=== PATIENT | male | born 1960 | race Caucasian/White ===

== ENCOUNTER 2017-12-14 15:00 | Outpatient (RCR) | payer MEDICAID, SELFPAY ==
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
--- NOTE | 2017-12-14 15:30 | HP.PTDCSUM ---
HP - PT D/C Summary It has been my pleasure to treat RICK GEORGE under orders from AMEENA [email or web address] for the diagnosis of non displaced fx of medial condyle L femur, chodromalacia patella for a total of 12 visit(s). Discharge Date: 12/14/17 Please see the following information for a summary of their discharge status. - Subjective Subjective: No pain. Pt reports that he is able to do all that he needs to do. Pt does not have a follow up with his surgeon. - Pain L knee pain Pain Intensity (Out of 10): 0 - Overall Improvement % Improvement: 50 - Objective Objective/Function: Gait: Walks with WBOS and some increase weakness in L knee. LE MMT: L hip abd 4+/5, knee ext and knee flex 4+/5 B, L hip flex 4+/5. L knee AROM: 0-130 degrees L knee flex. Stairs: up and down stairs recip with 1 rail. - Goals Goal 1:: I HEP Goal Progress: Goal Met Goal 2:: Increase L knee flexion to 130 degrees knee flexion to equal that of the R Goal Progress: Goal Met Goal 3:: Increase L knee and hip strength to 4+/5 all planes Goal Progress: Goal Met Goal 4:: Be able to walk with normal gait pattern with no antalgic gait Goal Progress: Progressing - Plan Plan: DC PT to HEP - D/C Information Discharge Comments: DC PT to HEP If there are questions or concerns regarding this patient's physical therapy, please feel free to call me at [phone]. Thank you for the referral of this patient. Sincerely, Martha Flores
== END 2017-12-14 19:00 | disposition home or self-care (01) ==
LOC: PT 15:00
PROVIDERS: Family Provider Student in an Organized Health Care Education/Training Program; PCP Student in an Organized Health Care Education/Training Program; Visit Provider Physician Assistant
DX: S72.435D Nondisplaced fracture of medial condyle of left femur, subsequent encounter for closed fracture with routine healing (principal); M22.42 Chondromalacia patellae, left knee
CPT/HCPCS: 97110; 97161; 97530

== ENCOUNTER 2018-01-11 10:45 | Outpatient (RCR) | payer MEDICAID, SELFPAY ==
[2017-12-28 13:13] VITALS: BP 141/90; PULSE 99; RESP 16; TEMP 37.4; BMI 60.0
--- NOTE | 2017-12-28 17:13 | PCM.WC.HP ---
(1) Other specified peripheral vascular diseases Status: Chronic Current Visit: Yes Code(s): I73.89 - Other specified peripheral vascular diseases (2) Ulcer of right foot with fat layer exposed Status: Chronic Current Visit: Yes Code(s): L97.512 - Non-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ulcer of other part of right foot with fat layer exposed (3) Chronic ulcer of left foot with fat layer exposed Status: Chronic Current Visit: Yes Code(s): L97.522 - Non-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ulcer of other part of left foot with fat layer exposed (4) Xerosis of skin Status: Chronic Current Visit: Yes Code(s): L85.3 - Xerosis cutis (5) Non-compliance Status: Chronic Current Visit: Yes Code(s): Z91.19 - Patient's noncompliance with other medical treatment and regimen History of Present Illness Date of Service: 12/30/17 Chief Complaint: foot ulcers History of Wound: This 57-year-old male with multiple comorbidities was seen for ulcers of both feet with an onset of nearly 2 months ago. The ulcer started as cracks in the skin. He has been applying hydrogel. He admits he is not able to follow offloading instructions because he is a [place]. Recently he has been out in the [place] with surgical shoes and [employer] bands over the feet. He denies fever, chill, nausea, vomiting, foot pain today. His skin is dry skin symptoms. He does have rest paresthesias and continued lack of sensation due to his neuropathy. He has multiple wounds to his right hand fingers and asked for evaluation today. These have worsened over the past couple weeks and he denies odor. He applied Neosporin and this is not helping Past Medical History Past Medical History: Chronic Problems (Last Reviewed 11/01/17 @ 16:03 by Wilmer Cartwright) Other specified peripheral vascular diseases (Chronic) Ulcer of right foot with fat layer exposed (Chronic) Chronic ulcer of left foot with fat layer exposed (Chronic) Xerosis of skin (Chronic) Non-compliance (Chronic) Diabetes mellitus type 2 with complications (Chronic) Hypertension (Chronic) Neuropathy (Chronic) Most likely severe diabetic neuropathy Workup [facility] Cerebrovascular disease (Chronic) Right thalamic stroke Surgical History: - - Toe amputations RLE Allergies/Adverse Reactions: Allergies atorvastatin Adverse Reaction (Verified 12/28/17 13:47) Unknown metformin Adverse Reaction (Verified 12/28/17 13:47) Diarrhea Home Medications: Ambulatory Orders Medication Instructions Recorded Lisinopril [Zestril] 5 mg PO DAILY #30 tablet 10/08/13 Gabapentin [Neurontin] 600 mg PO TIDCM 11/07/14 Tizanidine HCl [Zanaflex] 4 mg PO DAILY 11/07/14 Cetirizine HCl [Zyrtec] 10 mg PO DAILY #1 tablet 11/09/14 Ammonium Lactate [Amlactin] 57 gm TP PRN PRN 10/04/17 Baclofen 60 mg PO DAILY 10/04/17 Celecoxib [Celebrex] 200 mg PO DAILY 10/04/17 Cholecalciferol (Vitamin D3) 5,000 unit PO DAILY 10/04/17 [Vitamin D3] Cyanocobalamin [Vitamin B12] 1,000 mcg IM Q30D 10/04/17 Insulin Glargine [Lantus SoloStar 15 units SC QHS 10/04/17 Pen] Insulin Lispro [Humalog] 12 - 20 unit SC ACHS 10/04/17 Levomefolate/B6/B12/Algal Oil 1 each PO DAILY 10/04/17 [Metanx Capsule] Nortriptyline HCl 50 mg PO QHS 10/04/17 TraMADol [Ultram] 50 mg PO Q4H PRN PRN 10/04/17 Aspirin 325 mg PO DAILY@0800 10/21/17 - Family History Maternal Family History: Family History (Last Reviewed 11/01/17 @ 16:03 by Wilmer Cartwright) Other Arthritis Hypertension Diabetes Paternal Family History: Family History (Last Reviewed 11/01/17 @ 16:03 by Wilmer Cartwright) Other Arthritis Hypertension Diabetes Smoking Status: Never smoker Review of Systems Constitutional: Denies: Chills, Fever, Weakness, Fatigue Cardiovascular: Denies: Claudication Respiratory: Denies: Shortness of Breath Gastrointestinal: Denies: Nausea, Vomiting Skin: Reports: Skin Changes, Wounds Neurological: Denies: Numbness - Physical Exam Vital Signs Temp Pulse Resp BP 99.3 F H 99 16 141/90 H 12/28/17 13:13 12/28/17 13:13 12/28/17 13:13 12/28/17 13:13 General: Alert, Oriented x3, Cooperative HEENT: Atraumatic Extremities: No cyanosis, Capillary Refill Less than 3 Seconds, No Calf Tenderness - negative kandace and nieves signs bilateral, Diminished Peripheral Pulses Skin: Ulcer/ Wound - No purulence, no erythema, streaking, no exposed capsular bone bilateral his skin is very xerotic with multiple cracks and fissures. Wound beds are pale and granular without any new undermining or tunneling. There is lack of hair bilateral Wound Measurements and Assessment WC - Nurse 1 - General Ulcer Measurement Start: 12/28/17 13:13 Freq: Status: Active Protocol: Activity Type Activity Date Activity User E-Sign Co-Sign Detail Recorded Client Recorded Date Recorded By Document 12/28/17 13:13 [id number] 12/28/17 13:36 12/28/17 13:13 Wound Center Nurse 1 [Ulcer Assessment] #4 R HEEL -Current Size (cm) - Length 0.5 -Current Size (cm) - Width 0.1 -Current Size (cm) - Depth 0.1 -Total Square Cm 0.05 -Photo Taken Yes -Classification - Rousseau Grading ( Grade 1 Diabetic Ulcer) -Exudate Amt None Present (0 %) -Wound Margin Thickened -Granulation Amt None Present (0 %) -Necrosis Amt Small (1-33%) -Necrotic Tissue Type Adherent Slough -Structure Exposed N/A -Texture (Mechelle-wound Skin Appearance) Callus -Moisture (Mechelle-wound Skin Appearance Dry/Scaly ) -Color (Mechelle-wound Skin Appearance) No Abnormality -Temperature (Mechelle-wound Skin No Abnormality Appearance) (Pt Warm) -Ulcer Cleansing Wound Cleanser -Foul Odor after Cleansing No -Anesthetic Used 4% Lidocaine Solution #3 R 4TH MED -Current Size (cm) - Length 0.4 -Current Size (cm) - Width 0.1 -Current Size (cm) - Depth 0.1 -Total Square Cm 0.04 -Photo Taken No -Classification - Rousseau Grading ( Grade 1 Diabetic Ulcer) -Exudate Amt None Present (0 %) -Wound Margin Thickened -Granulation Amt Small (1-33%) -Granulation Quality Pale -Necrosis Amt None Present (0 %) -Structure Exposed N/A -Texture (Mechelle-wound Skin Appearance) Callus -Moisture (Mechelle-wound Skin Appearance Dry/Scaly ) -Color (Mechelle-wound Skin Appearance) No Abnormality -Temperature (Mechelle-wound Skin No Abnormality Appearance) (Pt Warm) -Ulcer Cleansing Rinsed/ Irrigated with Saline -Foul Odor after Cleansing No -Anesthetic Used 4% Lidocaine Solution #2 L HEEL -Current Size (cm) - Length 1 -Current Size (cm) - Width 0.1 -Current Size (cm) - Depth 0.2 -Total Square Cm 0.1 -Photo Taken Yes -Classification - Rousseau Grading ( Grade 1 Diabetic Ulcer) -Exudate Amt None Present (0 %) -Wound Margin Thickened -Granulation Amt Small (1-33%) -Granulation Quality [place] -Necrosis Amt Small (1-33%) -Necrotic Tissue Type Adherent Slough -Structure Exposed N/A -Texture (Mechelle-wound Skin Appearance) Callus -Moisture (Mechelle-wound Skin Appearance Dry/Scaly ) -Color (Mechelle-wound Skin Appearance) No Abnormality -Temperature (Mechelle-wound Skin No Abnormality Appearance) (Pt Warm) -Ulcer Cleansing Wound Cleanser -Foul Odor after Cleansing No -Anesthetic Used 4% Lidocaine Solution #1 L LAT FOOT -Current Size (cm) - Length 0.2 -Current Size (cm) - Width 1.2 -Current Size (cm) - Depth 0.2 -Total Square Cm 0.24 -Photo Taken Yes -Epithelialization Small 1-33% -Classification - Rousseau Grading ( Grade 1 Diabetic Ulcer) -Exudate Amt None Present (0 %) -Wound Margin Thickened -Granulation Amt Small (1-33%) -Granulation Quality [place] -Necrosis Amt None Present (0 %) -Structure Exposed N/A -Texture (Mechelle-wound Skin Appearance) Callus -Moisture (Mechelle-wound Skin Appearance No Abnormality ) -Color (Mechelle-wound Skin Appearance) No Abnormality -Temperature (Mechelle-wound Skin No Abnormality Appearance) (Pt Warm) -Tenderness on Palpation (Mechelle-wound No Skin Appearance) -Ulcer Cleansing Rinsed/ Irrigated with Saline -Foul Odor after Cleansing No -Anesthetic Used 4% Lidocaine Solution [Edema Assessment] -Right Calf (cm) 35.8 -Right Ankle (cm) 21.5 -Left Calf (cm) 35.2 -Left Ankle (cm) 21.5 WC - Nurse 2 - General Ulcer CM Notes Start: 12/28/17 13:13 Freq: Status: Active Protocol: Activity Type Activity Date Activity User E-Sign Co-Sign Detail Recorded Client Recorded Date Recorded By Document 12/28/17 14:03 [id number] 12/28/17 14:22 12/28/17 14:03 Wound Center Nurse 2 [Procedure/Treatment] #4 R HEEL -Time 14:09 -Correct Patient Yes -Correct Side, Site, Position Yes -Correct Procedure Yes -Procedure Performed Yes -Type of Procedure Debridement -Clinical Debridement Subcutaneous -Post Debridement Size (cm) - Length 0.6 -Post Debridement Size (cm) - Width 0.2 -Post Debridement Size (cm) - Depth 0.1 -Total Square Cm 0.12 -Wound/Ulcer Outcome Not Healed -Ulcer Cleansing Rinsed/ Irrigated with Saline -Foul Odor after Cleansing No -Bioengineered Tissue No -Topical Lidocaine (%) 4 -Bleeding Controlled with Pressure -Treatment Response Procedure Tolerated Well #3 R 4TH MED -Time 14:09 -Correct Patient Yes -Correct Side, Site, Position Yes -Correct Procedure Yes -Procedure Performed Yes -Type of Procedure Debridement -Clinical Debridement Subcutaneous -Post Debridement Size (cm) - Length 0.5 -Post Debridement Size (cm) - Width 0.2 -Post Debridement Size (cm) - Depth 0.1 -Total Square Cm 0.10 -Wound/Ulcer Outcome Not Healed -Ulcer Cleansing Rinsed/ Irrigated with Saline -Foul Odor after Cleansing No -Bioengineered Tissue No -Topical Lidocaine (%) 4 -Bleeding Controlled with Pressure -Treatment Response Procedure Tolerated Well #2 L HEEL -Time 14:09 -Correct Patient Yes -Correct Side, Site, Position Yes -Correct Procedure Yes -Procedure Performed Yes -Type of Procedure Debridement -Clinical Debridement Subcutaneous -Post Debridement Size (cm) - Length 1.1 -Post Debridement Size (cm) - Width 0.2 -Post Debridement Size (cm) - Depth 0.2 -Total Square Cm 0.22 -Wound/Ulcer Outcome Not Healed -Ulcer Cleansing Rinsed/ Irrigated with Saline -Foul Odor after Cleansing No -Bioengineered Tissue No -Topical Lidocaine (%) 4 -Bleeding Controlled with Pressure -Treatment Response Procedure Tolerated Well #1 L LAT FOOT -Time 14:10 -Correct Patient Yes -Correct Side, Site, Position Yes -Correct Procedure Yes -Procedure Performed Yes -Type of Procedure Debridement -Clinical Debridement Subcutaneous -Post Debridement Size (cm) - Length 0.3 -Post Debridement Size (cm) - Width 1.3 -Post Debridement Size (cm) - Depth 0.2 -Total Square Cm 0.39 -Wound/Ulcer Outcome Not Healed -Ulcer Cleansing Rinsed/ Irrigated with Saline -Foul Odor after Cleansing No -Bioengineered Tissue No -Topical Lidocaine (%) 4 -Bleeding Controlled with Pressure -Treatment Response Procedure Tolerated Well [See Physician Procedure note for Specifics] Pain Scale: 0-10 Numeric [Pain] -Is Patient Pain Free? Yes Musculoskeletal: No Tenderness to Palpation of Joints or Extremities, Muscle Wasting, - - Dorsal contraction of lesser toes of prominent metatarsal heads. right 1 and 2 toe amputation Neurological: - - Lack of epicritic sensation light touch bilateral Psych/Mental Status: Normal Affect, Appropriate Debridement Note Post-Debridement Measurements/Treatment WC - Nurse 2 - General Ulcer CM Notes Start: 12/28/17 13:13 Freq: Status: Active Protocol: Activity Type Activity Date Activity User E-Sign Co-Sign Detail Recorded Client Recorded Date Recorded By Document 12/28/17 14:03 [id number] 12/28/17 14:22 12/28/17 14:03 Wound Center Nurse 2 #4 R HEEL -Time 14:09 -Correct Patient Yes -Correct Side, Site, Position Yes -Correct Procedure Yes -Procedure Performed Yes -Type of Procedure Debridement -Clinical Debridement Subcutaneous -Post Debridement Size (cm) - Length 0.6 -Post Debridement Size (cm) - Width 0.2 -Post Debridement Size (cm) - Depth 0.1 -Total Square Cm 0.12 -Wound/Ulcer Outcome Not Healed -Ulcer Cleansing Rinsed/ Irrigated with Saline -Foul Odor after Cleansing No -Bioengineered Tissue No -Topical Lidocaine (%) 4 -Bleeding Controlled with Pressure -Treatment Response Procedure Tolerated Well #3 R 4TH MED -Time 14:09 -Correct Patient Yes -Correct Side, Site, Position Yes -Correct Procedure Yes -Procedure Performed Yes -Type of Procedure Debridement -Clinical Debridement Subcutaneous -Post Debridement Size (cm) - Length 0.5 -Post Debridement Size (cm) - Width 0.2 -Post Debridement Size (cm) - Depth 0.1 -Total Square Cm 0.10 -Wound/Ulcer Outcome Not Healed -Ulcer Cleansing Rinsed/ Irrigated with Saline -Foul Odor after Cleansing No -Bioengineered Tissue No -Topical Lidocaine (%) 4 -Bleeding Controlled with Pressure -Treatment Response Procedure Tolerated Well #2 L HEEL -Time 14:09 -Correct Patient Yes -Correct Side, Site, Position Yes -Correct Procedure Yes -Procedure Performed Yes -Type of Procedure Debridement -Clinical Debridement Subcutaneous -Post Debridement Size (cm) - Length 1.1 -Post Debridement Size (cm) - Width 0.2 -Post Debridement Size (cm) - Depth 0.2 -Total Square Cm 0.22 -Wound/Ulcer Outcome Not Healed -Ulcer Cleansing Rinsed/ Irrigated with Saline -Foul Odor after Cleansing No -Bioengineered Tissue No -Topical Lidocaine (%) 4 -Bleeding Controlled with Pressure -Treatment Response Procedure Tolerated Well #1 L LAT FOOT -Time 14:10 -Correct Patient Yes -Correct Side, Site, Position Yes -Correct Procedure Yes -Procedure Performed Yes -Type of Procedure Debridement -Clinical Debridement Subcutaneous -Post Debridement Size (cm) - Length 0.3 -Post Debridement Size (cm) - Width 1.3 -Post Debridement Size (cm) - Depth 0.2 -Total Square Cm 0.39 -Wound/Ulcer Outcome Not Healed -Ulcer Cleansing Rinsed/ Irrigated with Saline -Foul Odor after Cleansing No -Bioengineered Tissue No -Topical Lidocaine (%) 4 -Bleeding Controlled with Pressure -Treatment Response Procedure Tolerated Well Pain Scale: 0-10 Numeric Is Patient Pain Free? Yes Wound debrided: lateral plantar foot Laterality: Left Wound Grade/Stage: grade 1 Type of Debridement: Excisional debridement Anesthesia Used: 4% Lidocaine Solution Depth: in the subcutaneous layer Percentage of wound debrided: 100 Instrument Used: #15 blade Tissue Removed: fibrous, devitalized subcutaneous, biofilm, slough Severity: Fat Layer Exposed Amount of bleeding with debridement: Mild Bleeding Controlled with: Pressure Patient tolerated procedure well - Additional Wound Wound debrided: heel Laterality: Left Wound Grade/Stage: grade 1 Type of Debridement: Excisional debridement Anesthesia Used: 4% Lidocaine Solution Depth: in the subcutaneous layer Percentage of wound debrided: 100 Instrument Used: #15 blade Tissue Removed: fibrous, devitalized subcutaneous, biofilm, slough Severity: Fat Layer Exposed Amount of bleeding with debridement: Mild Bleeding Controlled with: Pressure Patient tolerated procedure: Patient tolerated procedure well - Additional Wound Wound debrided: heel Laterality: Right Wound Grade/Stage: grade 1 Type of Debridement: Excisional debridement Anesthesia Used: 4% Lidocaine Solution Depth: in the subcutaneous layer Percentage of wound debrided: 100 Instrument Used: #15 blade Tissue Removed: fibrous, devitalized subcutaneous, biofilm, slough Severity: Fat Layer Exposed Amount of bleeding with debridement: Mild Bleeding Controlled with: Pressure Patient tolerated procedure: Patient tolerated procedure well - Additional Wound Wound debrided: sub 4th metatarsal head Laterality: Right Wound Grade/Stage: grade 1 Type of Debridement: Excisional debridement Anesthesia Used: 4% Lidocaine Solution Depth: in the subcutaneous layer Percentage of wound debrided: 100 Instrument Used: #15 blade Tissue Removed: fibrous, devitalized subcutaneous, biofilm, slough Severity: Fat Layer Exposed Amount of bleeding with debridement: Mild Bleeding Controlled with: Pressure Patient tolerated procedure: Patient tolerated procedure well Assessment/Plan Active Problems (Last Reviewed 11/01/17 @ 16:03 by Wilmer Cartwright) Other specified peripheral vascular diseases (Chronic) Ulcer of right foot with fat layer exposed (Chronic) Chronic ulcer of left foot with fat layer exposed (Chronic) Xerosis of skin (Chronic) Non-compliance (Chronic) Assessment: Bilateral heel ulcers with fat exposed. Right sub-fourth metatarsal head ulcer with fat exposed. Left sub-fifth metatarsal head ulcer with fat exposed. Diabetes with neuropathy. Xerosis. Hammertoes bilateral. Noncompliance. Finger ulcers right hand 1,2,3 Plan: I reviewed and discussed his care plan today. Also debridement was performed as noted in the clinical panel. He was reassured there are no signs of infection. Tegan dry dressings were applied. He is advised to change every day. To continue with strict offloading with surgical shoes. He already has these devices and compliance was discussed. I do not recommend he continues to walk around in this cold weather due to frostbite concern and his neuropathy. To moisturize the adjacent skin to improve skin integrity to his hands and feet. Updated labs and x-rays were ordered and these are pending. He understands he is at risk for continued infection development, delayed healing. He has nonhealing wounds to his hands and would like to seek intervention. I recommend he follow-up with a physician that can also treat him for the hand at the wound center here to follow-up with me on an intermittent basis if needed. Will communicate his care plan. To maintain and improve diabetic control and nutritional supplementation to optimize healing. A prescription for Gregg was provided.To return to clinic in one week or call sooner if problems or concerns.
[2018-01-04 10:51] VITALS: BP 153/83; PULSE 98; RESP 16; TEMP 36.9; BMI 60.0
--- NOTE | 2018-01-04 12:48 | PCM.WC.PN ---
(1) Ulcer of right foot with fat layer exposed Status: Chronic Current Visit: Yes Code(s): L97.512 - Non-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ulcer of other part of right foot with fat layer exposed (2) Chronic ulcer of left foot with fat layer exposed Status: Chronic Current Visit: Yes Code(s): L97.522 - Non-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ulcer of other part of left foot with fat layer exposed (3) Other specified peripheral vascular diseases Status: Chronic Current Visit: Yes Code(s): I73.89 - Other specified peripheral vascular diseases (4) Xerosis of skin Status: Chronic Current Visit: Yes Code(s): L85.3 - Xerosis cutis (5) Non-compliance Status: Chronic Current Visit: Yes Code(s): Z91.19 - Patient's noncompliance with other medical treatment and regimen Type of Wound Date of Service: 01/04/18 Chief Complaint: foot ulcers History of Wound: This 57-year-old male with multiple comorbidities was seen for ulcers of both feet with an onset of nearly 2 months ago. The ulcer started as cracks in the skin. He has been applying hydrogel. He has tried his best to decrease his activity and wear his offloading surgical shoes this past week. He thinks his right heel wound has healed and there is no drainage. He denies fever, chill, nausea, vomiting, foot pain today. His skin is dry skin symptoms. He does have rest paresthesias and continued lack of sensation due to his neuropathy. He has multiple wounds to his right hand fingers and he was seen today by Dr. Vance. Progress of Wound: improving - Physical Exam Vital Signs Temp Pulse Resp BP 98.4 F 98 16 153/83 H 01/04/18 10:51 01/04/18 10:51 01/04/18 10:51 01/04/18 10:51 General: Alert, Oriented x3, Cooperative Extremities: No cyanosis, Capillary Refill Less than 3 Seconds, No Calf Tenderness - Negative Ashanti and Palma bilateral, Diminished Peripheral Pulses, Edema, Tenderness - No pain with wound manipulation bilateral Skin: Ulcer/ Wound - No purulence, no erythema, streaking, no infection bilateral. Full epithelialization is noted to the right heel ulcer. The peripheral skin is atrophic and without hair bilateral Wound Measurements and Assessment WC - Nurse 1 - General Ulcer Measurement Start: 12/28/17 13:13 Freq: Status: Active Protocol: Activity Type Activity Date Activity User E-Sign Co-Sign Detail Recorded Client Recorded Date Recorded By Document 01/04/18 10:51 MARJORIE [id number] 01/04/18 11:07 MARJORIE 01/04/18 10:51 Wound Center Nurse 1 [Ulcer Assessment] 7-RIGHT RING FINGER -Combined with other wound No -Current Size (cm) - Length 0.2 -Current Size (cm) - Width 1.4 -Current Size (cm) - Depth 0.2 -Total Square Cm 0.28 -Photo Taken Yes -Epithelialization None Present -Tunneling No -Undermining/Tunneling No -Circular Undermining No -Classification - Thickness Full Thickness without Exposed Support Structure -Exudate Amt None Present (0 %) -Wound Margin Flat & Intact -Granulation Amt Large (67-100%) -Granulation Quality Red -Slough/Fibrin Yes -Necrosis Amt Small (1-33%) -Necrotic Tissue Type Adherent Slough -Structure Exposed N/A -Texture (Mechelle-wound Skin Appearance) Assessed Callus Localized Edema -Moisture (Mechelle-wound Skin Appearance Assessed ) Dry/Scaly -Color (Mechelle-wound Skin Appearance) Assessed -Temperature (Mechelle-wound Skin No Abnormality Appearance) (Pt Warm) -Tenderness on Palpation (Mechelle-wound No Skin Appearance) -Ulcer Cleansing Rinsed/ Irrigated with Saline -Foul Odor after Cleansing No -Anesthetic Used 4% Lidocaine Solution 6-RIGHT MIDDLE FINGER -Combined with other wound No -Current Size (cm) - Length 0.1 -Current Size (cm) - Width 0.8 -Current Size (cm) - Depth 0.2 -Total Square Cm 0.08 -Photo Taken Yes -Epithelialization Medium 34-66% -Tunneling No -Undermining/Tunneling No -Circular Undermining No -Classification - Thickness Full Thickness without Exposed Support Structure -Exudate Amt None Present (0 %) -Wound Margin Flat & Intact -Granulation Amt Medium (34-66%) -Granulation Quality Red -Slough/Fibrin Yes -Necrosis Amt Small (1-33%) -Necrotic Tissue Type Adherent Slough -Structure Exposed N/A -Texture (Mechelle-wound Skin Appearance) Assessed Callus -Moisture (Mechelle-wound Skin Appearance Assessed ) Dry/Scaly -Color (Mechelle-wound Skin Appearance) Assessed -Temperature (Mechelle-wound Skin No Abnormality Appearance) (Pt Warm) -Tenderness on Palpation (Mechelle-wound No Skin Appearance) -Ulcer Cleansing Rinsed/ Irrigated with Saline -Foul Odor after Cleansing No -Anesthetic Used 4% Lidocaine Solution 5-RIGHT INDEX FINGER -Combined with other wound No -Current Size (cm) - Length 0.5 -Current Size (cm) - Width 0.6 -Current Size (cm) - Depth 0.1 -Total Square Cm 0.30 -Photo Taken Yes -Epithelialization None Present -Tunneling No -Undermining/Tunneling No -Circular Undermining No -Classification - Thickness Unclassifiable (Eschar Covered ) -Exudate Amt None Present (0 %) -Wound Margin Flat & Intact -Granulation Amt None Present (0 %) -Slough/Fibrin Yes -Necrosis Amt Large (67-100%) -Necrotic Tissue Type Adherent Slough -Structure Exposed N/A -Texture (Mechelle-wound Skin Appearance) Assessed Localized Edema -Moisture (Mechelle-wound Skin Appearance Assessed ) Dry/Scaly -Color (Mechelle-wound Skin Appearance) Assessed -Temperature (Mechelle-wound Skin No Abnormality Appearance) (Pt Warm) -Tenderness on Palpation (Mechelle-wound No Skin Appearance) -Ulcer Cleansing Rinsed/ Irrigated with Saline -Foul Odor after Cleansing No -Anesthetic Used 4% Lidocaine Solution #4 R HEEL -Combined with other wound No -Current Size (cm) - Length 0.1 -Current Size (cm) - Width 0.1 -Current Size (cm) - Depth 0.1 -Total Square Cm 0.01 -Photo Taken No -Epithelialization Small 1-33% -Tunneling No -Undermining/Tunneling No -Circular Undermining No -Exudate Amt None Present (0 %) -Wound Margin Flat & Intact -Granulation Amt None Present (0 %) -Granulation Quality Pale -Necrosis Amt Large (67-100%) -Structure Exposed N/A -Texture (Mechelle-wound Skin Appearance) Assessed Callus -Moisture (Mechelle-wound Skin Appearance Assessed ) Dry/Scaly -Color (Mechelle-wound Skin Appearance) Assessed -Temperature (Mechelle-wound Skin No Abnormality Appearance) (Pt Warm) -Tenderness on Palpation (Mechelle-wound No Skin Appearance) -Ulcer Cleansing Rinsed/ Irrigated with Saline -Foul Odor after Cleansing No -Anesthetic Used 4% Lidocaine Solution #3 R 4TH METATARSAL -Combined with other wound No -Current Size (cm) - Length 0.2 -Current Size (cm) - Width 0.1 -Current Size (cm) - Depth 0.1 -Total Square Cm 0.02 -Photo Taken No -Epithelialization Small 1-33% -Tunneling No -Undermining/Tunneling No -Circular Undermining No -Exudate Amt Small (1-33%) -Exudate Type Serosanguineous -Wound Margin Flat & Intact -Granulation Amt Large (67-100%) -Granulation Quality Pale -Slough/Fibrin Yes -Necrosis Amt Small (1-33%) -Necrotic Tissue Type Adherent Slough -Structure Exposed N/A -Texture (Mechelle-wound Skin Appearance) Assessed Callus -Moisture (Mechelle-wound Skin Appearance Assessed ) Dry/Scaly -Color (Mechelle-wound Skin Appearance) Assessed -Temperature (Mechelle-wound Skin No Abnormality Appearance) (Pt Warm) -Tenderness on Palpation (Mechelle-wound No Skin Appearance) -Ulcer Cleansing Rinsed/ Irrigated with Saline -Foul Odor after Cleansing No -Anesthetic Used 4% Lidocaine Solution #2 L HEEL -Combined with other wound No -Current Size (cm) - Length 0.1 -Current Size (cm) - Width 1.8 -Current Size (cm) - Depth 0.1 -Total Square Cm 0.18 -Photo Taken No -Epithelialization Medium 34-66% -Tunneling No -Undermining/Tunneling No -Circular Undermining No -Exudate Amt Small (1-33%) -Exudate Type Serosanguineous -Wound Margin Flat & Intact -Granulation Amt Large (67-100%) -Granulation Quality Pale -Slough/Fibrin Yes -Necrosis Amt Small (1-33%) -Necrotic Tissue Type Adherent Slough -Structure Exposed N/A -Texture (Mechelle-wound Skin Appearance) Assessed Callus -Moisture (Mechelle-wound Skin Appearance Assessed ) Dry/Scaly -Color (Mechelle-wound Skin Appearance) Assessed -Temperature (Mechelle-wound Skin No Abnormality Appearance) (Pt Warm) -Tenderness on Palpation (Mechelle-wound No Skin Appearance) -Ulcer Cleansing Rinsed/ Irrigated with Saline -Foul Odor after Cleansing No -Anesthetic Used 4% Lidocaine Solution #1 L LAT FOOT -Combined with other wound No -Current Size (cm) - Length 0.2 -Current Size (cm) - Width 0.9 -Current Size (cm) - Depth 0.1 -Total Square Cm 0.18 -Photo Taken No -Epithelialization Small 1-33% -Tunneling No -Undermining/Tunneling No -Circular Undermining No -Exudate Amt Small (1-33%) -Exudate Type Serosanguineous -Wound Margin Flat & Intact -Granulation Amt Medium (34-66%) -Granulation Quality Pale Ester -Slough/Fibrin Yes -Necrosis Amt Small (1-33%) -Necrotic Tissue Type Adherent Slough -Structure Exposed N/A -Texture (Mechelle-wound Skin Appearance) Assessed Callus -Moisture (Mechelle-wound Skin Appearance Assessed ) Dry/Scaly -Color (Mechelle-wound Skin Appearance) Assessed -Temperature (Mechelle-wound Skin No Abnormality Appearance) (Pt Warm) -Tenderness on Palpation (Mechelle-wound No Skin Appearance) -Ulcer Cleansing Rinsed/ Irrigated with Saline -Foul Odor after Cleansing No -Anesthetic Used 4% Lidocaine Solution [Edema Assessment] -Lower Limb Edema Present NA WC - Nurse 2 - General Ulcer CM Notes Start: 12/28/17 13:13 Freq: Status: Active Protocol: Activity Type Activity Date Activity User E-Sign Co-Sign Detail Recorded Client Recorded Date Recorded By Document 01/04/18 11:32 TM [id number] 01/04/18 11:37 TM Document 01/04/18 12:33 DV [id number] 01/04/18 12:42 DV 01/04/18 01/04/18 11:32 12:33 Wound Center Nurse 2 [Procedure/Treatment] 7-RIGHT RING FINGER -Time 12:33 -Correct Patient Yes -Correct Side, Site, Position Yes -Correct Procedure Yes -Procedure Performed Yes -Type of Procedure Debridement -Clinical Debridement Subcutaneous -Post Debridement Size (cm) - Length 0.4 -Post Debridement Size (cm) - Width 1.5 -Post Debridement Size (cm) - Depth 0.2 -Total Square Cm 0.60 -Wound/Ulcer Outcome Not Healed -Ulcer Cleansing Rinsed/ Irrigated with Saline -Foul Odor after Cleansing No -Bioengineered Tissue No -Bleeding Controlled with Pressure -Treatment Response Procedure Tolerated Well 6-RIGHT MIDDLE FINGER -Time 12:34 -Correct Patient Yes -Correct Side, Site, Position Yes -Correct Procedure Yes -Procedure Performed Yes -Type of Procedure Debridement -Clinical Debridement Subcutaneous -Post Debridement Size (cm) - Length 0.3 -Post Debridement Size (cm) - Width 0.9 -Post Debridement Size (cm) - Depth 0.2 -Total Square Cm 0.27 -Wound/Ulcer Outcome Not Healed -Ulcer Cleansing Rinsed/ Irrigated with Saline -Foul Odor after Cleansing No -Bioengineered Tissue No -Bleeding Controlled with Pressure -Treatment Response Procedure Tolerated Well 5-RIGHT INDEX FINGER -Time 12:34 -Correct Patient Yes -Correct Side, Site, Position Yes -Correct Procedure Yes -Procedure Performed Yes -Type of Procedure Debridement -Clinical Debridement Subcutaneous -Post Debridement Size (cm) - Length 0.8 -Post Debridement Size (cm) - Width 0.7 -Post Debridement Size (cm) - Depth 0.1 -Total Square Cm 0.56 -Wound/Ulcer Outcome Not Healed -Ulcer Cleansing Rinsed/ Irrigated with Saline -Foul Odor after Cleansing No -Bioengineered Tissue No -Bleeding Controlled with Pressure -Treatment Response Procedure Tolerated Well #4 R HEEL -Time 11:32 -Correct Patient Yes -Correct Side, Site, Position Yes -Correct Procedure Yes -Procedure Performed Yes -Post Debridement Size (cm) - Length 0 -Post Debridement Size (cm) - Width 0 -Post Debridement Size (cm) - Depth 0 -Total Square Cm 0 -Wound/Ulcer Outcome Healed- Epithelialized -Ulcer Cleansing Rinsed/ Irrigated with Saline -Foul Odor after Cleansing No -Bioengineered Tissue No -Topical Lidocaine (%) 4 -Bleeding Controlled with NA -Treatment Response Procedure Tolerated Well #3 R 4TH METATARSAL -Time 11:33 -Correct Patient Yes -Correct Side, Site, Position Yes -Correct Procedure Yes -Procedure Performed Yes -Type of Procedure Debridement -Clinical Debridement Subcutaneous -Post Debridement Size (cm) - Length 0.3 -Post Debridement Size (cm) - Width 0.2 -Post Debridement Size (cm) - Depth 0.1 -Total Square Cm 0.06 -Wound/Ulcer Outcome Not Healed -Ulcer Cleansing Rinsed/ Irrigated with Saline -Foul Odor after Cleansing No -Bioengineered Tissue Yes -Type of bioengineered Tissue EPIFIX -Expiration Date 10/17/22 -Product Lot Number [id number] -Percent Used 33 -Topical Lidocaine (%) 4 -Bleeding Controlled with Pressure -Treatment Response Procedure Tolerated Well #2 L HEEL -Time 11:34 -Correct Patient Yes -Correct Side, Site, Position Yes -Correct Procedure Yes -Procedure Performed Yes -Type of Procedure Debridement -Clinical Debridement Subcutaneous -Post Debridement Size (cm) - Length 0.2 -Post Debridement Size (cm) - Width 1.9 -Post Debridement Size (cm) - Depth 0.1 -Total Square Cm 0.38 -Wound/Ulcer Outcome Not Healed -Ulcer Cleansing Rinsed/ Irrigated with Saline -Foul Odor after Cleansing No -Bioengineered Tissue Yes -Type of bioengineered Tissue EPIFIX -Expiration Date 10/17/22 -Product Lot Number [id number] -Percent Used 33 -Topical Lidocaine (%) 4 -Bleeding Controlled with Pressure -Treatment Response Procedure Tolerated Well #1 L LAT FOOT -Time 11:35 -Correct Patient Yes -Correct Side, Site, Position Yes -Correct Procedure Yes -Procedure Performed Yes -Type of Procedure Debridement -Clinical Debridement Subcutaneous -Post Debridement Size (cm) - Length 0.3 -Post Debridement Size (cm) - Width 1.0 -Post Debridement Size (cm) - Depth 0.1 -Total Square Cm 0.30 -Wound/Ulcer Outcome Not Healed -Ulcer Cleansing Rinsed/ Irrigated with Saline -Foul Odor after Cleansing No -Bioengineered Tissue Yes -Type of bioengineered Tissue EPIFIX -Expiration Date 10/17/22 -Product Lot Number [id number] -Percent Used 33 -Topical Lidocaine (%) 4 -Bleeding Controlled with Pressure -Treatment Response Procedure Tolerated Well [See Physician Procedure note for Specifics] Pain Scale: 0-10 Numeric [Pain] -Is Patient Pain Free? Yes Musculoskeletal: No Tenderness to Palpation of Joints or Extremities, Muscle Wasting, Tenderness - dorsal contraction of lesser digits and prominent metatarsal heads bilateral, - - Amputation status noted Neurological: - - lack of epicritic sensation light touch bilateral consistent with neuropathy Psych/Mental Status: Normal Affect, Appropriate Debridement Note Post-Debridement Measurements/Treatment WC - Nurse 2 - General Ulcer CM Notes Start: 12/28/17 13:13 Freq: Status: Active Protocol: Activity Type Activity Date Activity User E-Sign Co-Sign Detail Recorded Client Recorded Date Recorded By Document 12/28/17 14:03 [id number] 12/28/17 14:22 TM Document 01/04/18 11:32 TM [id number] 01/04/18 11:37 TM Document 01/04/18 12:33 [id number] 01/04/18 12:42 12/28/17 01/04/18 01/04/18 14:03 11:32 12:33 Wound Center Nurse 2 7-RIGHT RING FINGER -Time 12:33 -Correct Patient Yes -Correct Side, Site, Position Yes -Correct Procedure Yes -Procedure Performed Yes -Type of Procedure Debridement -Clinical Debridement Subcutaneous -Post Debridement Size (cm) - Length 0.4 -Post Debridement Size (cm) - Width 1.5 -Post Debridement Size (cm) - Depth 0.2 -Total Square Cm 0.60 -Wound/Ulcer Outcome Not Healed -Ulcer Cleansing Rinsed/ Irrigated with Saline -Foul Odor after Cleansing No -Bioengineered Tissue No -Bleeding Controlled with Pressure -Treatment Response Procedure Tolerated Well 6-RIGHT MIDDLE FINGER -Time 12:34 -Correct Patient Yes -Correct Side, Site, Position Yes -Correct Procedure Yes -Procedure Performed Yes -Type of Procedure Debridement -Clinical Debridement Subcutaneous -Post Debridement Size (cm) - Length 0.3 -Post Debridement Size (cm) - Width 0.9 -Post Debridement Size (cm) - Depth 0.2 -Total Square Cm 0.27 -Wound/Ulcer Outcome Not Healed -Ulcer Cleansing Rinsed/ Irrigated with Saline -Foul Odor after Cleansing No -Bioengineered Tissue No -Bleeding Controlled with Pressure -Treatment Response Procedure Tolerated Well 5-RIGHT INDEX FINGER -Time 12:34 -Correct Patient Yes -Correct Side, Site, Position Yes -Correct Procedure Yes -Procedure Performed Yes -Type of Procedure Debridement -Clinical Debridement Subcutaneous -Post Debridement Size (cm) - Length 0.8 -Post Debridement Size (cm) - Width 0.7 -Post Debridement Size (cm) - Depth 0.1 -Total Square Cm 0.56 -Wound/Ulcer Outcome Not Healed -Ulcer Cleansing Rinsed/ Irrigated with Saline -Foul Odor after Cleansing No -Bioengineered Tissue No -Bleeding Controlled with Pressure -Treatment Response Procedure Tolerated Well #4 R HEEL -Time 14:09 11:32 -Correct Patient Yes Yes -Correct Side, Site, Position Yes Yes -Correct Procedure Yes Yes -Procedure Performed Yes Yes -Type of Procedure Debridement -Clinical Debridement Subcutaneous -Post Debridement Size (cm) - Length 0.6 0 -Post Debridement Size (cm) - Width 0.2 0 -Post Debridement Size (cm) - Depth 0.1 0 -Total Square Cm 0.12 0 -Wound/Ulcer Outcome Not Healed Healed- Epithelialized -Ulcer Cleansing Rinsed/ Rinsed/ Irrigated with Irrigated with Saline Saline -Foul Odor after Cleansing No No -Bioengineered Tissue No No -Topical Lidocaine (%) 4 4 -Bleeding Controlled with Pressure NA -Treatment Response Procedure Procedure Tolerated Well Tolerated Well #3 R 4TH METATARSAL -Time 14:09 11:33 -Correct Patient Yes Yes -Correct Side, Site, Position Yes Yes -Correct Procedure Yes Yes -Procedure Performed Yes Yes -Type of Procedure Debridement Debridement -Clinical Debridement Subcutaneous Subcutaneous -Post Debridement Size (cm) - Length 0.5 0.3 -Post Debridement Size (cm) - Width 0.2 0.2 -Post Debridement Size (cm) - Depth 0.1 0.1 -Total Square Cm 0.10 0.06 -Wound/Ulcer Outcome Not Healed Not Healed -Ulcer Cleansing Rinsed/ Rinsed/ Irrigated with Irrigated with Saline Saline -Foul Odor after Cleansing No No -Bioengineered Tissue No Yes -Type of bioengineered Tissue EPIFIX -Expiration Date 10/17/22 -Product Lot Number [id number] -Percent Used 33 -Topical Lidocaine (%) 4 4 -Bleeding Controlled with Pressure Pressure -Treatment Response Procedure Procedure Tolerated Well Tolerated Well #2 L HEEL -Time 14:09 11:34 -Correct Patient Yes Yes -Correct Side, Site, Position Yes Yes -Correct Procedure Yes Yes -Procedure Performed Yes Yes -Type of Procedure Debridement Debridement -Clinical Debridement Subcutaneous Subcutaneous -Post Debridement Size (cm) - Length 1.1 0.2 -Post Debridement Size (cm) - Width 0.2 1.9 -Post Debridement Size (cm) - Depth 0.2 0.1 -Total Square Cm 0.22 0.38 -Wound/Ulcer Outcome Not Healed Not Healed -Ulcer Cleansing Rinsed/ Rinsed/ Irrigated with Irrigated with Saline Saline -Foul Odor after Cleansing No No -Bioengineered Tissue No Yes -Type of bioengineered Tissue EPIFIX -Expiration Date 10/17/22 -Product Lot Number [id number] -Percent Used 33 -Topical Lidocaine (%) 4 4 -Bleeding Controlled with Pressure Pressure -Treatment Response Procedure Procedure Tolerated Well Tolerated Well #1 L LAT FOOT -Time 14:10 11:35 -Correct Patient Yes Yes -Correct Side, Site, Position Yes Yes -Correct Procedure Yes Yes -Procedure Performed Yes Yes -Type of Procedure Debridement Debridement -Clinical Debridement Subcutaneous Subcutaneous -Post Debridement Size (cm) - Length 0.3 0.3 -Post Debridement Size (cm) - Width 1.3 1.0 -Post Debridement Size (cm) - Depth 0.2 0.1 -Total Square Cm 0.39 0.30 -Wound/Ulcer Outcome Not Healed Not Healed -Ulcer Cleansing Rinsed/ Rinsed/ Irrigated with Irrigated with Saline Saline -Foul Odor after Cleansing No No -Bioengineered Tissue No Yes -Type of bioengineered Tissue EPIFIX -Expiration Date 10/17/22 -Product Lot Number [id number] -Percent Used 33 -Topical Lidocaine (%) 4 4 -Bleeding Controlled with Pressure Pressure -Treatment Response Procedure Procedure Tolerated Well Tolerated Well Pain Scale: 0-10 Numeric Is Patient Pain Free? Yes Yes Wound debrided: sub 4 metatarsal head sulcus Laterality: Right Wound Grade/Stage: grade 1 Type of Debridement: Excisional debridement Anesthesia Used: 4% Lidocaine Solution Depth: in the subcutaneous layer Percentage of wound debrided: 100 Instrument Used: #15 blade Tissue Removed: fibrous, devitalized subcutaneous, biofilm, slough Severity: Fat Layer Exposed Amount of bleeding with debridement: Mild Bleeding Controlled with: Pressure Patient tolerated procedure well - Additional Wound Wound debrided: plantar lateral forefoot Laterality: Left Wound Grade/Stage: grade 1 Type of Debridement: Excisional debridement Anesthesia Used: 4% Lidocaine Solution Depth: in the subcutaneous layer Percentage of wound debrided: 100 Instrument Used: #15 blade Tissue Removed: fibrous, devitalized subcutaneous, biofilm, slough Severity: Fat Layer Exposed Amount of bleeding with debridement: Mild Bleeding Controlled with: Pressure Patient tolerated procedure: Patient tolerated procedure well Assessment/Plan Active Problems (Last Reviewed 11/01/17 @ 16:03 by Wilmer Cartwright) Other specified peripheral vascular diseases (Chronic) Ulcer of right foot with fat layer exposed (Chronic) Chronic ulcer of left foot with fat layer exposed (Chronic) Xerosis of skin (Chronic) Non-compliance (Chronic) Assessment: Right heel ulcer healed. left heel ulcers with fat exposed. Right sub-fourth metatarsal head ulcer with fat exposed. Left sub-fifth metatarsal head ulcer with fat exposed. Diabetes with neuropathy. Xerosis. Hammertoes bilateral. Noncompliance. Finger ulcers right hand 1,2,3 (sees Dr. Vance) Plan: I reviewed and discussed his care plan today. Subcutaneous ulceration debridement was performed as noted in the clinical panel. He was reassured there are no signs of infection. He is approved for application of advanced wound care product, epi fix. Verbal consent was obtained and he understands the indications, application process, and anticipated healing time and management. The product was applied to the 3 wound sites according to standard protocol and he tolerated as well. This was secured in place with a wound veil and Steri-Strips. He was advised to keep this clean, dry, and intact until follow-up next week. I provided him with a prescription for bilateral shower bags. To continue with strict offloading with surgical shoes. He already has these devices and compliance was discussed. To moisturize the adjacent skin to improve skin integrity to his hands and feet. Updated labs and x-rays were ordered. The following diagnostic data was reviewed: (labs 11/02/2017) Hemoglobin A1c 6.3%, total protein 7.2, albumin 3.7, creatinine 0.97, white blood cell count 10.25, platelet 345. His last progress note from Dr. Avery Escalante was also reviewed from November 01, 2017 in which it was noted he does also have a diagnosis of raynauds disease noted to the fingers and rest less leg syndrome amongst treatment of his other aformentioned chronic comorbidities. He understands he is at risk for continued infection development, delayed healing. He has nonhealing wounds to his hands and would like to seek intervention. Dr. Vance will see him today for this condition and intervention is greatly appreciated. To maintain and improve diabetic control and nutritional supplementation to optimize healing. A prescription for Gregg was provided. To return to clinic in one week or call sooner if problems or concerns. Answered all his questions.
--- NOTE | 2018-01-04 12:55 | PN.PCM_ITS ---
(1) Ulcer of right foot with fat layer exposed Status: Chronic Current Visit: Yes Code(s): L97.512 - Non-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ulcer of other part of right foot with fat layer exposed (2) Chronic ulcer of left foot with fat layer exposed Status: Chronic Current Visit: Yes Code(s): L97.522 - Non-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ulcer of other part of left foot with fat layer exposed (3) Other specified peripheral vascular diseases Status: Chronic Current Visit: Yes Code(s): I73.89 - Other specified peripheral vascular diseases (4) Xerosis of skin Status: Chronic Current Visit: Yes Code(s): L85.3 - Xerosis cutis (5) Non-compliance Status: Chronic Current Visit: Yes Code(s): Z91.19 - Patient's noncompliance with other medical treatment and regimen Type of Wound Date of Service: 01/04/18 Chief Complaint: foot ulcers History of Wound: This 57-year-old male with multiple comorbidities was seen for ulcers of both feet with an onset of nearly 2 months ago. The ulcer started as cracks in the skin. He has been applying hydrogel. He has tried his best to decrease his activity and wear his offloading surgical shoes this past week. He thinks his right heel wound has healed and there is no drainage. He denies fever, chill, nausea, vomiting, foot pain today. His skin is dry skin symptoms. He does have rest paresthesias and continued lack of sensation due to his neuropathy. He has multiple wounds to his right hand fingers and he was seen today by Dr. Vacne. Progress of Wound: improving - Physical Exam Vital Signs Temp Pulse Resp BP 98.4 F 98 16 153/83 H 01/04/18 10:51 01/04/18 10:51 01/04/18 10:51 01/04/18 10:51 General: Alert, Oriented x3, Cooperative Extremities: No cyanosis, Capillary Refill Less than 3 Seconds, No Calf Tenderness - Negative Ashanti and Palma bilateral, Diminished Peripheral Pulses, Edema, Tenderness - No pain with wound manipulation bilateral Skin: Ulcer/ Wound - No purulence, no erythema, streaking, no infection bilateral. Full epithelialization is noted to the right heel ulcer. The peripheral skin is atrophic and without hair bilateral Wound Measurements and Assessment WC - Nurse 1 - General Ulcer Measurement Start: 12/28/17 13:13 Freq: Status: Active Protocol: Activity Type Activity Date Activity User E-Sign Co-Sign Detail Recorded Client Recorded Date Recorded By Document 01/04/18 10:51 MARJORIE [id number] 01/04/18 11:07 MARJORIE 01/04/18 10:51 Wound Center Nurse 1 [Ulcer Assessment] 7-RIGHT RING FINGER -Combined with other wound No -Current Size (cm) - Length 0.2 -Current Size (cm) - Width 1.4 -Current Size (cm) - Depth 0.2 -Total Square Cm 0.28 -Photo Taken Yes -Epithelialization None Present -Tunneling No -Undermining/Tunneling No -Circular Undermining No -Classification - Thickness Full Thickness without Exposed Support Structure -Exudate Amt None Present (0 %) -Wound Margin Flat & Intact -Granulation Amt Large (67-100%) -Granulation Quality Red -Slough/Fibrin Yes -Necrosis Amt Small (1-33%) -Necrotic Tissue Type Adherent Slough -Structure Exposed N/A -Texture (Mechelle-wound Skin Appearance) Assessed Callus Localized Edema -Moisture (Mechelle-wound Skin Appearance Assessed ) Dry/Scaly -Color (Mechelle-wound Skin Appearance) Assessed -Temperature (Mechelle-wound Skin No Abnormality Appearance) (Pt Warm) -Tenderness on Palpation (Mechelle-wound No Skin Appearance) -Ulcer Cleansing Rinsed/ Irrigated with Saline -Foul Odor after Cleansing No -Anesthetic Used 4% Lidocaine Solution 6-RIGHT MIDDLE FINGER -Combined with other wound No -Current Size (cm) - Length 0.1 -Current Size (cm) - Width 0.8 -Current Size (cm) - Depth 0.2 -Total Square Cm 0.08 -Photo Taken Yes -Epithelialization Medium 34-66% -Tunneling No -Undermining/Tunneling No -Circular Undermining No -Classification - Thickness Full Thickness without Exposed Support Structure -Exudate Amt None Present (0 %) -Wound Margin Flat & Intact -Granulation Amt Medium (34-66%) -Granulation Quality Red -Slough/Fibrin Yes -Necrosis Amt Small (1-33%) -Necrotic Tissue Type Adherent Slough -Structure Exposed N/A -Texture (Mechelle-wound Skin Appearance) Assessed Callus -Moisture (Mechelle-wound Skin Appearance Assessed ) Dry/Scaly -Color (Mechelle-wound Skin Appearance) Assessed -Temperature (Mechelle-wound Skin No Abnormality Appearance) (Pt Warm) -Tenderness on Palpation (Mechelle-wound No Skin Appearance) -Ulcer Cleansing Rinsed/ Irrigated with Saline -Foul Odor after Cleansing No -Anesthetic Used 4% Lidocaine Solution 5-RIGHT INDEX FINGER -Combined with other wound No -Current Size (cm) - Length 0.5 -Current Size (cm) - Width 0.6 -Current Size (cm) - Depth 0.1 -Total Square Cm 0.30 -Photo Taken Yes -Epithelialization None Present -Tunneling No -Undermining/Tunneling No -Circular Undermining No -Classification - Thickness Unclassifiable (Eschar Covered ) -Exudate Amt None Present (0 %) -Wound Margin Flat & Intact -Granulation Amt None Present (0 %) -Slough/Fibrin Yes -Necrosis Amt Large (67-100%) -Necrotic Tissue Type Adherent Slough -Structure Exposed N/A -Texture (Mechelle-wound Skin Appearance) Assessed Localized Edema -Moisture (Mechelle-wound Skin Appearance Assessed ) Dry/Scaly -Color (Mechelle-wound Skin Appearance) Assessed -Temperature (Mechelle-wound Skin No Abnormality Appearance) (Pt Warm) -Tenderness on Palpation (Mechelle-wound No Skin Appearance) -Ulcer Cleansing Rinsed/ Irrigated with Saline -Foul Odor after Cleansing No -Anesthetic Used 4% Lidocaine Solution #4 R HEEL -Combined with other wound No -Current Size (cm) - Length 0.1 -Current Size (cm) - Width 0.1 -Current Size (cm) - Depth 0.1 -Total Square Cm 0.01 -Photo Taken No -Epithelialization Small 1-33% -Tunneling No -Undermining/Tunneling No -Circular Undermining No -Exudate Amt None Present (0 %) -Wound Margin Flat & Intact -Granulation Amt None Present (0 %) -Granulation Quality Pale -Necrosis Amt Large (67-100%) -Structure Exposed N/A -Texture (Mechelle-wound Skin Appearance) Assessed Callus -Moisture (Mechelle-wound Skin Appearance Assessed ) Dry/Scaly -Color (Mechelle-wound Skin Appearance) Assessed -Temperature (Mechelle-wound Skin No Abnormality Appearance) (Pt Warm) -Tenderness on Palpation (Mechelle-wound No Skin Appearance) -Ulcer Cleansing Rinsed/ Irrigated with Saline -Foul Odor after Cleansing No -Anesthetic Used 4% Lidocaine Solution #3 R 4TH METATARSAL -Combined with other wound No -Current Size (cm) - Length 0.2 -Current Size (cm) - Width 0.1 -Current Size (cm) - Depth 0.1 -Total Square Cm 0.02 -Photo Taken No -Epithelialization Small 1-33% -Tunneling No -Undermining/Tunneling No -Circular Undermining No -Exudate Amt Small (1-33%) -Exudate Type Serosanguineous -Wound Margin Flat & Intact -Granulation Amt Large (67-100%) -Granulation Quality Pale -Slough/Fibrin Yes -Necrosis Amt Small (1-33%) -Necrotic Tissue Type Adherent Slough -Structure Exposed N/A -Texture (Mechelle-wound Skin Appearance) Assessed Callus -Moisture (Mechelle-wound Skin Appearance Assessed ) Dry/Scaly -Color (Mechelle-wound Skin Appearance) Assessed -Temperature (Mechelle-wound Skin No Abnormality Appearance) (Pt Warm) -Tenderness on Palpation (Mechelle-wound No Skin Appearance) -Ulcer Cleansing Rinsed/ Irrigated with Saline -Foul Odor after Cleansing No -Anesthetic Used 4% Lidocaine Solution #2 L HEEL -Combined with other wound No -Current Size (cm) - Length 0.1 -Current Size (cm) - Width 1.8 -Current Size (cm) - Depth 0.1 -Total Square Cm 0.18 -Photo Taken No -Epithelialization Medium 34-66% -Tunneling No -Undermining/Tunneling No -Circular Undermining No -Exudate Amt Small (1-33%) -Exudate Type Serosanguineous -Wound Margin Flat & Intact -Granulation Amt Large (67-100%) -Granulation Quality Pale -Slough/Fibrin Yes -Necrosis Amt Small (1-33%) -Necrotic Tissue Type Adherent Slough -Structure Exposed N/A -Texture (Mechelle-wound Skin Appearance) Assessed Callus -Moisture (Mechelle-wound Skin Appearance Assessed ) Dry/Scaly -Color (Mechelle-wound Skin Appearance) Assessed -Temperature (Mechelle-wound Skin No Abnormality Appearance) (Pt Warm) -Tenderness on Palpation (Mechelle-wound No Skin Appearance) -Ulcer Cleansing Rinsed/ Irrigated with Saline -Foul Odor after Cleansing No -Anesthetic Used 4% Lidocaine Solution #1 L LAT FOOT -Combined with other wound No -Current Size (cm) - Length 0.2 -Current Size (cm) - Width 0.9 -Current Size (cm) - Depth 0.1 -Total Square Cm 0.18 -Photo Taken No -Epithelialization Small 1-33% -Tunneling No -Undermining/Tunneling No -Circular Undermining No -Exudate Amt Small (1-33%) -Exudate Type Serosanguineous -Wound Margin Flat & Intact -Granulation Amt Medium (34-66%) -Granulation Quality Pale [place] -Slough/Fibrin Yes -Necrosis Amt Small (1-33%) -Necrotic Tissue Type Adherent Slough -Structure Exposed N/A -Texture (Mechelle-wound Skin Appearance) Assessed Callus -Moisture (Mechelle-wound Skin Appearance Assessed ) Dry/Scaly -Color (Mechelle-wound Skin Appearance) Assessed -Temperature (Mechelle-wound Skin No Abnormality Appearance) (Pt Warm) -Tenderness on Palpation (Mechelle-wound No Skin Appearance) -Ulcer Cleansing Rinsed/ Irrigated with Saline -Foul Odor after Cleansing No -Anesthetic Used 4% Lidocaine Solution [Edema Assessment] -Lower Limb Edema Present NA WC - Nurse 2 - General Ulcer CM Notes Start: 12/28/17 13:13 Freq: Status: Active Protocol: Activity Type Activity Date Activity User E-Sign Co-Sign Detail Recorded Client Recorded Date Recorded By Document 01/04/18 11:32 TM [id number] 01/04/18 11:37 TM Document 01/04/18 12:33 DV [id number] 01/04/18 12:42 DV 01/04/18 01/04/18 11:32 12:33 Wound Center Nurse 2 [Procedure/Treatment] 7-RIGHT RING FINGER -Time 12:33 -Correct Patient Yes -Correct Side, Site, Position Yes -Correct Procedure Yes -Procedure Performed Yes -Type of Procedure Debridement -Clinical Debridement Subcutaneous -Post Debridement Size (cm) - Length 0.4 -Post Debridement Size (cm) - Width 1.5 -Post Debridement Size (cm) - Depth 0.2 -Total Square Cm 0.60 -Wound/Ulcer Outcome Not Healed -Ulcer Cleansing Rinsed/ Irrigated with Saline -Foul Odor after Cleansing No -Bioengineered Tissue No -Bleeding Controlled with Pressure -Treatment Response Procedure Tolerated Well 6-RIGHT MIDDLE FINGER -Time 12:34 -Correct Patient Yes -Correct Side, Site, Position Yes -Correct Procedure Yes -Procedure Performed Yes -Type of Procedure Debridement -Clinical Debridement Subcutaneous -Post Debridement Size (cm) - Length 0.3 -Post Debridement Size (cm) - Width 0.9 -Post Debridement Size (cm) - Depth 0.2 -Total Square Cm 0.27 -Wound/Ulcer Outcome Not Healed -Ulcer Cleansing Rinsed/ Irrigated with Saline -Foul Odor after Cleansing No -Bioengineered Tissue No -Bleeding Controlled with Pressure -Treatment Response Procedure Tolerated Well 5-RIGHT INDEX FINGER -Time 12:34 -Correct Patient Yes -Correct Side, Site, Position Yes -Correct Procedure Yes -Procedure Performed Yes -Type of Procedure Debridement -Clinical Debridement Subcutaneous -Post Debridement Size (cm) - Length 0.8 -Post Debridement Size (cm) - Width 0.7 -Post Debridement Size (cm) - Depth 0.1 -Total Square Cm 0.56 -Wound/Ulcer Outcome Not Healed -Ulcer Cleansing Rinsed/ Irrigated with Saline -Foul Odor after Cleansing No -Bioengineered Tissue No -Bleeding Controlled with Pressure -Treatment Response Procedure Tolerated Well #4 R HEEL -Time 11:32 -Correct Patient Yes -Correct Side, Site, Position Yes -Correct Procedure Yes -Procedure Performed Yes -Post Debridement Size (cm) - Length 0 -Post Debridement Size (cm) - Width 0 -Post Debridement Size (cm) - Depth 0 -Total Square Cm 0 -Wound/Ulcer Outcome Healed- Epithelialized -Ulcer Cleansing Rinsed/ Irrigated with Saline -Foul Odor after Cleansing No -Bioengineered Tissue No -Topical Lidocaine (%) 4 -Bleeding Controlled with NA -Treatment Response Procedure Tolerated Well #3 R 4TH METATARSAL -Time 11:33 -Correct Patient Yes -Correct Side, Site, Position Yes -Correct Procedure Yes -Procedure Performed Yes -Type of Procedure Debridement -Clinical Debridement Subcutaneous -Post Debridement Size (cm) - Length 0.3 -Post Debridement Size (cm) - Width 0.2 -Post Debridement Size (cm) - Depth 0.1 -Total Square Cm 0.06 -Wound/Ulcer Outcome Not Healed -Ulcer Cleansing Rinsed/ Irrigated with Saline -Foul Odor after Cleansing No -Bioengineered Tissue Yes -Type of bioengineered Tissue EPIFIX -Expiration Date 10/17/22 -Product Lot Number [id number] -Percent Used 33 -Topical Lidocaine (%) 4 -Bleeding Controlled with Pressure -Treatment Response Procedure Tolerated Well #2 L HEEL -Time 11:34 -Correct Patient Yes -Correct Side, Site, Position Yes -Correct Procedure Yes -Procedure Performed Yes -Type of Procedure Debridement -Clinical Debridement Subcutaneous -Post Debridement Size (cm) - Length 0.2 -Post Debridement Size (cm) - Width 1.9 -Post Debridement Size (cm) - Depth 0.1 -Total Square Cm 0.38 -Wound/Ulcer Outcome Not Healed -Ulcer Cleansing Rinsed/ Irrigated with Saline -Foul Odor after Cleansing No -Bioengineered Tissue Yes -Type of bioengineered Tissue EPIFIX -Expiration Date 10/17/22 -Product Lot Number [id number] -Percent Used 33 -Topical Lidocaine (%) 4 -Bleeding Controlled with Pressure -Treatment Response Procedure Tolerated Well #1 L LAT FOOT -Time 11:35 -Correct Patient Yes -Correct Side, Site, Position Yes -Correct Procedure Yes -Procedure Performed Yes -Type of Procedure Debridement -Clinical Debridement Subcutaneous -Post Debridement Size (cm) - Length 0.3 -Post Debridement Size (cm) - Width 1.0 -Post Debridement Size (cm) - Depth 0.1 -Total Square Cm 0.30 -Wound/Ulcer Outcome Not Healed -Ulcer Cleansing Rinsed/ Irrigated with Saline -Foul Odor after Cleansing No -Bioengineered Tissue Yes -Type of bioengineered Tissue EPIFIX -Expiration Date 10/17/22 -Product Lot Number [id number] -Percent Used 33 -Topical Lidocaine (%) 4 -Bleeding Controlled with Pressure -Treatment Response Procedure Tolerated Well [See Physician Procedure note for Specifics] Pain Scale: 0-10 Numeric [Pain] -Is Patient Pain Free? Yes Musculoskeletal: No Tenderness to Palpation of Joints or Extremities, Muscle Wasting, Tenderness - dorsal contraction of lesser digits and prominent metatarsal heads bilateral, - - Amputation status noted Neurological: - - lack of epicritic sensation light touch bilateral consistent with neuropathy Psych/Mental Status: Normal Affect, Appropriate Debridement Note Post-Debridement Measurements/Treatment WC - Nurse 2 - General Ulcer CM Notes Start: 12/28/17 13:13 Freq: Status: Active Protocol: Activity Type Activity Date Activity User E-Sign Co-Sign Detail Recorded Client Recorded Date Recorded By Document 12/28/17 14:03 [id number] 12/28/17 14:22 TM Document 01/04/18 11:32 TM [id number] 01/04/18 11:37 TM Document 01/04/18 12:33 [id number] 01/04/18 12:42 12/28/17 01/04/18 01/04/18 14:03 11:32 12:33 Wound Center Nurse 2 7-RIGHT RING FINGER -Time 12:33 -Correct Patient Yes -Correct Side, Site, Position Yes -Correct Procedure Yes -Procedure Performed Yes -Type of Procedure Debridement -Clinical Debridement Subcutaneous -Post Debridement Size (cm) - Length 0.4 -Post Debridement Size (cm) - Width 1.5 -Post Debridement Size (cm) - Depth 0.2 -Total Square Cm 0.60 -Wound/Ulcer Outcome Not Healed -Ulcer Cleansing Rinsed/ Irrigated with Saline -Foul Odor after Cleansing No -Bioengineered Tissue No -Bleeding Controlled with Pressure -Treatment Response Procedure Tolerated Well 6-RIGHT MIDDLE FINGER -Time 12:34 -Correct Patient Yes -Correct Side, Site, Position Yes -Correct Procedure Yes -Procedure Performed Yes -Type of Procedure Debridement -Clinical Debridement Subcutaneous -Post Debridement Size (cm) - Length 0.3 -Post Debridement Size (cm) - Width 0.9 -Post Debridement Size (cm) - Depth 0.2 -Total Square Cm 0.27 -Wound/Ulcer Outcome Not Healed -Ulcer Cleansing Rinsed/ Irrigated with Saline -Foul Odor after Cleansing No -Bioengineered Tissue No -Bleeding Controlled with Pressure -Treatment Response Procedure Tolerated Well 5-RIGHT INDEX FINGER -Time 12:34 -Correct Patient Yes -Correct Side, Site, Position Yes -Correct Procedure Yes -Procedure Performed Yes -Type of Procedure Debridement -Clinical Debridement Subcutaneous -Post Debridement Size (cm) - Length 0.8 -Post Debridement Size (cm) - Width 0.7 -Post Debridement Size (cm) - Depth 0.1 -Total Square Cm 0.56 -Wound/Ulcer Outcome Not Healed -Ulcer Cleansing Rinsed/ Irrigated with Saline -Foul Odor after Cleansing No -Bioengineered Tissue No -Bleeding Controlled with Pressure -Treatment Response Procedure Tolerated Well #4 R HEEL -Time 14:09 11:32 -Correct Patient Yes Yes -Correct Side, Site, Position Yes Yes -Correct Procedure Yes Yes -Procedure Performed Yes Yes -Type of Procedure Debridement -Clinical Debridement Subcutaneous -Post Debridement Size (cm) - Length 0.6 0 -Post Debridement Size (cm) - Width 0.2 0 -Post Debridement Size (cm) - Depth 0.1 0 -Total Square Cm 0.12 0 -Wound/Ulcer Outcome Not Healed Healed- Epithelialized -Ulcer Cleansing Rinsed/ Rinsed/ Irrigated with Irrigated with Saline Saline -Foul Odor after Cleansing No No -Bioengineered Tissue No No -Topical Lidocaine (%) 4 4 -Bleeding Controlled with Pressure NA -Treatment Response Procedure Procedure Tolerated Well Tolerated Well #3 R 4TH METATARSAL -Time 14:09 11:33 -Correct Patient Yes Yes -Correct Side, Site, Position Yes Yes -Correct Procedure Yes Yes -Procedure Performed Yes Yes -Type of Procedure Debridement Debridement -Clinical Debridement Subcutaneous Subcutaneous -Post Debridement Size (cm) - Length 0.5 0.3 -Post Debridement Size (cm) - Width 0.2 0.2 -Post Debridement Size (cm) - Depth 0.1 0.1 -Total Square Cm 0.10 0.06 -Wound/Ulcer Outcome Not Healed Not Healed -Ulcer Cleansing Rinsed/ Rinsed/ Irrigated with Irrigated with Saline Saline -Foul Odor after Cleansing No No -Bioengineered Tissue No Yes -Type of bioengineered Tissue EPIFIX -Expiration Date 10/17/22 -Product Lot Number [id number] -Percent Used 33 -Topical Lidocaine (%) 4 4 -Bleeding Controlled with Pressure Pressure -Treatment Response Procedure Procedure Tolerated Well Tolerated Well #2 L HEEL -Time 14:09 11:34 -Correct Patient Yes Yes -Correct Side, Site, Position Yes Yes -Correct Procedure Yes Yes -Procedure Performed Yes Yes -Type of Procedure Debridement Debridement -Clinical Debridement Subcutaneous Subcutaneous -Post Debridement Size (cm) - Length 1.1 0.2 -Post Debridement Size (cm) - Width 0.2 1.9 -Post Debridement Size (cm) - Depth 0.2 0.1 -Total Square Cm 0.22 0.38 -Wound/Ulcer Outcome Not Healed Not Healed -Ulcer Cleansing Rinsed/ Rinsed/ Irrigated with Irrigated with Saline Saline -Foul Odor after Cleansing No No -Bioengineered Tissue No Yes -Type of bioengineered Tissue EPIFIX -Expiration Date 10/17/22 -Product Lot Number [id number] -Percent Used 33 -Topical Lidocaine (%) 4 4 -Bleeding Controlled with Pressure Pressure -Treatment Response Procedure Procedure Tolerated Well Tolerated Well #1 L LAT FOOT -Time 14:10 11:35 -Correct Patient Yes Yes -Correct Side, Site, Position Yes Yes -Correct Procedure Yes Yes -Procedure Performed Yes Yes -Type of Procedure Debridement Debridement -Clinical Debridement Subcutaneous Subcutaneous -Post Debridement Size (cm) - Length 0.3 0.3 -Post Debridement Size (cm) - Width 1.3 1.0 -Post Debridement Size (cm) - Depth 0.2 0.1 -Total Square Cm 0.39 0.30 -Wound/Ulcer Outcome Not Healed Not Healed -Ulcer Cleansing Rinsed/ Rinsed/ Irrigated with Irrigated with Saline Saline -Foul Odor after Cleansing No No -Bioengineered Tissue No Yes -Type of bioengineered Tissue EPIFIX -Expiration Date 10/17/22 -Product Lot Number [id number] -Percent Used 33 -Topical Lidocaine (%) 4 4 -Bleeding Controlled with Pressure Pressure -Treatment Response Procedure Procedure Tolerated Well Tolerated Well Pain Scale: 0-10 Numeric Is Patient Pain Free? Yes Yes Wound debrided: sub 4 metatarsal head sulcus Laterality: Right Wound Grade/Stage: grade 1 Type of Debridement: Excisional debridement Anesthesia Used: 4% Lidocaine Solution Depth: in the subcutaneous layer Percentage of wound debrided: 100 Instrument Used: #15 blade Tissue Removed: fibrous, devitalized subcutaneous, biofilm, slough Severity: Fat Layer Exposed Amount of bleeding with debridement: Mild Bleeding Controlled with: Pressure Patient tolerated procedure well - Additional Wound Wound debrided: plantar lateral forefoot Laterality: Left Wound Grade/Stage: grade 1 Type of Debridement: Excisional debridement Anesthesia Used: 4% Lidocaine Solution Depth: in the subcutaneous layer Percentage of wound debrided: 100 Instrument Used: #15 blade Tissue Removed: fibrous, devitalized subcutaneous, biofilm, slough Severity: Fat Layer Exposed Amount of bleeding with debridement: Mild Bleeding Controlled with: Pressure Patient tolerated procedure: Patient tolerated procedure well Assessment/Plan Active Problems (Last Reviewed 11/01/17 @ 16:03 by Wilmer Cartwright) Other specified peripheral vascular diseases (Chronic) Ulcer of right foot with fat layer exposed (Chronic) Chronic ulcer of left foot with fat layer exposed (Chronic) Xerosis of skin (Chronic) Non-compliance (Chronic) Assessment: Right heel ulcer healed. left heel ulcers with fat exposed. Right sub-fourth metatarsal head ulcer with fat exposed. Left sub-fifth metatarsal head ulcer with fat exposed. Diabetes with neuropathy. Xerosis. Hammertoes bilateral. Noncompliance. Finger ulcers right hand 1,2,3 (sees Dr. Vance) Plan: I reviewed and discussed his care plan today. Subcutaneous ulceration debridement was performed as noted in the clinical panel. He was reassured there are no signs of infection. He is approved for application of advanced wound care product, epi fix. Verbal consent was obtained and he understands the indications, application process, and anticipated healing time and management. The product was applied to the 3 wound sites according to standard protocol and he tolerated as well. This was secured in place with a wound veil and Steri-Strips. He was advised to keep this clean, dry, and intact until follow-up next week. I provided him with a prescription for bilateral shower bags. To continue with strict offloading with surgical shoes. He already has these devices and compliance was discussed. To moisturize the adjacent skin to improve skin integrity to his hands and feet. Updated labs and x-rays were ordered. The following diagnostic data was reviewed: (labs 11/02/2017) Hemoglobin A1c 6.3%, total protein 7.2, albumin 3.7, creatinine 0.97, white blood cell count 10.25, platelet 345. His last progress note from Dr. Avery Escalante was also reviewed from November 01, 2017 in which it was noted he does also have a diagnosis of raynauds disease noted to the fingers and rest less leg syndrome amongst treatment of his other aformentioned chronic comorbidities. He understands he is at risk for continued infection development , delayed healing. He has nonhealing wounds to his hands and would like to seek intervention. Dr. Vance will see him today for this condition and intervention is greatly appreciated. To maintain and improve diabetic control and nutritional supplementation to optimize healing. A prescription for Gregg was provided. To return to clinic in one week or call sooner if problems or concerns. Answered all his questions.
--- NOTE | 2018-01-04 19:00 | PCM.WC.HP ---
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 (3) Diabetes mellitus type 2 with complications Status: Chronic Current Visit: No Code(s): E11.8 - Type 2 diabetes mellitus with unspecified complications History of Present Illness Date of Service: 01/04/18 Chief Complaint: Ulcers of right index, middle and ring finger. History of Wound: Mr. Espinoza is a 57yo with PMH of Diabetes currently seeing Dr Aparicio for lower extremity ulcers. I was asked to see him for chronic ulcers of his right index, middle and ring fingers. He is a [place] and has chronic upper extremity callus and has had ulcers which have typically healed well however, current episodes of his right middle and ring fingers have persisted despite management with neosporin application. There is no significant callous of his right index finger however, he noted the ulcer sometime in September after he had been in 0 degree weather with exposed hands for a long time. He reports pain in that digit but denies any discharge from the site. He has also been applying Neosporin without any significant improvement. 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 Diabetes mellitus type 2 with complications (Chronic) Hypertension (Chronic) Neuropathy (Chronic) Most likely severe diabetic neuropathy [facility]up [facility] Cerebrovascular disease (Chronic) Right thalamic stroke Surgical History: - - Toe amputations RLE Allergies/Adverse Reactions: Allergies atorvastatin Adverse Reaction (Verified 12/28/17 13:47) Unknown metformin Adverse Reaction (Verified 12/28/17 13:47) Diarrhea Home Medications: Ambulatory Orders Medication Instructions Recorded Lisinopril [Zestril] 5 mg PO DAILY #30 tablet 10/08/13 Gabapentin [Neurontin] 600 mg PO TIDCM 11/07/14 Tizanidine HCl [Zanaflex] 4 mg PO DAILY 11/07/14 Cetirizine HCl [Zyrtec] 10 mg PO DAILY #1 tablet 11/09/14 Ammonium Lactate [Amlactin] 57 gm TP PRN PRN 10/04/17 Baclofen 60 mg PO DAILY 10/04/17 Celecoxib [Celebrex] 200 mg PO DAILY 10/04/17 Cholecalciferol (Vitamin D3) 5,000 unit PO DAILY 10/04/17 [Vitamin D3] Cyanocobalamin [Vitamin B12] 1,000 mcg IM Q30D 10/04/17 Insulin Glargine [Lantus SoloStar 15 units SC QHS 10/04/17 Pen] Insulin Lispro [Humalog] 12 - 20 unit SC ACHS 10/04/17 Levomefolate/B6/B12/Algal Oil 1 each PO DAILY 10/04/17 [Metanx Capsule] Nortriptyline HCl 50 mg PO QHS 10/04/17 TraMADol [Ultram] 50 mg PO Q4H PRN PRN 10/04/17 Aspirin 325 mg PO DAILY@0800 10/21/17 - Family History Maternal Family History: Family History (Last Reviewed 11/01/17 @ 16:03 by Wilmer Cartwright) Other Arthritis Hypertension Diabetes Paternal Family History: Family History (Last Reviewed 11/01/17 @ 16:03 by Wilmer Cartwright) Other Arthritis Hypertension Diabetes Smoking Status: Never smoker Review of Systems Constitutional: Denies: Anorexia, Chills, Fever Eyes: Denies: Pain, Redness HEENT: Denies: Difficulty Hearing, Difficulty Swallowing Cardiovascular: Denies: Chest Pain, Heaviness Respiratory: Denies: Cough, Hemoptysis Gastrointestinal: Denies: Abdominal Pain, Hematemesis, Vomiting Skin: Denies: Dryness, Jaundice - Physical Exam Vital Signs Temp Pulse Resp BP 98.4 F 98 16 153/83 H 01/04/18 10:51 01/04/18 10:51 01/04/18 10:51 01/04/18 10:51 General: Alert, Oriented x3, Cooperative, No apparent distress HEENT: Atraumatic, Normocephalic Oral: Moist Mucosa Neck: Supple, No Nuchal Rigidity Lungs: Normal air movement Cardiovascular: Regular rate Abdomen: Soft, Non Tender Extremities: No cyanosis Wound Measurements and Assessment WC - Nurse 1 - General Ulcer Measurement Start: 12/28/17 13:13 Freq: Status: Active Protocol: Activity Type Activity Date Activity User E-Sign Co-Sign Detail Recorded Client Recorded Date Recorded By Document 01/04/18 10:51 [id number] 01/04/18 11:07 MARJORIE 01/04/18 10:51 Wound Center Nurse 1 [Ulcer Assessment] 7-RIGHT RING FINGER -Combined with other wound No -Current Size (cm) - Length 0.2 -Current Size (cm) - Width 1.4 -Current Size (cm) - Depth 0.2 -Total Square Cm 0.28 -Photo Taken Yes -Epithelialization None Present -Tunneling No -Undermining/Tunneling No -Circular Undermining No -Classification - Thickness Full Thickness without Exposed Support Structure -Exudate Amt None Present (0 %) -Wound Margin Flat & Intact -Granulation Amt Large (67-100%) -Granulation Quality Red -Slough/Fibrin Yes -Necrosis Amt Small (1-33%) -Necrotic Tissue Type Adherent Slough -Structure Exposed N/A -Texture (Mechelle-wound Skin Appearance) Assessed Callus Localized Edema -Moisture (Mechelle-wound Skin Appearance Assessed ) Dry/Scaly -Color (Mechelle-wound Skin Appearance) Assessed -Temperature (Mechelle-wound Skin No Abnormality Appearance) (Pt Warm) -Tenderness on Palpation (Mechelle-wound No Skin Appearance) -Ulcer Cleansing Rinsed/ Irrigated with Saline -Foul Odor after Cleansing No -Anesthetic Used 4% Lidocaine Solution 6-RIGHT MIDDLE FINGER -Combined with other wound No -Current Size (cm) - Length 0.1 -Current Size (cm) - Width 0.8 -Current Size (cm) - Depth 0.2 -Total Square Cm 0.08 -Photo Taken Yes -Epithelialization Medium 34-66% -Tunneling No -Undermining/Tunneling No -Circular Undermining No -Classification - Thickness Full Thickness without Exposed Support Structure -Exudate Amt None Present (0 %) -Wound Margin Flat & Intact -Granulation Amt Medium (34-66%) -Granulation Quality Red -Slough/Fibrin Yes -Necrosis Amt Small (1-33%) -Necrotic Tissue Type Adherent Slough -Structure Exposed N/A -Texture (Mechelle-wound Skin Appearance) Assessed Callus -Moisture (Mechelle-wound Skin Appearance Assessed ) Dry/Scaly -Color (Mechelle-wound Skin Appearance) Assessed -Temperature (Mechelle-wound Skin No Abnormality Appearance) (Pt Warm) -Tenderness on Palpation (Mechelle-wound No Skin Appearance) -Ulcer Cleansing Rinsed/ Irrigated with Saline -Foul Odor after Cleansing No -Anesthetic Used 4% Lidocaine Solution 5-RIGHT INDEX FINGER -Combined with other wound No -Current Size (cm) - Length 0.5 -Current Size (cm) - Width 0.6 -Current Size (cm) - Depth 0.1 -Total Square Cm 0.30 -Photo Taken Yes -Epithelialization None Present -Tunneling No -Undermining/Tunneling No -Circular Undermining No -Classification - Thickness Unclassifiable (Eschar Covered ) -Exudate Amt None Present (0 %) -Wound Margin Flat & Intact -Granulation Amt None Present (0 %) -Slough/Fibrin Yes -Necrosis Amt Large (67-100%) -Necrotic Tissue Type Adherent Slough -Structure Exposed N/A -Texture (Mechelle-wound Skin Appearance) Assessed Localized Edema -Moisture (Mechelle-wound Skin Appearance Assessed ) Dry/Scaly -Color (Mechelle-wound Skin Appearance) Assessed -Temperature (Mechelle-wound Skin No Abnormality Appearance) (Pt Warm) -Tenderness on Palpation (Mechelle-wound No Skin Appearance) -Ulcer Cleansing Rinsed/ Irrigated with Saline -Foul Odor after Cleansing No -Anesthetic Used 4% Lidocaine Solution #4 R HEEL -Combined with other wound No -Current Size (cm) - Length 0.1 -Current Size (cm) - Width 0.1 -Current Size (cm) - Depth 0.1 -Total Square Cm 0.01 -Photo Taken No -Epithelialization Small 1-33% -Tunneling No -Undermining/Tunneling No -Circular Undermining No -Exudate Amt None Present (0 %) -Wound Margin Flat & Intact -Granulation Amt None Present (0 %) -Granulation Quality Pale -Necrosis Amt Large (67-100%) -Structure Exposed N/A -Texture (Mechelle-wound Skin Appearance) Assessed Callus -Moisture (Mechelle-wound Skin Appearance Assessed ) Dry/Scaly -Color (Mechelle-wound Skin Appearance) Assessed -Temperature (Mechelle-wound Skin No Abnormality Appearance) (Pt Warm) -Tenderness on Palpation (Mechelle-wound No Skin Appearance) -Ulcer Cleansing Rinsed/ Irrigated with Saline -Foul Odor after Cleansing No -Anesthetic Used 4% Lidocaine Solution #3 R 4TH METATARSAL -Combined with other wound No -Current Size (cm) - Length 0.2 -Current Size (cm) - Width 0.1 -Current Size (cm) - Depth 0.1 -Total Square Cm 0.02 -Photo Taken No -Epithelialization Small 1-33% -Tunneling No -Undermining/Tunneling No -Circular Undermining No -Exudate Amt Small (1-33%) -Exudate Type Serosanguineous -Wound Margin Flat & Intact -Granulation Amt Large (67-100%) -Granulation Quality Pale -Slough/Fibrin Yes -Necrosis Amt Small (1-33%) -Necrotic Tissue Type Adherent Slough -Structure Exposed N/A -Texture (Mechelle-wound Skin Appearance) Assessed Callus -Moisture (Mechelle-wound Skin Appearance Assessed ) Dry/Scaly -Color (Mechelle-wound Skin Appearance) Assessed -Temperature (Mechelle-wound Skin No Abnormality Appearance) (Pt Warm) -Tenderness on Palpation (Mechelle-wound No Skin Appearance) -Ulcer Cleansing Rinsed/ Irrigated with Saline -Foul Odor after Cleansing No -Anesthetic Used 4% Lidocaine Solution #2 L HEEL -Combined with other wound No -Current Size (cm) - Length 0.1 -Current Size (cm) - Width 1.8 -Current Size (cm) - Depth 0.1 -Total Square Cm 0.18 -Photo Taken No -Epithelialization Medium 34-66% -Tunneling No -Undermining/Tunneling No -Circular Undermining No -Exudate Amt Small (1-33%) -Exudate Type Serosanguineous -Wound Margin Flat & Intact -Granulation Amt Large (67-100%) -Granulation Quality Pale -Slough/Fibrin Yes -Necrosis Amt Small (1-33%) -Necrotic Tissue Type Adherent Slough -Structure Exposed N/A -Texture (Mechelle-wound Skin Appearance) Assessed Callus -Moisture (Mechelle-wound Skin Appearance Assessed ) Dry/Scaly -Color (Mechelle-wound Skin Appearance) Assessed -Temperature (Mechelle-wound Skin No Abnormality Appearance) (Pt Warm) -Tenderness on Palpation (Mechelle-wound No Skin Appearance) -Ulcer Cleansing Rinsed/ Irrigated with Saline -Foul Odor after Cleansing No -Anesthetic Used 4% Lidocaine Solution #1 L LAT FOOT -Combined with other wound No -Current Size (cm) - Length 0.2 -Current Size (cm) - Width 0.9 -Current Size (cm) - Depth 0.1 -Total Square Cm 0.18 -Photo Taken No -Epithelialization Small 1-33% -Tunneling No -Undermining/Tunneling No -Circular Undermining No -Exudate Amt Small (1-33%) -Exudate Type Serosanguineous -Wound Margin Flat & Intact -Granulation Amt Medium (34-66%) -Granulation Quality Pale [place] -Slough/Fibrin Yes -Necrosis Amt Small (1-33%) -Necrotic Tissue Type Adherent Slough -Structure Exposed N/A -Texture (Mechelle-wound Skin Appearance) Assessed Callus -Moisture (Mechelle-wound Skin Appearance Assessed ) Dry/Scaly -Color (Mechelle-wound Skin Appearance) Assessed -Temperature (Mechelle-wound Skin No Abnormality Appearance) (Pt Warm) -Tenderness on Palpation (Mechelle-wound No Skin Appearance) -Ulcer Cleansing Rinsed/ Irrigated with Saline -Foul Odor after Cleansing No -Anesthetic Used 4% Lidocaine Solution [Edema Assessment] -Lower Limb Edema Present NA WC - Nurse 2 - General Ulcer CM Notes Start: 12/28/17 13:13 Freq: Status: Active Protocol: Activity Type Activity Date Activity User E-Sign Co-Sign Detail Recorded Client Recorded Date Recorded By Document 01/04/18 11:32 TM [id number] 01/04/18 11:37 TM Document 01/04/18 12:33 DV [id number] 01/04/18 12:42 DV 01/04/18 01/04/18 11:32 12:33 Wound Center Nurse 2 [Procedure/Treatment] 7-RIGHT RING FINGER -Time 12:33 -Correct Patient Yes -Correct Side, Site, Position Yes -Correct Procedure Yes -Procedure Performed Yes -Type of Procedure Debridement -Clinical Debridement Subcutaneous -Post Debridement Size (cm) - Length 0.4 -Post Debridement Size (cm) - Width 1.5 -Post Debridement Size (cm) - Depth 0.2 -Total Square Cm 0.60 -Wound/Ulcer Outcome Not Healed -Ulcer Cleansing Rinsed/ Irrigated with Saline -Foul Odor after Cleansing No -Bioengineered Tissue No -Bleeding Controlled with Pressure -Treatment Response Procedure Tolerated Well 6-RIGHT MIDDLE FINGER -Time 12:34 -Correct Patient Yes -Correct Side, Site, Position Yes -Correct Procedure Yes -Procedure Performed Yes -Type of Procedure Debridement -Clinical Debridement Subcutaneous -Post Debridement Size (cm) - Length 0.3 -Post Debridement Size (cm) - Width 0.9 -Post Debridement Size (cm) - Depth 0.2 -Total Square Cm 0.27 -Wound/Ulcer Outcome Not Healed -Ulcer Cleansing Rinsed/ Irrigated with Saline -Foul Odor after Cleansing No -Bioengineered Tissue No -Bleeding Controlled with Pressure -Treatment Response Procedure Tolerated Well 5-RIGHT INDEX FINGER -Time 12:34 -Correct Patient Yes -Correct Side, Site, Position Yes -Correct Procedure Yes -Procedure Performed Yes -Type of Procedure Debridement -Clinical Debridement Subcutaneous -Post Debridement Size (cm) - Length 0.8 -Post Debridement Size (cm) - Width 0.7 -Post Debridement Size (cm) - Depth 0.1 -Total Square Cm 0.56 -Wound/Ulcer Outcome Not Healed -Ulcer Cleansing Rinsed/ Irrigated with Saline -Foul Odor after Cleansing No -Bioengineered Tissue No -Bleeding Controlled with Pressure -Treatment Response Procedure Tolerated Well #4 R HEEL -Time 11:32 -Correct Patient Yes -Correct Side, Site, Position Yes -Correct Procedure Yes -Procedure Performed Yes -Post Debridement Size (cm) - Length 0 -Post Debridement Size (cm) - Width 0 -Post Debridement Size (cm) - Depth 0 -Total Square Cm 0 -Wound/Ulcer Outcome Healed- Epithelialized -Ulcer Cleansing Rinsed/ Irrigated with Saline -Foul Odor after Cleansing No -Bioengineered Tissue No -Topical Lidocaine (%) 4 -Bleeding Controlled with NA -Treatment Response Procedure Tolerated Well #3 R 4TH METATARSAL -Time 11:33 -Correct Patient Yes -Correct Side, Site, Position Yes -Correct Procedure Yes -Procedure Performed Yes -Type of Procedure Debridement -Clinical Debridement Subcutaneous -Post Debridement Size (cm) - Length 0.3 -Post Debridement Size (cm) - Width 0.2 -Post Debridement Size (cm) - Depth 0.1 -Total Square Cm 0.06 -Wound/Ulcer Outcome Not Healed -Ulcer Cleansing Rinsed/ Irrigated with Saline -Foul Odor after Cleansing No -Bioengineered Tissue Yes -Type of bioengineered Tissue EPIFIX -Expiration Date 10/17/22 -Product Lot Number [id number] -Percent Used 33 -Topical Lidocaine (%) 4 -Bleeding Controlled with Pressure -Treatment Response Procedure Tolerated Well #2 L HEEL -Time 11:34 -Correct Patient Yes -Correct Side, Site, Position Yes -Correct Procedure Yes -Procedure Performed Yes -Type of Procedure Debridement -Clinical Debridement Subcutaneous -Post Debridement Size (cm) - Length 0.2 -Post Debridement Size (cm) - Width 1.9 -Post Debridement Size (cm) - Depth 0.1 -Total Square Cm 0.38 -Wound/Ulcer Outcome Not Healed -Ulcer Cleansing Rinsed/ Irrigated with Saline -Foul Odor after Cleansing No -Bioengineered Tissue Yes -Type of bioengineered Tissue EPIFIX -Expiration Date 10/17/22 -Product Lot Number [id number] -Percent Used 33 -Topical Lidocaine (%) 4 -Bleeding Controlled with Pressure -Treatment Response Procedure Tolerated Well #1 L LAT FOOT -Time 11:35 -Correct Patient Yes -Correct Side, Site, Position Yes -Correct Procedure Yes -Procedure Performed Yes -Type of Procedure Debridement -Clinical Debridement Subcutaneous -Post Debridement Size (cm) - Length 0.3 -Post Debridement Size (cm) - Width 1.0 -Post Debridement Size (cm) - Depth 0.1 -Total Square Cm 0.30 -Wound/Ulcer Outcome Not Healed -Ulcer Cleansing Rinsed/ Irrigated with Saline -Foul Odor after Cleansing No -Bioengineered Tissue Yes -Type of bioengineered Tissue EPIFIX -Expiration Date 10/17/22 -Product Lot Number [id number] -Percent Used 33 -Topical Lidocaine (%) 4 -Bleeding Controlled with Pressure -Treatment Response Procedure Tolerated Well [See Physician Procedure note for Specifics] Pain Scale: 0-10 Numeric [Pain] -Is Patient Pain Free? Yes Musculoskeletal: No Muscle Wasting Neurological: Cranial nerves II-XII grossly intact Psych/Mental Status: Normal Affect Debridement Note Post-Debridement Measurements/Treatment WC - Nurse 2 - General Ulcer CM Notes Start: 12/28/17 13:13 Freq: Status: Active Protocol: Activity Type Activity Date Activity User E-Sign Co-Sign Detail Recorded Client Recorded Date Recorded By Document 12/28/17 14:03 [id number] 12/28/17 14:22 TM Document 01/04/18 11:32 TM [id number] 01/04/18 11:37 TM Document 01/04/18 12:33 DV [id number] 01/04/18 12:42 DV 12/28/17 01/04/18 01/04/18 14:03 11:32 12:33 Wound Center Nurse 2 7-RIGHT RING FINGER -Time 12:33 -Correct Patient Yes -Correct Side, Site, Position Yes -Correct Procedure Yes -Procedure Performed Yes -Type of Procedure Debridement -Clinical Debridement Subcutaneous -Post Debridement Size (cm) - Length 0.4 -Post Debridement Size (cm) - Width 1.5 -Post Debridement Size (cm) - Depth 0.2 -Total Square Cm 0.60 -Wound/Ulcer Outcome Not Healed -Ulcer Cleansing Rinsed/ Irrigated with Saline -Foul Odor after Cleansing No -Bioengineered Tissue No -Bleeding Controlled with Pressure -Treatment Response Procedure Tolerated Well 6-RIGHT MIDDLE FINGER -Time 12:34 -Correct Patient Yes -Correct Side, Site, Position Yes -Correct Procedure Yes -Procedure Performed Yes -Type of Procedure Debridement -Clinical Debridement Subcutaneous -Post Debridement Size (cm) - Length 0.3 -Post Debridement Size (cm) - Width 0.9 -Post Debridement Size (cm) - Depth 0.2 -Total Square Cm 0.27 -Wound/Ulcer Outcome Not Healed -Ulcer Cleansing Rinsed/ Irrigated with Saline -Foul Odor after Cleansing No -Bioengineered Tissue No -Bleeding Controlled with Pressure -Treatment Response Procedure Tolerated Well 5-RIGHT INDEX FINGER -Time 12:34 -Correct Patient Yes -Correct Side, Site, Position Yes -Correct Procedure Yes -Procedure Performed Yes -Type of Procedure Debridement -Clinical Debridement Subcutaneous -Post Debridement Size (cm) - Length 0.8 -Post Debridement Size (cm) - Width 0.7 -Post Debridement Size (cm) - Depth 0.1 -Total Square Cm 0.56 -Wound/Ulcer Outcome Not Healed -Ulcer Cleansing Rinsed/ Irrigated with Saline -Foul Odor after Cleansing No -Bioengineered Tissue No -Bleeding Controlled with Pressure -Treatment Response Procedure Tolerated Well #4 R HEEL -Time 14:09 11:32 -Correct Patient Yes Yes -Correct Side, Site, Position Yes Yes -Correct Procedure Yes Yes -Procedure Performed Yes Yes -Type of Procedure Debridement -Clinical Debridement Subcutaneous -Post Debridement Size (cm) - Length 0.6 0 -Post Debridement Size (cm) - Width 0.2 0 -Post Debridement Size (cm) - Depth 0.1 0 -Total Square Cm 0.12 0 -Wound/Ulcer Outcome Not Healed Healed- Epithelialized -Ulcer Cleansing Rinsed/ Rinsed/ Irrigated with Irrigated with Saline Saline -Foul Odor after Cleansing No No -Bioengineered Tissue No No -Topical Lidocaine (%) 4 4 -Bleeding Controlled with Pressure NA -Treatment Response Procedure Procedure Tolerated Well Tolerated Well #3 R 4TH METATARSAL -Time 14:09 11:33 -Correct Patient Yes Yes -Correct Side, Site, Position Yes Yes -Correct Procedure Yes Yes -Procedure Performed Yes Yes -Type of Procedure Debridement Debridement -Clinical Debridement Subcutaneous Subcutaneous -Post Debridement Size (cm) - Length 0.5 0.3 -Post Debridement Size (cm) - Width 0.2 0.2 -Post Debridement Size (cm) - Depth 0.1 0.1 -Total Square Cm 0.10 0.06 -Wound/Ulcer Outcome Not Healed Not Healed -Ulcer Cleansing Rinsed/ Rinsed/ Irrigated with Irrigated with Saline Saline -Foul Odor after Cleansing No No -Bioengineered Tissue No Yes -Type of bioengineered Tissue EPIFIX -Expiration Date 10/17/22 -Product Lot Number [id number] -Percent Used 33 -Topical Lidocaine (%) 4 4 -Bleeding Controlled with Pressure Pressure -Treatment Response Procedure Procedure Tolerated Well Tolerated Well #2 L HEEL -Time 14:09 11:34 -Correct Patient Yes Yes -Correct Side, Site, Position Yes Yes -Correct Procedure Yes Yes -Procedure Performed Yes Yes -Type of Procedure Debridement Debridement -Clinical Debridement Subcutaneous Subcutaneous -Post Debridement Size (cm) - Length 1.1 0.2 -Post Debridement Size (cm) - Width 0.2 1.9 -Post Debridement Size (cm) - Depth 0.2 0.1 -Total Square Cm 0.22 0.38 -Wound/Ulcer Outcome Not Healed Not Healed -Ulcer Cleansing Rinsed/ Rinsed/ Irrigated with Irrigated with Saline Saline -Foul Odor after Cleansing No No -Bioengineered Tissue No Yes -Type of bioengineered Tissue EPIFIX -Expiration Date 10/17/22 -Product Lot Number [id number] -Percent Used 33 -Topical Lidocaine (%) 4 4 -Bleeding Controlled with Pressure Pressure -Treatment Response Procedure Procedure Tolerated Well Tolerated Well #1 L LAT FOOT -Time 14:10 11:35 -Correct Patient Yes Yes -Correct Side, Site, Position Yes Yes -Correct Procedure Yes Yes -Procedure Performed Yes Yes -Type of Procedure Debridement Debridement -Clinical Debridement Subcutaneous Subcutaneous -Post Debridement Size (cm) - Length 0.3 0.3 -Post Debridement Size (cm) - Width 1.3 1.0 -Post Debridement Size (cm) - Depth 0.2 0.1 -Total Square Cm 0.39 0.30 -Wound/Ulcer Outcome Not Healed Not Healed -Ulcer Cleansing Rinsed/ Rinsed/ Irrigated with Irrigated with Saline Saline -Foul Odor after Cleansing No No -Bioengineered Tissue No Yes -Type of bioengineered Tissue EPIFIX -Expiration Date 10/17/22 -Product Lot Number [id number] -Percent Used 33 -Topical Lidocaine (%) 4 4 -Bleeding Controlled with Pressure Pressure -Treatment Response Procedure Procedure Tolerated Well Tolerated Well Pain Scale: 0-10 Numeric Is Patient Pain Free? Yes Yes Wound debrided: Right Index Finger Wound Grade/Stage: Stage II Type of Debridement: Excisional debridement Anesthesia Used: 4% Lidocaine Solution Depth: in the subcutaneous layer Percentage of wound debrided: 100 Instrument Used: #15 blade, Forceps Tissue Removed: Eschar, Slough and devitalized tissue Severity: Fat Layer Exposed Amount of bleeding with debridement: Mild Bleeding Controlled with: Pressure Patient tolerated procedure well - Additional Wound Wound debrided: Right middle finger Wound Grade/Stage: Stage II Type of Debridement: Excisional debridement Anesthesia Used: 4% Lidocaine Solution Depth: in the subcutaneous layer Percentage of wound debrided: 100 Instrument Used: 3mm curette Tissue Removed: Slough and devitalized tissue Severity: Fat Layer Exposed Amount of bleeding with debridement: Mild Bleeding Controlled with: Pressure Patient tolerated procedure: Patient tolerated procedure well - Additional Wound Wound debrided: Right ring finger Wound Grade/Stage: Stage II Type of Debridement: Excisional debridement Anesthesia Used: 4% Lidocaine Solution Depth: in the subcutaneous layer Percentage of wound debrided: 100 Instrument Used: 3mm curette Tissue Removed: Slough and devitalized tissue Severity: Fat Layer Exposed Amount of bleeding with debridement: Mild Bleeding Controlled with: Pressure Patient tolerated procedure: Patient tolerated procedure well Assessment/Plan Active Problems (Last Reviewed 11/01/17 @ 16:03 by Wilmer Cartwright) Other specified peripheral vascular diseases (Chronic) Ulcer of right foot with fat layer exposed (Chronic) 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 Assessment: Right heel ulcer healed. left heel ulcers with fat exposed. Right sub-fourth metatarsal head ulcer with fat exposed. Left sub-fifth metatarsal head ulcer with fat exposed. Diabetes with neuropathy. Xerosis. Hammertoes bilateral. Noncompliance. Right Index , Middle and Ring finger ulcers with Fat layer exposed.(sees Dr. Vance) Plan: Mr. Espinoza presents with a 3 month history of digit ulcers as described above. Right middle and ring fingers as a result of significant callus. Right index finger possibly due to vasoconstriction from his history of Raynaud's. Debridement of all three ulcers was done. Procedure was well tolerated. Mild tenderness of the right index finger noted during debridement. Apply beau with adaptic covering to all three ulcers with advice also given about moisturizing skin adequately. Desuaded from using Latex gloves at night. 100% cotton gloves preferred. Patient will benefit from a CCB to increase vasodilation and blood flow to his digits due to his history of raynaud's. Other chronic wound care instructions/plan as addressed with Dr. Aparicio. Follow up in 1 week.
--- NOTE | 2018-01-04 19:05 | HP.PCM_ITS ---
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 (3) Diabetes mellitus type 2 with complications Status: Chronic Current Visit: No Code(s): E11.8 - Type 2 diabetes mellitus with unspecified complications History of Present Illness Date of Service: 01/04/18 Chief Complaint: Ulcers of right index, middle and ring finger. History of Wound: Mr. Espinoza is a 57yo with PMH of Diabetes currently seeing Dr Aparicio for lower extremity ulcers. I was asked to see him for chronic ulcers of his right index, middle and ring fingers. He is a [place] and has chronic upper extremity callus and has had ulcers which have typically healed well however, current episodes of his right middle and ring fingers have persisted despite management with neosporin application. There is no significant callous of his right index finger however, he noted the ulcer sometime in September after he had been in 0 degree weather with exposed hands for a long time. He reports pain in that digit but denies any discharge from the site. He has also been applying Neosporin without any significant improvement. 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 Diabetes mellitus type 2 with complications (Chronic) Hypertension (Chronic) Neuropathy (Chronic) Most likely severe diabetic neuropathy Workup [facility] Cerebrovascular disease (Chronic) Right thalamic stroke Surgical History: - - Toe amputations RLE Allergies/Adverse Reactions: Allergies atorvastatin Adverse Reaction (Verified 12/28/17 13:47) Unknown metformin Adverse Reaction (Verified 12/28/17 13:47) Diarrhea Home Medications: Ambulatory Orders Medication Instructions Recorded Lisinopril [Zestril] 5 mg PO DAILY #30 tablet 10/08/13 Gabapentin [Neurontin] 600 mg PO TIDCM 11/07/14 Tizanidine HCl [Zanaflex] 4 mg PO DAILY 11/07/14 Cetirizine HCl [Zyrtec] 10 mg PO DAILY #1 tablet 11/09/14 Ammonium Lactate [Amlactin] 57 gm TP PRN PRN 10/04/17 Baclofen 60 mg PO DAILY 10/04/17 Celecoxib [Celebrex] 200 mg PO DAILY 10/04/17 Cholecalciferol (Vitamin D3) 5,000 unit PO DAILY 10/04/17 [Vitamin D3] Cyanocobalamin [Vitamin B12] 1,000 mcg IM Q30D 10/04/17 Insulin Glargine [Lantus SoloStar 15 units SC QHS 10/04/17 Pen] Insulin Lispro [Humalog] 12 - 20 unit SC ACHS 10/04/17 Levomefolate/B6/B12/Algal Oil 1 each PO DAILY 10/04/17 [Metanx Capsule] Nortriptyline HCl 50 mg PO QHS 10/04/17 TraMADol [Ultram] 50 mg PO Q4H PRN PRN 10/04/17 Aspirin 325 mg PO DAILY@0800 10/21/17 - Family History Maternal Family History: Family History (Last Reviewed 11/01/17 @ 16:03 by Wilmer Cartwright) Other Arthritis Hypertension Diabetes Paternal Family History: Family History (Last Reviewed 11/01/17 @ 16:03 by Wilmer Cartwright) Other Arthritis Hypertension Diabetes Smoking Status: Never smoker Review of Systems Constitutional: Denies: Anorexia, Chills, Fever Eyes: Denies: Pain, Redness HEENT: Denies: Difficulty Hearing, Difficulty Swallowing Cardiovascular: Denies: Chest Pain, Heaviness Respiratory: Denies: Cough, Hemoptysis Gastrointestinal: Denies: Abdominal Pain, Hematemesis, Vomiting Skin: Denies: Dryness, Jaundice - Physical Exam Vital Signs Temp Pulse Resp BP 98.4 F 98 16 153/83 H 01/04/18 10:51 01/04/18 10:51 01/04/18 10:51 01/04/18 10:51 General: Alert, Oriented x3, Cooperative, No apparent distress HEENT: Atraumatic, Normocephalic Oral: Moist Mucosa Neck: Supple, No Nuchal Rigidity Lungs: Normal air movement Cardiovascular: Regular rate Abdomen: Soft, Non Tender Extremities: No cyanosis Wound Measurements and Assessment WC - Nurse 1 - General Ulcer Measurement Start: 12/28/17 13:13 Freq: Status: Active Protocol: Activity Type Activity Date Activity User E-Sign Co-Sign Detail Recorded Client Recorded Date Recorded By Document 01/04/18 10:51 [id number] 01/04/18 11:07 MARJORIE 01/04/18 10:51 Wound Center Nurse 1 [Ulcer Assessment] 7-RIGHT RING FINGER -Combined with other wound No -Current Size (cm) - Length 0.2 -Current Size (cm) - Width 1.4 -Current Size (cm) - Depth 0.2 -Total Square Cm 0.28 -Photo Taken Yes -Epithelialization None Present -Tunneling No -Undermining/Tunneling No -Circular Undermining No -Classification - Thickness Full Thickness without Exposed Support Structure -Exudate Amt None Present (0 %) -Wound Margin Flat & Intact -Granulation Amt Large (67-100%) -Granulation Quality Red -Slough/Fibrin Yes -Necrosis Amt Small (1-33%) -Necrotic Tissue Type Adherent Slough -Structure Exposed N/A -Texture (Mechelle-wound Skin Appearance) Assessed Callus Localized Edema -Moisture (Mechelle-wound Skin Appearance Assessed ) Dry/Scaly -Color (Mechelle-wound Skin Appearance) Assessed -Temperature (Mechelle-wound Skin No Abnormality Appearance) (Pt Warm) -Tenderness on Palpation (Mechelle-wound No Skin Appearance) -Ulcer Cleansing Rinsed/ Irrigated with Saline -Foul Odor after Cleansing No -Anesthetic Used 4% Lidocaine Solution 6-RIGHT MIDDLE FINGER -Combined with other wound No -Current Size (cm) - Length 0.1 -Current Size (cm) - Width 0.8 -Current Size (cm) - Depth 0.2 -Total Square Cm 0.08 -Photo Taken Yes -Epithelialization Medium 34-66% -Tunneling No -Undermining/Tunneling No -Circular Undermining No -Classification - Thickness Full Thickness without Exposed Support Structure -Exudate Amt None Present (0 %) -Wound Margin Flat & Intact -Granulation Amt Medium (34-66%) -Granulation Quality Red -Slough/Fibrin Yes -Necrosis Amt Small (1-33%) -Necrotic Tissue Type Adherent Slough -Structure Exposed N/A -Texture (M[place]helle-wound Skin Appearance) Assessed Callus -Moisture (Mechelle-wound Skin Appearance Assessed ) Dry/Scaly -Color (Mechelle-wound Skin Appearance) Assessed -Temperature ([place]helle-wound Skin No Abnormality Appearance) (Pt Warm) -Tenderness on Palpation ([place]-wound No Skin Appearance) -Ulcer Cleansing Rinsed/ Irrigated with Saline -Foul Odor after Cleansing No -Anesthetic Used 4% Lidocaine Solution 5-RIGHT INDEX FINGER -Combined with other wound No -Current Size (cm) - Length 0.5 -Current Size (cm) - Width 0.6 -Current Size (cm) - Depth 0.1 -Total Square Cm 0.30 -Photo Taken Yes -Epithelialization None Present -Tunneling No -Undermining/Tunneling No -Circular Undermining No -Classification - Thickness Unclassifiable (Eschar Covered ) -Exudate Amt None Present (0 %) -Wound Margin Flat & Intact -Granulation Amt None Present (0 %) -Slough/Fibrin Yes -Necrosis Amt Large (67-100%) -Necrotic Tissue Type Adherent Slough -Structure Exposed N/A -Texture (Mechelle-wound Skin Appearance) Assessed Localized Edema -Moisture (Mechelle-wound Skin Appearance Assessed ) Dry/Scaly -Color (Mechelle-wound Skin Appearance) Assessed -Temperature ([place]helle-wound Skin No Abnormality Appearance) (Pt Warm) -Tenderness on Palpation (Mechelle-wound No Skin Appearance) -Ulcer Cleansing Rinsed/ Irrigated with Saline -Foul Odor after Cleansing No -Anesthetic Used 4% Lidocaine Solution #4 R HEEL -Combined with other wound No -Current Size (cm) - Length 0.1 -Current Size (cm) - Width 0.1 -Current Size (cm) - Depth 0.1 -Total Square Cm 0.01 -Photo Taken No -Epithelialization Small 1-33% -Tunneling No -Undermining/Tunneling No -Circular Undermining No -Exudate Amt None Present (0 %) -Wound Margin Flat & Intact -Granulation Amt None Present (0 %) -Granulation Quality Pale -Necrosis Amt Large (67-100%) -Structure Exposed N/A -Texture (Mechelle-wound Skin Appearance) Assessed Callus -Moisture (Mechelle-wound Skin Appearance Assessed ) Dry/Scaly -Color (Mechelle-wound Skin Appearance) Assessed -Temperature ([place]helle-wound Skin No Abnormality Appearance) (Pt Warm) -Tenderness on Palpation (Mechelle-wound No Skin Appearance) -Ulcer Cleansing Rinsed/ Irrigated with Saline -Foul Odor after Cleansing No -Anesthetic Used 4% Lidocaine Solution #3 R 4TH METATARSAL -Combined with other wound No -Current Size (cm) - Length 0.2 -Current Size (cm) - Width 0.1 -Current Size (cm) - Depth 0.1 -Total Square Cm 0.02 -Photo Taken No -Epithelialization Small 1-33% -Tunneling No -Undermining/Tunneling No -Circular Undermining No -Exudate Amt Small (1-33%) -Exudate Type Serosanguineous -Wound Margin Flat & Intact -Granulation Amt Large (67-100%) -Granulation Quality Pale -Slough/Fibrin Yes -Necrosis Amt Small (1-33%) -Necrotic Tissue Type Adherent Slough -Structure Exposed N/A -Texture (Mechelle-wound Skin Appearance) Assessed Callus -Moisture (Mechelle-wound Skin Appearance Assessed ) Dry/Scaly -Color (Mechelle-wound Skin Appearance) Assessed -Temperature ([place]helle-wound Skin No Abnormality Appearance) (Pt Warm) -Tenderness on Palpation (Mechelle-wound No Skin Appearance) -Ulcer Cleansing Rinsed/ Irrigated with Saline -Foul Odor after Cleansing No -Anesthetic Used 4% Lidocaine Solution #2 L HEEL -Combined with other wound No -Current Size (cm) - Length 0.1 -Current Size (cm) - Width 1.8 -Current Size (cm) - Depth 0.1 -Total Square Cm 0.18 -Photo Taken No -Epithelialization Medium 34-66% -Tunneling No -Undermining/Tunneling No -Circular Undermining No -Exudate Amt Small (1-33%) -Exudate Type Serosanguineous -Wound Margin Flat & Intact -Granulation Amt Large (67-100%) -Granulation Quality Pale -Slough/Fibrin Yes -Necrosis Amt Small (1-33%) -Necrotic Tissue Type Adherent Slough -Structure Exposed N/A -Texture (Mechelle-wound Skin Appearance) Assessed Callus -Moisture (Mechelle-wound Skin Appearance Assessed ) Dry/Scaly -Color (Mechelle-wound Skin Appearance) Assessed -Temperature ([place]helle-wound Skin No Abnormality Appearance) (Pt Warm) -Tenderness on Palpation (Mechelle-wound No Skin Appearance) -Ulcer Cleansing Rinsed/ Irrigated with Saline -Foul Odor after Cleansing No -Anesthetic Used 4% Lidocaine Solution #1 L LAT FOOT -Combined with other wound No -Current Size (cm) - Length 0.2 -Current Size (cm) - Width 0.9 -Current Size (cm) - Depth 0.1 -Total Square Cm 0.18 -Photo Taken No -Epithelialization Small 1-33% -Tunneling No -Undermining/Tunneling No -Circular Undermining No -Exudate Amt Small (1-33%) -Exudate Type Serosanguineous -Wound Margin Flat & Intact -Granulation Amt Medium (34-66%) -Granulation Quality Pale [place] -Slough/Fibrin Yes -Necrosis Amt Small (1-33%) -Necrotic Tissue Type Adherent Slough -Structure Exposed N/A -Texture (Mechelle-wound Skin Appearance) Assessed Callus -Moisture (Mechelle-wound Skin Appearance Assessed ) Dry/Scaly -Color (Mechelle-wound Skin Appearance) Assessed -Temperature (Mechelle-wound Skin No Abnormality Appearance) (Pt Warm) -Tenderness on Palpation (Mechelle-wound No Skin Appearance) -Ulcer Cleansing Rinsed/ Irrigated with Saline -Foul Odor after Cleansing No -Anesthetic Used 4% Lidocaine Solution [Edema Assessment] -Lower Limb Edema Present NA WC - Nurse 2 - General Ulcer CM Notes Start: 12/28/17 13:13 Freq: Status: Active Protocol: Activity Type Activity Date Activity User E-Sign Co-Sign Detail Recorded Client Recorded Date Recorded By Document 01/04/18 11:32 TM [id number] 01/04/18 11:37 TM Document 01/04/18 12:33 DV [id number] 01/04/18 12:42 DV 01/04/18 01/04/18 11:32 12:33 Wound Center Nurse 2 [Procedure/Treatment] 7-RIGHT RING FINGER -Time 12:33 -Correct Patient Yes -Correct Side, Site, Position Yes -Correct Procedure Yes -Procedure Performed Yes -Type of Procedure Debridement -Clinical Debridement Subcutaneous -Post Debridement Size (cm) - Length 0.4 -Post Debridement Size (cm) - Width 1.5 -Post Debridement Size (cm) - Depth 0.2 -Total Square Cm 0.60 -Wound/Ulcer Outcome Not Healed -Ulcer Cleansing Rinsed/ Irrigated with Saline -Foul Odor after Cleansing No -Bioengineered Tissue No -Bleeding Controlled with Pressure -Treatment Response Procedure Tolerated Well 6-RIGHT MIDDLE FINGER -Time 12:34 -Correct Patient Yes -Correct Side, Site, Position Yes -Correct Procedure Yes -Procedure Performed Yes -Type of Procedure Debridement -Clinical Debridement Subcutaneous -Post Debridement Size (cm) - Length 0.3 -Post Debridement Size (cm) - Width 0.9 -Post Debridement Size (cm) - Depth 0.2 -Total Square Cm 0.27 -Wound/Ulcer Outcome Not Healed -Ulcer Cleansing Rinsed/ Irrigated with Saline -Foul Odor after Cleansing No -Bioengineered Tissue No -Bleeding Controlled with Pressure -Treatment Response Procedure Tolerated Well 5-RIGHT INDEX FINGER -Time 12:34 -Correct Patient Yes -Correct Side, Site, Position Yes -Correct Procedure Yes -Procedure Performed Yes -Type of Procedure Debridement -Clinical Debridement Subcutaneous -Post Debridement Size (cm) - Length 0.8 -Post Debridement Size (cm) - Width 0.7 -Post Debridement Size (cm) - Depth 0.1 -Total Square Cm 0.56 -Wound/Ulcer Outcome Not Healed -Ulcer Cleansing Rinsed/ Irrigated with Saline -Foul Odor after Cleansing No -Bioengineered Tissue No -Bleeding Controlled with Pressure -Treatment Response Procedure Tolerated Well #4 R HEEL -Time 11:32 -Correct Patient Yes -Correct Side, Site, Position Yes -Correct Procedure Yes -Procedure Performed Yes -Post Debridement Size (cm) - Length 0 -Post Debridement Size (cm) - Width 0 -Post Debridement Size (cm) - Depth 0 -Total Square Cm 0 -Wound/Ulcer Outcome Healed- Epithelialized -Ulcer Cleansing Rinsed/ Irrigated with Saline -Foul Odor after Cleansing No -Bioengineered Tissue No -Topical Lidocaine (%) 4 -Bleeding Controlled with NA -Treatment Response Procedure Tolerated Well #3 R 4TH METATARSAL -Time 11:33 -Correct Patient Yes -Correct Side, Site, Position Yes -Correct Procedure Yes -Procedure Performed Yes -Type of Procedure Debridement -Clinical Debridement Subcutaneous -Post Debridement Size (cm) - Length 0.3 -Post Debridement Size (cm) - Width 0.2 -Post Debridement Size (cm) - Depth 0.1 -Total Square Cm 0.06 -Wound/Ulcer Outcome Not Healed -Ulcer Cleansing Rinsed/ Irrigated with Saline -Foul Odor after Cleansing No -Bioengineered Tissue Yes -Type of bioengineered Tissue EPIFIX -Expiration Date 10/17/22 -Product Lot Number [id number] -Percent Used 33 -Topical Lidocaine (%) 4 -Bleeding Controlled with Pressure -Treatment Response Procedure Tolerated Well #2 L HEEL -Time 11:34 -Correct Patient Yes -Correct Side, Site, Position Yes -Correct Procedure Yes -Procedure Performed Yes -Type of Procedure Debridement -Clinical Debridement Subcutaneous -Post Debridement Size (cm) - Length 0.2 -Post Debridement Size (cm) - Width 1.9 -Post Debridement Size (cm) - Depth 0.1 -Total Square Cm 0.38 -Wound/Ulcer Outcome Not Healed -Ulcer Cleansing Rinsed/ Irrigated with Saline -Foul Odor after Cleansing No -Bioengineered Tissue Yes -Type of bioengineered Tissue EPIFIX -Expiration Date 10/17/22 -Product Lot Number [id number] -Percent Used 33 -Topical Lidocaine (%) 4 -Bleeding Controlled with Pressure -Treatment Response Procedure Tolerated Well #1 L LAT FOOT -Time 11:35 -Correct Patient Yes -Correct Side, Site, Position Yes -Correct Procedure Yes -Procedure Performed Yes -Type of Procedure Debridement -Clinical Debridement Subcutaneous -Post Debridement Size (cm) - Length 0.3 -Post Debridement Size (cm) - Width 1.0 -Post Debridement Size (cm) - Depth 0.1 -Total Square Cm 0.30 -Wound/Ulcer Outcome Not Healed -Ulcer Cleansing Rinsed/ Irrigated with Saline -Foul Odor after Cleansing No -Bioengineered Tissue Yes -Type of bioengineered Tissue EPIFIX -Expiration Date 10/17/22 -Product Lot Number [id number] -Percent Used 33 -Topical Lidocaine (%) 4 -Bleeding Controlled with Pressure -Treatment Response Procedure Tolerated Well [See Physician Procedure note for Specifics] Pain Scale: 0-10 Numeric [Pain] -Is Patient Pain Free? Yes Musculoskeletal: No Muscle Wasting Neurological: Cranial nerves II-XII grossly intact Psych/Mental Status: Normal Affect Debridement Note Post-Debridement Measurements/Treatment WC - Nurse 2 - General Ulcer CM Notes Start: 12/28/17 13:13 Freq: Status: Active Protocol: Activity Type Activity Date Activity User E-Sign Co-Sign Detail Recorded Client Recorded Date Recorded By Document 12/28/17 14:03 [id number] 12/28/17 14:22 TM Document 01/04/18 11:32 TM [id number] 01/04/18 11:37 TM Document 01/04/18 12:33 DV [id number] 01/04/18 12:42 DV 12/28/17 01/04/18 01/04/18 14:03 11:32 12:33 Wound Center Nurse 2 7-RIGHT RING FINGER -Time 12:33 -Correct Patient Yes -Correct Side, Site, Position Yes -Correct Procedure Yes -Procedure Performed Yes -Type of Procedure Debridement -Clinical Debridement Subcutaneous -Post Debridement Size (cm) - Length 0.4 -Post Debridement Size (cm) - Width 1.5 -Post Debridement Size (cm) - Depth 0.2 -Total Square Cm 0.60 -Wound/Ulcer Outcome Not Healed -Ulcer Cleansing Rinsed/ Irrigated with Saline -Foul Odor after Cleansing No -Bioengineered Tissue No -Bleeding Controlled with Pressure -Treatment Response Procedure Tolerated Well 6-RIGHT MIDDLE FINGER -Time 12:34 -Correct Patient Yes -Correct Side, Site, Position Yes -Correct Procedure Yes -Procedure Performed Yes -Type of Procedure Debridement -Clinical Debridement Subcutaneous -Post Debridement Size (cm) - Length 0.3 -Post Debridement Size (cm) - Width 0.9 -Post Debridement Size (cm) - Depth 0.2 -Total Square Cm 0.27 -Wound/Ulcer Outcome Not Healed -Ulcer Cleansing Rinsed/ Irrigated with Saline -Foul Odor after Cleansing No -Bioengineered Tissue No -Bleeding Controlled with Pressure -Treatment Response Procedure Tolerated Well 5-RIGHT INDEX FINGER -Time 12:34 -Correct Patient Yes -Correct Side, Site, Position Yes -Correct Procedure Yes -Procedure Performed Yes -Type of Procedure Debridement -Clinical Debridement Subcutaneous -Post Debridement Size (cm) - Length 0.8 -Post Debridement Size (cm) - Width 0.7 -Post Debridement Size (cm) - Depth 0.1 -Total Square Cm 0.56 -Wound/Ulcer Outcome Not Healed -Ulcer Cleansing Rinsed/ Irrigated with Saline -Foul Odor after Cleansing No -Bioengineered Tissue No -Bleeding Controlled with Pressure -Treatment Response Procedure Tolerated Well #4 R HEEL -Time 14:09 11:32 -Correct Patient Yes Yes -Correct Side, Site, Position Yes Yes -Correct Procedure Yes Yes -Procedure Performed Yes Yes -Type of Procedure Debridement -Clinical Debridement Subcutaneous -Post Debridement Size (cm) - Length 0.6 0 -Post Debridement Size (cm) - Width 0.2 0 -Post Debridement Size (cm) - Depth 0.1 0 -Total Square Cm 0.12 0 -Wound/Ulcer Outcome Not Healed Healed- Epithelialized -Ulcer Cleansing Rinsed/ Rinsed/ Irrigated with Irrigated with Saline Saline -Foul Odor after Cleansing No No -Bioengineered Tissue No No -Topical Lidocaine (%) 4 4 -Bleeding Controlled with Pressure NA -Treatment Response Procedure Procedure Tolerated Well Tolerated Well #3 R 4TH METATARSAL -Time 14:09 11:33 -Correct Patient Yes Yes -Correct Side, Site, Position Yes Yes -Correct Procedure Yes Yes -Procedure Performed Yes Yes -Type of Procedure Debridement Debridement -Clinical Debridement Subcutaneous Subcutaneous -Post Debridement Size (cm) - Length 0.5 0.3 -Post Debridement Size (cm) - Width 0.2 0.2 -Post Debridement Size (cm) - Depth 0.1 0.1 -Total Square Cm 0.10 0.06 -Wound/Ulcer Outcome Not Healed Not Healed -Ulcer Cleansing Rinsed/ Rinsed/ Irrigated with Irrigated with Saline Saline -Foul Odor after Cleansing No No -Bioengineered Tissue No Yes -Type of bioengineered Tissue EPIFIX -Expiration Date 10/17/22 -Product Lot Number [id number] -Percent Used 33 -Topical Lidocaine (%) 4 4 -Bleeding Controlled with Pressure Pressure -Treatment Response Procedure Procedure Tolerated Well Tolerated Well #2 L HEEL -Time 14:09 11:34 -Correct Patient Yes Yes -Correct Side, Site, Position Yes Yes -Correct Procedure Yes Yes -Procedure Performed Yes Yes -Type of Procedure Debridement Debridement -Clinical Debridement Subcutaneous Subcutaneous -Post Debridement Size (cm) - Length 1.1 0.2 -Post Debridement Size (cm) - Width 0.2 1.9 -Post Debridement Size (cm) - Depth 0.2 0.1 -Total Square Cm 0.22 0.38 -Wound/Ulcer Outcome Not Healed Not Healed -Ulcer Cleansing Rinsed/ Rinsed/ Irrigated with Irrigated with Saline Saline -Foul Odor after Cleansing No No -Bioengineered Tissue No Yes -Type of bioengineered Tissue EPIFIX -Expiration Date 10/17/22 -Product Lot Number [id number] -Percent Used 33 -Topical Lidocaine (%) 4 4 -Bleeding Controlled with Pressure Pressure -Treatment Response Procedure Procedure Tolerated Well Tolerated Well #1 L LAT FOOT -Time 14:10 11:35 -Correct Patient Yes Yes -Correct Side, Site, Position Yes Yes -Correct Procedure Yes Yes -Procedure Performed Yes Yes -Type of Procedure Debridement Debridement -Clinical Debridement Subcutaneous Subcutaneous -Post Debridement Size (cm) - Length 0.3 0.3 -Post Debridement Size (cm) - Width 1.3 1.0 -Post Debridement Size (cm) - Depth 0.2 0.1 -Total Square Cm 0.39 0.30 -Wound/Ulcer Outcome Not Healed Not Healed -Ulcer Cleansing Rinsed/ Rinsed/ Irrigated with Irrigated with Saline Saline -Foul Odor after Cleansing No No -Bioengineered Tissue No Yes -Type of bioengineered Tissue EPIFIX -Expiration Date 10/17/22 -Product Lot Number [id number] -Percent Used 33 -Topical Lidocaine (%) 4 4 -Bleeding Controlled with Pressure Pressure -Treatment Response Procedure Procedure Tolerated Well Tolerated Well Pain Scale: 0-10 Numeric Is Patient Pain Free? Yes Yes Wound debrided: Right Index Finger Wound Grade/Stage: Stage II Type of Debridement: Excisional debridement Anesthesia Used: 4% Lidocaine Solution Depth: in the subcutaneous layer Percentage of wound debrided: 100 Instrument Used: #15 blade, Forceps Tissue Removed: Eschar, Slough and devitalized tissue Severity: Fat Layer Exposed Amount of bleeding with debridement: Mild Bleeding Controlled with: Pressure Patient tolerated procedure well - Additional Wound Wound debrided: Right middle finger Wound Grade/Stage: Stage II Type of Debridement: Excisional debridement Anesthesia Used: 4% Lidocaine Solution Depth: in the subcutaneous layer Percentage of wound debrided: 100 Instrument Used: 3mm curette Tissue Removed: Slough and devitalized tissue Severity: Fat Layer Exposed Amount of bleeding with debridement: Mild Bleeding Controlled with: Pressure Patient tolerated procedure: Patient tolerated procedure well - Additional Wound Wound debrided: Right ring finger Wound Grade/Stage: Stage II Type of Debridement: Excisional debridement Anesthesia Used: 4% Lidocaine Solution Depth: in the subcutaneous layer Percentage of wound debrided: 100 Instrument Used: 3mm curette Tissue Removed: Slough and devitalized tissue Severity: Fat Layer Exposed Amount of bleeding with debridement: Mild Bleeding Controlled with: Pressure Patient tolerated procedure: Patient tolerated procedure well Assessment/Plan Active Problems (Last Reviewed 11/01/17 @ 16:03 by Wilmer Cartwright) Other specified peripheral vascular diseases (Chronic) Ulcer of right foot with fat layer exposed (Chronic) 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 Assessment: Right heel ulcer healed. left heel ulcers with fat exposed. Right sub-fourth metatarsal head ulcer with fat exposed. Left sub-fifth metatarsal head ulcer with fat exposed. Diabetes with neuropathy. Xerosis. Hammertoes bilateral. Noncompliance. Right Index , Middle and Ring finger ulcers with Fat layer exposed.(sees Dr. Vance) Plan: Mr. Espinoza presents with a 3 month history of digit ulcers as described above. Right middle and ring fingers as a result of significant callus. Right index finger possibly due to vasoconstriction from his history of Raynaud's. Debridement of all three ulcers was done. Procedure was well tolerated. Mild tenderness of the right index finger noted during debridement. Apply beau with adaptic covering to all three ulcers with advice also given about moisturizing skin adequately. Desuaded from using Latex gloves at night. 100% cotton gloves preferred. Patient will benefit from a CCB to increase vasodilation and blood flow to his digits due to his history of raynaud's. Other chronic wound care instructions/plan as addressed with Dr. Aparicio. Follow up in 1 week.
[2018-01-11 11:05] VITALS: BP 102/59; PULSE 97; RESP 18; TEMP 37.3; BMI 60.0
--- NOTE | 2018-01-11 12:10 | PN.PCM_ITS ---
(1) Ulcer of right foot with fat layer exposed Status: Chronic Current Visit: Yes Code(s): L97.512 - Non-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ulcer of other part of right foot with fat layer exposed (2) Chronic ulcer of left foot with fat layer exposed Status: Chronic Current Visit: Yes Code(s): L97.522 - Non-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ulcer of other part of left foot with fat layer exposed (3) Other specified peripheral vascular diseases Status: Chronic Current Visit: Yes Code(s): I73.89 - Other specified peripheral vascular diseases (4) Xerosis of skin Status: Chronic Current Visit: Yes Code(s): L85.3 - Xerosis cutis (5) Non-compliance Status: Chronic Current Visit: Yes Code(s): Z91.19 - Patient's noncompliance with other medical treatment and regimen Type of Wound Date of Service: 01/11/18 Chief Complaint: ulcers to heels healed. foot ulcers History of Wound: This 57-year-old male with multiple comorbidities was seen for ulcers of both feet with an onset of nearly 2 months ago. The ulcer started as cracks in the skin. He denies heel drainage to both feet at this time. Kept his epi fix and dressings clean and intact since last week as advised. He has tried his best to decrease his activity and wear his offloading surgical shoes this past week. He denies fever, chill, nausea, vomiting, foot pain today. His skin is dry skin symptoms. He does have rest paresthesias and continued lack of sensation due to his neuropathy. He has multiple wounds to his right hand fingers and he was seen today by Dr. Vance. Progress of Wound: healed heel bilateral. forefoot ulcer bilateral improving - Physical Exam Vital Signs Temp Pulse Resp BP 99.1 F 97 18 102/59 L 01/11/18 11:05 01/11/18 11:05 01/11/18 11:05 01/11/18 11:05 General: Alert, Oriented x3, Cooperative Extremities: No cyanosis, No edema, Capillary Refill Less than 3 Seconds, No Calf Tenderness - Negative Ashanti and Palma bilateral, Diminished Peripheral Pulses, - - Dorsal digital contraction consistent hammertoe deformity bilateral with prominent metatarsal heads Skin: Ulcer/ Wound - No purulence, no erythema, streaking, no infection, no deep tissue exposure. There is full epithelialization to the previous ulcer and fissure sites to the heels. decreased ulcer size forefoot bilateral. atrophic skin Wound Measurements and Assessment WC - Nurse 1 - General Ulcer Measurement Start: 12/28/17 13:13 Freq: Status: Active Protocol: Activity Type Activity Date Activity User E-Sign Co-Sign Detail Recorded Client Recorded Date Recorded By Document 01/11/18 11:05 RB [id number] 01/11/18 11:32 RB 01/11/18 11:05 Wound Center Nurse 1 [Ulcer Assessment] 7-RIGHT RING FINGER -Combined with other wound No -Current Size (cm) - Length 0.1 -Current Size (cm) - Width 1 -Current Size (cm) - Depth 0.1 -Total Square Cm 0.1 -Photo Taken No -Tunneling No -Undermining/Tunneling No -Circular Undermining No -Classification - Thickness Full Thickness without Exposed Support Structure -Change in Wound Grade/Stage No Query Text:If change please identify the Stage/Grade in the comment (ie. S2 G3) -Exudate Amt None Present (0 %) -Wound Margin Distinct, Outline Attached -Granulation Amt Small (1-33%) -Granulation Quality [employer] -Slough/Fibrin Yes -Necrosis Amt Medium (34-66%) -Necrotic Tissue Type Adherent Slough -Structure Exposed N/A -Texture (Mechelle-wound Skin Appearance) Assessed -Moisture (Mechelle-wound Skin Appearance Assessed ) -Color (Mechelle-wound Skin Appearance) Assessed -Temperature (Mechelle-wound Skin No Abnormality Appearance) (Pt Warm) -Tenderness on Palpation (Mechelle-wound No Skin Appearance) -Ulcer Cleansing Rinsed/ Irrigated with Saline -Foul Odor after Cleansing No -Anesthetic Used 5% Lidocaine Gel 6-RIGHT MIDDLE FINGER -Combined with other wound No -Current Size (cm) - Length 0.1 -Current Size (cm) - Width 1.2 -Current Size (cm) - Depth 0.1 -Total Square Cm 0.12 -Photo Taken No -Tunneling No -Undermining/Tunneling No -Circular Undermining No -Classification - Thickness Full Thickness without Exposed Support Structure -Exudate Amt None Present (0 %) -Wound Margin Distinct, Outline Attached -Granulation Amt Small (1-33%) -Granulation Quality [employer] -Slough/Fibrin Yes -Necrosis Amt Medium (34-66%) -Necrotic Tissue Type Adherent Slough -Structure Exposed N/A -Texture (Mechelle-wound Skin Appearance) Assessed -Moisture (Mechelle-wound Skin Appearance Assessed ) -Color (Mechelle-wound Skin Appearance) Assessed -Temperature (Mechelle-wound Skin No Abnormality Appearance) (Pt Warm) -Tenderness on Palpation (Mechelle-wound No Skin Appearance) -Ulcer Cleansing Rinsed/ Irrigated with Saline -Foul Odor after Cleansing No -Anesthetic Used 5% Lidocaine Gel 5-RIGHT INDEX FINGER -Combined with other wound No -Current Size (cm) - Length 0.8 -Current Size (cm) - Width 0.7 -Current Size (cm) - Depth 0.1 -Total Square Cm 0.56 -Photo Taken No -Epithelialization None Present -Tunneling No -Undermining/Tunneling No -Circular Undermining No -Classification - Thickness Unclassifiable (Eschar Covered ) -Exudate Amt Small (1-33%) -Exudate Type Serosanguineous -Wound Margin Distinct, Outline Attached -Granulation Amt Medium (34-66%) -Granulation Quality [employer] -Slough/Fibrin Yes -Necrosis Amt Small (1-33%) -Necrotic Tissue Type Adherent Slough -Structure Exposed N/A -Texture (Mechelle-wound Skin Appearance) Assessed -Moisture (Mechelle-wound Skin Appearance Assessed ) -Color (Mechelle-wound Skin Appearance) Assessed -Temperature (Mechelle-wound Skin No Abnormality Appearance) (Pt Warm) -Tenderness on Palpation (Mechelle-wound No Skin Appearance) -Ulcer Cleansing Rinsed/ Irrigated with Saline -Foul Odor after Cleansing No -Anesthetic Used 5% Lidocaine Gel #3 R 4TH METATARSAL -Combined with other wound No -Current Size (cm) - Length 0.6 -Current Size (cm) - Width 0.3 -Current Size (cm) - Depth 0.2 -Total Square Cm 0.18 -Photo Taken No -Epithelialization None Present -Tunneling No -Undermining/Tunneling No -Circular Undermining No -Classification - Thickness Full Thickness without Exposed Support Structure -Exudate Amt None Present (0 %) -Wound Margin Distinct, Outline Attached -Granulation Amt Medium (34-66%) -Granulation Quality [employer] -Slough/Fibrin Yes -Necrosis Amt Medium (34-66%) -Necrotic Tissue Type Adherent Slough -Structure Exposed N/A -Texture (Mechelle-wound Skin Appearance) Assessed Callus -Moisture (Mechelle-wound Skin Appearance Assessed ) -Color (Mechelle-wound Skin Appearance) Assessed -Temperature (Mechelle-wound Skin No Abnormality Appearance) (Pt Warm) -Tenderness on Palpation (Mechelle-wound No Skin Appearance) -Ulcer Cleansing Rinsed/ Irrigated with Saline -Foul Odor after Cleansing No -Anesthetic Used 5% Lidocaine Gel #2 L HEEL -Combined with other wound No -Current Size (cm) - Length 0.5 -Current Size (cm) - Width 0.1 -Current Size (cm) - Depth 0.1 -Total Square Cm 0.05 -Photo Taken No -Tunneling No -Undermining/Tunneling No -Circular Undermining No -Classification - Thickness Full Thickness without Exposed Support Structure -Exudate Amt None Present (0 %) -Wound Margin Distinct, Outline Attached -Granulation Amt Medium (34-66%) -Granulation Quality [employer] -Slough/Fibrin Yes -Necrosis Amt Small (1-33%) -Necrotic Tissue Type Adherent Slough -Structure Exposed N/A -Texture (Mechelle-wound Skin Appearance) Assessed Callus -Moisture (Mechelle-wound Skin Appearance Assessed ) -Color (Mechelle-wound Skin Appearance) Assessed -Temperature (Mechelle-wound Skin No Abnormality Appearance) (Pt Warm) -Tenderness on Palpation (Mechelle-wound No Skin Appearance) -Ulcer Cleansing Rinsed/ Irrigated with Saline -Foul Odor after Cleansing No -Anesthetic Used 5% Lidocaine Gel #1 L LAT FOOT -Combined with other wound No -Current Size (cm) - Length 0.5 -Current Size (cm) - Width 0.1 -Current Size (cm) - Depth 0.2 -Total Square Cm 0.05 -Photo Taken No -Tunneling No -Undermining/Tunneling No -Circular Undermining No -Classification - Thickness Full Thickness without Exposed Support Structure -Exudate Amt None Present (0 %) -Wound Margin Distinct, Outline Attached -Granulation Amt Medium (34-66%) -Granulation Quality [employer] -Slough/Fibrin Yes -Necrosis Amt Medium (34-66%) -Necrotic Tissue Type Adherent Slough -Structure Exposed N/A -Texture (Mechelle-wound Skin Appearance) Assessed -Moisture (Mechelle-wound Skin Appearance Assessed ) Dry/Scaly -Color (Mechelle-wound Skin Appearance) Assessed -Temperature (Mechelle-wound Skin No Abnormality Appearance) (Pt Warm) -Tenderness on Palpation (Mechelle-wound No Skin Appearance) -Ulcer Cleansing Rinsed/ Irrigated with Saline -Foul Odor after Cleansing No -Anesthetic Used 5% Lidocaine Gel Musculoskeletal: No Tenderness to Palpation of Joints or Extremities, Muscle Wasting Neurological: - - lack of epicritic sensation via light touch bilateral Psych/Mental Status: Normal Affect, Appropriate Debridement Note Post-Debridement Measurements/Treatment WC - Nurse 2 - General Ulcer CM Notes Start: 12/28/17 13:13 Freq: Status: Active Protocol: Activity Type Activity Date Activity User E-Sign Co-Sign Detail Recorded Client Recorded Date Recorded By Document 12/28/17 14:03 TM [id number] 12/28/17 14:22 TM Document 01/04/18 11:32 TM [id number] 01/04/18 11:37 TM Document 01/04/18 12:33 DV [id number] 01/04/18 12:42 DV 12/28/17 01/04/18 01/04/18 14:03 11:32 12:33 Wound Center Nurse 2 7-RIGHT RING FINGER -Time 12:33 -Correct Patient Yes -Correct Side, Site, Position Yes -Correct Procedure Yes -Procedure Performed Yes -Type of Procedure Debridement -Clinical Debridement Subcutaneous -Post Debridement Size (cm) - Length 0.4 -Post Debridement Size (cm) - Width 1.5 -Post Debridement Size (cm) - Depth 0.2 -Total Square Cm 0.60 -Wound/Ulcer Outcome Not Healed -Ulcer Cleansing Rinsed/ Irrigated with Saline -Foul Odor after Cleansing No -Bioengineered Tissue No -Bleeding Controlled with Pressure -Treatment Response Procedure Tolerated Well 6-RIGHT MIDDLE FINGER -Time 12:34 -Correct Patient Yes -Correct Side, Site, Position Yes -Correct Procedure Yes -Procedure Performed Yes -Type of Procedure Debridement -Clinical Debridement Subcutaneous -Post Debridement Size (cm) - Length 0.3 -Post Debridement Size (cm) - Width 0.9 -Post Debridement Size (cm) - Depth 0.2 -Total Square Cm 0.27 -Wound/Ulcer Outcome Not Healed -Ulcer Cleansing Rinsed/ Irrigated with Saline -Foul Odor after Cleansing No -Bioengineered Tissue No -Bleeding Controlled with Pressure -Treatment Response Procedure Tolerated Well 5-RIGHT INDEX FINGER -Time 12:34 -Correct Patient Yes -Correct Side, Site, Position Yes -Correct Procedure Yes -Procedure Performed Yes -Type of Procedure Debridement -Clinical Debridement Subcutaneous -Post Debridement Size (cm) - Length 0.8 -Post Debridement Size (cm) - Width 0.7 -Post Debridement Size (cm) - Depth 0.1 -Total Square Cm 0.56 -Wound/Ulcer Outcome Not Healed -Ulcer Cleansing Rinsed/ Irrigated with Saline -Foul Odor after Cleansing No -Bioengineered Tissue No -Bleeding Controlled with Pressure -Treatment Response Procedure Tolerated Well #4 R HEEL -Time 14:09 11:32 -Correct Patient Yes Yes -Correct Side, Site, Position Yes Yes -Correct Procedure Yes Yes -Procedure Performed Yes Yes -Type of Procedure Debridement -Clinical Debridement Subcutaneous -Post Debridement Size (cm) - Length 0.6 0 -Post Debridement Size (cm) - Width 0.2 0 -Post Debridement Size (cm) - Depth 0.1 0 -Total Square Cm 0.12 0 -Wound/Ulcer Outcome Not Healed Healed- Epithelialized -Ulcer Cleansing Rinsed/ Rinsed/ Irrigated with Irrigated with Saline Saline -Foul Odor after Cleansing No No -Bioengineered Tissue No No -Topical Lidocaine (%) 4 4 -Bleeding Controlled with Pressure NA -Treatment Response Procedure Procedure Tolerated Well Tolerated Well #3 R 4TH METATARSAL -Time 14:09 11:33 -Correct Patient Yes Yes -Correct Side, Site, Position Yes Yes -Correct Procedure Yes Yes -Procedure Performed Yes Yes -Type of Procedure Debridement Debridement -Clinical Debridement Subcutaneous Subcutaneous -Post Debridement Size (cm) - Length 0.5 0.3 -Post Debridement Size (cm) - Width 0.2 0.2 -Post Debridement Size (cm) - Depth 0.1 0.1 -Total Square Cm 0.10 0.06 -Wound/Ulcer Outcome Not Healed Not Healed -Ulcer Cleansing Rinsed/ Rinsed/ Irrigated with Irrigated with Saline Saline -Foul Odor after Cleansing No No -Bioengineered Tissue No Yes -Type of bioengineered Tissue EPIFIX -Expiration Date 10/17/22 -Product Lot Number [id number] -Percent Used 33 -Topical Lidocaine (%) 4 4 -Bleeding Controlled with Pressure Pressure -Treatment Response Procedure Procedure Tolerated Well Tolerated Well #2 L HEEL -Time 14:09 11:34 -Correct Patient Yes Yes -Correct Side, Site, Position Yes Yes -Correct Procedure Yes Yes -Procedure Performed Yes Yes -Type of Procedure Debridement Debridement -Clinical Debridement Subcutaneous Subcutaneous -Post Debridement Size (cm) - Length 1.1 0.2 -Post Debridement Size (cm) - Width 0.2 1.9 -Post Debridement Size (cm) - Depth 0.2 0.1 -Total Square Cm 0.22 0.38 -Wound/Ulcer Outcome Not Healed Not Healed -Ulcer Cleansing Rinsed/ Rinsed/ Irrigated with Irrigated with Saline Saline -Foul Odor after Cleansing No No -Bioengineered Tissue No Yes -Type of bioengineered Tissue EPIFIX -Expiration Date 10/17/22 -Product Lot Number [id number] -Percent Used 33 -Topical Lidocaine (%) 4 4 -Bleeding Controlled with Pressure Pressure -Treatment Response Procedure Procedure Tolerated Well Tolerated Well #1 L LAT FOOT -Time 14:10 11:35 -Correct Patient Yes Yes -Correct Side, Site, Position Yes Yes -Correct Procedure Yes Yes -Procedure Performed Yes Yes -Type of Procedure Debridement Debridement -Clinical Debridement Subcutaneous Subcutaneous -Post Debridement Size (cm) - Length 0.3 0.3 -Post Debridement Size (cm) - Width 1.3 1.0 -Post Debridement Size (cm) - Depth 0.2 0.1 -Total Square Cm 0.39 0.30 -Wound/Ulcer Outcome Not Healed Not Healed -Ulcer Cleansing Rinsed/ Rinsed/ Irrigated with Irrigated with Saline Saline -Foul Odor after Cleansing No No -Bioengineered Tissue No Yes -Type of bioengineered Tissue EPIFIX -Expiration Date 10/17/22 -Product Lot Number [id number] -Percent Used 33 -Topical Lidocaine (%) 4 4 -Bleeding Controlled with Pressure Pressure -Treatment Response Procedure Procedure Tolerated Well Tolerated Well Pain Scale: 0-10 Numeric Is Patient Pain Free? Yes Yes Wound debrided: sub metatarsal head Laterality: Right Wound Grade/Stage: grade 1 Type of Debridement: Excisional debridement Anesthesia Used: 4% Lidocaine Solution Depth: in the subcutaneous layer Percentage of wound debrided: 100 Instrument Used: #15 blade Tissue Removed: fibrous, devitalized subcutaneous, biofilm, slough Severity: Fat Layer Exposed Amount of bleeding with debridement: Mild Bleeding Controlled with: Pressure Patient tolerated procedure well - Additional Wound Wound debrided: sub metatarsal head (lateral) Laterality: Left Wound Grade/Stage: grade 1 Type of Debridement: Excisional debridement Anesthesia Used: 4% Lidocaine Solution Depth: in the subcutaneous layer Percentage of wound debrided: 100 Instrument Used: #15 blade Tissue Removed: fibrous, devitalized subcutaneous, biofilm, slough Severity: Fat Layer Exposed Amount of bleeding with debridement: Mild Bleeding Controlled with: Pressure Patient tolerated procedure: Patient tolerated procedure well Assessment/Plan Active Problems (Last Reviewed 11/01/17 @ 16:03 by Wilmer Cartwright) Other specified peripheral vascular diseases (Chronic) Ulcer of right foot with fat layer exposed (Chronic) 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 Assessment: Right heel ulcer healed. left heel ulcer healed. Right sub-fourth metatarsal head ulcer with fat exposed - improving. Left sub-fifth metatarsal head ulcer with fat exposed - improving. Diabetes with neuropathy. Xerosis. Hammertoes bilateral. Noncompliance. Right Index , Middle and Ring finger ulcers with Fat layer exposed.(sees Dr. Vance) Plan: I reviewed and discussed his care plan today. Subcutaneous ulceration debridement was performed as noted in the clinical panel. He was reassured there are no signs of infection. He is approved for application of advanced wound care product, epi fix. Verbal consent was obtained and he understands the indications, application process, and anticipated healing time and management. The product was applied to the 2 wound sites according to standard protocol and he tolerated as well. This was secured in place with a wound veil and Steri-Strips. He was advised to keep this clean, dry, and intact until follow-up next week. To continue with strict offloading with surgical shoes. He already has these devices and compliance was discussed. To moisturize the adjacent skin to improve skin integrity to his hands and feet. Updated labs and x-rays were ordered. The following diagnostic data was reviewed: (labs 11/02) Hemoglobin A1c 6.3%, total protein 7.2, albumin 3.7, creatinine 0.97, white blood cell count 10.25, platelet 345. His last progress note from Dr. Avery Escalante was also reviewed from November 01, 2017 in which it was noted he does also have a diagnosis of raynauds disease noted to the fingers and rest less leg syndrome amongst treatment of his other aformentioned chronic comorbidities. He understands he is at risk for continued infection development , delayed healing. He has nonhealing wounds to his hands and would like to seek intervention. Dr. Vance will see him again today for this condition and intervention is greatly appreciated. To maintain and improve diabetic control and nutritional supplementation to optimize healing. To take nutritional supplements as advised to optimize healing; a andrzej prescription was previously provided. To return to clinic in one week or call sooner if problems or concerns. Answered all his questions.
--- NOTE | 2018-01-11 17:57 | PCM.WC.PN ---
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 (3) Diabetes mellitus type 2 with complications Status: Chronic Current Visit: No Code(s): E11.8 - Type 2 diabetes mellitus with unspecified complications Type of Wound Date of Service: 01/11/18 Chief Complaint: Ulcers of his right index, middle and ring fingers. History of Wound: Mr. Espinoza is a 57yo with PMH of Diabetes currently seeing Dr Aparicio for lower extremity ulcers. I was asked to see him for chronic ulcers of his right index, middle and ring fingers. He is a [place] and has chronic upper extremity callus and has had ulcers which have typically healed well however, current episodes of his right middle and ring fingers have persisted despite management with neosporin application. There is no significant callous of his right index finger however, he noted the ulcer sometime in September after he had been in 0 degree weather with exposed hands for a long time. He reports pain in that digit but denies any discharge from the site. He has also been applying Neosporin without any significant improvement. Progress of Wound: Improving finger ulcers. - Physical Exam Vital Signs Temp Pulse Resp BP 99.1 F 97 18 102/59 L 01/11/18 11:05 01/11/18 11:05 01/11/18 11:05 01/11/18 11:05 General: Alert, Oriented x3, Cooperative, No apparent distress HEENT: Atraumatic, Normocephalic Oral: Moist Mucosa Neck: Supple Lungs: Normal air movement Cardiovascular: Regular rate Skin: Ulcer/ Wound Wound Measurements and Assessment WC - Nurse 1 - General Ulcer Measurement Start: 12/28/17 13:13 Freq: Status: Active Protocol: Activity Type Activity Date Activity User E-Sign Co-Sign Detail Recorded Client Recorded Date Recorded By Document 01/11/18 11:05 RB [id number] 01/11/18 11:32 RB 01/11/18 11:05 Wound Center Nurse 1 [Ulcer Assessment] 7-RIGHT RING FINGER -Combined with other wound No -Current Size (cm) - Length 0.1 -Current Size (cm) - Width 1 -Current Size (cm) - Depth 0.1 -Total Square Cm 0.1 -Photo Taken No -Tunneling No -Undermining/Tunneling No -Circular Undermining No -Classification - Thickness Full Thickness without Exposed Support Structure -Change in Wound Grade/Stage No Query Text:If change please identify the Stage/Grade in the comment (ie. S2 G3) -Exudate Amt None Present (0 %) -Wound Margin Distinct, Outline Attached -Granulation Amt Small (1-33%) -Granulation Quality Crosswicks -Slough/Fibrin Yes -Necrosis Amt Medium (34-66%) -Necrotic Tissue Type Adherent Slough -Structure Exposed N/A -Texture (Mechelle-wound Skin Appearance) Assessed -Moisture (Mechelle-wound Skin Appearance Assessed ) -Color (Mechelle-wound Skin Appearance) Assessed -Temperature (Mechelle-wound Skin No Abnormality Appearance) (Pt Warm) -Tenderness on Palpation (Mechelle-wound No Skin Appearance) -Ulcer Cleansing Rinsed/ Irrigated with Saline -Foul Odor after Cleansing No -Anesthetic Used 5% Lidocaine Gel 6-RIGHT MIDDLE FINGER -Combined with other wound No -Current Size (cm) - Length 0.1 -Current Size (cm) - Width 1.2 -Current Size (cm) - Depth 0.1 -Total Square Cm 0.12 -Photo Taken No -Tunneling No -Undermining/Tunneling No -Circular Undermining No -Classification - Thickness Full Thickness without Exposed Support Structure -Exudate Amt None Present (0 %) -Wound Margin Distinct, Outline Attached -Granulation Amt Small (1-33%) -Granulation Quality Crosswicks -Slough/Fibrin Yes -Necrosis Amt Medium (34-66%) -Necrotic Tissue Type Adherent Slough -Structure Exposed N/A -Texture (Mechelle-wound Skin Appearance) Assessed -Moisture (Mechelle-wound Skin Appearance Assessed ) -Color (Mechelle-wound Skin Appearance) Assessed -Temperature (Mechelle-wound Skin No Abnormality Appearance) (Pt Warm) -Tenderness on Palpation (Mechelle-wound No Skin Appearance) -Ulcer Cleansing Rinsed/ Irrigated with Saline -Foul Odor after Cleansing No -Anesthetic Used 5% Lidocaine Gel 5-RIGHT INDEX FINGER -Combined with other wound No -Current Size (cm) - Length 0.8 -Current Size (cm) - Width 0.7 -Current Size (cm) - Depth 0.1 -Total Square Cm 0.56 -Photo Taken No -Epithelialization None Present -Tunneling No -Undermining/Tunneling No -Circular Undermining No -Classification - Thickness Unclassifiable (Eschar Covered ) -Exudate Amt Small (1-33%) -Exudate Type Serosanguineous -Wound Margin Distinct, Outline Attached -Granulation Amt Medium (34-66%) -Granulation Quality Crosswicks -Slough/Fibrin Yes -Necrosis Amt Small (1-33%) -Necrotic Tissue Type Adherent Slough -Structure Exposed N/A -Texture (Mechelle-wound Skin Appearance) Assessed -Moisture (Mechelle-wound Skin Appearance Assessed ) -Color (Mechelle-wound Skin Appearance) Assessed -Temperature (Mechelle-wound Skin No Abnormality Appearance) (Pt Warm) -Tenderness on Palpation (Mechelle-wound No Skin Appearance) -Ulcer Cleansing Rinsed/ Irrigated with Saline -Foul Odor after Cleansing No -Anesthetic Used 5% Lidocaine Gel #3 R 4TH METATARSAL -Combined with other wound No -Current Size (cm) - Length 0.6 -Current Size (cm) - Width 0.3 -Current Size (cm) - Depth 0.2 -Total Square Cm 0.18 -Photo Taken No -Epithelialization None Present -Tunneling No -Undermining/Tunneling No -Circular Undermining No -Classification - Thickness Full Thickness without Exposed Support Structure -Exudate Amt None Present (0 %) -Wound Margin Distinct, Outline Attached -Granulation Amt Medium (34-66%) -Granulation Quality Crosswicks -Slough/Fibrin Yes -Necrosis Amt Medium (34-66%) -Necrotic Tissue Type Adherent Slough -Structure Exposed N/A -Texture (Mechelle-wound Skin Appearance) Assessed Callus -Moisture (Mechelle-wound Skin Appearance Assessed ) -Color (Mechelle-wound Skin Appearance) Assessed -Temperature (Mechelle-wound Skin No Abnormality Appearance) (Pt Warm) -Tenderness on Palpation (Mechelle-wound No Skin Appearance) -Ulcer Cleansing Rinsed/ Irrigated with Saline -Foul Odor after Cleansing No -Anesthetic Used 5% Lidocaine Gel #2 L HEEL -Combined with other wound No -Current Size (cm) - Length 0.5 -Current Size (cm) - Width 0.1 -Current Size (cm) - Depth 0.1 -Total Square Cm 0.05 -Photo Taken No -Tunneling No -Undermining/Tunneling No -Circular Undermining No -Classification - Thickness Full Thickness without Exposed Support Structure -Exudate Amt None Present (0 %) -Wound Margin Distinct, Outline Attached -Granulation Amt Medium (34-66%) -Granulation Quality Crosswicks -Slough/Fibrin Yes -Necrosis Amt Small (1-33%) -Necrotic Tissue Type Adherent Slough -Structure Exposed N/A -Texture (Mechelle-wound Skin Appearance) Assessed Callus -Moisture (Mechelle-wound Skin Appearance Assessed ) -Color (Mechelle-wound Skin Appearance) Assessed -Temperature (Mechelle-wound Skin No Abnormality Appearance) (Pt Warm) -Tenderness on Palpation (Mechelle-wound No Skin Appearance) -Ulcer Cleansing Rinsed/ Irrigated with Saline -Foul Odor after Cleansing No -Anesthetic Used 5% Lidocaine Gel #1 L LAT FOOT -Combined with other wound No -Current Size (cm) - Length 0.5 -Current Size (cm) - Width 0.1 -Current Size (cm) - Depth 0.2 -Total Square Cm 0.05 -Photo Taken No -Tunneling No -Undermining/Tunneling No -Circular Undermining No -Classification - Thickness Full Thickness without Exposed Support Structure -Exudate Amt None Present (0 %) -Wound Margin Distinct, Outline Attached -Granulation Amt Medium (34-66%) -Granulation Quality Crosswicks -Slough/Fibrin Yes -Necrosis Amt Medium (34-66%) -Necrotic Tissue Type Adherent Slough -Structure Exposed N/A -Texture (Mechelle-wound Skin Appearance) Assessed -Moisture (Mechelel-wound Skin Appearance Assessed ) Dry/Scaly -Color (Mechelle-wound Skin Appearance) Assessed -Temperature (Mechelle-wound Skin No Abnormality Appearance) (Pt Warm) -Tenderness on Palpation (Mechelle-wound No Skin Appearance) -Ulcer Cleansing Rinsed/ Irrigated with Saline -Foul Odor after Cleansing No -Anesthetic Used 5% Lidocaine Gel WC - Nurse 2 - General Ulcer CM Notes Start: 12/28/17 13:13 Freq: Status: Active Protocol: Activity Type Activity Date Activity User E-Sign Co-Sign Detail Recorded Client Recorded Date Recorded By Document 01/11/18 12:08 TM [id number] 01/11/18 12:12 TM Document 01/11/18 12:25 DV [id number] 01/11/18 12:40 DV 01/11/18 01/11/18 12:08 12:25 Wound Center Nurse 2 [Procedure/Treatment] 7-RIGHT RING FINGER -Time 12:25 -Correct Patient Yes -Correct Side, Site, Position Yes -Correct Procedure Yes -Procedure Performed Yes -Type of Procedure Debridement -Clinical Debridement Subcutaneous -Post Debridement Size (cm) - Length 0.2 -Post Debridement Size (cm) - Width 1.3 -Post Debridement Size (cm) - Depth 0.1 -Total Square Cm 0.26 -Wound/Ulcer Outcome Not Healed -Ulcer Cleansing Rinsed/ Irrigated with Saline -Foul Odor after Cleansing No -Bioengineered Tissue No -Bleeding Controlled with NA 6-RIGHT MIDDLE FINGER -Time 12:26 -Correct Patient Yes -Correct Side, Site, Position Yes -Correct Procedure Yes -Procedure Performed Yes -Type of Procedure Debridement -Clinical Debridement Subcutaneous -Post Debridement Size (cm) - Length 0.3 -Post Debridement Size (cm) - Width 0.9 -Post Debridement Size (cm) - Depth 0.1 -Total Square Cm 0.27 -Wound/Ulcer Outcome Not Healed -Ulcer Cleansing Rinsed/ Irrigated with Saline -Foul Odor after Cleansing No -Bioengineered Tissue No -Bleeding Controlled with Pressure -Treatment Response Procedure Tolerated Well 5-RIGHT INDEX FINGER -Time 12:26 -Correct Patient Yes -Correct Side, Site, Position Yes -Correct Procedure Yes -Procedure Performed Yes -Type of Procedure Debridement -Clinical Debridement Subcutaneous -Post Debridement Size (cm) - Length 0.6 -Post Debridement Size (cm) - Width 0.9 -Post Debridement Size (cm) - Depth 0.1 -Total Square Cm 0.54 -Wound/Ulcer Outcome Not Healed -Ulcer Cleansing Rinsed/ Irrigated with Saline -Foul Odor after Cleansing No -Bioengineered Tissue No -Bleeding Controlled with Pressure -Treatment Response Procedure Tolerated Well #3 R 4TH METATARSAL -Time 12:08 -Correct Patient Yes -Correct Side, Site, Position Yes -Correct Procedure Yes -Procedure Performed Yes -Type of Procedure Debridement -Clinical Debridement Subcutaneous -Post Debridement Size (cm) - Length 0.7 -Post Debridement Size (cm) - Width 0.4 -Post Debridement Size (cm) - Depth 0.2 -Total Square Cm 0.28 -Wound/Ulcer Outcome Not Healed -Ulcer Cleansing Rinsed/ Irrigated with Saline -Foul Odor after Cleansing No -Bioengineered Tissue Yes -Type of bioengineered Tissue EPIFIX -Expiration Date 10/17/22 -Product Lot Number [id number] -Percent Used 50 -Saline Lot Number [id number] -Topical Lidocaine (%) 5 -Bleeding Controlled with Pressure -Treatment Response Procedure Tolerated Well #2 L HEEL -Time 12:10 -Correct Patient Yes -Correct Side, Site, Position Yes -Correct Procedure Yes -Procedure Performed Yes -Post Debridement Size (cm) - Length 0 -Post Debridement Size (cm) - Width 0 -Post Debridement Size (cm) - Depth 0 -Total Square Cm 0 -Wound/Ulcer Outcome Healed- Epithelialized -Ulcer Cleansing Rinsed/ Irrigated with Saline -Foul Odor after Cleansing No -Bioengineered Tissue No -Bleeding Controlled with NA -Treatment Response Procedure Tolerated Well #1 L LAT FOOT -Time 12:11 -Correct Patient Yes -Correct Side, Site, Position Yes -Correct Procedure Yes -Procedure Performed Yes -Type of Procedure Debridement -Clinical Debridement Subcutaneous -Post Debridement Size (cm) - Length 0.6 -Post Debridement Size (cm) - Width 0.2 -Post Debridement Size (cm) - Depth 0.2 -Total Square Cm 0.12 -Wound/Ulcer Outcome Not Healed -Ulcer Cleansing Rinsed/ Irrigated with Saline -Foul Odor after Cleansing No -Bioengineered Tissue Yes -Type of bioengineered Tissue EPIFIX -Expiration Date 10/17/22 -Product Lot Number [id number] -Percent Used 50 -Saline Lot Number [id number] -Topical Lidocaine (%) 5 -Bleeding Controlled with Pressure -Treatment Response Procedure Tolerated Well [See Physician Procedure note for Specifics] Pain Scale: 0-10 Numeric [Pain] -Is Patient Pain Free? Yes Yes Neurological: Cranial nerves II-XII grossly intact Psych/Mental Status: Normal Affect Debridement Note Post-Debridement Measurements/Treatment WC - Nurse 2 - General Ulcer CM Notes Start: 12/28/17 13:13 Freq: Status: Active Protocol: Activity Type Activity Date Activity User E-Sign Co-Sign Detail Recorded Client Recorded Date Recorded By Document 12/28/17 14:03 TM [id number] 12/28/17 14:22 TM Document 01/04/18 11:32 TM [id number] 01/04/18 11:37 Document 01/04/18 12:33 DV [id number] 01/04/18 12:42 DV Document 01/11/18 12:08 TM [id number] 01/11/18 12:12 Document 01/11/18 12:25 DV [id number] 01/11/18 12:40 DV 12/28/17 01/04/18 01/04/18 14:03 11:32 12:33 Wound Center Nurse 2 7-RIGHT RING FINGER -Time 12:33 -Correct Patient Yes -Correct Side, Site, Position Yes -Correct Procedure Yes -Procedure Performed Yes -Type of Procedure Debridement -Clinical Debridement Subcutaneous -Post Debridement Size (cm) - Length 0.4 -Post Debridement Size (cm) - Width 1.5 -Post Debridement Size (cm) - Depth 0.2 -Total Square Cm 0.60 -Wound/Ulcer Outcome Not Healed -Ulcer Cleansing Rinsed/ Irrigated with Saline -Foul Odor after Cleansing No -Bioengineered Tissue No -Bleeding Controlled with Pressure -Treatment Response Procedure Tolerated Well 6-RIGHT MIDDLE FINGER -Time 12:34 -Correct Patient Yes -Correct Side, Site, Position Yes -Correct Procedure Yes -Procedure Performed Yes -Type of Procedure Debridement -Clinical Debridement Subcutaneous -Post Debridement Size (cm) - Length 0.3 -Post Debridement Size (cm) - Width 0.9 -Post Debridement Size (cm) - Depth 0.2 -Total Square Cm 0.27 -Wound/Ulcer Outcome Not Healed -Ulcer Cleansing Rinsed/ Irrigated with Saline -Foul Odor after Cleansing No -Bioengineered Tissue No -Bleeding Controlled with Pressure -Treatment Response Procedure Tolerated Well 5-RIGHT INDEX FINGER -Time 12:34 -Correct Patient Yes -Correct Side, Site, Position Yes -Correct Procedure Yes -Procedure Performed Yes -Type of Procedure Debridement -Clinical Debridement Subcutaneous -Post Debridement Size (cm) - Length 0.8 -Post Debridement Size (cm) - Width 0.7 -Post Debridement Size (cm) - Depth 0.1 -Total Square Cm 0.56 -Wound/Ulcer Outcome Not Healed -Ulcer Cleansing Rinsed/ Irrigated with Saline -Foul Odor after Cleansing No -Bioengineered Tissue No -Bleeding Controlled with Pressure -Treatment Response Procedure Tolerated Well #4 R HEEL -Time 14:09 11:32 -Correct Patient Yes Yes -Correct Side, Site, Position Yes Yes -Correct Procedure Yes Yes -Procedure Performed Yes Yes -Type of Procedure Debridement -Clinical Debridement Subcutaneous -Post Debridement Size (cm) - Length 0.6 0 -Post Debridement Size (cm) - Width 0.2 0 -Post Debridement Size (cm) - Depth 0.1 0 -Total Square Cm 0.12 0 -Wound/Ulcer Outcome Not Healed Healed- Epithelialized -Ulcer Cleansing Rinsed/ Rinsed/ Irrigated with Irrigated with Saline Saline -Foul Odor after Cleansing No No -Bioengineered Tissue No No -Topical Lidocaine (%) 4 4 -Bleeding Controlled with Pressure NA -Treatment Response Procedure Procedure Tolerated Well Tolerated Well #3 R 4TH METATARSAL -Time 14: 11:33 -Correct Patient Yes Yes -Correct Side, Site, Position Yes Yes -Correct Procedure Yes Yes -Procedure Performed Yes Yes -Type of Procedure Debridement Debridement -Clinical Debridement Subcutaneous Subcutaneous -Post Debridement Size (cm) - Length 0.5 0.3 -Post Debridement Size (cm) - Width 0.2 0.2 -Post Debridement Size (cm) - Depth 0.1 0.1 -Total Square Cm 0.10 0.06 -Wound/Ulcer Outcome Not Healed Not Healed -Ulcer Cleansing Rinsed/ Rinsed/ Irrigated with Irrigated with Saline Saline -Foul Odor after Cleansing No No -Bioengineered Tissue No Yes -Type of bioengineered Tissue EPIFIX -Expiration Date 10/17/22 -Product Lot Number [id number] -Percent Used 33 -Saline Lot Number -Topical Lidocaine (%) 4 4 -Bleeding Controlled with Pressure Pressure -Treatment Response Procedure Procedure Tolerated Well Tolerated Well #2 L HEEL -Time 14: 11:34 -Correct Patient Yes Yes -Correct Side, Site, Position Yes Yes -Correct Procedure Yes Yes -Procedure Performed Yes Yes -Type of Procedure Debridement Debridement -Clinical Debridement Subcutaneous Subcutaneous -Post Debridement Size (cm) - Length 1.1 0.2 -Post Debridement Size (cm) - Width 0.2 1.9 -Post Debridement Size (cm) - Depth 0.2 0.1 -Total Square Cm 0.22 0.38 -Wound/Ulcer Outcome Not Healed Not Healed -Ulcer Cleansing Rinsed/ Rinsed/ Irrigated with Irrigated with Saline Saline -Foul Odor after Cleansing No No -Bioengineered Tissue No Yes -Type of bioengineered Tissue EPIFIX -Expiration Date 10/17/22 -Product Lot Number [id number] -Percent Used 33 -Topical Lidocaine (%) 4 4 -Bleeding Controlled with Pressure Pressure -Treatment Response Procedure Procedure Tolerated Well Tolerated Well #1 L LAT FOOT -Time 14:10 11:35 -Correct Patient Yes Yes -Correct Side, Site, Position Yes Yes -Correct Procedure Yes Yes -Procedure Performed Yes Yes -Type of Procedure Debridement Debridement -Clinical Debridement Subcutaneous Subcutaneous -Post Debridement Size (cm) - Length 0.3 0.3 -Post Debridement Size (cm) - Width 1.3 1.0 -Post Debridement Size (cm) - Depth 0.2 0.1 -Total Square Cm 0.39 0.30 -Wound/Ulcer Outcome Not Healed Not Healed -Ulcer Cleansing Rinsed/ Rinsed/ Irrigated with Irrigated with Saline Saline -Foul Odor after Cleansing No No -Bioengineered Tissue No Yes -Type of bioengineered Tissue EPIFIX -Expiration Date 10/17/22 -Product Lot Number [id number] -Percent Used 33 -Saline Lot Number -Topical Lidocaine (%) 4 4 -Bleeding Controlled with Pressure Pressure -Treatment Response Procedure Procedure Tolerated Well Tolerated Well Pain Scale: 0-10 Numeric Is Patient Pain Free? Yes Yes 01/11/18 01/11/18 12:08 12:25 Wound Center Nurse 2 7-RIGHT RING FINGER -Time 12:25 -Correct Patient Yes -Correct Side, Site, Position Yes -Correct Procedure Yes -Procedure Performed Yes -Type of Procedure Debridement -Clinical Debridement Subcutaneous -Post Debridement Size (cm) - Length 0.2 -Post Debridement Size (cm) - Width 1.3 -Post Debridement Size (cm) - Depth 0.1 -Total Square Cm 0.26 -Wound/Ulcer Outcome Not Healed -Ulcer Cleansing Rinsed/ Irrigated with Saline -Foul Odor after Cleansing No -Bioengineered Tissue No -Bleeding Controlled with NA -Treatment Response 6-RIGHT MIDDLE FINGER -Time 12:26 -Correct Patient Yes -Correct Side, Site, Position Yes -Correct Procedure Yes -Procedure Performed Yes -Type of Procedure Debridement -Clinical Debridement Subcutaneous -Post Debridement Size (cm) - Length 0.3 -Post Debridement Size (cm) - Width 0.9 -Post Debridement Size (cm) - Depth 0.1 -Total Square Cm 0.27 -Wound/Ulcer Outcome Not Healed -Ulcer Cleansing Rinsed/ Irrigated with Saline -Foul Odor after Cleansing No -Bioengineered Tissue No -Bleeding Controlled with Pressure -Treatment Response Procedure Tolerated Well 5-RIGHT INDEX FINGER -Time 12:26 -Correct Patient Yes -Correct Side, Site, Position Yes -Correct Procedure Yes -Procedure Performed Yes -Type of Procedure Debridement -Clinical Debridement Subcutaneous -Post Debridement Size (cm) - Length 0.6 -Post Debridement Size (cm) - Width 0.9 -Post Debridement Size (cm) - Depth 0.1 -Total Square Cm 0.54 -Wound/Ulcer Outcome Not Healed -Ulcer Cleansing Rinsed/ Irrigated with Saline -Foul Odor after Cleansing No -Bioengineered Tissue No -Bleeding Controlled with Pressure -Treatment Response Procedure Tolerated Well #4 R HEEL -Time -Correct Patient -Correct Side, Site, Position -Correct Procedure -Procedure Performed -Type of Procedure -Clinical Debridement -Post Debridement Size (cm) - Length -Post Debridement Size (cm) - Width -Post Debridement Size (cm) - Depth -Total Square Cm -Wound/Ulcer Outcome -Ulcer Cleansing -Foul Odor after Cleansing -Bioengineered Tissue -Topical Lidocaine (%) -Bleeding Controlled with -Treatment Response #3 R 4TH METATARSAL -Time 12:08 -Correct Patient Yes -Correct Side, Site, Position Yes -Correct Procedure Yes -Procedure Performed Yes -Type of Procedure Debridement -Clinical Debridement Subcutaneous -Post Debridement Size (cm) - Length 0.7 -Post Debridement Size (cm) - Width 0.4 -Post Debridement Size (cm) - Depth 0.2 -Total Square Cm 0.28 -Wound/Ulcer Outcome Not Healed -Ulcer Cleansing Rinsed/ Irrigated with Saline -Foul Odor after Cleansing No -Bioengineered Tissue Yes -Type of bioengineered Tissue EPIFIX -Expiration Date 10/17/22 -Product Lot Number [id number] -Percent Used 50 -Saline Lot Number [id number] -Topical Lidocaine (%) 5 -Bleeding Controlled with Pressure -Treatment Response Procedure Tolerated Well #2 L HEEL -Time 12:10 -Correct Patient Yes -Correct Side, Site, Position Yes -Correct Procedure Yes -Procedure Performed Yes -Type of Procedure -Clinical Debridement -Post Debridement Size (cm) - Length 0 -Post Debridement Size (cm) - Width 0 -Post Debridement Size (cm) - Depth 0 -Total Square Cm 0 -Wound/Ulcer Outcome Healed- Epithelialized -Ulcer Cleansing Rinsed/ Irrigated with Saline -Foul Odor after Cleansing No -Bioengineered Tissue No -Type of bioengineered Tissue -Expiration Date -Product Lot Number -Percent Used -Topical Lidocaine (%) -Bleeding Controlled with NA -Treatment Response Procedure Tolerated Well #1 L LAT FOOT -Time 12:11 -Correct Patient Yes -Correct Side, Site, Position Yes -Correct Procedure Yes -Procedure Performed Yes -Type of Procedure Debridement -Clinical Debridement Subcutaneous -Post Debridement Size (cm) - Length 0.6 -Post Debridement Size (cm) - Width 0.2 -Post Debridement Size (cm) - Depth 0.2 -Total Square Cm 0.12 -Wound/Ulcer Outcome Not Healed -Ulcer Cleansing Rinsed/ Irrigated with Saline -Foul Odor after Cleansing No -Bioengineered Tissue Yes -Type of bioengineered Tissue EPIFIX -Expiration Date 10/17/22 -Product Lot Number [id number] -Percent Used 50 -Saline Lot Number [id number] -Topical Lidocaine (%) 5 -Bleeding Controlled with Pressure -Treatment Response Procedure Tolerated Well Pain Scale: 0-10 Numeric Is Patient Pain Free? Yes Yes Wound debrided: right Index Finger Wound Grade/Stage: Stage II Type of Debridement: Excisional debridement Anesthesia Used: 4% Lidocaine Solution Depth: Down to and including healthy tissue, in the subcutaneous layer Percentage of wound debrided: 100 Instrument Used: 5mm curette, #15 blade Tissue Removed: Slough and devitalized tissue Severity: Fat Layer Exposed Amount of bleeding with debridement: Mild Bleeding Controlled with: Pressure Patient tolerated procedure well - Additional Wound Wound debrided: Right middle finger Wound Grade/Stage: Stage II Type of Debridement: Excisional debridement Anesthesia Used: 4% Lidocaine Solution Depth: Down to and including healthy tissue, in the subcutaneous layer Percentage of wound debrided: 100 Instrument Used: 5mm curette Tissue Removed: Slough, callus and devitalized tissue Severity: Fat Layer Exposed Amount of bleeding with debridement: Mild Bleeding Controlled with: Pressure Patient tolerated procedure: Patient tolerated procedure well - Additional Wound Wound debrided: Right ring finger Wound Grade/Stage: Stage II Type of Debridement: Excisional debridement Anesthesia Used: 4% Lidocaine Solution Depth: Down to and including healthy tissue, in the subcutaneous layer Percentage of wound debrided: 100 Instrument Used: 5mm curette Tissue Removed: Slough, callus and devitalized tissue Severity: Fat Layer Exposed Amount of bleeding with debridement: Mild Bleeding Controlled with: Pressure Patient tolerated procedure: Patient tolerated procedure well Assessment/Plan Active Problems (Last Reviewed 11/01/17 @ 16:03 by Wilmer Cartwright) Other specified peripheral vascular diseases (Chronic) Ulcer of right foot with fat layer exposed (Chronic) 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 Assessment: Right heel ulcer healed. left heel ulcer healed. Right sub-fourth metatarsal head ulcer with fat exposed - improving. Left sub-fifth metatarsal head ulcer with fat exposed - improving. Diabetes with neuropathy. Xerosis. Hammertoes bilateral. Noncompliance. Right Index , Middle and Ring finger ulcers with Fat layer exposed.(sees Dr. Vance) Plan: Right finger also appear to be improving/stable. He did receive a prescription for nifedipine standard release for right index finger ulcer which is possibly due to vasoconstriction as a result of his Raynaud's. Debridement done of all 3 ulcers as documented above. Procedure was well-tolerated. Continue Tegan daily to all ulcers. Advised to limit tightness of dressing over the right index finger. Continue nifedipine extended release 30 mg daily. Continue increased protein in diet/protein supplements. All other wound care measures as discussed earlier with Dr. Aparicio. 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 This note was generated with [employer] software. It may contain incorrect words, spelling, and punctuation that were not noted in checking the note before signing.
--- NOTE | 2018-01-11 18:06 | PN.PCM_ITS ---
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 (3) Diabetes mellitus type 2 with complications Status: Chronic Current Visit: No Code(s): E11.8 - Type 2 diabetes mellitus with unspecified complications Type of Wound Date of Service: 01/11/18 Chief Complaint: Ulcers of his right index, middle and ring fingers. History of Wound: Mr. Espinoza is a 57yo with PMH of Diabetes currently seeing Dr Aparicio for lower extremity ulcers. I was asked to see him for chronic ulcers of his right index, middle and ring fingers. He is a [place] and has chronic upper extremity callus and has had ulcers which have typically healed well however, current episodes of his right middle and ring fingers have persisted despite management with neosporin application. There is no significant callous of his right index finger however, he noted the ulcer sometime in September after he had been in 0 degree weather with exposed hands for a long time. He reports pain in that digit but denies any discharge from the site. He has also been applying Neosporin without any significant improvement. Progress of Wound: Improving finger ulcers. - Physical Exam Vital Signs Temp Pulse Resp BP 99.1 F 97 18 102/59 L 01/11/18 11:05 01/11/18 11:05 01/11/18 11:05 01/11/18 11:05 General: Alert, Oriented x3, Cooperative, No apparent distress HEENT: Atraumatic, Normocephalic Oral: Moist Mucosa Neck: Supple Lungs: Normal air movement Cardiovascular: Regular rate Skin: Ulcer/ Wound Wound Measurements and Assessment WC - Nurse 1 - General Ulcer Measurement Start: 12/28/17 13:13 Freq: Status: Active Protocol: Activity Type Activity Date Activity User E-Sign Co-Sign Detail Recorded Client Recorded Date Recorded By Document 01/11/18 11:05 RB [id number] 01/11/18 11:32 RB 01/11/18 11:05 Wound Center Nurse 1 [Ulcer Assessment] 7-RIGHT RING FINGER -Combined with other wound No -Current Size (cm) - Length 0.1 -Current Size (cm) - Width 1 -Current Size (cm) - Depth 0.1 -Total Square Cm 0.1 -Photo Taken No -Tunneling No -Undermining/Tunneling No -Circular Undermining No -Classification - Thickness Full Thickness without Exposed Support Structure -Change in Wound Grade/Stage No Query Text:If change please identify the Stage/Grade in the comment (ie. S2 G3) -Exudate Amt None Present (0 %) -Wound Margin Distinct, Outline Attached -Granulation Amt Small (1-33%) -Granulation Quality [place] -Slough/Fibrin Yes -Necrosis Amt Medium (34-66%) -Necrotic Tissue Type Adherent Slough -Structure Exposed N/A -Texture (Mechelle-wound Skin Appearance) Assessed -Moisture (Mechelle-wound Skin Appearance Assessed ) -Color (Mechelle-wound Skin Appearance) Assessed -Temperature (Mechelle-wound Skin No Abnormality Appearance) (Pt Warm) -Tenderness on Palpation (Mechelle-wound No Skin Appearance) -Ulcer Cleansing Rinsed/ Irrigated with Saline -Foul Odor after Cleansing No -Anesthetic Used 5% Lidocaine Gel 6-RIGHT MIDDLE FINGER -Combined with other wound No -Current Size (cm) - Length 0.1 -Current Size (cm) - Width 1.2 -Current Size (cm) - Depth 0.1 -Total Square Cm 0.12 -Photo Taken No -Tunneling No -Undermining/Tunneling No -Circular Undermining No -Classification - Thickness Full Thickness without Exposed Support Structure -Exudate Amt None Present (0 %) -Wound Margin Distinct, Outline Attached -Granulation Amt Small (1-33%) -Granulation Quality [place] -Slough/Fibrin Yes -Necrosis Amt Medium (34-66%) -Necrotic Tissue Type Adherent Slough -Structure Exposed N/A -Texture (Mechelle-wound Skin Appearance) Assessed -Moisture (Mechelle-wound Skin Appearance Assessed ) -Color (Mechelle-wound Skin Appearance) Assessed -Temperature ([place]helle-wound Skin No Abnormality Appearance) (Pt Warm) -Tenderness on Palpation (Mechelle-wound No Skin Appearance) -Ulcer Cleansing Rinsed/ Irrigated with Saline -Foul Odor after Cleansing No -Anesthetic Used 5% Lidocaine Gel 5-RIGHT INDEX FINGER -Combined with other wound No -Current Size (cm) - Length 0.8 -Current Size (cm) - Width 0.7 -Current Size (cm) - Depth 0.1 -Total Square Cm 0.56 -Photo Taken No -Epithelialization None Present -Tunneling No -Undermining/Tunneling No -Circular Undermining No -Classification - Thickness Unclassifiable (Eschar Covered ) -Exudate Amt Small (1-33%) -Exudate Type Serosanguineous -Wound Margin Distinct, Outline Attached -Granulation Amt Medium (34-66%) -Granulation Quality [place] -Slough/Fibrin Yes -Necrosis Amt Small (1-33%) -Necrotic Tissue Type Adherent Slough -Structure Exposed N/A -Texture (Mechelle-wound Skin Appearance) Assessed -Moisture (Mechelle-wound Skin Appearance Assessed ) -Color (Mechelle-wound Skin Appearance) Assessed -Temperature (Mechelle-wound Skin No Abnormality Appearance) (Pt Warm) -Tenderness on Palpation (Mechelle-wound No Skin Appearance) -Ulcer Cleansing Rinsed/ Irrigated with Saline -Foul Odor after Cleansing No -Anesthetic Used 5% Lidocaine Gel #3 R 4TH METATARSAL -Combined with other wound No -Current Size (cm) - Length 0.6 -Current Size (cm) - Width 0.3 -Current Size (cm) - Depth 0.2 -Total Square Cm 0.18 -Photo Taken No -Epithelialization None Present -Tunneling No -Undermining/Tunneling No -Circular Undermining No -Classification - Thickness Full Thickness without Exposed Support Structure -Exudate Amt None Present (0 %) -Wound Margin Distinct, Outline Attached -Granulation Amt Medium (34-66%) -Granulation Quality [place] -Slough/Fibrin Yes -Necrosis Amt Medium (34-66%) -Necrotic Tissue Type Adherent Slough -Structure Exposed N/A -Texture (Mechelle-wound Skin Appearance) Assessed Callus -Moisture (Mechelle-wound Skin Appearance Assessed ) -Color (M[place]helle-wound Skin Appearance) Assessed -Temperature ([place]helle-wound Skin No Abnormality Appearance) (Pt Warm) -Tenderness on Palpation (Mechelle-wound No Skin Appearance) -Ulcer Cleansing Rinsed/ Irrigated with Saline -Foul Odor after Cleansing No -Anesthetic Used 5% Lidocaine Gel #2 L HEEL -Combined with other wound No -Current Size (cm) - Length 0.5 -Current Size (cm) - Width 0.1 -Current Size (cm) - Depth 0.1 -Total Square Cm 0.05 -Photo Taken No -Tunneling No -Undermining/Tunneling No -Circular Undermining No -Classification - Thickness Full Thickness without Exposed Support Structure -Exudate Amt None Present (0 %) -Wound Margin Distinct, Outline Attached -Granulation Amt Medium (34-66%) -Granulation Quality [place] -Slough/Fibrin Yes -Necrosis Amt Small (1-33%) -Necrotic Tissue Type Adherent Slough -Structure Exposed N/A -Texture (Mechelle-wound Skin Appearance) Assessed Callus -Moisture (M[place]helle-wound Skin Appearance Assessed ) -Color (M[place]helle-wound Skin Appearance) Assessed -Temperature ([place]helle-wound Skin No Abnormality Appearance) (Pt Warm) -Tenderness on Palpation (Mechelle-wound No Skin Appearance) -Ulcer Cleansing Rinsed/ Irrigated with Saline -Foul Odor after Cleansing No -Anesthetic Used 5% Lidocaine Gel #1 L LAT FOOT -Combined with other wound No -Current Size (cm) - Length 0.5 -Current Size (cm) - Width 0.1 -Current Size (cm) - Depth 0.2 -Total Square Cm 0.05 -Photo Taken No -Tunneling No -Undermining/Tunneling No -Circular Undermining No -Classification - Thickness Full Thickness without Exposed Support Structure -Exudate Amt None Present (0 %) -Wound Margin Distinct, Outline Attached -Granulation Amt Medium (34-66%) -Granulation Quality [place] -Slough/Fibrin Yes -Necrosis Amt Medium (34-66%) -Necrotic Tissue Type Adherent Slough -Structure Exposed N/A -Texture (Mechelle-wound Skin Appearance) Assessed -Moisture (Mechelle-wound Skin Appearance Assessed ) Dry/Scaly -Color (Mechelle-wound Skin Appearance) Assessed -Temperature ([place]helle-wound Skin No Abnormality Appearance) (Pt Warm) -Tenderness on Palpation (Mechelle-wound No Skin Appearance) -Ulcer Cleansing Rinsed/ Irrigated with Saline -Foul Odor after Cleansing No -Anesthetic Used 5% Lidocaine Gel WC - Nurse 2 - General Ulcer CM Notes Start: 12/28/17 13:13 Freq: Status: Active Protocol: Activity Type Activity Date Activity User E-Sign Co-Sign Detail Recorded Client Recorded Date Recorded By Document 01/11/18 12:08 TM [id number] 01/11/18 12:12 TM Document 01/11/18 12:25 DV [id number] 01/11/18 12:40 DV 01/11/18 01/11/18 12:08 12:25 Wound Center Nurse 2 [Procedure/Treatment] 7-RIGHT RING FINGER -Time 12:25 -Correct Patient Yes -Correct Side, Site, Position Yes -Correct Procedure Yes -Procedure Performed Yes -Type of Procedure Debridement -Clinical Debridement Subcutaneous -Post Debridement Size (cm) - Length 0.2 -Post Debridement Size (cm) - Width 1.3 -Post Debridement Size (cm) - Depth 0.1 -Total Square Cm 0.26 -Wound/Ulcer Outcome Not Healed -Ulcer Cleansing Rinsed/ Irrigated with Saline -Foul Odor after Cleansing No -Bioengineered Tissue No -Bleeding Controlled with NA 6-RIGHT MIDDLE FINGER -Time 12:26 -Correct Patient Yes -Correct Side, Site, Position Yes -Correct Procedure Yes -Procedure Performed Yes -Type of Procedure Debridement -Clinical Debridement Subcutaneous -Post Debridement Size (cm) - Length 0.3 -Post Debridement Size (cm) - Width 0.9 -Post Debridement Size (cm) - Depth 0.1 -Total Square Cm 0.27 -Wound/Ulcer Outcome Not Healed -Ulcer Cleansing Rinsed/ Irrigated with Saline -Foul Odor after Cleansing No -Bioengineered Tissue No -Bleeding Controlled with Pressure -Treatment Response Procedure Tolerated Well 5-RIGHT INDEX FINGER -Time 12:26 -Correct Patient Yes -Correct Side, Site, Position Yes -Correct Procedure Yes -Procedure Performed Yes -Type of Procedure Debridement -Clinical Debridement Subcutaneous -Post Debridement Size (cm) - Length 0.6 -Post Debridement Size (cm) - Width 0.9 -Post Debridement Size (cm) - Depth 0.1 -Total Square Cm 0.54 -Wound/Ulcer Outcome Not Healed -Ulcer Cleansing Rinsed/ Irrigated with Saline -Foul Odor after Cleansing No -Bioengineered Tissue No -Bleeding Controlled with Pressure -Treatment Response Procedure Tolerated Well #3 R 4TH METATARSAL -Time 12:08 -Correct Patient Yes -Correct Side, Site, Position Yes -Correct Procedure Yes -Procedure Performed Yes -Type of Procedure Debridement -Clinical Debridement Subcutaneous -Post Debridement Size (cm) - Length 0.7 -Post Debridement Size (cm) - Width 0.4 -Post Debridement Size (cm) - Depth 0.2 -Total Square Cm 0.28 -Wound/Ulcer Outcome Not Healed -Ulcer Cleansing Rinsed/ Irrigated with Saline -Foul Odor after Cleansing No -Bioengineered Tissue Yes -Type of bioengineered Tissue EPIFIX -Expiration Date 10/17/22 -Product Lot Number [id number] -Percent Used 50 -Saline Lot Number [id number] -Topical Lidocaine (%) 5 -Bleeding Controlled with Pressure -Treatment Response Procedure Tolerated Well #2 L HEEL -Time 12:10 -Correct Patient Yes -Correct Side, Site, Position Yes -Correct Procedure Yes -Procedure Performed Yes -Post Debridement Size (cm) - Length 0 -Post Debridement Size (cm) - Width 0 -Post Debridement Size (cm) - Depth 0 -Total Square Cm 0 -Wound/Ulcer Outcome Healed- Epithelialized -Ulcer Cleansing Rinsed/ Irrigated with Saline -Foul Odor after Cleansing No -Bioengineered Tissue No -Bleeding Controlled with NA -Treatment Response Procedure Tolerated Well #1 L LAT FOOT -Time 12:11 -Correct Patient Yes -Correct Side, Site, Position Yes -Correct Procedure Yes -Procedure Performed Yes -Type of Procedure Debridement -Clinical Debridement Subcutaneous -Post Debridement Size (cm) - Length 0.6 -Post Debridement Size (cm) - Width 0.2 -Post Debridement Size (cm) - Depth 0.2 -Total Square Cm 0.12 -Wound/Ulcer Outcome Not Healed -Ulcer Cleansing Rinsed/ Irrigated with Saline -Foul Odor after Cleansing No -Bioengineered Tissue Yes -Type of bioengineered Tissue EPIFIX -Expiration Date 10/17/22 -Product Lot Number [id number] -Percent Used 50 -Saline Lot Number [id number] -Topical Lidocaine (%) 5 -Bleeding Controlled with Pressure -Treatment Response Procedure Tolerated Well [See Physician Procedure note for Specifics] Pain Scale: 0-10 Numeric [Pain] -Is Patient Pain Free? Yes Yes Neurological: Cranial nerves II-XII grossly intact Psych/Mental Status: Normal Affect Debridement Note Post-Debridement Measurements/Treatment WC - Nurse 2 - General Ulcer CM Notes Start: 12/28/17 13:13 Freq: Status: Active Protocol: Activity Type Activity Date Activity User E-Sign Co-Sign Detail Recorded Client Recorded Date Recorded By Document 12/28/17 14:03 TM [id number] 12/28/17 14:22 TM Document 01/04/18 11:32 TM [id number] 01/04/18 11:37 Document 01/04/18 12:33 DV [id number] 01/04/18 12:42 DV Document 01/11/18 12:08 TM [id number] 01/11/18 12:12 Document 01/11/18 12:25 DV [id number] 01/11/18 12:40 DV 12/28/17 01/04/18 01/04/18 14:03 11:32 12:33 Wound Center Nurse 2 7-RIGHT RING FINGER -Time 12:33 -Correct Patient Yes -Correct Side, Site, Position Yes -Correct Procedure Yes -Procedure Performed Yes -Type of Procedure Debridement -Clinical Debridement Subcutaneous -Post Debridement Size (cm) - Length 0.4 -Post Debridement Size (cm) - Width 1.5 -Post Debridement Size (cm) - Depth 0.2 -Total Square Cm 0.60 -Wound/Ulcer Outcome Not Healed -Ulcer Cleansing Rinsed/ Irrigated with Saline -Foul Odor after Cleansing No -Bioengineered Tissue No -Bleeding Controlled with Pressure -Treatment Response Procedure Tolerated Well 6-RIGHT MIDDLE FINGER -Time 12:34 -Correct Patient Yes -Correct Side, Site, Position Yes -Correct Procedure Yes -Procedure Performed Yes -Type of Procedure Debridement -Clinical Debridement Subcutaneous -Post Debridement Size (cm) - Length 0.3 -Post Debridement Size (cm) - Width 0.9 -Post Debridement Size (cm) - Depth 0.2 -Total Square Cm 0.27 -Wound/Ulcer Outcome Not Healed -Ulcer Cleansing Rinsed/ Irrigated with Saline -Foul Odor after Cleansing No -Bioengineered Tissue No -Bleeding Controlled with Pressure -Treatment Response Procedure Tolerated Well 5-RIGHT INDEX FINGER -Time 12:34 -Correct Patient Yes -Correct Side, Site, Position Yes -Correct Procedure Yes -Procedure Performed Yes -Type of Procedure Debridement -Clinical Debridement Subcutaneous -Post Debridement Size (cm) - Length 0.8 -Post Debridement Size (cm) - Width 0.7 -Post Debridement Size (cm) - Depth 0.1 -Total Square Cm 0.56 -Wound/Ulcer Outcome Not Healed -Ulcer Cleansing Rinsed/ Irrigated with Saline -Foul Odor after Cleansing No -Bioengineered Tissue No -Bleeding Controlled with Pressure -Treatment Response Procedure Tolerated Well #4 R HEEL -Time 14:09 11:32 -Correct Patient Yes Yes -Correct Side, Site, Position Yes Yes -Correct Procedure Yes Yes -Procedure Performed Yes Yes -Type of Procedure Debridement -Clinical Debridement Subcutaneous -Post Debridement Size (cm) - Length 0.6 0 -Post Debridement Size (cm) - Width 0.2 0 -Post Debridement Size (cm) - Depth 0.1 0 -Total Square Cm 0.12 0 -Wound/Ulcer Outcome Not Healed Healed- Epithelialized -Ulcer Cleansing Rinsed/ Rinsed/ Irrigated with Irrigated with Saline Saline -Foul Odor after Cleansing No No -Bioengineered Tissue No No -Topical Lidocaine (%) 4 4 -Bleeding Controlled with Pressure NA -Treatment Response Procedure Procedure Tolerated Well Tolerated Well #3 R 4TH METATARSAL -Time 14: 11:33 -Correct Patient Yes Yes -Correct Side, Site, Position Yes Yes -Correct Procedure Yes Yes -Procedure Performed Yes Yes -Type of Procedure Debridement Debridement -Clinical Debridement Subcutaneous Subcutaneous -Post Debridement Size (cm) - Length 0.5 0.3 -Post Debridement Size (cm) - Width 0.2 0.2 -Post Debridement Size (cm) - Depth 0.1 0.1 -Total Square Cm 0.10 0.06 -Wound/Ulcer Outcome Not Healed Not Healed -Ulcer Cleansing Rinsed/ Rinsed/ Irrigated with Irrigated with Saline Saline -Foul Odor after Cleansing No No -Bioengineered Tissue No Yes -Type of bioengineered Tissue EPIFIX -Expiration Date 10/17/22 -Product Lot Number [id number] -Percent Used 33 -Saline Lot Number -Topical Lidocaine (%) 4 4 -Bleeding Controlled with Pressure Pressure -Treatment Response Procedure Procedure Tolerated Well Tolerated Well #2 L HEEL -Time 14: 11:34 -Correct Patient Yes Yes -Correct Side, Site, Position Yes Yes -Correct Procedure Yes Yes -Procedure Performed Yes Yes -Type of Procedure Debridement Debridement -Clinical Debridement Subcutaneous Subcutaneous -Post Debridement Size (cm) - Length 1.1 0.2 -Post Debridement Size (cm) - Width 0.2 1.9 -Post Debridement Size (cm) - Depth 0.2 0.1 -Total Square Cm 0.22 0.38 -Wound/Ulcer Outcome Not Healed Not Healed -Ulcer Cleansing Rinsed/ Rinsed/ Irrigated with Irrigated with Saline Saline -Foul Odor after Cleansing No No -Bioengineered Tissue No Yes -Type of bioengineered Tissue EPIFIX -Expiration Date 10/17/22 -Product Lot Number [id number] -Percent Used 33 -Topical Lidocaine (%) 4 4 -Bleeding Controlled with Pressure Pressure -Treatment Response Procedure Procedure Tolerated Well Tolerated Well #1 L LAT FOOT -Time 14:10 11:35 -Correct Patient Yes Yes -Correct Side, Site, Position Yes Yes -Correct Procedure Yes Yes -Procedure Performed Yes Yes -Type of Procedure Debridement Debridement -Clinical Debridement Subcutaneous Subcutaneous -Post Debridement Size (cm) - Length 0.3 0.3 -Post Debridement Size (cm) - Width 1.3 1.0 -Post Debridement Size (cm) - Depth 0.2 0.1 -Total Square Cm 0.39 0.30 -Wound/Ulcer Outcome Not Healed Not Healed -Ulcer Cleansing Rinsed/ Rinsed/ Irrigated with Irrigated with Saline Saline -Foul Odor after Cleansing No No -Bioengineered Tissue No Yes -Type of bioengineered Tissue EPIFIX -Expiration Date 10/17/22 -Product Lot Number [id number] -Percent Used 33 -Saline Lot Number -Topical Lidocaine (%) 4 4 -Bleeding Controlled with Pressure Pressure -Treatment Response Procedure Procedure Tolerated Well Tolerated Well Pain Scale: 0-10 Numeric Is Patient Pain Free? Yes Yes 01/11/18 01/11/18 12:08 12:25 Wound Center Nurse 2 7-RIGHT RING FINGER -Time 12:25 -Correct Patient Yes -Correct Side, Site, Position Yes -Correct Procedure Yes -Procedure Performed Yes -Type of Procedure Debridement -Clinical Debridement Subcutaneous -Post Debridement Size (cm) - Length 0.2 -Post Debridement Size (cm) - Width 1.3 -Post Debridement Size (cm) - Depth 0.1 -Total Square Cm 0.26 -Wound/Ulcer Outcome Not Healed -Ulcer Cleansing Rinsed/ Irrigated with Saline -Foul Odor after Cleansing No -Bioengineered Tissue No -Bleeding Controlled with NA -Treatment Response 6-RIGHT MIDDLE FINGER -Time 12:26 -Correct Patient Yes -Correct Side, Site, Position Yes -Correct Procedure Yes -Procedure Performed Yes -Type of Procedure Debridement -Clinical Debridement Subcutaneous -Post Debridement Size (cm) - Length 0.3 -Post Debridement Size (cm) - Width 0.9 -Post Debridement Size (cm) - Depth 0.1 -Total Square Cm 0.27 -Wound/Ulcer Outcome Not Healed -Ulcer Cleansing Rinsed/ Irrigated with Saline -Foul Odor after Cleansing No -Bioengineered Tissue No -Bleeding Controlled with Pressure -Treatment Response Procedure Tolerated Well 5-RIGHT INDEX FINGER -Time 12:26 -Correct Patient Yes -Correct Side, Site, Position Yes -Correct Procedure Yes -Procedure Performed Yes -Type of Procedure Debridement -Clinical Debridement Subcutaneous -Post Debridement Size (cm) - Length 0.6 -Post Debridement Size (cm) - Width 0.9 -Post Debridement Size (cm) - Depth 0.1 -Total Square Cm 0.54 -Wound/Ulcer Outcome Not Healed -Ulcer Cleansing Rinsed/ Irrigated with Saline -Foul Odor after Cleansing No -Bioengineered Tissue No -Bleeding Controlled with Pressure -Treatment Response Procedure Tolerated Well #4 R HEEL -Time -Correct Patient -Correct Side, Site, Position -Correct Procedure -Procedure Performed -Type of Procedure -Clinical Debridement -Post Debridement Size (cm) - Length -Post Debridement Size (cm) - Width -Post Debridement Size (cm) - Depth -Total Square Cm -Wound/Ulcer Outcome -Ulcer Cleansing -Foul Odor after Cleansing -Bioengineered Tissue -Topical Lidocaine (%) -Bleeding Controlled with -Treatment Response #3 R 4TH METATARSAL -Time 12:08 -Correct Patient Yes -Correct Side, Site, Position Yes -Correct Procedure Yes -Procedure Performed Yes -Type of Procedure Debridement -Clinical Debridement Subcutaneous -Post Debridement Size (cm) - Length 0.7 -Post Debridement Size (cm) - Width 0.4 -Post Debridement Size (cm) - Depth 0.2 -Total Square Cm 0.28 -Wound/Ulcer Outcome Not Healed -Ulcer Cleansing Rinsed/ Irrigated with Saline -Foul Odor after Cleansing No -Bioengineered Tissue Yes -Type of bioengineered Tissue EPIFIX -Expiration Date 10/17/22 -Product Lot Number [id number] -Percent Used 50 -Saline Lot Number [id number] -Topical Lidocaine (%) 5 -Bleeding Controlled with Pressure -Treatment Response Procedure Tolerated Well #2 L HEEL -Time 12:10 -Correct Patient Yes -Correct Side, Site, Position Yes -Correct Procedure Yes -Procedure Performed Yes -Type of Procedure -Clinical Debridement -Post Debridement Size (cm) - Length 0 -Post Debridement Size (cm) - Width 0 -Post Debridement Size (cm) - Depth 0 -Total Square Cm 0 -Wound/Ulcer Outcome Healed- Epithelialized -Ulcer Cleansing Rinsed/ Irrigated with Saline -Foul Odor after Cleansing No -Bioengineered Tissue No -Type of bioengineered Tissue -Expiration Date -Product Lot Number -Percent Used -Topical Lidocaine (%) -Bleeding Controlled with NA -Treatment Response Procedure Tolerated Well #1 L LAT FOOT -Time 12:11 -Correct Patient Yes -Correct Side, Site, Position Yes -Correct Procedure Yes -Procedure Performed Yes -Type of Procedure Debridement -Clinical Debridement Subcutaneous -Post Debridement Size (cm) - Length 0.6 -Post Debridement Size (cm) - Width 0.2 -Post Debridement Size (cm) - Depth 0.2 -Total Square Cm 0.12 -Wound/Ulcer Outcome Not Healed -Ulcer Cleansing Rinsed/ Irrigated with Saline -Foul Odor after Cleansing No -Bioengineered Tissue Yes -Type of bioengineered Tissue EPIFIX -Expiration Date 10/17/22 -Product Lot Number [id number] -Percent Used 50 -Saline Lot Number [id number] -Topical Lidocaine (%) 5 -Bleeding Controlled with Pressure -Treatment Response Procedure Tolerated Well Pain Scale: 0-10 Numeric Is Patient Pain Free? Yes Yes Wound debrided: right Index Finger Wound Grade/Stage: Stage II Type of Debridement: Excisional debridement Anesthesia Used: 4% Lidocaine Solution Depth: Down to and including healthy tissue, in the subcutaneous layer Percentage of wound debrided: 100 Instrument Used: 5mm curette, #15 blade Tissue Removed: Slough and devitalized tissue Severity: Fat Layer Exposed Amount of bleeding with debridement: Mild Bleeding Controlled with: Pressure Patient tolerated procedure well - Additional Wound Wound debrided: Right middle finger Wound Grade/Stage: Stage II Type of Debridement: Excisional debridement Anesthesia Used: 4% Lidocaine Solution Depth: Down to and including healthy tissue, in the subcutaneous layer Percentage of wound debrided: 100 Instrument Used: 5mm curette Tissue Removed: Slough, callus and devitalized tissue Severity: Fat Layer Exposed Amount of bleeding with debridement: Mild Bleeding Controlled with: Pressure Patient tolerated procedure: Patient tolerated procedure well - Additional Wound Wound debrided: Right ring finger Wound Grade/Stage: Stage II Type of Debridement: Excisional debridement Anesthesia Used: 4% Lidocaine Solution Depth: Down to and including healthy tissue, in the subcutaneous layer Percentage of wound debrided: 100 Instrument Used: 5mm curette Tissue Removed: Slough, callus and devitalized tissue Severity: Fat Layer Exposed Amount of bleeding with debridement: Mild Bleeding Controlled with: Pressure Patient tolerated procedure: Patient tolerated procedure well Assessment/Plan Active Problems (Last Reviewed 11/01/17 @ 16:03 by Wilmer Cartwright) Other specified peripheral vascular diseases (Chronic) Ulcer of right foot with fat layer exposed (Chronic) 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 Assessment: Right heel ulcer healed. left heel ulcer healed. Right sub-fourth metatarsal head ulcer with fat exposed - improving. Left sub-fifth metatarsal head ulcer with fat exposed - improving. Diabetes with neuropathy. Xerosis. Hammertoes bilateral. Noncompliance. Right Index , Middle and Ring finger ulcers with Fat layer exposed.(sees Dr. Vance) Plan: Right finger also appear to be improving/stable. He did receive a prescription for nifedipine standard release for right index finger ulcer which is possibly due to vasoconstriction as a result of his Raynaud's. Debridement done of all 3 ulcers as documented above. Procedure was well-tolerated. Continue Tegan daily to all ulcers. Advised to limit tightness of dressing over the right index finger. Continue nifedipine extended release 30 mg daily. Continue increased protein in diet/protein supplements. All other wound care measures as discussed earlier with Dr. Aparicio. 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 This note was generated with [employer] software. It may contain incorrect words, spelling, and punctuation that were not noted in checking the note before signing.
== END 2018-01-14 23:59 ==
LOC: WC 10:45
PROVIDERS: Family Provider Student in an Organized Health Care Education/Training Program; PCP Student in an Organized Health Care Education/Training Program; Visit Provider Podiatrist
DX: E11.621 Type 2 diabetes mellitus with foot ulcer (principal); L97.522 Non-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ulcer of other part of left foot with fat layer exposed; L97.512 Non-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ulcer of other part of right foot with fat layer exposed; Z91.19 Patient's noncompliance with other medical treatment and regimen; L85.3 Xerosis cutis; E11.40 Type 2 diabetes mellitus with diabetic neuropathy, unspecified; E11.51 Type 2 diabetes mellitus with diabetic peripheral angiopathy without gangrene; M20.42 Other hammer toe(s) (acquired), left foot; M20.41 Other hammer toe(s) (acquired), right foot; L98.492 Non-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ulcer of skin of other sites with fat layer exposed; E11.622 Type 2 diabetes mellitus with other skin ulcer
CPT/HCPCS: 11042; 15275; 99203; Q4131; G0463

== ENCOUNTER 2018-02-09 11:00 | Outpatient (RCR) | payer MEDICAID, SELFPAY ==
[2018-01-15 01:16] VITALS: PULSE 97; RESP 18; TEMP 37.3
[2018-01-18 11:39] VITALS: BP 112/72; PULSE 97; RESP 18; TEMP 37.2
--- NOTE | 2018-01-18 13:05 | PCM.WC.PN ---
(1) Ulcer of right foot with fat layer exposed Status: Chronic Current Visit: Yes Code(s): L97.512 - Non-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ulcer of other part of right foot with fat layer exposed (2) Chronic ulcer of left foot with fat layer exposed Status: Chronic Current Visit: Yes Code(s): L97.522 - Non-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ulcer of other part of left foot with fat layer exposed (3) Type 2 diabetes mellitus with diabetic polyneuropathy Status: Chronic Current Visit: Yes Code(s): E11.42 - Type 2 diabetes mellitus with diabetic polyneuropathy (4) Hammertoe of right foot Status: Chronic Current Visit: Yes Code(s): M20.41 - Other hammer toe(s) (acquired), right foot (5) Hammertoe of left foot Status: Chronic Current Visit: Yes Code(s): M20.42 - Other hammer toe(s) (acquired), left foot Type of Wound Date of Service: 01/19/18 Chief Complaint: Wounds to both feet History of Wound: Mr. Espinoza is a 57 yo with PMH of Diabetes currently returns to clinic for follow-up of ulcers on both feet. He had epi fix applied last week and is kept his dressing is intact. 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 He denies fever, chill, nausea, vomiting. He presents wearing surgical shoes today. Progress of Wound: Improving - Physical Exam Vital Signs Temp Pulse Resp BP 98.9 F 97 18 112/72 01/18/18 11:39 01/18/18 11:39 01/18/18 11:39 01/18/18 11:39 General: Alert, Oriented x3, Cooperative Extremities: No edema, Capillary Refill Less than 3 Seconds, No Calf Tenderness, Diminished Peripheral Pulses Skin: Ulcer/ Wound - No purulence, no erythema, streaking, no infection bilateral the skin is atrophic. There are no new fissures noted. Wound Measurements and Assessment WC - Nurse 1 - General Ulcer Measurement Start: 01/18/18 11:34 Freq: Status: Active Protocol: Activity Type Activity Date Activity User E-Sign Co-Sign Detail Recorded Client Recorded Date Recorded By Document 01/18/18 11:39 RB [id number] 01/18/18 11:52 RB 01/18/18 11:39 Wound Center Nurse 1 [Ulcer Assessment] 7-RIGHT RING FINGER -Combined with other wound No -Current Size (cm) - Length 0.2 -Current Size (cm) - Width 1 -Current Size (cm) - Depth 0.1 -Total Square Cm 0.2 -Tunneling No -Undermining/Tunneling No -Circular Undermining No -Classification - Thickness Full Thickness without Exposed Support Structure -Exudate Amt Small (1-33%) -Exudate Type Serosanguineous -Wound Margin Distinct, Outline Attached -Granulation Amt Small (1-33%) -Granulation Quality [place] -Slough/Fibrin Yes -Necrosis Amt Large (67-100%) -Necrotic Tissue Type Adherent Slough -Structure Exposed N/A -Texture (Mechelle-wound Skin Appearance) Assessed -Moisture ([place]le-wound Skin Appearance Assessed ) -Color ([place]-wound Skin Appearance) Assessed -Temperature ([place]-wound Skin No Abnormality Appearance) (Pt Warm) -Tenderness on Palpation ([place]le-wound No Skin Appearance) -Ulcer Cleansing Wound Cleanser -Foul Odor after Cleansing No -Anesthetic Used 4% Lidocaine Solution 6-RIGHT MIDDLE FINGER -Combined with other wound No -Current Size (cm) - Length 0.2 -Current Size (cm) - Width 1 -Current Size (cm) - Depth 0.1 -Total Square Cm 0.2 -Tunneling No -Undermining/Tunneling No -Circular Undermining No -Classification - Thickness Full Thickness without Exposed Support Structure -Exudate Amt Small (1-33%) -Exudate Type Serosanguineous -Wound Margin Distinct, Outline Attached -Granulation Amt Small (1-33%) -Granulation Quality [place] -Slough/Fibrin Yes -Necrosis Amt Large (67-100%) -Necrotic Tissue Type Adherent Slough -Structure Exposed N/A -Texture ([place]-wound Skin Appearance) Assessed -Moisture ([place]-wound Skin Appearance Assessed ) -Color ([place]-wound Skin Appearance) Assessed -Temperature ([place]-wound Skin No Abnormality Appearance) (Pt Warm) -Tenderness on Palpation ([place]-wound No Skin Appearance) -Ulcer Cleansing Wound Cleanser -Foul Odor after Cleansing No -Anesthetic Used 4% Lidocaine Solution 5-RIGHT INDEX FINGER -Combined with other wound No -Current Size (cm) - Length 0.6 -Current Size (cm) - Width 0.7 -Current Size (cm) - Depth 0.1 -Total Square Cm 0.42 -Tunneling No -Undermining/Tunneling No -Circular Undermining No -Classification - Thickness Full Thickness without Exposed Support Structure -Exudate Amt Small (1-33%) -Exudate Type Serosanguineous -Wound Margin Distinct, Outline Attached -Granulation Amt Small (1-33%) -Granulation Quality [place] -Slough/Fibrin Yes -Necrosis Amt Large (67-100%) -Necrotic Tissue Type Adherent Slough -Structure Exposed N/A -Texture ([place]-wound Skin Appearance) Assessed -Moisture ([place]le-wound Skin Appearance Assessed ) -Color ([place]-wound Skin Appearance) Assessed -Temperature ([place]-wound Skin No Abnormality Appearance) (Pt Warm) -Tenderness on Palpation ([place]le-wound No Skin Appearance) -Ulcer Cleansing Rinsed/ Irrigated with Saline -Foul Odor after Cleansing No -Anesthetic Used 4% Lidocaine Solution #3 R 4TH METATARSAL -Combined with other wound No -Current Size (cm) - Length 0.1 -Current Size (cm) - Width 0.1 -Current Size (cm) - Depth 0.1 -Total Square Cm 0.01 -Photo Taken No -Epithelialization Large 67-100% -Tunneling No -Undermining/Tunneling No -Circular Undermining No -Classification - Thickness Full Thickness without Exposed Support Structure -Exudate Amt None Present (0 %) -Wound Margin Distinct, Outline Attached -Granulation Amt Large (67-100%) -Granulation Quality [place] -Slough/Fibrin No -Necrosis Amt None Present (0 %) -Structure Exposed N/A -Texture ([place]le-wound Skin Appearance) Assessed -Moisture ([place]le-wound Skin Appearance Assessed ) -Color ([place]le-wound Skin Appearance) Assessed -Temperature ([place]-wound Skin No Abnormality Appearance) (Pt Warm) -Tenderness on Palpation ([place]le-wound No Skin Appearance) -Ulcer Cleansing Rinsed/ Irrigated with Saline -Foul Odor after Cleansing No -Anesthetic Used 4% Lidocaine Solution #1 L LAT FOOT -Combined with other wound No -Current Size (cm) - Length 0.1 -Current Size (cm) - Width 0.1 -Current Size (cm) - Depth 0.1 -Total Square Cm 0.01 -Photo Taken No -Tunneling No -Undermining/Tunneling No -Circular Undermining No -Classification - Thickness Full Thickness without Exposed Support Structure -Exudate Amt None Present (0 %) -Wound Margin Distinct, Outline Attached -Granulation Amt Large (67-100%) -Granulation Quality [place] -Slough/Fibrin No -Structure Exposed N/A -Texture ([place]le-wound Skin Appearance) Assessed Callus -Moisture ([place]-wound Skin Appearance Assessed ) -Color ([place]-wound Skin Appearance) Assessed -Temperature ([place]-wound Skin No Abnormality Appearance) (Pt Warm) -Tenderness on Palpation ([place]helle-wound No Skin Appearance) -Ulcer Cleansing Rinsed/ Irrigated with Saline -Foul Odor after Cleansing No -Anesthetic Used 4% Lidocaine Solution WC - Nurse 2 - General Ulcer CM Notes Start: 01/18/18 11:34 Freq: Status: Active Protocol: Activity Type Activity Date Activity User E-Sign Co-Sign Detail Recorded Client Recorded Date Recorded By Document 01/18/18 11:58 MARJORIE [id number] 01/18/18 12:01 JF Document 01/18/18 12:12 DV [id number] 01/18/18 12:17 DV 01/18/18 01/18/18 11:58 12:12 Wound Center Nurse 2 [Procedure/Treatment] 7-RIGHT RING FINGER -Time 12:12 -Correct Patient Yes -Correct Side, Site, Position Yes -Procedure Performed No -Post Debridement Size (cm) - Length 0.1 -Post Debridement Size (cm) - Width 0.1 -Post Debridement Size (cm) - Depth 0.1 -Total Square Cm 0.01 -Wound/Ulcer Outcome Healed- Epithelialized 6-RIGHT MIDDLE FINGER -Time 12:13 -Correct Patient Yes -Correct Side, Site, Position Yes -Procedure Performed No -Post Debridement Size (cm) - Length 0.1 -Post Debridement Size (cm) - Width 0.1 -Post Debridement Size (cm) - Depth 0.1 -Total Square Cm 0.01 -Wound/Ulcer Outcome Healed- Epithelialized 5-RIGHT INDEX FINGER -Time 12:13 -Correct Patient Yes -Correct Side, Site, Position Yes -Correct Procedure Yes -Procedure Performed Yes -Type of Procedure Debridement -Clinical Debridement Subcutaneous -Post Debridement Size (cm) - Length 0.6 -Post Debridement Size (cm) - Width 0.8 -Post Debridement Size (cm) - Depth 0.1 -Total Square Cm 0.48 -Wound/Ulcer Outcome Not Healed -Ulcer Cleansing Rinsed/ Irrigated with Saline -Foul Odor after Cleansing No -Bioengineered Tissue No -Bleeding Controlled with Pressure -Treatment Response Procedure Tolerated Well #3 R 4TH METATARSAL -Time 11:59 -Correct Patient Yes -Correct Side, Site, Position Yes -Correct Procedure Yes -Procedure Performed Yes -Type of Procedure Debridement -Clinical Debridement Subcutaneous -Post Debridement Size (cm) - Length 0.2 -Post Debridement Size (cm) - Width 0.3 -Post Debridement Size (cm) - Depth 0.1 -Total Square Cm 0.06 -Wound/Ulcer Outcome Not Healed -Ulcer Cleansing Rinsed/ Irrigated with Saline -Foul Odor after Cleansing No -Bioengineered Tissue No -Bleeding Controlled with Pressure -Treatment Response Procedure Tolerated Well #1 L LAT FOOT -Time 11:59 -Correct Patient Yes -Correct Side, Site, Position Yes -Correct Procedure Yes -Procedure Performed Yes -Type of Procedure Debridement -Clinical Debridement Subcutaneous -Post Debridement Size (cm) - Length 0.3 -Post Debridement Size (cm) - Width 0.5 -Post Debridement Size (cm) - Depth 0.1 -Total Square Cm 0.15 -Wound/Ulcer Outcome Not Healed -Ulcer Cleansing Rinsed/ Irrigated with Saline -Foul Odor after Cleansing No -Bioengineered Tissue No -Bleeding Controlled with Pressure -Treatment Response Procedure Tolerated Well [See Physician Procedure note for Specifics] Pain Scale: 0-10 Numeric [Pain] -Is Patient Pain Free? Yes Musculoskeletal: No Tenderness to Palpation of Joints or Extremities, Muscle Wasting, - - Bilateral prominent metatarsal head with dorsal contraction of the lesser digits bilateral. Compartments of lower extremities remain soft bilateral Neurological: - - Lack of epicritic sensation light touch bilateral lower extremity Psych/Mental Status: Normal Affect, Appropriate Debridement Note Post-Debridement Measurements/Treatment WC - Nurse 2 - General Ulcer CM Notes Start: 01/18/18 11:34 Freq: Status: Active Protocol: Activity Type Activity Date Activity User E-Sign Co-Sign Detail Recorded Client Recorded Date Recorded By Document 01/18/18 11:58 MARJORIE [id number] 01/18/18 12:01 JF Document 01/18/18 12:12 DV [id number] 01/18/18 12:17 DV 01/18/18 01/18/18 11:58 12:12 Wound Center Nurse 2 7-RIGHT RING FINGER -Time 12:12 -Correct Patient Yes -Correct Side, Site, Position Yes -Procedure Performed No -Post Debridement Size (cm) - Length 0.1 -Post Debridement Size (cm) - Width 0.1 -Post Debridement Size (cm) - Depth 0.1 -Total Square Cm 0.01 -Wound/Ulcer Outcome Healed- Epithelialized 6-RIGHT MIDDLE FINGER -Time 12:13 -Correct Patient Yes -Correct Side, Site, Position Yes -Procedure Performed No -Post Debridement Size (cm) - Length 0.1 -Post Debridement Size (cm) - Width 0.1 -Post Debridement Size (cm) - Depth 0.1 -Total Square Cm 0.01 -Wound/Ulcer Outcome Healed- Epithelialized 5-RIGHT INDEX FINGER -Time 12:13 -Correct Patient Yes -Correct Side, Site, Position Yes -Correct Procedure Yes -Procedure Performed Yes -Type of Procedure Debridement -Clinical Debridement Subcutaneous -Post Debridement Size (cm) - Length 0.6 -Post Debridement Size (cm) - Width 0.8 -Post Debridement Size (cm) - Depth 0.1 -Total Square Cm 0.48 -Wound/Ulcer Outcome Not Healed -Ulcer Cleansing Rinsed/ Irrigated with Saline -Foul Odor after Cleansing No -Bioengineered Tissue No -Bleeding Controlled with Pressure -Treatment Response Procedure Tolerated Well #3 R 4TH METATARSAL -Time 11:59 -Correct Patient Yes -Correct Side, Site, Position Yes -Correct Procedure Yes -Procedure Performed Yes -Type of Procedure Debridement -Clinical Debridement Subcutaneous -Post Debridement Size (cm) - Length 0.2 -Post Debridement Size (cm) - Width 0.3 -Post Debridement Size (cm) - Depth 0.1 -Total Square Cm 0.06 -Wound/Ulcer Outcome Not Healed -Ulcer Cleansing Rinsed/ Irrigated with Saline -Foul Odor after Cleansing No -Bioengineered Tissue No -Bleeding Controlled with Pressure -Treatment Response Procedure Tolerated Well #1 L LAT FOOT -Time 11:59 -Correct Patient Yes -Correct Side, Site, Position Yes -Correct Procedure Yes -Procedure Performed Yes -Type of Procedure Debridement -Clinical Debridement Subcutaneous -Post Debridement Size (cm) - Length 0.3 -Post Debridement Size (cm) - Width 0.5 -Post Debridement Size (cm) - Depth 0.1 -Total Square Cm 0.15 -Wound/Ulcer Outcome Not Healed -Ulcer Cleansing Rinsed/ Irrigated with Saline -Foul Odor after Cleansing No -Bioengineered Tissue No -Bleeding Controlled with Pressure -Treatment Response Procedure Tolerated Well Pain Scale: 0-10 Numeric Is Patient Pain Free? Yes Wound debrided: sub metatarsal head Laterality: Right Wound Grade/Stage: grade 1 Type of Debridement: Excisional debridement Anesthesia Used: 4% Lidocaine Solution Depth: in the subcutaneous layer Percentage of wound debrided: 100 Instrument Used: #15 blade Tissue Removed: Devitalized subcutaneous, biofilm, slough, fibrous tissue Severity: Fat Layer Exposed Amount of bleeding with debridement: Mild Bleeding Controlled with: Pressure Patient tolerated procedure well - Additional Wound Wound debrided: sub metatarsal head Laterality: Left Wound Grade/Stage: grade 1 Type of Debridement: Excisional debridement Anesthesia Used: 4% Lidocaine Solution Depth: in the subcutaneous layer Percentage of wound debrided: 100 Instrument Used: #15 blade Tissue Removed: Devitalized subcutaneous, biofilm, slough, fibrous tissue Severity: Fat Layer Exposed Amount of bleeding with debridement: Mild Bleeding Controlled with: Pressure Patient tolerated procedure: Patient tolerated procedure well Assessment/Plan Active Problems (Last Reviewed 11/01/17 @ 16:03 by Wilmer Cartwright) Ulcer of right foot with fat layer exposed (Chronic) Chronic ulcer of left foot with fat layer exposed (Chronic) Skin ulcer of finger with fat layer exposed (Chronic) Right Index Finger Type 2 diabetes mellitus with diabetic polyneuropathy (Chronic) Hammertoe of right foot (Chronic) Hammertoe of left foot (Chronic) Assessment: Right sub-fourth metatarsal head ulcer with fat exposed - improving. Left sub-fifth metatarsal head ulcer with fat exposed - improving. Diabetes with neuropathy. Xerosis. Hammertoes bilateral. Noncompliance. Right Index , Middle and Ring finger ulcers with Fat layer exposed.(sees Dr. Vance) Plan: I reviewed and discussed his care plan today. Subcutaneous ulceration debridement was performed as noted in the clinical panel. He was reassured there are no signs of infection. He is approved for application of advanced wound care product, epi fix. Verbal consent was obtained and he understands the indications, application process, and anticipated healing time and management. The product was applied to the 2 wound sites according to standard protocol and he tolerated as well. This was secured in place with a wound veil and Steri-Strips. He was advised to keep this clean, dry, and intact until follow-up next week. To continue with strict offloading with surgical shoes. He already has these devices and compliance was discussed. To moisturize the adjacent skin to improve skin integrity to his hands and feet. Updated labs and x-rays were ordered. The following diagnostic data was reviewed: (labs 11/02/2017) Hemoglobin A1c 6.3%, total protein 7.2, albumin 3.7, creatinine 0.97, white blood cell count 10.25, platelet 345. His last progress note from Dr. Avery Escalante was also reviewed from November 01, 2017 in which it was noted he does also have a diagnosis of raynauds disease noted to the fingers and rest less leg syndrome amongst treatment of his other aformentioned chronic comorbidities. He understands he is at risk for continued infection development, delayed healing. He has nonhealing wounds to his hands and would like to seek intervention. Dr. Vance will see him again today for this condition and intervention is greatly appreciated. It is noted he was started on oral nifedipine to help with the suspected raynauds. To maintain and improve diabetic control and nutritional supplementation to optimize healing. To take nutritional supplements as advised to optimize healing; a andrzej prescription was previously provided. To return to clinic in one week or call sooner if problems or concerns. Answered all his questions.
--- NOTE | 2018-01-18 19:26 | PCM.WC.PN ---
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 Type of Wound Date of Service: 01/18/18 Chief Complaint: Ulcers of his right index, middle and ring fingers. History of Wound: Mr. Espinoza is a 57yo with PMH of Diabetes currently seeing Dr Aparicio for lower extremity ulcers. I was asked to see him for chronic ulcers of his right index, middle and ring fingers. He is a [place] and has chronic upper extremity callus and has had ulcers which have typically healed well however, current episodes of his right middle and ring fingers have persisted despite management with neosporin application. There is no significant callous of his right index finger however, he noted the ulcer sometime in September after he had been in 0 degree weather with exposed hands for a long time. He reports pain in that digit but denies any discharge from the site. He has also been applying Neosporin without any significant improvement. Progress of Wound: Improving finger ulcers. - Physical Exam Vital Signs Temp Pulse Resp BP 98.9 F 97 18 112/72 01/18/18 11:39 01/18/18 11:39 01/18/18 11:39 01/18/18 11:39 General: Alert, Oriented x3, Cooperative, No apparent distress HEENT: Atraumatic, Normocephalic Oral: Moist Mucosa Neck: Supple Lungs: Normal air movement Cardiovascular: Regular rate Skin: Ulcer/ Wound Wound Measurements and Assessment WC - Nurse 1 - General Ulcer Measurement Start: 01/18/18 11:34 Freq: Status: Active Protocol: Activity Type Activity Date Activity User E-Sign Co-Sign Detail Recorded Client Recorded Date Recorded By Document 01/18/18 11:39 RB [id number] 01/18/18 11:52 RB 01/18/18 11:39 Wound Center Nurse 1 [Ulcer Assessment] 7-RIGHT RING FINGER -Combined with other wound No -Current Size (cm) - Length 0.2 -Current Size (cm) - Width 1 -Current Size (cm) - Depth 0.1 -Total Square Cm 0.2 -Tunneling No -Undermining/Tunneling No -Circular Undermining No -Classification - Thickness Full Thickness without Exposed Support Structure -Exudate Amt Small (1-33%) -Exudate Type Serosanguineous -Wound Margin Distinct, Outline Attached -Granulation Amt Small (1-33%) -Granulation Quality [place] -Slough/Fibrin Yes -Necrosis Amt Large (67-100%) -Necrotic Tissue Type Adherent Slough -Structure Exposed N/A -Texture (Mechelle-wound Skin Appearance) Assessed -Moisture (Mechelle-wound Skin Appearance Assessed ) -Color (Mechelle-wound Skin Appearance) Assessed -Temperature (Mechelle-wound Skin No Abnormality Appearance) (Pt Warm) -Tenderness on Palpation (Mechelle-wound No Skin Appearance) -Ulcer Cleansing Wound Cleanser -Foul Odor after Cleansing No -Anesthetic Used 4% Lidocaine Solution 6-RIGHT MIDDLE FINGER -Combined with other wound No -Current Size (cm) - Length 0.2 -Current Size (cm) - Width 1 -Current Size (cm) - Depth 0.1 -Total Square Cm 0.2 -Tunneling No -Undermining/Tunneling No -Circular Undermining No -Classification - Thickness Full Thickness without Exposed Support Structure -Exudate Amt Small (1-33%) -Exudate Type Serosanguineous -Wound Margin Distinct, Outline Attached -Granulation Amt Small (1-33%) -Granulation Quality [place] -Slough/Fibrin Yes -Necrosis Amt Large (67-100%) -Necrotic Tissue Type Adherent Slough -Structure Exposed N/A -Texture (Mechelle-wound Skin Appearance) Assessed -Moisture (Mechelle-wound Skin Appearance Assessed ) -Color (Mechelle-wound Skin Appearance) Assessed -Temperature (Mechelle-wound Skin No Abnormality Appearance) (Pt Warm) -Tenderness on Palpation (Mechelle-wound No Skin Appearance) -Ulcer Cleansing Wound Cleanser -Foul Odor after Cleansing No -Anesthetic Used 4% Lidocaine Solution 5-RIGHT INDEX FINGER -Combined with other wound No -Current Size (cm) - Length 0.6 -Current Size (cm) - Width 0.7 -Current Size (cm) - Depth 0.1 -Total Square Cm 0.42 -Tunneling No -Undermining/Tunneling No -Circular Undermining No -Classification - Thickness Full Thickness without Exposed Support Structure -Exudate Amt Small (1-33%) -Exudate Type Serosanguineous -Wound Margin Distinct, Outline Attached -Granulation Amt Small (1-33%) -Granulation Quality [place] -Slough/Fibrin Yes -Necrosis Amt Large (67-100%) -Necrotic Tissue Type Adherent Slough -Structure Exposed N/A -Texture (Mechelle-wound Skin Appearance) Assessed -Moisture (Mechelle-wound Skin Appearance Assessed ) -Color (Mechelle-wound Skin Appearance) Assessed -Temperature (Mechelle-wound Skin No Abnormality Appearance) (Pt Warm) -Tenderness on Palpation (Mechelle-wound No Skin Appearance) -Ulcer Cleansing Rinsed/ Irrigated with Saline -Foul Odor after Cleansing No -Anesthetic Used 4% Lidocaine Solution #3 R 4TH METATARSAL -Combined with other wound No -Current Size (cm) - Length 0.1 -Current Size (cm) - Width 0.1 -Current Size (cm) - Depth 0.1 -Total Square Cm 0.01 -Photo Taken No -Epithelialization Large 67-100% -Tunneling No -Undermining/Tunneling No -Circular Undermining No -Classification - Thickness Full Thickness without Exposed Support Structure -Exudate Amt None Present (0 %) -Wound Margin Distinct, Outline Attached -Granulation Amt Large (67-100%) -Granulation Quality [place] -Slough/Fibrin No -Necrosis Amt None Present (0 %) -Structure Exposed N/A -Texture (Mechelle-wound Skin Appearance) Assessed -Moisture (Mechelle-wound Skin Appearance Assessed ) -Color (Mechelle-wound Skin Appearance) Assessed -Temperature (Mechelle-wound Skin No Abnormality Appearance) (Pt Warm) -Tenderness on Palpation (Mechelle-wound No Skin Appearance) -Ulcer Cleansing Rinsed/ Irrigated with Saline -Foul Odor after Cleansing No -Anesthetic Used 4% Lidocaine Solution #1 L LAT FOOT -Combined with other wound No -Current Size (cm) - Length 0.1 -Current Size (cm) - Width 0.1 -Current Size (cm) - Depth 0.1 -Total Square Cm 0.01 -Photo Taken No -Tunneling No -Undermining/Tunneling No -Circular Undermining No -Classification - Thickness Full Thickness without Exposed Support Structure -Exudate Amt None Present (0 %) -Wound Margin Distinct, Outline Attached -Granulation Amt Large (67-100%) -Granulation Quality [place] -Slough/Fibrin No -Structure Exposed N/A -Texture (Mechelle-wound Skin Appearance) Assessed Callus -Moisture (Mechelle-wound Skin Appearance Assessed ) -Color (Mechelle-wound Skin Appearance) Assessed -Temperature (Mechelle-wound Skin No Abnormality Appearance) (Pt Warm) -Tenderness on Palpation (Mechelle-wound No Skin Appearance) -Ulcer Cleansing Rinsed/ Irrigated with Saline -Foul Odor after Cleansing No -Anesthetic Used 4% Lidocaine Solution WC - Nurse 2 - General Ulcer CM Notes Start: 01/18/18 11:34 Freq: Status: Active Protocol: Activity Type Activity Date Activity User E-Sign Co-Sign Detail Recorded Client Recorded Date Recorded By Document 01/18/18 11:58 MARJORIE [id number] 01/18/18 12:01 JF Document 01/18/18 12:12 DV [id number] 01/18/18 12:17 DV 01/18/18 01/18/18 11:58 12:12 Wound Center Nurse 2 [Procedure/Treatment] 7-RIGHT RING FINGER -Time 12:12 -Correct Patient Yes -Correct Side, Site, Position Yes -Procedure Performed No -Post Debridement Size (cm) - Length 0.1 -Post Debridement Size (cm) - Width 0.1 -Post Debridement Size (cm) - Depth 0.1 -Total Square Cm 0.01 -Wound/Ulcer Outcome Healed- Epithelialized 6-RIGHT MIDDLE FINGER -Time 12:13 -Correct Patient Yes -Correct Side, Site, Position Yes -Procedure Performed No -Post Debridement Size (cm) - Length 0.1 -Post Debridement Size (cm) - Width 0.1 -Post Debridement Size (cm) - Depth 0.1 -Total Square Cm 0.01 -Wound/Ulcer Outcome Healed- Epithelialized 5-RIGHT INDEX FINGER -Time 12:13 -Correct Patient Yes -Correct Side, Site, Position Yes -Correct Procedure Yes -Procedure Performed Yes -Type of Procedure Debridement -Clinical Debridement Subcutaneous -Post Debridement Size (cm) - Length 0.6 -Post Debridement Size (cm) - Width 0.8 -Post Debridement Size (cm) - Depth 0.1 -Total Square Cm 0.48 -Wound/Ulcer Outcome Not Healed -Ulcer Cleansing Rinsed/ Irrigated with Saline -Foul Odor after Cleansing No -Bioengineered Tissue No -Bleeding Controlled with Pressure -Treatment Response Procedure Tolerated Well #3 R 4TH METATARSAL -Time 11:59 -Correct Patient Yes -Correct Side, Site, Position Yes -Correct Procedure Yes -Procedure Performed Yes -Type of Procedure Debridement -Clinical Debridement Subcutaneous -Post Debridement Size (cm) - Length 0.2 -Post Debridement Size (cm) - Width 0.3 -Post Debridement Size (cm) - Depth 0.1 -Total Square Cm 0.06 -Wound/Ulcer Outcome Not Healed -Ulcer Cleansing Rinsed/ Irrigated with Saline -Foul Odor after Cleansing No -Bioengineered Tissue No -Bleeding Controlled with Pressure -Treatment Response Procedure Tolerated Well #1 L LAT FOOT -Time 11:59 -Correct Patient Yes -Correct Side, Site, Position Yes -Correct Procedure Yes -Procedure Performed Yes -Type of Procedure Debridement -Clinical Debridement Subcutaneous -Post Debridement Size (cm) - Length 0.3 -Post Debridement Size (cm) - Width 0.5 -Post Debridement Size (cm) - Depth 0.1 -Total Square Cm 0.15 -Wound/Ulcer Outcome Not Healed -Ulcer Cleansing Rinsed/ Irrigated with Saline -Foul Odor after Cleansing No -Bioengineered Tissue No -Bleeding Controlled with Pressure -Treatment Response Procedure Tolerated Well [See Physician Procedure note for Specifics] Pain Scale: 0-10 Numeric [Pain] -Is Patient Pain Free? Yes Musculoskeletal: No Muscle Wasting Neurological: Cranial nerves II-XII grossly intact Psych/Mental Status: Normal Affect Debridement Note Post-Debridement Measurements/Treatment WC - Nurse 2 - General Ulcer CM Notes Start: 01/18/18 11:34 Freq: Status: Active Protocol: Activity Type Activity Date Activity User E-Sign Co-Sign Detail Recorded Client Recorded Date Recorded By Document 01/18/18 11:58 JF [id number] 01/18/18 12:01 JF Document 01/18/18 12:12 DV [id number] 01/18/18 12:17 DV 01/18/18 01/18/18 11:58 12:12 Wound Center Nurse 2 7-RIGHT RING FINGER -Time 12:12 -Correct Patient Yes -Correct Side, Site, Position Yes -Procedure Performed No -Post Debridement Size (cm) - Length 0.1 -Post Debridement Size (cm) - Width 0.1 -Post Debridement Size (cm) - Depth 0.1 -Total Square Cm 0.01 -Wound/Ulcer Outcome Healed- Epithelialized 6-RIGHT MIDDLE FINGER -Time 12:13 -Correct Patient Yes -Correct Side, Site, Position Yes -Procedure Performed No -Post Debridement Size (cm) - Length 0.1 -Post Debridement Size (cm) - Width 0.1 -Post Debridement Size (cm) - Depth 0.1 -Total Square Cm 0.01 -Wound/Ulcer Outcome Healed- Epithelialized 5-RIGHT INDEX FINGER -Time 12:13 -Correct Patient Yes -Correct Side, Site, Position Yes -Correct Procedure Yes -Procedure Performed Yes -Type of Procedure Debridement -Clinical Debridement Subcutaneous -Post Debridement Size (cm) - Length 0.6 -Post Debridement Size (cm) - Width 0.8 -Post Debridement Size (cm) - Depth 0.1 -Total Square Cm 0.48 -Wound/Ulcer Outcome Not Healed -Ulcer Cleansing Rinsed/ Irrigated with Saline -Foul Odor after Cleansing No -Bioengineered Tissue No -Bleeding Controlled with Pressure -Treatment Response Procedure Tolerated Well #3 R 4TH METATARSAL -Time 11:59 -Correct Patient Yes -Correct Side, Site, Position Yes -Correct Procedure Yes -Procedure Performed Yes -Type of Procedure Debridement -Clinical Debridement Subcutaneous -Post Debridement Size (cm) - Length 0.2 -Post Debridement Size (cm) - Width 0.3 -Post Debridement Size (cm) - Depth 0.1 -Total Square Cm 0.06 -Wound/Ulcer Outcome Not Healed -Ulcer Cleansing Rinsed/ Irrigated with Saline -Foul Odor after Cleansing No -Bioengineered Tissue No -Bleeding Controlled with Pressure -Treatment Response Procedure Tolerated Well #1 L LAT FOOT -Time 11:59 -Correct Patient Yes -Correct Side, Site, Position Yes -Correct Procedure Yes -Procedure Performed Yes -Type of Procedure Debridement -Clinical Debridement Subcutaneous -Post Debridement Size (cm) - Length 0.3 -Post Debridement Size (cm) - Width 0.5 -Post Debridement Size (cm) - Depth 0.1 -Total Square Cm 0.15 -Wound/Ulcer Outcome Not Healed -Ulcer Cleansing Rinsed/ Irrigated with Saline -Foul Odor after Cleansing No -Bioengineered Tissue No -Bleeding Controlled with Pressure -Treatment Response Procedure Tolerated Well Pain Scale: 0-10 Numeric Is Patient Pain Free? Yes Wound debrided: Right Index Finger Wound Grade/Stage: Stage II Type of Debridement: Excisional debridement Anesthesia Used: 4% Lidocaine Solution Depth: Down to and including healthy tissue, in the subcutaneous layer Percentage of wound debrided: 100 Instrument Used: 5mm curette Tissue Removed: Slough and Devitalized tissue Severity: Fat Layer Exposed Amount of bleeding with debridement: Mild Bleeding Controlled with: Pressure Patient tolerated procedure well Assessment/Plan Active Problems (Last Reviewed 11/01/17 @ 16:03 by Wilmer Cartwright) Ulcer of right foot with fat layer exposed (Chronic) 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 left heel ulcer healed. Right sub-fourth metatarsal head ulcer with fat exposed - improving. Left sub-fifth metatarsal head ulcer with fat exposed - improving. Diabetes with neuropathy. Xerosis. Hammertoes bilateral. Noncompliance. Right Index ( Improving ) , Middle and Ring finger ulcers with Fat layer exposed- Healed -.(sees Dr. Vance) Plan: Right middle and ring finger ulcers have healed. Right index finger ulcer is stable. Minimal improvement in the past week. Debridement done as documented above. Procedure was well-tolerated. Continue Tegan daily to right index finger with Adaptic. Advised to limit tightness of dressing over the right index finger. Continue nifedipine extended release 30 mg daily. Advised to adequately moisturize hands especially at night and to use 100% cotton gloves to help retain moisture. Continue increased protein in diet/protein supplements. Follow-up in 2 weeks. This note was generated with [employer] software. It may contain incorrect words, spelling, and punctuation that were not noted in checking the note before signing.
--- NOTE | 2018-01-18 19:31 | PN.PCM_ITS ---
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 Type of Wound Date of Service: 01/18/18 Chief Complaint: Ulcers of his right index, middle and ring fingers. History of Wound: Mr. Espinoza is a 57yo with PMH of Diabetes currently seeing Dr Aparicio for lower extremity ulcers. I was asked to see him for chronic ulcers of his right index, middle and ring fingers. He is a [place] and has chronic upper extremity callus and has had ulcers which have typically healed well however, current episodes of his right middle and ring fingers have persisted despite management with neosporin application. There is no significant callous of his right index finger however, he noted the ulcer sometime in September after he had been in 0 degree weather with exposed hands for a long time. He reports pain in that digit but denies any discharge from the site. He has also been applying Neosporin without any significant improvement. Progress of Wound: Improving finger ulcers. - Physical Exam Vital Signs Temp Pulse Resp BP 98.9 F 97 18 112/72 01/18/18 11:39 01/18/18 11:39 01/18/18 11:39 01/18/18 11:39 General: Alert, Oriented x3, Cooperative, No apparent distress HEENT: Atraumatic, Normocephalic Oral: Moist Mucosa Neck: Supple Lungs: Normal air movement Cardiovascular: Regular rate Skin: Ulcer/ Wound Wound Measurements and Assessment WC - Nurse 1 - General Ulcer Measurement Start: 01/18/18 11:34 Freq: Status: Active Protocol: Activity Type Activity Date Activity User E-Sign Co-Sign Detail Recorded Client Recorded Date Recorded By Document 01/18/18 11:39 RB [id number] 01/18/18 11:52 RB 01/18/18 11:39 Wound Center Nurse 1 [Ulcer Assessment] 7-RIGHT RING FINGER -Combined with other wound No -Current Size (cm) - Length 0.2 -Current Size (cm) - Width 1 -Current Size (cm) - Depth 0.1 -Total Square Cm 0.2 -Tunneling No -Undermining/Tunneling No -Circular Undermining No -Classification - Thickness Full Thickness without Exposed Support Structure -Exudate Amt Small (1-33%) -Exudate Type Serosanguineous -Wound Margin Distinct, Outline Attached -Granulation Amt Small (1-33%) -Granulation Quality [place] -Slough/Fibrin Yes -Necrosis Amt Large (67-100%) -Necrotic Tissue Type Adherent Slough -Structure Exposed N/A -Texture (Mechelle-wound Skin Appearance) Assessed -Moisture (Mechelle-wound Skin Appearance Assessed ) -Color (Mechelle-wound Skin Appearance) Assessed -Temperature (Mechelle-wound Skin No Abnormality Appearance) (Pt Warm) -Tenderness on Palpation (Mechelle-wound No Skin Appearance) -Ulcer Cleansing Wound Cleanser -Foul Odor after Cleansing No -Anesthetic Used 4% Lidocaine Solution 6-RIGHT MIDDLE FINGER -Combined with other wound No -Current Size (cm) - Length 0.2 -Current Size (cm) - Width 1 -Current Size (cm) - Depth 0.1 -Total Square Cm 0.2 -Tunneling No -Undermining/Tunneling No -Circular Undermining No -Classification - Thickness Full Thickness without Exposed Support Structure -Exudate Amt Small (1-33%) -Exudate Type Serosanguineous -Wound Margin Distinct, Outline Attached -Granulation Amt Small (1-33%) -Granulation Quality [place] -Slough/Fibrin Yes -Necrosis Amt Large (67-100%) -Necrotic Tissue Type Adherent Slough -Structure Exposed N/A -Texture (Mechelle-wound Skin Appearance) Assessed -Moisture (Mechelle-wound Skin Appearance Assessed ) -Color (Mechelle-wound Skin Appearance) Assessed -Temperature ([place]helle-wound Skin No Abnormality Appearance) (Pt Warm) -Tenderness on Palpation (Mechelle-wound No Skin Appearance) -Ulcer Cleansing Wound Cleanser -Foul Odor after Cleansing No -Anesthetic Used 4% Lidocaine Solution 5-RIGHT INDEX FINGER -Combined with other wound No -Current Size (cm) - Length 0.6 -Current Size (cm) - Width 0.7 -Current Size (cm) - Depth 0.1 -Total Square Cm 0.42 -Tunneling No -Undermining/Tunneling No -Circular Undermining No -Classification - Thickness Full Thickness without Exposed Support Structure -Exudate Amt Small (1-33%) -Exudate Type Serosanguineous -Wound Margin Distinct, Outline Attached -Granulation Amt Small (1-33%) -Granulation Quality [place] -Slough/Fibrin Yes -Necrosis Amt Large (67-100%) -Necrotic Tissue Type Adherent Slough -Structure Exposed N/A -Texture (Mechelle-wound Skin Appearance) Assessed -Moisture (Mechelle-wound Skin Appearance Assessed ) -Color (Mechelle-wound Skin Appearance) Assessed -Temperature ([place]helle-wound Skin No Abnormality Appearance) (Pt Warm) -Tenderness on Palpation (Mechelle-wound No Skin Appearance) -Ulcer Cleansing Rinsed/ Irrigated with Saline -Foul Odor after Cleansing No -Anesthetic Used 4% Lidocaine Solution #3 R 4TH METATARSAL -Combined with other wound No -Current Size (cm) - Length 0.1 -Current Size (cm) - Width 0.1 -Current Size (cm) - Depth 0.1 -Total Square Cm 0.01 -Photo Taken No -Epithelialization Large 67-100% -Tunneling No -Undermining/Tunneling No -Circular Undermining No -Classification - Thickness Full Thickness without Exposed Support Structure -Exudate Amt None Present (0 %) -Wound Margin Distinct, Outline Attached -Granulation Amt Large (67-100%) -Granulation Quality [place] -Slough/Fibrin No -Necrosis Amt None Present (0 %) -Structure Exposed N/A -Texture (Mechelle-wound Skin Appearance) Assessed -Moisture (Mechelle-wound Skin Appearance Assessed ) -Color (Mechelle-wound Skin Appearance) Assessed -Temperature ([place]helle-wound Skin No Abnormality Appearance) (Pt Warm) -Tenderness on Palpation (Mechelle-wound No Skin Appearance) -Ulcer Cleansing Rinsed/ Irrigated with Saline -Foul Odor after Cleansing No -Anesthetic Used 4% Lidocaine Solution #1 L LAT FOOT -Combined with other wound No -Current Size (cm) - Length 0.1 -Current Size (cm) - Width 0.1 -Current Size (cm) - Depth 0.1 -Total Square Cm 0.01 -Photo Taken No -Tunneling No -Undermining/Tunneling No -Circular Undermining No -Classification - Thickness Full Thickness without Exposed Support Structure -Exudate Amt None Present (0 %) -Wound Margin Distinct, Outline Attached -Granulation Amt Large (67-100%) -Granulation Quality [place] -Slough/Fibrin No -Structure Exposed N/A -Texture (Mechelle-wound Skin Appearance) Assessed Callus -Moisture (Mechelle-wound Skin Appearance Assessed ) -Color (M[place]helle-wound Skin Appearance) Assessed -Temperature ([place]helle-wound Skin No Abnormality Appearance) (Pt Warm) -Tenderness on Palpation (Mechelle-wound No Skin Appearance) -Ulcer Cleansing Rinsed/ Irrigated with Saline -Foul Odor after Cleansing No -Anesthetic Used 4% Lidocaine Solution WC - Nurse 2 - General Ulcer CM Notes Start: 01/18/18 11:34 Freq: Status: Active Protocol: Activity Type Activity Date Activity User E-Sign Co-Sign Detail Recorded Client Recorded Date Recorded By Document 01/18/18 11:58 MARJORIE [id number] 01/18/18 12:01 JF Document 01/18/18 12:12 DV [id number] 01/18/18 12:17 DV 01/18/18 01/18/18 11:58 12:12 Wound Center Nurse 2 [Procedure/Treatment] 7-RIGHT RING FINGER -Time 12:12 -Correct Patient Yes -Correct Side, Site, Position Yes -Procedure Performed No -Post Debridement Size (cm) - Length 0.1 -Post Debridement Size (cm) - Width 0.1 -Post Debridement Size (cm) - Depth 0.1 -Total Square Cm 0.01 -Wound/Ulcer Outcome Healed- Epithelialized 6-RIGHT MIDDLE FINGER -Time 12:13 -Correct Patient Yes -Correct Side, Site, Position Yes -Procedure Performed No -Post Debridement Size (cm) - Length 0.1 -Post Debridement Size (cm) - Width 0.1 -Post Debridement Size (cm) - Depth 0.1 -Total Square Cm 0.01 -Wound/Ulcer Outcome Healed- Epithelialized 5-RIGHT INDEX FINGER -Time 12:13 -Correct Patient Yes -Correct Side, Site, Position Yes -Correct Procedure Yes -Procedure Performed Yes -Type of Procedure Debridement -Clinical Debridement Subcutaneous -Post Debridement Size (cm) - Length 0.6 -Post Debridement Size (cm) - Width 0.8 -Post Debridement Size (cm) - Depth 0.1 -Total Square Cm 0.48 -Wound/Ulcer Outcome Not Healed -Ulcer Cleansing Rinsed/ Irrigated with Saline -Foul Odor after Cleansing No -Bioengineered Tissue No -Bleeding Controlled with Pressure -Treatment Response Procedure Tolerated Well #3 R 4TH METATARSAL -Time 11:59 -Correct Patient Yes -Correct Side, Site, Position Yes -Correct Procedure Yes -Procedure Performed Yes -Type of Procedure Debridement -Clinical Debridement Subcutaneous -Post Debridement Size (cm) - Length 0.2 -Post Debridement Size (cm) - Width 0.3 -Post Debridement Size (cm) - Depth 0.1 -Total Square Cm 0.06 -Wound/Ulcer Outcome Not Healed -Ulcer Cleansing Rinsed/ Irrigated with Saline -Foul Odor after Cleansing No -Bioengineered Tissue No -Bleeding Controlled with Pressure -Treatment Response Procedure Tolerated Well #1 L LAT FOOT -Time 11:59 -Correct Patient Yes -Correct Side, Site, Position Yes -Correct Procedure Yes -Procedure Performed Yes -Type of Procedure Debridement -Clinical Debridement Subcutaneous -Post Debridement Size (cm) - Length 0.3 -Post Debridement Size (cm) - Width 0.5 -Post Debridement Size (cm) - Depth 0.1 -Total Square Cm 0.15 -Wound/Ulcer Outcome Not Healed -Ulcer Cleansing Rinsed/ Irrigated with Saline -Foul Odor after Cleansing No -Bioengineered Tissue No -Bleeding Controlled with Pressure -Treatment Response Procedure Tolerated Well [See Physician Procedure note for Specifics] Pain Scale: 0-10 Numeric [Pain] -Is Patient Pain Free? Yes Musculoskeletal: No Muscle Wasting Neurological: Cranial nerves II-XII grossly intact Psych/Mental Status: Normal Affect Debridement Note Post-Debridement Measurements/Treatment WC - Nurse 2 - General Ulcer CM Notes Start: 01/18/18 11:34 Freq: Status: Active Protocol: Activity Type Activity Date Activity User E-Sign Co-Sign Detail Recorded Client Recorded Date Recorded By Document 01/18/18 11:58 JF [id number] 01/18/18 12:01 JF Document 01/18/18 12:12 DV [id number] 01/18/18 12:17 DV 01/18/18 01/18/18 11:58 12:12 Wound Center Nurse 2 7-RIGHT RING FINGER -Time 12:12 -Correct Patient Yes -Correct Side, Site, Position Yes -Procedure Performed No -Post Debridement Size (cm) - Length 0.1 -Post Debridement Size (cm) - Width 0.1 -Post Debridement Size (cm) - Depth 0.1 -Total Square Cm 0.01 -Wound/Ulcer Outcome Healed- Epithelialized 6-RIGHT MIDDLE FINGER -Time 12:13 -Correct Patient Yes -Correct Side, Site, Position Yes -Procedure Performed No -Post Debridement Size (cm) - Length 0.1 -Post Debridement Size (cm) - Width 0.1 -Post Debridement Size (cm) - Depth 0.1 -Total Square Cm 0.01 -Wound/Ulcer Outcome Healed- Epithelialized 5-RIGHT INDEX FINGER -Time 12:13 -Correct Patient Yes -Correct Side, Site, Position Yes -Correct Procedure Yes -Procedure Performed Yes -Type of Procedure Debridement -Clinical Debridement Subcutaneous -Post Debridement Size (cm) - Length 0.6 -Post Debridement Size (cm) - Width 0.8 -Post Debridement Size (cm) - Depth 0.1 -Total Square Cm 0.48 -Wound/Ulcer Outcome Not Healed -Ulcer Cleansing Rinsed/ Irrigated with Saline -Foul Odor after Cleansing No -Bioengineered Tissue No -Bleeding Controlled with Pressure -Treatment Response Procedure Tolerated Well #3 R 4TH METATARSAL -Time 11:59 -Correct Patient Yes -Correct Side, Site, Position Yes -Correct Procedure Yes -Procedure Performed Yes -Type of Procedure Debridement -Clinical Debridement Subcutaneous -Post Debridement Size (cm) - Length 0.2 -Post Debridement Size (cm) - Width 0.3 -Post Debridement Size (cm) - Depth 0.1 -Total Square Cm 0.06 -Wound/Ulcer Outcome Not Healed -Ulcer Cleansing Rinsed/ Irrigated with Saline -Foul Odor after Cleansing No -Bioengineered Tissue No -Bleeding Controlled with Pressure -Treatment Response Procedure Tolerated Well #1 L LAT FOOT -Time 11:59 -Correct Patient Yes -Correct Side, Site, Position Yes -Correct Procedure Yes -Procedure Performed Yes -Type of Procedure Debridement -Clinical Debridement Subcutaneous -Post Debridement Size (cm) - Length 0.3 -Post Debridement Size (cm) - Width 0.5 -Post Debridement Size (cm) - Depth 0.1 -Total Square Cm 0.15 -Wound/Ulcer Outcome Not Healed -Ulcer Cleansing Rinsed/ Irrigated with Saline -Foul Odor after Cleansing No -Bioengineered Tissue No -Bleeding Controlled with Pressure -Treatment Response Procedure Tolerated Well Pain Scale: 0-10 Numeric Is Patient Pain Free? Yes Wound debrided: Right Index Finger Wound Grade/Stage: Stage II Type of Debridement: Excisional debridement Anesthesia Used: 4% Lidocaine Solution Depth: Down to and including healthy tissue, in the subcutaneous layer Percentage of wound debrided: 100 Instrument Used: 5mm curette Tissue Removed: Slough and Devitalized tissue Severity: Fat Layer Exposed Amount of bleeding with debridement: Mild Bleeding Controlled with: Pressure Patient tolerated procedure well Assessment/Plan Active Problems (Last Reviewed 11/01/17 @ 16:03 by Wilmer Cartwright) Ulcer of right foot with fat layer exposed (Chronic) 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 left heel ulcer healed. Right sub-fourth metatarsal head ulcer with fat exposed - improving. Left sub-fifth metatarsal head ulcer with fat exposed - improving. Diabetes with neuropathy. Xerosis. Hammertoes bilateral. Noncompliance. Right Index ( Improving ) , Middle and Ring finger ulcers with Fat layer exposed- Healed -.(sees Dr. Vance) Plan: Right middle and ring finger ulcers have healed. Right index finger ulcer is stable. Minimal improvement in the past week. Debridement done as documented above. Procedure was well-tolerated. Continue Tegan daily to right index finger with Adaptic. Advised to limit tightness of dressing over the right index finger. Continue nifedipine extended release 30 mg daily. Advised to adequately moisturize hands especially at night and to use 100% cotton gloves to help retain moisture. Continue increased protein in diet/ protein supplements. Follow-up in 2 weeks. This note was generated with [email or web address] software. It may contain incorrect words, spelling, and punctuation that were not noted in checking the note before signing.
[2018-01-25 11:26] VITALS: BP 139/80; PULSE 103; RESP 18; TEMP 35.5
--- NOTE | 2018-01-25 12:51 | PCM.WC.PN ---
(1) Ulcer of right foot with fat layer exposed Status: Resolved Current Visit: Yes Code(s): L97.512 - Non-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ulcer of other part of right foot with fat layer exposed (2) Chronic ulcer of left foot with fat layer exposed Status: Resolved Current Visit: Yes Code(s): L97.522 - Non-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ulcer of other part of left foot with fat layer exposed (3) Type 2 diabetes mellitus with diabetic polyneuropathy Status: Chronic Current Visit: Yes Code(s): E11.42 - Type 2 diabetes mellitus with diabetic polyneuropathy (4) Hammertoe of right foot Status: Chronic Current Visit: Yes Code(s): M20.41 - Other hammer toe(s) (acquired), right foot (5) Hammertoe of left foot Status: Chronic Current Visit: Yes Code(s): M20.42 - Other hammer toe(s) (acquired), left foot (6) Xerosis cutis Status: Chronic Current Visit: Yes Code(s): L85.3 - Xerosis cutis Type of Wound Date of Service: 01/25/18 Chief Complaint: Wounds to both feet History of Wound: Mr. Espinoza is a 57 yo with PMH of Diabetes currently returns to clinic for follow-up of ulcers on both feet. He had epi fix applied last week and is kept his dressing is intact. He denies fever, chill, nausea, vomiting. He presents wearing surgical shoes today. He denies known drainage. Progress of Wound: Healed - Physical Exam Vital Signs Temp Pulse Resp BP 95.9 F L 103 H 18 139/80 H 01/25/18 11:26 01/25/18 11:26 01/25/18 11:26 01/25/18 11:26 General: Alert, Oriented x3, Cooperative Extremities: No cyanosis, Capillary Refill Less than 3 Seconds, No Calf Tenderness, Diminished Peripheral Pulses Skin: Ulcer/ Wound - No purulence, no erythema, streaking, no odor, no infection. There is full epithelialization noted at the previous ulcer sites and all wounds are healed today. His dry peeling skin has also improved with application of Lac-Hydrin this past week. His fissures are resolved. Wound Measurements and Assessment WC - Nurse 1 - General Ulcer Measurement Start: 01/18/18 11:34 Freq: Status: Active Protocol: Activity Type Activity Date Activity User E-Sign Co-Sign Detail Recorded Client Recorded Date Recorded By Document 01/25/18 11:26 [id number] 01/25/18 11:31 01/25/18 11:26 Wound Center Nurse 1 [Ulcer Assessment] #1 L LAT FOOT -Combined with other wound No -Current Size (cm) - Length 0.2 -Current Size (cm) - Width 0.6 -Current Size (cm) - Depth 0.1 -Total Square Cm 0.12 -Photo Taken No -Epithelialization Large 67-100% -Tunneling No -Undermining/Tunneling No -Circular Undermining No -Exudate Amt None Present (0 %) -Wound Margin Indistinct, Non -Visible -Granulation Amt Small (1-33%) -Granulation Quality Pale -Slough/Fibrin Yes -Necrosis Amt Large (67-100%) -Necrotic Tissue Type Adherent Slough -Structure Exposed N/A -Texture (Mechelle-wound Skin Appearance) Assessed Callus -Moisture (Mechelle-wound Skin Appearance Assessed ) Dry/Scaly -Color (Mechelle-wound Skin Appearance) Assessed -Temperature (Mechelle-wound Skin No Abnormality Appearance) (Pt Warm) -Tenderness on Palpation (Mechelle-wound No Skin Appearance) -Ulcer Cleansing Wound Cleanser -Foul Odor after Cleansing No -Anesthetic Used 4% Lidocaine Solution [Edema Assessment] -Lower Limb Edema Present No WC - Nurse 2 - General Ulcer CM Notes Start: 01/18/18 11:34 Freq: Status: Active Protocol: Activity Type Activity Date Activity User E-Sign Co-Sign Detail Recorded Client Recorded Date Recorded By Document 01/25/18 11:51 [id number] 01/25/18 11:52 01/25/18 11:51 Pain Scale: 0-10 Numeric [Pain] -Is Patient Pain Free? Yes Musculoskeletal: No Tenderness to Palpation of Joints or Extremities, Muscle Wasting, - - Dorsal lesser toe contraction of prominent metatarsal heads bilateral. Previous amputation noted Neurological: - - Lack of epicritic sensation noted bilateral light touch Psych/Mental Status: Normal Affect, Appropriate Debridement Note Post-Debridement Measurements/Treatment WC - Nurse 2 - General Ulcer CM Notes Start: 01/18/18 11:34 Freq: Status: Active Protocol: Activity Type Activity Date Activity User E-Sign Co-Sign Detail Recorded Client Recorded Date Recorded By Document 01/18/18 11:58 JF [id number] 01/18/18 12:01 JF Document 01/18/18 12:12 DV [id number] 01/18/18 12:17 DV Document 01/25/18 11:51 [email or web address] [id number] 01/25/18 11:52 JF 01/18/18 01/18/18 01/25/18 11:58 12:12 11:51 Wound Center Nurse 2 7-RIGHT RING FINGER -Time 12:12 -Correct Patient Yes -Correct Side, Site, Position Yes -Procedure Performed No -Post Debridement Size (cm) - Length 0.1 -Post Debridement Size (cm) - Width 0.1 -Post Debridement Size (cm) - Depth 0.1 -Total Square Cm 0.01 -Wound/Ulcer Outcome Healed- Epithelialized 6-RIGHT MIDDLE FINGER -Time 12:13 -Correct Patient Yes -Correct Side, Site, Position Yes -Procedure Performed No -Post Debridement Size (cm) - Length 0.1 -Post Debridement Size (cm) - Width 0.1 -Post Debridement Size (cm) - Depth 0.1 -Total Square Cm 0.01 -Wound/Ulcer Outcome Healed- Epithelialized 5-RIGHT INDEX FINGER -Time 12:13 -Correct Patient Yes -Correct Side, Site, Position Yes -Correct Procedure Yes -Procedure Performed Yes -Type of Procedure Debridement -Clinical Debridement Subcutaneous -Post Debridement Size (cm) - Length 0.6 -Post Debridement Size (cm) - Width 0.8 -Post Debridement Size (cm) - Depth 0.1 -Total Square Cm 0.48 -Wound/Ulcer Outcome Not Healed -Ulcer Cleansing Rinsed/ Irrigated with Saline -Foul Odor after Cleansing No -Bioengineered Tissue No -Bleeding Controlled with Pressure -Treatment Response Procedure Tolerated Well #3 R 4TH METATARSAL -Time 11:59 -Correct Patient Yes -Correct Side, Site, Position Yes -Correct Procedure Yes -Procedure Performed Yes -Type of Procedure Debridement -Clinical Debridement Subcutaneous -Post Debridement Size (cm) - Length 0.2 -Post Debridement Size (cm) - Width 0.3 -Post Debridement Size (cm) - Depth 0.1 -Total Square Cm 0.06 -Wound/Ulcer Outcome Not Healed -Ulcer Cleansing Rinsed/ Irrigated with Saline -Foul Odor after Cleansing No -Bioengineered Tissue No -Bleeding Controlled with Pressure -Treatment Response Procedure Tolerated Well #1 L LAT FOOT -Time 11:59 -Correct Patient Yes -Correct Side, Site, Position Yes -Correct Procedure Yes -Procedure Performed Yes -Type of Procedure Debridement -Clinical Debridement Subcutaneous -Post Debridement Size (cm) - Length 0.3 -Post Debridement Size (cm) - Width 0.5 -Post Debridement Size (cm) - Depth 0.1 -Total Square Cm 0.15 -Wound/Ulcer Outcome Not Healed -Ulcer Cleansing Rinsed/ Irrigated with Saline -Foul Odor after Cleansing No -Bioengineered Tissue No -Bleeding Controlled with Pressure -Treatment Response Procedure Tolerated Well Pain Scale: 0-10 Numeric Is Patient Pain Free? Yes Yes No debridement was completed today - Both wound sites are healed Assessment/Plan Active Problems (Last Reviewed 11/01/17 @ 16:03 by Wilmer Cartwright) Skin ulcer of finger with fat layer exposed (Chronic) Right Index Finger Type 2 diabetes mellitus with diabetic polyneuropathy (Chronic) Hammertoe of right foot (Chronic) Hammertoe of left foot (Chronic) Xerosis cutis (Chronic) Assessment: Right sub-fourth metatarsal head ulcer with fat exposed -healed. Left sub-fifth metatarsal head ulcer with fat exposed -healed. Diabetes with neuropathy. Xerosis. Hammertoes bilateral. Noncompliance. Right Index , Middle and Ring finger ulcers with Fat layer exposed.(sees Dr. Vance) Plan: I reviewed and discussed his care plan today. He was reassured both wound sites have healed today and he can discontinue dressing care. To transition back to her right foot extra-depth diabetic shoe. I recommend he wears his surgical shoe on his left foot for an additional 1-2 weeks to continue the skin to remodel. He was reassured there are no signs of infection. To moisturize the adjacent skin to improve skin integrity to his hands and feet with Lac-Hydrin in which a prescription was provided last week. Updated labs and x-rays were ordered and previously reviewed: (labs 11/02/2017) Hemoglobin A1c 6.3%, total protein 7.2, albumin 3.7, creatinine 0.97, white blood cell count 10.25, platelet 345. His last progress note from Dr. Avery Escalante was also reviewed from November 01, 2017 in which it was noted he does also have a diagnosis of raynauds disease noted to the fingers and rest less leg syndrome amongst treatment of his other aformentioned chronic comorbidities. He understands he is at risk for continued infection development, delayed healing. He has nonhealing wounds to his hands and would like to seek intervention. Dr. Vance will see him again next week for this condition and intervention is greatly appreciated. It is noted he was started on oral nifedipine to help with the suspected raynauds. To maintain and improve diabetic control and nutritional supplementation to optimize healing. To take nutritional supplements as advised to optimize healing; a andrzej prescription was previously provided. He will be discharged from the wound center from a foot standpoint and will continue to follow-up for his hands. He is advised to follow-up with at the foot and ankle center the next 1-2 months for palliative care and diabetic foot exam. He is advised to call sooner if he has any questions or concerns.
--- NOTE | 2018-01-25 12:56 | PN.PCM_ITS ---
(1) Ulcer of right foot with fat layer exposed Status: Resolved Current Visit: Yes Code(s): L97.512 - Non-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ulcer of other part of right foot with fat layer exposed (2) Chronic ulcer of left foot with fat layer exposed Status: Resolved Current Visit: Yes Code(s): L97.522 - Non-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ulcer of other part of left foot with fat layer exposed (3) Type 2 diabetes mellitus with diabetic polyneuropathy Status: Chronic Current Visit: Yes Code(s): E11.42 - Type 2 diabetes mellitus with diabetic polyneuropathy (4) Hammertoe of right foot Status: Chronic Current Visit: Yes Code(s): M20.41 - Other hammer toe(s) ( acquired), right foot (5) Hammertoe of left foot Status: Chronic Current Visit: Yes Code(s): M20.42 - Other hammer toe(s) ( acquired), left foot (6) Xerosis cutis Status: Chronic Current Visit: Yes Code(s): L85.3 - Xerosis cutis Type of Wound Date of Service: 01/25/18 Chief Complaint: Wounds to both feet History of Wound: Mr. Espinoza is a 57 yo with PMH of Diabetes currently returns to clinic for follow-up of ulcers on both feet. He had epi fix applied last week and is kept his dressing is intact. He denies fever, chill, nausea, vomiting. He presents wearing surgical shoes today. He denies known drainage. Progress of Wound: Healed - Physical Exam Vital Signs Temp Pulse Resp BP 95.9 F L 103 H 18 139/80 H 01/25/18 11:26 01/25/18 11:26 01/25/18 11:26 01/25/18 11:26 General: Alert, Oriented x3, Cooperative Extremities: No cyanosis, Capillary Refill Less than 3 Seconds, No Calf Tenderness, Diminished Peripheral Pulses Skin: Ulcer/ Wound - No purulence, no erythema, streaking, no odor, no infection. There is full epithelialization noted at the previous ulcer sites and all wounds are healed today. His dry peeling skin has also improved with application of Lac-Hydrin this past week. His fissures are resolved. Wound Measurements and Assessment WC - Nurse 1 - General Ulcer Measurement Start: 01/18/18 11:34 Freq: Status: Active Protocol: Activity Type Activity Date Activity User E-Sign Co-Sign Detail Recorded Client Recorded Date Recorded By Document 01/25/18 11:26 [id number] 01/25/18 11:31 01/25/18 11:26 Wound Center Nurse 1 [Ulcer Assessment] #1 L LAT FOOT -Combined with other wound No -Current Size (cm) - Length 0.2 -Current Size (cm) - Width 0.6 -Current Size (cm) - Depth 0.1 -Total Square Cm 0.12 -Photo Taken No -Epithelialization Large 67-100% -Tunneling No -Undermining/Tunneling No -Circular Undermining No -Exudate Amt None Present (0 %) -Wound Margin Indistinct, Non -Visible -Granulation Amt Small (1-33%) -Granulation Quality Pale -Slough/Fibrin Yes -Necrosis Amt Large (67-100%) -Necrotic Tissue Type Adherent Slough -Structure Exposed N/A -Texture (Mechelle-wound Skin Appearance) Assessed Callus -Moisture (Mechelle-wound Skin Appearance Assessed ) Dry/Scaly -Color (Mechelle-wound Skin Appearance) Assessed -Temperature (Mechelle-wound Skin No Abnormality Appearance) (Pt Warm) -Tenderness on Palpation (Mechelle-wound No Skin Appearance) -Ulcer Cleansing Wound Cleanser -Foul Odor after Cleansing No -Anesthetic Used 4% Lidocaine Solution [Edema Assessment] -Lower Limb Edema Present No WC - Nurse 2 - General Ulcer CM Notes Start: 01/18/18 11:34 Freq: Status: Active Protocol: Activity Type Activity Date Activity User E-Sign Co-Sign Detail Recorded Client Recorded Date Recorded By Document 01/25/18 11:51 [id number] 01/25/18 11:52 01/25/18 11:51 Pain Scale: 0-10 Numeric [Pain] -Is Patient Pain Free? Yes Musculoskeletal: No Tenderness to Palpation of Joints or Extremities, Muscle Wasting, - - Dorsal lesser toe contraction of prominent metatarsal heads bilateral. Previous amputation noted Neurological: - - Lack of epicritic sensation noted bilateral light touch Psych/Mental Status: Normal Affect, Appropriate Debridement Note Post-Debridement Measurements/Treatment WC - Nurse 2 - General Ulcer CM Notes Start: 01/18/18 11:34 Freq: Status: Active Protocol: Activity Type Activity Date Activity User E-Sign Co-Sign Detail Recorded Client Recorded Date Recorded By Document 01/18/18 11:58 JF [id number] 01/18/18 12:01 JF Document 01/18/18 12:12 DV [id number] 01/18/18 12:17 DV Document 01/25/18 11:51 MARJORIE [id number] 01/25/18 11:52 JF 01/18/18 01/18/18 01/25/18 11:58 12:12 11:51 Wound Center Nurse 2 7-RIGHT RING FINGER -Time 12:12 -Correct Patient Yes -Correct Side, Site, Position Yes -Procedure Performed No -Post Debridement Size (cm) - Length 0.1 -Post Debridement Size (cm) - Width 0.1 -Post Debridement Size (cm) - Depth 0.1 -Total Square Cm 0.01 -Wound/Ulcer Outcome Healed- Epithelialized 6-RIGHT MIDDLE FINGER -Time 12:13 -Correct Patient Yes -Correct Side, Site, Position Yes -Procedure Performed No -Post Debridement Size (cm) - Length 0.1 -Post Debridement Size (cm) - Width 0.1 -Post Debridement Size (cm) - Depth 0.1 -Total Square Cm 0.01 -Wound/Ulcer Outcome Healed- Epithelialized 5-RIGHT INDEX FINGER -Time 12:13 -Correct Patient Yes -Correct Side, Site, Position Yes -Correct Procedure Yes -Procedure Performed Yes -Type of Procedure Debridement -Clinical Debridement Subcutaneous -Post Debridement Size (cm) - Length 0.6 -Post Debridement Size (cm) - Width 0.8 -Post Debridement Size (cm) - Depth 0.1 -Total Square Cm 0.48 -Wound/Ulcer Outcome Not Healed -Ulcer Cleansing Rinsed/ Irrigated with Saline -Foul Odor after Cleansing No -Bioengineered Tissue No -Bleeding Controlled with Pressure -Treatment Response Procedure Tolerated Well #3 R 4TH METATARSAL -Time 11:59 -Correct Patient Yes -Correct Side, Site, Position Yes -Correct Procedure Yes -Procedure Performed Yes -Type of Procedure Debridement -Clinical Debridement Subcutaneous -Post Debridement Size (cm) - Length 0.2 -Post Debridement Size (cm) - Width 0.3 -Post Debridement Size (cm) - Depth 0.1 -Total Square Cm 0.06 -Wound/Ulcer Outcome Not Healed -Ulcer Cleansing Rinsed/ Irrigated with Saline -Foul Odor after Cleansing No -Bioengineered Tissue No -Bleeding Controlled with Pressure -Treatment Response Procedure Tolerated Well #1 L LAT FOOT -Time 11:59 -Correct Patient Yes -Correct Side, Site, Position Yes -Correct Procedure Yes -Procedure Performed Yes -Type of Procedure Debridement -Clinical Debridement Subcutaneous -Post Debridement Size (cm) - Length 0.3 -Post Debridement Size (cm) - Width 0.5 -Post Debridement Size (cm) - Depth 0.1 -Total Square Cm 0.15 -Wound/Ulcer Outcome Not Healed -Ulcer Cleansing Rinsed/ Irrigated with Saline -Foul Odor after Cleansing No -Bioengineered Tissue No -Bleeding Controlled with Pressure -Treatment Response Procedure Tolerated Well Pain Scale: 0-10 Numeric Is Patient Pain Free? Yes Yes No debridement was completed today - Both wound sites are healed Assessment/Plan Active Problems (Last Reviewed 11/01/17 @ 16:03 by Wilmer Cartwright) Skin ulcer of finger with fat layer exposed (Chronic) Right Index Finger Type 2 diabetes mellitus with diabetic polyneuropathy (Chronic) Hammertoe of right foot (Chronic) Hammertoe of left foot (Chronic) Xerosis cutis (Chronic) Assessment: Right sub-fourth metatarsal head ulcer with fat exposed -healed. Left sub-fifth metatarsal head ulcer with fat exposed -healed. Diabetes with neuropathy. Xerosis. Hammertoes bilateral. Noncompliance. Right Index , Middle and Ring finger ulcers with Fat layer exposed.(sees Dr. Vance) Plan: I reviewed and discussed his care plan today. He was reassured both wound sites have healed today and he can discontinue dressing care. To transition back to her right foot extra-depth diabetic shoe. I recommend he wears his surgical shoe on his left foot for an additional 1-2 weeks to continue the skin to remodel. He was reassured there are no signs of infection. To moisturize the adjacent skin to improve skin integrity to his hands and feet with Lac-Hydrin in which a prescription was provided last week. Updated labs and x-rays were ordered and previously reviewed: (labs 11/02/2017) Hemoglobin A1c 6.3%, total protein 7.2, albumin 3.7, creatinine 0.97, white blood cell count 10.25, platelet 345. His last progress note from Dr. Avery Escalante was also reviewed from November 01, 2017 in which it was noted he does also have a diagnosis of raynauds disease noted to the fingers and rest less leg syndrome amongst treatment of his other aformentioned chronic comorbidities. He understands he is at risk for continued infection development , delayed healing. He has nonhealing wounds to his hands and would like to seek intervention. Dr. Vance will see him again next week for this condition and intervention is greatly appreciated. It is noted he was started on oral nifedipine to help with the suspected raynauds. To maintain and improve diabetic control and nutritional supplementation to optimize healing. To take nutritional supplements as advised to optimize healing; a andrzej prescription was previously provided. He will be discharged from the wound center from a foot standpoint and will continue to follow-up for his hands. He is advised to follow-up with at the foot and ankle center the next 1-2 months for palliative care and diabetic foot exam. He is advised to call sooner if he has any questions or concerns.
[2018-02-09 11:52] VITALS: BP 148/80; PULSE 87; RESP 20; TEMP 36.7
--- NOTE | 2018-02-09 17:10 | PCM.WC.PN ---
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 Type of Wound Date of Service: 02/09/18 Chief Complaint: Wounds to both feet History of Wound: Mr. Espinoza is a 57yo with PMH of Diabetes currently seeing Dr Aparicio for lower extremity ulcers. I was asked to see him for chronic ulcers of his right index, middle and ring fingers. He is a [place] and has chronic upper extremity callus and has had ulcers which have typically healed well however, current episodes of his right middle and ring fingers have persisted despite management with neosporin application. There is no significant callous of his right index finger however, he noted the ulcer sometime in September after he had been in 0 degree weather with exposed hands for a long time. He reports pain in that digit but denies any discharge from the site. He has also been applying Neosporin without any significant improvement. Progress of Wound: Improving. Other digital ulcers stay healed. - Physical Exam Vital Signs Temp Pulse Resp BP 98.1 F 87 20 H 148/80 H 02/09/18 11:52 02/09/18 11:52 02/09/18 11:52 02/09/18 11:52 General: Alert, Oriented x3, Cooperative, No apparent distress HEENT: Atraumatic, Normocephalic Oral: Moist Mucosa Neck: Supple Lungs: Normal air movement Cardiovascular: Regular rate Skin: Ulcer/ Wound Wound Measurements and Assessment WC - Nurse 1 - General Ulcer Measurement Start: 01/18/18 11:34 Freq: Status: Active Protocol: Activity Type Activity Date Activity User E-Sign Co-Sign Detail Recorded Client Recorded Date Recorded By Document 02/09/18 11:52 YOVANY [id number] 02/09/18 12:01 YOVANY 02/09/18 11:52 Wound Center Nurse 1 [Ulcer Assessment] 5-RIGHT INDEX FINGER -Combined with other wound No -Current Size (cm) - Length 0.5 -Current Size (cm) - Width 0.7 -Current Size (cm) - Depth 0.2 -Total Square Cm 0.35 -Date of Last Picture (Recall this 02/09/18 field) -Photo Taken Yes -Epithelialization None Present -Tunneling No -Undermining/Tunneling No -Circular Undermining No -Classification - Thickness Full Thickness without Exposed Support Structure -Exudate Amt Small (1-33%) -Exudate Type Serous -Wound Margin Distinct, Outline Attached -Granulation Amt None Present (0 %) -Granulation Quality N/A -Slough/Fibrin Yes -Necrosis Amt None Present (0 %) -Necrotic Tissue Type Adherent Slough -Structure Exposed N/A -Texture (Mechelle-wound Skin Appearance) No Abnormality -Moisture (Mechelle-wound Skin Appearance No Abnormality ) -Color (Mechelle-wound Skin Appearance) No Abnormality -Temperature (Mechelle-wound Skin No Abnormality Appearance) (Pt Warm) -Tenderness on Palpation (Mechelle-wound Yes Skin Appearance) -Ulcer Cleansing Rinsed/ Irrigated with Saline -Foul Odor after Cleansing No -Anesthetic Used 5% Lidocaine Gel WC - Nurse 2 - General Ulcer CM Notes Start: 01/18/18 11:34 Freq: Status: Active Protocol: Activity Type Activity Date Activity User E-Sign Co-Sign Detail Recorded Client Recorded Date Recorded By Document 02/09/18 12:42 DV [id number] 02/09/18 12:44 DV 02/09/18 12:42 Wound Center Nurse 2 [Procedure/Treatment] -Time 12:43 -Correct Patient Yes -Correct Side, Site, Position Yes -Correct Procedure Yes -Procedure Performed Yes -Type of Procedure Debridement -Clinical Debridement Subcutaneous -Post Debridement Size (cm) - Length 0.4 -Post Debridement Size (cm) - Width 0.5 -Post Debridement Size (cm) - Depth 0.1 -Total Square Cm 0.20 -Wound/Ulcer Outcome Not Healed -Ulcer Cleansing Rinsed/ Irrigated with Saline -Foul Odor after Cleansing No -Bioengineered Tissue No -Bleeding Controlled with Pressure -Treatment Response Procedure Tolerated Well [See Physician Procedure note for Specifics] Musculoskeletal: No Muscle Wasting Neurological: Cranial nerves II-XII grossly intact Psych/Mental Status: Normal Affect Debridement Note Post-Debridement Measurements/Treatment WC - Nurse 2 - General Ulcer CM Notes Start: 01/18/18 11:34 Freq: Status: Active Protocol: Activity Type Activity Date Activity User E-Sign Co-Sign Detail Recorded Client Recorded Date Recorded By Document 01/18/18 11:58 [id number] 01/18/18 12:01 Document 01/18/18 12:12 DV [id number] 01/18/18 12:17 DV Document 01/25/18 11:51 [id number] 01/25/18 11:52 Document 02/09/18 12:42 DV [id number] 02/09/18 12:44 DV 01/18/18 01/18/18 01/25/18 11:58 12:12 11:51 Wound Center Nurse 2 7-RIGHT RING FINGER -Time 12:12 -Correct Patient Yes -Correct Side, Site, Position Yes -Procedure Performed No -Post Debridement Size (cm) - Length 0.1 -Post Debridement Size (cm) - Width 0.1 -Post Debridement Size (cm) - Depth 0.1 -Total Square Cm 0.01 -Wound/Ulcer Outcome Healed- Epithelialized 6-RIGHT MIDDLE FINGER -Time 12:13 -Correct Patient Yes -Correct Side, Site, Position Yes -Procedure Performed No -Post Debridement Size (cm) - Length 0.1 -Post Debridement Size (cm) - Width 0.1 -Post Debridement Size (cm) - Depth 0.1 -Total Square Cm 0.01 -Wound/Ulcer Outcome Healed- Epithelialized 5-RIGHT INDEX FINGER -Time 12:13 -Correct Patient Yes -Correct Side, Site, Position Yes -Correct Procedure Yes -Procedure Performed Yes -Type of Procedure Debridement -Clinical Debridement Subcutaneous -Post Debridement Size (cm) - Length 0.6 -Post Debridement Size (cm) - Width 0.8 -Post Debridement Size (cm) - Depth 0.1 -Total Square Cm 0.48 -Wound/Ulcer Outcome Not Healed -Ulcer Cleansing Rinsed/ Irrigated with Saline -Foul Odor after Cleansing No -Bioengineered Tissue No -Bleeding Controlled with Pressure -Treatment Response Procedure Tolerated Well #3 R 4TH METATARSAL -Time 11:59 -Correct Patient Yes -Correct Side, Site, Position Yes -Correct Procedure Yes -Procedure Performed Yes -Type of Procedure Debridement -Clinical Debridement Subcutaneous -Post Debridement Size (cm) - Length 0.2 -Post Debridement Size (cm) - Width 0.3 -Post Debridement Size (cm) - Depth 0.1 -Total Square Cm 0.06 -Wound/Ulcer Outcome Not Healed -Ulcer Cleansing Rinsed/ Irrigated with Saline -Foul Odor after Cleansing No -Bioengineered Tissue No -Bleeding Controlled with Pressure -Treatment Response Procedure Tolerated Well #1 L LAT FOOT -Time 11:59 -Correct Patient Yes -Correct Side, Site, Position Yes -Correct Procedure Yes -Procedure Performed Yes -Type of Procedure Debridement -Clinical Debridement Subcutaneous -Post Debridement Size (cm) - Length 0.3 -Post Debridement Size (cm) - Width 0.5 -Post Debridement Size (cm) - Depth 0.1 -Total Square Cm 0.15 -Wound/Ulcer Outcome Not Healed -Ulcer Cleansing Rinsed/ Irrigated with Saline -Foul Odor after Cleansing No -Bioengineered Tissue No -Bleeding Controlled with Pressure -Treatment Response Procedure Tolerated Well Pain Scale: 0-10 Numeric Is Patient Pain Free? Yes Yes 02/09/18 12:42 Wound Center Nurse 2 7-RIGHT RING FINGER -Time -Correct Patient -Correct Side, Site, Position -Procedure Performed -Post Debridement Size (cm) - Length -Post Debridement Size (cm) - Width -Post Debridement Size (cm) - Depth -Total Square Cm -Wound/Ulcer Outcome 6-RIGHT MIDDLE FINGER -Time -Correct Patient -Correct Side, Site, Position -Procedure Performed -Post Debridement Size (cm) - Length -Post Debridement Size (cm) - Width -Post Debridement Size (cm) - Depth -Total Square Cm -Wound/Ulcer Outcome 5-RIGHT INDEX FINGER -Time 12:43 -Correct Patient Yes -Correct Side, Site, Position Yes -Correct Procedure Yes -Procedure Performed Yes -Type of Procedure Debridement -Clinical Debridement Subcutaneous -Post Debridement Size (cm) - Length 0.4 -Post Debridement Size (cm) - Width 0.5 -Post Debridement Size (cm) - Depth 0.1 -Total Square Cm 0.20 -Wound/Ulcer Outcome Not Healed -Ulcer Cleansing Rinsed/ Irrigated with Saline -Foul Odor after Cleansing No -Bioengineered Tissue No -Bleeding Controlled with Pressure -Treatment Response Procedure Tolerated Well #3 R 4TH METATARSAL -Time -Correct Patient -Correct Side, Site, Position -Correct Procedure -Procedure Performed -Type of Procedure -Clinical Debridement -Post Debridement Size (cm) - Length -Post Debridement Size (cm) - Width -Post Debridement Size (cm) - Depth -Total Square Cm -Wound/Ulcer Outcome -Ulcer Cleansing -Foul Odor after Cleansing -Bioengineered Tissue -Bleeding Controlled with -Treatment Response #1 L LAT FOOT -Time -Correct Patient -Correct Side, Site, Position -Correct Procedure -Procedure Performed -Type of Procedure -Clinical Debridement -Post Debridement Size (cm) - Length -Post Debridement Size (cm) - Width -Post Debridement Size (cm) - Depth -Total Square Cm -Wound/Ulcer Outcome -Ulcer Cleansing -Foul Odor after Cleansing -Bioengineered Tissue -Bleeding Controlled with -Treatment Response Pain Scale: 0-10 Numeric Is Patient Pain Free? Wound debrided: Right Index finger Wound Grade/Stage: Stage II Type of Debridement: Excisional debridement Anesthesia Used: 4% Lidocaine Solution Depth: Down to and including healthy tissue, in the subcutaneous layer Percentage of wound debrided: 100 Instrument Used: 5mm curette Tissue Removed: Slough and devitalized tissue Severity: Fat Layer Exposed Amount of bleeding with debridement: Mild Bleeding Controlled with: Pressure Patient tolerated procedure well Assessment/Plan Active Problems (Last Reviewed 11/01/17 @ 16:03 by Wilmer Cartwright) Skin ulcer of finger with fat layer exposed (Chronic) Right Index Finger Type 2 diabetes mellitus with diabetic polyneuropathy (Chronic) Hammertoe of right foot (Chronic) Hammertoe of left foot (Chronic) Xerosis cutis (Chronic) Assessment: Right Middle and Ring finger ulcers with Fat layer exposed - Healed. Right Index finger ulcer possible due to vasoconstriction/raynaud's Plan: Right middle and ring fingers stay healed. He continues to moisturize as instructed. Right index finger ulcer improving. He is currently on nifedipine for vasodilatation. Debridement done as documented above. Procedure was well-tolerated. Continue Tegan with Adaptic over top and loose gauze dressing. Change daily. Increase protein intake encouraged. 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 This note was generated with [employer] software. It may contain incorrect words, spelling, and punctuation that were not noted in checking the note before signing.
--- NOTE | 2018-02-09 17:17 | PN.PCM_ITS ---
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 Type of Wound Date of Service: 02/09/18 Chief Complaint: Wounds to both feet History of Wound: Mr. Espinoza is a 57yo with PMH of Diabetes currently seeing Dr Aparicio for lower extremity ulcers. I was asked to see him for chronic ulcers of his right index, middle and ring fingers. He is a [place] and has chronic upper extremity callus and has had ulcers which have typically healed well however, current episodes of his right middle and ring fingers have persisted despite management with neosporin application. There is no significant callous of his right index finger however, he noted the ulcer sometime in September after he had been in 0 degree weather with exposed hands for a long time. He reports pain in that digit but denies any discharge from the site. He has also been applying Neosporin without any significant improvement. Progress of Wound: Improving. Other digital ulcers stay healed. - Physical Exam Vital Signs Temp Pulse Resp BP 98.1 F 87 20 H 148/80 H 02/09/18 11:52 02/09/18 11:52 02/09/18 11:52 02/09/18 11:52 General: Alert, Oriented x3, Cooperative, No apparent distress HEENT: Atraumatic, Normocephalic Oral: Moist Mucosa Neck: Supple Lungs: Normal air movement Cardiovascular: Regular rate Skin: Ulcer/ Wound Wound Measurements and Assessment WC - Nurse 1 - General Ulcer Measurement Start: 01/18/18 11:34 Freq: Status: Active Protocol: Activity Type Activity Date Activity User E-Sign Co-Sign Detail Recorded Client Recorded Date Recorded By Document 02/09/18 11:52 YOVANY [id number] 02/09/18 12:01 YOVANY 02/09/18 11:52 Wound Center Nurse 1 [Ulcer Assessment] 5-RIGHT INDEX FINGER -Combined with other wound No -Current Size (cm) - Length 0.5 -Current Size (cm) - Width 0.7 -Current Size (cm) - Depth 0.2 -Total Square Cm 0.35 -Date of Last Picture (Recall this 02/09/18 field) -Photo Taken Yes -Epithelialization None Present -Tunneling No -Undermining/Tunneling No -Circular Undermining No -Classification - Thickness Full Thickness without Exposed Support Structure -Exudate Amt Small (1-33%) -Exudate Type Serous -Wound Margin Distinct, Outline Attached -Granulation Amt None Present (0 %) -Granulation Quality N/A -Slough/Fibrin Yes -Necrosis Amt None Present (0 %) -Necrotic Tissue Type Adherent Slough -Structure Exposed N/A -Texture (Mechelle-wound Skin Appearance) No Abnormality -Moisture (Mechelle-wound Skin Appearance No Abnormality ) -Color (Mechelle-wound Skin Appearance) No Abnormality -Temperature (Mechelle-wound Skin No Abnormality Appearance) (Pt Warm) -Tenderness on Palpation (Mechelle-wound Yes Skin Appearance) -Ulcer Cleansing Rinsed/ Irrigated with Saline -Foul Odor after Cleansing No -Anesthetic Used 5% Lidocaine Gel WC - Nurse 2 - General Ulcer CM Notes Start: 01/18/18 11:34 Freq: Status: Active Protocol: Activity Type Activity Date Activity User E-Sign Co-Sign Detail Recorded Client Recorded Date Recorded By Document 02/09/18 12:42 DV [id number] 02/09/18 12:44 DV 02/09/18 12:42 Wound Center Nurse 2 [Procedure/Treatment] -Time 12:43 -Correct Patient Yes -Correct Side, Site, Position Yes -Correct Procedure Yes -Procedure Performed Yes -Type of Procedure Debridement -Clinical Debridement Subcutaneous -Post Debridement Size (cm) - Length 0.4 -Post Debridement Size (cm) - Width 0.5 -Post Debridement Size (cm) - Depth 0.1 -Total Square Cm 0.20 -Wound/Ulcer Outcome Not Healed -Ulcer Cleansing Rinsed/ Irrigated with Saline -Foul Odor after Cleansing No -Bioengineered Tissue No -Bleeding Controlled with Pressure -Treatment Response Procedure Tolerated Well [See Physician Procedure note for Specifics] Musculoskeletal: No Muscle Wasting Neurological: Cranial nerves II-XII grossly intact Psych/Mental Status: Normal Affect Debridement Note Post-Debridement Measurements/Treatment WC - Nurse 2 - General Ulcer CM Notes Start: 01/18/18 11:34 Freq: Status: Active Protocol: Activity Type Activity Date Activity User E-Sign Co-Sign Detail Recorded Client Recorded Date Recorded By Document 01/18/18 11:58 [id number] 01/18/18 12:01 Document 01/18/18 12:12 DV [id number] 01/18/18 12:17 DV Document 01/25/18 11:51 [id number] 01/25/18 11:52 Document 02/09/18 12:42 DV [id number] 02/09/18 12:44 DV 01/18/18 01/18/18 01/25/18 11:58 12:12 11:51 Wound Center Nurse 2 7-RIGHT RING FINGER -Time 12:12 -Correct Patient Yes -Correct Side, Site, Position Yes -Procedure Performed No -Post Debridement Size (cm) - Length 0.1 -Post Debridement Size (cm) - Width 0.1 -Post Debridement Size (cm) - Depth 0.1 -Total Square Cm 0.01 -Wound/Ulcer Outcome Healed- Epithelialized 6-RIGHT MIDDLE FINGER -Time 12:13 -Correct Patient Yes -Correct Side, Site, Position Yes -Procedure Performed No -Post Debridement Size (cm) - Length 0.1 -Post Debridement Size (cm) - Width 0.1 -Post Debridement Size (cm) - Depth 0.1 -Total Square Cm 0.01 -Wound/Ulcer Outcome Healed- Epithelialized 5-RIGHT INDEX FINGER -Time 12:13 -Correct Patient Yes -Correct Side, Site, Position Yes -Correct Procedure Yes -Procedure Performed Yes -Type of Procedure Debridement -Clinical Debridement Subcutaneous -Post Debridement Size (cm) - Length 0.6 -Post Debridement Size (cm) - Width 0.8 -Post Debridement Size (cm) - Depth 0.1 -Total Square Cm 0.48 -Wound/Ulcer Outcome Not Healed -Ulcer Cleansing Rinsed/ Irrigated with Saline -Foul Odor after Cleansing No -Bioengineered Tissue No -Bleeding Controlled with Pressure -Treatment Response Procedure Tolerated Well #3 R 4TH METATARSAL -Time 11:59 -Correct Patient Yes -Correct Side, Site, Position Yes -Correct Procedure Yes -Procedure Performed Yes -Type of Procedure Debridement -Clinical Debridement Subcutaneous -Post Debridement Size (cm) - Length 0.2 -Post Debridement Size (cm) - Width 0.3 -Post Debridement Size (cm) - Depth 0.1 -Total Square Cm 0.06 -Wound/Ulcer Outcome Not Healed -Ulcer Cleansing Rinsed/ Irrigated with Saline -Foul Odor after Cleansing No -Bioengineered Tissue No -Bleeding Controlled with Pressure -Treatment Response Procedure Tolerated Well #1 L LAT FOOT -Time 11:59 -Correct Patient Yes -Correct Side, Site, Position Yes -Correct Procedure Yes -Procedure Performed Yes -Type of Procedure Debridement -Clinical Debridement Subcutaneous -Post Debridement Size (cm) - Length 0.3 -Post Debridement Size (cm) - Width 0.5 -Post Debridement Size (cm) - Depth 0.1 -Total Square Cm 0.15 -Wound/Ulcer Outcome Not Healed -Ulcer Cleansing Rinsed/ Irrigated with Saline -Foul Odor after Cleansing No -Bioengineered Tissue No -Bleeding Controlled with Pressure -Treatment Response Procedure Tolerated Well Pain Scale: 0-10 Numeric Is Patient Pain Free? Yes Yes 02/09/18 12:42 Wound Center Nurse 2 7-RIGHT RING FINGER -Time -Correct Patient -Correct Side, Site, Position -Procedure Performed -Post Debridement Size (cm) - Length -Post Debridement Size (cm) - Width -Post Debridement Size (cm) - Depth -Total Square Cm -Wound/Ulcer Outcome 6-RIGHT MIDDLE FINGER -Time -Correct Patient -Correct Side, Site, Position -Procedure Performed -Post Debridement Size (cm) - Length -Post Debridement Size (cm) - Width -Post Debridement Size (cm) - Depth -Total Square Cm -Wound/Ulcer Outcome 5-RIGHT INDEX FINGER -Time 12:43 -Correct Patient Yes -Correct Side, Site, Position Yes -Correct Procedure Yes -Procedure Performed Yes -Type of Procedure Debridement -Clinical Debridement Subcutaneous -Post Debridement Size (cm) - Length 0.4 -Post Debridement Size (cm) - Width 0.5 -Post Debridement Size (cm) - Depth 0.1 -Total Square Cm 0.20 -Wound/Ulcer Outcome Not Healed -Ulcer Cleansing Rinsed/ Irrigated with Saline -Foul Odor after Cleansing No -Bioengineered Tissue No -Bleeding Controlled with Pressure -Treatment Response Procedure Tolerated Well #3 R 4TH METATARSAL -Time -Correct Patient -Correct Side, Site, Position -Correct Procedure -Procedure Performed -Type of Procedure -Clinical Debridement -Post Debridement Size (cm) - Length -Post Debridement Size (cm) - Width -Post Debridement Size (cm) - Depth -Total Square Cm -Wound/Ulcer Outcome -Ulcer Cleansing -Foul Odor after Cleansing -Bioengineered Tissue -Bleeding Controlled with -Treatment Response #1 L LAT FOOT -Time -Correct Patient -Correct Side, Site, Position -Correct Procedure -Procedure Performed -Type of Procedure -Clinical Debridement -Post Debridement Size (cm) - Length -Post Debridement Size (cm) - Width -Post Debridement Size (cm) - Depth -Total Square Cm -Wound/Ulcer Outcome -Ulcer Cleansing -Foul Odor after Cleansing -Bioengineered Tissue -Bleeding Controlled with -Treatment Response Pain Scale: 0-10 Numeric Is Patient Pain Free? Wound debrided: Right Index finger Wound Grade/Stage: Stage II Type of Debridement: Excisional debridement Anesthesia Used: 4% Lidocaine Solution Depth: Down to and including healthy tissue, in the subcutaneous layer Percentage of wound debrided: 100 Instrument Used: 5mm curette Tissue Removed: Slough and devitalized tissue Severity: Fat Layer Exposed Amount of bleeding with debridement: Mild Bleeding Controlled with: Pressure Patient tolerated procedure well Assessment/Plan Active Problems (Last Reviewed 11/01/17 @ 16:03 by Wilmer Cartwright) Skin ulcer of finger with fat layer exposed (Chronic) Right Index Finger Type 2 diabetes mellitus with diabetic polyneuropathy (Chronic) Hammertoe of right foot (Chronic) Hammertoe of left foot (Chronic) Xerosis cutis (Chronic) Assessment: Right Middle and Ring finger ulcers with Fat layer exposed - Healed. Right Index finger ulcer possible due to vasoconstriction/raynaud's Plan: Right middle and ring fingers stay healed. He continues to moisturize as instructed. Right index finger ulcer improving. He is currently on nifedipine for vasodilatation. Debridement done as documented above. Procedure was well- tolerated. Continue Tegan with Adaptic over top and loose gauze dressing. Change daily. Increase protein intake encouraged. 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 This note was generated with [employer] software. It may contain incorrect words, spelling, and punctuation that were not noted in checking the note before signing.
== END 2018-02-13 23:59 ==
LOC: WC 11:00
PROVIDERS: Family Provider Student in an Organized Health Care Education/Training Program; PCP Student in an Organized Health Care Education/Training Program; Visit Provider Podiatrist
DX: E11.621 Type 2 diabetes mellitus with foot ulcer (principal); E11.42 Type 2 diabetes mellitus with diabetic polyneuropathy; L97.522 Non-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ulcer of other part of left foot with fat layer exposed; L97.512 Non-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ulcer of other part of right foot with fat layer exposed; M20.41 Other hammer toe(s) (acquired), right foot; M20.42 Other hammer toe(s) (acquired), left foot; Z91.19 Patient's noncompliance with other medical treatment and regimen; L98.492 Non-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ulcer of skin of other sites with fat layer exposed; L85.3 Xerosis cutis
CPT/HCPCS: 11042; 99212; G0463

== ENCOUNTER 2018-03-16 10:30 | Outpatient (RCR) | payer MEDICAID, SELFPAY ==
[2018-02-14 00:56] VITALS: PULSE 87; RESP 20; TEMP 36.7
[2018-02-16 13:28] VITALS: BP 127/74; PULSE 86; RESP 16; TEMP 36.9
--- NOTE | 2018-02-16 14:55 | RAD_ITS ---
STUDY: X-RAY - RIGHT FOOT CLINICAL: Male, 57 years old. Foot ulcer TECHNIQUE: 3 view(s) of the foot. COMPARISON: None. 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 There is no evidence of fracture or dislocation. There are no definite radiographic findings of osteomyelitis. There are moderate degenerative changes in the midfoot. There are no radiodense foreign bodies. RAD/Foot min 3 Views IMPRESSION: Amputation of the first and second digit at the level of the distal metatarsal. No fracture or dislocation. No radiodense foreign body. No definite radiographic findings of osteomyelitis. Electronically Signed: Mazin Torres, at 16:37 EDT Tel , Service support ,
--- NOTE | 2018-02-16 14:55 | RAD_ITS ---
STUDY: X-RAY - RIGHT ANKLE REASON FOR EXAM: Male, 57 years old. Pain. Ulcer. TECHNIQUE: 3 view(s) of the ankle. COMPARISON: None. FINDINGS: There is no evidence of fracture or dislocation. There are no definite radiographic findings of osteomyelitis. There are no significant degenerative changes. There are no radiodense foreign bodies. There are vascular calcifications noted. RAD/Ankle min 3 Views IMPRESSION: No fracture or dislocation. No definite radiographic findings of osteomyelitis. Electronically Signed: Mazin Torres, at 16:27 EDT Tel , Service support ,
--- NOTE | 2018-02-16 15:00 | RAD_ITS ---
STUDY: X-RAY - RIGHT CALCANEUS REASON FOR EXAM: Male, 57 years old. Also TECHNIQUE: 2 view(s) of the calcaneus were obtained. COMPARISON: None. FINDINGS: There is no evidence of fracture or dislocation. There are no definite radiographic findings of osteomyelitis. There are no radiodense foreign bodies. There are vascular calcifications noted. RAD/Calcaneus min 2 Views IMPRESSION: No fracture or dislocation. No definite radiographic findings of osteomyelitis. Electronically Signed: Mazin Torres, at 16:24 EDT Tel , Service support ,
--- NOTE | 2018-02-16 16:58 | PCM.WC.PN ---
(1) Ulcer of right foot with fat layer exposed Status: Resolved Current Visit: Yes Code(s): L97.512 - Non-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ulcer of other part of right foot with fat layer exposed (2) Skin ulcer of finger with fat layer exposed Status: Chronic Current Visit: Yes Code(s): L98.492 - Non-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ulcer of skin of other sites with fat layer exposed Comment: Right Index Finger (3) Diabetes mellitus type 2 with complications Status: Chronic Current Visit: No Code(s): E11.8 - Type 2 diabetes mellitus with unspecified complications (4) Neuropathy Status: Chronic Current Visit: No Code(s): G62.9 - Polyneuropathy, unspecified Comment: Most likely severe diabetic neuropathy [facility] (5) Type 2 diabetes mellitus with diabetic polyneuropathy Status: Chronic Current Visit: No Code(s): E11.42 - Type 2 diabetes mellitus with diabetic polyneuropathy Type of Wound Date of Service: 02/16/18 Chief Complaint: Right index finger ulcer and Right Foot Ulcer History of Wound: Mr. Espinoza is a 57yo with PMH of Diabetes currently seeing Dr Aparicio for lower extremity ulcers. I was asked to see him for chronic ulcers of his right index, middle and ring fingers. He is a [place] and has chronic upper extremity callus and has had ulcers which have typically healed well however, current episodes of his right middle and ring fingers have persisted despite management with neosporin application. There is no significant callous of his right index finger however, he noted the ulcer sometime in September after he had been in 0 degree weather with exposed hands for a long time. He reports pain in that digit but denies any discharge from the site. He has also been applying Neosporin without any significant improvement. Progress of Wound: Right index finger without any acute complaints or changes however, he presents with a new right foot/heel ulcer/wound. Said to have started after he stepped on a nail ( [place] He pulled the nail off with a pair of pliers. He has subsequently noted swelling of that extremity but denies any discharge from the wound site. He also denies chills, fever or otherwise feeling of unwell. - Physical Exam Vital Signs Temp Pulse Resp BP 98.4 F 86 16 127/74 H 02/16/18 13:28 02/16/18 13:28 02/16/18 13:28 02/16/18 13:28 General: Alert, Oriented x3, Cooperative, No apparent distress HEENT: Atraumatic, Normocephalic Oral: Moist Mucosa Neck: Supple Lungs: Normal air movement Cardiovascular: Regular rate Abdomen: Non Tender Extremities: No cyanosis, Edema Skin: Ulcer/ Wound Wound Measurements and Assessment WC - Nurse 1 - General Ulcer Measurement Start: 02/16/18 13:28 Freq: Status: Active Protocol: Activity Type Activity Date Activity User E-Sign Co-Sign Detail Recorded Client Recorded Date Recorded By Document 02/16/18 13:28 [facility] [id number] 02/16/18 13:43 [facility] 02/16/18 13:28 Wound Center Nurse 1 [Ulcer Assessment] #8- RT HEEL PLANTAR ASPECT -Combined with other wound No -Current Size (cm) - Length 0.6 -Current Size (cm) - Width 0.5 -Current Size (cm) - Depth 0.3 -Total Square Cm 0.30 -Date of Last Picture (Recall this 02/16/18 field) -Photo Taken Yes -Epithelialization None Present -Tunneling No -Undermining/Tunneling No -Circular Undermining No -Exudate Amt Small (1-33%) -Exudate Type Serosanguineous -Wound Margin Distinct, Outline Attached -Granulation Amt Large (67-100%) -Granulation Quality [place] -Slough/Fibrin No -Necrosis Amt None Present (0 %) -Texture (Mechelle-wound Skin Appearance) Scarring -Moisture (Mechelle-wound Skin Appearance Maceration ) -Color (Mechelle-wound Skin Appearance) Palor -Temperature (Mechelle-wound Skin No Abnormality Appearance) (Pt Warm) -Tenderness on Palpation (Mechelle-wound No Skin Appearance) -Ulcer Cleansing Rinsed/ Irrigated with Saline -Foul Odor after Cleansing No -Anesthetic Used 5% Lidocaine Gel 5-RIGHT INDEX FINGER -Combined with other wound No -Current Size (cm) - Length 0.3 -Current Size (cm) - Width 0.6 -Current Size (cm) - Depth 0.1 -Total Square Cm 0.18 -Photo Taken No -Epithelialization None Present -Tunneling No -Undermining/Tunneling No -Circular Undermining No -Exudate Amt Small (1-33%) -Exudate Type Serosanguineous -Wound Margin Distinct, Outline Attached -Granulation Amt None Present (0 %) -Slough/Fibrin Yes -Necrosis Amt Large (67-100%) -Necrotic Tissue Type Adherent Slough -Structure Exposed N/A -Texture (Mechelle-wound Skin Appearance) Callus Scarring -Moisture (Mechelle-wound Skin Appearance Maceration ) Dry/Scaly -Color (Mechelle-wound Skin Appearance) Assessed -Temperature (Mechelle-wound Skin No Abnormality Appearance) (Pt Warm) -Tenderness on Palpation (Mechelle-wound Yes Skin Appearance) -Ulcer Cleansing Rinsed/ Irrigated with Saline -Foul Odor after Cleansing No -Anesthetic Used 5% Lidocaine Gel [Edema Assessment] -Lower Limb Edema Present Yes -Right Calf (cm) 37.5 -Right Ankle (cm) 22.8 WC - Nurse 2 - General Ulcer CM Notes Start: 02/16/18 13:28 Freq: Status: Active Protocol: Activity Type Activity Date Activity User E-Sign Co-Sign Detail Recorded Client Recorded Date Recorded By Document 02/16/18 14:02 MW [id number] 02/16/18 14:17 MW 02/16/18 14:02 Wound Center Nurse 2 [Procedure/Treatment] #8- RT HEEL PLANTAR ASPECT -Time 14:03 -Correct Patient Yes -Correct Side, Site, Position Yes -Correct Procedure Yes -Procedure Performed Yes -Type of Procedure Debridement -Clinical Debridement Subcutaneous -Post Debridement Size (cm) - Length 0.8 -Post Debridement Size (cm) - Width 0.7 -Post Debridement Size (cm) - Depth 0.4 -Total Square Cm 0.56 -Wound/Ulcer Outcome Not Healed -Ulcer Cleansing Rinsed/ Irrigated with Saline -Foul Odor after Cleansing No -Bioengineered Tissue No -Bleeding Controlled with Pressure -Treatment Response Procedure Tolerated Well 5-RIGHT INDEX FINGER -Time 14:03 -Correct Patient Yes -Correct Side, Site, Position Yes -Correct Procedure Yes -Procedure Performed Yes -Type of Procedure Debridement -Clinical Debridement Subcutaneous -Post Debridement Size (cm) - Length 0.3 -Post Debridement Size (cm) - Width 0.6 -Post Debridement Size (cm) - Depth 0.1 -Total Square Cm 0.18 -Wound/Ulcer Outcome Not Healed -Ulcer Cleansing Rinsed/ Irrigated with Saline -Foul Odor after Cleansing No -Bioengineered Tissue No -Bleeding Controlled with Pressure -Treatment Response Procedure Tolerated Well [See Physician Procedure note for Specifics] Pain Scale: 0-10 Numeric [Pain] -Is Patient Pain Free? Yes Musculoskeletal: No Muscle Wasting Neurological: Cranial nerves II-XII grossly intact Psych/Mental Status: Normal Affect Debridement Note Post-Debridement Measurements/Treatment WC - Nurse 2 - General Ulcer CM Notes Start: 02/16/18 13:28 Freq: Status: Active Protocol: Activity Type Activity Date Activity User E-Sign Co-Sign Detail Recorded Client Recorded Date Recorded By Document 02/16/18 14:02 MW [id number] 02/16/18 14:17 MW 02/16/18 14:02 Wound Center Nurse 2 #8- RT HEEL PLANTAR ASPECT -Time 14:03 -Correct Patient Yes -Correct Side, Site, Position Yes -Correct Procedure Yes -Procedure Performed Yes -Type of Procedure Debridement -Clinical Debridement Subcutaneous -Post Debridement Size (cm) - Length 0.8 -Post Debridement Size (cm) - Width 0.7 -Post Debridement Size (cm) - Depth 0.4 -Total Square Cm 0.56 -Wound/Ulcer Outcome Not Healed -Ulcer Cleansing Rinsed/ Irrigated with Saline -Foul Odor after Cleansing No -Bioengineered Tissue No -Bleeding Controlled with Pressure -Treatment Response Procedure Tolerated Well 5-RIGHT INDEX FINGER -Time 14:03 -Correct Patient Yes -Correct Side, Site, Position Yes -Correct Procedure Yes -Procedure Performed Yes -Type of Procedure Debridement -Clinical Debridement Subcutaneous -Post Debridement Size (cm) - Length 0.3 -Post Debridement Size (cm) - Width 0.6 -Post Debridement Size (cm) - Depth 0.1 -Total Square Cm 0.18 -Wound/Ulcer Outcome Not Healed -Ulcer Cleansing Rinsed/ Irrigated with Saline -Foul Odor after Cleansing No -Bioengineered Tissue No -Bleeding Controlled with Pressure -Treatment Response Procedure Tolerated Well Pain Scale: 0-10 Numeric Is Patient Pain Free? Yes Wound debrided: Right Index finger Wound Grade/Stage: Stage II Type of Debridement: Excisional debridement Anesthesia Used: 4% Lidocaine Solution Depth: Down to and including healthy tissue, in the subcutaneous layer Percentage of wound debrided: 100 Instrument Used: 3mm curette Tissue Removed: Slough and devitalized tissue Severity: Fat Layer Exposed Amount of bleeding with debridement: Mild Bleeding Controlled with: Pressure Patient tolerated procedure well - Additional Wound Wound debrided: Right Foot ( Heel pad ) Wound Grade/Stage: Stage III Type of Debridement: Excisional debridement Anesthesia Used: 4% Lidocaine Solution Depth: Down to and including healthy tissue, in the subcutaneous layer Percentage of wound debrided: 100 Instrument Used: 5mm curette Tissue Removed: Slough and devitalized tissue Severity: Fat Layer Exposed Amount of bleeding with debridement: Mild Bleeding Controlled with: Pressure Patient tolerated procedure: Patient tolerated procedure well Assessment/Plan Clinical Impression(s) from Imaging Studies Ankle X-Ray 02/16/18 14:55 IMPRESSION: No fracture or dislocation. No definite radiographic findings of osteomyelitis. 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 No fracture or dislocation. No radiodense foreign body. No definite radiographic findings of osteomyelitis. Electronically Signed: Mazin Torres, at 16:37 EDT Tel , Service support , [facility] [place] X-ray 02/16/18 15:00 IMPRESSION: No fracture or dislocation. No definite radiographic findings of osteomyelitis. Electronically Signed: Mazin Torres, at 16:24 EDT Tel , Service support , Active Problems (Last Reviewed 11/01/17 @ 16:03 by Wilmer Cartwright) Skin ulcer of finger with fat layer exposed (Chronic) Right Index Finger Assessment: Right Middle and Ring finger ulcers with Fat layer exposed - Healed. Right Index finger ulcer possible due to vasoconstriction/raynaud's. Right Foot traumatic wound/ulcer with fat layer exposed Plan: Mr Espinoza presents with a new right foot ulcer after a penetrating nail injury. He has applied hydrogel to the wound since episode. Last Tetanus shot was several years ago '. Right middle and ring fingers stay healed. He continues to moisturize as instructed. Right index finger ulcer improving. He is currently on nifedipine for vasodilatation. Debridement of both ulcers done as documented above. Procedure was well-tolerated. Continue Tegan with Adaptic over top and loose gauze dressing to right index finger. Tegan with adpatic over top to right foot ulcer. Change daily. Xray and cultures ordered. Advised to get a Tetanus shot. Increase protein intake encouraged. 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 This note was generated with [employer] dictation software. It may contain incorrect words, spelling, and punctuation that were not noted in checking the note before signing.
--- NOTE | 2018-02-16 17:09 | PN.PCM_ITS ---
(1) Ulcer of right foot with fat layer exposed Status: Resolved Current Visit: Yes Code(s): L97.512 - Non-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ulcer of other part of right foot with fat layer exposed (2) Skin ulcer of finger with fat layer exposed Status: Chronic Current Visit: Yes Code(s): L98.492 - Non-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ulcer of skin of other sites with fat layer exposed Comment: Right Index Finger (3) Diabetes mellitus type 2 with complications Status: Chronic Current Visit: No Code(s): E11.8 - Type 2 diabetes mellitus with unspecified complications (4) Neuropathy Status: Chronic Current Visit: No Code(s): G62.9 - Polyneuropathy, unspecified Comment: Most likely severe diabetic neuropathy [facility] (5) Type 2 diabetes mellitus with diabetic polyneuropathy Status: Chronic Current Visit: No Code(s): E11.42 - Type 2 diabetes mellitus with diabetic polyneuropathy Type of Wound Date of Service: 02/16/18 Chief Complaint: Right index finger ulcer and Right Foot Ulcer History of Wound: Mr. Espinoza is a 57yo with PMH of Diabetes currently seeing Dr Aparicio for lower extremity ulcers. I was asked to see him for chronic ulcers of his right index, middle and ring fingers. He is a [place] and has chronic upper extremity callus and has had ulcers which have typically healed well however, current episodes of his right middle and ring fingers have persisted despite management with neosporin application. There is no significant callous of his right index finger however, he noted the ulcer sometime in September after he had been in 0 degree weather with exposed hands for a long time. He reports pain in that digit but denies any discharge from the site. He has also been applying Neosporin without any significant improvement. Progress of Wound: Right index finger without any acute complaints or changes however, he presents with a new right foot/heel ulcer/wound. Said to have started after he stepped on a nail ( through his boot ) [place]. He pulled the nail off with a pair of pliers. He has subsequently noted swelling of that extremity but denies any discharge from the wound site. He also denies chills, fever or otherwise feeling of unwell. - Physical Exam Vital Signs Temp Pulse Resp BP 98.4 F 86 16 127/74 H 02/16/18 13:28 02/16/18 13:28 02/16/18 13:28 02/16/18 13:28 General: Alert, Oriented x3, Cooperative, No apparent distress HEENT: Atraumatic, Normocephalic Oral: Moist Mucosa Neck: Supple Lungs: Normal air movement Cardiovascular: Regular rate Abdomen: Non Tender Extremities: No cyanosis, Edema Skin: Ulcer/ Wound Wound Measurements and Assessment WC - Nurse 1 - General Ulcer Measurement Start: 02/16/18 13:28 Freq: Status: Active Protocol: Activity Type Activity Date Activity User E-Sign Co-Sign Detail Recorded Client Recorded Date Recorded By Document 02/16/18 13:28 [facility] [id number] 02/16/18 13:43 [facility] 02/16/18 13:28 Wound Center Nurse 1 [Ulcer Assessment] #8- RT HEEL PLANTAR ASPECT -Combined with other wound No -Current Size (cm) - Length 0.6 -Current Size (cm) - Width 0.5 -Current Size (cm) - Depth 0.3 -Total Square Cm 0.30 -Date of Last Picture (Recall this 02/16/18 field) -Photo Taken Yes -Epithelialization None Present -Tunneling No -Undermining/Tunneling No -Circular Undermining No -Exudate Amt Small (1-33%) -Exudate Type Serosanguineous -Wound Margin Distinct, Outline Attached -Granulation Amt Large (67-100%) -Granulation Quality [place] -Slough/Fibrin No -Necrosis Amt None Present (0 %) -Texture (Mechelle-wound Skin Appearance) Scarring -Moisture (Mechelle-wound Skin Appearance Maceration ) -Color (Mechelle-wound Skin Appearance) Palor -Temperature (Mechelle-wound Skin No Abnormality Appearance) (Pt Warm) -Tenderness on Palpation (Mechelle-wound No Skin Appearance) -Ulcer Cleansing Rinsed/ Irrigated with Saline -Foul Odor after Cleansing No -Anesthetic Used 5% Lidocaine Gel 5-RIGHT INDEX FINGER -Combined with other wound No -Current Size (cm) - Length 0.3 -Current Size (cm) - Width 0.6 -Current Size (cm) - Depth 0.1 -Total Square Cm 0.18 -Photo Taken No -Epithelialization None Present -Tunneling No -Undermining/Tunneling No -Circular Undermining No -Exudate Amt Small (1-33%) -Exudate Type Serosanguineous -Wound Margin Distinct, Outline Attached -Granulation Amt None Present (0 %) -Slough/Fibrin Yes -Necrosis Amt Large (67-100%) -Necrotic Tissue Type Adherent Slough -Structure Exposed N/A -Texture (Mechelle-wound Skin Appearance) Callus Scarring -Moisture (Mechelle-wound Skin Appearance Maceration ) Dry/Scaly -Color (Mechelle-wound Skin Appearance) Assessed -Temperature (Mechelle-wound Skin No Abnormality Appearance) (Pt Warm) -Tenderness on Palpation (Mechelle-wound Yes Skin Appearance) -Ulcer Cleansing Rinsed/ Irrigated with Saline -Foul Odor after Cleansing No -Anesthetic Used 5% Lidocaine Gel [Edema Assessment] -Lower Limb Edema Present Yes -Right Calf (cm) 37.5 -Right Ankle (cm) 22.8 WC - Nurse 2 - General Ulcer CM Notes Start: 02/16/18 13:28 Freq: Status: Active Protocol: Activity Type Activity Date Activity User E-Sign Co-Sign Detail Recorded Client Recorded Date Recorded By Document 02/16/18 14:02 MW [id number] 02/16/18 14:17 MW 02/16/18 14:02 Wound Center Nurse 2 [Procedure/Treatment] #8- RT HEEL PLANTAR ASPECT -Time 14:03 -Correct Patient Yes -Correct Side, Site, Position Yes -Correct Procedure Yes -Procedure Performed Yes -Type of Procedure Debridement -Clinical Debridement Subcutaneous -Post Debridement Size (cm) - Length 0.8 -Post Debridement Size (cm) - Width 0.7 -Post Debridement Size (cm) - Depth 0.4 -Total Square Cm 0.56 -Wound/Ulcer Outcome Not Healed -Ulcer Cleansing Rinsed/ Irrigated with Saline -Foul Odor after Cleansing No -Bioengineered Tissue No -Bleeding Controlled with Pressure -Treatment Response Procedure Tolerated Well 5-RIGHT INDEX FINGER -Time 14:03 -Correct Patient Yes -Correct Side, Site, Position Yes -Correct Procedure Yes -Procedure Performed Yes -Type of Procedure Debridement -Clinical Debridement Subcutaneous -Post Debridement Size (cm) - Length 0.3 -Post Debridement Size (cm) - Width 0.6 -Post Debridement Size (cm) - Depth 0.1 -Total Square Cm 0.18 -Wound/Ulcer Outcome Not Healed -Ulcer Cleansing Rinsed/ Irrigated with Saline -Foul Odor after Cleansing No -Bioengineered Tissue No -Bleeding Controlled with Pressure -Treatment Response Procedure Tolerated Well [See Physician Procedure note for Specifics] Pain Scale: 0-10 Numeric [Pain] -Is Patient Pain Free? Yes Musculoskeletal: No Muscle Wasting Neurological: Cranial nerves II-XII grossly intact Psych/Mental Status: Normal Affect Debridement Note Post-Debridement Measurements/Treatment WC - Nurse 2 - General Ulcer CM Notes Start: 02/16/18 13:28 Freq: Status: Active Protocol: Activity Type Activity Date Activity User E-Sign Co-Sign Detail Recorded Client Recorded Date Recorded By Document 02/16/18 14:02 MW [id number] 02/16/18 14:17 MW 02/16/18 14:02 Wound Center Nurse 2 #8- RT HEEL PLANTAR ASPECT -Time 14:03 -Correct Patient Yes -Correct Side, Site, Position Yes -Correct Procedure Yes -Procedure Performed Yes -Type of Procedure Debridement -Clinical Debridement Subcutaneous -Post Debridement Size (cm) - Length 0.8 -Post Debridement Size (cm) - Width 0.7 -Post Debridement Size (cm) - Depth 0.4 -Total Square Cm 0.56 -Wound/Ulcer Outcome Not Healed -Ulcer Cleansing Rinsed/ Irrigated with Saline -Foul Odor after Cleansing No -Bioengineered Tissue No -Bleeding Controlled with Pressure -Treatment Response Procedure Tolerated Well 5-RIGHT INDEX FINGER -Time 14:03 -Correct Patient Yes -Correct Side, Site, Position Yes -Correct Procedure Yes -Procedure Performed Yes -Type of Procedure Debridement -Clinical Debridement Subcutaneous -Post Debridement Size (cm) - Length 0.3 -Post Debridement Size (cm) - Width 0.6 -Post Debridement Size (cm) - Depth 0.1 -Total Square Cm 0.18 -Wound/Ulcer Outcome Not Healed -Ulcer Cleansing Rinsed/ Irrigated with Saline -Foul Odor after Cleansing No -Bioengineered Tissue No -Bleeding Controlled with Pressure -Treatment Response Procedure Tolerated Well Pain Scale: 0-10 Numeric Is Patient Pain Free? Yes Wound debrided: Right Index finger Wound Grade/Stage: Stage II Type of Debridement: Excisional debridement Anesthesia Used: 4% Lidocaine Solution Depth: Down to and including healthy tissue, in the subcutaneous layer Percentage of wound debrided: 100 Instrument Used: 3mm curette Tissue Removed: Slough and devitalized tissue Severity: Fat Layer Exposed Amount of bleeding with debridement: Mild Bleeding Controlled with: Pressure Patient tolerated procedure well - Additional Wound Wound debrided: Right Foot ( Heel pad ) Wound Grade/Stage: Stage III Type of Debridement: Excisional debridement Anesthesia Used: 4% Lidocaine Solution Depth: Down to and including healthy tissue, in the subcutaneous layer Percentage of wound debrided: 100 Instrument Used: 5mm curette Tissue Removed: Slough and devitalized tissue Severity: Fat Layer Exposed Amount of bleeding with debridement: Mild Bleeding Controlled with: Pressure Patient tolerated procedure: Patient tolerated procedure well Assessment/Plan Clinical Impression(s) from Imaging Studies Ankle X-Ray 02/16/18 14:55 IMPRESSION: No fracture or dislocation. No definite radiographic findings of osteomyelitis. 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 No fracture or dislocation. No radiodense foreign body. No definite radiographic findings of osteomyelitis. Electronically Signed: Mazin Torres, at 16:37 EDT Tel , Service support , [facility] X-ray 02/16/18 15:00 IMPRESSION: No fracture or dislocation. No definite radiographic findings of osteomyelitis. Electronically Signed: Mazin Torres, at 16:24 EDT Tel , Service support , Active Problems (Last Reviewed 11/01/17 @ 16:03 by Wilmer Cartwright) Skin ulcer of finger with fat layer exposed (Chronic) Right Index Finger Assessment: Right Middle and Ring finger ulcers with Fat layer exposed - Healed. Right Index finger ulcer possible due to vasoconstriction/raynaud's. Right Foot traumatic wound/ulcer with fat layer exposed Plan: Mr Espinoza presents with a new right foot ulcer after a penetrating nail injury. He has applied hydrogel to the wound since episode. Last Tetanus shot was several years ago '. Right middle and ring fingers stay healed. He continues to moisturize as instructed. Right index finger ulcer improving. He is currently on nifedipine for vasodilatation. Debridement of both ulcers done as documented above. Procedure was well-tolerated. Continue Tegan with Adaptic over top and loose gauze dressing to right index finger. Tegan with adpatic over top to right foot ulcer. Change daily. Xray and cultures ordered. Advised to get a Tetanus shot. Increase protein intake encouraged. 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 This note was generated with [employer] dictation software. It may contain incorrect words, spelling, and punctuation that were not noted in checking the note before signing.
[2018-02-23 09:05] VITALS: BP 113/62; PULSE 95; RESP 16; TEMP 37
--- NOTE | 2018-02-23 10:16 | PCM.WC.PN ---
(1) Ulcer of right foot with fat layer exposed Status: Resolved Current Visit: Yes Code(s): L97.512 - Non-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ulcer of other part of right foot with fat layer exposed (2) Skin ulcer of finger with fat layer exposed Status: Chronic Current Visit: Yes Code(s): L98.492 - Non-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ulcer of skin of other sites with fat layer exposed Comment: Right Index Finger (3) Diabetes mellitus type 2 with complications Status: Chronic Current Visit: No Code(s): E11.8 - Type 2 diabetes mellitus with unspecified complications (4) Neuropathy Status: Chronic Current Visit: No Code(s): G62.9 - Polyneuropathy, unspecified Comment: Most likely severe diabetic neuropathy [facility] (5) Type 2 diabetes mellitus with diabetic polyneuropathy Status: Chronic Current Visit: No Code(s): E11.42 - Type 2 diabetes mellitus with diabetic polyneuropathy Type of Wound Date of Service: 02/23/18 Chief Complaint: Right index finger ulcer and Right Foot Ulcer History of Wound: Mr. Espinoza is a 57yo with PMH of Diabetes currently seeing Dr Aparicio for lower extremity ulcers. I was asked to see him for chronic ulcers of his right index, middle and ring fingers. He is a [place] and has chronic upper extremity callus and has had ulcers which have typically healed well however, current episodes of his right middle and ring fingers have persisted despite management with neosporin application. There is no significant callous of his right index finger however, he noted the ulcer sometime in September after he had been in 0 degree weather with exposed hands for a long time. He reports pain in that digit but denies any discharge from the site. He has also been applying Neosporin without any significant improvement. Progress of Wound: Stable. No new complainst at this time. Currently on clindamycin per sensitivity. - Physical Exam Vital Signs Temp Pulse Resp BP 98.6 F 95 16 113/62 02/23/18 09:05 02/23/18 09:05 02/23/18 09:05 02/23/18 09:05 General: Alert, Oriented x3, Cooperative, No apparent distress HEENT: Atraumatic, Normocephalic Oral: Moist Mucosa Neck: Supple Lungs: Normal air movement Cardiovascular: Regular rate Extremities: No cyanosis, Edema Skin: Ulcer/ Wound Wound Measurements and Assessment WC - Nurse 1 - General Ulcer Measurement Start: 02/16/18 13:28 Freq: Status: Active Protocol: Activity Type Activity Date Activity User E-Sign Co-Sign Detail Recorded Client Recorded Date Recorded By Document 02/23/18 09:05 [facility] [id number] 02/23/18 09:08 [facility] 02/23/18 09:05 Wound Center Nurse 1 [Ulcer Assessment] #8- RT HEEL PLANTAR ASPECT -Combined with other wound No -Current Size (cm) - Length 0.6 -Current Size (cm) - Width 0.4 -Current Size (cm) - Depth 0.3 -Total Square Cm 0.24 -Photo Taken No -Epithelialization None Present -Tunneling No -Undermining/Tunneling No -Circular Undermining No -Exudate Amt Small (1-33%) -Exudate Type Serous -Wound Margin Distinct, Outline Attached -Granulation Amt Small (1-33%) -Granulation Quality [place] -Slough/Fibrin Yes -Necrosis Amt Large (67-100%) -Necrotic Tissue Type Adherent Slough -Texture (Mechelle-wound Skin Appearance) Callus Scarring -Moisture (Mechelle-wound Skin Appearance Maceration ) -Color (Mechelle-wound Skin Appearance) Assessed Palor -Temperature (Mechelle-wound Skin No Abnormality Appearance) (Pt Warm) -Tenderness on Palpation (Mechelle-wound No Skin Appearance) -Ulcer Cleansing Rinsed/ Irrigated with Saline -Foul Odor after Cleansing No -Anesthetic Used 5% Lidocaine Gel 5-RIGHT INDEX FINGER -Combined with other wound No -Current Size (cm) - Length 0.3 -Current Size (cm) - Width 0.6 -Current Size (cm) - Depth 0.2 -Total Square Cm 0.18 -Photo Taken No -Epithelialization None Present -Tunneling No -Undermining/Tunneling No -Circular Undermining No -Exudate Amt Small (1-33%) -Exudate Type Serous -Wound Margin Distinct, Outline Attached -Granulation Amt None Present (0 %) -Slough/Fibrin Yes -Necrosis Amt Large (67-100%) -Necrotic Tissue Type Adherent Slough -Structure Exposed N/A -Texture (Mechelle-wound Skin Appearance) Scarring -Moisture (Mechelle-wound Skin Appearance Maceration ) Dry/Scaly -Color (Mechelle-wound Skin Appearance) Palor -Temperature (Mechelle-wound Skin No Abnormality Appearance) (Pt Warm) -Tenderness on Palpation (Mechelle-wound Yes Skin Appearance) -Ulcer Cleansing Rinsed/ Irrigated with Saline -Foul Odor after Cleansing No -Anesthetic Used 5% Lidocaine Gel WC - Nurse 2 - General Ulcer CM Notes Start: 02/16/18 13:28 Freq: Status: Active Protocol: Activity Type Activity Date Activity User E-Sign Co-Sign Detail Recorded Client Recorded Date Recorded By Document 02/23/18 10:02 DV [id number] 02/23/18 10:09 DV 02/23/18 10:02 Wound Center Nurse 2 [Procedure/Treatment] #8- RT HEEL PLANTAR ASPECT -Time 10:04 -Correct Patient Yes -Correct Side, Site, Position Yes -Correct Procedure Yes -Procedure Performed Yes -Type of Procedure Debridement -Clinical Debridement Subcutaneous -Post Debridement Size (cm) - Length 0.7 -Post Debridement Size (cm) - Width 0.5 -Post Debridement Size (cm) - Depth 0.3 -Total Square Cm 0.35 -Wound/Ulcer Outcome Not Healed -Ulcer Cleansing Rinsed/ Irrigated with Saline -Foul Odor after Cleansing No -Bioengineered Tissue No -Bleeding Controlled with Pressure -Treatment Response Procedure Tolerated Well 5-RIGHT INDEX FINGER -Time 10:07 -Correct Patient Yes -Correct Side, Site, Position Yes -Correct Procedure Yes -Procedure Performed Yes -Type of Procedure Debridement -Clinical Debridement Subcutaneous -Post Debridement Size (cm) - Length 0.4 -Post Debridement Size (cm) - Width 0.5 -Post Debridement Size (cm) - Depth 0.1 -Total Square Cm 0.20 -Wound/Ulcer Outcome Not Healed -Ulcer Cleansing Rinsed/ Irrigated with Saline -Foul Odor after Cleansing No -Bioengineered Tissue No -Bleeding Controlled with Pressure -Treatment Response Procedure Tolerated Well [See Physician Procedure note for Specifics] Pain Scale: 0-10 Numeric [Pain] -Is Patient Pain Free? Yes Musculoskeletal: No Muscle Wasting Neurological: Cranial nerves II-XII grossly intact Psych/Mental Status: Normal Affect Debridement Note Post-Debridement Measurements/Treatment FLORIN - Nurse 2 - General Ulcer CM Notes Start: 02/16/18 13:28 Freq: Status: Active Protocol: Activity Type Activity Date Activity User E-Sign Co-Sign Detail Recorded Client Recorded Date Recorded By Document 02/16/18 14:02 MW [id number] 02/16/18 14:17 MW Document 02/23/18 10:02 DV [id number] 02/23/18 10:09 DV 02/16/18 02/23/18 14:02 10:02 Wound Center Nurse 2 #8- RT HEEL PLANTAR ASPECT -Time 14:03 10:04 -Correct Patient Yes Yes -Correct Side, Site, Position Yes Yes -Correct Procedure Yes Yes -Procedure Performed Yes Yes -Type of Procedure Debridement Debridement -Clinical Debridement Subcutaneous Subcutaneous -Post Debridement Size (cm) - Length 0.8 0.7 -Post Debridement Size (cm) - Width 0.7 0.5 -Post Debridement Size (cm) - Depth 0.4 0.3 -Total Square Cm 0.56 0.35 -Wound/Ulcer Outcome Not Healed Not Healed -Ulcer Cleansing Rinsed/ Rinsed/ Irrigated with Irrigated with Saline Saline -Foul Odor after Cleansing No No -Bioengineered Tissue No No -Bleeding Controlled with Pressure Pressure -Treatment Response Procedure Procedure Tolerated Well Tolerated Well 5-RIGHT INDEX FINGER -Time 14:03 10:07 -Correct Patient Yes Yes -Correct Side, Site, Position Yes Yes -Correct Procedure Yes Yes -Procedure Performed Yes Yes -Type of Procedure Debridement Debridement -Clinical Debridement Subcutaneous Subcutaneous -Post Debridement Size (cm) - Length 0.3 0.4 -Post Debridement Size (cm) - Width 0.6 0.5 -Post Debridement Size (cm) - Depth 0.1 0.1 -Total Square Cm 0.18 0.20 -Wound/Ulcer Outcome Not Healed Not Healed -Ulcer Cleansing Rinsed/ Rinsed/ Irrigated with Irrigated with Saline Saline -Foul Odor after Cleansing No No -Bioengineered Tissue No No -Bleeding Controlled with Pressure Pressure -Treatment Response Procedure Procedure Tolerated Well Tolerated Well Pain Scale: 0-10 Numeric Is Patient Pain Free? Yes Yes Wound debrided: Right index finger Wound Grade/Stage: Stage II Type of Debridement: Excisional debridement Anesthesia Used: 4% Lidocaine Solution Depth: Down to and including healthy tissue, in the subcutaneous layer Percentage of wound debrided: 100 Instrument Used: 3mm curette Tissue Removed: Slough and devitalized tissue Severity: Fat Layer Exposed Amount of bleeding with debridement: Mild Bleeding Controlled with: Pressure Patient tolerated procedure well - Additional Wound Wound debrided: Right heel Wound Grade/Stage: Stage II Type of Debridement: Excisional debridement Anesthesia Used: 4% Lidocaine Solution Depth: Down to and including healthy tissue, in the subcutaneous layer Percentage of wound debrided: 100 Instrument Used: 5mm curette Tissue Removed: Slough and devitalized tissue Severity: Fat Layer Exposed Amount of bleeding with debridement: Mild Bleeding Controlled with: Pressure Patient tolerated procedure: Patient tolerated procedure well Assessment/Plan Clinical Impression(s) from Imaging Studies Ankle X-Ray 02/16/18 14:55 IMPRESSION: No fracture or dislocation. No definite radiographic findings of osteomyelitis. 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 No fracture or dislocation. No radiodense foreign body. No definite radiographic findings of osteomyelitis. Electronically Signed: Mazin Torres, at 16:37 EDT Tel , Service support , [facility] X-ray 02/16/18 15:00 IMPRESSION: No fracture or dislocation. No definite radiographic findings of osteomyelitis. Electronically Signed: Mazin Torres, at 16:24 EDT Tel , Service support , Active Problems (Last Reviewed 11/01/17 @ 16:03 by Wilmer Cartwright) Skin ulcer of finger with fat layer exposed (Chronic) Right Index Finger Assessment: Right Middle and Ring finger ulcers with Fat layer exposed - Healed. Right Index finger ulcer possible due to vasoconstriction/raynaud's. Right Foot traumatic wound/ulcer with fat layer exposed Plan: Right index finger has stayed stable. 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 No obvious signs of infection at this time. Right heel ulcer also imoroving. Xrays with no signs of infection. Debridement of both ulcers done as documented above. Procedure was well-tolerated. Continue Tegan with Adaptic over top and loose gauze dressing to both ulcers. Continue Clindamycin. Tetanus shot gotten as recommended. Increase protein intake encouraged. 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 This note was generated with [employer] dictation software. It may contain incorrect words, spelling, and punctuation that were not noted in checking the note before signing.
--- NOTE | 2018-02-23 10:22 | PN.PCM_ITS ---
(1) Ulcer of right foot with fat layer exposed Status: Resolved Current Visit: Yes Code(s): L97.512 - Non-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ulcer of other part of right foot with fat layer exposed (2) Skin ulcer of finger with fat layer exposed Status: Chronic Current Visit: Yes Code(s): L98.492 - Non-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ulcer of skin of other sites with fat layer exposed Comment: Right Index Finger (3) Diabetes mellitus type 2 with complications Status: Chronic Current Visit: No Code(s): E11.8 - Type 2 diabetes mellitus with unspecified complications (4) Neuropathy Status: Chronic Current Visit: No Code(s): G62.9 - Polyneuropathy, unspecified Comment: Most likely severe diabetic neuropathy [facility] (5) Type 2 diabetes mellitus with diabetic polyneuropathy Status: Chronic Current Visit: No Code(s): E11.42 - Type 2 diabetes mellitus with diabetic polyneuropathy Type of Wound Date of Service: 02/23/18 Chief Complaint: Right index finger ulcer and Right Foot Ulcer History of Wound: Mr. Espinoza is a 57yo with PMH of Diabetes currently seeing Dr Aparicio for lower extremity ulcers. I was asked to see him for chronic ulcers of his right index, middle and ring fingers. He is a [place] and has chronic upper extremity callus and has had ulcers which have typically healed well however, current episodes of his right middle and ring fingers have persisted despite management with neosporin application. There is no significant callous of his right index finger however, he noted the ulcer sometime in September after he had been in 0 degree weather with exposed hands for a long time. He reports pain in that digit but denies any discharge from the site. He has also been applying Neosporin without any significant improvement. Progress of Wound: Stable. No new complainst at this time. Currently on clindamycin per sensitivity. - Physical Exam Vital Signs Temp Pulse Resp BP 98.6 F 95 16 113/62 02/23/18 09:05 02/23/18 09:05 02/23/18 09:05 02/23/18 09:05 General: Alert, Oriented x3, Cooperative, No apparent distress HEENT: Atraumatic, Normocephalic Oral: Moist Mucosa Neck: Supple Lungs: Normal air movement Cardiovascular: Regular rate Extremities: No cyanosis, Edema Skin: Ulcer/ Wound Wound Measurements and Assessment WC - Nurse 1 - General Ulcer Measurement Start: 02/16/18 13:28 Freq: Status: Active Protocol: Activity Type Activity Date Activity User E-Sign Co-Sign Detail Recorded Client Recorded Date Recorded By Document 02/23/18 09:05 [facility] [id number] 02/23/18 09:08 [facility] 02/23/18 09:05 Wound Center Nurse 1 [Ulcer Assessment] #8- RT HEEL PLANTAR ASPECT -Combined with other wound No -Current Size (cm) - Length 0.6 -Current Size (cm) - Width 0.4 -Current Size (cm) - Depth 0.3 -Total Square Cm 0.24 -Photo Taken No -Epithelialization None Present -Tunneling No -Undermining/Tunneling No -Circular Undermining No -Exudate Amt Small (1-33%) -Exudate Type Serous -Wound Margin Distinct, Outline Attached -Granulation Amt Small (1-33%) -Granulation Quality [place] -Slough/Fibrin Yes -Necrosis Amt Large (67-100%) -Necrotic Tissue Type Adherent Slough -Texture (Mechelle-wound Skin Appearance) Callus Scarring -Moisture (Mechelle-wound Skin Appearance Maceration ) -Color (Mechelle-wound Skin Appearance) Assessed [place] -Temperature (Mechelle-wound Skin No Abnormality Appearance) (Pt Warm) -Tenderness on Palpation (Mechelle-wound No Skin Appearance) -Ulcer Cleansing Rinsed/ Irrigated with Saline -Foul Odor after Cleansing No -Anesthetic Used 5% Lidocaine Gel 5-RIGHT INDEX FINGER -Combined with other wound No -Current Size (cm) - Length 0.3 -Current Size (cm) - Width 0.6 -Current Size (cm) - Depth 0.2 -Total Square Cm 0.18 -Photo Taken No -Epithelialization None Present -Tunneling No -Undermining/Tunneling No -Circular Undermining No -Exudate Amt Small (1-33%) -Exudate Type Serous -Wound Margin Distinct, Outline Attached -Granulation Amt None Present (0 %) -Slough/Fibrin Yes -Necrosis Amt Large (67-100%) -Necrotic Tissue Type Adherent Slough -Structure Exposed N/A -Texture (Mechelle-wound Skin Appearance) Scarring -Moisture (Mechelle-wound Skin Appearance Maceration ) Dry/Scaly -Color (Mechelle-wound Skin Appearance) Palor -Temperature (Mechelle-wound Skin No Abnormality Appearance) (Pt Warm) -Tenderness on Palpation (Mechelle-wound Yes Skin Appearance) -Ulcer Cleansing Rinsed/ Irrigated with Saline -Foul Odor after Cleansing No -Anesthetic Used 5% Lidocaine Gel WC - Nurse 2 - General Ulcer CM Notes Start: 02/16/18 13:28 Freq: Status: Active Protocol: Activity Type Activity Date Activity User E-Sign Co-Sign Detail Recorded Client Recorded Date Recorded By Document 02/23/18 10:02 DV [id number] 02/23/18 10:09 DV 02/23/18 10:02 Wound Center Nurse 2 [Procedure/Treatment] #8- RT HEEL PLANTAR ASPECT -Time 10:04 -Correct Patient Yes -Correct Side, Site, Position Yes -Correct Procedure Yes -Procedure Performed Yes -Type of Procedure Debridement -Clinical Debridement Subcutaneous -Post Debridement Size (cm) - Length 0.7 -Post Debridement Size (cm) - Width 0.5 -Post Debridement Size (cm) - Depth 0.3 -Total Square Cm 0.35 -Wound/Ulcer Outcome Not Healed -Ulcer Cleansing Rinsed/ Irrigated with Saline -Foul Odor after Cleansing No -Bioengineered Tissue No -Bleeding Controlled with Pressure -Treatment Response Procedure Tolerated Well 5-RIGHT INDEX FINGER -Time 10:07 -Correct Patient Yes -Correct Side, Site, Position Yes -Correct Procedure Yes -Procedure Performed Yes -Type of Procedure Debridement -Clinical Debridement Subcutaneous -Post Debridement Size (cm) - Length 0.4 -Post Debridement Size (cm) - Width 0.5 -Post Debridement Size (cm) - Depth 0.1 -Total Square Cm 0.20 -Wound/Ulcer Outcome Not Healed -Ulcer Cleansing Rinsed/ Irrigated with Saline -Foul Odor after Cleansing No -Bioengineered Tissue No -Bleeding Controlled with Pressure -Treatment Response Procedure Tolerated Well [See Physician Procedure note for Specifics] Pain Scale: 0-10 Numeric [Pain] -Is Patient Pain Free? Yes Musculoskeletal: No Muscle Wasting Neurological: Cranial nerves II-XII grossly intact Psych/Mental Status: Normal Affect Debridement Note Post-Debridement Measurements/Treatment FLORIN - Nurse 2 - General Ulcer CM Notes Start: 02/16/18 13:28 Freq: Status: Active Protocol: Activity Type Activity Date Activity User E-Sign Co-Sign Detail Recorded Client Recorded Date Recorded By Document 02/16/18 14:02 MW [id number] 02/16/18 14:17 MW Document 02/23/18 10:02 DV [id number] 02/23/18 10:09 DV 02/16/18 02/23/18 14:02 10:02 Wound Center Nurse 2 #8- RT HEEL PLANTAR ASPECT -Time 14:03 10:04 -Correct Patient Yes Yes -Correct Side, Site, Position Yes Yes -Correct Procedure Yes Yes -Procedure Performed Yes Yes -Type of Procedure Debridement Debridement -Clinical Debridement Subcutaneous Subcutaneous -Post Debridement Size (cm) - Length 0.8 0.7 -Post Debridement Size (cm) - Width 0.7 0.5 -Post Debridement Size (cm) - Depth 0.4 0.3 -Total Square Cm 0.56 0.35 -Wound/Ulcer Outcome Not Healed Not Healed -Ulcer Cleansing Rinsed/ Rinsed/ Irrigated with Irrigated with Saline Saline -Foul Odor after Cleansing No No -Bioengineered Tissue No No -Bleeding Controlled with Pressure Pressure -Treatment Response Procedure Procedure Tolerated Well Tolerated Well 5-RIGHT INDEX FINGER -Time 14:03 10:07 -Correct Patient Yes Yes -Correct Side, Site, Position Yes Yes -Correct Procedure Yes Yes -Procedure Performed Yes Yes -Type of Procedure Debridement Debridement -Clinical Debridement Subcutaneous Subcutaneous -Post Debridement Size (cm) - Length 0.3 0.4 -Post Debridement Size (cm) - Width 0.6 0.5 -Post Debridement Size (cm) - Depth 0.1 0.1 -Total Square Cm 0.18 0.20 -Wound/Ulcer Outcome Not Healed Not Healed -Ulcer Cleansing Rinsed/ Rinsed/ Irrigated with Irrigated with Saline Saline -Foul Odor after Cleansing No No -Bioengineered Tissue No No -Bleeding Controlled with Pressure Pressure -Treatment Response Procedure Procedure Tolerated Well Tolerated Well Pain Scale: 0-10 Numeric Is Patient Pain Free? Yes Yes Wound debrided: Right index finger Wound Grade/Stage: Stage II Type of Debridement: Excisional debridement Anesthesia Used: 4% Lidocaine Solution Depth: Down to and including healthy tissue, in the subcutaneous layer Percentage of wound debrided: 100 Instrument Used: 3mm curette Tissue Removed: Slough and devitalized tissue Severity: Fat Layer Exposed Amount of bleeding with debridement: Mild Bleeding Controlled with: Pressure Patient tolerated procedure well - Additional Wound Wound debrided: Right heel Wound Grade/Stage: Stage II Type of Debridement: Excisional debridement Anesthesia Used: 4% Lidocaine Solution Depth: Down to and including healthy tissue, in the subcutaneous layer Percentage of wound debrided: 100 Instrument Used: 5mm curette Tissue Removed: Slough and devitalized tissue Severity: Fat Layer Exposed Amount of bleeding with debridement: Mild Bleeding Controlled with: Pressure Patient tolerated procedure: Patient tolerated procedure well Assessment/Plan Clinical Impression(s) from Imaging Studies Ankle X-Ray 02/16/18 14:55 IMPRESSION: No fracture or dislocation. No definite radiographic findings of osteomyelitis. 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 No fracture or dislocation. No radiodense foreign body. No definite radiographic findings of osteomyelitis. Electronically Signed: Mazin Torres, at 16:37 EDT Tel , Service support , [facility] [place] X-ray 02/16/18 15:00 IMPRESSION: No fracture or dislocation. No definite radiographic findings of osteomyelitis. Electronically Signed: Mazin Torres, at 16:24 EDT Tel , Service support , Active Problems (Last Reviewed 11/01/17 @ 16:03 by Wilmer Cartwright) Skin ulcer of finger with fat layer exposed (Chronic) Right Index Finger Assessment: Right Middle and Ring finger ulcers with Fat layer exposed - Healed. Right Index finger ulcer possible due to vasoconstriction/raynaud's. Right Foot traumatic wound/ulcer with fat layer exposed Plan: Right index finger has stayed stable. 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 No obvious signs of infection at this time. Right heel ulcer also imoroving. Xrays with no signs of infection. Debridement of both ulcers done as documented above. Procedure was well-tolerated. Continue Tegan with Adaptic over top and loose gauze dressing to both ulcers. Continue Clindamycin. Tetanus shot gotten as recommended. Increase protein intake encouraged. 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 This note was generated with [employer] dictation software. It may contain incorrect words, spelling, and punctuation that were not noted in checking the note before signing.
[2018-03-02 10:03] VITALS: BP 129/65; PULSE 90; RESP 18; TEMP 36.8
--- NOTE | 2018-03-02 11:00 | PCM.WC.PN ---
(1) Ulcer of right foot with fat layer exposed Status: Resolved Current Visit: Yes Code(s): L97.512 - Non-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ulcer of other part of right foot with fat layer exposed (2) Skin ulcer of finger with fat layer exposed Status: Chronic Current Visit: Yes Code(s): L98.492 - Non-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ulcer of skin of other sites with fat layer exposed Comment: Right Index Finger (3) Diabetes mellitus type 2 with complications Status: Chronic Current Visit: No Code(s): E11.8 - Type 2 diabetes mellitus with unspecified complications (4) Neuropathy Status: Chronic Current Visit: No Code(s): G62.9 - Polyneuropathy, unspecified Comment: Most likely severe diabetic neuropathy [facility] (5) Type 2 diabetes mellitus with diabetic polyneuropathy Status: Chronic Current Visit: No Code(s): E11.42 - Type 2 diabetes mellitus with diabetic polyneuropathy Type of Wound Date of Service: 03/02/18 Chief Complaint: Right index finger ulcer and Right Foot Ulcer History of Wound: Mr. Espinoza is a 57yo with PMH of Diabetes currently seeing Dr Aparicio for lower extremity ulcers. I was asked to see him for chronic ulcers of his right index, middle and ring fingers. He is a [place] and has chronic upper extremity callus and has had ulcers which have typically healed well however, current episodes of his right middle and ring fingers have persisted despite management with neosporin application. There is no significant callous of his right index finger however, he noted the ulcer sometime in September after he had been in 0 degree weather with exposed hands for a long time. He reports pain in that digit but denies any discharge from the site. He has also been applying Neosporin without any significant improvement. Progress of Wound: Improving. - Physical Exam Vital Signs Temp Pulse Resp BP 98.2 F 90 18 129/65 H 03/02/18 10:03 03/02/18 10:03 03/02/18 10:03 03/02/18 10:03 General: Alert, Oriented x3, Cooperative, No apparent distress HEENT: Atraumatic, Normocephalic Oral: Moist Mucosa Neck: Supple Lungs: Normal air movement Cardiovascular: Regular rate Abdomen: Non Tender Extremities: No cyanosis, Edema Wound Measurements and Assessment WC - Nurse 1 - General Ulcer Measurement Start: 02/16/18 13:28 Freq: Status: Active Protocol: Activity Type Activity Date Activity User E-Sign Co-Sign Detail Recorded Client Recorded Date Recorded By Document 03/02/18 10:03 RB [id number] 03/02/18 10:14 AMINTA 03/02/18 10:03 Wound Center Nurse 1 [Ulcer Assessment] #8- RT HEEL PLANTAR ASPECT -Combined with other wound No -Current Size (cm) - Length 1.2 -Current Size (cm) - Width 1.1 -Current Size (cm) - Depth 0.2 -Total Square Cm 1.32 -Epithelialization Small 1-33% -Tunneling No -Undermining/Tunneling No -Circular Undermining No -Classification - Thickness Full Thickness without Exposed Support Structure -Exudate Amt Small (1-33%) -Exudate Type Serosanguineous -Wound Margin Thickened -Granulation Amt Medium (34-66%) -Granulation Quality [place] -Slough/Fibrin Yes -Necrosis Amt Medium (34-66%) -Necrotic Tissue Type Adherent Slough -Structure Exposed N/A -Texture (Mechelle-wound Skin Appearance) Assessed Callus -Moisture (Mechelle-wound Skin Appearance Assessed ) -Color (Mechelle-wound Skin Appearance) Assessed -Temperature (Mechelle-wound Skin No Abnormality Appearance) (Pt Warm) -Tenderness on Palpation (Mechelle-wound No Skin Appearance) -Ulcer Cleansing Rinsed/ Irrigated with Saline -Foul Odor after Cleansing No -Anesthetic Used 5% Lidocaine Gel 5-RIGHT INDEX FINGER -Combined with other wound No -Current Size (cm) - Length 0.4 -Current Size (cm) - Width 0.6 -Current Size (cm) - Depth 0.1 -Total Square Cm 0.24 -Photo Taken No -Epithelialization Small 1-33% -Tunneling No -Undermining/Tunneling No -Circular Undermining No -Classification - Thickness Full Thickness without Exposed Support Structure -Exudate Amt Small (1-33%) -Exudate Type Serosanguineous -Wound Margin Distinct, Outline Attached -Granulation Amt Small (1-33%) -Granulation Quality [place] -Slough/Fibrin Yes -Necrosis Amt Large (67-100%) -Necrotic Tissue Type Adherent Slough -Structure Exposed N/A -Texture (Mechelle-wound Skin Appearance) Callus -Moisture (Mechelle-wound Skin Appearance Maceration ) -Color (Mechelle-wound Skin Appearance) Assessed -Temperature (Mechelle-wound Skin No Abnormality Appearance) (Pt Warm) -Tenderness on Palpation (Mechelle-wound No Skin Appearance) -Ulcer Cleansing Rinsed/ Irrigated with Saline -Foul Odor after Cleansing No -Anesthetic Used 5% Lidocaine Gel [Edema Assessment] -Lower Limb Edema Present Yes -Right Calf (cm) 37.5 -Right Ankle (cm) 23.5 WC - Nurse 2 - General Ulcer CM Notes Start: 02/16/18 13:28 Freq: Status: Active Protocol: Activity Type Activity Date Activity User E-Sign Co-Sign Detail Recorded Client Recorded Date Recorded By Document 03/02/18 10:48 DV [id number] 03/02/18 10:53 DV 03/02/18 10:48 Wound Center Nurse 2 [Procedure/Treatment] #8- RT HEEL PLANTAR ASPECT -Time 10:49 -Correct Patient Yes -Correct Side, Site, Position Yes -Correct Procedure Yes -Procedure Performed Yes -Type of Procedure Debridement -Clinical Debridement Subcutaneous -Post Debridement Size (cm) - Length 0.5 -Post Debridement Size (cm) - Width 0.4 -Post Debridement Size (cm) - Depth 0.2 -Total Square Cm 0.20 -Wound/Ulcer Outcome Not Healed -Ulcer Cleansing Rinsed/ Irrigated with Saline -Foul Odor after Cleansing No -Bioengineered Tissue No -Bleeding Controlled with Pressure Silver Nitrate -Treatment Response Procedure Tolerated Well 5-RIGHT INDEX FINGER -Time 10:49 -Correct Patient Yes -Correct Side, Site, Position Yes -Correct Procedure Yes -Procedure Performed Yes -Type of Procedure Debridement -Clinical Debridement Subcutaneous -Post Debridement Size (cm) - Length 0.3 -Post Debridement Size (cm) - Width 0.6 -Post Debridement Size (cm) - Depth 0.1 -Total Square Cm 0.18 -Wound/Ulcer Outcome Not Healed -Ulcer Cleansing Rinsed/ Irrigated with Saline -Foul Odor after Cleansing No -Bioengineered Tissue No -Bleeding Controlled with Pressure -Treatment Response Procedure Tolerated Well [See Physician Procedure note for Specifics] Pain Scale: 0-10 Numeric [Pain] -Is Patient Pain Free? Yes Musculoskeletal: No Muscle Wasting Neurological: Cranial nerves II-XII grossly intact Psych/Mental Status: Normal Affect Debridement Note Post-Debridement Measurements/Treatment WC - Nurse 2 - General Ulcer CM Notes Start: 02/16/18 13:28 Freq: Status: Active Protocol: Activity Type Activity Date Activity User E-Sign Co-Sign Detail Recorded Client Recorded Date Recorded By Document 02/16/18 14:02 MW [id number] 02/16/18 14:17 MW Document 02/23/18 10:02 DV [id number] 02/23/18 10:09 DV Document 03/02/18 10:48 DV [id number] 03/02/18 10:53 DV 02/16/18 02/23/18 03/02/18 14:02 10:02 10:48 Wound Center Nurse 2 #8- RT HEEL PLANTAR ASPECT -Time 14:03 10:04 10:49 -Correct Patient Yes Yes Yes -Correct Side, Site, Position Yes Yes Yes -Correct Procedure Yes Yes Yes -Procedure Performed Yes Yes Yes -Type of Procedure Debridement Debridement Debridement -Clinical Debridement Subcutaneous Subcutaneous Subcutaneous -Post Debridement Size (cm) - Length 0.8 0.7 0.5 -Post Debridement Size (cm) - Width 0.7 0.5 0.4 -Post Debridement Size (cm) - Depth 0.4 0.3 0.2 -Total Square Cm 0.56 0.35 0.20 -Wound/Ulcer Outcome Not Healed Not Healed Not Healed -Ulcer Cleansing Rinsed/ Rinsed/ Rinsed/ Irrigated with Irrigated with Irrigated with Saline Saline Saline -Foul Odor after Cleansing No No No -Bioengineered Tissue No No No -Bleeding Controlled with Pressure Pressure Pressure Silver Nitrate -Treatment Response Procedure Procedure Procedure Tolerated Well Tolerated Well Tolerated Well 5-RIGHT INDEX FINGER -Time 14:03 10:07 10:49 -Correct Patient Yes Yes Yes -Correct Side, Site, Position Yes Yes Yes -Correct Procedure Yes Yes Yes -Procedure Performed Yes Yes Yes -Type of Procedure Debridement Debridement Debridement -Clinical Debridement Subcutaneous Subcutaneous Subcutaneous -Post Debridement Size (cm) - Length 0.3 0.4 0.3 -Post Debridement Size (cm) - Width 0.6 0.5 0.6 -Post Debridement Size (cm) - Depth 0.1 0.1 0.1 -Total Square Cm 0.18 0.20 0.18 -Wound/Ulcer Outcome Not Healed Not Healed Not Healed -Ulcer Cleansing Rinsed/ Rinsed/ Rinsed/ Irrigated with Irrigated with Irrigated with Saline Saline Saline -Foul Odor after Cleansing No No No -Bioengineered Tissue No No No -Bleeding Controlled with Pressure Pressure Pressure -Treatment Response Procedure Procedure Procedure Tolerated Well Tolerated Well Tolerated Well Pain Scale: 0-10 Numeric Is Patient Pain Free? Yes Yes Yes Wound debrided: Right index finger Wound Grade/Stage: Stage II Type of Debridement: Excisional debridement Anesthesia Used: 4% Lidocaine Solution Depth: Down to and including healthy tissue, in the subcutaneous layer Percentage of wound debrided: 100 Instrument Used: 3mm curette Tissue Removed: Slough and devitalized tissue Severity: Fat Layer Exposed Amount of bleeding with debridement: Mild Bleeding Controlled with: Pressure Patient tolerated procedure well - Additional Wound Wound debrided: Right heel Wound Grade/Stage: Stage II Type of Debridement: Excisional debridement Anesthesia Used: 4% Lidocaine Solution Depth: Down to and including healthy tissue, in the subcutaneous layer Percentage of wound debrided: 100 Instrument Used: 5mm curette, #15 blade Tissue Removed: Callus, slough and devitalized tissue Severity: Fat Layer Exposed Amount of bleeding with debridement: Mild Bleeding Controlled with: Pressure Patient tolerated procedure: Patient tolerated procedure well Assessment/Plan Clinical Impression(s) from Imaging Studies Ankle X-Ray 02/16/18 14:55 IMPRESSION: No fracture or dislocation. No definite radiographic findings of osteomyelitis. 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 No fracture or dislocation. No radiodense foreign body. No definite radiographic findings of osteomyelitis. Electronically Signed: Mazin Torres, at 16:37 EDT Tel , Service support , [facility] X-ray 02/16/18 15:00 IMPRESSION: No fracture or dislocation. No definite radiographic findings of osteomyelitis. Electronically Signed: Mazin Torres, at 16:24 EDT Tel , Service support , Active Problems (Last Reviewed 11/01/17 @ 16:03 by Wilmer Cartwright) Skin ulcer of finger with fat layer exposed (Chronic) Right Index Finger Assessment: Right Middle and Ring finger ulcers with Fat layer exposed - Healed. Right Index finger ulcer possible due to vasoconstriction/raynaud's. Right Foot traumatic wound/ulcer with fat layer exposed Plan: Right heel and index finger with some progress however, more from the right heel. Debridement of both ulcers done as documented above. Procedure was well-tolerated. Continue Tegan with Adaptic over top and loose gauze dressing to both ulcers. Continue Clindamycin. Tetanus shot gotten as recommended. Increase protein intake encouraged. 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 This note was generated with [employer] dictation software. It may contain incorrect words, spelling, and punctuation that were not noted in checking the note before signing.
--- NOTE | 2018-03-02 11:03 | PN.PCM_ITS ---
(1) Ulcer of right foot with fat layer exposed Status: Resolved Current Visit: Yes Code(s): L97.512 - Non-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ulcer of other part of right foot with fat layer exposed (2) Skin ulcer of finger with fat layer exposed Status: Chronic Current Visit: Yes Code(s): L98.492 - Non-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ulcer of skin of other sites with fat layer exposed Comment: Right Index Finger (3) Diabetes mellitus type 2 with complications Status: Chronic Current Visit: No Code(s): E11.8 - Type 2 diabetes mellitus with unspecified complications (4) Neuropathy Status: Chronic Current Visit: No Code(s): G62.9 - Polyneuropathy, unspecified Comment: Most likely severe diabetic neuropathy [facility] (5) Type 2 diabetes mellitus with diabetic polyneuropathy Status: Chronic Current Visit: No Code(s): E11.42 - Type 2 diabetes mellitus with diabetic polyneuropathy Type of Wound Date of Service: 03/02/18 Chief Complaint: Right index finger ulcer and Right Foot Ulcer History of Wound: Mr. Espinoza is a 57yo with PMH of Diabetes currently seeing Dr Aparicio for lower extremity ulcers. I was asked to see him for chronic ulcers of his right index, middle and ring fingers. He is a [place] and has chronic upper extremity callus and has had ulcers which have typically healed well however, current episodes of his right middle and ring fingers have persisted despite management with neosporin application. There is no significant callous of his right index finger however, he noted the ulcer sometime in September after he had been in 0 degree weather with exposed hands for a long time. He reports pain in that digit but denies any discharge from the site. He has also been applying Neosporin without any significant improvement. Progress of Wound: Improving. - Physical Exam Vital Signs Temp Pulse Resp BP 98.2 F 90 18 129/65 H 03/02/18 10:03 03/02/18 10:03 03/02/18 10:03 03/02/18 10:03 General: Alert, Oriented x3, Cooperative, No apparent distress HEENT: Atraumatic, Normocephalic Oral: Moist Mucosa Neck: Supple Lungs: Normal air movement Cardiovascular: Regular rate Abdomen: Non Tender Extremities: No cyanosis, Edema Wound Measurements and Assessment WC - Nurse 1 - General Ulcer Measurement Start: 02/16/18 13:28 Freq: Status: Active Protocol: Activity Type Activity Date Activity User E-Sign Co-Sign Detail Recorded Client Recorded Date Recorded By Document 03/02/18 10:03 RB [id number] 03/02/18 10:14 AMINTA 03/02/18 10:03 Wound Center Nurse 1 [Ulcer Assessment] #8- RT HEEL PLANTAR ASPECT -Combined with other wound No -Current Size (cm) - Length 1.2 -Current Size (cm) - Width 1.1 -Current Size (cm) - Depth 0.2 -Total Square Cm 1.32 -Epithelialization Small 1-33% -Tunneling No -Undermining/Tunneling No -Circular Undermining No -Classification - Thickness Full Thickness without Exposed Support Structure -Exudate Amt Small (1-33%) -Exudate Type Serosanguineous -Wound Margin Thickened -Granulation Amt Medium (34-66%) -Granulation Quality [place] -Slough/Fibrin Yes -Necrosis Amt Medium (34-66%) -Necrotic Tissue Type Adherent Slough -Structure Exposed N/A -Texture (Mechelle-wound Skin Appearance) Assessed Callus -Moisture (Mechelle-wound Skin Appearance Assessed ) -Color (Mechelle-wound Skin Appearance) Assessed -Temperature (Mechelle-wound Skin No Abnormality Appearance) (Pt Warm) -Tenderness on Palpation (Mechelle-wound No Skin Appearance) -Ulcer Cleansing Rinsed/ Irrigated with Saline -Foul Odor after Cleansing No -Anesthetic Used 5% Lidocaine Gel 5-RIGHT INDEX FINGER -Combined with other wound No -Current Size (cm) - Length 0.4 -Current Size (cm) - Width 0.6 -Current Size (cm) - Depth 0.1 -Total Square Cm 0.24 -Photo Taken No -Epithelialization Small 1-33% -Tunneling No -Undermining/Tunneling No -Circular Undermining No -Classification - Thickness Full Thickness without Exposed Support Structure -Exudate Amt Small (1-33%) -Exudate Type Serosanguineous -Wound Margin Distinct, Outline Attached -Granulation Amt Small (1-33%) -Granulation Quality [place] -Slough/Fibrin Yes -Necrosis Amt Large (67-100%) -Necrotic Tissue Type Adherent Slough -Structure Exposed N/A -Texture (Mechelle-wound Skin Appearance) Callus -Moisture (Mechelle-wound Skin Appearance Maceration ) -Color (Mechelle-wound Skin Appearance) Assessed -Temperature (Mechelle-wound Skin No Abnormality Appearance) (Pt Warm) -Tenderness on Palpation (Mechelle-wound No Skin Appearance) -Ulcer Cleansing Rinsed/ Irrigated with Saline -Foul Odor after Cleansing No -Anesthetic Used 5% Lidocaine Gel [Edema Assessment] -Lower Limb Edema Present Yes -Right Calf (cm) 37.5 -Right Ankle (cm) 23.5 WC - Nurse 2 - General Ulcer CM Notes Start: 02/16/18 13:28 Freq: Status: Active Protocol: Activity Type Activity Date Activity User E-Sign Co-Sign Detail Recorded Client Recorded Date Recorded By Document 03/02/18 10:48 DV [id number] 03/02/18 10:53 DV 03/02/18 10:48 Wound Center Nurse 2 [Procedure/Treatment] #8- RT HEEL PLANTAR ASPECT -Time 10:49 -Correct Patient Yes -Correct Side, Site, Position Yes -Correct Procedure Yes -Procedure Performed Yes -Type of Procedure Debridement -Clinical Debridement Subcutaneous -Post Debridement Size (cm) - Length 0.5 -Post Debridement Size (cm) - Width 0.4 -Post Debridement Size (cm) - Depth 0.2 -Total Square Cm 0.20 -Wound/Ulcer Outcome Not Healed -Ulcer Cleansing Rinsed/ Irrigated with Saline -Foul Odor after Cleansing No -Bioengineered Tissue No -Bleeding Controlled with Pressure Silver Nitrate -Treatment Response Procedure Tolerated Well 5-RIGHT INDEX FINGER -Time 10:49 -Correct Patient Yes -Correct Side, Site, Position Yes -Correct Procedure Yes -Procedure Performed Yes -Type of Procedure Debridement -Clinical Debridement Subcutaneous -Post Debridement Size (cm) - Length 0.3 -Post Debridement Size (cm) - Width 0.6 -Post Debridement Size (cm) - Depth 0.1 -Total Square Cm 0.18 -Wound/Ulcer Outcome Not Healed -Ulcer Cleansing Rinsed/ Irrigated with Saline -Foul Odor after Cleansing No -Bioengineered Tissue No -Bleeding Controlled with Pressure -Treatment Response Procedure Tolerated Well [See Physician Procedure note for Specifics] Pain Scale: 0-10 Numeric [Pain] -Is Patient Pain Free? Yes Musculoskeletal: No Muscle Wasting Neurological: Cranial nerves II-XII grossly intact Psych/Mental Status: Normal Affect Debridement Note Post-Debridement Measurements/Treatment WC - Nurse 2 - General Ulcer CM Notes Start: 02/16/18 13:28 Freq: Status: Active Protocol: Activity Type Activity Date Activity User E-Sign Co-Sign Detail Recorded Client Recorded Date Recorded By Document 02/16/18 14:02 MW [id number] 02/16/18 14:17 MW Document 02/23/18 10:02 DV [id number] 02/23/18 10:09 DV Document 03/02/18 10:48 DV [id number] 03/02/18 10:53 DV 02/16/18 02/23/18 03/02/18 14:02 10:02 10:48 Wound Center Nurse 2 #8- RT HEEL PLANTAR ASPECT -Time 14:03 10:04 10:49 -Correct Patient Yes Yes Yes -Correct Side, Site, Position Yes Yes Yes -Correct Procedure Yes Yes Yes -Procedure Performed Yes Yes Yes -Type of Procedure Debridement Debridement Debridement -Clinical Debridement Subcutaneous Subcutaneous Subcutaneous -Post Debridement Size (cm) - Length 0.8 0.7 0.5 -Post Debridement Size (cm) - Width 0.7 0.5 0.4 -Post Debridement Size (cm) - Depth 0.4 0.3 0.2 -Total Square Cm 0.56 0.35 0.20 -Wound/Ulcer Outcome Not Healed Not Healed Not Healed -Ulcer Cleansing Rinsed/ Rinsed/ Rinsed/ Irrigated with Irrigated with Irrigated with Saline Saline Saline -Foul Odor after Cleansing No No No -Bioengineered Tissue No No No -Bleeding Controlled with Pressure Pressure Pressure Silver Nitrate -Treatment Response Procedure Procedure Procedure Tolerated Well Tolerated Well Tolerated Well 5-RIGHT INDEX FINGER -Time 14:03 10:07 10:49 -Correct Patient Yes Yes Yes -Correct Side, Site, Position Yes Yes Yes -Correct Procedure Yes Yes Yes -Procedure Performed Yes Yes Yes -Type of Procedure Debridement Debridement Debridement -Clinical Debridement Subcutaneous Subcutaneous Subcutaneous -Post Debridement Size (cm) - Length 0.3 0.4 0.3 -Post Debridement Size (cm) - Width 0.6 0.5 0.6 -Post Debridement Size (cm) - Depth 0.1 0.1 0.1 -Total Square Cm 0.18 0.20 0.18 -Wound/Ulcer Outcome Not Healed Not Healed Not Healed -Ulcer Cleansing Rinsed/ Rinsed/ Rinsed/ Irrigated with Irrigated with Irrigated with Saline Saline Saline -Foul Odor after Cleansing No No No -Bioengineered Tissue No No No -Bleeding Controlled with Pressure Pressure Pressure -Treatment Response Procedure Procedure Procedure Tolerated Well Tolerated Well Tolerated Well Pain Scale: 0-10 Numeric Is Patient Pain Free? Yes Yes Yes Wound debrided: Right index finger Wound Grade/Stage: Stage II Type of Debridement: Excisional debridement Anesthesia Used: 4% Lidocaine Solution Depth: Down to and including healthy tissue, in the subcutaneous layer Percentage of wound debrided: 100 Instrument Used: 3mm curette Tissue Removed: Slough and devitalized tissue Severity: Fat Layer Exposed Amount of bleeding with debridement: Mild Bleeding Controlled with: Pressure Patient tolerated procedure well - Additional Wound Wound debrided: Right heel Wound Grade/Stage: Stage II Type of Debridement: Excisional debridement Anesthesia Used: 4% Lidocaine Solution Depth: Down to and including healthy tissue, in the subcutaneous layer Percentage of wound debrided: 100 Instrument Used: 5mm curette, #15 blade Tissue Removed: Callus, slough and devitalized tissue Severity: Fat Layer Exposed Amount of bleeding with debridement: Mild Bleeding Controlled with: Pressure Patient tolerated procedure: Patient tolerated procedure well Assessment/Plan Clinical Impression(s) from Imaging Studies Ankle X-Ray 02/16/18 14:55 IMPRESSION: No fracture or dislocation. No definite radiographic findings of osteomyelitis. 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 No fracture or dislocation. No radiodense foreign body. No definite radiographic findings of osteomyelitis. Electronically Signed: Mazin Torres, at 16:37 EDT Tel , Service support , [facility] X-ray 02/16/18 15:00 IMPRESSION: No fracture or dislocation. No definite radiographic findings of osteomyelitis. Electronically Signed: Mazin Torres, at 16:24 EDT Tel , Service support , Active Problems (Last Reviewed 11/01/17 @ 16:03 by Wilmer Cartwright) Skin ulcer of finger with fat layer exposed (Chronic) Right Index Finger Assessment: Right Middle and Ring finger ulcers with Fat layer exposed - Healed. Right Index finger ulcer possible due to vasoconstriction/raynaud's. Right Foot traumatic wound/ulcer with fat layer exposed Plan: Right heel and index finger with some progress however, more from the right heel. Debridement of both ulcers done as documented above. Procedure was well-tolerated. Continue Tegan with Adaptic over top and loose gauze dressing to both ulcers. Continue Clindamycin. Tetanus shot gotten as recommended. Increase protein intake encouraged. 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 This note was generated with [employer] dictation software. It may contain incorrect words, spelling, and punctuation that were not noted in checking the note before signing.
[2018-03-09 09:46] VITALS: BP 132/76; PULSE 97; RESP 16; TEMP 37.3
--- NOTE | 2018-03-09 10:35 | PCM.WC.PN ---
(1) Ulcer of right foot with fat layer exposed Status: Resolved Current Visit: Yes Code(s): L97.512 - Non-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ulcer of other part of right foot with fat layer exposed (2) Skin ulcer of finger with fat layer exposed Status: Chronic Current Visit: Yes Code(s): L98.492 - Non-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ulcer of skin of other sites with fat layer exposed Comment: Right Index Finger (3) Diabetes mellitus type 2 with complications Status: Chronic Current Visit: No Code(s): E11.8 - Type 2 diabetes mellitus with unspecified complications (4) Neuropathy Status: Chronic Current Visit: No Code(s): G62.9 - Polyneuropathy, unspecified Comment: Most likely severe diabetic neuropathy [facility] (5) Type 2 diabetes mellitus with diabetic polyneuropathy Status: Chronic Current Visit: No Code(s): E11.42 - Type 2 diabetes mellitus with diabetic polyneuropathy Type of Wound Date of Service: 03/09/18 Chief Complaint: Right index finger ulcer and Right Foot Ulcer History of Wound: Mr. Espinoza is a 57yo with PMH of Diabetes currently seeing Dr Aparicio for lower extremity ulcers. I was asked to see him for chronic ulcers of his right index, middle and ring fingers. He is a [place] and has chronic upper extremity callus and has had ulcers which have typically healed well however, current episodes of his right middle and ring fingers have persisted despite management with neosporin application. There is no significant callous of his right index finger however, he noted the ulcer sometime in September after he had been in 0 degree weather with exposed hands for a long time. He reports pain in that digit but denies any discharge from the site. He has also been applying Neosporin without any significant improvement. Progress of Wound: Stable. - Physical Exam Vital Signs Temp Pulse Resp BP 99.1 F 97 16 132/76 H 03/09/18 09:46 03/09/18 09:46 03/09/18 09:46 03/09/18 09:46 General: Alert, Oriented x3, Cooperative, No apparent distress HEENT: Atraumatic, Normocephalic Oral: Moist Mucosa Neck: Supple Lungs: Normal air movement Cardiovascular: Regular rate Abdomen: Non Tender Extremities: No cyanosis, Edema Skin: Ulcer/ Wound Wound Measurements and Assessment WC - Nurse 1 - General Ulcer Measurement Start: 02/16/18 13:28 Freq: Status: Active Protocol: Activity Type Activity Date Activity User E-Sign Co-Sign Detail Recorded Client Recorded Date Recorded By Document 03/09/18 09:46 [facility] [id number] 03/09/18 09:55 [facility] 03/09/18 09:46 Wound Center Nurse 1 [Ulcer Assessment] #8- RT HEEL PLANTAR ASPECT -Combined with other wound No -Current Size (cm) - Length 0.3 -Current Size (cm) - Width 0.4 -Current Size (cm) - Depth 0.3 -Total Square Cm 0.12 -Photo Taken No -Epithelialization None Present -Tunneling No -Undermining/Tunneling Yes -Undermining/Tunneling Starts (O' 12 clock) -Undermining/Tunneling Ends (O'clock) 12 -Maximum Distance (cm) 0.2 -Circular Undermining Yes -Exudate Amt Small (1-33%) -Exudate Type Serous -Wound Margin Distinct, Outline Attached -Granulation Amt Large (67-100%) -Granulation Quality [place] -Slough/Fibrin No -Necrosis Amt None Present (0 %) -Texture (Mechelle-wound Skin Appearance) Callus -Moisture (Mechelle-wound Skin Appearance Dry/Scaly ) -Color (Mechelle-wound Skin Appearance) Assessed -Temperature (Mechelle-wound Skin No Abnormality Appearance) (Pt Warm) -Tenderness on Palpation (Mechelle-wound No Skin Appearance) -Ulcer Cleansing Rinsed/ Irrigated with Saline -Foul Odor after Cleansing No -Anesthetic Used 5% Lidocaine Gel 5-RIGHT INDEX FINGER -Combined with other wound No -Current Size (cm) - Length 0.6 -Current Size (cm) - Width 0.6 -Current Size (cm) - Depth 0.1 -Total Square Cm 0.36 -Photo Taken No -Epithelialization Small 1-33% -Tunneling No -Undermining/Tunneling No -Circular Undermining No -Exudate Amt Small (1-33%) -Exudate Type Serous -Wound Margin Distinct, Outline Attached -Granulation Amt Large (67-100%) -Granulation Quality [place] -Slough/Fibrin Yes -Necrosis Amt Small (1-33%) -Necrotic Tissue Type Adherent Slough -Structure Exposed None/Limited to Skin Breakdown -Texture (Mechelle-wound Skin Appearance) Scarring -Moisture (Mechelle-wound Skin Appearance Maceration ) Dry/Scaly -Color (Mechelle-wound Skin Appearance) Palor -Temperature (Mechelle-wound Skin No Abnormality Appearance) (Pt Warm) -Tenderness on Palpation (Mechelle-wound No Skin Appearance) -Ulcer Cleansing Rinsed/ Irrigated with Saline -Foul Odor after Cleansing No -Anesthetic Used 5% Lidocaine Gel WC - Nurse 2 - General Ulcer CM Notes Start: 02/16/18 13:28 Freq: Status: Active Protocol: Activity Type Activity Date Activity User E-Sign Co-Sign Detail Recorded Client Recorded Date Recorded By Document 03/09/18 10:23 DV [id number] 03/09/18 10:29 DV 03/09/18 10:23 Wound Center Nurse 2 [Procedure/Treatment] #8- RT HEEL PLANTAR ASPECT -Time 10:24 -Correct Patient Yes -Correct Side, Site, Position Yes -Correct Procedure Yes -Procedure Performed Yes -Type of Procedure Debridement -Clinical Debridement Subcutaneous -Post Debridement Size (cm) - Length 0.4 -Post Debridement Size (cm) - Width 0.3 -Post Debridement Size (cm) - Depth 0.2 -Total Square Cm 0.12 -Wound/Ulcer Outcome Not Healed -Ulcer Cleansing Rinsed/ Irrigated with Saline -Foul Odor after Cleansing No -Bioengineered Tissue No -Bleeding Controlled with Pressure -Treatment Response Procedure Tolerated Well 5-RIGHT INDEX FINGER -Time 10:24 -Correct Patient Yes -Correct Side, Site, Position Yes -Correct Procedure Yes -Procedure Performed Yes -Type of Procedure Debridement -Clinical Debridement Subcutaneous -Post Debridement Size (cm) - Length 0.4 -Post Debridement Size (cm) - Width 0.6 -Post Debridement Size (cm) - Depth 0.1 -Total Square Cm 0.24 -Wound/Ulcer Outcome Not Healed -Foul Odor after Cleansing No -Bioengineered Tissue No -Bleeding Controlled with Pressure -Treatment Response Procedure Tolerated Well [See Physician Procedure note for Specifics] Pain Scale: 0-10 Numeric [Pain] -Is Patient Pain Free? Yes Musculoskeletal: No Muscle Wasting Neurological: Cranial nerves II-XII grossly intact Psych/Mental Status: Normal Affect Debridement Note Post-Debridement Measurements/Treatment WC - Nurse 2 - General Ulcer CM Notes Start: 02/16/18 13:28 Freq: Status: Active Protocol: Activity Type Activity Date Activity User E-Sign Co-Sign Detail Recorded Client Recorded Date Recorded By Document 02/16/18 14:02 MW [id number] 02/16/18 14:17 MW Document 02/23/18 10:02 DV [id number] 02/23/18 10:09 DV Document 03/02/18 10:48 DV [id number] 03/02/18 10:53 DV Document 03/09/18 10:23 DV [id number] 03/09/18 10:29 DV 02/16/18 02/23/18 03/02/18 14:02 10:02 10:48 Wound Center Nurse 2 #8- RT HEEL PLANTAR ASPECT -Time 14:03 10:04 10:49 -Correct Patient Yes Yes Yes -Correct Side, Site, Position Yes Yes Yes -Correct Procedure Yes Yes Yes -Procedure Performed Yes Yes Yes -Type of Procedure Debridement Debridement Debridement -Clinical Debridement Subcutaneous Subcutaneous Subcutaneous -Post Debridement Size (cm) - Length 0.8 0.7 0.5 -Post Debridement Size (cm) - Width 0.7 0.5 0.4 -Post Debridement Size (cm) - Depth 0.4 0.3 0.2 -Total Square Cm 0.56 0.35 0.20 -Wound/Ulcer Outcome Not Healed Not Healed Not Healed -Ulcer Cleansing Rinsed/ Rinsed/ Rinsed/ Irrigated with Irrigated with Irrigated with Saline Saline Saline -Foul Odor after Cleansing No No No -Bioengineered Tissue No No No -Bleeding Controlled with Pressure Pressure Pressure Silver Nitrate -Treatment Response Procedure Procedure Procedure Tolerated Well Tolerated Well Tolerated Well 5-RIGHT INDEX FINGER -Time 14:03 10:07 10:49 -Correct Patient Yes Yes Yes -Correct Side, Site, Position Yes Yes Yes -Correct Procedure Yes Yes Yes -Procedure Performed Yes Yes Yes -Type of Procedure Debridement Debridement Debridement -Clinical Debridement Subcutaneous Subcutaneous Subcutaneous -Post Debridement Size (cm) - Length 0.3 0.4 0.3 -Post Debridement Size (cm) - Width 0.6 0.5 0.6 -Post Debridement Size (cm) - Depth 0.1 0.1 0.1 -Total Square Cm 0.18 0.20 0.18 -Wound/Ulcer Outcome Not Healed Not Healed Not Healed -Ulcer Cleansing Rinsed/ Rinsed/ Rinsed/ Irrigated with Irrigated with Irrigated with Saline Saline Saline -Foul Odor after Cleansing No No No -Bioengineered Tissue No No No -Bleeding Controlled with Pressure Pressure Pressure -Treatment Response Procedure Procedure Procedure Tolerated Well Tolerated Well Tolerated Well Pain Scale: 0-10 Numeric Is Patient Pain Free? Yes Yes Yes 03/09/18 10:23 Wound Center Nurse 2 #8- RT HEEL PLANTAR ASPECT -Time 10:24 -Correct Patient Yes -Correct Side, Site, Position Yes -Correct Procedure Yes -Procedure Performed Yes -Type of Procedure Debridement -Clinical Debridement Subcutaneous -Post Debridement Size (cm) - Length 0.4 -Post Debridement Size (cm) - Width 0.3 -Post Debridement Size (cm) - Depth 0.2 -Total Square Cm 0.12 -Wound/Ulcer Outcome Not Healed -Ulcer Cleansing Rinsed/ Irrigated with Saline -Foul Odor after Cleansing No -Bioengineered Tissue No -Bleeding Controlled with Pressure -Treatment Response Procedure Tolerated Well 5-RIGHT INDEX FINGER -Time 10:24 -Correct Patient Yes -Correct Side, Site, Position Yes -Correct Procedure Yes -Procedure Performed Yes -Type of Procedure Debridement -Clinical Debridement Subcutaneous -Post Debridement Size (cm) - Length 0.4 -Post Debridement Size (cm) - Width 0.6 -Post Debridement Size (cm) - Depth 0.1 -Total Square Cm 0.24 -Wound/Ulcer Outcome Not Healed -Ulcer Cleansing -Foul Odor after Cleansing No -Bioengineered Tissue No -Bleeding Controlled with Pressure -Treatment Response Procedure Tolerated Well Pain Scale: 0-10 Numeric Is Patient Pain Free? Yes Wound debrided: Right heel Wound Grade/Stage: Stage II Type of Debridement: Excisional debridement Anesthesia Used: 5% Lidocaine Gel Depth: Down to and including healthy tissue, in the subcutaneous layer Percentage of wound debrided: 100 Instrument Used: 3mm curette, 5mm curette Tissue Removed: Slough and devitalized tissue Severity: Fat Layer Exposed Amount of bleeding with debridement: Mild Bleeding Controlled with: Pressure Patient tolerated procedure well - Additional Wound Wound debrided: Right index finger Wound Grade/Stage: Stage II Type of Debridement: Excisional debridement Anesthesia Used: 5% Lidocaine Gel Depth: Down to and including healthy tissue, in the subcutaneous layer Percentage of wound debrided: 100 Instrument Used: 3mm curette Tissue Removed: Slough and devitalized tissue Severity: Fat Layer Exposed Amount of bleeding with debridement: Mild Bleeding Controlled with: Pressure Patient tolerated procedure: Patient tolerated procedure well Assessment/Plan Clinical Impression(s) from Imaging Studies Ankle X-Ray 02/16/18 14:55 IMPRESSION: No fracture or dislocation. No definite radiographic findings of osteomyelitis. 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 No fracture or dislocation. No radiodense foreign body. No definite radiographic findings of osteomyelitis. Electronically Signed: Mazin De Leonfred, at 16:37 EDT Tel , Service support , [facility] X-ray 02/16/18 15:00 IMPRESSION: No fracture or dislocation. No definite radiographic findings of osteomyelitis. Electronically Signed: Mazin De Leonfred, at 16:24 EDT Tel , Service support , Active Problems (Last Reviewed 11/01/17 @ 16:03 by Wilmer Cartwright) Skin ulcer of finger with fat layer exposed (Chronic) Right Index Finger Assessment: Right Middle and Ring finger ulcers with Fat layer exposed - Healed. Right Index finger ulcer possible due to vasoconstriction/raynaud's. Right Foot traumatic wound/ulcer with fat layer exposed Plan: No significant changes in the past week. Debridement of both ulcers done as documented above. Procedure was well-tolerated. Continue Tegan with Adaptic over top and loose gauze dressing to both ulcers. Double layer tubi manager office for lower extremity edema management. Offloading of both heel and index finger recommended. Increase protein intake encouraged. 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 This note was generated with [employer] software. It may contain incorrect words, spelling, and punctuation that were not noted in checking the note before signing.
--- NOTE | 2018-03-09 10:39 | PN.PCM_ITS ---
(1) Ulcer of right foot with fat layer exposed Status: Resolved Current Visit: Yes Code(s): L97.512 - Non-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ulcer of other part of right foot with fat layer exposed (2) Skin ulcer of finger with fat layer exposed Status: Chronic Current Visit: Yes Code(s): L98.492 - Non-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ulcer of skin of other sites with fat layer exposed Comment: Right Index Finger (3) Diabetes mellitus type 2 with complications Status: Chronic Current Visit: No Code(s): E11.8 - Type 2 diabetes mellitus with unspecified complications (4) Neuropathy Status: Chronic Current Visit: No Code(s): G62.9 - Polyneuropathy, unspecified Comment: Most likely severe diabetic neuropathy [facility] (5) Type 2 diabetes mellitus with diabetic polyneuropathy Status: Chronic Current Visit: No Code(s): E11.42 - Type 2 diabetes mellitus with diabetic polyneuropathy Type of Wound Date of Service: 03/09/18 Chief Complaint: Right index finger ulcer and Right Foot Ulcer History of Wound: Mr. Espinoza is a 57yo with PMH of Diabetes currently seeing Dr Aparicio for lower extremity ulcers. I was asked to see him for chronic ulcers of his right index, middle and ring fingers. He is a [place] and has chronic upper extremity callus and has had ulcers which have typically healed well however, current episodes of his right middle and ring fingers have persisted despite management with neosporin application. There is no significant callous of his right index finger however, he noted the ulcer sometime in September after he had been in 0 degree weather with exposed hands for a long time. He reports pain in that digit but denies any discharge from the site. He has also been applying Neosporin without any significant improvement. Progress of Wound: Stable. - Physical Exam Vital Signs Temp Pulse Resp BP 99.1 F 97 16 132/76 H 03/09/18 09:46 03/09/18 09:46 03/09/18 09:46 03/09/18 09:46 General: Alert, Oriented x3, Cooperative, No apparent distress HEENT: Atraumatic, Normocephalic Oral: Moist Mucosa Neck: Supple Lungs: Normal air movement Cardiovascular: Regular rate Abdomen: Non Tender Extremities: No cyanosis, Edema Skin: Ulcer/ Wound Wound Measurements and Assessment WC - Nurse 1 - General Ulcer Measurement Start: 02/16/18 13:28 Freq: Status: Active Protocol: Activity Type Activity Date Activity User E-Sign Co-Sign Detail Recorded Client Recorded Date Recorded By Document 03/09/18 09:46 [facility] [id number] 03/09/18 09:55 [facility] 03/09/18 09:46 Wound Center Nurse 1 [Ulcer Assessment] #8- RT HEEL PLANTAR ASPECT -Combined with other wound No -Current Size (cm) - Length 0.3 -Current Size (cm) - Width 0.4 -Current Size (cm) - Depth 0.3 -Total Square Cm 0.12 -Photo Taken No -Epithelialization None Present -Tunneling No -Undermining/Tunneling Yes -Undermining/Tunneling Starts (O' 12 clock) -Undermining/Tunneling Ends (O'clock) 12 -Maximum Distance (cm) 0.2 -Circular Undermining Yes -Exudate Amt Small (1-33%) -Exudate Type Serous -Wound Margin Distinct, Outline Attached -Granulation Amt Large (67-100%) -Granulation Quality [facility] -Slough/Fibrin No -Necrosis Amt None Present (0 %) -Texture (Mechelle-wound Skin Appearance) Callus -Moisture ([place]helle-wound Skin Appearance Dry/Scaly ) -Color ([place]helle-wound Skin Appearance) Assessed -Temperature ([place]le-wound Skin No Abnormality Appearance) (Pt Warm) -Tenderness on Palpation ([place]helle-wound No Skin Appearance) -Ulcer Cleansing Rinsed/ Irrigated with Saline -Foul Odor after Cleansing No -Anesthetic Used 5% Lidocaine Gel 5-RIGHT INDEX FINGER -Combined with other wound No -Current Size (cm) - Length 0.6 -Current Size (cm) - Width 0.6 -Current Size (cm) - Depth 0.1 -Total Square Cm 0.36 -Photo Taken No -Epithelialization Small 1-33% -Tunneling No -Undermining/Tunneling No -Circular Undermining No -Exudate Amt Small (1-33%) -Exudate Type Serous -Wound Margin Distinct, Outline Attached -Granulation Amt Large (67-100%) -Granulation Quality [facility] -Slough/Fibrin Yes -Necrosis Amt Small (1-33%) -Necrotic Tissue Type Adherent Slough -Structure Exposed None/Limited to Skin Breakdown -Texture (M[place]helle-wound Skin Appearance) Scarring -Moisture ([place]helle-wound Skin Appearance Maceration ) Dry/Scaly -Color ([place]helle-wound Skin Appearance) Palor -Temperature ([place]helle-wound Skin No Abnormality Appearance) (Pt Warm) -Tenderness on Palpation ([place]helle-wound No Skin Appearance) -Ulcer Cleansing Rinsed/ Irrigated with Saline -Foul Odor after Cleansing No -Anesthetic Used 5% Lidocaine Gel WC - Nurse 2 - General Ulcer CM Notes Start: 02/16/18 13:28 Freq: Status: Active Protocol: Activity Type Activity Date Activity User E-Sign Co-Sign Detail Recorded Client Recorded Date Recorded By Document 03/09/18 10:23 DV [id number] 03/09/18 10:29 DV 03/09/18 10:23 Wound Center Nurse 2 [Procedure/Treatment] #8- RT HEEL PLANTAR ASPECT -Time 10:24 -Correct Patient Yes -Correct Side, Site, Position Yes -Correct Procedure Yes -Procedure Performed Yes -Type of Procedure Debridement -Clinical Debridement Subcutaneous -Post Debridement Size (cm) - Length 0.4 -Post Debridement Size (cm) - Width 0.3 -Post Debridement Size (cm) - Depth 0.2 -Total Square Cm 0.12 -Wound/Ulcer Outcome Not Healed -Ulcer Cleansing Rinsed/ Irrigated with Saline -Foul Odor after Cleansing No -Bioengineered Tissue No -Bleeding Controlled with Pressure -Treatment Response Procedure Tolerated Well 5-RIGHT INDEX FINGER -Time 10:24 -Correct Patient Yes -Correct Side, Site, Position Yes -Correct Procedure Yes -Procedure Performed Yes -Type of Procedure Debridement -Clinical Debridement Subcutaneous -Post Debridement Size (cm) - Length 0.4 -Post Debridement Size (cm) - Width 0.6 -Post Debridement Size (cm) - Depth 0.1 -Total Square Cm 0.24 -Wound/Ulcer Outcome Not Healed -Foul Odor after Cleansing No -Bioengineered Tissue No -Bleeding Controlled with Pressure -Treatment Response Procedure Tolerated Well [See Physician Procedure note for Specifics] Pain Scale: 0-10 Numeric [Pain] -Is Patient Pain Free? Yes Musculoskeletal: No Muscle Wasting Neurological: Cranial nerves II-XII grossly intact Psych/Mental Status: Normal Affect Debridement Note Post-Debridement Measurements/Treatment WC - Nurse 2 - General Ulcer CM Notes Start: 02/16/18 13:28 Freq: Status: Active Protocol: Activity Type Activity Date Activity User E-Sign Co-Sign Detail Recorded Client Recorded Date Recorded By Document 02/16/18 14:02 MW [id number] 02/16/18 14:17 MW Document 02/23/18 10:02 DV [id number] 02/23/18 10:09 DV Document 03/02/18 10:48 DV [id number] 03/02/18 10:53 DV Document 03/09/18 10:23 DV [id number] 03/09/18 10:29 DV 02/16/18 02/23/18 03/02/18 14:02 10:02 10:48 Wound Center Nurse 2 #8- RT HEEL PLANTAR ASPECT -Time 14:03 10:04 10:49 -Correct Patient Yes Yes Yes -Correct Side, Site, Position Yes Yes Yes -Correct Procedure Yes Yes Yes -Procedure Performed Yes Yes Yes -Type of Procedure Debridement Debridement Debridement -Clinical Debridement Subcutaneous Subcutaneous Subcutaneous -Post Debridement Size (cm) - Length 0.8 0.7 0.5 -Post Debridement Size (cm) - Width 0.7 0.5 0.4 -Post Debridement Size (cm) - Depth 0.4 0.3 0.2 -Total Square Cm 0.56 0.35 0.20 -Wound/Ulcer Outcome Not Healed Not Healed Not Healed -Ulcer Cleansing Rinsed/ Rinsed/ Rinsed/ Irrigated with Irrigated with Irrigated with Saline Saline Saline -Foul Odor after Cleansing No No No -Bioengineered Tissue No No No -Bleeding Controlled with Pressure Pressure Pressure Silver Nitrate -Treatment Response Procedure Procedure Procedure Tolerated Well Tolerated Well Tolerated Well 5-RIGHT INDEX FINGER -Time 14:03 10:07 10:49 -Correct Patient Yes Yes Yes -Correct Side, Site, Position Yes Yes Yes -Correct Procedure Yes Yes Yes -Procedure Performed Yes Yes Yes -Type of Procedure Debridement Debridement Debridement -Clinical Debridement Subcutaneous Subcutaneous Subcutaneous -Post Debridement Size (cm) - Length 0.3 0.4 0.3 -Post Debridement Size (cm) - Width 0.6 0.5 0.6 -Post Debridement Size (cm) - Depth 0.1 0.1 0.1 -Total Square Cm 0.18 0.20 0.18 -Wound/Ulcer Outcome Not Healed Not Healed Not Healed -Ulcer Cleansing Rinsed/ Rinsed/ Rinsed/ Irrigated with Irrigated with Irrigated with Saline Saline Saline -Foul Odor after Cleansing No No No -Bioengineered Tissue No No No -Bleeding Controlled with Pressure Pressure Pressure -Treatment Response Procedure Procedure Procedure Tolerated Well Tolerated Well Tolerated Well Pain Scale: 0-10 Numeric Is Patient Pain Free? Yes Yes Yes 03/09/18 10:23 Wound Center Nurse 2 #8- RT HEEL PLANTAR ASPECT -Time 10:24 -Correct Patient Yes -Correct Side, Site, Position Yes -Correct Procedure Yes -Procedure Performed Yes -Type of Procedure Debridement -Clinical Debridement Subcutaneous -Post Debridement Size (cm) - Length 0.4 -Post Debridement Size (cm) - Width 0.3 -Post Debridement Size (cm) - Depth 0.2 -Total Square Cm 0.12 -Wound/Ulcer Outcome Not Healed -Ulcer Cleansing Rinsed/ Irrigated with Saline -Foul Odor after Cleansing No -Bioengineered Tissue No -Bleeding Controlled with Pressure -Treatment Response Procedure Tolerated Well 5-RIGHT INDEX FINGER -Time 10:24 -Correct Patient Yes -Correct Side, Site, Position Yes -Correct Procedure Yes -Procedure Performed Yes -Type of Procedure Debridement -Clinical Debridement Subcutaneous -Post Debridement Size (cm) - Length 0.4 -Post Debridement Size (cm) - Width 0.6 -Post Debridement Size (cm) - Depth 0.1 -Total Square Cm 0.24 -Wound/Ulcer Outcome Not Healed -Ulcer Cleansing -Foul Odor after Cleansing No -Bioengineered Tissue No -Bleeding Controlled with Pressure -Treatment Response Procedure Tolerated Well Pain Scale: 0-10 Numeric Is Patient Pain Free? Yes Wound debrided: Right heel Wound Grade/Stage: Stage II Type of Debridement: Excisional debridement Anesthesia Used: 5% Lidocaine Gel Depth: Down to and including healthy tissue, in the subcutaneous layer Percentage of wound debrided: 100 Instrument Used: 3mm curette, 5mm curette Tissue Removed: Slough and devitalized tissue Severity: Fat Layer Exposed Amount of bleeding with debridement: Mild Bleeding Controlled with: Pressure Patient tolerated procedure well - Additional Wound Wound debrided: Right index finger Wound Grade/Stage: Stage II Type of Debridement: Excisional debridement Anesthesia Used: 5% Lidocaine Gel Depth: Down to and including healthy tissue, in the subcutaneous layer Percentage of wound debrided: 100 Instrument Used: 3mm curette Tissue Removed: Slough and devitalized tissue Severity: Fat Layer Exposed Amount of bleeding with debridement: Mild Bleeding Controlled with: Pressure Patient tolerated procedure: Patient tolerated procedure well Assessment/Plan Clinical Impression(s) from Imaging Studies Ankle X-Ray 02/16/18 14:55 IMPRESSION: No fracture or dislocation. No definite radiographic findings of osteomyelitis. 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 No fracture or dislocation. No radiodense foreign body. No definite radiographic findings of osteomyelitis. Electronically Signed: Mazin De Leonfred, at 16:37 EDT Tel , Service support , Os [place] X-ray 02/16/18 15:00 IMPRESSION: No fracture or dislocation. No definite radiographic findings of osteomyelitis. Electronically Signed: Mazin De Leonfred, at 16:24 EDT Tel , Service support , Active Problems (Last Reviewed 11/01/17 @ 16:03 by Wilmer Cartwright) Skin ulcer of finger with fat layer exposed (Chronic) Right Index Finger Assessment: Right Middle and Ring finger ulcers with Fat layer exposed - Healed. Right Index finger ulcer possible due to vasoconstriction/raynaud's. Right Foot traumatic wound/ulcer with fat layer exposed Plan: No significant changes in the past week. Debridement of both ulcers done as documented above. Procedure was well-tolerated. Continue Tegan with Adaptic over top and loose gauze dressing to both ulcers. 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 Offloading of both heel and index finger recommended. Increase protein intake encouraged. 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 This note was generated with [employer] software. It may contain incorrect words, spelling, and punctuation that were not noted in checking the note before signing.
[2018-03-16 11:02] VITALS: BP 132/78; PULSE 93; RESP 18; TEMP 36.4
--- NOTE | 2018-03-16 13:42 | PCM.WC.PN ---
(1) Ulcer of right foot with fat layer exposed Status: Resolved Current Visit: Yes Code(s): L97.512 - Non-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ulcer of other part of right foot with fat layer exposed (2) Skin ulcer of finger with fat layer exposed Status: Chronic Current Visit: Yes Code(s): L98.492 - Non-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ulcer of skin of other sites with fat layer exposed Comment: Right Index Finger (3) Diabetes mellitus type 2 with complications Status: Chronic Current Visit: No Code(s): E11.8 - Type 2 diabetes mellitus with unspecified complications (4) Neuropathy Status: Chronic Current Visit: No Code(s): G62.9 - Polyneuropathy, unspecified Comment: Most likely severe diabetic neuropathy [facility] (5) Type 2 diabetes mellitus with diabetic polyneuropathy Status: Chronic Current Visit: No Code(s): E11.42 - Type 2 diabetes mellitus with diabetic polyneuropathy Type of Wound Date of Service: 03/16/18 Chief Complaint: Right index finger ulcer and Right Foot Ulcer History of Wound: Mr. Espinoza is a 57yo with PMH of Diabetes currently seeing Dr Aparicio for lower extremity ulcers. I was asked to see him for chronic ulcers of his right index, middle and ring fingers. He is a [place] and has chronic upper extremity callus and has had ulcers which have typically healed well however, current episodes of his right middle and ring fingers have persisted despite management with neosporin application. There is no significant callous of his right index finger however, he noted the ulcer sometime in September after he had been in 0 degree weather with exposed hands for a long time. He reports pain in that digit but denies any discharge from the site. He has also been applying Neosporin without any significant improvement. Progress of Wound: Improving. - Physical Exam Vital Signs Temp Pulse Resp BP 97.5 F L 93 18 132/78 H 03/16/18 11:02 03/16/18 11:02 03/16/18 11:02 03/16/18 11:02 General: Alert, Oriented x3, Cooperative, No apparent distress HEENT: Atraumatic, Normocephalic Oral: Moist Mucosa Neck: Supple Lungs: Normal air movement Cardiovascular: Regular rate Abdomen: Non Tender Extremities: No cyanosis, Edema Skin: Ulcer/ Wound Wound Measurements and Assessment WC - Nurse 1 - General Ulcer Measurement Start: 02/16/18 13:28 Freq: Status: Active Protocol: Activity Type Activity Date Activity User E-Sign Co-Sign Detail Recorded Client Recorded Date Recorded By Document 03/16/18 11:02 RB [id number] 03/16/18 11:13 AMINTA 03/16/18 11:02 Wound Center Nurse 1 [Ulcer Assessment] #8- RT HEEL PLANTAR ASPECT -Combined with other wound No -Current Size (cm) - Length 1.5 -Current Size (cm) - Width 1.6 -Current Size (cm) - Depth 0.3 -Total Square Cm 2.40 -Photo Taken No -Tunneling No -Undermining/Tunneling No -Circular Undermining No -Classification - Thickness Full Thickness without Exposed Support Structure -Exudate Amt Small (1-33%) -Exudate Type Serosanguineous -Wound Margin Distinct, Outline Attached -Granulation Amt Large (67-100%) -Granulation Quality [place] -Slough/Fibrin Yes -Necrosis Amt Small (1-33%) -Necrotic Tissue Type Adherent Slough -Structure Exposed N/A -Texture (Mechelle-wound Skin Appearance) Callus -Moisture ([place]helle-wound Skin Appearance Assessed ) -Color ([place]helle-wound Skin Appearance) Assessed -Temperature ([place]le-wound Skin No Abnormality Appearance) (Pt Warm) -Tenderness on Palpation ([place]helle-wound No Skin Appearance) -Ulcer Cleansing Rinsed/ Irrigated with Saline -Foul Odor after Cleansing No -Anesthetic Used 5% Lidocaine Gel 5-RIGHT INDEX FINGER -Combined with other wound No -Current Size (cm) - Length 0.1 -Current Size (cm) - Width 0.1 -Current Size (cm) - Depth 0.1 -Total Square Cm 0.01 -Photo Taken No -Epithelialization Small 1-33% -Tunneling No -Undermining/Tunneling No -Circular Undermining No -Classification - Thickness Full Thickness without Exposed Support Structure -Exudate Amt Small (1-33%) -Exudate Type Serosanguineous -Wound Margin Distinct, Outline Attached -Granulation Amt Large (67-100%) -Granulation Quality [place] -Slough/Fibrin Yes -Necrosis Amt Small (1-33%) -Necrotic Tissue Type Adherent Slough -Structure Exposed N/A -Texture (Mechelle-wound Skin Appearance) Assessed Callus -Moisture ([place]helle-wound Skin Appearance Assessed ) -Color ([place]helle-wound Skin Appearance) Assessed -Temperature ([place]le-wound Skin No Abnormality Appearance) (Pt Warm) -Tenderness on Palpation ([place]echelle-wound No Skin Appearance) -Ulcer Cleansing Rinsed/ Irrigated with Saline -Foul Odor after Cleansing No -Anesthetic Used 5% Lidocaine Gel [Edema Assessment] -Lower Limb Edema Present Yes -Right Calf (cm) 38 -Right Ankle (cm) 23.5 WC - Nurse 2 - General Ulcer CM Notes Start: 02/16/18 13:28 Freq: Status: Active Protocol: Activity Type Activity Date Activity User E-Sign Co-Sign Detail Recorded Client Recorded Date Recorded By Document 03/16/18 12:02 DV [id number] 03/16/18 12:05 DV 03/16/18 12:02 Wound Center Nurse 2 [Procedure/Treatment] #8- RT HEEL PLANTAR ASPECT -Time 12:03 -Correct Patient Yes -Correct Side, Site, Position Yes -Correct Procedure Yes -Procedure Performed Yes -Type of Procedure Debridement -Clinical Debridement Subcutaneous -Post Debridement Size (cm) - Length 0.3 -Post Debridement Size (cm) - Width 0.3 -Post Debridement Size (cm) - Depth 0.2 -Total Square Cm 0.09 -Wound/Ulcer Outcome Not Healed -Ulcer Cleansing Rinsed/ Irrigated with Saline -Foul Odor after Cleansing No -Bioengineered Tissue No -Bleeding Controlled with Pressure -Treatment Response Procedure Tolerated Well 5-RIGHT INDEX FINGER -Time 12:04 -Correct Patient Yes -Correct Side, Site, Position Yes -Correct Procedure Yes -Procedure Performed No -Post Debridement Size (cm) - Length 0.1 -Post Debridement Size (cm) - Width 0.1 -Post Debridement Size (cm) - Depth 0.1 -Total Square Cm 0.01 -Wound/Ulcer Outcome Not Healed -Ulcer Cleansing Rinsed/ Irrigated with Saline -Foul Odor after Cleansing No -Bioengineered Tissue No -Bleeding Controlled with NA [See Physician Procedure note for Specifics] Pain Scale: 0-10 Numeric [Pain] -Is Patient Pain Free? Yes Neurological: Cranial nerves II-XII grossly intact Psych/Mental Status: Normal Affect Debridement Note Post-Debridement Measurements/Treatment WC - Nurse 2 - General Ulcer CM Notes Start: 02/16/18 13:28 Freq: Status: Active Protocol: Activity Type Activity Date Activity User E-Sign Co-Sign Detail Recorded Client Recorded Date Recorded By Document 02/16/18 14:02 MW [id number] 02/16/18 14:17 MW Document 02/23/18 10:02 DV [id number] 02/23/18 10:09 DV Document 03/02/18 10:48 DV [id number] 03/02/18 10:53 DV Document 03/09/18 10:23 DV [id number] 03/09/18 10:29 DV Document 03/16/18 12:02 DV [id number] 03/16/18 12:05 DV 02/16/18 02/23/18 03/02/18 14:02 10:02 10:48 Wound Center Nurse 2 #8- RT HEEL PLANTAR ASPECT -Time 14:03 10:04 10:49 -Correct Patient Yes Yes Yes -Correct Side, Site, Position Yes Yes Yes -Correct Procedure Yes Yes Yes -Procedure Performed Yes Yes Yes -Type of Procedure Debridement Debridement Debridement -Clinical Debridement Subcutaneous Subcutaneous Subcutaneous -Post Debridement Size (cm) - Length 0.8 0.7 0.5 -Post Debridement Size (cm) - Width 0.7 0.5 0.4 -Post Debridement Size (cm) - Depth 0.4 0.3 0.2 -Total Square Cm 0.56 0.35 0.20 -Wound/Ulcer Outcome Not Healed Not Healed Not Healed -Ulcer Cleansing Rinsed/ Rinsed/ Rinsed/ Irrigated with Irrigated with Irrigated with Saline Saline Saline -Foul Odor after Cleansing No No No -Bioengineered Tissue No No No -Bleeding Controlled with Pressure Pressure Pressure Silver Nitrate -Treatment Response Procedure Procedure Procedure Tolerated Well Tolerated Well Tolerated Well 5-RIGHT INDEX FINGER -Time 14:03 10:07 10:49 -Correct Patient Yes Yes Yes -Correct Side, Site, Position Yes Yes Yes -Correct Procedure Yes Yes Yes -Procedure Performed Yes Yes Yes -Type of Procedure Debridement Debridement Debridement -Clinical Debridement Subcutaneous Subcutaneous Subcutaneous -Post Debridement Size (cm) - Length 0.3 0.4 0.3 -Post Debridement Size (cm) - Width 0.6 0.5 0.6 -Post Debridement Size (cm) - Depth 0.1 0.1 0.1 -Total Square Cm 0.18 0.20 0.18 -Wound/Ulcer Outcome Not Healed Not Healed Not Healed -Ulcer Cleansing Rinsed/ Rinsed/ Rinsed/ Irrigated with Irrigated with Irrigated with Saline Saline Saline -Foul Odor after Cleansing No No No -Bioengineered Tissue No No No -Bleeding Controlled with Pressure Pressure Pressure -Treatment Response Procedure Procedure Procedure Tolerated Well Tolerated Well Tolerated Well Pain Scale: 0-10 Numeric Is Patient Pain Free? Yes Yes Yes 03/09/18 03/16/18 10:23 12:02 Wound Center Nurse 2 #8- RT HEEL PLANTAR ASPECT -Time 10:24 12:03 -Correct Patient Yes Yes -Correct Side, Site, Position Yes Yes -Correct Procedure Yes Yes -Procedure Performed Yes Yes -Type of Procedure Debridement Debridement -Clinical Debridement Subcutaneous Subcutaneous -Post Debridement Size (cm) - Length 0.4 0.3 -Post Debridement Size (cm) - Width 0.3 0.3 -Post Debridement Size (cm) - Depth 0.2 0.2 -Total Square Cm 0.12 0.09 -Wound/Ulcer Outcome Not Healed Not Healed -Ulcer Cleansing Rinsed/ Rinsed/ Irrigated with Irrigated with Saline Saline -Foul Odor after Cleansing No No -Bioengineered Tissue No No -Bleeding Controlled with Pressure Pressure -Treatment Response Procedure Procedure Tolerated Well Tolerated Well 5-RIGHT INDEX FINGER -Time 10:24 12:04 -Correct Patient Yes Yes -Correct Side, Site, Position Yes Yes -Correct Procedure Yes Yes -Procedure Performed Yes No -Type of Procedure Debridement -Clinical Debridement Subcutaneous -Post Debridement Size (cm) - Length 0.4 0.1 -Post Debridement Size (cm) - Width 0.6 0.1 -Post Debridement Size (cm) - Depth 0.1 0.1 -Total Square Cm 0.24 0.01 -Wound/Ulcer Outcome Not Healed Not Healed -Ulcer Cleansing Rinsed/ Irrigated with Saline -Foul Odor after Cleansing No No -Bioengineered Tissue No No -Bleeding Controlled with Pressure NA -Treatment Response Procedure Tolerated Well Pain Scale: 0-10 Numeric Is Patient Pain Free? Yes Yes Wound debrided: Right heel Wound Grade/Stage: Stage II Type of Debridement: Excisional debridement Anesthesia Used: 4% Lidocaine Solution Depth: Down to and including healthy tissue, in the subcutaneous layer Percentage of wound debrided: 100 Instrument Used: 3mm curette Tissue Removed: Slough and devitalized tissue Severity: Fat Layer Exposed Amount of bleeding with debridement: Mild Bleeding Controlled with: Pressure Patient tolerated procedure well Assessment/Plan Clinical Impression(s) from Imaging Studies Ankle X-Ray 02/16/18 14:55 IMPRESSION: No fracture or dislocation. No definite radiographic findings of osteomyelitis. 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 No fracture or dislocation. No radiodense foreign body. No definite radiographic findings of osteomyelitis. Electronically Signed: Mazin De Leonfred, at 16:37 EDT Tel , Service support , [facility] [place] X-ray 02/16/18 15:00 IMPRESSION: No fracture or dislocation. No definite radiographic findings of osteomyelitis. Electronically Signed: Mazin De Leonfred, at 16:24 EDT Tel , Service support , Active Problems (Last Reviewed 11/01/17 @ 16:03 by Wilmer Cartwright) Skin ulcer of finger with fat layer exposed (Chronic) Right Index Finger Assessment: Right Middle and Ring finger ulcers with Fat layer exposed - Healed. Right Index finger ulcer possible due to vasoconstriction/raynaud's. Right Foot traumatic wound/ulcer with fat layer exposed Plan: Right index finger ulcer has improved significantly with off loading/splinting. Debridement of right heel ulcer done as documented above, Procedure was well-tolerated. Continue Tegan with Adaptic over top and loose gauze dressing to both ulcers. 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 Continued offloading of both heel and index finger recommended. Increase protein intake encouraged. 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 This note was generated with [employer] software. It may contain incorrect words, spelling, and punctuation that were not noted in checking the note before signing.
--- NOTE | 2018-03-16 13:46 | PN.PCM_ITS ---
(1) Ulcer of right foot with fat layer exposed Status: Resolved Current Visit: Yes Code(s): L97.512 - Non-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ulcer of other part of right foot with fat layer exposed (2) Skin ulcer of finger with fat layer exposed Status: Chronic Current Visit: Yes Code(s): L98.492 - Non-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ulcer of skin of other sites with fat layer exposed Comment: Right Index Finger (3) Diabetes mellitus type 2 with complications Status: Chronic Current Visit: No Code(s): E11.8 - Type 2 diabetes mellitus with unspecified complications (4) Neuropathy Status: Chronic Current Visit: No Code(s): G62.9 - Polyneuropathy, unspecified Comment: Most likely severe diabetic neuropathy [facility] (5) Type 2 diabetes mellitus with diabetic polyneuropathy Status: Chronic Current Visit: No Code(s): E11.42 - Type 2 diabetes mellitus with diabetic polyneuropathy Type of Wound Date of Service: 03/16/18 Chief Complaint: Right index finger ulcer and Right Foot Ulcer History of Wound: Mr. Espinoza is a 57yo with PMH of Diabetes currently seeing Dr Aparicio for lower extremity ulcers. I was asked to see him for chronic ulcers of his right index, middle and ring fingers. He is a [place] and has chronic upper extremity callus and has had ulcers which have typically healed well however, current episodes of his right middle and ring fingers have persisted despite management with neosporin application. There is no significant callous of his right index finger however, he noted the ulcer sometime in September after he had been in 0 degree weather with exposed hands for a long time. He reports pain in that digit but denies any discharge from the site. He has also been applying Neosporin without any significant improvement. Progress of Wound: Improving. - Physical Exam Vital Signs Temp Pulse Resp BP 97.5 F L 93 18 132/78 H 03/16/18 11:02 03/16/18 11:02 03/16/18 11:02 03/16/18 11:02 General: Alert, Oriented x3, Cooperative, No apparent distress HEENT: Atraumatic, Normocephalic Oral: Moist Mucosa Neck: Supple Lungs: Normal air movement Cardiovascular: Regular rate Abdomen: Non Tender Extremities: No cyanosis, Edema Skin: Ulcer/ Wound Wound Measurements and Assessment WC - Nurse 1 - General Ulcer Measurement Start: 02/16/18 13:28 Freq: Status: Active Protocol: Activity Type Activity Date Activity User E-Sign Co-Sign Detail Recorded Client Recorded Date Recorded By Document 03/16/18 11:02 RB [id number] 03/16/18 11:13 AMINTA 03/16/18 11:02 Wound Center Nurse 1 [Ulcer Assessment] #8- RT HEEL PLANTAR ASPECT -Combined with other wound No -Current Size (cm) - Length 1.5 -Current Size (cm) - Width 1.6 -Current Size (cm) - Depth 0.3 -Total Square Cm 2.40 -Photo Taken No -Tunneling No -Undermining/Tunneling No -Circular Undermining No -Classification - Thickness Full Thickness without Exposed Support Structure -Exudate Amt Small (1-33%) -Exudate Type Serosanguineous -Wound Margin Distinct, Outline Attached -Granulation Amt Large (67-100%) -Granulation Quality [place] -Slough/Fibrin Yes -Necrosis Amt Small (1-33%) -Necrotic Tissue Type Adherent Slough -Structure Exposed N/A -Texture (Mechelle-wound Skin Appearance) Callus -Moisture (Mechelle-wound Skin Appearance Assessed ) -Color (Mechelle-wound Skin Appearance) Assessed -Temperature (Mechelle-wound Skin No Abnormality Appearance) (Pt Warm) -Tenderness on Palpation (Mechelle-wound No Skin Appearance) -Ulcer Cleansing Rinsed/ Irrigated with Saline -Foul Odor after Cleansing No -Anesthetic Used 5% Lidocaine Gel 5-RIGHT INDEX FINGER -Combined with other wound No -Current Size (cm) - Length 0.1 -Current Size (cm) - Width 0.1 -Current Size (cm) - Depth 0.1 -Total Square Cm 0.01 -Photo Taken No -Epithelialization Small 1-33% -Tunneling No -Undermining/Tunneling No -Circular Undermining No -Classification - Thickness Full Thickness without Exposed Support Structure -Exudate Amt Small (1-33%) -Exudate Type Serosanguineous -Wound Margin Distinct, Outline Attached -Granulation Amt Large (67-100%) -Granulation Quality [place] -Slough/Fibrin Yes -Necrosis Amt Small (1-33%) -Necrotic Tissue Type Adherent Slough -Structure Exposed N/A -Texture (Mechelle-wound Skin Appearance) Assessed Callus -Moisture (Mechelle-wound Skin Appearance Assessed ) -Color (Mechelle-wound Skin Appearance) Assessed -Temperature ([place]helle-wound Skin No Abnormality Appearance) (Pt Warm) -Tenderness on Palpation (Mechelle-wound No Skin Appearance) -Ulcer Cleansing Rinsed/ Irrigated with Saline -Foul Odor after Cleansing No -Anesthetic Used 5% Lidocaine Gel [Edema Assessment] -Lower Limb Edema Present Yes -Right Calf (cm) 38 -Right Ankle (cm) 23.5 WC - Nurse 2 - General Ulcer CM Notes Start: 02/16/18 13:28 Freq: Status: Active Protocol: Activity Type Activity Date Activity User E-Sign Co-Sign Detail Recorded Client Recorded Date Recorded By Document 03/16/18 12:02 DV [id number] 03/16/18 12:05 DV 03/16/18 12:02 Wound Center Nurse 2 [Procedure/Treatment] #8- RT HEEL PLANTAR ASPECT -Time 12:03 -Correct Patient Yes -Correct Side, Site, Position Yes -Correct Procedure Yes -Procedure Performed Yes -Type of Procedure Debridement -Clinical Debridement Subcutaneous -Post Debridement Size (cm) - Length 0.3 -Post Debridement Size (cm) - Width 0.3 -Post Debridement Size (cm) - Depth 0.2 -Total Square Cm 0.09 -Wound/Ulcer Outcome Not Healed -Ulcer Cleansing Rinsed/ Irrigated with Saline -Foul Odor after Cleansing No -Bioengineered Tissue No -Bleeding Controlled with Pressure -Treatment Response Procedure Tolerated Well 5-RIGHT INDEX FINGER -Time 12:04 -Correct Patient Yes -Correct Side, Site, Position Yes -Correct Procedure Yes -Procedure Performed No -Post Debridement Size (cm) - Length 0.1 -Post Debridement Size (cm) - Width 0.1 -Post Debridement Size (cm) - Depth 0.1 -Total Square Cm 0.01 -Wound/Ulcer Outcome Not Healed -Ulcer Cleansing Rinsed/ Irrigated with Saline -Foul Odor after Cleansing No -Bioengineered Tissue No -Bleeding Controlled with NA [See Physician Procedure note for Specifics] Pain Scale: 0-10 Numeric [Pain] -Is Patient Pain Free? Yes Neurological: Cranial nerves II-XII grossly intact Psych/Mental Status: Normal Affect Debridement Note Post-Debridement Measurements/Treatment WC - Nurse 2 - General Ulcer CM Notes Start: 02/16/18 13:28 Freq: Status: Active Protocol: Activity Type Activity Date Activity User E-Sign Co-Sign Detail Recorded Client Recorded Date Recorded By Document 02/16/18 14:02 MW [id number] 02/16/18 14:17 MW Document 02/23/18 10:02 DV [id number] 02/23/18 10:09 DV Document 03/02/18 10:48 DV [id number] 03/02/18 10:53 DV Document 03/09/18 10:23 DV [id number] 03/09/18 10:29 DV Document 03/16/18 12:02 DV [id number] 03/16/18 12:05 DV 02/16/18 02/23/18 03/02/18 14:02 10:02 10:48 Wound Center Nurse 2 #8- RT HEEL PLANTAR ASPECT -Time 14:03 10:04 10:49 -Correct Patient Yes Yes Yes -Correct Side, Site, Position Yes Yes Yes -Correct Procedure Yes Yes Yes -Procedure Performed Yes Yes Yes -Type of Procedure Debridement Debridement Debridement -Clinical Debridement Subcutaneous Subcutaneous Subcutaneous -Post Debridement Size (cm) - Length 0.8 0.7 0.5 -Post Debridement Size (cm) - Width 0.7 0.5 0.4 -Post Debridement Size (cm) - Depth 0.4 0.3 0.2 -Total Square Cm 0.56 0.35 0.20 -Wound/Ulcer Outcome Not Healed Not Healed Not Healed -Ulcer Cleansing Rinsed/ Rinsed/ Rinsed/ Irrigated with Irrigated with Irrigated with Saline Saline Saline -Foul Odor after Cleansing No No No -Bioengineered Tissue No No No -Bleeding Controlled with Pressure Pressure Pressure Silver Nitrate -Treatment Response Procedure Procedure Procedure Tolerated Well Tolerated Well Tolerated Well 5-RIGHT INDEX FINGER -Time 14:03 10:07 10:49 -Correct Patient Yes Yes Yes -Correct Side, Site, Position Yes Yes Yes -Correct Procedure Yes Yes Yes -Procedure Performed Yes Yes Yes -Type of Procedure Debridement Debridement Debridement -Clinical Debridement Subcutaneous Subcutaneous Subcutaneous -Post Debridement Size (cm) - Length 0.3 0.4 0.3 -Post Debridement Size (cm) - Width 0.6 0.5 0.6 -Post Debridement Size (cm) - Depth 0.1 0.1 0.1 -Total Square Cm 0.18 0.20 0.18 -Wound/Ulcer Outcome Not Healed Not Healed Not Healed -Ulcer Cleansing Rinsed/ Rinsed/ Rinsed/ Irrigated with Irrigated with Irrigated with Saline Saline Saline -Foul Odor after Cleansing No No No -Bioengineered Tissue No No No -Bleeding Controlled with Pressure Pressure Pressure -Treatment Response Procedure Procedure Procedure Tolerated Well Tolerated Well Tolerated Well Pain Scale: 0-10 Numeric Is Patient Pain Free? Yes Yes Yes 03/09/18 03/16/18 10:23 12:02 Wound Center Nurse 2 #8- RT HEEL PLANTAR ASPECT -Time 10:24 12:03 -Correct Patient Yes Yes -Correct Side, Site, Position Yes Yes -Correct Procedure Yes Yes -Procedure Performed Yes Yes -Type of Procedure Debridement Debridement -Clinical Debridement Subcutaneous Subcutaneous -Post Debridement Size (cm) - Length 0.4 0.3 -Post Debridement Size (cm) - Width 0.3 0.3 -Post Debridement Size (cm) - Depth 0.2 0.2 -Total Square Cm 0.12 0.09 -Wound/Ulcer Outcome Not Healed Not Healed -Ulcer Cleansing Rinsed/ Rinsed/ Irrigated with Irrigated with Saline Saline -Foul Odor after Cleansing No No -Bioengineered Tissue No No -Bleeding Controlled with Pressure Pressure -Treatment Response Procedure Procedure Tolerated Well Tolerated Well 5-RIGHT INDEX FINGER -Time 10:24 12:04 -Correct Patient Yes Yes -Correct Side, Site, Position Yes Yes -Correct Procedure Yes Yes -Procedure Performed Yes No -Type of Procedure Debridement -Clinical Debridement Subcutaneous -Post Debridement Size (cm) - Length 0.4 0.1 -Post Debridement Size (cm) - Width 0.6 0.1 -Post Debridement Size (cm) - Depth 0.1 0.1 -Total Square Cm 0.24 0.01 -Wound/Ulcer Outcome Not Healed Not Healed -Ulcer Cleansing Rinsed/ Irrigated with Saline -Foul Odor after Cleansing No No -Bioengineered Tissue No No -Bleeding Controlled with Pressure NA -Treatment Response Procedure Tolerated Well Pain Scale: 0-10 Numeric Is Patient Pain Free? Yes Yes Wound debrided: Right heel Wound Grade/Stage: Stage II Type of Debridement: Excisional debridement Anesthesia Used: 4% Lidocaine Solution Depth: Down to and including healthy tissue, in the subcutaneous layer Percentage of wound debrided: 100 Instrument Used: 3mm curette Tissue Removed: Slough and devitalized tissue Severity: Fat Layer Exposed Amount of bleeding with debridement: Mild Bleeding Controlled with: Pressure Patient tolerated procedure well Assessment/Plan Clinical Impression(s) from Imaging Studies Ankle X-Ray 02/16/18 14:55 IMPRESSION: No fracture or dislocation. No definite radiographic findings of osteomyelitis. 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 No fracture or dislocation. No radiodense foreign body. No definite radiographic findings of osteomyelitis. Electronically Signed: Mazin De Leonfred, at 16:37 EDT Tel , Service support , [facility] [place] X-ray 02/16/18 15:00 IMPRESSION: No fracture or dislocation. No definite radiographic findings of osteomyelitis. Electronically Signed: Mazin De Leonfred, at 16:24 EDT Tel , Service support , Active Problems (Last Reviewed 11/01/17 @ 16:03 by Wilmer Cartwright) Skin ulcer of finger with fat layer exposed (Chronic) Right Index Finger Assessment: Right Middle and Ring finger ulcers with Fat layer exposed - Healed. Right Index finger ulcer possible due to vasoconstriction/raynaud's. Right Foot traumatic wound/ulcer with fat layer exposed Plan: Right index finger ulcer has improved significantly with off loading/ splinting. Debridement of right heel ulcer done as documented above, Procedure was well-tolerated. Continue Tegan with Adaptic over top and loose gauze dressing to both ulcers. 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 Continued offloading of both heel and index finger recommended. Increase protein intake encouraged. 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 This note was generated with [employer] software. It may contain incorrect words, spelling, and punctuation that were not noted in checking the note before signing.
== END 2018-03-16 23:59 ==
LOC: WC 10:30
PROVIDERS: Family Provider Student in an Organized Health Care Education/Training Program; PCP Student in an Organized Health Care Education/Training Program; Visit Provider Internal Medicine
DX: L97.512 Non-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ulcer of other part of right foot with fat layer exposed (principal); L98.492 Non-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ulcer of skin of other sites with fat layer exposed; G62.9 Polyneuropathy, unspecified; E11.42 Type 2 diabetes mellitus with diabetic polyneuropathy; Z79.4 Long term (current) use of insulin
CPT/HCPCS: 11042; 17250; 73610; 73630; 73650; 87070; 87075; 87077; 87186; 87205

== ENCOUNTER 2018-03-30 09:12 | Outpatient (RCR) | payer MEDICAID, SELFPAY ==
[2018-03-17 00:48] VITALS: BP 132/78; PULSE 93; RESP 18; TEMP 36.4
[2018-03-30 12:10] VITALS: BP 128/64; PULSE 101; RESP 18; TEMP 37
--- NOTE | 2018-03-30 12:54 | PCM.WC.PN ---
(1) Ulcer of right foot with fat layer exposed Status: Resolved Current Visit: Yes Code(s): L97.512 - Non-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ulcer of other part of right foot with fat layer exposed (2) Diabetic foot ulcer associated with type 2 diabetes mellitus Status: Acute Current Visit: Yes Code(s): E11.621 - Type 2 diabetes mellitus with foot ulcer; L97.509 - Non-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ulcer of other part of unspecified foot with unspecified severity (3) Skin ulcer of finger with fat layer exposed Status: Chronic Current Visit: Yes Code(s): L98.492 - Non-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ulcer of skin of other sites with fat layer exposed Comment: Right Index Finger (4) Type 2 diabetes mellitus with diabetic polyneuropathy Status: Chronic Current Visit: Yes Code(s): E11.42 - Type 2 diabetes mellitus with diabetic polyneuropathy Type of Wound Date of Service: 03/30/18 Chief Complaint: Right index finger ulcer and Right Foot Ulcer History of Wound: Mr. Espinoza is a 57yo with PMH of Diabetes currently seeing Dr Aparicio for lower extremity ulcers. I was asked to see him for chronic ulcers of his right index, middle and ring fingers. He is a [place] and has chronic upper extremity callus and has had ulcers which have typically healed well however, current episodes of his right middle and ring fingers have persisted despite management with neosporin application. There is no significant callous of his right index finger however, he noted the ulcer sometime in September after he had been in 0 degree weather with exposed hands for a long time. He reports pain in that digit but denies any discharge from the site. He has also been applying Neosporin without any significant improvement. Progress of Wound: Stable. - Physical Exam Vital Signs Temp Pulse Resp BP 98.6 F 101 H 18 128/64 H 03/30/18 12:10 03/30/18 12:10 03/30/18 12:10 03/30/18 12:10 General: Alert, Oriented x3, Cooperative, No apparent distress HEENT: Atraumatic Oral: Moist Mucosa Neck: Supple Lungs: Normal air movement Cardiovascular: Regular rate Abdomen: Non Tender Skin: Ulcer/ Wound Wound Measurements and Assessment WC - Nurse 1 - General Ulcer Measurement Start: 03/30/18 12:10 Freq: Status: Active Protocol: Activity Type Activity Date Activity User E-Sign Co-Sign Detail Recorded Client Recorded Date Recorded By Document 03/30/18 12:10 RB [id number] 03/30/18 12:15 RB 03/30/18 12:10 Wound Center Nurse 1 [Ulcer Assessment] #8- RT HEEL PLANTAR ASPECT -Combined with other wound No -Current Size (cm) - Length 0.5 -Current Size (cm) - Width 0.4 -Current Size (cm) - Depth 0.3 -Total Square Cm 0.20 -Photo Taken No -Tunneling No -Undermining/Tunneling No -Circular Undermining No -Classification - Thickness Full Thickness without Exposed Support Structure -Change in Wound Grade/Stage No Query Text:If change please identify the Stage/Grade in the comment (ie. S2 G3) -Exudate Amt Small (1-33%) -Exudate Type Serosanguineous -Wound Margin Distinct, Outline Attached -Granulation Amt Large (67-100%) -Granulation Quality [place] -Slough/Fibrin Yes -Necrosis Amt Small (1-33%) -Necrotic Tissue Type Adherent Slough -Structure Exposed N/A -Texture (Mechelle-wound Skin Appearance) Assessed Callus -Moisture (Mechelle-wound Skin Appearance Assessed ) -Color (M[place]helle-wound Skin Appearance) Assessed -Temperature ([place]helle-wound Skin No Abnormality Appearance) (Pt Warm) -Tenderness on Palpation (Mechelle-wound No Skin Appearance) -Ulcer Cleansing Rinsed/ Irrigated with Saline -Foul Odor after Cleansing No -Anesthetic Used 4% Lidocaine Solution 5-RIGHT INDEX FINGER -Combined with other wound No -Current Size (cm) - Length 0.1 -Current Size (cm) - Width 0.1 -Current Size (cm) - Depth 0.1 -Total Square Cm 0.01 -Photo Taken No -Tunneling No -Undermining/Tunneling No -Circular Undermining No -Classification - Thickness Full Thickness without Exposed Support Structure -Exudate Amt Small (1-33%) -Exudate Type Serosanguineous -Wound Margin Distinct, Outline Attached -Granulation Amt Large (67-100%) -Granulation Quality [place] -Slough/Fibrin Yes -Necrosis Amt Small (1-33%) -Necrotic Tissue Type Adherent Slough -Structure Exposed N/A -Texture (M[place]helle-wound Skin Appearance) Assessed -Moisture (M[place]helle-wound Skin Appearance Assessed ) -Color (Mechelle-wound Skin Appearance) Assessed -Temperature ([place]helle-wound Skin No Abnormality Appearance) (Pt Warm) -Tenderness on Palpation (Mechelle-wound No Skin Appearance) -Ulcer Cleansing Rinsed/ Irrigated with Saline -Foul Odor after Cleansing No -Anesthetic Used 4% Lidocaine Solution [Edema Assessment] -Lower Limb Edema Present Yes -Right Calf (cm) 38.1 -Right Ankle (cm) 24 WC - Nurse 2 - General Ulcer CM Notes Start: 03/30/18 12:10 Freq: Status: Active Protocol: Activity Type Activity Date Activity User E-Sign Co-Sign Detail Recorded Client Recorded Date Recorded By Document 03/30/18 12:45 DV [id number] 03/30/18 12:48 DV 03/30/18 12:45 Wound Center Nurse 2 [Procedure/Treatment] #8- RT HEEL PLANTAR ASPECT -Time 12:45 -Correct Patient Yes -Correct Side, Site, Position Yes -Correct Procedure Yes -Procedure Performed Yes -Type of Procedure Debridement -Clinical Debridement Subcutaneous -Post Debridement Size (cm) - Length 0.4 -Post Debridement Size (cm) - Width 0.3 -Post Debridement Size (cm) - Depth 0.2 -Total Square Cm 0.12 -Wound/Ulcer Outcome Not Healed -Ulcer Cleansing Rinsed/ Irrigated with Saline -Foul Odor after Cleansing No -Bioengineered Tissue No -Bleeding Controlled with Pressure -Treatment Response Procedure Tolerated Well 5-RIGHT INDEX FINGER -Time 12:45 -Correct Patient Yes -Procedure Performed No -Wound/Ulcer Outcome Not Healed -Ulcer Cleansing Rinsed/ Irrigated with Saline -Foul Odor after Cleansing No -Bioengineered Tissue No [See Physician Procedure note for Specifics] Pain Scale: 0-10 Numeric [Pain] -Is Patient Pain Free? Yes Neurological: Cranial nerves II-XII grossly intact Psych/Mental Status: Normal Affect Debridement Note Post-Debridement Measurements/Treatment WC - Nurse 2 - General Ulcer CM Notes Start: 03/30/18 12:10 Freq: Status: Active Protocol: Activity Type Activity Date Activity User E-Sign Co-Sign Detail Recorded Client Recorded Date Recorded By Document 03/30/18 12:45 DV [id number] 03/30/18 12:48 DV 03/30/18 12:45 Wound Center Nurse 2 #8- RT HEEL PLANTAR ASPECT -Time 12:45 -Correct Patient Yes -Correct Side, Site, Position Yes -Correct Procedure Yes -Procedure Performed Yes -Type of Procedure Debridement -Clinical Debridement Subcutaneous -Post Debridement Size (cm) - Length 0.4 -Post Debridement Size (cm) - Width 0.3 -Post Debridement Size (cm) - Depth 0.2 -Total Square Cm 0.12 -Wound/Ulcer Outcome Not Healed -Ulcer Cleansing Rinsed/ Irrigated with Saline -Foul Odor after Cleansing No -Bioengineered Tissue No -Bleeding Controlled with Pressure -Treatment Response Procedure Tolerated Well 5-RIGHT INDEX FINGER -Time 12:45 -Correct Patient Yes -Procedure Performed No -Wound/Ulcer Outcome Not Healed -Ulcer Cleansing Rinsed/ Irrigated with Saline -Foul Odor after Cleansing No -Bioengineered Tissue No Pain Scale: 0-10 Numeric Is Patient Pain Free? Yes Wound debrided: Right heel Wound Grade/Stage: Stage II Type of Debridement: Excisional debridement Anesthesia Used: 4% Lidocaine Solution Depth: Down to and including healthy tissue, in the subcutaneous layer Percentage of wound debrided: 100 Instrument Used: 7mm curette Tissue Removed: Callus and devitalized tissue Severity: Fat Layer Exposed Amount of bleeding with debridement: Mild Bleeding Controlled with: Pressure Patient tolerated procedure well Assessment/Plan Active Problems (Last Reviewed 11/01/17 @ 16:03 by Wilmer Cartwright) Skin ulcer of finger with fat layer exposed (Chronic) Right Index Finger Type 2 diabetes mellitus with diabetic polyneuropathy (Chronic) Diabetic foot ulcer associated with type 2 diabetes mellitus (Acute) Assessment: Right Middle and Ring finger ulcers with Fat layer exposed - Healed. Right Index finger ulcer possible due to vasoconstriction/raynaud's. Right Foot traumatic wound/ulcer with fat layer exposed Plan: Right index finger ulcer has improved significantly with off loading/splinting. Debridement of right heel ulcer done as documented above, Procedure was well-tolerated. Continue Tegan to right index finger. Tegan to right heel. Covered with guaze adn optifoam overtop. Wrap with 3M and leave in place for 1 week. Patient strongly encouraged to consistently off load. Continued offloading of both heel and index finger recommended. Increase protein intake encouraged. 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 This note was generated with [employer] software. It may contain incorrect words, spelling, and punctuation that were not noted in checking the note before signing.
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
== END 2018-04-15 23:59 ==
LOC: WC 09:12
PROVIDERS: Family Provider Student in an Organized Health Care Education/Training Program; PCP Student in an Organized Health Care Education/Training Program; Visit Provider Internal Medicine
DX: E11.621 Type 2 diabetes mellitus with foot ulcer (principal); L97.512 Non-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ulcer of other part of right foot with fat layer exposed; E11.42 Type 2 diabetes mellitus with diabetic polyneuropathy
CPT/HCPCS: 11042

== ENCOUNTER 2018-04-01 12:13 | Inpatient (IN) | payer MEDICAID, SELFPAY ==
[2018-04-01] VITALS (17 sets, daily range): BP systolic 98–137; BP diastolic 64–81; PULSE 97–120; RESP 18–26; TEMP 37–37.8; O2SAT 87–98; BMI 28.3; BMI 29.0; BMI 29.1
--- NOTE | 2018-04-01 12:37 | RAD_ITS ---
STUDY: X-RAY - UNILATERAL RIBS ( LEFT ) WITH CHEST REASON FOR EXAM: Male, 57 years old. Left-sided rib and chest pain. Patient has been coughing for a week. TECHNIQUE - RIBS: 4 view(s) of the ribs. TECHNIQUE - CHEST: Single PA view of the chest. COMPARISON: January 13, 2017. FINDINGS - RIBS: There is a mild deformity of the anterior left 11th and 10th ribs, possibly related to old fracture. Superimposed acute fracture cannot be excluded. FINDINGS - CHEST: Cardiac monitoring leads are present. The lungs are underexpanded. There is patchy bilateral basilar airspace consolidation and/or atelectasis. There is no demonstrated pleural abnormality. There is borderline cardiomegaly. Normal mediastinum and kaci. There is prominence of the pulmonary hilar arteries with peripheral pulmonary vascular congestion. Normal visualized aortic arch and descending thoracic aorta. Normal visualized thoracic spine. Normal visualized ribs, clavicles, and shoulders. There is no demonstrated abnormality of the visualized soft tissue structures of the upper abdomen. RAD/Ribs Uni Min 3V w/PA Chest IMPRESSION: RIBS: Possible sequela of old anterior left-sided rib fractures. Acute fracture in these areas cannot be excluded. CHEST: Patchy bilateral basilar airspace disease and/or atelectasis. Electronically Signed: Aubrie Chatman MD at 13:47 EDT , Service support ,
--- NOTE | 2018-04-01 12:37 | RAD_ITS ---
STUDY: X-RAY - THORACIC SPINE REASON FOR EXAM: Male, 57 years old. Left-sided back pain. TECHNIQUE: 3 view(s) of the thoracic spine were obtained. There is limited due to a combination of these radiographs. COMPARISON: None. FINDINGS: There is an increase in the normal thoracic kyphosis. There is no substantial scoliosis. There is multilevel endplate spondylosis of the thoracic vertebrae. Normal disc space heights. The soft tissue structures are unremarkable. RAD/Thoracic Spine 3 Views IMPRESSION: Multilevel thoracic spondylosis. Electronically Signed: Aubrie Chatman MD at 13:42 EDT , Service support ,
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
[2018-04-01] MEDS: Ketorolac 30 MG/ML Syringe IV (13:20)
[2018-04-01] MEDS: Orphenadrine 60 MG/2 ML Ampul IM (13:20)
--- NOTE | 2018-04-01 14:02 | ED.DEP ---
ED Disposition - Plan for ED Patient: Chief Complaint: Back Instructions: Self-Care for Strains and Sprains Referrals: Avery Escalante DO [Primary Care Provider] -
--- NOTE | 2018-04-01 14:14 | EKG12_ITS ---
Test Reason : BACK PAIN Blood Pressure : / mmHG Vent. Rate : 099 BPM Atrial Rate : 099 BPM P-R Int : 166 ms QRS Dur : 088 ms QT Int : 334 ms P-R-T Axes : 053 -08 -12 degrees QTc Int : 428 ms Normal sinus rhythm Septal infarct , age undetermined ST & T wave abnormality, consider lateral ischemia Abnormal ECG Confirmed by RAINER BASHIR, ANGEL ([id number]), writer editor TIERA NEWELL ([id number]) on 04/05/2018 3:41:30 PM Referred By: Agustín Emanuel Confirmed By:ANGEL SPEAR MD
[2018-04-01] MEDS: Ipratropium/Albuterol Sulfate 3 ML AMPUL.NEB INHALATION (14:30)
[2018-04-01 14:45] LABS: Absolute Neutrophil Count 15.3 X10^3/uL (2.0-7.7); Basophil# 0.05 X10^3/uL; Basophil% 0.3 % (0-1); Differential Indicated SCAN CRITERIA MET; Eosinophil# 0.03 X10^3/uL; Eosinophils% 0.2 % (0-5); Hematocrit 36.4 % (40-54); Hemoglobin 11.8 g/dl (13.0-16.5); Lymphocyte % 4.8 % (19-41); Mean Corp Hgb Conc 32.4 g/gl (32-36); Mean Corpuscular Hgb 32.4 pg (27.0-32.0); Mean Platelet Vol. 10.9 fl (6.2-12.0); Monocyte% 13.2 % (0-10); Neutrophil # 15.28 X10^3/uL (2.7-7.7); Neutrophil % 80.7 % (47-70); POSITIVE COUNT NO; POSITIVE DIFFERENTIAL YES; POSITIVE MORPHOLOGY NO; Platelet Count 250 K/mm3 (150-450); RBC Distribution Width CV 13.3 % (11.6-14.6); RBC Distribution Width SD 47.7 fl (35.1-43.9); Red Blood Count 3.64 M/mm3 (4.6-6.2); White Blood Count 18.9 K/mm3 (4.4-11.0)
[2018-04-01 15:33] LABS: Anion Gap 8 (5-15); BUN 25 mg/dL (7-18); BUN/Creat Ratio 22.9 RATIO (10-20); Calcium,Total 8.8 mg/dL (8.5-10.1); Chloride 105 mmol/L (98-107); Creatinine, Serum 1.09 mg/dL (0.70-1.30); EST Glomerular Filtration Rate 74 mL/min (>60); Est Glom Filt Rate - Afr Amer 90 mL/min (>60); Estimated Creatinine Clearance 78.13 ml/min; Glucose 193 mg/dL (74-106); Potassium 4.4 mmol/L (3.5-5.1); Sodium Level 137 mmol/L (136-145)
--- NOTE | 2018-04-01 15:49 | CT_ITS ---
STUDY: CTA CHEST REASON FOR EXAM: Male, 57 years old. Internus of breath. RADIATION DOSAGE (If Supplied By Facility): CTDIvol = ( 13.23 ) mGy, DLP = ( 724.80 ) mGycm TECHNIQUE: The examination was performed with the intravenous administration of 100 ml of Isovue 370 contrast material. Post-processing of the angiographic images was performed, with multiplanar reformation and 3D reconstruction. Individualized dose optimization techniques were used for this CT. COMPARISON: Chest radiograph dated March 31, 2018. FINDINGS: Cardiac monitoring leads are present. Normal enhancement of the main pulmonary artery and right and left pulmonary arteries. There is limited enhancement of the bilateral peripheral pulmonary arteries. There is no demonstrated pulmonary embolism. There is prominence of the main pulmonary arteries and peripheral pulmonary arteries. Normal thoracic aorta and visualized great vessels. There is no demonstrated aortic dissection. There is borderline cardiac cardiomegaly. There are prominent right paratracheal lymph nodes suggesting lymphadenopathy. There is subcarinal lymphadenopathy with a андрей mass measuring 7.9 x 3.3 x 1.8 cm. There are prominent bilateral hilar lymph nodes. Normal visualized trachea and bronchi. The lungs are under expanded. There are prominent bronchovascular markings of both lungs. There is heterogeneous groundglass attenuation suggesting pulmonary congestion. There is interstitial thickening in both lungs. There is bilateral basilar airspace disease and atelectasis. There are bilateral pleural effusions. Normal chest wall structures. Normal osseous structures. There is a small hiatal hernia CT/CTA Chest W/WO Contrast IMPRESSION: 1. No CTA demonstrated pulmonary embolism or arterial dissection. 2. Pulmonary edema with pleural effusions. 3. Nonspecific mediastinal lymphadenopathy. Electronically Signed: Aubrie Chatman MD at 16:54 EDT , Service support ,
[2018-04-01 16:06] LABS: BNP,B-Type NATRIURETIC PEPTIDE 564.5 pg/mL (0-100)
[2018-04-01] MEDS: Aspirin 81 MG TAB.CHEW 324 MG PO (16:16)
[2018-04-01 16:24] LABS: International Normalized Ratio 1.2; Prothrombin Time (Protime)PT. 14.9 SECONDS (11.7-14.9)
[2018-04-01 16:25] LABS: Partial Thromboplast Time 31.7 Seconds (24.1-36.2)
--- NOTE | 2018-04-01 16:30 | PCM.HP.STD ---
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 (3) Hypertension Status: Chronic Qualifiers: Hypertension type: essential hypertension Qualified Code(s): I10 - Essential (primary) hypertension (4) CHF (congestive heart failure) Status: Acute Qualifiers: Heart failure type: unspecified Heart failure chronicity: acute Qualified Code(s): I50.9 - Heart failure, unspecified History of Present Illness Date of Admission: 04/01/18 Chief Complaint: SOB, chest pain The patient is a 57 year old M past medical history of Raynaoud disease, PAD, PVD, status post amputation of the right toe, recent history of frostbite, history of chronic wound follows up in the wound center, comes in with complaints of shortness of breath ongoing for the past 2 days. Patient denied any dizziness or palpitation but admits to some chest discomfort and feels like he has broken a rib. Denies any palpitations. Complains of some chills but no fever. He also complains of diarrhea that is actually like every 30 minutes to 1 hour every day. Denied any history of cardiac conditions or stents Vitals in the ED with a significant for heart rate of 109, temperature 98.6, respiratory rate of 20, blood pressure 117, saturating 98% on room air. As patient was ambulating, he dropped his pulse oximetry to 87% on room air. Workup including CTA for PE was negative for acute PE but showed pulmonary congestion and pleural effusions. Admitting blood work is significant for normal BMP, but admitting troponins is elevated at 6.020, no EKG changes. BNPep is 564 Past Medical History Past Medical History (Chronic Problems): Chronic Problems (Last Reviewed 11/01/17 @ 16:03 by Wilmer Cartwright) Other specified peripheral vascular diseases (Chronic) Xerosis of skin (Chronic) Non-compliance (Chronic) Skin ulcer of finger with fat layer exposed (Chronic) Right Index Finger 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) Hypertension (Chronic) Neuropathy (Chronic) Most likely severe diabetic neuropathy Workup [facility] Cerebrovascular disease (Chronic) Right thalamic stroke Medical History: Medical History (Last Reviewed 11/01/17 @ 16:03 by Wilmer Cartwright) Diabetes E11.9 Environmental allergies Z91.09 H/O stroke associated with blood clotting tendency Z86.73 Allergies atorvastatin Adverse Reaction (Verified 04/01/18 12:16) Unknown metformin Adverse Reaction (Verified 04/01/18 12:16) Diarrhea Home Medications: Ambulatory Orders Medication Instructions Recorded Tizanidine HCl [Zanaflex] 4 mg PO 4X/DAY PRN PRN 11/07/14 Ammonium Lactate [Amlactin] 57 gm TP PRN PRN 10/04/17 Baclofen 60 mg PO DAILY 10/04/17 Celecoxib [Celebrex] 200 mg PO DAILY 10/04/17 Cholecalciferol (Vitamin D3) 5,000 unit PO DAILY 10/04/17 [Vitamin D3] Levomefolate/B6/B12/Algal Oil 1 each PO DAILY 10/04/17 [Metanx Capsule] Nortriptyline HCl 50 mg PO QHS 10/04/17 Aspirin 325 mg PO DAILY@0800 10/21/17 Amlodipine [Norvasc] 5 mg PO DAILY 04/01/18 Biotin 1 mg PO DAILY 04/01/18 Cyanocobalamin (Vitamin B-12) 1,000 mcg PO 04/01/18 [Vitamin B-12] Desonide 0.05% [Desowen 0.05% 1 applic TOPICAL BID 04/01/18 Cream] Diflorasone Diacetate [Psorcon] 1 applicatio TP BID PRN 04/01/18 Gabapentin [Neurontin] 800 mg PO TIDCM 04/01/18 Insulin Glargine,Hum.rec.anlog 20 unit SQ QHS 04/01/18 [Basaglar Kwikpen U-100] Insulin Lispro [Humalog KwikPen] See Protocol SQ TIDCM 04/01/18 Ketoconazole [Nizoral] 1 applic TOPICAL DAILY 04/01/18 Lisinopril [Zestril] 30 mg PO DAILY 04/01/18 Magnesium 250 mg PO DAILY 04/01/18 Methocarbamol [Robaxin] 500 mg PO TID PRN 04/01/18 Urea 226.8 gm TP TID 04/01/18 Surgical History: - - Toe amputations RLE Psychiatric History: No pertinent psych hx Lives: Alone Smoking Status: Never smoker - *Family History Maternal Family History: Family History (Last Reviewed 11/01/17 @ 16:03 by Wilmer Cartwright) Other Arthritis Hypertension History Items: Diabetes Paternal Family History: Family History (Last Reviewed 11/01/17 @ 16:03 by Wilmer Cartwright) Other Arthritis Hypertension History Items: Diabetes Review of Systems Constitutional: Reports: Anorexia, Weakness. Denies: Chills, Fever, Weight Change Eyes: Denies: Blurred vision, Cataracts, Conjunctivae Inflammation, Double vision HEENT: Denies: Difficulty Hearing, Difficulty Swallowing, Head Aches, Sinus Congestion, Sinus Drainage Cardiovascular: Reports: Chest Pain, Chest Pressure, Edema, Orthopnea. Denies: Chest Tightness, Palpitations, Paroxysmal Noc. Dyspnea Respiratory: Reports: Shortness of Breath, Shortness of breath at rest, Shortness of breath upon exertion. Denies: Cough, Hemoptysis, Pleuritic Pain, Sputum production Gastrointestinal: Denies: Abdominal Pain, Constipation, Hematemesis, Nausea, Vomiting Genitourinary: Denies: Dysuria, Frequency, Incontinence Musculoskeletal: Denies: Arm Pain, Back Pain, Joint Pain, Joint stiffness, Joint swelling, Joint Tenderness Skin: Denies: Rash, Wounds Neurological: Denies: Numbness, Tingling, Focal weakness Psychiatric: Denies: Anxiety, Depression, Homicidal Ideations, Suicidal Ideations Hematologic/ Lymphatic: Denies: Easy Bruising, Easy Bleeding VTE Information - Inpt Only VTE Present on Admission: No VTE Pharm Prophylaxis ordered?: Yes Patient Problems: Active and Suspected Problems (Last Reviewed 11/01/17 @ 16:03 by Wilmer Cartwright) NSTEMI (non-ST elevated myocardial infarction) (Acute) NSTEMI (non-ST elevated myocardial infarction) (Acute) CHF (congestive heart failure) (Acute) Diabetic foot ulcer associated with type 2 diabetes mellitus (Acute) - Physical Exam General: Alert, Oriented x3, Cooperative, No apparent distress HEENT: Atraumatic, PERRLA, EOMI, Normocephalic Oral: Moist Mucosa - He is comfortable, slightly slow in responding to answers Neck: Supple Lungs: Normal air movement, Diminished Cardiovascular: Regular rate, Regular Rhythm - Managed at the lower lung zones, Normal S1, Normal S2, No murmurs, Tachycardic Abdomen: Bowel Sounds Present, Soft, Non Tender, Non-Distended, No Hepato-splenomegaly Extremities: Edema - Right first digit amputation, lower extremities wrapped in tight 3M wraps Skin: No rashes, No breakdown Musculoskeletal: No Tenderness to Palpation of Joints or Extremities Lymphatic: No Cervical, Supraclavicular, or Inguinal Adenopathy Neurological: Cranial nerves II-XII grossly intact Psych/Mental Status: Normal Affect, Appropriate Vital Signs Temp Pulse Resp BP Pulse Ox 98.6 F 103 H 23 H 120/75 94 04/01/18 16:19 04/01/18 16:19 04/01/18 16:19 04/01/18 16:19 04/01/18 16:19 Assessment/Plan All Active Problems (Last Reviewed 11/01/17 @ 16:03 by Wilmer Cartwright) Ulcer of right foot with fat layer exposed (Resolved) Chronic ulcer of left foot with fat layer exposed (Resolved) NSTEMI (non-ST elevated myocardial infarction) (Acute) NSTEMI (non-ST elevated myocardial infarction) (Acute) CHF (congestive heart failure) (Acute) Thoracic neuritis (Acute) Segmental and somatic dysfunction of lumbar region (Acute) Segmental and somatic dysfunction of cervical region (Acute) Segmental and somatic dysfunction of thoracic region (Acute) Cellulitis lft foot failed outpatient tx (Acute) Diabetic foot ulcer associated with type 2 diabetes mellitus (Acute) Acute left-sided weakness (Resolved) Left sided numbness (Resolved) Muscle wasting disorder (Resolved) 57 year old M past medical history of Raynaoud disease, PAD, PVD, status post amputation of the right toe, recent history of frostbite, history of chronic wound follows up in the wound center, comes in with complaints of shortness of breath ongoing for the past 2 days. 1. Acute NSTEMI likely secondary to acute CHF, admitting troponin is 6.020, ST segment depression in the lateral leads, he received aspirin and Brilinta in the ED Plan: Admit to PCU, monitor on telemetry, therapeutic Lovenox, beta-kurt, continue on aspirin, Brilinta, patient will get a cardiac cath either tomorrow or Tuesday, continue to monitor. 2. Acute respiratory insufficiency secondary to acute CHF, continue on oxygen, continue treatment for CHF, renal for SPO2 more than 94% 3. Acute CHF, questionable EF, new onset, last 2D echo was 2013, that was normal, will start on Lasix, beta-kurt, cardiology consulted, 2D echo, check I's and O's, fluid restriction, daily weights 4. History of PAD/PVD status post right acute amputation, continue on antiplatelet therapy 5. Type II DM, on insulin, continue home medications 6. Panic pain syndrome, continue on home regimen 7. Leukocytosis, likely reactive, will continue to monitor 8. Right lower extremity wound, per wound notes in the outpatient, patient is to have dressing on for about a week, will get wound nurse consulted 9. DT prophylaxis- patient is on Lovenox subcu therapeutic dosing Code Visit Inpatient E&M: 06590 Init Hosp L3
--- NOTE | 2018-04-01 16:39 | HP.PCM_ITS ---
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 (3) Hypertension Status: Chronic Qualifiers: Hypertension type: essential hypertension Qualified Code(s): I10 - Essential (primary) hypertension (4) CHF (congestive heart failure) Status: Acute Qualifiers: Heart failure type: unspecified Heart failure chronicity: acute Qualified Code(s): I50.9 - Heart failure, unspecified History of Present Illness Date of Admission: 04/01/18 Chief Complaint: SOB, chest pain The patient is a 57 year old M past medical history of Raynaoud disease, PAD, PVD, status post amputation of the right toe, recent history of frostbite, history of chronic wound follows up in the wound center, comes in with complaints of shortness of breath ongoing for the past 2 days. Patient denied any dizziness or palpitation but admits to some chest discomfort and feels like he has broken a rib. Denies any palpitations. Complains of some chills but no fever. He also complains of diarrhea that is actually like every 30 minutes to 1 hour every day. Denied any history of cardiac conditions or stents Vitals in the ED with a significant for heart rate of 109, temperature 98.6, respiratory rate of 20, blood pressure 117, saturating 98% on room air. As patient was ambulating, he dropped his pulse oximetry to 87% on room air. Workup including CTA for PE was negative for acute PE but showed pulmonary congestion and pleural effusions. Admitting blood work is significant for normal BMP, but admitting troponins is elevated at 6.020, no EKG changes. BNPep is 564 Past Medical History Past Medical History (Chronic Problems): Chronic Problems (Last Reviewed 11/01/17 @ 16:03 by Wilmer Cartwright) Other specified peripheral vascular diseases (Chronic) Xerosis of skin (Chronic) Non-compliance (Chronic) Skin ulcer of finger with fat layer exposed (Chronic) Right Index Finger 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) Hypertension (Chronic) Neuropathy (Chronic) Most likely severe diabetic neuropathy Workup [facility] Cerebrovascular disease (Chronic) Right thalamic stroke Medical History: Medical History (Last Reviewed 11/01/17 @ 16:03 by Wilmer Cartwright) Diabetes E11.9 Environmental allergies Z91.09 H/O stroke associated with blood clotting tendency Z86.73 Allergies atorvastatin Adverse Reaction (Verified 04/01/18 12:16) Unknown metformin Adverse Reaction (Verified 04/01/18 12:16) Diarrhea Home Medications: Ambulatory Orders Medication Instructions Recorded Tizanidine HCl [Zanaflex] 4 mg PO 4X/DAY PRN PRN 11/07/14 Ammonium Lactate [Amlactin] 57 gm TP PRN PRN 10/04/17 Baclofen 60 mg PO DAILY 10/04/17 Celecoxib [Celebrex] 200 mg PO DAILY 10/04/17 Cholecalciferol (Vitamin D3) 5,000 unit PO DAILY 10/04/17 [Vitamin D3] Levomefolate/B6/B12/Algal Oil 1 each PO DAILY 10/04/17 [Metanx Capsule] Nortriptyline HCl 50 mg PO QHS 10/04/17 Aspirin 325 mg PO DAILY@0800 10/21/17 Amlodipine [Norvasc] 5 mg PO DAILY 04/01/18 Biotin 1 mg PO DAILY 04/01/18 Cyanocobalamin (Vitamin B-12) 1,000 mcg PO 04/01/18 [Vitamin B-12] Desonide 0.05% [Desowen 0.05% 1 applic TOPICAL BID 04/01/18 Cream] Diflorasone Diacetate [Psorcon] 1 applicatio TP BID PRN 04/01/18 Gabapentin [Neurontin] 800 mg PO TIDCM 04/01/18 Insulin Glargine,Hum.rec.anlog 20 unit SQ QHS 04/01/18 [Basaglar Kwikpen U-100] Insulin Lispro [Humalog KwikPen] See Protocol SQ TIDCM 04/01/18 Ketoconazole [Nizoral] 1 applic TOPICAL DAILY 04/01/18 Lisinopril [Zestril] 30 mg PO DAILY 04/01/18 Magnesium 250 mg PO DAILY 04/01/18 Methocarbamol [Robaxin] 500 mg PO TID PRN 04/01/18 Urea 226.8 gm TP TID 04/01/18 Surgical History: - - Toe amputations RLE Psychiatric History: No pertinent psych hx Lives: Alone Smoking Status: Never smoker - *Family History Maternal Family History: Family History (Last Reviewed 11/01/17 @ 16:03 by Wilmer Cartwright) Other Arthritis Hypertension History Items: Diabetes Paternal Family History: Family History (Last Reviewed 11/01/17 @ 16:03 by Wilmer Cartwright) Other Arthritis Hypertension History Items: Diabetes Review of Systems Constitutional: Reports: Anorexia, Weakness. Denies: Chills, Fever, Weight Change Eyes: Denies: Blurred vision, Cataracts, Conjunctivae Inflammation, Double vision HEENT: Denies: Difficulty Hearing, Difficulty Swallowing, Head Aches, Sinus Congestion, Sinus Drainage Cardiovascular: Reports: Chest Pain, Chest Pressure, Edema, Orthopnea. Denies: Chest Tightness, Palpitations, Paroxysmal Noc. Dyspnea Respiratory: Reports: Shortness of Breath, Shortness of breath at rest, Shortness of breath upon exertion. Denies: Cough, Hemoptysis, Pleuritic Pain, Sputum production Gastrointestinal: Denies: Abdominal Pain, Constipation, Hematemesis, Nausea, Vomiting Genitourinary: Denies: Dysuria, Frequency, Incontinence Musculoskeletal: Denies: Arm Pain, Back Pain, Joint Pain, Joint stiffness, Joint swelling, Joint Tenderness Skin: Denies: Rash, Wounds Neurological: Denies: Numbness, Tingling, Focal weakness Psychiatric: Denies: Anxiety, Depression, Homicidal Ideations, Suicidal Ideations Hematologic/ Lymphatic: Denies: Easy Bruising, Easy Bleeding VTE Information - Inpt Only VTE Present on Admission: No VTE Pharm Prophylaxis ordered?: Yes Patient Problems: Active and Suspected Problems (Last Reviewed 11/01/17 @ 16:03 by Wilmer Cartwright) NSTEMI (non-ST elevated myocardial infarction) (Acute) NSTEMI (non-ST elevated myocardial infarction) (Acute) CHF (congestive heart failure) (Acute) Diabetic foot ulcer associated with type 2 diabetes mellitus (Acute) - Physical Exam General: Alert, Oriented x3, Cooperative, No apparent distress HEENT: Atraumatic, PERRLA, EOMI, Normocephalic Oral: Moist Mucosa - He is comfortable, slightly slow in responding to answers Neck: Supple Lungs: Normal air movement, Diminished Cardiovascular: Regular rate, Regular Rhythm - Managed at the lower lung zones, Normal S1, Normal S2, No murmurs, Tachycardic Abdomen: Bowel Sounds Present, Soft, Non Tender, Non-Distended, No Hepato- splenomegaly Extremities: Edema - Right first digit amputation, lower extremities wrapped in tight 3M wraps Skin: No rashes, No breakdown Musculoskeletal: No Tenderness to Palpation of Joints or Extremities Lymphatic: No Cervical, Supraclavicular, or Inguinal Adenopathy Neurological: Cranial nerves II-XII grossly intact Psych/Mental Status: Normal Affect, Appropriate Vital Signs Temp Pulse Resp BP Pulse Ox 98.6 F 103 H 23 H 120/75 94 04/01/18 16:19 04/01/18 16:19 04/01/18 16:19 04/01/18 16:19 04/01/18 16:19 Assessment/Plan All Active Problems (Last Reviewed 11/01/17 @ 16:03 by Wilmer Cartwright) Ulcer of right foot with fat layer exposed (Resolved) Chronic ulcer of left foot with fat layer exposed (Resolved) NSTEMI (non-ST elevated myocardial infarction) (Acute) NSTEMI (non-ST elevated myocardial infarction) (Acute) CHF (congestive heart failure) (Acute) Thoracic neuritis (Acute) Segmental and somatic dysfunction of lumbar region (Acute) Segmental and somatic dysfunction of cervical region (Acute) Segmental and somatic dysfunction of thoracic region (Acute) Cellulitis lft foot failed outpatient tx (Acute) Diabetic foot ulcer associated with type 2 diabetes mellitus (Acute) Acute left-sided weakness (Resolved) Left sided numbness (Resolved) Muscle wasting disorder (Resolved) 57 year old M past medical history of Raynaoud disease, PAD, PVD, status post amputation of the right toe, recent history of frostbite, history of chronic wound follows up in the wound center, comes in with complaints of shortness of breath ongoing for the past 2 days. 1. Acute NSTEMI likely secondary to acute CHF, admitting troponin is 6.020, ST segment depression in the lateral leads, he received aspirin and Brilinta in the ED Plan: Admit to PCU, monitor on telemetry, therapeutic Lovenox, beta- kurt, continue on aspirin, Brilinta, patient will get a cardiac cath either tomorrow or Tuesday, continue to monitor. 2. Acute respiratory insufficiency secondary to acute CHF, continue on oxygen, continue treatment for CHF, renal for SPO2 more than 94% 3. Acute CHF, questionable EF, new onset, last 2D echo was 2013, that was normal, will start on Lasix, beta-kurt, cardiology consulted, 2D echo, check I's and O's, fluid restriction, daily weights 4. History of PAD/PVD status post right acute amputation, continue on antiplatelet therapy 5. Type II DM, on insulin, continue home medications 6. Panic pain syndrome, continue on home regimen 7. Leukocytosis, likely reactive, will continue to monitor 8. Right lower extremity wound, per wound notes in the outpatient, patient is to have dressing on for about a week, will get wound nurse consulted 9. DT prophylaxis- patient is on Lovenox subcu therapeutic dosing Code Visit Inpatient E&M: 42647 Init Hosp L3
--- NOTE | 2018-04-01 16:51 | PCM.CONS.C ---
Problem List (1) NSTEMI (non-ST elevated myocardial infarction) Status: Acute (2) Hypertension Status: Chronic Qualifiers: Hypertension type: essential hypertension Qualified Code(s): I10 - Essential (primary) hypertension (3) Diabetes mellitus type 2 with complications Status: Chronic Reason for Consult Date of Consultation: 04/01/18 History of Present Illness: The patient is a 57 year old white male with a past medical history which is included hypertension and diabetes mellitus with associated complications who is referred for evaluation of chest discomfort, back discomfort, shortness of breath/dyspnea, and subsequent findings of an abnormal troponin I level compatible with an acute non-ST segment elevation [place]. The patient stated that recently he has felt more short of breath and dyspneic, has been coughing, felt he may have dislocated a rib leading to chest and back discomfort, and presented to the [facility] emergency department for concerns of possible pneumonia. During his evaluation he was found to have an abnormal troponin I level. His ECG demonstrated sinus rhythm with the appearance of a septal [place] of indeterminate age and nonspecific ST segment changes potentially compatible with myocardial ischemia in the lateral distribution. A chest x-ray was performed which suggested potential atelectasis versus patchy airspace disease in the basilar areas. A chest CTA scan has been performed which based upon preliminary evaluation by the [facility] emergency department staff was considered to be negative for thromboembolic disease/PE. The patient denies any previous documented cardiovascular history. He has denied any orthopnea or PND. He has had right lower extremity injury recently which is being cared for by the [facility] wound center. He denies any near-syncope or syncope although he states he does get lightheaded and dizzy at times. He does claim to have recent diarrhea. He states he has been without any antibiotics for approximately 1 month. [] Past Medical History Allergies/Adverse Reactions: Allergies atorvastatin Adverse Reaction (Verified 04/01/18 12:16) Unknown metformin Adverse Reaction (Verified 04/01/18 12:16) Diarrhea Home Medications: Ambulatory Orders Medication Instructions Recorded Tizanidine HCl [Zanaflex] 4 mg PO 4X/DAY PRN PRN 11/07/14 Ammonium Lactate [Amlactin] 57 gm TP PRN PRN 10/04/17 Baclofen 60 mg PO DAILY 10/04/17 Celecoxib [Celebrex] 200 mg PO DAILY 10/04/17 Cholecalciferol (Vitamin D3) 5,000 unit PO DAILY 10/04/17 [Vitamin D3] Levomefolate/B6/B12/Algal Oil 1 each PO DAILY 10/04/17 [Metanx Capsule] Nortriptyline HCl 50 mg PO QHS 10/04/17 Aspirin 325 mg PO DAILY@0800 10/21/17 Amlodipine [Norvasc] 5 mg PO DAILY 04/01/18 Biotin 1 mg PO DAILY 04/01/18 Cyanocobalamin (Vitamin B-12) 1,000 mcg PO 04/01/18 [Vitamin B-12] Desonide 0.05% [Desowen 0.05% 1 applic TOPICAL BID 04/01/18 Cream] Diflorasone Diacetate [Psorcon] 1 applicatio TP BID PRN 04/01/18 Gabapentin [Neurontin] 800 mg PO TIDCM 04/01/18 Insulin Glargine,Hum.rec.anlog 20 unit SQ QHS 04/01/18 [Basaglar Kwikpen U-100] Insulin Lispro [Humalog KwikPen] See Protocol SQ TIDCM 04/01/18 Ketoconazole [Nizoral] 1 applic TOPICAL DAILY 04/01/18 Lisinopril [Zestril] 30 mg PO DAILY 04/01/18 Magnesium 250 mg PO DAILY 04/01/18 Methocarbamol [Robaxin] 500 mg PO TID PRN 04/01/18 Urea 226.8 gm TP TID 04/01/18 Past Medical History (Chronic Problems): Chronic Problems (Last Reviewed 11/01/17 @ 16:03 by Wilmer Cartwright) Other specified peripheral vascular diseases (Chronic) Xerosis of skin (Chronic) Non-compliance (Chronic) Skin ulcer of finger with fat layer exposed (Chronic) Right Index Finger 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) Hypertension (Chronic) Neuropathy (Chronic) Most likely severe diabetic neuropathy [facility] Cerebrovascular disease (Chronic) Right thalamic stroke Surgical History: - - Toe amputations RLE - *Family History Maternal Family History: Family History (Last Reviewed 11/01/17 @ 16:03 by Wilmer Cartwright) Other Arthritis Hypertension History Items: Diabetes Paternal Family History: Family History (Last Reviewed 11/01/17 @ 16:03 by Wilmer Cartwright) Other Arthritis Hypertension History Items: Diabetes Smoking Status: Never smoker Alcohol: None Drugs: None Review of Systems - Review of Systems General: Reports: Weakness. Denies: Fever, Fatigue, Night Sweats Cardiovascular: Reports: Chest Discomfort, Shortness of Breath, Dizziness. Denies: Orthopnea, PND, Peripheral Edema, Palpitations, Lightheadedness, Near Syncope, Syncope Respiratory: Reports: Shortness of Breath. Denies: Sputum Production, Hemoptysis Gastrointestinal: Reports: Diarrhea. Denies: Hematemesis, Hematochezia, Melena Genitourinary: Denies: Dysuria, Hematuria Subjectve: This is a 57-year-old white male who appears to be resting comfortably at the moment in no acute distress. Objective: Vital Signs Temp Pulse Resp BP Pulse Ox 98.6 F 102 H 18 120/75 93 04/01/18 16:19 04/01/18 16:37 04/01/18 16:37 04/01/18 16:37 04/01/18 16:37 Oxygen Flow Rate (L/min) 2 Oxygen Delivery Method Nasal Cannula General: Awake, Alert, Oriented x 3, Cooperative, No Acute Distress HEENT: Atraumatic, Normocephalic, PERRL, EOMI, Sclera Non Icteric Oral: Moist Mucosa Neck: Supple, Good ROM, No JVD Lungs: Diminished Jovany Bases Cardiovascular: Regular Rhythm, Normal S1, Normal S2 Vascular: No Carotid Bruits Abdomen: Bowel Sounds Present, Soft, Non Tender Extremities: - - Right lower extremity/right leg/right foot: NA Suman-type wrap Rhythm: Sinus rhythm EKG: As noted above CXR: As noted above: Please see official report Chest CT Scan: Please see official report Assessment/Plan 1. Acute non-ST segment elevation [place] The patient presents with a variety of symptoms. He has been found to have an abnormal troponin I level suggestive of an acute non-ST segment elevation [place]. There would be concerns based upon his multiple cardiovascular risk that this could be related to underlying CAD and a type I event versus being related to a non-CAD process and a type II supply demand mismatch event. However, he is undergoing noncardiovascular evaluation as well with a chest CT scan to evaluate for thromboembolic disease. The preliminary report is negative, however, the official report is pending. At the present time the patient is being brought into the hospital. He will be monitored. His cardiac enzymes will be followed as well as his ECG. He may need an echocardiogram to assess his left ventricular wall motion and systolic function. However, barring another explanation, he will need to be considered for upcoming diagnostic cardiac catheterization to further assess his coronary anatomy, etc. for the need for revascularization therapy. In the interim he can continue medical management. This would include aspirin therapy. He can be placed on antiplatelet therapy. He is being placed on anticoagulant therapy. Nitrates can be used as needed. He is on a beta-kurt. He states he is intolerant to statins in the past causing extreme muscle weakness. Thus consideration to alternative lipid-lowering agents if need be may need to be considered. 2. Hypertension The patient has a history of underlying hypertension. He will continue medical management as needed. 3. Diabetes mellitus with complications The patient does have diabetes mellitus. He has had multiple complications attributed to his diabetes mellitus. He will continue evaluation care per internal medicine. Comment: The above was discussed and reviewed with the patient and the [facility] emergency department staff. This note was generated with [employer] dictation software. It may contain incorrect words, spelling, and punctuation that were not noted in checking the note before signing.
--- NOTE | 2018-04-01 17:01 | CON.PCM_ITS ---
Problem List (1) NSTEMI (non-ST elevated myocardial infarction) Status: Acute (2) Hypertension Status: Chronic Qualifiers: Hypertension type: essential hypertension Qualified Code(s): I10 - Essential (primary) hypertension (3) Diabetes mellitus type 2 with complications Status: Chronic Reason for Consult Date of Consultation: 04/01/18 History of Present Illness: The patient is a 57 year old white male with a past medical history which is included hypertension and diabetes mellitus with associated complications who is referred for evaluation of chest discomfort, back discomfort, shortness of breath/dyspnea, and subsequent findings of an abnormal troponin I level compatible with an acute non-ST segment elevation [place]. The patient stated that recently he has felt more short of breath and dyspneic, has been coughing, felt he may have dislocated a rib leading to chest and back discomfort, and presented to the [facility] emergency department for concerns of possible pneumonia. During his evaluation he was found to have an abnormal troponin I level. His ECG demonstrated sinus rhythm with the appearance of a septal [place] of indeterminate age and nonspecific ST segment changes potentially compatible with myocardial ischemia in the lateral distribution. A chest x-ray was performed which suggested potential atelectasis versus patchy airspace disease in the basilar areas. A chest CTA scan has been performed which based upon preliminary evaluation by the [facility] emergency department staff was considered to be negative for thromboembolic disease/PE. The patient denies any previous documented cardiovascular history. He has denied any orthopnea or PND. He has had right lower extremity injury recently which is being cared for by the [facility] wound center. He denies any near-syncope or syncope although he states he does get lightheaded and dizzy at times. He does claim to have recent diarrhea. He states he has been without any antibiotics for approximately 1 month. [] Past Medical History Allergies/Adverse Reactions: Allergies atorvastatin Adverse Reaction (Verified 04/01/18 12:16) Unknown metformin Adverse Reaction (Verified 04/01/18 12:16) Diarrhea Home Medications: Ambulatory Orders Medication Instructions Recorded Tizanidine HCl [Zanaflex] 4 mg PO 4X/DAY PRN PRN 11/07/14 Ammonium Lactate [Amlactin] 57 gm TP PRN PRN 10/04/17 Baclofen 60 mg PO DAILY 10/04/17 Celecoxib [Celebrex] 200 mg PO DAILY 10/04/17 Cholecalciferol (Vitamin D3) 5,000 unit PO DAILY 10/04/17 [Vitamin D3] Levomefolate/B6/B12/Algal Oil 1 each PO DAILY 10/04/17 [Metanx Capsule] Nortriptyline HCl 50 mg PO QHS 10/04/17 Aspirin 325 mg PO DAILY@0800 10/21/17 Amlodipine [Norvasc] 5 mg PO DAILY 04/01/18 Biotin 1 mg PO DAILY 04/01/18 Cyanocobalamin (Vitamin B-12) 1,000 mcg PO 04/01/18 [Vitamin B-12] Desonide 0.05% [Desowen 0.05% 1 applic TOPICAL BID 04/01/18 Cream] Diflorasone Diacetate [Psorcon] 1 applicatio TP BID PRN 04/01/18 Gabapentin [Neurontin] 800 mg PO TIDCM 04/01/18 Insulin Glargine,Hum.rec.anlog 20 unit SQ QHS 04/01/18 [Basaglar Kwikpen U-100] Insulin Lispro [Humalog KwikPen] See Protocol SQ TIDCM 04/01/18 Ketoconazole [Nizoral] 1 applic TOPICAL DAILY 04/01/18 Lisinopril [Zestril] 30 mg PO DAILY 04/01/18 Magnesium 250 mg PO DAILY 04/01/18 Methocarbamol [Robaxin] 500 mg PO TID PRN 04/01/18 Urea 226.8 gm TP TID 04/01/18 Past Medical History (Chronic Problems): Chronic Problems (Last Reviewed 11/01/17 @ 16:03 by Wilmer Cartwright) Other specified peripheral vascular diseases (Chronic) Xerosis of skin (Chronic) Non-compliance (Chronic) Skin ulcer of finger with fat layer exposed (Chronic) Right Index Finger 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) Hypertension (Chronic) Neuropathy (Chronic) Most likely severe diabetic neuropathy [facility] Cerebrovascular disease (Chronic) Right thalamic stroke Surgical History: - - Toe amputations RLE - *Family History Maternal Family History: Family History (Last Reviewed 11/01/17 @ 16:03 by Wilmer Cartwright) Other Arthritis Hypertension History Items: Diabetes Paternal Family History: Family History (Last Reviewed 11/01/17 @ 16:03 by Wilmer Cartwright) Other Arthritis Hypertension History Items: Diabetes Smoking Status: Never smoker Alcohol: None Drugs: None Review of Systems - Review of Systems General: Reports: Weakness. Denies: Fever, Fatigue, Night Sweats Cardiovascular: Reports: Chest Discomfort, Shortness of Breath, Dizziness. Denies: Orthopnea, PND, Peripheral Edema, Palpitations, Lightheadedness, Near Syncope, Syncope Respiratory: Reports: Shortness of Breath. Denies: Sputum Production, Hemoptysis Gastrointestinal: Reports: Diarrhea. Denies: Hematemesis, Hematochezia, Melena Genitourinary: Denies: Dysuria, Hematuria Subjectve: This is a 57-year-old white male who appears to be resting comfortably at the moment in no acute distress. Objective: Vital Signs Temp Pulse Resp BP Pulse Ox 98.6 F 102 H 18 120/75 93 04/01/18 16:19 04/01/18 16:37 04/01/18 16:37 04/01/18 16:37 04/01/18 16:37 Oxygen Flow Rate (L/min) 2 Oxygen Delivery Method Nasal Cannula General: Awake, Alert, Oriented x 3, Cooperative, No Acute Distress HEENT: Atraumatic, Normocephalic, PERRL, EOMI, Sclera Non Icteric Oral: Moist Mucosa Neck: Supple, Good ROM, No JVD Lungs: Diminished Jovany Bases Cardiovascular: Regular Rhythm, Normal S1, Normal S2 Vascular: No Carotid Bruits Abdomen: Bowel Sounds Present, Soft, Non Tender Extremities: - - Right lower extremity/right leg/right foot: NA Suman-type wrap Rhythm: Sinus rhythm EKG: As noted above CXR: As noted above: Please see official report Chest CT Scan: Please see official report Assessment/Plan 1. Acute non-ST segment elevation [place] The patient presents with a variety of symptoms. He has been found to have an abnormal troponin I level suggestive of an acute non-ST segment elevation [place]. There would be concerns based upon his multiple cardiovascular risk that this could be related to underlying CAD and a type I event versus being related to a non-CAD process and a type II supply demand mismatch event. However, he is undergoing noncardiovascular evaluation as well with a chest CT scan to evaluate for thromboembolic disease. The preliminary report is negative, however, the official report is pending. At the present time the patient is being brought into the hospital. He will be monitored. His cardiac enzymes will be followed as well as his ECG. He may need an echocardiogram to assess his left ventricular wall motion and systolic function. However, barring another explanation, he will need to be considered for upcoming diagnostic cardiac catheterization to further assess his coronary anatomy, etc. for the need for revascularization therapy. In the interim he can continue medical management. This would include aspirin therapy. He can be placed on antiplatelet therapy. He is being placed on anticoagulant therapy. Nitrates can be used as needed. He is on a beta- kurt. He states he is intolerant to statins in the past causing extreme muscle weakness. Thus consideration to alternative lipid-lowering agents if need be may need to be considered. 2. Hypertension The patient has a history of underlying hypertension. He will continue medical management as needed. 3. Diabetes mellitus with complications The patient does have diabetes mellitus. He has had multiple complications attributed to his diabetes mellitus. He will continue evaluation care per internal medicine. Comment: The above was discussed and reviewed with the patient and the [facility] emergency department staff. This note was generated with [employer] dictation software. It may contain incorrect words, spelling, and punctuation that were not noted in checking the note before signing.
[2018-04-01 18:15] LABS: Bedside Glucose 166 mg/dL (70-110)
--- NOTE | 2018-04-01 18:15 | EKG12_ITS ---
Test Reason : ADMIT EKG Blood Pressure : / mmHG Vent. Rate : 102 BPM Atrial Rate : 102 BPM P-R Int : 160 ms QRS Dur : 092 ms QT Int : 344 ms P-R-T Axes : 043 -06 120 degrees QTc Int : 448 ms Sinus tachycardia Septal infarct , age undetermined Abnormal ECG When compared with ECG of 04-OCT-2017 15:57, Septal infarct is now Present ST now depressed in Anterolateral leads Nonspecific T wave abnormality, worse in Lateral leads Confirmed by RAINER BASHIR, ANGEL ([id number]), tape editor TIERA NEWELL ([id number]) on 04/06/2018 10:33:00 AM Referred By: Agustín Emanuel Confirmed By:ANGEL SPEAR MD
[2018-04-01] MEDS: Furosemide 20 MG/2 ML VIAL IV (18:35)
[2018-04-01] MEDS: TICAGRELOR 90 MG TABLET 180 MG PO (19:26)
[2018-04-01] MEDS: Aspirin 81 MG TAB.CHEW PO (19:26)
[2018-04-01] MEDS: Gabapentin 800 MG Tablet PO (19:26)
[2018-04-01] MEDS: Carvedilol 3.125 MG TABLET PO (22:50)
[2018-04-01] MEDS: Glucerna Shake 120 ML LIQUID PO (22:50)
[2018-04-01] MEDS: Insulin Lispro 100 UNIT/ML INSULN.PEN SQ (22:50)
[2018-04-01] MEDS: Enoxaparin 100 MG/ML Syringe 90 MG SC (22:51)
[2018-04-01] MEDS: Nortriptyline 25 MG Capsule 50 MG PO (22:51)
[2018-04-02] VITALS (14 sets, daily range): BP systolic 98–110; BP diastolic 62–71; PULSE 86–102; RESP 17–27; TEMP 36.8–37.4; O2SAT 95–98
[2018-04-02 00:51] LABS: Bedside Glucose 230 mg/dL (70-110)
[2018-04-02] MEDS: Acetaminophen 325 MG Tablet 650 MG PO ×2 (02:41→08:57)
[2018-04-02] MEDS: BENZOCAINE/MENTHOL 1 LOZENGE MUCOUS MEM (02:41)
[2018-04-02] MEDS: metroNIDAZOLE 500 MG Tablet PO ×3 (05:53→22:50)
--- NOTE | 2018-04-02 05:55 | EKG12_ITS ---
Test Reason : AM EKG Blood Pressure : / mmHG Vent. Rate : 097 BPM Atrial Rate : 097 BPM P-R Int : 162 ms QRS Dur : 092 ms QT Int : 348 ms P-R-T Axes : 041 -10 121 degrees QTc Int : 441 ms Normal sinus rhythm Septal infarct , age undetermined Abnormal ECG When compared with ECG of 01-APR-2018 18:26, MANUAL COMPARISON REQUIRED, DATA IS UNCONFIRMED Confirmed by RAINER BASHIR, ANGEL ([id number]), editor newspaper TIERA NEWELL ([id number]) on 04/06/2018 10:19:15 AM Referred By: Agustín Emanuel Confirmed By:ANGEL SPEAR MD
[2018-04-02 06:50] LABS: Hematocrit 36.7 % (40-54); Hemoglobin 11.5 g/dl (13.0-16.5); Mean Corp Hgb Conc 31.3 g/gl (32-36); Mean Corpuscular Hgb 31.2 pg (27.0-32.0); Mean Corpuscular Volume 99.5 fL (80-94); Mean Platelet Vol. 10.3 fl (6.2-12.0); Platelet Count 241 K/mm3 (150-450); RBC Distribution Width CV 13.6 % (11.6-14.6); RBC Distribution Width SD 49.4 fl (35.1-43.9); Red Blood Count 3.69 M/mm3 (4.6-6.2); White Blood Count 15.6 K/mm3 (4.4-11.0)
[2018-04-02 07:03] LABS: Scan Indicated on CBC? Y/N NO
[2018-04-02 07:16] LABS: Anion Gap 7 (5-15); BUN 30 mg/dL (7-18); BUN/Creat Ratio 23.3 RATIO (10-20); Calcium,Total 8.4 mg/dL (8.5-10.1); Chloride 105 mmol/L (98-107); Cholesterol 94 mg/dL (200); Creatinine, Serum 1.29 mg/dL (0.70-1.30); EST Glomerular Filtration Rate 61 mL/min (>60); Est Glom Filt Rate - Afr Amer 74 mL/min (>60); Estimated Creatinine Clearance 66.02 ml/min; Glucose 133 mg/dL (74-106); High Density Lipoprotein 35 mg/dL; Sodium Level 138 mmol/L (136-145); Triglycerides 66 mg/dL; Very Low Density Lipoprotein 13 mg/dL (5-40)
[2018-04-02] MEDS: Insulin Lispro 100 UNIT/ML INSULN.PEN SQ ×2 (08:43→12:57)
[2018-04-02] MEDS: Gabapentin 800 MG Tablet PO ×3 (08:44→18:28)
[2018-04-02] MEDS: Aspirin 81 MG TAB.CHEW PO (08:44)
[2018-04-02] MEDS: Glucerna Shake 120 ML LIQUID PO ×4 (08:45→22:50)
[2018-04-02] MEDS: Carvedilol 3.125 MG TABLET PO (08:45)
[2018-04-02] MEDS: TICAGRELOR 90 MG TABLET PO ×2 (08:45→22:50)
[2018-04-02] MEDS: Enoxaparin 100 MG/ML Syringe 90 MG SC ×2 (08:46→22:51)
[2018-04-02] MEDS: Magnesium Oxide 400 MG Tablet PO (08:46)
[2018-04-02] MEDS: Furosemide 20 MG/2 ML VIAL IV (08:46)
[2018-04-02] MEDS: Cyanocobalamin 500 MCG Tablet 1000 MCG PO (08:47)
--- NOTE | 2018-04-02 10:29 | PCM.PN.CARD ---
Subjectve: The patient states his chest, back, and breathing are better. However when he coughs he still has residual rib pain . He also notes he continues with intermittent episodes of loose bowel movements/diarrhea. Objective: Vital Signs Temp Pulse Resp BP Pulse Ox 98.8 F 95 17 98/65 95 04/02/18 07:52 04/02/18 07:52 04/02/18 07:52 04/02/18 07:52 04/02/18 08:17 Oxygen Flow Rate (L/min) 2 Oxygen Delivery Method Room Air Weight: 202 lb 13.204 oz Body Mass Index (BMI) 29.0 Intake and Output for Last 24 Hours 03/31/18 04/01/18 04/02/18 23:59 23:59 23:59 Intake Total 470 / 470 610 / 610 Balance 470 / 470 610 / 610 General: Awake, Alert, Oriented x 3, Cooperative, No Acute Distress HEENT: Atraumatic, Normocephalic, PERRL, EOMI Oral: Moist Mucosa Neck: Supple, Good ROM, No JVD Lungs: Rhonchi - Scattered: Improved compared to previous evaluation Cardiovascular: Regular Rhythm, Normal S1, Normal S2 Abdomen: Bowel Sounds Present, Soft, Non Tender Extremities: - - Right lower extremity: Suman-type wrap bandage 04/01/18 16:35: Troponin I 6.000 H* 04/01/18 17:00: Troponin I 6.240 H* 04/02/18 05:58: Sodium 138, Potassium 4.0, Chloride 105, Carbon Dioxide 26.0, Anion Gap 7, BUN 30 H, Creatinine 1.29, Est GFR (MDRD) Af Amer 74, Est GFR (MDRD) Non-Af 61, BUN/Creatinine Ratio 23.3 H, Glucose 133 H, Calcium 8.4 L, Triglycerides 66, Cholesterol 94, LDL Cholesterol 46, VLDL Cholesterol 13, HDL Cholesterol 35 L 04/02/18 05:58: WBC 15.6 H, RBC 3.69 L, Hgb 11.5 L, Hct 36.7 L, MCV 99.5 H, MCH 31.2, MCHC 31.3 L, RDW 13.6, RDW Differential 49.4 H, Plt Count 241, MPV 10.3 Rhythm: Sinus rhythm EKG: Sinus rhythm; septal CT of indeterminate age cannot be excluded; ST segment abnormality potentially compatible with myocardial ischemia-lateral; overall compared to the previous ECG-no acute changes Chest CT scan: Reported as no great vessel disease/thromboembolic disease; bilateral pleural effusions; please see official report Medical Necessity - Tobacco Use Smoking Status: Never smoker Tobacco Use: Non-smoker Assessment/Plan 1. Acute non-ST segment elevation CT The patient presents with a variety of symptoms. He has been found to have an abnormal troponin I level suggestive of an acute non-ST segment elevation CT. There would be concerns based upon his multiple cardiovascular risk that this could be related to underlying CAD and a type I event versus being related to a non-CAD process and a type II supply demand mismatch event. His chest CT scan was reported as negative for great vessel disease or thromboembolic disease. At the present time the patient is being brought into the hospital. He will be monitored. His cardiac enzymes have remained elevated without significant change. He may need an echocardiogram to assess his left ventricular wall motion and systolic function. However, barring another explanation, he will need to be considered for upcoming diagnostic cardiac catheterization to further assess his coronary anatomy, etc. for the need for revascularization therapy. This procedure, with respect to the risks and benefits, was discussed with the patient. He was agreeable to this approach. In the interim he can continue medical management. This would include aspirin therapy. He can be placed on antiplatelet therapy. He is being placed on anticoagulant therapy. Nitrates can be used as needed. He is on a beta-kurt. He states he is intolerant to statins in the past causing extreme muscle weakness. Thus consideration to alternative lipid-lowering agents if need be may need to be considered. 2. Hypertension The patient has a history of underlying hypertension. He will continue medical management as needed. 3. Diabetes mellitus with complications The patient does have diabetes mellitus. He has had multiple complications attributed to his diabetes mellitus. He will continue evaluation care per internal medicine. Comment: The above was discussed and reviewed with the patient and the [facility] emergency department staff. This note was generated with [employer] software. It may contain incorrect words, spelling, and punctuation that were not noted in checking the note before signing.
--- NOTE | 2018-04-02 10:33 | PN.CARD_ITS ---
Subjectve: The patient states his chest, back, and breathing are better. However when he coughs he still has residual rib pain . He also notes he continues with intermittent episodes of loose bowel movements/diarrhea. Objective: Vital Signs Temp Pulse Resp BP Pulse Ox 98.8 F 95 17 98/65 95 04/02/18 07:52 04/02/18 07:52 04/02/18 07:52 04/02/18 07:52 04/02/18 08:17 Oxygen Flow Rate (L/min) 2 Oxygen Delivery Method Room Air Weight: 202 lb 13.204 oz Body Mass Index (BMI) 29.0 Intake and Output for Last 24 Hours 03/31/18 04/01/18 04/02/18 23:59 23:59 23:59 Intake Total 470 / 470 610 / 610 Balance 470 / 470 610 / 610 General: Awake, Alert, Oriented x 3, Cooperative, No Acute Distress HEENT: Atraumatic, Normocephalic, PERRL, EOMI Oral: Moist Mucosa Neck: Supple, Good ROM, No JVD Lungs: Rhonchi - Scattered: Improved compared to previous evaluation Cardiovascular: Regular Rhythm, Normal S1, Normal S2 Abdomen: Bowel Sounds Present, Soft, Non Tender Extremities: - - Right lower extremity: Suman-type wrap bandage 04/01/18 16:35: Troponin I 6.000 H* 04/01/18 17:00: Troponin I 6.240 H* 04/02/18 05:58: Sodium 138, Potassium 4.0, Chloride 105, Carbon Dioxide 26.0, Anion Gap 7, BUN 30 H, Creatinine 1.29, Est GFR (MDRD) Af Amer 74, Est GFR (MDRD ) Non-Af 61, BUN/Creatinine Ratio 23.3 H, Glucose 133 H, Calcium 8.4 L, Triglycerides 66, Cholesterol 94, LDL Cholesterol 46, VLDL Cholesterol 13, HDL Cholesterol 35 L 04/02/18 05:58: WBC 15.6 H, RBC 3.69 L, Hgb 11.5 L, Hct 36.7 L, MCV 99.5 H, MCH 31.2, MCHC 31.3 L, RDW 13.6, RDW Differential 49.4 H, Plt Count 241, MPV 10.3 Rhythm: Sinus rhythm EKG: Sinus rhythm; septal OH of indeterminate age cannot be excluded; ST segment abnormality potentially compatible with myocardial ischemia-lateral; overall compared to the previous ECG-no acute changes Chest CT scan: Reported as no great vessel disease/thromboembolic disease; bilateral pleural effusions; please see official report Medical Necessity - Tobacco Use Smoking Status: Never smoker Tobacco Use: Non-smoker Assessment/Plan 1. Acute non-ST segment elevation [place] The patient presents with a variety of symptoms. He has been found to have an abnormal troponin I level suggestive of an acute non-ST segment elevation OH. There would be concerns based upon his multiple cardiovascular risk that this could be related to underlying CAD and a type I event versus being related to a non-CAD process and a type II supply demand mismatch event. His chest CT scan was reported as negative for great vessel disease or thromboembolic disease. At the present time the patient is being brought into the hospital. He will be monitored. His cardiac enzymes have remained elevated without significant change. He may need an echocardiogram to assess his left ventricular wall motion and systolic function. However, barring another explanation, he will need to be considered for upcoming diagnostic cardiac catheterization to further assess his coronary anatomy, etc. for the need for revascularization therapy. This procedure, with respect to the risks and benefits, was discussed with the patient. He was agreeable to this approach. In the interim he can continue medical management. This would include aspirin therapy. He can be placed on antiplatelet therapy. He is being placed on anticoagulant therapy. Nitrates can be used as needed. He is on a beta- kurt. He states he is intolerant to statins in the past causing extreme muscle weakness. Thus consideration to alternative lipid-lowering agents if need be may need to be considered. 2. Hypertension The patient has a history of underlying hypertension. He will continue medical management as needed. 3. Diabetes mellitus with complications The patient does have diabetes mellitus. He has had multiple complications attributed to his diabetes mellitus. He will continue evaluation care per internal medicine. Comment: The above was discussed and reviewed with the patient and the [facility] emergency department staff. This note was generated with [employer] software. It may contain incorrect words, spelling, and punctuation that were not noted in checking the note before signing.
[2018-04-02] MEDS: Baclofen 10 MG Tablet 20 MG PO ×2 (12:57→18:26)
[2018-04-02 13:05] LABS: Bedside Glucose 158 mg/dL (70-110)
--- NOTE | 2018-04-02 16:23 | PCM.PN.HOSP ---
Patient Problems: Active and Suspected Problems (Last Reviewed 11/01/17 @ 16:03 by Wilmer Cartwright) NSTEMI (non-ST elevated myocardial infarction) (Acute) NSTEMI (non-ST elevated myocardial infarction) (Acute) CHF (congestive heart failure) (Acute) Subjective: Patient was seen and examined. He states he feels much better than he did in the last couple of days. Denied any chest pain no dizziness or fever or chills. He will be going for cardiac cath tomorrow morning. Objective: Physical Exam General: Alert, Cooperative, No apparent distress, off oxygen HEENT: Atraumatic, PERRLA, EOMI, Normocephalic Oral: Moist Mucosa Neck: Supple, JVD, Right Lungs: Diminished, Rales - All over the middle and lower lung zones Cardiovascular: Normal S1, Normal S2, Irregular Rate, Murmur - 3/4 systolic murmur Abdomen: Bowel Sounds Present, Soft, Non Tender, Non-Distended, No Hepato-splenomegaly Extremities: Edema - Trace bilateral edema Skin: No rashes, No breakdown Musculoskeletal: No Tenderness to Palpation of Joints or Extremities Lymphatic: No Cervical, Supraclavicular, or Inguinal Adenopathy Neurological: Cranial nerves II-XII grossly intact Psych/Mental Status: Normal Affect, Appropriate Vitals/I&O's: Vital Signs Temp Pulse Resp BP Pulse Ox 98.8 F 86 17 98/65 95 04/02/18 07:52 04/02/18 11:37 04/02/18 07:52 04/02/18 07:52 04/02/18 08:17 Oxygen Flow Rate (L/min) 2 Oxygen Delivery Method Room Air Weight: 92 kg Body Mass Index (BMI) 29.0 Intake and Output for Last 24 Hours 03/31/18 04/01/18 04/02/18 23:59 23:59 23:59 Intake Total 470 / 470 1270 / 1270 Balance 470 / 470 1270 / 1270 Microbiology Past 72 Hours 04/02/18 Unknown Stool Enteric Bacteriology - Final 04/02/18 01:36 Stool C. difficile DNA Amplification - Final Toxigenic C. difficile DNA Laboratory Results 04/01/18 16:35: Troponin I 6.000 H* 04/01/18 17:00: Troponin I 6.240 H* 04/01/18 17:35: POC Glucose 166 H 04/01/18 22:39: POC Glucose 230 H 04/02/18 05:58: Sodium 138, Potassium 4.0, Chloride 105, Carbon Dioxide 26.0, Anion Gap 7, BUN 30 H, Creatinine 1.29, Estim Creat Clear Calc 66.02, Est GFR (MDRD) Af Amer 74, Est GFR (MDRD) Non-Af 61, BUN/Creatinine Ratio 23.3 H, Glucose 133 H, Calcium 8.4 L, Triglycerides 66, Cholesterol 94, LDL Cholesterol 46, VLDL Cholesterol 13, HDL Cholesterol 35 L 04/02/18 05:58: WBC 15.6 H, RBC 3.69 L, Hgb 11.5 L, Hct 36.7 L, MCV 99.5 H, MCH 31.2, MCHC 31.3 L, RDW 13.6, RDW Differential 49.4 H, Plt Count 241, MPV 10.3 04/02/18 05:58: B-Natriuretic Peptide 385.0 H 04/02/18 06:54: POC Glucose 158 H Current Medications Acetaminophen (Tylenol) 650 mg PO Q6H PRN PRN PRN Reason: Mild Pain (1-3)/Temp > 100.7 F Last Admin: 04/02/18 08:57 Dose: 650 mg Aspirin (Aspirin, Baby) 81 mg PO DAILY@0800 [facility] Last Admin: 04/02/18 08:44 Dose: 81 mg Baclofen (Lioresal) 20 mg PO TIDCM [facility] Last Admin: 04/02/18 12:57 Dose: 20 mg Carvedilol (Coreg) 3.125 mg PO BID [facility] Last Admin: 04/02/18 08:45 Dose: 3.125 mg Cyanocobalamin (Vitamin B12) 1,000 mcg PO DAILY [facility] Last Admin: 04/02/18 08:47 Dose: 1,000 mcg Dextrose (D50w Syringe) 0 gm IV X1 PRN; Protocol PRN Reason: Hypoglycemia Enoxaparin Sodium (Lovenox) 90 mg 1 mg/kg (90 mg) SC Q12 [facility] Last Admin: 04/02/18 08:46 Dose: 90 mg Furosemide (Lasix) 20 mg IV DAILY [facility] Gabapentin (Neurontin) 800 mg PO TIDCM [facility] Last Admin: 04/02/18 12:57 Dose: 800 mg Glucagon () 1 mg IM .X1 PRN PRN Reason: Hypoglycemia Sodium Chloride () 1,000 mls @ 15 mls/hr IV .Q48H JO ANN PRN Reason: KVO Insulin Detemir (Levemir (Bk)) 20 units SC QHS [facility] Last Admin: 04/01/18 22:51 Dose: 20 u Insulin Human Lispro (Humalog Kwikpen ([facility])) 0 unit SQ ACHS JO ANN PRN Reason: Protocol Last Admin: 04/02/18 12:57 Dose: 2 u Magnesium Hydroxide (Milk Of Magnesia) 30 ml PO DAILY PRN PRN Reason: Constipation Magnesium Oxide (Mag-Ox 400) 400 mg PO DAILY [facility] Last Admin: 04/02/18 08:46 Dose: 400 mg Metronidazole (Flagyl) 500 mg PO Q8 [facility] Last Admin: 04/02/18 05:53 Dose: 500 mg Morphine Sulfate () 1 mg IV Q4H PRN PRN PRN Reason: SEVERE PAIN (6-10/10) Nortriptyline HCl (Pamelor) 50 mg PO QHS [facility] Last Admin: 04/01/18 22:51 Dose: 50 mg Nutritional Formula (Lactose Free) (Glucerna Shake) 120 ml PO 4X/DAY [facility] Last Admin: 04/02/18 08:45 Dose: 120 ml Ondansetron HCl (Zofran) 4 mg IV Q8H PRN PRN PRN Reason: NAUSEA Throat Lozenges (Cepacol Sore Throat Lozenge) 1 lozenge MUCOUS MEM Q4H PRN PRN PRN Reason: COUGH Last Admin: 04/02/18 02:41 Dose: 1 lozenge Ticagrelor (Brilinta) 90 mg PO BID [facility] Last Admin: 04/02/18 08:45 Dose: 90 mg Medical Necessity - Tobacco Use Smoking Status: Never smoker Tobacco Use: Non-smoker Assessment/Plan All Active Problems (Last Reviewed 11/01/17 @ 16:03 by Wilmer Cartwright) Ulcer of right foot with fat layer exposed (Resolved) Chronic ulcer of left foot with fat layer exposed (Resolved) NSTEMI (non-ST elevated myocardial infarction) (Acute) NSTEMI (non-ST elevated myocardial infarction) (Acute) CHF (congestive heart failure) (Acute) Thoracic neuritis (Acute) Segmental and somatic dysfunction of lumbar region (Acute) Segmental and somatic dysfunction of cervical region (Acute) Segmental and somatic dysfunction of thoracic region (Acute) Cellulitis lft foot failed outpatient tx (Acute) Diabetic foot ulcer associated with type 2 diabetes mellitus (Acute) Acute left-sided weakness (Resolved) Left sided numbness (Resolved) Muscle wasting disorder (Resolved) 57 year old M past medical history of Raynaoud disease, PAD, PVD, status post amputation of the right toe, recent history of frostbite, history of chronic wound follows up in the wound center, comes in with complaints of shortness of breath ongoing for the past 2 days as well as diarrhea. 1. Acute NSTEMI likely secondary to acute CHF, admitting troponin was 6.020, ST segment depression in the lateral leads, on therapeutic Lovenox, beta-kurt, aspirin, Brilinta, patient will get a cardiac cath either tomorrow or Tuesday, continue to monitor. 2. Acute respiratory insufficiency secondary to acute CHF, resolved, off oxygen 3. Acute CHF, questionable EF, new onset, last 2D echo was 2013, that was normal, improving, decrease Lasix to 20 mg IV daily, continue with beta-kurt, cardiology consulted, 2D echo, check I's and O's, fluid restriction, daily weights 4. Acute C. difficile, started on metronidazole, will continue to monitor 5. History of PAD/PVD status post right acute amputation, continue on antiplatelet therapy 6. Type II DM, on insulin, blood sugars are fairly uncontrolled, with home insulin as well as Accu-Cheks with insulin sliding scale. 7. Chronic pain syndrome, continue on home regimen 8. Leukocytosis, likely reactive, improving, will continue to trend 9. Right lower extremity wound, per wound notes in the outpatient, patient is to have dressing on for about a week, will get wound nurse consulted 10. DVT prophylaxis- patient is on Lovenox subcu therapeutic dosing Code Visit Inpatient E&M: 29646 Subs Hosp L3
--- NOTE | 2018-04-02 16:30 | PN_ITS ---
Patient Problems: Active and Suspected Problems (Last Reviewed 11/01/17 @ 16:03 by Wilmer Cartwright) NSTEMI (non-ST elevated myocardial infarction) (Acute) NSTEMI (non-ST elevated myocardial infarction) (Acute) CHF (congestive heart failure) (Acute) Subjective: Patient was seen and examined. He states he feels much better than he did in the last couple of days. Denied any chest pain no dizziness or fever or chills. He will be going for cardiac cath tomorrow morning. Objective: Physical Exam General: Alert, Cooperative, No apparent distress, off oxygen HEENT: Atraumatic, PERRLA, EOMI, Normocephalic Oral: Moist Mucosa Neck: Supple, JVD, Right Lungs: Diminished, Rales - All over the middle and lower lung zones Cardiovascular: Normal S1, Normal S2, Irregular Rate, Murmur - 3/4 systolic murmur Abdomen: Bowel Sounds Present, Soft, Non Tender, Non-Distended, No Hepato- splenomegaly Extremities: Edema - Trace bilateral edema Skin: No rashes, No breakdown Musculoskeletal: No Tenderness to Palpation of Joints or Extremities Lymphatic: No Cervical, Supraclavicular, or Inguinal Adenopathy Neurological: Cranial nerves II-XII grossly intact Psych/Mental Status: Normal Affect, Appropriate Vitals/I&O's: Vital Signs Temp Pulse Resp BP Pulse Ox 98.8 F 86 17 98/65 95 04/02/18 07:52 04/02/18 11:37 04/02/18 07:52 04/02/18 07:52 04/02/18 08:17 Oxygen Flow Rate (L/min) 2 Oxygen Delivery Method Room Air Weight: 92 kg Body Mass Index (BMI) 29.0 Intake and Output for Last 24 Hours 03/31/18 04/01/18 04/02/18 23:59 23:59 23:59 Intake Total 470 / 470 1270 / 1270 Balance 470 / 470 1270 / 1270 Microbiology Past 72 Hours 04/02/18 Unknown Stool Enteric Bacteriology - Final 04/02/18 01:36 Stool C. difficile DNA Amplification - Final Toxigenic C. difficile DNA Laboratory Results 04/01/18 16:35: Troponin I 6.000 H* 04/01/18 17:00: Troponin I 6.240 H* 04/01/18 17:35: POC Glucose 166 H 04/01/18 22:39: POC Glucose 230 H 04/02/18 05:58: Sodium 138, Potassium 4.0, Chloride 105, Carbon Dioxide 26.0, Anion Gap 7, BUN 30 H, Creatinine 1.29, Estim Creat Clear Calc 66.02, Est GFR ( MDRD) Af Amer 74, Est GFR (MDRD) Non-Af 61, BUN/Creatinine Ratio 23.3 H, Glucose 133 H, Calcium 8.4 L, Triglycerides 66, Cholesterol 94, LDL Cholesterol 46, VLDL Cholesterol 13, HDL Cholesterol 35 L 04/02/18 05:58: WBC 15.6 H, RBC 3.69 L, Hgb 11.5 L, Hct 36.7 L, MCV 99.5 H, MCH 31.2, MCHC 31.3 L, RDW 13.6, RDW Differential 49.4 H, Plt Count 241, MPV 10.3 04/02/18 05:58: B-Natriuretic Peptide 385.0 H 04/02/18 06:54: POC Glucose 158 H Current Medications Acetaminophen (Tylenol) 650 mg PO Q6H PRN PRN PRN Reason: Mild Pain (1-3)/Temp > 100.7 F Last Admin: 04/02/18 08:57 Dose: 650 mg Aspirin (Aspirin, Baby) 81 mg PO DAILY@0800 [facility] Last Admin: 04/02/18 08:44 Dose: 81 mg Baclofen (Lioresal) 20 mg PO TIDCM [facility] Last Admin: 04/02/18 12:57 Dose: 20 mg Carvedilol (Coreg) 3.125 mg PO BID [facility] Last Admin: 04/02/18 08:45 Dose: 3.125 mg Cyanocobalamin (Vitamin B12) 1,000 mcg PO DAILY [facility] Last Admin: 04/02/18 08:47 Dose: 1,000 mcg Dextrose (D50w Syringe) 0 gm IV X1 PRN; Protocol PRN Reason: Hypoglycemia Enoxaparin Sodium (Lovenox) 90 mg 1 mg/kg (90 mg) SC Q12 [facility] Last Admin: 04/02/18 08:46 Dose: 90 mg Furosemide (Lasix) 20 mg IV DAILY [facility] Gabapentin (Neurontin) 800 mg PO TIDCM [facility] Last Admin: 04/02/18 12:57 Dose: 800 mg Glucagon () 1 mg IM .X1 PRN PRN Reason: Hypoglycemia Sodium Chloride () 1,000 mls @ 15 mls/hr IV .Q48H JO ANN PRN Reason: KVO Insulin Detemir (Levemir (Bk)) 20 units SC QHS [facility] Last Admin: 04/01/18 22:51 Dose: 20 u Insulin Human Lispro (Humalog Kwikpen ([facility])) 0 unit SQ ACHS JO ANN PRN Reason: Protocol Last Admin: 04/02/18 12:57 Dose: 2 u Magnesium Hydroxide (Milk Of Magnesia) 30 ml PO DAILY PRN PRN Reason: Constipation Magnesium Oxide (Mag-Ox 400) 400 mg PO DAILY [facility] Last Admin: 04/02/18 08:46 Dose: 400 mg Metronidazole (Flagyl) 500 mg PO Q8 [facility] Last Admin: 04/02/18 05:53 Dose: 500 mg Morphine Sulfate () 1 mg IV Q4H PRN PRN PRN Reason: SEVERE PAIN (6-10/10) Nortriptyline HCl (Pamelor) 50 mg PO QHS [facility] Last Admin: 04/01/18 22:51 Dose: 50 mg Nutritional Formula (Lactose Free) (Glucerna Shake) 120 ml PO 4X/DAY [facility] Last Admin: 04/02/18 08:45 Dose: 120 ml Ondansetron HCl (Zofran) 4 mg IV Q8H PRN PRN PRN Reason: NAUSEA Throat Lozenges (Cepacol Sore Throat Lozenge) 1 lozenge MUCOUS MEM Q4H PRN PRN PRN Reason: COUGH Last Admin: 04/02/18 02:41 Dose: 1 lozenge Ticagrelor (Brilinta) 90 mg PO BID [facility] Last Admin: 04/02/18 08:45 Dose: 90 mg Medical Necessity - Tobacco Use Smoking Status: Never smoker Tobacco Use: Non-smoker Assessment/Plan All Active Problems (Last Reviewed 11/01/17 @ 16:03 by Wilmer Cartwright) Ulcer of right foot with fat layer exposed (Resolved) Chronic ulcer of left foot with fat layer exposed (Resolved) NSTEMI (non-ST elevated myocardial infarction) (Acute) NSTEMI (non-ST elevated myocardial infarction) (Acute) CHF (congestive heart failure) (Acute) Thoracic neuritis (Acute) Segmental and somatic dysfunction of lumbar region (Acute) Segmental and somatic dysfunction of cervical region (Acute) Segmental and somatic dysfunction of thoracic region (Acute) Cellulitis lft foot failed outpatient tx (Acute) Diabetic foot ulcer associated with type 2 diabetes mellitus (Acute) Acute left-sided weakness (Resolved) Left sided numbness (Resolved) Muscle wasting disorder (Resolved) 57 year old M past medical history of Raynaoud disease, PAD, PVD, status post amputation of the right toe, recent history of frostbite, history of chronic wound follows up in the wound center, comes in with complaints of shortness of breath ongoing for the past 2 days as well as diarrhea. 1. Acute NSTEMI likely secondary to acute CHF, admitting troponin was 6.020, ST segment depression in the lateral leads, on therapeutic Lovenox, beta-kurt, aspirin, Brilinta, patient will get a cardiac cath either tomorrow or Tuesday, continue to monitor. 2. Acute respiratory insufficiency secondary to acute CHF, resolved, off oxygen 3. Acute CHF, questionable EF, new onset, last 2D echo was 2013, that was normal , improving, decrease Lasix to 20 mg IV daily, continue with beta-kurt, cardiology consulted, 2D echo, check I's and O's, fluid restriction, daily weights 4. Acute C. difficile, started on metronidazole, will continue to monitor 5. History of PAD/PVD status post right acute amputation, continue on antiplatelet therapy 6. Type II DM, on insulin, blood sugars are fairly uncontrolled, with home insulin as well as Accu-Cheks with insulin sliding scale. 7. Chronic pain syndrome, continue on home regimen 8. Leukocytosis, likely reactive, improving, will continue to trend 9. Right lower extremity wound, per wound notes in the outpatient, patient is to have dressing on for about a week, will get wound nurse consulted 10. DVT prophylaxis- patient is on Lovenox subcu therapeutic dosing Code Visit Inpatient E&M: 63389 Subs Hosp L3
[2018-04-02 16:56] LABS: Bedside Glucose 139 mg/dL (70-110)
[2018-04-02 16:56] LABS: Bedside Glucose 245 mg/dL (70-110)
[2018-04-02] MEDS: Nortriptyline 25 MG Capsule 50 MG PO (22:51)
[2018-04-03] VITALS (19 sets, daily range): BP systolic 107–127; BP diastolic 67–81; PULSE 78–100; RESP 16–24; TEMP 36.6–37.9; O2SAT 94–99
[2018-04-03 01:41] LABS: Bedside Glucose 124 mg/dL (70-110)
[2018-04-03 04:23] LABS: Color, Urine Yellow (Yellow); Glucose, Dipstick Normal (Normal); Ketone-Dipstick 5 mg/dl (Negative); Leukocyte Esterase-Dipstick 25 /ul (Negative); Nitrite-Dipstick Negative (Negative); Occult Blood-Urine Negative /ul (Negative); Protein-Dipstick 15 mg/dl (Negative); Specific Gravity, Urine 1.015 (1.002-1.030); Urine Bilirubin Dipstick Negative (Negative); Urine Clarity Clear (Clear); Urine Urobilinogen Normal (Normal)
--- NOTE | 2018-04-03 05:55 | EKG12_ITS ---
Test Reason : AM EKG Blood Pressure : / mmHG Vent. Rate : 097 BPM Atrial Rate : 097 BPM P-R Int : 166 ms QRS Dur : 094 ms QT Int : 356 ms P-R-T Axes : 051 -07 099 degrees QTc Int : 452 ms Normal sinus rhythm Septal infarct , age undetermined Abnormal ECG When compared with ECG of 02-APR-2018 05:39, MANUAL COMPARISON REQUIRED, DATA IS UNCONFIRMED Confirmed by RAINER BASHIR, ANGEL ([id number]), marketing editor TIERA NEWELL ([id number]) on 04/06/2018 10:15:35 AM Referred By: Agustín Emanuel Confirmed By:ANGEL SPERA MD
[2018-04-03] MEDS: Aspirin 81 MG TAB.CHEW PO (06:03)
[2018-04-03] MEDS: metroNIDAZOLE 500 MG Tablet PO ×3 (06:04→21:12)
[2018-04-03] MEDS: TICAGRELOR 90 MG TABLET PO ×2 (06:04→21:12)
[2018-04-03] MEDS: 0.9% Normal Saline 1,000 ML 15 ML IV (06:05)
[2018-04-03 06:20] LABS: International Normalized Ratio 1.2; Prothrombin Time (Protime)PT. 15.3 SECONDS (11.7-14.9)
[2018-04-03 06:21] LABS: Partial Thromboplast Time 34.7 Seconds (24.1-36.2)
[2018-04-03 06:42] LABS: Anion Gap 9 (5-15); BUN 30 mg/dL (7-18); BUN/Creat Ratio 33.4 RATIO (10-20); Calcium,Total 8.2 mg/dL (8.5-10.1); Chloride 107 mmol/L (98-107); EST Glomerular Filtration Rate 93 mL/min (>60); Est Glom Filt Rate - Afr Amer 112 mL/min (>60); Estimated Creatinine Clearance 94.63 ml/min; Glucose 99 mg/dL (74-106); Potassium 3.7 mmol/L (3.5-5.1); Sodium Level 141 mmol/L (136-145)
[2018-04-03 07:01] LABS: Absolute Lymphocyte Count 1.29 X10^3/ul (0.83-4.51); Absolute Neutrophil Count 10.7 X10^3/uL (2.0-7.7); Basophil# 0.03 X10^3/uL; Basophil% 0.2 % (0-1); Eosinophil# 0.37 X10^3/uL; Eosinophils% 2.6 % (0-5); Hematocrit 35.9 % (40-54); Hemoglobin 11.5 g/dl (13.0-16.5); Lymphocyte # 1.29 X10^3/ul (4.0); Lymphocyte % 9.1 % (19-41); Mean Corpuscular Hgb 31.4 pg (27.0-32.0); Mean Corpuscular Volume 98.1 fL (80-94); Mean Platelet Vol. 9.9 fl (6.2-12.0); Monocyte# 1.59 X10^3/uL; Monocyte% 11.3 % (0-10); Neutrophil # 10.74 X10^3/uL (2.7-7.7); Neutrophil % 76.1 % (47-70); Platelet Count 254 K/mm3 (150-450); RBC Distribution Width CV 13.7 % (11.6-14.6); RBC Distribution Width SD 48.7 fl (35.1-43.9); Red Blood Count 3.66 M/mm3 (4.6-6.2); White Blood Count 14.1 K/mm3 (4.4-11.0)
[2018-04-03 07:05] LABS: Differential Indicated SCAN CRITERIA MET; POSITIVE COUNT NO; POSITIVE DIFFERENTIAL YES; POSITIVE MORPHOLOGY NO
--- NOTE | 2018-04-03 07:05 | NURSING ---
Report called to cleaner laboratory equipment. MOVING WORKER notified that pt can be taken down at this time.
[2018-04-03 07:30] LABS: Differential Comment SCANNED
--- NOTE | 2018-04-03 08:06 | PCM.PN.CARD ---
Subjectve: The patient denies ongoing chest pain / back pain. He states his breathing has improved. He is now s/p diagnostic cardiac catheterization. 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 Objective: Vital Signs Temp Pulse Resp BP Pulse Ox 98.9 F 95 23 H 107/67 97 04/03/18 05:56 04/03/18 05:56 04/03/18 05:56 04/03/18 05:56 04/03/18 05:56 Oxygen Flow Rate (L/min) 2 Oxygen Delivery Method Room Air Weight: 202 lb 13.204 oz Body Mass Index (BMI) 29.0 Intake and Output for Last 24 Hours 04/01/18 04/02/18 04/03/18 23:59 23:59 23:59 Intake Total 470 / 470 2710 / 2710 0 / 0 Output Total 150 / 150 Balance 470 / 470 2710 / 2710 -150 / -150 General: Awake, Alert, Oriented x 3, Cooperative, No Acute Distress Neck: No JVD Lungs: Clear to auscultation Cardiovascular: Regular Rhythm, Normal S1, Normal S2 Abdomen: Bowel Sounds Present, Soft, Non Tender Extremities: No Cyanosis, No Clubbing, No edema 04/02/18 05:58: B-Natriuretic Peptide 385.0 H 04/03/18 02:25: Urine Color Yellow, Urine Clarity Clear, Urine pH 6.0, Ur Specific [place] 1.015, Urine Protein 15 H, Urine Glucose (UA) Normal, Urine Ketones 5 H, Urine Occult Blood Negative, Urine Nitrite Negative, Urine Bilirubin Negative, Urine Urobilinogen Normal, Ur Leukocyte Esterase 25 H 04/03/18 05:45: WBC 14.1 H, RBC 3.66 L, Hgb 11.5 L, Hct 35.9 L, MCV 98.1 H, MCH 31.4, MCHC 32.0, RDW 13.7, RDW Differential 48.7 H, Plt Count 254, MPV 9.9, Immature Gran % (Auto) 0.700, Neut % (Auto) 76.1 H, Lymph % (Auto) 9.1 L, [place] % (Auto) 11.3 H, Eos % (Auto) 2.6, Baso % (Auto) 0.2, Absolute Neuts (auto) 10.7 H, Total Counted Not Reportable 04/03/18 05:45: Sodium 141, Potassium 3.7, Chloride 107, Carbon Dioxide 25.0, Anion Gap 9, BUN 30 H, Creatinine 0.90, Est GFR (MDRD) Af Amer 112, Est GFR (MDRD) Non-Af 93, BUN/Creatinine Ratio 33.4 H, Glucose 99, Calcium 8.2 L 04/03/18 05:45: PT 15.3 H, INR 1.2, APTT 34.7 Rhythm: sinus rhythm EKG: sinus rhythm; septal HI, age undetermined, cannot be excluded; c/w the previous ECG the previous ST segment changes appear less prominent Cardiac Cath: please see official report Medical Necessity - Tobacco Use Smoking Status: Never smoker Tobacco Use: Non-smoker Assessment/Plan 1. Acute non-ST segment elevation [place] The patient is now s/p diagnostic cardiac catheterization. He was found to have significantly calcified coronary arteries with multivessel angiographically significant appearing CAD. He will need to continue medical therapy. He will need to be transferred to a tertiary care center for evaluation for percutaneous rotoblater therapy / PCI vs. CABG. This was discussed with the patient. He requested transferred to [facility], where his father was cared for, for further evaluation / care. 2. Hypertension The patient has a history of underlying hypertension. He will continue medical management as needed. 3. Diabetes mellitus with complications The patient does have diabetes mellitus. He has had multiple complications attributed to his diabetes mellitus. He will continue evaluation care per internal medicine. Comment: The above was discussed and reviewed with the patient. This note was generated with [employer] dictation software. It may contain incorrect words, spelling, and punctuation that were not noted in checking the note before signing.
--- NOTE | 2018-04-03 08:14 | PN.CARD_ITS ---
Subjectve: The patient denies ongoing chest pain / back pain. He states his breathing has improved. He is now s/p diagnostic cardiac catheterization. 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 Objective: Vital Signs Temp Pulse Resp BP Pulse Ox 98.9 F 95 23 H 107/67 97 04/03/18 05:56 04/03/18 05:56 04/03/18 05:56 04/03/18 05:56 04/03/18 05:56 Oxygen Flow Rate (L/min) 2 Oxygen Delivery Method Room Air Weight: 202 lb 13.204 oz Body Mass Index (BMI) 29.0 Intake and Output for Last 24 Hours 04/01/18 04/02/18 04/03/18 23:59 23:59 23:59 Intake Total 470 / 470 2710 / 2710 0 / 0 Output Total 150 / 150 Balance 470 / 470 2710 / 2710 -150 / -150 General: Awake, Alert, Oriented x 3, Cooperative, No Acute Distress Neck: No JVD Lungs: Clear to auscultation Cardiovascular: Regular Rhythm, Normal S1, Normal S2 Abdomen: Bowel Sounds Present, Soft, Non Tender Extremities: No Cyanosis, No Clubbing, No edema 04/02/18 05:58: B-Natriuretic Peptide 385.0 H 04/03/18 02:25: Urine Color Yellow, Urine Clarity Clear, Urine pH 6.0, Ur Specific [place] 1.015, Urine Protein 15 H, Urine Glucose (UA) Normal, Urine Ketones 5 H, Urine Occult Blood Negative, Urine Nitrite Negative, Urine Bilirubin Negative, Urine Urobilinogen Normal, Ur Leukocyte Esterase 25 H 04/03/18 05:45: WBC 14.1 H, RBC 3.66 L, Hgb 11.5 L, Hct 35.9 L, MCV 98.1 H, MCH 31.4, MCHC 32.0, RDW 13.7, RDW Differential 48.7 H, Plt Count 254, MPV 9.9, Immature Gran % (Auto) 0.700, Neut % (Auto) 76.1 H, Lymph % (Auto) 9.1 L, [place] % (Auto) 11.3 H, Eos % (Auto) 2.6, Baso % (Auto) 0.2, Absolute Neuts (auto) 10.7 H, Total Counted Not Reportable 04/03/18 05:45: Sodium 141, Potassium 3.7, Chloride 107, Carbon Dioxide 25.0, Anion Gap 9, BUN 30 H, Creatinine 0.90, Est GFR (MDRD) Af Amer 112, Est GFR ( MDRD) Non-Af 93, BUN/Creatinine Ratio 33.4 H, Glucose 99, Calcium 8.2 L 04/03/18 05:45: PT 15.3 H, INR 1.2, APTT 34.7 Rhythm: sinus rhythm EKG: sinus rhythm; septal LA, age undetermined, cannot be excluded; c/w the previous ECG the previous ST segment changes appear less prominent Cardiac Cath: please see official report Medical Necessity - Tobacco Use Smoking Status: Never smoker Tobacco Use: Non-smoker Assessment/Plan 1. Acute non-ST segment elevation LA The patient is now s/p diagnostic cardiac catheterization. He was found to have significantly calcified coronary arteries with multivessel angiographically significant appearing CAD. He will need to continue medical therapy. He will need to be transferred to a tertiary care center for evaluation for percutaneous rotoblater therapy / PCI vs. CABG. This was discussed with the patient. He requested transferred to [facility], where his father was cared for, for further evaluation / care. 2. Hypertension The patient has a history of underlying hypertension. He will continue medical management as needed. 3. Diabetes mellitus with complications The patient does have diabetes mellitus. He has had multiple complications attributed to his diabetes mellitus. He will continue evaluation care per internal medicine. Comment: The above was discussed and reviewed with the patient. This note was generated with [employer] dictation software. It may contain incorrect words, spelling, and punctuation that were not noted in checking the note before signing.
--- NOTE | 2018-04-03 08:27 | CL.D_ITS ---
Patient Name: RICK GEORGE Study Date: 04/03/2018 Performing: Mat Ring MD Ht: 70 inches 178 cm : 1960 Wt: 203.1 lbs 92 kg Age: 57 Gender: male BSA: 2.1 PROCEDURE(S) PERFORMED MO58-DEL/COR/LV CLINICAL PROFILE AND INDICATIONS Indications: Other: NSTEMI Heart Failure: None Stress/Imaging Stress/Image Study Performed: No Angina Classification Anginal Classification w/in 2 Weeks: CCS III CAD Presentations: Non-STEMI. CONCLUSIONS Elevated Left Ventricular End Diastolic Pressure Segmented LV systolic dysfunction- Mild LVEF: by LV gram 50 % [place] Multivessel CAD RECOMMENDATIONS Risk factor modification Medical therapy Transfer to a tertiary care center for evaluation for multivessel rotoblater therapy / PCI vs. CABG DESCRIPTION OF PROCEDURE The patient arrived to the procedure lab. The risks and benefits of the procedure as well as a full d escription of our services here and current unavailability of surgical backup were fully explained to the patient and/or their significant other prior to the catheterization. The Timeout was completed, verifying the correct patient and procedure. The patient's procedural site was prepped and draped in the usual fashion. Local anesthetic was given subcutaneously to right groin region with Lidocaine 2%. Using a modified Seldinger technique, arterial access was obtained via the right femoral artery, a 4 Fr sheath was inserted Left Coronary Artery selective angiography was performed in multiple views us ing a 4 Fr. JL5 catheter. Right Coronary Artery selective angiography was then performed in multiple views using a 4 Fr. 3DRC catheter. Left Ventriculography was performed in LYON projection using a 4 Fr . Pigtail catheter. LV to AO pullback pressures were then recorded.The arterial sheath was pulled and manual compression applied until hemostasis is achieved. CORONARY ANGIOGRAPHY DOMINANCE: Left Dominant LEFT HEART ASSESSMENT Left Ventricular Ejection Fraction: by LV Gram 50 % Anterior Hypokinesis. Apical Hypokinesis Elevated Left Ventricular End Diastolic Pressure LVEDP: 35 mmHg LEFT MAIN: Proximal: 25 % Stenosis LEFT ANTERIOR DECENDING ARTERY: Severe calcification PROX LAD: 85 % Stenosis MID LAD: Lon-75 % Stenosis CIRCUMFLEX ARTERY: Severe calcification PROX CIRC: 75 % Stenosis MID CIRC: 85 % Stenosis RAMUS: Small: Diffusely Disease Vessel RIGHT CORONARY ARTERY: MID RCA: 95 % Stenosis VALVE FINDINGS: Normal Aortic Valve function Normal Mitral Valve function AORTIC ROOT: Angiographically normal COMPLICATIONS No Complications PROCEDURE MEDICATIONS Versed 1 mg IV Oxygen: 2 L/min via nasal cannula SUMMARY OF HEMODYNAMIC DATA Time AIR REST ECG 07:23:21 AO 107/70 (88) SA 07:36:20 LV 100/12, 35 07:46:24 LV 101/12, 35 07:46:31 LV 98/25, 42 07:47:25 LV 98/19, 36 07:47:32 LVp 98/19, 36 07:47:37 AOp 94/56 (74) 07:47:42 Signed By Mat Ring MD On 04/03/2018 08:26:30 Mat Ring MD
[2018-04-03 08:35] LABS: Bedside Glucose 96 mg/dL (70-110)
[2018-04-03] MEDS: Baclofen 10 MG Tablet 20 MG PO ×3 (09:27→16:18)
[2018-04-03] MEDS: Gabapentin 800 MG Tablet PO ×3 (09:27→16:18)
[2018-04-03] MEDS: 0.9% Normal Saline 1,000 ML 75 ML IV (09:28)
--- NOTE | 2018-04-03 10:56 | PCM.DC.SUM ---
Discharge Date and Diagnosis - Problem List Patient Problems: Active and Suspected Problems (Last Reviewed 11/01/17 @ 16:03 by Wilmer Cartwright) NSTEMI (non-ST elevated myocardial infarction) (Acute) NSTEMI (non-ST elevated myocardial infarction) (Acute) CHF (congestive heart failure) (Acute) Date of Admission: 04/01/18 Date of Discharge: 04/03/18 - Primary Discharge Diagnosis Active and Suspected Problems (Last Reviewed 11/01/17 @ 16:03 by Wilmer Cartwright) NSTEMI w/ CAD w/ Underlying Diffuse Severe Appearing Multivessel Disease Acute Hypoxic Respiratory Failure (Hypoxia, increased RR, increased work of breathing) secondary to CHF exacerbation CHF, Acute Exacerbation, Diastolic Acute Clostridium Difficile Infection Chronic RLE Wound, present on admission, [facility] - Secondary Discharge Diagnosis Chronic Problems (Last Reviewed 11/01/17 @ 16:03 by Wilmer Cartwright) Other specified peripheral vascular diseases (Chronic) Xerosis of skin (Chronic) Non-compliance (Chronic) Skin ulcer of finger with fat layer exposed (Chronic) Right Index Finger 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) Hypertension (Chronic) Neuropathy (Chronic) Most likely severe diabetic neuropathy Workup [facility] Cerebrovascular disease (Chronic) Right thalamic stroke Hospital Course and Treatment Consultations 04/01/18 16:32 Consult: Onc/Wound/spout positioner Routine Comment: Cardiology Dr. Ring Operations: None Procedures: 2-D Echocardiogram, Cardiac catheterization, EKG Summary of Care Provided: The patient is a 57 y/o M w/ PMH: Diabetes mellitus type II w/ Neuropathy, Hx CVA (R Thalamic CVA), HTN, HLD, Obesity, Chronic Pain Syndrome, PAD/PVD s/p prior amputation R toe compounded by hx frostbite more recently [facility] who presents to the [facility] ED on 04/01/18 with history of ongoing dyspnea, worsening progressively over the last 48 hours with additionally chest discomfort, substernal without any radiation with additionally noted ongoing diarrhea. In the emergency room CTPA was performed with no evidence of acute PE but notable congestion and pleural effusions, EKG with no acute evidence of ischemia but noted initial troponin 0.020, BNP 564.5. Patient was admitted to the PCU, maintained on telemetry monitoring and initiated on treatment for CHF exacerbation and an STEMI with cardiology consultation and evaluation, obtained cardiac enzyme series, obtained serial EKGs, continued gentle IV lasix diuresis, monitored I/Os, maintained on intake restriction, continue medical therapy w/ asa, brillinta, noted statin allergy, BB, ACEI deferred given low BP and directed per Cardiology. 04/03/18 Cardiac catheterization performed per Dr. Ring with noted elevated LV end-diastolic pressure, mild segmented LV systolic dysfunction, LVEF 50%, [place] multivessel coronary disease with recommendations including risk factor modification, medical therapy and transfer to tertiary care center for evaluation for possible CABG. Additionally, patient upon admission did have continued diarrhea which she had noted had been ongoing for several days with C. difficile assay obtained and notable for Clostridium difficile patient initiation on oral Flagyl regimen. [facility] contacted for transfer and accepted by cardiology service for continued evaluation for coronary disease with an STEMI with underlying diffuse severe appearing multivessel disease, acute hypoxic respiratory failure secondary to acute CHF exacerbation presumed diastolic as well as acute Clostridium difficile infection. DAY OF DISCHARGE PROGRESS NOTE: Subjective: Patient without acute event overnight per self and nursing report. Patient denies fever, chills, nausea, emesis, abdominal pain, chest pain or dyspnea. He notes feeling improved since initial presentation with resolution of prior dyspnea. Reviewed findings of recent cardiac catheterization and patient states he is not surprised as he is a remarkable family history of coronary disease including both his father and his grandfather both of which received bypass surgeries. Patient agreeable to discharge to [facility], pending bed, accepted per Cardiology service. Objective: T 98.7, heart rate 84, BP 113/76, respiratory rate 16, 94% room air. Physical Examination: General: awake, alert, oriented x 3 and cooperative, seated upright in the bed, NAD. Skin: normal color, turgor, no icterus, cyanosis. HEENT: AT/NC, EOMI, PERRLA, MMM. Lungs: Improved BS, improved effort, improved rales BL bases, no ronchi or wheezing. Heart: Regular rate and rhythm; no gallop, rub audible. Abdomen: soft, NTTP, ND, normal BS. Extremities: no cyanosis, clubbing, trace BL LE edema. Neurological: patient awake, alert, oriented x 3; cognitive function appears intact upon questioning,; pupils equally reactive to light and accomodation; cranial nerves II-XII grossly normal, moving all 4 extremities, strength moderately globally decreased. Psychiatric: affect appears normal, no acute evidence of depressive or anxiety feelings. Assessment and Plan: Please see hospital summary above. Home Medications: Medications to take at Discharge Tizanidine HCl [Zanaflex] 4 mg PO 4X/DAY PRN PRN 11/07/14 Ammonium Lactate [Amlactin] 57 gm TP PRN PRN 10/04/17 Baclofen 20 mg PO TID 10/04/17 Celecoxib [Celebrex] 200 mg PO DAILY 10/04/17 Cholecalciferol (Vitamin D3) [Vitamin D3] 5,000 unit PO DAILY 10/04/17 Levomefolate/B6/B12/Algal Oil [Metanx Capsule] 1 each PO DAILY 10/04/17 Nortriptyline HCl 50 mg PO QHS 10/04/17 Aspirin 325 mg PO DAILY@0800 10/21/17 Amlodipine [Norvasc] 5 mg PO DAILY 04/01/18 Biotin 1 mg PO DAILY 04/01/18 Cyanocobalamin (Vitamin B-12) [Vitamin B-12] 1,000 mcg PO 04/01/18 Desonide 0.05% [Desowen 0.05% Cream] 1 applic TOPICAL BID 04/01/18 Diflorasone Diacetate [Psorcon] 1 applicatio TP BID PRN 04/01/18 Gabapentin [Neurontin] 900 mg PO TIDCM 04/01/18 Insulin Glargine,Hum.rec.anlog [Basaglar Kwikpen U-100] 20 unit SQ QHS 04/01/18 Insulin Lispro [Humalog KwikPen] See Protocol SQ TIDCM 04/01/18 Ketoconazole [Nizoral] 1 applic TOPICAL DAILY 04/01/18 Lisinopril [Zestril] 30 mg PO DAILY 04/01/18 Magnesium 250 mg PO DAILY 04/01/18 Primary Care Physician: Avery Escalante DO [Primary Care Provider] - Patient Instructions: Self-Care for Strains and Sprains Disposition: Acute care Hospital Minutes spent on discharge:: 35 Patient Condition:: Stable Medical Necessity - Tobacco Use Smoking Status: Never smoker Tobacco Use: Non-smoker Meaningful Use Info Meaningful Use Diagnoses (Choose all that apply): AMI, CHF - AMI Aspirin given w/in 24hrs of arrival?: Yes ASA at discharge?: Yes Statins at discharge?: No Reason statins not ordered:: Allergy Suman/ARB at discharge?: No Reason Suman/ARB not ordered:: Hypotension Beta Carter at discharge?: Yes Done w/ Acute ND measure.: Yes - CHF SUMAN/ARB ordered at discharge?: No Reason SUMAN/ARB not ordered?: Hypotension Documented LVEF (%): 50 Code Visit Inpatient E&M: 04506 Disch Hosp
--- NOTE | 2018-04-03 11:26 | DS.PCM_ITS ---
Discharge Date and Diagnosis - Problem List Patient Problems: Active and Suspected Problems (Last Reviewed 11/01/17 @ 16:03 by Wilmer Cartwright) NSTEMI (non-ST elevated myocardial infarction) (Acute) NSTEMI (non-ST elevated myocardial infarction) (Acute) CHF (congestive heart failure) (Acute) Date of Admission: 04/01/18 Date of Discharge: 04/03/18 - Primary Discharge Diagnosis Active and Suspected Problems (Last Reviewed 11/01/17 @ 16:03 by Wilmer Cartwright) NSTEMI w/ CAD w/ Underlying Diffuse Severe Appearing Multivessel Disease Acute Hypoxic Respiratory Failure (Hypoxia, increased RR, increased work of breathing) secondary to CHF exacerbation CHF, Acute Exacerbation, Diastolic Acute Clostridium Difficile Infection Chronic RLE Wound, present on admission, [facility] - Secondary Discharge Diagnosis Chronic Problems (Last Reviewed 11/01/17 @ 16:03 by Wilmer Cartwright) Other specified peripheral vascular diseases (Chronic) Xerosis of skin (Chronic) Non-compliance (Chronic) Skin ulcer of finger with fat layer exposed (Chronic) Right Index Finger 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) Hypertension (Chronic) Neuropathy (Chronic) Most likely severe diabetic neuropathy Workup [facility] Cerebrovascular disease (Chronic) Right thalamic stroke Hospital Course and Treatment Consultations 04/01/18 16:32 Consult: Onc/Wound/mine patrol Routine Comment: Cardiology Dr. Ring Operations: None Procedures: 2-D Echocardiogram, Cardiac catheterization, EKG Summary of Care Provided: The patient is a 57 y/o M w/ PMH: Diabetes mellitus type II w/ Neuropathy, Hx CVA (R Thalamic CVA), HTN, HLD, Obesity, Chronic Pain Syndrome, PAD/PVD s/p prior amputation R toe compounded by hx frostbite more recently [facility] who presents [facility] ED on with history of ongoing dyspnea, worsening progressively over the last 48 hours with additionally chest discomfort, substernal without any radiation with additionally noted ongoing diarrhea. In the emergency room CTPA was performed with no evidence of acute PE but notable congestion and pleural effusions, EKG with no acute evidence of ischemia but noted initial troponin 0.020, BNP 564.5. Patient was admitted to the PCU, maintained on telemetry monitoring and initiated on treatment for CHF exacerbation and an STEMI with cardiology consultation and evaluation, obtained cardiac enzyme series, obtained serial EKGs, continued gentle IV lasix diuresis, monitored I/Os, maintained on intake restriction, continue medical therapy w/ asa, brillinta, noted statin allergy, BB, ACEI deferred given low BP and directed per Cardiology. 04/03/18 Cardiac catheterization performed per Dr. Ring with noted elevated LV end- diastolic pressure, mild segmented LV systolic dysfunction, LVEF 50%, [place] multivessel coronary disease with recommendations including risk factor modification, medical therapy and transfer to tertiary care center for evaluation for possible CABG. Additionally, patient upon admission did have continued diarrhea which she had noted had been ongoing for several days with C. difficile assay obtained and notable for Clostridium difficile patient initiation on oral Flagyl regimen. [facility] contacted for transfer and accepted by cardiology service for continued evaluation for coronary disease with an STEMI with underlying diffuse severe appearing multivessel disease, acute hypoxic respiratory failure secondary to acute CHF exacerbation presumed diastolic as well as acute Clostridium difficile infection. DAY OF DISCHARGE PROGRESS NOTE: Subjective: Patient without acute event overnight per self and nursing report. Patient denies fever, chills, nausea, emesis, abdominal pain, chest pain or dyspnea. He notes feeling improved since initial presentation with resolution of prior dyspnea. Reviewed findings of recent cardiac catheterization and patient states he is not surprised as he is a remarkable family history of coronary disease including both his father and his grandfather both of which received bypass surgeries. Patient agreeable to discharge to [facility], pending bed, accepted per Cardiology service. Objective: T 98.7, heart rate 84, BP 113/76, respiratory rate 16, 94% room air. Physical Examination: General: awake, alert, oriented x 3 and cooperative, seated upright in the bed, NAD. Skin: normal color, turgor, no icterus, cyanosis. HEENT: AT/NC, EOMI, PERRLA, MMM. Lungs: Improved BS, improved effort, improved rales BL bases, no ronchi or wheezing. Heart: Regular rate and rhythm; no gallop, rub audible. Abdomen: soft, NTTP, ND, normal BS. Extremities: no cyanosis, clubbing, trace BL LE edema. Neurological: patient awake, alert, oriented x 3; cognitive function appears intact upon questioning,; pupils equally reactive to light and accomodation; cranial nerves II-XII grossly normal, moving all 4 extremities, strength moderately globally decreased. Psychiatric: affect appears normal, no acute evidence of depressive or anxiety feelings. Assessment and Plan: Please see hospital summary above. Home Medications: Medications to take at Discharge Tizanidine HCl [Zanaflex] 4 mg PO 4X/DAY PRN PRN 11/07/14 Ammonium Lactate [Amlactin] 57 gm TP PRN PRN 10/04/17 Baclofen 20 mg PO TID 10/04/17 Celecoxib [Celebrex] 200 mg PO DAILY 10/04/17 Cholecalciferol (Vitamin D3) [Vitamin D3] 5,000 unit PO DAILY 10/04/17 Levomefolate/B6/B12/Algal Oil [Metanx Capsule] 1 each PO DAILY 10/04/17 Nortriptyline HCl 50 mg PO QHS 10/04/17 Aspirin 325 mg PO DAILY@0800 10/21/17 Amlodipine [Norvasc] 5 mg PO DAILY 04/01/18 Biotin 1 mg PO DAILY 04/01/18 Cyanocobalamin (Vitamin B-12) [Vitamin B-12] 1,000 mcg PO 04/01/18 Desonide 0.05% [Desowen 0.05% Cream] 1 applic TOPICAL BID 04/01/18 Diflorasone Diacetate [Psorcon] 1 applicatio TP BID PRN 04/01/18 Gabapentin [Neurontin] 900 mg PO TIDCM 04/01/18 Insulin Glargine,Hum.rec.anlog [Basaglar Kwikpen U-100] 20 unit SQ QHS 04/01/18 Insulin Lispro [Humalog KwikPen] See Protocol SQ TIDCM 04/01/18 Ketoconazole [Nizoral] 1 applic TOPICAL DAILY 04/01/18 Lisinopril [Zestril] 30 mg PO DAILY 04/01/18 Magnesium 250 mg PO DAILY 04/01/18 Primary Care Physician: Avery Escalante DO [Primary Care Provider] - Patient Instructions: Self-Care for Strains and Sprains Disposition: Acute care Hospital Minutes spent on discharge:: 35 Patient Condition:: Stable Medical Necessity - Tobacco Use Smoking Status: Never smoker Tobacco Use: Non-smoker Meaningful Use Info Meaningful Use Diagnoses (Choose all that apply): AMI, CHF - AMI Aspirin given w/in 24hrs of arrival?: Yes ASA at discharge?: Yes Statins at discharge?: No Reason statins not ordered:: Allergy Suman/ARB at discharge?: No Reason Suman/ARB not ordered:: Hypotension Beta Carter at discharge?: Yes Done w/ Acute [place] measure.: Yes - CHF SUMAN/ARB ordered at discharge?: No Reason SUMAN/ARB not ordered?: Hypotension Documented LVEF (%): 50 Code Visit Inpatient E&M: 27767 Disch Hosp
[2018-04-03] MEDS: Magnesium Oxide 400 MG Tablet PO (11:29)
[2018-04-03] MEDS: Furosemide 20 MG/2 ML VIAL IV (11:29)
[2018-04-03] MEDS: Carvedilol 3.125 MG TABLET PO ×2 (11:29→21:12)
[2018-04-03] MEDS: Cyanocobalamin 500 MCG Tablet 1000 MCG PO (11:29)
[2018-04-03] MEDS: Glucerna Shake 120 ML LIQUID PO (11:29)
[2018-04-03 11:30] LABS: Bedside Glucose 105 mg/dL (70-110)
--- NOTE | 2018-04-03 11:43 | CASEMGMT ---
According to [facility] website, the following are in-network tertiary facilities: [facility], [place], [facility], [facility], [facility], [place], [facility], and . Boubacar ALCARAZ CM
[2018-04-03 13:01] LABS: Pathologist Review Reviewed
[2018-04-03 13:03] LABS: Pathologist Review Reviewed
--- NOTE | 2018-04-03 14:21 | PN_ITS ---
Progress Note Subjective: Patient without acute event overnight per self and nursing report. Patient denies fever, chills, nausea, emesis, abdominal pain, chest pain or dyspnea. He notes feeling improved since initial presentation with resolution of prior dyspnea. Reviewed findings of recent cardiac catheterization and patient states he is not surprised as he is a remarkable family history of coronary disease including both his father and his grandfather both of which received bypass surgeries. Patient agreeable to discharge to [facility], pending bed, accepted per Cardiology service. Objective: T 98.7, heart rate 84, BP 113/76, respiratory rate 16, 94% room air. Physical Examination: General: awake, alert, oriented x 3 and cooperative, seated upright in the bed, NAD. Skin: normal color, turgor, no icterus, cyanosis. HEENT: AT/NC, EOMI, PERRLA, MMM. Lungs: Improved BS, improved effort, improved rales BL bases, no ronchi or wheezing. Heart: Regular rate and rhythm; no gallop, rub audible. Abdomen: soft, NTTP, ND, normal BS. Extremities: no cyanosis, clubbing, trace BL LE edema. Neurological: patient awake, alert, oriented x 3; cognitive function appears intact upon questioning,; pupils equally reactive to light and accomodation; cranial nerves II-XII grossly normal, moving all 4 extremities, strength moderately globally decreased. Psychiatric: affect appears normal, no acute evidence of depressive or anxiety feelings. Assessment and Plan: The patient is a 57 y/o M w/ PMH: Diabetes mellitus type II w/ Neuropathy, Hx CVA (R Thalamic CVA), HTN, HLD, Obesity, Chronic Pain Syndrome, PAD/PVD s/p prior amputation R toe compounded by hx frostbite more recently [facility] who presents to the [facility] ED on with history of ongoing dyspnea, worsening progressively over the last 48 hours with additionally chest discomfort, substernal without any radiation with additionally noted ongoing diarrhea. In the emergency room CTPA was performed with no evidence of acute PE but notable congestion and pleural effusions, EKG with no acute evidence of ischemia but noted initial troponin 0.020, BNP 564.5. Patient was admitted to the PCU, maintained on telemetry monitoring and initiated on treatment for CHF exacerbation and an STEMI with cardiology consultation and evaluation, obtained cardiac enzyme series, obtained serial EKGs, continued gentle IV lasix diuresis, monitored I/Os, maintained on intake restriction, continue medical therapy w/ asa, brillinta, noted statin allergy, BB, ACEI deferred given low BP and directed per Cardiology. 04/03/18 Cardiac catheterization performed per Dr. Ring with noted elevated LV end- diastolic pressure, mild segmented LV systolic dysfunction, LVEF 50%, hoopa multivessel coronary disease with recommendations including risk factor modification, medical therapy and transfer to tertiary care center for evaluation for possible CABG. Additionally, patient upon admission did have continued diarrhea which she had noted had been ongoing for several days with C. difficile assay obtained and notable for Clostridium difficile patient initiation on oral Flagyl regimen. [facility] contacted for transfer and accepted by cardiology service for continued evaluation for coronary disease with an STEMI with underlying diffuse severe appearing multivessel disease, acute hypoxic respiratory failure secondary to acute CHF exacerbation presumed diastolic as well as acute Clostridium difficile infection.
[2018-04-03] MEDS: Insulin Lispro 100 UNIT/ML INSULN.PEN SQ ×2 (16:19→21:12)
[2018-04-03 16:21] LABS: Bedside Glucose 170 mg/dL (70-110)
[2018-04-03] MEDS: Acetaminophen 325 MG Tablet 650 MG PO (19:39)
--- NOTE | 2018-04-03 20:00 | NURSING ---
Report called to LISSA Santiago at [facility].
[2018-04-03] MEDS: Nortriptyline 25 MG Capsule 50 MG PO (21:12)
--- NOTE | 2018-04-03 21:18 | NURSING ---
BP 121/77 and HR 91
--- NOTE | 2018-04-03 21:23 | NURSING ---
Blood sugar was 196; Medicated per MAR
[2018-04-03 21:25] LABS: Bedside Glucose 196 mg/dL (70-110)
== END 2018-04-03 21:37 | disposition short-term general hospital (02) | DRG 120 ==
LOC: ED 12:33 → PCU 16:13
PROVIDERS: Internal Medicine Cardiovascular Disease; Admitting Provider Internal Medicine; Emergency Provider Emergency Medicine; Family Provider Student in an Organized Health Care Education/Training Program; PCP Student in an Organized Health Care Education/Training Program; Visit Provider Family Medicine
DX: I21.4 Non-ST elevation (NSTEMI) myocardial infarction (principal); J96.01 Acute respiratory failure with hypoxia; A04.72 Enterocolitis due to Clostridium difficile, not specified as recurrent; I11.0 Hypertensive heart disease with heart failure; I50.33 Acute on chronic diastolic (congestive) heart failure; L97.512 Non-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ulcer of other part of right foot with fat layer exposed; E11.42 Type 2 diabetes mellitus with diabetic polyneuropathy; I25.10 Atherosclerotic heart disease of native coronary artery without angina pectoris; Z79.4 Long term (current) use of insulin; Z86.73 Personal history of transient ischemic attack (TIA), and cerebral infarction without residual deficits; Z89.429 Acquired absence of other toe(s), unspecified side; Z82.49 Family history of ischemic heart disease and other diseases of the circulatory system; E11.621 Type 2 diabetes mellitus with foot ulcer
CPT/HCPCS: 11042; 36415; 71101; 71275; 72072; 72100; 73502; 80048; 80061; 81002; 82962; 83880; 84484; 85025; 85027; 85610; 85730; 87493; 87506; 93005; 93458; 94640; 99152; 99153; 99251; 99285; J7030; Q9967; A4216; C1769; C1894; G0463; J1940

== ENCOUNTER 2018-06-14 11:45 | Outpatient (RCR) | payer MEDICAID, SELFPAY ==
[2018-05-24 11:44] VITALS: BP 105/61; PULSE 79; RESP 14; TEMP 36.6; BMI 27.2
--- NOTE | 2018-05-24 13:31 | HP.PCM_ITS ---
(1) Nonhealing nonsurgical wound with fat layer exposed Status: Acute Current Visit: Yes Code(s): T14.8XXA - Other injury of unspecified body region, initial encounter (2) Diabetes mellitus type 2 with complications Status: Chronic Current Visit: Yes Code(s): E11.8 - Type 2 diabetes mellitus with unspecified complications (3) Ulcer of right foot with fat layer exposed Status: Resolved Current Visit: No Code(s): L97.512 - Non-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ulcer of other part of right foot with fat layer exposed History of Present Illness Date of Service: 05/24/18 Chief Complaint: Nonhealing postsurgical chest wound. History of Wound: Mr. Espinoza is a 58-year-old with past medical history as stated above who is well-known to the wound center. He was last seen here about 6 weeks ago when he was being managed for his right foot wound and hand ulcers. He however had CABG done due to an NSTEMI about 5 weeks ago. He now presents with nonhealing of the tube site and postsurgical incision site. He has applied ? Ointment given by his physician however, he has not noted any significant improvement in the wounds and so he presented here. He also attests to purulent discharge from his lateral chest wound. He has been on antibiotics with his last dose on Tuesday prior to presentation. He otherwise denies chills, fever or feeling of unwell. He is scheduled to follow-up with his cardiothoracic surgeon at the [facility] tomorrow. Past Medical History Past Medical History: Chronic Problems (Last Reviewed 11/01/17 @ 16:03 by Wilmer Cartwright) Other specified peripheral vascular diseases (Chronic) Xerosis of skin (Chronic) Non-compliance (Chronic) Skin ulcer of finger with fat layer exposed (Chronic) Right Index Finger 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) Hypertension (Chronic) Neuropathy (Chronic) Most likely severe diabetic neuropathy Workup [facility] Cerebrovascular disease (Chronic) Right thalamic stroke Surgical History: - - Toe amputations RLE Allergies/Adverse Reactions: Allergies atorvastatin Adverse Reaction (Verified 06/16/18 12:16) Unknown metformin Adverse Reaction (Verified 04/01/18 12:16) Diarrhea Home Medications: Ambulatory Orders Medication Instructions Recorded Tizanidine HCl [Zanaflex] 4 mg PO 4X/DAY PRN PRN 11/07/14 Ammonium Lactate [Amlactin] 57 gm TP PRN PRN 10/04/17 Baclofen 20 mg PO TID 10/04/17 Celecoxib [Celebrex] 200 mg PO DAILY 10/04/17 Cholecalciferol (Vitamin D3) 5,000 unit PO DAILY 10/04/17 [Vitamin D3] Levomefolate/B6/B12/Algal Oil 1 each PO DAILY 10/04/17 [Metanx Capsule] Nortriptyline HCl 50 mg PO QHS 10/04/17 Aspirin 325 mg PO DAILY@0800 10/21/17 Amlodipine [Norvasc] 5 mg PO DAILY 04/01/18 Biotin 1 mg PO DAILY 04/01/18 Cyanocobalamin (Vitamin B-12) 1,000 mcg PO 04/01/18 [Vitamin B-12] Desonide 0.05% [Desowen 0.05% 1 applic TOPICAL BID 04/01/18 Cream] Diflorasone Diacetate [Psorcon] 1 applicatio TP BID PRN 04/01/18 Gabapentin [Neurontin] 900 mg PO TIDCM 04/01/18 Insulin Glargine,Hum.rec.anlog 20 unit SQ QHS 04/01/18 [Basaglar Kwikpen U-100] Insulin Lispro [Humalog KwikPen] See Protocol SQ TIDCM 04/01/18 Ketoconazole [Nizoral] 1 applic TOPICAL DAILY 04/01/18 Lisinopril [Zestril] 30 mg PO DAILY 04/01/18 Magnesium 250 mg PO DAILY 04/01/18 Aspirin [Aspir-Low] 81 mg PO DAILY MDD 2 tabs 05/24/18 Furosemide [Lasix] 20 mg PO DAILY 05/24/18 Metoprolol Tartrate 25 mg PO Q12H PRN MDD 1.5 tabs 05/24/18 Rosuvastatin Calcium 10 mg PO CONT 05/24/18 - Family History Maternal Family History: Family History (Last Reviewed 11/01/17 @ 16:03 by Wilmer Cartwright) Other Arthritis Hypertension Diabetes Paternal Family History: Family History (Last Reviewed 11/01/17 @ 16:03 by Wilmer Cartwright) Other Arthritis Hypertension Diabetes Smoking Status: Never smoker Review of Systems Constitutional: Denies: Anorexia, Chills, Fever Eyes: Denies: Blurred vision, Pain, Redness HEENT: Denies: Difficulty Hearing, Difficulty Swallowing Cardiovascular: Denies: Chest Pain, Palpitations Respiratory: Denies: Hemoptysis Gastrointestinal: Denies: Abdominal Pain, Hematemesis, Vomiting Genitourinary: Denies: Hematuria Skin: Denies: Jaundice - Physical Exam Vital Signs Temp Pulse Resp BP 97.8 F 79 14 105/61 05/24/18 11:44 05/24/18 11:44 05/24/18 11:44 05/24/18 11:44 General: Alert, Oriented x3, Cooperative, No apparent distress HEENT: Atraumatic Oral: Moist Mucosa Neck: Supple Lungs: Normal air movement Cardiovascular: Regular rate Abdomen: Non Tender Extremities: No cyanosis Skin: Ulcer/ Wound Wound Measurements and Assessment WC - Nurse 1 - General Ulcer Measurement Start: 05/24/18 11:44 Freq: Status: Active Protocol: Activity Type Activity Date Activity User E-Sign Co-Sign Detail Recorded Client Recorded Date Recorded By Document 05/24/18 11:44 [id number] 05/24/18 11:59 05/24/18 11:44 Wound Center Nurse 1 [Ulcer Assessment] #10 LEFT LOWER MIDCLAVICULAR POST OP -Combined with other wound No -Current Size (cm) - Length 0.1 -Current Size (cm) - Width 1.3 -Current Size (cm) - Depth 0.1 -Total Square Cm 0.13 -Date of Last Picture (Recall this 05/24/18 field) -Photo Taken Yes -Epithelialization Medium 34-66% -Tunneling No -Undermining/Tunneling No -Circular Undermining No -Exudate Amt Small (1-33%) -Exudate Type Yellow/Green -Wound Margin Thickened -Granulation Amt None Present (0 %) -Granulation Quality N/A -Slough/Fibrin Yes -Necrosis Amt None Present (0 %) -Necrotic Tissue Type Adherent Slough -Structure Exposed None/Limited to Skin Breakdown -Texture (Mechelle-wound Skin Appearance) No Abnormality Assessed -Moisture (Mechelle-wound Skin Appearance No Abnormality ) Assessed -Color (Mechelle-wound Skin Appearance) No Abnormality Assessed -Temperature (Mechelle-wound Skin No Abnormality Appearance) (Pt Warm) -Tenderness on Palpation (Mechelle-wound Yes Skin Appearance) -Ulcer Cleansing Rinsed/ Irrigated with Saline -Foul Odor after Cleansing No -Anesthetic Used 4% Lidocaine Solution #9 mid-sternal, post op incision -Combined with other wound No -Current Size (cm) - Length 0.3 -Current Size (cm) - Width 0.1 -Current Size (cm) - Depth 0.1 -Total Square Cm 0.03 -Date of Last Picture (Recall this 05/24/18 field) -Photo Taken Yes -Epithelialization Small 1-33% -Tunneling No -Undermining/Tunneling No -Circular Undermining No -Exudate Amt None Present (0 %) -Wound Margin Thickened -Granulation Amt None Present (0 %) -Granulation Quality N/A -Slough/Fibrin Yes -Necrosis Amt None Present (0 %) -Necrotic Tissue Type Adherent Slough -Structure Exposed None/Limited to Skin Breakdown -Texture (Mechelle-wound Skin Appearance) No Abnormality Assessed -Moisture (Mechelle-wound Skin Appearance No Abnormality ) Assessed -Color (Mechelle-wound Skin Appearance) No Abnormality -Temperature (Mechelle-wound Skin No Abnormality Appearance) (Pt Warm) -Tenderness on Palpation (Mechelle-wound No Skin Appearance) -Ulcer Cleansing Rinsed/ Irrigated with Saline -Foul Odor after Cleansing No -Anesthetic Used 4% Lidocaine Solution #8- RT HEEL PLANTAR ASPECT -Current Size (cm) - Length 0.1 -Current Size (cm) - Width 0.1 -Current Size (cm) - Depth 0.1 -Total Square Cm 0.01 -Date of Last Picture (Recall this 05/24/18 field) -Photo Taken Yes -Epithelialization Large 67-100% [Edema Assessment] -Lower Limb Edema Present NA WC - Nurse 2 - General Ulcer CM Notes Start: 05/24/18 11:44 Freq: Status: Active Protocol: Activity Type Activity Date Activity User E-Sign Co-Sign Detail Recorded Client Recorded Date Recorded By Document 05/24/18 12:17 MW [id number] 05/24/18 12:31 MW 05/24/18 12:17 Wound Center Nurse 2 [Procedure/Treatment] #10 LEFT LOWER MIDCLAVICULAR POST OP -Time 12:27 -Correct Patient Yes -Correct Side, Site, Position Yes -Correct Procedure Yes -Procedure Performed Yes -Type of Procedure Debridement -Clinical Debridement Subcutaneous -Post Debridement Size (cm) - Length 1.0 -Post Debridement Size (cm) - Width 1.2 -Post Debridement Size (cm) - Depth 0.2 -Total Square Cm 1.20 -Wound/Ulcer Outcome Not Healed -Ulcer Cleansing Rinsed/ Irrigated with Saline -Foul Odor after Cleansing No -Bioengineered Tissue No -Bleeding Controlled with Pressure -Treatment Response Procedure Tolerated Well #9 mid-sternal, post op incision -Time 12:28 -Correct Patient Yes -Correct Side, Site, Position Yes -Correct Procedure Yes -Procedure Performed Yes -Type of Procedure Debridement -Clinical Debridement Subcutaneous -Post Debridement Size (cm) - Length 1.0 -Post Debridement Size (cm) - Width 0.7 -Post Debridement Size (cm) - Depth 0.2 -Total Square Cm 0.70 -Wound/Ulcer Outcome Not Healed -Ulcer Cleansing Rinsed/ Irrigated with Saline -Foul Odor after Cleansing No -Bioengineered Tissue No -Bleeding Controlled with Pressure -Treatment Response Procedure Tolerated Well #8- RT HEEL PLANTAR ASPECT -Time 12:17 -Correct Patient Yes -Correct Side, Site, Position Yes -Correct Procedure Yes -Procedure Performed No -Post Debridement Size (cm) - Length 0 -Post Debridement Size (cm) - Width 0 -Post Debridement Size (cm) - Depth 0 -Total Square Cm 0 -Wound/Ulcer Outcome Healed- Epithelialized [See Physician Procedure note for Specifics] Pain Scale: 0-10 Numeric [Pain] -Is Patient Pain Free? Yes Musculoskeletal: No Muscle Wasting Neurological: Cranial nerves II-XII grossly intact Psych/Mental Status: Normal Affect Debridement Note Post-Debridement Measurements/Treatment WC - Nurse 2 - General Ulcer CM Notes Start: 05/24/18 11:44 Freq: Status: Active Protocol: Activity Type Activity Date Activity User E-Sign Co-Sign Detail Recorded Client Recorded Date Recorded By Document 05/24/18 12:17 MW [id number] 05/24/18 12:31 MW 05/24/18 12:17 Wound Center Nurse 2 #10 LEFT LOWER MIDCLAVICULAR POST OP -Time 12:27 -Correct Patient Yes -Correct Side, Site, Position Yes -Correct Procedure Yes -Procedure Performed Yes -Type of Procedure Debridement -Clinical Debridement Subcutaneous -Post Debridement Size (cm) - Length 1.0 -Post Debridement Size (cm) - Width 1.2 -Post Debridement Size (cm) - Depth 0.2 -Total Square Cm 1.20 -Wound/Ulcer Outcome Not Healed -Ulcer Cleansing Rinsed/ Irrigated with Saline -Foul Odor after Cleansing No -Bioengineered Tissue No -Bleeding Controlled with Pressure -Treatment Response Procedure Tolerated Well #9 mid-sternal, post op incision -Time 12:28 -Correct Patient Yes -Correct Side, Site, Position Yes -Correct Procedure Yes -Procedure Performed Yes -Type of Procedure Debridement -Clinical Debridement Subcutaneous -Post Debridement Size (cm) - Length 1.0 -Post Debridement Size (cm) - Width 0.7 -Post Debridement Size (cm) - Depth 0.2 -Total Square Cm 0.70 -Wound/Ulcer Outcome Not Healed -Ulcer Cleansing Rinsed/ Irrigated with Saline -Foul Odor after Cleansing No -Bioengineered Tissue No -Bleeding Controlled with Pressure -Treatment Response Procedure Tolerated Well #8- RT HEEL PLANTAR ASPECT -Time 12:17 -Correct Patient Yes -Correct Side, Site, Position Yes -Correct Procedure Yes -Procedure Performed No -Post Debridement Size (cm) - Length 0 -Post Debridement Size (cm) - Width 0 -Post Debridement Size (cm) - Depth 0 -Total Square Cm 0 -Wound/Ulcer Outcome Healed- Epithelialized Pain Scale: 0-10 Numeric Is Patient Pain Free? Yes Wound debrided: Mid sternal Wound Grade/Stage: Grade II Type of Debridement: Excisional debridement Anesthesia Used: 4% Lidocaine Solution Depth: Down to and including healthy tissue, in the subcutaneous layer Percentage of wound debrided: 100 Instrument Used: 5mm curette Tissue Removed: Slough and devitalized tissue Severity: Fat Layer Exposed Amount of bleeding with debridement: Mild Bleeding Controlled with: Pressure Patient tolerated procedure well - Additional Wound Wound debrided: Midclavicular (inferior) Wound Grade/Stage: Stage II Type of Debridement: Excisional debridement Anesthesia Used: 4% Lidocaine Solution Depth: Down to and including healthy tissue, in the subcutaneous layer Percentage of wound debrided: 100 Instrument Used: 5mm curette Tissue Removed: Slough and devitalized tissue Severity: Fat Layer Exposed Amount of bleeding with debridement: Mild Bleeding Controlled with: Pressure Patient tolerated procedure: Patient tolerated procedure well Assessment/Plan Active Problems (Last Reviewed 11/01/17 @ 16:03 by Wilmer Cartwright) Nonhealing nonsurgical wound with fat layer exposed (Acute) Diabetes mellitus type 2 with complications (Chronic) Assessment: Nonhealing post surgical chest wounds. Right Middle and Ring finger ulcers with Fat layer exposed - Healed. Right Index finger ulcer possible due to vasoconstriction/raynaud's - Healed. Right Foot traumatic wound /ulcer with fat layer exposed -Healed. Plan: He presents with new nonhealing postsurgical wounds as detailed above. His right foot and hand ulcers have now healed. ? Suture material removed from midsternal wound. Left midclavicular wound concerning for infection due to purulent drainage noted. Culture taken. Debridement done as documented above, procedure was well-tolerated. Due to still significant slough, will start with Santyl. Apply nickel thick amount daily cover with gauze. Scheduled to follow-up with his cardiothoracic surgeon tomorrow. Increased protein intake/supplements also recommended. Optimal blood sugar control recommended. Advised to follow-up with PCP. 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 He was advised to call with any questions or concerns. This note was generated with leemailation software. It may contain incorrect words, spelling, and punctuation that were not noted in checking the note before signing.
[2018-05-31 09:55] VITALS: BP 104/72; PULSE 91; RESP 16; TEMP 36.6; BMI 27.2
--- NOTE | 2018-05-31 10:34 | PCM.WC.PN ---
(1) Nonhealing nonsurgical wound with fat layer exposed Status: Acute Current Visit: Yes Code(s): T14.8XXA - Other injury of unspecified body region, initial encounter (2) Diabetes mellitus type 2 with complications Status: Chronic Current Visit: Yes Code(s): E11.8 - Type 2 diabetes mellitus with unspecified complications Type of Wound Date of Service: 05/31/18 Chief Complaint: Nonhealing postsurgical chest wound. History of Wound: Mr. Espinoza is a 58-year-old with past medical history as stated above who is well-known to the wound center. He was last seen here about 6 weeks ago when he was being managed for his right foot wound and hand ulcers. He however had CABG done due to an NSTEMI about 5 weeks ago. He now presents with nonhealing of the tube site and postsurgical incision site. He has applied ? Ointment given by his physician however, he has not noted any significant improvement in the wounds and so he presented here. He also attests to purulent discharge from his lateral chest wound. He has been on antibiotics with his last dose on Tuesday prior to presentation. He otherwise denies chills, fever or feeling of unwell. He is scheduled to follow-up with his cardiothoracic surgeon at the [facility] tomorrow. Progress of Wound: Stable. No new complaints at this time. - Physical Exam Vital Signs Temp Pulse Resp BP 98 F 91 16 104/72 05/31/18 09:55 05/31/18 09:55 05/31/18 09:55 05/31/18 09:55 General: Alert, Oriented x3, Cooperative, No apparent distress HEENT: Atraumatic Oral: Moist Mucosa Neck: Supple Lungs: Normal air movement Abdomen: Non Tender Extremities: No cyanosis Wound Measurements and Assessment WC - Nurse 1 - General Ulcer Measurement Start: 05/24/18 11:44 Freq: Status: Active Protocol: Activity Type Activity Date Activity User E-Sign Co-Sign Detail Recorded Client Recorded Date Recorded By Document 05/31/18 09:55 [facility] [id number] 05/31/18 10:02 [facility] 05/31/18 09:55 Wound Center Nurse 1 [Ulcer Assessment] #10 LEFT LOWER MIDCLAVICULAR POST OP -Combined with other wound No -Current Size (cm) - Length 1 -Current Size (cm) - Width 1.9 -Current Size (cm) - Depth 0.1 -Total Square Cm 1.9 -Photo Taken No -Epithelialization None Present -Tunneling No -Undermining/Tunneling No -Circular Undermining No -Exudate Amt Small (1-33%) -Exudate Type Serosanguineous -Wound Margin Distinct, Outline Attached -Granulation Amt None Present (0 %) -Slough/Fibrin Yes -Necrosis Amt Large (67-100%) -Necrotic Tissue Type Adherent Slough -Structure Exposed N/A -Texture (Mechelle-wound Skin Appearance) Scarring -Moisture (Mechelle-wound Skin Appearance Assessed ) -Color (Mechelle-wound Skin Appearance) Assessed -Temperature (Mechelle-wound Skin No Abnormality Appearance) (Pt Warm) -Tenderness on Palpation (Mechelle-wound Yes Skin Appearance) -Ulcer Cleansing Rinsed/ Irrigated with Saline -Foul Odor after Cleansing No -Anesthetic Used 5% Lidocaine Gel #9 mid-sternal, post op incision -Combined with other wound No -Current Size (cm) - Length 0.6 -Current Size (cm) - Width 0.3 -Current Size (cm) - Depth 0.1 -Total Square Cm 0.18 -Photo Taken No -Epithelialization None Present -Tunneling No -Undermining/Tunneling No -Circular Undermining No -Exudate Amt None Present (0 %) -Wound Margin Distinct, Outline Attached -Granulation Amt None Present (0 %) -Slough/Fibrin Yes -Necrosis Amt Large (67-100%) -Necrotic Tissue Type Adherent Slough -Structure Exposed N/A -Texture (Mechelle-wound Skin Appearance) Scarring -Moisture (Mechelle-wound Skin Appearance Assessed ) -Color (Mechelle-wound Skin Appearance) Assessed -Temperature (Mechelle-wound Skin No Abnormality Appearance) (Pt Warm) -Tenderness on Palpation (Mechelle-wound No Skin Appearance) -Ulcer Cleansing Rinsed/ Irrigated with Saline -Foul Odor after Cleansing No -Anesthetic Used 5% Lidocaine Gel WC - Nurse 2 - General Ulcer CM Notes Start: 05/24/18 11:44 Freq: Status: Active Protocol: Activity Type Activity Date Activity User E-Sign Co-Sign Detail Recorded Client Recorded Date Recorded By Document 05/31/18 10:18 [id number] 05/31/18 10:24 05/31/18 10:18 Wound Center Nurse 2 [Procedure/Treatment] #10 LEFT LOWER MIDCLAVICULAR POST OP -Time 10:18 -Correct Patient Yes -Correct Side, Site, Position Yes -Correct Procedure Yes -Procedure Performed Yes -Type of Procedure Debridement -Clinical Debridement Subcutaneous -Post Debridement Size (cm) - Length 0.9 -Post Debridement Size (cm) - Width 2.0 -Post Debridement Size (cm) - Depth 0.3 -Total Square Cm 1.80 -Wound/Ulcer Outcome Not Healed -Ulcer Cleansing Rinsed/ Irrigated with Saline -Foul Odor after Cleansing No -Bioengineered Tissue No -Bleeding Controlled with Pressure -Treatment Response Procedure Tolerated Well #9 mid-sternal, post op incision -Time 10:19 -Correct Patient Yes -Correct Side, Site, Position Yes -Correct Procedure Yes -Procedure Performed Yes -Type of Procedure Debridement -Clinical Debridement Subcutaneous -Post Debridement Size (cm) - Length 0.2 -Post Debridement Size (cm) - Width 0.2 -Post Debridement Size (cm) - Depth 0.1 -Total Square Cm 0.04 -Wound/Ulcer Outcome Not Healed -Ulcer Cleansing Rinsed/ Irrigated with Saline -Foul Odor after Cleansing No -Bioengineered Tissue No -Bleeding Controlled with Pressure -Treatment Response Procedure Tolerated Well [See Physician Procedure note for Specifics] Pain Scale: 0-10 Numeric [Pain] -Is Patient Pain Free? Yes Musculoskeletal: No Muscle Wasting Neurological: Cranial nerves II-XII grossly intact Psych/Mental Status: Normal Affect Debridement Note Post-Debridement Measurements/Treatment WC - Nurse 2 - General Ulcer CM Notes Start: 05/24/18 11:44 Freq: Status: Active Protocol: Activity Type Activity Date Activity User E-Sign Co-Sign Detail Recorded Client Recorded Date Recorded By Document 05/24/18 12:17 MW [id number] 05/24/18 12:31 MW Document 05/31/18 10:18 CS [id number] 05/31/18 10:24 CS 05/24/18 05/31/18 12:17 10:18 Wound Center Nurse 2 #10 LEFT LOWER MIDCLAVICULAR POST OP -Time 12:27 10:18 -Correct Patient Yes Yes -Correct Side, Site, Position Yes Yes -Correct Procedure Yes Yes -Procedure Performed Yes Yes -Type of Procedure Debridement Debridement -Clinical Debridement Subcutaneous Subcutaneous -Post Debridement Size (cm) - Length 1.0 0.9 -Post Debridement Size (cm) - Width 1.2 2.0 -Post Debridement Size (cm) - Depth 0.2 0.3 -Total Square Cm 1.20 1.80 -Wound/Ulcer Outcome Not Healed Not Healed -Ulcer Cleansing Rinsed/ Rinsed/ Irrigated with Irrigated with Saline Saline -Foul Odor after Cleansing No No -Bioengineered Tissue No No -Bleeding Controlled with Pressure Pressure -Treatment Response Procedure Procedure Tolerated Well Tolerated Well #9 mid-sternal, post op incision -Time 12:28 10:19 -Correct Patient Yes Yes -Correct Side, Site, Position Yes Yes -Correct Procedure Yes Yes -Procedure Performed Yes Yes -Type of Procedure Debridement Debridement -Clinical Debridement Subcutaneous Subcutaneous -Post Debridement Size (cm) - Length 1.0 0.2 -Post Debridement Size (cm) - Width 0.7 0.2 -Post Debridement Size (cm) - Depth 0.2 0.1 -Total Square Cm 0.70 0.04 -Wound/Ulcer Outcome Not Healed Not Healed -Ulcer Cleansing Rinsed/ Rinsed/ Irrigated with Irrigated with Saline Saline -Foul Odor after Cleansing No No -Bioengineered Tissue No No -Bleeding Controlled with Pressure Pressure -Treatment Response Procedure Procedure Tolerated Well Tolerated Well #8- RT HEEL PLANTAR ASPECT -Time 12:17 -Correct Patient Yes -Correct Side, Site, Position Yes -Correct Procedure Yes -Procedure Performed No -Post Debridement Size (cm) - Length 0 -Post Debridement Size (cm) - Width 0 -Post Debridement Size (cm) - Depth 0 -Total Square Cm 0 -Wound/Ulcer Outcome Healed- Epithelialized Pain Scale: 0-10 Numeric Is Patient Pain Free? Yes Yes Wound debrided: Left midclavicular Wound Grade/Stage: Stage II Type of Debridement: Excisional debridement Anesthesia Used: 5% Lidocaine Gel Depth: Down to and including healthy tissue, in the subcutaneous layer Percentage of wound debrided: 100 Instrument Used: 3mm curette, #15 blade, Forceps Tissue Removed: Slough and devitalized tissue Severity: Fat Layer Exposed Amount of bleeding with debridement: Mild Bleeding Controlled with: Pressure Patient tolerated procedure well - Additional Wound Wound debrided: Sternal ( Inferior ) Wound Grade/Stage: Stage II Type of Debridement: Excisional debridement Anesthesia Used: 5% Lidocaine Gel Depth: Down to and including healthy tissue, in the subcutaneous layer Percentage of wound debrided: 100 Instrument Used: 3mm curette Tissue Removed: Slough and deitalized tissue Severity: Fat Layer Exposed Amount of bleeding with debridement: Mild Bleeding Controlled with: Pressure Patient tolerated procedure: Patient tolerated procedure well Assessment/Plan Active Problems (Last Reviewed 11/01/17 @ 16:03 by Wilmer Cartwright) Nonhealing nonsurgical wound with fat layer exposed (Acute) Diabetes mellitus type 2 with complications (Chronic) Assessment: Nonhealing post surgical chest wounds. Right Middle and Ring finger ulcers with Fat layer exposed - Healed. Right Index finger ulcer possible due to vasoconstriction/raynaud's - Healed. Right Foot traumatic wound/ulcer with fat layer exposed -Healed. Plan: No new concerns at this time. Sternal wound wih great improvement however midclavicular wound still with significant slough. Debridement done as documented above, procedure was well-tolerated. Continue santyl to mid clavicular wound. Apply nickel thick amount daily cover with gauze. Pomogran to sternal wound. Will start on levofloxacin per culture and sensitivity. Increased protein intake/supplements also recommended. Optimal blood sugar control recommended. Advised to follow-up with PCP. 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 He was advised to call with any questions or concerns. This note was generated with [employer] software. It may contain incorrect words, spelling, and punctuation that were not noted in checking the note before signing.
--- NOTE | 2018-05-31 10:39 | PN.PCM_ITS ---
(1) Nonhealing nonsurgical wound with fat layer exposed Status: Acute Current Visit: Yes Code(s): T14.8XXA - Other injury of unspecified body region, initial encounter (2) Diabetes mellitus type 2 with complications Status: Chronic Current Visit: Yes Code(s): E11.8 - Type 2 diabetes mellitus with unspecified complications Type of Wound Date of Service: 05/31/18 Chief Complaint: Nonhealing postsurgical chest wound. History of Wound: Mr. Espinoza is a 58-year-old with past medical history as stated above who is well-known to the wound center. He was last seen here about 6 weeks ago when he was being managed for his right foot wound and hand ulcers. He however had CABG done due to an NSTEMI about 5 weeks ago. He now presents with nonhealing of the tube site and postsurgical incision site. He has applied ? Ointment given by his physician however, he has not noted any significant improvement in the wounds and so he presented here. He also attests to purulent discharge from his lateral chest wound. He has been on antibiotics with his last dose on Tuesday prior to presentation. He otherwise denies chills, fever or feeling of unwell. He is scheduled to follow-up with his cardiothoracic surgeon at the [facility] tomorrow. Progress of Wound: Stable. No new complaints at this time. - Physical Exam Vital Signs Temp Pulse Resp BP 98 F 91 16 104/72 05/31/18 09:55 05/31/18 09:55 05/31/18 09:55 05/31/18 09:55 General: Alert, Oriented x3, Cooperative, No apparent distress HEENT: Atraumatic Oral: Moist Mucosa Neck: Supple Lungs: Normal air movement Abdomen: Non Tender Extremities: No cyanosis Wound Measurements and Assessment WC - Nurse 1 - General Ulcer Measurement Start: 05/24/18 11:44 Freq: Status: Active Protocol: Activity Type Activity Date Activity User E-Sign Co-Sign Detail Recorded Client Recorded Date Recorded By Document 05/31/18 09:55 [facility] [id number] 05/31/18 10:02 [facility] 05/31/18 09:55 Wound Center Nurse 1 [Ulcer Assessment] #10 LEFT LOWER MIDCLAVICULAR POST OP -Combined with other wound No -Current Size (cm) - Length 1 -Current Size (cm) - Width 1.9 -Current Size (cm) - Depth 0.1 -Total Square Cm 1.9 -Photo Taken No -Epithelialization None Present -Tunneling No -Undermining/Tunneling No -Circular Undermining No -Exudate Amt Small (1-33%) -Exudate Type Serosanguineous -Wound Margin Distinct, Outline Attached -Granulation Amt None Present (0 %) -Slough/Fibrin Yes -Necrosis Amt Large (67-100%) -Necrotic Tissue Type Adherent Slough -Structure Exposed N/A -Texture (Mechelle-wound Skin Appearance) Scarring -Moisture (Mechelle-wound Skin Appearance Assessed ) -Color (Mechelle-wound Skin Appearance) Assessed -Temperature (Mechelle-wound Skin No Abnormality Appearance) (Pt Warm) -Tenderness on Palpation (Mechelle-wound Yes Skin Appearance) -Ulcer Cleansing Rinsed/ Irrigated with Saline -Foul Odor after Cleansing No -Anesthetic Used 5% Lidocaine Gel #9 mid-sternal, post op incision -Combined with other wound No -Current Size (cm) - Length 0.6 -Current Size (cm) - Width 0.3 -Current Size (cm) - Depth 0.1 -Total Square Cm 0.18 -Photo Taken No -Epithelialization None Present -Tunneling No -Undermining/Tunneling No -Circular Undermining No -Exudate Amt None Present (0 %) -Wound Margin Distinct, Outline Attached -Granulation Amt None Present (0 %) -Slough/Fibrin Yes -Necrosis Amt Large (67-100%) -Necrotic Tissue Type Adherent Slough -Structure Exposed N/A -Texture (Mechelle-wound Skin Appearance) Scarring -Moisture (Mechelle-wound Skin Appearance Assessed ) -Color (Mechelle-wound Skin Appearance) Assessed -Temperature (Mechelle-wound Skin No Abnormality Appearance) (Pt Warm) -Tenderness on Palpation (Mechelle-wound No Skin Appearance) -Ulcer Cleansing Rinsed/ Irrigated with Saline -Foul Odor after Cleansing No -Anesthetic Used 5% Lidocaine Gel WC - Nurse 2 - General Ulcer CM Notes Start: 05/24/18 11:44 Freq: Status: Active Protocol: Activity Type Activity Date Activity User E-Sign Co-Sign Detail Recorded Client Recorded Date Recorded By Document 05/31/18 10:18 [id number] 05/31/18 10:24 05/31/18 10:18 Wound Center Nurse 2 [Procedure/Treatment] #10 LEFT LOWER MIDCLAVICULAR POST OP -Time 10:18 -Correct Patient Yes -Correct Side, Site, Position Yes -Correct Procedure Yes -Procedure Performed Yes -Type of Procedure Debridement -Clinical Debridement Subcutaneous -Post Debridement Size (cm) - Length 0.9 -Post Debridement Size (cm) - Width 2.0 -Post Debridement Size (cm) - Depth 0.3 -Total Square Cm 1.80 -Wound/Ulcer Outcome Not Healed -Ulcer Cleansing Rinsed/ Irrigated with Saline -Foul Odor after Cleansing No -Bioengineered Tissue No -Bleeding Controlled with Pressure -Treatment Response Procedure Tolerated Well #9 mid-sternal, post op incision -Time 10:19 -Correct Patient Yes -Correct Side, Site, Position Yes -Correct Procedure Yes -Procedure Performed Yes -Type of Procedure Debridement -Clinical Debridement Subcutaneous -Post Debridement Size (cm) - Length 0.2 -Post Debridement Size (cm) - Width 0.2 -Post Debridement Size (cm) - Depth 0.1 -Total Square Cm 0.04 -Wound/Ulcer Outcome Not Healed -Ulcer Cleansing Rinsed/ Irrigated with Saline -Foul Odor after Cleansing No -Bioengineered Tissue No -Bleeding Controlled with Pressure -Treatment Response Procedure Tolerated Well [See Physician Procedure note for Specifics] Pain Scale: 0-10 Numeric [Pain] -Is Patient Pain Free? Yes Musculoskeletal: No Muscle Wasting Neurological: Cranial nerves II-XII grossly intact Psych/Mental Status: Normal Affect Debridement Note Post-Debridement Measurements/Treatment WC - Nurse 2 - General Ulcer CM Notes Start: 05/24/18 11:44 Freq: Status: Active Protocol: Activity Type Activity Date Activity User E-Sign Co-Sign Detail Recorded Client Recorded Date Recorded By Document 05/24/18 12:17 MW [id number] 05/24/18 12:31 MW Document 05/31/18 10:18 CS [id number] 05/31/18 10:24 CS 05/24/18 05/31/18 12:17 10:18 Wound Center Nurse 2 #10 LEFT LOWER MIDCLAVICULAR POST OP -Time 12:27 10:18 -Correct Patient Yes Yes -Correct Side, Site, Position Yes Yes -Correct Procedure Yes Yes -Procedure Performed Yes Yes -Type of Procedure Debridement Debridement -Clinical Debridement Subcutaneous Subcutaneous -Post Debridement Size (cm) - Length 1.0 0.9 -Post Debridement Size (cm) - Width 1.2 2.0 -Post Debridement Size (cm) - Depth 0.2 0.3 -Total Square Cm 1.20 1.80 -Wound/Ulcer Outcome Not Healed Not Healed -Ulcer Cleansing Rinsed/ Rinsed/ Irrigated with Irrigated with Saline Saline -Foul Odor after Cleansing No No -Bioengineered Tissue No No -Bleeding Controlled with Pressure Pressure -Treatment Response Procedure Procedure Tolerated Well Tolerated Well #9 mid-sternal, post op incision -Time 12:28 10:19 -Correct Patient Yes Yes -Correct Side, Site, Position Yes Yes -Correct Procedure Yes Yes -Procedure Performed Yes Yes -Type of Procedure Debridement Debridement -Clinical Debridement Subcutaneous Subcutaneous -Post Debridement Size (cm) - Length 1.0 0.2 -Post Debridement Size (cm) - Width 0.7 0.2 -Post Debridement Size (cm) - Depth 0.2 0.1 -Total Square Cm 0.70 0.04 -Wound/Ulcer Outcome Not Healed Not Healed -Ulcer Cleansing Rinsed/ Rinsed/ Irrigated with Irrigated with Saline Saline -Foul Odor after Cleansing No No -Bioengineered Tissue No No -Bleeding Controlled with Pressure Pressure -Treatment Response Procedure Procedure Tolerated Well Tolerated Well #8- RT HEEL PLANTAR ASPECT -Time 12:17 -Correct Patient Yes -Correct Side, Site, Position Yes -Correct Procedure Yes -Procedure Performed No -Post Debridement Size (cm) - Length 0 -Post Debridement Size (cm) - Width 0 -Post Debridement Size (cm) - Depth 0 -Total Square Cm 0 -Wound/Ulcer Outcome Healed- Epithelialized Pain Scale: 0-10 Numeric Is Patient Pain Free? Yes Yes Wound debrided: Left midclavicular Wound Grade/Stage: Stage II Type of Debridement: Excisional debridement Anesthesia Used: 5% Lidocaine Gel Depth: Down to and including healthy tissue, in the subcutaneous layer Percentage of wound debrided: 100 Instrument Used: 3mm curette, #15 blade, Forceps Tissue Removed: Slough and devitalized tissue Severity: Fat Layer Exposed Amount of bleeding with debridement: Mild Bleeding Controlled with: Pressure Patient tolerated procedure well - Additional Wound Wound debrided: Sternal ( Inferior ) Wound Grade/Stage: Stage II Type of Debridement: Excisional debridement Anesthesia Used: 5% Lidocaine Gel Depth: Down to and including healthy tissue, in the subcutaneous layer Percentage of wound debrided: 100 Instrument Used: 3mm curette Tissue Removed: Slough and deitalized tissue Severity: Fat Layer Exposed Amount of bleeding with debridement: Mild Bleeding Controlled with: Pressure Patient tolerated procedure: Patient tolerated procedure well Assessment/Plan Active Problems (Last Reviewed 11/01/17 @ 16:03 by Wilmer Cartwright) Nonhealing nonsurgical wound with fat layer exposed (Acute) Diabetes mellitus type 2 with complications (Chronic) Assessment: Nonhealing post surgical chest wounds. Right Middle and Ring finger ulcers with Fat layer exposed - Healed. Right Index finger ulcer possible due to vasoconstriction/raynaud's - Healed. Right Foot traumatic wound /ulcer with fat layer exposed -Healed. Plan: No new concerns at this time. Sternal wound wih great improvement however midclavicular wound still with significant slough. Debridement done as documented above, procedure was well-tolerated. Continue santyl to mid clavicular wound. Apply nickel thick amount daily cover with gauze. Pomogran to sternal wound. Will start on levofloxacin per culture and sensitivity. Increased protein intake/supplements also recommended. Optimal blood sugar control recommended. Advised to follow-up with PCP. 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 He was advised to call with any questions or concerns. This note was generated with [employer] software. It may contain incorrect words, spelling, and punctuation that were not noted in checking the note before signing.
[2018-06-07 12:19] VITALS: BP 100/63; PULSE 90; RESP 16; TEMP 37; BMI 27.2
--- NOTE | 2018-06-07 13:10 | PCM.WC.PN ---
(1) Nonhealing nonsurgical wound with fat layer exposed Status: Acute Current Visit: Yes Code(s): T14.8XXA - Other injury of unspecified body region, initial encounter (2) Diabetes mellitus type 2 with complications Status: Chronic Current Visit: Yes Code(s): E11.8 - Type 2 diabetes mellitus with unspecified complications Type of Wound Date of Service: 06/07/18 Chief Complaint: Nonhealing postsurgical chest wound. History of Wound: Mr. Espinoza is a 58-year-old with past medical history as stated above who is well-known to the wound center. He was last seen here about 6 weeks ago when he was being managed for his right foot wound and hand ulcers. He however had CABG done due to an NSTEMI about 5 weeks ago. He now presents with nonhealing of the tube site and postsurgical incision site. He has applied ? Ointment given by his physician however, he has not noted any significant improvement in the wounds and so he presented here. He also attests to purulent discharge from his lateral chest wound. He has been on antibiotics with his last dose on Tuesday prior to presentation. He otherwise denies chills, fever or feeling of unwell. He is scheduled to follow-up with his cardiothoracic surgeon at the [facility] tomorrow. Progress of Wound: Improving. - Physical Exam Vital Signs Temp Pulse Resp BP 98.6 F 90 16 100/63 06/07/18 12:19 06/07/18 12:19 06/07/18 12:19 06/07/18 12:19 General: Alert, Oriented x3, Cooperative, No apparent distress HEENT: Atraumatic Oral: Moist Mucosa Neck: Supple Lungs: Normal air movement Abdomen: Non Tender Extremities: No cyanosis Skin: Ulcer/ Wound Wound Measurements and Assessment WC - Nurse 1 - General Ulcer Measurement Start: 05/24/18 11:44 Freq: Status: Active Protocol: Activity Type Activity Date Activity User E-Sign Co-Sign Detail Recorded Client Recorded Date Recorded By Document 06/07/18 12:19 [facility] [id number] 06/07/18 12:28 [facility] 06/07/18 12:19 Wound Center Nurse 1 [Ulcer Assessment] #10 LEFT LOWER MIDCLAVICULAR POST OP -Combined with other wound No -Current Size (cm) - Length 0.7 -Current Size (cm) - Width 1.2 -Current Size (cm) - Depth 0.1 -Total Square Cm 0.84 -Photo Taken No -Epithelialization None Present -Tunneling No -Undermining/Tunneling No -Circular Undermining No -Exudate Amt Small (1-33%) -Exudate Type Serous -Wound Margin Distinct, Outline Attached -Granulation Amt Small (1-33%) -Granulation Quality Red -Slough/Fibrin Yes -Necrosis Amt Large (67-100%) -Necrotic Tissue Type Adherent Slough -Texture (Mechelle-wound Skin Appearance) Scarring -Moisture (Mechelle-wound Skin Appearance Assessed ) -Color (Mechelle-wound Skin Appearance) Erythema -Temperature (Mechelle-wound Skin No Abnormality Appearance) (Pt Warm) -Tenderness on Palpation (Mechelle-wound Yes Skin Appearance) -Ulcer Cleansing Rinsed/ Irrigated with Saline -Foul Odor after Cleansing No -Anesthetic Used 4% Lidocaine Solution 5% Lidocaine Gel #9 mid-sternal, post op incision -Combined with other wound No -Current Size (cm) - Length 1.2 -Current Size (cm) - Width 0.2 -Current Size (cm) - Depth 0.1 -Total Square Cm 0.24 -Photo Taken No -Epithelialization None Present -Tunneling No -Undermining/Tunneling No -Circular Undermining No -Exudate Amt None Present (0 %) -Wound Margin Distinct, Outline Attached -Granulation Amt None Present (0 %) -Slough/Fibrin Yes -Necrosis Amt Large (67-100%) -Necrotic Tissue Type Eschar -Structure Exposed N/A -Texture (Mechelle-wound Skin Appearance) Scarring -Moisture (Mechelle-wound Skin Appearance Dry/Scaly ) -Color (Mechelle-wound Skin Appearance) Assessed -Temperature (Mechelle-wound Skin No Abnormality Appearance) (Pt Warm) -Tenderness on Palpation (Mechelle-wound No Skin Appearance) -Ulcer Cleansing Rinsed/ Irrigated with Saline -Foul Odor after Cleansing No -Anesthetic Used 4% Lidocaine Solution 5% Lidocaine Gel WC - Nurse 2 - General Ulcer CM Notes Start: 05/24/18 11:44 Freq: Status: Active Protocol: Activity Type Activity Date Activity User E-Sign Co-Sign Detail Recorded Client Recorded Date Recorded By Document 06/07/18 12:38 MW [id number] 06/07/18 12:41 MW 06/07/18 12:38 Wound Center Nurse 2 [Procedure/Treatment] #10 LEFT LOWER MIDCLAVICULAR POST OP -Time 12:38 -Correct Patient Yes -Correct Side, Site, Position Yes -Correct Procedure Yes -Procedure Performed Yes -Type of Procedure Debridement -Clinical Debridement Subcutaneous -Post Debridement Size (cm) - Length 0.8 -Post Debridement Size (cm) - Width 1.0 -Post Debridement Size (cm) - Depth 0.2 -Total Square Cm 0.80 -Wound/Ulcer Outcome Not Healed -Ulcer Cleansing Rinsed/ Irrigated with Saline -Foul Odor after Cleansing No -Bioengineered Tissue No -Bleeding Controlled with Pressure -Treatment Response Procedure Tolerated Well #9 mid-sternal, post op incision -Time 12:38 -Correct Patient Yes -Correct Side, Site, Position Yes -Correct Procedure Yes -Procedure Performed Yes -Type of Procedure Debridement -Clinical Debridement Subcutaneous -Post Debridement Size (cm) - Length 0.1 -Post Debridement Size (cm) - Width 0.1 -Post Debridement Size (cm) - Depth 0.1 -Total Square Cm 0.01 -Wound/Ulcer Outcome Not Healed -Ulcer Cleansing Rinsed/ Irrigated with Saline -Foul Odor after Cleansing No -Bioengineered Tissue No -Bleeding Controlled with Pressure -Treatment Response Procedure Tolerated Well [See Physician Procedure note for Specifics] Pain Scale: 0-10 Numeric [Pain] -Is Patient Pain Free? Yes Musculoskeletal: No Muscle Wasting Neurological: Cranial nerves II-XII grossly intact Psych/Mental Status: Normal Affect Debridement Note Post-Debridement Measurements/Treatment WC - Nurse 2 - General Ulcer CM Notes Start: 05/24/18 11:44 Freq: Status: Active Protocol: Activity Type Activity Date Activity User E-Sign Co-Sign Detail Recorded Client Recorded Date Recorded By Document 05/24/18 12:17 MW [id number] 05/24/18 12:31 MW Document 05/31/18 10:18 CS [id number] 05/31/18 10:24 CS Document 06/07/18 12:38 MW [id number] 06/07/18 12:41 MW 05/24/18 05/31/18 06/07/18 12:17 10:18 12:38 Wound Center Nurse 2 #10 LEFT LOWER MIDCLAVICULAR POST OP -Time 12:27 10:18 12:38 -Correct Patient Yes Yes Yes -Correct Side, Site, Position Yes Yes Yes -Correct Procedure Yes Yes Yes -Procedure Performed Yes Yes Yes -Type of Procedure Debridement Debridement Debridement -Clinical Debridement Subcutaneous Subcutaneous Subcutaneous -Post Debridement Size (cm) - Length 1.0 0.9 0.8 -Post Debridement Size (cm) - Width 1.2 2.0 1.0 -Post Debridement Size (cm) - Depth 0.2 0.3 0.2 -Total Square Cm 1.20 1.80 0.80 -Wound/Ulcer Outcome Not Healed Not Healed Not Healed -Ulcer Cleansing Rinsed/ Rinsed/ Rinsed/ Irrigated with Irrigated with Irrigated with Saline Saline Saline -Foul Odor after Cleansing No No No -Bioengineered Tissue No No No -Bleeding Controlled with Pressure Pressure Pressure -Treatment Response Procedure Procedure Procedure Tolerated Well Tolerated Well Tolerated Well #9 mid-sternal, post op incision -Time 12:28 10:19 12:38 -Correct Patient Yes Yes Yes -Correct Side, Site, Position Yes Yes Yes -Correct Procedure Yes Yes Yes -Procedure Performed Yes Yes Yes -Type of Procedure Debridement Debridement Debridement -Clinical Debridement Subcutaneous Subcutaneous Subcutaneous -Post Debridement Size (cm) - Length 1.0 0.2 0.1 -Post Debridement Size (cm) - Width 0.7 0.2 0.1 -Post Debridement Size (cm) - Depth 0.2 0.1 0.1 -Total Square Cm 0.70 0.04 0.01 -Wound/Ulcer Outcome Not Healed Not Healed Not Healed -Ulcer Cleansing Rinsed/ Rinsed/ Rinsed/ Irrigated with Irrigated with Irrigated with Saline Saline Saline -Foul Odor after Cleansing No No No -Bioengineered Tissue No No No -Bleeding Controlled with Pressure Pressure Pressure -Treatment Response Procedure Procedure Procedure Tolerated Well Tolerated Well Tolerated Well #8- RT HEEL PLANTAR ASPECT -Time 12:17 -Correct Patient Yes -Correct Side, Site, Position Yes -Correct Procedure Yes -Procedure Performed No -Post Debridement Size (cm) - Length 0 -Post Debridement Size (cm) - Width 0 -Post Debridement Size (cm) - Depth 0 -Total Square Cm 0 -Wound/Ulcer Outcome Healed- Epithelialized Pain Scale: 0-10 Numeric Is Patient Pain Free? Yes Yes Yes Wound debrided: Left Mid clavicular Wound Grade/Stage: Stage II Type of Debridement: Excisional debridement Anesthesia Used: 4% Lidocaine Solution, 5% Lidocaine Gel Depth: Down to and including healthy tissue, in the subcutaneous layer Percentage of wound debrided: 100 Instrument Used: 5mm curette Tissue Removed: Slough and devitalized tisue Severity: Fat Layer Exposed Amount of bleeding with debridement: Mild Bleeding Controlled with: Pressure Patient tolerated procedure well - Additional Wound Wound debrided: Mid sternal Wound Grade/Stage: Stage II Type of Debridement: Excisional debridement Anesthesia Used: 4% Lidocaine Solution Depth: Down to and including healthy tissue, in the subcutaneous layer Percentage of wound debrided: 100 Instrument Used: 3mm curette Tissue Removed: Slouh and devitalized tissue Severity: Limited To Skin Breakdown Amount of bleeding with debridement: None Patient tolerated procedure: Patient tolerated procedure well Assessment/Plan Active Problems (Last Reviewed 11/01/17 @ 16:03 by Wilmer Cartwright) Nonhealing nonsurgical wound with fat layer exposed (Acute) Diabetes mellitus type 2 with complications (Chronic) Assessment: Nonhealing post surgical chest wounds. Right Middle and Ring finger ulcers with Fat layer exposed - Healed. Right Index finger ulcer possible due to vasoconstriction/raynaud's - Healed. Right Foot traumatic wound/ulcer with fat layer exposed -Healed. Plan: No new concerns at this time. Wound with good improvement in the past week. Debridement done as documented above, procedure was well-tolerated. Tegan with adaptic over top to both wounds. Change daily. Increased protein intake/supplements also recommended. Optimal blood sugar control recommended. Advised to follow-up with PCP. 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 He was advised to call with any questions or concerns. This note was generated with [employer] software. It may contain incorrect words, spelling, and punctuation that were not noted in checking the note before signing.
--- NOTE | 2018-06-07 13:13 | PN.PCM_ITS ---
(1) Nonhealing nonsurgical wound with fat layer exposed Status: Acute Current Visit: Yes Code(s): T14.8XXA - Other injury of unspecified body region, initial encounter (2) Diabetes mellitus type 2 with complications Status: Chronic Current Visit: Yes Code(s): E11.8 - Type 2 diabetes mellitus with unspecified complications Type of Wound Date of Service: 06/07/18 Chief Complaint: Nonhealing postsurgical chest wound. History of Wound: Mr. Espinoza is a 58-year-old with past medical history as stated above who is well-known to the wound center. He was last seen here about 6 weeks ago when he was being managed for his right foot wound and hand ulcers. He however had CABG done due to an NSTEMI about 5 weeks ago. He now presents with nonhealing of the tube site and postsurgical incision site. He has applied ? Ointment given by his physician however, he has not noted any significant improvement in the wounds and so he presented here. He also attests to purulent discharge from his lateral chest wound. He has been on antibiotics with his last dose on Tuesday prior to presentation. He otherwise denies chills, fever or feeling of unwell. He is scheduled to follow-up with his cardiothoracic surgeon at the [facility] tomorrow. Progress of Wound: Improving. - Physical Exam Vital Signs Temp Pulse Resp BP 98.6 F 90 16 100/63 06/07/18 12:19 06/07/18 12:19 06/07/18 12:19 06/07/18 12:19 General: Alert, Oriented x3, Cooperative, No apparent distress HEENT: Atraumatic Oral: Moist Mucosa Neck: Supple Lungs: Normal air movement Abdomen: Non Tender Extremities: No cyanosis Skin: Ulcer/ Wound Wound Measurements and Assessment WC - Nurse 1 - General Ulcer Measurement Start: 05/24/18 11:44 Freq: Status: Active Protocol: Activity Type Activity Date Activity User E-Sign Co-Sign Detail Recorded Client Recorded Date Recorded By Document 06/07/18 12:19 [facility] [id number] 06/07/18 12:28 [facility] 06/07/18 12:19 Wound Center Nurse 1 [Ulcer Assessment] #10 LEFT LOWER MIDCLAVICULAR POST OP -Combined with other wound No -Current Size (cm) - Length 0.7 -Current Size (cm) - Width 1.2 -Current Size (cm) - Depth 0.1 -Total Square Cm 0.84 -Photo Taken No -Epithelialization None Present -Tunneling No -Undermining/Tunneling No -Circular Undermining No -Exudate Amt Small (1-33%) -Exudate Type Serous -Wound Margin Distinct, Outline Attached -Granulation Amt Small (1-33%) -Granulation Quality Red -Slough/Fibrin Yes -Necrosis Amt Large (67-100%) -Necrotic Tissue Type Adherent Slough -Texture (Mechelle-wound Skin Appearance) Scarring -Moisture (Mechelle-wound Skin Appearance Assessed ) -Color (Mechelle-wound Skin Appearance) Erythema -Temperature (Mechelle-wound Skin No Abnormality Appearance) (Pt Warm) -Tenderness on Palpation (Mechelle-wound Yes Skin Appearance) -Ulcer Cleansing Rinsed/ Irrigated with Saline -Foul Odor after Cleansing No -Anesthetic Used 4% Lidocaine Solution 5% Lidocaine Gel #9 mid-sternal, post op incision -Combined with other wound No -Current Size (cm) - Length 1.2 -Current Size (cm) - Width 0.2 -Current Size (cm) - Depth 0.1 -Total Square Cm 0.24 -Photo Taken No -Epithelialization None Present -Tunneling No -Undermining/Tunneling No -Circular Undermining No -Exudate Amt None Present (0 %) -Wound Margin Distinct, Outline Attached -Granulation Amt None Present (0 %) -Slough/Fibrin Yes -Necrosis Amt Large (67-100%) -Necrotic Tissue Type Eschar -Structure Exposed N/A -Texture (Mechelle-wound Skin Appearance) Scarring -Moisture (Mechelle-wound Skin Appearance Dry/Scaly ) -Color (Mechelle-wound Skin Appearance) Assessed -Temperature (Mechelle-wound Skin No Abnormality Appearance) (Pt Warm) -Tenderness on Palpation (Mechelle-wound No Skin Appearance) -Ulcer Cleansing Rinsed/ Irrigated with Saline -Foul Odor after Cleansing No -Anesthetic Used 4% Lidocaine Solution 5% Lidocaine Gel WC - Nurse 2 - General Ulcer CM Notes Start: 05/24/18 11:44 Freq: Status: Active Protocol: Activity Type Activity Date Activity User E-Sign Co-Sign Detail Recorded Client Recorded Date Recorded By Document 06/07/18 12:38 MW [id number] 06/07/18 12:41 MW 06/07/18 12:38 Wound Center Nurse 2 [Procedure/Treatment] #10 LEFT LOWER MIDCLAVICULAR POST OP -Time 12:38 -Correct Patient Yes -Correct Side, Site, Position Yes -Correct Procedure Yes -Procedure Performed Yes -Type of Procedure Debridement -Clinical Debridement Subcutaneous -Post Debridement Size (cm) - Length 0.8 -Post Debridement Size (cm) - Width 1.0 -Post Debridement Size (cm) - Depth 0.2 -Total Square Cm 0.80 -Wound/Ulcer Outcome Not Healed -Ulcer Cleansing Rinsed/ Irrigated with Saline -Foul Odor after Cleansing No -Bioengineered Tissue No -Bleeding Controlled with Pressure -Treatment Response Procedure Tolerated Well #9 mid-sternal, post op incision -Time 12:38 -Correct Patient Yes -Correct Side, Site, Position Yes -Correct Procedure Yes -Procedure Performed Yes -Type of Procedure Debridement -Clinical Debridement Subcutaneous -Post Debridement Size (cm) - Length 0.1 -Post Debridement Size (cm) - Width 0.1 -Post Debridement Size (cm) - Depth 0.1 -Total Square Cm 0.01 -Wound/Ulcer Outcome Not Healed -Ulcer Cleansing Rinsed/ Irrigated with Saline -Foul Odor after Cleansing No -Bioengineered Tissue No -Bleeding Controlled with Pressure -Treatment Response Procedure Tolerated Well [See Physician Procedure note for Specifics] Pain Scale: 0-10 Numeric [Pain] -Is Patient Pain Free? Yes Musculoskeletal: No Muscle Wasting Neurological: Cranial nerves II-XII grossly intact Psych/Mental Status: Normal Affect Debridement Note Post-Debridement Measurements/Treatment WC - Nurse 2 - General Ulcer CM Notes Start: 05/24/18 11:44 Freq: Status: Active Protocol: Activity Type Activity Date Activity User E-Sign Co-Sign Detail Recorded Client Recorded Date Recorded By Document 05/24/18 12:17 MW [id number] 05/24/18 12:31 MW Document 05/31/18 10:18 CS [id number] 05/31/18 10:24 CS Document 06/07/18 12:38 MW [id number] 06/07/18 12:41 MW 05/24/18 05/31/18 06/07/18 12:17 10:18 12:38 Wound Center Nurse 2 #10 LEFT LOWER MIDCLAVICULAR POST OP -Time 12:27 10:18 12:38 -Correct Patient Yes Yes Yes -Correct Side, Site, Position Yes Yes Yes -Correct Procedure Yes Yes Yes -Procedure Performed Yes Yes Yes -Type of Procedure Debridement Debridement Debridement -Clinical Debridement Subcutaneous Subcutaneous Subcutaneous -Post Debridement Size (cm) - Length 1.0 0.9 0.8 -Post Debridement Size (cm) - Width 1.2 2.0 1.0 -Post Debridement Size (cm) - Depth 0.2 0.3 0.2 -Total Square Cm 1.20 1.80 0.80 -Wound/Ulcer Outcome Not Healed Not Healed Not Healed -Ulcer Cleansing Rinsed/ Rinsed/ Rinsed/ Irrigated with Irrigated with Irrigated with Saline Saline Saline -Foul Odor after Cleansing No No No -Bioengineered Tissue No No No -Bleeding Controlled with Pressure Pressure Pressure -Treatment Response Procedure Procedure Procedure Tolerated Well Tolerated Well Tolerated Well #9 mid-sternal, post op incision -Time 12:28 10:19 12:38 -Correct Patient Yes Yes Yes -Correct Side, Site, Position Yes Yes Yes -Correct Procedure Yes Yes Yes -Procedure Performed Yes Yes Yes -Type of Procedure Debridement Debridement Debridement -Clinical Debridement Subcutaneous Subcutaneous Subcutaneous -Post Debridement Size (cm) - Length 1.0 0.2 0.1 -Post Debridement Size (cm) - Width 0.7 0.2 0.1 -Post Debridement Size (cm) - Depth 0.2 0.1 0.1 -Total Square Cm 0.70 0.04 0.01 -Wound/Ulcer Outcome Not Healed Not Healed Not Healed -Ulcer Cleansing Rinsed/ Rinsed/ Rinsed/ Irrigated with Irrigated with Irrigated with Saline Saline Saline -Foul Odor after Cleansing No No No -Bioengineered Tissue No No No -Bleeding Controlled with Pressure Pressure Pressure -Treatment Response Procedure Procedure Procedure Tolerated Well Tolerated Well Tolerated Well #8- RT HEEL PLANTAR ASPECT -Time 12:17 -Correct Patient Yes -Correct Side, Site, Position Yes -Correct Procedure Yes -Procedure Performed No -Post Debridement Size (cm) - Length 0 -Post Debridement Size (cm) - Width 0 -Post Debridement Size (cm) - Depth 0 -Total Square Cm 0 -Wound/Ulcer Outcome Healed- Epithelialized Pain Scale: 0-10 Numeric Is Patient Pain Free? Yes Yes Yes Wound debrided: Left Mid clavicular Wound Grade/Stage: Stage II Type of Debridement: Excisional debridement Anesthesia Used: 4% Lidocaine Solution, 5% Lidocaine Gel Depth: Down to and including healthy tissue, in the subcutaneous layer Percentage of wound debrided: 100 Instrument Used: 5mm curette Tissue Removed: Slough and devitalized tisue Severity: Fat Layer Exposed Amount of bleeding with debridement: Mild Bleeding Controlled with: Pressure Patient tolerated procedure well - Additional Wound Wound debrided: Mid sternal Wound Grade/Stage: Stage II Type of Debridement: Excisional debridement Anesthesia Used: 4% Lidocaine Solution Depth: Down to and including healthy tissue, in the subcutaneous layer Percentage of wound debrided: 100 Instrument Used: 3mm curette Tissue Removed: Slouh and devitalized tissue Severity: Limited To Skin Breakdown Amount of bleeding with debridement: None Patient tolerated procedure: Patient tolerated procedure well Assessment/Plan Active Problems (Last Reviewed 11/01/17 @ 16:03 by Wilmer Cartwright) Nonhealing nonsurgical wound with fat layer exposed (Acute) Diabetes mellitus type 2 with complications (Chronic) Assessment: Nonhealing post surgical chest wounds. Right Middle and Ring finger ulcers with Fat layer exposed - Healed. Right Index finger ulcer possible due to vasoconstriction/raynaud's - Healed. Right Foot traumatic wound /ulcer with fat layer exposed -Healed. Plan: No new concerns at this time. Wound with good improvement in the past week. Debridement done as documented above, procedure was well-tolerated. Tegan with adaptic over top to both wounds. Change daily. Increased protein intake/supplements also recommended. Optimal blood sugar control recommended. Advised to follow-up with PCP. 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 He was advised to call with any questions or concerns. This note was generated with [employer] software. It may contain incorrect words, spelling, and punctuation that were not noted in checking the note before signing.
[2018-06-14 12:27] VITALS: BP 125/75; PULSE 91; RESP 16; TEMP 37.2; BMI 27.2
--- NOTE | 2018-06-14 13:14 | PCM.WC.PN ---
(1) Nonhealing nonsurgical wound with fat layer exposed Status: Acute Current Visit: Yes Code(s): T14.8XXA - Other injury of unspecified body region, initial encounter (2) Diabetes mellitus type 2 with complications Status: Chronic Current Visit: Yes Code(s): E11.8 - Type 2 diabetes mellitus with unspecified complications Type of Wound Date of Service: 06/14/18 Chief Complaint: Nonhealing postsurgical chest wound. History of Wound: Mr. Espinoza is a 58-year-old with past medical history as stated above who is well-known to the wound center. He was last seen here about 6 weeks ago when he was being managed for his right foot wound and hand ulcers. He however had CABG done due to an NSTEMI about 5 weeks ago. He now presents with nonhealing of the tube site and postsurgical incision site. He has applied ? Ointment given by his physician however, he has not noted any significant improvement in the wounds and so he presented here. He also attests to purulent discharge from his lateral chest wound. He has been on antibiotics with his last dose on Tuesday prior to presentation. He otherwise denies chills, fever or feeling of unwell. He is scheduled to follow-up with his cardiothoracic surgeon at the [facility] tomorrow. Progress of Wound: Improving. Mid sternal wound has healed. - Physical Exam Vital Signs Temp Pulse Resp BP 98.9 F 91 16 125/75 H 06/14/18 12:27 06/14/18 12:27 06/14/18 12:27 06/14/18 12:27 General: Alert, Oriented x3, Cooperative, No apparent distress HEENT: Atraumatic Oral: Moist Mucosa Neck: Supple Lungs: Normal air movement Cardiovascular: Regular rate Abdomen: Soft, Non Tender Extremities: No cyanosis Skin: Ulcer/ Wound Wound Measurements and Assessment WC - Nurse 1 - General Ulcer Measurement Start: 05/24/18 11:44 Freq: Status: Active Protocol: Activity Type Activity Date Activity User E-Sign Co-Sign Detail Recorded Client Recorded Date Recorded By Document 06/14/18 12:27 [id number] 06/14/18 12:31 06/14/18 12:27 Wound Center Nurse 1 [Ulcer Assessment] #10 LEFT LOWER MIDCLAVICULAR POST OP -Combined with other wound No -Current Size (cm) - Length 0.6 -Current Size (cm) - Width 1.3 -Current Size (cm) - Depth 0.1 -Total Square Cm 0.78 -Photo Taken No -Epithelialization None Present -Tunneling No -Undermining/Tunneling No -Circular Undermining No -Granulation Amt Medium (34-66%) -Granulation Quality [place] Red -Slough/Fibrin Yes -Necrosis Amt Medium (34-66%) -Necrotic Tissue Type Adherent Slough -Structure Exposed None/Limited to Skin Breakdown -Texture (Mechelle-wound Skin Appearance) No Abnormality Assessed -Moisture (Mechelle-wound Skin Appearance No Abnormality ) Assessed -Color (Mechelle-wound Skin Appearance) No Abnormality Assessed -Temperature (Mechelle-wound Skin No Abnormality Appearance) (Pt Warm) -Tenderness on Palpation (Mechelle-wound No Skin Appearance) -Ulcer Cleansing Rinsed/ Irrigated with Saline -Foul Odor after Cleansing No -Anesthetic Used 4% Lidocaine Solution #9 mid-sternal, post op incision -Combined with other wound No -Current Size (cm) - Length 0.1 -Current Size (cm) - Width 0.1 -Current Size (cm) - Depth 0.1 -Total Square Cm 0.01 -Date of Last Picture (Recall this 06/14/18 field) -Photo Taken Yes -Epithelialization Large 67-100% [Edema Assessment] -Lower Limb Edema Present NA WC - Nurse 2 - General Ulcer CM Notes Start: 05/24/18 11:44 Freq: Status: Active Protocol: Activity Type Activity Date Activity User E-Sign Co-Sign Detail Recorded Client Recorded Date Recorded By Document 06/14/18 12:53 MW [id number] 06/14/18 12:56 MW 06/14/18 12:53 Wound Center Nurse 2 [Procedure/Treatment] #10 LEFT LOWER MIDCLAVICULAR POST OP -Time 12:53 -Correct Patient Yes -Correct Side, Site, Position Yes -Correct Procedure Yes -Procedure Performed Yes -Type of Procedure Debridement -Clinical Debridement Subcutaneous -Post Debridement Size (cm) - Length 0.5 -Post Debridement Size (cm) - Width 0.8 -Post Debridement Size (cm) - Depth 0.2 -Total Square Cm 0.40 -Wound/Ulcer Outcome Not Healed -Ulcer Cleansing Rinsed/ Irrigated with Saline -Foul Odor after Cleansing No -Bioengineered Tissue No -Bleeding Controlled with Pressure -Treatment Response Procedure Tolerated Well #9 mid-sternal, post op incision -Time 12:53 -Correct Patient Yes -Correct Side, Site, Position Yes -Correct Procedure No -Procedure Performed No -Post Debridement Size (cm) - Length 0 -Post Debridement Size (cm) - Width 0 -Post Debridement Size (cm) - Depth 0 -Total Square Cm 0 -Wound/Ulcer Outcome Healed- Epithelialized [See Physician Procedure note for Specifics] Pain Scale: 0-10 Numeric [Pain] -Is Patient Pain Free? Yes Musculoskeletal: No Muscle Wasting Neurological: Cranial nerves II-XII grossly intact Psych/Mental Status: Normal Affect Debridement Note Post-Debridement Measurements/Treatment WC - Nurse 2 - General Ulcer CM Notes Start: 05/24/18 11:44 Freq: Status: Active Protocol: Activity Type Activity Date Activity User E-Sign Co-Sign Detail Recorded Client Recorded Date Recorded By Document 05/24/18 12:17 MW [id number] 05/24/18 12:31 MW Document 05/31/18 10:18 CS [id number] 05/31/18 10:24 CS Document 06/07/18 12:38 MW [id number] 06/07/18 12:41 MW Document 06/14/18 12:53 MW [id number] 06/14/18 12:56 MW 05/24/18 05/31/18 06/07/18 12:17 10:18 12:38 Wound Center Nurse 2 #10 LEFT LOWER MIDCLAVICULAR POST OP -Time 12:27 10:18 12:38 -Correct Patient Yes Yes Yes -Correct Side, Site, Position Yes Yes Yes -Correct Procedure Yes Yes Yes -Procedure Performed Yes Yes Yes -Type of Procedure Debridement Debridement Debridement -Clinical Debridement Subcutaneous Subcutaneous Subcutaneous -Post Debridement Size (cm) - Length 1.0 0.9 0.8 -Post Debridement Size (cm) - Width 1.2 2.0 1.0 -Post Debridement Size (cm) - Depth 0.2 0.3 0.2 -Total Square Cm 1.20 1.80 0.80 -Wound/Ulcer Outcome Not Healed Not Healed Not Healed -Ulcer Cleansing Rinsed/ Rinsed/ Rinsed/ Irrigated with Irrigated with Irrigated with Saline Saline Saline -Foul Odor after Cleansing No No No -Bioengineered Tissue No No No -Bleeding Controlled with Pressure Pressure Pressure -Treatment Response Procedure Procedure Procedure Tolerated Well Tolerated Well Tolerated Well #9 mid-sternal, post op incision -Time 12:28 10:19 12:38 -Correct Patient Yes Yes Yes -Correct Side, Site, Position Yes Yes Yes -Correct Procedure Yes Yes Yes -Procedure Performed Yes Yes Yes -Type of Procedure Debridement Debridement Debridement -Clinical Debridement Subcutaneous Subcutaneous Subcutaneous -Post Debridement Size (cm) - Length 1.0 0.2 0.1 -Post Debridement Size (cm) - Width 0.7 0.2 0.1 -Post Debridement Size (cm) - Depth 0.2 0.1 0.1 -Total Square Cm 0.70 0.04 0.01 -Wound/Ulcer Outcome Not Healed Not Healed Not Healed -Ulcer Cleansing Rinsed/ Rinsed/ Rinsed/ Irrigated with Irrigated with Irrigated with Saline Saline Saline -Foul Odor after Cleansing No No No -Bioengineered Tissue No No No -Bleeding Controlled with Pressure Pressure Pressure -Treatment Response Procedure Procedure Procedure Tolerated Well Tolerated Well Tolerated Well #8- RT HEEL PLANTAR ASPECT -Time 12:17 -Correct Patient Yes -Correct Side, Site, Position Yes -Correct Procedure Yes -Procedure Performed No -Post Debridement Size (cm) - Length 0 -Post Debridement Size (cm) - Width 0 -Post Debridement Size (cm) - Depth 0 -Total Square Cm 0 -Wound/Ulcer Outcome Healed- Epithelialized Pain Scale: 0-10 Numeric Is Patient Pain Free? Yes Yes Yes 06/14/18 12:53 Wound Center Nurse 2 #10 LEFT LOWER MIDCLAVICULAR POST OP -Time 12:53 -Correct Patient Yes -Correct Side, Site, Position Yes -Correct Procedure Yes -Procedure Performed Yes -Type of Procedure Debridement -Clinical Debridement Subcutaneous -Post Debridement Size (cm) - Length 0.5 -Post Debridement Size (cm) - Width 0.8 -Post Debridement Size (cm) - Depth 0.2 -Total Square Cm 0.40 -Wound/Ulcer Outcome Not Healed -Ulcer Cleansing Rinsed/ Irrigated with Saline -Foul Odor after Cleansing No -Bioengineered Tissue No -Bleeding Controlled with Pressure -Treatment Response Procedure Tolerated Well #9 mid-sternal, post op incision -Time 12:53 -Correct Patient Yes -Correct Side, Site, Position Yes -Correct Procedure No -Procedure Performed No -Type of Procedure -Clinical Debridement -Post Debridement Size (cm) - Length 0 -Post Debridement Size (cm) - Width 0 -Post Debridement Size (cm) - Depth 0 -Total Square Cm 0 -Wound/Ulcer Outcome Healed- Epithelialized -Ulcer Cleansing -Foul Odor after Cleansing -Bioengineered Tissue -Bleeding Controlled with -Treatment Response #8- RT HEEL PLANTAR ASPECT -Time -Correct Patient -Correct Side, Site, Position -Correct Procedure -Procedure Performed -Post Debridement Size (cm) - Length -Post Debridement Size (cm) - Width -Post Debridement Size (cm) - Depth -Total Square Cm -Wound/Ulcer Outcome Pain Scale: 0-10 Numeric Is Patient Pain Free? Yes Wound debrided: Left Midclavicular Wound Grade/Stage: Stage II Type of Debridement: Excisional debridement Anesthesia Used: 4% Lidocaine Solution Depth: Down to and including healthy tissue, in the subcutaneous layer Percentage of wound debrided: 100 Instrument Used: 3mm curette Tissue Removed: SLough and devitalized tissue Severity: Fat Layer Exposed Amount of bleeding with debridement: Mild Bleeding Controlled with: Pressure Patient tolerated procedure well Assessment/Plan Active Problems (Last Reviewed 11/01/17 @ 16:03 by Wilmer Cartwright) Nonhealing nonsurgical wound with fat layer exposed (Acute) Diabetes mellitus type 2 with complications (Chronic) Assessment: Nonhealing post surgical chest wounds. Right Middle and Ring finger ulcers with Fat layer exposed - Healed. Right Index finger ulcer possible due to vasoconstriction/raynaud's - Healed. Right Foot traumatic wound/ulcer with fat layer exposed -Healed. Plan: No new concerns at this time. Wound with good improvement in the past week. Debridement done as documented above, procedure was well-tolerated. Continue beau with adaptic over to midclavicular wound. Change daily. Increased protein intake/supplements also recommended. Optimal blood sugar control recommended. Advised to follow-up with PCP. 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 He was advised to call with any questions or concerns. This note was generated with [employer] software. It may contain incorrect words, spelling, and punctuation that were not noted in checking the note before signing.
== END 2018-06-16 23:59 ==
LOC: WC 11:45
PROVIDERS: Family Provider Student in an Organized Health Care Education/Training Program; PCP Student in an Organized Health Care Education/Training Program; Visit Provider Internal Medicine
DX: T81.4XXA Infection following a procedure, initial encounter (principal); E11.42 Type 2 diabetes mellitus with diabetic polyneuropathy; I25.2 Old myocardial infarction; Z79.899 Other long term (current) drug therapy
CPT/HCPCS: 11042; 87070; 87075; 87077; 87186; 87205; 99213; G0463

== ENCOUNTER 2018-06-28 09:15 | Outpatient (RCR) | payer MEDICAID, SELFPAY ==
[2018-06-17 01:41] VITALS: BP 125/75; PULSE 91; RESP 16; TEMP 37.2
[2018-06-21 12:30] VITALS: BP 110/70; PULSE 81; RESP 16; TEMP 36.8
--- NOTE | 2018-06-21 13:15 | PCM.WC.PN ---
(1) Non-healing surgical wound Status: Acute Current Visit: Yes Code(s): T81.89XA - Other complications of procedures, not elsewhere classified, initial encounter (2) Diabetes mellitus type 2 with complications Status: Chronic Current Visit: No Code(s): E11.8 - Type 2 diabetes mellitus with unspecified complications Type of Wound Date of Service: 06/21/18 Chief Complaint: Nonhealing postsurgical chest wound. History of Wound: Mr. Espinoza is a 58-year-old with past medical history as stated above who is well-known to the wound center. He was last seen here about 6 weeks ago when he was being managed for his right foot wound and hand ulcers. He however had CABG done due to an NSTEMI about 5 weeks ago. He now presents with nonhealing of the tube site and postsurgical incision site. He has applied ? Ointment given by his physician however, he has not noted any significant improvement in the wounds and so he presented here. He also attests to purulent discharge from his lateral chest wound. He has been on antibiotics with his last dose on Tuesday prior to presentation. He otherwise denies chills, fever or feeling of unwell. He is scheduled to follow-up with his cardiothoracic surgeon at the [facility] tomorrow. Progress of Wound: Improving. Mid sternal wound stays healed. - Physical Exam Vital Signs Temp Pulse Resp BP 98.2 F 81 16 110/70 06/21/18 12:30 06/21/18 12:30 06/21/18 12:30 06/21/18 12:30 General: Alert, Oriented x3, Cooperative, No apparent distress HEENT: Atraumatic Oral: Moist Mucosa Neck: Supple Lungs: Normal air movement Cardiovascular: Regular rate Abdomen: Non Tender Extremities: No cyanosis Skin: Ulcer/ Wound Wound Measurements and Assessment WC - Nurse 1 - General Ulcer Measurement Start: 06/21/18 12:30 Freq: Status: Active Protocol: Activity Type Activity Date Activity User E-Sign Co-Sign Detail Recorded Client Recorded Date Recorded By Document 06/21/18 12:30 [id number] 06/21/18 12:35 06/21/18 12:30 Wound Center Nurse 1 [Ulcer Assessment] #10 LEFT LOWER MIDCLAVICULAR POST OP -Combined with other wound No -Current Size (cm) - Length 0.1 -Current Size (cm) - Width 0.1 -Current Size (cm) - Depth 0.1 -Total Square Cm 0.01 -Photo Taken No -Epithelialization Large 67-100% -Tunneling No -Undermining/Tunneling No -Circular Undermining No -Exudate Amt None Present (0 %) -Wound Margin Fibrotic Scar, Thickened Scar -Granulation Amt Medium (34-66%) -Granulation Quality Red -Necrosis Amt Medium (34-66%) -Necrotic Tissue Type Adherent Slough -Structure Exposed None/Limited to Skin Breakdown -Texture (Mechelle-wound Skin Appearance) Assessed Scarring -Moisture (Mechelle-wound Skin Appearance No Abnormality ) Assessed -Color (Mechelle-wound Skin Appearance) No Abnormality Assessed -Temperature (Mechelle-wound Skin No Abnormality Appearance) (Pt Warm) -Tenderness on Palpation (Mechelle-wound Yes Skin Appearance) -Ulcer Cleansing Rinsed/ Irrigated with Saline -Foul Odor after Cleansing No -Anesthetic Used 5% Lidocaine Gel [Edema Assessment] -Lower Limb Edema Present NA WC - Nurse 2 - General Ulcer CM Notes Start: 06/21/18 12:30 Freq: Status: Active Protocol: Activity Type Activity Date Activity User E-Sign Co-Sign Detail Recorded Client Recorded Date Recorded By Document 06/21/18 12:48 MW [id number] 06/21/18 12:49 MW 06/21/18 12:48 Wound Center Nurse 2 [Procedure/Treatment] #10 LEFT LOWER MIDCLAVICULAR POST OP -Time 12:48 -Correct Patient Yes -Correct Side, Site, Position Yes -Correct Procedure Yes -Procedure Performed Yes -Type of Procedure Debridement -Clinical Debridement Subcutaneous -Post Debridement Size (cm) - Length 0.2 -Post Debridement Size (cm) - Width 0.3 -Post Debridement Size (cm) - Depth 0.1 -Total Square Cm 0.06 -Wound/Ulcer Outcome Not Healed -Ulcer Cleansing Rinsed/ Irrigated with Saline -Foul Odor after Cleansing No -Bioengineered Tissue No -Bleeding Controlled with Pressure -Treatment Response Procedure Tolerated Well [See Physician Procedure note for Specifics] Pain Scale: 0-10 Numeric [Pain] -Is Patient Pain Free? Yes Musculoskeletal: No Muscle Wasting Neurological: Cranial nerves II-XII grossly intact Psych/Mental Status: Normal Affect Debridement Note Post-Debridement Measurements/Treatment WC - Nurse 2 - General Ulcer CM Notes Start: 06/21/18 12:30 Freq: Status: Active Protocol: Activity Type Activity Date Activity User E-Sign Co-Sign Detail Recorded Client Recorded Date Recorded By Document 06/21/18 12:48 MW [id number] 06/21/18 12:49 MW 06/21/18 12:48 Wound Center Nurse 2 #10 LEFT LOWER MIDCLAVICULAR POST OP -Time 12:48 -Correct Patient Yes -Correct Side, Site, Position Yes -Correct Procedure Yes -Procedure Performed Yes -Type of Procedure Debridement -Clinical Debridement Subcutaneous -Post Debridement Size (cm) - Length 0.2 -Post Debridement Size (cm) - Width 0.3 -Post Debridement Size (cm) - Depth 0.1 -Total Square Cm 0.06 -Wound/Ulcer Outcome Not Healed -Ulcer Cleansing Rinsed/ Irrigated with Saline -Foul Odor after Cleansing No -Bioengineered Tissue No -Bleeding Controlled with Pressure -Treatment Response Procedure Tolerated Well Pain Scale: 0-10 Numeric Is Patient Pain Free? Yes Wound debrided: Left mid clavicular Wound Grade/Stage: Stage II Type of Debridement: Excisional debridement Anesthesia Used: 4% Lidocaine Solution Depth: Down to and including healthy tissue, in the subcutaneous layer Percentage of wound debrided: 100 Instrument Used: 3mm curette Tissue Removed: Slough and devitalized tissue Severity: Fat Layer Exposed Amount of bleeding with debridement: Mild Bleeding Controlled with: Pressure Patient tolerated procedure well Assessment/Plan Active Problems (Last Reviewed 11/01/17 @ 16:03 by Wilmer Cartwright) Non-healing surgical wound (Acute) Assessment: Nonhealing post surgical chest wounds. Right Middle and Ring finger ulcers with Fat layer exposed - Healed. Right Index finger ulcer possible due to vasoconstriction/raynaud's - Healed. Right Foot traumatic wound/ulcer with fat layer exposed -Healed. Plan: No new concerns at this time. Wound with continued good improvement in the past week. Debridement done as documented above, procedure was well-tolerated. Continue beau with adaptic over to midclavicular wound. Change daily. Increased protein intake/supplements also recommended. Optimal blood sugar control recommended. Advised to follow-up with PCP. 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 He was advised to call with any questions or concerns. This note was generated with [employer] software. It may contain incorrect words, spelling, and punctuation that were not noted in checking the note before signing.
--- NOTE | 2018-06-21 13:18 | PN.PCM_ITS ---
(1) Non-healing surgical wound Status: Acute Current Visit: Yes Code(s): T81.89XA - Other complications of procedures, not elsewhere classified, initial encounter (2) Diabetes mellitus type 2 with complications Status: Chronic Current Visit: No Code(s): E11.8 - Type 2 diabetes mellitus with unspecified complications Type of Wound Date of Service: 06/21/18 Chief Complaint: Nonhealing postsurgical chest wound. History of Wound: Mr. Espinoza is a 58-year-old with past medical history as stated above who is well-known to the wound center. He was last seen here about 6 weeks ago when he was being managed for his right foot wound and hand ulcers. He however had CABG done due to an NSTEMI about 5 weeks ago. He now presents with nonhealing of the tube site and postsurgical incision site. He has applied ? Ointment given by his physician however, he has not noted any significant improvement in the wounds and so he presented here. He also attests to purulent discharge from his lateral chest wound. He has been on antibiotics with his last dose on Tuesday prior to presentation. He otherwise denies chills, fever or feeling of unwell. He is scheduled to follow-up with his cardiothoracic surgeon at the [facility] tomorrow. Progress of Wound: Improving. Mid sternal wound stays healed. - Physical Exam Vital Signs Temp Pulse Resp BP 98.2 F 81 16 110/70 06/21/18 12:30 06/21/18 12:30 06/21/18 12:30 06/21/18 12:30 General: Alert, Oriented x3, Cooperative, No apparent distress HEENT: Atraumatic Oral: Moist Mucosa Neck: Supple Lungs: Normal air movement Cardiovascular: Regular rate Abdomen: Non Tender Extremities: No cyanosis Skin: Ulcer/ Wound Wound Measurements and Assessment WC - Nurse 1 - General Ulcer Measurement Start: 06/21/18 12:30 Freq: Status: Active Protocol: Activity Type Activity Date Activity User E-Sign Co-Sign Detail Recorded Client Recorded Date Recorded By Document 06/21/18 12:30 [id number] 06/21/18 12:35 06/21/18 12:30 Wound Center Nurse 1 [Ulcer Assessment] #10 LEFT LOWER MIDCLAVICULAR POST OP -Combined with other wound No -Current Size (cm) - Length 0.1 -Current Size (cm) - Width 0.1 -Current Size (cm) - Depth 0.1 -Total Square Cm 0.01 -Photo Taken No -Epithelialization Large 67-100% -Tunneling No -Undermining/Tunneling No -Circular Undermining No -Exudate Amt None Present (0 %) -Wound Margin Fibrotic Scar, Thickened Scar -Granulation Amt Medium (34-66%) -Granulation Quality Red -Necrosis Amt Medium (34-66%) -Necrotic Tissue Type Adherent Slough -Structure Exposed None/Limited to Skin Breakdown -Texture (Mechelle-wound Skin Appearance) Assessed Scarring -Moisture (Mechelle-wound Skin Appearance No Abnormality ) Assessed -Color (Mechelle-wound Skin Appearance) No Abnormality Assessed -Temperature (Mechelle-wound Skin No Abnormality Appearance) (Pt Warm) -Tenderness on Palpation (Mechelle-wound Yes Skin Appearance) -Ulcer Cleansing Rinsed/ Irrigated with Saline -Foul Odor after Cleansing No -Anesthetic Used 5% Lidocaine Gel [Edema Assessment] -Lower Limb Edema Present NA WC - Nurse 2 - General Ulcer CM Notes Start: 06/21/18 12:30 Freq: Status: Active Protocol: Activity Type Activity Date Activity User E-Sign Co-Sign Detail Recorded Client Recorded Date Recorded By Document 06/21/18 12:48 MW [id number] 06/21/18 12:49 MW 06/21/18 12:48 Wound Center Nurse 2 [Procedure/Treatment] #10 LEFT LOWER MIDCLAVICULAR POST OP -Time 12:48 -Correct Patient Yes -Correct Side, Site, Position Yes -Correct Procedure Yes -Procedure Performed Yes -Type of Procedure Debridement -Clinical Debridement Subcutaneous -Post Debridement Size (cm) - Length 0.2 -Post Debridement Size (cm) - Width 0.3 -Post Debridement Size (cm) - Depth 0.1 -Total Square Cm 0.06 -Wound/Ulcer Outcome Not Healed -Ulcer Cleansing Rinsed/ Irrigated with Saline -Foul Odor after Cleansing No -Bioengineered Tissue No -Bleeding Controlled with Pressure -Treatment Response Procedure Tolerated Well [See Physician Procedure note for Specifics] Pain Scale: 0-10 Numeric [Pain] -Is Patient Pain Free? Yes Musculoskeletal: No Muscle Wasting Neurological: Cranial nerves II-XII grossly intact Psych/Mental Status: Normal Affect Debridement Note Post-Debridement Measurements/Treatment WC - Nurse 2 - General Ulcer CM Notes Start: 06/21/18 12:30 Freq: Status: Active Protocol: Activity Type Activity Date Activity User E-Sign Co-Sign Detail Recorded Client Recorded Date Recorded By Document 06/21/18 12:48 MW [id number] 06/21/18 12:49 MW 06/21/18 12:48 Wound Center Nurse 2 #10 LEFT LOWER MIDCLAVICULAR POST OP -Time 12:48 -Correct Patient Yes -Correct Side, Site, Position Yes -Correct Procedure Yes -Procedure Performed Yes -Type of Procedure Debridement -Clinical Debridement Subcutaneous -Post Debridement Size (cm) - Length 0.2 -Post Debridement Size (cm) - Width 0.3 -Post Debridement Size (cm) - Depth 0.1 -Total Square Cm 0.06 -Wound/Ulcer Outcome Not Healed -Ulcer Cleansing Rinsed/ Irrigated with Saline -Foul Odor after Cleansing No -Bioengineered Tissue No -Bleeding Controlled with Pressure -Treatment Response Procedure Tolerated Well Pain Scale: 0-10 Numeric Is Patient Pain Free? Yes Wound debrided: Left mid clavicular Wound Grade/Stage: Stage II Type of Debridement: Excisional debridement Anesthesia Used: 4% Lidocaine Solution Depth: Down to and including healthy tissue, in the subcutaneous layer Percentage of wound debrided: 100 Instrument Used: 3mm curette Tissue Removed: Slough and devitalized tissue Severity: Fat Layer Exposed Amount of bleeding with debridement: Mild Bleeding Controlled with: Pressure Patient tolerated procedure well Assessment/Plan Active Problems (Last Reviewed 11/01/17 @ 16:03 by Wilmer Cartwright) Non-healing surgical wound (Acute) Assessment: Nonhealing post surgical chest wounds. Right Middle and Ring finger ulcers with Fat layer exposed - Healed. Right Index finger ulcer possible due to vasoconstriction/raynaud's - Healed. Right Foot traumatic wound /ulcer with fat layer exposed -Healed. Plan: No new concerns at this time. Wound with continued good improvement in the past week. Debridement done as documented above, procedure was well- tolerated. Continue beau with adaptic over to midclavicular wound. Change daily. Increased protein intake/supplements also recommended. Optimal blood sugar control recommended. Advised to follow-up with PCP. 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 He was advised to call with any questions or concerns. This note was generated with [employer] software. It may contain incorrect words, spelling, and punctuation that were not noted in checking the note before signing.
[2018-06-28 09:22] VITALS: BP 117/70; PULSE 84; RESP 18; TEMP 36.5
--- NOTE | 2018-06-28 09:36 | PCM.WC.PN ---
(1) Non-healing surgical wound Status: Acute Current Visit: Yes Code(s): T81.89XA - Other complications of procedures, not elsewhere classified, initial encounter (2) Diabetes mellitus type 2 with complications Status: Chronic Current Visit: No Code(s): E11.8 - Type 2 diabetes mellitus with unspecified complications Type of Wound Date of Service: 06/28/18 Chief Complaint: Nonhealing postsurgical chest wound. History of Wound: Mr. Espinoza is a 58-year-old with past medical history as stated above who is well-known to the wound center. He was last seen here about 6 weeks ago when he was being managed for his right foot wound and hand ulcers. He however had CABG done due to an NSTEMI about 5 weeks ago. He now presents with nonhealing of the tube site and postsurgical incision site. He has applied ? Ointment given by his physician however, he has not noted any significant improvement in the wounds and so he presented here. He also attests to purulent discharge from his lateral chest wound. He has been on antibiotics with his last dose on Tuesday prior to presentation. He otherwise denies chills, fever or feeling of unwell. He is scheduled to follow-up with his cardiothoracic surgeon at the [facility] tomorrow. Progress of Wound: Healed. - Physical Exam Vital Signs Temp Pulse Resp BP 97.7 F L 84 18 117/70 06/28/18 09:22 06/28/18 09:22 06/28/18 09:22 06/28/18 09:22 General: Alert, Oriented x3, Cooperative, No apparent distress HEENT: Atraumatic Oral: Moist Mucosa Neck: Supple Lungs: Normal air movement Abdomen: Soft, Non Tender Extremities: No cyanosis Wound Measurements and Assessment WC - Nurse 1 - General Ulcer Measurement Start: 06/21/18 12:30 Freq: Status: Active Protocol: Activity Type Activity Date Activity User E-Sign Co-Sign Detail Recorded Client Recorded Date Recorded By Document 06/28/18 09:22 DELL [id number] 06/28/18 09:27 DL 06/28/18 09:22 Wound Center Nurse 1 [Ulcer Assessment] #10 LEFT LOWER MIDCLAVICULAR POST OP -Current Size (cm) - Length 0 -Current Size (cm) - Width 0 -Current Size (cm) - Depth 0 -Total Square Cm 0 -Photo Taken Yes -Exudate Amt None Present (0 %) -Wound Margin Flat & Intact -Granulation Amt Large (67-100%) -Granulation Quality Percival -Necrosis Amt None Present (0 %) -Structure Exposed N/A -Texture (Mechelle-wound Skin Appearance) Scarring -Moisture (Mechelle-wound Skin Appearance No Abnormality ) -Color (Mechelle-wound Skin Appearance) No Abnormality -Temperature (Mechelle-wound Skin No Abnormality Appearance) (Pt Warm) -Ulcer Cleansing Rinsed/ Irrigated with Saline -Foul Odor after Cleansing No WC - Nurse 2 - General Ulcer CM Notes Start: 06/21/18 12:30 Freq: Status: Active Protocol: Activity Type Activity Date Activity User E-Sign Co-Sign Detail Recorded Client Recorded Date Recorded By Document 06/28/18 09:33 MW [id number] 06/28/18 09:34 MW 06/28/18 09:33 Wound Center Nurse 2 [Procedure/Treatment] -Time 09:33 -Correct Patient Yes -Correct Side, Site, Position Yes -Correct Procedure No -Procedure Performed No -Post Debridement Size (cm) - Length 0 -Post Debridement Size (cm) - Width 0 -Post Debridement Size (cm) - Depth 0 -Total Square Cm 0 -Wound/Ulcer Outcome Healed- Epithelialized -Ulcer Cleansing Rinsed/ Irrigated with Saline -Foul Odor after Cleansing No -Bleeding Controlled with NA -Treatment Response Procedure Tolerated Well [See Physician Procedure note for Specifics] Pain Scale: 0-10 Numeric [Pain] -Is Patient Pain Free? Yes Musculoskeletal: No Muscle Wasting Neurological: Cranial nerves II-XII grossly intact Psych/Mental Status: Normal Affect Debridement Note Post-Debridement Measurements/Treatment WC - Nurse 2 - General Ulcer CM Notes Start: 06/21/18 12:30 Freq: Status: Active Protocol: Activity Type Activity Date Activity User E-Sign Co-Sign Detail Recorded Client Recorded Date Recorded By Document 06/21/18 12:48 MW [id number] 06/21/18 12:49 MW Document 06/28/18 09:33 MW [id number] 06/28/18 09:34 MW 06/21/18 06/28/18 12:48 09:33 Wound Center Nurse 2 #10 LEFT LOWER MIDCLAVICULAR POST OP -Time 12:48 09:33 -Correct Patient Yes Yes -Correct Side, Site, Position Yes Yes -Correct Procedure Yes No -Procedure Performed Yes No -Type of Procedure Debridement -Clinical Debridement Subcutaneous -Post Debridement Size (cm) - Length 0.2 0 -Post Debridement Size (cm) - Width 0.3 0 -Post Debridement Size (cm) - Depth 0.1 0 -Total Square Cm 0.06 0 -Wound/Ulcer Outcome Not Healed Healed- Epithelialized -Ulcer Cleansing Rinsed/ Rinsed/ Irrigated with Irrigated with Saline Saline -Foul Odor after Cleansing No No -Bioengineered Tissue No -Bleeding Controlled with Pressure NA -Treatment Response Procedure Procedure Tolerated Well Tolerated Well Pain Scale: 0-10 Numeric Is Patient Pain Free? Yes Yes No debridement was completed today Assessment/Plan Active Problems (Last Reviewed 11/01/17 @ 16:03 by Wilmer Cartwright) Non-healing surgical wound (Acute) Assessment: Post surgical chest wounds. - Healed. Right Middle and Ring finger ulcers with Fat layer exposed - Healed. Right Index finger ulcer possible due to vasoconstriction/raynaud's - Healed. Right Foot traumatic wound/ulcer with fat layer exposed -Healed. Plan: Post surgical wounds have healed. Continue adaptic over top x 2 weeks. Increased protein intake/supplements also recommended. Optimal blood sugar control recommended. Advised to follow-up with PCP. Discharged from the wound clinic. He was advised to call with any questions or concerns. This note was generated with [employer] software. It may contain incorrect words, spelling, and punctuation that were not noted in checking the note before signing.
--- NOTE | 2018-06-28 09:39 | PN.PCM_ITS ---
(1) Non-healing surgical wound Status: Acute Current Visit: Yes Code(s): T81.89XA - Other complications of procedures, not elsewhere classified, initial encounter (2) Diabetes mellitus type 2 with complications Status: Chronic Current Visit: No Code(s): E11.8 - Type 2 diabetes mellitus with unspecified complications Type of Wound Date of Service: 06/28/18 Chief Complaint: Nonhealing postsurgical chest wound. History of Wound: Mr. Espinoza is a 58-year-old with past medical history as stated above who is well-known to the wound center. He was last seen here about 6 weeks ago when he was being managed for his right foot wound and hand ulcers. He however had CABG done due to an NSTEMI about 5 weeks ago. He now presents with nonhealing of the tube site and postsurgical incision site. He has applied ? Ointment given by his physician however, he has not noted any significant improvement in the wounds and so he presented here. He also attests to purulent discharge from his lateral chest wound. He has been on antibiotics with his last dose on Tuesday prior to presentation. He otherwise denies chills, fever or feeling of unwell. He is scheduled to follow-up with his cardiothoracic surgeon at the [facility] tomorrow. Progress of Wound: Healed. - Physical Exam Vital Signs Temp Pulse Resp BP 97.7 F L 84 18 117/70 06/28/18 09:22 06/28/18 09:22 06/28/18 09:22 06/28/18 09:22 General: Alert, Oriented x3, Cooperative, No apparent distress HEENT: Atraumatic Oral: Moist Mucosa Neck: Supple Lungs: Normal air movement Abdomen: Soft, Non Tender Extremities: No cyanosis Wound Measurements and Assessment WC - Nurse 1 - General Ulcer Measurement Start: 06/21/18 12:30 Freq: Status: Active Protocol: Activity Type Activity Date Activity User E-Sign Co-Sign Detail Recorded Client Recorded Date Recorded By Document 06/28/18 09:22 DELL [id number] 06/28/18 09:27 DL 06/28/18 09:22 Wound Center Nurse 1 [Ulcer Assessment] #10 LEFT LOWER MIDCLAVICULAR POST OP -Current Size (cm) - Length 0 -Current Size (cm) - Width 0 -Current Size (cm) - Depth 0 -Total Square Cm 0 -Photo Taken Yes -Exudate Amt None Present (0 %) -Wound Margin Flat & Intact -Granulation Amt Large (67-100%) -Granulation Quality Ellis -Necrosis Amt None Present (0 %) -Structure Exposed N/A -Texture (Mechelle-wound Skin Appearance) Scarring -Moisture (Mechelle-wound Skin Appearance No Abnormality ) -Color (Mechelle-wound Skin Appearance) No Abnormality -Temperature (Mechelle-wound Skin No Abnormality Appearance) (Pt Warm) -Ulcer Cleansing Rinsed/ Irrigated with Saline -Foul Odor after Cleansing No WC - Nurse 2 - General Ulcer CM Notes Start: 06/21/18 12:30 Freq: Status: Active Protocol: Activity Type Activity Date Activity User E-Sign Co-Sign Detail Recorded Client Recorded Date Recorded By Document 06/28/18 09:33 MW [id number] 06/28/18 09:34 MW 06/28/18 09:33 Wound Center Nurse 2 [Procedure/Treatment] -Time 09:33 -Correct Patient Yes -Correct Side, Site, Position Yes -Correct Procedure No -Procedure Performed No -Post Debridement Size (cm) - Length 0 -Post Debridement Size (cm) - Width 0 -Post Debridement Size (cm) - Depth 0 -Total Square Cm 0 -Wound/Ulcer Outcome Healed- Epithelialized -Ulcer Cleansing Rinsed/ Irrigated with Saline -Foul Odor after Cleansing No -Bleeding Controlled with NA -Treatment Response Procedure Tolerated Well [See Physician Procedure note for Specifics] Pain Scale: 0-10 Numeric [Pain] -Is Patient Pain Free? Yes Musculoskeletal: No Muscle Wasting Neurological: Cranial nerves II-XII grossly intact Psych/Mental Status: Normal Affect Debridement Note Post-Debridement Measurements/Treatment WC - Nurse 2 - General Ulcer CM Notes Start: 06/21/18 12:30 Freq: Status: Active Protocol: Activity Type Activity Date Activity User E-Sign Co-Sign Detail Recorded Client Recorded Date Recorded By Document 06/21/18 12:48 MW [id number] 06/21/18 12:49 MW Document 06/28/18 09:33 MW [id number] 06/28/18 09:34 MW 06/21/18 06/28/18 12:48 09:33 Wound Center Nurse 2 #10 LEFT LOWER MIDCLAVICULAR POST OP -Time 12:48 09:33 -Correct Patient Yes Yes -Correct Side, Site, Position Yes Yes -Correct Procedure Yes No -Procedure Performed Yes No -Type of Procedure Debridement -Clinical Debridement Subcutaneous -Post Debridement Size (cm) - Length 0.2 0 -Post Debridement Size (cm) - Width 0.3 0 -Post Debridement Size (cm) - Depth 0.1 0 -Total Square Cm 0.06 0 -Wound/Ulcer Outcome Not Healed Healed- Epithelialized -Ulcer Cleansing Rinsed/ Rinsed/ Irrigated with Irrigated with Saline Saline -Foul Odor after Cleansing No No -Bioengineered Tissue No -Bleeding Controlled with Pressure NA -Treatment Response Procedure Procedure Tolerated Well Tolerated Well Pain Scale: 0-10 Numeric Is Patient Pain Free? Yes Yes No debridement was completed today Assessment/Plan Active Problems (Last Reviewed 11/01/17 @ 16:03 by Wilmer Cartwright) Non-healing surgical wound (Acute) Assessment: Post surgical chest wounds. - Healed. Right Middle and Ring finger ulcers with Fat layer exposed - Healed. Right Index finger ulcer possible due to vasoconstriction/raynaud's - Healed. Right Foot traumatic wound/ulcer with fat layer exposed -Healed. Plan: Post surgical wounds have healed. Continue adaptic over top x 2 weeks. Increased protein intake/supplements also recommended. Optimal blood sugar control recommended. Advised to follow-up with PCP. Discharged from the wound clinic. He was advised to call with any questions or concerns. This note was generated with [employer] software. It may contain incorrect words, spelling, and punctuation that were not noted in checking the note before signing.
== END 2018-07-16 23:59 ==
LOC: WC 09:15
PROVIDERS: Family Provider Student in an Organized Health Care Education/Training Program; PCP Student in an Organized Health Care Education/Training Program; Visit Provider Internal Medicine
DX: T81.89XA Other complications of procedures, not elsewhere classified, initial encounter (principal); E11.9 Type 2 diabetes mellitus without complications; I25.2 Old myocardial infarction; Z95.1 Presence of aortocoronary bypass graft
CPT/HCPCS: 11042; 99212; G0463

== ENCOUNTER → 2018-07-06 10:20 | Outpatient (CLI) | payer MEDICAID, SELFPAY ==
--- NOTE | 2018-07-06 10:32 | PCM.CR.ITP ---
General Information - General Information Admitting Diagnosis: NSTEMI, CABG @ [facility] - Education/Goals Barriers to Learning: Vision Impairment Individual Counseling: Initial Assessment: Nicotine/Smoking - chew, High Blood Pressure, Overweight/Obesity - BMI 28-29%, Diabetes Cardiac Rehabilitation Goals: 1. Maintain the individual as the primary focus of care. 2. To improve the patient's quality of life. 3. Identification of cardiac risk factors and provide cardiac risk factor management. 4. Enhance the psychosocial status of the patient. 5. Reconditioning enough to allow the patient to resume customary activities. 6. Control symptoms of cardiac disease Scale for measuring improvement of personal goals: Enter appropriate number in Comments. 2 = Unchanged. 3 = Slightly Better. 4 = Moderate Improvement. 5 = Met my Goal Personal Goals: Initial Assessment: Improve energy level, Participate in home exercise program, Get back to work, or to resume activities faster, Improve muscle strength and endurance, Improve diet and eating habits (eat healthier), Control risk factors (learn risk factor modification), Other goal: - Lose 25-30 pounds Exercise - Initial Assessment - Visit Date of Eval: 07/06/18 Session #:: 0 - initial evaluation - Stages of Change Stages of Change:: Action - Exercise Prescription Mode:: Treadmill, Airdyne, NuStep Target Heart Rate:: 114-122 - Hypertension Do any of the following apply?: Yes, Medication Resting Blood Pressure:: 118/64 - Intervention Home Exercise/Activity Goal:: Moderate Exercise 30 min/day x 5 days/wk - Education Goals:: Warm-up, RPE TIFFANI Scale, S/S, Safe Exercise, Self-Monitoring - Exercise Program Goals Exercise Program Goals: Aerobic Activity >30 min Nutrition - Initial Assessment - Program Goals Nutrition Program Goals: LDL <70. Total Cholesterol <200. HDL >45. Triglycerides <150. HgbA1C <7%. BMI <25 - Diabetes Diabetes:: Yes Insulin: Yes Non-Insulin Dependent?: No Do you monitor your blood sugar at home?: Yes - Weight Management Height: 5 ft 10 in Weight:: 197 lb Body Fat %:: 28.1 - Intervention Referral to dietitian:: Yes - Patient would like to see Nutritional Services Referral to Diabetic Clinic:: Yes Will attend diet classes:: Yes - Education Gave educational materials for:: Signs & symptoms of hypoglycemia, Signs & symptoms of hyperglycemia, Relate diabetes to coronary artery disease, Healthy eating Tobacco - Initial Assessment - Program Goals Tobacco Program Goals: Complete smoking cessation. Attend education classes. Improve Knowledge Test score - Stage of Change Stages of Change:: Action - Learning Barriers Learning Barriers: Vision, Ready to Learn - Family Support Do you have family support?: Yes - Tobacco Use Tobacco Use: Chew How many cigarettes do you smoke per day?: 0.5 - 1/2 can chew daily Years Smokin Do you use smokeless tobacco?: Yes - Intervention Smoking Cessation Referral:: Yes Education Schedule Given:: Yes - Education Gave educational material for:: Tobacco triggers, Coronary artery disease, Risk factors, Sexuality, Medical compliance, Cardiac A&P, Angina signs & symptoms Psychosocial - Initial Assess - Target Goals Target Goals: Assess presence or absence of depression. Using a valid screening tool, maximizes coping skills. Positive support system - Stages of Change Stages of Change:: Action - Psychosocial Test Tool Used:: HANDS Depression Questionnaire Self-reported stress:: not stress but frustration and dealing with CC - Intervention PS - Interventions: Yes Attend Stress Management Classes, No Referral to Mental Health, No Referral to [facility] Case Management, No Referral to Physician, No Uses Stress Management Skills - Education Gave educational materials for:: Coping techniques, Signs & symptoms of depression, Stress management, Relaxation techniques - Patient/Program Goal Preventative Medication(s):: Aspirin, Clopidogrel, Beta kurt - Assistive Devices Assistive Devices:: None Fall Risk Assessed:: Yes Patient Health Questionnaire Initial Assessment 1. Little interest or pleasure in doing things: Not at all 2. Feeling down, depressed, or hopeless: Not at all 3. Trouble falling or staying asleep, or sleeping too much: Nearly every day 4. Feeling tired or having little energy: Not at all 5. Poor appetite or overeating: Several days 6. Feeling bad about yourself -- or that you are a failure or have let yourself or your family down: Not at all 7. Trouble concentrating on things, such as reading the newspaper or watching television: Not at all 8. Moving or speaking so slowly that other people could have noticed. Or the opposite - being so fidgety or restless that you have been moving around a lot more than usual: Nearly every day 9. Thoughts that you would be better off , or of hurting yourself in some way: Not at all How difficult have these problems made it for you to do your work, take care of things at home, or get along with other people?: Not difficult at all Total Score: 7 FATMATA-Q SV Test - Statements CAD is a disease of the arteries in the heart: False Examples of risk factors for heart disease: True Angina is chest pain or discomfort: True The benefits of resistance training include: True Eating more meat and dairy products: False Anti-platelet medications such as aspirin are important: True The only effective way to manage stress: False An exercise warm-up slowly increases heart rate: True Prepared, processed foods usually have high sodium: True Depression is common after a heart attack: True The statin medications lower cholesterol: True To control blood pressure, lower the amount of sodium: True If someone gets chest discomfort during walking: False Transfats are partially hydrogenated vegetable oils: True Sleep apnea that is not treated increases the risk: True To control cholesterol, one should become a vegetarian: False Someone knows if he/she is exercising at the right level: True Diabetes cannot be prevented with exercise & health eating: False Stress is a large risk for heart attack: True A diet that can help lower blood pressure is rich in: True - Total Score Total Correct Responses: 19 Self-Efficacy Initial Assessment We would like to know how confident you are in doing certain activities. Please select your confidence level for:: Select your confidence level for the following using the scale 1-10 where 1 is not at all confident and 10 is totally confident. Your score is the average of all 6 responses. Fatigue: How confident are you that you can keep the fatigue caused by your disease from interfering with the things you want to do? Select Number: 10 Physical Discomfort or Pain: How confident are you that you can keep the physical discomfort or pain of your disease from interfering with the things you want to do? Select Number: 6 Emotional Distress: How confident are you that you can keep the emotional distress caused by your disease from interfering with the things you want to do? Select Number: 10 Other Symptoms or Health Problems: How confident are you that you can keep other symptoms or health problems from interfering with the things you want to do? Select Number: 6 Different Tasks and Activities: How confident are you that you can do the different tasks and activities needed to manage your health condition so as to reduce your need to see a doctor? Select Number: 10 Medication: How confident are you that you can do things other than just taking medication to reduce how much your illness affects your everyday life? Select Number: 4 Total Score:: 7 Nutrition Survey - Nutrition Survey Instructions Scoring Instructions: Scoring is as follows: Yes = 1 points. No = 0 point. Patient score that is >/=12 is considered to be at potential nutritional risk and could benefit from a referral to a registered dietitian. - Nutrition Survey Initial Have you lost >10 lbs over the past 2 months without trying?: No Are you following a special diet at home for diabetes, low fat, or low salt?: No Are you interested in meeting with a dietitian for help understanding your diet?: Yes Do you eat less than 3 meals a day?: Yes Do you eat fatty meats (abad, sausage, ribs, etc), fried foods, desserts, large amounts of salad dressings, margarine, butter, or cheese most days?: Yes Do you have food allergies? [Enter types in comment field]: No Do you eat in restaurants more than 3 times a week?: No Do you season food with salt, seasoning salt, or garlic salt?: Yes Do you used canned, boxed, frozen meals, or soups, seasoning packets?: Yes Total Score:: 5
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
[2018-07-06 10:59] VITALS: BP 118/64; PULSE 71; RESP 16; TEMP 37.1; O2SAT 97; BMI 28.3
[2018-07-06 11:39] VITALS: BP 118/64
[2018-07-24 11:41] LABS: Bedside Glucose 76 mg/dL (70-110)
== END ==
PROVIDERS: Family Provider Student in an Organized Health Care Education/Training Program; PCP Student in an Organized Health Care Education/Training Program
DX: I25.10 Atherosclerotic heart disease of native coronary artery without angina pectoris (principal); I25.2 Old myocardial infarction; Z95.1 Presence of aortocoronary bypass graft
CPT/HCPCS: 82962

== ENCOUNTER 2018-07-14 10:15 | Outpatient (RCR) | payer MEDICAID, SELFPAY | END 2018-07-16 23:59 | LOC: CR 10:15 | PROVIDERS: Family Provider Student in an Organized Health Care Education/Training Program; PCP Student in an Organized Health Care Education/Training Program; Visit Provider Internal Medicine Cardiovascular Disease | DX: I25.10 Atherosclerotic heart disease of native coronary artery without angina pectoris (principal); I21.4 Non-ST elevation (NSTEMI) myocardial infarction; Z95.1 Presence of aortocoronary bypass graft | CPT/HCPCS: 93798 ==

== ENCOUNTER 2018-08-16 10:15 | Outpatient (RCR) | payer MEDICAID, SELFPAY ==
--- NOTE | 2018-08-04 09:24 | CR.ITP_ITS ---
General Information - General Information Admitting Diagnosis: NSTEMI, CABG - Education/Goals Cardiac Rehabilitation Goals: 1. Maintain the individual as the primary focus of care. 2. To improve the patient's quality of life. 3. Identification of cardiac risk factors and provide cardiac risk factor management. 4. Enhance the psychosocial status of the patient. 5. Reconditioning enough to allow the patient to resume customary activities. 6. Control symptoms of cardiac disease Scale for measuring improvement of personal goals: Enter appropriate number in Comments. 2 = Unchanged. 3 = Slightly Better. 4 = Moderate Improvement. 5 = Met my Goal Exercise - 30-day Assessment - Visit Date of Eval: 08/04/18 Session #:: 11 - Stages of Change Stages of Change:: Action - Exercise Prescription Mode:: Treadmill, Rower, NuStep Frequency (x/week): 3 Duration:: 30 METs - Progression: 0.5-1 MET as tolerated: 3.5 Target Heart Rate:: 114-122 - Hypertension Resting Blood Pressure:: 118/72 Peak Exercise Blood Pressure:: 140/90 - Intervention Home Exercise/Activity Goal:: Sitting Time <3 hrs/day - Education Goals:: Warm-up, RPE TIFFANI Scale, S/S, Safe Exercise, Self-Monitoring - Exercise Program Goals Exercise Program Goals: Aerobic Activity >30 min, B/P <130/80 Nutrition - Initial Assessment - Program Goals Nutrition Program Goals: LDL <70. Total Cholesterol <200. HDL >45. Triglycerides <150. HgbA1C <7%. BMI <25 - Diabetes Do you monitor your blood sugar at home?: Yes Nutrition - 30-Day Assessment - Program Goals Nutrition Program Goals: LDL <70. Total Cholesterol <200. HDL >45. Triglycerides <150. HgbA1C <7%. BMI <25 - Visit Date of Eval: 08/04/18 - Stages of Change Stages of Change:: Action - Diabetes Diabetes:: Yes - Weight Management Weight:: 89.358 kg - Intervention Referral to dietitian:: Yes Referral to Diabetic Clinic:: Yes Will attend diet classes:: Yes - Education Attended class for:: Signs & symptoms of hypoglycemia, Signs & symptoms of hyperglycemia, Relate diabetes to coronary artery disease, Healthy eating Tobacco - Initial Assessment - Program Goals Tobacco Program Goals: Complete smoking cessation. Attend education classes. Improve Knowledge Test score - Learning Barriers Learning Barriers: Vision, Ready to Learn Tobacco - 30-Day Assessment - Program Goals Tobacco Program Goals: Complete smoking cessation. Attend education classes. Improve Knowledge Test score - Stage of Change Stages of Change:: Action - Learning Barriers Learning Barriers: Participates in education - Family Support Do you have family support?: Yes - Tobacco Use Tobacco Use: Chew - Intervention Smoking Cessation Referral:: Yes Education Schedule Given:: Yes - Education Attended class for:: Tobacco triggers, Coronary artery disease, Risk factors, Sexuality, Medical compliance, Cardiac A&P, Angina signs & symptoms Psychosocial - Initial Assess - Target Goals Target Goals: Assess presence or absence of depression. Using a valid screening tool, maximizes coping skills. Positive support system - Psychosocial Test Tool Used:: HANDS Depression Questionnaire - Assistive Devices Fall Risk Assessed:: Yes Psychosocial - 30-Day Assess - Target Goals Target Goals: Assess presence or absence of depression. Using a valid screening tool, maximizes coping skills. Positive support system - Stages of Change Stages of Change:: Action - Psychosocial Test Tool Used:: HANDS Depression Questionnaire - Intervention PS - Interventions: Yes Attend Stress Management Classes, Yes Uses Stress Management Skills, No Referral to Mental Health, No Referral to [facility] Case Management, No Referral to Physician - Education Attended classes for:: Coping techniques, Signs & symptoms of depression, Stress management, Relaxation techniques - Assistive Devices Assistive Devices:: None Fall Risk Assessed:: Yes Patient Health Questionnaire 30-Day Re-eval Assessment 1. Little interest or pleasure in doing things: Not at all 2. Feeling down, depressed, or hopeless: Not at all 3. Trouble falling or staying asleep, or sleeping too much: Nearly every day 4. Feeling tired or having little energy: Not at all 5. Poor appetite or overeating: Several days 6. Feeling bad about yourself -- or that you are a failure or have let yourself or your family down: Not at all 7. Trouble concentrating on things, such as reading the newspaper or watching television: Not at all 8. Moving or speaking so slowly that other people could have noticed. Or the opposite - being so fidgety or restless that you have been moving around a lot more than usual: Nearly every day 9. Thoughts that you would be better off , or of hurting yourself in some way: Not at all How difficult have these problems made it for you to do your work, take care of things at home, or get along with other people?: Not difficult at all Total Score: 7 Self-Efficacy 30-Day Re-eval Assessment We would like to know how confident you are in doing certain activities. Please select your confidence level for:: Select your confidence level for the following using the scale 1-10 where 1 is not at all confident and 10 is totally confident. Your score is the average of all 6 responses. Fatigue: How confident are you that you can keep the fatigue caused by your disease from interfering with the things you want to do? Select Number: 10 Physical Discomfort or Pain: How confident are you that you can keep the physical discomfort or pain of your disease from interfering with the things you want to do? Select Number: 7 Emotional Distress: How confident are you that you can keep the emotional distress caused by your disease from interfering with the things you want to do? Select Number: 10 Other Symptoms or Health Problems: How confident are you that you can keep other symptoms or health problems from interfering with the things you want to do? Select Number: 6 Different Tasks and Activities: How confident are you that you can do the different tasks and activities needed to manage your health condition so as to reduce your need to see a doctor? Select Number: 10 Medication: How confident are you that you can do things other than just taking medication to reduce how much your illness affects your everyday life? Select Number: 5 Total Score:: 8
[2018-08-04 09:27] VITALS: BP 118/72; BP 140/90
== END 2018-08-16 23:59 ==
LOC: CR 10:15
PROVIDERS: Family Provider Student in an Organized Health Care Education/Training Program; PCP Student in an Organized Health Care Education/Training Program; Visit Provider Internal Medicine Cardiovascular Disease
DX: I25.10 Atherosclerotic heart disease of native coronary artery without angina pectoris (principal); I21.4 Non-ST elevation (NSTEMI) myocardial infarction; Z95.1 Presence of aortocoronary bypass graft; E11.8 Type 2 diabetes mellitus with unspecified complications; I73.89 Other specified peripheral vascular diseases; I11.0 Hypertensive heart disease with heart failure; I50.9 Heart failure, unspecified; Z71.3 Dietary counseling and surveillance
CPT/HCPCS: 93798; G0108

== ENCOUNTER 2018-08-16 11:30 | Outpatient (RCR) | payer MEDICAID, SELFPAY | END 2018-08-16 23:59 | LOC: DC 11:30 | PROVIDERS: Family Provider Student in an Organized Health Care Education/Training Program; PCP Student in an Organized Health Care Education/Training Program; Referring Provider Student in an Organized Health Care Education/Training Program; Visit Provider Student in an Organized Health Care Education/Training Program | DX: E11.8 Type 2 diabetes mellitus with unspecified complications (principal); I73.89 Other specified peripheral vascular diseases; I11.0 Hypertensive heart disease with heart failure; I50.9 Heart failure, unspecified; Z71.3 Dietary counseling and surveillance | CPT/HCPCS: 97802; G0108 ==

== ENCOUNTER 2018-08-23 09:01 | Outpatient (RCR) | payer MEDICAID, SELFPAY | END 2018-08-23 23:59 | LOC: DC 09:01 | PROVIDERS: Family Provider Student in an Organized Health Care Education/Training Program; PCP Student in an Organized Health Care Education/Training Program; Referring Provider Student in an Organized Health Care Education/Training Program; Visit Provider Student in an Organized Health Care Education/Training Program | DX: E11.8 Type 2 diabetes mellitus with unspecified complications (principal); I73.89 Other specified peripheral vascular diseases; I11.0 Hypertensive heart disease with heart failure; I50.9 Heart failure, unspecified; Z71.3 Dietary counseling and surveillance | CPT/HCPCS: G0108 ==

== ENCOUNTER 2018-09-15 10:15 | Outpatient (RCR) | payer MEDICAID, SELFPAY ==
[2018-08-17 01:45] VITALS: BP 118/72; BP 140/90
--- NOTE | 2018-09-04 08:07 | PCM.CR.ITP ---
Exercise - 60-Day Assessment - Visit Date of Eval: 09/04/18 Session #:: 24 - Stages of Change Stages of Change:: Action - Exercise Prescription Mode:: Treadmill, Rower, Airdyne, NuStep Frequency (x/week): 3 Duration:: 35 METs: 6 Target Heart Rate:: 114-122 with max HR 103 - Hypertension Resting Blood Pressure:: 122/68 Peak Exercise Blood Pressure:: 122/68 Medication Changes:: No - Intervention Home Exercise/Activity Goal:: Moderate Exercise 30 min/day x 5 days/wk - Education Goals:: Warm-up, RPE TIFFANI Scale, S/S, Safe Exercise, Self-Monitoring - Exercise Program Goals Exercise Program Goals: Aerobic Activity >30 min Nutrition - Initial Assessment - Program Goals Nutrition Program Goals: LDL <70. Total Cholesterol <200. HDL >45. Triglycerides <150. HgbA1C <7%. BMI <25 - Diabetes Do you monitor your blood sugar at home?: Yes Nutrition - 60-Day Assessment - Program Goals Nutrition Program Goals: LDL <70. Total Cholesterol <200. HDL >45. Triglycerides <150. HgbA1C <7%. BMI <25 - Visit Date of Eval: 09/04/18 - Stages of Change Stages of Change:: Action - Lipids Has the patient seen the dietitian?: Yes - Diabetes Diabetes:: Yes Insulin: Yes Non-Insulin Dependent?: Yes - metformin Random Blood Glucose:: 184 - 92-184 - Weight Management Weight:: 210 lb 8 oz - up 2.5 pounds this 30 day - Intervention Referral to dietitian:: No Referral to Diabetic Clinic:: No Will attend diet classes:: Yes - Education Attended class for:: Signs & symptoms of hypoglycemia, Signs & symptoms of hyperglycemia, Relate diabetes to coronary artery disease, Healthy eating Tobacco - Initial Assessment - Program Goals Tobacco Program Goals: Complete smoking cessation. Attend education classes. Improve Knowledge Test score - Learning Barriers Learning Barriers: Vision, Ready to Learn Tobacco - 60-Day Assessment - Program Goals Tobacco Program Goals: Complete smoking cessation. Attend education classes. Improve Knowledge Test score - Stage of Change Stages of Change:: Action - Learning Barriers Learning Barriers: Participates in education - Family Support Do you have family support?: Yes - Tobacco Use Tobacco Use: Non-smoker Do you use smokeless tobacco?: No - Intervention Smoking Cessation Referral:: No Individual Education/Counseling:: No Education Schedule Given:: Yes - Education Attended class for:: Coronary artery disease, Risk factors, Sexuality, Medical compliance, Cardiac A&P, Angina signs & symptoms Psychosocial - Initial Assess - Target Goals Target Goals: Assess presence or absence of depression. Using a valid screening tool, maximizes coping skills. Positive support system - Psychosocial Test Tool Used:: HANDS Depression Questionnaire - Assistive Devices Fall Risk Assessed:: Yes Psychosocial - 60-Day Assess - Target Goals Target Goals: Assess presence or absence of depression. Using a valid screening tool, maximizes coping skills. Positive support system - Stages of Change Stages of Change:: Action - Psychosocial Test Tool Used:: HANDS Depression Questionnaire - Intervention PS - Interventions: Yes Attend Stress Management Classes, Yes Uses Stress Management Skills, No Referral to Mental Health, No Referral to [facility] Case Management, No Referral to Physician - Education Attended classes for:: Coping techniques, Signs & symptoms of depression, Stress management, Relaxation techniques - Patient/Program Goal Preventative Medication(s):: Aspirin, Clopidogrel, Beta kurt, Statin/lipid - Assistive Devices Assistive Devices:: None Fall Risk Assessed:: Yes Patient Health Questionnaire 60-Day Re-eval Assessment 1. Little interest or pleasure in doing things: Not at all 2. Feeling down, depressed, or hopeless: Not at all 3. Trouble falling or staying asleep, or sleeping too much: Not at all 4. Feeling tired or having little energy: Not at all 5. Poor appetite or overeating: Not at all 6. Feeling bad about yourself -- or that you are a failure or have let yourself or your family down: Not at all 7. Trouble concentrating on things, such as reading the newspaper or watching television: Not at all 8. Moving or speaking so slowly that other people could have noticed. Or the opposite - being so fidgety or restless that you have been moving around a lot more than usual: Not at all 9. Thoughts that you would be better off , or of hurting yourself in some way: Not at all Total Score: 0 Self-Efficacy 60-Day Re-eval Assessment We would like to know how confident you are in doing certain activities. Please select your confidence level for:: Select your confidence level for the following using the scale 1-10 where 1 is not at all confident and 10 is totally confident. Your score is the average of all 6 responses. Fatigue: How confident are you that you can keep the fatigue caused by your disease from interfering with the things you want to do? Select Number: 10 Physical Discomfort or Pain: How confident are you that you can keep the physical discomfort or pain of your disease from interfering with the things you want to do? Select Number: 10 Emotional Distress: How confident are you that you can keep the emotional distress caused by your disease from interfering with the things you want to do? Select Number: 10 Other Symptoms or Health Problems: How confident are you that you can keep other symptoms or health problems from interfering with the things you want to do? Select Number: 10 Different Tasks and Activities: How confident are you that you can do the different tasks and activities needed to manage your health condition so as to reduce your need to see a doctor? Select Number: 10 Medication: How confident are you that you can do things other than just taking medication to reduce how much your illness affects your everyday life? Select Number: 10 Total Score:: 10
[2018-09-04 08:26] VITALS: BP 122/68
== END 2018-09-15 23:59 ==
LOC: CR 10:15
PROVIDERS: Family Provider Student in an Organized Health Care Education/Training Program; PCP Student in an Organized Health Care Education/Training Program; Visit Provider Internal Medicine Cardiovascular Disease
DX: I25.10 Atherosclerotic heart disease of native coronary artery without angina pectoris (principal); I21.4 Non-ST elevation (NSTEMI) myocardial infarction; Z95.1 Presence of aortocoronary bypass graft; E11.8 Type 2 diabetes mellitus with unspecified complications; I73.89 Other specified peripheral vascular diseases; I11.0 Hypertensive heart disease with heart failure; I50.9 Heart failure, unspecified; Z71.3 Dietary counseling and surveillance
CPT/HCPCS: 93798; G0108

== ENCOUNTER → 2018-09-18 11:23 | Outpatient (CLI) | payer MEDICAID, SELFPAY ==
[2018-07-19 12:53] VITALS: BMI 30.7
[2018-09-18 12:33] LABS: Absolute Lymphocyte Count 1.53 X10^3/ul (0.83-4.51); Absolute Neutrophil Count 3.3 X10^3/uL (2.0-7.7); Basophil# 0.05 X10^3/uL; Basophil% 0.9 % (0-1); Eosinophil# 0.17 X10^3/uL; Hemoglobin 13.5 g/dl (13.0-16.5); Lymphocyte # 1.53 X10^3/ul (4.0); Lymphocyte % 26.7 % (19-41); Mean Corp Hgb Conc 31.4 g/gl (32-36); Mean Corpuscular Hgb 30.3 pg (27.0-32.0); Mean Corpuscular Volume 96.4 fL (80-94); Mean Platelet Vol. 10.8 fl (6.2-12.0); Monocyte# 0.67 X10^3/uL; Monocyte% 11.7 % (0-10); Neutrophil # 3.29 X10^3/uL (2.7-7.7); Neutrophil % 57.4 % (47-70); Platelet Count 238 K/mm3 (150-450); RBC Distribution Width SD 52.2 fl (35.1-43.9); Red Blood Count 4.46 M/mm3 (4.6-6.2); White Blood Count 5.7 K/mm3 (4.4-11.0)
[2018-09-18 12:37] LABS: POSITIVE COUNT NO; POSITIVE DIFFERENTIAL NO; POSITIVE MORPHOLOGY NO
[2018-09-18 12:54] LABS: Anion Gap 9 (5-15); BUN 16 mg/dL (7-18); BUN/Creat Ratio 15.5 RATIO (10-20); Calcium,Total 9.2 mg/dL (8.5-10.1); Chloride 104 mmol/L (98-107); Creatinine, Serum 1.03 mg/dL (0.70-1.30); EST Glomerular Filtration Rate 79 mL/min (>60); Est Glom Filt Rate - Afr Amer 96 mL/min (>60); Glucose 134 mg/dL (74-106); Potassium 4.5 mmol/L (3.5-5.1); Sodium Level 142 mmol/L (136-145)
--- OUTSIDE RECORDS SUMMARY | 2018-11-11 17:30 | XMS RPT_ITS ---
:1960 Author Organization OHIP Support Name Relationship Address Phone RADHA GEORGE Unavailable [address] + [place] [address] SELF Unavailable Unavailable Unavailable GEORGE, RADHA Unavailable [address] + [place] [address] SELF Unavailable Unavailable Unavailable GEORGE, RADHA Unavailable [address] + [place] [address] SELF Unavailable Unavailable Unavailable GEORGE, RADHA Unavailable [address] + [place] [address] SELF Unavailable Unavailable Unavailable GEORGE, RADHA Unavailable [address] + [place] [address] SELF Unavailable Unavailable Unavailable GEORGE, RADHA Unavailable [address] + [place] [address] SELF Unavailable Unavailable Unavailable GEORGE, RADHA Unavailable [address] + [place] [address] SELF Unavailable Unavailable Unavailable GEORGE, RADHA Unavailable [address] + [place] [address] SELF Unavailable Unavailable Unavailable GEORGE, RADHA Unavailable [address] + [place] [address] SELF Unavailable Unavailable Unavailable GEORGE, RADHA Unavailable [address] + [place] [address] SELF Unavailable Unavailable Unavailable GEORGE, RADHA Unavailable [address] + [place] [address] SELF Unavailable Unavailable Unavailable GEORGE, RADHA Unavailable [address] + [place] [address] SELF Unavailable Unavailable Unavailable GEORGE, RADHA Unavailable [address] + [place] [address] SELF Unavailable Unavailable Unavailable GEORGE, RADHA Unavailable [address] + [place] [address] SELF Unavailable Unavailable Unavailable SELF Unavailable Unavailable Unavailable EMERY, RADHA Unavailable [address] + [place] [address] SELF Unavailable Unavailable Unavailable EMERY, RADHA Unavailable [address] + [place] [address] SELF Unavailable Unavailable Unavailable EMERY, RADHA Unavailable [address] + [place] [address] SELF Unavailable Unavailable Unavailable EMERY, RADHA Unavailable [address] + [place] [address] SELF Unavailable Unavailable Unavailable EMERY, RADHA Unavailable [address] + [place] [address] SELF Unavailable Unavailable Unavailable EMERY, RADHA Unavailable [address] + [place] [address] SELF Unavailable Unavailable Unavailable EMERY, RADHA Unavailable [address] + [place] [address] SELF Unavailable Unavailable Unavailable EMERY, RADHA Unavailable [address] + [place] [address] SELF Unavailable Unavailable Unavailable EMERY, RADHA Unavailable [address] + [place] [address] SELF Unavailable Unavailable Unavailable EMERY, RADHA Unavailable [address] + [place] [address] SELF Unavailable Unavailable Unavailable EMERY, RADHA Unavailable [address] + [place] [address] SELF Unavailable Unavailable Unavailable EMERY, RADHA Unavailable [address] + [place] [address] SELF Unavailable Unavailable Unavailable EMERY, RADHA Unavailable [address] + [place] [address] SELF Unavailable Unavailable Unavailable EMERY, RADHA Unavailable [address] + [place] [address] SELF Unavailable Unavailable Unavailable EMERY, RADHA Unavailable [address] + [place] [address] SELF Unavailable Unavailable Unavailable EMERY, RADHA Unavailable [address] + [place] [address] SELF Unavailable Unavailable Unavailable EMERY, RADHA Unavailable [address] + [place] [address] SELF Unavailable Unavailable Unavailable EMERY, RADHA Unavailable [address] + [place] [address] SELF Unavailable Unavailable Unavailable EMERY, RADHA Unavailable [address] + [place] [address] SELF Unavailable Unavailable Unavailable EMERY, RADHA Unavailable [address] + [place] [address] SELF Unavailable Unavailable Unavailable EMERY, RADHA Unavailable [address] + [place] [address] SELF Unavailable Unavailable Unavailable EMERY, RADHA Unavailable [address] + [place] [address] SELF Unavailable Unavailable Unavailable EMERY, RADHA Unavailable [address] + [place] [address] SELF Unavailable Unavailable Unavailable EMERY, RADHA Unavailable [address] + [place] [address] SELF Unavailable Unavailable Unavailable EMERY, RADHA Unavailable [address] + [place] [address] SELF Unavailable Unavailable Unavailable EMERY, RADHA Unavailable [address] + [place] [address] SELF Unavailable Unavailable Unavailable EMERY, RADHA Unavailable [address] + [place] [address] SELF Unavailable Unavailable Unavailable EMERY, RADHA Unavailable [address] + [place] [address] SELF Unavailable Unavailable Unavailable EMERY, RADHA Unavailable [address] + [place] [address] SELF Unavailable Unavailable Unavailable EMERY, RADHA Unavailable [address] + [place] [address] SELF Unavailable Unavailable Unavailable EMERY, RADHA Unavailable [address] + [place] [address] SELF Unavailable Unavailable Unavailable EMERY, RADHA Unavailable [address] + [place] [address] SELF Unavailable Unavailable Unavailable EMERY, RADHA Unavailable [address] + [place] [address] SELF Unavailable Unavailable Unavailable EMERY, RADHA Unavailable [address] + [place] [address] SELF Unavailable Unavailable Unavailable EMERY, RADHA Unavailable [address] + [place] [address] SELF Unavailable Unavailable Unavailable EMERY, RADHA Unavailable [address] + [place] [address] SELF Unavailable Unavailable Unavailable RADHA LAND Unavailable [address] + [place] [address] SELF Unavailable Unavailable Unavailable RADHA LAND Unavailable [address] + [place] [address] Care Team Providers Name Role Phone Tommie Jean Attending Unavailable Surjit Edmonds Attending Unavailable Escalante, Avery Primary Care Unavailable Surjit Edmonds Referring Unavailable Escalante, Avery Primary Care Unavailable Jose Alberto Gaspar Attending Unavailable Jose Alberto Gaspar Referring Unavailable Dossie, Elizabeth Beaver Attending Unavailable Escalante, Avery Referring Unavailable Escalante, Avery Primary Care Unavailable Tommie Jean Attending Unavailable Tommie Jean H Referring Unavailable Escalante, Avery Primary Care Unavailable Dossie, Elizabeth Beaver Attending Unavailable Escalante, Avery Referring Unavailable Escalante, Avery Primary Care Unavailable DosElizabeth wallace D.C. Attending Unavailable Escalante, Avery Referring Unavailable Dossie, Elizabeth Beaver Attending Unavailable Escalante, Avery Referring Unavailable DossiElizabeth leyva D.C. Attending Unavailable Escalante, Avery Referring Unavailable Fascione, Abigail Attending Unavailable Escalante, Avery Primary Care Unavailable Oleghe, Efewongbe Attending Unavailable Fascione, Abigail Referring Unavailable Fascione, Abigail Attending Unavailable Escalante, Avery Primary Care Unavailable Oleghe, Efewongbe Attending Unavailable Oleghe, Efewongbe Referring Unavailable Oleghe, Efewongbe Attending Unavailable Oleghe, Efewongbe Referring Unavailable Escalante, Avery Primary Care Unavailable Oleghe, Efewongbe Attending Unavailable Oleghe, Efewongbe Attending Unavailable Oleghe, Efewongbe Referring Unavailable Oleghe, Efewongbe Attending Unavailable Oleghe, Efewongbe Referring Unavailable Oleghe, Efewongbe Attending Unavailable Oleghe, Efewongbe Referring Unavailable Oleghe, Efewongbe Attending Unavailable Oleghe, Efewongbe Referring Unavailable Oleghe, Efewongbe Attending Unavailable Escalante, Avery Primary Care Unavailable Escalante, Avery Primary Care Unavailable Shiv Emanuel Referring Unavailable [place], [place] Admitting Unavailable Mood[place], Reid Consulting Unavailable White, Shania Attending Unavailable [place], [place] Admitting Unavailable [place], [place] Attending Unavailable [facility] Primary Care Unavailable Mood[place], Reid Consulting Unavailable [place], [place] Consulting Unavailable [place], [place] Admitting Unavailable [place], Reid Attending Unavailable [facility] Primary Care Unavailable [place], Reid Consulting Unavailable [place], [place] Consulting Unavailable [place], [place] Admitting Unavailable [place], Reid [facility]ending Un[facility] [place], Reid Consulting Unavailable [place], [place] Consulting Unavailable [place], [place] Admitting Unavailable [place], [place] Attending Unavailable [facility] Primary Care Unavailable [place], Reid Consulting Unavailable [place], [place] Consulting Unavailable [place], [place] Admitting Unavailable [place], Reid Attending Unavailable [facility] Primary Care Unavailable [place], Reid Consulting Unavailable White, Shania Consulting Unavailable [place], [place] Admitting Unavailable White, Shania Attending Unavailable [facility] Primary Care Unavailable Mood[place], Reid Consulting Unavailable White, Shania Consulting Unavailable Oleghe, Efewongbe Attending Unavailable [facility] Primary Care Unavailable Oleghe, Efewongbe Attending Unavailable Oleghe, Efewongbe Referring Unavailable Oleghe, Efewongbe Attending Unavailable Oleghe, Efewongbe Referring Unavailable Oleghe, Efewongbe Attending Unavailable Oleghe, Efewongbe Referring Unavailable Moodispaw, Reid Attending Unavailable Oleghe, Efewongbe Attending Unavailable [facility] Primary Care Unavailable Oleghe, Efewongbe Attending Unavailable Oleghe, Efewongbe Attending Unavailable Oleghe, Efewongbe Attending Unavailable [facility] Primary Care Unavailable Oleghe, Efewongbe Attending Unavailable Oleghe, Efewongbe Attending Unavailable Oleghe, Efewongbe Attending Unavailable Oleghe, Efewongbe Attending Unavailable [facility] Primary Care Unavailable STEFANIE HERRERA Attending Unavailable STEFANIE HERRERA Referring Unavailable Jhonathan, Reid Attending Unavailable STEFANIE HERRERA Referring Unavailable [facility] Avery Primary Care Unavailable DOCTOR, OUT OF TOWN Consulting Unavailable Oleghe, Efewongbe Attending Unavailable Escalante, Avery Primary Care Unavailable Jhonathan, Reid Attending Unavailable STEFANIE HERRERA Referring Unavailable Escalante, Avery Primary Care Unavailable DOCTOR, OUT OF TOWN Consulting Unavailable Tommie Jean H Attending Unavailable Escalante, Avery Attending Unavailable Escalante, Avery Referring Unavailable Escalante, Avery Primary Care Unavailable [place], Reid Attending Unavailable STEFANIE HERRERA Referring Unavailable Escalante, Avery Primary Care Unavailable DOCTOR, OUT OF TOWN Consulting Unavailable Escalante, Avery Attending Unavailable Escalante, Avery Referring Unavailable Escalante, Avery Primary Care Unavailable [place], Reid Attending Unavailable STEFANIE HERRERA Referring Unavailable Escalante, Avery Primary Care Unavailable DOCTOR, OUT OF TOWN Consulting Unavailable Escalante, Avery Attending Unavailable Escalante, Avery Referring Unavailable Escalante, Avery Primary Care Unavailable José Miguel Singleton Attending Unavailable José Miguel Singleton Referring Unavailable Escalante, Avery Primary Care Unavailable Yamilka Davis Attending Unavailable Yamilka Davis Referring Unavailable Escalante, Avery Primary Care Unavailable ESCALANTE, AVERY L Attending Unavailable ESCALANTE, AVERY L Referring Unavailable REAGAN, JERRY D Referring Unavailable REAGAN, JERRY D Referring Unavailable ESCALANTE, AVERY L Attending Unavailable ESCALANTE, AVERY L Referring Unavailable ESCALANTE, AVERY L Referring Unavailable CORNIELLO, JOSE JUAN [place] ([facility]) Attending Unavailable ESCALANTE, AVERY L Referring Unavailable REAGAN, JERRY D Attending Unavailable ESCALANTE, AVERY L Referring Unavailable REAGAN, JERRY D Referring Unavailable CORNIELLO, JOSE JUAN L ([facility]) Referring Unavailable ESCALANTE, AVERY L Attending Unavailable ESCALANTE, AVERY L Referring Unavailable UNAI, SHINYA Referring Unavailable CORNIELLO, JOSE JUAN L ([facility]) Attending Unavailable CORNIELLO, JOSE JUAN L ([facility]) Referring Unavailable ESCALANTE, AVERY L Referring Unavailable ESCALANTE, AVERY L Referring Unavailable ESCALANTE, AVERY L Referring Unavailable ESCALANTE, AVERY L Referring Unavailable ESCALANTE, AVERY L Attending Unavailable ESCALANTE, AVERY L Referring Unavailable ESCALANTE, AVERY L Referring Unavailable JOSÉ MIGUEL SINGLETON Referring Unavailable ESCALANTE, AVERY L Referring Unavailable ARMANDO, MAGDALENO Referring Unavailable ARMANDO, MAGDALENO Referring Unavailable CORNIELLO, JOSE JUAN [place] ([facility]) Attending Unavailable ESCALANTE, AVERY L Referring Unavailable CORNIELLO, JOSE JUAN L ([facility]) Referring Unavailable ESCALANTE, AVERY L Attending Unavailable ESCALANTE, AVERY L Referring Unavailable JERRY REAGAN Attending Unavailable ESCALANTE, AVERY L Referring Unavailable CORNIELLO, JOSE JUAN L ([facility]) Referring Unavailable [facility] ([facility]) Attending Unavailable UNAI, SHINYA Referring Unavailable UNAI, SHINYA Referring Unavailable UNAI, SHINYA Referring Unavailable CORNIELLO, JOSE JUAN L (TRACK LABORER) Attending Unavailable MERCEDES MONTALVO (COMPUTER FORENSICS EXAMINER) Referring Unavailable AHMED, HAITHAM Referring Unavailable AHMED, HAITHAM Referring Unavailable AHMED, HAITHAM Referring Unavailable MONTALVOALEEVA (COMPUTER FORENSICS EXAMINER) Referring Unavailable JABER, WAEL A Admitting Unavailable UNAI, SHINYA Attending Unavailable ESCALANTE, AVERY L Referring Unavailable ESCALANTE, AVERY L Referring Unavailable CORNIELLO, JOSE JUAN L ([facility]) Referring Unavailable MAGDALENO ESCAMILLA Attending Unavailable Sharon ESCAMILLA Attending Unavailable IMCA Referring Unavailable ESCALANTE, AVERY L Primary Care Unavailable PROBLEMS PROBLEMS DATE TYPE CONDITION / CODE ATTENDING STATUS SOURCE 10/04/2018 Unknown I25.10 - [place], Active [place] Atherosclerotic [facility] heart disease of Hospital [place] coronary Repository artery without angina pectoris / I25.10(ICD-10) 09/29/2018 Unknown R06.09 - Other forms Tommie Jean Active [facility] of dyspnea / Community R06.09(ICD-10) Hospital Repository 09/29/2018 Unknown Z95.1 - Presence of Tommie Jean Active [facility] aortocoronary bypass [facility] graft / Hospital Z95.1(ICD-10) Repository 09/29/2018 Unknown I10 - Essential Tommie Jean Active [facility] (primary) Community hypertension / Hospital I10(ICD-10) Repository 09/28/2018 Unknown E11.8 - Type 2 Escalante, Active [place] diabetes mellitus [facility] with unspecified Hospital complications / Repository E11.8(ICD-10) 04/19/2018 Active Type 2 diabetes NA Active [place] mellitus with other Clinic Main diabetic [place] neurological Repository complication / E11.49(ICD-10) 07/17/2018 Unknown I21.4 - Non-ST [place], Active [place] elevation (NSTEMI) [facility] myocardial Hospital infarction / Repository I21.4(ICD-10) 07/17/2018 Unknown E78.5 - [place], Active [place] Hyperlipidemia, [facility] unspecified / Hospital E78.5(ICD-10) Repository 05/25/2018 Active Atherosclerotic NA Active [facility] heart disease of Clinic Main [place] coronary [place] artery without Repository angina pectoris / I25.10(ICD-10) 05/12/2018 Active Presence of NA Active [place] aortocoronary bypass [facility] Main graft / [place] Z95.1(ICD-10) Repository 04/15/2018 Active Non-ST elevation [facility] (NSTEMI) myocardial [facility] Main infarction / [place] I21.4(ICD-10) Repository 06/07/2018 Active Anemia, unspecified NA Active [facility] / D64.9(ICD-10) Clinic Main [place] Repository 06/05/2018 Unknown L97.512 - Oleghe, Active [place] Non-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[facility] ulcer of other [facility] Hospital of right foot with Repository fat layer exposed / L97.512(ICD-10) 06/05/2018 Unknown T14.8XXA - Other Oleghe, Active [facility] injury of [facility] unspecified body Hospital region, initial Repository encounter / T14.8XXA(ICD-10) 04/15/2018 Active Mixed hyperlipidemia [facility] Critical access hospital / E78.2(ICD-10) Clinic Other [place] Repository 05/15/2014 Active Unspecified disorder ARMANDO, MAGDALENO Active [facility] of circulatory [facility] Other system / [place] I99.9(ICD-10) Repository 05/25/2018 Admitting Unknown / Sharon ESCAMILLA Active [place] [facility] diagnosis UNK(Unknown) [facility] Repository 04/19/2018 Active Atherosclerotic NA Active [facility] heart disease of [facility] Main [place] coronary [place] artery with unstable Repository angina pectoris / I25.110(ICD-10) 04/28/2018 Active Encounter for NA Active [facility] follow-up Clinic Main examination after [place] completed treatment Repository for conditions other than malignant neoplasm / Z09(ICD-10) 04/15/2018 Active Other acute UNAI SHINYA [facility] postprocedural pain Clinic Main / G89.18(ICD-10) [place] Repository 08/25/2015 Active Deficiency of other UNAI, SHINYA [facility] specified B group Clinic Main vitamins / [place] E53.8(ICD-10) Repository 04/16/2018 Unknown E11.621 - Type 2 Oleghe, Active [place] diabetes mellitus [facility] Community with foot ulcer / Hospital E11.621(ICD-10) Repository 04/25/2018 Unknown L98.492 - Oleghe, Active [place] Non-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[facility] ulcer of skin of Hospital other sites with fat Repository layer exposed / L98.492(ICD-10) 04/25/2018 Unknown E11.42 - Type 2 Oleghe, Active [place] diabetes mellitus [facility] with diabetic Hospital polyneuropathy / Repository E11.42(ICD-10) 02/09/2018 Active Hyperkalemia / NA Active [facility] E87.5(ICD-10) Clinic Main [place] Repository 01/25/2018 Active Diabetes mellitus NA Active [facility] due to underlying Clinic Main condition with [place] diabetic neuropathy, Repository unspecified / E08.40(ICD-10) 02/03/2018 Unknown S72.435D - Kendal Surjit Active [place] Nondisplaced Community fracture of [facility] condyle of left Repository femur, subsequent encounter for closed fracture with routine healing / S72.435D(ICD-10) 11/14/2017 Active Hypomagnesemia / NA Active [facility] E83.42(ICD-10) Clinic Main [place] Repository 11/07/2017 Active Other specified soft NA Active [facility] tissue disorders / Clinic Main M79.89(ICD-10) [place] Repository 11/07/2017 Unknown M99.02 - Segmental Dossie, Elizabeth Active [facility] and somatic [facility] Community dysfunction of Hospital thoracic region / Repository M99.02(ICD-10) 11/07/2017 Unknown M99.03 - Segmental Dossie, Elizabeth Active [facility] and somatic [facility] Community dysfunction of Hospital lumbar region / Repository M99.03(ICD-10) 11/07/2017 Unknown M99.01 - Segmental Dossie, Elizabeth Active [facility] and somatic [facility] Community dysfunction of Hospital cervical region / Repository M99.01(ICD-10) 11/07/2017 Unknown M54.14 - Dossie, Elizabeth Active [facility] Radiculopathy, [facility]. 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 / Clinic Main R61(ICD-10) [place] Repository 11/01/2017 Active Type 2 diabetes NA Active [facility] mellitus with [facility] Main diabetic [place] polyneuropathy / Repository E11.42(ICD-10) 11/01/2017 Active FPC (current) NA Active [facility] use of insulin / Clinic Main Z79.4(ICD-10) [place] Repository 11/01/2017 Active Restless legs NA Active [facility] syndrome / Clinic Main G25.81(ICD-10) [place] Repository 11/01/2017 Active Unknown / ESCALANTE, Active [facility] UNK(Unknown) AVERY L [facility] [place] Repository 10/25/2017 Unknown M25.562 - Pain in Jose Alberto Gaspar Active [facility] left knee / [facility] M25.562(ICD-10) Hospital Repository 05/15/2014 Active Peripheral vascular NA Active [facility] disease, unspecified Clinic Main / I73.9(ICD-10) [place] Repository PROCEDURES PROCEDURES No Procedure Records FoundRESULTS RESULTS BASIC METABOLIC Collected: 09/29/2018 Status: F Source: [place] PROFILE (BMP) 1:18 PM [facility] REPOSITORY TYPE CODE TESTS RESULT OUT OF RANGE REFERENCE UNITS LAB L501.0100 74-106 mg/dL High GLU 148 Result Comment: Fasting Glucose result greater than or equal to 126 mg/dL suggests DIABETES MELLITUS per A.D.A. criteria. Please note revised GLUCOSE reference range effective 2017. LAB L501.1000 7-18 mg/dL Normal BUN 16 LAB L501.1100 0.70-1.30 mg/dL Normal CREAT,SERUM 1.04 Result Comment: The validity of the calculated GFR AND GFRAA in patients over 70 years has not been determined. Clinical correlation is essential. LAB L501.1110 >60 mL/min Normal EST GFR 78 Result Comment: Non- GFR Calc LAB L501.1115 >60 mL/min Normal EST GFR - AA 95 Result Comment: GFR Calc LAB L501.1300 10-20 RATIO Normal BUN/CRE 15.4 LAB L501.2200 8.5-10.1 mg/dL CA Normal 8.7 LAB L501.5300 136-145 mmol/L Low NA 135 LAB L501.5600 3.5-5.1 mmol/L K Normal 4.2 LAB L501.5900 98-107 mmol/L CL Normal 101 LAB L501.6100 21.0-32.0 mmol/L Normal CO2 29.0 LAB L501.6200 5-15 Normal GAP 5 Performed By: #### L500.2500 #### [facility] [address] [place], [address] BNP,B-TYPE NATRIURETIC Collected: 09/29/2018 Status: F Source: [place] PEPTIDE 1:18 PM [facility] REPOSITORY TYPE CODE TESTS RESULT OUT OF RANGE REFERENCE UNITS LAB L503.6620 0-100 pg/mL Normal B-TYPE 71.2 LESLI PEP Performed By: #### L503.6620 #### [facility] [address] [place], [address] CARDIOLOGY VISIT Observed: 09/29/2018 Status: F Source: [place] REPORT 12:40 PM [facility] REPOSITORY [facility] [address] [place] [address] OFFICE VISIT Date of Service: 09/29/18 MR#: [id number] Acct: [id number] Name: RICK GEORGE Rep #: [id number] : 1960 Provider: EDUARDO Jean Age/Sex: 58/M Location: [facility] [place] Status: Signed HPI HPI Details: RICK GEORGE, is a 58 M who presents to the office today for a cardiovascular outpatient follow-up. He has history of coronary artery disease status post non-ST elevated myocardial infarction and CABG with MACK to LAD, SVG to OM, and SVG to PDA of LCx in March 2018 at [facility], hypertension, and diabetes mellitus. After last office visit his Lasix was resumed. His shortness of breath, lower extremity edema, and weight improved. His Lasix was thus decreased. After it was decreased, he continued to have shortness of breath and weight gain and his Lasix was returned to 40 mg p.o. daily. Pt. denies chest, arm, jaw, or neck discomfort. His exercise tolerance is stable via cardiac rehab. Pt. denies symptoms of lightheadedness, dizziness, near syncope, or syncopal episodes. Pt. denies claudication issues. Pt. denies orthopnea, PND, fever, chills, blood in urine, blood in stool, myalgia, or unexplainable fatigue. He states bilateral lower extremity. He does acknowledge shortness of breath on exertion with certain activities. He denies any shortness of breath during cardiac rehab. Intake Vital Signs09/29/18 Height 5 ft 10 in 09/29/18 Weight: 211 lb 09/29/18 Body Mass Index (BMI) 30.2 09/29/18 Blood Pressure 110/69 09/29/18 Blood Pressure Location Lt brachial Intake Visit Reasons: 3 M FUP Allergies atorvastatin Adverse Reaction (Verified 09/29/18 09:19) Unknown metformin Adverse Reaction (Verified 09/29/18 09:19) Diarrhea Medications Tizanidine HCl [Zanaflex] 4 mg PO 4X/DAY PRN PRN 11/07/14 [History Confirmed 12/28/17] Ammonium Lactate [Amlactin] 57 gm TP PRN PRN 10/04/17 [History Confirmed 04/01/18] Baclofen 20 mg PO TID 10/04/17 [History Confirmed 04/02/18] Celecoxib [Celebrex] 200 mg PO DAILY 10/04/17 [History Confirmed 04/01/18] Cholecalciferol (Vitamin D3) [Vitamin D3] 5,000 unit PO DAILY 10/04/17 [History Confirmed 04/01/18] Levomefolate/B6/B12/Algal Oil [Metanx Capsule] 1 ea PO DAILY 10/04/17 [History Confirmed 12/28/17] Nortriptyline HCl 50 mg PO QHS 10/04/17 [History Confirmed 04/01/18] Biotin 1 mg PO DAILY 04/01/18 [History Confirmed 04/01/18] Cyanocobalamin (Vitamin B-12) [Vitamin B-12] 1,000 mcg PO 04/01/18 [History] Desonide 0.05% [Desowen 0.05% Cream] 1 applic TOPICAL BID 04/01/18 [History Confirmed 04/01/18] Diflorasone Diacetate [Psorcon] 1 applicatio TP BID PRN 04/01/18 [History Confirmed 04/01/18] Gabapentin [Neurontin] 900 mg PO TIDCM 04/01/18 [History Confirmed 04/01/18] Insulin Glargine,Hum.rec.anlog [Basaglar Kwikpen U-100] 20 unit SQ QHS 04/01/18 [History Confirmed 04/01/18] Insulin Lispro [Humalog KwikPen] See Protocol SQ TIDCM 04/01/18 [History Confirmed 04/01/18] Ketoconazole [Nizoral] 1 applic TOPICAL DAILY 04/01/18 [History Confirmed 04/01/18] Magnesium 250 mg PO DAILY 04/01/18 [History Confirmed 04/01/18] Aspirin [Aspir-Low] 81 mg PO DAILY MDD 2 tabs 05/24/18 [History Confirmed 05/24/18] metoprolol tartrate 25 mg tablet 12.5 mg PO BID tab MDD 1.5 tabs 07/19/18 [History Confirmed 07/19/18] furosemide 20 mg tablet 40 mg PO DAILY tab 09/27/18 [History] amlodipine 5 mg tablet 5 mg PO BID tab 09/29/18 [History Confirmed 09/29/18] rosuvastatin 10 mg tablet 10 mg PO .COMPLEX tab 09/29/18 [History Confirmed 09/29/18] PFSH Medical History Environmental allergies (Acute) Diabetes (Acute) H/O stroke associated with blood clotting tendency (Acute) Essential (primary) hypertension (Chronic) Other specified peripheral vascular diseases (Chronic) Ulcer of right foot with fat layer exposed (Resolved) Chronic ulcer of left foot with fat layer exposed (Resolved) Xerosis of skin (Chronic) Non-compliance (Chronic) Skin ulcer of finger with fat layer exposed (Chronic) Callous ulcer with fat layer exposed (Chronic) Type 2 diabetes mellitus with diabetic polyneuropathy (Chronic) Hammertoe of right foot (Chronic) Hammertoe of left foot (Chronic) Xerosis cutis (Chronic) NSTEMI (non-ST elevated myocardial infarction) (Acute 03/2018) CHF (congestive heart failure) (Acute) Nonhealing nonsurgical wound with fat layer exposed (Acute) Non-healing surgical wound (Acute) Thoracic neuritis (Acute) Segmental and somatic dysfunction of lumbar region (Acute) Segmental and somatic dysfunction of cervical region (Acute) Segmental and somatic dysfunction of thoracic region (Acute) Diabetes mellitus type 2 with complications (Chronic) Neuropathy (Chronic) Cerebrovascular disease (Chronic) Cellulitis lft foot failed outpatient tx (Acute) Diabetic foot ulcer associated with type 2 diabetes mellitus (Acute) Surgical History 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) Family History Other Arthritis Hypertension Social History Smoking Status: Never smoker ROS Const Const: Negative for fatigue, weakness, body ache, fever(s) or chills ENT ENT: Negative for dizziness Cardio Chest Pain: No Palpitations: No Edema: Bilateral Muscle aches with walking: None Resp Respiratory: Positive for SOB with activity; negative for SOB at rest, SOB orthopnea\SOB lying down or paroxysmal nocturnal dyspnea GI GI: Negative nausea, black,tarry stools, bright, red blood in stools or vomiting blood/hematemesis : Negative for hematuria or frequent nighttime urination/ nocturia Musc Musc: Negative for muscle aches/ myalgia Skin Skin: Negative non-healing lesions or rash Neuro Neuro: Negative for weakness, dizziness, lightheadedness, near syncope, syncope or orthostatic symptoms Endo Endo: Negative for fatigue Allergy Allergy/Immunology: Negative for rash Cardiology Exam Const Appearance: cooperative, healthy appearing, comfortable and no acute distress Nutritional Appearance: average body habitus and well nourished Orientation: alert, awake and oriented x3 Head Head: normal to inspection Ears: hearing grossly normal bilaterally Nose: external nose normal Face and Sinus: face symmetric Mouth: oral mucosae normal Eyes General: appearance normal, both eyes and all related structures Eyelids: eyelids normal EOM: EOM intact bilaterally Neck Neck: no JVD and normal visual inspection Carotids: normal carotid upstroke Chest Chest inspection: normal inspection of the chest and normal respiratory effort; negative cough Auscultation: Right: Crackles, Bilateral: Clear to Auscultation Cardio Rate: regular rate Rhythm: regular rhythm Heart sounds: S1 normal and S2 normal; negative rub, gallop or murmur GI GI: normal to inspection Neuro General: alert, awake, oriented x3 and CN's II-XI intact bilaterally Skin Skin: no rashes or lesions noted Extremities Pulses: Normal: Right Posterior Tibial Pulse, Left Posterior Tibial Pulse, Right Radial Pulse, Left Radial Pulse Lower Extremity Edema: +2: Bilateral (R>L) Psych Psychological: normal affect Assessment AND Plan 1. Dyspnea on exertion R06.09 Plan He does acknowledge shortness of breath on exertion, but this is not constant. His lung exam revealed clear lung field. He will undergo laboratory evaluation to assess for fluid volume overload. At this time, he will continue with current diuretic. Further recommendation will be made based on results of his laboratory test Orders Orders: 2. H/O three vessel coronary artery bypass Z95.1 MACK-LAD, SVG-OM, SVG to left PDA by Dr. Zhu of [facility] Plan Patient denies any chest pain, arm pain, jaw pain, neck pain, shortness of breath, or fatigue suggestive of angina at this time. We will continue to monitor this. We will not make any medication regimen changes and will continue risk factor modification. Orders Orders: 3. Essential (primary) hypertension I10 Plan Patient's blood pressure is well-controlled today in the office. We will continue to monitor this. We will not make any medication regimen changes. He states that his primary care provider has discontinued his lisinopril. Orders Orders: 4. Edema R60.9 Plan He does exhibit lower extremity bilateral pedal edema with right leg greater than left. His BTNP will help discern if this is fluid versus medication. His amlodipine was increased to 5 mg twice daily by PCP to help with raynauds phenomenon in his feet and hands. He states this is very bothersome, especially in the winter. If his BTNP is not elevated, then his lower extremity edema may be due to his medication. At this time, he desires the improvement of his raynauds phenomenon versus improvement of his edema. Plan Detail Additional Comments Thank you for allowing us to participate in the patients plan of care, if you have any questions please do not hesitate to call. This note was generated using a voice recognition system and there may be incorrect words, spelling or punctuation that were not noted when reviewing the office note prior to saving. Goals Decrease pain and spasm Increase ROM Barriers Work requirements. Coding Level of Care Code Off vis,est,level 3 Diagnoses Dyspnea on exertion R06.09 H/O three vessel coronary artery bypass Z95.1 Essential (primary) hypertension I10 Edema R60.9 Coding Level of Care Code Off vis,est,level 3 Diagnoses Dyspnea on exertion R06.09 H/O three vessel coronary artery bypass Z95.1 Essential (primary) hypertension I10 Edema R60.9 09/29/18 1240 <Electronically signed by Tommie CASTELLONC> Date Tommie Red Ted RUSSELL-C Marilee Signature: Date (if applicable) CC: INITAL EVALUATION (1) Observed: 09/22/2018 Status: F Source: [place] - PT 2:02 PM [facility] REPOSITORY [facility] [address] [place] [address] Fax REHABILITATION SERVICES INITIAL EVALUATION MR#: [id number] Acct: [id number] Name: RICK GEORGE Rep #: [id number] : 1960 58 From: Martha Flores MPT Referring Dr.: José Miguel Singleton MD Status: REG RCR Insurance: [facility] SELF PAY INSURANCE Patient's Visit Information RICK GEORGE is a 58 year old M referred to Physical Therapy by José Miguel Singleton MD with a diagnosis of imbalance from neuropathy. Date of Evaluation: 09/20/18 Physical Therapist: Martha Flores - Visit Plan Frequency: 2x /Week Duration: 6 Weeks Plan: 2X/ week for 6 weeks for balance activities, LE strength, gait training, L gastroc and HS stretching with HEP - Subjective Findings: Pt had open heart surgery ( triple by pass... had the marker)...cardiac rehab until Oct 04. He went back to see Neurologist and they told him that he had another white spot in his brain ( another small stroke) but he doesnt remember having it. He reports that his balance is worse than what it used to be. He has not fallen in 2 weeks but he did fall 3 times in a wekk. Pt reports that he got down to get something off the ground and he felt that something ripped in his L leg and by the end of the night he cant bend it and it feels like it is on fire. He has an appointment on Tuesday with Danie Edmonds. Pt reports that his biggest complaint at this point is balance and ankle strength. Pt reports some dizziness. He gets it when he bends over and tries to get back up. He did blood work on Tuesday cause he gets some SOB especially with bending over and standing up. Pt only sleeps 3-4 hours a night. Pt goes up the stairs with a hand rail with alternating and then goes down the stairs backwards - Pain L leg Pain Intensity (Out of 10): 6 Ribs Pain Intensity (Out of 10): 6 L hand Pain Intensity (Out of 10): 4 - Objective Gait: walks with decrease stance time on the L (decrease calf girth on the L), WBOS and L forefoot abduction. LE MMT: hip flex L 4-/5 and R 4/5, knee flex, R 4-/5 and L 3+/5, R knee ext 4/5 and L 4-/5, R hip abd 4/5 and L 4-/5, B hip ext R 4/5 and L 3+/5, R knee flex 4/5 and L 3+/5. Pt is not able to walk on heels and toes fully, especially on the L due to weakness. FGA: 06/15. CATSIB 33. Pt is unable to walk with head turns without having to stop and regain balance each direction before able to take a step. Tight L sided gastroc and hamstring - Balance Scores Functional Gait Assessment Score: 8 % Disability: 73.3400 CATSIB Score (Max score 120 seconds): 33 - Goals Goal 1:: I HEP Goal Time Frame: 4-6 Weeks Goal 2:: Increase FGA by 5 points to 13 to decrease fall risk. Goal Time Frame: 4-6 Weeks Goal 3:: Increase LE strength by 1/2 muscle grade to decrease fall risk ( hip flex L 4-/5 and R 4/5, knee flex, R 4-/5 and L 3+/5, R knee ext 4/5 and L 4-/5, R hip abd 4/5 and L 4-/5, B hip ext R 4/5 and L 3+/5, R knee flex 4/5 and L 3+/5. Pt is not able to walk on heels and toes fully, especially on the L due to weakness) Goal Time Frame: 4-6 Weeks Goal 4:: Be able to walk with more of an equal WB gait pattern Goal Time Frame: 4-6 Weeks - Rehabilitation Potential Rehabilitation Potential: Good - Anticipated Interventions Patient/Client Instruction: Educate patient on: Plan of Care For the Purpose of:: To decrease pain, To improve nutrient delivery to tissue, To improve muscle performance and motor function, To improve ability to perform ADL's, To increase tolerance to activity/condition/position, To improve performance and independence with ADL's, To decrease level of supervision to perform tasks, To improve ability of physical actions for home/community/work/leisure, To improve gait and locomotor functions, To improve health of tissue, To decrease soft tissue restriction, To increase flexibility/ROM, To improve balance, To improve safety with gait Therapeutic Exercise to Include: Strength training, Body mechanics, Flexibilty training, Gait and locomotor training, Neuromotor development, Active ROM, Dynamic Lumbar Stabilization For the Purpose of:: To decrease pain, To improve nutrient delivery to tissue, To improve muscle performance and motor function, To improve ability to perform ADL's, To increase tolerance to activity/condition/position, To improve performance and independence with ADL's, To decrease level of supervision to perform tasks, To improve ability of physical actions for home/community/work/leisure, To improve gait and locomotor functions, To improve health of tissue, To decrease soft tissue restriction, To increase flexibility/ROM, To improve balance, To improve safety with gait, To improve health and function Manual Therapy Techniques to Include: Soft tissue mobilization For the Purpose of:: To increase ROM, To improve nutrient delivery to tissue, To decrease soft tissue restriction, To increase flexibility/ROM Thank you for the opportunity to evaluate your patient. For Medicare and Medicare HMO plans, please review the plan of care and approve it. It will need to be FAXED BACK to us at [phone] for Medicare purposes. For Medicare only, by signing this I certify the plan of care. Please let me know if there are questions or concerns regarding this plan of care. Physician Signature: Date: <Electronically signed by Martha BACH> 09/22/18 1402 CC: José Miguel Singleton MD; Avery Fischer DO Signed OT GENERAL EVALUATION Observed: 09/21/2018 Status: F Source: [place] 5:51 PM [facility] REPOSITORY [facility] [address] [place], [place] [address] Fax REHABILITATION SERVICES INITIAL EVALUATION MR#: [id number] Acct: [id number] Name: RICK GEORGE Rep #: [id number] : 1960 58 From: Marita Jacob Referring Dr.: José Miguel Singleton MD Status: REG R Insurance: [facility] Date: SELF PAY INSURANCE Patient's Visit Information RICK GEORGE is a 58 year old M, referred to Occupational Therapy by José Miguel Singleton MD, with a diagnosis of Weakness of B ahnd; Neuropathy. Date of Evaluation: 09/20/18 Occupational Therapist: Marita Jacob - Subjective Subjective: Arrived and noted that he has been referred to OT due to wrist and hand pain. He is familiar to OT as previous seen. Rick further explained that he had CABG in March 2018. He noted he has been completing cardiac rehab at [facility] and is still completing at this time. PMHx significant of DMII, CABG, and explained second CVA/TIA was found with most recent MRI in past year. 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 Decreased ability to complete full extension of R RF and PF due to claw hand deformity. Sensation severely decreased. - ROM Wrist: WFL MP: R 2-5th 0-89, 12-89, -7-0-90, -10-0-94; L 2-5th 0-76, 0-74, -30-86, -14-84 PIP: R 2-5th 36-104, 12-102, 52- 107, 54-92; L 2-5th 10-103, 25-105, 29-102, 35- DIP: R 2-5th 0-48, 5-63, 18-57, 30-53; L 2-5th 0-45, 0-57, 0-55, -8-51 ROM Comments: Completed active flexion only for PIP and DIP as he is unable to complete extension to neutral with PIP. Passively he able to get neutral with L hand on all PIP but R is more limited. - Strength Manager Equity: R 67, L 52 Lateral Pinch: R 14, L 10 Tripod Pinch: R 8, L 8 Tip-to-Tip Pinch: R 10, L 6 Strength Comments: Fingers easily slip off pincer meter. No pain. Pt. reports increased difficulty completing FMC pinch testing on L hand due to sensory impairments. - Sensation Thumb: R 4.56 , L 4.56 Index: R 4.56 , L 4.56 Middle: R 4.56 , L 5.07 Ring: R 4.56 , L 6.10 Little: R 4.56 , L 6.65+ Sensation Comments: Red lined on all touch sensation on B hands. He exhibits significant touch sensory impairments. Due to partial claw hand like deformity it is believe there is to be ulnar nerve impairements somewhere along B UE. He noted no EKG/nerve conduction for a few years and nothing pertinent from past MRI besides additional CVA. - Attention Attention: Normal - In-Hand Manipulation Finger to Palm Translation: Moderate - Right, Severe - Left Palm to Finger Translation: Moderate - Right, Moderate - Left Comments: significant sensory impairments on B hands. 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 Goal:: Rick to complete B pain management techniques to B hand to promote management of neuropathy symptoms with good safety awareness to decrease risk of injury by d/c. Goal:: Rick to be mod I to complete ability to complete 9 hole pegboard test to promote increased finger dexterity and increased sensory awareness by d/c. Goal:: Rick to complete sensory compensations with B hands to promote increased participation with tasks and decrease risk of further injury 100% of the time by d/c. Goal:: Rick to be mod I to don gloves with B hands with sensory based compensations 4/5 tirals 80% of the time by end of 2 weeks. Goal:: Rick to complete work related tasks with necessary compensations and a/e to promote increased ability to complete task and promote safety by d/c. Goal:: Alina to be mod I to complete button up shirt with use of button hook to promote increased ability to complete tasks 2/3 trials 75% of the time by d/c. - Rehabilitation General Assessment: Rick arrived for OT evaluation on this date of 09/20/18. He is familiar with OT as previous seen by OT post elbow surgery. At that time OT had fabricated protective splint due to increased partial claw hand deformity on B hands. Further management of splints to be completed. Additionally, OT to address strengthening, compensations for severe sensation deficits, as well as management techniques of pain. OT to also complete education on a/e and compensations to manage FMC and pinch deficits for ADL/IADLs. 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 Rehabilitation Potential: Fair - Anticipated Interventions Anticipated Interventions: A/AAROM/PROM, Strengthening, Modalities, Orthoses, Joint Protection/Energy Conservation, Ergonomic Education, Fine Motor Coord/Ernesto, Neuro Reeducation, Visual/Perceptual Skills, Cognitive Skills, ADL Training, Education re assistive Equipment, Caregiver Training, Home Program - Visit Plan Frequency: 2x /Week Duration: 6 Weeks General Plan: OT to work on completing sensory training to promote compensations with neuropathy, FMC, increased maintenance service supervisor strengthening, compensations and adaptions to promote completing self-care/IADLs and increase ability to return to PLOF. OT will adjust and completed management of hands with use of protective splint to decrease risk of further deformity. TEXT: Thank you for the opportunity to evaluate your patient. For Medicare and Medicare HMO plans, please review the plan of care and approve it. It will need to be FAXED BACK to us at [phone] for Medicare purposes. Please let me know if there are questions or concerns regarding this plan of care. Physician Signature: Date: <Electronically signed by Marita Jacob > 09/21/18 1759 CC: José Miguel Singleton MD; Avery Fischer DO KMB Signed For Medicare only, by signing this I certify the plan of care. Physicians Signature Date CBC W/DIFF, AUTOMATED Collected: 09/18/2018 Status: F Source: [place] 11:27 AM [facility] REPOSITORY TYPE CODE TESTS RESULT OUT OF RANGE REFERENCE UNITS LAB L100.1000 4.4-11.0 K/mm3 Normal WBC 5.7 LAB L100.1200 4.6-6.2 M/mm3 Low RBC 4.46 LAB L100.1300 13.0-16.5 g/dl Normal HGB 13.5 LAB L100.1400 40-54 % Normal HCT 43.0 LAB L100.1500 80-94 fL High MCV 96.4 LAB L100.1600 27.0-32.0 pg Normal MCH 30.3 LAB L100.1700 32-36 g/gl Low MCHC 31.4 LAB L100.1810 11.6-14.6 % High RDW CV 15.0 LAB L100.1820 35.1-43.9 fl High RDW SD 52.2 LAB L100.1900 150-450 K/mm3 Normal PLT 238 LAB L100.2000 6.2-12.0 fl Normal MPV 10.8 LAB L100.2100 47-70 % Normal NEUT% 57.4 LAB L100.2200 19-41 % Normal LY% 26.7 LAB L100.2300 0-10 % High MONO% 11.7 LAB L100.2400 0-5 % Normal EO% 3.0 LAB L100.2500 0-1 % Normal BASO% 0.9 LAB L100.2550 0.0-0.9 % Normal IM GRAN % 0.300 Result Comment: IG% - Immature Granulocytes (promyelocytes, myelocytes and metamyelocytes) > 1% indicates that a LEFT SHIFT is Present. LAB L100.2620 2.0-7.7 X10 3/uL Normal Absolute Neut 3.3 LAB L100.2720 0.83-4.51 X10 3/ul Normal Absolute Lymph 1.53 Performed By: #### L100.0100 #### [facility] [address] [place], [address] BASIC METABOLIC Collected: 09/18/2018 Status: F Source: [place] PROFILE (BMP) 11:27 AM [facility] REPOSITORY TYPE CODE TESTS RESULT OUT OF RANGE REFERENCE UNITS LAB L501.0100 74-106 mg/dL High GLU 134 Result Comment: Fasting Glucose result greater than or equal to 126 mg/dL suggests DIABETES MELLITUS per A.D.A. criteria. Please note revised GLUCOSE reference range effective 2017. LAB L501.1000 7-18 mg/dL Normal BUN 16 LAB L501.1100 0.70-1.30 mg/dL Normal CREAT,SERUM 1.03 Result Comment: The validity of the calculated GFR AND GFRAA in patients over 70 years has not been determined. Clinical correlation is essential. LAB L501.1110 >60 mL/min Normal EST GFR 79 Result Comment: Non- GFR Calc LAB L501.1115 >60 mL/min Normal EST GFR - AA 96 Result Comment: GFR Calc LAB L501.1300 10-20 RATIO Normal BUN/CRE 15.5 LAB L501.2200 8.5-10.1 mg/dL CA Normal 9.2 LAB L501.5300 136-145 mmol/L NA Normal 142 LAB L501.5600 3.5-5.1 mmol/L K Normal 4.5 LAB L501.5900 98-107 mmol/L CL Normal 104 LAB L501.6100 21.0-32.0 mmol/L Normal CO2 29.0 LAB L501.6200 5-15 Normal GAP 9 Performed By: #### L500.2500 #### [facility] [address] [place], [address] PROGRESS Observed: 09/12/2018 Status: COMPLETED Source: [place] 9:14 AM [facility] REPOSITORY HNO ID: [id number] Author: Radha Gannon Pineapple Plantation Manager Service: (none) Author Type: (none) Type: Progress Notes Filed: 09/12/2018 9:14 AM Note Text: HM letter mailed to patient. PROGRESS Observed: 09/11/2018 Status: COMPLETED Source: [place] 9:40 AM [facility] REPOSITORY HNO ID: [id number] Author: Catracho Mc (Rn) Service: (none) Author Type: Registered Nurse Type: Progress Notes Filed: 09/11/2018 11:39 AM Note Text: PRIMARY CARE COORDINATION FOLLOW-UP NOTE Provider Action/FYI 1. Spk with Pt who denies CP, Sob, denies edema, has chronic left arm pain from remote history of stroke. 2. Pt started Cardiac Rehab about one month ago, is doing well without needs or concerns. Patient identified by name and date of . YES Spoke to patient [employer] Agent plan for next outreach: DM Self Care-Hlth Maintenance: VM for Radha Gannon [facility] to please send Health Maintenance reminder letter Signature Jesusita Hayden RN September 11, 2018 PROGRESS Observed: 09/11/2018 Status: COMPLETED Source: [place] 9:32 AM [facility] HNO ID: [id number] Author: Ernestina Shahid LPN Service: (none) Author Type: (none) Type: Progress Notes Filed: 09/11/2018 9:38 AM Note Text: Patient presents for B-12 injection. Denies any problems at this time. Patient instructed on any SE of medication, verbalized understanding and agreed to proceed with treatment. Tolerated injection well. Ernestina Shahid LPN CNNURSE Observed: 09/11/2018 Status: COMPLETED Source: [place] 9:30 AM [facility] REPOSITORY Nurse Visit (FAMPWS) RICK GEORGE JR. ([id number]) 1960 M Date Time Provider Department 09/11/18 9:30 AM PA NURSE FAMPWS During your visit today, we recorded the following information about you: Ernestina Shahid LPN 09/11/2018 9:38 AM Signed Patient presents for B-12 injection. Denies any problems at this time. Patient instructed on any SE of medication, verbalized understanding and agreed to proceed with treatment. Tolerated injection well. Ernestina Shahid LPN Referring Provider: AVERY ESCALANTE [[id number]] Allergies As of Date: 09/11/2018 Noted Allergy Reaction LIPITOR (ATORVASTATIN CALCIUM) 01/07/2015 15 - Contraindication- Medical Olsen* Comments: Elevated LFTs and elevated CK level METFORMIN 03/01/2013 6 - Diarrhea Date Reviewed: 08/11/2018 Reviewed by: Lindsey Cochran LPN - Fully Assessed Reason for Visit: B-12 Injection [247] Primary Visit Diagnosis:Vitamin B12 deficiency [E53.8] Prescriptions as of 09/11/2018 Sig: ASPIRIN 81 MG CHEWABLE TABLET 2 tablets by ORAL/FEEDING TUB* GABAPENTIN 300 MG CAPSULE Take 3 capsules by mouth ever* ROSUVASTATIN 10 MG TABLET Take 1 tablet by mouth every * ASPIRIN 81 MG CHEWABLE TABLET TAKE 2 TABLETS BY MOUTH OR FE* METOPROLOL TARTRATE 25 MG TAB* Take 0.5 tablets by mouth abdiaziz* DIFLORASONE 0.05 % TOPICAL CR* APPLY CREAM TO AFFECTED AREA* KETOCONAZOLE 2 % TOPICAL CREAM APPLY TO AFFECTED AREA ON FA* MAGNESIUM 250 MG TABLET Take 250 mg by mouth. BIOTIN 1 MG CAPSULE Take by mouth. NIFEDIPINE ER 30 MG TABLET,EX* Take 30 mg by mouth once mele* CELECOXIB 200 MG CAPSULE Take 200 mg by mouth twice da* METANX ORAL Take by mouth. AMLODIPINE 5 MG TABLET Take 1 tablet by mouth twice * PEN NEEDLE, DIABETIC 31 GAUGE* USE TO GIVE INSULIN INJECTION* FUROSEMIDE 20 MG TABLET Take 1 tablet by mouth once d* ACETAMINOPHEN 325 MG TABLET Take 2 tablets by mouth every* SANTYL 250 UNIT/GRAM TOPICAL * Apply once daily LISINOPRIL 2.5 MG TABLET Take 1 tablet by mouth once d* INSULIN LISPRO (U-100) 100 UN* INJECT 12 TO 20 UNITS SUBCUTA* INSULIN GLARGINE (U-100) 100 * INJECT 20 UNITS SUBCUTANEOUSL* PEN NEEDLE, DIABETIC 31 GAUGE* USE TO GIVE INSULIN INJECTION* BASAGLAR KWIKPEN U-100 INSULI* INJECT 20 UNITS SUBCUTANEOUSL* HUMALOG KWIKPEN (U-100) INSUL* INJECT 12 TO 20 UNITS SUBCUTA* COMPOUNDED PRESCRIPTION Referral: wound clinic, [place]* SILVER SULFADIAZINE 1 % TOPIC* Apply 1 application to affect* NORTRIPTYLINE 50 MG CAPSULE TAKE ONE CAPSULE BY MOUTH ONC* CHOLECALCIFEROL (VITAMIN D3) * Take 1 capsule by mouth once * CETIRIZINE 10 MG TABLET TAKE ONE TABLET BY MOUTH ONCE* TADALAFIL 20 MG TABLET Take 1 tablet by mouth once d* BLOOD SUGAR DIAGNOSTIC STRIPS Check blood glucose three georgie* FREESTYLE LANCETS 28 GAUGE USE DIRECTED 3 TO 4 TIMES * BLOOD-GLUCOSE METER KIT Freestyle LITE Meter Kit - Dx* Problem List As Of Date 09/11/2018 Noted Resolved Diabetes 1.5, 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 Hyperlipidemia [E78.5] INVALID FOR* Priority: E More... Diabetes type 2, controlled [E11.9] INVALID FOR* Lower back pain [M54.5] INVALID FOR* Priority: D More... Hearing loss [H91.90] INVALID FOR* Dizziness [R42] INVALID FOR* Other musculoskeletal symptoms referable to mixon*INVALID FOR* Hereditary and idiopathic peripheral neuropathy*INVALID FOR* Vitamin B12 deficiency [E53.8] INVALID FOR* PAD (peripheral artery disease) ([facility]) [I73.9] INVALID FOR* Priority: C Small vessel disease ([facility]) [I99.9] INVALID FOR* DM (diabetes mellitus), type 2 with neurologica*INVALID FOR* Priority: E More... Diabetes mellitus with background retinopathy (*INVALID FOR*07/13/2016 Type 1 diabetes mellitus with mild nonprolifera*INVALID FOR*06/08/2016 Other vitreous opacities - Both Eyes [H43.399] INVALID FOR* Lens replaced by other means - Both Eyes [Z96.1]INVALID FOR*07/13/2016 CVA (cerebral vascular accident) ([facility]) [I63.9] INVALID FOR* Type 2 diabetes, controlled, with neuropathy (H*INVALID FOR* Type 2 diabetes mellitus with diabetic neuropat*INVALID FOR*01/29/2016 Type 2 diabetes mellitus with diabetic polyneur*INVALID FOR* After-cataract obscuring vision [H26.499] INVALID FOR* Pseudophakia of both eyes [Z96.1] INVALID FOR* Hyperopia [H52.00] INVALID FOR* Astigmatism, regular [H52.229] INVALID FOR* Vitreous floaters of both eyes [H43.393] INVALID FOR* Meibomian gland dysfunction (MGD) of upper and *INVALID FOR* NSTEMI (non-ST elevated myocardial infarction) *INVALID FOR* Priority: C More... Coronary artery disease involving [place] ricardo*INVALID FOR* Priority: A More... C. difficile colitis [A04.72] INVALID FOR* Priority: I More... More... Nicotine use disorder, F17.2 [F17.200] INVALID FOR* Priority: B More... Hypotension [I95.9] INVALID FOR*04/14/2018 Priority: C More... Cardiac insufficiency (HCC) [I50.9] INVALID FOR*04/14/2018 Priority: C More... Atelectasis [J98.11] INVALID FOR* Priority: B More... Post-operative pain [G89.18] INVALID FOR* Priority: D More... Depression [F32.9] INVALID FOR* Priority: D More... Transition of care performed with sharing of cl*INVALID FOR* Priority: Moderate More... Bilateral pneumothoraces [J93.9] INVALID FOR* Priority: B More... Discharge planning issues [Z02.9] INVALID FOR* More... Weight gain [R63.5] INVALID FOR* Decubitus ulcer of right heel [L89.619] INVALID FOR* History of sternectomy [Z98.890] INVALID FOR* Hx of CABG [Z95.1] INVALID FOR* Skin wound from surgical incision [T14.8XXA] INVALID FOR* Localized bacterial infection of skin [L08.9, B*INVALID FOR* Essential hypertension [I10] INVALID FOR* Other hyperlipidemia [E78.49] INVALID FOR* Coronary artery disease involving [place] ricardo*INVALID FOR* Raynaud's phenomenon without gangrene [I73.00] INVALID FOR* Encounter Status:Closed by ERNESTINA SHAHID LPN on 09/11/18 ADOLYA Observed: 09/11/2018 Status: COMPLETED Source: [place] 12:00 AM [facility] REPOSITORY Patient Outreach (FAMPWS) RICK GEORGE JR. ([id number]) 1960 M Date Time Provider Department 09/11/18 [facility] (RN) FAMPWS During your visit today, we recorded the following information about you: Jesusita Hayden RN 09/11/2018 11:39 AM Signed PRIMARY CARE COORDINATION FOLLOW-UP NOTE Provider Action/FYI 1. Spk with Pt who denies CP, Sob, denies edema, has chronic left arm pain from remote history of stroke. 2. Pt started Cardiac Rehab about one month ago, is doing well without needs or concerns. Patient identified by name and date of . YES Spoke to patient [employer] Agent plan for next outreach: DM Self Care-Hlth Maintenance: VM for Radha Gannon [facility] to please send Health Maintenance reminder letter Signature Jesusita Hayden RN September 11, 2018 Radha Gannon [facility] 09/12/2018 9:14 AM Signed HM letter mailed to patient. 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 BIOTIN 1 MG CAPSULE Take by mouth. NIFEDIPINE ER 30 MG TABLET,EX* Take 30 mg by mouth once meel* CELECOXIB 200 MG CAPSULE Take 200 mg by mouth twice da* METANX ORAL Take by mouth. AMLODIPINE 5 MG TABLET Take 1 tablet by mouth twice * PEN NEEDLE, DIABETIC 31 GAUGE* USE TO GIVE INSULIN INJECTION* FUROSEMIDE 20 MG TABLET Take 1 tablet by mouth once d* ACETAMINOPHEN 325 MG TABLET Take 2 tablets by mouth every* SANTYL 250 UNIT/GRAM TOPICAL * Apply once daily LISINOPRIL 2.5 MG TABLET Take 1 tablet by mouth once d* INSULIN LISPRO (U-100) 100 UN* INJECT 12 TO 20 UNITS SUBCUTA* INSULIN GLARGINE (U-100) 100 * INJECT 20 UNITS SUBCUTANEOUSL* PEN NEEDLE, DIABETIC 31 GAUGE* USE TO GIVE INSULIN INJECTION* BASAGLAR KWIKPEN U-100 INSULI* INJECT 20 UNITS SUBCUTANEOUSL* HUMALOG KWIKPEN (U-100) INSUL* INJECT 12 TO 20 UNITS SUBCUTA* COMPOUNDED PRESCRIPTION Referral: wound clinic, [place]* SILVER SULFADIAZINE 1 % TOPIC* Apply 1 application to affect* NORTRIPTYLINE 50 MG CAPSULE TAKE ONE CAPSULE BY MOUTH ONC* CHOLECALCIFEROL (VITAMIN D3) * Take 1 capsule by mouth once * CETIRIZINE 10 MG TABLET TAKE ONE TABLET BY MOUTH ONCE* TADALAFIL 20 MG TABLET Take 1 tablet by mouth once d* BLOOD SUGAR DIAGNOSTIC STRIPS Check blood glucose three georgie* FREESTYLE LANCETS 28 GAUGE USE DIRECTED 3 TO 4 TIMES * BLOOD-GLUCOSE METER KIT Freestyle LITE Meter Kit - Dx* Problem List As Of Date 09/11/2018 Noted Resolved Diabetes 1.5, 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 Hyperlipidemia [E78.5] INVALID FOR* Priority: E More... Diabetes type 2, controlled [E11.9] INVALID FOR* Lower back pain [M54.5] INVALID FOR* Priority: D More... Hearing loss [H91.90] INVALID FOR* Dizziness [R42] INVALID FOR* Other musculoskeletal symptoms referable to mixon*INVALID FOR* Hereditary and idiopathic peripheral neuropathy*INVALID FOR* Vitamin B12 deficiency [E53.8] INVALID FOR* PAD (peripheral artery disease) ([facility]) [I73.9] INVALID FOR* Priority: C Small vessel disease ([facility]) [I99.9] INVALID FOR* DM (diabetes mellitus), type 2 with neurologica*INVALID FOR* Priority: E More... Diabetes mellitus with background retinopathy (*INVALID FOR*07/13/2016 Type 1 diabetes mellitus with mild nonprolifera*INVALID FOR*06/08/2016 Other vitreous opacities - Both Eyes [H43.399] INVALID FOR* Lens replaced by other means - Both Eyes [Z96.1]INVALID FOR*07/13/2016 CVA (cerebral vascular accident) ([facility]) [I63.9] INVALID FOR* Type 2 diabetes, controlled, with neuropathy (H*INVALID FOR* Type 2 diabetes mellitus with diabetic neuropat*INVALID FOR*01/29/2016 Type 2 diabetes mellitus with diabetic polyneur*INVALID FOR* After-cataract obscuring vision [H26.499] INVALID FOR* Pseudophakia of both eyes [Z96.1] INVALID FOR* Hyperopia [H52.00] INVALID FOR* Astigmatism, regular [H52.229] INVALID FOR* Vitreous floaters of both eyes [H43.393] INVALID FOR* Meibomian gland dysfunction (MGD) of upper and *INVALID FOR* NSTEMI (non-ST elevated myocardial infarction) *INVALID FOR* Priority: C More... Coronary artery disease involving [place] ricardo*INVALID FOR* Priority: A More... C. difficile colitis [A04.72] INVALID FOR* Priority: I More... More... Nicotine use disorder, F17.2 [F17.200] INVALID FOR* Priority: B More... Hypotension [I95.9] INVALID FOR*04/14/2018 Priority: C More... Cardiac insufficiency (HCC) [I50.9] INVALID FOR*04/14/2018 Priority: C More... Atelectasis [J98.11] INVALID FOR* Priority: B More... Post-operative pain [G89.18] INVALID FOR* Priority: D More... Depression [F32.9] INVALID FOR* Priority: D More... Transition of care performed with sharing of cl*INVALID FOR* Priority: Moderate More... Bilateral pneumothoraces [J93.9] INVALID FOR* Priority: B More... Discharge planning issues [Z02.9] INVALID FOR* More... Weight gain [R63.5] INVALID FOR* Decubitus ulcer of right heel [L89.619] INVALID FOR* History of sternectomy [Z98.890] INVALID FOR* Hx of CABG [Z95.1] INVALID FOR* Skin wound from surgical incision [T14.8XXA] INVALID FOR* Localized bacterial infection of skin [L08.9, B*INVALID FOR* Essential hypertension [I10] INVALID FOR* Other hyperlipidemia [E78.49] INVALID FOR* Coronary artery disease involving [place] ricardo*INVALID FOR* Raynaud's phenomenon without gangrene [I73.00] INVALID FOR* Letter Text [facility] [place] [address] [facility] [address] Dept: [phone] Formerly [facility].A. September 12, 2018 Rick George Jr. [address] [place] [id number] Dear Josh Doris In an effort to serve your healthcare needs, it has come to the attention of Avery Escalante DO, your Primary Care Provider, that you are overdue for routine health maintenance. You are due for the following health maintenance(s) Health Maintenance Due: DILATED RETINAL EXAM due on 02/03/2018 FECAL OCCULT BLOOD due on 07/27/2018 If any of these routine health care items were completed by an outside facility, please have that office fax the results to [phone] Attn: Avery Escalante DO or bring the records with you to your appointment. We will gladly update your record. If you have any questions, please feel free to call the office at [phone] or message us via [employer]. Thank you for choosing the [facility]. Sincerely, Radha Gannon [facility] [place] M.AJosh (electronically signed to expedite mailing) Encounter Status:Closed by JESUSITA HAYDEN on 09/11/18 PROGRESS Observed: 08/11/2018 Status: COMPLETED Source: [place] 9:58 AM [facility] REPOSITORY HNO ID: [id number] Author: Avery Escalante Service: (none) Author Type: Physician Type: Progress Notes Filed: 08/14/2018 7:42 AM Note Text: Patient presents with: Follow Up: 3 months Imm/Inj: Flu Vaccine HPI: Rick George Jr. is a 58 year old male who presents to the office today for review of health conditions. Concerns today: Seen in office 05/10, at that time- About 4 weeks out from multivessel CABG surgery after presenting to [facility] for fatigue and left rib pain after baling hay, was found to have critical stenosis of LAD and several other arteries, was transported up to [facility] and had bypass surgery performed. He is overall doing well after surgery. Diagnosed with C difficile colitis and is starting on Flagyl, had been treated with oral vancomycin the 1st time but was 3-4 tablets short of full course of treatment due to insurance coverage issues. 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 Has had some poor healing of inferior sternal incision and chest tube area on left. ? He had follow up with cardiothoracic surgery on 05/25, he is healing well. He is getting back to activities, has been mostly limiting his lifting but does admit to lifting 50 lb feed bags x 30-40 bags this last week, No chest pain with this. Mr. George has past history of diabetes. Since our last visit he denies excessive thirst or increased frequency of urination, chest pain or dyspnea , new or unusual visual symptoms and low sugar/hypoglycemic reactions. Follows a diabetic diet some of the time. He is compliant with medication(s) and is tolerating med(s) without any side effects. He reports checking his glucose on a twice a day schedule with sugars in the fasting 100-150 range. Patient's last HgA1C was Hemoglobin A1C (%) Date Value 07/26/2018 6.2 04/04/2018 5.7 ) Last Ophthalmology exam was within the past 12 months Mr. George reports history of hyperlipidemia. Current therapy includes rosuvastatin (Crestor) 10 mg. Denies side effects of muscle weakness or achiness. His most recent lipid panels are reviewed. Cholesterol, Total (mg/dL) Date Value 04/04/2018 92 HDL Cholesterol (mg/dL) Date Value 04/04/2018 24 LDL Cholesterol (mg/dL) Date Value 04/04/2018 56 Triglyceride (mg/dL) Date Value 04/04/2018 58 Mr. George indicates a history of hypertension and states that he is feeling well and denies any symptoms referable to elevated blood pressure. Specifically denies headache, chest pain, palpitations, dyspnea and peripheral edema. Patient denies any side effects of his medication(s) and is compliant with their regimen. Last 3 Encounter BP Readings: Date: BP: 08/11/2018 116/60 06/15/2018 110/64 05/25/2018 122/84 He watches his diet for sodium, low fat and low cholesterol some of the time. He does not check BP's generally. Rick gets sporadic irregular exercise. PAST MEDICAL HISTORY Diagnosis Date - Cataract b/l, eye exam 05/29/13 - CTS (carpal tunnel syndrome) 10/2013 b/l, chronic, Dr. 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 Mazin Hinojosa Neuro, likely from DM and Vitamin B12 defic - Stroke ([facility]) 10/01/13 - Ulnar neuropathy 10/2013 b/l, chronic, Dr. Mazin Hinojosa EMG - Vitamin D deficiency 11/2013 PAST SURGICAL HISTORY Procedure Laterality Date - DISCISSION,2ND CATARACT,LASER 06/07/2013 Yag Capsulotomy-Right eye - LASER, SECONDARY CATARACT 2006 OU - PAST SURGICAL HISTORY OF 02/2013 Amputation Right Gt toe Social History Marital status: Domestic Partner Spouse name: Years of education: Number of children: 3 Occupational History Occupation Employer Comment [employer] Social History Main Topics Smoking status: Never Smoker Smokeless tobacco: Former User Types: Chew Alcohol use: No Drug use: No Sexual activity: Yes Partners with: Female Other Topics Concern Caffeine Concern Yes Special Diet Yes Comment:watch carbs Exercise Yes FAMILY HISTORY Problem Relation Age of Onset - Diabetes Mother - Heart Father - Heart Paternal Grandmother - Heart Paternal Grandfather Allergies: ALLERGIES Allergen Reactions - Lipitor [Atorvastat* Contraindication-Medical Surgical Elevated LFTs and elevated CK level - Metformin Diarrhea Current Meds: Magnesium 250 mg tab Take 250 mg by mouth. biotin 1 mg cap Take by mouth. NIFEdipine ER (PROCARDIA XL) 30 mg 24 hr tablet Take 30 mg by mouth once daily. celecoxib (CELEBREX) 200 mg capsule Take 200 mg by mouth twice daily. mecobalamin/L-mefolate/B6 phos (METANX ORAL) Take by mouth. amLODIPine (NORVASC) 5 mg tablet Take 1 tablet by mouth twice daily. insulin needles, DISPOSABLE, 31 gauge x 5/16 ndle USE TO GIVE INSULIN INJECTIONS 4 TIMES DAILY furosemide (LASIX) 20 mg tablet Take 1 tablet by mouth once daily. acetaminophen (TYLENOL) 325 mg tablet Take 2 tablets by mouth every 6 hours as needed for Pain. SANTYL ointment Apply once daily insulin lispro (HUMALOG KWIKPEN INSULIN) 100 unit/mL inpn INJECT 12 TO 20 UNITS SUBCUTANEOUSLY WITH MEALS DIRECTED insulin glargine (BASAGLAR KWIKPEN U-100 INSULIN) 100 unit/mL (3 mL) inpn INJECT 20 UNITS SUBCUTANEOUSLY ONCE DAILY AT BEDTIME insulin needles, DISPOSABLE, (BD INSULIN PEN NEEDLE UF) 31 gauge x 5/16 ndle USE TO GIVE INSULIN INJECTIONS 4 TIMES DAILY BASAGLAR KWIKPEN U-100 INSULIN 100 unit/mL (3 mL) inpn INJECT 20 UNITS SUBCUTANEOUSLY AT BEDTIME HUMALOG KWIKPEN INSULIN 100 unit/mL inpn INJECT 12 TO 20 UNITS SUBCUTANEOUSLY WITH MEALS DIRECTED rosuvastatin (CRESTOR) 10 mg tablet Take 1 tablet by mouth every 48 hours. metoprolol tartrate, short acting, (LOPRESSOR) 25 mg tablet Take 0.5 tablets by mouth every 12 hours. aspirin 81 mg chewable tablet 2 tablets by ORAL/FEEDING TUBE route once daily. gabapentin (NEURONTIN) 300 mg capsule Take 3 capsules by mouth every 8 hours for 30 days. silver sulfADIAZINE (SSD) 1 % cream Apply 1 application to affected area once daily. nortriptyline (PAMELOR) 50 mg capsule TAKE ONE CAPSULE BY MOUTH ONCE DAILY AT BEDTIME Cholecalciferol, Vitamin D3, 5,000 unit cap Take 1 capsule by mouth once daily. cetirizine (ZYRTEC) 10 mg tablet TAKE ONE TABLET BY MOUTH ONCE DAILY Tadalafil (CIALIS) 20 mg tab(s) Take 1 tablet by mouth once daily. blood sugar diagnostic (FREESTYLE LITE STRIPS) test strip Check blood glucose three times daily. Dx: E11.42, Insulin dependent FREESTYLE LANCETS 28 gauge misc USE DIRECTED 3 TO 4 TIMES DAILY TO TEST BLOOD GLUCOSE Blood-Glucose Meter (FREESTYLE LITE METER) monitoring kit Freestyle LITE Meter Kit - Dx: Type 2 DM - Controlled E11.9 lisinopril 2.5 mg tablet Take 1 tablet by mouth once daily. COMPOUNDED PRESCRIPTION Referral: wound clinic, [facility] Review of Systems: The remainder of the review of systems is negative. PE: 08/11/18 0933 BP: 116/60 Pulse: 76 Resp: 16 Temp: 36.3 ?C (97.3 ?F) TempSrc: Left Tympanic Weight: 94.3 kg (208 lb) Gen: AANDO, NAD, non-toxic appearing, Pleasant, cooperative HEENT: NT/AC, PERRLA, EOMs intact b/l, nares clear and patent b/l, pharynx without erythema, exudate or lesions. Uvula midline. MMM Neck: supple, No cervical LAD, no thyromegaly, no carotid bruits CV: RRR, normal S1 and S2, 2/6 HSM RUSB murmurs, no gallops, no rubs, Pulses 2+ and symmetric in UE and LE b/l Lungs: normal respiratory effort, CTA b/l, no wheezing or rhonchi or rales Healed sternal incision Abd: soft, NT, ND, +BS, no hepatosplenomegaly MS: peripheral atrophy hands and less active ROM and use of hands and arms Legs also with atrophy changes Mild trace right lower leg >left lower leg edema Neuro: CN II-XII intact b/l, strength 5/5 b/l UE and LE, DTRs 2/4 UE and LE, sensation intact. Skin: warm, dry, intact, see above ASSESSMENT/PLAN: 1. DM (diabetes mellitus), type 2 with neurological complications (HCC) - ICD9: 250.60, ICD10: E11.49 (primary diagnosis) Controlled. - Continue current medications - Blood glucose monitoring on a twice a day schedule - BP goal of <130/80 - LDL goal of <100 2. Need for vaccination - ICD9: V05.9, ICD10: Z23 - INFLUENZA VACCINE QUADRIVALENT AGE 3 YRS PLUS + IM 3. Screening for colon cancer - ICD9: V76.51, ICD10: Z12.11 - FECAL OCCULT BLOOD TEST 4. Vitamin B12 deficiency - ICD9: 266.2, ICD10: E53.8 - stable, continue vitamin B12 5. Hx of CABG - ICD9: V45.81, ICD10: Z95.1 - f/u with surgeon, continue same medications 6. Raynaud's phenomenon without gangrene - ICD9: 443.0, ICD10: I73.00 - consider increased dose of amlodipine as d/w him today 7. Coronary artery disease involving [place] coronary artery of [place] heart with unstable angina pectoris (HCC) - ICD9: 414.01, 411.1, ICD10: I25.110 - see above, s/p CABG in the last 3-4 months 8. Other hyperlipidemia - ICD9: 272.4, ICD10: E78.49 - good control - Continue current medication. - Encouraged following a low fat, low cholesterol diet. - Discussed the benefits of regular aerobic exercise and weight loss. 9. Essential hypertension - ICD9: 401.9, ICD10: I10 - Stable/good control - Continue current medication(s) - Encouraged dietary sodium restriction/DASH diet - Recommended regular aerobic exercise. - Recommend home blood pressure monitoring, to bring results in on next visit - Goal of BP <130/80 10. Hereditary and idiopathic peripheral neuropathy - ICD9: 356.9, ICD10: G60.9 - see above, stable Avery Escalante, DO To ER if develops chest pain, shortness of breath, or severe worsening of symptoms. Discussed risks, benefits, alternatives, and potential side effects of medications. Patient expressed understanding and agreed with the plan. Avery Escalante, DO [address] [place] [address] PROGRESS Observed: 08/11/2018 Status: COMPLETED Source: [place] 9:41 AM [facility] [place] REPOSITORY HNO ID: [id number] Author: Lindsey Cochran LPN Service: (none) Author Type: (none) Type: Progress Notes Filed: 08/14/2018 7:42 AM Note Text: 58 year old male here for INACTIVATED INFLUENZA VACCINE. [id number] Season Patient is identified by name and date of : Yes [] CONTRAINDICATIONS color enhanced section Age less than 6 months? No Allergy to eggs, chicken, chicken feathers, or chicken dander? No Allergy to thimerosal (a preservative) or formaldehyde, gelatin? No History of severe reaction to any vaccine component or a previous dose of influenza vaccination? No History of Guillain-Motley Syndrome within 6 weeks after a previous influenza vaccine? No Patient is not moderately or severely ill? No Current temperature greater or equal to 100.4F? No History of Bone Marrow Transplant prior 6 months or solid organ transplant in the past 3 months ? No History of fainting after a prior injection or medical procedure? No- ? If patient has fainted in the past, the CDC recommends sitting or lying down for 15 minutes after the vaccination. [] VERIFICATION color enhanced section Was the answer Yes for any of the above contraindications? No contraindications present. Acceptable to proceed with vaccine. Patient/guardian agrees the above answers are true to the best of their knowledge? Yes Flu vaccine information sheet given? Yes See immunization activity in [facility]ofl [facility]izations adminst[facility]. Patient age: [age] year old For The 4697-8996 Flu Season 6-35 months old: Fluzone 0.25 ml - IM (Preservative Free) 3 years of age: Fluzone 0.5 ml - IM (Preservative Free) 3 years and older: Fluzone 0.5 ml- IM-(with Preservatives) 65+ years old: 2-49 years old Fluzone High-Dose 0.5 ml - IM (Preservative Free) FLUMIST- intranasal REMEMBER: If patient is less than 9 years of age and this is the first vaccine of Influenza to be received in any flu season, they should receive a second dose in one months time. CNOV Observed: 08/11/2018 Status: COMPLETED Source: [place] 9:20 AM [facility] REPOSITORY [facility] RICK GEORGE JR. ([id number]) 1960 M Date Time Provider Department 08/11/18 9:20 AM AVERY ESCALANTE [facility] During your visit today, we recorded the following information about you: Temperature Pulse Respiration Blood pressure 97.3 degrees 76/minute 16/minute 116/60 Weight 94.3 kg Lindsey Cochran LPN 08/14/2018 7:42 AM Signed 58 year old male here for INACTIVATED INFLUENZA VACCINE. Season Patient is identified by name and date of : Yes [] CONTRAINDICATIONS color enhanced section Age less than 6 months? No Allergy to eggs, chicken, chicken feathers, or chicken dander? No Allergy to thimerosal (a preservative) or formaldehyde, gelatin? No History of severe reaction to any vaccine component or a previous dose of influenza vaccination? No History of Guillain-Motley Syndrome within 6 weeks after a previous influenza vaccine? No Patient is not moderately or severely ill? No Current temperature greater or equal to 100.4F? No History of Bone Marrow Transplant prior 6 months or solid organ transplant in the past 3 months ? No History of fainting after a prior injection or medical procedure? No- ? If patient has fainted in the past, the CDC recommends sitting or lying down for 15 minutes after the vaccination. [] VERIFICATION color enhanced section Was the answer Yes for any of the above contraindications? No contraindications present. Acceptable to proceed with vaccine. Patient/guardian agrees the above answers are true to the best of their knowledge? Yes Flu vaccine information sheet given? Yes See immunization activity in [facility] for details of immunizations adminstered today. Patient age: [age] year old For The 0726-2041 Flu Season 6-35 months old: Fluzone 0.25 ml - IM (Preservative Free) 3 years of age: Fluzone 0.5 ml - IM (Preservative Free) 3 years and older: Fluzone 0.5 ml- IM-(with Preservatives) 65+ years old: 2-49 years old Fluzone High-Dose 0.5 ml - IM (Preservative Free) FLUMIST- intranasal REMEMBER: If patient is less than 9 years of age and this is the first vaccine of Influenza to be received in any flu season, they should receive a second dose in one months time. Avery Escalante DO 08/14/2018 7:42 AM Signed Patient presents with: Follow Up: 3 months Imm/Inj: Flu Vaccine HPI: Rick Jayy George Jr. is a 58 year old male who presents to the office today for review of health conditions. Concerns today: Seen in office 05/10, at that time- About 4 weeks out from multivessel CABG surgery after presenting to [facility] for fatigue and left rib pain after baling hay, was found to have critical stenosis of LAD and several other arteries, was transported up to [facility] and had bypass surgery performed. He is overall doing well after surgery. Diagnosed with C difficile colitis and is starting on Flagyl, had been treated with oral vancomycin the 1st time but was 3-4 tablets short of full course of treatment due to insurance coverage issues. 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 Has had some poor healing of inferior sternal incision and chest tube area on left. ? He had follow up with cardiothoracic surgery on 05/25, he is healing well. He is getting back to activities, has been mostly limiting his lifting but does admit to lifting 50 lb feed bags x 30-40 bags this last week, No chest pain with this. Mr. George has past history of diabetes. Since our last visit he denies excessive thirst or increased frequency of urination, chest pain or dyspnea , new or unusual visual symptoms and low sugar/hypoglycemic reactions. Follows a diabetic diet some of the time. He is compliant with medication(s) and is tolerating med(s) without any side effects. He reports checking his glucose on a twice a day schedule with sugars in the fasting 100-150 range. Patient's last HgA1C was Hemoglobin A1C (%) Date Value 07/26/2018 6.2 04/04/2018 5.7 ) Last Ophthalmology exam was within the past 12 months Mr. George reports history of hyperlipidemia. Current therapy includes rosuvastatin (Crestor) 10 mg. Denies side effects of muscle weakness or achiness. His most recent lipid panels are reviewed. Cholesterol, Total (mg/dL) Date Value 04/04/2018 92 HDL Cholesterol (mg/dL) Date Value 04/04/2018 24 LDL Cholesterol (mg/dL) Date Value 04/04/2018 56 Triglyceride (mg/dL) Date Value 04/04/2018 58 Mr. George indicates a history of hypertension and states that he is feeling well and denies any symptoms referable to elevated blood pressure. Specifically denies headache, chest pain, palpitations, dyspnea and peripheral edema. Patient denies any side effects of his medication(s) and is compliant with their regimen. Last 3 Encounter BP Readings: Date: BP: 08/11/2018 116/60 06/15/2018 110/64 05/25/2018 122/84 He watches his diet for sodium, low fat and low cholesterol some of the time. He does not check BP's generally. Rick gets sporadic irregular exercise. PAST MEDICAL HISTORY Diagnosis Date - Cataract b/l, eye exam 05/29/13 - CTS (carpal tunnel syndrome) 10/2013 b/l, chronic, Dr. 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 Mazin Hinojosa Neuro, likely from DM and Vitamin B12 defic - Stroke ([facility]) 10/01/13 - Ulnar neuropathy 10/2013 b/l, chronic, Dr. Mazin Hinojosa EMG - Vitamin D deficiency 11/2013 PAST SURGICAL HISTORY Procedure Laterality Date - DISCISSION,2ND CATARACT,LASER 06/07/2013 Yag Capsulotomy-Right eye - LASER, SECONDARY CATARACT 2006 OU - PAST SURGICAL HISTORY OF 02/2013 Amputation Right Gt toe Social History Marital status: Domestic Partner Spouse name: Years of education: Number of children: 3 Occupational History Occupation Employer Comment [employer] Social History Main Topics Smoking status: Never Smoker Smokeless tobacco: Former User Types: Chew Alcohol use: No Drug use: No Sexual activity: Yes Partners with: Female Other Topics Concern Caffeine Concern Yes Special Diet Yes Comment:watch carbs Exercise Yes FAMILY HISTORY Problem Relation Age of Onset - Diabetes Mother - Heart Father - Heart Paternal Grandmother - Heart Paternal Grandfather Allergies: ALLERGIES Allergen Reactions - Lipitor [Atorvastat* Contraindication-Medical Surgical Elevated LFTs and elevated CK level - Metformin Diarrhea Current Meds: Magnesium 250 mg tab Take 250 mg by mouth. biotin 1 mg cap Take by mouth. NIFEdipine ER (PROCARDIA XL) 30 mg 24 hr tablet Take 30 mg by mouth once daily. celecoxib (CELEBREX) 200 mg capsule Take 200 mg by mouth twice daily. mecobalamin/L-mefolate/B6 phos (METANX ORAL) Take by mouth. amLODIPine (NORVASC) 5 mg tablet Take 1 tablet by mouth twice daily. insulin needles, DISPOSABLE, 31 gauge x 03/01 ndle USE TO GIVE INSULIN INJECTIONS 4 TIMES DAILY furosemide (LASIX) 20 mg tablet Take 1 tablet by mouth once daily. acetaminophen (TYLENOL) 325 mg tablet Take 2 tablets by mouth every 6 hours as needed for Pain. SANTYL ointment Apply once daily insulin lispro (HUMALOG KWIKPEN INSULIN) 100 unit/mL inpn INJECT 12 TO 20 UNITS SUBCUTANEOUSLY WITH MEALS DIRECTED insulin glargine (BASAGLAR KWIKPEN U-100 INSULIN) 100 unit/mL (3 mL) inpn INJECT 20 UNITS SUBCUTANEOUSLY ONCE DAILY AT BEDTIME insulin needles, DISPOSABLE, (BD INSULIN PEN NEEDLE UF) 31 gauge x 5/16 ndle USE TO GIVE INSULIN INJECTIONS 4 TIMES DAILY BASAGLAR KWIKPEN U-100 INSULIN 100 unit/mL (3 mL) inpn INJECT 20 UNITS SUBCUTANEOUSLY AT BEDTIME HUMALOG KWIKPEN INSULIN 100 unit/mL inpn INJECT 12 TO 20 UNITS SUBCUTANEOUSLY WITH MEALS DIRECTED rosuvastatin (CRESTOR) 10 mg tablet Take 1 tablet by mouth every 48 hours. metoprolol tartrate, short acting, (LOPRESSOR) 25 mg tablet Take 0.5 tablets by mouth every 12 hours. aspirin 81 mg chewable tablet 2 tablets by ORAL/FEEDING TUBE route once daily. gabapentin (NEURONTIN) 300 mg capsule Take 3 capsules by mouth every 8 hours for 30 days. silver sulfADIAZINE (SSD) 1 % cream Apply 1 application to affected area once daily. nortriptyline (PAMELOR) 50 mg capsule TAKE ONE CAPSULE BY MOUTH ONCE DAILY AT BEDTIME Cholecalciferol, Vitamin D3, 5,000 unit cap Take 1 capsule by mouth once daily. cetirizine (ZYRTEC) 10 mg tablet TAKE ONE TABLET BY MOUTH ONCE DAILY Tadalafil (CIALIS) 20 mg tab(s) Take 1 tablet by mouth once daily. blood sugar diagnostic (FREESTYLE LITE STRIPS) test strip Check blood glucose three times daily. Dx: E11.42, Insulin dependent FREESTYLE LANCETS 28 gauge [facility] [place] DIRECTED 3 TO 4 TIMES DAILY TO TEST BLOOD GLUCOSE Blood-Glucose Meter (FREESTYLE LITE METER) monitoring kit Freestyle LITE Meter Kit - Dx: Type 2 DM - Controlled E11.9 lisinopril 2.5 mg tablet Take 1 tablet by mouth once daily. COMPOUNDED PRESCRIPTION Referral: wound clinic, [facility] Review of Systems: The remainder of the review of systems is negative. PE: 08/11/18 0933 BP: 116/60 Pulse: 76 Resp: 16 Temp: 36.3 ?C (97.3 ?F) TempSrc: Left Tympanic Weight: 94.3 kg (208 lb) Gen: AANDO, NAD, non-toxic appearing, Pleasant, cooperative HEENT: NT/AC, PERRLA, EOMs intact b/l, nares clear and patent b/l, pharynx without erythema, exudate or lesions. Uvula midline. MMM Neck: supple, No cervical LAD, no thyromegaly, no carotid bruits CV: RRR, normal S1 and S2, 2/6 HSM RUSB murmurs, no gallops, no rubs, Pulses 2+ and symmetric in UE and LE b/l Lungs: normal respiratory effort, CTA b/l, no wheezing or rhonchi or rales Healed sternal incision Abd: soft, NT, ND, +BS, no hepatosplenomegaly MS: peripheral atrophy hands and less active ROM and use of hands and arms Legs also with atrophy changes Mild trace right lower leg >left lower leg edema Neuro: CN II-XII intact b/l, strength 5/5 b/l UE and LE, DTRs 2/4 UE and LE, sensation intact. Skin: warm, dry, intact, see above ASSESSMENT/PLAN: 1. DM (diabetes mellitus), type 2 with neurological complications (HCC) - ICD9: 250.60, ICD10: E11.49 (primary diagnosis) Controlled. - Continue current medications - Blood glucose monitoring on a twice a day schedule - BP goal of <130/80 - LDL goal of <100 2. Need for vaccination - ICD9: V05.9, ICD10: Z23 - INFLUENZA VACCINE QUADRIVALENT AGE 3 YRS PLUS + IM 3. Screening for colon cancer - ICD9: V76.51, ICD10: Z12.11 - FECAL OCCULT BLOOD TEST 4. Vitamin B12 deficiency - ICD9: 266.2, ICD10: E53.8 - stable, continue vitamin B12 5. Hx of CABG - ICD9: V45.81, ICD10: Z95.1 - f/u with surgeon, continue same medications 6. Raynaud's phenomenon without gangrene - ICD9: 443.0, ICD10: I73.00 - consider increased dose of amlodipine as d/w him today 7. Coronary artery disease involving [place] coronary artery of [place] heart with unstable angina pectoris (HCC) - ICD9: 414.01, 411.1, ICD10: I25.110 - see above, s/p CABG in the last 3-4 months 8. Other hyperlipidemia - ICD9: 272.4, ICD10: E78.49 - good control - Continue current medication. - Encouraged following a low fat, low cholesterol diet. - Discussed the benefits of regular aerobic exercise and weight loss. 9. Essential hypertension - ICD9: 401.9, ICD10: I10 - Stable/good control - Continue current medication(s) - Encouraged dietary sodium restriction/DASH diet - Recommended regular aerobic exercise. - Recommend home blood pressure monitoring, to bring results in on next visit - Goal of BP <130/80 10. Hereditary and idiopathic peripheral neuropathy - ICD9: 356.9, ICD10: G60.9 - see above, stable Avery Escalante DO To ER if develops chest pain, shortness of breath, or severe worsening of symptoms. Discussed risks, benefits, alternatives, and potential side effects of medications. Patient expressed understanding and agreed with the plan. Avery Escalante DO [address] [place] [address] Referring Provider: AVERY ESCALANTE [[id number]] Allergies As of Date: 08/11/2018 Noted Allergy Reaction LIPITOR (ATORVASTATIN CALCIUM) 01/07/2015 15 - Contraindication- Medical Olsen* Comments: Elevated LFTs and elevated CK level METFORMIN 03/01/2013 6 - Diarrhea Date Reviewed: 08/11/2018 Reviewed by: Lindsey Cochran LPN - Fully Assessed Reason for Visit: Follow Up [171] Cmt: 3 months Imm/Inj [58] Cmt: Flu Vaccine Reason For Visit History Recorded Primary Visit Diagnosis:DM (diabetes mellitus), type 2 with neurological complications (HCC) [E11.49] Other Visit Diagnoses:Need for vaccination [Z23] Screening for colon cancer [Z12.11] Vitamin B12 deficiency [E53.8] Hx of CABG [Z95.1] Raynaud's phenomenon without gangrene [I73.00] Coronary artery disease involving [place] coronary artery of [place] heart with unstable angina pectoris (HCC) [I25.110] Other hyperlipidemia [E78.49] Essential hypertension [I10] Hereditary and idiopathic peripheral neuropathy [G60.9] Order(s):INFLUENZA VACCINE QUADRIVALENT AGE 3 YRS PLUS + IM [10465DMS] Order #: [id number] FECAL OCCULT BLOOD TEST [SQIFOBT] Order #: [id number] FUTURE amLODIPine (NORVASC) 5 mg tabletTake 1 tablet by mouth twice daily.Disp: 60 tabletRfl: 3 Prescriptions as of 08/11/2018 Sig: MAGNESIUM 250 MG TABLET Take 250 mg by mouth. BIOTIN 1 MG CAPSULE Take by mouth. NIFEDIPINE ER 30 MG TABLET,EX* Take 30 mg by mouth once mele* CELECOXIB 200 MG CAPSULE Take 200 mg by mouth twice da* METANX ORAL Take by mouth. AMLODIPINE 5 MG TABLET Take 1 tablet by mouth twice * PEN NEEDLE, DIABETIC 31 GAUGE* USE TO GIVE INSULIN INJECTION* FUROSEMIDE 20 MG TABLET Take 1 tablet by mouth once d* ACETAMINOPHEN 325 MG TABLET Take 2 tablets by mouth every* SANTYL 250 UNIT/GRAM TOPICAL * Apply once daily INSULIN LISPRO (U-100) 100 UN* INJECT 12 TO 20 UNITS SUBCUTA* INSULIN GLARGINE (U-100) 100 * INJECT 20 UNITS SUBCUTANEOUSL* PEN NEEDLE, DIABETIC 31 GAUGE* USE TO GIVE INSULIN INJECTION* BASAGLAR KWIKPEN U-100 INSULI* INJECT 20 UNITS SUBCUTANEOUSL* HUMALOG KWIKPEN (U-100) INSUL* INJECT 12 TO 20 UNITS SUBCUTA* ROSUVASTATIN 10 MG TABLET Take 1 tablet by mouth every * METOPROLOL TARTRATE 25 MG TAB* Take 0.5 tablets by mouth abdiaziz* ASPIRIN 81 MG CHEWABLE TABLET 2 tablets by ORAL/FEEDING TUB* GABAPENTIN 300 MG CAPSULE Take 3 capsules by mouth ever* SILVER SULFADIAZINE 1 % TOPIC* Apply 1 application to affect* NORTRIPTYLINE 50 MG CAPSULE TAKE ONE CAPSULE BY MOUTH ONC* CHOLECALCIFEROL (VITAMIN D3) * Take 1 capsule by mouth once * CETIRIZINE 10 MG TABLET TAKE ONE TABLET BY MOUTH ONCE* TADALAFIL 20 MG TABLET Take 1 tablet by mouth once d* BLOOD SUGAR DIAGNOSTIC STRIPS Check blood glucose three georgie* FREESTYLE LANCETS 28 GAUGE USE DIRECTED 3 TO 4 TIMES * BLOOD-GLUCOSE METER KIT Freestyle LITE Meter Kit - Dx* LISINOPRIL 2.5 MG TABLET Take 1 tablet by mouth once d* COMPOUNDED PRESCRIPTION Referral: wound clinic, [place]* Medication notes this encounter LISINOPRIL 2.5 MG TABLET >> Lindsey Cochran LPN 08/11/2018 9:36 AM >> LINDSEY COCHRAN LPN TueAug 11, 2018 9:36 AM Finished Problem List As Of Date 08/11/2018 Noted Resolved Diabetes 1.5, 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 Hyperlipidemia [E78.5] INVALID FOR* Priority: E More... Diabetes type 2, controlled [E11.9] INVALID FOR* Lower back pain [M54.5] INVALID FOR* Priority: D More... Hearing loss [H91.90] INVALID FOR* Dizziness [R42] INVALID FOR* Other musculoskeletal symptoms referable to mixon*INVALID FOR* Hereditary and idiopathic peripheral neuropathy*INVALID FOR* Vitamin B12 deficiency [E53.8] INVALID FOR* PAD (peripheral artery disease) ([facility]) [I73.9] INVALID FOR* Priority: C Small vessel disease ([facility]) [I99.9] INVALID FOR* DM (diabetes mellitus), type 2 with neurologica*INVALID FOR* Priority: E More... Diabetes mellitus with background retinopathy (*INVALID FOR*07/13/2016 Type 1 diabetes mellitus with mild nonprolifera*INVALID FOR*06/08/2016 Other vitreous opacities - Both Eyes [H43.399] INVALID FOR* Lens replaced by other means - Both Eyes [Z96.1]INVALID FOR*07/13/2016 CVA (cerebral vascular accident) ([facility]) [I63.9] INVALID FOR* Type 2 diabetes, controlled, with neuropathy (H*INVALID FOR* Type 2 diabetes mellitus with diabetic neuropat*INVALID FOR*01/29/2016 Type 2 diabetes mellitus with diabetic polyneur*INVALID FOR* After-cataract obscuring vision [H26.499] INVALID FOR* Pseudophakia of both eyes [Z96.1] INVALID FOR* Hyperopia [H52.00] INVALID FOR* Astigmatism, regular [H52.229] INVALID FOR* Vitreous floaters of both eyes [H43.393] INVALID FOR* Meibomian gland dysfunction (MGD) of upper and *INVALID FOR* NSTEMI (non-ST elevated myocardial infarction) *INVALID FOR* Priority: C More... Coronary artery disease involving [place] ricardo*INVALID FOR* Priority: A More... C. difficile colitis [A04.72] INVALID FOR* Priority: I More... More... Nicotine use disorder, F17.2 [F17.200] INVALID FOR* Priority: B More... Hypotension [I95.9] INVALID FOR*04/14/2018 Priority: C More... Cardiac insufficiency (HCC) [I50.9] INVALID FOR*04/14/2018 Priority: C More... Atelectasis [J98.11] INVALID FOR* Priority: B More... Post-operative pain [G89.18] INVALID FOR* Priority: D More... Depression [F32.9] INVALID FOR* Priority: D More... Transition of care performed with sharing of cl*INVALID FOR* Priority: Moderate More... Bilateral pneumothoraces [J93.9] INVALID FOR* Priority: B More... Discharge planning issues [Z02.9] INVALID FOR* More... Weight gain [R63.5] INVALID FOR* Decubitus ulcer of right heel [L89.619] INVALID FOR* History of sternectomy [Z98.890] INVALID FOR* Hx of CABG [Z95.1] INVALID FOR* Skin wound from surgical incision [T14.8XXA] INVALID FOR* Localized bacterial infection of skin [L08.9, B*INVALID FOR* Prescriptions ordered this encounter Disp Refills Start End AMLODIPINE 5 MG TABLET 60 t* 3 08/11/2018 Route: ORAL Sig: Take 1 tablet by mouth twice daily. Medications Discontinued During This Encounter amLODIPine (NORVASC) 5 mg tablet 90 t* 3 05/25/2018 08/11/2018 Route: ORAL Sig: Take 1 tablet by mouth once daily. Disc: Reason for discontinue is not on file. Encounter Status:Closed by AVERY ESCALANTE DO on 08/14/18 COMP METABOLIC PANEL Collected: 07/26/2018 Status: F Source: GER[place]INE 9:59 AM [facility] REPOSITORY TYPE CODE TESTS RESULT OUT OF REFERENCE UNITS RANGE LAB TP 6.3-8.0 g/dL Protein, Total 7.5 LAB ALB 3.9-4.9 g/dL Albumin 4.4 LAB CA 8.5-10.2 mg/dL Calcium, Total 9.6 LAB TBIL 0.2-1.3 mg/dL Bilirubin, Total 0.6 LAB ALKP 38-113 U/L Alkaline Phosphatase 93 LAB AST 14-40 U/L AST 31 LAB GLU 74-99 mg/dL Glucose 78 Result Comment: The [place] Diabetes Association (ADA) provides guidance for cutoff values for fasting glucose and random glucose. The ADA defines fasting as no caloric intake for at least 8 hours. Fas ting plasma glucose results between 100 to 125 mg/dL indicate increased risk for diabetes (prediabetes). Fasting plasma glucose results greater than or equal to 126 mg/dL meet the criteria for diagnosis of diabetes. In the absence of unequivocal hyperglycemia, results should be confirmed by repeat testing. In a patient with classic symptoms of hyperglycemia or hyperglycemic crisis, random plasma glucose results greater than or equal to 200 mg/dL meet the criteria for diagnosis of diabetes. Reference: Standards of Medical Care in Diabetes 2016, [place] [employer] Association. Diabetes Care. 2016.39(Suppl 1). LAB BUN 9-24 mg/dL BUN 13 LAB CRET 0.73-1.22 mg/dL Creatinine 0.90 LAB NA 136-144 mmol/L Sodium 140 LAB K 3.7-5.1 mmol/L Potassium 4.8 LAB CL 97-105 mmol/L Chloride 98 LAB CO2 22-30 mmol/L CO2 26 LAB AGAP 9-18 mmol/L Anion Gap 16 LAB ALT 10-54 U/L ALT 23 LAB GFRAA eGFR- Amer. >60 LAB GFRNAA . eGFR-All Other Races >60 Result Comment: eGFR (Estimated GFR) Units of measure: mL/min/1.73 meters squared eGFR is derived from the reexpressed MDRD Study equation using the following parameters: serum creatinine, age, gender and race. The creatinine assay has been calibrated to be traceable to IDMS. An eGFR <60 mL/min/1.73m2 for >3 months is consistent with chronic kidney disease. Refer to KDOQI guidelines for clinical interpretation. In patients with unstable renal function, e.g. those with acute kidney injury, the eGFR may not accurately reflect actual GFR. Performed By: #### CMP, HBA1C #### [facility] [address] [place], [place] [address] HEMOGLOBIN A1C Collected: 07/26/2018 Status: F Source: GERALDINE 9:59 AM [facility] REPOSITORY TYPE CODE TESTS RESULT OUT OF REFERENCE UNITS RANGE LAB HGBA1C 4.3-5.6 % High Hemoglobin A1c 6.2 LAB HBA0 mg/dL Est. Average Glucose 131 Result Comment: eAG: (Estimated average glucose) is a calculated value from HgbA1c and is billing customer service representative of the average blood glucose level in the last 2-3 month period. Performed By: #### CMP, HBA1C #### [facility] [employer] [address] [place], [place] [address] PROGRESS Observed: 07/21/2018 Status: COMPLETED Source: GERALDINE 3:11 PM [facility] HNO ID: [id number] Author: Savannah (Suzette Lira Service: (none) Author Type: [employer] Type: Progress Notes Filed: 07/21/2018 3:11 PM Note Text: Radiology Service Progress Note PATIENT NAME: Rick George Jr. DATE OF SERVICE: July 21, 2018 TIME: 3:11 PM PATIENT IDENTITY VERIFICATION COMPLETED USING TWO (2) METHODS: Patient confirmed name verbally and Date of . PATIENT GENDER DATA: Male PATIENT RELEVANT IMPLANT DATA REVIEWED: Yes RADIOLOGY DEPARTMENT: MR; Exam(s) Completed: Head: Routine Brain PERIPHERAL IV DATA: Not applicable SIGNED BY: RT Carlos A July 21, 2018 3:11 PM MRI BRAIN WO IVCON Observed: 07/21/2018 Status: F Source: GER[place]INE 3:10 PM [facility] REPOSITORY * * *Final Report* * * DATE OF EXAM: Jul 21 2018 3:10PM WR [id number] - MRI BRAIN WO IVCON / PROCEDURE REASON: MRI BRAIN * * * * Physician Interpretation * * * * EXAMINATION: MRI BRAIN WO IVCON CLINICAL HISTORY: History of CVA with residual left-sided weakness and frequent falls TECHNIQUE: Routine noncontrast MRI protocol including diffusion images. MQ: [id number] COMPARISON: MRI brain 11/30/2016 RESULT: Acute Change: There is no evidence of an acute intracranial process. Hemorrhage: No evidence of prior parenchymal hemorrhage within constraints of this exam. Mass Lesion/ Mass Effect: No evidence of an intracranial mass or extra-axial fluid collection. No significant mass effect. Chronic Change: Scattered patchy areas of increased T2 and FLAIR signal are present in the kierra and supratentorial white matter which is a nonspecific finding but likely represents mild chronic microvascular ischemia. Remote lacunar infarcts in the left lentiform nucleus and right thalamus, unchanged from prior exam. Parenchyma: No significant volume loss for age. The brain parenchyma is otherwise within normal limits of signal intensity and morphology. Ventricles: Normal caliber and morphology. Skull Base: Hypothalamic and pituitary region are grossly normal. Craniocervical junction is normal. No significant marrow replacement process. Vasculature: Major intracranial arterial structures, and dural venous sinuses show typical flow void, suggesting patency by spin echo criteria. Other: Postsurgical findings of bilateral lens replacement in the orbits. The visualized paranasal sinuses and mastoid air cells are clear. The orbits and extracranial soft tissues are unremarkable. IMPRESSION: No evidence of an acute intracranial process. Remote lacunar infarcts and mild nonspecific white matter changes likely representing chronic microvascular ischemia, similar to prior MRI 11/30/2016. Animal Technician: PSCB Transcribe Date/Time: Jul 21 2018 4:01P Dictated by : BOBBY MENDOZA MD This examination was interpreted and the report reviewed and electronically signed by: BOBBY MENDOZA MD on Jul 21 2018 4:11PM EST [id number] BEDSIDE GLUCOSE Collected: 07/21/2018 Status: F Source: DAVIE 10:20 AM [facility] REPOSITORY Order Comment: ENTERED AND RESULTED MANUALLY DUE TO INVALID PROVIDER MNEMONIC TYPE CODE TESTS RESULT OUT OF RANGE REFERENCE UNITS LAB L501.080 70-110 mg/dL Normal BEDSIDE GLU 76 Result Comment: MANAGEMENT OF PATIENT CARE PER NURSING PROTOCOL Performed By: #### L501.080 #### [facility] [place] [address] CNPN Observed: 07/21/2018 Status: COMPLETED Source: BERNAL 12:00 AM [facility] REPOSITORY Telephone (MIQ) DORISRICK Jayy GILLIS ([id number]) 1960 M Date Time Provider Department 07/21/18 AVERY ESCALANTE MIQ During your visit today, we recorded the following information about you: Lasha Patience PSR 07/21/2018 12:13 PM Addendum Patient is to see Dr Escalante on 08/11. Patient is wondering if he will need additional lab work done before his appointment on the . Patient would like a referral to Endocrinology. Patient would like to see HAKAN Hinojosa at [facility], but was not sure if he should wait until after his appointment or if it could be placed before? Please advise Avery Escalante DO 07/25/2018 4:21 PM Signed Referral placed, labs for diabetes are ordered DO Avery Joshi DO 07/25/2018 4:21 PM Signed Addended by: AVERY ESCALANTE DO on: 07/25/2018 04:21 PM Modules accepted: Orders Allergies As of Date: 07/21/2018 Noted Allergy Reaction LIPITOR (ATORVASTATIN CALCIUM) 01/07/2015 15 - Contraindication- Medical Olsen* Comments: Elevated LFTs and elevated CK level METFORMIN 03/01/2013 6 - Diarrhea Date Reviewed: 06/15/2018 Reviewed by: Lee Sethi LPN - Fully Assessed Reason for Visit: Question [1327] Primary Visit Diagnosis:DM (diabetes mellitus), type 2 with neurological complications (HCC) [E11.49] Order(s):HGB A1C [MJWPT1E] Order #: [id number] FUTURE COMP METABOLIC PANEL [SQCMP] Order #: [id number] FUTURE CONSULT TO ENDOCRINOLOGY [9007] Order #: [id number]: 1 Prescriptions as of 07/21/2018 Sig: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 Denies: Shortness of Breath at Rest, Shortness of Breath with Exertion, Dizziness/Lightheadedness, Fatigue, Heart Arrhythmia/Irregularities, Appetite - Special Diet - recommended 1800 calorie low fat, no sodium, diabetic diet; doctor at told him no diet restrictions. - Pain Is Patient Pain Free?: No Pain Location: chest Pain Level: 4/10 Risk Factor Assessment - Chief Complaint Chief Complaint: Patient is a 58 yr old male patient who was originally seen by Dr. Reid Ring here at [facility] for NSTEMI and subsequently was transfered to [facility] for CABG. Patient is not pleased with provider/[facility] and would like to resume his care with Dr. Ring as following statement processor. - Vital Signs Temperature: 98.7 F Respiratory Rate: 16 Pulse Ox: 97 Blood Pressure: 118/64 Nailbeds:: pink - Pulse Pulse Rate: 71 Pulse Rhythm: Regular - Hypertension How long have you been treated?: 6 On medication(s)?: yes Blood Pressure Sitting - Left Arm: 118/64 - started on BP meds w/DM Type II to help w/kidney function. 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 - Risk Stratification Risk Guidelines: Lowest Risk: Risk Factor for Dyslipidemia, Risk Factor for Diabetes, Risk Factor for Hypertension, Risk Factor for Sedentary Lifestyle, Risk Factor for Depression, Moderate Risk: Risk Factor for Smoking, Risk Factor for Obesity - For Smoking Smoking Risk Guidelines: Smoking Low Risk: None or quit greater than 6 months ago. Smoking Moderate Risk: Smoker or quit 6 months or less ago. Smoking High Risk: Smoker - For Dyslipidemia Dyslipidemia Risk Guidelines: Low Risk: Moderate Risk: High Risk: 15-25% fat 25.1-29% fat >/= 30% fat. <7% sat fat 7-9% sat fat >9% sat fat. <150 mg chol 150-299 mg chol >/= 300 mg chol. LDL <100 LDL 100-129 LDL >/= 130. Chol/HDL ratio <5.0 Chol/HDL ratio 5.0-6.0 Chol/HDL ratio >6.0. Triglycerides <100 Triglycerides 100-149 Triglycerides >/= 150 - For Diabetes Mellitus Diabetes Risk Guidelines: Diabetes Low Risk: HgA1c <6.5% and/or FBG <120. Diabetes Moderate Risk: HgA1c 6.6-7.9% and/or FBG 120- 180. Diabetes High Risk: HgA1c >/= 8% and/or FBG >180 - For Obesity/Overweight Obesity/Overweight Risk Guidelines: Obesity Low Risk: BMI <25.0. Obesity Moderate Risk: BMI 25-29.9. Obesity High Risk: BMI >/= 30.0 - For Hypertension Hypertension Risk Guidelines: Hypertension Low Risk: Systolic <120 and Diastolic <80. Hypertension Moderate Risk: Systolic 120-139 and Diastolic 80-89. Hypertension High Risk: Systolic >/= 140 and Diastolic >/= 90 - For Sedentary Lifestyle Sedentary Lifestyle Risk Guidelines: Sedentary Lifestyle Low Risk: >/= 1,500 kcal/week. Sedentary Lifestyle Moderate Risk: 700-1,499 kcal/week. Sedentary Lifestyle High Risk: < 700 kcal/week - For Depression Depression Risk Guidelines: Depression Low Risk: Not clinically depressed. Depression Moderate Risk: Mildly depressed. 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 Exercise plan approved as documented. Treatment plan and goals support patient needs/abilities. Continue with current plan. I certify the patient demonstrates improvement and remains willing and capable of participation. the patient continues to benefit from cardiac rehab services/training. The patient may continue at current intensity, endurance and modality and progress per protocol. 07/06/182020 <Electronically signed by Reid Ring MD> Cosigner Signature: Date Reid Ring MD CC: Signed BASIC METABOLIC PANL Collected: 06/28/2018 Status: F Source: [facility] 10:34 AM [facility] REPOSITORY TYPE CODE TESTS RESULT OUT OF REFERENCE UNITS RANGE LAB GLU 74-99 mg/dL High Glucose 101 Result Comment: The [place] [employer] (ADA) provides guidance for cutoff values for fasting glucose and random glucose. The ADA defines fasting as no caloric intake for at least 8 hours. Fas ting plasma glucose results between 100 to 125 mg/dL indicate increased risk for diabetes (prediabetes). Fasting plasma glucose results greater than or equal to 126 mg/dL meet the criteria for diagnosis of diabetes. In the absence of unequivocal hyperglycemia, results should be confirmed by repeat testing. In a patient with classic symptoms of hyperglycemia or hyperglycemic crisis, random plasma glucose results greater than or equal to 200 mg/dL meet the criteria for diagnosis of diabetes. Reference: Standards of Medical Care in Diabetes 2016, [place] [employer] Association. Diabetes Care. 2016.39(Suppl 1). LAB BUN 9-24 mg/dL BUN 11 LAB CRET 0.73-1.22 mg/dL Creatinine 0.95 LAB NA 136-144 mmol/L Sodium 139 LAB K 3.7-5.1 mmol/L Potassium High 5.2 LAB CL 97-105 mmol/L Chloride 100 LAB CO2 22-30 mmol/L CO2 25 LAB AGAP 9-18 mmol/L Anion Gap 14 LAB CA 8.5-10.2 mg/dL Calcium, Total 9.3 LAB GFRAA eGFR- Amer. >60 LAB GFRNAA . eGFR-All Other Races >60 Result Comment: eGFR (Estimated GFR) Units of measure: mL/min/1.73 meters squared eGFR is derived from the reexpressed MDRD Study equation using the following parameters: serum creatinine, age, gender and race. The creatinine assay has been calibrated to be traceable to IDMS. An eGFR <60 mL/min/1.73m2 for >3 months is consistent with chronic kidney disease. Refer to KDOQI guidelines for clinical interpretation. In patients with unstable renal function, e.g. those with acute kidney injury, the eGFR may not accurately reflect actual GFR. Performed By: #### BMP #### [facility] [address], [place] [address] PROGRESS Observed: 06/23/2018 Status: COMPLETED Source: [place] 10:50 AM [facility] [place] REPOSITORY HNO ID: [id number] Author: Catracho Mc (Lin) Service: (none) Author Type: Registered Nurse Type: Progress Notes Filed: 06/23/2018 10:55 AM Note Text: PRIMARY CARE COORDINATION FOLLOW-UP NOTE Provider Action/FYI Spk to Pt notified prescription for Lasix sent to [facility] in [place] as requested. Patient identified by name and date of . YES Spoke to patient Signature Jesusita Hayden RN June 23, 2018 PROGRESS Observed: 06/23/2018 Status: COMPLETED Source: [place] 10:03 AM [facility] REPOSITORY HNO ID: [id number] Author: Avery Escalante Service: (none) Author Type: Physician Type: Progress Notes Filed: 06/23/2018 10:55 AM Note Text: The following approved medication requests have been transmitted electronically. Signed Prescriptions Disp Refills furosemide (LASIX) 20 mg tablet 30 tablet 3 Sig: Take 1 tablet by mouth once daily. LESLIE: No Avery Escalante DO PROGRESS Observed: 06/23/2018 Status: COMPLETED Source: [place] 9:43 AM [facility] REPOSITORY HNO ID: [id number] Author: Catracho LernerRn) Service: (none) Author Type: Registered Nurse Type: Progress Notes Filed: 06/23/2018 10:55 AM Note Text: PRIMARY CARE COORDINATION FOLLOW-UP NOTE Provider Action/FYI Spk with Pt notified per Dr. Escalante to please take 2nd dose of 20 mg of Lasix for 3 days (take by 2 pm). Let Key Holder know if any further weight or edema concerns. Pt verbalized understanding. 2. Pt noted he is out of Lasix, requested for refill Please be sent to [facility] in [place]. Patient identified by name and date of . YES Spoke to patient Signature Jesusita Hayden RN June 23, 2018 PROGRESS Observed: 06/23/2018 Status: COMPLETED Source: [place] 6:44 AM [facility] REPOSITORY HNO ID: [id number] Author: Avery Escalante Service: (none) Author Type: Physician Type: Progress Notes Filed: 06/23/2018 10:55 AM Note Text: Please have him take 2nd dose of 20 mg of Lasix for 3 days (take by 2 pm). Let Key Holder know if any further weight or edema concerns /Avery Escalante DO PROGRESS Observed: 06/22/2018 Status: COMPLETED Source: [place] 5:13 PM [facility] REPOSITORY HNO ID: [id number] Author: Catracho Mc (Rn) Service: (none) Author Type: Registered Nurse Type: Progress Notes Filed: 06/23/2018 10:55 AM Note Text: PRIMARY CARE COORDINATION INTAKE Provider Action/FYI: 1. Call from Pt who reports wt gain of 6 lbs, denies CP or Sob, or cough, has bilateral leg and ankle swelling. Pt is taking Lasix 20 mg po daily 2. BP 117/62 , Fbs 132, PP BS 175, (329 Labor day only) 3. Pt reports Lisinopril was held by Dr. Escamilla 06/08/18 due to elevated K level 4. Order for Cardiac rehab printed and left for Pt to orange picker at [facility], Pt noted plans to have Cardiac rehab at [facility] Patient identified for Primary Care Coordination from: PCP Referral Active Goals - Current status as of 06/22/2018 at 5:14 PM Most Recent - Address all appropriate HM and disease care gaps - Annual BMP - Annual foot exam - Annual microalbumin - Annual retina exam - Blood Pressure < 130/80 110/64 (06/15/2018) - Confirm medication adherence of all prescribed medications and uses them correctly - HBA1C drawn quarterly - Hemoglobin A1C < 7 5.7 (04/04/2018) - LDL at or below 100 mg/dL or on a high statin - Tobacco cessation - Understands and follows DASH diet Improving (06/22/2018) - Weight mgmt/activity Health Maintenance Topics with due status: Overdue Topic Date Due DILATED RETINAL EXAM 02/03/2018 Health Maintenance Topics with due status: Due On Topic Date Due INFLUENZA 06/17/2018 Care Coordination: General Care Coordination (since 03/24/2018) None Social Determinants: Education (since 03/24/2018) None Health Literacy (since 03/24/2018) None Resource Strain (since 03/24/2018) None Depression (since 03/24/2018) None Diet (since 03/24/2018) None Physical Activity (since 03/24/2018) None Tobacco Use (since 03/24/2018) None Alcohol Use (since 03/24/2018) None Social Connection and Isolation (since 03/24/2018) None Intimate Partner Violence (since 03/24/2018) None Stress (since 03/24/2018) None Food Insecurity (since 03/24/2018) None Transportation Needs (since 03/24/2018) None Activities of Daily Living: Patients can perform the following activities without help: (since 03/24/2018) None Instrumental activities of daily living (since 03/24/2018) None Fall Risk: Fall Risk (since 03/24/2018) None Jesusita Hayden RN CNPTOUTREA Observed: 06/22/2018 Status: COMPLETED Source: [place] 12:00 AM [facility] REPOSITORY Patient Outreach (FAMPWS) RICK GEORGE JR. ([id number]) 1960 M Date Time Provider Department 06/22/18 [facility] (RN) [facility] During your visit today, we recorded the following information about you: Jesusita Hayden RN 06/23/2018 10:55 AM Signed PRIMARY CARE COORDINATION INTAKE Provider Action/FYI: 1. Call from Pt who reports wt gain of 6 lbs, denies CP or Sob, or cough, has bilateral leg and ankle swelling. Pt is taking Lasix 20 mg po daily 2. BP 117/62 , Fbs 132, PP BS 175, (329 Labor day only) 3. Pt reports Lisinopril was held by Dr. Escamilla 06/08/18 due to elevated K level 4. Order for Cardiac rehab printed and left for Pt to orange picker at [facility], Pt noted plans to have Cardiac rehab at [facility] Patient identified for Primary Care Coordination from: PCP Referral Active Goals - Current status as of 06/22/2018 at 5:14 PM Most Recent - Address all appropriate HM and disease care gaps - Annual BMP - Annual foot exam - Annual microalbumin - Annual retina exam - Blood Pressure < 130/80 110/64 (06/15/2018) - Confirm medication adherence of all prescribed medications and uses them correctly - HBA1C drawn quarterly - Hemoglobin A1C < 7 5.7 (04/04/2018) - LDL at or below 100 mg/dL or on a high statin - Tobacco cessation - Understands and follows DASH diet Improving (06/22/2018) - Weight mgmt/activity Health Maintenance Topics with due status: Overdue Topic Date Due DILATED RETINAL EXAM 02/03/2018 Health Maintenance Topics with due status: Due On Topic Date Due INFLUENZA 06/17/2018 Care Coordination: General Care Coordination (since 03/24/2018) None Social Determinants: Education (since 03/24/2018) None Health Literacy (since 03/24/2018) None Resource Strain (since 03/24/2018) None Depression (since 03/24/2018) None Diet (since 03/24/2018) None Physical Activity (since 03/24/2018) None Tobacco Use (since 03/24/2018) None Alcohol Use (since 03/24/2018) None Social Connection and Isolation (since 03/24/2018) None Intimate Partner Violence (since 03/24/2018) None Stress (since 03/24/2018) None Food Insecurity (since 03/24/2018) None Transportation Needs (since 03/24/2018) None Activities of Daily Living: Patients can perform the following activities without help: (since 03/24/2018) None Instrumental activities of daily living (since 03/24/2018) None Fall Risk: Fall Risk (since 03/24/2018) None LIN Roche DO 06/23/2018 10:55 AM Signed Please have him take 2nd dose of 20 mg of Lasix for 3 days (take by 2 pm). Let Key Holder know if any further weight or edema concerns /DO Jesusita Joshi RN 06/23/2018 10:55 AM Signed PRIMARY CARE COORDINATION FOLLOW-UP NOTE Provider Action/FYI Spk with Pt notified per Dr. Escalante to please take 2nd dose of 20 mg of Lasix for 3 days (take by 2 pm). Let Key Holder know if any further weight or edema concerns. Pt verbalized understanding. 2. Pt noted he is out of Lasix, requested for refill Please be sent to [facility] in [place]. Patient identified by name and date of . YES Spoke to patient Signature Jesusita Hayden RN June 23, 2018 Avery Escalante DO 06/23/2018 10:55 AM Signed The following approved medication requests have been transmitted electronically. Signed Prescriptions Disp Refills furosemide (LASIX) 20 mg tablet 30 tablet 3 Sig: Take 1 tablet by mouth once daily. LESLIE: No DO Jesusita Joshi RN 06/23/2018 10:55 AM Signed PRIMARY CARE COORDINATION FOLLOW-UP NOTE Provider Action/FYI Spk to Pt notified prescription for Lasix sent to [facility] in [place] as requested. Patient identified by name and date of . 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] Cmt: Symptom Update Reason For Visit History Recorded Visit Diagnosis:Weight gain [R63.5] Order(s):furosemide (LASIX) 20 mg tabletTake 1 tablet by mouth once daily.Disp: 30 tabletRfl: 3 Prescriptions as of 06/22/2018 Sig: FUROSEMIDE 20 MG TABLET Take 1 tablet by mouth once d* ACETAMINOPHEN 325 MG TABLET Take 2 tablets by mouth every* SANTYL 250 UNIT/GRAM TOPICAL * Apply once daily AMLODIPINE 5 MG TABLET Take 1 tablet by mouth once d* LISINOPRIL 2.5 MG TABLET Take 1 tablet by mouth once d* INSULIN LISPRO (U-100) 100 UN* INJECT 12 TO 20 UNITS SUBCUTA* INSULIN GLARGINE (U-100) 100 * INJECT 20 UNITS SUBCUTANEOUSL* PEN NEEDLE, DIABETIC 31 GAUGE* USE TO GIVE INSULIN INJECTION* BASAGLAR KWIKPEN U-100 INSULI* INJECT 20 UNITS SUBCUTANEOUSL* HUMALOG KWIKPEN (U-100) INSUL* INJECT 12 TO 20 UNITS SUBCUTA* COMPOUNDED PRESCRIPTION Referral: wound clinic, [place]* ROSUVASTATIN 10 MG TABLET Take 1 tablet by mouth every * METOPROLOL TARTRATE 25 MG TAB* Take 0.5 tablets by mouth abdiaziz* ASPIRIN 81 MG CHEWABLE TABLET 2 tablets by ORAL/FEEDING TUB* GABAPENTIN 300 MG CAPSULE Take 3 capsules by mouth ever* SILVER SULFADIAZINE 1 % TOPIC* Apply 1 application to affect* NORTRIPTYLINE 50 MG CAPSULE TAKE ONE CAPSULE BY MOUTH ONC* CHOLECALCIFEROL (VITAMIN D3) * Take 1 capsule by mouth once * CETIRIZINE 10 MG TABLET TAKE ONE TABLET BY MOUTH ONCE* TADALAFIL 20 MG TABLET Take 1 tablet by mouth once d* BLOOD SUGAR DIAGNOSTIC STRIPS Check blood glucose three georgie* FREESTYLE LANCETS 28 GAUGE USE DIRECTED 3 TO 4 TIMES * BLOOD-GLUCOSE METER KIT Freestyle LITE Meter Kit - Dx* Problem List As Of Date 06/22/2018 Noted Resolved Diabetes 1.5, 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 Hyperlipidemia [E78.5] INVALID FOR* Priority: E More... Diabetes type 2, controlled [E11.9] INVALID FOR* Lower back pain [M54.5] INVALID FOR* Priority: D More... Hearing loss [H91.90] INVALID FOR* Dizziness [R42] INVALID FOR* Other musculoskeletal symptoms referable to mixon*INVALID FOR* Hereditary and idiopathic peripheral neuropathy*INVALID FOR* Vitamin B12 deficiency [E53.8] INVALID FOR* PAD (peripheral artery disease) ([facility]) [I73.9] INVALID FOR* Priority: C Small vessel disease ([facility]) [I99.9] INVALID FOR* DM (diabetes mellitus), type 2 with neurologica*INVALID FOR* Priority: E More... Diabetes mellitus with background retinopathy (*INVALID FOR*07/13/2016 Type 1 diabetes mellitus with mild nonprolifera*INVALID FOR*06/08/2016 Other vitreous opacities - Both Eyes [H43.399] INVALID FOR* Lens replaced by other means - Both Eyes [Z96.1]INVALID FOR*07/13/2016 CVA (cerebral vascular accident) ([facility]) [I63.9] INVALID FOR* Type 2 diabetes, controlled, with neuropathy (H*INVALID FOR* Type 2 diabetes mellitus with diabetic neuropat*INVALID FOR*01/29/2016 Type 2 diabetes mellitus with diabetic polyneur*INVALID FOR* After-cataract obscuring vision [H26.499] INVALID FOR* Pseudophakia of both eyes [Z96.1] INVALID FOR* Hyperopia [H52.00] INVALID FOR* Astigmatism, regular [H52.229] INVALID FOR* Vitreous floaters of both eyes [H43.393] INVALID FOR* Meibomian gland dysfunction (MGD) of upper and *INVALID FOR* NSTEMI (non-ST elevated myocardial infarction) *INVALID FOR* Priority: C More... Coronary artery disease involving [place] ricardo*INVALID FOR* Priority: A More... C. difficile colitis [A04.72] INVALID FOR* Priority: I More... More... Nicotine use disorder, F17.2 [F17.200] INVALID FOR* Priority: B More... Hypotension [I95.9] INVALID FOR*04/14/2018 Priority: C More... Cardiac insufficiency (HCC) [I50.9] INVALID FOR*04/14/2018 Priority: C More... Atelectasis [J98.11] INVALID FOR* Priority: B More... Post-operative pain [G89.18] INVALID FOR* Priority: D More... Depression [F32.9] INVALID FOR* Priority: D More... Transition of care performed with sharing of cl*INVALID FOR* Priority: Moderate More... Bilateral pneumothoraces [J93.9] INVALID FOR* Priority: B More... Discharge planning issues [Z02.9] INVALID FOR* More... Weight gain [R63.5] INVALID FOR* Decubitus ulcer of right heel [L89.619] INVALID FOR* History of sternectomy [Z98.890] INVALID FOR* Hx of CABG [Z95.1] INVALID FOR* Skin wound from surgical incision [T14.8XXA] INVALID FOR* Localized bacterial infection of skin [L08.9, B*INVALID FOR* Prescriptions ordered this encounter Disp Refills Start End FUROSEMIDE 20 MG TABLET 30 t* 3 06/23/2018 Route: ORAL Sig: Take 1 tablet by mouth once daily. Medications Discontinued During This Encounter furosemide (LASIX) 20 mg tablet 7 ta* 0 05/15/2018 06/23/2018 Cmt: Please consider 90 day supplies to promote better adherence Route: ORAL Sig: TAKE 1 TABLET BY MOUTH ONCE DAILY Disc: Reason for discontinue is not on file. Encounter Status:Closed by JESUSITA HAYDEN on 06/23/18 PROGRESS Observed: 06/16/2018 Status: COMPLETED Source: [place] 9:52 AM [facility] REPOSITORY HNO ID: [id number] Author: Catracho Mc (Rn) Service: (none) Author Type: Registered Nurse Type: Progress Notes Filed: 06/16/2018 1:09 PM Note Text: PRIMARY CARE COORDINATION FOLLOW-UP NOTE Provider Action/FYI Call to Pt left a vm to notify the order for Cardiac rehab order was placed by Dr. Escamilla on 05/25/18, provided phone number for scheduling if he chooses [facility]. Patient identified by name and date of . YES Signature Jesusita Hayden RN June 16, 2018 PROGRESS Observed: 06/15/2018 Status: COMPLETED Source: [place] 2:21 PM [facility] REPOSITORY HNO ID: [id number] Author: Catracho LernerRn) Service: (none) Author Type: Registered Nurse Type: Progress Notes Filed: 06/16/2018 1:09 PM Note Text: PRIMARY CARE COORDINATION FOLLOW-UP NOTE The Pt would like to verify if he can be released to start Cardiac Rehab, if so would you please place an order. Patient identified by name and date of . YES Thank You, Signature Jesusita Hayden RN June 15, 2018 PROGRESS Observed: 06/15/2018 Status: COMPLETED Source: [place] 1:34 PM [facility] REPOSITORY HNO ID: [id number] Author: Jos eJuan Stanton Service: (none) Author Type: Nurse Practitioner Type: Progress Notes Filed: 06/15/2018 3:38 PM Note Text: This note was created using thereNowriter. Subjective Rick George Jr. is a 58 year old male who presents with complaints of right lower leg wound check and back pain. Patient reports moving large heavy bags, since that time he has experienced back pain L>R. Pt is currently taking Acetaminophen at home for pain control. Pt is 9 weeks s/p CABG, has not been released to cardiac rehab. Reports right LE SVG site with drainage on manipulation- this has resolved. Pt denies SOB, CP, urinary changes, and dizziness, N/V, diarrhea. Review of Systems Constitutional: Negative for activity change, appetite change, chills, diaphoresis, fatigue, fever and unexpected weight change. Respiratory: Negative for apnea, cough, choking, chest tightness, shortness of breath, wheezing and stridor. Cardiovascular: Negative for chest pain and palpitations. Gastrointestinal: Negative for abdominal distention, abdominal pain, anal bleeding, blood in stool, constipation, diarrhea, nausea, rectal pain and vomiting. Musculoskeletal: Positive for back pain and myalgias. Negative for arthralgias, gait problem, joint swelling, neck pain and neck stiffness. Skin: Positive for wound. Negative for color change, pallor and rash. Neurological: Negative for dizziness, tremors, seizures, syncope, facial asymmetry, speech difficulty, weakness, light-headedness, numbness and headaches. Objective BP 110/64 Pulse 88 Resp 16 Wt 91.6 kg (202 lb) BMI 28.98 kg/m? Physical Exam Constitutional: He appears well-nourished. HENT: Head: Normocephalic and atraumatic. Eyes: Pupils are equal, round, and reactive to light. Conjunctivae, EOM and lids are normal. Neck: Trachea normal, normal range of motion and full passive range of motion without pain. Cardiovascular: Regular rhythm and normal heart sounds. Exam reveals no gallop and no distant heart sounds. No murmur heard. Pulses: Carotid pulses are 2+ on the right side, and 2+ on the left side. Radial pulses are 2+ on the right side, and 2+ on the left side. Popliteal pulses are 2+ on the right side. Dorsalis pedis pulses are 2+ on the right side, and 2+ on the left side. Posterior tibial pulses are 2+ on the right side, and 2+ on the left side. Pulmonary/Chest: Effort normal and breath sounds normal. Musculoskeletal: Arms: Right lower leg +1 pitting edema with tenderness on palpation. No redness noted on examination. Neurological: He is alert. Skin: Skin is warm and dry. No rash noted. ASSESSMENT/PLAN: 1. Acute left-sided thoracic back pain - ICD9: 724.1, ICD10: M54.6 (primary diagnosis) Lumbosacral sprain - NSAIDS- see orders - avoid lifting anything >10lbs until cleared by sx 2. Diarrhea, unspecified type - ICD9: 787.91, ICD10: R19.7 - resolved 3. Hx of CABG - ICD9: V45.81, ICD10: Z95.1 - avoid lifting, pushing or pulling anything >10 lbs - continue wound care - do not manipulate SVG sites - f/u with cards and CTS 4. Delayed surgical wound healing, sequela - ICD9: 909.3, ICD10: T81.89XS As above Jose Juan Stanton APRN.CNP CNOV Observed: 06/15/2018 Status: COMPLETED Source: [place] 1:20 PM [facility] REPOSITORY Office Visit (FAMPWS) RICK GEORGE JR. ([id number]) 1960 M Date Time Provider Department 06/15/18 1:20 PM JOSE JUAN STANTON) [facility] During your visit today, we recorded the following information about you: Pulse Respiration Blood pressure Weight 88/minute 16/minute 110/64 91.6 kg Jose Juan Stanton APRN.CNP 06/15/2018 3:38 PM Signed This note was created using thereNowriter. Subjective Rick George Jr. is a 58 year old male who presents with complaints of right lower leg wound check and back pain. Patient reports moving large heavy bags, since that time he has experienced back pain L>R. Pt is currently taking Acetaminophen at home for pain control. Pt is 9 weeks s/p CABG, has not been released to cardiac rehab. Reports right LE SVG site with drainage on manipulation- this has resolved. Pt denies SOB, CP, urinary changes, and dizziness, N/V, diarrhea. Review of Systems Constitutional: Negative for activity change, appetite change, chills, diaphoresis, fatigue, fever and unexpected weight change. Respiratory: Negative for apnea, cough, choking, chest tightness, shortness of breath, wheezing and stridor. Cardiovascular: Negative for chest pain and palpitations. Gastrointestinal: Negative for abdominal distention, abdominal pain, anal bleeding, blood in stool, constipation, diarrhea, nausea, rectal pain and vomiting. Musculoskeletal: Positive for back pain and myalgias. Negative for arthralgias, gait problem, joint swelling, neck pain and neck stiffness. Skin: Positive for wound. Negative for color change, pallor and rash. Neurological: Negative for dizziness, tremors, seizures, syncope, facial asymmetry, speech difficulty, weakness, light-headedness, numbness and headaches. Objective BP 110/64 Pulse 88 Resp 16 Wt 91.6 kg (202 lb) BMI 28.98 kg/m? Physical Exam Constitutional: He appears well-nourished. HENT: Head: Normocephalic and atraumatic. Eyes: Pupils are equal, round, and reactive to light. Conjunctivae, EOM and lids are normal. Neck: Trachea normal, normal range of motion and full passive range of motion without pain. Cardiovascular: Regular rhythm and normal heart sounds. Exam reveals no gallop and no distant heart sounds. No murmur heard. Pulses: Carotid pulses are 2+ on the right side, and 2+ on the left side. Radial pulses are 2+ on the right side, and 2+ on the left side. Popliteal pulses are 2+ on the right side. Dorsalis pedis pulses are 2+ on the right side, and 2+ on the left side. Posterior tibial pulses are 2+ on the right side, and 2+ on the left side. Pulmonary/Chest: Effort normal and breath sounds normal. Musculoskeletal: Arms: Right lower leg +1 pitting edema with tenderness on palpation. No redness noted on examination. Neurological: He is alert. Skin: Skin is warm and dry. No rash noted. ASSESSMENT/PLAN: 1. Acute left-sided thoracic back pain - ICD9: 724.1, ICD10: M54.6 (primary diagnosis) Lumbosacral sprain - NSAIDS- see orders - avoid lifting anything >10lbs until cleared by sx 2. Diarrhea, unspecified type - ICD9: 787.91, ICD10: R19.7 - resolved 3. Hx of CABG - ICD9: V45.81, ICD10: Z95.1 - avoid lifting, pushing or pulling anything >10 lbs - continue wound care - do not manipulate SVG sites - f/u with cards and CTS 4. Delayed surgical wound healing, sequela - ICD9: 909.3, ICD10: T81.89XS As above Jose Juan Stanton APRN.TRACK LABORER Referring Provider: SELF [[id number]] Allergies As of Date: 06/15/2018 Noted Allergy Reaction LIPITOR (ATORVASTATIN CALCIUM) 01/07/2015 15 - Contraindication- Medical Olsen* Comments: Elevated LFTs and elevated CK level METFORMIN 03/01/2013 6 - Diarrhea Date Reviewed: 06/15/2018 Reviewed by: Lee Sethi LPN - Fully Assessed Reason for Visit: Back Pain [12] Cmt: resolved per pt after lifting 50lb bag Diarrhea [35] Cmt: resolved, was recently on antibiotic from [facility] Reason For Visit History Recorded Primary Visit Diagnosis:Acute left-sided thoracic back pain [M54.6] Other Visit Diagnoses:Diarrhea, unspecified type [R19.7] Hx of CABG [Z95.1] Delayed surgical wound healing, sequela [T81.89XS] Order(s):acetaminophen (TYLENOL) 325 mg tabletTake 2 tablets by mouth every 6 hours as needed for Pain.Disp: 90 tabletRfl: 0 Prescriptions as of 06/15/2018 Sig: ACETAMINOPHEN 325 MG TABLET Take 2 tablets by mouth every* SANTYL 250 UNIT/GRAM TOPICAL * Apply once daily AMLODIPINE 5 MG TABLET Take 1 tablet by mouth once d* LISINOPRIL 2.5 MG TABLET Take 1 tablet by mouth once d* INSULIN LISPRO (U-100) 100 UN* INJECT 12 TO 20 UNITS SUBCUTA* INSULIN GLARGINE (U-100) 100 * INJECT 20 UNITS SUBCUTANEOUSL* PEN NEEDLE, DIABETIC 31 GAUGE* USE TO GIVE INSULIN INJECTION* BASAGLAR KWIKPEN U-100 INSULI* INJECT 20 UNITS SUBCUTANEOUSL* HUMALOG KWIKPEN (U-100) INSUL* INJECT 12 TO 20 UNITS SUBCUTA* FUROSEMIDE 20 MG TABLET TAKE 1 TABLET BY MOUTH ONCE D* COMPOUNDED PRESCRIPTION Referral: wound clinic, [place]* ROSUVASTATIN 10 MG TABLET Take 1 tablet by mouth every * METOPROLOL TARTRATE 25 MG TAB* Take 0.5 tablets by mouth abdiaziz* ASPIRIN 81 MG CHEWABLE TABLET 2 tablets by ORAL/FEEDING TUB* GABAPENTIN 300 MG CAPSULE Take 3 capsules by mouth ever* SILVER SULFADIAZINE 1 % TOPIC* Apply 1 application to affect* NORTRIPTYLINE 50 MG CAPSULE TAKE ONE CAPSULE BY MOUTH ONC* CHOLECALCIFEROL (VITAMIN D3) * Take 1 capsule by mouth once * CETIRIZINE 10 MG TABLET TAKE ONE TABLET BY MOUTH ONCE* TADALAFIL 20 MG TABLET Take 1 tablet by mouth once d* BLOOD SUGAR DIAGNOSTIC STRIPS Check blood glucose three georgie* FREESTYLE LANCETS 28 GAUGE USE DIRECTED 3 TO 4 TIMES * BLOOD-GLUCOSE METER KIT Freestyle LITE Meter Kit - Dx* Problem List As Of Date 06/15/2018 Noted Resolved Diabetes 1.5, 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 Hyperlipidemia [E78.5] INVALID FOR* Priority: E More... Diabetes type 2, controlled [E11.9] INVALID FOR* Lower back pain [M54.5] INVALID FOR* Priority: D More... Hearing loss [H91.90] INVALID FOR* Dizziness [R42] INVALID FOR* Other musculoskeletal symptoms referable to mixon*INVALID FOR* Hereditary and idiopathic peripheral neuropathy*INVALID FOR* Vitamin B12 deficiency [E53.8] INVALID FOR* PAD (peripheral artery disease) ([facility]) [I73.9] INVALID FOR* Priority: C Small vessel disease ([facility]) [I99.9] INVALID FOR* DM (diabetes mellitus), type 2 with neurologica*INVALID FOR* Priority: E More... Diabetes mellitus with background retinopathy (*INVALID FOR*07/13/2016 Type 1 diabetes mellitus with mild nonprolifera*INVALID FOR*06/08/2016 Other vitreous opacities - Both Eyes [H43.399] INVALID FOR* Lens replaced by other means - Both Eyes [Z96.1]INVALID FOR*07/13/2016 CVA (cerebral vascular accident) ([facility]) [I63.9] INVALID FOR* Type 2 diabetes, controlled, with neuropathy (H*INVALID FOR* Type 2 diabetes mellitus with diabetic neuropat*INVALID FOR*01/29/2016 Type 2 diabetes mellitus with diabetic polyneur*INVALID FOR* After-cataract obscuring vision [H26.499] INVALID FOR* Pseudophakia of both eyes [Z96.1] INVALID FOR* Hyperopia [H52.00] INVALID FOR* Astigmatism, regular [H52.229] INVALID FOR* Vitreous floaters of both eyes [H43.393] INVALID FOR* Meibomian gland dysfunction (MGD) of upper and *INVALID FOR* NSTEMI (non-ST elevated myocardial infarction) *INVALID FOR* Priority: C More... Coronary artery disease involving [place]*INVALID FOR* Priority: A More... C. difficile colitis [A04.72] INVALID FOR* Priority: I More... More... Nicotine use disorder, F17.2 [F17.200] INVALID FOR* Priority: B More... Hypotension [I95.9] INVALID FOR*04/14/2018 Priority: C More... Cardiac insufficiency (HCC) [I50.9] INVALID FOR*04/14/2018 Priority: C More... Atelectasis [J98.11] INVALID FOR* Priority: B More... Post-operative pain [G89.18] INVALID FOR* Priority: D More... Depression [F32.9] INVALID FOR* Priority: D More... Transition of care performed with sharing of cl*INVALID FOR* Priority: Moderate More... Bilateral pneumothoraces [J93.9] INVALID FOR* Priority: B More... Discharge planning issues [Z02.9] INVALID FOR* More... Weight gain [R63.5] INVALID FOR* Decubitus ulcer of right heel [L89.619] INVALID FOR* History of sternectomy [Z98.890] INVALID FOR* Hx of CABG [Z95.1] INVALID FOR* Skin wound from surgical incision [T14.8XXA] INVALID FOR* Localized bacterial infection of skin [L08.9, B*INVALID FOR* Prescriptions ordered this encounter Disp Refills Start End ACETAMINOPHEN 325 MG TABLET 90 t* 0 06/15/2018 Route: ORAL Sig: Take 2 tablets by mouth every 6 hours as needed for Pain. Medications Discontinued During This Encounter baclofen (LIORESAL) 20 mg tablet 07/06/2016 06/15/2018 Class: Historical Med Route: ORAL Sig: Take 20 mg by mouth three times daily. Disc: Reason for discontinue is not on file. Encounter Status:Closed by JOSE JUAN STANTON CNP on 06/15/18 JAZLYN Observed: 06/15/2018 Status: COMPLETED Source: [place] 12:00 AM [facility] REPOSITORY Patient Outreach (FAMPWS) RICK GEORGE JR. ([id number]) 1960 M Date Time Provider Department 06/15/18 CATRACHO MACKENZIE) FAMPWS During your visit today, we recorded the following information about you: Jesusita Hayden RN 06/16/2018 1:09 PM Signed PRIMARY CARE COORDINATION FOLLOW-UP NOTE The Pt would like to verify if he can be released to start Cardiac Rehab, if so would you please place an order. Patient identified by name and date of . YES Thank You, Signature Jesusita Hayden RN June 15, 2018 Jesusita Hayden RN 06/16/2018 1:09 PM Signed PRIMARY CARE COORDINATION FOLLOW-UP NOTE Provider Action/FYI Call to Pt left a vm to notify the order for Cardiac rehab order was placed by Dr. Escamilla on 05/25/18, provided phone number for scheduling if he chooses [facility]. Patient identified by name and date of . 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] Cmt: Cardiac Rehab Reason For Visit History Recorded Prescriptions as of 06/15/2018 Sig: ACETAMINOPHEN 325 MG TABLET Take 2 tablets by mouth every* SANTYL 250 UNIT/GRAM TOPICAL * Apply once daily AMLODIPINE 5 MG TABLET Take 1 tablet by mouth once d* LISINOPRIL 2.5 MG TABLET Take 1 tablet by mouth once d* INSULIN LISPRO (U-100) 100 UN* INJECT 12 TO 20 UNITS SUBCUTA* INSULIN GLARGINE (U-100) 100 * INJECT 20 UNITS SUBCUTANEOUSL* PEN NEEDLE, DIABETIC 31 GAUGE* USE TO GIVE INSULIN INJECTION* BASAGLAR KWIKPEN U-100 INSULI* INJECT 20 UNITS SUBCUTANEOUSL* HUMALOG KWIKPEN (U-100) INSUL* INJECT 12 TO 20 UNITS SUBCUTA* FUROSEMIDE 20 MG TABLET TAKE 1 TABLET BY MOUTH ONCE D* COMPOUNDED PRESCRIPTION Referral: wound clinic, [place]* ROSUVASTATIN 10 MG TABLET Take 1 tablet by mouth every * METOPROLOL TARTRATE 25 MG TAB* Take 0.5 tablets by mouth abdiaziz* ASPIRIN 81 MG CHEWABLE TABLET 2 tablets by ORAL/FEEDING TUB* GABAPENTIN 300 MG CAPSULE Take 3 capsules by mouth ever* SILVER SULFADIAZINE 1 % TOPIC* Apply 1 application to affect* NORTRIPTYLINE 50 MG CAPSULE TAKE ONE CAPSULE BY MOUTH ONC* CHOLECALCIFEROL (VITAMIN D3) * Take 1 capsule by mouth once * CETIRIZINE 10 MG TABLET TAKE ONE TABLET BY MOUTH ONCE* TADALAFIL 20 MG TABLET Take 1 tablet by mouth once d* BLOOD SUGAR DIAGNOSTIC STRIPS Check blood glucose three georgie* FREESTYLE LANCETS 28 GAUGE USE DIRECTED 3 TO 4 TIMES * BLOOD-GLUCOSE METER KIT Freestyle LITE Meter Kit - Dx* Problem List As Of Date 06/15/2018 Noted Resolved Diabetes 1.5, 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 Hyperlipidemia [E78.5] INVALID FOR* Priority: E More... Diabetes type 2, controlled [E11.9] INVALID FOR* Lower back pain [M54.5] INVALID FOR* Priority: D More... Hearing loss [H91.90] INVALID FOR* Dizziness [R42] INVALID FOR* Other musculoskeletal symptoms referable to mixon*INVALID FOR* Hereditary and idiopathic peripheral neuropathy*INVALID FOR* Vitamin B12 deficiency [E53.8] INVALID FOR* PAD (peripheral artery disease) ([facility]) [I73.9] INVALID FOR* Priority: C Small vessel disease ([facility]) [I99.9] INVALID FOR* DM (diabetes mellitus), type 2 with neurologica*INVALID FOR* Priority: E More... Diabetes mellitus with background retinopathy (*INVALID FOR*07/13/2016 Type 1 diabetes mellitus with mild nonprolifera*INVALID FOR*06/08/2016 Other vitreous opacities - Both Eyes [H43.399] INVALID FOR* Lens replaced by other means - Both Eyes [Z96.1]INVALID FOR*07/13/2016 CVA (cerebral vascular accident) ([facility]) [I63.9] INVALID FOR* Type 2 diabetes, controlled, with neuropathy (H*INVALID FOR* Type 2 diabetes mellitus with diabetic neuropat*INVALID FOR*01/29/2016 Type 2 diabetes mellitus with diabetic polyneur*INVALID FOR* After-cataract obscuring vision [H26.499] INVALID FOR* Pseudophakia of both eyes [Z96.1] INVALID FOR* Hyperopia [H52.00] INVALID FOR* Astigmatism, regular [H52.229] INVALID FOR* Vitreous floaters of both eyes [H43.393] INVALID FOR* Meibomian gland dysfunction (MGD) of upper and *INVALID FOR* NSTEMI (non-ST elevated myocardial infarction) *INVALID FOR* Priority: C More... Coronary artery disease involving [place]ardo*INVALID FOR* Priority: A More... C. difficile colitis [A04.72] INVALID FOR* Priority: I More... More... Nicotine use disorder, F17.2 [F17.200] INVALID FOR* Priority: B More... Hypotension [I95.9] INVALID FOR*04/14/2018 Priority: C More... Cardiac insufficiency (HCC) [I50.9] INVALID FOR*04/14/2018 Priority: C More... Atelectasis [J98.11] INVALID FOR* Priority: B More... Post-operative pain [G89.18] INVALID FOR* Priority: D More... Depression [F32.9] INVALID FOR* Priority: D More... Transition of care performed with sharing of cl*INVALID FOR* Priority: Moderate More... Bilateral pneumothoraces [J93.9] INVALID FOR* Priority: B More... Discharge planning issues [Z02.9] INVALID FOR* More... Weight gain [R63.5] INVALID FOR* Decubitus ulcer of right heel [L89.619] INVALID FOR* History of sternectomy [Z98.890] INVALID FOR* Hx of CABG [Z95.1] INVALID FOR* Skin wound from surgical incision [T14.8XXA] INVALID FOR* Localized bacterial infection of skin [L08.9, B*INVALID FOR* Encounter Status:Closed by JESUSITA HAYDEN on 06/16/18 CNNURSE Observed: 06/14/2018 Status: COMPLETED Source: [place] 1:30 PM [facility] REPOSITORY Nurse Visit (FAMPWS) RICK GEORGE JR. ([id number]) 1960 M Date Time Provider Department 06/14/18 1:30 PM [facility] During your visit today, we recorded the following information about you: Ernestina Shahid LPN 06/14/2018 1:31 PM Signed Patient presents for B-12 injection. Denies any problems at this time. Patient instructed on any SE of medication, verbalized understanding and agreed to proceed with treatment. Tolerated injection well. Ernestina Shahid LPN Referring Provider: AVERY ESCALANTE [[id number]] Allergies As of Date: 06/14/2018 Noted Allergy Reaction LIPITOR (ATORVASTATIN CALCIUM) 01/07/2015 15 - Contraindication- Medical Olsen* Comments: Elevated LFTs and elevated CK level METFORMIN 03/01/2013 6 - Diarrhea Date Reviewed: 05/25/2018 Reviewed by: Magdaleno Escamilla - Fully Assessed Reason for Visit: B-12 Injection [247] Primary Visit Diagnosis:Vitamin B12 deficiency [E53.8] Prescriptions as of 06/14/2018 Sig: SANTYL 250 UNIT/GRAM TOPICAL * Apply once daily AMLODIPINE 5 MG TABLET Take 1 tablet by mouth once d* LISINOPRIL 2.5 MG TABLET Take 1 tablet by mouth once d* INSULIN LISPRO (U-100) 100 UN* INJECT 12 TO 20 UNITS SUBCUTA* INSULIN GLARGINE (U-100) 100 * INJECT 20 UNITS SUBCUTANEOUSL* PEN NEEDLE, DIABETIC 31 GAUGE* USE TO GIVE INSULIN INJECTION* BASAGLAR KWIKPEN U-100 INSULI* INJECT 20 UNITS SUBCUTANEOUSL* HUMALOG KWIKPEN (U-100) INSUL* INJECT 12 TO 20 UNITS SUBCUTA* FUROSEMIDE 20 MG TABLET TAKE 1 TABLET BY MOUTH ONCE D* COMPOUNDED PRESCRIPTION Referral: wound clinic, [place]* ROSUVASTATIN 10 MG TABLET Take 1 tablet by mouth every * METOPROLOL TARTRATE 25 MG TAB* Take 0.5 tablets by mouth abdiaziz* ASPIRIN 81 MG CHEWABLE TABLET 2 tablets by ORAL/FEEDING TUB* GABAPENTIN 300 MG CAPSULE Take 3 capsules by mouth ever* SILVER SULFADIAZINE 1 % TOPIC* Apply 1 application to affect* NORTRIPTYLINE 50 MG CAPSULE TAKE ONE CAPSULE BY MOUTH ONC* CHOLECALCIFEROL (VITAMIN D3) * Take 1 capsule by mouth once * CETIRIZINE 10 MG TABLET TAKE ONE TABLET BY MOUTH ONCE* TADALAFIL 20 MG TABLET Take 1 tablet by mouth once d* BLOOD SUGAR DIAGNOSTIC STRIPS Check blood glucose three georgie* FREESTYLE LANCETS 28 GAUGE USE DIRECTED 3 TO 4 TIMES * BACLOFEN 20 MG TABLET Take 20 mg by mouth three georgie* BLOOD-GLUCOSE METER KIT Freestyle LITE Meter Kit - Dx* Problem List As Of Date 06/14/2018 Noted Resolved Diabetes 1.5, 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 Hyperlipidemia [E78.5] INVALID FOR* Priority: E More... Diabetes type 2, controlled [E11.9] INVALID FOR* Lower back pain [M54.5] INVALID FOR* Priority: D More... Hearing loss [H91.90] INVALID FOR* Dizziness [R42] INVALID FOR* Other musculoskeletal symptoms referable to mixon*INVALID FOR* Hereditary and idiopathic peripheral neuropathy*INVALID FOR* Vitamin B12 deficiency [E53.8] INVALID FOR* PAD (peripheral artery disease) (HCC) [I73.9] INVALID FOR* Priority: C Small vessel disease (HCC) [I99.9] INVALID FOR* DM (diabetes mellitus), type 2 with neurologica*INVALID FOR* Priority: E More... Diabetes mellitus with background retinopathy (*INVALID FOR*07/13/2016 Type 1 diabetes mellitus with mild nonprolifera*INVALID FOR*06/08/2016 Other vitreous opacities - Both Eyes [H43.399] INVALID FOR* Lens replaced by other means - Both Eyes [Z96.1]INVALID FOR*07/13/2016 CVA (cerebral vascular accident) ([facility]) [I63.9] INVALID FOR* Type 2 diabetes, controlled, with neuropathy (H*INVALID FOR* Type 2 diabetes mellitus with diabetic neuropat*INVALID FOR*01/29/2016 Type 2 diabetes mellitus with diabetic polyneur*INVALID FOR* After-cataract obscuring vision [H26.499] INVALID FOR* Pseudophakia of both eyes [Z96.1] INVALID FOR* Hyperopia [H52.00] INVALID FOR* Astigmatism, regular [H52.229] INVALID FOR* Vitreous floaters of both eyes [H43.393] INVALID FOR* Meibomian gland dysfunction (MGD) of upper and *INVALID FOR* NSTEMI (non-ST elevated myocardial infarction) *INVALID FOR* Priority: C More... Coronary artery disease involving [place]ardo*INVALID FOR* Priority: A More... C. difficile colitis [A04.72] INVALID FOR* Priority: I More... More... Nicotine use disorder, F17.2 [F17.200] INVALID FOR* Priority: B More... Hypotension [I95.9] INVALID FOR*04/14/2018 Priority: C More... Cardiac insufficiency (HCC) [I50.9] INVALID FOR*04/14/2018 Priority: C More... Atelectasis [J98.11] INVALID FOR* Priority: B More... Post-operative pain [G89.18] INVALID FOR* Priority: D More... Depression [F32.9] INVALID FOR* Priority: D More... Transition of care performed with sharing of cl*INVALID FOR* Priority: Moderate More... Bilateral pneumothoraces [J93.9] INVALID FOR* Priority: B More... Discharge planning issues [Z02.9] INVALID FOR* More... Weight gain [R63.5] INVALID FOR* Decubitus ulcer of right heel [L89.619] INVALID FOR* History of sternectomy [Z98.890] INVALID FOR* Hx of CABG [Z95.1] INVALID FOR* Skin wound from surgical incision [T14.8XXA] INVALID FOR* Localized bacterial infection of skin [L08.9, B*INVALID FOR* Encounter Status:Closed by ERNESTINA SHAHID LPN on 06/14/18 PROGRESS Observed: 06/14/2018 Status: COMPLETED Source: [place] 1:27 PM [facility] REPOSITORY HNO ID: [id number] Author: Ernestina Shahid LPN Service: (none) Author Type: (none) Type: Progress Notes Filed: 06/14/2018 1:31 PM Note Text: Patient presents for B-12 injection. Denies any problems at this time. Patient instructed on any SE of medication, verbalized understanding and agreed to proceed with treatment. Tolerated injection well. Ernestina Shahid LPN PROGRESS Observed: 06/13/2018 Status: COMPLETED Source: [place] 4:59 PM [facility] REPOSITORY HNO ID: [id number] Author: Catracho Mc (Rn) Service: (none) Author Type: Registered Nurse Type: Progress Notes Filed: 06/15/2018 2:33 PM Note Text: PRIMARY CARE COORDINATION FOLLOW-UP NOTE Provider Action/FYI 1. Spk with Pt who reports BS a little higher after eating waffles, took Humalog 15 units BS dropped his BS to 37, treated, BS returned to 238, then 145. Reviewed [facility] Hypoglycemia protocol. Instructed to carry juice, hard candies for treatment of Hypoglycemia if needed, and to eat protein at each meal to keep BS stable. Pt verbalized understanding. 2. Pt reports finishing last dose of ATB prescribed by wound care center for his CT site infection, is having diarrhea 5-6 x daily today. 3. Pt reports his right leg is swollen and has back pain after lifting 50 lb bags, instructed to hold on lifting and call [facility] for release to Cardiac Rehab. Pt verbalized understanding. 4. Appt scheduled with José Miguel Stanton 06/15/18, Echo previously scheduled for 06/15/18 Patient identified by name and date of . YES Spoke to patient Signature Jesusita Hayden RN June 13, 2018 JAZLYN Observed: 06/13/2018 Status: COMPLETED Source: [place] 12:00 AM [facility] REPOSITORY Patient Outreach (FAMPWS) RICK GEORGE JR. ([id number]) 1960 M Date Time Provider Department 06/13/18 [facility] ([facility]) FAMPWS During your visit today, we recorded the following information about you: Jesusita Hayden RN 06/15/2018 2:33 PM Signed PRIMARY CARE COORDINATION FOLLOW-UP NOTE Provider Action/FYI 1. Spk with Pt who reports BS a little higher after eating waffles, took Humalog 15 units BS dropped his BS to 37, treated, BS returned to 238, then 145. Reviewed [facility] Hypoglycemia protocol. Instructed to carry juice, hard candies for treatment of Hypoglycemia if needed, and to eat protein at each meal to keep BS stable. Pt verbalized understanding. 2. Pt reports finishing last dose of ATB prescribed by [facility] for his CT site infection, is having diarrhea 5-6 x daily today. 3. Pt reports his right leg is swollen and has back pain after lifting 50 lb bags, instructed to hold on lifting and call [facility] for release to Cardiac Rehab. Pt verbalized understanding. 4. Appt scheduled with José Miguel Stanton 06/15/18, Echo previously scheduled for 06/15/18 Patient identified by name and date of . 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 [[id number]] Cmt: Update, Appt Reason For Visit History Recorded Prescriptions as of 06/13/2018 Sig: SANTYL 250 UNIT/GRAM TOPICAL * Apply once daily AMLODIPINE 5 MG TABLET Take 1 tablet by mouth once d* LISINOPRIL 2.5 MG TABLET Take 1 tablet by mouth once d* INSULIN LISPRO (U-100) 100 UN* INJECT 12 TO 20 UNITS SUBCUTA* INSULIN GLARGINE (U-100) 100 * INJECT 20 UNITS SUBCUTANEOUSL* PEN NEEDLE, DIABETIC 31 GAUGE* USE TO GIVE INSULIN INJECTION* BASAGLAR KWIKPEN U-100 INSULI* INJECT 20 UNITS SUBCUTANEOUSL* HUMALOG KWIKPEN (U-100) INSUL* INJECT 12 TO 20 UNITS SUBCUTA* FUROSEMIDE 20 MG TABLET TAKE 1 TABLET BY MOUTH ONCE D* COMPOUNDED PRESCRIPTION Referral: wound clinic, [place]* ROSUVASTATIN 10 MG TABLET Take 1 tablet by mouth every * METOPROLOL TARTRATE 25 MG TAB* Take 0.5 tablets by mouth abdiaziz* ASPIRIN 81 MG CHEWABLE TABLET 2 tablets by ORAL/FEEDING TUB* GABAPENTIN 300 MG CAPSULE Take 3 capsules by mouth ever* SILVER SULFADIAZINE 1 % TOPIC* Apply 1 application to affect* NORTRIPTYLINE 50 MG CAPSULE TAKE ONE CAPSULE BY MOUTH ONC* CHOLECALCIFEROL (VITAMIN D3) * Take 1 capsule by mouth once * CETIRIZINE 10 MG TABLET TAKE ONE TABLET BY MOUTH ONCE* TADALAFIL 20 MG TABLET Take 1 tablet by mouth once d* BLOOD SUGAR DIAGNOSTIC STRIPS Check blood glucose three georgie* FREESTYLE LANCETS 28 GAUGE USE DIRECTED 3 TO 4 TIMES * X BACLOFEN 20 MG TABLET Take 20 mg by mouth three georgie* BLOOD-GLUCOSE METER KIT Freestyle LITE Meter Kit - Dx* Problem List As Of Date 06/13/2018 Noted Resolved Diabetes 1.5, 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 Hyperlipidemia [E78.5] INVALID FOR* Priority: E More... Diabetes type 2, controlled [E11.9] INVALID FOR* Lower back pain [M54.5] INVALID FOR* Priority: D More... Hearing loss [H91.90] INVALID FOR* Dizziness [R42] INVALID FOR* Other musculoskeletal symptoms referable to mixon*INVALID FOR* Hereditary and idiopathic peripheral neuropathy*INVALID FOR* Vitamin B12 deficiency [E53.8] INVALID FOR* PAD (peripheral artery disease) ([facility]) [I73.9] INVALID FOR* Priority: C Small vessel disease ([facility]) [I99.9] INVALID FOR* DM (diabetes mellitus), type 2 with neurologica*INVALID FOR* Priority: E More... Diabetes mellitus with background retinopathy (*INVALID FOR*07/13/2016 Type 1 diabetes mellitus with mild nonprolifera*INVALID FOR*06/08/2016 Other vitreous opacities - Both Eyes [H43.399] INVALID FOR* Lens replaced by other means - Both Eyes [Z96.1]INVALID FOR*07/13/2016 CVA (cerebral vascular accident) ([facility]) [I63.9] INVALID FOR* Type 2 diabetes, controlled, with neuropathy (H*INVALID FOR* Type 2 diabetes mellitus with diabetic neuropat*INVALID FOR*01/29/2016 Type 2 diabetes mellitus with diabetic polyneur*INVALID FOR* After-cataract obscuring vision [H26.499] INVALID FOR* Pseudophakia of both eyes [Z96.1] INVALID FOR* Hyperopia [H52.00] INVALID FOR* Astigmatism, regular [H52.229] INVALID FOR* Vitreous floaters of both eyes [H43.393] INVALID FOR* Meibomian gland dysfunction (MGD) of upper and *INVALID FOR* NSTEMI (non-ST elevated myocardial infarction) *INVALID FOR* Priority: C More... Coronary artery disease involving [place] ricardo*INVALID FOR* Priority: A More... C. difficile colitis [A04.72] INVALID FOR* Priority: I More... More... Nicotine use disorder, F17.2 [F17.200] INVALID FOR* Priority: B More... Hypotension [I95.9] INVALID FOR*04/14/2018 Priority: C More... Cardiac insufficiency ([facility]) [I50.9] INVALID FOR*04/14/2018 Priority: C More... Atelectasis [J98.11] INVALID FOR* Priority: B More... Post-operative pain [G89.18] INVALID FOR* Priority: D More... Depression [F32.9] INVALID FOR* Priority: D More... Transition of care performed with sharing of cl*INVALID FOR* Priority: Moderate More... Bilateral pneumothoraces [J93.9] INVALID FOR* Priority: B More... Discharge planning issues [Z02.9] INVALID FOR* More... Weight gain [R63.5] INVALID FOR* Decubitus ulcer of right heel [L89.619] INVALID FOR* History of sternectomy [Z98.890] INVALID FOR* Hx of CABG [Z95.1] INVALID FOR* Skin wound from surgical incision [T14.8XXA] INVALID FOR* Localized bacterial infection of skin [L08.9, B*INVALID FOR* Encounter Status:Closed by JESUSITA HAYDEN on 06/15/18 CBC AND DIFFERENTIAL Collected: 06/07/2018 Status: F Source: [place] 10:42 AM [facility] [place] REPOSITORY TYPE CODE TESTS RESULT OUT OF REFERENCE UNITS RANGE LAB WBC 3.70-11.00 k/uL WBC 8.12 LAB RBC 4.20-6.00 m/uL Low RBC 4.17 LAB HGB 13.0-17.0 g/dL Low Hemoglobin 11.8 LAB HCT 39.0-51.0 % Hematocrit 39.2 LAB MCV 80.0-100.0 fL MCV 94.0 LAB MCH 26.0-34.0 pG MCH 28.3 LAB MCHC 30.5-36.0 g/dL Low MCHC 30.1 LAB RDWCV 11.5-15.0 % RDW-CV High 15.4 LAB PLTCT 150-400 k/uL Platelet Count 301 LAB MPV 9.0-12.7 fL MPV 10.5 LAB ANEUT % Neut% 72.9 LAB AANEUT 1.45-7.50 k/uL Abs Neut 5.92 LAB ALYMP % Lymph% 13.2 LAB AALYMP 1.00-4.00 k/uL Abs Lymph 1.07 LAB AMONO % Leslie% 12.2 LAB AAMONO <0.87 k/uL Abs Leslie High 0.99 LAB AEOS % Eosin% 1.2 LAB AAEOS <0.46 k/uL Abs Eosin 0.10 LAB ABASO % Baso% 0.5 LAB AABASO <0.11 k/uL Abs Baso 0.04 LAB AUNRBC 0 /100 WBC NRBCs 0.0 LAB ABNRBC <0.01 k/uL Absolute nRBC <0.01 LAB DTYP DTYPE Auto Diff Performed By: #### CBCDIF #### [facility] [address] [place], [place] [address] BASIC METABOLIC PANL Collected: 06/07/2018 Status: F Source: [place] 10:42 AM [facility] REPOSITORY TYPE CODE TESTS RESULT OUT OF REFERENCE UNITS RANGE LAB GLU 74-99 mg/dL High Glucose 126 Result Comment: The [place] [employer] (ADA) provides guidance for cutoff values for fasting glucose and random glucose. The ADA defines fasting as no caloric intake for at least 8 hours. Fas ting plasma glucose results between 100 to 125 mg/dL indicate increased risk for diabetes (prediabetes). Fasting plasma glucose results greater than or equal to 126 mg/dL meet the criteria for diagnosis of diabetes. In the absence of unequivocal hyperglycemia, results should be confirmed by repeat testing. In a patient with classic symptoms of hyperglycemia or hyperglycemic crisis, random plasma glucose results greater than or equal to 200 mg/dL meet the criteria for diagnosis of diabetes. Reference: Standards of Medical Care in Diabetes 2016, [place] [employer]. Diabetes Care. 2016.39(Suppl 1). LAB BUN 9-24 mg/dL BUN High 26 LAB CRET 0.73-1.22 mg/dL Creatinine 0.94 LAB NA 136-144 mmol/L Sodium 136 LAB K 3.7-5.1 mmol/L Potassium High 5.3 LAB CL 97-105 mmol/L Chloride 97 LAB CO2 22-30 mmol/L CO2 25 LAB AGAP 9-18 mmol/L Anion Gap 14 LAB CA 8.5-10.2 mg/dL Calcium, Total 9.5 LAB GFRAA eGFR- Amer. >60 LAB GFRNAA . eGFR-All Other Races >60 Result Comment: eGFR (Estimated GFR) Units of measure: mL/min/1.73 meters squared eGFR is derived from the reexpressed MDRD Study equation using the following parameters: serum creatinine, age, gender and race. The creatinine assay has been calibrated to be traceable to IDMS. An eGFR <60 mL/min/1.73m2 for >3 months is consistent with chronic kidney disease. Refer to KDOQI guidelines for clinical interpretation. In patients with unstable renal function, e.g. those with acute kidney injury, the eGFR may not accurately reflect actual GFR. Performed By: #### BMP #### [facility] [address] [place], [place] [address] PROGRESS Observed: 06/01/2018 Status: COMPLETED Source: [place] 2:33 PM [facility] REPOSITORY HNO ID: [id number] Author: Catracho Mc (Rn) Service: (none) Author Type: Registered Nurse Type: Progress Notes Filed: 06/06/2018 11:29 AM Note Text: PRIMARY CARE COORDINATION FOLLOW-UP NOTE Provider Action/FYI Call to Pt left a vm for a status update. Patient identified by name and date of . YES Signature Jesusita Hayden RN June 01, 2018 CNPTOUTREACH Observed: 06/01/2018 Status: COMPLETED Source: [place] 12:00 AM [facility] REPOSITORY Patient Outreach (FAMPWS) RICK GEORGE JR. ([id number]) 1960 M Date Time Provider Department 06/01/18 CATRACHO [facility]ACKENZIE) FAMPWS During your visit today, we recorded the following information about you: Jesusita Hayden RN 06/06/2018 11:29 AM Signed PRIMARY CARE COORDINATION FOLLOW-UP NOTE Provider Action/FYI Call to Pt left a vm for a status update. Patient identified by name and date of . 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 [[id number]] Prescriptions as of 06/01/2018 Sig: SANTYL 250 UNIT/GRAM TOPICAL * Apply once daily AMLODIPINE 5 MG TABLET Take 1 tablet by mouth once d* LISINOPRIL 2.5 MG TABLET Take 1 tablet by mouth once d* INSULIN LISPRO (U-100) 100 UN* INJECT 12 TO 20 UNITS SUBCUTA* INSULIN GLARGINE (U-100) 100 * INJECT 20 UNITS SUBCUTANEOUSL* PEN NEEDLE, DIABETIC 31 GAUGE* USE TO GIVE INSULIN INJECTION* BASAGLAR KWIKPEN U-100 INSULI* INJECT 20 UNITS SUBCUTANEOUSL* HUMALOG KWIKPEN (U-100) INSUL* INJECT 12 TO 20 UNITS SUBCUTA* FUROSEMIDE 20 MG TABLET TAKE 1 TABLET BY MOUTH ONCE D* COMPOUNDED PRESCRIPTION Referral: wound clinic, [place]* ROSUVASTATIN 10 MG TABLET Take 1 tablet by mouth every * METOPROLOL TARTRATE 25 MG TAB* Take 0.5 tablets by mouth abdiaziz* ASPIRIN 81 MG CHEWABLE TABLET 2 tablets by ORAL/FEEDING TUB* GABAPENTIN 300 MG CAPSULE Take 3 capsules by mouth ever* SILVER SULFADIAZINE 1 % TOPIC* Apply 1 application to affect* NORTRIPTYLINE 50 MG CAPSULE TAKE ONE CAPSULE BY MOUTH ONC* CHOLECALCIFEROL (VITAMIN D3) * Take 1 capsule by mouth once * CETIRIZINE 10 MG TABLET TAKE ONE TABLET BY MOUTH ONCE* TADALAFIL 20 MG TABLET Take 1 tablet by mouth once d* BLOOD SUGAR DIAGNOSTIC STRIPS Check blood glucose three georgie* FREESTYLE LANCETS 28 GAUGE USE DIRECTED 3 TO 4 TIMES * BACLOFEN 20 MG TABLET Take 20 mg by mouth three georgie* BLOOD-GLUCOSE METER KIT Freestyle LITE Meter Kit - Dx* Problem List As Of Date 06/01/2018 Noted Resolved Diabetes 1.5, 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 Hyperlipidemia [E78.5] INVALID FOR* Priority: E More... Diabetes type 2, controlled [E11.9] INVALID FOR* Lower back pain [M54.5] INVALID FOR* Priority: D More... Hearing loss [H91.90] INVALID FOR* Dizziness [R42] INVALID FOR* Other musculoskeletal symptoms referable to mixon*INVALID FOR* Hereditary and idiopathic peripheral neuropathy*INVALID FOR* Vitamin B12 deficiency [E53.8] INVALID FOR* PAD (peripheral artery disease) ([facility]) [I73.9] INVALID FOR* Priority: C Small vessel disease ([facility]) [I99.9] INVALID FOR* DM (diabetes mellitus), type 2 with neurologica*INVALID FOR* Priority: E More... Diabetes mellitus with background retinopathy (*INVALID FOR*07/13/2016 Type 1 diabetes mellitus with mild nonprolifera*INVALID FOR*06/08/2016 Other vitreous opacities - Both Eyes [H43.399] INVALID FOR* Lens replaced by other means - Both Eyes [Z96.1]INVALID FOR*07/13/2016 CVA (cerebral vascular accident) ([facility]) [I63.9] INVALID FOR* Type 2 diabetes, controlled, with neuropathy (H*INVALID FOR* Type 2 diabetes mellitus with diabetic neuropat*INVALID FOR*01/29/2016 Type 2 diabetes mellitus with diabetic polyneur*INVALID FOR* After-cataract obscuring vision [H26.499] INVALID FOR* Pseudophakia of both eyes [Z96.1] INVALID FOR* Hyperopia [H52.00] INVALID FOR* Astigmatism, regular [H52.229] INVALID FOR* Vitreous floaters of both eyes [H43.393] INVALID FOR* Meibomian gland dysfunction (MGD) of upper and *INVALID FOR* NSTEMI (non-ST elevated myocardial infarction) *INVALID FOR* Priority: C More... Coronary artery disease involving [place] ricardo*INVALID FOR* Priority: A More... C. difficile colitis [A04.72] INVALID FOR* Priority: I More... More... Nicotine use disorder, F17.2 [F17.200] INVALID FOR* Priority: B More... Hypotension [I95.9] INVALID FOR*04/14/2018 Priority: C More... Cardiac insufficiency (HCC) [I50.9] INVALID FOR*04/14/2018 Priority: C More... Atelectasis [J98.11] INVALID FOR* Priority: B More... Post-operative pain [G89.18] INVALID FOR* Priority: D More... Depression [F32.9] INVALID FOR* Priority: D More... Transition of care performed with sharing of cl*INVALID FOR* Priority: Moderate More... Bilateral pneumothoraces [J93.9] INVALID FOR* Priority: B More... Discharge planning issues [Z02.9] INVALID FOR* More... Weight gain [R63.5] INVALID FOR* Decubitus ulcer of right heel [L89.619] INVALID FOR* History of sternectomy [Z98.890] INVALID FOR* Hx of CABG [Z95.1] INVALID FOR* Skin wound from surgical incision [T14.8XXA] INVALID FOR* Localized bacterial infection of skin [L08.9, B*INVALID FOR* Encounter Status:Closed by JESUSITA HAYDEN on 06/06/18 CNCO Observed: 05/30/2018 Status: COMPLETED Source: [place] 12:00 AM [facility] OTHER CAMPUS REPOSITORY Letter Text [facility] Gabriele Loya. [facility] [id number] Dept: [phone] Dept Magdaleno Escamilla MD May 30, 2018 Rick George Jr. [address] [place] [id number] 1960 Dear , Our office has tried to contact you but have been unsuccessful. Please contact our office regarding scheduling an Echocardiogram. Please notify us of any change of your phone number or address. Sincerely, Magdaleno Escamilla M.D. (Signed electronically to expedite mailing) PROGRESS Observed: 05/25/2018 Status: COMPLETED Source: [place] 1:51 PM [facility] OTHER CAMPUS REPOSITORY HNO ID: [id number] Author: Magdaleno Escamilla Service: (none) Author Type: Physician Type: Progress Notes Filed: 05/25/2018 2:04 PM Note Text: PRIMARY CARE PHYSICIAN: Avery Escalante, [address] [place] [address] REFERRING PHYSICIAN: SELF CHIEF COMPLAINT: CAD s/p CABG HISTORY OF PRESENT ILLNESS: Mr. George is a 58 year old male with a history of hypertension, hyperlipidemia, diabetes, prior CVA, peripheral arterial disease who presents to cardiology clinic to establish care after recent hospitalization for non-ST elevation PA status post 3 vessel bypass surgery in March 2018. Patient presented to [facility] in March 2016 with complaints of exertional dyspnea, fatigue, diarrhea and mild chest pain. He was found to have elevated troponins consistent with a non-ST elevation PA. In addition, he was found be C. difficile positive. He was started on optimal medical therapy for his non-ST elevation PA and was diuresed adequately. He subsequently underwent cardiac catheterization revealing three-vessel coronary disease. He was transferred to [facility] and underwent three-vessel bypass surgery in April 12, 2018. His postoperative course was largely uncomplicated. He presents to cardiology clinic today to establish care. In discussion with the patient in clinic today, he denies any significant cardiac complaints. He specifically denies any symptoms of chest pain, dyspnea on exertion, orthopnea, paroxysmal nocturnal dyspnea, lower extremity edema, claudication, presyncope, syncope, or palpitations. 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 He otherwise has been compliant with his medications. Although he eats plenty of fruits and vegetables off his farm, he does report eating mostly red meat and does not eat any fish or poultry. Of note, he had noticed some mild drainage at the inferior portion of his substernal incision and along one of his chest tube incisions. He has followed up with his PCP and is being managed by the wound care center in [place]. PAST MEDICAL HISTORY Diagnosis Date - Cataract b/l, eye exam 05/29/13 - CTS (carpal tunnel syndrome) 10/2013 b/l, chronic, Dr. 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 Mazin Hinojosa Neuro, likely from DM and Vitamin B12 defic - Stroke (HCC) 10/01/13 - Ulnar neuropathy 10/2013 b/l, chronic, Dr. Mazin Hinojosa EMG - Vitamin D deficiency 11/2013 PAST SURGICAL HISTORY Procedure Laterality Date - DISCISSION,2ND CATARACT,LASER 06/07/2013 Yag Capsulotomy-Right eye - LASER, SECONDARY CATARACT 2006 OU - PAST SURGICAL HISTORY OF 02/2013 Amputation Right Gt toe MEDICATIONS: SANTYL ointment Apply once daily insulin lispro (HUMALOG KWIKPEN INSULIN) 100 unit/mL inpn INJECT 12 TO 20 UNITS SUBCUTANEOUSLY WITH MEALS DIRECTED insulin glargine (BASAGLAR KWIKPEN U-100 INSULIN) 100 unit/mL (3 mL) inpn INJECT 20 UNITS SUBCUTANEOUSLY ONCE DAILY AT BEDTIME insulin needles, DISPOSABLE, (BD INSULIN PEN NEEDLE UF) 31 gauge x 03/01 ndle USE TO GIVE INSULIN INJECTIONS 4 TIMES DAILY BASAGLAR KWIKPEN U-100 INSULIN 100 unit/mL (3 mL) inpn INJECT 20 UNITS SUBCUTANEOUSLY AT BEDTIME HUMALOG KWIKPEN INSULIN 100 unit/mL inpn INJECT 12 TO 20 UNITS SUBCUTANEOUSLY WITH MEALS DIRECTED furosemide (LASIX) 20 mg tablet TAKE 1 TABLET BY MOUTH ONCE DAILY COMPOUNDED PRESCRIPTION Referral: wound clinic, [facility] rosuvastatin (CRESTOR) 10 mg tablet Take 1 tablet by mouth every 48 hours. metoprolol tartrate, short acting, (LOPRESSOR) 25 mg tablet Take 0.5 tablets by mouth every 12 hours. aspirin 81 mg chewable tablet 2 tablets by ORAL/FEEDING TUBE route once daily. gabapentin (NEURONTIN) 300 mg capsule Take 3 capsules by mouth every 8 hours for 30 days. silver sulfADIAZINE (SSD) 1 % cream Apply 1 application to affected area once daily. nortriptyline (PAMELOR) 50 mg capsule TAKE ONE CAPSULE BY MOUTH ONCE DAILY AT BEDTIME Cholecalciferol, Vitamin D3, 5,000 unit cap Take 1 capsule by mouth once daily. cetirizine (ZYRTEC) 10 mg tablet TAKE ONE TABLET BY MOUTH ONCE DAILY Tadalafil (CIALIS) 20 mg tab(s) Take 1 tablet by mouth once daily. blood sugar diagnostic (FREESTYLE LITE STRIPS) test strip Check blood glucose three times daily. Dx: E11.42, Insulin dependent FREESTYLE LANCETS 28 gauge misc USE DIRECTED 3 TO 4 TIMES DAILY TO TEST BLOOD GLUCOSE baclofen (LIORESAL) 20 mg tablet Take 20 mg by mouth three times daily. Blood-Glucose Meter (FREESTYLE LITE METER) monitoring kit Freestyle LITE Meter Kit - Dx: Type 2 DM - Controlled E11.9 amLODIPine (NORVASC) 5 mg tablet Take 1 tablet by mouth once daily. lisinopril 2.5 mg tablet Take 1 tablet by mouth once daily. ALLERGIES Allergen Reactions - Lipitor [Atorvastat* Contraindication-Medical Surgical Elevated LFTs and elevated CK level - Metformin Diarrhea SOCIAL HISTORY: Social History Substance Use Topics - Smoking status: Never Smoker - Smokeless tobacco: Former User Types: Chew - Alcohol use No FAMILY HISTORY Problem Relation Age of Onset - Diabetes Mother - Heart Father - Heart Paternal Grandmother - Heart Paternal Grandfather REVIEW OF SYSTEMS: GENERAL: Negative for: Fever, Chills, or Night sweats HEENT: Negative for: Headache, Nosebleeds, Bleeding Gums NECK: Negative for: Pain, Stiffness RESPIRATORY: Negative for: Cough, Blood in Sputum, Shortness of breath, Wheezing CARDIAC: Negative history of chest pain on exertion, dyspnea on exertion, orthopnea, paroxysmal nocturnal dyspnea, lower extremity edema, presyncope, syncope, or palpitations GASTROINTESTINAL: Negative for: Abdominal pain, Nausea, Vomiting, Constipation, Diarrhea, Melena, Hematochezia MUSCULOSKELETAL: Positive for: Muscle or joint pain NEUROLOGIC/PSYCHIATRIC: Negative for: Weakness, Numbness, Tingling, Vertigo SKIN: Negative for: Rashes HEMATOLOGICAL/LYMPHATIC: Negative for: Easy bruising , Easy bleeding ENDOCRINE: Negative for: Heat or cold intolerance, Excessive sweating, Frequent urination, Frequent thirst. OTHER: The rest of the review of systems is unremarkable and negative or non-contributory PHYSICAL EXAMINATION: BP 122/84 Pulse 104 Resp 18 Ht 5' 10 (1.78m) Wt 203 lb (92.1kg) SpO2 97% BMI 29.13 kg/(m2). GENERAL: Well appearing, in no acute distress. SKIN: No clubbing, no cyanosis. HEENT: Extraocular movements intact; Mucous membranes moist; no JVD; no carotid bruits LUNGS: Clear to auscultation bilaterally, no rales, wheezing, or rhonchi. HEART: Regular rate and rhythm; normal S1/S2; no murmurs, gallops, or rubs; mild drainage noted from inferior portion of mid line incision ABDOMEN: Soft, nondistended, nontender, NABS EXTREMETIES: Trace R lower extremity edema; Grade 2/4 distal pulses bilaterally. Contracted fingers NEURO: Oriented to person, place and time. Alert, cooperative. MUSCULOSKELETAL: Normal gait. PSYCH: Normal mood/affect CARDIAC TESTING: EKG: EKG, 04/28/18: Normal sinus rhythm. Nonspecific T-wave abnormality. Echocardiogram: TTE, 04/04/18: Normal LV systolic function with EF 57% with hypokinesis of the basal inferior wall. Mild to moderate mitral regurgitation. Coronary angiography: Left Heart Catheterization, 04/03/18: 25% stenosis in the left main coronary artery, 85% stenosis in the proximal LAD, 50-75% stenosis in the mid LAD, 75% stenosis in the proximal left circumflex artery, 85% stenosis in the mid left circumflex artery, diffuse disease in a small caliber ramus intermedius, 95% stenosis in the RCA Cardiac Surgery: 3V CABG, 04/12/18: MACK to the LAD, saphenous vein graft to the OM, saphenous vein graft to the PDA I have personally reviewed the Electrocardiogram and reports of prior cardiac studies as detailed above. ASSESSMENT: Mr. George is a 58 year old male with a history of hypertension, hyperlipidemia, diabetes, prior CVA, peripheral arterial disease who presents to cardiology clinic to establish care after recent hospitalization for non-ST elevation PA status post 3 vessel bypass surgery in March 2018. PLAN AND RECOMMENDATIONS: 1. Coronary artery disease s/p 3V CABG: Patient reports doing well since his bypass surgery and denies any cardiac complaints. 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 He does eat plenty of fruits and vegetables but reports primarily eating red meat. I did recommend he try to cut back and his red meat intake and eat more fish and poultry instead. Otherwise, I recommended he continue on optimal medical therapy with aspirin, Crestor, and metoprolol. In addition, given his history of coronary disease and diabetes, I recommended starting low- dose lisinopril 2.5 mg daily. I will plan on checking a repeat basic metabolic panel in approximately 10 days' time to ensure his electrolytes and kidney function remain stable with this change. Finally, I will obtain a routine postoperative echocardiogram. In addition I've given him a referral to cardiac rehabilitation which he would like to pursue closer to his home in [place]. 2. Hypertension: Patient's blood pressure is well controlled on his current antihypertensive regimen. Given patient's reported history of Raynaud's syndrome, I recommended he could restart therapy with norvasc 5 mg daily. In addition, given his history of diabetes and coronary disease, I recommended he start low-dose REINIER inhibitor with lisinopril 2.5 mg daily. I will plan on checking a repeat basic metabolic panel in approximately 10 days' time to ensure his electrolytes and kidney function remain stable with this change. 3. Hyperlipidemia: Continue low dose crestor every other day as he previously did not tolerate lipitor well. Patient's LDL otherwise well controlled with LDL 56 in 04/03. 4. Prior CVA: Continue therapy with ASA and crestor. 5. Peripheral vascular occlusive disease: Continue therapy with ASA and crestor. Magdaleno Escamilla MD CNOV Observed: 05/25/2018 Status: COMPLETED Source: [facility] 1:00 PM CLINIC OTHER [facility] REPOSIT[facility] Office Visit (AG[facility]ARD[facility]) RICK GEORGE JR. ([id number]) 1960 M Date Time Provider Department 05/25/18 1:00 PM MAGDALENO ESCAMILLA AGCARDHWW During your visit today, we recorded the following information about you: Pulse Respiration Blood pressure Weight 104/minute 18/minute 122/84 92.1 kg Height 1.778 m Rachelle Eddy CMA 05/25/2018 1:08 PM Signed Patient referred by surgeon Dr Zhu s/p CABG. Patient has no cardiac complaints today. Rachelle Escamilla MD 05/25/2018 1:29 PM Signed Coronary Artery Disease View image View image What is coronary artery disease? Coronary artery disease (CAD) is a type of heart disease caused by a problem with the blood vessels that bring blood and oxygen to the heart muscle. These arteries are called the coronary arteries. This disease increases your risk for heart attack and sudden . What is the cause? Fatty deposits called plaque may build up in blood vessels and make them narrower. The narrowing decreases the amount of blood flow to the heart. Plaque also increases the chance that blood clots may form and block a blood vessel, which can cause a heart attack or stroke. Your risk for CAD may be higher if you: ? Have a family history of coronary artery disease at an early age ? Smoke ? Have high blood pressure ? Have diabetes ? Are very overweight ? Don?t get enough exercise ? Have high levels of blood fat--for example, high cholesterol What are the symptoms? Coronary artery disease may not cause any symptoms. When there are symptoms, the most common one is chest pain, called angina. You may feel: ? A feeling of tightness or heaviness in the chest ? Squeezing, pressure, or burning in the chest Angina symptoms usually: ? Last for 5 minutes or less and go away with rest or medicine such as nitroglycerin. ? Happen when the heart has to work harder, such as after a heavy meal or during physical activity or emotional stress. Angina may also happen when you are resting. Call 911 for emergency help right away if you have symptoms of a heart attack. The most common symptoms include: ? Chest pain or pressure, squeezing, or fullness in the center of your chest that lasts more than a few minutes, or goes away and comes back (may feel like indigestion or heartburn) ? Pain or discomfort in one or both arms or shoulders, or in your back, neck, jaw, or stomach ? Trouble breathing ? Breaking out in a cold sweat for no known reason ? If your provider has prescribed nitroglycerin for angina, pain that does not go away after taking your nitroglycerin as directed Along with these symptoms, you may also feel very tired, faint, or be sick to your stomach. How is it diagnosed? Your healthcare provider will ask about your symptoms and medical history and examine you. Tests may include: ? Blood tests ? An ECG (also called an EKG or electrocardiogram), which measures and records your heartbeat. ? An exercise treadmill test to see how your heart works when you exercise ? An echocardiogram, which uses sound waves (ultrasound) to see how well your heart is pumping ? Angiogram, which is a series of X-rays taken after your healthcare provider injects a special dye into your blood vessels to show the fernandez of the arteries and any blockage ? CT scan, which uses X-rays and a computer to show detailed pictures of the arteries How is it treated? Your treatment depends on many factors, such as your age, heart muscle function, and other health problems. At first, treatment may include diet changes and an exercise program. Your healthcare provider may prescribe medicine. ? Many people need to take 2 or more medicines to help prevent a heart attack or stroke. It may take several weeks or months to find the best treatment for you. ? Your provider may also prescribe other types of medicine to lower blood pressure, help stop chest pain, control an irregular heartbeat, help prevent blood clots, or lower blood fat (cholesterol). Your provider may recommend a daily low dose of aspirin. Taking an aspirin every day may lower your risk for a heart attack or stroke. Not everyone should take aspirin. Daily use of aspirin can cause problems, such as stomach irritation, bleeding, and hearing loss. Ask your healthcare provider if you should take aspirin and if so, how much to take. If your coronary arteries are badly blocked, you may need balloon angioplasty or bypass surgery. ? A balloon angioplasty opens blocked blood vessels and improves blood flow. A metal mesh device called a stent is usually left in the blood vessels to help keep them open. ? Bypass surgery uses blood vessels from other parts of the body, or manmade material, to make a new path around a blocked area. How can I take care of myself? If you have coronary artery disease, there are things you can do to take care of yourself now and prevent problems in the future. ? Follow your provider's advice about activity, exercise, medicine, and follow-up visits. ? Lower the amount of salt, saturated and trans fats, and cholesterol in your diet. ? Work with your healthcare provider to control diabetes, blood pressure, or other health problems you may have. ? Try to keep a healthy weight. If you are overweight, talk to your provider about ways to lose weight. ? If you smoke, try to quit. Talk to your healthcare provider about ways to quit smoking. ? Ask your healthcare provider: o How and when you will hear your test results o How long it will take to recover o What activities you should avoid and when you can return to your normal activities o How to take care of yourself at home o What symptoms or problems you should watch for and what to do if you have them ? Make sure you know when you should come back for a checkup. How can I help prevent coronary artery disease? You can prevent this disease with a heart-healthy lifestyle: ? Eat a healthy diet and keep a healthy weight. ? Stay fit with the right kind of exercise for you. ? Find ways to manage stress. ? Don?t smoke. ? Limit your use of alcohol. Talk to your healthcare provider about your personal and family medical history and your lifestyle habits. This will help you know what you can do to lower your risk for coronary artery disease. If you have a strong family history of CAD, a healthy lifestyle may slow the start of the disease and maybe even keep you from getting it. However, you must have regular checkups to keep a close watch on the health of your heart. Developed by [employer]. Published by [employer]. Copyright ?2014 [employer] and/or one of its subsidiaries. All rights reserved. Magdaleno Escamilla MD 05/25/2018 2:04 PM Signed PRIMARY CARE PHYSICIAN: Avery Escalante DO [address] [place] [address] REFERRING PHYSICIAN: SELF CHIEF COMPLAINT: CAD s/p CABG HISTORY OF PRESENT ILLNESS: Mr. George is a 58 year old male with a history of hypertension, hyperlipidemia, diabetes, prior CVA, peripheral arterial disease who presents to cardiology clinic to establish care after recent hospitalization for non-ST elevation PA status post 3 vessel bypass surgery in March 2018. Patient presented to [facility] in March 2016 with complaints of exertional dyspnea, fatigue, diarrhea and mild chest pain. He was found to have elevated troponins consistent with a non-ST elevation PA. In addition, he was found be C. difficile positive. He was started on optimal medical therapy for his non-ST elevation PA and was diuresed adequately. He subsequently underwent cardiac catheterization revealing three-vessel coronary disease. He was transferred to [facility] and underwent three-vessel bypass surgery in April 12, 2018. His postoperative course was largely uncomplicated. He presents to cardiology clinic today to establish care. In discussion with the patient in clinic today, he denies any significant cardiac complaints. He specifically denies any symptoms of chest pain, dyspnea on exertion, orthopnea, paroxysmal nocturnal dyspnea, lower extremity edema, claudication, presyncope, syncope, or palpitations. 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 He otherwise has been compliant with his medications. Although he eats plenty of fruits and vegetables off his farm, he does report eating mostly red meat and does not eat any fish or poultry. Of note, he had noticed some mild drainage at the inferior portion of his substernal incision and along one of his chest tube incisions. He has followed up with his PCP and is being managed by the wound care center in [place]. PAST MEDICAL HISTORY Diagnosis Date - Cataract b/l, eye exam 05/29/13 - CTS (carpal tunnel syndrome) 10/2013 b/l, chronic, Dr. 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 Mazin Hinojosa Neuro, likely from DM and Vitamin B12 defic - Stroke ([facility]) 10/01/13 - Ulnar neuropathy 10/2013 b/l, chronic, Dr. Mazin Hinojosa EMG - Vitamin D deficiency 11/2013 PAST SURGICAL HISTORY Procedure Laterality Date - DISCISSION,2ND CATARACT,LASER 06/07/2013 Yag Capsulotomy-Right eye - LASER, SECONDARY CATARACT 2006 OU - PAST SURGICAL HISTORY OF 02/2013 Amputation Right Gt toe MEDICATIONS: SANTYL ointment Apply once daily insulin lispro (HUMALOG KWIKPEN INSULIN) 100 unit/mL inpn INJECT 12 TO 20 UNITS SUBCUTANEOUSLY WITH MEALS DIRECTED insulin glargine (BASAGLAR KWIKPEN U-100 INSULIN) 100 unit/mL (3 mL) inpn INJECT 20 UNITS SUBCUTANEOUSLY ONCE DAILY AT BEDTIME insulin needles, DISPOSABLE, (BD INSULIN PEN NEEDLE UF) 31 gauge x 03/01 ndle USE TO GIVE INSULIN INJECTIONS 4 TIMES DAILY BASAGLAR KWIKPEN U-100 INSULIN 100 unit/mL (3 mL) inpn INJECT 20 UNITS SUBCUTANEOUSLY AT BEDTIME HUMALOG KWIKPEN INSULIN 100 unit/mL inpn INJECT 12 TO 20 UNITS SUBCUTANEOUSLY WITH MEALS DIRECTED furosemide (LASIX) 20 mg tablet TAKE 1 TABLET BY MOUTH ONCE DAILY COMPOUNDED PRESCRIPTION Referral: wound clinic, [facility] rosuvastatin (CRESTOR) 10 mg tablet Take 1 tablet by mouth every 48 hours. metoprolol tartrate, short acting, (LOPRESSOR) 25 mg tablet Take 0.5 tablets by mouth every 12 hours. aspirin 81 mg chewable tablet 2 tablets by ORAL/FEEDING TUBE route once daily. gabapentin (NEURONTIN) 300 mg capsule Take 3 capsules by mouth every 8 hours for 30 days. silver sulfADIAZINE (SSD) 1 % cream Apply 1 application to affected area once daily. nortriptyline (PAMELOR) 50 mg capsule TAKE ONE CAPSULE BY MOUTH ONCE DAILY AT BEDTIME Cholecalciferol, Vitamin D3, 5,000 unit cap Take 1 capsule by mouth once daily. cetirizine (ZYRTEC) 10 mg tablet TAKE ONE TABLET BY MOUTH ONCE DAILY Tadalafil (CIALIS) 20 mg tab(s) Take 1 tablet by mouth once daily. blood sugar diagnostic (FREESTYLE LITE STRIPS) test strip Check blood glucose three times daily. Dx: E11.42, Insulin dependent FREESTYLE LANCETS 28 gauge misc USE DIRECTED 3 TO 4 TIMES DAILY TO TEST BLOOD GLUCOSE baclofen (LIORESAL) 20 mg tablet Take 20 mg by mouth three times daily. Blood-Glucose Meter (FREESTYLE LITE METER) monitoring kit Freestyle LITE Meter Kit - Dx: Type 2 DM - Controlled E11.9 amLODIPine (NORVASC) 5 mg tablet Take 1 tablet by mouth once daily. lisinopril 2.5 mg tablet Take 1 tablet by mouth once daily. ALLERGIES Allergen Reactions - Lipitor [Atorvastat* Contraindication-Medical Surgical Elevated LFTs and elevated CK level - Metformin Diarrhea SOCIAL HISTORY: Social History Substance Use Topics - Smoking status: Never Smoker - Smokeless tobacco: Former User Types: Chew - Alcohol use No FAMILY HISTORY Problem Relation Age of Onset - Diabetes Mother - Heart Father - Heart Paternal Grandmother - Heart Paternal Grandfather REVIEW OF SYSTEMS: GENERAL: Negative for: Fever, Chills, or Night sweats HEENT: Negative for: Headache, Nosebleeds, Bleeding Gums NECK: Negative for: Pain, Stiffness RESPIRATORY: Negative for: Cough, Blood in Sputum, Shortness of breath, Wheezing CARDIAC: Negative history of chest pain on exertion, dyspnea on exertion, orthopnea, paroxysmal nocturnal dyspnea, lower extremity edema, presyncope, syncope, or palpitations GASTROINTESTINAL: Negative for: Abdominal pain, Nausea, Vomiting, Constipation, Diarrhea, Melena, Hematochezia MUSCULOSKELETAL: Positive for: Muscle or joint pain NEUROLOGIC/PSYCHIATRIC: Negative for: Weakness, Numbness, Tingling, Vertigo SKIN: Negative for: Rashes HEMATOLOGICAL/LYMPHATIC: Negative for: Easy bruising , Easy bleeding ENDOCRINE: Negative for: Heat or cold intolerance, Excessive sweating, Frequent urination, Frequent thirst. OTHER: The rest of the review of systems is unremarkable and negative or non-contributory PHYSICAL EXAMINATION: BP 122/84 Pulse 104 Resp 18 Ht 5' 10 (1.78m) Wt 203 lb (92.1kg) SpO2 97% BMI 29.13 kg/(m2). GENERAL: Well appearing, in no acute distress. SKIN: No clubbing, no cyanosis. HEENT: Extraocular movements intact; Mucous membranes moist; no JVD; no carotid bruits LUNGS: Clear to auscultation bilaterally, no rales, wheezing, or rhonchi. HEART: Regular rate and rhythm; normal S1/S2; no murmurs, gallops, or rubs; mild drainage noted from inferior portion of mid line incision ABDOMEN: Soft, nondistended, nontender, NABS EXTREMETIES: Trace R lower extremity edema; Grade 2/4 distal pulses bilaterally. Contracted fingers NEURO: Oriented to person, place and time. Alert, cooperative. MUSCULOSKELETAL: Normal gait. PSYCH: Normal mood/affect CARDIAC TESTING: EKG: EKG, 04/28/18: Normal sinus rhythm. Nonspecific T-wave abnormality. Echocardiogram: TTE, 04/04/18: Normal LV systolic function with EF 57% with hypokinesis of the basal inferior wall. Mild to moderate mitral regurgitation. Coronary angiography: Left Heart Catheterization, 04/03/18: 25% stenosis in the left main coronary artery, 85% stenosis in the proximal LAD, 50-75% stenosis in the mid LAD, 75% stenosis in the proximal left circumflex artery, 85% stenosis in the mid left circumflex artery, diffuse disease in a small caliber ramus intermedius, 95% stenosis in the RCA Cardiac Surgery: 3V CABG, 04/12/18: MACK to the LAD, saphenous vein graft to the OM, saphenous vein graft to the PDA I have personally reviewed the Electrocardiogram and reports of prior cardiac studies as detailed above. ASSESSMENT: Mr. George is a 58 year old male with a history of hypertension, hyperlipidemia, diabetes, prior CVA, peripheral arterial disease who presents to cardiology clinic to establish care after recent hospitalization for non-ST elevation PA status post 3 vessel bypass surgery in March 2018. PLAN AND RECOMMENDATIONS: 1. Coronary artery disease s/p 3V CABG: Patient reports doing well since his bypass surgery and denies any cardiac complaints. 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 He does eat plenty of fruits and vegetables but reports primarily eating red meat. I did recommend he try to cut back and his red meat intake and eat more fish and poultry instead. Otherwise, I recommended he continue on optimal medical therapy with aspirin, Crestor, and metoprolol. In addition, given his history of coronary disease and diabetes, I recommended starting low-dose lisinopril 2.5 mg daily. I will plan on checking a repeat basic metabolic panel in approximately 10 days' time to ensure his electrolytes and kidney function remain stable with this change. Finally, I will obtain a routine postoperative echocardiogram. In addition I've given him a referral to cardiac rehabilitation which he would like to pursue closer to his home in [place]. 2. Hypertension: Patient's blood pressure is well controlled on his current antihypertensive regimen. Given patient's reported history of Raynaud's syndrome, I recommended he could restart therapy with norvasc 5 mg daily. In addition, given his history of diabetes and coronary disease, I recommended he start low-dose REINIER inhibitor with lisinopril 2.5 mg daily. I will plan on checking a repeat basic metabolic panel in approximately 10 days' time to ensure his electrolytes and kidney function remain stable with this change. 3. Hyperlipidemia: Continue low dose crestor every other day as he previously did not tolerate lipitor well. Patient's LDL otherwise well controlled with LDL 56 in 04/03. 4. Prior CVA: Continue therapy with ASA and crestor. 5. Peripheral vascular occlusive disease: Continue therapy with ASA and crestor. Magdaleno Escamilla MD Referring Provider: SELF [[id number]] Allergies As of Date: 05/25/2018 Noted Allergy Reaction LIPITOR (ATORVASTATIN CALCIUM) 01/07/2015 15 - Contraindication- Medical Olsen* Comments: Elevated LFTs and elevated CK level METFORMIN 03/01/2013 6 - Diarrhea Date Reviewed: 05/25/2018 Reviewed by: Magdaleno Escamilla - Fully Assessed Reason for Visit: New Patient Evaluation [[id number]] Cmt: referred by Dr Zhu s/p CABG Reason For Visit History Recorded Primary Visit Diagnosis:Hx of CABG [Z95.1] Other Visit Diagnoses:Small vessel disease [I99.9] Mixed hyperlipidemia [E78.2] Coronary artery disease involving [place] coronary artery of [place] heart without angina pectoris [I25.10] NSTEMI (non-ST elevated myocardial infarction) (HCC) [I21.4] Order(s):amLODIPine (NORVASC) 5 mg tabletTake 1 tablet by mouth once daily.Disp: 90 tabletRfl: 3 lisinopril 2.5 mg tabletTake 1 tablet by mouth once daily.Disp: 90 tabletRfl: 3 BASIC METABOLIC PNL [SQBMP] Order #: [id number] FUTURE ECHO [[id number]] Order #: [id number]: 1 FUTURE CONSULT TO CARD REHAB PHASE II [] Order #: [id number]: 1 Prescriptions as of 05/25/2018 Sig: SANTYL 250 UNIT/GRAM TOPICAL * Apply once daily INSULIN LISPRO (U-100) 100 UN* INJECT 12 TO 20 UNITS SUBCUTA* INSULIN GLARGINE (U-100) 100 * INJECT 20 UNITS SUBCUTANEOUSL* PEN NEEDLE, DIABETIC 31 GAUGE* USE TO GIVE INSULIN INJECTION* BASAGLAR KWIKPEN U-100 INSULI* INJECT 20 UNITS SUBCUTANEOUSL* HUMALOG KWIKPEN (U-100) INSUL* INJECT 12 TO 20 UNITS SUBCUTA* FUROSEMIDE 20 MG TABLET TAKE 1 TABLET BY MOUTH ONCE D* COMPOUNDED PRESCRIPTION Referral: wound clinic, [place]* ROSUVASTATIN 10 MG TABLET Take 1 tablet by mouth every * METOPROLOL TARTRATE 25 MG TAB* Take 0.5 tablets by mouth abdiaziz* ASPIRIN 81 MG CHEWABLE TABLET 2 tablets by ORAL/FEEDING TUB* GABAPENTIN 300 MG CAPSULE Take 3 capsules by mouth ever* SILVER SULFADIAZINE 1 % TOPIC* Apply 1 application to affect* NORTRIPTYLINE 50 MG CAPSULE TAKE ONE CAPSULE BY MOUTH ONC* CHOLECALCIFEROL (VITAMIN D3) * Take 1 capsule by mouth once * CETIRIZINE 10 MG TABLET TAKE ONE TABLET BY MOUTH ONCE* TADALAFIL 20 MG TABLET Take 1 tablet by mouth once d* BLOOD SUGAR DIAGNOSTIC STRIPS Check blood glucose three georgie* FREESTYLE LANCETS 28 GAUGE USE DIRECTED 3 TO 4 TIMES * BACLOFEN 20 MG TABLET Take 20 mg by mouth three georgie* BLOOD-GLUCOSE METER KIT Freestyle LITE Meter Kit - Dx* AMLODIPINE 5 MG TABLET Take 1 tablet by mouth once d* LISINOPRIL 2.5 MG TABLET Take 1 tablet by mouth once d* Problem List As Of Date 05/25/2018 Noted Resolved Diabetes 1.5, 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 Hyperlipidemia [E78.5] INVALID FOR* Priority: E More... Diabetes type 2, controlled [E11.9] INVALID FOR* Lower back pain [M54.5] INVALID FOR* Priority: D More... Hearing loss [H91.90] INVALID FOR* Dizziness [R42] INVALID FOR* Other musculoskeletal symptoms referable to mixon*INVALID FOR* Hereditary and idiopathic peripheral neuropathy*INVALID FOR* Vitamin B12 deficiency [E53.8] INVALID FOR* PAD (peripheral artery disease) ([facility]) [I73.9] INVALID FOR* Priority: C Small vessel disease ([facility]) [I99.9] INVALID FOR* DM (diabetes mellitus), type 2 with neurologica*INVALID FOR* Priority: E More... Diabetes mellitus with background retinopathy (*INVALID FOR*07/13/2016 Type 1 diabetes mellitus with mild nonprolifera*INVALID FOR*06/08/2016 Other vitreous opacities - Both Eyes [H43.399] INVALID FOR* Lens replaced by other means - Both Eyes [Z96.1]INVALID FOR*07/13/2016 CVA (cerebral vascular accident) ([facility]) [I63.9] INVALID FOR* Type 2 diabetes, controlled, with neuropathy (H*INVALID FOR* Type 2 diabetes mellitus with diabetic neuropat*INVALID FOR*01/29/2016 Type 2 diabetes mellitus with diabetic polyneur*INVALID FOR* After-cataract obscuring vision [H26.499] INVALID FOR* Pseudophakia of both eyes [Z96.1] INVALID FOR* Hyperopia [H52.00] INVALID FOR* Astigmatism, regular [H52.229] INVALID FOR* Vitreous floaters of both eyes [H43.393] INVALID FOR* Meibomian gland dysfunction (MGD) of upper and *INVALID FOR* NSTEMI (non-ST elevated myocardial infarction) *INVALID FOR* Priority: C More... Coronary artery disease involving [place] ricardo*INVALID FOR* Priority: A More... C. difficile colitis [A04.72] INVALID FOR* Priority: I More... More... Nicotine use disorder, F17.2 [F17.200] INVALID FOR* Priority: B More... Hypotension [I95.9] INVALID FOR*04/14/2018 Priority: C More... Cardiac insufficiency (HCC) [I50.9] INVALID FOR*04/14/2018 Priority: C More... Atelectasis [J98.11] INVALID FOR* Priority: B More... Post-operative pain [G89.18] INVALID FOR* Priority: D More... Depression [F32.9] INVALID FOR* Priority: D More... Transition of care performed with sharing of cl*INVALID FOR* Priority: Moderate More... Bilateral pneumothoraces [J93.9] INVALID FOR* Priority: B More... Discharge planning issues [Z02.9] INVALID FOR* More... Weight gain [R63.5] INVALID FOR* Decubitus ulcer of right heel [L89.619] INVALID FOR* History of sternectomy [Z98.890] INVALID FOR* Hx of CABG [Z95.1] INVALID FOR* Skin wound from surgical incision [T14.8XXA] INVALID FOR* Localized bacterial infection of skin [L08.9, B*INVALID FOR* Other instructions from your clinician: Coronary Artery Disease View image View image What is coronary artery disease? Coronary artery disease (CAD) is a type of heart disease caused by a problem with the blood vessels that bring blood and oxygen to the heart muscle. These arteries are called the coronary arteries. This disease increases your risk for heart attack and sudden . What is the cause? Fatty deposits called plaque may build up in blood vessels and make them narrower. The narrowing decreases the amount of blood flow to the heart. Plaque also increases the chance that blood clots may form and block a blood vessel, which can cause a heart attack or stroke. Your risk for CAD may be higher if you: ? Have a family history of coronary artery disease at an early age ? Smoke ? Have high blood pressure ? Have diabetes ? Are very overweight ? Don?t get enough exercise ? Have high levels of blood fat--for example, high cholesterol What are the symptoms? Coronary artery disease may not cause any symptoms. When there are symptoms, the most common one is chest pain, called angina. You may feel: ? A feeling of tightness or heaviness in the chest ? Squeezing, pressure, or burning in the chest Angina symptoms usually: ? Last for 5 minutes or less and go away with rest or medicine such as nitroglycerin. ? Happen when the heart has to work harder, such as after a heavy meal or during physical activity or emotional stress. Angina may also happen when you are resting. Call 911 for emergency help right away if you have symptoms of a heart attack. The most common symptoms include: ? Chest pain or pressure, squeezing, or fullness in the center of your chest that lasts more than a few minutes, or goes away and comes back (may feel like indigestion or heartburn) ? Pain or discomfort in one or both arms or shoulders, or in your back, neck, jaw, or stomach ? Trouble breathing ? Breaking out in a cold sweat for no known reason ? If your provider has prescribed nitroglycerin for angina, pain that does not go away after taking your nitroglycerin as directed Along with these symptoms, you may also feel very tired, faint, or be sick to your stomach. How is it diagnosed? Your healthcare provider will ask about your symptoms and medical history and examine you. Tests may include: ? Blood tests ? An ECG (also called an EKG or electrocardiogram), which measures and records your heartbeat. ? An exercise treadmill test to see how your heart works when you exercise ? An echocardiogram, which uses sound waves (ultrasound) to see how well your heart is pumping ? Angiogram, which is a series of X-rays taken after your healthcare provider injects a special dye into your blood vessels to show the fernandez of the arteries and any blockage ? CT scan, which uses X-rays and a computer to show detailed pictures of the arteries How is it treated? Your treatment depends on many factors, such as your age, heart muscle function, and other health problems. At first, treatment may include diet changes and an exercise program. Your healthcare provider may prescribe medicine. ? Many people need to take 2 or more medicines to help prevent a heart attack or stroke. It may take several weeks or months to find the best treatment for you. ? Your provider may also prescribe other types of medicine to lower blood pressure, help stop chest pain, control an irregular heartbeat, help prevent blood clots, or lower blood fat (cholesterol). Your provider may recommend a daily low dose of aspirin. Taking an aspirin every day may lower your risk for a heart attack or stroke. Not everyone should take aspirin. Daily use of aspirin can cause problems, such as stomach irritation, bleeding, and hearing loss. Ask your healthcare provider if you should take aspirin and if so, how much to take. If your coronary arteries are badly blocked, you may need balloon angioplasty or bypass surgery. ? A balloon angioplasty opens blocked blood vessels and improves blood flow. A metal mesh device called a stent is usually left in the blood vessels to help keep them open. ? Bypass surgery uses blood vessels from other parts of the body, or manmade material, to make a new path around a blocked area. How can I take care of myself? If you have coronary artery disease, there are things you can do to take care of yourself now and prevent problems in the future. ? Follow your provider's advice about activity, exercise, medicine, and follow-up visits. ? Lower the amount of salt, saturated and trans fats, and cholesterol in your diet. ? Work with your healthcare provider to control diabetes, blood pressure, or other health problems you may have. ? Try to keep a healthy weight. If you are overweight, talk to your provider about ways to lose weight. ? If you smoke, try to quit. Talk to your healthcare provider about ways to quit smoking. ? Ask your healthcare provider: o How and when you will hear your test results o How long it will take to recover o What activities you should avoid and when you can return to your normal activities o How to take care of yourself at home o What symptoms or problems you should watch for and what to do if you have them ? Make sure you know when you should come back for a checkup. How can I help prevent coronary artery disease? You can prevent this disease with a heart-healthy lifestyle: ? Eat a healthy diet and keep a healthy weight. ? Stay fit with the right kind of exercise for you. ? Find ways to manage stress. ? Don?t smoke. ? Limit your use of alcohol. Talk to your healthcare provider about your personal and family medical history and your lifestyle habits. This will help you know what you can do to lower your risk for coronary artery disease. If you have a strong family history of CAD, a healthy lifestyle may slow the start of the disease and maybe even keep you from getting it. However, you must have regular checkups to keep a close watch on the health of your heart. Developed by [employer]. Published by [employer]. Copyright ?2014 [employer] and/or one of its subsidiaries. All rights reserved. Visit Notes: >> Rachelle (Juana) Surjit Anuradha May 25, 2018 1:08 PM Status: Signed Patient referred by surgeon Dr Zhu s/p CABG. Patient has no cardiac complaints today. Rachelle Eddy [facility] Prescriptions ordered this encounter Disp Refills Start End AMLODIPINE 5 MG TABLET 90 t* 3 05/25/2018 Route: ORAL Sig: Take 1 tablet by mouth once daily. LISINOPRIL 2.5 MG TABLET 90 t* 3 05/25/2018 Route: ORAL Sig: Take 1 tablet by mouth once daily. Medications Discontinued During This Encounter therapeutic multivitamin (THERA RACHEL* 04/20/2018 05/25/2018 Class: OTC Route: ORAL Sig: Take 1 tablet by mouth daily with breakfast. Patient not taking: Reported on 05/25/2018 Disc: Course of therapy completed senna-docusate (SENNA-S) 8.6-50 mg p* 30 t* 0 04/19/2018 05/25/2018 Route: ORAL Sig: Take 1 tablet by mouth twice daily. Patient not taking: Reported on 05/25/2018 Disc: Course of therapy completed acetaminophen (TYLENOL) 325 mg tablet 100 * 0 04/19/2018 05/25/2018 Route: ORAL/FEEDING TUBE Si tablets by ORAL/FEEDING TUBE route every 4 hours as needed. Patient not taking: Reported on 05/25/2018 Disc: Course of therapy completed diflorasone 0.05 % cream 60 g 1 05/15/2018 05/25/2018 Cmt: Please consider 90 day supplies to promote better adherence Sig: APPLY CREAM TO AFFECTED AREA TWICE DAILY NEEDED FOR RASH Patient not taking: Reported on 05/25/2018 Disc: Course of therapy completed ydundberr-B2-ltN16-algal oil (METANX* 90 c* 3 05/19/2018 05/25/2018 Route: ORAL Sig: Take 1 capsule by mouth once daily. Patient not taking: Reported on 05/25/2018 Disc: Course of therapy completed amLODIPine (NORVASC) 5 mg tablet 30 t* 5 05/19/2018 05/25/2018 Route: ORAL Sig: Take 1 tablet by mouth once daily. Patient not taking: Reported on 05/25/2018 Disc: Course of therapy completed Disposition: Return in about 6 months (around 11/25/2018). Follow-up and Disposition History Recorded Encounter Status:Closed by MAGDALENO ESCAMILLA on 05/25/18 WOUND CTR HISTORY Observed: 05/24/2018 Status: F Source: DAVIE AND PHYSICAL 7:04 PM [facility] REPOSITORY [facility] [address] [place] [address] Wound Ctr History AND Physical 05/24/18 1325 MR#: [id number] Acct: [id number] Name: RICK GEORGE Rep #: [id number] : 1960 58 From: Mary Kay Vance MD PCP: Avery Fischer DO Status: REG RCR Y Location: WC (1) Nonhealing nonsurgical wound with fat layer exposed Status: Acute Current Visit: Yes Code(s): T14.8XXA - Other injury of unspecified body region, initial encounter (2) Diabetes mellitus type 2 with complications Status: Chronic Current Visit: Yes Code(s): E11.8 - Type 2 diabetes mellitus with unspecified complications (3) Ulcer of right foot with fat layer exposed Status: Resolved Current Visit: No Code(s): L97.512 - Non-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ulcer of other part of right foot with fat layer exposed History of Present Illness Date of Service: 05/24/18 Chief Complaint: Nonhealing postsurgical chest wound. History of Wound: Mr. George is a 58-year-old with past medical history as stated above who is well-known to the wound center. He was last seen here about 6 weeks ago when he was being managed for his right foot wound and hand ulcers. He however had CABG done due to an NSTEMI about 5 weeks ago. He now presents with nonhealing of the tube site and postsurgical incision site. He has applied ? Ointment given by his physician however, he has not noted any significant improvement in the wounds and so he presented here. He also attests to purulent discharge from his lateral chest wound. He has been on antibiotics with his last dose on Tuesday prior to presentation. He otherwise denies chills, fever or feeling of unwell. He is scheduled to follow-up with his cardiothoracic surgeon at the [facility] tomorrow. Past Medical History Past Medical History: Chronic Problems (Last Reviewed 11/01/17 @ 16:03 by Wilmer Cartwright) Other specified peripheral vascular diseases (Chronic) Xerosis of skin (Chronic) Non-compliance (Chronic) Skin ulcer of finger with fat layer exposed (Chronic) Right Index Finger 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) Hypertension (Chronic) Neuropathy (Chronic) Most likely severe diabetic neuropathy Workup f [facility] Cerebrovascular disease (Chronic) Right thalamic stroke Surgical History: - - Toe amputations RLE Allergies/Adverse Reactions: Allergies atorvastatin Adverse Reaction (Verified 04/01/18 12:16) Unknown metformin Adverse Reaction (Verified 04/01/18 12:16) Diarrhea Home Medications: Ambulatory Orders Medication Instructions Recorded Tizanidine HCl [Zanaflex] 4 mg PO 4X/DAY PRN PRN 11/07/14 Ammonium Lactate [Amlactin] 57 gm TP PRN PRN 10/04/17 - Family History Maternal Family History: Family History (Last Reviewed 11/01/17 @ 16:03 by Wilmer Cartwright) Other Arthritis Hypertension Diabetes Paternal Family History: Family History (Last Reviewed 11/01/17 @ 16:03 by Wilmer Cartwright) Other Arthritis Hypertension Diabetes Smoking Status: Never smoker Review of Systems Constitutional: Denies: Anorexia, Chills, Fever Eyes: Denies: Blurred vision, Pain, Redness HEENT: Denies: Difficulty Hearing, Difficulty Swallowing Cardiovascular: Denies: Chest Pain, Palpitations Respiratory: Denies: Hemoptysis Gastrointestinal: Denies: Abdominal Pain, Hematemesis, Vomiting Genitourinary: Denies: Hematuria Skin: Denies: Jaundice - Physical Exam Vital Signs Temp Pulse Resp BP 97.8 F 79 14 105/61 05/24/18 11:44 05/24/18 11:44 05/24/18 11:44 05/24/18 11:44 General: Alert, Oriented x3, Cooperative, No apparent distress HEENT: Atraumatic Oral: Moist Mucosa Neck: Supple Lungs: Normal air movement Cardiovascular: Regular rate Abdomen: Non Tender Extremities: No cyanosis Skin: Ulcer/ Wound Wound Measurements and Assessment WC - Nurse 1 - General Ulcer Measurement Start: 05/24/18 11:44 Freq: Status: Active Protocol: Activity Type Activity Date Activity User E-Sign Co-Sign Detail Recorded Client Recorded Date Recorded By Document 05/24/18 11:44 CS [id number] 05/24/18 11:59 CS Wound Center Nurse 1 [Ulcer Assessment] #10 LEFT LOWER MIDCLAVICULAR POST OP -Combined with other wound No -Current Size (cm) - Length 0.1 WC - Nurse 2 - General Ulcer CM Notes Start: 05/24/18 11:44 Freq: Status: Active Protocol: Activity Type Activity Date Activity User E-Sign Co-Sign Detail Recorded Client Recorded Date Recorded By Document 05/24/18 12:17 MW [id number] 05/24/18 12:31 MW Wound Center Nurse 2 [Procedure/Treatment] Musculoskeletal: No Muscle Wasting Neurological: Cranial nerves II-XII grossly intact Psych/Mental Status: Normal Affect Debridement Note Post-Debridement Measurements/Treatment WC - Nurse 2 - General Ulcer CM Notes Start: 05/24/18 11:44 Freq: Status: Active Protocol: Activity Type Activity Date Activity User E-Sign Co-Sign Detail Recorded Client Recorded Date Recorded By Document 05/24/18 12:17 MW [id number] 05/24/18 12:31 MW Wound Center Nurse 2 #10 LEFT LOWER MIDCLAVICULAR POST OP -Time 12:27 -Correct Patient Yes Wound debrided: Mid sternal Wound Grade/Stage: Grade II Type of Debridement: Excisional debridement Anesthesia Used: 4% Lidocaine Solution Depth: Down to and including healthy tissue, in the subcutaneous layer Percentage of wound debrided: 100 Instrument Used: 5mm curette Tissue Removed: Slough and devitalized tissue Severity: Fat Layer Exposed Amount of bleeding with debridement: Mild Bleeding Controlled with: Pressure Patient tolerated procedure well - Additional Wound Wound debrided: Midclavicular (inferior) Wound Grade/Stage: Stage II Type of Debridement: Excisional debridement Anesthesia Used: 4% Lidocaine Solution Depth: Down to and including healthy tissue, in the subcutaneous layer Percentage of wound debrided: 100 Instrument Used: 5mm curette Tissue Removed: Slough and devitalized tissue Severity: Fat Layer Exposed Amount of bleeding with debridement: Mild Bleeding Controlled with: Pressure Patient tolerated procedure: Patient tolerated procedure well Assessment/Plan Active Problems (Last Reviewed 11/01/17 @ 16:03 by Wilmer Cartwright) Nonhealing nonsurgical wound with fat layer exposed (Acute) Diabetes mellitus type 2 with complications (Chronic) Assessment: Nonhealing post surgical chest wounds. Right Middle and Ring finger ulcers with Fat layer exposed - Healed. Right Index finger ulcer possible due to vasoconstriction/raynaud's - Healed. Right Foot traumatic wound/ulcer with fat layer exposed -Healed. Plan: He presents with new nonhealing postsurgical wounds as detailed above. His right foot and hand ulcers have now healed. ? Suture material removed from midsternal wound. Left midclavicular wound concerning for infection due to purulent drainage noted. Culture taken. Debridement done as documented above, procedure was well-tolerated. Due to still significant slough, will start with Santyl. Apply nickel thick amount daily cover with gauze. Scheduled to follow-up with his cardiothoracic surgeon tomorrow. Increased protein intake/supplements also recommended. Optimal blood sugar control recommended. Advised to follow-up with PCP. 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 He was advised to call with any questions or concerns. This note was generated with [employer]ation software. It may contain incorrect words, spelling, and punctuation that were not noted in checking the note before signing. 05/24/18 1904 <Electronically signed by Mary Kay Vance MD> Date Mary Kay Vance MD CC: Signed Observed: 05/24/2018 Status: F Source: DAVIE CULTURE, DEEP WOUND 12:25 PM [facility] REPOSITORY Comments: L LOWER MIDCLAVICULAR ULCER. Gram Stain Gram Stain Rare White Blood Cells Rare Gram positive cocci Wound Culture ORGANISM 1: Staphylococcus aureus Amount Growth Rare ORGANISM 2: Staphylococcus epidermidis Amount Growth 3+ Staphylococcus aureus: REACTION Benzylpenicillin NF 0.06 R Cefoxitin *NF - Clindamycin $$ <=0.25 S Inducable Clindamycin Resistan - Erythromycin $ <=0.25 S Gentamicin $ <=0.5 S Levofloxacin $ 0.25 S Linezolid $$$$ 2 S Moxifloxicin *NF <=0.25 S Oxacillin NF 0.5 S Tigecycline $$$$ <=0.12 S Rifampin $$ <=0.5 S Tetracycline NF <=1 S Trimethoprim/Sulfametho $ <=10 S Vancomycin $ 1 S (NF) indicates non-formulary drug at [facility]. Approval by Infectious Disease Specialist required before non-formulary drugs may be ordered and/or dispensed. * CLSI guidelines does not recommend testing of cephalosporins. This interpretation is deduced from Beta-lactam/penicillin results. Staphylococcus epidermidis: REACTION Benzylpenicillin NF 0.12 R Cefoxitin *NF + Clindamycin $$ >=8 R Inducable Clindamycin Resistan - Erythromycin $ <=0.25 S Gentamicin $ <=0.5 S Levofloxacin $ <=0.12 S Linezolid $$$$ 1 S Oxacillin NF >=4 R Tigecycline $$$$ <=0.12 S Rifampin $$ <=0.5 S Tetracycline NF <=1 S Vancomycin $ 2 S (NF) indicates non-formulary drug at [facility]. Approval by Infectious Disease Specialist required before non-formulary drugs may be ordered and/or dispensed. * CLSI guidelines does not recommend testing of cephalosporins. This interpretation is deduced from Beta-lactam/penicillin results. Cult, Anaerobic No anaerobic bacteria isolated. Performed By: #### [id number] #### [facility] [address] [place], [address] PROGRESS Observed: 05/12/2018 Status: COMPLETED Source: GERALDINE 7:01 AM [facility] REPOSITORY HNO ID: [id number] Author: Avery Escalante Service: (none) Author Type: Physician Type: Progress Notes Filed: 05/12/2018 7:11 AM Note Text: Patient presents with: Follow Up: 3 months HPI: Rick George Jr. is a 58 year old male who presents to the office today for review of health conditions. Concerns today: About 4 weeks out from multivessel CABG surgery after presenting to [facility] for fatigue and left rib pain after baling hay, was found to have critical stenosis of LAD and several other arteries, was transported up to [facility] and had bypass surgery performed. He is overall doing well after surgery. Diagnosed with C difficile colitis and is starting on Flagyl, had been treated with oral vancomycin the 1st time but was 3-4 tablets short of full course of treatment due to insurance coverage issues. 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 Has had some poor healing of inferior sternal incision and chest tube area on left. Also continues to have right heel scab and concerned for continued ulceration. Hasn't seen [facility] wound care recently. Asking for referral at this time Will have follow up with cardiothoracic surgeon in 1-2 weeks. Denies any CP or dyspnea, is trying to walk a [place] No fevers or chills. Denies depressed mood. Mr. George has past history of diabetes. Since our last visit he denies excessive thirst or increased frequency of urination, chest pain or dyspnea , new or unusual visual symptoms and low sugar/hypoglycemic reactions. Follows a diabetic diet most of the time. He is compliant with medication(s) and is tolerating med(s) without any side effects. He reports checking his glucose on a once a day schedule with sugars in the <150 range. Patient's last HgA1C was Hemoglobin A1C (%) Date Value 04/04/2018 5.7 01/25/2018 6.1 ) Last Ophthalmology exam was within the past 12 months Mr. George reports history of hyperlipidemia. Current therapy includes rosuvastatin (Crestor) 10 mg. Denies side effects of muscle weakness or achiness. His most recent lipid panels are reviewed. Cholesterol, Total (mg/dL) Date Value 04/04/2018 92 HDL Cholesterol (mg/dL) Date Value 04/04/2018 24 LDL Cholesterol (mg/dL) Date Value 04/04/2018 56 Triglyceride (mg/dL) Date Value 04/04/2018 58 Mr. George indicates a history of hypertension and states that he is feeling well and denies any symptoms referable to elevated blood pressure. Specifically denies headache, chest pain, palpitations, dyspnea and peripheral edema. Patient denies any side effects of his medication(s) and is compliant with their regimen. Last 3 Encounter BP Readings: Date: BP: 05/10/2018 110/70 05/08/2018 120/80 05/03/2018 120/90 He watches his diet for sodium, low fat and low cholesterol some of the time. He does not check BP's generally. Rick likes to exercise by walking. PAST MEDICAL HISTORY Diagnosis Date - Cataract b/l, eye exam 05/29/13 - CTS (carpal tunnel syndrome) 10/2013 b/l, chronic, Dr. 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 Mazin Hinojosa Neuro, likely from DM and Vitamin B12 defic - Stroke ([facility]) 10/01/13 - Ulnar neuropathy 10/2013 b/l, chronic, Dr. Mazin Hinojosa EMG - Vitamin D deficiency 11/2013 PAST SURGICAL HISTORY Procedure Laterality Date - DISCISSION,2ND CATARACT,LASER 06/07/2013 Yag Capsulotomy-Right eye - LASER, SECONDARY CATARACT 2006 OU - PAST SURGICAL HISTORY OF 02/2013 Amputation Right Gt toe Social History Marital status: Domestic Partner Spouse name: Years of education: Number of children: 3 Occupational History Occupation Employer Comment [employer] Social History Main Topics Smoking status: Never Smoker Smokeless tobacco: Former User Types: Chew Alcohol use: Yes 12.0 oz/week Cans of Beer (12oz): 8 per week Comment: 1-2 per day Drug use: No Sexual activity: Yes Partners with: Female FAMILY HISTORY Problem Relation Age of Onset - Diabetes Mother - Heart Father Allergies: ALLERGIES Allergen Reactions - Lipitor [Atorvastat* Contraindication-Medical Surgical Elevated LFTs and elevated CK level - Metformin Diarrhea Current Meds: rosuvastatin (CRESTOR) 10 mg tablet Take 1 tablet by mouth every 48 hours. metoprolol tartrate, short acting, (LOPRESSOR) 25 mg tablet Take 0.5 tablets by mouth every 12 hours. aspirin 81 mg chewable tablet 2 tablets by ORAL/FEEDING TUBE route once daily. gabapentin (NEURONTIN) 300 mg capsule Take 3 capsules by mouth every 8 hours for 30 days. metroNIDAZOLE (FLAGYL) 500 mg tablet Take 1 tablet by mouth three times daily for 10 days. silver sulfADIAZINE (SSD) 1 % cream Apply 1 application to affected area once daily. nortriptyline (PAMELOR) 50 mg capsule TAKE ONE CAPSULE BY MOUTH ONCE DAILY AT BEDTIME Cholecalciferol, Vitamin D3, 5,000 unit cap Take 1 capsule by mouth once daily. cetirizine (ZYRTEC) 10 mg tablet TAKE ONE TABLET BY MOUTH ONCE DAILY acetaminophen (TYLENOL) 325 mg tablet 2 tablets by ORAL/FEEDING TUBE route every 4 hours as needed. therapeutic multivitamin (THERA VITAMIN) tablet Take 1 tablet by mouth daily with breakfast. Tadalafil (CIALIS) 20 mg tab(s) Take 1 tablet by mouth once daily. blood sugar diagnostic (FREESTYLE LITE STRIPS) test strip Check blood glucose three times daily. Dx: E11.42, Insulin dependent BASAGLAR KWIKPEN U-100 INSULIN 100 unit/mL (3 mL) inpn INJECT 20 UNITS SUBCUTANEOUSLY ONCE DAILY AT BEDTIME HUMALOG KWIKPEN 100 unit/mL inpn INJECT 12 TO 20 UNITS SUBCUTANEOUSLY WITH MEALS DIRECTED insulin needles, DISPOSABLE, (BD INSULIN PEN NEEDLE UF) 31 gauge x 5/16 ndle USE TO GIVE INSULIN INJECTIONS 4 TIMES DAILY FREESTYLE LANCETS 28 gauge misc USE DIRECTED 3 TO 4 TIMES DAILY TO TEST BLOOD GLUCOSE baclofen (LIORESAL) 20 mg tablet Take 20 mg by mouth three times daily. Blood-Glucose Meter (FREESTYLE LITE METER) monitoring kit Freestyle LITE Meter Kit - Dx: Type 2 DM - Controlled E11.9 cephALEXin (KEFLEX) 500 mg capsule Take 1 capsule by mouth four times daily for 10 days. COMPOUNDED PRESCRIPTION Referral: wound clinic, [facility] furosemide (LASIX) 20 mg tablet Take 1 tablet by mouth once daily. oxyCODONE IR (ROXICODONE) 5 mg immediate release tablet 1 tablet by ORAL/FEEDING TUBE route every 6 hours as needed for up to 7 days. senna-docusate (SENNA-S) 8.6-50 mg per tablet Take 1 tablet by mouth twice daily. Review of Systems: The remainder of the review of systems is negative. PE: 05/10/18 1231 BP: 110/70 Pulse: 80 Resp: 16 Temp: 36.2 ?C (97.2 ?F) TempSrc: Left Tympanic Weight: 90.7 kg (200 lb) Gen: AANDO, NAD, non-toxic appearing, Pleasant, cooperative HEENT: NT/AC, PERRLA, EOMs intact b/l, nares clear and patent b/l, pharynx without erythema, exudate or lesions. Uvula midline. MMM Neck: supple, No cervical LAD, no thyromegaly, no carotid bruits CV: RRR, normal S1 and S2, 2/6 HSM RUSB murmurs, no gallops, no rubs, Pulses 2+ and symmetric in UE and LE b/l Lungs: normal respiratory effort, CTA b/l, no wheezing or rhonchi or rales Poor healing inferior area of sternal incision with yellow fibrinous material present as well as poor healing of left chest wall tube with surrounding erythema that extends 5-6 mm from area of chest tube and inferior sternal incision Abd: soft, NT, ND, +BS, no hepatosplenomegaly MS: peripheral atrophy hands and less active ROM and use of hands and arms Legs also with atrophy changes Mild trace right lower leg >left lower leg edema Neuro: CN II-XII intact b/l, strength 5/5 b/l UE and LE, DTRs 2/4 UE and LE, sensation intact. Skin: warm, dry, intact, see above Foot exam: right heel scab/ulceration without signs of infection ASSESSMENT/PLAN: 1. Localized bacterial infection of skin - ICD9: 686.9, 041.9, ICD10: L08.9, B96.89 (primary diagnosis) - Begin treatment with Cephalaxin (Keflex) - CEPHALEXIN 500 MG CAPSULE 2. C. difficile colitis - ICD9: 008.45, ICD10: A04.72 - f/u with treatment with Flagyl, will need repeat testing after completed course, secondary to recent surgery and abx 3. Skin wound from surgical incision - ICD9: 879.8, ICD10: T14.8XXA - see above, will need to f/u with CTS and wound care as d/w him today - COMPOUNDED PRESCRIPTION 4. Hx of CABG - ICD9: V45.81, ICD10: Z95.1 - see above - COMPOUNDED PRESCRIPTION 5. History of sternectomy - ICD9: V15.29, ICD10: Z98.890 - see above - COMPOUNDED PRESCRIPTION 6. Decubitus ulcer of right heel, unspecified ulcer stage - ICD9: 707.07, 707.20, ICD10: L89.619 - see above, needs to follow up with wound care. - COMPOUNDED PRESCRIPTION 7. Weight gain - ICD9: 783.1, ICD10: R63.5 - 10 lbs of weight gain since surgery, trace leg edema, 5- 7 days of lasix until sees CTS as d/w him today - FUROSEMIDE 20 MG TABLET 8. Post-operative pain - ICD9: 338.18, ICD10: G89.18 - see above, secondary to sternotomy incision and recent CABG - OXYCODONE 5 MG TABLET 9. Coronary artery disease involving [place] coronary artery of [place] heart with unstable angina pectoris (HCC) - ICD9: 414.01, 411.1, ICD10: I25.110 - see above, f/u with CTS and statement processor - ROSUVASTATIN 10 MG TABLET - METOPROLOL TARTRATE 25 MG TABLET 10. NSTEMI (non-ST elevated myocardial infarction) (HCC) - ICD9: 410.70, ICD10: I21.4 - see above 11. DM (diabetes mellitus), type 2 with neurological complications (HCC) - ICD9: 250.60, ICD10: E11.49 Controlled. - Continue current medications Avery Escalante DO To ER if develops chest pain, shortness of breath, or severe worsening of symptoms. Discussed risks, benefits, alternatives, and potential side effects of medications. Patient expressed understanding and agreed with the plan. Avery Escalante DO [address] [place] [address] CNOV Observed: 05/10/2018 Status: COMPLETED Source: [facility] 12:20 PM [facility] REPOSITORY Office Visit (FAMPWS) RICK GEORGE JR. ([id number]) 1960 M Date Time Provider Department 05/10/18 12:20 PM AVERY ESCALANTE FAMPWS During your visit today, we recorded the following information about you: Temperature Pulse Respiration Blood pressure 97.2 degrees 80/minute 16/minute 110/70 Weight 90.7 kg Avery Escalante, 05/10/2018 1:14 PM Signed Limit 68 oz of water a day Avery Escalante DO 05/12/2018 7:11 AM Signed Patient presents with: Follow Up: 3 months HPI: Rick George Jr. is a 58 year old male who presents to the office today for review of health conditions. Concerns today: About 4 weeks out from multivessel CABG surgery after presenting to [facility] for fatigue and left rib pain after baling hay, was found to have critical stenosis of LAD and several other arteries, was transported up to [facility] and had bypass surgery performed. He is overall doing well after surgery. Diagnosed with C difficile colitis and is starting on Flagyl, had been treated with oral vancomycin the 1st time but was 3-4 tablets short of full course of treatment due to insurance coverage issues. 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 Has had some poor healing of inferior sternal incision and chest tube area on left. Also continues to have right heel scab and concerned for continued ulceration. Hasn't seen [facility] wound care recently. Asking for referral at this time Will have follow up with cardiothoracic surgeon in 1-2 weeks. Denies any CP or dyspnea, is trying to walk a [place] No fevers or chills. Denies depressed mood. Mr. George has past history of diabetes. Since our last visit he denies excessive thirst or increased frequency of urination, chest pain or dyspnea , new or unusual visual symptoms and low sugar/hypoglycemic reactions. Follows a diabetic diet most of the time. He is compliant with medication(s) and is tolerating med(s) without any side effects. He reports checking his glucose on a once a day schedule with sugars in the <150 range. Patient's last HgA1C was Hemoglobin A1C (%) Date Value 04/04/2018 5.7 01/25/2018 6.1 ) Last Ophthalmology exam was within the past 12 months Mr. George reports history of hyperlipidemia. Current therapy includes rosuvastatin (Crestor) 10 mg. Denies side effects of muscle weakness or achiness. His most recent lipid panels are reviewed. Cholesterol, Total (mg/dL) Date Value 04/04/2018 92 HDL Cholesterol (mg/dL) Date Value 04/04/2018 24 LDL Cholesterol (mg/dL) Date Value 04/04/2018 56 Triglyceride (mg/dL) Date Value 04/04/2018 58 Mr. George indicates a history of hypertension and states that he is feeling well and denies any symptoms referable to elevated blood pressure. Specifically denies headache, chest pain, palpitations, dyspnea and peripheral edema. Patient denies any side effects of his medication(s) and is compliant with their regimen. Last 3 Encounter BP Readings: Date: BP: 05/10/2018 110/70 05/08/2018 120/80 05/03/2018 120/90 He watches his diet for sodium, low fat and low cholesterol some of the time. He does not check BP's generally. Rick likes to exercise by walking. PAST MEDICAL HISTORY Diagnosis Date - Cataract b/l, eye exam 05/29/13 - CTS (carpal tunnel syndrome) 10/2013 b/l, chronic, Dr. 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 Mazin Hinojosa Neuro, likely from DM and Vitamin B12 defic - Stroke ([facility]) 10/01/13 - Ulnar neuropathy 10/2013 b/l, chronic, Dr. Mazin Hinojosa EMG - Vitamin D deficiency 11/2013 PAST SURGICAL HISTORY Procedure Laterality Date - DISCISSION,2ND CATARACT,LASER 06/07/2013 Yag Capsulotomy-Right eye - LASER, SECONDARY CATARACT 2006 OU - PAST SURGICAL HISTORY OF 02/2013 Amputation Right Gt toe Social History Marital status: Domestic Partner Spouse name: Years of education: Number of children: 3 Occupational History Occupation Employer Comment [employer] Social History Main Topics Smoking status: Never Smoker Smokeless tobacco: Former User Types: Chew Alcohol use: Yes 12.0 oz/week Cans of Beer (12oz): 8 per week Comment: 1-2 per day Drug use: No Sexual activity: Yes Partners with: Female FAMILY HISTORY Problem Relation Age of Onset - Diabetes Mother - Heart Father Allergies: ALLERGIES Allergen Reactions - Lipitor [Atorvastat* Contraindication-Medical Surgical Elevated LFTs and elevated CK level - Metformin Diarrhea Current Meds: rosuvastatin (CRESTOR) 10 mg tablet Take 1 tablet by mouth every 48 hours. metoprolol tartrate, short acting, (LOPRESSOR) 25 mg tablet Take 0.5 tablets by mouth every 12 hours. aspirin 81 mg chewable tablet 2 tablets by ORAL/FEEDING TUBE route once daily. gabapentin (NEURONTIN) 300 mg capsule Take 3 capsules by mouth every 8 hours for 30 days. metroNIDAZOLE (FLAGYL) 500 mg tablet Take 1 tablet by mouth three times daily for 10 days. silver sulfADIAZINE (SSD) 1 % cream Apply 1 application to affected area once daily. nortriptyline (PAMELOR) 50 mg capsule TAKE ONE CAPSULE BY MOUTH ONCE DAILY AT BEDTIME Cholecalciferol, Vitamin D3, 5,000 unit cap Take 1 capsule by mouth once daily. cetirizine (ZYRTEC) 10 mg tablet TAKE ONE TABLET BY MOUTH ONCE DAILY acetaminophen (TYLENOL) 325 mg tablet 2 tablets by ORAL/FEEDING TUBE route every 4 hours as needed. therapeutic multivitamin (THERA VITAMIN) tablet Take 1 tablet by mouth daily with breakfast. Tadalafil (CIALIS) 20 mg tab(s) Take 1 tablet by mouth once daily. blood sugar diagnostic (FREESTYLE LITE STRIPS) test strip Check blood glucose three times daily. Dx: E11.42, Insulin dependent ADILENEAR EDIN U-100 INSULIN 100 unit/mL (3 mL) inpn INJECT 20 UNITS SUBCUTANEOUSLY ONCE DAILY AT BEDTIME HUMALOG KWIKPEN 100 unit/mL inpn INJECT 12 TO 20 UNITS SUBCUTANEOUSLY WITH MEALS DIRECTED insulin needles, DISPOSABLE, (BD INSULIN PEN NEEDLE UF) 31 gauge x 5/16 ndle USE TO GIVE INSULIN INJECTIONS 4 TIMES DAILY FREESTYLE LANCETS 28 gauge misc USE DIRECTED 3 TO 4 TIMES DAILY TO TEST BLOOD GLUCOSE baclofen (LIORESAL) 20 mg tablet Take 20 mg by mouth three times daily. Blood-Glucose Meter (FREESTYLE LITE METER) monitoring kit Freestyle LITE Meter Kit - Dx: Type 2 DM - Controlled E11.9 cephALEXin (KEFLEX) 500 mg capsule Take 1 capsule by mouth four times daily for 10 days. COMPOUNDED PRESCRIPTION Referral: wound clinic, [facility] furosemide (LASIX) 20 mg tablet Take 1 tablet by mouth once daily. oxyCODONE IR (ROXICODONE) 5 mg immediate release tablet 1 tablet by ORAL/FEEDING TUBE route every 6 hours as needed for up to 7 days. senna-docusate (SENNA-S) 8.6-50 mg per tablet Take 1 tablet by mouth twice daily. Review of Systems: The remainder of the review of systems is negative. PE: 05/10/18 1231 BP: 110/70 Pulse: 80 Resp: 16 Temp: 36.2 ?C (97.2 ?F) TempSrc: Left Tympanic Weight: 90.7 kg (200 lb) Gen: AANDO, NAD, non-toxic appearing, Pleasant, cooperative HEENT: NT/AC, PERRLA, EOMs intact b/l, nares clear and patent b/l, pharynx without erythema, exudate or lesions. Uvula midline. MMM Neck: supple, No cervical LAD, no thyromegaly, no carotid bruits CV: RRR, normal S1 and S2, 2/6 HSM RUSB murmurs, no gallops, no rubs, Pulses 2+ and symmetric in UE and LE b/l Lungs: normal respiratory effort, CTA b/l, no wheezing or rhonchi or rales Poor healing inferior area of sternal incision with yellow fibrinous material present as well as poor healing of left chest wall tube with surrounding erythema that extends 5-6 mm from area of chest tube and inferior sternal incision Abd: soft, NT, ND, +BS, no hepatosplenomegaly MS: peripheral atrophy hands and less active ROM and use of hands and arms Legs also with atrophy changes Mild trace right lower leg >left lower leg edema Neuro: CN II-XII intact b/l, strength 5/5 b/l UE and LE, DTRs 2/4 UE and LE, sensation intact. Skin: warm, dry, intact, see above Foot exam: right heel scab/ulceration without signs of infection ASSESSMENT/PLAN: 1. Localized bacterial infection of skin - ICD9: 686.9, 041.9, ICD10: L08.9, B96.89 (primary diagnosis) - Begin treatment with Cephalaxin (Keflex) - CEPHALEXIN 500 MG CAPSULE 2. C. difficile colitis - ICD9: 008.45, ICD10: A04.72 - f/u with treatment with Flagyl, will need repeat testing after completed course, secondary to recent surgery and abx 3. Skin wound from surgical incision - ICD9: 879.8, ICD10: T14.8XXA - see above, will need to f/u with CTS and wound care as d/w him today - COMPOUNDED PRESCRIPTION 4. Hx of CABG - ICD9: V45.81, ICD10: Z95.1 - see above - COMPOUNDED PRESCRIPTION 5. History of sternectomy - ICD9: V15.29, ICD10: Z98.890 - see above - COMPOUNDED PRESCRIPTION 6. Decubitus ulcer of right heel, unspecified ulcer stage - ICD9: 707.07, 707.20, ICD10: L89.619 - see above, needs to follow up with wound care. - COMPOUNDED PRESCRIPTION 7. Weight gain - ICD9: 783.1, ICD10: R63.5 - 10 lbs of weight gain since surgery, trace leg edema, 5- 7 days of lasix until sees CTS as d/w him today - FUROSEMIDE 20 MG TABLET 8. Post-operative pain - ICD9: 338.18, ICD10: G89.18 - see above, secondary to sternotomy incision and recent CABG - OXYCODONE 5 MG TABLET 9. Coronary artery disease involving [place] coronary artery of [place] heart with unstable angina pectoris (HCC) - ICD9: 414.01, 411.1, ICD10: I25.110 - see above, f/u with CTS and statement processor - ROSUVASTATIN 10 MG TABLET - METOPROLOL TARTRATE 25 MG TABLET 10. NSTEMI (non-ST elevated myocardial infarction) (HCC) - ICD9: 410.70, ICD10: I21.4 - see above 11. DM (diabetes mellitus), type 2 with neurological complications (HCC) - ICD9: 250.60, ICD10: E11.49 Controlled. - Continue current medications Avery Escalante DO To ER if develops chest pain, shortness of breath, or severe worsening of symptoms. Discussed risks, benefits, alternatives, and potential side effects of medications. Patient expressed understanding and agreed with the plan. Avery Escalante DO [address] [place] [address] Referring Provider: AVERY ESCALANTE [[id number]] Allergies As of Date: 05/10/2018 Noted Allergy Reaction LIPITOR (ATORVASTATIN CALCIUM) 01/07/2015 15 - Contraindication- Medical [facility]* Comments: Elevated LFTs and elevated CK level METFORMIN 03/01/2013 6 - Diarrhea Date Reviewed: 05/10/2018 Reviewed by: Lindsey Cochran LPN - Fully Assessed Reason for Visit: Follow Up [171] Cmt: 3 months Primary Visit Diagnosis:Localized bacterial infection of skin [L08.9, B96.89] Other Visit Diagnoses:C. difficile colitis [A04.72] Skin wound from surgical incision [T14.8XXA] Hx of CABG [Z95.1] History of sternectomy [Z98.890] Decubitus ulcer of right heel, unspecified ulcer stage [L89.619] Weight gain [R63.5] Post-operative pain [G89.18] Coronary artery disease involving [place] coronary artery of [place] heart with unstable angina pectoris (HCC) [I25.110] NSTEMI (non-ST elevated myocardial infarction) (HCC) [I21.4] DM (diabetes mellitus), type 2 with neurological complications (HCC) [E11.49] Order(s):cephALEXin (KEFLEX) 500 mg capsuleTake 1 capsule by mouth four times daily for 10 days.Disp: 40 capsuleRfl: 0 COMPOUNDED PRESCRIPTIONReferral: [facility] EachRfl: 0 furosemide (LASIX) 20 mg tabletTake 1 tablet by mouth once daily.Disp: 7 tabletRfl: 0 oxyCODONE IR (ROXICODONE) 5 mg immediate release tablet1 tablet by ORAL/FEEDING TUBE route every 6 hours as needed for up to 7 days.Disp: 28 tabletRfl: 0 rosuvastatin (CRESTOR) 10 mg tabletTake 1 tablet by mouth every 48 hours.Disp: 15 tabletRfl: 3 metoprolol tartrate, short acting, (LOPRESSOR) 25 mg tabletTake 0.5 tablets by mouth every 12 hours.Disp: 30 tabletRfl: 3 aspirin 81 mg chewable tablet2 tablets by ORAL/FEEDING TUBE route once daily.Disp: 60 tabletRfl: 3 gabapentin (NEURONTIN) 300 mg capsuleTake 3 capsules by mouth every 8 hours for 30 days.Disp: 270 capsuleRfl: 3 Prescriptions as of 05/10/2018 Sig: ROSUVASTATIN 10 MG TABLET Take 1 tablet by mouth every * METOPROLOL TARTRATE 25 MG TAB* Take 0.5 tablets by mouth abdiaziz* ASPIRIN 81 MG CHEWABLE TABLET 2 tablets by ORAL/FEEDING TUB* GABAPENTIN 300 MG CAPSULE Take 3 capsules by mouth ever* METRONIDAZOLE 500 MG TABLET Take 1 tablet by mouth three * SILVER SULFADIAZINE 1 % TOPIC* Apply 1 application to affect* NORTRIPTYLINE 50 MG CAPSULE TAKE ONE CAPSULE BY MOUTH ONC* CHOLECALCIFEROL (VITAMIN D3) * Take 1 capsule by mouth once * CETIRIZINE 10 MG TABLET TAKE ONE TABLET BY MOUTH ONCE* ACETAMINOPHEN 325 MG TABLET 2 tablets by ORAL/FEEDING TUB* THERAPEUTIC MULTIVITAMIN TABL* Take 1 tablet by mouth daily * TADALAFIL 20 MG TABLET Take 1 tablet by mouth once d* BLOOD SUGAR DIAGNOSTIC STRIPS Check blood glucose three georgie* BASAGLAR KWIKPEN U-100 INSULI* INJECT 20 UNITS SUBCUTANEOUSL* HUMALOG KWIKPEN (U-100) INSUL* INJECT 12 TO 20 UNITS SUBCUTA* PEN NEEDLE, DIABETIC 31 GAUGE* USE TO GIVE INSULIN INJECTION* FREESTYLE LANCETS 28 GAUGE USE DIRECTED 3 TO 4 TIMES * BACLOFEN 20 MG TABLET Take 20 mg by mouth three gerogie* BLOOD-GLUCOSE METER KIT Freestyle LITE Meter Kit - Dx* CEPHALEXIN 500 MG CAPSULE Take 1 capsule by mouth four * COMPOUNDED PRESCRIPTION Referral: wound clinic, [place]* FUROSEMIDE 20 MG TABLET Take 1 tablet by mouth once d* OXYCODONE 5 MG TABLET 1 tablet by ORAL/FEEDING TUBE* SENNOSIDES 8.6 MG-DOCUSATE SO* Take 1 tablet by mouth twice * Medication notes this encounter SENNOSIDES 8.6 MG-DOCUSATE SODIUM 50 MG TABLET >> Lindsey Cochran LPN 05/10/2018 12:34 PM >> LINDSEY COCHRAN LPN TueMay 10, 2018 12:34 PM finished Problem List As Of Date 05/10/2018 Noted Resolved Diabetes 1.5, 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 Hyperlipidemia [E78.5] INVALID FOR* Priority: E More... Diabetes type 2, controlled [E11.9] INVALID FOR* Lower back pain [M54.5] INVALID FOR* Priority: D More... Hearing loss [H91.90] INVALID FOR* Dizziness [R42] INVALID FOR* Other musculoskeletal symptoms referable to mixon*INVALID FOR* Hereditary and idiopathic peripheral neuropathy*INVALID FOR* Vitamin B12 deficiency [E53.8] INVALID FOR* PAD (peripheral artery disease) ([facility]) [I73.9] INVALID FOR* Priority: C Small vessel disease ([facility]) [I99.9] INVALID FOR* DM (diabetes mellitus), type 2 with neurologica*INVALID FOR* Priority: E More... Diabetes mellitus with background retinopathy (*INVALID FOR*07/13/2016 Type 1 diabetes mellitus with mild nonprolifera*INVALID FOR*06/08/2016 Other vitreous opacities - Both Eyes [H43.399] INVALID FOR* Lens replaced by other means - Both Eyes [Z96.1]INVALID FOR*07/13/2016 CVA (cerebral vascular accident) ([facility]) [I63.9] INVALID FOR* Type 2 diabetes, controlled, with neuropathy (H*INVALID FOR* Type 2 diabetes mellitus with diabetic neuropat*INVALID FOR*01/29/2016 Type 2 diabetes mellitus with diabetic polyneur*INVALID FOR* After-cataract obscuring vision [H26.499] INVALID FOR* Pseudophakia of both eyes [Z96.1] INVALID FOR* Hyperopia [H52.00] INVALID FOR* Astigmatism, regular [H52.229] INVALID FOR* Vitreous floaters of both eyes [H43.393] INVALID FOR* Meibomian gland dysfunction (MGD) of upper and *INVALID FOR* NSTEMI (non-ST elevated myocardial infarction) *INVALID FOR* Priority: C More... Coronary artery disease involving [place]ardo*INVALID FOR* Priority: A More... C. difficile colitis [A04.72] INVALID FOR* Priority: I More... More... Nicotine use disorder, F17.2 [F17.200] INVALID FOR* Priority: B More... Hypotension [I95.9] INVALID FOR*04/14/2018 Priority: C More... Cardiac insufficiency (HCC) [I50.9] INVALID FOR*04/14/2018 Priority: C More... Atelectasis [J98.11] INVALID FOR* Priority: B More... Post-operative pain [G89.18] INVALID FOR* Priority: D More... Depression [F32.9] INVALID FOR* Priority: D More... Transition of care performed with sharing of cl*INVALID FOR* Priority: Moderate More... Bilateral pneumothoraces [J93.9] INVALID FOR* Priority: B More... Discharge planning issues [Z02.9] INVALID FOR* More... Other instructions from your clinician: Limit 68 oz of water a day Prescriptions ordered this encounter Disp Refills Start End CEPHALEXIN 500 MG CAPSULE 40 c* 0 05/10/2018 05/20/2018 Route: ORAL Sig: Take 1 capsule by mouth four times daily for 10 days. COMPOUNDED PRESCRIPTION 1 Ea* 0 05/10/2018 Class: Print RX Sig: Referral: wound clinic, [facility] FUROSEMIDE 20 MG TABLET 7 ta* 0 05/10/2018 Route: ORAL Sig: Take 1 tablet by mouth once daily. OXYCODONE 5 MG TABLET 28 t* 0 05/10/2018 05/17/2018 Class: Print RX Route: PO/FT Si tablet by ORAL/FEEDING TUBE route every 6 hours as needed for up to 7 days. ROSUVASTATIN 10 MG TABLET 15 t* 3 05/10/2018 06/09/2018 Route: ORAL Sig: Take 1 tablet by mouth every 48 hours. METOPROLOL TARTRATE 25 MG TABLET 30 t* 3 05/10/2018 06/09/2018 Route: ORAL Sig: Take 0.5 tablets by mouth every 12 hours. ASPIRIN 81 MG CHEWABLE TABLET 60 t* 3 05/10/2018 06/09/2018 Route: PO/FT Si tablets by ORAL/FEEDING TUBE route once daily. GABAPENTIN 300 MG CAPSULE 270 * 3 05/10/2018 06/09/2018 Route: ORAL Sig: Take 3 capsules by mouth every 8 hours for 30 days. Medications Discontinued During This Encounter oxyCODONE IR (ROXICODONE) 5 mg immed* 28 t* 0 04/19/2018 05/10/2018 Class: Print RX Route: ORAL/FEEDING TUBE Si tablet by ORAL/FEEDING TUBE route every 6 hours as needed for up to 7 days. Disc: Reason for discontinue is not on file. rosuvastatin (CRESTOR) 10 mg tablet 15 t* 0 04/28/2018 05/10/2018 Route: ORAL Sig: Take 1 tablet by mouth every 48 hours. Disc: Reason for discontinue is not on file. metoprolol tartrate, short acting, (* 30 t* 0 04/28/2018 05/10/2018 Route: ORAL Sig: Take 0.5 tablets by mouth every 12 hours. Disc: Reason for discontinue is not on file. aspirin 81 mg chewable tablet 60 t* 0 04/20/2018 05/10/2018 Route: ORAL/FEEDING TUBE Si tablets by ORAL/FEEDING TUBE route once daily. Disc: Reason for discontinue is not on file. gabapentin (NEURONTIN) 300 mg capsule 270 * 0 04/19/2018 05/10/2018 Route: ORAL Sig: Take 3 capsules by mouth every 8 hours for 30 days. Disc: Reason for discontinue is not on file. Encounter Status:Closed by AVERY ESCALANTE DO on 05/12/18 CNOV Observed: 05/08/2018 Status: COMPLETED Source: [place] 9:15 AM [facility] REPOSITORY Office Visit (VASSWS) DORISRICK JRJosh ([id number]) 1960 M Date Time Provider Department 05/08/18 9:15 AM JERRY REAGAN During your visit today, we recorded the following information about you: Pulse Blood pressure 85/minute 120/80 Jerry Reagan DO 05/15/2018 8:10 AM Signed VASCULAR SURGERY ESTABLISHED PATIENT SERVICE DATE: 05/08/2018 SERVICE TIME: 8:25 AM PRIMARY CARE PHYSICIAN: Avery Escalante DO SUBJECTIVE HISTORY OF PRESENT ILLNESS: Patient returns for a follow up after vascular lab testing. He is approximately 4 weeks out from CABG. 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 Denies lifestyle limiting claudication or ulceration. PAST MEDICAL/SURGICAL/FAMILY/SOCIAL HISTORY PAST MEDICAL HISTORY Diagnosis Date - Cataract b/l, eye exam 05/29/13 - CTS (carpal tunnel syndrome) 10/2013 b/l, chronic, Dr. 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 Mazin Hinojosa Neuro, likely from DM and Vitamin B12 defic - Stroke ([facility]) 10/01/13 - Ulnar neuropathy 10/2013 b/l, chronic, Dr. Mazin Hinojosa EMG - Vitamin D deficiency 11/2013 PAST SURGICAL HISTORY Procedure Laterality Date - DISCISSION,2ND CATARACT,LASER 06/07/2013 Yag Capsulotomy-Right eye - LASER, SECONDARY CATARACT 2006 OU - PAST SURGICAL HISTORY OF 02/2013 Amputation Right Gt toe FAMILY HISTORY Problem Relation Age of Onset - Diabetes Mother - Heart Father SOCIAL HISTORYSocial History Marital status: Domestic Partner Spouse name: Years of education: Number of children: 3 Occupational History Occupation Employer Comment [employer] Social History Main Topics Smoking status: Never Smoker Smokeless tobacco: Former User Types: Chew Alcohol use: Yes 12.0 oz/week Cans of Beer (12oz): 8 per week Comment: 1-2 per day Drug use: No Sexual activity: Yes Partners with: Female MEDICATIONS/ALLERGIES Current Outpatient Prescriptions: silver sulfADIAZINE (SSD) 1 % cream Apply 1 application to affected area once daily. Disp: 50 g Rfl: 0 rosuvastatin (CRESTOR) 10 mg tablet Take 1 tablet by mouth every 48 hours. Disp: 15 tablet Rfl: 0 metoprolol tartrate, short acting, (LOPRESSOR) 25 mg tablet Take 0.5 tablets by mouth every 12 hours. Disp: 30 tablet Rfl: 0 oxyCODONE-acetaminophen (PERCOCET) 5-325 mg tablet Take 1 tablet by mouth every 4 hours as needed for Pain for up to 10 days. Disp: 10 tablet Rfl: 0 nortriptyline (PAMELOR) 50 mg capsule TAKE ONE CAPSULE BY MOUTH ONCE DAILY AT BEDTIME Disp: 30 capsule Rfl: 11 Cholecalciferol, Vitamin D3, 5,000 unit cap Take 1 capsule by mouth once daily. Disp: 30 capsule Rfl: 5 cetirizine (ZYRTEC) 10 mg tablet TAKE ONE TABLET BY MOUTH ONCE DAILY Disp: 30 tablet Rfl: 12 aspirin 81 mg chewable tablet 2 tablets by ORAL/FEEDING TUBE route once daily. Disp: 60 tablet Rfl: 0 acetaminophen (TYLENOL) 325 mg tablet 2 tablets by ORAL/FEEDING TUBE route every 4 hours as needed. Disp: 100 tablet Rfl: 0 gabapentin (NEURONTIN) 300 mg capsule Take 3 capsules by mouth every 8 hours for 30 days. Disp: 270 capsule Rfl: 0 senna-docusate (SENNA-S) 8.6-50 mg per tablet Take 1 tablet by mouth twice daily. Disp: 30 tablet Rfl: 0 therapeutic multivitamin (THERA VITAMIN) tablet Take 1 tablet by mouth daily with breakfast. Disp: Rfl: Tadalafil (CIALIS) 20 mg tab(s) Take 1 tablet by mouth once daily. Disp: 36 tablet Rfl: 11 blood sugar diagnostic (FREESTYLE LITE STRIPS) test strip Check blood glucose three times daily. Dx: E11.42, Insulin dependent Disp: 300 Strip Rfl: 3 BASAGLAR KWIKPEN U-100 INSULIN 100 unit/mL (3 mL) inpn INJECT 20 UNITS SUBCUTANEOUSLY ONCE DAILY AT BEDTIME Disp: 15 Pen Rfl: 3 HUMALOG KWIKPEN 100 unit/mL inpn INJECT 12 TO 20 UNITS SUBCUTANEOUSLY WITH MEALS DIRECTED Disp: 3 Pen Rfl: 5 insulin needles, DISPOSABLE, (BD INSULIN PEN NEEDLE UF) 31 gauge x 5/16 ndle USE TO GIVE INSULIN INJECTIONS 4 TIMES DAILY Disp: 400 Each Rfl: 3 FREESTYLE LANCETS 28 gauge misc USE DIRECTED 3 TO 4 TIMES DAILY TO TEST BLOOD GLUCOSE Disp: 400 Each Rfl: 3 baclofen (LIORESAL) 20 mg tablet Take 20 mg by mouth three times daily. Disp: Rfl: Blood-Glucose Meter (FREESTYLE LITE METER) monitoring kit Freestyle LITE Meter Kit - Dx: Type 2 DM - Controlled E11.9 Disp: 1 Each Rfl: 0 Current Facility-Administered Medications: cyanocobalamin 1,000 mcg injection 1,000 mcg INTRAMUSCULAR q 4 WEEKS Avery Graysonrison 1,000 mcg at 03/20/18 1034 ALLERGIES Allergen Reactions - Lipitor [Atorvastat* Contraindication-Medical Surgical Elevated LFTs and elevated CK level - Metformin Diarrhea OBJECTIVE There were no vitals taken for this visit. Gen- no distress Ext- non palpable distal pulses, healed vein harvest site. No significant edema Vascular Lab testing Compared to prior study of 10/20/2017, no significant change. Waveforms appear normal/borderline at the ankles. RIGHT SIDE Resting right ankle brachial index: 1.14 Normal ankle brachial index at rest in the right leg. Right ankle: Normal at rest. LEFT SIDE Resting left ankle brachial index: greater than 2.20 Non-compressible arteries, HAYLEE not accurate. Left toe brachial index: 0.53 Non-compressible vessels, results called by PVR tracings. Abnormal toe brachial index at rest is evidence of peripheral artery disease. Left ankle: Normal at rest. Left small vessel disease. ASSESSMENT Peripheral arterial disease PLAN/RECOMMENDATIONS Reviewed findings with Mr. George Recommend continue medical management, blood pressure, cholesterol control Continue statin and antiplatelet therapy Will follow up in 6 months or sooner with concerns SIGNATURE: Jerry Reagan DO PATIENT NAME: Rick George Jr. DATE: May 08, 2018 TIME: 8:25 AM Referring Provider: AVERY ESCALANTE [[id number]] Allergies As of Date: 05/08/2018 Noted Allergy Reaction LIPITOR (ATORVASTATIN CALCIUM) 01/07/2015 15 - Contraindication- Medical Olsen* Comments: Elevated LFTs and elevated CK level METFORMIN 03/01/2013 6 - Diarrhea Date Reviewed: 05/08/2018 Reviewed by: Terrence Kendrick RN - Fully Assessed Reason for Visit: Established Patient [175] Primary Visit Diagnosis:PAD (peripheral artery disease) (HCC) [I73.9] Order(s):[facility] [[id number]] Order #: [id number] FUTURE Prescriptions as of 05/08/2018 Sig: SILVER SULFADIAZINE 1 % TOPIC* Apply 1 application to affect* OXYCODONE-ACETAMINOPHEN 5 MG-* Take 1 tablet by mouth every * X ROSUVASTATIN 10 MG TABLET Take 1 tablet by mouth every * X METOPROLOL TARTRATE 25 MG TAB* Take 0.5 tablets by mouth abdiaziz* NORTRIPTYLINE 50 MG CAPSULE TAKE ONE CAPSULE BY MOUTH ONC* CHOLECALCIFEROL (VITAMIN D3) * Take 1 capsule by mouth once * CETIRIZINE 10 MG TABLET TAKE ONE TABLET BY MOUTH ONCE* ACETAMINOPHEN 325 MG TABLET 2 tablets by ORAL/FEEDING TUB* SENNOSIDES 8.6 MG-DOCUSATE SO* Take 1 tablet by mouth twice * THERAPEUTIC MULTIVITAMIN TABL* Take 1 tablet by mouth daily * X ASPIRIN 81 MG CHEWABLE TABLET 2 tablets by ORAL/FEEDING TUB* X GABAPENTIN 300 MG CAPSULE Take 3 capsules by mouth ever* TADALAFIL 20 MG TABLET Take 1 tablet by mouth once d* BLOOD SUGAR DIAGNOSTIC STRIPS Check blood glucose three georgie* BASAGLAR KWIKPEN U-100 INSULI* INJECT 20 UNITS SUBCUTANEOUSL* HUMALOG KWIKPEN (U-100) INSUL* INJECT 12 TO 20 UNITS SUBCUTA* PEN NEEDLE, DIABETIC 31 GAUGE* USE TO GIVE INSULIN INJECTION* FREESTYLE LANCETS 28 GAUGE USE DIRECTED 3 TO 4 TIMES * BACLOFEN 20 MG TABLET Take 20 mg by mouth three georgie* BLOOD-GLUCOSE METER KIT Freestyle LITE Meter Kit - Dx* Problem List As Of Date 05/08/2018 Noted Resolved Diabetes 1.5, 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 Hyperlipidemia [E78.5] INVALID FOR* Priority: E More... Diabetes type 2, controlled [E11.9] INVALID FOR* Lower back pain [M54.5] INVALID FOR* Priority: D More... Hearing loss [H91.90] INVALID FOR* Dizziness [R42] INVALID FOR* Other musculoskeletal symptoms referable to mixon*INVALID FOR* Hereditary and idiopathic peripheral neuropathy*INVALID FOR* Vitamin B12 deficiency [E53.8] INVALID FOR* PAD (peripheral artery disease) ([facility]) [I73.9] INVALID FOR* Priority: C Small vessel disease ([facility]) [I99.9] INVALID FOR* DM (diabetes mellitus), type 2 with neurologica*INVALID FOR* Priority: E More... Diabetes mellitus with background retinopathy (*INVALID FOR*07/13/2016 Type 1 diabetes mellitus with mild nonprolifera*INVALID FOR*06/08/2016 Other vitreous opacities - Both Eyes [H43.399] INVALID FOR* Lens replaced by other means - Both Eyes [Z96.1]INVALID FOR*07/13/2016 CVA (cerebral vascular accident) ([facility]) [I63.9] INVALID FOR* Type 2 diabetes, controlled, with neuropathy (H*INVALID FOR* Type 2 diabetes mellitus with diabetic neuropat*INVALID FOR*01/29/2016 Type 2 diabetes mellitus with diabetic polyneur*INVALID FOR* After-cataract obscuring vision [H26.499] INVALID FOR* Pseudophakia of both eyes [Z96.1] INVALID FOR* Hyperopia [H52.00] INVALID FOR* Astigmatism, regular [H52.229] INVALID FOR* Vitreous floaters of both eyes [H43.393] INVALID FOR* Meibomian gland dysfunction (MGD) of upper and *INVALID FOR* NSTEMI (non-ST elevated myocardial infarction) *INVALID FOR* Priority: C More... Coronary artery disease involving [place] ricardo*INVALID FOR* Priority: A More... C. difficile colitis [A04.72] INVALID FOR* Priority: I More... More... Nicotine use disorder, F17.2 [F17.200] INVALID FOR* Priority: B More... Hypotension [I95.9] INVALID FOR*04/14/2018 Priority: C More... Cardiac insufficiency (HCC) [I50.9] INVALID FOR*04/14/2018 Priority: C More... Atelectasis [J98.11] INVALID FOR* Priority: B More... Post-operative pain [G89.18] INVALID FOR* Priority: D More... Depression [F32.9] INVALID FOR* Priority: D More... Transition of care performed with sharing of cl*INVALID FOR* Priority: Moderate More... Bilateral pneumothoraces [J93.9] INVALID FOR* Priority: B More... Discharge planning issues [Z02.9] INVALID FOR* More... Encounter Status:Closed by JERRY REAGAN DO on 05/15/18 PROGRESS Observed: 05/08/2018 Status: COMPLETED Source: [place] 8:25 AM [facility] REPOSITORY HNO ID: [id number] Author: Jerry Reagan Service: (none) Author Type: Physician Type: Progress Notes Filed: 05/15/2018 8:10 AM Note Text: VASCULAR SURGERY ESTABLISHED PATIENT SERVICE DATE: 05/08/2018 SERVICE TIME: 8:25 AM PRIMARY CARE PHYSICIAN: Avery Escalante DO SUBJECTIVE HISTORY OF PRESENT ILLNESS: Patient returns for a follow up after vascular lab testing. He is approximately 4 weeks out from CABG. 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 Denies lifestyle limiting claudication or ulceration. PAST MEDICAL/SURGICAL/FAMILY/SOCIAL HISTORY PAST MEDICAL HISTORY Diagnosis Date - Cataract b/l, eye exam 05/29/13 - CTS (carpal tunnel syndrome) 10/2013 b/l, chronic, Dr. 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 Mazin Hinojosa Neuro, likely from DM and Vitamin B12 defic - Stroke ([facility]) 10/01/13 - Ulnar neuropathy 10/2013 b/l, chronic, Dr. Mazin Hinojosa EMG - Vitamin D deficiency 11/2013 PAST SURGICAL HISTORY Procedure Laterality Date - DISCISSION,2ND CATARACT,LASER 06/07/2013 Yag Capsulotomy-Right eye - LASER, SECONDARY CATARACT 2006 OU - PAST SURGICAL HISTORY OF 02/2013 Amputation Right Gt toe FAMILY HISTORY Problem Relation Age of Onset - Diabetes Mother - Heart Father SOCIAL HISTORYSocial History Marital status: Domestic Partner Spouse name: Years of education: Number of children: 3 Occupational History Occupation Employer Comment [employer] Social History Main Topics Smoking status: Never Smoker Smokeless tobacco: Former User Types: Chew Alcohol use: Yes 12.0 oz/week Cans of Beer (12oz): 8 per week Comment: 1-2 per day Drug use: No Sexual activity: Yes Partners with: Female MEDICATIONS/ALLERGIES Current Outpatient Prescriptions: silver sulfADIAZINE (SSD) 1 % cream Apply 1 application to affected area once daily. Disp: 50 g Rfl: 0 rosuvastatin (CRESTOR) 10 mg tablet Take 1 tablet by mouth every 48 hours. Disp: 15 tablet Rfl: 0 metoprolol tartrate, short acting, (LOPRESSOR) 25 mg tablet Take 0.5 tablets by mouth every 12 hours. Disp: 30 tablet Rfl: 0 oxyCODONE-acetaminophen (PERCOCET) 5-325 mg tablet Take 1 tablet by mouth every 4 hours as needed for Pain for up to 10 days. Disp: 10 tablet Rfl: 0 nortriptyline (PAMELOR) 50 mg capsule TAKE ONE CAPSULE BY MOUTH ONCE DAILY AT BEDTIME Disp: 30 capsule Rfl: 11 Cholecalciferol, Vitamin D3, 5,000 unit cap Take 1 capsule by mouth once daily. Disp: 30 capsule Rfl: 5 cetirizine (ZYRTEC) 10 mg tablet TAKE ONE TABLET BY MOUTH ONCE DAILY Disp: 30 tablet Rfl: 12 aspirin 81 mg chewable tablet 2 tablets by ORAL/FEEDING TUBE route once daily. Disp: 60 tablet Rfl: 0 acetaminophen (TYLENOL) 325 mg tablet 2 tablets by ORAL/FEEDING TUBE route every 4 hours as needed. Disp: 100 tablet Rfl: 0 gabapentin (NEURONTIN) 300 mg capsule Take 3 capsules by mouth every 8 hours for 30 days. Disp: 270 capsule Rfl: 0 senna-docusate (SENNA-S) 8.6-50 mg per tablet Take 1 tablet by mouth twice daily. Disp: 30 tablet Rfl: 0 therapeutic multivitamin (THERA VITAMIN) tablet Take 1 tablet by mouth daily with breakfast. Disp: Rfl: Tadalafil (CIALIS) 20 mg tab(s) Take 1 tablet by mouth once daily. Disp: 36 tablet Rfl: 11 blood sugar diagnostic (FREESTYLE LITE STRIPS) test strip Check blood glucose three times daily. Dx: E11.42, Insulin dependent Disp: 300 Strip Rfl: 3 BASAGLAR KWIKPEN U-100 INSULIN 100 unit/mL (3 mL) inpn INJECT 20 UNITS SUBCUTANEOUSLY ONCE DAILY AT BEDTIME Disp: 15 Pen Rfl: 3 HUMALOG KWIKPEN 100 unit/mL inpn INJECT 12 TO 20 UNITS SUBCUTANEOUSLY WITH MEALS DIRECTED Disp: 3 Pen Rfl: 5 insulin needles, DISPOSABLE, (BD INSULIN PEN NEEDLE UF) 31 gauge x 5/16 ndle USE TO GIVE INSULIN INJECTIONS 4 TIMES DAILY Disp: 400 Each Rfl: 3 FREESTYLE LANCETS 28 gauge misc USE DIRECTED 3 TO 4 TIMES DAILY TO TEST BLOOD GLUCOSE Disp: 400 Each Rfl: 3 baclofen (LIORESAL) 20 mg tablet Take 20 mg by mouth three times daily. Disp: Rfl: Blood-Glucose Meter (FREESTYLE LITE METER) monitoring kit Freestyle LITE Meter Kit - Dx: Type 2 DM - Controlled E11.9 Disp: 1 Each Rfl: 0 Current Facility-Administered Medications: cyanocobalamin 1,000 mcg injection 1,000 mcg INTRAMUSCULAR q 4 WEEKS Avery Alonzo Escalante 1,000 mcg at 03/20/18 1034 ALLERGIES Allergen Reactions - Lipitor [Atorvastat* Contraindication-Medical Surgical Elevated LFTs and elevated CK level - Metformin Diarrhea OBJECTIVE There were no vitals taken for this visit. Gen- no distress Ext- non palpable distal pulses, healed vein harvest site. No significant edema Vascular Lab testing Compared to prior study of 10/20/2017, no significant change. Waveforms appear normal/borderline at the ankles. RIGHT SIDE Resting right ankle brachial index: 1.14 Normal ankle brachial index at rest in the right leg. Right ankle: Normal at rest. LEFT SIDE Resting left ankle brachial index: greater than 2.20 Non-compressible arteries, HAYLEE not accurate. Left toe brachial index: 0.53 Non-compressible vessels, results called by PVR tracings. Abnormal toe brachial index at rest is evidence of peripheral artery disease. Left ankle: Normal at rest. Left small vessel disease. ASSESSMENT Peripheral arterial disease PLAN/RECOMMENDATIONS Reviewed findings with Mr. George Recommend continue medical management, blood pressure, cholesterol control Continue statin and antiplatelet therapy Will follow up in 6 months or sooner with concerns SIGNATURE: Jerry Reagan DO PATIENT NAME: Rick George Jr. DATE: May 08, 2018 TIME: 8:25 AM C DIFFICILE PCR Collected: 05/08/2018 Status: F Source: [place] 7:05 AM [facility] REPOSITORY TYPE CODE TESTS RESULT OUT OF RANGE REFERENCE UNITS LAB CDFRES C Abnormal difficile PCR Positive for Alert C. difficile toxin by PCR Result Comment: . A positive PCR result may indicate C. difficile infection or colonization. The positive predictive value of this test for C. difficile infection is highest for patients with clinically significant diarrhea (>=3 unformed stools in 24 h) who do not have an alternative explanation (e.g., recent receipt of laxatives). Toxin EIA testing will also be performed as recommended by IDSA clinical practice guidelines for institutions without preagreed criteria for specimen submission. Performed By: #### CDPCR #### [address] [address] C. DIFF TOXIN BY Collected: 05/08/2018 Status: F Source: [place] EIA LAB 7:05 AM [facility] ORDER ONLY REPOSITORY TYPE CODE TESTS RESULT OUT OF REFERENCE UNITS RANGE LAB CDEIAT C. difficile toxin not detected C.diff by EIA. Toxin EIA Toxin EIA is less sensitive than cell cytotoxin and PCR assays. Clinical correlation of PCR positive/toxin EIA negative results is required to distinguish C. difficile colonization from disease. Performed By: #### CDEIA #### [id number] [place], [place] [address] PROGRESS Observed: 05/05/2018 Status: COMPLETED Source: [place] 2:55 PM [facility] REPOSITORY HNO ID: [id number] Author: Jose Juan Stanotn Service: (none) Author Type: Nurse Practitioner Type: Progress Notes Filed: 05/08/2018 12:09 PM Note Text: Noted Jose Juan Stanton APRN.CNP PROGRESS Observed: 05/05/2018 Status: COMPLETED Source: [place] 11:06 AM [facility] REPOSITORY HNO ID: [id number] Author: Catracho LernerRn) Service: (none) Author Type: Registered Nurse Type: Progress Notes Filed: 05/08/2018 12:09 PM Note Text: TRANSITION CARE MANAGEMENT (TCM) FOLLOW-UP NOTE Provider Action/FYI 1. Call to Pt he noted is following activity restriction 2. Pt c/o Left side shoulder blade pain through back to breast bone, feels more muscular, rates pain at 6/10, took 1 Percocet last night, slept well, had pain relief, denies CP, shoulder pain started when he started coughing 04/23/18, restarted dry coughing last night and today after going outside, cough comes and goes, denies fever, is not using anything OTC. Discussed taking 1 percocet if pain is high, Instructed to be seen in ER if Pt has increased Pain, CP, Sob or unusual symptoms. Pt verbalized understanding. 3. Pt denies Sob, right leg small amount of edema unchanged. 4. Pt filled prescription for ointment applying to left incision site as ordered, 5. Consult dietitian- Discussed sooner appt in [place] with Nieves Salter, provided phone number for scheduling [phone], Pt noted would depend on family's schedule, noted he will call for an earlier appt based on and daughter's schedule (Radha is going to back to work, and daughter is going to [place]) 6. Pt is taking stool sample for c-diff today prior to Vascular testing for Dr. Reagan 05/05/18 7. PCP Appt 05/10/18, Cardiology Appt 05/25/18 8. Mailed [facility] Educational info related to Heart Healthy eating, ways to reduce sodium /foods recommended, monitoring your wt and fluid intake guidelines sent as Pt requested. No additional needs or concerns noted. Patient identified by name and date of : YES Spoke to patient Signature Jesusita Hayden RN May 05, 2018 May 05, 2018 1:01 PM JAZLYN Observed: 05/05/2018 Status: COMPLETED Source: [place] 12:00 AM [facility] REPOSITORY Patient Outreach (FAMPWS) RICK GEORGE JR. ([id number]) 1960 M Date Time Provider Department 05/05/18 [facility] (RN) NICANORPWS During your visit today, we recorded the following information about you: Jesusita Hayden RN 05/08/2018 12:09 PM Signed TRANSITION CARE MANAGEMENT (TCM) FOLLOW-UP NOTE Provider Action/FYI 1. Call to Pt he noted is following activity restriction 2. Pt c/o Left side shoulder blade pain through back to breast bone, feels more muscular, rates pain at 6/10, took 1 Percocet last night, slept well, had pain relief, denies CP, shoulder pain started when he started coughing 04/23/18, restarted dry coughing last night and today after going outside, cough comes and goes, denies fever, is not using anything OTC. Discussed taking 1 percocet if pain is high, Instructed to be seen in ER if Pt has increased Pain, CP, Sob or unusual symptoms. Pt verbalized understanding. 3. Pt denies Sob, right leg small amount of edema unchanged. 4. Pt filled prescription for ointment applying to left incision site as ordered, 5. Consult dietitian- Discussed sooner appt in [place] with Nieves Salter, provided phone number for scheduling [phone], Pt noted would depend on family's schedule, noted he will call for an earlier appt based on and daughter's schedule (Radha is going to back to work, and daughter is going to [place]) 6. Pt is taking stool sample for c-diff today prior to Vascular testing for Dr. Reagan 05/05/18 7. PCP Appt 05/10/18, Cardiology Appt 05/25/18 8. Mailed [facility] Educational info related to Heart Healthy eating, ways to reduce sodium /foods recommended, monitoring your wt and fluid intake guidelines sent as Pt requested. No additional needs or concerns noted. Patient identified by name and date of : YES Spoke to patient Signature Jesusita Hayden RN May 05, 2018 May 05, 2018 1:01 PM Jose Juan Stanton APRN.CNP 05/08/2018 12:09 PM Signed Noted Jose Juan Stanton APRN.TRACK LABORER Allergies As of Date: 05/05/2018 Noted Allergy Reaction LIPITOR (ATORVASTATIN CALCIUM) 01/07/2015 15 - Contraindication- Medical Olsen* Comments: Elevated LFTs and elevated CK level METFORMIN 03/01/2013 6 - Diarrhea Date Reviewed: 05/03/2018 Reviewed by: Tatiana Steven [employer] Manager - Fully Assessed Reason for Visit: Liquid F[facility]ilizer [facility] Follow Up [6185] Cmt: Status update Reason For Visit History Recorded Prescriptions as of 05/05/2018 Sig: SILVER SULFADIAZINE 1 % TOPIC* Apply 1 application to affect* ROSUVASTATIN 10 MG TABLET Take 1 tablet by mouth every * METOPROLOL TARTRATE 25 MG TAB* Take 0.5 tablets by mouth abdiaziz* OXYCODONE-ACETAMINOPHEN 5 MG-* Take 1 tablet by mouth every * NORTRIPTYLINE 50 MG CAPSULE TAKE ONE CAPSULE BY MOUTH ONC* CHOLECALCIFEROL (VITAMIN D3) * Take 1 capsule by mouth once * CETIRIZINE 10 MG TABLET TAKE ONE TABLET BY MOUTH ONCE* ASPIRIN 81 MG CHEWABLE TABLET 2 tablets by ORAL/FEEDING TUB* ACETAMINOPHEN 325 MG TABLET 2 tablets by ORAL/FEEDING TUB* GABAPENTIN 300 MG CAPSULE Take 3 capsules by mouth ever* SENNOSIDES 8.6 MG-DOCUSATE SO* Take 1 tablet by mouth twice * THERAPEUTIC MULTIVITAMIN TABL* Take 1 tablet by mouth daily * TADALAFIL 20 MG TABLET Take 1 tablet by mouth once d* BLOOD SUGAR DIAGNOSTIC STRIPS Check blood glucose three georgie* BASAGLAR KWIKPEN U-100 INSULI* INJECT 20 UNITS SUBCUTANEOUSL* HUMALOG KWIKPEN (U-100) INSUL* INJECT 12 TO 20 UNITS SUBCUTA* PEN NEEDLE, DIABETIC 31 GAUGE* USE TO GIVE INSULIN INJECTION* FREESTYLE LANCETS 28 GAUGE USE DIRECTED 3 TO 4 TIMES * BACLOFEN 20 MG TABLET Take 20 mg by mouth three georgie* BLOOD-GLUCOSE METER KIT Freestyle LITE Meter Kit - Dx* Problem List As Of Date 05/05/2018 Noted Resolved Diabetes 1.5, 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 Hyperlipidemia [E78.5] INVALID FOR* Priority: E More... Diabetes type 2, controlled [E11.9] INVALID FOR* Lower back pain [M54.5] INVALID FOR* Priority: D More... Hearing loss [H91.90] INVALID FOR* Dizziness [R42] INVALID FOR* Other musculoskeletal symptoms referable to mixon*INVALID FOR* Hereditary and idiopathic peripheral neuropathy*INVALID FOR* Vitamin B12 deficiency [E53.8] INVALID FOR* PAD (peripheral artery disease) ([facility]) [I73.9] INVALID FOR* Priority: C Small vessel disease ([facility]) [I99.9] INVALID FOR* DM (diabetes mellitus), type 2 with neurologica*INVALID FOR* Priority: E More... Diabetes mellitus with background retinopathy (*INVALID FOR*07/13/2016 Type 1 diabetes mellitus with mild nonprolifera*INVALID FOR*06/08/2016 Other vitreous opacities - Both Eyes [H43.399] INVALID FOR* Lens replaced by other means - Both Eyes [Z96.1]INVALID FOR*07/13/2016 CVA (cerebral vascular accident) ([facility]) [I63.9] INVALID FOR* Type 2 diabetes, controlled, with neuropathy (H*INVALID FOR* Type 2 diabetes mellitus with diabetic neuropat*INVALID FOR*01/29/2016 Type 2 diabetes mellitus with diabetic polyneur*INVALID FOR* After-cataract obscuring vision [H26.499] INVALID FOR* Pseudophakia of both eyes [Z96.1] INVALID FOR* Hyperopia [H52.00] INVALID FOR* Astigmatism, regular [H52.229] INVALID FOR* Vitreous floaters of both eyes [H43.393] INVALID FOR* Meibomian gland dysfunction (MGD) of upper and *INVALID FOR* NSTEMI (non-ST elevated myocardial infarction) *INVALID FOR* Priority: C More... Coronary artery disease involving [place] ricardo*INVALID FOR* Priority: A More... C. difficile colitis [A04.72] INVALID FOR* Priority: I More... More... Nicotine use disorder, F17.2 [F17.200] INVALID FOR* Priority: B More... Hypotension [I95.9] INVALID FOR*04/14/2018 Priority: C More... Cardiac insufficiency (HCC) [I50.9] INVALID FOR*04/14/2018 Priority: C More... Atelectasis [J98.11] INVALID FOR* Priority: B More... Post-operative pain [G89.18] INVALID FOR* Priority: D More... Depression [F32.9] INVALID FOR* Priority: D More... Transition of care performed with sharing of cl*INVALID FOR* Priority: Moderate More... Bilateral pneumothoraces [J93.9] INVALID FOR* Priority: B More... Discharge planning issues [Z02.9] INVALID FOR* More... Encounter Status:Closed by JESUSITA HAYDEN on 05/08/18 PROGRESS Observed: 05/03/2018 Status: COMPLETED Source: [place] 11:44 AM [facility] REPOSITORY O ID: [id number] Author: Catracho Mc (Rn) Service: (none) Author Type: Registered Nurse Type: Progress Notes Filed: 05/03/2018 5:51 PM Note Text: PRIMARY CARE COORDINATION IN OFFICE VISIT WITH PCP Patient has been identified by name and date of . PCP Assessment/Plan: Reviewed PCP plan with patient using Teach Back ASSESSMENT/PLAN: 1. Coronary artery disease involving [place] coronary artery of [place] heart with unstable angina pectoris (HCC) - ICD9: 414.01, 411.1, ICD10: I25.110 (primary diagnosis) - PVR ANK PRESS [facility]- per vascular request in [facility] - CONSULT TO NUTRITION THERAPY- per patient request - continue current medications ? 2. NSTEMI (non-ST elevated myocardial infarction) ([facility]) - ICD9: 410.70, ICD10: I21.4 - as above - continue current medications ? 3. Anemia, unspecified type - ICD9: 285.9, ICD10: D64.9 - CBC + DIFF ? 4. Problem involving surgical incision - ICD9: 998.83, ICD10: T81.89XA - SILVER SULFADIAZINE 1 % TOPICAL CREAM ? - Continue activity restriction - Apply ointment to left incision site as ordered - Recommend frequent rest periods - Consult dietitian - Schedule PVRs for Dr. Reagan - Complete stool sample for c-diff - Follow up with PCP and cardiothoracic surgery as scheduled - Call office on Tuesday with update on symptoms ? Next Office Visit: 05/10/[address] Escalante Plan For Next Call: F/u Stool Specimen for C-Diff Expedite sooner appt. with Dietitian, current appt 07/10/18- 05/03/18 Message sent to Nieves Gaetano to verify if an earlier appt is available Mail information related to foods high in Sodium and provide Dietary Instruction prior to Dietitian Appt CBC in 3 weeks Health Education and promotion of wellness Early symptom awareness, prevent complications and hospitalization Jesusita Hayden RN May 03, 2018 PROGRESS Observed: 05/03/2018 Status: COMPLETED Source: [place] 11:42 AM [facility] REPOSITORY HNO ID: [id number] Author: Jose Juan Alonzo (Insurance Agent) Shannon Service: (none) Author Type: Nurse Practitioner Type: Progress Notes Filed: 05/04/2018 7:57 AM Note Text: HPI/CC: Rick George Jr. is a 58 year old male who presents for dry cough, +PND, chills and subjective fever started Tuesday after moving tarps and being outside. Taking OTC antihistamine and cough syrup. XRAY 04/28 was normal. Rested most of the day yesterday. Today feeling well- feels like he could run a marathon. Continues to have loose stools. Did not complete repeat stool testing. Reports limiting activity as discussed during last visit. Continues pain medication PRN Jesusita ALCARAZ healthcare interpreter and patient SO in room during encounter. ROS as above, otherwise non-contributory. Reviewed PMHx, PSHx, social Hx, medications and allergies. PHYSICAL EXAMINATION: BP 120/90 (BP Site: Left Arm, BP Position: Sitting, BP Cuff Size: Regular Adult) Pulse 94 Temp 36.7 ?C (98.1 ?F) (Temporal Artery) Resp 16 Wt 87.1 kg (192 lb) SpO2 100% BMI 27.55 kg/m? General appearance: Well appearing, alert, in no acute distress, well-hydrated, well nourished. and Obese Skin: Skin color, texture, turgor normal, no suspicious rashes or lesions- midsternal, right sided, and right LE incisions healing well. Left surgical incision not healing well, surrounding skin with erythema, no drainage. Dark tissue wound bed and scabbing Lungs: Lungs clear to auscultation. No wheezing, rhonchi, rales Heart: RRR without murmur, gallop, or rubs. No ectopy ASSESSMENT/PLAN: 1. Coronary artery disease involving [place] coronary artery of [place] heart with unstable angina pectoris (HCC) - ICD9: 414.01, 411.1, ICD10: I25.110 (primary diagnosis) - PVR ANK PRESS [facility]- per vascular request in [facility] - CONSULT TO NUTRITION THERAPY- per patient request - continue current medications 2. NSTEMI (non-ST elevated myocardial infarction) ([facility]) - ICD9: 410.70, ICD10: I21.4 - as above - continue current medications 3. Anemia, unspecified type - ICD9: 285.9, ICD10: D64.9 - CBC + DIFF 4. Problem involving surgical incision - ICD9: 998.83, ICD10: T81.89XA - SILVER SULFADIAZINE 1 % TOPICAL CREAM - Continue activity restriction - Apply ointment to left incision site as ordered - Recommend frequent rest periods - Consult dietitian - Schedule PVRs for Dr. Reagan - Complete stool sample for c-diff - Follow up with PCP and cardiothoracic surgery as scheduled - Call office on Tuesday with update on symptoms Jose Juan Stanton APRN.CNP CNOV Observed: 05/03/2018 Status: COMPLETED Source: [place] 10:40 AM [facility] REPOSITORY Office Visit (FAMPWS) RICK GEORGE JR. ([id number]) 1960 M Date Time Provider Department 05/03/18 10:40 AM JOSE JUAN STANTON) FAMHinaWS During your visit today, we recorded the following information about you: Temperature Pulse Respiration Blood pressure 98.1 degrees 94/minute 16/minute 120/90 Weight 87.1 kg Jose Juan Stanton APRN.CNP 05/03/2018 11:37 AM Signed Continue activity restriction Apply ointment to left incision site as ordered Recommend frequent rest periods Consult dietitian Schedule PVRs for Dr. Reagan Complete stool sample for c-diff Follow up with PCP and cardiothoracic surgery as scheduled Call office on Tuesday with update on symptoms Jose Juan Stanton APRN.AD 05/04/2018 7:57 AM Signed HPI/CC: Rick George Jr. is a 58 year old male who presents for dry cough, +PND, chills and subjective fever started Tuesday after moving tarps and being outside. Taking OTC antihistamine and cough syrup. XRAY 04/28 was normal. Rested most of the day yesterday. Today feeling well- feels like he could run a marathon. Continues to have loose stools. Did not complete repeat stool testing. Reports limiting activity as discussed during last visit. Continues pain medication MARLENN Jesusita ALCARAZ healthcare interpreter and patient SO in room during encounter. ROS as above, otherwise non-contributory. Reviewed PMHx, PSHx, social Hx, medications and allergies. PHYSICAL EXAMINATION: BP 120/90 (BP Site: Left Arm, BP Position: Sitting, BP Cuff Size: Regular Adult) Pulse 94 Temp 36.7 ?C (98.1 ?F) (Temporal Artery) Resp 16 Wt 87.1 kg (192 lb) SpO2 100% BMI 27.55 kg/m? General appearance: Well appearing, alert, in no acute distress, well-hydrated, well nourished. and Obese Skin: Skin color, texture, turgor normal, no suspicious rashes or lesions- midsternal, right sided, and right LE incisions healing well. Left surgical incision not healing well, surrounding skin with erythema, no drainage. Dark tissue wound bed and scabbing Lungs: Lungs clear to auscultation. No wheezing, rhonchi, rales Heart: RRR without murmur, gallop, or rubs. No ectopy ASSESSMENT/PLAN: 1. Coronary artery disease involving [place] coronary artery of [place] heart with unstable angina pectoris (HCC) - ICD9: 414.01, 411.1, ICD10: I25.110 (primary diagnosis) - PVR ANK PRESS [facility]- per vascular request in [facility] - CONSULT TO NUTRITION THERAPY- per patient request - continue current medications 2. NSTEMI (non-ST elevated myocardial infarction) (HCC) - ICD9: 410.70, ICD10: I21.4 - as above - continue current medications 3. Anemia, unspecified type - ICD9: 285.9, ICD10: D64.9 - CBC + DIFF 4. Problem involving surgical incision - ICD9: 998.83, ICD10: T81.89XA - SILVER SULFADIAZINE 1 % TOPICAL CREAM - Continue activity restriction - Apply ointment to left incision site as ordered - Recommend frequent rest periods - Consult dietitian - Schedule PVRs for Dr. Reagan - Complete stool sample for c-diff - Follow up with PCP and cardiothoracic surgery as scheduled - Call office on Tuesday with update on symptoms Jose Juan Stanton APRN.TRACK LABORER Referring Provider: SELF [[id number]] Allergies As of Date: 05/03/2018 Noted Allergy Reaction LIPITOR (ATORVASTATIN CALCIUM) 01/07/2015 15 - Contraindication- Medical Olsen* Comments: Elevated LFTs and elevated CK level METFORMIN 03/01/2013 6 - Diarrhea Date Reviewed: 05/03/2018 Reviewed by: Tatiana Steven [employer] Manager - Fully Assessed Reason for Visit: Dry cough [Other] Cmt: Productive today-took cough syrup and takes OTC cetrizine post nasal drainage Primary Visit Diagnosis:Coronary artery disease involving [place] coronary artery of [place] heart with unstable angina pectoris (HCC) [I25.110] Other Visit Diagnoses:NSTEMI (non-ST elevated myocardial infarction) ([facility]) [I21.4] Anemia, unspecified type [D64.9] Problem involving surgical incision [T81.89XA] Order(s):silver sulfADIAZINE (SSD) 1 % creamApply 1 application to affected area once daily.Disp: 50 gRfl: 0 PVR ANK PRESS [facility] [[id number]] Order #: [id number] FUTURE CONSULT TO NUTRITION THERAPY [9025] Order #: [id number]: 1 CBC + DIFF [SQCBCDIF] Order #: [id number] FUTURE Prescriptions as of 05/03/2018 Sig: ROSUVASTATIN 10 MG TABLET Take 1 tablet by mouth every * METOPROLOL TARTRATE 25 MG TAB* Take 0.5 tablets by mouth abdiaziz* OXYCODONE-ACETAMINOPHEN 5 MG-* Take 1 tablet by mouth every * NORTRIPTYLINE 50 MG CAPSULE TAKE ONE CAPSULE BY MOUTH ONC* CHOLECALCIFEROL (VITAMIN D3) * Take 1 capsule by mouth once * CETIRIZINE 10 MG TABLET TAKE ONE TABLET BY MOUTH ONCE* ASPIRIN 81 MG CHEWABLE TABLET 2 tablets by ORAL/FEEDING TUB* ACETAMINOPHEN 325 MG TABLET 2 tablets by ORAL/FEEDING TUB* GABAPENTIN 300 MG CAPSULE Take 3 capsules by mouth ever* SENNOSIDES 8.6 MG-DOCUSATE SO* Take 1 tablet by mouth twice * THERAPEUTIC MULTIVITAMIN TABL* Take 1 tablet by mouth daily * TADALAFIL 20 MG TABLET Take 1 tablet by mouth once d* BLOOD SUGAR DIAGNOSTIC STRIPS Check blood glucose three georgie* BASAGLAR KWIKPEN U-100 INSULI* INJECT 20 UNITS SUBCUTANEOUSL* HUMALOG KWIKPEN (U-100) INSUL* INJECT 12 TO 20 UNITS SUBCUTA* PEN NEEDLE, DIABETIC 31 GAUGE* USE TO GIVE INSULIN INJECTION* FREESTYLE LANCETS 28 GAUGE USE DIRECTED 3 TO 4 TIMES * BACLOFEN 20 MG TABLET Take 20 mg by mouth three georgie* BLOOD-GLUCOSE METER KIT Freestyle LITE Meter Kit - Dx* SILVER SULFADIAZINE 1 % TOPIC* Apply 1 application to affect* Problem List As Of Date 05/03/2018 Noted Resolved Diabetes 1.5, 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 Hyperlipidemia [E78.5] INVALID FOR* Priority: E More... Diabetes type 2, controlled [E11.9] INVALID FOR* Lower back pain [M54.5] INVALID FOR* Priority: D More... Hearing loss [H91.90] INVALID FOR* Dizziness [R42] INVALID FOR* Other musculoskeletal symptoms referable to mixon*INVALID FOR* Hereditary and idiopathic peripheral neuropathy*INVALID FOR* Vitamin B12 deficiency [E53.8] INVALID FOR* PAD (peripheral artery disease) ([facility]) [I73.9] INVALID FOR* Priority: C Small vessel disease ([facility]) [I99.9] INVALID FOR* DM (diabetes mellitus), type 2 with neurologica*INVALID FOR* Priority: E More... Diabetes mellitus with background retinopathy (*INVALID FOR*07/13/2016 Type 1 diabetes mellitus with mild nonprolifera*INVALID FOR*06/08/2016 Other vitreous opacities - Both Eyes [H43.399] INVALID FOR* Lens replaced by other means - Both Eyes [Z96.1]INVALID FOR*07/13/2016 CVA (cerebral vascular accident) (HCC) [I63.9] INVALID FOR* Type 2 diabetes, controlled, with neuropathy (H*INVALID FOR* Type 2 diabetes mellitus with diabetic neuropat*INVALID FOR*01/29/2016 Type 2 diabetes mellitus with diabetic polyneur*INVALID FOR* After-cataract obscuring vision [H26.499] INVALID FOR* Pseudophakia of both eyes [Z96.1] INVALID FOR* Hyperopia [H52.00] INVALID FOR* Astigmatism, regular [H52.229] INVALID FOR* Vitreous floaters of both eyes [H43.393] INVALID FOR* Meibomian gland dysfunction (MGD) of upper and *INVALID FOR* NSTEMI (non-ST elevated myocardial infarction) *INVALID FOR* Priority: C More... Coronary artery disease involving [place] ricardo*INVALID FOR* Priority: A More... C. difficile colitis [A04.72] INVALID FOR* Priority: I More... More... Nicotine use disorder, F17.2 [F17.200] INVALID FOR* Priority: B More... Hypotension [I95.9] INVALID FOR*04/14/2018 Priority: C More... Cardiac insufficiency (HCC) [I50.9] INVALID FOR*04/14/2018 Priority: C More... Atelectasis [J98.11] INVALID FOR* Priority: B More... Post-operative pain [G89.18] INVALID FOR* Priority: D More... Depression [F32.9] INVALID FOR* Priority: D More... Transition of care performed with sharing of cl*INVALID FOR* Priority: Moderate More... Bilateral pneumothoraces [J93.9] INVALID FOR* Priority: B More... Discharge planning issues [Z02.9] INVALID FOR* More... Other instructions from your clinician: Continue activity restriction Apply ointment to left incision site as ordered Recommend frequent rest periods Consult dietitian Schedule PVRs for Dr. Reagan Complete stool sample for c-diff Follow up with PCP and cardiothoracic surgery as scheduled Call office on Tuesday with update on symptoms Prescriptions ordered this encounter Disp Refills Start End SILVER SULFADIAZINE 1 % TOPICAL CREAM 50 g 0 05/03/2018 Route: TOPICAL Sig: Apply 1 application to affected area once daily. Medications Discontinued During This Encounter Cetirizine 10 mg cap 90 c* 3 04/24/2018 05/03/2018 Route: ORAL Sig: Take 1 capsule by mouth once daily. Disc: Reason for discontinue is not on file. vancomycin (VANCOCIN) 25 mg/mL liqd 50 mL 0 04/19/2018 05/03/2018 Route: ORAL Sig: Take 5 mL by mouth four times daily. Disc: Reason for discontinue is not on file. Encounter Status:Closed by JOSE JUAN STANTON CNP on 05/04/18 PROGRESS Observed: 05/03/2018 Status: COMPLETED Source: [place] 10:23 AM [facility] REPOSITORY HNO ID: [id number] Author: Jose Juan Garcia) Shannon Service: (none) Author Type: Nurse Practitioner Type: Progress Notes Filed: 05/03/2018 11:12 AM Note Text: Noted Jose Juan Stanton APRN.CNP PROGRESS Observed: 05/03/2018 Status: COMPLETED Source: [place] 9:27 AM [facility] REPOSITORY HNO ID: [id number] Author: Catracho Mc (Rn) Service: (none) Author Type: Registered Nurse Type: Progress Notes Filed: 05/03/2018 11:12 AM Note Text: PRIMARY CARE COORDINATION FOLLOW-UP NOTE Provider Action/FYI 1. Call to Pt, Spk with Radha who noted she spk with Nurse from [facility] Cardiovascular Nurse 05/02/18 and Pt declined need for ER visit, states after Pt rested he felt better and had decreased coughing, denies current CP or Sob, has right ankle swelling denies swelling on left foot / leg. Denies other unusual symptoms 2. Pt is keeping Appt 05/03/18 with José Miguel Stanton CNP [facility]. 3. Pt would like an order consult to [facility] Dietitian Patient identified by name and date of . YES Spoke to spouse Signature Jesusita Hayden RN May 03, 2018 CNPTOUTREACH Observed: 05/03/2018 Status: COMPLETED Source: [place] 12:00 AM [facility] REPOSITORY Patient Outreach (FAMPWS) RICK GEORGE JR. ([id number]) 1960 M Date Time Provider Department 05/03/18 [facility] (RN) FAMPWS During your visit today, we recorded the following information about you: Jesusita Hayden RN 05/03/2018 11:12 AM Signed PRIMARY CARE COORDINATION FOLLOW-UP NOTE Provider Action/FYI 1. Call to Pt, Spk with Radha who noted she spk with Nurse from [facility] Cardiovascular Nurse 05/02/18 and Pt declined need for ER visit, states after Pt rested he felt better and had decreased coughing, denies current CP or Sob, has right ankle swelling denies swelling on left foot / leg. Denies other unusual symptoms 2. Pt is keeping Appt 05/03/18 with José Miguel Stanton CNP [facility]. 3. Pt would like an order consult to [facility] Dietitian Patient identified by name and date of . YES Spoke to spouse Signature Jesusita Hayden RN May 03, 2018 Jose Juan Stanton APRN.CNP 05/03/2018 11:12 AM Signed Noted Jose Juan Stanton APRN.CNP Allergies As of Date: 05/03/2018 Noted Allergy Reaction LIPITOR (ATORVASTATIN CALCIUM) 01/07/2015 15 - Contraindication- Medical Olsen* Comments: Elevated LFTs and elevated CK level METFORMIN 03/01/2013 6 - Diarrhea Date Reviewed: 05/03/2018 Reviewed by: Tatiana Steven [employer] Manager - Fully Assessed Reason for Visit: [facility] Follow Up [8611] Prescriptions as of 05/03/2018 Sig: ROSUVASTATIN 10 MG TABLET Take 1 tablet by mouth every * METOPROLOL TARTRATE 25 MG TAB* Take 0.5 tablets by mouth abdiaziz* OXYCODONE-ACETAMINOPHEN 5 MG-* Take 1 tablet by mouth every * NORTRIPTYLINE 50 MG CAPSULE TAKE ONE CAPSULE BY MOUTH ONC* CHOLECALCIFEROL (VITAMIN D3) * Take 1 capsule by mouth once * CETIRIZINE 10 MG TABLET TAKE ONE TABLET BY MOUTH ONCE* X CETIRIZINE 10 MG CAPSULE Take 1 capsule by mouth once * ASPIRIN 81 MG CHEWABLE TABLET 2 tablets by ORAL/FEEDING TUB* ACETAMINOPHEN 325 MG TABLET 2 tablets by ORAL/FEEDING TUB* GABAPENTIN 300 MG CAPSULE Take 3 capsules by mouth ever* SENNOSIDES 8.6 MG-DOCUSATE SO* Take 1 tablet by mouth twice * THERAPEUTIC MULTIVITAMIN TABL* Take 1 tablet by mouth daily * X VANCOMYCIN 25 MG/ML ORAL LIQU* Take 5 mL by mouth four times* TADALAFIL 20 MG TABLET Take 1 tablet by mouth once d* BLOOD SUGAR DIAGNOSTIC STRIPS Check blood glucose three georgie* BASAGLAR KWIKPEN U-100 INSULI* INJECT 20 UNITS SUBCUTANEOUSL* HUMALOG KWIKPEN (U-100) INSUL* INJECT 12 TO 20 UNITS SUBCUTA* PEN NEEDLE, DIABETIC 31 GAUGE* USE TO GIVE INSULIN INJECTION* FREESTYLE LANCETS 28 GAUGE USE DIRECTED 3 TO 4 TIMES * BACLOFEN 20 MG TABLET Take 20 mg by mouth three georgie* BLOOD-GLUCOSE METER KIT Freestyle LITE Meter Kit - Dx* Problem List As Of Date 05/03/2018 Noted Resolved Diabetes 1.5, 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 Hyperlipidemia [E78.5] INVALID FOR* Priority: E More... Diabetes type 2, controlled [E11.9] INVALID FOR* Lower back pain [M54.5] INVALID FOR* Priority: D More... Hearing loss [H91.90] INVALID FOR* Dizziness [R42] INVALID FOR* Other musculoskeletal symptoms referable to mixon*INVALID FOR* Hereditary and idiopathic peripheral neuropathy*INVALID FOR* Vitamin B12 deficiency [E53.8] INVALID FOR* PAD (peripheral artery disease) ([facility]) [I73.9] INVALID FOR* Priority: C Small vessel disease (HCC) [I99.9] INVALID FOR* DM (diabetes mellitus), type 2 with neurologica*INVALID FOR* Priority: E More... Diabetes mellitus with background retinopathy (*INVALID FOR*07/13/2016 Type 1 diabetes mellitus with mild nonprolifera*INVALID FOR*06/08/2016 Other vitreous opacities - Both Eyes [H43.399] INVALID FOR* Lens replaced by other means - Both Eyes [Z96.1]INVALID FOR*07/13/2016 CVA (cerebral vascular accident) (HCC) [I63.9] INVALID FOR* Type 2 diabetes, controlled, with neuropathy (H*INVALID FOR* Type 2 diabetes mellitus with diabetic neuropat*INVALID FOR*01/29/2016 Type 2 diabetes mellitus with diabetic polyneur*INVALID FOR* After-cataract obscuring vision [H26.499] INVALID FOR* Pseudophakia of both eyes [Z96.1] INVALID FOR* Hyperopia [H52.00] INVALID FOR* Astigmatism, regular [H52.229] INVALID FOR* Vitreous floaters of both eyes [H43.393] INVALID FOR* Meibomian gland dysfunction (MGD) of upper and *INVALID FOR* NSTEMI (non-ST elevated myocardial infarction) *INVALID FOR* Priority: C More... Coronary artery disease involving [place] ricardo*INVALID FOR* Priority: A More... C. difficile colitis [A04.72] INVALID FOR* Priority: I More... More... Nicotine use disorder, F17.2 [F17.200] INVALID FOR* Priority: B More... Hypotension [I95.9] INVALID FOR*04/14/2018 Priority: C More... Cardiac insufficiency (HCC) [I50.9] INVALID FOR*04/14/2018 Priority: C More... Atelectasis [J98.11] INVALID FOR* Priority: B More... Post-operative pain [G89.18] INVALID FOR* Priority: D More... Depression [F32.9] INVALID FOR* Priority: D More... Transition of care performed with sharing of cl*INVALID FOR* Priority: Moderate More... Bilateral pneumothoraces [J93.9] INVALID FOR* Priority: B More... Discharge planning issues [Z02.9] INVALID FOR* More... Encounter Status:Closed by TATIANA STEVEN CMA on 05/03/18 JAZLYN Observed: 05/03/2018 Status: COMPLETED Source: [place] 12:00 AM [facility] REPOSITORY Patient Outreach (FAMPWS) RICK GEORGE JR. ([id number]) 1960 M Date Time Provider Department 05/03/18 [facility] (RN) FAMPWS During your visit today, we recorded the following information about you: Jesusita Hayden RN 05/03/2018 5:51 PM Signed PRIMARY CARE COORDINATION IN OFFICE VISIT WITH PCP Patient has been identified by name and date of . PCP Assessment/Plan: Reviewed PCP plan with patient using Teach Back ASSESSMENT/PLAN: 1. Coronary artery disease involving [place] coronary artery of [place] heart with unstable angina pectoris (HCC) - ICD9: 414.01, 411.1, ICD10: I25.110 (primary diagnosis) - PVR ANK PRESS [facility]- per vascular request in [facility] - CONSULT TO NUTRITION THERAPY- per patient request - continue current medications ? 2. NSTEMI (non-ST elevated myocardial infarction) ([facility]) - ICD9: 410.70, ICD10: I21.4 - as above - continue current medications ? 3. Anemia, unspecified type - ICD9: 285.9, ICD10: D64.9 - CBC + DIFF ? 4. Problem involving surgical incision - ICD9: 998.83, ICD10: T81.89XA - SILVER SULFADIAZINE 1 % TOPICAL CREAM ? - Continue activity restriction - Apply ointment to left incision site as ordered - Recommend frequent rest periods - Consult dietitian - Schedule PVRs for Dr. Reagan - Complete stool sample for c-diff - Follow up with PCP and cardiothoracic surgery as scheduled - Call office on Tuesday with update on symptoms ? Next Office Visit: 05/10/[address] Escalante Plan For Next Call: F/u Stool Specimen for C-Diff Expedite sooner appt. with Dietitian, current appt 07/10/18- 05/03/18 Message sent to Nieves Salter to verify if an earlier appt is available Mail information related to foods high in Sodium and provide Dietary Instruction prior to Dietitian Appt CBC in 3 weeks Health Education and promotion of wellness Early symptom awareness, prevent complications and hospitalization Jesusita Hayden RN May 03, 2018 Allergies As of Date: 05/03/2018 Noted Allergy Reaction LIPITOR (ATORVASTATIN CALCIUM) 01/07/2015 15 - Contraindication- Medical Olsen* Comments: Elevated LFTs and elevated CK level METFORMIN 03/01/2013 6 - Diarrhea Date Reviewed: 05/03/2018 Reviewed by: Tatiana Steven [employer] Manager - Fully Assessed 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 [9764] Cmt: Cough Reason For Visit History Recorded Prescriptions as of 05/03/2018 Sig: SILVER SULFADIAZINE 1 % TOPIC* Apply 1 application to affect* ROSUVASTATIN 10 MG TABLET Take 1 tablet by mouth every * METOPROLOL TARTRATE 25 MG TAB* Take 0.5 tablets by mouth abdiaziz* OXYCODONE-ACETAMINOPHEN 5 MG-* Take 1 tablet by mouth every * NORTRIPTYLINE 50 MG CAPSULE TAKE ONE CAPSULE BY MOUTH ONC* CHOLECALCIFEROL (VITAMIN D3) * Take 1 capsule by mouth once * CETIRIZINE 10 MG TABLET TAKE ONE TABLET BY MOUTH ONCE* ASPIRIN 81 MG CHEWABLE TABLET 2 tablets by ORAL/FEEDING TUB* ACETAMINOPHEN 325 MG TABLET 2 tablets by ORAL/FEEDING TUB* GABAPENTIN 300 MG CAPSULE Take 3 capsules by mouth ever* SENNOSIDES 8.6 MG-DOCUSATE SO* Take 1 tablet by mouth twice * THERAPEUTIC MULTIVITAMIN TABL* Take 1 tablet by mouth daily * TADALAFIL 20 MG TABLET Take 1 tablet by mouth once d* BLOOD SUGAR DIAGNOSTIC STRIPS Check blood glucose three georgie* BASAGLAR KWIKPEN U-100 INSULI* INJECT 20 UNITS SUBCUTANEOUSL* HUMALOG KWIKPEN (U-100) INSUL* INJECT 12 TO 20 UNITS SUBCUTA* PEN NEEDLE, DIABETIC 31 GAUGE* USE TO GIVE INSULIN INJECTION* FREESTYLE LANCETS 28 GAUGE USE DIRECTED 3 TO 4 TIMES * BACLOFEN 20 MG TABLET Take 20 mg by mouth three georgie* BLOOD-GLUCOSE METER KIT Freestyle LITE Meter Kit - Dx* Problem List As Of Date 05/03/2018 Noted Resolved Diabetes 1.5, 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 Hyperlipidemia [E78.5] INVALID FOR* Priority: E More... Diabetes type 2, controlled [E11.9] INVALID FOR* Lower back pain [M54.5] INVALID FOR* Priority: D More... Hearing loss [H91.90] INVALID FOR* Dizziness [R42] INVALID FOR* Other musculoskeletal symptoms referable to mixon*INVALID FOR* Hereditary and idiopathic peripheral neuropathy*INVALID FOR* Vitamin B12 deficiency [E53.8] INVALID FOR* PAD (peripheral artery disease) ([facility]) [I73.9] INVALID FOR* Priority: C Small vessel disease ([facility]) [I99.9] INVALID FOR* DM (diabetes mellitus), type 2 with neurologica*INVALID FOR* Priority: E More... Diabetes mellitus with background retinopathy (*INVALID FOR*07/13/2016 Type 1 diabetes mellitus with mild nonprolifera*INVALID FOR*06/08/2016 Other vitreous opacities - Both Eyes [H43.399] INVALID FOR* Lens replaced by other means - Both Eyes [Z96.1]INVALID FOR*07/13/2016 CVA (cerebral vascular accident) ([facility]) [I63.9] INVALID FOR* Type 2 diabetes, controlled, with neuropathy (H*INVALID FOR* Type 2 diabetes mellitus with diabetic neuropat*INVALID FOR*01/29/2016 Type 2 diabetes mellitus with diabetic polyneur*INVALID FOR* After-cataract obscuring vision [H26.499] INVALID FOR* Pseudophakia of both eyes [Z96.1] INVALID FOR* Hyperopia [H52.00] INVALID FOR* Astigmatism, regular [H52.229] INVALID FOR* Vitreous floaters of both eyes [H43.393] INVALID FOR* Meibomian gland dysfunction (MGD) of upper and *INVALID FOR* NSTEMI (non-ST elevated myocardial infarction) *INVALID FOR* Priority: C More... Coronary artery disease involving [place] ricardo*INVALID FOR* Priority: A More... C. difficile colitis [A04.72] INVALID FOR* Priority: I More... More... Nicotine use disorder, F17.2 [F17.200] INVALID FOR* Priority: B More... Hypotension [I95.9] INVALID FOR*04/14/2018 Priority: C More... Cardiac insufficiency (HCC) [I50.9] INVALID FOR*04/14/2018 Priority: C More... Atelectasis [J98.11] INVALID FOR* Priority: B More... Post-operative pain [G89.18] INVALID FOR* Priority: D More... Depression [F32.9] INVALID FOR* Priority: D More... Transition of care performed with sharing of cl*INVALID FOR* Priority: Moderate More... Bilateral pneumothoraces [J93.9] INVALID FOR* Priority: B More... Discharge planning issues [Z02.9] INVALID FOR* More... Encounter Status:Closed by JESUSITA HAYDEN on 05/03/18 PROGRESS Observed: 05/02/2018 Status: COMPLETED Source: [place] 3:41 PM [facility] HNO ID: [id number] Author: Catracho Mc (Rn) Service: (none) Author Type: Registered Nurse Type: Progress Notes Filed: 05/08/2018 11:30 AM Note Text: PRIMARY CARE COORDINATION QUICK NOTE Provider Action/FYI Please advise. Patient identified by name and date . Jesusita Hayden RN May 02, 2018 3:42 PM PROGRESS Observed: 05/02/2018 Status: COMPLETED Source: [place] 2:33 PM [facility] HNO ID: [id number] Author: Jose Juan Stanton Service: (none) Author Type: Nurse Practitioner Type: Progress Notes Filed: 05/08/2018 11:30 AM Note Text: Noted. Please have patient inform CTS of symptoms as well. Jose Juan Stanton APRN.CNP PROGRESS Observed: 05/02/2018 Status: COMPLETED Source: [place] 10:49 AM [facility] HNO ID: [id number] Author: Catracho Mc (Rn) Service: (none) Author Type: Registered Nurse Type: Progress Notes Filed: 05/08/2018 11:30 AM Note Text: PRIMARY CARE COORDINATION FOLLOW-UP NOTE Provider Action/FYI 1. Returned call x2 to Pt and Radha, left message noting Pt is having a dry hacking cough, chills started Tuesday 2. Spk with Pt who reports Pt is taking Robitussin DM noting for continuous dry coughing, denies CP, or Sob, denies edema. Pt is having chills, used a full bottle of cough syrup used since 04/30/18 wants to verify what he can take to help with the dry cough. reports his CXR and EKG completed 04/28/18 were good and his stiches were removed. Radha is unsure if he has a fever their thermometer is not working. 3. Pt denies Pain but is taking 2 Tylenol 325 mg po as needed, is unsure how often , but states he is stressed and more wray. Pt is maintaining restrictions by Cardiothoracic surgeon. is driving and lifting as needed) 4. Appt scheduled for 05/03/18 with José Miguel Stanton CNP for 40 minutes( Approved by José Miguel Stanton CNP) Patient identified by name and date of . YES Spoke to spouse [employer] Agent plan for next outreach: Monitor for new or unusual Symptoms Signature Jesusita Hayden RN May 02, 2018 CNPTOUTREACH Observed: 05/02/2018 Status: COMPLETED Source: [place] 12:00 AM [facility] REPOSITORY Patient Outreach (FAMPWS) RICK GEORGE JR. ([id number]) 1960 M Date Time Provider Department 05/02/18 [facility] (RN) [facility] During your visit today, we recorded the following information about you: Jesusita Hayden RN 05/08/2018 11:30 AM Signed PRIMARY CARE COORDINATION FOLLOW-UP NOTE Provider Action/FYI 1. Returned call x2 to Pt and Radha, left message noting Pt is having a dry hacking cough, chills started Tuesday 2. Spk with Pt who reports Pt is taking Robitussin DM noting for continuous dry coughing, denies CP, or Sob, denies edema. Pt is having chills, used a full bottle of cough syrup used since 04/30/18 wants to verify what he can take to help with the dry cough. reports his CXR and EKG completed 04/28/18 were good and his stiches were removed. Radha is unsure if he has a fever their thermometer is not working. 3. Pt denies Pain but is taking 2 Tylenol 325 mg po as needed, is unsure how often , but states he is stressed and more wray. Pt is maintaining restrictions by Cardiothoracic surgeon. is driving and lifting as needed) 4. Appt scheduled for 05/03/18 with José Miguel Stanton CNP for 40 minutes( Approved by José Miguel Stanton CNP) Patient identified by name and date of . YES Spoke to spouse [employer] Agent plan for next outreach: Monitor for new or unusual Symptoms Signature Jesusita Hayden RN May 02, 2018 Jose Juan Stanton APRN.AD 05/08/2018 11:30 AM Signed Noted. Please have patient inform CTS of symptoms as well. PABLITO Morel RN 05/08/2018 11:30 AM Signed PRIMARY CARE COORDINATION QUICK NOTE Provider Action/FYI Please advise. Patient identified by name and date . Jesusita Hayden RN May 02, 2018 3:42 PM Allergies As of Date: 05/02/2018 Noted Allergy Reaction LIPITOR (ATORVASTATIN CALCIUM) 01/07/2015 15 - Contraindication- Medical Olsen* Comments: Elevated LFTs and elevated CK level METFORMIN 03/01/2013 6 - Diarrhea Date Reviewed: 04/28/2018 Reviewed by: Pam Ty Ma - Fully Assessed Reason for Visit: Liquid Fertilizer Servicer Hospital Follow Up [3610] Cmt: Dry cough Reason For Visit History Recorded Prescriptions as of 05/02/2018 Sig: ROSUVASTATIN 10 MG TABLET Take 1 tablet by mouth every * METOPROLOL TARTRATE 25 MG TAB* Take 0.5 tablets by mouth abdiaziz* OXYCODONE-ACETAMINOPHEN 5 MG-* Take 1 tablet by mouth every * NORTRIPTYLINE 50 MG CAPSULE TAKE ONE CAPSULE BY MOUTH ONC* CHOLECALCIFEROL (VITAMIN D3) * Take 1 capsule by mouth once * CETIRIZINE 10 MG TABLET TAKE ONE TABLET BY MOUTH ONCE* X CETIRIZINE 10 MG CAPSULE Take 1 capsule by mouth once * ASPIRIN 81 MG CHEWABLE TABLET 2 tablets by ORAL/FEEDING TUB* ACETAMINOPHEN 325 MG TABLET 2 tablets by ORAL/FEEDING TUB* GABAPENTIN 300 MG CAPSULE Take 3 capsules by mouth ever* SENNOSIDES 8.6 MG-DOCUSATE SO* Take 1 tablet by mouth twice * THERAPEUTIC MULTIVITAMIN TABL* Take 1 tablet by mouth daily * X VANCOMYCIN 25 MG/ML ORAL LIQU* Take 5 mL by mouth four times* TADALAFIL 20 MG TABLET Take 1 tablet by mouth once d* BLOOD SUGAR DIAGNOSTIC STRIPS Check blood glucose three georgie* BASAGLAR KWIKPEN U-100 INSULI* INJECT 20 UNITS SUBCUTANEOUSL* HUMALOG KWIKPEN (U-100) INSUL* INJECT 12 TO 20 UNITS SUBCUTA* PEN NEEDLE, DIABETIC 31 GAUGE* USE TO GIVE INSULIN INJECTION* FREESTYLE LANCETS 28 GAUGE USE DIRECTED 3 TO 4 TIMES * BACLOFEN 20 MG TABLET Take 20 mg by mouth three georgie* BLOOD-GLUCOSE METER KIT Freestyle LITE Meter Kit - Dx* Problem List As Of Date 05/02/2018 Noted Resolved Diabetes 1.5, 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 Hyperlipidemia [E78.5] INVALID FOR* Priority: E More... Diabetes type 2, controlled [E11.9] INVALID FOR* Lower back pain [M54.5] INVALID FOR* Priority: D More... Hearing loss [H91.90] INVALID FOR* Dizziness [R42] INVALID FOR* Other musculoskeletal symptoms referable to mixon*INVALID FOR* Hereditary and idiopathic peripheral neuropathy*INVALID FOR* Vitamin B12 deficiency [E53.8] INVALID FOR* PAD (peripheral artery disease) (HCC) [I73.9] INVALID FOR* Priority: C Small vessel disease (HCC) [I99.9] INVALID FOR* DM (diabetes mellitus), type 2 with neurologica*INVALID FOR* Priority: E More... Diabetes mellitus with background retinopathy (*INVALID FOR*07/13/2016 Type 1 diabetes mellitus with mild nonprolifera*INVALID FOR*06/08/2016 Other vitreous opacities - Both Eyes [H43.399] INVALID FOR* Lens replaced by other means - Both Eyes [Z96.1]INVALID FOR*07/13/2016 CVA (cerebral vascular accident) ([facility]) [I63.9] INVALID FOR* Type 2 diabetes, controlled, with neuropathy (H*INVALID FOR* Type 2 diabetes mellitus with diabetic neuropat*INVALID FOR*01/29/2016 Type 2 diabetes mellitus with diabetic polyneur*INVALID FOR* After-cataract obscuring vision [H26.499] INVALID FOR* Pseudophakia of both eyes [Z96.1] INVALID FOR* Hyperopia [H52.00] INVALID FOR* Astigmatism, regular [H52.229] INVALID FOR* Vitreous floaters of both eyes [H43.393] INVALID FOR* Meibomian gland dysfunction (MGD) of upper and *INVALID FOR* NSTEMI (non-ST elevated myocardial infarction) *INVALID FOR* Priority: C More... Coronary artery disease involving [place] ricardo*INVALID FOR* Priority: A More... C. difficile colitis [A04.72] INVALID FOR* Priority: I More... More... Nicotine use disorder, F17.2 [F17.200] INVALID FOR* Priority: B More... Hypotension [I95.9] INVALID FOR*04/14/2018 Priority: C More... Cardiac insufficiency (HCC) [I50.9] INVALID FOR*04/14/2018 Priority: C More... Atelectasis [J98.11] INVALID FOR* Priority: B More... Post-operative pain [G89.18] INVALID FOR* Priority: D More... Depression [F32.9] INVALID FOR* Priority: D More... Transition of care performed with sharing of cl*INVALID FOR* Priority: Moderate More... Bilateral pneumothoraces [J93.9] INVALID FOR* Priority: B More... Discharge planning issues [Z02.9] INVALID FOR* More... Encounter Status:Closed by JESUSITA HAYDEN on 05/08/18 PROGRESS Observed: 04/28/2018 Status: COMPLETED Source: [place] 1:58 PM [facility] [place] REPOSITORY HNO ID: [id number] Author: Chadwick (Ad) Summer Service: (none) Author Type: Nurse Practitioner Type: Progress Notes Filed: 04/28/2018 2:51 PM Note Text: [facility] [place] CTS Post op Follow up Rick George Jr. is a 58 year old male who presents who is here for post operative follow up HPI: S/P on 04/12/2018 AGE: 58 ? ?SURGEON 1: Sammy Zhu M.D. OPERATION: CABG x3 MACK-LAD, SVG-OM, SVG-left PDA, Endoscopic vein harvest. ? Discharged on 04/19/2018 PAST MEDICAL HISTORY Diagnosis Date - Cataract b/l, eye exam 05/29/13 - CTS (carpal tunnel syndrome) 10/2013 b/l, chronic, Dr. 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 Mazin Hinojosa Neuro, likely from DM and Vitamin B12 defic - Stroke ([facility]) 10/01/13 - Ulnar neuropathy 10/2013 b/l, chronic, Dr. Mazin Hinojosa EMG - Vitamin D deficiency 11/2013 PAST SURGICAL HISTORY Procedure Laterality Date - DISCISSION,2ND CATARACT,LASER 06/07/2013 Yag Capsulotomy-Right eye - LASER, SECONDARY CATARACT 2006 OU - PAST SURGICAL HISTORY OF 02/2013 Amputation Right Gt toe ALLERGIES Allergen Reactions - Lipitor [Atorvastat* Contraindication-Medical Surgical Elevated LFTs and elevated CK level - Metformin Diarrhea Current Outpatient Prescriptions: nortriptyline (PAMELOR) 50 mg capsule TAKE ONE CAPSULE BY MOUTH ONCE DAILY AT BEDTIME Cetirizine 10 mg cap Take 1 capsule by mouth once daily. Cholecalciferol, Vitamin D3, 5,000 unit cap Take 1 capsule by mouth once daily. cetirizine (ZYRTEC) 10 mg tablet TAKE ONE TABLET BY MOUTH ONCE DAILY aspirin 81 mg chewable tablet 2 tablets by ORAL/FEEDING TUBE route once daily. acetaminophen (TYLENOL) 325 mg tablet 2 tablets by ORAL/FEEDING TUBE route every 4 hours as needed. gabapentin (NEURONTIN) 300 mg capsule Take 3 capsules by mouth every 8 hours for 30 days. rosuvastatin (CRESTOR) 10 mg tablet Take 1 tablet by mouth every 48 hours. metoprolol tartrate, short acting, (LOPRESSOR) 25 mg tablet Take 0.5 tablets by mouth every 12 hours. therapeutic multivitamin (THERA VITAMIN) tablet Take 1 tablet by mouth daily with breakfast. blood sugar diagnostic (FREESTYLE LITE STRIPS) test strip Check blood glucose three times daily. Dx: E11.42, Insulin dependent BASAGLAR KWIKPEN U-100 INSULIN 100 unit/mL (3 mL) inpn INJECT 20 UNITS SUBCUTANEOUSLY ONCE DAILY AT BEDTIME HUMALOG KWIKPEN 100 unit/mL inpn INJECT 12 TO 20 UNITS SUBCUTANEOUSLY WITH MEALS DIRECTED insulin needles, DISPOSABLE, (BD INSULIN PEN NEEDLE UF) 31 gauge x 5/16 ndle USE TO GIVE INSULIN INJECTIONS 4 TIMES DAILY FREESTYLE LANCETS 28 gauge misc USE DIRECTED 3 TO 4 TIMES DAILY TO TEST BLOOD GLUCOSE baclofen (LIORESAL) 20 mg tablet Take 20 mg by mouth three times daily. Blood-Glucose Meter (FREESTYLE LITE METER) monitoring kit Freestyle LITE Meter Kit - Dx: Type 2 DM - Controlled E11.9 senna-docusate (SENNA-S) 8.6-50 mg per tablet Take 1 tablet by mouth twice daily. (Patient not taking: Reported on 04/28/2018 ) vancomycin (VANCOCIN) 25 mg/mL liqd Take 5 mL by mouth four times daily. (Patient not taking: Reported on 04/28/2018 ) Tadalafil (CIALIS) 20 mg tab(s) Take 1 tablet by mouth once daily. Current Facility-Administered Medications: cyanocobalamin 1,000 mcg injection 1,000 mcg INTRAMUSCULAR q 4 WEEKS Chief Complaints: Discharge Post Operative Course: Pain scale :No: 0 on a scale of 0 to 10 Appetite: appetite good Activity: Walking ad jame around the house Elimination: normal, no constipation Sleep: no problems with sleep Mood: normal Incisions/Wounds: Not applicable Review of Systems: HEENT: No complaints offered and Negative for fevers since discharge Cardiac: Denies significant problems Respiratory: denies patient denies a history of any respiratory problems Musculoskeletal: No history of joint swelling, joint pain, or loss of range of motion. Neuro: Denies neurological complaints Physical Exam: BP 118/74 (BP Site: Left Arm, BP Position: Sitting, BP Cuff Size: Regular Adult) Pulse 95 Temp 36.8 ?C (98.2 ?F) (Oral) Wt 87.1 kg (192 lb) SpO2 99% BMI 27.55 kg/m? Appearance: well developed, well nourished Neck: No neck vein distention Cardiac: regular S1, S2 Lungs: Clear breath sounds bilaterally without wheeze or dullness Abdomen: soft, non tender Extremities: No edema Sternum: stable Sternotomy site: healing Wound: NA SV Melba sites: healing Procedures: Sutures removed from chest tube sites without difficulty. IMPRESSION AND PLAN: S/P on 04/12/2018 AGE: 58 ? ?SURGEON 1: Sammy Zhu M.D. OPERATION: CABG x3 MACK-LAD, SVG-OM, SVG-left PDA, Endoscopic vein harvest. ? Discharged on 04/19/2018 1. Coronary artery disease involving [place] coronary artery of [place] heart with unstable angina pectoris (HCC) (primary encounter diagnosis); on ASA statin and BB ECG 04/28/2018 NORMAL SINUS RHYTHM NONSPECIFIC T WAVE ABNORMALITY PROLONGED QT INTERVAL OR TU FUSION, CONSIDER HYPOKALEMIA ABNORMAL ECG 2. PAD (peripheral artery disease) ([facility]): on ASA and statin 3. Atelectasis: Chest XR 04/28/2018- in process 4. Post-operative pain: have some right sided flank pain; give 10 pills of perocet to help with pain at night 5. DM (diabetes mellitus), type 2 with neurological complications (HCC): on SSI insulin and lantus 6. C. difficile colitis: C. Diff positive at OSH. afebrile, no diarrhea ID following, continue PO vancomycin. last dose on 04/20 ? Summary: Post op care and discharge orders reviewed with the patient- all questions were answered. Surgical sites healing without complication Discussed new medications, dosage, route of administration and side effects Reviewed walking program at home Reviewed diet guidelines for recovery from surgery Return to the clinic prn with signs or symptoms of infection, fevers, SOB, or pleural effusion SBE prophylaxis reviewed Chadwick Wheeler APRN.TRACK LABORER CBC Collected: 04/28/2018 Status: F Source: [place] 1:47 PM [facility] REPOSITORY TYPE CODE TESTS RESULT OUT OF REFERENCE UNITS RANGE LAB WBC 3.70-11.00 k/uL WBC High 11.20 LAB RBC 4.20-6.00 m/uL Low RBC 3.40 LAB HGB 13.0-17.0 g/dL Low Hemoglobin 10.2 LAB HCT 39.0-51.0 % Low Hematocrit 34.4 LAB MCV 80.0-100.0 fL MCV High 101.2 LAB MCH 26.0-34.0 pG MCH 30.0 LAB MCHC 30.5-36.0 g/dL Low MCHC 29.7 LAB RDWCV 11.5-15.0 % RDW-CV High 15.4 LAB PLTCT 150-400 k/uL Platelet High Count 477 LAB MPV 9.0-12.7 fL MPV 9.4 LAB ABSNUC <0.01 k/uL Absolute nRBC <0.01 Performed By: #### CBC, CMP #### [facility] [address] [id number] COMP METABOLIC PANEL Collected: 04/28/2018 Status: F Source: [place] 1:47 PM [facility] REPOSITORY TYPE CODE TESTS RESULT OUT OF REFERENCE UNITS RANGE LAB TP 6.3-8.0 g/dL Protein, Total 7.6 LAB ALB 3.9-4.9 g/dL Albumin 4.2 LAB CA 8.5-10.2 mg/dL Calcium, Total 9.6 LAB TBIL 0.2-1.3 mg/dL Bilirubin, Total 0.4 LAB ALKP 36-108 U/L Alkaline Phosphatase 90 LAB AST 14-40 U/L AST 15 LAB GLU 74-99 mg/dL Glucose High 141 Result Comment: The [place] [employer] (ADA) provides guidance for cutoff values for fasting glucose and random glucose. The ADA defines fasting as no caloric intake for at least 8 hours. Fas ting plasma glucose results between 100 to 125 mg/dL indicate increased risk for diabetes (prediabetes). Fasting plasma glucose results greater than or equal to 126 mg/dL meet the criteria for diagnosis of diabetes. In the absence of unequivocal hyperglycemia, results should be confirmed by repeat testing. In a patient with classic symptoms of hyperglycemia or hyperglycemic crisis, random plasma glucose results greater than or equal to 200 mg/dL meet the criteria for diagnosis of diabetes. Reference: Standards of Medical Care in Diabetes 2016, [place] [employer]. Diabetes Care. 2016.39(Suppl 1). LAB BUN 9-24 mg/dL BUN 16 LAB CRET 0.73-1.22 mg/dL Creatinine 0.89 LAB NA 136-144 mmol/L Sodium High 146 LAB K 3.7-5.1 mmol/L Potassium 4.9 LAB CL 97-105 mmol/L Chloride 105 LAB CO2 22-30 mmol/L CO2 30 LAB AGAP 9-18 mmol/L Anion Gap 11 LAB ALT 10-54 U/L ALT 26 LAB GFRAA eGFR- Amer. >60 LAB GFRNAA . eGFR-All Other Races >60 Result Comment: eGFR (Estimated GFR) Units of measure: mL/min/1.73 meters squared eGFR is derived from the reexpressed MDRD Study equation using the following parameters: serum creatinine, age, gender and race. The creatinine assay has been calibrated to be traceable to IDMS. An eGFR <60 mL/min/1.73m2 for >3 months is consistent with chronic kidney disease. Refer to KDOQI guidelines for clinical interpretation. In patients with unstable renal function, e.g. those with acute kidney injury, the eGFR may not accurately reflect actual GFR. Performed By: #### CBC, CMP #### [facility] [address] [id number] PROGRESS Observed: 04/28/2018 Status: COMPLETED Source: [place] 1:34 PM [facility] REPOSITORY HNO ID: [id number] Author: Chitra Norwood Rt Service: (none) Author Type: (none) Type: Progress Notes Filed: 04/28/2018 1:34 PM Note Text: Radiology Service Progress Note PATIENT NAME: Rick George Jr. DATE OF SERVICE: April 28, 2018 TIME: 1:34 PM PATIENT IDENTITY VERIFICATION COMPLETED USING TWO (2) METHODS: Patient confirmed name verbally and Date of . PATIENT GENDER DATA: Male PATIENT RELEVANT IMPLANT DATA REVIEWED: Not Applicable RADIOLOGY DEPARTMENT: General X-ray: Exam(s) Completed: Chest X-Ray PERIPHERAL IV DATA: Not applicable SIGNED BY: Chitra Norwood Rt April 28, 2018 1:34 PM XR CHEST 2V FRONTAL/LAT Observed: 04/28/2018 Status: F Source: [place] 1:33 PM [facility] REPOSITORY * * *Final Report* * * DATE OF EXAM: Apr 28 2018 1:33PM [id number] - XR CHEST 2V FRONTAL/LAT / PROCEDURE REASON: Encounter for follow-up examination after completed treatment for conditions oth * * * * Physician Interpretation * * * * EXAMINATION: CHEST RADIOGRAPH (2 VIEW FRONTAL and LATERAL) Clinical History: Encounter for follow-up examination after completed treatment for conditions other than malignant neoplasm M: [id number]_4 Comparison: prior chest radiograph dated 04/19/2018 RESULT: Lines, tubes, and devices: N/A Lungs and pleura: No consolidation. No lung mass. No pleural effusion. No pneumothorax. Mild basilar atelectasis. Cardiomediastinal silhouette: Cardiac silhouette within normal limits. Other: Mild degenerative changes of the thoracic spine. Upper abdominal air-filled loops of bowel. IMPRESSION: See Result. Animal Technician: PSCB Transcribe Date/Time: Apr 28 2018 2:46P Dictated by : BLANCO HOLLY MD This examination was interpreted and the report reviewed and electronically signed by: BLANCO HOLLY MD on Apr 28 2018 2:47PM EST [id number] CNOV Observed: 04/28/2018 Status: COMPLETED Source: [place] 1:30 PM [facility] REPOSITORY Office Visit (THOSMN) RICK GEORGE JR. ([id number]) 1960 M Date Time Provider Department 04/28/18 1:30 PM CHADWICK WHEELER (AD) THOSMDimitry During your visit today, we recorded the following information about you: Temperature Pulse Blood pressure Weight 98.2 degrees 95/minute 118/74 87.1 kg Chadwick Wheeler, LANDSCAPE CONTRACTOR.TRACK LABORER 04/28/2018 2:51 PM Signed [facility] Post op Follow up Rick George Jr. is a 58 year old male who presents who is here for post operative follow up HPI: S/P on 04/12/2018 AGE: 58 ? ?SURGEON 1: Sammy Zhu M.D. OPERATION: CABG x3 MACK-LAD, SVG-OM, SVG-left PDA, Endoscopic vein harvest. ? Discharged on 04/19/2018 PAST MEDICAL HISTORY Diagnosis Date - Cataract b/l, eye exam 05/29/13 - CTS (carpal tunnel syndrome) 10/2013 b/l, chronic, Dr. 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 Mazin Hinojosa Neuro, likely from DM and Vitamin B12 defic - Stroke ([facility]) 10/01/13 - Ulnar neuropathy 10/2013 b/l, chronic, Dr. Mazin Hinojosa EMG - Vitamin D deficiency 11/2013 PAST SURGICAL HISTORY Procedure Laterality Date - DISCISSION,2ND CATARACT,LASER 06/07/2013 Yag Capsulotomy-Right eye - LASER, SECONDARY CATARACT 2006 OU - PAST SURGICAL HISTORY OF 02/2013 Amputation Right Gt toe ALLERGIES Allergen Reactions - Lipitor [Atorvastat* Contraindication-Medical Surgical Elevated LFTs and elevated CK level - Metformin Diarrhea Current Outpatient Prescriptions: nortriptyline (PAMELOR) 50 mg capsule TAKE ONE CAPSULE BY MOUTH ONCE DAILY AT BEDTIME Cetirizine 10 mg cap Take 1 capsule by mouth once daily. Cholecalciferol, Vitamin D3, 5,000 unit cap Take 1 capsule by mouth once daily. cetirizine (ZYRTEC) 10 mg tablet TAKE ONE TABLET BY MOUTH ONCE DAILY aspirin 81 mg chewable tablet 2 tablets by ORAL/FEEDING TUBE route once daily. acetaminophen (TYLENOL) 325 mg tablet 2 tablets by ORAL/FEEDING TUBE route every 4 hours as needed. gabapentin (NEURONTIN) 300 mg capsule Take 3 capsules by mouth every 8 hours for 30 days. rosuvastatin (CRESTOR) 10 mg tablet Take 1 tablet by mouth every 48 hours. metoprolol tartrate, short acting, (LOPRESSOR) 25 mg tablet Take 0.5 tablets by mouth every 12 hours. therapeutic multivitamin (THERA VITAMIN) tablet Take 1 tablet by mouth daily with breakfast. blood sugar diagnostic (FREESTYLE LITE STRIPS) test strip Check blood glucose three times daily. Dx: E11.42, Insulin dependent BASAGLAR KWIKPEN U-100 INSULIN 100 unit/mL (3 mL) inpn INJECT 20 UNITS SUBCUTANEOUSLY ONCE DAILY AT BEDTIME HUMALOG KWIKPEN 100 unit/mL inpn INJECT 12 TO 20 UNITS SUBCUTANEOUSLY WITH MEALS DIRECTED insulin needles, DISPOSABLE, (BD INSULIN PEN NEEDLE UF) 31 gauge x 5/16 ndle USE TO GIVE INSULIN INJECTIONS 4 TIMES DAILY FREESTYLE LANCETS 28 gauge misc USE DIRECTED 3 TO 4 TIMES DAILY TO TEST BLOOD GLUCOSE baclofen (LIORESAL) 20 mg tablet Take 20 mg by mouth three times daily. Blood-Glucose Meter (FREESTYLE LITE METER) monitoring kit Freestyle LITE Meter Kit - Dx: Type 2 DM - Controlled E11.9 senna-docusate (SENNA-S) 8.6-50 mg per tablet Take 1 tablet by mouth twice daily. (Patient not taking: Reported on 04/28/2018 ) vancomycin (VANCOCIN) 25 mg/mL liqd Take 5 mL by mouth four times daily. (Patient not taking: Reported on 04/28/2018 ) Tadalafil (CIALIS) 20 mg tab(s) Take 1 tablet by mouth once daily. Current Facility-Administered Medications: cyanocobalamin 1,000 mcg injection 1,000 mcg INTRAMUSCULAR q 4 WEEKS Chief Complaints: Discharge Post Operative Course: Pain scale :No: 0 on a scale of 0 to 10 Appetite: appetite good Activity: Walking ad jame around the house Elimination: normal, no constipation Sleep: no problems with sleep Mood: normal Incisions/Wounds: Not applicable Review of Systems: HEENT: No complaints offered and Negative for fevers since discharge Cardiac: Denies significant problems Respiratory: denies patient denies a history of any respiratory problems Musculoskeletal: No history of joint swelling, joint pain, or loss of range of motion. Neuro: Denies neurological complaints Physical Exam: BP 118/74 (BP Site: Left Arm, BP Position: Sitting, BP Cuff Size: Regular Adult) Pulse 95 Temp 36.8 ?C (98.2 ?F) (Oral) Wt 87.1 kg (192 lb) SpO2 99% BMI 27.55 kg/m? Appearance: well developed, well nourished Neck: No neck vein distention Cardiac: regular S1, S2 Lungs: Clear breath sounds bilaterally without wheeze or dullness Abdomen: soft, non tender Extremities: No edema Sternum: stable Sternotomy site: healing Wound: NA SV Melba sites: healing Procedures: Sutures removed from chest tube sites without difficulty. IMPRESSION AND PLAN: S/P on 04/12/2018 AGE: 58 ? ?SURGEON 1: Sammy Zhu M.D. OPERATION: CABG x3 MACK-LAD, SVG-OM, SVG-left PDA, Endoscopic vein harvest. ? Discharged on 04/19/2018 1. Coronary artery disease involving [place] coronary artery of [place] heart with unstable angina pectoris (HCC) (primary encounter diagnosis); on ASA statin and BB ECG 04/28/2018 NORMAL SINUS RHYTHM NONSPECIFIC T WAVE ABNORMALITY PROLONGED QT INTERVAL OR TU FUSION, CONSIDER HYPOKALEMIA ABNORMAL ECG 2. PAD (peripheral artery disease) (HCC): on ASA and statin 3. Atelectasis: Chest XR 04/28/2018- in process 4. Post-operative pain: have some right sided flank pain; give 10 pills of perocet to help with pain at night 5. DM (diabetes mellitus), type 2 with neurological complications ([facility]): on SSI insulin and lantus 6. C. difficile colitis: C. Diff positive at OSH. afebrile, no diarrhea ID following, continue PO vancomycin. last dose on 04/20 ? Summary: Post op care and discharge orders reviewed with the patient- all questions were answered. Surgical sites healing without complication Discussed new medications, dosage, route of administration and side effects Reviewed walking program at home Reviewed diet guidelines for recovery from surgery Return to the clinic prn with signs or symptoms of infection, fevers, SOB, or pleural effusion SBE prophylaxis reviewed Chadwick Wheeler APRN.TRACK LABORER Referring Provider: SAMMY ZHU [[id number]] Allergies As of Date: 04/28/2018 Noted Allergy Reaction LIPITOR (ATORVASTATIN CALCIUM) 01/07/2015 15 - Contraindication- Medical Olsen* Comments: Elevated LFTs and elevated CK level METFORMIN 03/01/2013 6 - Diarrhea Date Reviewed: 04/28/2018 Reviewed by: Pam Ty Ma - Fully Assessed Reason for Visit: Follow Up [171] Primary Visit Diagnosis:Coronary artery disease involving [place] coronary artery of [place] heart with unstable angina pectoris ([facility]) [I25.110] Other Visit Diagnoses:PAD (peripheral artery disease) ([facility]) [I73.9] Atelectasis [J98.11] Post-operative pain [G89.18] DM (diabetes mellitus), type 2 with neurological complications ([facility]) [E11.49] C. difficile colitis [A04.72] Order(s):CONSULT TO NUTRITION THERAPY [9008] Order #: [id number]: 1 rosuvastatin (CRESTOR) 10 mg tabletTake 1 tablet by mouth every 48 hours.Disp: 15 tabletRfl: 0 metoprolol tartrate, short acting, (LOPRESSOR) 25 mg tabletTake 0.5 tablets by mouth every 12 hours.Disp: 30 tabletRfl: 0 oxyCODONE-acetaminophen (PERCOCET) 5-325 mg tabletTake 1 tablet by mouth every 4 hours as needed for Pain for up to 10 days.Disp: 10 tabletRfl: 0 Prescriptions as of 04/28/2018 Sig: ROSUVASTATIN 10 MG TABLET Take 1 tablet by mouth every * METOPROLOL TARTRATE 25 MG TAB* Take 0.5 tablets by mouth abdiaziz* NORTRIPTYLINE 50 MG CAPSULE TAKE ONE CAPSULE BY MOUTH ONC* CETIRIZINE 10 MG CAPSULE Take 1 capsule by mouth once * CHOLECALCIFEROL (VITAMIN D3) * Take 1 capsule by mouth once * CETIRIZINE 10 MG TABLET TAKE ONE TABLET BY MOUTH ONCE* ASPIRIN 81 MG CHEWABLE TABLET 2 tablets by ORAL/FEEDING TUB* ACETAMINOPHEN 325 MG TABLET 2 tablets by ORAL/FEEDING TUB* GABAPENTIN 300 MG CAPSULE Take 3 capsules by mouth ever* THERAPEUTIC MULTIVITAMIN TABL* Take 1 tablet by mouth daily * BLOOD SUGAR DIAGNOSTIC STRIPS Check blood glucose three georgie* BASAGLAR KWIKPEN U-100 INSULI* INJECT 20 UNITS SUBCUTANEOUSL* HUMALOG KWIKPEN (U-100) INSUL* INJECT 12 TO 20 UNITS SUBCUTA* PEN NEEDLE, DIABETIC 31 GAUGE* USE TO GIVE INSULIN INJECTION* FREESTYLE LANCETS 28 GAUGE USE DIRECTED 3 TO 4 TIMES * BACLOFEN 20 MG TABLET Take 20 mg by mouth three georgie* BLOOD-GLUCOSE METER KIT Freestyle LITE Meter Kit - Dx* OXYCODONE-ACETAMINOPHEN 5 MG-* Take 1 tablet by mouth every * SENNOSIDES 8.6 MG-DOCUSATE SO* Take 1 tablet by mouth twice * Patient not taking: Reported on 04/28/2018 VANCOMYCIN 25 MG/ML ORAL LIQU* Take 5 mL by mouth four times* Patient not taking: Reported on 04/28/2018 TADALAFIL 20 MG TABLET Take 1 tablet by mouth once d* Problem List As Of Date 04/28/2018 Noted Resolved Diabetes 1.5, 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 Hyperlipidemia [E78.5] INVALID FOR* Priority: E More... Diabetes type 2, controlled [E11.9] INVALID FOR* Lower back pain [M54.5] INVALID FOR* Priority: D More... Hearing loss [H91.90] INVALID FOR* Dizziness [R42] INVALID FOR* Other musculoskeletal symptoms referable to mixon*INVALID FOR* Hereditary and idiopathic peripheral neuropathy*INVALID FOR* Vitamin B12 deficiency [E53.8] INVALID FOR* PAD (peripheral artery disease) ([facility]) [I73.9] INVALID FOR* Priority: C Small vessel disease ([facility]) [I99.9] INVALID FOR* DM (diabetes mellitus), type 2 with neurologica*INVALID FOR* Priority: E More... Diabetes mellitus with background retinopathy (*INVALID FOR*07/13/2016 Type 1 diabetes mellitus with mild nonprolifera*INVALID FOR*06/08/2016 Other vitreous opacities - Both Eyes [H43.399] INVALID FOR* Lens replaced by other means - Both Eyes [Z96.1]INVALID FOR*07/13/2016 CVA (cerebral vascular accident) ([facility]) [I63.9] INVALID FOR* Type 2 diabetes, controlled, with neuropathy (H*INVALID FOR* Type 2 diabetes mellitus with diabetic neuropat*INVALID FOR*01/29/2016 Type 2 diabetes mellitus with diabetic polyneur*INVALID FOR* After-cataract obscuring vision [H26.499] INVALID FOR* Pseudophakia of both eyes [Z96.1] INVALID FOR* Hyperopia [H52.00] INVALID FOR* Astigmatism, regular [H52.229] INVALID FOR* Vitreous floaters of both eyes [H43.393] INVALID FOR* Meibomian gland dysfunction (MGD) of upper and *INVALID FOR* NSTEMI (non-ST elevated myocardial infarction) *INVALID FOR* Priority: C More... Coronary artery disease involving [place] ricardo*INVALID FOR* Priority: A More... C. difficile colitis [A04.72] INVALID FOR* Priority: I More... More... Nicotine use disorder, F17.2 [F17.200] INVALID FOR* Priority: B More... Hypotension [I95.9] INVALID FOR*04/14/2018 Priority: C More... Cardiac insufficiency (HCC) [I50.9] INVALID FOR*04/14/2018 Priority: C More... Atelectasis [J98.11] INVALID FOR* Priority: B More... Post-operative pain [G89.18] INVALID FOR* Priority: D More... Depression [F32.9] INVALID FOR* Priority: D More... Transition of care performed with sharing of cl*INVALID FOR* Priority: Moderate More... Bilateral pneumothoraces [J93.9] INVALID FOR* Priority: B More... Discharge planning issues [Z02.9] INVALID FOR* More... Prescriptions ordered this encounter Disp Refills Start End ROSUVASTATIN 10 MG TABLET 15 t* 0 04/28/2018 05/28/2018 Route: ORAL Sig: Take 1 tablet by mouth every 48 hours. METOPROLOL TARTRATE 25 MG TABLET 30 t* 0 04/28/2018 05/28/2018 Route: ORAL Sig: Take 0.5 tablets by mouth every 12 hours. OXYCODONE-ACETAMINOPHEN 5 MG-325 MG * 10 t* 0 04/28/2018 05/08/2018 Class: Print RX Route: ORAL Sig: Take 1 tablet by mouth every 4 hours as needed for Pain for up to 10 days. Medications Discontinued During This Encounter pantoprazole DR (PROTONIX) 20 mg tab* 30 t* 0 04/20/2018 04/28/2018 Route: ORAL Sig: Take 1 tablet by mouth DAILY (6 AM). Disc: Reason for discontinue is not on file. rosuvastatin (CRESTOR) 10 mg tablet 15 t* 0 04/19/2018 04/28/2018 Route: ORAL Sig: Take 1 tablet by mouth every 48 hours. Disc: Reason for discontinue is not on file. metoprolol tartrate, short acting, (* 30 t* 0 04/19/2018 04/28/2018 Route: ORAL Sig: Take 0.5 tablets by mouth every 12 hours. Disc: Reason for discontinue is not on file. Encounter Status:Closed by CHADWICK WHEELER CNP on 04/28/18 ECG COMPLETE W Observed: 04/28/2018 Status: F Source: [place] INTERPRETATION 1:30 PM [facility] [place] REPOSITORY NAME : RICK GEORGE PID : [id number] : 1960 Gender : Male Race : ORD : [id number] Procedure Date : Apr 28 2018 13:30:26 Edit Date : May 02 2018 16:47:42 Diagnosis:NORMAL SINUS RHYTHM NONSPECIFIC T WAVE ABNORMALITY PROLONGED QT INTERVAL OR TU FUSION, CONSIDER HYPOKALEMIA ABNORMAL ECG Confirmed by KETTY EUGENE M.D. ([id number]) on 05/02/2018 4:39:24 PM Ventricular Rate : 93 BPM Atrial Rate : 93 BPM P-R Interval : 174 ms QRS Duration : 82 ms Q-T Interval : 370 ms QTC Calculation(Bezet) : 460 ms P [place] : 52 degrees R [place] : -6 degrees T [place] : 106 degrees Test Reason : Location : 314 : [facility] Overread By : KETTY EUGENE M.D. Edited By : KETTY EUGENE M.D. Referred By : SAMMY ZUH Acquired by : ROHAN ONEAL PROGRESS Observed: 04/28/2018 Status: COMPLETED Source: [place] 8:00 AM [facility] [place] REPOSITORY HNO ID: [id number] Author: Jose Juan Stanton Service: (none) Author Type: Nurse Practitioner Type: Progress Notes Filed: 05/02/2018 8:22 AM Note Text: Noted Jose Juan Stanton APRN.CNP PROGRESS Observed: 04/27/2018 Status: COMPLETED Source: [place] 10:14 AM [facility] REPOSITORY HNO ID: [id number] Author: Catracho Mc (Rn) Service: (none) Author Type: Registered Nurse Type: Progress Notes Filed: 05/02/2018 8:22 AM Note Text: PRIMARY CARE COORDINATION FOLLOW-UP NOTE Provider Action/FYI 1. Call to Pt left a vm to confirm his appt 04/28/18 with Chadwick Wheeler CNP Post-op visit with EKG, Labs, CXR, Pt called spk with [employer] Agent he is going to have his drive him to [facility] Appt 04/28/18 2. 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 Pt is now maintaining activity / lifting restrictions post CABG. 3. FBS range 88-129, PP BS range 159-187, 04/27/18 3 AM BS 26, he woke up and ate 3 snack bars. Instructed Pt on [facility] Hypoglycemia Protocol, instructed to drink 4 oz glass juice or regular pop, glucose tabs, avoid if possible treatment with chocolate noting the fat decreases absorption of glucose. Instructed to eat a healthy protein prior to going to bed. Pt notes he had only taken Basaglar 15 units instead of 20 units ordered on 04/26/18 at HS. Pt notes he has never had BS drop that low. 4. Pt denies CP/Sob, edema, or fever, or unusual symptoms 5. Instructed to carry Surgeon's name, phone number and treatment for Hypoglycemia with him. Pt verbalized understanding. 6. Pt will verify at 04/28 Appt with Chadwick Wheeler CNP if he will maintain NA/ fluid restrictriction, and if so ask for a Dietitian Consult for [facility], and will have his sutures evaluated. 9. Pt denies needs or concerns Patient identified by name and date of . YES Spoke to patient [employer] Agent plan for next outreach: F/u on 04/28/18 Appt recommendations Signature Jesusita Hayden RN April 27, 2018 ADTOALEXANDER Observed: 04/27/2018 Status: COMPLETED Source: [place] 12:00 AM [facility] REPOSITORY [facility] RICK GEORGE JR. ([id number]) 1960 M Date Time Provider Department 04/27/18 [facility] (RN) [facility] During your visit today, we recorded the following information about you: Jesusita Hayden RN 05/02/2018 8:22 AM Signed PRIMARY CARE COORDINATION FOLLOW-UP NOTE Provider Action/FYI 1. Call to Pt left a to confirm his appt 04/28/18 with Chadwick Wheeler CNP Post-op visit with EKG, Labs, CXR, Pt called spk with [employer] Agent he is going to have his drive him to [facility] Appt 04/28/18 2. 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 Pt is now maintaining activity / lifting restrictions post CABG. 3. FBS range 88-129, PP BS range 159-187, 04/27/18 3 AM BS 26, he woke up and ate 3 snack bars. Instructed Pt on [facility] Hypoglycemia Protocol, instructed to drink 4 oz glass juice or regular pop, glucose tabs, avoid if possible treatment with chocolate noting the fat decreases absorption of glucose. Instructed to eat a healthy protein prior to going to bed. Pt notes he had only taken Basaglar 15 units instead of 20 units ordered on 04/26/18 at HS. Pt notes he has never had BS drop that low. 4. Pt denies CP/Sob, edema, or fever, or unusual symptoms 5. Instructed to carry Surgeon's name, phone number and treatment for Hypoglycemia with him. Pt verbalized understanding. 6. Pt will verify at 04/28 Appt with Chadwick Wheeler CNP if he will maintain NA/ fluid restrictriction, and if so ask for a Dietitian Consult for [facility], and will have his sutures evaluated. 9. Pt denies needs or concerns Patient identified by name and date of . 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 [facility] [[id number]] Cmt: Update Reason For Visit History Recorded Prescriptions as of 04/27/2018 Sig: NORTRIPTYLINE 50 MG CAPSULE TAKE ONE CAPSULE BY MOUTH ONC* CETIRIZINE 10 MG CAPSULE Take 1 capsule by mouth once * CHOLECALCIFEROL (VITAMIN D3) * Take 1 capsule by mouth once * CETIRIZINE 10 MG TABLET TAKE ONE TABLET BY MOUTH ONCE* ASPIRIN 81 MG CHEWABLE TABLET 2 tablets by ORAL/FEEDING TUB* ACETAMINOPHEN 325 MG TABLET 2 tablets by ORAL/FEEDING TUB* GABAPENTIN 300 MG CAPSULE Take 3 capsules by mouth ever* SENNOSIDES 8.6 MG-DOCUSATE SO* Take 1 tablet by mouth twice * Patient not taking: Reported on 04/28/2018 THERAPEUTIC MULTIVITAMIN TABL* Take 1 tablet by mouth daily * VANCOMYCIN 25 MG/ML ORAL LIQU* Take 5 mL by mouth four times* Patient not taking: Reported on 04/28/2018 X ROSUVASTATIN 10 MG TABLET Take 1 tablet by mouth every * X METOPROLOL TARTRATE 25 MG TAB* Take 0.5 tablets by mouth abdiaziz* X PANTOPRAZOLE 20 MG TABLET,DEL* Take 1 tablet by mouth DAILY * TADALAFIL 20 MG TABLET Take 1 tablet by mouth once d* BLOOD SUGAR DIAGNOSTIC STRIPS Check blood glucose three georgie* BASAGLAR KWIKPEN U-100 INSULI* INJECT 20 UNITS SUBCUTANEOUSL* HUMALOG KWIKPEN (U-100) INSUL* INJECT 12 TO 20 UNITS SUBCUTA* PEN NEEDLE, DIABETIC 31 GAUGE* USE TO GIVE INSULIN INJECTION* FREESTYLE LANCETS 28 GAUGE USE DIRECTED 3 TO 4 TIMES * BACLOFEN 20 MG TABLET Take 20 mg by mouth three georgie* BLOOD-GLUCOSE METER KIT Freestyle LITE Meter Kit - Dx* Problem List As Of Date 04/27/2018 Noted Resolved Diabetes 1.5, 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 Hyperlipidemia [E78.5] INVALID FOR* Priority: E More... Diabetes type 2, controlled [E11.9] INVALID FOR* Lower back pain [M54.5] INVALID FOR* Priority: D More... Hearing loss [H91.90] INVALID FOR* Dizziness [R42] INVALID FOR* Other musculoskeletal symptoms referable to mixon*INVALID FOR* Hereditary and idiopathic peripheral neuropathy*INVALID FOR* Vitamin B12 deficiency [E53.8] INVALID FOR* PAD (peripheral artery disease) ([facility]) [I73.9] INVALID FOR* Priority: C Small vessel disease ([facility]) [I99.9] INVALID FOR* DM (diabetes mellitus), type 2 with neurologica*INVALID FOR* Priority: E More... Diabetes mellitus with background retinopathy (*INVALID FOR*07/13/2016 Type 1 diabetes mellitus with mild nonprolifera*INVALID FOR*06/08/2016 Other vitreous opacities - Both Eyes [H43.399] INVALID FOR* Lens replaced by other means - Both Eyes [Z96.1]INVALID FOR*07/13/2016 CVA (cerebral vascular accident) ([facility]) [I63.9] INVALID FOR* Type 2 diabetes, controlled, with neuropathy (H*INVALID FOR* Type 2 diabetes mellitus with diabetic neuropat*INVALID FOR*01/29/2016 Type 2 diabetes mellitus with diabetic polyneur*INVALID FOR* After-cataract obscuring vision [H26.499] INVALID FOR* Pseudophakia of both eyes [Z96.1] INVALID FOR* Hyperopia [H52.00] INVALID FOR* Astigmatism, regular [H52.229] INVALID FOR* Vitreous floaters of both eyes [H43.393] INVALID FOR* Meibomian gland dysfunction (MGD) of upper and *INVALID FOR* NSTEMI (non-ST elevated myocardial infarction) *INVALID FOR* Priority: C More... Coronary artery disease involving [place] ricardo*INVALID FOR* Priority: A More... C. difficile colitis [A04.72] INVALID FOR* Priority: I More... More... Nicotine use disorder, F17.2 [F17.200] INVALID FOR* Priority: B More... Hypotension [I95.9] INVALID FOR*04/14/2018 Priority: C More... Cardiac insufficiency (HCC) [I50.9] INVALID FOR*04/14/2018 Priority: C More... Atelectasis [J98.11] INVALID FOR* Priority: B More... Post-operative pain [G89.18] INVALID FOR* Priority: D More... Depression [F32.9] INVALID FOR* Priority: D More... Transition of care performed with sharing of cl*INVALID FOR* Priority: Moderate More... Bilateral pneumothoraces [J93.9] INVALID FOR* Priority: B More... Discharge planning issues [Z02.9] INVALID FOR* More... Encounter Status:Closed by CRISTAL DIANE LPN on 05/02/18 PROGRESS Observed: 04/25/2018 Status: COMPLETED Source: [place] 2:07 PM [facility] REPOSITORY HNO ID: [id number] Author: Jose Juan Stanton Service: (none) Author Type: Nurse Practitioner Type: Progress Notes Filed: 04/26/2018 2:34 PM Note Text: Noted Jose Juan Stanton APRN.CNP PROGRESS Observed: 04/25/2018 Status: COMPLETED Source: [place] 8:55 AM [facility] REPOSITORY HNO ID: [id number] Author: Catracho Mc (Rn) Service: (none) Author Type: Registered Nurse Type: Progress Notes Filed: 04/26/2018 2:34 PM Note Text: PRIMARY CARE COORDINATION FOLLOW-UP NOTE Provider Action/FYI 1. Tct [facility] to expedite an Appt this week for Chest tube suture site eval, removal, wound eval post-op 2. Spk with Saida Pryor Patternmaker Helper who only see's general cardiology issues, noting post-op care or vascular Cardiothoracic issues can not be seen at the office. 3. Message to Jerry javier to verify if office can accommodate Pt's needs, spk with scheduling, call back from Dr. Blair office spk with Andres Kendrick RN who spk with Dr. Reagan noting he would have to return to Cardiology/ Cardiovascular for evaluation 4. Call to Dr. Zhu office spk with Aubrie to schedule appt this week for wound care CT suture removal and wound evaluation, post-op Pneumothorax. Pt is scheduled 04/28/[address] Zhu/Isaak Wheeler COMPUTER FORENSICS EXAMINER at 12:45 [address] [address] [address] floor desk [address]14 for X-rays, EKG, labs then Appt on 4th floor with Chadwick Wheeler COMPUTER FORENSICS EXAMINER ( Aubrie noted Pt was offered appt with Surgeon at D/C, declined wanted a local appt ) [employer] Agent noted multiple calls to local providers who recommended f/u with Surgeon only) 5. Call to Pt left a vm notified of Appt 04/28/18 with Chadwick Wheeler NP ( [facility]) instructions given. Patient identified by name and date of . YES Spoke to Eulalia He at Dr. Escamilla office [phone], Dr. Jean Licea, Dr. Zhu [phone] Signature Jesusita Hayden RN April 25, 2018 PROGRESS Observed: 04/25/2018 Status: COMPLETED Source: [place] 7:55 AM [facility] REPOSITORY HNO ID: [id number] Author: Jose Juan Alonzo (Insurance Agent) Shannon Service: (none) Author Type: Nurse Practitioner Type: Progress Notes Filed: 04/25/2018 8:23 AM Note Text: HPI/CC: Rick George Jr. is a 58 year old male who presents for Hospital F/U. Admission date 04/01/2018-04/19/2018. Presented to [facility] for fatigue and diarrhea, CP, developed difficulty breathing, pulse ox at 88%, ECG showed no ischemia but troponin's were elevated. Cardiac cath on 04/03/2018 showed multi vessel disease. Patient was transferred to to [facility] Main s/p NSTEMI for evaluation for CABG. CABG X 3 MACK-LAD, SVG-OM, SVG- left PDA completed on 04/12/2018. During his hospitalization he was also found to have C-diff and Post op pneumothorax - resolving. He was treated with Vanco but unable to finish course d/t insurance coverage. Continues to have loose stools. 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 Reports pain and taking percocet every 4 hours, chills. Continues to experience SOB at times with non-productive cough. Experiencing UE muscle twitching. Denies fevers, chills, drainage at insicion sites, change in appetite, dizziness, lightheadedness, weakness, palpitations, edema Not using IS or support stockings. Does have support pillow. Trying to decrease salt intake. Tolerating PO. Blood glucose levels normal. Jesusita ALCARAZ healthcare interpreter participated in encounter. ROS as above, otherwise non-contributory. Reviewed PMHx, PSHx, social Hx, medications and allergies. PHYSICAL EXAMINATION: BP 112/66 Pulse 88 Resp 16 Wt 88.5 kg (195 lb) BMI 27.98 kg/m? General appearance: Well appearing, alert, in no acute distress, well-hydrated, well nourished., Obese Skin: Skin color, texture, turgor normal, no suspicious rashes or lesions, mid sternal incision well approximated, no drainage, surrounding skin intact, no erythema. 2 epigastric/mid sternal sites sutures intact, appear to be healing well, No s/s of infection. Left incision site with sutures present, scabbed, erythema surrounding, no drainage, non-tender. Right LE harvest incisions well approximated, no drainage, surrounding skin intact, no s/s of infection. Lungs: Lungs clear but diminished to auscultation. No wheezing, rhonchi, rales Heart: RRR without murmur, gallop, or rubs. No ectopy Abdomen: Normal abdominal exam, Abdomen soft, non-tender. Bowel sounds normal. No masses, organomegaly Extremities: No deformities, skin discoloration, clubbing or cyanosis. Bilateral LE edema R>L. ASSESSMENT/PLAN: 1. 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 - continue current medicaitons 2. C. difficile diarrhea - ICD9: 008.45, ICD10: A04.72 - C. DIFFICILE PCR- continues to have loose stools - f/u as scheduled with PCP. Jose Juan Stanton APRN.TRACK LABORER PROGRESS Observed: 04/24/2018 Status: COMPLETED Source: [place] 4:09 PM [facility] REPOSITORY HNO ID: [id number] Author: Catracho Mc (Rn) Service: (none) Author Type: Registered Nurse Type: Progress Notes Filed: 04/26/2018 2:34 PM Note Text: PRIMARY CARE COORDINATION IN OFFICE VISIT WITH PCP Patient has been identified by name and date of . 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 - continue current medicaitons ? 2. C. difficile diarrhea - ICD9: 008.45, ICD10: A04.72 - C. DIFFICILE PCR- continues to have loose stools ? - f/u as scheduled with PCP. PCC Plan of Care: 04/24/[address] Escamilla [facility] Cardiology, Vascular, Surgeon's office for Appt this week, CT site suture evaluation/ removal Next Office Visit: 05/10/2018 Plan For Next Call: CHF /PA Education, Monitor wt, Sob, unusual symptoms BS Testing Wound eval/ suture removal appt scheduled 04/28/18 with Chadwick Wheeler NP [facility] Sodium [facility], 2 liter fluid restriction C-Diff results Jesusita Hayden RN April 24, 2018 CNOV Observed: 04/24/2018 Status: COMPLETED Source: [place] 2:40 PM [facility] REPOSITORY Office Visit (FAMPWS) RICK GEORGE JR. ([id number]) 1960 M Date Time Provider Department 04/24/18 2:40 PM JOSE JUAN STANTON (AD) ROJAS During your visit today, we recorded the following information about you: Pulse Respiration Blood pressure Weight 88/minute 16/minute 112/66 88.5 kg Jose Juan Stanton APRN.CNP 04/25/2018 8:23 AM Signed HPI/CC: Rick George Jr. is a 58 year old male who presents for Hospital F/U. Admission date 04/01/2018-04/19/2018. Presented to [facility] for fatigue and diarrhea, CP, developed difficulty breathing, pulse ox at 88%, ECG showed no ischemia but troponin's were elevated. Cardiac cath on 04/03/2018 showed multi vessel disease. Patient was transferred to to [facility] Main s/p NSTEMI for evaluation for CABG. CABG X 3 MACK-LAD, SVG-OM, SVG- left PDA completed on 04/12/2018. During his hospitalization he was also found to have C-diff and Post op pneumothorax - resolving. He was treated with Vanco but unable to finish course d/t insurance coverage. Continues to have loose stools. 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 Reports pain and taking percocet every 4 hours, chills. Continues to experience SOB at times with non-productive cough. Experiencing UE muscle twitching. Denies fevers, chills, drainage at insicion sites, change in appetite, dizziness, lightheadedness, weakness, palpitations, edema Not using IS or support stockings. Does have support pillow. Trying to decrease salt intake. Tolerating PO. Blood glucose levels normal. Jesusita ALCARAZ healthcare interpreter participated in encounter. ROS as above, otherwise non-contributory. Reviewed PMHx, PSHx, social Hx, medications and allergies. PHYSICAL EXAMINATION: BP 112/66 Pulse 88 Resp 16 Wt 88.5 kg (195 lb) BMI 27.98 kg/m? General appearance: Well appearing, alert, in no acute distress, well-hydrated, well nourished., Obese Skin: Skin color, texture, turgor normal, no suspicious rashes or lesions, mid sternal incision well approximated, no drainage, surrounding skin intact, no erythema. 2 epigastric/mid sternal sites sutures intact, appear to be healing well, No s/s of infection. Left incision site with sutures present, scabbed, erythema surrounding, no drainage, non-tender. Right LE harvest incisions well approximated, no drainage, surrounding skin intact, no s/s of infection. Lungs: Lungs clear but diminished to auscultation. No wheezing, rhonchi, rales Heart: RRR without murmur, gallop, or rubs. No ectopy Abdomen: Normal abdominal exam, Abdomen soft, non-tender. Bowel sounds normal. No masses, organomegaly Extremities: No deformities, skin discoloration, clubbing or cyanosis. Bilateral LE edema R>L. ASSESSMENT/PLAN: 1. 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 - continue current medicaitons 2. C. difficile diarrhea - ICD9: 008.45, ICD10: A04.72 - C. DIFFICILE PCR- continues to have loose stools - f/u as scheduled with PCP. Jose Juan Stanton APRN.TRACK LABORER Referring Provider: SELF [[id number]] Allergies As of Date: 04/24/2018 Noted Allergy Reaction LIPITOR (ATORVASTATIN CALCIUM) 01/07/2015 15 - Contraindication- Medical Olsen* Comments: Elevated LFTs and elevated CK level METFORMIN 03/01/2013 6 - Diarrhea Date Reviewed: 04/24/2018 Reviewed by: Lee Sethi LPN - Fully Assessed Reason for Visit: Hospital F/U [57] Cmt: [facility] transferred to [facility] Main; triple bypass Primary Visit Diagnosis:Status post three vessel coronary artery bypass [Z95.1] Other Visit Diagnosis:C. difficile diarrhea [A04.72] Order(s):C. DIFFICILE PCR [SQCDPCR] Order #: [id number] Prescriptions as of 04/24/2018 Sig: CETIRIZINE 10 MG TABLET TAKE ONE TABLET BY MOUTH ONCE* ASPIRIN 81 MG CHEWABLE TABLET 2 tablets by ORAL/FEEDING TUB* ACETAMINOPHEN 325 MG TABLET 2 tablets by ORAL/FEEDING TUB* OXYCODONE 5 MG TABLET 1 tablet by ORAL/FEEDING TUBE* GABAPENTIN 300 MG CAPSULE Take 3 capsules by mouth ever* ROSUVASTATIN 10 MG TABLET Take 1 tablet by mouth every * METOPROLOL TARTRATE 25 MG TAB* Take 0.5 tablets by mouth abdiaziz* THERAPEUTIC MULTIVITAMIN TABL* Take 1 tablet by mouth daily * PANTOPRAZOLE 20 MG TABLET,DEL* Take 1 tablet by mouth DAILY * VANCOMYCIN 25 MG/ML ORAL LIQU* Take 5 mL by mouth four times* TADALAFIL 20 MG TABLET Take 1 tablet by mouth once d* BLOOD SUGAR DIAGNOSTIC STRIPS Check blood glucose three georgie* BASAGLAR KWIKPEN U-100 INSULI* INJECT 20 UNITS SUBCUTANEOUSL* X CHOLECALCIFEROL (VITAMIN D3) * TAKE ONE CAPSULE BY MOUTH ONC* HUMALOG KWIKPEN (U-100) INSUL* INJECT 12 TO 20 UNITS SUBCUTA* PEN NEEDLE, DIABETIC 31 GAUGE* USE TO GIVE INSULIN INJECTION* FREESTYLE LANCETS 28 GAUGE USE DIRECTED 3 TO 4 TIMES * NORTRIPTYLINE 50 MG CAPSULE TAKE ONE CAPSULE BY MOUTH ONC* BACLOFEN 20 MG TABLET Take 20 mg by mouth three georgie* BLOOD-GLUCOSE METER KIT Freestyle LITE Meter Kit - Dx* SENNOSIDES 8.6 MG-DOCUSATE SO* Take 1 tablet by mouth twice * Problem List As Of Date 04/24/2018 Noted Resolved Diabetes 1.5, 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 Hyperlipidemia [E78.5] INVALID FOR* Priority: E More... Diabetes type 2, controlled [E11.9] INVALID FOR* Lower back pain [M54.5] INVALID FOR* Priority: D More... Hearing loss [H91.90] INVALID FOR* Dizziness [R42] INVALID FOR* Other musculoskeletal symptoms referable to mixon*INVALID FOR* Hereditary and idiopathic peripheral neuropathy*INVALID FOR* Vitamin B12 deficiency [E53.8] INVALID FOR* PAD (peripheral artery disease) ([facility]) [I73.9] INVALID FOR* Priority: C Small vessel disease ([facility]) [I99.9] INVALID FOR* DM (diabetes mellitus), type 2 with neurologica*INVALID FOR* Priority: E More... Diabetes mellitus with background retinopathy (*INVALID FOR*07/13/2016 Type 1 diabetes mellitus with mild nonprolifera*INVALID FOR*06/08/2016 Other vitreous opacities - Both Eyes [H43.399] INVALID FOR* Lens replaced by other means - Both Eyes [Z96.1]INVALID FOR*07/13/2016 CVA (cerebral vascular accident) ([facility]) [I63.9] INVALID FOR* Type 2 diabetes, controlled, with neuropathy (H*INVALID FOR* Type 2 diabetes mellitus with diabetic neuropat*INVALID FOR*01/29/2016 Type 2 diabetes mellitus with diabetic polyneur*INVALID FOR* After-cataract obscuring vision [H26.499] INVALID FOR* Pseudophakia of both eyes [Z96.1] INVALID FOR* Hyperopia [H52.00] INVALID FOR* Astigmatism, regular [H52.229] INVALID FOR* Vitreous floaters of both eyes [H43.393] INVALID FOR* Meibomian gland dysfunction (MGD) of upper and *INVALID FOR* NSTEMI (non-ST elevated myocardial infarction) *INVALID FOR* Priority: C More... Coronary artery disease involving [place] ricardo*INVALID FOR* Priority: A More... C. difficile colitis [A04.72] INVALID FOR* Priority: I More... More... Nicotine use disorder, F17.2 [F17.200] INVALID FOR* Priority: B More... Hypotension [I95.9] INVALID FOR*04/14/2018 Priority: C More... Cardiac insufficiency (HCC) [I50.9] INVALID FOR*04/14/2018 Priority: C More... Atelectasis [J98.11] INVALID FOR* Priority: B More... Post-operative pain [G89.18] INVALID FOR* Priority: D More... Depression [F32.9] INVALID FOR* Priority: D More... Transition of care performed with sharing of cl*INVALID FOR* Priority: Moderate More... Bilateral pneumothoraces [J93.9] INVALID FOR* Priority: B More... Discharge planning issues [Z02.9] INVALID FOR* More... Encounter Status:Closed by JOSE JUAN STANTON CNP on 04/25/18 CNCO Observed: 04/24/2018 Status: COMPLETED Source: [place] 12:00 AM [facility] REPOSITORY Letter Text Sammy Zhu MD Thoracic and Cardiovascular Surgery [address] [place] [address] Toll Free: [phone] ext. [phone] Email: April 24, 2018 Avery Escalante DO [facility] [address] Fax No. [phone] RE: Rick George Jr. Dear Dr. Escalante, I am pleased to provide this preliminary report on your patient, Mr. Rick George Jr., who recently underwent surgery with me at the [facility] [place]. I am attaching an draft copy of my operative report for your immediate review. I would anticipate an uneventful post-operative course. I certainly appreciate the opportunity to participate in the care of your patient. I will keep you informed of his progress and will be sending you copies of his finalized operative report and discharge summary when they become available. I do believe we can anticipate an excellent penitentiary benefit for Mr. George. Thank you again for sending Mr. George to me. Please do not hesitate to contact me at my office or on my personal cell phone [phone] if I may be of any further assistance with his or any patient's care. Warmest Regards, Sammy Zuh MD CNPTOUTREA Observed: 04/24/2018 Status: COMPLETED Source: [place] 12:00 [facility] REPOSITORY Patient Outreach (FAMPWS) RICK GEORGE JR. ([id number]) 1960 M Date Time Provider Department 04/24/18 [facility] ([facility]) FAMPWS During your visit today, we recorded the following information about you: Jesusita Hayden RN 04/26/2018 2:34 PM Signed PRIMARY CARE COORDINATION IN OFFICE VISIT WITH PCP Patient has been identified by name and date of . 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 - continue current medicaitons ? 2. C. difficile diarrhea - ICD9: 008.45, ICD10: A04.72 - C. DIFFICILE PCR- continues to have loose stools ? - f/u as scheduled with PCP. PCC Plan of Care: 04/24/[address] Escamilla [facility] Cardiology, Vascular, Surgeon's office for Appt this week, CT site suture evaluation/ removal Next Office Visit: 05/10/2018 Plan For Next Call: CHF /PA Education, Monitor wt, Sob, unusual symptoms BS Testing Wound eval/ suture removal appt scheduled 04/28/18 with Chadwick Wheeler NP [facility] Sodium Education, 2 liter fluid restriction C-Diff results Jesusita Hayden RN April 24, 2018 Jesusita Hayden RN 04/26/2018 2:34 PM Signed PRIMARY CARE COORDINATION FOLLOW-UP NOTE Provider Action/FYI 1. Tct Dr. Escamilla Cardiology [facility] to expedite an Appt this week for Chest tube suture site eval, removal, wound eval post-op 2. Spk with Saida Pryor Patternmaker Helper who only see's general cardiology issues, noting post-op care or vascular Cardiothoracic issues can not be seen at the office. 3. Message to Jerry Fuentes vascular to verify if office can accommodate Pt's needs, spk with scheduling, call back from Dr. Blair office spk with Andres Kendrick RN who spk with Dr. Reagan noting he would have to return to Cardiology/ Cardiovascular for evaluation 4. Call to Dr. Zhu office spk with Aubrie to schedule appt this week for wound care CT suture removal and wound evaluation, post-op Pneumothorax. Pt is scheduled 04/28/[address] Zhu/Isaak Wheeler COMPUTER FORENSICS EXAMINER at 12:45 [address] [facility] [address] [address] floor desk J14 for X-rays, EKG, labs then Appt on 4th floor with Chadwick Wheeler COMPUTER FORENSICS EXAMINER ( Aubrie noted Pt was offered appt with Surgeon at D/C, declined wanted a local appt ) [employer] Agent noted multiple calls to local providers who recommended f/u with Surgeon only) 5. Call to Pt left a notified of Appt 04/28/18 with Chadwick Weheler NP ( [facility]) instructions given. Patient identified by name and date of . YES Spoke to Eulalia He at Dr. Escamilla office [phone], Dr. Jean Licea, Dr. 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 [7284] Cmt: [facility] D/C 04/19/18, Dx: NSTEMI, CABG x3 Reason For Visit History Recorded Prescriptions as of 04/24/2018 Sig: CETIRIZINE 10 MG CAPSULE Take 1 capsule by mouth once * CHOLECALCIFEROL (VITAMIN D3) * Take 1 capsule by mouth once * CETIRIZINE 10 MG TABLET TAKE ONE TABLET BY MOUTH ONCE* ASPIRIN 81 MG CHEWABLE TABLET 2 tablets by ORAL/FEEDING TUB* ACETAMINOPHEN 325 MG TABLET 2 tablets by ORAL/FEEDING TUB* OXYCODONE 5 MG TABLET 1 tablet by ORAL/FEEDING TUBE* GABAPENTIN 300 MG CAPSULE Take 3 capsules by mouth ever* ROSUVASTATIN 10 MG TABLET Take 1 tablet by mouth every * METOPROLOL TARTRATE 25 MG TAB* Take 0.5 tablets by mouth abdiaziz* SENNOSIDES 8.6 MG-DOCUSATE SO* Take 1 tablet by mouth twice * THERAPEUTIC MULTIVITAMIN TABL* Take 1 tablet by mouth daily * PANTOPRAZOLE 20 MG TABLET,DEL* Take 1 tablet by mouth DAILY * VANCOMYCIN 25 MG/ML ORAL LIQU* Take 5 mL by mouth four times* TADALAFIL 20 MG TABLET Take 1 tablet by mouth once d* BLOOD SUGAR DIAGNOSTIC STRIPS Check blood glucose three georgie* BASAGLAR KWIKPEN U-100 INSULI* INJECT 20 UNITS SUBCUTANEOUSL* HUMALOG KWIKPEN (U-100) INSUL* INJECT 12 TO 20 UNITS SUBCUTA* PEN NEEDLE, DIABETIC 31 GAUGE* USE TO GIVE INSULIN INJECTION* FREESTYLE LANCETS 28 GAUGE USE DIRECTED 3 TO 4 TIMES * NORTRIPTYLINE 50 MG CAPSULE TAKE ONE CAPSULE BY MOUTH ONC* BACLOFEN 20 MG TABLET Take 20 mg by mouth three georgie* BLOOD-GLUCOSE METER KIT Freestyle LITE Meter Kit - Dx* Problem List As Of Date 04/24/2018 Noted Resolved Diabetes 1.5, 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 Hyperlipidemia [E78.5] INVALID FOR* Priority: E More... Diabetes type 2, controlled [E11.9] INVALID FOR* Lower back pain [M54.5] INVALID FOR* Priority: D More... Hearing loss [H91.90] INVALID FOR* Dizziness [R42] INVALID FOR* Other musculoskeletal symptoms referable to mixon*INVALID FOR* Hereditary and idiopathic peripheral neuropathy*INVALID FOR* Vitamin B12 deficiency [E53.8] INVALID FOR* PAD (peripheral artery disease) ([facility]) [I73.9] INVALID FOR* Priority: C Small vessel disease ([facility]) [I99.9] INVALID FOR* DM (diabetes mellitus), type 2 with neurologica*INVALID FOR* Priority: E More... Diabetes mellitus with background retinopathy (*INVALID FOR*07/13/2016 Type 1 diabetes mellitus with mild nonprolifera*INVALID FOR*06/08/2016 Other vitreous opacities - Both Eyes [H43.399] INVALID FOR* Lens replaced by other means - Both Eyes [Z96.1]INVALID FOR*07/13/2016 CVA (cerebral vascular accident) ([facility]) [I63.9] INVALID FOR* Type 2 diabetes, controlled, with neuropathy (H*INVALID FOR* Type 2 diabetes mellitus with diabetic neuropat*INVALID FOR*01/29/2016 Type 2 diabetes mellitus with diabetic polyneur*INVALID FOR* After-cataract obscuring vision [H26.499] INVALID FOR* Pseudophakia of both eyes [Z96.1] INVALID FOR* Hyperopia [H52.00] INVALID FOR* Astigmatism, regular [H52.229] INVALID FOR* Vitreous floaters of both eyes [H43.393] INVALID FOR* Meibomian gland dysfunction (MGD) of upper and *INVALID FOR* NSTEMI (non-ST elevated myocardial infarction) *INVALID FOR* Priority: C More... Coronary artery disease involving [place] ricardo*INVALID FOR* Priority: A More... C. difficile colitis [A04.72] INVALID FOR* Priority: I More... More... Nicotine use disorder, F17.2 [F17.200] INVALID FOR* Priority: B More... Hypotension [I95.9] INVALID FOR*04/14/2018 Priority: C More... Cardiac insufficiency (HCC) [I50.9] INVALID FOR*04/14/2018 Priority: C More... Atelectasis [J98.11] INVALID FOR* Priority: B More... Post-operative pain [G89.18] INVALID FOR* Priority: D More... Depression [F32.9] INVALID FOR* Priority: D More... Transition of care performed with sharing of cl*INVALID FOR* Priority: Moderate More... Bilateral pneumothoraces [J93.9] INVALID FOR* Priority: B More... Discharge planning issues [Z02.9] INVALID FOR* More... Encounter Status:Closed by JESUSITA HAYDEN on 04/26/18 PROGRESS Observed: 04/21/2018 Status: COMPLETED Source: [place] 4:40 PM [facility] REPOSITORY HNO ID: [id number] Author: Avery Escalante Service: (none) Author Type: Physician Type: Progress Notes Filed: 04/26/2018 11:06 AM Note Text: Noted, to Jose Juan as FYI Avery Escalante DO PROGRESS Observed: 04/20/2018 Status: COMPLETED Source: [place] 12:17 PM [facility] REPOSITORY HNO ID: [id number] Author: Ada Ramirez Pharmd Service: (none) Author Type: Pharmacist Type: Progress Notes Filed: 04/26/2018 11:06 AM Note Text: TRANSITION CARE MANAGEMENT (TCM) INITIAL CONTACT Provider Action/FYI: ? The patient was not able to get the Vancomycin oral solution after discharge because the pharmacy did not carry it and because his insurance did not cover it. He received 16 days of therapy as inpatient from 04/04 until 04/19/18, he was supposed continue for 2 more days as outpatient but was not able to. Patient has soft stools, but no blood or mucous. Initial contact with patient post discharge, spoke to patient. Patient identified by name and . Summary: -Pt discharged from [facility] on 04/19/18. -Follow up appointment on 04/24/18 with TRACK LABORER. -Medication review done Yes. -Admitted for CABG Patient was contacted by telephone, identified for pharmacist care from discharge call list, and gave consent to manage medications related to transitional care management pursuant to the consult agreement with the [facility]. Patient Concerns: Patient still has some pain, taking pain medications around the clock. The main concern was the Vancomycin oral solution : The patient was not able to get it at the pharmacy because they do not carry it and because his insurance did not cover it. Patient has soft stools, but no blood or mucous. History of Present Illness: The following content has been copied and pasted from patient's discharge summary. Reason for Hospitalization: 58-year-old gentleman, who presented with ?chest pain, NSTEMI. ?Cardiac catheterization showed severe coronary artery disease. Operations during Hospitalization: CABG x3 MACK-lad, SVG-OM, SVG-left PDA Hospital Course Complicated by: - Post op pneumothorax - resolving - C. diff colitis PAST MEDICAL HISTORY Diagnosis Date - Cataract b/l, eye exam 05/29/13 - CTS (carpal tunnel syndrome) 10/2013 b/l, chronic, Dr. 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 Mazin Hinojosa Neuro, likely from DM and Vitamin B12 defic - Stroke ([facility]) 10/01/13 - Ulnar neuropathy 10/2013 b/l, chronic, Dr. Mazin Hinojosa EMG - Vitamin D deficiency 11/2013 Social History Substance Use Topics - Smoking status: Never Smoker - Smokeless tobacco: Former User Types: Chew - Alcohol use 12.0 oz/week 8 Cans of Beer (12oz) per week Comment: 1-2 per day Immunization History Administered Date(s) Administered Influenza Seasonal Inj Quadrivalent Age 3+ 09/01/2016 07/27/2017 Pneumovax 07/27/2017 Tdap (Age 7+) 04/30/2013 Tetanus Diphtheria Booster (Age >7) Pres Free 02/17/2018 Last 3 Encounter BP Readings: Date: BP: 04/03/2018 111/68 01/30/2018 120/80 11/07/2017 107/72 eGFR, (no units) Date Value 02/20/2013 >60 eGFR-All Other Races (.) Date Value 04/19/2018 >60 eGFR- (no units) Date Value 04/19/2018 >60 Estimated Creatinine Clearance: 99.1 mL/min (based on SCr of 0.92 mg/dL). ALLERGIES Allergen Reactions - Lipitor [Atorvastat* Contraindication-Medical Surgical Elevated LFTs and elevated CK level - Metformin Diarrhea Preferred pharmacy: e- [facility] [address] [place] [id number] - [facility] - [phone] [place] [id number] Medication Reconciliation: Legend: Stopped, New, Changed, Added to list All new meds were e-scripted and filled at [facility] Medication List Medication Directions Comments Action/Plan acetaminophen (TYLENOL) 325 mg tablet 2 tablets by ORAL/FEEDING TUBE route every 4 hours as needed. Discontinued: 04/19/2018 12:32 PM aspirin 81 mg chewable tablet 2 tablets by ORAL/FEEDING TUBE route once daily. Dose decrease from 325 baclofen (LIORESAL) 20 mg tablet None Entered Taking 1 tab tid Updated directions BASAGLAR KWIKPEN U-100 INSULIN 100 unit/mL (3 mL) inpn INJECT 20 UNITS SUBCUTANEOUSLY ONCE DAILY AT BEDTIME 20 units qhs blood sugar diagnostic (FREESTYLE LITE STRIPS) test strip Check blood glucose three times daily. Dx: E11.42, Insulin dependent Checking BS as directed Blood-Glucose Meter (FREESTYLE LITE METER) monitoring kit Freestyle LITE Meter Kit - Dx: Type 2 DM - Controlled E11.9 Discontinued: 04/19/2018 12:32 PM Cetirizine 10 mg cap Take 1 capsule by mouth once daily. qd Cholecalciferol, Vitamin D3, 5,000 unit cap TAKE ONE CAPSULE BY MOUTH ONCE DAILY qd Discontinued: 04/19/2018 12:32 PM Still getting every month? FREESTYLE LANCETS 28 gauge misc USE DIRECTED 3 TO 4 TIMES DAILY TO TEST BLOOD GLUCOSE gabapentin (NEURONTIN) 300 mg capsule Take 3 capsules by mouth every 8 hours for 30 days. Dose increase from 800mg tid HUMALOG KWIKPEN 100 unit/mL inpn INJECT 12 TO 20 UNITS SUBCUTANEOUSLY WITH MEALS DIRECTED insulin needles, DISPOSABLE, (BD INSULIN PEN NEEDLE UF) 31 gauge x 5/16 ndle USE TO GIVE INSULIN INJECTIONS 4 TIMES DAILY Discontinued: 04/19/2018 12:32 PM Discontinued: 04/19/2018 12:32 PM metoprolol tartrate, short acting, (LOPRESSOR) 25 mg tablet Take 0.5 tablets by mouth every 12 hours. Taking as prescribed without any issues nortriptyline (PAMELOR) 50 mg capsule TAKE ONE CAPSULE BY MOUTH ONCE DAILY AT BEDTIME Taking as prescribed without any issues oxyCODONE IR (ROXICODONE) 5 mg immediate release tablet 1 tablet by ORAL/FEEDING TUBE route every 6 hours as needed for up to 7 days. (28 tab) Taking around the clock as directed pantoprazole DR (PROTONIX) 20 mg tablet Take 1 tablet by mouth DAILY (6 AM). Taking as prescribed without any issues rosuvastatin (CRESTOR) 10 mg tablet Take 1 tablet by mouth every 48 hours. Taking as prescribed without any issues senna-docusate (SENNA-S) 8.6-50 mg per tablet Take 1 tablet by mouth twice daily. Not taking because of loose stool Tadalafil (CIALIS) 20 mg tab(s) Take 1 tablet by mouth once daily. therapeutic multivitamin (THERA VITAMIN) tablet Take 1 tablet by mouth daily with breakfast. Not taking because was not sent as prescription to the pharmacy Informed him that he can buy OTC Discontinued: 04/19/2018 12:32 PM vancomycin (VANCOCIN) 25 mg/mL liqd Take 5 mL by mouth four times daily. (50ml) The patient was not able to get it at the pharmacy because they do not carry it and because his insurance did not cover it. He received 16 days of therapy as inpatient from 04/04 until 04/19/18, he was supposed continue for 2 more days as outpatient but was not able to. Patient has soft stools, but no blood or mucous. Informed patient to call [facility] main line for triage nurse if he experiences severe diarrhea, or blood or mucous in stool. Routed to [facility] as FYI before next office visit on 04/24 Assessment: ? Source of medication information: Medication list ? Were adherence barriers identified? Yes, Cost, RX for OTC med not sent to pharmacy ? Every medication has an indication: Yes ? Medical problems with no assigned therapy: No ? Drug therapy problems identified: None Care Gaps: CABG related care gap(s) identified: None Vaccinations: Current season Influenza: Yes Appointments for Next 60 Days Date Time Provider Location Dept Phone 04/20/2018 9:00 AM [facility] [phone] 05/08/2018 9:00 AM JERRY RE[facility]AN [facility] [phone] 05/10/2018 12:20 PM AVERY ESCALANTE [facility] [phone] Interventions Made: Medication counseling Time spent on patient: 45-60 minutes Ada Ramirez PharmD April 20, 2018 12:47 PM JAZLYN Observed: 04/20/2018 Status: COMPLETED Source: [place] 12:00 AM [facility] REPOSITORY Patient Outreach (TRUDIPHAVERONICA) RICK GEORGE JR. ([id number]) 1960 M Date Time Provider Department 04/20/18 SHANIKA NATH, ADA CHOUDHURY During your visit today, we recorded the following information about you: Ada Ramirez PharmD 04/26/2018 11:06 AM Signed TRANSITION CARE MANAGEMENT (TCM) INITIAL CONTACT Provider Action/FYI: ? The patient was not able to get the Vancomycin oral solution after discharge because the pharmacy did not carry it and because his insurance did not cover it. He received 16 days of therapy as inpatient from 04/04 until 04/19/18, he was supposed continue for 2 more days as outpatient but was not able to. Patient has soft stools, but no blood or mucous. Initial contact with patient post discharge, spoke to patient. Patient identified by name and . Summary: -Pt discharged from [facility] on 04/19/18. -Follow up appointment on 04/24/18 with AD. -Medication review done Yes. -Admitted for CABG Patient was contacted by telephone, identified for pharmacist care from discharge call list, and gave consent to manage medications related to transitional care management pursuant to the consult agreement with the [facility]. Patient Concerns: Patient still has some pain, taking pain medications around the clock. The main concern was the Vancomycin oral solution : The patient was not able to get it at the pharmacy because they do not carry it and because his insurance did not cover it. Patient has soft stools, but no blood or mucous. History of Present Illness: The following content has been copied and pasted from patient's discharge summary. Reason for Hospitalization: 58-year-old gentleman, who presented with ?chest pain, NSTEMI. ?Cardiac catheterization showed severe coronary artery disease. Operations during Hospitalization: CABG x3 MACK-lad, SVG-OM, SVG-left PDA Hospital Course Complicated by: - Post op pneumothorax - resolving - C. diff colitis PAST MEDICAL HISTORY Diagnosis Date - Cataract b/l, eye exam 05/29/13 - CTS (carpal tunnel syndrome) 10/2013 b/l, chronic, Dr. 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 Mazin Hinojosa Neuro, likely from DM and Vitamin B12 defic - Stroke ([facility]) 10/01/13 - Ulnar neuropathy 10/2013 b/l, chronic, Dr. Mazin Hinojosa EMG - Vitamin D deficiency 11/2013 Social History Substance Use Topics - Smoking status: Never Smoker - Smokeless tobacco: Former User Types: Chew - Alcohol use 12.0 oz/week 8 Cans of Beer (12oz) per week Comment: 1-2 per day Immunization History Administered Date(s) Administered Influenza Seasonal Inj Quadrivalent Age 3+ 09/01/2016 07/27/2017 Pneumovax 07/27/2017 Tdap (Age 7+) 04/30/2013 Tetanus Diphtheria Booster (Age >7) Pres Free 02/17/2018 Last 3 Encounter BP Readings: Date: BP: 04/03/2018 111/68 01/30/2018 120/80 11/07/2017 107/72 eGFR, (no units) Date Value 02/20/2013 >60 eGFR-All Other Races (.) Date Value 04/19/2018 >60 eGFR- (no units) Date Value 04/19/2018 >60 Estimated Creatinine Clearance: 99.1 mL/min (based on SCr of 0.92 mg/dL). ALLERGIES Allergen Reactions - Lipitor [Atorvastat* Contraindication-Medical Surgical Elevated LFTs and elevated CK level - Metformin Diarrhea Preferred pharmacy: [facility] [address] [place] [address] [address] [facility] [phone] [address] [facility] [address] Medication Reconciliation: Legend: Stopped, New, Changed, Added to list All new meds were e-scripted and filled at [facility] [place] Medication List Medication Directions Comments Action/Plan acetaminophen (TYLENOL) 325 mg tablet 2 tablets by ORAL/FEEDING TUBE route every 4 hours as needed. Discontinued: 04/19/2018 12:32 PM aspirin 81 mg chewable tablet 2 tablets by ORAL/FEEDING TUBE route once daily. Dose decrease from 325 baclofen (LIORESAL) 20 mg tablet None Entered Taking 1 tab tid Updated directions BASAGLAR KWIKPEN U-100 INSULIN 100 unit/mL (3 mL) inpn INJECT 20 UNITS SUBCUTANEOUSLY ONCE DAILY AT BEDTIME 20 units qhs blood sugar diagnostic (FREESTYLE LITE STRIPS) test strip Check blood glucose three times daily. Dx: E11.42, Insulin dependent Checking BS as directed Blood-Glucose Meter (FREESTYLE LITE METER) monitoring kit Freestyle LITE Meter Kit - Dx: Type 2 DM - Controlled E11.9 Discontinued: 04/19/2018 12:32 PM Cetirizine 10 mg cap Take 1 capsule by mouth once daily. qd Cholecalciferol, Vitamin D3, 5,000 unit cap TAKE ONE CAPSULE BY MOUTH ONCE DAILY qd Discontinued: 04/19/2018 12:32 PM Still getting every month? FREESTYLE LANCETS 28 gauge misc USE DIRECTED 3 TO 4 TIMES DAILY TO TEST BLOOD GLUCOSE gabapentin (NEURONTIN) 300 mg capsule Take 3 capsules by mouth every 8 hours for 30 days. Dose increase from 800mg tid HUMALOG KWIKPEN 100 unit/mL inpn INJECT 12 TO 20 UNITS SUBCUTANEOUSLY WITH MEALS DIRECTED insulin needles, DISPOSABLE, (BD INSULIN PEN NEEDLE UF) 31 gauge x 5/16 ndle USE TO GIVE INSULIN INJECTIONS 4 TIMES DAILY Discontinued: 04/19/2018 12:32 PM Discontinued: 04/19/2018 12:32 PM metoprolol tartrate, short acting, (LOPRESSOR) 25 mg tablet Take 0.5 tablets by mouth every 12 hours. Taking as prescribed without any issues nortriptyline (PAMELOR) 50 mg capsule TAKE ONE CAPSULE BY MOUTH ONCE DAILY AT BEDTIME Taking as prescribed without any issues oxyCODONE IR (ROXICODONE) 5 mg immediate release tablet 1 tablet by ORAL/FEEDING TUBE route every 6 hours as needed for up to 7 days. (28 tab) Taking around the clock as directed pantoprazole DR (PROTONIX) 20 mg tablet Take 1 tablet by mouth DAILY (6 AM). Taking as prescribed without any issues rosuvastatin (CRESTOR) 10 mg tablet Take 1 tablet by mouth every 48 hours. Taking as prescribed without any issues senna-docusate (SENNA-S) 8.6-50 mg per tablet Take 1 tablet by mouth twice daily. Not taking because of loose stool Tadalafil (CIALIS) 20 mg tab(s) Take 1 tablet by mouth once daily. therapeutic multivitamin (THERA VITAMIN) tablet Take 1 tablet by mouth daily with breakfast. Not taking because was not sent as prescription to the pharmacy Informed him that he can buy OTC Discontinued: 04/19/2018 12:32 PM vancomycin (VANCOCIN) 25 mg/mL liqd Take 5 mL by mouth four times daily. (50ml) The patient was not able to get it at the pharmacy because they do not carry it and because his insurance did not cover it. He received 16 days of therapy as inpatient from 04/04 until 04/19/18, he was supposed continue for 2 more days as outpatient but was not able to. Patient has soft stools, but no blood or mucous. Informed patient to call [facility] main line for triage nurse if he experiences severe diarrhea, or blood or mucous in stool. Routed to [facility] as FYI before next office visit on 04/24 Assessment: ? Source of medication information: Medication list ? Were adherence barriers identified? Yes, Cost, RX for OTC med not sent to pharmacy ? Every medication has an indication: Yes ? Medical problems with no assigned therapy: No ? Drug therapy problems identified: None Care Gaps: CABG related care gap(s) identified: None Vaccinations: Current season Influenza: Yes Appointments for Next 60 Days Date Time Provider Location Dept Phone 04/20/2018 9:[address] [facility] [phone] 05/08/2018 9:[address] [facility] [phone] 05/10/2018 12:[address] [facility] [phone] Interventions Made: Medication counseling Time spent on patient: 45-60 minutes Ada Ramirez, AmandaD April 20, 2018 12:47 PM Avery Escalante DO 04/26/2018 11:06 AM Signed Noted, to Jose Juan as VIRY Escalante DO Allergies As of Date: 04/20/2018 Noted Allergy Reaction LIPITOR (ATORVASTATIN CALCIUM) 01/07/2015 15 - Contraindication- Medical Olsen* Comments: Elevated LFTs and elevated CK level METFORMIN 03/01/2013 6 - Diarrhea Date Reviewed: 04/18/2018 Reviewed by: Huyen (Rn) LIN Sandra - Fully Assessed Reason for Visit: Transition Of Care [4074] Cmt: Hospital discharge 04/19/18 Reason For Visit History Recorded Prescriptions as of 04/20/2018 Sig: ASPIRIN 81 MG CHEWABLE TABLET 2 tablets by ORAL/FEEDING TUB* ACETAMINOPHEN 325 MG TABLET 2 tablets by ORAL/FEEDING TUB* OXYCODONE 5 MG TABLET 1 tablet by ORAL/FEEDING TUBE* GABAPENTIN 300 MG CAPSULE Take 3 capsules by mouth ever* ROSUVASTATIN 10 MG TABLET Take 1 tablet by mouth every * METOPROLOL TARTRATE 25 MG TAB* Take 0.5 tablets by mouth abdiaziz* PANTOPRAZOLE 20 MG TABLET,DEL* Take 1 tablet by mouth DAILY * BLOOD SUGAR DIAGNOSTIC STRIPS Check blood glucose three georgie* BASAGLAR KWIKPEN U-100 INSULI* INJECT 20 UNITS SUBCUTANEOUSL* X CHOLECALCIFEROL (VITAMIN D3) * TAKE ONE CAPSULE BY MOUTH ONC* X CETIRIZINE 10 MG CAPSULE Take 1 capsule by mouth once * NORTRIPTYLINE 50 MG CAPSULE TAKE ONE CAPSULE BY MOUTH ONC* BACLOFEN 20 MG TABLET Take 20 mg by mouth three georgie* SENNOSIDES 8.6 MG-DOCUSATE SO* Take 1 tablet by mouth twice * THERAPEUTIC MULTIVITAMIN TABL* Take 1 tablet by mouth daily * VANCOMYCIN 25 MG/ML ORAL LIQU* Take 5 mL by mouth four times* TADALAFIL 20 MG TABLET Take 1 tablet by mouth once d* HUMALOG KWIKPEN (U-100) INSUL* INJECT 12 TO 20 UNITS SUBCUTA* PEN NEEDLE, DIABETIC 31 GAUGE* USE TO GIVE INSULIN INJECTION* FREESTYLE LANCETS 28 GAUGE USE DIRECTED 3 TO 4 TIMES * BLOOD-GLUCOSE METER KIT Freestyle LITE Meter Kit - Dx* Problem List As Of Date 04/20/2018 Noted Resolved Diabetes 1.5, 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 Hyperlipidemia [E78.5] INVALID FOR* Priority: E More... Diabetes type 2, controlled [E11.9] INVALID FOR* Lower back pain [M54.5] INVALID FOR* Priority: D More... Hearing loss [H91.90] INVALID FOR* Dizziness [R42] INVALID FOR* Other musculoskeletal symptoms referable to mixon*INVALID FOR* Hereditary and idiopathic peripheral neuropathy*INVALID FOR* Vitamin B12 deficiency [E53.8] INVALID FOR* PAD (peripheral artery disease) ([facility]) [I73.9] INVALID FOR* Priority: C Small vessel disease ([facility]) [I99.9] INVALID FOR* DM (diabetes mellitus), type 2 with neurologica*INVALID FOR* Priority: E More... Diabetes mellitus with background retinopathy (*INVALID FOR*07/13/2016 Type 1 diabetes mellitus with mild nonprolifera*INVALID FOR*06/08/2016 Other vitreous opacities - Both Eyes [H43.399] INVALID FOR* Lens replaced by other means - Both Eyes [Z96.1]INVALID FOR*07/13/2016 CVA (cerebral vascular accident) ([facility]) [I63.9] INVALID FOR* Type 2 diabetes, controlled, with neuropathy (H*INVALID FOR* Type 2 diabetes mellitus with diabetic neuropat*INVALID FOR*01/29/2016 Type 2 diabetes mellitus with diabetic polyneur*INVALID FOR* After-cataract obscuring vision [H26.499] INVALID FOR* Pseudophakia of both eyes [Z96.1] INVALID FOR* Hyperopia [H52.00] INVALID FOR* Astigmatism, regular [H52.229] INVALID FOR* Vitreous floaters of both eyes [H43.393] INVALID FOR* Meibomian gland dysfunction (MGD) of upper and *INVALID FOR* NSTEMI (non-ST elevated myocardial infarction) *INVALID FOR* Priority: C More... Coronary artery disease involving [place] ricardo*INVALID FOR* Priority: A More... C. difficile colitis [A04.72] INVALID FOR* Priority: I More... More... Nicotine use disorder, F17.2 [F17.200] INVALID FOR* Priority: B More... Hypotension [I95.9] INVALID FOR*04/14/2018 Priority: C More... Cardiac insufficiency (HCC) [I50.9] INVALID FOR*04/14/2018 Priority: C More... Atelectasis [J98.11] INVALID FOR* Priority: B More... Post-operative pain [G89.18] INVALID FOR* Priority: D More... Depression [F32.9] INVALID FOR* Priority: D More... Transition of care performed with sharing of cl*INVALID FOR* Priority: Moderate More... Bilateral pneumothoraces [J93.9] INVALID FOR* Priority: B More... Discharge planning issues [Z02.9] INVALID FOR* More... Encounter Status:Closed by SHANIKA (PHARMACIST)ADA on 04/26/18 PLAN OF CARE Observed: 04/19/2018 Status: COMPLETED Source: [place] 1:56 PM [facility] REPOSITORY HNO ID: [id number] Author: Kari Palm ([employer]) Service: (none) Author Type: Precision Dyer Type: Plan of Care Filed: 04/19/2018 1:56 PM Note Text: Pharmacy Discharge Medication Service: This patient has elected to receive their discharge prescriptions through the [facility] Bedside Prescription Delivery program. The prescriptions are currently being processed. A follow-up note will be entered once the prescriptions have been filled and delivered to the patient. Please contact me with any questions or updates to the patient's discharge medications. 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 Patient to use [facility] Bedside Delivery - YES 2. If fax, patient would like us to fax prescriptions to Pharmacy of choice a. Pharmacy: b. Location: c. Phone: 3. Insurance card on file - YES 4. Credit card for payment - NO CNDS Observed: 04/19/2018 Status: COMPLETED Source: [place] 12:39 PM [facility] REPOSITORY HNO ID: [id number] Author: Enrike Boudreaux) MD Damien Service: Cardiac Surgery Author Type: Physician Type: Discharge Summaries Filed: 04/19/2018 12:51 PM Note Text: Department of Cardiothoracic Surgery Discharge Summary (Template ID [id number]) Patient Name: Rick George Jr. Patient Admission Date: 04/03/2018 Discharge Date: April 19, 2018 Attending Physician: Sammy Zhu M.D. Primary Service: [facility] Cts Team A Admission Diagnosis: Coronary artery disease, NSTEMI Discharge Diagnosis: Coronary artery disease, NSTEMI [facility] Surgeon: Sammy Zhu M.D. [facility] Cardiothoracic Surgery Hospitalist. Enrike Quezada MD PhD Reason for Hospitalization: 58-year-old gentleman, who presented with chest pain, NSTEMI. Cardiac catheterization showed severe coronary artery disease. Operations during Hospitalization: CABG x3 MACK-lad, SVG-OM, SVG-left PDA. Hospital Course: How was the Reason for Hospitalization Addressed: Yes What were the Active Issues: CAD s/p CABG Surgical Pathology/Microbiology: N/A Hospital Course Complicated by: - Post op pneumothorax - resolving - C. diff colitis Extended Hospital Stay Due to: - Post op pneumothorax - resolving - C. diff colitis Specific Medication Changes: No Pain: Adequate management. Surgical Incisions/Wounds: Wash the incision sites daily with regular soap (not perfumed soap or shower gels) and water. Keep the area clean and dry when you are not showering. Do not use creams, lotions or ointment on the incision sites. Do not soak in a tub, pool or hot tub until your incisions are completely healed. Patient Condition at Discharge: Improved Disposition: Home/Self Care Problem List: Patient Active Hospital Problem List: Coronary artery disease involving [place] coronary artery of [place] heart with unstable angina pectoris ([facility]) (04/04/2018) Transition of care performed with sharing of clinical summary (04/15/2018) Nicotine use disorder, F17.2 (04/12/2018) Atelectasis (04/12/2018) Bilateral pneumothoraces (04/15/2018) PAD (peripheral artery disease) ([facility]) (05/15/2014) NSTEMI (non-ST elevated myocardial infarction) ([facility]) (04/04/2018) Lower back pain (07/18/2013) Post-operative pain (04/12/2018) Hyperlipidemia (04/30/2013) DM (diabetes mellitus), type 2 with neurological complications ([facility]) (10/15/2014) C. difficile colitis (04/06/2018) Discharge planning issues (04/15/2018) Consults: Infectious Disease Procedures Performed and Major Radiology: No Information Provided to the Patient: Patient given copy of After Visit Summary which included activity instructions, diet instructions, wound care instructions, medication instructions and follow up appointment Discharge Medications: Current Discharge Medication List START taking these medications aspirin 162 mg 162 mg by ORAL/FEEDING TUBE route once daily. Qty: 60 tablet Refills: 0 acetaminophen (TYLENOL) 650 mg 650 mg by ORAL/FEEDING TUBE route every 4 hours as needed. Qty: 100 tablet Refills: 0 oxyCODONE IR (ROXICODONE) 5 mg 5 mg by ORAL/FEEDING TUBE route every 6 hours as needed. Earliest Fill Date: 04/19/18 Qty: 28 tablet Refills: 0 Associated Diagnoses:Post-operative pain gabapentin (NEURONTIN) 900 mg Take 900 mg by mouth every 8 hours. Qty: 270 capsule Refills: 0 rosuvastatin (CRESTOR) 10 mg Take 10 mg by mouth every 48 hours. Qty: 15 tablet Refills: 0 metoprolol tartrate (short acting) (LOPRESSOR) 12.5 mg Take 12.5 mg by mouth every 12 hours. Qty: 30 tablet Refills: 0 senna-docusate (SENNA-S) 1 tablet Take 1 tablet by mouth twice daily. Qty: 30 tablet Refills: 0 therapeutic multivitamin (THERA VITAMIN) 1 tablet Take 1 tablet by mouth daily with breakfast. pantoprazole DR (PROTONIX) 20 mg Take 20 mg by mouth DAILY (6 AM). Qty: 30 tablet Refills: 0 vancomycin (VANCOCIN) 125 mg Take 125 mg by mouth four times daily. Qty: 50 mL Refills: 0 CONTINUE these medications which have NOT CHANGED Tadalafil (CIALIS) 20 mg Take 20 mg by mouth once daily. Qty: 36 tablet Refills: 11 Associated Diagnoses:Combined arterial insufficiency and corporo-venous occlusive erectile dysfunction blood sugar diagnostic (FREESTYLE LITE STRIPS) test strip Check blood glucose three times daily. Dx: E11.42, Insulin dependent Qty: 300 Strip Refills: 3 Associated Diagnoses:DM (diabetes mellitus), type 2 with neurological complications (HCC) BASAGLAR KWIKPEN U-100 INSULIN 100 unit/mL (3 mL) inpn INJECT 20 UNITS SUBCUTANEOUSLY ONCE DAILY AT BEDTIME Qty: 15 Pen Refills: 3 Comments: Please consider 90 day supplies to promote better adherence Cholecalciferol, Vitamin D3, 5,000 unit cap TAKE ONE CAPSULE BY MOUTH ONCE DAILY Qty: 30 capsule Refills: 5 Comments: Please consider 90 day supplies to promote better adherence HUMALOG KWIKPEN 100 unit/mL inpn INJECT 12 TO 20 UNITS SUBCUTANEOUSLY WITH MEALS DIRECTED Qty: 3 Pen Refills: 5 Comments: Please consider 90 day supplies to promote better adherence Cetirizine 1 capsule Take 1 capsule by mouth once daily. Qty: 90 capsule Refills: 3 insulin needles, DISPOSABLE, (BD INSULIN PEN NEEDLE UF) 31 gauge x 5/16 ndle USE TO GIVE INSULIN INJECTIONS 4 TIMES DAILY Qty: 400 Each Refills: 3 FREESTYLE LANCETS 28 gauge misc USE DIRECTED 3 TO 4 TIMES DAILY TO TEST BLOOD GLUCOSE Qty: 400 Each Refills: 3 nortriptyline (PAMELOR) 50 mg capsule TAKE ONE CAPSULE BY MOUTH ONCE DAILY AT BEDTIME Qty: 90 capsule Refills: 3 baclofen (LIORESAL) 20 mg tablet Blood-Glucose Meter (FREESTYLE LITE METER) monitoring kit Freestyle LITE Meter Kit - Dx: Type 2 DM - Controlled E11.9 Qty: 1 Each Refills: 0 Associated Diagnoses:DM (diabetes mellitus), type 2 with neurological complications (HCC) STOP taking these medications ammonium lactate (LAC-HYDRIN) 12 % cream Comments: Reason for Stopping: gabapentin (NEURONTIN) 800 mg Comments: Reason for Stopping: Magnesium 250 mg Comments: Reason for Stopping: celecoxib (CeleBREX) 200 mg Comments: Reason for Stopping: ketoconazole (NIZORAL) 2 % cream Comments: Reason for Stopping: lisinopril (ZESTRIL,PRINIVIL) 30 mg Comments: Reason for Stopping: amLODIPine (NORVASC) 5 mg Comments: Reason for Stopping: Urea 1 application Comments: Reason for Stopping: cyanocobalamin 1,000 mcg Comments: Reason for Stopping: Biotin 1 mg Comments: Reason for Stopping: aspirin 325 mg Comments: Reason for Stopping: diflorasone 0.05 % cream Comments: Reason for Stopping: desonide (TRIDESILON) 0.05 % cream Comments: Reason for Stopping: mjqymxsas-[id number]-algal oil 1 capsule Comments: Reason for Stopping: tiZANidine (ZANAFLEX) 4 mg Comments: Reason for Stopping: Blood Pressure Cuff - Home Use Comments: Reason for Stopping: ketoconazole (NIZORAL) 1 application Comments: Reason for Stopping: Ammonium,Pot.and Sodium Lactates 1 Tube Comments: Reason for Stopping: alcohol swabs 1 application Comments: Reason for Stopping: Outpatient Management: * Are there important medication changes and/or outstanding issues that need to be addressed: None * What is the plan for follow up: - Follow up with PCP in 1 week and statement processor in 4 weeks. - Mr. George was offered an appointment to return to [facility] Outpatient department for a post operative visit with the Nurse Practitioner. He declined and prefers to follow up with PCP. Future Appointments: Future Appointments Date Time Provider Department Center 04/20/2018 9:00 AM [id number] NURSE [facility] 05/08/2018 9:00 AM [id number] [place] [facility] 05/10/2018 12:20 PM [id number] [facility] Electronically SIGNED by Licensed Independent Practitioner: Enrike Quezada MD PhD PROGRESS Observed: 04/19/2018 Status: COMPLETED Source: [place] 12:18 PM [facility] REPOSITORY HNO ID: [id number] Author: Enrike Boudreaux) MD Damien Service: Cardiac Surgery Author Type: Physician Type: Progress Notes Filed: 04/19/2018 12:20 PM Note Text: [facility] POSTOP PROGRESS NOTE Day of Surgery:04/12/2018 S/P SURGERY: CABGx3, MACK to LAD , SVG to PD pf CX , SVG to OM INTERVAL EVENTS / PERTINENT ROS: No acute events Rhythm: Sinus Intake/Output Summary (Last 24 hours) at 04/19/18 1219 Last data filed at 04/19/18 1200 Gross per 24 hour Intake 600 ml Output 3000 ml Net -2400 ml EKG: most recent image reviewed TELE: most recent recordings reviewed CXR: most recent image reviewed Echocardiogram: most recent image reviewed PHYSICAL EXAM: BP 113/69 Pulse 88 Temp 36.6 ?C (97.8 ?F) (Oral) Resp 18 Ht 177.8 cm (5' 10) Wt 88.3 kg (194 lb 9.6 oz) SpO2 98% BMI 27.92 kg/m? Neuro: ?AANDO x 3?moves all extremities with no apparent weakness CV: no jugular venous distention Heart Exam: RRR without murmur, gallop, or rubs. ?No ectopy. Resp: diminished breath sounds Abd: soft, nontender, nondistended; BS normal; no masses or organomegaly noted. Skin: Skin color, texture, turgor normal, no suspicious rashes or lesions Ext: Trace?edema Surgical incisions: clean, dry and intact Chest tube: No Pacer wires: No HISTORY, ASSESSMENT AND PLAN: Problem Transition of Care Performed With Sharing of Clinical Summary Indication for Surgery: Coronary Artery Disease LVEF: 57% RVF: Normal CARDS: Li Mcguire EKG: Sinus rhythm Important/Relevant PMH/PSH: CAD, NSTEMI, HTN, HLD, PAD/PVD, CVA (unknown residual) DM2. Preoperative Hospital Course (narrative):Pt presented to [facility] on 04/01/18 w a 7d hx of increasing cough and SOB, CP wo radiation, and diarrhea. Transferred from OSH w/ NSTEMI. C. Diff positive at OSH, continue PO vanco. Procedure/Surgeries: 04/12/2018 CABGx3, MACK to LAD , SVG to PD pf CX , SVG to OM Airway Difficulty: Grade I - No special instrumentation OR Course: Uncomplicated Pacing wires: No,pulled on 04/18 Postoperative Course/General Impression: (narrative or log of major events with date of onset): Arrived to unit intubated and sedated. Cardiac insufficiency coming off CPB requiring epinephrine infusion, now off. Hypertensive on arrival to unit, NTG infusion started to maintain MAPs 65-75. Currently on levophed, wean as able. IVF resuscitation as needed. Pain AND glucose control. Extubated dos. Weaned from pressors pod#1. Issues to communicate at signout: -CABG x3: Continue ASA, Statin and BB. - DM: endocrine following. - C-diff: ID following, continue oral vanco. - Small biapical pneumothoraces : left greater than right. No change after clamping study - Lives in [place], [place] with spouse. No anticipated discharge date. Discharge Planning: Anticipated Discharge Date: Unknown Unknown- Still with Left PL. Care Management Discharge Needs: Needs Prior to Discharge: To Be Determined Coronary Artery Disease Involving [place] Coronary Artery of [place] Heart With Unstable Angina Pectoris (Hcc) History: Recent NSTEMI Assessment: 04/12/2018 s/p CABGx3, MACK to LAD , SVG to PD pf CX , SVG to OM Plan: CAD Core Measures: Aspirin: Yes Beta blockers: Yes Statins: Yes Atelectasis History: Post op atelectasis Assessment: Repeated CXR shows decreased pneumothorax. On RA Plan: Encourage pep use, OOB to chair, ambulation, encourage cough AND deep breathing. Optimize pain control. DM (Diabetes Mellitus), Type 2 With Neurological Complications (Hcc) History: HgA1C 5.7. Home regimen: humalog insulin Assessment: Current BG range 94-134 Plan: Endo following. RECOMMENDATIONS: ? ?Basal Insulin: Lantus 30?units q pm ? ?Prandial Insulin: Humalog 5?units AC TID ? ?Supplemental Sliding Scale: Humalog Program #2 AC AND HS ? ?Accuchecks: AC/HS ? ?Recommend Heart Healthy Diet and CHO Controlled Diet ? ?Consult CDE regarding: DM Education including none COMPUTER FORENSICS EXAMINER to review MDI C. Difficile Colitis History: C. Diff positive at OSH. Assessment: afebrile, no diarrhea Plan: ID following, continue PO vancomycin. last dose on 04/20 DAILY STEP DOWN CHECKLIST FOR CATHETER RELATED INFECTION PREVENTION CVC, PICC, Josh and/or Permacath present? No Does the patient have a urinary catheter beyond POD 2? No VTE Risk Assessment: High risk VTE Mechanical and/or Pharmacologic Prophylaxis: IPC Device and Subcutaneous Heparin Labs and medications reviewed in [facility] SIGNATURE: Enrike Quezada MD PhD PATIENT NAME: Rick George Jr. DATE: April 19, 2018 TIME: 12:19 PM PAGER/CONTACT #: [phone] XR CHEST 2V FRONTAL/LAT Observed: 04/19/2018 Status: F Source: [place] 10:35 AM [facility] REPOSITORY * * *Final Report* * * DATE OF EXAM: Apr 19 2018 10:35AM JIX [id number] - XR CHEST 2V FRONTAL/LAT / PROCEDURE REASON: Pneumothorax * * * * Physician Interpretation * * * * EXAMINATION: CHEST RADIOGRAPH (2 VIEW FRONTAL and LATERAL) Clinical History: Pneumothorax MQ: XC2_5 Comparison: 04/18/2018 RESULT: Lines, tubes, and devices: Patient is status post median sternotomy. Interval follow-up left-sided chest tube. Lungs and pleura: A minute left apical pneumothorax is present. There are trace bilateral pleural effusions with patchy opacities in the lower lung zones, likely atelectasis. There is mild pulmonary venous congestion. Cardiomediastinal silhouette: Probable prior CABG. The cardiomediastinal silhouette remains enlarged, unchanged. There are atherosclerotic calcifications in the aortic arch. Other: Endplate degenerative changes are present in the thoracic spine. IMPRESSION: Please see body of the report. Animal Technician: KAYE Transcribe Date/Time: Apr 19 2018 12:06P Dictated by : SUNITA SOLORZANO MD This examination was interpreted and the report reviewed and electronically signed by: SUNITA SOLORZANO MD on Apr 19 2018 12:07PM EST [id number] PROGRESS Observed: 04/19/2018 Status: COMPLETED Source: [place] 10:33 AM [facility] REPOSITORY HNO ID: [id number] Author: Deedee Cee Service: (none) Author Type: (none) Type: Progress Notes Filed: 04/19/2018 10:33 AM Note Text: Radiology Service Progress Note PATIENT NAME: Rick George Jr. DATE OF SERVICE: April 19, 2018 TIME: 10:33 AM PATIENT IDENTITY VERIFICATION COMPLETED USING TWO (2) METHODS: Patient confirmed name verbally and ID band matches.. PATIENT GENDER DATA: Male PATIENT RELEVANT IMPLANT DATA REVIEWED: Not Applicable RADIOLOGY DEPARTMENT: General X-ray: Exam(s) Completed: Chest X-Ray PERIPHERAL IV DATA: Not applicable SIGNED BY: Deedee Cee April 19, 2018 10:33 AM THERAPY NT Observed: 04/19/2018 Status: COMPLETED Source: [place] 9:13 AM [facility] REPOSITORY HNO ID: [id number] Author: Fabiola (Pt) MAURICE Walden Service: Physical Therapy Author Type: Physical Therapist Type: Therapy (PT/OT/Speech/Resp) Filed: 04/19/2018 9:54 AM Note Text: Physical Therapy Re-Evaluation SERVICE DATE: 04/19/2018 SERVICE TIME: 912 to 939 ROOM: [place] [id number] Recommended Discharge Disposition: Outpatient Physical Therapy Recommended Discharge Disposition Comments: for left hip pain, referral for cardiac rehab when appropriate Anticipated Discharge Needs: Supervision at Home;Physical Assist at Home Physical Assist at Home for: Transportation;Shopping;Laundry Supervision at Home due to: (recent cardiac surgery) Recommended Discharge Equipment: No equipment needs anticipated PT Recommendations to Nursing: Ambulate without device;In halls Device: (none) PT 6 Clicks Score: 24 ASSESSMENT : Pt is now s/p CABGx3, MACK to LAD , SVG to PD pf CX , SVG to OM performed 04/12 prompting re-evaluation. Pt present near baseline function, demonstrating safety and independence with bed mobility and transfers and requiring supervision for ambulation with no assistive device d/t decreased activity tolerance. Pt with continued c/o left hip pain contributing to antalgic gait pattern on LLE, however, no LOB or instability noted. Requires skilled PT for strengthening, balance and education interventions to augment interventions to improve overall safety, efficiency and independence in performing functional mobility. Recommending d/c home with referral for outpatient physical therapy for left hip and referral for cardiac rehab when appropriate. Patient Disposition at Start of Session: Supine in Bed Patient Disposition at End of Session: Supine in Bed;Call [place] in Reach Tolerated Full Session Physical Therapy Problem List: Pain Patient /Caregiver Goals: Walk;Go Home Goals for Plan of Care: Able to perform HEP with: Independent Transfer supine to/from sit with: Independent Transfer sit to/from stand with: Independent Ambulate with: Independent Distance: >300 feet Ambulate up and down steps with: Independent Number of steps: 12 Progress Toward Goals: Progressing as expected Rehab Potential: Excellent PLAN: Treatment Frequency (times per week): 1 (+1 prn) Current admission Treatment Interventions: Education;Energy Conservation Training;Strengthening;Functional Mobility Training;Balance Training;Pain Management Modalities: Ice Plan of Care developed with: Patient TREATMENT INTERVENTIONS: Therapy Diagnosis: Abnormalities of gait and mobility-other Interventions Provided: Re-evaluation;Therapeutic Activity (14585) $ Reevaluation (72077) Billed Units: 1 unit Therapeutic Activity (31522) Treatment Minutes: 17 1 unit Skilled Intervention(s): Instructed patient in log roll technique. Verbal cues for sequencing to maintain sternal precautions Instructed patient in performing supine<>sit with technique to perform while maintaining sternal precautions Patient educated regarding: -sternal precautions as they pertain functional mobility -safety in performing bed mobility, transfers and ambulation -pursed lip breathing with mobility -s/s of fatigue/decreasing activity tolerance and appropriate response -use of RPE scale activity intensity/tolerance and appropriate scale (2-4/10) for phase I of cardiac rehab -phase I vs. Phase II of cardiac rehab and goals of each. -discharge planning-outpatient PT for hip, cardiac rehab at ~6 wk sergio -importance of regular mobility (EOB/OOB/while in bed); ambulation 4-6x/day; educated on performing shorter walks more frequently vs. Fewer long walks to build endurance Total Timed Code Treatment Minutes: 17 Total Treatment Time (minutes): 27 FUNCTIONAL G CODE: PT 6 Clicks Score: 24 (04/19/18 0913) Mobility: Walking and Moving Around Current Status (G8978): (04/07/18 0810) Mobility: Walking and Moving Around Goal Status (G8979): (04/07/18 0810) Based on clinical assessment and the score on the 6 Clicks Functional Assessment Tool, the G code and corresponding severity modifiers are documented above. 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 Pt was engaged and agreeable to participate in physical therapy. Patient was left in bed with Call light in reach, Bed in low/ locked position, 2 bedrails elevated and Patient appropriate for OOB activity/up in chair. . Please see discipline specific clinical documentation flowsheet for complete details for this therapy evaluation/treatment. SIGNATURE: Fabiola Walden PT PATIENT NAME: Rick George Jr. DATE: April 19, 2018 TIME: 9:46 AM PAGER/CONTACT #: [phone] CONSULT PROG Observed: 04/19/2018 Status: COMPLETED Source: [place] 8:32 AM [facility] REPOSITORY HNO ID: [id number] Author: Radha Singh Service: Endocrinology Author Type: Nurse Practitioner Type: Consult Progress Note Filed: 04/19/2018 6:13 PM Note Text: DIABETES CARE TEAM NOTE SERVICE DATE: 04/19/2018 SERVICE TIME: 8:33 AM Subjective Summary of History from Prior Record: Consult Date: 04/13/18 ? Subjective ? ? HPI: Mr. Rick George Jr. is a 58 year old male with a 213?year history of Diabetes Mellitus Type 2 hyperglycemia?(diagnosed 2004)who was admitted on 04/03/2018 transferred from [facility] w/ NSTEMI. C diff positive at OSH. Now s/p CABG x 3 on 04/12/2018 Past medical history significant for HTN, CAD, CVA, PAD, PVD, and NSTEMI. Patient ?does ?Exercise. 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 Last HbA1c was 5.7%on 04/04/2018. ?He has a family history of diabetes in his mother, father, grandparents from both sides. He is followed by PCP?for his diabetes at [facility]. ? ? DIABETIC COMPLICATIONS: Retinopathy: Unspecified Neuropathy but relate that ?to stroke not DM/CVA in 2013 Cataracts ? Pre-Admission DM Regimen: Preadmission oral agents: None Preadmission insulin regimen: Lantus 20?units ?Q HS Humalog 12-20?units ?AC and Sliding scale ( I check my BG 2 hours after meal intake and use scale if gluocse ?is high). ? Self Monitoring Blood Glucose: Type of Monitor: Freestyle? Frequency of Monitoring: Three times a Day BG Values: 150-160 post meals at times in 200mg/dL Hypoglycemia: No but per primary note at times low 60 mg/dL INTERVAL HPI: Uneventful reading news paper and stated I am going home today. PERTINENT ROS: Constitutional:no c/o Appetite:Intact GI:No nausea, no vomitting, no diarrhea, no constipation Objective PHYSICAL EXAM: BP 132/75 Pulse 96 Temp 36.9 ?C (98.4 ?F) (Oral) Resp 18 Ht 177.8 cm (5' 10) Wt 88.3 kg (194 lb 9.6 oz) SpO2 96% BMI 27.92 kg/m? General Appearance:A+O x 3 and In no apparent distress Affect:Pleasant and cooperative Eyes:Sclerae non-icteric Abdomen:Soft, non-tender Skin/Lipohypertrophy:no cyanosis Edema:none noted Laboratory Results: Glucose (mg/dL) Date Value 04/19/2018 123 Potassium (mmol/L) Date Value 04/19/2018 5.3 Sodium (mmol/L) Date Value 04/19/2018 141 Chloride (mmol/L) Date Value 04/19/2018 100 CO2 (mmol/L) Date Value 04/19/2018 29 Creatinine (mg/dL) Date Value 04/19/2018 0.92 BUN (mg/dL) Date Value 04/19/2018 11 Anion Gap (mmol/L) Date Value 04/19/2018 12 Calcium (mg/dL) Date Value 04/19/2018 9.4 ALT Date Value Ref Range Status 04/19/2018 27 10 - 54 U/L Final AST Date Value Ref Range Status 04/19/2018 26 14 - 40 U/L Final Hemoglobin (g/dL) Date Value 04/19/2018 8.6 Hematocrit (%) Date Value 04/19/2018 27.7 WBC (k/uL) Date Value 04/19/2018 8.78 Platelet Count (k/uL) Date Value 04/19/2018 355 Hemoglobin A1C (%) Date Value 04/04/2018 5.7 LV Ejection Fraction (%) Date Value 04/04/2018 57 Diet: ?Heart Healthy: Cardiac 2 GM SODIUM (<200 MG CHOL / LOW SAT FAT), Carb Control: 3--5 CARBS/MEAL (<200 MG CHOL / LOW SAT FAT) and Fluid Restriction : 1500ml daily? Supplements: Boost ? Other Pertinent Medications: Steroids no ? Diabetes Management in Hospital Hospital ?BG values or ranges: ? Date AM LUNCH DINNER HS 3AM 04/12/2018 141 Lantus 5u 120 214-227 191 222-191 04/13/2018 149-186 RHI gtt 5.4-2.2 163-130 Lantus 30 u ? 136-147 120? ? 04/14/18? ?148(h5) 144?(h5) 125 (h5)Lantus 30u 113? ? ?04/15 94 (h5)? ?130(h5) 202(h9)? Lantus 30 u 205(h4)? ? 04/16 156(h7) 221(h11) 151(h9) Lantus 30 u ?183(H2) 105? 7/? ?101(H7) 174(H7+2)? 122(H7) Lantus 30 u? ?159(H2) ? 04/18 185(H7+2) 168(H7+2) 99(H7) Lantus 30 u 168(H2)? 123? 7/4 151(H7+2) 155(H7+2) 155(H7+2) Lantus 30u ? ? ? Impression/Recommendations:? Patient with uncontrolled Diabetes Mellitus Type 2 hyperglycemia?s/p CABG x 3 on 04/12/2018 whom we have been consulted for glycemic control. BG stable on current MDI insulin regimen no changes at this time. Will follow. Weight 90.7?kg ? RECOMMENDATIONS: if discharge home today ? ??Basal Insulin: Lantus 30?units q pm ? ?Prandial Insulin: Humalog ?units AC TID ? ??Supplemental Sliding Scale: Humalog Program #2 AC AND?HS ? ?Accuchecks: AC/HS ? ?Recommend Heart Healthy Diet and CHO Controlled Diet ? ?Consult CDE regarding: DM Education including none COMPUTER FORENSICS EXAMINER to review MDI ? DM DISCHARGE PLAN: ? ?MDI insulin of Lantus and Humalog. ? Basal Insulin: Lantus 30?units q pm ? ?Prandial Insulin: Humalog ?units AC TID ? ??Supplemental Sliding Scale: Humalog Program #2 AC If Blood Glucose (mg/dL) is <110 Give 0 units 111-150 Give 0 units 151-200 Give 2 unit 201-250 Give 4 units 251-300 Give 6 units 301-350 Give 8 units 351-400 Give 10 units >400 Call physician. ? ?Check blood sugars Three times a Day? ? ?Diet: Heart Healthy Diet and CHO Controlled Diet ? ?Exercise as prescribed by cardiology ? ?Follow up with housekeeping/laundry and supervisor fiber locking as recommended. ? ?Patient will need follow-up ?with his home PCP in 1-2 weeks after discharge. ? ?Diabetes Care Team Hospital Discharge Help Line: [phone] ? SIGNATURE: Radha Singh APRN.TRACK LABORER PATIENT NAME: Rick George Jr. DATE: April 19, 2018 TIME: 8:33 AM PAGER/CONTACT #: [phone] CBC Collected: 04/19/2018 Status: F Source: [place] 4:35 AM [facility] REPOSITORY TYPE CODE TESTS RESULT OUT OF REFERENCE UNITS RANGE LAB WBC 3.70-11.00 k/uL WBC 8.78 LAB RBC 4.20-6.00 m/uL Low RBC 2.82 LAB HGB 13.0-17.0 g/dL Low Hemoglobin 8.6 LAB HCT 39.0-51.0 % Low Hematocrit 27.7 LAB MCV 80.0-100.0 fL MCV 98.2 LAB MCH 26.0-34.0 pG MCH 30.5 LAB MCHC 30.5-36.0 g/dL MCHC 31.0 LAB RDWCV 11.5-15.0 % RDW-CV 13.8 LAB PLTCT 150-400 k/uL Platelet Count 355 LAB MPV 9.0-12.7 fL MPV 9.8 LAB ABSNUC <0.01 k/uL Absolute nRBC <0.01 Performed By: #### CBC, CMP #### [facility] [address] [place], [place] [address] COMP METABOLIC PANEL Collected: 04/19/2018 Status: F Source: [place] 4:35 AM [facility] REPOSITORY TYPE CODE TESTS RESULT OUT OF REFERENCE UNITS RANGE LAB TP 6.3-8.0 g/dL Low Protein, Total 6.2 LAB ALB 3.9-4.9 g/dL Low Albumin 3.0 LAB CA 8.5-10.2 mg/dL Calcium, Total 9.4 LAB TBIL 0.2-1.3 mg/dL Bilirubin, Total 0.5 LAB ALKP 36-108 U/L Alkaline Phosphatase 47 LAB AST 14-40 U/L AST 26 LAB GLU 74-99 mg/dL Glucose High 123 Result Comment: The [place] Diabetes [employer] (ADA) provides guidance for cutoff values for fasting glucose and random glucose. The ADA defines fasting as no caloric intake for at least 8 hours. Fas ting plasma glucose results between 100 to 125 mg/dL indicate increased risk for diabetes (prediabetes). Fasting plasma glucose results greater than or equal to 126 mg/dL meet the criteria for diagnosis of diabetes. In the absence of unequivocal hyperglycemia, results should be confirmed by repeat testing. In a patient with classic symptoms of hyperglycemia or hyperglycemic crisis, random plasma glucose results greater than or equal to 200 mg/dL meet the criteria for diagnosis of diabetes. Reference: Standards of Medical Care in Diabetes 2016, [place] [employer]. Diabetes Care. 2016.39(Suppl 1). LAB BUN 9-24 mg/dL BUN 11 LAB CRET 0.73-1.22 mg/dL Creatinine 0.92 LAB NA 136-144 mmol/L Sodium 141 LAB K 3.7-5.1 mmol/L Potassium High 5.3 LAB CL 97-105 mmol/L Chloride 100 LAB CO2 22-30 mmol/L CO2 29 LAB AGAP 9-18 mmol/L Anion Gap 12 LAB ALT 10-54 U/L ALT 27 LAB GFRAA eGFR- Amer. >60 LAB GFRNAA . eGFR-All Other Races >60 Result Comment: eGFR (Estimated GFR) Units of measure: mL/min/1.73 meters squared eGFR is derived from the reexpressed MDRD Study equation using the following parameters: serum creatinine, age, gender and race. The creatinine assay has been calibrated to be traceable to IDMS. An eGFR <60 mL/min/1.73m2 for >3 months is consistent with chronic kidney disease. Refer to KDOQI guidelines for clinical interpretation. In patients with unstable renal function, e.g. those with acute kidney injury, the eGFR may not accurately reflect actual GFR. Performed By: #### CBC, CMP #### [facility] [address] [place], [place] [address] PROGRESS Observed: 04/18/2018 Status: COMPLETED Source: [place] 3:51 PM [facility] REPOSITORY O ID: [id number] Author: Enrike Boudreaux) MD Damien Service: Cardiac Surgery Author Type: Physician Type: Progress Notes Filed: 04/18/2018 3:53 PM Note Text: [facility] C[facility] POSTOP PROGRESS NOTE Day of Surgery:04/12/2018 S/P SURGERY: CABGx3, MACK to LAD , SVG to PD pf CX , SVG to OM INTERVAL EVENTS / PERTINENT ROS: No acute events, afebrile, no diarrhea Rhythm: Sinus Intake/Output Summary (Last 24 hours) at 04/18/18 1551 Last data filed at 04/18/18 1500 Gross per 24 hour Intake 720 ml Output 1590 ml Net -870 ml EKG: most recent image reviewed TELE: most recent recordings reviewed CXR: most recent image reviewed Echocardiogram: most recent image reviewed PHYSICAL EXAM: BP 133/69 Pulse 109 Temp 36.7 ?C (98.1 ?F) (Oral) Resp 18 Ht 177.8 cm (5' 10) Wt 89.9 kg (198 lb 4.8 oz) SpO2 95% BMI 28.45 kg/m? Neuro: AANDO x 3 moves all extremities with no apparent weakness CV: no jugular venous distention Heart Exam: RRR without murmur, gallop, or rubs. No ectopy. Resp: diminished breath sounds Abd: soft, nontender, nondistended; BS normal; no masses or organomegaly noted. Skin: Skin color, texture, turgor normal, no suspicious rashes or lesions Ext: Trace edema Surgical incisions: clean, dry and intact Chest tube: No Pacer wires: No HISTORY, ASSESSMENT AND PLAN: Problem Transition of Care Performed With Sharing of Clinical Summary Indication for Surgery: Coronary Artery Disease LVEF: 57% RVF: Normal CARDS: Li Mcguire EKG: Sinus rhythm Important/Relevant PMH/PSH: CAD, NSTEMI, HTN, HLD, PAD/PVD, CVA (unknown residual) DM2. Preoperative Hospital Course (narrative):Pt presented to [facility] on 04/01/18 w a 7d hx of increasing cough and SOB, CP wo radiation, and diarrhea. Transferred from OSH w/ NSTEMI. C. Diff positive at OSH, continue PO vanco. Procedure/Surgeries: 04/12/2018 CABGx3, MACK to LAD , SVG to PD pf CX , SVG to OM Airway Difficulty: Grade I - No special instrumentation OR Course: Uncomplicated Pacing wires: No,pulled on 04/18 Postoperative Course/General Impression: (narrative or log of major events with date of onset): Arrived to unit intubated and sedated. Cardiac insufficiency coming off CPB requiring epinephrine infusion, now off. Hypertensive on arrival to unit, NTG infusion started to maintain MAPs 65-75. Currently on levophed, wean as able. IVF resuscitation as needed. Pain AND glucose control. Extubated dos. Weaned from pressors pod#1. Issues to communicate at signout: -CABG x3: Continue ASA, Statin and BB. - DM: endocrine following. - C-diff: ID following, continue oral vanco. - Small biapical pneumothoraces : left greater than right. No change after clamping study - Lives in [place], [place] with spouse. Consult to PT for anticipated needs. No anticipated discharge date. Discharge Planning: Anticipated Discharge Date: Unknown Unknown- Still with Left PL. Care Management Discharge Needs: Needs Prior to Discharge: To Be Determined Coronary Artery Disease Involving [place] Coronary Artery of [place] Heart With Unstable Angina Pectoris (Hcc) History: Recent NSTEMI Assessment: 04/12/2018 s/p CABGx3, MACK to LAD , SVG to PD pf CX , SVG to OM Plan: CAD Core Measures: Aspirin: Yes Beta blockers: Yes Statins: Yes Bilateral Pneumothoraces History: Developed post-op Assessment: repated CXR shows decreased biapical pneumothoraces, no change after clamping study this AM Plan: Discontinue left PL. CT Post-Operative Pain History: Developed postoperatively Assessment: well managed with current pain medication regimen. Plan: Continue scheduled daily Lidoderm patches and PRN Tylenol and Oxycodone. Pain goal < 4 DM (Diabetes Mellitus), Type 2 With Neurological Complications (Hcc) History: HgA1C 5.7. Home regimen: humalog insulin Assessment: Current BG range 94-134 Plan: Endo following. RECOMMENDATIONS: ? ?Basal Insulin: Lantus 30?units q pm ? ?Prandial Insulin: Humalog 5?units AC TID ? ??Supplemental Sliding Scale: Humalog Program #2 AC AND HS ? ?Accuchecks: AC/HS ? ?Recommend Heart Healthy Diet and CHO Controlled Diet ? ?Consult CDE regarding: DM Education including none COMPUTER FORENSICS EXAMINER to review PARUL C. Difficile Colitis History: C. Diff positive at OSH. Assessment: Stable, no diarrhea Plan: ID following, continue PO vancomycin. last dose on 04/20 DAILY STEP DOWN CHECKLIST FOR CATHETER RELATED INFECTION PREVENTION CVC, PICC, Josh and/or Permacath present? No Does the patient have a urinary catheter beyond POD 2? No VTE Risk Assessment: High risk VTE Mechanical and/or Pharmacologic Prophylaxis: IPC Device and Subcutaneous Heparin Labs and medications reviewed in [facility] SIGNATURE: Enrike Quezada MD PhD PATIENT NAME: Rick George Jr. DATE: April 18, 2018 TIME: 3:51 PM PAGER/CONTACT #: [phone] PROCEDURE Observed: 04/18/2018 Status: COMPLETED Source: [place] 3:46 PM [facility] REPOSITORY HNO ID: [id number] Author: Enrike Quezada MD Service: Cardiac Surgery Author Type: Physician Type: Procedures Filed: 04/18/2018 3:47 PM Note Text: Remaining left pleural CT - < 200 cc serosanguinous drainage out over past 24 hrs. No air leak or SQ emphysema. CXR on waterseal reviewed AND does not demonstrate significant pneumothorax. CT removed - site closed with purse string sutures AND dressed with vasoline gauze. Patient tolerated procedure well. Repeat CXR and review with CTS if needed Enrike Quezada MD PhD April 18, 2018 3:46 PM PROCEDURE Observed: 04/18/2018 Status: COMPLETED Source: [place] 3:46 PM [facility] REPOSITORY HNO ID: [id number] Author: Enrike () MD Damien Service: Cardiac Surgery Author Type: Physician Type: Procedures Filed: 04/18/2018 3:46 PM Note Text: Platelet Count 327 04/18/2018 Platelet Count 295 04/17/2018 Platelet Count 288 04/16/2018 Platelet Count 220 04/15/2018 PT INR 1.2 04/12/2018 PT INR 1.0 04/12/2018 PT INR 1.0 04/11/2018 PT INR 1.0 04/09/2018 rhythm normal sinus rhythm 2 ventricular wires were discontinued without difficulty Mr. Rick George Jr. and bedside RN aware of 30 min bedrest restriction Enrike Quezada MD PhD XR CHEST 2V FRONTAL/LAT Observed: 04/18/2018 Status: F Source: [place] 1:36 PM [facility] REPOSITORY * * *Final Report* * * DATE OF EXAM: Apr 18 2018 1:36PM [id number] - XR CHEST 2V FRONTAL/LAT / PROCEDURE REASON: Pneumothorax * * * * Physician Interpretation * * * * EXAMINATION: CHEST RADIOGRAPH (2 VIEW FRONTAL and LATERAL) Clinical History: Pneumothorax MQ: XC2_5 Comparison: 04/18/2018 at 0821 hours RESULT: Lines, tubes, and devices: Left-sided chest tube stable in position. Temporary epicardial pacing leads/wires are noted. Lungs and pleura: There is a trace left apical pneumothorax, unchanged and question tiny right apical pneumothorax. Lung volumes are low and there is bibasilar subsegmental atelectasis. There are trace bilateral pleural effusions. Prominence of the interstitial markings, which may be reflective of trace interstitial edema versus crowding of vasculature secondary to hypoinflated lungs. Cardiomediastinal silhouette: Status post median sternotomy and CABG. Cardiomediastinal silhouette is stable in size. Other: Vertebral body heights are maintained. Minimal endplate degenerative changes present within the thoracic spine. Sternotomy wires unchanged in alignment. IMPRESSION: See results. Animal Technician: PSCB Transcribe Date/Time: Apr 18 2018 2:39P Dictated by : LINDSEY AGUILAR MD This examination was interpreted and the report reviewed and electronically signed by: LINDSEY AGUILAR MD on Apr 18 2018 2:49PM EST [id number] PROGRESS Observed: 04/18/2018 Status: COMPLETED Source: [place] 1:34 PM [facility] REPOSITORY HNO ID: [id number] Author: Raciel Wilson Service: (none) Author Type: (none) Type: Progress Notes Filed: 04/18/2018 1:35 PM Note Text: Radiology Service Progress Note PATIENT NAME: Rick George Jr. DATE OF SERVICE: April 18, 2018 TIME: 1:34 PM PATIENT IDENTITY VERIFICATION COMPLETED USING TWO (2) METHODS: Patient confirmed name verbally and ID band matches.. PATIENT GENDER DATA: Male PATIENT RELEVANT IMPLANT DATA REVIEWED: Yes RADIOLOGY DEPARTMENT: General X-ray: Exam(s) Completed: Chest X-Ray PERIPHERAL IV DATA: Not applicable SIGNED BY: Rt Collin April 18, 2018 1:34 PM CONSULT PROG Observed: 04/18/2018 Status: COMPLETED Source: [place] 10:10 AM [facility] REPOSITORY HNO ID: [id number] Author: Radha Singh Service: Endocrinology Author Type: Nurse Practitioner Type: Consult Progress Note Filed: 04/18/2018 5:49 PM Note Text: DIABETES CARE TEAM NOTE SERVICE DATE: 04/18/2018 SERVICE TIME: 10:10 AM Subjective Summary of History from Prior Record: Consult Date: 04/13/18 ? Subjective ? ? HPI: Mr. Rick George Jr. is a 58 year old male with a 213?year history of Diabetes Mellitus Type 2 hyperglycemia?(diagnosed 2004)who was admitted on 04/03/2018 transferred from OSH w/ NSTEMI. C diff positive at OSH. Now s/p CABG x 3 on 04/12/2018 Past medical history significant for HTN, CAD, CVA, PAD, PVD, and NSTEMI. Patient ?does ?Exercise. 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 Last HbA1c was 5.7%on 04/04/2018. ?He has a family history of diabetes in his mother, father, grandparents from both sides. He is followed by PCP?for his diabetes at [place] [facility] [place]. ? ? DIABETIC COMPLICATIONS: Retinopathy: Unspecified Neuropathy but relate that ?to stroke not DM/CVA in 2012 Cataracts ? Pre-Admission DM Regimen: Preadmission oral agents: None Preadmission insulin regimen: Lantus 20?units ?Q HS Humalog 12-20?units ?AC and Sliding scale ( I check my BG 2 hours after meal intake and use scale if gluocse ?is high). ? Self Monitoring Blood Glucose: Type of Monitor: Freestyle? 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 PERTINENT ROS: Constitutional:Feels well, no complaints Appetite:Intact GI:No nausea, no vomitting, + loose stool Objective PHYSICAL EXAM: BP 129/72 Pulse 103 Temp 37.2 ?C (98.9 ?F) (Oral) Resp 18 Ht 177.8 cm (5' 10) Wt 89.9 kg (198 lb 4.8 oz) SpO2 97% BMI 28.45 kg/m? General Appearance:A+O x 3 and In no apparent distress Affect:Pleasant and cooperative Eyes:Sclerae non-icteric Abdomen:Soft, non-tender Skin/Lipohypertrophy:no cyanosis Edema:no + Chest tube x1 HR on tele 94 Laboratory Results: Glucose (mg/dL) Date Value 04/18/2018 178 Potassium (mmol/L) Date Value 04/18/2018 4.6 Sodium (mmol/L) Date Value 04/18/2018 135 Chloride (mmol/L) Date Value 04/18/2018 95 CO2 (mmol/L) Date Value 04/18/2018 29 Creatinine (mg/dL) Date Value 04/18/2018 0.95 BUN (mg/dL) Date Value 04/18/2018 13 Anion Gap (mmol/L) Date Value 04/18/2018 11 Calcium (mg/dL) Date Value 04/18/2018 8.9 ALT Date Value Ref Range Status 04/18/2018 23 10 - 54 U/L Final AST Date Value Ref Range Status 04/18/2018 22 14 - 40 U/L Final Hemoglobin (g/dL) Date Value 04/18/2018 8.4 Hematocrit (%) Date Value 04/18/2018 26.6 WBC (k/uL) Date Value 04/18/2018 8.57 Platelet Count (k/uL) Date Value 04/18/2018 327 Hemoglobin A1C (%) Date Value 04/04/2018 5.7 LV Ejection Fraction (%) Date Value 04/04/2018 57 Diet: Heart Healthy: Cardiac 2 GM SODIUM (<200 MG CHOL / LOW SAT FAT), Carb Control: 3--5 CARBS/MEAL (<200 MG CHOL / LOW SAT FAT) and Fluid Restriction : 1500ml daily Supplements: Boost ? Other Pertinent Medications: Steroids no ? Diabetes Management in Hospital Hospital ?BG values or ranges: ? Date AM LUNCH DINNER HS 3AM 04/12/2018 141 Lantus 5u 120 214-227 191 222-191 04/13/2018 149-186 RHI gtt 5.4-2.2 163-130 Lantus 30 u ? 136-147 120? ? 04/14/18? ?148(h5) 144?(h5) 125 (h5)Lantus 30u 113? ? ?04/15 94 (h5)? ?130(h5) 202(h9)? Lantus 30 u 205(h4)? ? 04/16 156(h7) 221(h11) 151(h9) Lantus 30 u ?183(H2) 105? 7/? ?101(H7) 174(H7+2)? 122(H7) Lantus 30 u? ?159(H2) ? 04/18 185(H7+2) 168(H7+2) 99(H7) Lantus 30 u ? ? ? Impression/Recommendations:? Patient with uncontrolled Diabetes Mellitus Type 2 hyperglycemia?s/p CABG x 3 on 04/12/2018 whom we have been consulted for glycemic control. FBG higher today for now no changes will monitor for pattren. Will follow. ? Weight 90.7 kg ? RECOMMENDATIONS: ? ??Basal Insulin: Lantus 30?units q pm ? ?Prandial Insulin: Humalog ?units AC TID ? ??Supplemental Sliding Scale: Humalog Program #2 AC AND HS ? ?Accuchecks: AC/HS ? ?Recommend Heart Healthy Diet and CHO Controlled Diet ? ?Consult CDE regarding: DM Education including none COMPUTER FORENSICS EXAMINER to review MDI ? DM DISCHARGE PLAN: ? ?MDI insulin of Lantus and Humalog. ? ?Check blood sugars Three times a Day? ? ?Diet: Heart Healthy Diet and CHO Controlled Diet ? ?Exercise as prescribed by cardiology ? ?Follow up with housekeeping/laundry and supervisor fiber locking as recommended. ? ?Patient will need follow-up ?with his home hay baler/PCP in 1-2 weeks after discharge. ? ?Diabetes Care Team Hospital Discharge Help Line: [phone] ? SIGNATURE: Radha Singh APRN.CNP PATIENT NAME: Rick George Jr. DATE: April 18, 2018 TIME: 10:10 AM PAGER/CONTACT #: [phone] PROGRESS Observed: 04/18/2018 Status: COMPLETED Source: [place] 8:31 AM [facility] REPOSITORY O ID: [id number] Author: Tommie Gandhi Rt Service: (none) Author Type: (none) Type: Progress Notes Filed: 04/18/2018 8:32 AM Note Text: Radiology Service Progress Note PATIENT NAME: Rick George Jr. DATE OF SERVICE: April 18, 2018 TIME: 8:31 AM PATIENT IDENTITY VERIFICATION COMPLETED USING TWO (2) METHODS: Patient confirmed name verbally and ID band matches.. PATIENT GENDER DATA: Male PATIENT RELEVANT IMPLANT DATA REVIEWED: Not Applicable RADIOLOGY DEPARTMENT: General X-ray: Exam(s) Completed: Chest X-Ray PERIPHERAL IV DATA: Not applicable SIGNED BY: Tommie Wilson April 18, 2018 8:31 AM XR CHEST 2V FRONTAL/LAT Observed: 04/18/2018 Status: F Source: [place] 8:30 AM [facility] REPOSITORY * * *Final Report* * * DATE OF EXAM: Apr 18 2018 8:30AM JIX [id number] - XR CHEST 2V FRONTAL/LAT / PROCEDURE REASON: Pneumothorax * * * * Physician Interpretation * * * * EXAMINATION: CHEST RADIOGRAPH (2 VIEW FRONTAL and LATERAL) Clinical History: Pneumothorax MQ: XC2_5 Comparison: 04/16/2018 RESULT: Lines, tubes, and devices: Patient is status post median sternotomy. A left-sided chest tube remains in place. Interval removal of mediastinal drain. Few retained epicardial pacer leads are present. Lungs and pleura: Small biapical pneumothoraces are redemonstrated. There is mild elevation of the right hemidiaphragm. There are trace bilateral pleural effusions. There are heterogeneous opacities in the right perihilar region, likely secondary to atelectasis. Mild left basilar atelectasis present.. Cardiomediastinal silhouette: The cardiomediastinal silhouette is mildly enlarged. Minimal postoperative retrosternal gas is noted There are atherosclerotic calcifications in the aortic arch. Other: Endplate degenerative changes are present in the thoracic spine. IMPRESSION: Please see body of the report. Animal Technician: PSCB Transcribe Date/Time: Apr 18 2018 9:08A Dictated by : SUNITA SOLORZANO MD This examination was interpreted and the report reviewed and electronically signed by: SUNITA SOLORZANO MD on Apr 18 2018 9:10AM EST [id number] ALLIED HEALTH Observed: 04/18/2018 Status: COMPLETED Source: [place] 8:30 AM [facility] REPOSITORY HNO ID: [id number] Author: Rick (Ex Phys) Rosa Service: Cardiovascular Medicine Author Type: Fruit Pitter Type: Allied Health Filed: 04/18/2018 10:12 AM Note Text: CARDIAC REHABILITATION PHASE I FOLLOW-UP PATIENT NAME: Rick George Jr. SERVICE DATE: April 18, 2018 SESSION TIME: 0830 Comments: Patient amb. 400 ft. indep. in hallways yesterday without specific complaints. Progress as tolerated and outlined in provided activity guidelines. Questions regarding activity and phase 2 cardiac rehab answered to patient's satisfaction. Copy of order for outpatient cardiac rehab provided. Tolerating exercise well, continue with exercise 4 - 6 x/day. Recommend enrollment in Phase 2, Outpatient Cardiac Rehab in 4-6 weeks at local hospital program. Home Program: Reviewed Home Activity Guidelines as outlined in Your Guide to Cardiac Surgery binder. Frequency: 4 - 6 days/week Intensity: 3 - 4/10 RPE Type: walking - start at 3 - 5 minutes/4 - 6 x day Duration: 20 - 30 minutes -----> 45 + minutes MARTINEZ Sen Pager: [phone] April 18, 2018 CBC Collected: 04/18/2018 Status: F Source: [place] 7:19 AM [facility] REPOSITORY TYPE CODE TESTS RESULT OUT OF REFERENCE UNITS RANGE LAB WBC 3.70-11.00 k/uL WBC 8.57 LAB RBC 4.20-6.00 m/uL Low RBC 2.71 LAB HGB 13.0-17.0 g/dL Low Hemoglobin 8.4 LAB HCT 39.0-51.0 % Low Hematocrit 26.6 LAB MCV 80.0-100.0 fL MCV 98.2 LAB MCH 26.0-34.0 pG MCH 31.0 LAB MCHC 30.5-36.0 g/dL MCHC 31.6 LAB RDWCV 11.5-15.0 % RDW-CV 13.7 LAB PLTCT 150-400 k/uL Platelet Count 327 LAB MPV 9.0-12.7 fL MPV 10.1 LAB ABSNUC <0.01 k/uL Absolute nRBC <0.01 Performed By: #### CBC, CMP #### [facility] [address] [place], [place] [address] COMP METABOLIC PANEL Collected: 04/18/2018 Status: F Source: [place] 7:19 AM [facility] REPOSITORY TYPE CODE TESTS RESULT OUT OF REFERENCE UNITS RANGE LAB TP 6.3-8.0 g/dL Low Protein, Total 6.2 LAB ALB 3.9-4.9 g/dL Low Albumin 3.2 LAB CA 8.5-10.2 mg/dL Calcium, Total 8.9 LAB TBIL 0.2-1.3 mg/dL Bilirubin, Total 0.4 LAB ALKP 36-108 U/L Alkaline Phosphatase 50 LAB AST 14-40 U/L AST 22 LAB GLU 74-99 mg/dL Glucose High 178 Result Comment: The [place] [employer] (ADA) provides guidance for cutoff values for fasting glucose and random glucose. The ADA defines fasting as no caloric intake for at least 8 hours. Fas ting plasma glucose results between 100 to 125 mg/dL indicate increased risk for diabetes (prediabetes). Fasting plasma glucose results greater than or equal to 126 mg/dL meet the criteria for diagnosis of diabetes. In the absence of unequivocal hyperglycemia, results should be confirmed by repeat testing. In a patient with classic symptoms of hyperglycemia or hyperglycemic crisis, random plasma glucose results greater than or equal to 200 mg/dL meet the criteria for diagnosis of diabetes. Reference: Standards of Medical Care in Diabetes 2016, [place] [employer]. Diabetes Care. 2016.39(Suppl 1). LAB BUN 9-24 mg/dL BUN 13 LAB CRET 0.73-1.22 mg/dL Creatinine 0.95 LAB NA 136-144 mmol/L Sodium Low 135 LAB K 3.7-5.1 mmol/L Potassium 4.6 LAB CL 97-105 mmol/L Chloride Low 95 LAB CO2 22-30 mmol/L CO2 29 LAB AGAP 9-18 mmol/L Anion Gap 11 LAB ALT 10-54 U/L ALT 23 LAB GFRAA eGFR- Amer. >60 LAB GFRNAA . eGFR-All Other Races >60 Result Comment: eGFR (Estimated GFR) Units of measure: mL/min/1.73 meters squared eGFR is derived from the reexpressed MDRD Study equation using the following parameters: serum creatinine, age, gender and race. The creatinine assay has been calibrated to be traceable to [facility]. An eGFR <60 mL/min/1.73m2 for >3 months is consistent with chronic kidney disease. Refer to KDOQI guidelines for clinical interpretation. In patients with unstable renal function, e.g. those with acute kidney injury, the eGFR may not accurately reflect actual GFR. Performed By: #### CBC, CMP #### [facility] [address] [place], [place] [address] PROGRESS Observed: 04/17/2018 Status: COMPLETED Source: [place] 2:44 PM [facility] REPOSITORY HNO ID: [id number] Author: Enrike Boudreaux) MD Damien Service: Cardiac Surgery Author Type: Physician Type: Progress Notes Filed: 04/17/2018 2:46 PM Note Text: [facility] CTS POSTOP PROGRESS NOTE Day of Surgery:04/12/2018 S/P SURGERY: CABGx3, MACK to LAD , SVG to PD pf CX , SVG to OM INTERVAL EVENTS / PERTINENT ROS: No acute events,pain controlled,ambulation No diarrhea Rhythm: Sinus Intake/Output Summary (Last 24 hours) at 04/17/18 1444 Last data filed at 04/17/18 1300 Gross per 24 hour Intake 920 ml Output 2300 ml Net -1380 ml EKG: most recent image reviewed TELE: most recent recordings reviewed CXR: most recent image reviewed Echocardiogram: most recent image reviewed PHYSICAL EXAM: BP 98/57 Pulse 90 Temp 36.7 ?C (98.1 ?F) (Oral) Resp 18 Ht 177.8 cm (5' 10) Wt 90.7 kg (200 lb) SpO2 95% BMI 28.70 kg/m? Neuro: AANDO x 3 moves all extremities with no apparent weakness CV: no jugular venous distention Heart Exam: RRR without murmur, gallop, or rubs. No ectopy. Resp: diminished breath sounds Abd: soft, nontender, nondistended; BS normal; no masses or organomegaly noted. Skin: Skin color, texture, turgor normal, no suspicious rashes or lesions Ext: Trace edema Surgical incisions: clean, dry and intact Chest tube: Yes: Pacer wires: Yes, grounded HISTORY, ASSESSMENT AND PLAN: Problem Transition of Care Performed With Sharing of Clinical Summary Indication for Surgery: Coronary Artery Disease LVEF: 57% RVF: Normal CARDS: Li Mcguire EKG: Sinus rhythm Important/Relevant PMH/PSH: CAD, NSTEMI, HTN, HLD, PAD/PVD, CVA (unknown residual) DM2. Preoperative Hospital Course (narrative):Pt presented to [facility] on 04/01/18 w a 7d hx of increasing cough and SOB, CP wo radiation, and diarrhea. Transferred from OSH w/ NSTEMI. C. Diff positive at OSH, continue PO vanco. Procedure/Surgeries: 04/12/2018 CABGx3, MACK to LAD , SVG to PD pf CX , SVG to OM Airway Difficulty: Grade I - No special instrumentation OR Course: Uncomplicated Pacing wires: Yes: Ventricular: When discontinuing pacing wires: Pull all pacing wires Postoperative Course/General Impression: (narrative or log of major events with date of onset): Arrived to unit intubated and sedated. Cardiac insufficiency coming off CPB requiring epinephrine infusion, now off. Hypertensive on arrival to unit, NTG infusion started to maintain MAPs 65-75. Currently on levophed, wean as able. IVF resuscitation as needed. Pain AND glucose control. Extubated dos. Weaned from pressors pod#1. Issues to communicate at signout: -CABG x3: Continue ASA, Statin and BB. - DM: endocrine following. - C-diff: ID following, continue oral vanco. - Small biapical pneumothoraces : left greater than right. Will d/c mediastinal sonido and keep Left PL. Repeat CXR in AM. - Lives in [place], [place] with spouse. Consult to PT for anticipated needs. No anticipated discharge date. Discharge Planning: Anticipated Discharge Date: Unknown Unknown- Still with Left PL. Care Management Discharge Needs: Needs Prior to Discharge: To Be Determined Coronary Artery Disease Involving [place] Coronary Artery of [place] Heart With Unstable Angina Pectoris (Hcc) History: Recent NSTEMI Assessment: 04/12/2018 s/p CABGx3, MACK to LAD , SVG to PD pf CX , SVG to OM Plan: CAD Core Measures: Aspirin: Yes Beta blockers: Yes Statins: Yes Bilateral Pneumothoraces History: Developed post-op Assessment: repated CXR shows decreased biapical pneumothoraces Plan: Discontinue the mediastinal sonido and continue with the left PL. Repeat CXR in AM Atelectasis History: Post op atelectasis Assessment: Repeated CXR shows decreased pneumothorax. On RA Plan: encourage pep use, OOB to chair, ambulation, encourage cough AND deep breathing. Optimize pain control. Post-Operative Pain History: Developed postoperatively Assessment: Pain well managed with current pain medication regimen. Plan: Continue scheduled daily Lidoderm patches and PRN Tylenol and Oxycodone. Pain goal < 4 DM (Diabetes Mellitus), Type 2 With Neurological Complications (Hcc) History: HgA1C 5.7. Home regimen: humalog insulin Assessment: Current BG range 94-134 Plan: Endo following. RECOMMENDATIONS: ? ??Basal Insulin: Lantus 30?units q pm ? ?Prandial Insulin: Humalog 5?units AC TID ? ??Supplemental Sliding Scale: Humalog Program #2 AC AND HS ? ?Accuchecks: AC/HS ? ?Recommend Heart Healthy Diet and CHO Controlled Diet ? ?Consult CDE regarding: DM Education including none COMPUTER FORENSICS EXAMINER to review MDI C. Difficile Colitis History: C. Diff positive at OSH. Assessment: Stable, no diarrhea Plan: ID following, continue PO vancomycin. Discharge Planning Issues -Lives in [place], [place] with spouse. No anticipated discharge needs DAILY STEP DOWN CHECKLIST FOR CATHETER RELATED INFECTION PREVENTION CVC, PICC, Josh and/or Permacath present? No Does the patient have a urinary catheter beyond POD 2? No VTE Risk Assessment: High risk VTE Mechanical and/or Pharmacologic Prophylaxis: IPC Device and Subcutaneous Heparin Labs and medications reviewed in [facility] SIGNATURE: Enrike Quezada MD PhD PATIENT NAME: Rick George Jr. DATE: April 17, 2018 TIME: 2:44 PM PAGER/CONTACT #: [phone] PROCEDURE Observed: 04/17/2018 Status: COMPLETED Source: [place] 2:28 PM [facility] REPOSITORY HNO ID: [id number] Author: Enrike Boudreaux) MD Damien Service: Cardiac Surgery Author Type: Physician Type: Procedures Filed: 04/17/2018 2:28 PM Note Text: Remaining MS Mallory - < 50 cc serosanguinous drainage out over past 24 hrs. No air leak or SQ emphysema. CXR on waterseal reviewed AND does not demonstrate significant pneumothorax. CT removed - site closed with purse string sutures AND dressed with vasoline gauze. Patient tolerated procedure well. Repeat CXR and review with CTS if needed Enrike Quezada MD PhD April 17, 2018 2:28 PM CASE MANAGEM Observed: 04/17/2018 Status: COMPLETED Source: [place] 2:18 PM [facility] REPOSITORY HNO ID: [id number] Author: Estephania LernerRn) LIN Gunn Service: Case Management Author Type: Registered Nurse Type: Care Mgt Progress Note Filed: 04/17/2018 2:22 PM Note Text: CARE MANAGEMENT PROGRESS NOTE SERVICE DATE: 04/17/2018 SERVICE TIME: 2:18 pm LOS: 13 days Needs Prior to Discharge: None CHANGE IN CONDITION NOTE: [facility]. S/P CABG X 3 on 04/12/18. Spoke with patient and his daughter at bedside. Introduced self and explained role of CM for discharge planning and transitioning of care. Patient awaiting to have his chest tube removed. States he is planning on being discharged home tomorrow. Daughter states family will provide transportation home. Patient states he wad independent prior to admission. Patient has no DMEs, and no home oxygen. Anticipate patient will be discharged with basic needs when medically ready. CM will continue to follow medical course and re-assess discharge needs if indicated. SIGNATURE: Estephania Gunn RN PATIENT NAME: Rick George Jr. DATE: April 17, 2018 TIME: 2:18 PM PAGER/CONTACT #: [phone] CONSULT PROG Observed: 04/17/2018 Status: COMPLETED Source: [place] 1:37 PM [facility] REPOSITORY O ID: [id number] Author: Marita Baptiste Service: Infectious Disease Author Type: Physician Type: Consult Progress Note Filed: 04/17/2018 1:39 PM Note Text: INFECTIOUS DISEASE CONSULT SERVICE PROGRESS NOTE Date: April 17, 2018 Patient Name: Rick George Jr. Interval Events: Underwent CABG on 04/12/18 Transferred to [facility] Having 1 BM daily--more solid. Denies new complaints Off systemic antibiotics MEDICATIONS Medications reviewed. Current hospital medications: insulin lispro 7 Units injection (rapid acting) (HumaLOG) 7 Units SUBCUTANEOUS DAILY wLUNCH insulin lispro 7 Units injection (rapid acting) (HumaLOG) 7 Units SUBCUTANEOUS DAILY wDINNER insulin lispro 7 Units injection (rapid acting) (HumaLOG) 7 Units SUBCUTANEOUS DAILY WITH BREAKFAST furosemide 20 mg tab(s) (LASIX) 20 mg ORAL DAILY potassium chloride ER 20 mEq tab(s) (K-DUR, KLOR-CON) 20 mEq ORAL DAILY rosuvastatin 10 mg tab(s) (CRESTOR) 10 mg ORAL q 48 HR gabapentin 900 mg cap(s) (NEURONTIN) 900 mg ORAL q 8 H cetirizine 10 mg tab(s) (ZyrTEC) 10 mg ORAL DAILY oxyCODONE IR 5-10 mg tab(s) (ROXICODONE) 5-10 mg ORAL/FEEDING TUBE q 4 H PRN lidocaine 5 % 1 Patch (LIDODERM) 1 Patch TRANSDERMAL DAILY lidocaine patch - REMOVE OTHER AT BEDTIME lidocaine - VERIFY PATCH OTHER q 8 H 0.9% NaCl 3-5 mL 3-5 mL INTRAVENOUS q 12 H 0.9% NaCl 10 mL 10 mL INTRAVENOUS q 12 H therapeutic multivitamin 1 tablet tab(s) (THERA VITAMIN) 1 tablet ORAL DAILY WITH BREAKFAST pantoprazole DR 20 mg tab(s) (PROTONIX) 20 mg ORAL DAILY (6 AM) bisacodyl 10 mg suppository (DULCOLAX) 10 mg RECTAL DAILY PRN sodium phosphate-sodium bisphosphate 133 mL enema (FLEET) 133 mL RECTAL PRN magnesium hydroxide 400 mg/5 mL 30 mL (MOM) 30 mL ORAL q 6 H PRN nortriptyline 50 mg cap(s) (PAMELOR) 50 mg ORAL AT BEDTIME dextrose 40 % 15 g 15 g ORAL PRN glucagon 1 mg injection (GLUCAGEN) 1 mg INTRAMUSCULAR PRN dextrose 50% in water 25 mL syringe 12.5 g INTRAVENOUS PRN insulin lispro injection (rapid acting) (HumaLOG) SUBCUTANEOUS w MEALS AND HS insulin glargine 30 Units pen (long acting) (LANTUS SOLOSTAR, BASAGLAR KWIKPEN) 30 Units SUBCUTANEOUS DAILY (5 PM) metoprolol tartrate (short acting) 12.5 mg tab(s) (LOPRESSOR) 12.5 mg ORAL q 12 H senna-docusate 8.6-50 mg 1 tablet (SENNA-S) 1 tablet ORAL BID ondansetron (PF) 4 mg injection (ZOFRAN) 4 mg INTRAVENOUS q 6 H PRN 0.9% NaCl 3-5 mL 3-5 mL INTRAVENOUS q 12 H 0.9% NaCl 10 mL 10 mL INTRAVENOUS q 12 H lidocaine 5 % 1 Patch (LIDODERM) 1 Patch TRANSDERMAL DAILY lidocaine patch - REMOVE OTHER AT BEDTIME lidocaine - VERIFY PATCH OTHER q 8 H acetaminophen 650 mg tab(s) (TYLENOL) 650 mg ORAL/FEEDING TUBE q 4 H PRN aspirin 162 mg chewable tab(s) 162 mg ORAL/FEEDING TUBE DAILY heparin 5,000 Units injection 5,000 Units SUBCUTANEOUS q 12 H vancomycin 125 mg oral liquid (VANCOCIN) 125 mg ORAL QID EXAMINATION: Vital signs: BP 98/57 Pulse 90 Temp 36.7 ?C (98.1 ?F) (Oral) Resp 18 Ht 177.8 cm (5' 10) Wt 90.7 kg (200 lb) SpO2 95% BMI 28.70 kg/m? Temp (24hrs), Av.7 ?C (98.1 ?F), Min:36.5 ?C (97.7 ?F), Max:36.9 ?C (98.5 ?F) GENERAL APPEARANCE:alert, in no acute distress SKIN: negative HEAD/SINUSES: No significant findings. EYES: PERRLA, conjunctiva clear LUNGS: Clear to auscultation, No crackles. HEART: Regular rate and rhythm. Median sternotomy well approximated, no erythema CT site bandage in place ABDOMEN: Soft, Non-tender,non distended EXTREMITIES: negative edema NEURO: Awake, alert , no involuntary motions. Exam unchanged from note dated 04/14/18 except where updated. LABORATORY DATA: WBC (k/uL) Date Value 04/17/2018 8.99 04/16/2018 12.36 04/15/2018 14.61 Hemoglobin (g/dL) Date Value 04/17/2018 7.9 04/16/2018 8.0 04/15/2018 8.4 Platelet Count (k/uL) Date Value 04/17/2018 295 04/16/2018 288 04/15/2018 220 Creatinine (mg/dL) Date Value 04/17/2018 0.94 04/16/2018 0.96 04/15/2018 1.02 MICROBIOLOGY DATA: reviewed IMAGING DATA: Films personally reviewed. ASSESSMENT/RECOMMENDATIONS: Recent treatment for staph abscess after stepping on nail. Treated with antibiotics and improved about 3 weeks ago no further symptoms Had recent episode of severe coughing after exposure to possibly moldy hay--now resolved ?hypersensitivity c diff--per patient had about 20 bms/day prior to calling PCP and treated with flagyl--stool became more solidified, decreased frequency on Tues Now having more solid stools ~ 1 daily ? Main concern in setting of c diff--frequent BMs in setting of surgery--this has improved. Small risk of worsening with perioperative antibiotcs, maintain oral vanco Foot infection--resolved ? Doing well post op, no diarrhea Continue PO vancomycin--complete 3 additional days. (will be 17 days total treatment) Will sign off. Please reconsult with further questions Marita Baptiste MD Staff physician Infectious Diseases Pager: [phone] Date and Time of Service: April 17, 2018 CONSULT PROG Observed: 04/17/2018 Status: COMPLETED Source: [place] 7:56 AM [facility] [place] REPOSITORY HNO ID: [id number] Author: Radha (Ad) Francisco Service: Endocrinology Author Type: Nurse Practitioner Type: Consult Progress Note Filed: 04/17/2018 6:44 PM Note Text: DIABETES CARE TEAM NOTE SERVICE DATE: 04/17/2018 SERVICE TIME: 7:56 AM Subjective Summary of History from Prior Record: Consult Date: 04/13/18 ? Subjective ? ? HPI: Mr. Rick George Jr. is a 58 year old male with a 213?year history of Diabetes Mellitus Type 2 hyperglycemia?(diagnosed 2004)who was admitted on 04/03/2018 transferred from OSH w/ NSTEMI. C diff positive at OSH. Now s/p CABG x 3 on 04/12/2018 Past medical history significant for HTN, CAD, CVA, PAD, PVD, and NSTEMI. Patient ?does ?Exercise. 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 Last HbA1c was 5.7%on 04/04/2018. ?He has a family history of diabetes in his mother, father, grandparents from both sides. He is followed by PCP?for his diabetes at [place] Dr. Escalante. ? ? DIABETIC COMPLICATIONS: Retinopathy: Unspecified Neuropathy but relate that ?to stroke not DM/CVA in 2012 Cataracts ? Pre-Admission DM Regimen: Preadmission oral agents: None Preadmission insulin regimen: Lantus 20?units ?Q HS Humalog 12-20?units ?AC and Sliding scale ( I check my BG 2 hours after meal intake and use scale if gluocse is high). ? Self Monitoring Blood Glucose: Type of Monitor: Freestyle? Frequency of Monitoring: Three times a Day BG Values: 150-160 post meals at times in 200mg/dL Hypoglycemia: No but per primary note at times low 60 mg/dL INTERVAL HPI: uneventful PERTINENT ROS: Constitutional:sleeping Appetite:Intact GI:No nausea, no vomitting, no diarrhea, no constipation Objective PHYSICAL EXAM: BP 106/96 Pulse 91 Temp 36.8 ?C (98.3 ?F) (Oral) Resp 20 Ht 177.8 cm (5' 10) Wt 90.7 kg (200 lb) SpO2 92% BMI 28.70 kg/m? General Appearance:In no apparent distress and Sleeping soundly Affect:calm Eyes:closed HR on tele 84 Laboratory Results: Glucose (mg/dL) Date Value 04/17/2018 105 Potassium (mmol/L) Date Value 04/17/2018 4.8 Sodium (mmol/L) Date Value 04/17/2018 137 Chloride (mmol/L) Date Value 04/17/2018 98 CO2 (mmol/L) Date Value 04/17/2018 29 Creatinine (mg/dL) Date Value 04/17/2018 0.94 BUN (mg/dL) Date Value 04/17/2018 15 Anion Gap (mmol/L) Date Value 04/17/2018 10 Calcium (mg/dL) Date Value 04/17/2018 8.8 ALT Date Value Ref Range Status 04/17/2018 23 10 - 54 U/L Final AST Date Value Ref Range Status 04/17/2018 17 14 - 40 U/L Final Hemoglobin (g/dL) Date Value 04/17/2018 7.9 Hematocrit (%) Date Value 04/17/2018 25.1 WBC (k/uL) Date Value 04/17/2018 8.99 Platelet Count (k/uL) Date Value 04/17/2018 295 Hemoglobin A1C (%) Date Value 04/04/2018 5.7 LV Ejection Fraction (%) Date Value 04/04/2018 57 Diet: Heart Healthy: Cardiac 2 GM SODIUM (<200 MG CHOL / LOW SAT FAT), Carb Control: 3--5 CARBS/MEAL (<200 MG CHOL / LOW SAT FAT) and Fluid Restriction : 1500ml daily Supplements: Boost Other Pertinent Medications: Steroids no Diabetes Management in Hospital Hospital ?BG values or ranges: ? Date AM LUNCH DINNER HS 3AM 04/12/2018 141 Lantus 5u 120 214-227 191 222-191 04/13/2018 149-186 RHI gtt 5.4-2.2 163-130 Lantus 30 u ? 136-147 120? ? 04/14/18? ?148(h5) 144?(h5) 125 (h5)Lantus 30u 113? ? ?04/15 94 (h5)? ?130(h5) 202(h9)? Lantus 30 u 205(h4)? ? 04/16 156(h7) 221(h11) 151(h9) Lantus 30 u ?183(H2) 105? 7/2? ?101(H7) 174(H7+2)? 122(H7) Lantus 30 u? Impression/Recommendations:? Patient with uncontrolled Diabetes Mellitus Type 2 hyperglycemia?s/p CABG x 3 on 04/12/2018 whom we have been consulted for glycemic control. BG above normal but overal stable, higher H bolus with BRK today. Will follow. Weight 90.7 kg RECOMMENDATIONS: ? ??Basal Insulin: Lantus 30?units q pm ? ?Prandial Insulin: Humalog ?units AC TID ? ??Supplemental Sliding Scale: Humalog Program #2 AC AND HS ? ?Accuchecks: AC/HS ? ?Recommend Heart Healthy Diet and CHO Controlled Diet ? ?Consult CDE regarding: DM Education including none COMPUTER FORENSICS EXAMINER to review MDI ? DM DISCHARGE PLAN: ? ?MDI insulin of Lantus and Humalog. ? ?Check blood sugars Three times a Day? ? ?Diet: Heart Healthy Diet and CHO Controlled Diet ? ?Exercise as prescribed by cardiology ? ?Follow up with housekeeping/laundry and supervisor fiber locking as recommended. ? ?Patient will need follow-up ?with his home hay baler/PCP in 1-2 weeks after discharge. ? ?Diabetes Care Team Hospital Discharge Help Line: [phone] ? SIGNATURE: Radha Singh APRN.CNP PATIENT NAME: Rick George Jr. DATE: April 17, 2018 TIME: 7:56 AM PAGER/CONTACT #: [phone] CBC Collected: 04/17/2018 Status: F Source: [place] 5:50 AM [facility] REPOSITORY TYPE CODE TESTS RESULT OUT OF REFERENCE UNITS RANGE LAB WBC 3.70-11.00 k/uL WBC 8.99 LAB RBC 4.20-6.00 m/uL Low RBC 2.58 LAB HGB 13.0-17.0 g/dL Low Hemoglobin 7.9 LAB HCT 39.0-51.0 % Low Hematocrit 25.1 LAB MCV 80.0-100.0 fL MCV 97.3 LAB MCH 26.0-34.0 pG MCH 30.6 LAB MCHC 30.5-36.0 g/dL MCHC 31.5 LAB RDWCV 11.5-15.0 % RDW-CV 13.8 LAB PLTCT 150-400 k/uL Platelet Count 295 LAB MPV 9.0-12.7 fL MPV 10.2 LAB ABSNUC <0.01 k/uL Absolute nRBC <0.01 Performed By: #### CBC, CMP #### [facility] [address] [place], [place] [address] COMP METABOLIC PANEL Collected: 04/17/2018 Status: F Source: [place] 5:50 AM [facility] REPOSITORY TYPE CODE TESTS RESULT OUT OF REFERENCE UNITS RANGE LAB TP 6.3-8.0 g/dL Protein, Total 6.5 LAB ALB 3.9-4.9 g/dL Low Albumin 3.2 LAB CA 8.5-10.2 mg/dL Calcium, Total 8.8 LAB TBIL 0.2-1.3 mg/dL Bilirubin, Total 0.4 LAB ALKP 36-108 U/L Alkaline Phosphatase 47 LAB AST 14-40 U/L AST 17 LAB GLU 74-99 mg/dL Glucose High 105 Result Comment: The [place] [employer] Association (ADA) provides guidance for cutoff values for fasting glucose and random glucose. The ADA defines fasting as no caloric intake for at least 8 hours. Fas ting plasma glucose results between 100 to 125 mg/dL indicate increased risk for diabetes (prediabetes). Fasting plasma glucose results greater than or equal to 126 mg/dL meet the criteria for diagnosis of diabetes. In the absence of unequivocal hyperglycemia, results should be confirmed by repeat testing. In a patient with classic symptoms of hyperglycemia or hyperglycemic crisis, random plasma glucose results greater than or equal to 200 mg/dL meet the criteria for diagnosis of diabetes. Reference: Standards of Medical Care in Diabetes 2016, [place] [employer] Association. Diabetes Care. 2016.39(Suppl 1). LAB BUN 9-24 mg/dL BUN 15 LAB CRET 0.73-1.22 mg/dL Creatinine 0.94 LAB NA 136-144 mmol/L Sodium 137 LAB K 3.7-5.1 mmol/L Potassium 4.8 LAB CL 97-105 mmol/L Chloride 98 LAB CO2 22-30 mmol/L CO2 29 LAB AGAP 9-18 mmol/L Anion Gap 10 LAB ALT 10-54 U/L ALT 23 LAB GFRAA eGFR- Amer. >60 LAB GFRNAA . eGFR-All Other Races >60 Result Comment: eGFR (Estimated GFR) Units of measure: mL/min/1.73 meters squared eGFR is derived from the reexpressed MDRD Study equation using the following parameters: serum creatinine, age, gender and race. The creatinine assay has been calibrated to be traceable to IDMS. An eGFR <60 mL/min/1.73m2 for >3 months is consistent with chronic kidney disease. Refer to KDOQI guidelines for clinical interpretation. In patients with unstable renal function, e.g. those with acute kidney injury, the eGFR may not accurately reflect actual GFR. Performed By: #### CBC, CMP #### [facility] [address] [place] [address] XR ABDOMEN 1V SUPINE Observed: 04/16/2018 Status: F Source: [place] 12:41 PM [facility] REPOSITORY * * *Final Report* * * DATE OF EXAM: Apr 16 2018 12:41PM REJI [id number] - XR ABDOMEN 1V SUPINE / PROCEDURE REASON: Abd swelling, ascites suspected * * * * Physician Interpretation * * * * PORTABLE SUPINE ABDOMINAL FILM: 04/16/2018 12:41 PM CLINICAL HISTORY: Abd swelling, ascites suspected COMPARISON: 04/15/2018 TECHNIQUE: Supine abdomen, (1 view), 1 image RESULT: See impression. IMPRESSION: PARTS OF BOTH FLANKS AND THE EXTREME UPPER ABDOMEN ARE EXCLUDED. AIR CONTAINING LOOPS OF NORMAL CALIBER LARGE AND SMALL BOWEL ARE SEEN. NO AIR-FILLED DILATED LOOPS OF BOWEL. LEFT CHEST TUBE AND MEDIASTINAL DRAIN OVERLIE THE ABDOMEN. Animal Technician: [email or web address] Transcribe Date/Time: Apr 16 2018 9:12P Dictated by : FROYLAN ABREU MD This examination was interpreted and the report reviewed and electronically signed by: FROYLAN ABREU MD on Apr 16 2018 9:13PM EST [id number] PROGRESS Observed: 04/16/2018 Status: COMPLETED Source: [place] 12:02 PM [facility] REPOSITORY HNO ID: [id number] Author: Ana Pedroza (Fel) Service: Cardiac Surgery Author Type: Fellow Type: Progress Notes Filed: 04/16/2018 12:28 PM Note Text: George D 58M, 04/12 CABG X3 Passed stool yesterday ? had a large bowel movement and is comfortable today HR 80-90sinus, BP 110-130s/80-90s, on RA, Afebrile, +0.5kg Gen - NAD CV - RRR Pulm - No resp distress Ex - edema ++ Urine output 1100ml, Net balance -715ml Drains - Left Pleural 330 ml , Sonido 80ml 04/15 WC 14.6 (from 15.5), HH 8.404/16 Na 138 K 4.2 Creat 0.96 CXR ? reviewed Fresh Abd XR sought Meds ? Lasix 20mg OD, Metop 12.5mg BID, Vancomycin 125mg oral 6-hrly Plan: - Diuresis - Ambulation Ana Pedroza Clinical Fellow CONSULT PROG Observed: 04/16/2018 Status: COMPLETED Source: [place] 11:34 AM [facility] REPOSITORY HNO ID: [id number] Author: Marcin (Living Coach) Altheimer Service: Endocrinology Author Type: Nurse Practitioner Type: Consult Progress Note Filed: 04/16/2018 7:40 PM Note Text: DIABETES CARE TEAM NOTE SERVICE DATE: 04/16/2018 SERVICE TIME: 8:51 AM Subjective Summary of History from Prior Record: Consult Date: 04/13/18 ? Subjective ? HPI: Mr. Rick George Jr. is a 58 year old male with a 213 year history of Diabetes Mellitus Type 2 hyperglycemia (diagnosed 2004)who was admitted on 04/03/2018 transferred from OSH w/ NSTEMI. C diff positive at OSH. Now s/p CABG x 3 on 04/12/2018 Past medical history significant for HTN, CAD, CVA, PAD, PVD, and NSTEMI. Patient does Exercise. 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 Last HbA1c was 5.7%on 04/04/2018. He has a family history of diabetes in his mother, father, grandparents from both sides. He is followed by PCP for his diabetes at [place] Dr. Escalante. ? DIABETIC COMPLICATIONS: Retinopathy: Unspecified Neuropathy but relate that to stroke not DM/CVA in 2012 Cataracts ? Pre-Admission DM Regimen: Preadmission oral agents: None Preadmission insulin regimen: Lantus 20 units Q HS Humalog 12-20 units AC and Sliding scale ( I check my BG 2 hours after meal intake and use scale if gluocse is high). ? Self Monitoring Blood Glucose: Type of Monitor: Freestyle Frequency of Monitoring: Three times a Day BG Values: 150-160 post meals at times in 200mg/dL Hypoglycemia: No but per primary note at times low 60 mg/dL INTERVAL HPI: No acute events PERTINENT ROS:per staff as p[t sleeping Constitutional:Feels well, no complaints Appetite:Fair GI:No nausea, no vomitting, no diarrhea, no constipation Objective PHYSICAL EXAM: BP 113/67 Pulse 89 Temp 37.1 ?C (98.8 ?F) (Oral) Resp 18 Ht 177.8 cm (5' 10) Wt 90.9 kg (200 lb 4.8 oz) SpO2 96% BMI 28.74 kg/m? General Appearance: Appears In no apparent distress Affect:Sleeping soundly Eyes: closed Respirations: RRR Laboratory Results: Glucose (mg/dL) Date Value 04/16/2018 88 Potassium (mmol/L) Date Value 04/16/2018 4.2 Sodium (mmol/L) Date Value 04/16/2018 138 Chloride (mmol/L) Date Value 04/16/2018 98 CO2 (mmol/L) Date Value 04/16/2018 28 Creatinine (mg/dL) Date Value 04/16/2018 0.96 BUN (mg/dL) Date Value 04/16/2018 17 Anion Gap (mmol/L) Date Value 04/16/2018 12 Calcium (mg/dL) Date Value 04/16/2018 8.9 ALT Date Value Ref Range Status 04/16/2018 22 10 - 54 U/L Final AST Date Value Ref Range Status 04/16/2018 21 14 - 40 U/L Final Hemoglobin (g/dL) Date Value 04/16/2018 8.0 Hematocrit (%) Date Value 04/16/2018 25.1 WBC (k/uL) Date Value 04/16/2018 12.36 Platelet Count (k/uL) Date Value 04/16/2018 288 Hemoglobin A1C (%) Date Value 04/04/2018 5.7 LV Ejection Fraction (%) Date Value 04/04/2018 57 ?Diet: Heart healthy Diabetes Management in [facility] BG values or ranges: ? Date AM LUNCH DINNER HS 3AM 04/12/2018 141 Lantus 5u 120 214-227 191 222-191 04/13/2018 149-186 RHI gtt 5.4-2.2 163-130 Lantus 30 u ? 136-147 120? ? 04/14/18? ?148(h5) 144?(h5) 125 (h5)Lantus 30u 113? ? ?04/15 94 (h5)? ?130(h5) 202(h9)? 205(h4)? ? 04/16 156(h7) 221(h11) 151(h9) ? ? ? Impression/Recommendations Patient with uncontrolled Diabetes Mellitus Type 2 hyperglycemia s/p CABG x 3 on 04/12/2018 whom we have been consulted for glycemic control. BG trending up as appetite improves -New MDI as noted below Weight 88.5 kg ? ? 11:37 AM new B prandials in place for tomorrow RECOMMENDATIONS: ? Basal Insulin: Lantus 30 units q pm ? Increase Prandial Insulin: Humalog units AC TID ? Supplemental Sliding Scale: Humalog Program #2 AC AND HS ? Accuchecks: AC/HS ? Recommend Heart Healthy Diet and CHO Controlled Diet ? Consult CDE regarding: DM Education including none COMPUTER FORENSICS EXAMINER to review MDI ? DM DISCHARGE PLAN: ? MDI insulin of Lantus and Humalog. ? Check blood sugars Three times a Day ? Diet: Heart Healthy Diet and CHO Controlled Diet ? Exercise as prescribed by cardiology ? Follow up with housekeeping/laundry and supervisor fiber locking as recommended. ? Patient will need follow-up with his home hay baler/PCP in 1-2 weeks after discharge. ? Diabetes Care Team Hospital Discharge Help Line: [phone] ? ? Marcin Wilder [facility] Endocrine and Metabolism [place] Pager [phone] ; Covering DCT/Endo service today until 6 PM Please see On-Call Directory on Home Page for coverage after 6 PM PROGRESS Observed: 04/16/2018 Status: COMPLETED Source: [place] 8:45 AM [facility] REPOSITORY O ID: [id number] Author: Lizandro Li Rt Service: (none) Author Type: (none) Type: Progress Notes Filed: 04/16/2018 8:45 AM Note Text: Radiology Service Progress Note PATIENT NAME: Rick George Jr. DATE OF SERVICE: April 16, 2018 TIME: 8:45 AM PATIENT IDENTITY VERIFICATION COMPLETED USING TWO (2) METHODS: Patient confirmed name verbally and ID band matches.. PATIENT GENDER DATA: Male PATIENT RELEVANT IMPLANT DATA REVIEWED: Yes RADIOLOGY DEPARTMENT: General X-ray: Exam(s) Completed: Chest X-Ray PERIPHERAL IV DATA: Not applicable SIGNED BY: Lizandro Li Rt April 16, 2018 8:45 AM XR CHEST 2V FRONTAL/LAT Observed: 04/16/2018 Status: F Source: [place] 8:43 AM [facility] REPOSITORY * * *Final Report* * * DATE OF EXAM: Apr 16 2018 8:43AM [id number] - XR CHEST 2V FRONTAL/LAT / PROCEDURE REASON: Pneumothorax * * * * Physician Interpretation * * * * EXAMINATION: CHEST RADIOGRAPH (2 VIEW FRONTAL and LATERAL) Clinical History: Pneumothorax MQ: XC2_5 Comparison: 04/15/2018 RESULT: Lines, tubes, and devices: Patient is status post median sternotomy. A left-sided chest tube and mediastinal drain remains in place. Few retained epicardial pacer leads are present. Lungs and pleura: Interval decrease in size of a small left apical pneumothorax, minute on the current exam. A minute right apical pneumothorax is present. There are heterogeneous opacities in the lower lung zones, right worse than left. Findings may be secondary to atelectasis or aspiration. Cardiomediastinal silhouette: The cardiomediastinal silhouette is mildly enlarged. Minimal postoperative retrosternal gas is noted There are atherosclerotic calcifications in the aortic arch. Other: Endplate degenerative changes are present in the thoracic spine. IMPRESSION: Please see body of the report. Animal Technician: KAYE Transcribe Date/Time: Apr 16 2018 9:20A Dictated by : SUNITA SOLORZANO MD This examination was interpreted and the report reviewed and electronically signed by: SUNITA SOOLRZANO MD on Apr 16 2018 9:22AM EST [id number] COMP METABOLIC PANEL Collected: 04/16/2018 Status: F Source: [place] 6:15 AM [facility] REPOSITORY TYPE CODE TESTS RESULT OUT OF REFERENCE UNITS RANGE LAB TP 6.3-8.0 g/dL Low Protein, Total 6.2 LAB ALB 3.9-4.9 g/dL Low Albumin 3.0 LAB CA 8.5-10.2 mg/dL Calcium, Total 8.9 LAB TBIL 0.2-1.3 mg/dL Bilirubin, Total 0.4 LAB ALKP 36-108 U/L Alkaline Phosphatase 47 LAB AST 14-40 U/L AST 21 LAB GLU 74-99 mg/dL Glucose 88 Result Comment: The [place] [employer] (ADA) provides guidance for cutoff values for fasting glucose and random glucose. The ADA defines fasting as no caloric intake for at least 8 hours. Fas ting plasma glucose results between 100 to 125 mg/dL indicate increased risk for diabetes (prediabetes). Fasting plasma glucose results greater than or equal to 126 mg/dL meet the criteria for diagnosis of diabetes. In the absence of unequivocal hyperglycemia, results should be confirmed by repeat testing. In a patient with classic symptoms of hyperglycemia or hyperglycemic crisis, random plasma glucose results greater than or equal to 200 mg/dL meet the criteria for diagnosis of diabetes. Reference: Standards of Medical Care in Diabetes 2016, [place] [employer]. Diabetes Care. 2016.39(Suppl 1). LAB BUN 9-24 mg/dL BUN 17 LAB CRET 0.73-1.22 mg/dL Creatinine 0.96 LAB NA 136-144 mmol/L Sodium 138 LAB K 3.7-5.1 mmol/L Potassium 4.2 LAB CL 97-105 mmol/L Chloride 98 LAB CO2 22-30 mmol/L CO2 28 LAB AGAP 9-18 mmol/L Anion Gap 12 LAB ALT 10-54 U/L ALT 22 LAB GFRAA eGFR- Amer. >60 LAB GFRNAA . eGFR-All Other Races >60 Result Comment: eGFR (Estimated GFR) Units of measure: mL/min/1.73 meters squared eGFR is derived from the reexpressed MDRD Study equation using the following parameters: serum creatinine, age, gender and race. The creatinine assay has been calibrated to be traceable to IDMS. An eGFR <60 mL/min/1.73m2 for >3 months is consistent with chronic kidney disease. Refer to KDOQI guidelines for clinical interpretation. In patients with unstable renal function, e.g. those with acute kidney injury, the eGFR may not accurately reflect actual GFR. Performed By: #### CMP, CBC #### [facility] [address] [place], [place] [address] CBC Collected: 04/16/2018 Status: F Source: [place] 6:15 AM [facility] REPOSITORY TYPE CODE TESTS RESULT OUT OF REFERENCE UNITS RANGE LAB WBC 3.70-11.00 k/uL WBC High 12.36 LAB RBC 4.20-6.00 m/uL Low RBC 2.54 LAB HGB 13.0-17.0 g/dL Low Hemoglobin 8.0 LAB HCT 39.0-51.0 % Low Hematocrit 25.1 LAB MCV 80.0-100.0 fL MCV 98.8 LAB MCH 26.0-34.0 pG MCH 31.5 LAB MCHC 30.5-36.0 g/dL MCHC 31.9 LAB RDWCV 11.5-15.0 % RDW-CV 13.9 LAB PLTCT 150-400 k/uL Platelet Count 288 LAB MPV 9.0-12.7 fL MPV 11.1 LAB ABSNUC <0.01 k/uL Absolute nRBC <0.01 Performed By: #### CMP, CBC #### [facility] [address] [place], [place] [address] NURSING PROG Observed: 04/15/2018 Status: COMPLETED Source: [place] 6:40 PM [facility] REPOSITORY HNO ID: [id number] Author: Terri (Rn) LIN Polanco Service: Nursing Author Type: Registered Nurse Type: Nursing Progress Note Filed: 04/15/2018 7:18 PM Note Text: Nursing Progress Note Patient Name: Rick George Jr. Patient Location: [id number] Pt voided once since bonner removal today (unsaved) with bowel movement around 1500. Notified distribution tech Dee Duke MD with bladder scan results of >380 ml. No orders for bonner placement at this time. This note was completed by: Terri Polanco RN XR ABDOMEN 1V SUPINE Observed: 04/15/2018 Status: F Source: [place] 2:55 PM [facility] REPOSITORY * * *Final Report* * * DATE OF EXAM: Apr 15 2018 2:55PM [id number] [id number] - XR ABDOMEN 1V SUPINE / PROCEDURE REASON: Nausea, vomiting * * * * Physician Interpretation * * * * ABDOMINAL X-RAY, 1 VIEW. CLINICAL INFORMATION: Nausea, vomiting. CURRENT STUDY: 04/15/2018 2:55 PM COMPARISON: Plain films 04/04/2018. TECHNIQUE: Supine abdomen, 2 image(s) RESULT: See impression. IMPRESSION: Mediastinal and thoracostomy tubes partially seen. Gas within nondilated large and small bowel. Minimal gaseous distention of the stomach. Mild, multilevel thoracolumbar spine degenerative arthropathy. Animal Technician: PSCB Transcribe Date/Time: Apr 15 2018 6:24P Dictated by : SHIV PETERSON DO This examination was interpreted and the report reviewed and electronically signed by: SHIV PETERSON DO on Apr 15 2018 6:25PM EST [id number] PROGRESS Observed: 04/15/2018 Status: COMPLETED Source: [place] 12:48 PM [facility] REPOSITORY HNO ID: [id number] Author: Jessica Garcia) JUDE Nogueira.AD Service: Cardiac Surgery Author Type: Nurse Practitioner Type: Progress Notes Filed: 04/15/2018 12:58 PM Note Text: [facility] POSTOP PROGRESS NOTE Day of Surgery:04/12/2018 S/P SURGERY: CABGx3 MACK to LAD, SVG to PD of CX, SVG to OM INTERVAL EVENTS / PERTINENT ROS: POD #3 -Doing well but is feeling a little tried and had some nausea. -Nausea: Continue BM regimen. -CABG: Continue ASA and BB. Starting Crestor 10 mg QOD (History of elevated LFTs with Lipitor) -Small bilateral pneumothoraces: Left greater than right. Continue with Left PL and discontinue Medistinal. Repeat CXR in AM. Rhythm: Sinus rhythm Intake/Output Summary (Last 24 hours) at 04/15/18 1249 Last data filed at 04/15/18 0900 Gross per 24 hour Intake 180 ml Output 1860 ml Net -1680 ml EKG: most recent image reviewed, most recent report reviewed TELE: most recent recordings reviewed CXR: most recent image reviewed, most recent report reviewed Echocardiogram: most recent report reviewed PHYSICAL EXAM: BP 89/57 Pulse 86 Temp 37.2 ?C (98.9 ?F) (Oral) Resp 18 Ht 177.8 cm (5' 10) Wt 90.2 kg (198 lb 14.4 oz) SpO2 93% BMI 28.54 kg/m? Neuro: AANDO x 3 moves all extremities with no apparent weakness CV: no jugular venous distention Heart Exam: RRR without murmur, gallop, or rubs. No ectopy., temporary pacer wires intact Resp: diminished breath sounds Abd: The abdomen is soft, nontender, nondistended; BS normal; no masses or organomegaly noted. Skin: Skin color, texture, turgor normal, no suspicious rashes or lesions Ext: Trace edema Surgical incisions: clean, dry and intact Chest tube: Yes: left Pleural (130cc with small apical pneumo) Pacer wires: Yes, Ventricular (intact and grounded) HISTORY, ASSESSMENT AND PLAN: Problem Transition of Care Performed With Sharing of Clinical Summary Indication for Surgery: Coronary Artery Disease LVEF: 57% RVF: Normal CARDS: Li Mcguire EKG: Sinus rhythm Important/Relevant PMH/PSH: CAD, NSTEMI, HTN, HLD, PAD/PVD, CVA (unknown residual) DM2. Preoperative Hospital Course (narrative):Pt presented to [facility] on 04/01/18 w a 7d hx of increasing cough and SOB, CP wo radiation, and diarrhea. Transferred from OSH w/ NSTEMI. C. Diff positive at OSH, continue PO vanco. Procedure/Surgeries: 04/12/2018 CABGx3, MACK to LAD , SVG to PD pf CX , SVG to OM Airway Difficulty: Grade I - No special instrumentation OR Course: Uncomplicated Pacing wires: Yes: Ventricular: When discontinuing pacing wires: Pull all pacing wires Postoperative Course/General Impression: (narrative or log of major events with date of onset): Arrived to unit intubated and sedated. Cardiac insufficiency coming off CPB requiring epinephrine infusion, now off. Hypertensive on arrival to unit, NTG infusion started to maintain MAPs 65-75. Currently on levophed, wean as able. IVF resuscitation as needed. Pain AND glucose control. Extubated dos. Weaned from pressors pod#1. Issues to communicate at signout: -rhythm: Sinus, POD # 3 -CABG x3: Continue ASA and BB. Will start Crestor 10mg PO QOD and monitor LFTs. Patient stated he has only tired Lipitor which caused increased LFTs. -DM: endocrine following. -C-diff: ID following, continue oral vanco. -Nausea: Continue BM regimen. -Small biapical pneumothoraces : left greater than right. Will d/c mediastinal sonido and keep Left PL. Repeat CXR in AM. -Lives in [place], [place] with spouse. Consult to PT for anticipated needs. No anticipated discharge date. Discharge Planning: Anticipated Discharge Date: Unknown Unknown- Still with Left PL. Care Management Discharge Needs: Needs Prior to Discharge: To Be Determined Coronary Artery Disease Involving [place] Coronary Artery of [place] Heart With Unstable Angina Pectoris (Hcc) History: Recent NSTEMI Assessment: 04/12/2018 s/p CABGx3, MACK to LAD , SVG to PD pf CX , SVG to OM Plan: CAD Core Measures: Aspirin: Yes Beta blockers: Yes Statins: will start Crestor 10 mg QOD, due to history of elevated LFT's Bilateral Pneumothoraces History: Developed post-op Assessment: recent CXR shows, Small biapical pneumothoraces are present, left greater than right. Plan: will discontinue the mediastinal sonido and continue with the left PL. Repeat CXR in AM Atelectasis History: Post op atelectasis Assessment: Recent CXR shows, A trace left pleural effusion is present. There are heterogeneous opacities in the lung bases, likely atelectasis with pulmonary venous congestion. On RA Plan: encourage pep use, OOB to chair, ambulation, encourage cough AND deep breathing. Optimize pain control. Nstemi (Non-St Elevated Myocardial Infarction) ([facility]) 04/12/2018 s/p CABGx3, MACK to LAD , SVG to PD pf CX , SVG to OM Depression Home regimen Nortriptyline A/P: Resumed home dose pod#1 Post-Operative Pain History: Developed postoperatively Assessment: Pain well managed with current pain medication regimen. Plan: Discontinue IV ASPHALT ENGINEER, Continue scheduled daily Lidoderm patches and PRN Tylenol and Oxycodone. Pain goal < 4 Lower Back Pain History: Home regimen: Neurontin and zanaflex preoperatively. Assessment: adequate pain mangement Plan: Cotninue Lidoderm patches, Neurotin, HS Pamelor, and Nanette. DM (Diabetes Mellitus), Type 2 With Neurological Complications ([facility]) History: HgA1C 5.7. Home regimen: humalog insulin Assessment: Current BG range 94-134 Plan: Endo following. RECOMMENDATIONS: ? ??Basal Insulin: Lantus 30?units q pm ? ?Prandial Insulin: Humalog 5?units AC TID ? ??Supplemental Sliding Scale: Humalog Program #2 AC AND HS ? ?Accuchecks: AC/HS ? ?Recommend Heart Healthy Diet and CHO Controlled Diet ? ?Consult CDE regarding: DM Education including none COMPUTER FORENSICS EXAMINER to review MDI Hyperlipidemia History: Recent Lipid panel : TChol 92, HDL 24, LDL 56 Assessment: LFTs - WNL Plan: Goal LDL < 70. Will start Crestor 10 mg QOD. Monitor LFTs. Follow up for FLP and LFTs in 6-8 weeks with PCP/Cards C. Difficile Colitis History: C. Diff positive at OSH. Assessment: Stable Plan: ID following, continue PO vancomycin. Discharge Planning Issues -Lives in [place], [place] with spouse. Consult to PT for anticipated needs. No anticipated discharge date. DAILY STEP DOWN CHECKLIST FOR CATHETER RELATED INFECTION PREVENTION CVC, PICC, Josh and/or Permacath present? No Does the patient have a urinary catheter beyond POD 2? No VTE Risk Assessment: High risk VTE Mechanical and/or Pharmacologic Prophylaxis: GCS, Subcutaneous Heparin and SCD Labs and medications reviewed in Epic Case discussed in depth with: Dr. Pedroza SIGNATURE: Jessica Nogueira CNP PATIENT NAME: Rick George Jr. DATE: April 15, 2018 TIME: 12:49 PM PAGER/CONTACT #: [phone] ETX#[id number] PROGRESS Observed: 04/15/2018 Status: COMPLETED Source: [place] 9:32 AM [facility] REPOSITORY [facility] ID: [id number] Author: Suzette Orozco (Rt) Service: Radiology Author Type: Precision Dyer Type: Progress Notes Filed: 04/15/2018 9:32 AM Note Text: Radiology Service Progress Note PATIENT NAME: Rick George Jr. DATE OF SERVICE: April 15, 2018 TIME: 9:32 AM PATIENT IDENTITY VERIFICATION COMPLETED USING TWO (2) METHODS: Patient confirmed name verbally and ID band matches.. PATIENT GENDER DATA: Male PATIENT RELEVANT IMPLANT DATA REVIEWED: Yes RADIOLOGY DEPARTMENT: General X-ray: Exam(s) Completed: Chest X-Ray PERIPHERAL IV DATA: Not applicable SIGNED BY: Estefany Medina RT April 15, 2018 9:32 AM XR CHEST 2V FRONTAL/LAT Observed: 04/15/2018 Status: F Source: [place] 9:18 AM [facility] REPOSITORY * * *Final Report* * * DATE OF EXAM: Apr 15 2018 9:18AM REJI [id number] - XR CHEST 2V FRONTAL/LAT / PROCEDURE REASON: Atelectasis * * * * Physician Interpretation * * * * EXAMINATION: CHEST RADIOGRAPH (2 VIEW FRONTAL and LATERAL) Clinical History: Atelectasis MQ: XC2_5 Comparison: 04/14/2018 RESULT: Lines, tubes, and devices: Patient is status post median sternotomy. Interval removal of right IJ central venous catheter. A left- sided chest tube and mediastinal drain remains in place. Few retained epicardial pacer leads are present. Lungs and pleura: Small biapical pneumothoraces are present, left greater than right. A trace left pleural effusion is present. There are heterogeneous opacities in the lung bases, likely atelectasis with pulmonary venous congestion. Cardiomediastinal silhouette: The cardiomediastinal silhouette is mildly enlarged. Minimal postoperative retrosternal gas is noted Other: Endplate degenerative changes are present in the thoracic spine. IMPRESSION: Please see body of the report. Animal Technician: PSCB Transcribe Date/Time: Apr 15 2018 10:22A Dictated by : SUNITA SOLORZANO MD This examination was interpreted and the report reviewed and electronically signed by: SUNITA SOLORZANO MD on Apr 15 2018 10:23AM EST [id number] CONSULT PROG Observed: 04/15/2018 Status: COMPLETED Source: [place] 6:11 AM [facility] REPOSITORY HNO ID: [id number] Author: Marcin Wilder Service: Endocrinology Author Type: Nurse Practitioner Type: Consult Progress Note Filed: 04/15/2018 12:05 PM Note Text: DIABETES CARE TEAM NOTE SERVICE DATE: 04/15/2018 SERVICE TIME: 8:51 AM Subjective Summary of History from Prior Record: Consult Date: 04/13/18 ? Subjective ? HPI: Mr. Rick George Jr. is a 58 year old male with a 213 year history of Diabetes Mellitus Type 2 hyperglycemia (diagnosed 2004)who was admitted on 04/03/2018 transferred from OSH w/ NSTEMI. C diff positive at OSH. Now s/p CABG x 3 on 04/12/2018 Past medical history significant for HTN, CAD, CVA, PAD, PVD, and NSTEMI. Patient does Exercise. 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 Last HbA1c was 5.7%on 04/04/2018. He has a family history of diabetes in his mother, father, grandparents from both sides. He is followed by PCP for his diabetes at [place] Dr. [place]. ? DIABETIC COMPLICATIONS: Retinopathy: Unspecified Neuropathy but relate that to stroke not DM/CVA in 2012 Cataracts ? Pre-Admission DM Regimen: Preadmission oral agents: None Preadmission insulin regimen: Lantus 20 units Q HS Humalog 12-20 units AC and Sliding scale ( I check my BG 2 hours after meal intake and use scale if gluocse is high). ? Self Monitoring Blood Glucose: Type of Monitor: TM3 Softwarestyle Frequency of Monitoring: Three times a Day BG Values: 150-160 post meals at times in 200mg/dL Hypoglycemia: No but per primary note at times low 60 mg/dL INTERVAL HPI: No acute events - PERTINENT ROS: Constitutional:Feels well, no complaints Appetite:Fair GI:No nausea, no vomitting, no diarrhea, no constipation Objective PHYSICAL EXAM: BP 107/63 Pulse 96 Temp 36.8 ?C (98.3 ?F) (Oral) Resp 18 Ht 177.8 cm (5' 10) Wt 90.9 kg (200 lb 8 oz) SpO2 95% BMI 28.77 kg/m? General Appearance: Appears In no apparent distress Affect:Pleasant /cooperative Eyes: Sclerae non-icteric Respirations: RRR Abdomen: soft NT Laboratory Results: Glucose (mg/dL) Date Value 04/15/2018 92 Potassium (mmol/L) Date Value 04/15/2018 4.2 Sodium (mmol/L) Date Value 04/15/2018 138 Chloride (mmol/L) Date Value 04/15/2018 99 CO2 (mmol/L) Date Value 04/15/2018 25 Creatinine (mg/dL) Date Value 04/15/2018 1.02 BUN (mg/dL) Date Value 04/15/2018 15 Anion Gap (mmol/L) Date Value 04/15/2018 14 Calcium (mg/dL) Date Value 04/15/2018 8.9 ALT Date Value Ref Range Status 04/15/2018 26 10 - 54 U/L Final AST Date Value Ref Range Status 04/15/2018 20 14 - 40 U/L Final Hemoglobin (g/dL) Date Value 04/15/2018 8.4 Hematocrit (%) Date Value 04/15/2018 26.8 WBC (k/uL) Date Value 04/15/2018 14.61 Platelet Count (k/uL) Date Value 04/15/2018 220 Hemoglobin A1C (%) Date Value 04/04/2018 5.7 LV Ejection Fraction (%) Date Value 04/04/2018 57 ?Diet: Heart healthy Diabetes Management in Hospital Hospital BG values or ranges: ? Date AM LUNCH DINNER HS 3AM 04/12/2018 141 Lantus 5u 120 214-227 191 222-191 04/13/2018 149-186 RHI gtt 5.4-2.2 163-130 Lantus 30 u ? 136-147 120? ? 04/14/18? ?148(h5) 144?(h5) 125 (h5)Lantus 30u 113? ? ?04/15 94 (h5)? ?130(h5) ? Impression/Recommendations Patient with uncontrolled Diabetes Mellitus Type 2 hyperglycemia s/p CABG x 3 on 04/12/2018 whom we have been consulted for glycemic control. BG stable on below MDI- no changes for now Weight 88.5 kg ? ? RECOMMENDATIONS: ? Basal Insulin: Lantus 30 units q pm ? Prandial Insulin: Humalog 5 units AC TID ? Supplemental Sliding Scale: Humalog Program #2 AC AND HS ? Accuchecks: AC/HS ? Recommend Heart Healthy Diet and CHO Controlled Diet ? Consult CDE regarding: DM Education including none COMPUTER FORENSICS EXAMINER to review MDI ? DM DISCHARGE PLAN: ? MDI insulin of Lantus and Humalog. ? Check blood sugars Three times a Day ? Diet: Heart Healthy Diet and CHO Controlled Diet ? Exercise as prescribed by cardiology ? Follow up with housekeeping/laundry and supervisor fiber locking as recommended. ? Patient will need follow-up with his home hay baler/PCP in 1-2 weeks after discharge. ? Diabetes Care Team Hospital Discharge Help Line: [phone] ? ? Marcin Wilder [facility] Endocrine [facility] Met[facility] [place] Pager [phone] ; Covering DCT/Endo service today until 6 PM Please see On-Call Directory on Home Page for coverage after 6 PM CBC Collected: 04/15/2018 Status: F Source: GER[place] 4:19 AM [facility] REPOSITORY TYPE CODE TESTS RESULT OUT OF REFERENCE UNITS RANGE LAB WBC 3.70-11.00 k/uL WBC High 14.61 LAB RBC 4.20-6.00 m/uL Low RBC 2.67 LAB HGB 13.0-17.0 g/dL Low Hemoglobin 8.4 LAB HCT 39.0-51.0 % Low Hematocrit 26.8 LAB MCV 80.0-100.0 fL MCV High 100.4 LAB MCH 26.0-34.0 pG MCH 31.5 LAB MCHC 30.5-36.0 g/dL MCHC 31.3 LAB RDWCV 11.5-15.0 % RDW-CV 14.2 LAB PLTCT 150-400 k/uL Platelet Count 220 LAB MPV 9.0-12.7 fL MPV 10.7 LAB ABSNUC <0.01 k/uL Absolute nRBC <0.01 Performed By: #### CBC, CMP #### [facility] [address] [place], [place] [address] COMP METABOLIC PANEL Collected: 04/15/2018 Status: F Source: GER[place] 4:19 AM [facility] REPOSITORY TYPE CODE TESTS RESULT OUT OF REFERENCE UNITS RANGE LAB TP 6.3-8.0 g/dL Low Protein, Total 6.2 LAB ALB 3.9-4.9 g/dL Low Albumin 3.3 LAB CA 8.5-10.2 mg/dL Calcium, Total 8.9 LAB TBIL 0.2-1.3 mg/dL Bilirubin, Total 0.6 LAB ALKP 36-108 U/L Alkaline Phosphatase 45 LAB AST 14-40 U/L AST 20 LAB GLU 74-99 mg/dL Glucose 92 Result Comment: The [place] [employer] (ADA) provides guidance for cutoff values for fasting glucose and random glucose. The ADA defines fasting as no caloric intake for at least 8 hours. Fas ting plasma glucose results between 100 to 125 mg/dL indicate increased risk for diabetes (prediabetes). Fasting plasma glucose results greater than or equal to 126 mg/dL meet the criteria for diagnosis of diabetes. In the absence of unequivocal hyperglycemia, results should be confirmed by repeat testing. In a patient with classic symptoms of hyperglycemia or hyperglycemic crisis, random plasma glucose results greater than or equal to 200 mg/dL meet the criteria for diagnosis of diabetes. Reference: Standards of Medical Care in Diabetes 2016, [place] [employer]. Diabetes Care. 2016.39(Suppl 1). LAB BUN 9-24 mg/dL BUN 15 LAB CRET 0.73-1.22 mg/dL Creatinine 1.02 LAB NA 136-144 mmol/L Sodium 138 LAB K 3.7-5.1 mmol/L Potassium 4.2 LAB CL 97-105 mmol/L Chloride 99 LAB CO2 22-30 mmol/L CO2 25 LAB AGAP 9-18 mmol/L Anion Gap 14 LAB ALT 10-54 U/L ALT 26 LAB GFRAA eGFR- Amer. >60 LAB GFRNAA . eGFR-All Other Races >60 Result Comment: eGFR (Estimated GFR) Units of measure: mL/min/1.73 meters squared eGFR is derived from the reexpressed MDRD Study equation using the following parameters: serum creatinine, age, gender and race. The creatinine assay has been calibrated to be traceable to IDMS. An eGFR <60 mL/min/1.73m2 for >3 months is consistent with chronic kidney disease. Refer to KDOQI guidelines for clinical interpretation. In patients with unstable renal function, e.g. those with acute kidney injury, the eGFR may not accurately reflect actual GFR. Performed By: #### CBC, CMP #### [facility] [address] [place] [id number] NURSING PROG Observed: 04/14/2018 Status: COMPLETED Source: GERALDINE 7:36 PM [facility] REPOSITORY HNO ID: [id number] Author: Hyun Montes De Oca RN Service: Nursing Author Type: Registered Nurse Type: Nursing Progress Note Filed: 04/14/2018 8:24 PM Note Text: Nursing Progress Note Patient Name: Rick George Jr. Patient Location: [address]03-18-02 Transfer Note: Patient transferred into room/unit J62-2 in stable condition. Actions taken: Pt oriented to the room, call light and J's policies and procedures. Pt informed that he is a falls risk post 24 hours admission from the ICU. Yellow socks, falls wristband on, and bed alarm applied.Call light within reach. Skin assessed with Georgina Jauregui RN. No skin breakdown noted aside from surgical incisions. See LDA flowsheet for further details. No futher actions taken at this time. Will continue to monitor and check with patient. This note was completed by: Hyun Montes De Oca RN NUTRITION Observed: 04/14/2018 Status: COMPLETED Source: GERALDINE 2:41 PM [facility] REPOSITORY HNO ID: [id number] Author: Jen Peterson (Diet-T) Rich Service: Nutrition Therapy Author Type: Block Making Machine Operator Type: Nutrition Filed: 04/14/2018 2:53 PM Note Text: NUTRITION THERAPY FOLLOW-UP NOTE SERVICE DATE: 04/14/2018 SERVICE TIME: 10:12am Anthropometrics: Height: 177.8 cm (5' 10) Current Weight: Weight: 92.4 kg (203 lb 11.3 oz) Body mass index is 29.23 kg/m?. Loss of lean body mass/visual muscle wasting: unable to assess Admitting Diagnosis: CAD (coronary artery disease) [I25.10] Present Diet Order: Heart Healthy 4 gm Na Is the patient having any pain that is interfering with oral/enteral intake? Yes LOCATION: Chest Allergies: ALLERGIES Allergen Reactions - Lipitor [Atorvastat* Contraindication-Medical Surgical Elevated LFTs and elevated CK level - Metformin Diarrhea Reason for Visit: Nutrient intake assessment: Current intake of meals: 0 - 100% Follow-up: Intervention from 04/07/2018 was not met Calorie Count of Meals from [facility]: 04/13/18 Nothing noted 04/12/18 NPO 04/11/18 Kcal~1232 Protein~40.12gm 04/10/18 Kcal~321 Protein~10.78gm 04/09/18 Kcal~543 Protein~16.40gm Patient concerns/Issues: Per patient he is not eating well due to pain and nausea. Denies any problems chewing or swallowing. Weight gain of 1# since admission. No significant change. Supplement of Boost VHC ordered three times a day due to patient not eating well and nutritional needs not met. Spoke with KATHRYN Holloway DTR to follow up in three days and if meal and supplement intake do not meet nutritional needs or improve refer patient to RD. Nursing Admission Assessment Malnutrition Score Tool: 0 Plan of Care: Recommendation Will screen again within 3-7 days Provide supplement of Boost VHC at lunch, dinner and bedtime snack daily Discharge Plan: Home on Diet per MD Order MNT Billing Type: Routine Care/15 min 2 units SIGNATURE: FANTA Knight-T PATIENT NAME: Rick George Jr. DATE: April 14, 2018 TIME: 2:41 PM PAGER: [phone] GASA + ALL Collected: 04/14/2018 Status: F Source: [place] FOR 11:39 AM [facility] USE ONLY REPOSITORY TYPE CODE TESTS RESULT OUT OF REFERENCE UNITS RANGE LAB PH 7.35-7.45 pH 7.44 LAB PCO2 34-46 mm Hg pCO2 40 LAB PO2 85-95 mm Hg pO2 117 High LAB BE mmol/L Base Excess 3 LAB HCO3 22-26 mmol/L Bicarbonate 27 High LAB CO2CT 22.0-28.0 mmol/L CO2 Content 28 LAB O2HB 95-98 % 96 Oxyhemoglobin, Art. LAB COHB 0-5.0 % 2.1 Carboxyhemoglobin ,Art LAB MHGB 0.4-1.5 % 1.1 Methemoglobin LAB TEMP C 37.0 Temperature, Body LAB PHTC 7.35-7.45 pH, Temp 7.44 Corrected LAB PCO2T 34-46 mm Hg pCO2, Temp 40 Correct LAB PO2T mm Hg pO2, Temp 117 Corrected LAB NAB 135-146 mmol/L 133 Low Sodium,Whole Bld LAB KWB 3.5-5.0 mmol/L Potassium, 4.2 Whole Bld LAB HGBB 13.0-17.0 g/dL 8.7 Low Hemoglobin,Total, ACL LAB HCTB 39.0-51.0 % Hematocrit, 27 Low ACL LAB IC 1.08-1.30 mmol/L Calcium, 1.20 Ion, WB LAB GLB 60-105 mg/dL 144 High Glucose,Whole Bld LAB LACT 0.5-2.2 mmol/L Lactate 0.8 LAB ABGCOM Blood Gas O2 Comm, Art Administration Result Comment: 1LNC LAB ACBDTE [id number] Notify Date, Art LAB ACBTME [id number] Notify Time, Art Performed By: #### ALLBG #### [facility] [address] [place], [place] [address] CONSULT PROG Observed: 04/14/2018 Status: COMPLETED Source: [place] 10:26 AM [facility] REPOSITORY HNO ID: [id number] Author: Marita Baptiste Service: Infectious Disease Author Type: Physician Type: Consult Progress Note Filed: 04/14/2018 5:45 PM Note Text: INFECTIOUS DISEASE CONSULT SERVICE PROGRESS NOTE Date: April 14, 2018 Patient Name: Rick Georeg Jr. Interval Events: Underwent CABG on 04/12/18 Awake sitting in chair Not having BM yet per patient Denies complaints MEDICATIONS Medications reviewed. Current hospital medications: haloperidol lactate 5 mg injection (HALDOL) 5 mg INTRAVENOUS ONCE gabapentin 900 mg cap(s) (NEURONTIN) 900 mg ORAL q 8 H cetirizine 10 mg tab(s) (ZyrTEC) 10 mg ORAL DAILY oxyCODONE IR 5-10 mg tab(s) (ROXICODONE) 5-10 mg ORAL/FEEDING TUBE q 4 H PRN furosemide 20 mg injection (LASIX) 20 mg INTRAVENOUS q 8 H lidocaine 5 % 1 Patch (LIDODERM) 1 Patch TRANSDERMAL DAILY lidocaine patch - REMOVE OTHER AT BEDTIME lidocaine - VERIFY PATCH OTHER q 8 H mupirocin 2% 0.5 g nasal ointment (BACTROBAN) 0.5 g NASAL BID nortriptyline 50 mg cap(s) (PAMELOR) 50 mg ORAL AT BEDTIME dextrose 40 % 15 g 15 g ORAL PRN glucagon 1 mg injection (GLUCAGEN) 1 mg INTRAMUSCULAR PRN dextrose 50% in water 25 mL syringe 12.5 g INTRAVENOUS PRN insulin lispro injection (rapid acting) (HumaLOG) SUBCUTANEOUS w MEALS AND HS insulin lispro 5 Units injection (rapid acting) (HumaLOG) 5 Units SUBCUTANEOUS DAILY WITH BREAKFAST insulin lispro 5 Units injection (rapid acting) (HumaLOG) 5 Units SUBCUTANEOUS DAILY wLUNCH insulin lispro 5 Units injection (rapid acting) (HumaLOG) 5 Units SUBCUTANEOUS DAILY wDINNER insulin glargine 30 Units pen (long acting) (LANTUS SOLOSTAR, BASAGLAR KWIKPEN) 30 Units SUBCUTANEOUS DAILY (5 PM) metoprolol tartrate (short acting) 12.5 mg tab(s) (LOPRESSOR) 12.5 mg ORAL q 12 H Chlorhexidine Gluconate 0.12 % 15 mL (PERIDEX) 15 mL ORAL q [address] 20 mg tab(s) (PROTONIX) 20 mg ORAL DAILY (6 AM) pantoprazole 20 mg CUP (PROTONIX) 20 mg ORAL/FEEDING TUBE DAILY (6 AM) senna-docusate 8.6-50 mg 1 tablet (SENNA-S) 1 tablet ORAL BID bisacodyl 10 mg suppository (DULCOLAX) 10 mg RECTAL DAILY PRN ondansetron (PF) 4 mg injection (ZOFRAN) 4 mg INTRAVENOUS q 6 H PRN potassium chloride iv piggyback 10 mEq/100mL 10 mEq INTRAVENOUS PRN potassium chloride iv piggyback 20 mEq/50 mL 20 mEq INTRAVENOUS PRN potassium chloride 40-120 mEq oral powder (KLOR-CON) 40-120 mEq ORAL/FEEDING TUBE PRN 0.9% NaCl 3-5 mL 3-5 mL INTRAVENOUS q 12 H 0.9% NaCl 10 mL 10 mL INTRAVENOUS q 12 H insulin regular human iv bolus 2-10 Units 2-10 Units INTRAVENOUS PRN dextrose 50% in water 25 mL syringe 12.5 g INTRAVENOUS PRN dextrose 5% in NaCl 0.2% iv infusion 5 mL/hr INTRAVENOUS CONTINUOUS nitroglycerin injection 100 mcg injection syringe 100 mcg INTRAVENOUS PRN PHENYLephrine 0.1 mg injection 100 mcg INTRAVENOUS PRN fentaNYL ASPHALT ENGINEER 20 mcg/mL in NaCl 0.9% 100 mL INTRAVENOUS CONTINUOUS naloxone 0.04 mg injection (NARCAN) 0.04 mg INTRAVENOUS PRN lidocaine 5 % 1 Patch (LIDODERM) 1 Patch TRANSDERMAL DAILY lidocaine patch - REMOVE OTHER AT BEDTIME lidocaine - VERIFY PATCH OTHER q 8 H fentaNYL 50 mcg/mL 25-75 mcg injection (SUBLIMAZE) 25-75 mcg INTRAVENOUS q 1 H PRN acetaminophen 1,000 mg tab(s) (TYLENOL) 1,000 mg ORAL q 6 H acetaminophen 1,000 mg CUP (TYLENOL) 1,000 mg NASOGASTRIC q 6 H [START ON 04/16/2018] acetaminophen 650 mg tab(s) (TYLENOL) 650 mg ORAL/FEEDING TUBE q 4 H PRN aspirin 162 mg chewable tab(s) 162 mg ORAL/FEEDING TUBE DAILY heparin 5,000 Units injection 5,000 Units SUBCUTANEOUS q 12 H vancomycin 125 mg oral liquid (VANCOCIN) 125 mg ORAL QID EXAMINATION: Vital signs: BP 98/60 Pulse 89 Temp 36.1 ?C (97 ?F) (Temporal Artery) Resp 21 Ht 177.8 cm (5' 10) Wt 92.4 kg (203 lb 11.3 oz) SpO2 98% BMI 29.23 kg/m? Temp (24hrs), Av.7 ?C (98.1 ?F), Min:36.5 ?C (97.7 ?F), Max:36.9 ?C (98.5 ?F) GENERAL APPEARANCE:alert, in no acute distress SKIN: negative HEAD/SINUSES: No significant findings. EYES: PERRLA, conjunctiva clear LUNGS: Clear to auscultation, No crackles. HEART: Regular rate and rhythm. Median sternotomy well approximated ABDOMEN: Soft, Non-tender, +distended, quiet bx EXTREMITIES: negative edema NEURO: Awake, alert , no involuntary motions. Exam unchanged from note dated 04/13/18 except where updated. LABORATORY DATA: WBC (k/uL) Date Value 04/14/2018 15.15 04/13/2018 15.13 04/12/2018 22.21 Hemoglobin (g/dL) Date Value 04/14/2018 8.4 04/13/2018 7.5 04/12/2018 8.5 Platelet Count (k/uL) Date Value 04/14/2018 207 04/13/2018 276 04/12/2018 335 Creatinine (mg/dL) Date Value 04/14/2018 0.95 04/13/2018 0.95 04/12/2018 1.03 MICROBIOLOGY DATA: reviewed IMAGING DATA: Films personally reviewed. ASSESSMENT/RECOMMENDATIONS: Recent treatment for staph abscess after stepping on nail. Treated with antibiotics and improved about 3 weeks ago no further symptoms Had recent episode of severe coughing after exposure to possibly moldy hay--now resolved ?hypersensitivity c diff--per patient had about 20 bms/day prior to calling PCP and treated with flagyl--stool became more solidified, decreased frequency on Tues Now having more solid stools ~ 1 daily ? Main concern in setting of c diff--frequent BMs in setting of surgery--this has improved. Small risk of worsening with perioperative antibiotcs, maintain oral vanco Foot infection--resolved ? Doing well post op, no diarrhea Continue PO vancomycin--will monitor determine final course once off systemic antibiotics and through immediate periop period Dr. Cadena will be available this weekend. Please call with questions. I will resume service on Tuesday. Marita Baptiste MD Staff physician Infectious Diseases Pager: [phone] Date and Time of Service: April 14, 2018 / PROGRESS Observed: 04/14/2018 Status: COMPLETED Source: [place] 9:22 AM [facility] REPOSITORY O ID: [id number] Author: Magaly Talbot (Eduardo) [facility] Service: Critical Care Author Type: Nurse Practitioner Type: Progress Notes Filed: 04/14/2018 9:37 AM Note Text: [facility] CV[facility] Note Name: Rick George Jr. Coordination of Care Note: Indication for Surgery: Coronary Artery Disease LVEF: 57% RVF: Normal Important/Relevant PMH/PSH: CAD, NSTEMI, HTN, HLD, PAD/PVD, CVA (unknown residual) DM2. Preoperative Hospital Course (narrative): Transferred from [facility] w/ NSTEMI. C. Diff positive at OSH, continue PO vanco. Procedure/Surgeries: 04/12/2018 CABGx3, MACK to LAD , SVG to PD pf CX , SVG to OM Airway Difficulty: Grade I - No special instrumentation OR Course: Uncomplicated Pacing wires: Yes: Ventricular: When discontinuing pacing wires: Pull all pacing wires Postoperative Course/General Impression: (narrative or log of major events with date of onset): Arrived to unit intubated and sedated. Cardiac insufficiency coming off CPB requiring epinephrine infusion, now off. Hypertensive on arrival to unit, NTG infusion started to maintain MAPs 65-75. Currently on levophed, wean as able. IVF resuscitation as needed. Pain AND glucose control. Extubated dos. Weaned from pressors pod#1. Issues to communicate at signout: - chronic pain: resume home med neurontin 900mg tid per patient, 2nd lidoderm patch to ribs (pain was present preop), increase frequency of oxycodone dosing and test dose of dilaudid given - C-Diff Discharge Planning: Anticipated Discharge Date: Unknown Unknown Care Management Discharge Needs: Needs Prior to Discharge: To Be Determined Other Problems I Reviewed and/or Managed During This Encounter: Problem Coronary Artery Disease Involving [place] Coronary Artery of [place] Heart With Unstable Angina Pectoris ([facility]) 04/12/2018 s/p CABGx3, MACK to LAD , SVG to PD pf CX , SVG to OM CAD Core Measures: Aspirin: Yes Beta blockers: Yes Statins: Reassess for Best Practices prior to hospital discharge Nicotine use disorder, F17.2 Encourage cessation Atelectasis A/P: Encourage OOB, PEP use and optimize pain control. Wean O2 as tolerated. Increase diuretics Nstemi (Non-St Elevated Myocardial Infarction) ([facility]) 04/12/2018 s/p CABGx3, MACK to LAD , SVG to PD pf CX , SVG to OM Pad (Peripheral Artery Disease) ([facility]) Depression Home regimen Nortriptyline A/P: Resumed home dose pod#1 Post-Operative Pain A/P On fentanyl ASPHALT ENGINEER, scheduled lidoderm patches and tylenol, prn oxycodone. with c/o continued pain. increase frequency of oxycodone dosing, test dose of dilaudid Lower Back Pain Home regimen: Neurontin and zanaflex preoperatively. A/P: C/o severe rib pain today, add a lidoderm patch to the area, resume home dose of neurontin (patient says it is 900mg tid), hs pamelor 50mg, increase frequency of oxycodone dosing, test dose of dilaudid DM (Diabetes Mellitus), Type 2 With Neurological Complications (Hcc) HgA1C 5.7. Home regimen: humalog insulin A/P: Insulin per endo reccs Hyperlipidemia A/P: Will start statin once extubated and taking PO. Stress Hyperglycemia HgA1C 5.7. Home regimen: humalog insulin A/P: Perioperative insulin resistance, SSI as needed per CVICU protocol for goal glycemic control <180. Endocrinology consulted PHYSICAL EXAM: Neuro: Follows commands, Alert and oriented x 3, GIBSON but seems a little off - unable to pin point the location of his chronic pain Cardiovascular: Rhythm: regular rate and rhythm Pulmonary: Clear to auscultation and Breath sounds equal Ventilator: N/A, patient is extubated CXR Findings: Atelectasis Bilateral, Increased Vascular Markings Bilateral and CXR personally viewed and interpreted by ICU staff Nurse Practitioner Gastrointestinal: Abdominal: Soft, Non-tender and Bowel sounds yes DAILY CVICU CHECKLIST VTE Prophylaxis: Pharmacologic Yes VTE Prophylaxis: Mechanical: Yes Line infection prevention: Can CVC, PAC or arterial line be removed: Yes - Remove arterial line and Remove Central venous catheter Continued need for urinary catheter: No - Remove urinary catheter Restraints needed: No SIGNATURE: Magaly Nowak APRN.CNP DATE of SERVICE: 04/14/2018 TIME of SERVICE: 9:23 AM GASA + ALL Collected: 04/14/2018 Status: F Source: [place] FOR 7:41 AM [facility] USE ONLY REPOSITORY TYPE CODE TESTS RESULT OUT OF REFERENCE UNITS RANGE LAB PH 7.35-7.45 pH 7.41 LAB PCO2 34-46 mm Hg pCO2 46 LAB PO2 85-95 mm Hg pO2 High 107 LAB BE mmol/L Base Excess 3 LAB HCO3 22-26 mmol/L Bicarbonate High 28 LAB CO2CT 22.0-28.0 mmol/L CO2 Content High 29 LAB O2HB 95-98 % Oxyhemoglobin, Art. 96 LAB COHB 0-5.0 % Carboxyhemoglobin,A 2.0 rt LAB MHGB 0.4-1.5 % Methemoglobin 0.7 LAB TEMP C Temperature, Body 37.0 LAB PHTC 7.35-7.45 pH, Temp Corrected 7.41 LAB PCO2T 34-46 mm Hg pCO2, Temp Correct 46 LAB PO2T mm Hg pO2, Temp Corrected 107 LAB NAB 135-146 mmol/L Sodium,Whole Bld Low 134 LAB KWB 3.5-5.0 mmol/L Potassium, Whole Bld 4.3 LAB HGBB 13.0-17.0 g/dL Low Hemoglobin,Total,AC 8.9 L LAB HCTB 39.0-51.0 % Hematocrit, ACL Low 28 LAB IC 1.08-1.30 mmol/L Calcium, Ion, WB 1.22 LAB GLB 60-105 mg/dL Glucose,Whole Bld High 148 LAB LACT 0.5-2.2 mmol/L Lactate 0.7 Performed By: #### ALLBG #### [facility] [address] [place], [place] [address] CONSULT PROG Observed: 04/14/2018 Status: COMPLETED Source: [place] 5:50 AM [facility] REPOSITORY HNO ID: [id number] Author: Marcin (Mira Wilder Service: Endocrinology Author Type: Nurse Practitioner Type: Consult Progress Note Filed: 04/14/2018 7:32 PM Note Text: DIABETES CARE TEAM NOTE SERVICE DATE: 04/14/2018 SERVICE TIME: 5:51 AM Subjective Summary of History from Prior Record: Consult Date: 04/13/18 ? Subjective ? HPI: Mr. Rick George Jr. is a 58 year old male with a 213 year history of Diabetes Mellitus Type 2 hyperglycemia (diagnosed 2004)who was admitted on 04/03/2018 transferred from OSH w/ NSTEMI. C diff positive at OSH. Now s/p CABG x 3 on 04/12/2018 Past medical history significant for HTN, CAD, CVA, PAD, PVD, and NSTEMI. Patient does Exercise. 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 Last HbA1c was 5.7%on 04/04/2018. He has a family history of diabetes in his mother, father, grandparents from both sides. He is followed by PCP for his diabetes at [facility]. ? DIABETIC COMPLICATIONS: Retinopathy: Unspecified Neuropathy but relate that to stroke not DM/CVA in 2012 Cataracts ? Pre-Admission DM Regimen: Preadmission oral agents: None Preadmission insulin regimen: Lantus 20 units Q HS Humalog 12-20 units AC and Sliding scale ( I check my BG 2 hours after meal intake and use scale if gluocse is high). ? Self Monitoring Blood Glucose: Type of Monitor: Freestyle Frequency of Monitoring: Three times a Day BG Values: 150-160 post meals at times in 200mg/dL Hypoglycemia: No but per primary note at times low 60 mg/dL INTERVAL HPI: No acute events -remains in ICU PERTINENT ROS: Constitutional:Feels well, no complaints Appetite:Fair GI:No nausea, no vomitting, no diarrhea, no constipation Objective PHYSICAL EXAM: BP 98/60 Pulse 86 Temp (!) 35.4 ?C (95.7 ?F) (Oral) Resp 17 Ht 177.8 cm (5' 10) Wt 92.4 kg (203 lb 11.3 oz) SpO2 97% BMI 29.23 kg/m? General Appearance:Sleeping soundly Eyes:closed Abdomen:Soft, non-tender Laboratory Results: Glucose (mg/dL) Date Value 04/14/2018 128 Potassium (mmol/L) Date Value 04/14/2018 4.4 Sodium (mmol/L) Date Value 04/14/2018 137 Chloride (mmol/L) Date Value 04/14/2018 100 CO2 (mmol/L) Date Value 04/14/2018 28 Creatinine (mg/dL) Date Value 04/14/2018 0.95 BUN (mg/dL) Date Value 04/14/2018 11 Anion Gap (mmol/L) Date Value 04/14/2018 9 Calcium (mg/dL) Date Value 04/14/2018 8.5 ALT Date Value Ref Range Status 04/14/2018 33 10 - 54 U/L Final AST Date Value Ref Range Status 04/14/2018 28 14 - 40 U/L Final Hemoglobin (g/dL) Date Value 04/14/2018 8.4 Hematocrit (%) Date Value 04/14/2018 25.6 WBC (k/uL) Date Value 04/14/2018 15.15 Platelet Count (k/uL) Date Value 04/14/2018 207 Hemoglobin A1C (%) Date Value 04/04/2018 5.7 LV Ejection Fraction (%) Date Value 04/04/2018 57 ?Diet: Heart healthy Diabetes Management in Hospital Hospital BG values or ranges: ? Date AM LUNCH DINNER HS 3AM 04/12/2018 141 Lantus 5u 120 214-227 191 222-191 04/13/2018 149-186 RHI gtt 5.4-2.2 163-130 Lantus 30 u ? 136-147 120? ? 04/14/18? ?148(h5) 144?(h5) 125 Lantus 30u ? Impression/Recommendations Patient with uncontrolled Diabetes Mellitus Type 2 hyperglycemia s/p CABG x 3 on 04/12/2018 whom we have been consulted for glycemic control. BG stable on below MDI- no changes for now Weight 88.5 kg ? ? RECOMMENDATIONS: ? Basal Insulin: Lantus 30 units q pm ? Prandial Insulin: Humalog 5 units AC TID ? Supplemental Sliding Scale: Humalog Program #2 AC AND HS ? Accuchecks: AC/HS ? Recommend Heart Healthy Diet and CHO Controlled Diet ? Consult CDE regarding: DM Education including none COMPUTER FORENSICS EXAMINER to review MDI ? DM DISCHARGE PLAN: ? MDI insulin of Lantus and Humalog. ? Check blood sugars Three times a Day ? Diet: Heart Healthy Diet and CHO Controlled Diet ? Exercise as prescribed by cardiology ? Follow up with housekeeping/laundry and supervisor fiber locking as recommended. ? Patient will need follow-up with his home hay baler/PCP in 1-2 weeks after discharge. ? Diabetes Care Team Hospital Discharge Help Line: [phone] ? ? Marcin Altheimer [facility] Endocrine and Metabolism [place] Pager [phone] ; Covering DCT/Endo service today until 6 PM Please see On-Call Directory on Home Page for coverage after 6 PM GASA + ALL Collected: 04/14/2018 Status: F Source: [facility] 5:46 AM [facility] RADIANCE USE ONLY REPOSITORY TYPE CODE TESTS RESULT OUT OF REFERENCE UNITS RANGE LAB PH 7.35-7.45 pH 7.39 LAB PCO2 34-46 mm Hg pCO2 High 47 LAB PO2 85-95 mm Hg pO2 Low 74 LAB BE mmol/L Base Excess 3 LAB HCO3 22-26 mmol/L Bicarbonate High 27 LAB CO2CT 22.0-28.0 mmol/L CO2 Content High 29 LAB O2HB 95-98 % Oxyhemoglobin, Low Art. 93 LAB COHB 0-5.0 % Carboxyhemoglobin,A 2.1 rt LAB MHGB 0.4-1.5 % Methemoglobin 0.9 LAB TEMP C Temperature, Body 37.0 LAB PHTC 7.35-7.45 pH, Temp Corrected 7.39 LAB PCO2T 34-46 mm Hg pCO2, Temp High Correct 47 LAB PO2T mm Hg pO2, Temp Corrected 74 LAB NAB 135-146 mmol/L Sodium,Whole Bld Low 133 LAB KWB 3.5-5.0 mmol/L Potassium, Whole Bld 4.1 LAB HGBB 13.0-17.0 g/dL Low Hemoglobin,Total,AC 8.7 L LAB HCTB 39.0-51.0 % Hematocrit, ACL Low 27 LAB IC 1.08-1.30 mmol/L Calcium, Ion, WB 1.22 LAB GLB 60-105 mg/dL Glucose,Whole Bld High 143 LAB LACT 0.5-2.2 mmol/L Lactate 1.1 Performed By: #### ALLBG #### [facility] [address] [place], [place] [address] XR CHEST 1V FRONTAL Observed: 04/14/2018 Status: F Source: [facility] 1:48 AM [facility] REPOSITORY * * *Final Report* * * DATE OF EXAM: Apr 14 2018 1:48AM JIX [id number] - XR CHEST 1V FRONTAL PORT / PROCEDURE REASON: Atelectasis * * * * Physician Interpretation * * * * CHEST RADIOGRAPH (PORTABLE SINGLE VIEW AP) Exam Date/Time: 04/14/2018 1:48 AM Indications: Atelectasis MQ: [id number] Comparison: 1 day earlier RESULTS: See Impression. IMPRESSION: Lines, Tubes, and Devices: Stable support lines and tubes. Lungs and Pleura: Interstitial lung opacities are not significantly changed. No pneumothorax. Cardiomediastinal silhouette: Stable cardiac silhouette. Animal Technician: PSCElizabeth Transcribe Date/Time: Apr 14 2018 7:55A Dictated by : BLANCO HOLLY MD This examination was interpreted and the report reviewed and electronically signed by: BLANCO HOLLY MD on Apr 14 2018 7:56AM EST [id number] GASA + ALL Collected: 04/14/2018 Status: F Source: [place] FOR 1:37 AM [facility] USE ONLY REPOSITORY TYPE CODE TESTS RESULT OUT OF REFERENCE UNITS RANGE LAB PH 7.35-7.45 pH 7.40 LAB PCO2 34-46 mm Hg pCO2 High 47 LAB PO2 85-95 mm Hg pO2 High 103 LAB BE mmol/L Base Excess 3 LAB HCO3 22-26 mmol/L Bicarbonate High 28 LAB CO2CT 22.0-28.0 mmol/L CO2 Content High 29 LAB O2HB 95-98 % Oxyhemoglobin, Art. 96 LAB COHB 0-5.0 % Carboxyhemoglobin, 2.5 Art LAB MHGB 0.4-1.5 % Methemoglobin 0.4 LAB TEMP C Temperature, Body 37.0 LAB PHTC 7.35-7.45 pH, Temp Corrected 7.40 LAB PCO2T 34-46 mm Hg pCO2, Temp High Correct 47 LAB PO2T mm Hg pO2, Temp Corrected 103 LAB NAB 135-146 mmol/L Sodium,Whole Bld 136 LAB KWB 3.5-5.0 mmol/L Potassium, Whole Bld 4.3 LAB HGBB 13.0-17.0 g/dL Low Hemoglobin,Total,A 8.3 CL LAB HCTB 39.0-51.0 % Hematocrit, Low ACL 26 LAB IC 1.08-1.30 mmol/L Calcium, Ion, WB 1.25 LAB GLB 60-105 mg/dL Glucose,Whole High Bld 132 LAB LACT 0.5-2.2 mmol/L Lactate 0.7 LAB ACBDTE Notify Date, Art [id number] LAB ACBTME Notify Time, Art Performed By: #### ALLBG #### [facility] [address] [place], [place] [address] CBC Collected: 04/14/2018 Status: F Source: [place] 1:36 AM [facility] REPOSITORY TYPE CODE TESTS RESULT OUT OF REFERENCE UNITS RANGE LAB WBC 3.70-11.00 k/uL WBC High 15.15 LAB RBC 4.20-6.00 m/uL Low RBC 2.63 LAB HGB 13.0-17.0 g/dL Low Hemoglobin 8.4 LAB HCT 39.0-51.0 % Low Hematocrit 25.6 LAB MCV 80.0-100.0 fL MCV 97.3 LAB MCH 26.0-34.0 pG MCH 31.9 LAB MCHC 30.5-36.0 g/dL MCHC 32.8 LAB RDWCV 11.5-15.0 % RDW-CV 14.8 LAB PLTCT 150-400 k/uL Platelet Count 207 LAB MPV 9.0-12.7 fL MPV 10.7 LAB ABSNUC <0.01 k/uL Absolute nRBC <0.01 Performed By: #### CBC, CMP #### [facility] [address] [place], [place] [address] COMP METABOLIC PANEL Collected: 04/14/2018 Status: F Source: [place] 1:36 AM [facility] REPOSITORY TYPE CODE TESTS RESULT OUT OF REFERENCE UNITS RANGE LAB TP 6.3-8.0 g/dL Low Protein, Total 5.5 LAB ALB 3.9-4.9 g/dL Low Albumin 3.4 LAB CA 8.5-10.2 mg/dL Calcium, Total 8.5 LAB TBIL 0.2-1.3 mg/dL Bilirubin, Total 0.7 LAB ALKP 36-108 U/L Alkaline Phosphatase 38 LAB AST 14-40 U/L AST 28 LAB GLU 74-99 mg/dL Glucose High 128 Result Comment: The [place] [employer] (ADA) provides guidance for cutoff values for fasting glucose and random glucose. The ADA defines fasting as no caloric intake for at least 8 hours. Fas ting plasma glucose results between 100 to 125 mg/dL indicate increased risk for diabetes (prediabetes). Fasting plasma glucose results greater than or equal to 126 mg/dL meet the criteria for diagnosis of diabetes. In the absence of unequivocal hyperglycemia, results should be confirmed by repeat testing. In a patient with classic symptoms of hyperglycemia or hyperglycemic crisis, random plasma glucose results greater than or equal to 200 mg/dL meet the criteria for diagnosis of diabetes. Reference: Standards of Medical Care in Diabetes 2016, [place] [employer]. Diabetes Care. 2016.39(Suppl 1). LAB BUN 9-24 mg/dL BUN 11 LAB CRET 0.73-1.22 mg/dL Creatinine 0.95 LAB NA 136-144 mmol/L Sodium 137 LAB K 3.7-5.1 mmol/L Potassium 4.4 LAB CL 97-105 mmol/L Chloride 100 LAB CO2 22-30 mmol/L CO2 28 LAB AGAP 9-18 mmol/L Anion Gap 9 LAB ALT 10-54 U/L ALT 33 LAB GFRAA eGFR- Amer. >60 LAB GFRNAA . eGFR-All Other Races >60 Result Comment: eGFR (Estimated GFR) Units of measure: mL/min/1.73 meters squared eGFR is derived from the reexpressed MDRD Study equation using the following parameters: serum creatinine, age, gender and race. The creatinine assay has been calibrated to be traceable to IDMS. An eGFR <60 mL/min/1.73m2 for >3 months is consistent with chronic kidney disease. Refer to KDOQI guidelines for clinical interpretation. In patients with unstable renal function, e.g. those with acute kidney injury, the eGFR may not accurately reflect actual GFR. Performed By: #### CBC, CMP #### [facility] [address] [place], [place] [address] GASA + ALL Collected: 04/13/2018 Status: F Source: [place] FOR 11:27 PM [facility] USE ONLY REPOSITORY TYPE CODE TESTS RESULT OUT OF REFERENCE UNITS RANGE LAB PH 7.35-7.45 pH 7.42 LAB PCO2 34-46 mm Hg pCO2 43 LAB PO2 85-95 mm Hg pO2 High 106 LAB BE mmol/L Base Excess 3 LAB HCO3 22-26 mmol/L Bicarbonate High 27 LAB CO2CT 22.0-28.0 mmol/L CO2 Content High 29 LAB O2HB 95-98 % Oxyhemoglobin, Art. 97 LAB COHB 0-5.0 % Carboxyhemoglobin,A 2.3 rt LAB MHGB 0.4-1.5 % Methemoglobin Low 0.0 LAB TEMP C Temperature, Body 37.0 LAB PHTC 7.35-7.45 pH, Temp Corrected 7.42 LAB PCO2T 34-46 mm Hg pCO2, Temp Correct 43 LAB PO2T mm Hg pO2, Temp Corrected 106 LAB NAB 135-146 mmol/L Sodium,Whole Bld 135 LAB KWB 3.5-5.0 mmol/L Potassium, Whole Bld 4.4 LAB HGBB 13.0-17.0 g/dL Low Hemoglobin,Total,AC 8.3 L LAB HCTB 39.0-51.0 % Hematocrit, ACL Low 26 LAB IC 1.08-1.30 mmol/L Calcium, Ion, WB 1.22 LAB GLB 60-105 mg/dL Glucose,Whole Bld High 127 LAB LACT 0.5-2.2 mmol/L Lactate 0.6 Performed By: #### ALLBG #### [facility] [address] [place], [place] [address] GASA + ALL Collected: 04/13/2018 Status: F Source: GERALDINE FOR 8:18 PM [facility] USE ONLY REPOSITORY TYPE CODE TESTS RESULT OUT OF REFERENCE UNITS RANGE LAB PH 7.35-7.45 pH 7.39 LAB PCO2 34-46 mm Hg pCO2 High 47 LAB PO2 85-95 mm Hg pO2 High 116 LAB BE mmol/L Base Excess 3 LAB HCO3 22-26 mmol/L Bicarbonate High 28 LAB CO2CT 22.0-28.0 mmol/L CO2 Content High 30 LAB O2HB 95-98 % Oxyhemoglobin, Art. 97 LAB COHB 0-5.0 % Carboxyhemoglobin,A 2.0 rt LAB MHGB 0.4-1.5 % Methemoglobin 0.4 LAB TEMP C Temperature, Body 37.0 LAB PHTC 7.35-7.45 pH, Temp Corrected 7.39 LAB PCO2T 34-46 mm Hg pCO2, Temp High Correct 47 LAB PO2T mm Hg pO2, Temp Corrected 116 LAB NAB 135-146 mmol/L Sodium,Whole Bld Low 134 LAB KWB 3.5-5.0 mmol/L Potassium, Whole Bld 4.3 LAB HGBB 13.0-17.0 g/dL Low Hemoglobin,Total,AC 8.5 L LAB HCTB 39.0-51.0 % Hematocrit, ACL Low 26 LAB IC 1.08-1.30 mmol/L Calcium, Ion, WB 1.22 LAB GLB 60-105 mg/dL Glucose,Whole Bld High 136 LAB LACT 0.5-2.2 mmol/L Lactate 0.6 Performed By: #### ALLBG #### [facility] [address] [place], [place] [address] CONSULT PROG Observed: 04/13/2018 Status: COMPLETED Source: GERALDINE 5:45 PM [facility] REPOSITORY HNO ID: [id number] Author: Marita Boudreaux) Emile Service: Infectious Disease Author Type: Physician Type: Consult Progress Note Filed: 04/13/2018 5:48 PM Note Text: INFECTIOUS DISEASE CONSULT SERVICE PROGRESS NOTE Date: April 13, 2018 Patient Name: Rick George Jr. Interval Events: Underwent CABG on 04/12/18 Extubated on OR Sleepy but arousable, answers questions Denies complaints MEDICATIONS Medications reviewed. Current hospital medications: NORepinephrine 4 mg in D5W 250 mL (LEVOPHED) 0.6-30 mcg/min INTRAVENOUS CONTINUOUS mupirocin 2% 0.5 g nasal ointment (BACTROBAN) 0.5 g NASAL BID nortriptyline 50 mg cap(s) (PAMELOR) 50 mg ORAL AT BEDTIME dextrose 40 % 15 g 15 g ORAL PRN glucagon 1 mg injection (GLUCAGEN) 1 mg INTRAMUSCULAR PRN dextrose 50% in water 25 mL syringe 12.5 g INTRAVENOUS PRN insulin lispro injection (rapid acting) (HumaLOG) SUBCUTANEOUS w MEALS AND HS furosemide 20 mg injection (LASIX) 20 mg INTRAVENOUS q 12 H 6a/6p [START ON 04/14/2018] insulin lispro 5 Units injection (rapid acting) (HumaLOG) 5 Units SUBCUTANEOUS DAILY WITH BREAKFAST [START ON 04/14/2018] insulin lispro 5 Units injection (rapid acting) (HumaLOG) 5 Units SUBCUTANEOUS DAILY wLUNCH insulin lispro 5 Units injection (rapid acting) (HumaLOG) 5 Units SUBCUTANEOUS DAILY wDINNER [START ON 04/14/2018] insulin glargine 30 Units pen (long acting) (LANTUS SOLOSTAR, BASAGLAR KWIKPEN) 30 Units SUBCUTANEOUS DAILY (5 PM) metoprolol tartrate (short acting) 12.5 mg tab(s) (LOPRESSOR) 12.5 mg ORAL q 12 H Chlorhexidine Gluconate 0.12 % 15 mL (PERIDEX) 15 mL ORAL q [address] 20 mg tab(s) (PROTONIX) 20 mg ORAL DAILY (6 AM) pantoprazole 20 mg CUP (PROTONIX) 20 mg ORAL/FEEDING TUBE DAILY (6 AM) senna-docusate 8.6-50 mg 1 tablet (SENNA-S) 1 tablet ORAL BID bisacodyl 10 mg suppository (DULCOLAX) 10 mg RECTAL DAILY PRN ondansetron (PF) 4 mg injection (ZOFRAN) 4 mg INTRAVENOUS q 6 H PRN potassium chloride iv piggyback 10 mEq/100mL 10 mEq INTRAVENOUS PRN potassium chloride iv piggyback 20 mEq/50 mL 20 mEq INTRAVENOUS PRN potassium chloride 40-120 mEq oral powder (KLOR-CON) 40-120 mEq ORAL/FEEDING TUBE PRN 0.9% NaCl 3-5 mL 3-5 mL INTRAVENOUS q 12 H 0.9% NaCl 10 mL 10 mL INTRAVENOUS q 12 H insulin regular human iv bolus 2-10 Units 2-10 Units INTRAVENOUS PRN dextrose 50% in water 25 mL syringe 12.5 g INTRAVENOUS PRN dextrose 5% in NaCl 0.2% iv infusion 5 mL/hr INTRAVENOUS CONTINUOUS nitroglycerin 50 mg in D5W 250 mL 5-200 mcg/min INTRAVENOUS CONTINUOUS nitroglycerin injection 100 mcg injection syringe 100 mcg INTRAVENOUS PRN PHENYLephrine 0.1 mg injection 100 mcg INTRAVENOUS PRN fentaNYL ASPHALT ENGINEER 20 mcg/mL in NaCl 0.9% 100 mL INTRAVENOUS CONTINUOUS naloxone 0.04 mg injection (NARCAN) 0.04 mg INTRAVENOUS PRN lidocaine 5 % 1 Patch (LIDODERM) 1 Patch TRANSDERMAL DAILY lidocaine patch - REMOVE OTHER AT BEDTIME lidocaine - VERIFY PATCH OTHER q 8 H fentaNYL 50 mcg/mL 25-75 mcg injection (SUBLIMAZE) 25-75 mcg INTRAVENOUS q 1 H PRN acetaminophen 1,000 mg tab(s) (TYLENOL) 1,000 mg ORAL q 6 H acetaminophen 1,000 mg CUP (TYLENOL) 1,000 mg NASOGASTRIC q 6 H [START ON 04/16/2018] acetaminophen 650 mg tab(s) (TYLENOL) 650 mg ORAL/FEEDING TUBE q 4 H PRN oxyCODONE IR 5-10 mg tab(s) (ROXICODONE) 5-10 mg ORAL/FEEDING TUBE q 6 H PRN ciprofloxacin 400 mg in D5W 200 mL (CIPRO) 400 mg INTRAVENOUS q 12 HR vancomycin iv piggyback 1 g in D5W 200 mL (VANCOCIN) 1 g INTRAVENOUS q 12 HR aspirin 162 mg chewable tab(s) 162 mg ORAL/FEEDING TUBE DAILY propofol infusion (DIPRIVAN) 5-60 mcg/kg/min INTRAVENOUS CONTINUOUS propofol iv bolus 10-50 mg (DIPRIVAN) 10-50 mg INTRAVENOUS q 1 H PRN heparin 5,000 Units injection 5,000 Units SUBCUTANEOUS q 12 H vancomycin 125 mg oral liquid (VANCOCIN) 125 mg ORAL QID EXAMINATION: Vital signs: BP 98/60 Pulse 83 Temp 36.3 ?C (97.3 ?F) (Temporal Artery) Resp 21 Ht 177.8 cm (5' 10) Wt 88.5 kg (195 lb 1.6 oz) SpO2 92% BMI 27.99 kg/m? Temp (24hrs), Av.7 ?C (98.1 ?F), Min:36.5 ?C (97.7 ?F), Max:36.9 ?C (98.5 ?F) GENERAL APPEARANCE:alert, in no acute distress SKIN: negative HEAD/SINUSES: No significant findings. EYES: PERRLA, conjunctiva clear LUNGS: Clear to auscultation, No crackles. HEART: Regular rate and rhythm. Median sternotomy bandaged ABDOMEN: Soft, Non-tender, +distended, quiet bx EXTREMITIES: negative edema NEURO: Awake, alert , no involuntary motions. Exam unchanged from note dated 04/08/18 except where updated. LABORATORY DATA: WBC (k/uL) Date Value 04/13/2018 15.13 04/12/2018 22.21 04/12/2018 9.08 Hemoglobin (g/dL) Date Value 04/13/2018 7.5 04/12/2018 8.5 04/12/2018 11.7 Platelet Count (k/uL) Date Value 04/13/2018 276 04/12/2018 335 04/12/2018 397 Creatinine (mg/dL) Date Value 04/13/2018 0.95 04/12/2018 1.03 04/11/2018 0.96 MICROBIOLOGY DATA: reviewed IMAGING DATA: Films personally reviewed. ASSESSMENT/RECOMMENDATIONS: Recent treatment for staph abscess after stepping on nail. Treated with antibiotics and improved about 3 weeks ago no further symptoms Had recent episode of severe coughing after exposure to possibly moldy hay--now resolved ?hypersensitivity c diff--per patient had about 20 bms/day prior to calling PCP and treated with flagyl--stool became more solidified, decreased frequency on Tues Now having more solid stools ~ 1 daily ? Main concern in setting of c diff--frequent BMs in setting of surgery--this has improved. Small risk of worsening with perioperative antibiotcs, maintain oral vanco Foot infection--resolved ? Continue PO vancomycin--will monitor determine final course once off systemic antibiotics and through immediate periop period Discussed with Jazmin Lemus this afternoon Marita Baptiste MD Staff physician Infectious Diseases Pager: [phone] Date and Time of Service: April 13, 2018 / GASA + ALL Collected: 04/13/2018 Status: F Source: GERALDINE FOR 5:19 PM [facility] USE ONLY REPOSITORY TYPE CODE TESTS RESULT OUT OF REFERENCE UNITS RANGE LAB PH 7.35-7.45 pH 7.40 LAB PCO2 34-46 mm Hg pCO2 46 LAB PO2 85-95 mm Hg pO2 Low 78 LAB BE mmol/L Base Excess 3 LAB HCO3 22-26 mmol/L Bicarbonate High 28 LAB CO2CT 22.0-28.0 mmol/L CO2 Content High 29 LAB O2HB 95-98 % Oxyhemoglobin, Art. 95 LAB COHB 0-5.0 % Carboxyhemoglobin,A 2.2 rt LAB MHGB 0.4-1.5 % Methemoglobin 0.9 LAB TEMP C Temperature, Body 37.0 LAB PHTC 7.35-7.45 pH, Temp Corrected 7.40 LAB PCO2T 34-46 mm Hg pCO2, Temp Correct 46 LAB PO2T mm Hg pO2, Temp Corrected 78 LAB NAB 135-146 mmol/L Sodium,Whole Bld 135 LAB KWB 3.5-5.0 mmol/L Potassium, Whole Bld 4.2 LAB HGBB 13.0-17.0 g/dL Low Hemoglobin,Total,AC 8.1 L LAB HCTB 39.0-51.0 % Hematocrit, ACL Low 25 LAB IC 1.08-1.30 mmol/L Calcium, Ion, WB 1.28 LAB GLB 60-105 mg/dL Glucose,Whole Bld High 147 LAB LACT 0.5-2.2 mmol/L Lactate 0.7 Performed By: #### ALLBG #### [facility] [address], [place] [address] GASV + ALL Collected: 04/13/2018 Status: F Source: GERALDINE 2:41 PM [facility] REPOSITORY TYPE CODE TESTS RESULT OUT OF REFERENCE UNITS RANGE LAB VPH 7.32-7.42 pH 7.34 LAB VPC2 42-55 mm Hg pCO2 53 LAB VPO2 35-45 mm Hg pO2 44 LAB VBE mmol/L Base Excess 2 LAB VHC3 24-28 mmol/L Bicarbonate 27 LAB VC2C 25-29 mmol/L CO2 Content 29 LAB O2HBCX 60-85 % Oxyhemoglobin, Javon. 77 LAB CO <2.0 % High Carboxyhemoglobin, 2.0 Javon LAB METHB 0.4-1.5 % Methemoglobin 0.9 LAB VTMP C Temperature, Body 37.0 LAB VPHTC 7.32-7.42 pH, Temp Corrected 7.34 LAB VPC2T mm Hg pCO2, Temp Correct 53 LAB VPO2T mm Hg pO2, Temp Corrected 44 LAB NAB 135-146 mmol/L Sodium,Whole Bld 137 LAB KWB 3.5-5.0 mmol/L Potassium, Whole Bld 4.1 LAB HGBB 13.0-17.0 g/dL Low Hemoglobin,Total,A 7.6 CL LAB HCTB 39.0-51.0 % Hematocrit, Low ACL 24 LAB IC 1.08-1.30 mmol/L Calcium, Ion, WB 1.16 LAB GLB 60-105 mg/dL Glucose,Whole High Bld 136 LAB LACT 0.5-2.2 mmol/L Lactate 0.9 LAB VCBDTE Notify Date, Javon [id number] LAB VCBTME Notify Time, Javon [id number] Performed By: #### VALLBG #### [facility] [address] [place], [place] [address] CONSULT Observed: 04/13/2018 Status: COMPLETED Source: GERALDINE 2:17 PM [facility] REPOSITORY HNO ID: [id number] Author: Radha Singh Service: Endocrinology Author Type: Nurse Practitioner Type: Consults Filed: 04/13/2018 6:32 PM Note Text: INITIAL CONSULT ENDOCRINOLOGY SERVICE DATE: 04/13/2018 SERVICE TIME: 2:17 PM Requesting Provider: Sammy Zhu Opinion/Advice Regarding: Management of Diabetes Mellitus Type 2 hyperglycemia insulin dependent Service: DCT (Diabetes Care Team) Subjective HPI: Mr. Rick George Jr. is a 58 year old male with a 213 year history of Diabetes Mellitus Type 2 hyperglycemia (diagnosed 2004)who was admitted on 04/03/2018 transferred from OSH w/ NSTEMI. C diff positive at OSH. Now s/p CABG x 3 on 04/12/2018 Past medical history significant for HTN, CAD, CVA, PAD, PVD, and NSTEMI. Patient does Exercise. 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 Last HbA1c was 5.7%on 04/04/2018. He has a family history of diabetes in his mother, father, grandparents from both sides. He is followed by PCP for his diabetes at [place] Dr. Escalante. DIABETIC COMPLICATIONS: Retinopathy: Unspecified Neuropathy but relate that to stroke not DM/CVA in 2012 Cataracts Pre-Admission DM Regimen: Preadmission oral agents: None Preadmission insulin regimen: Lantus 20 units Q HS Humalog 12-20 units AC and Sliding scale ( I check my BG 2 hours after meal intake and use scale if ir is high). Self Monitoring Blood Glucose: Type of Monitor: Freestyle Frequency of Monitoring: Three times a Day BG Values: 150-160 post meals at times in 200mg/dL Hypoglycemia: No but per primary note at times low 60 mg/dL PAST MEDICAL HISTORY Diagnosis Date - Cataract b/l, eye exam 05/29/13 - CTS (carpal tunnel syndrome) 10/2013 b/l, chronic, Dr. 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 Mazin Hinojosa Neuro, likely from DM and Vitamin B12 defic - Stroke ([facility]) 10/01/13 - Ulnar neuropathy 10/2013 b/l, chronic, Dr. Mazin Hinojosa EMG - Vitamin D deficiency 11/2013 PAST SURGICAL HISTORY Procedure Laterality Date - DISCISSION,2ND CATARACT,LASER 06/07/2013 Yag Capsulotomy-Right eye - LASER, SECONDARY CATARACT 2006 OU - PAST SURGICAL HISTORY OF 02/2013 Amputation Right Gt toe FAMILY HISTORY Problem Relation Age of Onset - Diabetes Mother - Heart Father Social History Substance Use Topics - Smoking status: Never Smoker - Smokeless tobacco: Former User Types: Chew - Alcohol use 12.0 oz/week 8 Cans of Beer (12oz) per week Comment: 1-2 per day MEDICATIONS: Facility-Administered Medications Prior to Admission: cyanocobalamin 1,000 mcg injection 1,000 mcg INTRAMUSCULAR q 4 WEEKS Avery L Escalante 1,000 mcg at 03/20/18 1034 Prescriptions Prior to Admission: ammonium lactate (LAC-HYDRIN) 12 % cream APPLY CREAM TOPICALLY TO AFFECTED AREA ONCE DAILY Disp: 140 g Rfl: 11 Unknown at Unknown time gabapentin (NEURONTIN) 800 mg tablet Take 800 mg by mouth three times daily. Disp: Rfl: Past Week at Unknown time Magnesium 250 mg tab Take 1 tablet by mouth once daily. Disp: 90 tablet Rfl: 3 Past Week at Unknown time celecoxib (CELEBREX) 200 mg capsule Take 1 capsule by mouth once daily. Disp: 30 capsule Rfl: 5 Past Week at Unknown time Tadalafil (CIALIS) 20 mg tab(s) Take 1 tablet by mouth once daily. Disp: 36 tablet Rfl: 11 Past Week at Unknown time blood sugar diagnostic (FREESTYLE LITE STRIPS) test strip Check blood glucose three times daily. Dx: E11.42, Insulin dependent Disp: 300 Strip Rfl: 3 Past Week at Unknown time LUIS JESUS U-100 INSULIN 100 unit/mL (3 mL) inpn INJECT 20 UNITS SUBCUTANEOUSLY ONCE DAILY AT BEDTIME Disp: 15 Pen Rfl: 3 Past Week at Unknown time ketoconazole (NIZORAL) 2 % cream APPLY TO AFFECTED AREA ON FACE ONCE DAILY Disp: 60 g Rfl: 2 Past Week at Unknown time Cholecalciferol, Vitamin D3, 5,000 unit cap TAKE ONE CAPSULE BY MOUTH ONCE DAILY Disp: 30 capsule Rfl: 5 Past Week at Unknown time lisinopril (ZESTRIL,PRINIVIL) 30 mg tablet Take 1 tablet by mouth once daily. Disp: 30 tablet Rfl: 5 Past Week at Unknown time amLODIPine (NORVASC) 5 mg tablet Take 1 tablet by mouth once daily. Disp: 30 tablet Rfl: 5 Past Week at Unknown time cyanocobalamin 1,000 mcg/mL soln Inject 1 mL intramuscularly once every month. Disp: 1 mL Rfl: 12 Past Week at Unknown time Biotin 1 mg tab Take 1 tablet by mouth once daily. Disp: 30 tablet Rfl: 11 Past Week at Unknown time aspirin 325 mg tablet Take 1 tablet by mouth once daily. Disp: 90 tablet Rfl: 3 Past Week at Unknown time diflorasone 0.05 % cream APPLY CREAM TO AFFECTED AREA TWICE DAILY NEEDED FOR RASH Disp: 60 g Rfl: 1 Past Week at Unknown time HUMALOG KWIKPEN 100 unit/mL inpn INJECT 12 TO 20 UNITS SUBCUTANEOUSLY WITH MEALS DIRECTED Disp: 3 Pen Rfl: 5 Past Week at Unknown time desonide (TRIDESILON) 0.05 % cream APPLY TO AFFECTED AREA ONCE DAILY NEEDED FOR FACE RASH Disp: 60 g Rfl: 2 Past Week at Unknown time [id number]-algal oil (METANX, ALGAL OIL,) 3 mg-35 mg-2 mg -90.314 mg cap Take 1 capsule by mouth once daily. Disp: 90 capsule Rfl: 3 Past Week at Unknown time Cetirizine 10 mg cap Take 1 capsule by mouth once daily. Disp: 90 capsule Rfl: 3 Past Week at Unknown time insulin needles, DISPOSABLE, (BD INSULIN PEN NEEDLE UF) 31 gauge x 5/16 ndle USE TO GIVE INSULIN INJECTIONS 4 TIMES DAILY Disp: 400 Each Rfl: 3 Past Week at Unknown time HUMALOG KWIKPEN 100 unit/mL inpn INJECT 12 TO 20 UNITS SUBCUTANEOUSLY WITH MEALS DIRECTED Disp: 18 Pen Rfl: 1 Past Week at Unknown time FREESTYLE LANCETS 28 gauge misc USE DIRECTED 3 TO 4 TIMES DAILY TO TEST BLOOD GLUCOSE Disp: 400 Each Rfl: 3 Past Week at Unknown time nortriptyline (PAMELOR) 50 mg capsule TAKE ONE CAPSULE BY MOUTH ONCE DAILY AT BEDTIME Disp: 90 capsule Rfl: 3 Past Week at Unknown time tiZANidine (ZANAFLEX) 4 mg tablet Take 1 tablet by mouth every 6 hours as needed. Disp: 90 tablet Rfl: 5 Past Week at Unknown time Blood Pressure Cuff - Home Use BLOOD PRESSURE CUFF FOR HOME USE. DX: LABILE BLOOD PRESSURE Disp: 1 Device Rfl: 0 Past Week at Unknown time ketoconazole (NIZORAL) 2 % shampoo Apply 1 application to affected area once daily as needed (scalp). Disp: 120 mL Rfl: 11 Past Week at Unknown time Ammonium,Pot.and Sodium Lactates (AMLACTIN) crea Apply 1 Tube to affected area once daily. Disp: 1 Tube Rfl: 6 Past Week at Unknown time baclofen (LIORESAL) 20 mg tablet Disp: Rfl: Past Week at Unknown time Alcohol Swabs (ALCOHOL PREP PADS) padm Apply 1 application to affected area four times daily. Disp: 120 Each Rfl: 11 Past Week at Unknown time Blood-Glucose Meter (FREESTYLE LITE METER) monitoring kit Freestyle LITE Meter Kit - Dx: Type 2 DM - Controlled E11.9 Disp: 1 Each Rfl: 0 Past Week at Unknown time Urea 10 % lotion Apply 1 application to affected area three times daily. For feet Disp: 227 mL Rfl: 3 Current hospital medications: NORepinephrine 4 mg in D5W 250 mL (LEVOPHED) 0.6-30 mcg/min INTRAVENOUS CONTINUOUS mupirocin 2% 0.5 g nasal ointment (BACTROBAN) 0.5 g NASAL BID nortriptyline 50 mg cap(s) (PAMELOR) 50 mg ORAL AT BEDTIME insulin glargine 30 Units pen (long acting) (LANTUS SOLOSTAR, BASAGLAR KWIKPEN) 30 Units SUBCUTANEOUS ONCE dextrose 40 % 15 g 15 g ORAL PRN glucagon 1 mg injection (GLUCAGEN) 1 mg INTRAMUSCULAR PRN dextrose 50% in water 25 mL syringe 12.5 g INTRAVENOUS PRN insulin lispro injection (rapid acting) (HumaLOG) SUBCUTANEOUS w MEALS AND HS Chlorhexidine Gluconate 0.12 % 15 mL (PERIDEX) 15 mL ORAL q [address] 20 mg tab(s) (PROTONIX) 20 mg ORAL DAILY (6 AM) pantoprazole 20 mg CUP (PROTONIX) 20 mg ORAL/FEEDING TUBE DAILY (6 AM) senna-docusate 8.6-50 mg 1 tablet (SENNA-S) 1 tablet ORAL BID bisacodyl 10 mg suppository (DULCOLAX) 10 mg RECTAL DAILY PRN ondansetron (PF) 4 mg injection (ZOFRAN) 4 mg INTRAVENOUS q 6 H PRN potassium chloride iv piggyback 10 mEq/100mL 10 mEq INTRAVENOUS PRN potassium chloride iv piggyback 20 mEq/50 mL 20 mEq INTRAVENOUS PRN potassium chloride 40-120 mEq oral powder (KLOR-CON) 40-120 mEq ORAL/FEEDING TUBE PRN 0.9% NaCl 3-5 mL 3-5 mL INTRAVENOUS q 12 H 0.9% NaCl 10 mL 10 mL INTRAVENOUS q 12 H insulin regular human iv bolus 2-10 Units 2-10 Units INTRAVENOUS PRN insulin regular 250 units in NaCl 0.9% 250 mL iv infusion - HVI CVICU NOMOGRAM 0.5-40 Units/hr INTRAVENOUS CONTINUOUS dextrose 50% in water 25 mL syringe 12.5 g INTRAVENOUS PRN dextrose 5% in NaCl 0.2% iv infusion 5 mL/hr INTRAVENOUS CONTINUOUS nitroglycerin 50 mg in D5W 250 mL 5-200 mcg/min INTRAVENOUS CONTINUOUS nitroglycerin injection 100 mcg injection syringe 100 mcg INTRAVENOUS PRN PHENYLephrine 0.1 mg injection 100 mcg INTRAVENOUS PRN fentaNYL ASPHALT ENGINEER 20 mcg/mL in NaCl 0.9% 100 mL INTRAVENOUS CONTINUOUS naloxone 0.04 mg injection (NARCAN) 0.04 mg INTRAVENOUS PRN lidocaine 5 % 1 Patch (LIDODERM) 1 Patch TRANSDERMAL DAILY lidocaine patch - REMOVE OTHER AT BEDTIME lidocaine - VERIFY PATCH OTHER q 8 H fentaNYL 50 mcg/mL 25-75 mcg injection (SUBLIMAZE) 25-75 mcg INTRAVENOUS q 1 H PRN acetaminophen 1,000 mg tab(s) (TYLENOL) 1,000 mg ORAL q 6 H acetaminophen 1,000 mg CUP (TYLENOL) 1,000 mg NASOGASTRIC q 6 H [START ON 04/16/2018] acetaminophen 650 mg tab(s) (TYLENOL) 650 mg ORAL/FEEDING TUBE q 4 H PRN oxyCODONE IR 5-10 mg tab(s) (ROXICODONE) 5-10 mg ORAL/FEEDING TUBE q 6 H PRN ciprofloxacin 400 mg in D5W 200 mL (CIPRO) 400 mg INTRAVENOUS q 12 HR vancomycin iv piggyback 1 g in D5W 200 mL (VANCOCIN) 1 g INTRAVENOUS q 12 HR aspirin 162 mg chewable tab(s) 162 mg ORAL/FEEDING TUBE DAILY EPINEPHrine iv infusion 4 mg in D5W 250 mL 0.5-30 mcg/min INTRAVENOUS CONTINUOUS propofol infusion (DIPRIVAN) 5-60 mcg/kg/min INTRAVENOUS CONTINUOUS propofol iv bolus 10-50 mg (DIPRIVAN) 10-50 mg INTRAVENOUS q 1 H PRN heparin 5,000 Units injection 5,000 Units SUBCUTANEOUS q 12 H vancomycin 125 mg oral liquid (VANCOCIN) 125 mg ORAL QID ALLERGIES Allergen Reactions - Lipitor [Atorvastat* Contraindication-Medical Surgical Elevated LFTs and elevated CK level - Metformin Diarrhea COMPLETE REVIEW OF SYSTEMS: WEIGHT: Stable EYES: Cataracts and Proliferative retinopathy HYDRATION: No polydypsia or thirst CARDIAC: NSTEMI /CAD RESPIRATORY: Negative for cough, wheezing or shortness of breath GI: + C diff positive at OSH on ATB/ no nausea, fullness, vomiting, : no dysuria, frequency, hesitancy, hematuria, polyuria or nocturia SKIN: Rash on medication see med list MUSCULOSKELETAL: No joint pain, stiffness, swelling, cramping or weakness NERVOUS SYSTEM: + nerve [ain left side ALL OTHER SYSTEMS: normal Last Eye Exam: one and half year ago Last Podiatry Exam: every 90 days. Objective PHYSICAL EXAM: BP 98/60 Pulse 80 Temp 36.3 ?C (97.3 ?F) (Temporal Artery) Resp 19 Ht 177.8 cm (5' 10) Wt 88.5 kg (195 lb 1.6 oz) SpO2 100% BMI 27.99 kg/m? Body mass index is 27.99 kg/m?. Appearance: Well appearing, alert, in no acute distress, well-hydrated, well nourished. Eyes: conjunctiva and sclera normal Neck: Supple Heart: RRR without murmur, Lungs clear to auscultation. Abdomen bowel sounds / + chest tube Extremities: No deformities, edema, skin discoloration, clubbing or cyanosis. Good capillary refill. Neuro: Awake, alert and oriented x 3, No involuntary motions. Feet: Shoes and socks removed, amputated right great toe and second toe per patient due to ecoli infection healed well, no ulcers, calluses, normal distal pulses Skin: Color, texture, turgor normal Laboratory Results: Hemoglobin (g/dL) Date Value 04/13/2018 7.5 Hematocrit (%) Date Value 04/13/2018 23.6 WBC (k/uL) Date Value 04/13/2018 15.13 Platelet Count (k/uL) Date Value 04/13/2018 276 Potassium (mmol/L) Date Value 04/13/2018 4.5 Sodium (mmol/L) Date Value 04/13/2018 140 Magnesium (mg/dL) Date Value 04/04/2018 1.9 Creatinine (mg/dL) Date Value 04/13/2018 0.95 BUN (mg/dL) Date Value 04/13/2018 10 Glucose (mg/dL) Date Value 04/13/2018 113 PT INR (no units) Date Value 04/12/2018 1.2 TSH (uU/mL) Date Value 04/04/2018 2.410 Lipids: Cholesterol, Total (mg/dL) Date Value 04/04/2018 92 HDL Cholesterol (mg/dL) Date Value 04/04/2018 24 LDL Cholesterol (mg/dL) Date Value 04/04/2018 56 Triglyceride (mg/dL) Date Value 04/04/2018 58 Albumin (g/dL) Date Value 04/13/2018 3.8 (L) Bilirubin, Total (mg/dL) Date Value 04/13/2018 0.6 Bilirubin, Conjug (mg/dL) Date Value 03/21/2015 <0.2 Alkaline Phosphatase (U/L) Date Value 04/13/2018 35 (L) AST (U/L) Date Value 04/13/2018 39 ALT (U/L) Date Value 04/13/2018 38 Protein, Total (g/dL) Date Value 04/13/2018 5.5 (L) LV Ejection Fraction (%) Date Value 04/04/2018 57 Hemoglobin A1C (%) Date Value 04/04/2018 5.7 01/25/2018 6.1 11/01/2017 6.3 07/07/2017 5.8 04/01/2017 5.5 Diabetes Management in Hospital Hospital BG values or ranges: Date AM LUNCH DINNER HS 3AM 04/12/2018 141 Lantus 5u 120 214-227 191 222-191 04/13/2018 149-186 RHI gtt 5.4-2.2 163-130 Lantus 30 u 136-147 Diabetes Management Prior to the Consultation/HPI: Lantus 30 units once SSC Humalog #2 AC and HS Other Pertinent Medications: Continuous Infusion: see e MARS + Levo drip Steroids: no Diet: NPO Tube Feeding: No Supplements: no Impression/Recommendations Patient with uncontrolled Diabetes Mellitus Type 2 hyperglycemia s/p CABG x 3 on 04/12/2018 whom we have been consulted for glycemic control. BG above normal just received Lantus and nursing stopped insulin drip right after basal given' Patient levo and will remains in ICU until over night. Currently NPO, will adjust plan as follow. Weight 88.5 kg RECOMMENDATIONS: ? Continue Basal Insulin: Lantus 30 units q pm ? Start Prandial Insulin: Humalog 5 units AC TID ? Continue Supplemental Sliding Scale: Humalog Program #2 AC AND HS ? Accuchecks: AC/HS ? Recommend Heart Healthy Diet and CHO Controlled Diet ? Consult CDE regarding: DM Education including none COMPUTER FORENSICS EXAMINER to review MDI DM DISCHARGE PLAN: ? MDI insulin of Lantus and Humalog. ? Check blood sugars Three times a Day ? Diet: Heart Healthy Diet and CHO Controlled Diet ? Exercise as prescribed by cardiology ? Follow up with housekeeping/laundry and supervisor fiber locking as recommended. ? Patient will need follow-up with his home hay baler/PCP in 1-2 weeks after discharge. ? Diabetes Care Team Hospital Discharge Help Line: [phone] SIGNATURE: Radha Singh APRN.CNP PATIENT NAME: Rick George Jr. DATE: April 13, 2018 TIME: 2:17 PM PAGER/CONTACT #: [phone] PROGRESS Observed: 04/13/2018 Status: COMPLETED Source: [place] 1:27 PM [facility] REPOSITORY O ID: [id number] Author: Jazmin Lemus Service: Critical Care Author Type: Nurse Practitioner Type: Progress Notes Filed: 04/13/2018 1:29 PM Note Text: [facility] Note Name: Rick George Jr. Coordination of Care Note: Indication for Surgery: Coronary Artery Disease LVEF: 57% RVF: Normal Important/Relevant PMH/PSH: CAD, NSTEMI, HTN, HLD, PAD/PVD, CVA (unknown residual) DM2. Preoperative Hospital Course (narrative): Transferred from OSH w/ NSTEMI. C. Diff positive at OSH, continue PO vanco. Procedure/Surgeries: 04/12/2018 CABGx3, MACK to LAD , SVG to PD pf CX , SVG to OM Airway Difficulty: Grade I - No special instrumentation OR Course: Uncomplicated Pacing wires: Yes: Ventricular: When discontinuing pacing wires: Pull all pacing wires Postoperative Course/General Impression: (narrative or log of major events with date of onset): Arrived to unit intubated and sedated. Cardiac insufficiency coming off CPB requiring epinephrine infusion, now off. Hypertensive on arrival to unit, NTG infusion started to maintain MAPs 65-75. Currently on levophed, wean as able. IVF resuscitation as needed. Pain AND glucose control. Issues to communicate at signout: 04/12/2018 -WTE -C-Diff Discharge Planning: Anticipated Discharge Date: Unknown Unknown Care Management Discharge Needs: Needs Prior to Discharge: To Be Determined Other Problems I Reviewed and/or Managed During This Encounter: Problem Nstemi (Non-St Elevated Myocardial Infarction) (Hcc) 04/12/2018 s/p CABGx3, MACK to LAD , SVG to PD pf CX , SVG to OM Coronary Artery Disease Involving [place] Coronary Artery of [place] Heart With Unstable Angina Pectoris (Hcc) 04/12/2018 s/p CABGx3, MACK to LAD , SVG to PD pf CX , SVG to OM CAD Core Measures: Aspirin: Yes Beta blockers: No - hypotension Statins: Reassess for Best Practices prior to hospital discharge Atelectasis A/P: Post-operative atelectasis. OOB, PEP and optimize pain control. Wean O2 as tolerated Hypotension A/P: Levophed infusion for MAPs 65-75. Wean as able. Cardiac Insufficiency (Hcc) A/P: Cardiac insufficiency coming off CPB requiring epinephrine infusion. Off this am, HD stable Post-Operative Pain A/P Pain well-controlled. Continue fentanyl ASPHALT ENGINEER, scheduled lidoderm patches and tylenol, prn oxycodone Lower Back Pain Home regimen: Neurontin and zanaflex preoperatively. A/P: Denies pain at this time. Continue to assess and resume medication when appropriate Stress Hyperglycemia HgA1C 5.7. Home regimen: humalog insulin A/P: Perioperative insulin resistance, SSI as needed per CVICU protocol for goal glycemic control <180. Endocrinology consulted C. Difficile Colitis A/P: C. Diff positive at OSH. Per ID recs, continue PO vancomycin. Depression Home regimen Nortriptyline A/P: Resume home dose today PHYSICAL EXAM: Neuro: Awake, Follows commands and Alert and oriented x 3 Cardiovascular: Rhythm: regular rate and rhythm Pulmonary: Clear to auscultation and Breath sounds equal Ventilator: N/A, patient is extubated CXR Findings: Atelectasis Bilateral and CXR personally viewed and interpreted by ICU staff Nurse Practitioner Gastrointestinal: Abdominal: Soft and Non-tender DAILY CVICU CHECKLIST VTE Prophylaxis: Pharmacologic Yes VTE Prophylaxis: Mechanical: Yes Line infection prevention: Can CVC, PAC or arterial line be removed: Not indicated Continued need for urinary catheter: Yes - clinical indication: Patient post major surgery requiring fluid balance and input and output measurement. Restraints needed: No SIGNATURE: Jazmin Lemus CNP pager [phone] DATE of SERVICE: 04/13/2018 TIME of SERVICE: 1:28 PM GASA + ALL Collected: 04/13/2018 Status: F Source: [place] FOR 12:08 PM [facility] USE ONLY REPOSITORY TYPE CODE TESTS RESULT OUT OF REFERENCE UNITS RANGE LAB PH 7.35-7.45 pH 7.41 LAB PCO2 34-46 mm Hg pCO2 43 LAB PO2 85-95 mm Hg pO2 90 LAB BE mmol/L Base Excess 2 LAB HCO3 22-26 mmol/L Bicarbonate High 27 LAB CO2CT 22.0-28.0 mmol/L CO2 Content 28 LAB O2HB 95-98 % Oxyhemoglobin, Art. 96 LAB COHB 0-5.0 % Carboxyhemoglobin, 1.8 Art LAB MHGB 0.4-1.5 % Methemoglobin Low 0.3 LAB TEMP C Temperature, Body 37.0 LAB PHTC 7.35-7.45 pH, Temp Corrected 7.41 LAB PCO2T 34-46 mm Hg pCO2, Temp Correct 43 LAB PO2T mm Hg pO2, Temp Corrected 90 LAB NAB 135-146 mmol/L Sodium,Whole Bld 136 LAB KWB 3.5-5.0 mmol/L Potassium, Whole Bld 4.5 LAB HGBB 13.0-17.0 g/dL Low Hemoglobin,Total,A 8.9 CL LAB HCTB 39.0-51.0 % Hematocrit, Low ACL 28 LAB IC 1.08-1.30 mmol/L Calcium, Ion, WB 1.17 LAB GLB 60-105 mg/dL Glucose,Whole High Bld 130 LAB LACT 0.5-2.2 mmol/L Lactate 0.9 LAB ACBDTE Notify Date, Art [id number] LAB ACBTME Notify Time, Art Performed By: #### ALLBG #### [facility] [address] [place], [place] [address] GASV + ALL Collected: 04/13/2018 Status: F Source: [place] 10:14 AM [facility] [place] REPOSITORY TYPE CODE TESTS RESULT OUT OF REFERENCE UNITS RANGE LAB VPH 7.32-7.42 pH 7.34 LAB VPC2 42-55 mm Hg pCO2 54 LAB VPO2 35-45 mm Hg pO2 36 LAB VBE mmol/L Base Excess 3 LAB VHC3 24-28 mmol/L Bicarbonate High 29 LAB VC2C 25-29 mmol/L CO2 Content High 30 LAB O2HBCX 60-85 % Oxyhemoglobin, Javon. 64 LAB CO <2.0 % Carboxyhemoglobin,V 1.4 en LAB METHB 0.4-1.5 % Methemoglobin 1.3 LAB VTMP C Temperature, Body 37.0 LAB VPHTC 7.32-7.42 pH, Temp Corrected 7.34 LAB VPC2T mm Hg pCO2, Temp Correct 54 LAB VPO2T mm Hg pO2, Temp Corrected 36 LAB NAB 135-146 mmol/L Sodium,Whole Bld 136 LAB KWB 3.5-5.0 mmol/L Potassium, Whole Bld 4.5 LAB HGBB 13.0-17.0 g/dL Low Hemoglobin,Total,AC 9.1 L LAB HCTB 39.0-51.0 % Hematocrit, ACL Low 28 LAB IC 1.08-1.30 mmol/L Calcium, Ion, WB 1.20 LAB GLB 60-105 mg/dL Glucose,Whole Bld High 163 LAB LACT 0.5-2.2 mmol/L Lactate 1.4 Performed By: #### VALLBG #### [facility] [address] [id number] GASA + ALL Collected: 04/13/2018 Status: F Source: [place] FOR 8:49 AM [facility] USE ONLY REPOSITORY TYPE CODE TESTS RESULT OUT OF REFERENCE UNITS RANGE LAB PH 7.35-7.45 pH 7.39 LAB PCO2 34-46 mm Hg pCO2 43 LAB PO2 85-95 mm Hg pO2 High 147 LAB BE mmol/L Base Excess 1 LAB HCO3 22-26 mmol/L Bicarbonate 26 LAB CO2CT 22.0-28.0 mmol/L CO2 Content 27 LAB O2HB 95-98 % Oxyhemoglobin, Art. 98 LAB COHB 0-5.0 % Carboxyhemoglobin,A 1.6 rt LAB MHGB 0.4-1.5 % Methemoglobin Low 0.2 LAB TEMP C Temperature, Body 37.0 LAB PHTC 7.35-7.45 pH, Temp Corrected 7.39 LAB PCO2T 34-46 mm Hg pCO2, Temp Correct 43 LAB PO2T mm Hg pO2, Temp Corrected 147 LAB NAB 135-146 mmol/L Sodium,Whole Bld 135 LAB KWB 3.5-5.0 mmol/L Potassium, Whole Bld 4.5 LAB HGBB 13.0-17.0 g/dL Low Hemoglobin,Total,AC 8.3 L LAB HCTB 39.0-51.0 % Hematocrit, ACL Low 26 LAB IC 1.08-1.30 mmol/L Calcium, Ion, WB 1.17 LAB GLB 60-105 mg/dL Glucose,Whole Bld High 186 LAB LACT 0.5-2.2 mmol/L Lactate 1.0 Performed By: #### ALLBG #### [facility] [address] [place], [place] [address] CASE MANAGEM Observed: 04/13/2018 Status: COMPLETED Source: [place] 7:59 AM [facility] REPOSITORY HNO ID: [id number] Author: Stephen (Rn) LIN Kelley Service: Case Management Author Type: Registered Nurse Type: Care Mgt Progress Note Filed: 04/13/2018 8:01 AM Note Text: CARE MANAGEMENT PROGRESS NOTE SERVICE DATE: 04/13/2018 SERVICE TIME: 7:59 AM LOS: 9 days Needs Prior to Discharge: To Be Determined;OT/PT Evaluation Procedure/Surgeries: 04/12/2018 CABGx3, MACK to LAD , SVG to PD pf CX , SVG to OM 2L NC, CTx3, Epi and Levo gtts. Pt will need PT/OT eval. DC needs TBD. Case Management will continue to follow medical course and plan discharge accordingly. SIGNATURE: Stephen Kelley RN PATIENT NAME: Rick George Jr. DATE: April 13, 2018 TIME: 7:59 AM PAGER/CONTACT #: [phone] GASV + ALL Collected: 04/13/2018 Status: F Source: [place] 5:06 AM [facility] REPOSITORY TYPE CODE TESTS RESULT OUT OF REFERENCE UNITS RANGE LAB VPH 7.32-7.42 pH 7.37 LAB VPC2 42-55 mm Hg pCO2 50 LAB VPO2 35-45 mm Hg pO2 41 LAB VBE mmol/L Base Excess 3 LAB VHC3 24-28 mmol/L Bicarbonate 28 LAB VC2C 25-29 mmol/L CO2 Content High 30 LAB O2HBCX 60-85 % Oxyhemoglobin, Javon. 74 LAB CO <2.0 % Carboxyhemoglobin,V 1.3 en LAB METHB 0.4-1.5 % Methemoglobin 0.7 LAB VTMP C Temperature, Body 37.0 LAB VPHTC 7.32-7.42 pH, Temp Corrected 7.37 LAB VPC2T mm Hg pCO2, Temp Correct 50 LAB VPO2T mm Hg pO2, Temp Corrected 41 LAB NAB 135-146 mmol/L Sodium,Whole Bld 136 LAB KWB 3.5-5.0 mmol/L Potassium, Whole Bld 4.6 LAB HGBB 13.0-17.0 g/dL Low Hemoglobin,Total,AC 8.6 L LAB HCTB 39.0-51.0 % Hematocrit, ACL Low 27 LAB IC 1.08-1.30 mmol/L Calcium, Ion, WB 1.18 LAB GLB 60-105 mg/dL Glucose,Whole Bld High 149 LAB LACT 0.5-2.2 mmol/L Lactate 1.0 Performed By: #### VALLBG #### [facility] [address] [place], [place] [address] GASA + ALL Collected: 04/13/2018 Status: F Source: [facility] 5:03 AM [facility] USE ONLY REPOSITORY TYPE CODE TESTS RESULT OUT OF REFERENCE UNITS RANGE LAB PH 7.35-7.45 pH 7.41 LAB PCO2 34-46 mm Hg pCO2 43 LAB PO2 85-95 mm Hg pO2 High 136 LAB BE mmol/L Base Excess 2 LAB HCO3 22-26 mmol/L Bicarbonate High 27 LAB CO2CT 22.0-28.0 mmol/L CO2 Content 28 LAB O2HB 95-98 % Oxyhemoglobin, Art. 97 LAB COHB 0-5.0 % Carboxyhemoglobin,A 1.3 rt LAB MHGB 0.4-1.5 % Methemoglobin 0.8 LAB TEMP C Temperature, Body 37.0 LAB PHTC 7.35-7.45 pH, Temp Corrected 7.41 LAB PCO2T 34-46 mm Hg pCO2, Temp Correct 43 LAB PO2T mm Hg pO2, Temp Corrected 136 LAB NAB 135-146 mmol/L Sodium,Whole Bld 137 LAB KWB 3.5-5.0 mmol/L Potassium, Whole Bld 4.7 LAB HGBB 13.0-17.0 g/dL Low Hemoglobin,Total,AC 8.7 L LAB HCTB 39.0-51.0 % Hematocrit, ACL Low 27 LAB IC 1.08-1.30 mmol/L Calcium, Ion, WB 1.17 LAB GLB 60-105 mg/dL Glucose,Whole Bld High 154 LAB LACT 0.5-2.2 mmol/L Lactate 0.9 Performed By: #### ALLBG #### [facility] [address] [place], [place] [address] GASV + ALL Collected: 04/13/2018 Status: F Source: [place] 3:00 AM [facility] REPOSITORY TYPE CODE TESTS RESULT OUT OF REFERENCE UNITS RANGE LAB VPH 7.32-7.42 pH 7.36 LAB VPC2 42-55 mm Hg pCO2 55 LAB VPO2 35-45 mm Hg pO2 39 LAB VBE mmol/L Base Excess 4 LAB VHC3 24-28 mmol/L Bicarbonate High 30 LAB VC2C 25-29 mmol/L CO2 Content High 31 LAB O2HBCX 60-85 % Oxyhemoglobin, Javon. 68 LAB CO <2.0 % Carboxyhemoglobin,V 1.3 en LAB METHB 0.4-1.5 % Methemoglobin 1.1 LAB VTMP C Temperature, Body 37.0 LAB VPHTC 7.32-7.42 pH, Temp Corrected 7.36 LAB VPC2T mm Hg pCO2, Temp Correct 55 LAB VPO2T mm Hg pO2, Temp Corrected 39 LAB NAB 135-146 mmol/L Sodium,Whole Bld 138 LAB KWB 3.5-5.0 mmol/L Potassium, Whole Bld 4.3 LAB HGBB 13.0-17.0 g/dL Low Hemoglobin,Total,AC 7.5 L LAB HCTB 39.0-51.0 % Hematocrit, ACL Low 24 LAB IC 1.08-1.30 mmol/L Calcium, Ion, WB 1.20 LAB GLB 60-105 mg/dL Glucose,Whole Bld High 113 LAB LACT 0.5-2.2 mmol/L Lactate 0.9 Performed By: #### VALLBG #### [facility] [address] [place], [place] [address] GASA + ALL Collected: 04/13/2018 Status: F Source: [place] FOR 2:58 AM [facility] USE ONLY REPOSITORY TYPE CODE TESTS RESULT OUT OF REFERENCE UNITS RANGE LAB PH 7.35-7.45 pH 7.42 LAB PCO2 34-46 mm Hg pCO2 46 LAB PO2 85-95 mm Hg pO2 High 145 LAB BE mmol/L Base Excess 5 LAB HCO3 22-26 mmol/L Bicarbonate High 29 LAB CO2CT 22.0-28.0 mmol/L CO2 Content High 31 LAB O2HB 95-98 % Oxyhemoglobin, Art. 97 LAB COHB 0-5.0 % Carboxyhemoglobin,A 1.6 rt LAB MHGB 0.4-1.5 % Methemoglobin 1.0 LAB TEMP C Temperature, Body 37.0 LAB PHTC 7.35-7.45 pH, Temp Corrected 7.42 LAB PCO2T 34-46 mm Hg pCO2, Temp Correct 46 LAB PO2T mm Hg pO2, Temp Corrected 145 LAB NAB 135-146 mmol/L Sodium,Whole Bld 137 LAB KWB 3.5-5.0 mmol/L Potassium, Whole Bld 4.3 LAB HGBB 13.0-17.0 g/dL Low Hemoglobin,Total,AC 7.6 L LAB HCTB 39.0-51.0 % Hematocrit, ACL Low 24 LAB IC 1.08-1.30 mmol/L Calcium, Ion, WB 1.17 LAB GLB 60-105 mg/dL Glucose,Whole Bld High 112 LAB LACT 0.5-2.2 mmol/L Lactate 0.8 Performed By: #### ALLBG #### [facility] [address] [place], [place] [address] CBC Collected: 04/13/2018 Status: F Source: [place] 2:55 AM [facility] REPOSITORY TYPE CODE TESTS RESULT OUT OF REFERENCE UNITS RANGE LAB WBC 3.70-11.00 k/uL WBC High 15.13 LAB RBC 4.20-6.00 m/uL Low RBC 2.38 LAB HGB 13.0-17.0 g/dL Low Hemoglobin 7.5 LAB HCT 39.0-51.0 % Low Hematocrit 23.6 LAB MCV 80.0-100.0 fL MCV 99.2 LAB MCH 26.0-34.0 pG MCH 31.5 LAB MCHC 30.5-36.0 g/dL MCHC 31.8 LAB RDWCV 11.5-15.0 % RDW-CV 13.4 LAB PLTCT 150-400 k/uL Platelet Count 276 LAB MPV 9.0-12.7 fL MPV 10.4 LAB ABSNUC <0.01 k/uL Absolute nRBC <0.01 Performed By: #### CBC, CMP, COLTON #### [facility] [address] [place], [place] [address] COMP METABOLIC PANEL Collected: 04/13/2018 Status: F Source: [place] 2:55 AM [facility] REPOSITORY TYPE CODE TESTS RESULT OUT OF REFERENCE UNITS RANGE LAB TP 6.3-8.0 g/dL Low Protein, Total 5.5 LAB ALB 3.9-4.9 g/dL Low Albumin 3.8 LAB CA 8.5-10.2 mg/dL Calcium, Total 8.5 LAB TBIL 0.2-1.3 mg/dL Bilirubin, Total 0.6 LAB ALKP 36-108 U/L Low Alkaline Phosphatase 35 LAB AST 14-40 U/L AST 39 LAB GLU 74-99 mg/dL Glucose High 113 Result Comment: The [place] [employer] (ADA) provides guidance for cutoff values for fasting glucose and random glucose. The ADA defines fasting as no caloric intake for at least 8 hours. Fas ting plasma glucose results between 100 to 125 mg/dL indicate increased risk for diabetes (prediabetes). Fasting plasma glucose results greater than or equal to 126 mg/dL meet the criteria for diagnosis of diabetes. In the absence of unequivocal hyperglycemia, results should be confirmed by repeat testing. In a patient with classic symptoms of hyperglycemia or hyperglycemic crisis, random plasma glucose results greater than or equal to 200 mg/dL meet the criteria for diagnosis of diabetes. Reference: Standards of Medical Care in Diabetes 2016, [place] [employer]. Diabetes Care. 2016.39(Suppl 1). LAB BUN 9-24 mg/dL BUN 10 LAB CRET 0.73-1.22 mg/dL Creatinine 0.95 LAB NA 136-144 mmol/L Sodium 140 LAB K 3.7-5.1 mmol/L Potassium 4.5 LAB CL 97-105 mmol/L Chloride 101 LAB CO2 22-30 mmol/L CO2 26 LAB AGAP 9-18 mmol/L Anion Gap 13 LAB ALT 10-54 U/L ALT 38 LAB GFRAA eGFR- Amer. >60 LAB GFRNAA . eGFR-All Other Races >60 Result Comment: eGFR (Estimated GFR) Units of measure: mL/min/1.73 meters squared eGFR is derived from the reexpressed MDRD Study equation using the following parameters: serum creatinine, age, gender and race. The creatinine assay has been calibrated to be traceable to IDMS. An eGFR <60 mL/min/1.73m2 for >3 months is consistent with chronic kidney disease. Refer to KDOQI guidelines for clinical interpretation. In patients with unstable renal function, e.g. those with acute kidney injury, the eGFR may not accurately reflect actual GFR. Performed By: #### CBC, CMP, COLTON #### [facility] [address], [place] [address] TROPONIN T Collected: 04/13/2018 Status: F Source: [place]ER[place] 2:55 AM [facility] REPOSITORY TYPE CODE TESTS RESULT OUT OF REFERENCE UNITS RANGE LAB TROPT 0.000-0.029 ng/mL High Troponin T 0.274 Result Comment: Called to and read back by: Dorene Irwin 04/13/18 0523 Kamari Performed By: #### CBC, CMP, COLTON #### [facility] [address] [place], [place] [address] XR CHEST 1V FRONTAL Observed: 04/13/2018 Status: F Source: [place]ER[place] PORT 1:52 AM [facility] REPOSITORY * * *Final Report* * * DATE OF EXAM: Apr 13 2018 1:52AM JIX [id number] - XR CHEST 1V FRONTAL PORT / PROCEDURE REASON: Post-operative assessment * * * * Physician Interpretation * * * * EXAMINATION: CHEST RADIOGRAPH (PORTABLE SINGLE VIEW AP) Exam Date/Time: 04/13/2018 1:52 AM Clinical History: Post-operative assessment MQ: [id number] Comparison: 1 day prior RESULT: See impression. IMPRESSION: Lines, tubes, and devices: Endotracheal tube and NG/OG tube have been removed in the interval. Right IJ catheter, mediastinal drains, and a left thoracostomy tube are present. Patient is status post median sternotomy. Lungs and pleura: Shallow inspiration. Bibasilar opacities have increased and are likely due to a combination of small pleural effusions and atelectasis. There is vascular crowding without overt pulmonary edema. No substantial pneumothorax. Cardiomediastinal silhouette: Stable cardiomediastinal silhouette. Other: Gaseous distention of the stomach is noted. Animal Technician: PSCB Transcribe Date/Time: Apr 13 2018 7:05A Dictated by : FROYLAN FREEMAN MD This examination was interpreted and the report reviewed and electronically signed by: FROYLAN FREEMAN MD on Apr 13 2018 7:06AM EST [id number] GASV + ALL Collected: 04/13/2018 Status: F Source: [place] 12:50 AM [facility] REPOSITORY TYPE CODE TESTS RESULT OUT OF REFERENCE UNITS RANGE LAB VPH 7.32-7.42 pH 7.32 LAB VPC2 42-55 mm Hg pCO2 High 58 LAB VPO2 35-45 mm Hg pO2 42 LAB VBE mmol/L Base Excess 2 LAB VHC3 24-28 mmol/L Bicarbonate High 29 LAB VC2C 25-29 mmol/L CO2 Content High 30 LAB O2HBCX 60-85 % Oxyhemoglobin, Javon. 68 LAB CO <2.0 % Carboxyhemoglobin,V 1.2 en LAB METHB 0.4-1.5 % Methemoglobin 0.6 LAB VTMP C Temperature, Body 37.0 LAB VPHTC 7.32-7.42 pH, Temp Corrected 7.32 LAB VPC2T mm Hg pCO2, Temp Correct 58 LAB VPO2T mm Hg pO2, Temp Corrected 42 LAB NAB 135-146 mmol/L Sodium,Whole Bld 137 LAB KWB 3.5-5.0 mmol/L Potassium, Whole Bld 4.2 LAB HGBB 13.0-17.0 g/dL Low Hemoglobin,Total,AC 8.7 L LAB HCTB 39.0-51.0 % Hematocrit, ACL Low 27 LAB IC 1.08-1.30 mmol/L Calcium, Ion, WB 1.21 LAB GLB 60-105 mg/dL Glucose,Whole Bld High 144 LAB LACT 0.5-2.2 mmol/L Lactate 1.4 Performed By: #### VALLBG #### [facility] [address] [place], [place] [address] GASA + ALL Collected: 04/13/2018 Status: F Source: [place]ER[place] FOR 12:47 AM [facility] USE ONLY REPOSITORY TYPE CODE TESTS RESULT OUT OF REFERENCE UNITS RANGE LAB PH 7.35-7.45 pH 7.36 LAB PCO2 34-46 mm Hg pCO2 High 50 LAB PO2 85-95 mm Hg pO2 High 131 LAB BE mmol/L Base Excess 2 LAB HCO3 22-26 mmol/L Bicarbonate High 27 LAB CO2CT 22.0-28.0 mmol/L CO2 Content High 29 LAB O2HB 95-98 % Oxyhemoglobin, Art. 97 LAB COHB 0-5.0 % Carboxyhemoglobin,A 1.2 rt LAB MHGB 0.4-1.5 % Methemoglobin 0.6 LAB TEMP C Temperature, Body 37.0 LAB PHTC 7.35-7.45 pH, Temp Corrected 7.36 LAB PCO2T 34-46 mm Hg pCO2, Temp High Correct 50 LAB PO2T mm Hg pO2, Temp Corrected 131 LAB NAB 135-146 mmol/L Sodium,Whole Bld 137 LAB KWB 3.5-5.0 mmol/L Potassium, Whole Bld 4.3 LAB HGBB 13.0-17.0 g/dL Low Hemoglobin,Total,AC 8.9 L LAB HCTB 39.0-51.0 % Hematocrit, ACL Low 28 LAB IC 1.08-1.30 mmol/L Calcium, Ion, WB 1.22 LAB GLB 60-105 mg/dL Glucose,Whole Bld High 145 LAB LACT 0.5-2.2 mmol/L Lactate 1.2 Performed By: #### ALLBG #### [facility] [address] [place], [place] [address] PROGRESS Observed: 04/12/2018 Status: COMPLETED Source: [place]ER[place] 11:10 PM [facility] REPOSITORY HNO ID: [id number] Author: Roger Moura (Gantry Rigger) JAYE Theodore Service: (none) Author Type: Respiratory Therapist Type: Progress Notes Filed: 04/12/2018 11:10 PM Note Text: COMPUTER FORENSICS EXAMINER ware at bedside . Ok to extubate. GASA + ALL Collected: 04/12/2018 Status: F Source: [place]ER[place] FOR 11:02 PM [facility] USE ONLY REPOSITORY TYPE CODE TESTS RESULT OUT OF REFERENCE UNITS RANGE LAB PH 7.35-7.45 pH 7.36 LAB PCO2 34-46 mm Hg pCO2 High 48 LAB PO2 85-95 mm Hg pO2 High 173 LAB BE mmol/L Base Excess 1 LAB HCO3 22-26 mmol/L Bicarbonate High 27 LAB CO2CT 22.0-28.0 mmol/L CO2 Content 28 LAB O2HB 95-98 % Oxyhemoglobin, Art. 97 LAB COHB 0-5.0 % Carboxyhemoglobin,A 1.4 rt LAB MHGB 0.4-1.5 % Methemoglobin 1.2 LAB TEMP C Temperature, Body 37.0 LAB PHTC 7.35-7.45 pH, Temp Corrected 7.36 LAB PCO2T 34-46 mm Hg pCO2, Temp High Correct 48 LAB PO2T mm Hg pO2, Temp Corrected 173 LAB NAB 135-146 mmol/L Sodium,Whole Bld 136 LAB KWB 3.5-5.0 mmol/L Potassium, Whole Bld 4.1 LAB HGBB 13.0-17.0 g/dL Low Hemoglobin,Total,AC 8.5 L LAB HCTB 39.0-51.0 % Hematocrit, ACL Low 26 LAB IC 1.08-1.30 mmol/L Calcium, Ion, WB 1.21 LAB GLB 60-105 mg/dL Glucose,Whole Bld High 191 LAB LACT 0.5-2.2 mmol/L Lactate 1.9 Performed By: #### ALLBG #### [facility] [address] [place], [place] [address] GASA + ALL Collected: 04/12/2018 Status: F Source: [place] FOR 10:17 PM [facility] USE ONLY REPOSITORY TYPE CODE TESTS RESULT OUT OF REFERENCE UNITS RANGE LAB PH 7.35-7.45 pH 7.41 LAB PCO2 34-46 mm Hg pCO2 41 LAB PO2 85-95 mm Hg pO2 High 158 LAB BE mmol/L Base Excess 1 LAB HCO3 22-26 mmol/L Bicarbonate 26 LAB CO2CT 22.0-28.0 mmol/L CO2 Content 27 LAB O2HB 95-98 % Oxyhemoglobin, Art. 97 LAB COHB 0-5.0 % Carboxyhemoglobin,A 1.2 rt LAB MHGB 0.4-1.5 % Methemoglobin 1.0 LAB TEMP C Temperature, Body 37.0 LAB PHTC 7.35-7.45 pH, Temp Corrected 7.41 LAB PCO2T 34-46 mm Hg pCO2, Temp Correct 41 LAB PO2T mm Hg pO2, Temp Corrected 158 LAB NAB 135-146 mmol/L Sodium,Whole Bld 136 LAB KWB 3.5-5.0 mmol/L Potassium, Whole Bld 4.1 LAB HGBB 13.0-17.0 g/dL Low Hemoglobin,Total,AC 8.7 L LAB HCTB 39.0-51.0 % Hematocrit, ACL Low 27 LAB IC 1.08-1.30 mmol/L Calcium, Ion, WB 1.17 LAB GLB 60-105 mg/dL Glucose,Whole Bld High 222 LAB LACT 0.5-2.2 mmol/L Lactate 1.7 Performed By: #### ALLBG #### [facility] [address] [place], [place] [address] GASV + ALL Collected: 04/12/2018 Status: F Source: [place] 10:14 PM [facility] REPOSITORY TYPE CODE TESTS RESULT OUT OF REFERENCE UNITS RANGE LAB VPH 7.32-7.42 pH 7.35 LAB VPC2 42-55 mm Hg pCO2 51 LAB VPO2 35-45 mm Hg pO2 36 LAB VBE mmol/L Base Excess 2 LAB VHC3 24-28 mmol/L Bicarbonate 27 LAB VC2C 25-29 mmol/L CO2 Content 29 LAB O2HBCX 60-85 % Oxyhemoglobin, Javon. 61 LAB CO <2.0 % Carboxyhemoglobin,V 1.3 en LAB METHB 0.4-1.5 % Methemoglobin 1.3 LAB VTMP C Temperature, Body 37.0 LAB VPHTC 7.32-7.42 pH, Temp Corrected 7.35 LAB VPC2T mm Hg pCO2, Temp Correct 51 LAB VPO2T mm Hg pO2, Temp Corrected 36 LAB NAB 135-146 mmol/L Sodium,Whole Bld 135 LAB KWB 3.5-5.0 mmol/L Potassium, Whole Bld 4.1 LAB HGBB 13.0-17.0 g/dL Low Hemoglobin,Total,AC 8.4 L LAB HCTB 39.0-51.0 % Hematocrit, ACL Low 26 LAB IC 1.08-1.30 mmol/L Calcium, Ion, WB 1.16 LAB GLB 60-105 mg/dL Glucose,Whole Bld High 201 LAB LACT 0.5-2.2 mmol/L Lactate High 2.5 Performed By: #### VALLBG #### [facility] [address] [place], [place] [address] PROGRESS Observed: 04/12/2018 Status: COMPLETED Source: [place] 9:03 PM [facility] REPOSITORY HNO ID: [id number] Author: Pascual Ware Service: Critical Care Author Type: Nurse Practitioner Type: Progress Notes Filed: 04/12/2018 9:04 PM Note Text: [facility] Admission Note Name: Rick George JrJosh Principal Diagnosis: Coronary artery disease involving [place] coronary artery of [place] heart with unstable angina pectoris ([facility]) Indication for Surgery: Coronary Artery Disease LVEF: 57% RVF: Normal Important/Relevant PMH/PSH: CAD, NSTEMI, HTN, HLD, PAD/PVD, CVA (unknown residual) DM2. Preoperative Hospital Course (narrative): Transferred from OSH w/ NSTEMI. C. Diff positive at OSH, continue PO vanco. Procedure/Surgeries: 04/12/2018 CABGx3, MACK to LAD , SVG to PD pf CX , SVG to OM Airway Difficulty: Grade I - No special instrumentation OR Course: Uncomplicated Pacing wires: Yes: Ventricular: When discontinuing pacing wires: Pull all pacing wires Postoperative Course/General Impression: (narrative or log of major events with date of onset): Arrived to unit intubated and sedated. Cardiac insufficiency coming off CPB requiring epinephrine infusion, wean as able. Hypertensive on arrival to unit, NTG infusion started to maintain MAPs 65-75. IVF resuscitation as needed. Pain AND glucose control. Issues to communicate at signout: 04/12/2018 -WTE -C-Diff Discharge Planning: Anticipated Discharge Date: Unknown Unknown Care Management Discharge Needs: Needs Prior to Discharge: To Be Determined Additional Hospital Problems Problem Nstemi (Non-St Elevated Myocardial Infarction) ([facility]) 04/12/2018 s/p CABGx3, MACK to LAD , SVG to PD pf CX , SVG to OM Coronary Artery Disease Involving [place] Coronary Artery of [place] Heart With Unstable Angina Pectoris ([facility]) 04/12/2018 s/p CABGx3, MACK to LAD , SVG to PD pf CX , SVG to OM CAD Core Measures: Aspirin: Yes Beta blockers: No - due to not indicated at this time Statins: Reassess for Best Practices prior to hospital discharge On Mechanically Assisted Ventilation (Hcc) A/P: Grade I airway. WTE. Postoperative Hypertension A/P: Hypertensive postoperatively, NTG infusion started. Wean for MAPs 65-75. Cardiac Insufficiency (Hcc) A/P: Cardiac insufficiency coming off CPB requiring epinephrine infusion. Wean as able. Lower Back Pain A/P: on Neurontin and zanaflex preoperatively. Will restart once extubated and taking PO. C. Difficile Colitis A/P: C. Diff positive at OSH. Per ID recs, continue PO vancomycin. Post-Operative Pain A/P: Optimize pain control with IVP fentanyl AND lidocaine patches. Fentanyl ASPHALT ENGINEER AND PRN oxycodone once extubated. Hyperlipidemia A/P: Will start statin once extubated and taking PO. Stress Hyperglycemia A/P: Perioperative insulin resistance and exacerbation of hyperglycemia. Hx of DM 2 with neuropathy. RHI drip per CVICU nomogram. Infusions: Epinephrine, Nitroglycerin, Propofol CVICU Admission ECG: Reviewed CVICU Admission CXR: Reviewed Neuro: Sedated . Cardiovascular: Rhythm: regular rate and rhythm and Rate:normal sinus rhythm MAP: 70 mmHg Cardiac Index: 3.2 L/min/m2 Pacemaker : Temporary Epicardial - Pacing Mode: OFF ICD: No Peripheral pulses present: All present Pulmonary: Clear to auscultation and Breath sounds equal Ventilator: Intubated Potential prolonged intubation : No Abdominal: Soft, Non-tender and Bowel sounds no Continued need for urinary catheter: Yes - clinical indication: Patient post major surgery requiring fluid balance and input and output measurement. DAY OF SURGERY PLAN: Standard Protocol, intubated patient: Cardiovascular monitoring, stabilization of blood pressure and cardiac function, wean to extubate when ready per protocol. Pain control, glycemic control, DVT prophylaxis, antibiotic prophylaxis. SIGNATURE: Pascual Ware CNP DATE of SERVICE: 04/12/2018 TIME of SERVICE: 9:03 PM [facility] PCR Collected: 04/12/2018 Status: F Source: [place] 9:00 PM [facility] REPOSITORY TYPE CODE TESTS RESULT OUT OF RANGE REFERENCE UNITS LAB SASRC Nasal S aureus Spec Source LAB MRSRES Negative for MRSA MRSA by PCR. PCR LAB SARES Positive for Abnormal Staph Staphylococcus Alert aureus PCR aureus by PCR. Performed By: #### SAPCR #### [facility] [address] [place], [place] [address] GASV + ALL Collected: 04/12/2018 Status: F Source: [place] 8:51 PM [facility] REPOSITORY TYPE CODE TESTS RESULT OUT OF REFERENCE UNITS RANGE LAB VPH 7.32-7.42 pH 7.38 LAB VPC2 42-55 mm Hg pCO2 48 LAB VPO2 35-45 mm Hg pO2 40 LAB VBE mmol/L Base Excess 3 LAB VHC3 24-28 mmol/L Bicarbonate 28 LAB VC2C 25-29 mmol/L CO2 Content 29 LAB O2HBCX 60-85 % Oxyhemoglobin, Javon. 70 LAB CO <2.0 % Carboxyhemoglobin,V 0.9 en LAB METHB 0.4-1.5 % Methemoglobin 0.9 LAB VTMP C Temperature, Body 35.9 LAB VPHTC 7.32-7.42 pH, Temp Corrected 7.40 LAB VPC2T mm Hg pCO2, Temp Correct 45 LAB VPO2T mm Hg pO2, Temp Corrected 37 LAB NAB 135-146 mmol/L Sodium,Whole Bld 136 LAB KWB 3.5-5.0 mmol/L Potassium, Whole Bld 4.0 LAB HGBB 13.0-17.0 g/dL Low Hemoglobin,Total,AC 8.6 L LAB HCTB 39.0-51.0 % Hematocrit, ACL Low 27 LAB IC 1.08-1.30 mmol/L Calcium, Ion, WB 1.19 LAB GLB 60-105 mg/dL Glucose,Whole Bld High 191 LAB LACT 0.5-2.2 mmol/L Lactate High 2.6 Performed By: #### VALLBG #### [facility] [address] [place], [place] [address] XR CHEST 1V FRONTAL Observed: 04/12/2018 Status: F Source: [facility] 8:33 PM [facility] REPOSITORY * * *Final Report* * * DATE OF EXAM: Apr 12 2018 8:33PM JIX [id number] - XR CHEST 1V FRONTAL PORT / PROCEDURE REASON: Post-operative assessment * * * * Physician Interpretation * * * * EXAMINATION: CHEST RADIOGRAPH (PORTABLE SINGLE VIEW AP) Exam Date/Time: 04/12/2018 8:33 PM Clinical History: Post-operative assessment MQ: [id number] Comparison: 04/04/2018 RESULT: See impression. IMPRESSION: Lines, tubes, and devices: The patient has had median sternotomy in the interim between the 2 exams. Support devices are unremarkable. Lungs and pleura: Mild increase of perihilar and basilar atelectasis. Slight improvement of perihilar interstitial edema. Right hemidiaphragm remains elevated. No pleural effusion. Cardiomediastinal silhouette: Stable cardiomediastinal silhouette. Other: . Animal Technician: KAYE Transcribe Date/Time: Apr 12 2018 8:48P Dictated by : JODY HDZ MD This examination was interpreted and the report reviewed and electronically signed by: JODY HDZ MD on Apr 12 2018 8:49PM EST [id number] CBC Collected: 04/12/2018 Status: F Source: [place] 8:30 PM [facility] REPOSITORY TYPE CODE TESTS RESULT OUT OF REFERENCE UNITS RANGE LAB WBC 3.70-11.00 k/uL WBC High 22.21 LAB RBC 4.20-6.00 m/uL Low RBC 2.68 LAB HGB 13.0-17.0 g/dL Low Hemoglobin 8.5 LAB HCT 39.0-51.0 % Low Hematocrit 26.0 LAB MCV 80.0-100.0 fL MCV 97.0 LAB MCH 26.0-34.0 pG MCH 31.7 LAB MCHC 30.5-36.0 g/dL MCHC 32.7 LAB RDWCV 11.5-15.0 % RDW-CV 13.3 LAB PLTCT 150-400 k/uL Platelet Count 335 LAB MPV 9.0-12.7 fL MPV 10.0 LAB ABSNUC <0.01 k/uL Absolute nRBC <0.01 Performed By: #### CBC, FIBCT, PT, PTT #### [facility] [address] [address] FIBRINOGEN Collected: 04/12/2018 Status: F Source: [place] 8:30 PM [facility] REPOSITORY TYPE CODE TESTS RESULT OUT OF REFERENCE UNITS RANGE LAB FIBCT 200-400 mg/dL Fibrinogen 208 Performed By: #### CBC, FIBCT, PT, PTT #### [facility] [address] [address] PROTIME Collected: 04/12/2018 Status: F Source: [place] 8:30 PM [facility] REPOSITORY TYPE CODE TESTS RESULT OUT OF RANGE REFERENCE UNITS LAB PSEC 9.7-13.0 sec PT Sec 12.4 LAB INR 0.9-1.3 PT INR 1.2 Result Comment: Vitamin K Antagonist (VKA) Therapeutic Range: INR 2 to 3 (Target INR of 2.5) Note: For patients treated with VKA drugs, such as warfarin, the [employer] 2012 Guideline recommends a therapeutic INR range of 2 to 3 (target INR of 2.5). This recommendation includes high-risk patients with antiphospholipid syndrome with previous arterial or venous thromboembolism, current-generation mechanical or bioprosthetic aortic heart valve replacement. Note: Patients with mechanical aortic valve replacement and additional risk factors for thromboembolic events (atrial fibrillation, previous thromboembolism, LV dysfunction, hypercoagulable conditions) or an older generation mechanical AVR (i.e., ball in-Cage) or any mechanical MVR should have a INR therapeutic range of 2.5 to 3.5 (target INR of 3). Michael GH, et al. Chest 2012, 141:7S-47S David RA, et al. [facility] 2017, 70: 252-289 Performed By: #### CBC, FIBCT, PT, PTT #### [facility] [address] [place], [place] [address] APTT Collected: 04/12/2018 Status: F Source: [place] 8:30 PM [facility] REPOSITORY TYPE CODE TESTS RESULT OUT OF RANGE REFERENCE UNITS LAB APTT 23.0-32.4 sec APTT 26.0 Result Comment: Unfractionated Heparin Therapeutic Ranges: Standard Heparin Nomogram: 53 to 78 seconds (anti-Xa level of 0.3 to 0.7 U/ml) Low Dose/ACS Nomogram: 49 to 67 seconds (anti-Xa level of 0.2 to 0.5 U/ml) Stroke Treatment Nomogram: 49 to 67 seconds (anti-Xa level of 0.2 to 0.5 U/ml) Note: The APTT therapeutic range has been determined for the current lot of laboratory APTT reagent in use throughout the [facility]. Performed By: #### CBC, FIBCT, PT, PTT #### [facility] [address] [place], [place] [address] ANES POST Observed: 04/12/2018 Status: COMPLETED Source: [place] 8:24 PM [facility] REPOSITORY HNO ID: [id number] Author: Sergio De MD Service: Anesthesiology Author Type: Anesthesiologist Type: Anesthesia PostOp Filed: 04/12/2018 8:25 PM Note Text: POST ANESTHESIA EVALUATION NOTE SERVICE DATE: 04/12/2018 SERVICE TIME: 8:25 PM : 1960 Vitals: 04/11/18 2258 04/12/18 0359 04/12/18 0700 04/12/18 1100 Temp: 36.8 ?C (98.2 ?F) 36.5 ?C (97.7 ?F) 36.6 ?C (97.9 ?F) 36.6 ?C (97.9 ?F) 04/12/18 0359 04/12/18 0704/12/18109904/12/182011 Arterial BP 1: 102/54 BP: 113/62 108/69 98/60 04/12/18 0700 04/12/18 1100 04/12/18201104/12/182014 Pulse: 75 67 84 85 04/12/1835804/12/1869904/12/18109904/12/182014 Resp: 14 17 18 18 04/12/1869904/12/18109904/12/18201104/12/182014 SpO2: 94% 96% 100% 100% Validated Vital Signs: HR: 77; BP: 100/55; RR: 16; SpO2%: 100%; Temperature: 36.7 POST ANES STATUS: PACU/ICU Patient Condition: Stable Neurological Status: On intravenous sedation. Pulmonary Status: On invasive mechanical ventilation. Airway Control: Intubated on mechanical ventilation. Cardiovascular Status: Stable Pain: Adequately controlled Postoperative Nausea/Vomiting: No significant post operative nausea or vomiting Postoperative Hydration Status: Adequate. Anesthetic Complications: None Recommendation: Continue current plan of care and Further care per PACU/ICU/Floor team Other Remarks: SIGNATURE: Sergio De MD PATIENT NAME: Rick George Jr. DATE: April 12, 2018 TIME: 8:24 PM PAGER/CONTACT #: [id number] GASA + ALL Collected: 04/12/2018 Status: F Source: [place] FOR 8:22 PM [facility] USE ONLY REPOSITORY TYPE CODE TESTS RESULT OUT OF REFERENCE UNITS RANGE LAB PH 7.35-7.45 pH High 7.48 LAB PCO2 34-46 mm Hg pCO2 35 LAB PO2 85-95 mm Hg pO2 High 168 LAB BE mmol/L Base Excess 2 LAB HCO3 22-26 mmol/L Bicarbonate 26 LAB CO2CT 22.0-28.0 mmol/L CO2 Content 27 LAB O2HB 95-98 % Oxyhemoglobin, Art. 98 LAB COHB 0-5.0 % Carboxyhemoglobin,A 1.7 rt LAB MHGB 0.4-1.5 % Methemoglobin Low 0.2 LAB TEMP C Temperature, Body 37.0 LAB PHTC 7.35-7.45 pH, Temp High Corrected 7.48 LAB PCO2T 34-46 mm Hg pCO2, Temp Correct 35 LAB PO2T mm Hg pO2, Temp Corrected 168 LAB NAB 135-146 mmol/L Sodium,Whole Bld 136 LAB KWB 3.5-5.0 mmol/L Potassium, Whole Bld 3.8 LAB HGBB 13.0-17.0 g/dL Low Hemoglobin,Total,AC 8.6 L LAB HCTB 39.0-51.0 % Hematocrit, ACL Low 27 LAB IC 1.08-1.30 mmol/L Calcium, Ion, WB 1.18 LAB GLB 60-105 mg/dL Glucose,Whole Bld High 178 LAB LACT 0.5-2.2 mmol/L Lactate 1.8 Performed By: #### ALLBG #### [facility] [address] [place] [address] ECG COMPLETE W Observed: 04/12/2018 Status: F Source: [place] INTERPRETATION 8:15 PM [facility] REPOSITORY NAME : RICK GEORGE PID : [id number] : 1960 Gender : Male Race : ORD : [id number] Procedure Date : Apr 12 2018 20:15:55 Edit Date : Apr 16 2018 15:00:22 Diagnosis:NORMAL SINUS RHYTHM LOW VOLTAGE QRS, CONSIDER PULMONARY DISEASE, PERICARDIAL EFFUSION, OR NORMAL VARIANT NONSPECIFIC T WAVE ABNORMALITY ABNORMAL ECG Confirmed by Carlos Powers ([id number]) on 04/16/2018 3:00:15 PM Ventricular Rate : 86 BPM Atrial Rate : 86 BPM P-R Interval : 176 ms QRS Duration : 78 ms Q-T Interval : 380 ms QTC Calculation(Bezet) : 454 ms P [place] : 53 degrees R [place] : 8 degrees T [place] : -11 degrees Test Reason : CAD Location : 367 : [id number] Overread By : Carlos Powers Edited By : Carlos Powers Referred By : , Acquired by : [id number], BRIEF OP NOT Observed: 04/12/2018 Status: COMPLETED Source: [place] 7:53 PM [facility] REPOSITORY HNO ID: [id number] Author: Dee Duke (Fel) Service: Cardiac Surgery Author Type: Fellow Type: Brief Op Note Filed: 04/12/2018 7:54 PM Note Text: CARDIOTHORACIC BRIEF OP NOTE LOG ID: [id number] SURGERY/PROCEDURE DATE: 04/12/2018 INCISION/PROCEDURE START TIME: 3:02 PM INCISION CLOSE/PROCEDURE END TIME: SURGEON(S) AND KNOCKOUT MACHINE OPERATOR(S): Surgeon(s) and Role: * Sammy Zhu - Primary * Dee Kenyon) Srikanth - Fellow Registered Nurse Box Puller: Andres (Rn) Franchesca RN; Ralph (Alarm Installer) AARON Vargas; Roberta (Rn) LIN Cain PROCEDURES AND ANESTHESIA: Procedure(s) and Anesthesia Type: * BYPASS GRAFT ARTERY CORONARY ON-PUMP USING VENOUS GRAFT(S) AND ARTERIAL GRAFT(S) SINGLE VEIN GRAFT - General MACK to LAD , SVG to PD pf CX , SVG to OM , V wires to be pulled . 2 mediastinal drains ANESTHESIA: General BRIEF FINDINGS: CAD PREOPERATIVE DIAGNOSIS: coronary artery disease POSTOPERATIVE DIAGNOSIS: coronary artery disease ESTIMATED BLOOD LOSS: 250 ml SPECIMENS: None COMPLICATIONS: None SIGNATURE: Dee Duke MD PATIENT NAME: Rick George Jr. DATE: April 12, 2018 TIME: 7:53 PM PAGER/CONTACT #: [email or web address] + ALL Collected: 04/12/2018 Status: F Source: [place] FOR 7:44 PM [facility] RADIANCE USE ONLY REPOSITORY TYPE CODE TESTS RESULT OUT OF REFERENCE UNITS RANGE LAB PH 7.35-7.45 pH High 7.47 LAB PCO2 34-46 mm Hg pCO2 38 LAB PO2 85-95 mm Hg pO2 High 300 LAB BE mmol/L Base Excess 4 LAB HCO3 22-26 mmol/L Bicarbonate High 27 LAB CO2CT 22.0-28.0 mmol/L CO2 Content 28 LAB O2HB 95-98 % Oxyhemoglobin, Art. 97 LAB COHB 0-5.0 % Carboxyhemoglobin,A 1.8 rt LAB MHGB 0.4-1.5 % Methemoglobin 1.2 LAB TEMP C Temperature, Body 37.0 LAB PHTC 7.35-7.45 pH, Temp High Corrected 7.47 LAB PCO2T 34-46 mm Hg pCO2, Temp Correct 38 LAB PO2T mm Hg pO2, Temp Corrected 300 LAB NAB 135-146 mmol/L Sodium,Whole Bld Low 133 LAB KWB 3.5-5.0 mmol/L Potassium, Whole Bld 3.6 LAB HGBB 13.0-17.0 g/dL Low Hemoglobin,Total,AC 8.8 L LAB HCTB 39.0-51.0 % Hematocrit, ACL Low 27 LAB IC 1.08-1.30 mmol/L Calcium, Ion, WB 1.13 LAB GLB 60-105 mg/dL Glucose,Whole Bld High 183 LAB LACT 0.5-2.2 mmol/L Lactate High 2.3 Performed By: #### ALLBG #### [facility] [address] [place], [place] [address] GASA + ALL Collected: 04/12/2018 Status: F Source: [place] FOR 7:07 PM [facility] USE ONLY REPOSITORY TYPE CODE TESTS RESULT OUT OF REFERENCE UNITS RANGE LAB PH 7.35-7.45 pH 7.45 LAB PCO2 34-46 mm Hg pCO2 38 LAB PO2 85-95 mm Hg pO2 High 328 LAB BE mmol/L Base Excess 2 LAB HCO3 22-26 mmol/L Bicarbonate 26 LAB CO2CT 22.0-28.0 mmol/L CO2 Content 27 LAB O2HB 95-98 % Oxyhemoglobin, Art. 98 LAB COHB 0-5.0 % Carboxyhemoglobin,A 0.9 rt LAB MHGB 0.4-1.5 % Methemoglobin 0.7 LAB TEMP C Temperature, Body 37.0 LAB PHTC 7.35-7.45 pH, Temp Corrected 7.45 LAB PCO2T 34-46 mm Hg pCO2, Temp Correct 38 LAB PO2T mm Hg pO2, Temp Corrected 328 LAB NAB 135-146 mmol/L Sodium,Whole Bld 136 LAB KWB 3.5-5.0 mmol/L Potassium, Whole Bld 3.6 LAB HGBB 13.0-17.0 g/dL Low Hemoglobin,Total,AC 9.3 L LAB HCTB 39.0-51.0 % Hematocrit, ACL Low 29 LAB IC 1.08-1.30 mmol/L Calcium, Ion, WB 1.18 LAB GLB 60-105 mg/dL Glucose,Whole Bld High 215 LAB LACT 0.5-2.2 mmol/L Lactate High 2.6 Performed By: #### ALLBG #### [facility] [address] [place], [place] [address] GASA + ALL Collected: 04/12/2018 Status: F Source: [place] FOR 6:45 PM [facility] USE ONLY REPOSITORY TYPE CODE TESTS RESULT OUT OF REFERENCE UNITS RANGE LAB PH 7.35-7.45 pH High 7.46 LAB PCO2 34-46 mm Hg pCO2 38 LAB PO2 85-95 mm Hg pO2 High 332 LAB BE mmol/L Base Excess 3 LAB HCO3 22-26 mmol/L Bicarbonate 26 LAB CO2CT 22.0-28.0 mmol/L CO2 Content 28 LAB O2HB 95-98 % Oxyhemoglobin, Art. 97 LAB COHB 0-5.0 % Carboxyhemoglobin,A 1.5 rt LAB MHGB 0.4-1.5 % Methemoglobin 1.2 LAB TEMP C Temperature, Body 37.0 LAB PHTC 7.35-7.45 pH, Temp High Corrected 7.46 LAB PCO2T 34-46 mm Hg pCO2, Temp Correct 38 LAB PO2T mm Hg pO2, Temp Corrected 332 LAB NAB 135-146 mmol/L Sodium,Whole Bld Low 134 LAB KWB 3.5-5.0 mmol/L Potassium, Whole Bld 3.8 LAB HGBB 13.0-17.0 g/dL Low Hemoglobin,Total,AC 8.6 L LAB HCTB 39.0-51.0 % Hematocrit, ACL Low 27 LAB IC 1.08-1.30 mmol/L Calcium, Ion, WB 1.20 LAB GLB 60-105 mg/dL Glucose,Whole Bld High 227 LAB LACT 0.5-2.2 mmol/L Lactate High 2.7 Performed By: #### ALLBG #### [facility] [address] [place], [place] [address] GASA + ALL Collected: 04/12/2018 Status: F Source: [place] FOR 6:17 PM [facility] USE ONLY REPOSITORY TYPE CODE TESTS RESULT OUT OF REFERENCE UNITS RANGE LAB PH 7.35-7.45 pH 7.39 LAB PCO2 34-46 mm Hg pCO2 High 48 LAB PO2 85-95 mm Hg pO2 High 277 LAB BE mmol/L Base Excess 4 LAB HCO3 22-26 mmol/L Bicarbonate High 28 LAB CO2CT 22.0-28.0 mmol/L CO2 Content High 30 LAB O2HB 95-98 % Oxyhemoglobin, Art. 97 LAB COHB 0-5.0 % Carboxyhemoglobin,A 1.4 rt LAB MHGB 0.4-1.5 % Methemoglobin 1.2 LAB TEMP C Temperature, Body 37.0 LAB PHTC 7.35-7.45 pH, Temp Corrected 7.39 LAB PCO2T 34-46 mm Hg pCO2, Temp High Correct 48 LAB PO2T mm Hg pO2, Temp Corrected 277 LAB NAB 135-146 mmol/L Sodium,Whole Bld Low 131 LAB KWB 3.5-5.0 mmol/L Potassium, Whole Bld 5.0 LAB HGBB 13.0-17.0 g/dL Low Hemoglobin,Total,AC 8.6 L LAB HCTB 39.0-51.0 % Hematocrit, ACL Low 27 LAB IC 1.08-1.30 mmol/L Calcium, Ion, WB 1.10 LAB GLB 60-105 mg/dL Glucose,Whole Bld High 268 LAB LACT 0.5-2.2 mmol/L Lactate 1.3 Performed By: #### ALLBG #### [facility] [address] [place], [place] [address] GASA + ALL Collected: 04/12/2018 Status: F Source: [place] FOR 5:41 PM [facility] [place] [facility] USE ONLY REPOSITORY TYPE CODE TESTS RESULT OUT OF REFERENCE UNITS RANGE LAB PH 7.35-7.45 pH 7.44 LAB PCO2 34-46 mm Hg pCO2 42 LAB PO2 85-95 mm Hg pO2 High 275 LAB BE mmol/L Base Excess 4 LAB HCO3 22-26 mmol/L Bicarbonate High 28 LAB CO2CT 22.0-28.0 mmol/L CO2 Content High 29 LAB O2HB 95-98 % Oxyhemoglobin, Art. 98 LAB COHB 0-5.0 % Carboxyhemoglobin,A 1.6 rt LAB MHGB 0.4-1.5 % Methemoglobin 0.5 LAB TEMP C Temperature, Body 37.0 LAB PHTC 7.35-7.45 pH, Temp Corrected 7.44 LAB PCO2T 34-46 mm Hg pCO2, Temp Correct 42 LAB PO2T mm Hg pO2, Temp Corrected 275 LAB NAB 135-146 mmol/L Sodium,Whole Bld Low 132 LAB KWB 3.5-5.0 mmol/L Potassium, Whole High Bld 5.4 LAB HGBB 13.0-17.0 g/dL Low Hemoglobin,Total,AC 8.6 L LAB HCTB 39.0-51.0 % Hematocrit, ACL Low 27 LAB IC 1.08-1.30 mmol/L Calcium, Ion, WB 1.10 LAB GLB 60-105 mg/dL Glucose,Whole Bld High 214 LAB LACT 0.5-2.2 mmol/L Lactate 0.9 Performed By: #### ALLBG #### [facility] [address] [place] [address] GASV + ALL Collected: 04/12/2018 Status: F Source: [place] 5:10 PM [facility] REPOSITORY TYPE CODE TESTS RESULT OUT OF REFERENCE UNITS RANGE LAB VPH 7.32-7.42 pH High 7.46 LAB VPC2 42-55 mm Hg pCO2 43 LAB VPO2 35-45 mm Hg pO2 44 LAB VBE mmol/L Base Excess 6 LAB VHC3 24-28 mmol/L Bicarbonate High 30 LAB VC2C 25-29 mmol/L CO2 Content High 31 LAB O2HBCX 60-85 % Oxyhemoglobin, Javon. 79 LAB CO <2.0 % Carboxyhemoglobin,V 1.8 en LAB METHB 0.4-1.5 % Methemoglobin 1.1 LAB VTMP C Temperature, Body 37.0 LAB VPHTC 7.32-7.42 pH, Temp High Corrected 7.46 LAB VPC2T mm Hg pCO2, Temp Correct 43 LAB VPO2T mm Hg pO2, Temp Corrected 44 LAB NAB 135-146 mmol/L Sodium,Whole Bld Low 133 LAB KWB 3.5-5.0 mmol/L Potassium, Whole Bld 4.9 LAB HGBB 13.0-17.0 g/dL Low Hemoglobin,Total,AC 9.0 L LAB HCTB 39.0-51.0 % Hematocrit, ACL Low 28 LAB IC 1.08-1.30 mmol/L Calcium, Ion, WB 1.10 LAB GLB 60-105 mg/dL Glucose,Whole Bld High 175 LAB LACT 0.5-2.2 mmol/L Lactate 1.0 Performed By: #### VALLBG #### [facility] [employer] [address] [place], [place] [address] GASA + ALL Collected: 04/12/2018 Status: F Source: [place] FOR 5:07 PM [facility] RAD[facility] USE ONLY REPOSITORY TYPE CODE TESTS RESULT OUT OF REFERENCE UNITS RANGE LAB PH 7.35-7.45 pH High 7.51 LAB PCO2 34-46 mm Hg pCO2 35 LAB PO2 85-95 mm Hg pO2 High 278 LAB BE mmol/L Base Excess 5 LAB HCO3 22-26 mmol/L Bicarbonate High 28 LAB CO2CT 22.0-28.0 mmol/L CO2 Content High 29 LAB O2HB 95-98 % Oxyhemoglobin, High Art. 99 LAB COHB 0-5.0 % Carboxyhemoglobin,A 1.0 rt LAB MHGB 0.4-1.5 % Methemoglobin Low 0.2 LAB TEMP C Temperature, Body 37.0 LAB PHTC 7.35-7.45 pH, Temp High Corrected 7.51 LAB PCO2T 34-46 mm Hg pCO2, Temp Correct 35 LAB PO2T mm Hg pO2, Temp Corrected 278 LAB NAB 135-146 mmol/L Sodium,Whole Bld Low 134 LAB KWB 3.5-5.0 mmol/L Potassium, Whole Bld 4.9 LAB HGBB 13.0-17.0 g/dL Low Hemoglobin,Total,AC 8.8 L LAB HCTB 39.0-51.0 % Hematocrit, ACL Low 27 LAB IC 1.08-1.30 mmol/L Calcium, Ion, WB 1.12 LAB GLB 60-105 mg/dL Glucose,Whole Bld High 172 LAB LACT 0.5-2.2 mmol/L Lactate 0.9 Performed By: #### ALLBG #### [facility] [address] [place], [place] [address] GASA + ALL Collected: 04/12/2018 Status: F Source: [place] FOR 2:27 PM [facility] USE ONLY REPOSITORY TYPE CODE TESTS RESULT OUT OF REFERENCE UNITS RANGE LAB PH 7.35-7.45 pH 7.36 LAB PCO2 34-46 mm Hg pCO2 High 52 LAB PO2 85-95 mm Hg pO2 Low 73 LAB BE mmol/L Base Excess 3 LAB HCO3 22-26 mmol/L Bicarbonate High 29 LAB CO2CT 22.0-28.0 mmol/L CO2 Content High 31 LAB O2HB 95-98 % Oxyhemoglobin, Low Art. 92 LAB COHB 0-5.0 % Carboxyhemoglobin, 1.1 Art LAB MHGB 0.4-1.5 % Methemoglobin 0.8 LAB TEMP C Temperature, Body 37.0 LAB PHTC 7.35-7.45 pH, Temp Corrected 7.36 LAB PCO2T 34-46 mm Hg pCO2, Temp High Correct 52 LAB PO2T mm Hg pO2, Temp Corrected 73 LAB NAB 135-146 mmol/L Sodium,Whole Bld 139 LAB KWB 3.5-5.0 mmol/L Potassium, Whole Bld 4.5 LAB HGBB 13.0-17.0 g/dL Low Hemoglobin,Total,A 12.3 CL LAB HCTB 39.0-51.0 % Hematocrit, Low ACL 38 LAB IC 1.08-1.30 mmol/L Calcium, Ion, WB 1.26 LAB GLB 60-105 mg/dL Glucose,Whole High Bld 126 LAB LACT 0.5-2.2 mmol/L Lactate 0.6 LAB ACBDTE Notify Date, Art [id number] LAB ACBTME Notify Time, Art Performed By: #### ALLBG #### [facility] [address] [place], [place] [address] PROGRESS Observed: 04/12/2018 Status: COMPLETED Source: [place] 1:07 PM [facility] REPOSITORY HNO ID: [id number] Author: Zoe Rodriguez Service: Cardiovascular Medicine Author Type: Physician Type: Progress Notes Filed: 04/12/2018 1:41 PM Note Text: [facility] CARDI[facility]ULAR [facility]ICINE PROGRESS NOTE (Template ID [id number]) Rick George Jr. [id number] PRIMARY SERVICE: [facility] Clinical Cardiology A HOSPITAL DAY: # 8 INTERVAL HISTORY NAEO, no new complaints Ready for Surgery at Noon PHYSICAL EXAM BP 98/60 Pulse 67 Temp 36.6 ?C (97.9 ?F) (Oral) Resp 18 Ht 177.8 cm (5' 10) Wt 88.5 kg (195 lb 1.6 oz) SpO2 96% BMI 27.99 kg/m? Intake/Output Summary (Last 24 hours) at 04/12/18 1307 Last data filed at 04/11/18 2312 Gross per 24 hour Intake 590 ml Output 1590 ml Net -1000 ml General Appearance: Well developed, Well nourished , NAD HEENT: PERRLA, EOM's intact, Sclera anicteric, Fair dentition and JVD - no Lungs: CTAB no crackles today Heart: Regular rate AND rhythm, nml S1, S2, no m/r/g Abdomen: Soft, Non-tender and Bowel sounds present Skin: Warm and Dry Musculoskeletal: no LE edema Neurologic/Psychiatric: Oriented to time, place AND person MEDICATIONS Current hospital medications: insulin lispro injection (rapid acting) (HumaLOG) SUBCUTANEOUS w MEALS insulin lispro injection (rapid acting) (HumaLOG) SUBCUTANEOUS AT BEDTIME insulin glargine 5 Units pen (long acting) (LANTUS SOLOSTAR, BASAGLAR KWIKPEN) 5 Units SUBCUTANEOUS DAILY (8 AM) Chlorhexidine Gluconate 0.12 % 15 mL (PERIDEX) 15 mL ORAL q 12 H 0.9% NaCl 3-5 mL 3-5 mL INTRAVENOUS q 12 H benzonatate 100 mg cap(s) (TESSALON PERLE) 100 mg ORAL TID traMADol 50 mg tab(s) (ULTRAM) 50 mg ORAL q 6 H PRN gabapentin 800 mg tab(s) (NEURONTIN) 800 mg ORAL TID cetirizine 10 mg tab(s) (ZyrTEC) 10 mg ORAL DAILY vancomycin 125 mg oral liquid (VANCOCIN) 125 mg ORAL QID nortriptyline 50 mg cap(s) (PAMELOR) 50 mg ORAL AT BEDTIME tiZANidine 4 mg tab(s) (ZANAFLEX) 4 mg ORAL TID PRN dextrose 40 % 15 g 15 g ORAL PRN glucagon 1 mg injection (GLUCAGEN) 1 mg INTRAMUSCULAR PRN dextrose 50% in water 25 mL syringe 12.5 g INTRAVENOUS PRN carvedilol 6.25 mg tab(s) (COREG) 6.25 mg ORAL BID w MEALS aspirin 81 mg chewable tab(s) 81 mg ORAL DAILY rosuvastatin 20 mg tab(s) (CRESTOR) 20 mg ORAL AT BEDTIME DATA Recent Labs 04/05/18 0531 04/04/18 0158 04/04/18 0008 WBC 11.15* 14.34* 17.22* HB 11.3* 10.8* 6.0* HCT 34.5* 33.6* 19.1* PLT 267 257 350 Recent Labs 04/05/18 0531 04/04/18 0008 NA 138 139 K 3.9 3.7 CO2 23 23 BUN 15 25* CREAT 0.79 0.95 GLUC 107* 130* MG -- 1.9 IMAGING Reviewed ASSESSMENT AND PLAN Rick George Jr. is a 57 year old male w PMH of DM2 c/b neuropathy, HTN, HLD, PAD/PVD, and CVA who presented for evaluation for PCI vs CABG after an NSTEMI on 04/01/18. Pt has multivessel dz and DM2 so will likely go for CABG, however patient has at least one active infection, Cdiff and possible PNA. Will start CAD Rxs, prep for CABG, and treat/work up infections. PLAN FOR TODAY - CABG today - Pt will TF to CTS service Neuro #Peripheral Neuropathy 2/2 DM2 Mild numbness in feet b/l Plan Cont Gabapentin ? CV #NSTEMI in s/o 3VDz Tn peak 6, BNP ~600 Had J point elevations on ECG yesterday, stable today Plan CABG w/u complete, accepted by [facility] for surgery. Date depending on necessary treatement duraiton for c diff Colton given J point elevation ? #CAD LMT 25% LAD Prox 85%, Dist 75% LCX Prox 75%, Dist 85% RCA 95% Plan ASA Hold Brillinta for upcoming CABG No heparin gtt given last CP on Tuesday, no current CP Coreg lisinopril Rosuvastatin. No signs of myopathy ? #HTN Plan Coreg lisinopril ? Pulmonary #pulmonary edema - resolved ? GI #Cdiff Pos test at OSH, pt received Flagyl Some improvement in frequency of diarrhea on Flagyl Plan Vancomycin tx length 10 days ? Endocrine #DM2 A1c ~6, c/b neuropathy Plan SSI Insulin ? Renal #polyuria - over 3L UOP yesterday - glucose well controlled, no JUAN, no uremia, no mannitol. IVF have been held PLAN - urine osmoles Diet Hrt Healthy 2g Na - NPO at midnight DVT ppx - heparin sq GI ppx - not indicated Case to be discussed with staff [place] Paul MD PGY1 [place] [id number] [facility] STAFF PHYSICIAN NOTE OF PERSONAL INVOLVEMENT IN CARE Impression/Plan: Mr. George is a 57 yo with SNTEMI found to have severe multivessel CAD, being treated for CDiff (improved symptoms, cleared by ID for surgery), doing well. Scheduled for CABG later today. I have reviewed the documentation obtained and documented by the Fellow/Resident/COMPUTER FORENSICS EXAMINER/PA and have reviewed and updated the problem list as appropriate. I have personally performed a face to face assessment of the patient and have personally participated in the rubi components. I have discussed the case and management of the patient's care. STAFF PHYSICIAN: Zoe Rodriguez MD Date of Service: 04/12/18 URINALYSIS Collected: 04/12/2018 Status: F Source: GERALDINE 8:05 AM [facility] REPOSITORY TYPE CODE TESTS RESULT OUT OF REFERENCE UNITS RANGE LAB UCOL Yellow Color Yellow LAB [facility] Clear Clarity Clear LAB UGLUC Negative mg/dL Glucose, Urine Negative LAB UBIL Negative Bilirubin, Urine Negative LAB UKET Negative Ketones, Urine Negative LAB USPG 1.005-1.030 Specific [place], Ur 1.010 LAB UHGB Negative Hemoglobin/Blood, Negative Ur LAB UPH 4.5-8.0 pH 6.0 LAB UPROT Negative mg/dL Protein, Urine Negative LAB UUROB Normal Urobilinogen Normal LAB UNITR Negative Nitrites Negative LAB ULKEST Negative Leukest Negative LAB UCOM Comments SEE COMMENT Result Comment: Microscopic not warranted LAB UMCOM Urine SEE Ap Comment COMMENT Result Comment: N/A Performed By: #### UA #### [facility] [address], [place] [address] PROTIME Collected: 04/12/2018 Status: F Source: GERALDINE 3:48 AM [facility] REPOSITORY TYPE CODE TESTS RESULT OUT OF RANGE REFERENCE UNITS LAB PSEC 9.7-13.0 sec PT Sec 10.8 LAB INR 0.9-1.3 PT INR 1.0 Result Comment: Vitamin K Antagonist (VKA) Therapeutic Range: INR 2 to 3 (Target INR of 2.5) Note: For patients treated with VKA drugs, such as warfarin, the [place] [employer] 2012 Guideline recommends a therapeutic INR range of 2 to 3 (target INR of 2.5). This recommendation includes high-risk patients with antiphospholipid syndrome with previous arterial or venous thromboembolism, current-generation mechanical or bioprosthetic aortic heart valve replacement. Note: Patients with mechanical aortic valve replacement and additional risk factors for thromboembolic events (atrial fibrillation, previous thromboembolism, LV dysfunction, hypercoagulable conditions) or an older generation mechanical AVR (i.e., ball in-Cage) or any mechanical MVR should have a INR therapeutic range of 2.5 to 3.5 (target INR of 3). Michael GH, et al. Chest 2012, 141:7S-47S David RA, et al. [facility] 2017, 70: 252-289 Performed By: #### PT, CBC, BMP #### [facility] [employer] [address], [place] [address] CBC Collected: 04/12/2018 Status: F Source: GERALDINE 3:48 AM [facility] REPOSITORY TYPE CODE TESTS RESULT OUT OF REFERENCE UNITS RANGE LAB WBC 3.70-11.00 k/uL WBC 9.08 LAB RBC 4.20-6.00 m/uL Low RBC 3.68 LAB HGB 13.0-17.0 g/dL Low Hemoglobin 11.7 LAB HCT 39.0-51.0 % Low Hematocrit 36.8 LAB MCV 80.0-100.0 fL MCV 100.0 LAB MCH 26.0-34.0 pG MCH 31.8 LAB MCHC 30.5-36.0 g/dL MCHC 31.8 LAB RDWCV 11.5-15.0 % RDW-CV 13.2 LAB PLTCT 150-400 k/uL Platelet Count 397 LAB MPV 9.0-12.7 fL MPV 10.2 LAB ABSNUC <0.01 k/uL Absolute nRBC <0.01 Performed By: #### PT, CBC, BMP #### [facility] [employer] [address] [place], [place] [address] BASIC METABOLIC PANL Collected: 04/12/2018 Status: F Source: GERALDINE 3:48 AM [facility] REPOSITORY TYPE CODE TESTS RESULT OUT OF REFERENCE UNITS RANGE LAB GLU 74-99 mg/dL High Glucose 195 Result Comment: The [place] [employer] (ADA) provides guidance for cutoff values for fasting glucose and random glucose. The ADA defines fasting as no caloric intake for at least 8 hours. Fas ting plasma glucose results between 100 to 125 mg/dL indicate increased risk for diabetes (prediabetes). Fasting plasma glucose results greater than or equal to 126 mg/dL meet the criteria for diagnosis of diabetes. In the absence of unequivocal hyperglycemia, results should be confirmed by repeat testing. In a patient with classic symptoms of hyperglycemia or hyperglycemic crisis, random plasma glucose results greater than or equal to 200 mg/dL meet the criteria for diagnosis of diabetes. Reference: Standards of Medical Care in Diabetes 2016, [place] [employer]. Diabetes Care. 2016.39(Suppl 1). LAB BUN 9-24 mg/dL BUN 15 LAB CRET 0.73-1.22 mg/dL Creatinine 1.03 LAB NA 136-144 mmol/L Sodium 138 LAB K 3.7-5.1 mmol/L Potassium 5.0 LAB CL 97-105 mmol/L Chloride 98 LAB CO2 22-30 mmol/L CO2 30 LAB AGAP 9-18 mmol/L Anion Gap 10 LAB CA 8.5-10.2 mg/dL Calcium, Total 9.6 LAB GFRAA eGFR- Amer. >60 LAB GFRNAA . eGFR-All Other Races >60 Result Comment: eGFR (Estimated GFR) Units of measure: mL/min/1.73 meters squared eGFR is derived from the reexpressed MDRD Study equation using the following parameters: serum creatinine, age, gender and race. The creatinine assay has been calibrated to be traceable to IDMS. An eGFR <60 mL/min/1.73m2 for >3 months is consistent with chronic kidney disease. Refer to KDOQI guidelines for clinical interpretation. In patients with unstable renal function, e.g. those with acute kidney injury, the eGFR may not accurately reflect actual GFR. Performed By: #### PT, CBC, BMP #### [facility] [employer] [address] [place] [address] OPERATIVE NO Observed: 04/12/2018 Status: COMPLETED Source: GERALDINE 12:00 AM [facility] REPOSITORY HNO ID: [id number] Author: Sammy Zhu Service: Cardiac Surgery Author Type: Physician Type: Operative Report Filed: 04/19/2018 3:33 PM Note Text: [address] [address] [place] OPERATIVE REPORT NAME: RICK GEORGE [facility] #: [id number] DATE: 04/12/2018 AGE: 57 SURGEON 1: Sammy Zhu M.D. SURGEON 2: KNOCKOUT MACHINE OPERATOR 1: Dr. Dee Duke KNOCKOUT MACHINE OPERATOR 2: AARON Murillo No qualified residents available. PREOPERATIVE DIAGNOSIS: Coronary artery disease, NSTEMI, peripheral vascular disease. POSTOPERATIVE DIAGNOSIS: Coronary artery disease, NSTEMI, peripheral vascular disease. OPERATION: CABG x3 MACK-lad, SVG-OM, SVG-left PDA. ANESTHESIA: General. COMPLICATIONS: None. ESTIMATED BLOOD LOSS: 250 mL. OPERATIVE PROCEDURE: Endoscopic vein harvest. OPERATIVE INDICATIONS: The patient is a 58-year-old gentleman, who presented with chest pain, NSTEMI. Cardiac catheterization showed severe coronary artery disease. He was referred for surgery; however, he had C diff, thus this was treated prior to surgery. The findings were explained to the patient and family, they understood the risks, benefits, and the alternatives of surgery and they wished to proceed. SURGICAL PROCEDURE: The patient was prepped and draped in the usual fashion. A median sternotomy was performed and the left internal mammary artery was harvested in a pedicled fashion. Simultaneously, the right GSV was harvested in an endoscopic fashion. Systemic heparin was given and ascending aorta and right atrium were cannulated. After adequate ACT was achieved, we went on cardiopulmonary bypass. The aorta was cross-clamped antegrade followed by retrograde, cardioplegia was given to achieve cardiac arrest after a retrograde cardioplegia was given every 15 minutes to maintain cardiac arrest. First, the left-sided PDA was exposed. This was heavily diseased vessel, however, we were able to find a spot to perform a bypass and arteriotomy was made. This was a 1.5 mm vessel and an SVG was placed with 7-0 Prolene. Proximal anastomosis was done with a 6-0 Prolene. Then, the OM was exposed. This was again very heavily diseased vessel and this was a 1.5 mm vessel and SVG was placed with 7-0 Prolene. The proximal anastomosis was done with 6-0 Prolene. The LAD was exposed, this was a 1.5 mm vessel and the MACK was placed with 7-0 Prolene. The heart was de-aired and the cross-clamp was removed. We had no difficulty coming off cardiopulmonary bypass. The transesophageal echocardiogram showed good LV and RV function and no significant valve issues. The flow meter showed good flow in all the grafts. All the cannulas were removed and protamine was given. After adequate hemostasis was achieved, chest tubes were placed. The chest was closed with wires in the usual fashion. The patient tolerated the procedure well and was transported to the Cardiothoracic Intensive Care Unit in stable condition. Sponge counts, instrument counts, needle counts reported correct by the circulating nurse. PRACTITIONER TASK: Dr. Dee Duke opened, harvested the internal mammary artery and closed the chest. I or one of my colleagues were immediately available at this time. The rest of the procedure was done by the primary surgeon. DRAINS: Mediastinal, left pleural. Sammy Zhu M.D. OLSEN:[id number] /[id number] cc: OPERATIVE NO Observed: 04/12/2018 Status: COMPLETED Source: GERALDINE 12:00 AM [facility] REPOSITORY O ID: [id number] Author: Sammy Zhu Service: Cardiac Surgery Author Type: Physician Type: Operative Report Filed: 04/22/2018 6:06 PM Note Text: [place] [address] [place] OPERATIVE REPORT NAME: RICK GEORGE [facility] #: [id number] DATE: 04/12/2018 AGE: 58 [address]203SURGEON 1: Sammy Zhu M.D. SURGEON 2: KNOCKOUT MACHINE OPERATOR 1: Dee Duke M.D. KNOCKOUT MACHINE OPERATOR 2: Andres Sorensen R.N. No qualified residents available. PREOPERATIVE DIAGNOSIS: Coronary artery disease, NSTEMI, peripheral vascular disease. POSTOPERATIVE DIAGNOSIS: Coronary artery disease, NSTEMI, peripheral vascular disease. OPERATION: CABG x3 MACK-LAD, SVG-OM, SVG-left PDA, Endoscopic vein harvest. ANESTHESIA: General. COMPLICATIONS: None. ESTIMATED BLOOD LOSS: 250 mL. OPERATIVE INDICATIONS: The patient is a 58-year-old gentleman, who presented with chest pain, NSTEMI. Cardiac catheterization showed severe coronary artery disease. He was referred for surgery; however, he had C diff, thus this was treated prior to surgery. The findings were explained to the patient and family, they understood the risks, benefits, and the alternatives of surgery and they wished to proceed. SURGICAL PROCEDURE: The patient was prepped and draped in the usual fashion. A median sternotomy was performed and the left internal mammary artery was harvested in a pedicled fashion. Simultaneously, the right GSV was harvested in an endoscopic fashion. Systemic heparin was given and ascending aorta and right atrium were cannulated. After adequate ACT was achieved, we went on cardiopulmonary bypass. The aorta was cross-clamped antegrade followed by retrograde, cardioplegia was given to achieve cardiac arrest. Afterwards retrograde cardioplegia was given every 15 minutes to maintain cardiac arrest. First, the left PDA was exposed. This was heavily diseased vessel, however, we were able to find a spot to perform a bypass and arteriotomy was made. This was a 1.5 mm vessel and an SVG was placed with 7-0 Prolene. Proximal anastomosis was done with a 6-0 Prolene. Then, the OM was exposed. This was again very heavily diseased vessel and this was a 1.5 mm vessel and SVG was placed with 7-0 Prolene. The proximal anastomosis was done with 6-0 Prolene. The LAD was exposed, this was a 1.5 mm vessel and the MACK was placed with 7-0 Prolene. The heart was de-aired and the cross-clamp was removed. We had no difficulty coming off cardiopulmonary bypass. The transesophageal echocardiogram showed good LV and RV function and no significant valve issues. The flow meter showed good flow in all the grafts. All the cannulas were removed and protamine was given. After adequate hemostasis was achieved, chest tubes were placed. The chest was closed with wires in the usual fashion. The patient tolerated the procedure well and was transported to the Cardiothoracic Intensive Care Unit in stable condition. Sponge counts, instrument counts, needle counts reported correct by the circulating nurse. PRACTITIONER TASK: Dr. Dee Duke opened, harvested the internal mammary artery and closed the chest. I or one of my colleagues were immediately available at this time. The rest of the procedure was done by the primary surgeon. DRAINS: Mediastinal, left pleural. Incision/Procedure Start Time: 15:02. Incision Close/Procedure End Time: 20:00. Sammy Zhu M.D. OLSEN:[id number]/20/2018j /[id number] cc: PTT,ANTICOAG THERAPY Collected: 04/11/2018 Status: F Source: GERALDINE 10:40 PM [facility] REPOSITORY TYPE CODE TESTS RESULT OUT OF RANGE REFERENCE UNITS LAB APTT 23.0-32.4 sec High APTT 34.9 Result Comment: Unfractionated Heparin Therapeutic Ranges: Standard Heparin Nomogram: 53 to 78 seconds (anti-Xa level of 0.3 to 0.7 U/ml) Low Dose/ACS Nomogram: 49 to 67 seconds (anti-Xa level of 0.2 to 0.5 U/ml) Stroke Treatment Nomogram: 49 to 67 seconds (anti-Xa level of 0.2 to 0.5 U/ml) Note: The APTT therapeutic range has been determined for the current lot of laboratory APTT reagent in use throughout the [facility]. Performed By: #### PTTAC #### [facility] [address] [place] [id number] TROPONIN T Collected: 04/11/2018 Status: F Source: GERALDINE 5:14 PM [facility] REPOSITORY TYPE CODE TESTS RESULT OUT OF REFERENCE UNITS RANGE LAB TROPT 0.000-0.029 ng/mL High Troponin T 0.041 Result Comment: Urgent value previously called 04/11/17 1414 Performed By: #### COLTON #### [facility] [employer] [address] [place] [address] ANES PREOP Observed: 04/11/2018 Status: COMPLETED Source: GERALDINE 4:00 PM [facility] REPOSITORY HNO ID: [id number] Author: Fernando Schneider Service: Anesthesiology Author Type: Resident Type: Anesthesia PreOp Filed: 04/11/2018 5:12 PM Note Text: [facility] PRE[facility] EVALUATION CARDIOTHORACIC ANESTHESIA CARDIAC SURGERY SERVICE DATE: 04/11/2018 SERVICE TIME: 4:00 PM Proposed Surgical Procedure: CABG Re-do: No ASA Class: 4 Surgeon: [facility] Surgery Date: 04/12/18 Last Wt 04/11/18 : 88.3 kg (194 lb 11.2 oz) Last Ht 04/03/18 : 177.8 cm (5' 10) Estimated body mass index is 27.94 kg/m? as calculated from the following: Height as of this encounter: 177.8 cm (5' 10). Weight as of this encounter: 88.3 kg (194 lb 11.2 oz). Estimated body surface area is 2.09 meters squared as calculated from the following: Height as of this encounter: 177.8 cm (5' 10). Weight as of this encounter: 88.3 kg (194 lb 11.2 oz). HPI: CAD, PAD/PVD, CVA. Diabetic retinopathy, DM, Polyneuropathy, ulnar neuropathy, Current C. Diff. He has been coughing for the past week. LHC on 04/03/18 w LMT 25%, Prox LAD 85%, Dist LAD 75%, Prox LCX 75%, Mid LCX 85%, Ramus diffuse dz, and RCA 95%. PAST MEDICAL HISTORY Diagnosis Date - Cataract b/l, eye exam 05/29/13 - CTS (carpal tunnel syndrome) 10/2013 b/l, chronic, Dr. 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 Mazin Hinojosa Neuro, likely from DM and Vitamin B12 defic - Stroke ([facility]) 10/01/13 - Ulnar neuropathy 10/2013 b/l, chronic, Dr. Mazin Hinojosa EMG - Vitamin D deficiency 11/2013 PAST SURGICAL HISTORY Procedure Laterality Date - DISCISSION,2ND CATARACT,LASER 06/07/2013 Yag Capsulotomy-Right eye - LASER, SECONDARY CATARACT 2006 OU - PAST SURGICAL HISTORY OF 02/2013 Amputation Right Gt toe FAMILY HISTORY Problem Relation Age of Onset - Diabetes Mother - Heart Father Social History Substance Use Topics - Smoking status: Never Smoker - Smokeless tobacco: Former User Types: Chew - Alcohol use 12.0 oz/week 8 Cans of Beer (12oz) per week Comment: 1-2 per day ALLERGIES Allergen Reactions - Lipitor [Atorvastat* Contraindication-Medical Surgical Elevated LFTs and elevated CK level - Metformin Diarrhea REVIEW OF SYSTEMS: Neuro: CVA with pain on his left side form his shoulder down to his feet. He still has strength in his left side. Respiratory: Cough, pulmonary edema per cxr. Cardiovascular: See HPI GI: See HPI Endocrine: No history of diabetes. Has not taken steroids within the past 30 days. No history of endocrinological symptoms or problems. Hematology: See HPI CKD AND ANEMIA ASSESSMENT: Patient has both eGFR < 60 mL/min and a Hemoglobin < 11 g/dl: No if the patient is going on CPB. ANESTHETIC HISTORY: History of general anesthesia without complications. AIRWAY ASSESSMENT: Airway History: No abnormal airway history Airway Exam: General: Normal appearance Mallampati Score: CLASS I Poor dentition, cracked wisdom teeth. Temporo-Mandibular Displacement Test: Position A (lower teeth can be advanced beyond upper teeth) Interincisor Distance: 6 cm Thyromental Distance: 8 cm Neck Circumference: 40 cm Overbite: No Cervical Mobility: Normal Facial Hair: Yes, Full Packer-No Head/Neck Pathology: Yes, Si ANTICIPATED DIFFICULT AIRWAY: POSSIBLY, Would take care in positioning his neck. Pre-Existing Diagnosis of Obstructive Sleep Apnea: No, STOP BANG SCORE: Criteria = VARSHA does not use CPAP/BiPAP, Score = 5 PHYSICAL EXAM: VITALS: BP 139/72 Pulse 88 Temp 36.7 ?C (98.1 ?F) (Oral) Resp 16 Ht 177.8 cm (5' 10) Wt 88.3 kg (194 lb 11.2 oz) SpO2 100% BMI 27.94 kg/m? CARDIAC: Regular rate and rhythm. LUNGS: Not assessed. Lines, Drains, Airway: Peripheral IV O2 Therapy: Room Air (04/11/18 1440) LABS: Lab Results Past 6 Months Component Value Date HB 11.8 (L) 04/11/2018 HCT 37.4 (L) 04/11/2018 PLT 382 04/11/2018 WBC 9.16 04/11/2018 NA 142 04/11/2018 K 4.1 04/11/2018 CREAT 0.96 04/11/2018 CA 9.4 04/11/2018 APTT 25.6 04/05/2018 INR 1.0 04/11/2018 HBA1C 5.7 (H) 04/04/2018 TSH 2.410 04/04/2018 Lab Results Past 6 Months Component Value Date GLUC 106 (H) 04/11/2018 K 4.1 04/11/2018 NA 142 04/11/2018 CHLOR 101 04/11/2018 CO2 31 (H) 04/11/2018 CREAT 0.96 04/11/2018 BUN 13 04/11/2018 ANION 10 04/11/2018 CA 9.4 04/11/2018 TPROT 6.6 04/09/2018 ALB 3.2 (L) 04/09/2018 TBILI 0.2 04/09/2018 ALKPHOS 62 04/09/2018 AST 39 04/09/2018 ALT 37 04/09/2018 ABO/RH(D) (no units) Date Value 04/04/2018 B POSITIVE Antibody Screen (no units) Date Value 04/04/2018 NEG Historical Ab Scr Status (no units) Date Value 04/11/2018 NEGATIVE Anticipated Blood Products Ordered: No blood product orders needed. Will the Patient Accept Blood: Yes IMAGING AND TESTS: MRI neck 2016 IMPRESSION: 1. ?C3 through C7 spondylosis as detailed. 2. ?Mild to moderate right neural foramina narrowing at C3-4. 3. ?No additional significant canal or foramen disease. ECG 04/11/2018: ? Diagnosis:NORMAL SINUS RHYTHM CANNOT EXCLUDE ANTERIOR MYOCARDIAL INFARCTION , AGE UNDETERMINED ABNORMAL ECG ? Carotid Dup 04/04 RIGHT SIDE ? Common carotid artery: Plaque visualized without evidence of hemodynamically significant stenosis. ? Internal carotid artery: 20-39% stenosis. ? Vertebral artery: Patent and antegrade flow noted. ? LEFT SIDE ? Common carotid artery: Plaque visualized without evidence of hemodynamically significant stenosis. ? Internal carotid artery: 20-39% stenosis. ? Vertebral artery: Patent and antegrade flow noted. 04/04: Echo ? CONCLUSIONS: - Exam indication: CAD - The left ventricle is normal in size. Left ventricular systolic function is normal. EF = 57 ? 5% (2D biplane) Normal left ventricular diastolic function. GLS= ?-16.9%. - The right ventricle is normal in size. Right ventricular systolic function is normal. Cardiac CT: 04/04 RESULT: CHEST: Chest wall anatomy: unremarkable Lungs: breathing artifact - ?small bilateral pleural effusions with adjacent atelectasis, ?? ?Non-calcified 2 mm ? ? nodule right middle ?lung lobe (Image # [id number]) Incidental Finding: ?No follow-up imaging for this incidentally detected lung nodule is recommended. Mediastinum: mediastinal lymph nodes, which are not pathologic by size criteria Pericardium: unremarkable Central pulmonary artery: normal dimensions, assessment is limited due to lack of contrast enhancement CARDIAC CHAMBERS: assessment is limited in the non-contrast enhanced study Overall normal dimensions CENTRAL VENOUS and PULMONARY VENOUS RETURN: normal Coronary Sinus: normal dimensions MITRAL VALVE: Mild inferior mitral annular calcification and subvalvular calcification CORONARY ANATOMY: Normal origin of the coronary arteries Diffuse, calcified atherosclerotic changes of the coronary arteries, precluding precise assessment with CT. - [place] AMOS and ARAVIND are normal size vessels ?without evidence of calcified atherosclerotic changes. AORTA AORTIC VALVE: Assessment is limited in the current study; minimal leaflet calcification AORTIC ROOT: upper normal size; Diameter: 3.7 cm Sinotubular Junction: maintained; mild calcification ASCENDING THORACIC AORTA: normal size; Diameter: 3.4 cm ?; no calcification Aortic Arch: normal size; Maximum Diameter: 2.9 cm ?; mild distal calcification ?? ?Arch Branch Vessels: normal size; assessment for patency is not possible in the non-contrast enhanced study; mild proximal calcification; Descending Thoracic Aorta: normal size; ?mild calcification; Relationship OF CARDIOVASCULAR STRUCTURES TO STERNUM: The left brachio-cephalic vein lies ? ? immediately behind the manubrium sternum. AORTIC CALCIFICATION: see above. mild posterior calcification of the ascending thoracic aorta AORTIC ARCH BRANCH VESSELS: see above. ?Mid and distal subclavian arteries: normal size vessels without evidence of calcification Assessment of patency is not possible in a non-contrast study PFT 04/05 IMPRESSION: Spirometry shows no obstruction. The reduced FVC suggests restriction. ?Recommend lung volumes if clinically indicated. CXR 04/04 RESULT: Lines, tubes, and devices: ?None. Lungs and pleura: ?Lung volumes are low. ?There are bilateral thickened interstitial opacities with blurring of the vascular margins and peribronchial cuffing, most consistent with pulmonary edema. ?Atypical infection can have a similar appearance in the appropriate clinical setting. ?There are small bilateral pleural effusions. ?No pneumothorax. Cardiomediastinal silhouette: ?Cardiomediastinal silhouette is stable in size. Atherosclerotic calcification of the aortic arch is noted. Other: ?Mild degenerative endplate changes present within the thoracic spine. DEVICES: None MEDICATIONS: Current Facility-Administered Medications: insulin lispro injection (rapid acting) (HumaLOG) SUBCUTANEOUS w MEALS insulin lispro injection (rapid acting) (HumaLOG) SUBCUTANEOUS AT BEDTIME [START ON 04/12/2018] insulin glargine 5 Units pen (long acting) (LANTUS SOLOSTAR, BASAGLAR KWIKPEN) 5 Units SUBCUTANEOUS DAILY (8 AM) Chlorhexidine Gluconate 0.12 % 15 mL (PERIDEX) 15 mL ORAL q 12 H heparin iv infusion (LOW DOSE ACS/NOMOGRAM) 25,000 units in NaCl 0.45% 250 mL PREMIX 0-3,000 Units/hr INTRAVENOUS CONTINUOUS And heparin RATE CHANGE bolus 1,000-4,000 Units for subtherapeutic aptt results 1,000-4,000 Units INTRAVENOUS PRN heparin nomogram - NO INITIAL BOLUS OTHER ONCE (heparin bolus) 0.9% NaCl 3-5 mL 3-5 mL INTRAVENOUS q 12 H benzonatate 100 mg cap(s) (TESSALON PERLE) 100 mg ORAL TID traMADol 50 mg tab(s) (ULTRAM) 50 mg ORAL q 6 H PRN gabapentin 800 mg tab(s) (NEURONTIN) 800 mg ORAL TID cetirizine 10 mg tab(s) (ZyrTEC) 10 mg ORAL DAILY vancomycin 125 mg oral liquid (VANCOCIN) 125 mg ORAL QID nortriptyline 50 mg cap(s) (PAMELOR) 50 mg ORAL AT BEDTIME tiZANidine 4 mg tab(s) (ZANAFLEX) 4 mg ORAL TID PRN dextrose 40 % 15 g 15 g ORAL PRN Or glucagon 1 mg injection (GLUCAGEN) 1 mg INTRAMUSCULAR PRN Or dextrose 50% in water 25 mL syringe 12.5 g INTRAVENOUS PRN carvedilol 6.25 mg tab(s) (COREG) 6.25 mg ORAL BID w MEALS aspirin 81 mg chewable tab(s) 81 mg ORAL DAILY rosuvastatin 20 mg tab(s) (CRESTOR) 20 mg ORAL AT BEDTIME Is the patient currently on any anticoagulant medications: Yes: Anticoagulant medications the patient is currently on: Heparin gtt This was adequately stopped before surgery: No, primary service aware. PAIN AND ANXIETY EDUCATION AND MANAGEMENT: Patient has no concerns to address at this time. Additional Comments: None I have reviewed the Cardiothoracic Surgical Assessment and agree with its findings. During the course of the encounter the patient was prepared for anesthetic care. This conversation included anesthetic options, possible use of invasive monitoring, the risks, benefits, alternatives, and personnel that will be present for the anesthetic encounter. The patient agreed to proceed with the planned anesthetic. Instructed to take His scheduled medication with a small sip of water on the morning of surgery. BETA KURT COMPLIANCE: Is the Patient Scheduled for a CABG: Yes. Patient currently takes a beta kurt, and was asked to take it as scheduled. SIGNATURE: Fernando Schneider DO PATIENT NAME: Rick George Jr. DATE: April 11, 2018 TIME: 4:00 PM PAGER/CONTACT #: TYPE AND SCREEN Collected: 04/11/2018 Status: F Source: GER[place] 1:20 PM [facility] REPOSITORY TYPE CODE TESTS RESULT OUT OF REFERENCE UNITS RANGE LAB %ABR B ABO/RH(D) POSITIVE LAB % Antibody NEG Screen Performed By: #### TSCR #### [facility] [employer] [address] [place], [place] [id number] OSMOLALITY, URINE Collected: 04/11/2018 Status: F Source: GER[place] 12:30 PM [facility] REPOSITORY TYPE CODE TESTS RESULT OUT OF RANGE REFERENCE UNITS LAB UOSM 50-1200 mOsm/kg 234 Osmolality, Urine Performed By: #### UOSM #### [facility] [employer] [address] [place], [place] [address] CONSULT PROG Observed: 04/11/2018 Status: COMPLETED Source: GER[place] 10:14 AM [facility] REPOSITORY HNO ID: [id number] Author: Mercedes Montalvo Service: Cardiac Surgery Author Type: Nurse Practitioner Type: Consult Progress Note Filed: 04/11/2018 10:16 AM Note Text: [facility] PROGRESS NOTE Rick George Jr. [id number] CTS staff Dr. Sims Intended surgery: CABG Date of surgerry: Tomorrow 2nd round. Patient is aware. Dr. Zhu to see patient prior to surgery. Update type and screen CT anesthesia to see patient ASSESSMENT AND PLAN: Problem Preop Testing [facility] PRE-OP CHECKLIST Surgeon: Sammy Zhu M.D. Informed Consent Completed: No STS Score: CABG 1.5% mortality risk CAD: Yes - CAD on Problem List: Yes Is intended procedure a CABG: Yes - is a beta kurt ordered? Yes H AND P completed: Yes PA/LAT: Completed CT: Completed MRI: Completed LE US: Completed Cath: Yes - reviewed: Yes Echo:Completed EKG: Completed EF %: 57 PI's: checked poor Carotid: Completed Mapping: Completed Dental: N/A PFT's: Completed CBC, Coags, BMP, Mg, Phos Recent Labs 04/11/18 0542 04/10/18 1924 04/10/18 0612 04/09/18 0345 WBC 9.16 -- 9.06 9.28 HB 11.8* -- 11.3* 10.8* HCT 37.4* -- 36.0* 34.6* PLT 382 -- 384 362 INR 1.0 -- -- 1.0 NA 142 139 142 138 K 4.1 5.7* 5.5* 5.1 CHLOR 101 100 100 99 CO2 31* 31* 32* 25 BUN 13 15 11 12 CREAT 0.96 1.09 0.99 0.90 GLUC 106* 252* 115* 155* CA 9.4 9.7 9.8 9.2 UA: Normal HCG:N/A ABO/ABO Confirmed: Yes Blood ordered: No SA Swab: Yes - results: Pending Last Dose of Anticoagulation: Aspirin and Heparin Op Note: No Pacemaker Check: No Implants: no Consults: ID DM: yes Cardiac Surgical prep: Yes SIGNATURE: Mercedes Montalvo RN LANDSCAPE CONTRACTOR.TRACK LABORER CHECKED BY: DATE of SERVICE: 2018 TIME of SERVICE: 11:17 AM I Informed patient what to expect pre/post operatively Stressed to patient the importance of pain control for successful recovery: INFORMED OF IMPORTANCE OF GOOD PAIN [id number] for pain medication early when pain level is 2/0-10Informed patient (and family) what to expect pre/post operatively IMPORTANCE OF PAIN [id number]-thp for pain medication early, take pain medication routinely to have adquate pain control to prevent postop complications ie Pneumonia, Deep Vein Thrombosis, Delayed Wound Healing, Longer Hospital Stay. Explained importance of Deep Breathing/Coughing before and after surgery pain scale, take pain medication routinely to have adquate pain control to prevent postop complications for example,? Pneumonia, Deep Vein Thrombosis, Delayed Wound Healing, Longer Hospital Stay. ? Explained the importance of Bowel Maintenance-taking stool softners (or laxatives if indicated) to maintain regular bowel movements while on pain medication. Informed of benefits of adequate pain control- taking pain medication when pain level is -ask for pain medication; Inform pt may want to ask for pain medication around the clock/routinely on first postop Day on Regular Nursing Floor- thereby promoting recovery;-able to breathe deeply and adequately thus decrease Oxygen requirements of body, Able to walk, get out of bed- thereby decrease recovery time and decreased risk for infection. Explained importance of Deep Breathing/Coughing before and after surgery Instructed in breathing exercises-deep breaths 10 times/hour while awake. Pt verbalized understanding and demostrated understanding via return demonstration. ? Discussed discharged plans-informed patient , a Cardiac Surgery Nurse Practitioner visit is recommended within 3-7 days after being discharged if lived in near [place], [place] area or within [address] of [place], [place]. Discussed with Patient (Family) will need to see their PCP and Key Holder? following discharged- specific time frames for postop visits for Cardiac Surgery Nurse Practitioner, PCP and Key Holder will be discussed at time of discharged. Patient (Family) Verbalized understanding. SIGNATURE: Mercedes Montalvo RN LANDSCAPE CONTRACTOR.TRACK LABORER PAGER: [phone] DATE of SERVICE: 04/11/2018 TIME of SERVICE:10:16 AM PROGRESS Observed: 04/11/2018 Status: COMPLETED Source: [place] 10:07 AM [facility] REPOSITORY [facility] ID: [id number] Author: Zoe Rodriguez Service: Cardiovascular Medicine Author Type: Physician Type: Progress Notes Filed: 04/11/2018 10:18 AM Note Text: [facility] CARDIOVASCULAR MEDICINE PROGRESS NOTE (Template ID [id number]) Rick George Jr. [id number] PRIMARY SERVICE: [facility] Clinical Cardiology A HOSPITAL DAY: # 7 INTERVAL HISTORY NAEO, no new complaints Still with some L rib pain Still with polyuria OR for CABG with Dr. Zhu tomorrow per cardiac surgery recs PHYSICAL EXAM BP 102/61 Pulse 76 Temp 36.5 ?C (97.7 ?F) (Oral) Resp 16 Ht 177.8 cm (5' 10) Wt 88.3 kg (194 lb 11.2 oz) SpO2 97% BMI 27.94 kg/m? Intake/Output Summary (Last 24 hours) at 04/11/18 1007 Last data filed at 04/10/18 2153 Gross per 24 hour Intake 240 ml Output 2350 ml Net -2110 ml General Appearance: Well developed, Well nourished , NAD HEENT: PERRLA, EOM's intact, Sclera anicteric, Fair dentition and JVD - no Lungs: CTAB no crackles today Heart: Regular rate AND rhythm, nml S1, S2, no m/r/g Abdomen: Soft, Non-tender and Bowel sounds present Skin: Warm and Dry Musculoskeletal: no LE edema Neurologic/Psychiatric: Oriented to time, place AND person MEDICATIONS Current hospital medications: insulin lispro injection (rapid acting) (HumaLOG) SUBCUTANEOUS w MEALS insulin lispro injection (rapid acting) (HumaLOG) SUBCUTANEOUS AT BEDTIME insulin glargine 10 Units pen (long acting) (LANTUS SOLOSTAR, BASAGLAR KWIKPEN) 10 Units SUBCUTANEOUS DAILY (8 AM) 0.9% NaCl 3-5 mL 3-5 mL INTRAVENOUS q 12 H benzonatate 100 mg cap(s) (TESSALON PERLE) 100 mg ORAL TID traMADol 50 mg tab(s) (ULTRAM) 50 mg ORAL q 6 H PRN gabapentin 800 mg tab(s) (NEURONTIN) 800 mg ORAL TID cetirizine 10 mg tab(s) (ZyrTEC) 10 mg ORAL DAILY vancomycin 125 mg oral liquid (VANCOCIN) 125 mg ORAL QID nortriptyline 50 mg cap(s) (PAMELOR) 50 mg ORAL AT BEDTIME tiZANidine 4 mg tab(s) (ZANAFLEX) 4 mg ORAL TID PRN dextrose 40 % 15 g 15 g ORAL PRN glucagon 1 mg injection (GLUCAGEN) 1 mg INTRAMUSCULAR PRN dextrose 50% in water 25 mL syringe 12.5 g INTRAVENOUS PRN carvedilol 6.25 mg tab(s) (COREG) 6.25 mg ORAL BID w MEALS aspirin 81 mg chewable tab(s) 81 mg ORAL DAILY rosuvastatin 20 mg tab(s) (CRESTOR) 20 mg ORAL AT BEDTIME heparin 5,000 Units injection 5,000 Units SUBCUTANEOUS q 12 H DATA Recent Labs 04/05/18 0531 04/04/18 0158 04/04/18 0008 WBC 11.15* 14.34* 17.22* HB 11.3* 10.8* 6.0* HCT 34.5* 33.6* 19.1* PLT 267 257 350 Recent Labs 04/05/18 0531 04/04/18 0008 NA 138 139 K 3.9 3.7 CO2 23 23 BUN 15 25* CREAT 0.79 0.95 GLUC 107* 130* MG -- 1.9 IMAGING Reviewed ASSESSMENT AND PLAN Rick George Jr. is a 57 year old male w PMH of DM2 c/b neuropathy, HTN, HLD, PAD/PVD, and CVA who presented for evaluation for PCI vs CABG after an NSTEMI on 04/01/18. Pt has multivessel dz and DM2 so will likely go for CABG, however patient has at least one active infection, Cdiff and possible PNA. Will start CAD Rxs, prep for CABG, and treat/work up infections. PLAN FOR TODAY - CABG tomorrow - check urine osmoles for polyuria - Cont glargine at half home dose, follow BG - wound care on board for R heel ulcer from nail - Cont PT for L hip Neuro #Peripheral Neuropathy 2/2 DM2 Mild numbness in feet b/l Plan Cont Gabapentin ? CV #NSTEMI in s/o 3VDz Tn peak 6, BNP ~600 Had J point elevations on ECG yesterday, stable today Plan CABG w/u complete, accepted by [facility] for surgery. Date depending on necessary treatement duraiton for c diff Colton given J point elevation ? #CAD LMT 25% LAD Prox 85%, Dist 75% LCX Prox 75%, Dist 85% RCA 95% Plan ASA Hold Brillinta for upcoming CABG No heparin gtt given last CP on Tuesday, no current CP Coreg lisinopril Rosuvastatin. No signs of myopathy ? #HTN Plan Coreg lisinopril ? Pulmonary #pulmonary edema - resolved ? GI #Cdiff Pos test at OSH, pt received Flagyl Some improvement in frequency of diarrhea on Flagyl Plan Vancomycin tx length 10 days ? Endocrine #DM2 A1c ~6, c/b neuropathy Plan SSI Insulin ? Renal #polyuria - over 3L UOP yesterday - glucose well controlled, no JUAN, no uremia, no mannitol. IVF have been held PLAN - urine osmoles Diet Hrt Healthy 2g Na - NPO at midnight DVT ppx - heparin sq GI ppx - not indicated Case to be discussed with staff Arturo Mcmahan PGY-2, Internal Medicine [id number] [facility] STAFF PHYSICIAN NOTE OF PERSONAL INVOLVEMENT IN CARE Impression/Plan: Mr. 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 Zhu, possibly tomorrow. I have reviewed the documentation obtained and documented by the Fellow/Resident/COMPUTER FORENSICS EXAMINER/PA and have reviewed and updated the problem list as appropriate. I have personally performed a face to face assessment of the patient and have personally participated in the rubi components. I have discussed the case and management of the patient's care. STAFF PHYSICIAN: Zoe Rodriguez MD Date of Service: 04/11/18 ECG COMPLETE W Observed: 04/11/2018 Status: F Source: [place] INTERPRETATION 7:35 AM [facility] REPOSITORY NAME : RICK GEORGE PID : [id number] : 1960 Gender : Male Race : ORD : [id number] Procedure Date : Apr 11 2018 07:35:44 Edit Date : Apr 13 2018 15:44:56 Diagnosis:NORMAL SINUS RHYTHM NORMAL ECG Confirmed by Tomi STACK M.D. ([id number]) on 04/13/2018 3:36:44 PM Ventricular Rate : 74 BPM Atrial Rate : 74 BPM P-R Interval : 188 ms QRS Duration : 90 ms Q-T Interval : 406 ms QTC Calculation(Bezet) : 450 ms P [place] : 45 degrees R [place] : -7 degrees T [place] : 25 degrees Test Reason : CAD Location : 361 : J61 [id number] Overread By : Tomi STACK M.D. Edited By : Tomi STACK M.D. Referred By : , Acquired by : JANNETTE GONZALES Collected: 04/11/2018 Status: F Source: GERALD[place] 5:42 AM [facility] REPOSITORY TYPE CODE TESTS RESULT OUT OF RANGE REFERENCE UNITS LAB PSEC 9.7-13.0 sec PT Sec 10.6 LAB INR 0.9-1.3 PT INR 1.0 Result Comment: Vitamin K Antagonist (VKA) Therapeutic Range: INR 2 to 3 (Target INR of 2.5) Note: For patients treated with VKA drugs, such as warfarin, the [place] [employer] 2012 Guideline recommends a therapeutic INR range of 2 to 3 (target INR of 2.5). This recommendation includes high-risk patients with antiphospholipid syndrome with previous arterial or venous thromboembolism, current-generation mechanical or bioprosthetic aortic heart valve replacement. Note: Patients with mechanical aortic valve replacement and additional risk factors for thromboembolic events (atrial fibrillation, previous thromboembolism, LV dysfunction, hypercoagulable conditions) or an older generation mechanical AVR (i.e., ball in-Cage) or any mechanical MVR should have a INR therapeutic range of 2.5 to 3.5 (target INR of 3). Michael GH, et al. Chest 2012, 141:7S-47S David RA, et al. [facility] 2017, 70: 252-289 Performed By: #### PT, BMP, CBC #### [facility] [address] [place] [address] BASIC METABOLIC PANL Collected: 04/11/2018 Status: F Source: GERALDINE 5:42 AM [facility] REPOSITORY TYPE CODE TESTS RESULT OUT OF REFERENCE UNITS RANGE LAB GLU 74-99 mg/dL High Glucose 106 Result Comment: The [place] [employer] (ADA) provides guidance for cutoff values for fasting glucose and random glucose. The ADA defines fasting as no caloric intake for at least 8 hours. Fas ting plasma glucose results between 100 to 125 mg/dL indicate increased risk for diabetes (prediabetes). Fasting plasma glucose results greater than or equal to 126 mg/dL meet the criteria for diagnosis of diabetes. In the absence of unequivocal hyperglycemia, results should be confirmed by repeat testing. In a patient with classic symptoms of hyperglycemia or hyperglycemic crisis, random plasma glucose results greater than or equal to 200 mg/dL meet the criteria for diagnosis of diabetes. Reference: Standards of Medical Care in Diabetes 2016, [place] [employer]. Diabetes Care. 2016.39(Suppl 1). LAB BUN 9-24 mg/dL BUN 13 LAB CRET 0.73-1.22 mg/dL Creatinine 0.96 LAB NA 136-144 mmol/L Sodium 142 LAB K 3.7-5.1 mmol/L Potassium 4.1 LAB CL 97-105 mmol/L Chloride 101 LAB CO2 22-30 mmol/L CO2 High 31 LAB AGAP 9-18 mmol/L Anion Gap 10 LAB CA 8.5-10.2 mg/dL Calcium, Total 9.4 LAB GFRAA eGFR- Amer. >60 LAB GFRNAA . eGFR-All Other Races >60 Result Comment: eGFR (Estimated GFR) Units of measure: mL/min/1.73 meters squared eGFR is derived from the reexpressed MDRD Study equation using the following parameters: serum creatinine, age, gender and race. The creatinine assay has been calibrated to be traceable to IDCT. An eGFR <60 mL/min/1.73m2 for >3 months is consistent with chronic kidney disease. Refer to KDOQI guidelines for clinical interpretation. In patients with unstable renal function, e.g. those with acute kidney injury, the eGFR may not accurately reflect actual GFR. Performed By: #### PT, BMP, CBC #### [facility] [employer] [address] [place], [place] [address] CBC Collected: 04/11/2018 Status: F Source: GERALDINE 5:42 AM [facility] REPOSITORY TYPE CODE TESTS RESULT OUT OF REFERENCE UNITS RANGE LAB WBC 3.70-11.00 k/uL WBC 9.16 LAB RBC 4.20-6.00 m/uL Low RBC 3.76 LAB HGB 13.0-17.0 g/dL Low Hemoglobin 11.8 LAB HCT 39.0-51.0 % Low Hematocrit 37.4 LAB MCV 80.0-100.0 fL MCV 99.5 LAB MCH 26.0-34.0 pG MCH 31.4 LAB MCHC 30.5-36.0 g/dL MCHC 31.6 LAB RDWCV 11.5-15.0 % RDW-CV 13.2 LAB PLTCT 150-400 k/uL Platelet Count 382 LAB MPV 9.0-12.7 fL MPV 10.5 LAB ABSNUC <0.01 k/uL Absolute nRBC <0.01 Performed By: #### PT, BMP, CBC #### [facility] [employer] [address] [place], [place] [address] TROPONIN T Collected: 04/11/2018 Status: F Source: GERALDINE 5:42 AM [facility] REPOSITORY TYPE CODE TESTS RESULT OUT OF REFERENCE UNITS RANGE LAB TROPT 0.000-0.029 ng/mL High Troponin T 0.070 Result Comment: Called to and read back by: Padmini Stern 04/11/2018 Maricel Gandhi Performed By: #### COLTON #### [facility] [employer] [address] [place], [place] [address] BASIC METABOLIC PANL Collected: 2018 Status: F Source: GERALDINE 7:24 PM [facility] [place] REPOSITORY TYPE CODE TESTS RESULT OUT OF REFERENCE UNITS RANGE LAB GLU 74-99 mg/dL High Glucose 252 Result Comment: The [place] Diabetes [employer] (ADA) provides guidance for cutoff values for fasting glucose and random glucose. The ADA defines fasting as no caloric intake for at least 8 hours. Fas ting plasma glucose results between 100 to 125 mg/dL indicate increased risk for diabetes (prediabetes). Fasting plasma glucose results greater than or equal to 126 mg/dL meet the criteria for diagnosis of diabetes. In the absence of unequivocal hyperglycemia, results should be confirmed by repeat testing. In a patient with classic symptoms of hyperglycemia or hyperglycemic crisis, random plasma glucose results greater than or equal to 200 mg/dL meet the criteria for diagnosis of diabetes. Reference: Standards of Medical Care in Diabetes 2016, [place] [employer]. Diabetes Care. 2016.39(Suppl 1). LAB BUN 9-24 mg/dL BUN 15 LAB CRET 0.73-1.22 mg/dL Creatinine 1.09 LAB NA 136-144 mmol/L Sodium 139 LAB K 3.7-5.1 mmol/L Potassium High 5.7 LAB CL 97-105 mmol/L Chloride 100 LAB CO2 22-30 mmol/L CO2 High 31 LAB AGAP 9-18 mmol/L Low Anion Gap 8 LAB CA 8.5-10.2 mg/dL Calcium, Total 9.7 LAB GFRAA eGFR- Amer. >60 LAB GFRNAA . eGFR-All Other Races >60 Result Comment: eGFR (Estimated GFR) Units of measure: mL/min/1.73 meters squared eGFR is derived from the reexpressed MDRD Study equation using the following parameters: serum creatinine, age, gender and race. The creatinine assay has been calibrated to be traceable to IDMS. An eGFR <60 mL/min/1.73m2 for >3 months is consistent with chronic kidney disease. Refer to KDOQI guidelines for clinical interpretation. In patients with unstable renal function, e.g. those with acute kidney injury, the eGFR may not accurately reflect actual GFR. Performed By: #### BMP #### [facility] [employer] [address] [place], [place] [address] CONSULT PROG Observed: 2018 Status: COMPLETED Source: GERALDINE 12:43 PM [facility] [place] REPOSITORY HNO ID: [id number] Author: Mercedes Montalvo Service: Cardiac Surgery Author Type: Nurse Practitioner Type: Consult Progress Note Filed: 2018 5:44 PM Note Text: [facility] PROGRESS NOTE Rick Jayy George Jr. [id number] CTS staff Dr. Sammy Zhu Intended surgery: CABG PI: Conduit: Right HAND DOMINANT: poor PI 10%/poor waveform Left PI: unusable prior radial artery surgery. Per Dr. Zhu surgery: this Thursday 04/12 , confirmed with CT maintenance scheduler Preop testing is complete. Cleared by ID to proceed with surgery. Normal BM. I have updated Dr. Sims and CTS maintenance scheduler that patient is ready for surgery. ASSESSMENT AND PLAN: Problem Preop Testing [facility]ULAR [place] PRE-OP CHECKLIST Surgeon: Sammy Zhu M.D. Informed Consent Completed: No STS Score: CABG 1.5% mortality risk CAD: Yes - CAD on Problem List: Yes Is intended procedure a CABG: Yes - is a beta kurt ordered? Yes H AND P completed: Yes PA/LAT: Completed CT: Completed MRI: Completed LE US: Completed Cath: Yes - reviewed: Yes Echo:Completed EKG: Completed EF %: 57 PI's: N/A Carotid: Completed Mapping: Completed Dental: N/A PFT's: Completed CBC, Coags, BMP, Mg, Phos Recent Labs 04/10/18 0612 04/09/18 0345 04/08/18 0706 WBC 9.06 9.28 8.06 HB 11.3* 10.8* 11.2* HCT 36.0* 34.6* 35.5* PLT 384 362 356 INR -- 1.0 1.0 NA 142 138 141 K 5.5* 5.1 4.3 CHLOR 100 99 102 CO2 32* 25 29 BUN 11 12 10 CREAT 0.99 0.90 0.95 GLUC 115* 155* 106* CA 9.8 9.2 8.7 UA: Normal HCG:N/A ABO/ABO Confirmed: Yes Blood ordered: No SA Swab: Yes - results: Pending Last Dose of Anticoagulation: Aspirin and Heparin Op Note: No Pacemaker Check: No Implants: no Consults: ID DM: yes Cardiac Surgical prep: Yes SIGNATURE: Mercedes Montalvo RN APRN.CNP CHECKED BY: DATE of SERVICE: 2018 TIME of SERVICE: 11:17 AM SIGNATURE: Mercedes Montalvo RN APRN.CNP PAGER:[phone] DATE of SERVICE: 2018 TIME of SERVICE: 12:46 PM CASE MANAGEM Observed: 2018 Status: COMPLETED Source: [place]ER[place] 11:53 AM [facility] REPOSITORY HNO ID: [id number] Author: Fabiola LernerRn) LIN Anders Service: Care Management Author Type: Registered Nurse Type: Care Mgt Progress Note Filed: 2018 12:01 PM Note Text: CARE MANAGEMENT PROGRESS NOTE SERVICE DATE: 2018 SERVICE TIME: 11:53 AM LOS: 6 days Needs Prior to Discharge: To Be Determined PT evaluation indicates recommendation for OP PT. CTS evaluation for surgery - awaiting surgical plan/date. Will follow and plan for discharge accordingly. SIGNATURE: Fabiola Anders RN PATIENT NAME: Rick George Jr. DATE: 2018 TIME: 11:53 AM PAGER/CONTACT #: [phone] ECG COMPLETE W Observed: 2018 Status: F Source: GERALDINE INTERPRETATION 10:48 AM [facility] REPOSITORY NAME : RICK GEORGE PID : [id number] : 1960 Gender : Male Race : ORD : [id number] Procedure Date : 2018 10:48:32 Edit Date : Apr 17 2018 16:37:05 Diagnosis:NORMAL SINUS RHYTHM NONSPECIFIC T WAVE ABNORMALITY ABNORMAL ECG Confirmed by PRUDENCIO ADAMS M.D. ([id number]) on 04/17/2018 4:15:14 PM Ventricular Rate : 75 BPM Atrial Rate : 75 BPM P-R Interval : 190 ms QRS Duration : 98 ms Q-T Interval : 400 ms QTC Calculation(Bezet) : 446 ms P [place] : 35 degrees R [place] : -12 degrees T [place] : 266 degrees Test Reason : CAD Location : 361 : J61 13 Overread By : PRUDENCIO ADAMS M.D. Edited By : PRUDENCIO ADAMS M.D. Referred By : , Acquired by : CHANDRIKA MORIN PROGRESS Observed: 2018 Status: COMPLETED Source: [place]ER[place] 8:37 AM [facility] [place] REPOSITORY HNO ID: [id number] Author: Zoe Rodriguez Service: Cardiovascular Medicine Author Type: Physician Type: Progress Notes Filed: 2018 12:18 PM Note Text: [facility] PROGRESS NOTE (Template ID [id number]) Rick George JrJosh [id number] PRIMARY SERVICE: [facility] Clinical [facility]iology A HOSPITAL DAY: # 6 INTERVAL HISTORY NAEO Pt restless, wants to know when CABG Patient states BM normal, no cough, no CP -3L negative yesterday wo diuresis, likely I/O mistake Awaiting surgical plan PHYSICAL EXAM BP 111/67 Pulse 79 Temp 36.6 ?C (97.9 ?F) (Oral) Resp 18 Ht 177.8 cm (5' 10) Wt 88.4 kg (194 lb 12.8 oz) SpO2 98% BMI 27.95 kg/m? Intake/Output Summary (Last 24 hours) at 04/10/18 0841 Last data filed at 04/10/18 0736 Gross per 24 hour Intake 120 ml Output 3775 ml Net -3655 ml General Appearance: Well developed, Well nourished , NAD HEENT: PERRLA, EOM's intact, Sclera anicteric, Fair dentition and JVD - no Lungs: soft Crackles b/l bases Heart: Regular rate AND rhythm, nml S1, S2, no m/r/g Abdomen: Soft, Non-tender and Bowel sounds present Skin: Warm and Dry Musculoskeletal: No deformities and No joint deformities Neurologic/Psychiatric: Oriented to time, place AND person MEDICATIONS Current hospital medications: NaCl 0.9% 1,000 mL iv bolus 1,000 mL INTRAVENOUS ONCE insulin glargine 10 Units pen (long acting) (LANTUS SOLOSTAR, BASAGLAR KWIKPEN) 10 Units SUBCUTANEOUS DAILY (8 AM) 0.9% NaCl 3-5 mL 3-5 mL INTRAVENOUS q 12 H benzonatate 100 mg cap(s) (TESSALON PERLE) 100 mg ORAL TID traMADol 50 mg tab(s) (ULTRAM) 50 mg ORAL q 6 H PRN gabapentin 800 mg tab(s) (NEURONTIN) 800 mg ORAL TID cetirizine 10 mg tab(s) (ZyrTEC) 10 mg ORAL DAILY vancomycin 125 mg oral liquid (VANCOCIN) 125 mg ORAL QID nortriptyline 50 mg cap(s) (PAMELOR) 50 mg ORAL AT BEDTIME tiZANidine 4 mg tab(s) (ZANAFLEX) 4 mg ORAL TID PRN dextrose 40 % 15 g 15 g ORAL PRN glucagon 1 mg injection (GLUCAGEN) 1 mg INTRAMUSCULAR PRN dextrose 50% in water 25 mL syringe 12.5 g INTRAVENOUS PRN carvedilol 6.25 mg tab(s) (COREG) 6.25 mg ORAL BID w MEALS aspirin 81 mg chewable tab(s) 81 mg ORAL DAILY rosuvastatin 20 mg tab(s) (CRESTOR) 20 mg ORAL AT BEDTIME heparin 5,000 Units injection 5,000 Units SUBCUTANEOUS q 12 H insulin lispro injection (rapid acting) (HumaLOG) SUBCUTANEOUS w MEALS insulin lispro injection (rapid acting) (HumaLOG) SUBCUTANEOUS AT BEDTIME DATA Recent Labs 04/05/18 0531 04/04/18 0158 04/04/18 0008 WBC 11.15* 14.34* 17.22* HB 11.3* 10.8* 6.0* HCT 34.5* 33.6* 19.1* PLT 267 257 350 Recent Labs 04/05/18 0531 04/04/18 0008 NA 138 139 K 3.9 3.7 CO2 23 23 BUN 15 25* CREAT 0.79 0.95 GLUC 107* 130* MG -- 1.9 IMAGING Reviewed ASSESSMENT AND PLAN Rick George Jr. is a 57 year old male w PMH of DM2 c/b neuropathy, HTN, HLD, PAD/PVD, and CVA who presented for evaluation for PCI vs CABG after an NSTEMI on 04/01/18. Pt has multivessel dz and DM2 so will likely go for CABG, however patient has at least one active infection, Cdiff and possible PNA. Will start CAD Rxs, prep for CABG, and treat/work up infections. PLAN FOR TODAY - Follow up CTS plans for surgery - page EDUARDO Montalvo - Hold IVF today as I/Os are likely incorrect, will fup w RN - ID approves of CABG while on po vanc - Cont glargine at half home dose, follow BG - wound care on board for R heel ulcer from nail - Cont PT for L hip Neuro #Peripheral Neuropathy 2/2 DM2 Mild numbness in feet b/l Plan Cont Gabapentin ? CV #NSTEMI in s/o 3VDz Tn peak 6, BNP ~600 Plan CABG w/u complete, accepted by Marko for surgery. Date depending on necessary treatement duraiton for c diff ? #CAD LMT 25% LAD Prox 85%, Dist 75% LCX Prox 75%, Dist 85% RCA 95% Plan ASA Hold Brillinta for upcoming CABG No heparin gtt given last CP on Tuesday, no current CP Coreg lisinopril Rosuvastatin. No signs of myopathy ? #HTN Plan Coreg lisinopril if BP room ? Pulmonary #pulmonary edema - resolved ? GI #Cdiff Pos test at OSH, pt received Flagyl Some improvement in frequency of diarrhea on Flagyl Plan Vancomycin tx length 10 days ? Endocrine #DM2 A1c ~6, c/b neuropathy Plan SSI Insulin ? Diet Hrt Healthy 2gNa DVT ppx - heparin sq GI ppx - not indicated Case to be discussed with staff Blanco Paul MD IM PGY-1 pgr [phone] [facility] STAFF PHYSICIAN NOTE OF PERSONAL INVOLVEMENT IN CARE Impression/Plan: Mr. 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 Zhu, hopefully this week. I have reviewed the documentation obtained and documented by the Fellow/Resident/COMPUTER FORENSICS EXAMINER/PA and have reviewed and updated the problem list as appropriate. I have personally performed a face to face assessment of the patient and have personally participated in the rubi components. I have discussed the case and management of the patient's care. STAFF PHYSICIAN: Zoe Rodriguez MD Date of Service: 04/10/18 CBC Collected: 2018 Status: F Source: GERALDINE 6:12 AM [facility] REPOSITORY TYPE CODE TESTS RESULT OUT OF REFERENCE UNITS RANGE LAB WBC 3.70-11.00 k/uL WBC 9.06 LAB RBC 4.20-6.00 m/uL Low RBC 3.66 LAB HGB 13.0-17.0 g/dL Low Hemoglobin 11.3 LAB HCT 39.0-51.0 % Low Hematocrit 36.0 LAB MCV 80.0-100.0 fL MCV 98.4 LAB MCH 26.0-34.0 pG MCH 30.9 LAB MCHC 30.5-36.0 g/dL MCHC 31.4 LAB RDWCV 11.5-15.0 % RDW-CV 13.2 LAB PLTCT 150-400 k/uL Platelet Count 384 LAB MPV 9.0-12.7 fL MPV 10.1 LAB ABSNUC <0.01 k/uL Absolute nRBC <0.01 Performed By: #### CBC, BMP #### [facility] [address] [place], [place] [address] BASIC METABOLIC PANL Collected: 2018 Status: F Source: GERALDINE 6:12 AM [facility] REPOSITORY TYPE CODE TESTS RESULT OUT OF REFERENCE UNITS RANGE LAB GLU 74-99 mg/dL High Glucose 115 Result Comment: The [place] [employer] (ADA) provides guidance for cutoff values for fasting glucose and random glucose. The ADA defines fasting as no caloric intake for at least 8 hours. Fas ting plasma glucose results between 100 to 125 mg/dL indicate increased risk for diabetes (prediabetes). Fasting plasma glucose results greater than or equal to 126 mg/dL meet the criteria for diagnosis of diabetes. In the absence of unequivocal hyperglycemia, results should be confirmed by repeat testing. In a patient with classic symptoms of hyperglycemia or hyperglycemic crisis, random plasma glucose results greater than or equal to 200 mg/dL meet the criteria for diagnosis of diabetes. Reference: Standards of Medical Care in Diabetes 2016, [place] [employer]. Diabetes Care. 2016.39(Suppl 1). LAB BUN 9-24 mg/dL BUN 11 LAB CRET 0.73-1.22 mg/dL Creatinine 0.99 LAB NA 136-144 mmol/L Sodium 142 LAB K 3.7-5.1 mmol/L Potassium High 5.5 LAB CL 97-105 mmol/L Chloride 100 LAB CO2 22-30 mmol/L CO2 High 32 LAB AGAP 9-18 mmol/L Anion Gap 10 LAB CA 8.5-10.2 mg/dL Calcium, Total 9.8 LAB GFRAA eGFR- Amer. >60 LAB GFRNAA . eGFR-All Other Races >60 Result Comment: eGFR (Estimated GFR) Units of measure: mL/min/1.73 meters squared eGFR is derived from the reexpressed MDRD Study equation using the following parameters: serum creatinine, age, gender and race. The creatinine assay has been calibrated to be traceable to IDMS. An eGFR <60 mL/min/1.73m2 for >3 months is consistent with chronic kidney disease. Refer to KDOQI guidelines for clinical interpretation. In patients with unstable renal function, e.g. those with acute kidney injury, the eGFR may not accurately reflect actual GFR. Performed By: #### CBC, BMP #### [facility] [address] [place], [place] [address] PROGRESS Observed: 04/09/2018 Status: COMPLETED Source: GERALDINE 10:48 AM [facility] REPOSITORY HNO ID: [id number] Author: Van Mcguire Service: Cardiovascular Medicine Author Type: Physician Type: Progress Notes Filed: 04/09/2018 11:06 AM Note Text: [facility] PROGRESS NOTE (Template ID [id number]) Rick George Jr. [id number] PRIMARY SERVICE: [facility] Clinical Cardiology A HOSPITAL DAY: # 5 INTERVAL HISTORY NAEO Patient states BM normal -1.2L negative yesterday Awaiting surgical plan PHYSICAL EXAM BP 104/66 Pulse 65 Temp 36.7 ?C (98 ?F) (Oral) Resp 16 Ht 177.8 cm (5' 10) Wt 89.2 kg (196 lb 9.6 oz) SpO2 97% BMI 28.21 kg/m? Intake/Output Summary (Last 24 hours) at 04/09/18 1048 Last data filed at 04/09/18 0832 Gross per 24 hour Intake 240 ml Output 2200 ml Net -1960 ml General Appearance: Well developed, Well nourished , NAD HEENT: PERRLA, EOM's intact, Sclera anicteric, Fair dentition and JVD - no Lungs: soft Crackles b/l bases Heart: Regular rate AND rhythm, nml S1, S2, no m/r/g Abdomen: Soft, Non-tender and Bowel sounds present Skin: Warm and Dry Musculoskeletal: No deformities and No joint deformities Neurologic/Psychiatric: Oriented to time, place AND person MEDICATIONS Current hospital medications: insulin glargine 10 Units pen (long acting) (LANTUS SOLOSTAR, BASAGLAR KWIKPEN) 10 Units SUBCUTANEOUS DAILY (8 AM) 0.9% NaCl 3-5 mL 3-5 mL INTRAVENOUS q 12 H benzonatate 100 mg cap(s) (TESSALON PERLE) 100 mg ORAL TID traMADol 50 mg tab(s) (ULTRAM) 50 mg ORAL q 6 H PRN gabapentin 800 mg tab(s) (NEURONTIN) 800 mg ORAL TID cetirizine 10 mg tab(s) (ZyrTEC) 10 mg ORAL DAILY vancomycin 125 mg oral liquid (VANCOCIN) 125 mg ORAL QID nortriptyline 50 mg cap(s) (PAMELOR) 50 mg ORAL AT BEDTIME tiZANidine 4 mg tab(s) (ZANAFLEX) 4 mg ORAL TID PRN dextrose 40 % 15 g 15 g ORAL PRN glucagon 1 mg injection (GLUCAGEN) 1 mg INTRAMUSCULAR PRN dextrose 50% in water 25 mL syringe 12.5 g INTRAVENOUS PRN carvedilol 6.25 mg tab(s) (COREG) 6.25 mg ORAL BID w MEALS aspirin 81 mg chewable tab(s) 81 mg ORAL DAILY rosuvastatin 20 mg tab(s) (CRESTOR) 20 mg ORAL AT BEDTIME heparin 5,000 Units injection 5,000 Units SUBCUTANEOUS q 12 H insulin lispro injection (rapid acting) (HumaLOG) SUBCUTANEOUS w MEALS insulin lispro injection (rapid acting) (HumaLOG) SUBCUTANEOUS AT BEDTIME DATA Recent Labs 04/05/18 0531 04/04/18 0158 04/04/18 0008 WBC 11.15* 14.34* 17.22* HB 11.3* 10.8* 6.0* HCT 34.5* 33.6* 19.1* PLT 267 257 350 Recent Labs 04/05/18 0531 04/04/18 0008 NA 138 139 K 3.9 3.7 CO2 23 23 BUN 15 25* CREAT 0.79 0.95 GLUC 107* 130* MG -- 1.9 IMAGING Reviewed ASSESSMENT AND PLAN Rick George . is a 57 year old male w PMH of DM2 c/b neuropathy, HTN, HLD, PAD/PVD, and CVA who presented for evaluation for PCI vs CABG after an NSTEMI on 04/01/18. Pt has multivessel dz and DM2 so will likely go for CABG, however patient has at least one active infection, Cdiff and possible PNA. Will start CAD Rxs, prep for CABG, and treat/work up infections. PLAN FOR TODAY - Follow up CTS plans for surgery - ID approves of CABG while on po vanc - Cont glargine at half home dose, follow BG - wound care on board for R heel ulcer from nail - Cont PT for L hip - IV LR today to keep net even Neuro #Peripheral Neuropathy 2/2 DM2 Mild numbness in feet b/l Plan Cont Gabapentin ? CV #NSTEMI in s/o 3VDz Tn peak 6, BNP ~600 Plan CABG w/u complete, accepted by Marko for surgery. Date depending on necessary treatement duraiton for c diff ? #CAD LMT 25% LAD Prox 85%, Dist 75% LCX Prox 75%, Dist 85% RCA 95% Plan ASA Hold Brillinta for upcoming CABG No heparin gtt given last CP on Tuesday, no current CP Coreg lisinopril Rosuvastatin. No signs of myopathy ? #HTN Plan Coreg lisinopril if BP room ? Pulmonary #pulmonary edema - resolved ? GI #Cdiff Pos test at OSH, pt received Flagyl Some improvement in frequency of diarrhea on Flagyl Plan Vancomycin tx length 10 days ? Endocrine #DM2 A1c ~6, c/b neuropathy Plan SSI Insulin ? Diet Hrt Healthy 2gNa DVT ppx - heparin sq GI ppx - not indicated Case to be discussed with staff Froylan Watters MD IM PGY-2 04/09/2018 [facility] STAFF PHYSICIAN NOTE OF PERSONAL INVOLVEMENT IN CARE IMPRESSION: Patient is a 57 year old male with: #Coronary artery disease status post NSTEMI and found to have severe multivessel disease (I have reviewed his cardiac catheterization and have uploaded to [employer]) #PAD #Diabetes mellitus #Prior CVA #Mixed hyperlipidemia #Current clostridium difficile infection ? PLAN: We appreciate the input of the CTS and ID teams. The ID team feels there is no contraindication for surgery at the current time since his diarrhea is much improved. So we will update the CTS team. Plan for CABG with Dr. Zhu as he sees fit. Continue course of PO vancomycin in the meantime. I have reviewed the documentation obtained and documented by the Resident and have reviewed and updated the problem list as appropriate. I have personally performed a face to face assessment of the patient and have personally participated in the rubi components. I have discussed the case and management of the patient's care. STAFF PHYSICIAN: Van Mcguire MD DATE OF SERVICE: April 09, 2018 TIME OF SERVICE: 11:05 AM CBC Collected: 04/09/2018 Status: F Source: GERALDINE 3:45 AM [facility] REPOSITORY TYPE CODE TESTS RESULT OUT OF REFERENCE UNITS RANGE LAB WBC 3.70-11.00 k/uL WBC 9.28 LAB RBC 4.20-6.00 m/uL Low RBC 3.55 LAB HGB 13.0-17.0 g/dL Low Hemoglobin 10.8 LAB HCT 39.0-51.0 % Low Hematocrit 34.6 LAB MCV 80.0-100.0 fL MCV 97.5 LAB MCH 26.0-34.0 pG MCH 30.4 LAB MCHC 30.5-36.0 g/dL MCHC 31.2 LAB RDWCV 11.5-15.0 % RDW-CV 13.2 LAB PLTCT 150-400 k/uL Platelet Count 362 LAB MPV 9.0-12.7 fL MPV 10.0 LAB ABSNUC <0.01 k/uL Absolute nRBC <0.01 Performed By: #### CBC, PT, CMP #### [facility] [address] [place], [place] [address] PROTIME Collected: 04/09/2018 Status: F Source: GERALDINE 3:45 AM [facility] REPOSITORY TYPE CODE TESTS RESULT OUT OF RANGE REFERENCE UNITS LAB PSEC 9.7-13.0 sec PT Sec 10.7 LAB INR 0.9-1.3 PT INR 1.0 Result Comment: Vitamin K Antagonist (VKA) Therapeutic Range: INR 2 to 3 (Target INR of 2.5) Note: For patients treated with VKA drugs, such as warfarin, the [place] [employer] 2012 Guideline recommends a therapeutic INR range of 2 to 3 (target INR of 2.5). This recommendation includes high-risk patients with antiphospholipid syndrome with previous arterial or venous thromboembolism, current-generation mechanical or bioprosthetic aortic heart valve replacement. Note: Patients with mechanical aortic valve replacement and additional risk factors for thromboembolic events (atrial fibrillation, previous thromboembolism, LV dysfunction, hypercoagulable conditions) or an older generation mechanical AVR (i.e., ball in-Cage) or any mechanical MVR should have a INR therapeutic range of 2.5 to 3.5 (target INR of 3). Guyatt GH, et al. Chest 2012, 141:7S-47S David RA, et al. [facility] 2017, 70: 252-289 Performed By: #### CBC, PT, CMP #### [facility] [address] [place], [place] [address] COMP METABOLIC PANEL Collected: 04/09/2018 Status: F Source: GERALDINE 3:45 AM [facility] REPOSITORY TYPE CODE TESTS RESULT OUT OF REFERENCE UNITS RANGE LAB TP 6.3-8.0 g/dL Protein, Total 6.6 LAB ALB 3.9-4.9 g/dL Low Albumin 3.2 LAB CA 8.5-10.2 mg/dL Calcium, Total 9.2 LAB TBIL 0.2-1.3 mg/dL Bilirubin, Total 0.2 LAB ALKP 36-108 U/L Alkaline Phosphatase 62 LAB AST 14-40 U/L AST 39 Result Comment: Results may be falsely increased due to interference by hemolysis. Suggest reorder as clinically indicated. LAB GLU 74-99 mg/dL High Glucose 155 Result Comment: The [place] [employer] (ADA) provides guidance for cutoff values for fasting glucose and random glucose. The ADA defines fasting as no caloric intake for at least 8 hours. Fas ting plasma glucose results between 100 to 125 mg/dL indicate increased risk for diabetes (prediabetes). Fasting plasma glucose results greater than or equal to 126 mg/dL meet the criteria for diagnosis of diabetes. In the absence of unequivocal hyperglycemia, results should be confirmed by repeat testing. In a patient with classic symptoms of hyperglycemia or hyperglycemic crisis, random plasma glucose results greater than or equal to 200 mg/dL meet the criteria for diagnosis of diabetes. Reference: Standards of Medical Care in Diabetes 2016, [place] [employer]. Diabetes Care. 2016.39(Suppl 1). LAB BUN 9-24 mg/dL BUN 12 LAB CRET 0.73-1.22 mg/dL Creatinine 0.90 LAB NA 136-144 mmol/L Sodium 138 LAB K 3.7-5.1 mmol/L Potassium 5.1 Result Comment: Results may be falsely increased due to interference by hemolysis. Suggest reorder as clinically indicated. LAB CL 97-105 mmol/L Chloride 99 LAB CO2 22-30 mmol/L CO2 25 LAB AGAP 9-18 mmol/L Anion Gap 14 LAB ALT 10-54 U/L ALT 37 Result Comment: Results may be falsely increased due to interference by hemolysis. Suggest reorder as clinically indicated. LAB GFRAA eGFR- Amer. >60 LAB GFRNAA . eGFR-All Other Races >60 Result Comment: eGFR (Estimated GFR) Units of measure: mL/min/1.73 meters squared eGFR is derived from the reexpressed MDRD Study equation using the following parameters: serum creatinine, age, gender and race. The creatinine assay has been calibrated to be traceable to IDMS. An eGFR <60 mL/min/1.73m2 for >3 months is consistent with chronic kidney disease. Refer to KDOQI guidelines for clinical interpretation. In patients with unstable renal function, e.g. those with acute kidney injury, the eGFR may not accurately reflect actual GFR. Performed By: #### CBC, PT, CMP #### [facility] [address] [place], [place] [address] CONSULT PROG Observed: 04/08/2018 Status: COMPLETED Source: GERALDINE 10:58 AM [facility] REPOSITORY HNO ID: [id number] Author: Marita Baptiste Service: Infectious Disease Author Type: Physician Type: Consult Progress Note Filed: 04/08/2018 7:03 PM Note Text: INFECTIOUS DISEASE CONSULT SERVICE PROGRESS NOTE Date: April 08, 2018 Patient Name: Rick George Jr. Interval Events: Wbc normalized Afebrile 1 bm since I last saw hime Denies pain MEDICATIONS Medications reviewed. Current hospital medications: insulin glargine 10 Units pen (long acting) (LANTUS SOLOSTAR, BASAGLAR KWIKPEN) 10 Units SUBCUTANEOUS DAILY (8 AM) 0.9% NaCl 3-5 mL 3-5 mL INTRAVENOUS q 12 H benzonatate 100 mg cap(s) (TESSALON PERLE) 100 mg ORAL TID traMADol 50 mg tab(s) (ULTRAM) 50 mg ORAL q 6 H PRN gabapentin 800 mg tab(s) (NEURONTIN) 800 mg ORAL TID cetirizine 10 mg tab(s) (ZyrTEC) 10 mg ORAL DAILY vancomycin 125 mg oral liquid (VANCOCIN) 125 mg ORAL QID nortriptyline 50 mg cap(s) (PAMELOR) 50 mg ORAL AT BEDTIME tiZANidine 4 mg tab(s) (ZANAFLEX) 4 mg ORAL TID PRN dextrose 40 % 15 g 15 g ORAL PRN glucagon 1 mg injection (GLUCAGEN) 1 mg INTRAMUSCULAR PRN dextrose 50% in water 25 mL syringe 12.5 g INTRAVENOUS PRN carvedilol 6.25 mg tab(s) (COREG) 6.25 mg ORAL BID w MEALS aspirin 81 mg chewable tab(s) 81 mg ORAL DAILY rosuvastatin 20 mg tab(s) (CRESTOR) 20 mg ORAL AT BEDTIME heparin 5,000 Units injection 5,000 Units SUBCUTANEOUS q 12 H insulin lispro injection (rapid acting) (HumaLOG) SUBCUTANEOUS w MEALS insulin lispro injection (rapid acting) (HumaLOG) SUBCUTANEOUS AT BEDTIME EXAMINATION: Vital signs: BP 104/68 Pulse 77 Temp 36.7 ?C (98 ?F) (Oral) Resp 16 Ht 177.8 cm (5' 10) Wt 89.1 kg (196 lb 8 oz) SpO2 97% BMI 28.19 kg/m? Temp (24hrs), Av.7 ?C (98.1 ?F), Min:36.5 ?C (97.7 ?F), Max:36.9 ?C (98.5 ?F) GENERAL APPEARANCE:alert, in no acute distress SKIN: negative HEAD/SINUSES: No significant findings. EYES: PERRLA, conjunctiva clear LUNGS: Clear to auscultation, No crackles. HEART: Regular rate and rhythm ABDOMEN: Soft, Non-tender, Nondistended, Normal bowel sounds EXTREMITIES: negative edema NEURO: Awake, alert and oriented x 3, no involuntary motions. LABORATORY DATA: WBC (k/uL) Date Value 04/08/2018 8.06 04/07/2018 11.56 04/06/2018 11.83 Hemoglobin (g/dL) Date Value 04/08/2018 11.2 04/07/2018 11.0 04/06/2018 10.8 Platelet Count (k/uL) Date Value 04/08/2018 356 04/07/2018 327 04/06/2018 305 Creatinine (mg/dL) Date Value 04/08/2018 0.95 04/07/2018 0.89 04/06/2018 0.81 MICROBIOLOGY DATA: reviewed IMAGING DATA: Films personally reviewed. ASSESSMENT/RECOMMENDATIONS: Recent treatment for staph abscess after stepping on nail. Treated with antibiotics and improved about 3 weeks ago no further symptoms Had recent episode of severe coughing after exposure to possibly moldy hay--now resolved ?hypersensitivity c diff--per patient had about 20 bms/day prior to calling PCP and treated with flagyl--stool became more solidified, decreased frequency on Tues Now having more solid stools ~ 1 daily ? Main concern in setting of c diff--frequent BMs in setting of surgery--this has improved. Small risk of worsening with perioperative antibiotcs, maintain oral vanco Foot infection--resolved ? Continue PO vancomycin--standard treatment course is 10 days, however given patient will need perioperative antibiotics in setting of cardiac surgery will maintain oral vancomycin through planned surgery No ID contraindication to planned surgery at this time Marita Baptiste MD Staff physician Infectious Diseases Pager: [phone] Date and Time of Service: April 08, 2018 / PROGRESS Observed: 04/08/2018 Status: COMPLETED Source: GERALDINE 10:36 AM [facility] REPOSITORY HNO ID: [id number] Author: Van Mcguire Service: Cardiovascular Medicine Author Type: Physician Type: Progress Notes Filed: 04/08/2018 11:47 AM Note Text: [facility] PROGRESS NOTE (Template ID [id number]) Rick George Jr. [id number] PRIMARY SERVICE: [facility] Clinical Cardiology A HOSPITAL DAY: # 4 INTERVAL HISTORY NAEO Pt feels like cough and diarrhea have improved Stools are almost normal, only 1 BM yesterday Pt says hip is improved after PT PHYSICAL EXAM BP 104/68 Pulse 77 Temp 36.7 ?C (98 ?F) (Oral) Resp 16 Ht 177.8 cm (5' 10) Wt 89.1 kg (196 lb 8 oz) SpO2 97% BMI 28.19 kg/m? Intake/Output Summary (Last 24 hours) at 04/08/18 1037 Last data filed at 04/08/18 0300 Gross per 24 hour Intake 1605 ml Output 1725 ml Net -120 ml General Appearance: Well developed, Well nourished , Obese and No acute distress HEENT: PERRLA, EOM's intact, Sclera anicteric, Fair dentition and JVD - no Lungs: Crackles b/l bases Heart: Regular rate AND rhythm, nml S1, S2, no m/r/g Abdomen: Soft, Non-tender and Bowel sounds present Skin: Warm and Dry Musculoskeletal: No deformities and No joint deformities Neurologic/Psychiatric: Oriented to time, place AND person MEDICATIONS Current hospital medications: insulin glargine 10 Units pen (long acting) (LANTUS SOLOSTAR, BASAGLAR KWIKPEN) 10 Units SUBCUTANEOUS DAILY (8 AM) 0.9% NaCl 3-5 mL 3-5 mL INTRAVENOUS q 12 H benzonatate 100 mg cap(s) (TESSALON PERLE) 100 mg ORAL TID traMADol 50 mg tab(s) (ULTRAM) 50 mg ORAL q 6 H PRN gabapentin 800 mg tab(s) (NEURONTIN) 800 mg ORAL TID cetirizine 10 mg tab(s) (ZyrTEC) 10 mg ORAL DAILY vancomycin 125 mg oral liquid (VANCOCIN) 125 mg ORAL QID nortriptyline 50 mg cap(s) (PAMELOR) 50 mg ORAL AT BEDTIME tiZANidine 4 mg tab(s) (ZANAFLEX) 4 mg ORAL TID PRN dextrose 40 % 15 g 15 g ORAL PRN glucagon 1 mg injection (GLUCAGEN) 1 mg INTRAMUSCULAR PRN dextrose 50% in water 25 mL syringe 12.5 g INTRAVENOUS PRN carvedilol 6.25 mg tab(s) (COREG) 6.25 mg ORAL BID w MEALS aspirin 81 mg chewable tab(s) 81 mg ORAL DAILY rosuvastatin 20 mg tab(s) (CRESTOR) 20 mg ORAL AT BEDTIME heparin 5,000 Units injection 5,000 Units SUBCUTANEOUS q 12 H insulin lispro injection (rapid acting) (HumaLOG) SUBCUTANEOUS w MEALS insulin lispro injection (rapid acting) (HumaLOG) SUBCUTANEOUS AT BEDTIME DATA Recent Labs 04/05/18 0531 04/04/18 0158 04/04/18 0008 WBC 11.15* 14.34* 17.22* HB 11.3* 10.8* 6.0* HCT 34.5* 33.6* 19.1* PLT 267 257 350 Recent Labs 04/05/18 0531 04/04/18 0008 NA 138 139 K 3.9 3.7 CO2 23 23 BUN 15 25* CREAT 0.79 0.95 GLUC 107* 130* MG -- 1.9 IMAGING Reviewed ASSESSMENT AND PLAN Rick George Jr. is a 57 year old male w PMH of DM2 c/b neuropathy, HTN, HLD, PAD/PVD, and CVA who presented for evaluation for PCI vs CABG after an NSTEMI on 04/01/18. Pt has multivessel dz and DM2 so will likely go for CABG, however patient has at least one active infection, Cdiff and possible PNA. Will start CAD Rxs, prep for CABG, and treat/work up infections. PLAN FOR TODAY - TB with CTS re CABG plan next week - ID approves of CABG while on po vanc - Cont glargine at half home dose, follow BG - wound care on board for R heel ulcer from nail - Cont PT for L hip Neuro #Peripheral Neuropathy 2/2 DM2 Mild numbness in feet b/l Plan Cont Gabapentin ? CV #NSTEMI in s/o 3VDz Tn peak 6, BNP ~600 Plan CABG w/u complete, accepted by [facility] for surgery. Date depending on necessary treatement duraiton for c diff ? #CAD LMT 25% LAD Prox 85%, Dist 75% LCX Prox 75%, Dist 85% RCA 95% Plan ASA Hold Brillinta for upcoming CABG No heparin gtt given last CP on Tuesday, no current CP Coreg lisinopril Rosuvastatin. No signs of myopathy ? #HTN Plan Coreg lisinopril if BP room ? Pulmonary #pulmonary edema - resolved ? GI #Cdiff Pos test at OSH, pt received Flagyl Some improvement in frequency of diarrhea on Flagyl Plan Vancomycin tx length 10 days ? Endocrine #DM2 A1c ~6, c/b neuropathy Plan SSI Insulin ? Diet Hrt Healthy 2gNa DVT ppx - heparin sq GI ppx - not indicated Case to be discussed with staff Blanco Paul MD IM PGY1 [id number] [facility] STAFF PHYSICIAN NOTE OF PERSONAL INVOLVEMENT IN CARE IMPRESSION: Patient is a 57 year old male with: #Coronary artery disease status post NSTEMI and found to have severe multivessel disease (I have reviewed his cardiac catheterization and have uploaded to [employer]) #PAD #Diabetes mellitus #Prior CVA #Mixed hyperlipidemia #Current clostridium difficile infection ? PLAN: We appreciate the input of the CTS and ID teams. The ID team feels there is no contraindication for surgery at the current time since his diarrhea is much improved. So we will update the CTS team. Plan for CABG with Dr. Zhu as he sees fit. I have reviewed the documentation obtained and documented by the Resident and have reviewed and updated the problem list as appropriate. I have personally performed a face to face assessment of the patient and have personally participated in the rubi components. I have discussed the case and management of the patient's care. STAFF PHYSICIAN: Van Mcguire MD DATE OF SERVICE: April 08, 2018 TIME OF SERVICE: 11:46 AM CBC Collected: 04/08/2018 Status: F Source: [place] 7:06 AM [facility] REPOSITORY TYPE CODE TESTS RESULT OUT OF REFERENCE UNITS RANGE LAB WBC 3.70-11.00 k/uL WBC 8.06 LAB RBC 4.20-6.00 m/uL Low RBC 3.58 LAB HGB 13.0-17.0 g/dL Low Hemoglobin 11.2 LAB HCT 39.0-51.0 % Low Hematocrit 35.5 LAB MCV 80.0-100.0 fL MCV 99.2 LAB MCH 26.0-34.0 pG MCH 31.3 LAB MCHC 30.5-36.0 g/dL MCHC 31.5 LAB RDWCV 11.5-15.0 % RDW-CV 13.2 LAB PLTCT 150-400 k/uL Platelet Count 356 LAB MPV 9.0-12.7 fL MPV 9.9 LAB ABSNUC <0.01 k/uL Absolute nRBC <0.01 Performed By: #### CBC, PT, CMP #### [facility] [address] [place], [place] [address] PROTIME Collected: 04/08/2018 Status: F Source: [place] 7:06 AM [facility] REPOSITORY TYPE CODE TESTS RESULT OUT OF RANGE REFERENCE UNITS LAB PSEC 9.7-13.0 sec PT Sec 10.7 LAB INR 0.9-1.3 PT INR 1.0 Result Comment: Vitamin K Antagonist (VKA) Therapeutic Range: INR 2 to 3 (Target INR of 2.5) Note: For patients treated with VKA drugs, such as warfarin, the [place] [employer] 2012 Guideline recommends a therapeutic INR range of 2 to 3 (target INR of 2.5). This recommendation includes high-risk patients with antiphospholipid syndrome with previous arterial or venous thromboembolism, current-generation mechanical or bioprosthetic aortic heart valve replacement. Note: Patients with mechanical aortic valve replacement and additional risk factors for thromboembolic events (atrial fibrillation, previous thromboembolism, LV dysfunction, hypercoagulable conditions) or an older generation mechanical AVR (i.e., ball in-Cage) or any mechanical MVR should have a INR therapeutic range of 2.5 to 3.5 (target INR of 3). Michael GH, et al. Chest 2012, 141:7S-47S David RA et al. [facility] 2017, 70: 252-289 Performed By: #### CBC, PT, CMP #### [facility] [address] [place], [place] [address] COMP METABOLIC PANEL Collected: 04/08/2018 Status: F Source: [place] 7:06 AM [facility] REPOSITORY TYPE CODE TESTS RESULT OUT OF REFERENCE UNITS RANGE LAB TP 6.3-8.0 g/dL Protein, Total 6.4 LAB ALB 3.9-4.9 g/dL Low Albumin 3.3 LAB CA 8.5-10.2 mg/dL Calcium, Total 8.7 LAB TBIL 0.2-1.3 mg/dL Bilirubin, Total 0.3 LAB ALKP 36-108 U/L Alkaline Phosphatase 57 LAB AST 14-40 U/L AST 26 LAB GLU 74-99 mg/dL Glucose High 106 Result Comment: The [place] [employer] (ADA) provides guidance for cutoff values for fasting glucose and random glucose. The ADA defines fasting as no caloric intake for at least 8 hours. Fas ting plasma glucose results between 100 to 125 mg/dL indicate increased risk for diabetes (prediabetes). Fasting plasma glucose results greater than or equal to 126 mg/dL meet the criteria for diagnosis of diabetes. In the absence of unequivocal hyperglycemia, results should be confirmed by repeat testing. In a patient with classic symptoms of hyperglycemia or hyperglycemic crisis, random plasma glucose results greater than or equal to 200 mg/dL meet the criteria for diagnosis of diabetes. Reference: Standards of Medical Care in Diabetes 2016, [place] [employer]. Diabetes Care. 2016.39(Suppl 1). LAB BUN 9-24 mg/dL BUN 10 LAB CRET 0.73-1.22 mg/dL Creatinine 0.95 LAB NA 136-144 mmol/L Sodium 141 LAB K 3.7-5.1 mmol/L Potassium 4.3 LAB CL 97-105 mmol/L Chloride 102 LAB CO2 22-30 mmol/L CO2 29 LAB AGAP 9-18 mmol/L Anion Gap 10 LAB ALT 10-54 U/L ALT 31 LAB GFRAA eGFR- Amer. >60 LAB GFRNAA . eGFR-All Other Races >60 Result Comment: eGFR (Estimated GFR) Units of measure: mL/min/1.73 meters squared eGFR is derived from the reexpressed MDRD Study equation using the following parameters: serum creatinine, age, gender and race. The creatinine assay has been calibrated to be traceable to IDMS. An eGFR <60 mL/min/1.73m2 for >3 months is consistent with chronic kidney disease. Refer to KDOQI guidelines for clinical interpretation. In patients with unstable renal function, e.g. those with acute kidney injury, the eGFR may not accurately reflect actual GFR. Performed By: #### CBC, PT, CMP #### [facility] [address] [place], [place] [address] CONSULT Observed: 04/07/2018 Status: COMPLETED Source: [place] 12:48 PM [facility] REPOSITORY HNO ID: [id number] Author: Marita Baptiste Service: Infectious Disease Author Type: Physician Type: Consults Filed: 04/07/2018 9:29 PM Note Text: INITIAL CONSULT INFECTIOUS DISEASE GENERAL ID SERVICE SERVICE DATE: 04/07/2018 SERVICE TIME: 12:48 PM Patient: Rick George Age: [age] year old Sex: male Patient is seen at the text paged request of Dr. Araujo for my opinion regarding pt with 3 vessel CAD scheduled for CABG but has active c diff infection. My final recommendations will be communicated back to the requesting physician by way of copy of this note or shared electronic medical record. SUBJECTIVE: HISTORY HISTORY OF PRESENT ILLNESS: 57 year old male w PMH of DM2 c/b neuropathy, HTN, HLD, PAD/PVD, and CVA who presented for evaluation for PCI vs CABG after an NSTEMI on 04/01/18. His complaints started 2 week as cough - mainly dry, but some times violent to the point that he had chest pain that he thought was due to a rib fracture. He also had some chills, rigor but no definite fever. A week before admission, started to develop SOB along with diarrhea for which he was admitted locally. He was found to have NSTEMI and LHC showed triple vessel disease. C.diff test was positive and was started on flagyl. Antibiotics were changed to vancomycin on admission for C.diff. He is currently scheduled for CABG pending ID clearance. His diarrhea has resolved. Stool are ground beef consistency and denied any cough SOB or chest pain. He recently stepped on a nail and had secondary infection of R foot. As per patient, culture grew staph. He was treated with antibiotics with complete resolution. PAST MEDICAL HISTORY Diagnosis Date - Cataract b/l, eye exam 05/29/13 - CTS (carpal tunnel syndrome) 10/2013 b/l, chronic, Dr. 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 Mazin Hinojosa Neuro, likely from DM and Vitamin B12 defic - Stroke ([facility]) 10/01/13 - Ulnar neuropathy 10/2013 b/l, chronic, Dr. Mazin Hinojosa EMG - Vitamin D deficiency 11/2013 PAST SURGICAL HISTORY Procedure Laterality Date - DISCISSION,2ND CATARACT,LASER 06/07/2013 Yag Capsulotomy-Right eye - LASER, SECONDARY CATARACT 2006 OU - PAST SURGICAL HISTORY OF 02/2013 Amputation Right Gt toe Social History Marital status: Domestic Partner Spouse name: Years of education: Number of children: 3 Occupational History Occupation Employer Comment [employer] Social History Main Topics Smoking status: Never Smoker Smokeless tobacco: Former User Types: Chew Alcohol use: Yes 12.0 oz/week Cans of Beer (12oz): 8 per week Comment: 1-2 per day Drug use: No Sexual activity: Yes Partners with: Female FAMILY HISTORY Problem Relation Age of Onset - Diabetes Mother - Heart Father Immunization History Administered Date(s) Administered Influenza Seasonal Inj Quadrivalent Age 3+ 09/01/2016 07/27/2017 Pneumovax 07/27/2017 Tdap (Age 7+) 04/30/2013 Tetanus Diphtheria Booster (Age >7) Pres Free 02/17/2018 Current medications reviewed. reviewed ALLERGY HISTORY: ALLERGIES Allergen Reactions - Lipitor [Atorvastat* Contraindication-Medical Surgical Elevated LFTs and elevated CK level - Metformin Diarrhea REVIEW OF SYSTEMS: GENERAL: Denies fever, chills, night sweats HEENT: Negative for frequent or significant headaches. RESPIRATORY: Denies any cough, dyspnea, or wheezing. CARDIOVASCULAR: Denies any chest pain with exertion or at rest, palpitations, GASTROINTESTINAL: Denies any nausea, vomiting, abdominal pain, diarrhea. MUSCULOSKELETAL: Denies any joint swelling, joint pain, or loss of range of motion. NEURO: Denies any headaches, confusion. No weakness. HEMATOLOGY/LYMPHATIC/IMMUNOLOGIC: Denies anemia, bruising, bleeding abnormalities, HIV risk factors ENDOCRINE: Denies any heat or cold intolerance, polyuria or polydipsia. OBJECTIVE: PHYSICAL EXAM BP 106/61 Pulse 69 Temp 36.7 ?C (98 ?F) (Oral) Resp 18 Ht 177.8 cm (5' 10) Wt 90.7 kg (199 lb 14.4 oz) SpO2 96% BMI 28.68 kg/m? PHYSICAL EXAMINATION: GEN: alert and oriented HEENT: MMM. Anicteric. NECK: No thyromegaly or nodularity. No JVD. No carotid bruits. CARDIAC: RRR. S1/S2, NMRGC. PULM: CTAB, no crackles or wheezes. Normal work of breathing. ABD: S, NT, ND. Normoactive bowel sounds. No organomegaly. EXT: 2+ distal pulses bilaterally. No edema. SKIN: Warm, well-perfused. No rashes or skin breakdown. NEURO: Alert and oriented to person, place, time. Grossly non-focal motor and sensory exam. PSYCH: Appropriate mood and affect. . OBJECTIVE : LABS reviewed DATA: Imaging: No lung infiltrates on cardiac CT - lung window Microbiology: Urine strept test : pending Blood culture x 1 : negative HIV negative Hep C negative ASSESSMENT: 57 year old male w PMH of DM2 c/b neuropathy, HTN, HLD, PAD/PVD, and CVA who presented for evaluation for PCI vs CABG after an NSTEMI on 04/01/18. # Mild to moderate C.diff colitis - resolving (elevated WBC count but normal creatinine) PLAN( S): - continue PO Vancomycin 125 mg Q 6 H Through surgery - no contraindication for cardiac surgery - Plans are not final until staffed Thank you for involving us in the care of this patient. Dara Bush Fellow, Infectious Diseases Pager:[phone] April 07, 2018 ID STAFF I evaluated the patient and personally participated in the rubi components. I agree with the fellow's findings and plan as documented and have discussed the case and management of the patient's care with the fellow. I have reviewed and verified pertinent data. Recent treatment for staph abscess after stepping on nail. Treated with antibiotics and improved about 3 weeks ago no further symptoms Had recent episode of severe coughing after exposure to possibly moldy hay--now resolved ?hypersensitivity c diff--per patient had about 20 bms/day prior to calling PCP and treated with flagyl--stool became more solidified, decreased frequency on Tues Now having more solid stools ~ 2 daily Main concern in setting of c diff--frequent BMs in setting of surgery--this has improved. Small risk of worsening with perioperative antibiotcs, maintain oral vanco Foot infection--resolved Continue PO vancomycin No ID contraindication to planned surgery at this time Discussed with patient and his daughter Thank you very much for inviting us to participate in the care of this patient. Will continue to follow with you. Marita Baptiste MD Pager: [phone] April 07, 2018 PROGRESS Observed: 04/07/2018 Status: COMPLETED Source: [place] 12:30 PM [facility] REPOSITORY HNO ID: [id number] Author: Van Mcguire Service: Cardiovascular Medicine Author Type: Physician Type: Progress Notes Filed: 04/07/2018 2:21 PM Note Text: [facility] CARDI[facility]ULAR [facility]ICINE PROGRESS NOTE (Template ID [id number]) Rick George Jr. [id number] PRIMARY SERVICE: [facility] Clinical Cardiology A HOSPITAL DAY: # 3 INTERVAL HISTORY NAEO Pt feels like cough and diarrhea have improved Stools are almost normal, only 2 BM Pt states hip is still hurting. PT is consulted for evaluation and treatment PHYSICAL EXAM BP 106/61 Pulse 69 Temp 36.7 ?C (98 ?F) (Oral) Resp 18 Ht 177.8 cm (5' 10) Wt 90.7 kg (199 lb 14.4 oz) SpO2 96% BMI 28.68 kg/m? Intake/Output Summary (Last 24 hours) at 04/07/18 1230 Last data filed at 04/07/18 1000 Gross per 24 hour Intake 960 ml Output 2500 ml Net -1540 ml General Appearance: Well developed, Well nourished , Obese and No acute distress HEENT: PERRLA, EOM's intact, Sclera anicteric, Fair dentition and JVD - no Lungs: Crackles b/l bases Heart: Regular rate AND rhythm, nml S1, S2, no m/r/g Abdomen: Soft, Non-tender and Bowel sounds present Skin: Warm and Dry Musculoskeletal: No deformities and No joint deformities Neurologic/Psychiatric: Oriented to time, place AND person MEDICATIONS Current hospital medications: insulin glargine 10 Units pen (long acting) (LANTUS SOLOSTAR, BASAGLAR KWIKPEN) 10 Units SUBCUTANEOUS DAILY (8 AM) 0.9% NaCl 3-5 mL 3-5 mL INTRAVENOUS q 12 H benzonatate 100 mg cap(s) (TESSALON PERLE) 100 mg ORAL TID traMADol 50 mg tab(s) (ULTRAM) 50 mg ORAL q 6 H PRN gabapentin 800 mg tab(s) (NEURONTIN) 800 mg ORAL TID cetirizine 10 mg tab(s) (ZyrTEC) 10 mg ORAL DAILY vancomycin 125 mg oral liquid (VANCOCIN) 125 mg ORAL QID nortriptyline 50 mg cap(s) (PAMELOR) 50 mg ORAL AT BEDTIME tiZANidine 4 mg tab(s) (ZANAFLEX) 4 mg ORAL TID PRN dextrose 40 % 15 g 15 g ORAL PRN glucagon 1 mg injection (GLUCAGEN) 1 mg INTRAMUSCULAR PRN dextrose 50% in water 25 mL syringe 12.5 g INTRAVENOUS PRN carvedilol 6.25 mg tab(s) (COREG) 6.25 mg ORAL BID w MEALS aspirin 81 mg chewable tab(s) 81 mg ORAL DAILY rosuvastatin 20 mg tab(s) (CRESTOR) 20 mg ORAL AT BEDTIME heparin 5,000 Units injection 5,000 Units SUBCUTANEOUS q 12 H insulin lispro injection (rapid acting) (HumaLOG) SUBCUTANEOUS w MEALS insulin lispro injection (rapid acting) (HumaLOG) SUBCUTANEOUS AT BEDTIME DATA Recent Labs 04/05/18 0531 04/04/18 0158 04/04/18 0008 WBC 11.15* 14.34* 17.22* HB 11.3* 10.8* 6.0* HCT 34.5* 33.6* 19.1* PLT 267 257 350 Recent Labs 04/05/18 0531 04/04/18 0008 NA 138 139 K 3.9 3.7 CO2 23 23 BUN 15 25* CREAT 0.79 0.95 GLUC 107* 130* MG -- 1.9 IMAGING Reviewed ASSESSMENT AND PLAN Rick George Jr. is a 57 year old male w PMH of DM2 c/b neuropathy, HTN, HLD, PAD/PVD, and CVA who presented for evaluation for PCI vs CABG after an NSTEMI on 04/01/18. Pt has multivessel dz and DM2 so will likely go for CABG, however patient has at least one active infection, Cdiff and possible PNA. Will start CAD Rxs, prep for CABG, and treat/work up infections. PLAN FOR TODAY - IVF as needed - ID consult to see if he needs full 10 days of PO vanc or if he can proceed safely to surgery prior to that - Cont glargine at half home dose, follow BG - wound care on board for R heel ulcer from nail - PT for sore hips Neuro #Peripheral Neuropathy 2/2 DM2 Mild numbness in feet b/l Plan Cont Gabapentin ? CV #NSTEMI in s/o 3VDz Tn peak 6, BNP ~600 Plan CABG w/u complete, accepted by [facility] for surgery. Date depending on necessary treatement duraiton for c diff ? #CAD LMT 25% LAD Prox 85%, Dist 75% LCX Prox 75%, Dist 85% RCA 95% Plan ASA Hold Brillinta for upcoming CABG No heparin gtt given last CP on Tuesday, no current CP Coreg lisinopril Rosuvastatin. No signs of myopathy ? #HTN Plan Coreg lisinopril if BP room ? Pulmonary #pulmonary edema - resolved ? GI #Cdiff Pos test at OSH, pt received Flagyl Some improvement in frequency of diarrhea on Flagyl Plan Vancomycin tx length 10 days ? Endocrine #DM2 A1c ~6, c/b neuropathy Plan SSI Insulin ? Diet Hrt Healthy 2gNa DVT ppx - heparin sq GI ppx - not indicated Case to be discussed with staff Arturo Mcmahan PGY-2, Internal Medicine [id number] [facility] STAFF PHYSICIAN NOTE OF PERSONAL INVOLVEMENT IN CARE IMPRESSION: Patient is a 57 year old male with: #Coronary artery disease status post NSTEMI and found to have severe multivessel disease (I have reviewed his cardiac catheterization and have uploaded to [employer]) #PAD #Diabetes mellitus #Prior CVA #Mixed hyperlipidemia #Current clostridium difficile infection ? PLAN: We appreciate the input of the CTS team. Plan for CABG with Dr. Zhu when C.Diff treatment is completed. I have reviewed the documentation obtained and documented by the Resident and have reviewed and updated the problem list as appropriate. I have personally performed a face to face assessment of the patient and have personally participated in the rubi components. I have discussed the case and management of the patient's care. STAFF PHYSICIAN: Van Mcguire MD DATE OF SERVICE: April 07, 2018 TIME OF SERVICE: 2:21 PM NUTRITION Observed: 04/07/2018 Status: COMPLETED Source: [place] 12:21 PM [facility] REPOSITORY [facility] ID: [id number] Author: Zulema Del Toro-T) Aury Service: Nutrition Therapy Author Type: Block Making Machine Operator Type: Nutrition Filed: 04/07/2018 12:34 PM Note Text: NUTRITION THERAPY FOLLOW-UP NOTE SERVICE DATE: 04/07/2018 SERVICE TIME: 10:00am Anthropometrics: Height: 177.8 cm (5' 10) Current Weight: Weight: 90.7 kg (199 lb 14.4 oz) Body mass index is 28.68 kg/m?. Loss of lean body mass/visual muscle wasting: no Admitting Diagnosis: CAD (coronary artery disease) [I25.10] Present Diet Order: Carbohydrate Controlled and Heart Healthy 2 gm Na Is the patient having any pain that is interfering with oral/enteral intake? No Allergies: ALLERGIES Allergen Reactions - Lipitor [Atorvastat* Contraindication-Medical Surgical Elevated LFTs and elevated CK level - Metformin Diarrhea Reason for Visit: Nutrient intake assessment: Current intake of meals: 0 -100% Follow-up: Intervention from 04/04/18 was not met (Goal >75% of estimated needs - 1888-2265kcal, 83-98g protein) Intakes: 04/06/18 - 1108kcal, 30g protein 04/05/18 - 804kcal, 22g protein (dinner not recorded) 04/04/18 - 446kcal, 8g protein Patient concerns/Issues: Patient states his appetite is okay and intakes have been improving. Has some occasional nausea but no vomiting. Diarrhea has subsided and patient states he is feeling back to normal. Patient requests a supplement, pended Boost GC twice daily. No other requests at this time. Weights have been stable. Will continue to monitor weight and intakes. Nursing Admission Assessment Malnutrition Score Tool: 0 Plan of Care: Recommendation No problems noted at this time. Will screen again within 7 days Supplement Boost glucose control twice daily (provides 500kcal, 28g protein) Discharge Plan: Home on diet ordered. MNT Billing Type: Routine Care/15 min 2 units SIGNATURE: Kayce HernandezT PATIENT NAME: Rick George Jr. DATE: April 07, 2018 TIME: 12:21 PM PAGER: [phone] THERAPY NT Observed: 04/07/2018 Status: COMPLETED Source: [place] 9:09 AM [facility] REPOSITORY O ID: [id number] Author: Josie Alonzo (Pt) Asp Service: Physical Therapy Author Type: Physical Therapist Type: Therapy (PT/OT/Speech/Resp) Filed: 04/07/2018 9:25 AM Note Text: Physical Therapy Evaluation SERVICE DATE: 04/07/2018 SERVICE TIME: 0810 to 0858 ROOM: [place] [address] Recommended Discharge Disposition: Outpatient Physical Therapy PT Recommendations to Nursing: (up ad jame) PT 6 Clicks Score: 24 ASSESSMENT : Patient presents with pain of his L hip exacerbated during his hospital admission. Requires skilled PT for pain management. Patient Disposition at Start of Session: Supine in Bed Patient Disposition at End of Session: Supine in Bed Tolerated Full Session Physical Therapy Problem List: Pain Patient /Caregiver Goals: Walk;Go Home Goals for Plan of Care: Able to perform HEP with: Independent Transfer supine to/from sit with: Independent Transfer sit to/from stand with: Independent Ambulate with: Independent Distance: >300 feet Ambulate up and down steps with: Independent Number of steps: 12 Rehab Potential: Excellent PLAN: Treatment Frequency (times per week): 2 Current admission Treatment Interventions: Education;Joint Mobility;Strengthening;Functional Mobility Training;Modalities;Pain Management Modalities: Ice Plan of Care developed with: Patient TREATMENT INTERVENTIONS: Therapy Diagnosis: General symptoms and signs-other Interventions Provided: Evaluation;Therapeutic Exercise (87423) $ Evaluation-Low (92244) Billed Units: 1 unit Therapeutic Exercise (00727) Treatment Minutes: 25 2 units Skilled Intervention(s): Instruction in therapeutic exercise for stretching and strengthening of his L hip to reduce pain. Patient instructed in 4 way hip series. Instructed patient in hamstring, hip flexor, and piriformis stretch. Patient given written HEP including frequency, intensity, and duration of all exercises. Given heat pack for L hip pain, educated on safety while using hip modality. Patient educated on alternating hip/ice to comfort for hip pain. Patient was educated on the role of PT, POC, and DC Planning. Vital signs and symptoms monitored throughout the session. Total Timed Code Treatment Minutes: 25 Total Treatment Time (minutes): 48 FUNCTIONAL G CODE: PT 6 Clicks Score: 24 (04/07/18809) Mobility: Walking and Moving Around Current Status (G8978): CH (04/07/18809) Mobility: Walking and Moving Around Goal Status (G8979): CH (04/07/18809) Based on clinical assessment and the score on the 6 Clicks Functional Assessment Tool, the G code and corresponding severity modifiers are documented above. 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 SIGNATURE: Josie Alonzo Asp, PT PATIENT NAME: Rick George Jr. DATE: April 07, 2018 TIME: 9:09 AM PAGER/CONTACT #: [phone] CBC Collected: 04/07/2018 Status: F Source: [place] 5:37 AM [facility] REPOS[facility] TYPE CODE TESTS RESULT OUT OF REFERENCE UNITS RANGE LAB WBC 3.70-11.00 k/uL WBC High 11.56 LAB RBC 4.20-6.00 m/uL Low RBC 3.46 LAB HGB 13.0-17.0 g/dL Low Hemoglobin 11.0 LAB HCT 39.0-51.0 % Low Hematocrit 34.0 LAB MCV 80.0-100.0 fL MCV 98.3 LAB MCH 26.0-34.0 pG MCH 31.8 LAB MCHC 30.5-36.0 g/dL MCHC 32.4 LAB RDWCV 11.5-15.0 % RDW-CV 13.1 LAB PLTCT 150-400 k/uL Platelet Count 327 LAB MPV 9.0-12.7 fL MPV 10.1 LAB ABSNUC <0.01 k/uL Absolute nRBC <0.01 Performed By: #### CBC, CMP, PT #### [facility] [address] [place], [place] [address] COMP METABOLIC PANEL Collected: 04/07/2018 Status: F Source: GERALDINE 5:37 AM [facility] REPOSITORY TYPE CODE TESTS RESULT OUT OF REFERENCE UNITS RANGE LAB TP 6.3-8.0 g/dL Low Protein, Total 6.1 LAB ALB 3.9-4.9 g/dL Low Albumin 3.0 LAB CA 8.5-10.2 mg/dL Calcium, Total 8.8 LAB TBIL 0.2-1.3 mg/dL Bilirubin, Total 0.3 LAB ALKP 36-108 U/L Alkaline Phosphatase 53 LAB AST 14-40 U/L AST 24 LAB GLU 74-99 mg/dL Glucose High 111 Result Comment: The [place] Diabetes [employer] (ADA) provides guidance for cutoff values for fasting glucose and random glucose. The ADA defines fasting as no caloric intake for at least 8 hours. Fas ting plasma glucose results between 100 to 125 mg/dL indicate increased risk for diabetes (prediabetes). Fasting plasma glucose results greater than or equal to 126 mg/dL meet the criteria for diagnosis of diabetes. In the absence of unequivocal hyperglycemia, results should be confirmed by repeat testing. In a patient with classic symptoms of hyperglycemia or hyperglycemic crisis, random plasma glucose results greater than or equal to 200 mg/dL meet the criteria for diagnosis of diabetes. Reference: Standards of Medical Care in Diabetes 2016, [place] [employer]. Diabetes Care. 2016.39(Suppl 1). LAB BUN 9-24 mg/dL BUN 10 LAB CRET 0.73-1.22 mg/dL Creatinine 0.89 LAB NA 136-144 mmol/L Sodium 141 LAB K 3.7-5.1 mmol/L Potassium 4.4 LAB CL 97-105 mmol/L Chloride 103 LAB CO2 22-30 mmol/L CO2 29 LAB AGAP 9-18 mmol/L Anion Gap 9 LAB ALT 10-54 U/L ALT 28 LAB GFRAA eGFR- Amer. >60 LAB GFRNAA . eGFR-All Other Races >60 Result Comment: eGFR (Estimated GFR) Units of measure: mL/min/1.73 meters squared eGFR is derived from the reexpressed MDRD Study equation using the following parameters: serum creatinine, age, gender and race. The creatinine assay has been calibrated to be traceable to IDMS. An eGFR <60 mL/min/1.73m2 for >3 months is consistent with chronic kidney disease. Refer to KDOQI guidelines for clinical interpretation. In patients with unstable renal function, e.g. those with acute kidney injury, the eGFR may not accurately reflect actual GFR. Performed By: #### CBC, CMP, PT #### [facility] [address] [place], [place] [address] PROTIME Collected: 04/07/2018 Status: F Source: GERALDINE 5:37 AM [facility] [place] REPOSITORY TYPE CODE TESTS RESULT OUT OF RANGE REFERENCE UNITS LAB PSEC 9.7-13.0 sec PT Sec 10.8 LAB INR 0.9-1.3 PT INR 1.0 Result Comment: Vitamin K Antagonist (VKA) Therapeutic Range: INR 2 to 3 (Target INR of 2.5) Note: For patients treated with VKA drugs, such as warfarin, the [place] [employer] 2012 Guideline recommends a therapeutic INR range of 2 to 3 (target INR of 2.5). This recommendation includes high-risk patients with antiphospholipid syndrome with previous arterial or venous thromboembolism, current-generation mechanical or bioprosthetic aortic heart valve replacement. Note: Patients with mechanical aortic valve replacement and additional risk factors for thromboembolic events (atrial fibrillation, previous thromboembolism, LV dysfunction, hypercoagulable conditions) or an older generation mechanical AVR (i.e., ball in-Cage) or any mechanical MVR should have a INR therapeutic range of 2.5 to 3.5 (target INR of 3). Guyatt GH, et al. Chest 2012, 141:7S-47S David RA, et al. [facility] 2017, 70: 252-289 Performed By: #### CBC, CMP, PT #### [facility] [employer] [address] [place], [place] [address] TMAO Collected: 04/07/2018 Status: F Source: GERALDINE 5:37 AM [facility] REPOSITORY TYPE CODE TESTS RESULT OUT OF REFERENCE UNITS RANGE LAB TMAOXD <6.2 uM TMAO 1.3 Result Comment: (NOTE) Based on a population (H=[id number]) defined as ambulatory stable patients without acute coronary syndrome who underwent elective diagnostic coronary angiography (1) and a reference range study of apparently healthy donors (N=180), we've defined the following cut-offs for TMAO to assess relative risk of a cardiovascular event: A cut-off of <6.2 uM defines an apparently healthy population at lower risk for a cardiovascular event, 6.2-9.9 uM defines a population at intermediate risk for a cardiovascular event (2-fold increased risk of MACE at 3 years), and >=10.0 uM defines a population with an increased risk for a cardiovascular event. (Reference: 1-Fam et al. N Engl J Med. 2013; 368:3152-3224). This test is performed by a Liquid Chromatography-Tandem Mass Spectrometry (LC/MS/MS) method. This test was developed and its performance characteristics determined by the [employer] It has not been cleared or approved by the U.S. FDA. The [facility] is regulated under Clinical Laboratory Improvement Amendments (CLIA) as qualified to perform high-complexity testing. This test is used for clinical purposes. It should not be regarded as investigational or for research. Test performed at: [facility], [place] [address] [place] [id number] Antonia Talley, PH.D., DABCC, FACB Performed By: #### CBC, CMP, PT #### [facility] [address] [place], [place] [address] Observed: 04/07/2018 Status: F Source: [facility] PNEUMO AG DETECT 4:39 AM [facility] REPOSITORY Sp. Request/Comment: - Specimen received in sterile container. Test Result - Negative for S.pneumoniae antigen. Presumptive negative for pneumococcal pneumonia, suggesting no current or recent pneumococcal infection. Infection due to S.pneumoniae cannot be ruled out since the antigen present in the sample may be below the detection limit of the test. Performed By: #### SPNAG #### [facility] [address] [place] [id number] CONSULT PROG Observed: 04/06/2018 Status: COMPLETED Source: GERALD[place] 3:28 PM [facility] REPOSITORY HNO ID: [id number] Author: Mercedes Dougherty) Raffaele Service: Cardiac Surgery Author Type: Nurse Practitioner Type: Consult Progress Note Filed: 04/06/2018 3:30 PM Note Text: [facility] staff Dr. Zhu Intended surgery: CABG Date of surgery: 10 to 14 days after C-diff treatment begun and or cleared by ID. Vancocin started 04/04. Preop testing is complete. CBC, Coags, BMP, Mg, Phos Recent Labs 04/06/18 0350 04/05/18 1106 04/05/18 0531 04/04/18 0158 04/04/18 0008 WBC 11.83* -- 11.15* 14.34* 17.22* HB 10.8* -- 11.3* 10.8* 6.0* HCT 33.8* -- 34.5* 33.6* 19.1* PLT 305 -- 267 257 350 INR 1.1 -- 1.1 -- 1.0 APTT -- 25.6 -- -- -- NA 140 -- 138 -- 139 K 4.3 -- 3.9 -- 3.7 CHLOR 103 -- 104 -- 106* CO2 25 -- 23 -- 23 BUN 12 -- 15 -- 25* CREAT 0.81 -- 0.79 -- 0.95 GLUC 111* -- 107* -- 130* CA 8.5 -- 8.5 -- 8.0* MG -- -- -- -- 1.9 P -- -- -- -- 3.2 Mercedes Montalvo RN LANDSCAPE CONTRACTOR.TRACK LABORER PROGRESS Observed: 04/06/2018 Status: COMPLETED Source: GER[place] 1:14 PM [facility] REPOSITORY O ID: [id number] Author: Van Mcguire Service: Cardiovascular Medicine Author Type: Physician Type: Progress Notes Filed: 04/06/2018 1:32 PM Note Text: [facility] PROGRESS NOTE (Template ID [id number]) Rick George Jr. [id number] PRIMARY SERVICE: Hvi Clinical Cardiology A HOSPITAL DAY: # 2 INTERVAL HISTORY NAEO Pt feels like cough and diarrhea have improved Stools are almost normal, only 1 BM overnight PHYSICAL EXAM BP 103/63 Pulse 79 Temp 36.8 ?C (98.2 ?F) (Oral) Resp 18 Ht 177.8 cm (5' 10) Wt 89.8 kg (198 lb) SpO2 96% BMI 28.41 kg/m? Intake/Output Summary (Last 24 hours) at 04/06/18 1314 Last data filed at 04/06/18 0900 Gross per 24 hour Intake 360 ml Output 2600 ml Net -2240 ml General Appearance: Well developed, Well nourished , Obese and No acute distress HEENT: PERRLA, EOM's intact, Sclera anicteric, Fair dentition and JVD - no Lungs: Crackles b/l, cough present Heart: Regular rate AND rhythm, nml S1, S2, no m/r/g Abdomen: Soft, Non-tender and Bowel sounds present Skin: Warm and Dry Musculoskeletal: No deformities and No joint deformities Neurologic/Psychiatric: Oriented to time, place AND person , No gross focal neurologic deficits but some numbness in feet b/l MEDICATIONS Current hospital medications: lactated ringers 1,000 mL iv bolus 1,000 mL INTRAVENOUS ONCE insulin glargine 10 Units pen (long acting) (LANTUS SOLOSTAR, BASAGLAR KWIKPEN) 10 Units SUBCUTANEOUS DAILY (8 AM) 0.9% NaCl 3-5 mL 3-5 mL INTRAVENOUS q 12 H benzonatate 100 mg cap(s) (TESSALON PERLE) 100 mg ORAL TID traMADol 50 mg tab(s) (ULTRAM) 50 mg ORAL q 6 H PRN gabapentin 800 mg tab(s) (NEURONTIN) 800 mg ORAL TID cetirizine 10 mg tab(s) (ZyrTEC) 10 mg ORAL DAILY vancomycin 125 mg oral liquid (VANCOCIN) 125 mg ORAL QID nortriptyline 50 mg cap(s) (PAMELOR) 50 mg ORAL AT BEDTIME tiZANidine 4 mg tab(s) (ZANAFLEX) 4 mg ORAL TID PRN dextrose 40 % 15 g 15 g ORAL PRN glucagon 1 mg injection (GLUCAGEN) 1 mg INTRAMUSCULAR PRN dextrose 50% in water 25 mL syringe 12.5 g INTRAVENOUS PRN carvedilol 6.25 mg tab(s) (COREG) 6.25 mg ORAL BID w MEALS aspirin 81 mg chewable tab(s) 81 mg ORAL DAILY rosuvastatin 20 mg tab(s) (CRESTOR) 20 mg ORAL AT BEDTIME heparin 5,000 Units injection 5,000 Units SUBCUTANEOUS q 12 H insulin lispro injection (rapid acting) (HumaLOG) SUBCUTANEOUS w MEALS insulin lispro injection (rapid acting) (HumaLOG) SUBCUTANEOUS AT BEDTIME DATA Recent Labs 04/05/18 0531 04/04/18 0158 04/04/18 0008 WBC 11.15* 14.34* 17.22* HB 11.3* 10.8* 6.0* HCT 34.5* 33.6* 19.1* PLT 267 257 350 Recent Labs 04/05/18 0531 04/04/18 0008 NA 138 139 K 3.9 3.7 CO2 23 23 BUN 15 25* CREAT 0.79 0.95 GLUC 107* 130* MG -- 1.9 IMAGING Reviewed ASSESSMENT AND PLAN Rick Georeg . is a 57 year old male w PMH of DM2 c/b neuropathy, HTN, HLD, PAD/PVD, and CVA who presented for evaluation for PCI vs CABG after an NSTEMI on 04/01/18. Pt has multivessel dz and DM2 so will likely go for CABG, however patient has at least one active infection, Cdiff and possible PNA. Will start CAD Rxs, prep for CABG, and treat/work up infections. PLAN FOR TODAY -UOP -3L net yesterday, will give IVFs today to match I/Os -Fup with CTS re CABG, surgeon Dr Zhu - Cont glargine at half home dose, follow BG - wound care on board for R heel ulcer from nail - PT for sore hips - TMAO level for role of pt diet in his heart dz, given nml lipid profile Neuro #Peripheral Neuropathy 2/2 DM2 Mild numbness in feet b/l Plan Cont Gabapentin ? CV #NSTEMI in s/o 3VDz Tn peak 6, BNP ~600 Plan Plan for CABG, workup Review CD with Staff for possible repeat [facility] Echo Carotid US for CABG prep See plan for CAD ? #CAD LMT 25% LAD Prox 85%, Dist 75% LCX Prox 75%, Dist 85% RCA 95% Plan ASA Hold Brillinta for possible upcoming CABG No heparin gtt given last CP on Tuesday, no current CP Start Coreg If room on BP, add lisinopril tomorrow Check lipid panel, TSH, A1c Lipoprotein A given low total Chol and 3VDz Add low dose statin if possible given hx of CK elevation ? #HTN Plan Cont Coreg Add lisinopril if BP room ? Pulmonary #Pneumonia? DDx is PNA vs. Acute CHF 2/2 NSTEMI Plan CXR 2 view to look for consolidation, this does not r/o atypicals Blood cx Histo and Strep Ag Tessalon pearls Will avoid treatment for now given likelihood of CHF and lack of consolidation on CXR frontal Will reassess if no improvement with diuresis and/or continued/worsening s/s ? GI #Cdiff Pos test at OSH, pt received Flagyl Some improvement in frequency of diarrhea on Flagyl Now with LUQ pain/ttp Plan Vancomycin day #1 given, tx length 10 days KUB for LUQ quadrant pain in s/o Cdiff ? Endocrine #DM2 A1c ~6, c/b neuropathy Plan SSI Insulin ? Diet Hrt Healthy 2gNa DVT ppx - heparin sq GI ppx - not indicated Case to be discussed with staff Blanco Paul MD Pager [phone] (please see below for after hours communication) For communication after 5 pm on weekdays and after 12 pm on weekends, please page the following: - Clinical Cardiology patients on all floors: page [phone] - Other Cardiology patients on J5 and J6: page [phone] - Other Cardiology patients on J7 and J8: page [phone] [facility] STAFF PHYSICIAN NOTE OF PERSONAL INVOLVEMENT IN CARE IMPRESSION: Patient is a 57 year old male with: #Coronary artery disease status post NSTEMI and found to have severe multivessel disease (I have reviewed his cardiac catheterization and have uploaded to [employer]) #PAD #Diabetes mellitus #Prior CVA #Mixed hyperlipidemia #Current clostridium difficile infection ? PLAN: Consideration for CABG. We are awaiting CTS team input. I have reviewed the documentation obtained and documented by the Resident and have reviewed and updated the problem list as appropriate. I have personally performed a face to face assessment of the patient and have personally participated in the rubi components. I have discussed the case and management of the patient's care. STAFF PHYSICIAN: Van Mcguire MD DATE OF SERVICE: April 06, 2018 TIME OF SERVICE: 1:31 PM 12 LEAD ELECTROCARDIOGRAM Observed: 04/06/2018 Status: F Source: DAVIE 10:33 AM [facility] REPOSITORY [facility] Cardiovascular Services [address] [place] [address] 12 Lead EKG 04/01/18 1826 MR#: [id number] Acct: [id number] Name: RICK GEORGE Rep #: [id number] : 1960 57 From: Senthil Hoang MD Attending Dr: Shania Hernandez Status: DIS IN Ordering Dr: Mini Marcelino MD Date: 04/01/18 Location: [facility] Sex: M C Admitted: 04/01/18 Test Reason : ADMIT EKG Blood Pressure : / mmHG Vent. Rate : 102 BPM Atrial Rate : 102 BPM P-R Int : 160 ms QRS Dur : 092 ms QT Int : 344 ms P-R-T Axes : 043 -06 120 degrees QTc Int : 448 ms Sinus tachycardia Septal infarct , age undetermined Abnormal ECG When compared with ECG of 04-OCT-2017 15:57, Septal infarct is now Present ST now depressed in Anterolateral leads Nonspecific T wave abnormality, worse in Lateral leads Confirmed by SENTHIL HOANG MD ([id number]), supervising film or videotape editor TIERA CHATMAN ([id number]) on 04/06/2018 10:33:00 AM Referred By: Shiv Emanuel Confirmed By:SENTHIL HOANG MD 04/06/18 1033 Date Senthil Hoang MD CC: Mini Marcelino MD; Shania Fischer DO Signed 12 LEAD ELECTROCARDIOGRAM Observed: 04/06/2018 Status: F Source: DAVIE 10:19 AM [facility] REPOSITORY [facility] Cardiovascular [address] [address] 12 Lead EKG 04/02/18 0539 MR#: [id number] Acct: [id number] Name: RICK GEORGE Rep #: [id number] : 1960 57 From: Senthil Hoang MD Attending Dr: Shania Hernandez Status: DIS IN Ordering Dr: Reid Ring MD Date: 04/02/18 Location: [facility] Sex: M C Admitted: 04/01/18 Test Reason : AM EKG Blood Pressure : / mmHG Vent. Rate : 097 BPM Atrial Rate : 097 BPM P-R Int : 162 ms QRS Dur : 092 ms QT Int : 348 ms P-R-T Axes : 041 -10 121 degrees QTc Int : 441 ms Normal sinus rhythm Septal infarct , age undetermined Abnormal ECG When compared with ECG of 01-APR-2018 18:26, MANUAL COMPARISON REQUIRED, DATA IS UNCONFIRMED Confirmed by SENTHIL HOANG MD ([id number]), supervising film or videotape editor TIERA CHATMAN ([id number]) on 04/06/2018 10:19:15 AM Referred By: Shiv Emanuel Confirmed By:SENTHIL HAONG MD 04/06/18 1019 Date Senthil Hoang MD CC: Shania Hernandez; Avery Fischer DO; Reid Ring MD Signed CASE MANAGEM Observed: 04/06/2018 Status: COMPLETED Source: GERALDINE 10:17 AM [facility] REPOSITORY O ID: [id number] Author: Fabiola LernerRn) LIN Anders Service: Care Management Author Type: Registered Nurse Type: Care Mgt Progress Note Filed: 04/06/2018 10:20 AM Note Text: CARE MANAGEMENT PROGRESS NOTE SERVICE DATE: 04/06/2018 SERVICE TIME: 10:17 AM LOS: 2 days Needs Prior to Discharge: To Be Determined EMR reviewed. Patient remains on RA. Wound care following patient for R heel wound from nail. CTS evaluation in process, patient being considered for CABG. Will follow patients progress and plan for discharge accordingly. No discharge timeframe currently identified. SIGNATURE: Fabiola Anders RN PATIENT NAME: Rick George Jr. DATE: April 06, 2018 TIME: 10:17 AM PAGER/CONTACT #: [phone] WEEKEND PAGER: [phone] [id number] LEAD ELECTROCARDIOGRAM Observed: 04/06/2018 Status: F Source: DAVIE 10:15 AM [facility] REPOSITORY [facility] Cardiovascular Services [address] [place] [address] 12 Lead EKG 04/03/18 0540 MR#: [id number] Acct: [id number] Name: RICK GEORGE Rep #: [id number] : 1960 57 From: Senthil Hoang MD Attending Dr: Shania Hernandez Status: DIS IN Ordering Dr: Reid Ring MD Date: 04/03/18 Location: [facility] Sex: M C Admitted: 04/01/18 Test Reason : AM EKG Blood Pressure : / mmHG Vent. Rate : 097 BPM Atrial Rate : 097 BPM P-R Int : 166 ms QRS Dur : 094 ms QT Int : 356 ms P-R-T Axes : 051 -07 099 degrees QTc Int : 452 ms Normal sinus rhythm Septal infarct , age undetermined Abnormal ECG When compared with ECG of 02-APR-2018 05:39, MANUAL COMPARISON REQUIRED, DATA IS UNCONFIRMED Confirmed by SENTHIL HOANG MD ([id number]), supervising film or videotape editor TIERA CHATMAN ([id number]) on 04/06/2018 10:15:35 AM Referred By: Shiv Emanuel Confirmed By:SENTHIL HOANG MD 04/06/18 1015 Date Senthil Hoang MD CC: Shania Hernandez; Avery Fischer DO; Reid Ring MD Signed PROTIME Collected: 04/06/2018 Status: F Source: GERALDINE 3:50 AM [facility] REPOSITORY TYPE CODE TESTS RESULT OUT OF RANGE REFERENCE UNITS LAB PSEC 9.7-13.0 sec PT Sec 11.0 LAB INR 0.9-1.3 PT INR 1.1 Result Comment: Vitamin K Antagonist (VKA) Therapeutic Range: INR 2 to 3 (Target INR of 2.5) Note: For patients treated with VKA drugs, such as warfarin, the [place] [employer] 2012 Guideline recommends a therapeutic INR range of 2 to 3 (target INR of 2.5). This recommendation includes high-risk patients with antiphospholipid syndrome with previous arterial or venous thromboembolism, current-generation mechanical or bioprosthetic aortic heart valve replacement. Note: Patients with mechanical aortic valve replacement and additional risk factors for thromboembolic events (atrial fibrillation, previous thromboembolism, LV dysfunction, hypercoagulable conditions) or an older generation mechanical AVR (i.e., ball in-Cage) or any mechanical MVR should have a INR therapeutic range of 2.5 to 3.5 (target INR of 3). Michael GH, et al. Chest 2012, 141:7S-47S David RA, et al. [facility] 2017, 70: 252-289 Performed By: #### PT, CBC, CMP #### [facility] [employer] [address] [place], [place] [address] CBC Collected: 04/06/2018 Status: F Source: GERALDINE 3:50 AM [facility] REPOSITORY TYPE CODE TESTS RESULT OUT OF REFERENCE UNITS RANGE LAB WBC 3.70-11.00 k/uL WBC High 11.83 LAB RBC 4.20-6.00 m/uL Low RBC 3.41 LAB HGB 13.0-17.0 g/dL Low Hemoglobin 10.8 LAB HCT 39.0-51.0 % Low Hematocrit 33.8 LAB MCV 80.0-100.0 fL MCV 99.1 LAB MCH 26.0-34.0 pG MCH 31.7 LAB MCHC 30.5-36.0 g/dL MCHC 32.0 LAB RDWCV 11.5-15.0 % RDW-CV 13.2 LAB PLTCT 150-400 k/uL Platelet Count 305 LAB MPV 9.0-12.7 fL MPV 10.0 LAB ABSNUC <0.01 k/uL Absolute nRBC <0.01 Performed By: #### PT, CBC, CMP #### [facility] [employer] [address] [place], [place] [address] COMP METABOLIC PANEL Collected: 04/06/2018 Status: F Source: [place] 3:50 AM [facility] REPOSITORY TYPE CODE TESTS RESULT OUT OF REFERENCE UNITS RANGE LAB TP 6.3-8.0 g/dL Low Protein, Total 6.0 LAB ALB 3.9-4.9 g/dL Low Albumin 3.1 LAB CA 8.5-10.2 mg/dL Calcium, Total 8.5 LAB TBIL 0.2-1.3 mg/dL Bilirubin, Total 0.2 LAB ALKP 36-108 U/L Alkaline Phosphatase 53 LAB AST 14-40 U/L AST 26 LAB GLU 74-99 mg/dL Glucose High 111 Result Comment: The [place] [employer] (ADA) provides guidance for cutoff values for fasting glucose and random glucose. The ADA defines fasting as no caloric intake for at least 8 hours. Fas ting plasma glucose results between 100 to 125 mg/dL indicate increased risk for diabetes (prediabetes). Fasting plasma glucose results greater than or equal to 126 mg/dL meet the criteria for diagnosis of diabetes. In the absence of unequivocal hyperglycemia, results should be confirmed by repeat testing. In a patient with classic symptoms of hyperglycemia or hyperglycemic crisis, random plasma glucose results greater than or equal to 200 mg/dL meet the criteria for diagnosis of diabetes. Reference: Standards of Medical Care in Diabetes 2016, [place] [employer]. Diabetes Care. 2016.39(Suppl 1). LAB BUN 9-24 mg/dL BUN 12 LAB CRET 0.73-1.22 mg/dL Creatinine 0.81 LAB NA 136-144 mmol/L Sodium 140 LAB K 3.7-5.1 mmol/L Potassium 4.3 LAB CL 97-105 mmol/L Chloride 103 LAB CO2 22-30 mmol/L CO2 25 LAB AGAP 9-18 mmol/L Anion Gap 12 LAB ALT 10-54 U/L ALT 28 LAB GFRAA eGFR- Amer. >60 LAB GFRNAA . eGFR-All Other Races >60 Result Comment: eGFR (Estimated GFR) Units of measure: mL/min/1.73 meters squared eGFR is derived from the reexpressed MDRD Study equation using the following parameters: serum creatinine, age, gender and race. The creatinine assay has been calibrated to be traceable to IDMS. An eGFR <60 mL/min/1.73m2 for >3 months is consistent with chronic kidney disease. Refer to KDOQI guidelines for clinical interpretation. In patients with unstable renal function, e.g. those with acute kidney injury, the eGFR may not accurately reflect actual GFR. Performed By: #### PT, CBC, CMP #### [facility] [address] [place], [place] [address] 12 LEAD ELECTROCARDIOGRAM Observed: 04/05/2018 Status: F Source: [place] 3:41 PM [facility] REPOSITORY [facility] Cardiovascular Services [address] [place] [address] 12 Lead EKG 04/01/18 1430 MR#: [id number] Acct: [id number] Name: RICK GEORGE Rep #: [id number] : 1960 57 From: Senthil Hoang MD Attending Dr: Shania Hernandez Status: DIS IN Ordering Dr: Shiv Emanuel MD Date: 04/01/18 Location: [facility] Sex: M C Admitted: 04/01/18 Test Reason : BACK PAIN Blood Pressure : / mmHG Vent. Rate : 099 BPM Atrial Rate : 099 BPM P-R Int : 166 ms QRS Dur : 088 ms QT Int : 334 ms P-R-T Axes : 053 -08 -12 degrees QTc Int : 428 ms Normal sinus rhythm Septal infarct , age undetermined ST AND T wave abnormality, consider lateral ischemia Abnormal ECG Confirmed by SENTHIL HOANG MD ([id number]), supervising film or videotape editor TIERA CHATMAN ([id number]) on 04/05/2018 3:41:30 PM Referred By: Shiv Emanuel Confirmed By:SENTHIL HOANG MD 04/05/18 1541 Date Senthil Hoang MD CC: Shania Hernandez; Shiv Emanuel MD; Avery Fischer DO Signed PROGRESS Observed: 04/05/2018 Status: COMPLETED Source: GERALDINE 1:28 PM [facility] REPOSITORY HNO ID: [id number] Author: Van Mcguire Service: Cardiovascular Medicine Author Type: Physician Type: Progress Notes Filed: 04/05/2018 1:49 PM Note Text: [facility]ICINE PROGRESS NOTE (Template ID [id number]) Rick George Jr. [id number] PRIMARY SERVICE: Hvi Clinical Cardiology A HOSPITAL DAY: # 1 INTERVAL HISTORY NAEO Pt feels like cough and diarrhea have improved PHYSICAL EXAM BP 100/65 Pulse 80 Temp 36.8 ?C (98.2 ?F) (Oral) Resp 18 Ht 177.8 cm (5' 10) Wt 90.6 kg (199 lb 11.2 oz) SpO2 97% BMI 28.65 kg/m? Intake/Output Summary (Last 24 hours) at 04/05/18 1328 Last data filed at 04/05/18 1200 Gross per 24 hour Intake 1360 ml Output 2710 ml Net -1350 ml General Appearance: Well developed, Well nourished , Obese and No acute distress HEENT: PERRLA, EOM's intact, Sclera anicteric, Fair dentition and JVD - no Lungs: Crackles b/l, cough present Heart: Regular rate AND rhythm, nml S1, S2, no m/r/g Abdomen: Soft, Non-tender and Bowel sounds present Skin: Warm and Dry Musculoskeletal: No deformities and No joint deformities Neurologic/Psychiatric: Oriented to time, place AND person , No gross focal neurologic deficits but some numbness in feet b/l MEDICATIONS Current hospital medications: insulin glargine 10 Units pen (long acting) (LANTUS SOLOSTAR, BASAGLAR KWIKPEN) 10 Units SUBCUTANEOUS DAILY (8 AM) 0.9% NaCl 3-5 mL 3-5 mL INTRAVENOUS q 12 H benzonatate 100 mg cap(s) (TESSALON PERLE) 100 mg ORAL TID traMADol 50 mg tab(s) (ULTRAM) 50 mg ORAL q 6 H PRN gabapentin 800 mg tab(s) (NEURONTIN) 800 mg ORAL TID cetirizine 10 mg tab(s) (ZyrTEC) 10 mg ORAL DAILY vancomycin 125 mg oral liquid (VANCOCIN) 125 mg ORAL QID nortriptyline 50 mg cap(s) (PAMELOR) 50 mg ORAL AT BEDTIME tiZANidine 4 mg tab(s) (ZANAFLEX) 4 mg ORAL TID PRN dextrose 40 % 15 g 15 g ORAL PRN glucagon 1 mg injection (GLUCAGEN) 1 mg INTRAMUSCULAR PRN dextrose 50% in water 25 mL syringe 12.5 g INTRAVENOUS PRN carvedilol 6.25 mg tab(s) (COREG) 6.25 mg ORAL BID w MEALS aspirin 81 mg chewable tab(s) 81 mg ORAL DAILY rosuvastatin 20 mg tab(s) (CRESTOR) 20 mg ORAL AT BEDTIME heparin 5,000 Units injection 5,000 Units SUBCUTANEOUS q 12 H insulin lispro injection (rapid acting) (HumaLOG) SUBCUTANEOUS w MEALS insulin lispro injection (rapid acting) (HumaLOG) SUBCUTANEOUS AT BEDTIME DATA Recent Labs 04/05/18 0531 04/04/18 0158 04/04/18 0008 WBC 11.15* 14.34* 17.22* HB 11.3* 10.8* 6.0* HCT 34.5* 33.6* 19.1* PLT 267 257 350 Recent Labs 04/05/18 0531 04/04/18 0008 NA 138 139 K 3.9 3.7 CO2 23 23 BUN 15 25* CREAT 0.79 0.95 GLUC 107* 130* MG -- 1.9 IMAGING Reviewed ASSESSMENT AND PLAN Rick George Jr. is a 57 year old male w PMH of DM2 c/b neuropathy, HTN, HLD, PAD/PVD, and CVA who presented for evaluation for PCI vs CABG after an NSTEMI on 04/01/18. Pt has multivessel dz and DM2 so will likely go for CABG, however patient has at least one active infection, Cdiff and possible PNA. Will start CAD Rxs, prep for CABG, and treat/work up infections. PLAN FOR TODAY -No UOP overnight, will give 500cc NS bolus, bladder scan, follow I/Os closely -Fup with CTS re CABG, surgeon Dr Zhu - Cont CTS w/u with mammary artery US - Start glargine at half home dose - wound care on board for R heel ulcer from nail Neuro #Peripheral Neuropathy 2/2 DM2 Mild numbness in feet b/l Plan Cont Gabapentin ? CV #NSTEMI in s/o 3VDz Tn peak 6, BNP ~600 Plan Plan for CABG, workup Review CD with Staff for possible repeat [facility] Echo Carotid US for CABG prep See plan for CAD ? #CAD LMT 25% LAD Prox 85%, Dist 75% LCX Prox 75%, Dist 85% RCA 95% Plan ASA Hold Brillinta for possible upcoming CABG No heparin gtt given last CP on Tuesday, no current CP Start Coreg If room on BP, add lisinopril tomorrow Check lipid panel, TSH, A1c Lipoprotein A given low total Chol and 3VDz Add low dose statin if possible given hx of CK elevation ? #HTN Plan Cont Coreg Add lisinopril if BP room ? Pulmonary #Pneumonia? DDx is PNA vs. Acute CHF 2/2 NSTEMI Plan CXR 2 view to look for consolidation, this does not r/o atypicals Blood cx Histo and Strep Ag Tessalon pearls Will avoid treatment for now given likelihood of CHF and lack of consolidation on CXR frontal Will reassess if no improvement with diuresis and/or continued/worsening s/s ? GI #Cdiff Pos test at OSH, pt received Flagyl Some improvement in frequency of diarrhea on Flagyl Now with LUQ pain/ttp Plan Vancomycin day #1 given, tx length 10 days KUB for LUQ quadrant pain in s/o Cdiff ? Endocrine #DM2 A1c ~6, c/b neuropathy Plan SSI Insulin ? Diet Hrt Healthy 2gNa DVT ppx - heparin sq GI ppx - not indicated Case to be discussed with staff Blanco Paul MD Pager [phone] (please see below for after hours communication) 04/05/2018 1:28 PM For communication after 5 pm on weekdays and after 12 pm on weekends, please page the following: - Clinical Cardiology patients on all floors: page [phone] - Other Cardiology patients on J5 and J6: page [phone] - Other Cardiology patients on J7 and J8: page [phone] [facility] STAFF PHYSICIAN NOTE OF PERSONAL INVOLVEMENT IN CARE IMPRESSION: Patient is a 57 year old male with: #Coronary artery disease status post NSTEMI and found to have severe multivessel disease (I have reviewed his cardiac catheterization and have uploaded to [employer]) #PAD #Diabetes mellitus #Prior CVA #Mixed hyperlipidemia #Current clostridium difficile infection ? PLAN: Consideration for CABG. We are awaiting CTS team input. I have reviewed the documentation obtained and documented by the Resident and have reviewed and updated the problem list as appropriate. I have personally performed a face to face assessment of the patient and have personally participated in the rubi components. I have discussed the case and management of the patient's care. STAFF PHYSICIAN: Van Mcguire MD DATE OF SERVICE: April 05, 2018 TIME OF SERVICE: 1:48 PM APTT Collected: 04/05/2018 Status: F Source: [place] 11:06 AM [facility] REPOSITORY TYPE CODE TESTS RESULT OUT OF RANGE REFERENCE UNITS LAB APTT 23.0-32.4 sec APTT 25.6 Result Comment: Unfractionated Heparin Therapeutic Ranges: Standard Heparin Nomogram: 53 to 78 seconds (anti-Xa level of 0.3 to 0.7 U/ml) Low Dose/ACS Nomogram: 49 to 67 seconds (anti-Xa level of 0.2 to 0.5 U/ml) Stroke Treatment Nomogram: 49 to 67 seconds (anti-Xa level of 0.2 to 0.5 U/ml) Note: The APTT therapeutic range has been determined for the current lot of laboratory APTT reagent in use throughout the [facility]. Performed By: #### PTT #### [facility] [employer] [address], [place] [address] PROTIME Collected: 04/05/2018 Status: F Source: [place] 5:31 AM [facility] REPOSITORY TYPE CODE TESTS RESULT OUT OF RANGE REFERENCE UNITS LAB PSEC 9.7-13.0 sec PT Sec 11.1 LAB INR 0.9-1.3 PT INR 1.1 Result Comment: Vitamin K Antagonist (VKA) Therapeutic Range: INR 2 to 3 (Target INR of 2.5) Note: For patients treated with VKA drugs, such as warfarin, the [place] [employer] 2012 Guideline recommends a therapeutic INR range of 2 to 3 (target INR of 2.5). This recommendation includes high-risk patients with antiphospholipid syndrome with previous arterial or venous thromboembolism, current-generation mechanical or bioprosthetic aortic heart valve replacement. Note: Patients with mechanical aortic valve replacement and additional risk factors for thromboembolic events (atrial fibrillation, previous thromboembolism, LV dysfunction, hypercoagulable conditions) or an older generation mechanical AVR (i.e., ball in-Cage) or any mechanical MVR should have a INR therapeutic range of 2.5 to 3.5 (target INR of 3). Michael GH, et al. Chest 2012, 141:7S-47S David DAVEY et al. [facility] 2017, 70: 252-289 Performed By: #### PT, CBC, CMP #### [facility] [employer] [address] [place], [place] [address] CBC Collected: 04/05/2018 Status: F Source: [place] 5:31 AM [facility] REPOSITORY TYPE CODE TESTS RESULT OUT OF REFERENCE UNITS RANGE LAB WBC 3.70-11.00 k/uL WBC High 11.15 LAB RBC 4.20-6.00 m/uL Low RBC 3.57 LAB HGB 13.0-17.0 g/dL Low Hemoglobin 11.3 LAB HCT 39.0-51.0 % Low Hematocrit 34.5 LAB MCV 80.0-100.0 fL MCV 96.6 LAB MCH 26.0-34.0 pG MCH 31.7 LAB MCHC 30.5-36.0 g/dL MCHC 32.8 LAB RDWCV 11.5-15.0 % RDW-CV 13.0 LAB PLTCT 150-400 k/uL Platelet Count 267 LAB MPV 9.0-12.7 fL MPV 9.9 LAB ABSNUC <0.01 k/uL Absolute nRBC <0.01 Performed By: #### PT, CBC, CMP #### [facility] [address], [place] [address] COMP METABOLIC PANEL Collected: 04/05/2018 Status: F Source: [place] 5:31 AM [facility] REPOSITORY TYPE CODE TESTS RESULT OUT OF REFERENCE UNITS RANGE LAB TP 6.3-8.0 g/dL Low Protein, Total 6.0 LAB ALB 3.9-4.9 g/dL Low Albumin 2.6 LAB CA 8.5-10.2 mg/dL Calcium, Total 8.5 LAB TBIL 0.2-1.3 mg/dL Bilirubin, Total 0.2 LAB ALKP 36-108 U/L Alkaline Phosphatase 51 LAB AST 14-40 U/L AST 27 LAB GLU 74-99 mg/dL Glucose High 107 Result Comment: The [place] [employer] Association (ADA) provides guidance for cutoff values for fasting glucose and random glucose. The ADA defines fasting as no caloric intake for at least 8 hours. Fas ting plasma glucose results between 100 to 125 mg/dL indicate increased risk for diabetes (prediabetes). Fasting plasma glucose results greater than or equal to 126 mg/dL meet the criteria for diagnosis of diabetes. In the absence of unequivocal hyperglycemia, results should be confirmed by repeat testing. In a patient with classic symptoms of hyperglycemia or hyperglycemic crisis, random plasma glucose results greater than or equal to 200 mg/dL meet the criteria for diagnosis of diabetes. Reference: Standards of Medical Care in Diabetes 2016, [place] [employer] Association. Diabetes Care. 2016.39(Suppl 1). LAB BUN 9-24 mg/dL BUN 15 LAB CRET 0.73-1.22 mg/dL Creatinine 0.79 LAB NA 136-144 mmol/L Sodium 138 LAB K 3.7-5.1 mmol/L Potassium 3.9 LAB CL 97-105 mmol/L Chloride 104 LAB CO2 22-30 mmol/L CO2 23 LAB AGAP 9-18 mmol/L Anion Gap 11 LAB ALT 10-54 U/L ALT 25 LAB GFRAA eGFR- Amer. >60 LAB GFRNAA . eGFR-All Other Races >60 Result Comment: eGFR (Estimated GFR) Units of measure: mL/min/1.73 meters squared eGFR is derived from the reexpressed MDRD Study equation using the following parameters: serum creatinine, age, gender and race. The creatinine assay has been calibrated to be traceable to IDMS. An eGFR <60 mL/min/1.73m2 for >3 months is consistent with chronic kidney disease. Refer to KDOQI guidelines for clinical interpretation. In patients with unstable renal function, e.g. those with acute kidney injury, the eGFR may not accurately reflect actual GFR. Performed By: #### PT, CBC, CMP #### [facility] [address] [place], [place] [address] CT CHEST CARDIAC WO Observed: 04/04/2018 Status: F Source: [facility] 7:35 PM [facility] REPOSITORY * * *Final Report* * * DATE OF EXAM: Apr 04 2018 7:35PM [facility] 2056 - CT CHEST CARDIAC WO IVCON / PROCEDURE REASON: Prior revascularization (either PTCA or CABG) * * * * Physician Interpretation * * * * CT Aorta chest - images were acquired and reviewed earlier, and subsequently brought to my attention for final dictation Direct Image Comparison: No HISTORY: 57 years Male patient recently admitted s/p recent acute h/o NSTEMI; CAD The patient is evaluated for further treatment options, including cardiothoracic surgery. There is need to define thoracic and aortic anatomy. TECHNIQUE: In-patient scan SCANNER: Multi-detector CT technology (Soo Brilliance 64-slice scanner) PROTOCOL: Spiral imaging of the chest with retrospective gating with 1 and 3 mm slice reconstruction in diastolic phase without administration of contrast material. Scan Range: thoracic inlet to the diaphragm Tube Voltage: [address] Dose-Length Product (DLP): 657 mGy*cm CT Dose Reduction Employed: mAs-kVp adjusted based on patient size-age Radiation Shielding Employed: Yes CONTRAST: None Scan acquisition: uncomplicated For optimization of anatomic evaluation, off-line postprocessing was performed on a dedicated workstation by the interpreting physician. Additional lung CAD STUDY LIMITATIONS: None RESULT: CHEST: Chest wall anatomy: unremarkable Lungs: breathing artifact - small bilateral pleural effusions with adjacent atelectasis, Non-calcified 2 mm nodule right middle lung lobe (Image # [id number]) Incidental Finding: No follow-up imaging for this incidentally detected lung nodule is recommended. Mediastinum: mediastinal lymph nodes, which are not pathologic by size criteria Pericardium: unremarkable Central pulmonary artery: normal dimensions, assessment is limited due to lack of contrast enhancement CARDIAC CHAMBERS: assessment is limited in the non-contrast enhanced study Overall normal dimensions CENTRAL VENOUS and PULMONARY VENOUS RETURN: normal Coronary Sinus: normal dimensions MITRAL VALVE: Mild inferior mitral annular calcification and subvalvular calcification CORONARY ANATOMY: Normal origin of the coronary arteries Diffuse, calcified atherosclerotic changes of the coronary arteries, precluding precise assessment with CT. - [place] AMOS and ARAVIND are normal size vessels without evidence of calcified atherosclerotic changes. AORTA AORTIC VALVE: Assessment is limited in the current study; minimal leaflet calcification AORTIC ROOT: upper normal size; Diameter: 3.7 cm Sinotubular Junction: maintained; mild calcification ASCENDING THORACIC AORTA: normal size; Diameter: 3.4 cm ; no calcification Aortic Arch: normal size; Maximum Diameter: 2.9 cm ; mild distal calcification Arch Branch Vessels: normal size; assessment for patency is not possible in the non-contrast enhanced study; mild proximal calcification; Descending Thoracic Aorta: normal size; mild calcification; Relationship OF CARDIOVASCULAR STRUCTURES TO STERNUM: The left brachio-cephalic vein lies immediately behind the manubrium sternum. AORTIC CALCIFICATION: see above. mild posterior calcification of the ascending thoracic aorta AORTIC ARCH BRANCH VESSELS: see above. Mid and distal subclavian arteries: normal size vessels without evidence of calcification Assessment of patency is not possible in a non-contrast study IMPRESSION: AORTIC VALVE: minimal leaflet calcification AORTIC ROOT: UPPER NORMAL SIZE; Diameter: 3.7 cm ASCENDING THORACIC AORTA: normal size; Diameter: 3.4 cm ; no calcification Diffuse, calcified atherosclerotic changes of the CORONARY ARTERIES, precluding precise assessment with CT. Non-calcified 2 mm nodule right middle lung lobe (Image # [id number]) Incidental Finding: No follow-up imaging for this incidentally detected lung nodule is recommended Rubi Images reconstructed, saved, and available in [email or web address], '[facility] Images' Animal Technician: PSCB Transcribe Date/Time: Apr 04 2018 8:13P Dictated by : REID CROSS MD This examination was interpreted and the report reviewed and electronically signed by: REID CROSS MD on Apr 04 2018 8:29PM EST [id number] PROGRESS Observed: 04/04/2018 Status: COMPLETED Source: [place] 7:13 PM [facility] REPOSITORY HNO ID: [id number] Author: NINA Leyva (Ct) Service: Radiology Author Type: Clinical Precision Dyer Type: Progress Notes Filed: 04/04/2018 7:13 PM Note Text: Radiology Service Progress Note PATIENT NAME: Rick George Jr. DATE OF SERVICE: April 04, 2018 TIME: 7:13 PM PATIENT IDENTITY VERIFICATION COMPLETED USING TWO (2) METHODS: Patient confirmed name verbally and ID band matches.. PATIENT GENDER DATA: Male PATIENT RELEVANT IMPLANT DATA REVIEWED: Yes RADIOLOGY DEPARTMENT: CT; Exam(s) Completed: Brain and Cardiac PERIPHERAL IV DATA: Not applicable SIGNED BY: NINA Leyva April 04, 2018 7:[address] BRAIN WO IVCON Observed: 04/04/2018 Status: F Source: [place] 7:12 PM [facility] REPOSITORY * * *Final Report* * * DATE OF EXAM: Apr 04 2018 7:12PM [facility] 0504 - CT BRAIN WO IVCON / PROCEDURE REASON: Stroke, follow up * * * * Physician Interpretation * * * * EXAMINATION: CT BRAIN WO IVCON CLINICAL HISTORY: Stroke, follow up Preoperative examination for CABG TECHNIQUE: Serial axial images without IV contrast were obtained from the vertex to the foramen magnum. MQ: [id number] CT Dose-Length Product (DLP): 722 mGy*cm CT Dose Reduction Employed: No dose reduction techniques were required COMPARISON: None. RESULT: Post-operative change: None. Acute change: No evidence of an acute infarct or other acute parenchymal process. Hemorrhage: No evidence of acute intracranial hemorrhage. Mass Lesion / Mass Effect: There is no evidence of an intracranial mass or extraaxial fluid collection. No significant mass effect. Chronic change: None apparent. Parenchyma: There is no significant volume loss. The brain parenchyma is otherwise within normal limits for age. Ventricles: The ventricles are within normal limits of size and configuration for age. Paranasal sinuses and skull base: The visualized paranasal sinuses are grossly clear. The skull base and imaged soft tissues are unremarkable. IMPRESSION: Normal study Animal Technician: PSCB Transcribe Date/Time: Apr 04 2018 7:27P Dictated by : DOMINIQUE THEODORE MD This examination was interpreted and the report reviewed and electronically signed by: DOMINIQUE THEODORE MD on Apr 04 2018 7:27PM EST [id number] HISTOPLASMA AG,URINE Collected: 04/04/2018 Status: F Source: [place] 7:02 PM [facility] REPOSITORY TYPE CODE TESTS RESULT OUT OF REFERENCE UNITS RANGE LAB HISTAG None detected. ng/mL Histoplasma Ag Ur None detected. Result Comment: (NOTE) Reference interval: None Detected Results reported as ng/mL in 0.4 - 19.0 ng/mL range. Results above the limit of detection but below 0.4 ng/mL are reported as 'Positive, Below the Limit of Quantification'. Results above 19.0 ng/mL are reported as 'Positive, Above the Limit of Quantification'. This test was developed and its performance characteristics determined by [employer] It has not been cleared or approved by the FDA; however, FDA clearance or approval is not currently required for clinical use. The results are not intended to be used as the sole means for clinical diagnosis or patient management decisions. Test performed by [employer], [address] [place] [address], [place] [address] Performed By: #### UHISTO #### [facility] [address] [place], [place] [address] CONSULT Observed: 04/04/2018 Status: COMPLETED Source: [place] 12:57 PM [facility] REPOSITORY HNO ID: [id number] Author: Bernadine Mackenzie) LIN Pozo Service: Wound Care Team Author Type: Registered Nurse Type: Consults Filed: 04/04/2018 1:07 PM Note Text: Wound Care Consult Team Per HANDP: DM2 c/b neuropathy, HTN, HLD, PAD/PVD, and CVA who presented for evaluation for PCI vs CABG after an NSTEMI on 04/01/18. ? Pt presented to [facility] on 04/01/18 w a 7d hx of increasing cough and SOB, CP wo radiation and diarrhea. CT PE wo PE but b/l effusions and groundglass opacities. EKG showed NSR, age unclear septal infarct, and non -specific STANDT wave abnmlities. Tn 6, BNP 600. Serial EKGs and Kylah showed no STEMI. Cdiff was pos and pt started on Flagyl. PATIENT NAME: Rick George Jr. Reason for Assessment: For puncture wound to R plantar heel. 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 He was treated by a physician at a local wound center and received oral antibiotics for 1 week. He also reported he received a Tetanus vaccine recently. On the R plantar foot was a clean red shallow dry wound that was healing, small in size, approximately 0.3x0.3x0.3cm. The surrounding skin was dry and flaky. There was no drainage, no surrounding redness. Wound covered with dry clean dressing. Wound Evaluation: Healing puncture wound on the R plantar heel. Goals: Maintain skin prevention measures based on Akbar risk assessment scores. Recommendations: 1. R plantar heel: Cleanse with NS or wound cleanser. Pat dry. Apply 2x2 gauze and secure with paper tape or Bandaid. Change daily. 2. Pt should wear non-skid socks while up ambulating. 3. Pt to f/u at local wound center. Electronically Signed By: Bernadine Pozo RN WCCT PT ED Observed: 04/04/2018 Status: COMPLETED Source: [place] 12:22 PM [facility] REPOSITORY O ID: [id number] Author: Froylan Benjamin RD Service: Nutrition Therapy Author Type: Registered Dietitian Type: Patient Education Filed: 04/04/2018 12:23 PM Note Text: TSAILE FOR HUMAN NUTRITION HEART FAILURE PATIENT EDUCATION TOPIC: Survival Skills: Diet PATIENT NAME: Rick George Jr. SERVICE DATE: April 04, 2018 Diagnosis: ADULT: Heart Failure EXEMPTION FROM DIET EDUCATION Patient/family refusal of diet education due to receipt of previous instructions Referral (Recommendation): Primary Care Provider MNT Billing Type: Initial Assess/15 min [address], LD Pager: [phone] April 04, 2018 12:22 PM NUTRITION Observed: 04/04/2018 Status: COMPLETED Source: [place] 11:59 AM [facility] [place] REPOSITORY HNO ID: [id number] Author: Froylan Washington) KATHRYN Benjamin Service: Nutrition Therapy Author Type: Registered Dietitian Type: Nutrition Filed: 04/04/2018 12:21 PM Note Text: NUTRITION THERAPY INITIAL ASSESSMENT SERVICE DATE: 04/04/2018 SERVICE TIME: 0900 RECOMMENDED MALNUTRITION DIAGNOSIS: NO MALNUTRITION IDENTIFIED NUTRITION CARE PLAN: Problem, Etiology and Signs/Symptoms: Suboptimal oral intake related to decreased appetite and ongoing diarrhea associated with CDiff as evidenced by pt interview. Intervention: 1) Continue HH 2g Na+ restricted diet with CHO restrictions 2) Adding G2 Gatorade BID for hydration 3) Recommend daily MVI to meet RDIs 4) Please document accurate intakes of meals to further assess nutritional status. Thank you. Goal: pt to consume >/ 75% of est needs prior to d/c Monitor and Evaluation: 1) PO intake 2) Supplement tolerance 3) Wt status 4) Biochemical Markers 5) Skin integrity 6) Plan of care Discharge Nutrition Recommendations: Diet: as above, unless otherwise indicated Supplements: high kcal/high ptn commercial beverage if PO </ 75% of est needs _ _ _ _ _ _ _ _ _ _ _ _ _ _ _ _ _ _ _ _ _ _ _ _ _ _ _ _ _ _ _ _ _ _ _ _ _ _ _ _ _ _ _ _ _ _ _ Per HPI: Rick George Jr. is a 57 year old male w PMH of DM2 c/b neuropathy, HTN, HLD, PAD/PVD, and CVA who presented for evaluation for PCI vs CABG after an NSTEMI on 04/01/18. ? Pt presented to [facility] on 04/01/18 w a 7d hx of increasing cough and SOB, CP wo radiation and diarrhea. CT PE wo PE but b/l effusions and groundglass opacities. EKG showed NSR, age unclear septal infarct, and non -specific STANDT wave abnmlities. Tn 6, BNP 600. Serial EKGs and Kylah showed no STEMI. Cdiff was pos and pt started on Flagyl. Pt was treated as likely HFpEF given SOB and gently diuresed, loaded w ASA and Brillinta. BB and ACEI were held due to low BP. LHC on 04/03/18 w LMT 25%, Prox LAD 85%, Dist LAD 75%, Prox LCX 75%, Mid LCX 85%, Ramus diffuse dz, and RCA 95%. Pt was TFd to [facility] for PCI w rotor vs CABG. 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 Pt denies any chewing/swallowing difficulties, no current N/V, + diarrhea (CDiff +). Pt denies any food allergies at present. Pt is agreeable to supplementation while admitted. GI symptoms: diarrhea (+CDiff) Abdominal Exam: not assessed Is the patient having any pain that is interfering with oral/enteral intake? No ANTHROPOMETRICS Height: 177.8 cm (5' 10) Admission Weight: 92 kg (202 lb 12.8 oz) Current Weight: 91 kg (200 lb 11.2 oz) Body mass index is 28.8 kg/m?. overweight Wt loss [employer]: 4.6% x ~1 year Pt states wt fluctuates between 195-210# HT/WT/BMI HEIGHT WEIGHT 04/27/2017 95.255 kg 07/27/2017 93.895 kg 10/12/2017 5' 10 93.895 kg 11/01/2017 89.359 kg 01/30/2018 93.895 kg 04/03/2018 5' 10 04/04/2018 91.037 kg [place] Body Weight: 75.5kg Resting Metabolic Rate: 1750 Estimated kilocalorie needs: 0666-4254 kilocalories determined by 25-30 kcal/kg @ [facility] Estimated protein needs: 83-98 grams determined by 1.1-1.3g/kg @ [place] weight Estimated fluid needs: ~1288-4573 milliliters based on 1 mL per kcal (unless otherwise indicated) NUTRITION FOCUSED PHYSICAL EXAM: Subcutaneous Fat Loss Orbital No fat loss Triceps No fat loss Mid-axillary at the iliac crest Unable to determine at this time Muscle Loss Locations: Temporalis No muscle loss Pectoralis No muscle loss Deltoids No muscle loss Interosseous No muscle loss Latissimus dorsi, trapezius Unable to determine at this time Quadriceps No muscle loss Gastrocnemius Unable to determine at this time Potential micronutrient deficiency revealed in: No deficiency identified Edema: No Ascites: No Assessment of Functional Status: Functional capacity is unrelated to nutrition status Temperature Max:37 ?C (98.6 ?F) BP 111/64 Pulse 88 Resp 20 Recent Labs 04/04/18 0158 04/04/18 0008 GLUC -- 130* BUN -- 25* CREAT -- 0.95 NA -- 139 K -- 3.7 CHLOR -- 106* CO2 -- 23 ALB -- 2.9* HB 10.8* 6.0* HCT 33.6* 19.1* WBC 14.34* 17.22* P -- 3.2 MG -- 1.9 Potential Signs of Inflammation: leukocytosis and hyperglycemia Current Pertinent Medications: 0.9% NaCl 3-5 mL 3-5 mL INTRAVENOUS q 12 H benzonatate 100 mg cap(s) (TESSALON PERLE) 100 mg ORAL TID traMADol 50 mg tab(s) (ULTRAM) 50 mg ORAL q 6 H PRN gabapentin 800 mg tab(s) (NEURONTIN) 800 mg ORAL TID cetirizine 10 mg tab(s) (ZyrTEC) 10 mg ORAL DAILY vancomycin 125 mg oral liquid (VANCOCIN) 125 mg ORAL QID tiZANidine 4 mg tab(s) (ZANAFLEX) 4 mg ORAL TID PRN carvedilol 6.25 mg tab(s) (COREG) 6.25 mg ORAL BID w MEALS insulin lispro injection (rapid acting) (HumaLOG) SUBCUTANEOUS w MEALS MNT Billing Type: Initial Assess/15 min 4 units SIGNATURE: Froylan Benjamin RD, LD PATIENT NAME: Rick George Jr. DATE: April 04, 2018 TIME: 12:00 PM PAGER: [phone] PROGRESS Observed: 04/04/2018 Status: COMPLETED Source: [place] 11:51 AM [facility] REPOSITORY HNO ID: [id number] Author: Tommie Gandhi Rt Service: (none) Author Type: (none) Type: Progress Notes Filed: 04/04/2018 11:52 AM Note Text: Radiology Service Progress Note PATIENT NAME: Rick George Jr. DATE OF SERVICE: April 04, 2018 TIME: 11:52 AM PATIENT IDENTITY VERIFICATION COMPLETED USING TWO (2) METHODS: Patient confirmed name verbally and ID band matches.. PATIENT GENDER DATA: Male PATIENT RELEVANT IMPLANT DATA REVIEWED: Not Applicable RADIOLOGY DEPARTMENT: General X-ray: Exam(s) Completed: Chest X-Ray PERIPHERAL IV DATA: Not applicable SIGNED BY: Tommie Gandhi Rt April 04, 2018 11:52 AM XR CHEST 2V FRONTAL/LAT Observed: 04/04/2018 Status: F Source: [place] 11:51 AM [facility] REPOSITORY * * *Final Report* * * DATE OF EXAM: Apr 04 2018 11:51AM [id number] - XR CHEST 2V FRONTAL/LAT / PROCEDURE REASON: Acute respiratory illness * * * * Physician Interpretation * * * * EXAMINATION: CHEST RADIOGRAPH (2 VIEW FRONTAL and LATERAL) Clinical History: Acute respiratory illness MQ: [id number]_5 Comparison: 04/04/2018 at 0521 hours ; frontal chest radiograph 07/27/2017 RESULT: Lines, tubes, and devices: None. Lungs and pleura: Lung volumes are low. There are bilateral thickened interstitial opacities with blurring of the vascular margins and peribronchial cuffing, most consistent with pulmonary edema. Atypical infection can have a similar appearance in the appropriate clinical setting. There are small bilateral pleural effusions. No pneumothorax. Cardiomediastinal silhouette: Cardiomediastinal silhouette is stable in size. Atherosclerotic calcification of the aortic arch is noted. Other: Mild degenerative endplate changes present within the thoracic spine. IMPRESSION: See results. Animal Technician: KAYE Transcribe Date/Time: Apr 04 2018 5:13P Dictated by : LINDSEY AGUILAR MD This examination was interpreted and the report reviewed and electronically signed by: LINDSEY AGUILAR MD on Apr 04 2018 5:19PM EST [id number] CONSULT Observed: 04/04/2018 Status: COMPLETED Source: [place] 10:40 AM [facility] REPOSITORY HNO ID: [id number] Author: Mercedes Montalvo Service: Cardiac Surgery Author Type: Nurse Practitioner Type: Consults Filed: 04/04/2018 1:07 PM Note Text: CONSULT HISTORY and PHYSICAL CARDIOTHORACIC SURGERY Consulting Service: Cardiothoracic Surgery Requesting Provider: [facility] Key Holder, Van Mcguire MD. Opinion/advice regarding: Pre-Op Open Heart Surgery Cardiothoracic Physician: Sammy Zhu M.D. NAME: Rick George Jr. HEIGHT: 177.8 cm WEIGHT: 91 kg Intended Procedure: Isolated CABG REDO: No STS SCORE: Has this patient been previously evaluated for Open Heart Surgery for this condition? Yes, but refered to [facility] for surgical managment HPI: (4) This is a 57 year old male who presents in consultation for an opinion regarding treatment options for coronary artery disease. He is currently symptomatic presented to the local hospital on 04/01 with shortness of breath cough, back pain and diarrhea. Cardiac enzymes were elevated prompted further cardiac work-up. Per note loaded with ASA and Brilinta, subsequently had LHC on 04/03 showed LMT 25%, Prox LAD 85%, Dist LAD 75%, Prox LCX 75%, Mid LCX 85%, Ramus diffuse dz, and RCA 95%. ? Since transfer, patient reports he still has non productive cough, never had chest pain or pressure. He is diagnosed with C-diff in the stool today 04/04, started on antibiotics and is on isolation. . 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 He had prior left sided stroke with left arm weakness residual, HTN, DM complicated by neuropathy. 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 Mazin Hinojosa Neuro, likely from DM and Vitamin B12 defic - Stroke ([facility]) 10/01/13 - Ulnar neuropathy 10/2013 b/l, chronic, Dr. Mazin Hinojosa EMG - Vitamin D deficiency 11/2013 PAST SURGICAL HISTORY: PAST SURGICAL HISTORY Procedure Laterality Date - DISCISSION,2ND CATARACT,LASER 06/07/2013 Yag Capsulotomy-Right eye - LASER, SECONDARY CATARACT 2006 OU - PAST SURGICAL HISTORY OF 02/2013 Amputation Right Gt toe FAMILY HISTORY: FAMILY HISTORY Problem Relation Age of Onset - Diabetes Mother - Heart Father FAMILY HISTORY OF CAD: Yes SOCIAL HISTORY: Social History Substance Use Topics - Smoking status: Never Smoker - Smokeless tobacco: Former User Types: Chew - Alcohol use 12.0 oz/week 8 Cans of Beer (12oz) per week Comment: 1-2 per day SOCIAL HISTORY OF IVDU: No MEDICATIONS: Prior to Admission Medications: ammonium lactate (LAC-HYDRIN) 12 % cream APPLY CREAM TOPICALLY TO AFFECTED AREA ONCE DAILY gabapentin (NEURONTIN) 800 mg tablet Take 800 mg by mouth three times daily. Magnesium 250 mg tab Take 1 tablet by mouth once daily. celecoxib (CELEBREX) 200 mg capsule Take 1 capsule by mouth once daily. Tadalafil (CIALIS) 20 mg tab(s) Take 1 tablet by mouth once daily. blood sugar diagnostic (FREESTYLE LITE STRIPS) test strip Check blood glucose three times daily. Dx: E11.42, Insulin dependent BASAGLAR KWIKPEN U-100 INSULIN 100 unit/mL (3 mL) inpn INJECT 20 UNITS SUBCUTANEOUSLY ONCE DAILY AT BEDTIME ketoconazole (NIZORAL) 2 % cream APPLY TO AFFECTED AREA ON FACE ONCE DAILY Cholecalciferol, Vitamin D3, 5,000 unit cap TAKE ONE CAPSULE BY MOUTH ONCE DAILY lisinopril (ZESTRIL,PRINIVIL) 30 mg tablet Take 1 tablet by mouth once daily. amLODIPine (NORVASC) 5 mg tablet Take 1 tablet by mouth once daily. cyanocobalamin 1,000 mcg/mL soln Inject 1 mL intramuscularly once every month. Biotin 1 mg tab Take 1 tablet by mouth once daily. aspirin 325 mg tablet Take 1 tablet by mouth once daily. diflorasone 0.05 % cream APPLY CREAM TO AFFECTED AREA TWICE DAILY NEEDED FOR RASH HUMALOG KWIKPEN 100 unit/mL inpn INJECT 12 TO 20 UNITS SUBCUTANEOUSLY WITH MEALS DIRECTED desonide (TRIDESILON) 0.05 % cream APPLY TO AFFECTED AREA ONCE DAILY NEEDED FOR FACE RASH [id number]-algal oil (METANX, ALGAL OIL,) 3 mg-35 mg-2 mg -90.314 mg cap Take 1 capsule by mouth once daily. Cetirizine 10 mg cap Take 1 capsule by mouth once daily. insulin needles, DISPOSABLE, (BD INSULIN PEN NEEDLE UF) 31 gauge x 5/16 ndle USE TO GIVE INSULIN INJECTIONS 4 TIMES DAILY HUMALOG KWIKPEN 100 unit/mL inpn INJECT 12 TO 20 UNITS SUBCUTANEOUSLY WITH MEALS DIRECTED FREESTYLE LANCETS 28 gauge misc USE DIRECTED 3 TO 4 TIMES DAILY TO TEST BLOOD GLUCOSE nortriptyline (PAMELOR) 50 mg capsule TAKE ONE CAPSULE BY MOUTH ONCE DAILY AT BEDTIME tiZANidine (ZANAFLEX) 4 mg tablet Take 1 tablet by mouth every 6 hours as needed. Blood Pressure Cuff - Home Use BLOOD PRESSURE CUFF FOR HOME USE. DX: LABILE BLOOD PRESSURE ketoconazole (NIZORAL) 2 % shampoo Apply 1 application to affected area once daily as needed (scalp). Ammonium,Pot.and Sodium Lactates (AMLACTIN) crea Apply 1 Tube to affected area once daily. baclofen (LIORESAL) 20 mg tablet Alcohol Swabs (ALCOHOL PREP PADS) padm Apply 1 application to affected area four times daily. Blood-Glucose Meter (FREESTYLE LITE METER) monitoring kit Freestyle LITE Meter Kit - Dx: Type 2 DM - Controlled E11.9 Urea 10 % lotion Apply 1 application to affected area three times daily. For feet Current hospital medications: 0.9% NaCl 3-5 mL 3-5 mL INTRAVENOUS q 12 H benzonatate 100 mg cap(s) (TESSALON PERLE) 100 mg ORAL TID traMADol 50 mg tab(s) (ULTRAM) 50 mg ORAL q 6 H PRN gabapentin 800 mg tab(s) (NEURONTIN) 800 mg ORAL TID cetirizine 10 mg tab(s) (ZyrTEC) 10 mg ORAL DAILY vancomycin 125 mg oral liquid (VANCOCIN) 125 mg ORAL QID nortriptyline 50 mg cap(s) (PAMELOR) 50 mg ORAL AT BEDTIME tiZANidine 4 mg tab(s) (ZANAFLEX) 4 mg ORAL TID PRN dextrose 40 % 15 g 15 g ORAL PRN glucagon 1 mg injection (GLUCAGEN) 1 mg INTRAMUSCULAR PRN dextrose 50% in water 25 mL syringe 12.5 g INTRAVENOUS PRN carvedilol 6.25 mg tab(s) (COREG) 6.25 mg ORAL BID w MEALS aspirin 81 mg chewable tab(s) 81 mg ORAL DAILY rosuvastatin 20 mg tab(s) (CRESTOR) 20 mg ORAL AT BEDTIME insulin lispro injection (rapid acting) (HumaLOG) SUBCUTANEOUS q 6 H heparin 5,000 Units injection 5,000 Units SUBCUTANEOUS q 12 H ALLERGIES: ALLERGIES Allergen Reactions - Lipitor [Atorvastat* Contraindication-Medical Surgical Elevated LFTs and elevated CK level - Metformin Diarrhea COMPLETE REVIEW OF SYSTEMS: (10) Review Of Systems GENERAL:Negative for malaise, significant weight loss and fever HEENT:Negative for frequent or significant headaches, significant changes in vision or vision problems, significant ear problems or hearing loss NECK:Negative for lumps, goiter, pain and significant neck swelling RESPIRATORY: see HPI CARDIOVASCULAR: Negative for chest pain, leg swelling and palpitations GASTROINTESTINAL: Negative for abdominal discomfort GENITOURINARY: Negative for dysuria, frequency and incontinence MUSCULOSKELETAL: Negative for joint pain or swelling, back pain, and muscle pain. NEUROLOGIC:left sided weakness SKIN:Negative for lesions, rash, and itching. PSYCHIATRIC: Negative for sleep disturbance, mood disorder and recent psychosocial stressors. HEMATOLOGIC/LYMPHATIC/IMMUNOLOGIC:Negative for prolonged bleeding, bruising easily, and swollen nodes. Neuro: -numbness tinging focal deficits PHYSICAL EXAM: (8) BP 114/68 Pulse 91 Temp 36.8 ?C (98.3 ?F) (Oral) Resp 16 Ht 177.8 cm (5' 10) Wt 91 kg (200 lb 11.2 oz) SpO2 97% BMI 28.80 kg/m? Constitutional: Well developed and Well nourished HEENT: EOM's intact and Fair dentition Resp: Decreased breath sounds and Respiratory effort: normal Cardiovascular: Regular rate AND rhythm and S1, S2 normal GI: Soft and Bowel sounds present Integumentary: Warm and Dry Musculoskeletal: Deformities noted: arthritic joints, fingers, Neurological/Psychiatric: Oriented to time, place AND person , Alert, Oriented and No gross focal neurologic deficits Additional systems reviewed: No additional systems reviewed Labs: Invalid input(s): MBP Recent Labs 04/04/18 0158 04/04/187 WBC 14.34* 17.22* HB 10.8* 6.0* HCT 33.6* 19.1* PLT 257 350 Recent Labs 04/04/187 INR 1.0 Recent Labs 06/19/18 0008 NA 139 K 3.7 CHLOR 106* CO2 23 BUN 25* CREAT 0.95 GLUC 130* ALKPHOS 58 ALT 25 AST 19 ALB 2.9* Cholesterol, Total 92 04/04/2018 HDL Cholesterol 24 04/04/2018 LDL Cholesterol 56 04/04/2018 DATA: I have personally reviewed the following data: outside [facility] loaded to [facility]. [facility] echo: CONCLUSIONS: - Exam indication: CAD - The left ventricle is normal in size. Left ventricular systolic function is normal. EF = 57 ? 5% (2D biplane) Normal left ventricular diastolic function. GLS= ?-16.9%. - The right ventricle is normal in size. Right ventricular systolic function is normal. - The patient has not had a prior CC echocardiographic exam for comparison. Conduit: Right hand dominant. No left PI as pt had extensive left arm surgery and weakness from stroke. Impression: This is a 57 year old year-old male, who is being evaluated for surgical intervention of coronary artery disease. In consideration for surgery, the patient's acute and chronic medical issues have been evaluated as documented above and reviewed in the electronic medical record. Active Hospital Problems Diagnosis - NSTEMI (non-ST elevated myocardial infarction) (HCC) - Coronary artery disease involving [place] coronary artery of [place] heart with unstable angina pectoris (HCC) Plan: Patient will be seen by the surgeon, Dr. Sammy Zhu M.D.. Before surgery the patient will need the following: Baseline CT brain WO contrast PFT with DLCO Chest CT cardiac WO contrast Leg vein mapping mammary artery US Anticipated Discharge Needs: CM consult for placement and PT/OT/RT evalulation for anticipated Home Care needs These findings will be communicated back to the requesting provider electronically. SIGNATURE:Mercedes Montalvo RN LANDSCAPE CONTRACTOR.TRACK LABORER PAGER:[phone] Date of Service: April 04, 2018 Time of Service: 1:07 PM ALLIED HEALTH Observed: 04/04/2018 Status: COMPLETED Source: [place] 10:37 AM [facility] REPOSITORY [facility] ID: [id number] Author: Alexandra Jordan RN Service: Infection Prevention Author Type: Registered Nurse Type: Allied Health Filed: 04/04/2018 10:39 AM Note Text: ISOLATION NOTE Admission Date: 04/03/2018 Type of Isolation Recommended: Contact Precautions - Soap and Water (Brown Isolation Sign) Indication: Clostridium difficile Date Isolation Initiated: 04/04/2018 Anticipated Duration of Isolation: Until patient completes 10-14 days of antibiotic therapy for C. difficile and no longer symptomatic Type and Date of Positive Test(s): patient tested positive for C.diff at outside hospital. SIGNATURE: Alexandra Jordan RN PATIENT NAME: Rick George Jr. DATE: April 04, 2018 TIME: 10:37 AM PAGER/CONTACT #: [phone] Infection Prevention after hours/weekend pager: [phone] CASE MGT INIT Observed: 04/04/2018 Status: COMPLETED Source: [place] SH[place] 9:17 AM [facility] REPOSITORY HNO ID: [id number] Author: Fabiola (Rn) LIN Anders Service: Care Management Author Type: Registered Nurse Type: Care Mgt Initial Assessment Filed: 04/04/2018 10:39 AM Note Text: CARE MANAGEMENT: ASSESSMENT AND DISCHARGE PLAN SERVICE DATE: 04/04/2018 SERVICE TIME: 09:10 AM PRIMARY CARE PHYSICIAN: Avery Escalante DO *Verified this is PCP ADMISSION STATUS: Inpatient Needs Prior to Discharge: To Be Determined MEDICAL: Patient/Provider Relations Representative Stated Goals: To improve my functional status To return home to life as it was Health Insurance: [facility] MEDICAID Health Issues Impacting Discharge Plan: PMH per HANDP: DM2 c/b neuropathy, HTN, HLD, PAD/PVD, and CVA. Currently admitted for PCI vs. CABG after NSTEMI 04/01/18. Last Admission Date: Previous admit date: 02/16/2013 Is this Within the Past 30 days? No Advance Directive: Current Advance Directive: None Green Building Engineer Assisted with AD Completion: Yes Action: Education Provided;Other: See Comment (Education provided on [place] Hierarchy of Decision Making) Copy of AD left at bedside for patient, explained process for completing these if he chooses to complete. Health Literacy: 1. How often do you need to have someone help you when you read instructions, pamphlets, or other written material from your doctor or pharmacy? Never - 1 2. How confident are you filling out medical forms by yourself? Extremely - 1 If Patient scores > 3 on either question, the following interventions were put into place: Patient did not score > 3 FUNCTIONAL AND COGNITIVE/BEHAVIORAL PRIOR TO ADMISSION: Baseline Mental Status: Alert AND Oriented, Person, Place , Time and Situation Functional Status: Independent Does Patient Currently Receive Any Community Services or Home Care? None Equipment Prior to Admission: None Has the Patient Been in a Assisted Facility in the Past 30 days? 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 to be determined Patient's transition needs and plan for meeting these needs: Patient lives with his who he reports can assist as needed after discharge. CM department will follow for evolving discharge needs. Does the patient have an acute stroke diagnosis, or has the patient had a stroke during this admission? No Medication Adherence: I am convinced of the importance of my prescription medication: Agree completely - 0 I worry that my prescription medication will do more harm than good to me Disagree completely - 0 I feel financially burdened by my ele-qk-kozqox expenses for my prescription medication: Disagree completely - 0 Patient is categorized as low risk < 2 Are you interested in bedside delivery of your medications? Yes Food Concerns: In the Last Month, Have You had Trouble Getting Food? No trouble getting food During the Last Month, Have You Worried Whether Your Food Would Run Out Before You Had Enough Money to Buy More? No Is the Patient Psychosocially Complex? No ASSESSMENT AND PLAN: Medical Needs: 2 or more chronic diseases Psychosocial Needs: None FREEDOM OF CHOICE EXPLAINED: N/A - no post acute skilled needs currently identified to provide FOC regarding. POTENTIAL TRANSITION PLANS Home To Be Determined Patient is a 57 year old male who was transferred from [facility] to [facility] on 04/03/18. Originally admitted 04/01/18, transferred for evaluation for PCI vs. CABG after NSTEMI 04/01/18. He reports being independent and living with his and 27 y/o daughter in [place], [place]. 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 Currently on precautions for c diff. Patient is on RA. Will follow and plan for discharge accordingly. SIGNATURE: Fabiola Anders RN PATIENT NAME: Rick George Jr. DATE: April 04, 2018 TIME: 9:17 AM PAGER/CONTACT #: [phone] XR ABDOMEN 1V SUPINE Observed: 04/04/2018 Status: F Source: [place] 5:44 AM [facility] REPOSITORY * * *Final Report* * * DATE OF EXAM: Apr 04 2018 5:44AM JIX [id number] - XR ABDOMEN 1V SUPINE / PROCEDURE REASON: Abd pain, unspecified * * * * Physician Interpretation * * * * ABDOMEN, 1 VIEW labeled 04/04/2018 0524 hours CLINICAL INFORMATION: Abd pain, unspecified . TECHNIQUE: Supine frontal view, 2 image(s) COMPARISON: 05/27/2016 RESULT: See impression. IMPRESSION: No dilated bowel. Mild discogenic degenerative changes. No pathologic calcification. Visualized lung bases grossly clear. Animal Technician: PSCB Transcribe Date/Time: Apr 04 2018 8:38A Dictated by : JOANNA DUPREE MD This examination was interpreted and the report reviewed and electronically signed by: JOANNA DUPREE MD on Apr 04 2018 8:39AM EST [id number] XR CHEST 1V FRONTAL Observed: 04/04/2018 Status: F Source: [facility] 5:44 AM [facility] REPOSITORY * * *Final Report* * * DATE OF EXAM: Apr 04 2018 5:44AM JIX [id number] - XR CHEST 1V FRONTAL PORT / PROCEDURE REASON: Acute respiratory illness * * * * Physician Interpretation * * * * EXAMINATION: CHEST RADIOGRAPH (PORTABLE SINGLE VIEW AP) Exam Date/Time: 04/04/2018 5:44 AM Clinical History: Acute respiratory illness MQ: XCPMC_5 Comparison: No prior available RESULT: See impression. IMPRESSION: Lines, tubes, and devices: None. Lungs and pleura: Lung volumes are low with bibasilar atelectasis. There are diffuse hazy alveolar opacities within the lungs bilaterally, right side slightly greater than left, which may be secondary to pulmonary edema or infection in the appropriate clinical setting. No substantial pleural effusion. Patient's chin partially overlies the lung apices; no large pneumothorax. Cardiomediastinal silhouette: Cardiomediastinal silhouette is borderline enlarged, likely accentuated by hypoinflation. Animal Technician: KAYE Transcribe Date/Time: Apr 04 2018 12:00P Dictated by : LINDSEY AGUILAR MD This examination was interpreted and the report reviewed and electronically signed by: LINDSEY AGUILAR MD on Apr 04 2018 12:44PM EST [id number] LIPID PANEL, BASIC Collected: 04/04/2018 Status: F Source: [place] 5:02 AM [facility] REPOSITORY TYPE CODE TESTS RESULT OUT OF REFERENCE UNITS RANGE LAB CHOL <200 mg/dL Cholesterol 92 Result Comment: <200 mg/dL, Desirable 200-239 mg/dL, Borderline high >239 mg/dL, High LAB TRIGLY <150 mg/dL Triglyceride 58 Result Comment: <150 mg/dL, Normal 150-199 mg/dL, Borderline high 200-499 mg/dL, High >499 mg/dL, Very high LAB HDL >39 mg/dL HDL-Cholesterol Low 24 Result Comment: 40-59 mg/dL, Acceptable >59 mg/dL, High: Negative risk factor for coronary heart disease <40 mg/dL, Low: Positive risk factor for coronary heart disease LAB LDL <100 mg/dL LDL-Cholesterol 56 Result Comment: <100 mg/dL, Optimal 100-129 mg/dL, Near optimal/above optimal 130-159 mg/dL, Borderline high 160-189 mg/dL, High >189 mg/dL, Very high Secondary prevention optimal LDL Cholesterol levels are recommended to be < 70 mg/dL LAB NONHDL <130 mg/dL Non HDL Cholesterol 68 Result Comment: <130 mg/dL, Optimal 130-159 mg/dL, Near optimal/above optimal 160-189 mg/dL, Borderline high 190-219 mg/dL, High >219 mg/dL, Very high Secondary prevention optimal non HDL Cholesterol levels are recommended to be < 100 mg/dL LAB FT hrs Fasting Time Unknown LAB VLDL <30 mg/dL VLDL Cholesterol 12 LAB TCHDL <5.10 TC:HDL Ratio 3.83 LAB LDLHDL <2.54 LDL:HDL Ratio 2.33 Result Comment: Reference: 1. National Cholesterol Education Program ATP III Guideline At-A-Glance Quick Desk Reference: National Heart, Lung, and Blood [place]. National Institutes of Health. 2001: NIH Publication No. 01-3305. 2. An International Atherosclerosis Society position paper: global recommendations for the management of dyslipidemia: executive summary, Atherosclerosis. 2014: 232(2):410-413. Performed By: #### LIPB, TSH, LPA, HBA1C #### [facility] [address] [address] TSH Collected: 04/04/2018 Status: F Source: [place] 5:02 AM [facility] REPOSITORY TYPE CODE TESTS RESULT OUT OF RANGE REFERENCE UNITS LAB TSH 0.400-5.500 uU/mL TSH 2.410 Performed By: #### LIPB, TSH, LPA, HBA1C #### [place] [address] LIPOPROTEIN (A) Collected: 04/04/2018 Status: F Source: [place] 5:02 [facility] REPOSITORY TYPE CODE TESTS RESULT OUT OF REFERENCE UNITS RANGE LAB LPA 0-40 mg/dL Lipoprotein (a) 20 Performed By: #### LIPB, TSH, LPA, HBA1C #### [place] [address] HEMOGLOBIN A1C Collected: 04/04/2018 Status: F Source: [place] 5:02 AM [facility] REPOSITORY TYPE CODE TESTS RESULT OUT OF REFERENCE UNITS RANGE LAB HGBA1C 4.3-5.6 % High Hemoglobin A1c 5.7 LAB HBA0 mg/dL Est. Average Glucose 117 Result Comment: eAG: (Estimated average glucose) is a calculated value from HgbA1c and is billing customer service representative of the average blood glucose level in the last 2-3 month period. Performed By: #### LIPB, TSH, LPA, HBA1C #### [place] [address] CONFIRM BLOOD TYPE Collected: 04/04/2018 Status: F Source: [place] 5:02 [facility] REPOSITORY TYPE CODE TESTS RESULT OUT OF REFERENCE UNITS RANGE LAB %ABR B ABO/RH(D) POSITIVE Performed By: #### CONABO #### [place] [address] Observed: 04/04/2018 Status: F Source: [place] BLOOD CULTURE 5:01 AM [facility] REPOSITORY Sp. Request/Comment: - The blood culture bottles are underfilled. Adding volume lower or higher than the 8 to 10 mL per bottle, which is the manufacturers recommended volume, may adversely affect the re covery and/or detection of organisms. 10.6CC Culture Result - No growth 5 days Performed By: #### BLCUL #### [facility] [address], [place] [address] CBC Collected: 04/04/2018 Status: F Source: [place] 1:58 AM [facility] REPOSITORY TYPE CODE TESTS RESULT OUT OF REFERENCE UNITS RANGE LAB WBC 3.70-11.00 k/uL WBC High 14.34 LAB RBC 4.20-6.00 m/uL Low RBC 3.41 LAB HGB 13.0-17.0 g/dL Low Hemoglobin 10.8 LAB HCT 39.0-51.0 % Low Hematocrit 33.6 LAB MCV 80.0-100.0 fL MCV 98.5 LAB MCH 26.0-34.0 pG MCH 31.7 LAB MCHC 30.5-36.0 g/dL MCHC 32.1 LAB RDWCV 11.5-15.0 % RDW-CV 13.2 LAB PLTCT 150-400 k/uL Platelet Count 257 LAB MPV 9.0-12.7 fL MPV 10.1 LAB ABSNUC <0.01 k/uL Absolute nRBC <0.01 Performed By: #### CBC #### [facility] [address], [place] [id number] HISTORY PHYSICAL Observed: 04/04/2018 Status: COMPLETED Source: [place] 1:09 AM [facility] REPOSITORY HNO ID: [id number] Author: Van Mcguire Service: Cardiovascular Medicine Author Type: Physician Type: HANDP Filed: 04/04/2018 3:06 PM Note Text: [facility]ARDI[facility]IC[facility] HISTORY AND PHYSICAL (Template ID [id number]) Rick George Jr. [id number] PRIMARY SERVICE: Cardiovascular Medicine: Clinical Cardiology DATE OF ADMISSION: 04/03/2018 CHIEF COMPLAINT NSTEMI w MVDz here for PCI w rotoblater vs CABG HISTORY OF PRESENT ILLNESS Rick George Jr. is a 57 year old male w PMH of DM2 c/b neuropathy, HTN, HLD, PAD/PVD, and CVA who presented for evaluation for PCI vs CABG after an NSTEMI on 04/01/18. Pt presented to [facility] on 04/01/18 w a 7d hx of increasing cough and SOB, CP wo radiation and diarrhea. CT PE wo PE but b/l effusions and groundglass opacities. EKG showed NSR, age unclear septal infarct, and non -specific STANDT wave abnmlities. Tn 6, BNP 600. Serial EKGs and Kylah showed no STEMI. Cdiff was pos and pt started on Flagyl. Pt was treated as likely HFpEF given SOB and gently diuresed, loaded w ASA and Brillinta. BB and ACEI were held due to low BP. LHC on 04/03/18 w LMT 25%, Prox LAD 85%, Dist LAD 75%, Prox LCX 75%, Mid LCX 85%, Ramus diffuse dz, and RCA 95%. Pt was TFd to [facility] for PCI w rotor vs CABG. PAST MEDICAL HISTORY PAST MEDICAL HISTORY Diagnosis Date - Cataract b/l, eye exam 05/29/13 - CTS (carpal tunnel syndrome) 10/2013 b/l, chronic, Dr. 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 Mazin Hinojosa Neuro, likely from DM and Vitamin B12 defic - Stroke ([facility]) 10/01/13 - Ulnar neuropathy 10/2013 b/l, chronic, Dr. Mazin Hinojosa EMG - Vitamin D deficiency 11/2013 PAST SURGICAL HISTORY Procedure Laterality Date - DISCISSION,2ND CATARACT,LASER 06/07/2013 Yag Capsulotomy-Right eye - LASER, SECONDARY CATARACT 2006 OU - PAST SURGICAL HISTORY OF 02/2013 Amputation Right Gt toe FAMILY HISTORY FAMILY HISTORY Problem Relation Age of Onset - Diabetes Mother - Heart Father SOCIAL HISTORY Social History Substance Use Topics - Smoking status: Never Smoker - Smokeless tobacco: Former User Types: Chew - Alcohol use 12.0 oz/week 8 Cans of Beer (12oz) per week Comment: 1-2 per day HOME MEDICATIONS ammonium lactate (LAC-HYDRIN) 12 % cream APPLY CREAM TOPICALLY TO AFFECTED AREA ONCE DAILY gabapentin (NEURONTIN) 800 mg tablet Take 800 mg by mouth three times daily. Magnesium 250 mg tab Take 1 tablet by mouth once daily. celecoxib (CELEBREX) 200 mg capsule Take 1 capsule by mouth once daily. Tadalafil (CIALIS) 20 mg tab(s) Take 1 tablet by mouth once daily. blood sugar diagnostic (FREESTYLE LITE STRIPS) test strip Check blood glucose three times daily. Dx: E11.42, Insulin dependent BASAGLAR KWIKPEN U-100 INSULIN 100 unit/mL (3 mL) inpn INJECT 20 UNITS SUBCUTANEOUSLY ONCE DAILY AT BEDTIME ketoconazole (NIZORAL) 2 % cream APPLY TO AFFECTED AREA ON FACE ONCE DAILY Cholecalciferol, Vitamin D3, 5,000 unit cap TAKE ONE CAPSULE BY MOUTH ONCE DAILY lisinopril (ZESTRIL,PRINIVIL) 30 mg tablet Take 1 tablet by mouth once daily. amLODIPine (NORVASC) 5 mg tablet Take 1 tablet by mouth once daily. cyanocobalamin 1,000 mcg/mL soln Inject 1 mL intramuscularly once every month. Biotin 1 mg tab Take 1 tablet by mouth once daily. aspirin 325 mg tablet Take 1 tablet by mouth once daily. diflorasone 0.05 % cream APPLY CREAM TO AFFECTED AREA TWICE DAILY NEEDED FOR RASH HUMALOG KWIKPEN 100 unit/mL inpn INJECT 12 TO 20 UNITS SUBCUTANEOUSLY WITH MEALS DIRECTED desonide (TRIDESILON) 0.05 % cream APPLY TO AFFECTED AREA ONCE DAILY NEEDED FOR FACE RASH [id number] oil (METANX, ALGAL OIL,) 3 mg-35 mg-2 mg -90.314 mg cap Take 1 capsule by mouth once daily. Cetirizine 10 mg cap Take 1 capsule by mouth once daily. insulin needles, DISPOSABLE, (BD INSULIN PEN NEEDLE UF) 31 gauge x 5/16 ndle USE TO GIVE INSULIN INJECTIONS 4 TIMES DAILY HUMALOG KWIKPEN 100 unit/mL inpn INJECT 12 TO 20 UNITS SUBCUTANEOUSLY WITH MEALS DIRECTED FREESTYLE LANCETS 28 gauge misc USE DIRECTED 3 TO 4 TIMES DAILY TO TEST BLOOD GLUCOSE nortriptyline (PAMELOR) 50 mg capsule TAKE ONE CAPSULE BY MOUTH ONCE DAILY AT BEDTIME tiZANidine (ZANAFLEX) 4 mg tablet Take 1 tablet by mouth every 6 hours as needed. Blood Pressure Cuff - Home Use BLOOD PRESSURE CUFF FOR HOME USE. DX: LABILE BLOOD PRESSURE ketoconazole (NIZORAL) 2 % shampoo Apply 1 application to affected area once daily as needed (scalp). Ammonium,Pot.and Sodium Lactates (AMLACTIN) crea Apply 1 Tube to affected area once daily. baclofen (LIORESAL) 20 mg tablet Alcohol Swabs (ALCOHOL PREP PADS) padm Apply 1 application to affected area four times daily. Blood-Glucose Meter (FREESTYLE LITE METER) monitoring kit Freestyle LITE Meter Kit - Dx: Type 2 DM - Controlled E11.9 Urea 10 % lotion Apply 1 application to affected area three times daily. For feet INPATIENT MEDICATIONS Current hospital medications: 0.9% NaCl 3-5 mL 3-5 mL INTRAVENOUS q 12 H benzonatate 100 mg cap(s) (TESSALON PERLE) 100 mg ORAL TID traMADol 50 mg tab(s) (ULTRAM) 50 mg ORAL q 6 H PRN gabapentin 800 mg tab(s) (NEURONTIN) 800 mg ORAL TID Cetirizine cap 10 mg 1 capsule ORAL DAILY vancomycin 125 mg oral liquid (VANCOCIN) 125 mg ORAL QID nortriptyline 50 mg cap(s) (PAMELOR) 50 mg ORAL AT BEDTIME Biotin tab 1 mg 1 tablet ORAL DAILY tiZANidine 4 mg tab(s) (ZANAFLEX) 4 mg ORAL TID PRN dextrose 40 % 15 g 15 g ORAL PRN glucagon 1 mg injection (GLUCAGEN) 1 mg INTRAMUSCULAR PRN dextrose 50% in water 25 mL syringe 12.5 g INTRAVENOUS PRN insulin lispro injection (rapid acting) (HumaLOG) SUBCUTANEOUS AT BEDTIME insulin lispro injection (rapid acting) (HumaLOG) SUBCUTANEOUS w MEALS carvedilol 6.25 mg tab(s) (COREG) 6.25 mg ORAL BID w MEALS aspirin 81 mg chewable tab(s) 81 mg ORAL DAILY ALLERGIES ALLERGIES Allergen Reactions - Lipitor [Atorvastat* Contraindication-Medical Surgical Elevated LFTs and elevated CK level - Metformin Diarrhea REVIEW OF SYSTEMS Constitutional: No weight loss, malaise or fevers. HEENT: Negative for frequent or significant headaches, No changes in hearing or vision, no nose bleeds or other nasal problems Respiratory: Positive for productive cough Cardiovascular: Negative for leg swelling and palpitations and Positive for chest pain at rest and claudication Gastrointestinal: Negative for abdominal discomfort, blood in stools or black stools or change in bowel habits + diarrhea Genitourinary: No history of dysuria, frequency, or incontinence and No difficulty urination, nocturia >1 times per night or hematuria Endocrine: Negative for cold or heat intolerance, polyuria, polydipsia and goiter Hematologic: Negative for prolonged bleeding, bruising easily or swollen nodes Neurologic: No history or headaches, syncope, paralysis, seizures or tremors Integumentary: Negative for lesions, rash, and itching. PHYSICAL EXAM BP 132/65 Pulse 99 Temp 36.9 ?C (98.5 ?F) (Oral) Resp 16 Ht 177.8 cm (5' 10) Wt 92 kg (202 lb 12.8 oz) SpO2 96% BMI 29.10 kg/m? General Appearance: Well developed, Well nourished , Obese and No acute distress HEENT: PERRLA, EOM's intact, Sclera anicteric, Fair dentition and JVD - no Lungs: Crackles b/l, cough present Heart: Regular rate AND rhythm, nml S1, S2, no m/r/g Abdomen: Soft, Non-tender and Bowel sounds present Skin: Warm and Dry Musculoskeletal: No deformities and No joint deformities Neurologic/Psychiatric: Oriented to time, place AND person , No gross focal neurologic deficits but some numbness in feet b/l DATA Laboratory: Reviewed Recent Labs 04/04/18 0008 INR 1.0 Cholesterol, Total (mg/dL) Date Value 11/01/2017 154 HDL Cholesterol (mg/dL) Date Value 11/01/2017 23 LDL Cholesterol (mg/dL) Date Value 11/01/2017 107 Triglyceride (mg/dL) Date Value 11/01/2017 122 Hemoglobin A1C (%) Date Value 01/25/2018 6.1 EK04/03/2018 NSR Septal infarct, age undetermined Nonspec ST T wave abnml, consider lateral ischemia Chest Radiograph: Pending Echocardiogram: Pending Stress Testing: NA Cardiac Catheterization: 04/03/18 LHC done at [facility], uploaded into [facility] Epic LMT 25% LAD Prox 85%, Dist 75% LCX Prox 75%, Dist 85% RCA 95% Other Radiology: 04/01/18 done at [facility] CTA Chest - no PE, small b/l effusions, some pulm congestion w ground glass opacities ASSESSMENT AND PLAN Rick George Jr. is a 57 year old male w PMH of DM2 c/b neuropathy, HTN, HLD, PAD/PVD, and CVA who presented for evaluation for PCI vs CABG after an NSTEMI on 04/01/18. Pt has multivessel dz and DM2 so will likely go for CABG, however patient has at least one active infection, Cdiff and possible PNA. Will start CAD Rxs, prep for CABG, and treat/work up infections. Active Hospital Problems Diagnosis - NSTEMI (non-ST elevated myocardial infarction) (HCC) - Coronary artery disease involving [place] coronary artery of [place] heart with unstable angina pectoris (HCC) Neuro #Peripheral Neuropathy 2/2 DM2 Mild numbness in feet b/l Plan Cont Gabapentin CV #NSTEMI in s/o 3VDz Tn peak 6, BNP ~600 Plan Plan for CABG, workup Review CD with Staff for possible repeat [facility] Echo Carotid US for CABG prep See plan for CAD #CAD LMT 25% LAD Prox 85%, Dist 75% LCX Prox 75%, Dist 85% RCA 95% Plan ASA Hold Brillinta for possible upcoming CABG No heparin gtt given last CP on Tuesday, no current CP Start Coreg If room on BP, add lisinopril tomorrow Check lipid panel, TSH, A1c Lipoprotein A given low total Chol and 3VDz Add low dose statin if possible given hx of CK elevation #HTN Plan Cont Coreg Add lisinopril if BP room Pulmonary #Pneumonia? DDx is PNA vs. Acute CHF 2/2 NSTEMI Plan CXR 2 view to look for consolidation, this does not r/o atypicals Blood cx Histo and Strep Ag Tessalon pearls Will avoid treatment for now given likelihood of CHF and lack of consolidation on CXR frontal Will reassess if no improvement with diuresis and/or continued/worsening s/s GI #Cdiff Pos test at OSH, pt received Flagyl Some improvement in frequency of diarrhea on Flagyl Now with LUQ pain/ttp Plan Vancomycin day #1 given, tx length 10 days KUB for LUQ quadrant pain in s/o Cdiff Endocrine #DM2 A1c ~6, c/b neuropathy Plan SSI Insulin Diet Hrt Healthy 2gNa DVT ppx - heparin sq GI ppx - not indicated Case to be discussed with staff Blanco Paul MD Pager [phone] (please see below for after hours communication) 04/04/2018 1:09 AM For communication after 5 pm on weekdays and after 12 pm on weekends, please page the following: - Clinical Cardiology patients on all floors: page [phone] - Other Cardiology patients on J5 and J6: page [phone] - Other Cardiology patients on J7 and J8: page [phone] [facility] STAFF PHYSICIAN NOTE OF PERSONAL INVOLVEMENT IN CARE IMPRESSION: Patient is a 57 year old male with: #Coronary artery disease status post NSTEMI and found to have severe multivessel disease (I have reviewed his cardiac catheterization and have uploaded to [employer]) #PAD #Diabetes mellitus #Prior CVA #Mixed hyperlipidemia #Current clostridium difficile infection PLAN: I have reviewed his cardiac catheterization which is now uploaded on [employer]. Since he has severe multivessel disease including proximal LAD disease along with diabetes, I believe he would be better served with CABG. So we will continue treatment of his c.diff first and then discuss his candidacy for surgery with the CTS team. If surgery is not an option then we can consider multivessel PCI. I discussed with him both of these options and he is in agreement with that plan. I have reviewed the documentation obtained and documented by the Resident and have reviewed and updated the problem list as appropriate. I have personally performed a face to face assessment of the patient and have personally participated in the rubi components. I have discussed the case and management of the patient's care. STAFF PHYSICIAN: Van Mcguire MD DATE OF SERVICE: April 04, 2018 TIME OF SERVICE: 3:02 PM TX CONFIRM ABO/RH Collected: 04/04/2018 Status: F Source: [place] [facility] USE 1:00 AM [facility]IN [facility] ONLY REPOSITORY TYPE CODE TESTS RESULT OUT OF REFERENCE UNITS RANGE LAB %ABR B ABO/RH(D) POSITIVE Performed By: #### TRCABO #### [facility] [address] [place], [place] [address] NURSING PROG Observed: 04/04/2018 Status: COMPLETED Source: [place] 12:40 AM [facility] REPOSITORY HNO ID: [id number] Author: Pamela (Rn) LIN Douglas Service: (none) Author Type: Registered Nurse Type: Nursing Progress Note Filed: 04/04/2018 12:44 AM Note Text: Nursing Progress Note Patient Name: Rick George Jr. [id number] Transfer Note: Patient transferred into [facility] room 13, report taken from LIN Gonzalez @[facility], in stable condition. Actions taken: Pt oriented to room, call light function, my safety plan initiated. Unable to play falls video for pt, educated completed over risk for falls and the need to call before getting up. Skin check done with Esequiel ALCARAZ. Wound from stepping on nail noted on right heel. Will continue to monitor This note was completed by: Pamela Dumont RN PROTIME Collected: 04/04/2018 Status: F Source: [place] 12:08 AM [facility] REPOSITORY TYPE CODE TESTS RESULT OUT OF RANGE REFERENCE UNITS LAB PSEC 9.7-13.0 sec PT Sec 10.8 LAB INR 0.9-1.3 PT INR 1.0 Result Comment: Vitamin K Antagonist (VKA) Therapeutic Range: INR 2 to 3 (Target INR of 2.5) Note: For patients treated with VKA drugs, such as warfarin, the [place] [employer] 2012 Guideline recommends a therapeutic INR range of 2 to 3 (target INR of 2.5). This recommendation includes high-risk patients with antiphospholipid syndrome with previous arterial or venous thromboembolism, current-generation mechanical or bioprosthetic aortic heart valve replacement. Note: Patients with mechanical aortic valve replacement and additional risk factors for thromboembolic events (atrial fibrillation, previous thromboembolism, LV dysfunction, hypercoagulable conditions) or an older generation mechanical AVR (i.e., ball in-Cage) or any mechanical MVR should have a INR therapeutic range of 2.5 to 3.5 (target INR of 3). Michael GH, et al. Chest 2012, 141:7S-47S David DAVEY, et al. [facility] 2017, 70: 252-289 Performed By: #### PT, CMP, MG1, PHOS, CBCDIF #### [facility] [address] [place], [place] [address] COMP METABOLIC PANEL Collected: 04/04/2018 Status: F Source: [place] 12:08 AM [facility] REPOSITORY TYPE CODE TESTS RESULT OUT OF REFERENCE UNITS RANGE LAB TP 6.3-8.0 g/dL Low Protein, Total 5.8 LAB ALB 3.9-4.9 g/dL Low Albumin 2.9 LAB CA 8.5-10.2 mg/dL Low Calcium, Total 8.0 LAB TBIL 0.2-1.3 mg/dL Bilirubin, Total 0.2 LAB ALKP 36-108 U/L Alkaline Phosphatase 58 LAB AST 14-40 U/L AST 19 LAB GLU 74-99 mg/dL Glucose High 130 Result Comment: The [place] [employer] (ADA) provides guidance for cutoff values for fasting glucose and random glucose. The ADA defines fasting as no caloric intake for at least 8 hours. Fas ting plasma glucose results between 100 to 125 mg/dL indicate increased risk for diabetes (prediabetes). Fasting plasma glucose results greater than or equal to 126 mg/dL meet the criteria for diagnosis of diabetes. In the absence of unequivocal hyperglycemia, results should be confirmed by repeat testing. In a patient with classic symptoms of hyperglycemia or hyperglycemic crisis, random plasma glucose results greater than or equal to 200 mg/dL meet the criteria for diagnosis of diabetes. Reference: Standards of Medical Care in Diabetes 2016, [place] [employer] Association. Diabetes Care. 2016.39(Suppl 1). LAB BUN 9-24 mg/dL BUN High 25 LAB CRET 0.73-1.22 mg/dL Creatinine 0.95 LAB NA 136-144 mmol/L Sodium 139 LAB K 3.7-5.1 mmol/L Potassium 3.7 LAB CL 97-105 mmol/L Chloride High 106 LAB CO2 22-30 mmol/L CO2 23 LAB AGAP 9-18 mmol/L Anion Gap 10 LAB ALT 10-54 U/L ALT 25 LAB GFRAA eGFR- Amer. >60 LAB GFRNAA . eGFR-All Other Races >60 Result Comment: eGFR (Estimated GFR) Units of measure: mL/min/1.73 meters squared eGFR is derived from the reexpressed MDRD Study equation using the following parameters: serum creatinine, age, gender and race. The creatinine assay has been calibrated to be traceable to IDMS. An eGFR <60 mL/min/1.73m2 for >3 months is consistent with chronic kidney disease. Refer to KDOQI guidelines for clinical interpretation. In patients with unstable renal function, e.g. those with acute kidney injury, the eGFR may not accurately reflect actual GFR. Performed By: #### PT, CMP, MG1, PHOS, CBCDIF #### [facility] [address] [address] MAGNESIUM Collected: 04/04/2018 Status: F Source: [place] 12:08 AM [facility] REPOSITORY TYPE CODE TESTS RESULT OUT OF REFERENCE UNITS RANGE LAB MG 1.7-2.3 mg/dL Magnesium 1.9 Performed By: #### PT, CMP, MG1, PHOS, CBCDIF #### [facility] [address] [address] PHOSPHORUS Collected: 04/04/2018 Status: F Source: [place] 12:08 AM [facility] REPOSITORY TYPE CODE TESTS RESULT OUT OF REFERENCE UNITS RANGE LAB PHOS 2.7-4.8 mg/dL Phosphorus 3.2 Performed By: #### PT, CMP, MG1, PHOS, CBCDIF #### [place] [address] CBC AND DIFFERENTIAL Collected: 04/04/2018 Status: F Source: [place] 12:08 AM [facility] REPOSITORY TYPE CODE TESTS RESULT OUT OF RANGE REFERENCE UNITS LAB WBC 3.70-11.00 k/uL High WBC 17.22 Result Comment: Result checked and verified No clot detected. LAB RBC 4.20-6.00 m/uL RBC Low 1.90 LAB HGB 13.0-17.0 g/dL Hemoglobin Low 6.0 LAB HCT 39.0-51.0 % Hematocrit Low 19.1 LAB MCV 80.0-100.0 fL MCV High 100.5 LAB MCH 26.0-34.0 pG MCH 31.6 LAB MCHC 30.5-36.0 g/dL MCHC 31.4 LAB RDWCV 11.5-15.0 % RDW-CV 13.3 LAB PLTCT 150-400 k/uL Platelet Count 350 LAB MPV 9.0-12.7 fL MPV 10.3 LAB ANEUT % Neut% 80.9 LAB AANEUT 1.45-7.50 k/uL Abs Neut High 13.93 LAB ALYMP % Lymph% 7.8 LAB AALYMP 1.00-4.00 k/uL Abs Lymph 1.34 LAB AMONO % Leslie% 8.7 LAB AAMONO <0.87 k/uL Abs Leslie High 1.50 LAB AEOS % Eosin% 1.7 LAB AAEOS <0.46 k/uL Abs Eosin 0.29 LAB ABASO % Baso% 0.0 LAB AABASO <0.11 k/uL Abs Baso 0.00 LAB AMYELO % Myelo% 0.9 LAB ANIIMI Anisocytosis Present LAB LFTIMI Left Shift Present LAB POLIMI Polychromasia Slight LAB PLTEST Platelet Estimate Platelet estimate adequate LAB DTYP DTYPE Manual Diff Performed By: #### PT, CMP, MG1, PHOS, CBCDIF #### [facility] [address] [place] [id number] TYPE AND SCREEN Collected: 04/04/2018 Status: F Source: [place] 12:08 AM [facility] REPOSITORY TYPE CODE TESTS RESULT OUT OF REFERENCE UNITS RANGE LAB %ABR B ABO/RH(D) POSITIVE LAB % Antibody NEG Screen Performed By: #### TSCR #### [facility] [address], [place] [address] BEDSIDE GLUCOSE Collected: 04/03/2018 Status: F Source: [place] 9:10 PM [facility] REPOSITORY TYPE CODE TESTS RESULT OUT OF REFERENCE UNITS RANGE LAB L501.080 70-110 mg/dL High BEDSIDE GLU 196 Result Comment: MANAGEMENT OF PATIENT CARE PER NURSING PROTOCOL Performed By: #### L501.080 #### [facility] Point of Care [address] [place], [place] [id number] BEDSIDE GLUCOSE Collected: 04/03/2018 Status: F Source: [place] 4:14 PM [facility] REPOSITORY TYPE CODE TESTS RESULT OUT OF REFERENCE UNITS RANGE LAB L501.080 70-110 mg/dL High BEDSIDE GLU 170 Result Comment: MANAGEMENT OF PATIENT CARE PER NURSING PROTOCOL Performed By: #### L501.080 #### [facility] Point of Care [address] [place] [address] DISCHARGE SUMMARY Observed: 04/03/2018 Status: F Source: [place] 2:20 PM [facility] REPOSITORY [facility] Medical Records Department [address] [place] [address] Discharge Summary 04/03/18 1056 MR#: [id number] Acct: [id number] Name: RICK GEORGE Rep #: [id number] : 1960 57 From: Shania Hernandez PCP: Avery Fischer DO Status: ADM IN Y Location: [place] [address] Discharge Date and Diagnosis - Problem List Patient Problems: Active and Suspected Problems (Last Reviewed 11/01/17 @ 16:03 by Wilmer Cartwright) NSTEMI (non-ST elevated myocardial infarction) (Acute) NSTEMI (non-ST elevated myocardial infarction) (Acute) CHF (congestive heart failure) (Acute) Date of Admission: 04/01/18 Date of Discharge: 04/03/18 - Primary Discharge Diagnosis Active and Suspected Problems (Last Reviewed 11/01/17 @ 16:03 by Wilmer Cartwright) NSTEMI w/ CAD w/ Underlying Diffuse Severe Appearing Multivessel Disease Acute Hypoxic Respiratory Failure (Hypoxia, increased RR, increased work of breathing) secondary to CHF exacerbation CHF, Acute Exacerbation, Diastolic Acute Clostridium Difficile Infection Chronic RLE Wound, present on admission, [facility] - Secondary Discharge Diagnosis Chronic Problems (Last Reviewed 11/01/17 @ 16:03 by Wilmer Cartwright) Other specified peripheral vascular diseases (Chronic) Xerosis of skin (Chronic) Non-compliance (Chronic) Skin ulcer of finger with fat layer exposed (Chronic) Right Index Finger 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) Hypertension (Chronic) Neuropathy (Chronic) Most likely severe diabetic neuropathy Workup [facility] Cerebrovascular disease (Chronic) Right thalamic stroke Hospital Course and Treatment Consultations 04/01/18 16:32 Consult: Onc/Wound/enterprise application analyst Routine Comment: Cardiology Dr. Ring Operations: None Procedures: 2-D Echocardiogram, Cardiac catheterization, EKG Summary of Care Provided: The patient is a 57 y/o M w/ PMH: Diabetes mellitus type II w/ Neuropathy, Hx CVA (R Thalamic CVA), HTN, HLD, Obesity, Chronic Pain Syndrome, PAD/PVD s/p prior amputation R toe compounded by hx frostbite more recently [facility] for RLE Chronic wounds who presents to the [facility] ED on 04/01/18 with history of ongoing dyspnea, worsening progressively over the last 48 hours with additionally chest discomfort, substernal without any radiation with additionally noted ongoing diarrhea. In the emergency room CTPA was performed with no evidence of acute PE but notable congestion and pleural effusions, EKG with no acute evidence of ischemia but noted initial troponin 0.020, BNP 564.5. Patient was admitted to the PCU, maintained on telemetry monitoring and initiated on treatment for CHF exacerbation and an STEMI with cardiology consultation and evaluation, obtained cardiac enzyme series, obtained serial EKGs, continued gentle IV lasix diuresis, monitored I/Os, maintained on intake restriction, continue medical therapy w/ asa, brillinta, noted statin allergy, BB, ACEI deferred given low BP and directed per Cardiology. 04/03/18 Cardiac catheterization performed per Dr. Ring with noted elevated LV end-diastolic pressure, mild segmented LV systolic dysfunction, LVEF 50%, [place] multivessel coronary disease with recommendations including risk factor modification, medical therapy and transfer to tertiary care center for evaluation for possible CABG. Additionally, patient upon admission did have continued diarrhea which she had noted had been ongoing for several days with C. difficile assay obtained and notable for Clostridium difficile patient initiation on oral Flagyl regimen. [facility] contacted for transfer and accepted by cardiology service for continued evaluation for coronary disease with an STEMI with underlying diffuse severe appearing multivessel disease, acute hypoxic respiratory failure secondary to acute CHF exacerbation presumed diastolic as well as acute Clostridium difficile infection. DAY OF DISCHARGE PROGRESS NOTE: Subjective: Patient without acute event overnight per self and nursing report. Patient denies fever, chills, nausea, emesis, abdominal pain, chest pain or dyspnea. He notes feeling improved since initial presentation with resolution of prior dyspnea. Reviewed findings of recent cardiac catheterization and patient states he is not surprised as he is a remarkable family history of coronary disease including both his father and his grandfather both of which received bypass surgeries. Patient agreeable to discharge to [facility], pending bed, accepted per Cardiology service. Objective: T 98.7, heart rate 84, BP 113/76, respiratory rate 16, 94% room air. Physical Examination: General: awake, alert, oriented x 3 and cooperative, seated upright in the bed, NAD. Skin: normal color, turgor, no icterus, cyanosis. HEENT: AT/NC, EOMI, PERRLA, MMM. Lungs: Improved BS, improved effort, improved rales BL bases, no ronchi or wheezing. Heart: Regular rate and rhythm; no gallop, rub audible. Abdomen: soft, NTTP, ND, normal BS. Extremities: no cyanosis, clubbing, trace BL LE edema. Neurological: patient awake, alert, oriented x 3; cognitive function appears intact upon questioning,; pupils equally reactive to light and accomodation; cranial nerves II-XII grossly normal, moving all 4 extremities, strength moderately globally decreased. Psychiatric: affect appears normal, no acute evidence of depressive or anxiety feelings. Assessment and Plan: Please see hospital summary above. Home Medications: Medications to take at Discharge Tizanidine HCl [Zanaflex] 4 mg PO 4X/DAY PRN PRN 11/07/14 Ammonium Lactate [Amlactin] 57 gm TP PRN PRN 10/04/17 Baclofen 20 mg PO TID 10/04/17 Celecoxib [Celebrex] 200 mg PO DAILY 10/04/17 Cholecalciferol (Vitamin D3) [Vitamin D3] 5,000 unit PO DAILY 10/04/17 Levomefolate/B6/B12/Algal Oil [Metanx Capsule] 1 each PO DAILY 10/04/17 Nortriptyline HCl 50 mg PO QHS 10/04/17 Aspirin 325 mg PO DAILY@0800 10/21/17 Amlodipine [Norvasc] 5 mg PO DAILY 04/01/18 Biotin 1 mg PO DAILY 04/01/18 Cyanocobalamin (Vitamin B-12) [Vitamin B-12] 1,000 mcg PO 04/01/18 Desonide 0.05% [Desowen 0.05% Cream] 1 applic TOPICAL BID 04/01/18 Diflorasone Diacetate [Psorcon] 1 applicatio TP BID PRN 04/01/18 Gabapentin [Neurontin] 900 mg PO TIDCM 04/01/18 Insulin Glargine,Hum.rec.anlog [Basaglar Kwikpen U-100] 20 unit SQ QHS 04/01/18 Insulin Lispro [Humalog KwikPen] See Protocol SQ TIDCM 04/01/18 Ketoconazole [Nizoral] 1 applic TOPICAL DAILY 04/01/18 Lisinopril [Zestril] 30 mg PO DAILY 04/01/18 Magnesium 250 mg PO DAILY 04/01/18 Primary Care Physician: Avery Escalante DO [Primary Care Provider] - Patient Instructions: Self-Care for Strains and Sprains Disposition: [facility] Minutes spent on discharge:: 35 Patient Condition:: Stable Medical Necessity - Tobacco Use Smoking Status: Never smoker Tobacco Use: Non-smoker Meaningful Use Info Meaningful Use Diagnoses (Choose all that apply): AMI, CHF - AMI Aspirin given w/in 24hrs of arrival?: Yes ASA at discharge?: Yes Statins at discharge?: No Reason statins not ordered:: Allergy Reinier/ARB at discharge?: No Reason Reinier/ARB not ordered:: Hypotension Beta Kurt at discharge?: Yes Done w/ Acute PA measure.: Yes - CHF REINIER/ARB ordered at discharge?: No Reason REINIER/ARB not ordered?: Hypotension Documented LVEF (%): 50 Code Visit Inpatient E AND M: [id number] Disch Hosp 04/03/18 1420 <Electronically signed by Shania Hernandez > Date Shania Hernandez Cosigner Signature (if applicable): Date CC: Shania Hernandez; Avery Fischer DO Signed BEDSIDE GLUCOSE Collected: 04/03/2018 Status: F Source: [place] 11:24 AM [facility] REPOSITORY TYPE CODE TESTS RESULT OUT OF RANGE REFERENCE UNITS LAB L501.080 70-110 mg/dL Normal BEDSIDE GLU 105 Result Comment: MANAGEMENT OF PATIENT CARE PER NURSING PROTOCOL Performed By: #### L501.080 #### [facility] Point of Care [address] [place] [address] BEDSIDE GLUCOSE Collected: 04/03/2018 Status: F Source: [place] 6:54 AM [facility] REPOSITORY TYPE CODE TESTS RESULT OUT OF RANGE REFERENCE UNITS LAB L501.080 70-110 mg/dL Normal BEDSIDE GLU 96 Result Comment: Insulin Given Dextrose 50 Given MANAGEMENT OF PATIENT CARE PER NURSING PROTOCOL Performed By: #### L501.080 #### [facility] Point of Care [address] [place] [address] PROTHROMBIN TIME W/INR Collected: 04/03/2018 Status: F Source: [place] 5:45 AM [facility] REPOSITORY TYPE CODE TESTS RESULT OUT OF RANGE REFERENCE UNITS LAB L300.4150 11.7-14.9 SECONDS High PROTIME 15.3 LAB L300.4200 Normal INR 1.2 Performed By: #### L300.3900, L300.4310 #### [facility] [address] [facility] [address] PARTIAL THROMBOPLAST Collected: 04/03/2018 Status: F Source: DAVIE TIME 5:45 AM [facility] REPOSITORY TYPE CODE TESTS RESULT OUT OF RANGE REFERENCE UNITS LAB L300.4310 24.1-36.2 Seconds Normal PTT 34.7 Performed By: #### L300.3900, L300.4310 #### [facility] [address] [place], [address] BASIC METABOLIC Collected: 04/03/2018 Status: F Source: DAVIE PROFILE (BMP) 5:45 AM [facility] REPOSITORY TYPE CODE TESTS RESULT OUT OF RANGE REFERENCE UNITS LAB L501.0100 74-106 mg/dL Normal GLU 99 Result Comment: Please note revised GLUCOSE reference range effective 2017. LAB L501.1000 7-18 mg/dL High BUN 30 LAB L501.1100 0.70-1.30 mg/dL Normal CREAT,SERUM 0.90 Result Comment: The validity of the calculated GFR AND GFRAA in patients over 70 years has not been determined. Clinical correlation is essential. LAB L501.1110 >60 mL/min Normal EST GFR 93 Result Comment: Non- GFR Calc LAB L501.1115 >60 mL/min Normal EST GFR - AA 112 Result Comment: GFR Calc LAB L501.1255 ml/min Normal Estimated CRCL 94.63 LAB L501.1300 10-20 RATIO High BUN/CRE 33.4 LAB L501.2200 8.5-10 mg/dL Low .1 CA 8.2 LAB L501.5300 136-14 mmol/L Normal 5 NA 141 LAB L501.5600 3.5-5. mmol/L Normal 1 K 3.7 LAB L501.5900 98-107 mmol/L Normal CL 107 LAB L501.6100 21.0-3 mmol/L Normal 2.0 CO2 25.0 LAB L501.6200 5-15 Normal GAP 9 Performed By: #### L500.2500 #### [facility] [address] [facility] [place], [address] CBC W/DIFF, AUTOMATED Collected: 04/03/2018 Status: C Source: [place] 5:45 AM [facility] REPOSITORY TYPE CODE TESTS RESULT OUT OF RANGE REFERENCE UNITS LAB L100.1000 4.4-11.0 K/mm3 High WBC 14.1 LAB L100.1200 4.6-6.2 M/mm3 Low RBC 3.66 LAB L100.1300 13.0-16.5 g/dl Low HGB 11.5 LAB L100.1400 40-54 % Low HCT 35.9 LAB L100.1500 80-94 fL High MCV 98.1 LAB L100.1600 27.0-32.0 pg Normal MCH 31.4 LAB L100.1700 32-36 g/gl Normal MCHC 32.0 LAB L100.1810 11.6-14.6 % Normal RDW CV 13.7 LAB L100.1820 35.1-43.9 fl High RDW SD 48.7 LAB L100.1900 150-450 K/mm3 Normal PLT 254 LAB L100.2000 6.2-12.0 fl Normal MPV 9.9 LAB L100.2100 47-70 % High NEUT% 76.1 LAB L100.2200 19-41 % Low LY% 9.1 LAB L100.2300 0-10 % High MONO% 11.3 LAB L100.2400 0-5 % Normal EO% 2.6 LAB L100.2500 0-1 % Normal BASO% 0.2 LAB L100.2550 0.0-0.9 % Normal IM GRAN % 0.700 Result Comment: IG% - Immature Granulocytes (promyelocytes, myelocytes and metamyelocytes) > 1% indicates that a LEFT SHIFT is Present. LAB L100.2620 2.0-7.7 X10 3/uL High Absolute Neut 10.7 LAB L100.2720 0.83-4.51 X10 3/ul Normal Absolute Lymph 1.29 LAB L100.4500 Normal SMEAR COMMENT SCANNED Result Comment: SLIGHT MONOCYTOSIS NOTED LAB L100.9900 Normal Reviewed PATH REV Result Comment: Neutrophilic leukocytosis. Macrocytic anemia. Clinical correlation necessary. Greyson Nguyen M.D. 04/03/18 AMENDED REPORT 04/03/18 1303 PATH REV previously reported as: February alem Performed By: #### L100.0100 #### [facility] [address] [place], [place], [address] URINALYSIS, ROUTINE Collected: 04/03/2018 Status: F Source: [place] (DIPSTICK) 2:25 AM [facility] REPOSITORY Order Comment: How was Urine Obtained? MAMMOGRAPHY TECHNICIAN TO SPECIFY TYPE CODE TESTS RESULT OUT OF RANGE REFERENCE UNITS LAB L400.3000 Yellow COLOR Normal Yellow LAB L400.3050 Clear Normal CLARITY Clear LAB L400.3200 Normal mg/dl Normal GLUCOSE, UR Normal LAB L400.3300 Negative mg/dL Normal BILIRUBIN URINE Negative LAB L400.3400 Negative mg/dl High 5 KETONE UR LAB L400.3465 1.002-1.030 Normal SP.GR. DIPSTX 1.015 LAB L400.3550 5.0 - 8.0 pH UR Normal 6.0 LAB L400.3600 Negative mg/dl High PROT 15 DIPSTX LAB L400.3700 Normal mg/dl Normal UROBILI Normal LAB L400.3750 Negative Normal NITRITE UR Negative LAB L400.3780 Negative /ul Normal OCCULT BLOOD-UR Negative LAB L400.3800 Negative /ul High LEUK 25 ESTERASE Performed By: #### L400.2010 #### [facility] [address] [place], [address] XA-CARDIAC IMPORT Observed: 04/03/2018 Status: F Source: [place] 12:00 AM [facility] REPOSITORY Images were obtained outside of [facility] [id number] Observed: 04/03/2018 Status: COMPLETED Source: [place] 12:00 AM [facility] REPOSITORY Patient:Rick George Jr. MRN: <[id number]> Height:5' 10(1.778 m) Weight:195 lb 1.6 oz (88.497 kg) Outpatient Medications as of 04/12/18: ammonium lactate (LAC-HYDRIN) 12 % cream gabapentin (NEURONTIN) 800 mg tablet Magnesium 250 mg tab celecoxib (CELEBREX) 200 mg capsule Tadalafil (CIALIS) 20 mg tab(s) blood sugar diagnostic (FREESTYLE LITE STRIPS) test strip BASAGLAR KWIKPEN U-100 INSULIN 100 unit/mL (3 mL) inpn ketoconazole (NIZORAL) 2 % cream Cholecalciferol, Vitamin D3, 5,000 unit cap lisinopril (ZESTRIL,PRINIVIL) 30 mg tablet amLODIPine (NORVASC) 5 mg tablet Urea 10 % lotion cyanocobalamin 1,000 mcg/mL soln Biotin 1 mg tab aspirin 325 mg tablet diflorasone 0.05 % cream HUMALOG KWIKPEN 100 unit/mL inpn desonide (TRIDESILON) 0.05 % cream [id number]-algal oil (METANX, ALGAL OIL,) 3 mg-35 mg-2 mg -90.314 mg cap Cetirizine 10 mg cap insulin needles, DISPOSABLE, (BD INSULIN PEN NEEDLE UF) 31 gauge x 5/16 ndle HUMALOG KWIKPEN 100 unit/mL inpn FREESTYLE LANCETS 28 gauge misc nortriptyline (PAMELOR) 50 mg capsule tiZANidine (ZANAFLEX) 4 mg tablet Blood Pressure Cuff - Home Use ketoconazole (NIZORAL) 2 % shampoo Ammonium,Pot.and Sodium Lactates (AMLACTIN) crea baclofen (LIORESAL) 20 mg tablet Alcohol Swabs (ALCOHOL PREP PADS) padm Blood-Glucose Meter (FREESTYLE LITE METER) monitoring kit Admission/Clinic Administered Medications as of 04/12/18: insulin lispro injection (rapid acting) (HumaLOG) insulin lispro injection (rapid acting) (HumaLOG) insulin glargine 5 Units pen (long acting) (LANTUS SOLOSTAR, BASAGLAR KWIKPEN) Chlorhexidine Gluconate 0.12 % 15 mL (PERIDEX) 0.9% NaCl 3-5 mL benzonatate 100 mg cap(s) (TESSALON PERLE) traMADol 50 mg tab(s) (ULTRAM) gabapentin 800 mg tab(s) (NEURONTIN) cetirizine 10 mg tab(s) (ZyrTEC) vancomycin 125 mg oral liquid (VANCOCIN) nortriptyline 50 mg cap(s) (PAMELOR) tiZANidine 4 mg tab(s) (ZANAFLEX) dextrose 40 % 15 g glucagon 1 mg injection (GLUCAGEN) dextrose 50% in water 25 mL syringe carvedilol 6.25 mg tab(s) (COREG) aspirin 81 mg chewable tab(s) rosuvastatin 20 mg tab(s) (CRESTOR) Problem List: Seasonal allergies [J30.2] Diabetes mellitus (HCC) [E11.9] Diabetes with neurologic complications (HCC) [E11.49] Hyperlipidemia [E78.5] Diabetes type 2, controlled (HCC) [E11.9] Lower back pain [M54.5] Hearing loss [H91.90] Dizziness [R42] Other musculoskeletal symptoms referable to limbs(729.89) [R29.898] Hereditary and idiopathic peripheral neuropathy [G60.9] Vitamin B12 deficiency [E53.8] PAD (peripheral artery disease) ([facility]) [I73.9] Small vessel disease [I99.9] DM (diabetes mellitus), type 2 with neurological complications ([facility]) [E11.49] Other vitreous opacities - Both Eyes [H43.399] CVA (cerebral vascular accident) ([facility]) [I63.9] Type 2 diabetes, controlled, with neuropathy ([facility]) [E11.40] Type 2 diabetes mellitus with diabetic polyneuropathy (HCC) [E11.42] After-cataract obscuring vision [H26.499] Pseudophakia of both eyes [Z96.1] Hyperopia [H52.00] Astigmatism, regular [H52.229] Vitreous floaters of both eyes [H43.393] Meibomian gland dysfunction (MGD) of upper and lower lids of both eyes [H02.89] NSTEMI (non-ST elevated myocardial infarction) ([facility]) [I21.4] Coronary artery disease involving [place] coronary artery of [place] heart with unstable angina pectoris ([facility]) [I25.110] C. difficile colitis [A04.72] Preop testing [Z01.818] Nicotine use disorder, F17.2 [F17.200] Allergies: Lipitor [Atorvastatin Calcium] Metformin Date Verified: 04/12/18 Lab Values Lab Value Units Date High Low POTA* 5.0 mmol/L 04/12/2018 5.1 3.7 ESTHER* 36.8 % 04/12/2018 51.0 39.0 Progress Notes (): Pamela Dumont RN, RN 04/04/2018 12:44 AM Signed Nursing Progress Note Patient Name: Rick [facility] Jr[facility]: [facility] room [facility], report taken from LIN Gonzalez @[facility], in stable condition. Actions taken: Pt oriented to room, call light function, my safety plan initiated. Unable to play falls video for pt, educated completed over risk for falls and the need to call before getting up. Skin check done with Esequiel ALCARAZ. Wound from stepping on nail noted on right heel. Will continue to monitor This note was completed by: ILN Dumont MD 04/04/2018 3:06 PM Signed [facility] HISTORY AND PHYSICAL (Template ID [id number]) Rick George Jr. [id number] PRIMARY SERVICE: Cardiovascular Medicine: Clinical Cardiology DATE OF ADMISSION: 04/03/2018 CHIEF COMPLAINT NSTEMI w MVDz here for PCI w rotoblater vs CABG HISTORY OF PRESENT ILLNESS Rick George Jr. is a 57 year old male w PMH of DM2 c/b neuropathy, HTN, HLD, PAD/PVD, and CVA who presented for evaluation for PCI vs CABG after an NSTEMI on 04/01/18. Pt presented to [facility] on 04/01/18 w a 7d hx of increasing cough and SOB, CP wo radiation and diarrhea. CT PE wo PE but b/l effusions and groundglass opacities. EKG showed NSR, age unclear septal infarct, and non -specific STANDT wave abnmlities. Tn 6, BNP 600. Serial EKGs and Kylah showed no STEMI. Cdiff was pos and pt started on Flagyl. Pt was treated as likely HFpEF given SOB and gently diuresed, loaded w ASA and Brillinta. BB and ACEI were held due to low BP. LHC on 04/03/18 w LMT 25%, Prox LAD 85%, Dist LAD 75%, Prox LCX 75%, Mid LCX 85%, Ramus diffuse dz, and RCA 95%. Pt was TFd to [facility] for PCI w rotor vs CABG. PAST MEDICAL HISTORY PAST MEDICAL HISTORY Diagnosis Date - Cataract b/l, eye exam 05/29/13 - CTS (carpal tunnel syndrome) 10/2013 b/l, chronic, Dr. 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 Mazin Hinojosa Neuro, likely from DM and Vitamin B12 defic - Stroke ([facility]) 10/01/13 - Ulnar neuropathy 10/2013 b/l, chronic, Dr. Mazin Hinojosa EMG - Vitamin D deficiency 11/2013 PAST SURGICAL HISTORY Procedure Laterality Date - DISCISSION,2ND CATARACT,LASER 06/07/2013 Yag Capsulotomy-Right eye - LASER, SECONDARY CATARACT 2006 OU - PAST SURGICAL HISTORY OF 02/2013 Amputation Right Gt toe FAMILY HISTORY FAMILY HISTORY Problem Relation Age of Onset - Diabetes Mother - Heart Father SOCIAL HISTORY Social History Substance Use Topics - Smoking status: Never Smoker - Smokeless tobacco: Former User Types: Chew - Alcohol use 12.0 oz/week 8 Cans of Beer (12oz) per week Comment: 1-2 per day HOME MEDICATIONS ammonium lactate (LAC-HYDRIN) 12 % cream APPLY CREAM TOPICALLY TO AFFECTED AREA ONCE DAILY gabapentin (NEURONTIN) 800 mg tablet Take 800 mg by mouth three times daily. Magnesium 250 mg tab Take 1 tablet by mouth once daily. celecoxib (CELEBREX) 200 mg capsule Take 1 capsule by mouth once daily. Tadalafil (CIALIS) 20 mg tab(s) Take 1 tablet by mouth once daily. blood sugar diagnostic (FREESTYLE LITE STRIPS) test strip Check blood glucose three times daily. Dx: E11.42, Insulin dependent BASAGLAR KWIKPEN U-100 INSULIN 100 unit/mL (3 mL) inpn INJECT 20 UNITS SUBCUTANEOUSLY ONCE DAILY AT BEDTIME ketoconazole (NIZORAL) 2 % cream APPLY TO AFFECTED AREA ON FACE ONCE DAILY Cholecalciferol, Vitamin D3, 5,000 unit cap TAKE ONE CAPSULE BY MOUTH ONCE DAILY lisinopril (ZESTRIL,PRINIVIL) 30 mg tablet Take 1 tablet by mouth once daily. amLODIPine (NORVASC) 5 mg tablet Take 1 tablet by mouth once daily. cyanocobalamin 1,000 mcg/mL soln Inject 1 mL intramuscularly once every month. Biotin 1 mg tab Take 1 tablet by mouth once daily. aspirin 325 mg tablet Take 1 tablet by mouth once daily. diflorasone 0.05 % cream APPLY CREAM TO AFFECTED AREA TWICE DAILY NEEDED FOR RASH HUMALOG KWIKPEN 100 unit/mL inpn INJECT 12 TO 20 UNITS SUBCUTANEOUSLY WITH MEALS DIRECTED desonide (TRIDESILON) 0.05 % cream APPLY TO AFFECTED AREA ONCE DAILY NEEDED FOR FACE RASH [id number]-algal oil (METANX, ALGAL OIL,) 3 mg-35 mg-2 mg -90.314 mg cap Take 1 capsule by mouth once daily. Cetirizine 10 mg cap Take 1 capsule by mouth once daily. insulin needles, DISPOSABLE, (BD INSULIN PEN NEEDLE UF) 31 gauge x 5/16 ndle USE TO GIVE INSULIN INJECTIONS 4 TIMES DAILY HUMALOG KWIKPEN 100 unit/mL inpn INJECT 12 TO 20 UNITS SUBCUTANEOUSLY WITH MEALS DIRECTED FREESTYLE LANCETS 28 gauge misc USE DIRECTED 3 TO 4 TIMES DAILY TO TEST BLOOD GLUCOSE nortriptyline (PAMELOR) 50 mg capsule TAKE ONE CAPSULE BY MOUTH ONCE DAILY AT BEDTIME tiZANidine (ZANAFLEX) 4 mg tablet Take 1 tablet by mouth every 6 hours as needed. Blood Pressure Cuff - Home Use BLOOD PRESSURE CUFF FOR HOME USE. DX: LABILE BLOOD PRESSURE ketoconazole (NIZORAL) 2 % shampoo Apply 1 application to affected area once daily as needed (scalp). Ammonium,Pot.and Sodium Lactates (AMLACTIN) crea Apply 1 Tube to affected area once daily. baclofen (LIORESAL) 20 mg tablet Alcohol Swabs (ALCOHOL PREP PADS) padm Apply 1 application to affected area four times daily. Blood-Glucose Meter (FREESTYLE LITE METER) monitoring kit Freestyle LITE Meter Kit - Dx: Type 2 DM - Controlled E11.9 Urea 10 % lotion Apply 1 application to affected area three times daily. For feet INPATIENT MEDICATIONS Current hospital medications: 0.9% NaCl 3-5 mL 3-5 mL INTRAVENOUS q 12 H benzonatate 100 mg cap(s) (TESSALON PERLE) 100 mg ORAL TID traMADol 50 mg tab(s) (ULTRAM) 50 mg ORAL q 6 H PRN gabapentin 800 mg tab(s) (NEURONTIN) 800 mg ORAL TID Cetirizine cap 10 mg 1 capsule ORAL DAILY vancomycin 125 mg oral liquid (VANCOCIN) 125 mg ORAL QID nortriptyline 50 mg cap(s) (PAMELOR) 50 mg ORAL AT BEDTIME Biotin tab 1 mg 1 tablet ORAL DAILY tiZANidine 4 mg tab(s) (ZANAFLEX) 4 mg ORAL TID PRN dextrose 40 % 15 g 15 g ORAL PRN glucagon 1 mg injection (GLUCAGEN) 1 mg INTRAMUSCULAR PRN dextrose 50% in water 25 mL syringe 12.5 g INTRAVENOUS PRN insulin lispro injection (rapid acting) (HumaLOG) SUBCUTANEOUS AT BEDTIME insulin lispro injection (rapid acting) (HumaLOG) SUBCUTANEOUS w MEALS carvedilol 6.25 mg tab(s) (COREG) 6.25 mg ORAL BID w MEALS aspirin 81 mg chewable tab(s) 81 mg ORAL DAILY ALLERGIES ALLERGIES Allergen Reactions - Lipitor [Atorvastat* Contraindication-Medical Surgical Elevated LFTs and elevated CK level - Metformin Diarrhea REVIEW OF SYSTEMS Constitutional: No weight loss, malaise or fevers. HEENT: Negative for frequent or significant headaches, No changes in hearing or vision, no nose bleeds or other nasal problems Respiratory: Positive for productive cough Cardiovascular: Negative for leg swelling and palpitations and Positive for chest pain at rest and claudication Gastrointestinal: Negative for abdominal discomfort, blood in stools or black stools or change in bowel habits + diarrhea Genitourinary: No history of dysuria, frequency, or incontinence and No difficulty urination, nocturia >1 times per night or hematuria Endocrine: Negative for cold or heat intolerance, polyuria, polydipsia and goiter Hematologic: Negative for prolonged bleeding, bruising easily or swollen nodes Neurologic: No history or headaches, syncope, paralysis, seizures or tremors Integumentary: Negative for lesions, rash, and itching. PHYSICAL EXAM BP 132/65 Pulse 99 Temp 36.9 ?C (98.5 ?F) (Oral) Resp 16 Ht 177.8 cm (5' 10) Wt 92 kg (202 lb 12.8 oz) SpO2 96% BMI 29.10 kg/m? General Appearance: Well developed, Well nourished , Obese and No acute distress HEENT: PERRLA, EOM's intact, Sclera anicteric, Fair dentition and JVD - no Lungs: Crackles b/l, cough present Heart: Regular rate AND rhythm, nml S1, S2, no m/r/g Abdomen: Soft, Non-tender and Bowel sounds present Skin: Warm and Dry Musculoskeletal: No deformities and No joint deformities Neurologic/Psychiatric: Oriented to time, place AND person , No gross focal neurologic deficits but some numbness in feet b/l DATA Laboratory: Reviewed Recent Labs 04/04/18 0008 INR 1.0 Cholesterol, Total (mg/dL) Date Value 11/01/2017 154 HDL Cholesterol (mg/dL) Date Value 11/01/2017 23 LDL Cholesterol (mg/dL) Date Value 11/01/2017 107 Triglyceride (mg/dL) Date Value 11/01/2017 122 Hemoglobin A1C (%) Date Value 01/25/2018 6.1 EK04/03/2018 NSR Septal infarct, age undetermined Nonspec ST T wave abnml, consider lateral ischemia Chest Radiograph: Pending Echocardiogram: Pending Stress Testing: NA Cardiac Catheterization: 04/03/18 [facility] done at [facility], uploaded into [facility] Epic LMT 25% LAD Prox 85%, Dist 75% LCX Prox 75%, Dist 85% RCA 95% Other Radiology: 04/01/18 done at [facility] CTA Chest - no PE, small b/l effusions, some pulm congestion w ground glass opacities ASSESSMENT AND PLAN Rick George Jr. is a 57 year old male w PMH of DM2 c/b neuropathy, HTN, HLD, PAD/PVD, and CVA who presented for evaluation for PCI vs CABG after an NSTEMI on 04/01/18. Pt has multivessel dz and DM2 so will likely go for CABG, however patient has at least one active infection, Cdiff and possible PNA. Will start CAD Rxs, prep for CABG, and treat/work up infections. Active Hospital Problems Diagnosis - NSTEMI (non-ST elevated myocardial infarction) (HCC) - Coronary artery disease involving [place] coronary artery of [place] heart with unstable angina pectoris (HCC) Neuro #Peripheral Neuropathy 2/2 DM2 Mild numbness in feet b/l Plan Cont Gabapentin CV #NSTEMI in s/o 3VDz Tn peak 6, BNP ~600 Plan Plan for CABG, workup Review CD with Staff for possible repeat [facility] Echo Carotid US for CABG prep See plan for CAD #CAD LMT 25% LAD Prox 85%, Dist 75% LCX Prox 75%, Dist 85% RCA 95% Plan ASA Hold Brillinta for possible upcoming CABG No heparin gtt given last CP on Tuesday, no current CP Start Coreg If room on BP, add lisinopril tomorrow Check lipid panel, TSH, A1c Lipoprotein A given low total Chol and 3VDz Add low dose statin if possible given hx of CK elevation #HTN Plan Cont Coreg Add lisinopril if BP room Pulmonary #Pneumonia? DDx is PNA vs. Acute CHF 2/2 NSTEMI Plan CXR 2 view to look for consolidation, this does not r/o atypicals Blood cx Histo and Strep Ag Tessalon pearls Will avoid treatment for now given likelihood of CHF and lack of consolidation on CXR frontal Will reassess if no improvement with diuresis and/or continued/worsening s/s GI #Cdiff Pos test at OSH, pt received Flagyl Some improvement in frequency of diarrhea on Flagyl Now with LUQ pain/ttp Plan Vancomycin day #1 given, tx length 10 days KUB for LUQ quadrant pain in s/o Cdiff Endocrine #DM2 A1c ~6, c/b neuropathy Plan SSI Insulin Diet Hrt Healthy 2gNa DVT ppx - heparin sq GI ppx - not indicated Case to be discussed with staff Blanco Paul MD Pager [phone] (please see below for after hours communication) 04/04/2018 1:09 AM For communication after 5 pm on weekdays and after 12 pm on weekends, please page the following: - Clinical Cardiology patients on all floors: page [phone] - Other Cardiology patients on J5 and J6: page [phone] - Other Cardiology patients on J7 and J8: page [phone] [facility] STAFF PHYSICIAN NOTE OF PERSONAL INVOLVEMENT IN CARE IMPRESSION: Patient is a 57 year old male with: #Coronary artery disease status post NSTEMI and found to have severe multivessel disease (I have reviewed his cardiac catheterization and have uploaded to [employer]) #PAD #Diabetes mellitus #Prior CVA #Mixed hyperlipidemia #Current clostridium difficile infection PLAN: I have reviewed his cardiac catheterization which is now uploaded on [employer]. Since he has severe multivessel disease including proximal LAD disease along with diabetes, I believe he would be better served with CABG. So we will continue treatment of his c.diff first and then discuss his candidacy for surgery with the CTS team. If surgery is not an option then we can consider multivessel PCI. I discussed with him both of these options and he is in agreement with that plan. I have reviewed the documentation obtained and documented by the Resident and have reviewed and updated the problem list as appropriate. I have personally performed a face to face assessment of the patient and have personally participated in the rubi components. I have discussed the case and management of the patient's care. STAFF PHYSICIAN: Van Mcguire MD DATE OF SERVICE: April 04, 2018 TIME OF SERVICE: 3:02 PM Previous Version Fabiola Anders RN, RN 04/04/2018 10:39 AM Signed CARE MANAGEMENT: ASSESSMENT AND DISCHARGE PLAN SERVICE DATE: 04/04/2018 SERVICE TIME: 09:10 AM PRIMARY CARE PHYSICIAN: Avery Escalante DO *Verified this is PCP ADMISSION STATUS: Inpatient Needs Prior to Discharge: To Be Determined MEDICAL: Patient/Provider Relations Representative Stated Goals: To improve my functional status To return home to life as it was Health Insurance: [employer] Health Issues Impacting Discharge Plan: PMH per HANDP: DM2 c/b neuropathy, HTN, HLD, PAD/PVD, and CVA. Currently admitted for PCI vs. CABG after NSTEMI 04/01/18. Last Admission Date: Previous admit date: 02/16/2013 Is this Within the Past 30 days? No Advance Directive: Current Advance Directive: None Green Building Engineer Assisted with AD Completion: Yes Action: Education Provided;Other: See Comment (Education provided on [place] Hierarchy of Decision Making) Copy of AD left at bedside for patient, explained process for completing these if he chooses to complete. Health Literacy: 1. How often do you need to have someone help you when you read instructions, pamphlets, or other written material from your doctor or pharmacy? Never - 1 2. How confident are you filling out medical forms by yourself? Extremely - 1 If Patient scores > 3 on either question, the following interventions were put into place: Patient did not score > 3 FUNCTIONAL AND COGNITIVE/BEHAVIORAL PRIOR TO ADMISSION: Baseline Mental Status: Alert AND Oriented, Person, Place , Time and Situation Functional Status: Independent Does Patient Currently Receive Any Community Services or Home Care? None Equipment Prior to Admission: None Has the Patient Been in a Assisted Facility in the Past 30 days? No SOCIAL: Living Arrangement: Home Lives With: Spouse and Daughter (27 y/o) Financial Resources: Employed: [employer] with his father Primary Contact: Extended Emergency Contact Information Primary Emergency Contact: Radha Yañez Relation: Secondary Emergency Contact: DorisBrent Relation: Son Supportive: Yes Other Important Patient Contacts: None Caregiver Assessment: Caregiver is ready, willing and able to meet the patient's needs as recommended by the inter-professional team? to be determined Patient's transition needs and plan for meeting these needs: Patient lives with his who he reports can assist as needed after discharge. CM department will follow for evolving discharge needs. Does the patient have an acute stroke diagnosis, or has the patient had a stroke during this admission? No Medication Adherence: I am convinced of the importance of my prescription medication: Agree completely - 0 I worry that my prescription medication will do more harm than good to me Disagree completely - 0 I feel financially burdened by my [id number] expenses for my prescription medication: Disagree completely - 0 Patient is categorized as low risk < 2 Are you interested in bedside delivery of your medications? Yes Food Concerns: In the Last Month, Have You had Trouble Getting Food? No trouble getting food During the Last Month, Have You Worried Whether Your Food Would Run Out Before You Had Enough Money to Buy More? No Is the Patient Psychosocially Complex? No ASSESSMENT AND PLAN: Medical Needs: 2 or more chronic diseases Psychosocial Needs: None FREEDOM OF CHOICE EXPLAINED: N/A - no post acute skilled needs currently identified to provide FOC regarding. POTENTIAL TRANSITION PLANS Home To Be Determined Patient is a 57 year old male who was transferred from [facility] to [facility] on 04/03/18. Originally admitted 04/01/18, transferred for evaluation for PCI vs. CABG after NSTEMI 04/01/18. He reports being independent and living with his and 27 y/o daughter in [place], [place]. 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 Currently on precautions for c diff. Patient is on RA. Will follow and plan for discharge accordingly. SIGNATURE: Fabiola Anders RN PATIENT NAME: Rick George Jr. DATE: April 04, 2018 TIME: 9:17 AM PAGER/CONTACT #: [phone] Alexandra Jordan RN RN 04/04/2018 10:39 AM Signed ISOLATION NOTE Admission Date: 04/03/2018 Type of Isolation Recommended: Contact Precautions - Soap and Water (Brown Isolation Sign) Indication: Clostridium difficile Date Isolation Initiated: 04/04/2018 Anticipated Duration of Isolation: Until patient completes 10-14 days of antibiotic therapy for C. difficile and no longer symptomatic Type and Date of Positive Test(s): patient tested positive for C.diff at outside hospital. SIGNATURE: Alexandra Jordan RN PATIENT NAME: Rick George Jr. DATE: April 04, 2018 TIME: 10:37 AM PAGER/CONTACT #: [phone] Infection Prevention after hours/weekend pager: [phone] Mercedes Montalvo RN LANDSCAPE CONTRACTOR.TRACK LABORER 04/04/2018 1:07 PM Signed CONSULT HISTORY and PHYSICAL CARDIOTHORACIC SURGERY Consulting Service: Cardiothoracic Surgery Requesting Provider: [facility] Key Holder, Van Mcguire MD. Opinion/advice regarding: Pre-Op Open Heart Surgery Cardiothoracic Physician: Sammy Zhu M.D. NAME: Rick George Jr. HEIGHT: 177.8 cm WEIGHT: 91 kg Intended Procedure: Isolated CABG REDO: No STS SCORE: Has this patient been previously evaluated for Open Heart Surgery for this condition? Yes, but refered to [facility] for surgical managment HPI: (4) This is a 57 year old male who presents in consultation for an opinion regarding treatment options for coronary artery disease. He is currently symptomatic presented to the local hospital on 04/01 with shortness of breath cough, back pain and diarrhea. Cardiac enzymes were elevated prompted further cardiac work-up. Per note loaded with ASA and Brilinta, subsequently had LHC on 04/03 showed LMT 25%, Prox LAD 85%, Dist LAD 75%, Prox LCX 75%, Mid LCX 85%, Ramus diffuse dz, and RCA 95%. ? Since transfer, patient reports he still has non productive cough, never had chest pain or pressure. He is diagnosed with C-diff in the stool today 04/04, started on antibiotics and is on isolation. . 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 He had prior left sided stroke with left arm weakness residual, HTN, DM complicated by neuropathy. 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 Mazin Hinojosa Neuro, likely from DM and Vitamin B12 defic - Stroke (HCC) 10/01/13 - Ulnar neuropathy 10/2013 b/l, chronic, Dr. Mazin Hinojosa EMG - Vitamin D deficiency 11/2013 PAST SURGICAL HISTORY: PAST SURGICAL HISTORY Procedure Laterality Date - DISCISSION,2ND CATARACT,LASER 06/07/2013 Yag Capsulotomy-Right eye - LASER, SECONDARY CATARACT 2006 OU - PAST SURGICAL HISTORY OF 02/2013 Amputation Right Gt toe FAMILY HISTORY: FAMILY HISTORY Problem Relation Age of Onset - Diabetes Mother - Heart Father FAMILY HISTORY OF CAD: Yes SOCIAL HISTORY: Social History Substance Use Topics - Smoking status: Never Smoker - Smokeless tobacco: Former User Types: Chew - Alcohol use 12.0 oz/week 8 Cans of Beer (12oz) per week Comment: 1-2 per day SOCIAL HISTORY OF IVDU: No MEDICATIONS: Prior to Admission Medications: ammonium lactate (LAC-HYDRIN) 12 % cream APPLY CREAM TOPICALLY TO AFFECTED AREA ONCE DAILY gabapentin (NEURONTIN) 800 mg tablet Take 800 mg by mouth three times daily. Magnesium 250 mg tab Take 1 tablet by mouth once daily. celecoxib (CELEBREX) 200 mg capsule Take 1 capsule by mouth once daily. Tadalafil (CIALIS) 20 mg tab(s) Take 1 tablet by mouth once daily. blood sugar diagnostic (FREESTYLE LITE STRIPS) test strip Check blood glucose three times daily. Dx: E11.42, Insulin dependent BASAGLAR KWIKPEN U-100 INSULIN 100 unit/mL (3 mL) inpn INJECT 20 UNITS SUBCUTANEOUSLY ONCE DAILY AT BEDTIME ketoconazole (NIZORAL) 2 % cream APPLY TO AFFECTED AREA ON FACE ONCE DAILY Cholecalciferol, Vitamin D3, 5,000 unit cap TAKE ONE CAPSULE BY MOUTH ONCE DAILY lisinopril (ZESTRIL,PRINIVIL) 30 mg tablet Take 1 tablet by mouth once daily. amLODIPine (NORVASC) 5 mg tablet Take 1 tablet by mouth once daily. cyanocobalamin 1,000 mcg/mL soln Inject 1 mL intramuscularly once every month. Biotin 1 mg tab Take 1 tablet by mouth once daily. aspirin 325 mg tablet Take 1 tablet by mouth once daily. diflorasone 0.05 % cream APPLY CREAM TO AFFECTED AREA TWICE DAILY NEEDED FOR RASH HUMALOG KWIKPEN 100 unit/mL inpn INJECT 12 TO 20 UNITS SUBCUTANEOUSLY WITH MEALS DIRECTED desonide (TRIDESILON) 0.05 % cream APPLY TO AFFECTED AREA ONCE DAILY NEEDED FOR FACE RASH [id number]-algal oil (METANX, ALGAL OIL,) 3 mg-35 mg-2 mg -90.314 mg cap Take 1 capsule by mouth once daily. Cetirizine 10 mg cap Take 1 capsule by mouth once daily. insulin needles, DISPOSABLE, (BD INSULIN PEN NEEDLE UF) 31 gauge x 5/16 ndle USE TO GIVE INSULIN INJECTIONS 4 TIMES DAILY HUMALOG KWIKPEN 100 unit/mL inpn INJECT 12 TO 20 UNITS SUBCUTANEOUSLY WITH MEALS DIRECTED FREESTYLE LANCETS 28 gauge misc USE DIRECTED 3 TO 4 TIMES DAILY TO TEST BLOOD GLUCOSE nortriptyline (PAMELOR) 50 mg capsule TAKE ONE CAPSULE BY MOUTH ONCE DAILY AT BEDTIME tiZANidine (ZANAFLEX) 4 mg tablet Take 1 tablet by mouth every 6 hours as needed. Blood Pressure Cuff - Home Use BLOOD PRESSURE CUFF FOR HOME USE. DX: LABILE BLOOD PRESSURE ketoconazole (NIZORAL) 2 % shampoo Apply 1 application to affected area once daily as needed (scalp). Ammonium,Pot.and Sodium Lactates (AMLACTIN) crea Apply 1 Tube to affected area once daily. baclofen (LIORESAL) 20 mg tablet Alcohol Swabs (ALCOHOL PREP PADS) padm Apply 1 application to affected area four times daily. Blood-Glucose Meter (FREESTYLE LITE METER) monitoring kit Freestyle LITE Meter Kit - Dx: Type 2 DM - Controlled E11.9 Urea 10 % lotion Apply 1 application to affected area three times daily. For feet Current hospital medications: 0.9% NaCl 3-5 mL 3-5 mL INTRAVENOUS q 12 H benzonatate 100 mg cap(s) (TESSALON PERLE) 100 mg ORAL TID traMADol 50 mg tab(s) (ULTRAM) 50 mg ORAL q 6 H PRN gabapentin 800 mg tab(s) (NEURONTIN) 800 mg ORAL TID cetirizine 10 mg tab(s) (ZyrTEC) 10 mg ORAL DAILY vancomycin 125 mg oral liquid (VANCOCIN) 125 mg ORAL QID nortriptyline 50 mg cap(s) (PAMELOR) 50 mg ORAL AT BEDTIME tiZANidine 4 mg tab(s) (ZANAFLEX) 4 mg ORAL TID PRN dextrose 40 % 15 g 15 g ORAL PRN glucagon 1 mg injection (GLUCAGEN) 1 mg INTRAMUSCULAR PRN dextrose 50% in water 25 mL syringe 12.5 g INTRAVENOUS PRN carvedilol 6.25 mg tab(s) (COREG) 6.25 mg ORAL BID w MEALS aspirin 81 mg chewable tab(s) 81 mg ORAL DAILY rosuvastatin 20 mg tab(s) (CRESTOR) 20 mg ORAL AT BEDTIME insulin lispro injection (rapid acting) (HumaLOG) SUBCUTANEOUS q 6 H heparin 5,000 Units injection 5,000 Units SUBCUTANEOUS q 12 H ALLERGIES: ALLERGIES Allergen Reactions - Lipitor [Atorvastat* Contraindication-Medical Surgical Elevated LFTs and elevated CK level - Metformin Diarrhea COMPLETE REVIEW OF SYSTEMS: (10) Review Of Systems GENERAL:Negative for malaise, significant weight loss and fever HEENT:Negative for frequent or significant headaches, significant changes in vision or vision problems, significant ear problems or hearing loss NECK:Negative for lumps, goiter, pain and significant neck swelling RESPIRATORY: see HPI CARDIOVASCULAR: Negative for chest pain, leg swelling and palpitations GASTROINTESTINAL: Negative for abdominal discomfort GENITOURINARY: Negative for dysuria, frequency and incontinence MUSCULOSKELETAL: Negative for joint pain or swelling, back pain, and muscle pain. NEUROLOGIC:left sided weakness SKIN:Negative for lesions, rash, and itching. PSYCHIATRIC: Negative for sleep disturbance, mood disorder and recent psychosocial stressors. HEMATOLOGIC/LYMPHATIC/IMMUNOLOGIC:Negative for prolonged bleeding, bruising easily, and swollen nodes. Neuro: -numbness tinging focal deficits PHYSICAL EXAM: (8) BP 114/68 Pulse 91 Temp 36.8 ?C (98.3 ?F) (Oral) Resp 16 Ht 177.8 cm (5' 10) Wt 91 kg (200 lb 11.2 oz) SpO2 97% BMI 28.80 kg/m? Constitutional: Well developed and Well nourished HEENT: EOM's intact and Fair dentition Resp: Decreased breath sounds and Respiratory effort: normal Cardiovascular: Regular rate AND rhythm and S1, S2 normal GI: Soft and Bowel sounds present Integumentary: Warm and Dry Musculoskeletal: Deformities noted: arthritic joints, fingers, Neurological/Psychiatric: Oriented to time, place AND person , Alert, Oriented and No gross focal neurologic deficits Additional systems reviewed: No additional systems reviewed Labs: Invalid input(s): MBP Recent Labs 04/04/18 0158 04/04/18 0008 WBC 14.34* 17.22* HB 10.8* 6.0* HCT 33.6* 19.1* PLT 257 350 Recent Labs 04/04/18 0008 INR 1.0 Recent Labs 04/04/18 0008 NA 139 K 3.7 CHLOR 106* CO2 23 BUN 25* CREAT 0.95 GLUC 130* ALKPHOS 58 ALT 25 AST 19 ALB 2.9* Cholesterol, Total 92 04/04/2018 HDL Cholesterol 24 04/04/2018 LDL Cholesterol 56 04/04/2018 DATA: I have personally reviewed the following data: outside [facility] loaded to [facility]. [facility] echo: CONCLUSIONS: - Exam indication: CAD - The left ventricle is normal in size. Left ventricular systolic function is normal. EF = 57 ? 5% (2D biplane) Normal left ventricular diastolic function. GLS= ?-16.9%. - The right ventricle is normal in size. Right ventricular systolic function is normal. - The patient has not had a prior CC echocardiographic exam for comparison. Conduit: Right hand dominant. No left PI as pt had extensive left arm surgery and weakness from stroke. Impression: This is a 57 year old year-old male, who is being evaluated for surgical intervention of coronary artery disease. In consideration for surgery, the patient's acute and chronic medical issues have been evaluated as documented above and reviewed in the electronic medical record. Active Hospital Problems Diagnosis - NSTEMI (non-ST elevated myocardial infarction) (HCC) - Coronary artery disease involving [place] coronary artery of [place] heart with unstable angina pectoris (HCC) Plan: Patient will be seen by the surgeon, Dr. Sammy Zhu M.D.. Before surgery the patient will need the following: Baseline CT brain WO contrast PFT with DLCO Chest CT cardiac WO contrast Leg vein mapping mammary artery US Anticipated Discharge Needs: CM consult for placement and PT/OT/RT evalulation for anticipated Home Care needs These findings will be communicated back to the requesting provider electronically. SIGNATURE:Mercedes Montalvo RN LANDSCAPE CONTRACTOR.TRACK LABORER PAGER:[phone] Date of Service: April 04, 2018 Time of Service: 1:07 PM Tommie Gandhi Rt 04/04/2018 11:52 AM Signed Radiology Service Progress Note PATIENT NAME: Rick George Jr. DATE OF SERVICE: April 04, 2018 TIME: 11:52 AM PATIENT IDENTITY VERIFICATION COMPLETED USING TWO (2) METHODS: Patient confirmed name verbally and ID band matches.. PATIENT GENDER DATA: Male PATIENT RELEVANT IMPLANT DATA REVIEWED: Not Applicable RADIOLOGY DEPARTMENT: General X-ray: Exam(s) Completed: Chest X-Ray PERIPHERAL IV DATA: Not applicable SIGNED BY: Tommie Gandhi Rt April 04, 2018 11:[address], RD 04/04/2018 12:21 PM Signed NUTRITION THERAPY INITIAL ASSESSMENT SERVICE DATE: 04/04/2018 SERVICE TIME: 0900 RECOMMENDED MALNUTRITION DIAGNOSIS: NO MALNUTRITION IDENTIFIED NUTRITION CARE PLAN: Problem, Etiology and Signs/Symptoms: Suboptimal oral intake related to decreased appetite and ongoing diarrhea associated with CDiff as evidenced by pt interview. Intervention: 1) Continue HH 2g Na+ restricted diet with CHO restrictions 2) Adding G2 Gatorade BID for hydration 3) Recommend daily MVI to meet RDIs 4) Please document accurate intakes of meals to further assess nutritional status. Thank you. Goal: pt to consume >/ 75% of est needs prior to d/c Monitor and Evaluation: 1) PO intake 2) Supplement tolerance 3) Wt status 4) Biochemical Markers 5) Skin integrity 6) Plan of care Discharge Nutrition Recommendations: Diet: as above, unless otherwise indicated Supplements: high kcal/high ptn commercial beverage if PO </ 75% of est needs _ _ _ _ _ _ _ _ _ _ _ _ _ _ _ _ _ _ _ _ _ _ _ _ _ _ _ _ _ _ _ _ _ _ _ _ _ _ _ _ _ _ _ _ _ _ _ Per HPI: Rick George Jr. is a 57 year old male w PMH of DM2 c/b neuropathy, HTN, HLD, PAD/PVD, and CVA who presented for evaluation for PCI vs CABG after an NSTEMI on 04/01/18. ? Pt presented to [facility] on 04/01/18 w a 7d hx of increasing cough and SOB, CP wo radiation and diarrhea. CT PE wo PE but b/l effusions and groundglass opacities. EKG showed NSR, age unclear septal infarct, and non -specific STANDT wave abnmlities. Tn 6, BNP 600. Serial EKGs and Kylah showed no STEMI. Cdiff was pos and pt started on Flagyl. Pt was treated as likely HFpEF given SOB and gently diuresed, loaded w ASA and Brillinta. BB and ACEI were held due to low BP. LHC on 04/03/18 w LMT 25%, Prox LAD 85%, Dist LAD 75%, Prox LCX 75%, Mid LCX 85%, Ramus diffuse dz, and RCA 95%. Pt was TFd to [facility] for PCI w rotor vs CABG. 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 Pt denies any chewing/swallowing difficulties, no current N/V, + diarrhea (CDiff +). Pt denies any food allergies at present. Pt is agreeable to supplementation while admitted. GI symptoms: diarrhea (+CDiff) Abdominal Exam: not assessed Is the patient having any pain that is interfering with oral/enteral intake? No ANTHROPOMETRICS Height: 177.8 cm (5' 10) Admission Weight: 92 kg (202 lb 12.8 oz) Current Weight: 91 kg (200 lb 11.2 oz) Body mass index is 28.8 kg/m?. overweight Wt loss [employer]GER [employer]: 4.6% x ~1 year Pt states wt fluctuates between 195-210# HT/WT/BMI HEIGHT WEIGHT 04/27/2017 95.255 kg 07/27/2017 93.895 kg 10/12/2017 5' 10 93.895 kg 11/01/2017 89.359 kg 01/30/2018 93.895 kg 04/03/2018 5' 10 04/04/2018 91.037 kg [place] Body Weight: 75.5kg Resting Metabolic Rate: 1750 Estimated kilocalorie needs: 5234-5409 kilocalories determined by 25-30 kcal/kg @ [facility] Estimated protein needs: 83-98 grams determined by 1.1-1.3g/kg @ [place] weight Estimated fluid needs: ~0554-2235 milliliters based on 1 mL per kcal (unless otherwise indicated) NUTRITION FOCUSED PHYSICAL EXAM: Subcutaneous Fat Loss Orbital No fat loss Triceps No fat loss Mid-axillary at the iliac crest Unable to determine at this time Muscle Loss Locations: Temporalis No muscle loss Pectoralis No muscle loss Deltoids No muscle loss Interosseous No muscle loss Latissimus dorsi, trapezius Unable to determine at this time Quadriceps No muscle loss Gastrocnemius Unable to determine at this time Potential micronutrient deficiency revealed in: No deficiency identified Edema: No Ascites: No Assessment of Functional Status: Functional capacity is unrelated to nutrition status Temperature Max:37 ?C (98.6 ?F) BP 111/64 Pulse 88 Resp 20 Recent Labs 04/04/18 0158 04/04/18 0008 GLUC -- 130* BUN -- 25* CREAT -- 0.95 NA -- 139 K -- 3.7 CHLOR -- 106* CO2 -- 23 ALB -- 2.9* HB 10.8* 6.0* HCT 33.6* 19.1* WBC 14.34* 17.22* P -- 3.2 MG -- 1.9 Potential Signs of Inflammation: leukocytosis and hyperglycemia Current Pertinent Medications: 0.9% NaCl 3-5 mL 3-5 mL INTRAVENOUS q 12 H benzonatate 100 mg cap(s) (TESSALON PERLE) 100 mg ORAL TID traMADol 50 mg tab(s) (ULTRAM) 50 mg ORAL q 6 H PRN gabapentin 800 mg tab(s) (NEURONTIN) 800 mg ORAL TID cetirizine 10 mg tab(s) (ZyrTEC) 10 mg ORAL DAILY vancomycin 125 mg oral liquid (VANCOCIN) 125 mg ORAL QID tiZANidine 4 mg tab(s) (ZANAFLEX) 4 mg ORAL TID PRN carvedilol 6.25 mg tab(s) (COREG) 6.25 mg ORAL BID w MEALS insulin lispro injection (rapid acting) (HumaLOG) SUBCUTANEOUS w MEALS MNT Billing Type: Initial Assess/15 min 4 units SIGNATURE: Froylan Benjamin RD, LD PATIENT NAME: Rick George Jr. DATE: April 04, 2018 TIME: 12:00 PM PAGER: [phone], RD 04/04/2018 12:23 PM Signed [facility] NUTRITION HEART FAILURE PATIENT EDUCATION TOPIC: Survival Skills: Diet PATIENT NAME: Rick George Jr. SERVICE DATE: April 04, 2018 Diagnosis: ADULT: Heart Failure EXEMPTION FROM DIET EDUCATION Patient/family refusal of diet education due to receipt of previous instructions Referral (Recommendation): Primary Care Provider MNT Billing Type: Initial Assess/15 min [address], LD Pager: [phone] April 04, 2018 12:22 PM Bernadine Pozo RN, RN 04/04/2018 1:07 PM Signed Wound Care Consult Team Per HANDP: DM2 c/b neuropathy, HTN, HLD, PAD/PVD, and CVA who presented for evaluation for PCI vs CABG after an NSTEMI on 04/01/18. ? Pt presented to [facility] on 04/01/18 w a 7d hx of increasing cough and SOB, CP wo radiation and diarrhea. CT PE wo PE but b/l effusions and groundglass opacities. EKG showed NSR, age unclear septal infarct, and non -specific STANDT wave abnmlities. Tn 6, BNP 600. Serial EKGs and Kylah showed no STEMI. Cdiff was pos and pt started on Flagyl. PATIENT NAME: Rick George Jr. Reason for Assessment: For puncture wound to R plantar heel. 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 He was treated by a physician at a local wound center and received oral antibiotics for 1 week. He also reported he received a Tetanus vaccine recently. On the R plantar foot was a clean red shallow dry wound that was healing, small in size, approximately 0.3x0.3x0.3cm. The surrounding skin was dry and flaky. There was no drainage, no surrounding redness. Wound covered with dry clean dressing. Wound Evaluation: Healing puncture wound on the R plantar heel. Goals: Maintain skin prevention measures based on Akbar risk assessment scores. Recommendations: 1. R plantar heel: Cleanse with NS or wound cleanser. Pat dry. Apply 2x2 gauze and secure with paper tape or Bandaid. Change daily. 2. Pt should wear non-skid socks while up ambulating. 3. Pt to f/u at local wound center. Electronically Signed By: Bernadine Pozo RN [facility] [place], [place] 04/04/2018 7:13 PM Signed Radiology Service Progress Note PATIENT NAME: Rick George Jr. DATE OF SERVICE: April 04, 2018 TIME: 7:13 PM PATIENT IDENTITY VERIFICATION COMPLETED USING TWO (2) METHODS: Patient confirmed name verbally and ID band matches.. PATIENT GENDER DATA: Male PATIENT RELEVANT IMPLANT DATA REVIEWED: Yes RADIOLOGY DEPARTMENT: CT; Exam(s) Completed: Brain and Cardiac PERIPHERAL IV DATA: Not applicable SIGNED BY: INNA Leyva April 04, 2018 7:13 PM Van Mcguire MD 04/05/2018 1:49 PM Signed [facility] PROGRESS NOTE (Template ID [id number]) Rick George Jr. [id number] PRIMARY SERVICE: [facility] Clinical Cardiology A HOSPITAL DAY: # 1 INTERVAL HISTORY NAEO Pt feels like cough and diarrhea have improved PHYSICAL EXAM BP 100/65 Pulse 80 Temp 36.8 ?C (98.2 ?F) (Oral) Resp 18 Ht 177.8 cm (5' 10) Wt 90.6 kg (199 lb 11.2 oz) SpO2 97% BMI 28.65 kg/m? Intake/Output Summary (Last 24 hours) at 04/05/18 1328 Last data filed at 04/05/18 1200 Gross per 24 hour Intake 1360 ml Output 2710 ml Net -1350 ml General Appearance: Well developed, Well nourished , Obese and No acute distress HEENT: PERRLA, EOM's intact, Sclera anicteric, Fair dentition and JVD - no Lungs: Crackles b/l, cough present Heart: Regular rate AND rhythm, nml S1, S2, no m/r/g Abdomen: Soft, Non-tender and Bowel sounds present Skin: Warm and Dry Musculoskeletal: No deformities and No joint deformities Neurologic/Psychiatric: Oriented to time, place AND person , No gross focal neurologic deficits but some numbness in feet b/l MEDICATIONS Current hospital medications: insulin glargine 10 Units pen (long acting) (LANTUS SOLOSTAR, BASAGLAR KWIKPEN) 10 Units SUBCUTANEOUS DAILY (8 AM) 0.9% NaCl 3-5 mL 3-5 mL INTRAVENOUS q 12 H benzonatate 100 mg cap(s) (TESSALON PERLE) 100 mg ORAL TID traMADol 50 mg tab(s) (ULTRAM) 50 mg ORAL q 6 H PRN gabapentin 800 mg tab(s) (NEURONTIN) 800 mg ORAL TID cetirizine 10 mg tab(s) (ZyrTEC) 10 mg ORAL DAILY vancomycin 125 mg oral liquid (VANCOCIN) 125 mg ORAL QID nortriptyline 50 mg cap(s) (PAMELOR) 50 mg ORAL AT BEDTIME tiZANidine 4 mg tab(s) (ZANAFLEX) 4 mg ORAL TID PRN dextrose 40 % 15 g 15 g ORAL PRN glucagon 1 mg injection (GLUCAGEN) 1 mg INTRAMUSCULAR PRN dextrose 50% in water 25 mL syringe 12.5 g INTRAVENOUS PRN carvedilol 6.25 mg tab(s) (COREG) 6.25 mg ORAL BID w MEALS aspirin 81 mg chewable tab(s) 81 mg ORAL DAILY rosuvastatin 20 mg tab(s) (CRESTOR) 20 mg ORAL AT BEDTIME heparin 5,000 Units injection 5,000 Units SUBCUTANEOUS q 12 H insulin lispro injection (rapid acting) (HumaLOG) SUBCUTANEOUS w MEALS insulin lispro injection (rapid acting) (HumaLOG) SUBCUTANEOUS AT BEDTIME DATA Recent Labs 04/05/18 0531 04/04/18 0158 04/04/18 0008 WBC 11.15* 14.34* 17.22* HB 11.3* 10.8* 6.0* HCT 34.5* 33.6* 19.1* PLT 267 257 350 Recent Labs 04/05/18 0531 04/04/18 0008 NA 138 139 K 3.9 3.7 CO2 23 23 BUN 15 25* CREAT 0.79 0.95 GLUC 107* 130* MG -- 1.9 IMAGING Reviewed ASSESSMENT AND PLAN Rick George Jr. is a 57 year old male w PMH of DM2 c/b neuropathy, HTN, HLD, PAD/PVD, and CVA who presented for evaluation for PCI vs CABG after an NSTEMI on 04/01/18. Pt has multivessel dz and DM2 so will likely go for CABG, however patient has at least one active infection, Cdiff and possible PNA. Will start CAD Rxs, prep for CABG, and treat/work up infections. PLAN FOR TODAY -No UOP overnight, will give 500cc NS bolus, bladder scan, follow I/Os closely -Fup with CTS re CABG, surgeon Dr Zhu - Cont CTS w/u with mammary artery US - Start glargine at half home dose - wound care on board for R heel ulcer from nail Neuro #Peripheral Neuropathy 2/2 DM2 Mild numbness in feet b/l Plan Cont Gabapentin ? CV #NSTEMI in s/o 3VDz Tn peak 6, BNP ~600 Plan Plan for CABG, workup Review CD with Staff for possible repeat [facility] Echo Carotid US for CABG prep See plan for CAD ? #CAD LMT 25% LAD Prox 85%, Dist 75% LCX Prox 75%, Dist 85% RCA 95% Plan ASA Hold Brillinta for possible upcoming CABG No heparin gtt given last CP on Tuesday, no current CP Start Coreg If room on BP, add lisinopril tomorrow Check lipid panel, TSH, A1c Lipoprotein A given low total Chol and 3VDz Add low dose statin if possible given hx of CK elevation ? #HTN Plan Cont Coreg Add lisinopril if BP room ? Pulmonary #Pneumonia? DDx is PNA vs. Acute CHF 2/2 NSTEMI Plan CXR 2 view to look for consolidation, this does not r/o atypicals Blood cx Histo and Strep Ag Tessalon pearls Will avoid treatment for now given likelihood of CHF and lack of consolidation on CXR frontal Will reassess if no improvement with diuresis and/or continued/worsening s/s ? GI #Cdiff Pos test at OSH, pt received Flagyl Some improvement in frequency of diarrhea on Flagyl Now with LUQ pain/ttp Plan Vancomycin day #1 given, tx length 10 days KUB for LUQ quadrant pain in s/o Cdiff ? Endocrine #DM2 A1c ~6, c/b neuropathy Plan SSI Insulin ? Diet Hrt Healthy 2gNa DVT ppx - heparin sq GI ppx - not indicated Case to be discussed with staff Blanco Paul MD Pager [phone] (please see below for after hours communication) 04/05/2018 1:28 PM For communication after 5 pm on weekdays and after 12 pm on weekends, please page the following: - Clinical Cardiology patients on all floors: page [phone] - Other Cardiology patients on J5 and J6: page [phone] - Other Cardiology patients on J7 and J8: page [phone] [facility] STAFF PHYSICIAN NOTE OF PERSONAL INVOLVEMENT IN CARE IMPRESSION: Patient is a 57 year old male with: #Coronary artery disease status post NSTEMI and found to have severe multivessel disease (I have reviewed his cardiac catheterization and have uploaded to [employer]) #PAD #Diabetes mellitus #Prior CVA #Mixed hyperlipidemia #Current clostridium difficile infection ? PLAN: Consideration for CABG. We are awaiting CTS team input. I have reviewed the documentation obtained and documented by the Resident and have reviewed and updated the problem list as appropriate. I have personally performed a face to face assessment of the patient and have personally participated in the rubi components. I have discussed the case and management of the patient's care. STAFF PHYSICIAN: Van Mcguire MD DATE OF SERVICE: April 05, 2018 TIME OF SERVICE: 1:48 PM Previous Version Fabiola Anders RN, RN 04/06/2018 10:20 AM Signed CARE MANAGEMENT PROGRESS NOTE SERVICE DATE: 04/06/2018 SERVICE TIME: 10:17 AM LOS: 2 days Needs Prior to Discharge: To Be Determined EMR reviewed. Patient remains on RA. Wound care following patient for R heel wound from nail. CTS evaluation in process, patient being considered for CABG. Will follow patients progress and plan for discharge accordingly. No discharge timeframe currently identified. SIGNATURE: Fabiola Anders RN PATIENT NAME: Rick George Jr. DATE: April 06, 2018 TIME: 10:17 AM PAGER/CONTACT #: [phone] [facility] PAGER: [phone] Van Mcguire MD 04/06/2018 1:32 PM Signed [facility] PROGRESS NOTE (Template ID [id number]) Rick George Jr. [id number] PRIMARY SERVICE: [facility] Clinical Cardiology A HOSPITAL DAY: # 2 INTERVAL HISTORY NAEO Pt feels like cough and diarrhea have improved Stools are almost normal, only 1 BM overnight PHYSICAL EXAM BP 103/63 Pulse 79 Temp 36.8 ?C (98.2 ?F) (Oral) Resp 18 Ht 177.8 cm (5' 10) Wt 89.8 kg (198 lb) SpO2 96% BMI 28.41 kg/m? Intake/Output Summary (Last 24 hours) at 04/06/18 1314 Last data filed at 04/06/18 0900 Gross per 24 hour Intake 360 ml Output 2600 ml Net -2240 ml General Appearance: Well developed, Well nourished , Obese and No acute distress HEENT: PERRLA, EOM's intact, Sclera anicteric, Fair dentition and JVD - no Lungs: Crackles b/l, cough present Heart: Regular rate AND rhythm, nml S1, S2, no m/r/g Abdomen: Soft, Non-tender and Bowel sounds present Skin: Warm and Dry Musculoskeletal: No deformities and No joint deformities Neurologic/Psychiatric: Oriented to time, place AND person , No gross focal neurologic deficits but some numbness in feet b/l MEDICATIONS Current hospital medications: lactated ringers 1,000 mL iv bolus 1,000 mL INTRAVENOUS ONCE insulin glargine 10 Units pen (long acting) (LANTUS SOLOSTAR, BASAGLAR KWIKPEN) 10 Units SUBCUTANEOUS DAILY (8 AM) 0.9% NaCl 3-5 mL 3-5 mL INTRAVENOUS q 12 H benzonatate 100 mg cap(s) (TESSALON PERLE) 100 mg ORAL TID traMADol 50 mg tab(s) (ULTRAM) 50 mg ORAL q 6 H PRN gabapentin 800 mg tab(s) (NEURONTIN) 800 mg ORAL TID cetirizine 10 mg tab(s) (ZyrTEC) 10 mg ORAL DAILY vancomycin 125 mg oral liquid (VANCOCIN) 125 mg ORAL QID nortriptyline 50 mg cap(s) (PAMELOR) 50 mg ORAL AT BEDTIME tiZANidine 4 mg tab(s) (ZANAFLEX) 4 mg ORAL TID PRN dextrose 40 % 15 g 15 g ORAL PRN glucagon 1 mg injection (GLUCAGEN) 1 mg INTRAMUSCULAR PRN dextrose 50% in water 25 mL syringe 12.5 g INTRAVENOUS PRN carvedilol 6.25 mg tab(s) (COREG) 6.25 mg ORAL BID w MEALS aspirin 81 mg chewable tab(s) 81 mg ORAL DAILY rosuvastatin 20 mg tab(s) (CRESTOR) 20 mg ORAL AT BEDTIME heparin 5,000 Units injection 5,000 Units SUBCUTANEOUS q 12 H insulin lispro injection (rapid acting) (HumaLOG) SUBCUTANEOUS w MEALS insulin lispro injection (rapid acting) (HumaLOG) SUBCUTANEOUS AT BEDTIME DATA Recent Labs 04/05/18 0531 04/04/18 0158 04/04/18 0008 WBC 11.15* 14.34* 17.22* HB 11.3* 10.8* 6.0* HCT 34.5* 33.6* 19.1* PLT 267 257 350 Recent Labs 04/05/18 0531 04/04/18 0008 NA 138 139 K 3.9 3.7 CO2 23 23 BUN 15 25* CREAT 0.79 0.95 GLUC 107* 130* MG -- 1.9 IMAGING Reviewed ASSESSMENT AND PLAN Rick George is a 57 year old male w PMH of DM2 c/b neuropathy, HTN, HLD, PAD/PVD, and CVA who presented for evaluation for PCI vs CABG after an NSTEMI on 04/01/18. Pt has multivessel dz and DM2 so will likely go for CABG, however patient has at least one active infection, Cdiff and possible PNA. Will start CAD Rxs, prep for CABG, and treat/work up infections. PLAN FOR TODAY -UOP -3L net yesterday, will give IVFs today to match I/Os -Fup with CTS re CABG, surgeon Dr Zhu - Cont glargine at half home dose, follow BG - wound care on board for R heel ulcer from nail - PT for sore hips - TMAO level for role of pt diet in his heart dz, given nml lipid profile Neuro #Peripheral Neuropathy 2/2 DM2 Mild numbness in feet b/l Plan Cont Gabapentin ? CV #NSTEMI in s/o 3VDz Tn peak 6, BNP ~600 Plan Plan for CABG, workup Review CD with Staff for possible repeat [facility] Echo Carotid US for CABG prep See plan for CAD ? #CAD LMT 25% LAD Prox 85%, Dist 75% LCX Prox 75%, Dist 85% RCA 95% Plan ASA Hold Brillinta for possible upcoming CABG No heparin gtt given last CP on Tuesday, no current CP Start Coreg If room on BP, add lisinopril tomorrow Check lipid panel, TSH, A1c Lipoprotein A given low total Chol and 3VDz Add low dose statin if possible given hx of CK elevation ? #HTN Plan Cont Coreg Add lisinopril if BP room ? Pulmonary #Pneumonia? DDx is PNA vs. Acute CHF 2/2 NSTEMI Plan CXR 2 view to look for consolidation, this does not r/o atypicals Blood cx Histo and Strep Ag Tessalon pearls Will avoid treatment for now given likelihood of CHF and lack of consolidation on CXR frontal Will reassess if no improvement with diuresis and/or continued/worsening s/s ? GI #Cdiff Pos test at OSH, pt received Flagyl Some improvement in frequency of diarrhea on Flagyl Now with LUQ pain/ttp Plan Vancomycin day #1 given, tx length 10 days KUB for LUQ quadrant pain in s/o Cdiff ? Endocrine #DM2 A1c ~6, c/b neuropathy Plan SSI Insulin ? Diet Hrt Healthy 2gNa DVT ppx - heparin sq GI ppx - not indicated Case to be discussed with staff Blanco Paul MD Pager [phone] (please see below for after hours communication) For communication after 5 pm on weekdays and after 12 pm on weekends, please page the following: - Clinical Cardiology patients on all floors: page [phone] - Other Cardiology patients on J5 and J6: page [phone] - Other Cardiology patients on J7 and J8: page [phone] [facility] STAFF PHYSICIAN NOTE OF PERSONAL INVOLVEMENT IN CARE IMPRESSION: Patient is a 57 year old male with: #Coronary artery disease status post NSTEMI and found to have severe multivessel disease (I have reviewed his cardiac catheterization and have uploaded to [employer]) #PAD #Diabetes mellitus #Prior CVA #Mixed hyperlipidemia #Current clostridium difficile infection ? PLAN: Consideration for CABG. We are awaiting CTS team input. I have reviewed the documentation obtained and documented by the Resident and have reviewed and updated the problem list as appropriate. I have personally performed a face to face assessment of the patient and have personally participated in the rubi components. I have discussed the case and management of the patient's care. STAFF PHYSICIAN: Van Mcguire MD DATE OF SERVICE: April 06, 2018 TIME OF SERVICE: 1:31 PM Previous Version Mercedes Montalvo RN [employer] 04/06/2018 3:[address] PM [address] CTS staff Dr. Zhu Intended surgery: CABG Date of surgery: 10 to 14 days after C-diff treatment begun and or cleared by ID. Vancocin started 04/04. Preop testing is complete. CBC, Coags, BMP, Mg, Phos Recent Labs 04/06/18 0350 04/05/18 1106 04/05/18 0531 04/04/18 0158 04/04/18 0008 WBC 11.83* -- 11.15* 14.34* 17.22* HB 10.8* -- 11.3* 10.8* 6.0* HCT 33.8* -- 34.5* 33.6* 19.1* PLT 305 -- 267 257 350 INR 1.1 -- 1.1 -- 1.0 APTT -- 25.6 -- -- -- NA 140 -- 138 -- 139 K 4.3 -- 3.9 -- 3.7 CHLOR 103 -- 104 -- 106* CO2 25 -- 23 -- 23 BUN 12 -- 15 -- 25* CREAT 0.81 -- 0.79 -- 0.95 GLUC 111* -- 107* -- 130* CA 8.5 -- 8.5 -- 8.0* MG -- -- -- -- 1.9 P -- -- -- -- 3.2 Mercedes Montalvo RN [employer].AD Josie Alonzo Asp, PT 04/07/2018 9:25 AM Signed Physical Therapy Evaluation SERVICE DATE: 04/07/2018 SERVICE TIME: 809 ROOM: [place] [id number] Recommended Discharge Disposition: Outpatient Physical Therapy PT Recommendations to Nursing: (up ad jame) PT 6 Clicks Score: 24 ASSESSMENT : Patient presents with pain of his L hip exacerbated during his hospital admission. Requires skilled PT for pain management. Patient Disposition at Start of Session: Supine in Bed Patient Disposition at End of Session: Supine in Bed Tolerated Full Session Physical Therapy Problem List: Pain Patient /Caregiver Goals: Walk;Go Home Goals for Plan of Care: Able to perform HEP with: Independent Transfer supine to/from sit with: Independent Transfer sit to/from stand with: Independent Ambulate with: Independent Distance: >300 feet Ambulate up and down steps with: Independent Number of steps: 12 Rehab Potential: Excellent PLAN: Treatment Frequency (times per week): 2 Current admission Treatment Interventions: Education;Joint Mobility;Strengthening;Functional Mobility Training;Modalities;Pain Management Modalities: Ice Plan of Care developed with: Patient TREATMENT INTERVENTIONS: Therapy Diagnosis: General symptoms and signs-other Interventions Provided: Evaluation;Therapeutic Exercise (04778) $ Evaluation-Low (37693) Billed Units: 1 unit Therapeutic Exercise (28420) Treatment Minutes: 25 2 units Skilled Intervention(s): Instruction in therapeutic exercise for stretching and strengthening of his L hip to reduce pain. Patient instructed in 4 way hip series. Instructed patient in hamstring, hip flexor, and piriformis stretch. Patient given written HEP including frequency, intensity, and duration of all exercises. Given heat pack for L hip pain, educated on safety while using hip modality. Patient educated on alternating hip/ice to comfort for hip pain. Patient was educated on the role of PT, POC, and DC Planning. Vital signs and symptoms monitored throughout the session. Total Timed Code Treatment Minutes: 25 Total Treatment Time (minutes): 48 FUNCTIONAL G CODE: PT 6 Clicks Score: 24 (04/07/18 08) Mobility: Walking and Moving Around Current Status (G8978): CH (04/07/18 0810) Mobility: Walking and Moving Around Goal Status (G8979): CH (04/07/18809) Based on clinical assessment and the score on the 6 Clicks Functional Assessment Tool, the G code and corresponding severity modifiers are documented above. 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 SIGNATURE: Josie Alonzo Asp PT PATIENT NAME: Rick George Jr. DATE: April 07, 2018 TIME: 9:09 AM PAGER/CONTACT #: [phone] Fanta Hernandez-Viral 04/07/2018 12:34 PM Signed NUTRITION THERAPY FOLLOW-UP NOTE SERVICE DATE: 04/07/2018 SERVICE TIME: 10:00am Anthropometrics: Height: 177.8 cm (5' 10) Current Weight: Weight: 90.7 kg (199 lb 14.4 oz) Body mass index is 28.68 kg/m?. Loss of lean body mass/visual muscle wasting: no Admitting Diagnosis: CAD (coronary artery disease) [I25.10] Present Diet Order: Carbohydrate Controlled and Heart Healthy 2 gm Na Is the patient having any pain that is interfering with oral/enteral intake? No Allergies: ALLERGIES Allergen Reactions - Lipitor [Atorvastat* Contraindication-Medical Surgical Elevated LFTs and elevated CK level - Metformin Diarrhea Reason for Visit: Nutrient intake assessment: Current intake of meals: 0 -100% Follow-up: Intervention from 04/04/18 was not met (Goal >75% of estimated needs - 1888-2265kcal, 83-98g protein) Intakes: 04/06/18 - 1108kcal, 30g protein 04/05/18 - 804kcal, 22g protein (dinner not recorded) 04/04/18 - 446kcal, 8g protein Patient concerns/Issues: Patient states his appetite is okay and intakes have been improving. Has some occasional nausea but no vomiting. Diarrhea has subsided and patient states he is feeling back to normal. Patient requests a supplement, pended Boost GC twice daily. No other requests at this time. Weights have been stable. Will continue to monitor weight and intakes. Nursing Admission Assessment Malnutrition Score Tool: 0 Plan of Care: Recommendation No problems noted at this time. Will screen again within 7 days Supplement Boost glucose control twice daily (provides 500kcal, 28g protein) Discharge Plan: Home on diet ordered. MNT Billing Type: Routine Care/15 min 2 units SIGNATURE: Arpit Hernandez PATIENT NAME: Rick George Jr. DATE: April 07, 2018 TIME: 12:21 PM PAGER: [phone] Van Mcguire MD 04/07/2018 2:21 PM Signed [facility] PROGRESS NOTE (Template ID [id number]) Rick George Jr. [id number] PRIMARY SERVICE: [facility] Clinical Cardiology A HOSPITAL DAY: # 3 INTERVAL HISTORY NAEO Pt feels like cough and diarrhea have improved Stools are almost normal, only 2 BM Pt states hip is still hurting. PT is consulted for evaluation and treatment PHYSICAL EXAM BP 106/61 Pulse 69 Temp 36.7 ?C (98 ?F) (Oral) Resp 18 Ht 177.8 cm (5' 10) Wt 90.7 kg (199 lb 14.4 oz) SpO2 96% BMI 28.68 kg/m? Intake/Output Summary (Last 24 hours) at 04/07/18 1230 Last data filed at 04/07/18 1000 Gross per 24 hour Intake 960 ml Output 2500 ml Net -1540 ml General Appearance: Well developed, Well nourished , Obese and No acute distress HEENT: PERRLA, EOM's intact, Sclera anicteric, Fair dentition and JVD - no Lungs: Crackles b/l bases Heart: Regular rate AND rhythm, nml S1, S2, no m/r/g Abdomen: Soft, Non-tender and Bowel sounds present Skin: Warm and Dry Musculoskeletal: No deformities and No joint deformities Neurologic/Psychiatric: Oriented to time, place AND person MEDICATIONS Current hospital medications: insulin glargine 10 Units pen (long acting) (LANTUS SOLOSTAR, BASAGLAR KWIKPEN) 10 Units SUBCUTANEOUS DAILY (8 AM) 0.9% NaCl 3-5 mL 3-5 mL INTRAVENOUS q 12 H benzonatate 100 mg cap(s) (TESSALON PERLE) 100 mg ORAL TID traMADol 50 mg tab(s) (ULTRAM) 50 mg ORAL q 6 H PRN gabapentin 800 mg tab(s) (NEURONTIN) 800 mg ORAL TID cetirizine 10 mg tab(s) (ZyrTEC) 10 mg ORAL DAILY vancomycin 125 mg oral liquid (VANCOCIN) 125 mg ORAL QID nortriptyline 50 mg cap(s) (PAMELOR) 50 mg ORAL AT BEDTIME tiZANidine 4 mg tab(s) (ZANAFLEX) 4 mg ORAL TID PRN dextrose 40 % 15 g 15 g ORAL PRN glucagon 1 mg injection (GLUCAGEN) 1 mg INTRAMUSCULAR PRN dextrose 50% in water 25 mL syringe 12.5 g INTRAVENOUS PRN carvedilol 6.25 mg tab(s) (COREG) 6.25 mg ORAL BID w MEALS aspirin 81 mg chewable tab(s) 81 mg ORAL DAILY rosuvastatin 20 mg tab(s) (CRESTOR) 20 mg ORAL AT BEDTIME heparin 5,000 Units injection 5,000 Units SUBCUTANEOUS q 12 H insulin lispro injection (rapid acting) (HumaLOG) SUBCUTANEOUS w MEALS insulin lispro injection (rapid acting) (HumaLOG) SUBCUTANEOUS AT BEDTIME DATA Recent Labs 04/05/18 0531 04/04/18 0158 04/04/18 0008 WBC 11.15* 14.34* 17.22* HB 11.3* 10.8* 6.0* HCT 34.5* 33.6* 19.1* PLT 267 257 350 Recent Labs 04/05/18 0531 04/04/18 0008 NA 138 139 K 3.9 3.7 CO2 23 23 BUN 15 25* CREAT 0.79 0.95 GLUC 107* 130* MG -- 1.9 IMAGING Reviewed ASSESSMENT AND PLAN Rick George Jr. is a 57 year old male w PMH of DM2 c/b neuropathy, HTN, HLD, PAD/PVD, and CVA who presented for evaluation for PCI vs CABG after an NSTEMI on 04/01/18. Pt has multivessel dz and DM2 so will likely go for CABG, however patient has at least one active infection, Cdiff and possible PNA. Will start CAD Rxs, prep for CABG, and treat/work up infections. PLAN FOR TODAY - IVF as needed - ID consult to see if he needs full 10 days of PO vanc or if he can proceed safely to surgery prior to that - Cont glargine at half home dose, follow BG - wound care on board for R heel ulcer from nail - PT for sore hips Neuro #Peripheral Neuropathy 2/2 DM2 Mild numbness in feet b/l Plan Cont Gabapentin ? CV #NSTEMI in s/o 3VDz Tn peak 6, BNP ~600 Plan CABG w/u complete, accepted by [facility] for surgery. Date depending on necessary treatement duraiton for c diff ? #CAD LMT 25% LAD Prox 85%, Dist 75% LCX Prox 75%, Dist 85% RCA 95% Plan ASA Hold Brillinta for upcoming CABG No heparin gtt given last CP on Tuesday, no current CP Coreg lisinopril Rosuvastatin. No signs of myopathy ? #HTN Plan Coreg lisinopril if BP room ? Pulmonary #pulmonary edema - resolved ? GI #Cdiff Pos test at OSH, pt received Flagyl Some improvement in frequency of diarrhea on Flagyl Plan Vancomycin tx length 10 days ? Endocrine #DM2 A1c ~6, c/b neuropathy Plan SSI Insulin ? Diet Hrt Healthy 2gNa DVT ppx - heparin sq GI ppx - not indicated Case to be discussed with staff Arturo Mcmahan PGY-2, Internal Medicine [id number] [facility] STAFF PHYSICIAN NOTE OF PERSONAL INVOLVEMENT IN CARE IMPRESSION: Patient is a 57 year old male with: #Coronary artery disease status post NSTEMI and found to have severe multivessel disease (I have reviewed his cardiac catheterization and have uploaded to [employer]) #PAD #Diabetes mellitus #Prior CVA #Mixed hyperlipidemia #Current clostridium difficile infection ? PLAN: We appreciate the input of the CTS team. Plan for CABG with Dr. Zhu when C.Diff treatment is completed. I have reviewed the documentation obtained and documented by the Resident and have reviewed and updated the problem list as appropriate. I have personally performed a face to face assessment of the patient and have personally participated in the rubi components. I have discussed the case and management of the patient's care. STAFF PHYSICIAN: Van Mcguire MD DATE OF SERVICE: April 07, 2018 TIME OF SERVICE: 2:21 PM Previous Version Marita Baptiste MD 04/07/2018 9:29 PM Addendum INITIAL CONSULT INFECTIOUS DISEASE GENERAL ID SERVICE SERVICE DATE: 04/07/2018 SERVICE TIME: 12:48 PM Patient: Rick George Jr. Age: [id number] year old Sex: male Patient is seen at the text paged request of Dr. Araujo for my opinion regarding pt with 3 vessel CAD scheduled for CABG but has active c diff infection. My final recommendations will be communicated back to the requesting physician by way of copy of this note or shared electronic medical record. SUBJECTIVE: HISTORY HISTORY OF PRESENT ILLNESS: 57 year old male w PMH of DM2 c/b neuropathy, HTN, HLD, PAD/PVD, and CVA who presented for evaluation for PCI vs CABG after an NSTEMI on 04/01/18. His complaints started 2 week as cough - mainly dry, but some times violent to the point that he had chest pain that he thought was due to a rib fracture. He also had some chills, rigor but no definite fever. A week before admission, started to develop SOB along with diarrhea for which he was admitted locally. He was found to have NSTEMI and LHC showed triple vessel disease. C.diff test was positive and was started on flagyl. Antibiotics were changed to vancomycin on admission for C.diff. He is currently scheduled for CABG pending ID clearance. His diarrhea has resolved. Stool are ground beef consistency and denied any cough SOB or chest pain. He recently stepped on a nail and had secondary infection of R foot. As per patient, culture grew staph. He was treated with antibiotics with complete resolution. PAST MEDICAL HISTORY Diagnosis Date - Cataract b/l, eye exam 05/29/13 - CTS (carpal tunnel syndrome) 10/2013 b/l, chronic, Dr. 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 Mazin Hinojosa Neuro, likely from DM and Vitamin B12 defic - Stroke ([facility]) 10/01/13 - Ulnar neuropathy 10/2013 b/l, chronic, Dr. Mazin Hinojosa EMG - Vitamin D deficiency 11/2013 PAST SURGICAL HISTORY Procedure Laterality Date - DISCISSION,2ND CATARACT,LASER 06/07/2013 Yag Capsulotomy-Right eye - LASER, SECONDARY CATARACT 2006 OU - PAST SURGICAL HISTORY OF 02/2013 Amputation Right Gt toe Social History Marital status: Domestic Partner Spouse name: Years of education: Number of children: 3 Occupational History Occupation Employer Comment [employer] Social History Main Topics Smoking status: Never Smoker Smokeless tobacco: Former User Types: Chew Alcohol use: Yes 12.0 oz/week Cans of Beer (12oz): 8 per week Comment: 1-2 per day Drug use: No Sexual activity: Yes Partners with: Female FAMILY HISTORY Problem Relation Age of Onset - Diabetes Mother - Heart Father Immunization History Administered Date(s) Administered Influenza Seasonal Inj Quadrivalent Age 3+ 09/01/2016 07/27/2017 Pneumovax 07/27/2017 Tdap (Age 7+) 04/30/2013 Tetanus Diphtheria Booster (Age >7) Pres Free 02/17/2018 Current medications reviewed. reviewed ALLERGY HISTORY: ALLERGIES Allergen Reactions - Lipitor [Atorvastat* Contraindication-Medical Surgical Elevated LFTs and elevated CK level - Metformin Diarrhea REVIEW OF SYSTEMS: GENERAL: Denies fever, chills, night sweats HEENT: Negative for frequent or significant headaches. RESPIRATORY: Denies any cough, dyspnea, or wheezing. CARDIOVASCULAR: Denies any chest pain with exertion or at rest, palpitations, GASTROINTESTINAL: Denies any nausea, vomiting, abdominal pain, diarrhea. MUSCULOSKELETAL: Denies any joint swelling, joint pain, or loss of range of motion. NEURO: Denies any headaches, confusion. No weakness. HEMATOLOGY/LYMPHATIC/IMMUNOLOGIC: Denies anemia, bruising, bleeding abnormalities, HIV risk factors ENDOCRINE: Denies any heat or cold intolerance, polyuria or polydipsia. OBJECTIVE: PHYSICAL EXAM BP 106/61 Pulse 69 Temp 36.7 ?C (98 ?F) (Oral) Resp 18 Ht 177.8 cm (5' 10) Wt 90.7 kg (199 lb 14.4 oz) SpO2 96% BMI 28.68 kg/m? PHYSICAL EXAMINATION: GEN: alert and oriented HEENT: MMM. Anicteric. NECK: No thyromegaly or nodularity. No JVD. No carotid bruits. CARDIAC: RRR. S1/S2, NMRGC. PULM: CTAB, no crackles or wheezes. Normal work of breathing. ABD: S, NT, ND. Normoactive bowel sounds. No organomegaly. EXT: 2+ distal pulses bilaterally. No edema. SKIN: Warm, well-perfused. No rashes or skin breakdown. NEURO: Alert and oriented to person, place, time. Grossly non-focal motor and sensory exam. PSYCH: Appropriate mood and affect. . OBJECTIVE : LABS reviewed DATA: Imaging: No lung infiltrates on cardiac CT - lung window Microbiology: Urine strept test : pending Blood culture x 1 : negative HIV negative Hep C negative ASSESSMENT: 57 year old male w PMH of DM2 c/b neuropathy, HTN, HLD, PAD/PVD, and CVA who presented for evaluation for PCI vs CABG after an NSTEMI on 04/01/18. # Mild to moderate C.diff colitis - resolving (elevated WBC count but normal creatinine) PLAN( S): - continue PO Vancomycin 125 mg Q 6 H Through surgery - no contraindication for cardiac surgery - Plans are not final until staffed Thank you for involving us in the care of this patient. Dara Bush Fellow, Infectious Diseases Pager:[phone] April 07, 2018 ID STAFF I evaluated the patient and personally participated in the rubi components. I agree with the fellow's findings and plan as documented and have discussed the case and management of the patient's care with the fellow. I have reviewed and verified pertinent data. Recent treatment for staph abscess after stepping on nail. Treated with antibiotics and improved about 3 weeks ago no further symptoms Had recent episode of severe coughing after exposure to possibly moldy hay--now resolved ?hypersensitivity c diff--per patient had about 20 bms/day prior to calling PCP and treated with flagyl--stool became more solidified, decreased frequency on Tues Now having more solid stools ~ 2 daily Main concern in setting of c diff--frequent BMs in setting of surgery--this has improved. Small risk of worsening with perioperative antibiotcs, maintain oral vanco Foot infection--resolved Continue PO vancomycin No ID contraindication to planned surgery at this time Discussed with patient and his daughter Thank you very much for inviting us to participate in the care of this patient. Will continue to follow with you. Marita Baptiste MD Pager: [phone] April 07, 2018 Previous Version Van Mcguire MD 04/08/2018 11:47 AM Signed [facility] PROGRESS NOTE (Template ID [id number]) Rick George JrJosh [id number] PRIMARY SERVICE: [facility] A HOSPITAL DAY: # 4 INTERVAL HISTORY NAEO Pt feels like cough and diarrhea have improved Stools are almost normal, only 1 BM yesterday Pt says hip is improved after PT PHYSICAL EXAM BP 104/68 Pulse 77 Temp 36.7 ?C (98 ?F) (Oral) Resp 16 Ht 177.8 cm (5' 10) Wt 89.1 kg (196 lb 8 oz) SpO2 97% BMI 28.19 kg/m? Intake/Output Summary (Last 24 hours) at 04/08/18 1037 Last data filed at 04/08/18 0300 Gross per 24 hour Intake 1605 ml Output 1725 ml Net -120 ml General Appearance: Well developed, Well nourished , Obese and No acute distress HEENT: PERRLA, EOM's intact, Sclera anicteric, Fair dentition and JVD - no Lungs: Crackles b/l bases Heart: Regular rate AND rhythm, nml S1, S2, no m/r/g Abdomen: Soft, Non-tender and Bowel sounds present Skin: Warm and Dry Musculoskeletal: No deformities and No joint deformities Neurologic/Psychiatric: Oriented to time, place AND person MEDICATIONS Current hospital medications: insulin glargine 10 Units pen (long acting) (LANTUS SOLOSTAR, BASAGLAR KWIKPEN) 10 Units SUBCUTANEOUS DAILY (8 AM) 0.9% NaCl 3-5 mL 3-5 mL INTRAVENOUS q 12 H benzonatate 100 mg cap(s) (TESSALON PERLE) 100 mg ORAL TID traMADol 50 mg tab(s) (ULTRAM) 50 mg ORAL q 6 H PRN gabapentin 800 mg tab(s) (NEURONTIN) 800 mg ORAL TID cetirizine 10 mg tab(s) (ZyrTEC) 10 mg ORAL DAILY vancomycin 125 mg oral liquid (VANCOCIN) 125 mg ORAL QID nortriptyline 50 mg cap(s) (PAMELOR) 50 mg ORAL AT BEDTIME tiZANidine 4 mg tab(s) (ZANAFLEX) 4 mg ORAL TID PRN dextrose 40 % 15 g 15 g ORAL PRN glucagon 1 mg injection (GLUCAGEN) 1 mg INTRAMUSCULAR PRN dextrose 50% in water 25 mL syringe 12.5 g INTRAVENOUS PRN carvedilol 6.25 mg tab(s) (COREG) 6.25 mg ORAL BID w MEALS aspirin 81 mg chewable tab(s) 81 mg ORAL DAILY rosuvastatin 20 mg tab(s) (CRESTOR) 20 mg ORAL AT BEDTIME heparin 5,000 Units injection 5,000 Units SUBCUTANEOUS q 12 H insulin lispro injection (rapid acting) (HumaLOG) SUBCUTANEOUS w MEALS insulin lispro injection (rapid acting) (HumaLOG) SUBCUTANEOUS AT BEDTIME DATA Recent Labs 04/05/18 0531 04/04/18 0158 04/04/18 0008 WBC 11.15* 14.34* 17.22* HB 11.3* 10.8* 6.0* HCT 34.5* 33.6* 19.1* PLT 267 257 350 Recent Labs 04/05/18 0531 04/04/18 0008 NA 138 139 K 3.9 3.7 CO2 23 23 BUN 15 25* CREAT 0.79 0.95 GLUC 107* 130* MG -- 1.9 IMAGING Reviewed ASSESSMENT AND PLAN Rick George . is a 57 year old male w PMH of DM2 c/b neuropathy, HTN, HLD, PAD/PVD, and CVA who presented for evaluation for PCI vs CABG after an NSTEMI on 04/01/18. Pt has multivessel dz and DM2 so will likely go for CABG, however patient has at least one active infection, Cdiff and possible PNA. Will start CAD Rxs, prep for CABG, and treat/work up infections. PLAN FOR TODAY - TB with CTS re CABG plan next week - ID approves of CABG while on po vanc - Cont glargine at half home dose, follow BG - wound care on board for R heel ulcer from nail - Cont PT for L hip Neuro #Peripheral Neuropathy 2/2 DM2 Mild numbness in feet b/l Plan Cont Gabapentin ? CV #NSTEMI in s/o 3VDz Tn peak 6, BNP ~600 Plan CABG w/u complete, accepted by [facility] for surgery. Date depending on necessary treatement duraiton for c diff ? #CAD LMT 25% LAD Prox 85%, Dist 75% LCX Prox 75%, Dist 85% RCA 95% Plan ASA Hold Brillinta for upcoming CABG No heparin gtt given last CP on Tuesday, no current CP Coreg lisinopril Rosuvastatin. No signs of myopathy ? #HTN Plan Coreg lisinopril if BP room ? Pulmonary #pulmonary edema - resolved ? GI #Cdiff Pos test at OSH, pt received Flagyl Some improvement in frequency of diarrhea on Flagyl Plan Vancomycin tx length 10 days ? Endocrine #DM2 A1c ~6, c/b neuropathy Plan SSI Insulin ? Diet Hrt Healthy 2gNa DVT ppx - heparin sq GI ppx - not indicated Case to be discussed with staff Blanco Paul MD IM PGY1 [id number] [facility] STAFF PHYSICIAN NOTE OF PERSONAL INVOLVEMENT IN CARE IMPRESSION: Patient is a 57 year old male with: #Coronary artery disease status post NSTEMI and found to have severe multivessel disease (I have reviewed his cardiac catheterization and have uploaded to [employer]) #PAD #Diabetes mellitus #Prior CVA #Mixed hyperlipidemia #Current clostridium difficile infection ? PLAN: We appreciate the input of the CTS and ID teams. The ID team feels there is no contraindication for surgery at the current time since his diarrhea is much improved. So we will update the CTS team. Plan for CABG with Dr. Zhu as he sees fit. I have reviewed the documentation obtained and documented by the Resident and have reviewed and updated the problem list as appropriate. I have personally performed a face to face assessment of the patient and have personally participated in the rubi components. I have discussed the case and management of the patient's care. STAFF PHYSICIAN: Van Mcguire MD DATE OF SERVICE: April 08, 2018 TIME OF SERVICE: 11:46 AM Previous Version Marita Baptiste MD 04/08/2018 7:03 PM Signed INFECTIOUS DISEASE CONSULT SERVICE PROGRESS NOTE Date: April 08, 2018 Patient Name: Rick George Jr. Interval Events: Wbc normalized Afebrile 1 bm since I last saw hime Denies pain MEDICATIONS Medications reviewed. Current hospital medications: insulin glargine 10 Units pen (long acting) (LANTUS SOLOSTAR, BASAGLAR KWIKPEN) 10 Units SUBCUTANEOUS DAILY (8 AM) 0.9% NaCl 3-5 mL 3-5 mL INTRAVENOUS q 12 H benzonatate 100 mg cap(s) (TESSALON PERLE) 100 mg ORAL TID traMADol 50 mg tab(s) (ULTRAM) 50 mg ORAL q 6 H PRN gabapentin 800 mg tab(s) (NEURONTIN) 800 mg ORAL TID cetirizine 10 mg tab(s) (ZyrTEC) 10 mg ORAL DAILY vancomycin 125 mg oral liquid (VANCOCIN) 125 mg ORAL QID nortriptyline 50 mg cap(s) (PAMELOR) 50 mg ORAL AT BEDTIME tiZANidine 4 mg tab(s) (ZANAFLEX) 4 mg ORAL TID PRN dextrose 40 % 15 g 15 g ORAL PRN glucagon 1 mg injection (GLUCAGEN) 1 mg INTRAMUSCULAR PRN dextrose 50% in water 25 mL syringe 12.5 g INTRAVENOUS PRN carvedilol 6.25 mg tab(s) (COREG) 6.25 mg ORAL BID w MEALS aspirin 81 mg chewable tab(s) 81 mg ORAL DAILY rosuvastatin 20 mg tab(s) (CRESTOR) 20 mg ORAL AT BEDTIME heparin 5,000 Units injection 5,000 Units SUBCUTANEOUS q 12 H insulin lispro injection (rapid acting) (HumaLOG) SUBCUTANEOUS w MEALS insulin lispro injection (rapid acting) (HumaLOG) SUBCUTANEOUS AT BEDTIME EXAMINATION: Vital signs: BP 104/68 Pulse 77 Temp 36.7 ?C (98 ?F) (Oral) Resp 16 Ht 177.8 cm (5' 10) Wt 89.1 kg (196 lb 8 oz) SpO2 97% BMI 28.19 kg/m? Temp (24hrs), Av.7 ?C (98.1 ?F), Min:36.5 ?C (97.7 ?F), Max:36.9 ?C (98.5 ?F) GENERAL APPEARANCE:alert, in no acute distress SKIN: negative HEAD/SINUSES: No significant findings. EYES: PERRLA, conjunctiva clear LUNGS: Clear to auscultation, No crackles. HEART: Regular rate and rhythm ABDOMEN: Soft, Non-tender, Nondistended, Normal bowel sounds EXTREMITIES: negative edema NEURO: Awake, alert and oriented x 3, no involuntary motions. LABORATORY DATA: WBC (k/uL) Date Value 04/08/2018 8.06 04/07/2018 11.56 04/06/2018 11.83 Hemoglobin (g/dL) Date Value 04/08/2018 11.2 04/07/2018 11.0 04/06/2018 10.8 Platelet Count (k/uL) Date Value 04/08/2018 356 04/07/2018 327 04/06/2018 305 Creatinine (mg/dL) Date Value 04/08/2018 0.95 04/07/2018 0.89 04/06/2018 0.81 MICROBIOLOGY DATA: reviewed IMAGING DATA: Films personally reviewed. ASSESSMENT/RECOMMENDATIONS: Recent treatment for staph abscess after stepping on nail. Treated with antibiotics and improved about 3 weeks ago no further symptoms Had recent episode of severe coughing after exposure to possibly moldy hay--now resolved ?hypersensitivity c diff--per patient had about 20 bms/day prior to calling PCP and treated with flagyl--stool became more solidified, decreased frequency on Tues Now having more solid stools ~ 1 daily ? Main concern in setting of c diff--frequent BMs in setting of surgery--this has improved. Small risk of worsening with perioperative antibiotcs, maintain oral vanco Foot infection--resolved ? Continue PO vancomycin--standard treatment course is 10 days, however given patient will need perioperative antibiotics in setting of cardiac surgery will maintain oral vancomycin through planned surgery No ID contraindication to planned surgery at this time Marita Baptiste MD Staff physician Infectious Diseases Pager: [phone] Date and Time of Service: April 08, 2018 / Van Mcguire MD 04/09/2018 11:06 AM Addendum [facility] PROGRESS NOTE (Template ID [id number]) Rick George Jr. [id number] PRIMARY SERVICE: [facility] A HOSPITAL DAY: # 5 INTERVAL HISTORY NAEO Patient states BM normal -1.2L negative yesterday Awaiting surgical plan PHYSICAL EXAM BP 104/66 Pulse 65 Temp 36.7 ?C (98 ?F) (Oral) Resp 16 Ht 177.8 cm (5' 10) Wt 89.2 kg (196 lb 9.6 oz) SpO2 97% BMI 28.21 kg/m? Intake/Output Summary (Last 24 hours) at 04/09/18 1048 Last data filed at 04/09/18 0832 Gross per 24 hour Intake 240 ml Output 2200 ml Net -1960 ml General Appearance: Well developed, Well nourished , NAD HEENT: PERRLA, EOM's intact, Sclera anicteric, Fair dentition and JVD - no Lungs: soft Crackles b/l bases Heart: Regular rate AND rhythm, nml S1, S2, no m/r/g Abdomen: Soft, Non-tender and Bowel sounds present Skin: Warm and Dry Musculoskeletal: No deformities and No joint deformities Neurologic/Psychiatric: Oriented to time, place AND person MEDICATIONS Current hospital medications: insulin glargine 10 Units pen (long acting) (LANTUS SOLOSTAR, BASAGLAR KWIKPEN) 10 Units SUBCUTANEOUS DAILY (8 AM) 0.9% NaCl 3-5 mL 3-5 mL INTRAVENOUS q 12 H benzonatate 100 mg cap(s) (TESSALON PERLE) 100 mg ORAL TID traMADol 50 mg tab(s) (ULTRAM) 50 mg ORAL q 6 H PRN gabapentin 800 mg tab(s) (NEURONTIN) 800 mg ORAL TID cetirizine 10 mg tab(s) (ZyrTEC) 10 mg ORAL DAILY vancomycin 125 mg oral liquid (VANCOCIN) 125 mg ORAL QID nortriptyline 50 mg cap(s) (PAMELOR) 50 mg ORAL AT BEDTIME tiZANidine 4 mg tab(s) (ZANAFLEX) 4 mg ORAL TID PRN dextrose 40 % 15 g 15 g ORAL PRN glucagon 1 mg injection (GLUCAGEN) 1 mg INTRAMUSCULAR PRN dextrose 50% in water 25 mL syringe 12.5 g INTRAVENOUS PRN carvedilol 6.25 mg tab(s) (COREG) 6.25 mg ORAL BID w MEALS aspirin 81 mg chewable tab(s) 81 mg ORAL DAILY rosuvastatin 20 mg tab(s) (CRESTOR) 20 mg ORAL AT BEDTIME heparin 5,000 Units injection 5,000 Units SUBCUTANEOUS q 12 H insulin lispro injection (rapid acting) (HumaLOG) SUBCUTANEOUS w MEALS insulin lispro injection (rapid acting) (HumaLOG) SUBCUTANEOUS AT BEDTIME DATA Recent Labs 04/05/18 0531 04/04/18 0158 04/04/18 0008 WBC 11.15* 14.34* 17.22* HB 11.3* 10.8* 6.0* HCT 34.5* 33.6* 19.1* PLT 267 257 350 Recent Labs 04/05/18 0531 04/04/18 0008 NA 138 139 K 3.9 3.7 CO2 23 23 BUN 15 25* CREAT 0.79 0.95 GLUC 107* 130* MG -- 1.9 IMAGING Reviewed ASSESSMENT AND PLAN Rick George Jr. is a 57 year old male w PMH of DM2 c/b neuropathy, HTN, HLD, PAD/PVD, and CVA who presented for evaluation for PCI vs CABG after an NSTEMI on 04/01/18. Pt has multivessel dz and DM2 so will likely go for CABG, however patient has at least one active infection, Cdiff and possible PNA. Will start CAD Rxs, prep for CABG, and treat/work up infections. PLAN FOR TODAY - Follow up CTS plans for surgery - ID approves of CABG while on po vanc - Cont glargine at half home dose, follow BG - wound care on board for R heel ulcer from nail - Cont PT for L hip - IV LR today to keep net even Neuro #Peripheral Neuropathy 2/2 DM2 Mild numbness in feet b/l Plan Cont Gabapentin ? CV #NSTEMI in s/o 3VDz Tn peak 6, BNP ~600 Plan CABG w/u complete, accepted by [facility] for surgery. Date depending on necessary treatement duraiton for c diff ? #CAD LMT 25% LAD Prox 85%, Dist 75% LCX Prox 75%, Dist 85% RCA 95% Plan ASA Hold Brillinta for upcoming CABG No heparin gtt given last CP on Tuesday, no current CP Coreg lisinopril Rosuvastatin. No signs of myopathy ? #HTN Plan Coreg lisinopril if BP room ? Pulmonary #pulmonary edema - resolved ? GI #Cdiff Pos test at OSH, pt received Flagyl Some improvement in frequency of diarrhea on Flagyl Plan Vancomycin tx length 10 days ? Endocrine #DM2 A1c ~6, c/b neuropathy Plan SSI Insulin ? Diet Hrt Healthy 2gNa DVT ppx - heparin sq GI ppx - not indicated Case to be discussed with staff Froylan Watters MD IM PGY-2 04/09/2018 [facility] STAFF PHYSICIAN NOTE OF PERSONAL INVOLVEMENT IN CARE IMPRESSION: Patient is a 57 year old male with: #Coronary artery disease status post NSTEMI and found to have severe multivessel disease (I have reviewed his cardiac catheterization and have uploaded to [employer]) #PAD #Diabetes mellitus #Prior CVA #Mixed hyperlipidemia #Current clostridium difficile infection ? PLAN: We appreciate the input of the CTS and ID teams. The ID team feels there is no contraindication for surgery at the current time since his diarrhea is much improved. So we will update the CTS team. Plan for CABG with Dr. Zhu as he sees fit. Continue course of PO vancomycin in the meantime. I have reviewed the documentation obtained and documented by the Resident and have reviewed and updated the problem list as appropriate. I have personally performed a face to face assessment of the patient and have personally participated in the rubi components. I have discussed the case and management of the patient's care. STAFF PHYSICIAN: Van Mcguire MD DATE OF SERVICE: April 09, 2018 TIME OF SERVICE: 11:05 AM Previous Version Zoe Rodriguez MD 2018 12:18 PM Signed [facility] PROGRESS NOTE (Template ID [id number]) Rick George Jr. [id number] PRIMARY SERVICE: [facility] A HOSPITAL DAY: # 6 INTERVAL HISTORY NAEO Pt restless, wants to know when CABG Patient states BM normal, no cough, no CP -3L negative yesterday wo diuresis, likely I/O mistake Awaiting surgical plan PHYSICAL EXAM BP 111/67 Pulse 79 Temp 36.6 ?C (97.9 ?F) (Oral) Resp 18 Ht 177.8 cm (5' 10) Wt 88.4 kg (194 lb 12.8 oz) SpO2 98% BMI 27.95 kg/m? Intake/Output Summary (Last 24 hours) at 04/10/18 0841 Last data filed at 04/10/18 0736 Gross per 24 hour Intake 120 ml Output 3775 ml Net -3655 ml General Appearance: Well developed, Well nourished , NAD HEENT: PERRLA, EOM's intact, Sclera anicteric, Fair dentition and JVD - no Lungs: soft Crackles b/l bases Heart: Regular rate AND rhythm, nml S1, S2, no m/r/g Abdomen: Soft, Non-tender and Bowel sounds present Skin: Warm and Dry Musculoskeletal: No deformities and No joint deformities Neurologic/Psychiatric: Oriented to time, place AND person MEDICATIONS Current hospital medications: NaCl 0.9% 1,000 mL iv bolus 1,000 mL INTRAVENOUS ONCE insulin glargine 10 Units pen (long acting) (LANTUS SOLOSTAR, BASAGLAR KWIKPEN) 10 Units SUBCUTANEOUS DAILY (8 AM) 0.9% NaCl 3-5 mL 3-5 mL INTRAVENOUS q 12 H benzonatate 100 mg cap(s) (TESSALON PERLE) 100 mg ORAL TID traMADol 50 mg tab(s) (ULTRAM) 50 mg ORAL q 6 H PRN gabapentin 800 mg tab(s) (NEURONTIN) 800 mg ORAL TID cetirizine 10 mg tab(s) (ZyrTEC) 10 mg ORAL DAILY vancomycin 125 mg oral liquid (VANCOCIN) 125 mg ORAL QID nortriptyline 50 mg cap(s) (PAMELOR) 50 mg ORAL AT BEDTIME tiZANidine 4 mg tab(s) (ZANAFLEX) 4 mg ORAL TID PRN dextrose 40 % 15 g 15 g ORAL PRN glucagon 1 mg injection (GLUCAGEN) 1 mg INTRAMUSCULAR PRN dextrose 50% in water 25 mL syringe 12.5 g INTRAVENOUS PRN carvedilol 6.25 mg tab(s) (COREG) 6.25 mg ORAL BID w MEALS aspirin 81 mg chewable tab(s) 81 mg ORAL DAILY rosuvastatin 20 mg tab(s) (CRESTOR) 20 mg ORAL AT BEDTIME heparin 5,000 Units injection 5,000 Units SUBCUTANEOUS q 12 H insulin lispro injection (rapid acting) (HumaLOG) SUBCUTANEOUS w MEALS insulin lispro injection (rapid acting) (HumaLOG) SUBCUTANEOUS AT BEDTIME DATA Recent Labs 04/05/18 0531 04/04/18 0158 04/04/18 0008 WBC 11.15* 14.34* 17.22* HB 11.3* 10.8* 6.0* HCT 34.5* 33.6* 19.1* PLT 267 257 350 Recent Labs 04/05/18 0531 04/04/18 0008 NA 138 139 K 3.9 3.7 CO2 23 23 BUN 15 25* CREAT 0.79 0.95 GLUC 107* 130* MG -- 1.9 IMAGING Reviewed ASSESSMENT AND PLAN Rick George Jr. is a 57 year old male w PMH of DM2 c/b neuropathy, HTN, HLD, PAD/PVD, and CVA who presented for evaluation for PCI vs CABG after an NSTEMI on 04/01/18. Pt has multivessel dz and DM2 so will likely go for CABG, however patient has at least one active infection, Cdiff and possible PNA. Will start CAD Rxs, prep for CABG, and treat/work up infections. PLAN FOR TODAY - Follow up CTS plans for surgery - page EDUARDO [facility] - Hold IVF today as I/Os are likely incorrect, will fup w RN - ID approves of CABG while on po vanc - Cont glargine at half home dose, follow BG - wound care on board for R heel ulcer from nail - Cont PT for L hip Neuro #Peripheral Neuropathy 2/2 DM2 Mild numbness in feet b/l Plan Cont Gabapentin ? CV #NSTEMI in s/o 3VDz Tn peak 6, BNP ~600 Plan CABG w/u complete, accepted by [facility] for surgery. Date depending on necessary treatement duraiton for c diff ? #CAD LMT 25% LAD Prox 85%, Dist 75% LCX Prox 75%, Dist 85% RCA 95% Plan ASA Hold Brillinta for upcoming CABG No heparin gtt given last CP on Tuesday, no current CP Coreg lisinopril Rosuvastatin. No signs of myopathy ? #HTN Plan Coreg lisinopril if BP room ? Pulmonary #pulmonary edema - resolved ? GI #Cdiff Pos test at OSH, pt received Flagyl Some improvement in frequency of diarrhea on Flagyl Plan Vancomycin tx length 10 days ? Endocrine #DM2 A1c ~6, c/b neuropathy Plan SSI Insulin ? Diet Hrt Healthy 2gNa DVT ppx - heparin sq GI ppx - not indicated Case to be discussed with staff Blanco Paul MD IM PGY-1 pgr [id number] [facility] STAFF PHYSICIAN NOTE OF PERSONAL INVOLVEMENT IN CARE Impression/Plan: Mr. 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 Zhu, hopefully this week. I have reviewed the documentation obtained and documented by the Fellow/Resident/COMPUTER FORENSICS EXAMINER/PA and have reviewed and updated the problem list as appropriate. I have personally performed a face to face assessment of the patient and have personally participated in the rubi components. I have discussed the case and management of the patient's care. STAFF PHYSICIAN: Zoe Rodriguez MD Date of Service: 04/10/18 Previous Version Fabiola Anders RN, RN 2018 12:01 PM Signed CARE MANAGEMENT PROGRESS NOTE SERVICE DATE: 2018 SERVICE TIME: 11:53 AM LOS: 6 days Needs Prior to Discharge: To Be Determined PT evaluation indicates recommendation for OP PT. CTS evaluation for surgery - awaiting surgical plan/date. Will follow and plan for discharge accordingly. SIGNATURE: Fabiola Anders RN PATIENT NAME: Rick George Jr. DATE: 2018 TIME: 11:53 AM PAGER/CONTACT #: [phone] Mercedes Montalvo RN LANDSCAPE CONTRACTOR.TRACK LABORER 2018 5:44 PM Addendum [facility] PROGRESS NOTE Rick George Jr. [id number] CTS staff Dr. Sammy Zhu Intended surgery: CABG PI: Conduit: Right HAND DOMINANT: poor PI 10%/poor waveform Left PI: unusable prior radial artery surgery. Per Dr. Zhu surgery: this Thursday 04/12 , confirmed with CT maintenance scheduler Preop testing is complete. Cleared by ID to proceed with surgery. Normal BM. I have updated Dr. Sims and CTS maintenance scheduler that patient is ready for surgery. ASSESSMENT AND PLAN: Problem Preop Testing [facility] PRE-OP CHECKLIST Surgeon: Sammy Zhu M.D. Informed Consent Completed: No STS Score: CABG 1.5% mortality risk CAD: Yes - CAD on Problem List: Yes Is intended procedure a CABG: Yes - is a beta kurt ordered? Yes H AND P completed: Yes PA/LAT: Completed CT: Completed MRI: Completed LE US: Completed Cath: Yes - reviewed: Yes Echo:Completed EKG: Completed EF %: 57 PI's: N/A Carotid: Completed Mapping: Completed Dental: N/A PFT's: Completed CBC, Coags, BMP, Mg, Phos Recent Labs 04/10/18 0612 04/09/18 0345 04/08/18 0706 WBC 9.06 9.28 8.06 HB 11.3* 10.8* 11.2* HCT 36.0* 34.6* 35.5* PLT 384 362 356 INR -- 1.0 1.0 NA 142 138 141 K 5.5* 5.1 4.3 CHLOR 100 99 102 CO2 32* 25 29 BUN 11 12 10 CREAT 0.99 0.90 0.95 GLUC 115* 155* 106* CA 9.8 9.2 8.7 UA: Normal HCG:N/A ABO/ABO Confirmed: Yes Blood ordered: No SA Swab: Yes - results: Pending Last Dose of Anticoagulation: Aspirin and Heparin Op Note: No Pacemaker Check: No Implants: no Consults: ID DM: yes Cardiac Surgical prep: Yes SIGNATURE: Mercedes Montalvo RN LANDSCAPE CONTRACTOR.TRACK LABORER CHECKED BY: DATE of SERVICE: 2018 TIME of SERVICE: 11:17 AM SIGNATURE: Mercedes Montalvo RN APRN.TRACK LABORER PAGER:[phone] DATE of SERVICE: 2018 TIME of SERVICE: 12:46 PM Previous Version Zoe Rodriguez MD 04/11/2018 10:18 AM Signed [facility] CARDIOVASCULAR MEDICINE PROGRESS NOTE (Template ID [id number]) Rick George Jr. [id number] PRIMARY SERVICE: [facility] Clinical Cardiology A HOSPITAL DAY: # 7 INTERVAL HISTORY NAEO, no new complaints Still with some L rib pain Still with polyuria OR for CABG with Dr. Zhu tomorrow per cardiac surgery recs PHYSICAL EXAM BP 102/61 Pulse 76 Temp 36.5 ?C (97.7 ?F) (Oral) Resp 16 Ht 177.8 cm (5' 10) Wt 88.3 kg (194 lb 11.2 oz) SpO2 97% BMI 27.94 kg/m? Intake/Output Summary (Last 24 hours) at 04/11/18 1007 Last data filed at 04/10/18 2153 Gross per 24 hour Intake 240 ml Output 2350 ml Net -2110 ml General Appearance: Well developed, Well nourished , NAD HEENT: PERRLA, EOM's intact, Sclera anicteric, Fair dentition and JVD - no Lungs: CTAB no crackles today Heart: Regular rate AND rhythm, nml S1, S2, no m/r/g Abdomen: Soft, Non-tender and Bowel sounds present Skin: Warm and Dry Musculoskeletal: no LE edema Neurologic/Psychiatric: Oriented to time, place AND person MEDICATIONS Current hospital medications: insulin lispro injection (rapid acting) (HumaLOG) SUBCUTANEOUS w MEALS insulin lispro injection (rapid acting) (HumaLOG) SUBCUTANEOUS AT BEDTIME insulin glargine 10 Units pen (long acting) (LANTUS SOLOSTAR, BASAGLAR KWIKPEN) 10 Units SUBCUTANEOUS DAILY (8 AM) 0.9% NaCl 3-5 mL 3-5 mL INTRAVENOUS q 12 H benzonatate 100 mg cap(s) (TESSALON PERLE) 100 mg ORAL TID traMADol 50 mg tab(s) (ULTRAM) 50 mg ORAL q 6 H PRN gabapentin 800 mg tab(s) (NEURONTIN) 800 mg ORAL TID cetirizine 10 mg tab(s) (ZyrTEC) 10 mg ORAL DAILY vancomycin 125 mg oral liquid (VANCOCIN) 125 mg ORAL QID nortriptyline 50 mg cap(s) (PAMELOR) 50 mg ORAL AT BEDTIME tiZANidine 4 mg tab(s) (ZANAFLEX) 4 mg ORAL TID PRN dextrose 40 % 15 g 15 g ORAL PRN glucagon 1 mg injection (GLUCAGEN) 1 mg INTRAMUSCULAR PRN dextrose 50% in water 25 mL syringe 12.5 g INTRAVENOUS PRN carvedilol 6.25 mg tab(s) (COREG) 6.25 mg ORAL BID w MEALS aspirin 81 mg chewable tab(s) 81 mg ORAL DAILY rosuvastatin 20 mg tab(s) (CRESTOR) 20 mg ORAL AT BEDTIME heparin 5,000 Units injection 5,000 Units SUBCUTANEOUS q 12 H DATA Recent Labs 04/05/18 0531 04/04/18 0158 04/04/18 0008 WBC 11.15* 14.34* 17.22* HB 11.3* 10.8* 6.0* HCT 34.5* 33.6* 19.1* PLT 267 257 350 Recent Labs 04/05/18 0531 04/04/18 0008 NA 138 139 K 3.9 3.7 CO2 23 23 BUN 15 25* CREAT 0.79 0.95 GLUC 107* 130* MG -- 1.9 IMAGING Reviewed ASSESSMENT AND PLAN Rick George Jr. is a 57 year old male w PMH of DM2 c/b neuropathy, HTN, HLD, PAD/PVD, and CVA who presented for evaluation for PCI vs CABG after an NSTEMI on 04/01/18. Pt has multivessel dz and DM2 so will likely go for CABG, however patient has at least one active infection, Cdiff and possible PNA. Will start CAD Rxs, prep for CABG, and treat/work up infections. PLAN FOR TODAY - CABG tomorrow - check urine osmoles for polyuria - Cont glargine at half home dose, follow BG - wound care on board for R heel ulcer from nail - Cont PT for L hip Neuro #Peripheral Neuropathy 2/2 DM2 Mild numbness in feet b/l Plan Cont Gabapentin ? CV #NSTEMI in s/o 3VDz Tn peak 6, BNP ~600 Had J point elevations on ECG yesterday, stable today Plan CABG w/u complete, accepted by [facility] for surgery. Date depending on necessary treatement duraiton for c diff Colton given J point elevation ? #CAD LMT 25% LAD Prox 85%, Dist 75% LCX Prox 75%, Dist 85% RCA 95% Plan ASA Hold Brillinta for upcoming CABG No heparin gtt given last CP on Tuesday, no current CP Coreg lisinopril Rosuvastatin. No signs of myopathy ? #HTN Plan Coreg lisinopril ? Pulmonary #pulmonary edema - resolved ? GI #Cdiff Pos test at OSH, pt received Flagyl Some improvement in frequency of diarrhea on Flagyl Plan Vancomycin tx length 10 days ? Endocrine #DM2 A1c ~6, c/b neuropathy Plan SSI Insulin ? Renal #polyuria - over 3L UOP yesterday - glucose well controlled, no JUAN, no uremia, no mannitol. IVF have been held PLAN - urine osmoles Diet Hrt Healthy 2g Na - NPO at midnight DVT ppx - heparin sq GI ppx - not indicated Case to be discussed with staff Arturo Mcmahan PGY-2, Internal Medicine [id number] [facility] STAFF PHYSICIAN NOTE OF PERSONAL INVOLVEMENT IN CARE Impression/Plan: Mr. 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 Zhu, possibly tomorrow. I have reviewed the documentation obtained and documented by the Fellow/Resident/COMPUTER FORENSICS EXAMINER/PA and have reviewed and updated the problem list as appropriate. I have personally performed a face to face assessment of the patient and have personally participated in the rubi components. I have discussed the case and management of the patient's care. STAFF PHYSICIAN: Zoe Rodriguez MD Date of Service: 04/11/18 Previous Version Mercedes Montalvo RN LANDSCAPE CONTRACTOR.TRACK LABORER 04/11/2018 10:16 AM Signed [facility] VASCULAR [facility] PROGRESS NOTE Rick Hope Doris Gillis [id number] CTS staff Dr. Sims Intended surgery: CABG Date of surgerry: Tomorrow 2nd round. Patient is aware. Dr. Zhu to see patient prior to surgery. Update type and screen CT anesthesia to see patient ASSESSMENT AND PLAN: Problem Preop Testing [facility] PRE-OP CHECKLIST Surgeon: Sammy Zhu M.D. Informed Consent Completed: No STS Score: CABG 1.5% mortality risk CAD: Yes - CAD on Problem List: Yes Is intended procedure a CABG: Yes - is a beta kurt ordered? Yes H AND P completed: Yes PA/LAT: Completed CT: Completed MRI: Completed LE US: Completed Cath: Yes - reviewed: Yes Echo:Completed EKG: Completed EF %: 57 PI's: checked poor Carotid: Completed Mapping: Completed Dental: N/A PFT's: Completed CBC, Coags, BMP, Mg, Phos Recent Labs 04/11/18 0542 04/10/18 1924 04/10/18 0612 04/09/18 0345 WBC 9.16 -- 9.06 9.28 HB 11.8* -- 11.3* 10.8* HCT 37.4* -- 36.0* 34.6* PLT 382 -- 384 362 INR 1.0 -- -- 1.0 NA 142 139 142 138 K 4.1 5.7* 5.5* 5.1 CHLOR 101 100 100 99 CO2 31* 31* 32* 25 BUN 13 15 11 12 CREAT 0.96 1.09 0.99 0.90 GLUC 106* 252* 115* 155* CA 9.4 9.7 9.8 9.2 UA: Normal HCG:N/A ABO/ABO Confirmed: Yes Blood ordered: No SA Swab: Yes - results: Pending Last Dose of Anticoagulation: Aspirin and Heparin Op Note: No Pacemaker Check: No Implants: no Consults: ID DM: yes Cardiac Surgical prep: Yes SIGNATURE: Mercedes Montalvo RN LANDSCAPE CONTRACTOR.TRACK LABORER CHECKED BY: DATE of SERVICE: 2018 TIME of SERVICE: 11:17 AM I Informed patient what to expect pre/post operatively Stressed to patient the importance of pain control for successful recovery: INFORMED OF IMPORTANCE OF GOOD PAIN [id number] for pain medication early when pain level is 2/0-10Informed patient (and family) what to expect pre/post operatively IMPORTANCE OF PAIN [id number] for pain medication early, take pain medication routinely to have adquate pain control to prevent postop complications ie Pneumonia, Deep Vein Thrombosis, Delayed Wound Healing, Longer Hospital Stay. Explained importance of Deep Breathing/Coughing before and after surgery pain scale, take pain medication routinely to have adquate pain control to prevent postop complications for example,? Pneumonia, Deep Vein Thrombosis, Delayed Wound Healing, Longer Hospital Stay. ? Explained the importance of Bowel Maintenance-taking stool softners (or laxatives if indicated) to maintain regular bowel movements while on pain medication. Informed of benefits of adequate pain control- taking pain medication when pain level is -ask for pain medication; Inform pt may want to ask for pain medication around the clock/routinely on first postop Day on Regular Nursing Floor- thereby promoting recovery;-able to breathe deeply and adequately thus decrease Oxygen requirements of body, Able to walk, get out of bed- thereby decrease recovery time and decreased risk for infection. Explained importance of Deep Breathing/Coughing before and after surgery Instructed in breathing exercises-deep breaths 10 times/hour while awake. Pt verbalized understanding and demostrated understanding via return demonstration. Discussed discharged plans-informed patient , a Cardiac Surgery Nurse Practitioner visit is recommended within 3-7 days after being discharged if lived in near [place], [place] area or within [address] of [place], [place]. Discussed with Patient (Family) will need to see their PCP and Key Holder? following discharged- specific time frames for postop visits for Cardiac Surgery Nurse Practitioner, PCP and Key Holder will be discussed at time of discharged. Patient (Family) Verbalized understanding. SIGNATURE: Mercedes Montalvo RN LANDSCAPE CONTRACTOR.TRACK LABORER PAGER: [phone] DATE of SERVICE: 04/11/2018 TIME of SERVICE:10:16 AM Fernando Schneider DO 04/11/2018 5:12 PM Signed [facility] PREOP EVALUATION CARDIOTHORACIC ANESTHESIA CARDIAC SURGERY SERVICE DATE: 04/11/2018 SERVICE TIME: 4:00 PM Proposed Surgical Procedure: CABG Re-do: No ASA Class: 4 Surgeon: Marko Surgery Date: 04/12/18 Last Wt 04/11/18 : 88.3 kg (194 lb 11.2 oz) Last Ht 04/03/18 : 177.8 cm (5' 10) Estimated body mass index is 27.94 kg/m? as calculated from the following: Height as of this encounter: 177.8 cm (5' 10). Weight as of this encounter: 88.3 kg (194 lb 11.2 oz). Estimated body surface area is 2.09 meters squared as calculated from the following: Height as of this encounter: 177.8 cm (5' 10). Weight as of this encounter: 88.3 kg (194 lb 11.2 oz). HPI: CAD, PAD/PVD, CVA. Diabetic retinopathy, DM, Polyneuropathy, ulnar neuropathy, Current C. Diff. He has been coughing for the past week. LHC on 04/03/18 w LMT 25%, Prox LAD 85%, Dist LAD 75%, Prox LCX 75%, Mid LCX 85%, Ramus diffuse dz, and RCA 95%. PAST MEDICAL HISTORY Diagnosis Date - Cataract b/l, eye exam 05/29/13 - CTS (carpal tunnel syndrome) 10/2013 b/l, chronic, Dr. 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 Mazin Hinojosa Neuro, likely from DM and Vitamin B12 defic - Stroke ([facility]) 10/01/13 - Ulnar neuropathy 10/2013 b/l, chronic, Dr. Mazin Hinojosa EMG - Vitamin D deficiency 11/2013 PAST SURGICAL HISTORY Procedure Laterality Date - DISCISSION,2ND CATARACT,LASER 06/07/2013 Yag Capsulotomy-Right eye - LASER, SECONDARY CATARACT 2006 OU - PAST SURGICAL HISTORY OF 02/2013 Amputation Right Gt toe FAMILY HISTORY Problem Relation Age of Onset - Diabetes Mother - Heart Father Social History Substance Use Topics - Smoking status: Never Smoker - Smokeless tobacco: Former User Types: Chew - Alcohol use 12.0 oz/week 8 Cans of Beer (12oz) per week Comment: 1-2 per day ALLERGIES Allergen Reactions - Lipitor [Atorvastat* Contraindication-Medical Surgical Elevated LFTs and elevated CK level - Metformin Diarrhea REVIEW OF SYSTEMS: Neuro: CVA with pain on his left side form his shoulder down to his feet. He still has strength in his left side. Respiratory: Cough, pulmonary edema per cxr. Cardiovascular: See HPI GI: See HPI Endocrine: No history of diabetes. Has not taken steroids within the past 30 days. No history of endocrinological symptoms or problems. Hematology: See HPI CKD AND ANEMIA ASSESSMENT: Patient has both eGFR < 60 mL/min and a Hemoglobin < 11 g/dl: No if the patient is going on CPB. ANESTHETIC HISTORY: History of general anesthesia without complications. AIRWAY ASSESSMENT: Airway History: No abnormal airway history Airway Exam: General: Normal appearance Mallampati Score: CLASS I Poor dentition, cracked wisdom teeth. Temporo-Mandibular Displacement Test: Position A (lower teeth can be advanced beyond upper teeth) Interincisor Distance: 6 cm Thyromental Distance: 8 cm Neck Circumference: 40 cm Overbite: No Cervical Mobility: Normal Facial Hair: Yes, Full Packer-No Head/Neck Pathology: Yes, Si ANTICIPATED DIFFICULT AIRWAY: POSSIBLY, Would take care in positioning his neck. Pre-Existing Diagnosis of Obstructive Sleep Apnea: No, STOP BANG SCORE: Criteria = VARSHA does not use CPAP/BiPAP, Score = 5 PHYSICAL EXAM: VITALS: BP 139/72 Pulse 88 Temp 36.7 ?C (98.1 ?F) (Oral) Resp 16 Ht 177.8 cm (5' 10) Wt 88.3 kg (194 lb 11.2 oz) SpO2 100% BMI 27.94 kg/m? CARDIAC: Regular rate and rhythm. LUNGS: Not assessed. Lines, Drains, Airway: Peripheral IV O2 Therapy: Room Air (04/11/18 1440) LABS: Lab Results Past 6 Months Component Value Date HB 11.8 (L) 04/11/2018 HCT 37.4 (L) 04/11/2018 PLT 382 04/11/2018 WBC 9.16 04/11/2018 NA 142 04/11/2018 K 4.1 04/11/2018 CREAT 0.96 04/11/2018 CA 9.4 04/11/2018 APTT 25.6 04/05/2018 INR 1.0 04/11/2018 HBA1C 5.7 (H) 04/04/2018 TSH 2.410 04/04/2018 Lab Results Past 6 Months Component Value Date GLUC 106 (H) 04/11/2018 K 4.1 04/11/2018 NA 142 04/11/2018 CHLOR 101 04/11/2018 CO2 31 (H) 04/11/2018 CREAT 0.96 04/11/2018 BUN 13 04/11/2018 ANION 10 04/11/2018 CA 9.4 04/11/2018 TPROT 6.6 04/09/2018 ALB 3.2 (L) 04/09/2018 TBILI 0.2 04/09/2018 ALKPHOS 62 04/09/2018 AST 39 04/09/2018 ALT 37 04/09/2018 ABO/RH(D) (no units) Date Value 04/04/2018 B POSITIVE Antibody Screen (no units) Date Value 04/04/2018 NEG Historical Ab Scr Status (no units) Date Value 04/11/2018 NEGATIVE Anticipated Blood Products Ordered: No blood product orders needed. Will the Patient Accept Blood: Yes IMAGING AND TESTS: MRI neck 2016 IMPRESSION: 1. ?C3 through C7 spondylosis as detailed. 2. ?Mild to moderate right neural foramina narrowing at C3-4. 3. ?No additional significant canal or foramen disease. ECG 04/11/2018: ? Diagnosis:NORMAL SINUS RHYTHM CANNOT EXCLUDE ANTERIOR MYOCARDIAL INFARCTION , AGE UNDETERMINED ABNORMAL ECG ? Carotid Dup 04/04 RIGHT SIDE ? Common carotid artery: Plaque visualized without evidence of hemodynamically significant stenosis. ? Internal carotid artery: 20-39% stenosis. ? Vertebral artery: Patent and antegrade flow noted. ? LEFT SIDE ? Common carotid artery: Plaque visualized without evidence of hemodynamically significant stenosis. ? Internal carotid artery: 20-39% stenosis. ? Vertebral artery: Patent and antegrade flow noted. 04/04: Echo ? CONCLUSIONS: - Exam indication: CAD - The left ventricle is normal in size. Left ventricular systolic function is normal. EF = 57 ? 5% (2D biplane) Normal left ventricular diastolic function. GLS= ?-16.9%. - The right ventricle is normal in size. Right ventricular systolic function is normal. Cardiac CT: 04/04 RESULT: CHEST: Chest wall anatomy: unremarkable Lungs: breathing artifact - ?small bilateral pleural effusions with adjacent atelectasis, ?? ?Non-calcified 2 mm ? ? nodule right middle ?lung lobe (Image # [id number]) Incidental Finding: ?No follow-up imaging for this incidentally detected lung nodule is recommended. Mediastinum: mediastinal lymph nodes, which are not pathologic by size criteria Pericardium: unremarkable Central pulmonary artery: normal dimensions, assessment is limited due to lack of contrast enhancement CARDIAC CHAMBERS: assessment is limited in the non-contrast enhanced study Overall normal dimensions CENTRAL VENOUS and PULMONARY VENOUS RETURN: normal Coronary Sinus: normal dimensions MITRAL VALVE: Mild inferior mitral annular calcification and subvalvular calcification CORONARY ANATOMY: Normal origin of the coronary arteries Diffuse, calcified atherosclerotic changes of the coronary arteries, precluding precise assessment with CT. - [place] AMOS and ARAVIND are normal size vessels ?without evidence of calcified atherosclerotic changes. AORTA AORTIC VALVE: Assessment is limited in the current study; minimal leaflet calcification AORTIC ROOT: upper normal size; Diameter: 3.7 cm Sinotubular Junction: maintained; mild calcification ASCENDING THORACIC AORTA: normal size; Diameter: 3.4 cm ?; no calcification Aortic Arch: normal size; Maximum Diameter: 2.9 cm ?; mild distal calcification ?? ?Arch Branch Vessels: normal size; assessment for patency is not possible in the non-contrast enhanced study; mild proximal calcification; Descending Thoracic Aorta: normal size; ?mild calcification; Relationship OF CARDIOVASCULAR STRUCTURES TO STERNUM: The left brachio-cephalic vein lies ? ? immediately behind the manubrium sternum. AORTIC CALCIFICATION: see above. mild posterior calcification of the ascending thoracic aorta AORTIC ARCH BRANCH VESSELS: see above. ?Mid and distal subclavian arteries: normal size vessels without evidence of calcification Assessment of patency is not possible in a non-contrast study PFT 04/05 IMPRESSION: Spirometry shows no obstruction. The reduced FVC suggests restriction. Recommend lung volumes if clinically indicated. CXR 04/04 RESULT: Lines, tubes, and devices: ?None. Lungs and pleura: ?Lung volumes are low. ?There are bilateral thickened interstitial opacities with blurring of the vascular margins and peribronchial cuffing, most consistent with pulmonary edema. ?Atypical infection can have a similar appearance in the appropriate clinical setting. ?There are small bilateral pleural effusions. ?No pneumothorax. Cardiomediastinal silhouette: ?Cardiomediastinal silhouette is stable in size. Atherosclerotic calcification of the aortic arch is noted. Other: ?Mild degenerative endplate changes present within the thoracic spine. DEVICES: None MEDICATIONS: Current Facility-Administered Medications: insulin lispro injection (rapid acting) (HumaLOG) SUBCUTANEOUS w MEALS insulin lispro injection (rapid acting) (HumaLOG) SUBCUTANEOUS AT BEDTIME [START ON 04/12/2018] insulin glargine 5 Units pen (long acting) (LANTUS SOLOSTAR, BASAGLAR KWIKPEN) 5 Units SUBCUTANEOUS DAILY (8 AM) Chlorhexidine Gluconate 0.12 % 15 mL (PERIDEX) 15 mL ORAL q 12 H heparin iv infusion (LOW DOSE ACS/NOMOGRAM) 25,000 units in NaCl 0.45% 250 mL PREMIX 0-3,000 Units/hr INTRAVENOUS CONTINUOUS And heparin RATE CHANGE bolus 1,000-4,000 Units for subtherapeutic aptt results 1,000-4,000 Units INTRAVENOUS PRN heparin nomogram - NO INITIAL BOLUS OTHER ONCE (heparin bolus) 0.9% NaCl 3-5 mL 3-5 mL INTRAVENOUS q 12 H benzonatate 100 mg cap(s) (TESSALON PERLE) 100 mg ORAL TID traMADol 50 mg tab(s) (ULTRAM) 50 mg ORAL q 6 H PRN gabapentin 800 mg tab(s) (NEURONTIN) 800 mg ORAL TID cetirizine 10 mg tab(s) (ZyrTEC) 10 mg ORAL DAILY vancomycin 125 mg oral liquid (VANCOCIN) 125 mg ORAL QID nortriptyline 50 mg cap(s) (PAMELOR) 50 mg ORAL AT BEDTIME tiZANidine 4 mg tab(s) (ZANAFLEX) 4 mg ORAL TID PRN dextrose 40 % 15 g 15 g ORAL PRN Or glucagon 1 mg injection (GLUCAGEN) 1 mg INTRAMUSCULAR PRN Or dextrose 50% in water 25 mL syringe 12.5 g INTRAVENOUS PRN carvedilol 6.25 mg tab(s) (COREG) 6.25 mg ORAL BID w MEALS aspirin 81 mg chewable tab(s) 81 mg ORAL DAILY rosuvastatin 20 mg tab(s) (CRESTOR) 20 mg ORAL AT BEDTIME Is the patient currently on any anticoagulant medications: Yes: Anticoagulant medications the patient is currently on: Heparin gtt This was adequately stopped before surgery: No, primary service aware. PAIN AND ANXIETY EDUCATION AND MANAGEMENT: Patient has no concerns to address at this time. Additional Comments: None I have reviewed the Cardiothoracic Surgical Assessment and agree with its findings. During the course of the encounter the patient was prepared for anesthetic care. This conversation included anesthetic options, possible use of invasive monitoring, the risks, benefits, alternatives, and personnel that will be present for the anesthetic encounter. The patient agreed to proceed with the planned anesthetic. Instructed to take His scheduled medication with a small sip of water on the morning of surgery. BETA KURT COMPLIANCE: Is the Patient Scheduled for a CABG: Yes. Patient currently takes a beta kurt, and was asked to take it as scheduled. SIGNATURE: Fernando Schneider DO PATIENT NAME: Rick George Jr. DATE: April 11, 2018 TIME: 4:00 PM PAGER/CONTACT #: Previous Version Zoe Rodriguez MD 04/12/2018 1:41 PM Signed [facility] CARDIOVASCULAR MEDICINE PROGRESS NOTE (Template ID [id number]) Rick George Jr. [id number] PRIMARY SERVICE: i Clinical Cardiology A HOSPITAL DAY: # 8 INTERVAL HISTORY NAEO, no new complaints Ready for Surgery at Noon PHYSICAL EXAM BP 98/60 Pulse 67 Temp 36.6 ?C (97.9 ?F) (Oral) Resp 18 Ht 177.8 cm (5' 10) Wt 88.5 kg (195 lb 1.6 oz) SpO2 96% BMI 27.99 kg/m? Intake/Output Summary (Last 24 hours) at 04/12/18 1307 Last data filed at 04/11/18 2312 Gross per 24 hour Intake 590 ml Output 1590 ml Net -1000 ml General Appearance: Well developed, Well nourished , NAD HEENT: PERRLA, EOM's intact, Sclera anicteric, Fair dentition and JVD - no Lungs: CTAB no crackles today Heart: Regular rate AND rhythm, nml S1, S2, no m/r/g Abdomen: Soft, Non-tender and Bowel sounds present Skin: Warm and Dry Musculoskeletal: no LE edema Neurologic/Psychiatric: Oriented to time, place AND person MEDICATIONS Current hospital medications: insulin lispro injection (rapid acting) (HumaLOG) SUBCUTANEOUS w MEALS insulin lispro injection (rapid acting) (HumaLOG) SUBCUTANEOUS AT BEDTIME insulin glargine 5 Units pen (long acting) (LANTUS SOLOSTAR, BASAGLAR KWIKPEN) 5 Units SUBCUTANEOUS DAILY (8 AM) Chlorhexidine Gluconate 0.12 % 15 mL (PERIDEX) 15 mL ORAL q 12 H 0.9% NaCl 3-5 mL 3-5 mL INTRAVENOUS q 12 H benzonatate 100 mg cap(s) (TESSALON PERLE) 100 mg ORAL TID traMADol 50 mg tab(s) (ULTRAM) 50 mg ORAL q 6 H PRN gabapentin 800 mg tab(s) (NEURONTIN) 800 mg ORAL TID cetirizine 10 mg tab(s) (ZyrTEC) 10 mg ORAL DAILY vancomycin 125 mg oral liquid (VANCOCIN) 125 mg ORAL QID nortriptyline 50 mg cap(s) (PAMELOR) 50 mg ORAL AT BEDTIME tiZANidine 4 mg tab(s) (ZANAFLEX) 4 mg ORAL TID PRN dextrose 40 % 15 g 15 g ORAL PRN glucagon 1 mg injection (GLUCAGEN) 1 mg INTRAMUSCULAR PRN dextrose 50% in water 25 mL syringe 12.5 g INTRAVENOUS PRN carvedilol 6.25 mg tab(s) (COREG) 6.25 mg ORAL BID w MEALS aspirin 81 mg chewable tab(s) 81 mg ORAL DAILY rosuvastatin 20 mg tab(s) (CRESTOR) 20 mg ORAL AT BEDTIME DATA Recent Labs 04/05/18 0531 04/04/18 0158 04/04/18 0008 WBC 11.15* 14.34* 17.22* HB 11.3* 10.8* 6.0* HCT 34.5* 33.6* 19.1* PLT 267 257 350 Recent Labs 04/05/18 0531 04/04/18 0008 NA 138 139 K 3.9 3.7 CO2 23 23 BUN 15 25* CREAT 0.79 0.95 GLUC 107* 130* MG -- 1.9 IMAGING Reviewed ASSESSMENT AND PLAN Rick Hope Doris Gillis is a 57 year old male w PMH of DM2 c/b neuropathy, HTN, HLD, PAD/PVD, and CVA who presented for evaluation for PCI vs CABG after an NSTEMI on 04/01/18. Pt has multivessel dz and DM2 so will likely go for CABG, however patient has at least one active infection, Cdiff and possible PNA. Will start CAD Rxs, prep for CABG, and treat/work up infections. PLAN FOR TODAY - CABG today - Pt will TF to CTS service Neuro #Peripheral Neuropathy 2/2 DM2 Mild numbness in feet b/l Plan Cont Gabapentin ? CV #NSTEMI in s/o 3VDz Tn peak 6, BNP ~600 Had J point elevations on ECG yesterday, stable today Plan CABG w/u complete, accepted by [facility] for surgery. Date depending on necessary treatement duraiton for c diff Colton given J point elevation ? #CAD LMT 25% LAD Prox 85%, Dist 75% LCX Prox 75%, Dist 85% RCA 95% Plan ASA Hold Brillinta for upcoming CABG No heparin gtt given last CP on Tuesday, no current CP Coreg lisinopril Rosuvastatin. No signs of myopathy ? #HTN Plan Coreg lisinopril ? Pulmonary #pulmonary edema - resolved ? GI #Cdiff Pos test at OSH, pt received Flagyl Some improvement in frequency of diarrhea on Flagyl Plan Vancomycin tx length 10 days ? Endocrine #DM2 A1c ~6, c/b neuropathy Plan SSI Insulin ? Renal #polyuria - over 3L UOP yesterday - glucose well controlled, no JUAN, no uremia, no mannitol. IVF have been held PLAN - urine osmoles Diet Hrt Healthy 2g Na - NPO at midnight DVT ppx - heparin sq GI ppx - not indicated Case to be discussed with staff [place] Paul MD PGY1 [place] [id number] [facility] STAFF PHYSICIAN NOTE OF PERSONAL INVOLVEMENT IN CARE Impression/Plan: Mr. George is a 57 yo with SNTEMI found to have severe multivessel CAD, being treated for CDiff (improved symptoms, cleared by ID for surgery), doing well. Scheduled for CABG later today. I have reviewed the documentation obtained and documented by the Fellow/Resident/COMPUTER FORENSICS EXAMINER/PA and have reviewed and updated the problem list as appropriate. I have personally performed a face to face assessment of the patient and have personally participated in the rubi components. I have discussed the case and management of the patient's care. STAFF PHYSICIAN: Zoe Rodriguez MD Date of Service: 04/12/18 Previous Version Progress Notes ([facility]): Ernestina Shahid LPN 03/20/2018 10:35 AM Signed Patient presents for B-12 injection. Denies any problems at this time. Patient instructed on any SE of medication, verbalized understanding and agreed to proceed with treatment. Tolerated injection well. Ernestina Shahid COREY BEDSIDE GLUCOSE Collected: 04/02/2018 Status: F Source: [place] 10:48 PM [facility] REPOSITORY TYPE CODE TESTS RESULT OUT OF REFERENCE UNITS RANGE LAB L501.080 70-110 mg/dL High BEDSIDE GLU 124 Result Comment: MANAGEMENT OF PATIENT CARE PER NURSING PROTOCOL Performed By: #### L501.080 #### [facility] Point of Care [address] [place] [address] BEDSIDE GLUCOSE Collected: 04/02/2018 Status: F Source: [place] 4:34 PM [facility] REPOSITORY TYPE CODE TESTS RESULT OUT OF REFERENCE UNITS RANGE LAB L501.080 70-110 mg/dL High BEDSIDE GLU 139 Result Comment: MANAGEMENT OF PATIENT CARE PER NURSING PROTOCOL Performed By: #### L501.080 #### [facility] Point of Care [address] [place] [address] BEDSIDE GLUCOSE Collected: 04/02/2018 Status: F Source: [place] 12:50 PM [facility] REPOSITORY TYPE CODE TESTS RESULT OUT OF REFERENCE UNITS RANGE LAB L501.080 70-110 mg/dL High BEDSIDE GLU 245 Result Comment: MANAGEMENT OF PATIENT CARE PER NURSING PROTOCOL Performed By: #### L501.080 #### [facility] Point of Care [address] [place] [address] CONSULTATION Observed: 04/02/2018 Status: F Source: [place] 10:36 AM [facility] REPOSITORY [facility] Medical Records Department [address] [place] [address] Consultation 04/01/18 1651 MR#: [id number] Acct: [id number] Name: RICK GEORGE Rep #: [id number] : 1960 57 From: Reid Ring MD PCP: Avery Fischer DO Status: ADM IN Location: [place] [address] Problem List (1) NSTEMI (non-ST elevated myocardial infarction) Status: Acute (2) Hypertension Status: Chronic Qualifiers: Hypertension type: essential hypertension Qualified Code(s): I10 - Essential (primary) hypertension (3) Diabetes mellitus type 2 with complications Status: Chronic Reason for Consult Date of Consultation: 04/01/18 History of Present Illness: The patient is a 57 year old white male with a past medical history which is included hypertension and diabetes mellitus with associated complications who is referred for evaluation of chest discomfort, back discomfort, shortness of breath/dyspnea, and subsequent findings of an abnormal troponin I level compatible with an acute non- ST segment elevation PA. The patient stated that recently he has felt more short of breath and dyspneic, has been coughing, felt he may have dislocated a rib leading to chest and back discomfort, and presented to the [facility] emergency department for concerns of possible pneumonia. During his evaluation he was found to have an abnormal troponin I level. His ECG demonstrated sinus rhythm with the appearance of a septal PA of indeterminate age and nonspecific ST segment changes potentially compatible with myocardial ischemia in the lateral distribution. A chest x-ray was performed which suggested potential atelectasis versus patchy airspace disease in the basilar areas. A chest CTA scan has been performed which based upon preliminary evaluation by the [facility] emergency department staff was considered to be negative for thromboembolic disease/PE. The patient denies any previous documented cardiovascular history. He has denied any orthopnea or PND. He has had right lower extremity injury recently which is being cared for by the [facility] wound center. He denies any near- syncope or syncope although he states he does get lightheaded and dizzy at times. He does claim to have recent diarrhea. He states he has been without any antibiotics for approximately 1 month. [] Past Medical History Allergies/Adverse Reactions: Allergies atorvastatin Adverse Reaction (Verified 04/01/18 12:16) Unknown metformin Adverse Reaction (Verified 04/01/18 12:16) Diarrhea Home Medications: Ambulatory Orders Medication Instructions Recorded Tizanidine HCl [Zanaflex] 4 mg PO 4X/DAY PRN PRN 11/07/14 Ammonium Lactate [Amlactin] 57 gm TP PRN PRN 10/04/17 Baclofen 60 mg PO DAILY 10/04/17 Past Medical History (Chronic Problems): Chronic Problems (Last Reviewed 11/01/17 @ 16:03 by Wilmer Cartwright) Other specified peripheral vascular diseases (Chronic) Xerosis of skin (Chronic) Non-compliance (Chronic) Skin ulcer of finger with fat layer exposed (Chronic) Right Index Finger 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) Hypertension (Chronic) Neuropathy (Chronic) Most likely severe diabetic neuropathy Workup [facility] Cerebrovascular disease (Chronic) Right thalamic stroke Surgical History: - - Toe amputations RLE - *Family History Maternal Family History: Family History (Last Reviewed 11/01/17 @ 16:03 by Wilmer Cartwright) Other Arthritis Hypertension History Items: Diabetes Paternal Family History: Family History (Last Reviewed 11/01/17 @ 16:03 by Wilmer Cartwright) Other Arthritis Hypertension History Items: Diabetes Smoking Status: Never smoker Alcohol: None Drugs: None Review of Systems - Review of Systems General: Reports: Weakness. Denies: Fever, Fatigue, Night Sweats Cardiovascular: Reports: Chest Discomfort, Shortness of Breath, Dizziness. Denies: Orthopnea, PND, Peripheral Edema, Palpitations, Lightheadedness, Near Syncope, Syncope Respiratory: Reports: Shortness of Breath. Denies: Sputum Production, Hemoptysis Gastrointestinal: Reports: Diarrhea. Denies: Hematemesis, Hematochezia, Melena Genitourinary: Denies: Dysuria, Hematuria Subjectve: This is a 57-year-old white male who appears to be resting comfortably at the moment in no acute distress. Objective: Vital Signs Temp Pulse Resp BP Pulse Ox 98.6 F 102 H 18 120/75 93 04/01/18 16:19 04/01/18 16:37 04/01/18 16:37 04/01/18 16:37 04/01/18 16:37 Oxygen Flow Rate (L/min) 2 Oxygen Delivery Method Nasal Cannula General: Awake, Alert, Oriented x 3, Cooperative, No Acute Distress HEENT: Atraumatic, Normocephalic, PERRL, EOMI, Sclera Non Icteric Oral: Moist Mucosa Neck: Supple, Good ROM, No JVD Lungs: Diminished Jovany Bases Cardiovascular: Regular Rhythm, Normal S1, Normal S2 Vascular: No Carotid Bruits Abdomen: Bowel Sounds Present, Soft, Non Tender Extremities: - - Right lower extremity/right leg/right foot: NA Reinier-type wrap Rhythm: Sinus rhythm EKG: As noted above CXR: As noted above: Please see official report Chest CT Scan: Please see official report Assessment/Plan 1. Acute non-ST segment elevation PA The patient presents with a variety of symptoms. He has been found to have an abnormal troponin I level suggestive of an acute non-ST segment elevation PA. There would be concerns based upon his multiple cardiovascular risk that this could be related to underlying CAD and a type I event versus being related to a non-CAD process and a type II supply demand mismatch event. However, he is undergoing noncardiovascular evaluation as well with a chest CT scan to evaluate for thromboembolic disease. The preliminary report is negative, however, the official report is pending. At the present time the patient is being brought into the hospital. He will be monitored. His cardiac enzymes will be followed as well as his ECG. He may need an echocardiogram to assess his left ventricular wall motion and systolic function. However, barring another explanation, he will need to be considered for upcoming diagnostic cardiac catheterization to further assess his coronary anatomy, etc. for the need for revascularization therapy. In the interim he can continue medical management. This would include aspirin therapy. He can be placed on antiplatelet therapy. He is being placed on anticoagulant therapy. Nitrates can be used as needed. He is on a beta-kurt. He states he is intolerant to statins in the past causing extreme muscle weakness. Thus consideration to alternative lipid-lowering agents if need be may need to be considered. 2. Hypertension The patient has a history of underlying hypertension. He will continue medical management as needed. 3. Diabetes mellitus with complications The patient does have diabetes mellitus. He has had multiple complications attributed to his diabetes mellitus. He will continue evaluation care per internal medicine. Comment: The above was discussed and reviewed with the patient and the [facility] emergency department staff. This note was generated with [employer]ation software. It may contain incorrect words, spelling, and punctuation that were not noted in checking the note before signing. 04/02/18 1036 <Electronically signed by Reid Ring MD> Date Reid Ring MD Cosigner Signature (if applicable): Date CC: Avery Fischer, DO; Reid Ring MD Signed BEDSIDE GLUCOSE Collected: 04/02/2018 Status: F Source: DAVIE 6:54 AM [facility] REPOSITORY TYPE CODE TESTS RESULT OUT OF REFERENCE UNITS RANGE LAB L501.080 70-110 mg/dL High BEDSIDE GLU 158 Result Comment: MANAGEMENT OF PATIENT CARE PER NURSING PROTOCOL Performed By: #### L501.080 #### [facility] Point of Care [address] [place], [place] [id number] CBC-COMPLETE BLOOD CNT Collected: 04/02/2018 Status: F Source: [place] NO DIFF 5:58 AM [facility] REPOSITORY TYPE CODE TESTS RESULT OUT OF RANGE REFERENCE UNITS LAB L100.1000 4.4-11.0 K/mm3 High WBC 15.6 LAB L100.1200 4.6-6.2 M/mm3 Low RBC 3.69 LAB L100.1300 13.0-16.5 g/dl Low HGB 11.5 LAB L100.1400 40-54 % Low HCT 36.7 LAB L100.1500 80-94 fL High MCV 99.5 LAB L100.1600 27.0-32.0 pg Normal MCH 31.2 LAB L100.1700 32-36 g/gl Low MCHC 31.3 LAB L100.1810 11.6-14.6 % Normal RDW CV 13.6 LAB L100.1820 35.1-43.9 fl High RDW SD 49.4 LAB L100.1900 150-450 K/mm3 Normal PLT 241 LAB L100.2000 6.2-12.0 fl Normal MPV 10.3 Performed By: #### L100.0500 #### [facility] [address] [place], [place], [id number] BASIC METABOLIC Collected: 04/02/2018 Status: F Source: [place] PROFILE (BMP) 5:58 AM [facility] REPOSITORY TYPE CODE TESTS RESULT OUT OF RANGE REFERENCE UNITS LAB L501.0100 74-106 mg/dL High GLU 133 Result Comment: Fasting Glucose result greater than or equal to 126 mg/dL suggests DIABETES MELLITUS per A.D.A. criteria. Please note revised GLUCOSE reference range effective 2017. LAB L501.1000 7-18 mg/dL High BUN 30 LAB L501.1100 0.70-1.30 mg/dL Normal CREAT,SERUM 1.29 Result Comment: The validity of the calculated GFR AND GFRAA in patients over 70 years has not been determined. Clinical correlation is essential. LAB L501.1110 >60 mL/min Normal EST GFR 61 Result Comment: Non- GFR Calc LAB L501.1115 >60 mL/min Normal EST GFR - AA 74 Result Comment: GFR Calc LAB L501.1255 ml/min Normal Estimated CRCL 66.02 LAB L501.1300 10-20 RATIO High BUN/CRE 23.3 LAB L501.2200 8.5-10 mg/dL Low .1 CA 8.4 LAB L501.5300 136-14 mmol/L Normal 5 NA 138 LAB L501.5600 3.5-5. mmol/L Normal 1 K 4.0 LAB L501.5900 98-107 mmol/L Normal CL 105 LAB L501.6100 21.0-3 mmol/L Normal 2.0 CO2 26.0 LAB L501.6200 5-15 Normal GAP 7 Performed By: #### L500.2500, L500.4100 #### [facility] [address] [place], [place] [address] [place], [place], [address] LIPID PROFILE Collected: 04/02/2018 Status: F Source: DAVIE 5:58 AM [facility] REPOSITORY TYPE CODE TESTS RESULT OUT OF RANGE REFERENCE UNITS LAB L501.4900 200 mg/dL Normal CHOL 94 Result Comment: <200 mg/dL Desirable 200-240 mg/dL Borderline >240 mg/dL High Risk LAB L501.5000 mg/dL Normal TRIG 66 Result Comment: The drugs N-Acetylcysteine and Metamizole may falsely depress this assay. Serum Triglycerides Reference Interval Normal <150 mg/dL Borderline high 150 - 199 mg/dL High 200 - 499 mg/dL Very High > or = 500 mg/dL LAB L501.6400 mg/dL Low HDL 35 Result Comment: The drugs N-Acetylcysteine and Metamizole may falsely depress this assay. Reference Range HDL <40 mg/dL Low HDL Cholesterol HDL >or= 60 mg/dL High HDL Cholesterol LAB L501.6500 0-130 mg/dL Normal LDL 46 LAB L501.6600 5-40 mg/dL Normal VLDL 13 Performed By: #### L500.2500, L500.4100 #### [facility] [address] [place], [address] BNP,B-TYPE NATRIURETIC Collected: 04/02/2018 Status: F Source: [place] PEPTIDE 5:58 AM [facility] REPOSITORY Order Comment: Comments: as add on test TYPE CODE TESTS RESULT OUT OF RANGE REFERENCE UNITS LAB L503.6620 0-100 pg/mL High B-TYPE 385.0 LESLI PEP Performed By: #### L503.6620 #### [facility] [address] [place], [address] Observed: 04/02/2018 Status: F Source: [place] CDIFF (MOLECULAR) 1:36 AM [facility] REPOSITORY Cdiff-Molecular Normal Reference Range = Negative RESULTS CALLED TO [facility] 04/02/18 040Marcus Rogers. REPORT READ BACK BY SAME. RESULTS FAXED TO [facility] INFECTION CONTROL 04/02/18 Michel9 Vikas Rogers. C. Diff DNA Positive-Toxigenic C. Difficile DNA Detected NAAT METHOD Testing was performed using nucleic acid amplification ORGANISM 1: Toxigenic C. difficile DNA Performed By: #### M100.6796 #### [facility] [address] [place], [address] Observed: 04/02/2018 Status: F Source: [place] ENTERIC PATHOGEN 12:00 AM [facility] PANEL STOOL REPOSITORY EP PANEL STOOL Not detected for Campylobacter group, Salmonella species, Shigella species, Vibrio Group, Yersinia enterocolitica, EHEC (Shiga Toxin 1, Shiga Toxin 2), Norovirus Gl/Gll, and Rotavirus A. Other common stool pathogens are not detected on this panel include: Aeromonas/Plesiomonas or parasites. Order testing for these organisms separately if suspected. This is an amplified DNA test which makes it both specific and sensitive. Normal Reference Range = Not Detected CAMPYLOBACTER Not Detected Salmonella Not Detected Shigella sp. Not Detected Shiga Toxin Not Detected Yersinia Not Detected VIBRIO Not Detected Norovirus Not Detected Rotavirus Not Detected Performed By: #### M100.637 #### [facility] [address] [place], [address] BEDSIDE GLUCOSE Collected: 04/01/2018 Status: F Source: [place] 10:39 PM [facility] REPOSITORY TYPE CODE TESTS RESULT OUT OF REFERENCE UNITS RANGE LAB L501.080 70-110 mg/dL High BEDSIDE GLU 230 Result Comment: MANAGEMENT OF PATIENT CARE PER NURSING PROTOCOL Performed By: #### L501.080 #### [facility] Point of Care [address] [place] [address] HISTORY AND PHYSICAL Observed: 04/01/2018 Status: F Source: [place] EXAM 5:57 PM [facility] REPOSITORY [facility] Medical Records Department [address] [place] [address] History and Physical 04/01/18 1630 MR#: [id number] Acct: [id number] Name: RICK GEORGE Rep #: [id number] : 1960 57 From: Mini Marcelino MD PCP: Avery Fischer DO Status: ADM IN Location: [place] [address] Problem List (1) NSTEMI (non-ST elevated myocardial infarction) Status: Acute (2) Type 2 diabetes mellitus with diabetic polyneuropathy Status: Chronic Qualifiers: 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 insulin use: with mcc use Qualified Code(s): E11.42 - Type 2 diabetes mellitus with diabetic polyneuropathy; 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.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 (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) use of insulin (3) Hypertension Status: Chronic Qualifiers: Hypertension type: essential hypertension Qualified Code(s): I10 - Essential (primary) hypertension (4) CHF (congestive heart failure) Status: Acute Qualifiers: Heart failure type: unspecified Heart failure chronicity: acute Qualified Code(s): I50.9 - Heart failure, unspecified History of Present Illness Date of Admission: 04/01/18 Chief Complaint: SOB, chest pain The patient is a 57 year old M past medical history of Raynaoud disease, PAD, PVD, status post amputation of the right toe, recent history of frostbite, history of chronic wound follows up in the wound center, comes in with complaints of shortness of breath ongoing for the past 2 days. Patient denied any dizziness or palpitation but admits to some chest discomfort and feels like he has broken a rib. Denies any palpitations. Complains of some chills but no fever. He also complains of diarrhea that is actually like every 30 minutes to 1 hour every day. Denied any history of cardiac conditions or stents Vitals in the ED with a significant for heart rate of 109, temperature 98.6, respiratory rate of 20, blood pressure 117, saturating 98% on room air. As patient was ambulating, he dropped his pulse oximetry to 87% on room air. Workup including CTA for PE was negative for acute PE but showed pulmonary congestion and pleural effusions. Admitting blood work is significant for normal BMP, but admitting troponins is elevated at 6.020, no EKG changes. BNPep is 564 Past Medical History Past Medical History (Chronic Problems): Chronic Problems (Last Reviewed 11/01/17 @ 16:03 by Wilmer Cartwright) Other specified peripheral vascular diseases (Chronic) Xerosis of skin (Chronic) Non-compliance (Chronic) Skin ulcer of finger with fat layer exposed (Chronic) Right Index Finger 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) Hypertension (Chronic) Neuropathy (Chronic) Most likely severe diabetic neuropathy Workup [facility] Cerebrovascular disease (Chronic) Right thalamic stroke Medical History: Medical History (Last Reviewed 11/01/17 @ 16:03 by Wilmer Cartwright) Diabetes E11.9 Environmental allergies Z91.09 H/O stroke associated with blood clotting tendency Z86.73 Allergies atorvastatin Adverse Reaction (Verified 04/01/18 12:16) Unknown metformin Adverse Reaction (Verified 04/01/18 12:16) Diarrhea Home Medications: Ambulatory Orders Medication Instructions Recorded Tizanidine HCl [Zanaflex] 4 mg PO 4X/DAY PRN PRN 11/07/14 Ammonium Lactate [Amlactin] 57 gm TP PRN PRN 10/04/17 Baclofen 60 mg PO DAILY 10/04/17 Surgical History: - - Toe amputations RLE Psychiatric History: No pertinent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 [facility] [address] [facility] [place], [address] BNP,B-TYPE NATRIURETIC Collected: 04/01/2018 Status: F Source: [place] PEPTIDE 12:30 PM [facility] REPOSITORY TYPE CODE TESTS RESULT OUT OF RANGE REFERENCE UNITS LAB L503.6620 0-100 pg/mL High B-TYPE 564.5 LESLI PEP Performed By: #### L503.6620 #### [facility] [address] [place], [address] PROTHROMBIN TIME W/INR Collected: 04/01/2018 Status: F Source: [place] 12:30 PM [facility] REPOSITORY TYPE CODE TESTS RESULT OUT OF RANGE REFERENCE UNITS LAB L300.4150 11.7-14.9 SECONDS Normal PROTIME 14.9 LAB L300.4200 Normal INR 1.2 Performed By: #### L300.3900, L300.4310 #### [facility] [address] [place], [address] PARTIAL THROMBOPLAST Collected: 04/01/2018 Status: F Source: [place] TIME 12:30 PM [facility] REPOSITORY TYPE CODE TESTS RESULT OUT OF RANGE REFERENCE UNITS LAB L300.4310 24.1-36.2 Seconds Normal PTT 31.7 Performed By: #### L300.3900, L300.4310 #### [facility] [address] [place], [address] PROGRESS Observed: 03/20/2018 Status: COMPLETED Source: [place] 10:33 AM [facility] REPOSITORY HNO ID: [id number] Author: Ernestina Shahid LPN Service: (none) Author Type: (none) Type: Progress Notes Filed: 03/20/2018 10:35 AM Note Text: Patient presents for B-12 injection. Denies any problems at this time. Patient instructed on any SE of medication, verbalized understanding and agreed to proceed with treatment. Tolerated injection well. Ernestina Shahid LPN CNNURSE Observed: 03/20/2018 Status: COMPLETED Source: [place] 10:30 AM [facility] REPOSITORY Nurse Visit (FAMPWS) RICK GEORGE JR. ([id number]) 1960 M Date Time Provider Department 03/20/18 10:30 AM PA NURSE ROJAS During your visit today, we recorded the following information about you: Ernestina Shahid LPN 03/20/2018 10:35 AM Signed Patient presents for B-12 injection. Denies any problems at this time. Patient instructed on any SE of medication, verbalized understanding and agreed to proceed with treatment. Tolerated injection well. Ernestina Shahid LPN Referring Provider: AVERY ESCALANTE [[id number]] Allergies As of Date: 03/20/2018 Noted Allergy Reaction LIPITOR (ATORVASTATIN CALCIUM) 01/07/2015 15 - Contraindication- Medical Olsen* Comments: Elevated LFTs and elevated CK level METFORMIN 03/01/2013 6 - Diarrhea Date Reviewed: 01/30/2018 Reviewed by: Lindsey Cochran LPN - Fully Assessed Reason for Visit: B-12 Injection [247] Primary Visit Diagnosis:Vitamin B12 deficiency [E53.8] Prescriptions as of 03/20/2018 Sig: AMMONIUM LACTATE 12 % TOPICAL* APPLY CREAM TOPICALLY TO AFF* GABAPENTIN 800 MG TABLET Take 800 mg by mouth three ti* MAGNESIUM 250 MG TABLET Take 1 tablet by mouth once d* CELECOXIB 200 MG CAPSULE Take 1 capsule by mouth once * TADALAFIL 20 MG TABLET Take 1 tablet by mouth once d* BLOOD SUGAR DIAGNOSTIC STRIPS Check blood glucose three georgie* BASAGLAR KWIKPEN U-100 INSULI* INJECT 20 UNITS SUBCUTANEOUSL* KETOCONAZOLE 2 % TOPICAL CREAM APPLY TO AFFECTED AREA ON FA* CHOLECALCIFEROL (VITAMIN D3) * TAKE ONE CAPSULE BY MOUTH ONC* LISINOPRIL 30 MG TABLET Take 1 tablet by mouth once d* AMLODIPINE 5 MG TABLET Take 1 tablet by mouth once d* UREA 10 % LOTION Apply 1 application to affect* CYANOCOBALAMIN (VIT B-12) 1,0* Inject 1 mL intramuscularly o* BIOTIN 1 MG TABLET Take 1 tablet by mouth once d* ASPIRIN 325 MG TABLET Take 1 tablet by mouth once d* DIFLORASONE 0.05 % TOPICAL CR* APPLY CREAM TO AFFECTED AREA * HUMALOG KWIKPEN (U-100) INSUL* INJECT 12 TO 20 UNITS SUBCUTA* DIFLORASONE 0.05 % TOPICAL CR* APPLY CREAM TO AFFECTED AREA * DESONIDE 0.05 % TOPICAL CREAM APPLY TO AFFECTED AREA ONCE D* METHOCARBAMOL 500 MG TABLET Take 1 tablet by mouth three * LEVOMEFOLATE CA 3 MG-B6 35 MG* Take 1 capsule by mouth once * CETIRIZINE 10 MG CAPSULE Take 1 capsule by mouth once * PEN NEEDLE, DIABETIC 31 GAUGE* USE TO GIVE INSULIN INJECTION* HUMALOG KWIKPEN (U-100) INSUL* INJECT 12 TO 20 UNITS SUBCUTA* FREESTYLE LANCETS 28 GAUGE USE DIRECTED 3 TO 4 TIMES * NORTRIPTYLINE 50 MG CAPSULE TAKE ONE CAPSULE BY MOUTH ONC* TIZANIDINE 4 MG TABLET Take 1 tablet by mouth every * ASA 162 MG-ACETAMINOPHEN 110 * Take by mouth. 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] INVALID FOR*02/16/2013 Seasonal allergies [J30.2] INVALID FOR* Diabetes mellitus [E11.9] INVALID FOR* Diabetic ulcer of toe [E11.621, L97.509] INVALID FOR*01/03/2014 Osteomyelitis [M86.9] INVALID FOR*12/12/2013 Diabetes with neurologic complications [E11.49] INVALID FOR* Hyperlipidemia [E78.5] INVALID FOR* Diabetes type 2, controlled [E11.9] INVALID FOR* Lower back pain [M54.5] INVALID FOR* Hearing loss [H91.90] INVALID FOR* Dizziness [R42] INVALID FOR* Other musculoskeletal symptoms referable to mixon*INVALID FOR* Hereditary and idiopathic peripheral neuropathy*INVALID FOR* Vitamin B12 deficiency [E53.8] INVALID FOR* PAD (peripheral artery disease) ([facility]) [I73.9] INVALID FOR* Small vessel disease ([facility]) [I99.9] INVALID FOR* DM (diabetes mellitus), type 2 with neurologica*INVALID FOR* Diabetes mellitus with background retinopathy (*INVALID FOR*07/13/2016 Type 1 diabetes mellitus with mild nonprolifera*INVALID FOR*06/08/2016 Other vitreous opacities - Both Eyes [H43.399] INVALID FOR* Lens replaced by other means - Both Eyes [Z96.1]INVALID FOR*07/13/2016 CVA (cerebral vascular accident) ([facility]) [I63.9] INVALID FOR* Type 2 diabetes, controlled, with neuropathy (H*INVALID FOR* Type 2 diabetes mellitus with diabetic neuropat*INVALID FOR*01/29/2016 Type 2 diabetes mellitus with diabetic polyneur*INVALID FOR* After-cataract obscuring vision [H26.499] INVALID FOR* Pseudophakia of both eyes [Z96.1] INVALID FOR* Hyperopia [H52.00] INVALID FOR* Astigmatism, regular [H52.229] INVALID FOR* Vitreous floaters of both eyes [H43.393] INVALID FOR* Meibomian gland dysfunction (MGD) of upper and *INVALID FOR* Encounter Status:Closed by ERNESTINA SHAHID LPN on 03/20/18 PROGRESS Observed: 02/17/2018 Status: COMPLETED Source: [place] 10:44 AM [facility] REPOSITORY HNO ID: [id number] Author: Ernestina Shahid LPN Service: (none) Author Type: (none) Type: Progress Notes Filed: 02/17/2018 10:50 AM Note Text: Patient presents for B-12 and TD injection. Denies any problems at this time. Patient instructed on any SE of medication, verbalized understanding and agreed to proceed with treatment. Tolerated injection well. Ernestina Shahid LPN CNNURSE Observed: 02/17/2018 Status: COMPLETED Source: [place] 10:30 AM [facility] REPOSITORY [facility] RICK GEORGE JR. ([id number]) 1960 M Date Time Provider Department 02/17/18 10:30 AM PA NURSE ROJAS During your visit today, we recorded the following information about you: Ernestina Shahid LPN 02/17/2018 10:50 AM Signed Patient presents for B-12 and TD injection. Denies any problems at this time. Patient instructed on any SE of medication, verbalized understanding and agreed to proceed with treatment. Tolerated injection well. Ernestina Shahid LPN Referring Provider: AVERY ESCALANTE [[id number]] Allergies As of Date: 02/17/2018 Noted Allergy Reaction LIPITOR (ATORVASTATIN CALCIUM) 01/07/2015 15 - Contraindication- Medical Olsen* Comments: Elevated LFTs and elevated CK level METFORMIN 03/01/2013 6 - Diarrhea Date Reviewed: 01/30/2018 Reviewed by: Lindsey Cochran LPN - Fully Assessed Reason for Visit: B-12 Injection [247] Imm/Inj [58] Primary Visit Diagnosis:Vitamin B12 deficiency [E53.8] Other Visit Diagnosis:Need for vaccination [Z23] Prescriptions as of 02/17/2018 Sig: AMMONIUM LACTATE 12 % TOPICAL* APPLY CREAM TOPICALLY TO AFF* GABAPENTIN 800 MG TABLET Take 800 mg by mouth three ti* MAGNESIUM 250 MG TABLET Take 1 tablet by mouth once d* CELECOXIB 200 MG CAPSULE Take 1 capsule by mouth once * TADALAFIL 20 MG TABLET Take 1 tablet by mouth once d* BLOOD SUGAR DIAGNOSTIC STRIPS Check blood glucose three georgie* BASAGLAR KWIKPEN U-100 INSULI* INJECT 20 UNITS SUBCUTANEOUSL* KETOCONAZOLE 2 % TOPICAL CREAM APPLY TO AFFECTED AREA ON FA* CHOLECALCIFEROL (VITAMIN D3) * TAKE ONE CAPSULE BY MOUTH ONC* LISINOPRIL 30 MG TABLET Take 1 tablet by mouth once d* AMLODIPINE 5 MG TABLET Take 1 tablet by mouth once d* UREA 10 % LOTION Apply 1 application to affect* CYANOCOBALAMIN (VIT B-12) 1,0* Inject 1 mL intramuscularly o* BIOTIN 1 MG TABLET Take 1 tablet by mouth once d* ASPIRIN 325 MG TABLET Take 1 tablet by mouth once d* DIFLORASONE 0.05 % TOPICAL CR* APPLY CREAM TO AFFECTED AREA * HUMALOG KWIKPEN (U-100) INSUL* INJECT 12 TO 20 UNITS SUBCUTA* DIFLORASONE 0.05 % TOPICAL CR* APPLY CREAM TO AFFECTED AREA * DESONIDE 0.05 % TOPICAL CREAM APPLY TO AFFECTED AREA ONCE D* METHOCARBAMOL 500 MG TABLET Take 1 tablet by mouth three * LEVOMEFOLATE CA 3 MG-B6 35 MG* Take 1 capsule by mouth once * CETIRIZINE 10 MG CAPSULE Take 1 capsule by mouth once * PEN NEEDLE, DIABETIC 31 GAUGE* USE TO GIVE INSULIN INJECTION* HUMALOG KWIKPEN (U-100) INSUL* INJECT 12 TO 20 UNITS SUBCUTA* FREESTYLE LANCETS 28 GAUGE USE DIRECTED 3 TO 4 TIMES * NORTRIPTYLINE 50 MG CAPSULE TAKE ONE CAPSULE BY MOUTH ONC* TIZANIDINE 4 MG TABLET Take 1 tablet by mouth every * ASA 162 MG-ACETAMINOPHEN 110 * Take by mouth. 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] INVALID FOR*02/16/2013 Seasonal allergies [J30.2] INVALID FOR* Diabetes mellitus [E11.9] INVALID FOR* Diabetic ulcer of toe [E11.621, L97.509] INVALID FOR*01/03/2014 Osteomyelitis [M86.9] INVALID FOR*12/12/2013 Diabetes with neurologic complications [E11.49] INVALID FOR* Hyperlipidemia [E78.5] INVALID FOR* Diabetes type 2, controlled [E11.9] INVALID FOR* Lower back pain [M54.5] INVALID FOR* Hearing loss [H91.90] INVALID FOR* Dizziness [R42] INVALID FOR* Other musculoskeletal symptoms referable to mixon*INVALID FOR* Hereditary and idiopathic peripheral neuropathy*INVALID FOR* Vitamin B12 deficiency [E53.8] INVALID FOR* PAD (peripheral artery disease) ([facility]) [I73.9] INVALID FOR* Small vessel disease (HCC) [I99.9] INVALID FOR* DM (diabetes mellitus), type 2 with neurologica*INVALID FOR* Diabetes mellitus with background retinopathy (*INVALID FOR*07/13/2016 Type 1 diabetes mellitus with mild nonprolifera*INVALID FOR*06/08/2016 Other vitreous opacities - Both Eyes [H43.399] INVALID FOR* Lens replaced by other means - Both Eyes [Z96.1]INVALID FOR*07/13/2016 CVA (cerebral vascular accident) (HCC) [I63.9] INVALID FOR* Type 2 diabetes, controlled, with neuropathy (H*INVALID FOR* Type 2 diabetes mellitus with diabetic neuropat*INVALID FOR*01/29/2016 Type 2 diabetes mellitus with diabetic polyneur*INVALID FOR* After-cataract obscuring vision [H26.499] INVALID FOR* Pseudophakia of both eyes [Z96.1] INVALID FOR* Hyperopia [H52.00] INVALID FOR* Astigmatism, regular [H52.229] INVALID FOR* Vitreous floaters of both eyes [H43.393] INVALID FOR* Meibomian gland dysfunction (MGD) of upper and *INVALID FOR* Encounter Status:Closed by ERNESTINA SHAHID LPN on 02/17/18 CALCANEUS MIN 2 VIEWS Observed: 02/16/2018 Status: F Source: [place] 3:28 PM [facility] REPOSITORY [facility] Imaging Services [address] [place] [address] Calcaneus min 2 Views MR#: [id number] Acct: [id number] Name: RICK GEORGE Rep #: [id number] : 1960 M 57 From: Mazin Torres MD PCP: Avery Fischer DO Status: REG RCR Study: Calcaneus min 2 Views Date of Exam: 02/16/18 Exam# [id number] Ordering Dr: Mary Kay Vance MD STUDY: X-RAY - RIGHT CALCANEUS REASON FOR EXAM: Male, 57 years old. Also TECHNIQUE: 2 view(s) of the calcaneus were obtained. COMPARISON: None. FINDINGS: There is no evidence of fracture or dislocation. There are no definite radiographic findings of osteomyelitis. There are no radiodense foreign bodies. There are vascular calcifications noted. RAD/Calcaneus min 2 Views IMPRESSION: No fracture or dislocation. No definite radiographic findings of osteomyelitis. Electronically Signed: Mazin Torres, at 16:24 EDT Tel , Service support , CC: Mary Kay Vance MD; Avery Fischer DO Animal Technician: Signed ANKLE MIN 3 VIEWS Observed: 02/16/2018 Status: F Source: [place] 2:55 PM [facility] REPOSITORY [facility] Imaging Services [address] [place] [address] Ankle min 3 Views MR#: [id number] Acct: [id number] Name: RICK GEORGE Rep #: [id number] : 1960 M 57 From: Mazin Torres MD PCP: Avery Fischer DO Status: REG RCR Study: Ankle min 3 Views Date of Exam: 02/16/18 Exam# [id number] Ordering Dr: Mary Kay Vance MD STUDY: X-RAY - RIGHT ANKLE REASON FOR EXAM: Male, 57 years old. Pain. Ulcer. TECHNIQUE: 3 view(s) of the ankle. COMPARISON: None. FINDINGS: There is no evidence of fracture or dislocation. There are no definite radiographic findings of osteomyelitis. There are no significant degenerative changes. There are no radiodense foreign bodies. There are vascular calcifications noted. RAD/Ankle min 3 Views IMPRESSION: No fracture or dislocation. No definite radiographic findings of osteomyelitis. Electronically Signed: Mazin Torres, at 16:27 EDT Tel , Service support , CC: Mary Kay Vance MD; Avery Fischer DO Animal Technician: Signed FOOT MIN 3 VIEWS Observed: 02/16/2018 Status: F Source: [place] 2:55 PM [facility] REPOSITORY [facility] Imaging Services [address] [place] [address] Foot min 3 Views MR#: [id number] Acct: [id number] Name: RICK GEORGE Rep #: [id number] : 1960 M 57 From: Mazin Torres MD PCP: Avery Fischer DO Status: REG RCR Study: Foot min 3 Views Date of Exam: 02/16/18 Exam# [id number] Ordering Dr: Mary Kay Vance MD STUDY: X-RAY - RIGHT FOOT CLINICAL: Male, 57 years old. Foot ulcer TECHNIQUE: 3 view(s) of the foot. COMPARISON: None. 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 There is no evidence of fracture or dislocation. There are no definite radiographic findings of osteomyelitis. There are moderate degenerative changes in the midfoot. There are no radiodense foreign bodies. RAD/Foot min 3 Views IMPRESSION: Amputation of the first and second digit at the level of the distal metatarsal. No fracture or dislocation. No radiodense foreign body. No definite radiographic findings of osteomyelitis. Electronically Signed: Mazin Torres, at 16:37 EDT Tel , Service support , CC: Mary Kay Vance MD; Avery Fischer DO Animal Technician: Signed Observed: 02/16/2018 Status: F Source: [place] CULTURE, DEEP W[facility] Comments: RIGHT HEEL ULCER.. Gram Stain Gram Stain No White Blood Cells 2+ Gram positive cocci Wound Culture ORGANISM 1: Staphylococcus aureus Amount Growth 2+ ORGANISM 2: Streptococcus agalactiae (B) Amount Growth 2+ Staphylococcus aureus: REACTION Benzylpenicillin NF <=0.03 R Cefoxitin *NF - Clindamycin $$ <=0.25 S Inducable Clindamycin Resistan - Erythromycin $ <=0.25 S Gentamicin $ <=0.5 S Levofloxacin $ <=0.12 S Linezolid $$$$ 2 S Moxifloxicin *NF <=0.25 S Oxacillin NF <=0.25 S Tigecycline $$$$ <=0.12 S Rifampin $$ <=0.5 S Tetracycline NF <=1 S Trimethoprim/Sulfametho $ <=10 S Vancomycin $ 1 S (NF) indicates non-formulary drug at [facility]. Approval by Infectious Disease Specialist required before non-formulary drugs may be ordered and/or dispensed. * CLSI guidelines does not recommend testing of cephalosporins. This interpretation is deduced from Beta-lactam/penicillin results. Streptococcus agalactiae (B): REACTION Ampicillin $ <=0.25 S Benzylpenicillin NF <=0.06 S Ceftriaxone $ <=0.12 S Clindamycin $$ <=0.25 S Inducable Clindamycin Resistan - Linezolid $$$$ <=2 S Vancomycin $ 0.5 S (NF) indicates non-formulary drug at [facility]. Approval by Infectious Disease Specialist required before non-formulary drugs may be ordered and/or dispensed. * CLSI guidelines does not recommend testing of cephalosporins. This interpretation is deduced from Beta-lactam/penicillin results. Cult, Anaerobic No anaerobic bacteria isolated. Performed By: #### M100.1500 #### [facility] [address] [place], [place], [address] POTASSIUM Collected: 02/09/2018 Status: F Source: [place] 1:37 PM [facility] [place] REPOSITORY TYPE CODE TESTS RESULT OUT OF REFERENCE UNITS RANGE LAB K 3.7-5.1 mmol/L Potassium 4.7 Performed By: #### K1 #### [facility] [address] [place], [place] [address] PROGRESS Observed: 01/31/2018 Status: COMPLETED Source: [place] 7:30 AM [facility] [place] REPOSITORY HNO ID: [id number] Author: Avery Escalante Service: (none) Author Type: Physician Type: Progress Notes Filed: 01/31/2018 7:38 AM Note Text: Patient presents with: Follow Up: 3 months HPI: Rick George Jr. is a 57 year old male who presents to the office today for review of health conditions. Concerns today: Still having intermittent episodes of shaking, tremor, sweating. Sometimes when blood glucose in 60s and sometimes when normal range or in 200s. Seems to vary, not on a daily basis ? Still with Raynaud's like symptoms with color changes in hands, not typically in feet, associated with white to blue discoloration when cold, interested in trial of medication for this. Mr. George has past history of diabetes. Since our last visit he denies excessive thirst or increased frequency of urination, chest pain or dyspnea , new or unusual visual symptoms and low sugar/hypoglycemic reactions. Depression- no. Follows a diabetic diet most of the time. He is compliant with medication(s) and is tolerating med(s) without any side effects. He reports checking his glucose on a twice a day schedule with sugars in the <200 range. Patient's last HgA1C was Hemoglobin A1C (%) Date Value 01/25/2018 6.1 11/01/2017 6.3 ) Last Ophthalmology exam was within the past 12 months Mr. George reports history of hyperlipidemia. Current therapy includes diet and exercise. Denies side effects of muscle weakness or achiness. His most recent lipid panels are reviewed. Cholesterol, Total (mg/dL) Date Value 11/01/2017 154 HDL Cholesterol (mg/dL) Date Value 11/01/2017 23 LDL Cholesterol (mg/dL) Date Value 11/01/2017 107 Triglyceride (mg/dL) Date Value 11/01/2017 122 Mr. George indicates a history of hypertension and states that he is feeling well and denies any symptoms referable to elevated blood pressure. Specifically denies headache, chest pain, palpitations, dyspnea and peripheral edema. Patient denies any side effects of his medication(s) and is compliant with their regimen. Last 3 Encounter BP Readings: Date: BP: 01/30/2018 120/80 11/07/2017 107/72 11/04/2017 128/82 He watches his diet for sodium, low fat and low cholesterol some of the time. He does check BP's away from this office with average BP's in the 120-130/60-80 range. Rick likes to exercise by walking. PAST MEDICAL HISTORY Diagnosis Date - Cataract b/l, eye exam 05/29/13 - CTS (carpal tunnel syndrome) 10/2013 b/l, chronic, Dr. 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 Mazin Hinojosa Neuro, likely from DM and Vitamin B12 defic - Stroke ([facility]) 10/01/13 - Ulnar neuropathy 10/2013 b/l, chronic, Dr. Mazin Hinojosa EMG - Vitamin D deficiency 11/2013 PAST SURGICAL HISTORY Procedure Laterality Date - DISCISSION,2ND CATARACT,LASER 06/07/2013 Yag Capsulotomy-Right eye - LASER, SECONDARY CATARACT 2006 OU - PAST SURGICAL HISTORY OF 02/2013 Amputation Right Gt toe Social History Marital status: Single Spouse name: Years of education: Number of children: 3 Occupational History Occupation Employer Comment [employer] Social History Main Topics Smoking status: Never Smoker Smokeless status: Former User Types: Chew Alcohol use: Yes 12.0 oz/week 8 Cans of Beer (12oz) per week Drug use: No Sexual activity: Yes Partners with: Female FAMILY HISTORY Problem Relation Age of Onset - Diabetes Mother - Heart Father Allergies: ALLERGIES Allergen Reactions - Lipitor [Atorvastat* Contraindication-Medical Surgical Elevated LFTs and elevated CK level - Metformin Diarrhea Current Meds: ammonium lactate (LAC-HYDRIN) 12 % cream APPLY CREAM TOPICALLY TO AFFECTED AREA ONCE DAILY gabapentin (NEURONTIN) 800 mg tablet Take 800 mg by mouth three times daily. Magnesium 250 mg tab Take 1 tablet by mouth once daily. celecoxib (CELEBREX) 200 mg capsule Take 1 capsule by mouth once daily. blood sugar diagnostic (FREESTYLE LITE STRIPS) test strip Check blood glucose three times daily. Dx: E11.42, Insulin dependent BASAGLAR KWIKPEN U-100 INSULIN 100 unit/mL (3 mL) inpn INJECT 20 UNITS SUBCUTANEOUSLY ONCE DAILY AT BEDTIME ketoconazole (NIZORAL) 2 % cream APPLY TO AFFECTED AREA ON FACE ONCE DAILY Cholecalciferol, Vitamin D3, 5,000 unit cap TAKE ONE CAPSULE BY MOUTH ONCE DAILY lisinopril (ZESTRIL,PRINIVIL) 30 mg tablet Take 1 tablet by mouth once daily. amLODIPine (NORVASC) 5 mg tablet Take 1 tablet by mouth once daily. Urea 10 % lotion Apply 1 application to affected area three times daily. For feet Biotin 1 mg tab Take 1 tablet by mouth once daily. aspirin 325 mg tablet Take 1 tablet by mouth once daily. diflorasone 0.05 % cream APPLY CREAM TO AFFECTED AREA TWICE DAILY NEEDED FOR RASH HUMALOG KWIKPEN 100 unit/mL inpn INJECT 12 TO 20 UNITS SUBCUTANEOUSLY WITH MEALS DIRECTED diflorasone 0.05 % cream APPLY CREAM TO AFFECTED AREA TWICE DAILY NEEDED FOR RASH desonide (TRIDESILON) 0.05 % cream APPLY TO AFFECTED AREA ONCE DAILY NEEDED FOR FACE RASH methocarbamol (ROBAXIN) 500 mg tablet Take 1 tablet by mouth three times daily as needed (muscle spasm). [id number]-algal oil (METANX, ALGAL OIL,) 3 mg-35 mg-2 mg -90.314 mg cap Take 1 capsule by mouth once daily. HUMALOG KWIKPEN 100 unit/mL inpn INJECT 12 TO 20 UNITS SUBCUTANEOUSLY WITH MEALS DIRECTED FREESTYLE LANCETS 28 gauge misc USE DIRECTED 3 TO 4 TIMES DAILY TO TEST BLOOD GLUCOSE nortriptyline (PAMELOR) 50 mg capsule TAKE ONE CAPSULE BY MOUTH ONCE DAILY AT BEDTIME tiZANidine (ZANAFLEX) 4 mg tablet Take 1 tablet by mouth every 6 hours as needed. RSV-Shdnarblonkah-Wbeqjau-Caff 162 mg-110 mg -152 mg-32.4 mg tab Take by mouth. Blood Pressure Cuff - Home Use BLOOD PRESSURE CUFF FOR HOME USE. DX: LABILE BLOOD PRESSURE ketoconazole (NIZORAL) 2 % shampoo Apply 1 application to affected area once daily as needed (scalp). Ammonium,Pot.and Sodium Lactates (AMLACTIN) crea Apply 1 Tube to affected area once daily. baclofen (LIORESAL) 20 mg tablet Alcohol Swabs (ALCOHOL PREP PADS) padm Apply 1 application to affected area four times daily. Blood-Glucose Meter (FREESTYLE LITE METER) monitoring kit Freestyle LITE Meter Kit - Dx: Type 2 DM - Controlled E11.9 Tadalafil (CIALIS) 20 mg tab(s) Take 1 tablet by mouth once daily. cyanocobalamin 1,000 mcg/mL soln Inject 1 mL intramuscularly once every month. Cetirizine 10 mg cap Take 1 capsule by mouth once daily. insulin needles, DISPOSABLE, (BD INSULIN PEN NEEDLE UF) 31 gauge x 5/16 ndle USE TO GIVE INSULIN INJECTIONS 4 TIMES DAILY cyanocobalamin, Vitamin B12, (VITAMIN B-12) 1,000 mcg/mL soln Inject 1 mL intramuscularly one time only for 1 dose. Aspirin 81 mg tab Take 81 mg by mouth once daily. Review of Systems: The remainder of the review of systems is negative. PE: 01/30/18 1342 BP: 120/80 Pulse: 80 Resp: 16 Temp: 36.2 ?C (97.2 ?F) TempSrc: Right Tympanic Weight: 93.9 kg (207 lb) Gen: AANDO, NAD, non-toxic appearing, Pleasant, cooperative HEENT: NT/AC, PERRLA, EOMs intact b/l, nares clear and patent b/l, pharynx without erythema, exudate or lesions. MMM, Uvula midline. Neck: supple, No cervical LAD, no thyromegaly, no carotid bruits CV: RRR, normal S1S2, no murmurs, no gallops, no rubs, Pulses 2+ and symmetric in UE and LE b/l Lungs: normal respiratory effort, CTA b/l, no wheezing or rhonchi or rales Abd: soft, NT, ND, +BS, no hepatosplenomegaly MS: FROM all 4 extremities Neuro: CN II-XII intact b/l, muscle wasting hands and forearms and lower legs and feet, + neuropathy hands and feet with limited range of motion Skin: warm, dry, intact, No rashes or lesions on exposed skin. Foot exam: right great toe previous amputation, healed ulcerations b/l heels and forefoot plantar surfaces ASSESSMENT/PLAN: 1. DM (diabetes mellitus), type 2 with neurological complications (HCC) - ICD9: 250.60, ICD10: E11.49 (primary diagnosis) Controlled. - Continue current medications - Blood glucose monitoring on a once a day schedule - Encouraged regular aerobic exercise and weight loss - Daily Asprin therapy recommended - Follow up in 3 months, sooner should any other issues arise. - Discussed diabetic education issues of mcc diabetic complications, diet, medications- side effects and need for compliance and importance of exercise with patient. - BP goal of <130/80 - LDL goal of <100 2. Hypomagnesemia - ICD9: 275.2, ICD10: E83.42 - rx refilled. - MAGNESIUM 250 MG TABLET 3. Hereditary and idiopathic peripheral neuropathy - ICD9: 356.9, ICD10: G60.9 - rx refilled. Has many autonomic - CELECOXIB 200 MG CAPSULE 4. Combined arterial insufficiency and corporo-venous occlusive erectile dysfunction - ICD9: 607.84, ICD10: N52.03 - rx refilled, secondary to arterial disease and diabetes - TADALAFIL 20 MG TABLET 5. Vitamin B12 deficiency - ICD9: 266.2, ICD10: E53.8 - continue Vitamin B12 injections. 6. Raynaud's phenomenon without gangrene - ICD9: 443.0, ICD10: I73.00 - continue Amlodipine 7. Other hyperlipidemia - ICD9: 272.4, ICD10: E78.4 - suboptimal control - Encouraged following a low fat, low cholesterol diet. - Discussed the benefits of regular aerobic exercise and weight loss. - Check fasting lipid panel and ALT in 12 weeks. 8. Essential hypertension - ICD9: 401.9, ICD10: I10 - good control - Continue current medication(s) - Encouraged dietary sodium restriction/DASH diet - Recommended regular aerobic exercise. - Recommend home blood pressure monitoring, to bring results in on next visit - Goal of BP <130/80 Avery Escalante DO To ER if develops chest pain, shortness of breath, or severe worsening of symptoms. Discussed risks, benefits, alternatives, and potential side effects of medications. Patient expressed understanding and agreed with the plan. Avery Escalante DO [address] [place] [address] CNOV Observed: 01/30/2018 Status: COMPLETED Source: [place] 1:40 PM [facility] REPOSITORY Office Visit (FAMPWS) RICK GEORGE JR. ([id number]) 1960 M Date Time Provider Department 01/30/18 1:40 PM [facility] During your visit today, we recorded the following information about you: Temperature Pulse Respiration Blood pressure 97.2 degrees 80/minute 16/minute 120/80 Weight 93.9 kg Avery Escalante DO 01/30/2018 2:23 PM Signed Okay to use Desonide cream for feet as needed (dry skin) Avery Escalante DO 01/31/2018 7:38 AM Signed Patient presents with: Follow Up: 3 months HPI: Rick George Jr. is a 57 year old male who presents to the office today for review of health conditions. Concerns today: Still having intermittent episodes of shaking, tremor, sweating. Sometimes when blood glucose in 60s and sometimes when normal range or in 200s. Seems to vary, not on a daily basis ? Still with Raynaud's like symptoms with color changes in hands, not typically in feet, associated with white to blue discoloration when cold, interested in trial of medication for this. Mr. George has past history of diabetes. Since our last visit he denies excessive thirst or increased frequency of urination, chest pain or dyspnea , new or unusual visual symptoms and low sugar/hypoglycemic reactions. Depression- no. Follows a diabetic diet most of the time. He is compliant with medication(s) and is tolerating med(s) without any side effects. He reports checking his glucose on a twice a day schedule with sugars in the ANDlt;200 range. Patient's last HgA1C was Hemoglobin A1C (%) Date Value 01/25/2018 6.1 11/01/2017 6.3 ) Last Ophthalmology exam was within the past 12 months Mr. George reports history of hyperlipidemia. Current therapy includes diet and exercise. Denies side effects of muscle weakness or achiness. His most recent lipid panels are reviewed. Cholesterol, Total (mg/dL) Date Value 11/01/2017 154 HDL Cholesterol (mg/dL) Date Value 11/01/2017 23 LDL Cholesterol (mg/dL) Date Value 11/01/2017 107 Triglyceride (mg/dL) Date Value 11/01/2017 122 Mr. George indicates a history of hypertension and states that he is feeling well and denies any symptoms referable to elevated blood pressure. Specifically denies headache, chest pain, palpitations, dyspnea and peripheral edema. Patient denies any side effects of his medication(s) and is compliant with their regimen. Last 3 Encounter BP Readings: Date: BP: 01/30/2018 120/80 11/07/2017 107/72 11/04/2017 128/82 He watches his diet for sodium, low fat and low cholesterol some of the time. He does check BP's away from this office with average BP's in the 120-130/60-80 range. Rick likes to exercise by walking. PAST MEDICAL HISTORY Diagnosis Date - Cataract b/l, eye exam 05/29/13 - CTS (carpal tunnel syndrome) 10/2013 b/l, chronic, Dr. 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 Mazin Hinojosa Neuro, likely from DM and Vitamin B12 defic - Stroke ([facility]) 10/01/13 - Ulnar neuropathy 10/2013 b/l, chronic, Dr. Mazin Hinojosa EMG - Vitamin D deficiency 11/2013 PAST SURGICAL HISTORY Procedure Laterality Date - DISCISSION,2ND CATARACT,LASER 06/07/2013 Yag Capsulotomy-Right eye - LASER, SECONDARY CATARACT 2006 OU - PAST SURGICAL HISTORY OF 02/2013 Amputation Right Gt toe Social History Marital status: Single Spouse name: Years of education: Number of children: 3 Occupational History Occupation Employer Comment [employer] Social History Main Topics Smoking status: Never Smoker Smokeless status: Former User Types: Chew Alcohol use: Yes 12.0 oz/week 8 Cans of Beer (12oz) per week Drug use: No Sexual activity: Yes Partners with: Female FAMILY HISTORY Problem Relation Age of Onset - Diabetes Mother - Heart Father Allergies: ALLERGIES Allergen Reactions - Lipitor [Atorvastat* Contraindication-Medical Surgical Elevated LFTs and elevated CK level - Metformin Diarrhea Current Meds: ammonium lactate (LAC-HYDRIN) 12 % cream APPLY CREAM TOPICALLY TO AFFECTED AREA ONCE DAILY gabapentin (NEURONTIN) 800 mg tablet Take 800 mg by mouth three times daily. Magnesium 250 mg tab Take 1 tablet by mouth once daily. celecoxib (CELEBREX) 200 mg capsule Take 1 capsule by mouth once daily. blood sugar diagnostic (FREESTYLE LITE STRIPS) test strip Check blood glucose three times daily. Dx: E11.42, Insulin dependent BASAGLAR KWIKPEN U-100 INSULIN 100 unit/mL (3 mL) inpn INJECT 20 UNITS SUBCUTANEOUSLY ONCE DAILY AT BEDTIME ketoconazole (NIZORAL) 2 % cream APPLY TO AFFECTED AREA ON FACE ONCE DAILY Cholecalciferol, Vitamin D3, 5,000 unit cap TAKE ONE CAPSULE BY MOUTH ONCE DAILY lisinopril (ZESTRIL,PRINIVIL) 30 mg tablet Take 1 tablet by mouth once daily. amLODIPine (NORVASC) 5 mg tablet Take 1 tablet by mouth once daily. Urea 10 % lotion Apply 1 application to affected area three times daily. For feet Biotin 1 mg tab Take 1 tablet by mouth once daily. aspirin 325 mg tablet Take 1 tablet by mouth once daily. diflorasone 0.05 % cream APPLY CREAM TO AFFECTED AREA TWICE DAILY NEEDED FOR RASH HUMALOG KWIKPEN 100 unit/mL inpn INJECT 12 TO 20 UNITS SUBCUTANEOUSLY WITH MEALS DIRECTED diflorasone 0.05 % cream APPLY CREAM TO AFFECTED AREA TWICE DAILY NEEDED FOR RASH desonide (TRIDESILON) 0.05 % cream APPLY TO AFFECTED AREA ONCE DAILY NEEDED FOR FACE RASH methocarbamol (ROBAXIN) 500 mg tablet Take 1 tablet by mouth three times daily as needed (muscle spasm). imxcwkjex-[id number]-[id number]-algal oil (METANX, ALGAL OIL,) 3 mg-35 mg-2 mg -90.314 mg cap Take 1 capsule by mouth once daily. HUMALOG KWIKPEN 100 unit/mL inpn INJECT 12 TO 20 UNITS SUBCUTANEOUSLY WITH MEALS DIRECTED FREESTYLE LANCETS 28 gauge misc USE DIRECTED 3 TO 4 TIMES DAILY TO TEST BLOOD GLUCOSE nortriptyline (PAMELOR) 50 mg capsule TAKE ONE CAPSULE BY MOUTH ONCE DAILY AT BEDTIME tiZANidine (ZANAFLEX) 4 mg tablet Take 1 tablet by mouth every 6 hours as needed. DUV-Fkrgltscihmvn-Cyzyudv-Caff 162 mg-110 mg -152 mg-32.4 mg tab Take by mouth. Blood Pressure Cuff - Home Use BLOOD PRESSURE CUFF FOR HOME USE. DX: LABILE BLOOD PRESSURE ketoconazole (NIZORAL) 2 % shampoo Apply 1 application to affected area once daily as needed (scalp). Ammonium,Pot.and Sodium Lactates (AMLACTIN) crea Apply 1 Tube to affected area once daily. baclofen (LIORESAL) 20 mg tablet Alcohol Swabs (ALCOHOL PREP PADS) padm Apply 1 application to affected area four times daily. Blood-Glucose Meter (FREESTYLE LITE METER) monitoring kit Freestyle LITE Meter Kit - Dx: Type 2 DM - Controlled E11.9 Tadalafil (CIALIS) 20 mg tab(s) Take 1 tablet by mouth once daily. cyanocobalamin 1,000 mcg/mL soln Inject 1 mL intramuscularly once every month. Cetirizine 10 mg cap Take 1 capsule by mouth once daily. insulin needles, DISPOSABLE, (BD INSULIN PEN NEEDLE UF) 31 gauge x 5/16ANDquot; ndle USE TO GIVE INSULIN INJECTIONS 4 TIMES DAILY cyanocobalamin, Vitamin B12, (VITAMIN B-12) 1,000 mcg/mL soln Inject 1 mL intramuscularly one time only for 1 dose. Aspirin 81 mg tab Take 81 mg by mouth once daily. Review of Systems: The remainder of the review of systems is negative. PE: 01/30/18 1342 BP: 120/80 Pulse: 80 Resp: 16 Temp: 36.2 ?C (97.2 ?F) TempSrc: Right Tympanic Weight: 93.9 kg (207 lb) Gen: AANDamp;O, NAD, non-toxic appearing, Pleasant, cooperative HEENT: NT/AC, PERRLA, EOMs intact b/l, nares clear and patent b/l, pharynx without erythema, exudate or lesions. MMM, Uvula midline. Neck: supple, No cervical LAD, no thyromegaly, no carotid bruits CV: RRR, normal S1S2, no murmurs, no gallops, no rubs, Pulses 2+ and symmetric in UE and LE b/l Lungs: normal respiratory effort, CTA b/l, no wheezing or rhonchi or rales Abd: soft, NT, ND, +BS, no hepatosplenomegaly MS: FROM all 4 extremities Neuro: CN II-XII intact b/l, muscle wasting hands and forearms and lower legs and feet, + neuropathy hands and feet with limited range of motion Skin: warm, dry, intact, No rashes or lesions on exposed skin. Foot exam: right great toe previous amputation, healed ulcerations b/l heels and forefoot plantar surfaces ASSESSMENT/PLAN: 1. DM (diabetes mellitus), type 2 with neurological complications (HCC) - ICD9: 250.60, ICD10: E11.49 (primary diagnosis) Controlled. - Continue current medications - Blood glucose monitoring on a once a day schedule - Encouraged regular aerobic exercise and weight loss - Daily Asprin therapy recommended - Follow up in 3 months, sooner should any other issues arise. 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 - BP goal of ANDlt;130/80 - LDL goal of ANDlt;100 2. Hypomagnesemia - ICD9: 275.2, ICD10: E83.42 - rx refilled. - MAGNESIUM 250 MG TABLET 3. Hereditary and idiopathic peripheral neuropathy - ICD9: 356.9, ICD10: G60.9 - rx refilled. Has many autonomic - CELECOXIB 200 MG CAPSULE 4. Combined arterial insufficiency and corporo-venous occlusive erectile dysfunction - ICD9: 607.84, ICD10: N52.03 - rx refilled, secondary to arterial disease and diabetes - TADALAFIL 20 MG TABLET 5. Vitamin B12 deficiency - ICD9: 266.2, ICD10: E53.8 - continue Vitamin B12 injections. 6. Raynaud's phenomenon without gangrene - ICD9: 443.0, ICD10: I73.00 - continue Amlodipine 7. Other hyperlipidemia - ICD9: 272.4, ICD10: E78.4 - suboptimal control - Encouraged following a low fat, low cholesterol diet. - Discussed the benefits of regular aerobic exercise and weight loss. - Check fasting lipid panel and ALT in 12 weeks. 8. Essential hypertension - ICD9: 401.9, ICD10: I10 - good control - Continue current medication(s) - Encouraged dietary sodium restriction/DASH diet - Recommended regular aerobic exercise. - Recommend home blood pressure monitoring, to bring results in on next visit - Goal of BP ANDlt;130/80 Avery Escalante DO To ER if develops chest pain, shortness of breath, or severe worsening of symptoms. Discussed risks, benefits, alternatives, and potential side effects of medications. Patient expressed understanding and agreed with the plan. Avery Escalante DO [address] [place] [address] Referring Provider: AVERY ESCALANTE [[id number]] Allergies As of Date: 01/30/2018 Noted Allergy Reaction LIPITOR (ATORVASTATIN CALCIUM) 01/07/2015 15 - Contraindication- Medical Olsen* Comments: Elevated LFTs and elevated CK level METFORMIN 03/01/2013 6 - Diarrhea Date Reviewed: 01/30/2018 Reviewed by: Lindsey Cochran LPN - Fully Assessed Reason for Visit: Follow Up [171] Cmt: 3 months Primary Visit Diagnosis:DM (diabetes mellitus), type 2 with neurological complications (HCC) [E11.49] Other Visit Diagnoses:Hypomagnesemia [E83.42] Hereditary and idiopathic peripheral neuropathy [G60.9] Combined arterial insufficiency and corporo-venous occlusive erectile dysfunction [N52.03] Vitamin B12 deficiency [E53.8] Raynaud's phenomenon without gangrene [I73.00] Other hyperlipidemia [E78.4] Essential hypertension [I10] Order(s):Magnesium 250 mg tabTake 1 tablet by mouth once daily.Disp: 90 tabletRfl: 3 celecoxib (CELEBREX) 200 mg capsuleTake 1 capsule by mouth once daily.Disp: 30 capsuleRfl: 5 Tadalafil (CIALIS) 20 mg tab(s)Take 1 tablet by mouth once daily.Disp: 36 tabletRfl: 11 Prescriptions as of 01/30/2018 Sig: AMMONIUM LACTATE 12 % TOPICAL* APPLY CREAM TOPICALLY TO AFF* GABAPENTIN 800 MG TABLET Take 800 mg by mouth three ti* MAGNESIUM 250 MG TABLET Take 1 tablet by mouth once d* CELECOXIB 200 MG CAPSULE Take 1 capsule by mouth once * BLOOD SUGAR DIAGNOSTIC STRIPS Check blood glucose three georgie* BASAGLAR KWIKPEN U-100 INSULI* INJECT 20 UNITS SUBCUTANEOUSL* KETOCONAZOLE 2 % TOPICAL CREAM APPLY TO AFFECTED AREA ON FA* CHOLECALCIFEROL (VITAMIN D3) * TAKE ONE CAPSULE BY MOUTH ONC* LISINOPRIL 30 MG TABLET Take 1 tablet by mouth once d* AMLODIPINE 5 MG TABLET Take 1 tablet by mouth once d* UREA 10 % LOTION Apply 1 application to affect* BIOTIN 1 MG TABLET Take 1 tablet by mouth once d* ASPIRIN 325 MG TABLET Take 1 tablet by mouth once d* DIFLORASONE 0.05 % TOPICAL CR* APPLY CREAM TO AFFECTED AREA * HUMALOG KWIKPEN (U-100) INSUL* INJECT 12 TO 20 UNITS SUBCUTA* DIFLORASONE 0.05 % TOPICAL CR* APPLY CREAM TO AFFECTED AREA * DESONIDE 0.05 % TOPICAL CREAM APPLY TO AFFECTED AREA ONCE D* METHOCARBAMOL 500 MG TABLET Take 1 tablet by mouth three * LEVOMEFOLATE CA 3 MG-B6 35 MG* Take 1 capsule by mouth once * HUMALOG KWIKPEN (U-100) INSUL* INJECT 12 TO 20 UNITS SUBCUTA* FREESTYLE LANCETS 28 GAUGE USE DIRECTED 3 TO 4 TIMES * NORTRIPTYLINE 50 MG CAPSULE TAKE ONE CAPSULE BY MOUTH ONC* TIZANIDINE 4 MG TABLET Take 1 tablet by mouth every * ASA 162 MG-ACETAMINOPHEN 110 * Take by mouth. COMPOUNDED PRESCRIPTION BLOOD PRESSURE CUFF FOR HOME * KETOCONAZOLE 2 % SHAMPOO Apply 1 application to affect* AMMONIUM LACTATE-SODIUM LACTA* Apply 1 Tube to affected area* BACLOFEN 20 MG TABLET ALCOHOL SWABS Apply 1 application to affect* BLOOD-GLUCOSE METER KIT Freestyle LITE Meter Kit - Dx* TADALAFIL 20 MG TABLET Take 1 tablet by mouth once d* CYANOCOBALAMIN (VIT B-12) 1,0* Inject 1 mL intramuscularly o* CETIRIZINE 10 MG CAPSULE Take 1 capsule by mouth once * PEN NEEDLE, DIABETIC 31 GAUGE* USE TO GIVE INSULIN INJECTION* CYANOCOBALAMIN (VIT B-12) 1,0* Inject 1 mL intramuscularly o* ASPIRIN 81 MG TABLET Take 81 mg by mouth once mele* Medication notes this encounter GABAPENTIN 300 MG CAPSULE >> Lindsey Cochran LPN 01/30/2018 1:46 PM >> LINDSEY COCHRAN LPN Mon Jan 30, 2018 1:46 PM Changed dose Problem List As Of Date 01/30/2018 Noted Resolved Diabetes 1.5, 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] INVALID FOR*02/16/2013 Seasonal allergies [J30.2] INVALID FOR* Diabetes mellitus [E11.9] INVALID FOR* Diabetic ulcer of toe [E11.621, L97.509] INVALID FOR*01/03/2014 Osteomyelitis [M86.9] INVALID FOR*12/12/2013 Diabetes with neurologic complications [E11.49] INVALID FOR* Hyperlipidemia [E78.5] INVALID FOR* Diabetes type 2, controlled [E11.9] INVALID FOR* Lower back pain [M54.5] INVALID FOR* Hearing loss [H91.90] INVALID FOR* Dizziness [R42] INVALID FOR* Other musculoskeletal symptoms referable to mixon*INVALID FOR* Hereditary and idiopathic peripheral neuropathy*INVALID FOR* Vitamin B12 deficiency [E53.8] INVALID FOR* PAD (peripheral artery disease) ([facility]) [I73.9] INVALID FOR* Small vessel disease ([facility]) [I99.9] INVALID FOR* DM (diabetes mellitus), type 2 with neurologica*INVALID FOR* Diabetes mellitus with background retinopathy (*INVALID FOR*07/13/2016 Type 1 diabetes mellitus with mild nonprolifera*INVALID FOR*06/08/2016 Other vitreous opacities - Both Eyes [H43.399] INVALID FOR* Lens replaced by other means - Both Eyes [Z96.1]INVALID FOR*07/13/2016 CVA (cerebral vascular accident) ([facility]) [I63.9] INVALID FOR* Type 2 diabetes, controlled, with neuropathy (H*INVALID FOR* Type 2 diabetes mellitus with diabetic neuropat*INVALID FOR*01/29/2016 Type 2 diabetes mellitus with diabetic polyneur*INVALID FOR* After-cataract obscuring vision [H26.499] INVALID FOR* Pseudophakia of both eyes [Z96.1] INVALID FOR* Hyperopia [H52.00] INVALID FOR* Astigmatism, regular [H52.229] INVALID FOR* Vitreous floaters of both eyes [H43.393] INVALID FOR* Meibomian gland dysfunction (MGD) of upper and *INVALID FOR* Other instructions from your clinician: Okay to use Desonide cream for feet as needed (dry skin) Prescriptions ordered this encounter Disp Refills Start End MAGNESIUM 250 MG TABLET 90 t* 3 01/30/2018 Route: ORAL Sig: Take 1 tablet by mouth once daily. CELECOXIB 200 MG CAPSULE 30 c* 5 01/30/2018 Route: ORAL Sig: Take 1 capsule by mouth once daily. TADALAFIL 20 MG TABLET 36 t* 11 01/30/2018 Class: Print RX Route: ORAL Sig: Take 1 tablet by mouth once daily. Medications Discontinued During This Encounter ammonium lactate (LAC-HYDRIN) 12 % c* 140 g 5 01/25/2018 01/30/2018 Sig: APPLY CREAM TOPICALLY TO AFFECTED AREA ONCE DAILY Disc: Reason for discontinue is not on file. gabapentin (NEURONTIN) 300 mg capsule 180 * 3 01/25/2018 01/30/2018 Route: ORAL Sig: Take 2 capsules by mouth three times daily for 30 days. Disc: Reason for discontinue is not on file. Magnesium 250 mg tab 90 t* 0 11/04/2017 01/30/2018 Route: ORAL Sig: Take 1 tablet by mouth once daily. Disc: Reason for discontinue is not on file. celecoxib (CELEBREX) 200 mg capsule 30 c* 5 09/01/2016 01/30/2018 Route: ORAL Sig: Take 1 capsule by mouth once daily. Disc: Reason for discontinue is not on file. Encounter Status:Closed by AVERY ESCALANTE DO on 01/31/18 COMP METABOLIC PANEL Collected: 01/25/2018 Status: F Source: [place] 12:20 PM [facility] REPOS[facility]ORY TYPE CODE TESTS RESULT OUT OF REFERENCE UNITS RANGE LAB TP 6.3-8.0 g/dL Protein, Total 7.7 LAB ALB 3.9-4.9 g/dL Albumin 4.1 LAB CA 8.5-10.2 mg/dL Calcium, Total 9.8 LAB TBIL 0.2-1.3 mg/dL Bilirubin, Total 0.4 LAB ALKP 36-108 U/L Alkaline Phosphatase 76 LAB AST 14-40 U/L AST 32 LAB GLU 74-99 mg/dL Glucose High 103 Result Comment: The [place] [employer] (ADA) provides guidance for cutoff values for fasting glucose and random glucose. The ADA defines fasting as no caloric intake for at least 8 hours. Fas ting plasma glucose results between 100 to 125 mg/dL indicate increased risk for diabetes (prediabetes). Fasting plasma glucose results greater than or equal to 126 mg/dL meet the criteria for diagnosis of diabetes. In the absence of unequivocal hyperglycemia, results should be confirmed by repeat testing. In a patient with classic symptoms of hyperglycemia or hyperglycemic crisis, random plasma glucose results greater than or equal to 200 mg/dL meet the criteria for diagnosis of diabetes. Reference: Standards of Medical Care in Diabetes 2016, [place] [employer]. Diabetes Care. 2016.39(Suppl 1). LAB BUN 9-24 mg/dL BUN High 32 LAB CRET 0.73-1.22 mg/dL Creatinine 0.98 LAB NA 136-144 mmol/L Sodium 139 LAB K 3.7-5.1 mmol/L Potassium High 5.8 LAB CL 97-105 mmol/L Chloride 99 LAB CO2 22-30 mmol/L CO2 24 LAB AGAP 9-18 mmol/L Anion Gap 16 LAB ALT 10-54 U/L ALT 36 LAB GFRAA eGFR- Amer. >60 LAB GFRNAA . eGFR-All Other Races >60 Result Comment: eGFR (Estimated GFR) Units of measure: mL/min/1.73 meters squared eGFR is derived from the reexpressed MDRD Study equation using the following parameters: serum creatinine, age, gender and race. The creatinine assay has been calibrated to be traceable to IDMS. An eGFR <60 mL/min/1.73m2 for >3 months is consistent with chronic kidney disease. Refer to KDOQI guidelines for clinical interpretation. In patients with unstable renal function, e.g. those with acute kidney injury, the eGFR may not accurately reflect actual GFR. Performed By: #### CMP, HBA1C #### [facility] [address] [place], [place] [address] HEMOGLOBIN A1C Collected: 01/25/2018 Status: F Source: [place] 12:20 PM [facility] REPOSITORY TYPE CODE TESTS RESULT OUT OF REFERENCE UNITS RANGE LAB HGBA1C 4.3-5.6 % High Hemoglobin A1c 6.1 LAB HBA0 mg/dL Est. Average Glucose 128 Result Comment: eAG: (Estimated average glucose) is a calculated value from HgbA1c and is billing customer service representative of the average blood glucose level in the last 2-3 month period. Performed By: #### CMP, HBA1C #### [facility] [address] [place] [id number] PROGRESS Observed: 01/18/2018 Status: COMPLETED Source: [place] 10:58 AM [facility] REPOSITORY HNO ID: [id number] Author: Ernestina Shahid LPN Service: (none) Author Type: (none) Type: Progress Notes Filed: 01/18/2018 11:00 AM Note Text: Patient presents for B-12 injection. Denies any problems at this time. Patient instructed on any SE of medication, verbalized understanding and agreed to proceed with treatment. Tolerated injection well. Ernestina Shahid LPN CNNURSE Observed: 01/18/2018 Status: COMPLETED Source: [place] 10:30 AM [facility] REPOSITORY Nurse Visit (FAMPWS) RICK GEORGE JR. ([id number]) 1960 M Date Time Provider Department 01/18/18 10:30 AM PA NURSE FAMPWS During your visit today, we recorded the following information about you: Ernestina Shahid LPN 01/18/2018 11:00 AM Signed Patient presents for B-12 injection. Denies any problems at this time. Patient instructed on any SE of medication, verbalized understanding and agreed to proceed with treatment. Tolerated injection well. Ernestina Shahid LPN Referring Provider: AVERY ESCALANTE [[id number]] Allergies As of Date: 01/18/2018 Noted Allergy Reaction LIPITOR (ATORVASTATIN CALCIUM) 01/07/2015 15 - Contraindication- Medical Olsen* Comments: Elevated LFTs and elevated CK level METFORMIN 03/01/2013 6 - Diarrhea Date Reviewed: 11/07/2017 Reviewed by: Terrence Kendrick RN - Fully Assessed Reason for Visit: B-12 Injection [247] Primary Visit Diagnosis:Vitamin B12 deficiency [E53.8] Prescriptions as of 01/18/2018 Sig: LUIS JESUS U-100 INSULI* INJECT 20 UNITS SUBCUTANEOUSL* KETOCONAZOLE 2 % TOPICAL CREAM APPLY TO AFFECTED AREA ON FA* MAGNESIUM 250 MG TABLET Take 1 tablet by mouth once d* GABAPENTIN 300 MG CAPSULE TAKE TWO CAPSULES BY MOUTH TH* CHOLECALCIFEROL (VITAMIN D3) * TAKE ONE CAPSULE BY MOUTH ONC* LISINOPRIL 30 MG TABLET Take 1 tablet by mouth once d* AMLODIPINE 5 MG TABLET Take 1 tablet by mouth once d* UREA 10 % LOTION Apply 1 application to affect* CYANOCOBALAMIN (VIT B-12) 1,0* Inject 1 mL intramuscularly o* BIOTIN 1 MG TABLET Take 1 tablet by mouth once d* ASPIRIN 325 MG TABLET Take 1 tablet by mouth once d* AMMONIUM LACTATE 12 % TOPICAL* APPLY CREAM TOPICALLY TO AFF* DIFLORASONE 0.05 % TOPICAL CR* APPLY CREAM TO AFFECTED AREA * HUMALOG KWIKPEN (U-100) INSUL* INJECT 12 TO 20 UNITS SUBCUTA* DIFLORASONE 0.05 % TOPICAL CR* APPLY CREAM TO AFFECTED AREA * DESONIDE 0.05 % TOPICAL CREAM APPLY TO AFFECTED AREA ONCE D* METHOCARBAMOL 500 MG TABLET Take 1 tablet by mouth three * LEVOMEFOLATE CA 3 MG-B6 35 MG* Take 1 capsule by mouth once * CETIRIZINE 10 MG CAPSULE Take 1 capsule by mouth once * PEN NEEDLE, DIABETIC 31 GAUGE* USE TO GIVE INSULIN INJECTION* HUMALOG KWIKPEN (U-100) INSUL* INJECT 12 TO 20 UNITS SUBCUTA* FREESTYLE LANCETS 28 GAUGE USE DIRECTED 3 TO 4 TIMES * NORTRIPTYLINE 50 MG CAPSULE TAKE ONE CAPSULE BY MOUTH ONC* BLOOD SUGAR DIAGNOSTIC STRIPS Test blood sugar(s) 3 times d* TIZANIDINE 4 MG TABLET Take 1 tablet by mouth every * ASA 162 MG-ACETAMINOPHEN 110 * Take by mouth. COMPOUNDED PRESCRIPTION BLOOD PRESSURE CUFF FOR HOME * CELECOXIB 200 MG CAPSULE Take 1 capsule by mouth once * KETOCONAZOLE 2 % SHAMPOO Apply 1 application to affect* AMMONIUM LACTATE-SODIUM LACTA* Apply 1 Tube to affected area* BACLOFEN 20 MG TABLET ALCOHOL SWABS Apply 1 application to affect* BLOOD-GLUCOSE METER KIT Freestyle LITE Meter Kit - Dx* CYANOCOBALAMIN (VIT B-12) 1,0* Inject 1 mL intramuscularly o* ASPIRIN 81 MG TABLET Take 81 mg by mouth once mele* Medication notes this encounter CYANOCOBALAMIN (VIT B-12) 1,000 MCG/ML INJECTION SOLUTION >> Ernestina Shahid LPN 01/18/2018 10:59 AM >> ERNESTINA SHAHID LPN TueJan 18, 2018 10:59 AM The patient is here for an injection of Vitamin B12 (Cyanocobalamin). Dose: 1000mcg/1ml Amount wasted: none. 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] INVALID FOR*02/16/2013 Seasonal allergies [J30.2] INVALID FOR* Diabetes mellitus [E11.9] INVALID FOR* Diabetic ulcer of toe [E11.621, L97.509] INVALID FOR*01/03/2014 Osteomyelitis [M86.9] INVALID FOR*12/12/2013 Diabetes with neurologic complications [E11.49] INVALID FOR* Hyperlipidemia [E78.5] INVALID FOR* Diabetes type 2, controlled [E11.9] INVALID FOR* Lower back pain [M54.5] INVALID FOR* Hearing loss [H91.90] INVALID FOR* Dizziness [R42] INVALID FOR* Other musculoskeletal symptoms referable to mixon*INVALID FOR* Hereditary and idiopathic peripheral neuropathy*INVALID FOR* Vitamin B12 deficiency [E53.8] INVALID FOR* PAD (peripheral artery disease) ([facility]) [I73.9] INVALID FOR* Small vessel disease ([facility]) [I99.9] INVALID FOR* DM (diabetes mellitus), type 2 with neurologica*INVALID FOR* Diabetes mellitus with background retinopathy (*INVALID FOR*07/13/2016 Type 1 diabetes mellitus with mild nonprolifera*INVALID FOR*06/08/2016 Other vitreous opacities - Both Eyes [H43.399] INVALID FOR* Lens replaced by other means - Both Eyes [Z96.1]INVALID FOR*07/13/2016 CVA (cerebral vascular accident) ([facility]) [I63.9] INVALID FOR* Type 2 diabetes, controlled, with neuropathy (H*INVALID FOR* Type 2 diabetes mellitus with diabetic neuropat*INVALID FOR*01/29/2016 Type 2 diabetes mellitus with diabetic polyneur*INVALID FOR* After-cataract obscuring vision [H26.499] INVALID FOR* Pseudophakia of both eyes [Z96.1] INVALID FOR* Hyperopia [H52.00] INVALID FOR* Astigmatism, regular [H52.229] INVALID FOR* Vitreous floaters of both eyes [H43.393] INVALID FOR* Meibomian gland dysfunction (MGD) of upper and *INVALID FOR* Encounter Status:Closed by ERNESTINA SHAHID LPN on 01/18/18 WOUND CTR HISTORY Observed: 01/09/2018 Status: F Source: [facility] 2:23 PM [facility] REPOSITORY [facility] [address] [place] [address] Wound Ctr History AND Physical 01/04/18 1900 MR#: [id number] Acct: [id number] Name: RICK GEORGE Rep #: [id number] : 1960 57 From: Mary Kay Vance MD PCP: Avery Fischer DO Status: REG RCR Y Location: WC (1) Skin ulcer of finger with fat layer exposed Status: Chronic Current Visit: Yes Code(s): L98.492 - Non-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ulcer of skin of other sites with fat layer exposed Comment: Right Index Finger (2) Callous ulcer with fat layer exposed Status: Chronic Current Visit: Yes Code(s): L98.492 - Non-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ulcer of skin of other sites with fat layer exposed Comment: Right middle and ring fingers. (3) Diabetes mellitus type 2 with complications Status: Chronic Current Visit: No Code(s): E11.8 - Type 2 diabetes mellitus with unspecified complications History of Present Illness Date of Service: 01/04/18 Chief Complaint: Ulcers of right index, middle and ring finger. History of Wound: Mr. George is a 57yo with PMH of Diabetes currently seeing Dr Aparicio for lower extremity ulcers. I was asked to see him for chronic ulcers of his right index, middle and ring fingers. 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 There is no significant callous of his right index finger however, he noted the ulcer sometime in September after he had been in 0 degree weather with exposed hands for a long time. He reports pain in that digit but denies any discharge from the site. He has also been applying Neosporin without any significant improvement. 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 Diabetes mellitus type 2 with complications (Chronic) Hypertension (Chronic) Neuropathy (Chronic) Most likely severe diabetic neuropathy Workup [facility] Cerebrovascular disease (Chronic) Right thalamic stroke Surgical History: - - Toe amputations RLE Allergies/Adverse Reactions: Allergies atorvastatin Adverse Reaction (Verified 12/28/17 13:47) Unknown metformin Adverse Reaction (Verified 12/28/17 13:47) Diarrhea Home Medications: Ambulatory Orders Medication Instructions Recorded Lisinopril [Zestril] 5 mg PO DAILY #30 tablet 10/08/13 - Family History Maternal Family History: Family History (Last Reviewed 11/01/17 @ 16:03 by Wilmer Cartwright) Other Arthritis Hypertension Diabetes Paternal Family History: Family History (Last Reviewed 11/01/17 @ 16:03 by Wilmer Cartwright) Other Arthritis Hypertension Diabetes Smoking Status: Never smoker Review of Systems Constitutional: Denies: Anorexia, Chills, Fever Eyes: Denies: Pain, Redness HEENT: Denies: Difficulty Hearing, Difficulty Swallowing Cardiovascular: Denies: Chest Pain, Heaviness Respiratory: Denies: Cough, Hemoptysis Gastrointestinal: Denies: Abdominal Pain, Hematemesis, Vomiting Skin: Denies: Dryness, Jaundice - Physical Exam Vital Signs Temp Pulse Resp BP 98.4 F 98 16 153/83 H 01/04/18 10:51 01/04/18 10:51 01/04/18 10:51 01/04/18 10:51 General: Alert, Oriented x3, Cooperative, No apparent distress HEENT: Atraumatic, Normocephalic Oral: Moist Mucosa Neck: Supple, No Nuchal Rigidity Lungs: Normal air movement Cardiovascular: Regular rate Abdomen: Soft, Non Tender Extremities: No cyanosis Wound Measurements and Assessment WC - Nurse 1 - General Ulcer Measurement Start: 12/28/17 13:13 Freq: Status: Active Protocol: Activity Type Activity Date Activity User E-Sign Co-Sign Detail Recorded Client Recorded Date Recorded By Document 01/04/18 10:51 MARJORIE [id number] 01/04/18 11:07 MARJORIE Wound Center Nurse 1 [Ulcer Assessment] 7-RIGHT RING FINGER -Combined with other wound No -Current Size (cm) - Length 0.2 WC - Nurse 2 - General Ulcer CM Notes Start: 12/28/17 13:13 Freq: Status: Active Protocol: Activity Type Activity Date Activity User E-Sign Co-Sign Detail Wound Center Nurse 2 Musculoskeletal: No Muscle Wasting Neurological: Cranial nerves II-XII grossly intact Psych/Mental Status: Normal Affect Debridement Note Post-Debridement Measurements/Treatment WC - Nurse 2 - General Ulcer CM Notes Start: 12/28/17 13:13 Freq: Status: Active Protocol: Activity Type Activity Date Activity User E-Sign Co-Sign Detail Recorded Client Recorded Date Recorded By Wound Center Nurse 2 7-RIGHT RING FINGER -Time 12:33 -Correct Patient Yes -Correct Side, Site, Position Yes Wound debrided: Right Index Finger Wound Grade/Stage: Stage II Type of Debridement: Excisional debridement Anesthesia Used: 4% Lidocaine Solution Depth: in the subcutaneous layer Percentage of wound debrided: 100 Instrument Used: #15 blade, Forceps Tissue Removed: Eschar, Slough and devitalized tissue Severity: Fat Layer Exposed Amount of bleeding with debridement: Mild Bleeding Controlled with: Pressure Patient tolerated procedure well - Additional Wound Wound debrided: Right middle finger Wound Grade/Stage: Stage II Type of Debridement: Excisional debridement Anesthesia Used: 4% Lidocaine Solution Depth: in the subcutaneous layer Percentage of wound debrided: 100 Instrument Used: 3mm curette Tissue Removed: Slough and devitalized tissue Severity: Fat Layer Exposed Amount of bleeding with debridement: Mild Bleeding Controlled with: Pressure Patient tolerated procedure: Patient tolerated procedure well - Additional Wound Wound debrided: Right ring finger Wound Grade/Stage: Stage II Type of Debridement: Excisional debridement Anesthesia Used: 4% Lidocaine Solution Depth: in the subcutaneous layer Percentage of wound debrided: 100 Instrument Used: 3mm curette Tissue Removed: Slough and devitalized tissue Severity: Fat Layer Exposed Amount of bleeding with debridement: Mild Bleeding Controlled with: Pressure Patient tolerated procedure: Patient tolerated procedure well Assessment/Plan Active Problems (Last Reviewed 11/01/17 @ 16:03 by Wilmer Cartwright) Other specified peripheral vascular diseases (Chronic) Ulcer of right foot with fat layer exposed (Chronic) 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 Assessment: Right heel ulcer healed. left heel ulcers with fat exposed. Right sub-fourth metatarsal head ulcer with fat exposed. Left sub-fifth metatarsal head ulcer with fat exposed. Diabetes with neuropathy. Xerosis. Hammertoes bilateral. Noncompliance. Right Index , Middle and Ring finger ulcers with Fat layer exposed.(sees Dr. Vance) Plan: Mr. George presents with a 3 month history of digit ulcers as described above. Right middle and ring fingers as a result of significant callus. Right index finger possibly due to vasoconstriction from his history of Raynaud's. Debridement of all three ulcers was done. Procedure was well tolerated. Mild tenderness of the right index finger noted during debridement. Apply beau with adaptic covering to all three ulcers with advice also given about moisturizing skin adequately. Desuaded from using Latex gloves at night. 100% cotton gloves preferred. Patient will benefit from a CCB to increase vasodilation and blood flow to his digits due to his history of raynaud's. Other chronic wound care instructions/plan as addressed with Dr. Aparicio. Follow up in 1 week. 01/09/18 2318 <Electronically signed by Mary Kay Vance MD> Date Mary Kay Vance MD CC: Signed WOUND CTR HISTORY Observed: 12/31/2017 Status: F Source: [facility]ICAL 12:40 PM [facility] REPOSITORY [facility] [address] [place] [address] Wound Ctr History AND Physical 12/28/17 1713 MR#: [id number] Acct: [id number] Name: RICK GEORGE Rep #: [id number] : 1960 57 From: Abigail Aparicio DPM PCP: Avery Fischer, DO Status: REG RCR Y Location: ADDENDUM by Abigail Aparicio DPM on 12/31/17 at 1239 Code Visit His medical records were obtained from [facility]. He previously saw Dr. Reagan. On November 03, he had HAYLEE right 1.05 HAYLEE left 2.02. He did not have a deep venous thrombosis. He did have plaques and several of the arteries without occlusions and there was a left midcalf occlusion with an open distal posterior artery. I recommended advanced wound care product, epi fix. The product purpose indication and expected management were discussed. He is amenable. Preauthorization will be initiated. He was also advised to continue proper diabetic control. 12/31/17 1239 <Electronically signed by Abigail Aparicio DPM> Date Abigail Aparicio DPM CC: * Signed ADDENDUM by Abigail Aparicio DPM on 12/30/17 at 1307 Code Visit His ulcers have a diabetes etiology. Diabetes with neuropathy; E11.42 12/30/17 1307 <Electronically signed by Abigail Aparicio DPM> Date Abigail Aparicio DPM CC: * Signed (1) Other specified peripheral vascular diseases Status: Chronic Current Visit: Yes Code(s): I73.89 - Other specified peripheral vascular diseases (2) Ulcer of right foot with fat layer exposed Status: Chronic Current Visit: Yes Code(s): L97.512 - Non-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ulcer of other part of right foot with fat layer exposed (3) Chronic ulcer of left foot with fat layer exposed Status: Chronic Current Visit: Yes Code(s): L97.522 - Non-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ulcer of other part of left foot with fat layer exposed (4) Xerosis of skin Status: Chronic Current Visit: Yes Code(s): L85.3 - Xerosis cutis (5) Non-compliance Status: Chronic Current Visit: Yes Code(s): Z91.19 - Patient's noncompliance with other medical treatment and regimen History of Present Illness Date of Service: 12/30/17 Chief Complaint: foot ulcers History of Wound: This 57-year-old male with multiple comorbidities was seen for ulcers of both feet with an onset of nearly 2 months ago. The ulcer started as cracks in the skin. He has been applying hydrogel. 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 Recently he has been out in the [place] with surgical shoes and [employer] bands over the feet. He denies fever, chill, nausea, vomiting, foot pain today. His skin is dry skin symptoms. He does have rest paresthesias and continued lack of sensation due to his neuropathy. He has multiple wounds to his right hand fingers and asked for evaluation today. These have worsened over the past couple weeks and he denies odor. He applied Neosporin and this is not helping Past Medical History Past Medical History: Chronic Problems (Last Reviewed 11/01/17 @ 16:03 by Wilmer Cartwright) Other specified peripheral vascular diseases (Chronic) Ulcer of right foot with fat layer exposed (Chronic) Chronic ulcer of left foot with fat layer exposed (Chronic) Xerosis of skin (Chronic) Non-compliance (Chronic) Diabetes mellitus type 2 with complications (Chronic) Hypertension (Chronic) Neuropathy (Chronic) Most likely severe diabetic neuropathy Workup [facility] Cerebrovascular disease (Chronic) Right thalamic stroke Surgical History: - - Toe amputations RLE Allergies/Adverse Reactions: Allergies atorvastatin Adverse Reaction (Verified 12/28/17 13:47) Unknown metformin Adverse Reaction (Verified 12/28/17 13:47) Diarrhea Home Medications: Ambulatory Orders Medication Instructions Recorded Lisinopril [Zestril] 5 mg PO DAILY #30 tablet 10/08/13 - Family History Maternal Family History: Family History (Last Reviewed 11/01/17 @ 16:03 by Wilmer Cartwright) Other Arthritis Hypertension Diabetes Paternal Family History: Family History (Last Reviewed 11/01/17 @ 16:03 by Wilmer Cartwright) Other Arthritis Hypertension Diabetes Smoking Status: Never smoker Review of Systems Constitutional: Denies: Chills, Fever, Weakness, Fatigue Cardiovascular: Denies: Claudication Respiratory: Denies: Shortness of Breath Gastrointestinal: Denies: Nausea, Vomiting Skin: Reports: Skin Changes, Wounds Neurological: Denies: Numbness - Physical Exam Vital Signs Temp Pulse Resp BP 99.3 F H 99 16 141/90 H 12/28/17 13:13 12/28/17 13:13 12/28/17 13:13 12/28/17 13:13 General: Alert, Oriented x3, Cooperative HEENT: Atraumatic Extremities: No cyanosis, Capillary Refill Less than 3 Seconds, No Calf Tenderness - negative kandace and nieves signs bilateral, Diminished Peripheral Pulses Skin: Ulcer/ Wound - No purulence, no erythema, streaking, no exposed capsular bone bilateral his skin is very xerotic with multiple cracks and fissures. Wound beds are pale and granular without any new undermining or tunneling. There is lack of hair bilateral Wound Measurements and Assessment WC - Nurse 1 - General Ulcer Measurement Start: 12/28/17 13:13 Freq: Status: Active Protocol: Activity Type Activity Date Activity User E-Sign Co-Sign Detail Recorded Client Recorded Date Recorded By Document 12/28/17 13:13 [id number] 12/28/17 13:36 Wound Center Nurse 1 [Ulcer Assessment] #4 R HEEL -Current Size (cm) - Length 0.5 WC - Nurse 2 - General Ulcer CM Notes Start: 12/28/17 13:13 Freq: Status: Active Protocol: Activity Type Activity Date Activity User E-Sign Co-Sign Detail Recorded Client Recorded Date Recorded By Document 12/28/17 14:03 [id number] 12/28/17 14:22 TM Musculoskeletal: No Tenderness to Palpation of Joints or Extremities, Muscle Wasting, - - Dorsal contraction of lesser toes of prominent metatarsal heads. right 1 and 2 toe amputation Neurological: - - Lack of epicritic sensation light touch bilateral Psych/Mental Status: Normal Affect, Appropriate Debridement Note Post-Debridement Measurements/Treatment - Nurse 2 - General Ulcer CM Notes Start: 12/28/17 13:13 Freq: Status: Active Protocol: Activity Type Activity Date Activity User E-Sign Co-Sign Detail Recorded Client Recorded Date Recorded By Document 12/28/17 14:03 TM [id number] 12/28/17 14:22 Wound Center Nurse 2 #4 R HEEL Wound debrided: lateral plantar foot Laterality: Left Wound Grade/Stage: grade 1 Type of Debridement: Excisional debridement Anesthesia Used: 4% Lidocaine Solution Depth: in the subcutaneous layer Percentage of wound debrided: 100 Instrument Used: #15 blade Tissue Removed: fibrous, devitalized subcutaneous, biofilm, slough Severity: Fat Layer Exposed Amount of bleeding with debridement: Mild Bleeding Controlled with: Pressure Patient tolerated procedure well - Additional Wound Wound debrided: heel Laterality: Left Wound Grade/Stage: grade 1 Type of Debridement: Excisional debridement Anesthesia Used: 4% Lidocaine Solution Depth: in the subcutaneous layer Percentage of wound debrided: 100 Instrument Used: #15 blade Tissue Removed: fibrous, devitalized subcutaneous, biofilm, slough Severity: Fat Layer Exposed Amount of bleeding with debridement: Mild Bleeding Controlled with: Pressure Patient tolerated procedure: Patient tolerated procedure well - Additional Wound Wound debrided: heel Laterality: Right Wound Grade/Stage: grade 1 Type of Debridement: Excisional debridement Anesthesia Used: 4% Lidocaine Solution Depth: in the subcutaneous layer Percentage of wound debrided: 100 Instrument Used: #15 blade Tissue Removed: fibrous, devitalized subcutaneous, biofilm, slough Severity: Fat Layer Exposed Amount of bleeding with debridement: Mild Bleeding Controlled with: Pressure Patient tolerated procedure: Patient tolerated procedure well - Additional Wound Wound debrided: sub 4th metatarsal head Laterality: Right Wound Grade/Stage: grade 1 Type of Debridement: Excisional debridement Anesthesia Used: 4% Lidocaine Solution Depth: in the subcutaneous layer Percentage of wound debrided: 100 Instrument Used: #15 blade Tissue Removed: fibrous, devitalized subcutaneous, biofilm, slough Severity: Fat Layer Exposed Amount of bleeding with debridement: Mild Bleeding Controlled with: Pressure Patient tolerated procedure: Patient tolerated procedure well Assessment/Plan Active Problems (Last Reviewed 11/01/17 @ 16:03 by Wilmer Cartwright) Other specified peripheral vascular diseases (Chronic) Ulcer of right foot with fat layer exposed (Chronic) Chronic ulcer of left foot with fat layer exposed (Chronic) Xerosis of skin (Chronic) Non-compliance (Chronic) Assessment: Bilateral heel ulcers with fat exposed. Right sub-fourth metatarsal head ulcer with fat exposed. Left sub-fifth metatarsal head ulcer with fat exposed. Diabetes with neuropathy. Xerosis. Hammertoes bilateral. Noncompliance. Finger ulcers right hand 1,2,3 Plan: I reviewed and discussed his care plan today. Also debridement was performed as noted in the clinical panel. He was reassured there are no signs of infection. Beau dry dressings were applied. He is advised to change every day. To continue with strict offloading with surgical shoes. He already has these devices and compliance was discussed. I do not recommend he continues to walk around in this cold weather due to frostbite concern and his neuropathy. To moisturize the adjacent skin to improve skin integrity to his hands and feet. Updated labs and x-rays were ordered and these are pending. He understands he is at risk for continued infection development, delayed healing. He has nonhealing wounds to his hands and would like to seek intervention. I recommend he follow-up with a physician that can also treat him for the hand at the wound center here to follow-up with me on an intermittent basis if needed. Will communicate his care plan. To maintain and improve diabetic control and nutritional supplementation to optimize healing. A prescription for Gregg was provided.To return to clinic in one week or call sooner if problems or concerns. 12/30/17 1200 <Electronically signed by Abigail Aparicio DPM> Date Abigail Aparicio DPM CC: Signed PROGRESS Observed: 12/19/2017 Status: COMPLETED Source: [facility] 10:38 AM [facility] REPOSITORY HNO ID: [id number] Author: Ernestina Shahid LPN Service: (none) Author Type: (none) Type: Progress Notes Filed: 12/19/2017 10:41 AM Note Text: Patient presents for B-12 injection. Denies any problems at this time. Patient instructed on any SE of medication, verbalized understanding and agreed to proceed with treatment. Tolerated injection well. Ernestina Shahid LPN CNNURSE Observed: 12/19/2017 Status: COMPLETED Source: [place] 10:30 AM [facility] REPOSITORY Nurse Visit (NICANORPWS) RICK GEORGE JR. ([id number]) 1960 M Date Time Provider Department 12/19/17 10:30 AM PA NURSE ROJAS During your visit today, we recorded the following information about you: Ernestina Shahid LPN 12/19/2017 10:41 AM Signed Patient presents for B-12 injection. Denies any problems at this time. Patient instructed on any SE of medication, verbalized understanding and agreed to proceed with treatment. Tolerated injection well. Ernestina Shahid LPN Referring Provider: AVERY ESCALANTE [[id number]] Allergies As of Date: 12/19/2017 Noted Allergy Reaction LIPITOR (ATORVASTATIN CALCIUM) 01/07/2015 15 - Contraindication- Medical [facility]lsen* Comments: Elevated LFTs and elevated CK level METFORMIN 03/01/2013 6 - Diarrhea Date Reviewed: 11/07/2017 Reviewed by: Terrence Kendrick RN - Fully Assessed Reason for Visit: B-12 Injection [247] Primary Visit Diagnosis:Vitamin B12 deficiency [E53.8] Prescriptions as of 12/19/2017 Sig: MAGNESIUM 250 MG TABLET Take 1 tablet by mouth once d* GABAPENTIN 300 MG CAPSULE TAKE TWO CAPSULES BY MOUTH TH* CHOLECALCIFEROL (VITAMIN D3) * TAKE ONE CAPSULE BY MOUTH ONC* LISINOPRIL 30 MG TABLET Take 1 tablet by mouth once d* AMLODIPINE 5 MG TABLET Take 1 tablet by mouth once d* UREA 10 % LOTION Apply 1 application to affect* CYANOCOBALAMIN (VIT B-12) 1,0* Inject 1 mL intramuscularly o* BIOTIN 1 MG TABLET Take 1 tablet by mouth once d* ASPIRIN 325 MG TABLET Take 1 tablet by mouth once d* AMMONIUM LACTATE 12 % TOPICAL* APPLY CREAM TOPICALLY TO AFF* DIFLORASONE 0.05 % TOPICAL CR* APPLY CREAM TO AFFECTED AREA * HUMALOG KWIKPEN (U-100) INSUL* INJECT 12 TO 20 UNITS SUBCUTA* DIFLORASONE 0.05 % TOPICAL CR* APPLY CREAM TO AFFECTED AREA * DESONIDE 0.05 % TOPICAL CREAM APPLY TO AFFECTED AREA ONCE D* INSULIN GLARGINE (U-100) 100 * Inject 20 Units subcutaneousl* METHOCARBAMOL 500 MG TABLET Take 1 tablet by mouth three * LEVOMEFOLATE CA 3 MG-B6 35 MG* Take 1 capsule by mouth once * CETIRIZINE 10 MG CAPSULE Take 1 capsule by mouth once * PEN NEEDLE, DIABETIC 31 GAUGE* USE TO GIVE INSULIN INJECTION* HUMALOG KWIKPEN (U-100) INSUL*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 Cans of Beer (12oz) per week Drug use: No Sexual activity: Yes Partners with: Female FAMILY HISTORY Problem Relation Age of Onset - Diabetes Mother - Heart Father Allergies: ALLERGIES Allergen Reactions - Lipitor [Atorvastat* Contraindication-Medical Surgical Elevated LFTs and elevated CK level - Metformin Diarrhea Current Meds: gabapentin (NEURONTIN) 300 mg capsule TAKE TWO CAPSULES BY MOUTH THREE TIMES DAILY Cholecalciferol, Vitamin D3, 5,000 unit cap TAKE ONE CAPSULE BY MOUTH ONCE DAILY ketoconazole (NIZORAL) 2 % shampoo Apply 1 application to affected area once daily as needed. ammonium lactate (LAC-HYDRIN) 12 % cream APPLY CREAM TOPICALLY TO AFFECTED AREA ONCE DAILY ketoconazole (NIZORAL) 2 % cream APPLY CREAM TOPICALLY TO AFFECTED AREA ONCE DAILY ON FACE RASH diflorasone 0.05 % cream APPLY CREAM TO AFFECTED AREA TWICE DAILY NEEDED FOR RASH HUMALOG KWIKPEN 100 unit/mL inpn INJECT 12 TO 20 UNITS SUBCUTANEOUSLY WITH MEALS DIRECTED diflorasone 0.05 % cream APPLY CREAM TO AFFECTED AREA TWICE DAILY NEEDED FOR RASH ketoconazole (NIZORAL) 2 % cream APPLY CREAM TOPICALLY TO AFFECTED AREA ONCE DAILY ON FACE RASH desonide (TRIDESILON) 0.05 % cream APPLY TO AFFECTED AREA ONCE DAILY NEEDED FOR FACE RASH insulin glargine (BASAGLAR KWIKPEN) 100 unit/mL (3 mL) inpn Inject 20 Units subcutaneously daily at bedtime. Indications: Diabetes Mellitus methocarbamol (ROBAXIN) 500 mg tablet Take 1 tablet by mouth three times daily as needed (muscle spasm). ketoconazole (NIZORAL) 2 % cream APPLY TO FACE RASH ONCE DAILY anbewjnxl-K2-[id number]-algal oil (METANX, ALGAL OIL,) 3 mg-35 mg-2 mg -90.314 mg cap Take 1 capsule by mouth once daily. Cetirizine 10 mg cap Take 1 capsule by mouth once daily. insulin needles, DISPOSABLE, (BD INSULIN PEN NEEDLE UF) 31 gauge x 5/16 ndle USE TO GIVE INSULIN INJECTIONS 4 TIMES DAILY HUMALOG KWIKPEN 100 unit/mL inpn INJECT 12 TO 20 UNITS SUBCUTANEOUSLY WITH MEALS DIRECTED FREESTYLE LANCETS 28 gauge misc USE DIRECTED 3 TO 4 TIMES DAILY TO TEST BLOOD GLUCOSE nortriptyline (PAMELOR) 50 mg capsule TAKE ONE CAPSULE BY MOUTH ONCE DAILY AT BEDTIME blood sugar diagnostic (FREESTYLE LITE STRIPS) test strip Test blood sugar(s) 3 times daily. Dx: Type 2 DM - Uncontrolled E11.65 Insulin: Yes tiZANidine (ZANAFLEX) 4 mg tablet Take 1 tablet by mouth every 6 hours as needed. DIL-Mclgrcdzompwr-Llxsryn-Caff 162 mg-110 mg -152 mg-32.4 mg tab Take by mouth. aspirin 325 mg tablet Take 325 mg by mouth once daily. Blood Pressure Cuff - Home Use BLOOD PRESSURE CUFF FOR HOME USE. DX: LABILE BLOOD PRESSURE Biotin 1 mg tab Take 1 tablet by mouth once daily. celecoxib (CELEBREX) 200 mg capsule Take 1 capsule by mouth once daily. ketoconazole (NIZORAL) 2 % shampoo Apply 1 application to affected area once daily as needed (scalp). Ammonium,Pot.and Sodium Lactates (AMLACTIN) crea Apply 1 Tube to affected area once daily. baclofen (LIORESAL) 20 mg tablet Tadalafil (CIALIS) 20 mg tab(s) Take 1 tablet by mouth once daily. Alcohol Swabs (ALCOHOL PREP PADS) padm Apply 1 application to affected area four times daily. Blood-Glucose Meter (FREESTYLE LITE METER) monitoring kit Freestyle LITE Meter Kit - Dx: Type 2 DM - Controlled E11.9 Vardenafil HCl (LEVITRA) 20 mg tablet Take 20 mg by mouth as needed (daily as needed). lisinopril (ZESTRIL,PRINIVIL) 30 mg tablet Take 1 tablet by mouth once daily. amLODIPine (NORVASC) 5 mg tablet Take 1 tablet by mouth once daily. Urea 10 % lotion Apply 1 application to affected area three times daily. For feet cyanocobalamin 1,000 mcg/mL soln Inject 1 mL intramuscularly once every month. HYDROcodone-acetaminophen (NORCO) 5-325 mg per tablet Take 1 tablet by mouth every 8 hours as needed for Pain. cyanocobalamin, Vitamin B12, (VITAMIN B-12) 1,000 mcg/mL soln Inject 1 mL intramuscularly one time only for 1 dose. cyanocobalamin, Vitamin B12, (VITAMIN B-12) 1,000 mcg/mL soln Inject 1 mL intramuscularly once every month. 1 DOSE MONTHLY Aspirin 81 mg tab Take 81 mg by mouth once daily. Review of Systems: The remainder of the review of systems is negative. PE: 11/01/17 1226 BP: 138/82 Pulse: 92 Resp: 16 Temp: 36.3 ?C (97.3 ?F) TempSrc: Right Tympanic Weight: 89.4 kg (197 lb) Gen: AANDOX3, NAD, non-toxic appearing HEENT: PERRLA, EOMs intact b/l, nares without drainage, pharynx without erythema, exudate, lesions, or drainage. Uvula midline. EAC b/l with purulent drainage and discomfort, TM appear inflamed. Neck: No LAD, no thyromegaly, no meningismus. CV: RRR, no murmur Lungs: CTA b/l, no wheezing Thoracic spine TTP midline lower and upper lumbar ttp over spinous processes Left knee clicking/popping on flex / ext on passive ROM, left lateral knee profound joint swelling and instability. 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 Type 2 diabetes mellitus with diabetic polyneuropathy, with long-term current use of insulin ([facility]) - ICD9: 250.60, 357.2, V58.67, ICD10: E11.42, Z79.4 (primary diagnosis) Controlled. - Continue current medications - Check HgA1C and fasting lipid panel - HGB A1C 2. Sweating increase - ICD9: 780.8, ICD10: R61 - labs as ordered, likely related to MECH[employer]IC [employer] related changes - HGB A1C - COMP METABOLIC PANEL - TSH BLD - T4 FREE/FREE THYROX - T3 BLD - CORTISOL BLD 3. Vitamin B12 deficiency - ICD9: 266.2, ICD10: E53.8 - continue monthly vitamin B12 injections - CYANOCOBALAMIN (VIT B-12) 1,000 MCG/ML INJECTION SOLUTION 4. Raynaud's phenomenon without gangrene - ICD9: 443.0, ICD10: I73.00 - add on low dose CCB for symptoms, also will help his HTN - AMLODIPINE 5 MG TABLET 5. Hypertension, essential - ICD9: 401.9, ICD10: I10 - suboptimal control - Increase lisinopril (Zestril/Prinivil) - Encouraged dietary sodium restriction/DASH diet - Recommended regular aerobic exercise. - Recommend home blood pressure monitoring, to bring results in on next visit - Goal of BP <130/80 - LISINOPRIL 30 MG TABLET 6. Dry skin - ICD9: 701.1, ICD10: L85.3 - UREA 10 % LOTION 7. Restless leg - ICD9: 333.94, ICD10: G25.81 - labs as below, likely multifactorial - MAGNESIUM BLD - FERRITIN BLD Avery Escalante DO To ER if develops chest pain, shortness of breath, or severe worsening of symptoms. Discussed risks, benefits, alternatives, and potential side effects of medications. Patient expressed understanding and agreed with the plan. Avery Escalante DO [address] [place] [address] CNOV Observed: 11/01/2017 Status: COMPLETED Source: [place] 12:20 PM [facility] REPOSITORY [facility] RICK GEORGE JR. ([id number]) 1960 M Date Time Provider Department 11/01/17 12:20 PM AVERY ESCALANTE During your visit today, we recorded the following information about you: Temperature Pulse Respiration Blood pressure 97.3 degrees 92/minute 16/minute 138/82 Weight 89.4 kg Avery Escalante DO 11/01/2017 1:35 PM Signed Patient presents with: Follow Up: 3 months HPI: Rick George Jr. is a 57 year old male who presents to the office today for review of health conditions. Concerns today: Still having intermittent episodes of shaking, tremor, sweating. Sometimes when blood glucose in 60s and sometimes when normal range or in 200s. Seems to vary, not on a daily basis Still with Raynaud's like symptoms with color changes in hands, not typically in feet, associated with white to blue discoloration when cold, interested in trial of medication for this. Mr. George has past history of diabetes. Since our last visit he denies excessive thirst or increased frequency of urination, chest pain or dyspnea , new or unusual visual symptoms and low sugar/hypoglycemic reactions. Follows a diabetic diet most of the time. He is compliant with medication(s) and is tolerating med(s) without any side effects. He reports checking his glucose on a once a day schedule with sugars in the fasting 100-200s range. Patient's last HgA1C was Hemoglobin A1C (%) Date Value 07/07/2017 5.8 04/01/2017 5.5 ) Last Ophthalmology exam was within the past 12 months Mr. George reports history of hyperlipidemia. Current therapy includes diet and exercise. Denies side effects of muscle weakness or achiness. His most recent lipid panels are reviewed. Cholesterol, Total (mg/dL) Date Value 11/23/2016 193 HDL Cholesterol (mg/dL) Date Value 11/23/2016 59 LDL Cholesterol (mg/dL) Date Value 11/23/2016 117 Triglyceride (mg/dL) Date Value 11/23/2016 86 Mr. George indicates a history of hypertension and states that he is feeling well and denies any symptoms referable to elevated blood pressure. Specifically denies headache, chest pain, palpitations, dyspnea and peripheral edema. Patient denies any side effects of his medication(s) and is compliant with their regimen. Last 3 Encounter BP Readings: Date: BP: 11/01/2017 138/82 10/12/2017 138/86 07/27/2017 130/70 He watches his diet for sodium, low fat and low cholesterol some of the time. He does check BP's generally- see above. 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 PAST MEDICAL HISTORY Diagnosis Date - Cataract b/l, eye exam 05/29/13 - CTS (carpal tunnel syndrome) 10/2013 b/l, chronic, Dr. 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 Mazin Hinojosa Neuro, likely from DM and Vitamin B12 defic - Stroke ([facility]) 10/01/13 - Ulnar neuropathy 10/2013 b/l, chronic, Dr. Mazin Hinojosa EMG - Vitamin D deficiency 11/2013 PAST SURGICAL HISTORY Procedure Laterality Date - DISCISSION,2ND CATARACT,LASER 06/07/2013 Yag Capsulotomy-Right eye - LASER, SECONDARY CATARACT 2006 OU - PAST SURGICAL HISTORY OF 02/2013 Amputation Right Gt toe Social History Marital status: Single Spouse name: Years of education: Number of children: 3 Occupational History Occupation Employer Comment [employer] Social History Main Topics Smoking status: Never Smoker Smokeless status: Former User Types: Chew Alcohol use: Yes 12.0 oz/week 8 Cans of Beer (12oz) per week Drug use: No Sexual activity: Yes Partners with: Female FAMILY HISTORY Problem Relation Age of Onset - Diabetes Mother - Heart Father Allergies: ALLERGIES Allergen Reactions - Lipitor [Atorvastat* Contraindication-Medical Surgical Elevated LFTs and elevated CK level - Metformin Diarrhea Current Meds: gabapentin (NEURONTIN) 300 mg capsule TAKE TWO CAPSULES BY MOUTH THREE TIMES DAILY Cholecalciferol, Vitamin D3, 5,000 unit cap TAKE ONE CAPSULE BY MOUTH ONCE DAILY ketoconazole (NIZORAL) 2 % shampoo Apply 1 application to affected area once daily as needed. ammonium lactate (LAC-HYDRIN) 12 % cream APPLY CREAM TOPICALLY TO AFFECTED AREA ONCE DAILY ketoconazole (NIZORAL) 2 % cream APPLY CREAM TOPICALLY TO AFFECTED AREA ONCE DAILY ON FACE RASH diflorasone 0.05 % cream APPLY CREAM TO AFFECTED AREA TWICE DAILY NEEDED FOR RASH HUMALOG KWIKPEN 100 unit/mL inpn INJECT 12 TO 20 UNITS SUBCUTANEOUSLY WITH MEALS DIRECTED diflorasone 0.05 % cream APPLY CREAM TO AFFECTED AREA TWICE DAILY NEEDED FOR RASH ketoconazole (NIZORAL) 2 % cream APPLY CREAM TOPICALLY TO AFFECTED AREA ONCE DAILY ON FACE RASH desonide (TRIDESILON) 0.05 % cream APPLY TO AFFECTED AREA ONCE DAILY NEEDED FOR FACE RASH insulin glargine (BASAGLAR KWIKPEN) 100 unit/mL (3 mL) inpn Inject 20 Units subcutaneously daily at bedtime. Indications: Diabetes Mellitus methocarbamol (ROBAXIN) 500 mg tablet Take 1 tablet by mouth three times daily as needed (muscle spasm). ketoconazole (NIZORAL) 2 % cream APPLY TO FACE RASH ONCE DAILY zaapnaqft-V6-imA51-algal oil (METANX, ALGAL OIL,) 3 mg-35 mg-2 mg -90.314 mg cap Take 1 capsule by mouth once daily. Cetirizine 10 mg cap Take 1 capsule by mouth once daily. insulin needles, DISPOSABLE, (BD INSULIN PEN NEEDLE UF) 31 gauge x 5/16ANDquot; ndle USE TO GIVE INSULIN INJECTIONS 4 TIMES DAILY HUMALOG KWIKPEN 100 unit/mL inpn INJECT 12 TO 20 UNITS SUBCUTANEOUSLY WITH MEALS DIRECTED FREESTYLE LANCETS [facility] 3 TO 4 TIMES DAILY TO TEST BLOOD GLUCOSE nortriptyline (PAMELOR) 50 mg capsule TAKE ONE CAPSULE BY MOUTH ONCE DAILY AT BEDTIME blood sugar diagnostic (FREESTYLE LITE STRIPS) test strip Test blood sugar(s) 3 times daily. Dx: Type 2 DM - Uncontrolled E11.65 Insulin: Yes tiZANidine (ZANAFLEX) 4 mg tablet Take 1 tablet by mouth every 6 hours as needed. AVL-Aepxltkbjrvsx-Hhkmoqq-Caff 162 mg-110 mg -152 mg-32.4 mg tab Take by mouth. aspirin 325 mg tablet Take 325 mg by mouth once daily. Blood Pressure Cuff - Home Use BLOOD PRESSURE CUFF FOR HOME USE. DX: LABILE BLOOD PRESSURE Biotin 1 mg tab Take 1 tablet by mouth once daily. celecoxib (CELEBREX) 200 mg capsule Take 1 capsule by mouth once daily. ketoconazole (NIZORAL) 2 % shampoo Apply 1 application to affected area once daily as needed (scalp). Ammonium,Pot.and Sodium Lactates (AMLACTIN) crea Apply 1 Tube to affected area once daily. baclofen (LIORESAL) 20 mg tablet Tadalafil (CIALIS) 20 mg tab(s) Take 1 tablet by mouth once daily. Alcohol Swabs (ALCOHOL PREP PADS) padm Apply 1 application to affected area four times daily. Blood-Glucose Meter (FREESTYLE LITE METER) monitoring kit Freestyle LITE Meter Kit - Dx: Type 2 DM - Controlled E11.9 Vardenafil HCl (LEVITRA) 20 mg tablet Take 20 mg by mouth as needed (daily as needed). lisinopril (ZESTRIL,PRINIVIL) 30 mg tablet Take 1 tablet by mouth once daily. amLODIPine (NORVASC) 5 mg tablet Take 1 tablet by mouth once daily. Urea 10 % lotion Apply 1 application to affected area three times daily. For feet cyanocobalamin 1,000 mcg/mL soln Inject 1 mL intramuscularly once every month. HYDROcodone-acetaminophen (NORCO) 5-325 mg per tablet Take 1 tablet by mouth every 8 hours as needed for Pain. cyanocobalamin, Vitamin B12, (VITAMIN B-12) 1,000 mcg/mL soln Inject 1 mL intramuscularly one time only for 1 dose. cyanocobalamin, Vitamin B12, (VITAMIN B-12) 1,000 mcg/mL soln Inject 1 mL intramuscularly once every month. 1 DOSE MONTHLY Aspirin 81 mg tab Take 81 mg by mouth once daily. Review of Systems: The remainder of the review of systems is negative. PE: 11/01/17 1226 BP: 138/82 Pulse: 92 Resp: 16 Temp: 36.3 ?C (97.3 ?F) TempSrc: Right Tympanic Weight: 89.4 kg (197 lb) Gen: AANDamp;OX3, NAD, non-toxic appearing HEENT: PERRLA, EOMs intact b/l, nares without drainage, pharynx without erythema, exudate, lesions, or drainage. Uvula midline. EAC b/l with purulent drainage and discomfort, TM appear inflamed. Neck: No LAD, no thyromegaly, no meningismus. CV: RRR, no murmur Lungs: CTA b/l, no wheezing Thoracic spine TTP midline lower and upper lumbar ttp over spinous processes Left knee clicking/popping on flex / ext on passive ROM, left lateral knee profound joint swelling and instability. 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 Type 2 diabetes mellitus with diabetic polyneuropathy, with long-term current use of insulin (HCC) - ICD9: 250.60, 357.2, V58.67, ICD10: E11.42, Z79.4 (primary diagnosis) Controlled. - Continue current medications - Check HgA1C and fasting lipid panel - HGB A1C 2. Sweating increase - ICD9: 780.8, ICD10: R61 - labs as ordered, likely related to MECH[employer]IC [employer] related changes - HGB A1C - COMP METABOLIC PANEL - TSH BLD - T4 FREE/FREE THYROX - T3 BLD - CORTISOL BLD 3. Vitamin B12 deficiency - ICD9: 266.2, ICD10: E53.8 - continue monthly vitamin B12 injections - CYANOCOBALAMIN (VIT B-12) 1,000 MCG/ML INJECTION SOLUTION 4. Raynaud's phenomenon without gangrene - ICD9: 443.0, ICD10: I73.00 - add on low dose CCB for symptoms, also will help his HTN - AMLODIPINE 5 MG TABLET 5. Hypertension, essential - ICD9: 401.9, ICD10: I10 - suboptimal control - Increase lisinopril (Zestril/Prinivil) - Encouraged dietary sodium restriction/DASH diet - Recommended regular aerobic exercise. - Recommend home blood pressure monitoring, to bring results in on next visit - Goal of BP ANDlt;130/80 - LISINOPRIL 30 MG TABLET 6. Dry skin - ICD9: 701.1, ICD10: L85.3 - UREA 10 % LOTION 7. Restless leg - ICD9: 333.94, ICD10: G25.81 - labs as below, likely multifactorial - MAGNESIUM BLD - FERRITIN BLD Avery Escalante DO To ER if develops chest pain, shortness of breath, or severe worsening of symptoms. Discussed risks, benefits, alternatives, and potential side effects of medications. Patient expressed understanding and agreed with the plan. Avery Escalante DO [address] [place] [address] Referring Provider: AVERY ESCALANTE [[id number]] Allergies As of Date: 11/01/2017 Noted Allergy Reaction LIPITOR (ATORVASTATIN CALCIUM) 01/07/2015 15 - Contraindication- Medical [facility]lsen* Comments: Elevated LFTs and elevated CK level METFORMIN 03/01/2013 6 - Diarrhea Date Reviewed: 11/01/2017 Reviewed by: Lindsey Cochran LPN - Fully Assessed Reason for Visit: Follow Up [171] Cmt: 3 months Primary Visit Diagnosis:Type 2 diabetes mellitus with diabetic polyneuropathy, with long-term current use of insulin (HCC) [E11.42, Z79.4] Other Visit Diagnoses:Sweating increase [R61] Vitamin B12 deficiency [E53.8] Raynaud's phenomenon without gangrene [I73.00] Hypertension, essential [I10] Dry skin [L85.3] Restless leg [G25.81] Order(s):HGB A1C [VCASP4W] Order #: [id number] FUTURE COMP METABOLIC PANEL [SQCMP] Order #: [id number] FUTURE TSH BLD [SQTSH] Order #: [id number] FUTURE T4 FREE/FREE THYROX [SQFT4] Order #: [id number] FUTURE T3 BLD [SQT3] Order #: [id number] FUTURE CORTISOL BLD [SQCOR] Order #: [id number] FUTURE HGB A1C [FOXKL6L] Order #: [id number] FUTURE lisinopril (ZESTRIL,PRINIVIL) 30 mg tabletTake 1 tablet by mouth once daily.Disp: 30 tabletRfl: 5 amLODIPine (NORVASC) 5 mg tabletTake 1 tablet by mouth once daily.Disp: 30 tabletRfl: 5 Urea 10 % lotionApply 1 application to affected area three times daily. For feetDisp: 227 mLRfl: 3 MAGNESIUM BLD [SQMG1] Order #: [id number] FUTURE FERRITIN BLD [SQFERR] Order #: [id number] FUTURE cyanocobalamin 1,000 mcg/mL solnInject 1 mL intramuscularly once every month.Disp: 1 mLRfl: 12 Prescriptions as of 11/01/2017 Sig: GABAPENTIN 300 MG CAPSULE TAKE TWO CAPSULES BY MOUTH TH* CHOLECALCIFEROL (VITAMIN D3) * TAKE ONE CAPSULE BY MOUTH ONC* KETOCONAZOLE 2 % SHAMPOO Apply 1 application to affect* AMMONIUM LACTATE 12 % TOPICAL* APPLY CREAM TOPICALLY TO AFF* KETOCONAZOLE 2 % TOPICAL CREAM APPLY CREAM TOPICALLY TO AFF* DIFLORASONE 0.05 % TOPICAL CR* APPLY CREAM TO AFFECTED AREA * HUMALOG KWIKPEN 100 UNIT/ML S* INJECT 12 TO 20 UNITS SUBCUTA* DIFLORASONE 0.05 % TOPICAL CR* APPLY CREAM TO AFFECTED AREA * KETOCONAZOLE 2 % TOPICAL CREAM APPLY CREAM TOPICALLY TO AFF* DESONIDE 0.05 % TOPICAL CREAM APPLY TO AFFECTED AREA ONCE D* INSULIN GLARGINE 100 UNIT/ML * Inject 20 Units subcutaneousl* METHOCARBAMOL 500 MG TABLET Take 1 tablet by mouth three * KETOCONAZOLE 2 % TOPICAL CREAM APPLY TO FACE RASH ONCE DAILY LEVOMEFOLATE CA 3 MG-B6 35 MG* Take 1 capsule by mouth once * CETIRIZINE 10 MG CAPSULE Take 1 capsule by mouth once * PEN NEEDLE, DIABETIC 31 GAUGE* USE TO GIVE INSULIN INJECTION* HUMALOG KWIKPEN 100 UNIT/ML S* INJECT 12 TO 20 UNITS SUBCUTA* FREESTYLE LANCETS 28 GAUGE USE DIRECTED 3 TO 4 TIMES * NORTRIPTYLINE 50 MG CAPSULE TAKE ONE CAPSULE BY MOUTH ONC* BLOOD SUGAR DIAGNOSTIC STRIPS Test blood sugar(s) 3 times d* TIZANIDINE 4 MG TABLET Take 1 tablet by mouth every * ASA 162 MG-ACETAMINOPHEN 110 * Take by mouth. ASPIRIN 325 MG TABLET Take 325 mg by mouth once fabienne* COMPOUNDED PRESCRIPTION BLOOD PRESSURE CUFF FOR HOME * BIOTIN 1 MG TABLET Take 1 tablet by mouth once d* CELECOXIB 200 MG CAPSULE Take 1 capsule by mouth once * KETOCONAZOLE 2 % SHAMPOO Apply 1 application to affect* AMMONIUM LACTATE-SODIUM LACTA* Apply 1 Tube to affected area* BACLOFEN 20 MG TABLET TADALAFIL 20 MG TABLET Take 1 tablet by mouth once d* ALCOHOL SWABS Apply 1 application to affect* BLOOD-GLUCOSE METER KIT Freestyle LITE Meter Kit - Dx* VARDENAFIL 20 MG TABLET Take 20 mg by mouth as needed* LISINOPRIL 30 MG TABLET Take 1 tablet by mouth once d* AMLODIPINE 5 MG TABLET Take 1 tablet by mouth once d* UREA 10 % LOTION Apply 1 application to affect* CYANOCOBALAMIN (VIT B-12) 1,0* Inject 1 mL intramuscularly o* HYDROCODONE 5 MG-ACETAMINOPHE* Take 1 tablet by mouth every * ASPIRIN 81 MG TABLET Take 81 mg by mouth once mele* Medication notes this encounter CYANOCOBALAMIN (VIT B-12) 1,000 MCG/ML INJECTION SOLUTION >> Lindsey Cochran LPN 11/01/2017 1:32 PM >> LINDSEY COCHRAN LPN Nov 01, 2017 1:32 PM The patient is here for an injection of Vitamin B12 (Cyanocobalamin). Dose: 1000 mcg/ 1 ml Amount wasted: none. 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] INVALID FOR*02/16/2013 Seasonal allergies [J30.2] INVALID FOR* Diabetes mellitus [E11.9] INVALID FOR* Diabetic ulcer of toe [E11.621, L97.509] INVALID FOR*01/03/2014 Osteomyelitis [M86.9] INVALID FOR*12/12/2013 Diabetes with neurologic complications [E11.49] INVALID FOR* Hyperlipidemia [E78.5] INVALID FOR* Diabetes type 2, controlled [E11.9] INVALID FOR* Lower back pain [M54.5] INVALID FOR* Hearing loss [H91.90] INVALID FOR* Dizziness [R42] INVALID FOR* Other musculoskeletal symptoms referable to mixon*INVALID FOR* Hereditary and idiopathic peripheral neuropathy*INVALID FOR* Vitamin B12 deficiency [E53.8] INVALID FOR* PAD (peripheral artery disease) (HCC) [I73.9] INVALID FOR* Small vessel disease (HCC) [I99.9] INVALID FOR* DM (diabetes mellitus), type 2 with neurologica*INVALID FOR* Diabetes mellitus with background retinopathy (*INVALID FOR*07/13/2016 Type 1 diabetes mellitus with mild nonprolifera*INVALID FOR*06/08/2016 Other vitreous opacities - Both Eyes [H43.399] INVALID FOR* Lens replaced by other means - Both Eyes [Z96.1]INVALID FOR*07/13/2016 CVA (cerebral vascular accident) ([facility]) [I63.9] INVALID FOR* Type 2 diabetes, controlled, with neuropathy (H*INVALID FOR* Type 2 diabetes mellitus with diabetic neuropat*INVALID FOR*01/29/2016 Type 2 diabetes mellitus with diabetic polyneur*INVALID FOR* After-cataract obscuring vision [H26.499] INVALID FOR* Pseudophakia of both eyes [Z96.1] INVALID FOR* Hyperopia [H52.00] INVALID FOR* Astigmatism, regular [H52.229] INVALID FOR* Vitreous floaters of both eyes [H43.393] INVALID FOR* Meibomian gland dysfunction (MGD) of upper and *INVALID FOR* Prescriptions ordered this encounter Disp Refills Start End LISINOPRIL 30 MG TABLET 30 t* 5 11/01/2017 Route: ORAL Sig: Take 1 tablet by mouth once daily. AMLODIPINE 5 MG TABLET 30 t* 5 11/01/2017 Route: ORAL Sig: Take 1 tablet by mouth once daily. UREA 10 % LOTION 227 * 3 11/01/2017 12/01/2017 Route: TOPICAL Sig: Apply 1 application to affected area three times daily. For feet CYANOCOBALAMIN (VIT B-12) 1,000 MCG/* 1 mL 12 11/01/2017 Class: In Office Route: INTRAMUSCULA Sig: Inject 1 mL intramuscularly once every month. Medications Discontinued During This Encounter lisinopril (ZESTRIL, PRINIVIL) 5 mg * 04/27/2017 11/01/2017 Class: Med Update Route: ORAL Sig: Take 1 tablet by mouth once daily. Take with 10 mg tablet to total 15 mg a day Disc: Reason for discontinue is not on file. lisinopril (ZESTRIL, PRINIVIL) 5 mg * 30 t* 14 08/30/2017 11/01/2017 Cmt: Please consider 90 day supplies to promote better adherence Sig: TAKE ONE TABLET BY MOUTH ONCE DAILY Disc: Reason for discontinue is not on file. lisinopril (ZESTRIL, PRINIVIL) 20 mg* 30 t* 1 09/27/2017 11/01/2017 Cmt: Please consider 90 day supplies to promote better adherence Sig: TAKE ONE TABLET BY MOUTH ONCE DAILY Disc: Reason for discontinue is not on file. lisinopril (ZESTRIL, PRINIVIL) 10 mg* 30 t* 3 03/04/2017 11/01/2017 Route: ORAL Sig: Take 1 tablet by mouth once daily. Disc: Reason for discontinue is not on file. cyanocobalamin 1,000 mcg/mL soln 1 mL 12 10/05/2016 11/01/2017 Class: In Office Route: INTRAMUSCULAR Sig: Inject 1 mL intramuscularly once every month. Disc: Reason for discontinue is not on file. Encounter Status:Closed by AVERY ESCALANTE DO on 11/01/17 OBSOLETE Observed: 11/01/2017 Status: COMPLETED Source: [place] 12:00 AM [facility] REPOSITORY Refill (FAMPWS) RICK GEORGE JR. ([id number]) 1960 M Date Time Provider Department 11/01/17 [facility] During your visit today, we recorded the following information about you: Allergies As of Date: 11/01/2017 Noted Allergy Reaction LIPITOR (ATORVASTATIN CALCIUM) 01/07/2015 15 - Contraindication- Medical Olsen* Comments: Elevated LFTs and elevated CK level METFORMIN 03/01/2013 6 - Diarrhea Date Reviewed: 11/01/2017 Reviewed by: Lindsey Cochran LPN - Fully Assessed Reason for Visit: Refill Request [94] Visit Diagnosis:Brittle nails [L60.3] Order(s):Biotin 1 mg tabTake 1 tablet by mouth once daily.Disp: 30 tabletRfl: 11 aspirin 325 mg tabletTake 1 tablet by mouth once daily.Disp: 90 tabletRfl: 3 Prescriptions as of 11/01/2017 Sig: GABAPENTIN 300 MG CAPSULE TAKE TWO CAPSULES BY MOUTH TH* CHOLECALCIFEROL (VITAMIN D3) * TAKE ONE CAPSULE BY MOUTH ONC* LISINOPRIL 30 MG TABLET Take 1 tablet by mouth once d* AMLODIPINE 5 MG TABLET Take 1 tablet by mouth once d* UREA 10 % LOTION Apply 1 application to affect* CYANOCOBALAMIN (VIT B-12) 1,0* Inject 1 mL intramuscularly o* LISINOPRIL 10 MG TABLET LISINOPRIL 20 MG TABLET BIOTIN 1 MG TABLET Take 1 tablet by mouth once d* ASPIRIN 325 MG TABLET Take 1 tablet by mouth once d* KETOCONAZOLE 2 % SHAMPOO Apply 1 application to affect* AMMONIUM LACTATE 12 % TOPICAL* APPLY CREAM TOPICALLY TO AFF* KETOCONAZOLE 2 % TOPICAL CREAM APPLY CREAM TOPICALLY TO AFF* DIFLORASONE 0.05 % TOPICAL CR* APPLY CREAM TO AFFECTED AREA * HUMALOG KWIKPEN 100 UNIT/ML S* INJECT 12 TO 20 UNITS SUBCUTA* DIFLORASONE 0.05 % TOPICAL CR* APPLY CREAM TO AFFECTED AREA * KETOCONAZOLE 2 % TOPICAL CREAM APPLY CREAM TOPICALLY TO AFF* DESONIDE 0.05 % TOPICAL CREAM APPLY TO AFFECTED AREA ONCE D* INSULIN GLARGINE 100 UNIT/ML * Inject 20 Units subcutaneousl* METHOCARBAMOL 500 MG TABLET Take 1 tablet by mouth three * KETOCONAZOLE 2 % TOPICAL CREAM APPLY TO FACE RASH ONCE DAILY LEVOMEFOLATE CA 3 MG-B6 35 MG* Take 1 capsule by mouth once * CETIRIZINE 10 MG CAPSULE Take 1 capsule by mouth once * PEN NEEDLE, DIABETIC 31 GAUGE* USE TO GIVE INSULIN INJECTION* HUMALOG KWIKPEN 100 UNIT/ML S* INJECT 12 TO 20 UNITS SUBCUTA* FREESTYLE LANCETS 28 GAUGE USE DIRECTED 3 TO 4 TIMES * NORTRIPTYLINE 50 MG CAPSULE TAKE ONE CAPSULE BY MOUTH ONC* BLOOD SUGAR DIAGNOSTIC STRIPS Test blood sugar(s) 3 times d* TIZANIDINE 4 MG TABLET Take 1 tablet by mouth every * ASA 162 MG-ACETAMINOPHEN 110 * Take by mouth. COMPOUNDED PRESCRIPTION BLOOD PRESSURE CUFF FOR HOME * CELECOXIB 200 MG CAPSULE Take 1 capsule by mouth once * KETOCONAZOLE 2 % SHAMPOO Apply 1 application to affect* AMMONIUM LACTATE-SODIUM LACTA* Apply 1 Tube to affected area* BACLOFEN 20 MG TABLET TADALAFIL 20 MG TABLET Take 1 tablet by mouth once d* ALCOHOL SWABS Apply 1 application to affect* BLOOD-GLUCOSE METER KIT Freestyle LITE Meter Kit - Dx* HYDROCODONE 5 MG-ACETAMINOPHE* Take 1 tablet by mouth every * VARDENAFIL 20 MG TABLET Take 20 mg by mouth as needed* CYANOCOBALAMIN (VIT B-12) 1,0* Inject 1 mL intramuscularly o* CYANOCOBALAMIN (VIT B-12) 1,0* Inject 1 mL intramuscularly o* ASPIRIN 81 MG TABLET Take 81 mg by mouth once mele* Problem List As Of Date 11/01/2017 Noted Resolved Diabetes 1.5, 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] INVALID FOR*02/16/2013 Seasonal allergies [J30.2] INVALID FOR* Diabetes mellitus [E11.9] INVALID FOR* Diabetic ulcer of toe [E11.621, L97.509] INVALID FOR*01/03/2014 Osteomyelitis [M86.9] INVALID FOR*12/12/2013 Diabetes with neurologic complications [E11.49] INVALID FOR* Hyperlipidemia [E78.5] INVALID FOR* Diabetes type 2, controlled [E11.9] INVALID FOR* Lower back pain [M54.5] INVALID FOR* Hearing loss [H91.90] INVALID FOR* Dizziness [R42] INVALID FOR* Other musculoskeletal symptoms referable to mixon*INVALID FOR* Hereditary and idiopathic peripheral neuropathy*INVALID FOR* Vitamin B12 deficiency [E53.8] INVALID FOR* PAD (peripheral artery disease) ([facility]) [I73.9] INVALID FOR* Small vessel disease ([facility]) [I99.9] INVALID FOR* DM (diabetes mellitus), type 2 with neurologica*INVALID FOR* Diabetes mellitus with background retinopathy (*INVALID FOR*07/13/2016 Type 1 diabetes mellitus with mild nonprolifera*INVALID FOR*06/08/2016 Other vitreous opacities - Both Eyes [H43.399] INVALID FOR* Lens replaced by other means - Both Eyes [Z96.1]INVALID FOR*07/13/2016 CVA (cerebral vascular accident) ([facility]) [I63.9] INVALID FOR* Type 2 diabetes, controlled, with neuropathy (H*INVALID FOR* Type 2 diabetes mellitus with diabetic neuropat*INVALID FOR*01/29/2016 Type 2 diabetes mellitus with diabetic polyneur*INVALID FOR* After-cataract obscuring vision [H26.499] INVALID FOR* Pseudophakia of both eyes [Z96.1] INVALID FOR* Hyperopia [H52.00] INVALID FOR* Astigmatism, regular [H52.229] INVALID FOR* Vitreous floaters of both eyes [H43.393] INVALID FOR* Meibomian gland dysfunction (MGD) of upper and *INVALID FOR* Prescriptions ordered this encounter Disp Refills Start End BIOTIN 1 MG TABLET 30 t* 11 11/01/2017 Route: ORAL Sig: Take 1 tablet by mouth once daily. ASPIRIN 325 MG TABLET 90 t* 3 11/01/2017 Route: ORAL Sig: Take 1 tablet by mouth once daily. Medications Discontinued During This Encounter Biotin 1 mg tab 30 t* 11 12/07/2016 11/01/2017 Route: ORAL Sig: Take 1 tablet by mouth once daily. Disc: Reason for discontinue is not on file. aspirin 325 mg tablet 11/01/2017 Class: Historical Med Route: ORAL Sig: Take 325 mg by mouth once daily. Disc: Reason for discontinue is not on file. Encounter Status:Closed by AVERY ESCALANTE DO on 11/01/17 OBSOLETE Observed: 10/31/2017 Status: COMPLETED Source: [place] 12:00 AM [facility] REPOSITORY Refill (INTMWS) RICK GEORGE JR. ([id number]) 1960 M Date Time Provider Department 10/31/17 AVERY ESCALANTE INTMWS During your visit today, we recorded the following information about you: Lee Sethi LPN 10/31/2017 4:12 PM Signed Patient has been identified by name and date of : Yes Pending Prescriptions Disp Refills GABAPENTIN 300 MG CAPSULE 180 capsule 1 Sig: TAKE TWO CAPSULES BY MOUTH THREE TIMES DAILY LESLIE: Yes CHOLECALCIFEROL (VITAMIN D3) 5,000 UNIT CAPSULE 30 capsule 5 Sig: TAKE ONE CAPSULE BY MOUTH ONCE DAILY LESLIE: Yes RX INSTRUCTIONS: Pharmacy initiated this request. No need to notify patient. Lee Jossie NICOLE Allergies As of Date: 10/31/2017 Noted Allergy Reaction LIPITOR (ATORVASTATIN CALCIUM) 01/07/2015 15 - Contraindication- Medical Olsen* Comments: Elevated LFTs and elevated CK level METFORMIN 03/01/2013 6 - Diarrhea Date Reviewed: 10/12/2017 Reviewed by: Lindsey Cochran LPN - Fully Assessed Reason for Visit: Refill Request [94] Order(s):gabapentin (NEURONTIN) 300 mg capsuleTAKE TWO CAPSULES BY MOUTH THREE TIMES DAILYDisp: 180 capsuleRfl: 3 Cholecalciferol, Vitamin D3, 5,000 unit capTAKE ONE CAPSULE BY MOUTH ONCE DAILYDisp: 30 capsuleRfl: 5 Prescriptions as of 10/31/2017 Sig: GABAPENTIN 300 MG CAPSULE TAKE TWO CAPSULES BY MOUTH TH* CHOLECALCIFEROL (VITAMIN D3) * TAKE ONE CAPSULE BY MOUTH ONC* KETOCONAZOLE 2 % SHAMPOO Apply 1 application to affect* AMMONIUM LACTATE 12 % TOPICAL* APPLY CREAM TOPICALLY TO AFF* LISINOPRIL 20 MG TABLET TAKE ONE TABLET BY MOUTH ONCE* KETOCONAZOLE 2 % TOPICAL CREAM APPLY CREAM TOPICALLY TO AFF* DIFLORASONE 0.05 % TOPICAL CR* APPLY CREAM TO AFFECTED AREA * HUMALOG KWIKPEN 100 UNIT/ML S* INJECT 12 TO 20 UNITS SUBCUTA* DIFLORASONE 0.05 % TOPICAL CR* APPLY CREAM TO AFFECTED AREA * KETOCONAZOLE 2 % TOPICAL CREAM APPLY CREAM TOPICALLY TO AFF* DESONIDE 0.05 % TOPICAL CREAM APPLY TO AFFECTED AREA ONCE D* LISINOPRIL 5 MG TABLET TAKE ONE TABLET BY MOUTH ONCE* INSULIN GLARGINE 100 UNIT/ML * Inject 20 Units subcutaneousl* METHOCARBAMOL 500 MG TABLET Take 1 tablet by mouth three * KETOCONAZOLE 2 % TOPICAL CREAM APPLY TO FACE RASH ONCE DAILY LEVOMEFOLATE CA 3 MG-B6 35 MG* Take 1 capsule by mouth once * CETIRIZINE 10 MG CAPSULE Take 1 capsule by mouth once * LISINOPRIL 5 MG TABLET Take 1 tablet by mouth once d* PEN NEEDLE, DIABETIC 31 GAUGE* USE TO GIVE INSULIN INJECTION* HUMALOG KWIKPEN 100 UNIT/ML S* INJECT 12 TO 20 UNITS SUBCUTA* FREESTYLE LANCETS 28 GAUGE USE DIRECTED 3 TO 4 TIMES * NORTRIPTYLINE 50 MG CAPSULE TAKE ONE CAPSULE BY MOUTH ONC* LISINOPRIL 10 MG TABLET Take 1 tablet by mouth once d* BLOOD SUGAR DIAGNOSTIC STRIPS Test blood sugar(s) 3 times d* TIZANIDINE 4 MG TABLET Take 1 tablet by mouth every * ASA 162 MG-ACETAMINOPHEN 110 * Take by mouth. ASPIRIN 325 MG TABLET Take 325 mg by mouth once fabienne* COMPOUNDED PRESCRIPTION BLOOD PRESSURE CUFF FOR HOME * BIOTIN 1 MG TABLET Take 1 tablet by mouth once d* CYANOCOBALAMIN (VIT B-12) 1,0* Inject 1 mL intramuscularly o* CELECOXIB 200 MG CAPSULE Take 1 capsule by mouth once * KETOCONAZOLE 2 % SHAMPOO Apply 1 application to affect* AMMONIUM LACTATE-SODIUM LACTA* Apply 1 Tube to affected area* BACLOFEN 20 MG TABLET TADALAFIL 20 MG TABLET Take 1 tablet by mouth once d* ALCOHOL SWABS Apply 1 application to affect* BLOOD-GLUCOSE METER KIT Freestyle LITE Meter Kit - Dx* HYDROCODONE 5 MG-ACETAMINOPHE* Take 1 tablet by mouth every * VARDENAFIL 20 MG TABLET Take 20 mg by mouth as needed* ASPIRIN 81 MG TABLET Take 81 mg by mouth once mele* Problem List As Of Date 10/31/2017 Noted Resolved Diabetes 1.5, 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] INVALID FOR*02/16/2013 Seasonal allergies [J30.2] INVALID FOR* Diabetes mellitus [E11.9] INVALID FOR* Diabetic ulcer of toe [E11.621, L97.509] INVALID FOR*01/03/2014 Osteomyelitis [M86.9] INVALID FOR*12/12/2013 Diabetes with neurologic complications [E11.49] INVALID FOR* Hyperlipidemia [E78.5] INVALID FOR* Diabetes type 2, controlled [E11.9] INVALID FOR* Lower back pain [M54.5] INVALID FOR* Hearing loss [H91.90] INVALID FOR* Dizziness [R42] INVALID FOR* Other musculoskeletal symptoms referable to mixon*INVALID FOR* Hereditary and idiopathic peripheral neuropathy*INVALID FOR* Vitamin B12 deficiency [E53.8] INVALID FOR* PAD (peripheral artery disease) (HCC) [I73.9] INVALID FOR* Small vessel disease (HCC) [I99.9] INVALID FOR* DM (diabetes mellitus), type 2 with neurologica*INVALID FOR* Diabetes mellitus with background retinopathy (*INVALID FOR*07/13/2016 Type 1 diabetes mellitus with mild nonprolifera*INVALID FOR*06/08/2016 Other vitreous opacities - Both Eyes [H43.399] INVALID FOR* Lens replaced by other means - Both Eyes [Z96.1]INVALID FOR*07/13/2016 CVA (cerebral vascular accident) (HCC) [I63.9] INVALID FOR* Type 2 diabetes, controlled, with neuropathy (H*INVALID FOR* Type 2 diabetes mellitus with diabetic neuropat*INVALID FOR*01/29/2016 Type 2 diabetes mellitus with diabetic polyneur*INVALID FOR* After-cataract obscuring vision [H26.499] INVALID FOR* Pseudophakia of both eyes [Z96.1] INVALID FOR* Hyperopia [H52.00] INVALID FOR* Astigmatism, regular [H52.229] INVALID FOR* Vitreous floaters of both eyes [H43.393] INVALID FOR* Meibomian gland dysfunction (MGD) of upper and *INVALID FOR* Prescriptions ordered this encounter Disp Refills Start End GABAPENTIN 300 MG CAPSULE 180 * 3 11/01/2017 12/01/2017 Cmt: Please consider 90 day supplies to promote better adherence Sig: TAKE TWO CAPSULES BY MOUTH THREE TIMES DAILY CHOLECALCIFEROL (VITAMIN D3) 5,000 U* 30 c* 5 11/01/2017 Cmt: Please consider 90 day supplies to promote better adherence Sig: TAKE ONE CAPSULE BY MOUTH ONCE DAILY Medications Discontinued During This Encounter gabapentin (NEURONTIN) 300 mg capsule 180 * 1 08/16/2017 11/01/2017 Cmt: Please consider 90 day supplies to promote better adherence Sig: TAKE TWO CAPSULES BY MOUTH THREE TIMES DAILY Disc: Reason for discontinue is not on file. Cholecalciferol, Vitamin D3, 5,000 u* 30 c* 5 03/30/2017 11/01/2017 Route: ORAL Sig: Take 1 capsule by mouth once daily. Disc: Reason for discontinue is not on file. Encounter Status:Closed by AVERY ESCALANTE DO on 11/01/17 BEDSIDE GLUCOSE Collected: 10/24/2017 Status: F Source: [place] 12:31 PM [facility] REPOSITORY TYPE CODE TESTS RESULT OUT OF RANGE REFERENCE UNITS LAB L501.080 70-110 mg/dL Normal BEDSIDE GLU 107 Result Comment: MANAGEMENT OF PATIENT CARE PER NURSING PROTOCOL Performed By: #### L501.080 #### [place] [facility] Laboratory Point of Care [facility] [place] [address] BEDSIDE GLUCOSE Collected: 10/24/2017 Status: F Source: [place] 11:52 AM [facility] REPOSITORY TYPE CODE TESTS RESULT OUT OF RANGE REFERENCE UNITS LAB L501.080 70-110 mg/dL Normal BEDSIDE GLU 71 Result Comment: MANAGEMENT OF PATIENT CARE PER NURSING PROTOCOL Performed By: #### L501.080 #### [facility] Point of Care [address] [place] [address] DISCHARGE INSTRUCTION Observed: 10/24/2017 Status: F Source: [place] 11:35 AM [facility] REPOSITORY [facility] Medical Records Department [address] [place] [address] Instructions for Home/Discharge Instructions 10/24/17 1130 MR#: [id number] Acct: [id number] Name: RICK GEORGE Rep #: [id number] : 1960 57 From: Jose Alberto Gaspar DO PCP: Avery Escalante DO [place] [facility] [place] Diet: No Restrictions Discharge Activity: May Not Drive, May Shower - POD 3, Use Crutches - 50% weight bearing Weight Bearing Status: Partial weight bearing - 50% left Keep extremity elevated above heart level: Left Leg Call your doctor if your incision/area has: Continuous Slow Oozing, Sudden Increased Bleeding, Increased Pain/ Swelling, Increased Redness, Foul Smelling Discharge Call your doctor if you observe: Fever of 101 or Higher, Coldness, Increased Pain, Numbness or Tingling, Change in Color Change Dressing in (Days):: 3 Remove Dressing in (days):: 3 Cleanse incision/area with: Soap AND Water Allergies/Adverse Reactions: Allergies atorvastatin Adverse Reaction (Verified 01/13/17 15:59) Unknown metformin Adverse Reaction (Verified 01/13/17 14:01) Diarrhea Medications to take at Discharge Lisinopril [Zestril] 5 mg PO DAILY #30 tablet 10/08/13 Gabapentin [Neurontin] 600 mg PO TIDCM 11/07/14 Tizanidine HCl [Zanaflex] 4 mg PO DAILY 11/07/14 Cetirizine HCl [Zyrtec] 10 mg PO DAILY #1 tablet 01/24/15 Ammonium Lactate [Amlactin] 57 gm TP PRN PRN 10/04/17 Baclofen 60 mg PO DAILY 10/04/17 Celecoxib [Celebrex] 200 mg PO DAILY 10/04/17 Cholecalciferol (Vitamin D3) [Vitamin D3] 5,000 unit PO DAILY 10/04/17 Cyanocobalamin [Vitamin B12] 1,000 mcg IM Q30D 10/04/17 Insulin Glargine [Lantus SoloStar Pen] 15 units SC QHS 10/04/17 Insulin Lispro [Humalog] 12 - 20 unit SC ACHS 10/04/17 Levomefolate/B6/B12/Algal Oil [Metanx Capsule] 1 each PO DAILY 10/04/17 Nortriptyline HCl 50 mg PO QHS 10/04/17 TraMADol [Ultram] 50 mg PO Q4H PRN PRN 10/04/17 Aspirin 325 mg PO DAILY@0800 10/21/17 Hydrocodone Bitart/Apap 5-325 [Cuney 5/325] 1 - 2 tablet PO Q6H PRN PRN #40 tablet 10/24/17 The following prescriptions were given: Hydrocodone Bitart/Apap 5-325 [Cuney 5/325] 1 - 2 tablet PO Q6H PRN PRN #40 tablet PRN Reason: Mild-Moderate (pain scale 1-5) Please Follow Up With: Jose Alberto Gaspra DO 10/24/17 1135 <Electronically signed by Jose Alberto Gaspar DO> Date Jose Alberto Gaspar DO CC: Avery Escalante DO CHIROPRACTIC REPORT Observed: 10/24/2017 Status: F Source: [place] 10:42 AM [facility] [address] [place] [address] OFFICE VISIT Date of Service: 10/20/17 MR#: [id number] Acct: [id number] Name: RICK GEORGE Rep #: [id number] : 1960 Provider: Elizabeth Stevens D.C. Age/Sex: 57/M Location: [facility] Status: Signed Intake Vital Signs10/20/17 Height 6 ft 10/20/17 Weight: 198 lb 10/20/17 Body Mass Index (BMI) 26.8 Intake Visit Reasons: back pain Is patient in pain?: Yes Allergies atorvastatin Adverse Reaction (Verified 01/13/17 15:59) Unknown metformin Adverse Reaction (Verified 01/13/17 14:01) Diarrhea Medications Lisinopril [Zestril] 5 mg PO DAILY #30 tab 10/08/13 [Rx Confirmed 10/04/17] Gabapentin [Neurontin] 600 mg PO TIDCM 11/07/14 [History Confirmed 10/04/17] Tizanidine HCl [Zanaflex] 4 mg PO DAILY 11/07/14 [History Confirmed 10/04/17] Cetirizine HCl [Zyrtec] 10 mg PO DAILY #1 tab 11/09/14 [Rx Confirmed 10/04/17] Ammonium Lactate [Amlactin] 57 gm TP PRN PRN 10/04/17 [History Confirmed 10/04/17] Baclofen 60 mg PO DAILY 10/04/17 [History Confirmed 10/04/17] Celecoxib [Celebrex] 200 mg PO DAILY 10/04/17 [History Confirmed 10/04/17] Cholecalciferol (Vitamin D3) [Vitamin D3] 5,000 unit PO DAILY 10/04/17 [History Confirmed 10/04/17] Cyanocobalamin [Vitamin B12] 1,000 mcg IM Q30D 10/04/17 [History Confirmed 10/04/17] Hydrocodone/Acetaminophen [Cuney 5-325 Tablet] 1 ea PO PRN PRN 10/04/17 [History Confirmed 10/04/17] Insulin Glargine [Lantus (BKC)] 15 units SC QHS 10/04/17 [History Confirmed 10/04/17] Insulin Lispro [Humalog] 12 - 20 unit SC ACHS 10/04/17 [History Confirmed 10/04/17] Levomefolate/B6/B12/Algal Oil [Metanx Capsule] 1 ea PO DAILY 10/04/17 [History Confirmed 10/04/17] Nortriptyline HCl 50 mg PO QHS 10/04/17 [History Confirmed 10/04/17] TraMADol [Ultram (G)] 50 mg PO Q4H PRN PRN 10/04/17 [History Confirmed 10/04/17] Aspirin 325 mg PO DAILY@0800 10/21/17 [History Confirmed 10/21/17] PFSH Medical History Thoracic neuritis (Acute) Segmental and somatic dysfunction of lumbar region (Acute) Segmental and somatic dysfunction of cervical region (Acute) Segmental and somatic dysfunction of thoracic region (Acute) Diabetes mellitus type 2 with complications (Chronic) Hypertension (Chronic) Neuropathy (Chronic) Cerebrovascular disease (Chronic) Cellulitis lft foot failed outpatient tx (Acute) Diabetic foot ulcer associated with type 2 diabetes mellitus (Acute) Diabetes (Acute) Environmental allergies (Acute) H/O stroke associated with blood clotting tendency (Acute) Acute left-sided weakness (Resolved) Left sided numbness (Resolved) Muscle wasting disorder (Resolved) Family History Other Arthritis Hypertension Social History Smoking Status: Current every day smoker HPI back pain : Chief Complaint: back pain Visit Number: 1 Referral source: Add over in OT Details: RICK GEORGE is a 57 year old M who presents with back pain. Over the past three years the patients pain has increasingly become worse with pain radiating from his neck down to his low back. Rick states that his neck pain comes and goes and is described as a tight and deep ache, although his low back pain is constant. The low back pain is described as a tight and sharp ache that at times radiates into the hips and upper thighs. The patient denies any numbness or tingling. Recently Rick has been dealing with L sided rib pain, after seeing his primary care doctor she stated that he may have a rib out. The pain wraps around his entire L thoracic area causing increased pain when breathing couging and sneezing. Onset: 07/18/17 Location: back pain Aggravating or associated factors: bending, wallking, coughing, and sneezing. Pain Quality: aching, dull, sharp ROS Musc Reports system reviewed and no additional complaints, except as docu, Reports as per HPI Details: Patient is having knee surgery next week that is unrelated to condition I'm seeing him for today. Neuro Yes system reviewed and no additional complaints, except as docu Exam Musc General: Yes joint tenderness (C5, C6, T6, T7, T8, L4, L5); no normal posture (anterior head carriage) or normal gait (favoring left leg) Cervical Spine: loss of normal cervical lordosis, pain with cervical ROM with anterior flexion and with extension, cervical spasm, cervical ROM abnormal lateral flexion to the right decreased, extension decreased and anterior flexion decreased Thoracic/Lumbar Spine: thoracic and lumbar spine normal to inspection, pain with thoraco-lumbar ROM with forward flexion, with lateral flexion to the left and other (extension), paraspinal tenderness on the left in the mid thoracic and in the lower lumbar, thoraco-lumbar ROM limited with forward flexion, with lateral flexion to the left and with rotation to the left Ortho Test CERVICAL Compression pain: Negative Distraction pain: relief Hubert's pain: Negative Valsalvas: Negative Shoulder depression pain: Left THORACIC Kemps: Left Schepelmanns pain: Left Aponte: Negative LUMBAR Kemps: Left Valsalvas: Negative SLR: Negative (difficulty to perform due to unrelated injury) Iliac Compression: Negative Office Procedures Chiropractic Treatments Procedures Manipulation: 3-4 regions (C6, T2, T7, T10, L5) Electrical Stimulation: 15 mins Location: thoracic Traction, Mechanical: Yes Details: traction: 15min, thoraco/lumbar Assessment AND Plan Problems 1. Segmental and somatic dysfunction of cervical region M99.01 2. Segmental and somatic dysfunction of lumbar region M99.03 3. Thoracic neuritis M54.14 Plan Provide treatment today and follow up after knee surgery. Orders Orders: Plan Detail Goals Decrease pain and spasm Increase ROM Barriers Work requirements. Follow Up 1 Month 10/24/17 1042 <Electronically signed by Elizabeth Stevens D.C.> Date Elizabeth Stevens D.C. Cosigner Signature: Date (if applicable) CC: BEDSIDE GLUCOSE Collected: 10/24/2017 Status: F Source: [place] 9:13 AM [facility] REPOSITORY TYPE CODE TESTS RESULT OUT OF RANGE REFERENCE UNITS LAB L501.080 70-110 mg/dL Normal BEDSIDE GLU 87 Result Comment: MANAGEMENT OF PATIENT CARE PER NURSING PROTOCOL Performed By: #### L501.080 #### [facility] Point of Care [address] [place] [address] KNEE 1 OR 2 VIEWS Observed: 10/24/2017 Status: F Source: [place] 12:23 AM [facility] REPOSITORY [facility] Imaging Services [address] [place] [address] Knee 1 or 2 Views MR#: [id number] Acct: [id number] Name: RICK GEORGE Rep #: [id number] : 1960 M 57 From: Chapo Viramontes MD PCP: Avery Escalante DO [place] [facility] [place]: Knee 1 or 2 Views Date of Exam: 10/24/17 Exam# [id number] Ordering Dr: Jose Alberto Gaspar DO STUDY: X-RAY - LEFT KNEE REASON FOR EXAM: Male, 57 years old. Arthroscopy. Femoral condyle subchondral plasty. TECHNIQUE: Single coned-down view(s) of the knee. COMPARISON: None. FINDINGS: Intraoperative imaging provided for arthroscopy. RAD/Knee 1 or 2 Views IMPRESSION: Intraoperative imaging provided for arthroscopy. Electronically Signed: Chapo Viramontes MD at 15:33 EST Tel [phone], Service support , CC: Jose Alberto Gaspar DO; Avery Escalante DO Animal Technician: Signed PROGRESS Observed: 10/12/2017 Status: COMPLETED Source: [place] 4:38 PM [facility] [place] REPOSITORY O ID: [id number] Author: Avery Escalante Service: (none) Author Type: Physician Type: Progress Notes Filed: 10/12/2017 4:42 PM Note Text: CC: Rick George Jr. is a 57 year old male who presents to the office for preoperative clearance HPI Here in office today for pre operative clearance for left knee arthroscopy with medial condyle subcondroplasty for left knee pain and injury. Will have surgery on 10/24/17. 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 Diabetes has been well controlled, no CP or dyspnea or dizziness/LH or palpitations. Still with chronic neck pain and cervical radiculopathy, hasn't gotten a 2nd opinon by spine surgeon yet. PAST MEDICAL HISTORY Diagnosis Date - Cataract b/l, eye exam 05/29/13 - CTS (carpal tunnel syndrome) 10/2013 b/l, chronic, Dr. 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 Mazin Hinojosa Neuro, likely from DM and Vitamin B12 defic - Stroke ([facility]) 10/01/13 - Ulnar neuropathy 10/2013 b/l, chronic, Dr. Mazin Hinojosa EMG - Vitamin D deficiency 11/2013 PAST SURGICAL HISTORY Procedure Laterality Date - DISCISSION,2ND CATARACT,LASER 06/07/2013 Yag Capsulotomy-Right eye - LASER, SECONDARY CATARACT 2006 OU - PAST SURGICAL HISTORY OF 02/2013 Amputation Right Gt toe Social History: Social History Substance Use Topics - Smoking status: Never Smoker - Smokeless tobacco: Former User Types: Chew - Alcohol use 12.0 oz/week 8 Cans of Beer (12oz) per week FAMILY HISTORY Problem Relation Age of Onset - Diabetes Mother - Heart Father Current Outpatient prescriptions: ammonium lactate (LAC-HYDRIN) 12 % cream APPLY CREAM TOPICALLY TO AFFECTED AREA ONCE DAILY lisinopril (ZESTRIL, PRINIVIL) 20 mg tablet TAKE ONE TABLET BY MOUTH ONCE DAILY ketoconazole (NIZORAL) 2 % cream APPLY CREAM TOPICALLY TO AFFECTED AREA ONCE DAILY ON FACE RASH diflorasone 0.05 % cream APPLY CREAM TO AFFECTED AREA TWICE DAILY NEEDED FOR RASH HUMALOG KWIKPEN 100 unit/mL inpn INJECT 12 TO 20 UNITS SUBCUTANEOUSLY WITH MEALS DIRECTED diflorasone 0.05 % cream APPLY CREAM TO AFFECTED AREA TWICE DAILY NEEDED FOR RASH ketoconazole (NIZORAL) 2 % cream APPLY CREAM TOPICALLY TO AFFECTED AREA ONCE DAILY ON FACE RASH desonide (TRIDESILON) 0.05 % cream APPLY TO AFFECTED AREA ONCE DAILY NEEDED FOR FACE RASH lisinopril (ZESTRIL, PRINIVIL) 5 mg tablet TAKE ONE TABLET BY MOUTH ONCE DAILY gabapentin (NEURONTIN) 300 mg capsule TAKE TWO CAPSULES BY MOUTH THREE TIMES DAILY insulin glargine (BASAGLAR KWIKPEN) 100 unit/mL (3 mL) inpn Inject 20 Units subcutaneously daily at bedtime. Indications: Diabetes Mellitus methocarbamol (ROBAXIN) 500 mg tablet Take 1 tablet by mouth three times daily as needed (muscle spasm). ketoconazole (NIZORAL) 2 % cream APPLY TO FACE RASH ONCE DAILY [id number]-algal oil (METANX, ALGAL OIL,) 3 mg-35 mg-2 mg -90.314 mg cap Take 1 capsule by mouth once daily. Cetirizine 10 mg cap Take 1 capsule by mouth once daily. lisinopril (ZESTRIL, PRINIVIL) 5 mg tablet Take 1 tablet by mouth once daily. Take with 10 mg tablet to total 15 mg a day Cholecalciferol, Vitamin D3, 5,000 unit cap Take 1 capsule by mouth once daily. insulin needles, DISPOSABLE, (BD INSULIN PEN NEEDLE UF) 31 gauge x 5/16 ndle USE TO GIVE INSULIN INJECTIONS 4 TIMES DAILY HUMALOG KWIKPEN 100 unit/mL inpn INJECT 12 TO 20 UNITS SUBCUTANEOUSLY WITH MEALS DIRECTED FREESTYLE LANCETS 28 gauge misc USE DIRECTED 3 TO 4 TIMES DAILY TO TEST BLOOD GLUCOSE nortriptyline (PAMELOR) 50 mg capsule TAKE ONE CAPSULE BY MOUTH ONCE DAILY AT BEDTIME lisinopril (ZESTRIL, PRINIVIL) 10 mg tablet Take 1 tablet by mouth once daily. blood sugar diagnostic (FREESTYLE LITE STRIPS) test strip Test blood sugar(s) 3 times daily. Dx: Type 2 DM - Uncontrolled E11.65 Insulin: Yes tiZANidine (ZANAFLEX) 4 mg tablet Take 1 tablet by mouth every 6 hours as needed. AWX-Bbayvckpddxte-Kgjjuzq-Caff 162 mg-110 mg -152 mg-32.4 mg tab Take by mouth. aspirin 325 mg tablet Take 325 mg by mouth once daily. Blood Pressure Cuff - Home Use BLOOD PRESSURE CUFF FOR HOME USE. DX: LABILE BLOOD PRESSURE Biotin 1 mg tab Take 1 tablet by mouth once daily. cyanocobalamin 1,000 mcg/mL soln Inject 1 mL intramuscularly once every month. celecoxib (CELEBREX) 200 mg capsule Take 1 capsule by mouth once daily. ketoconazole (NIZORAL) 2 % shampoo Apply 1 application to affected area once daily as needed (scalp). Ammonium,Pot.and Sodium Lactates (AMLACTIN) crea Apply 1 Tube to affected area once daily. baclofen (LIORESAL) 20 mg tablet Tadalafil (CIALIS) 20 mg tab(s) Take 1 tablet by mouth once daily. Alcohol Swabs (ALCOHOL PREP PADS) padm Apply 1 application to affected area four times daily. Blood-Glucose Meter (FREESTYLE LITE METER) monitoring kit Freestyle LITE Meter Kit - Dx: Type 2 DM - Controlled E11.9 HYDROcodone-acetaminophen (NORCO) 5-325 mg per tablet Take 1 tablet by mouth every 8 hours as needed for Pain. Vardenafil HCl (LEVITRA) 20 mg tablet Take 20 mg by mouth as needed (daily as needed). Aspirin 81 mg tab Take 81 mg by mouth once daily. ketoconazole (NIZORAL) 2 % shampoo Apply 1 application to affected area once daily as needed. Allergies: ALLERGIES Allergen Reactions - Lipitor [Atorvastat* Contraindication-Medical Surgical Elevated LFTs and elevated CK level - Metformin Diarrhea ROS: See HPI PE: 10/12/17 1515 BP: 138/86 Pulse: 96 Resp: 20 Temp: 36.6 ?C (97.8 ?F) TempSrc: Left Tympanic Weight: 93.9 kg (207 lb) Height: 177.8 cm (5' 10) Gen: AANDOX3, NAD, non-toxic appearing HEENT: PERRLA, EOMs intact b/l, nares without drainage, pharynx without erythema, exudate, lesions, or drainage. Uvula midline. EAC b/l normal, TM normal Neck: No LAD, no thyromegaly, no meningismus. CV: RRR, no murmur Lungs: CTA b/l, no wheezing Thoracic spine TTP midline lower and upper lumbar ttp over spinous processes Left knee clicking/popping on flex / ext on passive ROM, left lateral knee profound joint swelling and instability. 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 Pre-operative clearance - ICD9: V72.84, ICD10: Z01.818 (primary diagnosis) - okay for surgical clearance, reviewed labs and EKG, fax sent to Orthopedic surgeon office after exam today 2. Seborrheic dermatitis of scalp - ICD9: 690.18, ICD10: L21.9 - KETOCONAZOLE 2 % SHAMPOO Avery Escalante DO To ER if develops chest pain, shortness of breath, or severe worsening of symptoms. Discussed risks, benefits, alternatives, and potential side effects of medications. Patient expressed understanding and agreed with the plan. Avery Escalante DO [address] [place] [address] CNOV Observed: 10/12/2017 Status: COMPLETED Source: [place] 3:00 PM [facility] REPOSITORY Office Visit (FAMPWS) RICK GEORGE JR. ([id number]) 1960 M Date Time Provider Department 10/12/17 3:00 PM AVERY ESCALANTE During your visit today, we recorded the following information about you: Temperature Pulse Respiration Blood pressure 97.8 degrees 96/minute 20/minute 138/86 Weight Height 93.9 kg 1.778 m Avery Escalante DO 10/12/2017 4:42 PM Signed CC: Rick George Jr. is a 57 year old male who presents to the office for preoperative clearance HPI Here in office today for pre operative clearance for left knee arthroscopy with medial condyle subcondroplasty for left knee pain and injury. Will have surgery on 10/24/17. 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 Diabetes has been well controlled, no CP or dyspnea or dizziness/LH or palpitations. Still with chronic neck pain and cervical radiculopathy, hasn't gotten a 2nd opinon by spine surgeon yet. PAST MEDICAL HISTORY Diagnosis Date - Cataract b/l, eye exam 05/29/13 - CTS (carpal tunnel syndrome) 10/2013 b/l, chronic, Dr. 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 Mazin Hinojosa Neuro, likely from DM and Vitamin B12 defic - Stroke ([facility]) 10/01/13 - Ulnar neuropathy 10/2013 b/l, chronic, Dr. Mazin Hinojosa EMG - Vitamin D deficiency 11/2013 PAST SURGICAL HISTORY Procedure Laterality Date - DISCISSION,2ND CATARACT,LASER 06/07/2013 Yag Capsulotomy-Right eye - LASER, SECONDARY CATARACT 2006 OU - PAST SURGICAL HISTORY OF 02/2013 Amputation Right Gt toe Social History: Social History Substance Use Topics - Smoking status: Never Smoker - Smokeless tobacco: Former User Types: Chew - Alcohol use 12.0 oz/week 8 Cans of Beer (12oz) per week FAMILY HISTORY Problem Relation Age of Onset - Diabetes Mother - Heart Father Current Outpatient prescriptions: ammonium lactate (LAC-HYDRIN) 12 % cream APPLY CREAM TOPICALLY TO AFFECTED AREA ONCE DAILY lisinopril (ZESTRIL, PRINIVIL) 20 mg tablet TAKE ONE TABLET BY MOUTH ONCE DAILY ketoconazole (NIZORAL) 2 % cream APPLY CREAM TOPICALLY TO AFFECTED AREA ONCE DAILY ON FACE RASH diflorasone 0.05 % cream APPLY CREAM TO AFFECTED AREA TWICE DAILY NEEDED FOR RASH HUMALOG KWIKPEN 100 unit/mL inpn INJECT 12 TO 20 UNITS SUBCUTANEOUSLY WITH MEALS DIRECTED diflorasone 0.05 % cream APPLY CREAM TO AFFECTED AREA TWICE DAILY NEEDED FOR RASH ketoconazole (NIZORAL) 2 % cream APPLY CREAM TOPICALLY TO AFFECTED AREA ONCE DAILY ON FACE RASH desonide (TRIDESILON) 0.05 % cream APPLY TO AFFECTED AREA ONCE DAILY NEEDED FOR FACE RASH lisinopril (ZESTRIL, PRINIVIL) 5 mg tablet TAKE ONE TABLET BY MOUTH ONCE DAILY gabapentin (NEURONTIN) 300 mg capsule TAKE TWO CAPSULES BY MOUTH THREE TIMES DAILY insulin glargine (BASAGLAR KWIKPEN) 100 unit/mL (3 mL) inpn Inject 20 Units subcutaneously daily at bedtime. Indications: Diabetes Mellitus methocarbamol (ROBAXIN) 500 mg tablet Take 1 tablet by mouth three times daily as needed (muscle spasm). ketoconazole (NIZORAL) 2 % cream APPLY TO FACE RASH ONCE DAILY [id number]-algal oil (METANX, ALGAL OIL,) 3 mg-35 mg-2 mg -90.314 mg cap Take 1 capsule by mouth once daily. Cetirizine 10 mg cap Take 1 capsule by mouth once daily. lisinopril (ZESTRIL, PRINIVIL) 5 mg tablet Take 1 tablet by mouth once daily. Take with 10 mg tablet to total 15 mg a day Cholecalciferol, Vitamin D3, 5,000 unit cap Take 1 capsule by mouth once daily. insulin needles, DISPOSABLE, (BD INSULIN PEN NEEDLE UF) 31 gauge x 5/16ANDquot; ndle USE TO GIVE INSULIN INJECTIONS 4 TIMES DAILY HUMALOG KWIKPEN 100 unit/mL inpn INJECT 12 TO 20 UNITS SUBCUTANEOUSLY WITH MEALS DIRECTED FREESTYLE LANCETS 28 gauge misc USE DIRECTED 3 TO 4 TIMES DAILY TO TEST BLOOD GLUCOSE nortriptyline (PAMELOR) 50 mg capsule TAKE ONE CAPSULE BY MOUTH ONCE DAILY AT BEDTIME lisinopril (ZESTRIL, PRINIVIL) 10 mg tablet Take 1 tablet by mouth once daily. blood sugar diagnostic (FREESTYLE LITE STRIPS) test strip Test blood sugar(s) 3 times daily. Dx: Type 2 DM - Uncontrolled E11.65 Insulin: Yes tiZANidine (ZANAFLEX) 4 mg tablet Take 1 tablet by mouth every 6 hours as needed. JAO-Esuqabckmebsw-Hsdfruz-Caff 162 mg-110 mg -152 mg-32.4 mg tab Take by mouth. aspirin 325 mg tablet Take 325 mg by mouth once daily. Blood Pressure Cuff - Home Use BLOOD PRESSURE CUFF FOR HOME USE. DX: LABILE BLOOD PRESSURE Biotin 1 mg tab Take 1 tablet by mouth once daily. cyanocobalamin 1,000 mcg/mL soln Inject 1 mL intramuscularly once every month. celecoxib (CELEBREX) 200 mg capsule Take 1 capsule by mouth once daily. ketoconazole (NIZORAL) 2 % shampoo Apply 1 application to affected area once daily as needed (scalp). Ammonium,Pot.and Sodium Lactates (AMLACTIN) crea Apply 1 Tube to affected area once daily. baclofen (LIORESAL) 20 mg tablet Tadalafil (CIALIS) 20 mg tab(s) Take 1 tablet by mouth once daily. Alcohol Swabs (ALCOHOL PREP PADS) padm Apply 1 application to affected area four times daily. Blood-Glucose Meter (FREESTYLE LITE METER) monitoring kit Freestyle LITE Meter Kit - Dx: Type 2 DM - Controlled E11.9 HYDROcodone-acetaminophen (NORCO) 5-325 mg per tablet Take 1 tablet by mouth every 8 hours as needed for Pain. Vardenafil HCl (LEVITRA) 20 mg tablet Take 20 mg by mouth as needed (daily as needed). Aspirin 81 mg tab Take 81 mg by mouth once daily. ketoconazole (NIZORAL) 2 % shampoo Apply 1 application to affected area once daily as needed. Allergies: ALLERGIES Allergen Reactions - Lipitor [Atorvastat* Contraindication-Medical Surgical Elevated LFTs and elevated CK level - Metformin Diarrhea ROS: See HPI PE: 10/12/17 1515 BP: 138/86 Pulse: 96 Resp: 20 Temp: 36.6 ?C (97.8 ?F) TempSrc: Left Tympanic Weight: 93.9 kg (207 lb) Height: 177.8 cm (5' 10ANDquot;) Gen: AANDamp;OX3, NAD, non-toxic appearing HEENT: PERRLA, EOMs intact b/l, nares without drainage, pharynx without erythema, exudate, lesions, or drainage. Uvula midline. EAC b/l normal, TM normal Neck: No LAD, no thyromegaly, no meningismus. CV: RRR, no murmur Lungs: CTA b/l, no wheezing Thoracic spine TTP midline lower and upper lumbar ttp over spinous processes Left knee clicking/popping on flex / ext on passive ROM, left lateral knee profound joint swelling and instability. 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 Pre-operative clearance - ICD9: V72.84, ICD10: Z01.818 (primary diagnosis) - okay for surgical clearance, reviewed labs and EKG, fax sent to Orthopedic surgeon office after exam today 2. Seborrheic dermatitis of scalp - ICD9: 690.18, ICD10: L21.9 - KETOCONAZOLE 2 % SHAMPOO Avery Escalante DO To ER if develops chest pain, shortness of breath, or severe worsening of symptoms. Discussed risks, benefits, alternatives, and potential side effects of medications. Patient expressed understanding and agreed with the plan. Avery Escalante DO [address] [place] [address] Referring Provider: AVERY ESCALANTE [[id number]] Allergies As of Date: 10/12/2017 Noted Allergy Reaction LIPITOR (ATORVASTATIN CALCIUM) 01/07/2015 15 - Contraindication- Medical Olsen* Comments: Elevated LFTs and elevated CK level METFORMIN 03/01/2013 6 - Diarrhea Date Reviewed: 10/12/2017 Reviewed by: Lindsey Cochran LPN - Fully Assessed Reason for Visit: Pre-Op Exam [87] Cmt: Left knee Surgery Primary Visit Diagnosis:Pre-operative clearance [Z01.818] Other Visit Diagnosis:Seborrheic dermatitis of scalp [L21.9] Order(s):ketoconazole (NIZORAL) 2 % shampooApply 1 application to affected area once daily as needed.Disp: 120 mLRfl: 5 Prescriptions as of 10/12/2017 Sig: AMMONIUM LACTATE 12 % TOPICAL* APPLY CREAM TOPICALLY TO AFF* LISINOPRIL 20 MG TABLET TAKE ONE TABLET BY MOUTH ONCE* KETOCONAZOLE 2 % TOPICAL CREAM APPLY CREAM TOPICALLY TO AFF* DIFLORASONE 0.05 % TOPICAL CR* APPLY CREAM TO AFFECTED AREA * HUMALOG KWIKPEN 100 UNIT/ML S* INJECT 12 TO 20 UNITS SUBCUTA* DIFLORASONE 0.05 % TOPICAL CR* APPLY CREAM TO AFFECTED AREA * KETOCONAZOLE 2 % TOPICAL CREAM APPLY CREAM TOPICALLY TO AFF* DESONIDE 0.05 % TOPICAL CREAM APPLY TO AFFECTED AREA ONCE D* LISINOPRIL 5 MG TABLET TAKE ONE TABLET BY MOUTH ONCE* GABAPENTIN 300 MG CAPSULE TAKE TWO CAPSULES BY MOUTH TH* INSULIN GLARGINE 100 UNIT/ML * Inject 20 Units subcutaneousl* METHOCARBAMOL 500 MG TABLET Take 1 tablet by mouth three * KETOCONAZOLE 2 % TOPICAL CREAM APPLY TO FACE RASH ONCE DAILY LEVOMEFOLATE CA 3 MG-B6 35 MG* Take 1 capsule by mouth once * CETIRIZINE 10 MG CAPSULE Take 1 capsule by mouth once * LISINOPRIL 5 MG TABLET Take 1 tablet by mouth once d* CHOLECALCIFEROL (VITAMIN D3) * Take 1 capsule by mouth once * PEN NEEDLE, DIABETIC 31 GAUGE* USE TO GIVE INSULIN INJECTION* HUMALOG KWIKPEN 100 UNIT/ML S* INJECT 12 TO 20 UNITS SUBCUTA* FREESTYLE LANCETS 28 GAUGE USE DIRECTED 3 TO 4 TIMES * NORTRIPTYLINE 50 MG CAPSULE TAKE ONE CAPSULE BY MOUTH ONC* LISINOPRIL 10 MG TABLET Take 1 tablet by mouth once d* BLOOD SUGAR DIAGNOSTIC STRIPS Test blood sugar(s) 3 times d* TIZANIDINE 4 MG TABLET Take 1 tablet by mouth every * ASA 162 MG-ACETAMINOPHEN 110 * Take by mouth. ASPIRIN 325 MG TABLET Take 325 mg by mouth once fabienne* COMPOUNDED PRESCRIPTION BLOOD PRESSURE CUFF FOR HOME * BIOTIN 1 MG TABLET Take 1 tablet by mouth once d* CYANOCOBALAMIN (VIT B-12) 1,0* Inject 1 mL intramuscularly o* CELECOXIB 200 MG CAPSULE Take 1 capsule by mouth once * KETOCONAZOLE 2 % SHAMPOO Apply 1 application to affect* AMMONIUM LACTATE-SODIUM LACTA* Apply 1 Tube to affected area* BACLOFEN 20 MG TABLET TADALAFIL 20 MG TABLET Take 1 tablet by mouth once d* ALCOHOL SWABS Apply 1 application to affect* BLOOD-GLUCOSE METER KIT Freestyle LITE Meter Kit - Dx* HYDROCODONE 5 MG-ACETAMINOPHE* Take 1 tablet by mouth every * VARDENAFIL 20 MG TABLET Take 20 mg by mouth as needed* ASPIRIN 81 MG TABLET Take 81 mg by mouth once mele* KETOCONAZOLE 2 % SHAMPOO Apply 1 application to affect* Problem List As Of Date 10/12/2017 Noted Resolved Diabetes 1.5, 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] INVALID FOR*02/16/2013 Seasonal allergies [J30.2] INVALID FOR* Diabetes mellitus [E11.9] INVALID FOR* Diabetic ulcer of toe [E11.621, L97.509] INVALID FOR*01/03/2014 Osteomyelitis [M86.9] INVALID FOR*12/12/2013 Diabetes with neurologic complications [E11.49] INVALID FOR* Hyperlipidemia [E78.5] INVALID FOR* Diabetes type 2, controlled [E11.9] INVALID FOR* Lower back pain [M54.5] INVALID FOR* Hearing loss [H91.90] INVALID FOR* Dizziness [R42] INVALID FOR* Other musculoskeletal symptoms referable to mixon*INVALID FOR* Hereditary and idiopathic peripheral neuropathy*INVALID FOR* Vitamin B12 deficiency [E53.8] INVALID FOR* PAD (peripheral artery disease) ([facility]) [I73.9] INVALID FOR* Small vessel disease ([facility]) [I99.9] INVALID FOR* DM (diabetes mellitus), type 2 with neurologica*INVALID FOR* Diabetes mellitus with background retinopathy (*INVALID FOR*07/13/2016 Type 1 diabetes mellitus with mild nonprolifera*INVALID FOR*06/08/2016 Other vitreous opacities - Both Eyes [H43.399] INVALID FOR* Lens replaced by other means - Both Eyes [Z96.1]INVALID FOR*07/13/2016 CVA (cerebral vascular accident) ([facility]) [I63.9] INVALID FOR* Type 2 diabetes, controlled, with neuropathy (H*INVALID FOR* Type 2 diabetes mellitus with diabetic neuropat*INVALID FOR*01/29/2016 Type 2 diabetes mellitus with diabetic polyneur*INVALID FOR* After-cataract obscuring vision [H26.499] INVALID FOR* Pseudophakia of both eyes [Z96.1] INVALID FOR* Hyperopia [H52.00] INVALID FOR* Astigmatism, regular [H52.229] INVALID FOR* Vitreous floaters of both eyes [H43.393] INVALID FOR* Meibomian gland dysfunction (MGD) of upper and *INVALID FOR* Prescriptions ordered this encounter Disp Refills Start End KETOCONAZOLE 2 % SHAMPOO 120 * 5 10/12/2017 11/11/2017 Route: TOPICAL Sig: Apply 1 application to affected area once daily as needed. Encounter Status:Closed by AVERY ESCALANTE DO on 10/12/17 12 LEAD ELECTROCARDIOGRAM Observed: 10/07/2017 Status: F Source: [place] 7:45 AM [facility] REPOSITORY [facility] Cardiovascular Services [address] [place] [address] 12 Lead EKG 10/04/17 1557 MR#: [id number] Acct: [id number] Name: RICK GEORGE Rep #: [id number] : 1960 57 From: Shiv Hansen MD Attending Dr: Surjit Alonzo Status: PRE SDC Ordering Dr: Surjit Edmonds PA-C Date: 10/04/17 [place] [facility] [place] M C Admitted: Test Reason : PRE-OP Blood Pressure : / mmHG Vent. Rate : 090 BPM Atrial Rate : 090 BPM P-R Int : 176 ms QRS Dur : 086 ms QT Int : 344 ms P-R-T Axes : 041 -14 054 degrees QTc Int : 420 ms Normal sinus rhythm Inferior infarct , age undetermined Abnormal ECG Confirmed by SHIV HANSEN ([id number]), supervising film or videotape editor TIERA CHATMAN ([id number]) on 10/07/2017 7:44:58 AM Referred By: KENDAL Confirmed By:SHIV HANSEN 10/07/17 0745 Date Shiv Hansen MD CC: Avery Escalante DO Signed ALLERGIES ALLERGIES DATE TYPE / NAME / CODE REACTION SEVERITY SOURCE CODE 09/29/2018 Drug metformin/[id number] Diarrhea Unknown [place] Allergy/41 34(RXNORM) Community [id number]([facility]) Repository 09/29/2018 Drug atorvastatin/F0060 Unknown Unknown [place] Allergy/41 86070(RXNORM) Community [id number]([facility]) Repository 11/01/2017 Drug LLHVIAD-BVK-ORP OTHER: SEE C [place] Class/4195 REDUCTASE Clinic Main [address](SNOM INHIBITORS [place] [facility]) Repository 01/07/2015 DRUG ATORVASTATIN CONTRAINDICA [place] INGREDI/41 CALCIUM Clinic Main [id number]([facility]) Repository 03/01/2013 DRUG METFORMIN DIARRHEA [facility] INGREDI/41 Clinic Main [id number]([facility]) Repository [id number] ATORVASTATIN [facility] 06(SNOMED CALCIUM [facility]) Repository NG/[id number] METFORMIN [facility](SNOMED [facility]) Repository NG/[id number] [facility] 06(SNOMED REDUCTASE [facility]) INHIBITORS Repository ENCOUNTERS ENCOUNTERS ADMIT/DISCHARGE ACCOUNT NUMBER ADMITTING ENCOUNTER LOCATION SOURCE CLASS 10/04/2018 [id number] Ambulatory [place] [facility] ding:OT Repository 10/04/2018/10/04/20 [id number] Ambulatory [place] 18 [facility] ding:CR Repository 09/29/2018 [id number] Ambulatory [place] [facility] ding:LAB Repository 09/29/2018 [id number] Ambulatory [place] [facility] ding:DC Repository 09/29/2018/09/29/20 [id number] Ambulatory BMSBuilding: [place] 18 [facility] Repository 09/18/2018 [id number] [facility] Repository 09/15/2018/09/15/20 [id number] Ambulatory [place] [facility] 18 [facility] ding:CR Repository 09/11/2018/09/11/20 [id number] Ambulatory [address] Repository 08/23/2018/09/15/20 [id number] Ambulatory [place] 18 [facility] ding:DC Repository 08/16/2018/08/16/20 [id number] Ambulatory [place] 18 [facility] ding:DC Repository 08/16/2018/08/16/20 [id number] Ambulatory [place] 18 [facility] ding:CR Repository 08/11/2018/08/14/20 [id number] Ambulatory [address] Repository 07/27/2018 [id number] Ambulatory [place] [facility] ding:WC Repository 07/26/2018/07/26/20 [id number] Ambulatory [address] [place] Repository 07/21/2018/07/21/20 [id number] Ambulatory [address] [place] Repository 07/19/2018/07/20/20 [id number] Ambulatory [address] Repository 07/19/2018/07/19/20 [id number] Ambulatory BMSBuilding: [place] 18 B[facility] Repository 07/14/2018/07/16/20 [id number] Ambulatory [place] 18 [facility] ding:CR Repository 07/06/2018 [id number] Ambulatory [facility] ding:CR Repository 06/28/2018/06/28/20 [id number] Ambulatory [address] Repository 06/28/2018/07/16/20 [id number] Ambulatory [address] ding: Repository 06/28/2018 [id number] Ambulatory BMSBuilding: [facility] Repository 06/21/2018 [id number] Ambulatory BMSBuilding: [facility] Repository 06/15/2018/06/15/20 [id number] Ambulatory [address] Main [place] Repository 06/15/2018/06/16/20 [id number] Ambulatory [address] Repository 06/14/2018/06/15/20 [id number] Ambulatory [address] Repository 06/14/2018/06/16/20 [id number] Ambulatory [address] ding: Repository 06/14/2018 [id number] Ambulatory BMSBuilding: [facility] Repository 06/07/2018/06/07/20 [id number] Ambulatory [address] Repository 06/07/2018 [id number] Ambulatory BMSBuilding: [facility] Repository 05/31/2018 [id number] Ambulatory BMSBuilding: [facility] Repository 05/25/2018/05/25/20 [id number] Ambulatory [address] Other [place] Repository 05/25/2018/05/25/20 [id number] Ambulatory [address] MEDICAL Repository CENTERBuildi ng:AGCARDHWW 05/24/2018 [id number] Ambulatory BMSBuilding: [facility] Repository 05/10/2018/05/12/20 [id number] Ambulatory [address] Repository 05/08/2018/05/15/20 [id number] Ambulatory [address] Repository 05/05/2018/05/05/20 [id number] Ambulatory [address] Repository 05/03/2018/05/05/20 [id number] Ambulatory [address] Repository 04/28/2018/04/28/20 [id number] Ambulatory [facility] [place] Repository 04/28/2018/04/28/20 [id number] Ambulatory [facility] [place] Repository 04/28/2018/04/28/20 [id number] Ambulatory [facility] [place] Repository 04/28/2018/04/28/20 [id number] Ambulatory [place] [facility] Main [place] Repository 04/26/2018 [id number] Ambulatory [facility] ding: Repository 04/24/2018/04/25/20 [id number] Ambulatory [facility] [place] Repository 04/05/2018/04/07/20 [id number] Ambulatory [facility] [place] Repository 04/05/2018/04/07/20 [id number] Ambulatory [facility] [place] Repository 04/04/2018/04/14/20 [id number] Ambulatory [address] [place] Repository 04/04/2018/04/06/20 [id number] Inpatient [place] [address] Encounter [facility] [place] Repository 04/04/2018/04/04/20 [id number] Ambulatory [address] [place] Repository 04/03/2018/04/19/20 [id number] MARISELA FRANCISCO Inpatient [place] [address] Encounter [facility] [place] Repository 04/01/2018/04/03/20 [id number] [place] Inpatient [address] ding:Marcela Repository : [id number]: 1 04/01/2018 [id number] [place] Ambulatory BMSBuilding: [place] [facility]MS.[facility] Repository 04/01/2018 [id number] [place] Ambulatory BMSBuilding: [place] [facility]MS.[facility] Repository 04/01/2018 [id number] [place] Ambulatory BMSBuilding: [place] [facility]MS.[facility] Repository 04/01/2018 [id number] [place] Ambulatory BMSBuilding: [place] [facility]MS.[facility] Repository 04/01/2018 [id number] [place] Ambulatory BMSBuilding: [place] [facility]MS.[facility] Repository 04/01/2018 [id number] [place] Ambulatory BMSBuilding: [place] [facility]MS.[facility] Repository 04/01/2018/04/03/20 [id number] Ambulatory BMSBuilding: [address] Repository 03/30/2018/04/15/20 [id number] Ambulatory [address] ding: Repository 03/30/2018 [id number] Ambulatory BMSBuilding: [facility] Repository 03/20/2018/03/21/20 [id number] Ambulatory [address] Repository 03/16/2018/03/16/20 [id number] Ambulatory [address] ding: Repository 03/16/2018 [id number] Ambulatory BMSBuilding: [facility] Repository 03/09/2018 [id number] Ambulatory BMSBuilding: [facility] Repository 03/02/2018 [id number] Ambulatory BMSBuilding: [facility] Repository 02/23/2018 [id number] Ambulatory BMSBuilding: [facility] Repository 02/17/2018/04/06/20 [id number] Ambulatory [address] Repository 02/16/2018 [id number] Ambulatory BMSBuilding: [facility] Repository 02/09/2018 [id number] Ambulatory [facility] Repository 02/09/2018/02/14/20 [id number] Ambulatory [address] ding: Repository 02/09/2018 [id number] Ambulatory BMSBuilding: [facility] Repository 01/30/2018/02/01/20 [id number] Ambulatory [address] Repository 01/25/2018 [id number] Ambulatory [facility] Repository 01/18/2018/01/20/20 [id number] Ambulatory [address] Repository 01/18/2018 [id number] Ambulatory BMSBuilding: [facility] Repository 01/11/2018/01/15/20 [id number] Ambulatory [address] ding: Repository 01/11/2018 [id number] Ambulatory BMSBuilding: [place] [facility] Repository 01/04/2018 [id number] Ambulatory BMSBuilding: [place] [facility] Repository 12/19/2017/12/21/19 [id number] Ambulatory [address] Repository 12/14/2017/12/14/19 [id number] Ambulatory [place] [address] [place] [address] ding:PT Repository 11/21/2017/11/23/19 [id number] Ambulatory [address] Repository 11/14/2017/11/14/19 [id number] Ambulatory [address] Repository 11/10/2017 [id number] Ambulatory BMSBuilding: [place] [facility]MS.[facility] Repository 11/07/2017/11/07/19 [id number] Ambulatory [address] Repository 11/07/2017 [id number] Ambulatory BMSBuilding: [place] BMS.[facility] Repository 11/07/2017/11/10/19 [id number] Ambulatory [address] Repository 11/04/2017/11/04/19 [id number] Ambulatory [address] Repository 11/03/2017 [id number] Ambulatory BMSBuilding: [place] [facility]MS.[facility] Repository 11/01/2017/11/01/19 [id number] Ambulatory BMSBuilding: [place] 18 BMS.[facility] Repository 11/01/2017/11/01/19 [id number] Ambulatory [address] Repository 11/01/2017/11/02/19 [id number] Ambulatory [address] Repository 10/24/2017/10/24/19 [id number] Ambulatory [place] [facility] ding:SDC Repository 10/20/2017/10/20/19 [id number] Ambulatory [address] Repository 10/20/2017/10/20/19 [id number] Ambulatory [address] Repository 10/20/2017/10/20/19 [id number] Ambulatory BMSBuilding: [place] 18 [facility]MS.[facility] Repository 10/12/2017/10/13/20 [id number] Ambulatory [address] Repository PAYERS PAYERS ENCOUNTER GUARANTOR PAYER SUBSCRIBER SOURCE 10/04/2018 RICK CABRERA D [place] [id number] SR Insurance:CARESOURCEP PORTERDOB: [address] Number: [id number] [facility] 00151Twp: 330 [id number] Repository [phone] () Date:2016-02-15[address]ATTN: [place] [address]KT: 10/04/2018 Secondary NOT GIVENUNK [place] Insurance:SELF PAY [facility] Number: Effective Repository Date:2018-09-18 10/04/2018 RICK D Primary RICK Jayy [place] [id number] SR Insurance:CARESOURCEP PORTERDOB: [address] Number: [id number] [facility] [address]756Tdu: (168) [id number] Repository [phone] () Date:2018-07-06[address]ATTN: [place] [address]BO: 10/04/2018 Secondary NOT GIVENUNK [place] Insurance:SELF PAY [facility] Number: Effective Repository Date:2018-09-16 09/29/2018 RICK D Primary RICK Jayy [place] [id number] SR Insurance:CARESOURCEP PORTERDOB: [address] Number: [id number] Hospital [address]Qdh: 330 [id number] Repository [phone] () Date:2018-09-29[address]ATTN: [place] [address]XH: 09/29/2018 Secondary NOT GIVENUNK [place] Insurance:SELF PAY [facility] Number: Effective Repository Date:2018-09-29 09/29/2018 RICK D Primary RICK Jayy Fuentes [id number] SR Insurance:CARESOURCEP PORTERDOB: [address] Number: [id number] Hospital 248[address]Fxc: (315) [id number] Repository [phone] () Date:2018-08-01[address]ATTN: [place] [address]BF: 09/29/2018 Secondary NOT GIVENUNK [place] Insurance:SELF PAY [facility] Number: Effective Repository Date:2018-09-16 09/29/2018 RICK D Primary RICK Jayy [place] [id number] SR Insurance:CARESOURCEP PORTERDOB: [address] Number: [id number] [facility] [address]Mmy: 330 [id number] Repository [phone] (HP) Date:2018-09-27 [address]N: [place] [address]SM: 09/29/2018 Secondary NOT GIVENUNK [place] Insurance:SELF PAY [facility] Number: Effective Repository Date:2018-09-29 09/18/2018 RICK D Primary RICK Jayy [place] [id number] SR Insurance:CARESOURCEP PORTERDOB: [address] Number: [id number] [facility] [address]Nyt: (399) [id number] Repository [phone] (HP) Date:2018-09-18[address]ATTN: [place] [address]TB: 09/18/2018 Secondary NOT GIVENUNK [place] Insurance:SELF PAY [facility] Number: Effective Repository Date:2018-09-18 09/15/2018 RICK D Primary RICK D [place] [id number] SR Insurance:CARESOURCEP PORTERDOB: [address] Number: [id number] Hospital [address]878Umm: (915) [id number] Repository [phone] () Date:2018-07-06[address]ATTN: [place] [address]BM: 09/15/2018 Secondary NOT GIVENUNK [place] Insurance:SELF PAY [facility] Number: Effective Repository Date:2018-08-17 08/23/2018 RICK D Primary RICK D [place] [id number] SR Insurance:CARESOURCEP PORTERDOB: [address] Number: [id number] Hospital [address]Ubn: 330 [id number] Repository [phone] () Date:2018-08-01[address]ATTN: [place] [address]FC: 08/23/2018 Secondary NOT GIVENUNK [place] Insurance:SELF PAY [facility] Number: Effective Repository Date:2018-08-17 08/16/2018 RICK D Primary RICK D [place] [id number] SR Insurance:CARESOURCEP PORTERDOB: [address] Number: [id number] Hospital 715[address]Mxn: (959) [id number] Repository [phone] () Date:2018-08-01[address]ATTN: [place] [address]UV: 08/16/2018 Secondary NOT GIVENUNK [place] Insurance:SELF PAY [facility] Number: Effective Repository Date:2018-08-01 08/16/2018 RICK D Primary RICK D [place] [id number] SR Insurance:CARESOURCEP PORTERDOB: [address] Number: [id number] [facility] [address]375Thi: 330 [id number] Repository [phone] () Date:2018-07-06[address]ATTN: [place] [address]JI: 08/16/2018 Secondary NOT GIVENUNK [place] Insurance:SELF PAY [facility] Number: Effective Repository Date:2018-07-17 07/27/2018 RICK D Primary RICK D [place] [id number] SR Insurance:CARESOURCEP PORTERDOB: [address] Number: [id number] [facility] 28661Yvm: ([phone]) [id number] Repository [phone] () Date:2018-05-22[address]ATTN: [place] [address]MI: 07/27/2018 Secondary NOT GIVENUNK [place] Insurance:SELF PAY [facility] Number: Effective Repository Date:2018-07-17 07/19/2018 RICK D Primary RICK Jayy [place] [id number] SR Insurance:CARESOURCEP PORTERDOB: [address] Number: [id number] Hospital [address]Efq: (677) [id number] Repository [phone] (HP) Date:2018-07-14[address]ATTN: [place] [address]OH: 07/19/2018 Secondary NOT GIVENUNK [place] Insurance:SELF PAY [facility] Number: Effective Repository Date:2018-07-19 07/14/2018 RICK D Primary RICK Hope [place] [id number] SR Insurance:CARESOURCEP PORTERDOB: [address] Number: [id number] [facility] [address]Bxq: 330 [id number] Repository [phone] () Date:2018-07-06 [address]ATTN: [place] [address]WG: 07/14/2018 Secondary NOT GIVENUNK [place] Insurance:SELF PAY [facility] Number: Effective Repository Date:2018-07-06 07/06/2018 RICK D Primary RICK Jayy [place] [id number] SR Insurance:CARESOURCEP PORTERDOB: [address] Number: [id number] Hospital [address]131Jnu: (365) [id number] Repository [phone] () Date:2018-06-28 [address]ATTN: [place] [address]RA: 07/06/2018 Secondary NOT GIVENUNK [place] Insurance:SELF PAY [facility] Number: Effective Repository Date:2018-06-28 06/28/2018 RICK Primary RICK [place] [id number] SR Insurance:CARESOURCEP PORTERDOB: [address] Number: [id number] [facility] 92015Kik: ([phone]) [id number] Repository [phone] (HP) Date:2018-05-22 [address]ATTN: [place] [address]SC: 06/28/2018 Secondary NOT GIVENUNK [place] Insurance:SELF PAY [facility] Number: Effective Repository Date:2018-06-17 06/28/2018 [facility] RICK Fuentes [id number] SR Insurance:CARESOURCEP PORTERDOB: [address] Number: [id number] Hospital 36060Veh: (051) [id number] Repository [phone] (HP) Date:2018-05-22 [address]ATTN: [place] [address]RD: 06/28/2018 Secondary NOT GIVENUNK [place] Insurance:SELF PAY [facility] Number: Effective Repository Date:2018-06-28 06/21/2018 [facility] RICK Fuentes [id number] SR Insurance:CARESOURCEP PORTERDOB: [address] Number: [id number] Hospital [address]68[address]Moo: 330 [id number] Repository [phone] (HP) Date:2018-05-22 [address]ATTN: [place] [address]TY: 06/21/2018 Secondary NOT GIVENUNK [place] Insurance:SELF PAY [facility] Number: Effective Repository Date:2018-06-21 06/14/2018 [facility] RICK Fuentes [id number] SR Insurance:CARESOURCEP PORTERDOB: [address] Number: [id number] Hospital [address]Nme: (181) [id number] Repository [phone] (HP) Date:2018-05-22 [address]ATTN: [place] [address]OK: 06/14/2018 Secondary NOT GIVENUNK [place] Insurance:SELF PAY [facility] Number: Effective Repository Date:2018-05-22 06/14/2018 RICK Fuentes [id number] SR Insurance:CARESOURCEP PORTERDOB: Community [address] [place] [address] Number: [id number] Hospital 88[address]Ofz: 330 [id number] Repository [phone] () Date:2018-05-22 [address]ATTN: [place] [address]DZ: 06/14/2018 Secondary NOT GIVENUNK [place] Insurance:SELF PAY [facility] Number: Effective Repository Date:2018-06-14 06/07/2018 RICK Fuentes [id number] SR Insurance:CARESOURCEP PORTERDOB: [address] Number: [id number] Hospital [address]Mll: 330 [id number] Repository [phone] () Date:2018-05-22 [address]ATTN: [place] [address]KO: 06/07/2018 Secondary NOT GIVENUNK [place] Insurance:SELF PAY [facility] Number: Effective Repository Date:2018-06-07 05/31/2018 RICK Fuentes [id number] SR Insurance:CARESOURCEP PORTERDOB: [address] Number: [id number] Hospital [address]698Jou: (061) [id number] Repository [phone] () Date:2018-05-22 [address]ATTN: [place] [address]FQ: 05/31/2018 Secondary NOT GIVENUNK [place] Insurance:SELF PAY [facility] Number: Effective Repository Date:2018-05-31 05/25/2018 RICK Hope [facility]ARTURNAZANIN GILLIS: [facility] [id number] MEDICAIDPolicy [id number] Repository [address] Number: [address] [place] [address] [id number] [address]Hgf: (330) Date: [phone] () 05/24/2018 RICK Primary RICK Fuentes [id number] SR Insurance:CARESOURCEP PORTERDOB: Community [address] [place] [address] Number: [id number] Hospital 14815Ayy: (330) [id number] Repository [phone] () Date:2018-05-22[address]ATTN: [place] [address]WI: 05/24/2018 Secondary NOT GIVENUNK [place] Insurance:SELF PAY [facility] Number: Effective Repository Date:2018-05-24 04/26/2018 RICK Primary RICK Fuentes [id number] SR Insurance:CARESOURCEP PORTERDOB: [address] Number: [id number] Hospital 00138Ykq: (330) [id number] Repository [phone] () Date:2017-12-28[address]ATTN: [place] [address]TN: 04/26/2018 Secondary NOT GIVENUNK [place] Insurance:SELF PAY [facility] Number: Effective Repository Date:2018-04-16 04/01/2018 RICK Primary RICK Fuentes [id number] SR Insurance:CARESOURCEP PORTERDOB: [address] Number: [id number] Hospital 10033Fee: [id number] Repository [phone] Date:2018-04-01P O -2 (HP) [address]ATTN: [place] [address]ER: 04/01/2018 Secondary NOT GIVENUNK [place] Insurance:SELF PAY [facility] Number: Effective Repository Date:2018-04-01 04/01/2018 RICK Primary RICK Fuentes [id number] SR Insurance:CARESOURCEP PORTERDOB: [facility] [place] Number: [id number] Hospital 56273Rfb: [id number] Repository [phone] Date:2018-04-01P O -2 (HP) [address]ATTN: [place] [address]SJ: 04/01/2018 Secondary NOT GIVENUNK [place] Insurance:SELF PAY [facility] Number: Effective Repository Date:2018-04-01 04/01/2018 RICK Primary RICK Fuentes [id number] SR Insurance:CARESOURCEP PORTERDOB: [address] Number: [id number] Hospital 28809Dcx: [id number] Repository [phone] Date:2018-04-01P O -2 (HP) [address]ATTN: [place] [address]QS: 04/01/2018 Secondary NOT GIVENUNK [place] Insurance:SELF PAY [facility] Number: Effective Repository Date:2018-04-01 04/01/2018 RICK Primary RICK Fuentes [id number] SR Insurance:CARESOURCEP PORTERDOB: [address] Number: [id number] Hospital 550[address]Mjc: [id number] Repository [phone] Date:2018-04-01 O -2 () [address]ATTN: [place] [address]CZ: 04/01/2018 Secondary NOT GIVENUNK [place] Insurance:SELF PAY [facility] Number: Effective Repository Date:2018-04-01 04/01/2018 RICK Primary RICK Fuentes [id number] SR Insurance:CARESOURCEP PORTERDOB: [address] Number: [id number] Hospital [address]Gue: [id number] Repository [phone] Date:2018-04-01P O -2 () [address]ATTN: [place] [address]LC: 04/01/2018 Secondary NOT GIVENUNK [place] Insurance:SELF PAY [facility] Number: Effective Repository Date:2018-04-01 04/01/2018 RICK Primary RICK Fuentes [id number] SR Insurance:CARESOURCEP PORTERDOB: [address] Number: [id number] Hospital 987[address]Pgx: [id number] Repository [phone] Date:2018-04-01P O -2 () [address]ATTN: [place] [address]VC: 04/01/2018 Secondary NOT GIVENUNK [place] Insurance:SELF PAY [facility] Number: Effective Repository Date:2018-04-01 04/01/2018 RICK Primary RICK Fuentes [id number] SR Insurance:CARESOURCEP PORTERDOB: [address] Number: [id number] [facility] [address]366Yma: [id number] Repository [phone] Date:2018-04-01P O -2 () [address]ATTN: [place] [address]QF: 04/01/2018 Secondary NOT GIVENUNK [place] Insurance:SELF PAY [facility] Number: Effective Repository Date:2018-04-01 04/01/2018 RICK Primary RICK Fuentes [id number] SR Insurance:CARESOURCEP PORTERDOB: [address] Number: [id number] Hospital 04657Rpr: 330 [id number] Repository [phone] (HP) Date:2018-04-01 [address]ATTN: [place] [address]SO: 04/01/2018 Secondary NOT GIVENUNK [place] Insurance:SELF PAY [facility] Number: Effective Repository Date:2018-04-01 03/30/2018 RICK Primary RICK Fuentes [id number] SR Insurance:CARESOURCEP PORTERDOB: [address] Number: [id number] Hospital [address]Gjb: 330 [id number] Repository [phone] (HP) Date:2017-12-28[address]ATTN: [place] [address]FN: 03/30/2018 Secondary NOT GIVENUNK [place] Insurance:SELF PAY [facility] Number: Effective Repository Date:2018-03-17 03/30/2018 RICK Primary RICK Fuentes [id number] SR Insurance:CARESOURCEP PORTERDOB: [address] Number: [id number] Hospital 27876Rnr: (330 [id number] Repository [phone] () Date:2017-12-28 [address]ATTN: [place] [address]BR: 03/30/2018 Secondary NOT GIVENUNK [place] Insurance:SELF PAY [facility] Number: Effective Repository Date:2018-03-30 03/16/2018 RICK Primary RICK Fuentes [id number] SR Insurance:CARESOURCEP PORTERDOB: [address] Number: [id number] Hospital 15521Cyn: [id number] Repository [phone] Date:2017-12-28 O -2 () [address]ATTN: [place] [address]FG: 03/16/2018 Secondary NOT GIVENUNK [place] Insurance:SELF PAY [facility] Number: Effective Repository Date:2018-02-14 03/16/2018 RICK Primary RICK Fuentes [id number] SR Insurance:CARESOURCEP PORTERDOB: [address] Number: [id number] Hospital [address]Uuj: (330 [id number] Repository [phone] (HP) Date:2017-12-28 [address]ATTN: [place] [address]RM: 03/16/2018 Secondary NOT GIVENUNK [place] Insurance:SELF PAY [facility] Number: Effective Repository Date:2018-03-16 03/09/2018 RICK Primary RICK Fuentes [id number] SR Insurance:CARESOURCEP PORTERDOB: [address] Number: [id number] Hospital [address]Gin: 330 [id number] Repository [phone] () Date:2017-12-28 [address]ATTN: [place] [address]RX: 03/09/2018 Secondary NOT GIVENUNK [place] Insurance:SELF PAY [facility] Number: Effective Repository Date:2018-03-09 03/02/2018 RICK Valeria Fuentes [id number] SR Insurance:CARESOURCEP PORTERDOB: [address] Number: [id number] Hospital 118[address]Sie: [id number] Repository [phone] Date:2017-12-28P O -2 () [address]ATTN: [place] [address]XJ: 03/02/2018 Secondary NOT GIVENUNK [place] Insurance:SELF PAY [facility] Number: Effective Repository Date:2018-03-02 02/23/2018 RICK Valeria Fuentes [id number] SR Insurance:CARESOURCEP PORTERDOB: [address] Number: [id number] [facility] [address]Nnk: [id number] Repository [phone] Date:2017-12-28P O -2 () [address]N: [place] [address]WL: 02/23/2018 Secondary NOT GIVENUNK [place] Insurance:SELF PAY [facility] Number: Effective Repository Date:2018-02-23 02/16/2018 RICK Fuentes [id number] SR Insurance:CARESOURCEP PORTERDOB: [address] Number: [id number] [facility] 615[address]Toz: [id number] Repository [phone] Date:2017-12-28P O -2 (HP) [address]ATTN: [place] [address]HR: 02/16/2018 Secondary NOT GIVENUNK [place] Insurance:SELF PAY [facility] Number: Effective Repository Date:2018-02-16 02/09/2018 RICK Primary RICK Fuentes [id number] SR Insurance:CARESOURCEP PORTERDOB: Community [address] [place] [address] Number: [id number] Hospital 507[address]Tff: [id number] Repository [phone] Date:2017-12-28P O -2 (HP) [address]ATTN: [place] [address]JD: 02/09/2018 Secondary NOT GIVENUNK [place] Insurance:SELF PAY [facility] Number: Effective Repository Date:2018-01-15 02/09/2018 RICK Primary RICK Fuentes [id number] SR Insurance:CARESOURCEP PORTERDOB: [address] Number: [id number] Hospital [address]1943Yrt: [id number] Repository [phone] Date:2017-12-28P O -2 (HP) [address]ATTN: [place] [address]GL: 02/09/2018 Secondary NOT GIVENUNK [place] Insurance:SELF PAY [facility] Number: Effective Repository Date:2018-02-09 01/18/2018 RICK Primary RICK Fuentes [id number] SR Insurance:CARESOURCEP PORTERDOB: [address] Number: [id number] Hospital [address]25[address]Vzp: [id number] Repository [phone] Date:2017-12-28P O -2 (HP) [address]ATTN: [place] [address]DO: 01/18/2018 Secondary NOT GIVENUNK [place] Insurance:SELF PAY [facility] Number: Effective Repository Date:2018-01-18 01/11/2018 RICK Primary RICK Fuentes [id number] SR Insurance:CARESOURCEP PORTERDOB: [address] Number: [id number] [address]Wrq: [id number] Repository [phone] Date:2017-12-28P O -2 () [address]ATTN: [place] [address]WG: 01/11/2018 Secondary NOT GIVENUNK [place] Insurance:SELF PAY [facility] Number: Effective Repository Date:2017-12-28 01/11/2018 RICK Primary RICK Fuentes [id number] SR Insurance:CARESOURCEP PORTERDOB: [address] Number: [id number] [address]Teb: [id number] Repository [phone] Date:2017-12-28P O -2 () [address]ATTN: [place] [id number]: 01/11/2018 Secondary NOT GIVENUNK [place] Insurance:SELF PAY [facility] Number: Effective Repository Date:2018-01-11 01/04/2018 RICK Primary RICK Fuentes [id number] SR Insurance:CARESOURCEP PORTERDOB: [address] Number: [id number] [address]Ojy: [id number] Repository [phone] Date:2017-12-28P O -2 () [address]ATTN: [place] [id number]: 01/04/2018 Secondary NOT GIVENUNK [place] Insurance:SELF PAY [facility] Number: Effective Repository Date:2018-01-04 12/14/2017 RICK Primary RICK Fuentes [id number] SR Insurance:CARESOURCEP PORTERDOB: [address] Number: [id number] [address]Hky: [id number] Repository [phone] Date:2016-02-15P O -2 () [address]ATTN: [place] [id number]: 12/14/2017 Secondary NOT GIVENUNK [place] Insurance:SELF PAY [facility] Number: Effective Repository Date:2017-10-04 11/10/2017 RICK Primary NOT GIVENUNK [place] [id number] SR Insurance:SELF PAY [address] [address]Drj: Number: Effective Repository [phone] Date:2017-11-01 () 11/07/2017 RICK Primary NOT GIVENUNK [place] [id number] SR Insurance:SELF PAY [address] [address]Ggp: Number: Effective Repository [phone] Date:2017-11-01 () 11/03/2017 RICK Primary NOT GIVENUNK [place] [id number] SR Insurance:SELF PAY [address] [address]Mux: Number: Effective Repository [phone] Date:2017-11-01 () 11/01/2017 RICK Primary RICK [place] [id number] SR Insurance:CAR[employer]OURCEP PORTERDOB: [address] Number: [id number] [address]Ipb: [id number] Repository [phone] Date:2017-10-31 O -2 () [address]ATTN: [place] [id number]: 11/01/2017 Secondary NOT GIVENUNK [place] Insurance:SELF PAY [facility] Number: Effective Repository Date:2017-11-01 10/24/2017 RICK Primary RICK [place] [id number] SR Insurance:[employer]OURCEP PORTERDOB: [address] Number: [id number] [address]Qqn: [id number] Repository [phone] Date:2017-09-22P O -2 () [address]ATTN: [place] [id number]: 10/24/2017 Secondary NOT GIVENUNK [place] Insurance:SELF PAY [facility] Number: Effective Repository Date:2017-09-22 10/20/2017 RICK Primary RICK [place] [id number] SR [facility]: [address] Number: [id number] [address]Udf: [phone]) [id number] Repository [phone] Date:2017-10-18[address]ATTN: [place] [id number]: 10/20/2017 Secondary NOT GIVENUNK [place] Insurance:SELF PAY [facility] Number: Effective Repository Date:2017-10-20
== END ==
PROVIDERS: Family Provider Student in an Organized Health Care Education/Training Program; PCP Student in an Organized Health Care Education/Training Program; Referring Provider Physician Assistant Medical; Visit Provider Physician Assistant Medical
DX: I10 Essential (primary) hypertension (principal); R06.09 Other forms of dyspnea
CPT/HCPCS: 36415; 80048; 85025

== ENCOUNTER → 2018-09-29 13:12 | Outpatient (CLI) | payer MEDICAID, SELFPAY ==
[2018-09-29 09:15] VITALS: BMI 30.2
[2018-09-29 14:17] LABS: BUN 16 mg/dL (7-18); Creatinine, Serum 1.04 mg/dL (0.70-1.30); Glucose 148 mg/dL (74-106)
[2018-09-29 14:18] LABS: Anion Gap 5 (5-15); BUN/Creat Ratio 15.4 RATIO (10-20); Calcium,Total 8.7 mg/dL (8.5-10.1); Chloride 101 mmol/L (98-107); EST Glomerular Filtration Rate 78 mL/min (>60); Est Glom Filt Rate - Afr Amer 95 mL/min (>60); Potassium 4.2 mmol/L (3.5-5.1); Sodium Level 135 mmol/L (136-145)
[2018-09-29 14:30] LABS: BNP,B-Type NATRIURETIC PEPTIDE 71.2 pg/mL (0-100)
--- OUTSIDE RECORDS SUMMARY | 2018-11-15 08:35 | XMS RPT_ITS ---
:1960 Author Organization OHIP Support Name Relationship Address Phone RADHA GEORGE Unavailable [id number] + [place] [address] SELF Unavailable Unavailable Unavailable GEORGE, RADHA Unavailable [address] + [place] [address] SELF Unavailable Unavailable Unavailable GEORGE, RADHA Unavailable [address] + [place] [address] SELF Unavailable Unavailable Unavailable GEORGE, RADHA Unavailable [address] + [place] [address] SELF Unavailable Unavailable Unavailable GEORGE, RADHA Unavailable [address] + [place] [address] SELF Unavailable Unavailable Unavailable GEORGE, RADHA Unavailable [address] + [place] [address] SELF Unavailable Unavailable Unavailable GEORGE, RADHA Unavailable [address] + [place] [address] SELF Unavailable Unavailable Unavailable GEORGE, RADHA Unavailable [address] + [place] [address] SELF Unavailable Unavailable Unavailable GEORGE, RADHA Unavailable [address] + [place] [address] SELF Unavailable Unavailable Unavailable GEORGE, RADHA Unavailable [address] + [place] [address] SELF Unavailable Unavailable Unavailable GEORGE, RADHA Unavailable [address] + [place] [address] SELF Unavailable Unavailable Unavailable GEORGE, RADHA Unavailable [address] + [place] [address] SELF Unavailable Unavailable Unavailable GEORGE, RADHA Unavailable [address] + [place] [address] SELF Unavailable Unavailable Unavailable GEORGE, RADHA Unavailable [address] + [place] [address] SELF Unavailable Unavailable Unavailable GEORGE, RADHA Unavailable [address] + [place] [address] SELF Unavailable Unavailable Unavailable DORIS RADHA Unavailable [address] + [place] [address] SELF Unavailable Unavailable Unavailable DORIS RADHA Unavailable [address] + [place] [address] SELF Unavailable Unavailable Unavailable SELF Unavailable Unavailable Unavailable EMERY RADHA Unavailable [address] + [place] [address] SELF Unavailable Unavailable Unavailable EMERY, RADHA Unavailable [address] + [place] [address] SELF Unavailable Unavailable Unavailable EMERY, RADHA Unavailable [address] + [place] [address] SELF Unavailable Unavailable Unavailable EMERY, RADHA Unavailable [address] + [place] [address] SELF Unavailable Unavailable Unavailable EMERY, RADHA Unavailable [address] + [place] [address] SELF Unavailable Unavailable Unavailable EMERY RADHA Unavailable [address] + [place] [address] SELF Unavailable Unavailable Unavailable EMERY, RADHA Unavailable [address] + [place] [address] SELF Unavailable Unavailable Unavailable EMERY, RADHA Unavailable [address] + [place] [address] SELF Unavailable Unavailable Unavailable EMERY, RADHA Unavailable [address] + [place] [address] SELF Unavailable Unavailable Unavailable EMERY, RADHA Unavailable [address] + [place] [address] SELF Unavailable Unavailable Unavailable EMERY, RADHA Unavailable [address] + [place] [address] SELF Unavailable Unavailable Unavailable EMERY, RADHA Unavailable [address] + [place] [address] SELF Unavailable Unavailable Unavailable EMERY, RADHA Unavailable [address] + [place] [address] SELF Unavailable Unavailable Unavailable EMERY, RADHA Unavailable [address] + [place] [address] SELF Unavailable Unavailable Unavailable EMERY, RADHA Unavailable [address] + [place] [address] SELF Unavailable Unavailable Unavailable EMERY RADHA Unavailable [address] + [place] [address] SELF Unavailable Unavailable Unavailable EMERY, RADHA Unavailable [address] + [place] [address] SELF Unavailable Unavailable Unavailable EMERY, RADHA Unavailable [address] + [place] [address] SELF Unavailable Unavailable Unavailable EMERY RADHA Unavailable [address] + [place] [address] SELF Unavailable Unavailable Unavailable EMERY, RADHA Unavailable [address] + [place] [address] SELF Unavailable Unavailable Unavailable EMERY, RADHA Unavailable [address] + [place] [address] SELF Unavailable Unavailable Unavailable EMERY, RADHA Unavailable [address] + [place] [address] SELF Unavailable Unavailable Unavailable EMERY RADHA Unavailable [address] + [place] [address] SELF Unavailable Unavailable Unavailable EMERY, RADHA Unavailable [address] + [place] [address] SELF Unavailable Unavailable Unavailable EMERY RADHA Unavailable [address] + [place] [address] SELF Unavailable Unavailable Unavailable EMERY RADHA Unavailable [address] + [place] [address] SELF Unavailable Unavailable Unavailable EMERY RADHA Unavailable [address] + [place] [address] SELF Unavailable Unavailable Unavailable EMERY RADHA Unavailable [address] + [place] [address] SELF Unavailable Unavailable Unavailable EMERY RADHA Unavailable [address] + [place] [address] SELF Unavailable Unavailable Unavailable EMERY RADHA Unavailable [address] + [place] [address] SELF Unavailable Unavailable Unavailable EMERY, RADHA Unavailable [address] + [place] [address] SELF Unavailable Unavailable Unavailable EMERY RADHA Unavailable [address] + [place] [address] SELF Unavailable Unavailable Unavailable RADHA LAND Unavailable [address] + [place] [address] Care Team Providers Name Role Phone Ted, Tommie Red Attending Unavailable Ted, Tommie Teofilo Attending Unavailable Ted, Tommie Red Referring Unavailable Escalante, Avery Primary Care Unavailable Surjit Edmonds Attending Unavailable Surjit Edmonds Referring Unavailable Escalante, Avery Primary Care Unavailable Surjit Edmonds Attending Unavailable Surjit Edmonds Referring Unavailable Escalante, Avery Primary Care Unavailable Yamilka Davis Attending Unavailable Escalante, Avery Referring Unavailable Surjit Edmonds Attending Unavailable Escalante, Avery Primary Care Unavailable Surjit Edmonds Referring Unavailable Elizabeth Simmons D.C. Attending Unavailable Escalante, Avery Referring Unavailable Tungone, Abigail Attending Unavailable Escalante, Avery Primary Care Unavailable Oleghe, Efewongbe Attending Unavailable Fascione Abigail Referring Unavailable Fascione, Abigail Attending Unavailable [...] Care Unavailable Escalante, Avery Primary Care Unavailable Agustín Emanuel Referring Unavailable [place], Center Admitting Unavailable Mood[place], Mat Consulting Unavailable Shania Hernandez Attending Unavailable [place], Center Admitting Unavailable [place], Center Attending Unavailable Escalante, Avery Primary Care Unavailable [place], Mat Consulting Unavailable [place], Center Consulting Unavailable [place], Center Admitting Unavailable [place], Mat Attending Unavailable Escalante, Avery Primary Care Unavailable [place], Mat Consulting Unavailable [place], Center Consulting Unavailable [place], Center Admitting Unavailable [place], Mat Attending Unavailable Escalante, Avery Primary Care Unavailable [place], Mat Consulting Unavailable [place], Center Consulting Unavailable [place], Center Admitting Unavailable [place], Center Attending Unavailable Escalante, Avery Primary Care Unavailable [place], Mat Consulting Unavailable [place], Center Consulting Unavailable [place], Center Admitting Unavailable [place], Mat Attending Unavailable Escalante, Avery Primary Care Unavailable [place], Mat Consulting Unavailable White, Shania Consulting Unavailable [place], Center Admitting Unavailable White, Shania Attending Unavailable Escalante, Avery Primary Care Unavailable [place], Mat Consulting Unavailable White, Shania Consulting Unavailable Oleghe, Efewongbe Attending Unavailable Escalante, Avery Primary Care Unavailable Oleghe, Efewongbe Attending Unavailable Oleghe, Efewongbe Referring Unavailable Oleghe, Efewongbe Attending Unavailable Oleghe, Efewongbe Referring Unavailable Oleghe, Efewongbe Attending Unavailable Oleghe, Efewongbe Referring Unavailable [facility] Mat Attending Unavailable Oleghe, Efewongbe Attending Un[facility]available Oleghe, Efewongbe Attending Unavailable Oleghe, Efewongbe Attending Unavailable Oleghe, Efewongbe Attending Unavailable [facility] Unavailable Oleghe, Efewongbe Attending Unavailable Oleghe, Efewongbe Attending Unavailable Oleghe, Efewongbe Attending Unavailable Oleghe, Efewongbe Attending Unavailable Escalante, Avery Primary Care Unavailable STEFANIE HERRERA Attending Unavailable STEFANIE HERRERA Referring Unavailable Mat Ring Attending Unavailable STEFANIE HERRERA Referring Unavailable Escalante, Avery Primary Care Unavailable DOCTOR, OUT OF TOWN Consulting Unavailable Oleghe, Efewongbe Attending Unavailable Escalante, Avery Primary Care Unavailable Mat Ring Attending Unavailable STEFANIE HERRERA Referring Unavailable Escalante, Avery Primary Care Unavailable DOCTOR, OUT OF TOWN Consulting Unavailable Tommie Jean H Attending Unavailable Escalante, Avery Attending Unavailable Escalante, Avery Referring Unavailable Escalante, Avery Primary Care Unavailable Mooddarwin Mat Attending Unavailable STEFANIE HERRERA Referring Unavailable Escalante, Avery Primary Care Unavailable DOCTOR, OUT OF TOWN Consulting Unavailable Escalante, Avery Attending Unavailable Escalante, Avery Referring Unavailable Escalante, Avery Primary Care Unavailable Mooddarwin, Mat Attending Unavailable STEFANIE HERRERA Referring Unavailable Escalante, Avery Primary Care Unavailable DOCTOR, OUT OF TOWN Consulting Unavailable Escalante, Avery Attending Unavailable Escalante, Avery Referring Unavailable Escalante, Avery Primary Care Unavailable José Miguel Singleton Attending Unavailable José Miguel Singleton Referring Unavailable Escalante, Avery Primary Care Unavailable Yamilka Davis Attending Unavailable Yamilka Davis Referring Unavailable Escalante, Avery Primary Care Unavailable CORNIELLO, ZOË L (BILINGUAL KINDERGARTEN TEACHER) Referring Unavailable ESCALANTE, AVERY L Referring Unavailable ESCALANTE, AVERY L Referring Unavailable ESCALANTE, AVERY L Referring Unavailable CORNIELLO, ZOË L (BILINGUAL KINDERGARTEN TEACHER) Referring Unavailable ESCALANTE, AVERY L Attending Unavailable ESCALANTE, AVERY L Referring Unavailable CORNIELLO, ZOË L (BILINGUAL KINDERGARTEN TEACHER) Referring Unavailable ESCALANTE, AVERY L Referring Unavailable ESCALANTE, AVERY L Referring Unavailable JABER, WAEL A Admitting Unavailable UNAI, SHINYA Attending Unavailable MONTALVO, MERCEDES (ENTERPRISE INTEGRATION DEVELOPER) Referring Unavailable AHMED, HAITHAM Referring Unavailable AHMED, HAITHAM Referring Unavailable AHMED, HAITHAM Referring Unavailable MONTALVOMERCEDES (ENTERPRISE INTEGRATION DEVELOPER) Referring Unavailable CORNIELLO, ZOË L ([facility]) Attending Unavailable UNAI, SHINYA Referring Unavailable UNAI, SHINYA Referring Unavailable UNAI, SHINYA Referring Unavailable ALLYSON WHEELER ([facility]) Attending Unavailable UNAI, SHINYA Referring Unavailable CORNIELLO, ZOË L ([facility]) Attending Unavailable CORNIELLO, ZOË L (BILINGUAL KINDERGARTEN TEACHER) Referring Unavailable REAGANLISA CASTILLO D Attending Unavailable ESCALANTE, AVERY L Referring Unavailable ESCALANTE, AVERY L Attending Unavailable ESCALANTE, AVERY L Referring Unavailable CORNIELLO, ZOË L (BILINGUAL KINDERGARTEN TEACHER) Referring Unavailable ESCALANTE, AVERY L Referring Unavailable CORNIELLO, ZOË L (BILINGUAL KINDERGARTEN TEACHER) Attending Unavailable ARMANDO, RHONDA Referring Unavailable ARMANDO, RHONDA Referring Unavailable ESCALANTE, AVERY L Referring Unavailable JOSÉ MIGUEL SINGLETON Referring Unavailable ESCALANTE, AVERY L Attending Unavailable ESCALANTE, AVERY L Referring Unavailable ESCALANTE, AVERY L Referring Unavailable ESCALANTE, AVERY L Referring Unavailable ESCALANTE, AVERY L Referring Unavailable REAGAN, LISA D Referring Unavailable ESCALANTE, AVERY L Referring Unavailable ESCALANTE, AVERY L Attending Unavailable ESCALANTE, AVERY L Referring Unavailable ARMANDO, RHONDA Attending Unavailable ARMANDO, M.D. RHONDA Attending Unavailable [facility] Referring Unavailable AVERY ESCALANTE Primary Care Unavailable PROBLEMS PROBLEMS DATE TYPE CONDITION / CODE ATTENDING STATUS SOURCE 11/08/2018 Unknown R53.1 - Weakness / José Miguel Singleton Active [employer] R53.1(ICD-10) [facility] Hospital Repository 11/08/2018 Unknown R26.81 - José Miguel Singleton Active [facility] Unsteadiness on feet Community / R26.81(ICD-10) Hospital Repository 10/31/2018 Unknown E11.8 - Type 2 Boris Active [employer] diabetes mellitus [facility] with unspecified Hospital complications / Repository E11.8(ICD-10) 10/30/2018 Active Hyperlipidemia, NA Active [facility] unspecified / Clinic Main E78.5(ICD-10) [place] Repository 10/30/2018 Active Type 2 diabetes NA Active [facility] mellitus with Clinic Main unspecified [place] complications / Repository E11.8(ICD-10) 04/14/2018 Active Peripheral vascular NA Active [facility] disease, unspecified Clinic Main / I73.9(ICD-10) [place] Repository 10/18/2018 Unknown M22.42 - KendalSurjit Active [facility] 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, left knee Hospital / M22.42(ICD-10) Repository 10/18/2018 Unknown M17.12 - Unilateral Surjit Edmonds Active [employer] primary Community osteoarthritis, left Hospital knee / Repository M17.12(ICD-10) 10/04/2018 Unknown I25.10 - [place], Active [employer] Atherosclerotic [facility] heart disease of Hospital [place] coronary Repository artery without angina pectoris / I25.10(ICD-10) 09/29/2018 Unknown R06.09 - Other forms Tommie Jean Active [facility] of dyspnea / Community R06.09(ICD-10) Hospital Repository 09/29/2018 Unknown Z95.1 - Presence of Tommie Jean Active [facility] aortocoronary bypass Community graft / Hospital Z95.1(ICD-10) Repository 09/29/2018 Unknown I10 - Essential Tommie Jean Active [employer] (primary) Community hypertension / Hospital I10(ICD-10) Repository 04/19/2018 Active Type 2 diabetes NA Active [facility] mellitus with other Clinic Main diabetic [place] neurological Repository complication / E11.49(ICD-10) 07/21/2018 Active Unknown / NA Active [facility] UNK(Unknown) Clinic Main [place] Repository 07/17/2018 Unknown I21.4 - Non-ST [place], Active [facility] elevation (NSTEMI) [facility] myocardial Hospital infarction / Repository I21.4(ICD-10) 07/17/2018 Unknown E78.5 - [place], Active [employer] Hyperlipidemia, [facility] unspecified / Hospital E78.5(ICD-10) Repository 05/12/2018 Active Presence of NA Active [facility] aortocoronary bypass [facility] Main graft / [place] Z95.1(ICD-10) Repository 05/25/2018 Active Atherosclerotic NA Active [facility] heart disease of [facility] [place] coronary [place] artery without Repository angina pectoris / I25.10(ICD-10) 06/07/2018 Active Anemia, unspecified NA Active [facility] / D64.9(ICD-10) Clinic Main [place] Repository 06/05/2018 Unknown L97.512 - Oleghe, Active [facility] Non-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[facility] ulcer of other [facility] Hospital of right foot with Repository fat layer exposed / L97.512(ICD-10) 06/05/2018 Unknown T14.8XXA - Other Oleghe, Active [employer] injury of [facility] unspecified body Hospital region, initial Repository encounter / T14.8XXA(ICD-10) 04/15/2018 Active Mixed hyperlipidemia RHONDA [facility] / E78.2(ICD-10) Clinic Other [place] Repository 05/15/2014 Active Unspecified disorder ARMANDO, RHONDA Active [facility] circulatory [facility] Other system / [place] I99.9(ICD-10) Repository 05/25/2018 Admitting Unknown / Sharon ESCAMILLA Active [facility] diagnosis UNK(Unknown) [facility] Repository 04/15/2018 Active Non-ST elevation NA Active [facility] (NSTEMI) myocardial Clinic Main infarction / [place] I21.4(ICD-10) Repository 04/28/2018 Active Encounter for NA Active [facility] follow-up Clinic Main examination after [place] completed treatment Repository for conditions other than malignant neoplasm / Z09(ICD-10) 04/19/2018 Active Atherosclerotic UNAI, SHINYA Active [facility] heart disease of [facility] [place] coronary [place] artery with unstable Repository angina pectoris / I25.110(ICD-10) 04/15/2018 Active Other acute UNAI, SHINYA Active [facility] postprocedural pain Clinic Main / G89.18(ICD-10) [place] Repository 08/25/2015 Active Deficiency of other UNAI, SHINYA Active [facility] specified B group Clinic Main vitamins / [place] E53.8(ICD-10) Repository 04/16/2018 Unknown E11.621 - Type 2 Oleghe, Active [employer] diabetes mellitus [facility] with foot ulcer / Hospital E11.621(ICD-10) Repository 04/25/2018 Unknown L98.492 - Oleghe, Active [facility] Non-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[facility] ulcer of skin of Hospital other sites with fat Repository layer exposed / L98.492(ICD-10) 04/25/2018 Unknown E11.42 - Type 2 Oleghe, Active [employer] diabetes mellitus [facility] with diabetic Hospital polyneuropathy / Repository E11.42(ICD-10) 01/25/2018 Active Diabetes mellitus NA [facility] due to underlying Clinic Main condition with [place] diabetic neuropathy, Repository unspecified / E08.40(ICD-10) 01/25/2018 Active [facility] (current) NA [facility] use of insulin / Clinic Main Z79.4(ICD-10) [place] Repository 02/03/2018 Unknown S72.435D - Surjit Edmonds Active [employer] Nondisplaced Community fracture of medial Hospital condyle of left Repository femur, subsequent encounter for closed fracture with routine healing / S72.435D(ICD-10) 11/14/2017 Active Hyperkalemia / NA Active [facility] E87.5(ICD-10) Clinic Main [place] Repository 11/14/2017 Active Hypomagnesemia / NA Active [facility] E83.42(ICD-10) [facility] [place] Repository PROCEDURES PROCEDURES No Procedure Records FoundRESULTS RESULTS PROGRESS Observed: 11/07/2018 Status: COMPLETED Source: [facility] 9:42 AM CLINIC MAIN [facility] REPOSITORY HNO ID: [id number] Author: Avery Escalante Service: (none) Author Type: Physician Type: Progress Notes Filed: 11/07/2018 12:10 PM Note Text: Patient presents with: Follow Up: 3 months HPI: Cesar George is a 58 year old male who presents to the office today for review of health conditions. Concerns today: Seen in office 05/10, at that time- About 4 weeks out from multivessel CABG surgery after presenting to [facility] for fatigue and left rib pain after baling hay, was found to have critical stenosis of LAD and several other arteries, was transported up to main [facility] and had bypass surgery performed. ?He is overall doing well after surgery. ?Diagnosed with C difficile colitis and is starting on Flagyl, had been treated with oral vancomycin the 1st time but was 3-4 tablets short of full course of treatment due to insurance coverage issues. ??Has been avoiding driving for the most part but was driving in a tractor, he is admitting today. ??Has had some poor healing of inferior sternal incision and chest tube area on left. ? ? He had follow up with cardiothoracic surgery on 05/25, was healing well. He is getting back to activities, has been mostly limiting his lifting but does admit to lifting 50 lb feed bags x 30-40 bags this last week, No chest pain with this. Now he is back to doing [place] activities [place] on [place] and in [place]. No recent falls Continues to notice his neuropathy and muscle wasting, trying to eat enough protein Blood glucose fasting in the 100-200 range, mostly well controlled. Some low blood glucose readings but mostly when doesn't eat breakfast. Mr. George has past history of diabetes. Since our last visit he denies excessive thirst or increased frequency of urination, chest pain or dyspnea and low sugar/hypoglycemic reactions. Follows a diabetic diet some of the time. He is compliant with medication(s) and is tolerating med(s) without any side effects. He reports checking his glucose on a three times a day schedule. Patient's last HgA1C was Hemoglobin A1C (%) Date Value 10/30/2018 6.2 07/26/2018 6.2 ) Last Ophthalmology exam was within the past 12 months Mr. George reports history of hyperlipidemia. Current therapy includes no current treatment. Denies side effects of muscle weakness or achiness. His most recent lipid panels are reviewed. Cholesterol, Total (mg/dL) Date Value 10/30/2018 182 HDL Cholesterol (mg/dL) Date Value 10/30/2018 51 LDL Cholesterol (mg/dL) Date Value 10/30/2018 110 Triglyceride (mg/dL) Date Value 10/30/2018 106 Mr. George indicates a history of hypertension and states that he is feeling well and denies any symptoms referable to elevated blood pressure. Specifically denies headache, chest pain, palpitations, dyspnea and peripheral edema. Patient denies any side effects of his medication(s) and is compliant with their regimen. Last 3 Encounter BP Readings: Date: BP: 11/07/2018 126/70 08/11/2018 116/60 06/15/2018 110/64 He watches his diet for sodium, low fat and low cholesterol some of the time. He does not check BP's generally. Cesar works out regularly 7 times per week with walking. PAST MEDICAL HISTORY Diagnosis Date - Cataract b/l, eye exam 05/29/13 - CTS (carpal tunnel syndrome) 10/2013 b/l, chronic, Dr. 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 Mazin Hinojosa Neuro, likely from DM and Vitamin B12 defic - Stroke ([facility]) 10/01/13 - Ulnar neuropathy 10/2013 b/l, chronic, [...] CK level - Metformin Diarrhea Current Meds: diflorasone 0.05 % cream APPLY CREAM TO AFFECTED AREA TWICE DAILY NEEDED FOR RASH ketoconazole (NIZORAL) 2 % cream APPLY TO AFFECTED AREA ON FACE ONCE DAILY celecoxib (CELEBREX) 200 mg capsule Take 1 capsule by mouth once daily. biotin 1 mg cap TAKE ONE TABLET BY MOUTH ONCE DAILY Cholecalciferol, Vitamin D3, 5,000 unit cap TAKE 1 CAPSULE BY MOUTH ONCE DAILY BASAGLAR KWIKPEN U-100 INSULIN 100 unit/mL (3 mL) inpn INJECT 20 UNITS SUBCUTANEOUSLY AT BEDTIME aspirin 81 mg chewable tablet 2 tablets by ORAL/FEEDING TUBE route once daily. gabapentin (NEURONTIN) 300 mg capsule Take 3 capsules by mouth every 8 hours for 30 days. rosuvastatin (CRESTOR) 10 mg tablet Take 1 tablet by mouth every 48 hours. aspirin 81 mg chewable tablet TAKE 2 TABLETS BY MOUTH OR FEEDING TUBE ONCE DAILY metoprolol tartrate, short acting, (LOPRESSOR) 25 mg tablet Take 0.5 tablets by mouth every 12 hours. Magnesium 250 mg tab Take 250 mg [...] every 6 hours as needed for Pain. lisinopril 2.5 mg tablet Take 1 tablet by mouth once daily. insulin lispro (HUMALOG KWIKPEN INSULIN) 100 unit/mL inpn INJECT 12 TO 20 UNITS SUBCUTANEOUSLY WITH MEALS DIRECTED insulin glargine (BASAGLAR KWIKPEN U-100 INSULIN) 100 unit/mL (3 mL) inpn INJECT 20 UNITS SUBCUTANEOUSLY ONCE DAILY AT BEDTIME HUMALOG KWIKPEN INSULIN 100 unit/mL inpn INJECT 12 TO 20 UNITS SUBCUTANEOUSLY WITH MEALS DIRECTED COMPOUNDED PRESCRIPTION Referral: wound clinic, [facility] silver sulfADIAZINE (SSD) 1 % cream Apply 1 application to affected area once daily. nortriptyline (PAMELOR) 50 mg capsule TAKE ONE CAPSULE BY MOUTH ONCE DAILY AT BEDTIME cetirizine (ZYRTEC) 10 mg tablet TAKE ONE TABLET BY MOUTH ONCE DAILY Tadalafil (CIALIS) 20 mg tab(s) Take 1 tablet by mouth once daily. blood sugar diagnostic (FREESTYLE LITE STRIPS) test strip Check blood glucose three times daily. Dx: E11.42, Insulin dependent Blood-Glucose Meter (FREESTYLE LITE METER) monitoring kit Freestyle LITE Meter Kit - Dx: Type 2 DM - Controlled E11.9 SANTYL ointment Apply once daily insulin needles, DISPOSABLE, (BD INSULIN PEN NEEDLE UF) 31 gauge x 5/16 ndle USE TO GIVE INSULIN INJECTIONS 4 TIMES DAILY FREESTYLE LANCETS 28 gauge misc USE DIRECTED 3 TO 4 TIMES DAILY TO TEST BLOOD GLUCOSE Review of Systems: The remainder of the review of systems is negative. PE: 11/07/18 0924 BP: 126/70 Pulse: 80 Resp: 20 Temp: 36.3 ?C (97.3 ?F) TempSrc: Left Tympanic Weight: 99.3 kg (219 lb) Gen: AANDO, NAD, non-toxic appearing, Pleasant, cooperative HEENT: NT/AC, PERRLA, EOMs intact b/l, nares clear and patent b/l, pharynx without erythema, exudate or lesions. Uvula midline. MMM Neck: supple, No cervical LAD, no thyromegaly, no carotid bruits CV: RRR, normal S1 and S2, 2/6 HSM RUSB?murmurs, no gallops, no rubs, Pulses 2+ and symmetric in UE and LE b/l Lungs: normal respiratory effort, bibasilar crackles. Healed sternal incision Abd: soft, NT, ND, +BS, no hepatosplenomegaly MS: peripheral atrophy hands and less active ROM and use of hands and arms Legs also with atrophy changes Mild trace right lower leg >left lower leg edema Neuro: CN II-XII intact b/l, strength 5/5 b/l UE and LE, DTRs 2/4 UE and LE, sensation intact. Skin: warm, dry, intact, see above? ? ASSESSMENT/PLAN: 1. Type 2 diabetes mellitus with complication, without long- term current use of insulin (HCC) - ICD9: 250.90, ICD10: E11.8 (primary diagnosis) Controlled. - Continue current medications - Blood glucose monitoring on a once a day schedule 2. Weight gain - ICD9: 783.1, ICD10: R63.5 - rx as below, fluid retention - FUROSEMIDE 20 MG TABLET 3. Bibasilar crackles - ICD9: 786.7, ICD10: R09.89 - CHF related likely, CXR if symptoms don't improve in 2-3 days - FUROSEMIDE 20 MG TABLET - XR CHEST 2V FRONTAL/LAT 4. ED (erectile dysfunction) of organic origin - ICD9: 607.84, ICD10: N52.9 - rx as below - VARDENAFIL 20 MG TABLET 5. 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 (HCC) - ICD9: 414.01, 411.1, ICD10: I25.110 - stable, has CHF, continue to monitor BLOOD PRESSURE and weights and limit salt intake 6. Vitamin B12 deficiency - ICD9: 266.2, ICD10: E53.8 - continue vitamin B12 7. Dyslipidemia - ICD9: 272.4, ICD10: E78.5 - to be determined upon return of lab results - Encouraged following a low fat, low cholesterol diet. - Discussed the benefits of regular aerobic exercise and weight loss. 8. Anemia, unspecified type - ICD9: 285.9, ICD10: D64.9 - improved Avery Escalante DO To ER if develops chest pain, shortness of breath, or severe worsening of symptoms. Discussed risks, benefits, alternatives, and potential side effects of medications. Patient expressed understanding and agreed with the plan. Avery Escalante DO [address] [place] [address] CNOV Observed: 11/07/2018 Status: COMPLETED Source: [place] 9:00 AM [facility] REPOSITORY [facility] CESAR GEORGE JR. ([id number]) 1960 M Date Time Provider Department 11/07/18 9:00 AM AVERY ESCALANTE During your visit today, we recorded the following information about you: Temperature Pulse Respiration Blood pressure 97.3 degrees 80/minute 20/minute 126/70 Weight 99.3 kg Avery Escalante DO 11/07/2018 12:10 PM Signed Patient presents with: Follow Up: 3 months HPI: Cesar George Jr. is a 58 year old male who presents to the office today for review of health conditions. Concerns today: Seen in office 05/10, at that time- About 4 weeks out from multivessel CABG surgery after presenting to [facility] for fatigue and left rib pain after baling hay, was found to have critical stenosis of LAD and several other arteries, was transported up to [facility] and had bypass surgery performed. ?He is overall doing well after surgery. ?Diagnosed with C difficile colitis and is starting on Flagyl, had been treated with oral vancomycin the 1st time but was 3-4 tablets short of full course of treatment due to insurance coverage issues. ??Has been avoiding driving for the most part but was driving in a tractor, he is admitting today. ??Has had some poor healing of inferior sternal incision and chest tube area on left. ? ? He had follow up with cardiothoracic surgery on 05/25, was healing well. He is getting back to activities, has been mostly limiting his lifting but does admit to lifting 50 lb feed bags x 30-40 bags this last week, No chest pain with this. Now he is back to doing some activities [place] on his [place] and in [place]. No recent falls Continues to notice his neuropathy and muscle wasting, trying to eat enough protein Blood glucose fasting in the 100-200 range, mostly well controlled. Some low blood glucose readings but mostly when doesn't eat breakfast. Mr. George has past history of diabetes. Since our last visit he denies excessive thirst or increased frequency of urination, chest pain or dyspnea and low sugar/hypoglycemic reactions. Follows a diabetic diet some of the time. He is compliant with medication(s) and is tolerating med(s) without any side effects. He reports checking his glucose on a three times a day schedule. Patient's last HgA1C was Hemoglobin A1C (%) Date Value 10/30/2018 6.2 07/26/2018 6.2 ) Last Ophthalmology exam was within the past 12 months Mr. George reports history of hyperlipidemia. Current therapy includes no current treatment. Denies side effects of muscle weakness or achiness. His most recent lipid panels are reviewed. Cholesterol, Total (mg/dL) Date Value 10/30/2018 182 HDL Cholesterol (mg/dL) Date Value 10/30/2018 51 LDL Cholesterol (mg/dL) Date Value 10/30/2018 110 Triglyceride (mg/dL) Date Value 10/30/2018 106 Mr. George indicates a history of hypertension and states that he is feeling well and denies any symptoms referable to elevated blood pressure. Specifically denies headache, chest pain, palpitations, dyspnea and peripheral edema. Patient denies any side effects of his medication(s) and is compliant with their regimen. Last 3 Encounter BP Readings: Date: BP: 11/07/2018 126/70 08/11/2018 116/60 06/15/2018 110/64 He watches his diet for sodium, low fat and low cholesterol some of the time. He does not check BP's generally. Cesar works out regularly 7 times per week with walking. PAST MEDICAL HISTORY Diagnosis Date - Cataract b/l, eye exam 05/29/13 - CTS (carpal tunnel syndrome) 10/2013 b/l, chronic, Dr. 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 Mazin Hinojosa Neuro, likely from DM and Vitamin B12 defic - Stroke ([facility]) 10/01/13 - Ulnar neuropathy 10/2013 b/l, chronic, [...] CK level - Metformin Diarrhea Current Meds: diflorasone 0.05 % cream APPLY CREAM TO AFFECTED AREA TWICE DAILY NEEDED FOR RASH ketoconazole (NIZORAL) 2 % cream APPLY TO AFFECTED AREA ON FACE ONCE DAILY celecoxib (CELEBREX) 200 mg capsule Take 1 capsule by mouth once daily. biotin 1 mg cap TAKE ONE TABLET BY MOUTH ONCE DAILY Cholecalciferol, Vitamin D3, 5,000 unit cap TAKE 1 CAPSULE BY MOUTH ONCE DAILY LUIS JESUS U-100 INSULIN 100 unit/mL (3 mL) inpn INJECT 20 UNITS SUBCUTANEOUSLY AT BEDTIME aspirin 81 mg chewable tablet 2 tablets by ORAL/FEEDING TUBE route once daily. gabapentin (NEURONTIN) 300 mg capsule Take 3 capsules by mouth every 8 hours for 30 days. rosuvastatin (CRESTOR) 10 mg tablet Take 1 tablet by mouth every 48 hours. aspirin 81 mg chewable tablet TAKE 2 TABLETS BY MOUTH OR FEEDING TUBE ONCE DAILY metoprolol tartrate, short acting, (LOPRESSOR) 25 mg tablet Take 0.5 tablets by mouth every 12 hours. Magnesium 250 mg tab Take 250 mg [...] every 6 hours as needed for Pain. lisinopril 2.5 mg tablet Take 1 tablet by mouth once daily. insulin lispro (HUMALOG KWIKPEN INSULIN) 100 unit/mL inpn INJECT 12 TO 20 UNITS SUBCUTANEOUSLY WITH MEALS DIRECTED insulin glargine (BASAGLAR KWIKPEN U-100 INSULIN) 100 unit/mL (3 mL) inpn INJECT 20 UNITS SUBCUTANEOUSLY ONCE DAILY AT BEDTIME HUMALOG KWIKPEN INSULIN 100 unit/mL inpn INJECT 12 TO 20 UNITS SUBCUTANEOUSLY WITH MEALS DIRECTED COMPOUNDED PRESCRIPTION Referral: wound clinic, [facility] silver sulfADIAZINE (SSD) 1 % cream Apply 1 application to affected area once daily. nortriptyline (PAMELOR) 50 mg capsule TAKE ONE CAPSULE BY MOUTH ONCE DAILY AT BEDTIME cetirizine (ZYRTEC) 10 mg tablet TAKE ONE TABLET BY MOUTH ONCE DAILY Tadalafil (CIALIS) 20 mg tab(s) Take 1 tablet by mouth once daily. blood sugar diagnostic (FREESTYLE LITE STRIPS) test strip Check blood glucose three times daily. Dx: E11.42, Insulin dependent Blood-Glucose Meter (FREESTYLE LITE METER) monitoring kit Freestyle LITE Meter Kit - Dx: Type 2 DM - Controlled E11.9 SANTYL ointment Apply once daily insulin needles, DISPOSABLE, (BD INSULIN PEN NEEDLE UF) 31 gauge x 5/16 ndle USE TO GIVE INSULIN INJECTIONS 4 TIMES DAILY FREESTYLE LANCETS 28 gauge misc USE DIRECTED 3 TO 4 TIMES DAILY TO TEST BLOOD GLUCOSE Review of Systems: The remainder of the review of systems is negative. PE: 11/07/18 0924 BP: 126/70 Pulse: 80 Resp: 20 Temp: 36.3 ?C (97.3 ?F) TempSrc: Left Tympanic Weight: 99.3 kg (219 lb) Gen: AANDO, NAD, non-toxic appearing, Pleasant, cooperative HEENT: NT/AC, PERRLA, EOMs intact b/l, nares clear and patent b/l, pharynx without erythema, exudate or lesions. Uvula midline. MMM Neck: supple, No cervical LAD, no thyromegaly, no carotid bruits CV: RRR, normal S1 and S2, 2/6 HSM RUSB?murmurs, no gallops, no rubs, Pulses 2+ and symmetric in UE and LE b/l Lungs: normal respiratory effort, bibasilar crackles. Healed sternal incision Abd: soft, NT, ND, +BS, no hepatosplenomegaly MS: peripheral atrophy hands and less active ROM and use of hands and arms Legs also with atrophy changes Mild trace right lower leg >left lower leg edema Neuro: CN II-XII intact b/l, strength 5/5 b/l UE and LE, DTRs 2/4 UE and LE, sensation intact. Skin: warm, dry, intact, see above? ? ASSESSMENT/PLAN: 1. Type 2 diabetes mellitus with complication, without long- term current use of insulin (HCC) - ICD9: 250.90, ICD10: E11.8 (primary diagnosis) Controlled. - Continue current medications - Blood glucose monitoring on a once a day schedule 2. Weight gain - ICD9: 783.1, ICD10: R63.5 - rx as below, fluid retention - FUROSEMIDE 20 MG TABLET 3. Bibasilar crackles - ICD9: 786.7, ICD10: R09.89 - CHF related likely, CXR if symptoms don't improve in 2-3 days - FUROSEMIDE 20 MG TABLET - XR CHEST 2V FRONTAL/LAT 4. ED (erectile dysfunction) of organic origin - ICD9: 607.84, ICD10: N52.9 - rx as below - VARDENAFIL 20 MG TABLET 5. 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 (HCC) - ICD9: 414.01, 411.1, ICD10: I25.110 - stable, has CHF, continue to monitor BLOOD PRESSURE and weights and limit salt intake 6. Vitamin B12 deficiency - ICD9: 266.2, ICD10: E53.8 - continue vitamin B12 7. Dyslipidemia - ICD9: 272.4, ICD10: E78.5 - to be determined upon return of lab results - Encouraged following a low fat, low cholesterol diet. - Discussed the benefits of regular aerobic exercise and weight loss. 8. Anemia, unspecified type - ICD9: 285.9, ICD10: D64.9 - improved Avery Escalante, DO To ER if develops chest pain, shortness of breath, or severe worsening of symptoms. Discussed risks, benefits, alternatives, and potential side effects of medications. Patient expressed understanding and agreed with the plan. Avery Escalante DO [address] [place] [address] Referring Provider: AVERY ESCALANTE [[id number]] Allergies As of Date: 11/07/2018 Noted Allergy Reaction LIPITOR (ATORVASTATIN CALCIUM) 01/07/2015 15 - Contraindication- Medical [facility]* Comments: Elevated LFTs and elevated CK level METFORMIN 03/01/2013 6 - Diarrhea Date Reviewed: 11/07/2018 Reviewed by: Teodora Cochran LPN - Fully Assessed Reason for Visit: Follow Up [171] Cmt: 3 months Primary Visit Diagnosis:Type 2 diabetes mellitus with complication, without long-term current use of insulin (HCC) [E11.8] Other Visit Diagnoses:Weight gain [R63.5] Bibasilar crackles [R09.89] ED (erectile dysfunction) of organic origin [N52.9] 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 (HCC) [I25.110] Vitamin B12 deficiency [E53.8] Dyslipidemia [E78.5] Anemia, unspecified type [D64.9] Order(s):furosemide (LASIX) 20 mg tabletTake 1 tablet by mouth twice daily. As needed for edemaDisp: 60 tabletRfl: 3 Vardenafil HCl (LEVITRA) 20 mg tabletTake 1 tablet by mouth as needed.Disp: 30 tabletRfl: 3 XR CHEST 2V FRONTAL/LAT [[id number]] Order #: [id number] FUTURE Prescriptions as of 11/07/2018 Sig: FUROSEMIDE 20 MG TABLET Take 1 tablet by mouth twice * DIFLORASONE 0.05 % TOPICAL CR* APPLY CREAM TO AFFECTED AREA* KETOCONAZOLE 2 % TOPICAL CREAM APPLY TO AFFECTED AREA ON FA* CELECOXIB 200 MG CAPSULE Take 1 capsule by mouth once * BIOTIN 1 MG CAPSULE TAKE ONE TABLET BY MOUTH ONCE* CHOLECALCIFEROL (VITAMIN D3) * TAKE 1 CAPSULE BY MOUTH ONCE * LUIS JESUS U-100 INSULI* INJECT 20 UNITS SUBCUTANEOUSL* ASPIRIN 81 MG CHEWABLE TABLET 2 tablets by ORAL/FEEDING TUB* GABAPENTIN 300 MG CAPSULE Take 3 capsules by mouth ever* ROSUVASTATIN 10 MG TABLET Take 1 tablet by mouth every * ASPIRIN 81 MG CHEWABLE TABLET TAKE 2 TABLETS BY MOUTH OR FE* METOPROLOL TARTRATE 25 MG TAB* Take 0.5 tablets by mouth abdiaziz* MAGNESIUM 250 MG TABLET Take 250 mg [...] 31 GAUGE* USE TO GIVE INSULIN INJECTION* ACETAMINOPHEN 325 MG TABLET Take 2 tablets by mouth every* INSULIN LISPRO (U-100) 100 UN* INJECT 12 TO 20 UNITS SUBCUTA* INSULIN GLARGINE (U-100) 100 * INJECT 20 UNITS SUBCUTANEOUSL* HUMALOG KWIKPEN (U-100) INSUL* INJECT 12 TO 20 UNITS SUBCUTA* COMPOUNDED PRESCRIPTION Referral: wound clinic, [place]* SILVER SULFADIAZINE 1 % TOPIC* Apply 1 application to affect* NORTRIPTYLINE 50 MG CAPSULE TAKE ONE CAPSULE BY MOUTH ONC* CETIRIZINE 10 MG TABLET TAKE ONE TABLET BY MOUTH ONCE* BLOOD SUGAR DIAGNOSTIC STRIPS Check blood glucose three georgie* BLOOD-GLUCOSE METER KIT Freestyle LITE Meter Kit - Dx* VARDENAFIL 20 MG TABLET Take 1 tablet by mouth as nee* SANTYL 250 UNIT/GRAM TOPICAL * Apply once daily PEN NEEDLE, DIABETIC 31 GAUGE* USE TO GIVE INSULIN INJECTION* FREESTYLE LANCETS 28 GAUGE USE DIRECTED 3 TO 4 TIMES * Problem List As Of Date 11/07/2018 Noted Resolved Diabetes 1.5, 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 Hyperlipidemia [E78.5] INVALID FOR* More... Diabetes type 2, controlled [E11.9] INVALID FOR* Lower back pain [M54.5] INVALID FOR* More... Hearing loss [H91.90] INVALID FOR* Dizziness [R42] INVALID FOR* Other musculoskeletal symptoms referable to mixon*INVALID FOR* Hereditary and idiopathic peripheral neuropathy*INVALID FOR* Vitamin B12 deficiency [E53.8] INVALID FOR* PAD (peripheral artery disease) (HCC) [I73.9] INVALID FOR* Small vessel disease (HCC) [I73.9] INVALID FOR* DM (diabetes mellitus), type 2 with neurologica*INVALID FOR* More... 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 Coronary artery disease involving [place] ricardo*INVALID FOR* More... C. difficile colitis [A04.72] INVALID FOR* More... More... Nicotine use disorder, F17.2 [F17.200] INVALID FOR* More... Hypotension [I95.9] INVALID FOR*04/14/2018 More... Cardiac insufficiency (HCC) [I50.9] INVALID FOR*04/14/2018 More... Atelectasis [J98.11] INVALID FOR* More... Post-operative pain [G89.18] INVALID FOR* More... Depression [F32.9] INVALID FOR* More... Transition of care performed with sharing of cl*INVALID FOR* More... Bilateral pneumothoraces [J93.9] INVALID FOR* More... Discharge planning issues [Z02.9] INVALID FOR* More... Weight gain [R63.5] INVALID FOR* Decubitus ulcer of right heel [L89.619] INVALID FOR* History of sternectomy [Z98.890] INVALID FOR* Hx of CABG [Z95.1] INVALID FOR* Skin wound from surgical incision [T14.8XXA] INVALID FOR* Localized bacterial infection of skin [L08.9, B*INVALID FOR* Essential hypertension [I10] INVALID FOR* Other hyperlipidemia [E78.49] INVALID FOR* Coronary artery disease involving [place] ricardo*INVALID FOR* Raynaud's phenomenon without gangrene [I73.00] INVALID FOR* Dyslipidemia [E78.5] INVALID FOR* Anemia [D64.9] INVALID FOR* ED (erectile dysfunction) of organic origin [N5*INVALID FOR* Bibasilar crackles [R09.89] INVALID FOR* Prescriptions ordered this encounter Disp Refills Start End FUROSEMIDE 20 MG TABLET 60 t* 3 11/07/2018 Route: ORAL Sig: Take 1 tablet by mouth twice daily. As needed for edema VARDENAFIL 20 MG TABLET 30 t* 3 11/07/2018 Class: Print RX Route: ORAL Sig: Take 1 tablet by mouth as needed. Medications Discontinued During This Encounter lisinopril 2.5 mg tablet 90 t* 3 05/25/2018 11/07/2018 Route: ORAL Sig: Take 1 tablet by mouth once daily. Disc: Reason for discontinue is not on file. Tadalafil (CIALIS) 20 mg tab(s) 36 t* 11 01/30/2018 11/07/2018 Class: Print RX Route: ORAL Sig: Take 1 tablet by mouth once daily. Disc: Reason for discontinue is not on file. furosemide (LASIX) 20 mg tablet 30 t* 3 06/23/2018 11/07/2018 Route: ORAL Sig: Take 1 tablet by mouth once daily. Disc: Reason for discontinue is not on file. Encounter Status:Closed by AVERY ESCALANTE DO on 11/07/18 OT D/C SUMMARY Observed: 11/01/2018 Status: F Source: [place] 3:28 PM [facility] REPOSITORY [facility] [address] [place] [address]. [address] [place] [address] / REHABILITATION SERVICES DISCHARGE SUMMARY MR#: [id number] Acct: [id number] Name: CESAR GEORGE Rep #: [id number] : 1960 58 From: Marita Jacob Referring Dr.: José Miguel Singleton MD Status: REG RCR Eval Date: Discharge Date: HP - OT D/C Summary It has been my pleasure to treat CESAR GEORGE under orders from José Miguel Singleton MD, for the diagnosis of Weakness of B hand; Neuropathy for a total of 9 visit(s). Please see the following information for a summary of their discharge status. - Overall Improvement % Improvement: 25 - hands have been ongoing for last 2-3 years - Objective Objective/Function: Reassessment completed on this date of 11/01/18. Results are as follows: ROM. Wrist. - Flexion: R 0-36, L 0-46. - Extension R 0- 30, L 0-32. Hand. MCP digits 2-5th. R 0-88, 12-96, 0-90, 16-92. L 10-83, 10-87, -14-0-85 , 0- 92. PIP 2nd - 5th. R 33-106, 26-104, 56-106, 68-17. L 20-90, 31-97, 23-103, 45-92. DIP 2nd - 5th. R 0-53, 5-63, 10-55, 29-51. L 9-23, 0-50, 0-40, 13-53. Strength: Conference Assistant in flexed position: R 66, L 61 lbs. Conference Assistant in extended position: R 70, L 61 lbs. Lateral: 15, L 11 lbs. Three Jaw ( increase slipping of MF): R 9, L 8 lbs. Tip Pinch: R 8, L 6 lbs. Sensory testing from previous testing still measured at sensory deficits with being red lined on certain fingers. - Goals Patient Goals: Regain Mobility, Regain Strength, Improve Fine Motor Skills, Sleep Better, Decrease Tingling/Numbness, Increase ROM, Be More Independent in ADLS, Resume Former Household Responsibilities (Cooking,Cleaning,Yard, etc.), Resume Hobbies Goal:: Cesar to increase B broker in charge strength by 10-15 lbs to promote increase broker in charge and pinch strength needed to complete ADL/IADls by d/c. Goal:: Cesar to complete B pain management techniques to B hand to promote management of neuropathy symptoms with good safety awareness to decrease risk of injury by d/c. Goal:: Cesar to be mod I to complete ability to complete 9 hole pegboard test to promote increased finger dexterity and increased sensory awareness by d/c. Goal:: Cesar to complete sensory compensations with B hands to promote increased participation with tasks and decrease risk of further injury 100% of the time by d/c. Goal:: Cesar to be mod I to don gloves with B hands with sensory based compensations 4/5 tirals 80% of the time by end of 2 weeks. Goal:: Cesar to complete work related tasks with necessary compensations and a/e to promote increased ability to complete task and promote safety by d/c. Goal:: Alina to be mod I to complete button up shirt with use of button hook to promote increased ability to complete tasks 2/3 trials 75% of the time by d/c. - Plan Plan: Cesar will be discharged at this time due to limited progress. Skilled occupational therapy completed to promote compensations due to sensory related deficits. Handouts of all topics discussed have been provided. Additionally, OT has made adaptive piece of equipment to help don gloves and he is able to complete donning gloves mod I at this time. He is now wearing ulna nerve related splints OT previously made to help decreased any further loss of ROM. He is to call with questions/concerns. - D/C Information If there are questions or concerns regarding this patient's occupational therapy, please fell free to call me at [phone]. Thank you for the referral of this patient. Sincerely, Marita Jacob <Electronically signed by Marita Jacob > 11/01/18 1528 CC: José Miguel Singleton MD; Avery Fischer DO GUSTAVO Signed CBC Collected: 10/30/2018 Status: F Source: [place] 4:30 PM [facility] [place] REPOSITORY TYPE CODE TESTS RESULT OUT OF REFERENCE UNITS RANGE LAB WBC 3.70-11.00 k/uL WBC 6.78 LAB RBC 4.20-6.00 m/uL RBC 4.72 LAB HGB 13.0-17.0 g/dL Hemoglobin 15.2 LAB HCT 39.0-51.0 % Hematocrit 46.7 LAB MCV 80.0-100.0 fL MCV 98.9 LAB MCH 26.0-34.0 pG MCH 32.2 LAB MCHC 30.5-36.0 g/dL MCHC 32.5 LAB RDWCV 11.5-15.0 % RDW-CV 13.2 LAB PLTCT 150-400 k/uL Platelet Count 252 LAB MPV 9.0-12.7 fL MPV 11.3 LAB ABSNUC <0.01 k/uL Absolute nRBC <0.01 Performed By: #### CBC, CMP, LIPB, HBA1C #### [facility] [address] [place], [place] [address] COMP METABOLIC PANEL Collected: 10/30/2018 Status: F Source: [place] 4:30 PM [facility] [place] REPOSITORY TYPE CODE TESTS RESULT OUT OF REFERENCE UNITS RANGE LAB TP 6.3-8.0 g/dL Protein, Total 7.5 LAB ALB 3.9-4.9 g/dL Albumin 4.3 LAB CA 8.5-10.2 mg/dL Calcium, Total 9.9 LAB TBIL 0.2-1.3 mg/dL Bilirubin, Total 0.6 LAB ALKP 38-113 U/L Alkaline Phosphatase 86 LAB AST 14-40 U/L AST 28 LAB GLU 74-99 mg/dL Glucose High 132 Result Comment: The [place] Diabetes Association (ADA) provides guidance for cutoff [...] Standards of Medical Care in Diabetes 2016, [place] [employer] Association. Diabetes Care. 2016.39(Suppl 1). LAB BUN 9-24 mg/dL BUN 18 LAB CRET 0.73-1.22 mg/dL Creatinine 1.09 LAB NA 136-144 mmol/L Sodium 141 LAB K 3.7-5.1 mmol/L Potassium 5.1 LAB CL 97-105 mmol/L Chloride 100 LAB CO2 22-30 mmol/L CO2 30 LAB [...] actual GFR. Performed By: #### CBC, CMP, LIPB, HBA1C #### [facility] [address] [place], [place] [address] LIPID PANEL, BASIC Collected: 10/30/2018 Status: F Source: [place] 4:30 PM [facility] REPOSITORY TYPE CODE TESTS RESULT OUT OF REFERENCE UNITS RANGE LAB CHOL <200 mg/dL Cholesterol 182 Result Comment: <200 mg/dL, Desirable 200-239 mg/dL, Borderline high >239 mg/dL, High LAB TRIGLY <150 mg/dL Triglyceride 106 Result Comment: <150 mg/dL, Normal 150-199 mg/dL, Borderline high 200-499 mg/dL, High >499 mg/dL, Very high LAB HDL >39 mg/dL HDL-Cholesterol 51 Result Comment: 40-59 mg/dL, Acceptable >59 mg/dL, High: Negative risk factor for coronary heart disease <40 mg/dL, Low: Positive risk factor for coronary heart disease LAB LDL <100 mg/dL LDL-Cholesterol High 110 Result Comment: <100 mg/dL, Optimal 100-129 mg/dL, [...] 100 mg/dL LAB FT hrs Fasting Time 18 LAB VLDL <30 mg/dL VLDL Cholesterol 21 LAB TCHDL <5.10 TC:HDL Ratio 3.57 LAB LDLHDL <2.54 LDL:HDL Ratio 2.16 Result Comment: Reference: 1. National Cholesterol Education Program ATP III Guideline At-A-Glance Quick Desk Reference: National Heart, Lung, and Blood [place]. National Institutes of Health. 2001: NIH Publication No. 01-3305. 2. An International Atherosclerosis Society position paper: global recommendations for the management of dyslipidemia: executive summary, Atherosclerosis. 2014: 232(2):410-413. Performed By: #### CBC, CMP, LIPB, HBA1C #### [facility] [address] [place] [id number] HEMOGLOBIN A1C Collected: 10/30/2018 Status: F Source: [place] 4:30 PM [facility] REPOSITORY TYPE CODE TESTS RESULT OUT OF REFERENCE UNITS RANGE LAB HGBA1C 4.3-5.6 % High Hemoglobin A1c 6.2 Result Comment: [place] Diabetes Association guidelines indicate that patients with HgbA1c in the range 5.7-6.4% are at increased risk for development of diabetes, and intervention by lifestyle modification may be beneficial. HgbA1c greater or equal to 6.5% is considered diagnostic of diabetes. LAB HBA0 mg/dL Est. Average Glucose 131 Result Comment: eAG: (Estimated average glucose) is a calculated value from HgbA1c and is brewery representative of the average blood glucose level in the last 2-3 month period. Performed By: #### CBC, CMP, LIPB, HBA1C #### [facility] [address] [place], [place] [address] ALBUMIN/CREAT RATIO Collected: 10/30/2018 Status: F Source: [place] 4:30 PM [facility] REPOSITORY TYPE CODE TESTS RESULT OUT OF REFERENCE UNITS RANGE LAB UCRR 20-300 mg/dL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 INVALID FOR* More... Hearing loss [H91.90] INVALID FOR* Dizziness [R42] INVALID FOR* Other musculoskeletal symptoms referable to mixon*INVALID FOR* Hereditary and idiopathic peripheral neuropathy*INVALID FOR* Vitamin B12 deficiency [E53.8] INVALID FOR* PAD (peripheral artery disease) ([facility]) [I73.9] INVALID FOR* Small vessel disease ([facility]) [I73.9] INVALID FOR* DM (diabetes mellitus), type 2 with neurologica*INVALID FOR* More... 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 Coronary artery disease involving nanwalek ricardo*INVALID FOR* More... C. difficile colitis [A04.72] INVALID FOR* More... More... Nicotine use disorder, F17.2 [F17.200] INVALID FOR* More... Hypotension [I95.9] INVALID FOR*04/14/2018 More... Cardiac insufficiency (HCC) [I50.9] INVALID FOR*04/14/2018 More... Atelectasis [J98.11] INVALID FOR* More... Post-operative pain [G89.18] INVALID FOR* More... Depression [F32.9] INVALID FOR* More... Transition of care performed with sharing of cl*INVALID FOR* More... Bilateral pneumothoraces [J93.9] INVALID FOR* More... Discharge planning issues [Z02.9] INVALID FOR* More... Weight gain [R63.5] INVALID FOR* Decubitus ulcer of right heel [L89.619] INVALID FOR* History of sternectomy [Z98.890] INVALID FOR* Hx of CABG [Z95.1] INVALID FOR* Skin wound from surgical incision [T14.8XXA] INVALID FOR* Localized bacterial infection of skin [L08.9, B*INVALID FOR* Essential hypertension [I10] INVALID FOR* Other hyperlipidemia [E78.49] INVALID FOR* Coronary artery disease involving nanwalek ricardo*INVALID FOR* Raynaud's phenomenon without gangrene [I73.00] INVALID FOR* Encounter Status:Closed by ERNESTINA SHAHID LPN on 10/12/18 PROGRESS Observed: 10/12/2018 Status: COMPLETED Source: [place] 11:22 AM [facility] [place] REPOSITORY O ID: [id number] Author: Ernestina Shahid LPN Service: (none) Author Type: (none) Type: Progress Notes Filed: 10/12/2018 11:23 AM Note Text: Patient presents for B-12 injection. Denies any problems at this time. Patient instructed on any SE of medication, verbalized understanding and agreed to proceed with treatment. Tolerated injection well. Ernestina Shahid LPN BASIC METABOLIC Collected: 09/29/2018 Status: F Source: [place] PROFILE (BMP) 1:18 PM [facility] REPOSITORY TYPE CODE TESTS RESULT [...] GAP 5 Performed By: #### L500.2500 #### [facility] [address] [place], [place], [address] BNP,B-TYPE NATRIURETIC Collected: 09/29/2018 Status: F Source: [place] PEPTIDE 1:18 PM [facility] REPOSITORY TYPE CODE TESTS RESULT OUT OF RANGE REFERENCE UNITS LAB L503.6620 0-100 pg/mL Normal B-TYPE 71.2 LESLI PEP Performed By: #### L503.6620 #### [facility] [address] [place], [place], [address] CARDIOLOGY VISIT Observed: 09/29/2018 Status: F Source: [place] REPORT 12:40 PM [facility] REPOSITORY [facility] [address] [place] [address] OFFICE VISIT Date of Service: 09/29/18 MR#: [id number] Acct: [id number] Name: CESAR GEORGE Rep #: [id number] : 1960 Provider: DREW Jean Age/Sex: 58/M Location[place] [facility] Status: Signed HPI HPI Details: CESAR GEORGE, is a 58 M who presents to the office today for a cardiovascular outpatient follow-up. He has history of coronary artery disease status post non-ST elevated myocardial infarction and CABG with MACK to LAD, SVG to OM, and SVG to PDA of LCx in March 2018 at [facility], hypertension, and diabetes mellitus. After last office [...] Lt brachial Intake Visit Reasons: 3 M FUPFM Allergies atorvastatin Adverse Reaction (Verified 09/29/18 09:19) [...] to left PDA by Dr. Zhu of [facility] Plan Patient denies any chest pain, arm [...] R60.9 09/29/18 1240 <Electronically signed by Tommie LOPEZ> Date Tommie LOPEZ Cosigner Signature: Date (if applicable) CC: INITAL EVALUATION (1) Observed: 09/22/2018 Status: F Source: [place] - PT 2:02 PM [facility] REPOSITORY [facility] [address] [place] [address] Fax REHABILITATION SERVICES INITIAL EVALUATION MR#: [id number] Acct: [id number] Name: CESAR GEORGE Rep #: [id number] : 1960 58 From: Martha Flores MPT Referring Dr.: José Miguel Singleton MD Status: REG RCR Insurance: [facility] SELF PAY INSURANCE Patient's Visit Information CESAR GEORGE is a 58 year old M [...] to be FAXED BACK to us at [phone] for Medicare purposes. For Medicare only, by signing this I certify the plan of care. Please let me know if there are questions or concerns regarding this plan of care. Physician Signature: Date: <Electronically signed by Martha Flores MPT> 09/22/18 1402 CC: José Miguel Singleton MD; Avery Fischer DO Signed OT GENERAL EVALUATION Observed: 09/21/2018 Status: F Source: [place] 5:51 PM [facility] REPOSITORY [facility] [address] [place], [place] [address] Fax REHABILITATION SERVICES INITIAL EVALUATION MR#: [id number] Acct: [id number] Name: CESAR GEORGE Rep #: [id number] : 1960 58 From: Marita Jacob Referring Dr.: José Miguel Singleton MD Status: REG R Insurance: [facility] Date: SELF PAY INSURANCE Patient's Visit Information CESAR GEORGE is a 58 year old M, referred to Occupational Therapy by José Miguel Singleton MD, with a diagnosis of Weakness of B ahnd; Neuropathy. Date of Evaluation: 09/20/18 Occupational Therapist: Marita Jacob - Subjective Subjective: Arrived and noted that he has been referred to OT due to wrist and hand pain. He is familiar to OT as previous seen. Cesar further explained that he had CABG in March 2018. He noted he has been completing cardiac rehab at [facility] and is still completing at this time. [...] but R is more limited. - Strength Conference Assistant: R 67, L 52 Lateral Pinch: R 14, L 10 Tripod Pinch: R 8, L 8 Tip-to-Tip Pinch: R 10, L 6 Strength Comments: Fingers easily slip off pincer meter. No pain. Pt. reports increased difficulty completing [facility] pinch testing on L hand due to [...] AND Functional Sections: 51 - Goals Goal:: Cesar to increase B broker in charge strength by 10-15 lbs to promote increase broker in charge and pinch strength needed to complete ADL/IADls by d/c. Goal:: Cesar to complete B pain management techniques to B hand to promote management of neuropathy symptoms with good safety awareness to decrease risk of injury by d/c. Goal:: Cesar to be mod I to complete ability to complete 9 hole pegboard test to promote increased finger dexterity and increased sensory awareness by d/c. Goal:: Cesar to complete sensory compensations with B hands to promote increased participation with tasks and decrease risk of further injury 100% of the time by d/c. Goal:: Cesar to be mod I to don gloves with B hands with sensory based compensations 4/5 tirals 80% of the time by end of 2 weeks. Goal:: Cesar to complete work related tasks with necessary compensations and a/e to promote increased ability to complete task and promote safety by d/c. Goal:: Alina to be mod I to complete button up shirt with use of button hook to promote increased ability to complete tasks 2/3 trials 75% of the time by d/c. - Rehabilitation General Assessment: Cesar arrived for OT evaluation on this date [...] to promote compensations with neuropathy, FMC, increased broker in charge strengthening, compensations and adaptions to promote completing self-care/IADLs and increase ability to return to OF. OT will adjust and completed management of hands with use of protective splint to decrease risk of further deformity. TEXT: Thank you for the opportunity to evaluate your patient. For Medicare and Medicare HMO plans, please review the plan of care and approve it. It will need to be FAXED BACK to us at [phone] for Medicare purposes. Please let me know if there are questions or concerns regarding this plan of care. Physician Signature: Date: <Electronically signed by Mairta Jacob > 09/21/18 1751 CC: José Miguel Singleton MD; Avery Fischer DO KMElizabeth Signed For Medicare only, by signing this I certify the plan of care. Physicians Signature Date CBC W/DIFF, AUTOMATED Collected: 09/18/2018 Status: F Source: [place] 11:27 AM [facility] REPOSITORY TYPE CODE TESTS RESULT [...] Lymph 1.53 Performed By: #### L100.0100 #### [facility] [address] [place] [address]. [place], [place], [address] BASIC METABOLIC Collected: 09/18/2018 Status: F Source: [place] PROFILE (BMP) 11:27 AM [facility] REPOSITORY TYPE CODE TESTS RESULT [...] GAP 9 Performed By: #### L500.2500 #### [facility] [address] [place], [address] PROGRESS Observed: 09/12/2018 Status: COMPLETED Source: [place] 9:14 AM [facility] REPOSITORY HNO ID: [id number] Author: Radha Gannon Cma Service: (none) Author Type: (none) Type: Progress Notes Filed: 09/12/2018 9:14 AM Note Text: HM letter mailed to patient. PROGRESS Observed: 09/11/2018 Status: COMPLETED Source: [place] 9:40 AM [facility] REPOSITORY HNO ID: [id number] Author: Catracho Mackenzie) Service: (none) Author Type: Registered Nurse Type: [...] date of . 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 Denies any problems at this time. Patient instructed on any SE of medication, verbalized understanding and agreed to proceed with treatment. Tolerated injection well. Ernestina Shahid LPN CNNURSE Observed: 09/11/2018 Status: COMPLETED Source: [place] 9:30 AM [facility] REPOSITORY Nurse Visit (FAMPWS) CESAR GEORGE JR. ([id number]) 1960 M Date Time Provider Department 09/11/18 9[facility] [facility] During your visit today, we recorded the following information about you: Ernestina Shahid LPN 09/11/2018 9:38 AM Signed Patient presents for B-12 injection. Denies any problems at this time. Patient instructed on any SE of medication, verbalized understanding and agreed to proceed with treatment. Tolerated injection well. Ernestina Shahid LPN Referring Provider: AVERY ESCALANTE [[id number]] Allergies As of Date: 09/11/2018 Noted Allergy Reaction LIPITOR (ATORVASTATIN CALCIUM) 01/07/2015 15 - Contraindication- Medical Olsen* Comments: Elevated LFTs and elevated CK level METFORMIN 03/01/2013 6 - Diarrhea Date Reviewed: 08/11/2018 Reviewed by: Teodora Cochran LPN - Fully Assessed Reason for [...] [E53.8] INVALID FOR* PAD (peripheral artery disease) ([facility]) [I73.9] INVALID FOR* Priority: C Small vessel disease ([facility]) [I99.9] INVALID FOR* DM (diabetes mellitus), type 2 with neurologica*INVALID FOR* Priority: E More... Diabetes mellitus with background retinopathy (*INVALID FOR*07/13/2016 Type 1 diabetes mellitus with mild nonprolifera*INVALID FOR*06/08/2016 Other vitreous opacities - Both Eyes [H43.399] INVALID FOR* Lens replaced by other means - Both Eyes [Z96.1]INVALID FOR*07/13/2016 CVA (cerebral vascular accident) ([facility]) [I63.9] INVALID FOR* Type 2 diabetes, controlled, [...] Priority: C More... Coronary artery disease involving nanwalek ricardo*INVALID FOR* Priority: A More... C. difficile [...] [E78.49] INVALID FOR* Coronary artery disease involving nanwalek ricardo*INVALID FOR* Raynaud's phenomenon without gangrene [I73.00] INVALID FOR* Encounter Status:Closed by ERNESTINA SHAHID LPN on 09/11/18 JAZLYN Observed: 09/11/2018 Status: COMPLETED Source: [place] 12:00 AM [facility] REPOSITORY Patient Outreach (FAMPWS) CESAR GEORGE JR. ([id number]) 1960 M Date Time Provider Department 09/11/18 CATRACHO MACKENZIE) FAMPWS During your visit today, [...] date of . 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 Coronary artery disease involving nanwalek ricardo*INVALID FOR* Priority: A More... C. difficile [...] [E78.49] INVALID FOR* Coronary artery disease involving nanwalek ricardo*INVALID FOR* Raynaud's phenomenon without gangrene [I73.00] INVALID FOR* Letter Text Family Medicine [place] [address] [facility] [address] [facility] [address] Dept: [phone] Rdaha Gannon Cma, [facility] M.A. September 12, 2018 Cesar George Jr. [address] [place] [id number] Dear Mr. George In an effort to serve your healthcare [...] have that office fax the results to [phone] Attn: Avery Escalante DO or bring the records with you to your appointment. We will gladly update your record. If you have any questions, please feel free to call the office at [phone] or message us via [employer]. Thank you for choosing the [facility]. Sincerely, Radha Gannon Cma, [facility] M.A. (electronically signed to expedite mailing) Encounter Status:Closed by JESUSITA HAYDEN on 09/11/18 PROGRESS Observed: 08/11/2018 Status: COMPLETED Source: [place] 9:58 AM [facility] REPOSITORY HNO ID: [id number] Author: vAery Escalante Service: (none) Author Type: Physician Type: Progress Notes Filed: 08/14/2018 7:42 AM Note Text: Patient presents with: Follow Up: 3 months Imm/Inj: Flu Vaccine HPI: Cesar George Jr. is a 58 year old male who presents to the office today for review of health conditions. Concerns today: Seen in office 05/10, at that time- About 4 weeks out from multivessel CABG surgery after presenting to [facility] for fatigue and left rib pain after baling hay, was found to have critical stenosis of LAD and several other arteries, was transported up to [facility] and had bypass surgery performed. He [...] time. He does not check BP's generally. Cesar gets sporadic irregular exercise. PAST MEDICAL HISTORY Diagnosis Date - Cataract b/l, eye exam 05/29/13 - CTS (carpal tunnel syndrome) 10/2013 b/l, chronic, Dr. 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 Mazin Hinojosa Neuro, likely from DM and Vitamin B12 defic - Stroke ([facility]) 10/01/13 - Ulnar neuropathy 10/2013 b/l, chronic, [...] E11.42, Insulin dependent FREESTYLE LANCETS 28 gauge [facility] USE DIRECTED 3 TO 4 TIMES DAILY TO TEST BLOOD GLUCOSE Blood-Glucose Meter (FREESTYLE LITE METER) monitoring kit Freestyle LITE Meter Kit - Dx: Type 2 DM - Controlled E11.9 lisinopril 2.5 mg tablet Take 1 tablet by mouth once daily. COMPOUNDED PRESCRIPTION Referral: wound clinic, [facility] Review of Systems: The remainder of the [...] him today 7. 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 (HCC) - [...] with the plan. Avery Escalante DO [address] [place] [address] PROGRESS Observed: 08/11/2018 Status: COMPLETED Source: [place] 9:41 AM [facility] REPOSITORY HNO ID: [id number] Author: Teodora Cochran LPN Service: (none) Author Type: (none) Type: Progress Notes Filed: 08/14/2018 7:42 AM Note Text: 58 year old male here for INACTIVATED INFLUENZA VACCINE. 6398-0787 Season Patient is identified by name and date of : Yes [] CONTRAINDICATIONS color enhanced section Age less than 6 months? No Allergy to eggs, chicken, chicken feathers, or chicken dander? No Allergy to thimerosal (a preservative) or formaldehyde, gelatin? No History of severe reaction to any vaccine component or a previous dose of influenza vaccination? 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 Yes See immunization activity in [facility] for details of immunizations adminstered today. Patient age: [age] year old For The 0784-7732 Flu Season 6-35 months old: Fluzone 0.25 [...] time. CNOV Observed: 08/11/2018 Status: COMPLETED Source: [place] 9:20 AM [facility] REPOSITORY [facility] CESAR GEORGE JR. ([id number]) 1960 M Date Time Provider Department 08/11/18 9:20 AM AVERY ESCALANTE During your visit today, we recorded the following information about you: Temperature Pulse Respiration Blood pressure 97.3 degrees 76/minute 16/minute 116/60 Weight 94.3 kg Teodora Cochran COREY 08/14/2018 7:42 AM Signed 58 year old [...] dose of influenza vaccination? 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 Yes See immunization activity in [facility] for details of immunizations adminstered today. Patient age: [age] year old For The Flu Season 6-35 months old: Fluzone 0.25 [...] second dose in one months time. Avery Escalante, 08/14/2018 7:42 AM Signed Patient presents with: Follow Up: 3 months Imm/Inj: Flu Vaccine HPI: Cesar George Jr. is a 58 year old male who presents to the office today for review of health conditions. Concerns today: Seen in office 05/10, at that time- About 4 weeks out from multivessel CABG surgery after presenting to [facility] for fatigue and left rib pain after baling hay, was found to have critical stenosis of LAD and several other arteries, was transported up to [facility] and had bypass surgery performed. He [...] time. He does not check BP's generally. Cesar gets sporadic irregular exercise. PAST MEDICAL HISTORY Diagnosis Date - Cataract b/l, eye exam 05/29/13 - CTS (carpal tunnel syndrome) 10/2013 b/l, chronic, Dr. 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 Mazin Hinojosa Neuro, likely from DM and Vitamin B12 defic - Stroke ([facility]) 10/01/13 - Ulnar neuropathy 10/2013 b/l, chronic, [...] 3 Occupational History Occupation Employer Comment [employer] Social History Main Topics Smoking status: Never [...] once daily. COMPOUNDED PRESCRIPTION Referral: wound clinic, [facility] Review of Systems: The remainder of the [...] him today 7. 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 (HCC) - [...] agreed with the plan. Avery Escalante DO [address] [place] [address] Referring Provider: AVERY ESCAALNTE [[id number]] Allergies As of Date: 08/11/2018 Noted Allergy Reaction LIPITOR (ATORVASTATIN CALCIUM) 01/07/2015 15 - Contraindication- Medical Olsen* Comments: Elevated LFTs and elevated CK level METFORMIN 03/01/2013 6 - Diarrhea Date Reviewed: 08/11/2018 Reviewed by: Teodora Cochran LPN - Fully Assessed Reason for [...] without gangrene [I73.00] 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 (HCC) [I25.110] Other hyperlipidemia [E78.49] Essential hypertension [I10] Hereditary and idiopathic peripheral neuropathy [G60.9] Order(s):INFLUENZA VACCINE QUADRIVALENT AGE 3 YRS PLUS + IM [[id number]] Order #: [id number] FECAL OCCULT BLOOD TEST [SQIFOBT] Order #: [id number] FUTURE amLODIPine (NORVASC) 5 mg tabletTake 1 [...] this encounter LISINOPRIL 2.5 MG TABLET >> Teodora Cochran LPN 08/11/2018 9:36 AM >> TEODORA COCHRAN LPN TueAug 11, 2018 9:36 AM [...] [E53.8] INVALID FOR* PAD (peripheral artery disease) ([facility] [facility]) [I73.9] INVALID FOR* Priority: C Small vessel disease ([facility]) [I99.9] INVALID FOR* DM (diabetes mellitus), type 2 with neurologica*INVALID FOR* Priority: E More... Diabetes mellitus with background retinopathy (*INVALID FOR*07/13/2016 Type 1 diabetes mellitus with mild nonprolifera*INVALID FOR*06/08/2016 Other vitreous opacities - Both Eyes [H43.399] INVALID FOR* Lens replaced by other means - Both Eyes [Z96.1]INVALID FOR*07/13/2016 CVA (cerebral vascular accident) ([facility]) [I63.9] INVALID FOR* Type 2 diabetes, controlled, [...] Priority: C More... Coronary artery disease involving nanwalek ricardo*INVALID FOR* Priority: A More... C. difficile colitis [A04.72] INVALID FOR* Priority: I More... More... Nicotine use disorder, F17.2 [F17.200] INVALID FOR* Priority: B More... Hypotension [I95.9] INVALID FOR*04/14/2018 Priority: C More... Cardiac insufficiency ([facility]) [I50.9] INVALID FOR*04/14/2018 Priority: C More... Atelectasis [...] METABOLIC PANEL Collected: 07/26/2018 Status: F Source: [place] 9:59 AM [facility] REPOSITORY TYPE CODE TESTS RESULT OUT OF REFERENCE UNITS RANGE LAB TP 6.3-8.0 g/dL Protein, Total 7.5 LAB ALB 3.9-4.9 g/dL Albumin 4.4 LAB CA 8.5-10.2 mg/dL Calcium, Total 9.6 LAB TBIL 0.2-1.3 mg/dL Bilirubin, Total 0.6 LAB ALKP 38-113 U/L Alkaline Phosphatase 93 LAB AST 14-40 U/L AST 31 LAB GLU 74-99 mg/dL Glucose 78 Result Comment: The [place] Diabetes Association (ADA) provides guidance for cutoff [...] Standards of Medical Care in Diabetes 2016, [place] Diabetes Association. Diabetes Care. 2016.39(Suppl 1). LAB [...] GFR. Performed By: #### CMP, HBA1C #### [facility] [address] [place], [place] [address] HEMOGLOBIN A1C Collected: 07/26/2018 Status: F Source: [place] 9:59 AM [facility] REPOSITORY TYPE CODE TESTS RESULT OUT OF REFERENCE UNITS RANGE LAB HGBA1C 4.3-5.6 % High Hemoglobin A1c 6.2 LAB HBA0 mg/dL Est. Average Glucose 131 Result Comment: eAG: (Estimated average glucose) is a calculated value from HgbA1c and is brewery representative of the average blood glucose level in the last 2-3 month period. Performed By: #### CMP, HBA1C #### [facility] [address] [place], [place] [address] PROGRESS Observed: 07/21/2018 Status: COMPLETED Source: [place] 3:11 PM [facility] REPOSITORY HNO ID: [id number] Author: Suzette Strauss (Rt) Service: (none) Author Type: Whiskey Filterer Type: Progress Notes Filed: 07/21/2018 3:11 PM Note Text: Radiology Service Progress Note PATIENT NAME: Cesar George Jr. DATE OF SERVICE: July 21, [...] WO IVCON Observed: 07/21/2018 Status: F Source: [place] 3:10 PM [facility] [place] REPOSITORY * * *Final Report* * * DATE OF EXAM: Jul 21 2018 3:10PM [facility] 0294 - MRI BRAIN WO IVCON / [...] microvascular ischemia, similar to prior MRI 11/30/2016. Turning And Beading Machine Operator: KAYE Transcribe Date/Time: Jul 21 2018 4:01P Dictated by : BOBBY MENDOZA MD This examination was interpreted and the report reviewed and electronically signed by: BOBBY MENDOZA MD on Jul 21 2018 4:11PM EST [id number] BEDSIDE GLUCOSE Collected: 07/21/2018 Status: F Source: [place] 10:20 AM [facility] REPOSITORY Order Comment: ENTERED AND RESULTED MANUALLY DUE TO INVALID PROVIDER MNEMONIC TYPE CODE TESTS RESULT OUT OF RANGE REFERENCE UNITS LAB L501.080 70-110 mg/dL Normal BEDSIDE GLU 76 Result Comment: MANAGEMENT OF PATIENT CARE PER NURSING PROTOCOL Performed By: #### L501.080 #### [facility] Point of Care [address] [place] [address] CNPN Observed: 07/21/2018 Status: COMPLETED Source: [place] 12:00 AM [facility] REPOSITORY Telephone (MIQ) CESAR GEORGE JR. ([id number]) 1960 M Date Time Provider Department 07/21/18 AVERY ESCALANTE MIQ During your visit today, we recorded the following information about you: Lasha Morin PSR 07/21/2018 12:13 PM Addendum Patient is to see Dr Escalante on 08/11. Patient is wondering if he will need additional lab work done before his appointment on the . Patient would like a referral to Endocrinology. Patient would like to see HAKAN Hinojosa at [facility], but was not sure if he should [...] with neurological complications (HCC) [E11.49] Order(s):HGB A1C [[id number]] Order #: [id number] FUTURE COMP METABOLIC PANEL [SQCMP] Order #: [id number] FUTURE CONSULT TO ENDOCRINOLOGY [9007] Order #: [id number]: 1 Prescriptions as of 07/21/2018 Sig: FUROSEMIDE [...] [E53.8] INVALID FOR* PAD (peripheral artery disease) ([facility]) [I73.9] INVALID FOR* Priority: C Small vessel disease ([facility]) [I99.9] INVALID FOR* DM (diabetes mellitus), type 2 with neurologica*INVALID FOR* Priority: E More... Diabetes mellitus with background retinopathy (*INVALID FOR*07/13/2016 Type 1 diabetes mellitus with mild nonprolifera*INVALID FOR*06/08/2016 Other vitreous opacities - Both Eyes [H43.399] INVALID FOR* Lens replaced by other means - Both Eyes [Z96.1]INVALID FOR*07/13/2016 CVA (cerebral vascular accident) ([facility]) [I63.9] INVALID FOR* Type 2 diabetes, controlled, [...] Priority: C More... Coronary artery disease involving nanwalek ricardo*INVALID FOR* Priority: A More... C. difficile [...] CARDIOLOGY VISIT Observed: 07/19/2018 Status: F Source: [place] REPORT 2:27 PM [facility] REPOSITORY [facility] [address] [place] [address]. [address] [place] [address] OFFICE VISIT Date of Service: 07/19/18 MR#: [id number] Acct: [id number] Name: CESAR GEORGE Rep #: [id number] : 1960 Provider: DREW Jean Age/Sex: 58/M Location: [facility] Status: Signed HPI HPI Details: CESAR GEORGE, is a 58 M who presents to the office today for a cardiovascular outpatient follow-up. He has history of coronary artery disease status post non-ST elevated myocardial infarction in March 2018 and CABG with MACK to LAD, SVG to OM, and SVG to PDA of LCx in March 2018 at [facility], hypertension, and diabetes mellitus. He was evaluated at [facility] in March 2018 for chest pain, back pain, shortness of breath, and abnormal troponin. He underwent a heart catheterization that showed multivessel coronary artery disease and he was transferred to [facility] he underwent bypass surgery. His postoperative care [...] Reasons: S/P NSTEMI / [facility] - CABG Income Tax Analyst Required: No Accompanied by: none Is patient in pain?: No Allergies atorvastatin Adverse Reaction (Verified 07/19/18 12:54) Unknown metformin Adverse Reaction (Verified 07/19/18 12:54) Diarrhea Medications Tizanidine HCl [Zanaflex] 4 mg PO 4X/DAY PRN PRN 11/07/14 [History Confirmed 12/28/17] Ammonium Lactate [Amlactin] 57 gm TP PRN PRN 10/04/17 [History Confirmed 04/01/18] Baclofen 20 mg PO TID 12/19/17 [History Confirmed 04/02/18] Celecoxib [Celebrex] 200 mg [...] Supplemental Info Echocardiogram from May 2018 at [facility] showed ejection fraction of 55%, normal left ventricular diastolic function, normal RV size, normal right ventricular systolic function, and when compared to previous echocardiogram no significant changes. Heart catheterization from March 2018 showed elevated LVEDP, ejection fraction 50%, and nanwalek multivessel coronary artery disease. His left main [...] to left PDA by Dr. Zhu of [facility] Plan Patient denies any chest pain, arm [...] Barriers Work requirements. 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 Denies any problems at this time. Patient instructed on any SE of medication, verbalized understanding and agreed to proceed with treatment. Tolerated injection well. Ernestina Shahid LPN CNNURSE Observed: 07/19/2018 Status: COMPLETED Source: [place] 2:00 PM [facility] REPOSITORY Nurse Visit ([facility]AMPWS) CESAR GEORGE JR. ([id number]) 1960 M Date Time Provider Department 07/19/18 2[facility] [facility] your visit today, we recorded the following information about you: Ernestina Shahid LPN 07/19/2018 2:13 PM Signed Patient presents for B-12 injection. Denies any problems at this time. Patient instructed on any SE of medication, verbalized understanding and agreed to proceed with treatment. Tolerated injection well. Ernestina Shahid LPN Referring Provider: AVERY ESCALANTE [[id number]] Allergies As of Date: 07/19/2018 Noted Allergy [...] [E53.8] INVALID FOR* PAD (peripheral artery disease) ([facility]) [I73.9] INVALID FOR* Priority: C Small vessel [...] Priority: C More... Coronary artery disease involving nanwalek ricardo*INVALID FOR* Priority: A More... C. difficile [...] HISTORY AND Observed: 07/06/2018 Status: F Source: [place] PHYSICAL 8:21 PM [facility] REPOSITORY [facility] Cardiac Rehab [address] [place] [address] CR - History AND Physical MR#: [id number] Acct: [id number] Name: CESAR GEORGE Rep #: [id number] : 1960 58 From: Kee Osborn EQUIPMENT OPERATOR, FREIGHT ELEVATOR ERECTOR, BS PCP: Avery Fischer DO DOS: 07/06/18 CR - History AND Physical - General Arrival date:: 07/06/18 Arrival time:: 10:34 Date of Referral:: 05/25/18 Date of CR Evaluation:: 07/06/18 Referring Physician: DR. RHONDA ESCAMILLA Primary Diagnosis: CABG, NSTEMI - History [...] Advanced Directives - Advanced Directives Power of Map Mounter: No Living Will: No Advance Directives Information [...] = Denies (Slash). 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 Mat Ring here at [facility] for NSTEMI and subsequently was transfered to [facility] for CABG. Patient is not pleased with provider/[facility] and would like to resume his care with Dr. Ring as following senior sales administrator. - Vital Signs Temperature: 98.7 F Respiratory [...] 07/06/18 1100 <Electronically signed by Kee Osborn EQUIPMENT OPERATOR, FREIGHT ELEVATOR ERECTOR, BS> Date Kee Osborn EQUIPMENT OPERATOR, FREIGHT ELEVATOR ERECTOR, BS Outcome assessment reviewed. Exercise plan approved as documented. Treatment plan and goals support patient needs/abilities. Continue with current plan. I certify the patient demonstrates improvement and remains willing and capable of participation. the patient continues to benefit from cardiac rehab services/training. The patient may continue at current intensity, endurance and modality and progress per protocol. 07/06/182020 <Electronically signed by Mat Ring MD> Cosigner Signature: Date Mat Ring MD CC: Signed BASIC METABOLIC PANL Collected: 06/28/2018 Status: F Source: [place] 10:34 AM [facility] REPOSITORY TYPE CODE TESTS RESULT OUT OF REFERENCE UNITS RANGE LAB GLU 74-99 mg/dL High Glucose 101 Result Comment: The [place] Diabetes Association (ADA) provides guidance for cutoff [...] Standards of Medical Care in Diabetes 2016, [place] Diabetes Association. Diabetes Care. 2016.39(Suppl 1). LAB [...] actual GFR. Performed By: #### BMP #### [facility] [address] [place] [address] PROGRESS Observed: 06/23/2018 Status: COMPLETED Source: [place] 10:50 AM [facility] REPOSITORY HNO ID: [id number] Author: Catracho LernerRn) Service: (none) Author Type: Registered Nurse Type: Progress Notes Filed: 06/23/2018 10:55 AM Note Text: PRIMARY CARE COORDINATION FOLLOW-UP NOTE Provider Action/FYI Spk to Pt notified prescription for Lasix sent to [facility] in [place] as requested. Patient identified by name and date of . YES Spoke to patient Signature Jesusita Hayden RN June 23, 2018 PROGRESS Observed: 06/23/2018 Status: COMPLETED Source: [place] 10:03 AM [facility] REPOSITORY HNO ID: [id number] Author: Avery Escalante Service: (none) Author Type: Physician Type: Progress Notes Filed: 06/23/2018 10:55 AM Note Text: The following approved medication requests have been transmitted electronically. Signed Prescriptions Disp Refills furosemide (LASIX) 20 mg tablet 30 tablet 3 Sig: Take 1 tablet by mouth once daily. LESLIE: No Avery Escalante DO PROGRESS Observed: 06/23/2018 Status: COMPLETED Source: [place] 9:43 AM [facility] REPOSITORY HNO ID: [id number] Author: Catracho LernerRn) Service: (none) Author Type: Registered Nurse Type: Progress Notes Filed: 06/23/2018 10:55 AM Note Text: PRIMARY CARE COORDINATION FOLLOW-UP NOTE Provider Action/FYI Spk with Pt notified per Dr. Escalante to please take 2nd dose of 20 mg of Lasix for 3 days (take by 2 pm). Let Musical String Maker know if any further weight or edema concerns. Pt verbalized understanding. 2. Pt noted he is out of Lasix, requested for refill Please be sent to [facility] in [place]. Patient identified by name and date of . YES Spoke to patient Signature Jesusita Hayden RN June 23, 2018 PROGRESS Observed: 06/23/2018 Status: COMPLETED Source: [place] 6:44 AM [facility] REPOSITORY HNO ID: [id number] Author: Avery Escalante Service: (none) Author Type: Physician Type: Progress Notes Filed: 06/23/2018 10:55 AM Note Text: Please have him take 2nd dose of 20 mg of Lasix for 3 days (take by 2 pm). Let Musical String Maker know if any further weight or edema concerns /Avery Escalante, DO PROGRESS Observed: 06/22/2018 Status: COMPLETED Source: [place] 5:13 PM [facility] REPOSITORY HNO ID: [id number] Author: Catracho Mc (Rn) Service: (none) Author [...] rehab printed and left for Pt to cigar packer and picker at front office java developer, Pt noted plans to have Cardiac rehab at [facility] Patient identified for Primary Care Coordination from: [...] Risk (since 03/24/2018) None Jesusita Hayden RN [facility] Observed: 06/22/2018 Status: COMPLETED Source: [place] 12:00 AM [facility] REPOSITORY Patient Outreach (FAMPWS) CESAR GEORGE JR. ([id number]) 1960 M Date Time Provider Department 06/22/18 [...] rehab printed and left for Pt to cigar packer and picker at front office java developer, Pt noted plans to have Cardiac rehab at [facility] Patient identified for Primary Care Coordination from: [...] 3 days (take by 2 pm). Let Musical String Maker know if any further weight or edema concerns /DO Jesusita Joshi RN 06/23/2018 10:55 AM Signed PRIMARY CARE COORDINATION FOLLOW-UP NOTE Provider Action/FYI Spk with Pt notified per Dr. Escalante to please take 2nd dose of 20 mg of Lasix for 3 days (take by 2 pm). Let Musical String Maker know if any further weight or edema concerns. Pt verbalized understanding. 2. Pt noted he is out of Lasix, requested for refill Please be sent to [facility] in [place]. Patient identified by name and date of [...] Pt notified prescription for Lasix sent to [facility] in [place] as requested. 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 Coronary artery disease involving nanwalek ricardo*INVALID FOR* Priority: A More... C. difficile [...] 06/23/18 PROGRESS Observed: 06/16/2018 Status: COMPLETED Source: [place] 9:52 AM [facility] REPOSITORY HNO ID: [id number] Author: Catracho Mc (Rn) Service: (none) Author [...] 2018 PROGRESS Observed: 06/15/2018 Status: COMPLETED Source: [place] 2:21 PM [facility] REPOSITORY HNO ID: [id number] Author: Catracho LernerRn) Service: (none) Author Type: [...] 2018 PROGRESS Observed: 06/15/2018 Status: COMPLETED Source: [place] 1:34 PM [facility] [place] REPOSITORY HNO ID: [id number] Author: Zoë Alonzo (Ad) Shannon Service: (none) Author Type: Nurse Practitioner Type: Progress Notes Filed: 06/15/2018 3:38 PM Note Text: This note was created using [employer]. Subjective Cesar George Jr. is a 58 year old [...] - ICD9: 909.3, ICD10: T81.89XS As above Zoë Stanton APRN.AD CNOV Observed: 06/15/2018 Status: COMPLETED Source: [place] 1:20 PM [facility] REPOSITORY Office Visit (FAMPWS) CESAR GEORGE JR. ([id number]) 1960 M Date Time Provider Department 06/15/18 1:20 PM ZOË STANTON (AD) FAMPWS During your visit today, we recorded the following information about you: Pulse Respiration Blood pressure Weight 88/minute 16/minute 110/64 91.6 kg Zoë Stanton APRN.CNP 06/15/2018 3:38 PM Signed This note was created using [employer]. Subjective Cesar George Jr. is a 58 year old [...] - ICD9: 909.3, ICD10: T81.89XS As above Zoë Stanton APRN.BILINGUAL KINDERGARTEN TEACHER Referring Provider: SELF [200] Allergies As of [...] [E53.8] INVALID FOR* PAD (peripheral artery disease) ([facility]) [I73.9] INVALID FOR* Priority: C Small vessel disease ([facility]) [I99.9] INVALID FOR* DM (diabetes mellitus), type 2 with neurologica*INVALID FOR* Priority: E More... Diabetes mellitus with background retinopathy (*INVALID FOR*07/13/2016 Type 1 diabetes mellitus with mild nonprolifera*INVALID FOR*06/08/2016 Other vitreous opacities - Both Eyes [H43.399] INVALID FOR* Lens replaced by other means - Both Eyes [Z96.1]INVALID FOR*07/13/2016 CVA (cerebral vascular accident) ([facility]) [I63.9] INVALID FOR* Type 2 diabetes, controlled, [...] Priority: C More... Coronary artery disease involving nanwalek ricardo*INVALID FOR* Priority: A More... C. difficile colitis [A04.72] INVALID FOR* Priority: I More... More... Nicotine use disorder, F17.2 [F17.200] INVALID FOR* Priority: B More... Hypotension [I95.9] INVALID FOR*04/14/2018 Priority: C More... Cardiac insufficiency ([facility]) [I50.9] INVALID FOR*04/14/2018 Priority: C More... Atelectasis [...] is not on file. Encounter Status:Closed by ZOË STANTON CNP on 06/15/18 ADTOALEXANDER Observed: 06/15/2018 Status: COMPLETED Source: [place] 12:00 AM [facility] REPOSITORY Patient Outreach (FAMPWS) CESAR GEORGE JR. 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 Diabetes mellitus with background retinopathy (*INVALID FOR*07/13/2016 Type 1 diabetes mellitus with mild nonprolifera*INVALID FOR*06/08/2016 Other vitreous opacities - Both Eyes [H43.399] INVALID FOR* Lens replaced by other means - Both Eyes [Z96.1]INVALID FOR*07/13/2016 CVA (cerebral vascular accident) ([facility]) [I63.9] INVALID FOR* Type 2 diabetes, controlled, [...] Priority: C More... Coronary artery disease involving nanwalek ricardo*INVALID FOR* Priority: A More... C. difficile [...] 06/16/18 CNNURSE Observed: 06/14/2018 Status: COMPLETED Source: [place] 1:30 PM [facility] REPOSITORY [facility] CESAR GEORGE JR. ([id number]) 1960 M Date Time Provider Department 06/14/18 1:[address] NURSE ROJAS During your visit today, we recorded the following information about you: Ernestina Shahid LPN 06/14/2018 1:31 PM Signed Patient presents for B-12 injection. Denies any problems at this time. Patient instructed on any SE of medication, verbalized understanding and agreed to proceed with treatment. Tolerated injection well. Ernestina Shahid LPN Referring Provider: AVERY ESCALANTE [[id number]] Allergies As of Date: 06/14/2018 Noted Allergy Reaction LIPITOR (ATORVASTATIN CALCIUM) 01/07/2015 15 - Contraindication- Medical Olsen* Comments: Elevated LFTs and elevated CK level METFORMIN 03/01/2013 6 - Diarrhea Date Reviewed: 05/25/2018 Reviewed by: Rhonda Escamilla - Fully Assessed Reason for Visit: [...] [E53.8] INVALID FOR* PAD (peripheral artery disease) ([facility]) [I73.9] INVALID FOR* Priority: C Small vessel disease ([facility]) [I99.9] INVALID FOR* DM (diabetes mellitus), type 2 with neurologica*INVALID FOR* Priority: E More... Diabetes mellitus with background retinopathy (*INVALID FOR*07/13/2016 Type 1 diabetes mellitus with mild nonprolifera*INVALID FOR*06/08/2016 Other vitreous opacities - Both Eyes [H43.399] INVALID FOR* Lens replaced by other means - Both Eyes [Z96.1]INVALID FOR*07/13/2016 CVA (cerebral vascular accident) ([facility]) [I63.9] INVALID FOR* Type 2 diabetes, controlled, [...] Priority: C More... Coronary artery disease involving nanwalek ricardo*INVALID FOR* Priority: A More... C. difficile [...] 06/14/18 PROGRESS Observed: 06/14/2018 Status: COMPLETED Source: [place] 1:27 PM [facility] REPOSITORY O ID: [id number] Author: Ernestina Shahid LPN Service: (none) Author Type: (none) Type: Progress Notes Filed: 06/14/2018 1:31 PM Note Text: Patient presents for B-12 injection. Denies any problems at this time. Patient instructed on any SE of medication, verbalized understanding and agreed to proceed with treatment. Tolerated injection well. Ernestina Shahid COREY PROGRESS Observed: 06/13/2018 Status: COMPLETED Source: [place] 4:59 PM [facility] REPOSITORY HNO ID: [id number] Author: Catracho Mc (Rn) Service: (none) Author [...] instructed to hold on lifting and call Musical String Maker for release to Cardiac Rehab. Pt verbalized understanding. 4. Appt scheduled with José Miguel Stanton 06/15/18, Echo previously scheduled for 06/15/18 Patient identified by name and date of . YES Spoke to patient Signature Jesusita Hayden RN June 13, 2018 CNPTOUTREACH Observed: 06/13/2018 Status: COMPLETED Source: [place] 12:00 AM [facility] REPOSITORY Patient Outreach (FAMPWS) CESAR GEORGE JR. ([id number]) 1960 M Date Time Provider Department 06/13/18 CATRACHO LernerRN) FAMPWS During your visit today, we recorded the following information about you: Jesusita Hayden RN 06/15/2018 2:33 PM Signed PRIMARY CARE COORDINATION FOLLOW-UP NOTE Provider Action/FYI 1. Spk with Pt who reports BS a little higher after eating waffles, took Humalog 15 units BS dropped his BS to 37, treated, BS returned to 238, then 145. Reviewed F Hypoglycemia protocol. Instructed to carry juice, hard [...] instructed to hold on lifting and call Musical String Maker for release to Cardiac Rehab. 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 Coronary artery disease involving nanwalek ricardo*INVALID FOR* Priority: A More... C. difficile [...] AND DIFFERENTIAL Collected: 06/07/2018 Status: F Source: [place] 10:42 AM [facility] REPOSITORY TYPE CODE TESTS RESULT [...] k/uL Abs Lymph 1.07 LAB AMONO % Mineral% 12.2 LAB AAMONO <0.87 k/uL Abs Mineral High 0.99 LAB AEOS % Eosin% 1.2 LAB AAEOS <0.46 k/uL Abs Eosin 0.10 LAB ABASO % Baso% 0.5 LAB AABASO <0.11 k/uL Abs Baso 0.04 LAB AUNRBC 0 /100 WBC NRBCs 0.0 LAB ABNRBC <0.01 k/uL Absolute nRBC <0.01 LAB DTYP DTYPE Auto Diff Performed By: #### CBCDIF #### [facility] [address] [place] [address] BASIC METABOLIC PANL Collected: 06/07/2018 Status: F Source: [place] 10:42 AM [facility] REPOSITORY TYPE CODE TESTS RESULT OUT OF REFERENCE UNITS RANGE LAB GLU 74-99 mg/dL High Glucose 126 Result Comment: The [place] Diabetes Association (ADA) provides guidance for cutoff [...] Standards of Medical Care in Diabetes 2016, [place] Diabetes Association. Diabetes Care. 2016.39(Suppl 1). LAB [...] actual GFR. Performed By: #### BMP #### [facility] [address] [place], [place] [address] PROGRESS Observed: 06/01/2018 Status: COMPLETED Source: [place] 2:33 PM [facility] REPOSITORY [facility] ID: [id number] Author: Catracho Mc (Rn) Service: (none) Author Type: Registered Nurse Type: Progress Notes Filed: 06/06/2018 11:29 AM Note Text: PRIMARY CARE COORDINATION FOLLOW-UP NOTE Provider Action/FYI Call to Pt left a for a status update. Patient identified by name and date of . YES Signature Jesusita Hayden RN June 01, 2018 CNPTOUTREACH Observed: 06/01/2018 Status: COMPLETED Source: [place] 12:00 AM [facility] REPOSITORY Patient Outreach (FAMPWS) CESAR GEORGE JR. ([id number]) 1960 M Date Time Provider Department 06/01/18 [facility] During your visit today, we recorded the following information about you: Jesusita Hayden RN 06/06/2018 11:29 AM Signed PRIMARY CARE COORDINATION FOLLOW-UP NOTE Provider Action/FYI Call to Pt left a for a status update. Patient identified by name and date of . YES Signature Jesusita Hayden RN June 01, 2018 Allergies As of Date: 06/01/2018 Noted Allergy Reaction LIPITOR (ATORVASTATIN CALCIUM) 01/07/2015 15 - Contraindication- Medical Olsen* Comments: Elevated LFTs and elevated CK level METFORMIN 03/01/2013 6 - Diarrhea Date Reviewed: 05/25/2018 Reviewed by: Rhonda Escamilla - Fully Assessed Reason for Visit: Telegraph Inspector Chronic Care [0178] Prescriptions as of 06/01/2018 Sig: SANTYL 250 [...] [E53.8] INVALID FOR* PAD (peripheral artery disease) ([facility]) [I73.9] INVALID FOR* Priority: C Small vessel [...] Priority: C More... Coronary artery disease involving nanwalek ricardo*INVALID FOR* Priority: A More... C. difficile [...] skin [L08.9, B*INVALID FOR* Encounter Status:Closed by CATRACHOJESUSITA Neri on 06/06/18 CNCO Observed: 05/30/2018 Status: COMPLETED Source: [place] 12:00 AM [facility] REPOSITORY Letter Text [facility] [place] [address] Dept: [phone] Dept Rhonda Escamilla MD May 30, 2018 Cesar George Jr. [address] [place] [id number] Dear , Our office has tried to contact you but have been unsuccessful. Please contact our office regarding scheduling an Echocardiogram. Please notify us of any change of your phone number or address. Sincerely, Rhonda Escamilla M.D. (Signed electronically to expedite mailing) PROGRESS Observed: 05/25/2018 Status: COMPLETED Source: [place] 1:51 PM [facility] REPOSITORY [facility] ID: [id number] Author: Rhonda Escamilla Service: (none) Author Type: Physician Type: Progress Notes Filed: 05/25/2018 2:04 PM Note Text: PRIMARY CARE PHYSICIAN: Avery Escalante DO [address] [place] [address] REFERRING PHYSICIAN: SELF CHIEF COMPLAINT: CAD s/p CABG HISTORY OF PRESENT ILLNESS: Mr. George is a 58 year old male with a history of hypertension, hyperlipidemia, diabetes, prior CVA, peripheral arterial disease who presents to cardiology clinic to establish care after recent hospitalization for non-ST elevation CT status post 3 vessel bypass surgery in March 2018. Patient presented to [facility] in March 2016 with complaints of exertional dyspnea, fatigue, diarrhea and mild chest pain. He was found to have elevated troponins consistent with a non-ST elevation CT. In addition, he was found be C. difficile positive. He was started on optimal medical therapy for his non-ST elevation CT and was diuresed adequately. He subsequently underwent cardiac catheterization revealing three-vessel coronary disease. He was transferred to [facility] and underwent three-vessel bypass surgery in April [...] managed by the wound care center in [place]. PAST MEDICAL HISTORY Diagnosis Date - Cataract b/l, eye exam 05/29/13 - CTS (carpal tunnel syndrome) 10/2013 b/l, chronic, Dr. 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 Mazin Hinojosa Neuro, likely from DM and Vitamin B12 defic - Stroke ([facility]) 10/01/13 - Ulnar neuropathy 10/2013 b/l, chronic, [...] ONCE DAILY COMPOUNDED PRESCRIPTION Referral: wound clinic, [facility] rosuvastatin (CRESTOR) 10 mg tablet Take 1 [...] care after recent hospitalization for non-ST elevation CT status post 3 vessel bypass surgery in [...] to pursue closer to his home in [place] 2. Hypertension: Patient's blood pressure is well [...] disease: Continue therapy with ASA and crestor. Rhonda Escamilla MD CNOV Observed: 05/25/2018 Status: COMPLETED Source: [place] 1:00 PM CLINIC OTHER CAMPUS REPOSITORY Office Visit (AGCARDHWW) CESAR GEORGE JR. ([id number]) 1960 M Date Time Provider Department 05/25/18 1:00 PM RHONDA ESCAMILLA AGCARDHWW During your visit today, we [...] the health of your heart. Developed by [employer]. Published by [employer]. Copyright ?2014 [employer] and/or one of its subsidiaries. All rights reserved. Rhonda Escamilla MD 05/25/2018 2:04 PM Signed PRIMARY CARE PHYSICIAN: Avery Escalante DO [address] [place] [address] REFERRING PHYSICIAN: SELF CHIEF COMPLAINT: CAD s/p CABG HISTORY OF PRESENT ILLNESS: Mr. George is a 58 year old male with a history of hypertension, hyperlipidemia, diabetes, prior CVA, peripheral arterial disease who presents to cardiology clinic to establish care after recent hospitalization for non-ST elevation CT status post 3 vessel bypass surgery in March 2018. Patient presented to [facility] in March 2016 with complaints of exertional dyspnea, fatigue, diarrhea and mild chest pain. He was found to have elevated troponins consistent with a non-ST elevation CT. In addition, he was found be C. difficile positive. He was started on optimal medical therapy for his non-ST elevation CT and was diuresed adequately. He subsequently underwent cardiac catheterization revealing three-vessel coronary disease. He was transferred to [facility] and underwent three-vessel bypass surgery in April [...] managed by the wound care center in [place]. PAST MEDICAL HISTORY Diagnosis Date - Cataract b/l, eye exam 05/29/13 - CTS (carpal tunnel syndrome) 10/2013 b/l, chronic, Dr. 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 Mazin Hinojosa Neuro, likely from DM and Vitamin B12 defic - Stroke ([facility]) 10/01/13 - Ulnar neuropathy 10/2013 b/l, chronic, [...] ONCE DAILY COMPOUNDED PRESCRIPTION Referral: wound clinic, [facility] rosuvastatin (CRESTOR) 10 mg tablet Take 1 [...] care after recent hospitalization for non-ST elevation CT status post 3 vessel bypass surgery in [...] to pursue closer to his home in [place]. 2. Hypertension: Patient's blood pressure is well [...] disease: Continue therapy with ASA and crestor. Rhonda Escamilla MD Referring Provider: SELF [200] Allergies As of Date: 05/25/2018 Noted Allergy Reaction LIPITOR (ATORVASTATIN CALCIUM) 01/07/2015 15 - Contraindication- Medical Olsen* Comments: Elevated LFTs and elevated CK level METFORMIN 03/01/2013 6 - Diarrhea Date Reviewed: 05/25/2018 Reviewed by: Rhonda Escamilla - Fully Assessed Reason for Visit: New Patient Evaluation [154] Cmt: referred by Dr Zhu s/p CABG Reason For Visit History Recorded Primary Visit Diagnosis:Hx of CABG [Z95.1] Other Visit Diagnoses:Small vessel disease [I99.9] Mixed hyperlipidemia [E78.2] Coronary artery disease involving nanwalek coronary artery of nanwalek heart without angina pectoris [I25.10] NSTEMI (non-ST elevated myocardial infarction) (HCC) [I21.4] Order(s):amLODIPine (NORVASC) 5 mg tabletTake 1 tablet by mouth once daily.Disp: 90 tabletRfl: 3 lisinopril 2.5 mg tabletTake 1 tablet by mouth once daily.Disp: 90 tabletRfl: 3 BASIC METABOLIC PNL [SQBMP] Order #: [id number] FUTURE ECHO [[id number]] Order #: [id number]: 1 FUTURE CONSULT TO CARD REHAB PHASE II [] Order #: [id number]: 1 Prescriptions as of 05/25/2018 Sig: SANTYL [...] [E53.8] INVALID FOR* PAD (peripheral artery disease) ([facility]) [I73.9] INVALID FOR* Priority: C Small vessel disease ([facility]) [I99.9] INVALID FOR* DM (diabetes mellitus), type 2 with neurologica*INVALID FOR* Priority: E More... Diabetes mellitus with background retinopathy (*INVALID FOR*07/13/2016 Type 1 diabetes mellitus with mild nonprolifera*INVALID FOR*06/08/2016 Other vitreous opacities - Both Eyes [H43.399] INVALID FOR* Lens replaced by other means - Both Eyes [Z96.1]INVALID FOR*07/13/2016 CVA (cerebral vascular accident) ([facility]) [I63.9] INVALID FOR* Type 2 diabetes, controlled, [...] Priority: C More... Coronary artery disease involving nanwalek ricardo*INVALID FOR* Priority: A More... C. difficile [...] the health of your heart. Developed by [employer]. Published by [employer]. Copyright ?2014 [employer] and/or one of its subsidiaries. All rights reserved. Visit Notes: >> Rachelle Eddy Anuradha May 25, 2018 1:08 PM Status: Signed Patient referred by surgeon Dr Zhu s/p CABG. Patient has no cardiac complaints today. Rachelle Eddy [facility] Prescriptions ordered this encounter Disp Refills Start [...] on 05/25/2018 Disc: Course of therapy completed [id number]-[id number] oil (METANX* 90 c* 3 05/19/2018 05/25/2018 [...] and Disposition History Recorded Encounter Status:Closed by RHONDA ESCAMILLA on 05/25/18 WOUND CTR HISTORY Observed: 05/24/2018 Status: F Source: [facility]YSICAL 7:04 PM [facility] REPOSITORY [facility] [address] [place] [address] Wound Ctr History AND Physical 05/24/18 1325 MR#: [id number] Acct: [id number] Name: CESAR GEORGE Rep #: [id number] : 1960 58 From: Mary Kay Vance MD PCP: Avery Fischer, DO Status: REG RCR Y Location: WC [...] follow-up with his cardiothoracic surgeon at the [facility] tomorrow. Past Medical History Past Medical History: [...] Most likely severe diabetic neuropathy Workup [facility] Cerebrovascular disease (Chronic) Right thalamic stroke Surgical [...] Skin: Ulcer/ Wound Wound Measurements and Assessment - Nurse 1 - General Ulcer Measurement Start: 05/24/18 11:44 Freq: Status: Active Protocol: Activity Type Activity Date Activity User E-Sign Co-Sign Detail Recorded Client Recorded Date Recorded By Document 05/24/18 11:44 [id number] 05/24/18 11:59 Wound Center Nurse 1 [Ulcer Assessment] #10 LEFT LOWER MIDCLAVICULAR POST OP -Combined with other wound No -Current Size (cm) - Length 0.1 WC - Nurse 2 - General Ulcer CM Notes Start: 05/24/18 11:44 Freq: Status: Active Protocol: Activity Type Activity Date Activity User E-Sign Co-Sign Detail Recorded Client Recorded Date Recorded By Document 05/24/18 12:17 MW [id number] 05/24/18 12:31 MW Wound Center Nurse 2 [Procedure/Treatment] Musculoskeletal: No Muscle Wasting Neurological: Cranial nerves II-XII grossly intact Psych/Mental Status: Normal Affect Debridement Note Post-Debridement Measurements/Treatment WC - Nurse 2 - General Ulcer CM Notes Start: 05/24/18 11:44 Freq: Status: Active Protocol: Activity Type Activity Date Activity User E-Sign Co-Sign Detail Recorded Client Recorded Date Recorded By Document 05/24/18 12:17 MW [id number] 05/24/18 12:31 MW Wound Center Nurse 2 [...] or concerns. This note was generated with Strat[employer] software. It may contain incorrect words, spelling, and punctuation that were not noted in checking the note before signing. 05/24/18 1904 <Electronically signed by Mary Kay Vance MD> Date Mary Kay Vance MD CC: Signed Observed: 05/24/2018 Status: F Source: [facility] 12:25 PM [facility] REPOSITORY Comments: L LOWER MIDCLAVICULAR [...] 1 S (NF) indicates non-formulary drug at [facility]. Approval by Infectious Disease Specialist [...] 2 S (NF) indicates non-formulary drug at [facility]. Approval by Infectious Disease Specialist required before non-formulary drugs may be ordered and/or dispensed. * CLSI guidelines does not recommend testing of cephalosporins. This interpretation is deduced from Beta-lactam/penicillin results. Cult, Anaerobic No anaerobic bacteria isolated. Performed By: #### M100.1500 #### [facility] [address] [place], [address] PROGRESS Observed: 05/12/2018 Status: COMPLETED Source: [place] 7:01 AM [facility] REPOSITORY O ID: [id number] Author: Avery Escalante Service: (none) Author Type: Physician Type: Progress Notes Filed: 05/12/2018 7:11 AM Note Text: Patient presents with: Follow Up: 3 months HPI: Cesar Jayy George Jr. is a 58 year old male who presents to the office today for review of health conditions. Concerns today: About 4 weeks out from multivessel CABG surgery after presenting to [facility] for fatigue and left rib pain after baling hay, was found to have critical stenosis of LAD and several other arteries, was transported up to [facility] and had bypass surgery performed. He [...] and concerned for continued ulceration. Hasn't seen [facility] wound care recently. Asking for referral at [...] time. He does not check BP's generally. Cesar likes to exercise by walking. PAST MEDICAL HISTORY Diagnosis Date - Cataract b/l, eye exam 05/29/13 - CTS (carpal tunnel syndrome) 10/2013 b/l, chronic, Dr. Mazin Hinojosa EMG - Diabetic retinopathy of both eyes (HCC) eye exam 05/29/13 - DM (diabetes mellitus) (HCC) Diagnosed in 2004 - Mild atherosclerosis of both carotid arteries 05/2016 ICA b/l 20-39% - Polyneuropathy ([facility]) 10/2013 axon loss, Dr. Mazin Hinojosa Neuro, likely from DM and Vitamin B12 defic - Stroke ([facility]) 10/01/13 - Ulnar neuropathy 10/2013 b/l, chronic, [...] 10 days. COMPOUNDED PRESCRIPTION Referral: wound clinic, [facility] furosemide (LASIX) 20 mg tablet Take 1 [...] MG TABLET 9. 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 (HCC) - ICD9: 414.01, 411.1, ICD10: I25.110 - see above, f/u with CTS and senior sales administrator - ROSUVASTATIN 10 MG TABLET - METOPROLOL [...] agreed with the plan. Avery Escalante DO [address] [place] [address] CNOV Observed: 05/10/2018 Status: COMPLETED Source: [place] 12:20 PM [facility] REPOSITORY Office Visit (FAMPWS) CESAR GEORGE JR. ([id number]) 1960 M Date Time Provider Department 05/10/18 12:20 PM AVERY ESCALANTE During your visit today, we recorded the following information about you: Temperature Pulse Respiration Blood pressure 97.2 degrees 80/minute 16/minute 110/70 Weight 90.7 kg Avery Escalante DO 05/10/2018 1:14 PM Signed Limit 68 oz of water a day Avery Escalante DO 05/12/2018 7:11 AM Signed Patient presents with: Follow Up: 3 months HPI: Cesar George Jr. is a 58 year old male who presents to the office today for review of health conditions. Concerns today: About 4 weeks out from multivessel CABG surgery after presenting to [facility] for fatigue and left rib pain after baling hay, was found to have critical stenosis of LAD and several other arteries, was transported up to main [facility] and had bypass surgery performed. He is [...] and concerned for continued ulceration. Hasn't seen [facility] wound care recently. Asking for referral at [...] time. He does not check BP's generally. Cesar likes to exercise by walking. PAST MEDICAL HISTORY Diagnosis Date - Cataract b/l, eye exam 05/29/13 - CTS (carpal tunnel syndrome) 10/2013 b/l, chronic, Dr. 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 Mazin Hinojosa Neuro, likely from DM and Vitamin B12 defic - Stroke ([facility]) 10/01/13 - Ulnar neuropathy 10/2013 b/l, chronic, [...] 10 days. COMPOUNDED PRESCRIPTION Referral: wound clinic, [facility] furosemide (LASIX) 20 mg tablet Take 1 [...] MG TABLET 9. 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 (HCC) - ICD9: 414.01, 411.1, ICD10: I25.110 - see above, f/u with CTS and senior sales administrator - ROSUVASTATIN 10 MG TABLET - METOPROLOL [...] agreed with the plan. Avery Escalante DO [address] [place] [address] Referring Provider: AVERY ESCALANTE [[id number]] Allergies As of Date: 05/10/2018 Noted Allergy Reaction LIPITOR (ATORVASTATIN CALCIUM) 01/07/2015 15 - Contraindication- Medical Olsen* Comments: Elevated LFTs and elevated CK level METFORMIN 03/01/2013 6 - Diarrhea Date Reviewed: 05/10/2018 Reviewed by: Teodora Cochran LPN - Fully Assessed Reason for Visit: Follow Up [171] Cmt: 3 months Primary Visit Diagnosis:Localized bacterial infection of skin [L08.9, B96.89] Other Visit Diagnoses:C. difficile colitis [A04.72] Skin wound from surgical incision [T14.8XXA] Hx of CABG [Z95.1] History of sternectomy [Z98.890] Decubitus ulcer of right heel, unspecified ulcer stage [L89.619] Weight gain [R63.5] Post-operative pain [G89.18] 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 (HCC) [I25.110] NSTEMI (non-ST elevated myocardial infarction) (HCC) [I21.4] DM (diabetes mellitus), type 2 with neurological complications (HCC) [E11.49] Order(s):cephALEXin (KEFLEX) 500 mg capsuleTake 1 capsule by mouth four times daily for 10 days.Disp: 40 capsuleRfl: 0 COMPOUNDED PRESCRIPTIONReferral: [facility] 1 EachRfl: 0 furosemide (LASIX) 20 mg [...] 8.6 MG-DOCUSATE SODIUM 50 MG TABLET >> Teodora Cochran LPN 05/10/2018 12:34 PM >> TEODORA COCHRAN LPN TueMay 10, 2018 12:34 PM [...] [E53.8] INVALID FOR* PAD (peripheral artery disease) ([facility]) [I73.9] INVALID FOR* Priority: C Small vessel disease ([facility]) [I99.9] INVALID FOR* DM (diabetes mellitus), type 2 with neurologica*INVALID FOR* Priority: E More... Diabetes mellitus with background retinopathy (*INVALID FOR*07/13/2016 Type 1 diabetes mellitus with mild nonprolifera*INVALID FOR*06/08/2016 Other vitreous opacities - Both Eyes [H43.399] INVALID FOR* Lens replaced by other means - Both Eyes [Z96.1]INVALID FOR*07/13/2016 CVA (cerebral vascular accident) ([facility]) [I63.9] INVALID FOR* Type 2 diabetes, controlled, [...] Priority: C More... Coronary artery disease involving nanwalek ricardo*INVALID FOR* Priority: A More... C. difficile [...] Class: Print RX Sig: Referral: wound clinic, [facility] FUROSEMIDE 20 MG TABLET 7 ta* 0 [...] 05/12/18 CNOV Observed: 05/08/2018 Status: COMPLETED Source: [place] 9:15 AM [facility] REPOSITORY Office Visit (VASSWS) CESAR GEORGE JR. ([id number]) 1960 M Date Time Provider Department 05/08/18 9:15 AM LISA REAGAN During your visit today, we recorded the following information about you: Pulse Blood pressure 85/minute 120/80 Lisa Reagan DO 05/15/2018 8:10 AM Signed VASCULAR [...] EMG - Diabetic retinopathy of both eyes ([facility]) eye exam 05/29/13 - DM (diabetes mellitus) ([facility]) Diagnosed in 2004 - Mild atherosclerosis of both carotid arteries 05/2016 ICA b/l 20-39% - Polyneuropathy ([facility]) 10/2013 axon loss, Dr. Mazin Hinojosa Neuro, likely from DM and Vitamin B12 defic - Stroke ([facility]) 10/01/13 - Ulnar neuropathy 10/2013 b/l, chronic, [...] 6 months or sooner with concerns SIGNATURE: Lisa Reagan DO PATIENT NAME: Cesar George Jr. DATE: May 08, 2018 TIME: 8:25 AM Referring Provider: AVERY ESCALANTE [[id number]] Allergies As of Date: 05/08/2018 Noted Allergy Reaction LIPITOR (ATORVASTATIN CALCIUM) 01/07/2015 15 - Contraindication- Medical Olsen* Comments: Elevated LFTs and elevated CK level METFORMIN 03/01/2013 6 - Diarrhea Date Reviewed: 05/08/2018 Reviewed by: Terrence Kendrick RN - Fully Assessed Reason for Visit: Established Patient [175] Primary Visit Diagnosis:PAD (peripheral artery disease) ([facility]) [I73.9] Order(s):PVR [facility]G [facility] [[id number]] Order #: [id number] FUTURE Prescriptions as of 05/08/2018 Sig: SILVER [...] [E53.8] INVALID FOR* PAD (peripheral artery disease) ([facility]) [I73.9] INVALID FOR* Priority: C Small vessel disease ([facility]) [I99.9] INVALID FOR* DM (diabetes mellitus), type 2 with neurologica*INVALID FOR* Priority: E More... Diabetes mellitus with background retinopathy (*INVALID FOR*07/13/2016 Type 1 diabetes mellitus with mild nonprolifera*INVALID FOR*06/08/2016 Other vitreous opacities - Both Eyes [H43.399] INVALID FOR* Lens replaced by other means - Both Eyes [Z96.1]INVALID FOR*07/13/2016 CVA (cerebral vascular accident) ([facility]) [I63.9] INVALID FOR* Type 2 diabetes, controlled, [...] Priority: C More... Coronary artery disease involving [place]k ricardo*INVALID FOR* Priority: A More... C. difficile [...] [Z02.9] INVALID FOR* More... Encounter Status:Closed by LISA REAGAN DO on 05/15/18 PROGRESS Observed: 05/08/2018 Status: COMPLETED Source: [place] 8:25 AM [facility] REPOSITORY O ID: [id number] Author: Lisa Reagan Service: (none) Author Type: Physician Type: [...] EMG - Diabetic retinopathy of both eyes ([facility]) eye exam 05/29/13 - DM (diabetes mellitus) ([facility]) Diagnosed in 2004 - Mild atherosclerosis of both carotid arteries 05/2016 ICA b/l 20-39% - Polyneuropathy ([facility]) 10/2013 axon loss, Dr. Mazin Hinojosa Neuro, likely from DM and Vitamin B12 defic - Stroke ([facility]) 10/01/13 - Ulnar neuropathy 10/2013 b/l, chronic, [...] L Escalante 1,000 mcg at 03/20/18 1034 ALLERGIES [...] 6 months or sooner with concerns SIGNATURE: Lisa Reagan DO PATIENT NAME: Cesar George Jr. DATE: May 08, 2018 TIME: 8:25 AM C DIFFICILE PCR Collected: 05/08/2018 Status: F Source: [place] 7:05 AM [facility] REPOSITORY TYPE CODE TESTS RESULT [...] specimen submission. Performed By: #### CDPCR #### [facility] [address] [place], [place] [address] C. DIFF TOXIN BY Collected: 05/08/2018 Status: F Source: [place] [facility] 7:05 AM [facility] ORDER ONLY REPOSITORY TYPE CODE TESTS RESULT OUT OF REFERENCE UNITS RANGE LAB CDEIAT C. difficile toxin not detected C.diff by EIA. Toxin EIA Toxin EIA is less sensitive than cell cytotoxin and PCR assays. Clinical correlation of PCR positive/toxin EIA negative results is required to distinguish C. difficile colonization from disease. Performed By: #### CDEIA #### [facility] [address] [place], [place] [address] PROGRESS Observed: 05/05/2018 Status: COMPLETED Source: [place] 2:55 PM [facility] [place] REPOSITORY HNO ID: [id number] Author: Zoë Alonzo (Kiln Hand) Shannon Service: (none) Author Type: Nurse Practitioner Type: Progress Notes Filed: 05/08/2018 12:09 PM Note Text: Noted Zoë Stanton APRN.CNP PROGRESS Observed: 05/05/2018 Status: COMPLETED Source: [place] 11:06 AM [facility] REPOSITORY HNO ID: [id number] Author: Catracho Mc (Rn) Service: (none) Author [...] 5. Consult dietitian- Discussed sooner appt in [place] with Nieves Salter, provided phone number for scheduling [phone], Pt noted would depend on family's schedule, noted he will call for an earlier appt based on and daughter's schedule (Radha is going to back to work, and daughter is going to [place]) 6. Pt is taking stool sample for [...] PM JAZLYN Observed: 05/05/2018 Status: COMPLETED Source: [place] 12:00 AM [facility] REPOSITORY Patient Outreach (FAMPWS) CESAR GEORGE JR. ([id number]) 1960 M Date Time Provider Department 05/05/18 [facility] (RN) FAMPWS During your visit [...] 5. Consult dietitian- Discussed sooner appt in [place] with Nievesmaria l Adameon, provided phone number for scheduling [phone], Pt noted would depend on family's schedule, noted he will call for an earlier appt based on and daughter's schedule (Radha is going to back to work, and daughter is going to [place]) 6. Pt is taking stool sample for c-diff today prior to Vascular testing for Dr. Reagna 05/05/18 7. PCP Appt 05/10/18, Cardiology Appt [...] 05, 2018 May 05, 2018 1:01 PM Zoë Stanton APRN.CNP 05/08/2018 12:09 PM Signed Noted Zoë Stanton APRN.CNP Allergies As of Date: 05/05/2018 Noted Allergy Reaction LIPITOR (ATORVASTATIN CALCIUM) 01/07/2015 15 - Contraindication- Medical Olsen* Comments: Elevated LFTs and elevated CK level METFORMIN 03/01/2013 6 - Diarrhea Date Reviewed: 05/03/2018 Reviewed by: Brenna Steven Blocking Machine Operator Second - Fully Assessed Reason for Visit: [facility] Follow Up [9626] Cmt: Status update Reason For Visit History [...] [E53.8] INVALID FOR* PAD (peripheral artery disease) ([facility]) [I73.9] INVALID FOR* Priority: C Small vessel disease ([facility]) [I99.9] INVALID FOR* DM (diabetes mellitus), type 2 with neurologica*INVALID FOR* Priority: E More... Diabetes mellitus with background retinopathy (*INVALID FOR*07/13/2016 Type 1 diabetes mellitus with mild nonprolifera*INVALID FOR*06/08/2016 Other vitreous opacities - Both Eyes [H43.399] INVALID FOR* Lens replaced by other means - Both Eyes [Z96.1]INVALID FOR*07/13/2016 CVA (cerebral vascular accident) ([facility]) [I63.9] INVALID FOR* Type 2 diabetes, controlled, [...] Priority: C More... Coronary artery disease involving nanwalek ricardo*INVALID FOR* Priority: A More... C. difficile [...] 05/08/18 PROGRESS Observed: 05/03/2018 Status: COMPLETED Source: [place] 11:44 AM [facility] [place] REPOSITORY [facility] ID: [id number] Author: Catracho Mc (Rn) Service: (none) Author Type: Registered Nurse Type: Progress Notes Filed: 05/03/2018 5:51 PM Note Text: PRIMARY CARE COORDINATION IN OFFICE VISIT WITH PCP Patient has been identified by name and date of . PCP Assessment/Plan: Reviewed PCP plan with patient using Teach Back ASSESSMENT/PLAN: 1. 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 2. NSTEMI (non-ST elevated myocardial infarction) (HCC) [...] 2018 PROGRESS Observed: 05/03/2018 Status: COMPLETED Source: [place] 11:42 AM [facility] [place] REPOSITORY HNO ID: [id number] Author: Zoë Alonzo (Ad) Shannon Service: (none) Author Type: Nurse Practitioner Type: Progress Notes Filed: 05/04/2018 7:57 AM Note Text: HPI/CC: Cesar George Jr. is a 58 year old [...] discussed during last visit. Continues pain medication AGUSTO Mc RN insurance healthcare representative and patient SO in room during encounter. [...] ectopy ASSESSMENT/PLAN: 1. 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 (HCC) - ICD9: 414.01, 411.1, ICD10: I25.110 (primary diagnosis) - PVR ANK PRESS [facility]- per vascular request in [facility] - CONSULT TO NUTRITION THERAPY- per patient [...] office on Tuesday with update on symptoms Zoë Stanton APRN.CNP CNOV Observed: 05/03/2018 Status: COMPLETED Source: [place] 10:40 AM [facility] REPOSITORY Office Visit (FAMPWS) CESAR GEORGE JR. ([id number]) 1960 M Date Time Provider Department 05/03/18 10:40 AM [facility] ST[facility] During your visit today, we recorded the following information about you: Temperature Pulse Respiration Blood pressure 98.1 degrees 94/minute 16/minute 120/90 Weight 87.1 kg Zoë Stanton APRN.CNP 05/03/2018 11:37 AM Signed Continue activity restriction Apply ointment to left incision site as ordered Recommend frequent rest periods Consult dietitian Schedule PVRs for Dr. Reagan Complete stool sample for c-diff Follow up with PCP and cardiothoracic surgery as scheduled Call office on Tuesday with update on symptoms Zoë Stanton APRN.CNP 05/04/2018 7:57 AM Signed HPI/CC: Cesar Warrener Josh is a 58 year old male who [...] visit. Continues pain medication PRN Jesusita ALCARAZ insurance healthcare representative and patient SO in room during encounter. [...] ectopy ASSESSMENT/PLAN: 1. 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 (HCC) - ICD9: 414.01, 411.1, ICD10: I25.110 (primary diagnosis) - PVR ANK PRESS [facility]- per vascular request in [facility] - CONSULT TO NUTRITION THERAPY- per patient request - continue current medications 2. NSTEMI (non-ST elevated myocardial infarction) ([facility]) - ICD9: 410.70, ICD10: I21.4 - as [...] office on Tuesday with update on symptoms Zoë Stanton APRN.BILINGUAL KINDERGARTEN TEACHER Referring Provider: SELF [[id number]] Allergies As of Date: 05/03/2018 Noted Allergy Reaction LIPITOR (ATORVASTATIN CALCIUM) 01/07/2015 15 - Contraindication- Medical Olsen* Comments: Elevated LFTs and elevated CK level METFORMIN 03/01/2013 6 - Diarrhea Date Reviewed: 05/03/2018 Reviewed by: Brenna Steven Blocking Machine Operator Second - Fully Assessed Reason for Visit: Dry cough [Other] Cmt: Productive today-took cough syrup and takes OTC cetrizine post nasal drainage Primary Visit Diagnosis: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 ([facility]) [I25.110] Other Visit Diagnoses:NSTEMI (non-ST elevated myocardial infarction) ([facility]) [I21.4] Anemia, unspecified type [D64.9] Problem involving surgical incision [T81.89XA] Order(s):silver sulfADIAZINE (SSD) 1 % creamApply 1 application to affected area once daily.Disp: 50 gRfl: 0 PVR ANK PRESS [facility] [[id number]] Order #: [id number] FUTURE CONSULT TO NUTRITION THERAPY [9020] Order #: [id number]: 1 CBC + DIFF [SQCBCDIF] Order #: [id number] FUTURE Prescriptions as of 05/03/2018 Sig: ROSUVASTATIN [...] [E53.8] INVALID FOR* PAD (peripheral artery disease) ([facility]) [I73.9] INVALID FOR* Priority: C Small vessel disease ([facility]) [I99.9] INVALID FOR* DM (diabetes mellitus), type 2 with neurologica*INVALID FOR* Priority: E More... Diabetes mellitus with background retinopathy (*INVALID FOR*07/13/2016 Type 1 diabetes mellitus with mild nonprolifera*INVALID FOR*06/08/2016 Other vitreous opacities - Both Eyes [H43.399] INVALID FOR* Lens replaced by other means - Both Eyes [Z96.1]INVALID FOR*07/13/2016 CVA (cerebral vascular accident) ([facility]) [I63.9] INVALID FOR* Type 2 diabetes, controlled, [...] Priority: C More... Coronary artery disease involving nanwalek ricardo*INVALID FOR* Priority: A More... C. difficile [...] is not on file. Encounter Status:Closed by ZOË STANTON CNP on 05/04/18 PROGRESS Observed: 05/03/2018 Status: COMPLETED Source: [place] 10:23 AM [facility] REPOSITORY HNO ID: [id number] Author: Zoë Alonzo (Ad) Shannon Service: (none) Author Type: Nurse Practitioner Type: Progress Notes Filed: 05/03/2018 11:12 AM Note Text: Noted Zoë Stanton APRN.BILINGUAL KINDERGARTEN TEACHER PROGRESS Observed: 05/03/2018 Status: COMPLETED Source: [place] 9:27 AM [facility] REPOSITORY HNO ID: [id number] Author: Catracho Mc (Rn) Service: (none) Author Type: Registered Nurse Type: Progress Notes Filed: 05/03/2018 11:12 AM Note Text: PRIMARY CARE COORDINATION FOLLOW-UP NOTE Provider Action/FYI 1. Call to Pt, Spk with Radha who noted she spk with Nurse from [facility] Cardiovascular Nurse 05/02/18 and Pt declined need for ER visit, states after Pt rested he felt better and had decreased coughing, denies current CP or Sob, has right ankle swelling denies swelling on left foot / leg. Denies other unusual symptoms 2. Pt is keeping Appt 05/03/18 with José Miguel Stanton [facility]. 3. Pt would like an order consult to [facility] Dietitian Patient identified by name and date of . YES Spoke to spouse Signature Jesusita Hayden RN May 03, 2018 [facility] Observed: 05/03/2018 Status: COMPLETED Source: [place] 12:00 AM [facility] REPOSITORY Patient Outreach (FAMPWS) CESAR GEORGE JR. ([id number]) 1960 Date Time Provider Department 05/03/18 [facility] (RN) FAMPWS During your visit today, we recorded the following information about you: Jesusita Hayden RN 05/03/2018 11:12 AM Signed PRIMARY CARE COORDINATION FOLLOW-UP NOTE Provider Action/FYI 1. Call to Pt, Spk with Radha who noted she spk with Nurse from [facility] Cardiovascular Nurse 05/02/18 and Pt declined need for ER visit, states after Pt rested he felt better and had decreased coughing, denies current CP or Sob, has right ankle swelling denies swelling on left foot / leg. Denies other unusual symptoms 2. Pt is keeping Appt 05/03/18 with José Miguel Stanton CNP [facility]. 3. Pt would like an order consult to [facility] Dietitian Patient identified by name and date of . YES Spoke to spouse Signature Jesusita Hayden RN May 03, 2018 Zoë Stanton APRN.CNP 05/03/2018 11:12 AM Signed Noted Zoë Stanton APRN.CNP Allergies As of Date: 05/03/2018 Noted Allergy Reaction LIPITOR (ATORVASTATIN CALCIUM) 01/07/2015 15 - Contraindication- Medical Olsen* Comments: Elevated LFTs and elevated CK level METFORMIN 03/01/2013 6 - Diarrhea Date Reviewed: 05/03/2018 Reviewed by: Brenna Steven Blocking Machine Operator Second - Fully Assessed Reason for Visit: [facility] Follow Up [3610] Prescriptions as of 05/03/2018 Sig: ROSUVASTATIN 10 [...] [E53.8] INVALID FOR* PAD (peripheral artery disease) ([facility]) [I73.9] INVALID FOR* Priority: C Small vessel disease ([facility]) [I99.9] INVALID FOR* DM (diabetes mellitus), type 2 with neurologica*INVALID FOR* Priority: E More... Diabetes mellitus with background retinopathy (*INVALID FOR*07/13/2016 Type 1 diabetes mellitus with mild nonprolifera*INVALID FOR*06/08/2016 Other vitreous opacities - Both Eyes [H43.399] INVALID FOR* Lens replaced by other means - Both Eyes [Z96.1]INVALID FOR*07/13/2016 CVA (cerebral vascular accident) ([facility]) [I63.9] INVALID FOR* Type 2 diabetes, controlled, [...] Priority: C More... Coronary artery disease involving nanwalek ricardo*INVALID FOR* Priority: A More... C. difficile [...] [Z02.9] INVALID FOR* More... Encounter Status:Closed by BRENNA STEVEN CMA on 05/03/18 JAZLYN Observed: 05/03/2018 Status: COMPLETED Source: [place] 12:00 AM [facility] REPOSITORY Patient Outreach (FAMPWS) CESAR GEORGE JR. ([id number]) 1960 M Date Time Provider Department 05/03/18 CATRACHO LernerRN) FAMPWS During your visit today, we recorded the following information about you: Jesusita Hayden RN 05/03/2018 5:51 PM Signed PRIMARY CARE COORDINATION IN OFFICE VISIT WITH PCP Patient has been identified by name and date of . PCP Assessment/Plan: Reviewed PCP plan with patient using Teach Back ASSESSMENT/PLAN: 1. 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 2. NSTEMI (non-ST elevated myocardial infarction) ([facility]) - ICD9: 410.70, ICD10: I21.4 - as [...] - Diarrhea Date Reviewed: 05/03/2018 Reviewed by: Brenna Steven Blocking Machine Operator Second - Fully Assessed Reason for Visit: Telegraph Inspector-In Office Visit [4194] Cmt: Cough Reason For Visit History Recorded [...] [E53.8] INVALID FOR* PAD (peripheral artery disease) ([facility]) [I73.9] INVALID FOR* Priority: C Small vessel disease (HCC) [I99.9] INVALID FOR* DM (diabetes mellitus), type 2 with neurologica*INVALID FOR* Priority: E More... Diabetes mellitus with background retinopathy (*INVALID FOR*07/13/2016 Type 1 diabetes mellitus with mild nonprolifera*INVALID FOR*06/08/2016 Other vitreous opacities - Both Eyes [H43.399] INVALID FOR* Lens replaced by other means - Both Eyes [Z96.1]INVALID FOR*07/13/2016 CVA (cerebral vascular accident) ([facility]) [I63.9] INVALID FOR* Type 2 diabetes, controlled, [...] Priority: C More... Coronary artery disease involving nanwalek ricardo*INVALID FOR* Priority: A More... C. difficile [...] 05/03/18 PROGRESS Observed: 05/02/2018 Status: COMPLETED Source: [place] 3:41 PM [facility] REPOSITORY HNO ID: [id number] Author: Catracho Mc (Rn) Service: (none) Author Type: Registered Nurse Type: Progress Notes Filed: 05/08/2018 11:30 AM Note Text: PRIMARY CARE COORDINATION QUICK NOTE Provider Action/FYI Please advise. Patient identified by name and date . Jesusita Hayden RN May 02, 2018 3:42 PM PROGRESS Observed: 05/02/2018 Status: COMPLETED Source: [place] 2:33 PM [facility] REPOSITORY HNO ID: [id number] Author: Zoë Garcia) Shannon Service: (none) Author Type: Nurse Practitioner Type: Progress Notes Filed: 05/08/2018 11:30 AM Note Text: Noted. Please have patient inform CTS of symptoms as well. Zoë Stanton APRN.CNP PROGRESS Observed: 05/02/2018 Status: COMPLETED Source: [place] 10:49 AM [facility] REPOSITORY HNO ID: [id number] Author: Catracho Mc (Rn) Service: (none) Author [...] date of . YES Spoke to spouse Rolled Oats Mill Operator plan for next outreach: Monitor for new or unusual Symptoms Signature Jesusita Hayden RN May 02, 2018 JAZLYN Observed: 05/02/2018 Status: COMPLETED Source: [place] 12:00 AM [facility] REPOSITORY Patient Outreach (FAMPWS) CESAR GEORGE JR. ([id number]) 1960 M Date Time Provider Department 05/02/18 [facility] (RN) [facility] During your visit today, we recorded [...] date of . YES Spoke to spouse Rolled Oats Mill Operator plan for next outreach: Monitor for new or unusual Symptoms Signature Jesusita Hayden RN May 02, 2018 Zoë Stanton APRN.AD 05/08/2018 11:30 AM Signed Noted. [...] Ma - Fully Assessed Reason for Visit: [facility] Follow Up [3610] Cmt: Dry cough [...] [E53.8] INVALID FOR* PAD (peripheral artery disease) ([facility]) [I73.9] INVALID FOR* Priority: C Small vessel disease ([facility]) [I99.9] INVALID FOR* DM (diabetes mellitus), type 2 with neurologica*INVALID FOR* Priority: E More... Diabetes mellitus with background retinopathy (*INVALID FOR*07/13/2016 Type 1 diabetes mellitus with mild nonprolifera*INVALID FOR*06/08/2016 Other vitreous opacities - Both Eyes [H43.399] INVALID FOR* Lens replaced by other means - Both Eyes [Z96.1]INVALID FOR*07/13/2016 CVA (cerebral vascular accident) ([facility]) [I63.9] INVALID FOR* Type 2 diabetes, controlled, [...] Priority: C More... Coronary artery disease involving nanwalek ricardo*INVALID FOR* Priority: A More... C. difficile [...] 05/08/18 PROGRESS Observed: 04/28/2018 Status: COMPLETED Source: [place] 1:58 PM [facility] [place] REPOSITORY [facility] ID: [id number] Author: Allyson Wheeler Service: (none) Author Type: Nurse Practitioner Type: Progress Notes Filed: 04/28/2018 2:51 PM Note Text: [facility] [place] CTS Post op Follow up Cesar George . is a 58 year old male who [...] EMG - Diabetic retinopathy of both eyes ([facility]) eye exam 05/29/13 - DM (diabetes mellitus) ([facility]) Diagnosed in 2004 - Mild atherosclerosis of both carotid arteries 05/2016 ICA b/l 20-39% - Polyneuropathy ([facility]) 10/2013 axon loss, Dr. Mazin Hinojosa Neuro, likely from DM and Vitamin B12 defic - Stroke ([facility]) 10/01/13 - Ulnar neuropathy 10/2013 b/l, chronic, [...] stable Sternotomy site: healing Wound: NA SV [place] sites: healing Procedures: Sutures removed from chest tube sites without difficulty. IMPRESSION AND PLAN: S/P on 04/12/2018 AGE: 58 ? ?SURGEON 1: Sammy Zhu M.D. OPERATION: CABG x3 MACK-LAD, SVG-OM, SVG-left PDA, Endoscopic vein harvest. ? Discharged on 04/19/2018 1. 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 (HCC) (primary [...] SOB, or pleural effusion SBE prophylaxis reviewed Allyson Wheeler APRN.BILINGUAL KINDERGARTEN TEACHER CBC Collected: 04/28/2018 Status: F Source: [place] 1:47 PM [facility] REPOSITORY TYPE CODE [...] <0.01 Performed By: #### CBC, CMP #### [facility] [address] [place], [place] [address] COMP METABOLIC PANEL Collected: 04/28/2018 Status: F Source: [place] 1:47 PM [facility] REPOSITORY TYPE CODE TESTS RESULT OUT OF REFERENCE UNITS RANGE LAB TP 6.3-8.0 g/dL Protein, Total 7.6 LAB ALB 3.9-4.9 g/dL Albumin 4.2 LAB CA 8.5-10.2 mg/dL Calcium, Total 9.6 LAB TBIL 0.2-1.3 mg/dL Bilirubin, Total 0.4 LAB ALKP 36-108 U/L Alkaline Phosphatase 90 LAB AST 14-40 U/L AST 15 LAB GLU 74-99 mg/dL Glucose High 141 Result Comment: The [place] Diabetes Association (ADA) provides guidance for cutoff [...] Standards of Medical Care in Diabetes 2016, [place] Diabetes Association. Diabetes Care. 2016.39(Suppl 1). LAB [...] GFR. Performed By: #### CBC, CMP #### [facility] [address] [place], [place] [address] PROGRESS Observed: 04/28/2018 Status: COMPLETED Source: [place] 1:34 PM [facility] REPOSITORY HNO ID: [id number] Author: Chitra Wilson Service: (none) Author Type: (none) Type: Progress Notes Filed: 04/28/2018 1:34 PM Note Text: Radiology Service Progress Note PATIENT NAME: Cesar George Jr. DATE OF SERVICE: April 28, 2018 TIME: 1:34 PM PATIENT IDENTITY VERIFICATION COMPLETED USING TWO (2) METHODS: Patient confirmed name verbally and Date of . PATIENT GENDER DATA: Male PATIENT RELEVANT IMPLANT DATA REVIEWED: Not Applicable RADIOLOGY DEPARTMENT: General X-ray: Exam(s) Completed: Chest X-Ray PERIPHERAL IV DATA: Not applicable SIGNED BY: Chitra Wilson April 28, 2018 1:34 PM XR CHEST 2V FRONTAL/LAT Observed: 04/28/2018 Status: F Source: [place] 1:33 PM [facility] REPOSITORY * * *Final Report* * * [...] air-filled loops of bowel. IMPRESSION: See Result. Turning And Beading Machine Operator: PSCB Transcribe Date/Time: Apr 28 2018 2:46P Dictated by : BLANCO HOLLY MD This examination was interpreted and the report reviewed and electronically signed by: BLANCO HOLLY MD on Apr 28 2018 2:47PM EST [id number] CNOV Observed: 04/28/2018 Status: COMPLETED Source: [place] 1:30 PM [facility] REPOSITORY Office Visit (THOSMN) CESAR GEORGE JR. ([id number]) 1960 M Date Time Provider Department 04/28/18 1:30 PM ALLYSON WHEELER (BILINGUAL KINDERGARTEN TEACHER) [facility] During your visit today, we recorded the following information about you: Temperature Pulse Blood pressure Weight 98.2 degrees 95/minute 118/74 87.1 kg Allyson Wheeler APRN.BILINGUAL KINDERGARTEN TEACHER 04/28/2018 2:51 PM Signed [facility] [place] CTS Post op Follow up Cesar George Jr. 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 Mazin Hinojosa Neuro, likely from DM and Vitamin B12 defic - Stroke ([facility]) 10/01/13 - Ulnar neuropathy 10/2013 b/l, chronic, [...] stable Sternotomy site: healing Wound: NA SV [place] sites: healing Procedures: Sutures removed from chest tube sites without difficulty. IMPRESSION AND PLAN: S/P on 04/12/2018 AGE: 58 ? ?SURGEON 1: Sammy Zhu M.D. OPERATION: CABG x3 MACK-LAD, SVG-OM, SVG-left PDA, Endoscopic vein harvest. ? Discharged on 04/19/2018 1. 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 (HCC) (primary [...] SOB, or pleural effusion SBE prophylaxis reviewed Allyson Wheeler APRN.BILINGUAL KINDERGARTEN TEACHER Referring Provider: SAMMY ZHU [[id number]] Allergies As of Date: 04/28/2018 Noted Allergy Reaction LIPITOR (ATORVASTATIN CALCIUM) 01/07/2015 15 - Contraindication- Medical Olsen* Comments: Elevated LFTs and elevated CK level METFORMIN 03/01/2013 6 - Diarrhea Date Reviewed: 04/28/2018 Reviewed by: Pam Ty Ma - Fully Assessed Reason for Visit: Follow Up [171] Primary Visit Diagnosis: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 ([facility]) [I25.110] Other Visit Diagnoses:PAD (peripheral artery disease) ([facility]) [I73.9] Atelectasis [J98.11] Post-operative pain [G89.18] DM (diabetes mellitus), type 2 with neurological complications (HCC) [E11.49] C. difficile colitis [A04.72] Order(s):CONSULT TO NUTRITION THERAPY [9038] Order #: [id number]: 1 rosuvastatin (CRESTOR) 10 mg tabletTake 1 [...] [E53.8] INVALID FOR* PAD (peripheral artery disease) ([facility]) [I73.9] INVALID FOR* Priority: C Small vessel disease ([facility]) [I99.9] INVALID FOR* DM (diabetes mellitus), type 2 with neurologica*INVALID FOR* Priority: E More... Diabetes mellitus with background retinopathy (*INVALID FOR*07/13/2016 Type 1 diabetes mellitus with mild nonprolifera*INVALID FOR*06/08/2016 Other vitreous opacities - Both Eyes [H43.399] INVALID FOR* Lens replaced by other means - Both Eyes [Z96.1]INVALID FOR*07/13/2016 CVA (cerebral vascular accident) ([facility]) [I63.9] INVALID FOR* Type 2 diabetes, controlled, [...] Priority: C More... Coronary artery disease involving nanwalek ricardo*INVALID FOR* Priority: A More... C. difficile [...] is not on file. Encounter Status:Closed by ALLYSON WHEELER CNP on 04/28/18 ECG COMPLETE W Observed: 04/28/2018 Status: F Source: [place] INTERPRETATION 1:30 PM [facility] REPOSITORY NAME : CESAR GEORGE PID : [id number] : 1960 Gender : Male Race : ORD : [id number] Procedure Date : Apr 28 2018 13:30:26 [...] ms QTC Calculation(Bezet) : 460 ms P [place] : 52 degrees R [place] : -6 degrees T [place] : 106 degrees Test Reason : Location : 314 : 14 Overread By : KETTY EUGENE M.D. Edited By : KETTY EUGENE M.D. Referred By : SAMMY ZHU Acquired by : ROHAN ONEAL PROGRESS Observed: 04/28/2018 Status: COMPLETED Source: [place] 8:00 AM [facility] REPOSITORY HNO ID: [id number] Author: Zoë Alonzo (Ad) Shannon Service: (none) Author Type: Nurse Practitioner Type: Progress Notes Filed: 05/02/2018 8:22 AM Note Text: Noted Zoë Stanton APRN.CNP PROGRESS Observed: 04/27/2018 Status: COMPLETED Source: [place] 10:14 AM [facility] REPOSITORY HNO ID: [id number] Author: Catracho Mc (Rn) Service: (none) Author Type: Registered Nurse Type: Progress Notes Filed: 05/02/2018 8:22 AM Note Text: PRIMARY CARE COORDINATION FOLLOW-UP NOTE Provider Action/FYI 1. Call to Pt left a to confirm his appt 04/28/18 with Allyson Wheeler CNP Post-op visit with EKG, Labs, CXR, Pt called spk with Rolled Oats Mill Operator he is going to have his drive [...] Pt will verify at 04/28 Appt with Allyson Wheeler CNP if he will maintain NA/ fluid restrictriction, and if so ask for a Dietitian Consult for [employer] [facility], and will have his sutures evaluated. 9. Pt denies needs or concerns Patient identified by name and date of . YES Spoke to patient Rolled Oats Mill Operator plan for next outreach: F/u on 04/28/18 Appt recommendations Signature Jesusita Hayden RN April 27, 2018 ADUTREA Observed: 04/27/2018 Status: COMPLETED Source: [place] 12:00 AM [facility] REPOSITORY Patient Outreach (FAMPWS) CESAR GEORGE JR. ([id number]) 1960 M Date Time Provider Department 04/27/18 CATRACHO [facility] (RN) FAMPWS During your visit today, we recorded the following information about you: Jesusita Hayden RN 05/02/2018 8:22 AM Signed PRIMARY CARE COORDINATION FOLLOW-UP NOTE Provider Action/FYI 1. Call to Pt left a to confirm his appt 04/28/18 with Allyson Wheeler CNP Post-op visit with EKG, Labs, CXR, Pt called spk with Rolled [employer] Operator he is going to have his drive [...] Pt will verify at 04/28 Appt with Allyson Wheeler CNP if he will maintain NA/ fluid restrictriction, and if so ask for a Dietitian Consult for [facility], and will have his sutures evaluated. 9. Pt denies needs or concerns Patient identified by name and date of . YES Spoke to patient Rol[employer] O[employer] Operator plan for next outreach: F/u on 04/28/18 Appt recommendations Signature Jesusita Hayden RN April 27, 2018 Zoë Stanton APRN.CNP 05/02/2018 8:22 AM Signed Noted Zoë Stanton APRN.CNP Allergies As of Date: 04/27/2018 Noted Allergy Reaction LIPITOR (ATORVASTATIN CALCIUM) 01/07/2015 15 - Contraindication- Medical Olsen* Comments: Elevated LFTs and elevated CK level METFORMIN 03/01/2013 6 - Diarrhea Date Reviewed: 04/24/2018 Reviewed by: Lee Sethi LPN - Fully Assessed Reason for Visit: Telegraph Inspector Chronic Care [4810] Cmt: Update Reason For Visit History Recorded [...] [E53.8] INVALID FOR* PAD (peripheral artery disease) ([facility]) [I73.9] INVALID FOR* Priority: C Small vessel [...] Priority: C More... Coronary artery disease involving nanwalek ricardo*INVALID FOR* Priority: A More... C. difficile [...] 05/02/18 PROGRESS Observed: 04/25/2018 Status: COMPLETED Source: [place] 2:07 PM [facility] [place] REPOSITORY HNO ID: [id number] Author: Zoë Stanton Service: (none) Author Type: Nurse Practitioner Type: Progress Notes Filed: 04/26/2018 2:34 PM Note Text: Noted Zoë Stanton APRN.CNP PROGRESS Observed: 04/25/2018 Status: COMPLETED Source: [place] 8:55 AM [facility] REPOSITORY HNO ID: [id number] Author: Catracho Mc (Rn) Service: (none) Author Type: Registered Nurse Type: Progress Notes Filed: 04/26/2018 2:34 PM Note Text: PRIMARY CARE COORDINATION FOLLOW-UP NOTE Provider Action/FYI 1. Tct Dr. Escamilla Cardiology [facility] to expedite an Appt this week for Chest tube suture site eval, removal, wound eval post-op 2. Spk with Saida Pryor Corrective And Manual Arts Therapist who only see's general cardiology issues, noting post-op care or vascular Cardiothoracic issues can not be seen at the office. 3. Message to Lisa Fuentes vascular to verify if office can [...] is scheduled 04/28/[address] Zhu/Isaak Wheeler ENTERPRISE INTEGRATION DEVELOPER [facility] 12[facility] [address] [facility] [address] [facility] [address] for X-rays, EKG, labs then Appt on 4th floor with Allyson Wheeler ENTERPRISE INTEGRATION DEVELOPER ( Aubrie noted Pt was offered appt with Surgeon at D/C, declined wanted a local appt ) Rolled Oats Mill Operator noted multiple calls to local providers who recommended f/u with Surgeon only) 5. Call to Pt left a notified of Appt 04/28/18 with Allyson Wheeler NP ( [facility]) instructions given. Patient identified by name and date of . YES Spoke to Eulalia He at Dr. Escamilla office [phone], Dr. Jean Licea, Dr. Zhu [phone] Signature Jesusita Hayden RN April 25, 2018 PROGRESS Observed: 04/25/2018 Status: COMPLETED Source: [place] 7:55 AM [facility] REPOSITORY HNO ID: [id number] Author: Zoë Alonzo (Ad) [facility] Service: (none) Author Type: Nurse Practitioner Type: Progress Notes Filed: 04/25/2018 8:23 AM Note Text: HPI/CC: Cesar George Jr. is a 58 year old male who presents for Hospital F/U. Admission date 04/01/2018-04/19/2018. Presented to [facility] for fatigue and diarrhea, CP, developed difficulty breathing, pulse ox at 88%, ECG showed no ischemia but troponin's were elevated. Cardiac cath on 04/03/2018 showed multi vessel disease. Patient was transferred to to [facility] s/p NSTEMI for evaluation for CABG. CABG [...] PO. Blood glucose levels normal. Jesusita ALCARAZ insurance healthcare representative participated in encounter. ROS as above, otherwise [...] until F/U with CTS - Jesusita ALCARAZ insurance healthcare representative to arrange earlier appt with CTS for suture removal and evalaution. - continue current medicaitons 2. C. difficile diarrhea - ICD9: 008.45, ICD10: A04.72 - C. DIFFICILE PCR- continues to have loose stools - f/u as scheduled with PCP. Zoë Stanton APRN.AD PROGRESS Observed: 04/24/2018 Status: COMPLETED Source: [place] 4:09 PM [facility] REPOSITORY [facility] ID: [id number] Author: Catracho Mc (Lin) Service: (none) Author [...] until F/U with CTS - Jesusita ALCARAZ insurance healthcare representative to arrange earlier appt with CTS for suture removal and evalaution. - continue current medicaitons ? 2. C. difficile diarrhea - ICD9: 008.45, ICD10: A04.72 - C. DIFFICILE PCR- continues to have loose stools ? - f/u as scheduled with PCP. PCC Plan of Care: 04/24/[address] Escamilla [facility] Cardiology, Vascular, Surgeon's office for Appt this week, CT site suture evaluation/ removal Next Office Visit: 05/10/2018 Plan For Next Call: CHF /CT Education, Monitor wt, Sob, unusual symptoms BS Testing Wound eval/ suture removal appt scheduled 04/28/18 with Allyson Wheeler NP [facility], 2 liter fluid restriction C-Diff results Jesusita Hayden RN April 24, 2018 CNOV Observed: 04/24/2018 Status: COMPLETED Source: [place] 2:40 PM [facility] REPOSITORY Office Visit (FAMPWS) CESAR GEORGE JR. ([id number]) 1960 M Date Time Provider Department 04/24/18 2:40 PM ZOË STANTON) FAMPWS During your visit today, we recorded the following information about you: Pulse Respiration Blood pressure Weight 88/minute 16/minute 112/66 88.5 kg Zoë Stanton APRN.CNP 04/25/2018 8:23 AM Signed HPI/CC: Cesar George Jr. is a 58 year old male who presents for Hospital F/U. Admission date 04/01/2018-04/19/2018. Presented to [facility] for fatigue and diarrhea, CP, developed difficulty breathing, pulse ox at 88%, ECG showed no ischemia but troponin's were elevated. Cardiac cath on 04/03/2018 showed multi vessel disease. Patient was transferred to to [facility] Main s/p NSTEMI for evaluation for [...] PO. Blood glucose levels normal. Jesusita ALCARAZ insurance healthcare representative participated in encounter. ROS as above, otherwise [...] until F/U with CTS - Jesusita RN insurance healthcare representative to arrange earlier appt with CTS for suture removal and evalaution. - continue current medicaitons 2. C. difficile diarrhea - ICD9: 008.45, ICD10: A04.72 - C. DIFFICILE PCR- continues to have loose stools - f/u as scheduled with PCP. Zoë Stanton APRN.BILINGUAL KINDERGARTEN TEACHER Referring Provider: SELF [200] Allergies As of Date: 04/24/2018 Noted Allergy Reaction LIPITOR (ATORVASTATIN CALCIUM) 01/07/2015 15 - Contraindication- Medical Olsen* Comments: Elevated LFTs and elevated CK level METFORMIN 03/01/2013 6 - Diarrhea Date Reviewed: 04/24/2018 Reviewed by: Lee Sethi LPN - Fully Assessed Reason for Visit: Hospital F/U [57] Cmt: [facility] transferred to [facility] Main; triple bypass Primary Visit Diagnosis:Status post three vessel coronary artery bypass [Z95.1] Other Visit Diagnosis:C. difficile diarrhea [A04.72] Order(s):C. DIFFICILE PCR [SQCDPCR] Order #: [id number] Prescriptions as of 04/24/2018 Sig: CETIRIZINE 10 [...] DIAGNOSTIC STRIPS Check blood glucose three georgie* LUIS JESUS U-100 INSULI* INJECT 20 UNITS SUBCUTANEOUSL* X [...] [E53.8] INVALID FOR* PAD (peripheral artery disease) ([facility]) [I73.9] INVALID FOR* Priority: C Small vessel disease ([facility]) [I99.9] INVALID FOR* DM (diabetes mellitus), type 2 with neurologica*INVALID FOR* Priority: E More... Diabetes mellitus with background retinopathy (*INVALID FOR*07/13/2016 Type 1 diabetes mellitus with mild nonprolifera*INVALID FOR*06/08/2016 Other vitreous opacities - Both Eyes [H43.399] INVALID FOR* Lens replaced by other means - Both Eyes [Z96.1]INVALID FOR*07/13/2016 CVA (cerebral vascular accident) ([facility]) [I63.9] INVALID FOR* Type 2 diabetes, controlled, [...] Priority: C More... Coronary artery disease involving nanwalek ricardo*INVALID FOR* Priority: A More... C. difficile [...] [Z02.9] INVALID FOR* More... Encounter Status:Closed by ZOË STANTON CNP on 04/25/18 CNCO Observed: 04/24/2018 Status: COMPLETED Source: [place] 12:00 AM [facility] REPOSITORY Letter Text Sammy Zhu MD Thoracic and Cardiovascular Surgery [address] [place] [address]/[address] [address] Toll Free: [phone] ext. [phone] Email: April 24, 2018 Avery Escalante DO [address] [place] [address] Fax No. [phone] RE: Cesar George Jr. Dear Dr. Escalante, I am pleased to provide this preliminary report on your patient, Mr. Cesar George Jr., who recently underwent surgery with me at the [facility] [place]. I am attaching an draft copy of [...] do believe we can anticipate an excellent detention benefit for Mr. George. Thank you again for sending Mr. George to me. Please do not hesitate to contact me at my office or on my personal cell phone [phone] if I may be of any further assistance with his or any patient's care. Warmest Regards, Sammy Zhu MD [facility] Observed: 04/24/2018 Status: COMPLETED Source: [place] 12:00 AM [facility] REPOSITORY Patient Outreach (FAMPWS) CESAR GEORGE JR. ([id number]) 1960 M Date Time Provider Department 04/24/18 CATRACHO LernerRN) FAMPWS During your visit today, we recorded [...] until F/U with CTS - Jesusita ALCARAZ insurance healthcare representative to arrange earlier appt with CTS for suture removal and evalaution. - continue current medicaitons ? 2. C. difficile diarrhea - ICD9: 008.45, ICD10: A04.72 - C. DIFFICILE PCR- continues to have loose stools ? - f/u as scheduled with PCP. PCC Plan of Care: 04/24/[address] Escamilla [facility] Cardiology, Vascular, Surgeon's office for Appt this week, CT site suture evaluation/ removal Next Office Visit: 05/10/2018 Plan For Next Call: CHF /CT Education, Monitor wt, Sob, unusual symptoms BS Testing Wound eval/ suture removal appt scheduled 04/28/18 with Allyson Wheeler NP [facility] [employer] [facility], 2 liter fluid restriction C-Diff results Jesusita Hayden RN April 24, 2018 Jesusita Hayden RN 04/26/2018 2:34 PM Signed PRIMARY CARE COORDINATION FOLLOW-UP NOTE Provider Action/FYI 1. Tct Dr. Escamilla Cardiology [facility] to expedite an Appt this week for Chest tube suture site eval, removal, wound eval post-op 2. Spk with Saida Pryor Corrective And Manual Arts Therapist who only see's general cardiology issues, noting post-op care or vascular Cardiothoracic issues can not be seen at the office. 3. Message to Lisa Fuentes vascular to verify if office can [...] is scheduled 04/28/[address] Zhu/Isaak Wheeler NP at 12:45 [address] [facility] [address] [address] floor desk J14 for X-rays, EKG, labs then Appt on 4th floor with Allyson Wheeler NP ( Aubrie noted Pt was offered appt with Surgeon at D/C, declined wanted a local appt ) Rolled Oats Mill Operator noted multiple calls to local providers who recommended f/u with Surgeon only) 5. Call to Pt left a vm notified of Appt 04/28/18 with Allyson Wheeler NP ( [facility]) instructions given. Patient identified by name and date of . YES Spoke to Eulalia He at Dr. Escamilla office [phone], Dr. Jean Licea, Dr. Zhu [phone] Signature Jesusita Hayden RN April 25, 2018 Zoë Stanton APRN.CNP 04/26/2018 2:34 PM Signed Noted Zoë Stanton APRN.CNP Allergies As of Date: 04/24/2018 Noted Allergy Reaction LIPITOR (ATORVASTATIN CALCIUM) 01/07/2015 15 - Contraindication- Medical Olsen* Comments: Elevated LFTs and elevated CK level METFORMIN 03/01/2013 6 - Diarrhea Date Reviewed: 04/24/2018 Reviewed by: Lee Sethi LPN - Fully Assessed Reason for Visit: Telegraph Inspector-In Office Visit [7764] Cmt: [facility] D/C 04/19/18, Dx: NSTEMI, CABG [...] DIAGNOSTIC STRIPS Check blood glucose three georgie* LUIS JESUS U-100 INSULI* INJECT 20 UNITS SUBCUTANEOUSL* HUMALOG [...] [E53.8] INVALID FOR* PAD (peripheral artery disease) ([facility]) [I73.9] INVALID FOR* Priority: C Small vessel disease ([facility]) [I99.9] INVALID FOR* DM (diabetes mellitus), type 2 with neurologica*INVALID FOR* Priority: E More... Diabetes mellitus with background retinopathy (*INVALID FOR*07/13/2016 Type 1 diabetes mellitus with mild nonprolifera*INVALID FOR*06/08/2016 Other vitreous opacities - Both Eyes [H43.399] INVALID FOR* Lens replaced by other means - Both Eyes [Z96.1]INVALID FOR*07/13/2016 CVA (cerebral vascular accident) ([facility]) [I63.9] INVALID FOR* Type 2 diabetes, controlled, [...] Priority: C More... Coronary artery disease involving nanwalek ricardo*INVALID FOR* Priority: A More... C. difficile [...] 04/26/18 PROGRESS Observed: 04/21/2018 Status: COMPLETED Source: [place] 4:40 PM [facility] REPOSITORY HNO ID: [id number] Author: Avery Escalante Service: (none) Author Type: Physician Type: Progress Notes Filed: 04/26/2018 11:06 AM Note Text: Noted, neel Escalante DO PROGRESS Observed: 04/20/2018 Status: COMPLETED Source: [place] 12:17 PM [facility] REPOSITORY HNO ID: [id number] Author: Ada Voss Pharmd Service: (none) Author Type: Pharmacist Type: [...] name and . Summary: -Pt discharged from [facility] on 04/19/18. -Follow up appointment on 04/24/18 with BILINGUAL KINDERGARTEN TEACHER. -Medication review done Yes. -Admitted for CABG Patient was contacted by telephone, identified for pharmacist care from discharge call list, and gave consent to manage medications related to transitional care management pursuant to the consult agreement with the [facility]. Patient Concerns: Patient still has some [...] EMG - Diabetic retinopathy of both eyes ([facility]) eye exam 05/29/13 - DM (diabetes mellitus) ([facility]) Diagnosed in 2004 - Mild atherosclerosis of both carotid arteries 05/2016 ICA b/l 20-39% - Polyneuropathy ([facility]) 10/2013 axon loss, Dr. Mazin Hinojosa Neuro, likely from DM and Vitamin B12 defic - Stroke ([facility]) 10/01/13 - Ulnar neuropathy 10/2013 b/l, chronic, [...] level - Metformin Diarrhea Preferred pharmacy: e- [facility] [address] [place], [place] [id number] [place] [address] - [phone] [place] [address] Medication Reconciliation: Legend: Stopped, New, Changed, Added to list All new meds were e-scripted and filled at [facility] Medication List Medication Directions Comments Action/Plan acetaminophen (TYLENOL) 325 mg tablet 2 tablets by ORAL/FEEDING TUBE route every 4 hours as needed. Discontinued: 04/19/2018 12:32 PM aspirin 81 mg chewable tablet 2 tablets by ORAL/FEEDING TUBE route once daily. Dose decrease from 325 baclofen (LIORESAL) 20 mg tablet None Entered Taking 1 tab tid Updated directions LUIS JESUS U-100 INSULIN 100 unit/mL (3 [...] blood or mucous in stool. Routed to [facility] as FYI before next office visit [...] Provider Location Dept Phone 04/20/2018 9:[address] [facility] [phone] 05/08/2018 9:00 AM LISA REAGAN [facility] [phone] 05/10/2018 12:20 PM AVERY ESCALANTE [facility] [phone] Interventions Made: Medication counseling Time spent on patient: 45-60 minutes Ada Voss PharmD April 20, 2018 12:47 PM JAZLYN Observed: 04/20/2018 Status: COMPLETED Source: [place] 12:00 AM [facility] REPOSITORY Patient Outreach (MACEY) CESAR GEORGE JR. ([id number]) 1960 M Date Time Provider Department 04/20/18 ADA VOSS PHARMD During your visit today, we recorded the following information about you: Ada Voss PharmD 04/26/2018 11:06 AM Signed TRANSITION CARE [...] name and . Summary: -Pt discharged from [facility] on 04/19/18. -Follow up appointment on 04/24/18 with BILINGUAL KINDERGARTEN TEACHER. -Medication review done Yes. -Admitted for CABG Patient was contacted by telephone, identified for pharmacist care from discharge call list, and gave consent to manage medications related to transitional care management pursuant to the consult agreement with the [facility]. Patient Concerns: Patient still has some [...] EMG - Diabetic retinopathy of both eyes ([facility]) eye exam 05/29/13 - DM (diabetes mellitus) ([facility]) Diagnosed in 2004 - Mild atherosclerosis of both carotid arteries 05/2016 ICA b/l 20-39% - Polyneuropathy ([facility]) 10/2013 axon loss, Dr. Mazin Hinojosa Neuro, likely from DM and Vitamin B12 defic - Stroke ([facility]) 10/01/13 - Ulnar neuropathy 10/2013 b/l, chronic, [...] level - Metformin Diarrhea Preferred pharmacy: e- [facility] [address] [place] [address] - [phone] [place] [address] Medication Reconciliation: Legend: Stopped, New, Changed, Added to list All new meds were e-scripted and filled at [facility] Medication List Medication Directions Comments Action/Plan acetaminophen (TYLENOL) 325 mg tablet 2 tablets by ORAL/FEEDING TUBE route every 4 hours as needed. Discontinued: 04/19/2018 12:32 PM aspirin 81 mg chewable tablet 2 tablets by ORAL/FEEDING TUBE route once daily. Dose decrease from 325 baclofen (LIORESAL) 20 mg tablet None Entered Taking 1 tab tid Updated directions LUIS JESUS U-100 INSULIN 100 unit/mL (3 [...] blood or mucous in stool. Routed to [facility] as CONNORI before next office visit on 04/24 Assessment: [...] Provider Location Dept Phone 04/20/2018 9:[address] NURSE [facility] [phone] 05/08/2018 9:00 AM LISA REAGAN [facility] [phone] 05/10/2018 12:20 PM AVERY ESCALANTE [facility] [phone] Interventions Made: Medication counseling Time spent on patient: 45-60 minutes Ada Voss, AmandaD April 20, 2018 12:47 PM Avery Escalante DO 04/26/2018 11:06 AM Signed Noted, to Zoë as VIRY Escalante DO Allergies As of [...] [E53.8] INVALID FOR* PAD (peripheral artery disease) ([facility]) [I73.9] INVALID FOR* Priority: C Small vessel disease ([facility]) [I99.9] INVALID FOR* DM (diabetes mellitus), type [...] Priority: C More... Coronary artery disease involving nanwalek ricardo*INVALID FOR* Priority: A More... C. difficile [...] OF CARE Observed: 04/19/2018 Status: COMPLETED Source: [place] 1:56 PM [facility] REPOSITORY HNO ID: [id number] Author: Karimar Palm (Procedures Tech) Service: (none) Author Type: Whiskey Filterer Type: Plan of Care Filed: 04/19/2018 1:56 PM Note Text: Pharmacy Discharge Medication Service: This patient has elected to receive their discharge prescriptions through the [facility] Bedside Prescription Delivery program. The prescriptions are currently being processed. A follow-up note will be entered once the prescriptions have been filled and delivered to the patient. Please contact me with any questions or updates to the patient's discharge medications. Kari Arpita (Procedures Tech) DCT Contact Info: [id number] PLAN OF CARE Observed: 04/19/2018 Status: COMPLETED Source: [place] 1:55 PM [facility] REPOSITORY HNO ID: [id number] Author: Kari Mendezmanny (Procedures Tech) Service: (none) Author Type: Whiskey Filterer Type: Plan of Care Filed: 04/19/2018 1:56 PM Note Text: HOUSE PIPING INSPECTOR BEDSIDE DELIVERY SURVEY 1. Patient to use [facility] Bedside Delivery - YES 2. If fax, patient would like us to fax prescriptions to Pharmacy of choice a. Pharmacy: b. Location: c. Phone: 3. Insurance card on file - YES 4. Credit card for payment - NO CNDS Observed: 04/19/2018 Status: COMPLETED Source: [place] 12:39 PM [facility] REPOSITORY HNO ID: [id number] Author: Enrike Quezada MD Service: Cardiac Surgery Author Type: Physician Type: Discharge Summaries Filed: 04/19/2018 12:51 PM Note Text: Department of Cardiothoracic Surgery Discharge Summary (Template ID [id number]) Patient Name: Cesar George Jr. Patient Admission Date: 04/03/2018 Discharge Date: April 19, 2018 Attending Physician: Sammy Zhu M.D. Primary Service: i Cts Team A Admission Diagnosis: Coronary artery [...] Hospital Problem List: 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 ([facility]) (04/04/2018) Transition of care performed with sharing of clinical summary (04/15/2018) Nicotine use disorder, F17.2 (04/12/2018) Atelectasis (04/12/2018) Bilateral pneumothoraces (04/15/2018) PAD (peripheral artery disease) ([facility]) (05/15/2014) NSTEMI (non-ST elevated myocardial infarction) ([facility]) (04/04/2018) Lower back pain (07/18/2013) Post-operative pain (04/12/2018) Hyperlipidemia (04/30/2013) DM (diabetes mellitus), type 2 with neurological complications ([facility]) (10/15/2014) C. difficile colitis (04/06/2018) Discharge planning [...] mellitus), type 2 with neurological complications ([facility]) LUIS JESUS U-100 INSULIN 100 unit/mL (3 [...] 0.05 % cream Comments: Reason for Stopping: [id number]-algal oil 1 capsule Comments: Reason for Stopping: [...] up with PCP in 1 week and senior sales administrator in 4 weeks. - Mr. George was offered an appointment to return to [facility] Outpatient department for a post operative visit with the Nurse Practitioner. He declined and prefers to follow up with PCP. Future Appointments: Future Appointments Date Time Provider Department Center 04/20/2018 9:00 AM [id number] NURSE [facility] 05/08/2018 9:00 AM [id number] REAGAN [facility] 05/10/2018 12:20 PM [id number]-THIRERYCAVERY ESCALANTE [facility] Electronically SIGNED by Licensed Independent Practitioner: Enrike Quezada MD PhD PROGRESS Observed: 04/19/2018 Status: COMPLETED Source: [place] 12:18 PM [facility] REPOSITORY HNO ID: [id number] Author: Enrike () MD Damien Service: Cardiac [...] DM2. Preoperative Hospital Course (narrative):Pt presented to [facility] on 04/01/18 w a 7d hx of [...] change after clamping study - Lives in [place], [place] with spouse. No anticipated discharge date. Discharge Planning: Anticipated Discharge Date: Unknown Unknown- Still with Left PL. Care Management Discharge Needs: Needs Prior to Discharge: To Be Determined Coronary Artery Disease Involving [place] Coronary Artery of [place] Heart With Unstable Angina Pectoris (Hcc) History: [...] ?Consult CDE regarding: DM Education including none ENTERPRISE INTEGRATION DEVELOPER to review MDI C. Difficile Colitis History: [...] Subcutaneous Heparin Labs and medications reviewed in [facility] SIGNATURE: Enrike Quezada MD PhD PATIENT NAME: Cesar George Jr. DATE: April 19, 2018 TIME: 12:19 PM PAGER/CONTACT #: [phone] XR CHEST 2V FRONTAL/LAT Observed: 04/19/2018 Status: F Source: [place] 10:35 AM [facility] [place] REPOSITORY * * *Final Report* * * [...] IMPRESSION: Please see body of the report. Turning And Beading Machine Operator: KAYE Transcribe Date/Time: Apr 19 2018 12:06P Dictated by : SUNITA SOLORZANO MD This examination was interpreted and the report reviewed and electronically signed by: SUNITA SOLORZANO MD on Apr 19 2018 12:07PM EST [id number] PROGRESS Observed: 04/19/2018 Status: COMPLETED Source: [place] 10:33 AM [facility] REPOSITORY HNO ID: [id number] Author: Deedee Cee Service: (none) Author Type: (none) Type: Progress Notes Filed: 04/19/2018 10:33 AM Note Text: Radiology Service Progress Note PATIENT NAME: Cesar George Jr. DATE OF SERVICE: April 19, [...] THERAPY NT Observed: 04/19/2018 Status: COMPLETED Source: [place] 9:13 AM [facility] REPOSITORY HNO ID: [id number] Author: Fabiola LernerPtSowmya Walden PT Service: Physical Therapy Author Type: Physical Therapist Type: Therapy (PT/OT/Speech/Resp) Filed: 04/19/2018 9:54 AM Note Text: Physical Therapy Re-Evaluation SERVICE DATE: 04/19/2018 SERVICE TIME: 912 to 40 ROOM: [place] [address] Recommended Discharge Disposition: Outpatient Physical Therapy Recommended [...] gait and mobility-other Interventions Provided: Re-evaluation;Therapeutic Activity (99528) $ Reevaluation (32590) Billed Units: 1 unit Therapeutic Activity (39103) Treatment Minutes: 17 1 unit Skilled Intervention(s): [...] evaluation/treatment. SIGNATURE: Fabiola Walden PT PATIENT NAME: Cesar George Jr. DATE: April 19, 2018 TIME: 9:46 AM PAGER/CONTACT #: [phone] CONSULT PROG Observed: 04/19/2018 Status: COMPLETED Source: [place] 8:32 AM [facility] REPOSIT[facility] HNO ID: [id number] Author: Radha Singh Service: Endocrinology Author Type: Nurse Practitioner Type: Consult Progress Note Filed: 04/19/2018 6:13 PM Note Text: DIABETES CARE TEAM NOTE SERVICE DATE: 04/19/2018 SERVICE TIME: 8:33 AM Subjective Summary of History from Prior Record: Consult Date: 04/13/18 ? Subjective ? ? HPI: Mr. Cesar George Jr. is a 58 year old male with a 213?year history of Diabetes Mellitus Type 2 hyperglycemia?(diagnosed 2004)who was admitted on 04/03/2018 transferred from [facility]SH w/ NSTEMI. C diff positive at OSH. Now s/p CABG x 3 on 04/12/2018 Past medical history significant for HTN, CAD, CVA, PAD, PVD, and NSTEMI. Patient ?does ?Exercise. 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 Last HbA1c was 5.7%on 04/04/2018. ?He has a family history of diabetes in his mother, father, grandparents from both sides. He is followed by PCP?for his diabetes at [place] Dr. Escalante. ? ? DIABETIC COMPLICATIONS: Retinopathy: [...] 221(h11) 151(h9) Lantus 30 u ?183(H2) 105? 04/17? ?101(H7) 174(H7+2)? 122(H7) Lantus 30 u? ?159(H2) ? 04/18 185(H7+2) 168(H7+2) 99(H7) Lantus 30 u 168(H2)? 123? 04/19 151(H7+2) 155(H7+2) 155(H7+2) Lantus 30u ? ? [...] ?Consult CDE regarding: DM Education including none ENTERPRISE INTEGRATION DEVELOPER to review MDI ? DM DISCHARGE PLAN: ? ?MDI insulin of Lantus and Humalog. ? Basal Insulin: Lantus 30?units q pm ? ?Prandial Insulin: Humalog 7/7/7?units AC TID ? ??Supplemental Sliding Scale: Humalog [...] prescribed by cardiology ? ?Follow up with technician support engineer and orthotic practitioner as recommended. ? ?Patient will need follow-up ?with his home PCP in 1-2 weeks after discharge. ? ?Diabetes Care Team Hospital Discharge Help Line: [phone] ? SIGNATURE: Radha Singh APRN.BILINGUAL KINDERGARTEN TEACHER PATIENT NAME: Cesar George Jr. DATE: April 19, 2018 TIME: 8:33 AM PAGER/CONTACT #: [phone] CBC Collected: 04/19/2018 Status: F Source: [place] 4:35 AM [facility] REPOSITORY TYPE CODE TESTS RESULT [...] <0.01 Performed By: #### CBC, CMP #### [facility] [address] [place], [place] [address] COMP METABOLIC PANEL Collected: 04/19/2018 Status: F Source: [place] 4:35 AM [facility] REPOSITORY TYPE CODE TESTS RESULT [...] mg/dL Glucose High 123 Result Comment: The [place] Diabetes Association (ADA) provides guidance for cutoff [...] Standards of Medical Care in Diabetes 2016, [place] Diabetes Association. Diabetes Care. 2016.39(Suppl 1). LAB [...] GFR. Performed By: #### CBC, CMP #### [facility] [address], [place] [address] PROGRESS Observed: 04/18/2018 Status: COMPLETED Source: [place] 3:51 PM [facility] [place] REPOSITORY HNO ID: [id number] Author: Enrike Boudreaux) MD Damien Service: Cardiac [...] DM2. Preoperative Hospital Course (narrative):Pt presented to [facility] on 04/01/18 w a 7d hx of [...] change after clamping study - Lives in [place], [place] with spouse. Consult to PT for anticipated needs. No anticipated discharge date. Discharge Planning: Anticipated Discharge Date: Unknown Unknown- Still with Left PL. Care Management Discharge Needs: Needs Prior to Discharge: To Be Determined Coronary Artery Disease Involving [place] Coronary Artery of [place] Heart With Unstable Angina Pectoris (Hcc) History: [...] ?Consult CDE regarding: DM Education including none ENTERPRISE INTEGRATION DEVELOPER to review PARUL C. Difficile Colitis History: [...] Subcutaneous Heparin Labs and medications reviewed in [facility] SIGNATURE: Enrike Quezada MD PhD PATIENT NAME: Cesar George Jr. DATE: April 18, 2018 TIME: 3:51 PM PAGER/CONTACT #: [phone] PROCEDURE Observed: 04/18/2018 Status: COMPLETED Source: [place] 3:46 PM [facility] REPOSITORY HNO ID: [id number] Author: Enrike Boudreaux) MD Damien Service: Cardiac [...] PM PROCEDURE Observed: 04/18/2018 Status: COMPLETED Source: [place] 3:46 PM [facility] REPOSITORY HNO ID: [id number] Author: Enrike Boudreaux) MD Damien Service: Cardiac Surgery Author Type: Physician Type: Procedures Filed: 04/18/2018 3:46 PM Note Text: Platelet Count 327 04/18/2018 Platelet Count 295 04/17/2018 Platelet Count 288 04/16/2018 Platelet Count 220 04/15/2018 PT INR 1.2 04/12/2018 PT INR 1.0 04/12/2018 PT INR 1.0 04/11/2018 PT INR 1.0 04/09/2018 rhythm normal sinus rhythm 2 ventricular wires were discontinued without difficulty Mr. Cesar George Jr. and bedside RN aware of 30 min bedrest restriction Enrike Quezada MD PhD XR CHEST 2V FRONTAL/LAT Observed: 04/18/2018 Status: F Source: [place] 1:36 PM [facility] REPOSITORY * * *Final Report* * * DATE OF EXAM: Apr 18 2018 1:36PM REJI [id number] - XR CHEST 2V FRONTAL/LAT [...] wires unchanged in alignment. IMPRESSION: See results. Turning And Beading Machine Operator: KAYE Transcribe Date/Time: Apr 18 2018 2:39P Dictated by : TEODORA AGUILAR MD This examination was interpreted and the report reviewed and electronically signed by: TEODORA AGUILAR MD on Apr 18 2018 2:49PM EST [id number] PROGRESS Observed: 04/18/2018 Status: COMPLETED Source: [place] 1:34 PM [facility] REPOSITORY HNO ID: [id number] Author: Raciel Solares Rt Service: (none) Author Type: (none) Type: Progress Notes Filed: 04/18/2018 1:35 PM Note Text: Radiology Service Progress Note PATIENT NAME: Cesar George Jr. DATE OF SERVICE: April 18, [...] CONSULT PROG Observed: 04/18/2018 Status: COMPLETED Source: [place] 10:10 AM [facility] REPOSITORY HNO ID: [id number] Author: Radha Singh Service: Endocrinology Author Type: Nurse Practitioner Type: Consult Progress Note Filed: 04/18/2018 5:49 PM Note Text: DIABETES CARE TEAM NOTE SERVICE DATE: 04/18/2018 SERVICE TIME: 10:10 AM Subjective Summary of History from Prior Record: Consult Date: 04/13/18 ? Subjective ? ? HPI: Mr. Cesar George Jr. is a 58 year old male with a 213?year history of Diabetes Mellitus Type 2 hyperglycemia?(diagnosed 2004)who was admitted on 04/03/2018 transferred from [facility] w/ NSTEMI. C diff positive at OSH. Now s/p CABG x 3 on 04/12/2018 Past medical history significant for HTN, CAD, CVA, PAD, PVD, and NSTEMI. Patient ?does ?Exercise. 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 Last HbA1c was 5.7%on 04/04/2018. ?He has a family history of diabetes in his mother, father, grandparents from both sides. He is followed by PCP?for his diabetes at [place] Dr. Escalante. ? ? DIABETIC COMPLICATIONS: Retinopathy: [...] 7/2? ?101(H7) 174(H7+2)? 122(H7) Lantus 30 u? ?159(H2) [...] ?Consult CDE regarding: DM Education including none ENTERPRISE INTEGRATION DEVELOPER to review MDI ? DM DISCHARGE PLAN: ? ?MDI insulin of Lantus and Humalog. ? ?Check blood sugars Three times a Day? ? ?Diet: Heart Healthy Diet and CHO Controlled Diet ? ?Exercise as prescribed by cardiology ? ?Follow up with technician support engineer and orthotic practitioner as recommended. ? ?Patient will need follow-up ?with his home economic developer/PCP in 1-2 weeks after discharge. ? ?Diabetes Care Team Hospital Discharge Help Line: [phone] ? SIGNATURE: Radha Singh APRN.CNP PATIENT NAME: Cesar George Jr. DATE: April 18, 2018 TIME: 10:10 AM PAGER/CONTACT #: [phone] PROGRESS Observed: 04/18/2018 Status: COMPLETED Source: [place] 8:31 AM [facility] REPOSITORY HNO ID: [id number] Author: Tommie Wilson Service: (none) Author Type: (none) Type: Progress Notes Filed: 04/18/2018 8:32 AM Note Text: Radiology Service Progress Note PATIENT NAME: Cesar George Jr. DATE OF SERVICE: April 18, [...] 2V FRONTAL/LAT Observed: 04/18/2018 Status: F Source: [place] 8:30 AM [facility] REPOSITORY * * *Final Report* * * [...] IMPRESSION: Please see body of the report. Turning And Beading Machine Operator: PSCB Transcribe Date/Time: Apr 18 2018 9:08A Dictated by : SUNITA SOLORZANO MD This examination was interpreted and the report reviewed and electronically signed by: SUNITA SOLORZANO MD on Apr 18 2018 9:10AM EST [id number] ALLIED HEALTH Observed: 04/18/2018 Status: COMPLETED Source: [place] 8:30 AM [facility] REPOSITORY HNO ID: [id number] Author: Cesar Lee (Ex Phys) Service: Cardiovascular Medicine Author Type: Card Dealer Type: Allied Health Filed: 04/18/2018 10:12 AM Note Text: CARDIAC REHABILITATION PHASE I FOLLOW-UP PATIENT NAME: Cesar George Jr. SERVICE DATE: April 18, 2018 SESSION TIME: 829 Comments: Patient amb. 400 ft. indep. in [...] -----> 45 + minutes MARTINEZ Sen Pager: [phone] April 18, 2018 CBC Collected: 04/18/2018 Status: F Source: [place] 7:19 AM [facility] REPOSITORY TYPE CODE TESTS RESULT [...] <0.01 Performed By: #### CBC, CMP #### [facility] [address] [place], [place] [address] COMP METABOLIC PANEL Collected: 04/18/2018 Status: F Source: [place] 7:19 AM [facility] REPOSITORY TYPE CODE TESTS RESULT [...] mg/dL Glucose High 178 Result Comment: The [place] Diabetes Association (ADA) provides guidance for cutoff [...] Standards of Medical Care in Diabetes 2016, [place] Diabetes Association. Diabetes Care. 2016.39(Suppl 1). LAB [...] GFR. Performed By: #### CBC, CMP #### [facility] [address] [place] [address] PROGRESS Observed: 04/17/2018 Status: COMPLETED Source: [place] 2:44 PM [facility] REPOSITORY O ID: [id number] Author: Enrike Boudreaux) MD Damien Service: Cardiac [...] DM2. Preoperative Hospital Course (narrative):Pt presented to [facility] on 04/01/18 w a 7d hx of [...] Repeat CXR in AM. - Lives in [place], [place] with spouse. Consult to PT for anticipated needs. No anticipated discharge date. Discharge Planning: Anticipated Discharge Date: Unknown Unknown- Still with Left PL. Care Management Discharge Needs: Needs Prior to Discharge: To Be Determined Coronary Artery Disease Involving [place] Coronary Artery of [place] Heart With Unstable Angina Pectoris (Hcc) History: [...] ?Consult CDE regarding: DM Education including none ENTERPRISE INTEGRATION DEVELOPER to review MDI C. Difficile Colitis History: C. Diff positive at OSH. Assessment: Stable, no diarrhea Plan: ID following, continue PO vancomycin. Discharge Planning Issues -Lives in [place], [place] with spouse. No anticipated discharge needs DAILY STEP DOWN CHECKLIST FOR CATHETER RELATED INFECTION PREVENTION CVC, PICC, Josh and/or Permacath present? No Does the patient have a urinary catheter beyond POD 2? No VTE Risk Assessment: High risk VTE Mechanical and/or Pharmacologic Prophylaxis: IPC Device and Subcutaneous Heparin Labs and medications reviewed in [facility] SIGNATURE: Enrike Quezada MD PhD PATIENT NAME: Cesar George Jr. DATE: April 17, 2018 TIME: 2:44 PM PAGER/CONTACT #: [phone] PROCEDURE Observed: 04/17/2018 Status: COMPLETED Source: [place] 2:28 PM [facility] REPOSITORY HNO ID: [id number] Author: Enrike Quezada MD Service: Cardiac Surgery Author Type: Physician Type: Procedures Filed: 04/17/2018 2:28 PM Note Text: Remaining MS Sonido - < 50 cc serosanguinous drainage out [...] CASE MANAGEM Observed: 04/17/2018 Status: COMPLETED Source: [place] 2:18 PM [facility] REPOSITORY HNO ID: [id number] Author: Estephania Mackenzie) LIN Gunn Service: Case Management Author Type: Registered Nurse Type: Care Mgt Progress Note Filed: 04/17/2018 2:22 PM Note Text: CARE MANAGEMENT PROGRESS NOTE SERVICE DATE: 04/17/2018 SERVICE TIME: 2:18 pm LOS: 13 days Needs Prior to Discharge: None CHANGE IN CONDITION NOTE: Patient transferred to [facility] from [facility] on 04/14/2018. S/P CABG X 3 on [...] indicated. SIGNATURE: Estephania Gunn RN PATIENT NAME: Cesar George Jr. DATE: April 17, 2018 TIME: 2:18 PM PAGER/CONTACT #: [phone] CONSULT PROG Observed: 04/17/2018 Status: COMPLETED Source: [place] 1:37 PM [facility] [place] REPOSITORY HNO ID: [id number] Author: Marita Boudreaux) Emile Service: Infectious Disease Author Type: Physician Type: Consult Progress Note Filed: 04/17/2018 1:39 PM Note Text: INFECTIOUS DISEASE CONSULT SERVICE PROGRESS NOTE Date: April 17, 2018 Patient Name: Cesar George Jr. Interval Events: Underwent CABG on 04/12/18 Transferred to [facility] Having 1 BM daily--more solid. Denies new [...] Baptiste MD Staff physician Infectious Diseases Pager: [phone] Date and Time of Service: April 17, 2018 CONSULT PROG Observed: 04/17/2018 Status: COMPLETED Source: [place] 7:56 AM [facility] [place] REPOSITORY HNO ID: [id number] Author: Radha Singh Service: Endocrinology Author Type: Nurse Practitioner Type: Consult Progress Note Filed: 04/17/2018 6:44 PM Note Text: DIABETES CARE TEAM NOTE SERVICE DATE: 04/17/2018 SERVICE TIME: 7:56 AM Subjective Summary of History from Prior Record: Consult Date: 04/13/18 ? Subjective ? ? HPI: Mr. Cesar George . is a 58 year old male with a 213?year history of Diabetes Mellitus Type 2 hyperglycemia?(diagnosed 2004)who was admitted on 04/03/2018 transferred from OSH w/ NSTEMI. C diff positive at OSH. Now s/p CABG x 3 on 04/12/2018 Past medical history significant for HTN, CAD, CVA, PAD, PVD, and NSTEMI. Patient ?does ?Exercise. 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 Last HbA1c was 5.7%on 04/04/2018. ?He has a family history of diabetes in his mother, father, grandparents from both sides. He is followed by PCP?for his diabetes at [place] Dr. Escalante. ? ? DIABETIC COMPLICATIONS: Retinopathy: [...] ?Consult CDE regarding: DM Education including none ENTERPRISE INTEGRATION DEVELOPER to review MDI ? DM DISCHARGE PLAN: ? ?MDI insulin of Lantus and Humalog. ? ?Check blood sugars Three times a Day? ? ?Diet: Heart Healthy Diet and CHO Controlled Diet ? ?Exercise as prescribed by cardiology ? ?Follow up with technician support engineer and orthotic practitioner as recommended. ? ?Patient will need follow-up ?with his home economic developer/PCP in 1-2 weeks after discharge. ? ?Diabetes Care Team Hospital Discharge Help Line: [phone] ? SIGNATURE: Radha Singh APRN.BILINGUAL KINDERGARTEN TEACHER PATIENT NAME: Cesar George JrJosh DATE: April 17, 2018 TIME: 7:56 AM PAGER/CONTACT #: [phone] CBC Collected: 04/17/2018 Status: F Source: [place] 5:50 AM [facility] REPOSITORY TYPE CODE [...] <0.01 Performed By: #### CBC, CMP #### [facility] [address] [place], [place] [address] COMP METABOLIC PANEL Collected: 04/17/2018 Status: F Source: [place] 5:50 AM [facility] REPOSITORY TYPE CODE TESTS RESULT OUT OF REFERENCE UNITS RANGE LAB TP 6.3-8.0 g/dL Protein, Total 6.5 LAB ALB 3.9-4.9 g/dL Low Albumin 3.2 LAB CA 8.5-10.2 mg/dL Calcium, Total 8.8 LAB TBIL 0.2-1.3 mg/dL Bilirubin, Total 0.4 LAB ALKP 36-108 U/L Alkaline Phosphatase 47 LAB AST 14-40 U/L AST 17 LAB GLU 74-99 mg/dL Glucose High 105 Result Comment: The [place] Diabetes Association (ADA) provides guidance for cutoff [...] Standards of Medical Care in Diabetes 2016, [place] Diabetes Association. Diabetes Care. 2016.39(Suppl 1). LAB [...] GFR. Performed By: #### CBC, CMP #### [facility] [address] [place], [place] [address] XR ABDOMEN 1V SUPINE Observed: 04/16/2018 Status: F Source: [place] 12:41 PM [facility] REPOSITORY * * *Final Report* * * DATE OF EXAM: Apr 16 2018 12:41PM JIX [id number] - XR ABDOMEN 1V SUPINE [...] TUBE AND MEDIASTINAL DRAIN OVERLIE THE ABDOMEN. Turning And Beading Machine Operator: PSCB Transcribe Date/Time: Apr 16 2018 9:12P Dictated by : FROYLAN ABREU MD This examination was interpreted and the report reviewed and electronically signed by: FROYLAN ABREU MD on Apr 16 2018 9:13PM EST [id number] PROGRESS Observed: 04/16/2018 Status: COMPLETED Source: [place] 12:02 PM [facility] REPOSITORY HNO ID: [id number] Author: Ana Pedroza (Fel) Service: Cardiac Surgery Author Type: Fellow Type: Progress Notes Filed: 04/16/2018 12:28 PM Note Text: Doris Hope 58M, 04/12 CABG X3 Passed stool yesterday [...] CONSULT PROG Observed: 04/16/2018 Status: COMPLETED Source: [place] 11:34 AM [facility] REPOSITORY HNO ID: [id number] Author: Marcin Wilder Service: Endocrinology Author Type: Nurse Practitioner Type: Consult Progress Note Filed: 04/16/2018 7:40 PM Note Text: DIABETES CARE TEAM NOTE SERVICE DATE: 04/16/2018 SERVICE TIME: 8:51 AM Subjective Summary of History from Prior Record: Consult Date: 04/13/18 ? Subjective ? HPI: Mr. Cesar George Jr. is a 58 year old male with a 213 year history of Diabetes Mellitus Type 2 hyperglycemia (diagnosed 2004)who was admitted on 04/03/2018 transferred from [facility]SH w/ NSTEMI. C diff positive at OSH. Now s/p CABG x 3 on 04/12/2018 Past medical history significant for HTN, CAD, CVA, PAD, PVD, and NSTEMI. Patient does Exercise. 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 Last HbA1c was 5.7%on 04/04/2018. He has a family history of diabetes in his mother, father, grandparents from both sides. He is followed by PCP for his diabetes at [place] Dr. Escalante. ? DIABETIC COMPLICATIONS: Retinopathy: Unspecified [...] Consult CDE regarding: DM Education including none ENTERPRISE INTEGRATION DEVELOPER to review MDI ? DM DISCHARGE PLAN: ? MDI insulin of Lantus and Humalog. ? Check blood sugars Three times a Day ? Diet: Heart Healthy Diet and CHO Controlled Diet ? Exercise as prescribed by cardiology ? Follow up with technician support engineer and orthotic practitioner as recommended. ? Patient will need follow-up with his home economic developer/PCP in 1-2 weeks after discharge. ? Diabetes Care Team Hospital Discharge Help Line: [phone] ? ? Marcin Wilder [facility] [place] Pager [phone] ; Covering DCT/Endo service today until 6 PM Please see On-Call Directory on Home Page for coverage after 6 PM PROGRESS Observed: 04/16/2018 Status: COMPLETED Source: [place] 8:45 AM [facility] REPOSITORY HNO ID: [id number] Author: Lizandro Wilson Service: (none) Author Type: (none) Type: Progress Notes Filed: 04/16/2018 8:45 AM Note Text: Radiology Service Progress Note PATIENT NAME: Cesar George Jr. DATE OF SERVICE: April 16, 2018 TIME: 8:45 AM PATIENT IDENTITY VERIFICATION COMPLETED USING TWO (2) METHODS: Patient confirmed name verbally and ID band matches.. PATIENT GENDER DATA: Male PATIENT RELEVANT IMPLANT DATA REVIEWED: Yes RADIOLOGY DEPARTMENT: General X-ray: Exam(s) Completed: Chest X-Ray PERIPHERAL IV DATA: Not applicable SIGNED BY: Lizandro Wilson April 16, 2018 8:45 AM XR CHEST 2V FRONTAL/LAT Observed: 04/16/2018 Status: F Source: [place] 8:43 AM [facility] REPOSITORY * * *Final Report* * * [...] IMPRESSION: Please see body of the report. Turning And Beading Machine Operator: KAYE Transcribe Date/Time: Apr 16 2018 9:20A Dictated by : SUNITA SOLORZANO MD This examination was interpreted and the report reviewed and electronically signed by: SUNITA SOLORZANO MD on Apr 16 2018 9:22AM EST [id number] COMP METABOLIC PANEL Collected: 04/16/2018 Status: F Source: [place] 6:15 AM [facility] [place] REPOSITORY TYPE CODE TESTS RESULT OUT OF REFERENCE UNITS RANGE LAB TP 6.3-8.0 g/dL Low Protein, Total 6.2 LAB ALB 3.9-4.9 g/dL Low Albumin 3.0 LAB CA 8.5-10.2 mg/dL Calcium, Total 8.9 LAB TBIL 0.2-1.3 mg/dL Bilirubin, Total 0.4 LAB ALKP 36-108 U/L Alkaline Phosphatase 47 LAB AST 14-40 U/L AST 21 LAB GLU 74-99 mg/dL Glucose 88 Result Comment: The [place] Diabetes Association (ADA) provides guidance for cutoff [...] Standards of Medical Care in Diabetes 2016, [place] Diabetes Association. Diabetes Care. 2016.39(Suppl 1). LAB [...] GFR. Performed By: #### CMP, CBC #### [facility] [address] [place], [place] [address] CBC Collected: 04/16/2018 Status: F Source: [place] 6:15 AM [facility] REPOSITORY TYPE CODE TESTS RESULT [...] <0.01 Performed By: #### CMP, CBC #### [facility] [address] [place], [place] [address] NURSING PROG Observed: 04/15/2018 Status: COMPLETED Source: [place] 6:40 PM [facility] REPOSITORY HNO ID: [id number] Author: Terri (Rn) LIN Polanco Service: Nursing Author Type: Registered Nurse Type: Nursing Progress Note Filed: 04/15/2018 7:18 PM Note Text: Nursing Progress Note Patient Name: Cesar George Jr. Patient Location: [id number] Pt voided once since bonner removal today (unsaved) with bowel movement around 1500. Notified reproduction artist Dee Duke MD with bladder scan results of >380 ml. No orders for bonner placement at this time. This note was completed by: Terri Polanco RN XR ABDOMEN 1V SUPINE Observed: 04/15/2018 Status: F Source: [place] 2:55 PM [facility] REPOSITORY * * *Final Report* * * [...] stomach. Mild, multilevel thoracolumbar spine degenerative arthropathy. Turning And Beading Machine Operator: KAYE Transcribe Date/Time: Apr 15 2018 6:24P Dictated by : AGUSTÍN PETERSON DO This examination was interpreted and the report reviewed and electronically signed by: AGUSTÍN PETERSON DO on Apr 15 2018 6:25PM EST [id number] PROGRESS Observed: 04/15/2018 Status: COMPLETED Source: [place] 12:48 PM [facility] REPOSITORY HNO ID: [id number] Author: Jessica Garcia) JUDE Nogueira.AD Service: Cardiac [...] DM2. Preoperative Hospital Course (narrative):Pt presented to [facility] on 04/01/18 w a 7d hx of [...] PL. Repeat CXR in AM. -Lives in [place], [place] with spouse. Consult to PT for anticipated needs. No anticipated discharge date. Discharge Planning: Anticipated Discharge Date: Unknown Unknown- Still with Left PL. Care Management Discharge Needs: Needs Prior to Discharge: To Be Determined Coronary Artery Disease Involving [place] Coronary Artery of [place] Heart With Unstable Angina Pectoris (Hcc) History: [...] pain control. Nstemi (Non-St Elevated Myocardial Infarction) ([facility]) 04/12/2018 s/p CABGx3, MACK to LAD , SVG to PD pf CX , SVG to OM Depression Home regimen Nortriptyline A/P: Resumed home dose pod#1 Post-Operative Pain History: Developed postoperatively Assessment: Pain well managed with current pain medication regimen. Plan: Discontinue IV ORNAMENT SETTER, Continue scheduled daily Lidoderm patches and PRN Tylenol and Oxycodone. Pain goal < 4 Lower Back Pain History: Home regimen: Neurontin and zanaflex preoperatively. Assessment: adequate pain mangement Plan: Cotninue Lidoderm patches, Neurotin, HS Pamelor, and Nanette. DM (Diabetes Mellitus), Type 2 With Neurological Complications ([facility]) History: HgA1C 5.7. Home regimen: humalog insulin Assessment: Current BG range 94-134 Plan: Endo following. RECOMMENDATIONS: ? ??Basal Insulin: Lantus 30?units q pm ? ?Prandial Insulin: Humalog 5?units AC TID ? ??Supplemental Sliding Scale: Humalog Program #2 AC AND HS ? ?Accuchecks: AC/HS ? ?Recommend Heart Healthy Diet and CHO Controlled Diet ? ?Consult CDE regarding: DM Education including none ENTERPRISE INTEGRATION DEVELOPER to review MDI Hyperlipidemia History: Recent Lipid [...] PO vancomycin. Discharge Planning Issues -Lives in [place], [place] with spouse. Consult to PT for [...] Pedroza SIGNATURE: Jessica Nogueira CNP PATIENT NAME: Cesar George Jr. DATE: April 15, 2018 TIME: 12:49 PM PAGER/CONTACT #: [phone] ETX#[id number] PROGRESS Observed: 04/15/2018 Status: COMPLETED Source: [place] 9:32 AM [facility] REPOSITORY HNO ID: [id number] Author: Estefany Peterson (RtSuzette Bolaños Service: Radiology Author Type: Whiskey Filterer Type: Progress Notes Filed: 04/15/2018 9:32 AM Note Text: Radiology Service Progress Note PATIENT NAME: Cesar George Jr. DATE OF SERVICE: April 15, 2018 TIME: 9:32 AM PATIENT IDENTITY VERIFICATION COMPLETED USING TWO (2) METHODS: Patient confirmed name verbally and ID band matches.. PATIENT GENDER DATA: Male PATIENT RELEVANT IMPLANT DATA REVIEWED: Yes RADIOLOGY DEPARTMENT: General X-ray: Exam(s) Completed: Chest X-Ray PERIPHERAL IV DATA: Not applicable SIGNED BY: RT Pam April 15, 2018 9:32 AM XR CHEST 2V FRONTAL/LAT Observed: 04/15/2018 Status: F Source: [place] 9:18 AM [facility] REPOSITORY * * *Final Report* * * DATE OF EXAM: Apr 15 2018 9:18AM JIX [id number] - XR CHEST 2V FRONTAL/LAT [...] IMPRESSION: Please see body of the report. Turning And Beading Machine Operator: PSCElizabeth Transcribe Date/Time: Apr 15 2018 10:22A Dictated by : SUNITA SOLORZANO MD This examination was interpreted and the report reviewed and electronically signed by: SUNITA SOLORZANO MD on Apr 15 2018 10:23AM EST [id number] CONSULT PROG Observed: 04/15/2018 Status: COMPLETED Source: [place] 6:11 AM [facility] REPOSITORY HNO ID: [id number] Author: Marcin (Drew) Meño Service: Endocrinology Author Type: Nurse Practitioner Type: Consult Progress Note Filed: 04/15/2018 12:05 PM Note Text: DIABETES CARE TEAM NOTE SERVICE DATE: 04/15/2018 SERVICE TIME: 8:51 AM Subjective Summary of History from Prior Record: Consult Date: 04/13/18 ? Subjective ? HPI: Mr. Cesar George Jr. is a 58 year old male with a 213 year history of Diabetes Mellitus Type 2 hyperglycemia (diagnosed 2004)who was admitted on 04/03/2018 transferred from OSH w/ NSTEMI. C diff positive at OSH. Now s/p CABG x 3 on 04/12/2018 Past medical history significant for HTN, CAD, CVA, PAD, PVD, and NSTEMI. Patient does Exercise. 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 Last HbA1c was 5.7%on 04/04/2018. He has a family history of diabetes in his mother, father, grandparents from both sides. He is followed by PCP for his diabetes at [place] Dr. Escalante. ? DIABETIC COMPLICATIONS: Retinopathy: Unspecified [...] Consult CDE regarding: DM Education including none ENTERPRISE INTEGRATION DEVELOPER to review MDI ? DM DISCHARGE PLAN: ? MDI insulin of Lantus and Humalog. ? Check blood sugars Three times a Day ? Diet: Heart Healthy Diet and CHO Controlled Diet ? Exercise as prescribed by cardiology ? Follow up with technician support engineer and orthotic practitioner as recommended. ? Patient will need follow-up with his home economic developer/PCP in 1-2 weeks after discharge. ? Diabetes Care Team Hospital Discharge Help Line: [phone] ? ? Marcin Wilder [facility] Endocrine [facility] Met[facility] [place] Pager [phone] ; Covering DCT/Endo service today until 6 PM Please see On-Call Directory on Home Page for coverage after 6 PM CBC Collected: 04/15/2018 Status: F Source: [place] 4:19 AM [facility] REPOSITORY TYPE CODE [...] <0.01 Performed By: #### CBC, CMP #### [facility] [address] [place], [place] [address] COMP METABOLIC PANEL Collected: 04/15/2018 Status: F Source: [place] 4:19 AM [facility] REPOSITORY TYPE CODE TESTS RESULT OUT OF REFERENCE UNITS RANGE LAB TP 6.3-8.0 g/dL Low Protein, Total 6.2 LAB ALB 3.9-4.9 g/dL Low Albumin 3.3 LAB CA 8.5-10.2 mg/dL Calcium, Total 8.9 LAB TBIL 0.2-1.3 mg/dL Bilirubin, Total 0.6 LAB ALKP 36-108 U/L Alkaline Phosphatase 45 LAB AST 14-40 U/L AST 20 LAB GLU 74-99 mg/dL Glucose 92 Result Comment: The [place] Diabetes Association (ADA) provides guidance for cutoff [...] Standards of Medical Care in Diabetes 2016, [place] Diabetes Association. Diabetes Care. 2016.39(Suppl 1). LAB [...] GFR. Performed By: #### CBC, CMP #### [facility] [address] [place] [address] NURSING PROG Observed: 04/14/2018 Status: COMPLETED Source: [place] 7:36 PM [facility] REPOSITORY HNO ID: [id number] Author: Hyun LernerRn) LIN Montes De Oca Service: Nursing Author Type: Registered Nurse Type: Nursing Progress Note Filed: 04/14/2018 8:24 PM Note Text: Nursing Progress Note Patient Name: Cesar George Jr. Patient Location: [place] [id number] Transfer Note: Patient transferred into room/unit J-2 in stable condition. Actions taken: Pt oriented to the room, call light and [facility]'s policies and procedures. Pt informed that he [...] RN NUTRITION Observed: 04/14/2018 Status: COMPLETED Source: [place] 2:41 PM [facility] REPOSITORY HNO ID: [id number] Author: Jen Peterson (Diet-T) Rich Service: Nutrition Therapy Author Type: Cook Pie Type: Nutrition Filed: 04/14/2018 2:53 PM Note [...] not met Calorie Count of Meals from [facility]: 04/13/18 Nothing noted 04/12/18 NPO 04/11/18 Kcal~1232 [...] Type: Routine Care/15 min 2 units SIGNATURE: Jen Villanueva, DIET-T PATIENT NAME: Cesar George Jr. DATE: April 14, 2018 TIME: 2:41 PM PAGER: [phone] GASA + ALL Collected: 04/14/2018 Status: F Source: [facility] 11:39 AM [facility] USE ONLY REPOSITORY TYPE CODE TESTS RESULT [...] Art Administration Result Comment: 1LNC LAB ACBDTE [id number] Notify Date, Art LAB ACBTME [id number] Notify Time, Art Performed By: #### ALLBG #### [facility] [address] [place], [place] [address] CONSULT PROG Observed: 04/14/2018 Status: COMPLETED Source: [place] 10:26 AM [facility] REPOSITORY HNO ID: [id number] Author: Marita Baptiste Service: Infectious Disease Author Type: Physician Type: Consult Progress Note Filed: 04/14/2018 5:45 PM Note Text: INFECTIOUS DISEASE CONSULT SERVICE PROGRESS NOTE Date: April 14, 2018 Patient Name: Cesar George Jr. Interval Events: Underwent CABG on [...] mg injection 100 mcg INTRAVENOUS PRN fentaNYL ORNAMENT SETTER 20 mcg/mL in NaCl 0.9% 100 mL [...] Baptiste MD Staff physician Infectious Diseases Pager: [phone] Date and Time of Service: April 14, 2018 / PROGRESS Observed: 04/14/2018 Status: COMPLETED Source: [place] 9:22 AM [facility] REPOSITORY HNO ID: [id number] Author: Magaly Talbot (Jerker) She Service: Critical Care Author Type: Nurse Practitioner Type: Progress Notes Filed: 04/14/2018 9:37 AM Note Text: [facility] CVICU Note Name: Cesar George Jr. Coordination of Care Note: Indication [...] This Encounter: Problem Coronary Artery Disease Involving [place] Coronary Artery of [place] Heart With Unstable Angina Pectoris ([facility]) 04/12/2018 s/p CABGx3, MACK to LAD , SVG to PD pf CX , SVG to OM CAD Core Measures: Aspirin: Yes Beta blockers: Yes Statins: Reassess for Best Practices prior to hospital discharge Nicotine use disorder, F17.2 Encourage cessation Atelectasis A/P: Encourage OOB, PEP use and optimize pain control. Wean O2 as tolerated. Increase diuretics Nstemi (Non-St Elevated Myocardial Infarction) ([facility]) 04/12/2018 s/p CABGx3, MACK to LAD , SVG to PD pf CX , SVG to OM Pad (Peripheral Artery Disease) ([facility]) Depression Home regimen Nortriptyline A/P: Resumed home dose pod#1 Post-Operative Pain A/P On fentanyl ORNAMENT SETTER, scheduled lidoderm patches and tylenol, prn oxycodone. [...] (Diabetes Mellitus), Type 2 With Neurological Complications ([facility]) HgA1C 5.7. Home regimen: humalog insulin A/P: [...] + ALL Collected: 04/14/2018 Status: F Source: [place] FOR 7:41 AM [facility] RADIANCE USE ONLY REPOSITORY TYPE CODE TESTS [...] Lactate 0.7 Performed By: #### ALLBG #### [facility] [address] [place], [place] [address] CONSULT PROG Observed: 04/14/2018 Status: COMPLETED Source: [place] 5:50 AM [facility] REPOSITORY HNO ID: [id number] Author: Marcin Aberuy Service: Endocrinology Author Type: Nurse Practitioner Type: Consult Progress Note Filed: 04/14/2018 7:32 PM Note Text: DIABETES CARE TEAM NOTE SERVICE DATE: 04/14/2018 SERVICE TIME: 5:51 AM Subjective Summary of History from Prior Record: Consult Date: 04/13/18 ? Subjective ? HPI: Mr. Cesar George Jr. is a 58 year old male with a 213 year history of Diabetes Mellitus Type 2 hyperglycemia (diagnosed 2004)who was admitted on 04/03/2018 transferred from OSH w/ NSTEMI. C diff positive at OSH. Now s/p CABG x 3 on 04/12/2018 Past medical history significant for HTN, CAD, CVA, PAD, PVD, and NSTEMI. Patient does Exercise. 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 Last HbA1c was 5.7%on 04/04/2018. He has a family history of diabetes in his mother, father, grandparents from both sides. He is followed by PCP for his diabetes at [place] Dr. Escalante. ? DIABETIC COMPLICATIONS: Retinopathy: Unspecified [...] Consult CDE regarding: DM Education including none ENTERPRISE INTEGRATION DEVELOPER to review MDI ? DM DISCHARGE PLAN: ? MDI insulin of Lantus and Humalog. ? Check blood sugars Three times a Day ? Diet: Heart Healthy Diet and CHO Controlled Diet ? Exercise as prescribed by cardiology ? Follow up with technician support engineer and orthotic practitioner as recommended. ? Patient will need follow-up with his home economic developer/PCP in 1-2 weeks after discharge. ? Diabetes Care Team Hospital Discharge Help Line: [phone] ? ? Marcin Wilder [facility] Endocrine and Metabolism [place] Pager [phone] ; Covering DCT/Endo service today until 6 PM Please see On-Call Directory on Home Page for coverage after 6 PM GASA + ALL Collected: 04/14/2018 Status: F Source: [place] FOR 5:46 AM [facility] USE ONLY REPOSITORY TYPE CODE [...] Lactate 1.1 Performed By: #### ALLBG #### [facility] [address] [place], [place] [address] XR CHEST 1V FRONTAL Observed: 04/14/2018 Status: F Source: [facility] 1:48 AM [facility] REPOSITORY * * *Final Report* * * [...] No pneumothorax. Cardiomediastinal silhouette: Stable cardiac silhouette. Turning And Beading Machine Operator: KAYE Transcribe Date/Time: Apr 14 2018 7:55A Dictated by : BLANCO HOLLY MD This examination was interpreted and the report reviewed and electronically signed by: BLANCO HOLLY MD on Apr 14 2018 7:56AM EST [id number] GASA + ALL Collected: 04/14/2018 Status: F Source: [facility] 1:37 AM [facility] RADIANCE USE ONLY REPOSITORY TYPE CODE TESTS [...] Art [id number] LAB ACBTME Notify Time, Art [id number] Performed By: #### ALLBG #### [facility] [address] [place], [place] [address] CBC Collected: 04/14/2018 Status: F Source: [place] 1:36 AM [facility] REPOSITORY TYPE CODE TESTS RESULT [...] <0.01 Performed By: #### CBC, CMP #### [facility] [address] [place], [place] [address] COMP METABOLIC PANEL Collected: 04/14/2018 Status: F Source: [place] 1:36 AM [facility] REPOSITORY TYPE CODE TESTS RESULT [...] mg/dL Glucose High 128 Result Comment: The [place] Diabetes Association (ADA) provides guidance for cutoff [...] Standards of Medical Care in Diabetes 2016, [place] Diabetes Association. Diabetes Care. 2016.39(Suppl 1). LAB [...] GFR. Performed By: #### CBC, CMP #### [facility] [address] [place], [place] [address] GASA + ALL Collected: 04/13/2018 Status: F Source: [place] FOR 11:27 PM [facility] RADIANCE USE ONLY REPOSITORY TYPE CODE TESTS [...] Lactate 0.6 Performed By: #### ALLBG #### [facility] [address] [place], [place] [address] GASA + ALL Collected: 04/13/2018 Status: F Source: [place] FOR 8:18 PM [facility] RADIANCE USE ONLY REPOSITORY TYPE CODE TESTS [...] Lactate 0.6 Performed By: #### ALLBG #### [facility] [address] [place], [place] [address] CONSULT PROG Observed: 04/13/2018 Status: COMPLETED Source: [place] 5:45 PM [facility] REPOSITORY HNO ID: [id number] Author: Marita Baptiste Service: Infectious Disease Author Type: Physician Type: Consult Progress Note Filed: 04/13/2018 5:48 PM Note Text: INFECTIOUS DISEASE CONSULT SERVICE PROGRESS NOTE Date: April 13, 2018 Patient Name: Cesar George Jr. Interval Events: Underwent CABG on 04/12/18 Extubated on NC Sleepy but arousable, answers questions Denies complaints [...] mg injection 100 mcg INTRAVENOUS PRN fentaNYL ORNAMENT SETTER 20 mcg/mL in NaCl 0.9% 100 mL [...] Baptiste MD Staff physician Infectious Diseases Pager: [phone] Date and Time of Service: April 13, 2018 / GASA + ALL Collected: 04/13/2018 Status: F Source: [place] FOR 5:19 PM [facility] RADIANCE USE ONLY REPOSITORY TYPE CODE TESTS [...] Lactate 0.7 Performed By: #### ALLBG #### [facility] [address] [place], [place] [address] GASV + ALL Collected: 04/13/2018 Status: F Source: [place] 2:41 PM [facility] REPOSITORY TYPE CODE TESTS RESULT [...] Javon [id number] LAB VCBTME Notify Time, Javon Performed By: #### VALLBG #### [facility] [address] [place] [address] CONSULT Observed: 04/13/2018 Status: COMPLETED Source: [place] 2:17 PM [facility] REPOSITORY HNO ID: [id number] Author: Radha Singh Service: Endocrinology Author Type: Nurse Practitioner Type: Consults Filed: 04/13/2018 6:32 PM Note Text: INITIAL CONSULT ENDOCRINOLOGY SERVICE DATE: 04/13/2018 SERVICE TIME: 2:17 PM Requesting Provider: Sammy Zhu Opinion/Advice Regarding: Management of Diabetes Mellitus Type 2 hyperglycemia insulin dependent Service: DCT (Diabetes Care Team) Subjective HPI: Mr. Cesar George Josh is a 58 year old male with a 213 year history of Diabetes Mellitus Type 2 hyperglycemia (diagnosed 2004)who was admitted on 04/03/2018 transferred from OSH w/ NSTEMI. C diff positive at OSH. Now s/p CABG x 3 on 04/12/2018 Past medical history significant for HTN, CAD, CVA, PAD, PVD, and NSTEMI. Patient does Exercise. 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 Last HbA1c was 5.7%on 04/04/2018. He has a family history of diabetes in his mother, father, grandparents from both sides. He is followed by PCP for his diabetes at [place] Dr. Escalante. DIABETIC COMPLICATIONS: Retinopathy: Unspecified Neuropathy but relate that to stroke not DM/CVA in 2012 Cataracts Pre-Admission DM Regimen: Preadmission oral agents: None Preadmission insulin regimen: Lantus 20 units Q HS Humalog 12-20 units AC and Sliding scale ( I check my BG 2 hours after meal intake and use scale if ir is high). Self Monitoring Blood Glucose: Type of Monitor: [employer] Frequency of Monitoring: Three times a Day BG Values: 150-160 post meals at times in 200mg/dL Hypoglycemia: No but per primary note at times low 60 mg/dL PAST MEDICAL HISTORY Diagnosis Date - Cataract b/l, eye exam 05/29/13 - CTS (carpal tunnel syndrome) 10/2013 b/l, chronic, Dr. 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 Mazin Hinojosa Neuro, likely from DM and Vitamin B12 defic - Stroke ([facility]) 10/01/13 - Ulnar neuropathy 10/2013 b/l, chronic, [...] Alonzo Escalante 1,000 mcg at 03/20/18 1034 Prescriptions [...] Rfl: 3 Past Week at Unknown time BASAGLAR KWIKPEN U-100 INSULIN 100 unit/mL (3 [...] Rfl: 2 Past Week at Unknown time irncpmtiq-E5-[id number]-algal oil (METANX, ALGAL OIL,) 3 mg-35 mg-2 [...] mg injection 100 mcg INTRAVENOUS PRN fentaNYL ORNAMENT SETTER 20 mcg/mL in NaCl 0.9% 100 mL [...] Consult CDE regarding: DM Education including none ENTERPRISE INTEGRATION DEVELOPER to review MDI DM DISCHARGE PLAN: ? MDI insulin of Lantus and Humalog. ? Check blood sugars Three times a Day ? Diet: Heart Healthy Diet and CHO Controlled Diet ? Exercise as prescribed by cardiology ? Follow up with technician support engineer and orthotic practitioner as recommended. ? Patient will need follow-up with his home economic developer/PCP in 1-2 weeks after discharge. ? Diabetes Care Team Hospital Discharge Help Line: [phone] SIGNATURE: Radha Singh APRN.CNP PATIENT NAME: Cesar George Jr. DATE: April 13, 2018 TIME: 2:17 PM PAGER/CONTACT #: [phone] PROGRESS Observed: 04/13/2018 Status: COMPLETED Source: [place] 1:27 PM [facility] REPOSITORY [facility] ID: [id number] Author: Jazmin Garcia) Allan Service: Critical Care Author Type: Nurse Practitioner Type: Progress Notes Filed: 04/13/2018 1:29 PM Note Text: [facility] CVICU Note Name: Cesar George Jr. Coordination of Care Note: Indication [...] Encounter: Problem Nstemi (Non-St Elevated Myocardial Infarction) ([facility]) 04/12/2018 s/p CABGx3, MACK to LAD , SVG to PD pf CX , SVG to OM Coronary Artery Disease Involving [place] Coronary Artery of [place] Heart With Unstable Angina Pectoris ([facility]) 04/12/2018 s/p CABGx3, MACK to LAD , SVG to PD pf CX , SVG to OM CAD Core Measures: Aspirin: Yes Beta blockers: No - hypotension Statins: Reassess for Best Practices prior to hospital discharge Atelectasis A/P: Post-operative atelectasis. OOB, PEP and optimize pain control. Wean O2 as tolerated Hypotension A/P: Levophed infusion for MAPs 65-75. Wean as able. Cardiac Insufficiency ([facility]) A/P: Cardiac insufficiency coming off CPB requiring epinephrine infusion. Off this am, HD stable Post-Operative Pain A/P Pain well-controlled. Continue fentanyl ORNAMENT SETTER, scheduled lidoderm patches and tylenol, prn oxycodone [...] needed: No SIGNATURE: Jazmin Lemus CNP pager [phone] DATE of SERVICE: 04/13/2018 TIME of SERVICE: 1:28 PM GASA + ALL Collected: 04/13/2018 Status: F Source: [place] FOR 12:08 PM [facility] USE ONLY REPOSITORY TYPE CODE TESTS RESULT [...] Art [id number] LAB ACBTME Notify Time, Art [id number] Performed By: #### ALLBG #### [facility] [address] [place], [place] [address] GASV + ALL Collected: 04/13/2018 Status: F Source: [place] 10:14 AM [facility] REPOSITORY TYPE CODE TESTS RESULT [...] Lactate 1.4 Performed By: #### VALLBG #### [facility] [address] [place] [address] GASA + ALL Collected: 04/13/2018 Status: F Source: [place] FOR 8:49 AM [facility] RADIANCE USE ONLY REPOSITORY TYPE CODE TESTS [...] Lactate 1.0 Performed By: #### ALLBG #### [facility] [address] [place] [address] CASE MANAGEM Observed: 04/13/2018 Status: COMPLETED Source: [place] 7:59 AM [facility] REPOSITORY HNO ID: [id number] Author: Stephen (Rn) LIN Kelley Service: Case [...] accordingly. SIGNATURE: Stephen Kelley RN PATIENT NAME: Cesar George Jr. DATE: April 13, 2018 TIME: 7:59 AM PAGER/CONTACT #: [phone] GASV + ALL Collected: 04/13/2018 Status: F Source: [place] 5:06 AM [facility] REPOSITORY TYPE CODE TESTS RESULT [...] Lactate 1.0 Performed By: #### VALLBG #### [facility] [address] [place], [place] [address] GASA + ALL Collected: 04/13/2018 Status: F Source: [place] FOR 5:03 AM [facility] RADIANCE USE ONLY REPOSITORY TYPE CODE TESTS [...] Lactate 0.9 Performed By: #### ALLBG #### [facility] [address] [place], [place] [address] GASV + ALL Collected: 04/13/2018 Status: F Source: [place] 3:00 AM [facility] REPOSITORY TYPE CODE TESTS RESULT [...] Lactate 0.9 Performed By: #### VALLBG #### [facility] [address] [place], [place] [address] GASA + ALL Collected: 04/13/2018 Status: F Source: [place] FOR 2:58 AM [facility] RADIANCE USE ONLY REPOSITORY TYPE CODE TESTS [...] Lactate 0.8 Performed By: #### ALLBG #### [facility] [address] [place], [place] [address] CBC Collected: 04/13/2018 Status: F Source: [place] 2:55 AM [facility] REPOSITORY TYPE CODE TESTS RESULT [...] Performed By: #### CBC, CMP, COLTON #### [facility] [address] [place], [place] [address] COMP METABOLIC PANEL Collected: 04/13/2018 Status: F Source: [place] 2:55 AM [facility] [place] REPOSITORY TYPE CODE TESTS RESULT OUT OF REFERENCE UNITS RANGE LAB TP 6.3-8.0 g/dL Low Protein, Total 5.5 LAB ALB 3.9-4.9 g/dL Low Albumin 3.8 LAB CA 8.5-10.2 mg/dL Calcium, Total 8.5 LAB TBIL 0.2-1.3 mg/dL Bilirubin, Total 0.6 LAB ALKP 36-108 U/L Low Alkaline Phosphatase 35 LAB AST 14-40 U/L AST 39 LAB GLU 74-99 mg/dL Glucose High 113 Result Comment: The [place] Diabetes Association (ADA) provides guidance for cutoff [...] Standards of Medical Care in Diabetes 2016, [place] Diabetes Association. Diabetes Care. 2016.39(Suppl 1). LAB [...] Performed By: #### CBC, CMP, COLTON #### [facility] [address] [place], [place] [address] TROPONIN T Collected: 04/13/2018 Status: F Source: [place] 2:55 AM [facility] REPOSITORY TYPE CODE TESTS RESULT OUT OF REFERENCE UNITS RANGE LAB TROPT 0.000-0.029 ng/mL High Troponin T 0.274 Result Comment: Called to and read back by: Dorene Irwin 04/13/18 Bertrand Benites Performed By: #### CBC, CMP, COLTON #### [facility] [address] [place], [place] [address] XR CHEST 1V FRONTAL Observed: 04/13/2018 Status: F Source: [facility] 1:52 AM [facility] REPOSITORY * * *Final Report* * * DATE OF EXAM: Apr 13 2018 1:52AM REJI [id number] - XR CHEST 1V FRONTAL PORT [...] Gaseous distention of the stomach is noted. Turning And Beading Machine Operator: PSCB Transcribe Date/Time: Apr 13 2018 7:05A Dictated by : FROYLAN FREEMAN MD This examination was interpreted and the report reviewed and electronically signed by: FROYLAN FREEMAN MD on Apr 13 2018 7:06AM EST [id number] GASV + ALL Collected: 04/13/2018 Status: F Source: [place] 12:50 AM [facility] REPOSITORY TYPE CODE TESTS RESULT [...] Lactate 1.4 Performed By: #### VALLBG #### [facility] [address] [place], [place] [address] GASA + ALL Collected: 04/13/2018 Status: F Source: [place] FOR 12:47 AM [facility] RADIANCE USE ONLY REPOSITORY TYPE CODE TESTS [...] Lactate 1.2 Performed By: #### ALLBG #### [facility] [address] [place], [place] [address] PROGRESS Observed: 04/12/2018 Status: COMPLETED Source: [place] 11:10 PM [facility] REPOSITORY HNO ID: [id number] Author: Roger Moura (Licensed Optical Dispenser) JAYE Theodore Service: (none) Author Type: Respiratory Therapist Type: Progress Notes Filed: 04/12/2018 11:10 PM Note Text: ENTERPRISE INTEGRATION DEVELOPER ware at bedside . Ok to extubate. GASA + ALL Collected: 04/12/2018 Status: F Source: [place] FOR 11:02 PM [facility] USE ONLY REPOSITORY TYPE CODE TESTS RESULT [...] Lactate 1.9 Performed By: #### ALLBG #### [facility] [address] [place], [place] [address] GASA + ALL Collected: 04/12/2018 Status: F Source: [place] FOR 10:17 PM [facility] USE ONLY REPOSITORY TYPE CODE TESTS RESULT [...] Lactate 1.7 Performed By: #### ALLBG #### [facility] [address] [place] [address] GASV + ALL Collected: 04/12/2018 Status: F Source: [place] 10:14 PM [facility] [place] REPOSITORY TYPE CODE TESTS RESULT OUT OF [...] High 2.5 Performed By: #### VALLBG #### [facility] [address] [place], [place] [address] PROGRESS Observed: 04/12/2018 Status: COMPLETED Source: [place] 9:03 PM [facility] REPOSITORY HNO ID: [id number] Author: Pascual Ware Service: Critical Care Author Type: Nurse Practitioner Type: Progress Notes Filed: 04/12/2018 9:04 PM Note Text: [facility] CVICU Admission Note Name: Cesar Jayy George Jr. Principal Diagnosis: 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 (HCC) Indication for Surgery: Coronary Artery Disease LVEF: [...] Problems Problem Nstemi (Non-St Elevated Myocardial Infarction) ([facility]) 04/12/2018 s/p CABGx3, MACK to LAD , SVG to PD pf CX , SVG to OM Coronary Artery Disease Involving [place] Coronary Artery of [place] Heart With Unstable Angina Pectoris ([facility]) 04/12/2018 s/p CABGx3, MACK to LAD , SVG to PD pf CX , SVG to OM CAD Core Measures: Aspirin: Yes Beta blockers: No - due to not indicated at this time Statins: Reassess for Best Practices prior to hospital discharge On Mechanically Assisted Ventilation ([facility]) A/P: Grade I airway. WTE. Postoperative Hypertension A/P: Hypertensive postoperatively, NTG infusion started. Wean for MAPs 65-75. Cardiac Insufficiency ([facility]) A/P: Cardiac insufficiency coming off CPB requiring epinephrine infusion. Wean as able. Lower Back Pain A/P: on Neurontin and zanaflex preoperatively. Will restart once extubated and taking PO. C. Difficile Colitis A/P: C. Diff positive at OSH. Per ID recs, continue PO vancomycin. Post-Operative Pain A/P: Optimize pain control with IVP fentanyl AND lidocaine patches. Fentanyl ORNAMENT SETTER AND PRN oxycodone once extubated. Hyperlipidemia A/P: [...] AUREUS PCR Collected: 04/12/2018 Status: F Source: [place] 9:00 PM [facility] REPOSITORY TYPE CODE TESTS RESULT OUT OF RANGE REFERENCE UNITS LAB SASRC Nasal S aureus Spec Source LAB MRSRES Negative for MRSA MRSA by PCR. PCR LAB SARES Positive for Abnormal Staph Staphylococcus Alert aureus PCR aureus by PCR. Performed By: #### SAPCR #### [facility] [address] [place], [place] [address] GASV + ALL Collected: 04/12/2018 Status: F Source: [place] 8:51 PM [facility] REPOSITORY TYPE CODE TESTS RESULT [...] High 2.6 Performed By: #### VALLBG #### [facility] [address] [place], [place] [address] XR CHEST 1V FRONTAL Observed: 04/12/2018 Status: F Source: [facility] 8:33 PM [facility] REPOSITORY * * *Final Report* * * DATE OF EXAM: Apr 12 2018 8:33PM REJI [id number] - XR CHEST 1V FRONTAL PORT [...] Cardiomediastinal silhouette: Stable cardiomediastinal silhouette. Other: . Turning And Beading Machine Operator: PSCB Transcribe Date/Time: Apr 12 2018 8:48P Dictated by : JODY HDZ MD This examination was interpreted and the report reviewed and electronically signed by: JODY HDZ MD on Apr 12 2018 8:49PM EST [id number] Collected: 04/12/2018 Status: F Source: [place] 8:30 PM [facility] REPOSITORY TYPE CODE TESTS RESULT [...] By: #### CBC, FIBCT, PT, PTT #### [facility] [address] [place], [place] [address] FIBRINOGEN Collected: 04/12/2018 Status: F Source: [place] 8:30 PM [facility] REPOSITORY TYPE CODE TESTS RESULT OUT OF REFERENCE UNITS RANGE LAB FIBCT 200-400 mg/dL Fibrinogen 208 Performed By: #### CBC, FIBCT, PT, PTT #### [facility] [address] [place], [place] [address] PROTIME Collected: 04/12/2018 Status: F Source: [place] 8:30 PM [facility] REPOSITORY TYPE CODE TESTS RESULT OUT OF RANGE REFERENCE UNITS LAB PSEC 9.7-13.0 sec PT Sec 12.4 LAB INR 0.9-1.3 PT INR 1.2 Result Comment: Vitamin K Antagonist (VKA) Therapeutic Range: INR 2 to 3 (Target INR of 2.5) Note: For patients treated with VKA drugs, such as warfarin, the [place] College of Chest Physicians 2012 Guideline recommends [...] to 3.5 (target INR of 3). Michael JASMINE, et al. Chest 2012, 141:7S-47S David RA, et al. [facility] 2017, 70: 252-289 Performed By: #### CBC, FIBCT, PT, PTT #### [facility] [address] [place], [place] [id number] APTT Collected: 04/12/2018 Status: F Source: [place] 8:30 PM [facility] REPOSITORY TYPE CODE TESTS RESULT [...] laboratory APTT reagent in use throughout the [facility]. Performed By: #### CBC, FIBCT, PT, PTT #### [facility] [address] [place] [id number] ANES POST Observed: 04/12/2018 Status: COMPLETED Source: [place] 8:24 PM [facility] REPOSITORY HNO ID: [id number] Author: Sergio De MD Service: Anesthesiology Author Type: Anesthesiologist Type: Anesthesia PostOp Filed: 04/12/2018 8:25 PM Note Text: POST ANESTHESIA EVALUATION NOTE SERVICE DATE: 04/12/2018 SERVICE TIME: 8:25 PM : 1960 Vitals: 04/11/188 04/12/1835804/12/18 0704/12/181099 Temp: 36.8 ?C (98.2 ?F) 36.5 ?C (97.7 ?F) 36.6 ?C (97.9 ?F) 36.6 ?C (97.9 ?F) 04/12/1835804/12/1869904/12/18109904/12/182011 Arterial BP 1: 102/54 BP: 113/62 108/69 98/60 04/12/18 0700 04/12/18 1100 04/12/18201104/12/182014 Pulse: 75 67 84 85 04/12/1835804/12/18 0704/12/18109904/12/182014 Resp: 14 17 18 18 04/12/18 0700 04/12/18 1100 04/12/18201104/12/182014 SpO2: 94% 96% 100% 100% Validated Vital [...] Remarks: SIGNATURE: Sergio De MD PATIENT NAME: Cesar George Jr. DATE: April 12, 2018 TIME: 8:24 PM PAGER/CONTACT #: [phone] GASA + ALL Collected: 04/12/2018 Status: F Source: [place] FOR 8:22 PM [facility] USE ONLY REPOSITORY TYPE CODE TESTS RESULT [...] Lactate 1.8 Performed By: #### ALLBG #### [facility] [address] [place], [place] [address] ECG COMPLETE W Observed: 04/12/2018 Status: F Source: [place] INTERPRETATION 8:15 PM [facility] REPOSITORY NAME : CESAR GEORGE PID : [id number] : 1960 Gender : Male Race : ORD : [id number] Procedure Date : Apr 12 2018 20:15:55 [...] ms QTC Calculation(Bezet) : 454 ms P [place] : 53 degrees R [place] : 8 degrees T [place] : -11 degrees Test Reason : CAD Location : 367 : [facility] By : Carlos Powers Edited By : Carlos Powers Referred By : , Acquired by : [id number], BRIEF OP NOT Observed: 04/12/2018 Status: COMPLETED Source: [place] 7:53 PM [facility] REPOSITORY HNO ID: [id number] Author: Dee Duke (Fel) Service: Cardiac Surgery Author Type: Fellow Type: Brief Op Note Filed: 04/12/2018 7:54 PM Note Text: CARDIOTHORACIC BRIEF OP NOTE LOG ID: [id number] SURGERY/PROCEDURE DATE: 04/12/2018 INCISION/PROCEDURE START TIME: 3:02 PM INCISION CLOSE/PROCEDURE END TIME: SURGEON(S) AND GRISTMILLER(S): Surgeon(s) and Role: * Sammy Zhu - Primary * Dee Duke (Fel) - Fellow Registered Nurse Personnel Counselor: Andres (Rn) Franchesca RN; Ralph (Human Resources Operations Specialist) AARON Vargas; Roberta (Rn) LIN Cain PROCEDURES [...] None SIGNATURE: Dee Duke MD PATIENT NAME: Cesar George Jr. DATE: April 12, 2018 TIME: 7:53 PM PAGER/CONTACT #: GASA + ALL Collected: 04/12/2018 Status: F Source: [place] FOR 7:44 PM [facility] RADIANCE USE ONLY REPOSITORY TYPE CODE TESTS [...] High 2.3 Performed By: #### ALLBG #### [facility] [address] [place], [place] [address] GASA + ALL Collected: 04/12/2018 Status: F Source: [place] FOR 7:07 PM [facility] RADIANCE USE ONLY REPOSITORY TYPE CODE TESTS [...] High 2.6 Performed By: #### ALLBG #### [facility] [address] [place], [place] [address] GASA + ALL Collected: 04/12/2018 Status: F Source: [place] FOR 6:45 PM [facility] RADIANCE USE ONLY REPOSITORY TYPE CODE TESTS [...] High 2.7 Performed By: #### ALLBG #### [facility] [address] [place], [place] [address] GASA + ALL Collected: 04/12/2018 Status: F Source: [place] FOR 6:17 PM [facility] RADIANCE USE ONLY REPOSITORY TYPE CODE TESTS [...] Lactate 1.3 Performed By: #### ALLBG #### [facility] [address] [place], [place] [address] GASA + ALL Collected: 04/12/2018 Status: F Source: [facility] 5:41 PM [facility] RADIANCE USE ONLY REPOSITORY TYPE [...] Lactate 0.9 Performed By: #### ALLBG #### [facility] [address] [place], [place] [address] GASV + ALL Collected: 04/12/2018 Status: F Source: [place] 5:10 PM [facility] REPOSITORY TYPE CODE TESTS RESULT [...] Lactate 1.0 Performed By: #### VALLBG #### [facility] [address] [place], [place] [address] GASA + ALL Collected: 04/12/2018 Status: F Source: [place] FOR 5:07 PM [facility] RADIANCE USE ONLY REPOSITORY TYPE CODE TESTS [...] Lactate 0.9 Performed By: #### ALLBG #### [facility] [address] [place], [place] [address] GASA + ALL Collected: 04/12/2018 Status: F Source: [place] FOR 2:27 PM [facility] RADIANCE USE ONLY REPOSITORY TYPE CODE TESTS [...] Time, Art Performed By: #### ALLBG #### [facility] [address] [place], [place] [address] PROGRESS Observed: 04/12/2018 Status: COMPLETED Source: [place] 1:07 PM [facility] REPOSITORY HNO ID: [id number] Author: Zoe Rodriguez Service: Cardiovascular Medicine Author Type: Physician Type: Progress Notes Filed: 04/12/2018 1:41 PM Note Text: [facility] CARDIOVASCULAR MEDICINE PROGRESS NOTE (Template ID [id number]) Cesar George Jr. [id number] PRIMARY SERVICE: Hvi Clinical Cardiology [facility] [...] -- 1.9 IMAGING Reviewed ASSESSMENT AND PLAN Cesar George Jr. is a 57 year old [...] with staff Bl[place] Paul MD PGY1 [place] [address] [facility] ST[facility]FF PHYSICIAN NOTE OF PERSONAL INVOLVEMENT IN CARE Impression/Plan: Mr. George is a 57 yo with SNTEMI found to have severe multivessel CAD, being treated for CDiff (improved symptoms, cleared by ID for surgery), doing well. Scheduled for CABG later today. I have reviewed the documentation obtained and documented by the Fellow/Resident/ENTERPRISE INTEGRATION DEVELOPER/PA and have reviewed and updated the problem list as appropriate. I have personally performed a face to face assessment of the patient and have personally participated in the rubi components. I have discussed the case and management of the patient's care. STAFF PHYSICIAN: Zoe Rodriguez MD Date of Service: 04/12/18 URINALYSIS Collected: 04/12/2018 Status: F Source: [place] 8:05 AM [facility] REPOSITORY TYPE CODE TESTS RESULT OUT OF REFERENCE UNITS RANGE LAB UCOL Yellow Color Yellow LAB [facility] Clear Clarity Clear LAB UGLUC Negative mg/dL Glucose, Urine Negative LAB UBIL Negative Bilirubin, Urine Negative LAB UKET Negative Ketones, Urine Negative LAB USPG 1.005-1.030 Specific [place], Ur 1.010 LAB UHGB Negative Hemoglobin/Blood, Negative Ur LAB UPH 4.5-8.0 pH 6.0 LAB UPROT Negative mg/dL Protein, Urine Negative LAB UUROB Normal Urobilinogen Normal LAB UNITR Negative Nitrites Negative LAB ULKEST Negative Leukest Negative LAB UCOM Comments SEE COMMENT Result Comment: Microscopic not warranted LAB UMCOM Urine SEE Ap Comment COMMENT Result Comment: N/A Performed By: #### UA #### [facility] [address], [place] [address] PROTIME Collected: 04/12/2018 Status: F Source: [place] 3:48 AM [facility] REPOSITORY TYPE CODE TESTS RESULT OUT OF RANGE REFERENCE UNITS LAB PSEC 9.7-13.0 sec PT Sec 10.8 LAB INR 0.9-1.3 PT INR 1.0 Result Comment: Vitamin K Antagonist (VKA) Therapeutic Range: INR 2 to 3 (Target INR of 2.5) Note: For patients treated with VKA drugs, such as warfarin, the [place] [employer]icians 2012 Guideline recommends [...] Chest 2012, 141:7S-47S David RA, et al. [facility] 2017, 70: 252-289 Performed By: #### PT, CBC, BMP #### [facility] [address] [place], [place] [address] CBC Collected: 04/12/2018 Status: F Source: [place] 3:48 AM [facility] REPOSITORY TYPE CODE TESTS RESULT [...] Performed By: #### PT, CBC, BMP #### [facility] [address] [place], [place] [address] BASIC METABOLIC PANL Collected: 04/12/2018 Status: F Source: [place] 3:48 AM [facility] REPOSITORY TYPE CODE TESTS RESULT OUT OF REFERENCE UNITS RANGE LAB GLU 74-99 mg/dL High Glucose 195 Result Comment: The [place] Diabetes Association (ADA) provides guidance for cutoff [...] Standards of Medical Care in Diabetes 2016, [place] [employer]. Diabetes Care. 2016.39(Suppl 1). LAB [...] Performed By: #### PT, CBC, BMP #### [place] [address] OPERATIVE NO Observed: 04/12/2018 Status: COMPLETED Source: [place] 12:[address] [facility] REPOSITORY HNO ID: [id number] Author: Sammy Zhu Service: Cardiac Surgery Author Type: Physician Type: Operative Report Filed: 04/19/2018 3:33 PM Note Text: [place] [address] [place] OPERATIVE REPORT NAME: CESAR GEORGE [facility] #: [id number] DATE: 04/12/2018 AGE: 57 SURGEON 1: Sammy Zhu M.D. SURGEON 2: GRISTMILLER 1: Dr. Dee Duke GRISTMILLER 2: AARON Murillo No qualified residents available. [...] DRAINS: Mediastinal, left pleural. Sammy Zhu M.D. OLSEN:[id number] /[id number] cc: OPERATIVE NO Observed: 04/12/2018 Status: COMPLETED Source: [place] 12:00 AM [facility] REPOSITORY [facility] ID: [id number] Author: Sammy Zhu Service: Cardiac Surgery Author Type: Physician Type: Operative Report Filed: 04/22/2018 6:06 PM Note Text: [place] [address] [place] OPERATIVE REPORT NAME: CESAR GEORGE [facility] #: [id number] DATE: 04/12/2018 AGE: 58 [address]SURGEON 1: Sammy Zhu M.D. SURGEON 2: GRISTMILLER 1: Dee Duke M.D. GRISTMILLER 2: Andres Sorensen R.N. No qualified residents [...] Close/Procedure End Time: 20:00. Sammy Zhu M.D. OLSEN:[id number]:04/20/2018 /[id number] cc: PTT,ANTICOAG THERAPY Collected: 04/11/2018 Status: F Source: [place] 10:40 PM [facility] [place] REPOSITORY TYPE CODE TESTS RESULT OUT OF [...] laboratory APTT reagent in use throughout the [facility]. Performed By: #### PTTAC #### [facility] [address] [place] [address] TROPONIN T Collected: 04/11/2018 Status: F Source: [place] 5:14 PM [facility] REPOSITORY TYPE CODE TESTS RESULT OUT OF REFERENCE UNITS RANGE LAB TROPT 0.000-0.029 ng/mL High Troponin T 0.041 Result Comment: Urgent value previously called 04/11/17 1414 Performed By: #### COLTON #### [facility] [address] [place], [place] [address] ANES PREOP Observed: 04/11/2018 Status: COMPLETED Source: [place] 4:00 PM [facility] REPOSITORY HNO ID: [id number] Author: Fernando Schneider Service: Anesthesiology Author Type: [...] eye exam 05/29/13 - DM (diabetes mellitus) ([facility]) Diagnosed in 2004 - Mild atherosclerosis of both carotid arteries 05/2016 ICA b/l 20-39% - Polyneuropathy ([facility]) 10/2013 axon loss, Dr. Mazin Hinojosa Neuro, likely from DM and Vitamin B12 defic - Stroke ([facility]) 10/01/13 - Ulnar neuropathy 10/2013 b/l, chronic, [...] arteries, precluding precise assessment with CT. - [place] AMOS and ARAIVND are normal size vessels ?without evidence of [...] scheduled. SIGNATURE: Fernando Schneider DO PATIENT NAME: Cesar George Jr. DATE: April 11, 2018 TIME: 4:00 PM PAGER/CONTACT #: TYPE AND SCREEN Collected: 04/11/2018 Status: F Source: [place] 1:20 PM [facility] REPOSITORY TYPE CODE TESTS RESULT OUT OF REFERENCE UNITS RANGE LAB %ABR B ABO/RH(D) POSITIVE LAB % Antibody NEG Screen Performed By: #### TSCR #### [facility] [address] [place], [place] [address] OSMOLALITY, URINE Collected: 04/11/2018 Status: F Source: [place] 12:30 PM [facility] REPOSITORY TYPE CODE TESTS RESULT OUT OF RANGE REFERENCE UNITS LAB UOSM 50-1200 mOsm/kg 234 Osmolality, Urine Performed By: #### UOSM #### [facility] [address] [place] [id number] CONSULT PROG Observed: 04/11/2018 Status: COMPLETED Source: [place] 10:14 AM [facility] REPOSITORY HNO ID: [id number] Author: Mercedes Dougherty) Raffaele Service: Cardiac Surgery Author Type: Nurse Practitioner Type: Consult Progress Note Filed: 04/11/2018 10:16 AM Note Text: [facility] PROGRESS NOTE Cesar George Jr. [id number] CTS staff Dr. Sims Intended surgery: CABG Date of surgerry: Tomorrow 2nd round. Patient is aware. Dr. Zhu to see patient prior to surgery. Update type and screen CT anesthesia to see patient ASSESSMENT AND PLAN: Problem Preop Testing [facility] VASCULAR CLARENCE PRE-OP CHECKLIST Surgeon: Sammy Zhu M.D. Informed [...] Surgical prep: Yes SIGNATURE: Mercedes Montalvo RN APRN.BILINGUAL KINDERGARTEN TEACHER CHECKED BY: DATE of SERVICE: 2018 TIME of SERVICE: 11:17 AM I Informed patient what to expect pre/post operatively Stressed to patient the importance of pain control for successful recovery: INFORMED OF IMPORTANCE OF GOOD PAIN LTAPOIU-[id number]-bdt for pain medication early when pain level is 2/0-10Informed patient (and family) what to expect pre/post operatively IMPORTANCE OF PAIN HHFEGEK-FVDAPRBPFL-xbt for pain medication early, take pain medication [...] after being discharged if lived in near [place], [place] area or within [address] of [place], [place]. Discussed with Patient (Family) will need to see their PCP and Musical String Maker? following discharged- specific time frames for postop visits for Cardiac Surgery Nurse Practitioner, PCP and Musical String Maker will be discussed at time of discharged. Patient (Family) Verbalized understanding. SIGNATURE: Mercedes Montalvo RN APRN.BILINGUAL KINDERGARTEN TEACHER PAGER: [phone] DATE of SERVICE: 04/11/2018 TIME of SERVICE:10:16 AM PROGRESS Observed: 04/11/2018 Status: COMPLETED Source: [place] 10:07 AM [facility] REPOSITORY O ID: [id number] Author: Zoe Rodriguez Service: Cardiovascular Medicine Author Type: Physician Type: Progress Notes Filed: 04/11/2018 10:18 AM Note Text: [facility] CARDIOVASCULAR MEDICINE PROGRESS NOTE (Template ID [id number]) Cesar George Jr. [id number] PRIMARY SERVICE: Hvi Clinical Cardiology [facility] [...] -- 1.9 IMAGING Reviewed ASSESSMENT AND PLAN Cesar George Jr. is a 57 year old [...] with staff Arturo Mcmahan PGY-2, Internal Medicine [id number] [facility]FF PHYSIC[facility] NOTE OF PERSONAL INVOLVEMENT IN CARE Impression/Plan: Mr. 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 Zhu, possibly tomorrow. I have reviewed the documentation obtained and documented by the Fellow/Resident/ENTERPRISE INTEGRATION DEVELOPER/PA and have reviewed and updated the problem list as appropriate. I have personally performed a face to face assessment of the patient and have personally participated in the rubi components. I have discussed the case and management of the patient's care. STAFF PHYSICIAN: Zoe Rodriguez MD Date of Service: 04/11/18 ECG COMPLETE W Observed: 04/11/2018 Status: F Source: [place] INTERPRETATION 7:35 AM [facility] REPOSITORY NAME : CESAR GEORGE PID : [id number] : 1960 Gender : Male Race : ORD : [id number] Procedure Date : Apr 11 2018 07:35:44 Edit Date : Apr 13 2018 15:44:56 Diagnosis:NORMAL SINUS RHYTHM NORMAL ECG Confirmed by Tomi STACK M.D. (22) on 04/13/2018 3:36:44 PM Ventricular Rate : 74 BPM Atrial Rate : 74 BPM P-R Interval : 188 ms QRS Duration : 90 ms Q-T Interval : 406 ms QTC Calculation(Bezet) : 450 ms P [place] : 45 degrees R [place] : -7 degrees T [place] : 25 degrees Test Reason : CAD Location : 361 : [id number] Overread By : Tomi STACK M.D. Edited By : Tomi STACK M.D. Referred By : , Acquired by : JAXON GONZALES Collected: 04/11/2018 Status: F Source: [place] 5:42 AM [facility] REPOSITORY TYPE CODE TESTS RESULT OUT OF RANGE REFERENCE UNITS LAB PSEC 9.7-13.0 sec PT Sec 10.6 LAB INR 0.9-1.3 PT INR 1.0 Result Comment: Vitamin K Antagonist (VKA) Therapeutic Range: INR 2 to 3 (Target INR of 2.5) Note: For patients treated with VKA drugs, such as warfarin, the [place] [employer] 2012 Guideline recommends [...] Chest 2012, 141:7S-47S David RA, et al. [facility] 2017, 70: 252-289 Performed By: #### PT, BMP, CBC #### [facility] [address] [address] BASIC METABOLIC PANL Collected: 04/11/2018 Status: F Source: [place] 5:42 AM [facility] REPOSITORY TYPE CODE TESTS RESULT OUT OF REFERENCE UNITS RANGE LAB GLU 74-99 mg/dL High Glucose 106 Result Comment: The [place] Diabetes Association (ADA) provides guidance for cutoff [...] Standards of Medical Care in Diabetes 2016, [place] [employer]. Diabetes Care. 2016.39(Suppl 1). LAB [...] Performed By: #### PT, BMP, CBC #### [facility] [address] [place], [place] [address] CBC Collected: 04/11/2018 Status: F Source: [place] 5:42 AM [facility] REPOSITORY TYPE CODE TESTS RESULT [...] Performed By: #### PT, BMP, CBC #### [facility] [address] [place], [place] [address] TROPONIN T Collected: 04/11/2018 Status: F Source: [place] 5:42 AM [facility] REPOSITORY TYPE CODE TESTS RESULT OUT OF REFERENCE UNITS RANGE LAB TROPT 0.000-0.029 ng/mL High Troponin T 0.070 Result Comment: Called to and read back by: Padmini Stern 04/11/2018 Maricel Gandhi Performed By: #### COLTON #### [facility] [address] [place], [place] [address] BASIC METABOLIC PANL Collected: 2018 Status: F Source: [place] 7:24 PM [facility] REPOSITORY TYPE CODE TESTS RESULT OUT OF REFERENCE UNITS RANGE LAB GLU 74-99 mg/dL High Glucose 252 Result Comment: The [place] Diabetes Association (ADA) provides guidance for cutoff [...] Standards of Medical Care in Diabetes 2016, [place] [employer]. Diabetes Care. 2016.39(Suppl 1). LAB [...] actual GFR. Performed By: #### BMP #### [facility] [address] [place], [place] [address] CONSULT PROG Observed: 2018 Status: COMPLETED Source: [place] 12:43 PM [facility] REPOSITORY O ID: [id number] Author: Mercedes Montalvo Service: Cardiac Surgery Author Type: Nurse Practitioner Type: Consult Progress Note Filed: 2018 5:44 PM Note Text: [facility] PROGRESS NOTE Cesar George Jr. [id number] CTS staff Dr. Sammy Zhu Intended surgery: CABG PI: Conduit: Right HAND DOMINANT: poor PI 10%/poor waveform Left PI: unusable prior radial artery surgery. Per Dr. Zhu surgery: this Thursday 04/12 , confirmed with CT campus recruiter Preop testing is complete. Cleared by ID to proceed with surgery. Normal BM. I have updated Dr. Sims and CTS campus recruiter that patient is ready for surgery. ASSESSMENT AND PLAN: Problem Preop Testing [facility] and [facility] PRE-OP CHECKLIST Surgeon: Sammy Zhu M.D. Informed [...] Surgical prep: Yes SIGNATURE: Mercedes Montalvo RN PATTERN MAKER.BILINGUAL KINDERGARTEN TEACHER CHECKED BY: DATE of SERVICE: 2018 TIME of SERVICE: 11:17 AM SIGNATURE: Mercedes Montalvo RN PATTERN MAKER.BILINGUAL KINDERGARTEN TEACHER PAGER:[phone] DATE of SERVICE: 2018 TIME of SERVICE: 12:46 PM CASE MANAGEM Observed: 2018 Status: COMPLETED Source: [place] 11:53 AM [facility] REPOSITORY HNO ID: [id number] Author: Fabiola (Rn) LIN Anders Service: Care [...] accordingly. SIGNATURE: Fabiola Anders RN PATIENT NAME: Cesar George Jr. DATE: 2018 TIME: 11:53 AM PAGER/CONTACT #: [phone] ECG COMPLETE W Observed: 2018 Status: F Source: [place] INTERPRETATION 10:48 AM [facility] REPOSITORY NAME : CESAR GEORGE PID : [id number] : 1960 Gender : Male Race : ORD : [id number] Procedure Date : 2018 10:48:32 Edit Date : Apr 17 2018 16:37:05 Diagnosis:NORMAL SINUS RHYTHM NONSPECIFIC T WAVE ABNORMALITY ABNORMAL ECG Confirmed by PRUDENCIO ADAMS M.D. ([id number]) on 04/17/2018 4:15:14 PM Ventricular Rate : 75 BPM Atrial Rate : 75 BPM P-R Interval : 190 ms QRS Duration : 98 ms Q-T Interval : 400 ms QTC Calculation(Bezet) : 446 ms P [place] : 35 degrees R [place] : -12 degrees T [place] : 266 degrees Test Reason : CAD Location : 361 : J61 13 Overread By : PRUDENCIO ADAMS M.D. Edited By : PRUDENCIO ADAMS M.D. Referred By : , Acquired by : CHANDRIKA MORIN PROGRESS Observed: 2018 Status: COMPLETED Source: [place] 8:37 AM [facility] REPOSITORY HNO ID: [id number] Author: Zoe Rodriguez Service: Cardiovascular Medicine Author Type: Physician Type: Progress Notes Filed: 2018 12:18 PM Note Text: [facility] CARDIOVASCULAR MEDICINE PROGRESS NOTE (Template ID [id number]) Cesar George JrJosh [id number] PRIMARY SERVICE: Hvi Clinical Cardiology A HOSPITAL [...] -- 1.9 IMAGING Reviewed ASSESSMENT AND PLAN Cesar George Jr. is a 57 year old [...] up CTS plans for surgery - page ENTERPRISE INTEGRATION DEVELOPER Mercedes Montalvo - Hold IVF today as I/Os [...] staff Blanco Paul MD IM PGY-1 pgr [phone] [facility] ST[facility] PHYSIC[facility] NOTE OF PERSONAL INVOLVEMENT IN CARE Impression/Plan: Mr. 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 Zhu, hopefully this week. I have reviewed the documentation obtained and documented by the Fellow/Resident/ENTERPRISE INTEGRATION DEVELOPER/PA and have reviewed and updated the problem list as appropriate. I have personally performed a face to face assessment of the patient and have personally participated in the rubi components. I have discussed the case and management of the patient's care. STAFF PHYSICIAN: Zoe Rodriguez MD Date of Service: 04/10/18 CBC Collected: 2018 Status: F Source: [place] 6:12 AM [facility] REPOSITORY TYPE CODE TESTS RESULT [...] <0.01 Performed By: #### CBC, BMP #### [facility] [address] [place], [place] [address] BASIC METABOLIC PANL Collected: 2018 Status: F Source: [place] 6:12 AM [facility] REPOSITORY TYPE CODE TESTS RESULT OUT OF REFERENCE UNITS RANGE LAB GLU 74-99 mg/dL High Glucose 115 Result Comment: The [place] Diabetes [employer] (ADA) provides guidance for cutoff [...] Standards of Medical Care in Diabetes 2016, [place] [employer]. Diabetes Care. 2016.39(Suppl 1). LAB [...] GFR. Performed By: #### CBC, BMP #### [facility] [address] [id number] PROGRESS Observed: 04/09/2018 Status: COMPLETED Source: [place] 10:48 AM [facility] REPOSITORY HNO ID: [id number] Author: Van Mcguire Service: Cardiovascular Medicine Author Type: Physician Type: Progress Notes Filed: 04/09/2018 11:06 AM Note Text: [facility] CARDIOVASCULAR MEDICINE PROGRESS NOTE (Template ID [id number]) Cesar George Jr. [id number] PRIMARY SERVICE: Hvi Clinical Cardiology A [facility]OSPITAL [...] -- 1.9 IMAGING Reviewed ASSESSMENT AND PLAN Cesar George Jr. is a 57 year old [...] staff Froylan Watters MD IM PGY-2 04/09/2018 [facility] ST[facility]FF PHYSIC[facility] NOTE OF PERSONAL INVOLVEMENT IN [...] AM CBC Collected: 04/09/2018 Status: F Source: [place] 3:45 AM [facility] REPOSITORY TYPE CODE TESTS RESULT [...] Performed By: #### CBC, PT, CMP #### [facility] [address] [place], [place] [address] PROTIME Collected: 04/09/2018 Status: F Source: [place] 3:45 AM [facility] REPOSITORY TYPE CODE TESTS RESULT OUT OF RANGE REFERENCE UNITS LAB PSEC 9.7-13.0 sec PT Sec 10.7 LAB INR 0.9-1.3 PT INR 1.0 Result Comment: Vitamin K Antagonist (VKA) Therapeutic Range: INR 2 to 3 (Target INR of 2.5) Note: For patients treated with VKA drugs, such as warfarin, the [place] [employer] 2012 Guideline recommends [...] Chest 2012, 141:7S-47S David RA, et al. JAC 2017, 70: 252-289 Performed By: #### CBC, PT, CMP #### [facility] [address] [place], [place] [address] COMP METABOLIC PANEL Collected: 04/09/2018 Status: F Source: [place] 3:45 AM [facility] REPOSITORY TYPE CODE TESTS RESULT [...] mg/dL High Glucose 155 Result Comment: The [place] Diabetes [employer] (ADA) provides guidance for cutoff [...] Standards of Medical Care in Diabetes 2016, [place] [employer]. Diabetes Care. 2016.39(Suppl 1). LAB [...] Performed By: #### CBC, PT, CMP #### [facility] [address] [place], [place] [address] CONSULT PROG Observed: 04/08/2018 Status: COMPLETED Source: [place] 10:58 AM [facility] REPOSITORY HNO ID: [id number] Author: Marita Baptiste Service: Infectious Disease Author Type: Physician Type: Consult Progress Note Filed: 04/08/2018 7:03 PM Note Text: INFECTIOUS DISEASE CONSULT SERVICE PROGRESS NOTE Date: April 08, 2018 Patient Name: Cesar George Jr. Interval Events: Wbc normalized Afebrile [...] Baptiste MD Staff physician Infectious Diseases Pager: [phone] Date and Time of Service: April 08, 2018 / PROGRESS Observed: 04/08/2018 Status: COMPLETED Source: [place] 10:36 AM [facility] REPOSITORY HNO ID: [id number] Author: Van Mcguire Service: Cardiovascular Medicine Author Type: Physician Type: Progress Notes Filed: 04/08/2018 11:47 AM Note Text: [facility] CARDIOVASCULAR MEDICINE PROGRESS NOTE (Template ID [id number]) Cesar George JrJosh [id number] PRIMARY SERVICE: Hvi Clinical Cardiology A [facility]OSPITAL [...] -- 1.9 IMAGING Reviewed ASSESSMENT AND PLAN Cesar George Jr. is a 57 year old [...] with staff Blanco Paul MD IM PGY1 [id number] [facility] PH[facility] NOTE OF PERSONAL INVOLVEMENT IN CARE IMPRESSION: Patient is a 57 year old male with: #Coronary artery disease status post NSTEMI and found to have severe multivessel disease (I have reviewed his cardiac catheterization and have uploaded to [employer]) #PAD #Diabetes mellitus #Prior CVA #Mixed hyperlipidemia [...] AM CBC Collected: 04/08/2018 Status: F Source: [place] 7:06 AM [facility] [place] REPOSITORY TYPE CODE TESTS RESULT OUT OF [...] Performed By: #### CBC, PT, CMP #### [facility] [address], [place] [address] PROTIME Collected: 04/08/2018 Status: F Source: [place] 7:06 AM [facility] REPOSITORY TYPE CODE TESTS RESULT OUT OF RANGE REFERENCE UNITS LAB PSEC 9.7-13.0 sec PT Sec 10.7 LAB INR 0.9-1.3 PT INR 1.0 Result Comment: Vitamin K Antagonist (VKA) Therapeutic Range: INR 2 to 3 (Target INR of 2.5) Note: For patients treated with VKA drugs, such as warfarin, the [place] [employer] 2012 Guideline recommends [...] to 3.5 (target INR of 3). Michael JASMINE, et al. Chest 2012, 141:7S-47S David RA, et al. [facility] 2017, 70: 252-289 Performed By: #### CBC, PT, CMP #### [facility] [address] [place], [place] [address] COMP METABOLIC PANEL Collected: 04/08/2018 Status: F Source: [place] 7:06 AM [facility] REPOSITORY TYPE CODE TESTS RESULT OUT OF REFERENCE UNITS RANGE LAB TP 6.3-8.0 g/dL Protein, Total 6.4 LAB ALB 3.9-4.9 g/dL Low Albumin 3.3 LAB CA 8.5-10.2 mg/dL Calcium, Total 8.7 LAB TBIL 0.2-1.3 mg/dL Bilirubin, Total 0.3 LAB ALKP 36-108 U/L Alkaline Phosphatase 57 LAB AST 14-40 U/L AST 26 LAB GLU 74-99 mg/dL Glucose High 106 Result Comment: The [place] [employer] (ADA) provides guidance for cutoff [...] Standards of Medical Care in Diabetes 2016, [place] [employer]. Diabetes Care. 2016.39(Suppl 1). LAB [...] Performed By: #### CBC, PT, CMP #### [facility] [address] [place], [place] [address] CONSULT Observed: 04/07/2018 Status: COMPLETED Source: [place] 12:48 PM [facility] REPOSITORY HNO ID: [id number] Author: Marita Boudreaux) Emile Service: Infectious Disease Author Type: Physician Type: Consults Filed: 04/07/2018 9:29 PM Note Text: INITIAL CONSULT INFECTIOUS DISEASE GENERAL ID SERVICE SERVICE DATE: 04/07/2018 SERVICE TIME: 12:48 PM Patient: Cesar George Jr. Age: [age] year old Sex: [...] EMG - Diabetic retinopathy of both eyes ([facility]) eye exam 05/29/13 - DM (diabetes mellitus) ([facility]) Diagnosed in 2004 - Mild atherosclerosis of both carotid arteries 05/2016 ICA b/l 20-39% - Polyneuropathy ([facility]) 10/2013 axon loss, Dr. Mazin Hinojosa Neuro, likely from DM and Vitamin B12 defic - Stroke ([facility]) 10/01/13 - Ulnar neuropathy 10/2013 b/l, chronic, [...] this patient. Dara Bush Fellow, Infectious Diseases Pager:[phone] April 07, 2018 ID STAFF I evaluated [...] follow with you. Marita Baptiste MD Pager: [phone] April 07, 2018 PROGRESS Observed: 04/07/2018 Status: COMPLETED Source: [place] 12:30 PM [facility] REPOSITORY HNO ID: [id number] Author: Van Mcguire Service: Cardiovascular Medicine Author Type: Physician Type: Progress Notes Filed: 04/07/2018 2:21 PM Note Text: [facility] CARDIOVASCULAR MEDICINE PROGRESS NOTE (Template ID [id number]) Cesar George Jr. [id number] PRIMARY SERVICE: Hvi Clinical Cardiology A HOSPITAL [...] -- 1.9 IMAGING Reviewed ASSESSMENT AND PLAN Cesar George Jr. is a 57 year old [...] with staff Arturo Mcmahan PGY-2, Internal Medicine [id number] [facility] NOTE OF PERSONAL INVOLVEMENT IN CARE IMPRESSION: Patient is a 57 year old male with: #Coronary artery disease status post NSTEMI and found to have severe multivessel disease (I have reviewed his cardiac catheterization and have uploaded to [employer]) #PAD #Diabetes mellitus #Prior CVA #Mixed hyperlipidemia [...] PM NUTRITION Observed: 04/07/2018 Status: COMPLETED Source: [place] 12:21 PM [facility] REPOSITORY HNO ID: [id number] Author: Zulema Del Toro-T) Aury Service: Nutrition Therapy Author Type: Cook Pie Type: Nutrition Filed: 04/07/2018 12:34 PM Note [...] 2 units SIGNATURE: Arpit Hernandez PATIENT NAME: Cesar George Jr. DATE: April 07, 2018 TIME: 12:21 PM PAGER: [phone] THERAPY NT Observed: 04/07/2018 Status: COMPLETED Source: [place] 9:09 AM [facility] REPOSITORY HNO ID: [id number] Author: Josie Alonzo (Pt) Asp Service: Physical Therapy Author Type: Physical Therapist Type: Therapy (PT/OT/Speech/Resp) Filed: 04/07/2018 9:25 AM Note Text: Physical Therapy Evaluation SERVICE DATE: 04/07/2018 SERVICE TIME: 0810 to 0858 ROOM: [place] [address] Recommended Discharge Disposition: Outpatient Physical Therapy PT [...] symptoms and signs-other Interventions Provided: Evaluation;Therapeutic Exercise (98698) $ Evaluation-Low (89414) Billed Units: 1 unit Therapeutic Exercise (43807) Treatment Minutes: 25 2 units Skilled Intervention(s): [...] SIGNATURE: Josie Alonzo Asp PT PATIENT NAME: Cesar George Jr. DATE: April 07, 2018 TIME: 9:09 AM PAGER/CONTACT #: [phone] CBC Collected: 04/07/2018 Status: F Source: [place] 5:37 AM [facility] REPOSITORY TYPE CODE TESTS RESULT [...] Performed By: #### CBC, CMP, PT #### [facility] [address] [place], [place] [address] COMP METABOLIC PANEL Collected: 04/07/2018 Status: F Source: [place] 5:37 AM [facility] REPOSITORY TYPE CODE TESTS RESULT [...] mg/dL Glucose High 111 Result Comment: The [place] Diabetes Association (ADA) provides guidance for cutoff [...] Standards of Medical Care in Diabetes 2016, [place] [employer]. Diabetes Care. 2016.39(Suppl 1). LAB [...] Performed By: #### CBC, CMP, PT #### [facility] [address] [place], [place] [address] PROTIME Collected: 04/07/2018 Status: F Source: [place] 5:37 AM [facility] REPOSITORY TYPE CODE TESTS RESULT OUT OF RANGE REFERENCE UNITS LAB PSEC 9.7-13.0 sec PT Sec 10.8 LAB INR 0.9-1.3 PT INR 1.0 Result Comment: Vitamin K Antagonist (VKA) Therapeutic Range: INR 2 to 3 (Target INR of 2.5) Note: For patients treated with VKA drugs, such as warfarin, the [place] [employer] 2012 Guideline recommends [...] Chest 2012, 141:7S-47S David RA, et al. JAC 2017, 70: 252-289 Performed By: #### CBC, CMP, PT #### [facility] [address] [place], [place] [address] TMAO Collected: 04/07/2018 Status: F Source: [place] 5:37 AM [facility] REPOSITORY TYPE CODE TESTS RESULT OUT OF REFERENCE UNITS RANGE LAB TMAOXD <6.2 uM TMAO 1.3 Result Comment: (NOTE) Based on a population (W=[id number]) defined as ambulatory stable patients without acute [...] et al. N Engl J Med. 2013; 368:3392-0718). This test is performed by a Liquid Chromatography-Tandem Mass Spectrometry (LC/MS/MS) method. This test was developed and its performance characteristics determined by the [facility], [facility]. It has not been cleared or approved by the U.S. FDA. The [facility] is regulated under Clinical Laboratory Improvement Amendments (CLIA) as qualified to perform high-complexity testing. This test is used for clinical purposes. It should not be regarded as investigational or for research. Test performed at: [facility], [facility]. [address], [place] [address] Antonia Talley, PH.D., DABCC, FACB Performed By: #### CBC, CMP, PT #### [place] [address] Observed: 04/07/2018 Status: F Source: [facility] PNEUMO AG DETECT 4:39 AM [facility] REPOSITORY Sp. Request/Comment: - Specimen received in sterile container. Test Result - Negative for S.pneumoniae antigen. Presumptive negative for pneumococcal pneumonia, suggesting no current or recent pneumococcal infection. Infection due to S.pneumoniae cannot be ruled out since the antigen present in the sample may be below the detection limit of the test. Performed By: #### SPNAG #### [place] [address] CONSULT PROG Observed: 04/06/2018 Status: COMPLETED Source: [place] 3:28 PM [facility] REPOSITORY HNO ID: [id number] Author: Mercedes Montalvo Service: Cardiac Surgery Author Type: Nurse Practitioner Type: Consult Progress Note Filed: 04/06/2018 3:30 PM Note Text: CTS staff Dr. Zhu Intended surgery: CABG [...] -- -- -- 3.2 Mercedes Montalvo RN PATTERN MAKER.BILINGUAL KINDERGARTEN TEACHER PROGRESS Observed: 04/06/2018 Status: COMPLETED Source: [place] 1:14 PM [facility] REPOSITORY HNO ID: [id number] Author: Van Mcguire Service: Cardiovascular Medicine Author Type: Physician Type: Progress Notes Filed: 04/06/2018 1:32 PM Note Text: [facility] CARDIOVASCULAR MEDICINE PROGRESS NOTE (Template ID [id number]) Cesar George Jr. [id number] PRIMARY SERVICE: Hvi Clinical Cardiology A HOSPITAL [...] -- 1.9 IMAGING Reviewed ASSESSMENT AND PLAN Cesar George Jr. is a 57 year old [...] Review CD with Staff for possible repeat [facility] Echo Carotid US for CABG prep See [...] discussed with staff Blanco Paul MD Pager [phone] (please see below for after hours communication) For communication after 5 pm on weekdays and after 12 pm on weekends, please page the following: - Clinical Cardiology patients on all floors: page [phone] - Other Cardiology patients on J5 and J6: page [phone] - Other Cardiology patients on J7 and J8: page [phone] [facility] NOTE OF PERSONAL INVOLVEMENT IN CARE IMPRESSION: Patient is a 57 year old male with: #Coronary artery disease status post NSTEMI and found to have severe multivessel disease (I have reviewed his cardiac catheterization and have uploaded to [email or web address]) #PAD #Diabetes mellitus #Prior CVA #Mixed hyperlipidemia [...] LEAD ELECTROCARDIOGRAM Observed: 04/06/2018 Status: F Source: [place] 10:33 AM [facility] REPOSITORY [facility] Cardiovascular Services [address] [place] [address] 12 Lead EKG 04/01/18 1826 MR#: [id number] Acct: [id number] Name: CESAR GEORGE Rep #: [id number] : 1960 57 From: Senthil Hoang MD Attending Dr: Shania Hernandez Status: DIS IN Ordering Dr: Mini Marcelino MD Date: 04/01/18 Location: U Sex: M C Admitted: 04/01/18 Test Reason [...] leads Confirmed by SENTHIL HOANG MD ([id number]), scientific editor TIERA CHATMAN ([id number]) on 04/06/2018 10:33:00 AM Referred By: Agustín Emanuel Confirmed By:SENTHIL HOANG MD 04/06/18 1033 Date Senthil Hoang MD CC: Mini Marcelino MD; Shania Mary; Avery Fischer DO Signed 12 LEAD ELECTROCARDIOGRAM Observed: 04/06/2018 Status: F Source: [place] 10:19 AM [facility] REPOSITORY [facility] Cardiovascular Services [address] [place] [address] 12 Lead EKG 04/02/18 0539 MR#: [id number] Acct: [id number] Name: CESAR GEORGE Rep #: [id number] : 1960 57 From: Senthil Hoang MD Attending Dr: Shania Hernandez Status: DIS IN Ordering Dr: Mat Ring MD Date: 04/02/18 Location: [facility] Sex: M C Admitted: 04/01/18 Test [...] UNCONFIRMED Confirmed by SENTHIL HOANG MD ([id number]), scientific editor TIERA CHATMAN ([id number]) on 04/06/2018 10:19:15 AM Referred By: Agustín Emanuel Confirmed By:SENTHIL HOANG MD 04/06/18 1019 Date Senthil Hoang MD CC: Shania Hernandez; Avery Fischer DO; Mat Ring MD Signed CASE MANAGEM Observed: 04/06/2018 Status: COMPLETED Source: [place] 10:17 AM [facility] REPOSITORY HNO ID: [id number] Author: Fabiola (Rn) LIN Anders Service: Care [...] identified. SIGNATURE: Fabiola Anders RN PATIENT NAME: Cesar George Jr. DATE: April 06, 2018 TIME: 10:17 AM PAGER/CONTACT #: [phone] WEEK[facility] CM PAGER: [phone] LEAD ELECTROCARDIOGRAM Observed: 04/06/2018 Status: F Source: [place] 10:15 AM [facility] REPOSITORY [facility] Cardiovascular Services [address] [place] [address] 12 Lead EKG 04/03/18 0540 MR#: [id number] Acct: [id number] Name: CESAR GEORGE Rep #: [id number] : 1960 57 From: Senthil Hoang MD Attending Dr: Shania Hernandez Status: DIS IN Ordering Dr: Mat Ring MD Date: 04/03/18 Location: [facility] Sex: M C Admitted: 04/01/18 Test [...] UNCONFIRMED Confirmed by SENTHIL HOANG MD ([id number]), scientific editor TIERA CHATMAN ([id number]) on 04/06/2018 10:15:35 AM Referred By: Agustín Emanuel Confirmed By:SENTHIL HOANG MD 04/06/18 1015 Date Senthil Hoang MD CC: Shania Hernandez; Avery Fischer DO; Mat Ring MD Signed PROTIME Collected: 04/06/2018 Status: F Source: [place] 3:50 AM [facility] [place] REPOSITORY TYPE CODE TESTS RESULT OUT OF RANGE REFERENCE UNITS LAB PSEC 9.7-13.0 sec PT Sec 11.0 LAB INR 0.9-1.3 PT INR 1.1 Result Comment: Vitamin K Antagonist (VKA) Therapeutic Range: INR 2 to 3 (Target INR of 2.5) Note: For patients treated with VKA drugs, such as warfarin, the [place] [employer] 2012 Guideline recommends [...] Chest 2012, 141:7S-47S David RA, et al. JAC 2017, 70: 252-289 Performed By: #### PT, CBC, CMP #### [facility] [address] [place] [address] CBC Collected: 04/06/2018 Status: F Source: [place] 3:50 AM [facility] REPOSITORY TYPE CODE TESTS RESULT [...] Performed By: #### PT, CBC, CMP #### [facility] [address] [place], [place] [address] COMP METABOLIC PANEL Collected: 04/06/2018 Status: F Source: [place] 3:50 AM [facility] REPOSITORY TYPE CODE TESTS RESULT [...] mg/dL Glucose High 111 Result Comment: The [place] Diabetes [employer] (ADA) provides guidance for cutoff [...] Standards of Medical Care in Diabetes 2016, [place] [employer]. Diabetes Care. 2016.39(Suppl 1). LAB [...] Performed By: #### PT, CBC, CMP #### [facility] [facility] [address] [id number] 12 LEAD ELECTROCARDIOGRAM Observed: 04/05/2018 Status: F Source: [place] 3:41 PM [facility] REPOSITORY [facility] Cardiovascular Services [address] [place] [id number] 12 Lead EKG 04/01/18 1430 MR#: [id number] Acct: [id number] Name: CESAR GEORGE Rep #: [id number] : 1960 57 From: Senthil Hoang MD Attending Dr: Shania Hernandez Status: DIS IN Ordering Dr: Agustín Emanuel MD Date: 04/01/18 Location: [facility] Sex: M C Admitted: 04/01/18 Test [...] ECG Confirmed by SENTHIL HOANG MD ([id number]), scientific editor TIERA CHATMAN ([id number]) on 04/05/2018 3:41:30 PM Referred By: Agustín Emanuel Confirmed By:SENTHIL HOANG MD 04/05/18 1541 Date Senthil Hoang MD CC: Shania Hernandez; Agustín Emanuel MD; Avery Fischer DO Signed PROGRESS Observed: 04/05/2018 Status: COMPLETED Source: [place] 1:28 PM [facility] REPOSITORY HNO ID: [id number] Author: Van Mcguire Service: Cardiovascular Medicine Author Type: Physician Type: Progress Notes Filed: 04/05/2018 1:49 PM Note Text: [facility] CARDIOVASCULAR MEDICINE PROGRESS NOTE (Template ID [id number]) Cesar George Jr. [id number] PRIMARY SERVICE: Hvi Clinical Cardiology [facility] [...] -- 1.9 IMAGING Reviewed ASSESSMENT AND PLAN Cesar George is a 57 year old male [...] Review CD with Staff for possible repeat [facility] Echo Carotid US for CABG prep See [...] discussed with staff Blanco Paul MD Pager [phone] (please see below for after hours communication) 04/05/2018 1:28 PM For communication after 5 pm on weekdays and after 12 pm on weekends, please page the following: - Clinical Cardiology patients on all floors: page [phone] - Other Cardiology patients on J5 and J6: page [phone] - Other Cardiology patients on J7 and J8: page [phone] [facility] NOTE OF PERSONAL INVOLVEMENT IN [...] PM APTT Collected: 04/05/2018 Status: F Source: [place] 11:06 AM [facility] REPOSITORY TYPE CODE TESTS RESULT [...] laboratory APTT reagent in use throughout the [facility]. Performed By: #### PTT #### [facility] [address] [place], [place] [address] PROTIME Collected: 04/05/2018 Status: F Source: [place] 5:31 AM [facility] REPOSITORY TYPE CODE TESTS RESULT OUT OF RANGE REFERENCE UNITS LAB PSEC 9.7-13.0 sec PT Sec 11.1 LAB INR 0.9-1.3 PT INR 1.1 Result Comment: Vitamin K Antagonist (VKA) Therapeutic Range: INR 2 to 3 (Target INR of 2.5) Note: For patients treated with VKA drugs, such as warfarin, the [place] [employer]icians 2012 Guideline recommends [...] Chest 2012, 141:7S-47S David RA et al. [facility] 2017, 70: 252-289 Performed By: #### PT, CBC, CMP #### [facility] [address], [place] [address] CBC Collected: 04/05/2018 Status: F Source: [place] 5:31 AM [facility] REPOSITORY TYPE CODE TESTS RESULT [...] Performed By: #### PT, CBC, CMP #### [facility] [address] [place], [place] [address] COMP METABOLIC PANEL Collected: 04/05/2018 Status: F Source: [place] 5:31 AM [facility] REPOSITORY TYPE CODE TESTS RESULT [...] mg/dL Glucose High 107 Result Comment: The [place] Diabetes Association (ADA) provides guidance for cutoff [...] Standards of Medical Care in Diabetes 2016, [place] [employer]. Diabetes Care. 2016.39(Suppl 1). LAB [...] Performed By: #### PT, CBC, CMP #### [facility] [address] [place], [place] [address] CT CHEST CARDIAC WO Observed: 04/04/2018 Status: F Source: [place] 7:35 PM [facility] REPOSITORY * * *Final Report* * * DATE OF EXAM: Apr 04 2018 7:35PM [facility] 2056 - CT CHEST CARDIAC WO IVCON [...] arteries, precluding precise assessment with CT. - [place] AMOS and ARAVIND are normal size vessels [...] Rubi Images reconstructed, saved, and available in [employer], '[facility] [employer]' Turning And Beading Machine Operator: KAYE Transcribe Date/Time: Apr 04 2018 8:13P Dictated by : MAT CROSS MD This examination was interpreted and the report reviewed and electronically signed by: MAT CROSS MD on Apr 04 2018 8:29PM EST [id number] PROGRESS Observed: 04/04/2018 Status: COMPLETED Source: [place] 7:13 PM [facility] REPOSITORY HNO ID: [id number] Author: NINA Leyva (Ct) Service: Radiology Author Type: Clinical Whiskey Filterer Type: Progress Notes Filed: 04/04/2018 7:13 PM Note Text: Radiology Service Progress Note PATIENT NAME: Cesar George Jr. DATE OF SERVICE: April 04, [...] WO IVCON Observed: 04/04/2018 Status: F Source: [place] 7:12 PM [facility] REPOSITORY * * *Final Report* * * DATE OF EXAM: Apr 04 2018 7:12PM [facility] - CT BRAIN WO IVCON / [...] soft tissues are unremarkable. IMPRESSION: Normal study Turning And Beading Machine Operator: PSCB Transcribe Date/Time: Apr 04 2018 7:27P Dictated by : DOMINIQUE THEODORE MD This examination was interpreted and the report reviewed and electronically signed by: DOMINIQUE THEODORE MD on Apr 04 2018 7:27PM EST [id number] HISTOPLASMA AG,URINE Collected: 04/04/2018 Status: F Source: [place] 7:02 PM [facility] REPOSITORY TYPE CODE TESTS RESULT [...] developed and its performance characteristics determined by [employer]. It has not been cleared or approved by the FDA; however, FDA clearance or approval is not currently required for clinical use. The results are not intended to be used as the sole means for clinical diagnosis or patient management decisions. Test performed by [employer], [facility] [place] [address] Performed By: #### UHISTO #### [facility] [address] [place], [place] [address] CONSULT Observed: 04/04/2018 Status: COMPLETED Source: [place] 12:57 PM [facility] [place] REPOSITORY HNO ID: [id number] Author: Bernadine (Rn) LIN Pozo Service: Wound Care Team Author Type: Registered Nurse Type: Consults Filed: 04/04/2018 1:07 PM Note Text: Wound Care Consult Team Per HANDP: DM2 c/b neuropathy, HTN, HLD, PAD/PVD, and CVA who presented for evaluation for PCI vs CABG after an NSTEMI on 04/01/18. ? Pt presented to [facility] on 04/01/18 w a 7d hx of increasing cough and SOB, CP wo radiation and diarrhea. CT PE wo PE but b/l effusions and groundglass opacities. EKG showed NSR, age unclear septal infarct, and non -specific STANDT wave abnmlities. Tn 6, BNP 600. Serial EKGs and Kylah showed no STEMI. Cdiff was pos and pt started on Flagyl. PATIENT NAME: Cesar George Jr. Reason for Assessment: For puncture wound to R plantar heel. Requested by: operations controller: Pt reports stepping on a nail 2 [...] Goals: Maintain skin prevention measures based on Kabar risk assessment scores. Recommendations: 1. R plantar heel: Cleanse with NS or wound cleanser. Pat dry. Apply 2x2 gauze and secure with paper tape or Bandaid. Change daily. 2. Pt should wear non-skid socks while up ambulating. 3. Pt to f/u at local wound center. Electronically Signed By: Bernadine Pozo RN WCCT PT ED Observed: 04/04/2018 Status: COMPLETED Source: [place] 12:22 PM [facility] REPOSITORY HNO ID: [id number] Author: Froylan Benjamin RD Service: Nutrition Therapy Author Type: Registered Dietitian Type: Patient Education Filed: 04/04/2018 12:23 PM Note Text: [facility] NUTRITION HEART FAILURE PATIENT EDUCATION TOPIC: Survival Skills: Diet PATIENT NAME: Cesar George Jr. SERVICE DATE: April 04, 2018 Diagnosis: ADULT: Heart Failure EXEMPTION FROM DIET EDUCATION Patient/family refusal of diet education due to receipt of previous instructions Referral (Recommendation): Primary Care Provider MNT Billing Type: Initial Assess/15 min [address], LD Pager: [phone] April 04, 2018 12:22 PM NUTRITION Observed: 04/04/2018 Status: COMPLETED Source: [place] 11:59 AM [facility] REPOSITORY HNO ID: [id number] Author: Froylan Benjamin RD Service: Nutrition Therapy [...] _ _ _ _ _ Per HPI: Cesar George Jr. is a 57 year old male w PMH of DM2 c/b neuropathy, HTN, HLD, PAD/PVD, and CVA who presented for evaluation for PCI vs CABG after an NSTEMI on 04/01/18. ? 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 Pt denies any chewing/swallowing [...] index is 28.8 kg/m?. overweight Wt loss CYBER DEFENSE ANALYST: 4.6% x ~1 year Pt states wt fluctuates between 195-210# HT/WT/BMI HEIGHT WEIGHT 04/27/2017 95.255 kg 07/27/2017 93.895 kg 10/12/2017 5' 10 93.895 kg 11/01/2017 89.359 kg 01/30/2018 93.895 kg 04/03/2018 5' 10 04/04/2018 91.037 kg [place] Body Weight: 75.5kg Resting Metabolic Rate: 1750 Estimated kilocalorie needs: 6027-0423 kilocalories determined by 25-30 kcal/kg @ IBW Estimated protein needs: 83-98 grams determined by 1.1-1.3g/kg @ [place] weight Estimated fluid needs: ~6191-2815 milliliters based on 1 mL per kcal [...] SIGNATURE: Froylan Benjamin RD, LD PATIENT NAME: Cesar George Jr. DATE: April 04, 2018 TIME: 12:00 PM PAGER: [phone] PROGRESS Observed: 04/04/2018 Status: COMPLETED Source: [place] 11:51 AM [facility] REPOSITORY HNO ID: [id number] Author: Tommie Wilson Service: (none) Author Type: (none) Type: Progress Notes Filed: 04/04/2018 11:52 AM Note Text: Radiology Service Progress Note PATIENT NAME: Cesar George Jr. DATE OF SERVICE: April 04, 2018 TIME: 11:52 AM PATIENT IDENTITY VERIFICATION COMPLETED USING TWO (2) METHODS: Patient confirmed name verbally and ID band matches.. PATIENT GENDER DATA: Male PATIENT RELEVANT IMPLANT DATA REVIEWED: Not Applicable RADIOLOGY DEPARTMENT: General X-ray: Exam(s) Completed: Chest X-Ray PERIPHERAL IV DATA: Not applicable SIGNED BY: Tommie Wilson April 04, 2018 11:52 AM XR CHEST 2V FRONTAL/LAT Observed: 04/04/2018 Status: F Source: [place] 11:51 AM [facility] REPOSITORY * * *Final Report* * * [...] within the thoracic spine. IMPRESSION: See results. Turning And Beading Machine Operator: KAYE Transcribe Date/Time: Apr 04 2018 5:13P Dictated by : TEODORA AGUILAR MD This examination was interpreted and the report reviewed and electronically signed by: TEODORA AGUILAR MD on Apr 04 2018 5:19PM EST [id number] CONSULT Observed: 04/04/2018 Status: COMPLETED Source: [place] 10:40 AM [facility] REPOSITORY HNO ID: [id number] Author: Mercedes Dougherty) Raffaele Service: Cardiac Surgery Author Type: Nurse Practitioner Type: Consults Filed: 04/04/2018 1:07 PM Note Text: CONSULT HISTORY and PHYSICAL CARDIOTHORACIC SURGERY Consulting Service: Cardiothoracic Surgery Requesting Provider: [facility] Musical String Maker, Van Mcguire MD. Opinion/advice regarding: Pre-Op Open Heart Surgery Cardiothoracic Physician: Sammy Zhu M.D. NAME: Cesar George Jr. HEIGHT: 177.8 cm WEIGHT: 91 [...] antibiotics and is on isolation. . Mr. Cesar George Jr. states he is a tavarez [...] EMG - Diabetic retinopathy of both eyes ([facility]) eye exam 05/29/13 - DM (diabetes mellitus) ([facility]) Diagnosed in 2004 - Mild atherosclerosis of both carotid arteries 05/2016 ICA b/l 20-39% - Polyneuropathy ([facility]) 10/2013 axon loss, Dr. Mazin Hinojosa Neuro, likely from DM and Vitamin B12 defic - Stroke ([facility]) 10/01/13 - Ulnar neuropathy 10/2013 b/l, chronic, [...] AREA ONCE DAILY NEEDED FOR FACE RASH bbwsopeqz-M9-ftM12-algal oil (METANX, ALGAL OIL,) 3 mg-35 mg-2 [...] have personally reviewed the following data: outside [facility] loaded to [facility]. [facility] echo: CONCLUSIONS: - Exam indication: CAD [...] infarction) (HCC) - 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 (HCC) Plan: [...] the requesting provider electronically. SIGNATURE:Mercedes Montalvo RN PATTERN MAKER.BILINGUAL KINDERGARTEN TEACHER PAGER:[phone] Date of Service: April 04, 2018 Time of Service: 1:07 PM ALLIED HEALTH Observed: 04/04/2018 Status: COMPLETED Source: [place] 10:37 AM [facility] REPOSITORY HNO ID: [id number] Author: Alexandra LernerRn) LIN Jordan Service: Infection Prevention Author Type: Registered Nurse [...] hospital. SIGNATURE: Alexandra Jordan RN PATIENT NAME: Cesar George Jr. DATE: April 04, 2018 TIME: 10:37 AM PAGER/CONTACT #: [phone] Infection Prevention after hours/weekend pager: [phone] CASE MGT INIT Observed: 04/04/2018 Status: COMPLETED Source: [facility] 9:17 AM [facility] REPOSITORY HNO ID: [id number] Author: Fabiola LernerRnSowmya Anders RN Service: Care Management Author Type: Registered Nurse Type: Care Mgt Initial Assessment Filed: 04/04/2018 10:39 AM Note Text: CARE MANAGEMENT: ASSESSMENT AND DISCHARGE PLAN SERVICE DATE: 04/04/2018 SERVICE TIME: 09:10 AM PRIMARY CARE PHYSICIAN: Avery Escalante DO *Verified this is PCP ADMISSION STATUS: Inpatient Needs Prior to Discharge: To Be Determined 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 Currently admitted for PCI vs. CABG after NSTEMI 04/01/18. Last Admission Date: Previous admit date: 02/16/2013 Is this Within the Past 30 days? No Advance Directive: Current Advance Directive: None Conservation Of Resources Commissioner Assisted with AD Completion: Yes Action: Education [...] None Has the Patient Been in a Usp Facility in the Past 30 days? No SOCIAL: Living Arrangement: Home Lives With: Spouse and Daughter (27 y/o) Financial Resources: Employed: [employer] with his father Primary Contact: Extended Emergency Contact Information Primary Emergency Contact: Radha Yañez Relation: Secondary Emergency Contact: Brent George Relation: [...] 0 I feel financially burdened by my [id number]-bxhwub expenses for my prescription medication: Disagree completely [...] year old male who was transferred from [facility] to [facility] on 04/03[facility]18. Originally admitted 04/01/18, transferred for evaluation for PCI vs. CABG after NSTEMI 04/01/18. He reports being independent and living with his and 27 y/o daughter in [place], [place]. 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 Currently on precautions for c diff. Patient is on RA. Will follow and plan for discharge accordingly. SIGNATURE: Fabiola Anders RN PATIENT NAME: Cesar George Jr. DATE: April 04, 2018 TIME: 9:17 AM PAGER/CONTACT #: [phone] XR ABDOMEN 1V SUPINE Observed: 04/04/2018 Status: F Source: [place] 5:44 AM [facility] REPOSITORY * * *Final Report* * * [...] pathologic calcification. Visualized lung bases grossly clear. Turning And Beading Machine Operator: KAYE Transcribe Date/Time: Apr 04 2018 8:38A Dictated by : JOANNA DUPREE MD This examination was interpreted and the report reviewed and electronically signed by: JOANNA DUPREE MD on Apr 04 2018 8:39AM EST [id number] XR CHEST 1V FRONTAL Observed: 04/04/2018 Status: F Source: [facility] 5:44 AM [facility] REPOSITORY * * *Final Report* * * [...] is borderline enlarged, likely accentuated by hypoinflation. Turning And Beading Machine Operator: PSCB Transcribe Date/Time: Apr 04 2018 12:00P Dictated by : TEODORA AGUILAR MD This examination was interpreted and the report reviewed and electronically signed by: TEODORA AGUILAR MD on Apr 04 2018 12:44PM EST [id number] LIPID PANEL, BASIC Collected: 04/04/2018 Status: F Source: [place] 5:02 AM [facility] REPOSITORY TYPE CODE TESTS RESULT [...] Desk Reference: National Heart, Lung, and Blood [place]. National Institutes of Health. 2001: NIH Publication No. 01-3305. 2. An International Atherosclerosis Society position paper: global recommendations for the management of dyslipidemia: executive summary, Atherosclerosis. 2014: 232(2):410-413. Performed By: #### LIPB, TSH, LPA, HBA1C #### [facility] [address] [address] TSH Collected: 04/04/2018 Status: F Source: [place] 5:02 AM [facility] REPOSITORY TYPE CODE TESTS RESULT OUT OF RANGE REFERENCE UNITS LAB TSH 0.400-5.500 uU/mL TSH 2.410 Performed By: #### LIPB, TSH, LPA, HBA1C #### [facility] [address] [place], [place] [address] LIPOPROTEIN (A) Collected: 04/04/2018 Status: F Source: [place] 5:02 AM [facility] REPOSITORY TYPE CODE TESTS RESULT OUT OF REFERENCE UNITS RANGE LAB LPA 0-40 mg/dL Lipoprotein (a) 20 Performed By: #### LIPB, TSH, LPA, HBA1C #### [facility] [address] [address] HEMOGLOBIN A1C Collected: 04/04/2018 Status: F Source: [place] 5:02 AM [facility] REPOSITORY TYPE CODE TESTS RESULT OUT OF REFERENCE UNITS RANGE LAB HGBA1C 4.3-5.6 % High Hemoglobin A1c 5.7 LAB HBA0 mg/dL Est. Average Glucose 117 Result Comment: eAG: (Estimated average glucose) is a calculated value from HgbA1c and is brewery representative of the average blood glucose level in the last 2-3 month period. Performed By: #### LIPB, TSH, LPA, HBA1C #### [facility] [address] [address] CONFIRM BLOOD TYPE Collected: 04/04/2018 Status: F Source: [place] 5:[address] [facility] REPOSITORY TYPE CODE TESTS RESULT OUT OF REFERENCE UNITS RANGE LAB %ABR B ABO/RH(D) POSITIVE Performed By: #### CONABO #### [facility] [address] [address] Observed: 04/04/2018 Status: F Source: [place] BLOOD CULTURE 5:[address] [facility] REPOSITORY Sp. Request/Comment: - The blood culture bottles are underfilled. Adding volume lower or higher than the 8 to 10 mL per bottle, which is the manufacturers recommended volume, may adversely affect the re covery and/or detection of organisms. 10.6CC Culture Result - No growth 5 days Performed By: #### BLCUL #### [facility] [address] [address] CBC Collected: 04/04/2018 Status: F Source: [place] 1:[address] [facility] REPOSITORY TYPE CODE TESTS RESULT OUT [...] nRBC <0.01 Performed By: #### CBC #### [facility] [address] [place], [place] [address] HISTORY PHYSICAL Observed: 04/04/2018 Status: COMPLETED Source: [place] 1:09 AM [facility] [place] REPOSITORY HNO ID: [id number] Author: Van Mcguire Service: Cardiovascular Medicine Author Type: Physician Type: HANDP Filed: 04/04/2018 3:06 PM Note Text: [facility] CARDIOVASCULAR MEDICINE HISTORY AND PHYSICAL (Template ID [id number]) Cesar George Jr. [id number] PRIMARY SERVICE: Cardiovascular Medicine: Clinical Cardiology DATE OF ADMISSION: 04/03/2018 CHIEF COMPLAINT NSTEMI w MVDz here for PCI w rotoblater vs CABG HISTORY OF PRESENT ILLNESS Cesar George Jr. is a 57 year old male w PMH of DM2 c/b neuropathy, HTN, HLD, PAD/PVD, and CVA who presented for evaluation for PCI vs CABG after an NSTEMI on 04/01/18. Pt presented to [facility] on 04/01/18 w a 7d hx of [...] EMG - Diabetic retinopathy of both eyes ([facility]) eye exam 05/29/13 - DM (diabetes mellitus) ([facility]) Diagnosed in 2004 - Mild atherosclerosis of both carotid arteries 05/2016 ICA b/l 20-39% - Polyneuropathy ([facility]) 10/2013 axon loss, Dr. Mazin Hinojosa Neuro, likely from DM and Vitamin B12 defic - Stroke ([facility]) 10/01/13 - Ulnar neuropathy 10/2013 b/l, chronic, [...] three times daily. Dx: E11.42, Insulin dependent REBECCAAGLAR EDIN U-100 INSULIN 100 unit/mL (3 mL) [...] AREA ONCE DAILY NEEDED FOR FACE RASH cwlyuvpel-V7-pzR58-algal oil (METANX, ALGAL OIL,) 3 mg-35 mg-2 [...] Pending Stress Testing: NA Cardiac Catheterization: 04/03/18 [facility] done at [facility], uploaded into [facility] Epic LMT 25% LAD Prox 85%, Dist 75% LCX Prox 75%, Dist 85% RCA 95% Other Radiology: 04/01/18 done at [facility] CTA Chest - no PE, small b/l effusions, some pulm congestion w ground glass opacities ASSESSMENT AND PLAN Cesar George Jr. is a 57 year old [...] infarction) (HCC) - 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 (HCC) Neuro #Peripheral Neuropathy 2/2 DM2 Mild numbness in feet b/l Plan Cont Gabapentin CV #NSTEMI in s/o 3VDz Tn peak 6, BNP ~600 Plan Plan for CABG, workup Review CD with Staff for possible repeat [facility] Echo Carotid US for CABG prep See [...] indicated Case to be discussed with staff Balnco Paul MD Pager [phone] (please see below for after hours communication) 04/04/2018 1:09 AM For communication after 5 pm on weekdays and after 12 pm on weekends, please page the following: - Clinical Cardiology patients on all floors: page [phone] - Other Cardiology patients on J5 and J6: page [phone] - Other Cardiology patients on J7 and J8: page [phone] [facility] PHYSICIAN NOTE OF PERSONAL INVOLVEMENT IN CARE IMPRESSION: Patient is a 57 year old male with: #Coronary artery disease status post NSTEMI and found to have severe multivessel disease (I have reviewed his cardiac catheterization and have uploaded to [employer]) #PAD #Diabetes mellitus #Prior CVA #Mixed hyperlipidemia #Current clostridium difficile infection PLAN: I have reviewed his cardiac catheterization which is now uploaded on [employer]. Since he has severe multivessel disease including [...] CONFIRM ABO/RH Collected: 04/04/2018 Status: F Source: [place] [facility] USE 1:00 AM [facility] ONLY REPOSITORY TYPE CODE TESTS RESULT OUT OF REFERENCE UNITS RANGE LAB %ABR B ABO/RH(D) POSITIVE Performed By: #### TRCABO #### [facility] [address] [id number] NURSING PROG Observed: 04/04/2018 Status: COMPLETED Source: [place] 12:40 AM [facility] REPOSITORY HNO ID: [id number] Author: Pamela (Rn) LIN Douglas Service: (none) Author Type: Registered Nurse Type: Nursing Progress Note Filed: 04/04/2018 12:44 AM Note Text: Nursing Progress Note Patient Name: Cesar George Jr. Patient Location: [address]6-1-13 Transfer Note: Patient transferred into [facility] room 13, report taken from LIN Gonzalez @[facility], in stable condition. Actions taken: Pt oriented [...] RN PROTIME Collected: 04/04/2018 Status: F Source: [place] 12:08 AM [facility] REPOSITORY TYPE CODE TESTS RESULT OUT OF RANGE REFERENCE UNITS LAB PSEC 9.7-13.0 sec PT Sec 10.8 LAB INR 0.9-1.3 PT INR 1.0 Result Comment: Vitamin K Antagonist (VKA) Therapeutic Range: INR 2 to 3 (Target INR of 2.5) Note: For patients treated with VKA drugs, such as warfarin, the [place] [employer] Physicians 2012 Guideline recommends [...] to 3.5 (target INR of 3). Michael JASMINE, et al. Chest 2012, 141:7S-47S David RA, et al. [facility] 2017, 70: 252-289 Performed By: #### PT, CMP, MG1, PHOS, CBCDIF #### [facility] [address] [place] [id number] COMP METABOLIC PANEL Collected: 04/04/2018 Status: F Source: [place] 12:08 AM [facility] REPOSITORY TYPE CODE TESTS RESULT [...] mg/dL Glucose High 130 Result Comment: The [place] Diabetes Association (ADA) provides guidance for cutoff [...] Standards of Medical Care in Diabetes 2016, [place] [employer]. Diabetes Care. 2016.39(Suppl 1). LAB [...] #### PT, CMP, MG1, PHOS, CBCDIF #### [facility] [facility] [address] [place], [place] [address] MAGNESIUM Collected: 04/04/2018 Status: F Source: [place] 12:08 AM [facility] REPOSITORY TYPE CODE TESTS RESULT OUT OF REFERENCE UNITS RANGE LAB MG 1.7-2.3 mg/dL Magnesium 1.9 Performed By: #### PT, CMP, MG1, PHOS, CBCDIF #### [facility] [address] [place], [place] [address] PHOSPHORUS Collected: 04/04/2018 Status: F Source: [place] 12:08 AM [facility] REPOSITORY TYPE CODE TESTS RESULT OUT OF REFERENCE UNITS RANGE LAB PHOS 2.7-4.8 mg/dL Phosphorus 3.2 Performed By: #### PT, CMP, MG1, PHOS, CBCDIF #### [facility] [address] [place] [address] CBC AND DIFFERENTIAL Collected: 04/04/2018 Status: F Source: [place] 12:08 AM [facility] REPOSITORY TYPE CODE TESTS RESULT [...] k/uL Abs Lymph 1.34 LAB AMONO % Mineral% 8.7 LAB AAMONO <0.87 k/uL Abs Mineral High 1.50 LAB AEOS % Eosin% 1.7 [...] #### PT, CMP, MG1, PHOS, CBCDIF #### [facility] [address] [place], [place] [address] TYPE AND SCREEN Collected: 04/04/2018 Status: F Source: [place] 12:08 AM [facility] REPOSITORY TYPE CODE TESTS RESULT OUT OF REFERENCE UNITS RANGE LAB %ABR B ABO/RH(D) POSITIVE LAB % Antibody NEG Screen Performed By: #### TSCR #### [facility] [address] [place], [place] [address] BEDSIDE GLUCOSE Collected: 04/03/2018 Status: F Source: [place] 9:10 PM [facility] REPOSITORY TYPE CODE TESTS RESULT OUT OF REFERENCE UNITS RANGE LAB L501.080 70-110 mg/dL High BEDSIDE GLU 196 Result Comment: MANAGEMENT OF PATIENT CARE PER NURSING PROTOCOL Performed By: #### L501.080 #### [facility] Point of Care [address] [place], [place] [address] BEDSIDE GLUCOSE Collected: 04/03/2018 Status: F Source: [place] 4:14 PM [facility] REPOSITORY TYPE CODE TESTS RESULT OUT OF REFERENCE UNITS RANGE LAB L501.080 70-110 mg/dL High BEDSIDE GLU 170 Result Comment: MANAGEMENT OF PATIENT CARE PER NURSING PROTOCOL Performed By: #### L501.080 #### [facility] Point of Care [address] [place], [place] [address] DISCHARGE SUMMARY Observed: 04/03/2018 Status: F Source: [place] 2:20 PM [facility] REPOSITORY [facility] Medical Records Department [address] [place] [address] Discharge Summary 04/03/18 1056 MR#: [id number] Acct: [id number] Name: CESAR GEORGE Rep #: [id number] : 1960 57 From: Shania Hernandez PCP: Avery Fischer DO Status: ADM IN Y [facility] Discharge Date and Diagnosis - Problem List [...] Most likely severe diabetic neuropathy Workup [facility] Cerebrovascular disease (Chronic) Right thalamic stroke Hospital Course and Treatment Consultations 04/01/18 16:32 Consult: Onc/Wound/insert cutter Routine Comment: Cardiology Dr. Ring Operations: None [...] RLE Chronic wounds who presents to the [facility] ED on 04/01/18 with history of ongoing [...] mild segmented LV systolic dysfunction, LVEF 50%, [place] multivessel coronary disease with recommendations including risk factor modification, medical therapy and transfer to tertiary care center for evaluation for possible CABG. Additionally, patient upon admission did have continued diarrhea which she had noted had been ongoing for several days with C. difficile assay obtained and notable for Clostridium difficile patient initiation on oral Flagyl regimen. [facility] contacted for transfer and accepted by cardiology [...] bypass surgeries. Patient agreeable to discharge to [facility], pending bed, accepted per Cardiology service. [...] Instructions: Self-Care for Strains and Sprains Disposition: Acute care Hospital Minutes spent on discharge:: 35 Patient [...] Kurt at discharge?: Yes Done w/ Acute CT measure.: Yes - CHF REINIER/ARB ordered at discharge?: No Reason REINIER/ARB not ordered?: Hypotension Documented LVEF (%): 50 Code Visit Inpatient E AND M: [id number] Disch Hosp 04/03/18 1420 <Electronically signed by Shania Hernandez > Date Shania Hernandez Cosigner Signature (if applicable): Date CC: Shania Hernandez; Avery Fischer, Signed BEDSIDE GLUCOSE Collected: 04/03/2018 Status: F Source: [place] 11:24 AM [facility] REPOSITORY TYPE CODE TESTS RESULT OUT OF RANGE REFERENCE UNITS LAB L501.080 70-110 mg/dL Normal BEDSIDE GLU 105 Result Comment: MANAGEMENT OF PATIENT CARE PER NURSING PROTOCOL Performed By: #### L501.080 #### [facility] Point of Care [address] [facility]. [place], [place] [address] BEDSIDE GLUCOSE Collected: 04/03/2018 Status: F Source: [place] 6:54 AM [facility] REPOSITORY TYPE CODE TESTS RESULT OUT OF RANGE REFERENCE UNITS LAB L501.080 70-110 mg/dL Normal BEDSIDE GLU 96 Result Comment: Insulin Given Dextrose 50 Given MANAGEMENT OF PATIENT CARE PER NURSING PROTOCOL Performed By: #### L501.080 #### [facility] Point of Care [address] [facility] [place] [address] PROTHROMBIN TIME W/INR Collected: 04/03/2018 Status: F Source: [place] 5:45 AM [facility] REPOSITORY TYPE CODE TESTS RESULT OUT OF RANGE REFERENCE UNITS LAB L300.4150 11.7-14.9 SECONDS High PROTIME 15.3 LAB L300.4200 Normal INR 1.2 Performed By: #### L300.3900, L300.4310 #### [facility] [address] [place], [address] PARTIAL THROMBOPLAST Collected: 04/03/2018 Status: F Source: [place] TIME 5:45 AM [facility] REPOSITORY TYPE CODE TESTS RESULT OUT OF RANGE REFERENCE UNITS LAB L300.4310 24.1-36.2 Seconds Normal PTT 34.7 Performed By: #### L300.3900, L300.4310 #### [facility] [address] [place], [address] BASIC METABOLIC Collected: 04/03/2018 Status: F Source: [place] PROFILE (BMP) 5:45 AM [facility] REPOSITORY TYPE CODE TESTS RESULT [...] GAP 9 Performed By: #### L500.2500 #### [facility] [address] [place], [address] CBC W/DIFF, AUTOMATED Collected: 04/03/2018 Status: C Source: [place] 5:45 AM [facility] REPOSITORY TYPE CODE TESTS RESULT [...] 1303 PATH REV previously reported as: February Performed By: #### L100.0100 #### [facility] [address] [place], [address] URINALYSIS, ROUTINE Collected: 04/03/2018 Status: F Source: [place] (DIPSTICK) 2:25 AM [facility] REPOSITORY Order Comment: How was Urine Obtained? PROTECTION AGENT TO SPECIFY TYPE CODE TESTS RESULT OUT [...] High LEUK 25 ESTERASE Performed By: #### L400.2011 #### [facility] [address] [place], [address] XA-CARDIAC IMPORT Observed: 04/03/2018 Status: F Source: [place] 12:00 AM [facility] REPOSITORY Images were obtained outside of [facility] [id number] Observed: 04/03/2018 Status: COMPLETED Source: [place] 12:00 AM [facility] REPOSITORY Patient:Cesar George MRN: <[id number]> Height:5' 10(1.778 m) Weight:195 lb 1.6 oz [...] unit/mL inpn desonide (TRIDESILON) 0.05 % cream xmhnfybvo-C1-rqW22-algal oil (METANX, ALGAL OIL,) 3 mg-35 mg-2 [...] mellitus (HCC) [E11.9] Diabetes with neurologic complications ([facility]) [E11.49] Hyperlipidemia [E78.5] Diabetes type 2, controlled ([facility]) [E11.9] Lower back pain [M54.5] Hearing loss [H91.90] Dizziness [R42] Other musculoskeletal symptoms referable to limbs(729.89) [R29.898] Hereditary and idiopathic peripheral neuropathy [G60.9] Vitamin B12 deficiency [E53.8] PAD (peripheral artery disease) ([facility]) [I73.9] Small vessel disease [I99.9] DM (diabetes mellitus), type 2 with neurological complications ([facility]) [E11.49] Other vitreous opacities - Both Eyes [H43.399] CVA (cerebral vascular accident) ([facility]) [I63.9] Type 2 diabetes, controlled, with neuropathy ([facility]) [E11.40] Type 2 diabetes mellitus with diabetic polyneuropathy ([facility]) [E11.42] After-cataract obscuring vision [H26.499] Pseudophakia of both eyes [Z96.1] Hyperopia [H52.00] Astigmatism, regular [H52.229] Vitreous floaters of both eyes [H43.393] Meibomian gland dysfunction (MGD) of upper and lower lids of both eyes [H02.89] NSTEMI (non-ST elevated myocardial infarction) ([facility]) [I21.4] 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 ([facility]) [I25.110] C. difficile colitis [A04.72] Preop testing [Z01.818] Nicotine use disorder, F17.2 [F17.200] Allergies: Lipitor [Atorvastatin Calcium] Metformin Date Verified: 04/12/18 Lab Values Lab Value Units Date High Low POTA* 5.0 mmol/L 04/12/2018 5.1 3.7 ESTHER* 36.8 % 04/12/2018 51.0 39.0 Progress Notes (): Pamela Dumont, RN, RN 04/04/2018 12:44 AM Signed Nursing Progress Note Patient Name: Cesar George Jr. Patient Location: [address]6--13 Transfer Note: Patient transferred into J61 room 13, report taken from LIN Gonzalez @[facility], in stable condition. Actions taken: Pt oriented to room, call light function, my safety plan initiated. Unable to play falls video for pt, educated completed over risk for falls and the need to call before getting up. Skin check done with Esequiel ALCARAZ. Wound from stepping on nail noted on right heel. Will continue to monitor This note was completed by: LIN Dumont MD 04/04/2018 3:06 PM Signed [facility]ICINE HISTORY AND PHYSICAL (Template ID [id number]) Cesar George Jr. [id number] PRIMARY SERVICE: Cardiovascular Medicine: Clinical Cardiology DATE OF ADMISSION: 04/03/2018 CHIEF COMPLAINT NSTEMI w MVDz here for PCI w rotoblater vs CABG HISTORY OF PRESENT ILLNESS Cesar George Jr. is a 57 year old male w PMH of DM2 c/b neuropathy, HTN, HLD, PAD/PVD, and CVA who presented for evaluation for PCI vs CABG after an NSTEMI on 04/01/18. Pt presented to [facility] on 04/01/18 w a 7d hx of [...] EMG - Diabetic retinopathy of both eyes ([facility]) eye exam 05/29/13 - DM (diabetes mellitus) ([facility]) Diagnosed in 2004 - Mild atherosclerosis of both carotid arteries 05/2016 ICA b/l 20-39% - Polyneuropathy ([facility]) 10/2013 axon loss, Dr. Mazin Hinojosa Neuro, likely from DM and Vitamin B12 defic - Stroke ([facility]) 10/01/13 - Ulnar neuropathy 10/2013 b/l, chronic, [...] times daily. Dx: E11.42, Insulin dependent BASAGLAR AALIYAHIKPEN U-100 INSULIN 100 unit/mL (3 mL) inpn [...] AREA ONCE DAILY NEEDED FOR FACE RASH yykpaqlyf-K4-nyW50-algal oil (METANX, ALGAL OIL,) 3 mg-35 mg-2 [...] NA Cardiac Catheterization: 04/03/18 LHC done at [facility], uploaded into [facility] Epic LMT 25% LAD Prox 85%, Dist 75% LCX Prox 75%, Dist 85% RCA 95% Other Radiology: 04/01/18 done at [facility] CTA Chest - no PE, small b/l effusions, some pulm congestion w ground glass opacities ASSESSMENT AND PLAN Cesar George Jr. is a 57 year old [...] infarction) (HCC) - 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 (HCC) Neuro #Peripheral Neuropathy 2/2 DM2 Mild numbness in feet b/l Plan Cont Gabapentin CV #NSTEMI in s/o 3VDz Tn peak 6, BNP ~600 Plan Plan for CABG, workup Review CD with Staff for possible repeat [facility] Echo Carotid US for CABG prep See [...] discussed with staff Blanco Paul MD Pager [phone] (please see below for after hours communication) 04/04/2018 1:09 AM For communication after 5 pm on weekdays and after 12 pm on weekends, please page the following: - Clinical Cardiology patients on all floors: page [phone] - Other Cardiology patients on J5 and J6: page [phone] - Other Cardiology patients on J7 and J8: page [phone] [facility] NOTE OF PERSONAL INVOLVEMENT IN CARE IMPRESSION: Patient is a 57 year old male with: #Coronary artery disease status post NSTEMI and found to have severe multivessel disease (I have reviewed his cardiac catheterization and have uploaded to [employer]) #PAD #Diabetes mellitus #Prior CVA #Mixed hyperlipidemia #Current clostridium difficile infection PLAN: I have reviewed his cardiac catheterization which is now uploaded on [employer]. Since he has severe multivessel disease including [...] Prior to Discharge: To Be Determined 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 Currently admitted for PCI vs. CABG after NSTEMI 04/01/18. Last Admission Date: Previous admit date: 02/16/2013 Is this Within the Past 30 days? No Advance Directive: Current Advance Directive: None Conservation Of Resources Commissioner Assisted with AD Completion: Yes Action: Education [...] None Has the Patient Been in a Usp Facility in the Past 30 days? 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 Originally admitted 04/01/18, transferred for evaluation for PCI vs. CABG after NSTEMI 04/01/18. He reports being independent and living with his and 27 y/o daughter in [place], [place]. 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 Currently on precautions for c diff. Patient is on RA. Will follow and plan for discharge accordingly. SIGNATURE: Fabiola Anders RN PATIENT NAME: Cesar George Jr. DATE: April 04, 2018 TIME: 9:17 AM PAGER/CONTACT #: [phone] Alexandra Jordan RN, RN 04/04/2018 10:39 AM Signed ISOLATION NOTE [...] hospital. SIGNATURE: Alexandra Jordan RN PATIENT NAME: Cesar George Jr. DATE: April 04, 2018 TIME: 10:37 AM PAGER/CONTACT #: [phone] Infection Prevention after hours/weekend pager: [phone] Mercedes Montalvo RN PATTERN MAKER.BILINGUAL [employer]ERGARTEN TEACHER 04/04/2018 1:07 PM Signed CONSULT HISTORY and PHYSICAL CARDIOTHORACIC SURGERY Consulting Service: Cardiothoracic Surgery Requesting Provider: [facility] Musical String Maker, Van Mcguire MD. Opinion/advice regarding: Pre-Op Open Heart Surgery Cardiothoracic Physician: Sammy Zhu M.D. NAME: Cesar George Jr. HEIGHT: 177.8 cm WEIGHT: 91 [...] antibiotics and is on isolation. . Mr. Cesar George Jr. states he is a tavarez [...] EMG - Diabetic retinopathy of both eyes ([facility]) eye exam 05/29/13 - DM (diabetes mellitus) ([facility]) Diagnosed in 2004 - Mild atherosclerosis of both carotid arteries 05/2016 ICA b/l 20-39% - Polyneuropathy ([facility]) 10/2013 axon loss, Dr. Mazin Hinojosa Neuro, likely from DM and Vitamin B12 defic - Stroke ([facility]) 10/01/13 - Ulnar neuropathy 10/2013 b/l, chronic, [...] AREA ONCE DAILY NEEDED FOR FACE RASH mtqfetxel-U3-vvD41-algal oil (METANX, ALGAL OIL,) 3 mg-35 mg-2 [...] have personally reviewed the following data: outside [facility] loaded to [employer] echo: CONCLUSIONS: - Exam indication: CAD - [...] infarction) (HCC) - 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 (HCC) Plan: [...] the requesting provider electronically. SIGNATURE:Mercedes Montalvo RN PATTERN MAKER.[facility] PAGER:[phone] Date of Service: April 04, 2018 Time of Service: 1:07 PM Tommie Gandhi Rt 04/04/2018 11:52 AM Signed Radiology Service Progress Note PATIENT NAME: Cesar George Jr. DATE OF SERVICE: April 04, 2018 TIME: 11:52 AM PATIENT IDENTITY VERIFICATION COMPLETED USING TWO (2) METHODS: Patient confirmed name verbally and ID band matches.. PATIENT GENDER DATA: Male PATIENT RELEVANT IMPLANT DATA REVIEWED: Not Applicable RADIOLOGY DEPARTMENT: General X-ray: Exam(s) Completed: Chest X-Ray PERIPHERAL IV DATA: Not applicable SIGNED BY: Tommie Wilson April 04, 2018 11:52 AM Froylan Benjamin [...] _ _ _ _ _ Per HPI: Cesar George Jr. is a 57 year old male w PMH of DM2 c/b neuropathy, HTN, HLD, PAD/PVD, and CVA who presented for evaluation for PCI vs CABG after an NSTEMI on 04/01/18. ? 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 Pt denies any chewing/swallowing [...] index is 28.8 kg/m?. overweight Wt loss CYBER DEFENSE ANALYST: 4.6% x ~1 year Pt states wt fluctuates between 195-210# HT/WT/BMI HEIGHT WEIGHT 04/27/2017 95.255 kg 07/27/2017 93.895 kg 10/12/2017 5' 10 93.895 kg 11/01/2017 89.359 kg 01/30/2018 93.895 kg 04/03/2018 5' 10 04/04/2018 91.037 kg [place] Body Weight: 75.5kg Resting Metabolic Rate: 1750 Estimated kilocalorie needs: 3079-4517 kilocalories determined by 25-30 kcal/kg @ IBW Estimated protein needs: 83-98 grams determined by 1.1-1.3g/kg @ [place] weight Estimated fluid needs: ~1646-8687 milliliters based on 1 mL per kcal [...] SIGNATURE: Froylan Benjamin RD, LD PATIENT NAME: Cesar George Jr. DATE: April 04, 2018 TIME: 12:00 PM PAGER: [phone], RD 04/04/2018 12:23 PM Signed [facility] HEART FAILURE PATIENT EDUCATION TOPIC: Survival Skills: Diet PATIENT NAME: Cesar George Jr. SERVICE DATE: April 04, 2018 Diagnosis: ADULT: Heart Failure EXEMPTION FROM DIET EDUCATION Patient/family refusal of diet education due to receipt of previous instructions Referral (Recommendation): Primary Care Provider MNT Billing Type: Initial Assess/15 min [address], LD Pager: [phone] April 04, 2018 12:22 PM Bernadine Pozo RN, RN 04/04/2018 1:07 PM Signed Wound Care Consult Team Per HANDP: DM2 c/b neuropathy, HTN, HLD, PAD/PVD, and CVA who presented for evaluation for PCI vs CABG after an NSTEMI on 04/01/18. ? Pt presented to [facility] on 04/01/18 w a 7d hx of increasing cough and SOB, CP wo radiation and diarrhea. CT PE wo PE but b/l effusions and groundglass opacities. EKG showed NSR, age unclear septal infarct, and non -specific STANDT wave abnmlities. Tn 6, BNP 600. Serial EKGs and Kylah showed no STEMI. Cdiff was pos and pt started on Flagyl. PATIENT NAME: Cesar George Jr. Reason for Assessment: For puncture wound to R plantar heel. Requested by: operations controller: Pt reports stepping on a nail 2 [...] Electronically Signed By: Bernadine Pozo RN WCCT NINA Leyva, CT 04/04/2018 7:13 PM Signed Radiology Service Progress Note PATIENT NAME: Cesar George Jr. DATE OF SERVICE: April 04, 2018 TIME: 7:13 PM PATIENT IDENTITY VERIFICATION COMPLETED USING TWO (2) METHODS: Patient confirmed name verbally and ID band matches.. PATIENT GENDER DATA: Male PATIENT RELEVANT IMPLANT DATA REVIEWED: Yes RADIOLOGY DEPARTMENT: CT; Exam(s) Completed: Brain and Cardiac PERIPHERAL IV DATA: Not applicable SIGNED BY: NINA Leyva April 04, 2018 7:13 PM Van Mcguire MD 04/05/2018 1:49 PM Signed [facility]ICINE PROGRESS NOTE (Template ID [id number]) Cesar George [id number] PRIMARY SERVICE: Hvi Clinical Cardiology [facility] [...] -- 1.9 IMAGING Reviewed ASSESSMENT AND PLAN Cesar George Jr. is a 57 year old [...] Review CD with Staff for possible repeat [facility] Echo Carotid US for CABG prep See [...] discussed with staff Blanco Paul MD Pager [phone] (please see below for after hours communication) 04/05/2018 1:28 PM For communication after 5 pm on weekdays and after 12 pm on weekends, please page the following: - Clinical Cardiology patients on all floors: page [phone] - Other Cardiology patients on J5 and J6: page [phone] - Other Cardiology patients on J7 and J8: page [phone] [facility] PH[facility] NOTE OF PERSONAL INVOLVEMENT IN CARE IMPRESSION: Patient is a 57 year old male with: #Coronary artery disease status post NSTEMI and found to have severe multivessel disease (I have reviewed his cardiac catheterization and have uploaded to [employer]) #PAD #Diabetes mellitus #Prior CVA #Mixed hyperlipidemia [...] identified. SIGNATURE: Fabiola Anders RN PATIENT NAME: Cesar George Jr. DATE: April 06, 2018 TIME: 10:17 AM PAGER/CONTACT #: [phone] [facility] PAGER: [phone] Van Mcguire MD 04/06/2018 1:32 PM Signed [facility] C[facility]ICINE PROGRESS NOTE (Template ID [id number]) Cesar George [id number] PRIMARY SERVICE: i Clinical Cardiology [facility] DAY: # 2 [...] -- 1.9 IMAGING Reviewed ASSESSMENT AND PLAN Cesar George . is a 57 year old [...] Review CD with Staff for possible repeat [facility] Echo Carotid US for CABG prep See [...] discussed with staff Blanco Paul MD Pager [phone] (please see below for after hours communication) For communication after 5 pm on weekdays and after 12 pm on weekends, please page the following: - Clinical Cardiology patients on all floors: page [phone] - Other Cardiology patients on J5 and J6: page [phone] - Other Cardiology patients on J7 and J8: page [phone] [facility] PH[facility]IC[facility] NOTE OF PERSONAL INVOLVEMENT IN [...] 1:31 PM Previous Version Mercedes Montalvo RN PATTERN MAKER.AD 04/06/2018 3:[address] staff Dr[address] [...] -- -- -- 3.2 Mercedes Montalvo RN PATTERN MAKER.AD Alonzo Asp, PT 04/07/2018 9:25 AM Signed Physical Therapy Evaluation SERVICE DATE: 04/07/2018 SERVICE TIME: 08 to 0858 ROOM: [place] [address] Recommended Discharge Disposition: Outpatient Physical Therapy PT [...] symptoms and signs-other Interventions Provided: Evaluation;Therapeutic Exercise (58579) $ Evaluation-Low (81959) Billed Units: 1 unit Therapeutic Exercise (58834) Treatment Minutes: 25 2 units Skilled Intervention(s): [...] CODE: PT 6 Clicks Score: 24 (04/07/18 0810) Mobility: Walking and Moving Around Current Status (G8978): CH (04/07/18 0810) Mobility: Walking and Moving Around Goal Status (G8979): CH (04/07/18 0810) Based on clinical assessment and [...] details for this therapy evaluation/treatment. SIGNATURE: Josie L Asp, PT PATIENT NAME: Cesar George Jr. DATE: April 07, 2018 TIME: 9:09 AM PAGER/CONTACT #: [phone] Zulema Arpit Jeffers 04/07/2018 12:34 PM Signed NUTRITION THERAPY FOLLOW-UP [...] Type: Routine Care/15 min 2 units SIGNATURE: Zulema JeffersArpit PATIENT NAME: Cesar George Jr. DATE: April 07, 2018 TIME: 12:21 PM PAGER: [phone] Van Mcguire MD 04/07/2018 2:21 PM Signed [facility]ICINE PROGRESS NOTE (Template ID [id number]) Cesar George Jr. [id number] PRIMARY SERVICE: Hvi Clinical Cardiology [facility] [...] -- 1.9 IMAGING Reviewed ASSESSMENT AND PLAN Cesar George Jr. is a 57 year old [...] with staff Arturo Mcmahan PGY-2, Internal Medicine [id number] [facility] PH[facility] NOTE OF PERSONAL INVOLVEMENT IN CARE IMPRESSION: Patient is a 57 year old male with: #Coronary artery disease status post NSTEMI and found to have severe multivessel disease (I have reviewed his cardiac catheterization and have uploaded to [employer]) #PAD #Diabetes mellitus #Prior CVA #Mixed hyperlipidemia [...] DATE: 04/07/2018 SERVICE TIME: 12:48 PM Patient: Cesar George . Age: [age] year old Sex: male Patient [...] EMG - Diabetic retinopathy of both eyes ([facility]) eye exam 05/29/13 - DM (diabetes mellitus) ([facility]) Diagnosed in 2004 - Mild atherosclerosis of both carotid arteries 05/2016 ICA b/l 20-39% - Polyneuropathy ([facility]) 10/2013 axon loss, Dr. Mazin Hinojosa Neuro, likely from DM and Vitamin B12 defic - Stroke ([facility]) 10/01/13 - Ulnar neuropathy 10/2013 b/l, chronic, [...] this patient. Dara Bush Fellow, Infectious Diseases Pager:[phone] April 07, 2018 ID STAFF I evaluated [...] follow with you. Marita Baptiste MD Pager: [phone] April 07, 2018 Previous Version Van Mcguire MD 04/08/2018 11:47 AM Signed [facility] CARDI[facility]ULAR MEDICINE PROGRESS NOTE (Template ID [id number]) Cesar George Jr. [id number] PRIMARY SERVICE: [facility] Clinical Cardiology [facility] [...] -- 1.9 IMAGING Reviewed ASSESSMENT AND PLAN Cesar George Jr. is a 57 year old [...] with staff Blanco Paul MD IM PGY1 [id number] [facility] STAFF PHYSICIAN NOTE OF PERSONAL INVOLVEMENT IN CARE IMPRESSION: Patient is a 57 year old male with: #Coronary artery disease status post NSTEMI and found to have severe multivessel disease (I have reviewed his cardiac catheterization and have uploaded to [employer]) #PAD #Diabetes mellitus #Prior CVA #Mixed hyperlipidemia #Current clostridium difficile infection ? PLAN: We appreciate the input of the CTS and ID teams. The ID team feels there is no contraindication for surgery at the current time since his diarrhea is much improved. So we will update the CTS team. Plan for CABG with Dr. Zhu as he sees gabriela. I have reviewed the documentation obtained and [...] NOTE Date: April 08, 2018 Patient Name: Cesar George Jr. Interval Events: Wbc normalized Afebrile [...] Baptiste MD Staff physician Infectious Diseases Pager: [phone] Date and Time of Service: April 08, 2018 / Van Mcguire MD 04/09/2018 11:06 AM Addendum [facility] CARDI[facility]ICINE PROGRESS NOTE (Template ID [id number]) Cesar George Jr. [id number] PRIMARY SERVICE: [facility] Clinical Cardiology [facility] [...] -- 1.9 IMAGING Reviewed ASSESSMENT AND PLAN Cesar George is a 57 year old male [...] staff Froylan Watters MD IM PGY-2 04/09/2018 [facility] STAFF PHYSICIAN NOTE OF PERSONAL INVOLVEMENT IN CARE IMPRESSION: Patient is a 57 year old male with: #Coronary artery disease status post NSTEMI and found to have severe multivessel disease (I have reviewed his cardiac catheterization and have uploaded to [email or web address]) #PAD #Diabetes mellitus #Prior CVA #Mixed hyperlipidemia [...] INSTITUTE CARDIOVASCULAR MEDICINE PROGRESS NOTE (Template ID [id number]) Cesar George JrJosh [id number] PRIMARY SERVICE: [facility] Clinical Cardiology [facility] [...] -- 1.9 IMAGING Reviewed ASSESSMENT AND PLAN Cesar George Jr. is a 57 year old [...] up CTS plans for surgery - page DREW Montalvo - Hold IVF today as I/Os [...] staff Blanco Paul MD IM PGY-1 pgr [phone] [facility] STAFF PHYSICIAN NOTE OF PERSONAL INVOLVEMENT IN CARE Impression/Plan: Mr. 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 Zhu, hopefully this week. I have reviewed the documentation obtained and documented by the Fellow/Resident/ENTERPRISE INTEGRATION DEVELOPER/PA and have reviewed and updated the problem [...] accordingly. SIGNATURE: Fabiola Anders RN PATIENT NAME: Cesar George Jr. DATE: 2018 TIME: 11:53 AM PAGER/CONTACT #: [phone] Mercedes Montalvo RN PATTERN MAKER.BILINGUAL KINDERGARTEN TEACHER 2018 5:44 PM Addendum [facility] PROGRESS NOTE Cesar George Jr. [id number] CTS staff Dr. Sammy Zhu Intended surgery: CABG PI: Conduit: Right HAND DOMINANT: poor PI 10%/poor waveform Left PI: unusable prior radial artery surgery. Per Dr. Zhu surgery: this Thursday 04/12 , confirmed with CT campus recruiter Preop testing is complete. Cleared by ID to proceed with surgery. Normal BM. I have updated Dr. Sims and CTS campus recruiter that patient is ready for surgery. ASSESSMENT [...] Surgical prep: Yes SIGNATURE: Mercedes Montalvo RN APRN.BILINGUAL KINDERGARTEN TEACHER CHECKED BY: DATE of SERVICE: 2018 TIME of SERVICE: 11:17 AM SIGNATURE: Mercedes Montalvo RN APRN.CNP PAGER:[phone] DATE of SERVICE: 2018 TIME of SERVICE: 12:46 PM Previous Version Zoe Rodriguez MD 04/11/2018 10:18 AM Signed [facility] CARDI[facility]ULAR [facility]ICINE PROGRESS NOTE (Template ID [id number]) Cesar George JrJosh [id number] PRIMARY SERVICE: [facility] Clinical [facility]iology [facility] [...] -- 1.9 IMAGING Reviewed ASSESSMENT AND PLAN Cesar George Jr. is a 57 year old [...] with staff Arturo Mcmahan PGY-2, Internal Medicine [id number] [facility] STAFF PHYSICIAN NOTE OF PERSONAL INVOLVEMENT IN CARE Impression/Plan: Mr. 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 Zhu, possibly tomorrow. I have reviewed the documentation obtained and documented by the Fellow/Resident/ENTERPRISE INTEGRATION DEVELOPER/PA and have reviewed and updated the problem list as appropriate. I have personally performed a face to face assessment of the patient and have personally participated in the rubi components. I have discussed the case and management of the patient's care. STAFF PHYSICIAN: Zoe Rodriguez MD Date of Service: 04/11/18 Previous Version Mercedes Montalvo RN PATTERN MAKER.BILINGUAL KINDERGARTEN TEACHER 04/11/2018 10:16 AM Signed [facility] PROGRESS NOTE Cesar George JrJosh [id number] CTS staff Dr. Sims Intended surgery: CABG [...] Surgical prep: Yes SIGNATURE: Mercedes Montalvo RN PATTERN MAKER.BILINGUAL KINDERGARTEN TEACHER CHECKED BY: DATE of SERVICE: 2018 TIME of SERVICE: 11:17 AM I Informed patient what to expect pre/post operatively Stressed to patient the importance of pain control for successful recovery: INFORMED OF IMPORTANCE OF GOOD PAIN ZTKBLEN-HIZDDUAZIY-blq for pain medication early when pain level is 2/0-10Informed patient (and family) what to expect pre/post operatively IMPORTANCE OF PAIN GIWZTVJ-KFVRECWIKM-doh for pain medication early, take pain medication [...] after being discharged if lived in near [place], [place] area or within [address] of [place], [place]. Discussed with Patient (Family) will need to see their PCP and Musical String Maker? following discharged- specific time frames for postop visits for Cardiac Surgery Nurse Practitioner, PCP and Musical String Maker will be discussed at time of discharged. Patient (Family) Verbalized understanding. SIGNATURE: Mercedes Montalvo RN PATTERN MAKER.BILINGUAL KINDERGARTEN TEACHER PAGER: [phone] DATE of SERVICE: 04/11/2018 TIME of SERVICE:10:16 [...] EMG - Diabetic retinopathy of both eyes ([facility]) eye exam 05/29/13 - DM (diabetes mellitus) ([facility]) Diagnosed in 2004 - Mild atherosclerosis of both carotid arteries 05/2016 ICA b/l 20-39% - Polyneuropathy ([facility]) 10/2013 axon loss, Dr. Mazin Hinojosa Neuro, likely from DM and Vitamin B12 defic - Stroke ([facility]) 10/01/13 - Ulnar neuropathy 10/2013 b/l, chronic, [...] Blood: Yes IMAGING AND TESTS: MRI neck 2017 IMPRESSION: 1. ?C3 through C7 spondylosis as [...] arteries, precluding precise assessment with CT. - [place] AMOS and ARAVIND are normal size vessels [...] scheduled. SIGNATURE: Fernando Schneider DO PATIENT NAME: Cesar George Jr. DATE: April 11, 2018 TIME: 4:00 PM PAGER/CONTACT #: Previous Version Zoe Rodriguez MD 04/12/2018 1:41 PM Signed [facility] CARDI[facility]ULAR MEDICINE PROGRESS NOTE (Template ID [id number]) Cesar George Jr. [id number] PRIMARY SERVICE: [facility] Clinical Cardiology A HOSPITAL DAY: # 8 [...] -- 1.9 IMAGING Reviewed ASSESSMENT AND PLAN Cesar George Jr. is a 57 year old [...] with staff Blanco [place]1 [place] [id number] [facility] STAFF PHYSICIAN NOTE OF PERSONAL INVOLVEMENT IN CARE Impression/Plan: Mr. George is a 57 yo with SNTEMI found to have severe multivessel CAD, being treated for CDiff (improved symptoms, cleared by ID for surgery), doing well. Scheduled for CABG later today. I have reviewed the documentation obtained and documented by the Fellow/Resident/ENTERPRISE INTEGRATION DEVELOPER/PA and have reviewed and updated the problem list as appropriate. I have personally performed a face to face assessment of the patient and have personally participated in the rubi components. I have discussed the case and management of the patient's care. STAFF PHYSICIAN: Zoe Rodriguez MD Date of Service: 04/12/18 Previous Version Progress Notes ([facility]): Ernestina Shahid LPN 03/20/2018 10:35 AM Signed Patient presents for B-12 injection. Denies any problems at this time. Patient instructed on any SE of medication, verbalized understanding and agreed to proceed with treatment. Tolerated injection well. Ernestina Shahid LPN BEDSIDE GLUCOSE Collected: 04/02/2018 Status: F Source: [place] 10:48 PM [facility] REPOSITORY TYPE CODE TESTS RESULT OUT OF REFERENCE UNITS RANGE LAB L501.080 70-110 mg/dL High BEDSIDE GLU 124 Result Comment: MANAGEMENT OF PATIENT CARE PER NURSING PROTOCOL Performed By: #### L501.080 #### [facility] Point of Care [address] [place] [address] BEDSIDE GLUCOSE Collected: 04/02/2018 Status: F Source: [place] 4:34 PM [facility] REPOSITORY TYPE CODE TESTS RESULT OUT OF REFERENCE UNITS RANGE LAB L501.080 70-110 mg/dL High BEDSIDE GLU 139 Result Comment: MANAGEMENT OF PATIENT CARE PER NURSING PROTOCOL Performed By: #### L501.080 #### [facility] Point of Care [address] [place] [address] BEDSIDE GLUCOSE Collected: 04/02/2018 Status: F Source: [place] 12:50 PM [facility] REPOSITORY TYPE CODE TESTS RESULT OUT OF REFERENCE UNITS RANGE LAB L501.080 70-110 mg/dL High BEDSIDE GLU 245 Result Comment: MANAGEMENT OF PATIENT CARE PER NURSING PROTOCOL Performed By: #### L501.080 #### [facility] Point of Care [address] [place] [address] CONSULTATION Observed: 04/02/2018 Status: F Source: [place] 10:36 AM [facility] REPOSITORY [facility] Medical Records Department [address] [place] [address] Consultation 04/01/18 1651 MR#: [id number] Acct: [id number] Name: CESAR GEORGE Rep #: [id number] : 1960 57 From: Mat Ring MD PCP: Avery Fischer DO Status: ADM IN Location: [place] [address] Problem List (1) NSTEMI (non-ST elevated myocardial [...] with an acute non- ST segment elevation CT. The patient stated that recently he has felt more short of breath and dyspneic, has been coughing, felt he may have dislocated a rib leading to chest and back discomfort, and presented to the [facility] emergency department for concerns of possible pneumonia. During his evaluation he was found to have an abnormal troponin I level. His ECG demonstrated sinus rhythm with the appearance of a septal CT of indeterminate age and nonspecific ST segment changes potentially compatible with myocardial ischemia in the lateral distribution. A chest x-ray was performed which suggested potential atelectasis versus patchy airspace disease in the basilar areas. A chest CTA scan has been performed which based upon preliminary evaluation by the [facility] emergency department staff was considered to be negative for thromboembolic disease/PE. The patient denies any previous documented cardiovascular history. He has denied any orthopnea or PND. He has had right lower extremity injury recently which is being cared for by the [facility] wound center. He denies any near- [...] (Chronic) Most likely severe diabetic neuropathy Workup [facility] Cerebrovascular disease (Chronic) Right thalamic stroke Surgical [...] report Assessment/Plan 1. Acute non-ST segment elevation CT The patient presents with a variety of symptoms. He has been found to have an abnormal troponin I level suggestive of an acute non-ST segment elevation CT. There would be concerns based upon his [...] and reviewed with the patient and the [facility] emergency department staff. This note was generated with Stratopyation software. It may contain incorrect words, spelling, and punctuation that were not noted in checking the note before signing. 04/02/18 1036 <Electronically signed by Mat Ring MD> Date Mat Ring MD Cosigner Signature (if applicable): Date CC: Avery Fischer DO; Mat Ring MD Signed BEDSIDE GLUCOSE Collected: 04/02/2018 Status: F Source: [place] 6:54 AM [facility] REPOSITORY TYPE CODE TESTS RESULT OUT OF REFERENCE UNITS RANGE LAB L501.080 70-110 mg/dL High BEDSIDE GLU 158 Result Comment: MANAGEMENT OF PATIENT CARE PER NURSING PROTOCOL Performed By: #### L501.080 #### [facility] [place] [address] CBC-COMPLETE BLOOD CNT Collected: 04/02/2018 Status: F Source: [place] NO DIFF 5:58 AM [facility] REPOSITORY TYPE CODE TESTS RESULT [...] MPV 10.3 Performed By: #### L100.0500 #### [facility] [address] [place], [address] BASIC METABOLIC Collected: 04/02/2018 Status: F Source: [place] PROFILE (BMP) 5:58 AM [facility] REPOSITORY TYPE CODE TESTS RESULT [...] 7 Performed By: #### L500.2500, L500.4100 #### [facility] [address] [place], [place], [address] LIPID PROFILE Collected: 04/02/2018 Status: F Source: [place] 5:58 AM [facility] REPOSITORY TYPE CODE TESTS RESULT [...] 13 Performed By: #### L500.2500, L500.4100 #### [facility] [address] [place], [place], [address] BNP,B-TYPE NATRIURETIC Collected: 04/02/2018 Status: F Source: [place] PEPTIDE 5:58 AM [facility] REPOSITORY Order Comment: Comments: as add on test TYPE CODE TESTS RESULT OUT OF RANGE REFERENCE UNITS LAB L503.6620 0-100 pg/mL High B-TYPE 385.0 LESLI PEP Performed By: #### L503.6620 #### [facility] [address] [place], [place], [address] Observed: 04/02/2018 Status: F Source: [place] CDIFF (MOLECULAR) 1:36 AM [facility] REPOSITORY Cdiff-Molecular Normal Reference Range = Negative RESULTS CALLED TO [facility] 04/02/18 0409 Vikas Rogers. REPORT READ BACK BY SAME. RESULTS FAXED TO [facility] INFECTION CONTROL 04/02/18 0409 Vikas Rogers. C. Diff DNA Positive-Toxigenic C. Difficile DNA Detected NAAT METHOD Testing was performed using nucleic acid amplification ORGANISM 1: Toxigenic C. difficile DNA Performed By: #### M100.6796 #### [facility] [address] [place] [address], [address] Observed: 04/02/2018 Status: F Source: [place] ENTERIC PATHOGEN 12:00 AM [facility] PANEL STOOL REPOSITORY EP PANEL [...] Not Detected Performed By: #### M100.637 #### [facility] [address] [place] [address], [address] BEDSIDE GLUCOSE Collected: 04/01/2018 Status: F Source: [place] 10:39 PM [facility] REPOSITORY TYPE CODE TESTS RESULT OUT OF REFERENCE UNITS RANGE LAB L501.080 70-110 mg/dL High BEDSIDE GLU 230 Result Comment: MANAGEMENT OF PATIENT CARE PER NURSING PROTOCOL Performed By: #### L501.080 #### [facility] Point of Care [address] [place] [id number] HISTORY AND PHYSICAL Observed: 04/01/2018 Status: F Source: [place] EXAM 5:57 PM [facility] REPOSITORY [facility] Medical Records Department [address] [place] [address] History and Physical 06/16/18 1630 MR#: [id number] Acct: [id number] Name: CESAR GEORGE Rep #: [id number] : 1960 57 From: Mini Marcelino MD PCP: Avery Fischer DO Status: ADM IN Y Location: [place] [address] Problem List (1) NSTEMI (non-ST elevated myocardial infarction) Status: Acute (2) Type 2 diabetes mellitus with diabetic polyneuropathy Status: Chronic Qualifiers: Diabetes mellitus senior living insulin use: with senior living use Qualified Code(s): E11.42 - Type 2 diabetes mellitus with diabetic polyneuropathy; Z79.4 - buttermaker continuous churn (current) use of insulin (3) Hypertension Status: [...] likely severe diabetic neuropathy Workup [facility] Cerebrovascular disease (Chronic) Right thalamic stroke Medical [...] dosing Code Visit Inpatient E AND M: 85120 Init Hosp L3 04/01/18 8021 <Electronically signed by Mini Marcelino MD> Date Mini Marcelino MD Cosigner Signature: Date (if applicable) CC: Mini Marcelino MD; Avery Fischer DO Signed BEDSIDE GLUCOSE Collected: 04/01/2018 Status: F Source: [place] 5:35 PM [facility] REPOSITORY TYPE CODE TESTS RESULT OUT OF REFERENCE UNITS RANGE LAB L501.080 70-110 mg/dL High BEDSIDE GLU 166 Result Comment: MANAGEMENT OF PATIENT CARE PER NURSING PROTOCOL Performed By: #### L501.080 #### [facility] Point of Care [address] [place] [address]. [place] [address] TROPONIN-I Collected: 04/01/2018 Status: F Source: [place] 5:00 PM [facility] REPOSITORY Order Comment: 'TROP' Serial [...] Not every elevated troponin is indicative of CT. These values should be used with clinical judgement in examining the patient's clinical picture for diagnosis. To establish a diagnosis of CT versus myocardial injury, there must be a demonstrated rise and/or fall in the troponin values, in addition to ischemic symptoms, EKG changes, new regional wall motion abnormality, and/or angiographical evidence. PLEASE NOTE: REFERENCE RANGES EDITED 18 Performed By: #### L501.4010 #### [facility] [address] [place], [place], [id number] TROPONIN-I Collected: 04/01/2018 Status: F Source: [place] 4:35 PM [facility] REPOSITORY Order Comment: 'TROP' Serial [...] Not every elevated troponin is indicative of CT. These values should be used with clinical judgement in examining the patient's clinical picture for diagnosis. To establish a diagnosis of CT versus myocardial injury, there must be a demonstrated rise and/or fall in the troponin values, in addition to ischemic symptoms, EKG changes, new regional wall motion abnormality, and/or angiographical evidence. PLEASE NOTE: REFERENCE RANGES EDITED 18 Performed By: #### L501.4010 #### [facility] [address] [facility] [place], [address] EMERGENCY DEPARTMENT Observed: 04/01/2018 Status: F Source: [place] SUMMARY 3:58 PM [facility] REPOSITORY [facility] Medical Records Department [address] [place] [address] Emergency Department Summary 04/01/18 1239 MR#: [id number] Acct: [id number] Name: CESAR GEORGE Rep #: [id number] : 1960 57 From: Agustín Emanuel MD PCP: Avery Fischer DO Status: REG ER - ER Visit [...] C. difficile testing. Will recommend rest, ice, nblm-wnm-syqrout remedies for pain. Monitor for new or [...] 4. Diarrhea This note was generated with Strat[employer]ation software. It may contain incorrect words, spelling, and punctuation that were not noted in review of the chart prior to signing ED Disposition - Plan for ED Patient: Chief Complaint: Back Instructions: Self-Care for Strains and Sprains Referrals: Avery Escalante, DO [Primary Care Provider] - What to do if you have Problems For any increased pain, shortness of breath, bleeding, nausea or vomiting, chest pain, or any unexpected problems, contact your Primary Care Provider. Call [facility] ([phone]) or report to the closest Emergency Room. Call 911 if necessary. 04/01/181557 <Electronically signed by Agustín Emanuel MD> Date Agustín Emanuel MD Cosigner Signature (If Indicated): Date CC: Avery Fischer DO DISCHARGE INSTRUCTION Observed: 04/01/2018 Status: F Source: [place] 3:58 PM [facility] REPOSITORY [facility] Medical Records Department [address] [place] [address] Discharge Instruction 04/01/18 1402 MR#: [id number] Acct: [id number] Name: CESAR GEORGE Rep #: [id number] : 1960 57 From: Agustín Emanuel MD PCP: Avery Fischer DO Status: [...] your Primary Care Provider. Call [facility] ([phone]) or report to the closest Emergency Room. Call 911 if necessary. 04/01/181557 <Electronically signed by Agustín Emanuel MD> Date Agustín Emanuel MD Cosigner Signature (If Indicated): Date CC: Avery Fischer DO CTA CHEST W/WO Observed: 04/01/2018 Status: F Source: [place] CONTRAST 3:50 PM [facility] REPOSITORY [facility] Imaging Services [address] [place] [address] CTA Chest W/WO Contrast MR#: [id number] Acct: [id number] Name: CESAR GEORGE Rep #: [id number] : 1960 M 57 From: Aubrie Chatman MD PCP: Avery Fischer DO Status: ADM IN Study: CTA Chest W/WO Contrast Date of Exam: 04/01/18 Exam# [id number] Ordering Dr: Agustín Emanuel MD STUDY: CTA CHEST REASON FOR [...] 16:54 EDT , Service support , CC: Agustín Emanuel MD; Avery Fischer DO Turning And Beading Machine Operator: Signed LUMBAR SPINE 2 OR 3 Observed: 04/01/2018 Status: F Source: [place] VIEWS 12:38 PM [facility] REPOSITORY [facility] Imaging Services [address] [place] [address] Lumbar Spine 2 or 3 Views MR#: [id number] Acct: [id number] Name: CESAR GEORGE Rep #: [id number] : 1960 M 57 From: Aubrie Chatman MD PCP: Avery Fischer DO Status: REG ER Study: Lumbar Spine 2 or 3 Views Date of Exam: 04/01/18 Exam# [id number] Ordering Dr: Agustín Emanuel MD STUDY: X-RAY - LUMBAR SPINE [...] 13:40 EDT , Service support , CC: Agustín Emanuel MD; Avery Fischer DO Turning And Beading Machine Operator: Signed THORACIC SPINE 3 Observed: 04/01/2018 Status: F Source: [place] VIEWS 12:38 PM [facility] REPOSITORY [facility] Imaging Services [address] [place] [address] Thoracic Spine 3 Views MR#: [id number] Acct: [id number] Name: CESAR GEORGE Rep #: [id number] : 1960 M 57 From: Aubrie Chatman MD PCP: Avery Fischer DO Status: REG ER Study: Thoracic Spine 3 Views Date of Exam: 04/01/18 Exam# [id number] Ordering Dr: Agustín Emanuel MD STUDY: X-RAY - THORACIC SPINE [...] 13:42 EDT , Service support , CC: Agustín Emanuel MD; Avery Fischer DO Turning And Beading Machine Operator: Signed RIBS UNI MIN 3V Observed: 04/01/2018 Status: F Source: [place] W/PA CHEST 12:38 PM [facility] REPOSITORY [facility] Imaging Services [address] [place] [address] Ribs Uni Min 3V w/PA Chest MR#: [id number] Acct: [id number] Name: CESAR GEORGE Rep #: [id number] : 1960 M 57 From: Aubrie Chatman MD PCP: Avery Fischer DO Status: REG ER Study: Ribs Uni Min 3V w/PA Chest Date of Exam: 04/01/18 Exam# [id number] Ordering Dr: Agustín Emanuel MD STUDY: X-RAY - UNILATERAL RIBS [...] 13:47 EDT , Service support , CC: Agustín Emanuel MD; Avery Fischer DO Turning And Beading Machine Operator: Signed HIP 2-3 VIEWS WITH Observed: 04/01/2018 Status: F Source: [place] PELVIS 12:38 PM [facility] REPOSITORY [facility] Imaging Services [address] [place] [address] Hip 2-3 Views with Pelvis MR#: [id number] Acct: [id number] Name: CESAR GEORGE Rep #: [id number] : 1960 M 57 From: Aubrie Chatman MD PCP: Avery Fischer DO Status: REG ER Study: Hip 2-3 Views with Pelvis Date of Exam: 04/01/18 Exam# [id number] Ordering Dr: Agustín Emanuel MD STUDY: X-RAY - PELVIS AND [...] 13:49 EDT , Service support , CC: Agustín Emanuel MD; Avery Fischer DO Turning And Beading Machine Operator: Signed CBC W/DIFF, AUTOMATED Collected: 04/01/2018 Status: C Source: [place] 12:30 PM [facility] REPOSITORY TYPE CODE TESTS RESULT [...] 04/03/18 1301 PATH REV previously reported as: Senait ferrara Performed By: #### L100.0100 #### [facility] [address] [place], [address] BASIC METABOLIC Collected: 04/01/2018 Status: F Source: [place] PROFILE (BMP) 12:30 PM [facility] REPOSITORY TYPE CODE TESTS RESULT [...] 8 Performed By: #### L500.2500, L501.4010 #### [facility] [address] [place], [address] TROPONIN-I Collected: 04/01/2018 Status: F Source: [place] 12:30 PM [facility] REPOSITORY TYPE CODE TESTS RESULT OUT OF RANGE REFERENCE UNITS LAB L501.4010 <0.045 ng/mL High alert 6.020 TROPONIN-I Result Comment: Critical Result(s) Called at: 15:32:32 04/01/2018 by: Salome hernandez TROPONIN-I EXPECTED VALUES <0.045 Negative 0.045 - 0.590 Consistent with Cardiac Damage > OR = 0.600 Critical Value Not every elevated troponin is indicative of CT. These values should be used with clinical judgement in examining the patient's clinical picture for diagnosis. To establish a diagnosis of CT versus myocardial injury, there must be a demonstrated rise and/or fall in the troponin values, in addition to ischemic symptoms, EKG changes, new regional wall motion abnormality, and/or angiographical evidence. PLEASE NOTE: REFERENCE RANGES EDITED 18 Performed By: #### L500.2500, L501.4010 #### [facility] [address] [place], [address] BNP,B-TYPE NATRIURETIC Collected: 04/01/2018 Status: F Source: [place]PTIDE 12:30 PM [facility] REPOSITORY TYPE CODE TESTS RESULT OUT OF RANGE REFERENCE UNITS LAB L503.6620 0-100 pg/mL High B-TYPE 564.5 LESLI PEP Performed By: #### L503.6620 #### [facility] [address] [place], [address] PROTHROMBIN TIME W/INR Collected: 04/01/2018 Status: F Source: [place] 12:30 PM [facility] REPOSITORY TYPE CODE TESTS RESULT OUT OF RANGE REFERENCE UNITS LAB L300.4150 11.7-14.9 SECONDS Normal PROTIME 14.9 LAB L300.4200 Normal INR 1.2 Performed By: #### L300.3900, L300.4310 #### [facility] [address] [place], [address] PARTIAL THROMBOPLAST Collected: 04/01/2018 Status: F Source: [place] TIME 12:30 PM [facility] REPOSITORY TYPE CODE TESTS RESULT OUT OF RANGE REFERENCE UNITS LAB L300.4310 24.1-36.2 Seconds Normal PTT 31.7 Performed By: #### L300.3900, L300.4310 #### [facility] [address] [place], [address] PROGRESS Observed: 03/20/2018 Status: COMPLETED Source: [place] 10:33 AM [facility] REPOSITORY HNO ID: [id number] Author: Ernestina Shahid LPN Service: (none) Author Type: (none) Type: Progress Notes Filed: 03/20/2018 10:35 AM Note Text: Patient presents for B-12 injection. Denies any problems at this time. Patient instructed on any SE of medication, verbalized understanding and agreed to proceed with treatment. Tolerated injection well. Ernestina Shahid LPN CNNURSE Observed: 03/20/2018 Status: COMPLETED Source: [place] 10:30 AM [facility] REPOSITORY Nurse Visit (FAMPWS) CESAR GEORGE JR. ([id number]) 1960 M Date Time Provider Department 03/20/18 10:[address] NURSE FAMPWS During your visit today, we recorded the following information about you: Ernestina Shahid LPN 03/20/2018 10:35 AM Signed Patient presents for B-12 injection. Denies any problems at this time. Patient instructed on any SE of medication, verbalized understanding and agreed to proceed with treatment. Tolerated injection well. Ernestina Shahid LPN Referring Provider: AVERY ESCALANTE [[id number]] Allergies As of Date: 03/20/2018 Noted Allergy Reaction LIPITOR (ATORVASTATIN CALCIUM) 01/07/2015 15 - Contraindication- Medical Olsen* Comments: Elevated LFTs and elevated CK level METFORMIN 03/01/2013 6 - Diarrhea Date Reviewed: 01/30/2018 Reviewed by: Teodora Cochran LPN - Fully Assessed Reason for [...] [E53.8] INVALID FOR* PAD (peripheral artery disease) ([facility]) [I73.9] INVALID FOR* Small vessel disease ([facility]) [I99.9] INVALID FOR* DM (diabetes mellitus), type 2 with neurologica*INVALID FOR* Diabetes mellitus with background retinopathy (*INVALID FOR*07/13/2016 Type 1 diabetes mellitus with mild nonprolifera*INVALID FOR*06/08/2016 Other vitreous opacities - Both Eyes [H43.399] INVALID FOR* Lens replaced by other means - Both Eyes [Z96.1]INVALID FOR*07/13/2016 CVA (cerebral vascular accident) ([facility]) [I63.9] INVALID FOR* Type 2 diabetes, controlled, [...] 03/20/18 PROGRESS Observed: 02/17/2018 Status: COMPLETED Source: [place] 10:44 AM [facility] REPOSITORY HNO ID: [id number] Author: Ernestina Shahid LPN Service: (none) Author Type: (none) Type: Progress Notes Filed: 02/17/2018 10:50 AM Note Text: Patient presents for B-12 and TD injection. Denies any problems at this time. Patient instructed on any SE of medication, verbalized understanding and agreed to proceed with treatment. Tolerated injection well. Ernestina Shahid LPN CNNURSE Observed: 02/17/2018 Status: COMPLETED Source: [place] 10:30 AM [facility] Nurse Visit (FAMPWS) CESAR GEORGE JR. ([id number]) 1960 M Date Time Provider Department 02/17/18 10[facility] [facility] During your visit today, we recorded the following information about you: Ernestina Shahid LPN 02/17/2018 10:50 AM Signed Patient presents for B-12 and TD injection. Denies any problems at this time. Patient instructed on any SE of medication, verbalized understanding and agreed to proceed with treatment. Tolerated injection well. Ernestina Shahid LPN Referring Provider: AVERY ESCALANTE [[id number]] Allergies As of Date: 02/17/2018 Noted Allergy Reaction LIPITOR (ATORVASTATIN CALCIUM) 01/07/2015 15 - Contraindication- Medical Olsen* Comments: Elevated LFTs and elevated CK level METFORMIN 03/01/2013 6 - Diarrhea Date Reviewed: 01/30/2018 Reviewed by: Teodora Cochran LPN - Fully Assessed Reason for [...] [E53.8] INVALID FOR* PAD (peripheral artery disease) ([facility]) [I73.9] INVALID FOR* Small vessel disease ([facility]) [I99.9] INVALID FOR* DM (diabetes mellitus), type 2 with neurologica*INVALID FOR* Diabetes mellitus with background retinopathy (*INVALID FOR*07/13/2016 Type 1 diabetes mellitus with mild nonprolifera*INVALID FOR*06/08/2016 Other vitreous opacities - Both Eyes [H43.399] INVALID FOR* Lens replaced by other means - Both Eyes [Z96.1]INVALID FOR*07/13/2016 CVA (cerebral vascular accident) ([facility]) [I63.9] INVALID FOR* Type 2 diabetes, controlled, [...] 2 VIEWS Observed: 02/16/2018 Status: F Source: [place] 3:28 PM [facility] REPOSITORY [facility] Imaging Services [address] [place] [address] Calcaneus min 2 Views MR#: [id number] Acct: [id number] Name: CESAR GEORGE Rep #: [id number] : 1960 M 57 From: Mazin Torres MD PCP: Avery Fischer DO Status: REG RCR Study: Calcaneus min 2 Views Date of Exam: 02/16/18 Exam# [id number] Ordering Dr: Mary Kay Vance MD STUDY: [...] Mary Kay Vance MD; Avery Fischer DO Turning And Beading Machine Operator: Signed ANKLE MIN 3 VIEWS Observed: 02/16/2018 Status: F Source: [place] 2:55 PM [facility] REPOSITORY [facility] Imaging Services [address] [address] Ankle min 3 Views MR#: [id number] Acct: [id number] Name: CESAR GEORGE Rep #: [id number] : 1960 M 57 From: Mazin Torres MD PCP: Avery Fischer DO Status: REG RCR Study: Ankle min 3 Views Date of Exam: 02/16/18 Exam# [id number] Ordering Dr: Mary Kay Vance MD STUDY: [...] Mary Kay Vance MD; Avery Fischer DO Turning And Beading Machine Operator: Signed FOOT MIN 3 VIEWS Observed: 02/16/2018 Status: F Source: [place] 2:55 PM [facility] REPOSITORY [facility] Imaging Services [address] [place] [address] Foot min 3 Views MR#: [id number] Acct: [id number] Name: CESAR GEORGE Rep #: [id number] : 1960 M 57 From: Mazin Torres MD PCP: Avery Fischer DO Status: REG RCR Study: Foot min 3 Views Date of Exam: 02/16/18 Exam# [id number] Ordering Dr: Mary Kay Vance MD STUDY: [...] radiographic findings of osteomyelitis. Electronically Signed: Mazin De Leonsalvatoreshaunna, at 16:37 EDT Tel , Service support , CC: Mary Kay Vance MD; Avery Fischer DO Turning And Beading Machine Operator: Signed Observed: 02/16/2018 Status: F Source: [place] CULTURE, DEEP WOUND 2:00 PM [facility] REPOSITORY Comments: RIGHT HEEL ULCER.. Gram Stain [...] 1 S (NF) indicates non-formulary drug at [facility]. Approval by Infectious Disease Specialist [...] 0.5 S (NF) indicates non-formulary drug at [facility]. Approval by Infectious Disease Specialist required before non-formulary drugs may be ordered and/or dispensed. * CLSI guidelines does not recommend testing of cephalosporins. This interpretation is deduced from Beta-lactam/penicillin results. Cult, Anaerobic No anaerobic bacteria isolated. Performed By: #### M100.1500 #### [facility] [address] [place], [address] POTASSIUM Collected: 02/09/2018 Status: F Source: [place] 1:37 PM [facility] REPOSITORY TYPE CODE TESTS RESULT OUT OF REFERENCE UNITS RANGE LAB K 3.7-5.1 mmol/L Potassium 4.7 Performed By: #### K1 #### [facility] [address] [place], [place] [address] PROGRESS Observed: 01/31/2018 Status: COMPLETED Source: [place] 7:30 AM [facility] REPOSITORY HNO ID: [id number] Author: Avery Escalante Service: (none) Author Type: Physician Type: Progress Notes Filed: 01/31/2018 7:38 AM Note Text: Patient presents with: Follow Up: 3 months HPI: Cesar George Jr. is a 57 year old [...] with average BP's in the 120-130/60-80 range. Cesar likes to exercise by walking. PAST MEDICAL HISTORY Diagnosis Date - Cataract b/l, eye exam 05/29/13 - CTS (carpal tunnel syndrome) 10/2013 b/l, chronic, Dr. 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 Mazin Hinojosa Neuro, likely from DM and Vitamin B12 defic - Stroke ([facility]) 10/01/13 - Ulnar neuropathy 10/2013 b/l, chronic, [...] three times daily as needed (muscle spasm). tgbsqkcyr-R1-lnW09-algal oil (METANX, ALGAL OIL,) 3 mg-35 mg-2 [...] by mouth every 6 hours as needed. OPH-Tvxglwxsneexa-Ysdqgfv-Caff 162 mg-110 mg -152 mg-32.4 mg tab [...] arise. - Discussed diabetic education issues of long term care pharmacist diabetic complications, diet, medications- side effects and [...] agreed with the plan. Avery Escalante DO [address] [place] [address] CNOV Observed: 01/30/2018 Status: COMPLETED Source: [place] 1:40 PM [facility] REPOSITORY Office Visit (FAMPWS) CESAR GEORGE JR. ([id number]) 1960 M Date Time Provider Department 01/30/18 1:40 PM AVERY ESCALANTE During your visit today, we recorded the following information about you: Temperature Pulse Respiration Blood pressure 97.2 degrees 80/minute 16/minute 120/80 Weight 93.9 kg Avery Escalante DO 01/30/2018 2:23 PM Signed Okay to use Desonide cream for feet as needed (dry skin) Avery Escalante DO 01/31/2018 7:38 AM Signed Patient presents with: Follow Up: 3 months HPI: Cesar George Jr. is a 57 year old [...] with average BP's in the 120-130/60-80 range. Cesar likes to exercise by walking. PAST MEDICAL HISTORY Diagnosis Date - Cataract b/l, eye exam 05/29/13 - CTS (carpal tunnel syndrome) 10/2013 b/l, chronic, Dr. 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 Mazin Hinojosa Neuro, likely from DM and Vitamin B12 defic - Stroke ([facility]) 10/01/13 - Ulnar neuropathy 10/2013 b/l, chronic, [...] three times daily as needed (muscle spasm). jikldlnss-A6-bhS82-algal oil (METANX, ALGAL OIL,) 3 mg-35 mg-2 [...] by mouth every 6 hours as needed. PRG-Nxtttlemapmfw-Mdnkplu-Caff 162 mg-110 mg -152 mg-32.4 mg tab [...] arise. - Discussed diabetic education issues of senior living diabetic complications, diet, medications- side effects and [...] agreed with the plan. Avery Escalante DO [address] [place] [address] Referring Provider: AVERY ESCALANTE [[id number]] Allergies As of Date: 01/30/2018 Noted Allergy Reaction LIPITOR (ATORVASTATIN CALCIUM) 01/07/2015 15 - Contraindication- Medical Olsen* Comments: Elevated LFTs and elevated CK level METFORMIN 03/01/2013 6 - Diarrhea Date Reviewed: 01/30/2018 Reviewed by: Teodora Cochran LPN - Fully Assessed Reason for [...] this encounter GABAPENTIN 300 MG CAPSULE >> Teodora Cochran LPN 01/30/2018 1:46 PM >> TEODORA COCHRAN LPN TueJan 30, 2018 1:46 PM Changed dose Problem [...] (HCC) [I73.9] INVALID FOR* Small vessel disease ([facility]) [I99.9] INVALID FOR* DM (diabetes mellitus), type 2 with neurologica*INVALID FOR* Diabetes mellitus with background retinopathy (*INVALID FOR*07/13/2016 Type 1 diabetes mellitus with mild nonprolifera*INVALID FOR*06/08/2016 Other vitreous opacities - Both Eyes [H43.399] INVALID FOR* Lens replaced by other means - Both Eyes [Z96.1]INVALID FOR*07/13/2016 CVA (cerebral vascular accident) ([facility]) [I63.9] INVALID FOR* Type 2 diabetes, controlled, [...] METABOLIC PANEL Collected: 01/25/2018 Status: F Source: [place] 12:20 PM [facility] REPOSITORY TYPE CODE TESTS RESULT OUT OF REFERENCE UNITS RANGE LAB TP 6.3-8.0 g/dL Protein, Total 7.7 LAB ALB 3.9-4.9 g/dL Albumin 4.1 LAB CA 8.5-10.2 mg/dL Calcium, Total 9.8 LAB TBIL 0.2-1.3 mg/dL Bilirubin, Total 0.4 LAB ALKP 36-108 U/L Alkaline Phosphatase 76 LAB AST 14-40 U/L AST 32 LAB GLU 74-99 mg/dL Glucose High 103 Result Comment: The [place] Diabetes Association (ADA) provides guidance for cutoff [...] Standards of Medical Care in Diabetes 2016, [place] Diabetes Association. Diabetes Care. 2016.39(Suppl 1). LAB [...] GFR. Performed By: #### CMP, HBA1C #### [facility] [address] [place], [place] [address] HEMOGLOBIN A1C Collected: 01/25/2018 Status: F Source: [place] 12:20 PM [facility] REPOSITORY TYPE CODE TESTS RESULT OUT OF REFERENCE UNITS RANGE LAB HGBA1C 4.3-5.6 % High Hemoglobin A1c 6.1 LAB HBA0 mg/dL Est. Average Glucose 128 Result Comment: eAG: (Estimated average glucose) is a calculated value from HgbA1c and is brewery representative of the average blood glucose level in the last 2-3 month period. Performed By: #### CMP, HBA1C #### [facility] [address] [place], [place] [address] PROGRESS Observed: 01/18/2018 Status: COMPLETED Source: [place] 10:58 AM [facility] HNO ID: [id number] Author: Ernestina Shahid LPN Service: (none) Author Type: (none) Type: Progress Notes Filed: 01/18/2018 11:00 AM Note Text: Patient presents for B-12 injection. Denies any problems at this time. Patient instructed on any SE of medication, verbalized understanding and agreed to proceed with treatment. Tolerated injection well. Ernestina Shahid LPN CNNURSE Observed: 01/18/2018 Status: COMPLETED Source: [place] 10:30 AM [facility] Nurse Visit (FAMPWS) CESAR GEORGE JR. ([id number]) 1960 M Date Time Provider Department 01/18/18 10:[address] NURSE ROJAS During your visit today, we recorded the following information about you: Ernestina Shahid LPN 01/18/2018 11:00 AM Signed Patient presents for B-12 injection. Denies any problems at this time. Patient instructed on any SE of medication, verbalized understanding and agreed to proceed with treatment. Tolerated injection well. Ernestina Shahid LPN Referring Provider: AVERY ESCALANTE [[id number]] Allergies As of Date: 01/18/2018 Noted Allergy Reaction LIPITOR (ATORVASTATIN CALCIUM) 01/07/2015 15 - Contraindication- Medical Olsen* Comments: Elevated LFTs and elevated CK level METFORMIN 03/01/2013 6 - Diarrhea Date Reviewed: 11/07/2017 Reviewed by: Terrence Kendrick RN - Fully Assessed Reason for Visit: B-12 Injection [247] Primary Visit Diagnosis:Vitamin B12 deficiency [E53.8] Prescriptions as of 01/18/2018 Sig: BASAGLAR KWIKPEN U-100 INSULI* INJECT 20 UNITS [...] wasted: none. Route: Intramuscular Site: left deltoid Bilingual Executive Assistant: SOLO. Lot #: [id number] Expiration Date: 05/16/2019 The [...] CTR HISTORY Observed: 01/09/2018 Status: F Source: [place] AND PHYSICAL 2:23 PM [facility] REPOSITORY [facility] [address] [place] [address] Wound Ctr History AND Physical 01/04/18 1900 MR#: [id number] Acct: [id number] Name: CESAR GEORGE Rep #: [id number] : 1960 57 From: Mary Kay Vance [...] campus Cerebrovascular disease (Chronic) Right thalamic stroke Surgical [...] Date Recorded By Document 01/04/18 10:51 MARJORIE [id number] 01/04/18 11:07 MARJORIE Wound Center Nurse 1 [...] right index finger noted during debridement. Apply tegan with adaptic covering to all three ulcers with advice also given about moisturizing skin adequately. Desuaded from using Latex gloves at night. 100% cotton gloves preferred. Patient will benefit from a CCB to increase vasodilation and blood flow to his digits due to his history of raynaud's. Other chronic wound care instructions/plan as addressed with Dr. Aparicio. Follow up in 1 week. 01/09/18 1423 <Electronically signed by Mary Kay Vance MD> Date Mary Kay Vance MD CC: Signed WOUND CTR HISTORY Observed: 12/31/2017 Status: F Source: [place] AND PHYSICAL 12:40 PM [facility] REPOSITORY [facility] [address] [place] [address] Wound Ctr History AND Physical 12/28/17 1713 MR#: [id number] Acct: [id number] Name: CESAR GEORGE Rep #: [id number] : 1960 57 From: Abigail Aparicio DPM PCP: Avery Fischer DO Status: REG RCR Y Location: ADDENDUM by Abigail Aparicio DPM on 12/31/17 at 1239 Code Visit His medical records were obtained from [facility]. He previously saw Dr. Reagan. On November [...] Most likely severe diabetic neuropathy Workup f [facility] Cerebrovascular disease (Chronic) Right thalamic stroke Surgical [...] Recorded Date Recorded By Document 12/28/17 13:13 [id number] 12/28/17 13:36 Wound Center Nurse 1 [Ulcer Assessment] #4 R HEEL -Current Size (cm) - Length 0.5 - Nurse 2 - General Ulcer CM Notes Start: 12/28/17 13:13 Freq: Status: Active Protocol: Activity Type Activity Date Activity User E-Sign Co-Sign Detail Recorded Client Recorded Date Recorded By Document 12/28/17 14:03 [id number] 12/28/17 14:22 Musculoskeletal: No Tenderness to Palpation of Joints [...] Recorded Date Recorded By Document 12/28/17 14:03 [id number] 12/28/17 14:22 Wound Center Nurse 2 #4 [...] reassured there are no signs of infection. Tegan dry dressings were applied. He is advised [...] signed by Abigail Aparicio DPM> Date Abigail Alessandra DPM CC: Signed PROGRESS Observed: 12/19/2017 Status: COMPLETED Source: [place] 10:38 AM [facility] REPOSITORY HNO ID: [id number] Author: Ernestina Shahid LPN Service: (none) Author Type: (none) Type: Progress Notes Filed: 12/19/2017 10:41 AM Note Text: Patient presents for B-12 injection. Denies any problems at this time. Patient instructed on any SE of medication, verbalized understanding and agreed to proceed with treatment. Tolerated injection well. Ernestina Shahid LPN CNNURSE Observed: 12/19/2017 Status: COMPLETED Source: [place] 10:30 AM [facility] Nurse Visit (FAMPWS) CESAR GEORGE JR. ([id number]) 1960 M Date Time Provider Department 12/19/17 10:[address] [facility] During your visit today, we recorded the following information about you: Ernestina Shahid LPN 12/19/2017 10:41 AM Signed Patient presents for B-12 injection. Denies any problems at this time. Patient instructed on any SE of medication, verbalized understanding and agreed to proceed with treatment. Tolerated injection well. Ernestina Shahid LPN Referring Provider: AVERY ESCALANTE [[id number]] Allergies As of Date: 12/19/2017 Noted Allergy [...] wasted: none. Route: Intramuscular Site: left deltoid Bilingual Executive Assistant: SOLO. Lot #: [id number] Expiration Date: 03/16/2019 The date due for the next injection is one month Ernestina Zehra NICOLE Problem List As Of Date 12/19/2017 Noted [...] [E53.8] INVALID FOR* PAD (peripheral artery disease) ([facility]) [I73.9] INVALID FOR* Small vessel disease ([facility]) [I99.9] INVALID FOR* DM (diabetes mellitus), type 2 with neurologica*INVALID FOR* Diabetes mellitus with background retinopathy (*INVALID FOR*07/13/2016 Type 1 diabetes mellitus with mild nonprolifera*INVALID FOR*06/08/2016 Other vitreous opacities - Both Eyes [H43.399] INVALID FOR* Lens replaced by other means - Both Eyes [Z96.1]INVALID FOR*07/13/2016 CVA (cerebral vascular accident) ([facility]) [I63.9] INVALID FOR* Type 2 diabetes, controlled, [...] SUMMARY (1) Observed: 12/14/2017 Status: F Source: [place] 7:14 PM [facility] REPOSITORY [facility] [address] [place] [address] Fax REHABILITATION SERVICES DISCHARGE SUMMARY MR#: [id number] Acct: [id number] Name: CESAR GEORGE Rep #: [id number] : 1960 57 From: Martha Flores MPT Referring Dr.: Surjit LINDQUIST Status: REG RCR Insurance: SELF PAY INSURANCE HP - PT D/C Summary It has been my pleasure to treat CESAR GEORGE under orders from AMEENA Salcedo.TJANAS for the diagnosis of non displaced fx [...] please feel free to call me at [phone]. Thank you for the referral of this patient. Sincerely, Martha Flores <Electronically signed by Martha Flores MPT> 12/14/17 1914 CC: Avery Escalante DO; Surjit LINDQUIST Signed PROGRESS Observed: 11/21/2017 Status: COMPLETED Source: [place] 11:01 AM [facility] REPOSITORY HNO ID: [id number] Author: Ernestina Shahid LPN Service: (none) Author Type: (none) Type: Progress Notes Filed: 11/21/2017 11:05 AM Note Text: Patient presents for B-12 injection. Denies any problems at this time. Patient instructed on any SE of medication, verbalized understanding and agreed to proceed with treatment. Tolerated injection well. Ernestina Shahid LPN POTASSIUM Collected: 11/14/2017 Status: F Source: [place] 4:57 PM [facility] REPOSITORY TYPE CODE TESTS RESULT OUT OF REFERENCE UNITS RANGE LAB K 3.7-5.1 mmol/L Potassium 4.4 Performed By: #### K1, MG1 #### [facility] [address] [place], [place] [id number] MAGNESIUM Collected: 11/14/2017 Status: F Source: [place] 4:57 PM [facility] REPOSITORY TYPE CODE TESTS RESULT OUT OF REFERENCE UNITS RANGE LAB MG 1.7-2.3 mg/dL Magnesium 2.0 Performed By: #### K1, MG1 #### [facility] [address] [place], [place] [address] ALLERGIES ALLERGIES DATE TYPE / NAME / CODE REACTION SEVERITY SOURCE CODE 10/18/2018 Drug metformin/[id number] Diarrhea Unknown [employer] Allergy/41 34(RXNORM) [facility] [id number]([facility]) Repository 10/18/2018 Drug atorvastatin/F0060 Unknown Unknown [employer] Allergy/41 82274(RXNORM) [facility] [id number]([facility]) Repository 11/01/2017 Drug [id number] OTHER: SEE C Bernal Class/4195 REDUCTASE [facility] 36037(SNOM INHIBITORS [place] [facility]) Repository 01/07/2015 DRUG ATORVASTATIN CONTRAINDICA [facility] INGREDI/41 CALCIUM [facility] [id number]( [place] [facility]) Repository 03/01/2013 DRUG METFORMIN DIARRHEA [facility] INGREDI/41 [facility] [id number]( [place] [facility]) Repository [id number] ATORVASTATIN [facility] 06(SNOMED CALCIUM [facility]) Repository NG/[id number] METFORMIN [facility] 06(SNOMED [facility]) Repository NG/[id number] [id number] [facility] 06(SNOMED REDUCTASE [facility]) INHIBITORS Repository ENCOUNTERS ENCOUNTERS ADMIT/DISCHARGE ACCOUNT NUMBER ADMITTING ENCOUNTER LOCATION SOURCE CLASS 11/08/2018 [id number] [facility] ding:PT Repository 11/07/2018/11/08/19 [id number] Ambulatory [address] [place] Repository 11/01/2018 [id number] Ambulatory General acute hospital ding:DC Repository 10/30/2018/10/30/19 [id number] Ambulatory [address] [place] Repository 10/25/2018/10/25/19 [id number] Ambulatory [address] Repository 10/18/2018 [id number] Ambulatory General acute hospital ding:MRI Repository 10/18/2018/10/18/19 [id number] Ambulatory BMSBuilding: Gina 19 [facility]MS.[facility] Repository 10/12/2018/10/13/20 [id number] Ambulatory [address] Main [place] Repository 10/06/2018 [id number] Ambulatory General acute hospital ding:MRI Repository 10/04/2018/10/04/20 [id number] Ambulatory [address] ding:CR Repository 09/29/2018 [id number] Ambulatory General acute hospital ding:LAB Repository 09/29/2018/09/29/20 [id number] Ambulatory BMSBuilding: [employer] 18 BMS.[facility] Repository 09/18/2018 [id number] Ambulatory General acute hospital ding:LAB Repository 09/15/2018/09/15/20 [id number] Ambulatory [employer] Gina 18 [facility] ding:CR Repository 09/11/2018/09/11/20 [id number] Ambulatory [address] Repository 08/23/2018/09/15/20 [id number] Ambulatory Gina Gina 18 [facility] ding:DC Repository 08/16/2018/08/16/20 [id number] Ambulatory Gina [employer] 18 [facility] ding:DC Repository 08/16/2018/08/16/20 [id number] Ambulatory Gina Gina 18 [facility] ding:CR Repository 08/11/2018/08/14/20 [id number] Ambulatory [address] Repository 07/27/2018 [id number] [facility] 07/26/2018/07/26/20 [id number] Ambulatory [address] Repository 07/21/2018/07/21/20 [id number] Ambulatory [address] Repository 07/19/2018/07/20/20 [id number] Ambulatory [address] Repository 07/19/2018/07/19/20 [id number] Ambulatory BMSBuilding: Gina 18 [facility] Repository 07/14/2018/07/16/20 [id number] Ambulatory Gina [employer] ding:CR Repository 07/06/2018 [id number] [facility] [employer] [facility] Repository 06/28/2018/06/28/20 [id number] Ambulatory Bernal[address] Repository 06/28/2018/07/16/20 [id number] Ambulatory [employer] 18 [facility] ding:WC Repository 06/28/2018 [id number] Ambulatory BMSBuilding: [employer] [facility] Repository 06/21/2018 [id number] Ambulatory BMSBuilding: [employer] [facility] Repository 06/15/2018/06/15/20 [id number] Ambulatory [address] Repository 06/15/2018/06/16/20 [id number] Ambulatory [address] [place] Repository 06/14/2018/06/15/20 [id number] Ambulatory [address] [place] Repository 06/14/2018/06/16/20 [id number] Ambulatory [address] ding: Repository 06/14/2018 [id number] Ambulatory BMSBuilding: [facility] Repository 06/07/2018/06/07/20 [id number] Ambulatory [address] Repository 06/07/2018 [id number] Ambulatory BMSBuilding: [facility] Repository 05/31/2018 [id number] Ambulatory BMSBuilding: [facility] Repository 05/25/2018/05/25/20 [id number] Ambulatory [address] Other [place] Repository 05/25/2018/05/25/20 [id number] Ambulatory [address] MEDICAL Repository CENTERBuildi ng:AGCARDHWW 05/24/2018 [id number] Ambulatory BMSBuilding: [facility] Repository 05/10/2018/05/12/20 [id number] Ambulatory [address] [place] Repository 05/08/2018/05/15/20 [id number] Ambulatory [address] [place] Repository 05/05/2018/05/05/20 [id number] Ambulatory [address] [place] Repository 05/03/2018/05/05/20 [id number] Ambulatory [address] [place] Repository 04/28/2018/04/28/20 [id number] Ambulatory [address] [place] Repository 04/28/2018/04/28/20 [id number] Ambulatory [address] [place] Repository 04/28/2018/04/28/20 [id number] Ambulatory [address] [place] Repository 04/28/2018/04/28/20 [id number] Ambulatory [address] [place] Repository 04/26/2018 [id number] Ambulatory General acute hospital ding: Repository 04/24/2018/04/25/20 [id number] Ambulatory [address] [place] Repository 04/05/2018/04/07/20 [id number] Ambulatory [address] [place] Repository 04/05/2018/04/07/20 [id number] Ambulatory [address] Repository 04/04/2018/04/14/20 [id number] Ambulatory [address] Repository 04/04/2018/04/06/20 [id number] [place]patient [place] [address] Encounter [facility] Repository 04/04/2018/04/04/20 [id number] Ambulatory [address] Repository 04/03/2018/04/19/20 [id number] MARISELA FRANCISCO Inpatient [place] [address] Encounter [facility] Repository 04/01/2018/04/03/20 [id number] [facility] Inpatient [employer] ding:PCURoom Repository : BTQ257Hwe: 1 04/01/2018 [id number] [place] Ambulatory BMSBuilding: Gina BMS.[facility] Repository 04/01/2018 [id number] [place] Ambulatory BMSBuilding: Gina BMS..[facility] Repository 04/01/2018 [id number] [place] Ambulatory BMSBuilding: Gina BMS.[facility] Repository 04/01/2018 [id number] [place] Ambulatory BMSBuilding: Gina BMS.[facility] Repository 04/01/2018 [id number] [place] Ambulatory BMSBuilding: Gina BMS.[facility] Repository 04/01/2018 [id number] [place] Ambulatory BMSBuilding: Gina BMS.[facility] Repository 04/01/2018/04/03/20 [id number] Ambulatory BMSBuilding: Gina 18 [facility] Repository 03/30/2018/04/15/20 [id number] Ambulatory [address] ding: Repository 03/30/2018 [id number] Ambulatory BMSBuilding: Gina [facility] Repository 03/20/2018/03/21/20 [id number] Ambulatory [address] Repository 03/16/2018/03/16/20 [id number] Ambulatory [employer] [address] ding:WC Repository 03/16/2018 [id number] Ambulatory BMSBuilding: [facility] Repository 03/09/2018 [id number] Ambulatory BMSBuilding: [facility] Repository 03/02/2018 [id number] Ambulatory BMSBuilding: [facility] Repository 02/23/2018 [id number] Ambulatory BMSBuilding: [facility] Repository 02/17/2018/04/06/20 [id number] Ambulatory [address] Repository 02/16/2018 [id number] Ambulatory BMSBuilding: [facility] Repository 02/09/2018 [id number] Ambulatory [facility] Repository 02/09/2018/02/14/20 [id number] Ambulatory [address] ding: Repository 02/09/2018 [id number] Ambulatory BMSBuilding: [facility] Repository 01/30/2018/02/01/20 [id number] Ambulatory [address] Repository 01/25/2018 [id number] Ambulatory [facility] Repository 01/18/2018/01/20/20 [id number] Ambulatory [address] Repository 01/18/2018 [id number] Ambulatory BMSBuilding: [facility] Repository 01/11/2018/01/15/20 [id number] Ambulatory [address] ding:WC Repository 01/11/2018 [id number] Ambulatory BMSBuilding: [facility] Repository 01/04/2018 [id number] Ambulatory BMSBuilding: [facility] Repository 12/19/2017/12/21/19 [id number] Ambulatory [address] Repository 12/14/2017/12/14/19 [id number] Ambulatory [address] ding:PT Repository 11/21/2017/11/23/19 [id number] Ambulatory [address] Repository 11/14/2017/11/14/19 [id number] Ambulatory [address] Repository 11/10/2017 [id number] Ambulatory BMSBuilding: Gina [facility] Repository PAYERS PAYERS ENCOUNTER GUARANTOR PAYER SUBSCRIBER SOURCE 11/08/2018 CESAR D Primary CESAR D Gina [id number] SR Insurance:CARESOURCEP PORTERDOB: [address] Number: [id number] [facility] 78263Ntu: 330 [id number] Repository [phone] () Date:2016-02-15[address]ATTN: [place] [address]TH: 11/08/2018 Secondary NOT GIVENUNK [employer] Insurance:SELF PAY [facility] Number: Effective Repository Date:2018-09-18 11/01/2018 CESAR D Primary CESAR D Gina [id number] SR Insurance:CARESOURCEP PORTERDOB: [address] Number: [id number] Hospital 307[address]Hqe: [phone]) [id number] Repository [phone] () Date:2018-08-01[address]ATTN: [place] [address]HI: 11/01/2018 Secondary NOT GIVENUNK [employer] Insurance:SELF PAY [facility] Number: Effective Repository Date:2018-09-16 10/18/2018 CESAR D Primary CESAR D [employer] [id number] SR Insurance:CARESOURCEP PORTERDOB: [address] Number: [id number] Hospital [address]Fgv: 330 [id number] Repository [phone] () Date:2018-09-25[address]ATTN: [place] [address]CJ: 10/18/2018 Secondary NOT GIVENUNK [employer] Insurance:SELF PAY [facility] Number: Effective Repository Date:2018-09-25 10/18/2018 CESAR D Primary CESAR D Gina [id number] SR Insurance:CARESOURCEP PORTERDOB: [address] Number: [id number] Hospital 6[address]Bxi: (311) [id number] Repository [phone] (HP) Date:2018-10-13[address]ATTN: [place] [address]AX: 10/18/2018 Secondary NOT GIVENUNK Gina Insurance:SELF PAY [facility] Number: Effective Repository Date:2018-10-18 10/06/2018 CESAR D Primary CESAR D Gina [id number] SR Insurance:CARESOURCEP PORTERDOB: Community [address] [place], [place] [address]icy Number: [id number] Hospital 510[address]Vnu: ([phone]) [id number] Repository [phone] (HP) Date:2018-09-27 [address]ATTN: [place] [address]YV: 10/06/2018 Secondary NOT GIVENUNK Gina Insurance:SELF PAY [facility] Number: Effective Repository Date:2018-09-27 10/04/2018 CESAR D Primary CESAR D [employer] [id number] SR Insurance:CARESOURCEP [address]DOB: [address] Number: [id number] Hospital [address]Ieb: [phone]) [id number] Repository [phone] () Date:2018-07-06[address]ATTN: [place] [address]KF: 10/04/2018 Secondary NOT GIVENUNK Gina Insurance:SELF PAY [facility] Number: Effective Repository Date:2018-09-16 09/29/2018 CESAR D Primary CESAR D [employer] [id number] SR Insurance:CARESOURCEP PORTERDOB: [address] olicy Number: [id number] Hospital 275[address]Vki: [phone]) [id number] Repository [phone] () Date:2018-09-29[address]ATTN: [place] [address]XD: 09/29/2018 Secondary NOT GIVENUNK [employer] [facility] Number: Effective Repository Date:2018-09-29 09/29/2018 CESAR D Primary CESAR Hope Gina [id number] SR Insurance:CARESOURCEP PORTERDOB: [address] Number: [id number] Hospital [address]Pzs: ([phone]) [id number] Repository [phone] (HP) Date:2018-09-27 [address]ATTN: [place] [address]UR: 09/29/2018 Secondary NOT GIVENUNK [employer] Insurance:SELF PAY [facility] Number: Effective Repository Date:2018-09-29 09/18/2018 CESAR D Primary CESAR Jayy Gina [id number] SR Insurance:CARESOURCEP PORTERDOB: [address] Number: [id number] Hospital [address]Txa: [phone]) [id number] Repository [phone] (HP) Date:2018-09-18[address]ATTN: [place] [address]GE: 09/18/2018 Secondary NOT GIVENUNK Gina Insurance:SELF PAY [facility] Number: Effective Repository Date:2018-09-18 09/15/2018 CESAR D Primary CESAR Hope Gina [id number] SR Insurance:CARESOURCEP PORTERDOB: [address] Number: [id number] Hospital 511[address]Fqv: ([phone]) [id number] Repository [phone] (HP) Date:2018-07-06[address]ATTN: [place] [address]YX: 09/15/2018 Secondary NOT GIVENUNK [employer] Insurance:SELF PAY [facility] Number: Effective Repository Date:2018-08-17 08/23/2018 CESAR D Primary CESAR Fuentes [id number] SR Insurance:CARESOURCEP PORTERDOB: [address] Number: [id number] Hospital [address]Wju: ([phone]) [id number] Repository [phone] (HP) Date:2018-08-01[address]ATTN: [place] [address]EJ: 08/23/2018 Secondary NOT GIVENUNK Gina Insurance:SELF PAY [facility] Number: Effective Repository Date:2018-08-17 08/16/2018 CESAR D Primary CESAR D Gina [id number] SR Insurance:CARESOURCEP PORTERDOB: [address] Number: [id number] Hospital [address]Wex: ([phone]) [id number] Repository [phone] (HP) Date:2018-08-01[address]ATTN: [place] [address]IJ: 08/16/2018 Secondary NOT GIVENUNK [employer] Insurance:SELF PAY [facility] Number: Effective Repository Date:2018-08-01 08/16/2018 CESAR D Primary CESAR D [employer] [id number] SR Insurance:CARESOURCEP PORTERDOB: Community [address] [place] [address] Number: [id number] Hospital 560[address]Vzd: ([phone]) [id number] Repository [phone] () Date:2018-07-06[address]ATTN: [place] [address]CT: 08/16/2018 Secondary NOT GIVENUNK Gina Insurance:SELF PAY [facility] Number: Effective Repository Date:2018-07-17 07/27/2018 CESAR D Primary CESAR D Gina [id number] SR Insurance:CARESOURCEP P[address]TERDOB: [address] Number: [id number] Hospital 66361Las: ([phone]) [id number] Repository [phone] (HP) Date:2018-05-22[address]ATTN: [place] [address]NP: 07/27/2018 Secondary NOT GIVENUNK Gina [facility] Number: Effective Repository Date:2018-07-17 07/19/2018 CESAR D Primary CESAR Jayy Gina [id number] SR Insurance:CARESOURCEP PORTERDOB: [address] Number: [id number] Hospital 317[address]Muz: ([phone]) [id number] Repository [phone] (HP) Date:2018-07-14[address]ATTN: [place] [address]IX: 07/19/2018 Secondary NOT GIVENUNK [employer] Insurance:SELF PAY [facility] Number: Effective Repository Date:2018-07-19 07/14/2018 CESAR D Primary CESAR Jayy [employer] [id number] SR Insurance:CARESOURCEP PORTERDOB: [address] Number: [id number] Hospital 313[address]Omf: ([phone]) [id number] Repository [phone] (HP) Date:2018-07-06[address]ATTN: [place] [address]PO: 07/14/2018 Secondary NOT GIVENUNK Gina Insurance:SELF PAY [facility] Number: Effective Repository Date:2018-07-06 07/06/2018 CESAR D Primary CESAR Quirozoster [id number] SR Insurance:CARESOURCEP PORTERDOB: [address] Number: [id number] Hospital 37[address]Vsv: (123) [id number] Repository [phone] (HP) Date:2018-06-28 [address]ATTN: [place] [address]LU: 07/06/2018 Secondary NOT GIVENUNK Gina Insurance:SELF PAY [facility] Number: Effective Repository Date:2018-06-28 06/28/2018 CESAR Primary CESAR Fuentes [id number] SR Insurance:CARESOURCEP PORTERDOB: [address] Number: [id number] Hospital 250[address]Uff: ([phone]) [id number] Repository [phone] (HP) Date:2018-05-22 [address]ATTN: [place] [address]RJ: 06/28/2018 Secondary NOT GIVENUNK [employer] Insurance:SELF PAY [facility] Number: Effective Repository Date:2018-06-17 06/28/2018 CESAR Primary CESAR Fuentes [id number] SR Insurance:CARESOURCEP PORTERDOB: Community [address] [place] [address] Number: [id number] Hospital 69947Fhp: 330 [id number] Repository [phone] () Date:2018-05-22 [address]ATTN: [place] [address]HB: 06/28/2018 Secondary NOT GIVENUNK [employer] Insurance:SELF PAY [facility] Number: Effective Repository Date:2018-06-28 06/21/2018 CESAR Primary CESAR Fuentes [id number] SR Insurance:CARESOURCEP PORTERDOB: Community [address] [place] [address] Number: [id number] Hospital 72583Cdr: 330 [id number] Repository [phone] () Date:2018-05-22 [address]ATTN: [place] [address]QP: 06/21/2018 Secondary NOT GIVENUNK [employer] Insurance:SELF PAY [facility] Number: Effective Repository Date:2018-06-21 06/14/2018 CESAR Primary CESAR Fuentes [id number] SR Insurance:CARESOURCEP PORTERDOB: Community [address] [place], [place] [address] Number: [id number] Hospital 7[address]Zul: ([phone]) [id number] Repository [phone] () Date:2018-05-22 [address]ATTN: [place] [address]AM: 06/14/2018 Secondary NOT GIVENUNK Gina Insurance:SELF PAY [facility] Number: Effective Repository Date:2018-05-22 06/14/2018 CESAR Primary CESAR Fuentes [id number] SR Insurance:CARESOURCEP PORTERDOB: Community [address] [place] [address] Number: [id number] Hospital 930[address]Brk: 330 [id number] Repository [phone] (HP) Date:2018-05-22[address]ATTN: [place] [address]TG: 06/14/2018 Secondary NOT GIVENUNK Gina Insurance:SELF PAY [facility] Number: Effective Repository Date:2018-06-14 06/07/2018 CESAR Primary CESAR Fuentes [id number] SR Insurance:CARESOURCEP PORTERDOB: [address] Number: [id number] Hospital 968[address]Vbn: 330 [id number] Repository [phone] () Date:2018-05-22[address]ATTN: [place] [address]YB: 06/07/2018 Secondary NOT GIVENUNK Gina Insurance:SELF PAY [facility] Number: Effective Repository Date:2018-06-07 05/31/2018 CESAR Primary CESAR Fuentes [id number] SR Insurance:CARESOURCEP PORTERDOB: [address] Number: [id number] Hospital 92[address]Jsn: 330 [id number] Repository [phone] () Date:2018-05-22 [address]ATTN: [place] [address]OD: 05/31/2018 Secondary NOT GIVENUNK [employer] Insurance:SELF PAY [facility] Number: Effective Repository Date:2018-05-31 05/25/2018 CESAR Jayy [facility] CESAR Hope [facility] Insurance:SUZANNE GILLIS[facility] [id number] MEDICAIDPolicy [id number] Repository STATE [address] Number: [address] [place] [address] [id number] 07317Gzp: (330) Date: [phone] () 05/24/2018 CESAR Primary CESAR Fuentes [id number] SR Insurance:CARESOURCEP PORTERDOB: Community [address] [place] [address] Number: [id number] Hospital 20[address]Pcy: 330 [id number] Repository [phone] (HP) Date:2018-05-22[address]ATTN: [place] [address]LQ: 05/24/2018 Secondary NOT GIVENUNK [employer] Insurance:SELF PAY [facility] Number: Effective Repository Date:2018-05-24 04/26/2018 CESAR Primary CESAR Fuentes [id number] SR Insurance:CARESOURCEP PORTERDOB: [address] Number: [id number] Hospital 85947Uca: (478) [id number] Repository [phone] () Date:2017-12-28 [address]ATTN: [place] [address]EZ: 04/26/2018 Secondary NOT GIVENUNK [employer] Insurance:SELF PAY [facility] Number: Effective Repository Date:2018-04-16 04/01/2018 CESAR Primary CESAR Fuentes [id number] SR Insurance:CARESOURCEP PORTERDOB: [address] Number: [id number] Hospital 324[address]Qns: [id number] Repository [phone] Date:2018-04-01P O -2 () [address]ATTN: [place] [address]CG: 04/01/2018 Secondary NOT GIVENUNK Gina Insurance:SELF PAY [facility] Number: Effective Repository Date:2018-04-01 04/01/2018 CESAR Primary CESAR Fuentes [id number] SR Insurance:CARESOURCEP PORTERDOB: [address] Number: [id number] Hospital 226[address]Ieo: [id number] Repository [phone] Date:2018-04-01P O -2 (HP) [address]ATTN: [place] [address]JP: 04/01/2018 Secondary NOT GIVENUNK Gina Insurance:SELF PAY [facility] Number: Effective Repository Date:2018-04-01 04/01/2018 CESAR Primary CESAR Fuentes [id number] SR Insurance:CARESOURCEP PORTERDOB: Community [address] [place] [address] Number: [id number] Hospital 837[address]Dzb: [id number] Repository [phone] Date:2018-04-01 O -2 (HP) [address]ATTN: [place] [address]AD: 04/01/2018 Secondary NOT GIVENUNK Gina Insurance:SELF PAY [facility] Number: Effective Repository Date:2018-04-01 04/01/2018 CESAR Primary CESAR Fuentes [id number] SR Insurance:CARESOURCEP PORTERDOB: [address] Number: [id number] Hospital 769[address]Fqj: [id number] Repository [phone] Date:2018-04-01 O -2 (HP) [address]ATTN: [place] [address]YC: 04/01/2018 Secondary NOT GIVENUNK [employer] Insurance:SELF PAY [facility] Number: Effective Repository Date:2018-04-01 04/01/2018 CESAR Primary CESAR Fuentes [id number] SR Insurance:CARESOURCEP PORTERDOB: [address] Number: [id number] Hospital 37[address]Jrw: [id number] Repository [phone] Date:2018-04-01 O -2 (HP) [address]ATTN: [place] [address]QU: 04/01/2018 Secondary NOT GIVENUNK Gina Insurance:SELF PAY [facility] Number: Effective Repository Date:2018-04-01 04/01/2018 CESAR Primary CESAR Fuentes [id number] SR Insurance:CARESOURCEP PORTERDOB: Community [address] [place], [place] [address]ic Number: [id number] Hospital 94111Ivx: [id number] Repository [phone] Date:2018-04-01P O -2 (HP) [address]ATTN: [place] [address]YY: 04/01/2018 Secondary NOT GIVENUNK Gina Insurance:SELF PAY [facility] Number: Effective Repository Date:2018-04-01 04/01/2018 CESAR Primary CESAR Fuentes [id number] SR Insurance:CARESOURCEP PORTERDOB: [address] Number: [id number] Hospital 288[address]Shk: [id number] Repository [phone] Date:2018-04-01P O -2 () [address]ATTN: [place] [address]YS: 04/01/2018 Secondary NOT GIVENUNK Gina Insurance:SELF PAY [facility] Number: Effective Repository Date:2018-04-01 04/01/2018 CESAR Primary CESAR Fuentes [id number] SR Insurance:CARESOURCEP PORTERDOB: [address] Number: [id number] Hospital 00476Pgd: (903) [id number] Repository [phone] () Date:2018-04-01 [address]ATTN: [place] [address]OB: 04/01/2018 Secondary NOT GIVENUNK [employer] Insurance:SELF PAY [facility] Number: Effective Repository Date:2018-04-01 03/30/2018 CESAR Primary CESAR Fuentes [id number] SR Insurance:CARESOURCEP PORTERDOB: [address] Number: [id number] Hospital [address]Wun: (570) [id number] Repository [phone] () Date:2017-12-28[address]ATTN: [place] [address]YA: 03/30/2018 Secondary NOT GIVENUNK [employer] Insurance:SELF PAY [facility] Number: Effective Repository Date:2018-03-17 03/30/2018 CESAR Primary CESAR Fuentes [id number] SR Insurance:CARESOURCEP PORTERDOB: [address] Number: [id number] Hospital [address]Rbv: (330 [id number] Repository [phone] () Date:2017-12-28 [address]ATTN: [place] [address]AE: 03/30/2018 Secondary NOT GIVENUNK Gina Insurance:SELF PAY [facility] Number: Effective Repository Date:2018-03-30 03/16/2018 CESAR Primary CESAR Fuentes [id number] SR Insurance:CARESOURCEP PORTERDOB: [address] Number: [id number] Hospital [address]Kmy: [id number] Repository [phone] Date:2017-12-28P O -2 () [address]ATTN: [place] [address]IO: 03/16/2018 Secondary NOT GIVENUNK Gina Insurance:SELF PAY [facility] Number: Effective Repository Date:2018-02-14 03/16/2018 CESAR Primary CESAR Fuentes [id number] SR Insurance:CARESOURCEP PORTERDOB: [address] Number: [id number] Hospital [address]19[address]Fgh: 330 [id number] Repository [phone] () Date:2017-12-28 [address]ATTN: [place] [address]HO: 03/16/2018 Secondary NOT GIVENUNK [employer] Insurance:SELF PAY [facility] Number: Effective Repository Date:2018-03-16 03/09/2018 CESAR Primary CESAR Fuentes [id number] SR Insurance:CARESOURCEP PORTERDOB: [address] Number: [id number] Hospital 56326Qko: ([phone]) [id number] Repository [phone] (HP) Date:2017-12-28 [address]ATTN: [place] [address]RO: 03/09/2018 Secondary NOT GIVENUNK Gina Insurance:SELF PAY [facility] Number: Effective Repository Date:2018-03-09 03/02/2018 CESAR Primary CESAR Fuentes [id number] SR Insurance:CARESOURCEP PORTERDOB: [address] Number: [id number] [address]Ubj: [id number] Repository [phone]~330 Date:2017-12-28P O -2 () [address]ATTN: [place] [address]YH: 03/02/2018 Secondary NOT GIVENUNK Gina Insurance:SELF PAY [facility] Number: Effective Repository Date:2018-03-02 02/23/2018 CESAR Primary CESAR Fuentes [id number] SR Insurance:CARESOURCEP PORTERDOB: [address] Number: [id number] [address]Bhy: [id number] Repository [phone] Date:2017-12-28 O -2 () [address]ATTN: [place] [address]CA: 02/23/2018 Secondary NOT GIVENUNK [employer] Insurance:SELF PAY [facility] Number: Effective Repository Date:2018-02-23 02/16/2018 CESAR Primary CESAR Fuentes [id number] SR Insurance:CARESOURCEP PORTERDOB: [address] Number: [id number] [address]Sbp: [id number] Repository [phone] Date:2017-12-28P O -2 () [address]ATTN: [place] [address]GE: 02/16/2018 Secondary NOT GIVENUNK [employer] Insurance:SELF PAY [facility] Number: Effective Repository Date:2018-02-16 02/09/2018 ECSAR Primary CESAR Fuentes [id number] SR Insurance:CARESOURCEP PORTERDOB: [address] Number: [id number] [address]Kyy: [id number] Repository [phone] Date:2017-12-28P O -2 () [address]ATTN: [place] [address]FX: 02/09/2018 Secondary NOT GIVENUNK Gina Insurance:SELF PAY [facility] Number: Effective Repository Date:2018-01-15 02/09/2018 CESAR Primary CESAR Fuentes [id number] SR Insurance:CARESOURCEP PORTERDOB: [address] Number: [id number] [address]Xae: [id number] Repository [phone] Date:2017-12-28P O -2 () [address]ATTN: [place] [address]MK: 02/09/2018 Secondary NOT GIVENUNK Gina Insurance:SELF PAY [facility] Number: Effective Repository Date:2018-02-09 01/18/2018 CESAR Primary CESAR Fuentes [id number] SR Insurance:CARESOURCEP PORTERDOB: [address] Number: [id number] [facility] [address]Bxv: [id number] Repository [phone] Date:2017-12-28P O -2 () [address]ATTN: [place] [address]CX: 01/18/2018 Secondary NOT GIVENUNK Gina Insurance:SELF PAY [facility] Number: Effective Repository Date:2018-01-18 01/11/2018 CESAR Primary CESAR Fuentes [id number] SR Insurance:CARESOURCEP [facility] [place] Number: [id number] [address]Zji: [id number] Repository [phone] Date:2017-12-28P O -2 () [address]ATTN: [place] [address]VD: 01/11/2018 Secondary NOT GIVENUNK Gina Insurance:SELF PAY [facility] Number: Effective Repository Date:2017-12-28 01/11/2018 CESAR Primary CESAR Fuentes [id number] SR Insurance:CARESOURCEP PORTERDOB: [address] Number: [id number] [address]Dkw: [id number] Repository [phone]~330 Date:2017-12-28P O -2 () [address]ATTN: [place] [address]LI: 01/11/2018 Secondary NOT GIVENUNK Gina Insurance:SELF PAY [facility] Number: Effective Repository Date:2018-01-11 01/04/2018 CESAR Primary CESAR Fuentes [id number] SR Insurance:CARESOURCEP PORTERDOB: [address] Number: [id number] [address]Lkn: [id number] Repository [phone] Date:2017-12-28P O -2 () [address]ATTN: [place] [address]NP: 01/04/2018 Secondary NOT GIVENUNK [employer] Insurance:SELF PAY [facility] Number: Effective Repository Date:2018-01-04 12/14/2017 CESAR Primary CESAR Fuentes [id number] SR Insurance:CARESOURCEP PORTERDOB: [address] Number: [id number] [address]Jmt: [id number] Repository [phone] Date:2016-02-15P O -2 () [address]ATTN: [place] [address]WP: 12/14/2017 Secondary NOT GIVENUNK Gina Insurance:SELF PAY [facility] Number: Effective Repository Date:2017-10-04 11/10/2017 CESAR Primary NOT GIVENUNK Gina [id number] SR Insurance:SELF PAY [address] [address]Hiz: Number: Effective Repository [phone]~330 Date:2017-11-01 ()
== END ==
PROVIDERS: Physician Assistant Medical; Family Provider Student in an Organized Health Care Education/Training Program; PCP Student in an Organized Health Care Education/Training Program; Referring Provider Nurse Practitioner Family; Visit Provider Nurse Practitioner Family
DX: R06.09 Other forms of dyspnea (principal); I11.0 Hypertensive heart disease with heart failure; I50.9 Heart failure, unspecified; I25.10 Atherosclerotic heart disease of native coronary artery without angina pectoris; E11.8 Type 2 diabetes mellitus with unspecified complications; I73.89 Other specified peripheral vascular diseases; I25.2 Old myocardial infarction; Z95.1 Presence of aortocoronary bypass graft
CPT/HCPCS: 36415; 80048; 83880; 93798

== ENCOUNTER 2018-10-04 10:15 | Outpatient (RCR) | payer MEDICAID, SELFPAY ==
[2018-07-19 12:53] VITALS: BMI 30.7
[2018-09-16 01:25] VITALS: BP 122/68
== END 2018-10-04 10:30 | disposition home or self-care (01) ==
LOC: CR 10:15
PROVIDERS: Family Provider Student in an Organized Health Care Education/Training Program; PCP Student in an Organized Health Care Education/Training Program; Visit Provider Internal Medicine Cardiovascular Disease
DX: I25.10 Atherosclerotic heart disease of native coronary artery without angina pectoris (principal); I21.4 Non-ST elevation (NSTEMI) myocardial infarction; Z95.1 Presence of aortocoronary bypass graft; E11.8 Type 2 diabetes mellitus with unspecified complications; I73.89 Other specified peripheral vascular diseases; I11.0 Hypertensive heart disease with heart failure; I50.9 Heart failure, unspecified; Z71.3 Dietary counseling and surveillance
CPT/HCPCS: 93798

== ENCOUNTER → 2018-10-18 10:44 | Outpatient (CLI) | payer MEDICAID, SELFPAY ==
[2018-10-18 09:50] VITALS: BMI 30.4
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
--- NOTE | 2018-10-18 11:40 | RAD_ITS ---
STUDY: X-RAY CHEST REASON FOR EXAM: Male, 58 years old. MRI clearance. TECHNIQUE: Frontal and lateral views of the chest. COMPARISON: April 01, 2018 FINDINGS: There is stable low volume to the lung pope. There is no demonstrated pleural abnormality. There is borderline cardiomegaly with sternotomy wires which are new. There are changes of coronary artery bypass grafting. Normal mediastinum and kaci. Normal visualized pulmonary arteries. Normal visualized aortic arch and descending thoracic aorta. Normal visualized thoracic spine. Normal visualized ribs, clavicles, and shoulders. There is no demonstrated abnormality of the visualized soft tissue structures of the upper abdomen. RAD/Chest PA and Lateral IMPRESSION: New sternotomy wires and changes of coronary artery bypass grafting since the prior study. The patient is cleared for MRI as these changes should be MRI-compatible. Electronically Signed: Surjit Gibbons MD at 12:09 EST , Service support ,
== END ==
PROVIDERS: Family Provider Student in an Organized Health Care Education/Training Program; PCP Student in an Organized Health Care Education/Training Program; Referring Provider Physician Assistant; Visit Provider Physician Assistant
DX: M17.12 Unilateral primary osteoarthritis, left knee (principal); M22.42 Chondromalacia patellae, left knee
CPT/HCPCS: 71046; 73721

== ENCOUNTER 2018-12-01 08:30 | Outpatient (RCR) | payer MEDICAID, SELFPAY ==
--- NOTE | 2018-09-20 13:16 | HP.PTEVAL_ITS ---
Patient's Visit Information RICK GEORGE is a 58 year old M referred to Physical Therapy by Lio Lombardi MD with a diagnosis of imbalance from neuropathy. Date of Evaluation: 09/20/18 Physical Therapist: Martha Flores - Visit Plan Frequency: 2x /Week Duration: 6 Weeks Plan: 2X/ week for 6 weeks for balance activities, LE strength, gait training, L gastroc and HS stretching with HEP - Subjective Findings: Pt had open heart surgery ( triple by pass... had the marker)...cardiac rehab until Oct 04. He went back to see Neurologist and they told him that he had another white spot in his brain ( another small stroke) but he doesnt remember having it. He reports that his balance is worse than what it used to be. He has not fallen in 2 weeks but he did fall 3 times in a wekk. Pt reports that he got down to get something off the ground and he felt that something ripped in his L leg and by the end of the night he cant bend it and it feels like it is on fire. He has an appointment on Tuesday with Danie Edmonds. Pt reports that his biggest complaint at this point is balance and ankle strength. Pt reports some dizziness. He gets it when he bends over and tries to get back up. He did blood work on Tuesday cause he gets some SOB especially with bending over and standing up. Pt only sleeps 3-4 hours a night. Pt goes up the stairs with a hand rail with alternating and then goes down the stairs backwards - Pain L leg Pain Intensity (Out of 10): 6 Ribs Pain Intensity (Out of 10): 6 L hand Pain Intensity (Out of 10): 4 - Objective Gait: walks with decrease stance time on the L (decrease calf girth on the L), WBOS and L forefoot abduction. LE MMT: hip flex L 4-/5 and R 4/5, knee flex, R 4-/5 and L 3+/5, R knee ext 4/5 and L 4-/5, R hip abd 4/5 and L 4-/5, B hip ext R 4/5 and L 3+/5, R knee flex 4/5 and L 3+/5. Pt is not able to walk on heels and toes fully, especially on the L due to weakness. FGA: 06/15. CATSIB 33. Pt is unable to walk with head turns without having to stop and regain balance each direction before able to take a step. Tight L sided gastroc and hamstring - Balance Scores Functional Gait Assessment Score: 8 % Disability: 73.3400 CATSIB Score (Max score 120 seconds): 33 - Goals Goal 1:: I HEP Goal Time Frame: 4-6 Weeks Goal 2:: Increase FGA by 5 points to 13 to decrease fall risk. Goal Time Frame: 4-6 Weeks Goal 3:: Increase LE strength by 1/2 muscle grade to decrease fall risk ( hip flex L 4-/5 and R 4/5, knee flex, R 4-/5 and L 3+/5, R knee ext 4/5 and L 4-/5, R hip abd 4/5 and L 4-/5, B hip ext R 4/5 and L 3+/5, R knee flex 4/5 and L 3+/5. Pt is not able to walk on heels and toes fully, especially on the L due to weakness) Goal Time Frame: 4-6 Weeks Goal 4:: Be able to walk with more of an equal WB gait pattern Goal Time Frame: 4-6 Weeks - Rehabilitation Potential Rehabilitation Potential: Good - Anticipated Interventions Patient/Client Instruction: Educate patient on: Plan of Care For the Purpose of:: To decrease pain, To improve nutrient delivery to tissue, To improve muscle performance and motor function, To improve ability to perform ADL's, To increase tolerance to activity/condition/position, To improve performance and independence with ADL's, To decrease level of supervision to perform tasks, To improve ability of physical actions for home/community/work/leisure, To improve gait and locomotor functions, To improve health of tissue, To decrease soft tissue restriction, To increase flexibility/ROM, To improve balance, To improve safety with gait Therapeutic Exercise to Include: Strength training, Body mechanics, Flexibilty training, Gait and locomotor training, Neuromotor development, Active ROM, Dynamic Lumbar Stabilization For the Purpose of:: To decrease pain, To improve nutrient delivery to tissue, To improve muscle performance and motor function, To improve ability to perform ADL's, To increase tolerance to activity/condition/position, To improve performance and independence with ADL's, To decrease level of supervision to perform tasks, To improve ability of physical actions for home/community/work/leisure, To improve gait and locomotor functions, To improve health of tissue, To decrease soft tissue restriction, To increase flexibility/ROM, To improve balance, To improve safety with gait, To improve health and function Manual Therapy Techniques to Include: Soft tissue mobilization For the Purpose of:: To increase ROM, To improve nutrient delivery to tissue, To decrease soft tissue restriction, To increase flexibility/ROM Thank you for the opportunity to evaluate your patient. For Medicare and Medicare HMO plans, please review the plan of care and approve it. It will need to be FAXED BACK to us at [phone] for Medicare purposes. For Medicare only, by signing this I certify the plan of care. Please let me know if there are questions or concerns regarding this plan of care. Physician Sign ature: Date:
--- NOTE | 2018-09-20 17:52 | HP.OTEVAL ---
Patient's Visit Information CESAR GEORGE is a 58 year old M, referred to Occupational Therapy by Lio Lombardi MD, with a diagnosis of Weakness of B ahnd; Neuropathy. Date of Evaluation: 09/20/18 Occupational Therapist: Marita Jacob - Subjective Subjective: Arrived and noted that he has been referred to OT due to wrist and hand pain. He is familiar to OT as previous seen. Cesar further explained that he had CABG in March 2018. He noted he has been completing cardiac rehab at [facility] and is still completing at this time. PMHx significant of DMII, CABG, and explained second CVA/TIA was found with most recent MRI in past year. 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 Decreased ability to complete full extension of R RF and PF due to claw hand deformity. Sensation severely decreased. - ROM Wrist: WFL MP: R 2-5th 0-89, 12-89, -7-0-90, -10-0-94; L 2-5th 0-76, 0-74, -30-86, -14-84 PIP: R 2-5th 36-104, 12-102, 52- 107, 54-92; L 2-5th 10-103, 25-105, 29-102, 35- DIP: R 2-5th 0-48, 5-63, 18-57, 30-53; L 2-5th 0-45, 0-57, 0-55, -8-51 ROM Comments: Completed active flexion only for PIP and DIP as he is unable to complete extension to neutral with PIP. Passively he able to get neutral with L hand on all PIP but R is more limited. - Strength Cobbler Mckay: R 67, L 52 Lateral Pinch: R 14, L 10 Tripod Pinch: R 8, L 8 Tip-to-Tip Pinch: R 10, L 6 Strength Comments: Fingers easily slip off pincer meter. No pain. Pt. reports increased difficulty completing C pinch testing on L hand due to sensory impairments. - Sensation Thumb: R 4.56 , L 4.56 Index: R 4.56 , L 4.56 Middle: R 4.56 , L 5.07 Ring: R 4.56 , L 6.10 Little: R 4.56 , L 6.65+ Sensation Comments: Red lined on all touch sensation on B hands. He exhibits significant touch sensory impairments. Due to partial claw hand like deformity it is believe there is to be ulnar nerve impairements somewhere along B UE. He noted no EKG/nerve conduction for a few years and nothing pertinent from past MRI besides additional CVA. - Attention Attention: Normal - In-Hand Manipulation Finger to Palm Translation: Moderate - Right, Severe - Left Palm to Finger Translation: Moderate - Right, Moderate - Left Comments: significant sensory impairments on B hands. - Quick DASH-Disab of Arm,Shoulder& Hand Quick DASH Score: 46.6650 - Hand/Wrist Evaluation Total Score of Pain & Functional Sections: 51 - Goals Goal:: Cesar to increase B configuration management advisor strength by 10-15 lbs to promote increase configuration management advisor and pinch strength needed to complete ADL/IADls by d/c. Goal:: Cesar to complete B pain management techniques to B hand to promote management of neuropathy symptoms with good safety awareness to decrease risk of injury by d/c. Goal:: Cesar to be mod I to complete ability to complete 9 hole pegboard test to promote increased finger dexterity and increased sensory awareness by d/c. Goal:: Cesar to complete sensory compensations with B hands to promote increased participation with tasks and decrease risk of further injury 100% of the time by d/c. Goal:: Cesar to be mod I to don gloves with B hands with sensory based compensations 4/5 tirals 80% of the time by end of 2 weeks. Goal:: Cesar to complete work related tasks with necessary compensations and a/e to promote increased ability to complete task and promote safety by d/c. Goal:: Alina to be mod I to complete button up shirt with use of button hook to promote increased ability to complete tasks 2/3 trials 75% of the time by d/c. - Rehabilitation General Assessment: Cesar arrived for OT evaluation on this date of 09/20/18. He is familiar with OT as previous seen by OT post elbow surgery. At that time OT had fabricated protective splint due to increased partial claw hand deformity on B hands. Further management of splints to be completed. Additionally, OT to address strengthening, compensations for severe sensation deficits, as well as management techniques of pain. OT to also complete education on a/e and compensations to manage FMC and pinch deficits for ADL/IADLs. 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 Rehabilitation Potential: Fair - Anticipated Interventions Anticipated Interventions: A/AAROM/PROM, Strengthening, Modalities, Orthoses, Joint Protection/Energy Conservation, Ergonomic Education, Fine Motor Coord/Ernesto, Neuro Reeducation, Visual/Perceptual Skills, Cognitive Skills, ADL Training, Education re assistive Equipment, Caregiver Training, Home Program - Visit Plan Frequency: 2x /Week Duration: 6 Weeks General Plan: OT to work on completing sensory training to promote compensations with neuropathy, FMC, increased configuration management advisor strengthening, compensations and adaptions to promote completing self-care/IADLs and increase ability to return to PLOF. OT will adjust and completed management of hands with use of protective splint to decrease risk of further deformity. TEXT: Thank you for the opportunity to evaluate your patient. For Medicare and Medicare HMO plans, please review the plan of care and approve it. It will need to be FAXED BACK to us at [phone] for Medicare purposes. Please let me know if there are questions or concerns regarding this plan of care. Physician Signature: Date:
--- NOTE | 2018-10-23 12:31 | HP.OTREVAL ---
Lio Lombardi MD, It has been my pleasure to treat CESAR GEORGE over the last 8 visits for Weakness of B ahnd; Neuropathy. Please see the progress note below for an update on the occupational therapy plan of care! Subjective: Arrived and noted he has looked but not order sensory related compensations of magnetic wrist band for holding screws etc. when working, button hook, and additional adapted products for work related tasks. Objective/Function: Completed OT reassessment on this date 10/23/18. Results are as follows: Wrist: - Flexion R 0-51, L 0-65. - Extension R 0-56, L 0-63. Hand: MCP 2nd-5th digits. -R 0-98, 11-94, -7-0-95, -12-0-104. -L 0-87, 0-84, -30-0-91, -23-0-97. PIP 2nd - 5th digits. R 28-107. 18-105, 48-105. 53-97. L 28-110, 30-106, 27- 100, 34-95. DIP 2nd - 5th digits. R 0-54, 5-74, 9-60, 27-52. L 0-50, 0-54, 0-46, 0-54. Strength (vision needed to promote completion of all tasks as sensation is decreased): Supervisor Blast Furnace R 67, L 61. Lateral pinch R 16. L 9. Tripod (finger consistently slips off pinch gauge) R 6, L 8. Sensation testing with monofilament test: Right 1st- 5th. - 4.17, 4.93, 4.93, 5.46, 6.45. L 1st-5th. - 5.18, 5.18, 6.65, 6.45, 6.65 +. He is wearing ulnar nerve protective splints. Slight improvement in strength of L hand and ROM of B hand at fingers. Significant muscle atrophy is noted throughout hands with increased atrophy noted at thenar eminence. He has made some progress, but progress is limited and after 1x follow up will be discharged. Plan Frequency: 1x/Week Duration: 1 Week Visits in this POC: 8-12 Plan: Will follow up 1x more time next week to go over additional adaptations for donning gloves. He is to continue all topics discussed. He continues to show similar signs in hands that he has over the last two years. Further follow up with neurologist maybe beneficial. Pt. did recently have MRI on knee due to pain. PT treating knee at this time. Goals - Goals Goal:: Cesar to increase B licensed practical nurse instructor strength by 10-15 lbs to promote increase licensed practical nurse instructor and pinch strength needed to complete ADL/IADls by d/c. Goal:: Cesar to complete B pain management techniques to B hand to promote management of neuropathy symptoms with good safety awareness to decrease risk of injury by d/c. Goal:: Cesar to be mod I to complete ability to complete 9 hole pegboard test to promote increased finger dexterity and increased sensory awareness by d/c. Goal:: Cesar to complete sensory compensations with B hands to promote increased participation with tasks and decrease risk of further injury 100% of the time by d/c. Goal:: Cesar to be mod I to don gloves with B hands with sensory based compensations 4/5 tirals 80% of the time by end of 2 weeks. Goal:: Cesar to complete work related tasks with necessary compensations and a/e to promote increased ability to complete task and promote safety by d/c. Goal:: [place] to be mod I to complete button up shirt with use of button hook to promote increased ability to complete tasks 2/3 trials 75% of the time by d/c. Anticipated Interventions Anticipated Interventions: A/AAROM/PROM, Strengthening, Modalities, Orthoses, Joint Protection/Energy Conservation, Ergonomic Education, Fine Motor Coord/Ernesto, Neuro Reeducation, Visual/Perceptual Skills, Cognitive Skills, ADL Training, Education re assistive Equipment, Caregiver Training, Home Program Please do not hesitate to contact me at [phone] by phone or if you have questions or concerns regarding this new plan of care! Sincerely, Marita Jacob
--- NOTE | 2018-11-01 12:18 | HP.OTDCSUM_ITS ---
HP - OT D/C Summary It has been my pleasure to treat CESAR GEORGE under orders from Lio Lombardi MD, for the diagnosis of Weakness of B hand; Neuropathy for a total of 9 visit(s). Please see the following information for a summary of their discharge status. - Overall Improvement % Improvement: 25 - hands have been ongoing for last 2-3 years - Objective Objective/Function: Reassessment completed on this date of 11/01/18. Results are as follows: ROM. Wrist. - Flexion: R 0-36, L 0-46. - Extension R 0-30, L 0- 32. Hand. MCP digits 2-5th. R 0-88, 12-96, 0-90, 16-92. L 10-83, 10-87, -14-0-85 , 0-92. PIP 2nd - 5th. R 33-106, 26-104, 56-106, 68-17. L 20-90, 31- 97, 23-103, 45-92. DIP 2nd - 5th. R 0-53, 5-63, 10-55, 29-51. L 9-23, 0-50, 0-40, 13-53. 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 Lateral: 15, L 11 lbs. Three Jaw ( increase slipping of MF): R 9, L 8 lbs. Tip Pinch: R 8, L 6 lbs. Sensory testing from previous testing still measured at sensory deficits with being red lined on certain fingers. 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 Goal:: Cesar to complete B pain management techniques to B hand to promote management of neuropathy symptoms with good safety awareness to decrease risk of injury by d/c. Goal:: Cesar to be mod I to complete ability to complete 9 hole pegboard test to promote increased finger dexterity and increased sensory awareness by d/c. Goal:: Cesar to complete sensory compensations with B hands to promote increased participation with tasks and decrease risk of further injury 100% of the time by d/c. Goal:: Cesar to be mod I to don gloves with B hands with sensory based compensations 4/5 tirals 80% of the time by end of 2 weeks. Goal:: Cesar to complete work related tasks with necessary compensations and a/e to promote increased ability to complete task and promote safety by d/c. Goal:: Alina to be mod I to complete button up shirt with use of button hook to promote increased ability to complete tasks 2/3 trials 75% of the time by d/c. - Plan Plan: Cesar will be discharged at this time due to limited progress. Skilled occupational therapy completed to promote compensations due to sensory related deficits. Handouts of all topics discussed have been provided. Additionally, OT has made adaptive piece of equipment to help don gloves and he is able to complete donning gloves mod I at this time. He is now wearing ulna nerve related splints OT previously made to help decreased any further loss of ROM. He is to call with questions/concerns. - D/C Information If there are questions or concerns regarding this patient's occupational therapy, please fell free to call me at [phone]. Thank you for the referral of this patient. Sincerely, Marita Jacob
--- NOTE | 2018-12-01 09:24 | HP.PTDCSUM ---
HP - PT D/C Summary It has been my pleasure to treat RICK GEORGE under orders from Lio Lombardi MD, for the diagnosis of imbalance from neuropathy for a total of 17 visit(s). Discharge Date: 12/01/18 Please see the following information for a summary of their discharge status. - Subjective Subjective: Pt feels that he is stronger. He reports that he has not fallen down in a long time and his balance is better. - Pain L leg Pain Intensity (Out of 10): 2 Ribs Pain Intensity (Out of 10): 2 L hand Pain Intensity (Out of 10): 4 L knee pain Pain Intensity (Out of 10): 2 L ankle pain Pain Intensity (Out of 10): 2 - Overall Improvement % Improvement: 90 - Objective Objective/Function: Gait: walks with decrease stance time on the L, slightly wider MOHINDER...good heel to toe pattern. Stairs: up and down recip with 1 hand rail and he needs to look at his feet to ascend and descend the stairs and coming down the stiars is much slower and needs more control to do so. Tight HS below and tight gastroc B. LE MMT: R hip flex 5/5 and L 4+/5, R knee ext 4+/5 and L 4/5, R knee flex 4+/5 and L 4/5, R hip abd 4+/5 and L hip abd 4/5, B hip ext 4/5. FGA 10 - Goals Goal 1:: I HEP Goal Progress: Goal Met Goal 2:: Increase FGA by 5 points to 13 to decrease fall risk. Goal Progress: Progressing Goal 3:: Increase LE strength by 1/2 muscle grade to decrease fall risk ( hip flex L 4-/5 and R 4/5, knee flex, R 4-/5 and L 3+/5, R knee ext 4/5 and L 4-/5, R hip abd 4/5 and L 4-/5, B hip ext R 4/5 and L 3+/5, R knee flex 4/5 and L 3+/5 Goal Progress: Goal Met Goal 4:: Be able to walk with more of an equal WB gait pattern Goal Progress: Progressing - Plan Plan: DC PT to HEP including step ups, side step ups, Gastroc and HS stretching with strap, Bridgeing with hip abd, clam shells and heel and toe raises - D/C Information Discharge Comments: DC PT to HEP (oictures given) If there are questions or concerns regarding this patient's physical therapy, please feel free to call me at [phone]. Thank you for the referral of this patient. Sincerely, Martha Flores, MPT
== END 2018-12-01 19:00 | disposition home or self-care (01) ==
LOC: PT 08:30
PROVIDERS: Family Provider Student in an Organized Health Care Education/Training Program; PCP Student in an Organized Health Care Education/Training Program; Referring Provider Psychiatry & Neurology Neurology; Visit Provider Psychiatry & Neurology Neurology
DX: I25.10 Atherosclerotic heart disease of native coronary artery without angina pectoris (principal); R53.1 Weakness; R26.81 Unsteadiness on feet; I21.4 Non-ST elevation (NSTEMI) myocardial infarction; Z95.1 Presence of aortocoronary bypass graft; E11.8 Type 2 diabetes mellitus with unspecified complications; I73.89 Other specified peripheral vascular diseases; I11.0 Hypertensive heart disease with heart failure; I50.9 Heart failure, unspecified; Z71.3 Dietary counseling and surveillance
CPT/HCPCS: 93798; 97035; 97110; 97162; 97166; 97168; 97530

== ENCOUNTER → 2019-03-19 11:57 | Outpatient (CLI) | payer MEDICAID, SELFPAY ==
[2019-03-19 11:00] VITALS: BMI 32.5
[2019-03-19 12:59] LABS: Anion Gap 3 (5-15); BUN 27 mg/dL (7-18); Chloride 103 mmol/L (98-107); Creatinine, Serum 0.84 mg/dL (0.70-1.30); EST Glomerular Filtration Rate 99 mL/min (>60); Est Glom Filt Rate - Afr Amer 120 mL/min (>60); Glucose 191 mg/dL (74-106); Potassium 4.7 mmol/L (3.5-5.1); Sodium Level 138 mmol/L (136-145)
== END ==
PROVIDERS: Family Provider Student in an Organized Health Care Education/Training Program; PCP Student in an Organized Health Care Education/Training Program; Referring Provider Nurse Practitioner Family; Visit Provider Nurse Practitioner Family
DX: I11.0 Hypertensive heart disease with heart failure (principal); I50.9 Heart failure, unspecified; R06.09 Other forms of dyspnea; Z95.1 Presence of aortocoronary bypass graft
CPT/HCPCS: 36415; 80048

== ENCOUNTER → 2019-04-11 08:17 | Outpatient (CLI) | payer MEDICAID, SELFPAY ==
[2018-10-18 09:50] VITALS: BMI 30.4
[2019-03-19 11:00] VITALS: BMI 32.5
--- NOTE | 2019-04-11 09:06 | ECHOCS_ITS ---
Reason For Study: SOB Procedure This was a 2D Doppler, Color Flow transthoracic echocardiogram. The study was technically difficult. Contrast injection was performed. Exam performed in department. Left Ventricle Normal LV size. Left ventricular systolic function is normal. The estimated ejection fraction is 55 %. Diastolic function is indeterminate. No regional wall motion abnormalities noted. Right Ventricle Normal RV size. Normal systolic function. Atria The left atrium is mildly enlarged. Normal right atrium. No doppler evidence for ASD. Mitral Valve There is moderate mitral annular calcification. Extension of the mitral annular calcification onto the base of the posterior mitral valve leaflet. Mild focal mitral valve calcification of the anterior leaflet. Trivial mitral valve insufficiency. Tricuspid Valve Normal tricuspid valve. Trivial tricuspid valve insufficiency. Unable to estimate RV systolic pressure/pulmonary artery pressure due to technically difficult study. Aortic Valve Trisinus/trileaflet aortic valve. Mild focal aortic valve calcification. Pulmonic Valve The pulmonic valve is not well visualized. Trivial pulmonic valve insufficiency. Great Vessels Normal sized aortic root. Pericardium/Pleural No pericardial effusion. Medication 22 gauge I.V. with prn adaptor inserted into left arm. Diluted definity 2.5ml given slow IV push to enhance endocardial definition. MMode/2D Measurements & Calculations LVIDd: 4.5 cm IVSd: 0.85 cm Ao root diam: 3.2 cm LVIDs: 3.3 cm LVPWd: 1.1 cm RVDd: 3.7 cm FS: 27.1 % LAV(MOD-bp): 52.5 ml LA A4 area: 20.9 cm2 LA dimension(2D): 4.3 cm LAV(MOD-bp) Indexed: 25.1 ml/m2 LAV(MOD-sp2): 49.0 ml LAV(MOD-sp4): 56.3 ml RA A4 area: 12.5 cm2 Doppler Measurements & Calculations MV E max bucky: 120.0 cm/sec Lat Peak E' Bucky: 8.7 cm/sec Med Peak E' Bucky: 4.7 cm/sec MV A max bucky: 64.2 cm/sec E/E' lat: 13.8 E/E' med: 25.4 MV E/A: 1.9 Ao V2 max: 149.1 cm/sec LV V1 max: 103.9 cm/sec PA V2 max: 105.8 cm/sec Ao max P.9 mmHg LV V1 max P.3 mmHg Interpretation Summary The study was technically difficult. Contrast injection was performed. Left ventricular systolic function is normal. The estimated ejection fraction is 55 %. The left atrium is mildly enlarged. There is moderate mitral annular calcification. Extension of the mitral annular calcification onto the base of the posterior mitral valve leaflet. Mild focal mitral valve calcification of the anterior leaflet. Trivial mitral valve insufficiency. Trivial tricuspid valve insufficiency. Mild focal aortic valve calcification. Trivial pulmonic valve insufficiency. Unable to estimate RV systolic pressure/pulmonary artery pressure due to technically difficult study. Diastolic function is indeterminate. Ordering Physician: Tommie Jean/Mat Ring Referring Physician: Avery Escalante Performed By: Penelope Stein RDCS
--- NOTE | 2019-04-11 10:14 | PFTCOMP ---
COMPLETE PULMONARY FUNCTION TEST INTERPRETATION Brief HPI: Patient is a 59 year old male, currently under the care of Tommie Jean, who presents to [facility] for complete pulmonary function tests secondary to diagnosis of dyspnea. Respiratory therapist reports good effort and reproducible results. Interpretation: Forced expiration spirometry shows no large airways obstructive ventilatory defect with an FEV1 of 77% predicted. There is a significant bronchodilator response in FVC by strict ATS criteria. Spirograms are of good quality and plateau normally. The respiratory flow volume loop shows a normal pattern. Lung volumes by body plethysmography show a decreased total lung capacity at 5.39 L, 81% predicted. All other lung volumes are within normal limits. Diffusion capacity by carbon monoxide is normal at 81% predicted. The airway resistance is elevated. No previous pulmonary function tests were available for review. Impression: Mild restrictive ventilatory defect with preserved diffusion capacity, and a pattern consistent with musculoskeletal restriction.
== END ==
PROVIDERS: Family Provider Student in an Organized Health Care Education/Training Program; PCP Student in an Organized Health Care Education/Training Program; Referring Provider Nurse Practitioner Family; Visit Provider Nurse Practitioner Family
DX: R06.09 Other forms of dyspnea (principal); R06.02 Shortness of breath; I10 Essential (primary) hypertension; Z95.1 Presence of aortocoronary bypass graft
CPT/HCPCS: 93306; 94060; 94726; 94729; Q9957; A4216; C8929

== ENCOUNTER → 2019-08-13 | Outpatient (CLI) | payer MEDICAID, SELFPAY ==
[2019-05-01 13:08] VITALS: BMI 31.5
[2019-08-13 13:33] LABS: Erythrocyte Sedimentation Rate 16 mm/hr (0-20)
[2019-08-13 13:35] LABS: Absolute Neutrophil Count 5.1 X10^3/uL (2.0-7.7); Basophil# 0.06 X10^3/uL; Basophil% 0.8 % (0-1); Eosinophils% 2.6 % (0-5); Hematocrit 47.2 % (40-54); Hemoglobin 15.3 g/dL (13.0-16.5); Lymphocyte % 20.8 % (19-41); Mean Corp Hgb Conc 32.4 g/dL (32-36); Mean Corpuscular Hgb 32.6 pg (27.0-32.0); Mean Corpuscular Volume 100.6 fL (80-94); Mean Platelet Vol. 10.6 fl (6.2-12.0); Monocyte# 0.66 X10^3/uL; Monocyte% 8.6 % (0-10); NRBC Flagged by Analyzer 0 % (0-5); Neutrophil # 5.11 X10^3/uL (2.7-7.7); Neutrophil % 66.3 % (47-70); Platelet Count 255 K/mm3 (150-450); RBC Distribution Width CV 12.6 % (11.6-14.6); RBC Distribution Width SD 46.5 fl (35.1-43.9); Red Blood Count 4.69 M/mm3 (4.6-6.2); White Blood Count 7.7 K/mm3 (4.4-11.0)
[2019-08-13 14:13] LABS: ALB/GLOB Ratio 0.9 RATIO (0.9-2.4); AST(SGOT) 51 U/L (15-37); Alanine Aminotransfer ALT/SGPT 53 U/L (16-61); Albumin, Serum 3.9 g/dL (3.2-5.0); Alkaline Phosphatase 94 U/L (45-117); Anion Gap 5 (5-15); BUN 16 mg/dL (7-18); BUN/Creat Ratio 15.4 RATIO (10-20); Chloride 103 mmol/L (98-107); Creatinine, Serum 1.04 mg/dL (0.70-1.30); EST Glomerular Filtration Rate 78 mL/min (>60); Est Glom Filt Rate - Afr Amer 94 mL/min (>60); Globulin 4.3 g/dL (2.2-4.2); Glucose 122 mg/dL (74-106); Protein, Total 8.2 g/dL (6.4-8.2); Sodium Level 138 mmol/L (136-145)
[2019-08-13 19:41] LABS: M R Staph aureus DNA By PCR Negative (Negative); Staph aureus DNA By PCR POSITIVE (Negative)
[2019-08-13 19:42] LABS: Probe Check PASS
== END | disposition home or self-care (01) ==
LOC: LAB 12:21
PROVIDERS: Family Provider Student in an Organized Health Care Education/Training Program; PCP Student in an Organized Health Care Education/Training Program; Referring Provider Podiatrist; Visit Provider Podiatrist
DX: L97.522 Non-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ulcer of other part of left foot with fat layer exposed (principal)
CPT/HCPCS: 36415; 80053; 85025; 85652; 87070; 87075; 87077; 87186; 87205; 87640

== ENCOUNTER 2019-08-23 12:14 | Day surgery (SDC) | payer MEDICAID, SELFPAY ==
[2019-08-13 13:12] VITALS: BMI 31.7
[2019-08-23] VITALS (14 sets, daily range): BP systolic 121–141; BP diastolic 62–90; PULSE 80–91; RESP 16; TEMP 36.1–36.7; O2SAT 92–100; BMI 31.8
--- NOTE | 2019-08-23 10:40 | HP.PCM_ITS ---
History and Physical Date of Admission: 08/23/19 Cesar Espinoza Jr. 1960 ? ? REFERRING PHYSICIAN: Avery Escalante, DO ? CHIEF COMPLAINT: Consult (Consult Abd pain ) ? HPI: The patient is a pleasant 59 year old male who has complaint of left sided abdominal pain and swelling. He states that it is worse after eating large meal. He notes occasional gastroesophageal reflux symptoms. Denies blood in stools Denies weight loss. Denies nausea/emesis. Denies weight loss. ? CT scan 08/16/19 IMPRESSION: Fluid-filled appendix with dilation of the proximal portion, suggestive of mucocele of the appendix. ?Underlying malignancy would be difficult to Exclude. Enlarged bilateral inguinal lymph nodes. ? ? PAST MEDICAL HISTORY Diagnosis Date ? Cataract ? ? b/l, eye exam 05/29/13 ? CTS (carpal tunnel syndrome) 10/2013 ? b/l, chronic, Dr. Mazin Hinojosa EMG ? Diabetic retinopathy of both eyes ([facility]) ? ? eye exam 05/29/13 ? DM (diabetes mellitus) ([facility]) ? ? Diagnosed in 2004 ? Mild atherosclerosis of both carotid arteries 05/2016 ? ICA b/l 20-39% ? Polyneuropathy 10/2013 ? axon loss, Dr. Mazin Hinojosa Neuro, likely from DM and Vitamin B12 defic ? Stroke ([facility]) 10/01/13 ? Ulnar neuropathy 10/2013 ? b/l, chronic, Dr. Mazin Hinojosa EMG ? Vitamin D deficiency 11/2013 ? PAST SURGICAL HISTORY Procedure Laterality Date ? DISCISSION,2ND CATARACT,LASER ? 06/07/2013 ? Yag Capsulotomy-Right eye ? LASER, SECONDARY CATARACT ? 2007 ? OU ? PAST SURGICAL HISTORY OF ? 02/2013 ? Amputation Right Gt toe ? ? Current Outpatient Medications: Magnesium Oxide 250 mg magnesium tab Take 250 mg by mouth once daily. pregabalin (LYRICA) 300 mg capsule Take 300 mg by mouth twice daily. Vardenafil HCl (LEVITRA) 20 mg tablet Take 1 tablet by mouth as needed. amLODIPine (NORVASC) 10 mg tablet Take 1 tablet by mouth once daily. aspirin 81 mg chewable tablet TAKE 2 TABLETS BY MOUTH OR FEEDING TUBE ONCE DAILY celecoxib (CELEBREX) 200 mg capsule Take 1 capsule by mouth once daily. desonide (TRIDESILON) 0.05 % cream APPLY TO AFFECTED AREA ONCE DAILY NEEDED FOR FACE RASH becaplermin (REGRANEX) 0.01 % gel Apply 1 application to affected area once daily. ammonium lactate (LAC-HYDRIN) 12 % cream Apply 1 application to affected area as needed. baclofen (LIORESAL) 20 mg tablet Take 30 mg by mouth three times daily as needed. ketoconazole (NIZORAL) 2 % cream APPLY TO AFFECTED AREA ON FACE ONCE DAILY insulin lispro (HUMALOG KWIKPEN INSULIN) 100 unit/mL inpn INJECT 12 TO 20 UNITS SUBCUTANEOUSLY WITH MEALS DIRECTED [id number]-algal oil (FOLTANX RF) 3 mg-35 mg-2 mg -90.314 mg cap Take 1 capsule by mouth once daily. blood sugar diagnostic (FREESTYLE LITE STRIPS) test strip Check blood glucose four times daily. Dx: E11.42, Insulin dependent cetirizine (ZYRTEC) 10 mg tablet TAKE 1 TABLET BY MOUTH ONCE DAILY simvastatin (ZOCOR) 10 mg tablet Take 1 tablet by mouth daily at bedtime. lisinopril (ZESTRIL, PRINIVIL) 5 mg tablet Take 5 mg by mouth once daily. albuterol HFA (PROAIR HFA) 90 mcg/actuation inhaler Inhale 2 Puffs as instructed every 4 hours as needed. famotidine (PEPCID) 20 mg tablet Take 1 tablet by mouth at bedtime as needed (for acid reflux). Cholecalciferol, Vitamin D3, 5,000 unit cap Take 1 capsule by mouth once daily. gabapentin (NEURONTIN) 300 mg capsule TAKE 3 CAPSULES BY MOUTH EVERY 8 HOURS nortriptyline (PAMELOR) 50 mg capsule TAKE ONE CAPSULE BY MOUTH ONCE DAILY AT BEDTIME furosemide (LASIX) 20 mg tablet Take 1 tablet by mouth twice daily. As needed for edema Magnesium 250 mg tab Take 1 tablet by mouth once daily. NIFEdipine ER (PROCARDIA XL) 30 mg 24 hr tablet Take 1 tablet by mouth once daily. metoprolol tartrate, short acting, (LOPRESSOR) 25 mg tablet Take 0.5 tablets by mouth every 12 hours. insulin glargine (BASAGLAR KWIKPEN U-100 INSULIN) 100 unit/mL (3 mL) inpn INJECT 20 UNITS SUBCUTANEOUSLY AT BEDTIME diflorasone 0.05 % cream APPLY CREAM TO AFFECTED AREA TWICE DAILY NEEDED FOR RASH biotin 1 mg cap TAKE ONE TABLET BY MOUTH ONCE DAILY insulin needles, DISPOSABLE, 31 gauge x 5/16 ndle USE TO GIVE INSULIN INJECTIONS 4 TIMES DAILY COMPOUNDED PRESCRIPTION Referral: wound clinic, [facility] FREESTYLE LANCETS 28 gauge misc USE DIRECTED 3 TO 4 TIMES DAILY TO TEST BLOOD GLUCOSE Blood-Glucose Meter (FREESTYLE LITE METER) monitoring kit Freestyle LITE Meter Kit - Dx: Type 2 DM - Controlled E11.9 ? ? ALLERGIES: Crestor [Rosuvastatin]; Lipitor [Atorvastatin Calcium]; Metformin ? PERSONAL HISTORY: Social History Socioeconomic History Marital status: Domestic Partner Spouse name: Not on file Number of children: 3 Years of education: Not on file Highest education level: Not asked Occupational History Occupation: [employer] Occupation: [employer] Social Needs Financial resource strain: Not on file Food insecurity: Worry: Never true Inability: Never true Transportation needs: Medical: No Non-medical: No Tobacco Use Smoking status: Never Smoker Smokeless tobacco: Former User Types: Chew Substance and Sexual Activity Alcohol use: No Drug use: No Sexual activity: Yes Partners: Female Comment: Not asked Lifestyle Physical activity: Days per week: Not on file Minutes per session: Not on file Stress: Not on file Relationships Social connections: Talks on phone: Three times a week Gets together: Not on file Attends roman catholic service: Not on file Active member of club or organization: Not on file Attends meetings of clubs or organizations: Not on file Relationship status: Intimate partner violence: Fear of current or ex partner: Not on file Emotionally abused: Not on file Physically abused: Not on file Forced sexual activity: Not on file Other Topics Concerns: Service: Not Asked Blood Transfusions: Not Asked Caffeine Concern: Yes Occupational Exposure: Not Asked Hobby Hazards: Not Asked Sleep Concern: Not Asked Stress Concern: Not Asked Weight Concern: Not Asked Special Diet: Yes watch carbs Back Care: Not Asked Exercise: Yes Bike Helmet: Not Asked Seat Belt: Not Asked Self-Exams: Not Asked Social History Narrative Not on file ? FAMILY HISTORY Problem Relation Age of Onset ? Diabetes Mother ? ? Heart Father ? ? Heart Paternal Grandmother ? ? Heart Paternal Grandfather ? ? ? REVIEW OF SYSTEMS: General - denies fevers, denies anorexia, denies weight loss Cardiovascular - has Raynaud's, denies chest pain, denies chest palpitations, denies history of [place] Pulmonary - denies shortness of breath, denies coughing up blood Gastrointestinal - see HPI Neurological - has peripheral neuropathy with muscle wasting, had CVA in the past, denies chronic headache, denies seizures Genitourinary - denies burning with urination, denies blood in urine Hematological - denies spontaneous/prolonged bleeding Skin - denies nonhealing skin wounds Musculoskeletal - left knee pain/swelling, has chronic back/hip/knee pain Endocrine - has diabetes, no thyroid problems Psychological ? denies hallucinations ? PHYSICAL EXAMINATION: General: The patient is 59 year old male, well nourished, well hydrated in no acute distress. The patient is oriented to time, place, and person. VITALS: Blood pressure 118/62, pulse (!) 57, temperature 36.6 ?C (97.9 ?F), height 177.8 cm (5' 10), weight 102.4 kg (225 lb 12.8 oz), SpO2 94 %. Body mass index is 32.4 kg/m?. Head ? Normocephalic. EOM intact with sclera clear and no icterus noted. Mouth with mucus membranes moist. Neck - supple with no jugular venous distention noted. Trachea is midline. No masses noted. Lungs ? clear to auscultation. Normal breath sounds. No rales/rhonchi/wheezing noted. No labored breathing noted, such as retractions. No cough heard. Heart ? normal S1 and S2 auscultated. No rubs/clicks/murmurs noted. Regular rate. Abdomen ? soft and benign and protuberant. Normal bowel sounds Difficult to determine if any masses or organomegaly due to body habitus. Extremities ? no calf tenderness noted. No pitting edema noted. Claw like deformation of hands with muscle wasting noted Skin ? normal skin integrity. Lymph ? no cervical adenopathy detected, no supraclavicular adenopathy detected, no axillary adenopathy detected Neurological ? gait normal, no focal deficits noted except for finger weakness. Psych ? calm and appropriate RADIOLOGIC STUDIES: As Noted ? ? IMPRESSION: abnormal CT scan findings of abnormal appendix ? PLAN: I have discussed the above with the patient. I have offered laparoscopic appendectomy for diagnosis. I have explained the procedure to the patient. I have counseled the patient as to the risks of the procedure, including but not limited to: infection, bleeding, injury to any blood vessels/nerves, scar tissue, injury to any intrabdominal organs, injury to bowel/bladder, intraabdominal abscess/bleeding, hernias at incisional sites, wound infections, complications of anesthesia, etc. ? the patient understands. The patient wishes to proceed. ? I have answered all questions to the patient?s satisfaction and the patient has no further questions. . Diagnoses: (R10.9) Left sided abdominal pain (primary encounter diagnosis) (R93.3) Abnormal CT scan, gastrointestinal tract Return to Clinic: The patient is instructed to follow-up with me after the procedure. ? ? Liv Quezada MD
[2019-08-23 12:54] LABS: Hemoglobin A1c 6.1 % (4.2-6.3)
[2019-08-23] MEDS: Dextrose 5%-Lactated Ringers 1,000 ML 100 ML IV (13:08)
[2019-08-23] MEDS: Dextrose 50%-Water 25 GM/50 ML DISP.SYRIN IV (13:09)
[2019-08-23 13:26] LABS: Bedside Glucose 230 mg/dL (70-110)
[2019-08-23 13:26] LABS: Bedside Glucose 48 mg/dL (70-110)
--- NOTE | 2019-08-23 13:35 | APP_PTH ---
PATIENT: RICK GEORGE Jr. [place] [facility] [id number] AGE/SX: 59/M ROOM: RE08/23/[address]: Dr. Liv Quezada MD : 1960 BED: DIS: 08/23/2019 SPEC #: [id number] RECD: 08/23/19 15:48 STATUS: SHELIA REDel #: [id number] MARKUS: 08/23/19 13:[address]: Liv Quezada DEPT: SURGICAL PATHOLOGY RECD BY: Quirino Santana ENTERED: 08/24/19 09:05 SP TYPE: APPENDIX OTHR DR: Dr. Avery Escalante DO Tissues: Appendix, NOS Procedures: Surgery Specimen Level V HEADER OPERATION: Laparoscopic appendectomy PRE-OP DIAGNOSIS: Abnormal CT scan, left-sided abdominal pain TISSUE SUBMITTED: Appendix MICROSCOPIC DIAGNOSIS Appendix, appendectomy: Low grade appendiceal mucinous neoplasm (LAMN). See comment. AM:sandro 11/11/19 COMMENT Sections show flat proliferation of mucinous epithelial cells confined to the lumen. There is no evidence of nuclear atypia and no definitive invasion is seen. Extra appendiceal mucin extension is not identified. The proximal margin of excision does not contain mucinous epithelium. The involved mucosa measures approximately 2.6cms in greatest length. Low grade appendiceal mucinous neoplasm (LAMN) is a low grade noninvasive epithelial proliferation in the absence of infiltrative growth pattern. Clinical correlation is necessary. Case has been reviewed in consultation with Dr. Nguyen who concurs with the above diagnosis. IDC:SJ MICROSCOPIC DESCRIPTION Slides are reviewed. GROSS DESCRIPTION Received is one container labeled with the patient's name and designated appendix. The specimen consists of a previously opened appendix measuring 7 cm in length and 2.2 cm in diameter. The appendix has been opened from approximately 1 cm from the proximal margin of resection and all the way down to the tip of the appendix.. Small amounts of yellow fatty tissue are adherent to the serosal surface. A large amount of mucin is seen adherent to the mucosa. The process occupies about 35% of the length of the appendix and measures the involved mucosa approximately 2.6cms in length. The specimen container also contains multiple detached pieces of mucinous material. The proximal mucosal surgical margin appears unremarkable. The visible serosal surface is inked in black ink. The specimen is serially sectioned and totally submitted in eight cassettes as follows: 1 - proximal shave margin of excision, 2-8 - remainder of appendix and adjacent soft tissue (cassette 8 contains the tip of the appendix). / AM:sandro 08/24/19 TC:1 CPT: 36651
--- NOTE | 2019-08-23 14:15 | PCM.DC.APPY ---
Discharge Diet: - - Please stay on a liquid diet through tomorrow, can start slowly adding solid foods on Tuesday, thank you Discharge Activity: Return to Normal Activity, May not drive while taking narcotic pain medications. Lifting Restrictions: no lifting greater than 20 pounds for two weeks Call your doctor if your incision/area has: Continuous Slow Oozing, Foul Smelling Discharge Call your doctor if you observe: Fever of 101 or Higher Additional Dressing/Incision Instructions:: Leave dressings in place. May get wet in shower. Do not soak - no tub baths/swimming Medications to take at Discharge Ammonium Lactate [Amlactin] 57 gm TP PRN PRN 10/04/17 Celecoxib [Celebrex] 200 mg PO DAILY 10/04/17 Cholecalciferol (Vitamin D3) [Vitamin D3] 5,000 unit PO DAILY 10/04/17 Levomefolate/B6/B12/Algal Oil [Metanx Capsule] 1 ea PO DAILY 10/04/17 Nortriptyline HCl 50 mg PO QHS 10/04/17 Biotin 1 mg PO DAILY 04/01/18 Desonide 0.05% [Desowen 0.05% Cream] 1 applic TOPICAL BID 04/01/18 Diflorasone Diacetate [Psorcon] 1 applicatio TP BID PRN 04/01/18 Insulin Glargine,Hum.rec.anlog [Basaglar Kwikpen U-100] 20 unit SQ QHS 04/01/18 Insulin Lispro [Humalog KwikPen] See Protocol SQ TIDCM 04/01/18 Ketoconazole [Nizoral] 1 applic TOPICAL DAILY PRN 04/01/18 Magnesium 250 mg PO DAILY 04/01/18 Aspirin [Aspir-Low] 81 mg PO DAILY MDD . 05/24/18 metoprolol tartrate 25 mg tablet 12.5 mg PO BID tab MDD 1.5 tabs 07/19/18 lisinopril 5 mg tablet 5 mg PO QDAY #30 tab 03/19/19 albuterol sulfate HFA 90 mcg/actuation aerosol inhaler 2 puff INHALATION Q4H PRN g 08/13/19 amlodipine 10 mg tablet 10 mg PO DAILY 08/13/19 baclofen 20 mg tablet 20 mg PO TID 08/13/19 becaplermin 0.01 % topical gel 1 applic TOPICAL DAILY 08/13/19 cetirizine 10 mg tablet 10 mg PO DAILY 08/13/19 furosemide 20 mg tablet 40 mg PO BID PRN tab 08/13/19 gabapentin 300 mg capsule 900 mg PO TID cap 08/13/19 nifedipine ER 30 mg tablet,extended release 30 mg PO DAILY 08/13/19 simvastatin 10 mg tablet 10 mg PO QHS 08/13/19 vardenafil 20 mg tablet 20 mg PO DAILY PRN 08/13/19 Amoxicillin/Potassium Clav [Amox-Clav 875-125 mg Tablet] 1 ea PO BID 08/22/19 Ciprofloxacin [Cipro] 500 mg PO BID 08/22/19 Cyanocobalamin [Vitamin B12] 1,000 mcg IM Q30D 08/22/19 Hydrocodone Bitart/Apap 5-325 [[place] 5MG-325MG] 1 tablet PO Q6H PRN PRN 5 Days #20 tablet 08/23/19 Allergies/Adverse Reactions: Allergies atorvastatin Adverse Reaction (Verified 08/23/19 12:36) Unknown metformin Adverse Reaction (Verified 08/23/19 12:36) Diarrhea The following prescriptions were given: Hydrocodone Bitart/Apap 5-325 [[place] 5MG-325MG] 1 tablet PO Q6H PRN PRN 5 Days #20 tablet PRN Reason: Pain Score 6-10/10 Transmission Status: Sent to [id number] Orders to be completed after discharge: Hemoglobin A1c Time Frame: 08/22/19, Facility: [facility], Location: Laboratory Primary Care Physician: Avery Escalante DO [Primary Care Provider] - Test Results: Test results from this visit will be discussed in further detail at your follow-up appointment, if applicable. Please Follow Up With: Liv Quezada MD - call When: to be see in 1-2 weeks, please call for date and time, thank you
[2019-08-23] MEDS: Bupiv/Epi 0.25% 30 ML Vial (15:26)
--- NOTE | 2019-08-23 15:44 | PCM.OPRPT ---
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 Appropriate time out protocol was followed. He was then placed in the supine position on the operating table. The patient was then placed under general anesthesia. The patient?s abdomen was then prepped with a sterile surgical skin preparation and sterile surgical drapes were placed. The infraumbilical skin fold was grasped with penetrating clamps and the skin and subcutaneous tissues were infiltrated with 0.25% marcaine with epinephrine. A skin incision was then made. A Veress needle was then inserted into the intraabdominal cavity and checked to be in the proper position with a normal saline drop test. A CO2 pneumoperitoneum was then created. Once this was achieved, the Veress needle was removed and a 5 mm trocar was placed in its stead. A 5 mm laparoscope was then inserted into the trocar. Careful examination of the intraabdominal contents was then done. There was no evidence of injury to any internal organs from placement of the Veress needle or the trocar. Under direct visualization, a 12mm suprapubic trocar and a 5mm left lower quadrant trocar was then placed into the intraabdominal cavity. The skin and subcutaneous tissues at these sites were first infiltrated with 0.25% marcaine with epinephrine. Attention was then directed to the right lower quadrant. The appendix was visualized. It was grossly dilated but there were no inflammatory changes. The mesentery of the appendix was taken down by cauterizing the tissue from the free edge to the base of the appendix with the Harmonic scalpel. The mass was noted to be extending partially into the cecum, approximately 1/4 to 1/3 of the volume of the cecum. The cecum was detached from the right side wall using the Harmonic scalpel and dissecting along the line of Toldt. Once the cecum was entirely freed, then a linear gastrointestinal stapling device was brought in via one of the ports and fired across the cecum just distal to the mass. Another load of the stapling device was required to completely transect the cecum at this point. The part of the cecum transected and attached to the appendix was then placed in an Endobag and brought out via the suprapubic port site. It was opened and noted to have a mucinous cyst. It was placed in formalin and forward to pathology for analysis. The stapled line of the cecum was carefully examined. No active bleeding was noted. No bile leakage or fecal leakage was noted. Surgicel was applied to the staple line. The surrounding tissues were also examined and there was no evidence of any active bleeding or fecal/bile leakage. There was no evidence of mesenteric adenopathy of the right colon. The intraabdominal cavity was examined and there was no evidence of further inflammation or tissue abnormality. There was no evidence of any peritoneal fluid. The CO2 pneumoperitoneum was released and all trocars were removed intact. The suprapubic fascia was reapproximated with a figure-of-8 vicryl sutures. All skin incisions were reapproximated with monocryl suture. Cavilon and steristrips were applied to reinforce skin closure and proper sterile dressings were placed. The patient was then extubated and brought to the Recovery Room in stable condition. - Complications none noted - Admit VTE Documentation VTE Present on Admission: Yes VTE Mechan Device Prophylaxis: SCD's
[2019-08-23] MEDS: Lactated Ringers 1,000 ML 75 ML IV (15:45)
[2019-08-23 16:06] LABS: Bedside Glucose 226 mg/dL (70-110)
[2019-08-23] MEDS: HYDROcodone Bitartrate/Apap 5/325 Tablet PO (17:07)
== END 2019-08-23 18:16 | disposition home or self-care (01) ==
LOC: SDC 12:15 → AC 12:16
PROVIDERS: Anesthesiology; Family Provider Student in an Organized Health Care Education/Training Program; PCP Student in an Organized Health Care Education/Training Program; Referring Provider Surgery; Visit Provider Surgery
PROC: 0DTJ4ZZ Resection of Appendix, Percutaneous Endoscopic Approach (ICD-10-PCS; CPT 44970; principal; 2019-08-23 13:15)
DX: D12.1 Benign neoplasm of appendix (principal); E11.319 Type 2 diabetes mellitus with unspecified diabetic retinopathy without macular edema; E11.42 Type 2 diabetes mellitus with diabetic polyneuropathy; I10 Essential (primary) hypertension; E55.9 Vitamin D deficiency, unspecified; K21.9 Gastro-esophageal reflux disease without esophagitis; Z79.82 Long term (current) use of aspirin; Z79.899 Other long term (current) drug therapy; Z79.4 Long term (current) use of insulin; I25.2 Old myocardial infarction; Z86.73 Personal history of transient ischemic attack (TIA), and cerebral infarction without residual deficits
CPT/HCPCS: 00840; 44204; 44970; 36415; 82962; 83036; 88304; 88307; J7050; J7120; J2405

== ENCOUNTER → 2019-08-27 09:57 | Outpatient (CLI) | payer MEDICAID, SELFPAY ==
[2019-08-23 12:38] VITALS: BMI 31.8
[2019-08-27 11:49] LABS: Erythrocyte Sedimentation Rate 16 mm/hr (0-20)
[2019-08-27 11:51] LABS: Absolute Lymphocyte Count 1.78 X10^3/uL (0.83-4.51); Absolute Neutrophil Count 5.1 X10^3/uL (2.0-7.7); Basophil# 0.09 X10^3/uL; Basophil% 1.1 % (0-1); Eosinophils% 4.8 % (0-5); Hematocrit 44.1 % (40-54); Hemoglobin 13.9 g/dL (13.0-16.5); Lymphocyte # 1.78 X10^3/ul (4.0); Lymphocyte % 21.3 % (19-41); Mean Corp Hgb Conc 31.5 g/dL (32-36); Mean Corpuscular Hgb 32.4 pg (27.0-32.0); Mean Corpuscular Volume 102.8 fL (80-94); Mean Platelet Vol. 10.5 fl (6.2-12.0); Monocyte# 0.81 X10^3/uL; Monocyte% 9.7 % (0-10); NRBC Flagged by Analyzer 0 % (0-5); Neutrophil # 5.14 X10^3/uL (2.7-7.7); Neutrophil % 61.3 % (47-70); Platelet Count 256 K/mm3 (150-450); RBC Distribution Width CV 12.4 % (11.6-14.6); RBC Distribution Width SD 46.4 fl (35.1-43.9); Red Blood Count 4.29 M/mm3 (4.6-6.2); White Blood Count 8.4 K/mm3 (4.4-11.0)
[2019-08-27 12:07] LABS: ALB/GLOB Ratio 0.8 RATIO (0.9-2.4); AST(SGOT) 25 U/L (15-37); Alanine Aminotransfer ALT/SGPT 35 U/L (16-61); Albumin, Serum 3.3 g/dL (3.2-5.0); Alkaline Phosphatase 101 U/L (45-117); Anion Gap 6 (5-15); BUN 16 mg/dL (7-18); BUN/Creat Ratio 16.9 RATIO (10-20); Calcium,Total 8.8 mg/dL (8.5-10.1); Chloride 106 mmol/L (98-107); Creatinine, Serum 0.95 mg/dL (0.70-1.30); EST Glomerular Filtration Rate 87 mL/min (>60); Est Glom Filt Rate - Afr Amer 105 mL/min (>60); Globulin 4.1 g/dL (2.2-4.2); Glucose 149 mg/dL (74-106); Potassium 4.6 mmol/L (3.5-5.1); Protein, Total 7.4 g/dL (6.4-8.2); Sodium Level 143 mmol/L (136-145)
== END ==
PROVIDERS: Family Provider Student in an Organized Health Care Education/Training Program; PCP Student in an Organized Health Care Education/Training Program; Referring Provider Podiatrist; Visit Provider Podiatrist
DX: L98.499 Non-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ulcer of skin of other sites with unspecified severity (principal); L03.90 Cellulitis, unspecified
CPT/HCPCS: 36415; 80053; 85025; 85652; 86140

== ENCOUNTER → 2019-09-04 06:56 | Outpatient (CLI) | payer MEDICAID, SELFPAY ==
[2019-08-13 13:12] VITALS: BMI 31.7
[2019-08-23 12:38] VITALS: BMI 31.8
--- NOTE | 2019-09-04 13:04 | STRESSREP ---
Stress Test Report Date: 09-04-19 Procedure: Pharmacologic stress nuclear imaging study Indications: Chest pain; CAD; CABG Consent: Per the patient Procedure: The patient underwent pharmacologic (Regadenoson) evaluation with a peak heart rate of 83 beats per minute (51 %predicted maximal heart rate) and a peak blood pressure of 120/68 mmHg. The baseline ECG demonstrated sinus rhythm: Nonspecific T wave abnormality. The peak pharmacologic ECG demonstrated no obvious ECG changes. There were no cardiac dysrhythmias pretest, during pharmacologic infusion, or recovery. There was no complaint of chest discomfort during pharmacologic infusion or recovery. The examination was discontinued secondary to completion of protocol. Impression: 1. Pharmacologic (Regadenoson) evaluation 2. Peak pharmacologic ECG with no obvious ECG changes. 3. There were no cardiac dysrhythmias pretest, during pharmacologic infusion, or recovery. 4. Nuclear images pending Myocardial perfusion imaging study: Technique: The patient was injected with 14.6 millicuries of technetium 99m Cardiolite and subsequently rest SPECT Cardiolite nuclear imaging was obtained in the horizontal long, vertical long, and short axis views. The patient underwent pharmacologic (Regadenoson) evaluation with a peak heart rate of 83 beats per minute (51 % percent predicted maximal heart rate) and a peak blood pressure of 120/68 mmHg. The patient was injected with 45.0 millicuries of technetium 99m Cardiolite and subsequently stress SPECT Cardiolite nuclear imaging was obtained in the horizontal long, vertical long, and short axis views. A gated Cardiolite study at peak stress was obtained. Interpretation: Rest and stress SPECT Cardiolite nuclear imaging status post realignment, normalization, and attenuation correction demonstrate areas of extra cardiac/gastrointestinal tracer uptake near the inferior segments and otherwise relative uniform tracer uptake and myocardial perfusion appearing within normal limits. There is end systolic thickening and brightening. The gated Cardiolite study demonstrates myocardial thickening and inward wall motion. The reported LVEF is 56 %. Impression: 1. Rest and stress SPECT Cardiolite nuclear imaging demonstrate myocardial perfusion changes appearing compatible with areas of extracardiac/gastrointestinal tracer uptake near the inferior segments and otherwise relative uniform tracer uptake and myocardial perfusion appearing within normal limits. 2. The gated Cardiolite study reports an LVEF of 56 %. This note was generated with ConceptoMedation software. It may contain incorrect words, spelling, and punctuation that were not noted in checking the note before signing.
== END ==
PROVIDERS: Family Provider Student in an Organized Health Care Education/Training Program; PCP Student in an Organized Health Care Education/Training Program; Referring Provider Internal Medicine Cardiovascular Disease; Visit Provider Internal Medicine Cardiovascular Disease
DX: R07.2 Precordial pain (principal); I25.10 Atherosclerotic heart disease of native coronary artery without angina pectoris; Z95.1 Presence of aortocoronary bypass graft
CPT/HCPCS: 78452; 93017; A9500; A4216; J2785

== ENCOUNTER → 2019-09-10 13:28 | Outpatient (CLI) | payer MEDICAID, SELFPAY ==
[2019-08-23 12:38] VITALS: BMI 31.8
--- NOTE | 2019-09-10 13:33 | MRI_ITS ---
STUDY: MRI LEFT MIDFOOT WITH/WITHOUT CONTRAST REASON FOR EXAM: Male, 59 years old. Left foot ulcer at the distal fifth metatarsal TECHNIQUE: Standarized fat and water weighted pulse sequences were obtained in all 3 orthogonal plane pre and post administration of IV Dotarem 18. COMPARISON: None. FINDINGS: There is mild degenerative arthrosis of the talonavicular articulation. Normal calcaneocuboid articulation. Normal navicular-cuneiform articulations. Normal intercuneiform articulations. Normal first tarsometatarsal articulation. Normal Lisfranc ligament. There is mild degenerative arthrosis of the second and third tarsometatarsal articulations. Normal cuboid fourth and cuboid fifth tarsometatarsal articulation. Normal first through fifth metatarsi. There is no demonstrated fracture of the metatarsal bones. Normal tibialis anterior tendon. Normal extensor hallucis longus tendon. Normal extensor digitorum longus tendons. Normal peroneus longus tendon and distal insertion. Normal peroneus brevis tendon and distal insertion. Normal intrinsic muscles of the mid and forefoot region. Normal extensor digitorum brevis muscle. There is lateral skin thickening and subcutaneous edema. There is focal defect consistent with a wound. There is no abnormal contrast enhancement. MRI/Lower Ext No Joint W/WO Cont IMPRESSION: Soft tissue swelling with skin thickening and focal ulcer. No MRI evidence of osteomyelitis. Electronically Signed: Neil Melo MD at 19:56 EST , Service support ,
== END ==
PROVIDERS: Family Provider Student in an Organized Health Care Education/Training Program; PCP Student in an Organized Health Care Education/Training Program; Referring Provider Podiatrist; Visit Provider Podiatrist
DX: L97.529 Non-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ulcer of other part of left foot with unspecified severity (principal); M86.9 Osteomyelitis, unspecified
CPT/HCPCS: 73720; A9575

== ENCOUNTER → 2019-09-19 15:08 | Outpatient (CLI) | payer MEDICAID, SELFPAY ==
[2019-08-23 12:38] VITALS: BMI 31.8
[2019-09-19 16:15] LABS: Platelet Count 266 K/mm3 (150-450); RET-HE 35.9 pg (30-35); Reticulocyte Count 1.71 % (0.5-1.5)
[2019-09-19 16:23] LABS: Erythrocyte Sedimentation Rate 37 mm/hr (0-20)
[2019-09-19 16:38] LABS: Rheumatoid Factor < 10.0 IU/mL (<15); Uric Acid 5.6 mg/dL (3.5-7.2)
[2019-09-21 04:09] LABS: Complement C3 128 mg/dL (82-167)
[2019-09-21 15:35] LABS: Thyroid Peroxidase AB 7 IU/mL (0-34)
[2019-09-21 16:08] LABS: Anti-Scleroderma-70 AB <0.2 AI (0.0-0.9); SJOGREN'S Anti-SS-A test < 0.2 AI (0.0-0.9); SJOGREN'S Anti-SS-B test < 0.2 AI (0.0-0.9)
[2019-09-21 16:39] LABS: ANTINUCLEAR ANTIBODIES DIRECT Negative (Negative); Anti-Mitochondrial AB <20.0 Units (0.0-20.0); Anti-dsDNA Ab 7 IU/mL (0-9)
== END ==
PROVIDERS: Family Provider Student in an Organized Health Care Education/Training Program; PCP Student in an Organized Health Care Education/Training Program; Referring Provider Psychiatry & Neurology Neurology; Visit Provider Psychiatry & Neurology Neurology
DX: G62.9 Polyneuropathy, unspecified (principal); M06.4 Inflammatory polyarthropathy; M25.522 Pain in left elbow; M25.552 Pain in left hip
CPT/HCPCS: 36415; 83516; 84550; 85045; 85652; 86038; 86160; 86225; 86235; 86376; 86431

== ENCOUNTER → 2019-11-05 09:51 | Outpatient (CLI) | payer MEDICAID, SELFPAY ==
[2019-10-31 09:34] VITALS: BMI 28.7
--- NOTE | 2019-11-05 09:55 | NM_ITS ---
CLINICAL: 59-year-old male with apparent frostbite injury involving the third digit of the right hand. LIMITED 99m Tc MDP THREE PHASE BONE SCINTIGRAPHY COMPARISON: None available FINDINGS: Following the intravenous administration of 25.5 mCi of 99m Tc MDP, three-phase bone acquisitions of the distal lower extremities reveal: 1. The flow and immediate static blood pool acquisitions demonstrate symmetric arterial phase distribution of the radiopharmaceutical. There is venous hyperemia manifested in the region of the distal phalanx of the third digit of the right hand, the second metacarpophalangeal articulation of the right hand and distribution of the greater multangular carpal bone of the right wrist. 2. Delayed images depict persistent increased radiopharmaceutical concentration identified in the distal phalanx of the third digit of the right hand correlating with the blood pool changes. 3. Facilitated uptake is noted in the right hand-second metacarpophalangeal articulation and right wrist involving the greater multangular carpal bone correlating with the previously described venous hyperemia. 4. Late projections defined facilitated uptake noted in the lateral compartment of the right wrist, third metacarpal phalangeal articulation of the bilateral hands. 5. The remaining limited skeletal structures are scintigraphically unremarkable. NM/Bone Scan Three Phase IMPRESSION: 1. The maintenance of venous blood pool activity and facilitated uptake noted on delayed projections involving the third digit of the right hand is consistent with the pattern associated with mild ischemia typically requiring no surgical intervention. (Tamayo and [place], Radiology 170: 511, 1989). 2. Increased tracer concentration noted second metacarpophalangeal articulation of the right hand and right wrist on both blood pool and late projections likely represents a component of synovial inflammation. 3. 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 If infection is a diagnostic consideration in any location, correlation with labeled leukocyte imaging is recommended. Electronically Signed: Jag Atkinson DO at 23:37 EST Tel , Service support ,
== END ==
PROVIDERS: PCP Student in an Organized Health Care Education/Training Program
DX: T33.521A Superficial frostbite of right hand, initial encounter (principal); X31.XXXA Exposure to excessive natural cold, initial encounter; Y93.9 Activity, unspecified; Y92.9 Unspecified place or not applicable; Y99.9 Unspecified external cause status
CPT/HCPCS: 78315

== ENCOUNTER 2019-11-14 09:15 | Outpatient (RCR) | payer MEDICAID, SELFPAY ==
[2019-08-23 12:38] VITALS: BMI 31.8
[2019-10-24 10:02] VITALS: BP 126/84; PULSE 84; RESP 18; TEMP 36.9; BMI 28.7
--- NOTE | 2019-10-24 11:10 | PCM.WC.PN ---
(1) Chronic ulcer of left foot with necrosis of muscle Status: Chronic Current Visit: Yes Code(s): L97.523 - Non-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ulcer of other part of left foot with necrosis of muscle Comment: no necrosis or infection is noted. capsular layer is in the wound bed (2) Diabetic ulcer of left foot with muscle involvement without evidence of necrosis Status: Chronic Current Visit: Yes Qualifiers: Diabetic foot ulcer location: midfoot Diabetes mellitus type: type 2 Qualified Code(s): E11.621 - Type 2 diabetes mellitus with foot ulcer; L97.425 - Non-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ulcer of left heel and midfoot with muscle involvement without evidence of necrosis Code(s): E11.621 - Type 2 diabetes mellitus with foot ulcer; L97.525 - Non-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ulcer of other part of left foot with muscle involvement without evidence of necrosis (3) Other specified peripheral vascular diseases Status: Chronic Current Visit: Yes Code(s): I73.89 - Other specified peripheral vascular diseases (4) Type 2 diabetes mellitus with diabetic polyneuropathy Status: Chronic Current Visit: Yes Qualifiers: Code(s): E11.42 - Type 2 diabetes mellitus with diabetic polyneuropathy (5) Hammertoe of left foot Status: Chronic Current Visit: Yes Code(s): M20.42 - Other hammer toe(s) (acquired), left foot Type of Wound Date of Service: 10/24/19 Chief Complaint: Left foot ulcer History of Wound: Mr. Espinoza is a 59-year-old with past medical history as stated above who is well-known to the wound center. He is following up for left foot ulcer with an onset of approximately 10 months ago. He has tried dressing changes, serial debridements, offloading while he is not at work which is actually very minimal amount. He also recently saw vascular surgery who is considering additional intervention. He also had an MRI to rule out osteomyelitis due to the recent increase in ulcer depth which was negative. He is amendable to proceed with offloading at this time and advanced wound healing products if he qualifies. He denies fever, chill, nausea, vomiting, loss of appetite or pain to the foot. Progress of Wound: Stable - Physical Exam Vital Signs Temp Pulse Resp BP 98.4 F 84 18 126/84 H 10/24/19 10:10/24/19 10:10/24/19 10:02 10/24/19 10:02 General: Alert, Oriented x3, Cooperative, No apparent distress HEENT: Atraumatic Extremities: No cyanosis, Capillary Refill Less than 3 Seconds, No Calf Tenderness, Diminished Peripheral Pulses, Edema - scant, - - Digital lesser toe contraction. Prominent fifth metatarsal head Skin: Ulcer/ Wound - No purulence, erythema, streaking, odor, infection. There is exposed capsule/ muscle tissue in the wound bed however this is not infected or macerated or with necrosis today. Wound Measurements and Assessment WC - Nurse 1 - General Ulcer Measurement Start: 10/24/19 10:02 Freq: Status: Active Protocol: Activity Type Activity Date Activity User E-Sign Co-Sign Detail Recorded Client Recorded Date Recorded By Document 10/24/19 10:06 AMINTA [id number] 10/24/19 10:09 AMINTA 10/24/19 10:06 Wound Center Nurse 1 [Ulcer Assessment] 11. L plantar -Combined with other wound No -Current Size (cm) - Length 1.7 -Current Size (cm) - Width 1.8 -Current Size (cm) - Depth 0.7 -Total Square Cm 3.06 -Photo Taken Yes -Tunneling No -Undermining/Tunneling Yes -Undermining/Tunneling Starts (O' 9 clock) -Undermining/Tunneling Ends (O'clock) 12 -Maximum Distance (cm) 0.3 -Circular Undermining No -Exudate Amt Small -Exudate Type Serosanguineous -Wound Margin Thickened -Granulation Amt Medium (34-66%) -Granulation Quality [place] -Slough/Fibrin Yes -Necrosis Amt Medium (34-66%) -Necrotic Tissue Type Adherent Slough -Structure Exposed N/A -Texture (Mechelle-wound Skin Appearance) Assessed,Callus -Moisture (M[place]helle-wound Skin Appearance Assessed ) -Color ([place]helle-wound Skin Appearance) Assessed -Temperature ([place]helle-wound Skin No Abnormality Appearance) (Pt Warm) -Tenderness on Palpation (Mechelle-wound No Skin Appearance) -Ulcer Cleansing Wound Cleanser -Foul Odor after Cleansing No -Anesthetic Used 4% Lidocaine Solution [Edema Assessment] -Lower Limb Edema Present Yes -Right Calf (cm) 37.2 -Right Ankle (cm) 20 -Left Calf (cm) 36.6 -Left Ankle (cm) 20 WC - Nurse 2 - General Ulcer CM Notes Start: 10/24/19 10:02 Freq: Status: Active Protocol: Activity Type Activity Date Activity User E-Sign Co-Sign Detail Recorded Client Recorded Date Recorded By Document 10/24/19 11:00 [id number] 10/24/19 11:01 10/24/19 11:00 Wound Center Nurse 2 [Procedure/Treatment] 11. L plantar -Time 11:01 -Correct Patient Yes -Correct Side, Site, Position Yes -Correct Procedure Yes -Procedure Performed Yes -Type of Procedure Debridement -Clinical Debridement Subcutaneous -Post Debridement Size (cm) - Length 1.8 -Post Debridement Size (cm) - Width 1.7 -Post Debridement Size (cm) - Depth 0.7 -Total Square Cm 3.06 -Wound/Ulcer Outcome Not Healed -Ulcer Cleansing Rinsed/ Irrigated with Saline -Foul Odor after Cleansing No -Bioengineered Tissue No -Bleeding Controlled with Pressure -Offloading Yes -Type of Offloading Total Contact Cast (TCC) -Treatment Response Procedure Tolerated Well [See Physician Procedure note for Specifics] Pain Scale: 0-10 Numeric [Pain] -Is Patient Pain Free? Yes Musculoskeletal: No Tenderness to Palpation of Joints or Extremities, Muscle Wasting Neurological: - - Lack of normal epicritic sensation light touch consistent with neuropathy status Psych/Mental Status: Normal Affect, Appropriate Debridement Note Post-Debridement Measurements/Treatment - Nurse 2 - General Ulcer CM Notes Start: 10/24/19 10:02 Freq: Status: Active Protocol: Activity Type Activity Date Activity User E-Sign Co-Sign Detail Recorded Client Recorded Date Recorded By Document 10/24/19 11:00 [email or web address] [id number] 10/24/19 11:01 10/24/19 11:00 Wound Center Nurse 2 11. L plantar -Time 11:01 -Correct Patient Yes -Correct Side, Site, Position Yes -Correct Procedure Yes -Procedure Performed Yes -Type of Procedure Debridement -Clinical Debridement Subcutaneous -Post Debridement Size (cm) - Length 1.8 -Post Debridement Size (cm) - Width 1.7 -Post Debridement Size (cm) - Depth 0.7 -Total Square Cm 3.06 -Wound/Ulcer Outcome Not Healed -Ulcer Cleansing Rinsed/ Irrigated with Saline -Foul Odor after Cleansing No -Bioengineered Tissue No -Bleeding Controlled with Pressure -Offloading Yes -Type of Offloading Total Contact Cast (TCC) -Treatment Response Procedure Tolerated Well Pain Scale: 0-10 Numeric Is Patient Pain Free? Yes Wound debrided: sub 5th metatarsal head Laterality: Left Wound Grade/Stage: grade 2 Type of Debridement: Excisional debridement Anesthesia Used: 5% Lidocaine Gel Depth: in the subcutaneous layer Percentage of wound debrided: 100 Instrument Used: #15 blade Tissue Removed: fibrous, devitalized subcutaneous, biofilm, slough Severity: Fat Layer Exposed Amount of bleeding with debridement: Mild Bleeding Controlled with: Pressure Patient tolerated procedure well Assessment/Plan Active Problems (Last Reviewed 10/18/19 @ 11:24 by Linda Leon) Diabetic ulcer of left foot with muscle involvement without evidence of necrosis (Chronic) 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 capsular layer is in the wound bed Other specified peripheral vascular diseases (Chronic) Type 2 diabetes mellitus with diabetic polyneuropathy (Chronic) Hammertoe of left foot (Chronic) Assessment: Left foot ulcer with capsule/muscle tissue exposed, Rousseau grade 2, no infection. Left foot deformities including tailor bunion and hammertoe. Peripheral vascular disease. Diabetes with polyneuropathy. Malnutrition. Delayed healing. Raynaud's disease Plan: I reviewed and discussed his case today. Subcutaneous excisional debridement was performed as noted in the clinical panel. He was amenable to proceed forward with total contact casting today. Tegan and a dry dressing was applied. Verbal consent was obtained and the total contact cast was applied to the left lower extremity in a well-padded and neutral manner. He tolerated this well. He was advised he needs to keep this clean, dry, and intact. 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 He inquires about placing a larger boot over the cast to complete his work and he understands this is absolute not recommended. To continue proper glycemic control nutritional supplementation optimize healing. Is noted his last hemoglobin A1c we have on file here is 5.9%. This is a chronic ulceration has been present for approximately 10 months. I recommend application of advanced wound healing product. Prior authorization will be performed for epi-cord. Secondary choice would be for epi-fix. This is medically necessary for limb salvage. He is at risk for further amputation and systemic deterioration secondary to this chronic ulcer. He was advised to follow-up with his vascular surgeon, Dr. Pena as scheduled. He had recent updated vascular studies performed and Dr. Pena is considering additional intervention. I recommend proceeding if there are options available. Due to the increased depth he did also go through a recent osteomyelitis work-up. Osteomyelitis signs were not apparent on the MRI and this will be monitored very closely. Compliance was discussed. The total contact cast will additionally secondarily address his mild edema to his leg. He mentioned that he is considering a finger surgery and also knee surgery. I recommend he also follow-up with those specialist to move forward with his treatment plans. He was reassured there are no local signs of infection on the foot today. I answered his questions. To return to the wound healing center in 1 week or call sooner if he has any questions or concerns.
[2019-10-31 09:34] VITALS: BP 110/59; PULSE 87; RESP 18; TEMP 36.4; BMI 28.7
--- NOTE | 2019-10-31 12:11 | PN.PCM_ITS ---
(1) Chronic ulcer of left foot with necrosis of muscle Status: Chronic Current Visit: Yes Code(s): L97.523 - Non-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ulcer of other part of left foot with necrosis of muscle Comment: no necrosis or infection is noted. capsular layer is in the wound bed (2) Diabetic ulcer of left foot with muscle involvement without evidence of necrosis Status: Chronic Current Visit: Yes Qualifiers: Diabetic foot ulcer location: midfoot Diabetes mellitus type: type 2 Qualified Code(s): E11.621 - Type 2 diabetes mellitus with foot ulcer; L97.425 - Non-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ulcer of left heel and midfoot with muscle involvement without evidence of necrosis Code(s): E11.621 - Type 2 diabetes mellitus with foot ulcer; L97.525 - Non- 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ulcer of other part of left foot with muscle involvement without evidence of necrosis (3) Other specified peripheral vascular diseases Status: Chronic Current Visit: Yes Code(s): I73.89 - Other specified peripheral vascular diseases (4) Type 2 diabetes mellitus with diabetic polyneuropathy Status: Chronic Current Visit: Yes Qualifiers: Code(s): E11.42 - Type 2 diabetes mellitus with diabetic polyneuropathy (5) Hammertoe of left foot Status: Chronic Current Visit: Yes Code(s): M20.42 - Other hammer toe(s) (acquired), left foot (6) Non-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ulcer of other part of right foot with fat layer exposed Status: Chronic Current Visit: Yes Code(s): L97.512 - Non-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ulcer of other part of right foot with fat layer exposed (7) Hammertoe of right foot Status: Chronic Current Visit: Yes Code(s): M20.41 - Other hammer toe(s) (acquired), right foot Type of Wound Date of Service: 10/31/19 Chief Complaint: Left foot ulcer History of Wound: Mr. Espinoza is a 59-year-old with past medical history as stated above who is well-known to the wound center. He is able to offload better at this time and were total contact cast this last week. He relates there was moisture noted in the cast was removed today. He also recently saw vascular surgery who is considering additional intervention. He also had an MRI to rule out osteomyelitis due to the recent increase in ulcer depth which was negative. He is amendable to proceed with offloading at this time and advanced wound healing products if he qualifies. He denies fever, chill, nausea, vomi ting, loss of appetite or pain to the foot. He also relates that he has a new ulcer to his right second toe with an onset of this past week. He denies redness or odor or known trauma. It also noted he is scheduled to have partial finger amputations performed on the right side secondary to ray nods associated tissue loss Progress of Wound: Stable - Physical Exam Vital Signs Temp Pulse Resp BP 97.6 F L 87 18 110/59 L 10/31/19 09:34 10/31/19 09:34 10/31/19 09:34 10/31/19 09:34 General: Alert, Oriented x3, Cooperative, No apparent distress HEENT: Atraumatic Extremities: No cyanosis, Capillary Refill Less than 3 Seconds, No Calf Tender ness, Diminished Peripheral Pulses, - - Right hallux amputation. Dorsal contraction of all lesser toes bilateral. Prominent fourth and fifth metatarsal heads of the left foot noted. No bogginess or fluctuance. Compartments to bilateral lower extremity remain soft to palpate Skin: Ulcer/ Wound - New skin discontinuity to right second toe with granular base and no deep tissue exposure or necrosis noted. The left foot ulcer site has progressive depth with muscle and capsule tissue identified that is devitalized. There is exposed periosteal tissue and the bone is in near approximation. The peripheral skin bilateral feet remain hairless and atrophic Wound Measurements and Assessment WC - Nurse 1 - General Ulcer Measurement Start: 10/24/19 10:02 Freq: Status: Active Protocol: Activity Type Activity Date Activity User E-Sign Co-Sign Detail Recorded Client Recorded Date Recorded By Document 10/31/19 09:34 RB [id number] 10/31/19 09:40 RB 10/31/19 09:34 Wound Center Nurse 1 [Ulcer Assessment] 11. L plantar -Combined with other wound No -Current Size (cm) - Length 1.8 -Current Size (cm) - Width 1.7 -Current Size (cm) - Depth 0.5 -Total Square Cm 3.06 -Tunneling No -Undermining/Tunneling Yes -Undermining/Tunneling Starts (O' 10 clock) -Undermining/Tunneling Ends (O'clock) 12 -Maximum Distance (cm) 0.3 -Circular Undermining No -Exudate Amt Small -Exudate Type Serosanguineous -Wound Margin Thickened -Granulation Amt Medium (34-66%) -Granulation Quality Lefors -Slough/Fibrin Yes -Necrosis Amt Medium (34-66%) -Necrotic Tissue Type Adherent Slough -Structure Exposed N/A -Texture (Mechelle-wound Skin Appearance) Assessed -Moisture (Mechelle-wound Skin Appearance Assessed, ) Maceration -Color (Mechelle-wound Skin Appearance) Assessed -Temperature (Mechelle-wound Skin No Abnormality Appearance) (Pt Warm) -Tenderness on Palpation (Mechelle-wound No Skin Appearance) -Ulcer Cleansing Wound Cleanser -Foul Odor after Cleansing No -Anesthetic Used 5% Lidocaine Gel [Edema Assessment] -Lower Limb Edema Present Yes -Left Calf (cm) 36.5 -Left Ankle (cm) 21.2 WC - Nurse 2 - General Ulcer CM Notes Start: 10/24/19 10:02 Freq: Status: Active Protocol: Activity Type Activity Date Activity User E-Sign Co-Sign Detail Recorded Client Recorded Date Recorded By Document 10/31/19 09:45 MARJORIE [id number] 10/31/19 09:52 MARJORIE 10/31/19 09:45 Wound Center Nurse 2 [Procedure/Treatment] 12-right 2nd toe -Time 09:51 -Correct Patient Yes -Correct Side, Site, Position Yes -Correct Procedure Yes -Procedure Performed Yes -Type of Procedure Debridement -Clinical Debridement Subcutaneous -Post Debridement Size (cm) - Length 0.6 -Post Debridement Size (cm) - Width 0.3 -Post Debridement Size (cm) - Depth 0.1 -Total Square Cm 0.18 -Wound/Ulcer Outcome Not Healed -Ulcer Cleansing Rinsed/ Irrigated with Saline -Foul Odor after Cleansing No -Bioengineered Tissue No -Bleeding Controlled with Pressure -Offloading Yes -Type of Offloading Surgical Shoe -Treatment Response Procedure Tolerated Well 11. L plantar -Time 09:45 -Correct Patient Yes -Correct Side, Site, Position Yes -Correct Procedure Yes -Procedure Performed Yes -Type of Procedure Debridement -Clinical Debridement Subcutaneous -Post Debridement Size (cm) - Length 1.8 -Post Debridement Size (cm) - Width 1.7 -Post Debridement Size (cm) - Depth 0.7 -Total Square Cm 3.06 -Wound/Ulcer Outcome Not Healed -Ulcer Cleansing Rinsed/ Irrigated with Saline -Foul Odor after Cleansing No -Bioengineered Tissue No -Bleeding Controlled with Pressure -Offloading Yes -Type of Offloading Surgical Shoe -Treatment Response Procedure Tolerated Well [See Physician Procedure note for Specifics] Pain Scale: 0-10 Numeric [Pain] -Is Patient Pain Free? Yes Musculoskeletal: No Tenderness to Palpation of Joints or Extremities, Muscle Wasting Neurological: - - Lack of epicritic sensation light touch is consistent with neuropathy status Psych/Mental Status: Normal Affect, Appropriate Debridement Note Post-Debridement Measurements/Treatment WC - Nurse 2 - General Ulcer CM Notes Start: 10/24/19 10:02 Freq: Status: Active Protocol: Activity Type Activity Date Activity User E-Sign Co-Sign Detail Recorded Client Recorded Date Recorded By Document 10/24/19 11:00 [id number] 10/24/19 11:01 Document 10/31/19 09:45 [id number] 10/31/19 09:52 10/24/19 10/31/19 11:00 09:45 Wound Center Nurse 2 12-right 2nd toe -Time 09:51 -Correct Patient Yes -Correct Side, Site, Position Yes -Correct Procedure Yes -Procedure Performed Yes -Type of Procedure Debridement -Clinical Debridement Subcutaneous -Post Debridement Size (cm) - Length 0.6 -Post Debridement Size (cm) - Width 0.3 -Post Debridement Size (cm) - Depth 0.1 -Total Square Cm 0.18 -Wound/Ulcer Outcome Not Healed -Ulcer Cleansing Rinsed/ Irrigated with Saline -Foul Odor after Cleansing No -Bioengineered Tissue No -Bleeding Controlled with Pressure -Offloading Yes -Type of Offloading Surgical Shoe -Treatment Response Procedure Tolerated Well 11. L plantar -Time 11:01 09:45 -Correct Patient Yes Yes -Correct Side, Site, Position Yes Yes -Correct Procedure Yes Yes -Procedure Performed Yes Yes -Type of Procedure Debridement Debridement -Clinical Debridement Subcutaneous Subcutaneous -Post Debridement Size (cm) - Length 1.8 1.8 -Post Debridement Size (cm) - Width 1.7 1.7 -Post Debridement Size (cm) - Depth 0.7 0.7 -Total Square Cm 3.06 3.06 -Wound/Ulcer Outcome Not Healed Not Healed -Ulcer Cleansing Rinsed/ Rinsed/ Irrigated with Irrigated with Saline Saline -Foul Odor after Cleansing No No -Bioengineered Tissue No No -Bleeding Controlled with Pressure Pressure -Offloading Yes Yes -Type of Offloading Total Contact Surgical Shoe Cast (TCC) -Treatment Response Procedure Procedure Tolerated Well Tolerated Well Pain Scale: 0-10 Numeric Is Patient Pain Free? Yes Yes Wound debrided: plantar lateral foot Laterality: Left Wound Grade/Stage: grade 2 Type of Debridement: Excisional debridement Anesthesia Used: 5% Lidocaine Gel Depth: in the subcutaneous layer Percentage of wound debrided: 100 Instrument Used: #15 blade, Forceps Tissue Removed: fibrous, devitalized subcutaneous/muscle/capsule, biofilm, slough Severity: Necrosis of Muscle Amount of bleeding with debridement: Mild Bleeding Controlled with: Pressure Patient tolerated procedure well - Additional Wound Wound debrided: distal medial second toe Laterality: Right Wound Grade/Stage: grade 1 Type of Debridement: Excisional debridement Anesthesia Used: 5% Lidocaine Gel Depth: in the subcutaneous layer Percentage of wound debrided: 100 Instrument Used: #15 blade Tissue Removed: fibrous, devitalized subcutaneous, biofilm, slough Severity: Fat Layer Exposed Amount of bleeding with debridement: Mild Bleeding Controlled with: Pressure Patient tolerated procedure: Patient tolerated procedure well Assessment/Plan Active Problems (Last Reviewed 10/18/19 @ 11:24 by Linda Leon) Diabetic ulcer of left foot with muscle involvement without evidence of necrosis (Chronic) 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 capsular layer is in the wound bed Non-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ulcer of other part of right foot with fat layer exposed (Chronic) Hammertoe of right foot (Chronic) Other specified peripheral vascular diseases (Chronic) Type 2 diabetes mellitus with diabetic polyneuropathy (Chronic) Hammertoe of left foot (Chronic) Assessment: Left foot ulcer with capsule/muscle tissue exposed, Rousseau grade 2, no infection. New right second toe ulcer with fat layer exposed, no infection. Left foot deformities including tailor bunion and hammertoe. Right hammertoes noted and prior hallux amputation. Peripheral vascular disease. Diabetes with polyneuropathy. Malnutrition. Delayed healing. Raynaud's disease Plan: I reviewed and discussed his case today. Subcutaneous excisional debridement was performed as noted in the clinical panel to the right foot and also including capsule muscle tissue in the left foot. He was amenable to proceed forward with total contact casting today. There is some maceration to the callus peripherally and I recommend taking a week off of the total contact cast. This will be considered again next week. Change bilateral ulcer dressings daily with SensibleSelfel Ag. He will resume offloading the left foot with a cam walker boot that he already has at home. I also urged him to use a walker. He relates he does not feel safe using crutches or knee roller. He was also provided with a surgical shoe and advised to heel weight-bear to the right foot due to his new ulcer on his toe. To continue proper glycemic control nutritional supplementation optimize healing. Is noted his last hemoglobin A1c we have on file here is 5.9%. This is a chronic ulceration has been present for approximately 10 months. I recommend application of advanced wound healing product. Prior authorization will be performed for epi-cord. Secondary choice would be for epi-fix. This is medically necessary for limb salvage. He is at risk for further amputation and systemic deterioration secondary to this chronic ulcer. He was advised to follow-up with his vascular surgeon, Dr. Pena as scheduled. He had recent updated vascular studies performed and Dr. Pena is considering additional intervention. I recommend proceeding if there are options available. Due to the increased depth he did also go through a recent osteomyelitis work-up. Osteomyelitis signs were not apparent on the MRI and this will be monitored very closely. Compliance was discussed. The total contact cast will additionally secondarily address his mild edema to his leg. He mentioned that he is considering a finger surgery and also knee surgery. I recommend he also follow-up with those specialist to move forward with his treatment plans. He was reassured there are no local signs of infection on the foot today. I answered his questions. To return to the wound healing center in 1 week or call sooner if he has any questions or concerns.
[2019-11-07 09:56] VITALS: BP 132/81; PULSE 83; RESP 18; TEMP 36.9; BMI 28.7
--- NOTE | 2019-11-07 09:59 | WC ---
pt states accucheck at 400 this am. pt states I ate acandy bar for breakfast. pt given glucerna at wound center appointment
--- NOTE | 2019-11-07 10:59 | PN.PCM_ITS ---
(1) Chronic ulcer of left foot with necrosis of muscle Status: Chronic Current Visit: Yes Code(s): L97.523 - Non-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ulcer of other part of left foot with necrosis of muscle Comment: no necrosis or infection is noted. capsular layer is in the wound bed (2) Diabetic ulcer of left foot with muscle involvement without evidence of necrosis Status: Chronic Current Visit: Yes Qualifiers: Diabetic foot ulcer location: midfoot Diabetes mellitus type: type 2 Qualified Code(s): E11.621 - Type 2 diabetes mellitus with foot ulcer; L97.425 - Non-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ulcer of left heel and midfoot with muscle involvement without evidence of necrosis Code(s): E11.621 - Type 2 diabetes mellitus with foot ulcer; L97.525 - Non- 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ulcer of other part of left foot with muscle involvement without evidence of necrosis (3) Other specified peripheral vascular diseases Status: Chronic Current Visit: Yes Code(s): I73.89 - Other specified peripheral vascular diseases (4) Type 2 diabetes mellitus with diabetic polyneuropathy Status: Chronic Current Visit: Yes Qualifiers: Code(s): E11.42 - Type 2 diabetes mellitus with diabetic polyneuropathy (5) Hammertoe of left foot Status: Chronic Current Visit: Yes Code(s): M20.42 - Other hammer toe(s) (acquired), left foot (6) Non-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ulcer of other part of right foot with fat layer exposed Status: Resolved Current Visit: Yes Code(s): L97.512 - Non-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ulcer of other part of right foot with fat layer exposed (7) Hammertoe of right foot Status: Chronic Current Visit: Yes Code(s): M20.41 - Other hammer toe(s) (acquired), right foot (8) Colonization status Status: Suspected Current Visit: Yes Code(s): Z22.9 - Carrier of infectious disease, unspecified Type of Wound Date of Service: 11/07/19 Chief Complaint: Left foot ulcer History of Wound: Mr. Espinoza is a 59-year-old with past medical history as stated above who is well-known to the wound center. He is able to offload better at this time. He also recently saw vascular surgery who did not recommend additional intervention at this time. He also had an MRI to rule out osteomyelitis due to the recent increase in ulcer depth which was negative. he denies fever, chill, nausea, vomiting, loss of appetite or pain to the foot. He denies drainage to the second toe. Progress of Wound: Improving quality - Physical Exam Vital Signs Temp Pulse Resp BP 98.4 F 83 18 132/81 H 11/07/19 09:56 11/07/19 09:56 11/07/19 09:56 11/07/19 09:56 General: Alert, Oriented x3, Cooperative, No apparent distress Extremities: No cyanosis, Capillary Refill Less than 3 Seconds, No Calf Tenderness, Diminished Peripheral Pulses, Edema Skin: Ulcer/ Wound - No purulence, erythema, string, odor, infection. Adjacent skin is atrophic. Second toe appears to be healed today. With full epithelialization noted. The plantar metatarsal head ulcer site has improved in quality with no eschar or dark discoloration. There is some fibrous tissue in the proximal wound bed and there is some exposed capsule however not as much as last week. This appears healthier with less inflammation. There is a surrounding hyperkeratotic border Wound Measurements and Assessment WC - Nurse 1 - General Ulcer Measurement Start: 10/24/19 10:02 Freq: Status: Active Protocol: Activity Type Activity Date Activity User E-Sign Co-Sign Detail Recorded Client Recorded Date Recorded By Document 11/07/19 09:56 [id number] 11/07/19 10:00 RB 11/07/19 09:56 Wound Center Nurse 1 [Ulcer Assessment] 12-right 2nd toe -Combined with other wound No -Current Size (cm) - Length 0.1 -Current Size (cm) - Width 0.1 -Current Size (cm) - Depth 0.1 -Total Square Cm 0.01 -Tunneling No -Undermining/Tunneling No -Circular Undermining No -Exudate Amt None Present -Wound Margin Flat & Intact -Granulation Amt Large (67-100%) -Granulation Quality Revere -Slough/Fibrin Yes -Necrosis Amt Small (1-33%) -Necrotic Tissue Type Adherent Slough -Structure Exposed N/A -Texture (Mechelle-wound Skin Appearance) Assessed -Moisture (Mechelle-wound Skin Appearance Assessed ) -Color (Mechelle-wound Skin Appearance) Assessed -Temperature (Mechelle-wound Skin No Abnormality Appearance) (Pt Warm) -Tenderness on Palpation (Mechelle-wound No Skin Appearance) -Ulcer Cleansing Wound Cleanser -Foul Odor after Cleansing No -Anesthetic Used 4% Lidocaine Solution 11. L plantar -Combined with other wound No -Current Size (cm) - Length 1.7 -Current Size (cm) - Width 2 -Current Size (cm) - Depth 0.7 -Total Square Cm 3.4 -Tunneling No -Undermining/Tunneling No -Circular Undermining No -Exudate Amt Medium -Exudate Type Serosanguineous -Wound Margin Thickened -Granulation Amt Medium (34-66%) -Granulation Quality Revere -Slough/Fibrin Yes -Necrosis Amt Medium (34-66%) -Necrotic Tissue Type Adherent Slough -Structure Exposed N/A -Texture (Mechelle-wound Skin Appearance) Callus -Moisture (Mechelle-wound Skin Appearance Assessed ) -Color (Mechelle-wound Skin Appearance) Assessed -Temperature (Mechelle-wound Skin No Abnormality Appearance) (Pt Warm) -Tenderness on Palpation (Mechelle-wound No Skin Appearance) -Ulcer Cleansing Wound Cleanser -Foul Odor after Cleansing No -Anesthetic Used 4% Lidocaine Solution 11/07/19 09:59 Wound Center by Corinne Ott pt states accucheck at 400 this am. pt states I ate acandy bar for breakfast. pt given glucerna at wound center appointment Initialized on 11/07/19 09:59 - END OF NOTE WC - Nurse 2 - General Ulcer CM Notes Start: 10/24/19 10:02 Freq: Status: Active Protocol: Activity Type Activity Date Activity User E-Sign Co-Sign Detail Recorded Client Recorded Date Recorded By Document 11/07/19 10:18 MARJORIE [id number] 11/07/19 10:23 MARJORIE 11/07/19 10:18 Wound Center Nurse 2 [Procedure/Treatment] 12-right 2nd toe -Correct Patient No -Correct Side, Site, Position No -Correct Procedure No -Procedure Performed No -Wound/Ulcer Outcome Not Healed 11. L plantar -Time 10:21 -Correct Patient Yes -Correct Side, Site, Position Yes -Correct Procedure Yes -Procedure Performed Yes -Type of Procedure Debridement -Clinical Debridement Subcutaneous -Post Debridement Size (cm) - Length 2.2 -Post Debridement Size (cm) - Width 2.2 -Post Debridement Size (cm) - Depth 0.9 -Total Square Cm 4.84 -Wound/Ulcer Outcome Not Healed -Ulcer Cleansing Rinsed/ Irrigated with Saline -Foul Odor after Cleansing No -Bioengineered Tissue No -Bleeding Controlled with Pressure -Offloading Yes -Type of Offloading Camwalker -Treatment Response Procedure Tolerated Well [See Physician Procedure note for Specifics] Pain Scale: 0-10 Numeric [Pain] -Is Patient Pain Free? Yes Musculoskeletal: No Tenderness to Palpation of Joints or Extremities, Muscle Wasting, - - Dorsal contraction lesser digits prominent metatarsal head Neurological: - - Lack of epicritic sensation light touch consistent with neuropathy status Psych/Mental Status: Normal Affect, Appropriate Debridement Note Post-Debridement Measurements/Treatment WC - Nurse 2 - General Ulcer CM Notes Start: 10/24/19 10:02 Freq: Status: Active Protocol: Activity Type Activity Date Activity User E-Sign Co-Sign Detail Recorded Client Recorded Date Recorded By Document 10/24/19 11:00 [id number] 10/24/19 11:01 Document 10/31/19 09:45 [id number] 10/31/19 09:52 Document 11/07/19 10:18 [id number] 11/07/19 10:23 10/24/19 10/31/19 11/07/19 11:00 09:45 10:18 Wound Center Nurse 2 12-right 2nd toe -Time 09:51 -Correct Patient Yes No -Correct Side, Site, Position Yes No -Correct Procedure Yes No -Procedure Performed Yes No -Type of Procedure Debridement -Clinical Debridement Subcutaneous -Post Debridement Size (cm) - Length 0.6 -Post Debridement Size (cm) - Width 0.3 -Post Debridement Size (cm) - Depth 0.1 -Total Square Cm 0.18 -Wound/Ulcer Outcome Not Healed Not Healed -Ulcer Cleansing Rinsed/ Irrigated with Saline -Foul Odor after Cleansing No -Bioengineered Tissue No -Bleeding Controlled with Pressure -Offloading Yes -Type of Offloading Surgical Shoe -Treatment Response Procedure Tolerated Well 11. L plantar -Time 11:01 09:45 10:21 -Correct Patient Yes Yes Yes -Correct Side, Site, Position Yes Yes Yes -Correct Procedure Yes Yes Yes -Procedure Performed Yes Yes Yes -Type of Procedure Debridement Debridement Debridement -Clinical Debridement Subcutaneous Subcutaneous Subcutaneous -Post Debridement Size (cm) - Length 1.8 1.8 2.2 -Post Debridement Size (cm) - Width 1.7 1.7 2.2 -Post Debridement Size (cm) - Depth 0.7 0.7 0.9 -Total Square Cm 3.06 3.06 4.84 -Wound/Ulcer Outcome Not Healed Not Healed Not Healed -Ulcer Cleansing Rinsed/ Rinsed/ Rinsed/ Irrigated with Irrigated with Irrigated with Saline Saline Saline -Foul Odor after Cleansing No No No -Bioengineered Tissue No No No -Bleeding Controlled with Pressure Pressure Pressure -Offloading Yes Yes Yes -Type of Offloading Total Contact Surgical Shoe Camwalker Cast (TCC) -Treatment Response Procedure Procedure Procedure Tolerated Well Tolerated Well Tolerated Well Pain Scale: 0-10 Numeric Is Patient Pain Free? Yes Yes Yes Wound debrided: sub 5 metatarsal base Laterality: Left Wound Grade/Stage: grade 2 Type of Debridement: Excisional debridement Anesthesia Used: 5% Lidocaine Gel Depth: in the subcutaneous layer Percentage of wound debrided: 100 Instrument Used: #15 blade Tissue Removed: fibrous, devitalized subcutaneous, biofilm, slough Severity: Fat Layer Exposed Amount of bleeding with debridement: Mild Bleeding Controlled with: Pressure Patient tolerated procedure well Assessment/Plan Active Problems (Last Reviewed 10/18/19 @ 11:24 by Linda Leon) Diabetic ulcer of left foot with muscle involvement without evidence of necrosis (Chronic) 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 capsular layer is in the wound bed Hammertoe of right foot (Chronic) Other specified peripheral vascular diseases (Chronic) Type 2 diabetes mellitus with diabetic polyneuropathy (Chronic) Hammertoe of left foot (Chronic) Assessment: Left foot ulcer with capsule/muscle tissue exposed, Rousseau grade 2, no infection. Healed right second toe ulcer. Left foot deformities including tailor bunion and hammertoe. Right hammertoes noted and prior hallux amputation. Peripheral vascular disease. Diabetes with polyneuropathy. Malnutrition. Delayed healing. Raynaud's disease Plan: I reviewed and discussed his case today. Subcutaneous excisional debridement was performed as noted in the clinical panel to left foot. The second toe ulcer site has healed and this is noted. I recommend he washes his daily with Hibiclens antimicrobial soap. A culture was obtained today; aerobic, anearobic, acid fast, fungus. If his wound moisture is better balanced next clemente k and he has reduction of devitalized tissue, advanced wound healing product application such as epi fix will be considered. An additional application of total contact cast also be considered. In the meantime, he was advised to change bilateral ulcer dressings daily with T3 MOTION Ag. He will resume offloading the left foot with a cam walker boot that he already has at home. I also urged him to use a walker. He relates he does not feel safe using crutches or knee roller. He was also provided with a surgical shoe and advised to heel weight-bear to the right foot due to his new ulcer on his toe. To continue proper glycemic control nutritional supplementation optimize healing. Is noted his last hemoglobin A1c we have on file here is 5.9%. This is a chronic ulceration has been present for approximately 10 months. I recommend application of advanced wound healing product. Prior authorization will be performed for epi-fix and this was obtained. This is medically necessary for limb salvage. He is at risk for further amputation and systemic deterioration secondary to this chronic ulcer. He was advised to follow-up with his vascular surgeon, Dr. Pena as scheduled. He had recent updated vascular studies performed and Dr. Pena is considering additional intervention. I recommend proceeding if there are options available. Due to the increased depth he did also go through a recent osteomyelitis work-up. Osteomyelitis signs were not apparent on the MRI and this will be monitored very closely. Compliance was discussed. The total contact cast will additionally secondarily address his mild edema to his leg. He mentioned that he is considering a finger surgery and also knee surgery. I recommend he also follow-up with those specialist to move forward with his treatment plans. He was reassured there are no local signs of infection on the foot today. I answered his questions. To return to the wound healing center in 1 week or call sooner if he has any questions or concerns.
[2019-11-07 17:41] LABS: M R Staph aureus DNA By PCR Negative (Negative); Probe Check PASS; Staph aureus DNA By PCR POSITIVE (Negative)
[2019-11-14 09:24] VITALS: BP 94/32; PULSE 83; RESP 16; TEMP 36.6; BMI 28.7
--- NOTE | 2019-11-14 13:04 | PCM.WC.PN ---
(1) Chronic ulcer of left foot with necrosis of muscle Status: Chronic Current Visit: Yes Code(s): L97.523 - Non-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ulcer of other part of left foot with necrosis of muscle Comment: no necrosis or infection is noted. capsular layer is in the wound bed (2) Diabetic ulcer of left foot with muscle involvement without evidence of necrosis Status: Chronic Current Visit: Yes Qualifiers: Diabetic foot ulcer location: midfoot Diabetes mellitus type: type 2 Qualified Code(s): E11.621 - Type 2 diabetes mellitus with foot ulcer; L97.425 - Non-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ulcer of left heel and midfoot with muscle involvement without evidence of necrosis Code(s): E11.621 - Type 2 diabetes mellitus with foot ulcer; L97.525 - Non-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ulcer of other part of left foot with muscle involvement without evidence of necrosis (3) Other specified peripheral vascular diseases Status: Chronic Current Visit: Yes Code(s): I73.89 - Other specified peripheral vascular diseases (4) Type 2 diabetes mellitus with diabetic polyneuropathy Status: Chronic Current Visit: Yes Qualifiers: Code(s): E11.42 - Type 2 diabetes mellitus with diabetic polyneuropathy (5) Hammertoe of left foot Status: Chronic Current Visit: Yes Code(s): M20.42 - Other hammer toe(s) (acquired), left foot (6) Non-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ulcer of other part of right foot with fat layer exposed Status: Resolved Current Visit: Yes Code(s): L97.512 - Non-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ulcer of other part of right foot with fat layer exposed (7) Hammertoe of right foot Status: Chronic Current Visit: Yes Code(s): M20.41 - Other hammer toe(s) (acquired), right foot (8) Colonization status Status: Acute Current Visit: Yes Code(s): Z22.9 - Carrier of infectious disease, unspecified Comment: Addressed with oral antibiotics Type of Wound Date of Service: 11/14/19 Chief Complaint: Left foot ulcer History of Wound: Mr. Espinoza is a 59-year-old with past medical history as stated above who is well-known to the wound center. He is able to offload better at this time. He also recently saw vascular surgery who did not recommend additional intervention at this time. He also had an MRI to rule out osteomyelitis due to the recent increase in ulcer depth which was negative. he denies fever, chill, nausea, vomiting, loss of appetite or pain to the foot. He relates the past week he has had a intermittent odor but is not there today. His foot still continues to get moist at times. Progress of Wound: Improving quality - Physical Exam Vital Signs Temp Pulse Resp BP 97.9 F 83 16 94/32 L 11/14/19 09:24 11/14/19 09:24 11/14/19 09:24 11/14/19 09:24 General: Alert, Oriented x3, Cooperative, No apparent distress HEENT: Atraumatic Extremities: No cyanosis, Capillary Refill Less than 3 Seconds, No Calf Tenderness, Diminished Peripheral Pulses, Edema Skin: Ulcer/ Wound - No purulence, erythema, streaking, odor, infection. Adjacent skin is atrophic Wound Measurements and Assessment WC - Nurse 1 - General Ulcer Measurement Start: 10/24/19 10:02 Freq: Status: Active Protocol: Activity Type Activity Date Activity User E-Sign Co-Sign Detail Recorded Client Recorded Date Recorded By Document 11/14/19 09:24 [id number] 11/14/19 09:28 11/14/19 09:24 Wound Center Nurse 1 [Ulcer Assessment] 11. L plantar -Combined with other wound No -Current Size (cm) - Length 2 -Current Size (cm) - Width 2.1 -Current Size (cm) - Depth 0.3 -Total Square Cm 4.2 -Photo Taken No -Epithelialization None Present -Tunneling No -Undermining/Tunneling No -Circular Undermining No -Exudate Amt None Present -Wound Margin Distinct, Outline Attached -Granulation Amt Large (67-100%) -Granulation Quality Pale,[place] -Slough/Fibrin Yes -Necrosis Amt None Present (0 %) -Necrotic Tissue Type Adherent Slough -Structure Exposed N/A -Texture ([place]-wound Skin Appearance) Assessed,Callus -Moisture ([place]-wound Skin Appearance No Abnormality, ) Assessed -Color ([place]-wound Skin Appearance) No Abnormality, Assessed -Temperature ([place]-wound Skin No Abnormality Appearance) (Pt Warm) -Tenderness on Palpation ([place]-wound No Skin Appearance) -Ulcer Cleansing Rinsed/ Irrigated with Saline -Foul Odor after Cleansing No -Anesthetic Used 4% Lidocaine Solution WC - Nurse 2 - General Ulcer CM Notes Start: 10/24/19 10:02 Freq: Status: Active Protocol: Activity Type Activity Date Activity User E-Sign Co-Sign Detail Recorded Client Recorded Date Recorded By Document 11/14/19 09:48 [id number] 11/14/19 09:49 11/14/19 09:48 Wound Center Nurse 2 [Procedure/Treatment] -Time 09:49 -Correct Patient Yes -Correct Side, Site, Position Yes -Correct Procedure Yes -Procedure Performed Yes -Type of Procedure Debridement -Clinical Debridement Subcutaneous -Post Debridement Size (cm) - Length 2.1 -Post Debridement Size (cm) - Width 2.1 -Post Debridement Size (cm) - Depth 0.3 -Total Square Cm 4.41 -Wound/Ulcer Outcome Not Healed -Ulcer Cleansing Rinsed/ Irrigated with Saline -Foul Odor after Cleansing No -Bioengineered Tissue Yes -Type of bioengineered Tissue EPIFIX -Expiration Date 07/17/24 -Product Lot Number [id number] -Percent Used 100 -Saline Lot Number [id number] -Bleeding Controlled with Pressure -Offloading Yes -Type of Offloading Camwalker -Treatment Response Procedure Tolerated Well [See Physician Procedure note for Specifics] Pain Scale: 0-10 Numeric [Pain] -Is Patient Pain Free? Yes Musculoskeletal: No Tenderness to Palpation of Joints or Extremities, Muscle Wasting Neurological: - - Lack of epicritic sensation light touch consistent with neuropathy status Psych/Mental Status: Normal Affect, Appropriate Debridement Note Post-Debridement Measurements/Treatment WC - Nurse 2 - General Ulcer CM Notes Start: 10/24/19 10:02 Freq: Status: Active Protocol: Activity Type Activity Date Activity User E-Sign Co-Sign Detail Recorded Client Recorded Date Recorded By Document 10/24/19 11:00 [id number] 10/24/19 11:01 Document 10/31/19 09:45 [id number] 10/31/19 09:52 Document 11/07/19 10:18 [id number] 11/07/19 10:23 Document 11/14/19 09:48 [id number] 11/14/19 09:49 10/24/19 10/31/19 11/07/19 11:00 09:45 10:18 Wound Center Nurse 2 12-right 2nd toe -Time 09:51 -Correct Patient Yes No -Correct Side, Site, Position Yes No -Correct Procedure Yes No -Procedure Performed Yes No -Type of Procedure Debridement -Clinical Debridement Subcutaneous -Post Debridement Size (cm) - Length 0.6 -Post Debridement Size (cm) - Width 0.3 -Post Debridement Size (cm) - Depth 0.1 -Total Square Cm 0.18 -Wound/Ulcer Outcome Not Healed Not Healed -Ulcer Cleansing Rinsed/ Irrigated with Saline -Foul Odor after Cleansing No -Bioengineered Tissue No -Bleeding Controlled with Pressure -Offloading Yes -Type of Offloading Surgical Shoe -Treatment Response Procedure Tolerated Well 11. L plantar -Time 11:01 09:45 10:21 -Correct Patient Yes Yes Yes -Correct Side, Site, Position Yes Yes Yes -Correct Procedure Yes Yes Yes -Procedure Performed Yes Yes Yes -Type of Procedure Debridement Debridement Debridement -Clinical Debridement Subcutaneous Subcutaneous Subcutaneous -Post Debridement Size (cm) - Length 1.8 1.8 2.2 -Post Debridement Size (cm) - Width 1.7 1.7 2.2 -Post Debridement Size (cm) - Depth 0.7 0.7 0.9 -Total Square Cm 3.06 3.06 4.84 -Wound/Ulcer Outcome Not Healed Not Healed Not Healed -Ulcer Cleansing Rinsed/ Rinsed/ Rinsed/ Irrigated with Irrigated with Irrigated with Saline Saline Saline -Foul Odor after Cleansing No No No -Bioengineered Tissue No No No -Type of bioengineered Tissue -Expiration Date -Product Lot Number -Percent Used -Saline Lot Number -Bleeding Controlled with Pressure Pressure Pressure -Offloading Yes Yes Yes -Type of Offloading Total Contact Surgical Shoe Camwalker Cast (TCC) -Treatment Response Procedure Procedure Procedure Tolerated Well Tolerated Well Tolerated Well Pain Scale: 0-10 Numeric Is Patient Pain Free? Yes Yes Yes 11/14/19 09:48 Wound Center Nurse 2 12-right 2nd toe -Time -Correct Patient -Correct Side, Site, Position -Correct Procedure -Procedure Performed -Type of Procedure -Clinical Debridement -Post Debridement Size (cm) - Length -Post Debridement Size (cm) - Width -Post Debridement Size (cm) - Depth -Total Square Cm -Wound/Ulcer Outcome -Ulcer Cleansing -Foul Odor after Cleansing -Bioengineered Tissue -Bleeding Controlled with -Offloading -Type of Offloading -Treatment Response 11. L plantar -Time 09:49 -Correct Patient Yes -Correct Side, Site, Position Yes -Correct Procedure Yes -Procedure Performed Yes -Type of Procedure Debridement -Clinical Debridement Subcutaneous -Post Debridement Size (cm) - Length 2.1 -Post Debridement Size (cm) - Width 2.1 -Post Debridement Size (cm) - Depth 0.3 -Total Square Cm 4.41 -Wound/Ulcer Outcome Not Healed -Ulcer Cleansing Rinsed/ Irrigated with Saline -Foul Odor after Cleansing No -Bioengineered Tissue Yes -Type of bioengineered Tissue EPIFIX -Expiration Date 07/17/24 -Product Lot Number [id number] -Percent Used 100 -Saline Lot Number [id number] -Bleeding Controlled with Pressure -Offloading Yes -Type of Offloading Camwalker -Treatment Response Procedure Tolerated Well Pain Scale: 0-10 Numeric Is Patient Pain Free? Yes Wound debrided: sub 5th metatarsal head Laterality: Left Wound Grade/Stage: grade 3 Type of Debridement: Excisional debridement Anesthesia Used: 5% Lidocaine Gel Depth: in the subcutaneous layer Percentage of wound debrided: 100 Instrument Used: #15 blade Tissue Removed: fibrous, devitalized subcutaneous, biofilm, slough Severity: Fat Layer Exposed Amount of bleeding with debridement: Mild Bleeding Controlled with: Pressure Patient tolerated procedure well Assessment/Plan Active Problems (Last Reviewed 10/18/19 @ 11:24 by Linda Leon) Diabetic ulcer of left foot with muscle involvement without evidence of necrosis (Chronic) 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 capsular layer is in the wound bed Hammertoe of right foot (Chronic) Colonization status (Acute) Addressed with oral antibiotics Other specified peripheral vascular diseases (Chronic) Type 2 diabetes mellitus with diabetic polyneuropathy (Chronic) Hammertoe of left foot (Chronic) Assessment: Left foot ulcer with capsule/muscle tissue exposed, Rousseau grade 2, no infection. Healed right second toe ulcer. Left foot deformities including tailor bunion and hammertoe. Right hammertoes noted and prior hallux amputation. Peripheral vascular disease. Diabetes with polyneuropathy. Malnutrition. Delayed healing. Raynaud's disease Plan: I reviewed and discussed his case today. Subcutaneous excisional debridement was performed as noted in the clinical panel to left foot. The second toe ulcer site has remained healed and this is noted. He is completed oral antibiotics including Augmentin and ciprofloxacin based off of his prior culture results and appears to be doing better. I recommend application of advanced wound healing product this week, epi-fix. This was applied according to standard protocol 100% of the product was performed. This is medically necessary for limb salvage. He understands the indications, planned application, anticipated healing time and management. He was advised to keep the dressing clean and intact until follow-up next week. I recommend he change the secondary dressing to keep his maceration and tissue moisture to a minimum. An additional application of total contact cast also be considered next week if the maceration is not present. He will resume offloading the left foot with a cam walker boot that he already has at home. I also urged him to use a walker. He relates he does not feel safe using crutches or knee roller. He was also provided with a surgical shoe and advised to heel weight-bear to the right foot due to his new ulcer on his toe. To continue proper glycemic control nutritional supplementation optimize healing. Is noted his last hemoglobin A1c we have on file here is 5.9%. This is a chronic ulceration has been present for approximately 10 months. I recommend application of advanced wound healing product. Prior authorization will be performed for epi-fix and this was obtained. This is medically necessary for limb salvage. He is at risk for further amputation and systemic deterioration secondary to this chronic ulcer. He was advised to follow-up with his vascular surgeon, Dr. Pena as scheduled. He had recent updated vascular studies performed and Dr. Pena is considering additional intervention. I recommend proceeding if there are options available. Due to the increased depth he did also go through a recent osteomyelitis work-up. Osteomyelitis signs were not apparent on the MRI and this will be monitored very closely. Compliance was discussed. The total contact cast will additionally secondarily address his mild edema to his leg. He mentioned that he is considering a finger surgery and also knee surgery. I recommend he also follow-up with those specialist to move forward with his treatment plans. He was reassured there are no local signs of infection on the foot today. I answered his questions. He had prior capsule muscle tissue exposed and that further was infected per his culture results which would qualify and is awaiting grade 3. Hyperbaric oxygen therapy is an option for him and this will be discussed. to return to the wound healing center in 1 week or call sooner if he has any questions or concerns.
== END 2019-11-16 23:59 ==
LOC: WC 09:15
PROVIDERS: Family Provider Student in an Organized Health Care Education/Training Program; PCP Student in an Organized Health Care Education/Training Program; Referring Provider Podiatrist; Visit Provider Podiatrist
DX: E11.621 Type 2 diabetes mellitus with foot ulcer (principal); E11.42 Type 2 diabetes mellitus with diabetic polyneuropathy; M20.42 Other hammer toe(s) (acquired), left foot; L97.522 Non-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ulcer of other part of left foot with fat layer exposed; I73.00 Raynaud's syndrome without gangrene; L97.523 Non-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ulcer of other part of left foot with necrosis of muscle; M20.41 Other hammer toe(s) (acquired), right foot; L97.512 Non-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ulcer of other part of right foot with fat layer exposed; E11.51 Type 2 diabetes mellitus with diabetic peripheral angiopathy without gangrene
CPT/HCPCS: 11042; 11043; 15275; 29445; 87070; 87075; 87077; 87186; 87205; 87640; 99212; Q4186; G0463

== ENCOUNTER 2019-12-12 10:45 | Outpatient (RCR) | payer MEDICAID, SELFPAY ==
[2019-11-17 01:06] VITALS: BP 94/32; PULSE 83; RESP 16; TEMP 36.6
[2019-11-21 09:31] VITALS: BMI 28.7
--- NOTE | 2019-11-21 11:23 | PN.PCM_ITS ---
(1) Chronic ulcer of left foot with necrosis of muscle Status: Chronic Current Visit: Yes Code(s): L97.523 - Non-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ulcer of other part of left foot with necrosis of muscle Comment: no necrosis or infection is noted. capsular layer is in the wound bed (2) Delayed wound healing Status: Chronic Current Visit: Yes Code(s): T14.8XXD - Other injury of unspecified body region, subsequent encounter (3) Malnutrition Status: Chronic Current Visit: Yes Code(s): E46 - Unspecified protein- calorie malnutrition (4) Peripheral vascular disease Status: Chronic Current Visit: Yes Code(s): I73.9 - Peripheral vascular disease, unspecified (5) Colonization status Status: Resolved Current Visit: Yes Code(s): Z22.9 - Carrier of infectious disease, unspecified Comment: Addressed with oral antibiotics (6) Hammertoe of left foot Status: Chronic Current Visit: Yes Code(s): M20.42 - Other hammer toe(s) (acquired), left foot (7) Diabetes mellitus type 2 with complications Status: Chronic Current Visit: Yes Code(s): E11.8 - Type 2 diabetes mellitus with unspecified complications Type of Wound Date of Service: 11/21/19 Chief Complaint: Left foot ulcer History of Wound: Mr. Espinoza is a 59-year-old with past medical history as stated above who is well-known to the wound center. He is able to offload better at this time. He also recently saw vascular surgery who did not recommend additional intervention at this time. He also had an MRI to rule out osteomyelitis due to the recent increase in ulcer depth which was negative. he denies fever, chill, nausea, vomiting, loss of appetite or pain to the foot. He had a deteriorating station of the ulcer with bacterial colonization and this was now progressed to a Rousseau grade 3. He is taking his oral antibiotics as advised and will complete the series tomorrow. Progress of Wound: Stable - Physical Exam Vital Signs Temp Pulse Resp BP 97.9 F 83 16 94/32 L 11/17/19 01:06 11/17/19 01:06 11/17/19 01:06 11/17/19 01:06 General: Alert, Oriented x3, Cooperative, No apparent distress HEENT: Atraumatic Extremities: No cyanosis, Capillary Refill Less than 3 Seconds, No Calf Tenderness, Diminished Peripheral Pulses, Edema - Scant Skin: Ulcer/ Wound - No purulence, erythema, streaking, odor, infection. The ulcer bed is pale granular and there is reduced fibrous tissue. There is no visualized capsule today as it was a couple of weeks ago. There is no probe to bone. There is peripheral callus is not macerated today Wound Measurements and Assessment WC - Nurse 1 - General Ulcer Measurement Start: 11/21/19 09:31 Freq: Status: Active Protocol: Activity Type Activity Date Activity User E-Sign Co-Sign Detail Recorded Client Recorded Date Recorded By Document 11/21/19 09:31 DV [id number] 11/21/19 09:37 DV 11/21/19 09:31 Wound Center Nurse 1 [Ulcer Assessment] 11. L plantar -Combined with other wound No -Current Size (cm) - Length 1.5 -Current Size (cm) - Width 1.7 -Current Size (cm) - Depth 0.7 -Total Square Cm 2.55 -Date of Last Picture (Recall this 11/21/19 field) -Photo Taken Yes -Epithelialization None Present -Tunneling No -Undermining/Tunneling No -Circular Undermining No -Classification - Thickness Full Thickness without Exposed Support Structure -Wound Margin Flat & Intact -Granulation Amt None Present (0 %) -Granulation Quality N/A -Slough/Fibrin Yes -Necrosis Amt Large (67-100%) -Necrotic Tissue Type Adherent Slough -Structure Exposed None/Limited to Skin Breakdown -Texture (Mechelle-wound Skin Appearance) Assessed,Callus -Moisture (Mechelle-wound Skin Appearance Assessed, ) Maceration -Color (Mechelle-wound Skin Appearance) No Abnormality, Assessed -Temperature (Mechelle-wound Skin No Abnormality Appearance) (Pt Warm) -Tenderness on Palpation (Mechelle-wound No Skin Appearance) -Ulcer Cleansing Rinsed/ Irrigated with Saline -Foul Odor after Cleansing No -Anesthetic Used 4% Lidocaine Solution WC - Nurse 2 - General Ulcer CM Notes Start: 11/21/19 09:31 Freq: Status: Active Protocol: Activity Type Activity Date Activity User E-Sign Co-Sign Detail Recorded Client Recorded Date Recorded By Document 11/21/19 09:52 JF [id number] 11/21/19 09:56 JF 11/21/19 09:52 Wound Center Nurse 2 [Procedure/Treatment] 12-right 2nd toe -Time 09:53 -Correct Patient No -Correct Side, Site, Position No -Correct Procedure No -Procedure Performed No -Post Debridement Size (cm) - Length 0 -Post Debridement Size (cm) - Width 0 -Post Debridement Size (cm) - Depth 0 -Total Square Cm 0 -Wound/Ulcer Outcome Healed- Epithelialized 11. L plantar -Time 09:54 -Correct Patient Yes -Correct Side, Site, Position Yes -Correct Procedure Yes -Procedure Performed Yes -Type of Procedure Debridement -Clinical Debridement Subcutaneous -Post Debridement Size (cm) - Length 1.6 -Post Debridement Size (cm) - Width 1.8 -Post Debridement Size (cm) - Depth 0.5 -Total Square Cm 2.88 -Wound/Ulcer Outcome Not Healed -Ulcer Cleansing Rinsed/ Irrigated with Saline -Foul Odor after Cleansing No -Bioengineered Tissue Yes -Type of bioengineered Tissue EPIFIX -Expiration Date 07/17/24 -Product Lot Number [id number] -Percent Used 100 -Saline Lot Number [id number] -Bleeding Controlled with Pressure -Offloading Yes -Type of Offloading Total Contact Cast (TCC) -Treatment Response Procedure Tolerated Well [See Physician Procedure note for Specifics] Pain Scale: 0-10 Numeric [Pain] -Is Patient Pain Free? Yes Musculoskeletal: No Tenderness to Palpation of Joints or Extremities, Muscle Wasting, - - Dorsal contraction of lesser digits and prominent metatarsal head Neurological: - - Lack of epicritic sensation light touch is consistent with neuropathy status Psych/Mental Status: Normal Affect, Appropriate Debridement Note Post-Debridement Measurements/Treatment WC - Nurse 2 - General Ulcer CM Notes Start: 11/21/19 09:31 Freq: Status: Active Protocol: Activity Type Activity Date Activity User E-Sign Co-Sign Detail Recorded Client Recorded Date Recorded By Document 11/21/19 09:52 JF [id number] 11/21/19 09:56 MARJORIE 11/21/19 09:52 Wound Center Nurse 2 12-right 2nd toe -Time 09:53 -Correct Patient No -Correct Side, Site, Position No -Correct Procedure No -Procedure Performed No -Post Debridement Size (cm) - Length 0 -Post Debridement Size (cm) - Width 0 -Post Debridement Size (cm) - Depth 0 -Total Square Cm 0 -Wound/Ulcer Outcome Healed- Epithelialized 11. L plantar -Time 09:54 -Correct Patient Yes -Correct Side, Site, Position Yes -Correct Procedure Yes -Procedure Performed Yes -Type of Procedure Debridement -Clinical Debridement Subcutaneous -Post Debridement Size (cm) - Length 1.6 -Post Debridement Size (cm) - Width 1.8 -Post Debridement Size (cm) - Depth 0.5 -Total Square Cm 2.88 -Wound/Ulcer Outcome Not Healed -Ulcer Cleansing Rinsed/ Irrigated with Saline -Foul Odor after Cleansing No -Bioengineered Tissue Yes -Type of bioengineered Tissue EPIFIX -Expiration Date 07/17/24 -Product Lot Number [id number] -Percent Used 100 -Saline Lot Number [id number] -Bleeding Controlled with Pressure -Offloading Yes -Type of Offloading Total Contact Cast (TCC) -Treatment Response Procedure Tolerated Well Pain Scale: 0-10 Numeric Is Patient Pain Free? Yes Wound debrided: sub lateral metatarsal head Laterality: Left Wound Grade/Stage: grade 3 Type of Debridement: Excisional debridement Anesthesia Used: 5% Lidocaine Gel Depth: in the subcutaneous layer Percentage of wound debrided: 100 Instrument Used: #15 blade Tissue Removed: fibrous, devitalized subcutaneous, biofilm, slough Severity: Fat Layer Exposed Amount of bleeding with debridement: Mild Bleeding Controlled with: Pressure Patient tolerated procedure well Assessment/Plan Active Problems (Last Reviewed 10/18/19 @ 11:24 by Linda Leon) 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 capsular layer is in the wound bed Delayed wound healing (Chronic) Malnutrition (Chronic) Peripheral vascular disease (Chronic) Hammertoe of left foot (Chronic) Diabetes mellitus type 2 with complications (Chronic) Assessment: Left foot ulcer with capsule/muscle tissue exposed, Rousseau grade 3 treated for infection/bacterial colonization. Healed right third toe ulcer. Left foot deformities including tailor bunion and hammertoe. Right hammertoes noted and prior hallux amputation. Peripheral vascular disease. Diabetes with polyneuropathy. Malnutrition. Delayed healing. Raynaud's disease Plan: I reviewed and discussed his case today. Subcutaneous excisional debridement was performed as noted in the clinical panel to left foot. The third toe ulcer site has remained healed and this is noted. He is completed oral antibiotics including Augmentin and ciprofloxacin based off of his prior culture results and appears to be doing better. I recommend application of advanced wound healing product this week, epi-fix. This was applied according to standard protocol 100% of the product was performed. This is medically necessary for limb salvage. He understands the indications, planned application, anticipated healing time and management. He was advised to keep the dressing clean and intact until follow-up next week. His maceration is r esolved and his moisture is well controlled. I do recommend application of a total contact cast. Verbal consent was obtained and this was applied in a neutral well-padded rectus position. He tolerated this well. He will also keep this clean and intact until follow-up next week. To continue proper glycemic control nutritional supplementation optimize healing. Is noted his last hemoglobin A1c we have on file here is 5.9%. This is a chronic ulceration has been present for approximately 10 months. I recommend application of advanced wound healing product. He was advised to follow-up with his vascular surgeon, Dr. Pena as scheduled. He had recent updated vascular studies performed and Dr. Pena is considering additional intervention. I recommend proceeding if there are options available. Due to the increased depth he did also go through a recent osteomyelitis work-up. Osteomyelitis signs were not apparent on the MRI and this will be monitored very closely. Compliance was discussed. He was reassured there are no local signs of infection on the foot today. I answered his questions. He had prior capsule muscle tissue exposed and that further was infected per his culture results which would qualify and is awaiting grade 3. Hyperbaric oxygen therapy is an option for him and this will be discussed. This was discussed today. He is familiar with the process because his father went to hyperbaric therapy. His recent echocardiogram is noted from August 2019 in which she had an ejection fraction of 56%. He also has updated lab work which was reviewed from August 2019. A chest x-ray was ordered at this time for pre-hyperbaric safety screening. He also understands he will need to proceed with a clearance and we will help him get this set up. The indication, eveline efits, risk, complications, anticipated management were reviewed with him today. I answered his questions. He denies being claustrophobic. To return to the wound healing center in 1 week or call sooner if he has any questions or concerns.
--- NOTE | 2019-11-21 12:13 | RAD_ITS ---
STUDY: X-RAY CHEST REASON FOR EXAM: Male, 59 years old. HYPERBARIC O2 THERAPY CLEARANCE. C/O LT SIDE RIB PAIN TECHNIQUE: PA and lateral views of the chest. COMPARISON: 10/18/2018. FINDINGS: Median sternotomy wires. Cardiac silhouette unremarkable. Pulmonary vascularity unremarkable. Aorta unremarkable. No focal airspace opacities. No pleural effusions. Upper abdomen unremarkable. Reidentified nondisplaced fracture of the distal/anterior aspect of the left 10th rib. No pneumothorax. RAD/Chest PA and Lateral IMPRESSION: Possible nondisplaced fracture of the distal/anterior aspect of the left 10th rib. No acute cardiopulmonary findings Electronically Signed: Adams Slater, at 21:52 EST Tel , Service support ,
--- NOTE | 2019-11-28 09:48 | PCM.CONHBO ---
(1) Chronic ulcer of left foot with necrosis of muscle Status: Chronic Current Visit: Yes Code(s): L97.523 - Non-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ulcer of other part of left foot with necrosis of muscle Comment: no necrosis or infection is noted. capsular layer is in the wound bed (2) Diabetes mellitus type 2 with complications Status: Chronic Current Visit: Yes Code(s): E11.8 - Type 2 diabetes mellitus with unspecified complications (3) Peripheral vascular disease Status: Chronic Current Visit: Yes Code(s): I73.9 - Peripheral vascular disease, unspecified (4) Diabetic ulcer of left foot with muscle involvement without evidence of necrosis Status: Chronic Current Visit: Yes Qualifiers: Diabetic foot ulcer location: midfoot Diabetes mellitus type: type 2 Qualified Code(s): E11.621 - Type 2 diabetes mellitus with foot ulcer; L97.425 - Non-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ulcer of left heel and midfoot with muscle involvement without evidence of necrosis Code(s): E11.621 - Type 2 diabetes mellitus with foot ulcer; L97.525 - Non-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ulcer of other part of left foot with muscle involvement without evidence of necrosis (5) Type 2 diabetes mellitus with diabetic polyneuropathy Status: Chronic Current Visit: Yes Qualifiers: Code(s): E11.42 - Type 2 diabetes mellitus with diabetic polyneuropathy History of Present Illness Date of Service: 11/28/19 Presenting Chief Complaint: Left foot ulcer The patient is a 59 year old M who presents to the [facility] to evaluate the possibility of initiating hyperbaric oxygen therapy for treatment of left plantar Adri grade 3 DFU. Patient has history of heart disease diabetes type 2 but insulin-dependent. Patient has had chest x-ray EKG all seem to be within normal limits and stress test done also he has hemoglobin A1c has been well controlled since August at 6.1 his last blood sugar this morning was 116. [] Patient will start at hyper [facility] oxygen protocol 2 rasheed VINNY for 90 minutes without air breaks 1 treatment per day Tuesday through Tuesday for 40 total treatments. 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 Zhu of [facility] Essential (primary) hypertension (Chronic) Other specified peripheral vascular diseases (Chronic) Skin ulcer of finger with fat layer exposed (Chronic) Right Index Finger 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) Allergies/Adverse Reactions: Allergies atorvastatin Adverse Reaction (Verified 08/23/19 12:36) Unknown metformin Adverse Reaction (Verified 08/23/19 12:36) Diarrhea Home Medications: Ambulatory Orders Medication Instructions Recorded Ammonium Lactate [Amlactin] 57 gm TP PRN PRN 10/04/17 Celecoxib [Celebrex] 200 mg PO DAILY 10/04/17 Cholecalciferol (Vitamin D3) 5,000 unit PO DAILY 10/04/17 [Vitamin D3] Levomefolate/B6/B12/Algal Oil 1 ea PO DAILY 10/04/17 [Metanx Capsule] Nortriptyline HCl 50 mg PO QHS 10/04/17 Biotin 1 mg PO DAILY 04/01/18 Desonide 0.05% [Desowen 0.05% 1 applic TOPICAL BID 04/01/18 Cream] Diflorasone Diacetate [Psorcon] 1 applicatio TP BID PRN 04/01/18 Insulin Glargine,Hum.rec.anlog 20 unit SQ QHS 04/01/18 [Basaglar Kwikpen U-100] Insulin Lispro [Humalog KwikPen] See Protocol SQ TIDCM 04/01/18 Ketoconazole [Nizoral] 1 applic TOPICAL DAILY PRN 04/01/18 Magnesium 250 mg PO DAILY 04/01/18 metoprolol tartrate 25 mg tablet 12.5 mg PO BID tab MDD 1.5 tabs 07/19/18 lisinopril 5 mg tablet 5 mg PO QDAY #30 tab 03/19/19 albuterol sulfate 90 mcg/actuation 2 puff INHALATION Q4H PRN g 08/13/19 aerosol inhaler amlodipine 10 mg tablet 10 mg PO DAILY 08/13/19 becaplermin 0.01 % topical gel 1 applic TOPICAL DAILY 08/13/19 cetirizine 10 mg tablet 10 mg PO DAILY 08/13/19 gabapentin 300 mg capsule 900 mg PO TID cap 08/13/19 nifedipine 30 mg tablet,extended 30 mg PO DAILY 08/13/19 release simvastatin 10 mg tablet 10 mg PO QHS 08/13/19 vardenafil 20 mg tablet 20 mg PO DAILY PRN 08/13/19 Cyanocobalamin [Vitamin B12] 1,000 mcg IM Q30D 08/22/19 aspirin 81 mg tablet,delayed 162 mg PO DAILY tab MDD . 10/12/19 release baclofen 20 mg tablet 30 mg PO TID tab 10/12/19 cephalexin 500 mg capsule 500 mg PO Q6H cap 10/12/19 famotidine 20 mg tablet 20 mg PO DAILY PRN 10/12/19 furosemide 20 mg tablet 20 mg PO BID PRN tab 10/12/19 Maternal Family History: Family History (Last Reviewed 10/18/19 @ 11:24 by Linda Leon) Other Arthritis Hypertension Family History: Diabetes Paternal Family History: Family History (Last Reviewed 10/18/19 @ 11:24 by Linda Leon) Other Arthritis Hypertension Family History: Diabetes Smoking Status: Former smoker Review of Systems Constitutional: Denies: Chills, Fever Eyes: Denies: Blurred vision, Drainage, Pain HEENT: Denies: Difficulty Hearing, Difficulty Swallowing, Sore Throat, Visual Changes Cardiovascular: Denies: Chest Pain, Palpitations, Syncope Respiratory: Denies: Cough, Shortness of Breath Gastrointestinal: Denies: Abdominal Pain, Nausea, Vomiting Genitourinary: Denies: Dysuria, Frequency Musculoskeletal: Denies: Joint Pain, Muscle pain Skin: Reports: - - Left foot ulcer. Denies: Jaundice, Rash Neurological: Denies: Balance problems, Change in Speech, Difficulty swallowing, Focal weakness Psychiatric: Denies: Anxiety, Depression Endocrine: Denies: Change in Body Habitus Hematologic/ Lymphatic: Denies: Adenopathy - Physical Exam Vital Signs Temp Pulse Resp BP 97.9 F 83 16 94/32 L 11/17/19 01:06 11/17/19 01:06 11/17/19 01:06 11/17/19 01:06 General: Oriented x3, Cooperative, Well developed HEENT: Atraumatic, PERRLA Oral: Moist Mucosa Neck: Supple, No JVD Lungs: Clear to auscultation, Normal air movement Cardiovascular: Regular rate, Regular Rhythm Abdomen: Bowel Sounds Present, Soft, Non Tender, No Hepato-splenomegaly Extremities: No clubbing, No edema Skin: Ulcer/ Wound - Left foot ulcer Wound Measurements and Assessment WC - Nurse 2 - General Ulcer CM Notes Start: 11/21/19 09:31 Freq: Status: Active Protocol: Activity Type Activity Date Activity User E-Sign Co-Sign Detail Recorded Client Recorded Date Recorded By Document 11/28/19 09:31 MW [id number] 11/28/19 09:34 MW 11/28/19 09:31 Pain Scale: 0-10 Numeric [Pain] -Is Patient Pain Free? Yes Musculoskeletal: No Tenderness to Palpation of Joints or Extremities Lymphatic: No Cervical, Supraclavicular, or Inguinal Adenopathy Neurological: Cranial nerves II-XII grossly intact, Neuro grossly intact Psych/Mental Status: Normal Affect, Appropriate Assessment/Plan Active Problems (Last Reviewed 10/18/19 @ 11:24 by Linda Leon) Diabetic ulcer of left foot with muscle involvement without evidence of necrosis (Chronic) 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 capsular layer is in the wound bed Delayed wound healing (Chronic) Malnutrition (Chronic) Peripheral vascular disease (Chronic) Type 2 diabetes mellitus with diabetic polyneuropathy (Chronic) Hammertoe of left foot (Chronic) Diabetes mellitus type 2 with complications (Chronic) RICK GEORGE is an appropriate candidate for hyperbaric oxygen therapy. Hyperbaric Oxygen Therapy would be an essential adjunct in the resolution and treatment of this patient's presenting problem. This patient has sufficient physiologic and psychological stamina to undergo the rigors of hyperbaric oxygen therapy. As such, I recommend the following: Hyperbaric Oxygen Treatments at 2.0 VINNY in 100% Oxygen for 90 minutes per treatment, for [] treatments. I have discussed the possible benefits of hyperbaric oxygen therapy with this patient. I have also presented and described the risks, including: air gas embolism, pneumothorax, central nervous system and pulmonary oxygen toxicity, flash pulmonary edema, hypoglycemia, reversible visual refractive changes, ear and sinus robin-trauma, and confinement anxiety. The patient has verbalized understanding of these risks, and is still wanting to undergo hyperbaric oxygen therapy. The patient understands the significant time and transportation commitment involved in daily treatments of up to two hours duration and has stated that they are willing to commit to this therapy. Adri 3 DFU left foot plantar Clinical Impression(s) from Imaging Studies Chest X-Ray 11/21/19 12:13 IMPRESSION: Possible nondisplaced fracture of the distal/anterior aspect of the left 10th rib. No acute cardiopulmonary findings Electronically Signed: Adams Slaetr, at 21:52 EST Tel , Service support , Adri 3 DFU left foot ulcer
[2019-11-28 09:52] VITALS: BP 130/74; PULSE 78; RESP 18; TEMP 36.8; BMI 28.7
--- NOTE | 2019-11-28 11:45 | PCM.WC.PN ---
(1) Chronic ulcer of left foot with necrosis of muscle Status: Chronic Current Visit: Yes Code(s): L97.523 - Non-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ulcer of other part of left foot with necrosis of muscle Comment: no necrosis or infection is noted. capsular layer is in the wound bed (2) Delayed wound healing Status: Chronic Current Visit: Yes Code(s): T14.8XXD - Other injury of unspecified body region, subsequent encounter (3) Malnutrition Status: Chronic Current Visit: Yes Code(s): E46 - Unspecified protein-calorie malnutrition (4) Peripheral vascular disease Status: Chronic Current Visit: Yes Code(s): I73.9 - Peripheral vascular disease, unspecified (5) Colonization status Status: Resolved Current Visit: Yes Code(s): Z22.9 - Carrier of infectious disease, unspecified Comment: Addressed with oral antibiotics (6) Hammertoe of left foot Status: Chronic Current Visit: Yes Code(s): M20.42 - Other hammer toe(s) (acquired), left foot (7) Diabetes mellitus type 2 with complications Status: Chronic Current Visit: Yes Code(s): E11.8 - Type 2 diabetes mellitus with unspecified complications (8) Type 2 diabetes mellitus with diabetic polyneuropathy Status: Chronic Current Visit: Yes Code(s): E11.42 - Type 2 diabetes mellitus with diabetic polyneuropathy Type of Wound Date of Service: 11/28/19 Chief Complaint: Left foot ulcer History of Wound: Mr. Espinoza is a 59-year-old with past medical history as stated above who is well-known to the wound center. He is able to offload better at this time. He also recently saw vascular surgery who did not recommend additional intervention at this time. He also had an MRI to rule out osteomyelitis due to the recent increase in ulcer depth which was negative. he denies fever, chill, nausea, vomiting, loss of appetite or pain to the foot. He had a deteriorating station of the ulcer with bacterial colonization and this was now progressed to a Rousseau grade 3. He completed a course of antibiotics as advised. He is scheduled to have a history and physical hyperbaric oxygen therapy clearance evaluation with nurse practitioner, Rivka Duarte, this morning. He is amendable to proceed. Progress of Wound: Stable - Physical Exam Vital Signs Temp Pulse Resp BP 98.2 F 78 18 130/74 H 11/28/19 09:52 11/28/19 09:52 11/28/19 09:52 11/28/19 09:52 General: Alert, Oriented x3, Cooperative, No apparent distress Extremities: No cyanosis, Capillary Refill Less than 3 Seconds, No Calf Tenderness, Diminished Peripheral Pulses, Edema Skin: Ulcer/ Wound - No purulence, erythema, streaking, odor. There is granular base with approximately 70% fibrous base that was removed upon debridement. There is reduced depth of the ulcer site. There is no adjacent bogginess or fluctuance. His adjacent skin is hairless and atrophic Wound Measurements and Assessment WC - Nurse 1 - General Ulcer Measurement Start: 11/21/19 09:31 Freq: Status: Active Protocol: Activity Type Activity Date Activity User E-Sign Co-Sign Detail Recorded Client Recorded Date Recorded By Document 11/28/19 09:52 DL [id number] 11/28/19 10:08 DL 11/28/19 09:52 Wound Center Nurse 1 [Ulcer Assessment] 11. L plantar -Current Size (cm) - Length 2 -Current Size (cm) - Width 1.8 -Current Size (cm) - Depth 0.5 -Total Square Cm 3.6 -Photo Taken No -Exudate Amt Medium -Exudate Type Serosanguineous -Wound Margin Distinct, Outline Attached -Granulation Amt Small (1-33%) -Granulation Quality [place] -Necrosis Amt Large (67-100%) -Necrotic Tissue Type Adherent Slough -Structure Exposed N/A -Texture ([place]-wound Skin Appearance) Callus -Moisture ([place]-wound Skin Appearance Maceration ) -Color ([place]-wound Skin Appearance) No Abnormality -Temperature ([place]-wound Skin No Abnormality Appearance) (Pt Warm) -Tenderness on Palpation ([place]-wound No Skin Appearance) -Ulcer Cleansing Wound Cleanser -Anesthetic Used 4% Lidocaine Solution WC - Nurse 2 - General Ulcer CM Notes Start: 11/21/19 09:31 Freq: Status: Active Protocol: Activity Type Activity Date Activity User E-Sign Co-Sign Detail Recorded Client Recorded Date Recorded By Document 11/28/19 09:31 MW [id number] 11/28/19 09:34 MW Document 11/28/19 10:11 JF [id number] 11/28/19 10:19 JF 11/28/19 11/28/19 09:31 10:11 Wound Center Nurse 2 [Procedure/Treatment] 11. L plantar -Time 10:11 -Correct Patient Yes -Correct Side, Site, Position Yes -Correct Procedure Yes -Procedure Performed Yes -Type of Procedure Debridement -Clinical Debridement Subcutaneous -Post Debridement Size (cm) - Length 2.1 -Post Debridement Size (cm) - Width 1.8 -Post Debridement Size (cm) - Depth 0.4 -Total Square Cm 3.78 -Wound/Ulcer Outcome Not Healed -Ulcer Cleansing Rinsed/ Irrigated with Saline -Foul Odor after Cleansing No -Bioengineered Tissue Yes -Type of bioengineered Tissue EPIFIX -Expiration Date 07/17/24 -Product Lot Number [id number] -Percent Used 100 -Saline Lot Number [id number] -Bleeding Controlled with Pressure -Offloading Yes -Type of Offloading Camwalker -Treatment Response Procedure Tolerated Well [See Physician Procedure note for Specifics] Pain Scale: 0-10 Numeric [Pain] -Is Patient Pain Free? Yes Yes Musculoskeletal: No Tenderness to Palpation of Joints or Extremities, Muscle Wasting Neurological: - - Lack of normal epicritic sensation light touch consistent with neuropathy status Psych/Mental Status: Normal Affect, Appropriate Debridement Note Post-Debridement Measurements/Treatment WC - Nurse 2 - General Ulcer CM Notes Start: 11/21/19 09:31 Freq: Status: Active Protocol: Activity Type Activity Date Activity User E-Sign Co-Sign Detail Recorded Client Recorded Date Recorded By Document 11/21/19 09:52 JF [id number] 11/21/19 09:56 JF Document 11/28/19 09:31 MW [id number] 11/28/19 09:34 MW Document 11/28/19 10:11 JF [id number] 11/28/19 10:19 JF 11/21/19 11/28/19 11/28/19 09:52 09:31 10:11 Wound Center Nurse 2 12-right 2nd toe -Time 09:53 -Correct Patient No -Correct Side, Site, Position No -Correct Procedure No -Procedure Performed No -Post Debridement Size (cm) - Length 0 -Post Debridement Size (cm) - Width 0 -Post Debridement Size (cm) - Depth 0 -Total Square Cm 0 -Wound/Ulcer Outcome Healed- Epithelialized 11. L plantar -Time 09:54 10:11 -Correct Patient Yes Yes -Correct Side, Site, Position Yes Yes -Correct Procedure Yes Yes -Procedure Performed Yes Yes -Type of Procedure Debridement Debridement -Clinical Debridement Subcutaneous Subcutaneous -Post Debridement Size (cm) - Length 1.6 2.1 -Post Debridement Size (cm) - Width 1.8 1.8 -Post Debridement Size (cm) - Depth 0.5 0.4 -Total Square Cm 2.88 3.78 -Wound/Ulcer Outcome Not Healed Not Healed -Ulcer Cleansing Rinsed/ Rinsed/ Irrigated with Irrigated with Saline Saline -Foul Odor after Cleansing No No -Bioengineered Tissue Yes Yes -Type of bioengineered Tissue EPIFIX EPIFIX -Expiration Date 07/17/24 07/17/24 -Product Lot Number [id number] -Percent Used 100 100 -Saline Lot Number [id number] -Bleeding Controlled with Pressure Pressure -Offloading Yes Yes -Type of Offloading Total Contact Camwalker Cast (TCC) -Treatment Response Procedure Procedure Tolerated Well Tolerated Well Pain Scale: 0-10 Numeric Is Patient Pain Free? Yes Yes Yes Wound debrided: plantar lateral forefoot Laterality: Left Wound Grade/Stage: grade 3 Type of Debridement: Excisional debridement Anesthesia Used: 5% Lidocaine Gel Depth: in the subcutaneous layer Percentage of wound debrided: 100 Instrument Used: #15 blade Tissue Removed: Fibrous, devitalized subcutaneous, biofilm, slough Severity: Fat Layer Exposed Amount of bleeding with debridement: Mild Bleeding Controlled with: Pressure Patient tolerated procedure well Assessment/Plan Clinical Impression(s) from Imaging Studies Chest X-Ray 11/21/19 12:13 IMPRESSION: Possible nondisplaced fracture of the distal/anterior aspect of the left 10th rib. No acute cardiopulmonary findings Electronically Signed: Adams Slater, at 21:52 EST Tel , Service support , Active Problems (Last Reviewed 10/18/19 @ 11:24 by Linda Leon) Diabetic ulcer of left foot with muscle involvement without evidence of necrosis (Chronic) 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 capsular layer is in the wound bed Delayed wound healing (Chronic) Malnutrition (Chronic) Peripheral vascular disease (Chronic) Type 2 diabetes mellitus with diabetic polyneuropathy (Chronic) Type 2 diabetes mellitus with diabetic polyneuropathy (Chronic) Hammertoe of left foot (Chronic) Diabetes mellitus type 2 with complications (Chronic) Assessment: Left foot ulcer with capsule/muscle tissue exposed, Rousseau grade 3 treated for infection/bacterial colonization. Left foot deformities including tailor bunion and hammertoe. Peripheral vascular disease. Diabetes with polyneuropathy. Malnutrition. Delayed healing. Raynaud's disease Plan: I reviewed and discussed his case today. Subcutaneous excisional debridement was performed as noted in the clinical panel to left foot. The third toe ulcer site has remained healed and this is noted. He is completed oral antibiotics including Augmentin and ciprofloxacin based off of his prior culture results and appears to be doing better. I recommend application of advanced wound healing product this week, epi-fix. This was applied according to standard protocol 100% of the product was performed. This is medically necessary for limb salvage. He understands the indications, planned application, anticipated healing time and management. We will hold off on application of total contact cast this week due to moist peripheral skin and this will be considered again next week. He was advised to keep his dressing clean, dry, and intact until follow-up next week. To continue proper glycemic control nutritional supplementation optimize healing. Is noted his last hemoglobin A1c we have on file here is 5.9%. This is a chronic ulceration has been present for approximately 10 months. I recommend application of advanced wound healing product. He was advised to follow-up with his vascular surgeon, Dr. Pena as scheduled. He had recent updated vascular studies performed and Dr. Pena is considering additional intervention. I recommend proceeding if there are options available. Due to the increased depth he did also go through a recent osteomyelitis work-up. Osteomyelitis signs were not apparent on the MRI and this will be monitored very closely. Compliance was discussed. He was reassured there are no local signs of infection on the foot today. I answered his questions. He had prior capsule muscle tissue exposed and that further was infected per his culture results which would qualify and is awaiting grade 3. Hyperbaric oxygen therapy is an option for him and this will be discussed. He will see clinical nurse practitioner, Rivka Duarte, today for hyperbaric oxygen therapy screening assessment. He is familiar with the process because his father went to hyperbaric therapy. His recent echocardiogram is noted from August 2019 in which she had an ejection fraction of 56%. He also has updated lab work which was reviewed from August 2019. A chest x-ray was ordered at this time for pre-hyperbaric safety screening. He also understands he will need to proceed with a clearance and we will help him get this set up. The indication, benefits, risk, complications, anticipated management were reviewed with him today. I answered his questions. He denies being claustrophobic. To return to the wound healing center in 1 week or call sooner if he has any questions or concerns.
[2019-12-05 10:17] VITALS: BP 155/77; PULSE 78; RESP 18; TEMP 36.3; BMI 28.7
--- NOTE | 2019-12-05 16:48 | PN.PCM_ITS ---
(1) Chronic ulcer of left foot with necrosis of muscle Status: Chronic Current Visit: Yes Code(s): L97.523 - Non-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ulcer of other part of left foot with necrosis of muscle Comment: no necrosis or infection is noted. capsular layer is in the wound bed (2) Delayed wound healing Status: Chronic Current Visit: Yes Code(s): T14.8XXD - Other injury of unspecified body region, subsequent encounter (3) Malnutrition Status: Chronic Current Visit: Yes Code(s): E46 - Unspecified protein- calorie malnutrition (4) Peripheral vascular disease Status: Chronic Current Visit: Yes Code(s): I73.9 - Peripheral vascular disease, unspecified (5) Colonization status Status: Resolved Current Visit: Yes Code(s): Z22.9 - Carrier of infectious disease, unspecified Comment: Addressed with oral antibiotics (6) Hammertoe of left foot Status: Chronic Current Visit: Yes Code(s): M20.42 - Other hammer toe(s) (acquired), left foot (7) Diabetes mellitus type 2 with complications Status: Chronic Current Visit: Yes Code(s): E11.8 - Type 2 diabetes mellitus with unspecified complications (8) Type 2 diabetes mellitus with diabetic polyneuropathy Status: Chronic Current Visit: Yes Code(s): E11.42 - Type 2 diabetes mellitus with diabetic polyneuropathy Type of Wound Date of Service: 12/05/19 Chief Complaint: Left foot ulcer History of Wound: Mr. Espinoza is a 59-year-old with past medical history as stated above who is well-known to the wound center. He is able to offload better at this time. He also recently saw vascular surgery who did not recommend additional intervention at this time. He also had an MRI to rule out osteomyelitis due to the recent increase in ulcer depth which was negative. he denies fever, chill, nausea, vomiting, loss of appetite or pain to the foot. He had a deteriorating station of the ulcer with bacterial colonization and this was now progressed to a Rousseau grade 3. He completed a course of antibiotics as advised. He completed his pre-hyperbaric history and physical clearance exam and is waiting for insurance prior authorization. He is amendable to proceed. Progress of Wound: Stable; improving quality granular base - Physical Exam Vital Signs Temp Pulse Resp BP 97.3 F L 78 18 155/77 H 12/05/19 10:17 12/05/19 10:17 12/05/19 10:17 12/05/19 10:17 General: Alert, Oriented x3, Cooperative, No apparent distress Extremities: No cyanosis, Capillary Refill Less than 3 Seconds, No Calf Tenderness, Diminished Peripheral Pulses, Edema Skin: Ulcer/ Wound - No purulence, erythema, streaking, odor, infection. Adjacent skin is atrophic. Ulcer bed is granular Wound Measurements and Assessment WC - Nurse 1 - General Ulcer Measurement Start: 11/21/19 09:31 Freq: Status: Active Protocol: Activity Type Activity Date Activity User E-Sign Co-Sign Detail Recorded Client Recorded Date Recorded By Document 12/05/19 10:17 RB [id number] 12/05/19 10:19 RB 12/05/19 10:17 Wound Center Nurse 1 [Ulcer Assessment] 11. L plantar -Combined with other wound No -Current Size (cm) - Length 1.7 -Current Size (cm) - Width 1.4 -Current Size (cm) - Depth 0.4 -Total Square Cm 2.38 -Tunneling No -Undermining/Tunneling No -Circular Undermining No -Exudate Amt Medium -Exudate Type Serosanguineous -Wound Margin Thickened & Rolled Under -Granulation Amt Medium (34-66%) -Granulation Quality [place] -Slough/Fibrin Yes -Necrosis Amt Small (1-33%) -Necrotic Tissue Type Adherent Slough -Structure Exposed N/A -Texture (Mechelle-wound Skin Appearance) Assessed,Callus -Moisture (Mechelle-wound Skin Appearance Assessed ) -Color (Mechelle-wound Skin Appearance) Assessed -Temperature (Emchelle-wound Skin No Abnormality Appearance) (Pt Warm) -Tenderness on Palpation (Mechelle-wound No Skin Appearance) -Ulcer Cleansing Wound Cleanser -Foul Odor after Cleansing No -Anesthetic Used 5% Lidocaine Gel WC - Nurse 2 - General Ulcer CM Notes Start: 11/21/19 09:31 Freq: Status: Active Protocol: Activity Type Activity Date Activity User E-Sign Co-Sign Detail Recorded Client Recorded Date Recorded By Document 12/05/19 10:32 MARJORIE [id number] 12/05/19 10:36 MARJORIE 12/05/19 10:32 Wound Center Nurse 2 [Procedure/Treatment] -Time 10:32 -Correct Patient Yes -Correct Side, Site, Position Yes -Correct Procedure Yes -Procedure Performed Yes -Type of Procedure Debridement -Clinical Debridement Subcutaneous -Post Debridement Size (cm) - Length 1.8 -Post Debridement Size (cm) - Width 1.5 -Post Debridement Size (cm) - Depth 0.4 -Total Square Cm 2.70 -Wound/Ulcer Outcome Not Healed -Ulcer Cleansing Rinsed/ Irrigated with Saline -Foul Odor after Cleansing No -Bioengineered Tissue Yes -Type of bioengineered Tissue EPIFIX -Expiration Date 07/17/24 -Product Lot Number [id number] -Percent Used 100 -Saline Lot Number [id number] -Bleeding Controlled with Pressure -Offloading Yes -Type of Offloading Total Contact Cast (TCC) -Treatment Response Procedure Tolerated Well [See Physician Procedure note for Specifics] Pain Scale: 0-10 Numeric [Pain] -Is Patient Pain Free? Yes Musculoskeletal: No Tenderness to Palpation of Joints or Extremities, Muscle Wasting, - - Dorsal contracture lesser toes prominent metatarsal heads Neurological: - - Lack of normal epicritic sensation light touch is consistent with neuropathy status Psych/Mental Status: Normal Affect, Appropriate Debridement Note Post-Debridement Measurements/Treatment WC - Nurse 2 - General Ulcer CM Notes Start: 11/21/19 09:31 Freq: Status: Active Protocol: Activity Type Activity Date Activity User E-Sign Co-Sign Detail Recorded Client Recorded Date Recorded By Document 11/21/19 09:52 [id number] 11/21/19 09:56 Document 11/28/19 09:31 MW [id number] 11/28/19 09:34 MW Document 11/28/19 10:11 [id number] 11/28/19 10:19 Document 12/05/19 10:32 [id number] 12/05/19 10:36 11/21/19 11/28/19 11/28/19 09:52 09:31 10:11 Wound Center Nurse 2 12-right 2nd toe -Time 09:53 -Correct Patient No -Correct Side, Site, Position No -Correct Procedure No -Procedure Performed No -Post Debridement Size (cm) - Length 0 -Post Debridement Size (cm) - Width 0 -Post Debridement Size (cm) - Depth 0 -Total Square Cm 0 -Wound/Ulcer Outcome Healed- Epithelialized 11. L plantar -Time 09:54 10:11 -Correct Patient Yes Yes -Correct Side, Site, Position Yes Yes -Correct Procedure Yes Yes -Procedure Performed Yes Yes -Type of Procedure Debridement Debridement -Clinical Debridement Subcutaneous Subcutaneous -Post Debridement Size (cm) - Length 1.6 2.1 -Post Debridement Size (cm) - Width 1.8 1.8 -Post Debridement Size (cm) - Depth 0.5 0.4 -Total Square Cm 2.88 3.78 -Wound/Ulcer Outcome Not Healed Not Healed -Ulcer Cleansing Rinsed/ Rinsed/ Irrigated with Irrigated with Saline Saline -Foul Odor after Cleansing No No -Bioengineered Tissue Yes Yes -Type of bioengineered Tissue EPIFIX EPIFIX -Expiration Date 07/17/24 07/17/24 -Product Lot Number [id number] -Percent Used 100 100 -Saline Lot Number [id number] -Bleeding Controlled with Pressure Pressure -Offloading Yes Yes -Type of Offloading Total Contact Camwalker Cast (TCC) -Treatment Response Procedure Procedure Tolerated Well Tolerated Well Pain Scale: 0-10 Numeric Is Patient Pain Free? Yes Yes Yes 12/05/19 10:32 Wound Center Nurse 2 12-right 2nd toe -Time -Correct Patient -Correct Side, Site, Position -Correct Procedure -Procedure Performed -Post Debridement Size (cm) - Length -Post Debridement Size (cm) - Width -Post Debridement Size (cm) - Depth -Total Square Cm -Wound/Ulcer Outcome 11. L plantar -Time 10:32 -Correct Patient Yes -Correct Side, Site, Position Yes -Correct Procedure Yes -Procedure Performed Yes -Type of Procedure Debridement -Clinical Debridement Subcutaneous -Post Debridement Size (cm) - Length 1.8 -Post Debridement Size (cm) - Width 1.5 -Post Debridement Size (cm) - Depth 0.4 -Total Square Cm 2.70 -Wound/Ulcer Outcome Not Healed -Ulcer Cleansing Rinsed/ Irrigated with Saline -Foul Odor after Cleansing No -Bioengineered Tissue Yes -Type of bioengineered Tissue EPIFIX -Expiration Date 07/17/24 -Product Lot Number [id number] -Percent Used 100 -Saline Lot Number [id number] -Bleeding Controlled with Pressure -Offloading Yes -Type of Offloading Total Contact Cast (TCC) -Treatment Response Procedure Tolerated Well Pain Scale: 0-10 Numeric Is Patient Pain Free? Yes Wound debrided: plantar lateral foot Laterality: Left Wound Grade/Stage: grade 3 Type of Debridement: Excisional debridement Anesthesia Used: 5% Lidocaine Gel Depth: in the subcutaneous layer Percentage of wound debrided: 100 Instrument Used: #15 blade Tissue Removed: fibrous, devitalized subcutaneous, biofilm, slough Severity: Fat Layer Exposed Amount of bleeding with debridement: Mild Bleeding Controlled with: Pressure Patient tolerated procedure well Assessment/Plan Clinical Impression(s) from Imaging Studies Chest X-Ray 11/21/19 12:13 IMPRESSION: Possible nondisplaced fracture of the distal/anterior aspect of the left 10th rib. No acute cardiopulmonary findings Electronically Signed: Adams Slater, at 21:52 EST Tel , Service support , Active Problems (Last Reviewed 10/18/19 @ 11:24 by Linda Leon) Type 2 diabetes mellitus with foot ulcer (Acute) Type 2 diabetes mellitus with other specified complication (Acute) Diabetic ulcer of left foot with muscle involvement without evidence of necrosis (Chronic) 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 capsular layer is in the wound bed Delayed wound healing (Chronic) Malnutrition (Chronic) Peripheral vascular disease (Chronic) Type 2 diabetes mellitus with diabetic polyneuropathy (Chronic) Type 2 diabetes mellitus with diabetic polyneuropathy (Chronic) Hammertoe of left foot (Chronic) Diabetes mellitus type 2 with complications (Chronic) Assessment: Left foot ulcer with capsule/muscle tissue exposed, Rousseau grade 3 treated for infection/bacterial colonization. Left foot deformities including tailor bunion and hammertoe. Peripheral vascular disease. Diabetes with polyneuropathy. Malnutrition. Delayed healing. Raynaud's disease Plan: I reviewed and discussed his case today. Subcutaneous excisional debridement was performed as noted in the clinical panel to left foot. The third toe ulcer site has remained healed and this is noted. He is completed oral antibiotics including Augmentin and ciprofloxacin based off of his prior culture results and appears to be doing better. I recommend application of advanced wound healing product this week, epi-fix. This was applied according to standard protocol 100% of the product was performed. This is medically necessary for limb salvage. He understands the indications, planned application, anticipated healing time and management. A well-padded total contact cast was applied with the limb in a neutral position according standard protocol. He tolerated this well. He was advised to keep his dressing clean, dry, and intact until follow-up next week. To continue proper glycemic control nutritional supplementation optimize healing. Is noted his last hemoglobin A1c we have on file here is 5.9%. This is a chronic ulceration has been present for approximately 10 months. I recommend application of advanced wound healing product. He was advised to follow-up with his vascular surgeon, Dr. Pena as scheduled. He had recent updated vascular studies performed and Dr. Pena is considering additional intervention. I recommend proceeding if there are options available. Due to the increased depth he did also go through a recent osteomyelitis work-up. Osteomyelitis signs were not apparent on the MRI and this will be monitored very closely. Compliance was discussed. He was reassured there are no local signs of infection on the foot today. I answered his questions. He had prior capsule muscle tissue exposed and that further was infected per his culture results which would qualify and is awaiting grade 3. Hyperbaric oxygen therapy is an option for him and this will be discussed. He will see clinical nurse practitioner, Rivka Duarte, today for hyperbaric oxygen therapy screening assessment. He is familiar with the process because his father went to hyperbaric therapy. His recent echocardiogram is noted from August 2019 in which she had an ejection fraction of 56%. He also has updated lab work which was reviewed from August 2019. A chest x-ray was ordered at this time for pre-hyperbaric safety screening. He also understands he will need to proceed with a clearance and we will help him get this set up. The indication, benefits, risk, complications, anticipated management were reviewed with him today. I answered his questions. He denies being claustrophobic. To return to the wound healing center in 1 week or call sooner if he has any questions or concerns.
[2019-12-12 10:56] VITALS: BP 156/52; PULSE 98; RESP 20; TEMP 37.1; BMI 28.7
--- NOTE | 2019-12-12 23:30 | PN.PCM_ITS ---
(1) Chronic ulcer of left foot with necrosis of muscle Status: Chronic Current Visit: Yes Code(s): L97.523 - Non-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ulcer of other part of left foot with necrosis of muscle Comment: no necrosis or infection is noted. capsular layer is in the wound bed (2) Delayed wound healing Status: Chronic Current Visit: Yes Code(s): T14.8XXD - Other injury of unspecified body region, subsequent encounter (3) Malnutrition Status: Chronic Current Visit: Yes Code(s): E46 - Unspecified protein- calorie malnutrition (4) Peripheral vascular disease Status: Chronic Current Visit: Yes Code(s): I73.9 - Peripheral vascular disease, unspecified (5) Colonization status Status: Resolved Current Visit: Yes Code(s): Z22.9 - Carrier of infectious disease, unspecified Comment: Addressed with oral antibiotics (6) Hammertoe of left foot Status: Chronic Current Visit: Yes Code(s): M20.42 - Other hammer toe(s) (acquired), left foot (7) Type 2 diabetes mellitus with diabetic polyneuropathy Status: Chronic Current Visit: Yes Code(s): E11.42 - Type 2 diabetes mellitus with diabetic polyneuropathy Type of Wound Date of Service: 12/12/19 Chief Complaint: Left foot ulcer History of Wound: Mr. Espinoza is a 59-year-old with past medical history as stated above who is well-known to the wound center. He is able to offload better at this time. He also recently saw vascular surgery who did not recommend additional intervention at this time. He also had an MRI to rule out osteomyelitis due to the recent increase in ulcer depth which was negative. he denies fever, chill, nausea, vomiting, loss of appetite or pain to the foot. He had a deteriorating station of the ulcer with bacterial colonization and this was now progressed to a Rousseau grade 3. He completed a course of antibiotics as advised. He completed his pre-hyperbaric history and physical clearance exam and is waiting for insurance prior authorization. He is amendable to proceed. 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 He relates his children have been on his case walking on his limb and jumping off a tractor. Progress of Wound: Stable - Physical Exam Vital Signs Temp Pulse Resp BP 98.7 F 98 20 H 156/52 H 12/12/19 10:56 12/12/19 10:56 12/12/19 10:56 12/12/19 10:56 General: Alert, Oriented x3, Cooperative, No apparent distress Extremities: No cyanosis, Capillary Refill Less than 3 Seconds, No Calf Tender ness, Diminished Peripheral Pulses, Edema Skin: Ulcer/ Wound - No purulence, erythema, streaking, odor, infection. The peripheral skin is atrophic and hairless. There is no exposed bone. However there is a prominent fourth metatarsal head that lined up directly with the ulcer Wound Measurements and Assessment WC - Nurse 1 - General Ulcer Measurement Start: 11/21/19 09:31 Freq: Status: Active Protocol: Activity Type Activity Date Activity User E-Sign Co-Sign Detail Recorded Client Recorded Date Recorded By Document 12/12/19 10:56 DL [id number] 12/12/19 11:10 DL 12/12/19 10:56 Wound Center Nurse 1 [Ulcer Assessment] 11. L plantar -Current Size (cm) - Length 2 -Current Size (cm) - Width 1.6 -Current Size (cm) - Depth 0.3 -Total Square Cm 3.2 -Photo Taken No -Exudate Amt Large -Exudate Type Serosanguineous -Wound Margin Thickened -Granulation Amt Small (1-33%) -Granulation Quality Red -Necrosis Amt Large (67-100%) -Necrotic Tissue Type Adherent Slough -Structure Exposed N/A -Texture (Mechelle-wound Skin Appearance) Callus,Scarring -Moisture (Mechelle-wound Skin Appearance Maceration ) -Color (Mechelle-wound Skin Appearance) No Abnormality -Temperature (Mechelle-wound Skin No Abnormality Appearance) (Pt Warm) -Tenderness on Palpation (Mechelle-wound No Skin Appearance) -Ulcer Cleansing Wound Cleanser -Foul Odor after Cleansing No -Anesthetic Used 4% Lidocaine Solution WC - Nurse 2 - General Ulcer CM Notes Start: 11/21/19 09:31 Freq: Status: Active Protocol: Activity Type Activity Date Activity User E-Sign Co-Sign Detail Recorded Client Recorded Date Recorded By Document 12/12/19 11:19 JF [id number] 12/12/19 11:23 MARJORIE 12/12/19 11:19 Wound Center Nurse 2 [Procedure/Treatment] -Time 11:19 -Correct Patient Yes -Correct Side, Site, Position Yes -Correct Procedure Yes -Procedure Performed Yes -Type of Procedure Debridement -Clinical Debridement Subcutaneous -Post Debridement Size (cm) - Length 2.1 -Post Debridement Size (cm) - Width 1.6 -Post Debridement Size (cm) - Depth 0.3 -Total Square Cm 3.36 -Wound/Ulcer Outcome Not Healed -Ulcer Cleansing Rinsed/ Irrigated with Saline -Foul Odor after Cleansing No -Bioengineered Tissue Yes -Type of bioengineered Tissue EPIFIX -Expiration Date 08/17/24 -Product Lot Number [id number] -Percent Used 100 -Saline Lot Number [id number] -Bleeding Controlled with Pressure -Offloading Yes -Type of Offloading Camwalker -Treatment Response Procedure Tolerated Well [See Physician Procedure note for Specifics] Pain Scale: 0-10 Numeric [Pain] -Is Patient Pain Free? Yes Musculoskeletal: No Tenderness to Palpation of Joints or Extremities, Muscle Wasting, - - Dorsal and tractional lesser toes and prominent metatarsal heads Neurological: - - Lack of normal epicritic sensation light touch is consistent with neuropathy status Psych/Mental Status: Normal Affect, Appropriate Debridement Note Post-Debridement Measurements/Treatment WC - Nurse 2 - General Ulcer CM Notes Start: 11/21/19 09:31 Freq: Status: Active Protocol: Activity Type Activity Date Activity User E-Sign Co-Sign Detail Recorded Client Recorded Date Recorded By Document 11/21/19 09:52 [id number] 11/21/19 09:56 JF Document 11/28/19 09:31 MW [id number] 11/28/19 09:34 MW Document 11/28/19 10:11 JF [id number] 11/28/19 10:19 JF Document 12/05/19 10:32 JF [id number] 12/05/19 10:36 JF Document 12/12/19 11:19 JF [id number] 12/12/19 11:23 JF 11/21/19 11/28/19 11/28/19 09:52 09:31 10:11 Wound Center Nurse 2 12-right 2nd toe -Time 09:53 -Correct Patient No -Correct Side, Site, Position No -Correct Procedure No -Procedure Performed No -Post Debridement Size (cm) - Length 0 -Post Debridement Size (cm) - Width 0 -Post Debridement Size (cm) - Depth 0 -Total Square Cm 0 -Wound/Ulcer Outcome Healed- Epithelialized 11. L plantar -Time 09:54 10:11 -Correct Patient Yes Yes -Correct Side, Site, Position Yes Yes -Correct Procedure Yes Yes -Procedure Performed Yes Yes -Type of Procedure Debridement Debridement -Clinical Debridement Subcutaneous Subcutaneous -Post Debridement Size (cm) - Length 1.6 2.1 -Post Debridement Size (cm) - Width 1.8 1.8 -Post Debridement Size (cm) - Depth 0.5 0.4 -Total Square Cm 2.88 3.78 -Wound/Ulcer Outcome Not Healed Not Healed -Ulcer Cleansing Rinsed/ Rinsed/ Irrigated with Irrigated with Saline Saline -Foul Odor after Cleansing No No -Bioengineered Tissue Yes Yes -Type of bioengineered Tissue EPIFIX EPIFIX -Expiration Date 07/17/24 07/17/24 -Product Lot Number [id number] -Percent Used 100 100 -Saline Lot Number [id number] -Bleeding Controlled with Pressure Pressure -Offloading Yes Yes -Type of Offloading Total Contact Camwalker Cast (TCC) -Treatment Response Procedure Procedure Tolerated Well Tolerated Well Pain Scale: 0-10 Numeric Is Patient Pain Free? Yes Yes Yes 12/05/19 12/12/19 10:32 11:19 Wound Center Nurse 2 12-right 2nd toe -Time -Correct Patient -Correct Side, Site, Position -Correct Procedure -Procedure Performed -Post Debridement Size (cm) - Length -Post Debridement Size (cm) - Width -Post Debridement Size (cm) - Depth -Total Square Cm -Wound/Ulcer Outcome 11. L plantar -Time 10:32 11:19 -Correct Patient Yes Yes -Correct Side, Site, Position Yes Yes -Correct Procedure Yes Yes -Procedure Performed Yes Yes -Type of Procedure Debridement Debridement -Clinical Debridement Subcutaneous Subcutaneous -Post Debridement Size (cm) - Length 1.8 2.1 -Post Debridement Size (cm) - Width 1.5 1.6 -Post Debridement Size (cm) - Depth 0.4 0.3 -Total Square Cm 2.70 3.36 -Wound/Ulcer Outcome Not Healed Not Healed -Ulcer Cleansing Rinsed/ Rinsed/ Irrigated with Irrigated with Saline Saline -Foul Odor after Cleansing No No -Bioengineered Tissue Yes Yes -Type of bioengineered Tissue EPIFIX EPIFIX -Expiration Date 07/17/24 08/17/24 -Product Lot Number [id number] -Percent Used 100 100 -Saline Lot Number [id number] -Bleeding Controlled with Pressure Pressure -Offloading Yes Yes -Type of Offloading Total Contact Camwalker Cast (TCC) -Treatment Response Procedure Procedure Tolerated Well Tolerated Well Pain Scale: 0-10 Numeric Is Patient Pain Free? Yes Yes Wound debrided: plantar lateral foot Laterality: Left Wound Grade/Stage: grade 3 Type of Debridement: Excisional debridement Anesthesia Used: 5% Lidocaine Gel Depth: in the subcutaneous layer Percentage of wound debrided: 100 Instrument Used: #15 blade Tissue Removed: fibrous, devitalized subcutaneous, biofilm, slough Severity: Fat Layer Exposed Amount of bleeding with debridement: Mild Bleeding Controlled with: Pressure Patient tolerated procedure well Assessment/Plan Clinical Impression(s) from Imaging Studies Chest X-Ray 11/21/19 12:13 IMPRESSION: Possible nondisplaced fracture of the distal/anterior aspect of the left 10th rib. No acute cardiopulmonary findings Electronically Signed: Adams Slater, at 21:52 EST Tel , Service support , Active Problems (Last Reviewed 10/18/19 @ 11:24 by Linda Leon) Type 2 diabetes mellitus with foot ulcer (Acute) Type 2 diabetes mellitus with other specified complication (Acute) Diabetic ulcer of left foot with muscle involvement without evidence of necrosis (Chronic) 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 capsular layer is in the wound bed Delayed wound healing (Chronic) Malnutrition (Chronic) Peripheral vascular disease (Chronic) Type 2 diabetes mellitus with diabetic polyneuropathy (Chronic) Type 2 diabetes mellitus with diabetic polyneuropathy (Chronic) Hammertoe of left foot (Chronic) Diabetes mellitus type 2 with complications (Chronic) Assessment: Left foot ulcer with capsule/muscle tissue exposed, Rousseau grade 3 treated for infection/bacterial colonization. Left foot deformities including tailor bunion and hammertoe. Peripheral vascular disease. Diabetes with polyneuropathy. Malnutrition. Delayed healing. Raynaud's disease Plan: I reviewed and discussed his case today. Subcutaneous excisional debridement was performed as noted in the clinical panel to left foot. The third toe ulcer site has remained healed and this is noted. He is completed oral antibiotics including Augmentin and ciprofloxacin based off of his prior culture results and appears to be doing better. I recommend application of advanced wound healing product this week, epi-fix. This was applied according to standard protocol 100% of the product was performed. This is medically necessary for limb salvage. He understands the indications, planned application, anticipated healing time and management. He tolerated this well. He was advised to keep his dressing clean, dry, and intact until follow-up next week. To continue proper glycemic control nutritional supplementation optimize healing. Is noted his last hemoglobin A1c we have on file here is 5.9%. This is a chronic ulceration has been present for approximately 10 months. I thomas mmend application of advanced wound healing product. He was advised to follow-up with his vascular surgeon, Dr. Pena as scheduled. He had recent updated vascular studies performed and Dr. Pena is considering additional intervention. I recommend proceeding if there are options available. Due to the increased depth he did also go through a recent osteomyelitis work-up. Osteomyelitis signs were not apparent on the MRI and this will be monitored very closely. Compliance was discussed. He was reassured there are no local signs of infection on the foot today. I answered his questions. He had prior capsule muscle tissue exposed and that further was infected per his culture results which would qualify and is awaiting grade 3. Hyperbaric oxygen therapy is an option for him and this will be discussed. He will see clinical nurse practitioner, Rivka Duarte, today for hyperbaric oxygen therapy screening assessment. He is familiar with the process because his father went to hyperbaric therapy. His recent echocardiogram is noted from August 2019 in which she had an ejection fraction of 56%. He also has updated lab work which was reviewed from August 2019. A chest x-ray was ordered at this time for pre-hyperbaric safety screening. He also understands he will need to proceed with a clearance and we will help him get this set up. The indication, benefits, risk, complications, anticipated management were reviewed with him today. I answered his questions. He denies being claustrophobic. We also discussed surgical intervention such as fourth metatarsal head resection. He relates he would not be able to stay off of it to allow healing. 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 Advised on moving forward with surgical intervention if he is able to allow healing in the postoperative setting. Other options include going on a complex palliative type of the plan. He would like more time to think about this. To return to the wound healing center in 1 week or call sooner if he has any questions or concerns.
== END 2019-12-15 23:59 ==
LOC: WC 10:45
PROVIDERS: Family Provider Student in an Organized Health Care Education/Training Program; PCP Student in an Organized Health Care Education/Training Program; Referring Provider Podiatrist; Visit Provider Podiatrist
DX: E11.621 Type 2 diabetes mellitus with foot ulcer (principal); E11.42 Type 2 diabetes mellitus with diabetic polyneuropathy; M20.42 Other hammer toe(s) (acquired), left foot; L97.522 Non-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ulcer of other part of left foot with fat layer exposed; M20.41 Other hammer toe(s) (acquired), right foot; I73.00 Raynaud's syndrome without gangrene; I25.10 Atherosclerotic heart disease of native coronary artery without angina pectoris; I10 Essential (primary) hypertension; L85.3 Xerosis cutis; Z79.899 Other long term (current) drug therapy; Z79.4 Long term (current) use of insulin; Z79.82 Long term (current) use of aspirin; Z87.891 Personal history of nicotine dependence
CPT/HCPCS: 15275; 29445; 71046; 99213; Q4186; G0463

== ENCOUNTER 2020-01-14 09:30 | Outpatient (RCR) | payer MEDICAID, SELFPAY ==
[2019-12-16 00:48] VITALS: BP 156/52; PULSE 98; RESP 20; TEMP 37.1
[2019-12-19 10:41] VITALS: BP 133/82; PULSE 82; RESP 18; TEMP 36.7; BMI 28.7
--- NOTE | 2019-12-19 11:17 | PN.PCM_ITS ---
(1) Chronic ulcer of left foot with necrosis of muscle Status: Chronic Current Visit: Yes Code(s): L97.523 - Non-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ulcer of other part of left foot with necrosis of muscle Comment: capsular layer is in the wound bed. grade 3 treated medically (2) Delayed wound healing Status: Chronic Current Visit: Yes Code(s): T14.8XXD - Other injury of unspecified body region, subsequent encounter (3) Malnutrition Status: Chronic Current Visit: Yes Code(s): E46 - Unspecified protein- calorie malnutrition (4) Type 2 diabetes mellitus with diabetic polyneuropathy Status: Chronic Current Visit: Yes Code(s): E11.42 - Type 2 diabetes mellitus with diabetic polyneuropathy (5) Tobacco abuse Status: Chronic Current Visit: Yes Code(s): Z72.0 - Tobacco use (6) Raynaud disease Status: Chronic Current Visit: Yes Code(s): I73.00 - Raynaud's syndrome without gangrene Type of Wound Date of Service: 12/19/19 Chief Complaint: Left foot ulcer History of Wound: Mr. Espinoza is a 59-year-old with past medical history as stated above who is well-known to the wound center. He is able to offload better at this time. He also recently saw vascular surgery who did not recommend additional intervention at this time. He also had an MRI to rule out osteomyelitis due to the recent increase in ulcer depth which was negative. he denies fever, chill, nausea, vomiting, loss of appetite or pain to the foot. He had a deteriorating station of the ulcer with bacterial colonization and this was now progressed to a Rousseau grade 3. He completed a course of antibiotics as advised. He is started the process of hyperbaric oxygen therapy. He is amendable to proceed with epi-fix and total contact cast application today in addition hyperbaric oxygen therapy. He is also scheduled to see medical research scientist tomorrow to have potential tubes placed. It is noted he is chewing tobacco after he completed his hyperbaric oxygen therapy session and he typically swallows the tobacco. He relates when he is admitted at the hospital he typically brings his own salt shaker from home so he can season the food better. Progress of Wound: Stable - Physical Exam Vital Signs Temp Pulse Resp BP 98.0 F 82 18 133/82 H 12/19/19 10:41 12/19/19 10:41 12/19/19 10:41 12/19/19 10:41 General: Alert, Oriented x3, Cooperative, No apparent distress Extremities: No cyanosis, Capillary Refill Less than 3 Seconds, No Calf Tenderness, Diminished Peripheral Pulses, Edema Skin: Ulcer/ Wound - No purulence, erythema, streaking, odor, or acute infection. He did have prior deterioration of the submetatarsal head site with exposed capsule and erythema and this has resolved since antibiotic treatment. His adjacent skin is hairless and atrophic. There is no maceration or visualized bone today. Wound Measurements and Assessment WC - Nurse 1 - General Ulcer Measurement Start: 12/19/19 10:41 Freq: Status: Active Protocol: Activity Type Activity Date Activity User E-Sign Co-Sign Detail Recorded Client Recorded Date Recorded By Document 12/19/19 10:41 DL [id number] 12/19/19 10:43 DL 12/19/19 10:41 Wound Center Nurse 1 [Ulcer Assessment] 11. L plantar -Combined with other wound No -Current Size (cm) - Length 1.5 -Current Size (cm) - Width 1.3 -Current Size (cm) - Depth 0.3 -Total Square Cm 1.95 -Photo Taken No -Epithelialization Small 1-33% -Tunneling No -Undermining/Tunneling No -Circular Undermining No -Exudate Amt Medium -Exudate Type Serosanguineous -Wound Margin Flat & Intact -Granulation Amt Medium (34-66%) -Granulation Quality Red -Slough/Fibrin Yes -Necrosis Amt Medium (34-66%) -Necrotic Tissue Type Adherent Slough -Structure Exposed N/A -Texture (Mechelle-wound Skin Appearance) Assessed,Callus -Moisture (Mechelle-wound Skin Appearance Assessed, ) Maceration -Color (Mechelle-wound Skin Appearance) Assessed -Temperature (Mechelle-wound Skin No Abnormality Appearance) (Pt Warm) -Tenderness on Palpation (Mechelle-wound No Skin Appearance) -Ulcer Cleansing Wound Cleanser -Foul Odor after Cleansing No -Anesthetic Used 4% Lidocaine Solution [Edema Assessment] -Lower Limb Edema Present No WC - Nurse 2 - General Ulcer CM Notes Start: 12/19/19 10:41 Freq: Status: Active Protocol: Activity Type Activity Date Activity User E-Sign Co-Sign Detail Recorded Client Recorded Date Recorded By Document 12/19/19 11:09 [id number] 12/19/19 11:10 12/19/19 11:09 Wound Center Nurse 2 [Procedure/Treatment] 11. L plantar -Time 11:09 -Correct Patient Yes -Correct Side, Site, Position Yes -Correct Procedure Yes -Procedure Performed Yes -Type of Procedure Debridement -Clinical Debridement Subcutaneous -Post Debridement Size (cm) - Length 1.6 -Post Debridement Size (cm) - Width 1.4 -Post Debridement Size (cm) - Depth 0.3 -Total Square Cm 2.24 -Wound/Ulcer Outcome Not Healed -Ulcer Cleansing Rinsed/ Irrigated with Saline -Foul Odor after Cleansing No -Bioengineered Tissue Yes -Type of bioengineered Tissue EPIFIX -Expiration Date 08/17/24 -Product Lot Number [id number] -Percent Used 100 -Saline Lot Number [id number] -Bleeding Controlled with Pressure -Offloading Yes -Type of Offloading Camwalker -Treatment Response Procedure Tolerated Well [See Physician Procedure note for Specifics] Pain Scale: 0-10 Numeric [Pain] -Is Patient Pain Free? Yes Musculoskeletal: No Tenderness to Palpation of Joints or Extremities, Muscle Wasting, - - Dorsal contraction of lesser toes and prominent metatarsal head. Intrinsic minus foot noted Neurological: - - Lack of epicritic sensation light touch is consistent with neuropathy status Psych/Mental Status: Normal Affect, Appropriate, - - Chewing tobacco noted Debridement Note Post-Debridement Measurements/Treatment WC - Nurse 2 - General Ulcer CM Notes Start: 12/19/19 10:41 Freq: Status: Active Protocol: Activity Type Activity Date Activity User E-Sign Co-Sign Detail Recorded Client Recorded Date Recorded By Document 12/19/19 11:09 [id number] 12/19/19 11:10 12/19/19 11:09 Wound Center Nurse 2 11. L plantar -Time 11:09 -Correct Patient Yes -Correct Side, Site, Position Yes -Correct Procedure Yes -Procedure Performed Yes -Type of Procedure Debridement -Clinical Debridement Subcutaneous -Post Debridement Size (cm) - Length 1.6 -Post Debridement Size (cm) - Width 1.4 -Post Debridement Size (cm) - Depth 0.3 -Total Square Cm 2.24 -Wound/Ulcer Outcome Not Healed -Ulcer Cleansing Rinsed/ Irrigated with Saline -Foul Odor after Cleansing No -Bioengineered Tissue Yes -Type of bioengineered Tissue EPIFIX -Expiration Date 08/17/24 -Product Lot Number [id number] -Percent Used 100 -Saline Lot Number [id number] -Bleeding Controlled with Pressure -Offloading Yes -Type of Offloading Camwalker -Treatment Response Procedure Tolerated Well Pain Scale: 0-10 Numeric Is Patient Pain Free? Yes Wound debrided: sub 4th metatarsal head Laterality: Left Wound Grade/Stage: grade 3 Type of Debridement: Excisional debridement Anesthesia Used: 5% Lidocaine Gel Depth: in the subcutaneous layer Percentage of wound debrided: 100 Instrument Used: #15 blade Tissue Removed: fibrous, devitalized subcuteaneous, biofilm, slough Severity: Fat Layer Exposed Amount of bleeding with debridement: Mild Bleeding Controlled with: Pressure Patient tolerated procedure well Assessment/Plan Active Problems (Last Reviewed 10/18/19 @ 11:24 by Linda Leon) Tobacco abuse (Chronic) Raynaud disease (Chronic) 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 grade 3 treated medically Delayed wound healing (Chronic) Malnutrition (Chronic) Type 2 diabetes mellitus with diabetic polyneuropathy (Chronic) Assessment: Left foot ulcer with capsule/muscle tissue exposed, Rousseau grade 3 treated for infection/bacterial colonization. Left foot deformities including tailor bunion and hammertoe. Peripheral vascular disease. Diabetes with polyneuropathy. Malnutrition. Delayed healing. Raynaud's disease. Poor diet. Continued tobacco use Plan: I reviewed and discussed his case today. Subcutaneous excisional debridement was performed as noted in the clinical panel to left foot. He has completed oral antibiotics including Augmentin and ciprofloxacin based off of his prior culture results and appears to be doing better. I recommend application of advanced wound healing product this week, epi-fix. This was applied according to standard protocol 100% of the product was performed. This is medically necessary for limb salvage. He understands the indications, planned application, anticipated healing time and management. He tolerated this well. He was advised to keep his dressing clean, dry, and intact until follow- up next week. After he emerged from the hyperbaric oxygen therapy chamber, an additional well-padded total contact cast was applied with the affected limb in neutral position. He was also placed keep this clean dry and intact and to avoid walking on this. To continue proper glycemic control nutritional supplementation optimize healing. Is noted his last hemoglobin A1c we have on file here is 5.9%. This is a chronic ulceration has been present for approximately over 1 year. I recommend application of advanced wound healing product. He was advised to follow-up with his vascular surgeon, Dr. Pena as scheduled. He had recent updated vascular studies performed and Dr. Pena is considering additional intervention. I recommend proceeding if there are o ptions available. Due to the increased depth he did also go through a recent osteomyelitis work-up. Osteomyelitis signs were not apparent on the MRI and this will be monitored very closely. Compliance was discussed. He was reassured there are no local signs of infection on the foot today. I answered his questions. He had prior capsule muscle tissue exposed and that further was infected per his culture results which would qualify and is awaiting grade 3. Hyperbaric oxygen therapy is an option for him and this will be discussed. His recent echocardiogram is noted from August 2019 in which she had an ejection fraction of 56%. He also has updated lab work which was reviewed from August 2019. A chest x-ray was ordered at this time for pre-hyperbaric safety screening. He is started the sessions and has some recent ear inflammation. He will meet with medical research scientist for potential tube placement tomorrow. The indication, benefits, risk, complications, anticipated management were reviewed with him today. I answered his questions. We also discussed surgical intervention such as fourth metatarsal head resection. He relates he would not be able to stay off of it to allow healing. 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 Advised on moving forward with surgical intervention if he is able to allow healing in the postoperative setting. Other options include going on a complex palliative type of the plan. He would like more time to think about this. Tobacco cessation was reviewed and this is imperative for his healing potential. He has ray nods and ongoing delayed and nonhealing ulcers of his feet and hands. I also urged him to take his nutrition status more serious. Not only does he have uncontrolled diabetes he also suffers from cardiac disease and other medical comorbidities. I advised him to avoid excessive salt use. I also offered him a nutrition referral. To return to the wound healing center in 1 week or call sooner if he has any questions or concerns.
[2019-12-19 11:46] LABS: Bedside Glucose 160 mg/dL (70-110)
[2019-12-19 13:16] VITALS: BP 120/73; BP 121/73; PULSE 71; PULSE 73; RESP 16; RESP 18; TEMP 36.4; TEMP 36.7
[2019-12-19 14:46] LABS: Bedside Glucose 99 mg/dL (70-110)
--- NOTE | 2019-12-19 15:57 | HBO.PN.PCM_ITS ---
History of Present Illness Date of Service: 12/19/19 Presenting Chief Complaint: Left foot ulcer RICK GEORGE Jr. is a 59 year old currently undergoing hyperbaric oxygen therapy for left plantar Adri grade 3 DFU. Progress: Today represents the first hyperbaric oxygen therapy treatment and a planned 40 sessions. Tolerance of hyperbaric oxygen therapy: Hyperbaric oxygen treatment was provided as per the facility's protocol at 2.0 VINNY and 100% oxygen for 90 minutes. The patient tolerated hyperbaric oxygen well, without complications or complaints. Upon emergence of the hyperbaric chamber the patient's vital signs remained stable. Upon reexamination barotrauma was identified to both right and left tympanic membranes. The patient denies any discomfort or pain. See documented blood glucose levels. 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 capsular layer is in the wound bed. 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 Zhu of [facility] Ess[facility] (primary) hypertension (Chronic) Other specified peripheral vascular diseases (Chronic) Skin ulcer of finger with fat layer exposed (Chronic) Right Index Finger 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) Allergies/Adverse Reactions: Allergies atorvastatin Adverse Reaction (Verified 08/23/19 12:36) Unknown metformin Adverse Reaction (Verified 08/23/19 12:36) Diarrhea Home Medications: Ambulatory Orders Medication Instructions Recorded Ammonium Lactate [Amlactin] 57 gm TP PRN PRN 10/04/17 Celecoxib [Celebrex] 200 mg PO DAILY 10/04/17 Cholecalciferol (Vitamin D3) 5,000 unit PO DAILY 10/04/17 [Vitamin D3] Levomefolate/B6/B12/Algal Oil 1 ea PO DAILY 10/04/17 [Metanx Capsule] Nortriptyline HCl 50 mg PO QHS 10/04/17 Biotin 1 mg PO DAILY 04/01/18 Desonide 0.05% [Desowen 0.05% 1 applic TOPICAL BID 04/01/18 Cream] Diflorasone Diacetate [Psorcon] 1 applicatio TP BID PRN 04/01/18 Insulin Glargine,Hum.rec.anlog 20 unit SQ QHS 04/01/18 [Basaglar Kwikpen U-100] Insulin Lispro [Humalog KwikPen] See Protocol SQ TIDCM 04/01/18 Ketoconazole [Nizoral] 1 applic TOPICAL DAILY PRN 04/01/18 Magnesium 250 mg PO DAILY 04/01/18 metoprolol tartrate 25 mg tablet 12.5 mg PO BID tab MDD 1.5 tabs 07/19/18 lisinopril 5 mg tablet 5 mg PO QDAY #30 tab 03/19/19 albuterol sulfate 90 mcg/actuation 2 puff INHALATION Q4H PRN g 08/13/19 aerosol inhaler amlodipine 10 mg tablet 10 mg PO DAILY 08/13/19 becaplermin 0.01 % topical gel 1 applic TOPICAL DAILY 08/13/19 cetirizine 10 mg tablet 10 mg PO DAILY 08/13/19 gabapentin 300 mg capsule 900 mg PO TID cap 08/13/19 nifedipine 30 mg tablet,extended 30 mg PO DAILY 08/13/19 release simvastatin 10 mg tablet 10 mg PO QHS 08/13/19 vardenafil 20 mg tablet 20 mg PO DAILY PRN 08/13/19 Cyanocobalamin [Vitamin B12] 1,000 mcg IM Q30D 08/22/19 aspirin 81 mg tablet,delayed 162 mg PO DAILY tab MDD . 10/12/19 release baclofen 20 mg tablet 30 mg PO TID tab 10/12/19 cephalexin 500 mg capsule 500 mg PO Q6H cap 10/12/19 famotidine 20 mg tablet 20 mg PO DAILY PRN 10/12/19 furosemide 20 mg tablet 20 mg PO BID PRN tab 10/12/19 Maternal Family History: Family History (Last Reviewed 10/18/19 @ 11:24 by Linda Leon) Other Arthritis Hypertension Family History: Diabetes Paternal Family History: Family History (Last Reviewed 10/18/19 @ 11:24 by Linda Leon) Other Arthritis Hypertension Family History: Diabetes Smoking Status: Former smoker Physical Exam Vital Signs Temp Pulse Resp BP 98.0 F 73 18 120/73 12/19/19 13:16 12/19/19 13:16 12/19/19 13:16 12/19/19 13:16 General: Alert, Oriented x3, Cooperative, No apparent distress HEENT: Atraumatic, TM's Clear, - - Reexamination after hyperbaric oxygen therapy completed identified barotrauma to both right and left, as evidenced by hemotympanum. Lungs: Clear to auscultation, Normal air movement Cardiovascular: Regular rate, Regular Rhythm Psych/Mental Status: Normal Affect, Appropriate, Alert and oriented to time, p lace, person, mood and affect Assessment/Plan Active Problems (Last Reviewed 10/18/19 @ 11:24 by Linda Leon) 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 capsular layer is in the wound bed. grade 3 Delayed wound healing (Chronic) Malnutrition (Chronic) Type 2 diabetes mellitus with diabetic polyneuropathy (Chronic) The patient did experience barotrauma to right and left tympanic membranes. He is being referred to early childhood associate teacher for evaluation and treatment. Defer any further hyperbaric oxygen therapy sessions until after patient is cleared by ENT.
[2019-12-20 14:05] LABS: Bedside Glucose 124 mg/dL (70-110)
[2019-12-20 14:47] VITALS: BP 117/62; BP 121/76; PULSE 78; PULSE 81; RESP 16; RESP 18; TEMP 36.3; TEMP 36.7
[2019-12-20 16:41] LABS: Bedside Glucose 120 mg/dL (70-110)
--- NOTE | 2019-12-20 20:05 | PCM.HBO.PN ---
History of Present Illness Date of Service: 12/20/19 Presenting Chief Complaint: Left foot ulcer RICK GEORGE Jr. is a 59 year old currently undergoing hyperbaric oxygen therapy for left plantar Rousseau grade 3 DFU. Progress: Today represents the 2nd hyperbaric oxygen therapy treatment and a planned 40 sessions. Tolerance of hyperbaric oxygen therapy: Hyperbaric oxygen treatment was provided as per the facility's protocol at 2.0 VINNY and 100% oxygen for 90 minutes. The patient tolerated hyperbaric oxygen well, without complications or complaints. Upon emergence of the hyperbaric chamber the patient's vital signs remained stable. The patient did have barotrauma that occurred to the bilateral TMs after his first HBO treatment and therefore he received bilateral tympanostomy tubes on 12/20/2019. The patient denies any discomfort or pain. See documented blood glucose levels. 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 capsular layer is in the wound bed. 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 Zhu of [facility] Essential (primary) hypertension (Chronic) Other specified peripheral vascular diseases (Chronic) Skin ulcer of finger with fat layer exposed (Chronic) Right Index Finger 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) Allergies/Adverse Reactions: Allergies atorvastatin Adverse Reaction (Verified 08/23/19 12:36) Unknown metformin Adverse Reaction (Verified 08/23/19 12:36) Diarrhea Home Medications: Ambulatory Orders Medication Instructions Recorded Ammonium Lactate [Amlactin] 57 gm TP PRN PRN 10/04/17 Celecoxib [Celebrex] 200 mg PO DAILY 10/04/17 Cholecalciferol (Vitamin D3) 5,000 unit PO DAILY 10/04/17 [Vitamin D3] Levomefolate/B6/B12/Algal Oil 1 ea PO DAILY 10/04/17 [Metanx Capsule] Nortriptyline HCl 50 mg PO QHS 10/04/17 Biotin 1 mg PO DAILY 04/01/18 Desonide 0.05% [Desowen 0.05% 1 applic TOPICAL BID 04/01/18 Cream] Diflorasone Diacetate [Psorcon] 1 applicatio TP BID PRN 04/01/18 Insulin Glargine,Hum.rec.anlog 20 unit SQ QHS 04/01/18 [Basaglar Kwikpen U-100] Insulin Lispro [Humalog KwikPen] See Protocol SQ TIDCM 04/01/18 Ketoconazole [Nizoral] 1 applic TOPICAL DAILY PRN 04/01/18 Magnesium 250 mg PO DAILY 04/01/18 metoprolol tartrate 25 mg tablet 12.5 mg PO BID tab MDD 1.5 tabs 07/19/18 lisinopril 5 mg tablet 5 mg PO QDAY #30 tab 03/19/19 albuterol sulfate 90 mcg/actuation 2 puff INHALATION Q4H PRN g 08/13/19 aerosol inhaler amlodipine 10 mg tablet 10 mg PO DAILY 08/13/19 becaplermin 0.01 % topical gel 1 applic TOPICAL DAILY 08/13/19 cetirizine 10 mg tablet 10 mg PO DAILY 08/13/19 gabapentin 300 mg capsule 900 mg PO TID cap 08/13/19 nifedipine 30 mg tablet,extended 30 mg PO DAILY 08/13/19 release simvastatin 10 mg tablet 10 mg PO QHS 08/13/19 vardenafil 20 mg tablet 20 mg PO DAILY PRN 08/13/19 Cyanocobalamin [Vitamin B12] 1,000 mcg IM Q30D 08/22/19 aspirin 81 mg tablet,delayed 162 mg PO DAILY tab MDD . 10/12/19 release baclofen 20 mg tablet 30 mg PO TID tab 10/12/19 cephalexin 500 mg capsule 500 mg PO Q6H cap 10/12/19 famotidine 20 mg tablet 20 mg PO DAILY PRN 10/12/19 furosemide 20 mg tablet 20 mg PO BID PRN tab 10/12/19 Maternal Family History: Family History (Last Reviewed 10/18/19 @ 11:24 by Linda Leon) Other Arthritis Hypertension Family History: Diabetes Paternal Family History: Family History (Last Reviewed 10/18/19 @ 11:24 by Linda Leon) Other Arthritis Hypertension Family History: Diabetes Smoking Status: Former smoker Physical Exam Vital Signs Temp Pulse Resp BP 98.0 F 81 18 121/76 H 12/20/19 14:47 12/20/19 14:47 12/20/19 14:47 12/20/19 14:47 General: Alert, Oriented x3, Cooperative, No apparent distress HEENT: Atraumatic, PERRLA, EOMI, TM's Clear, - - Bilateral tympanostomy tubes present Lungs: Clear to auscultation, Normal air movement, No rhonchi, No wheeze Cardiovascular: Regular rate, Regular Rhythm, Normal S1, Normal S2, No murmurs Psych/Mental Status: Normal Affect, Appropriate, Alert and oriented to time, place, person, mood and affect Assessment/Plan Active Problems (Last Reviewed 10/18/19 @ 11:24 by Linda Leon) 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 capsular layer is in the wound bed. grade 3 Delayed wound healing (Chronic) Malnutrition (Chronic) Type 2 diabetes mellitus with diabetic polyneuropathy (Chronic) The patient tolerated hyperbaric oxygen therapy session #2 well without any issues at this time. Continue with current plan of care.
[2019-12-24 10:10] LABS: Bedside Glucose 107 mg/dL (70-110)
[2019-12-24 10:46] LABS: Bedside Glucose 137 mg/dL (70-110)
[2019-12-24 11:19] VITALS: BP 113/68; BP 122/75; PULSE 73; PULSE 87; RESP 16; RESP 18; TEMP 36.4; TEMP 36.7
[2019-12-24 12:35] LABS: Bedside Glucose 102 mg/dL (70-110)
--- NOTE | 2019-12-24 13:09 | PCM.HBO.PN ---
History of Present Illness Date of Service: 12/24/19 Presenting Chief Complaint: Left foot ulcer RICK GEORGE Jr. is a 59 year old currently undergoing hyperbaric oxygen therapy for left plantar Rousseau grade 3 DFU. Progress: Today represents the 3rd hyperbaric oxygen therapy treatment and a planned 40 sessions. Tolerance of hyperbaric oxygen therapy: Hyperbaric oxygen treatment was provided as per the facility's protocol at 2.0 VINNY and 100% oxygen for 90 minutes. The patient tolerated hyperbaric oxygen well, without complications or complaints. Upon emergence of the hyperbaric chamber the patient's vital signs remained stable. The patient did have barotrauma that occurred to the bilateral TMs after his first HBO treatment and therefore he received bilateral tympanostomy tubes on 12/20/2019. The patient denies any discomfort or pain. See documented blood glucose levels. 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 capsular layer is in the wound bed. 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 Zhu of [facility] Essential (primary) hypertension (Chronic) Other specified peripheral vascular diseases (Chronic) Skin ulcer of finger with fat layer exposed (Chronic) Right Index Finger 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) Allergies/Adverse Reactions: Allergies atorvastatin Adverse Reaction (Verified 08/23/19 12:36) Unknown metformin Adverse Reaction (Verified 08/23/19 12:36) Diarrhea Home Medications: Ambulatory Orders Medication Instructions Recorded Ammonium Lactate [Amlactin] 57 gm TP PRN PRN 10/04/17 Celecoxib [Celebrex] 200 mg PO DAILY 10/04/17 Cholecalciferol (Vitamin D3) 5,000 unit PO DAILY 10/04/17 [Vitamin D3] Levomefolate/B6/B12/Algal Oil 1 ea PO DAILY 10/04/17 [Metanx Capsule] Nortriptyline HCl 50 mg PO QHS 10/04/17 Biotin 1 mg PO DAILY 04/01/18 Desonide 0.05% [Desowen 0.05% 1 applic TOPICAL BID 04/01/18 Cream] Diflorasone Diacetate [Psorcon] 1 applicatio TP BID PRN 04/01/18 Insulin Glargine,Hum.rec.anlog 20 unit SQ QHS 04/01/18 [Basaglar Kwikpen U-100] Insulin Lispro [Humalog KwikPen] See Protocol SQ TIDCM 04/01/18 Ketoconazole [Nizoral] 1 applic TOPICAL DAILY PRN 04/01/18 Magnesium 250 mg PO DAILY 04/01/18 metoprolol tartrate 25 mg tablet 12.5 mg PO BID tab MDD 1.5 tabs 07/19/18 lisinopril 5 mg tablet 5 mg PO QDAY #30 tab 03/19/19 albuterol sulfate 90 mcg/actuation 2 puff INHALATION Q4H PRN g 08/13/19 aerosol inhaler amlodipine 10 mg tablet 10 mg PO DAILY 08/13/19 becaplermin 0.01 % topical gel 1 applic TOPICAL DAILY 08/13/19 cetirizine 10 mg tablet 10 mg PO DAILY 08/13/19 gabapentin 300 mg capsule 900 mg PO TID cap 08/13/19 nifedipine 30 mg tablet,extended 30 mg PO DAILY 08/13/19 release simvastatin 10 mg tablet 10 mg PO QHS 08/13/19 vardenafil 20 mg tablet 20 mg PO DAILY PRN 08/13/19 Cyanocobalamin [Vitamin B12] 1,000 mcg IM Q30D 08/22/19 aspirin 81 mg tablet,delayed 162 mg PO DAILY tab MDD . 10/12/19 release baclofen 20 mg tablet 30 mg PO TID tab 10/12/19 cephalexin 500 mg capsule 500 mg PO Q6H cap 10/12/19 famotidine 20 mg tablet 20 mg PO DAILY PRN 10/12/19 furosemide 20 mg tablet 20 mg PO BID PRN tab 10/12/19 Maternal Family History: Family History (Last Reviewed 10/18/19 @ 11:24 by Linda Leon) Other Arthritis Hypertension Family History: Diabetes Paternal Family History: Family History (Last Reviewed 10/18/19 @ 11:24 by Linda Leon) Other Arthritis Hypertension Family History: Diabetes Smoking Status: Former smoker Physical Exam Vital Signs Temp Pulse Resp BP 98.1 F 87 18 122/75 H 12/24/19 11:19 12/24/19 11:19 12/24/19 11:19 12/24/19 11:19 General: Alert, Oriented x3, Cooperative HEENT: Atraumatic, - - bilateral tympanostomy tubes Lungs: Clear to auscultation, Normal air movement Cardiovascular: Regular rate Psych/Mental Status: Normal Affect, Flat Affect Assessment/Plan Active Problems (Last Reviewed 10/18/19 @ 11:24 by Linda Leon) 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 capsular layer is in the wound bed. grade 3 Delayed wound healing (Chronic) Malnutrition (Chronic) Type 2 diabetes mellitus with diabetic polyneuropathy (Chronic) The patient tolerated hyperbaric oxygen therapy session #3 well without any issues at this time. Continue with current plan of care. [id number]
[2019-12-25 09:56] LABS: Bedside Glucose 79 mg/dL (70-110)
[2019-12-25 10:30] LABS: Bedside Glucose 163 mg/dL (70-110)
[2019-12-25 10:47] VITALS: BP 115/70; BP 97/64; PULSE 70; PULSE 81; RESP 16; RESP 18; TEMP 36.4; TEMP 36.6
[2019-12-25 12:46] LABS: Bedside Glucose 84 mg/dL (70-110)
--- NOTE | 2019-12-25 12:49 | HBO.PN.PCM_ITS ---
History of Present Illness Date of Service: 12/25/19 Presenting Chief Complaint: Left foot ulcer RICK GEORGE Jr. is a 59 year old currently undergoing hyperbaric oxygen therapy for left plantar Rousseau grade 3 DFU. Progress: Today represents the 4th hyperbaric oxygen therapy treatment and a planned 40 sessions. Tolerance of hyperbaric oxygen therapy: Hyperbaric oxygen treatment was provided as per the facility's protocol at 2.0 VINNY and 100% oxygen for 90 minutes. The patient tolerated hyperbaric oxygen well, without complications or complaints. Upon emergence of the hyperbaric chamber the patient's vital signs remained stable. The patient did have barotrauma that occurred to the bilateral TMs a fter his first HBO treatment and therefore he received bilateral tympanostomy tubes on 12/20/2019. The patient denies any discomfort or pain. See documented blood glucose levels. 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 Zhu of [facility] Essential (primary) hypertension (Chronic) Other specified peripheral vascular diseases (Chronic) Skin ulcer of finger with fat layer exposed (Chronic) Right Index Finger 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) Allergies/Adverse Reactions: Allergies atorvastatin Adverse Reaction (Verified 08/23/19 12:36) Unknown metformin Adverse Reaction (Verified 08/23/19 12:36) Diarrhea Home Medications: Ambulatory Orders Medication Instructions Recorded Ammonium Lactate [Amlactin] 57 gm TP PRN PRN 10/04/17 Celecoxib [Celebrex] 200 mg PO DAILY 10/04/17 Cholecalciferol (Vitamin D3) 5,000 unit PO DAILY 10/04/17 [Vitamin D3] Levomefolate/B6/B12/Algal Oil 1 ea PO DAILY 10/04/17 [Metanx Capsule] Nortriptyline HCl 50 mg PO QHS 10/04/17 Biotin 1 mg PO DAILY 04/01/18 Desonide 0.05% [Desowen 0.05% 1 applic TOPICAL BID 04/01/18 Cream] Diflorasone Diacetate [Psorcon] 1 applicatio TP BID PRN 04/01/18 Insulin Glargine,Hum.rec.anlog 20 unit SQ QHS 04/01/18 [Basaglar Kwikpen U-100] Insulin Lispro [Humalog KwikPen] See Protocol SQ TIDCM 04/01/18 Ketoconazole [Nizoral] 1 applic TOPICAL DAILY PRN 04/01/18 Magnesium 250 mg PO DAILY 04/01/18 metoprolol tartrate 25 mg tablet 12.5 mg PO BID tab MDD 1.5 tabs 07/19/18 lisinopril 5 mg tablet 5 mg PO QDAY #30 tab 03/19/19 albuterol sulfate 90 mcg/actuation 2 puff INHALATION Q4H PRN g 08/13/19 aerosol inhaler amlodipine 10 mg tablet 10 mg PO DAILY 08/13/19 becaplermin 0.01 % topical gel 1 applic TOPICAL DAILY 08/13/19 cetirizine 10 mg tablet 10 mg PO DAILY 08/13/19 gabapentin 300 mg capsule 900 mg PO TID cap 08/13/19 nifedipine 30 mg tablet,extended 30 mg PO DAILY 08/13/19 release simvastatin 10 mg tablet 10 mg PO QHS 08/13/19 vardenafil 20 mg tablet 20 mg PO DAILY PRN 08/13/19 Cyanocobalamin [Vitamin B12] 1,000 mcg IM Q30D 08/22/19 aspirin 81 mg tablet,delayed 162 mg PO DAILY tab MDD . 10/12/19 release baclofen 20 mg tablet 30 mg PO TID tab 10/12/19 cephalexin 500 mg capsule 500 mg PO Q6H cap 10/12/19 famotidine 20 mg tablet 20 mg PO DAILY PRN 10/12/19 furosemide 20 mg tablet 20 mg PO BID PRN tab 10/12/19 Maternal Family History: Family History (Last Reviewed 10/18/19 @ 11:24 by Linda Leon) Other Arthritis Hypertension Family History: Diabetes Paternal Family History: Family History (Last Reviewed 10/18/19 @ 11:24 by Linda Leon) Other Arthritis Hypertension Family History: Diabetes Smoking Status: Former smoker Physical Exam Vital Signs Temp Pulse Resp BP 97.8 F 81 18 115/70 12/25/19 10:47 12/25/19 10:47 12/25/19 10:47 12/25/19 10:47 General: Alert, Oriented x3, Cooperative, No apparent distress HEENT: Atraumatic, TM's Clear Lungs: Clear to auscultation, Normal air movement Cardiovascular: Regular rate, Regular Rhythm Psych/Mental Status: Normal Affect, Appropriate, Alert and oriented to time, place, person, mood and affect Assessment/Plan Active Problems (Last Reviewed 10/18/19 @ 11:24 by Linda Leon) Tobacco abuse (Chronic) Raynaud disease (Chronic) 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 grade 3 treated medically Delayed wound healing (Chronic) Malnutrition (Chronic) Type 2 diabetes mellitus with diabetic polyneuropathy (Chronic) The patient tolerated hyperbaric oxygen therapy session #3 well without any issues at this time. Continue with current plan of care.
[2019-12-26 08:50] LABS: Bedside Glucose 160 mg/dL (70-110)
[2019-12-26 09:06] VITALS: BP 102/67; BP 128/80; PULSE 79; PULSE 80; RESP 16; RESP 18; TEMP 36.5
[2019-12-26 11:00] LABS: Bedside Glucose 114 mg/dL (70-110)
--- NOTE | 2019-12-26 11:04 | HBO.PN.PCM_ITS ---
History of Present Illness Date of Service: 12/26/19 Presenting Chief Complaint: Left foot ulcer RICK GEORGE Jr. is a 59 year old currently undergoing hyperbaric oxygen therapy for left plantar Rousseau grade 3 DFU. Progress: Today represents the 5th hyperbaric oxygen therapy treatment and a planned 40 sessions. Tolerance of hyperbaric oxygen therapy: Hyperbaric oxygen treatment was provided as per the facility's protocol at 2.0 VINNY and 100% oxygen for 90 minutes. The patient tolerated hyperbaric oxygen well, without complications or complaints. Upon emergence of the hyperbaric chamber the patient's vital signs remained stable. The patient did have barotrauma that occurred to the bilateral TMs a fter his first HBO treatment and therefore he received bilateral tympanostomy tubes on 12/20/2019. The patient denies any discomfort or pain. See documented blood glucose levels. 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 Zhu of [facility] Essential (primary) hypertension (Chronic) Other specified peripheral vascular diseases (Chronic) Skin ulcer of finger with fat layer exposed (Chronic) Right Index Finger 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) Allergies/Adverse Reactions: Allergies atorvastatin Adverse Reaction (Verified 08/23/19 12:36) Unknown metformin Adverse Reaction (Verified 08/23/19 12:36) Diarrhea Home Medications: Ambulatory Orders Medication Instructions Recorded Ammonium Lactate [Amlactin] 57 gm TP PRN PRN 10/04/17 Celecoxib [Celebrex] 200 mg PO DAILY 10/04/17 Cholecalciferol (Vitamin D3) 5,000 unit PO DAILY 10/04/17 [Vitamin D3] Levomefolate/B6/B12/Algal Oil 1 ea PO DAILY 10/04/17 [Metanx Capsule] Nortriptyline HCl 50 mg PO QHS 10/04/17 Biotin 1 mg PO DAILY 04/01/18 Desonide 0.05% [Desowen 0.05% 1 applic TOPICAL BID 04/01/18 Cream] Diflorasone Diacetate [Psorcon] 1 applicatio TP BID PRN 04/01/18 Insulin Glargine,Hum.rec.anlog 20 unit SQ QHS 04/01/18 [Basaglar Kwikpen U-100] Insulin Lispro [Humalog KwikPen] See Protocol SQ TIDCM 04/01/18 Ketoconazole [Nizoral] 1 applic TOPICAL DAILY PRN 04/01/18 Magnesium 250 mg PO DAILY 04/01/18 metoprolol tartrate 25 mg tablet 12.5 mg PO BID tab MDD 1.5 tabs 07/19/18 lisinopril 5 mg tablet 5 mg PO QDAY #30 tab 03/19/19 albuterol sulfate 90 mcg/actuation 2 puff INHALATION Q4H PRN g 08/13/19 aerosol inhaler amlodipine 10 mg tablet 10 mg PO DAILY 08/13/19 becaplermin 0.01 % topical gel 1 applic TOPICAL DAILY 08/13/19 cetirizine 10 mg tablet 10 mg PO DAILY 08/13/19 gabapentin 300 mg capsule 900 mg PO TID cap 08/13/19 nifedipine 30 mg tablet,extended 30 mg PO DAILY 08/13/19 release simvastatin 10 mg tablet 10 mg PO QHS 08/13/19 vardenafil 20 mg tablet 20 mg PO DAILY PRN 08/13/19 Cyanocobalamin [Vitamin B12] 1,000 mcg IM Q30D 08/22/19 aspirin 81 mg tablet,delayed 162 mg PO DAILY tab MDD . 10/12/19 release baclofen 20 mg tablet 30 mg PO TID tab 10/12/19 cephalexin 500 mg capsule 500 mg PO Q6H cap 10/12/19 famotidine 20 mg tablet 20 mg PO DAILY PRN 10/12/19 furosemide 20 mg tablet 20 mg PO BID PRN tab 10/12/19 Maternal Family History: Family History (Last Reviewed 10/18/19 @ 11:24 by Linda Leon) Other Arthritis Hypertension Family History: Diabetes Paternal Family History: Family History (Last Reviewed 10/18/19 @ 11:24 by Linda Leon) Other Arthritis Hypertension Family History: Diabetes Smoking Status: Former smoker Physical Exam Vital Signs Temp Pulse Resp BP 97.7 F L 80 18 128/80 H 12/26/19 09:06 12/26/19 09:06 12/26/19 09:06 12/26/19 09:06 Assessment/Plan Active Problems (Last Reviewed 10/18/19 @ 11:24 by Linda Leon) Tobacco abuse (Chronic) Raynaud disease (Chronic) 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 grade 3 treated medically Delayed wound healing (Chronic) Malnutrition (Chronic) Type 2 diabetes mellitus with diabetic polyneuropathy (Chronic) The patient tolerated hyperbaric oxygen therapy session #5 well without any issues at this time. Continue with current plan of care.
[2019-12-26 11:56] VITALS: BP 102/67; PULSE 79; RESP 18; TEMP 36.5; BMI 28.7
--- NOTE | 2019-12-26 13:18 | PN.PCM_ITS ---
(1) Chronic ulcer of left foot with necrosis of muscle Status: Chronic Current Visit: Yes Code(s): L97.523 - Non-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ulcer of other part of left foot with necrosis of muscle Comment: capsular layer is in the wound bed. grade 3 treated medically (2) Delayed wound healing Status: Chronic Current Visit: Yes Code(s): T14.8XXD - Other injury of unspecified body region, subsequent encounter (3) Malnutrition Status: Chronic Current Visit: Yes Code(s): E46 - Unspecified protein- calorie malnutrition (4) Type 2 diabetes mellitus with diabetic polyneuropathy Status: Chronic Current Visit: Yes Code(s): E11.42 - Type 2 diabetes mellitus with diabetic polyneuropathy (5) Tobacco abuse Status: Chronic Current Visit: Yes Code(s): Z72.0 - Tobacco use (6) Raynaud disease Status: Chronic Current Visit: Yes Code(s): I73.00 - Raynaud's syndrome without gangrene Type of Wound Date of Service: 12/26/19 Chief Complaint: Left foot ulcer History of Wound: Mr. Espinoza is a 59-year-old male with a significant past medical history as stated above who is well-known to the wound center. He also recently saw vascular surgery who did not recommend additional intervention at this time. He also had an MRI to rule out osteomyelitis due to the recent increase in ulcer depth which was negative. He denies fever, chill, nausea, vomiting, loss of appetite or pain to the foot. He had a deteriorating station of the ulcer with bacterial colonization and this was now progressed to a Rousseau grade 3. He completed a course of antibiotics as advised. He is started the process of hyperbaric oxygen therapy. He is amendable to proceed with epi-fix and total contact cast application today in addition hyperbaric oxygen therapy. He saw an ears nose and throat specialist and had tubes placed. It is noted he is chewing tobacco again today and relates he has done this since the fourth grade. Progress of Wound: Improving - Physical Exam Vital Signs Temp Pulse Resp BP 97.7 F L 79 18 102/67 12/26/19 11:56 12/26/19 11:56 12/26/19 11:56 12/26/19 11:56 General: Alert, Oriented x3, Cooperative, No apparent distress Extremities: No cyanosis, Capillary Refill Less than 3 Seconds, No Calf Tenderness, Diminished Peripheral Pulses, Edema Skin: Ulcer/ Wound - No purulence, erythema, streaking, odor, infection. The skin is atrophic and hairless. There is reduced depth to the ulcer site Wound Measurements and Assessment WC - Nurse 1 - General Ulcer Measurement Start: 12/19/19 10:41 Freq: Status: Active Protocol: Activity Type Activity Date Activity User E-Sign Co-Sign Detail Recorded Client Recorded Date Recorded By Document 12/26/19 11:56 RB [id number] 12/26/19 11:58 RB 12/26/19 11:56 Wound Center Nurse 1 [Ulcer Assessment] 11. L plantar -Combined with other wound No -Current Size (cm) - Length 1.5 -Current Size (cm) - Width 1.2 -Current Size (cm) - Depth 0.3 -Total Square Cm 1.80 -Tunneling No -Undermining/Tunneling Yes -Undermining/Tunneling Starts (O' 12 clock) -Undermining/Tunneling Ends (O'clock) 12 -Maximum Distance (cm) 0.3 -Circular Undermining Yes -Exudate Amt Medium -Exudate Type Serosanguineous -Wound Margin Thickened -Granulation Amt Medium (34-66%) -Granulation Quality [place] -Slough/Fibrin Yes -Necrosis Amt Small (1-33%) -Necrotic Tissue Type Adherent Slough -Structure Exposed N/A -Texture (Mechelle-wound Skin Appearance) Callus -Moisture (Mechelle-wound Skin Appearance Assessed ) -Color ([place]helle-wound Skin Appearance) Assessed -Temperature ([place]helle-wound Skin No Abnormality Appearance) (Pt Warm) -Tenderness on Palpation ([place]helle-wound No Skin Appearance) -Ulcer Cleansing Wound Cleanser -Foul Odor after Cleansing No -Anesthetic Used 5% Lidocaine Gel WC - Nurse 2 - General Ulcer CM Notes Start: 12/19/19 10:41 Freq: Status: Active Protocol: Activity Type Activity Date Activity User E-Sign Co-Sign Detail Recorded Client Recorded Date Recorded By Document 12/26/19 12:06 MARJORIE [id number] 12/26/19 12:08 MARJORIE 12/26/19 12:06 Wound Center Nurse 2 [Procedure/Treatment] -Time 12:07 -Correct Patient Yes -Correct Side, Site, Position Yes -Correct Procedure Yes -Procedure Performed Yes -Type of Procedure Debridement -Clinical Debridement Subcutaneous -Post Debridement Size (cm) - Length 1.5 -Post Debridement Size (cm) - Width 1.3 -Post Debridement Size (cm) - Depth 0.3 -Total Square Cm 1.95 -Wound/Ulcer Outcome Not Healed -Ulcer Cleansing Rinsed/ Irrigated with Saline -Foul Odor after Cleansing No -Bioengineered Tissue Yes -Type of bioengineered Tissue EPIFIX -Expiration Date 08/17/24 -Product Lot Number [id number] -Percent Used 100 -Saline Lot Number [id number] -Bleeding Controlled with Pressure -Offloading Yes -Type of Offloading Total Contact Cast (TCC) -Treatment Response Procedure Tolerated Well [See Physician Procedure note for Specifics] Pain Scale: 0-10 Numeric [Pain] -Is Patient Pain Free? Yes Musculoskeletal: No Tenderness to Palpation of Joints or Extremities, Muscle Wasting Neurological: - - Lack of normal epicritic sensation light touch is consistent with neuropathy status Psych/Mental Status: Normal Affect, Appropriate Debridement Note Post-Debridement Measurements/Treatment WC - Nurse 2 - General Ulcer CM Notes Start: 12/19/19 10:41 Freq: Status: Active Protocol: Activity Type Activity Date Activity User E-Sign Co-Sign Detail Recorded Client Recorded Date Recorded By Document 12/19/19 11:09 [id number] 12/19/19 11:10 Document 12/26/19 12:06 [email or web address] 12/26/19 12:08 12/19/19 12/26/19 11:09 12:06 Wound Center Nurse 2 11. L plantar -Time 11:09 12:07 -Correct Patient Yes Yes -Correct Side, Site, Position Yes Yes -Correct Procedure Yes Yes -Procedure Performed Yes Yes -Type of Procedure Debridement Debridement -Clinical Debridement Subcutaneous Subcutaneous -Post Debridement Size (cm) - Length 1.6 1.5 -Post Debridement Size (cm) - Width 1.4 1.3 -Post Debridement Size (cm) - Depth 0.3 0.3 -Total Square Cm 2.24 1.95 -Wound/Ulcer Outcome Not Healed Not Healed -Ulcer Cleansing Rinsed/ Rinsed/ Irrigated with Irrigated with Saline Saline -Foul Odor after Cleansing No No -Bioengineered Tissue Yes Yes -Type of bioengineered Tissue EPIFIX EPIFIX -Expiration Date 08/17/24 08/17/24 -Product Lot Number [id number] -Percent Used 100 100 -Saline Lot Number [id number] -Bleeding Controlled with Pressure Pressure -Offloading Yes Yes -Type of Offloading [place] Total Contact Cast (TCC) -Treatment Response Procedure Procedure Tolerated Well Tolerated Well Pain Scale: 0-10 Numeric Is Patient Pain Free? Yes Yes Wound debrided: sub 4 metatarsal head Laterality: Left Wound Grade/Stage: grade 3 Type of Debridement: Excisional debridement Anesthesia Used: 5% Lidocaine Gel Depth: in the subcutaneous layer Percentage of wound debrided: 100 Instrument Used: #15 blade Tissue Removed: fibrous, devitalized subcutaneous, biofilm, slough Severity: Fat Layer Exposed Amount of bleeding with debridement: Mild Bleeding Controlled with: Pressure Patient tolerated procedure well Assessment/Plan Active Problems (Last Reviewed 10/18/19 @ 11:24 by Linda Leon) Tobacco abuse (Chronic) Raynaud disease (Chronic) 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 grade 3 treated medically Delayed wound healing (Chronic) Malnutrition (Chronic) Type 2 diabetes mellitus with diabetic polyneuropathy (Chronic) Assessment: Left foot ulcer with capsule/muscle tissue exposed, Rousseau grade 3 treated for infection/bacterial colonization. Left foot deformities including tailor bunion and hammertoe. Peripheral vascular disease. Diabetes with bao yneuropathy. Malnutrition. Delayed healing. Raynaud's disease. Poor diet. Continued tobacco use Plan: I reviewed and discussed his case today. Subcutaneous excisional de bridement was performed as noted in the clinical panel to left foot. He has completed oral antibiotics including Augmentin and ciprofloxacin based off of his prior culture results and appears to be doing better. I recommend application of advanced wound healing product this week, epi-fix. This was applied according to standard protocol 100% of the product was performed. This is medically necessary for limb salvage. He understands the indications, planned application, anticipated healing time and management. He tolerated this well. He was advised to keep his dressing clean, dry, and intact until follow- up next week. After he emerged from the hyperbaric oxygen therapy chamber, an additional well-padded total contact cast was applied with the affected limb in neutral position. He was also advised to keep this clean dry and intact and to avoid walking on this. To continue proper glycemic control nutritional supplementation optimize healing. Is noted his last hemoglobin A1c we have on file here is 5.9%. This is a chronic ulceration has been present for approximately over 1 year. I recommend application of advanced wound healing product. He was advised to follow-up with his vascular surgeon, Dr. Pena as scheduled. He had recent updated vascular studies performed and Dr. Pena is considering additional intervention. I recommend proceeding if there are options available. Due to the increased depth he did also go through a recent osteomyelitis work-up. Osteomyelitis signs were not apparent on the MRI and this will be monitored very closely. Compliance was discussed. He was reassured there are no local signs of infection on the foot today. I answered his questions. He had prior capsule muscle tissue exposed and that further was infected per his culture results which would qualify and is awaiting grade 3. Hyperbaric oxygen therapy is an option for him and this will be discussed. His recent echocardiogram is noted from August 2019 in which she had an ejection fraction of 56%. He also has updated lab work which was reviewed from August 2019. A chest x-ray was ordered at this time for pre-hyperbaric safety screening. He is started the sessions and has some recent ear inflammation. He will meet with search engine marketing specialist for potential tube placement tomorrow. The indication, benefits, risk, complications, anticipated management were reviewed with him today. I answered his questions. We also discussed surgical intervention such as fourth metatarsal head resection. He relates he would not be able to stay off of it to allow healing. 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 Advised on moving forward with surgical intervention if he is able to allow healing in the postoperative setting. Other options include going on a complex palliative type of the plan. He would like more time to think about this. Tobacco cessation was reviewed and this is imperative for his healing potential. He has ray nods and ongoing delayed and nonhealing ulcers of his feet and hands. I also urged him to take his nutrition status more serious. Not only does he have uncontrolled diabetes he also suffers from cardiac disease and other medical comorbidities. I advised him to avoid excessive salt use. I also offered him a nutrition referral. To return to the wound healing center in 1 week or call sooner if he has any questions or concerns.
[2019-12-27 10:06] LABS: Bedside Glucose 207 mg/dL (70-110)
[2019-12-27 10:33] VITALS: BP 106/74; BP 117/62; PULSE 69; PULSE 82; RESP 16; RESP 18; TEMP 36.3; TEMP 36.4
[2019-12-27 12:21] LABS: Bedside Glucose 142 mg/dL (70-110)
[2019-12-31 09:55] LABS: Bedside Glucose 214 mg/dL (70-110)
--- NOTE | 2019-12-31 11:55 | HBO.PN.PCM_ITS ---
History of Present Illness Date of Service: 12/27/19 Presenting Chief Complaint: Left foot ulcer RICK GEORGE Jr. is a 59 year old currently undergoing hyperbaric oxygen therapy for left plantar Rousseau grade 3 DFU. Progress: Today represents the 6th hyperbaric oxygen therapy treatment and a planned 40 sessions. Tolerance of hyperbaric oxygen therapy: Hyperbaric oxygen treatment was provided as per the facility's protocol at 2.0 VINNY and 100% oxygen for 90 minutes. The patient tolerated hyperbaric oxygen well, without complications or complaints. Upon emergence of the hyperbaric chamber the patient's vital signs remained stable. The patient did have barotrauma that occurred to the bilateral TMs a fter his first HBO treatment and therefore he received bilateral tympanostomy tubes on 12/20/2019. The patient denies any discomfort or pain. See documented blood glucose levels. 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 Zhu of [facility] Essential (primary) hypertension (Chronic) Other specified peripheral vascular diseases (Chronic) Skin ulcer of finger with fat layer exposed (Chronic) Right Index Finger 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) Allergies/Adverse Reactions: Allergies atorvastatin Adverse Reaction (Verified 08/23/19 12:36) Unknown metformin Adverse Reaction (Verified 08/23/19 12:36) Diarrhea Home Medications: Ambulatory Orders Medication Instructions Recorded Ammonium Lactate [Amlactin] 57 gm TP PRN PRN 10/04/17 Celecoxib [Celebrex] 200 mg PO DAILY 10/04/17 Cholecalciferol (Vitamin D3) 5,000 unit PO DAILY 10/04/17 [Vitamin D3] Levomefolate/B6/B12/Algal Oil 1 ea PO DAILY 10/04/17 [Metanx Capsule] Nortriptyline HCl 50 mg PO QHS 10/04/17 Biotin 1 mg PO DAILY 04/01/18 Desonide 0.05% [Desowen 0.05% 1 applic TOPICAL BID 04/01/18 Cream] Diflorasone Diacetate [Psorcon] 1 applicatio TP BID PRN 04/01/18 Insulin Glargine,Hum.rec.anlog 20 unit SQ QHS 04/01/18 [Basaglar Kwikpen U-100] Insulin Lispro [Humalog KwikPen] See Protocol SQ TIDCM 04/01/18 Ketoconazole [Nizoral] 1 applic TOPICAL DAILY PRN 04/01/18 Magnesium 250 mg PO DAILY 04/01/18 metoprolol tartrate 25 mg tablet 12.5 mg PO BID tab MDD 1.5 tabs 07/19/18 lisinopril 5 mg tablet 5 mg PO QDAY #30 tab 03/19/19 albuterol sulfate 90 mcg/actuation 2 puff INHALATION Q4H PRN g 08/13/19 aerosol inhaler amlodipine 10 mg tablet 10 mg PO DAILY 08/13/19 becaplermin 0.01 % topical gel 1 applic TOPICAL DAILY 08/13/19 cetirizine 10 mg tablet 10 mg PO DAILY 08/13/19 gabapentin 300 mg capsule 900 mg PO TID cap 08/13/19 nifedipine 30 mg tablet,extended 30 mg PO DAILY 08/13/19 release simvastatin 10 mg tablet 10 mg PO QHS 08/13/19 vardenafil 20 mg tablet 20 mg PO DAILY PRN 08/13/19 Cyanocobalamin [Vitamin B12] 1,000 mcg IM Q30D 08/22/19 aspirin 81 mg tablet,delayed 162 mg PO DAILY tab MDD . 10/12/19 release baclofen 20 mg tablet 30 mg PO TID tab 10/12/19 cephalexin 500 mg capsule 500 mg PO Q6H cap 10/12/19 famotidine 20 mg tablet 20 mg PO DAILY PRN 10/12/19 furosemide 20 mg tablet 20 mg PO BID PRN tab 10/12/19 Maternal Family History: Family History (Last Reviewed 10/18/19 @ 11:24 by Linda Leon) Other Arthritis Hypertension Family History: Diabetes Paternal Family History: Family History (Last Reviewed 10/18/19 @ 11:24 by Linda Leon) Other Arthritis Hypertension Family History: Diabetes Smoking Status: Former smoker Physical Exam Vital Signs Temp Pulse Resp BP 97.6 F L 82 18 117/62 12/27/19 10:33 12/27/19 10:33 12/27/19 10:33 12/27/19 10:33 General: Alert, Oriented x3, Cooperative, No apparent distress HEENT: Atraumatic, TM's Clear Lungs: Clear to auscultation, Normal air movement Cardiovascular: Regular rate, Regular Rhythm Psych/Mental Status: Normal Affect, Appropriate, Alert and oriented to time, place, person, mood and affect Assessment/Plan Active Problems (Last Reviewed 10/18/19 @ 11:24 by Linda Leon) Tobacco abuse (Chronic) Raynaud disease (Chronic) 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 grade 3 treated medically Delayed wound healing (Chronic) Malnutrition (Chronic) Type 2 diabetes mellitus with diabetic polyneuropathy (Chronic) The patient tolerated hyperbaric oxygen therapy session #5 well without any issues at this time. Continue with current plan of care.
--- NOTE | 2019-12-31 11:58 | HBO.PN.PCM_ITS ---
History of Present Illness Date of Service: 12/31/19 Presenting Chief Complaint: Left foot ulcer RICK GEORGE Jr. is a 59 year old currently undergoing hyperbaric oxygen therapy for left plantar Rousseau grade 3 DFU. Progress: Today represents the 7th hyperbaric oxygen therapy treatment and a planned 40 sessions. Tolerance of hyperbaric oxygen therapy: Hyperbaric oxygen treatment was provided as per the facility's protocol at 2.0 VINNY and 100% oxygen for 90 minutes. The patient tolerated hyperbaric oxygen well, without complications or complaints. Upon emergence of the hyperbaric chamber the patient's vital signs remained stable. The patient did have barotrauma that occurred to the bilateral TMs a fter his first HBO treatment and therefore he received bilateral tympanostomy tubes on 12/20/2019. The patient denies any discomfort or pain. See documented blood glucose levels. 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 Zhu of [facility] Essential (primary) hypertension (Chronic) Other specified peripheral vascular diseases (Chronic) Skin ulcer of finger with fat layer exposed (Chronic) Right Index Finger 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) Allergies/Adverse Reactions: Allergies atorvastatin Adverse Reaction (Verified 08/23/19 12:36) Unknown metformin Adverse Reaction (Verified 08/23/19 12:36) Diarrhea Home Medications: Ambulatory Orders Medication Instructions Recorded Ammonium Lactate [Amlactin] 57 gm TP PRN PRN 10/04/17 Celecoxib [Celebrex] 200 mg PO DAILY 10/04/17 Cholecalciferol (Vitamin D3) 5,000 unit PO DAILY 10/04/17 [Vitamin D3] Levomefolate/B6/B12/Algal Oil 1 ea PO DAILY 10/04/17 [Metanx Capsule] Nortriptyline HCl 50 mg PO QHS 10/04/17 Biotin 1 mg PO DAILY 04/01/18 Desonide 0.05% [Desowen 0.05% 1 applic TOPICAL BID 04/01/18 Cream] Diflorasone Diacetate [Psorcon] 1 applicatio TP BID PRN 04/01/18 Insulin Glargine,Hum.rec.anlog 20 unit SQ QHS 04/01/18 [Basaglar Kwikpen U-100] Insulin Lispro [Humalog KwikPen] See Protocol SQ TIDCM 04/01/18 Ketoconazole [Nizoral] 1 applic TOPICAL DAILY PRN 04/01/18 Magnesium 250 mg PO DAILY 04/01/18 metoprolol tartrate 25 mg tablet 12.5 mg PO BID tab MDD 1.5 tabs 07/19/18 lisinopril 5 mg tablet 5 mg PO QDAY #30 tab 03/19/19 albuterol sulfate 90 mcg/actuation 2 puff INHALATION Q4H PRN g 08/13/19 aerosol inhaler amlodipine 10 mg tablet 10 mg PO DAILY 08/13/19 becaplermin 0.01 % topical gel 1 applic TOPICAL DAILY 08/13/19 cetirizine 10 mg tablet 10 mg PO DAILY 08/13/19 gabapentin 300 mg capsule 900 mg PO TID cap 08/13/19 nifedipine 30 mg tablet,extended 30 mg PO DAILY 08/13/19 release simvastatin 10 mg tablet 10 mg PO QHS 08/13/19 vardenafil 20 mg tablet 20 mg PO DAILY PRN 08/13/19 Cyanocobalamin [Vitamin B12] 1,000 mcg IM Q30D 08/22/19 aspirin 81 mg tablet,delayed 162 mg PO DAILY tab MDD . 10/12/19 release baclofen 20 mg tablet 30 mg PO TID tab 10/12/19 cephalexin 500 mg capsule 500 mg PO Q6H cap 10/12/19 famotidine 20 mg tablet 20 mg PO DAILY PRN 10/12/19 furosemide 20 mg tablet 20 mg PO BID PRN tab 10/12/19 Maternal Family History: Family History (Last Reviewed 10/18/19 @ 11:24 by Linda Leon) Other Arthritis Hypertension Family History: Diabetes Paternal Family History: Family History (Last Reviewed 10/18/19 @ 11:24 by Linda Leon) Other Arthritis Hypertension Family History: Diabetes Smoking Status: Former smoker Physical Exam Vital Signs Temp Pulse Resp BP 97.6 F L 82 18 117/62 12/27/19 10:33 12/27/19 10:33 12/27/19 10:33 12/27/19 10:33 General: Alert, Oriented x3, Cooperative, No apparent distress HEENT: Atraumatic, TM's Clear Lungs: Clear to auscultation, Normal air movement Cardiovascular: Regular rate, Regular Rhythm Psych/Mental Status: Normal Affect, Appropriate, Alert and oriented to time, place, person, mood and affect Assessment/Plan Active Problems (Last Reviewed 10/18/19 @ 11:24 by Linda Leon) Tobacco abuse (Chronic) Raynaud disease (Chronic) 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 grade 3 treated medically Delayed wound healing (Chronic) Malnutrition (Chronic) Type 2 diabetes mellitus with diabetic polyneuropathy (Chronic) The patient tolerated hyperbaric oxygen therapy session #5 well without any issues at this time. Continue with current plan of care.
[2019-12-31 12:15] LABS: Bedside Glucose 138 mg/dL (70-110)
[2019-12-31 13:18] VITALS: BP 108/76; BP 109/69; PULSE 67; PULSE 74; RESP 16; RESP 18; TEMP 35.7; TEMP 36.4
[2020-01-01 10:00] LABS: Bedside Glucose 163 mg/dL (70-110)
[2020-01-01 10:33] VITALS: BP 112/68; BP 144/66; PULSE 73; PULSE 82; RESP 16; TEMP 36.1; TEMP 36.6
--- NOTE | 2020-01-01 11:16 | HBO.PN.PCM_ITS ---
History of Present Illness Date of Service: 01/01/20 Presenting Chief Complaint: Left foot ulcer RICK GEORGE Jr. is a 59 year old currently undergoing hyperbaric oxygen therapy for left plantar Rousseau grade 3 DFU. Progress: Today represents the 8th hyperbaric oxygen therapy treatment and a planned 40 sessions. Tolerance of hyperbaric oxygen therapy: Hyperbaric oxygen treatment was provided as per the facility's protocol at 2.0 VINNY and 100% oxygen for 90 minutes. The patient tolerated hyperbaric oxygen well, without complications or complaints. Upon emergence of the hyperbaric chamber the patient's vital signs remained stable. The patient did have barotrauma that occurred to the bilateral TMs a fter his first HBO treatment and therefore he received bilateral tympanostomy tubes on 12/20/2019. The patient denies any discomfort or pain. See documented blood glucose levels. 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 Zhu of [facility] Essential (primary) hypertension (Chronic) Other specified peripheral vascular diseases (Chronic) Skin ulcer of finger with fat layer exposed (Chronic) Right Index Finger 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) Allergies/Adverse Reactions: Allergies atorvastatin Adverse Reaction (Verified 08/23/19 12:36) Unknown metformin Adverse Reaction (Verified 08/23/19 12:36) Diarrhea Home Medications: Ambulatory Orders Medication Instructions Recorded Ammonium Lactate [Amlactin] 57 gm TP PRN PRN 10/04/17 Celecoxib [Celebrex] 200 mg PO DAILY 10/04/17 Cholecalciferol (Vitamin D3) 5,000 unit PO DAILY 10/04/17 [Vitamin D3] Levomefolate/B6/B12/Algal Oil 1 ea PO DAILY 10/04/17 [Metanx Capsule] Nortriptyline HCl 50 mg PO QHS 10/04/17 Biotin 1 mg PO DAILY 04/01/18 Desonide 0.05% [Desowen 0.05% 1 applic TOPICAL BID 04/01/18 Cream] Diflorasone Diacetate [Psorcon] 1 applicatio TP BID PRN 04/01/18 Insulin Glargine,Hum.rec.anlog 20 unit SQ QHS 04/01/18 [Basaglar Kwikpen U-100] Insulin Lispro [Humalog KwikPen] See Protocol SQ TIDCM 04/01/18 Ketoconazole [Nizoral] 1 applic TOPICAL DAILY PRN 04/01/18 Magnesium 250 mg PO DAILY 04/01/18 metoprolol tartrate 25 mg tablet 12.5 mg PO BID tab MDD 1.5 tabs 07/19/18 lisinopril 5 mg tablet 5 mg PO QDAY #30 tab 03/19/19 albuterol sulfate 90 mcg/actuation 2 puff INHALATION Q4H PRN g 08/13/19 aerosol inhaler amlodipine 10 mg tablet 10 mg PO DAILY 08/13/19 becaplermin 0.01 % topical gel 1 applic TOPICAL DAILY 08/13/19 cetirizine 10 mg tablet 10 mg PO DAILY 08/13/19 gabapentin 300 mg capsule 900 mg PO TID cap 08/13/19 nifedipine 30 mg tablet,extended 30 mg PO DAILY 08/13/19 release simvastatin 10 mg tablet 10 mg PO QHS 08/13/19 vardenafil 20 mg tablet 20 mg PO DAILY PRN 08/13/19 Cyanocobalamin [Vitamin B12] 1,000 mcg IM Q30D 08/22/19 aspirin 81 mg tablet,delayed 162 mg PO DAILY tab MDD . 10/12/19 release baclofen 20 mg tablet 30 mg PO TID tab 10/12/19 cephalexin 500 mg capsule 500 mg PO Q6H cap 10/12/19 famotidine 20 mg tablet 20 mg PO DAILY PRN 10/12/19 furosemide 20 mg tablet 20 mg PO BID PRN tab 10/12/19 Maternal Family History: Family History (Last Reviewed 10/18/19 @ 11:24 by Linda Leon) Other Arthritis Hypertension Family History: Diabetes Paternal Family History: Family History (Last Reviewed 10/18/19 @ 11:24 by Linda Leon) Other Arthritis Hypertension Family History: Diabetes Smoking Status: Former smoker Physical Exam Vital Signs Temp Pulse Resp BP 97.9 F 82 16 144/66 H 01/01/20 10:33 01/01/20 10:33 01/01/20 10:33 01/01/20 10:33 General: Alert, Oriented x3, Cooperative, No apparent distress HEENT: Atraumatic, TM's Clear Lungs: Clear to auscultation, Normal air movement Cardiovascular: Regular rate, Regular Rhythm Psych/Mental Status: Normal Affect, Appropriate, Alert and oriented to time, place, person, mood and affect Assessment/Plan Active Problems (Last Reviewed 10/18/19 @ 11:24 by Linda Leon) Tobacco abuse (Chronic) Raynaud disease (Chronic) 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 grade 3 treated medically Delayed wound healing (Chronic) Malnutrition (Chronic) Type 2 diabetes mellitus with diabetic polyneuropathy (Chronic) The patient tolerated hyperbaric oxygen therapy session #5 well without any issues at this time. Continue with current plan of care.
[2020-01-01 12:15] LABS: Bedside Glucose 93 mg/dL (70-110)
[2020-01-02 08:51] LABS: Bedside Glucose 197 mg/dL (70-110)
[2020-01-02 09:03] VITALS: BP 136/72; BP 95/65; PULSE 69; PULSE 84; RESP 16; RESP 18; TEMP 36.1; TEMP 36.5
[2020-01-02 11:11] LABS: Bedside Glucose 111 mg/dL (70-110)
--- NOTE | 2020-01-02 11:21 | HBO.PN.PCM_ITS ---
History of Present Illness Date of Service: 01/02/20 Presenting Chief Complaint: Left foot ulcer RICK GEORGE Jr. is a 59 year old currently undergoing hyperbaric oxygen therapy for left plantar Rousseau grade 3 DFU. Progress: Today represents the 9th hyperbaric oxygen therapy treatment and a planned 40 sessions. Tolerance of hyperbaric oxygen therapy: Hyperbaric oxygen treatment was provided as per the facility's protocol at 2.0 VINNY and 100% oxygen for 90 minutes. The patient tolerated hyperbaric oxygen well, without complications or complaints. Upon emergence of the hyperbaric chamber the patient's vital signs remained stable. The patient did have barotrauma that occurred to the bilateral TMs a fter his first HBO treatment and therefore he received bilateral tympanostomy tubes on 12/20/2019. The patient denies any discomfort or pain. See documented blood glucose levels. 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 Zhu of [facility] Essential (primary) hypertension (Chronic) Other specified peripheral vascular diseases (Chronic) Skin ulcer of finger with fat layer exposed (Chronic) Right Index Finger 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) Allergies/Adverse Reactions: Allergies atorvastatin Adverse Reaction (Verified 08/23/19 12:36) Unknown metformin Adverse Reaction (Verified 08/23/19 12:36) Diarrhea Home Medications: Ambulatory Orders Medication Instructions Recorded Ammonium Lactate [Amlactin] 57 gm TP PRN PRN 10/04/17 Celecoxib [Celebrex] 200 mg PO DAILY 10/04/17 Cholecalciferol (Vitamin D3) 5,000 unit PO DAILY 10/04/17 [Vitamin D3] Levomefolate/B6/B12/Algal Oil 1 ea PO DAILY 10/04/17 [Metanx Capsule] Nortriptyline HCl 50 mg PO QHS 10/04/17 Biotin 1 mg PO DAILY 04/01/18 Desonide 0.05% [Desowen 0.05% 1 applic TOPICAL BID 04/01/18 Cream] Diflorasone Diacetate [Psorcon] 1 applicatio TP BID PRN 04/01/18 Insulin Glargine,Hum.rec.anlog 20 unit SQ QHS 04/01/18 [Basaglar Kwikpen U-100] Insulin Lispro [Humalog KwikPen] See Protocol SQ TIDCM 04/01/18 Ketoconazole [Nizoral] 1 applic TOPICAL DAILY PRN 04/01/18 Magnesium 250 mg PO DAILY 04/01/18 metoprolol tartrate 25 mg tablet 12.5 mg PO BID tab MDD 1.5 tabs 07/19/18 lisinopril 5 mg tablet 5 mg PO QDAY #30 tab 03/19/19 albuterol sulfate 90 mcg/actuation 2 puff INHALATION Q4H PRN g 08/13/19 aerosol inhaler amlodipine 10 mg tablet 10 mg PO DAILY 08/13/19 becaplermin 0.01 % topical gel 1 applic TOPICAL DAILY 08/13/19 cetirizine 10 mg tablet 10 mg PO DAILY 08/13/19 gabapentin 300 mg capsule 900 mg PO TID cap 08/13/19 nifedipine 30 mg tablet,extended 30 mg PO DAILY 08/13/19 release simvastatin 10 mg tablet 10 mg PO QHS 08/13/19 vardenafil 20 mg tablet 20 mg PO DAILY PRN 08/13/19 Cyanocobalamin [Vitamin B12] 1,000 mcg IM Q30D 08/22/19 aspirin 81 mg tablet,delayed 162 mg PO DAILY tab MDD . 10/12/19 release baclofen 20 mg tablet 30 mg PO TID tab 10/12/19 cephalexin 500 mg capsule 500 mg PO Q6H cap 10/12/19 famotidine 20 mg tablet 20 mg PO DAILY PRN 10/12/19 furosemide 20 mg tablet 20 mg PO BID PRN tab 10/12/19 Maternal Family History: Family History (Last Reviewed 10/18/19 @ 11:24 by Linda Leon) Other Arthritis Hypertension Family History: Diabetes Paternal Family History: Family History (Last Reviewed 10/18/19 @ 11:24 by Linda Leon) Other Arthritis Hypertension Family History: Diabetes Smoking Status: Former smoker Physical Exam Vital Signs Temp Pulse Resp BP 96.9 F L 84 18 136/72 H 01/02/20 09:03 01/02/20 09:03 01/02/20 09:03 01/02/20 09:03 Assessment/Plan Active Problems (Last Reviewed 10/18/19 @ 11:24 by Linda Leon) Tobacco abuse (Chronic) Raynaud disease (Chronic) 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 grade 3 treated medically Delayed wound healing (Chronic) Malnutrition (Chronic) Type 2 diabetes mellitus with diabetic polyneuropathy (Chronic) The patient tolerated hyperbaric oxygen therapy session #5 well without any issues at this time. Continue with current plan of care.
[2020-01-02 11:25] VITALS: BP 95/65; PULSE 69; RESP 16; TEMP 36.5; BMI 28.7
--- NOTE | 2020-01-02 12:00 | PN.PCM_ITS ---
(1) Chronic ulcer of left foot with necrosis of muscle Status: Chronic Current Visit: Yes Code(s): L97.523 - Non-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ulcer of other part of left foot with necrosis of muscle Comment: capsular layer is in the wound bed. grade 3 treated medically (2) Delayed wound healing Status: Chronic Current Visit: Yes Code(s): T14.8XXD - Other injury of unspecified body region, subsequent encounter (3) Malnutrition Status: Chronic Current Visit: Yes Code(s): E46 - Unspecified protein- calorie malnutrition (4) Type 2 diabetes mellitus with diabetic polyneuropathy Status: Chronic Current Visit: Yes Code(s): E11.42 - Type 2 diabetes mellitus with diabetic polyneuropathy (5) Tobacco abuse Status: Chronic Current Visit: Yes Code(s): Z72.0 - Tobacco use (6) Raynaud disease Status: Chronic Current Visit: Yes Code(s): I73.00 - Raynaud's syndrome without gangrene Type of Wound Date of Service: 01/02/20 Chief Complaint: Left foot ulcer History of Wound: Mr. Espinoza is a 59-year-old with past medical history as stated above who is well-known to the wound center. He is able to offload better at this time. He also recently saw vascular surgery who did not recommend additional intervention at this time. He also had an MRI to rule out osteomyelitis due to the recent increase in ulcer depth which was negative. he denies fever, chill, nausea, vomiting, loss of appetite or pain to the foot. He had a deteriorating station of the ulcer with bacterial colonization and this was now progressed to a Rousseau grade 3. He completed a course of antibiotics as advised. He proceed with hyperbaric oxygen therapy. He defers surgical resection of the fourth metatarsal head at this time because he admits to not be able to keep pressure off of it and there are coronavirus surgical room availability conflicts. Progress of Wound: Improving - Physical Exam Vital Signs Temp Pulse Resp BP 97.7 F L 69 16 95/65 01/02/20 11:25 01/02/20 11:25 01/02/20 11:25 01/02/20 11:25 General: Alert, Oriented x3, Cooperative, No apparent distress Extremities: No cyanosis, Capillary Refill Less than 3 Seconds, No Calf Tenderness, Diminished Peripheral Pulses, Edema Skin: Ulcer/ Wound - No purulence, erythema, string, odor, infection. Peripheral skin is atrophic. There is no peripheral maceration or hany callus formation today. There is no longer exposed capsular muscle. Wound Measurements and Assessment WC - Nurse 1 - General Ulcer Measurement Start: 12/19/19 10:41 Freq: Status: Active Protocol: Activity Type Activity Date Activity User E-Sign Co-Sign Detail Recorded Client Recorded Date Recorded By Document 01/02/20 11:25 DL [id number] 01/02/20 11:38 DL 01/02/20 11:25 Wound Center Nurse 1 [Ulcer Assessment] 11. L plantar -Current Size (cm) - Length 1.8 -Current Size (cm) - Width 1.5 -Current Size (cm) - Depth 0.3 -Total Square Cm 2.70 -Photo Taken No -Exudate Amt Small -Exudate Type Serosanguineous -Wound Margin Distinct, Outline Attached -Granulation Amt Small (1-33%) -Granulation Quality [place] -Necrosis Amt Large (67-100%) -Necrotic Tissue Type Adherent Slough -Structure Exposed N/A -Texture ([place]-wound Skin Appearance) Callus -Moisture ([place]-wound Skin Appearance Maceration ) -Color ([place]-wound Skin Appearance) No Abnormality -Temperature ([place]-wound Skin No Abnormality Appearance) (Pt Warm) -Tenderness on Palpation ([place]-wound No Skin Appearance) -Ulcer Cleansing Wound Cleanser -Foul Odor after Cleansing No -Anesthetic Used 4% Lidocaine Solution - Nurse 2 - General Ulcer CM Notes Start: 12/19/19 10:41 Freq: Status: Active Protocol: Activity Type Activity Date Activity User E-Sign Co-Sign Detail Recorded Client Recorded Date Recorded By Document 01/02/20 11:51 [id number] 01/02/20 11:53 01/02/20 11:51 Wound Center Nurse 2 [Procedure/Treatment] -Time 11:51 -Correct Patient Yes -Correct Side, Site, Position Yes -Correct Procedure Yes -Procedure Performed Yes -Type of Procedure Debridement -Clinical Debridement Subcutaneous -Post Debridement Size (cm) - Length 1.8 -Post Debridement Size (cm) - Width 1.5 -Post Debridement Size (cm) - Depth 0.3 -Total Square Cm 2.70 -Wound/Ulcer Outcome Not Healed -Ulcer Cleansing Rinsed/ Irrigated with Saline -Foul Odor after Cleansing No -Bioengineered Tissue Yes -Type of bioengineered Tissue EPIFIX -Expiration Date 09/16/24 -Product Lot Number [id number] -Percent Used 100 -Saline Lot Number [id number] -Bleeding Controlled with Pressure -Offloading Yes -Type of Offloading Total Contact Cast (TCC) -Treatment Response Procedure Tolerated Well [See Physician Procedure note for Specifics] Pain Scale: 0-10 Numeric [Pain] -Is Patient Pain Free? Yes Musculoskeletal: No Tenderness to Palpation of Joints or Extremities, Muscle Wasting, - - Dorsal contracture lesser toes a prominent metatarsal heads Neurological: - - Lack of normal epicritic sensation light touch is consistent with neuropathy status Psych/Mental Status: Normal Affect, Appropriate Debridement Note Post-Debridement Measurements/Treatment WC - Nurse 2 - General Ulcer CM Notes Start: 12/19/19 10:41 Freq: Status: Active Protocol: Activity Type Activity Date Activity User E-Sign Co-Sign Detail Recorded Client Recorded Date Recorded By Document 12/19/19 11:09 [id number] 12/19/19 11:10 Document 12/26/19 12:06 [id number] 12/26/19 12:08 Document 01/02/20 11:51 [id number] 01/02/20 11:53 12/19/19 12/26/19 01/02/20 11:09 12:06 11:51 Wound Center Nurse 2 11. L plantar -Time 11:09 12:07 11:51 -Correct Patient Yes Yes Yes -Correct Side, Site, Position Yes Yes Yes -Correct Procedure Yes Yes Yes -Procedure Performed Yes Yes Yes -Type of Procedure Debridement Debridement Debridement -Clinical Debridement Subcutaneous Subcutaneous Subcutaneous -Post Debridement Size (cm) - Length 1.6 1.5 1.8 -Post Debridement Size (cm) - Width 1.4 1.3 1.5 -Post Debridement Size (cm) - Depth 0.3 0.3 0.3 -Total Square Cm 2.24 1.95 2.70 -Wound/Ulcer Outcome Not Healed Not Healed Not Healed -Ulcer Cleansing Rinsed/ Rinsed/ Rinsed/ Irrigated with Irrigated with Irrigated with Saline Saline Saline -Foul Odor after Cleansing No No No -Bioengineered Tissue Yes Yes Yes -Type of bioengineered Tissue EPIFIX EPIFIX EPIFIX -Expiration Date 08/17/24 08/17/24 09/16/24 -Product Lot Number [id number] -Percent Used 100 100 100 -Saline Lot Number [id number] -Bleeding Controlled with Pressure Pressure Pressure -Offloading Yes Yes Yes -Type of Offloading [place] Total Contact Total Contact Cast (TCC) Cast (TCC) -Treatment Response Procedure Procedure Procedure Tolerated Well Tolerated Well Tolerated Well Pain Scale: 0-10 Numeric Is Patient Pain Free? Yes Yes Yes Wound debrided: sub 4th metatarsal head Laterality: Left Wound Grade/Stage: grade 3 Type of Debridement: Excisional debridement Anesthesia Used: 5% Lidocaine Gel Depth: in the subcutaneous layer Percentage of wound debrided: 100 Instrument Used: #15 blade Tissue Removed: fibrous, devitalized subcutaneous, biofilm, slough Severity: Fat Layer Exposed Amount of bleeding with debridement: Mild Bleeding Controlled with: Pressure Patient tolerated procedure well Assessment/Plan Active Problems (Last Reviewed 10/18/19 @ 11:24 by Linda Leon) Tobacco abuse (Chronic) Raynaud disease (Chronic) 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 grade 3 treated medically Delayed wound healing (Chronic) Malnutrition (Chronic) Type 2 diabetes mellitus with diabetic polyneuropathy (Chronic) Assessment: Left foot ulcer with capsule/muscle tissue exposed, Rousseau grade 3 treated for infection/bacterial colonization. Left foot deformities including tailor bunion and hammertoe. Peripheral vascular disease. Diabetes with polyneuropathy. Malnutrition. Delayed healing. Raynaud's disease Plan: I reviewed and discussed his case today. Subcutaneous excisional debridement was performed as noted in the clinical panel to left foot. He has completed oral antibiotics including Augmentin and ciprofloxacin based off of his prior culture results and appears to be doing better. I recommend application of advanced wound healing product this week, epi-fix. This was applied according to standard protocol 100% of the product was performed. This is medically necessary for limb salvage. He understands the indications, planned application, anticipated healing time and management. He tolerated this well. He was advised to keep his dressing clean, dry, and intact until follow- up next week. To continue proper glycemic control nutritional supplementation optimize healing. Is noted his last hemoglobin A1c we have on file here is 5.9%. This is a chronic ulceration has been present for approximately 10 months. I recommend application of advanced wound healing product. He was advised to follow-up with his vascular surgeon, Dr. Pena as scheduled. He had recent updated vascular studies performed and Dr. Pena is considering additional intervention. I recommend proceeding if there are options available. Due to the increased depth he did also go through a recent osteomyelitis work- up. Osteomyelitis signs were not apparent on the MRI and this will be monitored very closely. Compliance was discussed. He was reassured there are no local signs of infection on the foot today. I answered his questions. He had prior capsule muscle tissue exposed and that further was infected per his culture results which would qualify and is awaiting grade 3. Hyperbaric oxygen therapy is an option for him and he was advised to continue. He has been doing well. Additionally, a well-padded total contact cast was applied with the lower extremity in a rectus position. Verbal consent was obtained and he tolerated this well. He was advised the this clean, dry, and intact until follow-up next week. He denies being claustrophobic. We also discussed surgical intervention such as fourth metatarsal head resection. He defers today. I encouraged him to continue to think about this. Nonemergent surgical procedure are pending at this time to coronavirus pandemic and he understands he will need to wait until this restriction has been lifted to proceed forward. He relates he also would not be able to stay off of it to allow healing. 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 Advised on moving forward with surgical intervention if he is able to allow healing in the postoperative setting. Other options include going on a complex palliative type of the plan. He would like more time to think about this. To return to the wound healing center in 1 week or call sooner if he has any questions or concerns.
[2020-01-07 10:16] LABS: Bedside Glucose 154 mg/dL (70-110)
[2020-01-07 10:37] VITALS: BP 131/75; BP 135/93; PULSE 73; PULSE 91; RESP 16; TEMP 36; TEMP 36.2
[2020-01-07 12:05] LABS: Bedside Glucose 123 mg/dL (70-110)
[2020-01-07 12:18] VITALS: BP 131/74; PULSE 73; RESP 16; TEMP 36.2; BMI 28.7
--- NOTE | 2020-01-07 17:28 | HP.PCM_ITS ---
History of Present Illness Date of Service: 01/07/20 Chief Complaint: Recent frostbite right long finger with nonhealing necrotic ulcer. History of Wound: 59-year-old man with a history of diabetes who is presently being seen for a left diabetic foot ulcer has some skin necrosis on the dorsum right long finger at the DIP joint. He sustained frostbite back on October 03, 2019 involving his left long finger, right index finger, right long finger, and right ring finger. He was seen at [facility]. After careful observation to look for areas of demarcation, all the fingers survived with the exception of some skin necrosis on the right long finger. He became concerned recently because of increased pain and drainage from the eschar. He presents today for further evaluation and treatment. Patient is right hand dominant. Past Medical History Past Medical History: Chronic Problems (Last Updated 01/09/20 @ 13:[address] 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 Zhu of [facility] Essential (primary) hypertension (Chronic) Other specified peripheral vascular diseases (Chronic) Skin ulcer of finger with fat layer exposed (Chronic) necrotic ulcer dorsum right long finger at DIP joint 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) Surgical History: - - Toe amputations RLE. appendectomy with partial cecectomy. Allergies/Adverse Reactions: Allergies atorvastatin Adverse Reaction (Verified 08/23/19 12:36) Unknown metformin Adverse Reaction (Verified 08/23/19 12:36) Diarrhea Home Medications: Ambulatory Orders Medication Instructions Recorded Ammonium Lactate [Amlactin] 57 gm TP PRN PRN 10/04/17 Celecoxib [Celebrex] 200 mg PO DAILY 10/04/17 Cholecalciferol (Vitamin D3) 5,000 unit PO DAILY 10/04/17 [Vitamin D3] Levomefolate/B6/B12/Algal Oil 1 ea PO DAILY 10/04/17 [Metanx Capsule] Nortriptyline HCl 50 mg PO QHS 10/04/17 Biotin 1 mg PO DAILY 04/01/18 Desonide 0.05% [Desowen 0.05% 1 applic TOPICAL BID 04/01/18 Cream] Diflorasone Diacetate [Psorcon] 1 applicatio TP BID PRN 04/01/18 Insulin Glargine,Hum.rec.anlog 20 unit SQ QHS 04/01/18 [Basaglar Kwikpen U-100] Insulin Lispro [Humalog KwikPen] See Protocol SQ TIDCM 04/01/18 Ketoconazole [Nizoral] 1 applic TOPICAL DAILY PRN 04/01/18 Magnesium 250 mg PO DAILY 04/01/18 metoprolol tartrate 25 mg tablet 12.5 mg PO BID tab MDD 1.5 tabs 07/19/18 lisinopril 5 mg tablet 5 mg PO QDAY #30 tab 03/19/19 albuterol sulfate 90 mcg/actuation 2 puff INHALATION Q4H PRN g 08/13/19 aerosol inhaler amlodipine 10 mg tablet 10 mg PO DAILY 08/13/19 becaplermin 0.01 % topical gel 1 applic TOPICAL DAILY 08/13/19 cetirizine 10 mg tablet 10 mg PO DAILY 08/13/19 gabapentin 300 mg capsule 900 mg PO TID cap 08/13/19 nifedipine 30 mg tablet,extended 30 mg PO DAILY 08/13/19 release simvastatin 10 mg tablet 10 mg PO QHS 08/13/19 vardenafil 20 mg tablet 20 mg PO DAILY PRN 08/13/19 Cyanocobalamin [Vitamin B12] 1,000 mcg IM Q30D 08/22/19 aspirin 81 mg tablet,delayed 162 mg PO DAILY tab MDD . 10/12/19 release baclofen 20 mg tablet 30 mg PO TID tab 10/12/19 cephalexin 500 mg capsule 500 mg PO Q6H cap 10/12/19 famotidine 20 mg tablet 20 mg PO DAILY PRN 10/12/19 furosemide 20 mg tablet 20 mg PO BID PRN tab 10/12/19 - Family History Maternal Family History: Family History (Last Reviewed 10/18/19 @ 11:24 by Linda Leon) Other Arthritis Hypertension Diabetes Paternal Family History: Family History (Last Reviewed 10/18/19 @ 11:24 by Linda Leon) Other Arthritis Hypertension Diabetes Lives: Alone Smoking Status: Current every day smoker Alcohol: None Drugs: None Review of Systems Constitutional: Reports: Anorexia, Weakness. Denies: Chills, Fever, Weight Change. Eyes: Denies: Blurred vision, Cataracts, Conjunctivae Inflammation, Double vision. HEENT: Denies: Difficulty Hearing, Difficulty Swallowing, Head Aches, Sinus Congestion, Sinus Drainage. Cardiovascular: Reports: Chest Pain, Chest Pressure, Edema, Orthopnea. Denies: Chest Tightness, Palpitations, Paroxysmal Noc. Dyspnea. Respiratory: Reports: Shortness of Breath, Shortness of breath at rest, Shortness of breath upon exertion. Denies: Cough, Hemoptysis, Pleuritic Pain, Sputum production. Gastrointestinal: Denies: Abdominal Pain, Constipation, Hematemesis, Nausea, Vomiting. Genitourinary: Denies: Dysuria, Frequency, Incontinence. Musculoskeletal: Denies: Arm Pain, Back Pain, Joint Pain, Joint stiffness, Joint swelling, Joint Tenderness. Skin: Denies: Rash, Wounds. Neurological: Denies: Numbness, Tingling, Focal weakness. Psychiatric: Denies: Anxiety, Depression, Homicidal Ideations, Suicidal Ideations. Hematologic/ Lymphatic: Denies: Easy Bruising, Easy Bleeding - Physical Exam General: Alert, Oriented x3, Cooperative. HEENT: PERRLA, EOMI. Oral: Moist Mucosa. Neck: Supple, nontender. No cervical adenopathy. Lungs: Normal air movement, Diminished Cardiovascular: Regular rate, Regular Rhythm. Abdomen: Soft, Non-Distended. Extremities: On the dorsum right long finger over the DIP joint is an area of skin necrosis with drainage, non-purulent. Measures 1.8 x 0.7 cm. Can almost make a fist. He states he has chronic stiffness in his fingers from his Raynaud's. Mild swelling present. He is right hand dominant. Fingers are warm with good capillary refill. Has paresthesias from diabetic neuropathy. No axillary adenopathy. Lymphatic: No Cervical, Supraclavicular, or Inguinal Adenopathy Neurological: Cranial nerves II-XII grossly intact Psych/Mental Status: Normal Affect, Appropriate Vital Signs Temp Pulse Resp BP 97.1 F L 73 16 131/74 H 01/07/20 12:18 01/07/20 12:18 01/07/20 12:18 01/07/20 12:18 Wound Measurements and Assessment WC - Nurse 1 - General Ulcer Measurement Start: 12/19/19 10:41 Freq: Status: Active Protocol: Activity Type Activity Date Activity User E-Sign Co-Sign Detail Recorded Client Recorded Date Recorded By Document 01/07/20 12:18 DL [id number] 01/07/20 12:22 DL 01/07/20 12:18 Wound Center Nurse 1 [Ulcer Assessment] #13 Right long finger -Current Size (cm) - Length 0.8 -Current Size (cm) - Width 2.1 -Current Size (cm) - Depth 0.1 -Total Square Cm 1.68 -Photo Taken Yes -Epithelialization None Present -Classification - Thickness Unclassifiable (Eschar Covered ) -Exudate Amt None Present -Wound Margin Thickened -Granulation Amt None Present (0 %) -Necrotic Tissue Type Eschar -Structure Exposed N/A -Texture (M[place]helle-wound Skin Appearance) Localized Edema ,Scarring -Moisture ([place]le-wound Skin Appearance Dry/Scaly ) -Color ([place]le-wound Skin Appearance) Erythema -Temperature ([place]-wound Skin No Abnormality Appearance) (Pt Warm) -Tenderness on Palpation ([place]le-wound No Skin Appearance) -Ulcer Cleansing Rinsed/ Irrigated with Saline -Foul Odor after Cleansing No -Anesthetic Used 4% Lidocaine Solution - Nurse 2 - General Ulcer CM Notes Start: 12/19/19 10:41 Freq: Status: Active Protocol: Activity Type Activity Date Activity User E-Sign Co-Sign Detail Recorded Client Recorded Date Recorded By Document 01/07/20 12:58 MARJORIE [id number] 01/07/20 12:59 01/07/20 12:58 Wound Center Nurse 2 [Procedure/Treatment] -Time 12:58 -Correct Patient Yes -Correct Side, Site, Position Yes -Correct Procedure Yes -Procedure Performed Yes -Type of Procedure Debridement -Clinical Debridement Subcutaneous -Post Debridement Size (cm) - Length 1.8 -Post Debridement Size (cm) - Width 0.7 -Post Debridement Size (cm) - Depth 0.2 -Total Square Cm 1.26 -Wound/Ulcer Outcome Not Healed -Ulcer Cleansing Rinsed/ Irrigated with Saline -Foul Odor after Cleansing No -Bioengineered Tissue No -Bleeding Controlled with Pressure -Offloading No -Treatment Response Procedure Tolerated Well [See Physician Procedure note for Specifics] Pain Scale: 0-10 Numeric [Pain] -Is Patient Pain Free? Yes Debridement Note Post-Debridement Measurements/Treatment WC - Nurse 2 - General Ulcer CM Notes Start: 12/19/19 10:41 Freq: Status: Active Protocol: Activity Type Activity Date Activity User E-Sign Co-Sign Detail Recorded Client Recorded Date Recorded By Document 12/19/19 11:09 [id number] 12/19/19 11:10 Document 12/26/19 12:06 [id number] 12/26/19 12:08 Document 01/02/20 11:51 [id number] 01/02/20 11:53 Document 01/07/20 12:58 [id number] 01/07/20 12:59 12/19/19 12/26/19 01/02/20 11:09 12:06 11:51 Wound Center Nurse 2 #13 R 2nd finger -Time -Correct Patient -Correct Side, Site, Position -Correct Procedure -Procedure Performed -Type of Procedure -Clinical Debridement -Post Debridement Size (cm) - Length -Post Debridement Size (cm) - Width -Post Debridement Size (cm) - Depth -Total Square Cm -Wound/Ulcer Outcome -Ulcer Cleansing -Foul Odor after Cleansing -Bioengineered Tissue -Bleeding Controlled with -Offloading -Treatment Response 11. L plantar -Time 11:09 12:07 11:51 -Correct Patient Yes Yes Yes -Correct Side, Site, Position Yes Yes Yes -Correct Procedure Yes Yes Yes -Procedure Performed Yes Yes Yes -Type of Procedure Debridement Debridement Debridement -Clinical Debridement Subcutaneous Subcutaneous Subcutaneous -Post Debridement Size (cm) - Length 1.6 1.5 1.8 -Post Debridement Size (cm) - Width 1.4 1.3 1.5 -Post Debridement Size (cm) - Depth 0.3 0.3 0.3 -Total Square Cm 2.24 1.95 2.70 -Wound/Ulcer Outcome Not Healed Not Healed Not Healed -Ulcer Cleansing Rinsed/ Rinsed/ Rinsed/ Irrigated with Irrigated with Irrigated with Saline Saline Saline -Foul Odor after Cleansing No No No -Bioengineered Tissue Yes Yes Yes -Type of bioengineered Tissue EPIFIX EPIFIX EPIFIX -Expiration Date 08/17/24 08/17/24 09/16/24 -Product Lot Number [id number] -Percent Used 100 100 100 -Saline Lot Number [id number] -Bleeding Controlled with Pressure Pressure Pressure -Offloading Yes Yes Yes -Type of Offloading Camwalker Total Contact Total Contact Cast (TCC) Cast (TCC) -Treatment Response Procedure Procedure Procedure Tolerated Well Tolerated Well Tolerated Well Pain Scale: 0-10 Numeric Is Patient Pain Free? Yes Yes Yes 01/07/20 12:58 Wound Center Nurse 2 #13 Right long finger -Time 12:58 -Correct Patient Yes -Correct Side, Site, Position Yes -Correct Procedure Yes -Procedure Performed Yes -Type of Procedure Debridement -Clinical Debridement Subcutaneous -Post Debridement Size (cm) - Length 1.8 -Post Debridement Size (cm) - Width 0.7 -Post Debridement Size (cm) - Depth 0.2 -Total Square Cm 1.26 -Wound/Ulcer Outcome Not Healed -Ulcer Cleansing Rinsed/ Irrigated with Saline -Foul Odor after Cleansing No -Bioengineered Tissue No -Bleeding Controlled with Pressure -Offloading No -Treatment Response Procedure Tolerated Well 11. L plantar -Time -Correct Patient -Correct Side, Site, Position -Correct Procedure -Procedure Performed -Type of Procedure -Clinical Debridement -Post Debridement Size (cm) - Length -Post Debridement Size (cm) - Width -Post Debridement Size (cm) - Depth -Total Square Cm -Wound/Ulcer Outcome -Ulcer Cleansing -Foul Odor after Cleansing -Bioengineered Tissue -Type of bioengineered Tissue -Expiration Date -Product Lot Number -Percent Used -Saline Lot Number -Bleeding Controlled with -Offloading -Type of Offloading -Treatment Response Pain Scale: 0-10 Numeric Is Patient Pain Free? Yes Wound debrided: #13 Right long finger. Laterality: Right Wound Grade/Stage: 2. Type of Debridement: Excisional debridement Anesthesia Used: 4% Lidocaine Solution Depth: Down to and including healthy tissue, in the subcutaneous layer Percentage of wound debrided: 100 Instrument Used: 3mm curette, Forceps, - - scissors Tissue Removed: skin necrosis and subcutaneous tissue. Severity: Fat Layer Exposed Amount of bleeding with debridement: Mild Bleeding Controlled with: Pressure Patient tolerated procedure well, - - A wound culture was obtained today. Assessment/Plan Active Problems (Last Updated 01/09/20 @ 13:[address] 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 grade 3 treated medically Delayed wound healing (Chronic) Malnutrition (Chronic) Type 2 diabetes mellitus with diabetic polyneuropathy (Chronic) Assessment: 1. Nonhealing necrotic ulcer dorsum right long finger at DIP joint. 2. Diabetes mellitus. 3. History of recent frostbite. 4. Raynaud's disease. 5. Peripheral vascular disease. 6. Smoker. Plan: Begin Tegan dressing changes to the right long finger wound daily. Encourage range of motion exercises to minimize stiffness. A wound culture was obtained today. A positive culture will necessitate antibiotic therapy. His HgbA1c from 08/23/19 was 6.1. His last Prealbumin from 03/04/17 was 24.1. Encourage nutritional supplementation with protein to help the healing process. He is currently getting HBO for a left diabetic foot ulcer which should help to heal his right long finger wound. If healing is delayed, he would need operative debridement with skin flap or skin graft reconstruction. With his history of Raynaud's and peripheral vascular disease and smoking, he is at increased risk of developing wound healing problems and possible osteomyelitis that would lead to an eventual amputation. He voices understanding. Will also check a finger x-ray. Followup one week. Encouraged the patient to stop smoking as it may have deleterious effects on wound healing. Office Visits / Consults: [id number] OV L4 New - -25 Modifier ICD-10 - L98.492, I96, Z91.89, E11.9, I73.00, I73.9, F17.200 Multi Select Codes - Integumentary Integumentary CPT Codes: 87365 Lelia subq tissue 20 sq cm/< - ICD-10 - L98.492, I96, Z91.89, E11.9, I73.00, I73.9, F17.200
--- NOTE | 2020-01-07 17:30 | PCM.HBO.PN ---
History of Present Illness Date of Service: 01/07/20 Presenting Chief Complaint: Left plantar Rousseau grade 3 diabetic foot ulcer. RICK GEORGE Jr. is a 59 year old currently undergoing hyperbaric oxygen therapy for left plantar Rousseau grade 3 diabetic foot ulcer. Progress: Today represents the 10th hyperbaric oxygen therapy treatment and a planned 40 sessions. Tolerance of hyperbaric oxygen therapy: Hyperbaric oxygen treatment was provided as per the facility's protocol at 2.0 VINNY and 100% oxygen for 90 minutes. The patient tolerated hyperbaric oxygen well, without complications or complaints. Upon emergence of the hyperbaric chamber the patient's vital signs remained stable. The patient did have barotrauma that occurred to the bilateral TMs after his first HBO treatment and therefore he received bilateral tympanostomy tubes on 12/20/2019. The patient denies any discomfort or pain. Blood glucose pre-treatment was 154. Blood glucose post-treatment was 123. 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 Zhu of [facility] Essential (primary) hypertension (Chronic) Other specified peripheral vascular diseases (Chronic) Skin ulcer of finger with fat layer exposed (Chronic) Right Index Finger 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) Allergies/Adverse Reactions: Allergies atorvastatin Adverse Reaction (Verified 08/23/19 12:36) Unknown metformin Adverse Reaction (Verified 08/23/19 12:36) Diarrhea Home Medications: Ambulatory Orders Medication Instructions Recorded Ammonium Lactate [Amlactin] 57 gm TP PRN PRN 10/04/17 Celecoxib [Celebrex] 200 mg PO DAILY 10/04/17 Cholecalciferol (Vitamin D3) 5,000 unit PO DAILY 10/04/17 [Vitamin D3] Levomefolate/B6/B12/Algal Oil 1 ea PO DAILY 10/04/17 [Metanx Capsule] Nortriptyline HCl 50 mg PO QHS 10/04/17 Biotin 1 mg PO DAILY 04/01/18 Desonide 0.05% [Desowen 0.05% 1 applic TOPICAL BID 04/01/18 Cream] Diflorasone Diacetate [Psorcon] 1 applicatio TP BID PRN 04/01/18 Insulin Glargine,Hum.rec.anlog 20 unit SQ QHS 04/01/18 [Basaglar Kwikpen U-100] Insulin Lispro [Humalog KwikPen] See Protocol SQ TIDCM 04/01/18 Ketoconazole [Nizoral] 1 applic TOPICAL DAILY PRN 04/01/18 Magnesium 250 mg PO DAILY 04/01/18 metoprolol tartrate 25 mg tablet 12.5 mg PO BID tab MDD 1.5 tabs 07/19/18 lisinopril 5 mg tablet 5 mg PO QDAY #30 tab 03/19/19 albuterol sulfate 90 mcg/actuation 2 puff INHALATION Q4H PRN g 08/13/19 aerosol inhaler amlodipine 10 mg tablet 10 mg PO DAILY 08/13/19 becaplermin 0.01 % topical gel 1 applic TOPICAL DAILY 08/13/19 cetirizine 10 mg tablet 10 mg PO DAILY 08/13/19 gabapentin 300 mg capsule 900 mg PO TID cap 08/13/19 nifedipine 30 mg tablet,extended 30 mg PO DAILY 08/13/19 release simvastatin 10 mg tablet 10 mg PO QHS 08/13/19 vardenafil 20 mg tablet 20 mg PO DAILY PRN 08/13/19 Cyanocobalamin [Vitamin B12] 1,000 mcg IM Q30D 08/22/19 aspirin 81 mg tablet,delayed 162 mg PO DAILY tab MDD . 10/12/19 release baclofen 20 mg tablet 30 mg PO TID tab 10/12/19 cephalexin 500 mg capsule 500 mg PO Q6H cap 10/12/19 famotidine 20 mg tablet 20 mg PO DAILY PRN 10/12/19 furosemide 20 mg tablet 20 mg PO BID PRN tab 10/12/19 Maternal Family History: Family History (Last Reviewed 10/18/19 @ 11:24 by Linda Leon) Other Arthritis Hypertension Family History: Diabetes Paternal Family History: Family History (Last Reviewed 10/18/19 @ 11:24 by Linda Leon) Other Arthritis Hypertension Family History: Diabetes Smoking Status: Former smoker Physical Exam Vital Signs Temp Pulse Resp BP 97.1 F L 73 16 131/74 H 01/07/20 12:18 01/07/20 12:18 01/07/20 12:18 01/07/20 12:18 Assessment/Plan Active Problems (Last Reviewed 10/18/19 @ 11:24 by Linda Leon) Tobacco abuse (Chronic) Raynaud disease (Chronic) 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 grade 3 treated medically Delayed wound healing (Chronic) Malnutrition (Chronic) Type 2 diabetes mellitus with diabetic polyneuropathy (Chronic)
[2020-01-08 09:50] LABS: Bedside Glucose 175 mg/dL (70-110)
[2020-01-08 10:39] VITALS: BP 127/67; BP 92/63; PULSE 66; PULSE 75; RESP 16; RESP 18; TEMP 35.9; TEMP 36.4
[2020-01-08 12:25] LABS: Bedside Glucose 105 mg/dL (70-110)
--- NOTE | 2020-01-08 13:41 | HBO.PN.PCM_ITS ---
History of Present Illness Date of Service: 01/08/20 Presenting Chief Complaint: Left foot ulcer RICK GEORGE Jr. is a 59 year old currently undergoing hyperbaric oxygen therapy for left plantar Rousseau grade 3 DFU. Progress: Today represents the 11th hyperbaric oxygen therapy treatment and a planned 40 sessions. Tolerance of hyperbaric oxygen therapy: Hyperbaric oxygen treatment was provided as per the facility's protocol at 2.0 VINNY and 100% oxygen for 90 minutes. The patient tolerated hyperbaric oxygen well, without complications or complaints. Upon emergence of the hyperbaric chamber the patient's vital signs remained stable. The patient received bilateral tympanostomy tubes on 12/20/2019. The patient denies any discomfort or pain. See documented blood glucose levels. 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 Zhu of [facility] Essential (primary) hypertension (Chronic) Other specified peripheral vascular diseases (Chronic) Skin ulcer of finger with fat layer exposed (Chronic) Right Index Finger 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) Allergies/Adverse Reactions: Allergies atorvastatin Adverse Reaction (Verified 08/23/19 12:36) Unknown metformin Adverse Reaction (Verified 08/23/19 12:36) Diarrhea Home Medications: Ambulatory Orders Medication Instructions Recorded Ammonium Lactate [Amlactin] 57 gm TP PRN PRN 10/04/17 Celecoxib [Celebrex] 200 mg PO DAILY 10/04/17 Cholecalciferol (Vitamin D3) 5,000 unit PO DAILY 10/04/17 [Vitamin D3] Levomefolate/B6/B12/Algal Oil 1 ea PO DAILY 10/04/17 [Metanx Capsule] Nortriptyline HCl 50 mg PO QHS 10/04/17 Biotin 1 mg PO DAILY 04/01/18 Desonide 0.05% [Desowen 0.05% 1 applic TOPICAL BID 04/01/18 Cream] Diflorasone Diacetate [Psorcon] 1 applicatio TP BID PRN 04/01/18 Insulin Glargine,Hum.rec.anlog 20 unit SQ QHS 04/01/18 [Basaglar Kwikpen U-100] Insulin Lispro [Humalog KwikPen] See Protocol SQ TIDCM 04/01/18 Ketoconazole [Nizoral] 1 applic TOPICAL DAILY PRN 04/01/18 Magnesium 250 mg PO DAILY 04/01/18 metoprolol tartrate 25 mg tablet 12.5 mg PO BID tab MDD 1.5 tabs 07/19/18 lisinopril 5 mg tablet 5 mg PO QDAY #30 tab 03/19/19 albuterol sulfate 90 mcg/actuation 2 puff INHALATION Q4H PRN g 08/13/19 aerosol inhaler amlodipine 10 mg tablet 10 mg PO DAILY 08/13/19 becaplermin 0.01 % topical gel 1 applic TOPICAL DAILY 08/13/19 cetirizine 10 mg tablet 10 mg PO DAILY 08/13/19 gabapentin 300 mg capsule 900 mg PO TID cap 08/13/19 nifedipine 30 mg tablet,extended 30 mg PO DAILY 08/13/19 release simvastatin 10 mg tablet 10 mg PO QHS 08/13/19 vardenafil 20 mg tablet 20 mg PO DAILY PRN 08/13/19 Cyanocobalamin [Vitamin B12] 1,000 mcg IM Q30D 08/22/19 aspirin 81 mg tablet,delayed 162 mg PO DAILY tab MDD . 10/12/19 release baclofen 20 mg tablet 30 mg PO TID tab 10/12/19 cephalexin 500 mg capsule 500 mg PO Q6H cap 10/12/19 famotidine 20 mg tablet 20 mg PO DAILY PRN 10/12/19 furosemide 20 mg tablet 20 mg PO BID PRN tab 10/12/19 Maternal Family History: Family History (Last Reviewed 10/18/19 @ 11:24 by Linda Leon) Other Arthritis Hypertension Family History: Diabetes Paternal Family History: Family History (Last Reviewed 10/18/19 @ 11:24 by Linda Leon) Other Arthritis Hypertension Family History: Diabetes Smoking Status: Former smoker Physical Exam Vital Signs Temp Pulse Resp BP 97.5 F L 75 18 127/67 H 01/08/20 10:39 01/08/20 10:39 01/08/20 10:39 01/08/20 10:39 General: Alert, Oriented x3, Cooperative, No apparent distress HEENT: Atraumatic, TM's Clear Lungs: Clear to auscultation, Normal air movement Cardiovascular: Regular rate, Regular Rhythm Psych/Mental Status: Normal Affect, Appropriate, Alert and oriented to time, place, person, mood and affect Assessment/Plan Active Problems (Last Reviewed 10/18/19 @ 11:24 by Linda Leon) Tobacco abuse (Chronic) Raynaud disease (Chronic) 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 grade 3 treated medically Delayed wound healing (Chronic) Malnutrition (Chronic) Type 2 diabetes mellitus with diabetic polyneuropathy (Chronic) The patient tolerated hyperbaric oxygen therapy well without any issues at this time. Continue with current plan of care.
[2020-01-09 09:01] LABS: Bedside Glucose 125 mg/dL (70-110)
[2020-01-09 09:44] VITALS: BP 114/70; BP 136/68; PULSE 76; PULSE 81; RESP 16; RESP 18; TEMP 36.4; TEMP 36.5
[2020-01-09 11:16] LABS: Bedside Glucose 141 mg/dL (70-110)
[2020-01-09 11:30] VITALS: BP 114/70; PULSE 76; RESP 16; TEMP 36.4; BMI 28.7
--- NOTE | 2020-01-09 11:39 | PCM.HBO.PN ---
History of Present Illness Date of Service: 01/09/20 Presenting Chief Complaint: Left plantar Rousseau grade 3 diabetic foot ulcer. RICK GEORGE Jr. is a 59 year old currently undergoing hyperbaric oxygen therapy for left plantar Rousseau grade 3 diabetic foot ulcer. Progress: Today represents the 11th hyperbaric oxygen therapy treatment and a planned 40 sessions. Tolerance of hyperbaric oxygen therapy: Hyperbaric oxygen treatment was provided as per the facility's protocol at 2.0 VINNY and 100% oxygen for 90 minutes. The patient tolerated hyperbaric oxygen well, without complications or complaints. Upon emergence of the hyperbaric chamber the patient's vital signs remained stable. The patient did have barotrauma that occurred to the bilateral TMs after his first HBO treatment and therefore he received bilateral tympanostomy tubes on 12/20/2019. The patient denies any discomfort or pain. Blood glucose pre-treatment was 154. Blood glucose post-treatment was 123. 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 Zhu of [facility] Essential (primary) hypertension (Chronic) Other specified peripheral vascular diseases (Chronic) Skin ulcer of finger with fat layer exposed (Chronic) Right Index Finger 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) Allergies/Adverse Reactions: Allergies atorvastatin Adverse Reaction (Verified 08/23/19 12:36) Unknown metformin Adverse Reaction (Verified 08/23/19 12:36) Diarrhea Home Medications: Ambulatory Orders Medication Instructions Recorded Ammonium Lactate [Amlactin] 57 gm TP PRN PRN 10/04/17 Celecoxib [Celebrex] 200 mg PO DAILY 10/04/17 Cholecalciferol (Vitamin D3) 5,000 unit PO DAILY 10/04/17 [Vitamin D3] Levomefolate/B6/B12/Algal Oil 1 ea PO DAILY 10/04/17 [Metanx Capsule] Nortriptyline HCl 50 mg PO QHS 10/04/17 Biotin 1 mg PO DAILY 04/01/18 Desonide 0.05% [Desowen 0.05% 1 applic TOPICAL BID 04/01/18 Cream] Diflorasone Diacetate [Psorcon] 1 applicatio TP BID PRN 04/01/18 Insulin Glargine,Hum.rec.anlog 20 unit SQ QHS 04/01/18 [Basaglar Kwikpen U-100] Insulin Lispro [Humalog KwikPen] See Protocol SQ TIDCM 04/01/18 Ketoconazole [Nizoral] 1 applic TOPICAL DAILY PRN 04/01/18 Magnesium 250 mg PO DAILY 04/01/18 metoprolol tartrate 25 mg tablet 12.5 mg PO BID tab MDD 1.5 tabs 07/19/18 lisinopril 5 mg tablet 5 mg PO QDAY #30 tab 03/19/19 albuterol sulfate 90 mcg/actuation 2 puff INHALATION Q4H PRN g 08/13/19 aerosol inhaler amlodipine 10 mg tablet 10 mg PO DAILY 08/13/19 becaplermin 0.01 % topical gel 1 applic TOPICAL DAILY 08/13/19 cetirizine 10 mg tablet 10 mg PO DAILY 08/13/19 gabapentin 300 mg capsule 900 mg PO TID cap 08/13/19 nifedipine 30 mg tablet,extended 30 mg PO DAILY 08/13/19 release simvastatin 10 mg tablet 10 mg PO QHS 08/13/19 vardenafil 20 mg tablet 20 mg PO DAILY PRN 08/13/19 Cyanocobalamin [Vitamin B12] 1,000 mcg IM Q30D 08/22/19 aspirin 81 mg tablet,delayed 162 mg PO DAILY tab MDD . 10/12/19 release baclofen 20 mg tablet 30 mg PO TID tab 10/12/19 cephalexin 500 mg capsule 500 mg PO Q6H cap 10/12/19 famotidine 20 mg tablet 20 mg PO DAILY PRN 10/12/19 furosemide 20 mg tablet 20 mg PO BID PRN tab 10/12/19 Maternal Family History: Family History (Last Reviewed 10/18/19 @ 11:24 by Linda Leon) Other Arthritis Hypertension Family History: Diabetes Paternal Family History: Family History (Last Reviewed 10/18/19 @ 11:24 by Linda Leon) Other Arthritis Hypertension Family History: Diabetes Smoking Status: Former smoker Physical Exam Vital Signs Temp Pulse Resp BP 97.7 F L 81 18 136/68 H 01/09/20 09:44 01/09/20 09:44 01/09/20 09:44 01/09/20 09:44 Assessment/Plan Active Problems (Last Reviewed 10/18/19 @ 11:24 by Linda Leon) Tobacco abuse (Chronic) Raynaud disease (Chronic) 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 grade 3 treated medically Delayed wound healing (Chronic) Malnutrition (Chronic) Type 2 diabetes mellitus with diabetic polyneuropathy (Chronic) The patient tolerated hyperbaric oxygen therapy well without any issues at this time. Continue with current plan of care.
--- NOTE | 2020-01-09 12:06 | PN.PCM_ITS ---
(1) Chronic ulcer of left foot with necrosis of muscle Status: Chronic Current Visit: Yes Code(s): L97.523 - Non-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ulcer of other part of left foot with necrosis of muscle Comment: capsular layer is in the wound bed. grade 3 treated medically (2) Delayed wound healing Status: Chronic Current Visit: Yes Code(s): T14.8XXD - Other injury of unspecified body region, subsequent encounter (3) Malnutrition Status: Chronic Current Visit: Yes Code(s): E46 - Unspecified protein- calorie malnutrition (4) Type 2 diabetes mellitus with diabetic polyneuropathy Status: Chronic Current Visit: Yes Code(s): E11.42 - Type 2 diabetes mellitus with diabetic polyneuropathy (5) Tobacco abuse Status: Chronic Current Visit: Yes Code(s): Z72.0 - Tobacco use (6) Raynaud disease Status: Chronic Current Visit: Yes Code(s): I73.00 - Raynaud's syndrome without gangrene (7) Tinea unguium Status: Chronic Current Visit: Yes Code(s): B35.1 - Tinea unguium (8) Other hereditary and idiopathic neuropathies Status: Chronic Current Visit: Yes Code(s): G60.8 - Other hereditary and idiopathic neuropathies Type of Wound Date of Service: 01/09/20 Chief Complaint: Left plantar Rousseau grade 3 diabetic foot ulcer. History of Wound: Mr. Espinoza is a 59-year-old with past medical history as stated above who is well-known to the wound center. He is able to offload better at this time. He also recently saw vascular surgery who did not recommend additional intervention at this time. He also had an MRI to rule out o steomyelitis due to the recent increase in ulcer depth which was negative. he denies fever, chill, nausea, vomiting, loss of appetite or pain to the foot. He had a deteriorating station of the ulcer with bacterial colonization and this was now progressed to a Rousseau grade 3. He completed a course of antibiotics as advised. He proceed with hyperbaric oxygen therapy. He defers surgical resection of the fourth metatarsal head at this time because he admits to not be able to keep pressure off of it and there are coronavirus surgical room availability conflicts. His toenails are also long, thick, and starting to poke into his adjacent skin. He is at high risk and asked for help trimming his nails safely including bilateral 3, 4, 5 and left 1 and 2. He has neuropathy with ongoing rest paresthesias. He also has lower extremity edema. Progress of Wound: Improving - Physical Exam Vital Signs Temp Pulse Resp BP 97.5 F L 76 16 114/70 01/09/20 11:30 01/09/20 11:30 01/09/20 11:30 01/09/20 11:30 General: Alert, Oriented x3, Cooperative, No apparent distress Extremities: No cyanosis, Capillary Refill Less than 3 Seconds, No Calf Tenderness, Diminished Peripheral Pulses, Edema Skin: Ulcer/ Wound - No purulence, erythema, streaking, odor, infection. Improved granulation tissue is noted. The capsule is no longer exposed. His adjacent skin is hairless and atrophic. His toenails bilateral 3, 4, 5 and left 1 and 2 are long thick dystrophic with subungual debris. There are no other ulcers noted. Wound Measurements and Assessment WC - Nurse 1 - General Ulcer Measurement Start: 12/19/19 10:41 Freq: Status: Active Protocol: Activity Type Activity Date Activity User E-Sign Co-Sign Detail Recorded Client Recorded Date Recorded By Document 01/07/20 12:18 DL [id number] 01/07/20 12:22 DL Document 01/09/20 11:30 CP [id number] 01/09/20 11:47 CP 01/07/20 01/09/20 12:18 11:30 Wound Center Nurse 1 [Ulcer Assessment] #13 R 2nd finger -Current Size (cm) - Length 0.8 -Current Size (cm) - Width 2.1 -Current Size (cm) - Depth 0.1 -Total Square Cm 1.68 -Photo Taken Yes -Epithelialization None Present -Classification - Thickness Unclassifiable (Eschar Covered ) -Exudate Amt None Present -Wound Margin Thickened -Granulation Amt None Present (0 %) -Necrotic Tissue Type Eschar -Structure Exposed N/A -Texture (Mechelle-wound Skin Appearance) Localized Edema ,Scarring -Moisture (Mechelle-wound Skin Appearance Dry/Scaly ) -Color (Mechelle-wound Skin Appearance) Erythema -Temperature (Mechelle-wound Skin No Abnormality Appearance) (Pt Warm) -Tenderness on Palpation (Mechelle-wound No Skin Appearance) -Ulcer Cleansing Rinsed/ Irrigated with Saline -Foul Odor after Cleansing No -Anesthetic Used 4% Lidocaine Solution 11. L plantar -Current Size (cm) - Length 1.6 -Current Size (cm) - Width 1.4 -Current Size (cm) - Depth 0.2 -Total Square Cm 2.24 -Date of Last Picture (Recall this 01/09/20 field) -Photo Taken Yes -Epithelialization None Present -Tunneling No -Undermining/Tunneling No -Circular Undermining No -Exudate Amt Small -Exudate Type Serosanguineous -Wound Margin Thickened & Rolled Under -Granulation Amt Large (67-100%) -Granulation Quality Red -Slough/Fibrin Yes -Necrosis Amt Small (1-33%) -Necrotic Tissue Type Adherent Slough -Structure Exposed N/A -Texture (Mechelle-wound Skin Appearance) No Abnormality -Moisture (Mechelle-wound Skin Appearance No Abnormality ) -Color (Mechelle-wound Skin Appearance) No Abnormality -Temperature (Mechelle-wound Skin No Abnormality Appearance) (Pt Warm) -Tenderness on Palpation (Mechelle-wound No Skin Appearance) -Ulcer Cleansing soap and water -Foul Odor after Cleansing No -Anesthetic Used 4% Lidocaine Solution WC - Nurse 2 - General Ulcer CM Notes Start: 12/19/19 10:41 Freq: Status: Active Protocol: Activity Type Activity Date Activity User E-Sign Co-Sign Detail Recorded Client Recorded Date Recorded By Document 01/07/20 12:58 [id number] 01/07/20 12:59 Document 01/09/20 12:03 CP [id number] 01/09/20 12:06 01/07/20 01/09/20 12:58 12:03 Wound Center Nurse 2 [Procedure/Treatment] #13 R 2nd finger -Time 12:58 12:03 -Correct Patient Yes No -Correct Side, Site, Position Yes No -Correct Procedure Yes No -Procedure Performed Yes No -Type of Procedure Debridement -Clinical Debridement Subcutaneous -Post Debridement Size (cm) - Length 1.8 -Post Debridement Size (cm) - Width 0.7 -Post Debridement Size (cm) - Depth 0.2 -Total Square Cm 1.26 -Wound/Ulcer Outcome Not Healed -Ulcer Cleansing Rinsed/ Irrigated with Saline -Foul Odor after Cleansing No -Bioengineered Tissue No No -Expiration Date 09/16/24 -Product Lot Number [id number] -Percent Used 100 -Saline Lot Number [id number] -Bleeding Controlled with Pressure -Offloading No No -Treatment Response Procedure Tolerated Well 11. L plantar -Time 12:05 -Correct Patient Yes -Correct Side, Site, Position Yes -Correct Procedure Yes -Procedure Performed Yes -Type of Procedure Debridement -Clinical Debridement Subcutaneous -Post Debridement Size (cm) - Length 1.6 -Post Debridement Size (cm) - Width 1.5 -Post Debridement Size (cm) - Depth 0.2 -Total Square Cm 2.40 -Wound/Ulcer Outcome Not Healed -Ulcer Cleansing Rinsed/ Irrigated with Saline -Foul Odor after Cleansing No -Bioengineered Tissue Yes -Type of bioengineered Tissue EPIFIX -Expiration Date 09/16/24 -Product Lot Number [id number] -Percent Used 100 -Saline Lot Number [id number] -Bleeding Controlled with Pressure -Offloading Yes -Type of Offloading Total Contact Cast (TCC) -Treatment Response Procedure Tolerated Well [See Physician Procedure note for Specifics] Pain Scale: 0-10 Numeric [Pain] -Is Patient Pain Free? 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 Bilateral prominent metatarsal heads Neurological: - - lack of epicritic sensation light touch is consistent with his neuropathy status Psych/Mental Status: Normal Affect, Appropriate Debridement Note Post-Debridement Measurements/Treatment WC - Nurse 2 - General Ulcer CM Notes Start: 12/19/19 10:41 Freq: Status: Active Protocol: Activity Type Activity Date Activity User E-Sign Co-Sign Detail Recorded Client Recorded Date Recorded By Document 12/19/19 11:09 [id number] 12/19/19 11:10 Document 12/26/19 12:06 [id number] 12/26/19 12:08 Document 01/02/20 11:51 [id number] 01/02/20 11:53 Document 01/07/20 12:58 [id number] 01/07/20 12:59 Document 01/09/20 12:03 CP [id number] 01/09/20 12:06 CP 12/19/19 12/26/19 01/02/20 11:09 12:06 11:51 Wound Center Nurse 2 #13 R 2nd finger -Time -Correct Patient -Correct Side, Site, Position -Correct Procedure -Procedure Performed -Type of Procedure -Clinical Debridement -Post Debridement Size (cm) - Length -Post Debridement Size (cm) - Width -Post Debridement Size (cm) - Depth -Total Square Cm -Wound/Ulcer Outcome -Ulcer Cleansing -Foul Odor after Cleansing -Bioengineered Tissue -Expiration Date -Product Lot Number -Percent Used -Saline Lot Number -Bleeding Controlled with -Offloading -Treatment Response 11. L plantar -Time 11:09 12:07 11:51 -Correct Patient Yes Yes Yes -Correct Side, Site, Position Yes Yes Yes -Correct Procedure Yes Yes Yes -Procedure Performed Yes Yes Yes -Type of Procedure Debridement Debridement Debridement -Clinical Debridement Subcutaneous Subcutaneous Subcutaneous -Post Debridement Size (cm) - Length 1.6 1.5 1.8 -Post Debridement Size (cm) - Width 1.4 1.3 1.5 -Post Debridement Size (cm) - Depth 0.3 0.3 0.3 -Total Square Cm 2.24 1.95 2.70 -Wound/Ulcer Outcome Not Healed Not Healed Not Healed -Ulcer Cleansing Rinsed/ Rinsed/ Rinsed/ Irrigated with Irrigated with Irrigated with Saline Saline Saline -Foul Odor after Cleansing No No No -Bioengineered Tissue Yes Yes Yes -Type of bioengineered Tissue EPIFIX EPIFIX EPIFIX -Expiration Date 08/17/24 08/17/24 09/16/24 -Product Lot Number [id number] -Percent Used 100 100 100 -Saline Lot Number [id number] -Bleeding Controlled with Pressure Pressure Pressure -Offloading Yes Yes Yes -Type of Offloading Camwalker Total Contact Total Contact Cast (TCC) Cast (TCC) -Treatment Response Procedure Procedure Procedure Tolerated Well Tolerated Well Tolerated Well Pain Scale: 0-10 Numeric Is Patient Pain Free? Yes Yes Yes 01/07/20 01/09/20 12:58 12:03 Wound Center Nurse 2 #13 R 2nd finger -Time 12:58 12:03 -Correct Patient Yes No -Correct Side, Site, Position Yes No -Correct Procedure Yes No -Procedure Performed Yes No -Type of Procedure Debridement -Clinical Debridement Subcutaneous -Post Debridement Size (cm) - Length 1.8 -Post Debridement Size (cm) - Width 0.7 -Post Debridement Size (cm) - Depth 0.2 -Total Square Cm 1.26 -Wound/Ulcer Outcome Not Healed -Ulcer Cleansing Rinsed/ Irrigated with Saline -Foul Odor after Cleansing No -Bioengineered Tissue No No -Expiration Date 09/16/24 -Product Lot Number [id number] -Percent Used 100 -Saline Lot Number [id number] -Bleeding Controlled with Pressure -Offloading No No -Treatment Response Procedure Tolerated Well 11. L plantar -Time 12:05 -Correct Patient Yes -Correct Side, Site, Position Yes -Correct Procedure Yes -Procedure Performed Yes -Type of Procedure Debridement -Clinical Debridement Subcutaneous -Post Debridement Size (cm) - Length 1.6 -Post Debridement Size (cm) - Width 1.5 -Post Debridement Size (cm) - Depth 0.2 -Total Square Cm 2.40 -Wound/Ulcer Outcome Not Healed -Ulcer Cleansing Rinsed/ Irrigated with Saline -Foul Odor after Cleansing No -Bioengineered Tissue Yes -Type of bioengineered Tissue EPIFIX -Expiration Date 09/16/24 -Product Lot Number [id number] -Percent Used 100 -Saline Lot Number [id number] -Bleeding Controlled with Pressure -Offloading Yes -Type of Offloading Total Contact Cast (TCC) -Treatment Response Procedure Tolerated Well Pain Scale: 0-10 Numeric Is Patient Pain Free? Yes Yes Wound debrided: plantar lateral foot Laterality: Left Wound Grade/Stage: grade 3 Type of Debridement: Excisional debridement Anesthesia Used: 5% Lidocaine Gel Depth: in the subcutaneous layer Percentage of wound debrided: 100 Instrument Used: #15 blade Tissue Removed: fibrous, devitalized subcutaneous, biofilm, slough Severity: Fat Layer Exposed Amount of bleeding with debridement: Mild Bleeding Controlled with: Pressure Patient tolerated procedure well Assessment/Plan Active Problems (Last Updated 01/09/20 @ 13:[address] 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 grade 3 treated medically Delayed wound healing (Chronic) Malnutrition (Chronic) Type 2 diabetes mellitus with diabetic polyneuropathy (Chronic) Assessment: Left foot ulcer with capsule/muscle tissue exposed, Rousseau grade 3 treated for infection/bacterial colonization. Onychauxis versus onychomycosis with neuropathy risk. Left foot deformities including tailor bunion and hammertoe. Peripheral vascular disease. Diabetes with polyneuropathy. Malnutrition. Delayed healing. Raynaud's disease Plan: I reviewed and discussed his case today. Subcutaneous excisional debridement was performed as noted in the clinical panel to left foot. He has completed oral antibiotics including Augmentin and ciprofloxacin based off of his prior culture results and appears to be doing better. I recommend application of advanced wound healing product this week, epi-fix. This was applied according to standard protocol 100% of the product was performed. This is medically necessary for limb salvage. He understands the indications, planned application, anticipated healing time and management. He tolerated this well. He was advised to keep his dressing clean, dry, and intact until follow- up next week. To continue proper glycemic control nutritional supplementation optimize healing. Is noted his last hemoglobin A1c we have on file here is 5.9%. This is a chronic ulceration has been present for approximately 10 months. I recommend application of advanced wound healing product. He was advised to follow-up with his vascular surgeon, Dr. Pena as scheduled. He had recent updated vascular studies performed and Dr. Pena is considering additional intervention. I recommend proceeding if there are options available. Due to the increased depth he did also go through a recent osteomyelitis work- up. Osteomyelitis signs were not apparent on the MRI and this will be monitored very closely. Compliance was discussed. He was reassured there are no local signs of infection on the foot today. I answered his questions. He had prior capsule muscle tissue exposed and that further was infected per his culture results which would qualify and is awaiting grade 3. Hyperbaric oxygen therapy is an option for him and he was advised to continue. He has been doing well. Additionally, a well-padded total contact cast was applied with the lower extremity in a rectus position. Verbal consent was obtained and he tolerated this well. He was advised the this clean, dry, and intact until follow-up next week. He denies being claustrophobic. We also discussed surgical intervention such as fourth metatarsal head resection. He defers today. I encouraged him to continue to think about this. Nonemergent surgical procedure are pending at this time to coronavirus pandemic and he understands he will need to wait until this restriction has been lifted to proceed forward. He relates he also would not be able to stay off of it to allow healing. 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 Advised on moving forward with surgical intervention if he is able to allow healing in the postoperative setting. Other options include going on a complex palliative type of the plan. He would like more time to think about this. To return to the wound healing center in 1 week or call sooner if he has any questions or concerns.
[2020-01-10 09:51] LABS: Bedside Glucose 211 mg/dL (70-110)
[2020-01-10 10:58] VITALS: BP 110/67; BP 123/67; PULSE 68; PULSE 78; RESP 16; RESP 18; TEMP 36.1; TEMP 36.3
--- NOTE | 2020-01-10 11:18 | PCM.HBO.PN ---
History of Present Illness Date of Service: 01/10/20 Presenting Chief Complaint: Recent frostbite right long finger with nonhealing necrotic ulcer. RICK GEORGE Jr. is a 59 year old currently undergoing hyperbaric oxygen therapy for left plantar Rousseau grade 3 diabetic foot ulcer. Progress: Today represents the 12th hyperbaric oxygen therapy treatment of 40 planned sessions. Tolerance of hyperbaric oxygen therapy: Hyperbaric oxygen treatment was provided as per the facility's protocol at 2.0 VINNY and 100% oxygen for 90 minutes. The patient tolerated hyperbaric oxygen well, without complications or complaints. Upon emergence of the hyperbaric chamber the patient's vital signs remained stable. The patient did have barotrauma that occurred to the bilateral TMs after his first HBO treatment and therefore he received bilateral tympanostomy tubes on 12/20/2019. The patient denies any discomfort or pain. Past Medical History Chronic Problems (Last Updated 01/09/20 @ 13:[address] 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 Zhu of [facility] Essential (primary) hypertension (Chronic) Other specified peripheral vascular diseases (Chronic) Skin ulcer of finger with fat layer exposed (Chronic) necrotic ulcer dorsum right long finger at DIP joint 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) Allergies/Adverse Reactions: Allergies atorvastatin Adverse Reaction (Verified 08/23/19 12:36) Unknown metformin Adverse Reaction (Verified 08/23/19 12:36) Diarrhea Home Medications: Ambulatory Orders Medication Instructions Recorded Ammonium Lactate [Amlactin] 57 gm TP PRN PRN 10/04/17 Celecoxib [Celebrex] 200 mg PO DAILY 10/04/17 Cholecalciferol (Vitamin D3) 5,000 unit PO DAILY 10/04/17 [Vitamin D3] Levomefolate/B6/B12/Algal Oil 1 ea PO DAILY 10/04/17 [Metanx Capsule] Nortriptyline HCl 50 mg PO QHS 10/04/17 Biotin 1 mg PO DAILY 04/01/18 Desonide 0.05% [Desowen 0.05% 1 applic TOPICAL BID 04/01/18 Cream] Diflorasone Diacetate [Psorcon] 1 applicatio TP BID PRN 04/01/18 Insulin Glargine,Hum.rec.anlog 20 unit SQ QHS 04/01/18 [Basaglar Kwikpen U-100] Insulin Lispro [Humalog KwikPen] See Protocol SQ TIDCM 04/01/18 Ketoconazole [Nizoral] 1 applic TOPICAL DAILY PRN 04/01/18 Magnesium 250 mg PO DAILY 04/01/18 metoprolol tartrate 25 mg tablet 12.5 mg PO BID tab MDD 1.5 tabs 07/19/18 lisinopril 5 mg tablet 5 mg PO QDAY #30 tab 03/19/19 albuterol sulfate 90 mcg/actuation 2 puff INHALATION Q4H PRN g 08/13/19 aerosol inhaler amlodipine 10 mg tablet 10 mg PO DAILY 08/13/19 becaplermin 0.01 % topical gel 1 applic TOPICAL DAILY 08/13/19 cetirizine 10 mg tablet 10 mg PO DAILY 08/13/19 gabapentin 300 mg capsule 900 mg PO TID cap 08/13/19 nifedipine 30 mg tablet,extended 30 mg PO DAILY 08/13/19 release simvastatin 10 mg tablet 10 mg PO QHS 08/13/19 vardenafil 20 mg tablet 20 mg PO DAILY PRN 08/13/19 Cyanocobalamin [Vitamin B12] 1,000 mcg IM Q30D 08/22/19 aspirin 81 mg tablet,delayed 162 mg PO DAILY tab MDD . 12/27/19 release baclofen 20 mg tablet 30 mg PO TID tab 10/12/19 cephalexin 500 mg capsule 500 mg PO Q6H cap 10/12/19 famotidine 20 mg tablet 20 mg PO DAILY PRN 10/12/19 furosemide 20 mg tablet 20 mg PO BID PRN tab 10/12/19 Maternal Family History: Family History (Last Reviewed 10/18/19 @ 11:24 by Linda Leon) Other Arthritis Hypertension Family History: Diabetes Paternal Family History: Family History (Last Reviewed 10/18/19 @ 11:24 by Linda Leon) Other Arthritis Hypertension Family History: Diabetes Lives: Alone Smoking Status: Current every day smoker Alcohol: None Drugs: None Physical Exam Vital Signs Temp Pulse Resp BP 97.3 F L 78 18 123/67 H 01/10/20 10:58 01/10/20 10:58 01/10/20 10:58 01/10/20 10:58 General: Alert, Oriented x3, Cooperative, No apparent distress HEENT: Atraumatic, Normocephalic, TM's Clear - Tubes in place. Lungs: Normal air movement Psych/Mental Status: Normal Affect Assessment/Plan Active Problems (Last Updated 01/09/20 @ 13:[address] 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 grade 3 treated medically Delayed wound healing (Chronic) Malnutrition (Chronic) Type 2 diabetes mellitus with diabetic polyneuropathy (Chronic) The patient tolerated hyperbaric oxygen therapy well without any issues or concerns and will continue according to his medical plan. HBO Supervision.
[2020-01-10 11:56] LABS: Bedside Glucose 184 mg/dL (70-110)
[2020-01-11 09:46] LABS: Bedside Glucose 94 mg/dL (70-110)
[2020-01-11 10:26] LABS: Bedside Glucose 107 mg/dL (70-110)
[2020-01-11 10:46] LABS: Bedside Glucose 112 mg/dL (70-110)
[2020-01-11 10:55] VITALS: BP 106/87; BP 124/79; PULSE 72; PULSE 78; RESP 16; RESP 18; TEMP 36.4
[2020-01-11 12:46] LABS: Bedside Glucose 154 mg/dL (70-110)
--- NOTE | 2020-01-11 15:39 | PCM.HBO.PN ---
History of Present Illness Date of Service: 01/11/20 Presenting Chief Complaint: Rousseau grade 3 diabetic foot ulcer, left plantar foot RICK GEORGE Jr. is a 59 year old currently undergoing hyperbaric oxygen therapy for left plantar Rousseau grade 3 diabetic foot ulcer. Progress: Today represents the 14th hyperbaric oxygen therapy treatment of 40 planned sessions. Tolerance of hyperbaric oxygen therapy: Hyperbaric oxygen treatment was provided as per the facility's protocol at 2.0 VINNY and 100% oxygen for 90 minutes. The patient tolerated hyperbaric oxygen well, without complications or complaints. Upon emergence of the hyperbaric chamber the patient's vital signs remained stable. The patient did have barotrauma that occurred to the bilateral TMs after his first HBO treatment and therefore he received bilateral tympanostomy tubes on 12/20/2019. The patient denies any discomfort or pain. Past Medical History Chronic Problems (Last Updated 01/09/20 @ 13:[address] 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) Allergies/Adverse Reactions: Allergies atorvastatin Adverse Reaction (Verified 08/23/19 12:36) Unknown metformin Adverse Reaction (Verified 08/23/19 12:36) Diarrhea Home Medications: Ambulatory Orders Medication Instructions Recorded Ammonium Lactate [Amlactin] 57 gm TP PRN PRN 10/04/17 Celecoxib [Celebrex] 200 mg PO DAILY 10/04/17 Cholecalciferol (Vitamin D3) 5,000 unit PO DAILY 10/04/17 [Vitamin D3] Levomefolate/B6/B12/Algal Oil 1 ea PO DAILY 10/04/17 [Metanx Capsule] Nortriptyline HCl 50 mg PO QHS 10/04/17 Biotin 1 mg PO DAILY 04/01/18 Desonide 0.05% [Desowen 0.05% 1 applic TOPICAL BID 04/01/18 Cream] Diflorasone Diacetate [Psorcon] 1 applicatio TP BID PRN 04/01/18 Insulin Glargine,Hum.rec.anlog 20 unit SQ QHS 04/01/18 [Basaglar Kwikpen U-100] Insulin Lispro [Humalog KwikPen] See Protocol SQ TIDCM 04/01/18 Ketoconazole [Nizoral] 1 applic TOPICAL DAILY PRN 04/01/18 Magnesium 250 mg PO DAILY 04/01/18 metoprolol tartrate 25 mg tablet 12.5 mg PO BID tab MDD 1.5 tabs 07/19/18 lisinopril 5 mg tablet 5 mg PO QDAY #30 tab 03/19/19 albuterol sulfate 90 mcg/actuation 2 puff INHALATION Q4H PRN g 08/13/19 aerosol inhaler amlodipine 10 mg tablet 10 mg PO DAILY 08/13/19 becaplermin 0.01 % topical gel 1 applic TOPICAL DAILY 08/13/19 cetirizine 10 mg tablet 10 mg PO DAILY 08/13/19 gabapentin 300 mg capsule 900 mg PO TID cap 08/13/19 nifedipine 30 mg tablet,extended 30 mg PO DAILY 08/13/19 release simvastatin 10 mg tablet 10 mg PO QHS 08/13/19 vardenafil 20 mg tablet 20 mg PO DAILY PRN 08/13/19 Cyanocobalamin [Vitamin B12] 1,000 mcg IM Q30D 08/22/19 aspirin 81 mg tablet,delayed 162 mg PO DAILY tab MDD . 10/12/19 release baclofen 20 mg tablet 30 mg PO TID tab 10/12/19 cephalexin 500 mg capsule 500 mg PO Q6H cap 10/12/19 famotidine 20 mg tablet 20 mg PO DAILY PRN 10/12/19 furosemide 20 mg tablet 20 mg PO BID PRN tab 10/12/19 Maternal Family History: Family History (Last Reviewed 10/18/19 @ 11:24 by Linda Leon) Other Arthritis Hypertension Family History: Diabetes Paternal Family History: Family History (Last Reviewed 10/18/19 @ 11:24 by Linda Leon) Other Arthritis Hypertension Family History: Diabetes Lives: Alone Smoking Status: Current every day smoker Alcohol: None Drugs: None Physical Exam Vital Signs Temp Pulse Resp BP 97.5 F L 78 18 106/87 H 01/11/20 10:55 01/11/20 10:55 01/11/20 10:55 01/11/20 10:55 General: Alert, Oriented x3, Cooperative, No apparent distress Psych/Mental Status: Normal Affect, Appropriate Assessment/Plan Active Problems (Last Updated 01/09/20 @ 13:[address] 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 grade 3 treated medically Delayed wound healing (Chronic) Malnutrition (Chronic) Type 2 diabetes mellitus with diabetic polyneuropathy (Chronic) The patient tolerated hyperbaric oxygen therapy well without any issues or concerns and will continue according to his medical plan.
[2020-01-14 09:42] VITALS: BP 129/73; PULSE 77; RESP 18; TEMP 536.2; TEMP 997.1; BMI 28.7
[2020-01-14 10:36] LABS: Bedside Glucose 197 mg/dL (70-110)
[2020-01-14 10:44] VITALS: BP 129/73; PULSE 77; RESP 20; TEMP 36.1; TEMP 36.2
[2020-01-14 12:26] LABS: Bedside Glucose 47 mg/dL (70-110)
--- NOTE | 2020-01-14 13:03 | PCM.WC.PN ---
(1) Skin ulcer of finger with fat layer exposed Status: Chronic Code(s): L98.492 - Non-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ulcer of skin of other sites with fat layer exposed Comment: necrotic ulcer dorsum right long finger at DIP joint (2) History of frostbite Status: Chronic Code(s): Z91.89 - Other specified personal risk factors, not elsewhere classified Comment: left long finger, right index finger, right long finger, and right ring finger (3) Tobacco abuse Status: Chronic Code(s): Z72.0 - Tobacco use (4) Raynaud disease Status: Chronic Code(s): I73.00 - Raynaud's syndrome without gangrene (5) Type 2 diabetes mellitus with diabetic polyneuropathy Status: Chronic Code(s): E11.42 - Type 2 diabetes mellitus with diabetic polyneuropathy Type of Wound Date of Service: 01/14/20 Chief Complaint: Recent frostbite right long finger with nonhealing necrotic ulcer History of Wound: 59-year-old man with a history of diabetes who is presently being seen for a left diabetic foot ulcer has some skin necrosis on the dorsum right long finger at the DIP joint. He sustained frostbite back on October 03, 2019 involving his left long finger, right index finger, right long finger, and right ring finger. He was seen at [facility]. After careful observation to look for areas of demarcation, all the fingers survived with the exception of some skin necrosis on the right long finger. He became concerned recently because of increased pain and drainage from the eschar. Patient is right hand dominant. A wound culture from 01/07/20 was positive for Staphylococcus aureas. He has been placed on Doxycycline for this.Today denies any fevers. Patient states he has a good appetite. Progress of Wound: Improving - Physical Exam Vital Signs Temp Pulse Resp BP 97.0 F L 77 20 H 129/73 H 01/14/20 10:44 01/14/20 10:44 01/14/20 10:44 01/14/20 10:44 General: Alert, Oriented x3, Cooperative HEENT: Atraumatic Oral: Moist Mucosa Lungs: Normal air movement Cardiovascular: Regular rate Abdomen: Obese Extremities: Capillary Refill Less than 3 Seconds, Edema, Tenderness - He has stiffness of his right long finger (which is not new per patient - from his chronic Rynaud's) He can almost make a fist. Skin: Ulcer/ Wound - Right long finger, dorsal aspect ulcer over the DIP joint. Wound Measurements and Assessment - Nurse 1 - General Ulcer Measurement Start: 12/19/19 10:41 Freq: Status: Active Protocol: Activity Type Activity Date Activity User E-Sign Co-Sign Detail Recorded Client Recorded Date Recorded By Document 01/14/20 09:42 DL [id number] 01/14/20 09:46 DL 01/14/20 09:42 Wound Center Nurse 1 [Ulcer Assessment] #13 R 2nd finger -Current Size (cm) - Length 1.2 -Current Size (cm) - Width 1.9 -Current Size (cm) - Depth 0.2 -Total Square Cm 2.28 -Photo Taken No -Exudate Amt Small -Exudate Type Serosanguineous -Wound Margin Distinct, Outline Attached -Granulation Amt Medium (34-66%) -Granulation Quality Red -Necrosis Amt Medium (34-66%) -Necrotic Tissue Type Adherent Slough -Structure Exposed N/A -Texture (Mechelle-wound Skin Appearance) Scarring -Moisture (Mechelle-wound Skin Appearance Dry/Scaly ) -Color (Mechelle-wound Skin Appearance) No Abnormality -Temperature (Mechelle-wound Skin No Abnormality Appearance) (Pt Warm) -Tenderness on Palpation (Mechelle-wound No Skin Appearance) -Ulcer Cleansing Rinsed/ Irrigated with Saline -Foul Odor after Cleansing No -Anesthetic Used 4% Lidocaine Solution,5% Lidocaine Gel - Nurse 2 - General Ulcer CM Notes Start: 12/19/19 10:41 Freq: Status: Active Protocol: Activity Type Activity Date Activity User E-Sign Co-Sign Detail Recorded Client Recorded Date Recorded By Document 01/14/20 10:03 MW [id number] 01/14/20 10:06 MW 01/14/20 10:03 Wound Center Nurse 2 [Procedure/Treatment] -Time 10:04 -Correct Patient Yes -Correct Side, Site, Position Yes -Correct Procedure Yes -Procedure Performed Yes -Type of Procedure Debridement -Clinical Debridement Subcutaneous -Post Debridement Size (cm) - Length 1.7 -Post Debridement Size (cm) - Width 2.2 -Post Debridement Size (cm) - Depth 0.2 -Total Square Cm 3.74 -Wound/Ulcer Outcome Not Healed -Ulcer Cleansing Rinsed/ Irrigated with Saline -Foul Odor after Cleansing No -Bioengineered Tissue No -Bleeding Controlled with Pressure -Offloading No -Treatment Response Procedure Tolerated Well [See Physician Procedure note for Specifics] Pain Scale: 0-10 Numeric [Pain] -Is Patient Pain Free? Yes Musculoskeletal: Tenderness Neurological: Neuro grossly intact Psych/Mental Status: Normal Affect, Appropriate Debridement Note Post-Debridement Measurements/Treatment WC - Nurse 2 - General Ulcer CM Notes Start: 12/19/19 10:41 Freq: Status: Active Protocol: Activity Type Activity Date Activity User E-Sign Co-Sign Detail Recorded Client Recorded Date Recorded By Document 12/19/19 11:09 JF [id number] 12/19/19 11:10 JF Document 12/26/19 12:06 JF [id number] 12/26/19 12:08 JF Document 01/02/20 11:51 JF [id number] 01/02/20 11:53 JF Document 01/07/20 12:58 JF [id number] 01/07/20 12:59 JF Document 01/09/20 12:03 CP [id number] 01/09/20 12:06 CP Document 01/14/20 10:03 MW [id number] 01/14/20 10:06 MW 12/19/19 12/26/19 01/02/20 11:09 12:06 11:51 Wound Center Nurse 2 #13 R 2nd finger -Time -Correct Patient -Correct Side, Site, Position -Correct Procedure -Procedure Performed -Type of Procedure -Clinical Debridement -Post Debridement Size (cm) - Length -Post Debridement Size (cm) - Width -Post Debridement Size (cm) - Depth -Total Square Cm -Wound/Ulcer Outcome -Ulcer Cleansing -Foul Odor after Cleansing -Bioengineered Tissue -Expiration Date -Product Lot Number -Percent Used -Saline Lot Number -Bleeding Controlled with -Offloading -Treatment Response 11. L plantar -Time 11:09 12:07 11:51 -Correct Patient Yes Yes Yes -Correct Side, Site, Position Yes Yes Yes -Correct Procedure Yes Yes Yes -Procedure Performed Yes Yes Yes -Type of Procedure Debridement Debridement Debridement -Clinical Debridement Subcutaneous Subcutaneous Subcutaneous -Post Debridement Size (cm) - Length 1.6 1.5 1.8 -Post Debridement Size (cm) - Width 1.4 1.3 1.5 -Post Debridement Size (cm) - Depth 0.3 0.3 0.3 -Total Square Cm 2.24 1.95 2.70 -Wound/Ulcer Outcome Not Healed Not Healed Not Healed -Ulcer Cleansing Rinsed/ Rinsed/ Rinsed/ Irrigated with Irrigated with Irrigated with Saline Saline Saline -Foul Odor after Cleansing No No No -Bioengineered Tissue Yes Yes Yes -Type of bioengineered Tissue EPIFIX EPIFIX EPIFIX -Expiration Date 08/17/24 08/17/24 09/16/24 -Product Lot Number [id number] -Percent Used 100 100 100 -Saline Lot Number [id number] -Bleeding Controlled with Pressure Pressure Pressure -Offloading Yes Yes Yes -Type of Offloading Camwalker Total Contact Total Contact Cast (TCC) Cast (TCC) -Treatment Response Procedure Procedure Procedure Tolerated Well Tolerated Well Tolerated Well Pain Scale: 0-10 Numeric Is Patient Pain Free? Yes Yes Yes 01/07/20 01/09/20 01/14/20 12:58 12:03 10:03 Wound Center Nurse 2 #13 R 2nd finger -Time 12:58 12:03 10:04 -Correct Patient Yes No Yes -Correct Side, Site, Position Yes No Yes -Correct Procedure Yes No Yes -Procedure Performed Yes No Yes -Type of Procedure Debridement Debridement -Clinical Debridement Subcutaneous Subcutaneous -Post Debridement Size (cm) - Length 1.8 1.7 -Post Debridement Size (cm) - Width 0.7 2.2 -Post Debridement Size (cm) - Depth 0.2 0.2 -Total Square Cm 1.26 3.74 -Wound/Ulcer Outcome Not Healed Not Healed -Ulcer Cleansing Rinsed/ Rinsed/ Irrigated with Irrigated with Saline Saline -Foul Odor after Cleansing No No -Bioengineered Tissue No No No -Expiration Date 09/16/24 -Product Lot Number [id number] -Percent Used 100 -Saline Lot Number [id number] -Bleeding Controlled with Pressure Pressure -Offloading No No No -Treatment Response Procedure Procedure Tolerated Well Tolerated Well 11. L plantar -Time 12:05 -Correct Patient Yes -Correct Side, Site, Position Yes -Correct Procedure Yes -Procedure Performed Yes -Type of Procedure Debridement -Clinical Debridement Subcutaneous -Post Debridement Size (cm) - Length 1.6 -Post Debridement Size (cm) - Width 1.5 -Post Debridement Size (cm) - Depth 0.2 -Total Square Cm 2.40 -Wound/Ulcer Outcome Not Healed -Ulcer Cleansing Rinsed/ Irrigated with Saline -Foul Odor after Cleansing No -Bioengineered Tissue Yes -Type of bioengineered Tissue EPIFIX -Expiration Date 09/16/24 -Product Lot Number [id number] -Percent Used 100 -Saline Lot Number [id number] -Bleeding Controlled with Pressure -Offloading Yes -Type of Offloading Total Contact Cast (TCC) -Treatment Response Procedure Tolerated Well Pain Scale: 0-10 Numeric Is Patient Pain Free? Yes Yes Yes Wound debrided: Long finger, dorsal aspect ulcer over DIP joint Laterality: Right Type of Debridement: Excisional debridement Anesthesia Used: 4% Lidocaine Solution, 5% Lidocaine Gel Depth: Down to and including healthy tissue, in the subcutaneous layer Percentage of wound debrided: 100 Instrument Used: 3mm curette Tissue Removed: Subcutaneous tissue and slough Severity: Fat Layer Exposed Amount of bleeding with debridement: Mild Bleeding Controlled with: Pressure Patient tolerated procedure well Assessment/Plan Active Problems (Last Updated 01/09/20 @ 13:[address] 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 grade 3 treated medically Delayed wound healing (Chronic) Malnutrition (Chronic) Peripheral vascular disease (Chronic) Type 2 diabetes mellitus with diabetic polyneuropathy (Chronic) Assessment: 1. Nonhealing necrotic ulcer dorsum right long finger at DIP joint. 2. Diabetes mellitus. 3. History of recent frostbite. 4. Raynaud's disease. 5. Peripheral vascular disease. 6. Smoker. Plan: Wound Care- Moistened Tegan dressing changes to the right long finger wound daily. Encourage range of motion exercises to minimize stiffness. A wound culture from 01/07/20 was positive for Staphylococcus aureas. He has been placed on Doxycycline for this. His HgbA1c from 08/23/19 was 6.1. His last Prealbumin from 03/04/17 was 24.1. Encourage nutritional supplementation with protein to help the healing process. He is currently getting HBO for a left diabetic foot ulcer which should help to heal his right long finger wound. If healing is delayed, he would need operative debridement with skin flap or skin graft reconstruction. With his history of Raynaud's and peripheral vascular disease and smoking, he is at increased risk of developing wound healing problems and possible osteomyelitis that would lead to an eventual amputation. He voices understanding. Will also check a finger x-ray. Followup two weeks. Encouraged the patient to stop smoking as it may have deleterious effects on wound healing. [id number]: [id number] Lelia subq tissue 20 sq cm/<
--- NOTE | 2020-01-14 13:05 | PCM.HBO.PN ---
History of Present Illness Date of Service: 01/14/20 Presenting Chief Complaint: Rousseau grade 3 diabetic foot ulcer, left plantar foot RICK GEORGE Jr. is a 59 year old currently undergoing hyperbaric oxygen therapy for left plantar Rousseau grade 3 diabetic foot ulcer. Progress: Today represents the 15th hyperbaric oxygen therapy treatment of 40 planned sessions. Tolerance of hyperbaric oxygen therapy: Hyperbaric oxygen treatment was provided as per the facility's protocol at 2.0 VINNY and 100% oxygen for 90 minutes. The patient tolerated hyperbaric oxygen well, without complications or complaints. Upon emergence of the hyperbaric chamber the patient's vital signs remained stable. The patient did have barotrauma that occurred to the bilateral TMs after his first HBO treatment and therefore he received bilateral tympanostomy tubes on 12/20/2019. The patient denies any discomfort or pain. Past Medical History Chronic Problems (Last Updated 01/09/20 @ 13:[address] 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) Allergies/Adverse Reactions: Allergies atorvastatin Adverse Reaction (Verified 08/23/19 12:36) Unknown metformin Adverse Reaction (Verified 08/23/19 12:36) Diarrhea Home Medications: Ambulatory Orders Medication Instructions Recorded Ammonium Lactate [Amlactin] 57 gm TP PRN PRN 10/04/17 Celecoxib [Celebrex] 200 mg PO DAILY 10/04/17 Cholecalciferol (Vitamin D3) 5,000 unit PO DAILY 10/04/17 [Vitamin D3] Levomefolate/B6/B12/Algal Oil 1 ea PO DAILY 10/04/17 [Metanx Capsule] Nortriptyline HCl 50 mg PO QHS 10/04/17 Biotin 1 mg PO DAILY 04/01/18 Desonide 0.05% [Desowen 0.05% 1 applic TOPICAL BID 04/01/18 Cream] Diflorasone Diacetate [Psorcon] 1 applicatio TP BID PRN 04/01/18 Insulin Glargine,Hum.rec.anlog 20 unit SQ QHS 04/01/18 [Basaglar Kwikpen U-100] Insulin Lispro [Humalog KwikPen] See Protocol SQ TIDCM 04/01/18 Ketoconazole [Nizoral] 1 applic TOPICAL DAILY PRN 04/01/18 Magnesium 250 mg PO DAILY 04/01/18 metoprolol tartrate 25 mg tablet 12.5 mg PO BID tab MDD 1.5 tabs 07/19/18 lisinopril 5 mg tablet 5 mg PO QDAY #30 tab 03/19/19 albuterol sulfate 90 mcg/actuation 2 puff INHALATION Q4H PRN g 08/13/19 aerosol inhaler amlodipine 10 mg tablet 10 mg PO DAILY 08/13/19 becaplermin 0.01 % topical gel 1 applic TOPICAL DAILY 08/13/19 cetirizine 10 mg tablet 10 mg PO DAILY 08/13/19 gabapentin 300 mg capsule 900 mg PO TID cap 08/13/19 nifedipine 30 mg tablet,extended 30 mg PO DAILY 08/13/19 release simvastatin 10 mg tablet 10 mg PO QHS 08/13/19 vardenafil 20 mg tablet 20 mg PO DAILY PRN 08/13/19 Cyanocobalamin [Vitamin B12] 1,000 mcg IM Q30D 08/22/19 aspirin 81 mg tablet,delayed 162 mg PO DAILY tab MDD . 10/12/19 release baclofen 20 mg tablet 30 mg PO TID tab 10/12/19 cephalexin 500 mg capsule 500 mg PO Q6H cap 10/12/19 famotidine 20 mg tablet 20 mg PO DAILY PRN 10/12/19 furosemide 20 mg tablet 20 mg PO BID PRN tab 10/12/19 Maternal Family History: Family History (Last Reviewed 10/18/19 @ 11:24 by Linda Leon) Other Arthritis Hypertension Family History: Diabetes Paternal Family History: Family History (Last Reviewed 10/18/19 @ 11:24 by Linda Leon) Other Arthritis Hypertension Family History: Diabetes Lives: Alone Smoking Status: Current every day smoker Alcohol: None Drugs: None Physical Exam Vital Signs Temp Pulse Resp BP 97.0 F L 77 20 H 129/73 H 01/14/20 10:44 01/14/20 10:44 01/14/20 10:44 01/14/20 10:44 General: Alert, Oriented x3, Cooperative HEENT: Atraumatic, TM's Clear - Tubes visible bilateral TM. Right ear is having increase of light yellow, clear drainage. Lungs: Clear to auscultation, Normal air movement Cardiovascular: Regular rate, Regular Rhythm Psych/Mental Status: Normal Affect, Appropriate Assessment/Plan Active Problems (Last Updated 01/09/20 @ 13:[address] 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 grade 3 treated medically Delayed wound healing (Chronic) Malnutrition (Chronic) Type 2 diabetes mellitus with diabetic polyneuropathy (Chronic) The patient tolerated hyperbaric oxygen therapy well without any issues or concerns and will continue according to his medical plan. Blood sugar before HBOT was 197. After therapy he was 47 and asymptomatic. He was given a Glucerna and after waiting 30 minutes his recheck BGT was 83. He continues to be asymptomatic. He states that he woke up at 2 am very hungry and his BGT was 37. He ate peanut butter crackers at that time and this morning before leaving to come to the wound center he was 230. He wasn't hungry so he didn't eat any breakfast. Instructed him to make sure to eat breakfast before HBOT with protein. Reviewed what foods contain protein. [id number]
[2020-01-14 13:16] LABS: Bedside Glucose 83 mg/dL (70-110)
--- NOTE | 2020-01-15 10:48 | PCM.HBO.PN ---
History of Present Illness Date of Service: 01/15/20 Presenting Chief Complaint: Rousseau grade 3 diabetic foot ulcer, left plantar foot RICK GEORGE Jr. is a 59 year old currently undergoing hyperbaric oxygen therapy for left plantar Rousseau grade 3 diabetic foot ulcer. Progress: Today represents the 16th hyperbaric oxygen therapy treatment of 40 planned sessions. Tolerance of hyperbaric oxygen therapy: Hyperbaric oxygen treatment was provided as per the facility's protocol at 2.0 VINNY and 100% oxygen for 90 minutes. The patient tolerated hyperbaric oxygen well, without complications or complaints. Upon emergence of the hyperbaric chamber the patient's vital signs remained stable. The patient did have barotrauma that occurred to the bilateral TMs after his first HBO treatment and therefore he received bilateral tympanostomy tubes on 12/20/2019. See documented blood glucose levels. Past Medical History Chronic Problems (Last Updated 01/09/20 @ 13:[address] 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) Allergies/Adverse Reactions: Allergies atorvastatin Adverse Reaction (Verified 08/23/19 12:36) Unknown metformin Adverse Reaction (Verified 08/23/19 12:36) Diarrhea Home Medications: Ambulatory Orders Medication Instructions Recorded Ammonium Lactate [Amlactin] 57 gm TP PRN PRN 10/04/17 Celecoxib [Celebrex] 200 mg PO DAILY 10/04/17 Cholecalciferol (Vitamin D3) 5,000 unit PO DAILY 10/04/17 [Vitamin D3] Levomefolate/B6/B12/Algal Oil 1 ea PO DAILY 10/04/17 [Metanx Capsule] Nortriptyline HCl 50 mg PO QHS 10/04/17 Biotin 1 mg PO DAILY 04/01/18 Desonide 0.05% [Desowen 0.05% 1 applic TOPICAL BID 04/01/18 Cream] Diflorasone Diacetate [Psorcon] 1 applicatio TP BID PRN 04/01/18 Insulin Glargine,Hum.rec.anlog 20 unit SQ QHS 04/01/18 [Basaglar Kwikpen U-100] Insulin Lispro [Humalog KwikPen] See Protocol SQ TIDCM 04/01/18 Ketoconazole [Nizoral] 1 applic TOPICAL DAILY PRN 04/01/18 Magnesium 250 mg PO DAILY 04/01/18 metoprolol tartrate 25 mg tablet 12.5 mg PO BID tab MDD 1.5 tabs 07/19/18 lisinopril 5 mg tablet 5 mg PO QDAY #30 tab 03/19/19 albuterol sulfate 90 mcg/actuation 2 puff INHALATION Q4H PRN g 08/13/19 aerosol inhaler amlodipine 10 mg tablet 10 mg PO DAILY 08/13/19 becaplermin 0.01 % topical gel 1 applic TOPICAL DAILY 08/13/19 cetirizine 10 mg tablet 10 mg PO DAILY 08/13/19 gabapentin 300 mg capsule 900 mg PO TID cap 08/13/19 nifedipine 30 mg tablet,extended 30 mg PO DAILY 08/13/19 release simvastatin 10 mg tablet 10 mg PO QHS 08/13/19 vardenafil 20 mg tablet 20 mg PO DAILY PRN 08/13/19 Cyanocobalamin [Vitamin B12] 1,000 mcg IM Q30D 08/22/19 aspirin 81 mg tablet,delayed 162 mg PO DAILY tab MDD . 10/12/19 release baclofen 20 mg tablet 30 mg PO TID tab 10/12/19 cephalexin 500 mg capsule 500 mg PO Q6H cap 10/12/19 famotidine 20 mg tablet 20 mg PO DAILY PRN 10/12/19 furosemide 20 mg tablet 20 mg PO BID PRN tab 10/12/19 Maternal Family History: Family History (Last Reviewed 10/18/19 @ 11:24 by Linda Leon) Other Arthritis Hypertension Family History: Diabetes Paternal Family History: Family History (Last Reviewed 10/18/19 @ 11:24 by Linda Leon) Other Arthritis Hypertension Family History: Diabetes Lives: Alone Smoking Status: Current every day smoker Alcohol: None Drugs: None Physical Exam Vital Signs Temp Pulse Resp BP 97.0 F L 77 20 H 129/73 H 01/14/20 10:44 01/14/20 10:44 01/14/20 10:44 01/14/20 10:44 General: Alert, Oriented x3, Cooperative, No apparent distress HEENT: Atraumatic, TM's Clear Lungs: Clear to auscultation, Normal air movement Cardiovascular: Regular rate, Regular Rhythm Psych/Mental Status: Normal Affect, Appropriate, Alert and oriented to time, place, person, mood and affect Assessment/Plan Active Problems (Last Updated 01/09/20 @ 13:[address] 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 grade 3 treated medically Delayed wound healing (Chronic) Malnutrition (Chronic) Type 2 diabetes mellitus with diabetic polyneuropathy (Chronic) The patient tolerated hyperbaric oxygen therapy well without any issues or concerns and will continue according to his medical plan.
[2020-01-15 12:05] LABS: Bedside Glucose 190 mg/dL (70-110)
[2020-01-15 12:53] VITALS: BP 118/54; BP 134/77; PULSE 69; PULSE 72; RESP 18; TEMP 36.3
== END 2020-01-15 23:59 ==
LOC: WC 09:30
PROVIDERS: Family Provider Student in an Organized Health Care Education/Training Program; PCP Student in an Organized Health Care Education/Training Program; Referring Provider Podiatrist; Visit Provider Podiatrist
DX: E11.621 Type 2 diabetes mellitus with foot ulcer (principal); L97.522 Non-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ulcer of other part of left foot with fat layer exposed; E11.42 Type 2 diabetes mellitus with diabetic polyneuropathy; I73.00 Raynaud's syndrome without gangrene; F17.220 Nicotine dependence, chewing tobacco, uncomplicated; M20.42 Other hammer toe(s) (acquired), left foot; E11.51 Type 2 diabetes mellitus with diabetic peripheral angiopathy without gangrene; I25.10 Atherosclerotic heart disease of native coronary artery without angina pectoris; I10 Essential (primary) hypertension; L85.3 Xerosis cutis; Z79.899 Other long term (current) drug therapy; Z79.4 Long term (current) use of insulin; Z79.82 Long term (current) use of aspirin
CPT/HCPCS: 11042; 15275; 29445; 82962; 87070; 87075; 87077; 87186; 87205; 99183; Q4186; G0277

== ENCOUNTER → 2020-01-28 13:24 | Outpatient (CLI) | payer MEDICAID, SELFPAY ==
[2020-01-28 09:40] VITALS: BMI 28.7
--- NOTE | 2020-01-28 13:34 | RAD_ITS ---
STUDY: X-RAY - RIGHT HAND, ATTENTION THIRD FINGER REASON FOR EXAM: Male, 59 years old. NON HEALING ULCER SINCE SEP 23 2019 TECHNIQUE: 3 view(s) of the finger were obtained. COMPARISON: None. FINDINGS: Normal metacarpal head. Normal metacarpophalangeal joint. Normal proximal phalanx. Normal middle phalanx. Normal distal phalanx. Normal proximal interphalangeal joint. Normal distal interphalangeal joint. Soft tissue swelling overlying the middle and distal interphalangeal joints. 3. Tiny bony densities along the dorsal aspect overlying the distal interphalangeal joint of the third digit. The largest measures 1.6 mm. Vascular calcification. RAD/Finger(s) Min 2 Views IMPRESSION: Soft tissue swelling. Vascular calcification. 3 tiny bony densities overlying the distal interphalangeal joint of the third digit along the dorsal aspect. Electronically Signed: Chapo Viramontes, at 15:12 EDT , Service support ,
== END ==
PROVIDERS: PCP Student in an Organized Health Care Education/Training Program; Referring Provider Nurse Practitioner Family; Visit Provider Nurse Practitioner Family
DX: L98.499 Non-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ulcer of skin of other sites with unspecified severity (principal)
CPT/HCPCS: 11042; 73140

== ENCOUNTER 2020-02-14 10:15 | Outpatient (RCR) | payer MEDICAID, SELFPAY ==
[2020-01-16 00:38] VITALS: BP 134/77; PULSE 72; RESP 18; TEMP 36.3
[2020-01-16 08:51] LABS: Bedside Glucose 154 mg/dL (70-110)
[2020-01-16 09:39] VITALS: BP 107/55; BP 99/66; PULSE 69; PULSE 94; RESP 16; RESP 18; TEMP 36.3
[2020-01-16 11:01] LABS: Bedside Glucose 112 mg/dL (70-110)
[2020-01-16 11:45] VITALS: BP 107/55; PULSE 69; RESP 18; TEMP 36.3; BMI 28.7
--- NOTE | 2020-01-16 11:54 | PCM.HBO.PN ---
History of Present Illness Date of Service: 01/16/20 Presenting Chief Complaint: Rousseau grade 3 diabetic foot ulcer, left plantar foot RICK GEORGE Jr. is a 59 year old currently undergoing hyperbaric oxygen therapy for Rousseau 3 plantar DFU Progress: Today represents 17 day for hyperbaric oxygen treatment of the 40 treatments that are ordered. Tolerance of hyperbaric oxygen therapy: Hyperbaric oxygen therapy treatment was provided as per facility protocols at 2.0 VINNY, 100% oxygen for 90 minutes. Patient tolerating treatments well without complaints blood sugars have been monitored. Past Medical History Chronic Problems (Last Updated 01/09/20 @ 13:[address] 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 Zhu of [facility] Essential (primary) hypertension (Chronic) Other specified peripheral vascular diseases (Chronic) Skin ulcer of finger with fat layer exposed (Chronic) necrotic ulcer dorsum right long finger at DIP joint 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) Allergies/Adverse Reactions: Allergies atorvastatin Adverse Reaction (Verified 08/23/19 12:36) Unknown metformin Adverse Reaction (Verified 08/23/19 12:36) Diarrhea Home Medications: Ambulatory Orders Medication Instructions Recorded Ammonium Lactate [Amlactin] 57 gm TP PRN PRN 10/04/17 Celecoxib [Celebrex] 200 mg PO DAILY 10/04/17 Cholecalciferol (Vitamin D3) 5,000 unit PO DAILY 10/04/17 [Vitamin D3] Levomefolate/B6/B12/Algal Oil 1 ea PO DAILY 10/04/17 [Metanx Capsule] Nortriptyline HCl 50 mg PO QHS 10/04/17 Biotin 1 mg PO DAILY 04/01/18 Desonide 0.05% [Desowen 0.05% 1 applic TOPICAL BID 04/01/18 Cream] Diflorasone Diacetate [Psorcon] 1 applicatio TP BID PRN 04/01/18 Insulin Glargine,Hum.rec.anlog 20 unit SQ QHS 04/01/18 [Basaglar Kwikpen U-100] Insulin Lispro [Humalog KwikPen] See Protocol SQ TIDCM 04/01/18 Ketoconazole [Nizoral] 1 applic TOPICAL DAILY PRN 04/01/18 Magnesium 250 mg PO DAILY 04/01/18 metoprolol tartrate 25 mg tablet 12.5 mg PO BID tab MDD 1.5 tabs 07/19/18 lisinopril 5 mg tablet 5 mg PO QDAY #30 tab 03/19/19 albuterol sulfate 90 mcg/actuation 2 puff INHALATION Q4H PRN g 08/13/19 aerosol inhaler amlodipine 10 mg tablet 10 mg PO DAILY 08/13/19 becaplermin 0.01 % topical gel 1 applic TOPICAL DAILY 08/13/19 cetirizine 10 mg tablet 10 mg PO DAILY 08/13/19 gabapentin 300 mg capsule 900 mg PO TID cap 08/13/19 nifedipine 30 mg tablet,extended 30 mg PO DAILY 08/13/19 release simvastatin 10 mg tablet 10 mg PO QHS 08/13/19 vardenafil 20 mg tablet 20 mg PO DAILY PRN 08/13/19 Cyanocobalamin [Vitamin B12] 1,000 mcg IM Q30D 08/22/19 aspirin 81 mg tablet,delayed 162 mg PO DAILY tab MDD . 10/12/19 release baclofen 20 mg tablet 30 mg PO TID tab 10/12/19 cephalexin 500 mg capsule 500 mg PO Q6H cap 10/12/19 famotidine 20 mg tablet 20 mg PO DAILY PRN 10/12/19 furosemide 20 mg tablet 20 mg PO BID PRN tab 10/12/19 Maternal Family History: Family History (Last Reviewed 10/18/19 @ 11:24 by Linda Leon) Other Arthritis Hypertension Family History: Diabetes Paternal Family History: Family History (Last Reviewed 10/18/19 @ 11:24 by Linda Leon) Other Arthritis Hypertension Family History: Diabetes Smoking Status: Current every day smoker Physical Exam Vital Signs Temp Pulse Resp BP 97.3 F L 69 18 107/55 L 01/16/20 11:45 01/16/20 11:45 01/16/20 11:45 01/16/20 11:45 Assessment/Plan Patient has tolerated treatments well and will proceed as ordered for HBO
--- NOTE | 2020-01-16 23:04 | PN.PCM_ITS ---
(1) Chronic ulcer of left foot with necrosis of muscle Status: Chronic Current Visit: Yes Code(s): L97.523 - Non-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ulcer of other part of left foot with necrosis of muscle Comment: capsular layer is in the wound bed. grade 3 treated medically (2) Delayed wound healing Status: Chronic Current Visit: Yes Code(s): T14.8XXD - Other injury of unspecified body region, subsequent encounter (3) Malnutrition Status: Chronic Current Visit: Yes Code(s): E46 - Unspecified protein- calorie malnutrition (4) Peripheral vascular disease Status: Chronic Current Visit: Yes Code(s): I73.9 - Peripheral vascular disease, unspecified (5) Type 2 diabetes mellitus with diabetic polyneuropathy Status: Chronic Current Visit: Yes Code(s): E11.42 - Type 2 diabetes mellitus with diabetic polyneuropathy Type of Wound Date of Service: 01/16/20 Chief Complaint: Rousseau grade 3 diabetic foot ulcer, left plantar foot History of Wound: Mr. Espinoza is a 59-year-old with past medical history as stated above who is well-known to the wound center. He is able to offload better at this time. He also recently saw vascular surgery who did not recommend additional intervention at this time. He also had an MRI to rule out osteomyelitis due to the recent increase in ulcer depth which was negative. he denies fever, chill, nausea, vomiting, loss of appetite or pain to the foot. He completed a course of antibiotics as advised for treatment of his grade 3 ulcer. He has proceeded with hyperbaric oxygen therapy and this is going well. He defers surgical resection of the fourth metatarsal head at this time because he admits to not be able to keep pressure off of it and there are coronavirus surgical room availability conflicts. He also has lower extremity edema. Progress of Wound: Improving - Physical Exam Vital Signs Temp Pulse Resp BP 97.3 F L 69 18 107/55 L 01/16/20 11:45 01/16/20 11:45 01/16/20 11:45 01/16/20 11:45 General: Alert, Oriented x3, Cooperative, No apparent distress HEENT: Atraumatic Extremities: No cyanosis, Capillary Refill Less than 3 Seconds, No Calf Tenderness, Diminished Peripheral Pulses, Edema Skin: Ulcer/ Wound - No purulence, erythema, streaking, odor, infection. The ulcer has reduced depth and some new peripheral epithelialization. The granular base appears very healthy. The adjacent skin is hairless and atrophic Wound Measurements and Assessment WC - Nurse 1 - General Ulcer Measurement Start: 01/16/20 09:39 Freq: Status: Active Protocol: Activity Type Activity Date Activity User E-Sign Co-Sign Detail Recorded Client Recorded Date Recorded By Document 01/16/20 11:45 RB [id number] 01/16/20 11:48 RB 01/16/20 11:45 Wound Center Nurse 1 [Ulcer Assessment] #13 R 2nd finger -Combined with other wound No 11. L plantar -Combined with other wound No -Current Size (cm) - Length 1.5 -Current Size (cm) - Width 1.6 -Current Size (cm) - Depth 0.1 -Total Square Cm 2.40 -Tunneling No -Undermining/Tunneling No -Circular Undermining No -Exudate Amt Small -Exudate Type Serosanguineous -Wound Margin Thickened -Granulation Amt Medium (34-66%) -Granulation Quality [place] -Slough/Fibrin Yes -Necrosis Amt Small (1-33%) -Necrotic Tissue Type Adherent Slough -Structure Exposed N/A -Texture ([place]-wound Skin Appearance) Callus -Moisture ([place]-wound Skin Appearance Maceration ) -Color ([place]-wound Skin Appearance) Assessed -Temperature ([place]-wound Skin No Abnormality Appearance) (Pt Warm) -Tenderness on Palpation ([place]-wound No Skin Appearance) -Ulcer Cleansing Wound Cleanser -Foul Odor after Cleansing No -Anesthetic Used 4% Lidocaine Solution [Edema Assessment] -Lower Limb Edema Present Yes -Left Calf (cm) 35.5 -Left Ankle (cm) 21.5 - Nurse 2 - General Ulcer CM Notes Start: 01/16/20 09:39 Freq: Status: Active Protocol: Activity Type Activity Date Activity User E-Sign Co-Sign Detail Recorded Client Recorded Date Recorded By Document 01/16/20 13:31 MARJORIE [id number] 01/16/20 13:32 MARJORIE 01/16/20 13:31 Wound Center Nurse 2 [Procedure/Treatment] 11. L plantar -Time 13:31 -Correct Patient Yes -Correct Side, Site, Position Yes -Correct Procedure Yes -Procedure Performed Yes -Type of Procedure Debridement -Clinical Debridement Subcutaneous -Post Debridement Size (cm) - Length 1.6 -Post Debridement Size (cm) - Width 1.6 -Post Debridement Size (cm) - Depth 0.1 -Total Square Cm 2.56 -Wound/Ulcer Outcome Not Healed -Ulcer Cleansing Rinsed/ Irrigated with Saline -Foul Odor after Cleansing No -Bioengineered Tissue Yes -Type of bioengineered Tissue EPIFIX -Expiration Date 09/16/24 -Product Lot Number [id number] -Percent Used 100 -Saline Lot Number [id number] -Bleeding Controlled with Pressure -Offloading Yes -Type of Offloading Total Contact Cast (TCC) -Treatment Response Procedure Tolerated Well [See Physician Procedure note for Specifics] Pain Scale: 0-10 Numeric [Pain] -Is Patient Pain Free? Yes Musculoskeletal: No Tenderness to Palpation of Joints or Extremities, Muscle Wasting Neurological: - - Lack of epicritic sensation light touch is consistent with neuropathy status Psych/Mental Status: Normal Affect, Appropriate Debridement Note Post-Debridement Measurements/Treatment WC - Nurse 2 - General Ulcer CM Notes Start: 01/16/20 09:39 Freq: Status: Active Protocol: Activity Type Activity Date Activity User E-Sign Co-Sign Detail Recorded Client Recorded Date Recorded By Document 01/16/20 13:31 MARJORIE [id number] 01/16/20 13:32 MARJORIE 01/16/20 13:31 Wound Center Nurse 2 11. L plantar -Time 13:31 -Correct Patient Yes -Correct Side, Site, Position Yes -Correct Procedure Yes -Procedure Performed Yes -Type of Procedure Debridement -Clinical Debridement Subcutaneous -Post Debridement Size (cm) - Length 1.6 -Post Debridement Size (cm) - Width 1.6 -Post Debridement Size (cm) - Depth 0.1 -Total Square Cm 2.56 -Wound/Ulcer Outcome Not Healed -Ulcer Cleansing Rinsed/ Irrigated with Saline -Foul Odor after Cleansing No -Bioengineered Tissue Yes -Type of bioengineered Tissue EPIFIX -Expiration Date 09/16/24 -Product Lot Number [id number] -Percent Used 100 -Saline Lot Number [id number] -Bleeding Controlled with Pressure -Offloading Yes -Type of Offloading Total Contact Cast (TCC) -Treatment Response Procedure Tolerated Well Pain Scale: 0-10 Numeric Is Patient Pain Free? Yes Wound debrided: plantar lateral foot Laterality: Left Wound Grade/Stage: grade 3 Type of Debridement: Excisional debridement Anesthesia Used: 5% Lidocaine Gel Depth: in the subcutaneous layer Percentage of wound debrided: 100 Instrument Used: #15 blade Tissue Removed: fibrous, devitalized subcutaneous, biofilm, slough Severity: Fat Layer Exposed Amount of bleeding with debridement: Mild Bleeding Controlled with: Pressure Patient tolerated procedure well Assessment/Plan Active Problems (Last Updated 01/09/20 @ 13:[address] 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 grade 3 treated medically Delayed wound healing (Chronic) Malnutrition (Chronic) Peripheral vascular disease (Chronic) Type 2 diabetes mellitus with diabetic polyneuropathy (Chronic) Assessment: Left foot ulcer with capsule/muscle tissue exposed, Rousseau grade 3 treated for infection/bacterial colonization. Left foot deformities including tailor bunion and hammertoe. Peripheral vascular disease. Diabetes with polyneuropathy. Malnutrition. Delayed healing. Raynaud's disease Plan: I reviewed and discussed his case today. Subcutaneous excisional debridement was performed as noted in the clinical panel to left foot. He has completed oral antibiotics including Augmentin and ciprofloxacin based off of his prior culture results and appears to be doing better. It is noted he is also being treated for a necrotic finger ulcer with Dr. Bishop. He is continuing on an oral antibiotic for this as well at this time. I recommend application of advanced wound healing product this week, epi-fix. This was applied according to standard protocol 100% of the product was performed on the left foot. This is medically necessary for limb salvage. He understands the indications, planned application, anticipated healing time and management. He tolerated this well. He was advised to keep his dressing clean, dry, and intact until follow-up next week. To continue proper glycemic control nutritional supplementation optimize healing. Is noted his last hemoglobin A1c we have on file here is 5.9%. This is a chronic ulceration has been present for approximately 10 months. I recommend application of advanced wound healing product. He was advised to follow-up with his vascular surgeon, Dr. Pena as scheduled. He had recent updated vascular studies performed and Dr. Pena is considering additional intervention. I recommend proceeding if there are options available. Due to the increased depth he did also go through a recent osteomyelitis work-up. Osteomyelitis signs were not apparent on the MRI and this will be monitored very closely. Compliance was discussed. He was reassured there are no local signs of infection on the foot today. I answered his questions. He had prior capsule muscle tissue exposed and that further was infected per his culture results which would qualify and is awaiting grade 3. Hyperbaric oxygen therapy is an option for him and he was advised to continue. He has been doing well. Additionally, a well-padded total contact cast was applied with the lower extremity in a rectus position. Verbal consent was obtained and he tolerated this well. He was advised the this clean, dry, and intact until follow-up next week. He denies being claustrophobic. We also discussed surgical intervention such as fourth metatarsal head resection. He defers today. I encouraged him to continue to think about this. Nonemergent surgical procedure are pending at this time to coronavirus pandemic and he und erstands he will need to wait until this restriction has been lifted to proceed forward. He relates he also would not be able to stay off of it to allow healing. 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 Advised on moving forward with surgical intervention if he is able to allow healing in the postoperative setting. Improved offloading was discussed also he is amendable to proceed with a total contact cast. Verbal consent was obtained and this was applied according standard protocol in a neutral position and also well-padded. He tolerated this well. She was advised to keep this clean, dry, and intact until follow-up next week. Other options include going on a complex palliative type of the plan. He would like more time to think about this. To return to the wound healing center in 1 week or call sooner if he has any questions or concerns.
[2020-01-17 10:11] LABS: Bedside Glucose 181 mg/dL (70-110)
[2020-01-17 10:38] VITALS: BP 109/77; BP 137/88; PULSE 69; PULSE 82; RESP 16; RESP 20; TEMP 35.8
[2020-01-17 12:21] LABS: Bedside Glucose 112 mg/dL (70-110)
--- NOTE | 2020-01-17 13:03 | PCM.HBO.PN ---
History of Present Illness Date of Service: 01/17/20 Presenting Chief Complaint: Rousseau grade 3 diabetic foot ulcer, left plantar foot RICK GEORGE Jr. is a 59 year old currently undergoing hyperbaric oxygen therapy for Rousseau 3 plantar DFU Progress: Today represents 18th day for hyperbaric oxygen treatment of the 40 treatments. Tolerance of hyperbaric oxygen therapy: Hyperbaric oxygen therapy treatment was provided as per facility protocols at 2.0 VINNY, 100% oxygen for 90 minutes. Patient tolerated treatments well without complaints. Blood sugars have been monitored. Past Medical History Chronic Problems (Last Updated 01/09/20 @ 13:[address] 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) Allergies/Adverse Reactions: Allergies atorvastatin Adverse Reaction (Verified 08/23/19 12:36) Unknown metformin Adverse Reaction (Verified 08/23/19 12:36) Diarrhea Home Medications: Ambulatory Orders Medication Instructions Recorded Ammonium Lactate [Amlactin] 57 gm TP PRN PRN 10/04/17 Celecoxib [Celebrex] 200 mg PO DAILY 10/04/17 Cholecalciferol (Vitamin D3) 5,000 unit PO DAILY 10/04/17 [Vitamin D3] Levomefolate/B6/B12/Algal Oil 1 ea PO DAILY 10/04/17 [Metanx Capsule] Nortriptyline HCl 50 mg PO QHS 10/04/17 Biotin 1 mg PO DAILY 04/01/18 Desonide 0.05% [Desowen 0.05% 1 applic TOPICAL BID 04/01/18 Cream] Diflorasone Diacetate [Psorcon] 1 applicatio TP BID PRN 04/01/18 Insulin Glargine,Hum.rec.anlog 20 unit SQ QHS 04/01/18 [Basaglar Kwikpen U-100] Insulin Lispro [Humalog KwikPen] See Protocol SQ TIDCM 04/01/18 Ketoconazole [Nizoral] 1 applic TOPICAL DAILY PRN 04/01/18 Magnesium 250 mg PO DAILY 04/01/18 metoprolol tartrate 25 mg tablet 12.5 mg PO BID tab MDD 1.5 tabs 07/19/18 lisinopril 5 mg tablet 5 mg PO QDAY #30 tab 03/19/19 albuterol sulfate 90 mcg/actuation 2 puff INHALATION Q4H PRN g 08/13/19 aerosol inhaler amlodipine 10 mg tablet 10 mg PO DAILY 08/13/19 becaplermin 0.01 % topical gel 1 applic TOPICAL DAILY 08/13/19 cetirizine 10 mg tablet 10 mg PO DAILY 08/13/19 gabapentin 300 mg capsule 900 mg PO TID cap 08/13/19 nifedipine 30 mg tablet,extended 30 mg PO DAILY 08/13/19 release simvastatin 10 mg tablet 10 mg PO QHS 08/13/19 vardenafil 20 mg tablet 20 mg PO DAILY PRN 08/13/19 Cyanocobalamin [Vitamin B12] 1,000 mcg IM Q30D 08/22/19 aspirin 81 mg tablet,delayed 162 mg PO DAILY tab MDD . 10/12/19 release baclofen 20 mg tablet 30 mg PO TID tab 10/12/19 cephalexin 500 mg capsule 500 mg PO Q6H cap 10/12/19 famotidine 20 mg tablet 20 mg PO DAILY PRN 10/12/19 furosemide 20 mg tablet 20 mg PO BID PRN tab 10/12/19 Maternal Family History: Family History (Last Reviewed 10/18/19 @ 11:24 by Linda Leon) Other Arthritis Hypertension Family History: Diabetes Paternal Family History: Family History (Last Reviewed 10/18/19 @ 11:24 by Linda Leon) Other Arthritis Hypertension Family History: Diabetes Smoking Status: Current every day smoker Physical Exam Vital Signs Temp Pulse Resp BP 96.5 F L 82 20 H 137/88 H 01/17/20 10:38 01/17/20 10:38 01/17/20 10:38 01/17/20 10:38 General: Alert, Oriented x3, Cooperative, No apparent distress HEENT: Atraumatic, Normocephalic Lungs: Normal air movement Psych/Mental Status: Normal Affect Assessment/Plan Active Problems (Last Updated 01/09/20 @ 13:[address] 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 grade 3 treated medically Delayed wound healing (Chronic) Malnutrition (Chronic) Peripheral vascular disease (Chronic) Type 2 diabetes mellitus with diabetic polyneuropathy (Chronic) He reports right ear pain which has been ongoing for 1 week. Clear fluid drainage noted on the right and minimal bloody drainage noted on the left. Strongly advised to follow-up with his primary care physician for management of possible right otitis media. He has continued to tolerate hyperbaric oxygen therapy which will be continued as per patient's medical plan. HBO Supervision
--- NOTE | 2020-01-18 10:45 | WC ---
Received a call from patient at 0845 c/o right ear pain and increased amount of drainage. He was concerned to complete his HBO treatment today due to pain and drainage. Spoke with Kindra Devine LPN [facility] Tech. Advised to call Dr. Leon office to see if he can be seen today. Patient stated he left Dr. Leon a message to return call. Stated he also called PCP at [facility] and left message. Dr. Vance and Khushi Lynn [employer] MACHINE OPERATOR notified of patient complaint and his call in to Dr. Leon. After speaking with patient, received a call at [address] Leon office. She stated they are working from home today and that she would call patient for c/o symptoms and she would report to Dr. Leon for advise and treatemnt. Patient next HBO treatment is scheduled for Tuesday01/21/20 and will depend on right ear pain and drainage.
[2020-01-23 12:00] VITALS: BMI 28.7
--- NOTE | 2020-01-23 13:40 | PN.PCM_ITS ---
(1) Chronic ulcer of left foot with necrosis of muscle Status: Chronic Current Visit: Yes Code(s): L97.523 - Non-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ulcer of other part of left foot with necrosis of muscle Comment: capsular layer is in the wound bed. grade 3 treated medically (2) Delayed wound healing Status: Chronic Current Visit: Yes Code(s): T14.8XXD - Other injury of unspecified body region, subsequent encounter (3) Malnutrition Status: Chronic Current Visit: Yes Code(s): E46 - Unspecified protein- calorie malnutrition (4) Peripheral vascular disease Status: Chronic Current Visit: Yes Code(s): I73.9 - Peripheral vascular disease, unspecified (5) Type 2 diabetes mellitus with diabetic polyneuropathy Status: Chronic Current Visit: Yes Code(s): E11.42 - Type 2 diabetes mellitus with diabetic polyneuropathy Type of Wound Date of Service: 01/23/20 Chief Complaint: Left foot ulcer History of Wound: Mr. Espinoza is a 59-year-old with past medical history as stated above who is well-known to the wound center. He is able to offload better at this time. He also recently saw vascular surgery who did not recommend additional intervention at this time. He also had an MRI to rule out osteomyelitis due to the recent increase in ulcer depth which was negative. he denies fever, chill, nausea, vomiting, loss of appetite or pain to the foot. He completed a course of antibiotics as advised for treatment of his grade 3 ulcer. He has proceeded with hyperbaric oxygen therapy and this is going well. He defers surgical resection of the fourth metatarsal head at this time because he admits to not be able to keep pressure off of it and there are coronavirus surgical room availability conflicts. He also has lower extremity edema. He had a total contact cast applied last week and tightens the strap as high as he can and he relates he has an area of discolored skin. Progress of Wound: Improving - Physical Exam Vital Signs Temp Pulse Resp BP 96.5 F L 82 20 H 137/88 H 01/17/20 10:38 01/17/20 10:38 01/17/20 10:38 01/17/20 10:38 General: Alert, Oriented x3, Cooperative, No apparent distress Extremities: No cyanosis, No edema, Capillary Refill Less than 3 Seconds, No Calf Tenderness, Diminished Peripheral Pulses Skin: Ulcer/ Wound - No purulence, erythema, streaking, odor, infection. There is a skin discontinuity to the dorsal foot however there is a non-blanchable area with evidence of prior pressure medial aspect. No bogginess blister or fluctuation. The plantar also has significant peripheral epithelialization is very superficial with granulation tissue Wound Measurements and Assessment WC - Nurse 1 - General Ulcer Measurement Start: 01/16/20 09:39 Freq: Status: Active Protocol: Activity Type Activity Date Activity User E-Sign Co-Sign Detail Recorded Client Recorded Date Recorded By Document 01/23/20 12:00 DV [id number] 01/23/20 12:01 DV 01/23/20 12:00 Wound Center Nurse 1 [Ulcer Assessment] 11. L plantar -Combined with other wound No -Current Size (cm) - Length 1.5 -Current Size (cm) - Width 1.5 -Current Size (cm) - Depth 0.2 -Total Square Cm 2.25 -Date of Last Picture (Recall this 01/23/20 field) -Photo Taken Yes FLORIN - Nurse 2 - General Ulcer CM Notes Start: 01/16/20 09:39 Freq: Status: Active Protocol: Activity Type Activity Date Activity User E-Sign Co-Sign Detail Recorded Client Recorded Date Recorded By Document 01/23/20 12:07 MARJORIE [id number] 01/23/20 12:09 MARJORIE 01/23/20 12:07 Wound Center Nurse 2 [Procedure/Treatment] #13 R 2nd finger -Time 12:08 -Correct Patient No -Correct Side, Site, Position No -Correct Procedure No -Procedure Performed No -Wound/Ulcer Outcome Not Healed -Bleeding Controlled with Pressure 11. L plantar -Time 12:08 -Correct Patient Yes -Correct Side, Site, Position Yes -Correct Procedure Yes -Procedure Performed Yes -Type of Procedure Debridement -Clinical Debridement Subcutaneous -Post Debridement Size (cm) - Length 1.2 -Post Debridement Size (cm) - Width 1.3 -Post Debridement Size (cm) - Depth 0.2 -Total Square Cm 1.56 -Wound/Ulcer Outcome Not Healed -Ulcer Cleansing Rinsed/ Irrigated with Saline -Foul Odor after Cleansing No -Bioengineered Tissue No -Bleeding Controlled with Pressure -Offloading Yes -Type of Offloading Total Contact Cast (TCC) -Treatment Response Procedure Tolerated Well [See Physician Procedure note for Specifics] Pain Scale: 0-10 Numeric [Pain] -Is Patient Pain Free? Yes Musculoskeletal: No Tenderness to Palpation of Joints or Extremities, Muscle Wasting, - - Dorsal contracture lesser toes with prominent metatarsal heads Neurological: - - Lack of epicritic sensation light touch is consistent with neuropathy status Psych/Mental Status: Normal Affect, Appropriate Debridement Note Post-Debridement Measurements/Treatment WC - Nurse 2 - General Ulcer CM Notes Start: 01/16/20 09:39 Freq: Status: Active Protocol: Activity Type Activity Date Activity User E-Sign Co-Sign Detail Recorded Client Recorded Date Recorded By Document 01/16/20 13:31 [id number] 01/16/20 13:32 Document 01/23/20 12:07 [id number] 01/23/20 12:09 01/16/20 01/23/20 13:31 12:07 Wound Center Nurse 2 #13 R 2nd finger -Time 12:08 -Correct Patient No -Correct Side, Site, Position No -Correct Procedure No -Procedure Performed No -Wound/Ulcer Outcome Not Healed -Bleeding Controlled with Pressure 11. L plantar -Time 13:31 12:08 -Correct Patient Yes Yes -Correct Side, Site, Position Yes Yes -Correct Procedure Yes Yes -Procedure Performed Yes Yes -Type of Procedure Debridement Debridement -Clinical Debridement Subcutaneous Subcutaneous -Post Debridement Size (cm) - Length 1.6 1.2 -Post Debridement Size (cm) - Width 1.6 1.3 -Post Debridement Size (cm) - Depth 0.1 0.2 -Total Square Cm 2.56 1.56 -Wound/Ulcer Outcome Not Healed Not Healed -Ulcer Cleansing Rinsed/ Rinsed/ Irrigated with Irrigated with Saline Saline -Foul Odor after Cleansing No No -Bioengineered Tissue Yes No -Type of bioengineered Tissue EPIFIX -Expiration Date 09/16/24 -Product Lot Number [id number] -Percent Used 100 -Saline Lot Number [id number] -Bleeding Controlled with Pressure Pressure -Offloading Yes Yes -Type of Offloading Total Contact Total Contact Cast (TCC) Cast (TCC) -Treatment Response Procedure Procedure Tolerated Well Tolerated Well Pain Scale: 0-10 Numeric Is Patient Pain Free? Yes Yes Wound debrided: sub 4th metatarsal head Laterality: Left Wound Grade/Stage: grade 3 Type of Debridement: Excisional debridement Anesthesia Used: 5% Lidocaine Gel Depth: in the subcutaneous layer Percentage of wound debrided: 100 Instrument Used: #15 blade Tissue Removed: fibrous, devitalized subcutaneous, biofilm, slough Severity: Fat Layer Exposed Amount of bleeding with debridement: Mild Bleeding Controlled with: Pressure Patient tolerated procedure well Assessment/Plan Active Problems (Last Updated 01/09/20 @ 13:[address] 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 grade 3 treated medically Delayed wound healing (Chronic) Malnutrition (Chronic) Peripheral vascular disease (Chronic) Type 2 diabetes mellitus with diabetic polyneuropathy (Chronic) Assessment: Left foot ulcer with capsule/muscle tissue exposed, Rousseau grade 3 treated for infection/bacterial colonization. Left foot deformities including tailor bunion and hammertoe. Peripheral vascular disease. Diabetes with polyneuropathy. Malnutrition. Delayed healing. Raynaud's disease Plan: I reviewed and discussed his case today. Subcutaneous excisional debridement was performed as noted in the clinical panel to left foot. He has completed oral antibiotics including Augmentin and ciprofloxacin based off of his prior culture results and appears to be doing better. It is noted he is also being treated for a necrotic finger ulcer with Dr. Bishop. He is continuing on an oral antibiotic for this as well at this time. I will confirm if he is approved for additional application of advanced wound product, epi-fix. This is medically necessary for limb salvage. He understands the indications, planned application, anticipated healing time and management. Tegan was applied today.. To continue proper glycemic control nutritional supplementation optimize healing. Is noted his last hemoglobin A1c we have on file here is 5.9%. This is a chronic ulceration has been present for approximately 10 months. He was advised to follow-up with his vascular surgeon, Dr. Pena as scheduled. He had recent updated vascular studies performed and Dr. Pena is considering additional intervention. I recommend proceeding if there are options available. Due to the increased depth he did also go through a recent osteomyelitis work-up. Osteomyelitis signs were not apparent on the MRI and this will be monitored very closely. Compliance was discussed. He was reassured there are no local signs of infection on the foot today. I answered his questions. He had prior capsule muscle tissue exposed and that further was infected per his culture results which would qualify and is awaiting grade 3. Hyperbaric oxygen therapy is an option for him and he was advised to continue. He has been doing well. Additionally, a well-padded total contact cast was applied with the lower extremity in a rectus position. Verbal consent was obtained and he tolerated this well. He was advised the this clean, dry, and intact until follow-up next week. He denies being claustrophobic. We also discussed surgical intervention such as fourth metatarsal head resection. He defers today. I encouraged him to continue to think about this. Nonemergent surgical procedure are pending at this time to coronavirus pandemic and he understands he will need to wait until this restriction has been lifted to proceed forward. He relates he also would not be able to stay off of it to allow healing. 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 Advised on moving forward with surgical intervention if he is able to allow healing in the postoperative setting. Improved offloading was discussed also he is amendable to proceed with a total contact cast. Verbal consent was obtained and this was applied according standard protocol in a neutral position and also well-padded. He tolerated this well. She was advised to keep this clean, dry, and intact until follow-up next week. Other options include going on a complex palliative type of the plan. He would like more time to think about this. To avoid tightening the strap aggressively; he demonstrates understanding. To return to the wound healing center in 1 week or call sooner if he has any questions or concerns.
[2020-01-28 09:40] VITALS: BP 129/79; PULSE 76; RESP 18; TEMP 35.8; BMI 28.7
--- NOTE | 2020-01-28 11:58 | PCM.WC.PN ---
(1) Skin ulcer of finger with fat layer exposed Status: Chronic Current Visit: Yes Code(s): L98.492 - Non-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ulcer of skin of other sites with fat layer exposed Comment: necrotic ulcer dorsum right long finger at DIP joint (2) Raynaud disease Status: Chronic Current Visit: Yes Code(s): I73.00 - Raynaud's syndrome without gangrene (3) History of frostbite Status: Chronic Current Visit: Yes Code(s): Z91.89 - Other specified personal risk factors, not elsewhere classified Comment: left long finger, right index finger, right long finger, and right ring finger (4) Tobacco abuse Status: Chronic Current Visit: Yes Code(s): Z72.0 - Tobacco use (5) Type 2 diabetes mellitus with diabetic polyneuropathy Status: Chronic Current Visit: Yes Code(s): E11.42 - Type 2 diabetes mellitus with diabetic polyneuropathy Type of Wound Date of Service: 01/28/20 Chief Complaint: Recent frostbite right long finger with nonhealing necrotic ulcer. History of Wound: 59-year-old man with a history of diabetes who is presently being seen for a left diabetic foot ulcer has some skin necrosis on the dorsum right long finger at the DIP joint. He sustained frostbite back on October 03, 2019 involving his left long finger, right index finger, right long finger, and right ring finger. He was seen at [facility]. After careful observation to look for areas of demarcation, all the fingers survived with the exception of some skin necrosis on the right long finger. He became concerned recently because of increased pain and drainage from the eschar. Patient is right hand dominant. A wound culture from 01/07/20 was positive for Staphylococcus aureas. He has been placed on Doxycycline for this. Wound care to right long finger is moistened Tegan covered by gauze and using coband to hold in place. Today denies any fevers. Patient states he has a good appetite. Progress of Wound: Stable. - Physical Exam Vital Signs Temp Pulse Resp BP 96.4 F L 76 18 129/79 H 01/28/20 09:40 01/28/20 09:40 01/28/20 09:40 01/28/20 09:40 General: Alert, Oriented x3, Cooperative HEENT: Atraumatic Oral: Moist Mucosa Lungs: Normal air movement Cardiovascular: Regular rate Extremities: Capillary Refill Less than 3 Seconds Skin: Ulcer/ Wound - Right long finger dorsal aspect over the DIP joint. Ulcer is clean with some dryness around the edges. Wound Measurements and Assessment WC - Nurse 1 - General Ulcer Measurement Start: 01/16/20 09:39 Freq: Status: Active Protocol: Activity Type Activity Date Activity User E-Sign Co-Sign Detail Recorded Client Recorded Date Recorded By Document 01/28/20 09:40 [id number] 01/28/20 09:41 01/28/20 09:40 Wound Center Nurse 1 [Ulcer Assessment] #13 R 2nd finger -Combined with other wound No -Current Size (cm) - Length 0.5 -Current Size (cm) - Width 1.4 -Current Size (cm) - Depth 0.2 -Total Square Cm 0.70 -Photo Taken No -Epithelialization Small 1-33% -Tunneling No -Undermining/Tunneling No -Circular Undermining No -Exudate Amt Small -Exudate Type Serosanguineous -Wound Margin Flat & Intact -Granulation Amt Small (1-33%) -Granulation Quality [place] -Slough/Fibrin Yes -Necrosis Amt Medium (34-66%) -Necrotic Tissue Type Adherent Slough -Structure Exposed N/A -Texture ([place]le-wound Skin Appearance) Assessed -Moisture ([place]le-wound Skin Appearance Assessed,Dry/ ) Scaly -Color ([place]le-wound Skin Appearance) Assessed -Temperature ([place]-wound Skin No Abnormality Appearance) (Pt Warm) -Tenderness on Palpation ([place]le-wound No Skin Appearance) -Ulcer Cleansing Rinsed/ Irrigated with Saline -Foul Odor after Cleansing No -Anesthetic Used 4% Lidocaine Solution [Edema Assessment] -Lower Limb Edema Present NA - Nurse 2 - General Ulcer CM Notes Start: 01/16/20 09:39 Freq: Status: Active Protocol: Activity Type Activity Date Activity User E-Sign Co-Sign Detail Recorded Client Recorded Date Recorded By Document 01/28/20 09:52 [id number] 01/28/20 10:00 01/28/20 09:52 Wound Center Nurse 2 [Procedure/Treatment] #13 R 2nd finger -Time 09:53 -Correct Patient Yes -Correct Side, Site, Position Yes -Correct Procedure Yes -Procedure Performed Yes -Type of Procedure Debridement -Clinical Debridement Subcutaneous -Post Debridement Size (cm) - Length 0.6 -Post Debridement Size (cm) - Width 2.8 -Post Debridement Size (cm) - Depth 0.2 -Total Square Cm 1.68 -Wound/Ulcer Outcome Not Healed -Ulcer Cleansing Rinsed/ Irrigated with Saline -Foul Odor after Cleansing No -Bioengineered Tissue No -Bleeding Controlled with Pressure -Offloading No -Treatment Response Procedure Tolerated Well [See Physician Procedure note for Specifics] Pain Scale: 0-10 Numeric [Pain] -Is Patient Pain Free? Yes Musculoskeletal: No Tenderness to Palpation of Joints or Extremities Neurological: Neuro grossly intact Psych/Mental Status: Normal Affect, Appropriate Debridement Note Post-Debridement Measurements/Treatment WC - Nurse 2 - General Ulcer CM Notes Start: 01/16/20 09:39 Freq: Status: Active Protocol: Activity Type Activity Date Activity User E-Sign Co-Sign Detail Recorded Client Recorded Date Recorded By Document 01/16/20 13:31 [id number] 01/16/20 13:32 Document 01/23/20 12:07 [id number] 01/23/20 12:09 Document 01/28/20 09:52 [id number] 01/28/20 10:00 01/16/20 01/23/20 01/28/20 13:31 12:07 09:52 Wound Center Nurse 2 #13 R 2nd finger -Time 12:08 09:53 -Correct Patient No Yes -Correct Side, Site, Position No Yes -Correct Procedure No Yes -Procedure Performed No Yes -Type of Procedure Debridement -Clinical Debridement Subcutaneous -Post Debridement Size (cm) - Length 0.6 -Post Debridement Size (cm) - Width 2.8 -Post Debridement Size (cm) - Depth 0.2 -Total Square Cm 1.68 -Wound/Ulcer Outcome Not Healed Not Healed -Ulcer Cleansing Rinsed/ Irrigated with Saline -Foul Odor after Cleansing No -Bioengineered Tissue No -Bleeding Controlled with Pressure Pressure -Offloading No -Treatment Response Procedure Tolerated Well 11. L plantar -Time 13:31 12:08 -Correct Patient Yes Yes -Correct Side, Site, Position Yes Yes -Correct Procedure Yes Yes -Procedure Performed Yes Yes -Type of Procedure Debridement Debridement -Clinical Debridement Subcutaneous Subcutaneous -Post Debridement Size (cm) - Length 1.6 1.2 -Post Debridement Size (cm) - Width 1.6 1.3 -Post Debridement Size (cm) - Depth 0.1 0.2 -Total Square Cm 2.56 1.56 -Wound/Ulcer Outcome Not Healed Not Healed -Ulcer Cleansing Rinsed/ Rinsed/ Irrigated with Irrigated with Saline Saline -Foul Odor after Cleansing No No -Bioengineered Tissue Yes No -Type of bioengineered Tissue EPIFIX -Expiration Date 09/16/24 -Product Lot Number [id number] -Percent Used 100 -Saline Lot Number [id number] -Bleeding Controlled with Pressure Pressure -Offloading Yes Yes -Type of Offloading Total Contact Total Contact Cast (TCC) Cast (TCC) -Treatment Response Procedure Procedure Tolerated Well Tolerated Well Pain Scale: 0-10 Numeric Is Patient Pain Free? Yes Yes Yes Wound debrided: Long finger dorsal ulcer at DIP joint Laterality: Right Type of Debridement: Excisional debridement Anesthesia Used: 4% Lidocaine Solution Depth: Down to and including healthy tissue, in the subcutaneous layer Percentage of wound debrided: 100 Instrument Used: 3mm curette Tissue Removed: Subcutaneous tissue and slough Severity: Limited To Skin Breakdown Amount of bleeding with debridement: Mild Bleeding Controlled with: Pressure Patient tolerated procedure well Assessment/Plan Active Problems (Last Updated 01/09/20 @ 13:[address] 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 grade 3 treated medically Delayed wound healing (Chronic) Malnutrition (Chronic) Peripheral vascular disease (Chronic) Type 2 diabetes mellitus with diabetic polyneuropathy (Chronic) Skin ulcer of finger with fat layer exposed (Chronic) necrotic ulcer dorsum right long finger at DIP joint Assessment: 1. Nonhealing necrotic ulcer dorsum right long finger at DIP joint. 2. Diabetes mellitus. 3. History of recent frostbite. 4. Raynaud's disease. 5. Peripheral vascular disease. 6. Smoker. Plan: A subcutaneous debridement was performed today as previously documented. Patient tolerated it well. He continues to have some issues with his ears with drainage and now he is experiencing ringing in his ears. He has not had HBOT for a week because of his ear issues. He has an appointment today with Dr. Leon (ENT) for further evaluation. Wound Care- Moistened Tegan dressing, covered by gauze and secured with coban, to the right long finger wound daily. Encourage range of motion exercises to minimize stiffness. A wound culture from 01/07/20 was positive for Staphylococcus aureas. He was placed on Doxycycline for this. His HgbA1c from 08/23/19 was 6.1. His last Prealbumin from 03/04/17 was 24.1. Encourage nutritional supplementation with protein to help the healing process. He is currently getting HBO for a left diabetic foot ulcer which should help to heal his right long finger wound. If healing is delayed, he would need operative debridement with skin flap or skin graft reconstruction. With his history of Raynaud's and peripheral vascular disease and smoking, he is at increased risk of developing wound healing problems and possible osteomyelitis that would lead to an eventual amputation. He voices understanding. Will also check a finger x-ray, instructed him to get it today since he will be at the [facility]. Followup one week after HBOT. Encouraged the patient to stop smoking as it may have deleterious effects on wound healing. [id number]: [id number] Lelia subq tissue 20 sq cm/<
[2020-01-29 10:01] LABS: Bedside Glucose 192 mg/dL (70-110)
--- NOTE | 2020-01-29 10:33 | HBO.PN.PCM_ITS ---
History of Present Illness Date of Service: 01/29/20 Presenting Chief Complaint: Recent frostbite right long finger with nonhealing necrotic ulcer. RICK GEORGE Jr. is a 59 year old currently undergoing hyperbaric oxygen therapy for Rousseau 3 plantar DFU. Progress: Today represents day for hyperbaric oxygen treatment of the 40 treatments. Tolerance of hyperbaric oxygen therapy: Hyperbaric oxygen therapy treatment was provided as per facility protocols at 2.0 VINNY, 100% oxygen for 90 minutes. He moreno ccessfully had bilateral eustachian tubes placed on Tuesday, January 28, 2020. Patient tolerated treatments well without complaints. Blood sugars have been monitored. He was discharged in good condition. Past Medical History Chronic Problems (Last Updated 01/09/20 @ 13:[address] 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 Zhu of [facility] Essential (primary) hypertension (Chronic) Other specified peripheral vascular diseases (Chronic) Skin ulcer of finger with fat layer exposed (Chronic) necrotic ulcer dorsum right long finger at DIP joint 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) Allergies/Adverse Reactions: Allergies atorvastatin Adverse Reaction (Verified 08/23/19 12:36) Unknown metformin Adverse Reaction (Verified 08/23/19 12:36) Diarrhea Home Medications: Ambulatory Orders Medication Instructions Recorded Ammonium Lactate [Amlactin] 57 gm TP PRN PRN 10/04/17 Celecoxib [Celebrex] 200 mg PO DAILY 10/04/17 Cholecalciferol (Vitamin D3) 5,000 unit PO DAILY 10/04/17 [Vitamin D3] Levomefolate/B6/B12/Algal Oil 1 ea PO DAILY 10/04/17 [Metanx Capsule] Nortriptyline HCl 50 mg PO QHS 10/04/17 Biotin 1 mg PO DAILY 04/01/18 Desonide 0.05% [Desowen 0.05% 1 applic TOPICAL BID 04/01/18 Cream] Diflorasone Diacetate [Psorcon] 1 applicatio TP BID PRN 04/01/18 Insulin Glargine,Hum.rec.anlog 20 unit SQ QHS 04/01/18 [Basaglar Kwikpen U-100] Insulin Lispro [Humalog KwikPen] See Protocol SQ TIDCM 04/01/18 Ketoconazole [Nizoral] 1 applic TOPICAL DAILY PRN 04/01/18 Magnesium 250 mg PO DAILY 04/01/18 metoprolol tartrate 25 mg tablet 12.5 mg PO BID tab MDD 1.5 tabs 07/19/18 albuterol sulfate 90 mcg/actuation 2 puff INHALATION Q4H PRN g 08/13/19 aerosol inhaler amlodipine 10 mg tablet 10 mg PO DAILY 08/13/19 becaplermin 0.01 % topical gel 1 applic TOPICAL DAILY 08/13/19 cetirizine 10 mg tablet 10 mg PO DAILY 08/13/19 gabapentin 300 mg capsule 900 mg PO TID cap 08/13/19 nifedipine 30 mg tablet,extended 30 mg PO DAILY 08/13/19 release simvastatin 10 mg tablet 10 mg PO QHS 08/13/19 vardenafil 20 mg tablet 20 mg PO DAILY PRN 08/13/19 Cyanocobalamin [Vitamin B12] 1,000 mcg IM Q30D 08/22/19 aspirin 81 mg tablet,delayed 162 mg PO DAILY tab MDD . 10/12/19 release baclofen 20 mg tablet 30 mg PO TID tab 10/12/19 cephalexin 500 mg capsule 500 mg PO Q6H cap 10/12/19 famotidine 20 mg tablet 20 mg PO DAILY PRN 10/12/19 furosemide 20 mg tablet 20 mg PO BID PRN tab 10/12/19 lisinopril 5 mg tablet 5 mg PO QDAY #30 tab 01/28/20 Maternal Family History: Family History (Last Reviewed 10/18/19 @ 11:24 by Linda Leon) Other Arthritis Hypertension Family History: Diabetes Paternal Family History: Family History (Last Reviewed 10/18/19 @ 11:24 by Linda Leon) Other Arthritis Hypertension Family History: Diabetes Smoking Status: Current every day smoker Physical Exam Vital Signs Temp Pulse Resp BP 96.4 F L 76 18 129/79 H 01/28/20 09:40 01/28/20 09:40 01/28/20 09:40 01/28/20 09:40 General: Alert, Oriented x3, Cooperative, No apparent distress HEENT: Atraumatic, TM's Clear Lungs: Clear to auscultation, Normal air movement Cardiovascular: Regular rate, Regular Rhythm Psych/Mental Status: Normal Affect, Appropriate, Alert and oriented to time, place, person, mood and affect Assessment/Plan Active Problems (Last Updated 01/09/20 @ 13:[address] 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 grade 3 treated medically Delayed wound healing (Chronic) Malnutrition (Chronic) Peripheral vascular disease (Chronic) Type 2 diabetes mellitus with diabetic polyneuropathy (Chronic) Skin ulcer of finger with fat layer exposed (Chronic) necrotic ulcer dorsum right long finger at DIP joint The patient tolerated the Hyperbaric oxygen treatment well, which will be continued as per his medical plan.
[2020-01-29 11:06] VITALS: BP 107/69; BP 119/64; PULSE 86; RESP 18; TEMP 36.2; TEMP 36.4
[2020-01-29 12:40] LABS: Bedside Glucose 112 mg/dL (70-110)
[2020-01-30 11:36] LABS: Bedside Glucose 218 mg/dL (70-110)
--- NOTE | 2020-01-30 12:28 | HBO.PN.PCM_ITS ---
History of Present Illness Date of Service: 01/30/20 Presenting Chief Complaint: Recent frostbite right long finger with nonhealing necrotic ulcer. RICK GEORGE Jr. is a 59 year old currently undergoing hyperbaric oxygen therapy for Rousseau 3 plantar DFU. Progress: Today represents day for hyperbaric oxygen treatment of the 40 treatments. Tolerance of hyperbaric oxygen therapy: Hyperbaric oxygen therapy treatment was provided as per facility protocols at 2.0 VINNY, 100% oxygen for 90 minutes. He moreno ccessfully had bilateral eustachian tubes placed on Tuesday, January 28, 2020. Patient tolerated treatments well without complaints. Blood sugars have been monitored. He was discharged in good condition. Past Medical History Chronic Problems (Last Updated 01/09/20 @ 13:[address] 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 Zhu of [facility] Essential (primary) hypertension (Chronic) Other specified peripheral vascular diseases (Chronic) Skin ulcer of finger with fat layer exposed (Chronic) necrotic ulcer dorsum right long finger at DIP joint 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) Allergies/Adverse Reactions: Allergies atorvastatin Adverse Reaction (Verified 08/23/19 12:36) Unknown metformin Adverse Reaction (Verified 08/23/19 12:36) Diarrhea Home Medications: Ambulatory Orders Medication Instructions Recorded Ammonium Lactate [Amlactin] 57 gm TP PRN PRN 10/04/17 Celecoxib [Celebrex] 200 mg PO DAILY 10/04/17 Cholecalciferol (Vitamin D3) 5,000 unit PO DAILY 10/04/17 [Vitamin D3] Levomefolate/B6/B12/Algal Oil 1 ea PO DAILY 10/04/17 [Metanx Capsule] Nortriptyline HCl 50 mg PO QHS 10/04/17 Biotin 1 mg PO DAILY 04/01/18 Desonide 0.05% [Desowen 0.05% 1 applic TOPICAL BID 04/01/18 Cream] Diflorasone Diacetate [Psorcon] 1 applicatio TP BID PRN 04/01/18 Insulin Glargine,Hum.rec.anlog 20 unit SQ QHS 04/01/18 [Basaglar Kwikpen U-100] Insulin Lispro [Humalog KwikPen] See Protocol SQ TIDCM 04/01/18 Ketoconazole [Nizoral] 1 applic TOPICAL DAILY PRN 04/01/18 Magnesium 250 mg PO DAILY 04/01/18 metoprolol tartrate 25 mg tablet 12.5 mg PO BID tab MDD 1.5 tabs 07/19/18 albuterol sulfate 90 mcg/actuation 2 puff INHALATION Q4H PRN g 08/13/19 aerosol inhaler amlodipine 10 mg tablet 10 mg PO DAILY 08/13/19 becaplermin 0.01 % topical gel 1 applic TOPICAL DAILY 08/13/19 cetirizine 10 mg tablet 10 mg PO DAILY 08/13/19 gabapentin 300 mg capsule 900 mg PO TID cap 08/13/19 nifedipine 30 mg tablet,extended 30 mg PO DAILY 08/13/19 release simvastatin 10 mg tablet 10 mg PO QHS 08/13/19 vardenafil 20 mg tablet 20 mg PO DAILY PRN 08/13/19 Cyanocobalamin [Vitamin B12] 1,000 mcg IM Q30D 08/22/19 aspirin 81 mg tablet,delayed 162 mg PO DAILY tab MDD . 10/12/19 release baclofen 20 mg tablet 30 mg PO TID tab 10/12/19 cephalexin 500 mg capsule 500 mg PO Q6H cap 10/12/19 famotidine 20 mg tablet 20 mg PO DAILY PRN 10/12/19 furosemide 20 mg tablet 20 mg PO BID PRN tab 10/12/19 lisinopril 5 mg tablet 5 mg PO QDAY #30 tab 01/28/20 Maternal Family History: Family History (Last Reviewed 10/18/19 @ 11:24 by Linda Leon) Other Arthritis Hypertension Family History: Diabetes Paternal Family History: Family History (Last Reviewed 10/18/19 @ 11:24 by Linda Leon) Other Arthritis Hypertension Family History: Diabetes Smoking Status: Current every day smoker Physical Exam Vital Signs Temp Pulse Resp BP 97.6 F L 86 18 119/64 01/29/20 11:06 01/29/20 11:06 01/29/20 11:06 01/29/20 11:06 Assessment/Plan Active Problems (Last Updated 01/09/20 @ 13:[address] 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 grade 3 treated medically Delayed wound healing (Chronic) Malnutrition (Chronic) Peripheral vascular disease (Chronic) Type 2 diabetes mellitus with diabetic polyneuropathy (Chronic) Skin ulcer of finger with fat layer exposed (Chronic) necrotic ulcer dorsum right long finger at DIP joint The patient tolerated the Hyperbaric oxygen treatment well, which will be continued as per his medical plan.
[2020-01-30 12:30] LABS: Bedside Glucose 191 mg/dL (70-110)
[2020-01-30 12:38] VITALS: BP 104/66; PULSE 66; RESP 18; TEMP 36.8; BMI 28.7
[2020-01-30 14:56] VITALS: BP 104/66; BP 121/77; PULSE 66; PULSE 74; RESP 18; TEMP 36.3; TEMP 36.8
--- NOTE | 2020-01-30 15:50 | PCM.WC.PN ---
(1) Chronic ulcer of left foot with necrosis of muscle Status: Chronic Current Visit: Yes Code(s): L97.523 - Non-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ulcer of other part of left foot with necrosis of muscle Comment: capsular layer is in the wound bed. grade 3 treated medically (2) Delayed wound healing Status: Chronic Current Visit: Yes Code(s): T14.8XXD - Other injury of unspecified body region, subsequent encounter (3) Malnutrition Status: Chronic Current Visit: Yes Code(s): E46 - Unspecified protein-calorie malnutrition (4) Peripheral vascular disease Status: Chronic Current Visit: Yes Code(s): I73.9 - Peripheral vascular disease, unspecified (5) Type 2 diabetes mellitus with diabetic polyneuropathy Status: Chronic Current Visit: Yes Code(s): E11.42 - Type 2 diabetes mellitus with diabetic polyneuropathy Type of Wound Date of Service: 01/30/20 Chief Complaint: Left chronic foot ulcer History of Wound: Mr. Espinoza is a 59-year-old with past medical history as stated above who is well-known to the wound center. He is able to offload better at this time. He also recently saw vascular surgery who did not recommend additional intervention at this time. He also had an MRI to rule out osteomyelitis due to the recent increase in ulcer depth which was negative. he denies fever, chill, nausea, vomiting, loss of appetite or pain to the foot. He completed a course of antibiotics as advised for treatment of his grade 3 ulcer. He has proceeded with hyperbaric oxygen therapy and this is going well. He defers surgical resection of the fourth metatarsal head at this time because he admits to not be able to keep pressure off of it and there are [facility] availability conflicts. He also has lower extremity edema. He has been doing well with advancing healing product application, epi-fix, and additional application of total contact cast. Progress of Wound: Improving - Physical Exam Vital Signs Temp Pulse Resp BP 97.3 F L 74 18 121/77 H 01/30/20 14:56 01/30/20 14:56 01/30/20 14:56 01/30/20 14:56 General: Alert, Oriented x3, Cooperative, No apparent distress HEENT: Atraumatic Extremities: No cyanosis, Capillary Refill Less than 3 Seconds, No Calf Tenderness, Diminished Peripheral Pulses, Edema Skin: Ulcer/ Wound - No purulence, erythema, string, odor, infection. There is continued peripheral epithelialization and granulation formation the ulcer bed. The adjacent skin is hairless and atrophic. Wound Measurements and Assessment WC - Nurse 1 - General Ulcer Measurement Start: 01/16/20 09:39 Freq: Status: Active Protocol: Activity Type Activity Date Activity User E-Sign Co-Sign Detail Recorded Client Recorded Date Recorded By Document 01/28/20 09:40 [id number] 01/28/20 09:41 Document 01/30/20 12:38 [id number] 01/30/20 12:40 01/28/20 01/30/20 09:40 12:38 Wound Center Nurse 1 [Ulcer Assessment] #13 R 2nd finger -Combined with other wound No -Current Size (cm) - Length 0.5 -Current Size (cm) - Width 1.4 -Current Size (cm) - Depth 0.2 -Total Square Cm 0.70 -Photo Taken No -Epithelialization Small 1-33% -Tunneling No -Undermining/Tunneling No -Circular Undermining No -Exudate Amt Small -Exudate Type Serosanguineous -Wound Margin Flat & Intact -Granulation Amt Small (1-33%) -Granulation Quality [place] -Slough/Fibrin Yes -Necrosis Amt Medium (34-66%) -Necrotic Tissue Type Adherent Slough -Structure Exposed N/A -Texture ([place]-wound Skin Appearance) Assessed -Moisture ([place]-wound Skin Appearance Assessed,Dry/ ) Scaly -Color ([place]-wound Skin Appearance) Assessed -Temperature ([place]-wound Skin No Abnormality Appearance) (Pt Warm) -Tenderness on Palpation ([place]-wound No Skin Appearance) -Ulcer Cleansing Rinsed/ Irrigated with Saline -Foul Odor after Cleansing No -Anesthetic Used 4% Lidocaine Solution 11. L plantar -Combined with other wound No -Current Size (cm) - Length 1.2 -Current Size (cm) - Width 1.5 -Current Size (cm) - Depth 0.2 -Total Square Cm 1.80 -Photo Taken Yes -Epithelialization Small 1-33% -Tunneling No -Undermining/Tunneling No -Circular Undermining No -Exudate Amt Small -Exudate Type Serosanguineous -Wound Margin Flat & Intact -Granulation Amt Small (1-33%) -Granulation Quality [place] -Slough/Fibrin Yes -Necrosis Amt Large (67-100%) -Necrotic Tissue Type Adherent Slough -Structure Exposed N/A -Texture ([place]-wound Skin Appearance) Assessed,Callus -Moisture ([place]-wound Skin Appearance Assessed,Dry/ ) Scaly -Color ([place]-wound Skin Appearance) Assessed -Temperature ([place]-wound Skin No Abnormality Appearance) (Pt Warm) -Tenderness on Palpation ([place]-wound No Skin Appearance) -Ulcer Cleansing Wound Cleanser -Foul Odor after Cleansing No [Edema Assessment] -Lower Limb Edema Present NA No WC - Nurse 2 - General Ulcer CM Notes Start: 01/16/20 09:39 Freq: Status: Active Protocol: Activity Type Activity Date Activity User E-Sign Co-Sign Detail Recorded Client Recorded Date Recorded By Document 01/28/20 09:52 [id number] 01/28/20 10:00 Document 01/30/20 12:40 [id number] 01/30/20 12:55 01/28/20 01/30/20 09:52 12:40 Wound Center Nurse 2 [Procedure/Treatment] #13 R 2nd finger -Time 09:53 -Correct Patient Yes -Correct Side, Site, Position Yes -Correct Procedure Yes -Procedure Performed Yes -Type of Procedure Debridement -Clinical Debridement Subcutaneous -Post Debridement Size (cm) - Length 0.6 -Post Debridement Size (cm) - Width 2.8 -Post Debridement Size (cm) - Depth 0.2 -Total Square Cm 1.68 -Wound/Ulcer Outcome Not Healed -Ulcer Cleansing Rinsed/ Irrigated with Saline -Foul Odor after Cleansing No -Bioengineered Tissue No -Bleeding Controlled with Pressure -Offloading No -Treatment Response Procedure Tolerated Well 11. L plantar -Time 12:40 -Correct Patient Yes -Correct Side, Site, Position Yes -Correct Procedure Yes -Procedure Performed Yes -Type of Procedure Debridement -Clinical Debridement Subcutaneous -Post Debridement Size (cm) - Length 0.9 -Post Debridement Size (cm) - Width 1.2 -Post Debridement Size (cm) - Depth 0.2 -Total Square Cm 1.08 -Wound/Ulcer Outcome Not Healed -Ulcer Cleansing Rinsed/ Irrigated with Saline -Foul Odor after Cleansing No -Bioengineered Tissue Yes -Type of bioengineered Tissue EPIFIX -Expiration Date 09/16/24 -Product Lot Number [id number] -Percent Used 100 -Saline Lot Number [id number] -Bleeding Controlled with Pressure -Offloading Yes -Type of Offloading Total Contact Cast (TCC) -Treatment Response Procedure Tolerated Well [See Physician Procedure note for Specifics] Pain Scale: 0-10 Numeric [Pain] -Is Patient Pain Free? Yes Yes Musculoskeletal: No Tenderness to Palpation of Joints or Extremities, Muscle Wasting, - - Dorsal contraction of lesser toes including prominent metatarsal heads Neurological: - - Lack of epicritic sensation light touch is consistent with neuropathy status Psych/Mental Status: Normal Affect, Appropriate Debridement Note Post-Debridement Measurements/Treatment WC - Nurse 2 - General Ulcer CM Notes Start: 01/16/20 09:39 Freq: Status: Active Protocol: Activity Type Activity Date Activity User E-Sign Co-Sign Detail Recorded Client Recorded Date Recorded By Document 01/16/20 13:31 [id number] 01/16/20 13:32 Document 01/23/20 12:07 [id number] 01/23/20 12:09 Document 01/28/20 09:52 [id number] 01/28/20 10:00 Document 01/30/20 12:40 [id number] 01/30/20 12:55 01/16/20 01/23/20 01/28/20 13:31 12:07 09:52 Wound Center Nurse 2 #13 R 2nd finger -Time 12:08 09:53 -Correct Patient No Yes -Correct Side, Site, Position No Yes -Correct Procedure No Yes -Procedure Performed No Yes -Type of Procedure Debridement -Clinical Debridement Subcutaneous -Post Debridement Size (cm) - Length 0.6 -Post Debridement Size (cm) - Width 2.8 -Post Debridement Size (cm) - Depth 0.2 -Total Square Cm 1.68 -Wound/Ulcer Outcome Not Healed Not Healed -Ulcer Cleansing Rinsed/ Irrigated with Saline -Foul Odor after Cleansing No -Bioengineered Tissue No -Bleeding Controlled with Pressure Pressure -Offloading No -Treatment Response Procedure Tolerated Well 11. L plantar -Time 13:31 12:08 -Correct Patient Yes Yes -Correct Side, Site, Position Yes Yes -Correct Procedure Yes Yes -Procedure Performed Yes Yes -Type of Procedure Debridement Debridement -Clinical Debridement Subcutaneous Subcutaneous -Post Debridement Size (cm) - Length 1.6 1.2 -Post Debridement Size (cm) - Width 1.6 1.3 -Post Debridement Size (cm) - Depth 0.1 0.2 -Total Square Cm 2.56 1.56 -Wound/Ulcer Outcome Not Healed Not Healed -Ulcer Cleansing Rinsed/ Rinsed/ Irrigated with Irrigated with Saline Saline -Foul Odor after Cleansing No No -Bioengineered Tissue Yes No -Type of bioengineered Tissue EPIFIX -Expiration Date 09/16/24 -Product Lot Number [id number] -Percent Used 100 -Saline Lot Number [id number] -Bleeding Controlled with Pressure Pressure -Offloading Yes Yes -Type of Offloading Total Contact Total Contact Cast (TCC) Cast (TCC) -Treatment Response Procedure Procedure Tolerated Well Tolerated Well Pain Scale: 0-10 Numeric Is Patient Pain Free? Yes Yes Yes 01/30/20 12:40 Wound Center Nurse 2 #13 R 2nd finger -Time -Correct Patient -Correct Side, Site, Position -Correct Procedure -Procedure Performed -Type of Procedure -Clinical Debridement -Post Debridement Size (cm) - Length -Post Debridement Size (cm) - Width -Post Debridement Size (cm) - Depth -Total Square Cm -Wound/Ulcer Outcome -Ulcer Cleansing -Foul Odor after Cleansing -Bioengineered Tissue -Bleeding Controlled with -Offloading -Treatment Response 11. L plantar -Time 12:40 -Correct Patient Yes -Correct Side, Site, Position Yes -Correct Procedure Yes -Procedure Performed Yes -Type of Procedure Debridement -Clinical Debridement Subcutaneous -Post Debridement Size (cm) - Length 0.9 -Post Debridement Size (cm) - Width 1.2 -Post Debridement Size (cm) - Depth 0.2 -Total Square Cm 1.08 -Wound/Ulcer Outcome Not Healed -Ulcer Cleansing Rinsed/ Irrigated with Saline -Foul Odor after Cleansing No -Bioengineered Tissue Yes -Type of bioengineered Tissue EPIFIX -Expiration Date 09/16/24 -Product Lot Number [id number] -Percent Used 100 -Saline Lot Number [id number] -Bleeding Controlled with Pressure -Offloading Yes -Type of Offloading Total Contact Cast (TCC) -Treatment Response Procedure Tolerated Well Pain Scale: 0-10 Numeric Is Patient Pain Free? Yes Wound debrided: sub metatarsal head Laterality: Left Wound Grade/Stage: grade 3 Type of Debridement: Excisional debridement Anesthesia Used: 5% Lidocaine Gel Depth: in the subcutaneous layer Percentage of wound debrided: 100 Instrument Used: #15 blade Tissue Removed: fibrous, devitalized subcutaneous, biofilm, slough Severity: Fat Layer Exposed Amount of bleeding with debridement: Mild Bleeding Controlled with: Pressure Patient tolerated procedure well Assessment/Plan Active Problems (Last Updated 01/09/20 @ 13:[address] 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 grade 3 treated medically Delayed wound healing (Chronic) Malnutrition (Chronic) Peripheral vascular disease (Chronic) Type 2 diabetes mellitus with diabetic polyneuropathy (Chronic) Skin ulcer of finger with fat layer exposed (Chronic) necrotic ulcer dorsum right long finger at DIP joint Assessment: Left foot ulcer with capsule/muscle tissue exposed, Rousseau grade 3 treated for infection/bacterial colonization. Left foot deformities including tailor bunion and hammertoe. Peripheral vascular disease. Diabetes with polyneuropathy. Malnutrition. Delayed healing. Raynaud's disease. Finger ulcer management by Dr. Bishop Plan: I reviewed and discussed his case today. Subcutaneous excisional debridement was performed as noted in the clinical panel to the left foot. He has completed oral antibiotics including Augmentin and ciprofloxacin based off of his prior culture results and appears to be doing better. It is noted he is also being treated for a necrotic finger ulcer with Dr. Bishop. He is continuing on an oral antibiotic for this as well at this time. I will confirm if he is approved for additional application of advanced wound product, epi-fix. This is medically necessary for limb salvage. He understands the indications, planned application, anticipated healing time and management. This was applied again today after verbal consent was obtained according standard protocol. This was secured with a wound veil and Steri-Strips. He was advised to keep this clean, dry, intact until follow-up next week. He tolerated this well. This is medically necessary for limb salvage. To continue proper glycemic control nutritional supplementation optimize healing. Is noted his last hemoglobin A1c we have on file here is 5.9%. He was advised to follow-up with his vascular surgeon, Dr. Pena as scheduled. He had recent updated vascular studies performed and Dr. Pena is considering additional intervention. I recommend proceeding if there are options available. Due to the increased depth he did also go through a recent osteomyelitis work-up. Osteomyelitis signs were not apparent on the MRI and this will be monitored very closely. Compliance was discussed. He was reassured there are no local signs of infection on the foot today. I answered his questions. He had prior capsule muscle tissue exposed and that further was infected per his culture results which would qualify and is awaiting grade 3. Hyperbaric oxygen therapy is an option for him and he was advised to continue. He has been doing well. Additionally, a well-padded total contact cast was applied with the lower extremity in a rectus position. Verbal consent was obtained and he tolerated this well. He was advised the this clean, dry, and intact until follow-up next week. He denies being claustrophobic. We also discussed surgical intervention such as fourth metatarsal head resection. He defers today and appears to be doing well with antibiotic, comprehensive wound care, and hyperbaric therapy. Improved offloading was discussed also he is amendable to proceed with a total contact cast. Verbal consent was obtained and this was applied according standard protocol in a neutral position and also well-padded. He tolerated this well. She was advised to keep this clean, dry, and intact until follow-up next week. To return to the wound healing center in 1 week or call sooner if he has any questions or concerns.
[2020-01-31 11:21] LABS: Bedside Glucose 84 mg/dL (70-110)
[2020-01-31 18:30] LABS: Bedside Glucose 83 mg/dL (70-110)
[2020-01-31 18:30] LABS: Bedside Glucose 95 mg/dL (70-110)
[2020-02-01 10:56] LABS: Bedside Glucose 129 mg/dL (70-110)
[2020-02-01 13:51] LABS: Bedside Glucose 164 mg/dL (70-110)
[2020-02-01 14:27] VITALS: BP 124/53; BP 126/70; PULSE 72; PULSE 88; RESP 18; TEMP 36.4; TEMP 36.8
[2020-02-01 14:51] LABS: Bedside Glucose 120 mg/dL (70-110)
[2020-02-01 14:51] LABS: Bedside Glucose 122 mg/dL (70-110)
--- NOTE | 2020-02-01 16:12 | HBO.PN.PCM_ITS ---
History of Present Illness Date of Service: 02/01/20 Presenting Chief Complaint: Left chronic foot ulcer RICK GEORGE Jr. is a 59 year old currently undergoing hyperbaric oxygen therapy for Rousseau 3 plantar DFU. Progress: Today represents hyperbaric oxygen treatment of 40 planned treatments. Tolerance of hyperbaric oxygen therapy: Hyperbaric oxygen therapy treatment was provided as per facility protocols at 2.0 VINNY, 100% oxygen for 90 minutes. He successfully had bilateral eustachian tubes placed on Tuesday, January 28, 2020. Patient tolerated treatments well without complaints. Blood sugars have been monitored. He was discharged in good condition. Past Medical History Chronic Problems (Last Updated 01/09/20 @ 13:[address] 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 Zhu of [facility] Essential (primary) hypertension (Chronic) Other specified peripheral vascular diseases (Chronic) Skin ulcer of finger with fat layer exposed (Chronic) necrotic ulcer dorsum right long finger at DIP joint 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) Allergies/Adverse Reactions: Allergies atorvastatin Adverse Reaction (Verified 08/23/19 12:36) Unknown metformin Adverse Reaction (Verified 08/23/19 12:36) Diarrhea Home Medications: Ambulatory Orders Medication Instructions Recorded Ammonium Lactate [Amlactin] 57 gm TP PRN PRN 10/04/17 Celecoxib [Celebrex] 200 mg PO DAILY 10/04/17 Cholecalciferol (Vitamin D3) 5,000 unit PO DAILY 10/04/17 [Vitamin D3] Levomefolate/B6/B12/Algal Oil 1 ea PO DAILY 10/04/17 [Metanx Capsule] Nortriptyline HCl 50 mg PO QHS 10/04/17 Biotin 1 mg PO DAILY 04/01/18 Desonide 0.05% [Desowen 0.05% 1 applic TOPICAL BID 04/01/18 Cream] Diflorasone Diacetate [Psorcon] 1 applicatio TP BID PRN 04/01/18 Insulin Glargine,Hum.rec.anlog 20 unit SQ QHS 04/01/18 [Basaglar Kwikpen U-100] Insulin Lispro [Humalog KwikPen] See Protocol SQ TIDCM 04/01/18 Ketoconazole [Nizoral] 1 applic TOPICAL DAILY PRN 04/01/18 Magnesium 250 mg PO DAILY 04/01/18 metoprolol tartrate 25 mg tablet 12.5 mg PO BID tab MDD 1.5 tabs 07/19/18 albuterol sulfate 90 mcg/actuation 2 puff INHALATION Q4H PRN g 08/13/19 aerosol inhaler amlodipine 10 mg tablet 10 mg PO DAILY 08/13/19 becaplermin 0.01 % topical gel 1 applic TOPICAL DAILY 08/13/19 cetirizine 10 mg tablet 10 mg PO DAILY 08/13/19 gabapentin 300 mg capsule 900 mg PO TID cap 08/13/19 nifedipine 30 mg tablet,extended 30 mg PO DAILY 08/13/19 release simvastatin 10 mg tablet 10 mg PO QHS 08/13/19 vardenafil 20 mg tablet 20 mg PO DAILY PRN 08/13/19 Cyanocobalamin [Vitamin B12] 1,000 mcg IM Q30D 08/22/19 aspirin 81 mg tablet,delayed 162 mg PO DAILY tab MDD . 10/12/19 release baclofen 20 mg tablet 30 mg PO TID tab 10/12/19 cephalexin 500 mg capsule 500 mg PO Q6H cap 10/12/19 famotidine 20 mg tablet 20 mg PO DAILY PRN 10/12/19 furosemide 20 mg tablet 20 mg PO BID PRN tab 10/12/19 lisinopril 5 mg tablet 5 mg PO QDAY #30 tab 01/28/20 Maternal Family History: Family History (Last Reviewed 10/18/19 @ 11:24 by Linda Leon) Other Arthritis Hypertension Family History: Diabetes Paternal Family History: Family History (Last Reviewed 10/18/19 @ 11:24 by Linda Leon) Other Arthritis Hypertension Family History: Diabetes Smoking Status: Current every day smoker Physical Exam Vital Signs Temp Pulse Resp BP 98.3 F 88 18 126/70 H 02/01/20 14:27 02/01/20 14:27 02/01/20 14:27 02/01/20 14:27 General: Alert, Oriented x3, Cooperative, No apparent distress Psych/Mental Status: Normal Affect, Appropriate Assessment/Plan Active Problems (Last Updated 01/09/20 @ 13:[address] 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 grade 3 treated medically Delayed wound healing (Chronic) Malnutrition (Chronic) Peripheral vascular disease (Chronic) Type 2 diabetes mellitus with diabetic polyneuropathy (Chronic) Skin ulcer of finger with fat layer exposed (Chronic) necrotic ulcer dorsum right long finger at DIP joint The patient tolerated the Hyperbaric oxygen treatment well, which will be continued as per his medical plan.
[2020-02-04 09:13] VITALS: BP 132/48; PULSE 81; RESP 18; TEMP 36; BMI 28.7
[2020-02-04 09:41] LABS: Bedside Glucose 206 mg/dL (70-110)
[2020-02-04 13:01] LABS: Bedside Glucose 81 mg/dL (70-110)
[2020-02-04 15:17] VITALS: BP 116/58; BP 132/48; PULSE 73; PULSE 81; RESP 18; TEMP 36; TEMP 36.7
--- NOTE | 2020-02-04 21:20 | PN.PCM_ITS ---
Type of Wound Date of Service: 02/04/20 Chief Complaint: Recent frostbite right long finger with nonhealing necrotic ulcer. History of Wound: 59-year-old man with a history of diabetes who is presently being seen for a left diabetic foot ulcer has some skin necrosis on the dorsum right long finger at the DIP joint. He sustained frostbite back on October 03, 2019 involving his left long finger, right index finger, right long finger, and right ring finger. He was seen at [facility]. After careful observation to look for areas of demarcation, all the fingers survived with the exception of some skin necrosis on the right long finger. He became concerned recently because of increased pain and drainage from the eschar. Patient is right hand dominant. A wound culture from 01/07/20 was positive for Staphylococcus aureas. He has been placed on Doxycycline for this. Wound care to right long finger is moistened Tegan covered by gauze and using coband to hold in place. Today denies any fevers. Patient states he has a good appetite. Progress of Wound: Improved. - Physical Exam Vital Signs Temp Pulse Resp BP 96.8 F L 81 18 132/48 H 02/04/20 15:17 02/04/20 15:17 02/04/20 15:17 02/04/20 15:17 Wound Measurements and Assessment WC - Nurse 1 - General Ulcer Measurement Start: 01/16/20 09:39 Freq: Status: Active Protocol: Activity Type Activity Date Activity User E-Sign Co-Sign Detail Recorded Client Recorded Date Recorded By Document 02/04/20 09:13 RB [id number] 02/04/20 09:15 RB 02/04/20 09:13 Wound Center Nurse 1 [Ulcer Assessment] #13 Right Long Finger -Combined with other wound No -Current Size (cm) - Length 0.5 -Current Size (cm) - Width 0.8 -Current Size (cm) - Depth 0.1 -Total Square Cm 0.40 -Tunneling No -Undermining/Tunneling No -Circular Undermining No -Exudate Amt None Present -Wound Margin Flat & Intact -Granulation Amt None Present (0 %) -Slough/Fibrin Yes -Necrosis Amt Large (67-100%) -Necrotic Tissue Type Adherent Slough -Structure Exposed N/A -Texture (Mechelle-wound Skin Appearance) Assessed, Scarring -Moisture (Mechelle-wound Skin Appearance Assessed ) -Color (Mechelle-wound Skin Appearance) Assessed -Temperature (Mechelle-wound Skin No Abnormality Appearance) (Pt Warm) -Tenderness on Palpation (Mechelle-wound No Skin Appearance) -Ulcer Cleansing Wound Cleanser -Foul Odor after Cleansing No -Anesthetic Used 5% Lidocaine Gel Debridement Note Post-Debridement Measurements/Treatment WC - Nurse 2 - General Ulcer CM Notes Start: 01/16/20 09:39 Freq: Status: Active Protocol: Activity Type Activity Date Activity User E-Sign Co-Sign Detail Recorded Client Recorded Date Recorded By Document 01/16/20 13:31 [id number] 01/16/20 13:32 Document 01/23/20 12:07 [id number] 01/23/20 12:09 Document 01/28/20 09:52 [id number] 01/28/20 10:00 Document 01/30/20 12:40 [id number] 01/30/20 12:55 01/16/20 01/23/20 01/28/20 13:31 12:07 09:52 Wound Center Nurse 2 #13 Right Long Finger -Time 12:08 09:53 -Correct Patient No Yes -Correct Side, Site, Position No Yes -Correct Procedure No Yes -Procedure Performed No Yes -Type of Procedure Debridement -Clinical Debridement Subcutaneous -Post Debridement Size (cm) - Length 0.6 -Post Debridement Size (cm) - Width 2.8 -Post Debridement Size (cm) - Depth 0.2 -Total Square Cm 1.68 -Wound/Ulcer Outcome Not Healed Not Healed -Ulcer Cleansing Rinsed/ Irrigated with Saline -Foul Odor after Cleansing No -Bioengineered Tissue No -Bleeding Controlled with Pressure Pressure -Offloading No -Treatment Response Procedure Tolerated Well 11. L plantar -Time 13:31 12:08 -Correct Patient Yes Yes -Correct Side, Site, Position Yes Yes -Correct Procedure Yes Yes -Procedure Performed Yes Yes -Type of Procedure Debridement Debridement -Clinical Debridement Subcutaneous Subcutaneous -Post Debridement Size (cm) - Length 1.6 1.2 -Post Debridement Size (cm) - Width 1.6 1.3 -Post Debridement Size (cm) - Depth 0.1 0.2 -Total Square Cm 2.56 1.56 -Wound/Ulcer Outcome Not Healed Not Healed -Ulcer Cleansing Rinsed/ Rinsed/ Irrigated with Irrigated with Saline Saline -Foul Odor after Cleansing No No -Bioengineered Tissue Yes No -Type of bioengineered Tissue EPIFIX -Expiration Date 09/16/24 -Product Lot Number [id number] -Percent Used 100 -Saline Lot Number [id number] -Bleeding Controlled with Pressure Pressure -Offloading Yes Yes -Type of Offloading Total Contact Total Contact Cast (TCC) Cast (TCC) -Treatment Response Procedure Procedure Tolerated Well Tolerated Well Pain Scale: 0-10 Numeric Is Patient Pain Free? Yes Yes Yes 01/30/20 12:40 Wound Center Nurse 2 #13 R 2nd finger -Time -Correct Patient -Correct Side, Site, Position -Correct Procedure -Procedure Performed -Type of Procedure -Clinical Debridement -Post Debridement Size (cm) - Length -Post Debridement Size (cm) - Width -Post Debridement Size (cm) - Depth -Total Square Cm -Wound/Ulcer Outcome -Ulcer Cleansing -Foul Odor after Cleansing -Bioengineered Tissue -Bleeding Controlled with -Offloading -Treatment Response 11. L plantar -Time 12:40 -Correct Patient Yes -Correct Side, Site, Position Yes -Correct Procedure Yes -Procedure Performed Yes -Type of Procedure Debridement -Clinical Debridement Subcutaneous -Post Debridement Size (cm) - Length 0.9 -Post Debridement Size (cm) - Width 1.2 -Post Debridement Size (cm) - Depth 0.2 -Total Square Cm 1.08 -Wound/Ulcer Outcome Not Healed -Ulcer Cleansing Rinsed/ Irrigated with Saline -Foul Odor after Cleansing No -Bioengineered Tissue Yes -Type of bioengineered Tissue EPIFIX -Expiration Date 09/16/24 -Product Lot Number [id number] -Percent Used 100 -Saline Lot Number [id number] -Bleeding Controlled with Pressure -Offloading Yes -Type of Offloading Total Contact Cast (TCC) -Treatment Response Procedure Tolerated Well Pain Scale: 0-10 Numeric Is Patient Pain Free? Yes Wound debrided: #13 Right long finger. Laterality: Right Wound Grade/Stage: 2. Type of Debridement: Excisional debridement Anesthesia Used: 4% Lidocaine Solution Depth: Down to and including healthy tissue, in the subcutaneous layer Percentage of wound debrided: 100 Instrument Used: 3mm curette Tissue Removed: subcutaneous tissue. Severity: Fat Layer Exposed Amount of bleeding with debridement: Mild Bleeding Controlled with: Pressure Patient tolerated procedure well Assessment/Plan RAD/Finger(s) Min 2 Views IMPRESSION: Soft tissue swelling. Vascular calcification. 3 tiny bony densities overlying the distal interphalangeal joint of the third digit along the dorsal aspect. Electronically Signed: Chapo Viramontes, at 15:12 EDT , Service support , Active Problems (Last Updated 01/09/20 @ 13:[address] 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 grade 3 treated medically Delayed wound healing (Chronic) Malnutrition (Chronic) Peripheral vascular disease (Chronic) Type 2 diabetes mellitus with diabetic polyneuropathy (Chronic) Skin ulcer of finger with fat layer exposed (Chronic) necrotic ulcer dorsum right long finger at DIP joint Assessment: 1. Nonhealing necrotic ulcer dorsum right long finger at DIP joint. 2. Diabetes mellitus. 3. History of recent frostbite. 4. Raynaud's disease. 5. Peripheral vascular disease. 6. Smoker. Plan: Continue Tegan dressing changes daily. X-ray from 01/28/20 showed Vascular calcification. 3 tiny bony densities overlying the distal interphalangeal joint of the third digit along the dorsal aspect. There was no evidence of osteomyelitis. If those bony densities cause pain in the future, they may need to be excised. Will monitor. Encourage range of motion exercises to minimize stiffness. A wound culture from 01/07/20 was positive for Staphylococcus aureas. He was placed on Doxycycline for this. His HgbA1c from 08/23/19 was 6.1. His last Prealbumin from 03/04/17 was 24.1. Encourage nutritional supplementation with protein to help the healing process. He is currently getting HBO for a left diabetic foot ulcer which should help to heal his right long finger wound. If healing is delayed, he would need operative debridement with skin flap or skin graft reconstruction. With his history of Raynaud's and peripheral vascular disease and smoking, he is at increased risk of developing wound healing problems and possible osteomyelitis that would lead to an eventual amputation. He voices understanding. He's also at risk for amputation because he gets chemicals on his finger through his cotton gloves at work. He states he doesn't have time to wash his hands often while at work. Encouraged the patient to stop smoking as it may have deleterious effects on wound healing. Followup 2 weeks. [id number]: [id number] Lelia subq tissue 20 sq cm/< - ICD-10 - L98.492, I96, Z91.89, E11.9, I73.00, I73.9, F17.200
--- NOTE | 2020-02-04 21:57 | PCM.HBO.PN ---
History of Present Illness Date of Service: 02/04/20 Presenting Chief Complaint: Left plantar Rousseau grade 3 diabetic foot ulcer. RICK GEORGE Jr. is a 59 year old currently undergoing hyperbaric oxygen therapy for left plantar Rousseau grade 3 diabetic foot ulcer. Progress: Today represents 22nd hyperbaric oxygen treatment of 40 planned treatments. Tolerance of hyperbaric oxygen therapy: Hyperbaric oxygen treatment was provided as per the facility's protocol at 2.0 VINNY and 100% oxygen for 90 minutes. The patient tolerated hyperbaric oxygen well, without complications or complaints. Upon emergence of the hyperbaric chamber the patient's vital signs remained stable. The patient did have barotrauma that occurred to the bilateral TMs after his first HBO treatment and therefore he received bilateral tympanostomy tubes on 12/20/2019. The patient denies any discomfort or pain. Blood glucose pre-treatment was 206. Blood glucose post-treatment was 81. He was discharged in good condition. Past Medical History Chronic Problems (Last Updated 01/09/20 @ 13:[address] 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 Zhu of [facility] Essential (primary) hypertension (Chronic) Other specified peripheral vascular diseases (Chronic) Skin ulcer of finger with fat layer exposed (Chronic) necrotic ulcer dorsum right long finger at DIP joint 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) Allergies/Adverse Reactions: Allergies atorvastatin Adverse Reaction (Verified 08/23/19 12:36) Unknown metformin Adverse Reaction (Verified 08/23/19 12:36) Diarrhea Home Medications: Ambulatory Orders Medication Instructions Recorded Ammonium Lactate [Amlactin] 57 gm TP PRN PRN 10/04/17 Celecoxib [Celebrex] 200 mg PO DAILY 10/04/17 Cholecalciferol (Vitamin D3) 5,000 unit PO DAILY 10/04/17 [Vitamin D3] Levomefolate/B6/B12/Algal Oil 1 ea PO DAILY 10/04/17 [Metanx Capsule] Nortriptyline HCl 50 mg PO QHS 10/04/17 Biotin 1 mg PO DAILY 04/01/18 Desonide 0.05% [Desowen 0.05% 1 applic TOPICAL BID 04/01/18 Cream] Diflorasone Diacetate [Psorcon] 1 applicatio TP BID PRN 04/01/18 Insulin Glargine,Hum.rec.anlog 20 unit SQ QHS 04/01/18 [Basaglar Kwikpen U-100] Insulin Lispro [Humalog KwikPen] See Protocol SQ TIDCM 04/01/18 Ketoconazole [Nizoral] 1 applic TOPICAL DAILY PRN 04/01/18 Magnesium 250 mg PO DAILY 04/01/18 metoprolol tartrate 25 mg tablet 12.5 mg PO BID tab MDD 1.5 tabs 07/19/18 albuterol sulfate 90 mcg/actuation 2 puff INHALATION Q4H PRN g 08/13/19 aerosol inhaler amlodipine 10 mg tablet 10 mg PO DAILY 08/13/19 becaplermin 0.01 % topical gel 1 applic TOPICAL DAILY 08/13/19 cetirizine 10 mg tablet 10 mg PO DAILY 08/13/19 gabapentin 300 mg capsule 900 mg PO TID cap 08/13/19 nifedipine 30 mg tablet,extended 30 mg PO DAILY 08/13/19 release simvastatin 10 mg tablet 10 mg PO QHS 08/13/19 vardenafil 20 mg tablet 20 mg PO DAILY PRN 08/13/19 Cyanocobalamin [Vitamin B12] 1,000 mcg IM Q30D 08/22/19 aspirin 81 mg tablet,delayed 162 mg PO DAILY tab MDD . 10/12/19 release baclofen 20 mg tablet 30 mg PO TID tab 10/12/19 cephalexin 500 mg capsule 500 mg PO Q6H cap 10/12/19 famotidine 20 mg tablet 20 mg PO DAILY PRN 10/12/19 furosemide 20 mg tablet 20 mg PO BID PRN tab 10/12/19 lisinopril 5 mg tablet 5 mg PO QDAY #30 tab 01/28/20 Maternal Family History: Family History (Last Reviewed 10/18/19 @ 11:24 by Linda Leon) Other Arthritis Hypertension Family History: Diabetes Paternal Family History: Family History (Last Reviewed 10/18/19 @ 11:24 by Linda Leon) Other Arthritis Hypertension Family History: Diabetes Smoking Status: Current every day smoker Physical Exam Vital Signs Temp Pulse Resp BP 96.8 F L 81 18 132/48 H 02/04/20 15:17 02/04/20 15:17 02/04/20 15:17 02/04/20 15:17 Assessment/Plan Active Problems (Last Updated 01/09/20 @ 13:[address] 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 grade 3 treated medically Delayed wound healing (Chronic) Malnutrition (Chronic) Peripheral vascular disease (Chronic) Type 2 diabetes mellitus with diabetic polyneuropathy (Chronic) Skin ulcer of finger with fat layer exposed (Chronic) necrotic ulcer dorsum right long finger at DIP joint HBO Charges CPT - 93389 ICD-10 - E11.621, E11.9, E11.42, F17.200
[2020-02-05 10:11] LABS: Bedside Glucose 86 mg/dL (70-110)
[2020-02-05 10:31] LABS: Bedside Glucose 82 mg/dL (70-110)
[2020-02-05 11:05] LABS: Bedside Glucose 89 mg/dL (70-110)
[2020-02-06 10:15] LABS: Bedside Glucose 288 mg/dL (70-110)
[2020-02-06 12:25] LABS: Bedside Glucose 223 mg/dL (70-110)
--- NOTE | 2020-02-06 12:30 | PCM.HBO.PN ---
History of Present Illness Date of Service: 02/06/20 Presenting Chief Complaint: Left plantar Rousseau grade 3 diabetic foot ulcer. RICK GEORGE Jr. is a 59 year old currently undergoing hyperbaric oxygen therapy for left plantar Rousseau grade 3 diabetic foot ulcer. Progress: Today represents 23rd hyperbaric oxygen treatment of 40 planned treatments. Tolerance of hyperbaric oxygen therapy: Hyperbaric oxygen treatment was provided as per the facility's protocol at 2.0 VINNY and 100% oxygen for 90 minutes. The patient tolerated hyperbaric oxygen well, without complications or complaints. Upon emergence of the hyperbaric chamber the patient's vital signs remained stable. The patient did have barotrauma that occurred to the bilateral TMs after his first HBO treatment and therefore he received bilateral tympanostomy tubes on 12/20/2019. The patient denies any discomfort or pain. Blood glucose pre-treatment was 206. Blood glucose post-treatment was 81. He was discharged in good condition. Past Medical History Chronic Problems (Last Updated 01/09/20 @ 13:[address] 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 Zhu of [facility] Essential (primary) hypertension (Chronic) Other specified peripheral vascular diseases (Chronic) Skin ulcer of finger with fat layer exposed (Chronic) necrotic ulcer dorsum right long finger at DIP joint 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) Allergies/Adverse Reactions: Allergies atorvastatin Adverse Reaction (Verified 08/23/19 12:36) Unknown metformin Adverse Reaction (Verified 08/23/19 12:36) Diarrhea Home Medications: Ambulatory Orders Medication Instructions Recorded Ammonium Lactate [Amlactin] 57 gm TP PRN PRN 10/04/17 Celecoxib [Celebrex] 200 mg PO DAILY 10/04/17 Cholecalciferol (Vitamin D3) 5,000 unit PO DAILY 10/04/17 [Vitamin D3] Levomefolate/B6/B12/Algal Oil 1 ea PO DAILY 10/04/17 [Metanx Capsule] Nortriptyline HCl 50 mg PO QHS 10/04/17 Biotin 1 mg PO DAILY 04/01/18 Desonide 0.05% [Desowen 0.05% 1 applic TOPICAL BID 04/01/18 Cream] Diflorasone Diacetate [Psorcon] 1 applicatio TP BID PRN 04/01/18 Insulin Glargine,Hum.rec.anlog 20 unit SQ QHS 04/01/18 [Basaglar Kwikpen U-100] Insulin Lispro [Humalog KwikPen] See Protocol SQ TIDCM 04/01/18 Ketoconazole [Nizoral] 1 applic TOPICAL DAILY PRN 04/01/18 Magnesium 250 mg PO DAILY 04/01/18 metoprolol tartrate 25 mg tablet 12.5 mg PO BID tab MDD 1.5 tabs 07/19/18 albuterol sulfate 90 mcg/actuation 2 puff INHALATION Q4H PRN g 08/13/19 aerosol inhaler amlodipine 10 mg tablet 10 mg PO DAILY 08/13/19 becaplermin 0.01 % topical gel 1 applic TOPICAL DAILY 08/13/19 cetirizine 10 mg tablet 10 mg PO DAILY 08/13/19 gabapentin 300 mg capsule 900 mg PO TID cap 08/13/19 nifedipine 30 mg tablet,extended 30 mg PO DAILY 08/13/19 release simvastatin 10 mg tablet 10 mg PO QHS 08/13/19 vardenafil 20 mg tablet 20 mg PO DAILY PRN 08/13/19 Cyanocobalamin [Vitamin B12] 1,000 mcg IM Q30D 08/22/19 aspirin 81 mg tablet,delayed 162 mg PO DAILY tab MDD . 10/12/19 release baclofen 20 mg tablet 30 mg PO TID tab 10/12/19 cephalexin 500 mg capsule 500 mg PO Q6H cap 10/12/19 famotidine 20 mg tablet 20 mg PO DAILY PRN 10/12/19 furosemide 20 mg tablet 20 mg PO BID PRN tab 10/12/19 lisinopril 5 mg tablet 5 mg PO QDAY #30 tab 01/28/20 Maternal Family History: Family History (Last Reviewed 10/18/19 @ 11:24 by Linda Leon) Other Arthritis Hypertension Family History: Diabetes Paternal Family History: Family History (Last Reviewed 10/18/19 @ 11:24 by Linda Leon) Other Arthritis Hypertension Family History: Diabetes Smoking Status: Current every day smoker Physical Exam Vital Signs Temp Pulse Resp BP 96.8 F L 81 18 132/48 H 02/04/20 15:17 02/04/20 15:17 02/04/20 15:17 02/04/20 15:17 Assessment/Plan Active Problems (Last Updated 01/09/20 @ 13:[address] 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 grade 3 treated medically Delayed wound healing (Chronic) Malnutrition (Chronic) Peripheral vascular disease (Chronic) Type 2 diabetes mellitus with diabetic polyneuropathy (Chronic) Skin ulcer of finger with fat layer exposed (Chronic) necrotic ulcer dorsum right long finger at DIP joint The patient tolerated the Hyperbaric oxygen treatment well, which will be continued as per his medical plan.
[2020-02-06 12:47] VITALS: BP 132/48; PULSE 81; RESP 20; TEMP 36; BMI 28.7
[2020-02-06 13:31] VITALS: BP 101/67; BP 132/72; PULSE 75; PULSE 90; RESP 18; TEMP 36; TEMP 36.8
--- NOTE | 2020-02-06 16:37 | PCM.WC.PN ---
(1) Chronic ulcer of left foot with necrosis of muscle Status: Chronic Current Visit: Yes Code(s): L97.523 - Non-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ulcer of other part of left foot with necrosis of muscle Comment: capsular layer is in the wound bed. grade 3 treated medically (2) Delayed wound healing Status: Chronic Current Visit: Yes Code(s): T14.8XXD - Other injury of unspecified body region, subsequent encounter (3) Malnutrition Status: Chronic Current Visit: Yes Code(s): E46 - Unspecified protein-calorie malnutrition (4) Peripheral vascular disease Status: Chronic Current Visit: Yes Code(s): I73.9 - Peripheral vascular disease, unspecified (5) Type 2 diabetes mellitus with diabetic polyneuropathy Status: Chronic Current Visit: Yes Code(s): E11.42 - Type 2 diabetes mellitus with diabetic polyneuropathy (6) Non-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ulcer of other part of right foot with fat layer exposed Status: Chronic Current Visit: Yes Code(s): L97.512 - Non-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ulcer of other part of right foot with fat layer exposed (7) Hammertoe of right foot Status: Chronic Current Visit: Yes Code(s): M20.41 - Other hammer toe(s) (acquired), right foot Type of Wound Date of Service: 02/06/20 Chief Complaint: Left foot ulcer. New irritation to right fifth toe History of Wound: This 59-year-old male presents for follow-up of chronic left foot ulcer site. He continues to undergo hyperbaric oxygen therapy due to the grade 3 status. He has tolerated this well. He did have to miss 1 visit due to hypoglycemia last week. He denies fever, chill, nausea, vomiting, odor or redness. He also kept his total contact cast to left foot intact. He reports a new irritation to his right fifth toe and asked for an evaluation. He thinks he irritated it within the past week and is not sure if he has a wound or if this is a nail issue. He denies known drainage or redness. He is a [place] and has started planting his corn already. Progress of Wound: Improved left foot. New right fifth toe ulcer - Physical Exam Vital Signs Temp Pulse Resp BP 96.8 F L 90 18 132/72 H 02/06/20 13:31 02/06/20 13:31 02/06/20 13:31 02/06/20 13:31 General: Alert, Oriented x3, Cooperative, No apparent distress HEENT: Atraumatic Extremities: No cyanosis, Capillary Refill Less than 3 Seconds, No Calf Tenderness, Diminished Peripheral Pulses, Edema - Mild Skin: Ulcer/ Wound - No purulence, erythema, streaking, odor, infection. There is improvement with peripheral epithelialization and decreased depth to the left foot ulcer. There is no longer any fibrous tissue in this ulcer. There is a new skin discontinuity to the dorsal lateral fifth toe ulcer site with a granular base and no exposed bone or joint. No interdigital maceration or necrosis Wound Measurements and Assessment WC - Nurse 1 - General Ulcer Measurement Start: 01/16/20 09:39 Freq: Status: Active Protocol: Activity Type Activity Date Activity User E-Sign Co-Sign Detail Recorded Client Recorded Date Recorded By Document 02/04/20 09:13 RB [id number] 02/04/20 09:15 RB Document 02/06/20 12:47 CS [id number] 02/06/20 12:53 CS 02/04/20 02/06/20 09:13 12:47 Wound Center Nurse 1 [Ulcer Assessment] #13 R 2nd finger -Combined with other wound No -Current Size (cm) - Length 0.5 -Current Size (cm) - Width 0.8 -Current Size (cm) - Depth 0.1 -Total Square Cm 0.40 -Tunneling No -Undermining/Tunneling No -Circular Undermining No -Exudate Amt None Present -Wound Margin Flat & Intact -Granulation Amt None Present (0 %) -Slough/Fibrin Yes -Necrosis Amt Large (67-100%) -Necrotic Tissue Type Adherent Slough -Structure Exposed N/A -Texture (M[place]helle-wound Skin Appearance) Assessed, Scarring -Moisture ([place]echelle-wound Skin Appearance Assessed ) -Color ([place]helle-wound Skin Appearance) Assessed -Temperature ([place]le-wound Skin No Abnormality Appearance) (Pt Warm) -Tenderness on Palpation ([place]helle-wound No Skin Appearance) -Ulcer Cleansing Wound Cleanser -Foul Odor after Cleansing No -Anesthetic Used 5% Lidocaine Gel 11. L plantar -Combined with other wound No -Current Size (cm) - Length 1.1 -Current Size (cm) - Width 1.2 -Current Size (cm) - Depth 0.1 -Total Square Cm 1.32 -Photo Taken No -Tunneling No -Undermining/Tunneling No -Circular Undermining No -Exudate Amt Small -Exudate Type Serosanguineous -Wound Margin Thickened -Granulation Amt Medium (34-66%) -Granulation Quality [place] -Slough/Fibrin Yes -Necrosis Amt Small (1-33%) -Necrotic Tissue Type Adherent Slough -Structure Exposed N/A -Texture ([place]helle-wound Skin Appearance) Assessed,Callus -Moisture ([place]helle-wound Skin Appearance Assessed ) -Color ([place]helle-wound Skin Appearance) Assessed -Temperature ([place]le-wound Skin No Abnormality Appearance) (Pt Warm) -Tenderness on Palpation ([place]echelle-wound No Skin Appearance) -Ulcer Cleansing Wound Cleanser -Foul Odor after Cleansing No -Anesthetic Used 4% Lidocaine Solution WC - Nurse 2 - General Ulcer CM Notes Start: 01/16/20 09:39 Freq: Status: Active Protocol: Activity Type Activity Date Activity User E-Sign Co-Sign Detail Recorded Client Recorded Date Recorded By Document 02/06/20 13:12 MARJORIE [id number] 02/06/20 13:15 MARJORIE 02/06/20 13:12 Wound Center Nurse 2 [Procedure/Treatment] 14-right 5th toe -Time 13:14 -Correct Patient Yes -Correct Side, Site, Position Yes -Correct Procedure Yes -Procedure Performed Yes -Type of Procedure Debridement -Clinical Debridement Subcutaneous -Post Debridement Size (cm) - Length 0.9 -Post Debridement Size (cm) - Width 0.5 -Post Debridement Size (cm) - Depth 0.1 -Total Square Cm 0.45 -Wound/Ulcer Outcome Not Healed -Ulcer Cleansing Rinsed/ Irrigated with Saline -Foul Odor after Cleansing No -Bioengineered Tissue No -Bleeding Controlled with Pressure -Offloading Yes -Type of Offloading Surgical Shoe -Treatment Response Procedure Tolerated Well 11. L plantar -Time 13:13 -Correct Patient Yes -Correct Side, Site, Position Yes -Correct Procedure Yes -Procedure Performed Yes -Type of Procedure Debridement -Clinical Debridement Subcutaneous -Post Debridement Size (cm) - Length 1.0 -Post Debridement Size (cm) - Width 1.1 -Post Debridement Size (cm) - Depth 0.2 -Total Square Cm 1.10 -Wound/Ulcer Outcome Not Healed -Ulcer Cleansing Rinsed/ Irrigated with Saline -Foul Odor after Cleansing No -Bioengineered Tissue Yes -Type of bioengineered Tissue EPIFIX -Expiration Date 09/16/24 -Product Lot Number [id number] -Percent Used 100 -Saline Lot Number [id number] -Bleeding Controlled with Pressure -Offloading Yes -Type of Offloading Total Contact Cast (TCC) -Treatment Response Procedure Tolerated Well [See Physician Procedure note for Specifics] Pain Scale: 0-10 Numeric [Pain] -Is Patient Pain Free? Yes Musculoskeletal: No Tenderness to Palpation of Joints or Extremities, Muscle Wasting, - - Dorsal contraction and varus rotation of lesser toe bilateral Neurological: - - Lack of epicritic sensation light touch is consistent with neuropathy status Psych/Mental Status: Normal Affect, Appropriate Debridement Note Post-Debridement Measurements/Treatment WC - Nurse 2 - General Ulcer CM Notes Start: 01/16/20 09:39 Freq: Status: Active Protocol: Activity Type Activity Date Activity User E-Sign Co-Sign Detail Recorded Client Recorded Date Recorded By Document 01/16/20 13:31 [id number] 01/16/20 13:32 Document 01/23/20 12:07 [id number] 01/23/20 12:09 Document 01/28/20 09:52 [id number] 01/28/20 10:00 Document 01/30/20 12:40 [id number] 01/30/20 12:55 Document 02/06/20 13:12 [id number] 02/06/20 13:15 01/16/20 01/23/20 01/28/20 13:31 12:07 09:52 Wound Center Nurse 2 14-right 5th toe -Time -Correct Patient -Correct Side, Site, Position -Correct Procedure -Procedure Performed -Type of Procedure -Clinical Debridement -Post Debridement Size (cm) - Length -Post Debridement Size (cm) - Width -Post Debridement Size (cm) - Depth -Total Square Cm -Wound/Ulcer Outcome -Ulcer Cleansing -Foul Odor after Cleansing -Bioengineered Tissue -Bleeding Controlled with -Offloading -Type of Offloading -Treatment Response #13 R 2nd finger -Time 12:08 09:53 -Correct Patient No Yes -Correct Side, Site, Position No Yes -Correct Procedure No Yes -Procedure Performed No Yes -Type of Procedure Debridement -Clinical Debridement Subcutaneous -Post Debridement Size (cm) - Length 0.6 -Post Debridement Size (cm) - Width 2.8 -Post Debridement Size (cm) - Depth 0.2 -Total Square Cm 1.68 -Wound/Ulcer Outcome Not Healed Not Healed -Ulcer Cleansing Rinsed/ Irrigated with Saline -Foul Odor after Cleansing No -Bioengineered Tissue No -Bleeding Controlled with Pressure Pressure -Offloading No -Treatment Response Procedure Tolerated Well 11. L plantar -Time 13:31 12:08 -Correct Patient Yes Yes -Correct Side, Site, Position Yes Yes -Correct Procedure Yes Yes -Procedure Performed Yes Yes -Type of Procedure Debridement Debridement -Clinical Debridement Subcutaneous Subcutaneous -Post Debridement Size (cm) - Length 1.6 1.2 -Post Debridement Size (cm) - Width 1.6 1.3 -Post Debridement Size (cm) - Depth 0.1 0.2 -Total Square Cm 2.56 1.56 -Wound/Ulcer Outcome Not Healed Not Healed -Ulcer Cleansing Rinsed/ Rinsed/ Irrigated with Irrigated with Saline Saline -Foul Odor after Cleansing No No -Bioengineered Tissue Yes No -Type of bioengineered Tissue EPIFIX -Expiration Date 09/16/24 -Product Lot Number [id number] -Percent Used 100 -Saline Lot Number [id number] -Bleeding Controlled with Pressure Pressure -Offloading Yes Yes -Type of Offloading Total Contact Total Contact Cast (TCC) Cast (TCC) -Treatment Response Procedure Procedure Tolerated Well Tolerated Well Pain Scale: 0-10 Numeric Is Patient Pain Free? Yes Yes Yes 01/30/20 02/06/20 12:40 13:12 Wound Center Nurse 2 14-right 5th toe -Time 13:14 -Correct Patient Yes -Correct Side, Site, Position Yes -Correct Procedure Yes -Procedure Performed Yes -Type of Procedure Debridement -Clinical Debridement Subcutaneous -Post Debridement Size (cm) - Length 0.9 -Post Debridement Size (cm) - Width 0.5 -Post Debridement Size (cm) - Depth 0.1 -Total Square Cm 0.45 -Wound/Ulcer Outcome Not Healed -Ulcer Cleansing Rinsed/ Irrigated with Saline -Foul Odor after Cleansing No -Bioengineered Tissue No -Bleeding Controlled with Pressure -Offloading Yes -Type of Offloading Surgical Shoe -Treatment Response Procedure Tolerated Well #13 R 2nd finger -Time -Correct Patient -Correct Side, Site, Position -Correct Procedure -Procedure Performed -Type of Procedure -Clinical Debridement -Post Debridement Size (cm) - Length -Post Debridement Size (cm) - Width -Post Debridement Size (cm) - Depth -Total Square Cm -Wound/Ulcer Outcome -Ulcer Cleansing -Foul Odor after Cleansing -Bioengineered Tissue -Bleeding Controlled with -Offloading -Treatment Response 11. L plantar -Time 12:40 13:13 -Correct Patient Yes Yes -Correct Side, Site, Position Yes Yes -Correct Procedure Yes Yes -Procedure Performed Yes Yes -Type of Procedure Debridement Debridement -Clinical Debridement Subcutaneous Subcutaneous -Post Debridement Size (cm) - Length 0.9 1.0 -Post Debridement Size (cm) - Width 1.2 1.1 -Post Debridement Size (cm) - Depth 0.2 0.2 -Total Square Cm 1.08 1.10 -Wound/Ulcer Outcome Not Healed Not Healed -Ulcer Cleansing Rinsed/ Rinsed/ Irrigated with Irrigated with Saline Saline -Foul Odor after Cleansing No No -Bioengineered Tissue Yes Yes -Type of bioengineered Tissue EPIFIX EPIFIX -Expiration Date 09/16/24 09/16/24 -Product Lot Number [id number] -Percent Used 100 100 -Saline Lot Number [id number] -Bleeding Controlled with Pressure Pressure -Offloading Yes Yes -Type of Offloading Total Contact Total Contact Cast (TCC) Cast (TCC) -Treatment Response Procedure Procedure Tolerated Well Tolerated Well Pain Scale: 0-10 Numeric Is Patient Pain Free? Yes Yes Wound debrided: dorsal fifth toe Laterality: Right Wound Grade/Stage: grade 1 Type of Debridement: Excisional debridement Anesthesia Used: 5% Lidocaine Gel Depth: in the subcutaneous layer Percentage of wound debrided: 100 Instrument Used: #15 blade Tissue Removed: fibrous, devitalized subcutaneous, biofilm, slough Severity: Fat Layer Exposed Amount of bleeding with debridement: Mild Bleeding Controlled with: Pressure Patient tolerated procedure well - Additional Wound Wound debrided: sub metatarsal head Laterality: Left Wound Grade/Stage: gradee 3 Type of Debridement: Excisional debridement Depth: in the subcutaneous layer Percentage of wound debrided: 100 Instrument Used: #15 blade Tissue Removed: fibrous, devitalized subcutaneous, biofilm, slough Severity: Fat Layer Exposed Amount of bleeding with debridement: Mild Bleeding Controlled with: Pressure Patient tolerated procedure: Patient tolerated procedure well Assessment/Plan Active Problems (Last Updated 01/09/20 @ 13:[address] 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 grade 3 treated medically Delayed wound healing (Chronic) Malnutrition (Chronic) Peripheral vascular disease (Chronic) Type 2 diabetes mellitus with diabetic polyneuropathy (Chronic) Skin ulcer of finger with fat layer exposed (Chronic) necrotic ulcer dorsum right long finger at DIP joint Assessment: Left foot ulcer with capsule/muscle tissue exposed, Rousseau grade 3 treated for infection/bacterial colonization. Left foot deformities including tailor bunion and hammertoe. Peripheral vascular disease. Diabetes with polyneuropathy. Malnutrition. Delayed healing. Raynaud's disease. Finger ulcer management by Dr. Bishop Plan: I reviewed and discussed his case today. Subcutaneous excisional debridement was performed as noted in the clinical panel to the left foot and right foot. He has completed oral antibiotics including Augmentin and ciprofloxacin based off of his prior culture results and appears to be doing better. It is noted he is also being treated for a necrotic finger ulcer with Dr. Bishop. He is continuing on an oral antibiotic for this as well at this time. I will confirm if he is approved for additional application of advanced wound product, epi-fix. This is medically necessary for limb salvage. He understands the indications, planned application, anticipated healing time and management. This was applied again today after verbal consent was obtained according standard protocol. This was secured with a wound veil and Steri-Strips. He was advised to keep this clean, dry, intact until follow-up next week. He tolerated this well. This is medically necessary for limb salvage. To continue proper glycemic control nutritional supplementation optimize healing. Is noted his last hemoglobin A1c we have on file here is 5.9%. He was advised to follow-up with his vascular surgeon, Dr. Pena as scheduled. He had recent updated vascular studies performed and Dr. Pena is considering additional intervention. I recommend proceeding if there are options available. Due to the increased depth he did also go through a recent osteomyelitis work-up. Osteomyelitis signs were not apparent on the MRI and this will be monitored very closely. Compliance was discussed. He was reassured there are no local signs of infection on the foot today. I answered his questions. He had prior capsule muscle tissue exposed and that further was infected per his culture results which would qualify and is awaiting grade 3. Hyperbaric oxygen therapy is an option for him and he was advised to continue. He has been doing well. Additionally, a well-padded total contact cast was applied with the lower extremity in a rectus position. Verbal consent was obtained and he tolerated this well. He was advised the this clean, dry, and intact until follow-up next week. He denies being claustrophobic. We also discussed surgical intervention such as fourth metatarsal head resection. He defers today and appears to be doing well with antibiotic, comprehensive wound care, and hyperbaric therapy. Improved offloading was discussed also he is amendable to proceed with a total contact cast. Verbal consent was obtained and this was applied according standard protocol in a neutral position and also well-padded. He tolerated this well. he was advised to keep this clean, dry, and intact until follow-up next week. His new right fifth toe ulcer site is noted and he was advised to keep pressure off the site. A prescription was provided for surgical shoe and he will obtain this at the foot [facility] center. To change dressing daily with Aquacel Ag. He was reassured no signs of infection are noted. To return to the wound healing center in 1 week or call sooner if he has any questions or concerns.
--- NOTE | 2020-02-07 10:57 | PCM.HBO.PN ---
History of Present Illness Date of Service: 02/07/20 Presenting Chief Complaint: Recent frostbite right long finger with nonhealing necrotic ulcer. RICK GEORGE Jr. is a 59 year old currently undergoing hyperbaric oxygen therapy for left plantar Rousseau grade 3 diabetic foot ulcer. Progress: Today represents 24th hyperbaric oxygen treatment of 40 planned treatments. Tolerance of hyperbaric oxygen therapy: Hyperbaric oxygen treatment was provided as per the facility's protocol at 2.0 VINNY and 100% oxygen for 90 minutes. The patient tolerated hyperbaric oxygen well, without complications or complaints. Upon emergence of the hyperbaric chamber the patient's vital signs remained stable. The patient did have barotrauma that occurred to the bilateral TMs after his first HBO treatment and therefore he received bilateral tympanostomy tubes on 12/20/2019. Pre-and post blood glucose levels as documented. Past Medical History Chronic Problems (Last Updated 01/09/20 @ 13:[address] 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 Zhu of [facility] Essential (primary) hypertension (Chronic) Other specified peripheral vascular diseases (Chronic) Skin ulcer of finger with fat layer exposed (Chronic) necrotic ulcer dorsum right long finger at DIP joint 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) Allergies/Adverse Reactions: Allergies atorvastatin Adverse Reaction (Verified 08/23/19 12:36) Unknown metformin Adverse Reaction (Verified 08/23/19 12:36) Diarrhea Home Medications: Ambulatory Orders Medication Instructions Recorded Ammonium Lactate [Amlactin] 57 gm TP PRN PRN 10/04/17 Celecoxib [Celebrex] 200 mg PO DAILY 10/04/17 Cholecalciferol (Vitamin D3) 5,000 unit PO DAILY 10/04/17 [Vitamin D3] Levomefolate/B6/B12/Algal Oil 1 ea PO DAILY 10/04/17 [Metanx Capsule] Nortriptyline HCl 50 mg PO QHS 10/04/17 Biotin 1 mg PO DAILY 04/01/18 Desonide 0.05% [Desowen 0.05% 1 applic TOPICAL BID 04/01/18 Cream] Diflorasone Diacetate [Psorcon] 1 applicatio TP BID PRN 04/01/18 Insulin Glargine,Hum.rec.anlog 20 unit SQ QHS 04/01/18 [Basaglar Kwikpen U-100] Insulin Lispro [Humalog KwikPen] See Protocol SQ TIDCM 04/01/18 Ketoconazole [Nizoral] 1 applic TOPICAL DAILY PRN 04/01/18 Magnesium 250 mg PO DAILY 04/01/18 metoprolol tartrate 25 mg tablet 12.5 mg PO BID tab MDD 1.5 tabs 07/19/18 albuterol sulfate 90 mcg/actuation 2 puff INHALATION Q4H PRN g 08/13/19 aerosol inhaler amlodipine 10 mg tablet 10 mg PO DAILY 08/13/19 becaplermin 0.01 % topical gel 1 applic TOPICAL DAILY 08/13/19 cetirizine 10 mg tablet 10 mg PO DAILY 08/13/19 gabapentin 300 mg capsule 900 mg PO TID cap 08/13/19 nifedipine 30 mg tablet,extended 30 mg PO DAILY 08/13/19 release simvastatin 10 mg tablet 10 mg PO QHS 08/13/19 vardenafil 20 mg tablet 20 mg PO DAILY PRN 08/13/19 Cyanocobalamin [Vitamin B12] 1,000 mcg IM Q30D 08/22/19 aspirin 81 mg tablet,delayed 162 mg PO DAILY tab MDD . 10/12/19 release baclofen 20 mg tablet 30 mg PO TID tab 10/12/19 cephalexin 500 mg capsule 500 mg PO Q6H cap 10/12/19 famotidine 20 mg tablet 20 mg PO DAILY PRN 10/12/19 furosemide 20 mg tablet 20 mg PO BID PRN tab 10/12/19 lisinopril 5 mg tablet 5 mg PO QDAY #30 tab 01/28/20 Maternal Family History: Family History (Last Reviewed 10/18/19 @ 11:24 by Linda Leon) Other Arthritis Hypertension Family History: Diabetes Paternal Family History: Family History (Last Reviewed 10/18/19 @ 11:24 by Linda Leon) Other Arthritis Hypertension Family History: Diabetes Smoking Status: Current every day smoker Physical Exam Vital Signs Temp Pulse Resp BP 96.8 F L 90 18 132/72 H 02/06/20 13:31 02/06/20 13:31 02/06/20 13:31 02/06/20 13:31 General: Alert, Oriented x3, Cooperative, No apparent distress HEENT: Atraumatic, Normocephalic Lungs: Normal air movement Psych/Mental Status: Normal Affect Assessment/Plan Active Problems (Last Updated 01/09/20 @ 13:[address] 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 grade 3 treated medically Delayed wound healing (Chronic) Malnutrition (Chronic) Peripheral vascular disease (Chronic) Type 2 diabetes mellitus with diabetic polyneuropathy (Chronic) Skin ulcer of finger with fat layer exposed (Chronic) necrotic ulcer dorsum right long finger at DIP joint The patient tolerated the Hyperbaric oxygen treatment well, which will be continued as per his medical plan.
[2020-02-07 12:01] VITALS: BP 105/63; BP 123/69; PULSE 73; PULSE 85; RESP 16; RESP 18; TEMP 35.8; TEMP 36.6
[2020-02-07 12:30] LABS: Bedside Glucose 185 mg/dL (70-110)
[2020-02-08 10:30] LABS: Bedside Glucose 314 mg/dL (70-110)
[2020-02-08 10:46] LABS: Bedside Glucose 288 mg/dL (70-110)
[2020-02-08 13:21] LABS: Bedside Glucose 127 mg/dL (70-110)
[2020-02-08 16:04] VITALS: BP 107/90; BP 112/72; PULSE 72; PULSE 79; RESP 16; RESP 18; TEMP 35.8; TEMP 36.7
--- NOTE | 2020-02-08 16:54 | HBO.PN.PCM_ITS ---
History of Present Illness Date of Service: 02/08/20 Presenting Chief Complaint: Left foot ulcer. New irritation to right fifth toe RICK GEORGE Jr. is a 59 year old currently undergoing hyperbaric oxygen therapy for left plantar Rousseau grade 3 diabetic foot ulcer. Progress: Today represents 25th hyperbaric oxygen treatment of 40 planned treatments. Tolerance of hyperbaric oxygen therapy: Hyperbaric oxygen treatment was provided as per the facility's protocol at 2.0 VINNY and 100% oxygen for 90 minutes. The patient tolerated hyperbaric oxygen well, without complications or complaints. Upon emergence of the hyperbaric chamber the patient's vital signs remained stable. The patient did have barotrauma that occurred to the bilateral TMs after his first HBO treatment and therefore he received bilateral tympanostomy tubes on 12/20/2019. Pre-and post blood glucose levels as documented. Past Medical History Chronic Problems (Last Updated 01/09/20 @ 13:[address] 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 Zhu of [facility] Essential (primary) hypertension (Chronic) Other specified peripheral vascular diseases (Chronic) Skin ulcer of finger with fat layer exposed (Chronic) necrotic ulcer dorsum right long finger at DIP joint 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) Allergies/Adverse Reactions: Allergies atorvastatin Adverse Reaction (Verified 08/23/19 12:36) Unknown metformin Adverse Reaction (Verified 08/23/19 12:36) Diarrhea Home Medications: Ambulatory Orders Medication Instructions Recorded Ammonium Lactate [Amlactin] 57 gm TP PRN PRN 10/04/17 Celecoxib [Celebrex] 200 mg PO DAILY 10/04/17 Cholecalciferol (Vitamin D3) 5,000 unit PO DAILY 10/04/17 [Vitamin D3] Levomefolate/B6/B12/Algal Oil 1 ea PO DAILY 10/04/17 [Metanx Capsule] Nortriptyline HCl 50 mg PO QHS 10/04/17 Biotin 1 mg PO DAILY 04/01/18 Desonide 0.05% [Desowen 0.05% 1 applic TOPICAL BID 04/01/18 Cream] Diflorasone Diacetate [Psorcon] 1 applicatio TP BID PRN 04/01/18 Insulin Glargine,Hum.rec.anlog 20 unit SQ QHS 04/01/18 [Basaglar Kwikpen U-100] Insulin Lispro [Humalog KwikPen] See Protocol SQ TIDCM 04/01/18 Ketoconazole [Nizoral] 1 applic TOPICAL DAILY PRN 04/01/18 Magnesium 250 mg PO DAILY 04/01/18 metoprolol tartrate 25 mg tablet 12.5 mg PO BID tab MDD 1.5 tabs 07/19/18 albuterol sulfate 90 mcg/actuation 2 puff INHALATION Q4H PRN g 08/13/19 aerosol inhaler amlodipine 10 mg tablet 10 mg PO DAILY 08/13/19 becaplermin 0.01 % topical gel 1 applic TOPICAL DAILY 08/13/19 cetirizine 10 mg tablet 10 mg PO DAILY 08/13/19 gabapentin 300 mg capsule 900 mg PO TID cap 08/13/19 nifedipine 30 mg tablet,extended 30 mg PO DAILY 08/13/19 release simvastatin 10 mg tablet 10 mg PO QHS 08/13/19 vardenafil 20 mg tablet 20 mg PO DAILY PRN 08/13/19 Cyanocobalamin [Vitamin B12] 1,000 mcg IM Q30D 08/22/19 aspirin 81 mg tablet,delayed 162 mg PO DAILY tab MDD . 10/12/19 release baclofen 20 mg tablet 30 mg PO TID tab 10/12/19 cephalexin 500 mg capsule 500 mg PO Q6H cap 10/12/19 famotidine 20 mg tablet 20 mg PO DAILY PRN 10/12/19 furosemide 20 mg tablet 20 mg PO BID PRN tab 10/12/19 lisinopril 5 mg tablet 5 mg PO QDAY #30 tab 01/28/20 Maternal Family History: Family History (Last Reviewed 10/18/19 @ 11:24 by Linda Leon) Other Arthritis Hypertension Family History: Diabetes Paternal Family History: Family History (Last Reviewed 10/18/19 @ 11:24 by Linda Leon) Other Arthritis Hypertension Family History: Diabetes Smoking Status: Current every day smoker Physical Exam Vital Signs Temp Pulse Resp BP 96.5 F L 79 16 107/90 H 02/08/20 16:04 02/08/20 16:04 02/08/20 16:04 02/08/20 16:04 General: Alert, Oriented x3, Cooperative, No apparent distress Psych/Mental Status: Normal Affect, Appropriate Assessment/Plan Active Problems (Last Updated 01/09/20 @ 13:[address] 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 grade 3 treated medically Delayed wound healing (Chronic) Malnutrition (Chronic) Peripheral vascular disease (Chronic) Type 2 diabetes mellitus with diabetic polyneuropathy (Chronic) Skin ulcer of finger with fat layer exposed (Chronic) necrotic ulcer dorsum right long finger at DIP joint The patient tolerated the Hyperbaric oxygen treatment well, which will be continued as per his medical plan.
[2020-02-11 09:47] VITALS: BP 115/69; PULSE 73; RESP 18; TEMP 36.6; O2SAT 100; BMI 28.7
[2020-02-11 10:46] LABS: Bedside Glucose 172 mg/dL (70-110)
--- NOTE | 2020-02-11 11:44 | PN.PCM_ITS ---
(1) Skin ulcer of finger with fat layer exposed Status: Chronic Current Visit: Yes Code(s): L98.492 - Non-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ulcer of skin of other sites with fat layer exposed Comment: necrotic ulcer dorsum right long finger at DIP joint (2) Raynaud disease Status: Chronic Current Visit: Yes Code(s): I73.00 - Raynaud's syndrome without gangrene (3) History of frostbite Status: Chronic Current Visit: Yes Code(s): Z91.89 - Other specified personal risk factors, not elsewhere classified Comment: left long finger, right index finger, right long finger, and right ring finger (4) Tobacco abuse Status: Chronic Current Visit: Yes Code(s): Z72.0 - Tobacco use (5) Type 2 diabetes mellitus with diabetic polyneuropathy Status: Chronic Current Visit: Yes Code(s): E11.42 - Type 2 diabetes mellitus with diabetic polyneuropathy Type of Wound Date of Service: 02/11/20 Chief Complaint: Recent frostbite right long finger with nonhealing necrotic ulcer. History of Wound: 59-year-old man with a history of diabetes who is presently being seen for a left diabetic foot ulcer has some skin necrosis on the dorsum right long finger at the DIP joint. He sustained frostbite back on October 03, 2019 involving his left long finger, right index finger, right long finger, and right ring finger. He was seen at [facility]. After careful observation to look for areas of demarcation, all the fingers survived with the exception of some skin necrosis on the right long finger. He became concerned recently because of increased pain and drainage from the eschar. Patient is right hand dominant. A wound culture from 01/07/20 was positive for Staphylococcus aureas. He has been placed on Doxycycline for this. Wound care to right long finger is moistened Tegan covered by gauze and using coband to hold in place. Today denies any fevers. Patient states he has a good appetite. Progress of Wound: Mild improvement of right long finger ulcer. - Physical Exam Vital Signs Temp Pulse Resp BP Pulse Ox 97.8 F 73 18 115/69 100 02/11/20 09:47 02/11/20 09:47 02/11/20 09:47 02/11/20 09:47 02/11/20 09:47 General: Alert, Oriented x3, Cooperative HEENT: Atraumatic Oral: Moist Mucosa Lungs: Clear to auscultation, Normal air movement Cardiovascular: Regular rate, Regular Rhythm Extremities: No edema, Capillary Refill Less than 3 Seconds Skin: Ulcer/ Wound - Right long finger dorsal aspect. Wound Measurements and Assessment - Nurse 1 - General Ulcer Measurement Start: 01/16/20 09:39 Freq: Status: Active Protocol: Activity Type Activity Date Activity User E-Sign Co-Sign Detail Recorded Client Recorded Date Recorded By Document 02/11/20 09:47 UT [id number] 02/11/20 09:49 UT 02/11/20 09:47 Wound Center Nurse 1 [Ulcer Assessment] #13 R 2nd finger -Current Size (cm) - Length 0.3 -Current Size (cm) - Width 1.3 -Current Size (cm) - Depth 0.2 -Total Square Cm 0.39 -Exudate Amt Small -Exudate Type Serosanguineous -Wound Margin Thickened & Rolled Under -Granulation Amt Medium (34-66%) -Granulation Quality Pale,[place] -Necrosis Amt Medium (34-66%) -Necrotic Tissue Type Adherent Slough -Texture ([place]-wound Skin Appearance) Assessed -Moisture ([place]-wound Skin Appearance Assessed, ) Maceration -Color ([place]-wound Skin Appearance) Assessed -Temperature ([place]-wound Skin No Abnormality Appearance) (Pt Warm) -Tenderness on Palpation ([place]-wound No Skin Appearance) -Ulcer Cleansing Rinsed/ Irrigated with Saline -Foul Odor after Cleansing No -Anesthetic Used 5% Lidocaine Gel [Edema Assessment] -Lower Limb Edema Present NA - Nurse 2 - General Ulcer CM Notes Start: 01/16/20 09:39 Freq: Status: Active Protocol: Activity Type Activity Date Activity User E-Sign Co-Sign Detail Recorded Client Recorded Date Recorded By Document 02/11/20 10:25 [id number] 02/11/20 10:27 02/11/20 10:25 Wound Center Nurse 2 [Procedure/Treatment] 14-right 5th toe -Time 10:26 -Correct Patient No -Correct Side, Site, Position No -Correct Procedure No -Procedure Performed No -Foul Odor after Cleansing No #13 R 2nd finger -Time 10:27 -Correct Patient Yes -Correct Side, Site, Position Yes -Correct Procedure Yes -Procedure Performed Yes -Type of Procedure Debridement -Clinical Debridement Subcutaneous -Post Debridement Size (cm) - Length 0.6 -Post Debridement Size (cm) - Width 1.2 -Post Debridement Size (cm) - Depth 0.2 -Total Square Cm 0.72 -Wound/Ulcer Outcome Not Healed -Ulcer Cleansing Rinsed/ Irrigated with Saline -Foul Odor after Cleansing No -Bioengineered Tissue No -Bleeding Controlled with Pressure -Offloading No -Treatment Response Procedure Tolerated Well [See Physician Procedure note for Specifics] Pain Scale: 0-10 Numeric [Pain] -Is Patient Pain Free? Yes Musculoskeletal: No Tenderness to Palpation of Joints or Extremities Neurological: Neuro grossly intact Psych/Mental Status: Normal Affect, Appropriate Debridement Note Post-Debridement Measurements/Treatment WC - Nurse 2 - General Ulcer CM Notes Start: 01/16/20 09:39 Freq: Status: Active Protocol: Activity Type Activity Date Activity User E-Sign Co-Sign Detail Recorded Client Recorded Date Recorded By Document 01/16/20 13:31 [id number] 01/16/20 13:32 Document 01/23/20 12:07 [id number] 01/23/20 12:09 Document 01/28/20 09:52 [id number] 01/28/20 10:00 Document 01/30/20 12:40 [id number] 01/30/20 12:55 Document 02/06/20 13:12 [id number] 02/06/20 13:15 Document 02/11/20 10:25 [id number] 02/11/20 10:27 01/16/20 01/23/20 01/28/20 13:31 12:07 09:52 Wound Center Nurse 2 14-right 5th toe -Time -Correct Patient -Correct Side, Site, Position -Correct Procedure -Procedure Performed -Type of Procedure -Clinical Debridement -Post Debridement Size (cm) - Length -Post Debridement Size (cm) - Width -Post Debridement Size (cm) - Depth -Total Square Cm -Wound/Ulcer Outcome -Ulcer Cleansing -Foul Odor after Cleansing -Bioengineered Tissue -Bleeding Controlled with -Offloading -Type of Offloading -Treatment Response #13 R 2nd finger -Time 12:08 09:53 -Correct Patient No Yes -Correct Side, Site, Position No Yes -Correct Procedure No Yes -Procedure Performed No Yes -Type of Procedure Debridement -Clinical Debridement Subcutaneous -Post Debridement Size (cm) - Length 0.6 -Post Debridement Size (cm) - Width 2.8 -Post Debridement Size (cm) - Depth 0.2 -Total Square Cm 1.68 -Wound/Ulcer Outcome Not Healed Not Healed -Ulcer Cleansing Rinsed/ Irrigated with Saline -Foul Odor after Cleansing No -Bioengineered Tissue No -Bleeding Controlled with Pressure Pressure -Offloading No -Treatment Response Procedure Tolerated Well 11. L plantar -Time 13:31 12:08 -Correct Patient Yes Yes -Correct Side, Site, Position Yes Yes -Correct Procedure Yes Yes -Procedure Performed Yes Yes -Type of Procedure Debridement Debridement -Clinical Debridement Subcutaneous Subcutaneous -Post Debridement Size (cm) - Length 1.6 1.2 -Post Debridement Size (cm) - Width 1.6 1.3 -Post Debridement Size (cm) - Depth 0.1 0.2 -Total Square Cm 2.56 1.56 -Wound/Ulcer Outcome Not Healed Not Healed -Ulcer Cleansing Rinsed/ Rinsed/ Irrigated with Irrigated with Saline Saline -Foul Odor after Cleansing No No -Bioengineered Tissue Yes No -Type of bioengineered Tissue EPIFIX -Expiration Date 09/16/24 -Product Lot Number [id number] -Percent Used 100 -Saline Lot Number [id number] -Bleeding Controlled with Pressure Pressure -Offloading Yes Yes -Type of Offloading Total Contact Total Contact Cast (TCC) Cast (TCC) -Treatment Response Procedure Procedure Tolerated Well Tolerated Well Pain Scale: 0-10 Numeric Is Patient Pain Free? Yes Yes Yes 01/30/20 02/06/20 02/11/20 12:40 13:12 10:25 Wound Center Nurse 2 14-right 5th toe -Time 13:14 10:26 -Correct Patient Yes No -Correct Side, Site, Position Yes No -Correct Procedure Yes No -Procedure Performed Yes No -Type of Procedure Debridement -Clinical Debridement Subcutaneous -Post Debridement Size (cm) - Length 0.9 -Post Debridement Size (cm) - Width 0.5 -Post Debridement Size (cm) - Depth 0.1 -Total Square Cm 0.45 -Wound/Ulcer Outcome Not Healed -Ulcer Cleansing Rinsed/ Irrigated with Saline -Foul Odor after Cleansing No No -Bioengineered Tissue No -Bleeding Controlled with Pressure -Offloading Yes -Type of Offloading Surgical Shoe -Treatment Response Procedure Tolerated Well #13 R 2nd finger -Time 10:27 -Correct Patient Yes -Correct Side, Site, Position Yes -Correct Procedure Yes -Procedure Performed Yes -Type of Procedure Debridement -Clinical Debridement Subcutaneous -Post Debridement Size (cm) - Length 0.6 -Post Debridement Size (cm) - Width 1.2 -Post Debridement Size (cm) - Depth 0.2 -Total Square Cm 0.72 -Wound/Ulcer Outcome Not Healed -Ulcer Cleansing Rinsed/ Irrigated with Saline -Foul Odor after Cleansing No -Bioengineered Tissue No -Bleeding Controlled with Pressure -Offloading No -Treatment Response Procedure Tolerated Well 11. L plantar -Time 12:40 13:13 -Correct Patient Yes Yes -Correct Side, Site, Position Yes Yes -Correct Procedure Yes Yes -Procedure Performed Yes Yes -Type of Procedure Debridement Debridement -Clinical Debridement Subcutaneous Subcutaneous -Post Debridement Size (cm) - Length 0.9 1.0 -Post Debridement Size (cm) - Width 1.2 1.1 -Post Debridement Size (cm) - Depth 0.2 0.2 -Total Square Cm 1.08 1.10 -Wound/Ulcer Outcome Not Healed Not Healed -Ulcer Cleansing Rinsed/ Rinsed/ Irrigated with Irrigated with Saline Saline -Foul Odor after Cleansing No No -Bioengineered Tissue Yes Yes -Type of bioengineered Tissue EPIFIX EPIFIX -Expiration Date 09/16/24 09/16/24 -Product Lot Number [id number] -Percent Used 100 100 -Saline Lot Number [id number] -Bleeding Controlled with Pressure Pressure -Offloading Yes Yes -Type of Offloading Total Contact Total Contact Cast (TCC) Cast (TCC) -Treatment Response Procedure Procedure Tolerated Well Tolerated Well Pain Scale: 0-10 Numeric Is Patient Pain Free? Yes Yes Yes Wound debrided: dorsal long finger ulcer Laterality: Right Type of Debridement: Excisional debridement Anesthesia Used: 4% Lidocaine Solution Depth: Down to and including healthy tissue, in the subcutaneous layer Percentage of wound debrided: 100 Instrument Used: 3mm curette Tissue Removed: Subcutaneous tissue and slough Severity: Limited To Skin Breakdown Amount of bleeding with debridement: Mild Bleeding Controlled with: Pressure Patient tolerated procedure well Assessment/Plan Active Problems (Last Updated 01/09/20 @ 13:[address] 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 grade 3 treated medically Delayed wound healing (Chronic) Malnutrition (Chronic) Peripheral vascular disease (Chronic) Type 2 diabetes mellitus with diabetic polyneuropathy (Chronic) Skin ulcer of finger with fat layer exposed (Chronic) necrotic ulcer dorsum right long finger at DIP joint Assessment: 1. Nonhealing necrotic ulcer dorsum right long finger at DIP joint. 2. Diabetes mellitus. 3. History of recent frostbite. 4. Raynaud's disease. 5. Peripheral vascular disease. 6. Smoker. Plan: Continue Tegan dressing changes daily. X-ray from 01/28/20 showed Vascular calcification. 3 tiny bony densities overlying the distal interphalangeal joint of the third digit along the dorsal aspect. There was no evidence of osteomyelitis. If those bony densities cause pain in the future, they may need to be excised. Will monitor. Encourage range of motion exercises to minimize stiffness. A wound culture from 01/07/20 was positive for Staphylococcus aureas. He was placed on Doxycycline for this. His HgbA1c from 08/23/19 was 6.1. His last Prealbumin from 03/04/17 was 24.1. Encourage nutritional supplementation with protein to help the healing process. He is currently getting HBO for a left diabetic foot ulcer which should help to heal his right long finger wound. If healing is delayed, he would need operative debridement with skin flap or skin graft reconstruction. With his history of Raynaud's and peripheral vascular disease and smoking, he is at increased risk of developing wound healing problems and possible osteomyelitis that would lead to an eventual amputation. He voices understanding. He's also at risk for amputation because he gets chemicals on his finger through his cotton gloves at work. He states he doesn't have time to wash his hands often while at work. Encouraged the patient to stop smoking as it may have deleterious effects on wound healing. Followup one week. [id number]: [id number] Lelia subq tissue 20 sq cm/<
--- NOTE | 2020-02-11 11:44 | PCM.HBO.PN ---
History of Present Illness Date of Service: 02/11/20 Presenting Chief Complaint: Left foot ulcer. New irritation to right fifth toe RICK GEORGE Jr. is a 59 year old currently undergoing hyperbaric oxygen therapy for left plantar Rousseau grade 3 diabetic foot ulcer. Progress: Today represents 26th hyperbaric oxygen treatment of 40 planned treatments. Tolerance of hyperbaric oxygen therapy: Hyperbaric oxygen treatment was provided as per the facility's protocol at 2.0 VINNY and 100% oxygen for 90 minutes. The patient tolerated hyperbaric oxygen well, without complications or complaints. Upon emergence of the hyperbaric chamber the patient's vital signs remained stable. The patient did have barotrauma that occurred to the bilateral TMs after his first HBO treatment and therefore he received bilateral tympanostomy tubes on 12/20/2019. Pre-and post blood glucose levels as documented. Past Medical History Chronic Problems (Last Updated 01/09/20 @ 13:[address] 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) Allergies/Adverse Reactions: Allergies atorvastatin Adverse Reaction (Verified 08/23/19 12:36) Unknown metformin Adverse Reaction (Verified 08/23/19 12:36) Diarrhea Home Medications: Ambulatory Orders Medication Instructions Recorded Ammonium Lactate [Amlactin] 57 gm TP PRN PRN 10/04/17 Celecoxib [Celebrex] 200 mg PO DAILY 10/04/17 Cholecalciferol (Vitamin D3) 5,000 unit PO DAILY 10/04/17 [Vitamin D3] Levomefolate/B6/B12/Algal Oil 1 ea PO DAILY 10/04/17 [Metanx Capsule] Nortriptyline HCl 50 mg PO QHS 10/04/17 Biotin 1 mg PO DAILY 04/01/18 Desonide 0.05% [Desowen 0.05% 1 applic TOPICAL BID 04/01/18 Cream] Diflorasone Diacetate [Psorcon] 1 applicatio TP BID PRN 04/01/18 Insulin Glargine,Hum.rec.anlog 20 unit SQ QHS 04/01/18 [Basaglar Kwikpen U-100] Insulin Lispro [Humalog KwikPen] See Protocol SQ TIDCM 04/01/18 Ketoconazole [Nizoral] 1 applic TOPICAL DAILY PRN 04/01/18 Magnesium 250 mg PO DAILY 04/01/18 metoprolol tartrate 25 mg tablet 12.5 mg PO BID tab MDD 1.5 tabs 07/19/18 albuterol sulfate 90 mcg/actuation 2 puff INHALATION Q4H PRN g 08/13/19 aerosol inhaler amlodipine 10 mg tablet 10 mg PO DAILY 08/13/19 becaplermin 0.01 % topical gel 1 applic TOPICAL DAILY 08/13/19 cetirizine 10 mg tablet 10 mg PO DAILY 08/13/19 gabapentin 300 mg capsule 900 mg PO TID cap 08/13/19 nifedipine 30 mg tablet,extended 30 mg PO DAILY 08/13/19 release simvastatin 10 mg tablet 10 mg PO QHS 08/13/19 vardenafil 20 mg tablet 20 mg PO DAILY PRN 08/13/19 Cyanocobalamin [Vitamin B12] 1,000 mcg IM Q30D 08/22/19 aspirin 81 mg tablet,delayed 162 mg PO DAILY tab MDD . 10/12/19 release baclofen 20 mg tablet 30 mg PO TID tab 10/12/19 cephalexin 500 mg capsule 500 mg PO Q6H cap 10/12/19 famotidine 20 mg tablet 20 mg PO DAILY PRN 10/12/19 furosemide 20 mg tablet 20 mg PO BID PRN tab 10/12/19 lisinopril 5 mg tablet 5 mg PO QDAY #30 tab 01/28/20 Maternal Family History: Family History (Last Reviewed 10/18/19 @ 11:24 by Linda Leon) Other Arthritis Hypertension Family History: Diabetes Paternal Family History: Family History (Last Reviewed 10/18/19 @ 11:24 by Linda Leon) Other Arthritis Hypertension Family History: Diabetes Smoking Status: Current every day smoker Physical Exam Vital Signs Temp Pulse Resp BP Pulse Ox 97.8 F 73 18 115/69 100 02/11/20 09:47 02/11/20 09:47 02/11/20 09:47 02/11/20 09:47 02/11/20 09:47 General: Alert, Oriented x3, Cooperative HEENT: Atraumatic, TM's Clear - Bilateral tympanostomy tubes in place. Clear drainage from the right ear. There is scant amount of blood around the opening of the left ear tube. Lungs: Clear to auscultation, Normal air movement Cardiovascular: Regular rate, Regular Rhythm Psych/Mental Status: Normal Affect, Appropriate Assessment/Plan Active Problems (Last Updated 01/09/20 @ 13:[address] 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 grade 3 treated medically Delayed wound healing (Chronic) Malnutrition (Chronic) Peripheral vascular disease (Chronic) Type 2 diabetes mellitus with diabetic polyneuropathy (Chronic) Skin ulcer of finger with fat layer exposed (Chronic) necrotic ulcer dorsum right long finger at DIP joint The patient tolerated the Hyperbaric oxygen treatment well, which will be continued as per his medical plan. [id number]
[2020-02-11 12:50] LABS: Bedside Glucose 151 mg/dL (70-110)
[2020-02-11 15:33] VITALS: BP 102/66; BP 125/68; PULSE 67; PULSE 77; RESP 18; TEMP 36.2; TEMP 36.8
[2020-02-12 10:46] LABS: Bedside Glucose 172 mg/dL (70-110)
[2020-02-12 10:55] VITALS: BP 102/62; BP 115/67; PULSE 67; PULSE 77; RESP 18; RESP 20; TEMP 36.1; TEMP 36.2
--- NOTE | 2020-02-12 11:14 | HBO.PN.PCM_ITS ---
History of Present Illness Date of Service: 02/12/20 Presenting Chief Complaint: Recent frostbite right long finger with nonhealing necrotic ulcer. RICK GEORGE Jr. is a 59 year old currently undergoing hyperbaric oxygen therapy for left plantar Rousseau grade 3 diabetic foot ulcer. Progress: Today represents 27th hyperbaric oxygen treatment of 40 planned treatments. Tolerance of hyperbaric oxygen therapy: Hyperbaric oxygen treatment was provided as per the facility's protocol at 2.0 VINNY and 100% oxygen for 90 minutes. The patient tolerated hyperbaric oxygen well, without complications or complaints. Upon emergence of the hyperbaric chamber the patient's vital signs remained stable. The patient did have barotrauma that occurred to the bilateral TMs after his first HBO treatment and therefore he received bilateral tympanostomy tubes on 12/20/2019. Pre-and post blood glucose levels as documented. Past Medical History Chronic Problems (Last Updated 01/09/20 @ 13:[address] 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 Zhu of [facility] Essential (primary) hypertension (Chronic) Other specified peripheral vascular diseases (Chronic) Skin ulcer of finger with fat layer exposed (Chronic) necrotic ulcer dorsum right long finger at DIP joint 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) Allergies/Adverse Reactions: Allergies atorvastatin Adverse Reaction (Verified 08/23/19 12:36) Unknown metformin Adverse Reaction (Verified 08/23/19 12:36) Diarrhea Home Medications: Ambulatory Orders Medication Instructions Recorded Ammonium Lactate [Amlactin] 57 gm TP PRN PRN 10/04/17 Celecoxib [Celebrex] 200 mg PO DAILY 10/04/17 Cholecalciferol (Vitamin D3) 5,000 unit PO DAILY 10/04/17 [Vitamin D3] Levomefolate/B6/B12/Algal Oil 1 ea PO DAILY 10/04/17 [Metanx Capsule] Nortriptyline HCl 50 mg PO QHS 10/04/17 Biotin 1 mg PO DAILY 04/01/18 Desonide 0.05% [Desowen 0.05% 1 applic TOPICAL BID 04/01/18 Cream] Diflorasone Diacetate [Psorcon] 1 applicatio TP BID PRN 04/01/18 Insulin Glargine,Hum.rec.anlog 20 unit SQ QHS 04/01/18 [Basaglar Kwikpen U-100] Insulin Lispro [Humalog KwikPen] See Protocol SQ TIDCM 04/01/18 Ketoconazole [Nizoral] 1 applic TOPICAL DAILY PRN 04/01/18 Magnesium 250 mg PO DAILY 04/01/18 metoprolol tartrate 25 mg tablet 12.5 mg PO BID tab MDD 1.5 tabs 07/19/18 albuterol sulfate 90 mcg/actuation 2 puff INHALATION Q4H PRN g 08/13/19 aerosol inhaler amlodipine 10 mg tablet 10 mg PO DAILY 08/13/19 becaplermin 0.01 % topical gel 1 applic TOPICAL DAILY 08/13/19 cetirizine 10 mg tablet 10 mg PO DAILY 08/13/19 gabapentin 300 mg capsule 900 mg PO TID cap 08/13/19 nifedipine 30 mg tablet,extended 30 mg PO DAILY 08/13/19 release simvastatin 10 mg tablet 10 mg PO QHS 08/13/19 vardenafil 20 mg tablet 20 mg PO DAILY PRN 08/13/19 Cyanocobalamin [Vitamin B12] 1,000 mcg IM Q30D 08/22/19 aspirin 81 mg tablet,delayed 162 mg PO DAILY tab MDD . 10/12/19 release baclofen 20 mg tablet 30 mg PO TID tab 10/12/19 cephalexin 500 mg capsule 500 mg PO Q6H cap 10/12/19 famotidine 20 mg tablet 20 mg PO DAILY PRN 10/12/19 furosemide 20 mg tablet 20 mg PO BID PRN tab 10/12/19 lisinopril 5 mg tablet 5 mg PO QDAY #30 tab 01/28/20 Maternal Family History: Family History (Last Reviewed 10/18/19 @ 11:24 by Linda Leon) Other Arthritis Hypertension Family History: Diabetes Paternal Family History: Family History (Last Reviewed 10/18/19 @ 11:24 by Linda Leon) Other Arthritis Hypertension Family History: Diabetes Smoking Status: Current every day smoker Physical Exam Vital Signs Temp Pulse Resp BP Pulse Ox 97.1 F L 77 18 125/68 H 100 02/11/20 15:33 02/11/20 15:33 02/11/20 15:33 02/11/20 15:33 02/11/20 09:47 General: Alert, Oriented x3, Cooperative, No apparent distress HEENT: Atraumatic, TM's Clear Lungs: Clear to auscultation, Normal air movement Cardiovascular: Regular rate, Regular Rhythm Psych/Mental Status: Normal Affect, Appropriate, Alert and oriented to time, place, person, mood and affect Assessment/Plan Active Problems (Last Updated 01/09/20 @ 13:[address] 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 grade 3 treated medically Delayed wound healing (Chronic) Malnutrition (Chronic) Peripheral vascular disease (Chronic) Type 2 diabetes mellitus with diabetic polyneuropathy (Chronic) Skin ulcer of finger with fat layer exposed (Chronic) necrotic ulcer dorsum right long finger at DIP joint The patient tolerated the Hyperbaric oxygen treatment well, which will be continued as per his medical plan.
[2020-02-12 13:06] LABS: Bedside Glucose 137 mg/dL (70-110)
[2020-02-13 10:45] LABS: Bedside Glucose 245 mg/dL (70-110)
--- NOTE | 2020-02-13 11:53 | HBO.PN.PCM_ITS ---
History of Present Illness Date of Service: 02/13/20 Presenting Chief Complaint: Recent frostbite right long finger with nonhealing necrotic ulcer. RICK GEORGE Jr. is a 59 year old currently undergoing hyperbaric oxygen therapy for left plantar Rousseau grade 3 diabetic foot ulcer. Progress: Today represents 28th hyperbaric oxygen treatment of 40 planned treatments. Tolerance of hyperbaric oxygen therapy: Hyperbaric oxygen treatment was provided as per the facility's protocol at 2.0 VINNY and 100% oxygen for 90 minutes. The patient tolerated hyperbaric oxygen well, without complications or complaints. Upon emergence of the hyperbaric chamber the patient's vital signs remained stable. The patient did have barotrauma that occurred to the bilateral TMs after his first HBO treatment and therefore he received bilateral tympanostomy tubes on 12/20/2019. Pre-and post blood glucose levels as documented. Past Medical History Chronic Problems (Last Updated 01/09/20 @ 13:[address] 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 Zhu of [facility] Essential (primary) hypertension (Chronic) Other specified peripheral vascular diseases (Chronic) Skin ulcer of finger with fat layer exposed (Chronic) necrotic ulcer dorsum right long finger at DIP joint 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) Allergies/Adverse Reactions: Allergies atorvastatin Adverse Reaction (Verified 08/23/19 12:36) Unknown metformin Adverse Reaction (Verified 08/23/19 12:36) Diarrhea Home Medications: Ambulatory Orders Medication Instructions Recorded Ammonium Lactate [Amlactin] 57 gm TP PRN PRN 10/04/17 Celecoxib [Celebrex] 200 mg PO DAILY 10/04/17 Cholecalciferol (Vitamin D3) 5,000 unit PO DAILY 10/04/17 [Vitamin D3] Levomefolate/B6/B12/Algal Oil 1 ea PO DAILY 10/04/17 [Metanx Capsule] Nortriptyline HCl 50 mg PO QHS 10/04/17 Biotin 1 mg PO DAILY 04/01/18 Desonide 0.05% [Desowen 0.05% 1 applic TOPICAL BID 04/01/18 Cream] Diflorasone Diacetate [Psorcon] 1 applicatio TP BID PRN 04/01/18 Insulin Glargine,Hum.rec.anlog 20 unit SQ QHS 04/01/18 [Basaglar Kwikpen U-100] Insulin Lispro [Humalog KwikPen] See Protocol SQ TIDCM 04/01/18 Ketoconazole [Nizoral] 1 applic TOPICAL DAILY PRN 04/01/18 Magnesium 250 mg PO DAILY 04/01/18 metoprolol tartrate 25 mg tablet 12.5 mg PO BID tab MDD 1.5 tabs 07/19/18 albuterol sulfate 90 mcg/actuation 2 puff INHALATION Q4H PRN g 08/13/19 aerosol inhaler amlodipine 10 mg tablet 10 mg PO DAILY 08/13/19 becaplermin 0.01 % topical gel 1 applic TOPICAL DAILY 08/13/19 cetirizine 10 mg tablet 10 mg PO DAILY 08/13/19 gabapentin 300 mg capsule 900 mg PO TID cap 08/13/19 nifedipine 30 mg tablet,extended 30 mg PO DAILY 08/13/19 release simvastatin 10 mg tablet 10 mg PO QHS 08/13/19 vardenafil 20 mg tablet 20 mg PO DAILY PRN 08/13/19 Cyanocobalamin [Vitamin B12] 1,000 mcg IM Q30D 08/22/19 aspirin 81 mg tablet,delayed 162 mg PO DAILY tab MDD . 10/12/19 release baclofen 20 mg tablet 30 mg PO TID tab 10/12/19 cephalexin 500 mg capsule 500 mg PO Q6H cap 10/12/19 famotidine 20 mg tablet 20 mg PO DAILY PRN 10/12/19 furosemide 20 mg tablet 20 mg PO BID PRN tab 10/12/19 lisinopril 5 mg tablet 5 mg PO QDAY #30 tab 01/28/20 Maternal Family History: Family History (Last Reviewed 10/18/19 @ 11:24 by Linda Leon) Other Arthritis Hypertension Family History: Diabetes Paternal Family History: Family History (Last Reviewed 10/18/19 @ 11:24 by Linda Leon) Other Arthritis Hypertension Family History: Diabetes Smoking Status: Current every day smoker Physical Exam Vital Signs Temp Pulse Resp BP Pulse Ox 97.2 F L 77 20 H 115/67 100 02/12/20 10:55 02/12/20 10:55 02/12/20 10:55 02/12/20 10:55 02/11/20 09:47 Assessment/Plan Active Problems (Last Updated 01/09/20 @ 13:[address] 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 grade 3 treated medically Delayed wound healing (Chronic) Malnutrition (Chronic) Peripheral vascular disease (Chronic) Type 2 diabetes mellitus with diabetic polyneuropathy (Chronic) Skin ulcer of finger with fat layer exposed (Chronic) necrotic ulcer dorsum right long finger at DIP joint The patient tolerated the Hyperbaric oxygen treatment well, which will be continued as per his medical plan.
[2020-02-13 12:46] LABS: Bedside Glucose 263 mg/dL (70-110)
[2020-02-13 13:23] VITALS: BP 118/61; PULSE 78; RESP 18; TEMP 36.8; BMI 28.7
--- NOTE | 2020-02-13 13:41 | PCM.WC.PN ---
(1) Non-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ulcer of other part of right foot with fat layer exposed Status: Chronic Code(s): L97.512 - Non-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ulcer of other part of right foot with fat layer exposed (2) Chronic ulcer of left foot with necrosis of muscle Status: Chronic Code(s): L97.523 - Non-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ulcer of other part of left foot with necrosis of muscle Comment: capsular layer is in the wound bed. grade 3 treated medically (3) Delayed wound healing Status: Chronic Code(s): T14.8XXD - Other injury of unspecified body region, subsequent encounter (4) Malnutrition Status: Chronic Code(s): E46 - Unspecified protein-calorie malnutrition (5) Peripheral vascular disease Status: Chronic Code(s): I73.9 - Peripheral vascular disease, unspecified (6) Type 2 diabetes mellitus with diabetic polyneuropathy Status: Chronic Code(s): E11.42 - Type 2 diabetes mellitus with diabetic polyneuropathy (7) Hammertoe of right foot Status: Chronic Code(s): M20.41 - Other hammer toe(s) (acquired), right foot Type of Wound Date of Service: 02/13/20 Chief Complaint: Right and left foot ulcers History of Wound: This 59-year-old male presents for follow-up of chronic left and right foot ulcer sites. He continues to undergo hyperbaric oxygen therapy due to the grade 3 status of the left foot. He has tolerated this well. He denies fever, chill, nausea, vomiting, odor or redness. He also kept his total contact cast to left foot intact. He also follows up today for his more recent right fifth toe ulcer site. He is also been performing daily dressing changes with his right foot ulcer and obtained a surgical shoe. Progress of Wound: Improving - Physical Exam Vital Signs Temp Pulse Resp BP Pulse Ox 98.2 F 78 18 118/61 100 02/13/20 13:23 02/13/20 13:23 02/13/20 13:23 02/13/20 13:23 02/11/20 09:47 General: Alert, Oriented x3, Cooperative, No apparent distress HEENT: Atraumatic Extremities: No cyanosis, Capillary Refill Less than 3 Seconds, No Calf Tenderness, Diminished Peripheral Pulses, Edema Skin: Ulcer/ Wound - Purulence, erythema, streaking, odor, infection. No deep tissue exposure). Peripheral epithelialization is continued on the left Wound Measurements and Assessment WC - Nurse 1 - General Ulcer Measurement Start: 01/16/20 09:39 Freq: Status: Active Protocol: Activity Type Activity Date Activity User E-Sign Co-Sign Detail Recorded Client Recorded Date Recorded By Document 02/11/20 09:47 MT [id number] 02/11/20 09:49 MT Document 02/13/20 13:23 RB [id number] 02/13/20 13:26 RB 02/11/20 02/13/20 09:47 13:23 Wound Center Nurse 1 [Ulcer Assessment] 14-right 5th toe -Combined with other wound No -Current Size (cm) - Length 0.6 -Current Size (cm) - Width 0.5 -Current Size (cm) - Depth 0.1 -Total Square Cm 0.30 -Tunneling No -Undermining/Tunneling No -Circular Undermining No -Exudate Amt Small -Exudate Type Serosanguineous -Wound Margin Thickened -Granulation Amt Medium (34-66%) -Granulation Quality [place] -Slough/Fibrin Yes -Necrosis Amt Small (1-33%) -Necrotic Tissue Type Adherent Slough -Structure Exposed N/A -Texture (Mechelle-wound Skin Appearance) Assessed,Callus -Moisture ([place]helle-wound Skin Appearance Assessed ) -Color ([place]helle-wound Skin Appearance) Assessed -Temperature ([place]le-wound Skin No Abnormality Appearance) (Pt Warm) -Tenderness on Palpation ([place]helle-wound No Skin Appearance) -Ulcer Cleansing Wound Cleanser -Foul Odor after Cleansing No -Anesthetic Used 4% Lidocaine Solution #13 R 2nd finger -Current Size (cm) - Length 0.3 -Current Size (cm) - Width 1.3 -Current Size (cm) - Depth 0.2 -Total Square Cm 0.39 -Exudate Amt Small -Exudate Type Serosanguineous -Wound Margin Thickened & Rolled Under -Granulation Amt Medium (34-66%) -Granulation Quality Pale,[place] -Necrosis Amt Medium (34-66%) -Necrotic Tissue Type Adherent Slough -Texture (Mechelle-wound Skin Appearance) Assessed -Moisture (Mechelle-wound Skin Appearance Assessed, ) Maceration -Color ([place]helle-wound Skin Appearance) Assessed -Temperature ([place]le-wound Skin No Abnormality Appearance) (Pt Warm) -Tenderness on Palpation ([place]le-wound No Skin Appearance) -Ulcer Cleansing Rinsed/ Irrigated with Saline -Foul Odor after Cleansing No -Anesthetic Used 5% Lidocaine Gel 11. L plantar -Combined with other wound No -Current Size (cm) - Length 0.9 -Current Size (cm) - Width 0.6 -Current Size (cm) - Depth 0.1 -Total Square Cm 0.54 -Tunneling No -Undermining/Tunneling No -Circular Undermining No -Exudate Amt Medium -Exudate Type Serosanguineous -Wound Margin Thickened -Granulation Amt Medium (34-66%) -Granulation Quality [place] -Slough/Fibrin Yes -Necrosis Amt Small (1-33%) -Necrotic Tissue Type Adherent Slough -Structure Exposed N/A -Texture (Mechelle-wound Skin Appearance) Assessed,Callus -Moisture ([place]helle-wound Skin Appearance Assessed ) -Color ([place]helle-wound Skin Appearance) Assessed -Temperature ([place]helle-wound Skin No Abnormality Appearance) (Pt Warm) -Tenderness on Palpation (Mechelle-wound No Skin Appearance) -Ulcer Cleansing Wound Cleanser -Foul Odor after Cleansing No -Anesthetic Used 4% Lidocaine Solution [Edema Assessment] -Lower Limb Edema Present NA WC - Nurse 2 - General Ulcer CM Notes Start: 01/16/20 09:39 Freq: Status: Active Protocol: Activity Type Activity Date Activity User E-Sign Co-Sign Detail Recorded Client Recorded Date Recorded By Document 02/11/20 10:25 [id number] 02/11/20 10:27 Document 02/13/20 13:37 [id number] 02/13/20 13:40 02/11/20 02/13/20 10:25 13:37 Wound Center Nurse 2 [Procedure/Treatment] 14-right 5th toe -Time 10:26 13:37 -Correct Patient No Yes -Correct Side, Site, Position No Yes -Correct Procedure No Yes -Procedure Performed No Yes -Type of Procedure Debridement -Clinical Debridement Subcutaneous -Post Debridement Size (cm) - Length 0.6 -Post Debridement Size (cm) - Width 0.6 -Post Debridement Size (cm) - Depth 0.1 -Total Square Cm 0.36 -Wound/Ulcer Outcome Not Healed -Ulcer Cleansing Rinsed/ Irrigated with Saline -Foul Odor after Cleansing No No -Bioengineered Tissue Yes -Type of bioengineered Tissue EPIFIX -Expiration Date 09/16/24 -Product Lot Number [id number] -Percent Used 100 -Saline Lot Number [id number] -Bleeding Controlled with Pressure -Offloading Yes -Type of Offloading Surgical Shoe -Treatment Response Procedure Tolerated Well #13 R 2nd finger -Time 10:27 13:38 -Correct Patient Yes -Correct Side, Site, Position Yes -Correct Procedure Yes -Procedure Performed Yes -Type of Procedure Debridement -Clinical Debridement Subcutaneous -Post Debridement Size (cm) - Length 0.6 -Post Debridement Size (cm) - Width 1.2 -Post Debridement Size (cm) - Depth 0.2 -Total Square Cm 0.72 -Wound/Ulcer Outcome Not Healed -Ulcer Cleansing Rinsed/ Irrigated with Saline -Foul Odor after Cleansing No -Bioengineered Tissue No -Bleeding Controlled with Pressure -Offloading No -Treatment Response Procedure Tolerated Well 11. L plantar -Time 13:38 -Correct Patient Yes -Correct Side, Site, Position Yes -Correct Procedure Yes -Procedure Performed Yes -Type of Procedure Debridement -Clinical Debridement Subcutaneous -Post Debridement Size (cm) - Length 1 -Post Debridement Size (cm) - Width 0.6 -Post Debridement Size (cm) - Depth 0.1 -Total Square Cm 0.6 -Wound/Ulcer Outcome Not Healed -Ulcer Cleansing Rinsed/ Irrigated with Saline -Foul Odor after Cleansing No -Bioengineered Tissue Yes -Type of bioengineered Tissue EPIFIX -Expiration Date 09/16/24 -Product Lot Number [id number] -Percent Used 100 -Saline Lot Number [id number] -Bleeding Controlled with Pressure -Offloading Yes -Type of Offloading Total Contact Cast (TCC) -Treatment Response Procedure Tolerated Well [See Physician Procedure note for Specifics] Pain Scale: 0-10 Numeric [Pain] -Is Patient Pain Free? Yes Yes Musculoskeletal: No Tenderness to Palpation of Joints or Extremities, Muscle Wasting Neurological: - - Lack of normal epicritic sensation light touch is consistent with neuropathy status Psych/Mental Status: Normal Affect, Appropriate Debridement Note Post-Debridement Measurements/Treatment WC - Nurse 2 - General Ulcer CM Notes Start: 01/16/20 09:39 Freq: Status: Active Protocol: Activity Type Activity Date Activity User E-Sign Co-Sign Detail Recorded Client Recorded Date Recorded By Document 04/01/20 13:31 [id number] 01/16/20 13:32 Document 01/23/20 12:07 [id number] 01/23/20 12:09 Document 01/28/20 09:52 [id number] 01/28/20 10:00 Document 01/30/20 12:40 [id number] 01/30/20 12:55 Document 02/06/20 13:12 [id number] 02/06/20 13:15 Document 02/11/20 10:25 [id number] 02/11/20 10:27 Document 02/13/20 13:37 [id number] 02/13/20 13:40 01/16/20 01/23/20 01/28/20 13:31 12:07 09:52 Wound Center Nurse 2 14-right 5th toe -Time -Correct Patient -Correct Side, Site, Position -Correct Procedure -Procedure Performed -Type of Procedure -Clinical Debridement -Post Debridement Size (cm) - Length -Post Debridement Size (cm) - Width -Post Debridement Size (cm) - Depth -Total Square Cm -Wound/Ulcer Outcome -Ulcer Cleansing -Foul Odor after Cleansing -Bioengineered Tissue -Type of bioengineered Tissue -Expiration Date -Product Lot Number -Percent Used -Saline Lot Number -Bleeding Controlled with -Offloading -Type of Offloading -Treatment Response #13 R 2nd finger -Time 12:08 09:53 -Correct Patient No Yes -Correct Side, Site, Position No Yes -Correct Procedure No Yes -Procedure Performed No Yes -Type of Procedure Debridement -Clinical Debridement Subcutaneous -Post Debridement Size (cm) - Length 0.6 -Post Debridement Size (cm) - Width 2.8 -Post Debridement Size (cm) - Depth 0.2 -Total Square Cm 1.68 -Wound/Ulcer Outcome Not Healed Not Healed -Ulcer Cleansing Rinsed/ Irrigated with Saline -Foul Odor after Cleansing No -Bioengineered Tissue No -Bleeding Controlled with Pressure Pressure -Offloading No -Treatment Response Procedure Tolerated Well 11. L plantar -Time 13:31 12:08 -Correct Patient Yes Yes -Correct Side, Site, Position Yes Yes -Correct Procedure Yes Yes -Procedure Performed Yes Yes -Type of Procedure Debridement Debridement -Clinical Debridement Subcutaneous Subcutaneous -Post Debridement Size (cm) - Length 1.6 1.2 -Post Debridement Size (cm) - Width 1.6 1.3 -Post Debridement Size (cm) - Depth 0.1 0.2 -Total Square Cm 2.56 1.56 -Wound/Ulcer Outcome Not Healed Not Healed -Ulcer Cleansing Rinsed/ Rinsed/ Irrigated with Irrigated with Saline Saline -Foul Odor after Cleansing No No -Bioengineered Tissue Yes No -Type of bioengineered Tissue EPIFIX -Expiration Date 09/16/24 -Product Lot Number [id number] -Percent Used 100 -Saline Lot Number [id number] -Bleeding Controlled with Pressure Pressure -Offloading Yes Yes -Type of Offloading Total Contact Total Contact Cast (TCC) Cast (TCC) -Treatment Response Procedure Procedure Tolerated Well Tolerated Well Pain Scale: 0-10 Numeric Is Patient Pain Free? Yes Yes Yes 01/30/20 02/06/20 02/11/20 12:40 13:12 10:25 Wound Center Nurse 2 14-right 5th toe -Time 13:14 10:26 -Correct Patient Yes No -Correct Side, Site, Position Yes No -Correct Procedure Yes No -Procedure Performed Yes No -Type of Procedure Debridement -Clinical Debridement Subcutaneous -Post Debridement Size (cm) - Length 0.9 -Post Debridement Size (cm) - Width 0.5 -Post Debridement Size (cm) - Depth 0.1 -Total Square Cm 0.45 -Wound/Ulcer Outcome Not Healed -Ulcer Cleansing Rinsed/ Irrigated with Saline -Foul Odor after Cleansing No No -Bioengineered Tissue No -Type of bioengineered Tissue -Expiration Date -Product Lot Number -Percent Used -Saline Lot Number -Bleeding Controlled with Pressure -Offloading Yes -Type of Offloading Surgical Shoe -Treatment Response Procedure Tolerated Well #13 R 2nd finger -Time 10:27 -Correct Patient Yes -Correct Side, Site, Position Yes -Correct Procedure Yes -Procedure Performed Yes -Type of Procedure Debridement -Clinical Debridement Subcutaneous -Post Debridement Size (cm) - Length 0.6 -Post Debridement Size (cm) - Width 1.2 -Post Debridement Size (cm) - Depth 0.2 -Total Square Cm 0.72 -Wound/Ulcer Outcome Not Healed -Ulcer Cleansing Rinsed/ Irrigated with Saline -Foul Odor after Cleansing No -Bioengineered Tissue No -Bleeding Controlled with Pressure -Offloading No -Treatment Response Procedure Tolerated Well 11. L plantar -Time 12:40 13:13 -Correct Patient Yes Yes -Correct Side, Site, Position Yes Yes -Correct Procedure Yes Yes -Procedure Performed Yes Yes -Type of Procedure Debridement Debridement -Clinical Debridement Subcutaneous Subcutaneous -Post Debridement Size (cm) - Length 0.9 1.0 -Post Debridement Size (cm) - Width 1.2 1.1 -Post Debridement Size (cm) - Depth 0.2 0.2 -Total Square Cm 1.08 1.10 -Wound/Ulcer Outcome Not Healed Not Healed -Ulcer Cleansing Rinsed/ Rinsed/ Irrigated with Irrigated with Saline Saline -Foul Odor after Cleansing No No -Bioengineered Tissue Yes Yes -Type of bioengineered Tissue EPIFIX EPIFIX -Expiration Date 09/16/24 09/16/24 -Product Lot Number [id number] -Percent Used 100 100 -Saline Lot Number [id number] -Bleeding Controlled with Pressure Pressure -Offloading Yes Yes -Type of Offloading Total Contact Total Contact Cast (TCC) Cast (TCC) -Treatment Response Procedure Procedure Tolerated Well Tolerated Well Pain Scale: 0-10 Numeric Is Patient Pain Free? Yes Yes Yes 02/13/20 13:37 Wound Center Nurse 2 14-right 5th toe -Time 13:37 -Correct Patient Yes -Correct Side, Site, Position Yes -Correct Procedure Yes -Procedure Performed Yes -Type of Procedure Debridement -Clinical Debridement Subcutaneous -Post Debridement Size (cm) - Length 0.6 -Post Debridement Size (cm) - Width 0.6 -Post Debridement Size (cm) - Depth 0.1 -Total Square Cm 0.36 -Wound/Ulcer Outcome Not Healed -Ulcer Cleansing Rinsed/ Irrigated with Saline -Foul Odor after Cleansing No -Bioengineered Tissue Yes -Type of bioengineered Tissue EPIFIX -Expiration Date 09/16/24 -Product Lot Number [id number] -Percent Used 100 -Saline Lot Number [id number] -Bleeding Controlled with Pressure -Offloading Yes -Type of Offloading Surgical Shoe -Treatment Response Procedure Tolerated Well #13 R 2nd finger -Time 13:38 -Correct Patient -Correct Side, Site, Position -Correct Procedure -Procedure Performed -Type of Procedure -Clinical Debridement -Post Debridement Size (cm) - Length -Post Debridement Size (cm) - Width -Post Debridement Size (cm) - Depth -Total Square Cm -Wound/Ulcer Outcome -Ulcer Cleansing -Foul Odor after Cleansing -Bioengineered Tissue -Bleeding Controlled with -Offloading -Treatment Response 11. L plantar -Time 13:38 -Correct Patient Yes -Correct Side, Site, Position Yes -Correct Procedure Yes -Procedure Performed Yes -Type of Procedure Debridement -Clinical Debridement Subcutaneous -Post Debridement Size (cm) - Length 1 -Post Debridement Size (cm) - Width 0.6 -Post Debridement Size (cm) - Depth 0.1 -Total Square Cm 0.6 -Wound/Ulcer Outcome Not Healed -Ulcer Cleansing Rinsed/ Irrigated with Saline -Foul Odor after Cleansing No -Bioengineered Tissue Yes -Type of bioengineered Tissue EPIFIX -Expiration Date 09/16/24 -Product Lot Number [id number] -Percent Used 100 -Saline Lot Number [id number] -Bleeding Controlled with Pressure -Offloading Yes -Type of Offloading Total Contact Cast (TCC) -Treatment Response Procedure Tolerated Well Pain Scale: 0-10 Numeric Is Patient Pain Free? Yes Wound debrided: 5th toe Laterality: Right Wound Grade/Stage: grade 1 Type of Debridement: Excisional debridement Anesthesia Used: 5% Lidocaine Gel Depth: in the subcutaneous layer Percentage of wound debrided: 100 Instrument Used: #15 blade Tissue Removed: fibrous, devitalized subcutaneous, biofilm, slough Severity: Fat Layer Exposed Amount of bleeding with debridement: Mild Bleeding Controlled with: Pressure Patient tolerated procedure well - Additional Wound Wound debrided: sub metatarsal head Laterality: Left Wound Grade/Stage: grade 3 Type of Debridement: Excisional debridement Anesthesia Used: 5% Lidocaine Gel Depth: in the subcutaneous layer Percentage of wound debrided: 100 Instrument Used: #15 blade Tissue Removed: fibrous, devitalized subcutaneous, biofilm, slough Severity: Fat Layer Exposed Amount of bleeding with debridement: Mild Bleeding Controlled with: Pressure Patient tolerated procedure: Patient tolerated procedure well Assessment/Plan Assessment: Left foot ulcer with capsule/muscle tissue exposed, Rousseau grade 3 treated for infection/bacterial colonization. Left foot deformities including tailor bunion and hammertoe. Peripheral vascular disease. Diabetes with polyneuropathy. Malnutrition. Delayed healing. Raynaud's disease. Finger ulcer management by Dr. Bishop Plan: I reviewed and discussed his case today. Subcutaneous excisional debridement was performed as noted in the clinical panel to the left foot and right foot. It is noted he is also being treated for a necrotic finger ulcer with Dr. Bishop. I recommend application of advanced wound healing product today, epi-fix. This is medically necessary for limb salvage. He understands the indications, planned application, anticipated healing time and management. This was applied again today after verbal consent was obtained according standard protocol. This was secured with a wound veil and Steri-Strips. He was advised to keep this clean, dry, intact until follow-up next week. He tolerated this well. This is medically necessary for limb salvage. To continue proper glycemic control nutritional supplementation optimize healing. Is noted his last hemoglobin A1c we have on file here is 5.9%. He was advised to follow-up with his vascular surgeon, Dr. Pena as scheduled. He had recent updated vascular studies performed and Dr. Pena is considering additional intervention. I recommend proceeding if there are options available. Osteomyelitis signs were not apparent on the MRI and this will be monitored very closely. Compliance was discussed. He was reassured there are no local signs of infection on the foot today. I answered his questions. He had prior capsule muscle tissue exposed and that further was infected per his culture results which would qualify and is awaiting grade 3. Hyperbaric oxygen therapy is an option for him and he was advised to continue. He has been doing well. Additionally, a well-padded total contact cast was applied with the lower extremity in a rectus position. Verbal consent was obtained and he tolerated this well. He was advised the this clean, dry, and intact until follow-up next week. He denies being claustrophobic. Improved offloading was discussed also he is amendable to proceed with a total contact cast. Verbal consent was obtained and this was applied according standard protocol in a neutral position and also well-padded. He tolerated this well. he was advised to keep this clean, dry, and intact until follow-up next week. His more recent right fifth toe ulcer site is noted and he was advised to keep pressure off the site. He was fitted with a surgical shoe appropriately offloads this was advised to continue use. To change dressing daily with [facility]. He was reassured no signs of infection are noted. To return to the wound healing center in 1 week or call sooner if he has any questions or concerns.
[2020-02-13 14:37] VITALS: BP 118/61; BP 143/74; PULSE 78; PULSE 89; RESP 18; TEMP 36.2; TEMP 36.8
[2020-02-14 10:10] LABS: Bedside Glucose 226 mg/dL (70-110)
[2020-02-14 11:50] VITALS: BP 123/69; PULSE 81; RESP 18; TEMP 35.8
[2020-02-14 13:01] LABS: Bedside Glucose 135 mg/dL (70-110)
--- NOTE | 2020-02-14 13:12 | HBO.PN.PCM_ITS ---
History of Present Illness Date of Service: 02/14/20 Presenting Chief Complaint: Right and left foot ulcers RICK GEORGE Jr. is a 59 year old currently undergoing hyperbaric oxygen therapy for left plantar Rousseau grade 3 diabetic foot ulcer. Progress: Today represents 29th hyperbaric oxygen treatment of 40 planned treatments. Tolerance of hyperbaric oxygen therapy: Hyperbaric oxygen treatment was provided as per the facility's protocol at 2.0 VINNY and 100% oxygen for 90 minutes. The patient tolerated hyperbaric oxygen well, without complications or complaints. Upon emergence of the hyperbaric chamber the patient's vital signs remained stable. The patient did have barotrauma that occurred to the bilateral TMs after his first HBO treatment and therefore he received bilateral tympanostomy tubes on 12/20/2019. Pre-and post blood glucose levels as documented Past Medical History Chronic Problems (Last Updated 01/09/20 @ 13:[address] 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) Allergies/Adverse Reactions: Allergies atorvastatin Adverse Reaction (Verified 08/23/19 12:36) Unknown metformin Adverse Reaction (Verified 08/23/19 12:36) Diarrhea Home Medications: Ambulatory Orders Medication Instructions Recorded Ammonium Lactate [Amlactin] 57 gm TP PRN PRN 10/04/17 Celecoxib [Celebrex] 200 mg PO DAILY 10/04/17 Cholecalciferol (Vitamin D3) 5,000 unit PO DAILY 10/04/17 [Vitamin D3] Levomefolate/B6/B12/Algal Oil 1 ea PO DAILY 10/04/17 [Metanx Capsule] Nortriptyline HCl 50 mg PO QHS 10/04/17 Biotin 1 mg PO DAILY 04/01/18 Desonide 0.05% [Desowen 0.05% 1 applic TOPICAL BID 04/01/18 Cream] Diflorasone Diacetate [Psorcon] 1 applicatio TP BID PRN 04/01/18 Insulin Glargine,Hum.rec.anlog 20 unit SQ QHS 04/01/18 [Basaglar Kwikpen U-100] Insulin Lispro [Humalog KwikPen] See Protocol SQ TIDCM 04/01/18 Ketoconazole [Nizoral] 1 applic TOPICAL DAILY PRN 04/01/18 Magnesium 250 mg PO DAILY 04/01/18 metoprolol tartrate 25 mg tablet 12.5 mg PO BID tab MDD 1.5 tabs 07/19/18 albuterol sulfate 90 mcg/actuation 2 puff INHALATION Q4H PRN g 08/13/19 aerosol inhaler amlodipine 10 mg tablet 10 mg PO DAILY 08/13/19 becaplermin 0.01 % topical gel 1 applic TOPICAL DAILY 08/13/19 cetirizine 10 mg tablet 10 mg PO DAILY 08/13/19 gabapentin 300 mg capsule 900 mg PO TID cap 08/13/19 nifedipine 30 mg tablet,extended 30 mg PO DAILY 08/13/19 release simvastatin 10 mg tablet 10 mg PO QHS 08/13/19 vardenafil 20 mg tablet 20 mg PO DAILY PRN 08/13/19 Cyanocobalamin [Vitamin B12] 1,000 mcg IM Q30D 08/22/19 aspirin 81 mg tablet,delayed 162 mg PO DAILY tab MDD . 10/12/19 release baclofen 20 mg tablet 30 mg PO TID tab 10/12/19 cephalexin 500 mg capsule 500 mg PO Q6H cap 10/12/19 famotidine 20 mg tablet 20 mg PO DAILY PRN 10/12/19 furosemide 20 mg tablet 20 mg PO BID PRN tab 10/12/19 lisinopril 5 mg tablet 5 mg PO QDAY #30 tab 01/28/20 Maternal Family History: Family History (Last Reviewed 10/18/19 @ 11:24 by Linda Leon) Other Arthritis Hypertension Family History: Diabetes Paternal Family History: Family History (Last Reviewed 10/18/19 @ 11:24 by Linda Leon) Other Arthritis Hypertension Family History: Diabetes Smoking Status: Current every day smoker Physical Exam Vital Signs Temp Pulse Resp BP Pulse Ox 96.4 F L 81 18 123/69 H 100 02/14/20 11:50 02/14/20 11:50 02/14/20 11:50 02/14/20 11:50 02/11/20 09:47 General: Alert, Oriented x3, Cooperative, No apparent distress HEENT: Atraumatic, Normocephalic Lungs: Normal air movement Psych/Mental Status: Normal Affect Assessment/Plan Active Problems (Last Updated 01/09/20 @ 13:[address] 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 grade 3 treated medically Delayed wound healing (Chronic) Malnutrition (Chronic) Peripheral vascular disease (Chronic) Type 2 diabetes mellitus with diabetic polyneuropathy (Chronic) Skin ulcer of finger with fat layer exposed (Chronic) necrotic ulcer dorsum right long finger at DIP joint The patient tolerated the Hyperbaric oxygen treatment well, which will be continued as per his medical plan. HBO supervision
== END 2020-02-14 23:59 ==
LOC: WC 10:15
PROVIDERS: Family Provider Student in an Organized Health Care Education/Training Program; PCP Student in an Organized Health Care Education/Training Program; Referring Provider Podiatrist; Visit Provider Podiatrist
DX: E11.621 Type 2 diabetes mellitus with foot ulcer (principal); L97.522 Non-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ulcer of other part of left foot with fat layer exposed; E11.51 Type 2 diabetes mellitus with diabetic peripheral angiopathy without gangrene; E11.42 Type 2 diabetes mellitus with diabetic polyneuropathy; R60.0 Localized edema; M20.42 Other hammer toe(s) (acquired), left foot; I73.00 Raynaud's syndrome without gangrene; L98.492 Non-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ulcer of skin of other sites with fat layer exposed; X31.XXXA Exposure to excessive natural cold, initial encounter; Z72.0 Tobacco use; I25.10 Atherosclerotic heart disease of native coronary artery without angina pectoris; Z95.1 Presence of aortocoronary bypass graft; I10 Essential (primary) hypertension; Z79.899 Other long term (current) drug therapy; Z79.4 Long term (current) use of insulin; Z79.82 Long term (current) use of aspirin; L98.491 Non-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ulcer of skin of other sites limited to breakdown of skin; L97.512 Non-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ulcer of other part of right foot with fat layer exposed
CPT/HCPCS: 11042; 15275; 29445; 82962; 99183; 99211; 99212; Q4186; G0277; G0463

== ENCOUNTER 2020-03-05 13:00 | Outpatient (RCR) | payer MEDICAID, SELFPAY ==
[2020-02-13 13:23] VITALS: BMI 28.7
[2020-02-15 00:13] VITALS: BP 123/69; PULSE 81; RESP 18; TEMP 35.8; O2SAT 100
[2020-02-15 12:55] LABS: Bedside Glucose 173 mg/dL (70-110)
[2020-02-15 14:12] VITALS: BP 103/65; BP 91/67; PULSE 71; PULSE 87; RESP 18; TEMP 36.2; TEMP 36.7
[2020-02-15 16:35] LABS: Bedside Glucose 230 mg/dL (70-110)
--- NOTE | 2020-02-15 16:40 | PCM.HBO.PN ---
History of Present Illness Date of Service: 02/15/20 Presenting Chief Complaint: Right and left foot ulcers RICK GEORGE Jr. is a 59 year old currently undergoing hyperbaric oxygen therapy for left plantar Rousseau grade 3 diabetic foot ulcer. Progress: Today represents 30th hyperbaric oxygen treatment of 40 planned treatments. Tolerance of hyperbaric oxygen therapy: Hyperbaric oxygen treatment was provided as per the facility's protocol at 2.0 VINNY and 100% oxygen for 90 minutes. The patient tolerated hyperbaric oxygen well, without complications or complaints. Upon emergence of the hyperbaric chamber the patient's vital signs remained stable. The patient did have barotrauma that occurred to the bilateral TMs after his first HBO treatment and therefore he received bilateral tympanostomy tubes on 12/20/2019. Pre-and post blood glucose levels as documented Past Medical History Chronic Problems (Last Updated 01/09/20 @ 13:[address] 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) Allergies/Adverse Reactions: Allergies atorvastatin Adverse Reaction (Verified 08/23/19 12:36) Unknown metformin Adverse Reaction (Verified 08/23/19 12:36) Diarrhea Home Medications: Ambulatory Orders Medication Instructions Recorded Ammonium Lactate [Amlactin] 57 gm TP PRN PRN 10/04/17 Celecoxib [Celebrex] 200 mg PO DAILY 10/04/17 Cholecalciferol (Vitamin D3) 5,000 unit PO DAILY 10/04/17 [Vitamin D3] Levomefolate/B6/B12/Algal Oil 1 ea PO DAILY 10/04/17 [Metanx Capsule] Nortriptyline HCl 50 mg PO QHS 10/04/17 Biotin 1 mg PO DAILY 04/01/18 Desonide 0.05% [Desowen 0.05% 1 applic TOPICAL BID 04/01/18 Cream] Diflorasone Diacetate [Psorcon] 1 applicatio TP BID PRN 04/01/18 Insulin Glargine,Hum.rec.anlog 20 unit SQ QHS 04/01/18 [Basaglar Kwikpen U-100] Insulin Lispro [Humalog KwikPen] See Protocol SQ TIDCM 04/01/18 Ketoconazole [Nizoral] 1 applic TOPICAL DAILY PRN 04/01/18 Magnesium 250 mg PO DAILY 04/01/18 metoprolol tartrate 25 mg tablet 12.5 mg PO BID tab MDD 1.5 tabs 07/19/18 albuterol sulfate 90 mcg/actuation 2 puff INHALATION Q4H PRN g 08/13/19 aerosol inhaler amlodipine 10 mg tablet 10 mg PO DAILY 08/13/19 becaplermin 0.01 % topical gel 1 applic TOPICAL DAILY 08/13/19 cetirizine 10 mg tablet 10 mg PO DAILY 08/13/19 gabapentin 300 mg capsule 900 mg PO TID cap 08/13/19 nifedipine 30 mg tablet,extended 30 mg PO DAILY 08/13/19 release simvastatin 10 mg tablet 10 mg PO QHS 08/13/19 vardenafil 20 mg tablet 20 mg PO DAILY PRN 08/13/19 Cyanocobalamin [Vitamin B12] 1,000 mcg IM Q30D 08/22/19 aspirin 81 mg tablet,delayed 162 mg PO DAILY tab MDD . 10/12/19 release baclofen 20 mg tablet 30 mg PO TID tab 10/12/19 cephalexin 500 mg capsule 500 mg PO Q6H cap 10/12/19 famotidine 20 mg tablet 20 mg PO DAILY PRN 10/12/19 furosemide 20 mg tablet 20 mg PO BID PRN tab 10/12/19 lisinopril 5 mg tablet 5 mg PO QDAY #30 tab 01/28/20 Maternal Family History: Family History (Last Reviewed 10/18/19 @ 11:24 by Linda Leon) Other Arthritis Hypertension Family History: Diabetes Paternal Family History: Family History (Last Reviewed 10/18/19 @ 11:24 by Linda Leon) Other Arthritis Hypertension Family History: Diabetes Smoking Status: Current every day smoker Physical Exam Vital Signs Temp Pulse Resp BP Pulse Ox 97.1 F L 87 18 91/67 100 02/15/20 14:12 02/15/20 14:12 02/15/20 14:12 02/15/20 14:12 02/15/20 00:13 General: Alert, Oriented x3, Cooperative, No apparent distress Psych/Mental Status: Normal Affect, Appropriate Assessment/Plan Active Problems (Last Updated 01/09/20 @ 13:[address] 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
--- NOTE | 2020-02-18 08:24 | WC ---
On 02/14/20 patient complained of pain shooting up his leg. Patient was wearing a TCC cast and stated that he had not had any pain before. There were no obvious signs of the cast rubbing that could be seen. Dr. Tapia was contact and an order was recieved to remove the cast and apply a DSD to the wound area. Once cast was removed, there were no obvious signs of injury. DSD dressing applied.
[2020-02-18 09:12] VITALS: BP 117/65; PULSE 82; RESP 16; TEMP 35.9; BMI 28.7
[2020-02-18 10:00] LABS: Bedside Glucose 155 mg/dL (70-110)
--- NOTE | 2020-02-18 10:00 | PN.PCM_ITS ---
(1) Skin ulcer of finger with fat layer exposed Status: Chronic Current Visit: Yes Code(s): L98.492 - Non-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ulcer of skin of other sites with fat layer exposed Comment: necrotic ulcer dorsum right long finger at DIP joint (2) Delayed wound healing Status: Chronic Current Visit: Yes Code(s): T14.8XXD - Other injury of unspecified body region, subsequent encounter (3) Raynaud disease Status: Chronic Current Visit: Yes Code(s): I73.00 - Raynaud's syndrome with out gangrene (4) History of frostbite Status: Chronic Current Visit: Yes Code(s): Z91.89 - Other specified personal risk factors, not elsewhere classified Comment: left long finger, right index finger, right long finger, and right ring finger (5) Peripheral vascular disease Status: Chronic Current Visit: No Code(s): I73.9 - Peripheral vascular disease, unspecified (6) Diabetes mellitus type 2 with complications Status: Chronic Current Visit: Yes Code(s): E11.8 - Type 2 diabetes mellitus with unspecified complications Type of Wound Date of Service: 02/18/20 Chief Complaint: Recent frostbite right long finger with nonhealing necrotic ulcer. History of Wound: 59-year-old man with a history of diabetes who is presently being seen for a left diabetic foot ulcer has some skin necrosis on the dorsum right long finger at the DIP joint. He sustained frostbite back on October 03, 2019 involving his left long finger, right index finger, right long finger, and right ring finger. He was seen at [facility]. After careful observation to look for areas of demarcation, all the fingers survived with the exception of some skin necrosis on the right long finger. He became concerned recently because of increased pain and drainage from the eschar. Patient is right hand dominant. A wound culture from 01/07/20 was positive for Staphylococcus aureas. He has been placed on Doxycycline for this. Wound care to right long finger will stop the moistened Tegan and start Collagen hydrogel with adaptic covered by gauze and using coband to hold in place daily. Today denies any fevers. Patient states he has a good appetite. Progress of Wound: Stable - Physical Exam Vital Signs Temp Pulse Resp BP Pulse Ox 96.6 F L 82 16 117/65 100 02/18/20 09:12 05/04/20 09:12 02/18/20 09:12 02/18/20 09:12 02/15/20 00:13 General: Alert, Oriented x3, Cooperative HEENT: Atraumatic Oral: Moist Mucosa Lungs: Clear to auscultation, Normal air movement Cardiovascular: Regular rate, Regular Rhythm Abdomen: Bowel Sounds Present, Soft Extremities: Capillary Refill Less than 3 Seconds Skin: Ulcer/ Wound - Right long finger dorsal aspect at DIP joint Wound Measurements and Assessment WC - Nurse 1 - General Ulcer Measurement Start: 02/15/20 14:12 Freq: Status: Active Protocol: Activity Type Activity Date Activity User E-Sign Co-Sign Detail Recorded Client Recorded Date Recorded By Document 02/18/20 09:12 [id number] 02/18/20 09:14 02/18/20 09:12 Wound Center Nurse 1 [Ulcer Assessment] #13 R 2nd finger -Combined with other wound No -Current Size (cm) - Length 0.3 -Current Size (cm) - Width 0.8 -Current Size (cm) - Depth 0.2 -Total Square Cm 0.24 -Photo Taken No -Epithelialization Medium 34-66% -Tunneling No -Undermining/Tunneling No -Circular Undermining No -Exudate Amt Small -Exudate Type Serosanguineous -Wound Margin Flat & Intact -Granulation Amt Medium (34-66%) -Granulation Quality Red -Slough/Fibrin Yes -Necrosis Amt Medium (34-66%) -Necrotic Tissue Type Adherent Slough -Structure Exposed N/A -Texture (Mechelle-wound Skin Appearance) Assessed -Moisture (Mechelle-wound Skin Appearance Assessed,Dry/ ) Scaly -Color (Mechelle-wound Skin Appearance) Assessed -Temperature ([place]helle-wound Skin No Abnormality Appearance) (Pt Warm) -Tenderness on Palpation ([place]helle-wound No Skin Appearance) -Ulcer Cleansing Rinsed/ Irrigated with Saline -Foul Odor after Cleansing No -Anesthetic Used 5% Lidocaine Gel [Edema Assessment] -Lower Limb Edema Present NA WC - Nurse 2 - General Ulcer CM Notes Start: 02/15/20 14:12 Freq: Status: Active Protocol: Activity Type Activity Date Activity User E-Sign Co-Sign Detail Recorded Client Recorded Date Recorded By Document 02/18/20 09:39 [id number] 02/18/20 09:45 02/18/20 09:39 Wound Center Nurse 2 [Procedure/Treatment] #13 R 2nd finger -Time 09:39 -Correct Patient Yes -Correct Side, Site, Position Yes -Correct Procedure Yes -Procedure Performed Yes -Type of Procedure Debridement -Clinical Debridement Subcutaneous -Post Debridement Size (cm) - Length 0.7 -Post Debridement Size (cm) - Width 1.3 -Post Debridement Size (cm) - Depth 0.2 -Total Square Cm 0.91 -Wound/Ulcer Outcome Not Healed -Ulcer Cleansing Rinsed/ Irrigated with Saline -Foul Odor after Cleansing No -Bioengineered Tissue No -Bleeding Controlled with Pressure -Offloading No -Treatment Response Procedure Tolerated Well [See Physician Procedure note for Specifics] Pain Scale: 0-10 Numeric [Pain] -Is Patient Pain Free? Yes Musculoskeletal: No Tenderness to Palpation of Joints or Extremities Neurological: Neuro grossly intact Psych/Mental Status: Normal Affect, Appropriate Debridement Note Post-Debridement Measurements/Treatment WC - Nurse 2 - General Ulcer CM Notes Start: 02/15/20 14:12 Freq: Status: Active Protocol: Activity Type Activity Date Activity User E-Sign Co-Sign Detail Recorded Client Recorded Date Recorded By Document 02/18/20 09:39 [id number] 02/18/20 09:45 02/18/20 09:39 Wound Center Nurse 2 #13 R 2nd finger -Time 09:39 -Correct Patient Yes -Correct Side, Site, Position Yes -Correct Procedure Yes -Procedure Performed Yes -Type of Procedure Debridement -Clinical Debridement Subcutaneous -Post Debridement Size (cm) - Length 0.7 -Post Debridement Size (cm) - Width 1.3 -Post Debridement Size (cm) - Depth 0.2 -Total Square Cm 0.91 -Wound/Ulcer Outcome Not Healed -Ulcer Cleansing Rinsed/ Irrigated with Saline -Foul Odor after Cleansing No -Bioengineered Tissue No -Bleeding Controlled with Pressure -Offloading No -Treatment Response Procedure Tolerated Well Pain Scale: 0-10 Numeric Is Patient Pain Free? Yes Wound debrided: Long finger ulcer Laterality: Right Type of Debridement: Excisional debridement Anesthesia Used: 4% Lidocaine Solution Depth: Down to and including healthy tissue, in the subcutaneous layer Percentage of wound debrided: 100 Instrument Used: 3mm curette Tissue Removed: Subcutaneous tissue and slough Severity: Fat Layer Exposed Amount of bleeding with debridement: Mild Bleeding Controlled with: Pressure Patient tolerated procedure well Today there was increase in dry/scabbing surrounding the ulcer Assessment/Plan Active Problems (Last Updated 01/09/20 @ 13:[address] Lio Bishop MD) History of frostbite (Chronic) left long finger, right index finger, right long finger, and right ring finger Raynaud disease (Chronic) Delayed wound healing (Chronic) Skin ulcer of finger with fat layer exposed (Chronic) necrotic ulcer dorsum right long finger at DIP joint Diabetes mellitus type 2 with complications (Chronic) Assessment: 1. Nonhealing necrotic ulcer dorsum right long finger at DIP joint. 2. Diabetes mellitus. 3. History of recent frostbite. 4. Raynaud's disease. 5. Peripheral vascular disease. 6. Smoker. Plan: Stop thePrisma dressing changes daily. Wound care will now be collagen hydrogel covered by adaptic daily. Hopefully this will help decrease the amount of dry scabbing/biofilm on the ulcer of his right long finger. X-ray from 01/28/20 showed Vascular calcification. 3 tiny bony densities overlying the distal interphalangeal joint of the third digit along the dorsal aspect. There was no evidence of osteomyelitis. If those bony densities cause pain in the future, they may need to be excised. Will monitor. Encourage range of motion exercises to minimize stiffness. A wound culture from 01/07/20 was positive for Staphylococcus aureas. He was placed on Doxycycline for this. His HgbA1c from 08/23/19 was 6.1. His last Prealbumin from 03/04/17 was 24.1. Encourage nutritional supplementation with protein to help the healing process. He is currently getting HBO for a left diabetic foot ulcer which should help to heal his right long finger wound. If healing is delayed, he would need operative debridement with skin flap or skin graft reconstruction. With his history of Raynaud's and peripheral vascular disease and smoking, he is at increased risk of developing wound healing problems and possible osteomyelitis that would lead to an eventual amputation. He voices understanding. He's also at risk for amputation because he gets chemicals on his finger through his cotton gloves at work. He states he doesn't have time to wash his hands often while at work. Encouraged the patient to stop smoking as it may have deleterious effects on wound healing. Followup one week. [id number]: [id number] Lelia subq tissue 20 sq cm/<
[2020-02-18 10:36] VITALS: BP 117/65; PULSE 82; RESP 18; TEMP 35.9
[2020-02-18 12:05] LABS: Bedside Glucose 144 mg/dL (70-110)
[2020-02-18 14:27] VITALS: BP 107/64; PULSE 71; RESP 18; TEMP 36.8
--- NOTE | 2020-02-18 14:44 | HBO.PN.PCM_ITS ---
History of Present Illness Date of Service: 02/18/20 Presenting Chief Complaint: Recent frostbite right long finger with nonhealing necrotic ulcer. RICK GEORGE Jr. is a 59 year old currently undergoing hyperbaric oxygen therapy for left plantar Rousseau grade 3 diabetic foot ulcer. Progress: Today represents 31st hyperbaric oxygen treatment of 40 planned treatments. Tolerance of hyperbaric oxygen therapy: Hyperbaric oxygen treatment was provided as per the facility's protocol at 2.0 VINNY and 100% oxygen for 90 minutes. The patient tolerated hyperbaric oxygen well, without complications or complaints. Upon emergence of the hyperbaric chamber the patient's vital signs remained stable. The patient did have barotrauma that occurred to the bilateral TMs after his first HBO treatment and therefore he received bilateral tympanostomy tubes on 12/20/2019. Pre-and post blood glucose levels as documented Past Medical History Chronic Problems (Last Updated 01/09/20 @ 13:[address] 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 Zhu of [facility] Essential (primary) hypertension (Chronic) Other specified peripheral vascular diseases (Chronic) Skin ulcer of finger with fat layer exposed (Chronic) necrotic ulcer dorsum right long finger at DIP joint 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) Allergies/Adverse Reactions: Allergies atorvastatin Adverse Reaction (Verified 08/23/19 12:36) Unknown metformin Adverse Reaction (Verified 08/23/19 12:36) Diarrhea Home Medications: Ambulatory Orders Medication Instructions Recorded Ammonium Lactate [Amlactin] 57 gm TP PRN PRN 10/04/17 Celecoxib [Celebrex] 200 mg PO DAILY 10/04/17 Cholecalciferol (Vitamin D3) 5,000 unit PO DAILY 10/04/17 [Vitamin D3] Levomefolate/B6/B12/Algal Oil 1 ea PO DAILY 10/04/17 [Metanx Capsule] Nortriptyline HCl 50 mg PO QHS 10/04/17 Biotin 1 mg PO DAILY 04/01/18 Desonide 0.05% [Desowen 0.05% 1 applic TOPICAL BID 04/01/18 Cream] Diflorasone Diacetate [Psorcon] 1 applicatio TP BID PRN 04/01/18 Insulin Glargine,Hum.rec.anlog 20 unit SQ QHS 04/01/18 [Basaglar Kwikpen U-100] Insulin Lispro [Humalog KwikPen] See Protocol SQ TIDCM 04/01/18 Ketoconazole [Nizoral] 1 applic TOPICAL DAILY PRN 04/01/18 Magnesium 250 mg PO DAILY 04/01/18 metoprolol tartrate 25 mg tablet 12.5 mg PO BID tab MDD 1.5 tabs 07/19/18 albuterol sulfate 90 mcg/actuation 2 puff INHALATION Q4H PRN g 08/13/19 aerosol inhaler amlodipine 10 mg tablet 10 mg PO DAILY 08/13/19 becaplermin 0.01 % topical gel 1 applic TOPICAL DAILY 08/13/19 cetirizine 10 mg tablet 10 mg PO DAILY 08/13/19 gabapentin 300 mg capsule 900 mg PO TID cap 08/13/19 nifedipine 30 mg tablet,extended 30 mg PO DAILY 08/13/19 release simvastatin 10 mg tablet 10 mg PO QHS 08/13/19 vardenafil 20 mg tablet 20 mg PO DAILY PRN 08/13/19 Cyanocobalamin [Vitamin B12] 1,000 mcg IM Q30D 08/22/19 aspirin 81 mg tablet,delayed 162 mg PO DAILY tab MDD . 10/12/19 release baclofen 20 mg tablet 30 mg PO TID tab 10/12/19 cephalexin 500 mg capsule 500 mg PO Q6H cap 10/12/19 famotidine 20 mg tablet 20 mg PO DAILY PRN 10/12/19 furosemide 20 mg tablet 20 mg PO BID PRN tab 10/12/19 lisinopril 5 mg tablet 5 mg PO QDAY #30 tab 01/28/20 Maternal Family History: Family History (Last Reviewed 10/18/19 @ 11:24 by Linda Leon) Other Arthritis Hypertension Family History: Diabetes Paternal Family History: Family History (Last Reviewed 10/18/19 @ 11:24 by Linda Leon) Other Arthritis Hypertension Family History: Diabetes Smoking Status: Current every day smoker Physical Exam Vital Signs Temp Pulse Resp BP Pulse Ox 98.2 F 71 18 107/64 100 02/18/20 14:27 02/18/20 14:27 02/18/20 14:27 02/18/20 14:27 02/15/20 00:13 General: Alert, Oriented x3, Cooperative HEENT: Atraumatic, TM's Clear - bilateral ear tubes visible Lungs: Clear to auscultation, Normal air movement Cardiovascular: Regular rate, Regular Rhythm Psych/Mental Status: Normal Affect, Appropriate Assessment/Plan Active Problems (Last Updated 01/09/20 @ 13:[address] Lio Bishop MD) History of frostbite (Chronic) left long finger, right index finger, right long finger, and right ring finger Raynaud disease (Chronic) Delayed wound healing (Chronic) Skin ulcer of finger with fat layer exposed (Chronic) necrotic ulcer dorsum right long finger at DIP joint Diabetes mellitus type 2 with complications (Chronic) The patient tolerated the Hyperbaric oxygen treatment well, which will be continued as per his medical plan. [id number]
[2020-02-19 10:45] LABS: Bedside Glucose 229 mg/dL (70-110)
--- NOTE | 2020-02-19 11:17 | PCM.HBO.PN ---
History of Present Illness Date of Service: 02/19/20 Presenting Chief Complaint: Recent frostbite right long finger with nonhealing necrotic ulcer. RICK GEORGE Jr. is a 59 year old currently undergoing hyperbaric oxygen therapy for left plantar Rousseau grade 3 diabetic foot ulcer. Progress: Today represents 32nd hyperbaric oxygen treatment of 40 planned treatments. Tolerance of hyperbaric oxygen therapy: Hyperbaric oxygen treatment was provided as per the facility's protocol at 2.0 VINNY and 100% oxygen for 90 minutes. The patient tolerated hyperbaric oxygen well, without complications or complaints. Upon emergence of the hyperbaric chamber the patient's vital signs remained stable. The patient did have bilateral tympanostomy tubes placed on 12/20/2019. Pre-and post blood glucose levels as documented. Past Medical History Chronic Problems (Last Updated 01/09/20 @ 13:[address] 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) Allergies/Adverse Reactions: Allergies atorvastatin Adverse Reaction (Verified 08/23/19 12:36) Unknown metformin Adverse Reaction (Verified 08/23/19 12:36) Diarrhea Home Medications: Ambulatory Orders Medication Instructions Recorded Ammonium Lactate [Amlactin] 57 gm TP PRN PRN 10/04/17 Celecoxib [Celebrex] 200 mg PO DAILY 10/04/17 Cholecalciferol (Vitamin D3) 5,000 unit PO DAILY 10/04/17 [Vitamin D3] Levomefolate/B6/B12/Algal Oil 1 ea PO DAILY 10/04/17 [Metanx Capsule] Nortriptyline HCl 50 mg PO QHS 10/04/17 Biotin 1 mg PO DAILY 04/01/18 Desonide 0.05% [Desowen 0.05% 1 applic TOPICAL BID 04/01/18 Cream] Diflorasone Diacetate [Psorcon] 1 applicatio TP BID PRN 04/01/18 Insulin Glargine,Hum.rec.anlog 20 unit SQ QHS 04/01/18 [Basaglar Kwikpen U-100] Insulin Lispro [Humalog KwikPen] See Protocol SQ TIDCM 04/01/18 Ketoconazole [Nizoral] 1 applic TOPICAL DAILY PRN 04/01/18 Magnesium 250 mg PO DAILY 04/01/18 metoprolol tartrate 25 mg tablet 12.5 mg PO BID tab MDD 1.5 tabs 07/19/18 albuterol sulfate 90 mcg/actuation 2 puff INHALATION Q4H PRN g 08/13/19 aerosol inhaler amlodipine 10 mg tablet 10 mg PO DAILY 08/13/19 becaplermin 0.01 % topical gel 1 applic TOPICAL DAILY 08/13/19 cetirizine 10 mg tablet 10 mg PO DAILY 08/13/19 gabapentin 300 mg capsule 900 mg PO TID cap 08/13/19 nifedipine 30 mg tablet,extended 30 mg PO DAILY 08/13/19 release simvastatin 10 mg tablet 10 mg PO QHS 08/13/19 vardenafil 20 mg tablet 20 mg PO DAILY PRN 08/13/19 Cyanocobalamin [Vitamin B12] 1,000 mcg IM Q30D 08/22/19 aspirin 81 mg tablet,delayed 162 mg PO DAILY tab MDD . 10/12/19 release baclofen 20 mg tablet 30 mg PO TID tab 10/12/19 cephalexin 500 mg capsule 500 mg PO Q6H cap 10/12/19 famotidine 20 mg tablet 20 mg PO DAILY PRN 10/12/19 furosemide 20 mg tablet 20 mg PO BID PRN tab 10/12/19 lisinopril 5 mg tablet 5 mg PO QDAY #30 tab 01/28/20 Maternal Family History: Family History (Last Reviewed 10/18/19 @ 11:24 by Linda Leon) Other Arthritis Hypertension Family History: Diabetes Paternal Family History: Family History (Last Reviewed 10/18/19 @ 11:24 by Linda Leon) Other Arthritis Hypertension Family History: Diabetes Smoking Status: Current every day smoker Physical Exam Vital Signs Temp Pulse Resp BP Pulse Ox 98.2 F 71 18 107/64 100 02/18/20 14:27 02/18/20 14:27 02/18/20 14:27 02/18/20 14:27 02/15/20 00:13 General: Alert, Oriented x3, Cooperative, No apparent distress HEENT: Atraumatic, TM's Clear Lungs: Clear to auscultation, Normal air movement Cardiovascular: Regular rate, Regular Rhythm Psych/Mental Status: Normal Affect, Appropriate, Alert and oriented to time, place, person, mood and affect Assessment/Plan Active Problems (Last Updated 01/09/20 @ 13:[address] Lio Bishop MD) History of frostbite (Chronic) left long finger, right index finger, right long finger, and right ring finger Raynaud disease (Chronic) Delayed wound healing (Chronic) Skin ulcer of finger with fat layer exposed (Chronic) necrotic ulcer dorsum right long finger at DIP joint Diabetes mellitus type 2 with complications (Chronic) The patient tolerated the Hyperbaric oxygen treatment well, which will be continued as per his medical plan.
[2020-02-19 13:20] LABS: Bedside Glucose 106 mg/dL (70-110)
[2020-02-20 08:27] VITALS: BP 118/67; BP 122/73; PULSE 74; PULSE 83; RESP 18; TEMP 36.6; TEMP 36.8
[2020-02-20 09:47] VITALS: BP 118/55; PULSE 89; RESP 18; TEMP 36.3; BMI 28.7
--- NOTE | 2020-02-20 10:32 | PCM.WC.PN ---
(1) Delayed wound healing Status: Chronic Current Visit: Yes Code(s): T14.8XXD - Other injury of unspecified body region, subsequent encounter (2) Diabetes mellitus type 2 with complications Status: Chronic Current Visit: Yes Code(s): E11.8 - Type 2 diabetes mellitus with unspecified complications (3) History of frostbite Status: Chronic Current Visit: Yes Code(s): Z91.89 - Other specified personal risk factors, not elsewhere classified Comment: left long finger, right index finger, right long finger, and right ring finger (4) Raynaud disease Status: Chronic Current Visit: Yes Code(s): I73.00 - Raynaud's syndrome without gangrene (5) Skin ulcer of finger with fat layer exposed Status: Chronic Current Visit: Yes Code(s): L98.492 - Non-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ulcer of skin of other sites with fat layer exposed Comment: necrotic ulcer dorsum right long finger at DIP joint Type of Wound Date of Service: 02/20/20 Chief Complaint: Recent frostbite right long finger with nonhealing necrotic ulcer. History of Wound: 59-year-old man with a history of diabetes who is presently being seen for a left diabetic foot ulcer has some skin necrosis on the dorsum right long finger at the DIP joint. He sustained frostbite back on October 03, 2019 involving his left long finger, right index finger, right long finger, and right ring finger. He was seen at [facility]. After careful observation to look for areas of demarcation, all the fingers survived with the exception of some skin necrosis on the right long finger. He became concerned recently because of increased pain and drainage from the eschar. Patient is right hand dominant. A wound culture from 01/07/20 was positive for Staphylococcus aureas. He has been placed on Doxycycline for this. Wound care to right long finger will stop the moistened Tegan and start Collagen hydrogel with adaptic covered by gauze and using coband to hold in place daily. Today denies any fevers. Patient states he has a good appetite. Progress of Wound: Patient is here for evaluation for further HBO treatments. But he also complains of severe pain at right base of third finger wrist right elbow and up into his axilla. Evaluating the the third finger wound at the MIP joint he displays maceration around the wound and redness in the first 2 joints of the finger warm to touch. Patient was re-debrided and sent cultures obtained will go by his last cultures to get him started on antibiotics pending the new culture readings. Patient was in agreement and was happy to be on an antibiotic no red streaks up the arm no swelling of the right hand noted no lymph nodes noted. - Physical Exam Vital Signs Temp Pulse Resp BP Pulse Ox 97.4 F L 89 18 118/55 L 100 02/20/20 09:47 02/20/20 09:47 02/20/20 09:47 02/20/20 09:47 02/15/20 00:13 General: Oriented x3, Cooperative, Well developed HEENT: Atraumatic, PERRLA Oral: Moist Mucosa Neck: Supple, No JVD Lungs: Clear to auscultation, Normal air movement Cardiovascular: Regular rate, Regular Rhythm Abdomen: Bowel Sounds Present, Soft, Non Tender, No Hepato-splenomegaly Extremities: No clubbing, No edema, - - Right third finger MIP joint open wound redness warmth to the first 2 joints noted Wound Measurements and Assessment WC - Nurse 1 - General Ulcer Measurement Start: 02/15/20 14:12 Freq: Status: Active Protocol: Activity Type Activity Date Activity User E-Sign Co-Sign Detail Recorded Client Recorded Date Recorded By Document 02/18/20 09:12 MARJORIE [id number] 02/18/20 09:14 MARJORIE 02/18/20 09:12 Wound Center Nurse 1 [Ulcer Assessment] #13 R 2nd finger -Combined with other wound No -Current Size (cm) - Length 0.3 -Current Size (cm) - Width 0.8 -Current Size (cm) - Depth 0.2 -Total Square Cm 0.24 -Photo Taken No -Epithelialization Medium 34-66% -Tunneling No -Undermining/Tunneling No -Circular Undermining No -Exudate Amt Small -Exudate Type Serosanguineous -Wound Margin Flat & Intact -Granulation Amt Medium (34-66%) -Granulation Quality Red -Slough/Fibrin Yes -Necrosis Amt Medium (34-66%) -Necrotic Tissue Type Adherent Slough -Structure Exposed N/A -Texture (Mechelle-wound Skin Appearance) Assessed -Moisture (M[place]helle-wound Skin Appearance Assessed,Dry/ ) Scaly -Color ([place]helle-wound Skin Appearance) Assessed -Temperature ([place]le-wound Skin No Abnormality Appearance) (Pt Warm) -Tenderness on Palpation ([place]helle-wound No Skin Appearance) -Ulcer Cleansing Rinsed/ Irrigated with Saline -Foul Odor after Cleansing No -Anesthetic Used 5% Lidocaine Gel [Edema Assessment] -Lower Limb Edema Present NA - Nurse 2 - General Ulcer CM Notes Start: 02/15/20 14:12 Freq: Status: Active Protocol: Activity Type Activity Date Activity User E-Sign Co-Sign Detail Recorded Client Recorded Date Recorded By Document 02/18/20 09:39 [id number] 02/18/20 09:45 Document 02/20/20 09:58 MW [id number] 02/20/20 10:15 MW 02/18/20 02/20/20 09:39 09:58 Wound Center Nurse 2 [Procedure/Treatment] #13 R 2nd finger -Time 09:39 10:11 -Correct Patient Yes Yes -Correct Side, Site, Position Yes Yes -Correct Procedure Yes Yes -Procedure Performed Yes Yes -Type of Procedure Debridement Debridement -Clinical Debridement Subcutaneous Subcutaneous -Post Debridement Size (cm) - Length 0.7 0.3 -Post Debridement Size (cm) - Width 1.3 0.7 -Post Debridement Size (cm) - Depth 0.2 0.2 -Total Square Cm 0.91 0.21 -Wound/Ulcer Outcome Not Healed Not Healed -Ulcer Cleansing Rinsed/ Rinsed/ Irrigated with Irrigated with Saline Saline -Foul Odor after Cleansing No No -Bioengineered Tissue No No -Bleeding Controlled with Pressure Pressure -Offloading No No -Treatment Response Procedure Procedure Tolerated Well Tolerated Well [See Physician Procedure note for Specifics] Pain Scale: 0-10 Numeric [Pain] -Is Patient Pain Free? Yes Musculoskeletal: No Tenderness to Palpation of Joints or Extremities Lymphatic: No Cervical, Supraclavicular, or Inguinal Adenopathy Neurological: Cranial nerves II-XII grossly intact, Neuro grossly intact Psych/Mental Status: Normal Affect, Appropriate Debridement Note Post-Debridement Measurements/Treatment - Nurse 2 - General Ulcer CM Notes Start: 02/15/20 14:12 Freq: Status: Active Protocol: Activity Type Activity Date Activity User E-Sign Co-Sign Detail Recorded Client Recorded Date Recorded By Document 02/18/20 09:39 [id number] 02/18/20 09:45 Document 02/20/20 09:58 MW [id number] 02/20/20 10:15 MW 02/18/20 02/20/20 09:39 09:58 Wound Center Nurse 2 #13 R 2nd finger -Time 09:39 10:11 -Correct Patient Yes Yes -Correct Side, Site, Position Yes Yes -Correct Procedure Yes Yes -Procedure Performed Yes Yes -Type of Procedure Debridement Debridement -Clinical Debridement Subcutaneous Subcutaneous -Post Debridement Size (cm) - Length 0.7 0.3 -Post Debridement Size (cm) - Width 1.3 0.7 -Post Debridement Size (cm) - Depth 0.2 0.2 -Total Square Cm 0.91 0.21 -Wound/Ulcer Outcome Not Healed Not Healed -Ulcer Cleansing Rinsed/ Rinsed/ Irrigated with Irrigated with Saline Saline -Foul Odor after Cleansing No No -Bioengineered Tissue No No -Bleeding Controlled with Pressure Pressure -Offloading No No -Treatment Response Procedure Procedure Tolerated Well Tolerated Well Pain Scale: 0-10 Numeric Is Patient Pain Free? Yes Wound debrided: Third finger Type of Debridement: Excisional debridement Anesthesia Used: 5% Lidocaine Gel Depth: Down to and including healthy tissue, in the subcutaneous layer Instrument Used: 3mm curette Tissue Removed: Devitalized tissue and fibrin Severity: Limited To Skin Breakdown Amount of bleeding with debridement: Mild Bleeding Controlled with: Compression and gauze Patient tolerated procedure well Assessment/Plan Week and anaerobic cultures obtained right third finger Active Problems (Last Updated 01/09/20 @ 13:[address] Lio Bishop MD) History of frostbite (Chronic) left long finger, right index finger, right long finger, and right ring finger Raynaud disease (Chronic) Delayed wound healing (Chronic) Skin ulcer of finger with fat layer exposed (Chronic) necrotic ulcer dorsum right long finger at DIP joint Diabetes mellitus type 2 with complications (Chronic) Assessment: 1. Nonhealing necrotic ulcer dorsum right long finger at DIP joint. 2. Diabetes mellitus. 3. History of recent frostbite. 4. Raynaud's disease. 5. Peripheral vascular disease. 6. Smoker. Infected finger Plan: Wash the area with Hibiclens or with antibacterial soap. Apply the Aquacel extra to the wound base moistened cover with gauze and Coban tape follow-up 1 week with regular physician. Start Levaquin 500 mg 1 p.o. daily for 14 days we will call with the culture results if need to be changed
--- NOTE | 2020-02-20 10:40 | PCM.CONHBO ---
(1) Delayed wound healing Status: Chronic Current Visit: Yes Code(s): T14.8XXD - Other injury of unspecified body region, subsequent encounter (2) Diabetes mellitus type 2 with complications Status: Chronic Current Visit: Yes Code(s): E11.8 - Type 2 diabetes mellitus with unspecified complications (3) History of frostbite Status: Chronic Current Visit: Yes Code(s): Z91.89 - Other specified personal risk factors, not elsewhere classified Comment: left long finger, right index finger, right long finger, and right ring finger (4) Raynaud disease Status: Chronic Current Visit: Yes Code(s): I73.00 - Raynaud's syndrome without gangrene (5) Skin ulcer of finger with fat layer exposed Status: Chronic Current Visit: Yes Code(s): L98.492 - Non-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ulcer of skin of other sites with fat layer exposed Comment: necrotic ulcer dorsum right long finger at DIP joint History of Present Illness Date of Service: 02/20/20 Presenting Chief Complaint: Recent frostbite right long finger with nonhealing necrotic ulcer. The patient is a 59 year old M who [facility] continued hyperbaric oxygen therapy for treatment of left and right foot ulcers and right third finger ulcers [] Past Medical History Chronic Problems (Last Updated 01/09/20 @ 13:[address] 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) Allergies/Adverse Reactions: Allergies atorvastatin Adverse Reaction (Verified 08/23/19 12:36) Unknown metformin Adverse Reaction (Verified 08/23/19 12:36) Diarrhea Home Medications: Ambulatory Orders Medication Instructions Recorded Ammonium Lactate [Amlactin] 57 gm TP PRN PRN 10/04/17 Celecoxib [Celebrex] 200 mg PO DAILY 10/04/17 Cholecalciferol (Vitamin D3) 5,000 unit PO DAILY 10/04/17 [Vitamin D3] Levomefolate/B6/B12/Algal Oil 1 ea PO DAILY 10/04/17 [Metanx Capsule] Nortriptyline HCl 50 mg PO QHS 10/04/17 Biotin 1 mg PO DAILY 04/01/18 Desonide 0.05% [Desowen 0.05% 1 applic TOPICAL BID 04/01/18 Cream] Diflorasone Diacetate [Psorcon] 1 applicatio TP BID PRN 04/01/18 Insulin Glargine,Hum.rec.anlog 20 unit SQ QHS 04/01/18 [Basaglar Kwikpen U-100] Insulin Lispro [Humalog KwikPen] See Protocol SQ TIDCM 04/01/18 Ketoconazole [Nizoral] 1 applic TOPICAL DAILY PRN 04/01/18 Magnesium 250 mg PO DAILY 04/01/18 metoprolol tartrate 25 mg tablet 12.5 mg PO BID tab MDD 1.5 tabs 07/19/18 albuterol sulfate 90 mcg/actuation 2 puff INHALATION Q4H PRN g 08/13/19 aerosol inhaler amlodipine 10 mg tablet 10 mg PO DAILY 08/13/19 becaplermin 0.01 % topical gel 1 applic TOPICAL DAILY 08/13/19 cetirizine 10 mg tablet 10 mg PO DAILY 08/13/19 gabapentin 300 mg capsule 900 mg PO TID cap 08/13/19 nifedipine 30 mg tablet,extended 30 mg PO DAILY 08/13/19 release simvastatin 10 mg tablet 10 mg PO QHS 08/13/19 vardenafil 20 mg tablet 20 mg PO DAILY PRN 08/13/19 Cyanocobalamin [Vitamin B12] 1,000 mcg IM Q30D 08/22/19 aspirin 81 mg tablet,delayed 162 mg PO DAILY tab MDD . 10/12/19 release baclofen 20 mg tablet 30 mg PO TID tab 10/12/19 cephalexin 500 mg capsule 500 mg PO Q6H cap 10/12/19 famotidine 20 mg tablet 20 mg PO DAILY PRN 10/12/19 furosemide 20 mg tablet 20 mg PO BID PRN tab 10/12/19 lisinopril 5 mg tablet 5 mg PO QDAY #30 tab 01/28/20 Maternal Family History: Family History (Last Reviewed 10/18/19 @ 11:24 by Linda Leon) Other Arthritis Hypertension Family History: Diabetes Paternal Family History: Family History (Last Reviewed 10/18/19 @ 11:24 by Linda Leon) Other Arthritis Hypertension Family History: Diabetes Smoking Status: Current every day smoker Review of Systems Constitutional: Denies: Chills, Fever Eyes: Denies: Blurred vision, Drainage, Pain HEENT: Denies: Difficulty Hearing, Difficulty Swallowing, Sore Throat, Visual Changes Cardiovascular: Denies: Chest Pain, Palpitations, Syncope Respiratory: Denies: Cough, Shortness of Breath Gastrointestinal: Denies: Abdominal Pain, Nausea, Vomiting Genitourinary: Denies: Dysuria, Frequency Musculoskeletal: Reports: - - Complains of pain in the right third finger base right wrist right elbow right axilla area. Denies: Joint Pain, Muscle pain Skin: Reports: Wounds. Denies: Jaundice, Rash Neurological: Reports: Tremor. Denies: Balance problems, Change in Speech, Difficulty swallowing, Focal weakness Psychiatric: Denies: Anxiety, Depression Endocrine: Reports: Heat/ Cold Intolerance. Denies: Change in Body Habitus Hematologic/ Lymphatic: Denies: Adenopathy - Physical Exam Vital Signs Temp Pulse Resp BP Pulse Ox 97.4 F L 89 18 118/55 L 100 02/20/20 09:47 02/20/20 09:47 02/20/20 09:47 02/20/20 09:47 02/15/20 00:13 General: Oriented x3, Cooperative, Well developed HEENT: Atraumatic, PERRLA, TM's Clear - And bilateral tubes in place Oral: Moist Mucosa Neck: Supple, No JVD Lungs: Clear to auscultation, Normal air movement Cardiovascular: Regular rate, Regular Rhythm Abdomen: Bowel Sounds Present, Soft, Non Tender, No Hepato-splenomegaly Extremities: No clubbing, No edema, Diminished Peripheral Pulses, Tenderness - Right third finger tenderness red and warm to touch Wound Measurements and Assessment WC - Nurse 1 - General Ulcer Measurement Start: 02/15/20 14:12 Freq: Status: Active Protocol: Activity Type Activity Date Activity User E-Sign Co-Sign Detail Recorded Client Recorded Date Recorded By Document 02/18/20 09:12 MARJORIE [id number] 02/18/20 09:14 MARJORIE 02/18/20 09:12 [facility] Nurse 1 [Ulcer Assessment] #13 R 2nd finger -Combined with other wound No -Current Size (cm) - Length 0.3 -Current Size (cm) - Width 0.8 -Current Size (cm) - Depth 0.2 -Total Square Cm 0.24 -Photo Taken No -Epithelialization Medium 34-66% -Tunneling No -Undermining/Tunneling No -Circular Undermining No -Exudate Amt Small -Exudate Type Serosanguineous -Wound Margin Flat & Intact -Granulation Amt Medium (34-66%) -Granulation Quality Red -Slough/Fibrin Yes -Necrosis Amt Medium (34-66%) -Necrotic Tissue Type Adherent Slough -Structure Exposed N/A -Texture (Mechelle-wound Skin Appearance) Assessed -Moisture ([place]helle-wound Skin Appearance Assessed,Dry/ ) Scaly -Color ([place]helle-wound Skin Appearance) Assessed -Temperature ([place]le-wound Skin No Abnormality Appearance) (Pt Warm) -Tenderness on Palpation ([place]helle-wound No Skin Appearance) -Ulcer Cleansing Rinsed/ Irrigated with Saline -Foul Odor after Cleansing No -Anesthetic Used 5% Lidocaine Gel [Edema Assessment] -Lower Limb Edema Present NA WC - Nurse 2 - General Ulcer CM Notes Start: 02/15/20 14:12 Freq: Status: Active Protocol: Activity Type Activity Date Activity User E-Sign Co-Sign Detail Recorded Client Recorded Date Recorded By Document 02/18/20 09:39 [id number] 02/18/20 09:45 JF Document 02/20/20 09:58 MW [id number] 02/20/20 10:15 MW 02/18/20 02/20/20 09:39 09:58 Wound Center Nurse 2 [Procedure/Treatment] #13 R 2nd finger -Time 09:39 10:11 -Correct Patient Yes Yes -Correct Side, Site, Position Yes Yes -Correct Procedure Yes Yes -Procedure Performed Yes Yes -Type of Procedure Debridement Debridement -Clinical Debridement Subcutaneous Subcutaneous -Post Debridement Size (cm) - Length 0.7 0.3 -Post Debridement Size (cm) - Width 1.3 0.7 -Post Debridement Size (cm) - Depth 0.2 0.2 -Total Square Cm 0.91 0.21 -Wound/Ulcer Outcome Not Healed Not Healed -Ulcer Cleansing Rinsed/ Rinsed/ Irrigated with Irrigated with Saline Saline -Foul Odor after Cleansing No No -Bioengineered Tissue No No -Bleeding Controlled with Pressure Pressure -Offloading No No -Treatment Response Procedure Procedure Tolerated Well Tolerated Well [See Physician Procedure note for Specifics] Pain Scale: 0-10 Numeric [Pain] -Is Patient Pain Free? Yes Musculoskeletal: No Tenderness to Palpation of Joints or Extremities Lymphatic: No Cervical, Supraclavicular, or Inguinal Adenopathy Neurological: Cranial nerves II-XII grossly intact, Neuro grossly intact Psych/Mental Status: Normal Affect, Appropriate Assessment/Plan Active Problems (Last Updated 01/09/20 @ 13:[address] Lio Bishop MD) History of frostbite (Chronic) left long finger, right index finger, right long finger, and right ring finger Raynaud disease (Chronic) Delayed wound healing (Chronic) Skin ulcer of finger with fat layer exposed (Chronic) necrotic ulcer dorsum right long finger at DIP joint Diabetes mellitus type 2 with complications (Chronic) RICK GEORGE Jr. is an appropriate candidate for hyperbaric oxygen therapy. Hyperbaric Oxygen Therapy would be an essential adjunct in the resolution and treatment of this patient's presenting problem. This patient has sufficient physiologic and psychological stamina to undergo the rigors of hyperbaric oxygen therapy. After reevaluation for hyperbaric chamber As such, I recommend the following: Hyperbaric Oxygen Treatments at 2.0 VINNY in 100% Oxygen for 90 minutes per treatment, for [20] more treatments. I have discussed the possible benefits of hyperbaric oxygen therapy with this patient. I have also presented and described the risks, including: air gas embolism, pneumothorax, central nervous system and pulmonary oxygen toxicity, flash pulmonary edema, hypoglycemia, reversible visual refractive changes, ear and sinus robin-trauma, and confinement anxiety. The patient has verbalized understanding of these risks, and is still wanting to undergo hyperbaric oxygen therapy. The patient understands the significant time and transportation commitment involved in daily treatments of up to two hours duration and has stated that they are willing to commit to this therapy. - HBOT Diagnosis Rousseau III Diabetic Foot/Toe Ulcer (707.15/250.8), -
[2020-02-20 11:00] LABS: Bedside Glucose 188 mg/dL (70-110)
[2020-02-20 11:08] VITALS: BP 112/67; BP 115/68; PULSE 70; PULSE 87; RESP 16; RESP 18; TEMP 36; TEMP 36.6
--- NOTE | 2020-02-20 12:11 | HBO.PN.PCM_ITS ---
History of Present Illness Date of Service: 02/20/20 Presenting Chief Complaint: Recent frostbite right long finger with nonhealing necrotic ulcer. RICK GEORGE Jr. is a 59 year old currently undergoing hyperbaric oxygen therapy for left plantar Rousseau grade 3 diabetic foot ulcer. Progress: Today represents 33nd hyperbaric oxygen treatment of 40 planned treatments. Tolerance of hyperbaric oxygen therapy: Hyperbaric oxygen treatment was provided as per the facility's protocol at 2.0 VINNY and 100% oxygen for 90 minutes. The patient tolerated hyperbaric oxygen well, without complications or complaints. Upon emergence of the hyperbaric chamber the patient's vital signs remained stable. The patient did have bilateral tympanostomy tubes placed on 12/20/2019. Pre-and post blood glucose levels as documented. Past Medical History Chronic Problems (Last Updated 01/09/20 @ 13:[address] 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) Allergies/Adverse Reactions: Allergies atorvastatin Adverse Reaction (Verified 08/23/19 12:36) Unknown metformin Adverse Reaction (Verified 08/23/19 12:36) Diarrhea Home Medications: Ambulatory Orders Medication Instructions Recorded Ammonium Lactate [Amlactin] 57 gm TP PRN PRN 10/04/17 Celecoxib [Celebrex] 200 mg PO DAILY 10/04/17 Cholecalciferol (Vitamin D3) 5,000 unit PO DAILY 10/04/17 [Vitamin D3] Levomefolate/B6/B12/Algal Oil 1 ea PO DAILY 10/04/17 [Metanx Capsule] Nortriptyline HCl 50 mg PO QHS 10/04/17 Biotin 1 mg PO DAILY 04/01/18 Desonide 0.05% [Desowen 0.05% 1 applic TOPICAL BID 04/01/18 Cream] Diflorasone Diacetate [Psorcon] 1 applicatio TP BID PRN 04/01/18 Insulin Glargine,Hum.rec.anlog 20 unit SQ QHS 04/01/18 [Basaglar Kwikpen U-100] Insulin Lispro [Humalog KwikPen] See Protocol SQ TIDCM 04/01/18 Ketoconazole [Nizoral] 1 applic TOPICAL DAILY PRN 04/01/18 Magnesium 250 mg PO DAILY 04/01/18 metoprolol tartrate 25 mg tablet 12.5 mg PO BID tab MDD 1.5 tabs 07/19/18 albuterol sulfate 90 mcg/actuation 2 puff INHALATION Q4H PRN g 08/13/19 aerosol inhaler amlodipine 10 mg tablet 10 mg PO DAILY 08/13/19 becaplermin 0.01 % topical gel 1 applic TOPICAL DAILY 08/13/19 cetirizine 10 mg tablet 10 mg PO DAILY 08/13/19 gabapentin 300 mg capsule 900 mg PO TID cap 08/13/19 nifedipine 30 mg tablet,extended 30 mg PO DAILY 08/13/19 release simvastatin 10 mg tablet 10 mg PO QHS 08/13/19 vardenafil 20 mg tablet 20 mg PO DAILY PRN 08/13/19 Cyanocobalamin [Vitamin B12] 1,000 mcg IM Q30D 08/22/19 aspirin 81 mg tablet,delayed 162 mg PO DAILY tab MDD . 10/12/19 release baclofen 20 mg tablet 30 mg PO TID tab 10/12/19 cephalexin 500 mg capsule 500 mg PO Q6H cap 10/12/19 famotidine 20 mg tablet 20 mg PO DAILY PRN 10/12/19 furosemide 20 mg tablet 20 mg PO BID PRN tab 10/12/19 lisinopril 5 mg tablet 5 mg PO QDAY #30 tab 01/28/20 Maternal Family History: Family History (Last Reviewed 10/18/19 @ 11:24 by Linda Leon) Other Arthritis Hypertension Family History: Diabetes Paternal Family History: Family History (Last Reviewed 10/18/19 @ 11:24 by Linda Leon) Other Arthritis Hypertension Family History: Diabetes Smoking Status: Current every day smoker Physical Exam Vital Signs Temp Pulse Resp BP Pulse Ox 96.8 F L 87 18 115/68 100 02/20/20 11:08 02/20/20 11:08 02/20/20 11:08 02/20/20 11:08 02/15/20 00:13 Assessment/Plan Active Problems (Last Updated 01/09/20 @ 13:[address] Lio Bishop MD) History of frostbite (Chronic) left long finger, right index finger, right long finger, and right ring fin sagar Raynaud disease (Chronic) Delayed wound healing (Chronic) Skin ulcer of finger with fat layer exposed (Chronic) necrotic ulcer dorsum right long finger at DIP joint Diabetes mellitus type 2 with complications (Chronic) The patient tolerated the Hyperbaric oxygen treatment well, which will be continued as per his medical plan.
[2020-02-20 13:20] VITALS: BMI 28.7
[2020-02-20 13:36] LABS: Bedside Glucose 146 mg/dL (70-110)
--- NOTE | 2020-02-20 14:38 | PCM.WC.PN ---
(1) Non-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ulcer of other part of right foot with fat layer exposed Status: Chronic Current Visit: Yes Code(s): L97.512 - Non-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ulcer of other part of right foot with fat layer exposed (2) Hammertoe of right foot Status: Chronic Current Visit: Yes Code(s): M20.41 - Other hammer toe(s) (acquired), right foot (3) Raynaud disease Status: Chronic Current Visit: Yes Code(s): I73.00 - Raynaud's syndrome without gangrene (4) Diabetic ulcer of left foot with muscle involvement without evidence of necrosis Status: Chronic Current Visit: Yes Qualifiers: Diabetic foot ulcer location: midfoot Diabetes mellitus type: type 2 Qualified Code(s): E11.621 - Type 2 diabetes mellitus with foot ulcer; L97.425 - Non-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ulcer of left heel and midfoot with muscle involvement without evidence of necrosis Code(s): E11.621 - Type 2 diabetes mellitus with foot ulcer; L97.525 - Non-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ulcer of other part of left foot with muscle involvement without evidence of necrosis (5) Delayed wound healing Status: Chronic Current Visit: Yes Code(s): T14.8XXD - Other injury of unspecified body region, subsequent encounter (6) Type 2 diabetes mellitus with diabetic polyneuropathy Status: Chronic Current Visit: Yes Code(s): E11.42 - Type 2 diabetes mellitus with diabetic polyneuropathy (7) Chronic ulcer of left foot with necrosis of muscle Status: Chronic Current Visit: Yes Code(s): L97.523 - Non-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ulcer of other part of left foot with necrosis of muscle (8) Chronic ulcer of great toe of left foot with fat layer exposed Status: Chronic Current Visit: Yes Code(s): L97.522 - Non-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ulcer of other part of left foot with fat layer exposed (9) Chronic ulcer of left foot with necrosis of muscle Status: Chronic Current Visit: Yes Code(s): L97.523 - Non-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ulcer of other part of left foot with necrosis of muscle Comment: capsular layer is in the wound bed. grade 3 treated medically Type of Wound Date of Service: 02/20/20 Chief Complaint: Right fifth toe ulcer and left anterior foot ulcer History of Wound: This 59-year-old male presents for follow-up of chronic left and right foot ulcer sites. He continues to undergo hyperbaric oxygen therapy due to the grade 3 status of the left foot. He has tolerated this well. He denies fever, chill, nausea, vomiting, odor or redness. He also kept his total contact cast to left foot intact until it was noted he had some left leg irritation. The total contact cast was removed at the end of last week. He denies drainage, redness, or odor from the site. He also follows up today for his more recent right fifth toe ulcer site. He is also been performing daily dressing changes with his right foot ulcer and obtained a surgical shoe. It is noted he is being seen for a right hand finger ulcer with infection by other wound care center providers. Progress of Wound: Improving left foot. Improving right foot - Physical Exam Vital Signs Temp Pulse Resp BP Pulse Ox 96.8 F L 87 18 115/68 100 02/20/20 11:08 02/20/20 11:08 02/20/20 11:08 02/20/20 11:08 02/15/20 00:13 General: Alert, Oriented x3, Cooperative, No apparent distress HEENT: Atraumatic Extremities: No cyanosis, Capillary Refill Less than 3 Seconds, No Calf Tenderness - Negative Ashanti and [place] sign bilateral, Diminished Peripheral Pulses, Edema - Mild, - - Digital deformities noted right foot amputations noted Skin: Ulcer/ Wound - No purulence, erythema, string, odor, infection. No deep tissue exposure, eschar, or necrosis noted. There is peripheral epithelialization noted at the ulcer sites. His adjacent skin is hairless and atrophic. Wound Measurements and Assessment - Nurse 1 - General Ulcer Measurement Start: 02/15/20 14:12 Freq: Status: Active Protocol: Activity Type Activity Date Activity User E-Sign Co-Sign Detail Recorded Client Recorded Date Recorded By Document 02/18/20 09:12 MARJORIE [id number] 02/18/20 09:14 JF Document 02/20/20 13:20 PL [id number] 02/20/20 13:33 PL 02/18/20 02/20/20 09:12 13:20 Wound Center Nurse 1 [Ulcer Assessment] 14-right 5th toe -Combined with other wound No -Current Size (cm) - Length 0.2 -Current Size (cm) - Width 0.3 -Current Size (cm) - Depth 0.1 -Total Square Cm 0.06 -Photo Taken No -Epithelialization None Present -Tunneling No -Undermining/Tunneling No -Exudate Amt None Present -Granulation Amt Large (67-100%) -Granulation Quality [place] -Slough/Fibrin Yes -Necrosis Amt Small (1-33%) -Color (Mechelle-wound Skin Appearance) No Abnormality -Temperature ([place]le-wound Skin No Abnormality Appearance) (Pt Warm) -Ulcer Cleansing Rinsed/ Irrigated with Saline -Foul Odor after Cleansing No #13 R 2nd finger -Combined with other wound No -Current Size (cm) - Length 0.3 -Current Size (cm) - Width 0.8 -Current Size (cm) - Depth 0.2 -Total Square Cm 0.24 -Photo Taken No -Epithelialization Medium 34-66% -Tunneling No -Undermining/Tunneling No -Circular Undermining No -Exudate Amt Small -Exudate Type Serosanguineous -Wound Margin Flat & Intact -Granulation Amt Medium (34-66%) -Granulation Quality Red -Slough/Fibrin Yes -Necrosis Amt Medium (34-66%) -Necrotic Tissue Type Adherent Slough -Structure Exposed N/A -Texture (M[place]helle-wound Skin Appearance) Assessed -Moisture ([place]helle-wound Skin Appearance Assessed,Dry/ ) Scaly -Color ([place]helle-wound Skin Appearance) Assessed -Temperature ([place]le-wound Skin No Abnormality Appearance) (Pt Warm) -Tenderness on Palpation ([place]helle-wound No Skin Appearance) -Ulcer Cleansing Rinsed/ Irrigated with Saline -Foul Odor after Cleansing No -Anesthetic Used 5% Lidocaine Gel 11. L plantar -Current Size (cm) - Length 0.4 -Current Size (cm) - Width 0.5 -Current Size (cm) - Depth 0.1 -Total Square Cm 0.20 -Photo Taken No -Epithelialization None Present -Tunneling No -Undermining/Tunneling No -Exudate Amt Small -Exudate Type Serosanguineous -Granulation Amt Large (67-100%) -Granulation Quality [place] -Necrosis Amt Small (1-33%) -Necrotic Tissue Type Adherent Slough -Texture ([place]helle-wound Skin Appearance) Callus -Temperature ([place]le-wound Skin No Abnormality Appearance) (Pt Warm) -Tenderness on Palpation ([place]helle-wound No Skin Appearance) -Ulcer Cleansing Rinsed/ Irrigated with Saline -Foul Odor after Cleansing No [Edema Assessment] -Lower Limb Edema Present NA WC - Nurse 2 - General Ulcer CM Notes Start: 02/15/20 14:12 Freq: Status: Active Protocol: Activity Type Activity Date Activity User E-Sign Co-Sign Detail Recorded Client Recorded Date Recorded By Document 02/18/20 09:39 JF [id number] 02/18/20 09:45 JF Document 02/20/20 09:58 MW [id number] 02/20/20 10:15 MW Document 02/20/20 13:51 JF [id number] 02/20/20 13:58 JF 02/18/20 02/20/20 02/20/20 09:39 09:58 13:51 Wound Center Nurse 2 [Procedure/Treatment] 14-right 5th toe -Time 13:51 -Correct Patient Yes -Correct Side, Site, Position Yes -Correct Procedure Yes -Procedure Performed Yes -Type of Procedure Debridement -Clinical Debridement Subcutaneous -Post Debridement Size (cm) - Length 0.1 -Post Debridement Size (cm) - Width 0.2 -Post Debridement Size (cm) - Depth 0.1 -Total Square Cm 0.02 -Wound/Ulcer Outcome Not Healed -Ulcer Cleansing Rinsed/ Irrigated with Saline -Foul Odor after Cleansing No -Bioengineered Tissue No -Type of bioengineered Tissue EPIFIX -Expiration Date 11/17/24 -Product Lot Number [id number] -Percent Used 100 -Saline Lot Number [id number] -Bleeding Controlled with Pressure -Offloading Yes -Type of Offloading Surgical Shoe -Treatment Response Procedure Tolerated Well #13 R 2nd finger -Time 09:39 10:11 -Correct Patient Yes Yes -Correct Side, Site, Position Yes Yes -Correct Procedure Yes Yes -Procedure Performed Yes Yes -Type of Procedure Debridement Debridement -Clinical Debridement Subcutaneous Subcutaneous -Post Debridement Size (cm) - Length 0.7 0.3 -Post Debridement Size (cm) - Width 1.3 0.7 -Post Debridement Size (cm) - Depth 0.2 0.2 -Total Square Cm 0.91 0.21 -Wound/Ulcer Outcome Not Healed Not Healed -Ulcer Cleansing Rinsed/ Rinsed/ Irrigated with Irrigated with Saline Saline -Foul Odor after Cleansing No No -Bioengineered Tissue No No -Bleeding Controlled with Pressure Pressure -Offloading No No -Treatment Response Procedure Procedure Tolerated Well Tolerated Well 11. L plantar -Time 13:52 -Correct Patient Yes -Correct Side, Site, Position Yes -Correct Procedure Yes -Procedure Performed Yes -Type of Procedure Debridement -Clinical Debridement Subcutaneous -Post Debridement Size (cm) - Length 0.5 -Post Debridement Size (cm) - Width 0.5 -Post Debridement Size (cm) - Depth 0.2 -Total Square Cm 0.25 -Wound/Ulcer Outcome Not Healed -Ulcer Cleansing Rinsed/ Irrigated with Saline -Foul Odor after Cleansing No -Bioengineered Tissue Yes -Type of bioengineered Tissue EPIFIX -Expiration Date 11/17/24 -Product Lot Number [id number] -Percent Used 100 -Saline Lot Number [id number] -Bleeding Controlled with Pressure -Offloading Yes -Type of Offloading Total Contact Cast (TCC) -Treatment Response Procedure Tolerated Well [See Physician Procedure note for Specifics] Pain Scale: 0-10 Numeric [Pain] -Is Patient Pain Free? Yes Yes Musculoskeletal: No Tenderness to Palpation of Joints or Extremities, Muscle Wasting Neurological: - - Lack of normal epicritic sensation light touch is consistent with neuropathy status Psych/Mental Status: Normal Affect, Appropriate Debridement Note Post-Debridement Measurements/Treatment WC - Nurse 2 - General Ulcer CM Notes Start: 02/15/20 14:12 Freq: Status: Active Protocol: Activity Type Activity Date Activity User E-Sign Co-Sign Detail Recorded Client Recorded Date Recorded By Document 02/18/20 09:39 [id number] 02/18/20 09:45 JF Document 02/20/20 09:58 MW [id number] 02/20/20 10:15 MW Document 02/20/20 13:51 [id number] 02/20/20 13:58 02/18/20 02/20/20 02/20/20 09:39 09:58 13:51 Wound Center Nurse 2 14-right 5th toe -Time 13:51 -Correct Patient Yes -Correct Side, Site, Position Yes -Correct Procedure Yes -Procedure Performed Yes -Type of Procedure Debridement -Clinical Debridement Subcutaneous -Post Debridement Size (cm) - Length 0.1 -Post Debridement Size (cm) - Width 0.2 -Post Debridement Size (cm) - Depth 0.1 -Total Square Cm 0.02 -Wound/Ulcer Outcome Not Healed -Ulcer Cleansing Rinsed/ Irrigated with Saline -Foul Odor after Cleansing No -Bioengineered Tissue No -Type of bioengineered Tissue EPIFIX -Expiration Date 11/17/24 -Product Lot Number [id number] -Percent Used 100 -Saline Lot Number [id number] -Bleeding Controlled with Pressure -Offloading Yes -Type of Offloading Surgical Shoe -Treatment Response Procedure Tolerated Well #13 R 2nd finger -Time 09:39 10:11 -Correct Patient Yes Yes -Correct Side, Site, Position Yes Yes -Correct Procedure Yes Yes -Procedure Performed Yes Yes -Type of Procedure Debridement Debridement -Clinical Debridement Subcutaneous Subcutaneous -Post Debridement Size (cm) - Length 0.7 0.3 -Post Debridement Size (cm) - Width 1.3 0.7 -Post Debridement Size (cm) - Depth 0.2 0.2 -Total Square Cm 0.91 0.21 -Wound/Ulcer Outcome Not Healed Not Healed -Ulcer Cleansing Rinsed/ Rinsed/ Irrigated with Irrigated with Saline Saline -Foul Odor after Cleansing No No -Bioengineered Tissue No No -Bleeding Controlled with Pressure Pressure -Offloading No No -Treatment Response Procedure Procedure Tolerated Well Tolerated Well 11. L plantar -Time 13:52 -Correct Patient Yes -Correct Side, Site, Position Yes -Correct Procedure Yes -Procedure Performed Yes -Type of Procedure Debridement -Clinical Debridement Subcutaneous -Post Debridement Size (cm) - Length 0.5 -Post Debridement Size (cm) - Width 0.5 -Post Debridement Size (cm) - Depth 0.2 -Total Square Cm 0.25 -Wound/Ulcer Outcome Not Healed -Ulcer Cleansing Rinsed/ Irrigated with Saline -Foul Odor after Cleansing No -Bioengineered Tissue Yes -Type of bioengineered Tissue EPIFIX -Expiration Date 11/17/24 -Product Lot Number [id number] -Percent Used 100 -Saline Lot Number [id number] -Bleeding Controlled with Pressure -Offloading Yes -Type of Offloading Total Contact Cast (TCC) -Treatment Response Procedure Tolerated Well Pain Scale: 0-10 Numeric Is Patient Pain Free? Yes Yes Wound debrided: 5th toe Laterality: Right Wound Grade/Stage: grade 1 Type of Debridement: Excisional debridement Anesthesia Used: 5% Lidocaine Gel Depth: in the subcutaneous layer Percentage of wound debrided: 100 Instrument Used: #15 blade Tissue Removed: fibrous, devitalized subcutaneous, biofilm, slough Severity: Fat Layer Exposed Amount of bleeding with debridement: Mild Bleeding Controlled with: Pressure Patient tolerated procedure well - Additional Wound Wound debrided: sub metatarsal head Laterality: Left Wound Grade/Stage: grade 3 Type of Debridement: Excisional debridement Anesthesia Used: 5% Lidocaine Gel Depth: in the subcutaneous layer Percentage of wound debrided: 100 Instrument Used: #15 blade Tissue Removed: fibrous, devitalized subcutaneous, biofilm, slough Severity: Fat Layer Exposed Amount of bleeding with debridement: Mild Bleeding Controlled with: Pressure Patient tolerated procedure: Patient tolerated procedure well Assessment/Plan Active Problems (Last Updated 01/09/20 @ 13:[address] 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 grade 3 treated medically Delayed wound healing (Chronic) Type 2 diabetes mellitus with diabetic polyneuropathy (Chronic) Skin ulcer of finger with fat layer exposed (Chronic) necrotic ulcer dorsum right long finger at DIP joint Diabetes mellitus type 2 with complications (Chronic) Assessment: Left foot ulcer with capsule/muscle tissue exposed, Rousseau grade 3 treated for infection/bacterial colonization. Left foot deformities including tailor bunion and hammertoe. Peripheral vascular disease. Diabetes with polyneuropathy. Malnutrition. Delayed healing. Raynaud's disease. Finger ulcer management by additional wound care center provider(s) Plan: I reviewed and discussed his case today. Subcutaneous excisional debridement was performed as noted in the clinical panel to the left foot and right foot. I recommend application of advanced wound healing product today, epi-fix. This is medically necessary for limb salvage. He understands the indications, planned application, anticipated healing time and management. This was applied again today after verbal consent was obtained according standard protocol. This was secured with a wound veil and Steri-Strips. He was advised to keep this clean, dry, intact until follow-up next week. He tolerated this well. This is medically necessary for limb salvage. To continue proper glycemic control nutritional supplementation optimize healing. Is noted his last hemoglobin A1c we have on file here is 5.9%. He was advised to follow-up with his vascular surgeon, Dr. Pena as scheduled. He had recent updated vascular studies performed and Dr. Pena is considering additional intervention. I recommend proceeding if there are options available. Osteomyelitis signs were not apparent on the MRI and this will be monitored very closely. Compliance was discussed. He was reassured there are no local signs of infection on the foot today. I answered his questions. He had prior capsule muscle tissue exposed and that further was infected per his culture results which would qualify and is awaiting grade 3. Hyperbaric oxygen therapy is an option for him and he was advised to continue. He is demonstrating improvement and is at continued limb loss risk if he were to stop. An additional 20 sessions is recommended. He was seen for an updated prescription renewal today by provider Rivka Duarte, clinical nurse practitioner, which is greatly appreciated. He has been doing well. Additionally, a well-padded total contact cast was applied with the lower extremity in a rectus position. To monitor for irritation. He is reassured no infection, wound, bruising, or blistering is noted as a result from his cast irritation last week. To avoid excessive activity with the cast and to monitor for return of these symptoms. Verbal consent was obtained and he tolerated this well. He was advised the this clean, dry, and intact until follow-up next week. He denies being claustrophobic. Improved offloading was discussed also he is amendable to proceed with a total contact cast. Verbal consent was obtained and this was applied according standard protocol in a neutral position and also well-padded. He tolerated this well. he was advised to keep this clean, dry, and intact until follow-up next week. His more recent right fifth toe ulcer site is noted and he was advised to keep pressure off of this site. To change dressing daily with Aquacel Ag. He was reassured no signs of infection are noted. To return to the wound healing center in 1 week or call sooner if he has any questions or concerns.
--- NOTE | 2020-02-21 10:09 | HBO.PN.PCM_ITS ---
History of Present Illness Date of Service: 02/21/20 Presenting Chief Complaint: Right fifth toe ulcer and left anterior foot ulcer RICK GEORGE Jr. is a 59 year old currently undergoing hyperbaric oxygen therapy for left plantar Rousseau grade 3 diabetic foot ulcer. Progress: Today represents 34th hyperbaric oxygen treatment of 40 planned treatments. Tolerance of hyperbaric oxygen therapy: Hyperbaric oxygen treatment was provided as per the facility's protocol at 2.0 VINNY and 100% oxygen for 90 minutes. The patient tolerated hyperbaric oxygen well, without complications or complaints. Upon emergence of the hyperbaric chamber the patient's vital signs remained stable. The patient did have bilateral tympanostomy tubes placed on 12/20/2019. Pre-and post blood glucose levels as documented. Past Medical History Chronic Problems (Last Updated 01/09/20 @ 13:[address] 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) Chronic ulcer of great toe of left foot with fat layer exposed (Chronic) Non-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ulcer of other part of right foot with fat layer exposed (Chronic) Hammertoe of right foot (Chronic) History of frostbite (Chronic) left long finger, right index finger, right long finger, and right ring finger Skin necrosis (Chronic) dorsum right long finger at DIP joint Tobacco abuse (Chronic) Raynaud disease (Chronic) Tinea unguium (Chronic) Other hereditary and idiopathic neuropathies (Chronic) Diabetic ulcer of left foot with muscle involvement without evidence of necrosis (Chronic) 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) Allergies/Adverse Reactions: Allergies atorvastatin Adverse Reaction (Verified 08/23/19 12:36) Unknown metformin Adverse Reaction (Verified 08/23/19 12:36) Diarrhea Home Medications: Ambulatory Orders Medication Instructions Recorded Ammonium Lactate [Amlactin] 57 gm TP PRN PRN 10/04/17 Celecoxib [Celebrex] 200 mg PO DAILY 10/04/17 Cholecalciferol (Vitamin D3) 5,000 unit PO DAILY 10/04/17 [Vitamin D3] Levomefolate/B6/B12/Algal Oil 1 ea PO DAILY 10/04/17 [Metanx Capsule] Nortriptyline HCl 50 mg PO QHS 10/04/17 Biotin 1 mg PO DAILY 04/01/18 Desonide 0.05% [Desowen 0.05% 1 applic TOPICAL BID 04/01/18 Cream] Diflorasone Diacetate [Psorcon] 1 applicatio TP BID PRN 04/01/18 Insulin Glargine,Hum.rec.anlog 20 unit SQ QHS 04/01/18 [Basaglar Kwikpen U-100] Insulin Lispro [Humalog KwikPen] See Protocol SQ TIDCM 04/01/18 Ketoconazole [Nizoral] 1 applic TOPICAL DAILY PRN 04/01/18 Magnesium 250 mg PO DAILY 04/01/18 metoprolol tartrate 25 mg tablet 12.5 mg PO BID tab MDD 1.5 tabs 07/19/18 albuterol sulfate 90 mcg/actuation 2 puff INHALATION Q4H PRN g 08/13/19 aerosol inhaler amlodipine 10 mg tablet 10 mg PO DAILY 08/13/19 becaplermin 0.01 % topical gel 1 applic TOPICAL DAILY 08/13/19 cetirizine 10 mg tablet 10 mg PO DAILY 08/13/19 gabapentin 300 mg capsule 900 mg PO TID cap 08/13/19 nifedipine 30 mg tablet,extended 30 mg PO DAILY 08/13/19 release simvastatin 10 mg tablet 10 mg PO QHS 08/13/19 vardenafil 20 mg tablet 20 mg PO DAILY PRN 08/13/19 Cyanocobalamin [Vitamin B12] 1,000 mcg IM Q30D 08/22/19 aspirin 81 mg tablet,delayed 162 mg PO DAILY tab MDD . 10/12/19 release baclofen 20 mg tablet 30 mg PO TID tab 10/12/19 cephalexin 500 mg capsule 500 mg PO Q6H cap 10/12/19 famotidine 20 mg tablet 20 mg PO DAILY PRN 10/12/19 furosemide 20 mg tablet 20 mg PO BID PRN tab 10/12/19 lisinopril 5 mg tablet 5 mg PO QDAY #30 tab 01/28/20 Maternal Family History: Family History (Last Reviewed 10/18/19 @ 11:24 by Linda Leon) Other Arthritis Hypertension Family History: Diabetes Paternal Family History: Family History (Last Reviewed 10/18/19 @ 11:24 by Linda Leon) Other Arthritis Hypertension Family History: Diabetes Smoking Status: Current every day smoker Physical Exam Vital Signs Temp Pulse Resp BP Pulse Ox 96.8 F L 87 18 115/68 100 02/20/20 11:08 02/20/20 11:08 02/20/20 11:08 02/20/20 11:08 02/15/20 00:13 General: Alert, Oriented x3, Cooperative, No apparent distress HEENT: Atraumatic, Normocephalic Lungs: Normal air movement Psych/Mental Status: Normal Affect Assessment/Plan Active Problems (Last Updated 01/09/20 @ 13:[address] 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 grade 3 treated medically Delayed wound healing (Chronic) Type 2 diabetes mellitus with diabetic polyneuropathy (Chronic) Skin ulcer of finger with fat layer exposed (Chronic) necrotic ulcer dorsum right long finger at DIP joint Diabetes mellitus type 2 with complications (Chronic) The patient tolerated the Hyperbaric oxygen treatment well, which will be continued as per his medical plan. HBO supervision
[2020-02-21 10:41] VITALS: BP 101/67; PULSE 92; RESP 18; TEMP 36.8
[2020-02-21 10:41] LABS: Bedside Glucose 153 mg/dL (70-110)
[2020-02-21 12:55] LABS: Bedside Glucose 176 mg/dL (70-110)
[2020-02-21 14:00] VITALS: BP 101/67; BP 111/62; PULSE 76; PULSE 92; RESP 18; TEMP 36.6; TEMP 36.8
[2020-02-22 11:20] LABS: Bedside Glucose 192 mg/dL (70-110)
[2020-02-22 13:31] LABS: Bedside Glucose 160 mg/dL (70-110)
[2020-02-22 15:49] VITALS: BP 106/60; BP 127/63; PULSE 71; PULSE 81; RESP 18; TEMP 36.3; TEMP 36.6
--- NOTE | 2020-02-22 18:39 | PCM.HBO.PN ---
History of Present Illness Date of Service: 02/22/20 Presenting Chief Complaint: Right fifth toe ulcer and left anterior foot ulcer RICK GEORGE Jr. is a 59 year old currently undergoing hyperbaric oxygen therapy for left plantar Rousseau grade 3 diabetic foot ulcer. Progress: Today represents 35th hyperbaric oxygen treatment of 40 planned treatments. Tolerance of hyperbaric oxygen therapy: Hyperbaric oxygen treatment was provided as per the facility's protocol at 2.0 VINNY and 100% oxygen for 90 minutes. The patient tolerated hyperbaric oxygen well, without complications or complaints. Upon emergence of the hyperbaric chamber the patient's vital signs remained stable. The patient did have bilateral tympanostomy tubes placed on 12/20/2019. Pre-and post blood glucose levels as documented in nursing notes. Past Medical History Chronic Problems (Last Updated 01/09/20 @ 13:[address] 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) Chronic ulcer of great toe of left foot with fat layer exposed (Chronic) Non-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ulcer of other part of right foot with fat layer exposed (Chronic) Hammertoe of right foot (Chronic) History of frostbite (Chronic) left long finger, right index finger, right long finger, and right ring finger Skin necrosis (Chronic) dorsum right long finger at DIP joint Tobacco abuse (Chronic) Raynaud disease (Chronic) Tinea unguium (Chronic) Other hereditary and idiopathic neuropathies (Chronic) Diabetic ulcer of left foot with muscle involvement without evidence of necrosis (Chronic) 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 Zhu of [facility] Essential (primary) hypertension (Chronic) Other specified peripheral vascular diseases (Chronic) Skin ulcer of finger with fat layer exposed (Chronic) necrotic ulcer dorsum right long finger at DIP joint 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) Allergies/Adverse Reactions: Allergies atorvastatin Adverse Reaction (Verified 08/23/19 12:36) Unknown metformin Adverse Reaction (Verified 08/23/19 12:36) Diarrhea Home Medications: Ambulatory Orders Medication Instructions Recorded Ammonium Lactate [Amlactin] 57 gm TP PRN PRN 10/04/17 Celecoxib [Celebrex] 200 mg PO DAILY 10/04/17 Cholecalciferol (Vitamin D3) 5,000 unit PO DAILY 10/04/17 [Vitamin D3] Levomefolate/B6/B12/Algal Oil 1 ea PO DAILY 10/04/17 [Metanx Capsule] Nortriptyline HCl 50 mg PO QHS 10/04/17 Biotin 1 mg PO DAILY 04/01/18 Desonide 0.05% [Desowen 0.05% 1 applic TOPICAL BID 04/01/18 Cream] Diflorasone Diacetate [Psorcon] 1 applicatio TP BID PRN 04/01/18 Insulin Glargine,Hum.rec.anlog 20 unit SQ QHS 04/01/18 [Basaglar Kwikpen U-100] Insulin Lispro [Humalog KwikPen] See Protocol SQ TIDCM 04/01/18 Ketoconazole [Nizoral] 1 applic TOPICAL DAILY PRN 04/01/18 Magnesium 250 mg PO DAILY 04/01/18 metoprolol tartrate 25 mg tablet 12.5 mg PO BID tab MDD 1.5 tabs 07/19/18 albuterol sulfate 90 mcg/actuation 2 puff INHALATION Q4H PRN g 08/13/19 aerosol inhaler amlodipine 10 mg tablet 10 mg PO DAILY 08/13/19 becaplermin 0.01 % topical gel 1 applic TOPICAL DAILY 08/13/19 cetirizine 10 mg tablet 10 mg PO DAILY 08/13/19 gabapentin 300 mg capsule 900 mg PO TID cap 08/13/19 nifedipine 30 mg tablet,extended 30 mg PO DAILY 08/13/19 release simvastatin 10 mg tablet 10 mg PO QHS 08/13/19 vardenafil 20 mg tablet 20 mg PO DAILY PRN 08/13/19 Cyanocobalamin [Vitamin B12] 1,000 mcg IM Q30D 08/22/19 aspirin 81 mg tablet,delayed 162 mg PO DAILY tab MDD . 10/12/19 release baclofen 20 mg tablet 30 mg PO TID tab 10/12/19 cephalexin 500 mg capsule 500 mg PO Q6H cap 10/12/19 famotidine 20 mg tablet 20 mg PO DAILY PRN 10/12/19 furosemide 20 mg tablet 20 mg PO BID PRN tab 10/12/19 lisinopril 5 mg tablet 5 mg PO QDAY #30 tab 01/28/20 Maternal Family History: Family History (Last Reviewed 10/18/19 @ 11:24 by Linda Leon) Other Arthritis Hypertension Family History: Diabetes Paternal Family History: Family History (Last Reviewed 10/18/19 @ 11:24 by Linda Leon) Other Arthritis Hypertension Family History: Diabetes Smoking Status: Current every day smoker Physical Exam Vital Signs Temp Pulse Resp BP Pulse Ox 97.3 F L 81 18 127/63 H 100 02/22/20 15:49 02/22/20 15:49 02/22/20 15:49 02/22/20 15:49 02/15/20 00:13 General: Alert, Oriented x3, Cooperative, No apparent distress Psych/Mental Status: Normal Affect, Appropriate Assessment/Plan Active Problems (Last Updated 01/09/20 @ 13:[address] 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 grade 3 treated medically Delayed wound healing (Chronic) Type 2 diabetes mellitus with diabetic polyneuropathy (Chronic) Skin ulcer of finger with fat layer exposed (Chronic) necrotic ulcer dorsum right long finger at DIP joint Diabetes mellitus type 2 with complications (Chronic) The patient tolerated the Hyperbaric oxygen treatment well, which will be continued as per his medical plan.
[2020-02-25 09:14] VITALS: BP 130/73; PULSE 74; RESP 20; TEMP 36.9; BMI 28.7
[2020-02-25 09:56] LABS: Bedside Glucose 178 mg/dL (70-110)
[2020-02-25 10:29] VITALS: BP 130/73; PULSE 74; RESP 20; TEMP 36.9
[2020-02-25 13:01] LABS: Bedside Glucose 138 mg/dL (70-110)
--- NOTE | 2020-02-25 13:09 | PN.PCM_ITS ---
(1) Skin ulcer of finger with fat layer exposed Status: Chronic Current Visit: Yes Code(s): L98.492 - Non-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ulcer of skin of other sites with fat layer exposed Comment: necrotic ulcer dorsum right long finger at DIP joint (2) Delayed wound healing Status: Chronic Current Visit: Yes Code(s): T14.8XXD - Other injury of unspecified body region, subsequent encounter (3) Raynaud disease Status: Chronic Current Visit: Yes Code(s): I73.00 - Raynaud's syndrome with out gangrene (4) History of frostbite Status: Chronic Current Visit: Yes Code(s): Z91.89 - Other specified personal risk factors, not elsewhere classified Comment: left long finger, right index finger, right long finger, and right ring finger (5) Peripheral vascular disease Status: Chronic Current Visit: Yes Code(s): I73.9 - Peripheral vascular disease, unspecified (6) Diabetes mellitus type 2 with complications Status: Chronic Current Visit: Yes Code(s): E11.8 - Type 2 diabetes mellitus with unspecified complications Type of Wound Date of Service: 02/25/20 Chief Complaint: Recent frostbite right long finger with nonhealing necrotic ulcer. History of Wound: 59-year-old man with a history of diabetes who is presently being seen for a left diabetic foot ulcer has some skin necrosis on the dorsum right long finger at the DIP joint. He sustained frostbite back on October 03, 2019 involving his left long finger, right index finger, right long finger, and right ring finger. He was seen at [facility]. After careful observation to look for areas of demarcation, all the fingers survived with the exception of some skin necrosis on the right long finger. He became concerned recently because of increased pain and drainage from the eschar. Patient is right hand dominant. A wound culture from 01/07/20 was positive for Staphylococcus aureas. He has been placed on Doxycycline for this. Wound care to right long finger will stop the moistened Tegan and start Collagen hydrogel with adaptic covered by gauze and using coband to hold in place daily. Today denies any fevers. Patient states he has a good appetite. Progress of Wound: Developed increased pain, swelling and redness with pain radiating up his wrist, elbow and axilla. The redness was extending towards his wrist. He was seen by Rivka Benites and she cultured the wound and started him on Levaquin. He has increased biofilm of the right long finger today. His right long finger continues to red and swollen but no redness onto the dorsal portion of the hand. - Physical Exam Vital Signs Temp Pulse Resp BP Pulse Ox 98.4 F 74 20 H 130/73 H 100 02/25/20 10:29 02/25/20 10:29 02/25/20 10:02/25/20 10:02/15/20 00:13 General: Alert, Oriented x3, Cooperative HEENT: Atraumatic, TM's Clear - bilateral tubes intact Oral: Moist Mucosa Lungs: Normal air movement Cardiovascular: Regular rate Extremities: Edema - right long finger swelling and tenderness, Tenderness Skin: Ulcer/ Wound - Ulcer on dorsal aspect of right long finger Wound Measurements and Assessment WC - Nurse 1 - General Ulcer Measurement Start: 02/15/20 14:12 Freq: Status: Active Protocol: Activity Type Activity Date Activity User E-Sign Co-Sign Detail Recorded Client Recorded Date Recorded By Document 02/25/20 09:14 DL [id number] 02/25/20 09:24 DL 02/25/20 09:14 Wound Center Nurse 1 [Ulcer Assessment] #13 R 2nd finger -Current Size (cm) - Length 1.8 -Current Size (cm) - Width 1.4 -Current Size (cm) - Depth 0.1 -Total Square Cm 2.52 -Photo Taken No -Exudate Amt Small -Exudate Type Yellow/Green -Wound Margin Distinct, Outline Attached -Granulation Amt Large (67-100%) -Granulation Quality [place] -Necrosis Amt Small (1-33%) -Necrotic Tissue Type Adherent Slough -Structure Exposed N/A -Texture ([place]-wound Skin Appearance) Localized Edema ,Scarring -Moisture ([place]le-wound Skin Appearance Dry/Scaly ) -Color ([place]le-wound Skin Appearance) Erythema -Temperature ([place]-wound Skin No Abnormality Appearance) (Pt Warm) -Tenderness on Palpation ([place]-wound No Skin Appearance) -Ulcer Cleansing Wound Cleanser -Foul Odor after Cleansing No -Anesthetic Used 5% Lidocaine Gel WC - Nurse 2 - General Ulcer CM Notes Start: 02/15/20 14:12 Freq: Status: Active Protocol: Activity Type Activity Date Activity User E-Sign Co-Sign Detail Recorded Client Recorded Date Recorded By Document 02/25/20 09:40 [id number] 02/25/20 09:42 02/25/20 09:40 Wound Center Nurse 2 [Procedure/Treatment] -Time 09:40 -Correct Patient Yes -Correct Side, Site, Position Yes -Correct Procedure Yes -Procedure Performed Yes -Type of Procedure Debridement -Clinical Debridement Subcutaneous -Post Debridement Size (cm) - Length 0.6 -Post Debridement Size (cm) - Width 1.0 -Post Debridement Size (cm) - Depth 0.4 -Total Square Cm 0.60 -Wound/Ulcer Outcome Not Healed -Ulcer Cleansing Rinsed/ Irrigated with Saline -Foul Odor after Cleansing No -Bioengineered Tissue No -Bleeding Controlled with Pressure -Offloading No -Treatment Response Procedure Tolerated Well [See Physician Procedure note for Specifics] Pain Scale: 0-10 Numeric [Pain] -Is Patient Pain Free? Yes Musculoskeletal: Tenderness - right long finger Lymphatic: No Cervical, Supraclavicular, or Inguinal Adenopathy Neurological: Neuro grossly intact Psych/Mental Status: Normal Affect, Appropriate Debridement Note Post-Debridement Measurements/Treatment WC - Nurse 2 - General Ulcer CM Notes Start: 02/15/20 14:12 Freq: Status: Active Protocol: Activity Type Activity Date Activity User E-Sign Co-Sign Detail Recorded Client Recorded Date Recorded By Document 02/18/20 09:39 [id number] 02/18/20 09:45 Document 02/20/20 09:58 [id number] 02/20/20 10:15 Document 02/20/20 13:51 [id number] 02/20/20 13:58 Document 02/25/20 09:40 [id number] 02/25/20 09:42 02/18/20 02/20/20 02/20/20 09:39 09:58 13:51 Wound Center Nurse 2 14-right 5th toe -Time 13:51 -Correct Patient Yes -Correct Side, Site, Position Yes -Correct Procedure Yes -Procedure Performed Yes -Type of Procedure Debridement -Clinical Debridement Subcutaneous -Post Debridement Size (cm) - Length 0.1 -Post Debridement Size (cm) - Width 0.2 -Post Debridement Size (cm) - Depth 0.1 -Total Square Cm 0.02 -Wound/Ulcer Outcome Not Healed -Ulcer Cleansing Rinsed/ Irrigated with Saline -Foul Odor after Cleansing No -Bioengineered Tissue No -Type of bioengineered Tissue EPIFIX -Expiration Date 11/17/24 -Product Lot Number [id number] -Percent Used 100 -Saline Lot Number [id number] -Bleeding Controlled with Pressure -Offloading Yes -Type of Offloading Surgical Shoe -Treatment Response Procedure Tolerated Well #13 R 2nd finger -Time 09:39 10:11 -Correct Patient Yes Yes -Correct Side, Site, Position Yes Yes -Correct Procedure Yes Yes -Procedure Performed Yes Yes -Type of Procedure Debridement Debridement -Clinical Debridement Subcutaneous Subcutaneous -Post Debridement Size (cm) - Length 0.7 0.3 -Post Debridement Size (cm) - Width 1.3 0.7 -Post Debridement Size (cm) - Depth 0.2 0.2 -Total Square Cm 0.91 0.21 -Wound/Ulcer Outcome Not Healed Not Healed -Ulcer Cleansing Rinsed/ Rinsed/ Irrigated with Irrigated with Saline Saline -Foul Odor after Cleansing No No -Bioengineered Tissue No No -Bleeding Controlled with Pressure Pressure -Offloading No No -Treatment Response Procedure Procedure Tolerated Well Tolerated Well 11. L plantar -Time 13:52 -Correct Patient Yes -Correct Side, Site, Position Yes -Correct Procedure Yes -Procedure Performed Yes -Type of Procedure Debridement -Clinical Debridement Subcutaneous -Post Debridement Size (cm) - Length 0.5 -Post Debridement Size (cm) - Width 0.5 -Post Debridement Size (cm) - Depth 0.2 -Total Square Cm 0.25 -Wound/Ulcer Outcome Not Healed -Ulcer Cleansing Rinsed/ Irrigated with Saline -Foul Odor after Cleansing No -Bioengineered Tissue Yes -Type of bioengineered Tissue EPIFIX -Expiration Date 11/17/24 -Product Lot Number [id number] -Percent Used 100 -Saline Lot Number [id number] -Bleeding Controlled with Pressure -Offloading Yes -Type of Offloading Total Contact Cast (TCC) -Treatment Response Procedure Tolerated Well Pain Scale: 0-10 Numeric Is Patient Pain Free? Yes Yes 02/25/20 09:40 Wound Center Nurse 2 14-right 5th toe -Time -Correct Patient -Correct Side, Site, Position -Correct Procedure -Procedure Performed -Type of Procedure -Clinical Debridement -Post Debridement Size (cm) - Length -Post Debridement Size (cm) - Width -Post Debridement Size (cm) - Depth -Total Square Cm -Wound/Ulcer Outcome -Ulcer Cleansing -Foul Odor after Cleansing -Bioengineered Tissue -Type of bioengineered Tissue -Expiration Date -Product Lot Number -Percent Used -Saline Lot Number -Bleeding Controlled with -Offloading -Type of Offloading -Treatment Response #13 R 2nd finger -Time 09:40 -Correct Patient Yes -Correct Side, Site, Position Yes -Correct Procedure Yes -Procedure Performed Yes -Type of Procedure Debridement -Clinical Debridement Subcutaneous -Post Debridement Size (cm) - Length 0.6 -Post Debridement Size (cm) - Width 1.0 -Post Debridement Size (cm) - Depth 0.4 -Total Square Cm 0.60 -Wound/Ulcer Outcome Not Healed -Ulcer Cleansing Rinsed/ Irrigated with Saline -Foul Odor after Cleansing No -Bioengineered Tissue No -Bleeding Controlled with Pressure -Offloading No -Treatment Response Procedure Tolerated Well 11. L plantar -Time -Correct Patient -Correct Side, Site, Position -Correct Procedure -Procedure Performed -Type of Procedure -Clinical Debridement -Post Debridement Size (cm) - Length -Post Debridement Size (cm) - Width -Post Debridement Size (cm) - Depth -Total Square Cm -Wound/Ulcer Outcome -Ulcer Cleansing -Foul Odor after Cleansing -Bioengineered Tissue -Type of bioengineered Tissue -Expiration Date -Product Lot Number -Percent Used -Saline Lot Number -Bleeding Controlled with -Offloading -Type of Offloading -Treatment Response Pain Scale: 0-10 Numeric Is Patient Pain Free? Yes Wound debrided: dorsal long finger Laterality: Right Type of Debridement: Excisional debridement Anesthesia Used: 4% Lidocaine Solution, 5% Lidocaine Gel Depth: Down to and including healthy tissue, in the subcutaneous layer Percentage of wound debrided: 100 Instrument Used: 3mm curette Tissue Removed: Increased slough, subcutaneous tissue Severity: Fat Layer Exposed Amount of bleeding with debridement: Mild Bleeding Controlled with: Pressure Patient tolerated procedure well Cotton swab applicator used to measure depth of ulcer and felt like it hit bone. Assessment/Plan Active Problems (Last Updated 01/09/20 @ 13:[address] 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 grade 3 treated medically Delayed wound healing (Chronic) Peripheral vascular disease (Chronic) Type 2 diabetes mellitus with diabetic polyneuropathy (Chronic) Skin ulcer of finger with fat layer exposed (Chronic) necrotic ulcer dorsum right long finger at DIP joint Diabetes mellitus type 2 with complications (Chronic) Assessment: 1. Nonhealing necrotic ulcer dorsum right long finger at DIP joint. 2. Diabetes mellitus. 3. History of recent frostbite. 4. Raynaud's disease. 5. Peripheral vascular disease. 6. Smoker. Plan: Wound care will now be silver dressing daily to right long finger. Developed increased pain, swelling and redness with pain radiating up his wrist, elbow and axilla. The redness was extending towards his wrist. He was seen by Rivka Benites and she cultured the wound on 02/20/20 and started him on Levaquin. The wound cultures were positive for Staphylococcus aureus. He has increased biofilm of the right long finger today. His right long finger continues to red and swollen but no redness onto the dorsal portion of the hand. After debridement suspect bone is palpable with cotton swab applicator. X-ray from 01/28/20 showed Vascular calcification. 3 tiny bony densities overlying the distal interphalangeal joint of the third digit along the dorsal aspect. There was no evidence of osteomyelitis. If those bony densities cause pain in the future, they may need to be excised. Will monitor. Encourage range of motion exercises to minimize stiffness. A wound culture from 01/07/20 was positive for Staphylococcus aureas. He was placed on Doxycycline for this. His HgbA1c from 08/23/19 was 6.1. His last Prealbumin from 03/04/17 was 24.1. Encourage nutritional supplementation with protein to help the healing process. He is currently getting HBO for a left diabetic foot ulcer which should help to heal his right long finger wound. If healing is delayed, he would need operative debridement with skin flap or skin graft reconstruction. With his history of Raynaud's and peripheral vascular disease and smoking, he is at increased risk of developing wound healing problems and possible osteomyelitis that would lead to an eventual amputation. He voices understanding. He's also at risk for amputation because he gets chemicals on his finger through his cotton gloves at work. He states he doesn't have time to wash his hands often while at work. Encouraged the patient to stop smoking as it may have deleterious effects on wound healing. Followup one week. Instructed patient that if the redness, pain, and swelling starts to worsen, or he develops a fever that he needs to go to the ED for further evaluation for possible IV antibiotics. Stressed that he should not wait until the next day when he is coming in for HBO. Patient verbalized understanding. [id number]: [id number] Lelia subq tissue 20 sq cm/<
--- NOTE | 2020-02-25 13:09 | HBO.PN.PCM_ITS ---
History of Present Illness Date of Service: 02/25/20 Presenting Chief Complaint: Right fifth toe ulcer and left anterior foot ulcer RICK GEORGE Jr. is a 59 year old currently undergoing hyperbaric oxygen therapy for left plantar Rousseau grade 3 diabetic foot ulcer. Progress: Today represents 36th hyperbaric oxygen treatment of 40 planned treatments. Tolerance of hyperbaric oxygen therapy: Hyperbaric oxygen treatment was provided as per the facility's protocol at 2.0 VINNY and 100% oxygen for 90 minutes. The patient tolerated hyperbaric oxygen well, without complications or complaints. Upon emergence of the hyperbaric chamber the patient's vital signs remained stable. The patient did have bilateral tympanostomy tubes placed on 12/20/2019. Pre-and post blood glucose levels as documented in nursing notes. Past Medical History Chronic Problems (Last Updated 01/09/20 @ 13:[address] 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) Chronic ulcer of great toe of left foot with fat layer exposed (Chronic) Non-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ulcer of other part of right foot with fat layer exposed (Chronic) Hammertoe of right foot (Chronic) History of frostbite (Chronic) left long finger, right index finger, right long finger, and right ring finger Skin necrosis (Chronic) dorsum right long finger at DIP joint Tobacco abuse (Chronic) Raynaud disease (Chronic) Tinea unguium (Chronic) Other hereditary and idiopathic neuropathies (Chronic) Diabetic ulcer of left foot with muscle involvement without evidence of necrosis (Chronic) 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 Zhu of [facility] Essential (primary) hypertension (Chronic) Other specified peripheral vascular diseases (Chronic) Skin ulcer of finger with fat layer exposed (Chronic) necrotic ulcer dorsum right long finger at DIP joint 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) Allergies/Adverse Reactions: Allergies atorvastatin Adverse Reaction (Verified 08/23/19 12:36) Unknown metformin Adverse Reaction (Verified 08/23/19 12:36) Diarrhea Home Medications: Ambulatory Orders Medication Instructions Recorded Ammonium Lactate [Amlactin] 57 gm TP PRN PRN 10/04/17 Celecoxib [Celebrex] 200 mg PO DAILY 10/04/17 Cholecalciferol (Vitamin D3) 5,000 unit PO DAILY 10/04/17 [Vitamin D3] Levomefolate/B6/B12/Algal Oil 1 ea PO DAILY 10/04/17 [Metanx Capsule] Nortriptyline HCl 50 mg PO QHS 10/04/17 Biotin 1 mg PO DAILY 04/01/18 Desonide 0.05% [Desowen 0.05% 1 applic TOPICAL BID 04/01/18 Cream] Diflorasone Diacetate [Psorcon] 1 applicatio TP BID PRN 04/01/18 Insulin Glargine,Hum.rec.anlog 20 unit SQ QHS 04/01/18 [Basaglar Kwikpen U-100] Insulin Lispro [Humalog KwikPen] See Protocol SQ TIDCM 04/01/18 Ketoconazole [Nizoral] 1 applic TOPICAL DAILY PRN 04/01/18 Magnesium 250 mg PO DAILY 04/01/18 metoprolol tartrate 25 mg tablet 12.5 mg PO BID tab MDD 1.5 tabs 07/19/18 albuterol sulfate 90 mcg/actuation 2 puff INHALATION Q4H PRN g 08/13/19 aerosol inhaler amlodipine 10 mg tablet 10 mg PO DAILY 08/13/19 becaplermin 0.01 % topical gel 1 applic TOPICAL DAILY 08/13/19 cetirizine 10 mg tablet 10 mg PO DAILY 08/13/19 gabapentin 300 mg capsule 900 mg PO TID cap 08/13/19 nifedipine 30 mg tablet,extended 30 mg PO DAILY 08/13/19 release simvastatin 10 mg tablet 10 mg PO QHS 08/13/19 vardenafil 20 mg tablet 20 mg PO DAILY PRN 08/13/19 Cyanocobalamin [Vitamin B12] 1,000 mcg IM Q30D 08/22/19 aspirin 81 mg tablet,delayed 162 mg PO DAILY tab MDD . 10/12/19 release baclofen 20 mg tablet 30 mg PO TID tab 10/12/19 cephalexin 500 mg capsule 500 mg PO Q6H cap 10/12/19 famotidine 20 mg tablet 20 mg PO DAILY PRN 10/12/19 furosemide 20 mg tablet 20 mg PO BID PRN tab 10/12/19 lisinopril 5 mg tablet 5 mg PO QDAY #30 tab 01/28/20 Maternal Family History: Family History (Last Reviewed 10/18/19 @ 11:24 by Linda Leon) Other Arthritis Hypertension Family History: Diabetes Paternal Family History: Family History (Last Reviewed 10/18/19 @ 11:24 by Linda Leon) Other Arthritis Hypertension Family History: Diabetes Smoking Status: Current every day smoker Physical Exam Vital Signs Temp Pulse Resp BP Pulse Ox 98.4 F 74 20 H 130/73 H 100 02/25/20 10:29 02/25/20 10:29 02/25/20 10:29 02/25/20 10:29 02/15/20 00:13 General: Alert, Oriented x3, Cooperative HEENT: Atraumatic Lungs: Clear to auscultation, Normal air movement Cardiovascular: Regular rate, Regular Rhythm Psych/Mental Status: Normal Affect, Appropriate Assessment/Plan Active Problems (Last Updated 01/09/20 @ 13:[address] 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 grade 3 treated medically Delayed wound healing (Chronic) Type 2 diabetes mellitus with diabetic polyneuropathy (Chronic) Skin ulcer of finger with fat layer exposed (Chronic) necrotic ulcer dorsum right long finger at DIP joint Diabetes mellitus type 2 with complications (Chronic) The patient tolerated the Hyperbaric oxygen treatment well, which will be continued as per his medical plan. [id number]
[2020-02-26 08:46] VITALS: BP 101/55; BP 130/73; PULSE 67; PULSE 74; RESP 18; RESP 20; TEMP 35.9; TEMP 36.9
[2020-02-26 10:50] LABS: Bedside Glucose 292 mg/dL (70-110)
[2020-02-26 10:50] LABS: Bedside Glucose 266 mg/dL (70-110)
[2020-02-26 10:50] LABS: Bedside Glucose 259 mg/dL (70-110)
[2020-02-27 10:46] LABS: Bedside Glucose 175 mg/dL (70-110)
[2020-02-27 10:55] VITALS: BP 108/56; BP 119/50; PULSE 76; PULSE 91; RESP 16; RESP 18; TEMP 36.2; TEMP 36.4
--- NOTE | 2020-02-27 12:07 | PCM.HBO.PN ---
History of Present Illness Date of Service: 02/27/20 Presenting Chief Complaint: Recent frostbite right long finger with nonhealing necrotic ulcer. RICK GEORGE Jr. is a 59 year old currently undergoing hyperbaric oxygen therapy for left plantar Rousseau grade 3 diabetic foot ulcer. Progress: Today represents 37th hyperbaric oxygen treatment of 40 planned treatments. Tolerance of hyperbaric oxygen therapy: Hyperbaric oxygen treatment was provided as per the facility's protocol at 2.0 VINNY and 100% oxygen for 90 minutes. The patient tolerated hyperbaric oxygen well, without complications or complaints. Upon emergence of the hyperbaric chamber the patient's vital signs remained stable. The patient did have bilateral tympanostomy tubes placed on 12/20/2019. Pre-and post blood glucose levels as documented in nursing notes. Past Medical History Chronic Problems (Last Updated 01/09/20 @ 13:[address] 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) Chronic ulcer of great toe of left foot with fat layer exposed (Chronic) Non-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ulcer of other part of right foot with fat layer exposed (Chronic) Hammertoe of right foot (Chronic) History of frostbite (Chronic) left long finger, right index finger, right long finger, and right ring finger Skin necrosis (Chronic) dorsum right long finger at DIP joint Tobacco abuse (Chronic) Raynaud disease (Chronic) Tinea unguium (Chronic) Other hereditary and idiopathic neuropathies (Chronic) Diabetic ulcer of left foot with muscle involvement without evidence of necrosis (Chronic) 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) Allergies/Adverse Reactions: Allergies atorvastatin Adverse Reaction (Verified 08/23/19 12:36) Unknown metformin Adverse Reaction (Verified 08/23/19 12:36) Diarrhea Home Medications: Ambulatory Orders Medication Instructions Recorded Ammonium Lactate [Amlactin] 57 gm TP PRN PRN 10/04/17 Celecoxib [Celebrex] 200 mg PO DAILY 10/04/17 Cholecalciferol (Vitamin D3) 5,000 unit PO DAILY 10/04/17 [Vitamin D3] Levomefolate/B6/B12/Algal Oil 1 ea PO DAILY 10/04/17 [Metanx Capsule] Nortriptyline HCl 50 mg PO QHS 10/04/17 Biotin 1 mg PO DAILY 04/01/18 Desonide 0.05% [Desowen 0.05% 1 applic TOPICAL BID 04/01/18 Cream] Diflorasone Diacetate [Psorcon] 1 applicatio TP BID PRN 04/01/18 Insulin Glargine,Hum.rec.anlog 20 unit SQ QHS 04/01/18 [Basaglar Kwikpen U-100] Insulin Lispro [Humalog KwikPen] See Protocol SQ TIDCM 04/01/18 Ketoconazole [Nizoral] 1 applic TOPICAL DAILY PRN 04/01/18 Magnesium 250 mg PO DAILY 04/01/18 metoprolol tartrate 25 mg tablet 12.5 mg PO BID tab MDD 1.5 tabs 07/19/18 albuterol sulfate 90 mcg/actuation 2 puff INHALATION Q4H PRN g 08/13/19 aerosol inhaler amlodipine 10 mg tablet 10 mg PO DAILY 08/13/19 becaplermin 0.01 % topical gel 1 applic TOPICAL DAILY 08/13/19 cetirizine 10 mg tablet 10 mg PO DAILY 08/13/19 gabapentin 300 mg capsule 900 mg PO TID cap 08/13/19 nifedipine 30 mg tablet,extended 30 mg PO DAILY 08/13/19 release simvastatin 10 mg tablet 10 mg PO QHS 08/13/19 vardenafil 20 mg tablet 20 mg PO DAILY PRN 08/13/19 Cyanocobalamin [Vitamin B12] 1,000 mcg IM Q30D 08/22/19 aspirin 81 mg tablet,delayed 162 mg PO DAILY tab MDD . 10/12/19 release baclofen 20 mg tablet 30 mg PO TID tab 10/12/19 cephalexin 500 mg capsule 500 mg PO Q6H cap 10/12/19 famotidine 20 mg tablet 20 mg PO DAILY PRN 10/12/19 furosemide 20 mg tablet 20 mg PO BID PRN tab 10/12/19 lisinopril 5 mg tablet 5 mg PO QDAY #30 tab 01/28/20 Maternal Family History: Family History (Last Reviewed 10/18/19 @ 11:24 by Linda Leon) Other Arthritis Hypertension Family History: Diabetes Paternal Family History: Family History (Last Reviewed 10/18/19 @ 11:24 by Linda Leon) Other Arthritis Hypertension Family History: Diabetes Smoking Status: Current every day smoker Physical Exam Vital Signs Temp Pulse Resp BP Pulse Ox 97.6 F L 91 18 119/50 L 100 02/27/20 10:55 02/27/20 10:55 02/27/20 10:55 02/27/20 10:55 02/15/20 00:13 Assessment/Plan Active Problems (Last Updated 01/09/20 @ 13:[address] 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 grade 3 treated medically Delayed wound healing (Chronic) Peripheral vascular disease (Chronic) Type 2 diabetes mellitus with diabetic polyneuropathy (Chronic) Skin ulcer of finger with fat layer exposed (Chronic) necrotic ulcer dorsum right long finger at DIP joint Diabetes mellitus type 2 with complications (Chronic) The patient tolerated the Hyperbaric oxygen treatment well, which will be continued as per his medical plan.
[2020-02-27 12:55] LABS: Bedside Glucose 290 mg/dL (70-110)
[2020-02-27 13:09] VITALS: BP 108/56; PULSE 76; RESP 20; TEMP 36.2; BMI 28.7
--- NOTE | 2020-02-27 23:53 | PN.PCM_ITS ---
(1) Non-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ulcer of other part of right foot with fat layer exposed Status: Resolved Code(s): L97.512 - Non-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ulcer of other part of right foot with fat layer exposed (2) Hammertoe of right foot Status: Chronic Code(s): M20.41 - Other hammer toe(s) (acquired), right foot (3) Raynaud disease Status: Chronic Code(s): I73.00 - Raynaud's syndrome without gangrene (4) Diabetic ulcer of left foot with muscle involvement without evidence of necrosis Status: Resolved Qualifiers: Diabetic foot ulcer location: midfoot Diabetes mellitus type: type 2 Qualified Code(s): E11.621 - Type 2 diabetes mellitus with foot ulcer; L97.425 - Non-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ulcer of left heel and midfoot with muscle involvement without evidence of necrosis Code(s): E11.621 - Type 2 diabetes mellitus with foot ulcer; L97.525 - Non- 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ulcer of other part of left foot with muscle involvement without evidence of necrosis (5) Delayed wound healing Status: Chronic Code(s): T14.8XXD - Other injury of unspecified body region, subsequent encounter Type of Wound Date of Service: 02/27/20 Chief Complaint: Right fifth toe ulcer and left plantar fOot ulcer History of Wound: This 59-year-old male presents for follow-up of chronic left and right foot ulcer sites. He continues to undergo hyperbaric oxygen therapy due to the grade 3 status of the left foot. He has tolerated this well. He denies fever, chill, nausea, vomiting, odor or redness. He also kept his total contact cast to left foot intact until it was noted he had some left leg irritation. The total contact cast was removed at the end of last week. He denies drainage, redness, or odor from the site. He also follows up today for his more recent right fifth toe ulcer site. He is also been performing daily dressing changes with his right foot ulcer and obtained a surgical shoe. It is noted he is being seen for a right hand finger ulcer with infection by other wound care center providers. Progress of Wound: Healed right foot ulcer. Healed left foot ulcer - Physical Exam Vital Signs Temp Pulse Resp BP Pulse Ox 97.2 F L 76 20 H 108/56 L 100 02/27/20 13:09 02/27/20 13:09 02/27/20 13:09 02/27/20 13:09 02/15/20 00:13 General: Alert, Oriented x3, Cooperative, No apparent distress HEENT: Atraumatic Extremities: No cyanosis, Capillary Refill Less than 3 Seconds, No Calf Tenderness, Diminished Peripheral Pulses, Edema - Mild Skin: Ulcer/ Wound - No purulence, erythema, streaking, odor, infection. Skin is atrophic and hairless. She does have full epithelialization noted to the right fifth toe site and also to the left plantar foot prior ulcer site. The skin is thin. Wound Measurements and Assessment WC - Nurse 1 - General Ulcer Measurement Start: 02/15/20 14:12 Freq: Status: Active Protocol: Activity Type Activity Date Activity User E-Sign Co-Sign Detail Recorded Client Recorded Date Recorded By Document 02/25/20 09:14 DL [id number] 02/25/20 09:24 DL Document 02/27/20 13:09 DL [id number] 02/27/20 13:12 DL 02/25/20 02/27/20 09:14 13:09 Wound Center Nurse 1 [Ulcer Assessment] 14-right 5th toe -Current Size (cm) - Length 0.1 -Current Size (cm) - Width 0.1 -Current Size (cm) - Depth 0.1 -Total Square Cm 0.01 -Photo Taken No -Exudate Amt None Present -Wound Margin Thickened -Granulation Amt Medium (34-66%) -Granulation Quality [place] -Necrosis Amt Medium (34-66%) -Necrotic Tissue Type Adherent Slough -Structure Exposed N/A -Texture (Mechelle-wound Skin Appearance) Scarring -Moisture (Mechelle-wound Skin Appearance No Abnormality ) -Color (Mechelle-wound Skin Appearance) No Abnormality -Temperature (Mechelle-wound Skin No Abnormality Appearance) (Pt Warm) -Tenderness on Palpation (Mechelle-wound No Skin Appearance) -Ulcer Cleansing Wound Cleanser -Foul Odor after Cleansing No -Anesthetic Used 5% Lidocaine Gel #13 R 2nd finger -Current Size (cm) - Length 1.8 -Current Size (cm) - Width 1.4 -Current Size (cm) - Depth 0.1 -Total Square Cm 2.52 -Photo Taken No -Exudate Amt Small -Exudate Type Yellow/Green -Wound Margin Distinct, Outline Attached -Granulation Amt Large (67-100%) -Granulation Quality [place] -Necrosis Amt Small (1-33%) -Necrotic Tissue Type Adherent Slough -Structure Exposed N/A -Texture (Mechelle-wound Skin Appearance) Localized Edema ,Scarring -Moisture (Mechelle-wound Skin Appearance Dry/Scaly ) -Color (Mechelle-wound Skin Appearance) Erythema -Temperature (Mechelle-wound Skin No Abnormality Appearance) (Pt Warm) -Tenderness on Palpation (Mechelle-wound No Skin Appearance) -Ulcer Cleansing Wound Cleanser -Foul Odor after Cleansing No -Anesthetic Used 5% Lidocaine Gel 11. L plantar -Current Size (cm) - Length 0.1 -Current Size (cm) - Width 0.1 -Current Size (cm) - Depth 0.1 -Total Square Cm 0.01 -Photo Taken No -Exudate Amt None Present -Wound Margin Thickened -Granulation Amt Medium (34-66%) -Granulation Quality [place] -Necrosis Amt Medium (34-66%) -Necrotic Tissue Type Adherent Slough -Structure Exposed N/A -Texture (Mechelle-wound Skin Appearance) Scarring -Moisture (Mechelle-wound Skin Appearance Dry/Scaly ) -Color (Mechelle-wound Skin Appearance) No Abnormality -Temperature (Mechelle-wound Skin No Abnormality Appearance) (Pt Warm) -Tenderness on Palpation (Mechelle-wound No Skin Appearance) -Ulcer Cleansing Wound Cleanser -Foul Odor after Cleansing No -Anesthetic Used 5% Lidocaine Gel WC - Nurse 2 - General Ulcer CM Notes Start: 02/15/20 14:12 Freq: Status: Active Protocol: Activity Type Activity Date Activity User E-Sign Co-Sign Detail Recorded Client Recorded Date Recorded By Document 02/25/20 09:40 [id number] 02/25/20 09:42 Document 02/27/20 13:23 [id number] 02/27/20 13:26 02/25/20 02/27/20 09:40 13:23 Wound Center Nurse 2 [Procedure/Treatment] 14-right 5th toe -Correct Patient No -Correct Side, Site, Position No -Correct Procedure No -Procedure Performed No -Post Debridement Size (cm) - Length 0 -Post Debridement Size (cm) - Width 0 -Post Debridement Size (cm) - Depth 0 -Total Square Cm 0 -Wound/Ulcer Outcome Healed- Epithelialized #13 R 2nd finger -Time 09:40 -Correct Patient Yes -Correct Side, Site, Position Yes -Correct Procedure Yes -Procedure Performed Yes -Type of Procedure Debridement -Clinical Debridement Subcutaneous -Post Debridement Size (cm) - Length 0.6 -Post Debridement Size (cm) - Width 1.0 -Post Debridement Size (cm) - Depth 0.4 -Total Square Cm 0.60 -Wound/Ulcer Outcome Not Healed -Ulcer Cleansing Rinsed/ Irrigated with Saline -Foul Odor after Cleansing No -Bioengineered Tissue No -Bleeding Controlled with Pressure -Offloading No -Treatment Response Procedure Tolerated Well 11. L plantar -Correct Patient No -Correct Side, Site, Position No -Correct Procedure No -Procedure Performed No -Post Debridement Size (cm) - Length 0 -Post Debridement Size (cm) - Width 0 -Post Debridement Size (cm) - Depth 0 -Total Square Cm 0 -Wound/Ulcer Outcome Healed- Epithelialized [See Physician Procedure note for Specifics] Pain Scale: 0-10 Numeric [Pain] -Is Patient Pain Free? Yes Yes Musculoskeletal: No Tenderness to Palpation of Joints or Extremities, Muscle Wasting, - - Lesser toe digital contraction with dorsal and prominent metatarsal heads. Compartments are soft Neurological: - - Lack of epicritic sensation light touch is consistent with neuropathy status Psych/Mental Status: Normal Affect, Appropriate Debridement Note Post-Debridement Measurements/Treatment WC - Nurse 2 - General Ulcer CM Notes Start: 02/15/20 14:12 Freq: Status: Active Protocol: Activity Type Activity Date Activity User E-Sign Co-Sign Detail Recorded Client Recorded Date Recorded By Document 02/18/20 09:39 [id number] 02/18/20 09:45 Document 02/20/20 09:58 MW [id number] 02/20/20 10:15 MW Document 02/20/20 13:51 JF [id number] 02/20/20 13:58 JF Document 02/25/20 09:40 JF [id number] 02/25/20 09:42 JF Document 02/27/20 13:23 [id number] 02/27/20 13:26 JF 02/18/20 02/20/20 02/20/20 09:39 09:58 13:51 Wound Center Nurse 2 14-right 5th toe -Time 13:51 -Correct Patient Yes -Correct Side, Site, Position Yes -Correct Procedure Yes -Procedure Performed Yes -Type of Procedure Debridement -Clinical Debridement Subcutaneous -Post Debridement Size (cm) - Length 0.1 -Post Debridement Size (cm) - Width 0.2 -Post Debridement Size (cm) - Depth 0.1 -Total Square Cm 0.02 -Wound/Ulcer Outcome Not Healed -Ulcer Cleansing Rinsed/ Irrigated with Saline -Foul Odor after Cleansing No -Bioengineered Tissue No -Type of bioengineered Tissue EPIFIX -Expiration Date 11/17/24 -Product Lot Number [id number] -Percent Used 100 -Saline Lot Number [id number] -Bleeding Controlled with Pressure -Offloading Yes -Type of Offloading Surgical Shoe -Treatment Response Procedure Tolerated Well #13 R 2nd finger -Time 09:39 10:11 -Correct Patient Yes Yes -Correct Side, Site, Position Yes Yes -Correct Procedure Yes Yes -Procedure Performed Yes Yes -Type of Procedure Debridement Debridement -Clinical Debridement Subcutaneous Subcutaneous -Post Debridement Size (cm) - Length 0.7 0.3 -Post Debridement Size (cm) - Width 1.3 0.7 -Post Debridement Size (cm) - Depth 0.2 0.2 -Total Square Cm 0.91 0.21 -Wound/Ulcer Outcome Not Healed Not Healed -Ulcer Cleansing Rinsed/ Rinsed/ Irrigated with Irrigated with Saline Saline -Foul Odor after Cleansing No No -Bioengineered Tissue No No -Bleeding Controlled with Pressure Pressure -Offloading No No -Treatment Response Procedure Procedure Tolerated Well Tolerated Well 11. L plantar -Time 13:52 -Correct Patient Yes -Correct Side, Site, Position Yes -Correct Procedure Yes -Procedure Performed Yes -Type of Procedure Debridement -Clinical Debridement Subcutaneous -Post Debridement Size (cm) - Length 0.5 -Post Debridement Size (cm) - Width 0.5 -Post Debridement Size (cm) - Depth 0.2 -Total Square Cm 0.25 -Wound/Ulcer Outcome Not Healed -Ulcer Cleansing Rinsed/ Irrigated with Saline -Foul Odor after Cleansing No -Bioengineered Tissue Yes -Type of bioengineered Tissue EPIFIX -Expiration Date 11/17/24 -Product Lot Number [id number] -Percent Used 100 -Saline Lot Number [id number] -Bleeding Controlled with Pressure -Offloading Yes -Type of Offloading Total Contact Cast (TCC) -Treatment Response Procedure Tolerated Well Pain Scale: 0-10 Numeric Is Patient Pain Free? Yes Yes 02/25/20 02/27/20 09:40 13:23 Wound Center Nurse 2 14-right 5th toe -Time -Correct Patient No -Correct Side, Site, Position No -Correct Procedure No -Procedure Performed No -Type of Procedure -Clinical Debridement -Post Debridement Size (cm) - Length 0 -Post Debridement Size (cm) - Width 0 -Post Debridement Size (cm) - Depth 0 -Total Square Cm 0 -Wound/Ulcer Outcome Healed- Epithelialized -Ulcer Cleansing -Foul Odor after Cleansing -Bioengineered Tissue -Type of bioengineered Tissue -Expiration Date -Product Lot Number -Percent Used -Saline Lot Number -Bleeding Controlled with -Offloading -Type of Offloading -Treatment Response #13 R 2nd finger -Time 09:40 -Correct Patient Yes -Correct Side, Site, Position Yes -Correct Procedure Yes -Procedure Performed Yes -Type of Procedure Debridement -Clinical Debridement Subcutaneous -Post Debridement Size (cm) - Length 0.6 -Post Debridement Size (cm) - Width 1.0 -Post Debridement Size (cm) - Depth 0.4 -Total Square Cm 0.60 -Wound/Ulcer Outcome Not Healed -Ulcer Cleansing Rinsed/ Irrigated with Saline -Foul Odor after Cleansing No -Bioengineered Tissue No -Bleeding Controlled with Pressure -Offloading No -Treatment Response Procedure Tolerated Well 11. L plantar -Time -Correct Patient No -Correct Side, Site, Position No -Correct Procedure No -Procedure Performed No -Type of Procedure -Clinical Debridement -Post Debridement Size (cm) - Length 0 -Post Debridement Size (cm) - Width 0 -Post Debridement Size (cm) - Depth 0 -Total Square Cm 0 -Wound/Ulcer Outcome Healed- Epithelialized -Ulcer Cleansing -Foul Odor after Cleansing -Bioengineered Tissue -Type of bioengineered Tissue -Expiration Date -Product Lot Number -Percent Used -Saline Lot Number -Bleeding Controlled with -Offloading -Type of Offloading -Treatment Response Pain Scale: 0-10 Numeric Is Patient Pain Free? Yes Yes No debridement was completed today - Ulcers to bilateral foot are healed today Assessment/Plan Assessment: Left foot ulcer with capsule/muscle tissue exposed (healed today). Left foot deformities including tailor bunion and hammertoe. right foot ulcer with fat layer exposed (healed today). Peripheral vascular disease. Diabetes with polyneuropathy. Malnutrition. Delayed healing. Raynaud's disease. Finger ulcer management by additional wound care center provider(s) Plan: I reviewed and discussed his case today. Debridement was not performed today because the ulcer sites have healed to both feet. I recommend continue offloading with a total contact cast for an additional week to allow skin remodeling. He understands he is very high risk for reopening his ulcer site. He is amendable to proceed. To continue proper glycemic control nutritional supplementation optimize healing. Is noted his last hemoglobin A1c we have on file here is 5.9%. He was advised to follow-up with his vascular surgeon, Dr. Pena as scheduled. He had recent updated vascular studies performed and Dr. Pena is considering additional intervention. I recommend proceeding if there are options available. He has done well with his course of hyperbaric oxygen therapy. This will be discontinued at this time because of his ulcer sites are healed. He was reassured no infection, wound, bruising, or blistering is noted as a result from his cast last week. To avoid excessive activity with the cast and to monitor for return of these symptoms. Verbal consent was obtained and he tolerated this well. He was advised the this clean, dry, and intact until follow-up next week. He denies being claustrophobic. Improved offloading was discussed also he is amendable to proceed with a total contact cast. Verbal consent was obtained and this was applied according standard protocol in a neutral position and also well-padded. He tolerated this well. To return to the wound healing center in 1 week or call sooner if he has any questions or concerns. To continue to follow-up with his other wound care center provider in regards to his finger management.
--- NOTE | 2020-02-28 09:02 | WC ---
2 attempts have been made by phone to contact the patient in regards to his HBO treatments, his wound has healed and he no longer has to come for HBO treatments.
[2020-03-03 09:10] VITALS: BP 121/77; PULSE 89; RESP 18; TEMP 35.5; BMI 28.7
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
[2020-03-05 13:12] VITALS: BP 136/78; PULSE 88; RESP 18; TEMP 36.6; BMI 28.7
--- NOTE | 2020-03-05 15:22 | PN.PCM_ITS ---
(1) Non-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ulcer of other part of right foot with fat layer exposed Status: Resolved Code(s): L97.512 - Non-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ulcer of other part of right foot with fat layer exposed (2) Hammertoe of right foot Status: Chronic Code(s): M20.41 - Other hammer toe(s) (acquired), right foot (3) Raynaud disease Status: Chronic Code(s): I73.00 - Raynaud's syndrome without gangrene (4) Diabetic ulcer of left foot with muscle involvement without evidence of necrosis Status: Resolved Qualifiers: Diabetic foot ulcer location: midfoot Diabetes mellitus type: type 2 Qualified Code(s): E11.621 - Type 2 diabetes mellitus with foot ulcer; L97.425 - Non-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ulcer of left heel and midfoot with muscle involvement without evidence of necrosis Code(s): E11.621 - Type 2 diabetes mellitus with foot ulcer; L97.525 - Non- 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ulcer of other part of left foot with muscle involvement without evidence of necrosis (5) Delayed wound healing Status: Chronic Code(s): T14.8XXD - Other injury of unspecified body region, subsequent encounter (6) Type 2 diabetes mellitus with diabetic polyneuropathy Status: Chronic Code(s): E11.42 - Type 2 diabetes mellitus with diabetic polyneuropathy Type of Wound Date of Service: 03/05/20 Chief Complaint: left foot ulcer History of Wound: This 59-year-old male with diabetes and history of delayed healing follow-up for left foot ulcer. He has been treated with a total contact cast and denies issues with the cast this past week. He denies fever, chill, nausea, vomiting. He thinks the ulcer site remains healed. He has been treated with a comprehensive wound healing plan including offloading, serial debridement, hyperbaric oxygen therapy, and dressing care, advanced wound care product application with epi-fix. Progress of Wound: healed - Physical Exam Vital Signs Temp Pulse Resp BP Pulse Ox 97.8 F 88 18 136/78 H 100 03/05/20 13:12 03/05/20 13:12 03/05/20 13:12 03/05/20 13:12 02/15/20 00:13 General: Alert, Oriented x3, Cooperative Extremities: No cyanosis, Capillary Refill Less than 3 Seconds, No Calf Tenderness, Diminished Peripheral Pulses, Edema - Mild Skin: Ulcer/ Wound - The ulcer has healed and there is full epithelialization to the plantar left foot. The adjacent skin is hairless and atrophic. No new skin discontinuities or infections are noted Wound Measurements and Assessment WC - Nurse 1 - General Ulcer Measurement Start: 02/15/20 14:12 Freq: Status: Active Protocol: Activity Type Activity Date Activity User E-Sign Co-Sign Detail Recorded Client Recorded Date Recorded By Document 03/03/20 09:10 MW [id number] 03/03/20 09:13 MW 03/03/20 09:10 Wound Center Nurse 1 [Ulcer Assessment] #13 R 2nd finger -Combined with other wound No -Current Size (cm) - Length 0.6 -Current Size (cm) - Width 0.7 -Current Size (cm) - Depth 0.1 -Total Square Cm 0.42 -Photo Taken No -Epithelialization None Present -Tunneling No -Undermining/Tunneling No -Circular Undermining No -Exudate Amt Small -Exudate Type Serosanguineous -Wound Margin Flat & Intact -Granulation Amt None Present (0 %) -Granulation Quality N/A -Slough/Fibrin Yes -Necrosis Amt Large (67-100%) -Necrotic Tissue Type Adherent Slough -Structure Exposed N/A -Texture (Mechelle-wound Skin Appearance) Assessed, Scarring -Moisture (Mechelle-wound Skin Appearance No Abnormality, ) Assessed -Color (Mechelle-wound Skin Appearance) Assessed,Rubor -Temperature (Mechelle-wound Skin No Abnormality Appearance) (Pt Warm) -Tenderness on Palpation (Mechelle-wound Yes Skin Appearance) -Ulcer Cleansing Rinsed/ Irrigated with Saline -Foul Odor after Cleansing No -Anesthetic Used 5% Lidocaine Gel [Edema Assessment] -Lower Limb Edema Present No WC - Nurse 2 - General Ulcer CM Notes Start: 02/15/20 14:12 Freq: Status: Active Protocol: Activity Type Activity Date Activity User E-Sign Co-Sign Detail Recorded Client Recorded Date Recorded By Document 03/03/20 09:25 JF [id number] 03/03/20 09:26 Document 03/05/20 13:43 [id number] 03/05/20 13:43 JF 03/03/20 03/05/20 09:25 13:43 Wound Center Nurse 2 [Procedure/Treatment] #13 R 2nd finger -Time 09:26 -Correct Patient Yes -Correct Side, Site, Position Yes -Correct Procedure Yes -Procedure Performed Yes -Type of Procedure Debridement -Clinical Debridement Subcutaneous -Post Debridement Size (cm) - Length 0.5 -Post Debridement Size (cm) - Width 0.8 -Post Debridement Size (cm) - Depth 0.3 -Total Square Cm 0.40 -Wound/Ulcer Outcome Not Healed -Ulcer Cleansing Rinsed/ Irrigated with Saline -Foul Odor after Cleansing No -Bioengineered Tissue No -Bleeding Controlled with Pressure -Offloading No -Treatment Response Procedure Tolerated Well [See Physician Procedure note for Specifics] Pain Scale: 0-10 Numeric [Pain] -Is Patient Pain Free? Yes Yes Musculoskeletal: No Tenderness to Palpation of Joints or Extremities Neurological: - - Lack of epicritic sensation light touch is consistent with neuropathy status Psych/Mental Status: Normal Affect, Appropriate Debridement Note Post-Debridement Measurements/Treatment WC - Nurse 2 - General Ulcer CM Notes Start: 02/15/20 14:12 Freq: Status: Active Protocol: Activity Type Activity Date Activity User E-Sign Co-Sign Detail Recorded Client Recorded Date Recorded By Document 02/18/20 09:39 [id number] 02/18/20 09:45 Document 02/20/20 09:58 MW [id number] 02/20/20 10:15 Document 02/20/20 13:51 [id number] 02/20/20 13:58 Document 02/25/20 09:40 [id number] 02/25/20 09:42 Document 02/27/20 13:23 [id number] 02/27/20 13:26 Document 03/03/20 09:25 [id number] 03/03/20 09:26 Document 03/05/20 13:43 [id number] 03/05/20 13:43 02/18/20 02/20/20 02/20/20 09:39 09:58 13:51 Wound Center Nurse 2 14-right 5th toe -Time 13:51 -Correct Patient Yes -Correct Side, Site, Position Yes -Correct Procedure Yes -Procedure Performed Yes -Type of Procedure Debridement -Clinical Debridement Subcutaneous -Post Debridement Size (cm) - Length 0.1 -Post Debridement Size (cm) - Width 0.2 -Post Debridement Size (cm) - Depth 0.1 -Total Square Cm 0.02 -Wound/Ulcer Outcome Not Healed -Ulcer Cleansing Rinsed/ Irrigated with Saline -Foul Odor after Cleansing No -Bioengineered Tissue No -Type of bioengineered Tissue EPIFIX -Expiration Date 11/17/24 -Product Lot Number [id number] -Percent Used 100 -Saline Lot Number [id number] -Bleeding Controlled with Pressure -Offloading Yes -Type of Offloading Surgical Shoe -Treatment Response Procedure Tolerated Well #13 R 2nd finger -Time 09:39 10:11 -Correct Patient Yes Yes -Correct Side, Site, Position Yes Yes -Correct Procedure Yes Yes -Procedure Performed Yes Yes -Type of Procedure Debridement Debridement -Clinical Debridement Subcutaneous Subcutaneous -Post Debridement Size (cm) - Length 0.7 0.3 -Post Debridement Size (cm) - Width 1.3 0.7 -Post Debridement Size (cm) - Depth 0.2 0.2 -Total Square Cm 0.91 0.21 -Wound/Ulcer Outcome Not Healed Not Healed -Ulcer Cleansing Rinsed/ Rinsed/ Irrigated with Irrigated with Saline Saline -Foul Odor after Cleansing No No -Bioengineered Tissue No No -Bleeding Controlled with Pressure Pressure -Offloading No No -Treatment Response Procedure Procedure Tolerated Well Tolerated Well 11. L plantar -Time 13:52 -Correct Patient Yes -Correct Side, Site, Position Yes -Correct Procedure Yes -Procedure Performed Yes -Type of Procedure Debridement -Clinical Debridement Subcutaneous -Post Debridement Size (cm) - Length 0.5 -Post Debridement Size (cm) - Width 0.5 -Post Debridement Size (cm) - Depth 0.2 -Total Square Cm 0.25 -Wound/Ulcer Outcome Not Healed -Ulcer Cleansing Rinsed/ Irrigated with Saline -Foul Odor after Cleansing No -Bioengineered Tissue Yes -Type of bioengineered Tissue EPIFIX -Expiration Date 11/17/24 -Product Lot Number [id number] -Percent Used 100 -Saline Lot Number [id number] -Bleeding Controlled with Pressure -Offloading Yes -Type of Offloading Total Contact Cast (TCC) -Treatment Response Procedure Tolerated Well Pain Scale: 0-10 Numeric Is Patient Pain Free? Yes Yes 02/25/20 02/27/20 03/03/20 09:40 13:23 09:25 Wound Center Nurse 2 14-right 5th toe -Time -Correct Patient No -Correct Side, Site, Position No -Correct Procedure No -Procedure Performed No -Type of Procedure -Clinical Debridement -Post Debridement Size (cm) - Length 0 -Post Debridement Size (cm) - Width 0 -Post Debridement Size (cm) - Depth 0 -Total Square Cm 0 -Wound/Ulcer Outcome Healed- Epithelialized -Ulcer Cleansing -Foul Odor after Cleansing -Bioengineered Tissue -Type of bioengineered Tissue -Expiration Date -Product Lot Number -Percent Used -Saline Lot Number -Bleeding Controlled with -Offloading -Type of Offloading -Treatment Response #13 R 2nd finger -Time 09:40 09:26 -Correct Patient Yes Yes -Correct Side, Site, Position Yes Yes -Correct Procedure Yes Yes -Procedure Performed Yes Yes -Type of Procedure Debridement Debridement -Clinical Debridement Subcutaneous Subcutaneous -Post Debridement Size (cm) - Length 0.6 0.5 -Post Debridement Size (cm) - Width 1.0 0.8 -Post Debridement Size (cm) - Depth 0.4 0.3 -Total Square Cm 0.60 0.40 -Wound/Ulcer Outcome Not Healed Not Healed -Ulcer Cleansing Rinsed/ Rinsed/ Irrigated with Irrigated with Saline Saline -Foul Odor after Cleansing No No -Bioengineered Tissue No No -Bleeding Controlled with Pressure Pressure -Offloading No No -Treatment Response Procedure Procedure Tolerated Well Tolerated Well 11. L plantar -Time -Correct Patient No -Correct Side, Site, Position No -Correct Procedure No -Procedure Performed No -Type of Procedure -Clinical Debridement -Post Debridement Size (cm) - Length 0 -Post Debridement Size (cm) - Width 0 -Post Debridement Size (cm) - Depth 0 -Total Square Cm 0 -Wound/Ulcer Outcome Healed- Epithelialized -Ulcer Cleansing -Foul Odor after Cleansing -Bioengineered Tissue -Type of bioengineered Tissue -Expiration Date -Product Lot Number -Percent Used -Saline Lot Number -Bleeding Controlled with -Offloading -Type of Offloading -Treatment Response Pain Scale: 0-10 Numeric Is Patient Pain Free? Yes Yes Yes 03/05/20 13:43 Wound Center Nurse 2 14-right 5th toe -Time -Correct Patient -Correct Side, Site, Position -Correct Procedure -Procedure Performed -Type of Procedure -Clinical Debridement -Post Debridement Size (cm) - Length -Post Debridement Size (cm) - Width -Post Debridement Size (cm) - Depth -Total Square Cm -Wound/Ulcer Outcome -Ulcer Cleansing -Foul Odor after Cleansing -Bioengineered Tissue -Type of bioengineered Tissue -Expiration Date -Product Lot Number -Percent Used -Saline Lot Number -Bleeding Controlled with -Offloading -Type of Offloading -Treatment Response #13 R 2nd finger -Time -Correct Patient -Correct Side, Site, Position -Correct Procedure -Procedure Performed -Type of Procedure -Clinical Debridement -Post Debridement Size (cm) - Length -Post Debridement Size (cm) - Width -Post Debridement Size (cm) - Depth -Total Square Cm -Wound/Ulcer Outcome -Ulcer Cleansing -Foul Odor after Cleansing -Bioengineered Tissue -Bleeding Controlled with -Offloading -Treatment Response 11. L plantar -Time -Correct Patient -Correct Side, Site, Position -Correct Procedure -Procedure Performed -Type of Procedure -Clinical Debridement -Post Debridement Size (cm) - Length -Post Debridement Size (cm) - Width -Post Debridement Size (cm) - Depth -Total Square Cm -Wound/Ulcer Outcome -Ulcer Cleansing -Foul Odor after Cleansing -Bioengineered Tissue -Type of bioengineered Tissue -Expiration Date -Product Lot Number -Percent Used -Saline Lot Number -Bleeding Controlled with -Offloading -Type of Offloading -Treatment Response Pain Scale: 0-10 Numeric Is Patient Pain Free? Yes Laterality: Left No debridement was completed today - The ulcer site has healed Assessment/Plan Assessment: Healed left foot ulcer Plan: The patient was reassured his ulcer site remains healed and there are no local signs of infection. He was even treated with an additional week of a total contact cast to allow skin remodeling. He understands his skin and this recently healed foot ulcer site is friable and he needs to perform a slow progression back into an extra-depth shoe. Advised to use his cam walker with his offloading pocket and to gradually progress into his extra-depth shoes over the course of the next 2 weeks. He brought his extra-depth boots today for evaluation including muck boots and work boots and these appear to be appropriate. He would also like to return to the foot and ankle center to get an updated pair of extra depth shoes for daily use. He will be discharged from the wound healing center at this time. To monitor closely for return of infection or ulcer or pre-ulcerative signs. He was advised to continue with proper glycemic control and to eliminate tobacco use to prevent recurrence. Answered all his questions.
--- NOTE | 2020-03-05 16:14 | WC ---
Spoke to Dr Bishop regarding patient's concern of weakness to his hamstrings since he was on the Levaquin. Patient has stopped taking the medicine. His recommendation is to notify his PCP regarding this matter. Left a message on patient's voicemail regarding this matter.
== END 2020-03-16 23:59 ==
LOC: WC 13:00
PROVIDERS: Family Provider Student in an Organized Health Care Education/Training Program; PCP Student in an Organized Health Care Education/Training Program; Referring Provider Podiatrist; Visit Provider Podiatrist
DX: E11.621 Type 2 diabetes mellitus with foot ulcer (principal); L97.522 Non-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ulcer of other part of left foot with fat layer exposed; L97.512 Non-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ulcer of other part of right foot with fat layer exposed; L97.525 Non-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ulcer of other part of left foot with muscle involvement without evidence of necrosis; T14.8XXD Other injury of unspecified body region, subsequent encounter; I73.00 Raynaud's syndrome without gangrene; I10 Essential (primary) hypertension; I73.9 Peripheral vascular disease, unspecified; L97.425 Non-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ulcer of left heel and midfoot with muscle involvement without evidence of necrosis; M20.41 Other hammer toe(s) (acquired), right foot; Z91.89 Other specified personal risk factors, not elsewhere classified; E11.51 Type 2 diabetes mellitus with diabetic peripheral angiopathy without gangrene; E11.42 Type 2 diabetes mellitus with diabetic polyneuropathy; M20.42 Other hammer toe(s) (acquired), left foot; I25.10 Atherosclerotic heart disease of native coronary artery without angina pectoris; Z95.1 Presence of aortocoronary bypass graft; F17.200 Nicotine dependence, unspecified, uncomplicated; Z79.1 Long term (current) use of non-steroidal anti-inflammatories (NSAID); Z79.4 Long term (current) use of insulin; Z79.82 Long term (current) use of aspirin; Z82.49 Family history of ischemic heart disease and other diseases of the circulatory system; X31.XXXD Exposure to excessive natural cold, subsequent encounter; E46 Unspecified protein-calorie malnutrition
CPT/HCPCS: 11042; 15275; 29445; 82962; 87070; 87075; 87077; 87186; 87205; 99183; 99212; 99213; Q4186; G0277; G0463

== ENCOUNTER → 2020-03-13 13:32 | Outpatient (CLI) | payer MEDICAID, SELFPAY ==
[2020-03-05 13:12] VITALS: BMI 28.7
[2020-03-13 14:57] LABS: Absolute Lymphocyte Count 1.25 X10^3/uL (0.83-4.51); Absolute Neutrophil Count 5.4 X10^3/uL (2.0-7.7); Basophil# 0.05 X10^3/uL; Basophil% 0.6 % (0-1); Eosinophil# 0.22 X10^3/uL; Eosinophils% 2.8 % (0-5); Hematocrit 39.4 % (40-54); Hemoglobin 12.4 g/dL (13.0-16.5); Lymphocyte # 1.25 X10^3/ul (4.0); Lymphocyte % 15.9 % (19-41); Mean Corp Hgb Conc 31.5 g/dL (32-36); Mean Corpuscular Hgb 31.4 pg (27.0-32.0); Mean Corpuscular Volume 99.7 fL (80-94); Mean Platelet Vol. 10.2 fl (6.2-12.0); Monocyte# 0.86 X10^3/uL; Monocyte% 10.9 % (0-10); NRBC Flagged by Analyzer 0 % (0-5); Neutrophil # 5.38 X10^3/uL (2.7-7.7); Neutrophil % 68.4 % (47-70); Platelet Count 319 K/mm3 (150-450); RBC Distribution Width CV 13.4 % (11.6-14.6); RBC Distribution Width SD 49.4 fl (35.1-43.9); Red Blood Count 3.95 M/mm3 (4.6-6.2); White Blood Count 7.9 K/mm3 (4.4-11.0)
[2020-03-13 15:22] LABS: Hemoglobin A1c 6.5 % (3.8-5.6)
[2020-03-13 15:43] LABS: ALB/GLOB Ratio 0.8 RATIO (0.9-2.4); AST(SGOT) 17 U/L (15-37); Alanine Aminotransfer ALT/SGPT 24 U/L (16-61); Albumin, Serum 3.4 g/dL (3.2-5.0); Alkaline Phosphatase 145 U/L (45-117); Anion Gap 4 (5-15); BUN 15 mg/dL (7-18); BUN/Creat Ratio 17.8 RATIO (10-20); Calcium,Total 9.3 mg/dL (8.5-10.1); Chloride 108 mmol/L (98-107); Creatinine, Serum 0.84 mg/dL (0.70-1.30); EST Glomerular Filtration Rate 99 mL/min (>60); Est Glom Filt Rate - Afr Amer 120 mL/min (>60); Globulin 4.3 g/dL (2.2-4.2); Glucose 67 mg/dL (74-106); Potassium 4.5 mmol/L (3.5-5.1); Protein, Total 7.7 g/dL (6.4-8.2); Sodium Level 142 mmol/L (136-145)
[2020-03-13 19:20] LABS: M R Staph aureus DNA By PCR Negative (Negative); Probe Check PASS; Specimen Processing Control PASS; Staph aureus DNA By PCR POSITIVE (Negative)
== END ==
PROVIDERS: PCP Student in an Organized Health Care Education/Training Program; Referring Provider Podiatrist; Visit Provider Podiatrist
DX: L97.522 Non-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ulcer of other part of left foot with fat layer exposed (principal)
CPT/HCPCS: 36415; 80053; 83036; 85025; 87070; 87075; 87077; 87186; 87205; 87640

== ENCOUNTER → 2020-03-26 12:13 | Emergency (ER) | payer MEDICAID, SELFPAY ==
[2020-03-26 10:56] VITALS: BMI 28.7
[2020-03-26 12:17] VITALS: BP 146/76; PULSE 81; RESP 18; TEMP 36.5; O2SAT 96; BMI 29.2
--- NOTE | 2020-03-26 12:33 | ED.VIS.GEN ---
History of Present Illness Chief Complaint: Wound Informant: Patient Onset: Month(s) - 6 Context: Gradual Onset - after finger was frostbitten Timing: Continuous Quality: sore, red, swollen, purulent discharge Location: right middle finger Current Severity: Moderate Maximum Severity: Moderate Worsened by: palpation, using finger Relieved by: remaining still and leaving alone Associated Symptoms: as above. no fevers or systemic sx. Narrative: Patient states he was sent from the wound center for further evaluation of his finger. Patient states he had it frostbitten in September. Other fingers were affected but they healed. He has been following with Dr. Bishop and the wound center. This wound has not healed. It has been red and swollen with purulent discharge, basically since September according to the patient. That is what it looks now. Sometimes the color of the discharge changes. He has been on several courses of antibiotics, he currently is on doxycycline. He denies any fevers or systemic symptoms. He denies anything looking different today. Patient states remotely he tripped and sustained a wound to 1 of his toes on the left foot, he is also seen the wound center for that and has a boot on with bandaging. - Past Medical History (1) Type 2 diabetes mellitus with diabetic polyneuropathy Status: Chronic (2) DDD (degenerative disc disease), lumbar Status: Chronic Comment: with Grade I anterolisthesis of L5 on S1. (3) H/O stroke associated with blood clotting tendency Status: Chronic (4) Old myocardial infarction Status: Chronic (5) Essential (primary) hypertension Status: Chronic (6) Peripheral vascular disease Status: Chronic Past Medical History - Allergies and Home Meds Allergies/Adverse Reactions: Allergies atorvastatin Adverse Reaction (Verified 03/26/20 12:19) Unknown metformin Adverse Reaction (Verified 03/26/20 12:19) Diarrhea Primary Care Physician: Avery Escalante DO [Primary Care Provider] - Surgical History: coronary bypass surgery, - - Toe amputations RLE. appendectomy with partial cecectomy. Smoking Status: Current every day smoker - Family History Maternal Family History: Family History (Last Reviewed 10/18/19 @ 11:24 by Linda Leon) Other Arthritis Hypertension Family History: Reports: Diabetes Paternal Family History: Family History (Last Reviewed 10/18/19 @ 11:24 by Linda Leon) Other Arthritis Hypertension Family History: Reports: Diabetes Review of Systems General: Denies: Chills, Fever, Sweats Eyes: Denies: Visual changes - bilaterally, Diplopia ENT: Denies: Rhinorrhea, Sore throat Cardiovascular: Denies: Chest pain, Palpitations Respiratory: Denies: Dyspnea, Cough, Dyspnea on exertion Gastrointestinal: Denies: Abdominal pain, Nausea, Vomiting, Diarrhea, Melena, Hematochezia Genitourinary: Denies: Dysuria, Hematuria, Frequency Musculoskeletal: Reports: Swelling - finger, Extremity Pain. Denies: Neck pain Skin: Reports: Abrasions - left knee yesterday when tripped and fell, Wounds - see HPI. Denies: Rash Neurological: Reports: Numbness - chronic BLE. Denies: Headache, Weakness Physical Exam Vital Signs/Narrative: Vital Signs Temp Pulse Resp BP Pulse Ox 03/26/20 12:17 97.7 F L 81 18 146/76 H 96 Inital Vital Signs reviewed: Yes General: Well nourished, Well developed, No Acute Distress Head: Normocephalic, Atraumatic Eyes: Perrl, EOMI ENT: Moist mucous membranes, No rhinorrhea Neck: Supple, Nontender Cardiovascular: Regular rate, Regular rhythm, No murmurs. Negative for: Tachycardia Respiratory: No distress, CTA bilaterally, Chest nontender Abdomen: Soft, Nontender, Nondistended Back: Nontender, Normal Inspection Extremities: Tenderness - right middle finger wound, - - Right middle finger is erythematous and swollen distal to the PIPJ. Limited range of motion of all joints of that finger due to swelling. Tenderness especially near the wound which is near the DIPJ. There is a scant amount of purulent material present. I feel no subcutaneous emphysema. Wearing an orthotic boot left lower extremity. Skin: Normal color - Except for erythematous right middle finger distal to the PIPJ., No rash, - - No lymphangitis or tenderness in the flexor tendon distribution proximal to the erythema in the right middle finger. No epitrochlear lymphadenopathy. Scant purulent material from wound at right middle finger, not significant change with trying to express more. Nail intact and unremarkable. Neurological: Alert, Oriented x3, Cranial nerves II-XII grossly intact, Normal Strength, Parasthesia - Distal both feet Psychological: Normal affect, Normal Mood Diagnostic/Tx/Re-eval - Medical Decision Making As I discussed with the patient, I ordered a culture as he states that the wound center requested, an x-ray of his finger, and blood work including CRP and ESR, certainly with this infection that is apparently failing outpatient antibiotics, he could have osteomyelitis. I discussed with him that we would be getting test and then discussing with a specialist like Dr. Bishop. 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 He eloped prior to getting the x-ray and prior to my being able to discuss with the patient. Disposition: [facility] Disposition - Plan for ED Patient: Disposition: Home or Assisted Living Diagnosis: Finger infection Referrals: Avery Escalante DO [Primary Care Provider] -
--- NOTE | 2020-03-26 13:18 | ED.RN ---
PT REFUSING IV AND BLOOD WORK. STATES I HAVE THINGS I NEED TO DO. STATES WANTS TO LEAVE BUT MIGHT RETURN LATER OR TOMORROW IF HE HAS TIME
== END | disposition home or self-care (01) ==
PROVIDERS: Emergency Provider Emergency Medicine; PCP Student in an Organized Health Care Education/Training Program
DX: L08.9 Local infection of the skin and subcutaneous tissue, unspecified (principal); E11.42 Type 2 diabetes mellitus with diabetic polyneuropathy; E11.51 Type 2 diabetes mellitus with diabetic peripheral angiopathy without gangrene; I10 Essential (primary) hypertension; M51.36 Other intervertebral disc degeneration, lumbar region; F17.200 Nicotine dependence, unspecified, uncomplicated; Z79.82 Long term (current) use of aspirin; Z79.4 Long term (current) use of insulin; Z79.899 Other long term (current) drug therapy; I25.2 Old myocardial infarction; Z86.73 Personal history of transient ischemic attack (TIA), and cerebral infarction without residual deficits; Z95.5 Presence of coronary angioplasty implant and graft
CPT/HCPCS: 87070; 87205

== ENCOUNTER 2020-03-26 17:16 | Inpatient (IN) | payer MEDICAID, SELFPAY ==
[2020-03-26 12:17] VITALS: BMI 29.2
[2020-03-26 17:18] VITALS: BP 102/60; PULSE 102; RESP 18; TEMP 36.9; O2SAT 93; BMI 29.2
[2020-03-26 17:41] VITALS: BP 102/60; PULSE 102; RESP 18; TEMP 36.9; O2SAT 93
--- NOTE | 2020-03-26 17:42 | RAD_ITS ---
STUDY: X-RAY - RIGHT HAND REASON FOR EXAM: Male, 59 years old. PT BACK FOR ADMISSION FOR IV ATB D/T POOR HEALING FROSTBITE ON R HAND FROM Sep. ROMANO DRAINAGE AND HAS CREPITUS TECHNIQUE: January 28, 2020 view(s) of the hand. COMPARISON: None. FINDINGS: Normal radiocarpal articulation. Normal distal radioulnar joint. Normal visualized carpal bones. Normal carpal articulations There is degenerative arthrosis of the carpometacarpal (CMC) articulation of the thumb. Normal second through fifth carpometacarpal joints. Normal metacarpi. Normal metacarpophalangeal joint of the thumb. Normal interphalangeal joint of the thumb. Normal proximal and distal phalanges of the thumb. There is arthrosis of the metacarpophalangeal joint of the third finger. There is destructive change of the head of the third middle phalanx and base of the third distal phalanx at the interphalangeal joint. There is soft tissue swelling of the third finger. There are vascular calcifications. RAD/Hand Min 3 Views IMPRESSION: Osseous destruction with erosive change of the third middle and distal phalanges consistent with osteomyelitis versus osteolysis. Arthritic change. Electronically Signed: Neil Melo MD at 18:37 EDT , Service support ,
--- NOTE | 2020-03-26 17:46 | ED.VISSUMM ---
- ER Visit Summary Date of Service: 03/26/20 Chief Complaint: Right middle finger History of Present Illness: The patient is a 59 M who is here for a right middle finger infection. This started with frostbite in September. He has been on multiple rounds of oral antibiotics. He was seen in the wound center today. They sent a photo to Dr. Bishop who advised that he comes to the ED. They were concerned for crepitus, increasing pain today. Physical Examination: Afebrile and vital signs unremarkable. Right long finger is erythematous starting at the midportion of the middle phalanx. There is skin peeling. I do not appreciate crepitus. There is a dorsal abrasion. Test Results: X-ray and labs pending. Emergency Department Course and Treatment: We will check x-ray and labs. I contacted the hand surgeon He advised starting vancomycin and admission. Results are pending. The patient may be admitted after starting antibiotics and after performing x-ray. Treatment Plan: As above Disposition: Admission Impression: Right middle finger infection, diabetes This note was generated with [employer] dictation software. It may contain incorrect words, spelling, and punctuation that were not noted in review of the chart prior to signing ED Disposition - Plan for ED Patient: Referrals: Avery Escalante DO [Primary Care Provider] -
--- NOTE | 2020-03-26 17:53 | NURSING ---
MED SURG SLABMonique RT FINGER INFECTION, DIABETES
[2020-03-26 17:55] VITALS: BP 102/60; PULSE 102; RESP 18; TEMP 36.9; O2SAT 93
[2020-03-26 18:14] LABS: Absolute Lymphocyte Count 1.13 X10^3/uL (0.83-4.51); Absolute Neutrophil Count 4.3 X10^3/uL (2.0-7.7); Basophil# 0.04 X10^3/uL; Basophil% 0.6 % (0-1); Eosinophil# 0.16 X10^3/uL; Eosinophils% 2.5 % (0-5); Hematocrit 38.3 % (40-54); Hemoglobin 12.3 g/dL (13.0-16.5); Lymphocyte # 1.13 X10^3/ul (4.0); Lymphocyte % 17.9 % (19-41); Mean Corp Hgb Conc 32.1 g/dL (32-36); Mean Corpuscular Hgb 32.3 pg (27.0-32.0); Mean Corpuscular Volume 100.5 fL (80-94); Monocyte# 0.61 X10^3/uL; Monocyte% 9.7 % (0-10); NRBC Flagged by Analyzer 0 % (0-5); Neutrophil # 4.28 X10^3/uL (2.7-7.7); Platelet Count 230 K/mm3 (150-450); RBC Distribution Width CV 13.9 % (11.6-14.6); RBC Distribution Width SD 50.5 fl (35.1-43.9); Red Blood Count 3.81 M/mm3 (4.6-6.2); White Blood Count 6.3 K/mm3 (4.4-11.0)
[2020-03-26 18:22] LABS: Prothrombin Time (Protime)PT. 12.6 SECONDS (11.7-14.9)
[2020-03-26 18:27] LABS: Erythrocyte Sedimentation Rate 36 mm/hr (0-20)
[2020-03-26 18:31] VITALS: BMI 30.7; BMI 30.8
[2020-03-26 18:37] LABS: Anion Gap 7 (5-15); BUN 21 mg/dL (7-18); CRP 9.38 mg/L (0.0-3.0); Chloride 103 mmol/L (98-107); EST Glomerular Filtration Rate 81 mL/min (>60); Est Glom Filt Rate - Afr Amer 98 mL/min (>60); Estimated Creatinine Clearance 83.14 ml/min; Glucose 292 mg/dL (74-106); Potassium 4.5 mmol/L (3.5-5.1); Sodium Level 137 mmol/L (136-145)
[2020-03-26 18:59] VITALS: BP 156/87; PULSE 81; RESP 18; TEMP 36.9; O2SAT 97
--- NOTE | 2020-03-26 19:23 | HP.PCM_ITS ---
History of Present Illness Date of Admission: 03/26/20 Chief Complaint: Nonhealing infected diabetic ulcer right long finger. 59-year-old man with a history of diabetes has a nonhealing ulcer dorsum right long finger at DIP joint. He sustained frostbite back on October 03, 2019 involving his left long finger, right index finger, right long finger, and right ring finger. He was seen at [facility]. After careful observation to look for areas of demarcation, all the fingers survived with the exception of some skin necrosis on the right long finger. Wound care has been with Silver dressing changes. He had wound culture in December which showed Staphylococcus aureus and he was treated with Doxycycline. He had a repeat culture in February which showed Staphylococcus aureus and he was treated with Levaquin as it was resistant to Tetracycline. 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 I discussed with him at the [facility] Center that his right long finger is at increased risk for infection because of exposure to chemicals which may lead to an eventual amputation. He was at the Wound Center for treatment of a foot ulcer and it was noted his right long finger showed increased redness and swelling and tenderness. He went to the ED for evaluation. He has failed outpatient treatment and admission was required for IV antibiotics and possible operative intervention. The ulcer has extended to the underlying bone. There is concern about osteomyelitis. He was started on I V Vancomycin. Patient is right hand dominant. Past Medical History Past Medical History (Chronic Problems): Chronic Problems (Last Updated 01/09/20 @ 13:[address] 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 grade 3 treated medically Hammertoe of right foot (Chronic) Delayed wound healing (Chronic) Malnutrition (Chronic) Peripheral vascular disease (Chronic) Type 2 diabetes mellitus with diabetic polyneuropathy (Chronic) Atherosclerotic heart disease of [place] coronary artery without angina pectoris (Chronic) Old myocardial infarction (Chronic) DDD (degenerative disc disease), lumbar (Chronic) with Grade I anterolisthesis of L5 on S1. H/O stroke associated with blood clotting tendency (Chronic) H/O three vessel coronary artery bypass (Chronic ~04/12/18) MACK-LAD, SVG-OM, SVG to left PDA by Dr. 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) Medical History: Medical History (Last Updated 01/09/20 @ 13:[address] Lio Bishop MD) Atherosclerotic heart disease of [place] coronary artery without angina pectoris (Chronic) I25.10 Acute congestive heart failure (Acute) I50.9 Old myocardial infarction (Chronic) I25.2 H/O stroke associated with blood clotting tendency (Chronic) Z86.73 Essential (primary) hypertension (Chronic) I10 Other specified peripheral vascular diseases (Chronic) I73.89 Skin ulcer of finger with fat layer exposed (Chronic) L98.492 necrotic ulcer dorsum right long finger at DIP joint Callous ulcer with fat layer exposed (Chronic) L98.492 Right middle and ring fingers. Type 2 diabetes mellitus with diabetic polyneuropathy (Chronic) E11.42 Hammertoe of right foot (Chronic) M20.41 Hammertoe of left foot (Chronic) M20.42 Xerosis cutis (Chronic) L85.3 Nonhealing nonsurgical wound with fat layer exposed (Acute) T14.8XXA Non-healing surgical wound (Acute) T81.89XA Diabetes mellitus type 2 with complications (Chronic) E11.8 Environmental allergies Z91.09 NSTEMI (non-ST elevated myocardial infarction) Onset Date: ~03/2018 I21.4 Segmental and somatic dysfunction of cervical region M99.01 Segmental and somatic dysfunction of lumbar region M99.03 Segmental and somatic dysfunction of thoracic region M99.02 Thoracic neuritis M54.14 Cerebrovascular disease I67.9 Right thalamic stroke Neuropathy G62.9 Most likely severe diabetic neuropathy [facility] Non-compliance Z91.19 Xerosis of skin L85.3 Cellulitis lft foot failed outpatient tx (Resolved) Chronic ulcer of left foot with fat layer exposed L97.522 Diabetic foot ulcer associated with type 2 diabetes mellitus (Resolved) E11.621, L97.509 Ulcer of right foot with fat layer exposed L97.512 Allergies atorvastatin Adverse Reaction (Verified 03/26/20 17:21) Unknown metformin Adverse Reaction (Verified 03/26/20 17:21) Diarrhea Home Medications: Ambulatory Orders Medication Instructions Recorded Ammonium Lactate [Amlactin] 57 gm TP PRN PRN 10/04/17 Celecoxib [Celebrex] 200 mg PO DAILY 10/04/17 Cholecalciferol (Vitamin D3) 5,000 unit PO DAILY 10/04/17 [Vitamin D3] Levomefolate/B6/B12/Algal Oil 1 ea PO DAILY 10/04/17 [Metanx Capsule] Nortriptyline HCl 50 mg PO QHS 10/04/17 Biotin 1 mg PO DAILY 04/01/18 Desonide 0.05% [Desowen 0.05% 1 applic TOPICAL BID PRN 04/01/18 Cream] Diflorasone Diacetate [Psorcon] 1 applicatio TP BID PRN 04/01/18 Insulin Glargine,Hum.rec.anlog 20 unit SQ DAILY 04/01/18 [Basaglar Kwikpen U-100] Insulin Lispro [Humalog KwikPen] See Protocol SQ TIDCM 04/01/18 Ketoconazole [Nizoral] 1 applic TOPICAL DAILY PRN 04/01/18 Magnesium 250 mg PO DAILY 04/01/18 metoprolol tartrate 25 mg tablet 12.5 mg PO BID tab MDD 1.5 tabs 07/19/18 albuterol sulfate 90 mcg/actuation 2 puff INHALATION Q4H PRN g 08/13/19 aerosol inhaler amlodipine 10 mg tablet 10 mg PO DAILY 08/13/19 becaplermin 0.01 % topical gel 1 applic TOPICAL DAILY PRN 08/13/19 cetirizine 10 mg tablet 10 mg PO DAILY 08/13/19 gabapentin 300 mg capsule 900 mg PO TID cap 08/13/19 simvastatin 10 mg tablet 10 mg PO QHS 08/13/19 vardenafil 20 mg tablet 20 mg PO DAILY PRN 08/13/19 Cyanocobalamin [Vitamin B12] 1,000 mcg IM Q30D 08/22/19 aspirin 81 mg tablet,delayed 162 mg PO DAILY tab MDD . 10/12/19 release baclofen 20 mg tablet 30 mg PO TID tab 10/12/19 famotidine 20 mg tablet 20 mg PO DAILY 10/12/19 furosemide 20 mg tablet 20 mg PO BID PRN tab 10/12/19 Doxycycline Monohydrate 100 mg PO BID 03/26/20 Lisinopril 5 mg PO QDAY 03/26/20 Surgical History: Surgical History (Last Reviewed 10/18/19 @ 11:24 by Linda Leon) H/O three vessel coronary artery bypass (Chronic) Onset Date: ~04/12/18 Z95.1 MACK-LAD, SVG-OM, SVG to left PDA by Dr. Zhu of [facility] Surgical History: coronary bypass surgery, - - Toe amputations RLE. appendectomy with partial cecectomy. Psychiatric History: No pertinent psych hx Smoking Status: Never smoker - *Family History Maternal Family History: Family History (Last Reviewed 10/18/19 @ 11:24 by Linda Leon) Other Arthritis Hypertension History Items: Diabetes Paternal Family History: Family History (Last Reviewed 10/18/19 @ 11:24 by Linda Leon) Other Arthritis Hypertension History Items: Diabetes Review of Systems Comment: Constitutional: Reports: Anorexia, Weakness. Denies: Chills, Fever, Weight Change. Eyes: Denies: Blurred vision, Cataracts, Conjunctivae Inflammation, Double vision. HEENT: Denies: Difficulty Hearing, Difficulty Swallowing, Head Aches, Sinus Congestion, Sinus Drainage. Cardiovascular: Reports: Chest Pain, Chest Pressure, Edema, Orthopnea. Denies: Chest Tightness, Palpitations, Paroxysmal Noc. Dyspnea. Respiratory: Reports: Shortness of Breath, Shortness of breath at rest, Shortness of breath upon exertion. Denies: Cough, Hemoptysis, Pleuritic Pain, Sputum production. Gastrointestinal: Denies: Abdominal Pain, Constipation, Hematemesis, Nausea, Vomiting. Genitourinary: Denies: Dysuria, Frequency, Incontinence. Musculoskeletal: Denies: Arm Pain, Back Pain, Joint Pain, Joint stiffness, Joint swelling, Joint Tenderness. Skin: Denies: Rash, Wounds. Neurological: Denies: Numbness, Tingling, Focal weakness. Psychiatric: Denies: Anxiety, Depression, Homicidal Ideations, Suicidal Ideations. Hematologic/ Lymphatic: Denies: Easy Bruising, Easy Bleeding VTE Information - Inpt Only VTE Present on Admission: No VTE Mechan Device Prophylaxis: SCD's VTE Pharm Prophylaxis ordered?: No Patient Problems: Active and Suspected Problems (Last Updated 01/09/20 @ 13:[address] Lio kline MD) Ulcer of left foot with fat layer exposed (Acute) Finger infection (Acute) - Physical Exam Vitals/I&O's: General: Alert, Oriented x3, Cooperative. HEENT: PERRLA, EOMI. Oral: Moist Mucosa. Neck: Supple, nontender. No cervical adenopathy. Lungs: Normal air movement, Diminished Cardiovascular: Regular rate, Regular Rhythm. Abdomen: Soft, Non-Distended. Extremities: On the dorsum right long finger over the DIP joint is a nonhealing ulcer with overlying scab. There is surrounding redness and swelling and tenderness. The ulcer measures 1 cm. There is an overlying scab. No purulent drainage. Can almost make a fist. He states he has chronic stiffness in his fingers from his Raynaud's. He is right hand dominant. Fingers are warm with good capillary refill. Has paresthesias from diabetic neuropathy. No axillary adenopathy. Lymphatic: No Cervical, Supraclavicular, or Inguinal Adenopathy Neurological: Cranial nerves II-XII grossly intact Psych/Mental Status: Normal Affect, Appropriate Vital Signs Temp Pulse Resp BP Pulse Ox 98.4 F 81 18 156/87 H 97 03/26/20 18:59 03/26/20 18:59 03/26/20 18:59 03/26/20 18:59 03/26/20 18:59 Oxygen Delivery Method Room Air Weight: 215 lb Body Mass Index (BMI) 30.7 Finger Stick Blood Glucose 107 Laboratory Results 03/26/20 17:55: WBC 6.3, RBC 3.81 L, Hgb 12.3 L, Hct 38.3 L, MCV 100.5 H, MCH 32.3 H, MCHC 32.1, RDW Std Deviation 50.5 H, RDW Coeff of Mayi 13.9, Plt Count 230, MPV 10.0, Immature Gran % (Auto) 1.300 H, Neut % (Auto) 68.0, Lymph % (Auto) 17.9 L, Merrick % (Auto) 9.7, Eos % (Auto) 2.5, Baso % (Auto) 0.6, Absolute Neuts (auto) 4.3, Absolute Lymphs (auto) 1.13, Nucleated RBC % 0, ESR 36 H 03/26/20 17:55: PT 12.6, INR 1.0 03/26/20 17:55: Sodium 137, Potassium 4.5, Chloride 103, Carbon Dioxide 27.0, Anion Gap 7, BUN 21 H, Creatinine 1.00, Estim Creat Clear Calc 83.14, Est GFR (MDRD) Af Amer 98, Est GFR (MDRD) Non-Af 81, BUN/Creatinine Ratio 21.0 H, G lucose 292 H, Calcium 9.0, C-React Prot Ext Range 9.38 H Current Medications Vancomycin HCl 1,500 mg/ (Sodium Chloride) 530 mls @ 250 mls/hr IV X1 ONE Stop: 03/26/20 20:07 Last Admin: 03/26/20 18:52 Dose: 250 mls/hr Documented by: Sodium Chloride () 250 mls @ 15 mls/hr IV .[id number] PRN PRN Reason: Saline Flush Sodium Chloride () 250 mls @ 15 mls/hr IV .[id number] PRN PRN Reason: Additional IVPB Infusion Sodium Chloride () 10 - 40 ml IV UD PRN PRN Reason: SALINE FLUSH Assessment/Plan All Active Problems (Last Updated 01/09/20 @ 13:[address] Lio Bishop MD) Finger osteomyelitis, right (Acute) Cellulitis of finger, right (Acute) Ulcer of left foot with fat layer exposed (Acute) Finger infection (Acute) Non-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ulcer of other part of right foot with fat layer exposed (Resolved) Type 2 diabetes mellitus with foot ulcer (Acute) Type 2 diabetes mellitus with other specified complication (Acute) Diabetic ulcer of left foot with muscle involvement without evidence of necrosis (Resolved) Non-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ulcer of other part of right foot with fat layer exposed (Resolved) Colonization status (Resolved) Segmental and somatic dysfunction of lumbar region (Acute) Segmental and somatic dysfunction of thoracic region (Acute) Segmental and somatic dysfunction of cervical region (Acute) Acute congestive heart failure (Acute) Segmental and somatic dysfunction of pelvic region (Acute) Dyspnea on exertion (Acute) Nonhealing nonsurgical wound with fat layer exposed (Acute) Non-healing surgical wound (Acute) Acute left-sided weakness (Resolved) Cellulitis lft foot failed outpatient tx (Resolved) Diabetic foot ulcer associated with type 2 diabetes mellitus (Resolved) Left sided numbness (Resolved) Muscle wasting disorder (Resolved) 1. Nonhealing infected diabetic ulcer dorsum right long finger at DIP joint with cellulitis. 2. Diabetes mellitus. 3. History of recent frostbite. 4. Raynaud's disease. 5. Peripheral vascular disease. 6. Smoker. 7. Osteomyelitis. Begin IV antibiotics with Vancomycin. He has had finger wound cultures in December and in February recently that showed Staphylococcus aureus. He has been on Doxycycline after the December culture and Levaquin after the February culture since it was resistant to Tetracycline. He also has a foot ulcer that Dr. Aparicio has been treating at the [facility]. A foot culture was done earlier today and Doxycycline was started. Continue Silver dressing changes. Will debride the scab and check MRSA DNA by PCR. Will order a CT to look for extent of infection and to look for osteomyelitis. Will consult [facility] for medical management for his diabetes. 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 At the wound center, I told him that he is at increased risk for infection and ultimate amputation because of this as well as from his history of diabetes, smoking, and vascular disease. He voiced understanding. His HgbA1c from 03/13/20 was 6.5. His last Prealbumin from 03/04/17 was 24.1. Will check another Prealbumin. Encourage nutritional supplementation with protein to help the healing process. Unless the IV antibiotics dramatically improve the infection, he will need operative intervention with surgical preparation right long finger with incision and drainage and excisional debridement nonhealing infected diabetic ulcer and possible partial ostectomy for osteomyelitis. Will check him for COVID with the possibility of proceeding with surgery. After surgery will continue Silver dressing changes. After discharge followup at the Wound Center. If healing is delayed, he would need operative debridement with skin flap or s kin graft reconstruction. With his history of Raynaud's and peripheral vascular disease and smoking, he is at increased risk of developing wound healing problems and possible osteomyelitis that would lead to an eventual amputation. He voices understanding. Patient was informed of the risks and complications of the procedure including alternatives to surgery. These were discussed with the patient personally. Patient voices understanding and wishes to proceed. Some of the risks and complications that were discussed included but were not inclusive of failure to diagnose including symptom relief, pain, infection, numbness, stiffness, loss of digit, RSD (CRPS), need for further surgery, contracture, and wound healing problems. Encouraged the patient to stop smoking as it may have deleterious effects on wound healing. Procedure Criteria Procedure Type: Essential - patient has a nonhealing infected diabetic ulcer right long finger with concern for underlying osteomyelitis. Procedure Essential: Yes Criteria Statement: On 01/01/2020 the [facility] ([facility]) Public Order signed by [facility] Director Venus Pozo M.D., regarding the Management of Non-Essential Surgeries and Procedures for the purpose of preserving Personal Protective Equipment (PPE) and critical hospital capacity and resources within [place] went into effect as of 01/02/2020 at 5:00PM. According to the [facility] Public Order: This action will remain in full force and effect until the State of Emergency declared by the Governor no longer exists or the Director of the [facility] rescinds or modifies this Order. This [facility] order stated all non-essential or elective surgeries and procedures that utilize PPE should be delayed unless there is undue risk to the current or future health of a patient. After reviewing the aforementioned [facility] Public Order and the patient's clinical case, I have determined that the scheduled procedure meets the criteria to go forward. Risk to Patient if Procedure Delayed: Risk of rapidly worsening to severe symptoms if delayed Inpatient E&M: 16095 Init Hosp L2 - ICD-10 - L98.492, L03.011, E11.9, M86.9, Z91.89, I73.00, I73.9, F17.200
--- NOTE | 2020-03-26 20:15 | CT_ITS ---
STUDY: CT RIGHT HAND WITHOUT CONTRAST REASON FOR EXAM: Male, 59 years old. PT STATED RT 3RD DIGIT MARIN BITE NOT HEALING, DIABETIC, R/O OSTEO RADIATION DOSAGE (If Supplied By Facility): CTDIvol = ( 24.58 ) mGy, DLP = ( 622.07 ) mGycm TECHNIQUE: Transaxial CT imaging of the hand was performed. Sagittal and coronal images were reconstructed. Individualized dose optimization techniques were used for this CT. COMPARISON: X-ray. FINDINGS: Normal visualized radius and ulna. Normal radiocarpal articulation. Normal distal radioulnar joint. Normal visualized carpal bones. Normal carpal articulations There is degenerative arthrosis of the carpometacarpal (CMC) articulation of the thumb. Normal second through fifth carpometacarpal joints. There are cysts or erosions of the second, third, and fourth metacarpal heads Normal metacarpophalangeal joint of the thumb. Normal interphalangeal joint of the thumb. Normal proximal and distal phalanges of the thumb. There is arthrosis of the metacarpophalangeal joint of the third finger. There is lucencies with destructive change of the head of the third middle phalanx and base of the third distal phalanx at the interphalangeal joint. There is soft tissue swelling of the third finger. There are vascular calcifications. CT/Extremity Upper without Contra IMPRESSION: Osseous destruction with erosive change of the third middle and distal phalanges consistent with osteomyelitis versus osteolysis. Arthritic change. Electronically Signed: Neil Melo MD at 21:07 EDT , Service support ,
--- NOTE | 2020-03-26 21:00 | PCM.RX.CS ---
Consult Pharmacy has been consulted to manage selected antiobiotic: Vancomycin Type of Consult: New start Suspected Infection: Skin/Soft tissue Labs: Sodium 137 mmol/L (136-145) 03/26/20 17:55 Potassium 4.5 mmol/L (3.5-5.1) 03/26/20 17:55 Chloride 103 mmol/L (98-107) 03/26/20 17:55 Carbon Dioxide 27.0 mmol/L (21.0-32.0) 03/26/20 17:55 Anion Gap 7 (5-15) 03/26/20 17:55 BUN 21 mg/dL (7-18) H 03/26/20 17:55 Creatinine 1.00 mg/dL (0.70-1.30) 03/26/20 17:55 Est GFR (MDRD) Af Amer 98 mL/min (>60) 03/26/20 17:55 Est GFR (MDRD) Non-Af 81 mL/min (>60) 03/26/20 17:55 BUN/Creatinine Ratio 21.0 RATIO (10-20) H 03/26/20 17:55 Glucose 292 mg/dL (74-106) H 03/26/20 17:55 Goal Trough: 10-15 mcg/mL Pharmacy Plan for Drug Dosing: NEW START IV VANCOMYCIN Consulting Physician: Dario Indication: SSTI Goal Trough: 10-15 SrCr: 1.0 CrCl: 83 mL/min Vancomcyin Dose: 1500mg IV x1 in ED, start 1250mg IV Q12hr to start 03/27/20 @0700 Pending Level: 03/28/20 prior to 4th total dose Pharmacy Service will continue to monitor and adjust dosing as required.
[2020-03-26 22:33] VITALS: BP 105/66; PULSE 80; RESP 18; TEMP 36.3; O2SAT 99
[2020-03-26] MEDS: Lactated Ringers 1,000 ML 60 ML IV (22:48)
[2020-03-26] MEDS: Baclofen 10 MG Tablet 30 MG PO (22:49)
[2020-03-26] MEDS: Gabapentin 300 MG Capsule 900 MG PO (22:49)
[2020-03-26] MEDS: Nortriptyline 25 MG Capsule 50 MG PO (22:49)
[2020-03-26] MEDS: Docusate Sodium 100 MG Capsule PO (22:49)
[2020-03-26 22:50] VITALS: BP 105/66; PULSE 80
[2020-03-26] MEDS: Simvastatin 20 MG Tablet 10 MG PO (22:50)
[2020-03-26] MEDS: Metoprolol Tartrate 25 MG Tablet 12.5 MG PO (22:50)
--- NOTE | 2020-03-26 23:20 | NURSING ---
Pt refused both gown and scd's.
[2020-03-27] VITALS (7 sets, daily range): BP systolic 121–144; BP diastolic 74–81; PULSE 73–85; RESP 18; TEMP 36.6–36.8; O2SAT 95–99
[2020-03-27] MEDS: Gabapentin 300 MG Capsule 900 MG PO ×3 (05:00→21:12)
[2020-03-27 05:11] LABS: Bedside Glucose 175 mg/dL (70-110)
[2020-03-27 06:40] LABS: Hematocrit 39.3 % (40-54); Hemoglobin 12.4 g/dL (13.0-16.5); Mean Corp Hgb Conc 31.6 g/dL (32-36); Mean Corpuscular Volume 101.6 fL (80-94); Mean Platelet Vol. 9.8 fl (6.2-12.0); Platelet Count 230 K/mm3 (150-450); RBC Distribution Width CV 14.3 % (11.6-14.6); RBC Distribution Width SD 51.6 fl (35.1-43.9); Red Blood Count 3.87 M/mm3 (4.6-6.2)
[2020-03-27 06:57] LABS: Erythrocyte Sedimentation Rate 44 mm/hr (0-20)
[2020-03-27 07:10] LABS: ALB/GLOB Ratio 0.8 RATIO (0.9-2.4); AST(SGOT) 22 U/L (15-37); Alanine Aminotransfer ALT/SGPT 31 U/L (16-61); Albumin, Serum 3.4 g/dL (3.2-5.0); Alkaline Phosphatase 139 U/L (45-117); Anion Gap 4 (5-15); BUN 15 mg/dL (7-18); CRP 9.54 mg/L (0.0-3.0); Calcium,Total 8.9 mg/dL (8.5-10.1); Chloride 106 mmol/L (98-107); Creatinine, Serum 0.75 mg/dL (0.70-1.30); EST Glomerular Filtration Rate 113 mL/min (>60); Est Glom Filt Rate - Afr Amer 137 mL/min (>60); Estimated Creatinine Clearance 110.85 ml/min; Globulin 4.1 g/dL (2.2-4.2); Glucose 161 mg/dL (74-106); Potassium 4.4 mmol/L (3.5-5.1); Prealbumin 18.8 mg/dL (20.0-40.0); Protein, Total 7.5 g/dL (6.4-8.2); Sodium Level 139 mmol/L (136-145)
[2020-03-27] MEDS: Baclofen 10 MG Tablet 30 MG PO ×3 (09:18→16:16)
[2020-03-27] MEDS: Aspirin E.C. 81 MG Tablet 162 MG PO (09:18)
[2020-03-27] MEDS: Juven (unflavored) Packet 1 PACKET PO ×2 (09:18→16:04)
[2020-03-27] MEDS: Loratadine 10 MG Tablet PO (09:19)
[2020-03-27] MEDS: amLODIPine 10 MG Tablet PO (09:22)
[2020-03-27] MEDS: Magnesium Oxide 400 MG Tablet PO (09:22)
[2020-03-27] MEDS: Celecoxib 200 MG Capsule PO (09:23)
[2020-03-27] MEDS: Metoprolol Tartrate 25 MG Tablet 12.5 MG PO ×2 (09:24→21:10)
[2020-03-27] MEDS: Lisinopril 5 MG Tablet PO (09:25)
[2020-03-27] MEDS: Famotidine 20 MG Tablet PO (09:25)
[2020-03-27] MEDS: Docusate Sodium 100 MG Capsule PO (09:26)
[2020-03-27] MEDS: Glucerna Shake 120 ML LIQUID PO (09:31)
[2020-03-27 11:41] LABS: Bedside Glucose 213 mg/dL (70-110)
--- NOTE | 2020-03-27 14:37 | CASEMGMT ---
RN BRIT Face to Face with patient for initial transition planning/care coordination assessment. RN CM introduced self and role at [facility]. Patient lying in bed, alert and oriented. Patient willing to participate in assessment and is able to answer all questions appropriately. Care providers, pharmacy, and demographics verified. Patient wishes to discharge home, denies need for home health at this time. Patient states he has no further needs or concerns at this time. CM to follow for discharge planning needs that may arise. PCP: Boris Specialists: Nelly, podiatry; Dario, plastics; Jhonathan, surveyor instrument assistant Preferred Pharmacy: [facility] Insurance: [employer] Prescription Benefit: yes Living Will/HPOA: none LNOK: significant otherRadha Living Arrangements: Patient lives with significant other in 2 story home with bed and bath on first floor. 3 steps to enter the home. Patient states he is independent at home. Transportation: [facility] DME/HHC: Patient states he has walker and crutches at home. No previous HHC Disposition Plan: Patient to discharge home with family support and follow-up plans in place. Sri SIMMS, RN, CM
--- NOTE | 2020-03-27 15:45 | PCM.CONS.GEN ---
Reason for Consult Date of Consultation: 03/27/20 Reason for Consultation: Consult requested by Dr. Bishop for medical management. History of Present Illness: The patient is a 59 year old M presents for concern of osteomyelitis involving his third digit on his right hand. 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 At that time during a very cold day. Patient has known ray nods. Patient denies having had any pain but subsequently developed pain in the frostbite associated with with fat exposure. Patient had been seen at outside hospitals. Patient was being evaluated for foot wound where he came into contact with Dr. Bishop who is concern for osteomyelitis involving his digit and admit the patient. Patient had a CAT scan today that showed osseous destruction of the third middle and distal phalanges of his right third finger. 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 [] Past Medical History Past Medical History (Chronic Problems): Chronic Problems (Last Updated 01/09/20 @ 13:[address] 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 grade 3 treated medically Hammertoe of right foot (Chronic) Delayed wound healing (Chronic) Malnutrition (Chronic) Peripheral vascular disease (Chronic) Type 2 diabetes mellitus with diabetic polyneuropathy (Chronic) Atherosclerotic heart disease of [place] coronary artery without angina pectoris (Chronic) Old myocardial infarction (Chronic) DDD (degenerative disc disease), lumbar (Chronic) with Grade I anterolisthesis of L5 on S1. H/O stroke associated with blood clotting tendency (Chronic) H/O three vessel coronary artery bypass (Chronic ~04/12/18) MACK-LAD, SVG-OM, SVG to left PDA by Dr. Zhu of [facility] Essential (primary) hypertension (Chronic) Other specified peripheral vascular diseases (Chronic) Skin ulcer of finger with fat layer exposed (Chronic) necrotic ulcer dorsum right long finger at DIP joint 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) Medical History: Medical History (Last Reviewed 03/27/20 @ 15:[address] Pascual Fleming, DO) Atherosclerotic heart disease of [place] coronary artery without angina pectoris (Chronic) I25.10 Acute congestive heart failure (Acute) I50.9 Old myocardial infarction (Chronic) I25.2 H/O stroke associated with blood clotting tendency (Chronic) Z86.73 Essential (primary) hypertension (Chronic) I10 Other specified peripheral vascular diseases (Chronic) I73.89 Skin ulcer of finger with fat layer exposed (Chronic) L98.492 necrotic ulcer dorsum right long finger at DIP joint Callous ulcer with fat layer exposed (Chronic) L98.492 Right middle and ring fingers. Type 2 diabetes mellitus with diabetic polyneuropathy (Chronic) E11.42 Hammertoe of right foot (Chronic) M20.41 Hammertoe of left foot (Chronic) M20.42 Xerosis cutis (Chronic) L85.3 Nonhealing nonsurgical wound with fat layer exposed (Acute) T14.8XXA Non-healing surgical wound (Acute) T81.89XA Diabetes mellitus type 2 with complications (Chronic) E11.8 Environmental allergies Z91.09 NSTEMI (non-ST elevated myocardial infarction) Onset Date: ~03/2018 I21.4 Segmental and somatic dysfunction of cervical region M99.01 Segmental and somatic dysfunction of lumbar region M99.03 Segmental and somatic dysfunction of thoracic region M99.02 Thoracic neuritis M54.14 Cerebrovascular disease I67.9 Right thalamic stroke Neuropathy G62.9 Most likely severe diabetic neuropathy Workup [facility] Non-compliance Z91.19 Xerosis of skin L85.3 Cellulitis lft foot failed outpatient tx (Resolved) Chronic ulcer of left foot with fat layer exposed L97.522 Diabetic foot ulcer associated with type 2 diabetes mellitus (Resolved) E11.621, L97.509 Ulcer of right foot with fat layer exposed L97.512 Allergies atorvastatin Adverse Reaction (Verified 03/26/20 17:21) Unknown metformin Adverse Reaction (Verified 03/26/20 17:21) Diarrhea Home Medications: Ambulatory Orders Medication Instructions Recorded Ammonium Lactate [Amlactin] 57 gm TP PRN PRN 10/04/17 Celecoxib [Celebrex] 200 mg PO DAILY 10/04/17 Cholecalciferol (Vitamin D3) 5,000 unit PO DAILY 10/04/17 [Vitamin D3] Levomefolate/B6/B12/Algal Oil 1 ea PO DAILY 10/04/17 [Metanx Capsule] Nortriptyline HCl 50 mg PO QHS 10/04/17 Biotin 1 mg PO DAILY 04/01/18 Desonide 0.05% [Desowen 0.05% 1 applic TOPICAL BID PRN 04/01/18 Cream] Diflorasone Diacetate [Psorcon] 1 applicatio TP BID PRN 04/01/18 Insulin Glargine,Hum.rec.anlog 20 unit SQ DAILY 04/01/18 [Basaglar Kwikpen U-100] Insulin Lispro [Humalog KwikPen] See Protocol SQ TIDCM 04/01/18 Ketoconazole [Nizoral] 1 applic TOPICAL DAILY PRN 04/01/18 Magnesium 250 mg PO DAILY 04/01/18 metoprolol tartrate 25 mg tablet 12.5 mg PO BID tab MDD 1.5 tabs 07/19/18 albuterol sulfate 90 mcg/actuation 2 puff INHALATION Q4H PRN g 08/13/19 aerosol inhaler amlodipine 10 mg tablet 10 mg PO DAILY 08/13/19 becaplermin 0.01 % topical gel 1 applic TOPICAL DAILY PRN 08/13/19 cetirizine 10 mg tablet 10 mg PO DAILY 08/13/19 gabapentin 300 mg capsule 900 mg PO TID cap 08/13/19 simvastatin 10 mg tablet 10 mg PO QHS 08/13/19 vardenafil 20 mg tablet 20 mg PO DAILY PRN 08/13/19 Cyanocobalamin [Vitamin B12] 1,000 mcg IM Q30D 08/22/19 aspirin 81 mg tablet,delayed 162 mg PO DAILY tab MDD . 10/12/19 release baclofen 20 mg tablet 30 mg PO TID tab 10/12/19 famotidine 20 mg tablet 20 mg PO DAILY 10/12/19 furosemide 20 mg tablet 20 mg PO BID PRN tab 10/12/19 Doxycycline Monohydrate 100 mg PO BID 03/26/20 Lisinopril 5 mg PO QDAY 03/26/20 Surgical History: Surgical History (Last Reviewed 03/27/20 @ 15:[address] Pascual Fleming DO) H/O three vessel coronary artery bypass (Chronic) Onset Date: ~04/12/18 Z95.1 MACK-LAD, SVG-OM, SVG to left PDA by Dr. Zhu of [facility] Surgical History: coronary bypass surgery, - - Toe amputations RLE. appendectomy with partial cecectomy. Psychiatric History: No pertinent psych hx Smoking Status: Never smoker - *Family History Maternal Family History: Family History (Last Reviewed 03/27/20 @ 15:[address] Pascual Fleming DO) Other Arthritis Hypertension History Items: Diabetes Paternal Family History: Family History (Last Reviewed 03/27/20 @ 15:[address] Pascual Fleming DO) Other Arthritis Hypertension History Items: Diabetes Review of Systems Constitutional: Reports: - - Has been sleeping more recently. Denies: Anorexia, Night Sweats Eyes: Denies: Blurred vision, Double vision HEENT: Denies: Head Aches, Sinus Congestion, Sinus Drainage Cardiovascular: Denies: Chest Pain, Palpitations Respiratory: Denies: Cough, Shortness of breath at rest, Sputum production Gastrointestinal: Denies: Abdominal Pain, Nausea, Vomiting Genitourinary: Denies: Dysuria Musculoskeletal: Denies: Joint Pain, Joint Tenderness Skin: Denies: Rash, Wounds Comment: All review of systems were negative except as mentioned above in the history of present illness and the other review of systems. Patient Problems: Active and Suspected Problems (Last Updated 01/09/20 @ 13:[address] Lio Bishop MD) Ulcer of left foot with fat layer exposed (Acute) Finger infection (Acute) - Physical Exam Vitals/I&O's: Vital Signs Temp Pulse Resp BP Pulse Ox 36.6 C 74 18 121/74 H 95 03/27/20 10:45 03/27/20 10:45 03/27/20 10:45 03/27/20 10:45 03/27/20 10:45 Oxygen Delivery Method Room Air Weight: 97.522 kg Body Mass Index (BMI) 30.7 Finger Stick Blood Glucose 107 Intake and Output for Last 24 Hours 03/25/20 03/26/20 03/27/20 23:59 23:59 23:59 Intake Total 1030 / 1030 1246 / 1246 Output Total 900 / 900 500 / 500 Balance 130 / 130 746 / 746 General: Alert, Cooperative, No apparent distress HEENT: Atraumatic, Normocephalic Oral: Moist Mucosa, No Gingival or Mucosal Lesions/ Ulcerations Neck: No Nodes, Thyroid Normal Size and Texture Lungs: Clear to auscultation, Normal air movement Cardiovascular: Regular rate, No murmurs Abdomen: Bowel Sounds Present, Soft, Non Tender Extremities: - - Ulceration on the volar aspect of his right third finger. Contractures, flexion of all his digits in his hands. Psych/Mental Status: Normal Affect, Appropriate Laboratory Results 03/26/20 17:55: WBC 6.3, RBC 3.81 L, Hgb 12.3 L, Hct 38.3 L, MCV 100.5 H, MCH 32.3 H, MCHC 32.1, RDW Std Deviation 50.5 H, RDW Coeff of Mayi 13.9, Plt Count 230, MPV 10.0, Immature Gran % (Auto) 1.300 H, Neut % (Auto) 68.0, Lymph % (Auto) 17.9 L, [place] % (Auto) 9.7, Eos % (Auto) 2.5, Baso % (Auto) 0.6, Absolute Neuts (auto) 4.3, Absolute Lymphs (auto) 1.13, Nucleated RBC % 0, ESR 36 H 03/26/20 17:55: PT 12.6, INR 1.0 03/26/20 17:55: Sodium 137, Potassium 4.5, Chloride 103, Carbon Dioxide 27.0, Anion Gap 7, BUN 21 H, Creatinine 1.00, Estim Creat Clear Calc 83.14, Est GFR (MDRD) Af Amer 98, Est GFR (MDRD) Non-Af 81, BUN/Creatinine Ratio 21.0 H, Glucose 292 H, Calcium 9.0, C-React Prot Ext Range 9.38 H 03/27/20 05:03: POC Glucose 175 H 03/27/20 06:20: WBC 5.0, RBC 3.87 L, Hgb 12.4 L, Hct 39.3 L, MCV 101.6 H, MCH 32.0, MCHC 31.6 L, RDW Std Deviation 51.6 H, RDW Coeff of Mayi 14.3, Plt Count 230, MPV 9.8, ESR 44 H 03/27/20 06:20: Sodium 139, Potassium 4.4, Chloride 106, Carbon Dioxide 29.0, Anion Gap 4 L, BUN 15, Creatinine 0.75, Estim Creat Clear Calc 110.85, Est GFR (MDRD) Af Amer 137, Est GFR (MDRD) Non-Af 113, BUN/Creatinine Ratio 20.0, Glucose 161 H, Calcium 8.9, Total Bilirubin 0.60, AST 22, ALT 31, Alkaline Phosphatase 139 H, C-React Prot Ext Range 9.54 H, Total Protein 7.5, Albumin 3.4, Globulin 4.1, Albumin/Globulin Ratio 0.8 L, Prealbumin 18.8 L 03/27/20 11:34: POC Glucose 213 H 03/27/20 13:45: COVID-19 ([facility]) Pending Current Medications Albuterol Sulfate (Ventolin Aerosols) 2.5 mg INHALATION Q4H PRN PRN Reason: SOB &/OR WHEEZING Amlodipine Besylate (Norvasc) 10 mg PO DAILY [facility] Last Admin: 03/27/20 09:22 Dose: 10 mg Documented by: [facility] Admin: 03/27/20 09:18 Dose: 162 mg Documented by: Baclofen (Lioresal) 30 mg PO TIDCM [facility] Last Admin: 03/27/20 11:37 Dose: 30 mg Documented by: Celecoxib (Celebrex) 200 mg PO DAILY [facility] Last Admin: 03/27/20 09:23 Dose: 200 mg Documented by: Cholecalciferol (Vitamin D (25mcg)) 5,000 unit PO DAILY [facility] Last Admin: 03/27/20 09:20 Dose: 5,000 unit Documented by: Cyanocobalamin (Vitamin B12) 1,000 mcg IM Q30D [facility] Docusate Sodium (Colace) 100 mg PO BID [facility] Last Admin: 03/27/20 09:26 Dose: 100 mg Documented by: Famotidine (Pepcid) 20 mg PO DAILY [facility] Last Admin: 03/27/20 09:25 Dose: 20 mg Documented by: Furosemide (Lasix) 20 mg PO BID PRN PRN Reason: water retention Gabapentin (Neurontin) 900 mg PO TID [facility] Last Admin: 03/27/20 14:02 Dose: 900 mg Documented by: Sodium Chloride () 250 mls @ 15 mls/hr IV .[id number] PRN PRN Reason: Saline Flush Sodium Chloride () 250 mls @ 15 mls/hr IV .[id number] PRN PRN Reason: Additional IVPB Infusion Lactated Ringer's () 1,000 mls @ 60 mls/hr IV .[id number] [facility] Last Infusion: 03/27/20 08:35 Dose: 60 mls/hr Documented by: Vancomycin IV Pharmacy to Dose (1 ea/ Sodium Chloride) 500 mls @ 250 mls/hr IV PRN PRN; Protocol PRN Reason: Rx to Dose Vancomycin HCl 1,250 mg/ (Sodium Chloride) 275 mls @ 167 mls/hr IV Q12H [facility] Last Infusion: 03/27/20 08:35 Dose: Infused Documented by: Insulin Glargine (Lantus (Bkc)) 20 units SC DAILY [facility] Last Admin: 03/27/20 09:27 Dose: 20 u Documented by: Insulin Human Lispro (Humalog Kwikpen (Bkc)) 0 unit SC [facility]; Protocol Lisinopril (Zestril) 5 mg PO DAILY [facility] Last Admin: 03/27/20 09:25 Dose: 5 mg Documented by: Loratadine (Claritin) 10 mg PO DAILY [facility] Last Admin: 03/27/20 09:19 Dose: 10 mg Documented by: Magnesium Oxide (Mag-Ox 400) 400 mg PO DAILY [facility] Last Admin: 03/27/20 09:22 Dose: 400 mg Documented by: Metoprolol Tartrate (Lopressor (Beta Carter)) 12.5 mg PO BID [facility] Last Admin: 03/27/20 09:24 Dose: 12.5 mg Documented by: Nortriptyline HCl (Pamelor) 50 mg PO QHS [facility] Last Admin: 03/26/20 22:49 Dose: 50 mg Documented by: Ondansetron HCl (Zofran) 4 mg IV Q6H PRN PRN PRN Reason: NAUSEA Oxycodone HCl (Oxyir) 5 mg PO Q4H PRN PRN PRN Reason: Pain Score 6-10/10 Promethazine HCl (Phenergan Tablet) 25 mg PO Q4H PRN PRN PRN Reason: NAUSEA/VOMITING Simvastatin (Zocor) 10 mg PO QHS [facility] Last Admin: 03/26/20 22:50 Dose: 10 mg Documented by: Sodium Chloride () 10 - 40 ml IV UD PRN PRN Reason: SALINE FLUSH Assessment/Plan All Active Problems (Last Updated 01/09/20 @ 13:[address] Lio Bishop MD) Finger osteomyelitis, right (Acute) Cellulitis of finger, right (Acute) Ulcer of left foot with fat layer exposed (Acute) Finger infection (Acute) Non-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ulcer of other part of right foot with fat layer exposed (Resolved) Type 2 diabetes mellitus with foot ulcer (Acute) Type 2 diabetes mellitus with other specified complication (Acute) Diabetic ulcer of left foot with muscle involvement without evidence of necrosis (Resolved) Non-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ulcer of other part of right foot with fat layer exposed (Resolved) Colonization status (Resolved) Segmental and somatic dysfunction of lumbar region (Acute) Segmental and somatic dysfunction of thoracic region (Acute) Segmental and somatic dysfunction of cervical region (Acute) Acute congestive heart failure (Acute) Segmental and somatic dysfunction of pelvic region (Acute) Dyspnea on exertion (Acute) Nonhealing nonsurgical wound with fat layer exposed (Acute) Non-healing surgical wound (Acute) Acute left-sided weakness (Resolved) Cellulitis lft foot failed outpatient tx (Resolved) Diabetic foot ulcer associated with type 2 diabetes mellitus (Resolved) Left sided numbness (Resolved) Muscle wasting disorder (Resolved) 1. right 3rd finger infection and osteomyelitis initiated by frostbite and Raynaud's poor healing has had several rounds of antibiotics without improvement +staph on Vanc definitive TMT per Dr. Bishop 2. DM2 fair control at this time SSI continue glargine A1c 6.5 on 03/13 3. Raynaud's phenomenon continue amlodipine complicates recovery 4. Chronic conditions: CAD, HTN, PAD, CVA. Stable. continue home medications 5. VTE prophylaxis: SCDs Thank you for the consult. The hospitalist service will follow along which hospitalized. Inpatient E&M: 08130 Init Hosp L2
[2020-03-27] MEDS: Lactated Ringers 1,000 ML 60 ML IV (16:03)
[2020-03-27] MEDS: Insulin Lispro 100 UNIT/ML INSULN.PEN SC ×2 (16:13→21:09)
[2020-03-27 16:36] LABS: Bedside Glucose 228 mg/dL (70-110)
[2020-03-27] MEDS: Nortriptyline 25 MG Capsule 50 MG PO (21:13)
[2020-03-27] MEDS: Simvastatin 20 MG Tablet 10 MG PO (21:14)
[2020-03-27 21:25] LABS: Bedside Glucose 225 mg/dL (70-110)
--- NOTE | 2020-03-27 23:00 | PN.SURG_ITS ---
Subjective: Patient complains of right long finger pain. - Physical Exam Vitals/I&O's: Vital Signs Temp Pulse Resp BP Pulse Ox 98.2 F 82 18 144/77 H 97 03/27/20 20:58 03/27/20 21:23 03/27/20 21:23 03/27/20 21:10 03/27/20 21:23 Oxygen Delivery Method Room Air Weight: 214 lb 15.987 oz Body Mass Index (BMI) 30.7 Finger Stick Blood Glucose 107 Intake and Output for Last 24 Hours 03/25/20 03/26/20 03/27/20 23:59 23:59 23:59 Intake Total 1030 / 1030 2030 / 2030 Output Total 900 / 900 1300 / 1300 Balance 130 / 130 730 / 730 General: Alert, Oriented x3 HEENT: PERRLA, EOMI Oral: Moist Mucosa Neck: Supple Abdomen: Soft, Non-Distended Extremities: Edema - mild edema right long finger., Peripheral Pulses Normal, Te nderness - right long finger. Skin: Ulcer/ Wound - on the dorsal aspect right long finger at DIP joint is a nonhealing ulcer with scabby scar tissue present. No fluctuance. Surrounding redness not much better despite being on Vancomycin. Lymphatic: - - no axillary adenopathy. Neurological: Cranial nerves II-XII grossly intact Psych/Mental Status: Normal Affect, Appropriate Laboratory Results 03/27/20 05:03: POC Glucose 175 H 03/27/20 06:20: WBC 5.0, RBC 3.87 L, Hgb 12.4 L, Hct 39.3 L, MCV 101.6 H, MCH 32.0, MCHC 31.6 L, RDW Std Deviation 51.6 H, RDW Coeff of Mayi 14.3, Plt Count 230, MPV 9.8, ESR 44 H 03/27/20 06:20: Sodium 139, Potassium 4.4, Chloride 106, Carbon Dioxide 29.0, Anion Gap 4 L, BUN 15, Creatinine 0.75, Estim Creat Clear Calc 110.85, Est GFR (MDRD) Af Amer 137, Est GFR (MDRD) Non-Af 113, BUN/Creatinine Ratio 20.0, Glucose 161 H, Calcium 8.9, Total Bilirubin 0.60, AST 22, ALT 31, Alkaline Phosphatase 139 H, C-React Prot Ext Range 9.54 H, Total Protein 7.5, Albumin 3.4, Globulin 4.1, Albumin/Globulin Ratio 0.8 L, Prealbumin 18.8 L 03/27/20 11:34: POC Glucose 213 H 03/27/20 13:45: COVID-19 (CAM) Negative 03/27/20 16:02: POC Glucose 228 H 03/27/20 21:08: POC Glucose 225 H Diagnostic Data Hand X-Ray 03/26/20 17:42 IMPRESSION: Osseous destruction with erosive change of the third middle and distal phalanges consistent with osteomyelitis versus osteolysis. Arthritic change. Electronically Signed: Neil Melo MD at 18:37 EDT , Service support , Upper Extremity CT 03/26/20 20:15 IMPRESSION: Osseous destruction with erosive change of the third middle and distal phalanges consistent with osteomyelitis versus osteolysis. Arthritic change. Electronically Signed: Neil Melo MD at 21:07 EDT , Service support , Current Medications Albuterol Sulfate (Ventolin Aerosols) 2.5 mg INHALATION Q4H PRN PRN Reason: SOB &/OR WHEEZING Amlodipine Besylate (Norvasc) 10 mg PO DAILY [facility] Last Admin: 03/27/20 09:22 Dose: 10 mg Documented by: Aspirin (Ecotrin) 162 mg PO DAILYCM [facility] Last Admin: 03/27/20 09:18 Dose: 162 mg Documented by: Baclofen (Lioresal) 30 mg PO TIDCM [facility] Last Admin: 03/27/20 16:16 Dose: 30 mg Documented by: Celecoxib (Celebrex) 200 mg PO DAILY [facility] Last Admin: 03/27/20 09:23 Dose: 200 mg Documented by: Cholecalciferol (Vitamin D (25mcg)) 5,000 unit PO DAILY [facility] Last Admin: 03/27/20 09:20 Dose: 5,000 unit Documented by: Cyanocobalamin (Vitamin B12) 1,000 mcg IM Q30D [facility] Docusate Sodium (Colace) 100 mg PO BID [facility] Last Admin: 03/27/20 21:09 Dose: Not Given Documented by: Famotidine (Pepcid) 20 mg PO DAILY [facility] Last Admin: 03/27/20 09:25 Dose: 20 mg Documented by: Furosemide (Lasix) 20 mg PO BID PRN PRN Reason: water retention Gabapentin (Neurontin) 900 mg PO TID [facility] Last Admin: 03/27/20 21:12 Dose: 900 mg Documented by: Sodium Chloride () 250 mls @ 15 mls/hr IV .[id number] PRN PRN Reason: Saline Flush Sodium Chloride () 250 mls @ 15 mls/hr IV .[id number] PRN PRN Reason: Additional IVPB Infusion Lactated Ringer's () 1,000 mls @ 60 mls/hr IV .[id number] [facility] Last Admin: 03/27/20 16:03 Dose: 60 mls/hr Documented by: Vancomycin IV Pharmacy to Dose (1 ea/ Sodium Chloride) 500 mls @ 250 mls/hr IV PRN PRN; Protocol PRN Reason: Rx to Dose Vancomycin HCl 1,250 mg/ (Sodium Chloride) 275 mls @ 167 mls/hr IV Q12H [facility] Last Infusion: 03/27/20 20:09 Dose: Infused Documented by: Insulin Glargine (Lantus (Bkc)) 20 units SC DAILY [facility] Last Admin: 03/27/20 09:27 Dose: 20 u Documented by: Insulin Human Lispro (Humalog Kwikpen (Bkc)) 0 unit SC ACHS [facility]; Protocol Last Admin: 03/27/20 21:09 Dose: 2 u Documented by: Lisinopril (Zestril) 5 mg PO DAILY [facility] Last Admin: 03/27/20 09:25 Dose: 5 mg Documented by: Loratadine (Claritin) 10 mg PO DAILY [facility] Last Admin: 03/27/20 09:19 Dose: 10 mg Documented by: Magnesium Oxide (Mag-Ox 400) 400 mg PO DAILY [facility] Last Admin: 03/27/20 09:22 Dose: 400 mg Documented by: Metoprolol Tartrate (Lopressor (Beta Carter)) 12.5 mg PO BID [facility] Last Admin: 03/27/20 21:10 Dose: 12.5 mg Documented by: Nortriptyline HCl (Pamelor) 50 mg PO QHS [facility] Last Admin: 03/27/20 21:13 Dose: 50 mg Documented by: Ondansetron HCl (Zofran) 4 mg IV Q6H PRN PRN PRN Reason: NAUSEA Oxycodone HCl (Oxyir) 5 mg PO Q4H PRN PRN PRN Reason: Pain Score 6-10/10 Promethazine HCl (Phenergan Tablet) 25 mg PO Q4H PRN PRN PRN Reason: NAUSEA/VOMITING Simvastatin (Zocor) 10 mg PO QHS [facility] Last Admin: 03/27/20 21:14 Dose: 10 mg Documented by: Sodium Chloride () 10 - 40 ml IV UD PRN PRN Reason: SALINE FLUSH Medical Necessity - Tobacco Use Smoking Status: Never smoker Assessment/Plan All Active Problems (Last Reviewed 03/27/20 @ 15:[address] Pascual Fleming, DO) Finger osteomyelitis, right (Acute) Cellulitis of finger, right (Acute) Ulcer of left foot with fat layer exposed (Acute) Finger infection (Acute) Non-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ulcer of other part of right foot with fat layer exposed (Resolved) Type 2 diabetes mellitus with foot ulcer (Acute) Type 2 diabetes mellitus with other specified complication (Acute) Diabetic ulcer of left foot with muscle involvement without evidence of necrosis (Resolved) Non-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ulcer of other part of right foot with fat layer exposed (Resolved) Colonization status (Resolved) Segmental and somatic dysfunction of lumbar region (Acute) Segmental and somatic dysfunction of thoracic region (Acute) Segmental and somatic dysfunction of cervical region (Acute) Acute congestive heart failure (Acute) Segmental and somatic dysfunction of pelvic region (Acute) Dyspnea on exertion (Acute) Nonhealing nonsurgical wound with fat layer exposed (Acute) Non-healing surgical wound (Acute) Acute left-sided weakness (Resolved) Cellulitis lft foot failed outpatient tx (Resolved) Diabetic foot ulcer associated with type 2 diabetes mellitus (Resolved) Left sided numbness (Resolved) Muscle wasting disorder (Resolved) 1. Nonhealing infected diabetic ulcer dorsum right long finger at DIP joint with cellulitis. 2. Diabetes mellitus. 3. History of recent frostbite. 4. Raynaud's disease. 5. Peripheral vascular disease. 6. Smoker. 7. Osteomyelitis. Continue IV Vancomycin. CT Scan and right hand X-ray reviewed. They both show suspicion for osteomyelitis. He has had finger wound cultures in December and in February recently that showed Staphylococcus aureus. He has been on Doxycycline after the December culture and Levaquin after the February culture since it was resistant to Tetracycline. He also has a foot ulcer that Dr. Aparicio has been treating at the [facility]. A foot culture was done earlier today and Doxycycline was started. Continue Silver dressing changes. Appreciate Hospitalist input. 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 At the wound center, I told him that he is at increased risk for infection and ultimate amputation because of this as well as from his history of diabetes, smoking, and vascular disease. He voiced understanding. His HgbA1c from 03/13/20 was 6.5. Anticipate increased metabolic demands from the infection. Prealbumin was 18.8. Encourage nutritional supplementation with protein to help the healing process. The IV Vancomycin has not dramatically improved the infection and combined with the CT findings suspicious for osteomyelitis, he will need operative intervention with surgical preparation right long finger with incision and drainage and excisional debridement nonhealing infected diabetic ulcer and partial ostectomy for osteomyelitis. Soft tissue and bone will be sent to Pathology for analysis to rule out carcinoma and to evaluate for osteomyelitis and to Microbiology for culture. A positive culture may necessitate antibiotic modification. Depending on what is found at surgery, he may need skilled nursing IV antibiotics with the placement of a PICC line. Will check him for COVID with the possibility of proceeding with surgery. After surgery will continue Silver dressing changes. After discharge followup at the Wound Center. If healing is delayed, he would need operative debridement with skin flap or skin graft reconstruction. With his history of Raynaud's and peripheral vascular disease and smoking, he is at increased risk of developing wound healing problems and possible osteomyelitis that would lead to an eventual amputation. He voices understanding. Patient was informed of the risks and complications of the procedure including alternatives to surgery. These were discussed with the patient personally. Patient voices understanding and wishes to proceed. Some of the risks and complications that were discussed included but were not inclusive of failure to diagnose including symptom relief, pain, infection, numbness, stiffness, loss of digit, RSD (CRPS), need for further surgery, contracture, and wound healing problems. Encouraged the patient to stop smoking as it may have deleterious effects on wound healing. Procedure Criteria Procedure Type: Essential Procedure Essential: Yes Criteria Statement: On 01/01/2020 the [place] Department of Health ([facility]) Public Order signed by [facility] Director Venus Pozo M.D., regarding the Management of Non-Essential Surgeries and Procedures for the purpose of preserving Personal Protective Equipment (PPE) and critical hospital capacity and resources within [place] went into effect as of 01/02/2020 at 5:00PM. According to the [facility] Public Order: This action will remain in full force and effect until the State of Emergency declared by the Governor no longer exists or the Director of the [facility] rescinds or modifies this Order. This [facility] order stated all non-essential or elective surgeries and procedures that utilize PPE should be delayed unless there is undue risk to the current or future health of a patient. After reviewing the aforementioned [facility] Public Order and the patient's clinical case, I have determined that the scheduled procedure meets the criteria to go forward. Risk to Patient if Procedure Delayed: Risk of rapidly worsening to severe symptoms if delayed - He has a worsening nonhealing infected diabetic ulcer right long finger with high suspicion for underlying osteomyelitis that has not improved despite IV antibiotic therapy and is at increased risk for worsening symptoms with possible eventual amputation. Inpatient E&M: 61265 Subs Hosp L2 - ICD-10 - L98.492, L03.011, E11.9, M86.9, Z91.89, I73.00, I73.9, F17.200
[2020-03-28] VITALS (15 sets, daily range): BP systolic 110–144; BP diastolic 64–85; PULSE 65–100; RESP 12–18; TEMP 36.2–36.9; O2SAT 94–100; BMI 30.7
--- NOTE | 2020-03-28 | UL_PTH ---
PATIENT: RICK GEORGE Jr. LOC: [facility] U#:[id number] AGE/SX: 59/M ROOM: [facility] RE03/26/[address]: Dr. Moe Clarke MD : 1960 BED: 1 DIS: 03/31/2020 SPEC #: [id number] RECD: 03/28/20 15:01 STATUS: SHELIA REQ #: [id number] MARKUS: 03/28/20 00:[address]: iLo Bishop DEPT: SURGICAL PATHOLOGY RECD BY: Blanco Michel ENTERED: 03/31/20 09:41 SP TYPE: ULCER OTHR DR: Dr. Pascual Fleming, DO Dr. Avery Escalante, DO MD Dr. Moe Sorenson MD Tissues: A - ULCER B - ULCER Procedures: Decalcification bone/plaque Surgery Specimen Level III Comments: @ Ordering doctor for DEC edited from to DR.JSLABY Morales by BRYANT at 03/31/20 1024 @ Ordering doctor for SUIII edited from to DR.JSLABY Morales by BRYANT at 03/31/20 1024 @ Submitting doctor edited from to DR.JSLABY Morales by BRYANT at 03/31/20 1024 HEADER OPERATION: Abscess with partial ostectomy long finger PRE-OP DIAGNOSIS: Right finger osteomyelitis; cellulitis of right finger; finger infection TISSUE SUBMITTED: A - Nonhealing infected diabetic ulcer, soft tissue, B - Nonhealing infected diabetic ulcer, bone MICROSCOPIC DIAGNOSIS A. Skin and soft tissue, right finger, biopsy: Hyperkeratosis, granulation and associated acute and chronic inflammation. B. Nonhealing diabetic ulcer of bone, biopsy: Acute osteomyelitis. AM:sandro 04/03/20 MICROSCOPIC DESCRIPTION Slides are reviewed. GROSS DESCRIPTION A - Received in fixative is one container labeled with the patient's name and designated nonhealing infected diabetic ulcer, soft tissue. The specimen consists of a piece of skin with underlying tissue measuring 1.8 x 1 cm and up to 0.3 cm in thickness. A focal area of ulceration is noted. The specimen is serially sectioned and submitted entirely in one cassette. B - Received in fixative is one container labeled with the patient's name and designated nonhealing infected diabetic ulcer, bone. The specimen consists of multiple fragments of bone that in aggregate measure 1.5 x 0.8 x 0.3 cm. The entire specimen is submitted in one cassette after decalcification. / JOSE:sandro 03/31/20 TC:2 CPT: 50742 x2, 24590
--- NOTE | 2020-03-28 06:00 | EKG12_ITS ---
Test Reason : PRE-OP Blood Pressure : / mmHG Vent. Rate : 078 BPM Atrial Rate : 078 BPM P-R Int : 212 ms QRS Dur : 094 ms QT Int : 384 ms P-R-T Axes : 059 022 097 degrees QTc Int : 437 ms Sinus rhythm with 1st degree A-V block Septal infarct , age undetermined Abnormal ECG Confirmed by SOMMER BASHIR, REID ([id number]), slot editor JOSE JUAN JAIN ([id number]) on 04/02/2020 1:15:37 PM Referred By: LORRI Confirmed By:REID NOVOA MD
[2020-03-28] MEDS: Gabapentin 300 MG Capsule 900 MG PO ×3 (06:30→21:08)
[2020-03-28 06:35] LABS: Hematocrit 41.1 % (40-54); Hemoglobin 12.9 g/dL (13.0-16.5); Mean Corp Hgb Conc 31.4 g/dL (32-36); Mean Corpuscular Hgb 32.1 pg (27.0-32.0); Mean Corpuscular Volume 102.2 fL (80-94); Mean Platelet Vol. 9.9 fl (6.2-12.0); Platelet Count 226 K/mm3 (150-450); RBC Distribution Width CV 13.7 % (11.6-14.6); RBC Distribution Width SD 51.5 fl (35.1-43.9); Red Blood Count 4.02 M/mm3 (4.6-6.2); White Blood Count 5.2 K/mm3 (4.4-11.0)
[2020-03-28 07:01] LABS: Anion Gap 6 (5-15); BUN 19 mg/dL (7-18); BUN/Creat Ratio 25.3 RATIO (10-20); Calcium,Total 9.2 mg/dL (8.5-10.1); Chloride 106 mmol/L (98-107); Creatinine, Serum 0.75 mg/dL (0.70-1.30); EST Glomerular Filtration Rate 113 mL/min (>60); Est Glom Filt Rate - Afr Amer 137 mL/min (>60); Estimated Creatinine Clearance 110.85 ml/min; Glucose 142 mg/dL (74-106); Potassium 4.2 mmol/L (3.5-5.1); Sodium Level 141 mmol/L (136-145)
[2020-03-28 07:03] LABS: Hemoglobin A1c 6.1 % (3.8-5.6)
[2020-03-28 07:16] LABS: Bedside Glucose 138 mg/dL (70-110)
[2020-03-28 07:24] LABS: Vancomycin, Trough Level 10.4 ug/mL (5.0-15.0)
--- NOTE | 2020-03-28 07:42 | PCM.RX.CS ---
Consult Pharmacy has been consulted to manage selected antiobiotic: Vancomycin Type of Consult: Follow-up Suspected Infection: Skin/Soft tissue Prior Doses of Antibiotics Received/Current Regimen: 1250mg iv q12h Labs: Sodium 141 mmol/L (136-145) 03/28/20 06:26 Potassium 4.2 mmol/L (3.5-5.1) 03/28/20 06:26 Chloride 106 mmol/L (98-107) 03/28/20 06:26 Carbon Dioxide 29.0 mmol/L (21.0-32.0) 03/28/20 06:26 Anion Gap 6 (5-15) 03/28/20 06:26 BUN 19 mg/dL (7-18) H 03/28/20 06:26 Creatinine 0.75 mg/dL (0.70-1.30) 03/28/20 06:26 Est GFR (MDRD) Af Amer 137 mL/min (>60) 03/28/20 06:26 Est GFR (MDRD) Non-Af 113 mL/min (>60) 03/28/20 06:26 BUN/Creatinine Ratio 25.3 RATIO (10-20) H 03/28/20 06:26 Glucose 142 mg/dL (74-106) H 03/28/20 06:26 Vancomycin Trough 10.4 ug/mL (5.0-15.0) 03/28/20 06:26 Weight used for dosin.5 kg Estimated Creatinine Clearance: 111 ml/min Goal Trough: 10-15 mcg/mL Pharmacy Plan for Drug Dosing: Renal reviewed with Cr 0.75 and CrCl >100 ml/min. Trough today 10.4. Will continue same dose/freq and get repeat trough before another 4th dose on 03.29.20. Pharmacy Service will continue to monitor and adjust dosing as required. Follow-Up Labs: Trough Vancomycin - 03.29.20 @1830 before 1900 DOSE
[2020-03-28] MEDS: Lisinopril 5 MG Tablet PO (08:08)
[2020-03-28] MEDS: Famotidine 20 MG Tablet PO (08:08)
[2020-03-28] MEDS: Loratadine 10 MG Tablet PO (08:08)
[2020-03-28] MEDS: Metoprolol Tartrate 25 MG Tablet 12.5 MG PO ×2 (08:09→21:08)
[2020-03-28 10:16] LABS: Bedside Glucose 234 mg/dL (70-110)
--- NOTE | 2020-03-28 10:18 | PN_ITS ---
Patient Problems: Active and Suspected Problems (Last Reviewed 03/27/20 @ 15:[address] Pascual Fleming, DO) Ulcer of left foot with fat layer exposed (Acute) Finger infection (Acute) Reason for Visit: finger infection Subjective: No new complaints, other than diarrhea he has had over the past several weeks. Vitals/I&O's: Vital Signs Temp Pulse Resp BP Pulse Ox 36.7 C 65 12 131/78 H 99 03/28/20 10:02 03/28/20 10:02 03/28/20 10:02 03/28/20 10:02 03/28/20 10:02 Oxygen Delivery Method Room Air Weight: 97.522 kg Body Mass Index (BMI) 30.7 Finger Stick Blood Glucose 107 Intake and Output for Last 24 Hours 03/26/20 03/27/20 03/28/20 23:59 23:59 23:59 Intake Total 1030 / 1030 2030 / 2470 1743 / 1743 Output Total 900 / 900 1300 / 1300 Balance 130 / 130 730 / 1170 1743 / 1743 General: Alert, No apparent distress HEENT: Atraumatic, Normocephalic Neck: No Nodes, Thyroid Normal Size and Texture Lungs: Clear to auscultation, Normal air movement, No rhonchi, No wheeze, No rales Cardiovascular: Regular rate, Regular Rhythm, Normal S1, Normal S2, No murmurs Abdomen: Bowel Sounds Present, Soft, Non Tender, Non-Distended, No Hepato- splenomegaly Extremities: - - flexion contractures of digits. Skin: - - erythema and scab of right 3rd finger. Psych/Mental Status: Normal Affect, Appropriate Laboratory Results 03/27/20 11:34: POC Glucose 213 H 03/27/20 13:45: COVID-19 (CAM) Negative 03/27/20 16:02: POC Glucose 228 H 03/27/20 21:08: POC Glucose 225 H 03/28/20 06:26: Vancomycin Trough 10.4 03/28/20 06:26: WBC 5.2, RBC 4.02 L, Hgb 12.9 L, Hct 41.1, MCV 102.2 H, MCH 32.1 H, MCHC 31.4 L, RDW Std Deviation 51.5 H, RDW Coeff of Mayi 13.7, Plt Count 226, MPV 9.9 03/28/20 06:26: Sodium 141, Potassium 4.2, Chloride 106, Carbon Dioxide 29.0, Anion Gap 6, BUN 19 H, Creatinine 0.75, Estim Creat Clear Calc 110.85, Est GFR (MDRD) Af Amer 137, Est GFR (MDRD) Non-Af 113, BUN/Creatinine Ratio 25.3 H, Glucose 142 H, Calcium 9.2 03/28/20 06:26: Hemoglobin A1c 6.1 H 03/28/20 06:36: POC Glucose 138 H 03/28/20 10:07: POC Glucose 234 H Current Medications Albuterol Sulfate (Ventolin Aerosols) 2.5 mg INHALATION Q4H PRN PRN Reason: SOB &/OR WHEEZING Amlodipine Besylate (Norvasc) 10 mg PO DAILY [facility] Last Admin: 03/28/20 10:04 Dose: Not Given Documented by: Aspirin (Ecotrin) 162 mg PO DAILYCM [facility] Last Admin: 03/28/20 06:59 Dose: Not Given Documented by: Baclofen (Lioresal) 30 mg PO TIDCM [facility] Last Admin: 03/28/20 07:00 Dose: Not Given Documented by: Celecoxib (Celebrex) 200 mg PO DAILY [facility] Last Admin: 03/28/20 10:04 Dose: Not Given Documented by: Cholecalciferol (Vitamin D (25mcg)) 5,000 unit PO DAILY [facility] Last Admin: 03/28/20 10:04 Dose: Not Given Documented by: Cyanocobalamin (Vitamin B12) 1,000 mcg IM Q30D [facility] Docusate Sodium (Colace) 100 mg PO BID [facility] Last Admin: 03/28/20 08:04 Dose: Not Given Documented by: Famotidine (Pepcid) 20 mg PO DAILY [facility] Last Admin: 03/28/20 08:08 Dose: 20 mg Documented by: Furosemide (Lasix) 20 mg PO BID PRN PRN Reason: water retention Gabapentin (Neurontin) 900 mg PO TID [facility] Last Admin: 03/28/20 08:08 Dose: 900 mg Documented by: Sodium Chloride () 250 mls @ 15 mls/hr IV .[id number] PRN PRN Reason: Saline Flush Sodium Chloride () 250 mls @ 15 mls/hr IV .[id number] PRN PRN Reason: Additional IVPB Infusion Lactated Ringer's () 1,000 mls @ 60 mls/hr IV .[id number] [facility] Last Infusion: 03/28/20 06:41 Dose: 0 mls/hr Documented by: Vancomycin IV Pharmacy to Dose (1 ea/ Sodium Chloride) 500 mls @ 250 mls/hr IV PRN PRN; Protocol PRN Reason: Rx to Dose Vancomycin HCl 1,250 mg/ (Sodium Chloride) 275 mls @ 167 mls/hr IV Q12H [facility] Last Infusion: 03/28/20 08:30 Dose: Infused Documented by: Insulin Glargine (Lantus ([facility])) 20 units SC DAILY [facility] Last Admin: 03/27/20 09:27 Dose: 20 u Documented by: Insulin Human Lispro (Humalog Kwikpen ([facility])) 0 unit SC ACHS [facility]; Protocol Last Admin: 03/28/20 10:17 Dose: Not Given Documented by: Lisinopril (Zestril) 5 mg PO DAILY [facility] Last Admin: 03/28/20 08:08 Dose: 5 mg Documented by: Loratadine (Claritin) 10 mg PO DAILY [facility] Last Admin: 03/28/20 08:08 Dose: 10 mg Documented by: Magnesium Oxide (Mag-Ox 400) 400 mg PO DAILY [facility] Last Admin: 03/28/20 10:04 Dose: Not Given Documented by: Metoprolol Tartrate (Lopressor (Beta Carter)) 12.5 mg PO BID [facility] Last Admin: 03/28/20 08:09 Dose: 12.5 mg Documented by: Nortriptyline HCl (Pamelor) 50 mg PO QHS [facility] Last Admin: 03/27/20 21:13 Dose: 50 mg Documented by: Ondansetron HCl (Zofran) 4 mg IV Q6H PRN PRN PRN Reason: NAUSEA Oxycodone HCl (Oxyir) 5 mg PO Q4H PRN PRN PRN Reason: Pain Score 6-10/10 Promethazine HCl (Phenergan Tablet) 25 mg PO Q4H PRN PRN PRN Reason: NAUSEA/VOMITING Simvastatin (Zocor) 10 mg PO QHS [facility] Last Admin: 03/27/20 21:14 Dose: 10 mg Documented by: Sodium Chloride () 10 - 40 ml IV UD PRN PRN Reason: SALINE FLUSH STROKE Vital Signs/Narrative: Vital Signs Temp Pulse Resp BP Pulse Ox 03/28/20 10:02 36.7 C 65 12 131/78 H 99 03/28/20 08:09 72 03/28/20 07:54 36.4 C L 72 16 144/84 H 96 Medical Necessity - Tobacco Use Smoking Status: Never smoker Assessment/Plan All Active Problems (Last Reviewed 03/27/20 @ 15:[address] Pascual Fleming, DO) Finger osteomyelitis, right (Acute) Cellulitis of finger, right (Acute) Ulcer of left foot with fat layer exposed (Acute) Finger infection (Acute) Non-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ulcer of other part of right foot with fat layer exposed (Resolved) Type 2 diabetes mellitus with foot ulcer (Acute) Type 2 diabetes mellitus with other specified complication (Acute) Diabetic ulcer of left foot with muscle involvement without evidence of necrosis (Resolved) Non-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ulcer of other part of right foot with fat layer exposed (Resolved) Colonization status (Resolved) Segmental and somatic dysfunction of lumbar region (Acute) Segmental and somatic dysfunction of thoracic region (Acute) Segmental and somatic dysfunction of cervical region (Acute) Acute congestive heart failure (Acute) Segmental and somatic dysfunction of pelvic region (Acute) Dyspnea on exertion (Acute) Nonhealing nonsurgical wound with fat layer exposed (Acute) Non-healing surgical wound (Acute) Acute left-sided weakness (Resolved) Cellulitis lft foot failed outpatient tx (Resolved) Diabetic foot ulcer associated with type 2 diabetes mellitus (Resolved) Left sided numbness (Resolved) Muscle wasting disorder (Resolved) 1. right 3rd finger infection and osteomyelitis * initiated by frostbite and Raynaud's * poor healing * has had several rounds of antibiotics without improvement * +staph * on Vanc * debridement today * Discussed with patient that he would have surgery today but this is also be done in conjunction with IV antibiotics as oral antibiotics have been insufficient for him in particular and the fact that he does have osteomyelitis based on the CAT scan. We did dissipate the patient requiring several weeks of IV antibiotics. 2. DM2 * fair control at this time * SSI * continue glargine * A1c 6.5 on 03/13 3. Raynaud's phenomenon * continue amlodipine * complicates recovery * discussed with patient at length. He said that he had been on amlodipine and nifedipine in the past and was taken off nifedipine due to swelling. He said that caused him to have the frostbite that led to his current issues. I told him, given the information he provided me, that it seemed appropriate to take him off nifedipine since he was already on amlodipine and that the risk of the combination of 2 dihydropyridine CCBs outweighed the benefits (hypotension, swelling) 4. Chronic conditions: CAD, HTN, PAD, CVA. Stable. continue home medications 5. VTE prophylaxis: SCDs 6. Medication error: patient today received his gabapentin at 0808 rather than 1400. His dose before was 0630. Will hold afternoon dose (which would have been held because of his surgery) and monitor. 7. Diarrhea: chronic. likely 2/2 abx. Check C. diff. Add loperamide if C diff negative. 35 minutes of which greater than 50% of time was counseling the patient about his infection and osteomyelitis and treatment. Inpatient E&M: [id number] [facility] L3
[2020-03-28] MEDS: Lactated Ringers 1,000 ML 60 ML IV ×2 (11:23→17:48)
[2020-03-28 11:50] LABS: Bedside Glucose 171 mg/dL (70-110)
--- NOTE | 2020-03-28 14:37 | PCM.OPRPT ---
Report of Operation Date of Procedure: 03/28/20 Pre-Operative Diagnosis: 1. Nonhealing infected diabetic ulcer dorsum right long finger at DIP joint with cellulitis. 2. Diabetes mellitus. 3. History of recent frostbite. 4. Raynaud's disease. 5. Peripheral vascular disease. 6. Smoker. 7. Osteomyelitis. Post-Operative Diagnosis: 1. Nonhealing infected diabetic abscess ulcer dorsum right long finger at DIP joint with cellulitis. 2. Diabetes mellitus. 3. History of recent frostbite. 4. Raynaud's disease. 5. Peripheral vascular disease. 6. Smoker. 7. Osteomyelitis. Surgery/Procedure Performed:: Surgical preparation dorsal aspect right long finger at DIP joint with incision and drainage and excisional debridement nonhealing infected diabetic abscess ulcer and partial ostectomy proximal distal phalanx and distal middle phalanx for osteomyelitis. Description of Surgical Findings:: 59-year-old man with a history of diabetes has a nonhealing ulcer dorsum right long finger at DIP joint. He sustained frostbite back on October 03, 2019 involving his left long finger, right index finger, right long finger, and right ring finger. He was seen at [facility]. After careful observation to look for areas of demarcation, all the fingers survived with the exception of some skin necrosis on the right long finger. Wound care has been with Silver dressing changes. He had wound culture in December which showed Staphylococcus aureus and he was treated with Doxycycline. He had a repeat culture in February which showed Staphylococcus aureus and he was treated with Levaquin as it was resistant to Tetracycline. 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 I discussed with him at the [facility]ound Center that his right long finger is at increased risk for infection because of exposure to chemicals which may lead to an eventual amputation. He was at the Wound Center for treatment of a foot ulcer and it was noted his right long finger showed increased redness and swelling and tenderness. He went to the ED for evaluation. He has failed outpatient treatment and admission was required for IV antibiotics and possible operative intervention. The ulcer has extended to the underlying bone. There is concern about osteomyelitis. He was started on IV Vancomycin. Patient is right hand dominant. Patient was informed of the risks and complications of the procedure including alternatives to surgery. These were discussed with the patient personally. Patient voices understanding and wishes to proceed. Some of the risks and complications that were discussed included but were not inclusive of failure to diagnose including symptom relief, pain, infection, numbness, stiffness, loss of digit, RSD (CRPS), need for further surgery, contracture, and wound healing problems. Encouraged patient to stop smoking as it may have deleterious effects on wound healing. Size of wound dorsal aspect right long finger at DIP joint - 2 x 1 x 0.7 cm Total tourniquet time - 14 minutes. DIP joint was severely eroded. Articular surfaces were destroyed. Multiple loose pieces of bone involved with infection including insertion of FDP tendon. The extensor tendon insertion into the distal phalanx was not there due to severe erosion of the DIP joint and severity of the infection. deputy probation officer: None Type of Anesthesia:: Local MAC - xylocaine with epinephrine digital metacarpal block and IV sedation. Specimen's removed: 1. Nonhealing infected diabetic abscess ulcer dorsum right long finger at DIP joint soft tissue to Pathology and Microbiology. 2. Nonhealing infected diabetic abscess ulcer dorsum right long finger at DIP joint bone (distal middle phalanx and proximal distal phalanx) to Pathology and Microbiology. Drains: None. Estimated Blood Loss (mL): 2 ml. Description of Procedure: Patient was taken to OR in supine position and was given IV sedation. The right hand was prepped and draped in the usual fashion. SCD's were placed for DVT prophylaxis. Perioperative antibiotics were given intravenously. The right long finger was infiltrated with xylocaine and epinephrine with a digital metacarpal block. After waiting 5 minutes for the anesthetic to take effect, I placed a digital tourniquet on the base of the right long finger. Under loupe magnification, I proceeded with incision of the nonhealing infected diabetic ulcer dorsal aspect right long finger at the DIP joint. Copious amounts of pus was seen that extended down to the bone. Some fat necrosis was present and some nonviable skin was present that was excised and debrided. When I got down to the bone, the DIP joint was severely eroded. The articular surfaces were destroyed. Multiple loose pieces of bone involved with infection including insertion of FDP tendon were seen and excised using rongeurs. The extensor tendon insertion into the distal phalanx was not there due to severe erosion of the DIP joint and severity of the infection. A rasp was used to smooth out the bony edges. I excised the distal portion of the middle phalanx and the proximal portion of the distal phalanx. Half the soft tissue and half the bone was sent to Pathology for analysis to rule out carcinoma and to evaluate for osteomyelitis. Half the soft tissue and half the bone was sent to Microbiology for culture. A positive culture will necessitate antibiotic therapy. I anticipate superintendent [employer] IV antibiotic therapy through a PICC line. The size of the wound after incision and drainage and excisional debridement was 2 x 1.5 x 0.7 cm. The tourniquet was released after 14 minutes. Hemostasis was obtained with electrocautery and gauze compression. I dressed the wound with 2x2 gauze with Betadine followed by dry 2x2 gauze and 2 inch Rizwan wrap. Patient tolerated the procedure well and was sent to PACU in satisfactory condition. Patient will be sent upstairs for continued postop care. Will apply Silver dressing change tomorrow. Will also place a PICC line. With the severity of the infection, he will need an eventual amputation. I didn't do the amputation today because the finger was quite swollen and the surrounding skin was red. It would have necessitated a much more proximal amputation. By waiting until the infection has been treated and the skin has a chance to soften with decreased swelling and the inflammation has a chance to subside, the amputation will be more distal. After discharge from the hospital, will followup at the Wound Center. Grafts/Implants Used: None. - Complications None. - Admit VTE Documentation VTE Present on Admission: No VTE Mechan Device Prophylaxis: SCD's VTE Pharm Prophylaxis ordered?: No Surgery Charges CPT - 12885 ICD-10 - L98.492, L02.511, L03.011, E11.9, M86.9, I73.9, I73.00, Z91.89, F17.200 [id number] M86.9, L02.511, L98.492, L03.011, E11.9, I73.9, I73.00, Z91.89, F17.200 [id number] M86.9, L02.511, L98.492, L03.011, E11.9, I73.9, I73.00, Z91.89, F17.200
[2020-03-28 17:31] LABS: Bedside Glucose 135 mg/dL (70-110)
[2020-03-28] MEDS: Juven (unflavored) Packet 1 PACKET PO (17:40)
[2020-03-28] MEDS: Baclofen 10 MG Tablet 30 MG PO (18:39)
[2020-03-28] MEDS: Nortriptyline 25 MG Capsule 50 MG PO (21:08)
[2020-03-28] MEDS: Simvastatin 20 MG Tablet 10 MG PO (21:10)
[2020-03-28] MEDS: Insulin Lispro 100 UNIT/ML INSULN.PEN SC (21:10)
[2020-03-28 21:31] LABS: Bedside Glucose 206 mg/dL (70-110)
[2020-03-28] MEDS: oxyCODONE 5 MG Tablet PO (23:06)
[2020-03-29 03:08] VITALS: BP 120/76; PULSE 70; RESP 16; TEMP 36.4; O2SAT 95
[2020-03-29] MEDS: oxyCODONE 5 MG Tablet PO ×3 (03:11→15:18)
[2020-03-29] MEDS: MELATONIN 3 MG TABLET PO (03:11)
[2020-03-29] MEDS: Gabapentin 300 MG Capsule 900 MG PO ×3 (06:05→21:44)
[2020-03-29 06:39] LABS: Hematocrit 41.2 % (40-54); Hemoglobin 12.8 g/dL (13.0-16.5); Mean Corp Hgb Conc 31.1 g/dL (32-36); Mean Corpuscular Hgb 32.1 pg (27.0-32.0); Mean Corpuscular Volume 103.3 fL (80-94); Mean Platelet Vol. 9.9 fl (6.2-12.0); Platelet Count 234 K/mm3 (150-450); RBC Distribution Width CV 13.8 % (11.6-14.6); RBC Distribution Width SD 51.8 fl (35.1-43.9); Red Blood Count 3.99 M/mm3 (4.6-6.2); White Blood Count 5.8 K/mm3 (4.4-11.0)
[2020-03-29 06:55] LABS: Bedside Glucose 125 mg/dL (70-110)
[2020-03-29 07:04] LABS: Anion Gap 5 (5-15); BUN 15 mg/dL (7-18); BUN/Creat Ratio 18.8 RATIO (10-20); Chloride 103 mmol/L (98-107); EST Glomerular Filtration Rate 106 mL/min (>60); Est Glom Filt Rate - Afr Amer 128 mL/min (>60); Estimated Creatinine Clearance 103.92 ml/min; Glucose 127 mg/dL (74-106); Potassium 4.5 mmol/L (3.5-5.1); Sodium Level 141 mmol/L (136-145)
[2020-03-29] MEDS: Aspirin E.C. 81 MG Tablet 162 MG PO (07:37)
[2020-03-29] MEDS: Baclofen 10 MG Tablet 30 MG PO ×3 (07:38→17:06)
[2020-03-29] MEDS: Juven (unflavored) Packet 1 PACKET PO ×2 (07:38→17:06)
--- NOTE | 2020-03-29 08:05 | NURSING ---
stopped iv at 08- vanco running and didn't complete - d/t iv was starting to hurt- removed and unable to chart that vanco was uncompleted- will inform pharmacy
[2020-03-29] MEDS: Magnesium Oxide 400 MG Tablet PO (09:37)
[2020-03-29] MEDS: Lisinopril 5 MG Tablet PO (09:38)
[2020-03-29] MEDS: Loratadine 10 MG Tablet PO (09:38)
[2020-03-29] MEDS: amLODIPine 10 MG Tablet PO (09:38)
[2020-03-29 09:39] VITALS: BP 120/76; PULSE 76
[2020-03-29] MEDS: Metoprolol Tartrate 25 MG Tablet 12.5 MG PO ×2 (09:39→21:44)
[2020-03-29] MEDS: Celecoxib 200 MG Capsule PO (09:43)
[2020-03-29] MEDS: Famotidine 20 MG Tablet PO (09:45)
[2020-03-29 09:55] VITALS: BP 120/67; PULSE 76; RESP 16; TEMP 36.7; O2SAT 96
--- NOTE | 2020-03-29 10:45 | PN_ITS ---
Patient Problems: Active and Suspected Problems (Last Reviewed 03/27/20 @ 15:[address] Pascual Fleming, DO) Finger infection (Acute) Subjective: Had pain in his right hand. Pain in right 3rd finger. Vitals/I&O's: Vital Signs Temp Pulse Resp BP Pulse Ox 36.7 C 76 16 120/67 96 03/29/20 09:55 03/29/20 09:55 03/29/20 09:55 03/29/20 09:55 03/29/20 09:55 Oxygen Delivery Method Room Air Weight: 97.522 kg Body Mass Index (BMI) 30.7 Finger Stick Blood Glucose 107 Intake and Output for Last 24 Hours 03/27/20 03/28/20 03/29/20 23:59 23:59 23:59 Intake Total 2030 / 2470 2403 / 2943 1416 / 1416 Output Total 1300 / 1300 Balance 730 / 1170 2403 / 2943 1416 / 1416 General: Alert, No apparent distress HEENT: Atraumatic, Normocephalic Oral: Moist Mucosa, No Gingival or Mucosal Lesions/ Ulcerations Neck: No Nodes, Trachea Midline Lungs: Clear to auscultation, Normal air movement, No rhonchi, No wheeze, No rales Cardiovascular: Regular rate, Regular Rhythm, Normal S1, Normal S2, No murmurs Abdomen: Bowel Sounds Present, Soft, Non Tender, Non-Distended, No Hepato- splenomegaly Extremities: No edema, No Calf Tenderness, - - contractures of digits. right 3rd finger bandaged Musculoskeletal: No Tenderness to Palpation of Joints or Extremities, No Muscle Wasting Neurological: Cranial nerves II-XII grossly intact, Deep Tendon Reflexes 2+/4 and Symmetrical Psych/Mental Status: Normal Affect, Appropriate Microbiology Past 72 Hours 03/28/20 Unknown Tissue - Finger Wound Culture - Preliminary Staphylococcus aureus 03/28/20 Unknown Tissue - Finger Wound Culture - Preliminary Staphylococcus species Laboratory Results 03/28/20 11:34: POC Glucose 171 H 03/28/20 15:52: POC Glucose 135 H 03/28/20 21:06: POC Glucose 206 H 03/29/20 06:05: WBC 5.8, RBC 3.99 L, Hgb 12.8 L, Hct 41.2, MCV 103.3 H, MCH 32.1 H, MCHC 31.1 L, RDW Std Deviation 51.8 H, RDW Coeff of Mayi 13.8, Plt Count 234, MPV 9.9 03/29/20 06:05: Sodium 141, Potassium 4.5, Chloride 103, Carbon Dioxide 33.0 H, Anion Gap 5, BUN 15, Creatinine 0.80, Estim Creat Clear Calc 103.92, Est GFR (MDRD) Af Amer 128, Est GFR (MDRD) Non-Af 106, BUN/Creatinine Ratio 18.8, Glucose 127 H, Calcium 9.0 03/29/20 06:46: POC Glucose 125 H Current Medications Albuterol Sulfate (Ventolin Aerosols) 2.5 mg INHALATION Q4H PRN PRN Reason: SOB &/OR WHEEZING Amlodipine Besylate (Norvasc) 10 mg PO DAILY [facility] Last Admin: 03/29/20 09:38 Dose: 10 mg Documented by: Aspirin (Ecotrin) 162 mg PO DAILYCM [facility] Last Admin: 03/29/20 07:37 Dose: 162 mg Documented by: Baclofen (Lioresal) 30 mg PO TIDCM [facility] Last Admin: 03/29/20 07:38 Dose: 30 mg Documented by: Celecoxib (Celebrex) 200 mg PO DAILY [facility] Last Admin: 03/29/20 09:43 Dose: 200 mg Documented by: Cholecalciferol (Vitamin D (25mcg)) 5,000 unit PO DAILY [facility] Last Admin: 03/29/20 09:38 Dose: 5,000 unit Documented by: Cyanocobalamin (Vitamin B12) 1,000 mcg IM Q30D [facility] Docusate Sodium (Colace) 100 mg PO BID [facility] Last Admin: 03/29/20 09:50 Dose: Not Given Documented by: Famotidine (Pepcid) 20 mg PO DAILY [facility] Last Admin: 03/29/20 09:45 Dose: 20 mg Documented by: Furosemide (Lasix) 20 mg PO BID PRN PRN Reason: water retention Gabapentin (Neurontin) 900 mg PO TID [facility] Last Admin: 03/29/20 06:05 Dose: 900 mg Documented by: Sodium Chloride () 250 mls @ 15 mls/hr IV .[id number] PRN PRN Reason: Saline Flush Sodium Chloride () 250 mls @ 15 mls/hr IV .[id number] PRN PRN Reason: Additional IVPB Infusion Lactated Ringer's () 1,000 mls @ 60 mls/hr IV .[id number] [facility] Last Infusion: 03/29/20 06:44 Dose: 0 mls/hr Documented by: Vancomycin IV Pharmacy to Dose (1 ea/ Sodium Chloride) 500 mls @ 250 mls/hr IV PRN PRN; Protocol PRN Reason: Rx to Dose Vancomycin HCl 1,250 mg/ (Sodium Chloride) 275 mls @ 167 mls/hr IV Q12H [facility] Last Admin: 03/29/20 06:43 Dose: 167 mls/hr Documented by: Insulin Glargine (Lantus ([facility])) 20 units SC DAILY [facility] Last Admin: 03/29/20 09:47 Dose: 20 u Documented by: Insulin Human Lispro (Humalog Kwikpen ([facility])) 0 unit SC ACHS [facility]; Protocol Last Admin: 03/29/20 06:46 Dose: Not Given Documented by: Lisinopril (Zestril) 5 mg PO DAILY [facility] Last Admin: 03/29/20 09:38 Dose: 5 mg Documented by: Loratadine (Claritin) 10 mg PO DAILY [facility] Last Admin: 03/29/20 09:38 Dose: 10 mg Documented by: Magnesium Oxide (Mag-Ox 400) 400 mg PO DAILY [facility] Last Admin: 03/29/20 09:37 Dose: 400 mg Documented by: Melatonin (Melatonin) 3 mg PO QHS PRN PRN Reason: INSOMNIA Last Admin: 03/29/20 03:11 Dose: 3 mg Documented by: Metoprolol Tartrate (Lopressor (Beta Carter)) 12.5 mg PO BID [facility] Last Admin: 03/29/20 09:39 Dose: 12.5 mg Documented by: Nortriptyline HCl (Pamelor) 50 mg PO QHS [facility] Last Admin: 03/28/20 21:08 Dose: 50 mg Documented by: Ondansetron HCl (Zofran) 4 mg IV Q6H PRN PRN PRN Reason: NAUSEA Oxycodone HCl (Oxyir) 5 mg PO Q4H PRN PRN PRN Reason: Pain Score 6-10/10 Last Admin: 03/29/20 07:36 Dose: 5 mg Documented by: Promethazine HCl (Phenergan Tablet) 25 mg PO Q4H PRN PRN PRN Reason: NAUSEA/VOMITING Simvastatin (Zocor) 10 mg PO QHS [facility] Last Admin: 03/28/20 21:10 Dose: 10 mg Documented by: Sodium Chloride () 10 - 40 ml IV UD PRN PRN Reason: SALINE FLUSH STROKE Vital Signs/Narrative: Vital Signs Temp Pulse Resp BP Pulse Ox 03/29/20 09:55 36.7 C 76 16 120/67 96 03/29/20 09:39 76 120/76 Medical Necessity - Tobacco Use Smoking Status: Never smoker Assessment/Plan All Active Problems (Last Reviewed 03/27/20 @ 15:[address] Pascual Fleming, DO) Finger osteomyelitis, right (Acute) Cellulitis of finger, right (Acute) Ulcer of left foot with fat layer exposed (Acute) Finger infection (Acute) Non-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ulcer of other part of right foot with fat layer exposed (Resolved) Type 2 diabetes mellitus with foot ulcer (Acute) Type 2 diabetes mellitus with other specified complication (Acute) Diabetic ulcer of left foot with muscle involvement without evidence of necrosis (Resolved) Non-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ulcer of other part of right foot with fat layer exposed (Resolved) Colonization status (Resolved) Segmental and somatic dysfunction of lumbar region (Acute) Segmental and somatic dysfunction of thoracic region (Acute) Segmental and somatic dysfunction of cervical region (Acute) Acute congestive heart failure (Acute) Segmental and somatic dysfunction of pelvic region (Acute) Dyspnea on exertion (Acute) Nonhealing nonsurgical wound with fat layer exposed (Acute) Non-healing surgical wound (Acute) Acute left-sided weakness (Resolved) Cellulitis lft foot failed outpatient tx (Resolved) Diabetic foot ulcer associated with type 2 diabetes mellitus (Resolved) Left sided numbness (Resolved) Muscle wasting disorder (Resolved) 1. right 3rd finger infection and osteomyelitis * initiated by frostbite and Raynaud's * poor healing * has had several rounds of antibiotics without improvement * +MSSA on culture from 03/26. Staph on surgical cultures from 03/28. Consider deescalation to cefazolin/nafcillin if MSSA seen on cultures from 03/28 * on Vanc * debridement today * 03/28: underwent I+D of dorsal right 3rd finger. DIP joint was severely eroded. Articular surfaces were destroyed. Multiple loose pieces of bone involved with infection including insertion of FDP tendon. The extensor tendon insertion into the distal phalanx was not there due to severe erosion of the DIP joint and severity of the infection. * Continue IV abx. Anticipate treat for 4-6 weeks. 2. DM2 * fair control at this time * SSI * continue glargine * A1c 6.5 on 03/13 3. Raynaud's phenomenon * continue amlodipine * complicates recovery * 03/28: discussed with patient at length. He said that he had been on amlodipine and nifedipine in the past and was taken off nifedipine due to swelling. He said that caused him to have the frostbite that led to his current issues. I told him, given the information he provided me, that it seemed appropriate to take him off nifedipine since he was already on amlodipine and that the risk of the combination of 2 dihydropyridine CCBs outweighed the benefits (hypotension, swelling) 4. Chronic conditions: CAD, HTN, PAD, CVA. Stable. continue home medications 5. VTE prophylaxis: SCDs 6. Medication error: * 03/28 received his gabapentin at 0808 rather than 1400. His dose before was 0630. Will hold afternoon dose (which would have been held because of his surgery) and monitor. No sequela. 7. Diarrhea: chronic. likely 2/2 abx. Check C. diff. Add loperamide if C diff negative. 35 minutes of which greater than 50% of time was counseling the patient about his infection and osteomyelitis and treatment. Inpatient E&M: [id number] [facility] L3
[2020-03-29] MEDS: Insulin Lispro 100 UNIT/ML INSULN.PEN SC ×3 (11:31→21:54)
[2020-03-29 11:50] LABS: Bedside Glucose 223 mg/dL (70-110)
[2020-03-29 13:32] VITALS: BP 139/79; PULSE 73; RESP 16; TEMP 36.7; O2SAT 98
--- NOTE | 2020-03-29 18:21 | PCM.PN.SRG ---
Subjective: Postop #1 Some pain with the Silver dressing change. - Physical Exam Vitals/I&O's: Vital Signs Temp Pulse Resp BP Pulse Ox 98.1 F 73 16 139/79 H 98 03/29/20 13:32 03/29/20 13:32 03/29/20 13:32 03/29/20 13:32 03/29/20 13:32 Oxygen Delivery Method Room Air Weight: 214 lb 15.987 oz Body Mass Index (BMI) 30.7 Finger Stick Blood Glucose 107 Intake and Output for Last 24 Hours 03/27/20 03/28/20 03/29/20 23:59 23:59 23:59 Intake Total 2030 / 2470 2403 / 2943 2491 / 2491 Output Total 1300 / 1300 600 / 600 Balance 730 / 1170 2403 / 2943 1891 / 1891 General: Alert, Oriented x3 HEENT: PERRLA, EOMI Oral: Moist Mucosa Neck: Supple Abdomen: Soft, Non-Distended Skin: Ulcer/ Wound - right long finger wound clean. Good bleeding seen. No evidence of residual infection. Redness is a little better. Swelling slowly resolving. Redressed wound the Aquacel Silver. Neurological: Cranial nerves II-XII grossly intact Psych/Mental Status: Normal Affect, Appropriate Microbiology Past 72 Hours 03/28/20 Unknown Tissue - Finger Gram Stain - Final 03/28/20 Unknown Tissue - Finger Wound Culture - Preliminary Staphylococcus aureus 03/28/20 Unknown Tissue - Finger Gram Stain - Final 03/28/20 Unknown Tissue - Finger Wound Culture - Preliminary Staphylococcus species Pathology - pending. Laboratory Results 03/28/20 21:06: POC Glucose 206 H 03/29/20 06:05: WBC 5.8, RBC 3.99 L, Hgb 12.8 L, Hct 41.2, MCV 103.3 H, MCH 32.1 H, MCHC 31.1 L, RDW Std Deviation 51.8 H, RDW Coeff of Mayi 13.8, Plt Count 234, MPV 9.9 03/29/20 06:05: Sodium 141, Potassium 4.5, Chloride 103, Carbon Dioxide 33.0 H, Anion Gap 5, BUN 15, Creatinine 0.80, Estim Creat Clear Calc 103.92, Est GFR (MDRD) Af Amer 128, Est GFR (MDRD) Non-Af 106, BUN/Creatinine Ratio 18.8, Glucose 127 H, Calcium 9.0 03/29/20 06:46: POC Glucose 125 H 03/29/20 11:28: POC Glucose 223 H Current Medications Albuterol Sulfate (Ventolin Aerosols) 2.5 mg INHALATION Q4H PRN PRN Reason: SOB &/OR WHEEZING Amlodipine Besylate (Norvasc) 10 mg PO DAILY [facility] Last Admin: 03/29/20 09:38 Dose: 10 mg Documented by: Aspirin (Ecotrin) 162 mg PO DAILYCM [facility] Last Admin: 03/29/20 07:37 Dose: 162 mg Documented by: Baclofen (Lioresal) 30 mg PO TIDCM [facility] Last Admin: 03/29/20 17:06 Dose: 30 mg Documented by: Celecoxib (Celebrex) 200 mg PO DAILY [facility] Last Admin: 03/29/20 09:43 Dose: 200 mg Documented by: Cholecalciferol (Vitamin D (25mcg)) 5,000 unit PO DAILY [facility] Last Admin: 03/29/20 09:38 Dose: 5,000 unit Documented by: Cyanocobalamin (Vitamin B12) 1,000 mcg IM Q30D [facility] Docusate Sodium (Colace) 100 mg PO BID [facility] Last Admin: 03/29/20 09:50 Dose: Not Given Documented by: Famotidine (Pepcid) 20 mg PO DAILY [facility] Last Admin: 03/29/20 09:45 Dose: 20 mg Documented by: Furosemide (Lasix) 20 mg PO BID PRN PRN Reason: water retention Gabapentin (Neurontin) 900 mg PO TID [facility] Last Admin: 03/29/20 13:31 Dose: 900 mg Documented by: Sodium Chloride () 250 mls @ 15 mls/hr IV .[id number] PRN PRN Reason: Saline Flush Sodium Chloride () 250 mls @ 15 mls/hr IV .[id number] PRN PRN Reason: Additional IVPB Infusion Lactated Ringer's () 1,000 mls @ 60 mls/hr IV .[id number] [facility] Last Infusion: 03/29/20 06:44 Dose: 0 mls/hr Documented by: Vancomycin IV Pharmacy to Dose (1 ea/ Sodium Chloride) 500 mls @ 250 mls/hr IV PRN PRN; Protocol PRN Reason: Rx to Dose Vancomycin HCl 1,250 mg/ (Sodium Chloride) 275 mls @ 167 mls/hr IV Q12H [facility] Last Infusion: 03/29/20 08:30 Dose: Infused Documented by: Insulin Glargine (Lantus (Bk)) 20 units SC DAILY [facility] Last Admin: 03/29/20 09:47 Dose: 20 u Documented by: Insulin Human Lispro (Humalog Kwikpen ([facility])) 0 unit SC [facility]; Protocol Last Admin: 03/29/20 17:07 Dose: 2 u Documented by: Lisinopril (Zestril) 5 mg PO DAILY [facility] Last Admin: 03/29/20 09:38 Dose: 5 mg Documented by: Loratadine (Claritin) 10 mg PO DAILY [facility] Last Admin: 03/29/20 09:38 Dose: 10 mg Documented by: Magnesium Oxide (Mag-Ox 400) 400 mg PO DAILY [facility] Last Admin: 03/29/20 09:37 Dose: 400 mg Documented by: Melatonin (Melatonin) 3 mg PO QHS PRN PRN Reason: INSOMNIA Last Admin: 03/29/20 03:11 Dose: 3 mg Documented by: Metoprolol Tartrate (Lopressor (Beta Carter)) 12.5 mg PO BID [facility] Last Admin: 03/29/20 09:39 Dose: 12.5 mg Documented by: Nortriptyline HCl (Pamelor) 50 mg PO QHS [facility] Last Admin: 03/28/20 21:08 Dose: 50 mg Documented by: Ondansetron HCl (Zofran) 4 mg IV Q6H PRN PRN PRN Reason: NAUSEA Oxycodone HCl (Oxyir) 5 mg PO Q4H PRN PRN PRN Reason: Pain Score 6-10/10 Last Admin: 03/29/20 15:18 Dose: 5 mg Documented by: Promethazine HCl (Phenergan Tablet) 25 mg PO Q4H PRN PRN PRN Reason: NAUSEA/VOMITING Simvastatin (Zocor) 10 mg PO QHS [facility] Last Admin: 03/28/20 21:10 Dose: 10 mg Documented by: Sodium Chloride () 10 - 40 ml IV UD PRN PRN Reason: SALINE FLUSH Medical Necessity - Tobacco Use Smoking Status: Never smoker Assessment/Plan All Active Problems (Last Reviewed 03/27/20 @ 15:[address] Pascual Fleming, DO) Abscess of right middle finger (Acute) Finger osteomyelitis, right (Acute) Cellulitis of finger, right (Acute) Ulcer of left foot with fat layer exposed (Acute) Non-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ulcer of other part of right foot with fat layer exposed (Resolved) Type 2 diabetes mellitus with foot ulcer (Acute) Type 2 diabetes mellitus with other specified complication (Acute) Diabetic ulcer of left foot with muscle involvement without evidence of necrosis (Resolved) Non-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ulcer of other part of right foot with fat layer exposed (Resolved) Colonization status (Resolved) Segmental and somatic dysfunction of lumbar region (Acute) Segmental and somatic dysfunction of thoracic region (Acute) Segmental and somatic dysfunction of cervical region (Acute) Acute congestive heart failure (Acute) Segmental and somatic dysfunction of pelvic region (Acute) Dyspnea on exertion (Acute) Nonhealing nonsurgical wound with fat layer exposed (Acute) Non-healing surgical wound (Acute) Acute left-sided weakness (Resolved) Cellulitis lft foot failed outpatient tx (Resolved) Diabetic foot ulcer associated with type 2 diabetes mellitus (Resolved) Left sided numbness (Resolved) Muscle wasting disorder (Resolved) 1. Nonhealing infected diabetic ulcer dorsum right long finger at DIP joint with cellulitis. 2. Diabetes mellitus. 3. History of recent frostbite. 4. Raynaud's disease. 5. Peripheral vascular disease. 6. Smoker. 7. Osteomyelitis. Wound is stable. Good bleeding seen. Tip is viable. Redressed with Aquacel Silver. Redness little better. Swelling slowly resolving. Continue IV Vancomycin. If no MRSA seen on culture can change to a cephalosporin. At discharge, Ceftriaxone is once per day. With the severity of the bony destruction seen at surgery, will order a PICC line. Will need IV antibiotics at discharge. His HgbA1c from 03/13/20 was 6.5. Anticipate increased metabolic demands from the infection. Prealbumin was 18.8. Encourage nutritional supplementation [facility]. If healing is delayed, he would need operative debridement with skin flap or skin graft reconstruction. With his history of Raynaud's and peripheral vascular disease and smoking, he is at increased risk of developing wound healing problems that would lead to an eventual amputation. He voices understanding. Ideally want to wait until the infection is treated and the inflammation has subsided in order to do as distal of an amputation as possible (through middle phalanx). If I did the amputation now, it would be very proximal, close to the MP joint which can be problematic. Encouraged the patient to stop smoking as it may have deleterious effects on wound healing.
[2020-03-29 20:00] VITALS: BP 152/77; PULSE 79; RESP 16; TEMP 36.6; O2SAT 96
[2020-03-29] MEDS: Lactated Ringers 1,000 ML 60 ML IV (21:39)
[2020-03-29 21:44] VITALS: BP 152/77; PULSE 79
[2020-03-29] MEDS: Simvastatin 20 MG Tablet 10 MG PO (21:44)
[2020-03-29] MEDS: Nortriptyline 25 MG Capsule 50 MG PO (21:44)
[2020-03-29 22:00] LABS: Bedside Glucose 178 mg/dL (70-110)
[2020-03-30 00:11] LABS: Bedside Glucose 228 mg/dL (70-110)
[2020-03-30 03:10] VITALS: BP 112/61; PULSE 75; RESP 16; TEMP 36.6; O2SAT 95
[2020-03-30] MEDS: Gabapentin 300 MG Capsule 900 MG PO ×3 (05:16→21:01)
[2020-03-30 06:07] LABS: Hematocrit 43.7 % (40-54); Hemoglobin 13.6 g/dL (13.0-16.5); Mean Corp Hgb Conc 31.1 g/dL (32-36); Mean Corpuscular Hgb 31.9 pg (27.0-32.0); Mean Corpuscular Volume 102.3 fL (80-94); Mean Platelet Vol. 9.8 fl (6.2-12.0); Platelet Count 239 K/mm3 (150-450); RBC Distribution Width CV 13.5 % (11.6-14.6); RBC Distribution Width SD 51.2 fl (35.1-43.9); Red Blood Count 4.27 M/mm3 (4.6-6.2); White Blood Count 5.5 K/mm3 (4.4-11.0)
[2020-03-30 06:32] LABS: Anion Gap 5 (5-15); BUN 20 mg/dL (7-18); BUN/Creat Ratio 25.4 RATIO (10-20); Calcium,Total 9.5 mg/dL (8.5-10.1); Chloride 103 mmol/L (98-107); Creatinine, Serum 0.79 mg/dL (0.70-1.30); EST Glomerular Filtration Rate 107 mL/min (>60); Est Glom Filt Rate - Afr Amer 130 mL/min (>60); Estimated Creatinine Clearance 105.24 ml/min; Glucose 154 mg/dL (74-106); Potassium 4.4 mmol/L (3.5-5.1); Sodium Level 140 mmol/L (136-145)
[2020-03-30] MEDS: Insulin Lispro 100 UNIT/ML INSULN.PEN SC ×4 (06:32→21:13)
[2020-03-30 06:41] LABS: Bedside Glucose 158 mg/dL (70-110)
[2020-03-30] MEDS: Baclofen 10 MG Tablet 30 MG PO ×3 (08:44→16:59)
[2020-03-30] MEDS: Loratadine 10 MG Tablet PO (08:45)
[2020-03-30] MEDS: Magnesium Oxide 400 MG Tablet PO (08:45)
[2020-03-30] MEDS: Juven (unflavored) Packet 1 PACKET PO ×2 (08:45→16:59)
[2020-03-30] MEDS: Aspirin E.C. 81 MG Tablet 162 MG PO (08:46)
[2020-03-30 09:49] VITALS: BP 101/60; PULSE 74; RESP 18; TEMP 36.6; O2SAT 98
--- NOTE | 2020-03-30 09:50 | PCM.PN.HOSP ---
Subjective: Right hand feeling better. Concerned about showering with PICC line. Vitals/I&O's: Vital Signs Temp Pulse Resp BP Pulse Ox 36.6 C 75 16 112/61 95 03/30/20 03:10 03/30/20 03:10 03/30/20 03:10 03/30/20 03:10 03/30/20 03:10 Oxygen Delivery Method Room Air Weight: 97.522 kg Body Mass Index (BMI) 30.7 Finger Stick Blood Glucose 107 Intake and Output for Last 24 Hours 03/28/20 03/29/20 03/30/20 23:59 23:59 23:59 Intake Total 2403 / 2943 2766 / 2766 625 / 625 Output Total 600 / 600 Balance 2403 / 2943 2166 / 2166 625 / 625 General: Alert, No apparent distress HEENT: Atraumatic, Normocephalic Oral: Moist Mucosa, No Gingival or Mucosal Lesions/ Ulcerations Neck: No Nodes, Thyroid Normal Size and Texture Lungs: Clear to auscultation, Normal air movement, No rhonchi, No wheeze, No rales Cardiovascular: Regular rate, Regular Rhythm, Normal S1, Normal S2, No murmurs Abdomen: Bowel Sounds Present, Soft, Non Tender, Non-Distended Extremities: No edema, No Calf Tenderness, - - right 3rd finger bandaged--did not remove. flexion contractures of digits. Psych/Mental Status: Normal Affect, Appropriate Microbiology Past 72 Hours 03/28/20 Unknown Tissue - Finger Gram Stain - Final 03/28/20 Unknown Tissue - Finger Wound Culture - Final Staphylococcus aureus 03/28/20 Unknown Tissue - Finger Gram Stain - Final 03/28/20 Unknown Tissue - Finger Wound Culture - Final Staphylococcus aureus 03/29/20 16:23 Stool C. difficile DNA Amplification - Final Laboratory Results 03/29/20 11:28: POC Glucose 223 H 03/29/20 17:04: POC Glucose 228 H 03/29/20 21:53: POC Glucose 178 H 03/30/20 05:55: WBC 5.5, RBC 4.27 L, Hgb 13.6, Hct 43.7, MCV 102.3 H, MCH 31.9, MCHC 31.1 L, RDW Std Deviation 51.2 H, RDW Coeff of Mayi 13.5, Plt Count 239, MPV 9.8 03/30/20 05:55: Sodium 140, Potassium 4.4, Chloride 103, Carbon Dioxide 32.0, Anion Gap 5, BUN 20 H, Creatinine 0.79, Estim Creat Clear Calc 105.24, Est GFR (MDRD) Af Amer 130, Est GFR (MDRD) Non-Af 107, BUN/Creatinine Ratio 25.4 H, Glucose 154 H, Calcium 9.5 03/30/20 06:31: POC Glucose 158 H Current Medications Albuterol Sulfate (Ventolin Aerosols) 2.5 mg INHALATION Q4H PRN PRN Reason: SOB &/OR WHEEZING Amlodipine Besylate (Norvasc) 10 mg PO DAILY [facility] Last Admin: 03/29/20 09:38 Dose: 10 mg Documented by: Aspirin (Ecotrin) 162 mg PO DAILYCM [facility] Last Admin: 03/30/20 08:46 Dose: 162 mg Documented by: Baclofen (Lioresal) 30 mg PO TIDCM [facility] Last Admin: 03/30/20 08:44 Dose: 30 mg Documented by: Celecoxib (Celebrex) 200 mg PO DAILY [facility] Last Admin: 03/29/20 09:43 Dose: 200 mg Documented by: Cholecalciferol (Vitamin D (25mcg)) 5,000 unit PO DAILY [facility] Last Admin: 03/29/20 09:38 Dose: 5,000 unit Documented by: Cyanocobalamin (Vitamin B12) 1,000 mcg IM Q30D [facility] Docusate Sodium (Colace) 100 mg PO BID [facility] Last Admin: 03/29/20 21:43 Dose: Not Given Documented by: Famotidine (Pepcid) 20 mg PO DAILY [facility] Last Admin: 03/29/20 09:45 Dose: 20 mg Documented by: Furosemide (Lasix) 20 mg PO BID PRN PRN Reason: water retention Gabapentin (Neurontin) 900 mg PO TID [facility] Last Admin: 03/30/20 05:16 Dose: 900 mg Documented by: Sodium Chloride () 250 mls @ 15 mls/hr IV .[id number] PRN PRN Reason: Saline Flush Sodium Chloride () 250 mls @ 15 mls/hr IV .[id number] PRN PRN Reason: Additional IVPB Infusion Lactated Ringer's () 1,000 mls @ 60 mls/hr IV .[id number] [facility] Last Admin: 03/29/20 21:39 Dose: 60 mls/hr Documented by: Cefazolin Sodium 2 gm/ Sodium (Chloride) 110 mls @ 150 mls/hr IV Q8 [facility] Insulin Glargine (Lantus (Bkc)) 20 units SC DAILY [facility] Last Admin: 03/29/20 09:47 Dose: 20 u Documented by: Insulin Human Lispro (Humalog Kwikpen (Bkc)) 0 unit SC ACHS [facility]; Protocol Last Admin: 03/30/20 06:32 Dose: 1 u Documented by: Lisinopril (Zestril) 5 mg PO DAILY [facility] Last Admin: 03/29/20 09:38 Dose: 5 mg Documented by: Loratadine (Claritin) 10 mg PO DAILY [facility] Last Admin: 03/30/20 08:45 Dose: 10 mg Documented by: Magnesium Oxide (Mag-Ox 400) 400 mg PO DAILY [facility] Last Admin: 03/30/20 08:45 Dose: 400 mg Documented by: Melatonin (Melatonin) 3 mg PO QHS PRN PRN Reason: INSOMNIA Last Admin: 03/29/20 03:11 Dose: 3 mg Documented by: Metoprolol Tartrate (Lopressor (Beta Carter)) 12.5 mg PO BID [facility] Last Admin: 03/29/20 21:44 Dose: 12.5 mg Documented by: Nortriptyline HCl (Pamelor) 50 mg PO QHS [facility] Last Admin: 03/29/20 21:44 Dose: 50 mg Documented by: Ondansetron HCl (Zofran) 4 mg IV Q6H PRN PRN PRN Reason: NAUSEA Oxycodone HCl (Oxyir) 5 mg PO Q4H PRN PRN PRN Reason: Pain Score 6-10/10 Last Admin: 03/29/20 15:18 Dose: 5 mg Documented by: Promethazine HCl (Phenergan Tablet) 25 mg PO Q4H PRN PRN PRN Reason: NAUSEA/VOMITING Simvastatin (Zocor) 10 mg PO QHS [facility] Last Admin: 03/29/20 21:44 Dose: 10 mg Documented by: Sodium Chloride () 10 - 40 ml IV UD PRN PRN Reason: SALINE FLUSH Medical Necessity - Tobacco Use Smoking Status: Never smoker Assessment/Plan All Active Problems (Last Reviewed 03/27/20 @ 15:[address] Pascual Fleming, DO) Finger osteomyelitis, right (Acute) Cellulitis of finger, right (Acute) Ulcer of left foot with fat layer exposed (Acute) Non-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ulcer of other part of right foot with fat layer exposed (Resolved) Type 2 diabetes mellitus with foot ulcer (Acute) Type 2 diabetes mellitus with other specified complication (Acute) Diabetic ulcer of left foot with muscle involvement without evidence of necrosis (Resolved) Non-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ulcer of other part of right foot with fat layer exposed (Resolved) Colonization status (Resolved) Segmental and somatic dysfunction of lumbar region (Acute) Segmental and somatic dysfunction of thoracic region (Acute) Segmental and somatic dysfunction of cervical region (Acute) Acute congestive heart failure (Acute) Segmental and somatic dysfunction of pelvic region (Acute) Dyspnea on exertion (Acute) Nonhealing nonsurgical wound with fat layer exposed (Acute) Non-healing surgical wound (Acute) Acute left-sided weakness (Resolved) Cellulitis lft foot failed outpatient tx (Resolved) Diabetic foot ulcer associated with type 2 diabetes mellitus (Resolved) Left sided numbness (Resolved) Muscle wasting disorder (Resolved) 1. right 3rd finger infection and osteomyelitis initiated by frostbite and complicated by Raynaud's poor healing has had several rounds of antibiotics without improvement +MSSA change abx to Cefazolin 03/28: underwent I+D of dorsal right 3rd finger. DIP joint was severely eroded. Articular surfaces were destroyed. Multiple loose pieces of bone involved with infection including insertion of FDP tendon. The extensor tendon insertion into the distal phalanx was not there due to severe erosion of the DIP joint and severity of the infection. Continue IV abx. Anticipate treat for 4-6 weeks. PICC placed 03/29 2. DM2 fair control at this time SSI continue glargine A1c 6.5 on 03/13 3. Raynaud's phenomenon continue amlodipine complicates recovery 03/28: discussed with patient at length. He said that he had been on amlodipine and nifedipine in the past and was taken off nifedipine due to swelling. He said that caused him to have the frostbite that led to his current issues. I told him, given the information he provided me, that it seemed appropriate to take him off nifedipine since he was already on amlodipine and that the risk of the combination of 2 dihydropyridine CCBs outweighed the benefits (hypotension, swelling) 4. Chronic conditions: CAD, HTN, PAD, CVA. Stable. continue home medications 5. VTE prophylaxis: SCDs 6. Medication error: 03/28 received his gabapentin at 0808 rather than 1400. His dose before was 0630. Will hold afternoon dose (which would have been held because of his surgery) and monitor. No sequela. 7. Diarrhea: chronic. likely 2/2 abx. Check C. diff. Add loperamide if C diff negative. Inpatient E&M: 07625 Subs Hosp L2
[2020-03-30] MEDS: Famotidine 20 MG Tablet PO (09:52)
[2020-03-30 09:53] VITALS: BP 101/60; PULSE 74
[2020-03-30] MEDS: Celecoxib 200 MG Capsule PO (09:53)
[2020-03-30] MEDS: Metoprolol Tartrate 25 MG Tablet 12.5 MG PO ×2 (09:53→21:01)
[2020-03-30] MEDS: Lisinopril 5 MG Tablet PO (09:53)
[2020-03-30] MEDS: amLODIPine 10 MG Tablet PO (09:56)
--- NOTE | 2020-03-30 10:38 | NURSING ---
wanted Vanco level cancelled since Vancomycin d/'delfino.
[2020-03-30 11:40] LABS: Bedside Glucose 213 mg/dL (70-110)
[2020-03-30] MEDS: Loperamide 2 MG Capsule PO (12:19)
[2020-03-30] MEDS: Cefazolin 2 GM in 0.9% Normal Saline 100 ML IV ×2 (13:54→21:09)
[2020-03-30 13:58] VITALS: BP 139/71; PULSE 82; RESP 18; TEMP 36.8; O2SAT 98
[2020-03-30 16:45] LABS: Bedside Glucose 236 mg/dL (70-110)
[2020-03-30] MEDS: Lactated Ringers 1,000 ML 60 ML IV (17:55)
[2020-03-30 20:35] VITALS: BP 130/85; PULSE 92; RESP 16; TEMP 36.9; O2SAT 100
[2020-03-30] MEDS: Simvastatin 20 MG Tablet 10 MG PO (20:59)
[2020-03-30 21:01] VITALS: PULSE 90
[2020-03-30] MEDS: Nortriptyline 25 MG Capsule 50 MG PO (21:01)
[2020-03-30 21:36] LABS: Bedside Glucose 206 mg/dL (70-110)
[2020-03-31] MEDS: DiphenhydrAMINE 25 MG Capsule PO (00:08)
[2020-03-31 02:37] VITALS: BP 140/76; PULSE 76; RESP 18; TEMP 36.8; O2SAT 97
[2020-03-31] MEDS: Gabapentin 300 MG Capsule 900 MG PO ×2 (06:42→13:54)
[2020-03-31] MEDS: Cefazolin 2 GM in 0.9% Normal Saline 100 ML IV ×2 (06:42→13:55)
[2020-03-31 06:51] LABS: Bedside Glucose 139 mg/dL (70-110)
[2020-03-31] MEDS: Celecoxib 200 MG Capsule PO (08:44)
[2020-03-31] MEDS: Loratadine 10 MG Tablet PO (08:44)
[2020-03-31] MEDS: Aspirin E.C. 81 MG Tablet 162 MG PO (08:47)
[2020-03-31] MEDS: Magnesium Oxide 400 MG Tablet PO (08:47)
[2020-03-31] MEDS: Famotidine 20 MG Tablet PO (08:47)
[2020-03-31] MEDS: Baclofen 10 MG Tablet 30 MG PO ×2 (08:48→12:06)
[2020-03-31] MEDS: Juven (unflavored) Packet 1 PACKET PO (08:48)
[2020-03-31 08:52] VITALS: BP 120/69; PULSE 81
[2020-03-31] MEDS: Metoprolol Tartrate 25 MG Tablet 12.5 MG PO (08:52)
[2020-03-31] MEDS: amLODIPine 10 MG Tablet PO (08:52)
[2020-03-31 08:54] VITALS: BP 120/26; PULSE 81; RESP 16; TEMP 36.5; O2SAT 96
[2020-03-31] MEDS: Lisinopril 5 MG Tablet PO (10:14)
[2020-03-31 10:25] LABS: Bedside Glucose 329 mg/dL (70-110)
[2020-03-31 11:55] VITALS: PULSE 80
[2020-03-31] MEDS: Insulin Lispro 100 UNIT/ML INSULN.PEN SC (12:04)
[2020-03-31 12:11] LABS: Bedside Glucose 265 mg/dL (70-110)
--- NOTE | 2020-03-31 12:11 | PN_ITS ---
Reason for Visit: Right third finger osteomyelitis Objective: Patient right third finger had frostbite in September 2019. After that he gets Raynaud phenomenon on exposure to cold. Patient has probably history of rheumatoid arthritis and has significant joint deformity of MCP and PIP joints, more pronounced in the right hand. Vitals/I&O's: Vital Signs Temp Pulse Resp BP Pulse Ox 97.7 F L 80 16 120/26 L 96 03/31/20 08:54 03/31/20 11:55 03/31/20 08:54 03/31/20 08:54 03/31/20 08:54 Oxygen Delivery Method Room Air Weight: 214 lb 15.987 oz Body Mass Index (BMI) 30.7 Finger Stick Blood Glucose 107 Intake and Output for Last 24 Hours 03/29/20 03/30/20 03/31/20 23:59 23:59 23:59 Intake Total 2766 / 2766 3245 / 3245 110 / 110 Output Total 600 / 600 Balance 2166 / 2166 3245 / 3245 110 / 110 General: Alert, Oriented x3, Cooperative HEENT: Atraumatic, PERRLA, EOMI, Normocephalic Neck: Supple, No JVD, Negative Carotid Bruits Lungs: Clear to auscultation, Normal air movement Cardiovascular: Regular rate, Regular Rhythm, Normal S1, Normal S2, No murmurs Abdomen: Bowel Sounds Present, Soft, Non Tender, Non-Distended Extremities: No edema, Capillary Refill Less than 3 Seconds, - - Right arm PICC line Skin: Ulcer/ Wound - Ulcer of right third finger with osteomyelitis Musculoskeletal: No Tenderness to Palpation of Joints or Extremities, Arthritic Changes - Arthritic changes of PIP and MCP joints of both hands more pronounced on right thumb and other 4 fingers. No appreciable tenderness. Neurological: Cranial nerves II-XII grossly intact, Deep Tendon Reflexes 2+/4 and Symmetrical, Neuro grossly intact Psych/Mental Status: Normal Affect, Appropriate Microbiology Past 72 Hours 03/28/20 Unknown Tissue - Finger Gram Stain - Final 03/28/20 Unknown Tissue - Finger Wound Culture - Final Staphylococcus aureus 03/28/20 Unknown Tissue - Finger Anaerobic Culture - Preliminary 03/28/20 Unknown Tissue - Finger Gram Stain - Final 03/28/20 Unknown Tissue - Finger Wound Culture - Final Staphylococcus aureus 03/28/20 Unknown Tissue - Finger Anaerobic Culture - Final No anaerobic bacteria isolated. 03/29/20 16:23 Stool C. difficile DNA Amplification - Final Laboratory Results 03/30/20 16:41: POC Glucose 236 H 03/30/20 21:13: POC Glucose 206 H 03/31/20 06:45: POC Glucose 139 H 03/31/20 10:18: POC Glucose 329 H 03/31/20 11:54: POC Glucose 265 H Current Medications Albuterol Sulfate (Ventolin Aerosols) 2.5 mg INHALATION Q4H PRN PRN Reason: SOB &/OR WHEEZING Amlodipine Besylate (Norvasc) 10 mg PO DAILY [facility] Last Admin: 03/31/20 08:52 Dose: 10 mg Documented by: [facility] Last Admin: 03/31/20 08:47 Dose: 162 mg Documented by: Baclofen (Lioresal) 30 mg PO TIDCM [facility] Last Admin: 03/31/20 12:06 Dose: 30 mg Documented by: Celecoxib (Celebrex) 200 mg PO DAILY [facility] Last Admin: 03/31/20 08:44 Dose: 200 mg Documented by: Cholecalciferol (Vitamin D (25mcg)) 5,000 unit PO DAILY [facility] Last Admin: 03/31/20 08:44 Dose: 5,000 unit Documented by: Cyanocobalamin (Vitamin B12) 1,000 mcg IM Q30D [facility] Diphenhydramine HCl (Benadryl) 25 mg PO Q6H PRN PRN PRN Reason: ITCHING Last Admin: 03/31/20 00:08 Dose: 25 mg Documented by: Docusate Sodium (Colace) 100 mg PO BID [facility] Last Admin: 03/31/20 08:53 Dose: Not Given Documented by: Famotidine (Pepcid) 20 mg PO DAILY [facility] Last Admin: 03/31/20 08:47 Dose: 20 mg Documented by: Furosemide (Lasix) 20 mg PO BID PRN PRN Reason: water retention Gabapentin (Neurontin) 900 mg PO TID [facility] Last Admin: 03/31/20 06:42 Dose: 900 mg Documented by: Sodium Chloride () 250 mls @ 15 mls/hr IV .[id number] PRN PRN Reason: Saline Flush Sodium Chloride () 250 mls @ 15 mls/hr IV .[id number] PRN PRN Reason: Additional IVPB Infusion Lactated Ringer's () 1,000 mls @ 60 mls/hr IV .[id number] [facility] Last Admin: 03/30/20 17:55 Dose: 60 mls/hr Documented by: Cefazolin Sodium 2 gm/ Sodium (Chloride) 110 mls @ 150 mls/hr IV Q8 [facility] Last Infusion: 03/31/20 07:30 Dose: Infused Documented by: Insulin Glargine (Lantus (Bk)) 20 units SC DAILY [facility] Last Admin: 03/31/20 10:14 Dose: 20 u Documented by: Insulin Human Lispro (Humalog Kwikpen (Bk)) 0 unit SC ACHS [facility]; Protocol Last Admin: 03/31/20 12:04 Dose: 3 u Documented by: Lisinopril (Zestril) 5 mg PO DAILY [facility] Last Admin: 03/31/20 10:14 Dose: 5 mg Documented by: Loperamide HCl (Imodium) 2 mg PO Q4H PRN PRN Reason: DIARRHEA/LOOSE STOOLS Last Admin: 03/30/20 12:19 Dose: 2 mg Documented by: Loratadine (Claritin) 10 mg PO DAILY [facility] Last Admin: 03/31/20 08:44 Dose: 10 mg Documented by: Magnesium Oxide (Mag-Ox 400) 400 mg PO DAILY [facility] Last Admin: 03/31/20 08:47 Dose: 400 mg Documented by: Melatonin (Melatonin) 3 mg PO QHS PRN PRN Reason: INSOMNIA Last Admin: 03/29/20 03:11 Dose: 3 mg Documented by: Metoprolol Tartrate (Lopressor (Beta Carter)) 12.5 mg PO BID [facility] Last Admin: 03/31/20 08:52 Dose: 12.5 mg Documented by: Nortriptyline HCl (Pamelor) 50 mg PO QHS [facility] Last Admin: 03/30/20 21:01 Dose: 50 mg Documented by: Ondansetron HCl (Zofran) 4 mg IV Q6H PRN PRN PRN Reason: NAUSEA Oxycodone HCl (Oxyir) 5 mg PO Q4H PRN PRN PRN Reason: Pain Score 6-10/10 Last Admin: 03/29/20 15:18 Dose: 5 mg Documented by: Simvastatin (Zocor) 10 mg PO QHS [facility] Last Admin: 03/30/20 20:59 Dose: 10 mg Documented by: Sodium Chloride () 10 - 40 ml IV UD PRN PRN Reason: SALINE FLUSH STROKE Vital Signs/Narrative: Vital Signs Temp Pulse Resp BP Pulse Ox 03/31/20 11:55 80 03/31/20 08:54 97.7 F L 81 16 120/26 L 96 03/31/20 08:52 81 120/69 Medical Necessity - Tobacco Use Smoking Status: Never smoker Assessment/Plan All Active Problems (Last Reviewed 03/27/20 @ 15:[address] Pascual Fleming, DO) Abscess of right middle finger (Acute) Finger osteomyelitis, right (Acute) Cellulitis of finger, right (Acute) Ulcer of left foot with fat layer exposed (Acute) Non-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ulcer of other part of right foot with fat layer exposed (Resolved) Type 2 diabetes mellitus with foot ulcer (Acute) Type 2 diabetes mellitus with other specified complication (Acute) Diabetic ulcer of left foot with muscle involvement without evidence of necrosis (Resolved) Non-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ulcer of other part of right foot with fat layer exposed (Resolved) Colonization status (Resolved) Segmental and somatic dysfunction of lumbar region (Acute) Segmental and somatic dysfunction of thoracic region (Acute) Segmental and somatic dysfunction of cervical region (Acute) Acute congestive heart failure (Acute) Segmental and somatic dysfunction of pelvic region (Acute) Dyspnea on exertion (Acute) Nonhealing nonsurgical wound with fat layer exposed (Acute) Non-healing surgical wound (Acute) Acute left-sided weakness (Resolved) Cellulitis lft foot failed outpatient tx (Resolved) Diabetic foot ulcer associated with type 2 diabetes mellitus (Resolved) Left sided numbness (Resolved) Muscle wasting disorder (Resolved) There is a 51-year-old patient gentleman with history of diabetes was admitted with nonhealing infected ulcer over right middle finger, initiated by frostbite in September 2019 and then complicated by rainouts phenomenon. 1. Right 3rd finger MSSA osteomyelitis: Patient had several rounds of antibiotics without improvement. Poor healing. Currently on IV cefazolin 2 g q. 8 hourly. ID consult for further discharge antibiotic recommendation and follow-up. Patient had incision and drainage of dorsal right third finger on 03/28. Articular surfaces were destroyed. Multiple loose pieces of bone involved with infection including insertion of FDP tendon. The extensor tendon insertion into the distal phalanx was not there due to severe erosion of the DIP joint and severity of the infection. Anticipate IV antibiotics for 4 to 6 weeks. PICC line was placed on 03/29. Discussed with the porter sample case 2. DM2: Glucose is fairly controlled. On glargine. A1c 6.5 on 03/13. Accu- Cheks before meals and at bedtime and cover with sliding scale insulin. 3. Raynaud's phenomenon * continue amlodipine * complicates recovery 4. Chronic conditions: CAD, HTN, PAD, CVA. Stable. continue home medications 5. VTE prophylaxis: SCDs 7. Chronic diarrhea most likely secondary to antibiotic use; antibiotic associated diarrhea: C. difficile is negative. DVT prophylaxis: Lovenox 40 subcu daily. Discontinue if platelet count drops less than 50,000 or hemoglobin less than 8 g% Inpatient E&M: [id number] [facility] Hosp L2
--- NOTE | 2020-03-31 13:14 | PCM.HP.ID ---
Problem List (1) Finger osteomyelitis, right Status: Acute Reason for Consult: osteo Consulted by: Dr. Clarke History of Present Illness: The patient is a 59 year old M []with DM, presented with several months of R middle finger pain, swelling, redness, purulent drainage. Sx started after frostbite in October. Other fingers healed except for the middle. Has been on abx basically since October. Follows at wound center for L foot ulcer, admitted here for surg I&D by Dr. Bishop 03/28. Surg cx with MSSA. Abx now with cefazolin. Diarrhea resolved. Feeling ok. Full ROS performed and neg except as noted above. - Medical History Past Medical History (Chronic Problems): Chronic Problems (Last Reviewed 03/27/20 @ 15:[address] 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 grade 3 treated medically Hammertoe of right foot (Chronic) Delayed wound healing (Chronic) Malnutrition (Chronic) Peripheral vascular disease (Chronic) Type 2 diabetes mellitus with diabetic polyneuropathy (Chronic) Atherosclerotic heart disease of grindstone coronary artery without angina pectoris (Chronic) Old myocardial infarction (Chronic) DDD (degenerative disc disease), lumbar (Chronic) with Grade I anterolisthesis of L5 on S1. H/O stroke associated with blood clotting tendency (Chronic) H/O three vessel coronary artery bypass (Chronic ~04/12/18) MACK-LAD, SVG-OM, SVG to left PDA by Dr. Zhu of [facility] Essential (primary) hypertension (Chronic) Other specified peripheral vascular diseases (Chronic) Skin ulcer of finger with fat layer exposed (Chronic) necrotic ulcer dorsum right long finger at DIP joint 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) Allergies/Adverse Reactions: Allergies atorvastatin Adverse Reaction (Verified 03/26/20 17:21) Unknown metformin Adverse Reaction (Verified 03/26/20 17:21) Diarrhea Home Medications: Ambulatory Orders Medication Instructions Recorded Ammonium Lactate [Amlactin] 57 gm TP PRN PRN 10/04/17 Celecoxib [Celebrex] 200 mg PO DAILY 10/04/17 Cholecalciferol (Vitamin D3) 5,000 unit PO DAILY 10/04/17 [Vitamin D3] Levomefolate/B6/B12/Algal Oil 1 ea PO DAILY 10/04/17 [Metanx Capsule] Nortriptyline HCl 50 mg PO QHS 10/04/17 Biotin 1 mg PO DAILY 04/01/18 Desonide 0.05% [Desowen 0.05% 1 applic TOPICAL BID PRN 04/01/18 Cream] Diflorasone Diacetate [Psorcon] 1 applicatio TP BID PRN 04/01/18 Insulin Glargine,Hum.rec.anlog 20 unit SQ DAILY 04/01/18 [Basaglar Kwikpen U-100] Insulin Lispro [Humalog KwikPen] See Protocol SQ TIDCM 04/01/18 Ketoconazole [Nizoral] 1 applic TOPICAL DAILY PRN 04/01/18 Magnesium 250 mg PO DAILY 04/01/18 metoprolol tartrate 25 mg tablet 12.5 mg PO BID tab MDD 1.5 tabs 07/19/18 albuterol sulfate 90 mcg/actuation 2 puff INHALATION Q4H PRN g 08/13/19 aerosol inhaler amlodipine 10 mg tablet 10 mg PO DAILY 08/13/19 becaplermin 0.01 % topical gel 1 applic TOPICAL DAILY PRN 08/13/19 cetirizine 10 mg tablet 10 mg PO DAILY 08/13/19 gabapentin 300 mg capsule 900 mg PO TID cap 08/13/19 simvastatin 10 mg tablet 10 mg PO QHS 08/13/19 vardenafil 20 mg tablet 20 mg PO DAILY PRN 08/13/19 Cyanocobalamin [Vitamin B12] 1,000 mcg IM Q30D 08/22/19 aspirin 81 mg tablet,delayed 162 mg PO DAILY tab MDD . 10/12/19 release baclofen 20 mg tablet 30 mg PO TID tab 10/12/19 famotidine 20 mg tablet 20 mg PO DAILY 10/12/19 furosemide 20 mg tablet 20 mg PO BID PRN tab 10/12/19 Lisinopril 5 mg PO QDAY 03/26/20 Cefazolin 2 gm IV Q8 40 Days #120 vial 03/31/20 - Social History Tobacco Use: non-smoker Vital Signs Temp Pulse Resp BP Pulse Ox 97.7 F L 80 16 120/26 L 96 03/31/20 08:54 03/31/20 11:55 03/31/20 08:54 03/31/20 08:54 03/31/20 08:54 Oxygen Delivery Method Room Air Weight: 97.522 kg Body Mass Index (BMI) 30.7 Finger Stick Blood Glucose 107 Microbiology Past 72 Hours 03/28/20 Unknown Gram Stain - Final Tissue - Finger Wound Culture - Final Staphylococcus aureus Anaerobic Culture - Preliminary 03/28/20 Unknown Gram Stain - Final Tissue - Finger Wound Culture - Final Staphylococcus aureus Anaerobic Culture - Final No anaerobic bacteria isolated. 03/29/20 16:23 C. difficile DNA Amplification - Final Stool - Other Studies Radiology: [] reviewed Other Studies: [] Route of nutrition/ use of supplements: [] Nutritional Intake: [] IV Site: [] Seay Catheter: [] - Physical Exam General: Alert, Oriented x3, Cooperative, No apparent distress HEENT: Atraumatic, PERRLA, EOMI Neck: Supple, No Nodes Lungs: Clear to auscultation, Normal air movement Cardiovascular: Regular rate, Regular Rhythm, No murmurs Abdomen: Soft, Non Tender, Non-Distended Extremities: No edema Skin: Ulcer/ Wound - Shallow, dry ulcer on plantar L foot. R 3rd finger with swelling. IV Site: PICC, without redness Musculoskeletal: No Tenderness to Palpation of Joints or Extremities Neurological: Cranial nerves II-XII grossly intact - Assessment/Plan Antibiotics: [] Assessment/Plan: [] R 3rd finger mssa osteo - now s/p I&D by Dr. Bishop 03/28/20. Abx narrowed to cefazolin, will order 6 week course, stop date 05/09/20. Weekly bmp, cbc, and esr. ID followup in 2 weeks at wound center. Thank you, d/w machine adjuster leader case trim.
[2020-03-31] MEDS: 0.9% Saline Lock 10 ML Syringe IV (13:54)
[2020-03-31] MEDS: Enoxaparin 40 MG/0.4 ML Syringe SC (13:54)
[2020-03-31] MEDS: Lactated Ringers 1,000 ML 60 ML IV (13:55)
[2020-03-31 14:06] VITALS: BP 107/3; PULSE 77; RESP 18; TEMP 36.8; O2SAT 98
--- NOTE | 2020-03-31 14:13 | NURSING ---
wound photo: right long finger
--- NOTE | 2020-03-31 14:14 | NURSING ---
wound photo: left plantar foot
--- NOTE | 2020-03-31 14:40 | CASEMGMT ---
LISSA PEREA updated that patient will need IV ATBs at discharge. LISSA PEREA in to discuss with patient, he would like [facility] for infusion company after reviewing list. Referral sent to [facility]. LISSA PEREA attempted to setup HHC with 9 agencies that declined due to no being in the service area. LISSA PEREA updated [facility] and they suggested one time contract with [facility]. LISSA PEREA called and placed referral to [facility]. [facility] is able to accept the patient with start of care for this evening. LISSA PEREA updated [facility], patient is covered at 100% and will arrange for delivery tonight at 2100. LISSA PEREA updated Dr. Bishop and the patient regarding HHC and infusion company. Patient voiced understanding and had no further questions or concerns at this time.
--- NOTE | 2020-03-31 15:21 | DCINST_ITS ---
You will use the following diet at home:: Calorie/Carbohydrate Controlled (specify 1200, 1400, etc), Other - encourage nutritional supplementation with protein to help the healing process. Discharge Activity: May Shower - may get wound wet in the shower at the time of the silver dressing change. May shower in (days): 1 - may shower at the time of the silver dressing change. May resume sexual activity in: No Restrictions Weight Bearing Status: Weight bearing as tolerated Keep extremity elevated above heart level: Right Arm Call your doctor if your incision/area has: Continuous Slow Oozing, Sudden Increased Bleeding, Increased Pain/ Swelling, Increased Redness, Foul Smelling Discharge, Swelling at the incision site Call your doctor if you observe: Fever of 101 or Higher, Coldness, Increased Pain, Shortness of breath, Chest pain, Calf discomfort, Uncontrolled pain Suture Line Care: - - daily aquacel silver dressing changes followed by gauze dressing. Change Dressing in (Days):: 1 - silver dressing changes daily. Cleanse incision/area with: Soap & Water - may cleanse the wound with soap and water at the time of the silver dressing change., - - may get wound wet in the shower at the time of the silver dressing change. Allergies/Adverse Reactions: Allergies atorvastatin Adverse Reaction (Verified 03/26/20 17:21) Unknown metformin Adverse Reaction (Verified 03/26/20 17:21) Diarrhea Medications to take at Discharge Ammonium Lactate [Amlactin] 57 gm TP PRN PRN 10/04/17 Celecoxib [Celebrex] 200 mg PO DAILY 10/04/17 Cholecalciferol (Vitamin D3) [Vitamin D3] 5,000 unit PO DAILY 10/04/17 Levomefolate/B6/B12/Algal Oil [Metanx Capsule] 1 ea PO DAILY 10/04/17 Nortriptyline HCl 50 mg PO QHS 10/04/17 Biotin 1 mg PO DAILY 04/01/18 Desonide 0.05% [Desowen 0.05% Cream] 1 applic TOPICAL BID PRN 04/01/18 Diflorasone Diacetate [Psorcon] 1 applicatio TP BID PRN 04/01/18 Insulin Glargine,Hum.rec.anlog [Basaglar Kwikpen U-100] 20 unit SQ DAILY 04/01/18 Insulin Lispro [Humalog KwikPen] See Protocol SQ TIDCM 04/01/18 Ketoconazole [Nizoral Cream] 1 applic TOPICAL DAILY PRN 04/01/18 Magnesium 250 mg PO DAILY 04/01/18 metoprolol tartrate 25 mg tablet 12.5 mg PO BID tab MDD 1.5 tabs 07/19/18 albuterol sulfate 90 mcg/actuation aerosol inhaler 2 puff INHALATION Q4H PRN g 08/13/19 amlodipine 10 mg tablet 10 mg PO DAILY 08/13/19 becaplermin 0.01 % topical gel 1 applic TOPICAL DAILY PRN 08/13/19 cetirizine 10 mg tablet 10 mg PO DAILY 08/13/19 gabapentin 300 mg capsule 900 mg PO TID cap 08/13/19 simvastatin 10 mg tablet 10 mg PO QHS 08/13/19 vardenafil 20 mg tablet 20 mg PO DAILY PRN 08/13/19 Cyanocobalamin [Vitamin B12] 1,000 mcg IM Q30D 08/22/19 aspirin 81 mg tablet,delayed release 162 mg PO DAILY tab MDD . 10/12/19 baclofen 20 mg tablet 30 mg PO TID tab 10/12/19 famotidine 20 mg tablet 20 mg PO DAILY 10/12/19 furosemide 20 mg tablet 20 mg PO BID PRN tab 10/12/19 Lisinopril 5 mg PO QDAY 03/26/20 Cefazolin 2 gm IV Q8 40 Days #120 vial 03/31/20 Docusate Sodium [Colace] 100 mg PO BID cap 03/31/20 Gauze Bandage [Gauze Pads] 1 ea TP DAILY 30 Days #30 bandage 03/31/20 Gauze Bandage [Kerlix] 1 ea TP DAILY 30 Days #30 bandage 03/31/20 Insulin Lispro [Humalog KwikPen] See Protocol SUBCUT ACHS insuln.pen 03/31/20 Melatonin 3 mg PO QHS PRN tab 03/31/20 Oxycodone HCl/Acetaminophen [Percocet 5/325] 1 tablet PO Q4H PRN PRN 7 Days #40 tablet 03/31/20 Silver/Hydrocolloid Dressing [Aquacel-Ag W-Hydrofiber Dress] 1 ea TP DAILY 30 Days #5 bandage 03/31/20 The following prescriptions were given: Silver/Hydrocolloid Dressing [Aquacel-Ag W-Hydrofiber Dress] 1 ea TP DAILY 30 Da ys #5 bandage Prescription Printed Cefazolin 2 gm IV Q8 40 Days #120 vial Prescription Printed Gauze Bandage [Gauze Pads] 1 ea TP DAILY 30 Days #30 bandage Prescription Printed Gauze Bandage [Kerlix] 1 ea TP DAILY 30 Days #30 bandage Prescription Printed Oxycodone HCl/Acetaminophen [Percocet 5/325] 1 tablet PO Q4H PRN PRN 7 Days #40 tablet PRN Reason: Pain Score 4-5/10 Transmission Status: Sent to [id number] Primary Care Physician: Avery Escalante DO [Primary Care Provider] - Test Results: Test results from this visit will be discussed in further detail at your follow- up appointment, if applicable. Please Follow Up With: Lio Bishop MD When: tuesday04/07/20 at wound center. call [phone] for appt time. Proposed Discharge Date: 03/31/20
[2020-03-31 15:25] VITALS: BP 142/80; PULSE 77; RESP 16; TEMP 36.5; O2SAT 98
--- NOTE | 2020-03-31 15:26 | PCM.DC.SUM ---
Discharge Date and Diagnosis Date of Admission: 03/26/20 Date of Discharge: 03/31/20 - Primary Discharge Diagnosis Acute Problems: Nonhealing infected diabetic abscess ulcer dorsum right long finger at DIP joint with cellulitis. Osteomyelitis. - Secondary Discharge Diagnosis Chronic Problems: Chronic ulcer of left foot with necrosis of muscle Chronic ulcer of great toe of left foot with fat layer exposed Type 2 diabetes mellitus with diabetic polyneuropathy Hammertoe of right foot Hammertoe of left foot History of frostbite -left long finger, right index finger, right long finger, and right ring finger Skin necrosis dorsum right long finger at DIP joint Tobacco abuse Raynaud disease Tinea unguium Peripheral vascular disease Atherosclerotic heart disease of [place] coronary artery without angina pectoris (Chronic) Old myocardial infarction DDD (degenerative disc disease), lumbar H/O stroke associated with blood clotting tendency H/O three vessel coronary artery bypass Essential (primary) hypertension Xerosis cutis Hospital Course and Treatment Imaging Results: Diagnostic Data Hand X-Ray 03/26/20 17:42 IMPRESSION: Osseous destruction with erosive change of the third middle and distal phalanges consistent with osteomyelitis versus osteolysis. Arthritic change. Electronically Signed: Neil Melo MD at 18:37 EDT , Service support , Upper Extremity CT 03/26/20 20:15 IMPRESSION: Osseous destruction with erosive change of the third middle and distal phalanges consistent with osteomyelitis versus osteolysis. Arthritic change. Electronically Signed: Neil Melo MD at 21:07 EDT , Service support , CONSULTATIONS Hospitalist Group - Dr. Fleming and Dr. Clarke. Infectious Diseases - Dr. Abdi. Operations: - - 03/28/20 - Surgical preparation dorsal aspect right long finger at DIP joint with incision and drainage and excisional debridement nonhealing infected diabetic abscess ulcer and partial ostectomy proximal distal phalanx and distal middle phalanx for osteomyelitis. Procedures: PICC line placement Summary of Care Provided: 59-year-old man with a history of diabetes has a nonhealing ulcer dorsum right long finger at DIP joint. He sustained frostbite back on October 03, 2019 involving his left long finger, right index finger, right long finger, and right ring finger. He was seen at [facility]. After careful observation to look for areas of demarcation, all the fingers survived with the exception of some skin necrosis on the right long finger. Wound care has been with Silver dressing changes. He had wound culture in December which showed Staphylococcus aureus and he was treated with Doxycycline. He had a repeat culture in February which showed Staphylococcus aureus and he was treated with Levaquin as it was resistant to Tetracycline. 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 I discussed with him at the Wound Center that his right long finger is at increased risk for infection because of exposure to chemicals which may lead to an eventual amputation. He was at the Wound Center for treatment of a foot ulcer and it was noted his right long finger showed increased redness and swelling and tenderness. He went to the ED for evaluation. He has failed outpatient treatment and admission was required for IV antibiotics and possible operative intervention. The ulcer has extended to the underlying bone. There is concern about osteomyelitis. He was started on IV Vancomycin. Patient is right hand dominant. Hospitalist Group was consulted for medical management. The next day there was a little improvement and operative intervention was decided. ON the following day, 03/28/20, he was taken to the operating room where he underwent surgical preparation dorsal aspect right long finger at DIP joint with incision and drainage and excisional debridement nonhealing infected diabetic abscess ulcer and partial ostectomy proximal distal phalanx and distal middle phalanx for osteomyelitis. DIP joint was severely eroded. Articular surfaces were destroyed. Multiple loose pieces of bone involved with infection including insertion of FDP tendon. The extensor tendon insertion into the distal phalanx was not there due to severe erosion of the DIP joint and severity of the infection. Wound care was started with Silver dressing changes the next day. Infectious Diseases was consulted for antibiotic management. Wound culture showed Staphylococcus aureus. Pathology was pending at the time of discharge but strongly suspect osteomyelitis. His antibiotics were changed from Vancomycin to Ancef. It was recommended to proceed with 6 weeks of IV Ancef. A PICC line was placed. On the third postop day, arrangements were made for Home Health and the [facility] for the IV antibiotics and he was discharged home in stable condition. He will followup at the Wound Center in one week. A script was written for Percocet for pain (40 tabs). Subjective: Postop #3 Patient resting comfortably. Tolerated Silver dressing change. - Physical Exam Vitals/I&O's: Vital Signs Temp Pulse Resp BP Pulse Ox 98.3 F 77 18 107/3 L 98 03/31/20 14:06 03/31/20 14:06 03/31/20 14:06 03/31/20 14:06 03/31/20 14:06 Oxygen Delivery Method Room Air Weight: 214 lb 15.987 oz Body Mass Index (BMI) 30.7 Finger Stick Blood Glucose 107 Intake and Output for Last 24 Hours 03/29/20 03/30/20 03/31/20 23:59 23:59 23:59 Intake Total 2766 / 2766 3245 / 3245 1220 / 1220 Output Total 600 / 600 Balance 2166 / 2166 3245 / 3245 1220 / 1220 General: Alert, Oriented x3 HEENT: PERRLA, EOMI Oral: Moist Mucosa Neck: Supple Abdomen: Soft, Non-Distended Skin: Ulcer/ Wound - right long finger wound clean. Good bleeding seen. No evidence of residual infection. Redness is a little better. Swelling slowly resolving. Redressed wound with Aquacel Silver. Neurological: Cranial nerves II-XII grossly intact Psych/Mental Status: Normal Affect, Appropriate Microbiology Past 72 Hours 03/28/20 Unknown Tissue - Finger Gram Stain - Final 03/28/20 Unknown Tissue - Finger Wound Culture - Final Staphylococcus aureus 03/28/20 Unknown Tissue - Finger Anaerobic Culture - Preliminary 03/28/20 Unknown Tissue - Finger Gram Stain - Final 03/28/20 Unknown Tissue - Finger Wound Culture - Final Staphylococcus aureus 03/28/20 Unknown Tissue - Finger Anaerobic Culture - Final No anaerobic bacteria isolated. 03/29/20 16:23 Stool C. difficile DNA Amplification - Final Laboratory Results 03/30/20 16:41: POC Glucose 236 H 03/30/20 21:13: POC Glucose 206 H 03/31/20 06:45: POC Glucose 139 H 03/31/20 10:18: POC Glucose 329 H 03/31/20 11:54: POC Glucose 265 H Current Medications Albuterol Sulfate (Ventolin Aerosols) 2.5 mg INHALATION Q4H PRN PRN Reason: SOB &/OR WHEEZING Amlodipine Besylate (Norvasc) 10 mg PO DAILY [facility] Last Admin: 03/31/20 08:52 Dose: 10 mg Documented by: Aspirin (Ecotrin) 162 mg PO DAILYCM [facility] Last Admin: 03/31/20 08:47 Dose: 162 mg Documented by: Baclofen (Lioresal) 30 mg PO TIDCM [facility] Last Admin: 03/31/20 12:06 Dose: 30 mg Documented by: Celecoxib (Celebrex) 200 mg PO DAILY [facility] Last Admin: 03/31/20 08:44 Dose: 200 mg Documented by: Cholecalciferol (Vitamin D (25mcg)) 5,000 unit PO DAILY [facility] Last Admin: 03/31/20 08:44 Dose: 5,000 unit Documented by: Cyanocobalamin (Vitamin B12) 1,000 mcg IM Q30D [facility] Diphenhydramine HCl (Benadryl) 25 mg PO Q6H PRN PRN PRN Reason: ITCHING Last Admin: 03/31/20 00:08 Dose: 25 mg Documented by: Docusate Sodium (Colace) 100 mg PO BID [facility] Last Admin: 03/31/20 08:53 Dose: Not Given Documented by: Enoxaparin Sodium (Lovenox) 40 mg SC DAILY [facility] Last Admin: 03/31/20 13:54 Dose: 40 mg Documented by: Famotidine (Pepcid) 20 mg PO DAILY [facility] Last Admin: 03/31/20 08:47 Dose: 20 mg Documented by: Furosemide (Lasix) 20 mg PO BID PRN PRN Reason: water retention Gabapentin (Neurontin) 900 mg PO TID [facility] Last Admin: 03/31/20 13:54 Dose: 900 mg Documented by: Sodium Chloride () 250 mls @ 15 mls/hr IV .[id number] PRN PRN Reason: Saline Flush Sodium Chloride () 250 mls @ 15 mls/hr IV .[id number] PRN PRN Reason: Additional IVPB Infusion Lactated Ringer's () 1,000 mls @ 60 mls/hr IV .[id number] [facility] Last Admin: 03/31/20 13:55 Dose: 60 mls/hr Documented by: Cefazolin Sodium 2 gm/ Sodium (Chloride) 110 mls @ 150 mls/hr IV Q8 [facility] Last Infusion: 03/31/20 14:50 Dose: Infused Documented by: Insulin Glargine (Lantus (Bkc)) 20 units SC DAILY [facility] Last Admin: 03/31/20 10:14 Dose: 20 u Documented by: Insulin Human Lispro (Humalog Kwikpen (Bkc)) 0 unit SC [facility]; Protocol Last Admin: 03/31/20 12:04 Dose: 3 u Documented by: Lisinopril (Zestril) 5 mg PO DAILY [facility] Last Admin: 03/31/20 10:14 Dose: 5 mg Documented by: Loperamide HCl (Imodium) 2 mg PO Q4H PRN PRN Reason: DIARRHEA/LOOSE STOOLS Last Admin: 03/30/20 12:19 Dose: 2 mg Documented by: Loratadine (Claritin) 10 mg PO DAILY [facility] Last Admin: 03/31/20 08:44 Dose: 10 mg Documented by: Magnesium Oxide (Mag-Ox 400) 400 mg PO DAILY [facility] Last Admin: 03/31/20 08:47 Dose: 400 mg Documented by: Melatonin (Melatonin) 3 mg PO QHS PRN PRN Reason: INSOMNIA Last Admin: 03/29/20 03:11 Dose: 3 mg Documented by: Metoprolol Tartrate (Lopressor (Beta Acrter)) 12.5 mg PO BID [facility] Last Admin: 03/31/20 08:52 Dose: 12.5 mg Documented by: Nortriptyline HCl (Pamelor) 50 mg PO QHS [facility] Last Admin: 03/30/20 21:01 Dose: 50 mg Documented by: Ondansetron HCl (Zofran) 4 mg IV Q6H PRN PRN PRN Reason: NAUSEA Oxycodone HCl (Oxyir) 5 mg PO Q4H PRN PRN PRN Reason: Pain Score 6-10/10 Last Admin: 03/29/20 15:18 Dose: 5 mg Documented by: Simvastatin (Zocor) 10 mg PO QHS [facility] Last Admin: 03/30/20 20:59 Dose: 10 mg Documented by: Sodium Chloride () 10 - 40 ml IV UD PRN PRN Reason: SALINE FLUSH Last Admin: 03/31/20 13:54 Dose: 10 ml Documented by: Discharge Diet: Carb Control Diet, - - encourage nutritional supplementation with protein to help the healing process. Discharge Activity: May Shower - may get wound wet in the shower at the time of the silver dressing change. May shower in (days): 1 - may shower at the time of the silver dressing change. May resume sexual activity in: No Restrictions Weight Bearing Status: Weight bearing as tolerated Keep extremity elevated above heart level: Right Arm Call your doctor if your incision/area has: Continuous Slow Oozing, Sudden Increased Bleeding, Increased Pain/ Swelling, Increased Redness, Foul Smelling Discharge, Swelling at the incision site Call your doctor if you observe: Fever of 101 or Higher, Coldness, Increased Pain, Shortness of breath, Chest pain, Calf discomfort, Uncontrolled pain Suture Line Care: - - daily aquacel silver dressing changes followed by gauze dressing. Change Dressing in (Days):: 1 - silver dressing changes daily. Cleanse incision/area with: Soap & Water - may cleanse the wound with soap and water at the time of the silver dressing change., - - may get wound wet in the shower at the time of the silver dressing change. Home Medications: Medications to take at Discharge Ammonium Lactate [Amlactin] 57 gm TP PRN PRN 10/04/17 Celecoxib [Celebrex] 200 mg PO DAILY 10/04/17 Cholecalciferol (Vitamin D3) [Vitamin D3] 5,000 unit PO DAILY 10/04/17 Levomefolate/B6/B12/Algal Oil [Metanx Capsule] 1 ea PO DAILY 10/04/17 Nortriptyline HCl 50 mg PO QHS 10/04/17 Biotin 1 mg PO DAILY 04/01/18 Desonide 0.05% [Desowen 0.05% Cream] 1 applic TOPICAL BID PRN 04/01/18 Diflorasone Diacetate [Psorcon] 1 applicatio TP BID PRN 04/01/18 Insulin Glargine,Hum.rec.anlog [Basaglar Kwikpen U-100] 20 unit SQ DAILY 04/01/18 Insulin Lispro [Humalog KwikPen] See Protocol SQ TIDCM 04/01/18 Ketoconazole [Nizoral Cream] 1 applic TOPICAL DAILY PRN 04/01/18 Magnesium 250 mg PO DAILY 04/01/18 metoprolol tartrate 25 mg tablet 12.5 mg PO BID tab MDD 1.5 tabs 07/19/18 albuterol sulfate 90 mcg/actuation aerosol inhaler 2 puff INHALATION Q4H PRN g 08/13/19 amlodipine 10 mg tablet 10 mg PO DAILY 08/13/19 becaplermin 0.01 % topical gel 1 applic TOPICAL DAILY PRN 08/13/19 cetirizine 10 mg tablet 10 mg PO DAILY 08/13/19 gabapentin 300 mg capsule 900 mg PO TID cap 08/13/19 simvastatin 10 mg tablet 10 mg PO QHS 08/13/19 vardenafil 20 mg tablet 20 mg PO DAILY PRN 08/13/19 Cyanocobalamin [Vitamin B12] 1,000 mcg IM Q30D 08/22/19 aspirin 81 mg tablet,delayed release 162 mg PO DAILY tab MDD . 10/12/19 baclofen 20 mg tablet 30 mg PO TID tab 10/12/19 famotidine 20 mg tablet 20 mg PO DAILY 10/12/19 furosemide 20 mg tablet 20 mg PO BID PRN tab 10/12/19 Lisinopril 5 mg PO QDAY 03/26/20 Cefazolin 2 gm IV Q8 40 Days #120 vial 03/31/20 Docusate Sodium [Colace] 100 mg PO BID cap 03/31/20 Gauze Bandage [Gauze Pads] 1 ea TP DAILY 30 Days #30 bandage 03/31/20 Gauze Bandage [Kerlix] 1 ea TP DAILY 30 Days #30 bandage 03/31/20 Insulin Lispro [Humalog KwikPen] See Protocol SUBCUT ACHS insuln.pen 03/31/20 Melatonin 3 mg PO QHS PRN tab 03/31/20 Silver/Hydrocolloid Dressing [Aquacel-Ag W-Hydrofiber Dress] 1 ea TP DAILY 30 Days #5 bandage 03/31/20 oxycodone-acetaminophen 5 mg-325 mg tablet 1 tab PO Q6H PRN 7 Days #28 tab 04/01/20 Following Prescrptions Were Given to Patient: Silver/Hydrocolloid Dressing [Aquacel-Ag W-Hydrofiber Dress] 1 ea TP DAILY 30 Days #5 bandage Prescription Printed Cefazolin 2 gm IV Q8 40 Days #120 vial Prescription Printed Gauze Bandage [Gauze Pads] 1 ea TP DAILY 30 Days #30 bandage Prescription Printed Gauze Bandage [Kerlix] 1 ea TP DAILY 30 Days #30 bandage Prescription Printed Primary Care Physician: Avery Escalante DO [Primary Care Provider] - Please Follow Up With: Lio Bishop MD When: tuesday04/07/20 at wound center. call [phone] for appt time. Disposition: Home Minutes spent on discharge:: 35 Patient Condition:: Stable Medical Necessity - Tobacco Use Smoking Status: Current every day smoker Meaningful Use Info Meaningful Use Diagnoses (Choose all that apply): None applicable
--- NOTE | 2020-04-01 14:34 | CASEMGMT ---
LISSA PEREA Discharge Follow-up Phone Call: MERCEDES: Sean Strata: 11 Call Date: 04/01/2020 Discharge Date: 03/31/2020 Time of Call: 1435 Duration: 5 min Admitting Diagnosis: Non-healing diabetic ulcer LISSA PEREA completed follow-up phone call after recent hospitalization. Patient states he is doing well and he has been completing his IV ATBs. Patient states [facility]. Patient had no questions regarding discharge instructions. Patient to schedule appt with PCP. Patient has appt on 04/[address] Bishop. Patient had no further questions or concerns at this time.
== END 2020-03-31 16:25 | disposition home health service (06) | DRG 364 ==
LOC: ED 18:07 → MS3 20:17
PROVIDERS: Anesthesiology; Family Medicine; Admitting Provider Surgery; Emergency Provider Emergency Medicine; PCP Student in an Organized Health Care Education/Training Program; Visit Provider Internal Medicine
PROC: 0PBT0ZZ Excision of Right Finger Phalanx, Open Approach (ICD-10-PCS; principal; 2020-03-28 13:45)
DX: E11.69 Type 2 diabetes mellitus with other specified complication (principal); M86.141 Other acute osteomyelitis, right hand; B95.61 Methicillin susceptible Staphylococcus aureus infection as the cause of diseases classified elsewhere; E11.622 Type 2 diabetes mellitus with other skin ulcer; L98.492 Non-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ulcer of skin of other sites with fat layer exposed; L03.011 Cellulitis of right finger; L02.511 Cutaneous abscess of right hand; T33.531S Superficial frostbite of right finger(s), sequela; X31.XXXS Exposure to excessive natural cold, sequela; E11.621 Type 2 diabetes mellitus with foot ulcer; L97.523 Non-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ulcer of other part of left foot with necrosis of muscle; L97.522 Non-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ulcer of other part of left foot with fat layer exposed; L97.512 Non-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ulcer of other part of right foot with fat layer exposed; E11.42 Type 2 diabetes mellitus with diabetic polyneuropathy; I25.10 Atherosclerotic heart disease of native coronary artery without angina pectoris; I73.00 Raynaud's syndrome without gangrene; I11.0 Hypertensive heart disease with heart failure; I50.9 Heart failure, unspecified; K52.1 Toxic gastroenteritis and colitis; T36.95XA Adverse effect of unspecified systemic antibiotic, initial encounter; Y92.9 Unspecified place or not applicable; M06.9 Rheumatoid arthritis, unspecified; F17.200 Nicotine dependence, unspecified, uncomplicated; Z91.19 Patient's noncompliance with other medical treatment and regimen; Z79.82 Long term (current) use of aspirin; Z79.4 Long term (current) use of insulin; Z79.1 Long term (current) use of non-steroidal anti-inflammatories (NSAID); Z79.899 Other long term (current) drug therapy; I25.2 Old myocardial infarction; Z86.73 Personal history of transient ischemic attack (TIA), and cerebral infarction without residual deficits; Z95.1 Presence of aortocoronary bypass graft
CPT/HCPCS: 11042; 36415; 36569; 73130; 73200; 80048; 80053; 80202; 82962; 83036; 84134; 85025; 85027; 85610; 85652; 86140; 87070; 87075; 87077; 87102; 87176; 87186; 87205; 87206; 87493; 87635; 88304; 88311; 93005; 97802; 99183; 99281; 99283; G2023; J7040; J7050; J7120; A4216; G0277; J2405; U0003

== ENCOUNTER 2020-04-07 12:46 | Outpatient (RCR) | payer MEDICAID, SELFPAY ==
[2020-04-07 12:46] VITALS: BMI 30.7
[2020-04-07 13:09] LABS: Anion Gap 5 (5-15); BUN 14 mg/dL (7-18); Calcium,Total 9.1 mg/dL (8.5-10.1); Chloride 105 mmol/L (98-107); Creatinine, Serum 0.82 mg/dL (0.70-1.30); EST Glomerular Filtration Rate 102 mL/min (>60); Est Glom Filt Rate - Afr Amer 123 mL/min (>60); Glucose 125 mg/dL (74-106); Potassium 4.1 mmol/L (3.5-5.1); Sodium Level 141 mmol/L (136-145)
[2020-04-07 13:25] LABS: Erythrocyte Sedimentation Rate 40 mm/hr (0-20)
[2020-04-07 13:27] LABS: Hematocrit 39.6 % (40-54); Hemoglobin 12.7 g/dL (13.0-16.5); Mean Corp Hgb Conc 32.1 g/dL (32-36); Mean Corpuscular Hgb 31.9 pg (27.0-32.0); Mean Corpuscular Volume 99.5 fL (80-94); Mean Platelet Vol. 10.8 fl (6.2-12.0); Platelet Count 247 K/mm3 (150-450); RBC Distribution Width CV 13.3 % (11.6-14.6); RBC Distribution Width SD 48.8 fl (35.1-43.9); Red Blood Count 3.98 M/mm3 (4.6-6.2); White Blood Count 5.2 K/mm3 (4.4-11.0)
== END 2020-04-07 18:00 | disposition home or self-care (01) ==
LOC: HHLAB 12:46
PROVIDERS: PCP Student in an Organized Health Care Education/Training Program; Referring Provider Internal Medicine Infectious Disease; Visit Provider Internal Medicine Infectious Disease
DX: M86.9 Osteomyelitis, unspecified (principal); B95.61 Methicillin susceptible Staphylococcus aureus infection as the cause of diseases classified elsewhere
CPT/HCPCS: 80048; 85027; 85652

== ENCOUNTER 2020-04-14 14:30 | Outpatient (RCR) | payer MEDICAID, SELFPAY ==
[2020-03-17 00:25] VITALS: BP 136/78; PULSE 88; RESP 18; TEMP 36.6; O2SAT 100
[2020-03-17 09:19] VITALS: BP 133/56; PULSE 74; RESP 16; TEMP 36.4; BMI 28.7
--- NOTE | 2020-03-17 11:29 | PCM.WC.PN ---
(1) Skin ulcer of finger with fat layer exposed Status: Chronic Current Visit: Yes Code(s): L98.492 - Non-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ulcer of skin of other sites with fat layer exposed Comment: necrotic ulcer dorsum right long finger at DIP joint (2) Type 2 diabetes mellitus with diabetic polyneuropathy Status: Chronic Current Visit: Yes Code(s): E11.42 - Type 2 diabetes mellitus with diabetic polyneuropathy (3) Delayed wound healing Status: Chronic Current Visit: Yes Code(s): T14.8XXD - Other injury of unspecified body region, subsequent encounter (4) History of frostbite Status: Chronic Current Visit: Yes Code(s): Z91.89 - Other specified personal risk factors, not elsewhere classified Comment: left long finger, right index finger, right long finger, and right ring finger (5) Skin necrosis Status: Chronic Current Visit: Yes Code(s): I96 - Gangrene, not elsewhere classified Comment: dorsum right long finger at DIP joint (6) Tobacco abuse Status: Chronic Current Visit: Yes Code(s): Z72.0 - Tobacco use (7) Raynaud disease Status: Chronic Current Visit: Yes Code(s): I73.00 - Raynaud's syndrome without gangrene Type of Wound Date of Service: 03/17/20 Chief Complaint: Recent frostbite right long finger with nonhealing necrotic ulcer. History of Wound: 59-year-old man with a history of diabetes who is presently being seen for a left diabetic foot ulcer has some skin necrosis on the dorsum right long finger at the DIP joint. He sustained frostbite back on October 03, 2019 involving his left long finger, right index finger, right long finger, and right ring finger. He was seen at [facility]. After careful observation to look for areas of demarcation, all the fingers survived with the exception of some skin necrosis on the right long finger. He became concerned recently because of increased pain and drainage from the eschar. Patient is right hand dominant. A wound culture from 01/07/20 was positive for Staphylococcus aureas. He was placed on Doxycycline. Additional wound culture from 02/20/20 was positive for Staphylococcus aureus. He was placed on Levaquin. Wound care to right long finger is moistened Tegan covered by gauze and using coband to hold in place. Today denies any fevers. Patient states he has a good appetite. X-ray from 01/28/20 showed Vascular calcification. 3 tiny bony densities overlying the distal interphalangeal joint of the third digit along the dorsal aspect. Progress of Wound: No improvement - Physical Exam Vital Signs Temp Pulse Resp BP Pulse Ox 97.5 F L 74 16 133/56 H 100 03/17/20 09:19 03/17/20 09:19 03/17/20 09:19 03/17/20 09:19 03/17/20 00:25 General: Alert, Oriented x3, Cooperative HEENT: Atraumatic Oral: Moist Mucosa Lungs: Normal air movement Cardiovascular: Regular rate Extremities: Edema - Right long finger Skin: Ulcer/ Wound - Right long finger dorsal aspect ulcer. Wound Measurements and Assessment WC - Nurse 1 - General Ulcer Measurement Start: 03/17/20 09:19 Freq: Status: Active Protocol: Activity Type Activity Date Activity User E-Sign Co-Sign Detail Recorded Client Recorded Date Recorded By Document 03/17/20 09:19 MW [id number] 03/17/20 09:24 MW 03/17/20 09:19 Wound Center Nurse 1 [Ulcer Assessment] #13 R 2nd finger -Combined with other wound No -Current Size (cm) - Length 0.5 -Current Size (cm) - Width 0.7 -Current Size (cm) - Depth 0.3 -Total Square Cm 0.35 -Photo Taken No -Epithelialization None Present -Tunneling No -Undermining/Tunneling No -Circular Undermining No -Exudate Amt Small -Exudate Type Sanguineous -Wound Margin Flat & Intact -Granulation Amt Small (1-33%) -Granulation Quality Red -Slough/Fibrin Yes -Necrosis Amt Medium (34-66%) -Necrotic Tissue Type Adherent Slough -Structure Exposed N/A -Texture (Mechelle-wound Skin Appearance) Assessed, Localized Edema -Color (Mechelle-wound Skin Appearance) Assessed, Erythema,Rubor -Temperature (Mechelle-wound Skin No Abnormality Appearance) (Pt Warm) -Tenderness on Palpation (Mechelle-wound Yes Skin Appearance) -Ulcer Cleansing Rinsed/ Irrigated with Saline -Foul Odor after Cleansing No -Anesthetic Used 5% Lidocaine Gel [Edema Assessment] -Lower Limb Edema Present No WC - Nurse 2 - General Ulcer CM Notes Start: 03/17/20 09:19 Freq: Status: Active Protocol: Activity Type Activity Date Activity User E-Sign Co-Sign Detail Recorded Client Recorded Date Recorded By Document 03/17/20 11:19 PL [id number] 03/17/20 11:20 PL 03/17/20 11:19 Wound Center Nurse 2 [Procedure/Treatment] #13 R 2nd finger -Time 09:31 -Correct Patient Yes -Correct Side, Site, Position Yes -Correct Procedure Yes -Procedure Performed Yes -Type of Procedure Debridement -Clinical Debridement Subcutaneous -Post Debridement Size (cm) - Length 0.8 -Post Debridement Size (cm) - Width 1.0 -Post Debridement Size (cm) - Depth 0.5 -Total Square Cm 0.80 -Wound/Ulcer Outcome Not Healed -Ulcer Cleansing Rinsed/ Irrigated with Saline -Foul Odor after Cleansing No -Bleeding Controlled with Pressure -Treatment Response Procedure Tolerated Well [See Physician Procedure note for Specifics] Pain Scale: 0-10 Numeric [Pain] -Is Patient Pain Free? Yes Musculoskeletal: Tenderness - Right long finger tenderness Neurological: Neuro grossly intact Psych/Mental Status: Normal Affect, Appropriate Debridement Note Post-Debridement Measurements/Treatment WC - Nurse 2 - General Ulcer CM Notes Start: 03/17/20 09:19 Freq: Status: Active Protocol: Activity Type Activity Date Activity User E-Sign Co-Sign Detail Recorded Client Recorded Date Recorded By Document 03/17/20 11:19 [id number] 03/17/20 11:20 PL 03/17/20 11:19 Wound Center Nurse 2 #13 R 2nd finger -Time 09:31 -Correct Patient Yes -Correct Side, Site, Position Yes -Correct Procedure Yes -Procedure Performed Yes -Type of Procedure Debridement -Clinical Debridement Subcutaneous -Post Debridement Size (cm) - Length 0.8 -Post Debridement Size (cm) - Width 1.0 -Post Debridement Size (cm) - Depth 0.5 -Total Square Cm 0.80 -Wound/Ulcer Outcome Not Healed -Ulcer Cleansing Rinsed/ Irrigated with Saline -Foul Odor after Cleansing No -Bleeding Controlled with Pressure -Treatment Response Procedure Tolerated Well Pain Scale: 0-10 Numeric Is Patient Pain Free? Yes Wound debrided: Long finger ulcer dorsal aspect Laterality: Right Type of Debridement: Excisional debridement Anesthesia Used: 5% Lidocaine Gel Depth: Down to and including healthy tissue, in the subcutaneous layer Percentage of wound debrided: 100 Instrument Used: 3mm curette Tissue Removed: Subcutaneous tissue and slough Severity: Fat Layer Exposed Amount of bleeding with debridement: Moderate Bleeding Controlled with: Pressure Patient tolerated procedure well Assessment/Plan Active Problems (Last Updated 01/09/20 @ 13:[address] Lio Bishop MD) Type 2 diabetes mellitus with diabetic polyneuropathy (Chronic) History of frostbite (Chronic) left long finger, right index finger, right long finger, and right ring finger Skin necrosis (Chronic) dorsum right long finger at DIP joint Tobacco abuse (Chronic) Raynaud disease (Chronic) Delayed wound healing (Chronic) Skin ulcer of finger with fat layer exposed (Chronic) necrotic ulcer dorsum right long finger at DIP joint Assessment: 1. Nonhealing necrotic ulcer dorsum right long finger at DIP joint. 2. Diabetes mellitus. 3. History of recent frostbite. 4. Raynaud's disease. 5. Peripheral vascular disease. 6. Smoker. Plan: Continue Aquacel-Ag dressing changes daily. X-ray from 01/28/20 showed Vascular calcification. 3 tiny bony densities overlying the distal interphalangeal joint of the third digit along the dorsal aspect. There was no evidence of osteomyelitis. If those bony densities cause pain in the future, they may need to be excised. Will monitor. Encourage range of motion exercises to minimize stiffness. He phoned into the wound center last Tuesday with concerns about increasing redness, swelling and pain of right long finger. Started him on Doxycycline with the instructions that if the redness does not start improving or if the symptoms worsen he needs to go to the ED over the weekend. He verbalized understanding. A wound culture from 01/07/20 was positive for Staphylococcus aureas. He was placed on Doxycycline. Repeat culture from 02/20/20 showed Staphylococcus aureus. He was placed on Levaquin. His HgbA1c from 08/23/19 was 6.1. His last Prealbumin from 03/04/17 was 24.1. Encourage nutritional supplementation with protein to help the healing process. He has just finished HBO for a left diabetic foot ulcer which should help to heal his right long finger wound. If healing is delayed, he would need operative debridement with skin flap or skin graft reconstruction. With his history of Raynaud's and peripheral vascular disease and smoking, he is at increased risk of developing wound healing problems and possible osteomyelitis that would lead to an eventual amputation. He voices understanding. He's also at risk for amputation because he gets chemicals on his finger through his cotton gloves at work. He states he doesn't have time to wash his hands often while at work. Encouraged the patient to stop smoking as it may have deleterious effects on wound healing. Followup 1 week. [id number]: [id number] Lelia subq tissue 20 sq cm/<
[2020-03-19 11:26] VITALS: BP 138/85; PULSE 79; RESP 20; TEMP 37; BMI 28.7
--- NOTE | 2020-03-19 13:30 | PCM.WC.PN ---
(1) Ulcer of left foot with fat layer exposed Status: Acute Code(s): L97.522 - Non-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ulcer of other part of left foot with fat layer exposed (2) Type 2 diabetes mellitus with diabetic polyneuropathy Status: Chronic Code(s): E11.42 - Type 2 diabetes mellitus with diabetic polyneuropathy (3) Hammertoe of left foot Status: Chronic Code(s): M20.42 - Other hammer toe(s) (acquired), left foot (4) Malnutrition Status: Chronic Code(s): E46 - Unspecified protein-calorie malnutrition (5) Type 2 diabetes mellitus with diabetic polyneuropathy Status: Chronic Qualifiers: Code(s): E11.42 - Type 2 diabetes mellitus with diabetic polyneuropathy (6) Chronic ulcer of left foot with necrosis of muscle Status: Chronic Code(s): L97.523 - Non-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ulcer of other part of left foot with necrosis of muscle Type of Wound Date of Service: 03/19/20 Chief Complaint: left ulcer returned History of Wound: This 59-year-old male returns to the wound healing center today for a left foot ulcer. The onset was within the past week. 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 He denies fever, chill, nausea, vomiting. He denies redness or odor. Progress of Wound: returned foot ulcer - Physical Exam Vital Signs Temp Pulse Resp BP Pulse Ox 98.6 F 79 20 H 138/85 H 100 03/19/20 11:26 03/19/20 11:26 03/19/20 11:26 03/19/20 11:26 03/17/20 00:25 General: Alert, Oriented x3, Cooperative, No apparent distress HEENT: Atraumatic Extremities: No cyanosis, Capillary Refill Less than 3 Seconds, No Calf Tenderness, Diminished Peripheral Pulses, Edema - mild Skin: Ulcer/ Wound - no purulence, no erythema, no streaking , no odor, no infection. ulcer returned Wound Measurements and Assessment WC - Nurse 1 - General Ulcer Measurement Start: 03/17/20 09:19 Freq: Status: Active Protocol: Activity Type Activity Date Activity User E-Sign Co-Sign Detail Recorded Client Recorded Date Recorded By Document 03/17/20 09:19 MW [id number] 03/17/20 09:24 MW Document 03/19/20 11:26 DL [id number] 03/19/20 11:33 DL 03/17/20 03/19/20 09:19 11:26 Wound Center Nurse 1 [Ulcer Assessment] #15 L Foot Plantar -Current Size (cm) - Length 2.1 -Current Size (cm) - Width 1 -Current Size (cm) - Depth 0.2 -Total Square Cm 2.1 -Photo Taken Yes #13 R 2nd finger -Combined with other wound No -Current Size (cm) - Length 0.5 -Current Size (cm) - Width 0.7 -Current Size (cm) - Depth 0.3 -Total Square Cm 0.35 -Photo Taken No -Epithelialization None Present -Tunneling No -Undermining/Tunneling No -Circular Undermining No -Exudate Amt Small -Exudate Type Sanguineous -Wound Margin Flat & Intact -Granulation Amt Small (1-33%) -Granulation Quality Red -Slough/Fibrin Yes -Necrosis Amt Medium (34-66%) -Necrotic Tissue Type Adherent Slough -Structure Exposed N/A -Texture (Mechelle-wound Skin Appearance) Assessed, Localized Edema -Color (Mechelle-wound Skin Appearance) Assessed, Erythema,Rubor -Temperature (Mechelle-wound Skin No Abnormality Appearance) (Pt Warm) -Tenderness on Palpation (Mechelle-wound Yes Skin Appearance) -Ulcer Cleansing Rinsed/ Irrigated with Saline -Foul Odor after Cleansing No -Anesthetic Used 5% Lidocaine Gel [Edema Assessment] -Lower Limb Edema Present No WC - Nurse 2 - General Ulcer CM Notes Start: 03/17/20 09:19 Freq: Status: Active Protocol: Activity Type Activity Date Activity User E-Sign Co-Sign Detail Recorded Client Recorded Date Recorded By Document 03/17/20 11:19 PL [id number] 03/17/20 11:20 PL Document 03/19/20 13:05 PL [id number] 03/19/20 13:06 PL 03/17/20 03/19/20 11:19 13:05 Wound Center Nurse 2 [Procedure/Treatment] #15 L Foot Plantar -Time 11:40 -Correct Patient Yes -Correct Side, Site, Position Yes -Correct Procedure Yes -Procedure Performed Yes -Type of Procedure Debridement -Clinical Debridement Subcutaneous -Post Debridement Size (cm) - Length 2.1 -Post Debridement Size (cm) - Width 1.0 -Post Debridement Size (cm) - Depth 0.2 -Total Square Cm 2.10 -Wound/Ulcer Outcome Not Healed -Ulcer Cleansing Rinsed/ Irrigated with Saline -Foul Odor after Cleansing No -Bleeding Controlled with Pressure -Treatment Response Procedure Tolerated Well #13 R 2nd finger -Time 09:31 -Correct Patient Yes -Correct Side, Site, Position Yes -Correct Procedure Yes -Procedure Performed Yes -Type of Procedure Debridement -Clinical Debridement Subcutaneous -Post Debridement Size (cm) - Length 0.8 -Post Debridement Size (cm) - Width 1.0 -Post Debridement Size (cm) - Depth 0.5 -Total Square Cm 0.80 -Wound/Ulcer Outcome Not Healed -Ulcer Cleansing Rinsed/ Irrigated with Saline -Foul Odor after Cleansing No -Bleeding Controlled with Pressure -Treatment Response Procedure Tolerated Well [See Physician Procedure note for Specifics] Pain Scale: 0-10 Numeric [Pain] -Is Patient Pain Free? Yes Musculoskeletal: No Tenderness to Palpation of Joints or Extremities, Muscle Wasting, - - dorsal contrction of lesser digits with prominent metatarsal heads Neurological: - - lack of epicritic sensation via light touch consistent with neuropathy Psych/Mental Status: Normal Affect, Appropriate Debridement Note Post-Debridement Measurements/Treatment WC - Nurse 2 - General Ulcer CM Notes Start: 03/17/20 09:19 Freq: Status: Active Protocol: Activity Type Activity Date Activity User E-Sign Co-Sign Detail Recorded Client Recorded Date Recorded By Document 03/17/20 11:19 PL [id number] 03/17/20 11:20 PL Document 03/19/20 13:05 PL [id number] 03/19/20 13:06 PL 03/17/20 03/19/20 11:19 13:05 Wound Center Nurse 2 #15 L Foot Plantar -Time 11:40 -Correct Patient Yes -Correct Side, Site, Position Yes -Correct Procedure Yes -Procedure Performed Yes -Type of Procedure Debridement -Clinical Debridement Subcutaneous -Post Debridement Size (cm) - Length 2.1 -Post Debridement Size (cm) - Width 1.0 -Post Debridement Size (cm) - Depth 0.2 -Total Square Cm 2.10 -Wound/Ulcer Outcome Not Healed -Ulcer Cleansing Rinsed/ Irrigated with Saline -Foul Odor after Cleansing No -Bleeding Controlled with Pressure -Treatment Response Procedure Tolerated Well #13 R 2nd finger -Time 09:31 -Correct Patient Yes -Correct Side, Site, Position Yes -Correct Procedure Yes -Procedure Performed Yes -Type of Procedure Debridement -Clinical Debridement Subcutaneous -Post Debridement Size (cm) - Length 0.8 -Post Debridement Size (cm) - Width 1.0 -Post Debridement Size (cm) - Depth 0.5 -Total Square Cm 0.80 -Wound/Ulcer Outcome Not Healed -Ulcer Cleansing Rinsed/ Irrigated with Saline -Foul Odor after Cleansing No -Bleeding Controlled with Pressure -Treatment Response Procedure Tolerated Well Pain Scale: 0-10 Numeric Is Patient Pain Free? Yes Wound debrided: plantar lateral foot Laterality: Left Wound Grade/Stage: grade 1 (recurrent from grade 3) Type of Debridement: Excisional debridement Anesthesia Used: 5% Lidocaine Gel Depth: in the subcutaneous layer Percentage of wound debrided: 100 Instrument Used: #15 blade Tissue Removed: fibrous, devitalized subcutaneous, biofilm, slough Severity: Fat Layer Exposed Amount of bleeding with debridement: Mild Bleeding Controlled with: Pressure Patient tolerated procedure well Assessment/Plan Assessment: Left foot ulcer with capsule/muscle tissue exposed (returned today). Left foot deformities including tailor bunion and hammertoe. right foot ulcer with fat layer exposed (healed today). Peripheral vascular disease. Diabetes with polyneuropathy. Malnutrition. Delayed healing. Raynaud's disease. Finger ulcer management by additional wound care center provider(s) Plan: I reviewed and discussed his case today. Debridement was performed today as noted in the clinical panel. Tegan was applied. I recommend continue offloading with a total contact cast. He is amendable to proceed with this next week and not today. To continue proper glycemic control nutritional supplementation optimize healing. I recommend updating his labs and his white blood cell count was 7.9 and his hemoglobin A1c was 6.5%. His wound was also recently cultured and it grew diplococcus aureus and anaerobic foci. He was placed on an antibiotic and that has been completed. He is previously known to vascular specialist and I am concerned because his ulcer site has had significant delays in healing and is now recurrent. He also struggles to stay off his foot and is a very active [place]. He was advised to follow-up with his vascular surgeon, Dr. Pena as scheduled. He had recent updated vascular studies performed and Dr. Pena is considering additional intervention. I recommend proceeding if there are options available. He has done well with his course of hyperbaric oxygen therapy. I will see if he qualifies for additional hyperbaric oxygen due to the recent recurrence of his prior grade 3 ulcer. I will also see if he is still qualifying for advanced product application such as epi-fix. Improved offloading was discussed also he is amendable to proceed with a total contact cast only. To return to the wound healing center in 1 week or call sooner if he has any questions or concerns. To continue to follow-up with his other wound care center provider in regards to his finger management.
--- NOTE | 2020-03-24 08:23 | PCM.HBO.PN ---
History of Present Illness Date of Service: 03/24/20 Presenting Chief Complaint: left ulcer returned RICK GEORGE Jr. is a 59 year old currently undergoing hyperbaric oxygen therapy for eft plantar Rousseau grade 3 diabetic foot ulcer. Progress: Today represents 38th hyperbaric oxygen treatment of 40 planned treatments. Tolerance of hyperbaric oxygen therapy: Hyperbaric oxygen treatment was provided as per the facility's protocol at 2.0 VINNY and 100% oxygen for 90 minutes. The patient tolerated hyperbaric oxygen well, without complications or complaints. Upon emergence of the hyperbaric chamber the patient's vital signs remained stable. The patient did have bilateral tympanostomy tubes placed on 12/20/2019. Pre-and post blood glucose levels as documented in nursing notes. Past Medical History Chronic Problems (Last Updated 01/09/20 @ 13:[address] 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) Allergies/Adverse Reactions: Allergies atorvastatin Adverse Reaction (Verified 08/23/19 12:36) Unknown metformin Adverse Reaction (Verified 08/23/19 12:36) Diarrhea Home Medications: Ambulatory Orders Medication Instructions Recorded Ammonium Lactate [Amlactin] 57 gm TP PRN PRN 10/04/17 Celecoxib [Celebrex] 200 mg PO DAILY 10/04/17 Cholecalciferol (Vitamin D3) 5,000 unit PO DAILY 10/04/17 [Vitamin D3] Levomefolate/B6/B12/Algal Oil 1 ea PO DAILY 10/04/17 [Metanx Capsule] Nortriptyline HCl 50 mg PO QHS 10/04/17 Biotin 1 mg PO DAILY 04/01/18 Desonide 0.05% [Desowen 0.05% 1 applic TOPICAL BID 04/01/18 Cream] Diflorasone Diacetate [Psorcon] 1 applicatio TP BID PRN 04/01/18 Insulin Glargine,Hum.rec.anlog 20 unit SQ QHS 04/01/18 [Basaglar Kwikpen U-100] Insulin Lispro [Humalog KwikPen] See Protocol SQ TIDCM 04/01/18 Ketoconazole [Nizoral] 1 applic TOPICAL DAILY PRN 04/01/18 Magnesium 250 mg PO DAILY 04/01/18 metoprolol tartrate 25 mg tablet 12.5 mg PO BID tab MDD 1.5 tabs 07/19/18 albuterol sulfate 90 mcg/actuation 2 puff INHALATION Q4H PRN g 08/13/19 aerosol inhaler amlodipine 10 mg tablet 10 mg PO DAILY 08/13/19 becaplermin 0.01 % topical gel 1 applic TOPICAL DAILY 08/13/19 cetirizine 10 mg tablet 10 mg PO DAILY 08/13/19 gabapentin 300 mg capsule 900 mg PO TID cap 08/13/19 nifedipine 30 mg tablet,extended 30 mg PO DAILY 08/13/19 release simvastatin 10 mg tablet 10 mg PO QHS 08/13/19 vardenafil 20 mg tablet 20 mg PO DAILY PRN 08/13/19 Cyanocobalamin [Vitamin B12] 1,000 mcg IM Q30D 08/22/19 aspirin 81 mg tablet,delayed 162 mg PO DAILY tab MDD . 12/27/19 release baclofen 20 mg tablet 30 mg PO TID tab 10/12/19 cephalexin 500 mg capsule 500 mg PO Q6H cap 10/12/19 famotidine 20 mg tablet 20 mg PO DAILY PRN 10/12/19 furosemide 20 mg tablet 20 mg PO BID PRN tab 10/12/19 lisinopril 5 mg tablet 5 mg PO QDAY #30 tab 01/28/20 doxycycline monohydrate 100 mg 100 mg PO BID #30 cap 03/14/20 capsule Maternal Family History: Family History (Last Reviewed 10/18/19 @ 11:24 by Linda Leon) Other Arthritis Hypertension Family History: Diabetes Paternal Family History: Family History (Last Reviewed 10/18/19 @ 11:24 by Linda Leon) Other Arthritis Hypertension Family History: Diabetes Smoking Status: Current every day smoker Physical Exam Vital Signs Temp Pulse Resp BP Pulse Ox 98.6 F 79 20 H 138/85 H 100 03/19/20 11:26 03/19/20 11:26 03/19/20 11:26 03/19/20 11:26 03/17/20 00:25 General: Alert, Oriented x3, Cooperative, No apparent distress HEENT: Atraumatic, TM's Clear Lungs: Clear to auscultation, Normal air movement Cardiovascular: Regular rate, Regular Rhythm Psych/Mental Status: Normal Affect, Appropriate, Alert and oriented to time, place, person, mood and affect Assessment/Plan The patient tolerated the Hyperbaric oxygen treatment well, which will be continued as per his medical plan.
[2020-03-24 08:47] VITALS: BP 142/87; BP 146/82; PULSE 79; PULSE 81; RESP 16; RESP 18; TEMP 36.2; TEMP 36.6
[2020-03-24 10:16] VITALS: BP 146/82; PULSE 79; RESP 16; TEMP 36.6; BMI 28.7
[2020-03-24 10:36] LABS: Bedside Glucose 159 mg/dL (70-110)
--- NOTE | 2020-03-24 13:29 | PN.PCM_ITS ---
(1) Skin ulcer of finger with fat layer exposed Status: Chronic Current Visit: Yes Code(s): L98.492 - Non-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ulcer of skin of other sites with fat layer exposed Comment: necrotic ulcer dorsum right long finger at DIP joint (2) Type 2 diabetes mellitus with diabetic polyneuropathy Status: Chronic Current Visit: Yes Code(s): E11.42 - Type 2 diabetes mellitus with diabetic polyneuropathy (3) Delayed wound healing Status: Chronic Current Visit: Yes Code(s): T14.8XXD - Other injury of unspecified body region, subsequent encounter (4) History of frostbite Status: Chronic Current Visit: Yes Code(s): Z91.89 - Other specified personal risk factors, not elsewhere classified Comment: left long finger, right index finger, right long finger, and right ring finger (5) Tobacco abuse Status: Chronic Current Visit: No Code(s): Z72.0 - Tobacco use (6) Raynaud disease Status: Chronic Current Visit: No Code(s): I73.00 - Raynaud's syndrome without gangrene Type of Wound Date of Service: 03/24/20 Chief Complaint: Frostbite right long finger with nonhealing necrotic ulcer. History of Wound: 59-year-old man with a history of diabetes who is presently being seen for a left diabetic foot ulcer has some skin necrosis on the dorsum right long finger at the DIP joint. He sustained frostbite back on October 03, 2019 involving his left long finger, right index finger, right long finger, and right ring finger. He was seen at [facility]. After careful observation to look for areas of demarcation, all the fingers survived with the exception of some skin necrosis on the right long finger. He became concerned recently because of increased pain and drainage from the eschar. Patient is right hand dominant. A wound culture from 01/07/20 was positive for Staphylococcus aureas. He was placed on Doxycycline. Additional wound culture from 02/20/20 was positive for Staphylococcus aureus. He was placed on Levaquin. Wound care to right long finger is silver dressing covered by gauze and using coband to hold in place. Today denies any fevers. Patient states he has a good appetite. X-ray from 01/28/20 showed Vascular calcification. 3 tiny bony densities overlying the distal interphalangeal joint of the third digit along the dorsal aspect. Progress of Wound: Stable - Physical Exam Vital Signs Temp Pulse Resp BP Pulse Ox 97.8 F 79 16 146/82 H 100 03/24/20 10:16 03/24/20 10:16 03/24/20 10:16 03/24/20 10:16 03/17/20 00:25 General: Alert, Oriented x3, Cooperative HEENT: Atraumatic Oral: Moist Mucosa Lungs: Normal air movement Cardiovascular: Regular rate Extremities: Capillary Refill Less than 3 Seconds, Edema - right long finger with mild swelling Skin: Ulcer/ Wound - right long finger dorsal aspect ulcer Wound Measurements and Assessment WC - Nurse 1 - General Ulcer Measurement Start: 03/17/20 09:19 Freq: Status: Active Protocol: Activity Type Activity Date Activity User E-Sign Co-Sign Detail Recorded Client Recorded Date Recorded By Document 03/24/20 10:16 DELL [id number] 03/24/20 10:20 DL 03/24/20 10:16 Wound Center Nurse 1 [Ulcer Assessment] #13 R 2nd finger -Current Size (cm) - Length 0.2 -Current Size (cm) - Width 0.2 -Current Size (cm) - Depth 0.2 -Total Square Cm 0.04 -Photo Taken No -Exudate Amt Small -Exudate Type Yellow/Green -Wound Margin Distinct, Outline Attached -Granulation Amt Small (1-33%) -Granulation Quality [place] -Necrosis Amt Small (1-33%) -Necrotic Tissue Type Adherent Slough -Structure Exposed Bone -Texture ([place]-wound Skin Appearance) Localized Edema ,Scarring -Moisture ([place]le-wound Skin Appearance Dry/Scaly ) -Color ([place]le-wound Skin Appearance) Erythema,Rubor -Temperature ([place]le-wound Skin No Abnormality Appearance) (Pt Warm) -Tenderness on Palpation ([place]le-wound No Skin Appearance) -Ulcer Cleansing Wound Cleanser -Foul Odor after Cleansing No -Anesthetic Used 4% Lidocaine Solution - Nurse 2 - General Ulcer CM Notes Start: 03/17/20 09:19 Freq: Status: Active Protocol: Activity Type Activity Date Activity User E-Sign Co-Sign Detail Recorded Client Recorded Date Recorded By Document 03/24/20 10:45 MARJORIE [id number] 03/24/20 10:46 MARJORIE 03/24/20 10:45 Wound Center Nurse 2 [Procedure/Treatment] -Time 10:46 -Correct Patient Yes -Correct Side, Site, Position Yes -Correct Procedure Yes -Procedure Performed Yes -Type of Procedure Debridement -Clinical Debridement Subcutaneous -Post Debridement Size (cm) - Length 0.3 -Post Debridement Size (cm) - Width 0.4 -Post Debridement Size (cm) - Depth 0.6 -Total Square Cm 0.12 -Wound/Ulcer Outcome Not Healed -Ulcer Cleansing Rinsed/ Irrigated with Saline -Foul Odor after Cleansing No -Bioengineered Tissue No -Bleeding Controlled with Pressure -Offloading No -Treatment Response Procedure Tolerated Well [See Physician Procedure note for Specifics] Pain Scale: 0-10 Numeric [Pain] -Is Patient Pain Free? Yes Musculoskeletal: No Tenderness to Palpation of Joints or Extremities Neurological: Neuro grossly intact Psych/Mental Status: Normal Affect, Appropriate Debridement Note Post-Debridement Measurements/Treatment WC - Nurse 2 - General Ulcer CM Notes Start: 03/17/20 09:19 Freq: Status: Active Protocol: Activity Type Activity Date Activity User E-Sign Co-Sign Detail Recorded Client Recorded Date Recorded By Document 03/17/20 11:19 [id number] 03/17/20 11:20 PL Document 03/19/20 13:05 [id number] 03/19/20 13:06 Document 03/24/20 10:45 [id number] 03/24/20 10:46 03/17/20 03/19/20 03/24/20 11:19 13:05 10:45 Wound Center Nurse 2 #11 L Foot Plantar -Time 11:40 -Correct Patient Yes -Correct Side, Site, Position Yes -Correct Procedure Yes -Procedure Performed Yes -Type of Procedure Debridement -Clinical Debridement Subcutaneous -Post Debridement Size (cm) - Length 2.1 -Post Debridement Size (cm) - Width 1.0 -Post Debridement Size (cm) - Depth 0.2 -Total Square Cm 2.10 -Wound/Ulcer Outcome Not Healed -Ulcer Cleansing Rinsed/ Irrigated with Saline -Foul Odor after Cleansing No -Bleeding Controlled with Pressure -Treatment Response Procedure Tolerated Well #13 R 2nd finger -Time 09:31 10:46 -Correct Patient Yes Yes -Correct Side, Site, Position Yes Yes -Correct Procedure Yes Yes -Procedure Performed Yes Yes -Type of Procedure Debridement Debridement -Clinical Debridement Subcutaneous Subcutaneous -Post Debridement Size (cm) - Length 0.8 0.3 -Post Debridement Size (cm) - Width 1.0 0.4 -Post Debridement Size (cm) - Depth 0.5 0.6 -Total Square Cm 0.80 0.12 -Wound/Ulcer Outcome Not Healed Not Healed -Ulcer Cleansing Rinsed/ Rinsed/ Irrigated with Irrigated with Saline Saline -Foul Odor after Cleansing No No -Bioengineered Tissue No -Bleeding Controlled with Pressure Pressure -Offloading No -Treatment Response Procedure Procedure Tolerated Well Tolerated Well Pain Scale: 0-10 Numeric Is Patient Pain Free? Yes Yes Wound debrided: long finger ulcer Laterality: Right Type of Debridement: Excisional debridement Anesthesia Used: 5% Lidocaine Gel Depth: Down to and including healthy tissue, in the subcutaneous layer Percentage of wound debrided: 100 Instrument Used: 3mm curette Tissue Removed: Subcutaneous tissue and slough Severity: Fat Layer Exposed Amount of bleeding with debridement: Mild Bleeding Controlled with: Pressure Patient tolerated procedure well Assessment/Plan Active Problems (Last Updated 01/09/20 @ 13:[address] Lio Bishop MD) Type 2 diabetes mellitus with diabetic polyneuropathy (Chronic) Finger infection (Acute) History of frostbite (Chronic) left long finger, right index finger, right long finger, and right ring finger Delayed wound healing (Chronic) Skin ulcer of finger with fat layer exposed (Chronic) necrotic ulcer dorsum right long finger at DIP joint Assessment: 1. Nonhealing necrotic ulcer dorsum right long finger at DIP joint. 2. Diabetes mellitus. 3. History of recent frostbite. 4. Raynaud's disease. 5. Peripheral vascular disease. 6. Smoker. Plan: Continue Silver dressing changes daily. X-ray from 01/28/20 showed Vascular calcification. 3 tiny bony densities overlying the distal i nterphalangeal joint of the third digit along the dorsal aspect. There was no evidence of osteomyelitis. If those bony densities cause pain in the future, they may need to be excised. Will monitor. Encourage range of motion exercises to minimize stiffness. A wound culture from 01/07/20 was positive for Staphylococcus aureas. He was placed on Doxycycline, which he will continue. Repeat culture from 02/20/20 showed Staphylococcus aureus. He was placed on Levaquin. His HgbA1c from 08/23/19 was 6.1. His last Prealbumin from 03/04/17 was 24.1. Encourage nutritional supplementation with protein to help the healing process. He has just finished HBO for a left diabetic foot ulcer which should help to heal his right long finger wound. If healing is delayed, he would need operative debridement with skin flap or skin graft reconstruction. With his history of Raynaud's and peripheral vascular disease and smoking, he is at increased risk of developing wound healing problems and possible osteomyelitis that would lead to an eventual amputation. He voices understanding. He's also at risk for amputation because he gets chemicals on his finger through his cotton gloves at work. He states he doesn't have time to wash his hands often while at work. Encouraged the patient to stop smoking as it may have deleterious effects on wound healing. Followup 1 week. He is also seeing another provider for his foot ulcer and he has restarted HBOT. [id number]: [id number] Lelia subq tissue 20 sq cm/<
[2020-03-26 10:56] VITALS: BP 132/80; PULSE 77; RESP 18; TEMP 36.2; BMI 28.7
[2020-03-26 13:26] LABS: Bedside Glucose 182 mg/dL (70-110)
--- NOTE | 2020-03-26 14:41 | PCM.WC.PN ---
(1) Ulcer of left foot with fat layer exposed Status: Acute Code(s): L97.522 - Non-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ulcer of other part of left foot with fat layer exposed (2) Type 2 diabetes mellitus with diabetic polyneuropathy Status: Chronic Code(s): E11.42 - Type 2 diabetes mellitus with diabetic polyneuropathy (3) Hammertoe of left foot Status: Chronic Code(s): M20.42 - Other hammer toe(s) (acquired), left foot (4) Malnutrition Status: Chronic Code(s): E46 - Unspecified protein-calorie malnutrition (5) Type 2 diabetes mellitus with diabetic polyneuropathy Status: Chronic Qualifiers: Code(s): E11.42 - Type 2 diabetes mellitus with diabetic polyneuropathy (6) Chronic ulcer of left foot with necrosis of muscle Status: Chronic Code(s): L97.523 - Non-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ulcer of other part of left foot with necrosis of muscle Type of Wound Date of Service: 03/26/20 Chief Complaint: Left foot ulcer History of Wound: This 59-year-old male returns to the wound healing center today for a left foot ulcer. He denies fever, chill, nausea, vomiting. He denies redness or odor. 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 He also has a finger infection today and his providers being contacted. He is lethargic and was sleeping upon entry to the exam room. Progress of Wound: Stable - Physical Exam Vital Signs Temp Pulse Resp BP Pulse Ox 97.2 F L 77 18 132/80 H 100 03/26/20 10:56 03/26/20 10:56 03/26/20 10:56 03/26/20 10:56 03/17/20 00:25 General: Alert, Oriented x3, Cooperative HEENT: Atraumatic Extremities: No cyanosis, No edema - Left foot, No Calf Tenderness, Diminished Peripheral Pulses Skin: Ulcer/ Wound - No purulence, erythema, streaking, odor, infection to the foot. The ulcer base is granular. The adjacent skin is hairless and atrophic Wound Measurements and Assessment WC - Nurse 1 - General Ulcer Measurement Start: 03/17/20 09:19 Freq: Status: Active Protocol: Activity Type Activity Date Activity User E-Sign Co-Sign Detail Recorded Client Recorded Date Recorded By Document 03/24/20 10:16 DL [id number] 03/24/20 10:20 DL Document 03/26/20 10:56 DV [id number] 03/26/20 10:59 DV 03/24/20 03/26/20 10:16 10:56 Wound Center Nurse 1 [Ulcer Assessment] #11 L Foot Plantar -Combined with other wound No -Current Size (cm) - Length 1.5 -Current Size (cm) - Width 1.7 -Current Size (cm) - Depth 0.2 -Total Square Cm 2.55 -Photo Taken No -Epithelialization None Present -Tunneling No -Undermining/Tunneling No -Circular Undermining No -Classification - Thickness Full Thickness without Exposed Support Structure -Exudate Amt Medium -Exudate Type Serosanguineous -Wound Margin Flat & Intact -Granulation Amt None Present (0 %) -Granulation Quality N/A -Slough/Fibrin Yes -Necrosis Amt Medium (34-66%) -Necrotic Tissue Type Adherent Slough -Structure Exposed None/Limited to Skin Breakdown -Texture (Mechelle-wound Skin Appearance) Assessed, Localized Edema -Moisture ([place]helle-wound Skin Appearance Assessed, ) Weeping -Color ([place]helle-wound Skin Appearance) No Abnormality, Assessed -Temperature ([place]helle-wound Skin No Abnormality Appearance) (Pt Warm) -Tenderness on Palpation ([place]echelle-wound No Skin Appearance) -Foul Odor after Cleansing No -Anesthetic Used 5% Lidocaine Gel #13 R 2nd finger -Current Size (cm) - Length 0.2 -Current Size (cm) - Width 0.2 -Current Size (cm) - Depth 0.2 -Total Square Cm 0.04 -Photo Taken No -Exudate Amt Small -Exudate Type Yellow/Green -Wound Margin Distinct, Outline Attached -Granulation Amt Small (1-33%) -Granulation Quality [place] -Necrosis Amt Small (1-33%) -Necrotic Tissue Type Adherent Slough -Structure Exposed Bone -Texture (Mechelle-wound Skin Appearance) Localized Edema ,Scarring -Moisture ([place]helle-wound Skin Appearance Dry/Scaly ) -Color ([place]helle-wound Skin Appearance) Erythema,Rubor -Temperature (Mechelle-wound Skin No Abnormality Appearance) (Pt Warm) -Tenderness on Palpation (Mechelle-wound No Skin Appearance) -Ulcer Cleansing Wound Cleanser -Foul Odor after Cleansing No -Anesthetic Used 4% Lidocaine Solution WC - Nurse 2 - General Ulcer CM Notes Start: 03/17/20 09:19 Freq: Status: Active Protocol: Activity Type Activity Date Activity User E-Sign Co-Sign Detail Recorded Client Recorded Date Recorded By Document 03/24/20 10:45 [id number] 03/24/20 10:46 Document 03/26/20 11:33 [id number] 03/26/20 11:34 03/24/20 03/26/20 10:45 11:33 Wound Center Nurse 2 [Procedure/Treatment] #11 L Foot Plantar -Time 11:33 -Correct Patient Yes -Correct Side, Site, Position Yes -Correct Procedure Yes -Procedure Performed Yes -Type of Procedure Debridement -Clinical Debridement Subcutaneous -Post Debridement Size (cm) - Length 1.6 -Post Debridement Size (cm) - Width 1.8 -Post Debridement Size (cm) - Depth 0.3 -Total Square Cm 2.88 -Wound/Ulcer Outcome Not Healed -Ulcer Cleansing Rinsed/ Irrigated with Saline -Foul Odor after Cleansing No -Bioengineered Tissue No -Bleeding Controlled with Pressure -Offloading No -Type of Offloading Camwalker -Treatment Response Procedure Tolerated Well #13 R 2nd finger -Time 10:46 -Correct Patient Yes -Correct Side, Site, Position Yes -Correct Procedure Yes -Procedure Performed Yes -Type of Procedure Debridement -Clinical Debridement Subcutaneous -Post Debridement Size (cm) - Length 0.3 -Post Debridement Size (cm) - Width 0.4 -Post Debridement Size (cm) - Depth 0.6 -Total Square Cm 0.12 -Wound/Ulcer Outcome Not Healed -Ulcer Cleansing Rinsed/ Irrigated with Saline -Foul Odor after Cleansing No -Bioengineered Tissue No -Bleeding Controlled with Pressure -Offloading No -Treatment Response Procedure Tolerated Well [See Physician Procedure note for Specifics] Pain Scale: 0-10 Numeric [Pain] -Is Patient Pain Free? Yes Yes Musculoskeletal: No Tenderness to Palpation of Joints or Extremities, Muscle Wasting Neurological: - - Lack of epicritic sensation light touch is consistent with neuropathy status Psych/Mental Status: Normal Affect, Appropriate Debridement Note Post-Debridement Measurements/Treatment WC - Nurse 2 - General Ulcer CM Notes Start: 03/17/20 09:19 Freq: Status: Active Protocol: Activity Type Activity Date Activity User E-Sign Co-Sign Detail Recorded Client Recorded Date Recorded By Document 03/17/20 11:19 PL [id number] 03/17/20 11:20 PL Document 03/19/20 13:05 PL [id number] 03/19/20 13:06 PL Document 03/24/20 10:45 JF [id number] 03/24/20 10:46 JF Document 03/26/20 11:33 JF [id number] 03/26/20 11:34 JF 03/17/20 03/19/20 03/24/20 11:19 13:05 10:45 Wound Center Nurse 2 #11 L Foot Plantar -Time 11:40 -Correct Patient Yes -Correct Side, Site, Position Yes -Correct Procedure Yes -Procedure Performed Yes -Type of Procedure Debridement -Clinical Debridement Subcutaneous -Post Debridement Size (cm) - Length 2.1 -Post Debridement Size (cm) - Width 1.0 -Post Debridement Size (cm) - Depth 0.2 -Total Square Cm 2.10 -Wound/Ulcer Outcome Not Healed -Ulcer Cleansing Rinsed/ Irrigated with Saline -Foul Odor after Cleansing No -Bioengineered Tissue -Bleeding Controlled with Pressure -Offloading -Type of Offloading -Treatment Response Procedure Tolerated Well #13 R 2nd finger -Time 09:31 10:46 -Correct Patient Yes Yes -Correct Side, Site, Position Yes Yes -Correct Procedure Yes Yes -Procedure Performed Yes Yes -Type of Procedure Debridement Debridement -Clinical Debridement Subcutaneous Subcutaneous -Post Debridement Size (cm) - Length 0.8 0.3 -Post Debridement Size (cm) - Width 1.0 0.4 -Post Debridement Size (cm) - Depth 0.5 0.6 -Total Square Cm 0.80 0.12 -Wound/Ulcer Outcome Not Healed Not Healed -Ulcer Cleansing Rinsed/ Rinsed/ Irrigated with Irrigated with Saline Saline -Foul Odor after Cleansing No No -Bioengineered Tissue No -Bleeding Controlled with Pressure Pressure -Offloading No -Treatment Response Procedure Procedure Tolerated Well Tolerated Well Pain Scale: 0-10 Numeric Is Patient Pain Free? Yes Yes 03/26/20 11:33 Wound Center Nurse 2 #11 L Foot Plantar -Time 11:33 -Correct Patient Yes -Correct Side, Site, Position Yes -Correct Procedure Yes -Procedure Performed Yes -Type of Procedure Debridement -Clinical Debridement Subcutaneous -Post Debridement Size (cm) - Length 1.6 -Post Debridement Size (cm) - Width 1.8 -Post Debridement Size (cm) - Depth 0.3 -Total Square Cm 2.88 -Wound/Ulcer Outcome Not Healed -Ulcer Cleansing Rinsed/ Irrigated with Saline -Foul Odor after Cleansing No -Bioengineered Tissue No -Bleeding Controlled with Pressure -Offloading No -Type of Offloading Camwalker -Treatment Response Procedure Tolerated Well #13 R 2nd finger -Time -Correct Patient -Correct Side, Site, Position -Correct Procedure -Procedure Performed -Type of Procedure -Clinical Debridement -Post Debridement Size (cm) - Length -Post Debridement Size (cm) - Width -Post Debridement Size (cm) - Depth -Total Square Cm -Wound/Ulcer Outcome -Ulcer Cleansing -Foul Odor after Cleansing -Bioengineered Tissue -Bleeding Controlled with -Offloading -Treatment Response Pain Scale: 0-10 Numeric Is Patient Pain Free? Yes Wound debrided: plantar foot Laterality: Left Wound Grade/Stage: grade 1 (recent recurrence of grade 3) Type of Debridement: Excisional debridement Anesthesia Used: 5% Lidocaine Gel Depth: in the subcutaneous layer Percentage of wound debrided: 100 Instrument Used: #15 blade Tissue Removed: fibrous, devitalized subcutaneous, biofilm, slough Severity: Fat Layer Exposed Amount of bleeding with debridement: Mild Bleeding Controlled with: Pressure Patient tolerated procedure well Assessment/Plan Active Problems (Last Reviewed 03/27/20 @ 15:[address] Pascual Fleming, DO) Finger infection (Acute) Assessment: Left foot ulcer with capsule/muscle tissue exposed (returned today). Left foot deformities including tailor bunion and hammertoe. right foot ulcer with fat layer exposed (healed today). Peripheral vascular disease. Diabetes with polyneuropathy. Malnutrition. Delayed healing. Raynaud's disease. Finger ulcer management by additional wound care center provider(s) Plan: I reviewed and discussed his case today. Debridement was performed today as noted in the clinical panel. Tegan was applied. I recommend continue offloading with a total contact cast. He is amendable to proceed with this next week and not today. To continue proper glycemic control nutritional supplementation optimize healing. I recommend updating his labs and his white blood cell count was 7.9 and his hemoglobin A1c was 6.5%. His wound was also recently cultured and it grew diplococcus aureus and anaerobic foci. He was placed on an antibiotic and that has been completed. He is previously known to vascular specialist and I am concerned because his ulcer site has had significant delays in healing and is now recurrent. He also struggles to stay off his foot and is a very active [place]. He was advised to follow-up with his vascular surgeon, Dr. Pena as scheduled. He had recent updated vascular studies performed and Dr. Pena is considering additional intervention. I recommend proceeding if there are options available. He has done well with his course of hyperbaric oxygen therapy. I will see if he qualifies for additional hyperbaric oxygen due to the recent recurrence of his prior grade 3 ulcer. I will also see if he is still qualifying for advanced product application such as epi-fix. Improved offloading was discussed also he is amendable to proceed with a total contact cast only. To return to the wound healing center in 1 week for his left foot or call sooner if he has any questions or concerns. To continue to follow-up with his other wound care center provider in regards to his finger management. It is noted that his finger appears infected today with worsening status. His provider has been contacted and he was advised to go to the emergency room at this time.
[2020-04-02 09:07] VITALS: BP 140/87; PULSE 78; RESP 18; TEMP 36.7; BMI 28.7
--- NOTE | 2020-04-02 09:36 | PCM.WC.PN ---
(1) Ulcer of left foot with fat layer exposed Status: Chronic Current Visit: Yes Code(s): L97.522 - Non-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ulcer of other part of left foot with fat layer exposed (2) Type 2 diabetes mellitus with diabetic polyneuropathy Status: Chronic Current Visit: Yes Code(s): E11.42 - Type 2 diabetes mellitus with diabetic polyneuropathy (3) Hammertoe of left foot Status: Chronic Current Visit: Yes Code(s): M20.42 - Other hammer toe(s) (acquired), left foot (4) Malnutrition Status: Chronic Current Visit: Yes Code(s): E46 - Unspecified protein-calorie malnutrition (5) Type 2 diabetes mellitus with diabetic polyneuropathy Status: Chronic Current Visit: Yes Qualifiers: Code(s): E11.42 - Type 2 diabetes mellitus with diabetic polyneuropathy Type of Wound Date of Service: 04/02/20 Chief Complaint: Left foot ulcer History of Wound: This 59-year-old male returns to the wound healing center today for a left foot ulcer. He denies fever, chill, nausea, vomiting. He denies redness or odor. 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 He also has a finger infection today and he had surgery performed last week. He relates his activity has been slightly reduced since he has been resting. 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 He does not want to resume hyperbaric oxygen therapy at this time until he reviews the application needed for his finger also with Dr. Bishop on Tuesday. Progress of Wound: Foot improving - Physical Exam Vital Signs Temp Pulse Resp BP Pulse Ox 98.0 F 78 18 140/87 H 100 04/02/20 09:07 04/02/20 09:07 04/02/20 09:07 04/02/20 09:07 03/17/20 00:25 General: Alert, Oriented x3, Cooperative, No apparent distress HEENT: Atraumatic Extremities: No cyanosis, Capillary Refill Less than 3 Seconds, No Calf Tenderness, Diminished Peripheral Pulses Skin: Ulcer/ Wound - No purulence, erythema, streaking, odor, infection. The adjacent skin is hairless and atrophic. The ulcer bed is pale and granular Wound Measurements and Assessment WC - Nurse 1 - General Ulcer Measurement Start: 03/17/20 09:19 Freq: Status: Active Protocol: Activity Type Activity Date Activity User E-Sign Co-Sign Detail Recorded Client Recorded Date Recorded By Document 04/02/20 09:07 PL [id number] 04/02/20 09:14 PL 04/02/20 09:07 Wound Center Nurse 1 [Ulcer Assessment] #11 L Foot Plantar -Combined with other wound No -Current Size (cm) - Length 1.2 -Current Size (cm) - Width 1.0 -Current Size (cm) - Depth 0.2 -Total Square Cm 1.20 -Photo Taken No -Epithelialization None Present -Tunneling No -Undermining/Tunneling No -Exudate Amt Medium -Exudate Type Serosanguineous -Granulation Amt Large (67-100%) -Granulation Quality [place] -Slough/Fibrin Yes -Necrosis Amt Small (1-33%) -Texture (Mechelle-wound Skin Appearance) Callus -Moisture (Mechelle-wound Skin Appearance No Abnormality ) -Color (M[place]helle-wound Skin Appearance) No Abnormality -Temperature ([place]-wound Skin No Abnormality Appearance) (Pt Warm) -Ulcer Cleansing Rinsed/ Irrigated with Saline -Foul Odor after Cleansing No -Anesthetic Used 4% Lidocaine Solution WC - Nurse 2 - General Ulcer CM Notes Start: 03/17/20 09:19 Freq: Status: Active Protocol: Activity Type Activity Date Activity User E-Sign Co-Sign Detail Recorded Client Recorded Date Recorded By Document 04/02/20 09:31 MARJORIE [id number] 04/02/20 09:33 04/02/20 09:31 Wound Center Nurse 2 [Procedure/Treatment] -Time 09:31 -Correct Patient Yes -Correct Side, Site, Position Yes -Correct Procedure Yes -Procedure Performed Yes -Type of Procedure Debridement -Clinical Debridement Subcutaneous -Post Debridement Size (cm) - Length 1.4 -Post Debridement Size (cm) - Width 1 -Post Debridement Size (cm) - Depth 0.2 -Total Square Cm 1.4 -Wound/Ulcer Outcome Not Healed -Ulcer Cleansing Rinsed/ Irrigated with Saline -Foul Odor after Cleansing No -Bioengineered Tissue No -Bleeding Controlled with Pressure -Offloading Yes -Type of Offloading Camwalker -Treatment Response Procedure Tolerated Well [See Physician Procedure note for Specifics] Pain Scale: 0-10 Numeric [Pain] -Is Patient Pain Free? Yes Musculoskeletal: No Tenderness to Palpation of Joints or Extremities, Muscle Wasting, - - Dorsal contracture lesser toes with prominent metatarsal head. No fluctuance, bogginess, or crepitus on palpation. Neurological: - - Lack of epicritic sensation light touch is consistent with neuropathy status Psych/Mental Status: Normal Affect, Appropriate Debridement Note Post-Debridement Measurements/Treatment WC - Nurse 2 - General Ulcer CM Notes Start: 03/17/20 09:19 Freq: Status: Active Protocol: Activity Type Activity Date Activity User E-Sign Co-Sign Detail Recorded Client Recorded Date Recorded By Document 03/17/20 11:19 PL [id number] 03/17/20 11:20 PL Document 03/19/20 13:05 PL [id number] 03/19/20 13:06 PL Document 03/24/20 10:45 JF [id number] 03/24/20 10:46 JF Document 03/26/20 11:33 JF [id number] 03/26/20 11:34 Document 04/02/20 09:31 [id number] 04/02/20 09:33 03/17/20 03/19/20 03/24/20 11:19 13:05 10:45 Wound Center Nurse 2 #11 L Foot Plantar -Time 11:40 -Correct Patient Yes -Correct Side, Site, Position Yes -Correct Procedure Yes -Procedure Performed Yes -Type of Procedure Debridement -Clinical Debridement Subcutaneous -Post Debridement Size (cm) - Length 2.1 -Post Debridement Size (cm) - Width 1.0 -Post Debridement Size (cm) - Depth 0.2 -Total Square Cm 2.10 -Wound/Ulcer Outcome Not Healed -Ulcer Cleansing Rinsed/ Irrigated with Saline -Foul Odor after Cleansing No -Bioengineered Tissue -Bleeding Controlled with Pressure -Offloading -Type of Offloading -Treatment Response Procedure Tolerated Well #13 R 2nd finger -Time 09:31 10:46 -Correct Patient Yes Yes -Correct Side, Site, Position Yes Yes -Correct Procedure Yes Yes -Procedure Performed Yes Yes -Type of Procedure Debridement Debridement -Clinical Debridement Subcutaneous Subcutaneous -Post Debridement Size (cm) - Length 0.8 0.3 -Post Debridement Size (cm) - Width 1.0 0.4 -Post Debridement Size (cm) - Depth 0.5 0.6 -Total Square Cm 0.80 0.12 -Wound/Ulcer Outcome Not Healed Not Healed -Ulcer Cleansing Rinsed/ Rinsed/ Irrigated with Irrigated with Saline Saline -Foul Odor after Cleansing No No -Bioengineered Tissue No -Bleeding Controlled with Pressure Pressure -Offloading No -Treatment Response Procedure Procedure Tolerated Well Tolerated Well Pain Scale: 0-10 Numeric Is Patient Pain Free? Yes Yes 03/26/20 04/02/20 11:33 09:31 Wound Center Nurse 2 #11 L Foot Plantar -Time 11:33 09:31 -Correct Patient Yes Yes -Correct Side, Site, Position Yes Yes -Correct Procedure Yes Yes -Procedure Performed Yes Yes -Type of Procedure Debridement Debridement -Clinical Debridement Subcutaneous Subcutaneous -Post Debridement Size (cm) - Length 1.6 1.4 -Post Debridement Size (cm) - Width 1.8 1 -Post Debridement Size (cm) - Depth 0.3 0.2 -Total Square Cm 2.88 1.4 -Wound/Ulcer Outcome Not Healed Not Healed -Ulcer Cleansing Rinsed/ Rinsed/ Irrigated with Irrigated with Saline Saline -Foul Odor after Cleansing No No -Bioengineered Tissue No No -Bleeding Controlled with Pressure Pressure -Offloading No Yes -Type of Offloading Camwalker Camwalker -Treatment Response Procedure Procedure Tolerated Well Tolerated Well #13 R 2nd finger -Time -Correct Patient -Correct Side, Site, Position -Correct Procedure -Procedure Performed -Type of Procedure -Clinical Debridement -Post Debridement Size (cm) - Length -Post Debridement Size (cm) - Width -Post Debridement Size (cm) - Depth -Total Square Cm -Wound/Ulcer Outcome -Ulcer Cleansing -Foul Odor after Cleansing -Bioengineered Tissue -Bleeding Controlled with -Offloading -Treatment Response Pain Scale: 0-10 Numeric Is Patient Pain Free? Yes Yes Wound debrided: plantar metatarsal head Laterality: Left Wound Grade/Stage: grade 1 Type of Debridement: Excisional debridement Anesthesia Used: 5% Lidocaine Gel Depth: in the subcutaneous layer Percentage of wound debrided: 100 Instrument Used: #15 blade Tissue Removed: fibrous, devitalized subcutaneous, biofilm, slough Severity: Fat Layer Exposed Amount of bleeding with debridement: Mild Bleeding Controlled with: Pressure Patient tolerated procedure well Assessment/Plan Active Problems (Last Reviewed 03/27/20 @ 15:[address] Pascual Fleming, DO) Chronic ulcer of left foot with necrosis of muscle (Chronic) Type 2 diabetes mellitus with diabetic polyneuropathy (Chronic) Ulcer of left foot with fat layer exposed (Chronic) Malnutrition (Chronic) Type 2 diabetes mellitus with diabetic polyneuropathy (Chronic) Hammertoe of left foot (Chronic) Assessment: Left foot ulcer with capsule/muscle tissue exposed (returned today). Left foot deformities including tailor bunion and hammertoe. right foot ulcer with fat layer exposed (healed today). Peripheral vascular disease. Diabetes with polyneuropathy. Malnutrition. Delayed healing. Raynaud's disease. Finger ulcer management by additional wound care center provider(s) Plan: I reviewed and discussed his case today. Debridement was performed today as noted in the clinical panel. Tegan was applied. I recommend continue offloading with a total contact cast. He is amendable to proceed with this next week and not today. To continue proper glycemic control nutritional supplementation optimize healing. I recommend updating his labs and his white blood cell count was 7.9 and his hemoglobin A1c was 6.5%. His wound was also recently cultured and it grew diplococcus aureus and anaerobic foci. He was placed on an antibiotic and that has been completed. He is previously known to vascular specialist and I am concerned because his ulcer site has had significant delays in healing and is now recurrent. He was advised to follow-up with his vascular surgeon, Dr. Pena as scheduled. He had recent updated vascular studies performed and Dr. Pena is considering additional intervention. I recommend proceeding if there are options available. He has done well with his course of hyperbaric oxygen therapy. He was advised he may resume his HBO sessions. He is apprehensive and would like to speak to Dr. Bishop prior to proceeding. He is concerned that he will run out of sessions and later needed for his finger. I explained these are 2 separate diagnoses and sessions and we are having this discussion today in regards to his foot. Improved offloading was discussed also he is amendable to proceed with a total contact cast only. To return to the wound healing center in 1 week for his left foot or call sooner if he has any questions or concerns. To continue to follow-up with his other wound care center provider in regards to his finger management. It is noted he had recent PICC line placement and surgical intervention for his finger.
[2020-04-07 12:19] VITALS: BP 154/79; PULSE 75; RESP 18; TEMP 36.7; BMI 28.7
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
[2020-04-09 10:58] VITALS: BP 130/64; PULSE 83; RESP 20; TEMP 36.9; BMI 28.7
--- NOTE | 2020-04-09 13:28 | PCM.WC.PN ---
(1) Ulcer of left foot with fat layer exposed Status: Chronic Current Visit: Yes Code(s): L97.522 - Non-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ulcer of other part of left foot with fat layer exposed (2) Type 2 diabetes mellitus with diabetic polyneuropathy Status: Chronic Current Visit: Yes Code(s): E11.42 - Type 2 diabetes mellitus with diabetic polyneuropathy (3) Hammertoe of left foot Status: Chronic Current Visit: Yes Code(s): M20.42 - Other hammer toe(s) (acquired), left foot (4) Malnutrition Status: Chronic Current Visit: Yes Code(s): E46 - Unspecified protein-calorie malnutrition (5) Type 2 diabetes mellitus with diabetic polyneuropathy Status: Chronic Current Visit: Yes Qualifiers: Code(s): E11.42 - Type 2 diabetes mellitus with diabetic polyneuropathy Type of Wound Date of Service: 04/09/20 Chief Complaint: Left foot ulcer History of Wound: This 59-year-old male returns to the wound healing center today for a left foot ulcer. He denies fever, chill, nausea, vomiting. He denies redness or odor. He also has a finger infection today and he had previous surgery. Progress of Wound: Improving - Physical Exam Vital Signs Temp Pulse Resp BP Pulse Ox 98.5 F 83 20 H 130/64 H 100 04/09/20 10:58 04/09/20 10:58 04/09/20 10:58 04/09/20 10:58 03/17/20 00:25 General: Alert, Oriented x3, Cooperative, No apparent distress Extremities: No cyanosis, Capillary Refill Less than 3 Seconds, No Calf Tenderness, Diminished Peripheral Pulses, Edema Skin: Ulcer/ Wound - No purulence, erythema, string, odor, infection. Peripheral epithelialization is noted. The adjacent skin is hairless and atrophic. Wound Measurements and Assessment WC - Nurse 1 - General Ulcer Measurement Start: 03/17/20 09:19 Freq: Status: Active Protocol: Activity Type Activity Date Activity User E-Sign Co-Sign Detail Recorded Client Recorded Date Recorded By Document 04/07/20 12:19 BS [id number] 04/07/20 12:26 BS Document 04/09/20 10:58 DL [id number] 04/09/20 11:08 DL 06/22/20 06/24/20 12:19 10:58 Wound Center Nurse 1 [Ulcer Assessment] #11 L Foot Plantar -Current Size (cm) - Length 0.8 -Current Size (cm) - Width 0.8 -Current Size (cm) - Depth 0.2 -Total Square Cm 0.64 -Photo Taken No -Exudate Amt Small -Exudate Type Serosanguineous -Wound Margin Thickened -Granulation Amt Large (67-100%) -Granulation Quality Pale,[place] -Necrosis Amt Small (1-33%) -Necrotic Tissue Type Adherent Slough -Structure Exposed N/A -Texture ([place]-wound Skin Appearance) Callus,Scarring -Moisture ([place]-wound Skin Appearance Dry/Scaly ) -Color ([place]-wound Skin Appearance) No Abnormality -Temperature ([place]-wound Skin No Abnormality Appearance) (Pt Warm) -Tenderness on Palpation ([place]-wound No Skin Appearance) -Ulcer Cleansing Wound Cleanser -Foul Odor after Cleansing No -Anesthetic Used 4% Lidocaine Solution #13 R 2nd finger -Combined with other wound No -Current Size (cm) - Length 0.8 -Current Size (cm) - Width 1.2 -Current Size (cm) - Depth 0.3 -Total Square Cm 0.96 -Photo Taken No -Moisture ([place]-wound Skin Appearance No Abnormality, ) Assessed -Color ([place]le-wound Skin Appearance) No Abnormality, Assessed -Temperature ([place]-wound Skin No Abnormality Appearance) (Pt Warm) -Tenderness on Palpation ([place]-wound Yes Skin Appearance) -Ulcer Cleansing Rinsed/ Irrigated with Saline -Foul Odor after Cleansing No -Anesthetic Used 4% Lidocaine Solution WC - Nurse 2 - General Ulcer CM Notes Start: 03/17/20 09:19 Freq: Status: Active Protocol: Activity Type Activity Date Activity User E-Sign Co-Sign Detail Recorded Client Recorded Date Recorded By Document 04/07/20 12:54 [id number] 04/07/20 12:56 Document 04/09/20 11:18 [id number] 04/09/20 11:20 04/07/20 04/09/20 12:54 11:18 Wound Center Nurse 2 [Procedure/Treatment] #11 L Foot Plantar -Time 11:19 -Correct Patient Yes -Correct Side, Site, Position Yes -Correct Procedure Yes -Procedure Performed Yes -Type of Procedure Debridement -Clinical Debridement Subcutaneous -Post Debridement Size (cm) - Length 0.9 -Post Debridement Size (cm) - Width 1.0 -Post Debridement Size (cm) - Depth 0.2 -Total Square Cm 0.90 -Wound/Ulcer Outcome Not Healed -Ulcer Cleansing Rinsed/ Irrigated with Saline -Foul Odor after Cleansing No -Bioengineered Tissue No -Bleeding Controlled with Pressure -Offloading Yes -Type of Offloading Camwalker -Treatment Response Procedure Tolerated Well #13 R 2nd finger -Time 12:54 -Correct Patient Yes -Correct Side, Site, Position Yes -Correct Procedure Yes -Procedure Performed Yes -Type of Procedure Debridement -Clinical Debridement Muscle -Post Debridement Size (cm) - Length 0.7 -Post Debridement Size (cm) - Width 1.5 -Post Debridement Size (cm) - Depth 0.5 -Total Square Cm 1.05 -Wound/Ulcer Outcome Not Healed -Ulcer Cleansing Rinsed/ Irrigated with Saline -Foul Odor after Cleansing No -Bioengineered Tissue No -Bleeding Controlled with Pressure -Offloading No -Treatment Response Procedure Tolerated Well [See Physician Procedure note for Specifics] Pain Scale: 0-10 Numeric [Pain] -Is Patient Pain Free? Yes Yes Musculoskeletal: No Tenderness to Palpation of Joints or Extremities, Muscle Wasting, - - Prominent metatarsal head with dorsal contraction of lesser toes Neurological: - - Lack of epicritic sensation light touch is consistent with neuropathy status Psych/Mental Status: Normal Affect, Appropriate Debridement Note Post-Debridement Measurements/Treatment WC - Nurse 2 - General Ulcer CM Notes Start: 03/17/20 09:19 Freq: Status: Active Protocol: Activity Type Activity Date Activity User E-Sign Co-Sign Detail Recorded Client Recorded Date Recorded By Document 03/17/20 11:19 PL [id number] 03/17/20 11:20 PL Document 03/19/20 13:05 PL [id number] 03/19/20 13:06 PL Document 03/24/20 10:45 JF [id number] 03/24/20 10:46 JF Document 03/26/20 11:33 JF [id number] 03/26/20 11:34 JF Document 04/02/20 09:31 JF [id number] 04/02/20 09:33 Document 04/07/20 12:54 [id number] 04/07/20 12:56 Document 04/09/20 11:18 [id number] 04/09/20 11:20 03/17/20 03/19/20 03/24/20 11:19 13:05 10:45 Wound Center Nurse 2 #11 L Foot Plantar -Time 11:40 -Correct Patient Yes -Correct Side, Site, Position Yes -Correct Procedure Yes -Procedure Performed Yes -Type of Procedure Debridement -Clinical Debridement Subcutaneous -Post Debridement Size (cm) - Length 2.1 -Post Debridement Size (cm) - Width 1.0 -Post Debridement Size (cm) - Depth 0.2 -Total Square Cm 2.10 -Wound/Ulcer Outcome Not Healed -Ulcer Cleansing Rinsed/ Irrigated with Saline -Foul Odor after Cleansing No -Bioengineered Tissue -Bleeding Controlled with Pressure -Offloading -Type of Offloading -Treatment Response Procedure Tolerated Well #13 R 2nd finger -Time 09:31 10:46 -Correct Patient Yes Yes -Correct Side, Site, Position Yes Yes -Correct Procedure Yes Yes -Procedure Performed Yes Yes -Type of Procedure Debridement Debridement -Clinical Debridement Subcutaneous Subcutaneous -Post Debridement Size (cm) - Length 0.8 0.3 -Post Debridement Size (cm) - Width 1.0 0.4 -Post Debridement Size (cm) - Depth 0.5 0.6 -Total Square Cm 0.80 0.12 -Wound/Ulcer Outcome Not Healed Not Healed -Ulcer Cleansing Rinsed/ Rinsed/ Irrigated with Irrigated with Saline Saline -Foul Odor after Cleansing No No -Bioengineered Tissue No -Bleeding Controlled with Pressure Pressure -Offloading No -Treatment Response Procedure Procedure Tolerated Well Tolerated Well Pain Scale: 0-10 Numeric Is Patient Pain Free? Yes Yes 03/26/20 04/02/20 04/07/20 11:33 09:31 12:54 Wound Center Nurse 2 #11 L Foot Plantar -Time 11:33 09:31 -Correct Patient Yes Yes -Correct Side, Site, Position Yes Yes -Correct Procedure Yes Yes -Procedure Performed Yes Yes -Type of Procedure Debridement Debridement -Clinical Debridement Subcutaneous Subcutaneous -Post Debridement Size (cm) - Length 1.6 1.4 -Post Debridement Size (cm) - Width 1.8 1 -Post Debridement Size (cm) - Depth 0.3 0.2 -Total Square Cm 2.88 1.4 -Wound/Ulcer Outcome Not Healed Not Healed -Ulcer Cleansing Rinsed/ Rinsed/ Irrigated with Irrigated with Saline Saline -Foul Odor after Cleansing No No -Bioengineered Tissue No No -Bleeding Controlled with Pressure Pressure -Offloading No Yes -Type of Offloading Camwalker Camwalker -Treatment Response Procedure Procedure Tolerated Well Tolerated Well #13 R 2nd finger -Time 12:54 -Correct Patient Yes -Correct Side, Site, Position Yes -Correct Procedure Yes -Procedure Performed Yes -Type of Procedure Debridement -Clinical Debridement Muscle -Post Debridement Size (cm) - Length 0.7 -Post Debridement Size (cm) - Width 1.5 -Post Debridement Size (cm) - Depth 0.5 -Total Square Cm 1.05 -Wound/Ulcer Outcome Not Healed -Ulcer Cleansing Rinsed/ Irrigated with Saline -Foul Odor after Cleansing No -Bioengineered Tissue No -Bleeding Controlled with Pressure -Offloading No -Treatment Response Procedure Tolerated Well Pain Scale: 0-10 Numeric Is Patient Pain Free? Yes Yes Yes 04/09/20 11:18 Wound Center Nurse 2 #11 L Foot Plantar -Time 11:19 -Correct Patient Yes -Correct Side, Site, Position Yes -Correct Procedure Yes -Procedure Performed Yes -Type of Procedure Debridement -Clinical Debridement Subcutaneous -Post Debridement Size (cm) - Length 0.9 -Post Debridement Size (cm) - Width 1.0 -Post Debridement Size (cm) - Depth 0.2 -Total Square Cm 0.90 -Wound/Ulcer Outcome Not Healed -Ulcer Cleansing Rinsed/ Irrigated with Saline -Foul Odor after Cleansing No -Bioengineered Tissue No -Bleeding Controlled with Pressure -Offloading Yes -Type of Offloading Camwalker -Treatment Response Procedure Tolerated Well #13 R 2nd finger -Time -Correct Patient -Correct Side, Site, Position -Correct Procedure -Procedure Performed -Type of Procedure -Clinical Debridement -Post Debridement Size (cm) - Length -Post Debridement Size (cm) - Width -Post Debridement Size (cm) - Depth -Total Square Cm -Wound/Ulcer Outcome -Ulcer Cleansing -Foul Odor after Cleansing -Bioengineered Tissue -Bleeding Controlled with -Offloading -Treatment Response Pain Scale: 0-10 Numeric Is Patient Pain Free? Yes Wound debrided: plantar lateral foot Laterality: Left Wound Grade/Stage: grade 1 (returned grade 3) Type of Debridement: Excisional debridement Anesthesia Used: 5% Lidocaine Gel Depth: in the subcutaneous layer Percentage of wound debrided: 100 Instrument Used: #15 blade Tissue Removed: fibrous, devitalized subcutaneous, biofilm, slough Severity: Fat Layer Exposed Amount of bleeding with debridement: Mild Bleeding Controlled with: Pressure Patient tolerated procedure well Assessment/Plan Active Problems (Last Reviewed 04/09/20 @ 08:49 by Linda Leon) Chronic ulcer of left foot with necrosis of muscle (Chronic) Type 2 diabetes mellitus with diabetic polyneuropathy (Chronic) Ulcer of left foot with fat layer exposed (Chronic) Raynaud disease (Chronic) Delayed wound healing (Chronic) Malnutrition (Chronic) Skin ulcer of finger with fat layer exposed (Chronic) necrotic ulcer dorsum right long finger at DIP joint Type 2 diabetes mellitus with diabetic polyneuropathy (Chronic) Hammertoe of left foot (Chronic) Assessment: Left foot ulcer with capsule/muscle tissue exposed (returned today). Left foot deformities including tailor bunion and hammertoe. right foot ulcer with fat layer exposed (healed today). Peripheral vascular disease. Diabetes with polyneuropathy. Malnutrition. Delayed healing. Raynaud's disease. Finger ulcer management by additional wound care center provider(s) Plan: I reviewed and discussed his case today. Debridement was performed as noted in the clinical panel. Tegan was applied. I recommend continue offloading with a total contact cast if he has lack of progress in the future. To continue with cam walker at this time; he is doing well. He is amendable to proceed with this next week and not today. To continue proper glycemic control. To continue with nutritional supplementation optimize healing. I recommend updating his labs and his white blood cell count was 7.9 and his hemoglobin A1c was 6.5%. He is previously known to vascular specialist and I am concerned because his ulcer site has had significant delays in healing and is now recurrent. He was advised to follow-up with his vascular surgeon, Dr. Pena as scheduled. He had recent updated vascular studies performed and Dr. Pena is considering additional intervention. I recommend proceeding if there are options available. He has done well with his course of hyperbaric oxygen therapy. He was advised he may resume his HBO sessions and he is working on this with his other wound care center provider for his finger. To return to the wound healing center in 1 week for his left foot or call sooner if he has any questions or concerns. To continue to follow-up with his other wound care center provider in regards to his finger management. It is noted he had recent PICC line placement and surgical intervention for his finger.
== END 2020-04-15 23:59 ==
LOC: WC 14:30
PROVIDERS: Family Provider Student in an Organized Health Care Education/Training Program; PCP Student in an Organized Health Care Education/Training Program; Referring Provider Podiatrist; Visit Provider Podiatrist
DX: E11.621 Type 2 diabetes mellitus with foot ulcer (principal); L98.492 Non-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ulcer of skin of other sites with fat layer exposed; E11.42 Type 2 diabetes mellitus with diabetic polyneuropathy; T14.8XXD Other injury of unspecified body region, subsequent encounter; Z91.89 Other specified personal risk factors, not elsewhere classified; Z72.0 Tobacco use; I73.01 Raynaud's syndrome with gangrene; E11.52 Type 2 diabetes mellitus with diabetic peripheral angiopathy with gangrene; L97.523 Non-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ulcer of other part of left foot with necrosis of muscle; M20.42 Other hammer toe(s) (acquired), left foot; M20.41 Other hammer toe(s) (acquired), right foot; E46 Unspecified protein-calorie malnutrition; L97.512 Non-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ulcer of other part of right foot with fat layer exposed
CPT/HCPCS: 11042; 11043; 80048; 82962; 85027; 85652; 99183; G0277

== ENCOUNTER 2020-04-14 14:52 | Outpatient (RCR) | payer MEDICAID, SELFPAY ==
[2020-04-14 10:38] VITALS: BMI 30.7
[2020-04-14 16:02] LABS: Hematocrit 40.8 % (40-54); Hemoglobin 12.9 g/dL (13.0-16.5); Mean Corp Hgb Conc 31.6 g/dL (32-36); Mean Corpuscular Hgb 31.6 pg (27.0-32.0); Mean Platelet Vol. 11.2 fl (6.2-12.0); Platelet Count 252 K/mm3 (150-450); RBC Distribution Width CV 13.5 % (11.6-14.6); RBC Distribution Width SD 49.2 fl (35.1-43.9); Red Blood Count 4.08 M/mm3 (4.6-6.2)
[2020-04-14 16:23] LABS: Anion Gap 6 (5-15); BUN 16 mg/dL (7-18); BUN/Creat Ratio 17.4 RATIO (10-20); Calcium,Total 9.1 mg/dL (8.5-10.1); Chloride 103 mmol/L (98-107); Creatinine, Serum 0.92 mg/dL (0.70-1.30); EST Glomerular Filtration Rate 90 mL/min (>60); Est Glom Filt Rate - Afr Amer 108 mL/min (>60); Glucose 87 mg/dL (74-106); Potassium 4.1 mmol/L (3.5-5.1); Sodium Level 139 mmol/L (136-145)
[2020-04-14 17:24] LABS: Erythrocyte Sedimentation Rate 30 mm/hr (0-20)
== END 2020-04-14 18:00 | disposition home or self-care (01) ==
LOC: HHLAB 14:52
PROVIDERS: PCP Student in an Organized Health Care Education/Training Program; Referring Provider Internal Medicine Infectious Disease; Visit Provider Internal Medicine Infectious Disease
DX: Z45.2 Encounter for adjustment and management of vascular access device (principal); E11.621 Type 2 diabetes mellitus with foot ulcer; L97.509 Non-pressure chronic ulcer of other part of unspecified foot with unspecified severity
CPT/HCPCS: 80048; 85027; 85652

== ENCOUNTER 2020-05-05 11:56 | Outpatient (RCR) | payer MEDICAID, SELFPAY ==
[2020-04-16 15:45] VITALS: BMI 30.7
[2020-04-21 15:34] LABS: Hematocrit 42.5 % (40-54); Hemoglobin 13.6 g/dL (13.0-16.5); Mean Corpuscular Hgb 32.5 pg (27.0-32.0); Mean Corpuscular Volume 101.4 fL (80-94); Platelet Count 242 K/mm3 (150-450); RBC Distribution Width CV 13.2 % (11.6-14.6); RBC Distribution Width SD 49.1 fl (35.1-43.9); Red Blood Count 4.19 M/mm3 (4.6-6.2); White Blood Count 6.1 K/mm3 (4.4-11.0)
[2020-04-21 15:44] LABS: Erythrocyte Sedimentation Rate 24 mm/hr (0-20)
[2020-04-21 15:47] LABS: Anion Gap 7 (5-15); BUN 19 mg/dL (7-18); BUN/Creat Ratio 21.5 RATIO (10-20); Calcium,Total 8.6 mg/dL (8.5-10.1); Chloride 103 mmol/L (98-107); Creatinine, Serum 0.88 mg/dL (0.70-1.30); EST Glomerular Filtration Rate 94 mL/min (>60); Est Glom Filt Rate - Afr Amer 113 mL/min (>60); Glucose 195 mg/dL (74-106); Potassium 4.1 mmol/L (3.5-5.1); Sodium Level 138 mmol/L (136-145)
[2020-04-28 13:50] LABS: Erythrocyte Sedimentation Rate 17 mm/hr (0-20); Hematocrit 41.4 % (40-54); Hemoglobin 13.2 g/dL (13.0-16.5); Mean Corp Hgb Conc 31.9 g/dL (32-36); Mean Corpuscular Hgb 31.9 pg (27.0-32.0); Mean Platelet Vol. 11.1 fl (6.2-12.0); Platelet Count 206 K/mm3 (150-450); RBC Distribution Width CV 13.1 % (11.6-14.6); Red Blood Count 4.14 M/mm3 (4.6-6.2); White Blood Count 5.9 K/mm3 (4.4-11.0)
[2020-04-28 13:56] LABS: Anion Gap 8 (5-15); BUN 18 mg/dL (7-18); BUN/Creat Ratio 18.8 RATIO (10-20); Calcium,Total 8.7 mg/dL (8.5-10.1); Chloride 101 mmol/L (98-107); Creatinine, Serum 0.96 mg/dL (0.70-1.30); EST Glomerular Filtration Rate 85 mL/min (>60); Est Glom Filt Rate - Afr Amer 103 mL/min (>60); Glucose 219 mg/dL (74-106); Sodium Level 138 mmol/L (136-145)
[2020-05-05 14:14] LABS: Erythrocyte Sedimentation Rate 11 mm/hr (0-20)
[2020-05-05 14:23] LABS: Anion Gap 3 (5-15); BUN 14 mg/dL (7-18); BUN/Creat Ratio 15.1 RATIO (10-20); Calcium,Total 8.7 mg/dL (8.5-10.1); Chloride 103 mmol/L (98-107); Creatinine, Serum 0.93 mg/dL (0.70-1.30); EST Glomerular Filtration Rate 89 mL/min (>60); Est Glom Filt Rate - Afr Amer 108 mL/min (>60); Glucose 199 mg/dL (74-106); Potassium 4.3 mmol/L (3.5-5.1); Sodium Level 139 mmol/L (136-145)
[2020-05-05 15:22] LABS: Hematocrit 40.2 % (40-54); Mean Corp Hgb Conc 32.3 g/dL (32-36); Mean Corpuscular Hgb 32.4 pg (27.0-32.0); Mean Corpuscular Volume 100.2 fL (80-94); Mean Platelet Vol. 11.1 fl (6.2-12.0); Platelet Count 193 K/mm3 (150-450); RBC Distribution Width CV 13.2 % (11.6-14.6); RBC Distribution Width SD 48.4 fl (35.1-43.9); Red Blood Count 4.01 M/mm3 (4.6-6.2); White Blood Count 5.6 K/mm3 (4.4-11.0)
== END 2020-05-05 18:00 | disposition home or self-care (01) ==
LOC: HHLAB 11:56
PROVIDERS: PCP Student in an Organized Health Care Education/Training Program; Referring Provider Internal Medicine Infectious Disease; Visit Provider Internal Medicine Infectious Disease
DX: M86.9 Osteomyelitis, unspecified (principal); B95.61 Methicillin susceptible Staphylococcus aureus infection as the cause of diseases classified elsewhere
CPT/HCPCS: 36415; 80048; 85027; 85652

== ENCOUNTER → 2020-05-07 12:27 | Outpatient (CLI) | payer MEDICAID, SELFPAY ==
[2020-05-07 10:53] VITALS: BMI 30.7
--- NOTE | 2020-05-07 12:34 | RAD_ITS ---
STUDY: X-RAY CHEST REASON FOR EXAM: Male, 60 years old. EVALUATE PICC LINE PLACEMENT TECHNIQUE: PA and lateral views of the chest. COMPARISON: 11/21/2019 FINDINGS: Right-sided PICC line has been placed, tip is in the proximal SVC. The lungs are clear and expanded. There is no demonstrated pleural abnormality. Sternal cerclage wires and vascular clips are present from a prior sternotomy and coronary artery bypass graft procedure (CABG). Normal mediastinum and kaci. Normal visualized pulmonary arteries. Normal visualized aortic arch and descending thoracic aorta. Normal visualized thoracic spine. Normal visualized ribs, clavicles, and shoulders. There is no demonstrated abnormality of the visualized soft tissue structures of the upper abdomen. RAD/Chest PA and Lateral IMPRESSION: No acute pulmonary process Right-sided PICC line tip in the proximal SVC Electronically Signed: Sadiq Arango MD at 12:47 EDT , Service support ,
== END ==
PROVIDERS: PCP Student in an Organized Health Care Education/Training Program; Referring Provider Nurse Practitioner Family; Visit Provider Nurse Practitioner Family
DX: R07.89 Other chest pain (principal); Z95.828 Presence of other vascular implants and grafts
CPT/HCPCS: 71046

== ENCOUNTER 2020-05-12 11:30 | Outpatient (RCR) | payer MEDICAID, SELFPAY ==
[2020-04-16 00:25] VITALS: BP 130/64; PULSE 83; RESP 20; TEMP 36.9; O2SAT 100
--- NOTE | 2020-04-16 14:18 | PCM.HBO.PN ---
History of Present Illness Date of Service: 04/16/20 Presenting Chief Complaint: Left foot ulcer RICK GEORGE Jr. is a 60 year old currently undergoing hyperbaric oxygen therapy for left plantar Rousseau grade 3 diabetic foot ulcer. Progress: Today represents 39th hyperbaric oxygen treatment of 40 planned treatments. Tolerance of hyperbaric oxygen therapy: Hyperbaric oxygen treatment was provided as per the facility's protocol at 2.0 VINNY and 100% oxygen for 90 minutes. The patient tolerated hyperbaric oxygen well, without complications or complaints. Upon emergence of the hyperbaric chamber the patient's vital signs remained stable. The patient did have bilateral tympanostomy tubes placed on 12/20/2019. Pre-and post blood glucose levels as documented in nursing notes. 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) Chronic ulcer of great toe of left foot with fat layer exposed (Chronic) Type 2 diabetes mellitus with diabetic polyneuropathy (Chronic) Ulcer of left foot with fat layer exposed (Chronic) Hammertoe of right foot (Chronic) History of frostbite (Chronic) left long finger, right index finger, right long finger, and right ring finger Skin necrosis (Chronic) dorsum right long finger at DIP joint Tobacco abuse (Chronic) Raynaud disease (Chronic) Tinea unguium (Chronic) 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 grade 3 treated medically Hammertoe of right foot (Chronic) Delayed wound healing (Chronic) Malnutrition (Chronic) Peripheral vascular disease (Chronic) Type 2 diabetes mellitus with diabetic polyneuropathy (Chronic) Atherosclerotic heart disease of [place] coronary artery without angina pectoris (Chronic) Old myocardial infarction (Chronic) DDD (degenerative disc disease), lumbar (Chronic) with Grade I anterolisthesis of L5 on S1. H/O stroke associated with blood clotting tendency (Chronic) H/O three vessel coronary artery bypass (Chronic ~04/12/18) MACK-LAD, SVG-OM, SVG to left PDA by Dr. Zhu of [facility] Essential (primary) hypertension (Chronic) Other specified peripheral vascular diseases (Chronic) Skin ulcer of finger with fat layer exposed (Chronic) necrotic ulcer dorsum right long finger at DIP joint 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) Allergies/Adverse Reactions: Allergies atorvastatin Adverse Reaction (Verified 03/26/20 17:21) Unknown metformin Adverse Reaction (Verified 03/26/20 17:21) Diarrhea Home Medications: Ambulatory Orders Medication Instructions Recorded Ammonium Lactate [Amlactin] 57 gm TP PRN PRN 10/04/17 Celecoxib [Celebrex] 200 mg PO DAILY 10/04/17 Cholecalciferol (Vitamin D3) 5,000 unit PO DAILY 10/04/17 [Vitamin D3] Levomefolate/B6/B12/Algal Oil 1 ea PO DAILY 10/04/17 [Metanx Capsule] Nortriptyline HCl 50 mg PO QHS 10/04/17 Biotin 1 mg PO DAILY 04/01/18 Desonide 0.05% [Desowen 0.05% 1 applic TOPICAL BID PRN 04/01/18 Cream] Diflorasone Diacetate [Psorcon] 1 applicatio TP BID PRN 04/01/18 Insulin Glargine,Hum.rec.anlog 20 unit SQ DAILY 04/01/18 [Basaglar Kwikpen U-100] Insulin Lispro [Humalog KwikPen] See Protocol SQ TIDCM 04/01/18 Ketoconazole [Nizoral Cream] 1 applic TOPICAL DAILY PRN 04/01/18 Magnesium 250 mg PO DAILY 04/01/18 metoprolol tartrate 25 mg tablet 12.5 mg PO BID tab MDD 1.5 tabs 07/19/18 albuterol sulfate 90 mcg/actuation 2 puff INHALATION Q4H PRN g 08/13/19 aerosol inhaler amlodipine 10 mg tablet 10 mg PO DAILY 08/13/19 becaplermin 0.01 % topical gel 1 applic TOPICAL DAILY PRN 08/13/19 cetirizine 10 mg tablet 10 mg PO DAILY 08/13/19 gabapentin 300 mg capsule 900 mg PO TID cap 08/13/19 simvastatin 10 mg tablet 10 mg PO QHS 08/13/19 vardenafil 20 mg tablet 20 mg PO DAILY PRN 08/13/19 Cyanocobalamin [Vitamin B12] 1,000 mcg IM Q30D 08/22/19 aspirin 81 mg tablet,delayed 162 mg PO DAILY tab MDD . 10/12/19 release baclofen 20 mg tablet 30 mg PO TID tab 10/12/19 famotidine 20 mg tablet 20 mg PO DAILY 10/12/19 furosemide 20 mg tablet 20 mg PO BID PRN tab 10/12/19 Lisinopril 5 mg PO QDAY 03/26/20 Cefazolin 2 gm IV Q8 40 Days #120 vial 03/31/20 Docusate Sodium [Colace] 100 mg PO BID cap 03/31/20 Gauze Bandage [Gauze Pads] 1 ea TP DAILY 30 Days #30 bandage 03/31/20 Gauze Bandage [Kerlix] 1 ea TP DAILY 30 Days #30 bandage 03/31/20 Insulin Lispro [Humalog KwikPen] See Protocol SUBCUT ACHS 03/31/20 insuln.pen Melatonin 3 mg PO QHS PRN tab 03/31/20 Silver/Hydrocolloid Dressing 1 ea TP DAILY 30 Days #5 bandage 03/31/20 [Aquacel-Ag W-Hydrofiber Dress] Maternal Family History: Family History (Last Reviewed 04/16/20 @ 09:56 by Linda Leon) Other Arthritis Hypertension Family History: Diabetes Paternal Family History: Family History (Last Reviewed 04/16/20 @ 09:56 by Linda Leon) Other Arthritis Hypertension Family History: Diabetes Smoking Status: Never smoker Physical Exam Vital Signs Temp Pulse Resp BP Pulse Ox 98.5 F 83 20 H 130/64 H 100 04/16/20 00:25 04/16/20 00:25 04/16/20 00:25 04/16/20 00:25 04/16/20 00:25 General: Alert, Oriented x3, Cooperative, No apparent distress HEENT: Atraumatic, TM's Clear Lungs: Clear to auscultation, Normal air movement Cardiovascular: Regular rate, Regular Rhythm Psych/Mental Status: Normal Affect, Appropriate, Alert and oriented to time, place, person, mood and affect Assessment/Plan Treatment Course Number Treatment Course Number 1 Treatment # 39 HBO Diagnosis/Indication Diagnosis/Indication(s) for Left Diabetic Foot Ulcer,Standard/Conservative Hyperbaric Therapy Classification - Rousseau Grade 3 Grading (Diabetic Ulcer) [] Classification - Rousseau Grade 1 Grading (Diabetic Ulcer) [] Classification - Rousseau Grade 1 Grading (Diabetic Ulcer) [] Classification - Rousseau Grade 1 Grading (Diabetic Ulcer) [] Classification - Rousseau Grade 1 Grading (Diabetic Ulcer) [] Classification - Rousseau Grade 3 Grading (Diabetic Ulcer) Diabetes - Detail Diabetes Diabetes Type II Left Extremity Ulcer, Other part of Foot Right Extremity Ulcer, Heel & Midfoot The patient tolerated the Hyperbaric oxygen treatment well, which will be continued as per his medical plan.
[2020-04-16 14:46] LABS: Bedside Glucose 163 mg/dL (70-110)
[2020-04-16 15:45] VITALS: BP 135/71; PULSE 78; TEMP 36.6; BMI 30.7
[2020-04-16 15:45] LABS: Bedside Glucose 225 mg/dL (70-110)
--- NOTE | 2020-04-16 16:45 | PN.PCM_ITS ---
(1) Type 2 diabetes mellitus with diabetic polyneuropathy Status: Chronic Current Visit: Yes Code(s): E11.42 - Type 2 diabetes mellitus with diabetic polyneuropathy (2) Ulcer of left foot with fat layer exposed Status: Chronic Current Visit: Yes Code(s): L97.522 - Non-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ulcer of other part of left foot with fat layer exposed Type of Wound Date of Service: 04/16/20 Chief Complaint: Left foot ulcer History of Wound: This 59-year-old male returns to the wound healing center today for a left foot ulcer. He denies fever, chill, nausea, vomiting. He denies redness or odor. 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 He is also seen by an additional wound care center provider for left finger wound with infection. Progress of Wound: Improving foot - Physical Exam Vital Signs Temp Pulse Resp BP Pulse Ox 97.8 F 78 20 H 135/71 H 100 04/16/20 15:45 04/16/20 15:45 04/16/20 00:25 04/16/20 15:45 04/16/20 00:25 General: Alert, Oriented x3, Cooperative, No apparent distress Extremities: No cyanosis, No edema, Capillary Refill Less than 3 Seconds, No Calf Tenderness, Diminished Peripheral Pulses Skin: Ulcer/ Wound - No purulence, erythema, streaking, odor, infection. The peripheral skin is hairless and atrophic. The ulcer bed is granular and there is peripheral epithelialization Wound Measurements and Assessment WC - Nurse 1 - General Ulcer Measurement Start: 04/16/20 15:45 Freq: Status: Active Protocol: Activity Type Activity Date Activity User E-Sign Co-Sign Detail Recorded Client Recorded Date Recorded By Document 04/16/20 15:45 MW [id number] 04/16/20 15:54 MW 04/16/20 15:45 Wound Center Nurse 1 [Ulcer Assessment] #11 L Foot Plantar -Combined with other wound No -Current Size (cm) - Length 0.8 -Current Size (cm) - Width 0.5 -Current Size (cm) - Depth 0.2 -Total Square Cm 0.40 -Photo Taken No -Epithelialization None Present -Tunneling No -Undermining/Tunneling No -Circular Undermining No -Exudate Amt Small -Exudate Type Serosanguineous -Granulation Amt Small (1-33%) -Granulation Quality [place] -Slough/Fibrin Yes -Necrosis Amt Large (67-100%) -Necrotic Tissue Type Adherent Slough -Structure Exposed N/A -Texture (Mechelle-wound Skin Appearance) Assessed, Scarring -Moisture (Mechelle-wound Skin Appearance Assessed, ) Maceration -Color (Mechelle-wound Skin Appearance) No Abnormality, Assessed -Temperature (Mechelle-wound Skin No Abnormality Appearance) (Pt Warm) -Tenderness on Palpation (Mechelle-wound Yes Skin Appearance) -Ulcer Cleansing soap and water -Foul Odor after Cleansing No -Anesthetic Used 4% Lidocaine Solution [Edema Assessment] -Lower Limb Edema Present No -Left Calf (cm) 35.0 -Left Ankle (cm) 22.2 - Nurse 2 - General Ulcer CM Notes Start: 04/16/20 15:45 Freq: Status: Active Protocol: Activity Type Activity Date Activity User E-Sign Co-Sign Detail Recorded Client Recorded Date Recorded By Document 04/16/20 16:13 MARJORIE [id number] 04/16/20 16:14 MARJORIE 04/16/20 16:13 Wound Center Nurse 2 [Procedure/Treatment] #11 L Foot Plantar -Time 16:13 -Correct Patient Yes -Correct Side, Site, Position Yes -Correct Procedure Yes -Procedure Performed Yes -Type of Procedure Debridement -Clinical Debridement Subcutaneous -Post Debridement Size (cm) - Length 1.0 -Post Debridement Size (cm) - Width 0.7 -Post Debridement Size (cm) - Depth 0.2 -Total Square Cm 0.70 -Wound/Ulcer Outcome Not Healed -Ulcer Cleansing Rinsed/ Irrigated with Saline -Foul Odor after Cleansing No -Bioengineered Tissue No -Bleeding Controlled with Pressure -Offloading Yes -Type of Offloading Camwalker -Treatment Response Procedure Tolerated Well [See Physician Procedure note for Specifics] Pain Scale: 0-10 Numeric [Pain] -Is Patient Pain Free? Yes Musculoskeletal: No Tenderness to Palpation of Joints or Extremities, - - Dorsal contracture lesser toes and prominent metatarsal head Neurological: - - Lack of epicritic sensation Psych/Mental Status: Normal Affect, Appropriate Debridement Note Post-Debridement Measurements/Treatment WC - Nurse 2 - General Ulcer CM Notes Start: 04/16/20 15:45 Freq: Status: Active Protocol: Activity Type Activity Date Activity User E-Sign Co-Sign Detail Recorded Client Recorded Date Recorded By Document 04/16/20 16:13 MARJORIE [id number] 04/16/20 16:14 MARJORIE 04/16/20 16:13 Wound Center Nurse 2 #11 L Foot Plantar -Time 16:13 -Correct Patient Yes -Correct Side, Site, Position Yes -Correct Procedure Yes -Procedure Performed Yes -Type of Procedure Debridement -Clinical Debridement Subcutaneous -Post Debridement Size (cm) - Length 1.0 -Post Debridement Size (cm) - Width 0.7 -Post Debridement Size (cm) - Depth 0.2 -Total Square Cm 0.70 -Wound/Ulcer Outcome Not Healed -Ulcer Cleansing Rinsed/ Irrigated with Saline -Foul Odor after Cleansing No -Bioengineered Tissue No -Bleeding Controlled with Pressure -Offloading Yes -Type of Offloading Camwalker -Treatment Response Procedure Tolerated Well Pain Scale: 0-10 Numeric Is Patient Pain Free? Yes Wound debrided: sub metatarsal head Laterality: Left Wound Grade/Stage: grade 1 (return of recent prior grade 3 ulcer) Type of Debridement: Excisional debridement Anesthesia Used: 5% Lidocaine Gel Depth: in the subcutaneous layer Percentage of wound debrided: 100 Instrument Used: #15 blade Tissue Removed: fibrous, devitalized subcutaneous, biofilm, slough Severity: Fat Layer Exposed Amount of bleeding with debridement: Mild Bleeding Controlled with: Pressure Patient tolerated procedure well Assessment/Plan Active Problems (Last Reviewed 04/16/20 @ 09:56 by Linda Leon) Type 2 diabetes mellitus with diabetic polyneuropathy (Chronic) Ulcer of left foot with fat layer exposed (Chronic) Assessment: Left foot ulcer with capsule/muscle tissue exposed (returned today). Left foot deformities including tailor bunion and hammertoe. Peripheral vascular disease. Diabetes with polyneuropathy. Malnutrition. Delayed healing. Raynaud's disease. Finger ulcer management by additional wound care center provider(s) Plan: I reviewed and discussed his case today. Debridement was performed as noted in the clinical panel. Tegan was applied. I recommend continue offloading with a total contact cast if he has lack of progress in the future. To continue with cam walker at this time; he is doing well. To continue proper glycemic control. To continue with nutritional supplementation optimize healing. I recommend updating his labs and his white blood cell count was 7.9 and his hemoglobin A1c was 6.5%. He is previously known to vascular specialist and I am concerned because his ulcer site has had significant delays in healing and is now recurrent. He was advised to follow-up with his vascular surgeon, Dr. Pena as scheduled. He had recent updated vascular studies performed and Dr. Pena is considering additional intervention. I recommend proceeding if there are options available. He has done well with his course of hyperbaric oxygen therapy when compliant. He is recently been unavailable to adhere to the frequency scheduled the hyperbaric oxygen therapy and he understands this will limit the anticipated benefits. Compliance was encouraged. He was advised he may resume his HBO sessions and he is working on this with his other wound care center provider for his finger. To return to the wound healing center in 1 week for his left foot or call sooner if he has any questions or concerns. To continue to follow-up with his other wound care center provider in regards to his finger management. It is noted he had recent PICC line placement and surgical intervention for his finger.
[2020-04-17 08:42] VITALS: BP 135/71; BP 148/71; PULSE 78; PULSE 99; RESP 18; TEMP 36.6; TEMP 36.7
[2020-04-21 11:51] LABS: Bedside Glucose 180 mg/dL (70-110)
[2020-04-21 12:07] VITALS: BP 104/75; BP 112/74; PULSE 76; PULSE 85; RESP 16; RESP 18; TEMP 36.4; TEMP 37.6
[2020-04-21 14:06] VITALS: BP 112/74; PULSE 76; RESP 16; TEMP 36.4; BMI 30.7
[2020-04-21 14:11] LABS: Bedside Glucose 146 mg/dL (70-110)
--- NOTE | 2020-04-21 14:41 | HBO.PN.PCM_ITS ---
History of Present Illness Date of Service: 04/21/20 Presenting Chief Complaint: Left foot ulcer RICK GEORGE Jr. is a 60 year old currently undergoing hyperbaric oxygen therapy for left plantar Rousseau grade 3 diabetic foot ulcer. Progress: Today represents 40th hyperbaric oxygen treatment of 60 planned tr eatments. Tolerance of hyperbaric oxygen therapy: Hyperbaric oxygen treatment was provided as per the facility's protocol at 2.0 VINNY and 100% oxygen for 90 minutes. The patient tolerated hyperbaric oxygen well, without complications or complaints. Upon emergence of the hyperbaric chamber the patient's vital signs remained stable. The patient did have bilateral tympanostomy tubes placed on 12/20/2019. Pre-and post blood glucose levels as documented in nursing notes. 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) Chronic ulcer of great toe of left foot with fat layer exposed (Chronic) Type 2 diabetes mellitus with diabetic polyneuropathy (Chronic) Ulcer of left foot with fat layer exposed (Chronic) Hammertoe of right foot (Chronic) History of frostbite (Chronic) left long finger, right index finger, right long finger, and right ring finger Skin necrosis (Chronic) dorsum right long finger at DIP joint Tobacco abuse (Chronic) Raynaud disease (Chronic) Tinea unguium (Chronic) 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 grade 3 treated medically Hammertoe of right foot (Chronic) Delayed wound healing (Chronic) Malnutrition (Chronic) Peripheral vascular disease (Chronic) Type 2 diabetes mellitus with diabetic polyneuropathy (Chronic) Atherosclerotic heart disease of [place] coronary artery without angina pectoris (Chronic) Old myocardial infarction (Chronic) DDD (degenerative disc disease), lumbar (Chronic) with Grade I anterolisthesis of L5 on S1. H/O stroke associated with blood clotting tendency (Chronic) H/O three vessel coronary artery bypass (Chronic ~04/12/18) MACK-LAD, SVG-OM, SVG to left PDA by Dr. Zhu of [facility] Essential (primary) hypertension (Chronic) Other specified peripheral vascular diseases (Chronic) Skin ulcer of finger with fat layer exposed (Chronic) necrotic ulcer dorsum right long finger at DIP joint 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) Allergies/Adverse Reactions: Allergies atorvastatin Adverse Reaction (Verified 03/26/20 17:21) Unknown metformin Adverse Reaction (Verified 03/26/20 17:21) Diarrhea Home Medications: Ambulatory Orders Medication Instructions Recorded Ammonium Lactate [Amlactin] 57 gm TP PRN PRN 10/04/17 Celecoxib [Celebrex] 200 mg PO DAILY 10/04/17 Cholecalciferol (Vitamin D3) 5,000 unit PO DAILY 10/04/17 [Vitamin D3] Levomefolate/B6/B12/Algal Oil 1 ea PO DAILY 10/04/17 [Metanx Capsule] Nortriptyline HCl 50 mg PO QHS 10/04/17 Biotin 1 mg PO DAILY 04/01/18 Desonide 0.05% [Desowen 0.05% 1 applic TOPICAL BID PRN 04/01/18 Cream] Diflorasone Diacetate [Psorcon] 1 applicatio TP BID PRN 04/01/18 Insulin Glargine,Hum.rec.anlog 20 unit SQ DAILY 04/01/18 [Basaglar Kwikpen U-100] Insulin Lispro [Humalog KwikPen] See Protocol SQ TIDCM 04/01/18 Ketoconazole [Nizoral Cream] 1 applic TOPICAL DAILY PRN 04/01/18 Magnesium 250 mg PO DAILY 04/01/18 metoprolol tartrate 25 mg tablet 12.5 mg PO BID tab MDD 1.5 tabs 07/19/18 albuterol sulfate 90 mcg/actuation 2 puff INHALATION Q4H PRN g 08/13/19 aerosol inhaler amlodipine 10 mg tablet 10 mg PO DAILY 08/13/19 becaplermin 0.01 % topical gel 1 applic TOPICAL DAILY PRN 08/13/19 cetirizine 10 mg tablet 10 mg PO DAILY 08/13/19 gabapentin 300 mg capsule 900 mg PO TID cap 08/13/19 simvastatin 10 mg tablet 10 mg PO QHS 08/13/19 vardenafil 20 mg tablet 20 mg PO DAILY PRN 08/13/19 Cyanocobalamin [Vitamin B12] 1,000 mcg IM Q30D 08/22/19 aspirin 81 mg tablet,delayed 162 mg PO DAILY tab MDD . 10/12/19 release baclofen 20 mg tablet 30 mg PO TID tab 10/12/19 famotidine 20 mg tablet 20 mg PO DAILY 10/12/19 furosemide 20 mg tablet 20 mg PO BID PRN tab 10/12/19 Lisinopril 5 mg PO QDAY 03/26/20 Cefazolin 2 gm IV Q8 40 Days #120 vial 03/31/20 Docusate Sodium [Colace] 100 mg PO BID cap 03/31/20 Gauze Bandage [Gauze Pads] 1 ea TP DAILY 30 Days #30 bandage 03/31/20 Gauze Bandage [Kerlix] 1 ea TP DAILY 30 Days #30 bandage 03/31/20 Insulin Lispro [Humalog KwikPen] See Protocol SUBCUT ACHS 03/31/20 insuln.pen Melatonin 3 mg PO QHS PRN tab 03/31/20 Silver/Hydrocolloid Dressing 1 ea TP DAILY 30 Days #5 bandage 03/31/20 [Aquacel-Ag W-Hydrofiber Dress] Maternal Family History: Family History (Last Reviewed 04/16/20 @ 09:56 by Linda Leon) Other Arthritis Hypertension Family History: Diabetes Paternal Family History: Family History (Last Reviewed 04/16/20 @ 09:56 by Linda Leon) Other Arthritis Hypertension Family History: Diabetes Smoking Status: Never smoker Physical Exam Vital Signs Temp Pulse Resp BP Pulse Ox 97.5 F L 76 16 112/74 100 04/21/20 14:06 04/21/20 14:06 04/21/20 14:04/21/20 14:04/16/20 00:25 General: Alert, Oriented x3, Cooperative HEENT: Atraumatic, TM's Clear - Bilateral Tubes present. Lungs: Clear to auscultation, Normal air movement Cardiovascular: Regular rate, Regular Rhythm Psych/Mental Status: Normal Affect, Appropriate Assessment/Plan Active Problems (Last Reviewed 04/16/20 @ 09:56 by Linda Leon) Type 2 diabetes mellitus with diabetic polyneuropathy (Chronic) Ulcer of left foot with fat layer exposed (Chronic) The patient tolerated the Hyperbaric oxygen treatment well, which he will continue as per his medical plan. Treatment Course Number Number of HBO Treatments 60 Ordered Treatment Course Number 1 Treatment # 40 Chamber # [id number] Chamber Type Monoplace HBO Diagnosis/Indication Diagnosis/Indication(s) for Left Diabetic Foot Ulcer Hyperbaric Therapy Classification - Rousseau Grade 3 Grading (Diabetic Ulcer) [] Classification - Rousseau Grade 1 Grading (Diabetic Ulcer) [] Classification - Rousseau Grade 1 Grading (Diabetic Ulcer) [] Classification - Rousseau Grade 1 Grading (Diabetic Ulcer) [] Classification - Rousseau Grade 1 Grading (Diabetic Ulcer) [] Classification - Rousseau Grade 3 Grading (Diabetic Ulcer) Diabetes - Detail Diabetes Diabetes Type II Diabetes Control Uncontrolled Left Extremity Ulcer, Other part of Foot Right Extremity Ulcer, Heel & Midfoot Treatment Plan VINNY (Atmospheric Absolute) 2 Number of Minutes 90 Number of Air Breaks 0 [id number]
--- NOTE | 2020-04-21 14:50 | PN.PCM_ITS ---
(1) Skin ulcer of finger with fat layer exposed Status: Chronic Current Visit: Yes Code(s): L98.492 - Non-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ulcer of skin of other sites with fat layer exposed Comment: necrotic ulcer dorsum right long finger at DIP joint (2) Finger osteomyelitis, right Status: Acute Current Visit: Yes Code(s): M86.9 - Osteomyelitis, unspecified (3) Type 2 diabetes mellitus with diabetic polyneuropathy Status: Chronic Current Visit: Yes Code(s): E11.42 - Type 2 diabetes ruben litus with diabetic polyneuropathy (4) History of frostbite Status: Chronic Current Visit: Yes Code(s): Z91.89 - Other specified personal risk factors, not elsewhere classified Comment: left long finger, right index finger, right long finger, and right ring finger Type of Wound Date of Service: 04/21/20 Chief Complaint: Frostbite right long finger with nonhealing necrotic ulcer History of Wound: 59-year-old man with a history of diabetes who is presently being seen for a left diabetic foot ulcer has some skin necrosis on the dorsum right long finger at the DIP joint. He sustained frostbite back on October 03, 2019 involving his left long finger, right index finger, right long finger, and right ring finger. He was seen at [facility]. After careful observation to look for areas of demarcation, all the fingers survived with the exception of some skin necrosis on the right long finger. He became concerned recently because of increased pain and drainage from the eschar. Patient is right hand dominant. A wound culture from 01/07/20 was positive for Staphylococcus aureas. He was placed on Doxycycline. Additional wound culture from 02/20/20 was positive for Staphylococcus aureus. He was placed on Levaquin. Wound care to right long finger is silver dressing covered by gauze and using coband to hold in place. On 03/28/20 Surgical preparation dorsal aspect right long finger at DIP joint with incision and drainage and excisional debridement nonhealing infected diabetic abscess ulcer and partial ostectomy proximal distal phalanx and distal middle phalanx for osteomyelitis. Surgical culture was positive for Staphylococcus aureus. Pathology of bone from 03/28/20 positive of acute osteomyelitis. Today denies any fevers. Patient states he has a good appetite. X-ray from 01/28/20 showed Vascular calcification. 3 tiny bony densities overlying the distal interphalangeal joint of the third digit along the dorsal aspect. Progress of Wound: Improvement of right long finger ulcer. - Physical Exam Vital Signs Temp Pulse Resp BP Pulse Ox 97.5 F L 76 16 112/74 100 04/21/20 14:06 04/21/20 14:06 04/21/20 14:06 04/21/20 14:06 04/16/20 00:25 General: Alert, Oriented x3, Cooperative HEENT: Atraumatic Oral: Moist Mucosa Lungs: Normal air movement Cardiovascular: Regular rate Extremities: Capillary Refill Less than 3 Seconds, Edema - right long finger swollen Wound Measurements and Assessment WC - Nurse 1 - General Ulcer Measurement Start: 04/16/20 15:45 Freq: Status: Active Protocol: Activity Type Activity Date Activity User E-Sign Co-Sign Detail Recorded Client Recorded Date Recorded By Document 04/21/20 14:06 MW [id number] 04/21/20 14:15 MW 04/21/20 14:06 Wound Center Nurse 1 [Ulcer Assessment] #13 R 2nd finger -Combined with other wound No -Current Size (cm) - Length 0.1 -Current Size (cm) - Width 1.3 -Current Size (cm) - Depth 0.2 -Total Square Cm 0.13 -Date of Last Picture (Recall this 04/21/20 field) -Photo Taken Yes -Epithelialization None Present -Tunneling No -Undermining/Tunneling No -Circular Undermining No -Exudate Amt Small -Exudate Type Serosanguineous -Wound Margin Flat & Intact -Granulation Amt None Present (0 %) -Granulation Quality N/A -Slough/Fibrin Yes -Necrosis Amt Large (67-100%) -Necrotic Tissue Type Adherent Slough -Structure Exposed N/A -Texture (Mechelle-wound Skin Appearance) Assessed, Localized Edema ,Scarring -Moisture (Mechelle-wound Skin Appearance Assessed,Dry/ ) Scaly -Color (Mechelle-wound Skin Appearance) Assessed -Temperature (Mechelle-wound Skin No Abnormality Appearance) (Pt Warm) -Tenderness on Palpation (Mechelle-wound Yes Skin Appearance) -Ulcer Cleansing soap and water -Foul Odor after Cleansing No -Anesthetic Used 5% Lidocaine Gel [Edema Assessment] -Lower Limb Edema Present No Musculoskeletal: Tenderness Neurological: Neuro grossly intact Psych/Mental Status: Normal Affect, Appropriate Debridement Note Post-Debridement Measurements/Treatment WC - Nurse 2 - General Ulcer CM Notes Start: 04/16/20 15:45 Freq: Status: Active Protocol: Activity Type Activity Date Activity User E-Sign Co-Sign Detail Recorded Client Recorded Date Recorded By Document 04/16/20 16:13 MARJORIE [id number] 04/16/20 16:14 MARJORIE 04/16/20 16:13 Wound Center Nurse 2 #11 L Foot Plantar -Time 16:13 -Correct Patient Yes -Correct Side, Site, Position Yes -Correct Procedure Yes -Procedure Performed Yes -Type of Procedure Debridement -Clinical Debridement Subcutaneous -Post Debridement Size (cm) - Length 1.0 -Post Debridement Size (cm) - Width 0.7 -Post Debridement Size (cm) - Depth 0.2 -Total Square Cm 0.70 -Wound/Ulcer Outcome Not Healed -Ulcer Cleansing Rinsed/ Irrigated with Saline -Foul Odor after Cleansing No -Bioengineered Tissue No -Bleeding Controlled with Pressure -Offloading Yes -Type of Offloading Camwalker -Treatment Response Procedure Tolerated Well Pain Scale: 0-10 Numeric Is Patient Pain Free? Yes Wound debrided: Long dorsal finger ulcer at DIP joint Laterality: Right Type of Debridement: Excisional debridement Anesthesia Used: 5% Lidocaine Gel Depth: Down to and including healthy tissue, in the subcutaneous layer Percentage of wound debrided: 100 Instrument Used: 3mm curette Tissue Removed: Subcutaneous tissue and slough Severity: Fat Layer Exposed Amount of bleeding with debridement: Mild Bleeding Controlled with: Pressure Patient tolerated procedure well Assessment/Plan Active Problems (Last Reviewed 04/16/20 @ 09:56 by Linda Leon) Finger osteomyelitis, right (Acute) Type 2 diabetes mellitus with diabetic polyneuropathy (Chronic) Ulcer of left foot with fat layer exposed (Chronic) History of frostbite (Chronic) left long finger, right index finger, right long finger, and right ring finger Skin ulcer of finger with fat layer exposed (Chronic) necrotic ulcer dorsum right long finger at DIP joint Assessment: 1. Nonhealing necrotic ulcer dorsum right long finger at DIP joint. 2. Diabetes mellitus. 3. History of recent frostbite. 4. Raynaud's disease. 5. Peripheral vascular disease. 6. Smoker. Plan: Wound care: Moistened Silver dressing changes daily. On 03/28/20 Surgical preparation dorsal aspect right long finger at DIP joint with incision and drainage and excisional debridement nonhealing infected diabetic abscess ulcer and partial ostectomy proximal distal phalanx and distal middle phalanx for osteomyelitis. Surgical culture was positive for Staphylococcus aureus. Pathology of bone from 03/28/20 positive of acute osteomyelitis. Dr. Abdi from [place] consulted and he has placed patient on Cefazolin IV for 6 weeks to end 05/09/20. CT from 03/26/20 showed Osseous destruction with erosive change of the third middle and distal phalanges consistent with osteomyelitis versus osteolysis X-ray from 01/28/20 showed Vascular calcification. 3 tiny bony densities overlying the distal interphalangeal joint of the third digit along the dorsal aspect. Encourage range of motion exercises to minimize stiffness. A wound culture from 01/07/20 was positive for Staphylococcus aureas. He was placed on Doxycycline, which he will continue. Repeat culture from 02/20/20 showed Staphylococcus aureus. He was placed on Levaquin. His HgbA1c from 08/23/19 was 6.1. His last Prealbumin from 03/04/17 was 24.1. Encourage nutritional supplementation with protein to help the healing process. He has just finished HBO for a left diabetic foot ulcer which should help to heal his right long finger wound. If healing is delayed, he would need operative debridement with skin flap or skin graft reconstruction. With his history of Raynaud's and peripheral vascular disease and smoking, he is at increased risk of developing wound healing problems and possible osteomyelitis that would lead to an eventual amputation. He voices understanding. He's also at risk for amputation because he gets chemicals on his finger through his cotton gloves at work. He states he doesn't have time to wash his hands often while at work. Encouraged the patient to stop smoking as it may have deleterious effects on wound healing. Followup 1 week. He is also seeing another provider for his foot ulcer and he has been instructed that he needs to restart HBOT. [id number]: [id number] Global Visit
[2020-04-22 10:36] LABS: Bedside Glucose 269 mg/dL (70-110)
[2020-04-23 07:06] LABS: Bedside Glucose 268 mg/dL (70-110)
[2020-04-23 07:06] LABS: Bedside Glucose 259 mg/dL (70-110)
[2020-04-23 14:39] VITALS: BP 122/78; PULSE 85; RESP 18; TEMP 36.4; BMI 30.7
--- NOTE | 2020-04-23 16:35 | PN.PCM_ITS ---
(1) Type 2 diabetes mellitus with diabetic polyneuropathy Status: Chronic Current Visit: Yes Code(s): E11.42 - Type 2 diabetes mellitus with diabetic polyneuropathy (2) Ulcer of left foot with fat layer exposed Status: Chronic Current Visit: Yes Code(s): L97.522 - Non-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ulcer of other part of left foot with fat layer exposed Type of Wound Date of Service: 04/23/20 Chief Complaint: Left foot ulcer History of Wound: This 60-year-old male returns to the wound healing center today for a left foot ulcer. He denies fever, chill, nausea, vomiting. He denies redness or odor. He is also seen by an additional wound care center provider for left finger wound with infection. Progress of Wound: Improvement - Physical Exam Vital Signs Temp Pulse Resp BP Pulse Ox 97.5 F L 85 18 122/78 H 100 04/23/20 14:39 04/23/20 14:39 04/23/20 14:39 04/23/20 14:39 04/16/20 00:25 General: Alert, Oriented x3, Cooperative, No apparent distress HEENT: Atraumatic Extremities: No cyanosis, No edema, Capillary Refill Less than 3 Seconds, No Calf Tenderness, Diminished Peripheral Pulses Skin: Ulcer/ Wound - No purulence, erythema, streaking, odor, infection. Peripheral epithelialization is noted. Adjacent skin is hairless and atrophic Wound Measurements and Assessment WC - Nurse 1 - General Ulcer Measurement Start: 04/16/20 15:45 Freq: Status: Active Protocol: Activity Type Activity Date Activity User E-Sign Co-Sign Detail Recorded Client Recorded Date Recorded By Document 04/21/20 14:06 MW [id number] 04/21/20 14:15 MW Document 04/23/20 14:39 BS [id number] 04/23/20 14:49 BS 04/21/20 04/23/20 14:06 14:39 Wound Center Nurse 1 [Ulcer Assessment] #11 L Foot Plantar -Combined with other wound No -Current Size (cm) - Length 0.3 -Current Size (cm) - Width 0.2 -Current Size (cm) - Depth 0.1 -Total Square Cm 0.06 -Photo Taken No -Texture ([place]le-wound Skin Appearance) Assessed, Scarring -Moisture ([place]-wound Skin Appearance Assessed,Dry/ ) Scaly -Color ([place]le-wound Skin Appearance) No Abnormality, Assessed -Temperature ([place]-wound Skin No Abnormality Appearance) (Pt Warm) -Tenderness on Palpation ([place]le-wound No Skin Appearance) -Ulcer Cleansing Soap and water -Foul Odor after Cleansing No -Anesthetic Used 4% Lidocaine Solution #13 R 2nd finger -Combined with other wound No -Current Size (cm) - Length 0.1 -Current Size (cm) - Width 1.3 -Current Size (cm) - Depth 0.2 -Total Square Cm 0.13 -Date of Last Picture (Recall this 04/21/20 field) -Photo Taken Yes -Epithelialization None Present -Tunneling No -Undermining/Tunneling No -Circular Undermining No -Exudate Amt Small -Exudate Type Serosanguineous -Wound Margin Flat & Intact -Granulation Amt None Present (0 %) -Granulation Quality N/A -Slough/Fibrin Yes -Necrosis Amt Large (67-100%) -Necrotic Tissue Type Adherent Slough -Structure Exposed N/A -Texture ([place]-wound Skin Appearance) Assessed, Localized Edema ,Scarring -Moisture ([place]-wound Skin Appearance Assessed,Dry/ ) Scaly -Color ([place]-wound Skin Appearance) Assessed -Temperature ([place]-wound Skin No Abnormality Appearance) (Pt Warm) -Tenderness on Palpation ([place]-wound Yes Skin Appearance) -Ulcer Cleansing soap and water -Foul Odor after Cleansing No -Anesthetic Used 5% Lidocaine Gel [Edema Assessment] -Lower Limb Edema Present No WC - Nurse 2 - General Ulcer CM Notes Start: 04/16/20 15:45 Freq: Status: Active Protocol: Activity Type Activity Date Activity User E-Sign Co-Sign Detail Recorded Client Recorded Date Recorded By Document 04/22/20 07:16 PL [id number] 04/22/20 07:17 PL Document 04/23/20 15:47 PL [id number] 04/23/20 15:47 PL 04/22/20 04/23/20 07:16 15:47 Wound Center Nurse 2 [Procedure/Treatment] #11 L Foot Plantar -Time 15:45 -Correct Patient Yes -Correct Side, Site, Position Yes -Correct Procedure Yes -Procedure Performed Yes -Type of Procedure Debridement -Clinical Debridement Subcutaneous -Post Debridement Size (cm) - Length 0.4 -Post Debridement Size (cm) - Width 0.3 -Post Debridement Size (cm) - Depth 0.2 -Total Square Cm 0.12 -Wound/Ulcer Outcome Not Healed -Ulcer Cleansing Rinsed/ Irrigated with Saline -Foul Odor after Cleansing No -Bleeding Controlled with Pressure -Type of Offloading Camwalker -Treatment Response Procedure Tolerated Well #13 R 2nd finger -Time 14:19 -Correct Patient Yes -Correct Side, Site, Position Yes -Correct Procedure Yes -Procedure Performed Yes -Type of Procedure Debridement -Clinical Debridement Subcutaneous -Post Debridement Size (cm) - Length 0.6 -Post Debridement Size (cm) - Width 1.5 -Post Debridement Size (cm) - Depth 0.2 -Total Square Cm 0.90 -Wound/Ulcer Outcome Not Healed -Ulcer Cleansing Rinsed/ Irrigated with Saline -Foul Odor after Cleansing No -Bleeding Controlled with Pressure -Treatment Response Procedure Tolerated Well [See Physician Procedure note for Specifics] Pain Scale: 0-10 Numeric [Pain] -Is Patient Pain Free? Yes Yes Musculoskeletal: No Tenderness to Palpation of Joints or Extremities, Muscle Wasting, - - Prominent metatarsal heads with adjacent dorsal contracture lesser toes Neurological: - - Lack of normal epicritic sensation light touch is consistent with neuropathy status Psych/Mental Status: Normal Affect, Appropriate Debridement Note Post-Debridement Measurements/Treatment WC - Nurse 2 - General Ulcer CM Notes Start: 04/16/20 15:45 Freq: Status: Active Protocol: Activity Type Activity Date Activity User E-Sign Co-Sign Detail Recorded Client Recorded Date Recorded By Document 04/16/20 16:13 [id number] 04/16/20 16:14 Document 04/22/20 07:16 PL [id number] 04/22/20 07:17 PL Document 04/23/20 15:47 PL [id number] 04/23/20 15:47 PL 04/16/20 04/22/20 04/23/20 16:13 07:16 15:47 Wound Center Nurse 2 #11 L Foot Plantar -Time 16:13 15:45 -Correct Patient Yes Yes -Correct Side, Site, Position Yes Yes -Correct Procedure Yes Yes -Procedure Performed Yes Yes -Type of Procedure Debridement Debridement -Clinical Debridement Subcutaneous Subcutaneous -Post Debridement Size (cm) - Length 1.0 0.4 -Post Debridement Size (cm) - Width 0.7 0.3 -Post Debridement Size (cm) - Depth 0.2 0.2 -Total Square Cm 0.70 0.12 -Wound/Ulcer Outcome Not Healed Not Healed -Ulcer Cleansing Rinsed/ Rinsed/ Irrigated with Irrigated with Saline Saline -Foul Odor after Cleansing No No -Bioengineered Tissue No -Bleeding Controlled with Pressure Pressure -Offloading Yes -Type of Offloading Camwalker Camwalker -Treatment Response Procedure Procedure Tolerated Well Tolerated Well #13 R 2nd finger -Time 14:19 -Correct Patient Yes -Correct Side, Site, Position Yes -Correct Procedure Yes -Procedure Performed Yes -Type of Procedure Debridement -Clinical Debridement Subcutaneous -Post Debridement Size (cm) - Length 0.6 -Post Debridement Size (cm) - Width 1.5 -Post Debridement Size (cm) - Depth 0.2 -Total Square Cm 0.90 -Wound/Ulcer Outcome Not Healed -Ulcer Cleansing Rinsed/ Irrigated with Saline -Foul Odor after Cleansing No -Bleeding Controlled with Pressure -Treatment Response Procedure Tolerated Well Pain Scale: 0-10 Numeric Is Patient Pain Free? Yes Yes Yes Wound debrided: plantar lateral foot Laterality: Left Wound Grade/Stage: prior grade 3, recurrent Type of Debridement: Excisional debridement Anesthesia Used: 5% Lidocaine Gel Depth: in the subcutaneous layer Percentage of wound debrided: 100 Instrument Used: #15 blade Tissue Removed: fibrous, devitalized subcutaneous, biofilm, slough Severity: Fat Layer Exposed Amount of bleeding with debridement: Mild Bleeding Controlled with: Pressure Patient tolerated procedure well Assessment/Plan Active Problems (Last Reviewed 04/16/20 @ 09:56 by Linda Leon) Finger osteomyelitis, right (Acute) Type 2 diabetes mellitus with diabetic polyneuropathy (Chronic) Ulcer of left foot with fat layer exposed (Chronic) History of frostbite (Chronic) left long finger, right index finger, right long finger, and right ring finger Skin ulcer of finger with fat layer exposed (Chronic) necrotic ulcer dorsum right long finger at DIP joint Assessment: Left foot ulcer with capsule/muscle tissue exposed (returned today). Left foot deformities including tailor bunion and hammertoe. Peripheral vascular disease. Diabetes with polyneuropathy. Malnutrition. Delayed healing. Raynaud's disease. Finger ulcer management by additional wound care center provider(s) Plan: I reviewed and discussed his case today. Debridement was performed as noted in the clinical panel. Tegan was applied. I recommend continue offloading with a total contact cast if he has lack of progress in the future. To continue with cam walker at this time; he is doing well. To continue proper glycemic control. To continue with nutritional supplementation optimize healing. I recommend updating his labs and his white blood cell count was 7.9 and his hemoglobin A1c was 6.5%. He is previously known to vascular specialist and I am concerned because his ulcer site has had significant delays in healing and is now recurrent. He was advised to follow-up with his vascular surgeon, Dr. Pena as scheduled. He had recent updated vascular studies performed and Dr. Pena is considering additional intervention. I recommend proceeding if there are options available. He has done well with his course of hyperbaric o xygen therapy when compliant. He is recently been unavailable to adhere to the frequency scheduled the hyperbaric oxygen therapy and he understands this will limit the anticipated benefits. Compliance was encouraged. He was advised he may resume his HBO sessions and he is working on this with his other wound care center provider for his finger. To return to the wound healing center in 1 week for his left foot or call sooner if he has any questions or concerns. To continue to follow-up with his other wound care center provider in regards to his finger management. It is noted he had recent PICC line placement and surgical intervention for his finger.
[2020-04-25 10:01] LABS: Bedside Glucose 76 mg/dL (70-110)
[2020-04-25 10:40] LABS: Bedside Glucose 108 mg/dL (70-110)
[2020-04-25 10:50] LABS: Bedside Glucose 130 mg/dL (70-110)
[2020-04-25 11:36] VITALS: BP 120/67; BP 122/82; PULSE 73; PULSE 83; RESP 18; TEMP 36.8; TEMP 37.1
[2020-04-25 13:06] LABS: Bedside Glucose 168 mg/dL (70-110)
--- NOTE | 2020-04-25 16:19 | PCM.HBO.PN ---
History of Present Illness Date of Service: 04/25/20 Presenting Chief Complaint: Frostbite right long finger with nonhealing necrotic ulcer RICK GEORGE Jr. is a 60 year old currently undergoing hyperbaric oxygen therapy for left plantar Rousseau grade 3 diabetic foot ulcer. Progress: Today represents 41st hyperbaric oxygen treatment of 60 planned treatments. Tolerance of hyperbaric oxygen therapy: Hyperbaric oxygen treatment was provided as per the facility's protocol at 2.0 VINNY and 100% oxygen for 90 minutes. The patient tolerated hyperbaric oxygen well, without complications or complaints. Upon emergence of the hyperbaric chamber the patient's vital signs remained stable. The patient did have bilateral tympanostomy tubes placed on 12/20/2019. Pre-and post blood glucose levels as documented in nursing notes. 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) Chronic ulcer of great toe of left foot with fat layer exposed (Chronic) Type 2 diabetes mellitus with diabetic polyneuropathy (Chronic) Ulcer of left foot with fat layer exposed (Chronic) Hammertoe of right foot (Chronic) History of frostbite (Chronic) left long finger, right index finger, right long finger, and right ring finger Skin necrosis (Chronic) dorsum right long finger at DIP joint Tobacco abuse (Chronic) Raynaud disease (Chronic) Tinea unguium (Chronic) 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 grade 3 treated medically Hammertoe of right foot (Chronic) Delayed wound healing (Chronic) Malnutrition (Chronic) Peripheral vascular disease (Chronic) Type 2 diabetes mellitus with diabetic polyneuropathy (Chronic) Atherosclerotic heart disease of [place] coronary artery without angina pectoris (Chronic) Old myocardial infarction (Chronic) DDD (degenerative disc disease), lumbar (Chronic) with Grade I anterolisthesis of L5 on S1. H/O stroke associated with blood clotting tendency (Chronic) H/O three vessel coronary artery bypass (Chronic ~04/12/18) MACK-LAD, SVG-OM, SVG to left PDA by Dr. Zhu of [facility] Essential (primary) hypertension (Chronic) Other specified peripheral vascular diseases (Chronic) Skin ulcer of finger with fat layer exposed (Chronic) necrotic ulcer dorsum right long finger at DIP joint 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) Allergies/Adverse Reactions: Allergies atorvastatin Adverse Reaction (Verified 03/26/20 17:21) Unknown metformin Adverse Reaction (Verified 03/26/20 17:21) Diarrhea Home Medications: Ambulatory Orders Medication Instructions Recorded Ammonium Lactate [Amlactin] 57 gm TP PRN PRN 10/04/17 Celecoxib [Celebrex] 200 mg PO DAILY 10/04/17 Cholecalciferol (Vitamin D3) 5,000 unit PO DAILY 10/04/17 [Vitamin D3] Levomefolate/B6/B12/Algal Oil 1 ea PO DAILY 10/04/17 [Metanx Capsule] Nortriptyline HCl 50 mg PO QHS 10/04/17 Biotin 1 mg PO DAILY 04/01/18 Desonide 0.05% [Desowen 0.05% 1 applic TOPICAL BID PRN 04/01/18 Cream] Diflorasone Diacetate [Psorcon] 1 applicatio TP BID PRN 04/01/18 Insulin Glargine,Hum.rec.anlog 20 unit SQ DAILY 04/01/18 [Basaglar Kwikpen U-100] Insulin Lispro [Humalog KwikPen] See Protocol SQ TIDCM 04/01/18 Ketoconazole [Nizoral Cream] 1 applic TOPICAL DAILY PRN 04/01/18 Magnesium 250 mg PO DAILY 04/01/18 metoprolol tartrate 25 mg tablet 12.5 mg PO BID tab MDD 1.5 tabs 07/19/18 albuterol sulfate 90 mcg/actuation 2 puff INHALATION Q4H PRN g 08/13/19 aerosol inhaler amlodipine 10 mg tablet 10 mg PO DAILY 08/13/19 becaplermin 0.01 % topical gel 1 applic TOPICAL DAILY PRN 08/13/19 cetirizine 10 mg tablet 10 mg PO DAILY 08/13/19 gabapentin 300 mg capsule 900 mg PO TID cap 08/13/19 simvastatin 10 mg tablet 10 mg PO QHS 08/13/19 vardenafil 20 mg tablet 20 mg PO DAILY PRN 08/13/19 Cyanocobalamin [Vitamin B12] 1,000 mcg IM Q30D 08/22/19 aspirin 81 mg tablet,delayed 162 mg PO DAILY tab MDD . 10/12/19 release baclofen 20 mg tablet 30 mg PO TID tab 10/12/19 famotidine 20 mg tablet 20 mg PO DAILY 10/12/19 furosemide 20 mg tablet 20 mg PO BID PRN tab 10/12/19 Lisinopril 5 mg PO QDAY 03/26/20 Cefazolin 2 gm IV Q8 40 Days #120 vial 03/31/20 Docusate Sodium [Colace] 100 mg PO BID cap 03/31/20 Gauze Bandage [Gauze Pads] 1 ea TP DAILY 30 Days #30 bandage 03/31/20 Gauze Bandage [Kerlix] 1 ea TP DAILY 30 Days #30 bandage 03/31/20 Insulin Lispro [Humalog KwikPen] See Protocol SUBCUT ACHS 03/31/20 insuln.pen Melatonin 3 mg PO QHS PRN tab 03/31/20 Silver/Hydrocolloid Dressing 1 ea TP DAILY 30 Days #5 bandage 03/31/20 [Aquacel-Ag W-Hydrofiber Dress] Maternal Family History: Family History (Last Reviewed 04/16/20 @ 09:56 by Linda Leon) Other Arthritis Hypertension Family History: Diabetes Paternal Family History: Family History (Last Reviewed 04/16/20 @ 09:56 by Linda Leon) Other Arthritis Hypertension Family History: Diabetes Smoking Status: Never smoker Tobacco Use: Non-smoker Alcohol: None Drugs: None Physical Exam Vital Signs Temp Pulse Resp BP Pulse Ox 98.7 F 83 18 122/82 H 100 04/25/20 11:36 04/25/20 11:36 04/25/20 11:36 04/25/20 11:36 04/16/20 00:25 General: Alert, Oriented x3, Cooperative, No apparent distress Psych/Mental Status: Normal Affect, Appropriate Assessment/Plan Active Problems (Last Reviewed 04/16/20 @ 09:56 by Linda Leon) Finger osteomyelitis, right (Acute) Type 2 diabetes mellitus with diabetic polyneuropathy (Chronic) Ulcer of left foot with fat layer exposed (Chronic) History of frostbite (Chronic) left long finger, right index finger, right long finger, and right ring finger Skin ulcer of finger with fat layer exposed (Chronic) necrotic ulcer dorsum right long finger at DIP joint The patient tolerated the Hyperbaric oxygen treatment well, which he will continue as per his medical plan. Treatment Course Number Number of HBO Treatments 60 Ordered Treatment Course Number 1 Treatment # 41 Chamber # [id number] Chamber Type Monoplace HBO Diagnosis/Indication Diagnosis/Indication(s) for Left Diabetic Foot Ulcer,Standard/Conservative Hyperbaric Therapy Classification - Rousseau Grade 3 Grading (Diabetic Ulcer) [] Classification - Rousseau Grade 1 Grading (Diabetic Ulcer) [] Classification - Rousseau Grade 1 Grading (Diabetic Ulcer) [] Classification - Rousseau Grade 1 Grading (Diabetic Ulcer) [] Classification - Rousseau Grade 1 Grading (Diabetic Ulcer) [] Classification - Rousseau Grade 3 Grading (Diabetic Ulcer) Diabetes - Detail Diabetes Diabetes Type II Diabetes Control Uncontrolled Left Extremity Ulcer, Other part of Foot Right Extremity Ulcer, Heel & Midfoot Treatment Plan VINNY (Atmospheric Absolute) 2 Number of Minutes 90 Number of Air Breaks 0
[2020-04-28 12:26] LABS: Bedside Glucose 143 mg/dL (70-110)
--- NOTE | 2020-04-28 13:21 | PCM.HBO.PN ---
History of Present Illness Date of Service: 04/28/20 Presenting Chief Complaint: Left foot ulcer RICK GEORGE Jr. is a 60 year old currently undergoing hyperbaric oxygen therapy for left plantar Rousseau grade 3 diabetic foot ulcer. Progress: Today represents 42nd hyperbaric oxygen treatment of 60 planned treatments. Tolerance of hyperbaric oxygen therapy: Hyperbaric oxygen treatment was provided as per the facility's protocol at 2.0 VINNY and 100% oxygen for 90 minutes. The patient tolerated hyperbaric oxygen well, without complications or complaints. Upon emergence of the hyperbaric chamber the patient's vital signs remained stable. The patient did have bilateral tympanostomy tubes placed on 12/20/2019. Pre-and post blood glucose levels as documented in nursing notes. 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) Chronic ulcer of great toe of left foot with fat layer exposed (Chronic) Type 2 diabetes mellitus with diabetic polyneuropathy (Chronic) Ulcer of left foot with fat layer exposed (Chronic) Hammertoe of right foot (Chronic) History of frostbite (Chronic) left long finger, right index finger, right long finger, and right ring finger Skin necrosis (Chronic) dorsum right long finger at DIP joint Tobacco abuse (Chronic) Raynaud disease (Chronic) Tinea unguium (Chronic) 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 grade 3 treated medically Hammertoe of right foot (Chronic) Delayed wound healing (Chronic) Malnutrition (Chronic) Peripheral vascular disease (Chronic) Type 2 diabetes mellitus with diabetic polyneuropathy (Chronic) Atherosclerotic heart disease of [place] coronary artery without angina pectoris (Chronic) Old myocardial infarction (Chronic) DDD (degenerative disc disease), lumbar (Chronic) with Grade I anterolisthesis of L5 on S1. H/O stroke associated with blood clotting tendency (Chronic) H/O three vessel coronary artery bypass (Chronic ~04/12/18) MACK-LAD, SVG-OM, SVG to left PDA by Dr. Zhu of [facility] Essential (primary) hypertension (Chronic) Other specified peripheral vascular diseases (Chronic) Skin ulcer of finger with fat layer exposed (Chronic) necrotic ulcer dorsum right long finger at DIP joint 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) Allergies/Adverse Reactions: Allergies atorvastatin Adverse Reaction (Verified 03/26/20 17:21) Unknown metformin Adverse Reaction (Verified 03/26/20 17:21) Diarrhea Home Medications: Ambulatory Orders Medication Instructions Recorded Ammonium Lactate [Amlactin] 57 gm TP PRN PRN 10/04/17 Celecoxib [Celebrex] 200 mg PO DAILY 10/04/17 Cholecalciferol (Vitamin D3) 5,000 unit PO DAILY 10/04/17 [Vitamin D3] Levomefolate/B6/B12/Algal Oil 1 ea PO DAILY 10/04/17 [Metanx Capsule] Nortriptyline HCl 50 mg PO QHS 10/04/17 Biotin 1 mg PO DAILY 04/01/18 Desonide 0.05% [Desowen 0.05% 1 applic TOPICAL BID PRN 04/01/18 Cream] Diflorasone Diacetate [Psorcon] 1 applicatio TP BID PRN 04/01/18 Insulin Glargine,Hum.rec.anlog 20 unit SQ DAILY 04/01/18 [Basaglar Kwikpen U-100] Insulin Lispro [Humalog KwikPen] See Protocol SQ TIDCM 04/01/18 Ketoconazole [Nizoral Cream] 1 applic TOPICAL DAILY PRN 04/01/18 Magnesium 250 mg PO DAILY 04/01/18 metoprolol tartrate 25 mg tablet 12.5 mg PO BID tab MDD 1.5 tabs 07/19/18 albuterol sulfate 90 mcg/actuation 2 puff INHALATION Q4H PRN g 08/13/19 aerosol inhaler amlodipine 10 mg tablet 10 mg PO DAILY 08/13/19 becaplermin 0.01 % topical gel 1 applic TOPICAL DAILY PRN 08/13/19 cetirizine 10 mg tablet 10 mg PO DAILY 08/13/19 gabapentin 300 mg capsule 900 mg PO TID cap 08/13/19 simvastatin 10 mg tablet 10 mg PO QHS 08/13/19 vardenafil 20 mg tablet 20 mg PO DAILY PRN 08/13/19 Cyanocobalamin [Vitamin B12] 1,000 mcg IM Q30D 08/22/19 aspirin 81 mg tablet,delayed 162 mg PO DAILY tab MDD . 10/12/19 release baclofen 20 mg tablet 30 mg PO TID tab 10/12/19 famotidine 20 mg tablet 20 mg PO DAILY 10/12/19 furosemide 20 mg tablet 20 mg PO BID PRN tab 10/12/19 Lisinopril 5 mg PO QDAY 03/26/20 Cefazolin 2 gm IV Q8 40 Days #120 vial 03/31/20 Docusate Sodium [Colace] 100 mg PO BID cap 03/31/20 Gauze Bandage [Gauze Pads] 1 ea TP DAILY 30 Days #30 bandage 03/31/20 Gauze Bandage [Kerlix] 1 ea TP DAILY 30 Days #30 bandage 03/31/20 Insulin Lispro [Humalog KwikPen] See Protocol SUBCUT ACHS 03/31/20 insuln.pen Melatonin 3 mg PO QHS PRN tab 03/31/20 Silver/Hydrocolloid Dressing 1 ea TP DAILY 30 Days #5 bandage 03/31/20 [Aquacel-Ag W-Hydrofiber Dress] Maternal Family History: Family History (Last Reviewed 04/16/20 @ 09:56 by Linda Leon) Other Arthritis Hypertension Family History: Diabetes Paternal Family History: Family History (Last Reviewed 04/16/20 @ 09:56 by Linda Leon) Other Arthritis Hypertension Family History: Diabetes Smoking Status: Never smoker Tobacco Use: Non-smoker Alcohol: None Drugs: None Physical Exam Vital Signs Temp Pulse Resp BP Pulse Ox 98.7 F 83 18 122/82 H 100 04/25/20 11:36 04/25/20 11:36 04/25/20 11:36 04/25/20 11:36 04/16/20 00:25 General: Alert, Oriented x3, Cooperative HEENT: Atraumatic, - - Bilateral TM tubes in place. No erythema. Small amouont of cerumen present. Lungs: Clear to auscultation, Normal air movement Cardiovascular: Regular rate, Regular Rhythm Psych/Mental Status: Normal Affect, Appropriate Assessment/Plan Active Problems (Last Reviewed 04/16/20 @ 09:56 by Linda R Leon) Finger osteomyelitis, right (Acute) Type 2 diabetes mellitus with diabetic polyneuropathy (Chronic) Ulcer of left foot with fat layer exposed (Chronic) History of frostbite (Chronic) left long finger, right index finger, right long finger, and right ring finger Skin ulcer of finger with fat layer exposed (Chronic) necrotic ulcer dorsum right long finger at DIP joint The patient tolerated the Hyperbaric oxygen treatment well, which he will continue as per his medical plan. Treatment Course Number Number of HBO Treatments 60 Ordered Treatment Course Number 1 Treatment # 41 Chamber # [id number] Chamber Type Monoplace HBO Diagnosis/Indication Diagnosis/Indication(s) for Left Diabetic Foot Ulcer,Standard/Conservative Hyperbaric Therapy Classification - Rousseau Grade 3 Grading (Diabetic Ulcer) [] Classification - Rousseau Grade 1 Grading (Diabetic Ulcer) [] Classification - Rousseau Grade 1 Grading (Diabetic Ulcer) [] Classification - Rousseau Grade 1 Grading (Diabetic Ulcer) [] Classification - Rousseau Grade 1 Grading (Diabetic Ulcer) [] Classification - Rousseau Grade 3 Grading (Diabetic Ulcer) Diabetes - Detail Diabetes Diabetes Type II Diabetes Control Uncontrolled Left Extremity Ulcer, Other part of Foot Right Extremity Ulcer, Heel & Midfoot Treatment Plan VINNY (Atmospheric Absolute) 2 Number of Minutes 90 Number of Air Breaks [phone] [id number]
[2020-04-28 14:41] LABS: Bedside Glucose 105 mg/dL (70-110)
[2020-04-28 14:43] VITALS: BP 133/75; PULSE 67; RESP 16; TEMP 36.3; BMI 30.7
[2020-04-28 14:54] VITALS: BP 132/81; PULSE 87; RESP 16; TEMP 36.6
--- NOTE | 2020-04-28 15:45 | PN.PCM_ITS ---
(1) Skin ulcer of finger with fat layer exposed Status: Chronic Current Visit: Yes Code(s): L98.492 - Non-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ulcer of skin of other sites with fat layer exposed Comment: necrotic ulcer dorsum right long finger at DIP joint (2) Finger osteomyelitis, right Status: Chronic Current Visit: Yes Code(s): M86.9 - Osteomyelitis, unspecified (3) Type 2 diabetes mellitus with diabetic polyneuropathy Status: Chronic Current Visit: Yes Code(s): E11.42 - Type 2 diabetes m ellitus with diabetic polyneuropathy (4) History of frostbite Status: Chronic Current Visit: Yes Code(s): Z91.89 - Other specified personal risk factors, not elsewhere classified Comment: left long finger, right index finger, right long finger, and right ring finger Type of Wound Date of Service: 04/28/20 Chief Complaint: Frostbite right long finger with nonhealing necrotic ulcer History of Wound: 59-year-old man with a history of diabetes who is presently being seen for a left diabetic foot ulcer has some skin necrosis on the dorsum right long finger at the DIP joint. He sustained frostbite back on October 03, 2019 involving his left long finger, right index finger, right long finger, and right ring finger. He was seen at [facility]. After careful observation to look for areas of demarcation, all the fingers survived with the exception of some skin necrosis on the right long finger. He became concerned recently because of increased pain and drainage from the eschar. Patient is right hand dominant. A wound culture from 01/07/20 was positive for Staphylococcus aureas. He was placed on Doxycycline. Additional wound culture from 02/20/20 was positive for Staphylococcus aureus. He was placed on Levaquin. Wound care to right long finger is silver dressing covered by gauze and using coband to hold in place. On 03/28/20 Surgical preparation dorsal aspect right long finger at DIP joint with incision and drainage and excisional debridement nonhealing infected diabetic abscess ulcer and partial ostectomy proximal distal phalanx and distal middle phalanx for osteomyelitis. Surgical culture was positive for Staphylococcus aureus. Pathology of bone from 03/28/20 positive of acute osteomyelitis. Today denies any fevers. Patient states he has a good appetite. X-ray from 01/28/20 showed Vascular calcification. 3 tiny bony densities overlying the distal interphalangeal joint of the third digit along the dorsal aspect. Progress of Wound: Improvement of right long finger ulcer - Physical Exam Vital Signs Temp Pulse Resp BP Pulse Ox 97.9 F 87 16 132/81 H 100 04/28/20 14:54 04/28/20 14:54 04/28/20 14:54 04/28/20 14:54 04/16/20 00:25 General: Alert, Oriented x3, Cooperative HEENT: Atraumatic Oral: Moist Mucosa Lungs: Clear to auscultation, Normal air movement Cardiovascular: Regular rate, Regular Rhythm Abdomen: Bowel Sounds Present, Soft Extremities: Capillary Refill Less than 3 Seconds Skin: Ulcer/ Wound - right long finger ulcer on dorsal surface at DIP joint. Area is clean. Wound Measurements and Assessment WC - Nurse 1 - General Ulcer Measurement Start: 04/16/20 15:45 Freq: Status: Active Protocol: Activity Type Activity Date Activity User E-Sign Co-Sign Detail Recorded Client Recorded Date Recorded By Document 04/28/20 14:43 [id number] 04/28/20 15:01 04/28/20 14:43 Wound Center Nurse 1 [Ulcer Assessment] #13 R 3rd finger long finger -Combined with other wound No -Current Size (cm) - Length 0.3 -Current Size (cm) - Width 1.0 -Current Size (cm) - Depth 0.3 -Total Square Cm 0.30 -Photo Taken No -Epithelialization Medium 34-66% -Tunneling No -Undermining/Tunneling No -Circular Undermining No -Exudate Amt Small -Exudate Type Serosanguineous -Wound Margin Flat & Intact -Granulation Amt Medium (34-66%) -Granulation Quality Red -Slough/Fibrin Yes -Necrosis Amt Small (1-33%) -Necrotic Tissue Type Adherent Slough -Structure Exposed N/A -Texture (Mechelle-wound Skin Appearance) Assessed, Scarring -Moisture ([place]helle-wound Skin Appearance Assessed,Dry/ ) Scaly -Color ([place]helle-wound Skin Appearance) Assessed -Temperature ([place]helle-wound Skin No Abnormality Appearance) (Pt Warm) -Tenderness on Palpation ([place]helle-wound No Skin Appearance) -Ulcer Cleansing Rinsed/ Irrigated with Saline -Foul Odor after Cleansing No -Anesthetic Used 4% Lidocaine Solution [Edema Assessment] -Lower Limb Edema Present NA WC - Nurse 2 - General Ulcer CM Notes Start: 04/16/20 15:45 Freq: Status: Active Protocol: Activity Type Activity Date Activity User E-Sign Co-Sign Detail Recorded Client Recorded Date Recorded By Document 04/28/20 15:01 [id number] 04/28/20 15:03 04/28/20 15:01 Wound Center Nurse 2 [Procedure/Treatment] #13 R 3rd finger long finger -Correct Patient Yes -Correct Side, Site, Position Yes -Correct Procedure Yes -Procedure Performed Yes -Type of Procedure Debridement -Clinical Debridement Subcutaneous -Post Debridement Size (cm) - Length 0.8 -Post Debridement Size (cm) - Width 1.5 -Post Debridement Size (cm) - Depth 0.4 -Total Square Cm 1.20 -Wound/Ulcer Outcome Not Healed -Ulcer Cleansing Rinsed/ Irrigated with Saline -Foul Odor after Cleansing No -Bioengineered Tissue No -Bleeding Controlled with Pressure -Offloading No -Treatment Response Procedure Tolerated Well [See Physician Procedure note for Specifics] Pain Scale: 0-10 Numeric [Pain] -Is Patient Pain Free? Yes Musculoskeletal: No Tenderness to Palpation of Joints or Extremities Neurological: Cranial nerves II-XII grossly intact Psych/Mental Status: Normal Affect, Appropriate Debridement Note Post-Debridement Measurements/Treatment - Nurse 2 - General Ulcer CM Notes Start: 04/16/20 15:45 Freq: Status: Active Protocol: Activity Type Activity Date Activity User E-Sign Co-Sign Detail Recorded Client Recorded Date Recorded By Document 04/16/20 16:13 [id number] 04/16/20 16:14 Document 04/22/20 07:16 PL [id number] 04/22/20 07:17 PL Document 04/23/20 15:47 PL [id number] 04/23/20 15:47 PL Document 04/28/20 15:01 [id number] 04/28/20 15:03 04/16/20 04/22/20 04/23/20 16:13 07:16 15:47 Wound Center Nurse 2 #11 L Foot Plantar -Time 16:13 15:45 -Correct Patient Yes Yes -Correct Side, Site, Position Yes Yes -Correct Procedure Yes Yes -Procedure Performed Yes Yes -Type of Procedure Debridement Debridement -Clinical Debridement Subcutaneous Subcutaneous -Post Debridement Size (cm) - Length 1.0 0.4 -Post Debridement Size (cm) - Width 0.7 0.3 -Post Debridement Size (cm) - Depth 0.2 0.2 -Total Square Cm 0.70 0.12 -Wound/Ulcer Outcome Not Healed Not Healed -Ulcer Cleansing Rinsed/ Rinsed/ Irrigated with Irrigated with Saline Saline -Foul Odor after Cleansing No No -Bioengineered Tissue No -Bleeding Controlled with Pressure Pressure -Offloading Yes -Type of Offloading Camwalker Camwalker -Treatment Response Procedure Procedure Tolerated Well Tolerated Well #13 R 3rd finger long finger -Time 14:19 -Correct Patient Yes -Correct Side, Site, Position Yes -Correct Procedure Yes -Procedure Performed Yes -Type of Procedure Debridement -Clinical Debridement Subcutaneous -Post Debridement Size (cm) - Length 0.6 -Post Debridement Size (cm) - Width 1.5 -Post Debridement Size (cm) - Depth 0.2 -Total Square Cm 0.90 -Wound/Ulcer Outcome Not Healed -Ulcer Cleansing Rinsed/ Irrigated with Saline -Foul Odor after Cleansing No -Bioengineered Tissue -Bleeding Controlled with Pressure -Offloading -Treatment Response Procedure Tolerated Well Pain Scale: 0-10 Numeric Is Patient Pain Free? Yes Yes Yes 04/28/20 15:01 Wound Center Nurse 2 #11 L Foot Plantar -Time -Correct Patient -Correct Side, Site, Position -Correct Procedure -Procedure Performed -Type of Procedure -Clinical Debridement -Post Debridement Size (cm) - Length -Post Debridement Size (cm) - Width -Post Debridement Size (cm) - Depth -Total Square Cm -Wound/Ulcer Outcome -Ulcer Cleansing -Foul Odor after Cleansing -Bioengineered Tissue -Bleeding Controlled with -Offloading -Type of Offloading -Treatment Response #13 R 3rd finger long finger -Time -Correct Patient Yes -Correct Side, Site, Position Yes -Correct Procedure Yes -Procedure Performed Yes -Type of Procedure Debridement -Clinical Debridement Subcutaneous -Post Debridement Size (cm) - Length 0.8 -Post Debridement Size (cm) - Width 1.5 -Post Debridement Size (cm) - Depth 0.4 -Total Square Cm 1.20 -Wound/Ulcer Outcome Not Healed -Ulcer Cleansing Rinsed/ Irrigated with Saline -Foul Odor after Cleansing No -Bioengineered Tissue No -Bleeding Controlled with Pressure -Offloading No -Treatment Response Procedure Tolerated Well Pain Scale: 0-10 Numeric Is Patient Pain Free? Yes Wound debrided: dorsal long finger at DIP joint Laterality: Right Type of Debridement: Excisional debridement Anesthesia Used: 5% Lidocaine Gel Depth: Down to and including healthy tissue, in the subcutaneous layer Percentage of wound debrided: 100 Instrument Used: 3mm curette Tissue Removed: Subcutaneous tissue and slough Severity: Limited To Skin Breakdown Amount of bleeding with debridement: Mild Bleeding Controlled with: Pressure Patient tolerated procedure well Assessment/Plan Active Problems (Last Reviewed 04/16/20 @ 09:56 by Linda Leon) Finger osteomyelitis, right (Chronic) Type 2 diabetes mellitus with diabetic polyneuropathy (Chronic) Ulcer of left foot with fat layer exposed (Chronic) History of frostbite (Chronic) left long finger, right index finger, right long finger, and right ring finger Skin ulcer of finger with fat layer exposed (Chronic) necrotic ulcer dorsum right long finger at DIP joint Assessment: 1. Nonhealing necrotic ulcer dorsum right long finger at DIP joint. 2. Diabetes mellitus. 3. History of recent frostbite. 4. Raynaud's disease. 5. Peripheral vascular disease. 6. Smoker. Plan: Wound care: Moistened Silver with adaptic dressing changes daily. On 03/28/20 Surgical preparation dorsal aspect right long finger at DIP joint with incision and drainage and excisional debridement nonhealing infected diabetic abscess ulcer and partial ostectomy proximal distal phalanx and distal middle phalanx for osteomyelitis. Surgical culture was positive for Staphylococcus aureus. Pathology of bone from 03/28/20 positive of acute osteomyelitis. Dr. Abdi from [place] consulted and he has placed patient on Cefazolin IV for 6 weeks to end 05/09/20. CT from 03/26/20 showed Osseous destruction with erosive change of the third middle and distal phalanges consistent with osteomyelitis versus osteolysis X-ray from 01/28/20 showed Vascular calcification. 3 tiny bony densities overlying the distal interphalangeal joint of the third digit along the dorsal aspect. Encourage range of motion exercises to minimize stiffness. A wound culture from 01/07/20 was positive for Staphylococcus aureas. He was placed on Doxycycline, which he will continue. Repeat culture from 02/20/20 showed Staphylococcus aureus. He was placed on Levaquin. His HgbA1c from 08/23/19 was 6.1. His last Prealbumin from 03/04/17 was 24.1. Encourage nutritional supplementation with protein to help the healing process. He has just finished HBO for a left diabetic foot ulcer which should help to heal his right long finger wound. If healing is delayed, he would need operative debridement with skin flap or skin graft reconstruction. With his history of Raynaud's and peripheral vascular disease and smoking, he is at increased risk of developing wound healing problems and possible osteomyelitis that would lead to an eventual amputation. He voices understanding. He's also at risk for amputation because he gets chemicals on his finger through his cotton gloves at work. He states he doesn't have time to wash his hands often while at work. Encouraged the patient to stop smoking as it may have deleterious effects on wound healing. Followup 1 week. He is also seeing another provider for his f oot ulcer and he has restarted HBOT. [id number]: [id number] Global Visit
[2020-04-29 10:41] LABS: Bedside Glucose 202 mg/dL (70-110)
--- NOTE | 2020-04-29 12:49 | PCM.HBO.PN ---
History of Present Illness Date of Service: 04/29/20 Presenting Chief Complaint: Left foot ulcer RICK GEORGE Jr. is a 60 year old currently undergoing hyperbaric oxygen therapy for left plantar Rousseau grade 3 diabetic foot ulcer. Progress: Today represents 43rd hyperbaric oxygen treatment of 60 planned treatments. Tolerance of hyperbaric oxygen therapy: Hyperbaric oxygen treatment was provided as per the facility's protocol at 2.0 VINNY and 100% oxygen for 90 minutes. The patient tolerated hyperbaric oxygen well, without complications or complaints. Upon emergence of the hyperbaric chamber the patient's vital signs remained stable. The patient did have bilateral tympanostomy tubes placed on 12/20/2019. Pre-and post blood glucose levels as documented in nursing notes. 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) Chronic ulcer of great toe of left foot with fat layer exposed (Chronic) Type 2 diabetes mellitus with diabetic polyneuropathy (Chronic) Ulcer of left foot with fat layer exposed (Chronic) Hammertoe of right foot (Chronic) History of frostbite (Chronic) left long finger, right index finger, right long finger, and right ring finger Skin necrosis (Chronic) dorsum right long finger at DIP joint Tobacco abuse (Chronic) Raynaud disease (Chronic) Tinea unguium (Chronic) 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 grade 3 treated medically Hammertoe of right foot (Chronic) Delayed wound healing (Chronic) Malnutrition (Chronic) Peripheral vascular disease (Chronic) Type 2 diabetes mellitus with diabetic polyneuropathy (Chronic) Atherosclerotic heart disease of [place] coronary artery without angina pectoris (Chronic) Old myocardial infarction (Chronic) DDD (degenerative disc disease), lumbar (Chronic) with Grade I anterolisthesis of L5 on S1. H/O stroke associated with blood clotting tendency (Chronic) H/O three vessel coronary artery bypass (Chronic ~04/12/18) MACK-LAD, SVG-OM, SVG to left PDA by Dr. Zhu of [facility] Essential (primary) hypertension (Chronic) Other specified peripheral vascular diseases (Chronic) Skin ulcer of finger with fat layer exposed (Chronic) necrotic ulcer dorsum right long finger at DIP joint 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) Allergies/Adverse Reactions: Allergies atorvastatin Adverse Reaction (Verified 03/26/20 17:21) Unknown metformin Adverse Reaction (Verified 03/26/20 17:21) Diarrhea Home Medications: Ambulatory Orders Medication Instructions Recorded Ammonium Lactate [Amlactin] 57 gm TP PRN PRN 10/04/17 Celecoxib [Celebrex] 200 mg PO DAILY 10/04/17 Cholecalciferol (Vitamin D3) 5,000 unit PO DAILY 10/04/17 [Vitamin D3] Levomefolate/B6/B12/Algal Oil 1 ea PO DAILY 10/04/17 [Metanx Capsule] Nortriptyline HCl 50 mg PO QHS 10/04/17 Biotin 1 mg PO DAILY 04/01/18 Desonide 0.05% [Desowen 0.05% 1 applic TOPICAL BID PRN 04/01/18 Cream] Diflorasone Diacetate [Psorcon] 1 applicatio TP BID PRN 04/01/18 Insulin Glargine,Hum.rec.anlog 20 unit SQ DAILY 04/01/18 [Basaglar Kwikpen U-100] Insulin Lispro [Humalog KwikPen] See Protocol SQ TIDCM 04/01/18 Ketoconazole [Nizoral Cream] 1 applic TOPICAL DAILY PRN 04/01/18 Magnesium 250 mg PO DAILY 04/01/18 metoprolol tartrate 25 mg tablet 12.5 mg PO BID tab MDD 1.5 tabs 07/19/18 albuterol sulfate 90 mcg/actuation 2 puff INHALATION Q4H PRN g 08/13/19 aerosol inhaler amlodipine 10 mg tablet 10 mg PO DAILY 08/13/19 becaplermin 0.01 % topical gel 1 applic TOPICAL DAILY PRN 08/13/19 cetirizine 10 mg tablet 10 mg PO DAILY 08/13/19 gabapentin 300 mg capsule 900 mg PO TID cap 08/13/19 simvastatin 10 mg tablet 10 mg PO QHS 08/13/19 vardenafil 20 mg tablet 20 mg PO DAILY PRN 08/13/19 Cyanocobalamin [Vitamin B12] 1,000 mcg IM Q30D 08/22/19 aspirin 81 mg tablet,delayed 162 mg PO DAILY tab MDD . 10/12/19 release baclofen 20 mg tablet 30 mg PO TID tab 10/12/19 famotidine 20 mg tablet 20 mg PO DAILY 10/12/19 furosemide 20 mg tablet 20 mg PO BID PRN tab 10/12/19 Lisinopril 5 mg PO QDAY 03/26/20 Cefazolin 2 gm IV Q8 40 Days #120 vial 03/31/20 Docusate Sodium [Colace] 100 mg PO BID cap 03/31/20 Gauze Bandage [Gauze Pads] 1 ea TP DAILY 30 Days #30 bandage 03/31/20 Gauze Bandage [Kerlix] 1 ea TP DAILY 30 Days #30 bandage 03/31/20 Insulin Lispro [Humalog KwikPen] See Protocol SUBCUT ACHS 03/31/20 insuln.pen Melatonin 3 mg PO QHS PRN tab 03/31/20 Silver/Hydrocolloid Dressing 1 ea TP DAILY 30 Days #5 bandage 03/31/20 [Aquacel-Ag W-Hydrofiber Dress] Maternal Family History: Family History (Last Reviewed 04/16/20 @ 09:56 by Linda Leon) Other Arthritis Hypertension Family History: Diabetes Paternal Family History: Family History (Last Reviewed 04/16/20 @ 09:56 by Linda Leon) Other Arthritis Hypertension Family History: Diabetes Smoking Status: Never smoker Tobacco Use: Non-smoker Alcohol: None Drugs: None Physical Exam Vital Signs Temp Pulse Resp BP Pulse Ox 97.9 F 87 16 132/81 H 100 04/28/20 14:54 04/28/20 14:54 04/28/20 14:54 04/28/20 14:54 04/16/20 00:25 General: Alert, Oriented x3, Cooperative, No apparent distress HEENT: Atraumatic, TM's Clear Lungs: Clear to auscultation, Normal air movement Cardiovascular: Regular rate, Regular Rhythm Psych/Mental Status: Normal Affect, Appropriate, Alert and oriented to time, place, person, mood and affect Assessment/Plan Active Problems (Last Reviewed 04/16/20 @ 09:56 by Linda R Leon) Finger osteomyelitis, right (Acute) Type 2 diabetes mellitus with diabetic polyneuropathy (Chronic) Ulcer of left foot with fat layer exposed (Chronic) History of frostbite (Chronic) left long finger, right index finger, right long finger, and right ring finger Skin ulcer of finger with fat layer exposed (Chronic) necrotic ulcer dorsum right long finger at DIP joint Treatment Course Number Number of HBO Treatments 60 Ordered Treatment Course Number 1 Treatment # 43 Chamber # [id number] Chamber Type Monoplace HBO Diagnosis/Indication Diagnosis/Indication(s) for Left Diabetic Foot Ulcer,Standard/Conservative Hyperbaric Therapy Classification - Rousseau Grade 3 Grading (Diabetic Ulcer) [] Classification - Rousseau Grade 1 Grading (Diabetic Ulcer) [] Classification - Rousseau Grade 1 Grading (Diabetic Ulcer) [] Classification - Rousseau Grade 1 Grading (Diabetic Ulcer) [] Classification - Rousseau Grade 1 Grading (Diabetic Ulcer) [] Classification - Rousseau Grade 3 Grading (Diabetic Ulcer) Diabetes - Detail Diabetes Diabetes Type II Diabetes Control Uncontrolled Left Extremity Ulcer, Other part of Foot Right Extremity Ulcer, Heel & Midfoot Treatment Plan VINNY (Atmospheric Absolute) 2 Number of Minutes 90 Number of Air Breaks 0
[2020-04-29 13:01] LABS: Bedside Glucose 147 mg/dL (70-110)
[2020-04-29 13:08] VITALS: BP 122/73; BP 140/75; PULSE 74; PULSE 80; RESP 16; RESP 18; TEMP 36.2; TEMP 36.6
[2020-05-01 10:25] LABS: Bedside Glucose 177 mg/dL (70-110)
[2020-05-01 10:55] VITALS: BP 104/66; BP 111/62; PULSE 73; PULSE 83; RESP 18; TEMP 36.5; TEMP 37
--- NOTE | 2020-05-01 12:20 | PCM.HBO.PN ---
History of Present Illness Date of Service: 05/01/20 Presenting Chief Complaint: Frostbite right long finger with nonhealing necrotic ulcer RICK GEORGE Jr. is a 60 year old currently undergoing hyperbaric oxygen therapy for left plantar Rousseau grade 3 diabetic foot ulcer. Progress: Today represents 44th hyperbaric oxygen treatment of 60 planned treatments. Tolerance of hyperbaric oxygen therapy: Hyperbaric oxygen treatment was provided as per the facility's protocol at 2.0 VINNY and 100% oxygen for 90 minutes. The patient tolerated hyperbaric oxygen well, without complications or complaints. Upon emergence of the hyperbaric chamber the patient's vital signs remained stable. The patient did have bilateral tympanostomy tubes placed on 12/20/2019. Pre-and post blood glucose levels as documented in nursing notes. 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) Chronic ulcer of great toe of left foot with fat layer exposed (Chronic) Type 2 diabetes mellitus with diabetic polyneuropathy (Chronic) Ulcer of left foot with fat layer exposed (Chronic) Hammertoe of right foot (Chronic) History of frostbite (Chronic) left long finger, right index finger, right long finger, and right ring finger Skin necrosis (Chronic) dorsum right long finger at DIP joint Tobacco abuse (Chronic) Raynaud disease (Chronic) Tinea unguium (Chronic) 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 H/O stroke associated with blood clotting tendency (Chronic) H/O three vessel coronary artery bypass (Chronic ~04/12/18) MACK-LAD, SVG-OM, SVG to left PDA by Dr. Zhu of [facility] Essential (primary) hypertension (Chronic) Other specified peripheral vascular diseases (Chronic) Skin ulcer of finger with fat layer exposed (Chronic) necrotic ulcer dorsum right long finger at DIP joint 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) Allergies/Adverse Reactions: Allergies atorvastatin Adverse Reaction (Verified 03/26/20 17:21) Unknown metformin Adverse Reaction (Verified 03/26/20 17:21) Diarrhea Home Medications: Ambulatory Orders Medication Instructions Recorded Ammonium Lactate [Amlactin] 57 gm TP PRN PRN 10/04/17 Celecoxib [Celebrex] 200 mg PO DAILY 10/04/17 Cholecalciferol (Vitamin D3) 5,000 unit PO DAILY 10/04/17 [Vitamin D3] Levomefolate/B6/B12/Algal Oil 1 ea PO DAILY 10/04/17 [Metanx Capsule] Nortriptyline HCl 50 mg PO QHS 10/04/17 Biotin 1 mg PO DAILY 04/01/18 Desonide 0.05% [Desowen 0.05% 1 applic TOPICAL BID PRN 04/01/18 Cream] Diflorasone Diacetate [Psorcon] 1 applicatio TP BID PRN 04/01/18 Insulin Glargine,Hum.rec.anlog 20 unit SQ DAILY 04/01/18 [Basaglar Kwikpen U-100] Insulin Lispro [Humalog KwikPen] See Protocol SQ TIDCM 04/01/18 Ketoconazole [Nizoral Cream] 1 applic TOPICAL DAILY PRN 04/01/18 Magnesium 250 mg PO DAILY 04/01/18 metoprolol tartrate 25 mg tablet 12.5 mg PO BID tab MDD 1.5 tabs 07/19/18 albuterol sulfate 90 mcg/actuation 2 puff INHALATION Q4H PRN g 08/13/19 aerosol inhaler amlodipine 10 mg tablet 10 mg PO DAILY 08/13/19 becaplermin 0.01 % topical gel 1 applic TOPICAL DAILY PRN 08/13/19 cetirizine 10 mg tablet 10 mg PO DAILY 08/13/19 gabapentin 300 mg capsule 900 mg PO TID cap 08/13/19 simvastatin 10 mg tablet 10 mg PO QHS 08/13/19 vardenafil 20 mg tablet 20 mg PO DAILY PRN 08/13/19 Cyanocobalamin [Vitamin B12] 1,000 mcg IM Q30D 08/22/19 aspirin 81 mg tablet,delayed 162 mg PO DAILY tab MDD . 10/12/19 release baclofen 20 mg tablet 30 mg PO TID tab 10/12/19 famotidine 20 mg tablet 20 mg PO DAILY 10/12/19 furosemide 20 mg tablet 20 mg PO BID PRN tab 10/12/19 Lisinopril 5 mg PO QDAY 03/26/20 Cefazolin 2 gm IV Q8 40 Days #120 vial 03/31/20 Docusate Sodium [Colace] 100 mg PO BID cap 03/31/20 Gauze Bandage [Gauze Pads] 1 ea TP DAILY 30 Days #30 bandage 03/31/20 Gauze Bandage [Kerlix] 1 ea TP DAILY 30 Days #30 bandage 03/31/20 Insulin Lispro [Humalog KwikPen] See Protocol SUBCUT ACHS 03/31/20 insuln.pen Melatonin 3 mg PO QHS PRN tab 03/31/20 Silver/Hydrocolloid Dressing 1 ea TP DAILY 30 Days #5 bandage 03/31/20 [Aquacel-Ag W-Hydrofiber Dress] Maternal Family History: Family History (Last Reviewed 04/16/20 @ 09:56 by Linda Leon) Other Arthritis Hypertension Family History: Diabetes Paternal Family History: Family History (Last Reviewed 04/16/20 @ 09:56 by Linda Leon) Other Arthritis Hypertension Family History: Diabetes Smoking Status: Never smoker Tobacco Use: Non-smoker Alcohol: None Drugs: None Physical Exam Vital Signs Temp Pulse Resp BP Pulse Ox 97.7 F L 83 18 111/62 100 05/01/20 10:55 05/01/20 10:55 05/01/20 10:55 05/01/20 10:55 04/16/20 00:25 General: Alert, Oriented x3, Cooperative, No apparent distress HEENT: Atraumatic, Normocephalic Lungs: Normal air movement Psych/Mental Status: Normal Affect Assessment/Plan Active Problems (Last Reviewed 04/16/20 @ 09:56 by Linda Leon) Finger osteomyelitis, right (Chronic) Type 2 diabetes mellitus with diabetic polyneuropathy (Chronic) Ulcer of left foot with fat layer exposed (Chronic) History of frostbite (Chronic) left long finger, right index finger, right long finger, and right ring finger Skin ulcer of finger with fat layer exposed (Chronic) necrotic ulcer dorsum right long finger at DIP joint The patient tolerated Hyperbaric oxygen treatment well, which will be continued as per his medical plan. Treatment Course Number Number of HBO Treatments 60 Ordered Treatment Course Number 1 Treatment # 44 Chamber # [id number] Chamber Type Monoplace HBO Diagnosis/Indication Diagnosis/Indication(s) for Left Diabetic Foot Ulcer,Standard/Conservative Hyperbaric Therapy Classification - Rousseau Grade 3 Grading (Diabetic Ulcer) [11. L plantar] Classification - Rousseau Grade 1 Grading (Diabetic Ulcer) [#4 R HEEL] Classification - Rousseau Grade 1 Grading (Diabetic Ulcer) [#3 R 4TH METATARSAL] Classification - Rousseau Grade 1 Grading (Diabetic Ulcer) [#2 L HEEL] Classification - Rousseau Grade 1 Grading (Diabetic Ulcer) [#1 L LAT FOOT] Classification - Rousseau Grade 3 Grading (Diabetic Ulcer) Diabetes - Detail Diabetes Diabetes Type II Diabetes Control Uncontrolled Left Extremity Ulcer, Other part of Foot Right Extremity Ulcer, Heel & Midfoot Treatment Plan VINNY (Atmospheric Absolute) 2 Number of Minutes 90 Number of Air Breaks 0 HBO supervision
[2020-05-01 12:46] LABS: Bedside Glucose 151 mg/dL (70-110)
[2020-05-01 12:50] VITALS: BMI 30.7
[2020-05-05 12:01] VITALS: BP 112/45; PULSE 77; RESP 16; TEMP 36.6; BMI 30.7
--- NOTE | 2020-05-05 16:34 | PCM.WC.PN ---
Type of Wound Date of Service: 05/05/20 Chief Complaint: Nonhealing diabetic abscess ulcer dorsum right long finger at DIP joint with osteomyelitis. History of Wound: Surgery 03/28/20 - Surgical preparation dorsal aspect right long finger at DIP joint with incision and drainage and excisional debridement nonhealing infected diabetic abscess ulcer and partial ostectomy proximal distal phalanx and distal middle phalanx for osteomyelitis. Wound care - Silver. Operative cultures - Staphylococcus aureus in the soft tissue and bone. He was placed on Cefazolin IV until 05/09/20. Pathology - acute osteomyelitis. Prealbumin from 03/27/20 was 18.8. Encourage nutritional supplementation with protein to help the healing process. HgbA1c from 03/28/[address] right hand on 03/26/20 showed osseous destruction with erosive change of the third middle and distal phalanges consistent with osteomyelitis versus osteolysis.. Today he denies fever. His appetite is ok. Progress of Wound: Improved. - Physical Exam Vital Signs Temp Pulse Resp BP Pulse Ox 97.8 F 77 16 112/45 L 100 05/05/20 12:01 05/05/20 12:01 05/05/20 12:01 05/05/20 12:01 04/16/20 00:25 Extremities: - - patient has no extensor function at DIP joint and has no flexor function at DIP joint. The DIP joint was excised from osteomyelitis and the remaining distal phalanx is free floating. Wound Measurements and Assessment WC - Nurse 1 - General Ulcer Measurement Start: 04/16/20 15:45 Freq: Status: Active Protocol: Activity Type Activity Date Activity User E-Sign Co-Sign Detail Recorded Client Recorded Date Recorded By Document 05/05/20 12:[address] [facility] [id number] 05/05/20 12:[address] [facility] 05/05/20 12:01 Wound Center Nurse 1 [Ulcer Assessment] #13 R 3rd finger long finger -Combined with other wound No -Current Size (cm) - Length 0.1 -Current Size (cm) - Width 1 -Current Size (cm) - Depth 0.3 -Total Square Cm 0.1 -Photo Taken No -Epithelialization None Present -Tunneling No -Undermining/Tunneling No -Circular Undermining No -Exudate Amt Small -Exudate Type Serosanguineous -Wound Margin Distinct, Outline Attached -Granulation Amt None Present (0 %) -Slough/Fibrin Yes -Necrosis Amt Large (67-100%) -Necrotic Tissue Type Adherent Slough -Texture (Mechelle-wound Skin Appearance) Assessed, Scarring -Moisture (Mechelle-wound Skin Appearance Assessed,Dry/ ) Scaly -Color (Mechelle-wound Skin Appearance) Assessed -Temperature (Mechelle-wound Skin No Abnormality Appearance) (Pt Warm) -Tenderness on Palpation (Mechelle-wound No Skin Appearance) -Ulcer Cleansing Rinsed/ Irrigated with Saline -Foul Odor after Cleansing No -Anesthetic Used 5% Lidocaine Gel - Nurse 2 - General Ulcer CM Notes Start: 04/16/20 15:45 Freq: Status: Active Protocol: Activity Type Activity Date Activity User E-Sign Co-Sign Detail Recorded Client Recorded Date Recorded By Document 05/05/20 12:09 [id number] 05/05/20 12:14 05/05/20 12:09 Wound Center Nurse 2 [Procedure/Treatment] -Time 12:10 -Correct Patient Yes -Correct Side, Site, Position Yes -Correct Procedure Yes -Procedure Performed Yes -Type of Procedure Debridement -Clinical Debridement Subcutaneous -Post Debridement Size (cm) - Length 0.2 -Post Debridement Size (cm) - Width 1 -Post Debridement Size (cm) - Depth 0.3 -Total Square Cm 0.2 -Wound/Ulcer Outcome Not Healed -Ulcer Cleansing Rinsed/ Irrigated with Saline -Foul Odor after Cleansing No -Bioengineered Tissue No -Bleeding Controlled with Pressure -Offloading No -Treatment Response Procedure Tolerated Well [See Physician Procedure note for Specifics] Pain Scale: 0-10 Numeric [Pain] -Is Patient Pain Free? Yes Debridement Note Post-Debridement Measurements/Treatment - Nurse 2 - General Ulcer CM Notes Start: 04/16/20 15:45 Freq: Status: Active Protocol: Activity Type Activity Date Activity User E-Sign Co-Sign Detail Recorded Client Recorded Date Recorded By Document 04/16/20 16:13 JF [id number] 04/16/20 16:14 JF Document 04/22/20 07:16 PL [id number] 04/22/20 07:17 PL Document 04/23/20 15:47 PL [id number] 04/23/20 15:47 PL Document 04/28/20 15:01 JF [id number] 04/28/20 15:03 JF Document 05/05/20 12:09 [id number] 05/05/20 12:14 JF 04/16/20 04/22/20 04/23/20 16:13 07:16 15:47 Wound Center Nurse 2 #11 L Foot Plantar -Time 16:13 15:45 -Correct Patient Yes Yes -Correct Side, Site, Position Yes Yes -Correct Procedure Yes Yes -Procedure Performed Yes Yes -Type of Procedure Debridement Debridement -Clinical Debridement Subcutaneous Subcutaneous -Post Debridement Size (cm) - Length 1.0 0.4 -Post Debridement Size (cm) - Width 0.7 0.3 -Post Debridement Size (cm) - Depth 0.2 0.2 -Total Square Cm 0.70 0.12 -Wound/Ulcer Outcome Not Healed Not Healed -Ulcer Cleansing Rinsed/ Rinsed/ Irrigated with Irrigated with Saline Saline -Foul Odor after Cleansing No No -Bioengineered Tissue No -Bleeding Controlled with Pressure Pressure -Offloading Yes -Type of Offloading Camwalker Camwalker -Treatment Response Procedure Procedure Tolerated Well Tolerated Well #13 R 3rd finger long finger -Time 14:19 -Correct Patient Yes -Correct Side, Site, Position Yes -Correct Procedure Yes -Procedure Performed Yes -Type of Procedure Debridement -Clinical Debridement Subcutaneous -Post Debridement Size (cm) - Length 0.6 -Post Debridement Size (cm) - Width 1.5 -Post Debridement Size (cm) - Depth 0.2 -Total Square Cm 0.90 -Wound/Ulcer Outcome Not Healed -Ulcer Cleansing Rinsed/ Irrigated with Saline -Foul Odor after Cleansing No -Bioengineered Tissue -Bleeding Controlled with Pressure -Offloading -Treatment Response Procedure Tolerated Well Pain Scale: 0-10 Numeric Is Patient Pain Free? Yes Yes Yes 04/28/20 05/05/20 15:01 12:09 Wound Center Nurse 2 #11 L Foot Plantar -Time -Correct Patient -Correct Side, Site, Position -Correct Procedure -Procedure Performed -Type of Procedure -Clinical Debridement -Post Debridement Size (cm) - Length -Post Debridement Size (cm) - Width -Post Debridement Size (cm) - Depth -Total Square Cm -Wound/Ulcer Outcome -Ulcer Cleansing -Foul Odor after Cleansing -Bioengineered Tissue -Bleeding Controlled with -Offloading -Type of Offloading -Treatment Response #13 R 3rd finger long finger -Time 12:10 -Correct Patient Yes Yes -Correct Side, Site, Position Yes Yes -Correct Procedure Yes Yes -Procedure Performed Yes Yes -Type of Procedure Debridement Debridement -Clinical Debridement Subcutaneous Subcutaneous -Post Debridement Size (cm) - Length 0.8 0.2 -Post Debridement Size (cm) - Width 1.5 1 -Post Debridement Size (cm) - Depth 0.4 0.3 -Total Square Cm 1.20 0.2 -Wound/Ulcer Outcome Not Healed Not Healed -Ulcer Cleansing Rinsed/ Rinsed/ Irrigated with Irrigated with Saline Saline -Foul Odor after Cleansing No No -Bioengineered Tissue No No -Bleeding Controlled with Pressure Pressure -Offloading No No -Treatment Response Procedure Procedure Tolerated Well Tolerated Well Pain Scale: 0-10 Numeric Is Patient Pain Free? Yes Yes Wound debrided: #13 Right long finger at DIP joint. Laterality: Right Wound Grade/Stage: 4. Type of Debridement: Excisional debridement Anesthesia Used: 4% Lidocaine Solution Depth: Down to and including healthy tissue, in the subcutaneous layer Percentage of wound debrided: 100 Instrument Used: - - 1mm curette Tissue Removed: subcutanenous tissue. Severity: Fat Layer Exposed Amount of bleeding with debridement: Mild Bleeding Controlled with: Pressure Patient tolerated procedure well Assessment/Plan Active Problems (Last Reviewed 04/16/20 @ 09:56 by Linda Leon) Finger osteomyelitis, right (Chronic) Type 2 diabetes mellitus with diabetic polyneuropathy (Chronic) Ulcer of left foot with fat layer exposed (Chronic) History of frostbite (Chronic) left long finger, right index finger, right long finger, and right ring finger Skin ulcer of finger with fat layer exposed (Chronic) necrotic ulcer dorsum right long finger at DIP joint Assessment: 1. Nonhealing diabetic abscess ulcer dorsum right long finger at DIP joint. 2. Diabetes mellitus. 3. History of recent frostbite. 4. Raynaud's disease. 5. Peripheral vascular disease. 6. Smoker. 7. Osteomyelitis. Plan: The ulcer is almost healed. Will stop the Silver dressing and start Collagen Hydrogel dressing changes daily. He is on Cefazolin IV until 05/09/20 for operative cultures showing Staphylococcus aureus in the soft tissue and bone. Pathology was positive for osteomyelitis. Prealbumin from 03/27/20 was 18.8. Encourage nutritional supplementation with protein to help the healing process. HgbA1c from 03/28/20 was 6.1. Followup 2 weeks. [id number]: [id number] Global Visit - ICD-10 - Z48.89, L98.492, L02.511, E11.9, M86.9, I73.9, I73.00, Z91.89, F17.200
[2020-05-07 10:53] VITALS: BP 112/66; PULSE 84; RESP 20; TEMP 36.3; BMI 30.7
--- NOTE | 2020-05-07 14:28 | PN.PCM_ITS ---
(1) Type 2 diabetes mellitus with diabetic polyneuropathy Status: Chronic Code(s): E11.42 - Type 2 diabetes mellitus with diabetic polyneuropathy (2) Ulcer of left foot with fat layer exposed Status: Resolved Code(s): L97.522 - Non-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ulcer of other part of left foot with fat layer exposed (3) Chronic ulcer of left foot with necrosis of muscle Status: Resolved Code(s): L97.523 - Non-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ulcer of other part of left foot with necrosis of muscle Comment: capsular layer is in the wound bed. grade 3 treated medically (4) Other hereditary and idiopathic neuropathies Status: Chronic Code(s): G60.8 - Other hereditary and idiopathic neuropathies (5) Tinea unguium Status: Chronic Code(s): B35.1 - Tinea unguium Type of Wound Date of Service: 05/07/20 Chief Complaint: Left foot ulcer History of Wound: This 60-year-old male returns to the wound healing center today for a left foot ulcer. He denies fever, chill, nausea, vomiting. He denies redness or odor. He denies drainage and thinks his ulcer to his left foot has healed. His toenails are long and thick and he is concerned that these are starting to catch on his socks and cause discomfort. He is concerned he will develop a wound. He asked for help safely trimming his toenails today when she is unable to safely perform on his own (bilateral 3, 4, 5 and left 1 and 2). He has neuropathy with ongoing rest paresthesias, edema, history of ulcers and infections. He denies current claudication today. Progress of Wound: Healed left foot - Physical Exam Vital Signs Temp Pulse Resp BP Pulse Ox 97.3 F L 84 20 H 112/66 100 05/07/20 10:53 05/07/20 10:53 05/07/20 10:53 05/07/20 10:53 04/16/20 00:25 General: Alert, Oriented x3, Cooperative, No apparent distress HEENT: Atraumatic Extremities: No cyanosis, Capillary Refill Less than 3 Seconds, No Calf Tenderness, Diminished Peripheral Pulses, Edema - Mild Skin: Ulcer/ Wound - Full epithelialization is noted in his ulcer site is healed. There is no area of new skin discontinuity, erythema, string, odor, infection necrosis or maceration. His skin in general to lower extremities is atrophic and hairless. His toenails are elongated, thick, dystrophic and with subungual debris and uncomfortable pressure right 3, 4, 5 and left 1, 2, 3, 4, 5 Wound Measurements and Assessment - Nurse 1 - General Ulcer Measurement Start: 04/16/20 15:45 Freq: Status: Active Protocol: Activity Type Activity Date Activity User E-Sign Co-Sign Detail Recorded Client Recorded Date Recorded By Document 05/05/20 12:01 [facility] [id number] 05/05/20 12:06 [facility] Document 05/07/20 11:09 [id number] 05/07/20 11:09 05/05/20 05/07/20 12:01 11:09 Wound Center Nurse 1 [Ulcer Assessment] #13 R 3rd finger long finger -Combined with other wound No -Current Size (cm) - Length 0.1 -Current Size (cm) - Width 1 -Current Size (cm) - Depth 0.3 -Total Square Cm 0.1 -Photo Taken No -Epithelialization None Present -Tunneling No -Undermining/Tunneling No -Circular Undermining No -Exudate Amt Small -Exudate Type Serosanguineous -Wound Margin Distinct, Outline Attached -Granulation Amt None Present (0 %) -Slough/Fibrin Yes -Necrosis Amt Large (67-100%) -Necrotic Tissue Type Adherent Slough -Texture (Mechelle-wound Skin Appearance) Assessed, Scarring -Moisture (Mechelle-wound Skin Appearance Assessed,Dry/ ) Scaly -Color (Mechelle-wound Skin Appearance) Assessed -Temperature (Mechelle-wound Skin No Abnormality Appearance) (Pt Warm) -Tenderness on Palpation (Mechelle-wound No Skin Appearance) -Ulcer Cleansing Rinsed/ Irrigated with Saline -Foul Odor after Cleansing No -Anesthetic Used 5% Lidocaine Gel [Edema Assessment] -Lower Limb Edema Present NA - Nurse 2 - General Ulcer CM Notes Start: 04/16/20 15:45 Freq: Status: Active Protocol: Activity Type Activity Date Activity User E-Sign Co-Sign Detail Recorded Client Recorded Date Recorded By Document 05/05/20 12:09 [id number] 05/05/20 12:14 Document 05/07/20 11:09 [id number] 05/07/20 11:09 05/05/20 05/07/20 12:09 11:09 Wound Center Nurse 2 [Procedure/Treatment] #13 R 3rd finger long finger -Time 12:10 -Correct Patient Yes -Correct Side, Site, Position Yes -Correct Procedure Yes -Procedure Performed Yes -Type of Procedure Debridement -Clinical Debridement Subcutaneous -Post Debridement Size (cm) - Length 0.2 -Post Debridement Size (cm) - Width 1 -Post Debridement Size (cm) - Depth 0.3 -Total Square (cm) 0.2 -Wound/Ulcer Outcome Not Healed -Ulcer Cleansing Rinsed/ Irrigated with Saline -Foul Odor after Cleansing No -Bioengineered Tissue No -Bleeding Controlled with Pressure -Offloading No -Treatment Response Procedure Tolerated Well [See Physician Procedure note for Specifics] Pain Scale: 0-10 Numeric [Pain] -Is Patient Pain Free? Yes Yes Debridement Note Post-Debridement Measurements/Treatment WC - Nurse 2 - General Ulcer CM Notes Start: 04/16/20 15:45 Freq: Status: Active Protocol: Activity Type Activity Date Activity User E-Sign Co-Sign Detail Recorded Client Recorded Date Recorded By Document 04/16/20 16:13 [id number] 04/16/20 16:14 Document 04/22/20 07:16 PL [id number] 04/22/20 07:17 PL Document 04/23/20 15:47 PL [id number] 04/23/20 15:47 PL Document 04/28/20 15:01 [id number] 04/28/20 15:03 Document 05/05/20 12:09 [id number] 05/05/20 12:14 Document 05/07/20 11:09 [id number] 05/07/20 11:09 04/16/20 04/22/20 04/23/20 16:13 07:16 15:47 Wound Center Nurse 2 #11 L Foot Plantar -Time 16:13 15:45 -Correct Patient Yes Yes -Correct Side, Site, Position Yes Yes -Correct Procedure Yes Yes -Procedure Performed Yes Yes -Type of Procedure Debridement Debridement -Clinical Debridement Subcutaneous Subcutaneous -Post Debridement Size (cm) - Length 1.0 0.4 -Post Debridement Size (cm) - Width 0.7 0.3 -Post Debridement Size (cm) - Depth 0.2 0.2 -Total Square (cm) 0.70 0.12 -Wound/Ulcer Outcome Not Healed Not Healed -Ulcer Cleansing Rinsed/ Rinsed/ Irrigated with Irrigated with Saline Saline -Foul Odor after Cleansing No No -Bioengineered Tissue No -Bleeding Controlled with Pressure Pressure -Offloading Yes -Type of Offloading Camwalker Camwalker -Treatment Response Procedure Procedure Tolerated Well Tolerated Well #13 R 3rd finger long finger -Time 14:19 -Correct Patient Yes -Correct Side, Site, Position Yes -Correct Procedure Yes -Procedure Performed Yes -Type of Procedure Debridement -Clinical Debridement Subcutaneous -Post Debridement Size (cm) - Length 0.6 -Post Debridement Size (cm) - Width 1.5 -Post Debridement Size (cm) - Depth 0.2 -Total Square (cm) 0.90 -Wound/Ulcer Outcome Not Healed -Ulcer Cleansing Rinsed/ Irrigated with Saline -Foul Odor after Cleansing No -Bioengineered Tissue -Bleeding Controlled with Pressure -Offloading -Treatment Response Procedure Tolerated Well Pain Scale: 0-10 Numeric Is Patient Pain Free? Yes Yes Yes 04/28/20 05/05/20 05/07/20 15:01 12:09 11:09 Wound Center Nurse 2 #11 L Foot Plantar -Time -Correct Patient -Correct Side, Site, Position -Correct Procedure -Procedure Performed -Type of Procedure -Clinical Debridement -Post Debridement Size (cm) - Length -Post Debridement Size (cm) - Width -Post Debridement Size (cm) - Depth -Total Square (cm) -Wound/Ulcer Outcome -Ulcer Cleansing -Foul Odor after Cleansing -Bioengineered Tissue -Bleeding Controlled with -Offloading -Type of Offloading -Treatment Response #13 R 3rd finger long finger -Time 12:10 -Correct Patient Yes Yes -Correct Side, Site, Position Yes Yes -Correct Procedure Yes Yes -Procedure Performed Yes Yes -Type of Procedure Debridement Debridement -Clinical Debridement Subcutaneous Subcutaneous -Post Debridement Size (cm) - Length 0.8 0.2 -Post Debridement Size (cm) - Width 1.5 1 -Post Debridement Size (cm) - Depth 0.4 0.3 -Total Square (cm) 1.20 0.2 -Wound/Ulcer Outcome Not Healed Not Healed -Ulcer Cleansing Rinsed/ Rinsed/ Irrigated with Irrigated with Saline Saline -Foul Odor after Cleansing No No -Bioengineered Tissue No No -Bleeding Controlled with Pressure Pressure -Offloading No No -Treatment Response Procedure Procedure Tolerated Well Tolerated Well Pain Scale: 0-10 Numeric Is Patient Pain Free? Yes Yes Yes No debridement was completed today Assessment/Plan Assessment: Left foot ulcer with capsule/muscle tissue exposed healed today). Left foot deformities including tailor bunion and hammertoe. Peripheral vascular disease. Diabetes with polyneuropathy. Malnutrition. Delayed healing. Raynaud's disease. Finger ulcer management by additional wound care center provider(s). Elongated thick toenails consistent with tinea unguium versus onychauxis Plan: I reviewed and discussed his case today. Debridement was not performed because the ulcer site is healed today. To discontinue dressing care. To monitor very close to return of ulcer and infection which neither is noted today. To keep skin integrity intact by moisturizing a regular basis. To continue with offloading CAM Walker boot to allow the skin to remodel. He plan to do this for a month and I agree. He understands he is very high risk for continued limb loss, ulcer return, and recurrence of infections. He is discharged from my wound care center clinic at this time and will follow up with the foot and ankle center as needed for any other lower extremity issue. He will continue to follow-up with the wound healing center for finger ulcer management. His toenails were also debrided today bilateral 3, 4, 5 and left 1, 2. He is unable to safely trim these on his own and asked for help today. They were trimmed in length and thickness to reduce fungal load, decreased pressure and prevent ulceration at the toenail and distal toe sites. He tolerated this well and this was performed with a clean nail nipper. It is noted that his hemoglobin A1c was 6.5%. He is previously known to vascular specialist and I am concerned because his ulcer site has had significant delays in healing and is now recurrent. He was advised to follow-up with his vascular surgeon, Dr. Pena as scheduled. He had recent updated vascular studies performed and Dr. Pena is considering additional intervention. I recommend proceeding if there are options available. He has done well with his course of hyperbaric oxygen therapy when compliant. I answered all of his questions.
[2020-05-12 11:50] VITALS: BP 126/76; PULSE 82; RESP 20; TEMP 36.6; BMI 30.7
--- NOTE | 2020-05-12 12:41 | WC ---
PICC d/c'd per policy and order. pt tolerated well. site w/ some redness, localized swelling. will update brenden rey.
--- NOTE | 2020-05-12 13:20 | PN.PCM_ITS ---
(1) Skin ulcer of finger with fat layer exposed Status: Chronic Current Visit: Yes Code(s): L98.492 - Non-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ulcer of skin of other sites with fat layer exposed Comment: necrotic ulcer dorsum right long finger at DIP joint (2) Finger osteomyelitis, right Status: Chronic Current Visit: Yes Code(s): M86.9 - Osteomyelitis, unspecified (3) Wound of right leg Status: Acute Current Visit: Yes Code(s): S81.801A - Unspecified open wound, right lower leg, initial encounter (4) Type 2 diabetes mellitus with diabetic polyneuropathy Status: Chronic Current Visit: Yes Code(s): E11.42 - Type 2 diabetes mellitus with diabetic polyneuropathy (5) History of frostbite Status: Chronic Current Visit: Yes Code(s): Z91.89 - Other specified personal risk factors, not elsewhere classified Comment: left long finger, right index finger, right long finger, and right ring finger Type of Wound Date of Service: 05/12/20 Chief Complaint: Nonhealing diabetic abscess ulcer dorsum right long finger at DIP joint with osteomyelitis. History of Wound: Surgery 03/28/20 - Surgical preparation dorsal aspect right long finger at DIP joint with incision and drainage and excisional debridement nonhealing infected diabetic abscess ulcer and partial ostectomy proximal distal phalanx and distal middle phalanx for osteomyelitis. Right long finger ulcer is healed today. He has new opened area on right leg. Wound care to right leg wound is collagen hydrogel. His foot ulcer is now healed. Operative cultures - Staphylococcus aureus in the soft tissue and bone. He was placed on Cefazolin IV until 05/09/20. Pathology - acute osteomyelitis. Prealbumin from 03/27/20 was 18.8. Encourage nutritional supplementation with protein to help the healing process. HgbA1c from 03/28/[address] right hand on 03/26/20 showed osseous destruction with erosive change of the third middle and distal phalanges consistent with osteomyelitis versus osteolysis.. Today he denies fever. His appetite is ok. Progress of Wound: Healed left foot - Physical Exam Vital Signs Temp Pulse Resp BP Pulse Ox 97.8 F 82 20 H 126/76 H 100 05/12/20 11:50 05/12/20 11:50 05/12/20 11:50 05/12/20 11:50 04/16/20 00:25 General: Alert, Oriented x3, Cooperative HEENT: Atraumatic Oral: Moist Mucosa Lungs: Normal air movement Cardiovascular: Regular rate Extremities: Capillary Refill Less than 3 Seconds Skin: Ulcer/ Wound - Right long finger ulcer is healed. New right leg traumatic wound with scabbing slough around the edges that was removed. Wound Measurements and Assessment - Nurse 1 - General Ulcer Measurement Start: 04/16/20 15:45 Freq: Status: Active Protocol: Activity Type Activity Date Activity User E-Sign Co-Sign Detail Recorded Client Recorded Date Recorded By Document 05/12/20 11:50 DL [id number] 05/12/20 11:57 DL 05/12/20 11:50 Wound Center Nurse 1 [Ulcer Assessment] #13 R 3rd finger long finger -Current Size (cm) - Length 0.1 -Current Size (cm) - Width 0.1 -Current Size (cm) - Depth 0.1 -Total Square Cm 0.01 -Photo Taken No -Exudate Amt None Present -Wound Margin Flat & Intact -Granulation Amt Large (67-100%) -Granulation Quality [place] -Necrosis Amt Small (1-33%) -Necrotic Tissue Type Adherent Slough -Structure Exposed N/A -Texture (Mechelle-wound Skin Appearance) Scarring -Moisture (Mechelle-wound Skin Appearance Maceration ) -Color (Mechelle-wound Skin Appearance) No Abnormality -Temperature (Mechelle-wound Skin No Abnormality Appearance) (Pt Warm) -Tenderness on Palpation (Mechelle-wound No Skin Appearance) -Ulcer Cleansing Rinsed/ Irrigated with Saline -Foul Odor after Cleansing No -Anesthetic Used 4% Lidocaine Solution - Nurse 2 - General Ulcer CM Notes Start: 04/16/20 15:45 Freq: Status: Active Protocol: Activity Type Activity Date Activity User E-Sign Co-Sign Detail Recorded Client Recorded Date Recorded By Document 05/12/20 12:18 MARJORIE [id number] 05/12/20 12:23 05/12/20 12:18 Wound Center Nurse 2 [Procedure/Treatment] 15-right newell -Time 12:23 -Correct Patient Yes -Correct Side, Site, Position Yes -Correct Procedure Yes -Procedure Performed Yes -Type of Procedure Debridement -Clinical Debridement Selective -Post Debridement Size (cm) - Length 0.4 -Post Debridement Size (cm) - Width 0.5 -Post Debridement Size (cm) - Depth 0.1 -Total Square (cm) 0.20 -Wound/Ulcer Outcome Not Healed -Ulcer Cleansing Rinsed/ Irrigated with Saline -Foul Odor after Cleansing No -Bioengineered Tissue No -Bleeding Controlled with Pressure -Offloading No -Treatment Response Procedure Tolerated Well #13 R 3rd finger long finger -Correct Patient No -Correct Side, Site, Position No -Correct Procedure No -Procedure Performed No -Post Debridement Size (cm) - Length 0 -Post Debridement Size (cm) - Width 0 -Post Debridement Size (cm) - Depth 0 -Total Square (cm) 0 -Wound/Ulcer Outcome Healed- Epithelialized [See Physician Procedure note for Specifics] Pain Scale: 0-10 Numeric [Pain] -Is Patient Pain Free? Yes Musculoskeletal: No Tenderness to Palpation of Joints or Extremities Neurological: Cranial nerves II-XII grossly intact Psych/Mental Status: Normal Affect, Appropriate Debridement Note Post-Debridement Measurements/Treatment WC - Nurse 2 - General Ulcer CM Notes Start: 04/16/20 15:45 Freq: Status: Active Protocol: Activity Type Activity Date Activity User E-Sign Co-Sign Detail Recorded Client Recorded Date Recorded By Document 04/16/20 16:13 [id number] 04/16/20 16:14 Document 04/22/20 07:16 PL [id number] 04/22/20 07:17 PL Document 04/23/20 15:47 PL [id number] 04/23/20 15:47 Document 04/28/20 15:01 [id number] 04/28/20 15:03 Document 05/05/20 12:09 [id number] 05/05/20 12:14 Document 05/07/20 11:09 [id number] 05/07/20 11:09 Document 05/12/20 12:18 [id number] 05/12/20 12:23 04/16/20 04/22/20 04/23/20 16:13 07:16 15:47 Wound Center Nurse 2 15-right newell -Time -Correct Patient -Correct Side, Site, Position -Correct Procedure -Procedure Performed -Type of Procedure -Clinical Debridement -Post Debridement Size (cm) - Length -Post Debridement Size (cm) - Width -Post Debridement Size (cm) - Depth -Total Square (cm) -Wound/Ulcer Outcome -Ulcer Cleansing -Foul Odor after Cleansing -Bioengineered Tissue -Bleeding Controlled with -Offloading -Treatment Response #11 L Foot Plantar -Time 16:13 15:45 -Correct Patient Yes Yes -Correct Side, Site, Position Yes Yes -Correct Procedure Yes Yes -Procedure Performed Yes Yes -Type of Procedure Debridement Debridement -Clinical Debridement Subcutaneous Subcutaneous -Post Debridement Size (cm) - Length 1.0 0.4 -Post Debridement Size (cm) - Width 0.7 0.3 -Post Debridement Size (cm) - Depth 0.2 0.2 -Total Square (cm) 0.70 0.12 -Wound/Ulcer Outcome Not Healed Not Healed -Ulcer Cleansing Rinsed/ Rinsed/ Irrigated with Irrigated with Saline Saline -Foul Odor after Cleansing No No -Bioengineered Tissue No -Bleeding Controlled with Pressure Pressure -Offloading Yes -Type of Offloading Camwalker Camwalker -Treatment Response Procedure Procedure Tolerated Well Tolerated Well #13 R 3rd finger long finger -Time 14:19 -Correct Patient Yes -Correct Side, Site, Position Yes -Correct Procedure Yes -Procedure Performed Yes -Type of Procedure Debridement -Clinical Debridement Subcutaneous -Post Debridement Size (cm) - Length 0.6 -Post Debridement Size (cm) - Width 1.5 -Post Debridement Size (cm) - Depth 0.2 -Total Square (cm) 0.90 -Wound/Ulcer Outcome Not Healed -Ulcer Cleansing Rinsed/ Irrigated with Saline -Foul Odor after Cleansing No -Bioengineered Tissue -Bleeding Controlled with Pressure -Offloading -Treatment Response Procedure Tolerated Well Pain Scale: 0-10 Numeric Is Patient Pain Free? Yes Yes Yes 04/28/20 05/05/20 05/07/20 15:01 12:09 11:09 Wound Center Nurse 2 15-right newell -Time -Correct Patient -Correct Side, Site, Position -Correct Procedure -Procedure Performed -Type of Procedure -Clinical Debridement -Post Debridement Size (cm) - Length -Post Debridement Size (cm) - Width -Post Debridement Size (cm) - Depth -Total Square (cm) -Wound/Ulcer Outcome -Ulcer Cleansing -Foul Odor after Cleansing -Bioengineered Tissue -Bleeding Controlled with -Offloading -Treatment Response #11 L Foot Plantar -Time -Correct Patient -Correct Side, Site, Position -Correct Procedure -Procedure Performed -Type of Procedure -Clinical Debridement -Post Debridement Size (cm) - Length -Post Debridement Size (cm) - Width -Post Debridement Size (cm) - Depth -Total Square (cm) -Wound/Ulcer Outcome -Ulcer Cleansing -Foul Odor after Cleansing -Bioengineered Tissue -Bleeding Controlled with -Offloading -Type of Offloading -Treatment Response #13 R 3rd finger long finger -Time 12:10 -Correct Patient Yes Yes -Correct Side, Site, Position Yes Yes -Correct Procedure Yes Yes -Procedure Performed Yes Yes -Type of Procedure Debridement Debridement -Clinical Debridement Subcutaneous Subcutaneous -Post Debridement Size (cm) - Length 0.8 0.2 -Post Debridement Size (cm) - Width 1.5 1 -Post Debridement Size (cm) - Depth 0.4 0.3 -Total Square (cm) 1.20 0.2 -Wound/Ulcer Outcome Not Healed Not Healed -Ulcer Cleansing Rinsed/ Rinsed/ Irrigated with Irrigated with Saline Saline -Foul Odor after Cleansing No No -Bioengineered Tissue No No -Bleeding Controlled with Pressure Pressure -Offloading No No -Treatment Response Procedure Procedure Tolerated Well Tolerated Well Pain Scale: 0-10 Numeric Is Patient Pain Free? Yes Yes Yes 05/12/20 12:18 Wound Center Nurse 2 15-right newell -Time 12:23 -Correct Patient Yes -Correct Side, Site, Position Yes -Correct Procedure Yes -Procedure Performed Yes -Type of Procedure Debridement -Clinical Debridement Selective -Post Debridement Size (cm) - Length 0.4 -Post Debridement Size (cm) - Width 0.5 -Post Debridement Size (cm) - Depth 0.1 -Total Square (cm) 0.20 -Wound/Ulcer Outcome Not Healed -Ulcer Cleansing Rinsed/ Irrigated with Saline -Foul Odor after Cleansing No -Bioengineered Tissue No -Bleeding Controlled with Pressure -Offloading No -Treatment Response Procedure Tolerated Well #11 L Foot Plantar -Time -Correct Patient -Correct Side, Site, Position -Correct Procedure -Procedure Performed -Type of Procedure -Clinical Debridement -Post Debridement Size (cm) - Length -Post Debridement Size (cm) - Width -Post Debridement Size (cm) - Depth -Total Square (cm) -Wound/Ulcer Outcome -Ulcer Cleansing -Foul Odor after Cleansing -Bioengineered Tissue -Bleeding Controlled with -Offloading -Type of Offloading -Treatment Response #13 R 3rd finger long finger -Time -Correct Patient No -Correct Side, Site, Position No -Correct Procedure No -Procedure Performed No -Type of Procedure -Clinical Debridement -Post Debridement Size (cm) - Length 0 -Post Debridement Size (cm) - Width 0 -Post Debridement Size (cm) - Depth 0 -Total Square (cm) 0 -Wound/Ulcer Outcome Healed- Epithelialized -Ulcer Cleansing -Foul Odor after Cleansing -Bioengineered Tissue -Bleeding Controlled with -Offloading -Treatment Response Pain Scale: 0-10 Numeric Is Patient Pain Free? Yes Wound debrided: traumatic leg wound Laterality: Right Type of Debridement: Selective debridement Anesthesia Used: 4% Lidocaine Solution Depth: Down to and including healthy tissue, in the subcutaneous layer Percentage of wound debrided: 100 Instrument Used: 3mm curette Tissue Removed: Slough and scabbing Severity: Limited To Skin Breakdown Amount of bleeding with debridement: Mild Bleeding Controlled with: Pressure Patient tolerated procedure well Assessment/Plan Active Problems (Last Reviewed 05/12/20 @ 13:19 by Linda Leon) Wound of right leg (Acute) Finger osteomyelitis, right (Chronic) Type 2 diabetes mellitus with diabetic polyneuropathy (Chronic) History of frostbite (Chronic) left long finger, right index finger, right long finger, and right ring finger Skin ulcer of finger with fat layer exposed (Chronic) necrotic ulcer dorsum right long finger at DIP joint Assessment: 1. Nonhealing diabetic abscess ulcer dorsum right long finger at DIP joint. 2. Diabetes mellitus. 3. History of recent frostbite. 4. Raynaud's disease. 5. Peripheral vascular disease. 6. Smoker. 7. Osteomyelitis. Plan: The right long finger is healed today He has new traumatic wound on his right leg. Wound care to that will be collagen hydrogel daily. He completed Cefazolin IV on 05/09/20 for operative cultures showing Staphylococcus aureus in the soft tissue and bone. PICC line pulled today. Pathology was positive for os teomyelitis. Prealbumin from 03/27/20 was 18.8. Encourage nutritional supplementation with protein to help the healing process. HgbA1c from 03/28/20 was 6.1. Followup 2 weeks to re evaluate the right leg wound. Right leg wound is selective debridement [id number], the right long finger is post op global [id number]
== END 2020-05-16 23:59 ==
LOC: WC 11:30
PROVIDERS: Family Provider Student in an Organized Health Care Education/Training Program; PCP Student in an Organized Health Care Education/Training Program; Referring Provider Podiatrist; Visit Provider Podiatrist
DX: E11.621 Type 2 diabetes mellitus with foot ulcer (principal); E11.42 Type 2 diabetes mellitus with diabetic polyneuropathy; L97.522 Non-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ulcer of other part of left foot with fat layer exposed; I73.00 Raynaud's syndrome without gangrene; I25.10 Atherosclerotic heart disease of native coronary artery without angina pectoris; I25.2 Old myocardial infarction; Z95.5 Presence of coronary angioplasty implant and graft; E11.69 Type 2 diabetes mellitus with other specified complication; M86.8X4 Other osteomyelitis, hand; B95.61 Methicillin susceptible Staphylococcus aureus infection as the cause of diseases classified elsewhere
CPT/HCPCS: 11042; 11721; 80048; 82962; 85027; 85652; 97597; 99183; 99212; 99213; G0277; G0463

== ENCOUNTER → 2020-05-19 14:58 | Outpatient (CLI) | payer MEDICAID, SELFPAY ==
[2020-05-07 10:53] VITALS: BMI 30.7
[2020-05-12 13:28] VITALS: BMI 30.7
--- NOTE | 2020-05-19 14:59 | ECHOCS_ITS ---
Reason For Study: R/O ENDOCARDITIS Procedure This was a 2D Doppler, Color Flow transthoracic echocardiogram. The study was technically difficult. Contrast injection was performed. Exam performed in department. Left Ventricle Normal LV size. Left ventricular systolic function is normal. The estimated ejection fraction is 55 %. Diastolic function is indeterminate. No regional wall motion abnormalities noted. Right Ventricle Normal RV size. Normal systolic function. Atria Normal left atrium. Normal right atrium. No doppler evidence for ASD. Mitral Valve There is mild to moderate mitral annular calcification. Extension of the mitral annular calcification onto the base of the posterior mitral valve leaflet. Mild focal mitral valve calcification of the anterior leaflet. Trivial mitral valve insufficiency. Tricuspid Valve Normal tricuspid valve. Trivial tricuspid valve insufficiency. Right ventricular systolic pressure estimated to be 26 mmHg. Aortic Valve Trisinus/trileaflet aortic valve. Mild focal aortic valve calcification. Pulmonic Valve The pulmonic valve is not well visualized. Trivial pulmonic valve insufficiency. Great Vessels Normal sized aortic root. Calcified aortic root. Pericardium/Pleural No pericardial effusion. Medication 22 gauge I.V. with prn adaptor inserted into right arm. Diluted definity 2.0ml given slow IV push to enhance endocardial definition. MMode/2D Measurements & Calculations LVIDd: 5.1 cm IVSd: 0.98 cm Ao root diam: 3.1 cm LVIDs: 3.9 cm LVPWd: 0.97 cm RVDd: 4.4 cm FS: 22.7 % LAV(MOD-bp): 68.0 ml LVAd ap4: 36.9 cm2 SV(MOD-sp4): 54.2 ml LAV(MOD-bp) Indexed: 32.3 ml/m2 EDV(MOD-sp4): 124.3 ml LAV(MOD-sp2): 68.9 ml EDV(sp4-el): 130.2 ml LAV(MOD-sp4): 66.9 ml LVAs ap4: 25.2 cm2 ESV(MOD-sp4): 70.1 ml ESV(sp4-el): 71.0 ml EF(MOD-sp4): 43.6 % EF(sp4-el): 45.4 % SV(sp4-el): 59.2 ml LA A4 area: 21.8 cm2 LA dimension(2D): 4.5 cm RA A4 area: 11.8 cm2 Time Measurements MV dec time: 0.22 sec Doppler Measurements & Calculations MV E max bucky: 103.5 cm/sec Lat Peak E' Bucky: 8.7 cm/sec Med Peak E' Bucky: 3.6 cm/sec MV A max bucky: 86.5 cm/sec E/E' lat: 11.9 E/E' med: 28.6 MV E/A: 1.2 MV V2 max: 98.5 cm/sec Ao V2 max: 172.2 cm/sec LV V1 max: 112.2 cm/sec MV max P.9 mmHg Ao max P.9 mmHg LV V1 max P.0 mmHg MV V2 mean: 76.8 cm/sec Ao V2 mean: 121.4 cm/sec LV V1 mean P.9 mmHg MV mean P.5 mmHg Ao mean P.6 mmHg LV V1 mean: 80.7 cm/sec MV V2 VTI: 25.0 cm Ao V2 VTI: 34.7 cm LV V1 VTI: 23.2 cm PA V2 max: 112.8 cm/sec TR max bucky: 239.9 cm/sec MV P1/2t-pr_phl: 72.1 msec TR max P.0 mmHg Interpretation Summary The study was technically difficult. Contrast injection was performed. Left ventricular systolic function is normal. The estimated ejection fraction is 55 %. There is mild to moderate mitral annular calcification. Extension of the mitral annular calcification onto the base of the posterior mitral valve leaflet. Mild focal mitral valve calcification of the anterior leaflet. Trivial mitral valve insufficiency. Trivial tricuspid valve insufficiency. Mild focal aortic valve calcification. Trivial pulmonic valve insufficiency. Calcified aortic root. Right ventricular systolic pressure estimated to be 26 mmHg. Diastolic function is indeterminate. Ordering Physician: Tommie Jean/Mat Ring Referring Physician: MARIA ISABEL GARCIA Performed By: Mirta ROCHE RVT, Carrie and Student
== END ==
PROVIDERS: PCP Student in an Organized Health Care Education/Training Program; Referring Provider Nurse Practitioner Family; Visit Provider Nurse Practitioner Family
DX: I25.10 Atherosclerotic heart disease of native coronary artery without angina pectoris (principal); I10 Essential (primary) hypertension; T81.89XA Other complications of procedures, not elsewhere classified, initial encounter; M86.9 Osteomyelitis, unspecified; Z95.1 Presence of aortocoronary bypass graft
CPT/HCPCS: 93306; Q9957; A4216; C8929

== ENCOUNTER 2020-05-26 09:10 | Outpatient (RCR) | payer MEDICAID, SELFPAY ==
[2020-05-12 13:28] VITALS: BMI 30.7
[2020-05-26 10:41] VITALS: BP 161/94; PULSE 91; RESP 20; TEMP 36.8; BMI 30.7
--- NOTE | 2020-05-26 15:47 | PN.PCM_ITS ---
(1) Wound of right leg Status: Acute Code(s): S81.801A - Unspecified open wound, right lower leg, initial encounter (2) Finger osteomyelitis, right Status: Chronic Code(s): M86.9 - Osteomyelitis, unspecified (3) Type 2 diabetes mellitus with diabetic polyneuropathy Status: Chronic Code(s): E11.42 - Type 2 diabetes mellitus with diabetic polyneuropathy (4) Peripheral vascular disease Status: Chronic Code(s): I73.9 - Peripheral vascular disease, unspecified Type of Wound Date of Service: 05/26/20 Chief Complaint: Nonhealing diabetic abscess ulcer dorsum right long finger at DIP joint with osteomyelitis. History of Wound: Surgery 03/28/20 - Surgical preparation dorsal aspect right long finger at DIP joint with incision and drainage and excisional debridement nonhealing infected diabetic abscess ulcer and partial ostectomy proximal distal phalanx and distal middle phalanx for osteomyelitis. Right long finger ulcer remains healed. The new opened area on right leg is healed today. His foot ulcer is now healed. Operative cultures - Staphylococcus aureus in the soft tissue and bone. He was placed on Cefazolin IV until 05/09/20. Pathology - acute osteomyelitis. Prealbumin from 03/27/20 was 18.8. Encourage nutritional supplementation with protein to help the healing process. HgbA1c from 03/28/[address] right hand on 03/26/20 showed osseous destruction with erosive change of the third middle and distal phalanges consistent with osteomyelitis versus osteolysis. Today he denies fever. His appetite is ok. Progress of Wound: All wounds and ulcers are healed today. - Physical Exam Vital Signs Temp Pulse Resp BP 98.3 F 91 20 H 161/94 H 05/26/20 10:41 05/26/20 10:41 05/26/20 10:41 05/26/20 10:41 General: Alert, Oriented x3, Cooperative HEENT: Atraumatic Oral: Moist Mucosa Lungs: Normal air movement Cardiovascular: Regular rate Extremities: Capillary Refill Less than 3 Seconds Skin: Ulcer/ Wound - Right long finger remains healed, right lower anterior leg wound is healed today. Wound Measurements and Assessment WC - Nurse 1 - General Ulcer Measurement Start: 05/26/20 10:41 Freq: Status: Active Protocol: Activity Type Activity Date Activity User E-Sign Co-Sign Detail Recorded Client Recorded Date Recorded By Document 05/26/20 10:41 DELL [id number] 05/26/20 10:46 DL 05/26/20 10:41 Wound Center Nurse 1 [Ulcer Assessment] 15-right newell -Current Size (cm) - Length 0 -Current Size (cm) - Width 0 -Current Size (cm) - Depth 0 -Total Square Cm 0 -Photo Taken Yes -Exudate Amt None Present -Wound Margin Flat & Intact -Granulation Amt Large (67-100%) -Granulation Quality [place] -Necrosis Amt None Present (0 %) -Structure Exposed N/A -Texture ([place]-wound Skin Appearance) Scarring -Moisture ([place]helle-wound Skin Appearance No Abnormality ) -Color ([place]helle-wound Skin Appearance) No Abnormality -Temperature ([place]-wound Skin No Abnormality Appearance) (Pt Warm) -Tenderness on Palpation ([place]-wound No Skin Appearance) -Ulcer Cleansing Rinsed/ Irrigated with Saline -Foul Odor after Cleansing No WC - Nurse 2 - General Ulcer CM Notes Start: 05/26/20 10:41 Freq: Status: Active Protocol: Activity Type Activity Date Activity User E-Sign Co-Sign Detail Recorded Client Recorded Date Recorded By Document 05/26/20 11:17 MARJORIE [id number] 05/26/20 11:18 MARJORIE 05/26/20 11:17 Wound Center Nurse 2 [Procedure/Treatment] -Correct Patient No -Correct Side, Site, Position No -Correct Procedure No -Procedure Performed No -Post Debridement Size (cm) - Length 0 -Post Debridement Size (cm) - Width 0 -Post Debridement Size (cm) - Depth 0 -Total Square (cm) 0 -Wound/Ulcer Outcome Healed- Epithelialized [See Physician Procedure note for Specifics] Pain Scale: 0-10 Numeric [Pain] -Is Patient Pain Free? Yes Musculoskeletal: No Tenderness to Palpation of Joints or Extremities Neurological: Neuro grossly intact Psych/Mental Status: Normal Affect, Appropriate Debridement Note Post-Debridement Measurements/Treatment WC - Nurse 2 - General Ulcer CM Notes Start: 05/26/20 10:41 Freq: Status: Active Protocol: Activity Type Activity Date Activity User E-Sign Co-Sign Detail Recorded Client Recorded Date Recorded By Document 05/26/20 11:17 MARJORIE [id number] 05/26/20 11:18 MARJORIE 05/26/20 11:17 Wound Center Nurse 2 15-right newell -Correct Patient No -Correct Side, Site, Position No -Correct Procedure No -Procedure Performed No -Post Debridement Size (cm) - Length 0 -Post Debridement Size (cm) - Width 0 -Post Debridement Size (cm) - Depth 0 -Total Square (cm) 0 -Wound/Ulcer Outcome Healed- Epithelialized Pain Scale: 0-10 Numeric Is Patient Pain Free? Yes No debridement was completed today Assessment/Plan Assessment: 1. Nonhealing diabetic abscess ulcer dorsum right long finger at DIP joint. 2. Diabetes mellitus. 3. History of recent frostbite. 4. Raynaud's disease. 5. Peripheral vascular disease. 6. Smoker. 7. Osteomyelitis. Plan: The right long finger remains healed. The new traumatic wound on his right leg is healed today. He completed Cefazolin IV on 05/09/20 for operative cultures showing Staphylococcus aureus in the soft tissue and bone. PICC line pulled today. Pathology was positive for osteomyelitis. Prealbumin from 03/27/20 was 18.8. Encourage nutritional supplementation with protein to help the healing process. HgbA1c from 03/28/20 was 6.1. Discharged from the wound center. Follow up as needed. [id number]: [id number] Global Visit
== END 2020-05-27 13:10 | disposition home or self-care (01) ==
LOC: WC 09:10
PROVIDERS: PCP Student in an Organized Health Care Education/Training Program; Visit Provider Nurse Practitioner Family
DX: Z09 Encounter for follow-up examination after completed treatment for conditions other than malignant neoplasm (principal); E11.42 Type 2 diabetes mellitus with diabetic polyneuropathy; E11.51 Type 2 diabetes mellitus with diabetic peripheral angiopathy without gangrene; I73.00 Raynaud's syndrome without gangrene; Z79.4 Long term (current) use of insulin; Z86.14 Personal history of Methicillin resistant Staphylococcus aureus infection
CPT/HCPCS: 99212; G0463

== ENCOUNTER 2020-12-11 13:16 | Emergency (ER) | payer MEDICAID, SELFPAY ==
[2020-12-11 12:10] VITALS: BMI 31.2
[2020-12-11 13:17] VITALS: BP 101/54; PULSE 80; RESP 17; TEMP 36.4; O2SAT 95; BMI 31.6
--- NOTE | 2020-12-11 13:22 | ED.RN ---
PT PHONE [phone]
--- NOTE | 2020-12-11 13:56 | VDLE_ITS ---
Reason For Study: swelling Procedure LEFT This is a venous duplex using B-mode, color GSV is normal. flow and spectral Doppler. CFV is compressible, spontaneous, phasic, Exam performed portable in ED. competent, and demonstrates normal The exam was abbreviated due to the COVID 19 augmentation. protocol. FV is compressible, spontaneous, phasic, The exam was diagnostic. competent and demonstrates normal A preliminary report was called and/or faxed augmentation. to Dr. Ozuna. POP V is compressible, spontaneous, phasic, competent and demonstrates normal augmentation. T/P Trunk is compressible. PTV is compressible. LT PerV is compressible. Interpretation Summary Deep veins of the left lower extremity are patent and compressible segmentally. There is no evidence of left lower extremity deep vein thrombosis. Valvular competence appears intact within the proximal deep venous system on the left . The left great saphenous vein appears patent and compressible segmentally. Ordering Physician: Pascual Ozuna Performed By: Morgna Lemos RVViral
--- NOTE | 2020-12-11 14:29 | ED.VISSUMM ---
- ER Visit Summary Date of Service: 12/11/20 Chief Complaint: Left leg pain and swelling History of Present Illness: The patient is a 60 M who presents with left leg pain and swelling that began 1 week ago. Patient states he fell at that time and twisted his leg. Patient states the pain is over the medial aspect of the left lower leg. Patient states the swelling has been improving. Patient describes his pain as burning and throbbing. Patient denies any paresthesias or weakness. Patient denies any fevers or chills. Patient went to an urgent care today and was referred to the emergency department for evaluation of possible DVT. Physical Examination: Vital signs are stable. Patient is afebrile. Patient is in no acute distress. Musculoskeletal exam reveals tenderness over the left lower leg. There is some mild edema and ecchymosis. There is no bony crepitance or step-off. There is good range of motion of the left lower extremity. Pedal pulses are equal bilateral. Capillary refill is less than 2 seconds in all digits. Sensation was intact to light touch in all digits. There is minimal calf tenderness. Test Results: Venous duplex of the left lower extremity was obtained. There is no evidence of DVT. Emergency Department Course and Treatment: Patient was advised of his findings. Patient was advised that this most likely contusion. Patient was instructed to keep his leg elevated. Patient was instructed to take Tylenol or ibuprofen as needed for pain. Patient was instructed to follow-up with his primary care physician in 5 to 7 days. Patient understood and was agreeable with the plan. All questions were answered. Disposition: Discharge home Impression: Left leg contusion This note was generated with [employer] dictation software. It may contain incorrect words, spelling, and punctuation that were not noted in review of the chart prior to signing ED Disposition - Plan for ED Patient: Disposition: Home or Assisted Living Diagnosis: Contusion of left lower leg, initial encounter Instructions: ED Contusion, Lower Extremity Referrals: Avery Escalante DO [Primary Care Provider] - 5-7 Days
[2020-12-11 14:53] VITALS: BP 130/79; PULSE 82; RESP 16; TEMP 36.6; O2SAT 92
== END 2020-12-11 14:54 | disposition home or self-care (01) ==
PROVIDERS: Emergency Provider Emergency Medicine; PCP Student in an Organized Health Care Education/Training Program
DX: S80.12XA Contusion of left lower leg, initial encounter (principal); W19.XXXA Unspecified fall, initial encounter; Y93.9 Activity, unspecified; Y92.9 Unspecified place or not applicable; Y99.9 Unspecified external cause status; I25.10 Atherosclerotic heart disease of native coronary artery without angina pectoris; I50.9 Heart failure, unspecified; E11.9 Type 2 diabetes mellitus without complications; Z79.4 Long term (current) use of insulin; Z79.82 Long term (current) use of aspirin; Z79.899 Other long term (current) drug therapy; Z86.73 Personal history of transient ischemic attack (TIA), and cerebral infarction without residual deficits; Z95.1 Presence of aortocoronary bypass graft
CPT/HCPCS: 93971; 99282

== ENCOUNTER → 2020-12-31 12:39 | Outpatient (CLI) | payer MEDICAID, SELFPAY ==
[2020-12-11 13:17] VITALS: BMI 31.6
--- NOTE | 2020-12-31 12:54 | RAD_ITS ---
STUDY: X-RAY - PELVIS AND LEFT HIP REASON FOR EXAM: Male, 60 years old. HIP PAIN TECHNIQUE: 3 views of the pelvis and hip. COMPARISON: April 01, 2018 pelvis and left hip x-rays FINDINGS: There is a non-specific bowel gas pattern. There are calcifications of the pelvic/prostate arteries. Normal bilateral iliac wings, sacroiliac joints and visualized sacrum. Normal bilateral superior and inferior pubic rami. Normal pubic symphysis. Normal bilateral ischial tuberosities. There is mild bilateral acetabular spurring. There is mild joint space narrowing narrowing. There is moderate stool in the visualized colon. There is vascular calcification of the trifurcation of both lower extremities. RAD/HIP, UNI W/ Pelvis 2-3 Views IMPRESSION: Degenerative change no visualized fracture. No significant change. Electronically Signed: Antonia Junior MD at 0:11 EDT Tel , Service support ,
--- NOTE | 2020-12-31 13:00 | RAD_ITS ---
STUDY: X-RAY - RIGHT HAND REASON FOR EXAM: Male, 60 years old. ulceration right ring finger -- discoloration right thumb. history of frostbite TECHNIQUE: 3 view(s) of the hand. COMPARISON: 03/26/2020. FINDINGS: Since prior study, there has been resorption or resection of the head of the third phalanx and the base of the third distal phalanx. Current appearance suggests absence of active osteolysis. No other focal abnormalities are suggested. No fractures. No dislocations. Heavily calcified arteries of the hand and digits are seen and consistent with advanced peripheral vascular disease. Grossly normal appearance of the wrist and visualized distal radius and ulna. RAD/Hand Min 3 Views IMPRESSION: Absence of the head of the third middle phalanx and the base of the third distal phalanx consistent with resection or resorption previous study. Currently, no specific evidence of acute abnormality seen. Electronically Signed: Gonsalo Escamilla MD at 14:03 EDT , Service support ,
== END ==
PROVIDERS: PCP Student in an Organized Health Care Education/Training Program; Referring Provider Anesthesiology Pain Medicine; Visit Provider Anesthesiology Pain Medicine
DX: R10.2 Pelvic and perineal pain (principal); M25.552 Pain in left hip; L98.492 Non-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ulcer of skin of other sites with fat layer exposed; E11.42 Type 2 diabetes mellitus with diabetic polyneuropathy; T33.521A Superficial frostbite of right hand, initial encounter; L81.9 Disorder of pigmentation, unspecified
CPT/HCPCS: 73130; 73502

== ENCOUNTER → 2021-01-06 13:00 | Outpatient (CLI) | payer MEDICAID, SELFPAY ==
[2021-01-05 14:57] VITALS: BMI 31.3
--- NOTE | 2021-01-06 13:09 | CT_ITS ---
STUDY: CT SCAN LEFT LOWER EXTREMITY LEFT REASON FOR EXAM: Male, 60 years old. MASS LLE/ENCOUNTER FOR OBSERV FOR OTHER SUSPECTED DISEASES/ -- CELLULITIS/PAIN IN L TIBIA/INJURY OF LEFT LOWER LEG RADIATION DOSAGE (If Supplied By Facility): CTDIvol = ( 15.35 ) mGy, DLP = ( 940.94 ) mGycm. Individualized dose optimization techniques were used for this CT.? TECHNIQUE: Multiple axial tomographic images were obtained from the distal femur down to the ankle joint without intravenous contrast demonstration. Axial and coronal reconstruction was obtained as well. COMPARISON: None. FINDINGS: Moderate degree of atherosclerotic calcific plaques of the popliteal artery as well as the three-vessel runoff to the left lower extremity. Pretibial soft tissue swelling with skin thickening. This is suggestive of soft tissue edema. No abscess is seen. No bony abnormality is present. CT/Extremity Lower without Contra IMPRESSION: Pretibial soft tissue swelling. No evidence of abscess or bony abnormality. Extensive atherosclerotic calcification of the visualized arteries. Electronically Signed: Chapo Viramontes MD at 13:40 EDT , Service support ,
== END ==
PROVIDERS: PCP Student in an Organized Health Care Education/Training Program; Referring Provider Student in an Organized Health Care Education/Training Program; Visit Provider Student in an Organized Health Care Education/Training Program
DX: R22.42 Localized swelling, mass and lump, left lower limb (principal); L03.116 Cellulitis of left lower limb; M89.8X6 Other specified disorders of bone, lower leg; Z03.89 Encounter for observation for other suspected diseases and conditions ruled out; S89.92XD Unspecified injury of left lower leg, subsequent encounter; X58.XXXD Exposure to other specified factors, subsequent encounter
CPT/HCPCS: 73700

== ENCOUNTER 2021-05-18 15:39 | Emergency (ER) | payer MEDICAID, SELFPAY ==
[2021-04-24 14:41] VITALS: BMI 31.5
[2021-05-18 15:40] VITALS: BP 119/74; PULSE 96; RESP 16; TEMP 37; O2SAT 97; BMI 31.3
[2021-05-18 15:43] VITALS: BP 119/74; PULSE 96; RESP 16; TEMP 37; O2SAT 97
--- NOTE | 2021-05-18 17:15 | EX.ED.DYSGE1 ---
HPI History of Present Illness Chief Complaint: Cellulitis Narrative Narrative: Patient presents with left newell contusion after hitting it 2 days ago. No fevers or chills he has not seen any worsening redness. No other injuries. [facility] Medical History (Updated 05/18/21 @ 17:[address] Mat Holder MD) Acute congestive heart failure Atherosclerotic heart disease of [place] coronary artery without angina pectoris [place] deformity of finger of right hand Callous ulcer with fat layer exposed Cellulitis lft foot failed outpatient tx Cerebrovascular disease Chronic skin ulcer with fat layer exposed Chronic ulcer of left foot with fat layer exposed Diabetes mellitus type 2 with complications Diabetic foot ulcer associated with type 2 diabetes mellitus Discoloration of skin of finger Environmental allergies Essential (primary) hypertension Finger osteomyelitis, right Frostbite of finger of right hand H/O stroke associated with blood clotting tendency Hammertoe of left foot Hammertoe of right foot History of frostbite HLD (hyperlipidemia) Neuropathy Non-compliance Non-healing surgical wound Nonhealing nonsurgical wound with fat layer exposed NSTEMI (non-ST elevated myocardial infarction) (~03/2018) Old myocardial infarction Other specified peripheral vascular diseases Segmental and somatic dysfunction of cervical region Segmental and somatic dysfunction of lumbar region Segmental and somatic dysfunction of thoracic region Skin ulcer of finger with fat layer exposed Thoracic neuritis Ulcer of right foot with fat layer exposed Xerosis cutis Xerosis of skin Home Medications ammonium lactate 57 gm TP PRN PRN 10/04/17 [History Last Taken Unknown] cholecalciferol (vitamin D3) 5,000 unit PO DAILY 10/04/17 [History Last Taken 03/26/20] [id number]-algal oil 1 ea PO DAILY 10/04/17 [History Last Taken 03/26/20] nortriptyline 50 mg PO QHS 10/04/17 [History Last Taken 03/25/20] biotin 1 mg PO DAILY 04/01/18 [History Last Taken 03/26/20] desonide 1 applic TOPICAL BID PRN 04/01/18 [History Last Taken 03/30/18] insulin glargine 20 unit SQ DAILY 04/01/18 [History Last Taken 03/25/20] insulin lispro See Protocol SQ TIDCM 04/01/18 [History Last Taken 03/26/20] ketoconazole 1 applic TOPICAL DAILY PRN 04/01/18 [History Last Taken 03/30/18] magnesium 250 mg PO DAILY 04/01/18 [History Last Taken 03/26/20] metoprolol tartrate 25 mg tablet 12.5 mg PO BID tab MDD 1.5 tabs 07/19/18 [History Last Taken 03/26/20] albuterol sulfate 90 mcg/actuation aerosol inhaler 2 puff INHALATION Q4H PRN g 08/13/19 [History Last Taken Unknown] amlodipine 10 mg tablet 10 mg PO DAILY 08/13/19 [History Last Taken 03/26/20] cetirizine 10 mg tablet 10 mg PO DAILY 08/13/19 [History Last Taken 03/26/20] gabapentin 300 mg capsule 900 mg PO TID cap 08/13/19 [History Last Taken 03/26/20] simvastatin 10 mg tablet 10 mg PO QHS 08/13/19 [History Last Taken 03/25/20] vardenafil 20 mg tablet 20 mg PO DAILY PRN 08/13/19 [History Last Taken Unknown] cyanocobalamin (vitamin B-12) 1,000 mcg IM Q30D 08/22/19 [History Last Taken 03/26/20] aspirin 81 mg tablet,delayed release 162 mg PO DAILY tab MDD . 10/12/19 [History Last Taken 03/26/20] furosemide 20 mg tablet 20 mg PO BID PRN tab 10/12/19 [History Last Taken Unknown] lisinopril 5 mg PO QDAY 03/26/20 [History Last Taken 03/26/20] insulin lispro See Protocol SUBCUT ACHS insuln.pen 03/31/20 [Rx Last Taken Unknown] tramadol 50 mg tablet 50 mg PO PRN tablet 02/04/21 [History Last Taken Unknown] Allergy/AdvReac Type Severity Reaction Status Date / Time atorvastatin AdvReac Unknown Verified 04/24/21 14:44 Family History Father Diabetes Heart disease Hypertension Grandfather Diabetes Heart disease Grandmother Diabetes Mother Diabetes Hypertension Other Arthritis Surgical History Amputation toe H/O three vessel coronary artery bypass (~04/12/18) History of hand surgery Status post finger joint fusion Social History Smoking Status: Never smoker Smokeless tobacco user: chewing tobacco second hand exposure: Yes alcohol intake: current alcohol intake frequency: 0-2 drinks per day Alcohol type: beer substance use type: does not use additional social history: Does Take Aspirin Does not take Ibuprofen ROS ROS ED ROS Narrative Past medical history: Reviewed Medications: Reviewed Social history: Noncontributory Review of systems: Musculoskeletal: Leg pain as in HPI Skin: No abrasions or lacerations Neurological: No weakness or paresthesias Hematologic: No easy bleeding or easy bruising EXAM Physical Exam Narrative Exam Narrative: Physical exam General: Patient does not appear in significant distress . Head: Normocephalic, Atraumatic Neck: No C-spine tenderness Cardiovascular: Normal distal pulses Back: Nontender, Normal Inspection. Extremities: Anterior newell region reveals a 2-1/2 cm hematoma, there is no erythema or calor. No streaking no signs of infection. No calf pain. Skin: As above Neurological: Normal strength and sensation Const Vital Signs: 05/18/21 15:40 05/18/21 15:43 Temperature 98.6 F 98.6 F Temperature Source Oral Oral Pulse Rate 96 96 Respiratory Rate 16 16 Blood Pressure 119/74 119/74 Blood Pressure Mean 89 89 Pulse Ox 97 97 Oxygen Delivery Method Room Air Room Air MDM MDM MDM Narrative Medical decision making narrative: Patient does not have any signs or symptoms of infection. He appears well. I do not believe he needs antibiotics. I reassured him and I will discharge him in stable condition. Discharge Plan Triage Chief Complaint: Cellulitis ED Provider: Mat Holder Dx/Rx/DC Orders Clinical Impression: Hematoma Instructions: ED Hematoma Prescriptions: No Action amlodipine 10 mg tablet 10 mg PO DAILY RF: 0 albuterol sulfate [ProAir HFA] 90 mcg/actuation HFA aerosol inhaler 2 puff INHALATION Q4H PRN (Reason: Sob &/Or Wheezing) RF: 0 cetirizine 10 mg tablet 10 mg PO DAILY RF: 0 gabapentin 300 mg capsule 900 mg PO TID RF: 0 simvastatin 10 mg tablet 10 mg PO QHS RF: 0 vardenafil 20 mg tablet 20 mg PO DAILY PRN (Reason: sexual activity) RF: 0 tramadol 50 mg tablet 50 mg PO PRNRF: 0 ammonium lactate 57 GM lotion 57 gm TP PRN PRN (Reason: SKIN) RF: 0 cholecalciferol (vitamin D3) 5,000 UNIT capsule 5,000 unit PO DAILY RF: 0 nortriptyline 50 MG capsule 50 mg PO QHS RF: 0 [id number]-algal oil 1 EACH capsule 1 ea PO DAILY RF: 0 desonide 1 APPLIC cream 1 applic TOPICAL BID PRN (Reason: Dry Skin) RF: 0 magnesium 250 MG tablet 250 mg PO DAILY RF: 0 ketoconazole 15 GM cream 1 applic TOPICAL DAILY PRN (Reason: Dry Skin) RF: 0 insulin lispro 100 UNIT/ML insulin pen See Protocol unit SQ TIDCM RF: 0 biotin 1 MG tablet 1 mg PO DAILY RF: 0 insulin glargine 100 UNIT/ML insulin pen 20 unit SQ DAILY RF: 0 metoprolol tartrate 25 mg tablet 12.5 mg PO BID MDD 1.5 tabs RF: 0 aspirin 81 mg tablet,delayed release (DR/EC) 162 mg PO DAILY MDD . RF: 0 cyanocobalamin (vitamin B-12) 1,000 MCG/ML solution 1,000 mcg IM Q30D RF: 0 lisinopril 5 MG tablet 5 mg PO QDAY RF: 0 insulin lispro 100 UNIT/ML insulin pen See Protocol unit subcut ACHS RF: 0 furosemide 20 mg tablet 20 mg PO BID PRN (Reason: water retention) RF: 0 Primary Care Provider: Avery Escalante Referrals: Avery Escalante DO [Primary Care Provider] - Disposition Disposition: Home, Self Care
== END 2021-05-18 17:35 | disposition home or self-care (01) ==
PROVIDERS: Emergency Provider Emergency Medicine; PCP Student in an Organized Health Care Education/Training Program
DX: S80.12XA Contusion of left lower leg, initial encounter (principal); L03.116 Cellulitis of left lower limb; W22.8XXA Striking against or struck by other objects, initial encounter; Y93.9 Activity, unspecified; Y92.9 Unspecified place or not applicable; Y99.9 Unspecified external cause status; L97.512 Non-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ulcer of other part of right foot with fat layer exposed; L97.522 Non-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ulcer of other part of left foot with fat layer exposed; I11.0 Hypertensive heart disease with heart failure; I50.9 Heart failure, unspecified; I25.10 Atherosclerotic heart disease of native coronary artery without angina pectoris; E11.621 Type 2 diabetes mellitus with foot ulcer; E11.40 Type 2 diabetes mellitus with diabetic neuropathy, unspecified; E78.5 Hyperlipidemia, unspecified; F17.220 Nicotine dependence, chewing tobacco, uncomplicated; Z79.82 Long term (current) use of aspirin; Z79.4 Long term (current) use of insulin; Z79.899 Other long term (current) drug therapy; Z86.73 Personal history of transient ischemic attack (TIA), and cerebral infarction without residual deficits; I25.2 Old myocardial infarction; Z95.1 Presence of aortocoronary bypass graft
CPT/HCPCS: 99282

== ENCOUNTER 2021-06-12 18:12 | Emergency (ER) | payer MEDICAID, SELFPAY ==
[2021-06-12 18:13] VITALS: BP 106/63; PULSE 102; RESP 18; TEMP 35.4; O2SAT 97; BMI 29.9
--- NOTE | 2021-06-12 19:59 | EKG12_ITS ---
Test Reason : GEN ILLNESS Blood Pressure : / mmHG Vent. Rate : 086 BPM Atrial Rate : 086 BPM P-R Int : 184 ms QRS Dur : 086 ms QT Int : 352 ms P-R-T Axes : 038 -03 091 degrees QTc Int : 421 ms Normal sinus rhythm Septal infarct , age undetermined Abnormal ECG Confirmed by RAINER BASHIR, ANGEL ([id number]), restaurant expeditor JOSE JUAN JAIN ([id number]) on 06/15/2021 12:50:54 PM Referred By: DR PENNINGTON Confirmed By:ANGEL SPEAR MD
[2021-06-12 21:29] LABS: Anion Gap 2 (5-15); BUN 14 mg/dL (7-18); Calcium,Total 9.6 mg/dL (8.5-10.1); Chloride 106 mmol/L (98-107); EST Glomerular Filtration Rate 81 mL/min (>60); Est Glom Filt Rate - Afr Amer 98 mL/min (>60); Estimated Creatinine Clearance 83.67 ml/min; Glucose 103 mg/dL (74-106); Potassium 4.8 mmol/L (3.5-5.1); Sodium Level 140 mmol/L (136-145)
--- NOTE | 2021-06-12 21:43 | EDS_ITS ---
HPI History of Present Illness Chief Complaint: Abn Labs Narrative Narrative: Patient presenting due to concern for hyperkalemia. Patient had a scheduled blood draw and was told that his potassium was 6.1 and was recommended to come to the emergency department. Patient is asymptomatic from that standpoint denies any changes in his urinary habits he does have an underlying history of diabetes. He reports that he has been getting some cramps between his shoulder blades intermittently this is not exertional its not associated with chest pain or shortness of breath. He does report that he has a history of heart disease. Review of systems otherwise negative. 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 Callous ulcer with fat layer exposed Cellulitis lft foot failed outpatient tx Cerebrovascular disease Chronic skin ulcer with fat layer exposed Chronic ulcer of left foot with fat layer exposed Diabetes mellitus type 2 with complications Diabetic foot ulcer associated with type 2 diabetes mellitus Discoloration of skin of finger Environmental allergies Essential (primary) hypertension Finger osteomyelitis, right Frostbite of finger of right hand H/O stroke associated with blood clotting tendency Hammertoe of left foot Hammertoe of right foot History of frostbite HLD (hyperlipidemia) Neuropathy Non-compliance Non-healing surgical wound Nonhealing nonsurgical wound with fat layer exposed NSTEMI (non-ST elevated myocardial infarction) (~03/2018) Old myocardial infarction Other specified peripheral vascular diseases Segmental and somatic dysfunction of cervical region Segmental and somatic dysfunction of lumbar region Segmental and somatic dysfunction of thoracic region Skin ulcer of finger with fat layer exposed Thoracic neuritis Ulcer of right foot with fat layer exposed Xerosis cutis Xerosis of skin Home Medications ammonium lactate 57 gm TP PRN PRN 10/04/17 [History Last Taken Unknown] cholecalciferol (vitamin D3) 5,000 unit PO DAILY 10/04/17 [History Last Taken 03/26/20] [id number] oil 1 ea PO DAILY 10/04/17 [History Last Taken 03/26/20] nortriptyline 50 mg PO QHS 10/04/17 [History Last Taken 03/25/20] biotin 1 mg PO DAILY 04/01/18 [History Last Taken 03/26/20] desonide 1 applic TOPICAL BID PRN 04/01/18 [History Last Taken 03/30/18] insulin glargine 20 unit SQ DAILY 04/01/18 [History Last Taken 03/25/20] insulin lispro See Protocol SQ TIDCM 04/01/18 [History Last Taken 03/26/20] ketoconazole 1 applic TOPICAL DAILY PRN 04/01/18 [History Last Taken 03/30/18] magnesium 250 mg PO DAILY 04/01/18 [History Last Taken 03/26/20] metoprolol tartrate 25 mg tablet 12.5 mg PO BID tab MDD 1.5 tabs 07/19/18 [History Last Taken 03/26/20] albuterol sulfate 90 mcg/actuation aerosol inhaler 2 puff INHALATION Q4H PRN g 08/13/19 [History Last Taken Unknown] amlodipine 10 mg tablet 10 mg PO DAILY 08/13/19 [History Last Taken 03/26/20] cetirizine 10 mg tablet 10 mg PO DAILY 08/13/19 [History Last Taken 03/26/20] gabapentin 300 mg capsule 900 mg PO TID cap 08/13/19 [History Last Taken 03/26/20] simvastatin 10 mg tablet 10 mg PO QHS 08/13/19 [History Last Taken 03/25/20] vardenafil 20 mg tablet 20 mg PO DAILY PRN 08/13/19 [History Last Taken Unknown] cyanocobalamin (vitamin B-12) 1,000 mcg IM Q30D 08/22/19 [History Last Taken 03/26/20] aspirin 81 mg tablet,delayed release 162 mg PO DAILY tab MDD . 10/12/19 [Histo ry Last Taken 03/26/20] furosemide 20 mg tablet 20 mg PO BID PRN tab 10/12/19 [History Last Taken Unknown] lisinopril 5 mg PO QDAY 03/26/20 [History Last Taken 03/26/20] insulin lispro See Protocol SUBCUT ACHS insuln.pen 03/31/20 [Rx Last Taken Unknown] tramadol 50 mg tablet 50 mg PO PRN tablet 02/04/21 [History Last Taken Unknown] Allergy/AdvReac Type Severity Reaction Status Date / Time atorvastatin AdvReac Unknown Verified 06/12/21 18:14 Family History Father Diabetes Heart disease Hypertension Grandfather Diabetes Heart disease Grandmother Diabetes Mother Diabetes Hypertension Other Arthritis Surgical History Amputation toe H/O three vessel coronary artery bypass (~04/12/18) History of hand surgery Status post finger joint fusion Social History Smoking Status: Never smoker Smokeless tobacco user: chewing tobacco second hand exposure: Yes alcohol intake: current alcohol intake frequency: 0-2 drinks per day Alcohol type: beer substance use type: does not use additional social history: Does Take Aspirin Does not take Ibuprofen ROS ROS ED Constitutional Constitutional ED: Denies chills or fever(s) ENT ENT ED: Denies rhinorrhea Cardiovascular Cardiovascular: Denies chest pain Respiratory/Chest Respiratory/Chest: Denies cough or dyspnea Gastrointestinal Gastrointestinal: Denies abdominal pain, diarrhea, nausea or vomiting Genitourinary Genitourinary ED: Denies dysuria or hematuria Musculoskeletal Musculoskeletal: Denies back pain Integumentary Denies rash Neurologic Neurologic: Denies paresthesias or weakness Psychiatric Psychiatric: Denies depression Endocrine Endocrinology: Denies fatigue Allergic/Immunologic Allergic/Immunologic ED: Denies urticaria EXAM Physical Exam Const Vital Signs: 06/12/21 18:13 Temperature 95.8 F L Temperature Source Temporal Pulse Rate 102 H Respiratory Rate 18 Blood Pressure 106/63 Blood Pressure Mean 77 Pulse Ox 97 Oxygen Delivery Method Room Air Positive well nourished and well developed General Appearance ED: well developed and NAD HEENT Reports moist mucous membranes Negative for trauma or tenderness Eyes EOMs intact bilaterally Neck no lymphadenopathy, supple and no JVD Chest Wall inspection of chest normal Resp normal respiratory effort and clear to auscultation bilaterally Cardio regular rate, regular rhythm, no murmurs and peripheral pulses 2+ throughout GI normal to inspection, nondistended, normoactive bowel sounds, non-tender and no masses Palpation: soft Back/Spine normal to inspection Extremity normal to inspection General Extremety ED: Negative for tenderness Neuro oriented x3 and no sensory deficits noted Sensorium / Orientation: alert Motor Exam: strength 5/5 throughout Psych mental status grossly normal Skin no rashes or lesions noted MDM MDM MDM Narrative Medical decision making narrative: Patient presented secondary to a outpatient elevation of potassium. BMP was repeated in the emergency department was normal. Patient complained of some nonspecific cramping in his shoulders I got an EKG which was found to be normal. Patient was discharged with reassurance. Lab Data Labs: Laboratory Results - last 24 hr 06/12/21 20:27 Sodium 140 Potassium 4.8 Chloride 106 Carbon Dioxide 32.0 Anion Gap 2 L BUN 14 Creatinine 1.00 Estim Creat Clear Calc 83.67 Est GFR (MDRD) Af Amer 98 Est GFR (MDRD) Non-Af 81 BUN/Creatinine Ratio 14.0 Glucose 103 Calcium 9.6 EKG Initial EKG: Attestation: I personally reviewed and interpreted this EKG as follows: (Sinus rhythm of 86, septal Q waves are noted no evidence of ST segment changes or T wave changes no acute ischemia or arrhythmia.) Discharge Plan Triage Chief Complaint: Abn Labs ED Provider: Raciel Sepulveda Dx/Rx/DC Orders Clinical Impression: Feared condition not demonstrated Instructions: ED No Diagnosis Prescriptions: No Action amlodipine 10 mg tablet 10 mg PO DAILY RF: 0 albuterol sulfate [ProAir HFA] 90 mcg/actuation HFA aerosol inhaler 2 puff INHALATION Q4H PRN (Reason: Sob &/Or Wheezing) RF: 0 cetirizine 10 mg tablet 10 mg PO DAILY RF: 0 gabapentin 300 mg capsule 900 mg PO TID RF: 0 simvastatin 10 mg tablet 10 mg PO QHS RF: 0 vardenafil 20 mg tablet 20 mg PO DAILY PRN (Reason: sexual activity) RF: 0 tramadol 50 mg tablet 50 mg PO PRNRF: 0 ammonium lactate 57 GM lotion 57 gm TP PRN PRN (Reason: SKIN) RF: 0 cholecalciferol (vitamin D3) 5,000 UNIT capsule 5,000 unit PO DAILY RF: 0 nortriptyline 50 MG capsule 50 mg PO QHS RF: 0 [id number]-algal oil 1 EACH capsule 1 ea PO DAILY RF: 0 desonide 1 APPLIC cream 1 applic TOPICAL BID PRN (Reason: Dry Skin) RF: 0 magnesium 250 MG tablet 250 mg PO DAILY RF: 0 ketoconazole 15 GM cream 1 applic TOPICAL DAILY PRN (Reason: Dry Skin) RF: 0 insulin lispro 100 UNIT/ML insulin pen See Protocol unit SQ TIDCM RF: 0 biotin 1 MG tablet 1 mg PO DAILY RF: 0 insulin glargine 100 UNIT/ML insulin pen 20 unit SQ DAILY RF: 0 metoprolol tartrate 25 mg tablet 12.5 mg PO BID MDD 1.5 tabs RF: 0 aspirin 81 mg tablet,delayed release (DR/EC) 162 mg PO DAILY MDD . RF: 0 cyanocobalamin (vitamin B-12) 1,000 MCG/ML solution 1,000 mcg IM Q30D RF: 0 lisinopril 5 MG tablet 5 mg PO QDAY RF: 0 insulin lispro 100 UNIT/ML insulin pen See Protocol unit subcut ACHS RF: 0 furosemide 20 mg tablet 20 mg PO BID PRN (Reason: water retention) RF: 0 Primary Care Provider: Avery Escalante Referrals: Avery Escalante DO [Primary Care Provider] - As Needed Disposition Disposition: Home, Self Care
[2021-06-12 22:04] VITALS: BP 114/76; PULSE 59; RESP 16; O2SAT 98
== END 2021-06-12 22:06 | disposition home or self-care (01) ==
PROVIDERS: Emergency Provider Emergency Medicine; PCP Student in an Organized Health Care Education/Training Program
DX: Z71.1 Person with feared health complaint in whom no diagnosis is made (principal); I11.0 Hypertensive heart disease with heart failure; I50.9 Heart failure, unspecified; I25.10 Atherosclerotic heart disease of native coronary artery without angina pectoris; E11.40 Type 2 diabetes mellitus with diabetic neuropathy, unspecified; E78.5 Hyperlipidemia, unspecified; F17.220 Nicotine dependence, chewing tobacco, uncomplicated; Z79.82 Long term (current) use of aspirin; Z79.4 Long term (current) use of insulin; Z79.899 Other long term (current) drug therapy; I25.2 Old myocardial infarction; Z95.1 Presence of aortocoronary bypass graft; Z91.19 Patient's noncompliance with other medical treatment and regimen; Z86.73 Personal history of transient ischemic attack (TIA), and cerebral infarction without residual deficits
CPT/HCPCS: 36415; 80048; 93005; 99282

== ENCOUNTER → 2021-06-24 12:54 | Outpatient (CLI) | payer MEDICAID, SELFPAY ==
[2021-06-24 13:53] LABS: Amphetamine Urine VISTA NEGATIVE (<1000 ng/mL); Barbiturate Urine VISTA NEGATIVE (< 200 ng/mL); Benzodiazepine Urine VISTA NEGATIVE (< 200 ng/mL); Cocaine Urine VISTA NEGATIVE (< 300 ng/mL); Ecstacy Urine VISTA NEGATIVE (< 500 ng/mL); Methadone Urine VISTA NEGATIVE (< 300 ng/mL); PCP Urine VISTA NEGATIVE (< 25 ng/mL); THC Urine VISTA NEGATIVE (< 50 ng/mL); Vista UDS pH Range 5
== END ==
PROVIDERS: PCP Student in an Organized Health Care Education/Training Program; Referring Provider Anesthesiology Pain Medicine; Visit Provider Anesthesiology Pain Medicine
DX: F11.20 Opioid dependence, uncomplicated (principal)
CPT/HCPCS: 80307

== ENCOUNTER → 2021-07-30 16:22 | Outpatient (CLI) | payer MEDICAID, SELFPAY ==
--- NOTE | 2021-07-30 16:23 | MRI_ITS ---
STUDY: MR Spine Lumbar W/O Contrast 07/31/2021 5:26 PM REASON FOR EXAM: Male, 61 years old. Back pain pain TECHNIQUE: MR Spine Lumbar W/O Contrast Standardized fat and water weighted pulse sequences were obtained. COMPARISON: None FINDINGS: T12-L1: Loss of intervertebral disc height. There is endplate spondylosis of the vertebral body. Normal central canal and intervertebral neuroforamina. There is bilateral facet arthropathy. There is bilateral ligamentum flavum thickening. Normal lumbar lordosis. There is no substantial scoliosis. Normal conus medullaris that terminates at the L1. L1-2: Loss of intervertebral disc height. There is endplate spondylosis of the vertebral body. Normal central canal and intervertebral neuroforamina. There is bilateral facet arthropathy. There is bilateral ligamentum flavum thickening. L2-3: Loss of intervertebral disc height. There is endplate spondylosis of the vertebral body. Normal central canal and intervertebral neuroforamina. There is bilateral facet arthropathy. There is bilateral ligamentum flavum thickening. L3-4: Loss of intervertebral disc height. There is endplate spondylosis of the vertebral body. Normal central canal and intervertebral neuroforamina. There is bilateral facet arthropathy. There is bilateral ligamentum flavum thickening. L4-5: Loss of intervertebral disc height. There is endplate spondylosis of the vertebral body. Normal central canal and intervertebral neuroforamina. There is bilateral facet arthropathy. There is bilateral ligamentum flavum thickening. L5-S1: Loss of intervertebral disc height. There is endplate spondylosis of the vertebral body. There is bilateral facet arthropathy. Bilateral neural foraminal stenosis. Compression of exiting nerve roots. Central disc herniation. No spinal stenosis.. Normal visualized sacral ala. Minimal soft tissue edema overlying the lower sacrum subcutaneous fat. MRI/Spine Lumbar (Routine) IMPRESSION: Multilevel degenerative changes, as described above. This is most significant at L5-S1 where there is a central disc herniation. Electronically Signed: Juan Raomn Barnes MD at 17:28 EDT , Service support ,
== END ==
PROVIDERS: PCP Student in an Organized Health Care Education/Training Program; Referring Provider Orthopaedic Surgery; Visit Provider Orthopaedic Surgery
DX: M43.17 Spondylolisthesis, lumbosacral region (principal)
CPT/HCPCS: 72148

== ENCOUNTER 2021-12-01 05:56 | Inpatient (IN) | payer MEDICAID, SELFPAY ==
[2021-11-23 15:02] LABS: Hemoglobin A1c 5.6 % (3.8-5.6)
[2021-11-23 16:04] LABS: HIV - WCH Non-Reactive (Nonreactive); Hepatitis B Surface Antibody Non-Reactive; Hepatitis C Antibody Non-Reactive (Nonreactive)
[2021-11-25 13:23] LABS: Hepatitis A AB, Total Negative (Negative)
[2021-11-25 18:19] LABS: MG Sendout 1.6 mg/dL (1.6-2.3)
[2021-12-01] VITALS (18 sets, daily range): BP systolic 109–168; BP diastolic 67–125; PULSE 92–115; RESP 14–32; TEMP 36.2–39.8; O2SAT 95–100; BMI 31.9
[2021-12-01 06:40] LABS: Bedside Glucose 193 mg/dL (70-110)
[2021-12-01] MEDS: Lactated Ringers 1,000 ML 15 ML IV (06:48)
[2021-12-01 06:50] LABS: Potassium 4.4 mmol/L (3.5-5.1)
[2021-12-01] MEDS: Insulin Lispro 100 UNIT/ML INSULN.PEN SC (07:00)
[2021-12-01] MEDS: Acetaminophen 500 MG Tablet 1000 MG PO (07:10)
--- NOTE | 2021-12-01 07:21 | HP.PCM_ITS ---
History and Physical Date of Admission: 12/01/21 Created in prior version - Sign/Cancel Only. [facility] [id number] [id number] OFFICE VISITDate of Service: 02/04/21 MR#:[id number]:[id number]: GEORGERICK Jr.Rep #:[id number] 2DOB:1960 Provider:Dr. Tadeo Meyer, Age/Sex: 60/M Location:[facility].Jackieus:Signed Intake Intake Visit Reasons: Lumbar spine Accompanied by: Self Is patient in pain?: Yes Allergies atorvastatin Adverse Reaction (Verified 01/01/21 16:00) Unknown metformin Adverse Reaction (Verified 01/01/21 16:00) Diarrhea Medications Ammonium Lactate [Amlactin] 57 gm TP PRN PRN 10/04/17 [History Confirmed 01/01/21] Celecoxib [Celebrex] 200 mg PO DAILY 10/04/17 [History Confirmed 02/04/21] Cholecalciferol (Vitamin D3) [Vitamin D3] 5,000 unit PO DAILY 10/04/17 [History Confirmed 02/04/21] Levomefolate/B6/B12/Algal Oil [Metanx Capsule] 1 ea PO DAILY 10/04/17 [History Confirmed 02/04/21] Nortriptyline HCl 50 mg PO QHS 10/04/17 [History Confirmed 02/04/21] Biotin 1 mg PO DAILY 04/01/18 [History Confirmed 02/04/21] Desonide 0.05% [Desowen 0.05% Cream] 1 applic TOPICAL BID PRN 04/01/18 [History Confirmed 02/04/21] Insulin Glargine,Hum.rec.anlog [Basaglar Kwikpen U-100] 20 unit SQ DAILY 04/01/18 [History Confirmed 02/04/21] Insulin Lispro [Humalog KwikPen] See Protocol SQ TIDCM 04/01/18 [History Confirmed 02/04/21] Ketoconazole [Nizoral Cream] 1 applic TOPICAL DAILY PRN 04/01/18 [History Conf irmed 02/04/21] Magnesium 250 mg PO DAILY 04/01/18 [History Confirmed 02/04/21] metoprolol tartrate 25 mg tablet 12.5 mg PO BID tab MDD 1.5 tabs 07/19/18 [History Confirmed 02/04/21] albuterol sulfate 90 mcg/actuation aerosol inhaler 2 puff INHALATION Q4H PRN g 08/13/19 [History Confirmed 02/04/21] amlodipine 10 mg tablet 10 mg PO DAILY 08/13/19 [History Confirmed 02/04/21] becaplermin 0.01 % topical gel 1 applic TOPICAL DAILY PRN 08/13/19 [History Confirmed 02/04/21] cetirizine 10 mg tablet 10 mg PO DAILY 08/13/19 [History Confirmed 02/04/21] gabapentin 300 mg capsule 900 mg PO TID cap 08/13/19 [History Confirmed 02/04/21] simvastatin 10 mg tablet 10 mg PO QHS 08/13/19 [History Confirmed 02/04/21] vardenafil 20 mg tablet 20 mg PO DAILY PRN 08/13/19 [History Confirmed 02/04/21] Cyanocobalamin [Vitamin B12] 1,000 mcg IM Q30D 08/22/19 [History Confirmed 02/04/21] aspirin 81 mg tablet,delayed release 162 mg PO DAILY tab MDD . 10/12/19 [History Confirmed 02/04/21] baclofen 20 mg tablet 30 mg PO TID tab 10/12/19 [History Confirmed 02/04/21] famotidine 20 mg tablet 20 mg PO DAILY 10/12/19 [History Confirmed 02/04/21] furosemide 20 mg tablet 20 mg PO BID PRN tab 10/12/19 [History Confirmed 02/04/21] Lisinopril 5 mg PO QDAY 03/26/20 [History Confirmed 02/04/21] Docusate Sodium [Colace] 100 mg PO BID cap 03/31/20 [Rx Confirmed 02/04/21] Insulin Lispro [Humalog KwikPen] See Protocol SUBCUT ACHS insuln.pen 03/31/20 [Rx Confirmed 02/04/21] cyclobenzaprine 5 mg tablet 5 mg PO BID PRN tab 12/04/20 [History Confirmed 02/04/21] tramadol 50 mg tablet 50 mg PO PRN tablet 02/04/21 [History Confirmed 02/04/21] PFSH Medical History Boutonniere deformity of finger of right hand (Chronic) Discoloration of skin of finger (Resolved) Frostbite of finger of right hand (Resolved) Chronic skin ulcer with fat layer exposed (Resolved) Finger osteomyelitis, right (Chronic) History of frostbite (Chronic) Atherosclerotic heart disease of [place] coronary artery without angina pectoris (Chronic) Acute congestive heart failure (Acute) Old myocardial infarction (Chronic) H/O stroke associated with blood clotting tendency (Chronic) Essential (primary) hypertension (Chronic) Other specified peripheral vascular diseases (Chronic) Skin ulcer of finger with fat layer exposed (Chronic) Callous ulcer with fat layer exposed (Chronic) Hammertoe of right foot (Chronic) Hammertoe of left foot (Chronic) Xerosis cutis (Chronic) Nonhealing nonsurgical wound with fat layer exposed (Acute) Non-healing surgical wound (Acute) Diabetes mellitus type 2 with complications (Chronic) Environmental allergies (Acute) NSTEMI (non-ST elevated myocardial infarction) (Acute ~03/2018) Segmental and somatic dysfunction of cervical region (Acute) Segmental and somatic dysfunction of lumbar region (Acute) Segmental and somatic dysfunction of thoracic region (Acute) Thoracic neuritis (Acute) Cerebrovascular disease (Chronic) Neuropathy (Chronic) Non-compliance (Chronic) Xerosis of skin (Chronic) Cellulitis lft foot failed outpatient tx (Resolved) Chronic ulcer of left foot with fat layer exposed (Resolved) Diabetic foot ulcer associated with type 2 diabetes mellitus (Resolved) Ulcer of right foot with fat layer exposed (Resolved) Surgical History Status post finger joint fusion (Chronic) H/O three vessel coronary artery bypass (Chronic ~04/12/18) Amputation toe (Acute) History of hand surgery (Acute) Family History Father Diabetes Heart disease Hypertension Grandfather Diabetes Heart disease Grandmother Diabetes Mother Diabetes Hypertension Other Arthritis Social History (Updated 02/04/21 @ 12:[address] Tadeo Meyer, ) Smoking Status: Never smoker Smokeless tobacco user: chewing tobacco second hand exposure: Yes alcohol intake: current alcohol intake frequency: 0-2 drinks per day Alcohol type: beer substance use type: does not use additional social history: Does Take Aspirin Does not take Ibuprofen HPI Lumbar spine: Details: Parts of this documentation were recorded by a scribe, this documentation accurately reflects the service provided and the decisions made by me, Dr. Tadeo Meyer, 02/04/21 1102. RICK GEORGE is a 60 year old M here today to establish as a new patient. Referral from Dr. Begum for evaluation of his back pain and left hip pain. Patient's last hip/pelvis x-ray: 12/31/20. Last lumbar x-ray: 04/01/2018. Patient's pain first began with his lumbar: approx 2018. Pain worsens with sitting and standing. Patient is a [employer] by trade, so he is quite active. Pain with his hip began approx 2 years ago. Lumbar pain starts midline, and spreads across and causes sciatica pain. Pain will radiate to his left leg. Reports numbness, stiffness and tingling. Patient voiced he has tried and failed injections with Dr. Begum. Patient feels his pain worsened. Patient has been trying to begin physical therapy. Patient has tried the following conservative treatments for six weeks or greater: RICE, OTC NSAIDs, home exercises provided by a provider, corticosteroid injections and oral corticosteroids, narcotic and non-narcotic analgesic medication(s), director critical care, interventional pain procedures, pain management techniques, and spinal manipulation. Patient has found no relief and would like to further investigate their s/s. Therefore, will order a(n) [TEST/STUDY] to appropriately determine if [tx/sx] would be appropriate for the patient. Rick is most pleasant gentleman 60 years old that has chief complaint of pain in his left buttocks and intermittent pain in his right buttocks he has had low back pain even going back into his 20s. He is a [place] he works hard. He has had a quadruple bypass. He is a diabetic that has to take insulin. Apparently though he keeps very good control of his diabetes. His doctor told him that he got his A1c a bit too low. I asked him if he could live with what ever low back pain he has if his hip pain was gone and his pain that goes all the way to the top of his left foot would be gone if that would be good enough. He stated he could easily live with what back pain he has if he could just get rid of that other pain on both sides specially the left. Because he is so busy as a [place] he does not have time for a long recovery that would recut require if he had a reconstruction. That was just decompression of the L5 nerve on each side he could get back on his tractor in 3 weeks that would make him happy. He denies any bowel or bladder dysfunction. He denies history of unexplained weight loss night fever sweats or chills. Examination he has absence of the Achilles reflexes bilaterally me to has 1+ patellar reflexes bilaterally. He otherwise has good motor strength of all the major muscle groups of both lower extremities. He has no long tract signs. Clonus is absent Babinski's are downgoing. Plain x-rays taken in my office demonstrate that he has a grade 1 spondylolisthesis with bilateral pars defects. He wishes to think about the possibility of surgical intervention. I told him that we would try to just decompress the L5 nerve roots which would give him a lot short recovery then if we went ahead and fused him. He still needs to think it over. In the event that he should decide he wants surgery we will then order an MRI scan. I will see him on a as needed basis. Assessment & Plan Problems 1. Spondylolisthesis at L5-S1 level M43.17
--- NOTE | 2021-12-01 07:30 | DISC_PTH ---
PATIENT: RICK GEORGE Jr. LOC: [facility] U#:[id number] AGE/SX: 61/M ROOM: [facility] [place]12/01/[address]: Dr. Moe Clarke MD : 1960 BED: 1 DIS: 12/07/2021 SPEC #: [id number] RECD: 12/01/21 15:41 STATUS: SHELIA DAMON #: [id number] MARKUS: 12/01/21 07:[address]: Tadeo Meyer DEPT: SURGICAL PATHOLOGY RECD BY: Mukund Best ENTERED: 12/02/21 11:36 SP TYPE: DISC OTHR DR: MD Dr. Pascual Robb MD Dr. Jordan Garrison, DO Dr. Nicholas F Kotsonis, MD Dr. Prakash Chand, MD Dr. Robert Leininger, MD Tissues: Intervertebral disc, NOS Procedures: Surgery Specimen Level III HEADER OPERATION: ERAS, posterior fusion L5-S1, anterior lumbar intrabody fusion PRE-OP DIAGNOSIS: Spondylolisthesis at L5-S1 level TISSUE SUBMITTED: Disc MICROSCOPIC DIAGNOSIS Disc L5-S1: Fragments of fibrocartilaginous tissue with degenerative and reactive changes. JOSE:sandro 12/03/2021 MICROSCOPIC DESCRIPTION Slides are reviewed. GROSS DESCRIPTION Received in fixative is one container labeled with the patient's name and designated disc. The specimen consists of multiple irregular and indurated fragments of light to dark mayers soft tissue that in aggregate measure 8 x 7 x 1 cm. Patient Centered Care Specialist portions are submitted in two cassettes. / AM:sandro 12/02/2021 TC:5 CPT: 19132
[2021-12-01] MEDS: Cefazolin 2 GM in 0.9% Normal Saline 100 ML IV (08:03)
[2021-12-01] MEDS: Heparin 10,000 UNITS/10 ML Vial 10000 UNITS ×2 (08:39)
[2021-12-01] MEDS: THROMBIN (RECOMBINANT) 20,000 UNIT VIAL 20000 UNIT TOPICAL (08:39)
--- NOTE | 2021-12-01 09:30 | RAD_ITS ---
STUDY: X-RAY - LUMBAR SPINE REASON FOR EXAM: Male, 61 years old. L5-S1 360 FUSION TECHNIQUE: 1 intraoperative view(s) of the lumbar spine was obtained. COMPARISON: None FINDINGS: The localization instrument is seen along the anterior aspect of the L5-S1 disc space level. Grade 1 anterolisthesis of L5 on S1. RAD/Spine 1 View Any Level IMPRESSION: The localization instrument is seen along the anterior aspect of the L5-S1 disc space level. Electronically Signed: Chapo Viramontes MD at 10:21 EST ,
--- NOTE | 2021-12-01 09:43 | RAD_ITS ---
STUDY: X-RAY - LUMBAR SPINE REASON FOR EXAM: Male, 61 years old. Surgery TECHNIQUE: Single limited lateral view(s) of the lumbar spine were obtained. COMPARISON: None FINDINGS: Single limited lateral view of the lumbar spine was performed as patient has undergone anterior fusion between L5 and S1 to stabilize a pars defect and grade 1 spondylolisthesis. Alignment is anatomic after fusion. No intraoperative complications RAD/Spine 1 View Any Level IMPRESSION: Limited lateral view shows anatomic alignment of anterior fusion of L5 and S1. Fusion was performed to stabilize a pars defect and spondylolisthesis at L5/S1 Electronically Signed: Sadiq Arango MD at 17:38 EST ,
--- NOTE | 2021-12-01 10:54 | RAD_ITS ---
STUDY: X-RAY - LUMBAR SPINE REASON FOR EXAM: Male, 61 years old. 360 FUSION IMAGE #3 TECHNIQUE: 1 lateral view(s) of the lumbar spine was obtained. COMPARISON: Comparison is made with prior study done earlier in the day. FINDINGS: The patient is status post anterior fusion and disc replacement. RAD/Spine 1 View Any Level IMPRESSION: Status post anterior fusion with prosthetic disc placement. Electronically Signed: Chapo Viramontes MD at 9:54 EST ,
--- NOTE | 2021-12-01 11:13 | OP.PCM_ITS ---
Problems Associated Problem List Diagnoses (1) DDD (degenerative disc disease), lumbar: Report of Operation Date of Procedure: 12/01/21 Pre-Operative Diagnosis: Degenerative disc disease Post-Operative Diagnosis: The same Surgery/Procedure Performed:: 1. Anterior lumbar interbody fusion L5-S1 3 mm cage. 27 mm plate on top with 2 30 mm screws in L5 and 2 30 mm screws into S1. Type of Anesthesia: General Description of Procedure: Surgeon: Dr. Meyer co-surgeon: Dr. Casey Cook Operation. Patient brought to the operating room. Underwent appropriate timeout consent. Underwent general anesthesia. All appropriate monitoring lines were placed. Given appropriate antibiotics. We made a lower left quadrant incision. And dissected down onto the anterior fascia. We then freed up the anterior fascia superior and inferior. We then got lateral to the rectus into the retroperitoneal plane. We put in the Omni retractor. Using blunt dissection we dissected down onto the L5-S1 disc space. Several venous branches in the middle sacral artery were divided between clips. Freed up and marked under x-ray confirming we're in the L5-S1 disc space. Patient then underwent the discectomy. We used trials dilated up to a 16mm. Used the broach multiple passes freeing this up. We then put in a cage with bone marrow aspirate, this was previously taken from the left iliac crest, and placed in the good position. Plate was placed on top of this with 2 screws in L5 and 2 screws in S1. Confirmed with x- ray good position of this in good position of the screws. We put a film over this and released the veins. There is good hemostasis noted. We then closed the fascia with running strata fix. We then closed with 2-0 and 3-0 Vicryl's in layers. 4-0 Monocryl for the skin. Patient will then be flipped over and the posterior all be done separately with Dr. Meyer. I was present for the entire anterior component of the operation.
--- NOTE | 2021-12-01 11:33 | PCM.OPRPT ---
Report of Operation Date of Procedure: 12/01/21 Description of Surgical Findings:: Preoperative Diagnoses : Spondylolisthesis L5/S1 Postoperative Diagnoses : The Same Procedure: #1 anterior lumbar fusion L5-S1 CPT code 67612 #2 application of anterior spine plate L5-S1 CPT code 76293/59 #3 insertion of cage L5-S1 CPT code 90612 #4 use of DBM allograft L5-S1 CPT code 11409 #5 use of autograft (left iliac crest) CPT code 89003 Cosurgeons: Dr. Meyer and Dr. Cook Electrical Automation Engineer: Hayley Ramesh NP Anesthesia: General endotracheal anesthesia administered by [facility] Estimate blood loss: 100 cc Drains: None Complications: None Procedure: Patient was taken to the OR where he was placed in the supine position on the operating table he was then placed under general endotracheal anesthesia. Seay catheter was inserted. Neuro monitoring placed their leads and the patient. Once properly positioned the abdomen was prepped and draped in standard fashion. Surgical approach is then described in Dr. Cook's operative summary. Once he had L5-S1 exposed and confirmed with plain x-ray I then remove the anterior annulus with a 10 blade. I then removed more nucleus from in the disc base and the annulus anteriorly with large pituitary rongeurs I continue to remove nucleus all the way back to the back of the vertebral body. Then removed cartilage off both endplates using either ring curettes or both curettes. We then used a trial cages and decided on a large 16mm high cage. The space was then broached with a 16 mm high broach. Noted prior to this we obtained the patient's autograft BMA from the left iliac crest. Membership Sales Manager concentrated and the stem cells. These were concentrated 8-10 times. Then I placed DBM sponges inside the cage 1 on each side and it was then soaked in the patient's own concentrated stem cells. I then was able to tap it in place to countersink it 2 to 3 mm. We then used a 27 mm plate as that was the largest one we had. It was first tamped with an awl followed by insertion of the 30 mm screws at all [address] Cook was instrumental throughout the procedure and did many parts of the procedure including the application of the plate and screws. We then locked the locking mechanisms of the plate. An intraoperative x-ray was taken the demonstrated satisfactory position of the screws and the cage and the plate. We then placed a amnionic membrane directly over the plate to prevent adhesions to the surrounding vessels and known potential complication. The closure was then described in Dr. Cook's operative summary. This is the end of operative summary on Cesar Espinoza. This is Dr. Meyer dictating.
--- NOTE | 2021-12-01 14:53 | PCM.OPRPT ---
Report of Operation Date of Procedure: 12/01/21 Description of Surgical Findings:: Preoperative diagnosis: Spondylolisthesis L5-S1 with instability Postoperative diagnosis: The same Procedure: #1 posterior fusion L5-S1 CPT code 92968 #2 lateral laminectomy with removal of pars debris L5-S1 on the left CPT code 41973 #3 lateral laminectomy with removal of pars debris L5-S1 on the right CPT code 80442/50 and 51 Surgeon: Dr. Meyer assistant professor of mathematics: Hayley Ramesh NP Anesthesia: General endotracheal anesthesia administered by [facility] EBL: Less than 50 cc Drains: None Complications: None Procedure: Once the anterior surgery was done and Dr. Cook had the abdomen closed we turned the patient over onto the Austin frame in the prone position. Care was taken to protect his bony prominences his genitalia the ulnar nerves of both elbows the brachial plexus bilaterally the facial features and cervical spine. The back was then prepped and draped standard fashion. I then made an incision centered over L5-S1 subcutaneous tissues were incised the length of the skin incision. I then opened the lumbar fascia first to the left of the spinous processes and elevated the paravertebral muscles off the lamina of L5 and S1. The pars of course were identified. I open the right side the same exact fashion elevating. Interpreted muscles off the lamina of 5 and the S1 and identified the pars defect. Using both cautery and old bur rongeurs I slowly removed the pars of fibrous tissue on both sides did the left first. Then removed some calcifications this was seen on both sides but particularly on the left. This was slow and tedious process to prevent a dural leak. The nerve was identified also did a medial facetectomy and I then followed the nerve root out with a foraminotomy this completely decompressed first of the left L5 nerve root and second Jorgito I did the right L5 nerve root. When we were done they were completely decompressed this was checked with hockey-stick was found to be loose both anteriorly and posteriorly into the foramen.. We then placed amnionic membrane directly over each of the 2 defects and Gelfoam over the top of that. This is to prevent adhesions. I then used a bur to bur the transverse process on each side and the ala of the sacrum on both sides. We then used spongy DBM that was soaked in the patient's stem cells that we had recovered earlier after burring the transverse processes and ala on both sides we then placed the bone graft in place. Note that in the course of the case we thoroughly irrigated with copious amounts of sterile saline every 10 to 15 minutes. We then clipped closed the lumbar fascia with [id number] suture using #1 Vicryl. Note that we had excellent hemostasis at the end of the case. Then closed subcutaneous tissues in layers with 2-0 Vicryl and 0 Vicryl in interrupted fashion. The skin was then approximated using skin clips. Sterile dressings were then applied. The patient was then recovered in the OR moved to his hospital bed and taken to recovery in satisfactory condition. This the end of operative summary on Cesar Espinoza. This is Dr. Meyer dictating.
[2021-12-01 16:00] LABS: Bedside Glucose 166 mg/dL (70-110)
--- NOTE | 2021-12-01 18:30 | EKG12_ITS ---
Test Reason : POST OP Blood Pressure : / mmHG Vent. Rate : 111 BPM Atrial Rate : 111 BPM P-R Int : 192 ms QRS Dur : 090 ms QT Int : 318 ms P-R-T Axes : 054 -06 090 degrees QTc Int : 432 ms Sinus tachycardia Septal infarct , age undetermined, cannot be excluded Abnormal ECG Confirmed by SOMMER BASHIR, REID ([id number]), multimedia editor JOSE JUAN JAIN ([id number]) on 12/03/2021 9:20:06 AM Referred By: Tadeo Meyer Confirmed By:REID NOVOA MD
--- NOTE | 2021-12-01 18:43 | PCM.CONS.GEN ---
Assessment & Plan Assessment/Plan (1) DDD (degenerative disc disease), lumbar: PLAN: 1. Spondylolisthesis L5-S1 with instability: Patient had posterior fusion of L5-S1, lateral laminectomy L5-S1 on the left and right, anterior lumbar fusion L5-S1, application of anterior spine plate L5-S1, insertion of cage L5-S1 and use of allograft and autograft. Patient already had enough pain medications during perioperative region. Hold analgesic or sedative medication. VT prophylaxis as per spine surgeon Dr. Meyer. Patient has chronic back pain since 2018 worsens with sitting and standing. 2. Acute encephalopathy most probably medication induced/infectious encephalopathy: Patient having high fever. Patient is still confusion/lethargy most probably due to sedative medication along with meperidine given in OR. ABG does not show hypercarbia. Twelve-lead EKG shows sinus tachycardia with no acute ST-T changes. Isolated troponin and CK normal. Chest x-ray does not show acute in filtrate although official report pending. Infectious work-up with blood culture, UA with urine culture, and urinary antigens ordered. COVID-19 PCR ordered and result pending. Patient is on IV cefazolin. Monitor temperature curve and notify hospitalist. Demerol is known to cause respiratory depression, delirium and orthostatic hypotension. 3.: The artery disease status post three-vessel CABG, MACK to LAD, SVG OM, SVG to left PDA: Continue cardiac medications with holding parameter. 2D echo from May 2020 EF 55%. Trivial MR, trivial TR RVSP 26 MAG. No significant change from previous echo of March 2019 4. Hypertension: Blood pressure is greater than 150/25. Heart rate 110/min. Most likely it is acute response to fever. 5. History of CVA, in the past 6. Diabetes mellitus type 2 glucose is between range of 150 to 193 mg/dL. A1c ordered for tomorrow. Accu-Chek insulin coverage Humalog sliding is VT prophylaxis: Bilateral SCDs. Pharmacological prophylaxis as per surgeon Dr. Meyer Total time of the visit including total time spent in counseling or coordination of care, (more than 50% of the total time, spent in obtaining medical information from nurses and other ancillary care providers,explaining to the patient about labs, imaging, diagnosis and management), review of old record, cardiology visit by Dr. Ring, review of labs, ABG, EKG and imaging is 45 minutes. HPI Consult Data Date of Consult: 12/01/21 Attending Care Provider: Patient referred by Dr. Meyer for management of altered mental status, shortness of breath and multiple medical including atherosclerotic heart disease, heart failure severe diabetes mellitus type 2. HPI Narrative Reason for Consultation: management of acute change in altered mental status, high fever, SOB HPI Narrative: RICK GEORGE, is a 61 M who is admitted on [facility] after elective surgery of back 360 fusion. The the charge nurse of third floor called me to evaluate the patient as patient is very groggy, not waking up with mild shortness of breath. Immediately I went to see the patient. Patient is sleepy although wakes up on verbal command, groggy. His is near the bedside. He also complains of midsternal chest pain localized with tenderness on my palpation. Mild short of breath. Patient's denies history of sleep apnea, COPD or chronic lung disease. Patient has history of coronary artery disease status post CABG and congestive heart failure. On further review of medications given in ED, patient had Demerol 30 mg and other sedative medications and heparin during perioperative. ABG, troponin and twelve-lead EKG immediately ordered. Twelve-lead EKG shows sinus tachycardia with old septal infarct, LVH. QTc 432 ms. Previous EKG on October 27, 2021 similar. ABG shows pH seven-point 4/43/65 on 2.5 L of oxygen. Potassium normal 4.4. Troponin high-sensitivity normal. Patient further had high fever temperature 102.1 Fahrenheit with tachycardia, respiratory rate in 20/min and pulse ox 98% on 2.5 L of oxygen. Patient on IV cefazolin. COVID-19 PCR ordered. I do not see rapid antigen on our system. Chest x-ray immediately ordered and done but not reported. Portable chest x-ray independently reviewed shows crowded ribs and hypoventilated lung pope but no acute infiltrate. No significant change from previous chest x-ray PA and lateral April 2020. [facility] Medical History Acute congestive heart failure Alcohol use Arthritis Atherosclerotic heart disease of [place] coronary artery without angina pectoris Back pain Boutonniere deformity of finger of right hand Callous ulcer with fat layer exposed Cardiology follow-up encounter Cellulitis lft foot failed outpatient tx Cerebrovascular disease Chewing tobacco nicotine dependence Chronic skin ulcer with fat layer exposed Chronic ulcer of left foot with fat layer exposed CVA (cerebral vascular accident) Diabetes mellitus type 2 with complications Diabetic foot ulcer associated with type 2 diabetes mellitus Discoloration of skin of finger Environmental allergies Essential (primary) hypertension Finger osteomyelitis, right Frostbite of finger of right hand H/O stroke associated with blood clotting tendency Hammertoe of left foot Hammertoe of right foot History of frostbite HLD (hyperlipidemia) Hx of cardiovascular stress test Hx of echocardiogram Hx of edema Hypertension Insulin dependent diabetes mellitus Leg cramps Leg pain Neuropathy Non-compliance Non-healing surgical wound Nonhealing nonsurgical wound with fat layer exposed NSTEMI (non-ST elevated myocardial infarction) (~03/2018) Old myocardial infarction Other specified peripheral vascular diseases Segmental and somatic dysfunction of cervical region Segmental and somatic dysfunction of lumbar region Segmental and somatic dysfunction of thoracic region Skin ulcer of finger with fat layer exposed Syncope Thoracic neuritis Ulcer of right foot with fat layer exposed Xerosis cutis Xerosis of skin Home Medications ammonium lactate 57 gm TP PRN PRN 10/04/17 [History Last Taken Unknown] nortriptyline 50 mg PO QHS 10/04/17 [History Last Taken 03/25/20] biotin 1 mg PO DAILY 04/01/18 [History Last Taken 03/26/20] desonide 1 applic TOPICAL BID PRN 04/01/18 [History Last Taken 03/30/18] insulin lispro See Protocol SQ TIDCM 04/01/18 [History Last Taken 03/26/20] ketoconazole 1 applic TOPICAL DAILY PRN 04/01/18 [History Last Taken 03/30/18] metoprolol tartrate 25 mg tablet 12.5 mg PO BID tab MDD . 07/19/18 [History Last Taken 12/01/21] albuterol sulfate 90 mcg/actuation aerosol inhaler 2 puff INHALATION Q4H PRN g 08/13/19 [History Last Taken Unknown] amlodipine 10 mg tablet 10 mg PO DAILY 08/13/19 [History Last Taken 12/01/21] cetirizine 10 mg tablet 10 mg PO DAILY 08/13/19 [History Last Taken 03/26/20] simvastatin 10 mg tablet 10 mg PO QHS 08/13/19 [History Last Taken 03/25/20] cyanocobalamin (vitamin B-12) 1,000 mcg IM Q30D 08/22/19 [History Last Taken 03/26/20] aspirin 81 mg tablet,delayed release 162 mg PO DAILY tab MDD . 10/12/19 [History Last Taken 11/25/21] furosemide 20 mg tablet 20 mg PO BID PRN tab 10/12/19 [History Last Taken Unknown] lisinopril 5 mg PO QDAY 03/26/20 [History Last Taken 12/01/21] hydrocodone-acetaminophen 5-325mg 5mg-325mg 1 tab PO TID 10/27/21 [History Last Taken 12/01/21] metformin 500 mg tablet 500 mg PO BID 10/27/21 [History Last Taken Unknown] pregabalin 100 mg capsule 100 mg PO TID 10/27/21 [History Last Taken 12/01/21] acetaminophen 500 mg PO BID 11/17/21 [History Last Taken Unknown] baclofen 20 mg PO TID 11/17/21 [History Last Taken Unknown] cholecalciferol (vitamin D3) [Vitamin D3] 125 mcg PO DAILY 11/17/21 [History Last Taken Unknown] coenzyme Q10 100 mg PO QHS 11/17/21 [History Last Taken Unknown] docusate sodium 100 mg PO BID 11/17/21 [History Last Taken Unknown] insulin glargine [Lantus Solostar U-100 Insulin] 10 unit SUBCUT DAILY 11/17/21 [History Last Taken Unknown] montelukast [Singulair] 10 mg PO QHS 11/17/21 [History Last Taken Unknown] omega-3 fatty acids [Fish Oil] 1,000 mg PO DAILY 11/17/21 [History Last Taken Unknown] Allergy/AdvReac Type Severity Reaction Status Date / Time atorvastatin AdvReac Unknown Verified 12/01/21 06:46 Family History Father Diabetes Heart disease Hypertension Grandfather Diabetes Heart disease Grandmother Diabetes Mother Diabetes Hypertension Other Arthritis Surgical History Amputation toe H/O three vessel coronary artery bypass (~04/12/18) History of hand surgery Hx of cardiac catheterization Hx of elbow surgery Hx of left knee surgery Status post finger joint fusion Social History Smoking Status: Current every day smoker tobacco type: smokeless tobacco Smokeless tobacco user: chewing tobacco second hand exposure: Yes alcohol intake: current alcohol intake frequency: 0-2 drinks per day Alcohol type: beer substance use type: does not use additional social history: Does Take Aspirin Does not take Ibuprofen ROS ROS Narrative Patient mainly complained of chest pain midsternal localized. Could not see the detail of the pain characteristics. Mild short of breath. Rest 14 ROS system unobtainable because of confusion encephalopathy altered mental status Review of Systems ROS Unobtainable: due to encephalopathy Physical Exam Narrative General: Groggy, lethargy, sleepy, confused, disoriented HEENT: Atraumatic, PERRLA, EOMI, Normocephalic Oral: Deep oropharyngeal not well visualized. No Gingival or Mucosal Lesions/ Ulcerations Neck: Supple, No JVD, Negative Carotid Bruits Lungs: Air entry diminished in bilateral lung bases. No crepitation/rhonchi. Decreased respiratory effort. Cardiovascular: Sinus tachycardia, status post CABG, normal S1, Normal S2, No murmurs Abdomen: Bowel Sounds sluggish, Soft, Non Tender, Non-Distended : no renal angle tenderness. No suprapubic tenderness. Extremities: No edema, Capillary Refill Less than 3 Seconds Skin: No rashes, No breakdown Musculoskeletal/spine: No surgical dressing is dry. Could not examine the back because of recent surgery and patient groggy does not follow command. Patient had lumbar spine surgery from anterior and posterior approach Neurological: Cranial nerves II-XII grossly intact, DTR 2+/4 detailed neuro exam unobtainable Psych/Mental Status: Confused disoriented. Lab / Micro Data Result Diagrams: 12/01/21 06:38 Labs: Laboratory Results - last 24 hr 12/01/21 06:30: POC Glucose 193 H 12/01/21 06:38: Potassium 4.4 12/01/21 15:53: POC Glucose 166 H Radiology Impression Spine X-Ray 12/01/21 09:30 IMPRESSION: The localization instrument is seen along the anterior aspect of the L5-S1 disc space level. Electronically Signed: Chapo Viramontes MD at 10:21 EST , Spine X-Ray 12/01/21 09:43 IMPRESSION: Limited lateral view shows anatomic alignment of anterior fusion of L5 and S1. Fusion was performed to stabilize a pars defect and spondylolisthesis at L5/S1 Electronically Signed: Sadiq Arango MD at 17:38 EST , Charges/Coding Visit Charges Office Visits / Consults: [id number] IP Consult L4
[2021-12-01 18:56] LABS: Allen Test Positive; Base Excess 2 mmol/L (-2 to +2); Bicarbonate 27.2 mmol/L (22-26); Blood Gas Specimen Type ART; LPM 2.5 /min; O2 Delivery Device Cannula; PO2 65 mmHG (75-100); SITE R Radial; SO2 92 % (95-99); Total Carbon Dioxide 29 mmol/L; pCO2 43.8 mmHg (35-45)
[2021-12-01] MEDS: Lactated Ringers 1,000 ML 100 ML IV (19:06)
[2021-12-01] MEDS: Cefazolin 1 GM/50 ML BAG IV (19:28)
[2021-12-01 19:42] LABS: CPK Total, Creatine Kinase 255 U/L (39-308); Troponin-I HS 58 pg/mL (3.0-78.0)
[2021-12-01 20:36] LABS: Bedside Glucose 153 mg/dL (70-110)
--- NOTE | 2021-12-01 20:44 | RAD_ITS ---
STUDY: X-RAY CHEST REASON FOR EXAM: Male, 61 years old. Hypoxia TECHNIQUE: Frontal view COMPARISON: 05/07/2020 FINDINGS: Stable sternotomy wires. The lungs are expanded. Perihilar interstitial prominence and possible left infrahilar infiltrate/atelectasis. Normal size heart. Normal mediastinum and kaci. Normal visualized pulmonary arteries. Normal visualized aortic arch and descending thoracic aorta. Normal visualized thoracic spine. Normal visualized ribs, clavicles, and shoulders. There is no demonstrated abnormality of the visualized soft tissue structures of the upper abdomen. RAD/Chest 1 View (Portable) IMPRESSION: Perihilar interstitial prominence and possible left infrahilar infiltrate/atelectasis. Electronically Signed: Dannie Cardoza DO at 21:39 EST ,
[2021-12-01] MEDS: Acetaminophen 325 MG Suppository 975 MG RC (21:38)
[2021-12-01 21:41] LABS: Absolute Lymphocyte Count 0.74 X10^3/uL (0.83-4.51); Absolute Neutrophil Count 6.9 X10^3/uL (2.0-7.7); Basophil# 0.02 X10^3/uL; Basophil% 0.2 % (0-1); Eosinophil# 0.01 X10^3/uL; Eosinophils% 0.1 % (0-5); Hematocrit 37.1 % (40-54); Hemoglobin 12.3 g/dL (13.0-16.5); Lymphocyte # 0.74 X10^3/ul (0.83-4.51); Lymphocyte % 8.4 % (19-41); Mean Corp Hgb Conc 33.2 g/dL (32-36); Mean Corpuscular Hgb 34.4 pg (27.0-32.0); Mean Corpuscular Volume 103.6 fL (80-94); Monocyte# 1.13 X10^3/uL; Monocyte% 12.8 % (0-10); NRBC Flagged by Analyzer 0 % (0-5); Neutrophil # 6.88 X10^3/uL (2.7-7.7); Neutrophil % 77.7 % (47-70); Platelet Count 195 K/mm3 (150-450); RBC Distribution Width CV 13.9 % (11.6-14.6); RBC Distribution Width SD 53.3 fl (35.1-43.9); Red Blood Count 3.58 M/mm3 (4.6-6.2); White Blood Count 8.9 K/mm3 (4.4-11.0)
[2021-12-01 22:01] LABS: ALB/GLOB Ratio 0.9 RATIO (0.9-2.4); AST(SGOT) 19 U/L (15-37); Alanine Aminotransfer ALT/SGPT 22 U/L (16-61); Albumin, Serum 3.1 g/dL (3.2-5.0); Alkaline Phosphatase 54 U/L (45-117); Anion Gap 5 (5-15); BUN 13 mg/dL (7-18); BUN/Creat Ratio 12.9 RATIO (10-20); Calcium,Total 8.6 mg/dL (8.5-10.1); Chloride 106 mmol/L (98-107); Creatinine, Serum 1.01 mg/dL (0.70-1.30); EST Glomerular Filtration Rate 80 mL/min (>60); Est Glom Filt Rate - Afr Amer 97 mL/min (>60); Estimated Creatinine Clearance 80.31 ml/min; Globulin 3.4 g/dL (2.2-4.2); Glucose 168 mg/dL (74-106); Potassium 4.6 mmol/L (3.5-5.1); Protein, Total 6.5 g/dL (6.4-8.2); Sodium Level 138 mmol/L (136-145); Troponin-I HS 65 pg/mL (3.0-78.0)
[2021-12-01 22:38] LABS: International Normalized Ratio 1.1; Partial Thromboplast Time 26.8 Seconds (24.1-36.2); Prothrombin Time (Protime)PT. 13.2 SECONDS (11.7-14.9)
[2021-12-01 22:55] LABS: Lactic Acid 1.3 mmol/L (0.4-1.9)
[2021-12-01 23:06] LABS: Bedside Glucose 151 mg/dL (70-110)
[2021-12-01] MEDS: Naloxone 2 MG/2 ML Syringe 1 MG IV (23:08)
[2021-12-01] MEDS: Ketorolac 30 MG/ML Syringe IV (23:15)
[2021-12-01] MEDS: Ondansetron 4 MG/2 ML Vial IV (23:16)
--- NOTE | 2021-12-01 23:32 | CT_ITS ---
STUDY: CT HEAD STROKE PROTOCOL W/O CONTRAST INJECTION REASON FOR EXAM: Male, 61 years old. post-op lumbar fusion,weakness,garbled speech RADIATION DOSAGE (If Supplied By Facility): CTDIvol = ( 44.99 ) mGy, DLP = ( 829.85 ) mGycm TECHNIQUE: Transaxial CT imaging of the brain was performed without administration of intravenous contrast material. Individualized dose optimization techniques were used for this CT. COMPARISON: No relevant priors. FINDINGS: Normal soft tissue structures. Normal calvarium. There is mild cerebral atrophy with widening of the extra-axial spaces and ventricular dilatation. There are areas of decreased attenuation within the white matter tracts of the supratentorial brain, consistent with microvascular disease changes. Normal basal ganglia and thalami. Normal brainstem. Normal cerebellum. There is no intracranial hemorrhage. There are no findings of an acute ischemic infarction. Normal visualized paranasal sinuses. CT/Brain/Head without Contrast IMPRESSION: Chronic involutional changes of the brain. Recommend MRI brain if there is high clinical concern for stroke N.B. : The above Results were Read Back by Ervin Richardson DO to Kate Jimenes RN, and understanding confirmed on 12/02/2021 00:29:05 (ET). Electronically Signed: Ervin Richardson DO at 0:30 EST ,
[2021-12-02] VITALS (28 sets, daily range): BP systolic 92–145; BP diastolic 55–88; PULSE 82–108; RESP 16–29; TEMP 36.5–38.3; O2SAT 90–99
--- NOTE | 2021-12-02 00:03 | PN_ITS ---
Progress Note Made aware of patient's persistent fever of 103F with tachycardia, heart rate 116, blood pressure 145/75, with increased confusion. Patient is POD #0 status post 360 degrees fusion. Patient COVID-19 PCR is negative. 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 Patient has history of stroke 5 years ago with left-sided residual weakness. Patient had a recent right ear infection status post recent procedure. Cannot remember what the procedures were. She thinks he might have had the surgery in the [facility] system. Transfer to ICU for closer monitoring CT brain Switch antibiotics to Vancomycin and Zosyn ID and ICU consult Continue on IVF Monitor vitals closely Continue with scheduled tylenol, Toradol prn
--- NOTE | 2021-12-02 00:31 | NURSING ---
, Radha newby, called and updated that pt is being transferred to ICU bed 3 update on POC given at this time
[2021-12-02 00:45] LABS: Mucous, Urine 0 SEEN /hpf (<or=2+); Squamous Epithelial Cells - UA 0 SEEN /hpf (0-5)
[2021-12-02 00:50] LABS: Color, Urine Yellow (Yellow); Glucose, Dipstick Normal (Normal); Ketone-Dipstick Negative (Negative); Leukocyte Esterase-Dipstick 500 /ul (Negative); Nitrite-Dipstick Negative (Negative); Occult Blood-Urine 10 /ul (Negative); Protein-Dipstick Negative (Negative); Urine Bilirubin Dipstick Negative (Negative); Urine Clarity Clear (Clear); Urine Urobilinogen Normal (Normal)
--- NOTE | 2021-12-02 01:02 | NURSING ---
0000 report called to ICU LISSA KUMAR.
[2021-12-02 01:17] LABS: Troponin-I HS 62 pg/mL (3.0-78.0)
[2021-12-02 01:24] LABS: Bacteria RARE /hpf (None Seen); Red Blood Cells-Urine 0-5 SEEN /hpf (0-5); White Blood Cells 10-25 SEEN /hpf (0-5)
--- NOTE | 2021-12-02 02:42 | NURSING ---
rest of Narcan syringe wasted (1ml) with Veronica Martinez RN at this time
[2021-12-02] MEDS: Morphine 2 MG/ML Syringe IV (03:05)
[2021-12-02] MEDS: Insulin Lispro 100 UNIT/ML INSULN.PEN SC ×3 (05:17→21:46)
[2021-12-02 05:23] LABS: Absolute Lymphocyte Count 1.12 X10^3/uL (0.83-4.51); Absolute Neutrophil Count 7.4 X10^3/uL (2.0-7.7); Basophil# 0.03 X10^3/uL; Basophil% 0.3 % (0-1); Eosinophil# 0.01 X10^3/uL; Eosinophils% 0.1 % (0-5); Hematocrit 36.6 % (40-54); Hemoglobin 11.6 g/dL (13.0-16.5); Lymphocyte # 1.12 X10^3/ul (0.83-4.51); Lymphocyte % 11.4 % (19-41); Mean Corp Hgb Conc 31.7 g/dL (32-36); Mean Corpuscular Hgb 33.3 pg (27.0-32.0); Mean Corpuscular Volume 105.2 fL (80-94); Mean Platelet Vol. 9.7 fl (6.2-12.0); Monocyte# 1.26 X10^3/uL; Monocyte% 12.8 % (0-10); NRBC Flagged by Analyzer 0 % (0-5); Neutrophil # 7.35 X10^3/uL (2.7-7.7); Neutrophil % 74.8 % (47-70); Platelet Count 178 K/mm3 (150-450); RBC Distribution Width CV 13.9 % (11.6-14.6); RBC Distribution Width SD 53.1 fl (35.1-43.9); Red Blood Count 3.48 M/mm3 (4.6-6.2); White Blood Count 9.8 K/mm3 (4.4-11.0)
[2021-12-02 06:05] LABS: Anion Gap 4 (5-15); BUN 11 mg/dL (7-18); BUN/Creat Ratio 11.3 RATIO (10-20); Calcium,Total 8.2 mg/dL (8.5-10.1); Chloride 109 mmol/L (98-107); Creatinine, Serum 0.97 mg/dL (0.70-1.30); EST Glomerular Filtration Rate 83 mL/min (>60); Est Glom Filt Rate - Afr Amer 101 mL/min (>60); Estimated Creatinine Clearance 83.62 ml/min; Glucose 161 mg/dL (74-106); Magnesium 1.6 mg/dL (1.6-2.6); Phosphorus 3.1 mg/dL (2.5-4.9); Potassium 4.7 mmol/L (3.5-5.1); Sodium Level 140 mmol/L (136-145)
[2021-12-02] MEDS: Ketorolac 30 MG/ML Syringe IV ×3 (06:48→21:43)
[2021-12-02] MEDS: Ondansetron 4 MG/2 ML Vial IV (06:49)
[2021-12-02 06:56] LABS: Bedside Glucose 164 mg/dL (70-110)
--- NOTE | 2021-12-02 07:26 | CON.PCM.CC_ITS ---
Assessment & Plan Assessment/Plan (1) Postoperative fever: (2) Dyspnea on exertion: (3) DDD (degenerative disc disease), lumbar: PLAN: RECOMMENDATIONS: 1. Pain control per surgery 2. Could consider continuing antibiotics given fever 3. Avoid benzodiazepines if possible 4. Delirium protocol 5. Okay to leave the intensive care unit from my perspective 6. We'll sign off from a critical care perspective. Call with issues. IMPRESSIONS: 1. Postoperative fever with acute encephalopathy postop day #1 Patient with extensive operative intervention yesterday. Patient did have significant fever and confusion overnight. This does appear to be improving. There would be a concern for possible neuroleptic malignant syndrome overnight, but this should not resolve spontaneously. Patient is anxious, but does not have increased tone or rigors noted. Could consider treating for 48 hours with IV antibiotics pending cultures. It is possible this is an adverse reaction to Demerol alone. Patient has remained hemodynamically stable. Increased respiratory distress and confusion can be seen with high fevers. Would avoid b enzodiazepines if possible. Okay to treat pain per surgery. Proceed with delirium protocol. 2. Coronary artery disease status post CABG/hypertension/history of CVA/diabetes mellitus Complicates care, management, recovery and prognosis. Likely okay to leave the intensive care unit from my perspective. Patient can be continued on his baseline medications. No significant dysrhythmias have been noted overnight. HPI Consult Data Date of Consult: 12/02/21 HPI Narrative HPI Narrative: RICK GEORGE is a 61 M, with past medical history listed below, who presents to [facility] on 12/01/2021 secondary to an elective operative procedure for back pain. Patient reportedly started to have issues over 2 years ago and was referred by pain management to orthopedic surgery for further evaluation. Patient did have a history of a quadruple bypass in the past and insulin dependent diabetes. Patient had his operative procedure with no reported complications and was transferred to [facility]. Overnight, there was concerns for high fever and decreased responsiveness. Patient had received Demerol and other sedative medications perioperatively. Patient was transferred to the intensive care unit for closer monitoring and reportedly had a peak temperature of 103.8 ?F. Patient was on cefazolin postoperatively and chest x-ray was unremarkable. Since being in the intensive care unit, patient has done okay. Patient is reporting significant pain and nausea, but has not been hemodynamically unstable. Patient has been tachycardic. Patient states he has had some neuropathic type burning in his lower extremities. Patient is reporting a headache this morning, but no photosensitivity has been reported. Patient is not able to provide a full review of systems at this time secondary to concerns about his nausea. 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 Callous ulcer with fat layer exposed Cardiology follow-up encounter Cellulitis lft foot failed outpatient tx Cerebrovascular disease Chewing tobacco nicotine dependence Chronic skin ulcer with fat layer exposed Chronic ulcer of left foot with fat layer exposed CVA (cerebral vascular accident) Diabetes mellitus type 2 with complications Diabetic foot ulcer associated with type 2 diabetes mellitus Discoloration of skin of finger Environmental allergies Essential (primary) hypertension Finger osteomyelitis, right Frostbite of finger of right hand H/O stroke associated with blood clotting tendency Hammertoe of left foot Hammertoe of right foot History of frostbite HLD (hyperlipidemia) Hx of cardiovascular stress test Hx of echocardiogram Hx of edema Hypertension Insulin dependent diabetes mellitus Leg cramps Leg pain Neuropathy Non-compliance Non-healing surgical wound Nonhealing nonsurgical wound with fat layer exposed NSTEMI (non-ST elevated myocardial infarction) (~03/2018) Old myocardial infarction Other specified peripheral vascular diseases Segmental and somatic dysfunction of cervical region Segmental and somatic dysfunction of lumbar region Segmental and somatic dysfunction of thoracic region Skin ulcer of finger with fat layer exposed Syncope Thoracic neuritis Ulcer of right foot with fat layer exposed Xerosis cutis Xerosis of skin Home Medications ammonium lactate 57 gm TP PRN PRN 10/04/17 [History Last Taken Unknown] nortriptyline 50 mg PO QHS 10/04/17 [History Last Taken 03/25/20] biotin 1 mg PO DAILY 04/01/18 [History Last Taken 03/26/20] desonide 1 applic TOPICAL BID PRN 04/01/18 [History Last Taken 03/30/18] insulin lispro See Protocol SQ TIDCM 04/01/18 [History Last Taken 03/26/20] ketoconazole 1 applic TOPICAL DAILY PRN 04/01/18 [History Last Taken 03/30/18] metoprolol tartrate 25 mg tablet 12.5 mg PO BID tab MDD . 10/03/18 [History Last Taken 12/01/21] albuterol sulfate 90 mcg/actuation aerosol inhaler 2 puff INHALATION Q4H PRN g 08/13/19 [History Last Taken Unknown] amlodipine 10 mg tablet 10 mg PO DAILY 08/13/19 [History Last Taken 12/01/21] cetirizine 10 mg tablet 10 mg PO DAILY 08/13/19 [History Last Taken 03/26/20] simvastatin 10 mg tablet 10 mg PO QHS 08/13/19 [History Last Taken 03/25/20] cyanocobalamin (vitamin B-12) 1,000 mcg IM Q30D 08/22/19 [History Last Taken 03/26/20] aspirin 81 mg tablet,delayed release 162 mg PO DAILY tab MDD . 10/12/19 [Histo ry Last Taken 11/25/21] furosemide 20 mg tablet 20 mg PO BID PRN tab 10/12/19 [History Last Taken U nknown] lisinopril 5 mg PO QDAY 03/26/20 [History Last Taken 12/01/21] hydrocodone-acetaminophen 5-325mg 5mg-325mg 1 tab PO TID 10/27/21 [History Last Taken 12/01/21] metformin 500 mg tablet 500 mg PO BID 10/27/21 [History Last Taken Unknown] pregabalin 100 mg capsule 100 mg PO TID 10/27/21 [History Last Taken 12/01/21] acetaminophen 500 mg PO BID 11/17/21 [History Last Taken Unknown] baclofen 20 mg PO TID 11/17/21 [History Last Taken Unknown] cholecalciferol (vitamin D3) [Vitamin D3] 125 mcg PO DAILY 11/17/21 [History Last Taken Unknown] coenzyme Q10 100 mg PO QHS 11/17/21 [History Last Taken Unknown] docusate sodium 100 mg PO BID 11/17/21 [History Last Taken Unknown] insulin glargine [Lantus Solostar U-100 Insulin] 10 unit SUBCUT DAILY 11/17/21 [History Last Taken Unknown] montelukast [Singulair] 10 mg PO QHS 11/17/21 [History Last Taken Unknown] omega-3 fatty acids [Fish Oil] 1,000 mg PO DAILY 11/17/21 [History Last Taken Unknown] Allergy/AdvReac Type Severity Reaction Status Date / Time atorvastatin AdvReac Unknown Verified 12/01/21 06:46 Family History Father Diabetes Heart disease Hypertension Grandfather Diabetes Heart disease Grandmother Diabetes Mother Diabetes Hypertension Other Arthritis Surgical History Amputation toe H/O three vessel coronary artery bypass (~04/12/18) History of hand surgery Hx of cardiac catheterization Hx of elbow surgery Hx of left knee surgery Status post finger joint fusion Social History Smoking Status: Current every day smoker tobacco type: smokeless tobacco Smokeless tobacco user: chewing tobacco second hand exposure: Yes alcohol intake: current alcohol intake frequency: 0-2 drinks per day Alcohol t ype: beer substance use type: does not use additional social history: Does Take Aspirin Does not take Ibuprofen ROS ROS Narrative Limited. See HPI. Physical Exam Const alert and oriented x3 Constitutional Narrative: Slightly agitated. Appears uncomfortable. Nutritional Appearance: obese HEENT normocephalic, head/scalp atraumatic and moist oral mucous membranes Mouth: oral and palatal mucosa normal Eyes PERRL, EOMs intact bilaterally, conjunctivae normal and no scleral icterus Neck supple and no JVD Chest inspection of chest normal Resp normal respiratory effort Effort and Inspection: able to speak in complete sentences; Negative for uses accessory muscles Auscultation: Negative for rales, rhonchi, wheezes or diminished lung sounds Cardio regular rhythm, S1 normal heart sound, S2 normal heart sound, no murmurs, no rub and no gallops Rate: tachycardic GI normal to inspection, nondistended, normoactive bowel sounds Extremity no clubbing, cyanosis or edema Skin no rashes or lesions noted Skin Narrative: Incisions are clean, dry and intact Neuro oriented x3 and CN's II-XII intact bilaterally Psych Activity / Motor Behavior: restless Mood & Affect: anxious Lab / Micro Data Result Diagrams: 12/02/21 05:15 12/02/21 05:15 Labs: Laboratory Results - last 24 hr 12/01/21 15:53: POC Glucose 166 H 12/01/21 19:00: Total Creatine Kinase 255, Troponin I High Sens 58 12/01/21 20:14: POC Glucose 153 H 12/01/21 20:40: COVID-19 (CAM) Not Detected 12/01/21 21:16: Sodium 138, Potassium 4.6, Chloride 106, Carbon Dioxide 27.0, Anion Gap 5, BUN 13, Creatinine 1.01, Estim Creat Clear Calc 80.31, Est GFR (MDRD) Af Amer 97, Est GFR (MDRD) Non-Af 80, BUN/Creatinine Ratio 12.9, Glucose 168 H, Calcium 8.6, Total Bilirubin 0.60, AST 19, ALT 22, Alkaline Phosphatase 54, Troponin I High Sens 65, Total Protein 6.5, Albumin 3.1 L, Globulin 3.4, Albumin/Globulin Ratio 0.9 12/01/21 21:25: WBC 8.9, RBC 3.58 L, Hgb 12.3 L, Hct 37.1 L, MCV 103.6 H, MCH 34.4 H, MCHC 33.2, RDW Std Deviation 53.3 H, RDW Coeff of Mayi 13.9, Plt Count 195, MPV 10.0, Immature Gran % (Auto) 0.800, Neut % (Auto) 77.7 H, Lymph % (Auto) 8.4 L, [place] % (Auto) 12.8 H, Eos % (Auto) 0.1, Baso % (Auto) 0.2, Absolute Neuts (auto) 6.9, Absolute Lymphs (auto) 0.74 L, Nucleated RBC % 0 12/01/21 21:45: Urine Color Yellow, Urine Clarity Clear, Urine pH 7.0, Ur Specific [place] 1.010, Urine Protein Negative, Urine Glucose (UA) Normal, Urine Ketones Negative, Urine Occult Blood 10 H, Urine Nitrite Negative, Urine Bilirubin Negative, Urine Urobilinogen Normal, Ur Leukocyte Esterase 500 H, Urine RBC 0-5 SEEN, Urine WBC 10-25 SEEN, Ur Squamous Epith Cells 0 SEEN, Urine Bacteria RARE, Urine Mucus 0 SEEN 12/01/21 22:20: Lactic Acid 1.3 12/01/21 22:20: PT 13.2, INR 1.1, APTT 26.8 12/01/21 22:54: POC Glucose 151 H 12/02/21 00:45: Troponin I High Sens 62 12/02/21 05:07: POC Glucose 164 H 12/02/21 05:15: WBC 9.8, RBC 3.48 L, Hgb 11.6 L, Hct 36.6 L, MCV 105.2 H, MCH 33.3 H, MCHC 31.7 L, RDW Std Deviation 53.1 H, RDW Coeff of Mayi 13.9, Plt Count 178, MPV 9.7, Immature Gran % (Auto) 0.600, Neut % (Auto) 74.8 H, Lymph % (Auto) 11.4 L, [place] % (Auto) 12.8 H, Eos % (Auto) 0.1, Baso % (Auto) 0.3, Absolute Neuts (auto) 7.4, Absolute Lymphs (auto) 1.12, Nucleated RBC % 0 12/02/21 05:15: Sodium 140, Potassium 4.7, Chloride 109 H, Carbon Dioxide 27.0, Anion Gap 4 L, BUN 11, Creatinine 0.97, Estim Creat Clear Calc 83.62, Est GFR (MDRD) Af Amer 101, Est GFR (MDRD) Non-Af 83, BUN/Creatinine Ratio 11.3, Glucose 161 H, Calcium 8.2 L, Phosphorus 3.1, Magnesium 1.6 Micro: Microbiology 12/01/21 21:45 Urine Catheter - Catheter Legionella Antigen - Final 12/01/21 21:45 Urine Catheter - Catheter Streptococcus pneumoniae Antigen (M - Final ABG Data ABG results: ABG 12/01/21 18:51 Specimen Type ART Sample Site R Radial pH 7.40 Bicarbonate Actual 27.2 H Total CO2 29 Base Excess 2 O2 Saturation 92 L ABG pCO2 43.8 ABG pO2 65 L Chaz Test Positive O2 Delivery Device Cannula Liter Flow 2.5 Radiology Impression Spine X-Ray 12/01/21 09:30 IMPRESSION: The localization instrument is seen along the anterior aspect of the L5-S1 disc space level. Electronically Signed: Chapo Viramontes MD at 10:21 EST , Spine X-Ray 12/01/21 09:43 IMPRESSION: Limited lateral view shows anatomic alignment of anterior fusion of L5 and S1. Fusion was performed to stabilize a pars defect and spondylolisthesis at L5/S1 Electronically Signed: Sadiq Arango MD at 17:38 EST , Chest X-Ray 12/01/21 20:44 IMPRESSION: Perihilar interstitial prominence and possible left infrahilar infiltrate/atelectasis. Electronically Signed: Dannie Cardoza DO at 21:39 EST , Brain CT 12/01/21 23:32 IMPRESSION: Chronic involutional changes of the brain. Recommend MRI brain if there is high clinical concern for stroke N.B. : The above Results were Read Back by Ervin Richardson DO to Kate Jimenes RN, and understanding confirmed on 12/02/2021 00:29:05 (ET). Electronically Signed: Ervin Richardson DO at 0:30 EST , Charges/Coding Visit Charges Inpatient E&M: 42622 Init Hosp L2
[2021-12-02] MEDS: LORazepam 1 MG Tablet 2 MG PO (10:20)
--- NOTE | 2021-12-02 10:27 | PCM.PN.HOSP ---
Subjective Subjective Continue to have some lower extremity pain after surgery. He is confused and did not know why he was in the hospital or what surgery he had. Vital signs are stable and he can transfer out of the unit Objective Data Objective Data Vital Signs: Vital Signs Temp Pulse Resp BP Pulse Ox 99.2 F H 95 18 105/61 90 12/02/21 09:59 12/02/21 09:59 12/02/21 09:59 12/02/21 09:59 12/02/21 09:59 Oxygen Flow Rate (L/min) 2 Oxygen Delivery Method Room Air Weight: 220 lb 3.869 oz Body Mass Index (BMI) 31.9 Intake & Output: Intake and Output for Last 24 Hours 12/01/21 12/02/21 12/03/21 03:59 03:59 03:59 Intake Total 4234.59 / 4234.59 50 / 50 Output Total 1225 / 1225 750 / 750 Balance 3009.59 / 3009.59 -700 / -700 Lab / Micro Data Result Diagrams: 12/02/21 05:15 12/02/21 05:15 Labs: Laboratory Results - last 24 hr 12/01/21 15:53: POC Glucose 166 H 12/01/21 19:00: Total Creatine Kinase 255, Troponin I High Sens 58 12/01/21 20:14: POC Glucose 153 H 12/01/21 20:40: COVID-19 (CAM) Not Detected 12/01/21 21:16: Sodium 138, Potassium 4.6, Chloride 106, Carbon Dioxide 27.0, Anion Gap 5, BUN 13, Creatinine 1.01, Estim Creat Clear Calc 80.31, Est GFR (MDRD) Af Amer 97, Est GFR (MDRD) Non-Af 80, BUN/Creatinine Ratio 12.9, Glucose 168 H, Calcium 8.6, Total Bilirubin 0.60, AST 19, ALT 22, Alkaline Phosphatase 54, Troponin I High Sens 65, Total Protein 6.5, Albumin 3.1 L, Globulin 3.4, Albumin/Globulin Ratio 0.9 12/01/21 21:25: WBC 8.9, RBC 3.58 L, Hgb 12.3 L, Hct 37.1 L, MCV 103.6 H, MCH 34.4 H, MCHC 33.2, RDW Std Deviation 53.3 H, RDW Coeff of Mayi 13.9, Plt Count 195, MPV 10.0, Immature Gran % (Auto) 0.800, Neut % (Auto) 77.7 H, Lymph % (Auto) 8.4 L, [place] % (Auto) 12.8 H, Eos % (Auto) 0.1, Baso % (Auto) 0.2, Absolute Neuts (auto) 6.9, Absolute Lymphs (auto) 0.74 L, Nucleated RBC % 0 12/01/21 21:45: Urine Color Yellow, Urine Clarity Clear, Urine pH 7.0, Ur Specific [place] 1.010, Urine Protein Negative, Urine Glucose (UA) Normal, Urine Ketones Negative, Urine Occult Blood 10 H, Urine Nitrite Negative, Urine Bilirubin Negative, Urine Urobilinogen Normal, Ur Leukocyte Esterase 500 H, Urine RBC 0-5 SEEN, Urine WBC 10-25 SEEN, Ur Squamous Epith Cells 0 SEEN, Urine Bacteria RARE, Urine Mucus 0 SEEN 12/01/21 22:20: Lactic Acid 1.3 12/01/21 22:20: PT 13.2, INR 1.1, APTT 26.8 12/01/21 22:54: POC Glucose 151 H 12/02/21 00:45: Troponin I High Sens 62 12/02/21 05:07: POC Glucose 164 H 12/02/21 05:15: WBC 9.8, RBC 3.48 L, Hgb 11.6 L, Hct 36.6 L, MCV 105.2 H, MCH 33.3 H, MCHC 31.7 L, RDW Std Deviation 53.1 H, RDW Coeff of Mayi 13.9, Plt Count 178, MPV 9.7, Immature Gran % (Auto) 0.600, Neut % (Auto) 74.8 H, Lymph % (Auto) 11.4 L, [place] % (Auto) 12.8 H, Eos % (Auto) 0.1, Baso % (Auto) 0.3, Absolute Neuts (auto) 7.4, Absolute Lymphs (auto) 1.12, Nucleated RBC % 0 12/02/21 05:15: Sodium 140, Potassium 4.7, Chloride 109 H, Carbon Dioxide 27.0, Anion Gap 4 L, BUN 11, Creatinine 0.97, Estim Creat Clear Calc 83.62, Est GFR (MDRD) Af Amer 101, Est GFR (MDRD) Non-Af 83, BUN/Creatinine Ratio 11.3, Glucose 161 H, Calcium 8.2 L, Phosphorus 3.1, Magnesium 1.6 Micro: Microbiology 12/01/21 21:45 Urine Catheter - Catheter Legionella Antigen - Final 12/01/21 21:45 Urine Catheter - Catheter Streptococcus pneumoniae Antigen (M - Final 11/23/21 13:41 Swab (Method) Nasal Screen MRSA/MSSA - Final ABG Data ABG results: ABG 12/01/21 18:51 Specimen Type ART Sample Site R Radial pH 7.40 Bicarbonate Actual 27.2 H Total CO2 29 Base Excess 2 O2 Saturation 92 L ABG pCO2 43.8 ABG pO2 65 L Chaz Test Positive O2 Delivery Device Cannula Liter Flow 2.5 Radiography Diagnostic Testing: Radiology Impression Spine X-Ray 12/01/21 09:43 IMPRESSION: Limited lateral view shows anatomic alignment of anterior fusion of L5 and S1. Fusion was performed to stabilize a pars defect and spondylolisthesis at L5/S1 Electronically Signed: Sadiq Arango MD at 17:38 EST , Spine X-Ray 12/01/21 10:54 IMPRESSION: Status post anterior fusion with prosthetic disc placement. Electronically Signed: Chapo Viramontes MD at 9:54 EST , Chest X-Ray 12/01/21 20:44 IMPRESSION: Perihilar interstitial prominence and possible left infrahilar infiltrate/atelectasis. Electronically Signed: Dannie Cardoza DO at 21:39 EST , Brain CT 12/01/21 23:32 IMPRESSION: Chronic involutional changes of the brain. Recommend MRI brain if there is high clinical concern for stroke N.B. : The above Results were Read Back by Ervin Richardson DO to Kate Jimenes RN, and understanding confirmed on 12/02/2021 00:29:05 (ET). Electronically Signed: Ervin Richardson DO at 0:30 EST , Physical Exam Const alert, oriented x3 and no apparent distress General Appearance: cooperative HEENT normocephalic and moist oral mucous membranes Eyes PERRL, EOMs intact bilaterally and conjunctivae normal Neck supple and no JVD Resp normal respiratory effort, no retractions, no use of accessory muscles and clear to auscultation bilaterally Auscultation: Negative for crackles, rales, rhonchi or wheezes Cardio regular rhythm, S1 normal heart sound, S2 normal heart sound and no murmurs Rate: tachycardic GI soft to palpation, non-tender and non-distended; Negative for hepatosplenomegaly Extremity no clubbing, cyanosis or edema Skin no rashes or lesions noted Skin Narrative: Incision C/D/I Neuro no focal motor deficits and no sensory deficits noted Psych Mood & Affect: flat affect Assessment & Plan Assessment/Plan (1) DDD (degenerative disc disease), lumbar: PLAN: 1. Spondylolisthesis L5-S1 with instability status post posterior fusion on 12/01/2021 with postoperative confusion, and fevers with metabolic encephalopathy ?Was transferred to the ICU overnight secondary to temperatures and increased confusion ?Continue with broad-spectrum antibiotics and cultures are pending ?He is stable to transfer out of the unit, appreciate critical care's assistance ?Pain management per primary ?She still seems a little bit confused, he did not know why he was here in the hospital. This could be a reaction to anesthesia versus an infection, Covid test was negative ?Continue with Lyrica 2. Coronary artery disease status post CABG/HTN/CAD ?Echo from 2020 with an EF of 55% and RVSP of 26 mmHg ?Can continue with his home blood pressure medications ?Continue with Ativan 3. DM2 ?Hold home on Metformin and place him on sliding scale insulin ?Accu-Cheks AC dust ?We will adjust as necessary DVT: SCDs Charges/Coding Visit Charges Inpatient E&M: 04280 Subs Hosp L2
[2021-12-02] MEDS: Acetaminophen 325 MG Tablet 650 MG PO ×2 (10:30→19:47)
[2021-12-02] MEDS: Senna/Docusate Sodium 1 Tablet 2 TABLET PO ×2 (10:46→21:38)
[2021-12-02] MEDS: Metoprolol Tartrate 25 MG Tablet 12.5 MG PO ×2 (10:48→21:38)
[2021-12-02] MEDS: Ensure Surgery 237 ML LIQUID PO ×2 (10:50→17:26)
[2021-12-02 10:56] LABS: Bedside Glucose 150 mg/dL (70-110)
--- NOTE | 2021-12-02 13:12 | PCM.CONS.GEN ---
Assessment & Plan Assessment/Plan (1) Postoperative fever: PLAN: Developed fever and confusion s/p 12/[address] Meyer and Dr. Cook for posterior fusion of L5-S1, lateral laminectomy L5-S1 on the left and right, anterior lumbar fusion L5-S1, application of anterior spine plate L5-S1, insertion of cage L5-S1 and use of allograft and autograft. No further fever, bcx pending. On zosyn. If fever recurs, would change to vanc/cefepime for SERVICE COORDINATOR penetration and nosocomial coverage. Fever may be medication related. Will follow, thank you, d/w nursing HPI Consult Data Date of Consult: 12/02/21 HPI Narrative HPI Narrative: RICK GEORGE, is a 61 M who presented with fever and encephalopathy after 12/01 posterior fusion of L5-S1, lateral laminectomy L5-S1 on the left and right, anterior lumbar fusion L5-S1, application of anterior spine plate L5-S1, insertion of cage L5-S1 and use of allograft and autograft. Surgeons were Dr. Meyer and Dr. Cook. Admitted, given dose of vanc, remains on zosyn. No further fever, remains in icu, still some encephalopathy. Pt unable to provide history. Reports headache, abd pain, nausea, cough, neck pain. Full ROS performed and neg except as noted above PFSH Medical History Acute congestive heart failure Alcohol use Arthritis Atherosclerotic heart disease of [place] coronary artery without angina pectoris Back pain Boutonniere deformity of finger of right hand Callous ulcer with fat layer exposed Cardiology follow-up encounter Cellulitis lft foot failed outpatient tx Cerebrovascular disease Chewing tobacco nicotine dependence Chronic skin ulcer with fat layer exposed Chronic ulcer of left foot with fat layer exposed CVA (cerebral vascular accident) Diabetes mellitus type 2 with complications Diabetic foot ulcer associated with type 2 diabetes mellitus Discoloration of skin of finger Environmental allergies Essential (primary) hypertension Finger osteomyelitis, right Frostbite of finger of right hand H/O stroke associated with blood clotting tendency Hammertoe of left foot Hammertoe of right foot History of frostbite HLD (hyperlipidemia) Hx of cardiovascular stress test Hx of echocardiogram Hx of edema Hypertension Insulin dependent diabetes mellitus Leg cramps Leg pain Neuropathy Non-compliance Non-healing surgical wound Nonhealing nonsurgical wound with fat layer exposed NSTEMI (non-ST elevated myocardial infarction) (~03/2018) Old myocardial infarction Other specified peripheral vascular diseases Segmental and somatic dysfunction of cervical region Segmental and somatic dysfunction of lumbar region Segmental and somatic dysfunction of thoracic region Skin ulcer of finger with fat layer exposed Syncope Thoracic neuritis Ulcer of right foot with fat layer exposed Xerosis cutis Xerosis of skin Home Medications ammonium lactate 57 gm TP PRN PRN 10/04/17 [History Last Taken Unknown] nortriptyline 50 mg PO QHS 10/04/17 [History Last Taken 03/25/20] biotin 1 mg PO DAILY 04/01/18 [History Last Taken 03/26/20] desonide 1 applic TOPICAL BID PRN 04/01/18 [History Last Taken 03/30/18] insulin lispro See Protocol SQ TIDCM 04/01/18 [History Last Taken 03/26/20] ketoconazole 1 applic TOPICAL DAILY PRN 04/01/18 [History Last Taken 03/30/18] metoprolol tartrate 25 mg tablet 12.5 mg PO BID tab MDD . 07/19/18 [History Last Taken 12/01/21] albuterol sulfate 90 mcg/actuation aerosol inhaler 2 puff INHALATION Q4H PRN g 08/13/19 [History Last Taken Unknown] amlodipine 10 mg tablet 10 mg PO DAILY 08/13/19 [History Last Taken 12/01/21] cetirizine 10 mg tablet 10 mg PO DAILY 08/13/19 [History Last Taken 03/26/20] simvastatin 10 mg tablet 10 mg PO QHS 08/13/19 [History Last Taken 03/25/20] cyanocobalamin (vitamin B-12) 1,000 mcg IM Q30D 08/22/19 [History Last Taken 03/26/20] aspirin 81 mg tablet,delayed release 162 mg PO DAILY tab MDD . 10/12/19 [History Last Taken 11/25/21] furosemide 20 mg tablet 20 mg PO BID PRN tab 10/12/19 [History Last Taken Unknown] lisinopril 5 mg PO QDAY 03/26/20 [History Last Taken 12/01/21] hydrocodone-acetaminophen 5-325mg 5mg-325mg 1 tab PO TID 10/27/21 [History Last Taken 12/01/21] metformin 500 mg tablet 500 mg PO BID 10/27/21 [History Last Taken Unknown] pregabalin 100 mg capsule 100 mg PO TID 10/27/21 [History Last Taken 12/01/21] acetaminophen 500 mg PO BID 11/17/21 [History Last Taken Unknown] baclofen 20 mg PO TID 11/17/21 [History Last Taken Unknown] cholecalciferol (vitamin D3) [Vitamin D3] 125 mcg PO DAILY 11/17/21 [History Last Taken Unknown] coenzyme Q10 100 mg PO QHS 11/17/21 [History Last Taken Unknown] docusate sodium 100 mg PO BID 11/17/21 [History Last Taken Unknown] insulin glargine [Lantus Solostar U-100 Insulin] 10 unit SUBCUT DAILY 11/17/21 [History Last Taken Unknown] montelukast [Singulair] 10 mg PO QHS 11/17/21 [History Last Taken Unknown] omega-3 fatty acids [Fish Oil] 1,000 mg PO DAILY 11/17/21 [History Last Taken Unknown] Allergy/AdvReac Type Severity Reaction Status Date / Time atorvastatin AdvReac Unknown Verified 12/01/21 06:46 Family History Father Diabetes Heart disease Hypertension Grandfather Diabetes Heart disease Grandmother Diabetes Mother Diabetes Hypertension Other Arthritis Surgical History Amputation toe H/O three vessel coronary artery bypass (~04/12/18) History of hand surgery Hx of cardiac catheterization Hx of elbow surgery Hx of left knee surgery Status post finger joint fusion Social History Smoking Status: Current every day smoker tobacco type: smokeless tobacco Smokeless tobacco user: chewing tobacco second hand exposure: Yes alcohol intake: current alcohol intake frequency: 0-2 drinks per day Alcohol type: beer substance use type: does not use additional social history: Does Take Aspirin Does not take Ibuprofen Physical Exam Const Constitutional Narrative: oriented x1, in pain, not cooperating with PT HEENT normocephalic and head/scalp atraumatic Eyes PERRL and EOMs intact bilaterally Neck supple and No nodes Resp normal air movement and clear to auscultation bilaterally Cardio regular rate and regular rhythm GI soft to palpation, non-tender and non-distended Extremity no clubbing, cyanosis or edema Skin no rashes or lesions noted Skin Narrative: lumbar incision bandaged Neuro CN's II-XII intact bilaterally Lab / Micro Data Result Diagrams: 12/02/21 05:15 12/02/21 05:15 Labs: Laboratory Results - last 24 hr 12/01/21 15:53: POC Glucose 166 H 12/01/21 19:00: Total Creatine Kinase 255, Troponin I High Sens 58 12/01/21 20:14: POC Glucose 153 H 12/01/21 20:40: COVID-19 (CAM) Not Detected 12/01/21 21:16: Sodium 138, Potassium 4.6, Chloride 106, Carbon Dioxide 27.0, Anion Gap 5, BUN 13, Creatinine 1.01, Estim Creat Clear Calc 80.31, Est GFR (MDRD) Af Amer 97, Est GFR (MDRD) Non-Af 80, BUN/Creatinine Ratio 12.9, Glucose 168 H, Calcium 8.6, Total Bilirubin 0.60, AST 19, ALT 22, Alkaline Phosphatase 54, Troponin I High Sens 65, Total Protein 6.5, Albumin 3.1 L, Globulin 3.4, Albumin/Globulin Ratio 0.9 12/01/21 21:25: WBC 8.9, RBC 3.58 L, Hgb 12.3 L, Hct 37.1 L, MCV 103.6 H, MCH 34.4 H, MCHC 33.2, RDW Std Deviation 53.3 H, RDW Coeff of Mayi 13.9, Plt Count 195, MPV 10.0, Immature Gran % (Auto) 0.800, Neut % (Auto) 77.7 H, Lymph % (Auto) 8.4 L, [place] % (Auto) 12.8 H, Eos % (Auto) 0.1, Baso % (Auto) 0.2, Absolute Neuts (auto) 6.9, Absolute Lymphs (auto) 0.74 L, Nucleated RBC % 0 12/01/21 21:45: Urine Color Yellow, Urine Clarity Clear, Urine pH 7.0, Ur Specific [place] 1.010, Urine Protein Negative, Urine Glucose (UA) Normal, Urine Ketones Negative, Urine Occult Blood 10 H, Urine Nitrite Negative, Urine Bilirubin Negative, Urine Urobilinogen Normal, Ur Leukocyte Esterase 500 H, Urine RBC 0-5 SEEN, Urine WBC 10-25 SEEN, Ur Squamous Epith Cells 0 SEEN, Urine Bacteria RARE, Urine Mucus 0 SEEN 12/01/21 22:20: Lactic Acid 1.3 12/01/21 22:20: PT 13.2, INR 1.1, APTT 26.8 12/01/21 22:54: POC Glucose 151 H 12/02/21 00:45: Troponin I High Sens 62 12/02/21 05:07: POC Glucose 164 H 12/02/21 05:15: WBC 9.8, RBC 3.48 L, Hgb 11.6 L, Hct 36.6 L, MCV 105.2 H, MCH 33.3 H, MCHC 31.7 L, RDW Std Deviation 53.1 H, RDW Coeff of Mayi 13.9, Plt Count 178, MPV 9.7, Immature Gran % (Auto) 0.600, Neut % (Auto) 74.8 H, Lymph % (Auto) 11.4 L, [place] % (Auto) 12.8 H, Eos % (Auto) 0.1, Baso % (Auto) 0.3, Absolute Neuts (auto) 7.4, Absolute Lymphs (auto) 1.12, Nucleated RBC % 0 12/02/21 05:15: Sodium 140, Potassium 4.7, Chloride 109 H, Carbon Dioxide 27.0, Anion Gap 4 L, BUN 11, Creatinine 0.97, Estim Creat Clear Calc 83.62, Est GFR (MDRD) Af Amer 101, Est GFR (MDRD) Non-Af 83, BUN/Creatinine Ratio 11.3, Glucose 161 H, Calcium 8.2 L, Phosphorus 3.1, Magnesium 1.6 12/02/21 10:45: POC Glucose 150 H Micro: Microbiology 12/01/21 21:45 Urine Catheter - Catheter Legionella Antigen - Final 12/01/21 21:45 Urine Catheter - Catheter Streptococcus pneumoniae Antigen (M - Final ABG Data ABG results: ABG 12/01/21 18:51 Specimen Type ART Sample Site R Radial pH 7.40 Bicarbonate Actual 27.2 H Total CO2 29 Base Excess 2 O2 Saturation 92 L ABG pCO2 43.8 ABG pO2 65 L Chaz Test Positive O2 Delivery Device Cannula Liter Flow 2.5 Radiology Impression Spine X-Ray 12/01/21 09:43 IMPRESSION: Limited lateral view shows anatomic alignment of anterior fusion of L5 and S1. Fusion was performed to stabilize a pars defect and spondylolisthesis at L5/S1 Electronically Signed: Sadiq Arango MD at 17:38 EST , Spine X-Ray 12/01/21 10:54 IMPRESSION: Status post anterior fusion with prosthetic disc placement. Electronically Signed: Chapo Viramontes MD at 9:54 EST , Chest X-Ray 12/01/21 20:44 IMPRESSION: Perihilar interstitial prominence and possible left infrahilar infiltrate/atelectasis. Electronically Signed: Dannie Cardoza DO at 21:39 EST , Brain CT 12/01/21 23:32 IMPRESSION: Chronic involutional changes of the brain. Recommend MRI brain if there is high clinical concern for stroke N.B. : The above Results were Read Back by Ervin Richardson DO to Kate Jimenes RN, and understanding confirmed on 12/02/2021 00:29:05 (ET). Electronically Signed: Ervin Richardson DO at 0:30 EST ,
--- NOTE | 2021-12-02 13:39 | NURSING ---
Dr Brooke on floor, shown right edematous ear, no new orders.
--- NOTE | 2021-12-02 15:14 | PCM.PN.ORT ---
Subjective Subjective Patient is being seen on postop day #1 in the intensive care unit. Apparently the patient became disoriented on the third floor yesterday postoperatively. He also developed a fever. In addition I found out from intensive care nursing that this patient may be a heavy drinker. This is not documented in my chart probably because if true it was hitting from me by the patient. I do not know if this condition has anything to do with withdrawal or not. It something to keep in mind however. Because he seems to be suffering some type of encephalopathy. I questioned him today he was not able to tell me whether his leg pain in the left was gone or not. Therapy was going to get him up and ambulate him as soon as I leave. I discussed the case with Dr. Brooke. Last night I also discussed the case with Dr. Minor. He may be getting moved later today her back to the floor. I have acknowledged Dr. Abdi's consult and Dr. Brooke's consult. I will round on him again tomorrow. Objective Data Objective Data Vital Signs: Vital Signs Temp Pulse Resp BP Pulse Ox 98.6 F 82 18 111/66 95 12/02/21 12:00 12/02/21 13:00 12/02/21 13:00 12/02/21 13:00 12/02/21 13:00 Oxygen Flow Rate (L/min) 2 Oxygen Delivery Method Nasal Cannula Weight: 220 lb 3.869 oz Body Mass Index (BMI) 31.9 Intake & Output: Intake and Output for Last 24 Hours 11/30/21 12/01/21 12/02/21 23:59 23:59 23:59 Intake Total 3694.59 / 3694.59 880 / 880 Output Total 1225 / 1225 900 / 900 Balance 2469.59 / 2469.59 -20 / -20 Lab / Micro Data Result Diagrams: 12/02/21 05:15 12/02/21 05:15 Labs: Laboratory Results - last 24 hr 12/01/21 15:53: POC Glucose 166 H 12/01/21 19:00: Total Creatine Kinase 255, Troponin I High Sens 58 12/01/21 20:14: POC Glucose 153 H 12/01/21 20:40: COVID-19 (CAM) Not Detected 12/01/21 21:16: Sodium 138, Potassium 4.6, Chloride 106, Carbon Dioxide 27.0, Anion Gap 5, BUN 13, Creatinine 1.01, Estim Creat Clear Calc 80.31, Est GFR (MDRD) Af Amer 97, Est GFR (MDRD) Non-Af 80, BUN/Creatinine Ratio 12.9, Glucose 168 H, Calcium 8.6, Total Bilirubin 0.60, AST 19, ALT 22, Alkaline Phosphatase 54, Troponin I High Sens 65, Total Protein 6.5, Albumin 3.1 L, Globulin 3.4, Albumin/Globulin Ratio 0.9 12/01/21 21:25: WBC 8.9, RBC 3.58 L, Hgb 12.3 L, Hct 37.1 L, MCV 103.6 H, MCH 34.4 H, MCHC 33.2, RDW Std Deviation 53.3 H, RDW Coeff of Mayi 13.9, Plt Count 195, MPV 10.0, Immature Gran % (Auto) 0.800, Neut % (Auto) 77.7 H, Lymph % (Auto) 8.4 L, [place] % (Auto) 12.8 H, Eos % (Auto) 0.1, Baso % (Auto) 0.2, Absolute Neuts (auto) 6.9, Absolute Lymphs (auto) 0.74 L, Nucleated RBC % 0 12/01/21 21:45: Urine Color Yellow, Urine Clarity Clear, Urine pH 7.0, Ur Specific [place] 1.010, Urine Protein Negative, Urine Glucose (UA) Normal, Urine Ketones Negative, Urine Occult Blood 10 H, Urine Nitrite Negative, Urine Bilirubin Negative, Urine Urobilinogen Normal, Ur Leukocyte Esterase 500 H, Urine RBC 0-5 SEEN, Urine WBC 10-25 SEEN, Ur Squamous Epith Cells 0 SEEN, Urine Bacteria RARE, Urine Mucus 0 SEEN 12/01/21 22:20: Lactic Acid 1.3 12/01/21 22:20: PT 13.2, INR 1.1, APTT 26.8 12/01/21 22:54: POC Glucose 151 H 12/02/21 00:45: Troponin I High Sens 62 12/02/21 05:07: POC Glucose 164 H 12/02/21 05:15: WBC 9.8, RBC 3.48 L, Hgb 11.6 L, Hct 36.6 L, MCV 105.2 H, MCH 33.3 H, MCHC 31.7 L, RDW Std Deviation 53.1 H, RDW Coeff of Mayi 13.9, Plt Count 178, MPV 9.7, Immature Gran % (Auto) 0.600, Neut % (Auto) 74.8 H, Lymph % (Auto) 11.4 L, [place] % (Auto) 12.8 H, Eos % (Auto) 0.1, Baso % (Auto) 0.3, Absolute Neuts (auto) 7.4, Absolute Lymphs (auto) 1.12, Nucleated RBC % 0 12/02/21 05:15: Sodium 140, Potassium 4.7, Chloride 109 H, Carbon Dioxide 27.0, Anion Gap 4 L, BUN 11, Creatinine 0.97, Estim Creat Clear Calc 83.62, Est GFR (MDRD) Af Amer 101, Est GFR (MDRD) Non-Af 83, BUN/Creatinine Ratio 11.3, Glucose 161 H, Calcium 8.2 L, Phosphorus 3.1, Magnesium 1.6 12/02/21 10:45: POC Glucose 150 H Micro: Microbiology 12/01/21 21:45 Urine Catheter - Catheter Legionella Antigen - Final 12/01/21 21:45 Urine Catheter - Catheter Streptococcus pneumoniae Antigen (M - Final 11/23/21 13:41 Swab (Method) Nasal Screen MRSA/MSSA - Final ABG Data ABG results: ABG 12/01/21 18:51 Specimen Type ART Sample Site R Radial pH 7.40 Bicarbonate Actual 27.2 H Total CO2 29 Base Excess 2 O2 Saturation 92 L ABG pCO2 43.8 ABG pO2 65 L Chaz Test Positive O2 Delivery Device Cannula Liter Flow 2.5 Radiography Diagnostic Testing: Radiology Impression Spine X-Ray 12/01/21 09:43 IMPRESSION: Limited lateral view shows anatomic alignment of anterior fusion of L5 and S1. Fusion was performed to stabilize a pars defect and spondylolisthesis at L5/S1 Electronically Signed: Sadiq Arango MD at 17:38 EST , Spine X-Ray 12/01/21 10:54 IMPRESSION: Status post anterior fusion with prosthetic disc placement. Electronically Signed: Chapo Viramontes MD at 9:54 EST , Chest X-Ray 12/01/21 20:44 IMPRESSION: Perihilar interstitial prominence and possible left infrahilar infiltrate/atelectasis. Electronically Signed: Dannie Cardoza DO at 21:39 EST , Brain CT 12/01/21 23:32 IMPRESSION: Chronic involutional changes of the brain. Recommend MRI brain if there is high clinical concern for stroke N.B. : The above Results were Read Back by Ervin Richardson DO to Kate Jimenes RN, and understanding confirmed on 12/02/2021 00:29:05 (ET). Electronically Signed: Ervin Richardson DO at 0:30 EST ,
--- NOTE | 2021-12-02 15:26 | CASEMGMT ---
RN CM NOTE: Initial RN CM assessment deferred at this time d/t pt confusion. RN CM to attempt at a later time when pt oriented. Sukhdev BSN RN CM
--- NOTE | 2021-12-02 16:10 | CASEMGMT ---
RN BRIT PRIME MINISTER BRIT to room to meet with patient and sig other, Radha, for initial transition planning/care coordination assessment. LISAS PEREA introduced self and role at [facility]. Pt sitting up in recliner chair. Confused. The following information obtained from Radha. Care providers, pharmacy, and demographics verified/updated at this time. PCP: Dr Escalante Specialists: Dr Meyer-ortho, Dr Aparicio-podiatry, Dr Ring-cardiology Preferred Pharmacy: [facility] Retail Insurance: [employer] Prescription Benefit: Yes Living Will/HPOA: Pt does not currently have LW/HCPOA LNOK: Sig other, Radha, of 35 yrs. They have 3 children together: 2 sons: Brent and Jey Espinoza, and one daughter, Ila Espinoza Living Arrangements: Lives w/sig other, Radha, in 2-story home w/3 steps to enter. Bed and bath on first floor. Pt mostly independent w/ADL's. He is able to bath/dress self, but has been declining past couple of months d/t pain and Radha assists w/personal care some when she is home. She works full-time and is not home often, as she often does (6) 12-hour shifts/week. Radha does most home mgmt tasks. Pt does most of the grocery shopping. ETOH: Radha states pt told staff he drinks 8-9 beers/day, but she states she was not aware of this. She states he is often awake during the night, sitting up to read, while she is sleeping. She states she has observed him drinking some, but usually only 1-2 beers a couple times a week. Pt does not smoke. Transportation: Pt and Radha both drive DME: Has the following DME: walker, crutches, functioning glucometer HHC/SNF: No hx of either. PLAN: TBD by course of treatment and progress w/therapy. Anticipate d/c home w/support of sig other once confusion resolves. Sukhdev SIMMS RN, CM
[2021-12-02 16:51] LABS: Bedside Glucose 193 mg/dL (70-110)
--- NOTE | 2021-12-02 17:43 | NURSING ---
report called to Suzie. pt transported with belongings, call to Radha informed of transfer.
[2021-12-02] MEDS: Simvastatin 10 MG Tablet PO (21:38)
[2021-12-02] MEDS: Montelukast 10 MG Tablet PO (21:38)
[2021-12-02] MEDS: 0.9% Saline Lock 10 ML Syringe IV (21:43)
[2021-12-02 21:57] LABS: Bedside Glucose 188 mg/dL (70-110)
[2021-12-03] VITALS (10 sets, daily range): BP systolic 137–170; BP diastolic 74–95; PULSE 88–112; RESP 16–20; TEMP 36.6–37.6; O2SAT 91–94
[2021-12-03] MEDS: Acetaminophen 325 MG Tablet 650 MG PO ×2 (02:45→09:03)
[2021-12-03] MEDS: Insulin Lispro 100 UNIT/ML INSULN.PEN SC ×4 (05:45→21:15)
[2021-12-03] MEDS: Ketorolac 30 MG/ML Syringe IV (05:46)
[2021-12-03] MEDS: 0.9% Saline Lock 10 ML Syringe IV ×3 (05:47→14:50)
[2021-12-03 06:50] LABS: Bedside Glucose 197 mg/dL (70-110)
[2021-12-03] MEDS: Metoprolol Tartrate 25 MG Tablet 12.5 MG PO ×2 (08:16→23:25)
[2021-12-03] MEDS: amLODIPine 10 MG Tablet PO (08:18)
[2021-12-03] MEDS: Senna/Docusate Sodium 1 Tablet 2 TABLET PO ×2 (08:19→21:04)
[2021-12-03] MEDS: Lisinopril 5 MG Tablet PO (08:19)
[2021-12-03] MEDS: Ensure Surgery 237 ML LIQUID PO ×3 (09:05→18:00)
[2021-12-03] MEDS: LORazepam 1 MG Tablet 2 MG PO (09:13)
--- NOTE | 2021-12-03 10:30 | PCM.PN.ID ---
Physical Exam Narrative Feeling much better, mild soreness, no fever Const alert and no apparent distress General Appearance: cooperative Resp normal air movement and clear to auscultation bilaterally Cardio regular rate and regular rhythm GI soft to palpation, non-tender and non-distended Skin no rashes or lesions noted ID ID: Route of nutrition/ use of supplements: [] Nutritional Intake: [] IV Site: [] Seay Catheter: [] Assessment & Plan Assessment/Plan (1) Postoperative fever: PLAN: Developed fever and confusion s/p 12/[address] Meyer and Dr. Cook for posterior fusion of L5-S1, lateral laminectomy L5-S1 on the left and right, anterior lumbar fusion L5-S1, application of anterior spine plate L5-S1, insertion of cage L5-S1 and use of allograft and autograft. No further fever, bcx pending. On zosyn. If fever recurs, would change to vanc/cefepime for DISABILITY REPRESENTATIVE penetration and nosocomial coverage. Fever may be medication related. Now much improved, confusion much better. Can stop zosyn later today or tomorrow if continues to improve and cxs are neg. Will follow
--- NOTE | 2021-12-03 10:50 | PCM.PN.ORT ---
Subjective Subjective Postop day #2. Patient is up with the therapist and ambulating with a walker though very slowly. He relates that his right leg pain is completely gone. The left leg still hurts not as bad as it was prior to surgery probably from residual swelling of the nerve root. He states that the back hurts more than his abdomen. Dressings are dry. Neurologically he is intact. He still has no bowel sounds to speak of. We will keep him on clear liquids for now. Progress is slow but satisfactory under the circumstances. Incidentally the patient is more aware of his surroundings now who I am etc. His encephalopathy is starting to slowly resolve. Objective Data Objective Data Vital Signs: Vital Signs Temp Pulse Resp BP Pulse Ox 98.3 F 88 20 H 146/84 H 91 12/03/21 09:09 12/03/21 09:09 12/03/21 09:09 12/03/21 09:09 12/03/21 09:09 Oxygen Flow Rate (L/min) 2 Oxygen Delivery Method Room Air Weight: 219 lb 5.759 oz Body Mass Index (BMI) 31.9 Intake & Output: Intake and Output for Last 24 Hours 12/01/21 12/02/21 12/03/21 23:59 23:59 23:59 Intake Total 3694.59 / 3694.59 1686.66 / 1686.66 100 / 100 Output Total 1225 / 1225 1225 / 1225 225 / 225 Balance 2469.59 / 2469.59 461.66 / 461.66 -125 / -125 Lab / Micro Data Result Diagrams: 12/02/21 05:15 12/02/21 05:15 Labs: Laboratory Results - last 24 hr 12/02/21 10:45: POC Glucose 150 H 12/02/21 16:47: POC Glucose 193 H 12/02/21 21:34: POC Glucose 188 H 12/03/21 05:45: POC Glucose 197 H Micro: Microbiology 12/01/21 21:45 Urine Catheter - Catheter Legionella Antigen - Final 12/01/21 21:45 Urine Catheter - Catheter Streptococcus pneumoniae Antigen (M - Final 11/23/21 13:41 Swab (Method) Nasal Screen MRSA/MSSA - Final
[2021-12-03 11:46] LABS: Bedside Glucose 300 mg/dL (70-110)
[2021-12-03] MEDS: LORazepam 2 MG/ML Syringe IV ×2 (12:20→21:25)
--- NOTE | 2021-12-03 14:10 | CASEMGMT ---
Social Work Note SW reviewed chart. It was reported that pt drinks 8-9 beers a day but pt's significant other reported only 1-2 beers a couple times of week. SW attempted to meet with pt. Pt is currently alert and orientated x0. SW asked pt what his name is and pt kept repeating Sri. SW asked pt where he was at and pt stated fog. SW asked pt what month it is and pt states 2. SW asked pt for name of the month and pt states 2-3-2. SW will attempt to meet with pt regarding ETOH use and Advanced Directives when pt becomes more alert and orientated. SW to continue to follow. 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
--- NOTE | 2021-12-03 14:49 | PCM.PN.HOSP ---
Subjective Subjective Still very confused, he does not know where he is or what year it is, when asked where he is at he said [place] and when asked what year it was he said [id number] Objective Data Objective Data Vital Signs: Vital Signs Temp Pulse Resp BP Pulse Ox 98.0 F 88 20 H 156/95 H 94 12/03/21 12:45 12/03/21 12:45 12/03/21 12:45 12/03/21 12:45 12/03/21 12:45 Oxygen Flow Rate (L/min) 2 Oxygen Delivery Method Room Air Weight: 219 lb 5.759 oz Body Mass Index (BMI) 31.9 Intake & Output: Intake and Output for Last 24 Hours 12/02/21 12/03/21 12/04/21 03:59 03:59 03:59 Intake Total 4234.59 / 4234.59 1196.66 / 1196.66 50 / 50 Output Total 1225 / 1225 1225 / 1225 225 / 225 Balance 3009.59 / 3009.59 -28.34 / -28.34 -175 / -175 Lab / Micro Data Result Diagrams: 12/02/21 05:15 12/02/21 05:15 Labs: Laboratory Results - last 24 hr 12/02/21 16:47: POC Glucose 193 H 12/02/21 21:34: POC Glucose 188 H 12/03/21 05:45: POC Glucose 197 H 12/03/21 11:24: POC Glucose 300 H Micro: Microbiology 12/01/21 21:45 Urine Catheter - Catheter Urine Culture - Preliminary Culture exhibits no growth. 12/01/21 21:45 Urine Catheter - Catheter Legionella Antigen - Final 12/01/21 21:45 Urine Catheter - Catheter Streptococcus pneumoniae Antigen (M - Final 11/23/21 13:41 Swab (Method) Nasal Screen MRSA/MSSA - Final Physical Exam Narrative Const alert, disoriented and no apparent distress General Appearance: cooperative HEENT normocephalic and moist oral mucous membranes Eyes PERRL, EOMs intact bilaterally and conjunctivae normal Neck supple and no JVD Resp normal respiratory effort, no retractions, no use of accessory muscles and clear to auscultation bilaterally Auscultation: Negative for crackles, rales, rhonchi or wheezes Cardio regular rhythm, S1 normal heart sound, S2 normal heart sound and no murmurs Rate: tachycardic GI soft to palpation, non-tender and non-distended; Negative for hepatosplenomegaly Extremity no clubbing, cyanosis or edema Skin no rashes or lesions noted Skin Narrative: Incision C/D/I Neuro no focal motor deficits and no sensory deficits noted Psych Mood & Affect: flat affect Assessment & Plan Assessment/Plan (1) DDD (degenerative disc disease), lumbar: PLAN: 1. Spondylolisthesis L5-S1 with instability status post posterior fusion on 12/01/2021 with postoperative confusion, and fevers with metabolic encephalopathy ?Currently on MedSurg 3, he still confused and apparently he does have a significant alcohol history we will start him on thiamine and folic acid if he does not have resolution of his confusion in another 24 to 48 hours may need to proceed with an MRI of his brain ?Continue with broad-spectrum antibiotics and cultures are pending, urine cultures are negative but blood cultures are still pending ?Pain management per primary ?Continue with Lyrica 2. Coronary artery disease status post CABG/HTN/CAD ?Echo from 2019 with an EF of 55% and RVSP of 26 mmHg ?Can continue with his home blood pressure medications ?Continue with Ativan 3. DM2 ?Hold home on Metformin and place him on sliding scale insulin ?Accu-Cheks AC dust ?We will adjust as necessary DVT: SCDs Charges/Coding Visit Charges Inpatient E&M: 58813 Subs Hosp L2
[2021-12-03] MEDS: Folic Acid 1 MG Tablet PO (18:05)
[2021-12-03 18:11] LABS: Bedside Glucose 228 mg/dL (70-110)
[2021-12-03] MEDS: Simvastatin 10 MG Tablet PO (21:04)
[2021-12-03] MEDS: Montelukast 10 MG Tablet PO (21:04)
[2021-12-03 21:16] LABS: Bedside Glucose 197 mg/dL (70-110)
[2021-12-03] MEDS: Ondansetron 4 MG/2 ML Vial IV (21:24)
[2021-12-04] VITALS (10 sets, daily range): BP systolic 140–171; BP diastolic 73–86; PULSE 95–114; RESP 16–20; TEMP 36.9–37.3; O2SAT 92–97
[2021-12-04 03:55] LABS: Bedside Glucose 219 mg/dL (70-110)
--- NOTE | 2021-12-04 04:22 | RAD_ITS ---
STUDY: X-RAY - ABDOMEN/PELVIS REASON FOR EXAM: Male, 61 years old. intractable vomiting TECHNIQUE: AP supine and upright views of the abdomen and pelvis. COMPARISON: None. FINDINGS: There is ill-defined groundglass opacity in left lung base may represent early pneumonia in the left lower lobe. There is an unremarkable bowel gas pattern. There is no demonstrated free abdominal air. The visualized liver, spleen and kidneys are grossly normal in size and morphology. Normal soft tissue structures. Normal visualized osseous structures. RAD/Abd Decub and/or Erect(Portabl IMPRESSION: Possible left lower lobe pneumonia. Electronically Signed: Adi Deluna MD at 5:16 EST ,
[2021-12-04] MEDS: proCHLORPERazine 10 MG/2 ML Vial 5 MG IV (05:01)
[2021-12-04] MEDS: 0.9% Normal Saline 1,000 ML 125 ML IV ×3 (05:03→22:23)
[2021-12-04 06:26] LABS: Absolute Lymphocyte Count 0.73 X10^3/uL (0.83-4.51); Absolute Neutrophil Count 9.9 X10^3/uL (2.0-7.7); Basophil# 0.03 X10^3/uL; Basophil% 0.2 % (0-1); Eosinophil# 0.01 X10^3/uL; Eosinophils% 0.1 % (0-5); Hematocrit 34.3 % (40-54); Hemoglobin 10.7 g/dL (13.0-16.5); Lymphocyte # 0.73 X10^3/ul (0.83-4.51); Lymphocyte % 5.9 % (19-41); Mean Corp Hgb Conc 31.2 g/dL (32-36); Mean Corpuscular Hgb 33.1 pg (27.0-32.0); Mean Corpuscular Volume 106.2 fL (80-94); Mean Platelet Vol. 10.5 fl (6.2-12.0); Monocyte% 10.6 % (0-10); NRBC Flagged by Analyzer 0 % (0-5); Neutrophil # 9.91 X10^3/uL (2.7-7.7); Neutrophil % 80.7 % (47-70); Platelet Count 226 K/mm3 (150-450); RBC Distribution Width CV 13.7 % (11.6-14.6); RBC Distribution Width SD 53.8 fl (35.1-43.9); Red Blood Count 3.23 M/mm3 (4.6-6.2); White Blood Count 12.3 K/mm3 (4.4-11.0)
[2021-12-04] MEDS: Insulin Lispro 100 UNIT/ML INSULN.PEN SC ×3 (06:26→17:48)
[2021-12-04 06:35] LABS: Bedside Glucose 287 mg/dL (70-110)
[2021-12-04 06:48] LABS: Anion Gap 6 (5-15); BUN 24 mg/dL (7-18); BUN/Creat Ratio 24.9 RATIO (10-20); Calcium,Total 8.9 mg/dL (8.5-10.1); Chloride 110 mmol/L (98-107); Creatinine, Serum 0.96 mg/dL (0.70-1.30); EST Glomerular Filtration Rate 84 mL/min (>60); Est Glom Filt Rate - Afr Amer 102 mL/min (>60); Estimated Creatinine Clearance 84.49 ml/min; Glucose 267 mg/dL (74-106); Sodium Level 144 mmol/L (136-145)
--- NOTE | 2021-12-04 07:19 | MRI_ITS ---
STUDY: MRI BRAIN WITHOUT CONTRAST REASON FOR EXAM: Male, 61 years old. Encephalopathy/Worsening confusion. Lumbar fusion Sx 12/01/21 TECHNIQUE: Standardized multiplanar fat and water weighted pulse sequences were obtained. COMPARISON: CT 12/01/2021, 10/03/2013 FINDINGS: There is mild cerebral atrophy with widening of the extra-axial spaces and ventricular dilatation. There are a limited number of small white matter hyperintensities, distributed throughout the deep white matter tracts of the cerebral hemispheres, consistent with mild chronic white matter ischemic changes. There is no evidence for recent intracranial ischemia or other cause of cytotoxic edema on diffusion weighted imaging (DWI). Normal T2* images of the brain without demonstrated susceptibility artifact. There is no demonstrated hemosiderin stain. Normal bilateral basal ganglia. Normal thalami. There is no extra-axial fluid accumulation. Normal flow voids within the major intracranial circulation suggesting patency by spin echo criteria. Normal sella turcica, pituitary gland, infundibular stalk, optic chiasm and hypothalamus. Normal tectal plate and pineal gland. Normal midbrain, kierra and medulla. Normal cerebellum. Normal basal cisterns. There is moderate chronic otomastoiditis of the bilateral temporal bones. Normal bilateral internal auditory canals. There are bilateral ocular lens implants with otherwise normal intraorbital contents. Normal visualized paranasal sinuses. Normal calvarium and skull base. Normal visualized soft tissue structures. Normal visualized upper cervical spine. MRI/Brain without Contrast IMPRESSION: Involutional changes of the brain, as described above. No acute infarct. Electronically Signed: Jag Tate MD at 13:06 EST ,
--- NOTE | 2021-12-04 09:28 | PN.HOSP_ITS ---
Subjective Subjective Still confused, I think this is surpassing postoperative delirium therefore we will proceed with an MRI today and if that is normal potentially an EEG. Cultures so far negative Objective Data Objective Data Vital Signs: Vital Signs Temp Pulse Resp BP Pulse Ox 98.9 F 106 H 16 140/73 H 92 12/04/21 09:02 12/04/21 09:02 12/04/21 09:02 12/04/21 09:02 12/04/21 09:02 Oxygen Flow Rate (L/min) 2 Oxygen Delivery Method Room Air Weight: 214 lb 8.156 oz Body Mass Index (BMI) 31.9 Intake & Output: Intake and Output for Last 24 Hours 12/03/21 12/04/21 12/05/21 03:59 03:59 03:59 Intake Total 1196.66 / 1196.66 700 / 700 150 / 150 Output Total 1225 / 1225 850 / 850 200 / 200 Balance -28.34 / -28.34 -150 / -150 -50 / -50 Lab / Micro Data Result Diagrams: 12/04/21 05:40 12/04/21 05:40 Labs: Laboratory Results - last 24 hr 12/03/21 11:24: POC Glucose 300 H 12/03/21 17:58: POC Glucose 228 H 12/03/21 21:10: POC Glucose 197 H 12/04/21 03:46: POC Glucose 219 H 12/04/21 05:40: WBC 12.3 H, RBC 3.23 L, Hgb 10.7 L, Hct 34.3 L, MCV 106.2 H, MCH 33.1 H, MCHC 31.2 L, RDW Std Deviation 53.8 H, RDW Coeff of Mayi 13.7, Plt Count 226, MPV 10.5, Immature Gran % (Auto) 2.500 H, Neut % (Auto) 80.7 H, Lymph % (Auto) 5.9 L, [place] % (Auto) 10.6 H, Eos % (Auto) 0.1, Baso % (Auto) 0.2, Absolute Neuts (auto) 9.9 H, Absolute Lymphs (auto) 0.73 L, Nucleated RBC % 0 12/04/21 05:40: Sodium 144, Potassium 4.0, Chloride 110 H, Carbon Dioxide 28.0, Anion Gap 6, BUN 24 H, Creatinine 0.96, Estim Creat Clear Calc 84.49, Est GFR (MDRD) Af Amer 102, Est GFR (MDRD) Non-Af 84, BUN/Creatinine Ratio 24.9 H, Glucose 267 H, Calcium 8.9 12/04/21 06:25: POC Glucose 287 H Micro: Microbiology 12/01/21 21:25 Blood Culture (Wb) - Right Wrist Blood Culture - Preliminary No growth in 48 hours. 12/01/21 21:16 Blood Culture (Wb) - Anticubital Right Blood Culture - Pre liminary No growth in 48 hours. 12/01/21 21:45 Urine Catheter - Catheter Urine Culture - Final Culture exhibits no growth. 12/01/21 21:45 Urine Catheter - Catheter Legionella Antigen - Final 12/01/21 21:45 Urine Catheter - Catheter Streptococcus pneumoniae Antigen (M - Final 11/23/21 13:41 Swab (Method) Nasal Screen MRSA/MSSA - Final Radiography Diagnostic Testing: Radiology Impression Abdomen X-Ray 12/04/21 04:22 IMPRESSION: Possible left lower lobe pneumonia. Electronically Signed: Adi Deluna MD at 5:16 EST Reading Location ID and State: [facility] / [place] Tel , Service support , Physical Exam Narrative Const alert, disoriented and no apparent distress General Appearance: cooperative HEENT normocephalic and moist oral mucous membranes Eyes PERRL, EOMs intact bilaterally and conjunctivae normal Neck supple and no JVD Resp normal respiratory effort, no retractions, no use of accessory muscles and clear to auscultation bilaterally Auscultation: Negative for crackles, rales, rhonchi or wheezes Cardio regular rhythm, S1 normal heart sound, S2 normal heart sound and no murmurs Rate: tachycardic GI soft to palpation, non-tender and non-distended; Negative for hepatosplenomegaly Extremity no clubbing, cyanosis or edema Skin no rashes or lesions noted Skin Narrative: Incision C/D/I Neuro no focal motor deficits and no sensory deficits noted Psych Mood & Affect: flat affect Assessment & Plan Assessment/Plan (1) DDD (degenerative disc disease), lumbar: PLAN: 1. Spondylolisthesis L5-S1 with instability status post posterior fusion on 12/01/2021 with postoperative confusion, and fevers with metabolic encephalopathy ?Currently on MedSurg 3, he still confused and apparently he does have a significant alcohol history we will start him on thiamine and folic acid ?We will obtain an MRI today if normal will proceed with EEG ?Blood and urine cultures are negative, KUB demonstrates a possible left lower lobe pneumonia, can continue with Zosyn and obtain a chest x-ray ?Pain management per primary ?Continue with Lyrica 2. Coronary artery disease status post CABG/HTN/CAD ?Echo from 2019 with an EF of 55% and RVSP of 26 mmHg ?Can continue with his home blood pressure medications ?Continue with Ativan 3. DM2 ?Hold home on Metformin and place him on sliding scale insulin ?Accu-Cheks AC dust ?We will adjust as necessary DVT: SCDs Charges/Coding Visit Charges Inpatient E&M: 36981 Subs Hosp L2
[2021-12-04] MEDS: amLODIPine 10 MG Tablet PO (09:29)
[2021-12-04] MEDS: Metoprolol Tartrate 25 MG Tablet 12.5 MG PO ×2 (09:29→23:33)
[2021-12-04] MEDS: Senna/Docusate Sodium 1 Tablet 2 TABLET PO ×2 (09:29→23:32)
[2021-12-04] MEDS: Folic Acid 1 MG Tablet PO ×2 (09:30→17:48)
[2021-12-04] MEDS: Thiamine Hydrochloride 100 MG Tablet PO (09:30)
[2021-12-04] MEDS: Lisinopril 5 MG Tablet PO (09:31)
[2021-12-04] MEDS: LORazepam 2 MG/ML Syringe IV (11:46)
[2021-12-04 12:10] LABS: Bedside Glucose 303 mg/dL (70-110)
--- NOTE | 2021-12-04 12:29 | PN.ORTHO_ITS ---
Subjective Subjective I came to see patient on rounds however he is down at MRI scan getting MRI scan of his brain because of his obvious encephalopathy. Certain he is not ready to be discharged just yet I will see him again tomorrow morning. This is Dr. Meyer dictating. Objective Data Objective Data Vital Signs: Vital Signs Temp Pulse Resp BP Pulse Ox 98.9 F 106 H 16 140/73 H 94 12/04/21 09:02 12/04/21 09:29 12/04/21 09:02 12/04/21 09:02 12/04/21 11:31 Oxygen Flow Rate (L/min) 2 Oxygen Delivery Method Room Air Weight: 214 lb 8.156 oz Body Mass Index (BMI) 31.9 Intake & Output: Intake and Output for Last 24 Hours 12/02/21 12/03/21 12/04/21 23:59 23:59 23:59 Intake Total 1686.66 / 1686.66 550 / 700 1266.67 / 1266.67 Output Total 1225 / 1225 675 / 850 375 / 375 Balance 461.66 / 461.66 -125 / -150 891.67 / 891.67 Lab / Micro Data Result Diagrams: 12/04/21 05:40 12/04/21 05:40 Labs: Laboratory Results - last 24 hr 12/03/21 17:58: POC Glucose 228 H 12/03/21 21:10: POC Glucose 197 H 12/04/21 03:46: POC Glucose 219 H 12/04/21 05:40: WBC 12.3 H, RBC 3.23 L, Hgb 10.7 L, Hct 34.3 L, MCV 106.2 H, MCH 33.1 H, MCHC 31.2 L, RDW Std Deviation 53.8 H, RDW Coeff of Mayi 13.7, Plt Count 226, MPV 10.5, Immature Gran % (Auto) 2.500 H, Neut % (Auto) 80.7 H, Lymph % (Auto) 5.9 L, [place] % (Auto) 10.6 H, Eos % (Auto) 0.1, Baso % (Auto) 0.2, Absolute Neuts (auto) 9.9 H, Absolute Lymphs (auto) 0.73 L, Nucleated RBC % 0 12/04/21 05:40: Sodium 144, Potassium 4.0, Chloride 110 H, Carbon Dioxide 28.0, Anion Gap 6, BUN 24 H, Creatinine 0.96, Estim Creat Clear Calc 84.49, Est GFR (MDRD) Af Amer 102, Est GFR (MDRD) Non-Af 84, BUN/Creatinine Ratio 24.9 H, Gl ucose 267 H, Calcium 8.9 12/04/21 06:25: POC Glucose 287 H 12/04/21 11:56: POC Glucose 303 H Micro: Microbiology 12/01/21 21:25 Blood Culture (Wb) - Right Wrist Blood Culture - Preliminary No growth in 48 hours. 12/01/21 21:16 Blood Culture (Wb) - Anticubital Right Blood Culture - Preliminary No growth in 48 hours. 12/01/21 21:45 Urine Catheter - Catheter Urine Culture - Final Culture exhibits no growth. 12/01/21 21:45 Urine Catheter - Catheter Legionella Antigen - Final 12/01/21 21:45 Urine Catheter - Catheter Streptococcus pneumoniae Antigen (M - Final 11/23/21 13:41 Swab (Method) Nasal Screen MRSA/MSSA - Final Radiography Diagnostic Testing: Radiology Impression Abdomen X-Ray 12/04/21 04:22 IMPRESSION: Possible left lower lobe pneumonia. Electronically Signed: Adi Deluna MD at 5:16 EST ,
--- NOTE | 2021-12-04 12:55 | RAD_ITS ---
STUDY: X-RAY CHEST REASON FOR EXAM: Male, 61 years old. Left lower lobe infiltrate on KUB TECHNIQUE: PA and lateral views of the chest. COMPARISON: 12/01/2021 FINDINGS: Status post median sternotomy. The lungs are clear and expanded. Slightly elevated right hemidiaphragm. There is moderate cardiac enlargement. Normal mediastinum and kaci. Normal visualized pulmonary arteries. Normal visualized aortic arch and descending thoracic aorta. Normal visualized thoracic spine. Normal visualized ribs, clavicles, and shoulders. There is no demonstrated abnormality of the visualized soft tissue structures of the upper abdomen. RAD/Chest PA and Lateral IMPRESSION: No active disease. Electronically Signed: Jag Tate MD at 13:10 EST ,
[2021-12-04 17:56] LABS: Bedside Glucose 226 mg/dL (70-110)
[2021-12-04] MEDS: 0.9% Saline Lock 10 ML Syringe IV (20:07)
[2021-12-04] MEDS: Ondansetron 4 MG/2 ML Vial IV (20:07)
[2021-12-04] MEDS: Montelukast 10 MG Tablet PO (23:37)
[2021-12-04] MEDS: Simvastatin 10 MG Tablet PO (23:37)
[2021-12-05] VITALS (7 sets, daily range): BP systolic 137–161; BP diastolic 68–84; PULSE 80–92; RESP 18–24; TEMP 36.6–37.6; O2SAT 92–99
[2021-12-05] MEDS: Insulin Lispro 100 UNIT/ML INSULN.PEN SC ×5 (01:32→21:27)
[2021-12-05 01:40] LABS: Bedside Glucose 224 mg/dL (70-110)
[2021-12-05] MEDS: Ketorolac 30 MG/ML Syringe IV ×2 (04:52→14:09)
[2021-12-05] MEDS: Menthol/Lanolin/Calamine/Znox 113 GM Tube 1 APPLIC TOPICAL ×3 (04:59→21:15)
[2021-12-05 05:01] LABS: Bedside Glucose 223 mg/dL (70-110)
[2021-12-05] MEDS: 0.9% Normal Saline 1,000 ML 125 ML IV (05:39)
[2021-12-05 06:16] LABS: Absolute Lymphocyte Count 1.19 X10^3/uL (0.83-4.51); Absolute Neutrophil Count 8.5 X10^3/uL (2.0-7.7); Basophil# 0.04 X10^3/uL; Basophil% 0.3 % (0-1); Eosinophil# 0.11 X10^3/uL; Eosinophils% 0.9 % (0-5); Hematocrit 31.9 % (40-54); Hemoglobin 10.1 g/dL (13.0-16.5); Lymphocyte # 1.19 X10^3/ul (0.83-4.51); Lymphocyte % 10.2 % (19-41); Mean Corp Hgb Conc 31.7 g/dL (32-36); Mean Corpuscular Hgb 33.6 pg (27.0-32.0); Mean Platelet Vol. 10.5 fl (6.2-12.0); Monocyte# 1.41 X10^3/uL; Monocyte% 12.1 % (0-10); NRBC Flagged by Analyzer 0 % (0-5); Neutrophil # 8.54 X10^3/uL (2.7-7.7); Neutrophil % 73.5 % (47-70); Platelet Count 243 K/mm3 (150-450); RBC Distribution Width CV 13.6 % (11.6-14.6); RBC Distribution Width SD 52.1 fl (35.1-43.9); Red Blood Count 3.01 M/mm3 (4.6-6.2); White Blood Count 11.6 K/mm3 (4.4-11.0)
[2021-12-05 06:57] LABS: ALB/GLOB Ratio 0.5 RATIO (0.9-2.4); AST(SGOT) 31 U/L (15-37); Alanine Aminotransfer ALT/SGPT 31 U/L (16-61); Albumin, Serum 2.1 g/dL (3.2-5.0); Alkaline Phosphatase 77 U/L (45-117); Anion Gap 6 (5-15); BUN 18 mg/dL (7-18); BUN/Creat Ratio 25.6 RATIO (10-20); Calcium,Total 8.5 mg/dL (8.5-10.1); Chloride 112 mmol/L (98-107); EST Glomerular Filtration Rate 121 mL/min (>60); Est Glom Filt Rate - Afr Amer 147 mL/min (>60); Estimated Creatinine Clearance 115.87 ml/min; Globulin 4.3 g/dL (2.2-4.2); Glucose 200 mg/dL (74-106); Potassium 3.7 mmol/L (3.5-5.1); Protein, Total 6.4 g/dL (6.4-8.2); Sodium Level 144 mmol/L (136-145)
[2021-12-05] MEDS: Metoprolol Tartrate 25 MG Tablet 12.5 MG PO ×2 (09:02→21:15)
[2021-12-05] MEDS: Lisinopril 5 MG Tablet PO (09:02)
[2021-12-05] MEDS: Folic Acid 1 MG Tablet PO ×2 (09:02→16:38)
[2021-12-05] MEDS: amLODIPine 10 MG Tablet PO (09:02)
[2021-12-05] MEDS: Thiamine Hydrochloride 100 MG Tablet PO (09:02)
--- NOTE | 2021-12-05 09:18 | PN.HOSP_ITS ---
Subjective Subjective Still alert but also very confused has no idea where he is, and the year is 1970 Objective Data Objective Data Vital Signs: Vital Signs Temp Pulse Resp BP Pulse Ox 99.0 F 86 24 H 161/83 H 92 12/05/21 08:49 12/05/21 09:02 12/05/21 08:49 12/05/21 08:49 12/05/21 08:49 Oxygen Flow Rate (L/min) 3 Oxygen Delivery Method Room Air Weight: 214 lb 4.629 oz Body Mass Index (BMI) 31.9 Intake & Output: Intake and Output for Last 24 Hours 12/04/21 12/05/21 12/06/21 03:59 03:59 03:59 Intake Total 700 / 700 2266.67 / 2266.67 958.33 / 958.33 Output Total 850 / 850 1950 / 1950 350 / 350 Balance -150 / -150 316.67 / 316.67 608.33 / 608.33 Lab / Micro Data Result Diagrams: 12/05/21 05:15 12/05/21 05:15 Labs: Laboratory Results - last 24 hr 12/04/21 11:56: POC Glucose 303 H 12/04/21 17:46: POC Glucose 226 H 12/05/21 01:30: POC Glucose 224 H 12/05/21 04:53: POC Glucose 223 H 12/05/21 05:15: WBC 11.6 H, RBC 3.01 L, Hgb 10.1 L, Hct 31.9 L, MCV 106.0 H, MCH 33.6 H, MCHC 31.7 L, RDW Std Deviation 52.1 H, RDW Coeff of Mayi 13.6, Plt Count 243, MPV 10.5, Immature Gran % (Auto) 3.000 H, Neut % (Auto) 73.5 H, Lymph % (Auto) 10.2 L, [place] % (Auto) 12.1 H, Eos % (Auto) 0.9, Baso % (Auto) 0.3, Absolute Neuts (auto) 8.5 H, Absolute Lymphs (auto) 1.19, Nucleated RBC % 0 12/05/21 05:15: Sodium 144, Potassium 3.7, Chloride 112 H, Carbon Dioxide 26.0, Anion Gap 6, BUN 18, Creatinine 0.70, Estim Creat Clear Calc 115.87, Est GFR (MDRD) Af Amer 147, Est GFR (MDRD) Non-Af 121, BUN/Creatinine Ratio 25.6 H, Glucose 200 H, Calcium 8.5, Total Bilirubin 0.50, AST 31, ALT 31, Alkaline Phosphatase 77, Total Protein 6.4, Albumin 2.1 L, Globulin 4.3 H, Albumin/Globulin Ratio 0.5 L Micro: Microbiology 12/05/21 08:45 Stool Stool Occult Blood (ARNOLD) - Final 12/01/21 21:25 Blood Culture (Wb) - Right Wrist Blood Culture - Preliminary No growth in 48 hours. 12/01/21 21:16 Blood Culture (Wb) - Anticubital Right Blood Culture - Preliminary No growth in 48 hours. 12/01/21 21:45 Urine Catheter - Catheter Urine Culture - Final Culture exhibits no growth. 12/01/21 21:45 Urine Catheter - Catheter Legionella Antigen - Final 12/01/21 21:45 Urine Catheter - Catheter Streptococcus pneumoniae Antigen (M - Final 11/23/21 13:41 Swab (Method) Nasal Screen MRSA/MSSA - Final Radiography Diagnostic Testing: Radiology Impression Brain MRI 12/04/21 07:19 IMPRESSION: Involutional changes of the brain, as described above. No acute infarct. Electronically Signed: Jag Tate MD at 13:06 EST , Chest X-Ray 12/04/21 12:55 IMPRESSION: No active disease. Electronically Signed: Jag Tate MD at 13:10 EST , Physical Exam Narrative Const alert, disoriented and no apparent distress General Appearance: cooperative HEENT normocephalic and moist oral mucous membranes Eyes PERRL, EOMs intact bilaterally and conjunctivae normal Neck supple and no JVD Resp normal respiratory effort, no retractions, no use of accessory muscles and clear to auscultation bilaterally Auscultation: Negative for crackles, rales, rhonchi or wheezes Cardio regular rhythm, S1 normal heart sound, S2 normal heart sound and no murmurs Rate: tachycardic GI soft to palpation, non-tender and non-distended; Negative for hepatosplenomegaly Extremity no clubbing, cyanosis or edema Skin no rashes or lesions noted Skin Narrative: Incision C/D/I Neuro no focal motor deficits and no sensory deficits noted Psych Mood & Affect: flat affect Assessment & Plan Assessment/Plan (1) DDD (degenerative disc disease), lumbar: PLAN: 1. Spondylolisthesis L5-S1 with instability status post posterior fusion on 12/01/2021 with postoperative confusion, and fevers with metabolic encephalopathy ?Currently on MedSurg 3, he still confused and apparently he does have a significant alcohol history we will start him on thiamine and folic acid ?MRI was unremarkable and was attempted to get an EEG yesterday however the machine was not working so we'll try again today ?Blood and urine cultures are negative, KUB demonstrates a possible left lower lobe pneumonia, can continue with Zosyn. Chest x-ray did not demonstrate a pneumonia will continue with Zosyn for 1 more day and discontinue tomorrow ?Pain management per primary ?Continue with Lyrica 2. Coronary artery disease status post CABG/HTN/CAD ?Echo from 2020 with an EF of 55% and RVSP of 26 mmHg ?Can continue with his home blood pressure medications ?Continue with Ativan 3. DM2 ?Hold home on Metformin and place him on sliding scale insulin ?Accu-Cheks AC dust ?We will adjust as necessary DVT: SCDs Charges/Coding Visit Charges Inpatient E&M: 17192 Subs Hosp L2
[2021-12-05] MEDS: Ensure Surgery 237 ML LIQUID PO (11:50)
[2021-12-05 11:56] LABS: Bedside Glucose 226 mg/dL (70-110)
--- NOTE | 2021-12-05 13:51 | PN.ORTHO_ITS ---
Subjective Subjective Patient seen on rounds today. He knew who I was and he knew that I was his surgeon. He states that his leg pain is hardly any better than it was. Though I know that the L5 nerve root on the left is completely decompressed. His back still hurts some but a little better than it was. His abdomen does not feel too bad according to the patient. Neurologically he is intact in both lower extremities. I discussed the case with Dr. Cotton. 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 Started on thiamine. In addition will order a neurology consult. Unfortunately her EEG machine is broken down but they are working on it now. I will see the patient again tomorrow. Objective Data Objective Data Vital Signs: Vital Signs Temp Pulse Resp BP Pulse Ox 99.0 F 86 24 H 161/83 H 92 12/05/21 08:49 12/05/21 09:02 12/05/21 08:49 12/05/21 08:49 12/05/21 08:49 Oxygen Flow Rate (L/min) 3 Oxygen Delivery Method Room Air Weight: 214 lb 4.629 oz Body Mass Index (BMI) 31.9 Intake & Output: Intake and Output for Last 24 Hours 12/03/21 12/04/21 12/05/21 23:59 23:59 23:59 Intake Total 550 / 700 2316.67 / 2316.67 / Output Total 675 / 850 1025 / 1025 1625 / 1625 Balance -125 / -150 1291.67 / 1291.67 356.25 / 356.25 Lab / Micro Data Result Diagrams: 12/05/21 05:15 12/05/21 05:15 Labs: Laboratory Results - last 24 hr 12/04/21 17:46: POC Glucose 226 H 12/05/21 01:30: POC Glucose 224 H 12/05/21 04:53: POC Glucose 223 H 12/05/21 05:15: WBC 11.6 H, RBC 3.01 L, Hgb 10.1 L, Hct 31.9 L, MCV 106.0 H, MCH 33.6 H, MCHC 31.7 L, RDW Std Deviation 52.1 H, RDW Coeff of Mayi 13.6, Plt Count 243, MPV 10.5, Immature Gran % (Auto) 3.000 H, Neut % (Auto) 73.5 H, Lymph % (Au to) 10.2 L, [place] % (Auto) 12.1 H, Eos % (Auto) 0.9, Baso % (Auto) 0.3, Absolute Neuts (auto) 8.5 H, Absolute Lymphs (auto) 1.19, Nucleated RBC % 0 12/05/21 05:15: Sodium 144, Potassium 3.7, Chloride 112 H, Carbon Dioxide 26.0, Anion Gap 6, BUN 18, Creatinine 0.70, Estim Creat Clear Calc 115.87, Est GFR (MDRD) Af Amer 147, Est GFR (MDRD) Non-Af 121, BUN/Creatinine Ratio 25.6 H, Glucose 200 H, Calcium 8.5, Total Bilirubin 0.50, AST 31, ALT 31, Alkaline Phosphatase 77, Total Protein 6.4, Albumin 2.1 L, Globulin 4.3 H, Albumin/Globulin Ratio 0.5 L 12/05/21 11:41: POC Glucose 226 H Micro: Microbiology 12/05/21 08:45 Stool Stool Occult Blood (ARNOLD) - Final 12/01/21 21:25 Blood Culture (Wb) - Right Wrist Blood Culture - Preliminary No growth in 48 hours. 12/01/21 21:16 Blood Culture (Wb) - Anticubital Right Blood Culture - Prel iminary No growth in 48 hours. 12/01/21 21:45 Urine Catheter - Catheter Urine Culture - Final Culture exhibits no growth. 12/01/21 21:45 Urine Catheter - Catheter Legionella Antigen - Final 12/01/21 21:45 Urine Catheter - Catheter Streptococcus pneumoniae Antigen (M - Final 11/23/21 13:41 Swab (Method) Nasal Screen MRSA/MSSA - Final
[2021-12-05] MEDS: 0.9% Saline Lock 10 ML Syringe IV (14:08)
[2021-12-05] MEDS: 0.9% Normal Saline 1,000 ML 75 ML IV (15:57)
[2021-12-05] MEDS: Acetaminophen 325 MG Tablet 650 MG PO (16:41)
--- NOTE | 2021-12-05 17:43 | CM.ED ---
SW Note SW spoke to skin peeling machine operator Suzie. Suzie stated that patient continues to be alert and oriented x1. Thus, psychiatric social worker supervisor did not follow up with patient on this date. Ce THOMPSON
[2021-12-05 18:11] LABS: Bedside Glucose 283 mg/dL (70-110)
[2021-12-05] MEDS: Simvastatin 10 MG Tablet PO (21:15)
[2021-12-05] MEDS: Montelukast 10 MG Tablet PO (21:16)
[2021-12-05 21:36] LABS: Bedside Glucose 240 mg/dL (70-110)
[2021-12-05] MEDS: LORazepam 2 MG/ML Syringe IV (22:06)
[2021-12-06] MEDS: 0.9% Normal Saline 1,000 ML 75 ML IV ×2 (01:52→15:53)
[2021-12-06] MEDS: Insulin Lispro 100 UNIT/ML INSULN.PEN SC ×3 (05:50→16:36)
[2021-12-06 06:11] LABS: Bedside Glucose 182 mg/dL (70-110)
--- NOTE | 2021-12-06 08:41 | TELEMED_ITS ---
[facility] has confirmed receipt of a request for visit. This document confirms receipt of the order initiating the consult. To find the results of the consultation, please view the patient's reports for the scanned Telemed Consult.
--- NOTE | 2021-12-06 08:54 | PN.HOSP_ITS ---
Subjective Subjective Feeling better today, seems little bit more alert. He knows he is in [facility] however coming to the response was slow, initially when asked where he was he said that he was fine and ready to go home and then when asked him again where he was, he said that he was doing fine. Initially when asked him what year it was he started to say that it was 1968 and then changed to 2021. I do see this is a significant improvement but still nowhere near normal baseline. He is denying excessive alcohol use however we do have other individual reports that he does use a significant amount of alcohol. In discussion with the neurosurgeon, he states that when they first met he had stated that he drinks about 15 beers a day. The patient is currently denying this however his progress and slow improvement is fairly consistent with an alcohol withdrawal delirium after surgery. Objective Data Objective Data Vital Signs: Vital Signs Temp Pulse Resp BP Pulse Ox 97.9 F 80 18 137/68 H 95 12/05/21 21:11 12/05/21 21:15 12/05/21 21:11 12/05/21 21:15 12/05/21 21:11 Oxygen Flow Rate (L/min) 3 Oxygen Delivery Method Room Air Weight: 218 lb 4.122 oz Body Mass Index (BMI) 31.9 Intake & Output: Intake and Output for Last 24 Hours 12/05/21 12/06/21 12/07/21 03:59 03:59 03:59 Intake Total 2266.67 / 2266.67 3833.75 / 3833.75 200 / 200 Output Total 1950 / 1950 1125 / 1125 450 / 450 Balance 316.67 / 316.67 2708.75 / 2708.75 -250 / -250 Lab / Micro Data Result Diagrams: 12/05/21 05:15 12/05/21 05:15 Labs: Laboratory Results - last 24 hr 12/05/21 11:41: POC Glucose 226 H 12/05/21 17:55: POC Glucose 283 H 12/05/21 21:26: POC Glucose 240 H 12/06/21 05:49: POC Glucose 182 H Micro: Microbiology 12/05/21 08:45 Stool Stool Occult Blood (ARNOLD) - Final 12/01/21 21:25 Blood Culture (Wb) - Right Wrist Blood Culture - Preliminary No growth in 48 hours. 12/01/21 21:16 Blood Culture (Wb) - Anticubital Right Blood Culture - Prelim inary No growth in 48 hours. 12/01/21 21:45 Urine Catheter - Catheter Urine Culture - Final Culture exhibits no growth. 12/01/21 21:45 Urine Catheter - Catheter Legionella Antigen - Final 12/01/21 21:45 Urine Catheter - Catheter Streptococcus pneumoniae Antigen (M - Final 11/23/21 13:41 Swab (Method) Nasal Screen MRSA/MSSA - Final Physical Exam Narrative Const alert, oriented x3 and no apparent distress General Appearance: cooperative HEENT normocephalic and moist oral mucous membranes Eyes PERRL, EOMs intact bilaterally and conjunctivae normal Neck supple and no JVD Resp normal respiratory effort, no retractions, no use of accessory muscles and clear to auscultation bilaterally Auscultation: Negative for crackles, rales, rhonchi or wheezes Cardio regular rhythm, S1 normal heart sound, S2 normal heart sound and no murmurs Rate: tachycardic GI soft to palpation, non-tender and non-distended; Negative for hepatosplenomegaly Extremity no clubbing, cyanosis or edema Skin no rashes or lesions noted Skin Narrative: Incision C/D/I Neuro no focal motor deficits and no sensory deficits noted Psych Mood & Affect: flat affect Assessment & Plan Assessment/Plan (1) DDD (degenerative disc disease), lumbar: PLAN: 1. Spondylolisthesis L5-S1 with instability status post posterior fusion on 12/01/2021 with postoperative confusion, and fevers with metabolic encephalopathy ?Currently on MedSurg 3, he still confused and apparently he does have a signifi cant alcohol history we will start him on thiamine and folic acid ?MRI was unremarkable, unfortunately EEG machine is not working so we will just proceed with an SOC neurology consult for encephalopathy today ?Blood and urine cultures are negative, KUB demonstrates a possible left lower lobe pneumonia, can continue with Zosyn. Chest x-ray did not demonstrate a pneumonia, will discontinue Zosyn ?Pain management per primary ?Continue with Lyrica 2. Coronary artery disease status post CABG/HTN/CAD ?Echo from 2020 with an EF of 55% and RVSP of 26 mmHg ?Can continue with his home blood pressure medications ?Continue with Ativan 3. DM2 ?Hold home on Metformin and place him on sliding scale insulin ?Accu-Cheks AC dust ?We will adjust as necessary DVT: SCDs Charges/Coding Visit Charges Inpatient E&M: 40772 Subs Hosp L2
[2021-12-06 09:14] VITALS: BP 153/79; PULSE 79; RESP 18; TEMP 36.8; O2SAT 94
[2021-12-06 09:21] VITALS: PULSE 79
[2021-12-06] MEDS: Metoprolol Tartrate 25 MG Tablet 12.5 MG PO ×2 (09:21→21:15)
[2021-12-06] MEDS: Acetaminophen 325 MG Tablet 650 MG PO ×2 (09:22→16:36)
[2021-12-06] MEDS: Lisinopril 5 MG Tablet PO (09:22)
[2021-12-06] MEDS: Menthol/Lanolin/Calamine/Znox 113 GM Tube 1 APPLIC TOPICAL ×2 (09:22→21:45)
[2021-12-06] MEDS: Folic Acid 1 MG Tablet PO ×2 (09:22→16:36)
[2021-12-06] MEDS: Thiamine Hydrochloride 100 MG Tablet PO (09:22)
[2021-12-06] MEDS: amLODIPine 10 MG Tablet PO (09:22)
[2021-12-06 11:41] LABS: Bedside Glucose 281 mg/dL (70-110)
--- NOTE | 2021-12-06 13:43 | NURSING ---
Neruology video conference with pt
[2021-12-06] MEDS: 0.9% Saline Lock 10 ML Syringe IV ×2 (13:44→21:23)
[2021-12-06] MEDS: Ketorolac 30 MG/ML Syringe IV ×2 (13:44→21:21)
[2021-12-06 14:10] VITALS: BP 155/91; PULSE 78; RESP 18; TEMP 37.1; O2SAT 98
[2021-12-06 16:46] LABS: Bedside Glucose 217 mg/dL (70-110)
[2021-12-06 20:00] VITALS: BP 156/86; PULSE 78; RESP 18; TEMP 37.1; O2SAT 98
[2021-12-06 21:00] VITALS: BP 152/84; PULSE 75; RESP 18; TEMP 37; O2SAT 95
[2021-12-06 21:15] VITALS: BP 159/85; PULSE 82
[2021-12-06] MEDS: Senna/Docusate Sodium 1 Tablet 2 TABLET PO (21:15)
[2021-12-06] MEDS: Simvastatin 10 MG Tablet PO (21:17)
[2021-12-06] MEDS: Montelukast 10 MG Tablet PO (21:17)
[2021-12-06] MEDS: LORazepam 1 MG Tablet 2 MG PO (21:21)
[2021-12-07] MEDS: Insulin Lispro 100 UNIT/ML INSULN.PEN SC ×3 (00:31→11:05)
[2021-12-07] MEDS: Glycerin/Hypromellose/PEG400 15 ml Bottle 1 DRP EACH EYE (00:32)
[2021-12-07 00:41] LABS: Bedside Glucose 200 mg/dL (70-110)
[2021-12-07 02:00] VITALS: BP 156/87; PULSE 79; RESP 16; TEMP 36.5; O2SAT 96
[2021-12-07] MEDS: 0.9% Normal Saline 1,000 ML 75 ML IV (05:04)
[2021-12-07 05:16] LABS: Bedside Glucose 175 mg/dL (70-110)
[2021-12-07 06:09] LABS: Hematocrit 30.2 % (40-54); Hemoglobin 9.6 g/dL (13.0-16.5); Mean Corp Hgb Conc 31.8 g/dL (32-36); Mean Corpuscular Hgb 32.5 pg (27.0-32.0); Mean Corpuscular Volume 102.4 fL (80-94); Mean Platelet Vol. 10.1 fl (6.2-12.0); POSITIVE COUNT YES; POSITIVE MORPHOLOGY YES; Platelet Count 283 K/mm3 (150-450); RBC Distribution Width CV 13.2 % (11.6-14.6); RBC Distribution Width SD 49.2 fl (35.1-43.9); Red Blood Count 2.95 M/mm3 (4.6-6.2); White Blood Count 9.9 K/mm3 (4.4-11.0)
[2021-12-07 06:14] LABS: Differential Indicated MANUAL DIFF
[2021-12-07 06:29] LABS: Absolute Lymphocyte Count 2.09 X10^3/uL (0.83-4.51); Absolute Neutrophil Count 6.2 X10^3/uL (2.0-7.7); Lymphocyte 21 % (19-41); Monocyte 8 % (0-10); Myelocyte 8 % (0-0); Neutrophil-Band 10 % (0-5); Neutrophil-Segmented 52 % (47-70); Promyelocyte 1 % (0-0); Total Cells Counted 100 (MANUAL DIFF)
[2021-12-07 06:30] LABS: Platelet Estimate ADEQUATE (ADEQ); Red Cell Morphology NORM C+C NORMAL (NORM C&C)
[2021-12-07 06:33] LABS: Anion Gap 4 (5-15); BUN 11 mg/dL (7-18); BUN/Creat Ratio 19.1 RATIO (10-20); Calcium,Total 8.5 mg/dL (8.5-10.1); Chloride 110 mmol/L (98-107); Creatinine, Serum 0.58 mg/dL (0.70-1.30); EST Glomerular Filtration Rate 153 mL/min (>60); Est Glom Filt Rate - Afr Amer 185 mL/min (>60); Estimated Creatinine Clearance 139.85 ml/min; Glucose 167 mg/dL (74-106); Potassium 3.2 mmol/L (3.5-5.1); Sodium Level 141 mmol/L (136-145)
--- NOTE | 2021-12-07 07:25 | PN.HOSP_ITS ---
Subjective Subjective Seen and examined. No fever or chills. Heart rate and blood pressure in normal range. Patient had fever at the night of the surgery along with confusion, grogginess and chest pain. The issues have been taken care of. MRSA nasal screen, blood cultures x2, urine culture, urinary antigens for strep and Legionella all are negative. ACS ruled out with twelve-lead EKG which did not show any acute ST-T changes, high-sensitivity troponin and CK normal. Objective Data Objective Data Vital Signs: Vital Signs Temp Pulse Resp BP Pulse Ox 97.7 F L 79 16 156/87 H 96 12/07/21 02:00 12/07/21 02:00 12/07/21 02:00 12/07/21 02:00 12/07/21 02:00 Oxygen Flow Rate (L/min) 3 Oxygen Delivery Method Room Air Weight: 218 lb 4.122 oz Body Mass Index (BMI) 31.9 Intake & Output: Intake and Output for Last 24 Hours 12/05/21 12/06/21 12/07/21 23:59 23:59 23:59 Intake Total 2990.00 / 3190.00 2243.75 / 2852.50 1188.75 / 1188.75 Output Total 1975 / 2225 2050 / 2050 550 / 550 Balance 1015.00 / 965.00 193.75 / 802.50 638.75 / 638.75 Lab / Micro Data Result Diagrams: 12/07/21 05:40 12/07/21 05:40 Labs: Laboratory Results - last 24 hr 12/06/21 11:17: POC Glucose 281 H 12/06/21 16:34: POC Glucose 217 H 12/07/21 00:30: POC Glucose 200 H 12/07/21 05:03: POC Glucose 175 H 12/07/21 05:40: WBC 9.9, RBC 2.95 L, Hgb 9.6 L, Hct 30.2 L, MCV 102.4 H, MCH 32.5 H, MCHC 31.8 L, RDW Std Deviation 49.2 H, RDW Coeff of Mayi 13.2, Plt Count 283, MPV 10.1, Neut % (Auto) Not Reportable, Absolute Neuts (auto) 6.2, Absolute Lymphs (auto) 2.09, Total Counted 100, Neutrophils % (Manual) 52, Band Neutrophils % 10 H, Lymphocytes % (Manual) 21, Monocytes % (Manual) 8, Myelocytes % 8 H, Promyelocytes % 1 H, Diff Path Review February, Platelet Estimate ADEQUATE, RBC Morphology NORM C+C 12/07/21 05:40: Sodium 141, Potassium 3.2 L, Chloride 110 H, Carbon Dioxide 27.0, Anion Gap 4 L, BUN 11, Creatinine 0.58 L, Estim Creat Clear Calc 139.85, Est GFR (MDRD) Af Amer 185, Est GFR (MDRD) Non-Af 153, BUN/Creatinine Ratio 19.1, Glucose 167 H, Calcium 8.5 Micro: Microbiology 12/05/21 08:45 Stool Stool Occult Blood (ARNOLD) - Final 12/01/21 21:25 Blood Culture (Wb) - Right Wrist Blood Culture - Preliminary No growth in 48 hours. 12/01/21 21:16 Blood Culture (Wb) - Anticubital Right Blood Culture - Preliminary No growth in 48 hours. 12/01/21 21:45 Urine Catheter - Catheter Urine Culture - Final Culture exhibits no growth. 12/01/21 21:45 Urine Catheter - Catheter Legionella Antigen - Final 12/01/21 21:45 Urine Catheter - Catheter Streptococcus pneumoniae Antigen (M - Final 11/23/21 13:41 Swab (Method) Nasal Screen MRSA/MSSA - Final Physical Exam Narrative General: Alert, awake, oriented x3. Comprehensible, replying questions appropriately. HEENT: Atraumatic, PERRLA, EOMI, Normocephalic Oral: Deep oropharyngeal not well visualized. No Gingival or Mucosal Lesions/ Ulcerations Neck: Supple, No JVD, Negative Carotid Bruits Lungs: Air entry diminished in bilateral lung bases. No crepitation/rhonchi. No hypoxia or tachypnea Cardiovascular: Normal sinus rhythm, status post CABG, normal S1, Normal S2, No murmurs Abdomen: Bowel Sounds present, Soft, Non Tender, Non-Distended : no renal angle tenderness. No suprapubic tenderness. Extremities: No edema, Capillary Refill Less than 3 Seconds Skin: No rashes, No breakdown Musculoskeletal/spine: surgical dressing is dry. Had 360 fusion of lumbar spine, L5-S1 Neurological: Cranial nerves II-XII grossly intact, DTR 2+/4. Psych/Mental Status: Appropriate, normal affect Const alert, oriented x3 and no apparent distress General Appearance: cooperative HEENT normocephalic and moist oral mucous membranes Eyes PERRL, EOMs intact bilaterally and conjunctivae normal Neck supple and no JVD Resp normal respiratory effort, no retractions, no use of accessory muscles and clear to auscultation bilaterally Auscultation: Negative for crackles, rales, rhonchi or wheezes Cardio regular rhythm, S1 normal heart sound, S2 normal heart sound and no murmurs Rate: tachycardic GI soft to palpation, non-tender and non-distended; Negative for hepatosplenomegaly Extremity no clubbing, cyanosis or edema Skin no rashes or lesions noted Skin Narrative: Incision C/D/I Neuro no focal motor deficits and no sensory deficits noted Psych Mood & Affect: flat affect Assessment & Plan Assessment/Plan (1) DDD (degenerative disc disease), lumbar: PLAN: 1. Spondylolisthesis L5-S1 with instability: Patient had posterior fusion of L5-S1, lateral laminectomy L5-S1 on the left and right, anterior lumbar fusion L5-S1, application of anterior spine plate L5-S1, insertion of cage L5-S1 and use of allograft and autograft. Pain is well controlled. Patient wants to go home. Medically stable for discharge. Orthopedic spine surgeon Dr. Meyer, primary. 2. Acute encephalopathy most probably medication induced/infectious encephalopathy: Infectious work-up was negative. Similarly due to sedative and opioid medications given in the OR. ABG did not show hypercarbia. Twelve-lead EKG shows sinus tachycardia with no acute ST-T changes. Hypersensitivity troponin and CK normal. Reported lungs clear and expanded. T he patient had chest x-ray PA and lateral SOC neurology consult was done. Patient had MRI brain which was negative for acute change. Patient was on aspirin for old stroke which can be resumed by orthospine surgeon when symptoms appropriate after lumbar surgery. There is also concern for alcohol withdrawal syndrome but but patient is on sixth postop day. No current alcohol withdrawal symptoms. Acute encephalopathy resolved. COVID-19 PCR negative 3.: The artery disease status post three-vessel CABG, MACK to LAD, SVG OM, SVG to left PDA: Continue cardiac medications with holding parameter. 2D echo from May 2020 EF 55%. Trivial MR, trivial TR RVSP 26 MAG. No significant change from previous echo of March 2019. 4. Hypertension: Blood pressure and heart rate in normal range. 5. History of CVA, in the past 6. Diabetes mellitus type 2 glucose is between range of 150 to 193 mg/dL. A1c 5.6%. Past 3 months glucose is well controlled. Continue Accu-Cheks coverage with sliding scale. VT prophylaxis: Bilateral SCDs. Pharmacological prophylaxis as per surgeon Dr. Meyer Patient is medically stable for discharge. Charges/Coding Visit Charges Inpatient E&M: 07397 Subs Hosp L2
[2021-12-07] MEDS: Senna/Docusate Sodium 1 Tablet 2 TABLET PO (08:03)
[2021-12-07] MEDS: Folic Acid 1 MG Tablet PO (08:03)
[2021-12-07 08:04] VITALS: PULSE 80
[2021-12-07] MEDS: amLODIPine 10 MG Tablet PO (08:04)
[2021-12-07] MEDS: Thiamine Hydrochloride 100 MG Tablet PO (08:04)
[2021-12-07] MEDS: Lisinopril 5 MG Tablet PO (08:04)
[2021-12-07] MEDS: Metoprolol Tartrate 25 MG Tablet 12.5 MG PO (08:04)
[2021-12-07] MEDS: Menthol/Lanolin/Calamine/Znox 113 GM Tube 1 APPLIC TOPICAL (08:05)
[2021-12-07] MEDS: Acetaminophen 325 MG Tablet 650 MG PO (08:08)
[2021-12-07 08:21] VITALS: BP 151/80; PULSE 80; RESP 16; TEMP 36.5; O2SAT 96
[2021-12-07] MEDS: Potassium Chloride Oral Tablet 20 MEQ 40 MEQ PO ×2 (09:24→11:48)
[2021-12-07 11:11] VITALS: BP 135/76; PULSE 74; RESP 16; TEMP 36.9; O2SAT 98
[2021-12-07 11:11] LABS: Bedside Glucose 296 mg/dL (70-110)
--- NOTE | 2021-12-07 11:43 | CASEMGMT ---
Social Work SW met w/pt, he is alert and oriented today. SW spoke w/pt initially about the discharge plan. Pt states would like to go home, only wants to go to a senior care if necessary. SW explained will wait to see how pt does with therapy today, asked permission to call to include her in the discharge planning. Pt agreeable. SW called from pt's room, message left. SW then spoke w/pt about alcohol use, pt denies that this is an issue and that he needs any referrals. Pt states he did not drink for a week prior to his admission here, states he has no issue w/alcohol. SW spoke w/pt about LW/POA, pt interested in completing the documents. SW assisted pt in completing LW/POA, pt put Radha as POA and children as alternates. SW gave pt originals and copies, and copies placed in chart. Pt participating in therapy now, walking down hallway. SW let BRIT De La Torre know, pt would prefer to go home. She will follow up w/pt. SW remains avaiable should plan change from home, though at this time it is anticipated pt will be able to return home. JOSE Messina
--- NOTE | 2021-12-07 11:46 | CASEMGMT ---
Addendum entered by Britt Munoz 12/07/21 13:04: Received tc back from pt sig other. She states she will be home with him the rest of tonight after she picks pt up between 3:30-4p and tomorrow. She states she can arrange a family member to be with patient after this time as needed. She denies further questions/concerns. Addendum entered by Britt Munoz 12/07/21 12:41: TC to pt sig other as well to discuss her availability for supervision with pt. No answer at this time. Addendum entered by Britt Munoz 12/07/21 11:56: Spoke with therapy, stating pt safe to go home with supervision at home. Inquired if home health is recommended, states pt needs more supervision than therapy. SW placed call to and awaiting returned call. Original Note: LISSA CM in to pt room. Pt states he has a walker at home. Therapy in the room and asked if it had wheels. Pt states it has 2 wheels and a basket. No further needs for DME at this time.
--- NOTE | 2021-12-07 12:45 | DS.PCM_ITS ---
Providers Date of Admission: 12/01/21 Primary Care Physician: Dr. Avery Escalante, Consultations 12/01/21 17:48 Consult: Hospitalist Routine Consulting Provider: Moe Clarke Reason for Consult: Medical Management EMERGENT Consult: No MD Notified: Yes Date Notified: 12/01/21 Time Notified: 18:06 Method of Notification: Text 12/01/21 23:23 Consult: Infectious Disease Routine Consulting Provider: Naren Abdi Reason for Consult: sepsis EMERGENT Consult: No MD Notified: Yes Date Notified: 12/02/21 Time Notified: 07:25 Method of Notification: Text Consult: Motion Picture Photographer / Pulmonary Medicine Routine Consulting Provider: [place] Brooke Reason for Consult: sepsis EMERGENT Consult: No MD Notified: Yes Date Notified: 12/01/21 Time Notified: 23:24 Method of Notification: Text Reason For Visit: 360 LUMBAR FUSION L5-S1 Diagnosis Discharge Diagnosis (1) DDD (degenerative disc disease), lumbar: Status: Chronic Code(s): M51.36 - Other intervertebral disc degeneration, lumbar region Medications at Discharge Home Medications ammonium lactate 57 gm TP PRN PRN 10/04/17 nortriptyline 50 mg PO QHS 10/04/17 biotin 1 mg PO DAILY 04/01/18 desonide 1 applic TOPICAL BID PRN 04/01/18 insulin lispro See Protocol SQ TIDCM 04/01/18 ketoconazole 1 applic TOPICAL DAILY PRN 04/01/18 metoprolol tartrate 25 mg tablet 12.5 mg PO BID tab MDD . 07/19/18 albuterol sulfate 90 mcg/actuation aerosol inhaler 2 puff INHALATION Q4H PRN g 08/13/19 amlodipine 10 mg tablet 10 mg PO DAILY 08/13/19 cetirizine 10 mg tablet 10 mg PO DAILY 08/13/19 simvastatin 10 mg tablet 10 mg PO QHS 08/13/19 cyanocobalamin (vitamin B-12) 1,000 mcg IM Q30D 08/22/19 aspirin 81 mg tablet,delayed release 162 mg PO DAILY tab MDD . 10/12/19 furosemide 20 mg tablet 20 mg PO BID PRN tab 10/12/19 lisinopril 5 mg PO QDAY 03/26/20 hydrocodone-acetaminophen 5-325mg 5mg-325mg 1 tab PO TID 10/27/21 metformin 500 mg tablet 500 mg PO BID 10/27/21 pregabalin 100 mg capsule 100 mg PO TID 10/27/21 acetaminophen 500 mg PO BID 11/17/21 baclofen 20 mg PO TID 11/17/21 cholecalciferol (vitamin D3) [Vitamin D3] 125 mcg PO DAILY 11/17/21 coenzyme Q10 100 mg PO QHS 11/17/21 docusate sodium 100 mg PO BID 11/17/21 insulin glargine [Lantus Solostar U-100 Insulin] 10 unit SUBCUT DAILY 11/17/21 montelukast [Singulair] 10 mg PO QHS 11/17/21 omega-3 fatty acids [Fish Oil] 1,000 mg PO DAILY 11/17/21 Hospital Course Summary of Care Provided Hospital Course: Cesar Espinoza was admitted on December 01, 2021. The date of admission he underwent 360 degree fusion at the L5-S1 level. He is also underwent bilateral laminectomy decompressions of the pars defects with decompression of both L5 nerve roots. He tolerated the procedure well. However upon admission to the floor he developed an encephalopathy. We still do not know the actual cause of the encephalopathy. Things such as stroke have been ruled out. Had an infection blood cultures were negative. But gradually over time since then his mind has slowly cleared and when I saw him today was not perfect but he was doing quite well. He relates now that both his left and right leg pain are gone. His back does not hurt all too bad at all. He still a little unsteady on his walker. He will be with his at home. She works every day until 3 potential be home with him to help him if he needs some help. Neurologically he is intact on examination. Both his dressings were removed and both incisions are healing well. I told him that he can start showering tomorrow. Has an appointment to see me next Tuesday. I will give him hydrocodone 7.5 mg for pain. He can take 4 a day. He knows to call my office in the event that something should not seem right however at this point he is doing extremely well. His will pick him up today after work. He already has a walker at home for home use. This is the end of discharge summary on Cesar Espinoza. This is Dr. Meyer dictating. Weight / BMI Weight Weight: 218 lb 4.122 oz Body Mass Index (BMI) 31.9 ABG / Lab / Microbiology Data Result Diagrams: 12/07/21 05:40 12/07/21 05:40 Laboratory: Laboratory Results - last 24 hr 12/06/21 16:34: POC Glucose 217 H 12/07/21 00:30: POC Glucose 200 H 12/07/21 05:03: POC Glucose 175 H 12/07/21 05:40: WBC 9.9, RBC 2.95 L, Hgb 9.6 L, Hct 30.2 L, MCV 102.4 H, MCH 32.5 H, MCHC 31.8 L, RDW Std Deviation 49.2 H, RDW Coeff of Mayi 13.2, Plt Count 283, MPV 10.1, Neut % (Auto) Not Reportable, Absolute Neuts (auto) 6.2, Absolute Lymphs (auto) 2.09, Total Counted 100, Neutrophils % (Manual) 52, Band Neutrophils % 10 H, Lymphocytes % (Manual) 21, Monocytes % (Manual) 8, Myelocytes % 8 H, Promyelocytes % 1 H, Diff Path Review May foll, Platelet Estimate ADEQUATE, RBC Morphology NORM C+C 12/07/21 05:40: Sodium 141, Potassium 3.2 L, Chloride 110 H, Carbon Dioxide 27.0, Anion Gap 4 L, BUN 11, Creatinine 0.58 L, Estim Creat Clear Calc 139.85, Est GFR (MDRD) Af Amer 185, Est GFR (MDRD) Non-Af 153, BUN/Creatinine Ratio 19.1, Glucose 167 H, Calcium 8.5 12/07/21 11:02: POC Glucose 296 H Microbiology: Microbiology 12/01/21 21:25 Blood Culture (Wb) - Right Wrist Blood Culture - Final No growth in 5 days. 12/01/21 21:16 Blood Culture (Wb) - Anticubital Right Blood Culture - Final No growth in 5 days. 12/05/21 08:45 Stool Stool Occult Blood (ARNOLD) - Final 12/01/21 21:45 Urine Catheter - Catheter Urine Culture - Final Culture exhibits no growth. 12/01/21 21:45 Urine Catheter - Catheter Legionella Antigen - Final 12/01/21 21:45 Urine Catheter - Catheter Streptococcus pneumoniae Antigen (M - Final 11/23/21 13:41 Swab (Method) Nasal Screen MRSA/MSSA - Final Meaningful Use Info Meaningful Use Diagnoses (Choose all that apply): None applicable Discharge Plan Admission Admit Date/Time: 12/01/21 05:56 Primary Reason for Your Visit: back surgery Attending Provider: Moe Clarke Primary Care Provider: Avery Escalante Consulting Providers: Pascual Glez ; Moe Clarke ; Naren Abdi ; [place] Brooke Discharge Orders/Prescriptions Prescriptions: No Action amlodipine 10 mg tablet 10 mg PO DAILY RF: 0 albuterol sulfate [ProAir HFA] 90 mcg/actuation HFA aerosol inhaler 2 puff INHALATION Q4H PRN (Reason: Sob &/Or Wheezing) RF: 0 cetirizine 10 mg tablet 10 mg PO DAILY RF: 0 simvastatin 10 mg tablet 10 mg PO QHS RF: 0 metformin 500 mg tablet 500 mg PO BID RF: 0 hydrocodone-acetaminophen 5-325 mg tablet 1 tab PO TID RF: 0 pregabalin [Lyrica] 100 mg capsule 100 mg PO TID RF: 0 ammonium lactate 57 GM lotion 57 gm TP PRN PRN (Reason: SKIN) RF: 0 nortriptyline 50 MG capsule 50 mg PO QHS RF: 0 desonide 1 APPLIC cream 1 applic TOPICAL BID PRN (Reason: Dry Skin) RF: 0 ketoconazole 15 GM cream 1 applic TOPICAL DAILY PRN (Reason: Dry Skin) RF: 0 insulin lispro 100 UNIT/ML insulin pen See Protocol unit SQ TIDCM RF: 0 biotin 1 MG tablet 1 mg PO DAILY RF: 0 metoprolol tartrate 25 mg tablet 12.5 mg PO BID MDD . RF: 0 aspirin 81 mg tablet,delayed release (DR/EC) 162 mg PO DAILY MDD . RF: 0 cyanocobalamin (vitamin B-12) 1,000 MCG/ML solution 1,000 mcg IM Q30D RF: 0 lisinopril 5 MG tablet 5 mg PO QDAY RF: 0 acetaminophen 500 mg Tablet 500 mg PO BID RF: 0 baclofen 20 mg Tablet 20 mg PO TID RF: 0 montelukast [Singulair] 10 mg Tablet 10 mg PO QHS RF: 0 docusate sodium 100 mg Tablet 100 mg PO BID RF: 0 Fish Oil Capsule 1,000 mg PO DAILY RF: 0 Lantus Solostar U-100 Insulin 100 unit/mL (3 mL) Insulin Pen 10 unit SUBCUT DAILY RF: 0 cholecalciferol (vitamin D3) [Vitamin D3] 125 mcg (5,000 unit) Tablet 125 mcg PO DAILY RF: 0 coenzyme Q10 100 mg Tablet 100 mg PO QHS RF: 0 furosemide 20 mg tablet 20 mg PO BID PRN (Reason: water retention) RF: 0 Other Ambulatory Orders: Magnesium (Routine) Timeframe: [id number] Facility: [facility] - Location: Laboratory Ordered By: Dr. Pascual Glez Referrals / Follow Up: Avery Escalante DO [Primary Care Provider] - Disposition Disposition (needs filled in before D/C Order can be placed): Home, Self Care
[2021-12-07 14:20] LABS: Pathologist Review Reviewed
--- NOTE | 2021-12-07 14:30 | CHAPLAIN ---
Type of Pastoral Visit _x__ Initial Visit ___ Follow-up Visit ___ On-call Visit ___ General Patient Visit ___ Spiritual Assessment ___ Family Conference ___ Bereavement ___ Rapid Response ___ Code Blue ___ Other (describe below) Pastoral Care Referral From _x__ Patient ___ Family ___ Nurse ___ Physician ___ Yarn Mercerizer Operator Helper ___ Instrument Repairer Steam Plant ___ Other (describe below) Sacrament/Intervention _x__ Active listening ___ Anointing ___ Sikhism ___ Bereavement ___ Communion ___ Leticia exploration ___ _x__ Life review _x__ Prayer ___ Reconciliation ___ Sacrament of Sick _x__ Supportive presence ___ Wedding ___ Other (describe below) Pastoral Comments 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
== END 2021-12-07 16:43 | disposition home or self-care (01) | DRG 304 ==
LOC: ACINP 06:04 → MS3 17:19 → ICU 12-02 00:10 → MS3 12-03 10:20
PROVIDERS: Anesthesiology; Family Medicine; Nurse Practitioner Family; Admitting Provider Orthopaedic Surgery; PCP Student in an Organized Health Care Education/Training Program; Referring Provider Orthopaedic Surgery; Visit Provider Internal Medicine
PROC: 0SG30A0 Fusion of Lumbosacral Joint with Interbody Fusion Device, Anterior Approach, Anterior Column, Open Approach (ICD-10-PCS; principal; 2021-12-01 07:00)
DX: M43.17 Spondylolisthesis, lumbosacral region (principal); G93.41 Metabolic encephalopathy; G92.8 Other toxic encephalopathy; E11.40 Type 2 diabetes mellitus with diabetic neuropathy, unspecified; E11.51 Type 2 diabetes mellitus with diabetic peripheral angiopathy without gangrene; Z79.4 Long term (current) use of insulin; I69.354 Hemiplegia and hemiparesis following cerebral infarction affecting left non-dominant side; E51.2 Wernicke's encephalopathy; M51.36 Other intervertebral disc degeneration, lumbar region; E78.5 Hyperlipidemia, unspecified; I25.10 Atherosclerotic heart disease of native coronary artery without angina pectoris; I10 Essential (primary) hypertension; I25.2 Old myocardial infarction; F17.220 Nicotine dependence, chewing tobacco, uncomplicated; R50.82 Postprocedural fever; Z79.82 Long term (current) use of aspirin; Z20.822 Contact with and (suspected) exposure to COVID-19; Z79.899 Other long term (current) drug therapy; Z95.1 Presence of aortocoronary bypass graft
CPT/HCPCS: 36415; 36600; 70450; 70551; 71045; 71046; 72020; 74019; 80048; 80053; 81001; 82274; 82550; 82803; 82962; 83036; 83605; 83735; 84100; 84132; 84484; 85025; 85610; 85730; 86703; 86706; 86708; 86803; 87040; 87081; 87086; 87449; 87635; 88304; 93005; 94762; 97116; 97162; 97167; 97530; 97535; 97802; 99406; C1713; J7030; J7040; J7120; A4216; J2405; U0003; U0005

== ENCOUNTER → 2022-03-18 | Outpatient (CLI) | payer MEDICAID, SELFPAY ==
[2022-03-18 13:07] LABS: Absolute Lymphocyte Count 1.39 X10^3/uL (0.83-4.51); Absolute Neutrophil Count 4.2 X10^3/uL (2.0-7.7); Basophil# 0.05 X10^3/uL; Basophil% 0.8 % (0-1); Eosinophil# 0.29 X10^3/uL; Eosinophils% 4.4 % (0-5); Hematocrit 42.9 % (40-54); Hemoglobin 13.2 g/dL (13.0-16.5); Lymphocyte # 1.39 X10^3/ul (0.83-4.51); Lymphocyte % 20.9 % (19-41); Mean Corp Hgb Conc 30.8 g/dL (32-36); Mean Corpuscular Volume 100.7 fL (80-94); Mean Platelet Vol. 10.6 fl (6.2-12.0); Monocyte# 0.57 X10^3/uL; Monocyte% 8.6 % (0-10); NRBC Flagged by Analyzer 0 % (0-5); Neutrophil # 4.21 X10^3/uL (2.7-7.7); Neutrophil % 63.2 % (47-70); Platelet Count 247 K/mm3 (150-450); RBC Distribution Width CV 15.1 % (11.6-14.6); RBC Distribution Width SD 55.9 fl (35.1-43.9); Red Blood Count 4.26 M/mm3 (4.6-6.2); White Blood Count 6.7 K/mm3 (4.4-11.0)
[2022-03-18 13:50] LABS: Anion Gap 4 (5-15); BUN 21 mg/dL (7-18); BUN/Creat Ratio 24.6 RATIO (10-20); Calcium,Total 9.6 mg/dL (8.5-10.1); Chloride 105 mmol/L (98-107); Creatinine, Serum 0.85 mg/dL (0.70-1.30); EST Glomerular Filtration Rate 97 mL/min (>60); Est Glom Filt Rate - Afr Amer 117 mL/min (>60); Glucose 179 mg/dL (74-106); Sodium Level 140 mmol/L (136-145)
== END | disposition home or self-care (01) ==
LOC: LAB 11:32
PROVIDERS: PCP Student in an Organized Health Care Education/Training Program; Referring Provider Nurse Practitioner Gerontology; Visit Provider Nurse Practitioner Gerontology
DX: R06.00 Dyspnea, unspecified (principal)
CPT/HCPCS: 36415; 80048; 83880; 85025

== ENCOUNTER 2022-06-24 19:12 | Emergency (ER) | payer MEDICAID, SELFPAY ==
[2022-06-24 19:12] VITALS: BP 131/83; PULSE 88; RESP 16; TEMP 36.9; O2SAT 95; BMI 31.5
--- NOTE | 2022-06-24 20:03 | EDS_ITS ---
HPI History of Present Illness Chief Complaint: Other, Pain/Inj Informant: patient Narrative Narrative: Patient is already in here for mastoiditis on CT. He states he started with some drainage and soreness in the left ear about 3 weeks ago. He was placed on an unknown eardrop. This did not help. He has been placed on Augmentin. He has been on that for about a week or 10 days. He states is not really changing. Pain is not getting worse or better. He does not feel sick. He has no nausea vomiting fevers or chills. He states his sugars have not been going up crazy. However, he was just recently started on what sounds like prednisone tablets to stop this. Therefore I am suspicious his blood sugars probably going to rise with this as is his white count. He had an outpatient CAT scan today done at [facility]. I do not have the images but I do have the report. It states that there is partial opacification of the left mastoid air cells and left mesotympanum, which could represent acute left otomastoiditis. Partial obstruction of the left external auditory canal. Patient was sent in here for IV antibiotics. 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 He was called earlier today. But he does not feel sick so he did not haney in. PFSH [facility] Medical History Acute congestive heart failure Alcohol use Arthritis Atherosclerotic heart disease of [place] coronary artery without angina pectoris Back pain [place] deformity of finger of right hand Callous ulcer with fat layer exposed Cardiology follow-up encounter Cellulitis lft foot failed outpatient tx Cerebrovascular disease Chewing tobacco nicotine dependence Chronic skin ulcer with fat layer exposed Chronic ulcer of left foot with fat layer exposed CVA (cerebral vascular accident) Diabetes mellitus type 2 with complications Diabetic foot ulcer associated with type 2 diabetes mellitus Discoloration of skin of finger Environmental allergies Essential (primary) hypertension Finger osteomyelitis, right Frostbite of finger of right hand H/O stroke associated with blood clotting tendency Hammertoe of left foot Hammertoe of right foot History of frostbite HLD (hyperlipidemia) Hx of cardiovascular stress test Hx of echocardiogram Hx of edema Hypertension Insulin dependent diabetes mellitus Leg cramps Leg pain Neuropathy Non-compliance Non-healing surgical wound Nonhealing nonsurgical wound with fat layer exposed NSTEMI (non-ST elevated myocardial infarction) (~03/2018) Old myocardial infarction Other specified peripheral vascular diseases Segmental and somatic dysfunction of cervical region Segmental and somatic dysfunction of lumbar region Segmental and somatic dysfunction of thoracic region Skin ulcer of finger with fat layer exposed Syncope Thoracic neuritis Ulcer of right foot with fat layer exposed Xerosis cutis Xerosis of skin Home Medications nortriptyline 50 mg capsule 50 mg PO QHS muscle relaxer 10/04/17 [History Last Taken 03/25/20] biotin 1 mg tablet 1 mg PO DAILY general health 04/01/18 [History Last Taken 03/26/20] desonide 0.05 % topical cream 1 applic topical BID PRN Dry Skin 04/01/18 [History Last Taken 03/30/18] insulin lispro 100 unit/mL subcutaneous pen See Protocol SQ TIDCM diabetes 04/01/18 [History Last Taken 03/26/20] ketoconazole 2 % topical cream 1 applic topical DAILY PRN Dry Skin 04/01/18 [History Last Taken 03/30/18] metoprolol tartrate 25 mg tablet 12.5 mg PO BID heart 07/19/18 [History Last Taken 12/01/21] albuterol sulfate 90 mcg/actuation aerosol inhaler (ProAir HFA) 2 puff inhalation Q4H PRN Sob &/Or Wheezing 08/13/19 [History Last Taken Unknown] amlodipine 10 mg tablet 10 mg PO DAILY blood pressure 08/13/19 [History Last Taken 12/01/21] cetirizine 10 mg tablet 10 mg PO DAILY allergies 08/13/19 [History Last Taken 03/26/20] simvastatin 10 mg tablet 10 mg PO QHS cholesterol 08/13/19 [History Last Taken 03/25/20] cyanocobalamin (vitamin B-12) 1,000 mcg/mL injection solution 1,000 mcg IM Q30D supplement 08/22/19 [History Last Taken 03/26/20] aspirin 81 mg tablet,delayed release 162 mg PO DAILY blood flow 10/12/19 [History Last Taken 11/25/21] lisinopril 5 mg tablet 5 mg PO QDAY blood pressure 03/26/20 [History Last Taken 12/01/21] metformin 500 mg tablet 500 mg PO BID DIABETES 10/27/21 [History Last Taken Unknown] baclofen 20 mg tablet 20 mg PO TID PAIN 11/17/21 [History Last Taken Unknown] cholecalciferol (vitamin D3) 125 mcg (5,000 unit) tablet (Vitamin D3) 125 mcg PO DAILY SUPPLEMENT 11/17/21 [History Last Taken Unknown] coenzyme Q10 100 mg tablet 100 mg PO QHS SUPPLEMENT 11/17/21 [History Last Taken Unknown] montelukast 10 mg tablet (Singulair) 10 mg PO QHS LUNGS 11/17/21 [History Last Taken Unknown] omega-3 fatty acids 1,000 mg PO DAILY SUPPLEMENT 11/17/21 [History Last Taken Unknown] acetaminophen 500 mg tablet 500 mg PO TID PAIN 04/26/22 [History Last Taken Unknown] ammonium lactate 12 % lotion 1 applic topical PRN PRN SKIN 04/26/22 [History Last Taken Unknown] docusate sodium 100 mg capsule 100 mg PO BID PRN 04/26/22 [History Last Taken Unknown] furosemide 20 mg tablet 40 mg PO .COMPLEX water retention 04/26/22 [History Last Taken Unknown] insulin glargine 100 unit/mL (3 mL) subcutaneous pen (Lantus Solostar U-100 Insulin) 8 unit subcut DAILY DIABETES 04/26/22 [History Last Taken Unknown] levomefolate Ca 3 mg-B6 35 mg-meB12 2 mg-algal oil 90.314 mg capsule (Foltanx RF) 1 cap PO BID 04/26/22 [History Last Taken Unknown] magnesium oxide 500 mg PO DAILY 04/26/22 [History Last Taken Unknown] polyethylene glycol 3350 17 gram/dose oral powder 17 g PO DAILY 04/26/22 [History Last Taken Unknown] pregabalin 100 mg capsule (Lyrica) 200 mg PO TID PAIN 04/26/22 [History Last Taken Unknown] turmeric root extract 500 mg tablet 1,000 mg PO DAILY 04/26/22 [History Last Taken Unknown] vardenafil 20 mg tablet 20 mg PO DAILY PRN 04/26/22 [History Last Taken Unknown] ciprofloxacin 0.3 %-dexamethasone 0.1 % ear drops,suspension (Ciprodex) 4 drp EACH EAR BID 10 days #7.5 mL 06/24/22 [Rx Last Taken Unknown] sulfamethoxazole 800 mg-trimethoprim 160 mg tablet (Bactrim DS) 2 tab PO BID #40 tabs 06/24/22 [Rx Last Taken Unknown] Allergy/AdvReac Type Severity Reaction Status Date / Time [id number] Reductase AdvReac Severe myalgia Verified 06/24/22 19:16 Inhibitor atorvastatin AdvReac Unknown Verified 06/24/22 19:16 Family History Father Diabetes Heart disease Hypertension Grandfather Diabetes Heart disease Grandmother Diabetes Mother Diabetes Hypertension Other Arthritis Surgical History Amputation toe H/O three vessel coronary artery bypass (~04/12/18) History of hand surgery Hx of cardiac catheterization Hx of elbow surgery Hx of left knee surgery Status post finger joint fusion Social History Smoking Status: Current every day smoker tobacco type: smokeless tobacco Smokeless tobacco user: chewing tobacco second hand exposure: Yes alcohol intake: current alcohol intake frequency: 0-2 drinks per day Alcohol type: beer substance use type: does not use additional social history: Does Take Aspirin Does not take Ibuprofen ROS ROS ED Constitutional Constitutional ED: Denies chills, fever(s) or subjective Eyes Eyes: Denies blurry vision, change in vision or diplopia ENT ENT ED: Reports ear pain; Denies rhinorrhea or sore throat Cardiovascular Cardiovascular: Denies chest pain or palpitations Respiratory/Chest Respiratory/Chest: Denies cough Gastrointestinal Gastrointestinal: Denies nausea Genitourinary Genitourinary ED: Denies urinary frequency Musculoskeletal Musculoskeletal: Denies neck pain Integumentary Denies rash Neurologic Neurologic: Denies headache(s), paresthesias or weakness Endocrine Endocrinology: Denies polydipsia or polyuria Hematologic/Lymphatic Hematologic/Lymphatic: Denies easy bleeding or easy bruising Allergic/Immunologic Allergic/Immunologic ED: Denies urticaria EXAM Physical Exam Const Vital Signs: 06/24/22 19:12 Temperature 98.4 F Temperature Source Temporal Pulse Rate 88 Respiratory Rate 16 Blood Pressure 131/83 H Blood Pressure Mean 99 Pulse Ox 95 Oxygen Delivery Method Room Air Positive well nourished and well developed Constitutional Narrative: Patient is nontoxic. When I walk in he is reading the newspaper peer General Appearance ED: well developed and NAD HEENT Reports moist mucous membranes HEENT Narrative: No intraoral swelling or dental tenderness. No external facial swelling or erythema. The auricle looks normal. There is some moist yellowish discharge in the external auditory canal on the left. No marked mastoid tenderness. No external swelling or erythema in the area. No lymph nodes. Eyes EOMs intact bilaterally Eyes Narrative: No pain with range of motion. No proptosis Neck no lymphadenopathy Chest Wall inspection of chest normal Chest Narrative: Well-healed median sternotomy Resp normal respiratory effort and clear to auscultation bilaterally Cardio regular rate and regular rhythm GI normal to inspection, nondistended, normoactive bowel sounds Back/Spine no CVA tenderness Extremity normal to inspection Psych mental status grossly normal Skin no rashes or lesions noted MDM MDM MDM Narrative Medical decision making narrative: I contacted ENT, Dr. Mata. We went over the results of the CT scan. We also discussed that the patient is really not sick. He stayed in the less his white count is extremely high up into the 20s or is glucose is very high and those items would bring him in the hospital, he does not need admission for this. He states these are oftentimes resistant to Augmentin. He recommended that as long as his blood work does not show marked abnormalities that we place him on Ciprodex drops and Bactrim DS at 2 tablets twice daily. They will follow him closely in the office. I am awaiting blood work at this time. CBC shows a minimal nonspecific elevation at 11.4. This can easily be explained by the recent steroids. Platelets do not show elevation. Electrolytes are overall relatively normal. He shows mild signs of dehydration only. But he has no symptoms of this. His glucose is therapeutic at 96. Patient is happy with this plan. He does not want to come in the hospital he will follow-up with ENT. Lab Data Attestation: I reviewed the patient's lab results. Labs: Laboratory Results - last 24 hr 06/24/22 06/24/22 20:11 20:11 WBC 11.4 H RBC 3.72 L Hgb 12.8 L Hct 38.2 L MCV 102.7 H MCH 34.4 H MCHC 33.5 RDW Std Deviation 52.9 H RDW Coeff of Mayi 14.1 Plt Count 237 MPV 10.0 Immature Gran % (Auto) 2.700 H Neut % (Auto) 76.9 H Lymph % (Auto) 13.7 L [place] % (Auto) 5.9 Eos % (Auto) 0.3 Baso % (Auto) 0.5 Absolute Neuts (auto) 8.8 H Absolute Lymphs (auto) 1.56 Nucleated RBC % 0 Sodium 138 Potassium 4.7 Chloride 103 Carbon Dioxide 28.0 Anion Gap 7 BUN 28 H Creatinine 0.93 Estim Creat Clear Calc 86.13 Est GFR (MDRD) Af Amer 106 Est GFR (MDRD) Non-Af 88 BUN/Creatinine Ratio 30.1 H Glucose 96 Calcium 9.4 Discharge Plan Triage Chief Complaint: Other, Pain/Inj ED Provider: Shaji Rivas Dx/Rx/DC Orders Clinical Impression: Mastoiditis of left side Instructions: When Your Child Has Mastoiditis Prescriptions: New ciprofloxacin-dexamethasone [Ciprodex] 0.3-0.1 % drops,suspension 4 drp EACH EAR BID 10 Days Qty: 7.5 0RF sulfamethoxazole-trimethoprim [Bactrim DS] 800-160 mg tablet 2 tab PO BID Qty: 40 0RF No Action amlodipine 10 mg tablet 10 mg PO DAILY albuterol sulfate [ProAir HFA] 90 mcg/actuation HFA aerosol inhaler 2 puff INHALATION Q4H PRN (Reason: Sob &/Or Wheezing) cetirizine 10 mg tablet 10 mg PO DAILY simvastatin 10 mg tablet 10 mg PO QHS metformin 500 mg tablet 500 mg PO BID pregabalin [Lyrica] 100 mg capsule 200 mg PO TID turmeric root extract 500 mg tablet 1,000 mg PO DAILY polyethylene glycol 3350 17 gram/dose powder 17 g PO DAILY vardenafil 20 mg tablet 20 mg PO DAILY PRN docusate sodium 100 mg capsule 100 mg PO BID PRN [id number]-[id number] oil [Foltanx RF] 3 mg-35 mg-2 mg -90.314 mg capsule 1 cap PO BID furosemide 20 mg tablet 40 mg PO .COMPLEX Rx Instructions: 40 mg orally; 40mg in the morning, and 20mg in the afternoon. magnesium oxide 250 mg magnesium tablet 500 mg PO DAILY nortriptyline 50 MG capsule 50 mg PO QHS ammonium lactate 12 % lotion 1 applic topical PRN PRN (Reason: SKIN) desonide 1 APPLIC cream 1 applic TOPICAL BID PRN (Reason: Dry Skin) ketoconazole 15 GM cream 1 applic TOPICAL DAILY PRN (Reason: Dry Skin) Label Comments: TO FACE DAILY insulin lispro 100 UNIT/ML insulin pen See Protocol SQ TIDCM Protocol: 6. Sliding Scale Insulin Custom Condition: mg/dl range Dose/Route: Number of Units Protocol Text: Custom Sliding Scale Label Comments: 12-20 UNITS Rx Instructions: sliding scale biotin 1 MG tablet 1 mg PO DAILY metoprolol tartrate 25 mg tablet 12.5 mg PO BID MDD . aspirin 81 mg tablet,delayed release (DR/EC) 162 mg PO DAILY MDD . cyanocobalamin (vitamin B-12) 1,000 MCG/ML solution 1,000 mcg IM Q30D lisinopril 5 MG tablet 5 mg PO QDAY baclofen 20 mg Tablet 20 mg PO TID montelukast [Singulair] 10 mg Tablet 10 mg PO QHS Fish Oil Capsule 1,000 mg PO DAILY cholecalciferol (vitamin D3) [Vitamin D3] 125 mcg (5,000 unit) Tablet 125 mcg PO DAILY coenzyme Q10 100 mg Tablet 100 mg PO QHS Lantus Solostar U-100 Insulin 100 unit/mL (3 mL) insulin pen 8 unit SUBCUT DAILY acetaminophen 500 mg tablet 500 mg PO TID Primary Care Provider: Avery Escalante Referrals: Conor Cornell MD [Med Staff - Active Staff] - 3-5 Days (Call tomorrow for an appointment early next week.) Avery Escalante DO [Primary Care Provider] - Disposition Disposition: Home, Self Care
[2022-06-24 20:18] LABS: Absolute Lymphocyte Count 1.56 X10^3/uL (0.83-4.51); Absolute Neutrophil Count 8.8 X10^3/uL (2.0-7.7); Basophil# 0.06 X10^3/uL; Basophil% 0.5 % (0-1); Eosinophil# 0.03 X10^3/uL; Eosinophils% 0.3 % (0-5); Hematocrit 38.2 % (40-54); Hemoglobin 12.8 g/dL (13.0-16.5); Lymphocyte # 1.56 X10^3/ul (0.83-4.51); Lymphocyte % 13.7 % (19-41); Mean Corp Hgb Conc 33.5 g/dL (32-36); Mean Corpuscular Hgb 34.4 pg (27.0-32.0); Mean Corpuscular Volume 102.7 fL (80-94); Monocyte# 0.67 X10^3/uL; Monocyte% 5.9 % (0-10); NRBC Flagged by Analyzer 0 % (0-5); Neutrophil # 8.75 X10^3/uL (2.7-7.7); Neutrophil % 76.9 % (47-70); Platelet Count 237 K/mm3 (150-450); RBC Distribution Width CV 14.1 % (11.6-14.6); RBC Distribution Width SD 52.9 fl (35.1-43.9); Red Blood Count 3.72 M/mm3 (4.6-6.2); White Blood Count 11.4 K/mm3 (4.4-11.0)
[2022-06-24 20:32] LABS: Anion Gap 7 (5-15); BUN 28 mg/dL (7-18); BUN/Creat Ratio 30.1 RATIO (10-20); Calcium,Total 9.4 mg/dL (8.5-10.1); Chloride 103 mmol/L (98-107); Creatinine, Serum 0.93 mg/dL (0.70-1.30); EST Glomerular Filtration Rate 88 mL/min (>60); Est Glom Filt Rate - Afr Amer 106 mL/min (>60); Estimated Creatinine Clearance 86.13 ml/min; Glucose 96 mg/dL (74-106); Potassium 4.7 mmol/L (3.5-5.1); Sodium Level 138 mmol/L (136-145)
[2022-06-24 21:12] VITALS: RESP 18
[2022-06-24 21:13] VITALS: RESP 18
[2022-06-24] MEDS: Smz/Tmp Ds Tablet 2 TABLET PO (21:21)
== END 2022-06-24 22:15 | disposition home or self-care (01) ==
PROVIDERS: Emergency Provider Emergency Medicine; PCP Student in an Organized Health Care Education/Training Program; Visit Provider Emergency Medicine
DX: H70.92 Unspecified mastoiditis, left ear (principal); I11.0 Hypertensive heart disease with heart failure; I50.9 Heart failure, unspecified; E11.40 Type 2 diabetes mellitus with diabetic neuropathy, unspecified; Z79.4 Long term (current) use of insulin; E86.0 Dehydration; I25.10 Atherosclerotic heart disease of native coronary artery without angina pectoris; E78.5 Hyperlipidemia, unspecified; F17.220 Nicotine dependence, chewing tobacco, uncomplicated; Z86.73 Personal history of transient ischemic attack (TIA), and cerebral infarction without residual deficits; I25.2 Old myocardial infarction; Z79.82 Long term (current) use of aspirin; Z79.899 Other long term (current) drug therapy; Z95.1 Presence of aortocoronary bypass graft
CPT/HCPCS: 80048; 85025; 87070; 87075; 87077; 87205; 99284; A4216

== ENCOUNTER 2022-07-06 16:16 | Emergency (ER) | payer MEDICAID, SELFPAY ==
[2022-07-06] VITALS (9 sets, daily range): BP systolic 121–152; BP diastolic 72–79; PULSE 84–103; RESP 13–19; TEMP 36.7; O2SAT 93–99; BMI 31.5
--- NOTE | 2022-07-06 16:36 | ED.VIS.CHEST ---
HPI History of Present Illness Chief Complaint: Chest Pain Informant: patient Onset/Context/Timing Onset: Days (2 to 3 days) Activity at onset: gradual Timing: Waxes and wanes Quality: Positive for Heaviness and Tightness Location: - (Band across anterior chest) Current Severity: Mild Maximum Severity: Moderate Narrative Narrative: Patient present secondary to chest pain. Patient states the past couple weeks has been having some tightness across his chest and he thought he lifted something heavy. Over the last 2 or 3 days it has been slightly worse. Is worse with palpation but not worsened with moving his arms. He went to his PCP today who noted some EKG changes and sent him to the ER. Patient does have cardiac history with prior bypass surgery. He takes 2 baby aspirin daily. [facility] Medical History Acute congestive heart failure Alcohol use Arthritis Atherosclerotic heart disease of [place] coronary artery without angina pectoris Back pain Boutonniere deformity of finger of right hand Callous ulcer with fat layer exposed Cardiology follow-up encounter Cellulitis lft foot failed outpatient tx Cerebrovascular disease Chewing tobacco nicotine dependence Chronic skin ulcer with fat layer exposed Chronic ulcer of left foot with fat layer exposed CVA (cerebral vascular accident) Diabetes mellitus type 2 with complications Diabetic foot ulcer associated with type 2 diabetes mellitus Discoloration of skin of finger Environmental allergies Essential (primary) hypertension Finger osteomyelitis, right Frostbite of finger of right hand H/O stroke associated with blood clotting tendency Hammertoe of left foot Hammertoe of right foot History of frostbite HLD (hyperlipidemia) Hx of cardiovascular stress test Hx of echocardiogram Hx of edema Hypertension Insulin dependent diabetes mellitus Leg cramps Leg pain Neuropathy Non-compliance Non-healing surgical wound Nonhealing nonsurgical wound with fat layer exposed NSTEMI (non-ST elevated myocardial infarction) (~03/2018) Old myocardial infarction Other specified peripheral vascular diseases Segmental and somatic dysfunction of cervical region Segmental and somatic dysfunction of lumbar region Segmental and somatic dysfunction of thoracic region Skin ulcer of finger with fat layer exposed Syncope Thoracic neuritis Ulcer of right foot with fat layer exposed Xerosis cutis Xerosis of skin Home Medications nortriptyline 50 mg capsule 50 mg PO QHS muscle relaxer 10/04/17 [History Last Taken 03/25/20] biotin 1 mg tablet 1 mg PO DAILY general health 04/01/18 [History Last Taken 03/26/20] desonide 0.05 % topical cream 1 applic topical BID PRN Dry Skin 04/01/18 [History Last Taken 03/30/18] insulin lispro 100 unit/mL subcutaneous pen See Protocol SQ TIDCM diabetes 04/01/18 [History Last Taken 03/26/20] ketoconazole 2 % topical cream 1 applic topical DAILY PRN Dry Skin 04/01/18 [History Last Taken 03/30/18] metoprolol tartrate 25 mg tablet 12.5 mg PO BID heart 07/19/18 [History Last Taken 12/01/21] albuterol sulfate 90 mcg/actuation aerosol inhaler (ProAir HFA) 2 puff inhalation Q4H PRN Sob &/Or Wheezing 08/13/19 [History Last Taken Unknown] amlodipine 10 mg tablet 10 mg PO DAILY blood pressure 08/13/19 [History Last Taken 12/01/21] cetirizine 10 mg tablet 10 mg PO DAILY allergies 08/13/19 [History Last Taken 03/26/20] simvastatin 10 mg tablet 10 mg PO QHS cholesterol 08/13/19 [History Last Taken 03/25/20] cyanocobalamin (vitamin B-12) 1,000 mcg/mL injection solution 1,000 mcg IM Q30D supplement 08/22/19 [History Last Taken 03/26/20] aspirin 81 mg tablet,delayed release 162 mg PO DAILY blood flow 10/12/19 [History Last Taken 11/25/21] lisinopril 5 mg tablet 5 mg PO QDAY blood pressure 03/26/20 [History Last Taken 12/01/21] metformin 500 mg tablet 500 mg PO BID DIABETES 10/27/21 [History Last Taken Unknown] baclofen 20 mg tablet 20 mg PO TID PAIN 11/17/21 [History Last Taken Unknown] cholecalciferol (vitamin D3) 125 mcg (5,000 unit) tablet (Vitamin D3) 125 mcg PO DAILY SUPPLEMENT 11/17/21 [History Last Taken Unknown] coenzyme Q10 100 mg tablet 100 mg PO QHS SUPPLEMENT 11/17/21 [History Last Taken Unknown] montelukast 10 mg tablet (Singulair) 10 mg PO QHS LUNGS 11/17/21 [History Last Taken Unknown] omega-3 fatty acids 1,000 mg PO DAILY SUPPLEMENT 11/17/21 [History Last Taken Unknown] acetaminophen 500 mg tablet 500 mg PO TID PAIN 04/26/22 [History Last Taken Unknown] ammonium lactate 12 % lotion 1 applic topical PRN PRN SKIN 04/26/22 [History Last Taken Unknown] docusate sodium 100 mg capsule 100 mg PO BID PRN Constipation 04/26/22 [History Last Taken Unknown] furosemide 20 mg tablet 40 mg PO .COMPLEX water retention 04/26/22 [History Last Taken Unknown] insulin glargine 100 unit/mL (3 mL) subcutaneous pen (Lantus Solostar U-100 Insulin) 8 unit subcut DAILY DIABETES 04/26/22 [History Last Taken Unknown] levomefolate Ca 3 mg-B6 35 mg-meB12 2 mg-algal oil 90.314 mg capsule (Foltanx RF) 1 cap PO BID 04/26/22 [History Last Taken Unknown] magnesium oxide 500 mg PO DAILY 04/26/22 [History Last Taken Unknown] polyethylene glycol 3350 17 gram/dose oral powder 17 g PO DAILY 04/26/22 [History Last Taken Unknown] pregabalin 100 mg capsule (Lyrica) 200 mg PO TID PAIN 04/26/22 [History Last Taken Unknown] turmeric root extract 500 mg tablet 1,000 mg PO DAILY 04/26/22 [History Last Taken Unknown] vardenafil 20 mg tablet 20 mg PO DAILY PRN ERECTION 04/26/22 [History Last Taken Unknown] ciprofloxacin 0.3 %-dexamethasone 0.1 % ear drops,suspension (Ciprodex) 4 drp EACH EAR BID 10 days #7.5 mL 06/24/22 [Rx Last Taken Unknown] sulfamethoxazole 800 mg-trimethoprim 160 mg tablet (Bactrim DS) 2 tab PO BID #40 tabs 06/24/22 [Rx Last Taken Unknown] Allergy/AdvReac Type Severity Reaction Status Date / Time [id number] Reductase AdvReac Severe myalgia Verified 07/06/22 16:17 Inhibitor atorvastatin AdvReac Unknown Verified 07/06/22 16:17 Family History Father Diabetes Heart disease Hypertension Grandfather Diabetes Heart disease Grandmother Diabetes Mother Diabetes Hypertension Other Arthritis Surgical History Amputation toe H/O three vessel coronary artery bypass (~04/12/18) History of hand surgery Hx of cardiac catheterization Hx of elbow surgery Hx of left knee surgery Status post finger joint fusion Social History Smoking Status: Current every day smoker tobacco type: cigarettes and smokeless tobacco Smokeless tobacco user: chewing tobacco second hand exposure: Yes alcohol intake: current alcohol intake frequency: 0-2 drinks per day Alcohol type: beer substance use type: does not use additional social history: Does Take Aspirin Does not take Ibuprofen ROS ROS ED Constitutional Constitutional ED: Denies chills or fever(s) Eyes Eyes: Denies change in vision or discharge from eye(s) ENT ENT ED: Denies discharge from eye(s), rhinorrhea or sore throat Cardiovascular Cardiovascular: Reports chest pain; Denies palpitations Respiratory/Chest Respiratory/Chest: Reports dyspnea; Denies cough Gastrointestinal Gastrointestinal: Denies abdominal pain, nausea or vomiting Genitourinary Genitourinary ED: Denies dysuria Musculoskeletal Musculoskeletal: Denies back pain or extremity pain Integumentary Denies Abrasions or rash Neurologic Neurologic: Denies headache(s) or weakness Psychiatric Psychiatric: Denies anxiety or depression Allergic/Immunologic Allergic/Immunologic ED: Denies lip swelling or urticaria EXAM Physical Exam Const Vital Signs: 07/06/22 16:17 07/06/22 16:27 07/06/22 18:00 Temperature 98.1 F Temperature Source Temporal Pulse Rate 86 87 Respiratory Rate 15 16 Respiratory Effort Short of Breath Blood Pressure 145/75 H 141/78 H Blood Pressure Mean 98 99 Pulse Ox 98 93 Oxygen Delivery Method Room Air Room Air 07/06/22 19:15 07/06/22 20:05 07/06/22 20:24 Temperature Temperature Source Pulse Rate 84 85 84 Respiratory Rate 19 H 16 13 Respiratory Effort Blood Pressure 121/72 H 138/78 H Blood Pressure Mean 88 98 Pulse Ox 97 Oxygen Delivery Method Room Air 07/06/22 21:13 07/06/22 22:06 07/06/22 23:07 Temperature Temperature Source Pulse Rate 103 H 98 92 Respiratory Rate 16 16 16 Respiratory Effort Blood Pressure 127/73 H 138/76 H 152/79 H Blood Pressure Mean 91 96 103 Pulse Ox 97 99 98 Oxygen Delivery Method Room Air Room Air Room Air Positive well nourished and well developed General Appearance ED: well developed HEENT Reports normocephalic and head/scalp atraumatic Eyes PERRL and EOMs intact bilaterally Neck supple Chest Wall inspection of chest normal Chest Narrative: Reproducible tenderness along the left sternal border and left anterior ribs. No crepitus. No overlying skin change. Resp normal respiratory effort and clear to auscultation bilaterally Cardio regular rate and regular rhythm GI normal to inspection, nondistended, normoactive bowel sounds Palpation: soft Back/Spine no CVA tenderness Extremity normal to inspection Neuro oriented x3 and no sensory deficits noted Sensorium / Orientation: alert Motor Exam: strength 5/5 throughout Psych mental status grossly normal Skin no rashes or lesions noted Heart Score History: Moderately Suspicious ECG: Normal Age: >45 - <65 years Risk Factors: >/= 3 Risk Factors or History of CAD Troponin: </= Normal Limit Score: 4 MDM MDM MDM Narrative Medical decision making narrative: Patient placed on cardiac catheterization technologist. EKG, chest x-ray, lab work obtained. Lab Data Attestation: I reviewed the patient's lab results. Labs: Laboratory Results - last 24 hr 07/06/22 07/06/22 07/06/22 16:40 16:40 18:39 WBC 7.9 RBC 3.65 L Hgb 12.2 L Hct 38.1 L MCV 104.4 H MCH 33.4 H MCHC 32.0 RDW Std Deviation 51.1 H RDW Coeff of Mayi 13.2 Plt Count 247 MPV 10.5 Immature Gran % (Auto) 2.500 H Neut % (Auto) 66.0 Lymph % (Auto) 19.2 Dent % (Auto) 8.2 Eos % (Auto) 3.3 Baso % (Auto) 0.8 Absolute Neuts (auto) 5.2 Absolute Lymphs (auto) 1.51 Nucleated RBC % 0 Sodium 137 139 Potassium 5.7 H 5.7 H Chloride 104 107 Carbon Dioxide 27.0 27.0 Anion Gap 6 5 BUN 36 H 33 H Creatinine 1.69 H 1.46 H Estim Creat Clear Calc 47.39 54.86 Est GFR (MDRD) Af Amer 53 L 63 Est GFR (MDRD) Non-Af 44 L 52 L BUN/Creatinine Ratio 21.3 H 22.6 H Glucose 129 H 117 H Calcium 9.6 9.0 Troponin I High Sens 12 13 07/06/22 22:39 WBC RBC Hgb Hct MCV MCH MCHC RDW Std Deviation RDW Coeff of Mayi Plt Count MPV Immature Gran % (Auto) Neut % (Auto) Lymph % (Auto) Dent % (Auto) Eos % (Auto) Baso % (Auto) Absolute Neuts (auto) Absolute Lymphs (auto) Nucleated RBC % Sodium 142 Potassium 4.8 Chloride 108 H Carbon Dioxide 26.0 Anion Gap 8 BUN 28 H Creatinine 1.37 H Estim Creat Clear Calc 58.47 Est GFR (MDRD) Af Amer 68 Est GFR (MDRD) Non-Af 56 L BUN/Creatinine Ratio 20.4 H Glucose 148 H Calcium 8.9 Troponin I High Sens Radiography Chest X-Ray - ED: 1 View, Read by ED Physician and Chronic Changes Diagnostic Testing: Clinical Impression(s) from Imaging Studies Chest X-Ray 07/06/22 16:45 IMPRESSION: 1. Stable evidence of prior median sternotomy. There is borderline cardiomegaly. 2. No acute pulmonary disease. Electronically Signed: Hasmukh Mcgowan DO at 17:06 EDT Reading Location ID and State: [address] [place] [address] Tel [phone], Service support , EKG Initial EKG: Attestation: I personally reviewed and interpreted this EKG as follows: Interpretation: Sinus Rhythm (Sinus 88 with no acute ischemia. Prominent T waves are noted in V2 and V1. This is similar in appearance to prior EKG from November 2021.) Treatment and Re-Evaluation Narrative: CBC reveals a hemoglobin of 12.2. Chemistry studies significant for potassium of 5.7 with a creatinine of 1.69. Glucose is 129. One 2-hour repeat troponin is drawn a repeat BMP is also obtained. This confirms his potassium elevated at 5.7. Repeat troponin is negative. With patient having prominence to his T waves within a potassium of 5.7 he is given IV fluids, albuterol, insulin, dextrose. After 2 and half hours repeat BMP is obtained. Potassium is now normal at 4.8. Patient is comfortable with discharge to home. He is to follow with his primary care physician as well as his study manager. Discharge Plan Triage Chief Complaint: Chest Pain ED Provider: Dyana Mcwilliams Dx/Rx/DC Orders Clinical Impression: Chest pain, Hyperkalemia Instructions: ED Chest Pain, Noncardiac, ED Hyperkalemia Prescriptions: No Action amlodipine 10 mg tablet 10 mg PO DAILY albuterol sulfate [ProAir HFA] 90 mcg/actuation HFA aerosol inhaler 2 puff INHALATION Q4H PRN (Reason: Sob &/Or Wheezing) cetirizine 10 mg tablet 10 mg PO DAILY simvastatin 10 mg tablet 10 mg PO QHS metformin 500 mg tablet 500 mg PO BID pregabalin [Lyrica] 100 mg capsule 200 mg PO TID turmeric root extract 500 mg tablet 1,000 mg PO DAILY polyethylene glycol 3350 17 gram/dose powder 17 g PO DAILY vardenafil 20 mg tablet 20 mg PO DAILY PRN (Reason: ERECTION) docusate sodium 100 mg capsule 100 mg PO BID PRN (Reason: Constipation) [id number]-algal oil [Foltanx RF] 3 mg-35 mg-2 mg -90.314 mg capsule 1 cap PO BID furosemide 20 mg tablet 40 mg PO .COMPLEX Rx Instructions: 40 mg orally; 40mg in the morning, and 20mg in the afternoon. magnesium oxide 250 mg magnesium tablet 500 mg PO DAILY nortriptyline 50 MG capsule 50 mg PO QHS ammonium lactate 12 % lotion 1 applic topical PRN PRN (Reason: SKIN) desonide 1 APPLIC cream 1 applic TOPICAL BID PRN (Reason: Dry Skin) ketoconazole 15 GM cream 1 applic TOPICAL DAILY PRN (Reason: Dry Skin) Label Comments: TO FACE DAILY insulin lispro 100 UNIT/ML insulin pen See Protocol SQ TIDCM Protocol: 6. Sliding Scale Insulin Custom Condition: mg/dl range Dose/Route: Number of Units Protocol Text: Custom Sliding Scale Label Comments: 12-20 UNITS Rx Instructions: sliding scale biotin 1 MG tablet 1 mg PO DAILY metoprolol tartrate 25 mg tablet 12.5 mg PO BID MDD . aspirin 81 mg tablet,delayed release (DR/EC) 162 mg PO DAILY MDD . cyanocobalamin (vitamin B-12) 1,000 MCG/ML solution 1,000 mcg IM Q30D lisinopril 5 MG tablet 5 mg PO QDAY baclofen 20 mg Tablet 20 mg PO TID montelukast [Singulair] 10 mg Tablet 10 mg PO QHS Fish Oil Capsule 1,000 mg PO DAILY cholecalciferol (vitamin D3) [Vitamin D3] 125 mcg (5,000 unit) Tablet 125 mcg PO DAILY coenzyme Q10 100 mg Tablet 100 mg PO QHS Lantus Solostar U-100 Insulin 100 unit/mL (3 mL) insulin pen 8 unit SUBCUT DAILY acetaminophen 500 mg tablet 500 mg PO TID ciprofloxacin-dexamethasone [Ciprodex] 0.3-0.1 % drops,suspension 4 drp EACH EAR BID 10 Days Qty: 7.5 0RF sulfamethoxazole-trimethoprim [Bactrim DS] 800-160 mg tablet 2 tab PO BID Qty: 40 0RF Primary Care Provider: Avery Escalante Referrals: Avery Escalante DO [Primary Care Provider] - 1-2 Weeks Mat Ring MD [Med Staff - Active Staff] - As Needed Disposition Disposition: Home, Self Care
[2022-07-06] MEDS: Aspirin 81 MG TAB.CHEW 162 MG PO (16:41)
--- NOTE | 2022-07-06 16:45 | RAD_ITS ---
STUDY: X-RAY CHEST REASON FOR EXAM: Male, 62 years old. Chest pain for 2 to 3 days. History of triple bypass. EKG changes noted by primary care physician. TECHNIQUE: Single AP portable view of the chest. COMPARISON: 12/04/2021. FINDINGS: Limited inspiratory effort without acute infiltrate or mass. There is no demonstrated pleural abnormality. Sternal cerclage wires are present from a prior sternotomy. The heart is borderline enlarged. Normal mediastinum and kaci. Normal visualized pulmonary arteries. There is atherosclerotic calcification of the aortic arch with tortuosity. The thoracic spine is obscured by the mediastinum. Normal visualized ribs, clavicles, and shoulders. There is no demonstrated abnormality of the visualized soft tissue structures of the upper abdomen. RAD/Chest 1 View (Portable) IMPRESSION: 1. Stable evidence of prior median sternotomy. There is borderline cardiomegaly. 2. No acute pulmonary disease. Electronically Signed: Hasmukh Mcgowan DO at 17:06 EDT ,
[2022-07-06 16:49] LABS: Absolute Lymphocyte Count 1.51 X10^3/uL (0.83-4.51); Absolute Neutrophil Count 5.2 X10^3/uL (2.0-7.7); Basophil# 0.06 X10^3/uL; Basophil% 0.8 % (0-1); Eosinophil# 0.26 X10^3/uL; Eosinophils% 3.3 % (0-5); Hematocrit 38.1 % (40-54); Hemoglobin 12.2 g/dL (13.0-16.5); Lymphocyte # 1.51 X10^3/ul (0.83-4.51); Lymphocyte % 19.2 % (19-41); Mean Corpuscular Hgb 33.4 pg (27.0-32.0); Mean Corpuscular Volume 104.4 fL (80-94); Mean Platelet Vol. 10.5 fl (6.2-12.0); Monocyte# 0.65 X10^3/uL; Monocyte% 8.2 % (0-10); NRBC Flagged by Analyzer 0 % (0-5); Platelet Count 247 K/mm3 (150-450); RBC Distribution Width CV 13.2 % (11.6-14.6); RBC Distribution Width SD 51.1 fl (35.1-43.9); Red Blood Count 3.65 M/mm3 (4.6-6.2); White Blood Count 7.9 K/mm3 (4.4-11.0)
[2022-07-06 17:08] LABS: Anion Gap 6 (5-15); BUN 36 mg/dL (7-18); BUN/Creat Ratio 21.3 RATIO (10-20); Calcium,Total 9.6 mg/dL (8.5-10.1); Chloride 104 mmol/L (98-107); Creatinine, Serum 1.69 mg/dL (0.70-1.30); EST Glomerular Filtration Rate 44 mL/min (>60); Est Glom Filt Rate - Afr Amer 53 mL/min (>60); Estimated Creatinine Clearance 47.39 ml/min; Glucose 129 mg/dL (74-106); Potassium 5.7 mmol/L (3.5-5.1); Sodium Level 137 mmol/L (136-145); Troponin-I HS (w/2H Reflex) 12 pg/mL (3.0-78.0)
[2022-07-06 18:46] LABS: Reflex Troponin-HS? (from REC) Y
[2022-07-06 19:12] LABS: Anion Gap 5 (5-15); BUN 33 mg/dL (7-18); BUN/Creat Ratio 22.6 RATIO (10-20); Chloride 107 mmol/L (98-107); Creatinine, Serum 1.46 mg/dL (0.70-1.30); EST Glomerular Filtration Rate 52 mL/min (>60); Est Glom Filt Rate - Afr Amer 63 mL/min (>60); Estimated Creatinine Clearance 54.86 ml/min; Glucose 117 mg/dL (74-106); Potassium 5.7 mmol/L (3.5-5.1); Sodium Level 139 mmol/L (136-145); Troponin-I HS 13 pg/mL (3.0-78.0)
[2022-07-06] MEDS: Insulin Lispro 10 UNIT in Syringe 0 ML 6 UNIT IV (20:18)
[2022-07-06] MEDS: Dextrose 50%-Water 25 GM/50 ML DISP.SYRIN IV (20:18)
[2022-07-06] MEDS: Albuterol *CONC* 2.5mg/0.5mL VIAL.NEB. 10 MG INHALATION (20:22)
[2022-07-06 23:15] LABS: Anion Gap 8 (5-15); BUN 28 mg/dL (7-18); BUN/Creat Ratio 20.4 RATIO (10-20); Calcium,Total 8.9 mg/dL (8.5-10.1); Chloride 108 mmol/L (98-107); Creatinine, Serum 1.37 mg/dL (0.70-1.30); EST Glomerular Filtration Rate 56 mL/min (>60); Est Glom Filt Rate - Afr Amer 68 mL/min (>60); Estimated Creatinine Clearance 58.47 ml/min; Glucose 148 mg/dL (74-106); Potassium 4.8 mmol/L (3.5-5.1); Sodium Level 142 mmol/L (136-145)
== END 2022-07-06 23:36 | disposition home or self-care (01) ==
PROVIDERS: Emergency Provider Emergency Medicine; PCP Student in an Organized Health Care Education/Training Program; Visit Provider Emergency Medicine
DX: R07.9 Chest pain, unspecified (principal); E11.40 Type 2 diabetes mellitus with diabetic neuropathy, unspecified; Z79.4 Long term (current) use of insulin; E87.5 Hyperkalemia; I10 Essential (primary) hypertension; I25.10 Atherosclerotic heart disease of native coronary artery without angina pectoris; E78.5 Hyperlipidemia, unspecified; F17.210 Nicotine dependence, cigarettes, uncomplicated; F17.220 Nicotine dependence, chewing tobacco, uncomplicated; I25.2 Old myocardial infarction; Z79.82 Long term (current) use of aspirin; Z79.899 Other long term (current) drug therapy; Z86.73 Personal history of transient ischemic attack (TIA), and cerebral infarction without residual deficits; Z95.1 Presence of aortocoronary bypass graft
CPT/HCPCS: 71045; 80048; 84484; 85025; 93005; 96361; 96374; 99284; J7030; A4216

== ENCOUNTER 2022-07-21 10:09 | Inpatient (IN) | payer MEDICAID, SELFPAY ==
[2022-07-21] VITALS (16 sets, daily range): BP systolic 111–145; BP diastolic 69–87; PULSE 94–109; RESP 17–32; TEMP 36.6–37.3; O2SAT 81–98; BMI 30.7; BMI 32.1
--- NOTE | 2022-07-21 10:28 | EX.ED.DYSGE1 ---
HPI History of Present Illness Chief Complaint: Shortness of Breath Detail of Chief Complaint: Short of breath and generalized weakness Informant: patient and spouse/S.O. Narrative Narrative: Patient presents emergency department complaint of shortness of breath that started about 3 days ago. Patient just generally feels weak. Complains of exertional dyspnea. Patient states he felt similarly about a week ago and was seen in the emergency department and apparently had hypokalemia at that time. Patient has had some intermittent chest discomfort. He complains of a headache. Patient has had a mild cough that is nonproductive. He denies fever. He has had the COVID-vaccine. Patient has history of coronary artery disease. Patient not on blood thinners. He denies recent travel or surgery. 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 Callous ulcer with fat layer exposed Cardiology follow-up encounter Cellulitis lft foot failed outpatient tx Cerebrovascular disease Chewing tobacco nicotine dependence Chronic skin ulcer with fat layer exposed Chronic ulcer of left foot with fat layer exposed CVA (cerebral vascular accident) Diabetes mellitus type 2 with complications Diabetic foot ulcer associated with type 2 diabetes mellitus Discoloration of skin of finger Environmental allergies Essential (primary) hypertension Finger osteomyelitis, right Frostbite of finger of right hand H/O stroke associated with blood clotting tendency Hammertoe of left foot Hammertoe of right foot History of frostbite HLD (hyperlipidemia) Hx of cardiovascular stress test Hx of echocardiogram Hx of edema Hypertension Insulin dependent diabetes mellitus Leg cramps Leg pain Neuropathy Non-compliance Non-healing surgical wound Nonhealing nonsurgical wound with fat layer exposed NSTEMI (non-ST elevated myocardial infarction) (~03/2018) Old myocardial infarction Other specified peripheral vascular diseases Segmental and somatic dysfunction of cervical region Segmental and somatic dysfunction of lumbar region Segmental and somatic dysfunction of thoracic region Skin ulcer of finger with fat layer exposed Syncope Thoracic neuritis Ulcer of right foot with fat layer exposed Xerosis cutis Xerosis of skin Home Medications biotin 1 mg tablet 1 mg PO DAILY general health 04/01/18 [History Last Taken 03/26/20] desonide 0.05 % topical cream 1 applic topical BID PRN Dry Skin 04/01/18 [History Last Taken 03/30/18] insulin lispro 100 unit/mL subcutaneous pen See Protocol SQ TIDCM diabetes 04/01/18 [History Last Taken 03/26/20] ketoconazole 2 % topical cream 1 applic topical DAILY PRN Dry Skin 04/01/18 [History Last Taken 03/30/18] metoprolol tartrate 25 mg tablet 12.5 mg PO BID heart 07/19/18 [History Last Taken 12/01/21] albuterol sulfate 90 mcg/actuation aerosol inhaler (ProAir HFA) 2 puff inhalation Q4H PRN Sob &/Or Wheezing 08/13/19 [History Last Taken Unknown] amlodipine 10 mg tablet 10 mg PO DAILY blood pressure 08/13/19 [History Last Taken 12/01/21] cetirizine 10 mg tablet 10 mg PO DAILY allergies 08/13/19 [History Last Taken 03/26/20] simvastatin 10 mg tablet 10 mg PO QHS cholesterol 08/13/19 [History Last Taken 03/25/20] cyanocobalamin (vitamin B-12) 1,000 mcg/mL injection solution 1,000 mcg IM Q30D supplement 08/22/19 [History Last Taken 03/26/20] aspirin 81 mg tablet,delayed release 162 mg PO DAILY blood flow 10/12/19 [History Last Taken 11/25/21] lisinopril 5 mg tablet 5 mg PO QDAY blood pressure 03/26/20 [History Last Taken 12/01/21] metformin 500 mg tablet 500 mg PO BID DIABETES 10/27/21 [History Last Taken Unknown] baclofen 20 mg tablet 20 mg PO TID PAIN 11/17/21 [History Last Taken Unknown] cholecalciferol (vitamin D3) 125 mcg (5,000 unit) tablet (Vitamin D3) 125 mcg PO DAILY SUPPLEMENT 11/17/21 [History Last Taken Unknown] coenzyme Q10 100 mg tablet 100 mg PO QHS SUPPLEMENT 11/17/21 [History Last Taken Unknown] montelukast 10 mg tablet (Singulair) 10 mg PO QHS LUNGS 11/17/21 [History Last Taken Unknown] omega-3 fatty acids 1,000 mg PO DAILY SUPPLEMENT 11/17/21 [History Last Taken Unknown] acetaminophen 500 mg tablet 500 mg PO TID PAIN 04/26/22 [History Last Taken Unknown] ammonium lactate 12 % lotion 1 applic topical PRN PRN SKIN 04/26/22 [History Last Taken Unknown] docusate sodium 100 mg capsule 100 mg PO BID PRN Constipation 04/26/22 [History Last Taken Unknown] levomefolate Ca 3 mg-B6 35 mg-meB12 2 mg-algal oil 90.314 mg capsule (Foltanx RF) 1 cap PO BID 04/26/22 [History Last Taken Unknown] magnesium oxide 500 mg PO DAILY 04/26/22 [History Last Taken Unknown] pregabalin 100 mg capsule (Lyrica) 200 mg PO TID PAIN 04/26/22 [History Last Taken Unknown] turmeric root extract 500 mg tablet 1,000 mg PO DAILY 04/26/22 [History Last Taken Unknown] vardenafil 20 mg tablet 20 mg PO DAILY PRN ERECTION 04/26/22 [History Last Taken Unknown] Allergy/AdvReac Type Severity Reaction Status Date / Time Aadmhpw-DSA-DaO Reductase AdvReac Severe myalgia Verified 07/21/22 10:10 Inhibitor atorvastatin AdvReac Unknown Verified 07/21/22 10:10 Family History Father Diabetes Heart disease Hypertension Grandfather Diabetes Heart disease Grandmother Diabetes Mother Diabetes Hypertension Other Arthritis Surgical History Amputation toe H/O three vessel coronary artery bypass (~04/12/18) History of hand surgery Hx of cardiac catheterization Hx of elbow surgery Hx of left knee surgery Status post finger joint fusion Social History Smoking Status: Current every day smoker tobacco type: cigarettes and smokeless tobacco Smokeless tobacco user: chewing tobacco second hand exposure: Yes alcohol intake: current alcohol intake frequency: 0-2 drinks per day Alcohol type: beer substance use type: does not use additional social history: Does Take Aspirin Does not take Ibuprofen ROS ROS ED Review of Systems ROS Unobtainable: other Constitutional Constitutional ED: Reports lethargy; Denies chills, fever(s), sweats or weight loss Eyes Eyes: Denies blurry vision, change in vision or diplopia ENT ENT ED: Denies rhinorrhea or sore throat Cardiovascular Cardiovascular: Reports chest pain; Denies orthopnea or racing heartbeat Respiratory/Chest Respiratory/Chest: Reports cough, dyspnea and dyspnea on exertion; Denies orthopnea or sputum Gastrointestinal Gastrointestinal: Denies abdominal pain, diarrhea, nausea or vomiting Genitourinary Genitourinary ED: Denies dysuria, hematuria or urinary frequency Musculoskeletal Musculoskeletal: Denies arthralgias, back pain, myalgias or neck pain Integumentary Denies abscess, Abrasions or rash Neurologic Neurologic: Reports headache(s); Denies weakness Psychiatric Psychiatric: Denies anxiety, depression or suicidal thoughts Endocrine Endocrinology: Denies polydipsia, polyphagia or polyuria Hematologic/Lymphatic Hematologic/Lymphatic: Denies easy bleeding, easy bruising or lymphadenopathy Allergic/Immunologic Allergic/Immunologic ED: Denies mouth swelling, tongue swelling or urticaria EXAM Physical Exam Const Vital Signs: 07/21/22 10:10 07/21/22 10:47 07/21/22 11:09 Temperature 98.2 F Temperature Source Temporal Pulse Rate 109 H 108 H Respiratory Rate 20 H 28 H Respiratory Effort Short of Breath Blood Pressure 123/77 H 111/72 Blood Pressure Mean 92 85 Pulse Ox 98 81 Oxygen Delivery Method Room Air Room Air Oxygen Flow Rate (L/min) 07/21/22 11:17 07/21/22 12:15 Temperature 98.5 F Temperature Source Temporal Pulse Rate 109 H Respiratory Rate 32 H Respiratory Effort Blood Pressure 145/87 H Blood Pressure Mean 106 Pulse Ox 94 91 Oxygen Delivery Method Nasal Cannula Nasal Cannula Oxygen Flow Rate (L/min) 3 3 Positive well nourished and well developed General Appearance ED: well developed and NAD HEENT Reports TM's clear and moist mucous membranes normocephalic and atraumatic; Negative for trauma or tenderness Tympanic Membrane ED: Yes TM's clear Eyes PERRL and EOMs intact bilaterally General Eye ED: Negative for pale conjunctiva or scleral icterus Neck no lymphadenopathy, supple and no JVD General: Negative for tenderness Chest Wall inspection of chest normal and palpation of chest normal Chest: Negative for tenderness Resp normal respiratory effort and clear to auscultation bilaterally Resp Narrative: Few rales left base, mild tachypnea, no excess or muscle use or retractions Effort and Inspection: Negative for respiratory distress or pain with movement Auscultation: rales; Negative for rhonchi, wheezes or diminished lung sounds Cardio regular rate, regular rhythm, S1 normal heart sound, S2 normal heart sound and no murmurs Peripheral Pulses: pulses 2+ throughout GI normal to inspection, nondistended, normoactive bowel sounds, soft to palpation, non-tender, non-distended and no masses Back/Spine no CVA tenderness and no thoracic nor lumbar tenderness Extremity normal to inspection General Extremety ED: Negative for edema General Extremity: Negative for edema Neuro oriented x3, CN's II-XII intact bilaterally, no sensory deficits noted and gait normal Sensorium / Orientation: awake, alert, oriented to person, oriented to place and oriented to time Motor Exam: strength 5/5 throughout and strength abnormal Psych mental status grossly normal Skin no rashes or lesions noted and no wounds MDM MDM MDM Narrative Medical decision making narrative: Established on arrival. Patient was noted to have a slight elevated white count of 13.8. D-dimer was elevated 1.1. Troponin was elevated 3531. BNP was elevated over 1500. CTA of the chest was negative for PE but did show some small pleural effusions with some possible infiltrates in the periphery may be consistent with COVID. His rapid COVID test was negative. I did send off a COVID PCR. Patient was hypoxic into the emergency department was placed on 3 L nasal cannula O2. I did order Lasix 80 mg IV. Patient given the elevated troponin was started on heparin IV drip for suspected non-STEMI. Lab Data Attestation: I reviewed the patient's lab results. Labs: Laboratory Results - last 24 hr 07/21/22 07/21/22 07/21/22 10:40 10:40 10:40 WBC 13.8 H RBC 3.21 L Hgb 10.9 L Hct 35.0 L MCV 109.0 H MCH 34.0 H MCHC 31.1 L RDW Std Deviation 56.7 H RDW Coeff of Mayi 14.6 Plt Count 211 MPV 11.0 Immature Gran % (Auto) 1.900 H Neut % (Auto) 82.4 H Lymph % (Auto) 6.2 L Craig % (Auto) 9.1 Eos % (Auto) 0.0 Baso % (Auto) 0.4 Absolute Neuts (auto) 11.4 H Absolute Lymphs (auto) 0.86 Nucleated RBC % 0 D-Dimer Quant (PE/DVT) 1.10 H* Sodium 136 Potassium 4.8 Chloride 103 Carbon Dioxide 25.0 Anion Gap 8 BUN 22 H Creatinine 1.43 H Estim Creat Clear Calc 57.78 Est GFR (MDRD) Af Amer 65 Est GFR (MDRD) Non-Af 53 L BUN/Creatinine Ratio 15.4 Glucose 301 H Calcium 8.9 Total Bilirubin 1.60 H AST 53 H ALT 29 Alkaline Phosphatase 63 Troponin I High Sens 3531 H* B-Natriuretic Peptide Total Protein 7.8 Albumin 3.2 Globulin 4.6 H Albumin/Globulin Ratio 0.7 L 07/21/22 10:40 WBC RBC Hgb Hct MCV MCH MCHC RDW Std Deviation RDW Coeff of Mayi Plt Count MPV Immature Gran % (Auto) Neut % (Auto) Lymph % (Auto) Craig % (Auto) Eos % (Auto) Baso % (Auto) Absolute Neuts (auto) Absolute Lymphs (auto) Nucleated RBC % D-Dimer Quant (PE/DVT) Sodium Potassium Chloride Carbon Dioxide Anion Gap BUN Creatinine Estim Creat Clear Calc Est GFR (MDRD) Af Amer Est GFR (MDRD) Non-Af BUN/Creatinine Ratio Glucose Calcium Total Bilirubin AST ALT Alkaline Phosphatase Troponin I High Sens B-Natriuretic Peptide 1595.8 H Total Protein Albumin Globulin Albumin/Globulin Ratio Radiography Diagnostic Testing: Clinical Impression(s) from Imaging Studies Chest X-Ray 07/21/22 10:50 IMPRESSION: Patchy infiltrates at the lung bases more prominent on the left side. Follow-up is recommended. Electronically Signed: Chapo Viramontes MD at 11:17 EDT , Chest CTA 07/21/22 11:37 IMPRESSION: Small bilateral pleural effusions with patchy infiltrates as described preferentially in the peripheral distribution. This is suggestive of Covid pneumonitis. Electronically Signed: Chapo Viramontes MD at 12:07 EDT , 1 view chest x-ray obtained interpreted by myself as increased markings both lower lobes. Radiology was in agreement. EKG Initial EKG: Attestation: I personally reviewed and interpreted this EKG as follows: Comments: Sinus rhythm with a ventricular rate of [address] changes and old septal infarct noted. Critical Care Time Critical care time (excluding procedures): 30-74 minutes, Discussing w/Patient &/or Family/Brainer, Discussing w/Consultants, Arranging Admission or Transfer, Performing Direct Patient Care at Bedside and - (30) Discharge Plan Triage Chief Complaint: Shortness of Breath ED Provider: Kirk Cline Dx/Rx/DC Orders Clinical Impression: Acute dyspnea, Hypoxemia, CHF (congestive heart failure), Non-ST elevated myocardial infarction Prescriptions: No Action amlodipine 10 mg tablet 10 mg PO DAILY albuterol sulfate [ProAir HFA] 90 mcg/actuation HFA aerosol inhaler 2 puff INHALATION Q4H PRN (Reason: Sob &/Or Wheezing) cetirizine 10 mg tablet 10 mg PO DAILY simvastatin 10 mg tablet 10 mg PO QHS metformin 500 mg tablet 500 mg PO BID pregabalin [Lyrica] 100 mg capsule 200 mg PO TID turmeric root extract 500 mg tablet 1,000 mg PO DAILY vardenafil 20 mg tablet 20 mg PO DAILY PRN (Reason: ERECTION) docusate sodium 100 mg capsule 100 mg PO BID PRN (Reason: Constipation) [id number]-[id number] oil [Foltanx RF] 3 mg-35 mg-2 mg -90.314 mg capsule 1 cap PO BID magnesium oxide 250 mg magnesium tablet 500 mg PO DAILY ammonium lactate 12 % lotion 1 applic topical PRN PRN (Reason: SKIN) desonide 1 APPLIC cream 1 applic TOPICAL BID PRN (Reason: Dry Skin) ketoconazole 15 GM cream 1 applic TOPICAL DAILY PRN (Reason: Dry Skin) Label Comments: TO FACE DAILY insulin lispro 100 UNIT/ML insulin pen See Protocol SQ TIDCM Protocol: 6. Sliding Scale Insulin Custom Condition: mg/dl range Dose/Route: Number of Units Protocol Text: Custom Sliding Scale Label Comments: 12-20 UNITS Rx Instructions: sliding scale biotin 1 MG tablet 1 mg PO DAILY metoprolol tartrate 25 mg tablet 12.5 mg PO BID MDD . aspirin 81 mg tablet,delayed release (DR/EC) 162 mg PO DAILY MDD . cyanocobalamin (vitamin B-12) 1,000 MCG/ML solution 1,000 mcg IM Q30D lisinopril 5 MG tablet 5 mg PO QDAY baclofen 20 mg Tablet 20 mg PO TID montelukast [Singulair] 10 mg Tablet 10 mg PO QHS Fish Oil Capsule 1,000 mg PO DAILY cholecalciferol (vitamin D3) [Vitamin D3] 125 mcg (5,000 unit) Tablet 125 mcg PO DAILY coenzyme Q10 100 mg Tablet 100 mg PO QHS acetaminophen 500 mg tablet 500 mg PO TID Primary Care Provider: Avery Escalante Referrals: Avery Escalante DO [Primary Care Provider] - Disposition Disposition: Acute Care Hospital [facility]
--- NOTE | 2022-07-21 10:50 | RAD_ITS ---
STUDY: X-RAY CHEST REASON FOR EXAM: Male, 62 years old. Dyspnea TECHNIQUE: Single AP portable view of the chest. COMPARISON: Comparison is made with prior study dated 07/06/2022. FINDINGS: Patchy infiltrates at the lung bases slightly worse on the left side. There is no demonstrated pleural abnormality. Sternal cerclage wires and vascular clips are present from a prior sternotomy and coronary artery bypass graft procedure (CABG). Normal mediastinum and kaci. Normal visualized pulmonary arteries. Normal visualized aortic arch and descending thoracic aorta. Normal visualized thoracic spine. There is degenerative osteoarthritis of the bilateral shoulders. There is no demonstrated abnormality of the visualized soft tissue structures of the upper abdomen. RAD/Chest 1 View (Portable) IMPRESSION: Patchy infiltrates at the lung bases more prominent on the left side. Follow-up is recommended. Electronically Signed: Chapo Viramontes MD at 11:17 EDT ,
[2022-07-21 11:02] LABS: Absolute Lymphocyte Count 0.86 X10^3/uL (0.83-4.51); Absolute Neutrophil Count 11.4 X10^3/uL (2.0-7.7); Basophil# 0.05 X10^3/uL; Basophil% 0.4 % (0-1); Hemoglobin 10.9 g/dL (13.0-16.5); Lymphocyte # 0.86 X10^3/ul (0.83-4.51); Lymphocyte % 6.2 % (19-41); Mean Corp Hgb Conc 31.1 g/dL (32-36); Monocyte# 1.26 X10^3/uL; Monocyte% 9.1 % (0-10); NRBC Flagged by Analyzer 0 % (0-5); Neutrophil # 11.35 X10^3/uL (2.7-7.7); Neutrophil % 82.4 % (47-70); Platelet Count 211 K/mm3 (150-450); RBC Distribution Width CV 14.6 % (11.6-14.6); RBC Distribution Width SD 56.7 fl (35.1-43.9); Red Blood Count 3.21 M/mm3 (4.6-6.2); White Blood Count 13.8 K/mm3 (4.4-11.0)
[2022-07-21 11:17] LABS: ALB/GLOB Ratio 0.7 RATIO (0.9-2.4); AST(SGOT) 53 U/L (15-37); Alanine Aminotransfer ALT/SGPT 29 U/L (16-61); Albumin, Serum 3.2 g/dL (3.2-5.0); Alkaline Phosphatase 63 U/L (45-117); Anion Gap 8 (5-15); BUN 22 mg/dL (7-18); BUN/Creat Ratio 15.4 RATIO (10-20); Calcium,Total 8.9 mg/dL (8.5-10.1); Chloride 103 mmol/L (98-107); Creatinine, Serum 1.43 mg/dL (0.70-1.30); EST Glomerular Filtration Rate 53 mL/min (>60); Est Glom Filt Rate - Afr Amer 65 mL/min (>60); Estimated Creatinine Clearance 57.78 ml/min; Globulin 4.6 g/dL (2.2-4.2); Glucose 301 mg/dL (74-106); Potassium 4.8 mmol/L (3.5-5.1); Protein, Total 7.8 g/dL (6.4-8.2); Sodium Level 136 mmol/L (136-145); Troponin-I HS 3531 pg/mL (3.0-78.0)
[2022-07-21 11:28] LABS: BNP,B-Type NATRIURETIC PEPTIDE 1595.8 pg/mL (0-100)
[2022-07-21] MEDS: Furosemide 100 MG/10 ML Vial 80 MG IV (11:31)
--- NOTE | 2022-07-21 11:37 | CT_ITS ---
STUDY: CTA CHEST REASON FOR EXAM: Male, 62 years old. Dyspnea, chest pain RADIATION DOSAGE (If Supplied By Facility): CTDIvol = ( 13.85 ) mGy, DLP = ( 548.06 ) mGycm TECHNIQUE: The examination was performed with the intravenous administration of IV 100mL [id number]-[id number]. Post-processing of the angiographic images was performed, with multiplanar reformation and 3D reconstruction. Individualized dose optimization techniques were used for this CT. COMPARISON: Comparison is made with prior study dated 04/01/2018. FINDINGS: Normal enhancement of the main pulmonary artery and right and left pulmonary arteries. Normal enhancement of the bilateral peripheral pulmonary arteries. There is no demonstrated pulmonary embolism. There is atherosclerotic calcification of the aortic arch with tortuosity. There is no demonstrated aortic dissection. There are calcifications of the coronary arteries. Sternal cerclage wires and vascular clips are present from a prior sternotomy and coronary artery bypass graft procedure (CABG). There are visualized mediastinal lymph nodes, which are within normal size limits, and with normal morphology. Normal hilar regions. Normal visualized trachea and bronchi. The lungs are well expanded. Small bilateral pleural effusions. Patchy infiltrates are seen in the peripheral aspect of the right upper and right lower lobes as well is in the left upper lobe. Mild increased markings at the left lung base. Findings suggest possible pneumonitis associated with Covid. Normal chest wall structures. There are mild degenerative changes of thoracic spine. Atherosclerosis of the abdominal aorta and the major visceral branches. Small hiatal hernia. CT/CTA Chest W/WO Contrast IMPRESSION: Small bilateral pleural effusions with patchy infiltrates as described preferentially in the peripheral distribution. This is suggestive of Covid pneumonitis. Electronically Signed: Chapo Viramontes MD at 12:07 EDT ,
[2022-07-21 13:01] LABS: International Normalized Ratio 1.2; Prothrombin Time (Protime)PT. 14.4 SECONDS (11.7-14.9)
[2022-07-21] MEDS: Heparin Injection (Vial) 5,000 UNIT/ML VIAL 7500 UNIT IV (13:03)
[2022-07-21] MEDS: HEPARIN/D5w 25,000 UNITS 25,000 UNITS/250 ML IV.SOLN. 14 UNITS CONT INF (13:03)
[2022-07-21] MEDS: Aspirin 81 MG TAB.CHEW 324 MG PO (13:03)
--- NOTE | 2022-07-21 13:06 | NURSING ---
DR NATALI CANCINO
--- NOTE | 2022-07-21 13:12 | NURSING ---
GIL HURST DYSPNEA, HYPOXIA, CHF, NSTEMI
[2022-07-21 13:13] LABS: Bacteria 0 SEEN /hpf (None Seen); Mucous, Urine 0 SEEN /hpf (<or=2+); Red Blood Cells-Urine 0 SEEN /hpf (0-5); Squamous Epithelial Cells - UA 0 SEEN /hpf (0-5); White Blood Cells 0 SEEN /hpf (0-5)
[2022-07-21 13:19] LABS: Color, Urine Yellow (Yellow); Glucose, Dipstick 100 mg/dl (Normal); Ketone-Dipstick Negative (Negative); Leukocyte Esterase-Dipstick Negative /ul (Negative); Nitrite-Dipstick Negative (Negative); Occult Blood-Urine Negative /ul (Negative); Protein-Dipstick Negative (Negative); Urine Bilirubin Dipstick Negative (Negative); Urine Clarity Clear (Clear); Urine Urobilinogen Normal (Normal)
--- NOTE | 2022-07-21 13:32 | HP.PCM.HOS_ITS ---
HPI - General General Date of Admission: 07/21/22 Date of Service: 07/21/22 Chief Complaint: Shortness of breath HPI Narrative RICK GEORGE, is a 62 M who presented to the emergency department was [facility] on 07/21/2022 with a chief complaint of shortness of breath. The patient reports that he was here on 07/06/2022 with chest pain. His cardiac enzymes were cycled at that time and found to be 12 and 13 respectively. His BMP showed some mild hyperkalemia for which she was treated and repeat potassium was 4.8. 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 Here he presents to the emergency department today complaining of shortness of breath, nausea without vomiting, malaise, fatigue, dry cough, decreased appetite, orthopnea, and generalized weakness. He denies any fever or chills. He does indicate he had his fourth COVID booster a week ago. He states all of his symptoms started on Tuesday and he has declined since that point time. P.o. intake has declined in the last 48 hours. And his primary complaint was just feeling poor in general along with his ongoing shortness of breath. He is not oxygen dependent at baseline. He has a history of hypertension, hyperlipidemia, and diabetes with previous CABG in 2018 at [facility] with MACK to LAD and saphenous vein graft to OM and left PDA. Vital signs on presentation showed temperature of 98.2 and has been afebrile since presentation, heart rate of 104-109, blood pressure 123/77, respiratory rate 20-28, and oxygen saturations were 81% on room air and improved to 94% on 3 L nasal cannula. His CBC showed a mild leukocytosis with a white count of 13.8 and a left shift of 82.4% neutrophilia. He is a chronic stable anemia and his platelet counts normal. Coags show normal INR. D-dimer was found to be elevated at 1.10. Chemistry panel shows normal electrolytes with an elevated serum creatinine at 1.43 (baseline serum creatinine appears to be between 0.8 and 1.) His glucose was 301 on presentation and his AST was 53 with a normal ALT. Troponin was 3531. BNP was 1595.8. His UA was unremarkable except for glucose urea. His rapid COVID test was negative. Chest x-ray showed patchy infiltrates left greater than right and a CTA was obtained given his elevated D- dimer showing small bilateral pleural effusion with patchy infiltrates preferentially in the peripheral distribution. Given his symptoms a COVID PCR was ordered and pending on admission. In the emergency department he was treated with a heparin drip for his NSTEMI and treated with IV Lasix x1 dose. [facility] Medical History Acute congestive heart failure Alcohol use Arthritis Atherosclerotic heart disease of [place] coronary artery without angina pectoris Back pain Boutonniere deformity of finger of right hand Callous ulcer with fat layer exposed Cardiology follow-up encounter Cellulitis lft foot failed outpatient tx Cerebrovascular disease Chewing tobacco nicotine dependence Chronic skin ulcer with fat layer exposed Chronic ulcer of left foot with fat layer exposed CVA (cerebral vascular accident) Diabetes mellitus type 2 with complications Diabetic foot ulcer associated with type 2 diabetes mellitus Discoloration of skin of finger Environmental allergies Essential (primary) hypertension Finger osteomyelitis, right Frostbite of finger of right hand H/O stroke associated with blood clotting tendency Hammertoe of left foot Hammertoe of right foot History of frostbite HLD (hyperlipidemia) Hx of cardiovascular stress test Hx of echocardiogram Hx of edema Hypertension Insulin dependent diabetes mellitus Leg cramps Leg pain Neuropathy Non-compliance Non-healing surgical wound Nonhealing nonsurgical wound with fat layer exposed NSTEMI (non-ST elevated myocardial infarction) (~03/2018) Old myocardial infarction Other specified peripheral vascular diseases Segmental and somatic dysfunction of cervical region Segmental and somatic dysfunction of lumbar region Segmental and somatic dysfunction of thoracic region Skin ulcer of finger with fat layer exposed Syncope Thoracic neuritis Ulcer of right foot with fat layer exposed Xerosis cutis Xerosis of skin Home Medications biotin 1 mg tablet 1 mg PO DAILY general health 04/01/18 [History Last Taken 03/26/20] desonide 0.05 % topical cream 1 applic topical BID PRN Dry Skin 04/01/18 [History Last Taken 03/30/18] insulin lispro 100 unit/mL subcutaneous pen See Protocol SQ TIDCM diabetes 04/01/18 [History Last Taken 03/26/20] ketoconazole 2 % topical cream 1 applic topical DAILY PRN Dry Skin 04/01/18 [History Last Taken 03/30/18] metoprolol tartrate 25 mg tablet 12.5 mg PO BID heart 07/19/18 [History Last Taken 12/01/21] albuterol sulfate 90 mcg/actuation aerosol inhaler (ProAir HFA) 2 puff inhalation Q4H PRN Sob &/Or Wheezing 08/13/19 [History Last Taken Unknown] amlodipine 10 mg tablet 10 mg PO DAILY blood pressure 08/13/19 [History Last Taken 12/01/21] cetirizine 10 mg tablet 10 mg PO DAILY allergies 08/13/19 [History Last Taken 03/26/20] simvastatin 10 mg tablet 10 mg PO QHS cholesterol 08/13/19 [History Last Taken 03/25/20] cyanocobalamin (vitamin B-12) 1,000 mcg/mL injection solution 1,000 mcg IM Q30D supplement 08/22/19 [History Last Taken 03/26/20] aspirin 81 mg tablet,delayed release 162 mg PO DAILY blood flow 10/12/19 [History Last Taken 11/25/21] lisinopril 5 mg tablet 5 mg PO QDAY blood pressure 03/26/20 [History Last Taken 12/01/21] metformin 500 mg tablet 500 mg PO BID DIABETES 10/27/21 [History Last Taken Unknown] baclofen 20 mg tablet 20 mg PO TID PAIN 11/17/21 [History Last Taken Unknown] cholecalciferol (vitamin D3) 125 mcg (5,000 unit) tablet (Vitamin D3) 125 mcg PO DAILY SUPPLEMENT 11/17/21 [History Last Taken Unknown] coenzyme Q10 100 mg tablet 100 mg PO QHS SUPPLEMENT 11/17/21 [History Last Taken Unknown] montelukast 10 mg tablet (Singulair) 10 mg PO QHS LUNGS 11/17/21 [History Last Taken Unknown] omega-3 fatty acids 1,000 mg PO DAILY SUPPLEMENT 11/17/21 [History Last Taken Unknown] acetaminophen 500 mg tablet 500 mg PO TID PAIN 04/26/22 [History Last Taken Unknown] ammonium lactate 12 % lotion 1 applic topical PRN PRN SKIN 04/26/22 [History Last Taken Unknown] docusate sodium 100 mg capsule 100 mg PO BID PRN Constipation 04/26/22 [History Last Taken Unknown] levomefolate Ca 3 mg-B6 35 mg-meB12 2 mg-algal oil 90.314 mg capsule (Foltanx RF) 1 cap PO BID 07/11/22 [History Last Taken Unknown] magnesium oxide 500 mg PO DAILY 04/26/22 [History Last Taken Unknown] pregabalin 100 mg capsule (Lyrica) 200 mg PO TID PAIN 04/26/22 [History Last Taken Unknown] turmeric root extract 500 mg tablet 1,000 mg PO DAILY 04/26/22 [History Last Taken Unknown] vardenafil 20 mg tablet 20 mg PO DAILY PRN ERECTION 04/26/22 [History Last Taken Unknown] Allergy/AdvReac Type Severity Reaction Status Date / Time [id number] Reductase AdvReac Severe myalgia Verified 07/21/22 10:10 Inhibitor atorvastatin AdvReac Unknown Verified 07/21/22 10:10 Family History Father Diabetes Heart disease Hypertension Grandfather Diabetes Heart disease Grandmother Diabetes Mother Diabetes Hypertension Other Arthritis Surgical History Amputation toe H/O three vessel coronary artery bypass (~04/12/18) History of hand surgery Hx of cardiac catheterization Hx of elbow surgery Hx of left knee surgery Status post finger joint fusion Social History (Updated 07/21/22 @ 13:[address] Magaly Bull DO) household members: spouse housing: house Smoking Status: Former smoker Smokeless tobacco user: chewing tobacco second hand exposure: Yes alcohol intake: current alcohol intake frequency: holidays/special occasions only Alcohol type: beer substance use type: does not use additional social history: Does Take Aspirin Does not take Ibuprofen ROS Constitutional Constitutional: Reports fatigue, malaise and weakness; Denies anorexia, change in weight, chills, fever(s), night sweats or other Eyes Eyes: Denies blurry vision, change in eye color, change in vision, discharge from eye(s), double vision, erythema, eye pain, loss of vision or other ENT HEENT: Denies abnormal hearing, dysphagia, ear pain, epistaxis, headache(s), hearing loss, nasal congestion, nasal discharge, post nasal drip, sinus pressure, sore throat or other Cardiovascular Cardiovascular: Reports dyspnea on exertion and orthopnea; Denies chest pain, claudication, edema, lightheadedness, palpitations, paroxysmal nocturnal dyspnea, rapid heart rate, syncope or other Respiratory/Chest Respiratory/Chest: Reports cough, dyspnea, shortness of breath at rest and shortness of breath with exertion; Denies excessive phlegm production, hemoptysis, productive cough, wheezing or other Gastrointestinal Gastrointestinal: Reports nausea; Denies abdominal pain, coffee ground emesis, constipation, diarrhea, dyspepsia, hematemesis, hematochezia, loose stools, melena, vomiting or other Genitourinary Genitourinary: Denies burning urination, difficulty urinating, dysuria, hematuria, nocturia, urinary frequency, urinary hesitancy, urinary incontinence, urinary urgency or other Musculoskeletal Musculoskeletal: Reports back pain, joint pain and joint stiffness; Denies arthralgias, joint swelling, myalgias, neck pain or other Neurologic Neurologic: Denies abnormal gait, abnormal speech, confusion, disequilibrium, dizziness, focal weakness, headache(s), numbness, paresthesias, seizure-like activity, seizures, syncope, tingling, tremor(s) or other Psychiatric Psychiatric: Denies anxiety, depression, homicidal ideation, suicidal ideation or other Endocrine Endocrinology: Denies change in body appearance, cold intolerance, excessive sweating, heat intolerance, polydipsia, polyuria or other Hematologic/Lymphatic Hematologic/Lymphatic: Denies anemia, easy bleeding, easy bruising, lymphadenopathy or other Allergic/Immunologic Allergic/Immunologic: Denies rhinitis, hives, eczemia, asthma or other Vital Signs Vital Signs Vital Signs: 07/21/22 10:10 07/21/22 10:47 07/21/22 11:09 Temperature 98.2 F Temperature Source Temporal Pulse Rate 109 H 108 H Respiratory Rate 20 H 28 H Respiratory Effort Short of Breath Blood Pressure 123/77 H 111/72 Blood Pressure Mean 92 85 Pulse Ox 98 81 Oxygen Delivery Method Room Air Room Air Oxygen Flow Rate (L/min) 07/21/22 11:17 07/21/22 12:15 Temperature 98.5 F Temperature Source Temporal Pulse Rate 109 H Respiratory Rate 32 H Respiratory Effort Blood Pressure 145/87 H Blood Pressure Mean 106 Pulse Ox 94 91 Oxygen Delivery Method Nasal Cannula Nasal Cannula Oxygen Flow Rate (L/min) 3 3 Weight Weight: 99.79 kg Body Mass Index (BMI) 30.7 Physical Exam Const alert Constitutional Narrative: Obese, upper middle-aged white male, lying in bed, at bedside, patient appears as if he is feeling unwell but not toxic, very pleasant General Appearance: cooperative HEENT normocephalic and head/scalp atraumatic HEENT Narrative: Mallampati 2-3, no thrush, dentition is good Eyes PERRL, EOMs intact bilaterally and conjunctivae normal Eyes Narrative: No scleral icterus Neck no lymphadenopathy, supple, No no JVD and no carotid bruits Neck Narrative: Positive JVD, trachea midline, no thyroid enlargement Resp no retractions and no use of accessory muscles Resp Narrative: Bibasilar crackles, mild tachypnea Auscultation: crackles; Negative for rhonchi or wheezes Cardio regular rhythm, S1 normal heart sound, S2 normal heart sound, no murmurs, no rub, no gallops and no clicks Cardio Narrative: Mild tachycardia-sinus GI normal to inspection, nondistended, normoactive bowel sounds, soft to palpation and non-tender Extremity no clubbing, cyanosis or edema Extremity Narrative: 2+ pedal pulses, 2+ radial pulses Skin no rashes or lesions noted, no wounds, skin turgor normal, no jaundice, no petechiae and no mottling Neuro oriented x3, CN's II-XII intact bilaterally, moves all extremities and no focal motor deficits Neuro Narrative: Bilateral lower extremity distal neuropathy with decreased sensation Speech: speech normal Psych affect normal Psych Narrative: Patient appears fatigued but appropriately interactive Results Lab / Micro Data Result Diagrams: 07/21/22 10:40 07/21/22 10:40 Labs: Laboratory Results - last 24 hr 07/21/22 10:40: WBC 13.8 H, RBC 3.21 L, Hgb 10.9 L, Hct 35.0 L, MCV 109.0 H, MCH 34.0 H, MCHC 31.1 L, RDW Std Deviation 56.7 H, RDW Coeff of Mayi 14.6, Plt Count 211, MPV 11.0, Immature Gran % (Auto) 1.900 H, Neut % (Auto) 82.4 H, Lymph % (Auto) 6.2 L, [place] % (Auto) 9.1, Eos % (Auto) 0.0, Baso % (Auto) 0.4, Absolute Neuts (auto) 11.4 H, Absolute Lymphs (auto) 0.86, Nucleated RBC % 0 07/21/22 10:40: D-Dimer Quant (PE/DVT) 1.10 H* 07/21/22 10:40: Sodium 136, Potassium 4.8, Chloride 103, Carbon Dioxide 25.0, Anion Gap 8, BUN 22 H, Creatinine 1.43 H, Estim Creat Clear Calc 57.78, Est GFR (MDRD) Af Amer 65, Est GFR (MDRD) Non-Af 53 L, BUN/Creatinine Ratio 15.4, Glucose 301 H, Calcium 8.9, Total Bilirubin 1.60 H, AST 53 H, ALT 29, Alkaline Phosphatase 63, Troponin I High Sens 3531 H*, Total Protein 7.8, Albumin 3.2, Gl obulin 4.6 H, Albumin/Globulin Ratio 0.7 L 07/21/22 10:40: B-Natriuretic Peptide 1595.8 H 07/21/22 10:40: PT 14.4, INR 1.2, APTT 32.0 07/21/22 13:10: Urine Color Yellow, Urine Clarity Clear, Urine pH 7.0, Ur Specific [place] 1.010, Urine Protein Negative, Urine Glucose (UA) 100 H, Urine Ketones Negative, Urine Occult Blood Negative, Urine Nitrite Negative, Urine Bilirubin Negative, Urine Urobilinogen Normal, Ur Leukocyte Esterase Negative Micro: Microbiology 07/21/22 10:30 Nasal Secretion SARS-CoV-2 & FLU Antigen (Rapid) - Final Radiology Impression Chest X-Ray 07/21/22 10:50 IMPRESSION: Patchy infiltrates at the lung bases more prominent on the left side. Follow-up is recommended. Electronically Signed: Chapo Viramontes MD at 11:17 EDT , Chest CTA 07/21/22 11:37 IMPRESSION: Small bilateral pleural effusions with patchy infiltrates as described preferentially in the peripheral distribution. This is suggestive of Covid pneumonitis. Electronically Signed: Chapo Viramontes MD at 12:07 EDT , Assessment & Plan Assessment/Plan (1) CHF (congestive heart failure): (2) Non-ST elevated myocardial infarction: (3) Acute respiratory failure with hypoxia: (4) Leukocytosis: PLAN: Plan Acute hypoxic respiratory failure secondary to CHF-unknown type/viral syndrome -Patient with acute hypoxia having oxygen saturations of 81% on room air, tachycardia, tachypnea -Bilateral crackles on exam -COVID rapid negative--> PCR is pending -Check respiratory viral panel -Doubt bacterial but will check strep pneumo and Legionella antigens -Hold antibiotics -Lasix 40 mg 3 times daily -Daily weights -Accurate I's and O's -1500 cc fluid restriction -Salt restricted diet -Continue home metoprolol and lisinopril NSTEMI -Type I versus type II--> unclear at this time -Patient with significant cardiac history having CABG in 2018 at [facility] by Dr. Marko CRENSHAW to LAD/SVG to OM/SVG to left PDA -Not had any issues since his CABG -EKG shows sinus tachycardia with no ST-T wave changes consistent with acute ischemia, intervals are normal -Continue heparin drip -Has significant risk factors including DM-2,/HTN/HPL -Continue aspirin -Continue metoprolol -Continue lisinopril -Cycle cardiac enzymes -Check lipids/hemoglobin A1c -Check echocardiogram--> most recent echo per our records 05/19/2020 showed an EF of 50% with mild to moderate mitral annular calcification and no significant valvular disease with right ventricular systolic pressure of 26 mmHg -Cardiology consultation--> will discuss with Dr. Hoang Hyperlipidemia -Continue home statin -Check lipids Hypertension -Continue metoprolol 12.5 mg p.o. twice daily -Continue lisinopril 5 mill grams daily -Continue amlodipine 10 mg daily DM-2 -Most recent hemoglobin A1c was from 11/23/2021 and was 5.6 -Hold home metformin -Continue sliding scale -Accu-Cheks as ordered -Recheck hemoglobin A1c -Blood sugar on admission was 300--> may be stress response JUAN -Baseline serum creatinine appears to be 0.8-1.0 -Is been a little bit higher recently -Currently 1.43 -Monitor closely with diuresis -Avoid nephrotoxins -Could be related to cardiorenal issues with decreased perfusion Neuropathy/chronic pain -Continue Lyrica but decrease dose to 100 mg 3 times daily -Home dose is 200 mg 3 times daily however this is significantly higher than recommended max dose of 300 mg daily -Continue baclofen ED -Restart home medications at discharge History of alcohol use -Patient denies any daily or regularly use at this time -Dhruv he has a social drink every once in a while History of tobacco use -Uses chewing tobacco -We will provide nicotine patch if needed DVT prophylaxis -Heparin drip CODE STATUS -Full code is verified admission the emergency department Charges/Coding Visit Charges Inpatient E&M: 78289 Init Hosp L3
--- NOTE | 2022-07-21 13:50 | ECHOD_ITS ---
Reason For Study: CHF Procedure This was a 2D Doppler, Color Flow transthoracic echocardiogram. Contrast injection was performed. Exam performed portable in patient room. Left Ventricle Normal LV size. Severe global left ventricular systolic dysfunction. The estimated ejection fraction is 20 %. Stage 3 diastolic dysfunction. There is severe global hypokinesis of the left ventricle. Right Ventricle Mildly dilated right ventricle. Normal systolic function. Atria The left atrium is mildly enlarged. The right atrium is mildly enlarged. Mitral Valve There is mild to moderate mitral annular calcification. Mild (1+) eccentric mitral valve insufficiency. Tricuspid Valve Normal tricuspid valve. Mild (1+) tricuspid valve insufficiency. Pulmonary artery systolic pressure is 42 mmHg. Aortic Valve Trisinus/trileaflet aortic valve. Mild focal aortic valve calcification. Pulmonic Valve Normal pulmonic valve. Mild (1+) pulmonic valve insufficiency. Great Vessels Normal aortic root. The pulmonary artery is normal size. Normal inferior vena cava. Pericardium/Pleural No pericardial effusion. Medication Diluted definity 2.5ml given slow IV push to enhance endocardial definition. MMode/2D Measurements & Calculations LVIDd: 5.4 cm IVSd: 1.0 cm Ao root diam: 2.7 cm LVIDs: 5.1 cm LVPWd: 1.1 cm RVDd: 4.9 cm FS: 6.3 % LAV(MOD-bp): 60.0 ml LA A4 area: 21.8 cm2 LA dimension(2D): 4.7 cm LAV(MOD-bp) Indexed: 27.3 ml/m2 LAV(MOD-sp2): 58.2 ml LAV(MOD-sp4): 62.0 ml RA A4 area: 17.4 cm2 Time Measurements MV dec time: 0.30 sec Doppler Measurements & Calculations MV E max bucky: 138.3 cm/sec Lat Peak E' Bucky: 7.9 cm/sec Med Peak E' Bucky: 5.2 cm/sec MV A max bucky: 54.6 cm/sec E/E' lat: 17.6 E/E' med: 26.7 MV E/A: 2.5 MV V2 max: 138.8 cm/sec MV P1/2t max bucky: 139.3 cm/sec Ao V2 max: 156.1 cm/sec MV max P.7 mmHg MV P1/2t: 89.1 msec Ao max P.7 mmHg MV V2 mean: 75.3 cm/sec MV dec slope: 457.8 cm/sec2 Ao V2 mean: 102.6 cm/sec MV mean P.9 mmHg Ao mean P.7 mmHg MV V2 VTI: 31.1 cm MVA(P1/2t): 2.5 cm2 Ao V2 VTI: 26.6 cm LV V1 max: 101.7 cm/sec PA V2 max: 83.7 cm/sec TR max bucky: 310.9 cm/sec LV V1 max P.1 mmHg TR max P.7 mmHg ECHO/Echo Complete W/ Contrast Interpretation Summary Normal LV size. Severe global left ventricular systolic dysfunction. The estimated ejection fraction is 20 %. Stage 3 diastolic dysfunction. Compared to previous study, the left ventricular systolic function has worsened .. Contrast injection was performed. Ordering Physician: Magaly Bull Referring Physician: Avery Escalante Performed By: Hyun Jean, KALEY, RVT
[2022-07-21] MEDS: Baclofen 10 MG Tablet 20 MG PO ×2 (15:29→20:44)
[2022-07-21] MEDS: Pregabalin 50 MG Capsule 100 MG PO ×2 (15:29→20:45)
[2022-07-21] MEDS: Acetaminophen 500 MG Tablet PO ×2 (15:30→20:47)
[2022-07-21 15:58] LABS: Troponin-I HS 4564 pg/mL (3.0-78.0)
--- NOTE | 2022-07-21 16:31 | PCM.CONS.C ---
Assessment & Plan Assessment/Plan (1) Non-ST elevated myocardial infarction: PLAN: He presents with nondescript symptoms and is noted to have a non-ST elevation myocardial infarction. His ejection fraction by preliminary evaluation of his echocardiogram demonstrates severe left ventricular systolic dysfunction. This may suggest early graft failure. This may need to be further evaluated with a left heart catheterization. The decision on the timing of the above will be left to the primary commodity broker. In the meantime continue heparin administration Continue aspirin Resume beta-kurt (2) CHF (congestive heart failure): PLAN: He does appear to have evidence of congestive heart failure with reduced ejection fraction. Would recommend starting beta-kurt Consider SGLT2 inhibitor At this time his kidney function will need to be evaluated further before he is continued on an REINIER inhibitor or ARB or Entresto Will need to institute cautious diuresis (3) H/O three vessel coronary artery bypass: PLAN: He is status post coronary bypass surgery as noted above. It is unclear whether he has had some evidence of graft failure and this may need to be evaluated. (4) Essential (primary) hypertension: PLAN: He does have a history of hypertension his blood pressure appears to be under fairly good control at this time. Thank you for allowing me to participate in the care of your patient. Please don't hesitate to call if any issues arise. HPI Consult Data Date of Consult: 07/21/22 HPI Narrative HPI Narrative: RICK GEORGE, is a 62 M who presents to the emergency room for the second time in 2 weeks with complaints of not feeling well. He presented here a few weeks ago and was noted to be hypokalemic he was treated discharge and asked to follow-up as an outpatient. In 2018 he underwent coronary bypass graft surgery with a MACK to the LAD saphenous vein graft to obtuse marginal branch and saphenous vein graft to posterior descending artery. He has been followed up in the cardiology office. This time he presented not feeling well and complained of some bloating as well as some shortness of breath. He denied any pedal edema and no chest pain no paroxysmal nocturnal dyspnea. He says that he has otherwise been active. He was seen in the emergency room his electrocardiogram did not demonstrate any acute changes. His blood work however demonstrated significantly elevated cardiac troponin enzymes and he was started on intravenous heparin and cardiology consulted. Chest x-ray demonstrated mild bilateral fluid overload status. At this particular time he remains free of any chest discomfort. FOR[facility]LY [facility], LATER [facility] Medical History Acute congestive heart failure Alcohol use Arthritis Atherosclerotic heart disease of [place] coronary artery without angina pectoris Back pain Boutonniere deformity of finger of right hand Callous ulcer with fat layer exposed Cardiology follow-up encounter Cellulitis lft foot failed outpatient tx Cerebrovascular disease Chewing tobacco nicotine dependence Chronic skin ulcer with fat layer exposed Chronic ulcer of left foot with fat layer exposed CVA (cerebral vascular accident) Diabetes mellitus type 2 with complications Diabetic foot ulcer associated with type 2 diabetes mellitus Discoloration of skin of finger Environmental allergies Essential (primary) hypertension Finger osteomyelitis, right Frostbite of finger of right hand H/O stroke associated with blood clotting tendency Hammertoe of left foot Hammertoe of right foot History of frostbite HLD (hyperlipidemia) Hx of cardiovascular stress test Hx of echocardiogram Hx of edema Hypertension Insulin dependent diabetes mellitus Leg cramps Leg pain Neuropathy Non-compliance Non-healing surgical wound Nonhealing nonsurgical wound with fat layer exposed NSTEMI (non-ST elevated myocardial infarction) (~03/2018) Old myocardial infarction Other specified peripheral vascular diseases Segmental and somatic dysfunction of cervical region Segmental and somatic dysfunction of lumbar region Segmental and somatic dysfunction of thoracic region Skin ulcer of finger with fat layer exposed Syncope Thoracic neuritis Ulcer of right foot with fat layer exposed Xerosis cutis Xerosis of skin Home Medications biotin 1 mg tablet 1 mg PO DAILY general health 04/01/18 [History Last Taken 03/26/20] desonide 0.05 % topical cream 1 applic topical BID PRN Dry Skin 04/01/18 [History Last Taken 03/30/18] insulin lispro 100 unit/mL subcutaneous pen See Protocol SQ TIDCM diabetes 04/01/18 [History Last Taken 03/26/20] ketoconazole 2 % topical cream 1 applic topical DAILY PRN Dry Skin 04/01/18 [History Last Taken 03/30/18] metoprolol tartrate 25 mg tablet 12.5 mg PO BID heart 07/19/18 [History Last Taken 12/01/21] albuterol sulfate 90 mcg/actuation aerosol inhaler (ProAir HFA) 2 puff inhalation Q4H PRN Sob &/Or Wheezing 08/13/19 [History Last Taken Unknown] amlodipine 10 mg tablet 10 mg PO DAILY blood pressure 08/13/19 [History Last Taken 12/01/21] cetirizine 10 mg tablet 10 mg PO DAILY allergies 08/13/19 [History Last Taken 03/26/20] simvastatin 10 mg tablet 10 mg PO QHS cholesterol 08/13/19 [History Last Taken 03/25/20] cyanocobalamin (vitamin B-12) 1,000 mcg/mL injection solution 1,000 mcg IM Q30D supplement 08/22/19 [History Last Taken 03/26/20] aspirin 81 mg tablet,delayed release 162 mg PO DAILY blood flow 10/12/19 [History Last Taken 11/25/21] lisinopril 5 mg tablet 5 mg PO QDAY blood pressure 03/26/20 [History Last Taken 12/01/21] metformin 500 mg tablet 500 mg PO BID DIABETES 10/27/21 [History Last Taken Unknown] baclofen 20 mg tablet 20 mg PO TID PAIN 11/17/21 [History Last Taken Unknown] cholecalciferol (vitamin D3) 125 mcg (5,000 unit) tablet (Vitamin D3) 125 mcg PO DAILY SUPPLEMENT 11/17/21 [History Last Taken Unknown] coenzyme Q10 100 mg tablet 100 mg PO QHS SUPPLEMENT 11/17/21 [History Last Taken Unknown] montelukast 10 mg tablet (Singulair) 10 mg PO QHS LUNGS 11/17/21 [History Last Taken Unknown] omega-3 fatty acids 1,000 mg PO DAILY SUPPLEMENT 11/17/21 [History Last Taken Unknown] acetaminophen 500 mg tablet 500 mg PO TID PAIN 04/26/22 [History Last Taken Unknown] ammonium lactate 12 % lotion 1 applic topical PRN PRN SKIN 04/26/22 [History Last Taken Unknown] docusate sodium 100 mg capsule 100 mg PO BID PRN Constipation 04/26/22 [History Last Taken Unknown] levomefolate Ca 3 mg-B6 35 mg-meB12 2 mg-algal oil 90.314 mg capsule (Foltanx RF) 1 cap PO BID 04/26/22 [History Last Taken Unknown] magnesium oxide 500 mg PO DAILY 04/26/22 [History Last Taken Unknown] pregabalin 100 mg capsule (Lyrica) 200 mg PO TID PAIN 04/26/22 [History Last Taken Unknown] turmeric root extract 500 mg tablet 1,000 mg PO DAILY 04/26/22 [History Last Taken Unknown] vardenafil 20 mg tablet 20 mg PO DAILY PRN ERECTION 04/26/22 [History Last Taken Unknown] Allergy/AdvReac Type Severity Reaction Status Date / Time Lqouinu-PTG-MeC Reductase AdvReac Severe myalgia Verified 07/21/22 10:10 Inhibitor atorvastatin AdvReac Unknown Verified 07/21/22 10:10 Family History Father Diabetes Heart disease Hypertension Grandfather Diabetes Heart disease Grandmother Diabetes Mother Diabetes Hypertension Other Arthritis Surgical History Amputation toe H/O three vessel coronary artery bypass (~04/12/18) History of hand surgery Hx of cardiac catheterization Hx of elbow surgery Hx of left knee surgery Status post finger joint fusion Social History household members: spouse housing: house Smoking Status: Former smoker Smokeless tobacco user: chewing tobacco second hand exposure: Yes alcohol intake: current alcohol intake frequency: holidays/special occasions only Alcohol type: beer substance use type: does not use additional social history: Does Take Aspirin Does not take Ibuprofen Physical Exam Const alert Constitutional Narrative: Obese, upper middle-aged white male, lying in bed, at bedside, patient appears as if he is feeling unwell but not toxic, very pleasant General Appearance: cooperative HEENT normocephalic and head/scalp atraumatic HEENT Narrative: Mallampati 2-3, no thrush, dentition is good Eyes PERRL, EOMs intact bilaterally and conjunctivae normal Eyes Narrative: No scleral icterus Neck no lymphadenopathy, supple, No no JVD and no carotid bruits Neck Narrative: Positive JVD, trachea midline, no thyroid enlargement Resp no retractions and no use of accessory muscles Resp Narrative: Bibasilar crackles, mild tachypnea Auscultation: crackles; Negative for rhonchi or wheezes Cardio regular rhythm, S1 normal heart sound, S2 normal heart sound, no murmurs, no rub, no gallops and no clicks Cardio Narrative: Mild tachycardia-sinus GI normal to inspection, nondistended, normoactive bowel sounds, soft to palpation and non-tender Extremity no clubbing, cyanosis or edema Extremity Narrative: 2+ pedal pulses, 2+ radial pulses Skin no rashes or lesions noted, no wounds, skin turgor normal, no jaundice, no petechiae and no mottling Neuro oriented x3, CN's II-XII intact bilaterally, moves all extremities and no focal motor deficits Neuro Narrative: Bilateral lower extremity distal neuropathy with decreased sensation Speech: speech normal Psych affect normal Psych Narrative: Patient appears fatigued but appropriately interactive Risk Stratification Risk Stratification Applicable: No Objective Data Vital Signs: Vital Signs Temp Pulse Resp BP Pulse Ox O2 Del Method O2 Flow Rate 99.1 F 97 20 H 112/69 94 Nasal Cannula 4 07/21/22 14:02 07/21/22 15:00 07/21/22 14:02 07/21/22 14:02 07/21/22 14:02 07/21/22 14:30 07/21/22 14:30 Oxygen Flow Rate (L/min) 4 Oxygen Delivery Method Nasal Cannula Weight: 223 lb 12.307 oz Body Mass Index (BMI) 32.1 Intake & Output: Intake and Output for Last 24 Hours 07/19/22 07/20/22 07/21/22 23:59 23:59 23:59 Output Total 500 / 500 Balance -500 / -500 Lab / Micro Data Result Diagrams: 07/21/22 10:40 07/21/22 10:40 Labs: Laboratory Results - last 24 hr 07/21/22 10:15: COVID-19 (CAM) Not Detected 07/21/22 10:40: WBC 13.8 H, RBC 3.21 L, Hgb 10.9 L, Hct 35.0 L, MCV 109.0 H, MCH 34.0 H, MCHC 31.1 L, RDW Std Deviation 56.7 H, RDW Coeff of Mayi 14.6, Plt Count 211, MPV 11.0, Immature Gran % (Auto) 1.900 H, Neut % (Auto) 82.4 H, Lymph % (Auto) 6.2 L, Gilliam % (Auto) 9.1, Eos % (Auto) 0.0, Baso % (Auto) 0.4, Absolute Neuts (auto) 11.4 H, Absolute Lymphs (auto) 0.86, Nucleated RBC % 0 07/21/22 10:40: D-Dimer Quant (PE/DVT) 1.10 H* 07/21/22 10:40: Sodium 136, Potassium 4.8, Chloride 103, Carbon Dioxide 25.0, Anion Gap 8, BUN 22 H, Creatinine 1.43 H, Estim Creat Clear Calc 57.78, Est GFR (MDRD) Af Amer 65, Est GFR (MDRD) Non-Af 53 L, BUN/Creatinine Ratio 15.4, Glucose 301 H, Calcium 8.9, Total Bilirubin 1.60 H, AST 53 H, ALT 29, Alkaline Phosphatase 63, Troponin I High Sens 3531 H*, Total Protein 7.8, Albumin 3.2, Globulin 4.6 H, Albumin/Globulin Ratio 0.7 L 07/21/22 10:40: B-Natriuretic Peptide 1595.8 H 07/21/22 10:40: PT 14.4, INR 1.2, APTT 32.0 07/21/22 13:10: Urine Color Yellow, Urine Clarity Clear, Urine pH 7.0, Ur Specific [place] 1.010, Urine Protein Negative, Urine Glucose (UA) 100 H, Urine Ketones Negative, Urine Occult Blood Negative, Urine Nitrite Negative, Urine Bilirubin Negative, Urine Urobilinogen Normal, Ur Leukocyte Esterase Negative, Urine RBC 0 SEEN, Urine WBC 0 SEEN, Ur Squamous Epith Cells 0 SEEN, Urine Bacteria 0 SEEN, Urine Mucus 0 SEEN 07/21/22 14:42: Troponin I High Sens 4564 H* Micro: Microbiology 07/21/22 15:20 Interface Orders Streptococcus pneumoniae Antigen (M - Final 07/21/22 15:20 Interface Orders Legionella Antigen - Final 07/21/22 10:30 Nasal Secretion SARS-CoV-2 & FLU Antigen (Rapid) - Final Cardiology Labs/Tests 07/21/22 10:40: WBC 13.8 H, RBC 3.21 L, Hgb 10.9 L, Hct 35.0 L, MCV 109.0 H, MCH 34.0 H, MCHC 31.1 L, Plt Count 211, MPV 11.0, Immature Gran % (Auto) 1.900 H, Neut % (Auto) 82.4 H, Lymph % (Auto) 6.2 L, Gilliam % (Auto) 9.1, Eos % (Auto) 0.0, Baso % (Auto) 0.4, Absolute Neuts (auto) 11.4 H, Nucleated RBC % 0 07/21/22 10:40: D-Dimer Quant (PE/DVT) 1.10 H* 07/21/22 10:40: Sodium 136, Potassium 4.8, Chloride 103, Carbon Dioxide 25.0, Anion Gap 8, BUN 22 H, Creatinine 1.43 H, Est GFR (MDRD) Af Amer 65, Est GFR (MDRD) Non-Af 53 L, BUN/Creatinine Ratio 15.4, Glucose 301 H, Calcium 8.9, Total Bilirubin 1.60 H 07/21/22 10:40: B-Natriuretic Peptide 1595.8 H 07/21/22 10:40: PT 14.4, INR 1.2, APTT 32.0 07/21/22 13:10: Urine Color Yellow, Urine Clarity Clear, Urine pH 7.0, Ur Specific [place] 1.010, Urine Protein Negative, Urine Glucose (UA) 100 H, Urine Ketones Negative, Urine Occult Blood Negative, Urine Nitrite Negative, Urine Bilirubin Negative, Urine Urobilinogen Normal, Ur Leukocyte Esterase Negative, Urine RBC 0 SEEN, Urine WBC 0 SEEN Rhythm: EKG: ECHO: Stress Test: Cardiac Cath: PCI: CT Surgery: Holter monitor: EPS: PPM: CXR: Chest CT Scan: Radiography Diagnostic Testing: Radiology Impression Chest X-Ray 07/21/22 10:50 IMPRESSION: Patchy infiltrates at the lung bases more prominent on the left side. Follow-up is recommended. Electronically Signed: Chapo Viramontes MD at 11:17 EDT , Chest CTA 07/21/22 11:37 IMPRESSION: Small bilateral pleural effusions with patchy infiltrates as described preferentially in the peripheral distribution. This is suggestive of Covid pneumonitis. Electronically Signed: Chapo Viramontes MD at 12:07 EDT ,
[2022-07-21 16:57] LABS: Troponin-I HS 4914 pg/mL (3.0-78.0)
[2022-07-21 17:25] LABS: Bedside Glucose 212 mg/dL (74-106)
[2022-07-21 19:54] LABS: Partial Thromboplast Time 49.4 Seconds (24.1-36.2)
[2022-07-21] MEDS: Furosemide 40 MG/4 ML Vial IV (20:43)
[2022-07-21] MEDS: Metoprolol Tartrate 25 MG Tablet 12.5 MG PO (20:45)
[2022-07-21] MEDS: Docusate Sodium 100 MG Capsule PO (20:45)
[2022-07-21] MEDS: Montelukast 10 MG Tablet PO (20:47)
[2022-07-21] MEDS: Heparin Injection (Vial) 5,000 UNIT/ML VIAL IV (20:48)
[2022-07-21] MEDS: Simvastatin 10 MG Tablet PO (20:50)
[2022-07-22] VITALS (24 sets, daily range): BP systolic 92–137; BP diastolic 61–85; PULSE 83–118; RESP 12–30; TEMP 36.2–38.1; O2SAT 92–98
--- NOTE | 2022-07-22 03:29 | RAD_ITS ---
EXAM: XR CHEST, 1 VIEW CLINICAL INDICATION: increased SOB, Tachycardia TECHNIQUE: Frontal view of the chest. This report was created using [employer] report generation technology. COMPARISON: 07/21/2022 FINDINGS: LUNGS AND PLEURAL SPACES: Continued patchy bilateral airspace disease, with small pleural effusions. No pneumothorax. HEART: Unremarkable. Cardiac silhouette not enlarged. MEDIASTINUM: Surgical changes of the mediastinum. BONES/JOINTS: Unremarkable. SOFT TISSUES: Unremarkable. RAD/Chest 1 View (Portable) IMPRESSION: Continued patchy bilateral airspace disease, with small pleural effusions. Findings consistent with pneumonia, without significant interval change. Electronically Signed: Juan Ramon Fields MD at 4:19 EDT ,
--- NOTE | 2022-07-22 03:49 | CPS ---
physician was made aware of the significant increase in FiO2 at this time. Physician requested BIPAP and an ABG at this time.
[2022-07-22 04:05] LABS: Absolute Lymphocyte Count 0.62 X10^3/uL (0.83-4.51); Basophil# 0.04 X10^3/uL; Basophil% 0.3 % (0-1); Eosinophil# 0.04 X10^3/uL; Eosinophils% 0.3 % (0-5); Hemoglobin 11.4 g/dL (13.0-16.5); Lymphocyte # 0.62 X10^3/ul (0.83-4.51); Lymphocyte % 5.3 % (19-41); Mean Corp Hgb Conc 31.7 g/dL (32-36); Mean Corpuscular Hgb 33.8 pg (27.0-32.0); Mean Corpuscular Volume 106.8 fL (80-94); Mean Platelet Vol. 10.9 fl (6.2-12.0); Monocyte# 0.74 X10^3/uL; Monocyte% 6.3 % (0-10); NRBC Flagged by Analyzer 0.2 % (0-5); Neutrophil # 9.98 X10^3/uL (2.7-7.7); Neutrophil % 85.4 % (47-70); Platelet Count 199 K/mm3 (150-450); RBC Distribution Width CV 14.4 % (11.6-14.6); RBC Distribution Width SD 56.1 fl (35.1-43.9); Red Blood Count 3.37 M/mm3 (4.6-6.2); White Blood Count 11.7 K/mm3 (4.4-11.0)
--- NOTE | 2022-07-22 04:18 | NURSING ---
tomography technologist came and got nurse stating needed help in 127 Patient states having hard time breathing. Patient Oxygen off and laying close to face. Oxygen applied and vitals obtained. SP02 84%. Respiratory on floor and came into room patient at 6L put on high flow and increased to 8L bringing SP02 up to 92-94% Patient with increased effort to breathe. Bipap discussed with Respiratory and Dr. Ricks contacted for further instructions. A few times patient kept removing Oxygen while RN was in room and stating Oh no Im busted. Education and encouragement provided in regards to keeping Oxygen applied.
[2022-07-22 04:39] LABS: ALB/GLOB Ratio 0.7 RATIO (0.9-2.4); AST(SGOT) 51 U/L (15-37); Alanine Aminotransfer ALT/SGPT 29 U/L (16-61); Alkaline Phosphatase 65 U/L (45-117); Anion Gap 10 (5-15); BUN 22 mg/dL (7-18); BUN/Creat Ratio 18.8 RATIO (10-20); Calcium,Total 9.1 mg/dL (8.5-10.1); Chloride 103 mmol/L (98-107); Cholesterol 123 mg/dL (200); Creatinine, Serum 1.17 mg/dL (0.70-1.30); EST Glomerular Filtration Rate 67 mL/min (>60); Est Glom Filt Rate - Afr Amer 81 mL/min (>60); Estimated Creatinine Clearance 68.46 ml/min; Globulin 4.6 g/dL (2.2-4.2); Glucose 232 mg/dL (74-106); High Density Lipoprotein 43 mg/dL; Magnesium 1.8 mg/dL (1.6-2.6); Phosphorus 1.9 mg/dL (2.5-4.9); Potassium 4.1 mmol/L (3.5-5.1); Protein, Total 7.6 g/dL (6.4-8.2); Sodium Level 138 mmol/L (136-145); Triglycerides 139 mg/dL; Very Low Density Lipoprotein 28 mg/dL (5-40)
[2022-07-22 04:41] LABS: Base Excess 0 mmol/L (-2 to +2); Bicarbonate 23.9 mmol/L (22-26); Blood Gas Specimen Type ART; O2 Delivery Device Cannula; PO2 60 mmHG (75-100); SITE L Radial; SO2 92 % (95-99); Total Carbon Dioxide 25 mmol/L; pCO2 32.8 mmHg (35-45); pH 7.47 (7.35-7.45)
[2022-07-22] MEDS: Furosemide 40 MG/4 ML Vial IV (04:44)
[2022-07-22] MEDS: 0.9% Saline Lock 10 ML Syringe IV ×3 (04:49→22:23)
[2022-07-22 06:55] LABS: Bedside Glucose 190 mg/dL (74-106)
--- NOTE | 2022-07-22 07:39 | RAD_ITS ---
STUDY: X-RAY CHEST REASON FOR EXAM: Male, 62 years old. Shortness of breath. TECHNIQUE: Single AP portable view of the chest. COMPARISON: Comparison is made with prior examination dated 07/22/2022 at 3:35 AM. FINDINGS: EKG electrodes are seen. Persistent bilateral pulmonary infiltrates. Since prior study, there has been a mild degree of improvement. There is no demonstrated pleural abnormality. Sternal cerclage wires and vascular clips are present from a prior sternotomy and coronary artery bypass graft procedure (CABG). Normal mediastinum and kaci. Normal visualized pulmonary arteries. There is atherosclerotic calcification of the aortic arch with tortuosity. Normal visualized thoracic spine. Normal visualized ribs, clavicles, and shoulders. There is no demonstrated abnormality of the visualized soft tissue structures of the upper abdomen. RAD/Chest 1 View (Portable) IMPRESSION: Persistent bilateral patchy infiltrates worse in the left hemithorax although there has been some improvement as compared to prior study. Electronically Signed: Chapo Viramontes MD at 9:20 EDT ,
--- NOTE | 2022-07-22 08:15 | PCM.PN.CARD ---
Subjective Subjective The patient is awake and alert. He denies ongoing chest discomfort at this time. He states he was unable to lie his bed supine last night. He required increased O2 nasal cannula and BiPAP therapy during the night. Objective Data Vital Signs: Vital Signs Temp Pulse Resp BP Pulse Ox O2 Del Method O2 Flow Rate 100.6 F H 112 H 18 124/69 H 92 Nasal Cannula 6 07/22/22 07:48 07/22/22 07:48 07/22/22 07:48 07/22/22 07:48 07/22/22 07:48 07/22/22 07:48 07/22/22 07:48 FiO2 40 07/22/22 05:29 Oxygen Flow Rate (L/min) 6 Oxygen Delivery Method Nasal Cannula Weight: 220 lb 7.396 oz Body Mass Index (BMI) 32.1 Intake & Output: Intake and Output for Last 24 Hours 07/20/22 07/21/22 07/22/22 23:59 23:59 23:59 Intake Total 207.1 / 207.1 109.5 / 109.5 Output Total 850 / 850 450 / 450 Balance -642.9 / -642.9 -340.5 / -340.5 Lab / Micro Data Result Diagrams: 07/22/22 03:56 07/22/22 03:56 Labs: Laboratory Results - last 24 hr 07/21/22 10:15: COVID-19 (CAM) Not Detected 07/21/22 10:40: WBC 13.8 H, RBC 3.21 L, Hgb 10.9 L, Hct 35.0 L, MCV 109.0 H, MCH 34.0 H, MCHC 31.1 L, RDW Std Deviation 56.7 H, RDW Coeff of Mayi 14.6, Plt Count 211, MPV 11.0, Immature Gran % (Auto) 1.900 H, Neut % (Auto) 82.4 H, Lymph % (Auto) 6.2 L, [place] % (Auto) 9.1, Eos % (Auto) 0.0, Baso % (Auto) 0.4, Absolute Neuts (auto) 11.4 H, Absolute Lymphs (auto) 0.86, Nucleated RBC % 0 07/21/22 10:40: D-Dimer Quant (PE/DVT) 1.10 H* 07/21/22 10:40: Sodium 136, Potassium 4.8, Chloride 103, Carbon Dioxide 25.0, Anion Gap 8, BUN 22 H, Creatinine 1.43 H, Estim Creat Clear Calc 57.78, Est GFR (MDRD) Af Amer 65, Est GFR (MDRD) Non-Af 53 L, BUN/Creatinine Ratio 15.4, Glucose 301 H, Calcium 8.9, Total Bilirubin 1.60 H, AST 53 H, ALT 29, Alkaline Phosphatase 63, Troponin I High Sens 3531 H*, Total Protein 7.8, Albumin 3.2, Globulin 4.6 H, Albumin/Globulin Ratio 0.7 L 07/21/22 10:40: B-Natriuretic Peptide 1595.8 H 07/21/22 10:40: PT 14.4, INR 1.2, APTT 32.0 07/21/22 13:10: Urine Color Yellow, Urine Clarity Clear, Urine pH 7.0, Ur Specific Outing 1.010, Urine Protein Negative, Urine Glucose (UA) 100 H, Urine Ketones Negative, Urine Occult Blood Negative, Urine Nitrite Negative, Urine Bilirubin Negative, Urine Urobilinogen Normal, Ur Leukocyte Esterase Negative, Urine RBC 0 SEEN, Urine WBC 0 SEEN, Ur Squamous Epith Cells 0 SEEN, Urine Bacteria 0 SEEN, Urine Mucus 0 SEEN 07/21/22 14:42: Troponin I High Sens 4564 H* 07/21/22 16:10: Troponin I High Sens 4914 H* 07/21/22 17:00: POC Glucose 212 H 07/21/22 19:00: APTT 49.4 H 07/22/22 03:56: WBC 11.7 H, RBC 3.37 L, Hgb 11.4 L, Hct 36.0 L, MCV 106.8 H, MCH 33.8 H, MCHC 31.7 L, RDW Std Deviation 56.1 H, RDW Coeff of Mayi 14.4, Plt Count 199, MPV 10.9, Immature Gran % (Auto) 2.400 H, Neut % (Auto) 85.4 H, Lymph % (Auto) 5.3 L, [place] % (Auto) 6.3, Eos % (Auto) 0.3, Baso % (Auto) 0.3, Absolute Neuts (auto) 10.0 H, Absolute Lymphs (auto) 0.62 L, Nucleated RBC % 0.2 10/06/22 03:56: Sodium 138, Potassium 4.1, Chloride 103, Carbon Dioxide 25.0, Anion Gap 10, BUN 22 H, Creatinine 1.17, Estim Creat Clear Calc 68.46, Est GFR (MDRD) Af Amer 81, Est GFR (MDRD) Non-Af 67, BUN/Creatinine Ratio 18.8, Glucose 232 H, Calcium 9.1, Phosphorus 1.9 L, Magnesium 1.8, Total Bilirubin 1.60 H, AST 51 H, ALT 29, Alkaline Phosphatase 65, Total Protein 7.6, Albumin 3.0 L, Globulin 4.6 H, Albumin/Globulin Ratio 0.7 L, Triglycerides 139, Cholesterol 123, LDL Cholesterol 52, VLDL Cholesterol 28, HDL Cholesterol 43, TSH 1.60 07/22/22 03:56: APTT 34.0 07/22/22 04:53: POC Glucose 190 H Micro: Microbiology 07/21/22 14:05 Mucosa - Nasopharyngeal Respiratory Panel (PCR) - Final 07/21/22 15:20 Interface Orders Streptococcus pneumoniae Antigen (M - Final 07/21/22 15:20 Interface Orders Legionella Antigen - Final 07/21/22 10:30 Nasal Secretion SARS-CoV-2 & FLU Antigen (Rapid) - Final ABG Data ABG results: ABG 07/22/22 04:37 Specimen Type ART Sample Site L Radial pH 7.47 H Bicarbonate Actual 23.9 Total CO2 25 Base Excess 0 O2 Saturation 92 L ABG pCO2 32.8 L ABG pO2 60 L Chaz Test N/A O2 Delivery Device Cannula Liter Flow 6.0 Cardiology Labs/Tests 07/21/22 10:40: WBC 13.8 H, RBC 3.21 L, Hgb 10.9 L, Hct 35.0 L, MCV 109.0 H, MCH 34.0 H, MCHC 31.1 L, Plt Count 211, MPV 11.0, Immature Gran % (Auto) 1.900 H, Neut % (Auto) 82.4 H, Lymph % (Auto) 6.2 L, [place] % (Auto) 9.1, Eos % (Auto) 0.0, Baso % (Auto) 0.4, Absolute Neuts (auto) 11.4 H, Nucleated RBC % 0 07/21/22 10:40: D-Dimer Quant (PE/DVT) 1.10 H* 07/21/22 10:40: Sodium 136, Potassium 4.8, Chloride 103, Carbon Dioxide 25.0, Anion Gap 8, BUN 22 H, Creatinine 1.43 H, Est GFR (MDRD) Af Amer 65, Est GFR (MDRD) Non-Af 53 L, BUN/Creatinine Ratio 15.4, Glucose 301 H, Calcium 8.9, Total Bilirubin 1.60 H 07/21/22 10:40: B-Natriuretic Peptide 1595.8 H 07/21/22 10:40: PT 14.4, INR 1.2, APTT 32.0 07/21/22 13:10: Urine Color Yellow, Urine Clarity Clear, Urine pH 7.0, Ur Specific Outing 1.010, Urine Protein Negative, Urine Glucose (UA) 100 H, Urine Ketones Negative, Urine Occult Blood Negative, Urine Nitrite Negative, Urine Bilirubin Negative, Urine Urobilinogen Normal, Ur Leukocyte Esterase Negative, Urine RBC 0 SEEN, Urine WBC 0 SEEN 07/21/22 19:00: APTT 49.4 H 07/22/22 03:56: WBC 11.7 H, RBC 3.37 L, Hgb 11.4 L, Hct 36.0 L, MCV 106.8 H, MCH 33.8 H, MCHC 31.7 L, Plt Count 199, MPV 10.9, Immature Gran % (Auto) 2.400 H, Neut % (Auto) 85.4 H, Lymph % (Auto) 5.3 L, [place] % (Auto) 6.3, Eos % (Auto) 0.3, Baso % (Auto) 0.3, Absolute Neuts (auto) 10.0 H, Nucleated RBC % 0.2 07/22/22 03:56: Sodium 138, Potassium 4.1, Chloride 103, Carbon Dioxide 25.0, Anion Gap 10, BUN 22 H, Creatinine 1.17, Est GFR (MDRD) Af Amer 81, Est GFR (MDRD) Non-Af 67, BUN/Creatinine Ratio 18.8, Glucose 232 H, Calcium 9.1, Phosphorus 1.9 L, Magnesium 1.8, Total Bilirubin 1.60 H, Triglycerides 139, Cholesterol 123, LDL Cholesterol 52, VLDL Cholesterol 28, HDL Cholesterol 43 07/22/22 03:56: APTT 34.0 07/22/22 04:37: pH 7.47 H, Bicarbonate Actual 23.9, Base Excess 0, O2 Saturation 92 L, ABG pCO2 32.8 L, ABG pO2 60 L, Chaz Test N/A Rhythm: Sinus rhythm/sinus tachycardia Radiography Diagnostic Testing: Radiology Impression Chest X-Ray 07/21/22 10:50 IMPRESSION: Patchy infiltrates at the lung bases more prominent on the left side. Follow-up is recommended. Electronically Signed: Chapo Viramontes MD at 11:17 EDT , Chest CTA 07/21/22 11:37 IMPRESSION: Small bilateral pleural effusions with patchy infiltrates as described preferentially in the peripheral distribution. This is suggestive of Covid pneumonitis. Electronically Signed: Chapo Viramontes MD at 12:07 EDT , Echocardiogram 07/21/22 13:50 Interpretation Summary Normal LV size. Severe global left ventricular systolic dysfunction. The estimated ejection fraction is 20 %. Stage 3 diastolic dysfunction. Compared to previous study, the left ventricular systolic function has worsened.. Contrast injection was performed. Ordering Physician: Magaly Bull Referring Physician: Avery Escalante Performed By: Hyun Jean, KALEY, RVT Chest X-Ray 07/22/22 03:29 IMPRESSION: Continued patchy bilateral airspace disease, with small pleural effusions. Findings consistent with pneumonia, without significant interval change. Electronically Signed: Juan Ramon Fields MD at 4:19 EDT , Physical Exam Const alert and oriented x3 Orientation / Consciousness: awake HEENT normocephalic, head/scalp atraumatic and hearing grossly normal bilaterally Eyes PERRL, EOMs intact bilaterally and conjunctivae normal Neck full ROM, supple and no JVD Carotids: normal carotid upstroke Chest Chest: midline sternotomy incision Resp Auscultation: rhonchi lower bilaterally (Right greater than left) Cardio Rate: tachycardic Rhythm: regular rhythm Heart Sounds: S1 normal and S2 normal GI normal to inspection, nondistended, normoactive bowel sounds Extremity no pedal edema Psych mental status grossly normal Assessment & Plan Assessment/Plan (1) Non-ST elevated myocardial infarction: PLAN: The patient has findings compatible with an acute non-ST segment elevation FL. The present time the concern is this may be a type II event being brought out by a noncardiac issue such as an underlying infectious issue related to an underlying pulmonary issue-viral versus bacterial. The patient will continue to be monitored. He will continue medical therapy for his underlying CAD/acute coronary syndrome process as deemed appropriate. He is already undergone evaluation with a transthoracic echocardiogram. Eventually it would not be unreasonable to consider him for further evaluation of his coronary/graft status with a diagnostic cardiac catheterization. However, based upon his ongoing concerns of an underlying infectious issues/pulmonary issue this is being placed on temporary hold pending further evaluation and care of those concerns. (2) CHF (congestive heart failure): PLAN: The patient did appear to have an element of CHF. He has been on medical therapy with diuretics. He did have increased diuresis. His renal function was noted to improve. However, on examination, he still has underlying pulmonary findings. Also, on radiologic examination he still has areas of patchy infiltrates which appear to have increased compared to his previous chest x-ray as a opposed to improving. This raises a concern that he may have not only an element of CHF but a separate underlying pulmonary disease process contributing to his cardiovascular findings. (3) CAD (coronary artery disease): PLAN: The patient does have a history of CAD. He has undergone previous noninvasive and invasive evaluation. This led to his CABG. At the moment he will continue medical therapy and evaluation as deemed appropriate during this acute process. (4) H/O three vessel coronary artery bypass: PLAN: The patient has a history of CABG. This included a MACK to the LAD, and SVG to the OM, and SVG to the left PDA performed at [facility] on . He will continue his cardiac and noncardiac evaluation at this time. As noted above eventually he may need further evaluation of his coronary/graft status to help clarify issues with respect to his vasculature with respect to his ongoing concerns. (5) Cardiomyopathy: PLAN: The patient's overall LV systolic function appears to decline. Based upon his noninvasive studies this appears to be somewhat more global and segmental. Based upon his overall clinical course, cardiac findings, noncardiac findings, this does raise concern that he may be experiencing a noncardiac issue such as an infectious disease issue-potentially a viral issue (question an underlying pulmonary disease process with an associated viral cardiomyopathy) that may be contributing to the change in his LV wall motion and systolic function. Thus at the present time he will continue his cardiac support as well as continuing noncardiac evaluation of his underlying pulmonary disease process. (6) Pneumonia: PLAN: He does have an underlying fever. He does have an abnormal pulmonary examination. He had an elevated white count which is decreased somewhat. He has undergone COVID-19 testing x2 which have been negative thus far. His respiratory panel has been negative thus far. He is being further evaluated for the possibility of a coxsackie virus which may, if positive, help explain what appears to be an underlying cardiopulmonary condition. His chest x-ray has demonstrated increased patchy infiltrates. He will continue evaluation care per internal medicine and potentially pulmonology. (7) Acute respiratory failure with hypoxia: PLAN: The patient was noted to become hypoxic requiring increased O2 therapy/support as noted. He continues to have an abnormal physical examination from a pulmonary standpoint. His chest x-ray raises concerns of increasing patchy infiltrates. He will need continue noncardiac evaluation by internal medicine and potentially pulmonology as well for the concerns of an underlying primary pulmonary disease process such as a viral event that could also involve his cardiovascular system such as a viral cardiomyopathy leading to changes in his LV wall motion and systolic function and other objective findings such as his cardiac enzymes, findings compatible with CHF, etc. (8) Renal insufficiency: PLAN: He did have recent acute renal insufficiency. With diuresis his renal function has improved which may be compatible with a change of his LV systolic function and an element of CHF and cardiorenal syndrome. He will need to continue diuretic therapy with monitoring of his physical examination and his renal function. (9) HLD (hyperlipidemia): PLAN: He will continue risk factor evaluation care as deemed appropriate. (10) HTN (hypertension): PLAN: His blood pressure will need to be monitored with adjustment of his medicines as deemed appropriate Addt'l Comments The patient's case has been discussed at length with the patient, Dr. Bull, as well as with Dr. Hoang and Velasquez from a cardiovascular standpoint has participated and will be participating in the patient's care. This note was generated using a voice recognition system and there may be incorrect words, spelling or punctuation that were not noted when reviewing the office note prior to saving. Procedure Criteria Type of Procedure Procedure Type: Elective Elective Risks - COVID COVID Risk Discussion: The surgeon/proceduralist and patient have discussed in detail the risk of exposure to and/or potential harm posed by the COVID-19 virus with having a surgery/procedure at this time versus the risk of delaying the surgery/procedure. It is not possible to know either the risk of delaying the surgery or procedure or chance of getting an infection with perfect accuracy, but a joint decision was made between the patient and the surgeon/proceduralist to proceed at this time with the scheduled surgery/procedure as indicated on the consent form.
[2022-07-22 08:24] LABS: Hemoglobin A1c 6.1 % (3.8-5.6)
[2022-07-22] MEDS: Furosemide 500 MG in Empty Viaflex 50 mL 1 EACH CONT INF (09:14)
--- NOTE | 2022-07-22 09:26 | CASEMGMT ---
LISSA CM NOTE: Insurance review for hospitals In-network with [facility] Insurance if transfer is recommended is as follows: [facility], [place], [facility], [place], [place], [facility], [facility], [facility], [facility] and . Sukhdev MTZN RN CM
[2022-07-22] MEDS: HEPARIN/D5w 25,000 UNITS 25,000 UNITS/250 ML IV.SOLN. 15 UNITS CONT INF (10:25)
[2022-07-22] MEDS: Aspirin E.C. 81 MG Tablet 162 MG PO (10:54)
[2022-07-22] MEDS: Loratadine 10 MG Tablet PO (10:54)
[2022-07-22] MEDS: Metoprolol Tartrate 25 MG Tablet PO (10:54)
[2022-07-22] MEDS: Lisinopril 5 MG Tablet PO (10:55)
[2022-07-22] MEDS: amLODIPine 10 MG Tablet PO (10:55)
[2022-07-22] MEDS: Magnesium Chloride 64 MG Delay Rel.Tablet 128 MG PO (10:55)
--- NOTE | 2022-07-22 11:25 | CASEMGMT ---
RN CM FORK TRUCK DRIVER CM to room to meet with patient for initial transition planning/care coordination assessment. LISSA PEREA introduced self and role at [facility]. Pt voices understanding and consents to assessment at this time. Pt resting in bed in no distress at this time. Pt is A/O at this time and answers all questions appropriately. Care providers, pharmacy, and demographics verified/updated at this time. PCP:Dr Escalante Specialists: Dr Ring-cardiology Preferred [facility]acy: [facility] Insurance:[employer] Prescription Benefit: Yes Living Will/HPOA: States does not have LW or HCPOA . Interested in more information but states does not want to talk with SW at this time to complete paperwork, stating Probably not right now. Provided information on advanced directives and given Social Service rac card with number to call if chooses in the future to utilize [facility] social work for advanced directive completion. Educated patient that, if patient so chooses, can come back to [facility] and meet with a SW as an outpatient to complete health care advanced directives. Patient expresses understanding. LNOK: Sig other/girlfriend, Radha. Son, Jey. Pt has 2 other children as well. Living Arrangements: Lives w/Radha in 2-story home w/2 steps to enter. FFSU. Independent w/ADL's. Radha and pt share home tasks. Transportation: Pt states drives self and states no transportation concerns at this time. Radha also drives. DME: has the following DME: glucometer. Pt also has a walker from prior back surgery, but does not currently use. No home O2. Pt was provided with list of DME providers consistent with the patient's preferred geographic region, medical needs, and insurance network and made aware [facility] [place] affiliated w[place]. The pt's preferred provider is [employer]. Pt does not have a pulse ox. Pt states no need for further DME at this time. HHC/SNF: No hx of either. Pt denies need for OP therapy or HHC. Pt wishes to return home and states has no concerns with going home at time of discharge. CM to follow for home oxygen needs and any further discharge planning/needs. Pt voices no further concerns/needs at this time. Advised pt to ask for CM if any further questions/concerns/needs arise. Voices understanding. PLAN: Home w/support of sig other and discharge plans in place. Follow for possible need of home O2 @ d/c and pt to be given pulse ox if discharges home on O2. Sukhdev BSN RN CM
[2022-07-22 11:46] LABS: BNP,B-Type NATRIURETIC PEPTIDE 1230.7 pg/mL (0-100)
[2022-07-22 11:55] LABS: Procalcitonin 1.15 ng/mL (0.00-0.09)
--- NOTE | 2022-07-22 11:56 | PCM.PN.HOSP ---
Subjective Subjective Required some rescue BiPAP overnight. Now back down to 6 L nasal cannula. States he overall feels better than he did upon presentation and clinically looks better than he did yesterday when I admitted him. Still with significant shortness of breath. No marked cough at this time. Objective Data Objective Data Vital Signs: Vital Signs Temp Pulse Resp BP Pulse Ox O2 Del Method O2 Flow Rate 99.1 F 100 16 116/80 94 Nasal Cannula 6 07/22/22 10:42 07/22/22 10:54 07/22/22 10:42 07/22/22 10:42 07/22/22 10:42 07/22/22 10:42 07/22/22 10:42 FiO2 40 07/22/22 05:29 Oxygen Flow Rate (L/min) 6 Oxygen Delivery Method Nasal Cannula Weight: 100 kg Body Mass Index (BMI) 32.1 Intake & Output: Intake and Output for Last 24 Hours 07/20/22 07/21/22 07/22/22 23:59 23:59 23:59 Intake Total 207.1 / 207.1 142.9 / 142.9 Output Total 850 / 850 450 / 450 Balance -642.9 / -642.9 -307.1 / -307.1 Lab / Micro Data Result Diagrams: 07/22/22 03:56 07/22/22 03:56 Labs: Laboratory Results - last 24 hr 07/21/22 10:15: COVID-19 (CAM) Not Detected 07/21/22 10:40: PT 14.4, INR 1.2, APTT 32.0 07/21/22 13:10: Urine Color Yellow, Urine Clarity Clear, Urine pH 7.0, Ur Specific [place] 1.010, Urine Protein Negative, Urine Glucose (UA) 100 H, Urine Ketones Negative, Urine Occult Blood Negative, Urine Nitrite Negative, Urine Bilirubin Negative, Urine Urobilinogen Normal, Ur Leukocyte Esterase Negative, Urine RBC 0 SEEN, Urine WBC 0 SEEN, Ur Squamous Epith Cells 0 SEEN, Urine Bacteria 0 SEEN, Urine Mucus 0 SEEN 07/21/22 14:42: Troponin I High Sens 4564 H* 07/21/22 16:10: Troponin I High Sens 4914 H* 07/21/22 17:00: POC Glucose 212 H 07/21/22 19:00: APTT 49.4 H 07/22/22 03:56: Hemoglobin A1c 6.1 H 07/22/22 03:56: WBC 11.7 H, RBC 3.37 L, Hgb 11.4 L, Hct 36.0 L, MCV 106.8 H, MCH 33.8 H, MCHC 31.7 L, RDW Std Deviation 56.1 H, RDW Coeff of Mayi 14.4, Plt Count 199, MPV 10.9, Immature Gran % (Auto) 2.400 H, Neut % (Auto) 85.4 H, Lymph % (Auto) 5.3 L, [place] % (Auto) 6.3, Eos % (Auto) 0.3, Baso % (Auto) 0.3, Absolute Neuts (auto) 10.0 H, Absolute Lymphs (auto) 0.62 L, Nucleated RBC % 0.2 07/22/22 03:56: Sodium 138, Potassium 4.1, Chloride 103, Carbon Dioxide 25.0, Anion Gap 10, BUN 22 H, Creatinine 1.17, Estim Creat Clear Calc 68.46, Est GFR (MDRD) Af Amer 81, Est GFR (MDRD) Non-Af 67, BUN/Creatinine Ratio 18.8, Glucose 232 H, Calcium 9.1, Phosphorus 1.9 L, Magnesium 1.8, Total Bilirubin 1.60 H, AST 51 H, ALT 29, Alkaline Phosphatase 65, Total Protein 7.6, Albumin 3.0 L, Globulin 4.6 H, Albumin/Globulin Ratio 0.7 L, Triglycerides 139, Cholesterol 123, LDL Cholesterol 52, VLDL Cholesterol 28, HDL Cholesterol 43, TSH 1.60 07/22/22 03:56: APTT 34.0 07/22/22 04:53: POC Glucose 190 H 07/22/22 10:59: B-Natriuretic Peptide 1230.7 H 07/22/22 10:59: Procalcitonin 1.15 H Micro: Microbiology 07/21/22 14:05 Mucosa - Nasopharyngeal Respiratory Panel (PCR) - Final 07/21/22 15:20 Interface Orders Streptococcus pneumoniae Antigen (M - Final 07/21/22 15:20 Interface Orders Legionella Antigen - Final 07/21/22 10:30 Nasal Secretion SARS-CoV-2 & FLU Antigen (Rapid) - Final ABG Data ABG results: ABG 07/22/22 04:37 Specimen Type ART Sample Site L Radial pH 7.47 H Bicarbonate Actual 23.9 Total CO2 25 Base Excess 0 O2 Saturation 92 L ABG pCO2 32.8 L ABG pO2 60 L Chaz Test N/A O2 Delivery Device Cannula Liter Flow 6.0 Radiography Diagnostic Testing: Radiology Impression Chest CTA 07/21/22 11:37 IMPRESSION: Small bilateral pleural effusions with patchy infiltrates as described preferentially in the peripheral distribution. This is suggestive of Covid pneumonitis. Electronically Signed: Chapo Viramontes MD at 12:07 EDT , Echocardiogram 07/21/22 13:50 Interpretation Summary Normal LV size. Severe global left ventricular systolic dysfunction. The estimated ejection fraction is 20 %. Stage 3 diastolic dysfunction. Compared to previous study, the left ventricular systolic function has worsened.. Contrast injection was performed. Ordering Physician: Magaly Bull Referring Physician: Avery Escalante Performed By: Hyun Jean, [facility], RVT Chest X-Ray 07/22/22 03:29 IMPRESSION: Continued patchy bilateral airspace disease, with small pleural effusions. Findings consistent with pneumonia, without significant interval change. Electronically Signed: Juan Ramon Fields MD at 4:19 EDT , Chest X-Ray 07/22/22 07:39 IMPRESSION: Persistent bilateral patchy infiltrates worse in the left hemithorax although there has been some improvement as compared to prior study. Electronically Signed: Chapo Viramontes MD at 9:20 EDT , Physical Exam Const alert, oriented x3 and well nourished Constitutional Narrative: Obese, upper middle-aged white male, sitting up in bed, nursing at bedside, patient patient appears as if he is feeling somewhat better today however not at his baseline, very pleasant General Appearance: cooperative HEENT normocephalic and head/scalp atraumatic HEENT Narrative: [place] 3, no thrush Resp normal respiratory effort, no retractions and no use of accessory muscles Resp Narrative: Bibasilar crackles, no tachypnea today Auscultation: crackles; Negative for rhonchi or wheezes Cardio regular rhythm, S1 normal heart sound, S2 normal heart sound, no murmurs, no rub, no gallops and no clicks Cardio Narrative: Mild tachycardia-sinus GI normal to inspection, nondistended, normoactive bowel sounds, soft to palpation and non-tender Extremity no clubbing, cyanosis or edema Extremity Narrative: 2+ pedal pulses Neuro oriented x3, moves all extremities and no focal motor deficits Speech: speech normal Psych affect normal Psych Narrative: Properly and reactive Assessment & Plan Assessment/Plan (1) CHF (congestive heart failure): (2) Non-ST elevated myocardial infarction: (3) Acute respiratory failure with hypoxia: (4) Leukocytosis: (5) Fever: PLAN: Plan Acute hypoxic respiratory failure secondary to CHF-unknown type/viral syndrome -Patient with acute hypoxia having oxygen saturations of 81% on room air, tachycardia, tachypnea -Bilateral crackles remain on exam -Repeat chest x-ray this morning shows worsening bilateral infiltrates -Acquired rescue BiPAP overnight however has been weaned to 6 L nasal cannula this morning and is satting at 93 to 94% -COVID rapid negative--> PCR was negative -Respiratory viral panel is negative -Strep pneumo and Legionella antigens are negative -Coxsackievirus A and B antibodies pending -Hold antibiotics -Discontinue bolus Lasix and start drip at 20 mg/h -Daily weights -Accurate I's and O's -1500 cc fluid restriction -BNP ordered by pulmonary medicine and this is trending down -Continue salt restricted diet -Continue home metoprolol and lisinopril -Unclear if his CHF with new depressed EF is related to his grafts being compromised or a viral myocarditis -Further work-up is pending -Plan for cardiac cath once patient is stable from a respiratory standpoint -Pulmonary medicine consult NSTEMI -Type I versus type II--> unclear at this time -Patient with significant cardiac history having CABG in 2018 at [facility] by Dr. aMrko CRENSHAW to LAD/SVG to OM/SVG to left PDA -Not had any issues since his CABG -EKG shows sinus tachycardia with no ST-T wave changes consistent with acute ischemia, intervals are normal -Continue heparin drip -Has significant risk factors including DM-2,/HTN/HPL -Continue aspirin -Continue metoprolol--> increased dose slightly from 12.5 twice daily to 25 twice daily -Continue lisinopril -Cardiac enzymes have trended up -Check lipids/hemoglobin A1c -Echo from 05/19/2020 showed an EF of 50% with mild to moderate mitral annular calcification and no significant valvular disease with right ventricular systolic pressure of 26 mmHg ` -Repeat echocardiogram from 03/21/2022 shows severe global LV dysfunction with an EF of 20% and stage III diastolic dysfunction -Cardiology is following-appreciate input -Plan is for cardiac catheterization to assess grafts once patient is stable from a respiratory standpoint Hypophosphatemia Phosphorus bolus given -Recheck Phos level in a.m. Hyperlipidemia -Continue home statin -Lipid panel shows a total cholesterol of 123/LDL of 52/HDL of 43 indicating good cholesterol control Hypertension -Continue metoprolol but increase to 25 mg p.o. twice daily -Continue lisinopril 5 mill grams daily -Could discontinue amlodipine and lisinopril and add Entresto--> will monitor -Continue amlodipine 10 mg daily DM-2 -Most recent hemoglobin A1c was from 11/23/2021 and was 5.6--> A1c is slightly higher at 6.1 but still well controlled -Hold home metformin -Would likely benefit from SLG 2 inhibitor at discharge with EF of 20% -Continue sliding scale -Accu-Cheks as ordered JUAN -Baseline serum creatinine appears to be 0.8-1.0 -Is been a little bit higher recently -Serum creatinine trended down to 1.17 despite aggressive diuresis so therefore I do suspect he had cardiorenal issues with decreased perfusion related to his depressed EF -Monitor closely with diuresis -Avoid nephrotoxins Neuropathy/chronic pain -Continue Lyrica but decrease dose to 100 mg 3 times daily -Home dose is 200 mg 3 times daily however this is significantly higher than recommended max dose of 300 mg daily -Continue baclofen ED -Restart home medications at discharge History of alcohol use -Patient denies any daily or regularly use at this time -Dhruv he has a social drink every once in a while History of tobacco use -Uses chewing tobacco -We will provide nicotine patch if needed DVT prophylaxis -Heparin drip CODE STATUS -Full code is verified admission the emergency department Charges/Coding Visit Charges Inpatient E&M: 01466 Subs Hosp L2
[2022-07-22] MEDS: Insulin Lispro 100 UNIT/ML INSULN.PEN SC ×2 (12:09→17:50)
[2022-07-22 12:25] LABS: Bedside Glucose 232 mg/dL (74-106)
--- NOTE | 2022-07-22 12:46 | CON.PCM.CC_ITS ---
Assessment & Plan Assessment/Plan (1) Acute respiratory failure with hypoxia: PLAN: Plan RECOMMENDATIONS: 1. Continue BiPAP therapy with naps and nightly. 2. Wean supplemental oxygen to maintain saturations at or above 90%. 3. Continue fluid restriction and aggressive diuresis, as tolerated by hemodynamics and renal function. 4. Cardiac catheterization 5. Encourage incentive spirometer use and mobilize patient as tolerated. IMPRESSIONS: 1. Acute hypoxemic respiratory failure Most likely secondary to acute decompensated heart failure. While a viral etiology for the heart failure is a possibility, it would be prudent to rule out an ischemic etiology as well, especially in light of the patient's history of a CABG. However, cardiology would first like the patient's respiratory status to be optimized prior to catheterization. I would recommend continued attempts at diuresis as tolerated by hemodynamics and renal function. Continue BiPAP therapy with naps and nightly, if feasible. I do not see any additional ind ication for further pulmonary work-up or intervention at this time. 2. Acute decompensated heart failure/NSTEMI Continue primary medical management per cardiology recommendations, including diuresis as tolerated by hemodynamics and renal function. Recommend ischemic evaluation once stable from a respiratory perspective. 3. Acute kidney injury Likely cardiorenal in nature, as the patient's creatinine has actually improved with diuresis. Continue to monitor urine output. 4. History of smokeless tobacco dependency/chronic pain syndrome/diabetes mellitus/hypertension/hyperlipidemia Complicates care, management, recovery and prognosis. Continue home medications as indicated. This note was generated with [employer] dictation software. It may contain incorrect words, spelling, and punctuation that were not noted in checking the note before signing. HPI Consult Data Date of Consult: 07/23/22 HPI Narrative Reason for Consultation: Acute hypoxemic respiratory failure HPI Narrative: The patient is a 62-year-old male, with a history as outlined below, who presented to the emergency department on July 21 with generalized malaise and shortness of breath. The patient is currently followed in the cardiology clinic due to a history of coronary artery disease status post CABG. The patient is a lifelong non-smoker without any prior pulmonary history. He denied ever having been diagnosed with asthma. He is employed working as a [employer]. On presentation to the emergency department, the patient was noted to be afebrile and hemodynamically stable. Initial laboratory evaluation revealed a white blood cell count of 14,000. Chemistry profile was notable for a creatinine of 1.43. Total bili was elevated at 1.6. Initial troponin was increased to 3531 with an elevated BNP of 1600. Urine analysis was unremarkable. Rapid COVID testing was negative. Respiratory viral panel was negative. Strep and urine Legionella antigens were negative. CTA chest showed no evidence for pulmonary embolism, but did demonstrate patchy infiltrates bilaterally with small pleural effusions. Surface echocardiogram completed on July 21 demonstrated severe global LV systolic dysfunction with an ejection fraction of 20% and stage III diastolic dysfunction. Pulmonary artery systolic pressure was estimated to be 42 mmHg. 2 years ago, the patient had an echocardiogram completed which revealed an ejection fraction of 55%. The patient was admitted to the hospital and placed on the progressive care unit, where he has been management with intermittent use of BiPAP therapy along with volume optimization via Lasix. Cardiology is also following to assist with medical management. The patient does report ongoing shortness of breath and pain with deep inspiration. 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 Callous ulcer with fat layer exposed Cardiology follow-up encounter Cellulitis lft foot failed outpatient tx Cerebrovascular disease Chewing tobacco nicotine dependence Chronic skin ulcer with fat layer exposed Chronic ulcer of left foot with fat layer exposed CVA (cerebral vascular accident) Diabetes mellitus type 2 with complications Diabetic foot ulcer associated with type 2 diabetes mellitus Discoloration of skin of finger Environmental allergies Essential (primary) hypertension Finger osteomyelitis, right Frostbite of finger of right hand H/O stroke associated with blood clotting tendency Hammertoe of left foot Hammertoe of right foot History of frostbite HLD (hyperlipidemia) Hx of cardiovascular stress test Hx of echocardiogram Hx of edema Hypertension Insulin dependent diabetes mellitus Leg cramps Leg pain Neuropathy Non-compliance Non-healing surgical wound Nonhealing nonsurgical wound with fat layer exposed NSTEMI (non-ST elevated myocardial infarction) (~03/2018) Old myocardial infarction Other specified peripheral vascular diseases Segmental and somatic dysfunction of cervical region Segmental and somatic dysfunction of lumbar region Segmental and somatic dysfunction of thoracic region Skin ulcer of finger with fat layer exposed Syncope Thoracic neuritis Ulcer of right foot with fat layer exposed Xerosis cutis Xerosis of skin Home Medications biotin 1 mg tablet 1 mg PO DAILY general health 04/01/18 [History Last Taken 03/26/20] desonide 0.05 % topical cream 1 applic topical BID PRN Dry Skin 04/01/18 [History Last Taken 03/30/18] insulin lispro 100 unit/mL subcutaneous pen See Protocol SQ TIDCM diabetes 04/01/18 [History Last Taken 03/26/20] ketoconazole 2 % topical cream 1 applic topical DAILY PRN Dry Skin 04/01/18 [History Last Taken 03/30/18] metoprolol tartrate 25 mg tablet 12.5 mg PO BID heart 07/19/18 [History Last Taken 12/01/21] albuterol sulfate 90 mcg/actuation aerosol inhaler (ProAir HFA) 2 puff inhalation Q4H PRN Sob &/Or Wheezing 08/13/19 [History Last Taken Unknown] amlodipine 10 mg tablet 10 mg PO DAILY blood pressure 08/13/19 [History Last Taken 12/01/21] cetirizine 10 mg tablet 10 mg PO DAILY allergies 08/13/19 [History Last Taken 03/26/20] simvastatin 10 mg tablet 10 mg PO QHS cholesterol 08/13/19 [History Last Taken 03/25/20] cyanocobalamin (vitamin B-12) 1,000 mcg/mL injection solution 1,000 mcg IM Q30D supplement 08/22/19 [History Last Taken 03/26/20] aspirin 81 mg tablet,delayed release 162 mg PO DAILY blood flow 10/12/19 [History Last Taken 11/25/21] lisinopril 5 mg tablet 5 mg PO QDAY blood pressure 03/26/20 [History Last Taken 12/01/21] metformin 500 mg tablet 500 mg PO BID DIABETES 10/27/21 [History Last Taken Unknown] baclofen 20 mg tablet 20 mg PO TID PAIN 11/17/21 [History Last Taken Unknown] cholecalciferol (vitamin D3) 125 mcg (5,000 unit) tablet (Vitamin D3) 125 mcg PO DAILY SUPPLEMENT 11/17/21 [History Last Taken Unknown] coenzyme Q10 100 mg tablet 100 mg PO QHS SUPPLEMENT 11/17/21 [History Last Taken Unknown] montelukast 10 mg tablet (Singulair) 10 mg PO QHS LUNGS 11/17/21 [History Last Taken Unknown] omega-3 fatty acids 1,000 mg PO DAILY SUPPLEMENT 11/17/21 [History Last Taken Unknown] acetaminophen 500 mg tablet 500 mg PO TID PAIN 04/26/22 [History Last Taken Unknown] ammonium lactate 12 % lotion 1 applic topical PRN PRN SKIN 04/26/22 [History Last Taken Unknown] docusate sodium 100 mg capsule 100 mg PO BID PRN Constipation 04/26/22 [History Last Taken Unknown] levomefolate Ca 3 mg-B6 35 mg-meB12 2 mg-algal oil 90.314 mg capsule (Foltanx RF) 1 cap PO BID 04/26/22 [History Last Taken Unknown] magnesium oxide 500 mg PO DAILY 04/26/22 [History Last Taken Unknown] pregabalin 100 mg capsule (Lyrica) 200 mg PO TID PAIN 04/26/22 [History Last Taken Unknown] turmeric root extract 500 mg tablet 1,000 mg PO DAILY 04/26/22 [History Last Taken Unknown] vardenafil 20 mg tablet 20 mg PO DAILY PRN ERECTION 04/26/22 [History Last Taken Unknown] Allergy/AdvReac Type Severity Reaction Status Date / Time [id number] Reductase AdvReac Severe myalgia Verified 07/21/22 10:10 Inhibitor atorvastatin AdvReac Unknown Verified 07/21/22 10:10 Family History Father Diabetes Heart disease Hypertension Grandfather Diabetes Heart disease Grandmother Diabetes Mother Diabetes Hypertension Other Arthritis Surgical History Amputation toe H/O three vessel coronary artery bypass (~04/12/18) History of hand surgery Hx of cardiac catheterization Hx of elbow surgery Hx of left knee surgery Status post finger joint fusion Social History household members: spouse housing: house Smoking Status: Former smoker Smokeless tobacco user: chewing tobacco second hand exposure: Yes alcohol intake: current alcohol intake frequency: holidays/special occasions only Alcohol type: beer substance use type: does not use additional social history: Does Take Aspirin Does not take Ibuprofen ROS ROS Narrative 10 systems were reviewed with pertinent positives as noted in the HPI above. Physical Exam Const alert and no apparent distress Constitutional Narrative: Sitting upright in bed with at the bedside. General Appearance: cooperative Nutritional Appearance: obese HEENT normocephalic, head/scalp atraumatic and moist oral mucous membranes Eyes PERRL, EOMs intact bilaterally and conjunctivae normal Neck supple General: trachea midline Chest inspection of chest normal Resp normal respiratory effort Resp Narrative: Bibasilar crackles present Cardio regular rate, regular rhythm and no murmurs GI normal to inspection, nondistended, normoactive bowel sounds Extremity no clubbing, cyanosis or edema Skin no rashes or lesions noted Neuro oriented x3, CN's II-XII intact bilaterally, moves all extremities and no focal motor deficits Psych cooperative and affect normal Lab / Micro Data Result Diagrams: 07/23/22 04:11 07/23/22 04:11 Labs: Laboratory Results - last 24 hr 07/21/22 10:15: COVID-19 (CAM) Not Detected 07/21/22 10:40: PT 14.4, INR 1.2, APTT 32.0 07/21/22 13:10: Urine Color Yellow, Urine Clarity Clear, Urine pH 7.0, Ur Specific [place] 1.010, Urine Protein Negative, Urine Glucose (UA) 100 H, Urine Ketones Negative, Urine Occult Blood Negative, Urine Nitrite Negative, Urine Bilirubin Negative, Urine Urobilinogen Normal, Ur Leukocyte Esterase Negative, Urine RBC 0 SEEN, Urine WBC 0 SEEN, Ur Squamous Epith Cells 0 SEEN, Urine Bacteria 0 SEEN, Urine Mucus 0 SEEN 07/21/22 14:42: Troponin I High Sens 4564 H* 07/21/22 16:10: Troponin I High Sens 4914 H* 07/21/22 17:00: POC Glucose 212 H 07/21/22 19:00: APTT 49.4 H 07/22/22 03:56: Hemoglobin A1c 6.1 H 07/22/22 03:56: WBC 11.7 H, RBC 3.37 L, Hgb 11.4 L, Hct 36.0 L, MCV 106.8 H, MCH 33.8 H, MCHC 31.7 L, RDW Std Deviation 56.1 H, RDW Coeff of Mayi 14.4, Plt Count 199, MPV 10.9, Immature Gran % (Auto) 2.400 H, Neut % (Auto) 85.4 H, Lymph % (Auto) 5.3 L, [place] % (Auto) 6.3, Eos % (Auto) 0.3, Baso % (Auto) 0.3, Absolute Neuts (auto) 10.0 H, Absolute Lymphs (auto) 0.62 L, Nucleated RBC % 0.2 07/22/22 03:56: Sodium 138, Potassium 4.1, Chloride 103, Carbon Dioxide 25.0, Anion Gap 10, BUN 22 H, Creatinine 1.17, Estim Creat Clear Calc 68.46, Est GFR (MDRD) Af Amer 81, Est GFR (MDRD) Non-Af 67, BUN/Creatinine Ratio 18.8, Glucose 232 H, Calcium 9.1, Phosphorus 1.9 L, Magnesium 1.8, Total Bilirubin 1.60 H, AST 51 H, ALT 29, Alkaline Phosphatase 65, Total Protein 7.6, Albumin 3.0 L, Globulin 4.6 H, Albumin/Globulin Ratio 0.7 L, Triglycerides 139, Cholesterol 123, LDL Cholesterol 52, VLDL Cholesterol 28, HDL Cholesterol 43, TSH 1.60 07/22/22 03:56: APTT 34.0 07/22/22 04:53: POC Glucose 190 H 07/22/22 10:59: B-Natriuretic Peptide 1230.7 H 07/22/22 10:59: Procalcitonin 1.15 H 07/22/22 12:04: POC Glucose 232 H Micro: Microbiology 07/21/22 14:05 Mucosa - Nasopharyngeal Respiratory Panel (PCR) - Final 07/21/22 15:20 Interface Orders Streptococcus pneumoniae Antigen (M - Final 07/21/22 15:20 Interface Orders Legionella Antigen - Final 07/21/22 10:30 Nasal Secretion SARS-CoV-2 & FLU Antigen (Rapid) - Final ABG Data ABG results: ABG 07/22/22 04:37 Specimen Type ART Sample Site L Radial pH 7.47 H Bicarbonate Actual 23.9 Total CO2 25 Base Excess 0 O2 Saturation 92 L ABG pCO2 32.8 L ABG pO2 60 L Chaz Test N/A O2 Delivery Device Cannula Liter Flow 6.0 Radiology Impression Echocardiogram 07/21/22 13:50 Interpretation Summary Normal LV size. Severe global left ventricular systolic dysfunction. The estimated ejection fraction is 20 %. Stage 3 diastolic dysfunction. Compared to previous study, the left ventricular systolic function has worsened.. Contrast injection was performed. Ordering Physician: Magaly Bull Referring Physician: Avery Escalante Performed By: Hyun Jean RDCS, RVT Chest X-Ray 07/22/22 03:29 IMPRESSION: Continued patchy bilateral airspace disease, with small pleural effusions. Findings consistent with pneumonia, without significant interval change. Electronically Signed: Juan Ramon Fields MD at 4:19 EDT , Chest X-Ray 07/22/22 07:39 IMPRESSION: Persistent bilateral patchy infiltrates worse in the left hemithorax although there has been some improvement as compared to prior study. Electronically Signed: Chapo Viramontes MD at 9:20 EDT , Charges/Coding Visit Charges Inpatient E&M: 52222 Init Hosp L3
--- NOTE | 2022-07-22 14:19 | CASEMGMT ---
LISSA PEREA note: Pt meets criteria for Palliative referral per screening tool. Per Dr Bull, she is not agreeable to Palliative referral at this time. Sukhdev MTZN RN CM
[2022-07-22] MEDS: Acetaminophen 500 MG Tablet PO ×2 (14:47→22:27)
[2022-07-22] MEDS: Baclofen 10 MG Tablet 20 MG PO ×2 (14:47→22:28)
[2022-07-22] MEDS: Pregabalin 50 MG Capsule 100 MG PO ×2 (14:48→22:17)
[2022-07-22 14:56] LABS: Partial Thromboplast Time 34.8 Seconds (24.1-36.2)
[2022-07-22] MEDS: Heparin Injection (Vial) 5,000 UNIT/ML VIAL IV ×2 (15:07→22:20)
[2022-07-22 18:11] LABS: Bedside Glucose 218 mg/dL (74-106)
[2022-07-22 21:29] LABS: Partial Thromboplast Time 40.1 Seconds (24.1-36.2)
[2022-07-22] MEDS: Docusate Sodium 100 MG Capsule PO (22:17)
[2022-07-22] MEDS: HEPARIN/D5w 25,000 UNITS 25,000 UNITS/250 ML IV.SOLN. 19 UNITS CONT INF (22:19)
[2022-07-22] MEDS: Montelukast 10 MG Tablet PO (22:28)
[2022-07-22] MEDS: Simvastatin 10 MG Tablet PO (22:30)
[2022-07-23] VITALS (21 sets, daily range): BP systolic 91–133; BP diastolic 59–85; PULSE 78–95; RESP 12–18; TEMP 36.2–36.6; O2SAT 96–100
[2022-07-23 04:26] LABS: Absolute Lymphocyte Count 1.53 X10^3/uL (0.83-4.51); Absolute Neutrophil Count 5.4 X10^3/uL (2.0-7.7); Basophil# 0.05 X10^3/uL; Basophil% 0.6 % (0-1); Eosinophil# 0.29 X10^3/uL; Eosinophils% 3.5 % (0-5); Hematocrit 35.4 % (40-54); Lymphocyte # 1.53 X10^3/ul (0.83-4.51); Lymphocyte % 18.7 % (19-41); Mean Corp Hgb Conc 31.1 g/dL (32-36); Mean Corpuscular Hgb 33.4 pg (27.0-32.0); Mean Corpuscular Volume 107.6 fL (80-94); Mean Platelet Vol. 11.1 fl (6.2-12.0); Monocyte# 0.75 X10^3/uL; Monocyte% 9.2 % (0-10); NRBC Flagged by Analyzer 0 % (0-5); Neutrophil # 5.39 X10^3/uL (2.7-7.7); Neutrophil % 65.9 % (47-70); Platelet Count 196 K/mm3 (150-450); RBC Distribution Width CV 14.2 % (11.6-14.6); RBC Distribution Width SD 55.8 fl (35.1-43.9); Red Blood Count 3.29 M/mm3 (4.6-6.2); White Blood Count 8.2 K/mm3 (4.4-11.0)
[2022-07-23 04:44] LABS: Partial Thromboplast Time 40.6 Seconds (24.1-36.2)
[2022-07-23 05:29] LABS: ALB/GLOB Ratio 0.5 RATIO (0.9-2.4); AST(SGOT) 39 U/L (15-37); Alanine Aminotransfer ALT/SGPT 27 U/L (16-61); Albumin, Serum 2.5 g/dL (3.2-5.0); Alkaline Phosphatase 59 U/L (45-117); Anion Gap 9 (5-15); BUN 36 mg/dL (7-18); BUN/Creat Ratio 27.9 RATIO (10-20); Calcium,Total 8.6 mg/dL (8.5-10.1); Chloride 103 mmol/L (98-107); Creatinine, Serum 1.29 mg/dL (0.70-1.30); EST Glomerular Filtration Rate 60 mL/min (>60); Est Glom Filt Rate - Afr Amer 73 mL/min (>60); Estimated Creatinine Clearance 62.09 ml/min; Glucose 202 mg/dL (74-106); Magnesium 1.7 mg/dL (1.6-2.6); Phosphorus 3.1 mg/dL (2.5-4.9); Potassium 3.3 mmol/L (3.5-5.1); Protein, Total 7.5 g/dL (6.4-8.2); Sodium Level 139 mmol/L (136-145)
[2022-07-23] MEDS: Heparin Injection (Vial) 5,000 UNIT/ML VIAL IV (05:52)
[2022-07-23] MEDS: 0.9% Saline Lock 10 ML Syringe IV (05:54)
[2022-07-23] MEDS: Acetaminophen 500 MG Tablet PO ×3 (05:55→22:36)
[2022-07-23] MEDS: Baclofen 10 MG Tablet 20 MG PO ×3 (05:56→22:34)
[2022-07-23] MEDS: Pregabalin 50 MG Capsule 100 MG PO ×3 (06:02→22:36)
[2022-07-23] MEDS: Furosemide 500 MG in Empty Viaflex 50 mL 1 EACH CONT INF (07:01)
[2022-07-23] MEDS: Aspirin E.C. 81 MG Tablet 162 MG PO (08:02)
[2022-07-23] MEDS: Potassium Chloride Oral Tablet 20 MEQ 60 MEQ PO (08:02)
--- NOTE | 2022-07-23 08:24 | PN.CC_ITS ---
Assessment & Plan Assessment/Plan (1) Acute respiratory failure with hypoxia: PLAN: Plan RECOMMENDATIONS: 1. Continue BiPAP therapy with naps and nightly. 2. Wean supplemental oxygen to maintain saturations at or above 90%. 3. Continue fluid restriction and aggressive diuresis, as tolerated by hemodynamics and renal function. 4. Cardiac catheterization when appropriate. 5. Encourage incentive spirometer use and mobilize patient as tolerated. IMPRESSIONS: 1. Acute hypoxemic respiratory failure Most likely secondary to acute decompensated heart failure. While a viral etiology for the heart failure is a possibility, it would be prudent to rule out an ischemic etiology as well, especially in light of the patient's history of a CABG. However, cardiology would first like the patient's respiratory status to be optimized prior to catheterization. I would recommend continued attempts at diuresis as tolerated by hemodynamics and renal function. Continue BiPAP therapy with naps and nightly, if feasible. I do not see any additional indication for further pulmonary work-up or intervention at this time. 2. Acute decompensated heart failure/NSTEMI Continue primary medical management per cardiology recommendations, including diuresis as tolerated by hemodynamics and renal function. Recommend ischemic evaluation once stable from a respiratory perspective. 3. Acute kidney injury Likely cardiorenal in nature, as the patient's creatinine has actually improved with diuresis. Continue to monitor urine output. 4. History of smokeless tobacco dependency/chronic pain syndrome/diabetes mellitus/hypertension/hyperlipidemia Complicates care, management, recovery and prognosis. Continue home medications as indicated. This note was generated with [employer] dictation software. It may contain incorrect words, spelling, and punctuation that were not noted in checking the note before signing. Subjective Subjective The patient was seen and examined at the bedside this morning. Events from the last 24 hours have been reviewed. The patient is currently afebrile, hemodynamically stable and maintaining appropriate oxygen saturations on 2 L/min via nasal cannula. The patient is currently documented to be overall net -1.9 L for the hospitalization. Potassium is low at 3.3 with a normal creatinine. Objective Data Objective Data The patient's most recent lab work, culture data and imaging studies have all been personally reviewed. Surface echocardiogram demonstrated normal LV size with severe global LV systolic dysfunction and an ejection fraction of 20%, along with stage III diastolic dysfunction. Pulmonary artery systolic pressure was estimated to be 42 mmHg. Vital Signs: Vital Signs Temp Pulse Resp BP Pulse Ox O2 Del Method O2 Flow Rate 97.4 F L 78 16 91/59 L 99 Nasal Cannula 2 07/23/22 07:55 07/23/22 07:55 07/23/22 07:55 07/23/22 07:55 07/23/22 07:55 07/23/22 07:55 07/23/22 07:55 FiO2 35 07/23/22 04:00 Oxygen Flow Rate (L/min) 2 Oxygen Delivery Method Nasal Cannula Weight: 217 lb 13.067 oz Body Mass Index (BMI) 32.1 Intake & Output: Intake and Output for Last 24 Hours 07/21/22 07/22/22 07/23/22 23:59 23:59 23:59 Intake Total 207.1 / 207.1 1493.67 / 1493.67 165.80 / 165.80 Output Total 850 / 850 1250 / 1975 1675 / 1675 Balance -642.9 / -642.9 243.67 / -481.33 -1509.20 / -1509.20 Lab / Micro Data Attestation: I reviewed the patient's lab results. Result Diagrams: 07/23/22 04:11 07/23/22 04:11 Labs: Laboratory Results - last 24 hr 07/22/22 03:56: Hemoglobin A1c 6.1 H 07/22/22 10:59: B-Natriuretic Peptide 1230.7 H 07/22/22 10:59: Procalcitonin 1.15 H 07/22/22 12:04: POC Glucose 232 H 07/22/22 14:05: APTT 34.8 07/22/22 17:48: POC Glucose 218 H 07/22/22 21:09: APTT 40.1 H 07/23/22 04:11: WBC 8.2, RBC 3.29 L, Hgb 11.0 L, Hct 35.4 L, MCV 107.6 H, MCH 33.4 H, MCHC 31.1 L, RDW Std Deviation 55.8 H, RDW Coeff of Mayi 14.2, Plt Count 196, MPV 11.1, Immature Gran % (Auto) 2.100 H, Neut % (Auto) 65.9, Lymph % (Auto) 18.7 L, Richardson % (Auto) 9.2, Eos % (Auto) 3.5, Baso % (Auto) 0.6, Absolute Neuts (auto) 5.4, Absolute Lymphs (auto) 1.53, Nucleated RBC % 0 07/23/22 04:11: Sodium 139, Potassium 3.3 L, Chloride 103, Carbon Dioxide 27.0, Anion Gap 9, BUN 36 H, Creatinine 1.29, Estim Creat Clear Calc 62.09, Est GFR (MDRD) Af Amer 73, Est GFR (MDRD) Non-Af 60, BUN/Creatinine Ratio 27.9 H, Glucose 202 H, Calcium 8.6, Phosphorus 3.1, Magnesium 1.7, Total Bilirubin 1.00, AST 39 H, ALT 27, Alkaline Phosphatase 59, Total Protein 7.5, Albumin 2.5 L, Globulin 5.0 H, Albumin/Globulin Ratio 0.5 L 07/23/22 04:11: APTT 40.6 H Micro: Microbiology 07/21/22 10:50 Blood Culture (Wb) - Left Hand Blood Culture - Preliminary No growth in 48 hours. 07/21/22 10:40 Blood Culture (Wb) - Anticubital Right Blood Culture - Preliminary No growth in 48 hours. 07/21/22 14:05 Mucosa - Nasopharyngeal Respiratory Panel (PCR) - Final 07/21/22 15:20 Interface Orders Streptococcus pneumoniae Antigen (M - Final 07/21/22 15:20 Interface Orders Legionella Antigen - Final 07/21/22 10:30 Nasal Secretion SARS-CoV-2 & FLU Antigen (Rapid) - Final Radiography Diagnostic Testing: Radiology Impression Chest X-Ray 07/22/22 07:39 IMPRESSION: Persistent bilateral patchy infiltrates worse in the left hemithorax although there has been some improvement as compared to prior study. Electronically Signed: Chapo Viramontes MD at 9:20 EDT , Physical Exam Const alert and no apparent distress General Appearance: cooperative Nutritional Appearance: obese HEENT normocephalic, head/scalp atraumatic and moist oral mucous membranes Eyes PERRL, EOMs intact bilaterally and conjunctivae normal Neck supple General: trachea midline Chest inspection of chest normal Resp normal respiratory effort Resp Narrative: Bibasilar crackles Cardio regular rate, regular rhythm and no murmurs GI normal to inspection, nondistended, normoactive bowel sounds Extremity no clubbing, cyanosis or edema Skin no rashes or lesions noted Neuro oriented x3, CN's II-XII intact bilaterally, moves all extremities and no focal motor deficits Psych cooperative and affect normal Charges/Coding Visit Charges Inpatient E&M: 06523 Subs Hosp L2
--- NOTE | 2022-07-23 11:54 | CL.D_ITS ---
Patient Name: RICK GEORGE Study Date: 07/23/2022 Performing: Aidan Eng MD Ht: 70 inches 177.8 cm : 1960 Wt: 218.1 lbs 98.8 kg Age: 62 Gender: male BSA: 2.16 Amended PROCEDURE(S) PERFORMED DC04-(59034)LHC/COR/CABG CLINICAL PROFILE AND INDICATIONS Indications: ACS > 24 hrs Heart Failure: NYHA Class: 4, Newly Diagnosed: Yes, Heart Failure Type: Systolic CAD Presentations: Other: Dyspnea CONCLUSIONS 80% Prox LAD, 80% Mid LAD, 100% distal Mid LAD, MACK to LAD patent but distal to anastomosis, distal LAD 100% heavily calcified 100% prox LCX. SVG to OM patent 100% Prox RCA, SVG to RPDA patent. RECOMMENDATIONS Medical therapy DESCRIPTION OF PROCEDURE The patient arrived to the procedure lab. The risks and benefits of the procedure as well as a full description of our services here and current unavailability of surgical backup were fully explained to the patient and/or their significant other prior to the catheterization. The Timeout was completed, verifying the correct patient and procedure. The patient's procedural site was prepped and draped in the usual fashion. Local anesthetic was given subcutaneously to right groin region with Lidocaine 2%. Using a modified Seldinger technique, and ultrasound guidance, Left Coronary Artery selective angiography was performed in multiple views using a 6 Fr. JL4 catheter. Right Coronary Artery selective angiography was then performed in multiple views using a 6 Fr. JR 4 catheter. Left Ventriculography was performed in LYON projection using a 6 Fr. JR4. LV to AO pullback pressures were then recorded. Saphenous Vein graft to the OM 1 selective angiography was performed in multiple views using a 6 Fr. JR 4 catheter. Saphenous Vein graft to the RPDA selective angiography was performed in multiple views using a 5 Fr. MPA 2 catheter. Left internal mammary artery graft to the LAD selective angiography was performed in multiple views using a 5 Fr. IM catheter.The arterial sheath was pulled and a Perclose closure device was deployed for hemostasis CORONARY ANGIOGRAPHY DOMINANCE: Right Dominant LEFT HEART ASSESSMENT LVEDP: 5 mmHg LEFT ANTERIOR DESCENDING ARTERY: LAD: Calcified 80% Proximal lesion in LAD Calcified 80% Mid lesion in LAD Calcified 100% Mid lesion in LAD CIRCUMFLEX ARTERY: CIRCUMFLEX: Calcified 100% Proximal lesion in Circumflex RAMUS: Tubular 100% Ostial lesion in Ramus RIGHT CORONARY ARTERY: RCA: Calcified 100% Proximal lesion in RCA GRAFTS: SVG Graft to Right PDA MCAK Graft to LAD SVG Graft to MARG1 COLLATERAL FLOW: Collateral flow from MARG1 to RAMUS Collateral flow from MARG1 to RCA Collateral flow from Right PDA to 3rd OM COMPLICATIONS No Complications PROCEDURE MEDICATIONS Versed 2 mg IV Fentanyl 50 mcg IV Fentanyl 50 mcg IV Versed 1 mg IV Versed 1 mg IV Oxygen: 2 L/min via nasal cannula Lasix 40 mg IV 07/23/2022 11:07:13 Nitro Tab 0.4 mg SL 07/23/2022 11:05:27 SUMMARY OF HEMODYNAMIC DATA Time AIR REST ECG 10:35:22 AO 116/72 (91) SA 10:49:29 LV 141/-5, 35 10:52:34 LV 136/-7, 30 10:52:41 LVp 140/-5, 29 10:52:47 AOp 121/63 (87) 10:52:52 AIR REST 11:21:43 Signed By Aidan Eng MD On 07/23/2022 11:54:07 Aidan Eng MD
--- NOTE | 2022-07-23 12:53 | PCM.PN.HOSP ---
Subjective Subjective Patient states he is feeling better today. Oxygen has been weaned to 2 to 3 L. He still having some intermittent cough and some malaise but overall much improved. Objective Data Objective Data Vital Signs: Vital Signs Temp Pulse Resp BP Pulse Ox O2 Del Method O2 Flow Rate 97.4 F L 89 15 133/76 H 97 Nasal Cannula 2 07/23/22 10:00 07/23/22 12:30 07/23/22 12:30 07/23/22 12:30 07/23/22 12:30 07/23/22 12:30 07/23/22 12:30 FiO2 35 07/23/22 10:00 Oxygen Flow Rate (L/min) 2 Oxygen Delivery Method Nasal Cannula Weight: 98.8 kg Body Mass Index (BMI) 32.1 Intake & Output: Intake and Output for Last 24 Hours 07/21/22 07/22/22 07/23/22 23:59 23:59 23:59 Intake Total 207.1 / 207.1 1493.67 / 1493.67 251.55 / 251.55 Output Total 850 / 850 1250 / 1975 1675 / 1675 Balance -642.9 / -642.9 243.67 / -481.33 -1423.45 / -1423.45 Lab / Micro Data Result Diagrams: 07/23/22 04:11 07/23/22 04:11 Labs: Laboratory Results - last 24 hr 07/22/22 14:05: APTT 34.8 07/22/22 17:48: POC Glucose 218 H 07/22/22 21:09: APTT 40.1 H 07/23/22 04:11: WBC 8.2, RBC 3.29 L, Hgb 11.0 L, Hct 35.4 L, MCV 107.6 H, MCH 33.4 H, MCHC 31.1 L, RDW Std Deviation 55.8 H, RDW Coeff of Mayi 14.2, Plt Count 196, MPV 11.1, Immature Gran % (Auto) 2.100 H, Neut % (Auto) 65.9, Lymph % (Auto) 18.7 L, [place] % (Auto) 9.2, Eos % (Auto) 3.5, Baso % (Auto) 0.6, Absolute Neuts (auto) 5.4, Absolute Lymphs (auto) 1.53, Nucleated RBC % 0 07/23/22 04:11: Sodium 139, Potassium 3.3 L, Chloride 103, Carbon Dioxide 27.0, Anion Gap 9, BUN 36 H, Creatinine 1.29, Estim Creat Clear Calc 62.09, Est GFR (MDRD) Af Amer 73, Est GFR (MDRD) Non-Af 60, BUN/Creatinine Ratio 27.9 H, Glucose 202 H, Calcium 8.6, Phosphorus 3.1, Magnesium 1.7, Total Bilirubin 1.00, AST 39 H, ALT 27, Alkaline Phosphatase 59, Total Protein 7.5, Albumin 2.5 L, Globulin 5.0 H, Albumin/Globulin Ratio 0.5 L 07/23/22 04:11: APTT 40.6 H Micro: Microbiology 07/21/22 10:50 Blood Culture (Wb) - Left Hand Blood Culture - Preliminary No growth in 48 hours. 07/21/22 10:40 Blood Culture (Wb) - Anticubital Right Blood Culture - Preliminary No growth in 48 hours. 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, patient looks much improved compared to admission, very pleasant General Appearance: cooperative HEENT normocephalic and head/scalp atraumatic Eyes PERRL, EOMs intact bilaterally and conjunctivae normal Eyes Narrative: No scleral icterus Neck no lymphadenopathy, supple, no JVD and no carotid bruits Neck Narrative: Trachea midline, no thyroid enlargement Resp normal respiratory effort, no retractions and no use of accessory muscles Resp Narrative: Few scattered bibasilar crackles however overall significantly improved Auscultation: crackles; Negative for rhonchi or wheezes Cardio regular rate, regular rhythm, S1 normal heart sound, S2 normal heart sound, no murmurs, no rub, no gallops and no clicks GI normal to inspection, nondistended, normoactive bowel sounds, soft to palpation and non-tender Extremity no clubbing, cyanosis or edema Extremity Narrative: 2+ pedal pulses Neuro oriented x3, CN's II-XII intact bilaterally, moves all extremities and no focal motor deficits Neuro Narrative: Bilateral lower extremity distal neuropathy with decreased sensation Speech: speech normal Psych affect normal Assessment & Plan Assessment/Plan (1) CHF (congestive heart failure): (2) Non-ST elevated myocardial infarction: (3) Acute respiratory failure with hypoxia: (4) Leukocytosis: (5) Fever: (6) Myocarditis: (7) Hypokalemia: PLAN: Plan Acute hypoxic respiratory failure secondary to 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 -Patient with acute hypoxia having oxygen saturations of 81% on room air, tachycardia, tachypnea upon presentation -Bilateral crackles remain on exam but overall much improved -Patient did wear BiPAP again overnight however oxygen requirement has dropped to 2 L with an oxygen saturation of 97 to 98% -COVID rapid negative--> PCR was negative -Respiratory viral panel is negative -Strep pneumo and Legionella antigens are negative -Coxsackievirus A and B antibodies pending -Hold antibiotics -We will discontinue Lasix drip and go back to bolus insulin dosing -Daily weights -Accurate I's and O's -1500 cc fluid restriction -BNP ordered by pulmonary medicine and this is trending down -Continue salt restricted diet -Continue home metoprolol and lisinopril -Unclear if his CHF with new depressed EF is related to his grafts being compromised or a viral myocarditis -Further work-up is pending -Plan for cardiac cath once patient is stable from a respiratory standpoint -Pulmonary medicine following-appreciate input NSTEMI secondary to suspected myocarditis -NSTEMI type II -Respiratory viral panel is negative -Coxsackie antibodies/titers are pending -Discontinue heparin drip -Continue aspirin -Continue metoprolol, discontinue lisinopril and start Entresto -Echo from 05/19/2020 showed an EF of 50% with mild to moderate mitral annular calcification and no significant valvular disease with right ventricular systolic pressure of 26 mmHg -Repeat echocardiogram from 03/21/2022 shows severe global LV dysfunction with an EF of 20% and stage III diastolic dysfunction -Cardiology is following-appreciate input 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 potassium given -Repeat in a.m. Hypophosphatemia -Resolved CAD status post CABG x3 -Patient with significant cardiac history having CABG in [address] Marko CRENSHAW to LAD/SVG to OM/SVG to left PDA -Not had any issues since his CABG -Cardiac catheterization done on 07/23/2022 shows patent grafts x3 -Continue aspirin -See above Hyperlipidemia -Continue home statin -Lipid panel shows a total cholesterol of 123/LDL of 52/HDL of 43 indicating good cholesterol control Hypertension -Continue metoprolol but increase to 25 mg p.o. twice daily -Continue lisinopril and start Entresto in its place -Continue amlodipine 10 mg daily DM-2 -Most recent hemoglobin A1c was from 11/23/2021 and was 5.6--> A1c is slightly higher at 6.1 but still well controlled -Hold home metformin and will likely need to discontinue on discharge -Start SLGP 2 inhibitor with Jardiance 10 mg daily with heart failure -Continue sliding scale -Accu-Cheks as ordered JUAN -Baseline serum creatinine appears to be 0.8-1.0 -Is been a little bit higher recently -Serum creatinine stable however BUN is trending up slightly therefore discontinue Lasix drip and go to bolus Lasix -Monitor closely with diuresis -Avoid nephrotoxins Neuropathy/chronic pain -Continue Lyrica but decrease dose to 100 mg 3 times daily -Home dose is 200 mg 3 times daily however this is significantly higher than recommended max dose of 300 mg daily -Continue baclofen ED -Restart home medications at discharge History of alcohol use -Patient denies any daily or regularly use at this time -Dhruv he has a social drink every once in a while History of tobacco use -Uses chewing tobacco -We will provide nicotine patch if needed DVT prophylaxis -Heparin drip CODE STATUS -Full code is verified admission the emergency department Charges/Coding Visit Charges Inpatient E&M: 19374 [facility] Hosp L3
[2022-07-23] MEDS: Magnesium Chloride 64 MG Delay Rel.Tablet 128 MG PO (14:56)
[2022-07-23] MEDS: Loratadine 10 MG Tablet PO (14:56)
[2022-07-23] MEDS: amLODIPine 10 MG Tablet PO (14:56)
[2022-07-23] MEDS: Insulin Lispro 100 UNIT/ML INSULN.PEN SC (16:12)
[2022-07-23 16:30] LABS: Bedside Glucose 228 mg/dL (74-106)
[2022-07-23] MEDS: Furosemide 40 MG/4 ML Vial IV (17:25)
[2022-07-23] MEDS: SACUBITRIL/VALSARTAN 49-51 MG TABLET 1 EACH PO (22:33)
[2022-07-23] MEDS: Metoprolol Tartrate 25 MG Tablet PO (22:35)
[2022-07-23] MEDS: Simvastatin 10 MG Tablet PO (22:37)
[2022-07-23] MEDS: Montelukast 10 MG Tablet PO (22:37)
[2022-07-24] VITALS (14 sets, daily range): BP systolic 95–118; BP diastolic 41–70; PULSE 73–90; RESP 16–20; TEMP 36–36.6; O2SAT 97–99
[2022-07-24] MEDS: Pregabalin 50 MG Capsule 100 MG PO ×2 (05:47→13:07)
[2022-07-24] MEDS: Acetaminophen 500 MG Tablet PO ×3 (05:47→21:03)
[2022-07-24] MEDS: Baclofen 10 MG Tablet 20 MG PO ×2 (05:48→13:06)
--- NOTE | 2022-07-24 06:21 | PCM.PN.INT ---
Assessment & Plan Assessment/Plan (1) Acute respiratory failure with hypoxia: PLAN: Plan RECOMMENDATIONS: 1. Continue diuresis as tolerated by hemodynamics and renal function. 2. Encourage incentive spirometer use and mobilize patient as tolerated. 3. Given that the patient is maintaining saturations on room air, will sign off. Please call with any additional questions. IMPRESSIONS: 1. Acute hypoxemic respiratory failure Most likely secondary to acute decompensated heart failure. The patient underwent an ischemic evaluation by cardiology which revealed patent grafts. Therefore, a viral etiology for the patient's heart failure is a possibility. Cardiology is currently following to assist with medical management. With aggressive diuresis, the patient's oxygenation status has improved. He is no longer requiring supplemental O2 and is maintaining appropriate saturations on room air. I do not see any additional indication for further pulmonary work-up or intervention at this time. 2. Acute decompensated heart failure/NSTEMI Continue primary medical management per cardiology recommendations, including diuresis as tolerated by hemodynamics and renal function. 3. Acute kidney injury Likely cardiorenal in nature, as the patient's creatinine has actually improved with diuresis. Continue to monitor urine output. 4. History of smokeless tobacco dependency/chronic pain syndrome/diabetes mellitus/hypertension/hyperlipidemia Complicates care, management, recovery and prognosis. Continue home medications as indicated. This note was generated with [employer] dictation software. It may contain incorrect words, spelling, and punctuation that were not noted in checking the note before signing. Subjective Subjective The patient was seen and examined at the bedside this morning. Events from the last 24 hours have been reviewed. The patient is currently afebrile, hemodynamically stable and maintaining appropriate oxygen saturations on room air. The patient's only complaint this morning is for that of low back pain. The patient attributes this pain to the fact that he is left in bed most of the day and it is quite uncomfortable. Objective Data Objective Data The patient's most recent lab work, culture data and imaging studies have all been personally reviewed. Surface echocardiogram demonstrated normal LV size with severe global LV systolic dysfunction and an ejection fraction of 20%, along with stage III diastolic dysfunction. Pulmonary artery systolic pressure was estimated to be 42 mmHg. Vital Signs: Vital Signs Temp Pulse Resp BP Pulse Ox O2 Del Method O2 Flow Rate 96.8 F L 73 18 97/70 98 Room Air 1 07/24/22 05:00 07/24/22 05:00 07/24/22 05:00 07/24/22 05:00 07/24/22 05:00 07/24/22 05:00 07/23/22 20:00 FiO2 35 07/23/22 10:00 Oxygen Flow Rate (L/min) 1 Oxygen Delivery Method Room Air Weight: 212 lb 4.882 oz Body Mass Index (BMI) 32.1 Intake & Output: Intake and Output for Last 24 Hours 07/22/22 07/23/22 07/24/22 23:59 23:59 23:59 Intake Total 1493.67 / 1493.67 389.88 / 789.88 550 / 550 Output Total 1250 / 1975 2425 / 2425 Balance 243.67 / -481.33 -2035.12 / -1635.12 550 / 550 Lab / Micro Data Attestation: I reviewed the patient's lab results. Result Diagrams: 07/23/22 04:11 07/24/22 05:45 Labs: Laboratory Results - last 24 hr 07/23/22 16:09: POC Glucose 228 H Micro: Microbiology 07/21/22 10:50 Blood Culture (Wb) - Left Hand Blood Culture - Preliminary No growth in 48 hours. 07/21/22 10:40 Blood Culture (Wb) - Anticubital Right Blood Culture - Preliminary No growth in 48 hours. 07/21/22 14:05 Mucosa - Nasopharyngeal Respiratory Panel (PCR) - Final 07/21/22 15:20 Interface Orders Streptococcus pneumoniae Antigen (M - Final 07/21/22 15:20 Interface Orders Legionella Antigen - Final 07/21/22 10:30 Nasal Secretion SARS-CoV-2 & FLU Antigen (Rapid) - Final Radiography Diagnostic Testing: Radiology Impression Chest X-Ray 07/22/22 07:39 IMPRESSION: Persistent bilateral patchy infiltrates worse in the left hemithorax although there has been some improvement as compared to prior study. Electronically Signed: Chapo Viramontes MD at 9:20 EDT , Physical Exam Const alert and no apparent distress General Appearance: cooperative Nutritional Appearance: obese HEENT normocephalic, head/scalp atraumatic and moist oral mucous membranes Eyes PERRL, EOMs intact bilaterally and conjunctivae normal Neck supple General: trachea midline Chest inspection of chest normal Resp normal respiratory effort Auscultation: Negative for rales, rhonchi or wheezes Cardio regular rate, regular rhythm and no murmurs GI normal to inspection, nondistended, normoactive bowel sounds Extremity no clubbing, cyanosis or edema Skin no rashes or lesions noted Neuro oriented x3, CN's II-XII intact bilaterally, moves all extremities and no focal motor deficits Psych cooperative and affect normal Charges/Coding Visit Charges Inpatient E&M: 59726 Subs Hosp L2
[2022-07-24 06:42] LABS: Anion Gap 7 (5-15); BUN 49 mg/dL (7-18); BUN/Creat Ratio 27.8 RATIO (10-20); Calcium,Total 8.9 mg/dL (8.5-10.1); Chloride 101 mmol/L (98-107); Creatinine, Serum 1.76 mg/dL (0.70-1.30); EST Glomerular Filtration Rate 42 mL/min (>60); Est Glom Filt Rate - Afr Amer 51 mL/min (>60); Estimated Creatinine Clearance 45.51 ml/min; Glucose 264 mg/dL (74-106); Magnesium 1.9 mg/dL (1.6-2.6); Phosphorus 3.5 mg/dL (2.5-4.9); Potassium 3.8 mmol/L (3.5-5.1); Sodium Level 140 mmol/L (136-145)
[2022-07-24] MEDS: Insulin Lispro 100 UNIT/ML INSULN.PEN SC ×3 (07:49→17:02)
[2022-07-24] MEDS: Aspirin E.C. 81 MG Tablet 162 MG PO (07:49)
[2022-07-24] MEDS: Magnesium Chloride 64 MG Delay Rel.Tablet 128 MG PO (07:49)
[2022-07-24] MEDS: 0.9% Saline Lock 10 ML Syringe IV (07:49)
[2022-07-24] MEDS: Empagliflozin 10 MG Tablet PO (07:49)
[2022-07-24] MEDS: Loratadine 10 MG Tablet PO (07:49)
[2022-07-24] MEDS: Furosemide 40 MG/4 ML Vial IV (07:50)
[2022-07-24 08:30] LABS: Bedside Glucose 238 mg/dL (74-106)
--- NOTE | 2022-07-24 10:06 | PN.CARD_ITS ---
Subjective Subjective Denies any shortness of breath. Patient has chronic back pain and complaining of back problems this morning Objective Data Vital Signs: Vital Signs Temp Pulse Resp BP Pulse Ox O2 Del Method O2 Flow Rate 96.8 F L 80 18 95/68 99 Room Air 1 07/24/22 05:00 07/24/22 07:50 07/24/22 05:00 07/24/22 07:50 07/24/22 07:52 07/24/22 07:52 07/23/22 20:00 FiO2 35 07/23/22 10:00 Oxygen Flow Rate (L/min) 1 Oxygen Delivery Method Room Air Weight: 212 lb 4.882 oz Body Mass Index (BMI) 32.1 Intake & Output: Intake and Output for Last 24 Hours 07/22/22 07/23/22 07/24/22 23:59 23:59 23:59 Intake Total 1493.67 / 1493.67 389.88 / 789.88 550 / 550 Output Total 1250 / 1975 2425 / 2425 Balance 243.67 / -481.33 -2035.12 / -1635.12 550 / 550 Lab / Micro Data Attestation: I reviewed the patient's lab results. Result Diagrams: 07/23/22 04:11 07/24/22 05:45 Labs: Laboratory Results - last 24 hr 07/23/22 16:09: POC Glucose 228 H 07/24/22 05:45: Sodium 140, Potassium 3.8, Chloride 101, Carbon Dioxide 32.0, Anion Gap 7, BUN 49 H, Creatinine 1.76 H, Estim Creat Clear Calc 45.51, Est GFR (MDRD) Af Amer 51 L, Est GFR (MDRD) Non-Af 42 L, BUN/Creatinine Ratio 27.8 H, Glucose 264 H, Calcium 8.9, Phosphorus 3.5, Magnesium 1.9 07/24/22 07:36: POC Glucose 238 H Micro: Microbiology 07/21/22 10:50 Blood Culture (Wb) - Left Hand Blood Culture - Preliminary No growth in 48 hours. 07/21/22 10:40 Blood Culture (Wb) - Anticubital Right Blood Culture - Preli minary No growth in 48 hours. Rhythm Strip Rhythm Strip: Sinus Rhythm Cardiology Labs/Tests 07/24/22 05:45: Sodium 140, Potassium 3.8, Chloride 101, Carbon Dioxide 32.0, Anion Gap 7, BUN 49 H, Creatinine 1.76 H, Est GFR (MDRD) Af Amer 51 L, Est GFR (MDRD) Non-Af 42 L, BUN/Creatinine Ratio 27.8 H, Glucose 264 H, Calcium 8.9, Phosphorus 3.5, Magnesium 1.9 Rhythm: EKG: ECHO: Stress Test: Cardiac Cath: PCI: CT Surgery: Holter monitor: EPS: PPM: CXR: Chest CT Scan: Physical Exam Narrative Heart sounds are 2 are normal. Chest examination shows few crepitations at bases bilaterally. Abdomen soft. Nontender. Right groin is stable. No hematoma or bruit noted. No ankle edema. Assessment & Plan Assessment/Plan (1) CHF (congestive heart failure): QUALIFIERS: Heart failure type: systolic Heart failure chronicity: acute Qualified Code(s): I50.21 - Acute systolic (congestive) heart failure PLAN: Diuresed. Today creatinine is mildly up. Agree with discontinuing Lasix infusion. If creatinine remains stable, then may introduce oral furosemide. On sacubitril. If creatinine continues to creep up, then may need to hold sacubitril. (2) Non-ST elevated myocardial infarction: PLAN: Status post coronary angiography. Distal LAD totally occluded. SVGs to the obtuse marginal and right PDA patent. MACK to LAD patent. I doubt that the patient severe cardiomyopathy is a result of total occlusion of the distal LAD. With the patient's fever on presentation, I agree with Dr. Ring that the patient may have had myocarditis as the primary event. Continue to monitor. (3) HTN (hypertension): PLAN: Presently blood pressure borderline. See #1 above.
--- NOTE | 2022-07-24 11:42 | PCM.PN.HOSP ---
Subjective Subjective Follow-up for acute on chronic heart failure. Patient is still mild short of breath and complain of back pain. He has chronic back pain got exacerbated last 1 or 2 days as he is uncomfortable on the bed. It is widespread from thoracic region to lumbar area mainly on left paraspinal muscle. Objective Data Objective Data Vital Signs: Vital Signs Temp Pulse Resp BP Pulse Ox O2 Del Method O2 Flow Rate 96.8 F L 80 18 95/68 98 Room Air 1 07/24/22 05:00 07/24/22 07:50 07/24/22 05:00 07/24/22 07:50 07/24/22 05:00 07/24/22 05:00 07/23/22 20:00 FiO2 35 07/23/22 10:00 Oxygen Flow Rate (L/min) 1 Oxygen Delivery Method Room Air Weight: 212 lb 4.882 oz Body Mass Index (BMI) 32.1 Intake & Output: Intake and Output for Last 24 Hours 07/22/22 07/23/22 07/24/22 23:59 23:59 23:59 Intake Total 1493.67 / 1493.67 389.88 / 789.88 550 / 550 Output Total 1250 / 1975 2425 / 2425 Balance 243.67 / -481.33 -2035.12 / -1635.12 550 / 550 Lab / Micro Data Result Diagrams: 07/23/22 04:11 07/24/22 05:45 Labs: Laboratory Results - last 24 hr 07/23/22 16:09: POC Glucose 228 H 07/24/22 05:45: Sodium 140, Potassium 3.8, Chloride 101, Carbon Dioxide 32.0, Anion Gap 7, BUN 49 H, Creatinine 1.76 H, Estim Creat Clear Calc 45.51, Est GFR (MDRD) Af Amer 51 L, Est GFR (MDRD) Non-Af 42 L, BUN/Creatinine Ratio 27.8 H, Glucose 264 H, Calcium 8.9, Phosphorus 3.5, Magnesium 1.9 Micro: Microbiology 07/21/22 10:50 Blood Culture (Wb) - Left Hand Blood Culture - Preliminary No growth in 48 hours. 07/21/22 10:40 Blood Culture (Wb) - Anticubital Right Blood Culture - Preliminary No growth in 48 hours. 07/21/22 14:05 Mucosa - Nasopharyngeal Respiratory Panel (PCR) - Final 07/21/22 15:20 Interface Orders Streptococcus pneumoniae Antigen (M - Final 07/21/22 15:20 Interface Orders Legionella Antigen - Final 07/21/22 10:30 Nasal Secretion SARS-CoV-2 & FLU Antigen (Rapid) - Final Physical Exam Narrative Physical exam General: Alert, Oriented x3, Cooperative HEENT: Atraumatic, PERRLA, EOMI, Normocephalic Oral: No Gingival or Mucosal Lesions/ Ulcerations Neck: Supple, No JVD, Negative Carotid Bruits Lungs: Air entry diminished in bilateral lung bases. Mild bibasilar crepitations Cardiovascular: Regular rate, Regular Rhythm, PVCs, normal S1, Normal S2, No murmurs Abdomen: Bowel Sounds Present, Soft, Non Tender, Non-Distended : No renal angle tenderness. No suprapubic tenderness. Extremities: No significant pedal edema, Capillary Refill Less than 3 Seconds Skin: No rashes, No breakdown Musculoskeletal/spine: Mild spinal muscle tenderness over left thoracic and lumbar area. ROM restricted. Neurological: Cranial nerves II-XII grossly intact, DTR 2+/4 and Symmetrical, Neuro grossly intact Psych/Mental Status: Normal Affect, Appropriate. Assessment & Plan Assessment/Plan (1) CHF (congestive heart failure): (2) Acute respiratory failure with hypoxia: (3) Non-ST elevated myocardial infarction: PLAN: Plan This 62-year-old patient woman admitted with chief complaint of shortness of breath. Prior to that patient had chest pain on 07/06/2022. At that time his troponins were normal and he was discharged from ER after treatment for hyperkalemia. 1. Acute hypoxic respiratory failure secondary to 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:-Patient with acute hypoxia having oxygen saturations of 81% on room air, tachycardia, tachypnea upon presentation. Patient on respiratory support with BiPAP overnight. Patient is diuresed well. Respiratory viral panel, COVID PCR, strep pneumo and Legionella antigens are negative. Coxsackie and B antibodies pending. Patient echo showed EF 20% with global LV dysfunction and stage III diastolic dysfunction. Last echo on 05/19/2022 shows EF 50% with no significant valvular disease. No leg swelling but mild pulmonary crackles. Heart failure core measures including intake and output, fluid restriction less than 1500 mL, daily weight monitoring, kidney and electrolytes monitoring. Lasix held as patient creatinine showed a jump of 0.5 mg. Patient had cardiac cath which shows patent SVG to OM and right PDA, MACK to LAD. Distal LAD totally occluded. Patient had fever on presentation therefore most probably myocarditis. 2. JUAN on CKD stage II: Patient creatinine increased to 1.76 from baseline 1.17, 1.29 due to diuretic. Hold Lasix and Entresto. Bicarb 32, anion gap 7. Serum sodium and potassium normal. 3. NSTEMI, type II due to demand ischemia secondary to suspected myocarditis 4. Acute 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 -Appears to be acute and related to above infection. On metoprolol. Later on consider Aldactone if kidney function gets better. -Continue Jardiance 10 mg--> monitor closely for signs of DKA -We will need follow-up echocardiogram in 6 to 8 weeks after goal-directed therapy 5. Hypokalemia and hypophosphatemia resolved CAD status post CABG x3 -Patient with significant cardiac history having CABG in [address] [facility] [address] Zhu -MACK to LAD/SVG to OM/SVG to left PDA -Not had any issues since his CABG -Cardiac catheterization done on 07/23/2022 shows patent grafts x3 -Continue aspirin -See above Hyperlipidemia -Continue home statin -Lipid panel shows a total cholesterol of 123/LDL of 52/HDL of 43 indicating good cholesterol control Hypertension -Continue metoprolol but increase to 25 mg p.o. twice daily -Continue lisinopril and start Entresto in its place -Continue amlodipine 10 mg daily DM-2 -Most recent hemoglobin A1c was from 11/23/2021 and was 5.6--> A1c is slightly higher at 6.1 but still well controlled -Hold home metformin and will likely need to discontinue on discharge -Start SLGP 2 inhibitor with Jardiance 10 mg daily with heart failure -Continue sliding scale -Accu-Cheks as ordered Neuropathy/chronic pain -Continue Lyrica but decrease dose to 100 mg 3 times daily -Home dose is 200 mg 3 times daily however this is significantly higher than recommended max dose of 300 mg daily -Continue baclofen ED -Restart home medications at discharge History of alcohol use -Patient denies any daily or regularly use at this time -Dhruv he has a social drink every once in a while History of tobacco use -Uses chewing tobacco -We will provide nicotine patch if needed DVT prophylaxis -Heparin drip CODE STATUS -Full code is verified admission the emergency department Total time of the visit including total time spent in counseling or coordination of care, (more than 50% of the total time, spent in obtaining medical information from nurses and other ancillary care providers,explaining to the patient about labs, imaging, diagnosis and management of active complex medical conditions), discussion with furniture removalist's assistant and renal technician, review of labs and imaging is 40 minutes. Charges/Coding Visit Charges Inpatient E&M: 75517 Subs Hosp L3
[2022-07-24 13:30] LABS: Bedside Glucose 254 mg/dL (74-106)
[2022-07-24 17:16] LABS: Bedside Glucose 226 mg/dL (74-106)
--- NOTE | 2022-07-24 17:20 | CT_ITS ---
STUDY: CT BRAIN WITHOUT CONTRAST REASON FOR EXAM: Male, 62 years old. Altered mental status. RADIATION DOSAGE (If Supplied By Facility): CTDIvol = ( 44.99 ) mGy, DLP = ( 829.85 ) mGycm TECHNIQUE: Transaxial CT imaging of the brain was performed without administration of intravenous contrast material. Individualized dose optimization techniques were used for this CT. COMPARISON: No relevant priors. FINDINGS: Normal soft tissue structures. Normal calvarium. Normal size ventricles and extra-axial spaces for the patient''s age. Normal white matter tracts of the cerebral hemispheres. Normal basal ganglia and thalami. Normal brainstem. Normal cerebellum. There is no intracranial hemorrhage. There are no findings of an acute ischemic infarction. Normal visualized paranasal sinuses. CT/Brain/Head without Contrast IMPRESSION: Normal unenhanced CT scan of the brain. Electronically Signed: Hasmukh Mcgowan DO at 20:38 EDT ,
--- NOTE | 2022-07-24 17:52 | NURSING ---
Around 1700 this nurse goes into pt room to give meds and check blood sugar and VS. Pt appears lethargic and drowsy. Pt able to open eyes. Pt unable to hold hand up for this nurse to get accucheck. This nurse states Deirdre hold your hand up please pt states I can't. Pt states I am in [place] and states its 1968 able to say first and last name. When clinic charge nurse Kenzie comes into room and asks orientation questions, pt answers correctly few moments later. Pt states my f back hurts, I don't want to . Pt able to hold both arms out parellel with no drift. Pt remains NSR and 98% on RA. Pt BP's have been soft all day, but stable- see VSA. Dr Clarke made aware as this nurse is unsure of pt condition, as pt states I feel ok... Dr. Clarke assesses pt and states to do CT of head and do not give anything else for pain at this time. States Patient is very drowsy. Will continue to monitor
[2022-07-24] MEDS: Metoprolol Tartrate 25 MG Tablet PO (21:03)
[2022-07-24] MEDS: Simvastatin 10 MG Tablet PO (21:04)
[2022-07-24] MEDS: Montelukast 10 MG Tablet PO (21:04)
[2022-07-24 22:36] LABS: Bedside Glucose 171 mg/dL (74-106)
[2022-07-25] VITALS (15 sets, daily range): BP systolic 108–136; BP diastolic 58–87; PULSE 83–101; RESP 16–18; TEMP 36.4–37.1; O2SAT 94–100
[2022-07-25] MEDS: Acetaminophen 500 MG Tablet PO ×3 (06:35→21:22)
[2022-07-25] MEDS: Baclofen 10 MG Tablet 20 MG PO (07:31)
[2022-07-25 08:52] LABS: Albumin, Serum 2.9 g/dL (3.2-5.0); BUN 50 mg/dL (7-18); BUN/Creat Ratio 39.1 RATIO (10-20); Calcium,Total 9.4 mg/dL (8.5-10.1); Chloride 105 mmol/L (98-107); Creatinine, Serum 1.28 mg/dL (0.70-1.30); EST Glomerular Filtration Rate 61 mL/min (>60); Est Glom Filt Rate - Afr Amer 73 mL/min (>60); Estimated Creatinine Clearance 62.58 ml/min; Glucose 183 mg/dL (74-106); Potassium 3.7 mmol/L (3.5-5.1); Sodium Level 141 mmol/L (136-145)
[2022-07-25] MEDS: Magnesium Chloride 64 MG Delay Rel.Tablet 128 MG PO (09:28)
[2022-07-25] MEDS: Empagliflozin 10 MG Tablet PO (09:29)
[2022-07-25] MEDS: Loratadine 10 MG Tablet PO (09:29)
[2022-07-25] MEDS: Aspirin E.C. 81 MG Tablet 162 MG PO (09:29)
[2022-07-25] MEDS: Senna/Docusate Sodium 1 Tablet 2 TABLET PO (09:29)
[2022-07-25] MEDS: amLODIPine 10 MG Tablet PO (09:29)
[2022-07-25] MEDS: Polyethylene Glycol 3350 17 GM PACKET PO (09:30)
[2022-07-25] MEDS: Metoprolol Tartrate 25 MG Tablet PO ×2 (09:30→21:22)
[2022-07-25] MEDS: Insulin Lispro 100 UNIT/ML INSULN.PEN SC ×3 (09:38→17:01)
[2022-07-25 10:01] LABS: Bedside Glucose 222 mg/dL (74-106)
--- NOTE | 2022-07-25 10:36 | PN.CARD_ITS ---
Subjective Subjective Denies any complaints. Objective Data Vital Signs: Vital Signs Temp Pulse Resp BP Pulse Ox O2 Del Method O2 Flow Rate 97.5 F L 88 16 108/79 99 Room Air 1 07/25/22 09:16 07/25/22 09:30 07/25/22 09:16 07/25/22 09:30 07/25/22 09:16 07/25/22 09:19 07/24/22 16:00 FiO2 35 07/24/22 16:00 Oxygen Flow Rate (L/min) 1 Oxygen Delivery Method Room Air Weight: 206 lb 12.697 oz Body Mass Index (BMI) 32.1 Intake & Output: Intake and Output for Last 24 Hours 07/23/22 07/24/22 07/25/22 23:59 23:59 23:59 Intake Total 389.88 / 789.88 1050 / 1050 Output Total 2425 / 2425 200 / 200 1000 / 1000 Balance -2035.12 / -1635.12 850 / 850 -1000 / -1000 Lab / Micro Data Result Diagrams: 07/23/22 04:11 07/25/22 06:50 Labs: Laboratory Results - last 24 hr 07/24/22 13:04: POC Glucose 254 H 07/24/22 16:49: POC Glucose 226 H 07/24/22 20:55: POC Glucose 171 H 07/25/22 06:50: Sodium 141, Potassium 3.7, Chloride 105, Carbon Dioxide 23.0, BUN 50 H, Creatinine 1.28, Estim Creat Clear Calc 62.58, Est GFR (MDRD) Af Amer 73, Est GFR (MDRD) Non-Af 61, BUN/Creatinine Ratio 39.1 H, Glucose 183 H, Calcium 9.4, Phosphorus 4.0, Albumin 2.9 L 07/25/22 09:37: POC Glucose 222 H Rhythm Strip Rhythm Strip: Sinus Rhythm Cardiology Labs/Tests 07/25/22 06:50: Sodium 141, Potassium 3.7, Chloride 105, Carbon Dioxide 23.0, BUN 50 H, Creatinine 1.28, Est GFR (MDRD) Af Amer 73, Est GFR (MDRD) Non-Af 61, BUN/Creatinine Ratio 39.1 H, Glucose 183 H, Calcium 9.4, Phosphorus 4.0 Rhythm: EKG: ECHO: Stress Test: Cardiac Cath: PCI: CT Surgery: Holter monitor: EPS: PPM: CXR: Chest CT Scan: Radiography Diagnostic Testing: Radiology Impression Brain CT 07/24/22 17:20 IMPRESSION: Normal unenhanced CT scan of the brain. Electronically Signed: Hasmukh Mcgowan DO at 20:38 EDT Reading Location ID and State: [address] [place] [address] Tel [phone], Service support , Assessment & Plan Assessment/Plan (1) CHF (congestive heart failure): QUALIFIERS: Heart failure type: systolic Heart failure chronicity: acute Qualified Code(s): I50.21 - Acute systolic (congestive) heart failure PLAN: Creatinine better. Start on oral Lasix. Symptomatically better. If continues to do good, may discharge home in the morning (2) Non-ST elevated myocardial infarction: PLAN: Status post coronary angiography. Distal LAD totally occluded. SVGs to the obtuse marginal and right PDA patent. MACK to LAD patent. I doubt that the patient severe cardiomyopathy is a result of total occlusion of the distal LAD. With the patient's fever on presentation, I agree with Dr. Ring that the patient may have had myocarditis as the primary event. Continue to monitor. Start on clopidogrel. Patient denies any history of intracranial bleed. (3) HTN (hypertension): PLAN: Presently blood pressure borderline. See #1 above.
[2022-07-25] MEDS: Clopidogrel Bisulfate 75 MG Tablet PO (12:04)
[2022-07-25] MEDS: Furosemide 40 MG Tablet PO (12:04)
--- NOTE | 2022-07-25 12:38 | PN.HOSP_ITS ---
Subjective Subjective Follow-up for acute on chronic heart failure Patient does not have shortness of breath or chest pain. At times patient seems confused and disoriented, unusual behavior, lying naked on the bed. Patient also has chronic back pain although did not complain today. Yesterday CT head was done as patient was found disorganized, disoriented by the nurse. CT head reported normal. Objective Data Objective Data Vital Signs: Vital Signs Temp Pulse Resp BP Pulse Ox O2 Del Method O2 Flow Rate 97.5 F L 88 16 108/79 99 Room Air 1 07/25/22 09:16 07/25/22 09:30 07/25/22 09:16 07/25/22 09:30 07/25/22 09:16 07/25/22 09:19 07/24/22 16:00 FiO2 35 07/24/22 16:00 Oxygen Flow Rate (L/min) 1 Oxygen Delivery Method Room Air Weight: 206 lb 12.697 oz Body Mass Index (BMI) 32.1 Intake & Output: Intake and Output for Last 24 Hours 07/23/22 07/24/22 07/25/22 23:59 23:59 23:59 Intake Total 389.88 / 789.88 1050 / 1050 420 / 420 Output Total 2425 / 2425 200 / 200 1500 / 1500 Balance -2035.12 / -1635.12 850 / 850 -1080 / -1080 Lab / Micro Data Result Diagrams: 07/23/22 04:11 07/25/22 06:50 Labs: Laboratory Results - last 24 hr 07/24/22 13:04: POC Glucose 254 H 07/24/22 16:49: POC Glucose 226 H 07/24/22 20:55: POC Glucose 171 H 07/25/22 06:50: Sodium 141, Potassium 3.7, Chloride 105, Carbon Dioxide 23.0, BUN 50 H, Creatinine 1.28, Estim Creat Clear Calc 62.58, Est GFR (MDRD) Af Amer 73, Est GFR (MDRD) Non-Af 61, BUN/Creatinine Ratio 39.1 H, Glucose 183 H, Calcium 9.4, Phosphorus 4.0, Albumin 2.9 L 07/25/22 09:37: POC Glucose 222 H Micro: Microbiology 07/21/22 10:50 Blood Culture (Wb) - Left Hand Blood Culture - Preliminary No growth in 48 hours. 07/21/22 10:40 Blood Culture (Wb) - Anticubital Right Blood Culture - Preliminary No growth in 48 hours. 07/21/22 14:05 Mucosa - Nasopharyngeal Respiratory Panel (PCR) - Final 07/21/22 15:20 Interface Orders Streptococcus pneumoniae Antigen (M - Final 07/21/22 15:20 Interface Orders Legionella Antigen - Final 07/21/22 10:30 Nasal Secretion SARS-CoV-2 & FLU Antigen (Rapid) - Final Radiography Diagnostic Testing: Radiology Impression Brain CT 07/24/22 17:20 IMPRESSION: Normal unenhanced CT scan of the brain. Electronically Signed: Hasmukh McgowanDO at 20:38 EDT Reading Location ID and State: [address] [place] [address] Tel [phone], Service support , Rhythm Strip Rhythm Strip: Sinus Rhythm Physical Exam Narrative Physical exam General: Alert, Oriented x3, Cooperative HEENT: Atraumatic, PERRLA, EOMI, Normocephalic Oral: No Gingival or Mucosal Lesions/ Ulcerations Neck: Supple, No JVD, Negative Carotid Bruits Lungs: Air entry diminished in bilateral lung bases. Lungs clear, no crepitations. Cardiovascular: Regular rate, Regular Rhythm, PVCs, normal S1, Normal S2, No murmurs Abdomen: Bowel Sounds Present, Soft, Non Tender, Non-Distended : No renal angle tenderness. No suprapubic tenderness. Extremities: No significant pedal edema, Capillary Refill Less than 3 Seconds Skin: No rashes, No breakdown Musculoskeletal/spine: Mild spinal muscle tenderness over left thoracic and lumbar area. ROM restricted. Neurological: Cranial nerves II-XII grossly intact, DTR 2+/4 and Symmetrical, Neuro grossly intact Psych/Mental Status: Patient sometimes choking. Assessment & Plan Assessment/Plan (1) CHF (congestive heart failure): QUALIFIERS: Heart failure type: systolic Heart failure chronicity: acute Qualified Code(s): I50.21 - Acute systolic (congestive) heart failure (2) Acute respiratory failure with hypoxia: (3) Non-ST elevated myocardial infarction: PLAN: Plan This 62-year-old patient woman admitted with chief complaint of shortness of breath. Prior to that patient had chest pain on 07/06/2022. At that time his troponins were normal and he was discharged from ER after treatment for hyper kalemia. 1. Acute hypoxic respiratory failure secondary to 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:-Patient with acute hypoxia having oxygen saturations of 81% on room air, tachycardia, tachypnea upon presentation. Patient on respiratory support with BiPAP overnight. Patient is diuresed well. Respiratory viral panel, COVID PCR, strep pneumo and Legionella antigens are negative. Coxsackie and B antibod ies pending. Patient echo showed EF 20% with global LV dysfunction and stage III diastolic dysfunction. Last echo on 05/19/2022 shows EF 50% with no significant valvular disease. No leg swelling but mild pulmonary crackles. Heart failure core measures including intake and output, fluid restriction less than 1500 mL, daily weight monitoring, kidney and electrolytes monitoring. Lasix held as patient creatinine showed a jump of 0.5 mg. Patient had cardiac cath which shows patent SVG to OM and right PDA, MACK to LAD. Distal LAD totally occluded. Patient had fever on presentation therefore most probably myocarditis. 07/25: Shortness of breath has improved. Lungs clear. Lasix resumed. Disor ganized and unusual behavior, sometimes confused and disoriented, exact etiology unclear. CT head reported normal. Patient on baclofen dose decreased to 10 mg 3 times daily.PT and OT ordered. Plan for discharge tomorrow. 2. JUAN on CKD stage II: Patient creatinine increased to 1.76 from baseline 1.17, 1.29 due to diuretic. Hold Lasix and Entresto. Bicarb 32, anion gap 7. Serum sodium and potassium normal. 07/25: Creatinine back to normal on baseline. Lasix resumed. BP systolic 108. Consider Entresto later on if kidney function and BP holds good in normal range 3. NSTEMI, type II due to demand ischemia secondary to suspected myocarditis 4. Acute 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 -Appears to be acute and related to above infection. On metoprolol. Later on consider Aldactone if kidney function gets better. -Continue Jardiance 10 mg--> monitor closely for signs of DKA -We will need follow-up echocardiogram in 6 to 8 weeks after goal-directed therapy 5. Hypokalemia and hypophosphatemia resolved CAD status post CABG x3 -Patient with significant cardiac history having CABG in 2018 at [facility] by Dr. Marko CRENSHAW to LAD/SVG to OM/SVG to left PDA -Not had any issues since his CABG -Cardiac catheterization done on 07/23/2022 shows patent grafts x3 -Continue aspirin -See above Hyperlipidemia -Continue home statin -Lipid panel shows a total cholesterol of 123/LDL of 52/HDL of 43 indicating good cholesterol control Hypertension -Continue metoprolol but increase to 25 mg p.o. twice daily -Continue lisinopril and start Entresto in its place -Continue amlodipine 10 mg daily DM-2 -Most recent hemoglobin A1c was from 11/23/2021 and was 5.6--> A1c is slightly higher at 6.1 but still well controlled -Hold home metformin and will likely need to discontinue on discharge -Start SLGP 2 inhibitor with Jardiance 10 mg daily with heart failure -Continue sliding scale -Accu-Cheks as ordered Neuropathy/chronic pain -Continue Lyrica but decrease dose to 100 mg 3 times daily -Home dose is 200 mg 3 times daily however this is significantly higher than recommended max dose of 300 mg daily -Continue baclofen ED -Restart home medications at discharge History of alcohol use There was concern that patient might have alcoholic withdrawal but does not have tremors. He denies chronic alcohol use states he takes 0 amount of alcohol. H&P shows patient uses alcohol infrequently on holidays or special occasions mainly, beer. History of tobacco use -Uses chewing tobacco -We will provide nicotine patch if needed DVT prophylaxis -Heparin drip CODE STATUS -Full code is verified admission the emergency department Charges/Coding Visit Charges Inpatient E&M: 60017 Subs Hosp L2
[2022-07-25 12:51] LABS: Bedside Glucose 279 mg/dL (74-106)
[2022-07-25] MEDS: Pregabalin 50 MG Capsule 100 MG PO ×2 (14:33→21:21)
[2022-07-25] MEDS: Baclofen 10 MG Tablet PO ×2 (14:34→21:22)
[2022-07-25 19:06] LABS: Bedside Glucose 214 mg/dL (74-106)
[2022-07-25] MEDS: Simvastatin 10 MG Tablet PO (21:22)
[2022-07-25] MEDS: Montelukast 10 MG Tablet PO (21:22)
[2022-07-25 22:56] LABS: Bedside Glucose 288 mg/dL (74-106)
[2022-07-26] VITALS (9 sets, daily range): BP systolic 101–117; BP diastolic 60–69; PULSE 79–88; RESP 16–18; TEMP 36.6; O2SAT 93–100
[2022-07-26] MEDS: Pregabalin 50 MG Capsule 100 MG PO (05:47)
[2022-07-26] MEDS: Baclofen 10 MG Tablet PO (05:47)
[2022-07-26] MEDS: Acetaminophen 500 MG Tablet PO (05:47)
[2022-07-26 07:42] LABS: BUN 42 mg/dL (7-18); BUN/Creat Ratio 37.8 RATIO (10-20); Calcium,Total 9.4 mg/dL (8.5-10.1); Chloride 103 mmol/L (98-107); Creatinine, Serum 1.11 mg/dL (0.70-1.30); EST Glomerular Filtration Rate 72 mL/min (>60); Est Glom Filt Rate - Afr Amer 87 mL/min (>60); Estimated Creatinine Clearance 72.16 ml/min; Glucose 197 mg/dL (74-106); Phosphorus 3.4 mg/dL (2.5-4.9); Potassium 4.1 mmol/L (3.5-5.1); Sodium Level 140 mmol/L (136-145)
[2022-07-26] MEDS: Insulin Lispro 100 UNIT/ML INSULN.PEN SC ×2 (08:34→12:47)
[2022-07-26] MEDS: Aspirin E.C. 81 MG Tablet 162 MG PO (08:36)
[2022-07-26 08:56] LABS: Bedside Glucose 205 mg/dL (74-106)
--- NOTE | 2022-07-26 09:09 | PCM.PN.CARD ---
Subjective Subjective Comfortable. No distress. Ambulating. Wants to go home. Objective Data Vital Signs: Vital Signs Temp Pulse Resp BP Pulse Ox O2 Del Method O2 Flow Rate 97.8 F 79 18 117/69 95 Room Air 1 07/26/22 03:15 07/26/22 07:00 07/26/22 03:15 07/26/22 03:15 07/26/22 09:05 07/26/22 09:05 07/24/22 16:00 FiO2 35 07/24/22 16:00 Oxygen Flow Rate (L/min) 1 Oxygen Delivery Method Room Air Weight: 206 lb 9.17 oz Body Mass Index (BMI) 32.1 Intake & Output: Intake and Output for Last 24 Hours 07/24/22 07/25/22 07/26/22 23:59 23:59 23:59 Intake Total 1050 / 1050 760 / 760 240 / 240 Output Total 200 / 200 1500 / 1500 575 / 575 Balance 850 / 850 -740 / -740 -335 / -335 Lab / Micro Data Result Diagrams: 07/23/22 04:11 07/26/22 06:32 Labs: Laboratory Results - last 24 hr 07/25/22 09:37: POC Glucose 222 H 07/25/22 11:54: POC Glucose 279 H 07/25/22 17:00: POC Glucose 214 H 07/25/22 21:18: POC Glucose 288 H 07/26/22 06:32: Sodium 140, Potassium 4.1, Chloride 103, Carbon Dioxide 26.0, BUN 42 H, Creatinine 1.11, Estim Creat Clear Calc 72.16, Est GFR (MDRD) Af Amer 87, Est GFR (MDRD) Non-Af 72, BUN/Creatinine Ratio 37.8 H, Glucose 197 H, Calcium 9.4, Phosphorus 3.4, Albumin 3.0 L 07/26/22 08:33: POC Glucose 205 H Rhythm Strip Rhythm Strip: Sinus Rhythm Cardiology Labs/Tests 07/26/22 06:32: Sodium 140, Potassium 4.1, Chloride 103, Carbon Dioxide 26.0, BUN 42 H, Creatinine 1.11, Est GFR (MDRD) Af Amer 87, Est GFR (MDRD) Non-Af 72, BUN/Creatinine Ratio 37.8 H, Glucose 197 H, Calcium 9.4, Phosphorus 3.4 Rhythm: EKG: ECHO: Stress Test: Cardiac Cath: PCI: CT Surgery: Holter monitor: EPS: PPM: CXR: Chest CT Scan: Physical Exam Narrative Comfortable. No distress. Assessment & Plan Assessment/Plan (1) CHF (congestive heart failure): QUALIFIERS: Heart failure type: systolic Heart failure chronicity: acute Qualified Code(s): I50.21 - Acute systolic (congestive) heart failure PLAN: Creatinine better. Symptomatically better. If continues to do good, may discharge home in the morning (2) Non-ST elevated myocardial infarction: PLAN: Status post coronary angiography. Distal LAD totally occluded. SVGs to the obtuse marginal and right PDA patent. MACK to LAD patent. I doubt that the patient severe cardiomyopathy is a result of total occlusion of the distal LAD. With the patient's fever on presentation, I agree with Dr. Ring that the patient may have had myocarditis as the primary event. Continue to monitor. Continue medical management. (3) HTN (hypertension): PLAN: Presently blood pressure borderline. See #1 above. PLAN: Plan May discharge home. Follow-up with Dr. Ring as outpatient
[2022-07-26] MEDS: Clopidogrel Bisulfate 75 MG Tablet PO (09:22)
[2022-07-26] MEDS: Furosemide 40 MG Tablet PO (09:22)
[2022-07-26] MEDS: Empagliflozin 10 MG Tablet PO (09:22)
[2022-07-26] MEDS: Magnesium Chloride 64 MG Delay Rel.Tablet 128 MG PO (09:23)
[2022-07-26] MEDS: Loratadine 10 MG Tablet PO (09:23)
[2022-07-26] MEDS: Metoprolol Tartrate 25 MG Tablet PO (09:23)
[2022-07-26] MEDS: amLODIPine 10 MG Tablet PO (09:23)
--- NOTE | 2022-07-26 09:58 | DCINST_ITS ---
Discharge Instructions Diet Discharge Diet: Low fat / Low cholesterol, 1800 Calorie Control Diet, 6 Cup Fluid Restriction and 2000 mg Sodium Diet Activity Discharge Activity: Return to Normal Activity Dressing / Incision Call your doctor if you observe: Fever of 101 or Higher, Coldness, Increased Pain, Numbness or Tingling, Change in Color, Inability to urinate, Inability to have a bowel movement, Shortness of breath, Dizziness, Fainting spells, Swelling in the ankles, Chest pain, Prolonged hiccupping, Increased palpitations (irregular heartbeat), Calf discomfort and Uncontrolled pain Follow Up Care Test Results: Test results from this visit will be discussed in further detail at your follow- up appointment, if applicable. Discharge Plan Admission Admit Date/Time: 07/21/22 13:13 Primary Reason for Your Visit: Acute hypoxic respiratory failure due to acute HFrEF Attending Provider: Moe Clarke Primary Care Provider: Avery Escalante Consulting Providers: Senthil Hoang ; [place] Brooke ; Martin Serrano ; Jorgito Lugo ; Jaciel Mendez ; Janis Sidhu NP ; Magaly Bull Discharge Orders/Prescriptions Prescriptions: New furosemide 40 mg Tablet 40 mg PO DAILY Qty: 30 2RF Rx Instructions: Take an additional 40 mg dose at 5 PM for increased leg swelling or weight gain 5 pounds in 1 week. clopidogrel 75 mg Tablet 75 mg PO DAILY Qty: 30 2RF metoprolol tartrate 25 mg Tablet 25 mg PO BID Qty: 60 2RF Jardiance 10 mg Tablet 10 mg PO DAILY Qty: 30 0RF polyethylene glycol 3350 17 gram Powder In Packet 17 g PO DAILY Qty: 0 0RF Rx Instructions: [id number] sennosides-docusate sodium [Stool Softener-Stimulant Laxat] 8.6-50 mg Tablet 2 tab PO BID Qty: 0 0RF Rx Instructions: [id number]-ycs-imkcktt Continued amlodipine 10 mg tablet 10 mg PO DAILY albuterol sulfate [ProAir HFA] 90 mcg/actuation HFA aerosol inhaler 2 puff INHALATION Q4H PRN (Reason: Sob &/Or Wheezing) simvastatin 10 mg tablet 10 mg PO QHS metformin 500 mg tablet 500 mg PO BID pregabalin [Lyrica] 100 mg capsule 200 mg PO TID vardenafil 20 mg tablet 20 mg PO DAILY PRN (Reason: ERECTION) docusate sodium 100 mg capsule 100 mg PO BID PRN (Reason: Constipation) magnesium oxide 250 mg magnesium tablet 500 mg PO DAILY ammonium lactate 12 % lotion 1 applic topical PRN PRN (Reason: SKIN) desonide 1 APPLIC cream 1 applic TOPICAL BID PRN (Reason: Dry Skin) ketoconazole 15 GM cream 1 applic TOPICAL DAILY PRN (Reason: Dry Skin) Label Comments: TO FACE DAILY insulin lispro 100 UNIT/ML insulin pen See Protocol SQ TIDCM Protocol: 6. Sliding Scale Insulin Custom Condition: mg/dl range Dose/Route: Number of Units Protocol Text: Custom Sliding Scale Label Comments: 12-20 UNITS Rx Instructions: sliding scale biotin 1 MG tablet 1 mg PO DAILY cyanocobalamin (vitamin B-12) 1,000 MCG/ML solution 1,000 mcg IM Q30D baclofen 20 mg Tablet 20 mg PO TID montelukast [Singulair] 10 mg Tablet 10 mg PO QHS omega-3 fatty acids Capsule 1,000 mg PO DAILY cholecalciferol (vitamin D3) [Vitamin D3] 125 mcg (5,000 unit) Tablet 125 mcg PO DAILY coenzyme Q10 100 mg Tablet 100 mg PO QHS acetaminophen 500 mg tablet 500 mg PO TID Changed aspirin 81 mg tablet,delayed release (DR/EC) 81 mg PO DAILY MDD . Qty: 30 3RF Held cetirizine 10 mg tablet 10 mg PO DAILY Hold Instructions: 1 L as needed for nasal allergies/rhinitis or cold symptoms lisinopril 5 MG tablet 5 mg PO QDAY Hold Instructions: Hold for 5 days and then resume 2.5 mg daily and then uptitrate as tolerated by kidney function. Discontinued turmeric root extract 500 mg tablet 1,000 mg PO DAILY whueoqkoc-[id number]-algal oil [Foltanx RF] 3 mg-35 mg-2 mg -90.314 mg capsule 1 cap PO BID metoprolol tartrate 25 mg tablet 12.5 mg PO BID MDD . Referrals / Follow Up: [place] Brooke MD [Med Staff - Active Staff] - Within 1 Month (for respiratory failure and PFT) Avery Escalante DO [Primary Care Provider] - Within 1 Week Mat Ring MD [Med Staff - Active Staff] - Janis Sidhu RECOVERY UNIT OPERATOR, RECOVERY UNIT OPERATOR-C [Med Staff - Adv Practice Prof] - Within 2 Weeks Disposition Disposition (needs filled in before D/C Order can be placed): Home, Self Care
--- NOTE | 2022-07-26 11:41 | DS.PCM_ITS ---
Providers Date of Admission: 07/21/22 Date of Discharge: 07/26/22 Primary Care Physician: Dr. Avery Escalante, Consultations 07/21/22 13:50 Consult: Cardiology Routine Consulting Provider: Senthil Hoang Reason for Consult: Chest Pain EMERGENT Consult: No Notified: Yes Date Notified: 07/21/22 Time Notified: 13:19 Method of Notification: Verbal 07/22/22 08:15 Consult: Information Clerk Brokerage / Pulmonary Medicine Routine Consulting Provider: Pulmonary Medicine licha [place] Reason for Consult: Acute Hypoxic Respiratory Failure EMERGENT Consult: No Notified: Yes Date Notified: 07/22/22 Time Notified: 08:16 Method of Notification: Verbal Reason For Visit: NSTEMI / CHF Diagnosis Discharge Diagnosis (1) CHF (congestive heart failure): Status: Acute Code(s): I50.9 - Heart failure, unspecified Qualifiers: Heart failure chronicity: acute Heart failure type: systolic Qualified Code(s): I50.21 - Acute systolic (congestive) heart failure (2) Non-ST elevated myocardial infarction: Status: Acute Code(s): I21.4 - Non-ST elevation (NSTEMI) myocardial infarction (3) HTN (hypertension): Status: Chronic Code(s): I10 - Essential (primary) hypertension Medications at Discharge Home Medications biotin 1 mg tablet 1 mg PO DAILY general health 04/01/18 desonide 0.05 % topical cream 1 applic topical BID PRN Dry Skin 04/01/18 insulin lispro 100 unit/mL subcutaneous pen See Protocol SQ TIDCM diabetes 04/01/18 ketoconazole 2 % topical cream 1 applic topical DAILY PRN Dry Skin 04/01/18 albuterol sulfate 90 mcg/actuation aerosol inhaler (ProAir HFA) 2 puff inhalation Q4H PRN Sob &/Or Wheezing 08/13/19 amlodipine 10 mg tablet 10 mg PO DAILY blood pressure 08/13/19 cetirizine 10 mg tablet 10 mg PO DAILY allergies 08/13/19 simvastatin 10 mg tablet 10 mg PO QHS cholesterol 08/13/19 cyanocobalamin (vitamin B-12) 1,000 mcg/mL injection solution 1,000 mcg IM Q30D supplement 08/22/19 lisinopril 5 mg tablet 5 mg PO QDAY blood pressure 03/26/20 metformin 500 mg tablet 500 mg PO BID DIABETES 10/27/21 baclofen 20 mg tablet 20 mg PO TID PAIN 11/17/21 cholecalciferol (vitamin D3) 125 mcg (5,000 unit) tablet (Vitamin D3) 125 mcg PO DAILY SUPPLEMENT 11/17/21 coenzyme Q10 100 mg tablet 100 mg PO QHS SUPPLEMENT 11/17/21 montelukast 10 mg tablet (Singulair) 10 mg PO QHS LUNGS 11/17/21 omega-3 fatty acids 1,000 mg PO DAILY SUPPLEMENT 11/17/21 acetaminophen 500 mg tablet 500 mg PO TID PAIN 04/26/22 ammonium lactate 12 % lotion 1 applic topical PRN PRN SKIN 04/26/22 docusate sodium 100 mg capsule 100 mg PO BID PRN Constipation 04/26/22 magnesium oxide 500 mg PO DAILY supplement 04/26/22 pregabalin 100 mg capsule (Lyrica) 200 mg PO TID PAIN 04/26/22 vardenafil 20 mg tablet 20 mg PO DAILY PRN ERECTION 04/26/22 aspirin 81 mg tablet,delayed release 81 mg PO DAILY blood flow #30 tabs 07/26/22 clopidogrel 75 mg tablet 75 mg PO DAILY #30 tabs 07/26/22 empagliflozin 10 mg tablet (Jardiance) 10 mg PO DAILY #30 tabs 07/26/22 furosemide 40 mg tablet 40 mg PO DAILY #30 tabs 07/26/22 metoprolol tartrate 25 mg tablet 25 mg PO BID #60 tabs 07/26/22 polyethylene glycol 3350 17 gram oral powder packet 17 g PO DAILY #0 ea 07/26/22 sennosides 8.6 mg-docusate sodium 50 mg tablet (Stool Softener-Stimulant Laxative) 2 tab PO BID #0 tabs 07/26/22 Hospital Course Summary of Care Provided Hospital Course: This 62-year-old patient woman admitted with chief complaint of shortness of breath. Prior to that patient had chest pain on 07/06/2022. At that time his troponins were normal and he was discharged from ER after treatment for hyperkalemia. 1. Acute hypoxic respiratory failure secondary to HFrEF secondary to myocarditi s:-Patient with acute hypoxia having oxygen saturations of 81% on room air, tachycardia, tachypnea upon presentation. Patient on respiratory support with BiPAP overnight. Patient is diuresed well. Respiratory viral panel, COVID PCR, strep pneumo and Legionella antigens are negative. Coxsackie and B antibodies pending. Patient echo showed EF 20% with global LV dysfunction and stage III diastolic dysfunction. Last echo on 05/19/2022 shows EF 50% with no significant valvular disease. No leg swelling but mild pulmonary crackles. Heart failure core measures including intake and output, fluid restriction less than 1500 mL, daily weight monitoring, kidney and electrolytes monitoring. Lasix held as patient creatinine showed a jump of 0.5 mg. Patient had cardiac cath which shows patent SVG to OM and right PDA, MACK to LAD. Distal LAD totally occluded. Patient had fever on presentation therefore most probably myocarditis. 07/25: Shortness of breath has improved. Lungs clear. Lasix resumed. Disorganized and unusual behavior, sometimes confused and disoriented, exact etiology unclear. CT head reported normal. Patient on baclofen dose decreased to 10 mg 3 times daily.PT and OT ordered. Plan for discharge tomorrow. 07/26: Patient remains on room air. Plan for discharge after PT and OT. Discharge on Lasix 40 mg daily. Advised follow-up BMP with PCP in 1 to 2 weeks. 2. JUAN on CKD stage II: Patient creatinine increased to 1.76 from baseline 1.17, 1.29 due to diuretic. Hold Lasix and Entresto. Bicarb 32, anion gap 7. Serum sodium and potassium normal. 07/25: Creatinine back to normal on baseline. Lasix resumed. BP systolic 108. Consider Entresto later on if kidney function and BP holds good in normal range 07/26: Hold lisinopril for 5 more days recheck with PCP after BMP. 3. NSTEMI, type II due to demand ischemia secondary to suspected myocarditis Follow-up with marketing manager as outpatient in 2 to 3 weeks. 4. Acute 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 -Appears to be acute and related to above infection. On metoprolol. Later on consider Aldactone if kidney function gets better. -Continue Jardiance 10 mg--> monitor closely for signs of DKA -We will need follow-up echocardiogram in 6 to 8 weeks after goal-directed therapy 5. Hypokalemia and hypophosphatemia, corrected and resolved CAD status post CABG x3 -Patient with significant cardiac history having CABG in 2018 at [facility] by Dr. Unai -MACK to LAD/SVG to OM/SVG to left PDA -Not had any issues since his CABG -Cardiac catheterization done on 07/23/2022 shows patent grafts x3 -Continue aspirin -See above Hyperlipidemia -Continue home statin -Lipid panel shows a total cholesterol of 123/LDL of 52/HDL of 43 indicating good cholesterol control Hypertension -Continue metoprolol but increase to 25 mg p.o. twice daily -Continue amlodipine 10 mg daily If kidney function remains normal, consider Entresto as an outpatient DM-2 -Most recent hemoglobin A1c was from 11/23/2021 and was 5.6--> A1c is slightly higher at 6.1 but still well controlled -Hold home metformin and will likely need to discontinue on discharge Patient on SLGP 2 inhibitor with Jardiance 10 mg daily with heart failure -Continue sliding scale -Accu-Cheks as ordered Neuropathy/chronic pain -Continue Lyrica but decrease dose to 100 mg 3 times daily -Home dose is 200 mg 3 times daily however this is significantly higher than recommended max dose of 300 mg daily -Continue baclofen ED -Restart home medications at discharge History of alcohol use There was concern that patient might have alcoholic withdrawal but does not have tremors. He denies chronic alcohol use states he takes 0 amount of alcohol. H&P shows patient uses alcohol infrequently on holidays or special occasions mainly, beer. History of tobacco use -Uses chewing tobacco -We will provide nicotine patch if needed DVT prophylaxis -Heparin drip CODE STATUS -Full code is verified admission the emergency department Discharge medication reconciliation done. Discharge follow-up instructions completed. Discharge process discussed with the patient and all questions were answered to patient's satisfaction. Prescription for aspirin, Plavix, Jardiance and metoprolol sent to patient's preferred pharmacy. Total time spent, exact 35 minutes on discharge meds reconciliation, examination, coordination of care with nurses and ancillary staff, review of imaging and blood test and discussion with the patient on follow-up instructions. Physical Exam Narrative Seen and examined. Patient on room air. No chest pain or shortness of breath. Physical exam General: Alert, Oriented x3, Cooperative HEENT: Atraumatic, PERRLA, EOMI, Normocephalic Oral: No Gingival or Mucosal Lesions/ Ulcerations Neck: Supple, No JVD, Negative Carotid Bruits Lungs: Air entry equal in bilateral lung bases. Lungs clear, no crepitations. Cardiovascular: Regular rate, Regular Rhythm, PVCs, normal S1, Normal S2, No murmurs Abdomen: Bowel Sounds Present, Soft, Non Tender, Non-Distended : No renal angle tenderness. No suprapubic tenderness. Extremities: No significant pedal edema, Capillary Refill Less than 3 Seconds Skin: No rashes, No breakdown Musculoskeletal/spine: Sitting upright. Spinal muscle tenderness is much improved. ROM restricted. Neurological: Cranial nerves II-XII grossly intact, DTR 2+/4 and Symmetrical, Neuro grossly intact Psych/Mental Status: Inconsistent personality, sometimes joking. Weight / BMI Weight Weight: 206 lb 9.17 oz Body Mass Index (BMI) 32.1 ABG / Lab / Microbiology Data Result Diagrams: 07/23/22 04:11 07/26/22 06:32 Laboratory: Laboratory Results - last 24 hr 07/25/22 11:54: POC Glucose 279 H 07/25/22 17:00: POC Glucose 214 H 07/25/22 21:18: POC Glucose 288 H 07/26/22 06:32: Sodium 140, Potassium 4.1, Chloride 103, Carbon Dioxide 26.0, BUN 42 H, Creatinine 1.11, Estim Creat Clear Calc 72.16, Est GFR (MDRD) Af Amer 87, Est GFR (MDRD) Non-Af 72, BUN/Creatinine Ratio 37.8 H, Glucose 197 H, Calcium 9.4, Phosphorus 3.4, Albumin 3.0 L 07/26/22 08:33: POC Glucose 205 H Microbiology: Microbiology 07/21/22 10:40 Blood Culture (Wb) - Anticubital Right Blood Culture - Final No growth in 5 days. 07/21/22 10:50 Blood Culture (Wb) - Left Hand Blood Culture - Final No growth in 5 days. 07/21/22 14:05 Mucosa - Nasopharyngeal Respiratory Panel (PCR) - Final 07/21/22 15:20 Interface Orders Streptococcus pneumoniae Antigen (M - Final 07/21/22 15:20 Interface Orders Legionella Antigen - Final 07/21/22 10:30 Nasal Secretion SARS-CoV-2 & FLU Antigen (Rapid) - Final D/C Instructions Discharge Diet: Low fat / Low cholesterol, 1800 Calorie Control Diet, 6 Cup Fluid Restriction and 2000 mg Sodium Diet Call your doctor if you observe: Fever of 101 or Higher, Coldness, Increased Pain, Numbness or Tingling, Change in Color, Inability to urinate, Inability to have a bowel movement, Shortness of breath, Dizziness, Fainting spells, Swelling in the ankles, Chest pain, Prolonged hiccupping, Increased palpitations (irregular heartbeat), Calf discomfort and Uncontrolled pain Meaningful Use Info Meaningful Use Diagnoses (Choose all that apply): CHF CHF REINIER/ARB ordered at discharge?: No Reason REINIER/ARB not ordered?: Worsening renal dysfunctn Documented LVEF (%): 20 Discharge Plan Admission Admit Date/Time: 07/21/22 13:13 Primary Reason for Your Visit: Acute hypoxic respiratory failure due to acute HFrEF Attending Provider: Moe Clarke Primary Care Provider: Avery Escalante Consulting Providers: Senthil Hoang ; [place] rBooke ; Martin Serrano ; Jorgito Lugo ; Jaciel Mendez ; Janis Sidhu NP ; Magaly Bull Discharge Orders/Prescriptions Prescriptions: New furosemide 40 mg Tablet 40 mg PO DAILY Qty: 30 2RF Rx Instructions: Take an additional 40 mg dose at 5 PM for increased leg swelling or weight gain 5 pounds in 1 week. clopidogrel 75 mg Tablet 75 mg PO DAILY Qty: 30 2RF metoprolol tartrate 25 mg Tablet 25 mg PO BID Qty: 60 2RF Jardiance 10 mg Tablet 10 mg PO DAILY Qty: 30 0RF polyethylene glycol 3350 17 gram Powder In Packet 17 g PO DAILY Qty: 0 0RF Rx Instructions: Cvzm-yig-xnvxkly sennosides-docusate sodium [Stool Softener-Stimulant Laxat] 8.6-50 mg Tablet 2 tab PO BID Qty: 0 0RF Rx Instructions: Ouwx-zvh-stonccn Continued amlodipine 10 mg tablet 10 mg PO DAILY albuterol sulfate [ProAir HFA] 90 mcg/actuation HFA aerosol inhaler 2 puff INHALATION Q4H PRN (Reason: Sob &/Or Wheezing) simvastatin 10 mg tablet 10 mg PO QHS metformin 500 mg tablet 500 mg PO BID pregabalin [Lyrica] 100 mg capsule 200 mg PO TID vardenafil 20 mg tablet 20 mg PO DAILY PRN (Reason: ERECTION) docusate sodium 100 mg capsule 100 mg PO BID PRN (Reason: Constipation) magnesium oxide 250 mg magnesium tablet 500 mg PO DAILY ammonium lactate 12 % lotion 1 applic topical PRN PRN (Reason: SKIN) desonide 1 APPLIC cream 1 applic TOPICAL BID PRN (Reason: Dry Skin) ketoconazole 15 GM cream 1 applic TOPICAL DAILY PRN (Reason: Dry Skin) Label Comments: TO FACE DAILY insulin lispro 100 UNIT/ML insulin pen See Protocol SQ TIDCM Protocol: 6. Sliding Scale Insulin Custom Condition: mg/dl range Dose/Route: Number of Units Protocol Text: Custom Sliding Scale Label Comments: 12-20 UNITS Rx Instructions: sliding scale biotin 1 MG tablet 1 mg PO DAILY cyanocobalamin (vitamin B-12) 1,000 MCG/ML solution 1,000 mcg IM Q30D baclofen 20 mg Tablet 20 mg PO TID montelukast [Singulair] 10 mg Tablet 10 mg PO QHS omega-3 fatty acids Capsule 1,000 mg PO DAILY cholecalciferol (vitamin D3) [Vitamin D3] 125 mcg (5,000 unit) Tablet 125 mcg PO DAILY coenzyme Q10 100 mg Tablet 100 mg PO QHS acetaminophen 500 mg tablet 500 mg PO TID Changed aspirin 81 mg tablet,delayed release (DR/EC) 81 mg PO DAILY MDD . Qty: 30 3RF Held cetirizine 10 mg tablet 10 mg PO DAILY Hold Instructions: 1 L as needed for nasal allergies/rhinitis or cold symptoms lisinopril 5 MG tablet 5 mg PO QDAY Hold Instructions: Hold for 5 days and then resume 2.5 mg daily and then uptitrate as tolerated by kidney function. Discontinued turmeric root extract 500 mg tablet 1,000 mg PO DAILY vrlwukacd-[id number]-[id number]-algal oil [Foltanx RF] 3 mg-35 mg-2 mg -90.314 mg capsule 1 cap PO BID metoprolol tartrate 25 mg tablet 12.5 mg PO BID MDD . Referrals / Follow Up: [place] Brooke MD [Med Staff - Active Staff] - Within 1 Month (for respiratory failure and PFT) Avery Escalante DO [Primary Care Provider] - Within 1 Week Mat Ring MD [Med Staff - Active Staff] - Janis Sidhu NP, COMPUTER APPLICATIONS ENGINEER-C [Med Staff - Adv Practice Prof] - Within 2 Weeks Disposition Disposition (needs filled in before D/C Order can be placed): Home, Self Care Charges/Coding Visit Charges Inpatient E&M: 34070 Disch Hosp
--- NOTE | 2022-07-26 11:42 | CASEMGMT ---
Addendum entered by Sri Eason 07/26/22 12:59: Pt to be sent home on Jardiance at discharge and med e-scribed to [facility] pharmacy previously. Call to [facility] and per yun, pt has no co-pay for Jardiance. This RN CM to room to discuss discharge plan and pt states no need for any further therapy at discharge. Pt aware PCP can order therapy once home, if he changes his mind. Pt states no further questions/concerns/needs. Boubacar ALCARAZ CM Original Note: Per Adrienne ALCARAZ, pt does not qualify for home oxygen at discharge. Boubacar ALCARAZ CM
[2022-07-26 13:05] LABS: Bedside Glucose 359 mg/dL (74-106)
--- NOTE | 2022-07-26 15:44 | PHA.DC.MR ---
Pharmacy Service has performed discharge medication reconciliation for this patient. The patient's discharge medication list was reviewed for discrepancies and discrepancies were resolved. Patient was in the shower when counseling attempted, was not able to student loan counselor. Home Medications biotin 1 mg tablet 1 mg PO DAILY general health 04/01/18 desonide 0.05 % topical cream 1 applic topical BID PRN Dry Skin 04/01/18 insulin lispro 100 unit/mL subcutaneous pen See Protocol SQ TIDCM diabetes 04/01/18 ketoconazole 2 % topical cream 1 applic topical DAILY PRN Dry Skin 04/01/18 albuterol sulfate 90 mcg/actuation aerosol inhaler (ProAir HFA) 2 puff inhalation Q4H PRN Sob &/Or Wheezing 08/13/19 amlodipine 10 mg tablet 10 mg PO DAILY blood pressure 08/13/19 cetirizine 10 mg tablet 10 mg PO DAILY allergies 08/13/19 simvastatin 10 mg tablet 10 mg PO QHS cholesterol 08/13/19 cyanocobalamin (vitamin B-12) 1,000 mcg/mL injection solution 1,000 mcg IM Q30D supplement 08/22/19 lisinopril 5 mg tablet 5 mg PO QDAY blood pressure 03/26/20 metformin 500 mg tablet 500 mg PO BID DIABETES 10/27/21 baclofen 20 mg tablet 20 mg PO TID PAIN 11/17/21 cholecalciferol (vitamin D3) 125 mcg (5,000 unit) tablet (Vitamin D3) 125 mcg PO DAILY SUPPLEMENT 11/17/21 coenzyme Q10 100 mg tablet 100 mg PO QHS SUPPLEMENT 11/17/21 montelukast 10 mg tablet (Singulair) 10 mg PO QHS LUNGS 11/17/21 omega-3 fatty acids 1,000 mg PO DAILY SUPPLEMENT 11/17/21 acetaminophen 500 mg tablet 500 mg PO TID PAIN 04/26/22 ammonium lactate 12 % lotion 1 applic topical PRN PRN SKIN 04/26/22 docusate sodium 100 mg capsule 100 mg PO BID PRN Constipation 04/26/22 magnesium oxide 500 mg PO DAILY supplement 04/26/22 pregabalin 100 mg capsule (Lyrica) 200 mg PO TID PAIN 04/26/22 vardenafil 20 mg tablet 20 mg PO DAILY PRN ERECTION 04/26/22 aspirin 81 mg tablet,delayed release 81 mg PO DAILY blood flow #30 tabs 07/26/22 clopidogrel 75 mg tablet 75 mg PO DAILY #30 tabs 07/26/22 empagliflozin 10 mg tablet (Jardiance) 10 mg PO DAILY #30 tabs 07/26/22 furosemide 40 mg tablet 40 mg PO DAILY #30 tabs 07/26/22 metoprolol tartrate 25 mg tablet 25 mg PO BID #60 tabs 07/26/22 polyethylene glycol 3350 17 gram oral powder packet 17 g PO DAILY #0 ea 07/26/22 sennosides 8.6 mg-docusate sodium 50 mg tablet (Stool Softener-Stimulant Laxative) 2 tab PO BID #0 tabs 07/26/22
== END 2022-07-26 14:26 | disposition home or self-care (01) | DRG 192 ==
LOC: ED 12:28 → PCU 13:41
PROVIDERS: Internal Medicine Critical Care Medicine; Admitting Provider Internal Medicine; Emergency Provider Emergency Medicine; PCP Student in an Organized Health Care Education/Training Program; Visit Provider Internal Medicine
DX: I51.4 Myocarditis, unspecified (principal); J96.01 Acute respiratory failure with hypoxia; I50.23 Acute on chronic systolic (congestive) heart failure; I21.A1 Myocardial infarction type 2; N17.9 Acute kidney failure, unspecified; I42.9 Cardiomyopathy, unspecified; E83.39 Other disorders of phosphorus metabolism; I13.0 Hypertensive heart and chronic kidney disease with heart failure and stage 1 through stage 4 chronic kidney disease, or unspecified chronic kidney disease; E11.22 Type 2 diabetes mellitus with diabetic chronic kidney disease; E11.40 Type 2 diabetes mellitus with diabetic neuropathy, unspecified; E11.51 Type 2 diabetes mellitus with diabetic peripheral angiopathy without gangrene; Z79.4 Long term (current) use of insulin; N18.2 Chronic kidney disease, stage 2 (mild); D72.829 Elevated white blood cell count, unspecified; E78.5 Hyperlipidemia, unspecified; I25.10 Atherosclerotic heart disease of native coronary artery without angina pectoris; F17.220 Nicotine dependence, chewing tobacco, uncomplicated; E87.6 Hypokalemia; I34.81 Nonrheumatic mitral (valve) annulus calcification; R41.0 Disorientation, unspecified; Z20.822 Contact with and (suspected) exposure to COVID-19; G89.4 Chronic pain syndrome; R50.9 Fever, unspecified; Z79.82 Long term (current) use of aspirin; Z79.84 Long term (current) use of oral hypoglycemic drugs; Z86.73 Personal history of transient ischemic attack (TIA), and cerebral infarction without residual deficits; Z95.1 Presence of aortocoronary bypass graft
CPT/HCPCS: 36415; 36600; 70450; 71045; 71275; 80048; 80053; 80061; 80069; 81001; 82803; 82962; 83036; 83735; 83880; 84100; 84145; 84443; 84484; 85025; 85379; 85610; 85730; 86658; 87040; 87428; 87449; 87633; 87635; 93005; 93306; 93455; 94002; 94003; 94762; 97162; 97166; 97802; 99152; 99153; 99251; 99285; 99406; J7040; J7050; Q9957; Q9967; A4216; C1760; C1769; C8929; G0463; J1940; U0003; U0005

== ENCOUNTER → 2022-09-17 | Outpatient (CLI) | payer MEDICAID, SELFPAY ==
--- NOTE | 2022-09-18 07:59 | PFT ---
INTRODUCTION: The patient is a 62-year-old male that presents for pulmonary function studies secondary to a diagnosis of dyspnea. Respiratory therapy reported good patient effort. Bronchodilators were used during testing. INTERPRETATION: Forced expiration spirometry demonstrates no evidence of a large airways obstructive ventilatory defect. There was a significant response to aerosolized bronchodilators, based upon change noted in FVC. Spirograms are of good quality and plateau normally. Body plethysmography was performed and demonstrated a decreased TLC to 4.76 L, 72% of predicted, indicative of a mild restrictive ventilatory impairment. Diffusing capacity by single breath CO was within normal limits. IMPRESSION: Mild restrictive ventilatory impairment, likely secondary to body habitus. Significant bronchodilator response was noted.
== END | disposition home or self-care (01) ==
LOC: PSN 10:29
PROVIDERS: PCP Student in an Organized Health Care Education/Training Program; Referring Provider Nurse Practitioner Acute Care; Visit Provider Nurse Practitioner Acute Care
DX: R06.00 Dyspnea, unspecified (principal)
CPT/HCPCS: 94060; 94726; 94729

== ENCOUNTER → 2022-11-05 | Outpatient (CLI) | payer MEDICAID, SELFPAY ==
--- NOTE | 2022-11-05 14:47 | CT_ITS ---
STUDY: CT Abdomen And Pelvis W/ Contrast Injection 11/05/2022 4:24 PM REASON FOR EXAM: Male, 62 years old. ABDOMINAL PAIN LOWER ABD PAIN TECHNIQUE: Transaxial images were obtained with oral contrast, and with Oral IV Readi-CAT 100mL Isovue-370 intravenous contrast. Individualized dose optimization techniques were used for this CT. COMPARISON: 07.14.13. FINDINGS: There are atherosclerotic calcifications of visualized coronary arteries. Multiple median sternotomy wires are noted consistent for cardiac surgery. Unremarkable liver. Unremarkable gallbladder and extrahepatic biliary system. Unremarkable spleen. Unremarkable pancreas. Unremarkable bilateral adrenal glands. No acute findings of the right kidney. No acute findings of the left kidney. Unremarkable visualized stomach. Unremarkable small intestine. Unremarkable colon. There are surgical clips in the region of the appendix consistent with a prior appendectomy. There are calcifications of the abdominal aorta. This is consistent for atherosclerotic disease. There is no abdominal aortic aneurysm. Unremarkable inferior vena cava. Subcentimeter mesenteric lymph nodes. Urinary bladder wall has wall thickening. This can be related to a partially contractile state. However, a cystitis is not excluded. Urinalysis should be performed in an effort to exclude cystitis. There is an umbilical hernia containing fat. There are diffuse degenerative changes of the visualized lumbar spine. Spinal fusion hardware noted. There are bilateral pars articularis defects at L5-S1. There is a Grade 1 anterolisthesis of L5 on S1. CT/Abdomen/Pelvis WITH Contrast IMPRESSION: (NOT LISTED IN ORDER OF SIGNIFICANCE) Urinary bladder wall has wall thickening. This can be related to a partially contractile state. However, a cystitis is not excluded. Urinalysis should be performed in an effort to exclude cystitis. Other findings as above. Electronically Signed: Juan Ramon Barnes MD at 16:27 EST ,
[2022-11-05 15:30] LABS: CREATININE FINGERSTICK 0.9 mg/dL (0.70-1.30); EGFR FINGERSTICK > 60.0000 mL/min (>60)
== END | disposition home or self-care (01) ==
LOC: CT 14:46
PROVIDERS: PCP Student in an Organized Health Care Education/Training Program; Visit Provider Student in an Organized Health Care Education/Training Program
DX: R10.30 Lower abdominal pain, unspecified (principal)
CPT/HCPCS: 74177; Q9967; A4216

== ENCOUNTER → 2022-12-14 | Outpatient (CLI) | payer MEDICAID, SELFPAY ==
--- NOTE | 2022-12-14 14:02 | ECHOCS_ITS ---
Reason For Study: SOB Procedure This was a 2D Doppler, Color Flow transthoracic echocardiogram. The study was technically difficult. Contrast injection was performed. Patient had a difficult time staying in position and tolerating probe due to a rib out of place, back and left hip pain. Exam performed in department. Left Ventricle Mildly dilated left ventricle. Moderate global left ventricular systolic dysfunction. The estimated ejection fraction is 30 %. Stage 3 diastolic dysfunction. Right Ventricle Normal RV size. Normal systolic function. Atria The left atrium is mildly enlarged. Normal right atrium. No doppler evidence for ASD. Mitral Valve There is mild to moderate mitral annular calcification. Extension of the mitral annular calcification onto the base of the posterior mitral valve leaflet. Mild diffuse mitral valve thickening. Mild focal mitral valve calcification of the anterior leaflet. Mild (1+) mitral valve insufficiency. Tricuspid Valve Normal tricuspid valve. Mild tricuspid valve insufficiency. Right ventricular systolic pressure estimated to be 44 mmHg. Aortic Valve Trisinus/trileaflet aortic valve. Mild diffuse aortic valve thickening. Moderate focal aortic valve calcification. Mild aortic stenosis. Pulmonic Valve The pulmonic valve is not well visualized. Mild (1+) pulmonic valve insufficiency. Great Vessels Normal sized aortic root. Calcified aortic root. Pericardium/Pleural No pericardial effusion. Medication 20 gauge I.V. with prn adaptor inserted into right arm. Diluted definity 2ml given slow IV push to enhance endocardial definition. MMode/2D Measurements & Calculations LVIDd: 5.3 cm IVSd: 1.0 cm LVOT diam: 2.0 cm LVIDs: 4.6 cm LVPWd: 1.1 cm RVDd: 4.2 cm FS: 12.5 % LVOT area: 3.0 cm2 Ao root diam: 3.5 cm LAV(MOD-sp4): 91.6 ml LA A4 area: 27.5 cm2 LA dimension: 5.1 cm RA A4 area: 17.1 cm2 Time Measurements MV dec time: 0.16 sec Doppler Measurements & Calculations MV E max bucky: 152.9 cm/sec Lat Peak E' Bucky: 6.4 cm/sec Med Peak E' Bucky: 6.3 cm/sec MV A max bucky: 26.7 cm/sec E/E' lat: 23.8 E/E' med: 24.4 MV E/A: 5.7 MV V2 max: 166.8 cm/sec MV P1/2t max bucky: 166.0 cm/sec Ao V2 max: 135.2 cm/sec MV max P.1 mmHg MV P1/2t: 66.8 msec Ao max P.3 mmHg MV V2 mean: 68.0 cm/sec MV dec slope: 728.6 cm/sec2 EMILIANO(V,D): 1.9 cm2 MV mean P.7 mmHg MVA(P1/2t): 3.3 cm2 MV V2 VTI: 33.4 cm LV V1 max: 83.4 cm/sec MR max bucky: 417.8 cm/sec PA V2 max: 102.5 cm/sec LV V1 max P.8 mmHg MR max P.8 mmHg MR mean bucky: 317.8 cm/sec MR mean P.0 mmHg MR VTI: 128.0 cm TR max bucky: 298.9 cm/sec TR max P.7 mmHg ECHO/Echo Complete W/ Contrast Interpretation Summary The study was technically difficult. Contrast injection was performed. Mildly dilated left ventricle. Moderate global left ventricular systolic dysfunction. The estimated ejection fraction is 30 %. The left atrium is mildly enlarged. There is mild to moderate mitral annular calcification. Extension of the mitral annular calcification onto the base of the posterior mi tral valve leaflet. Mild diffuse mitral valve thickening. Mild focal mitral valve calcification of the anterior leaflet. Mild (1+) mitral valve insufficiency. Mild tricuspid valve insufficiency. Mild aortic stenosis. Mild (1+) pulmonic valve insufficiency. Calcified aortic root. Right ventricular systolic pressure estimated to be 44 mmHg. Stage 3 diastolic dysfunction. Ordering Physician: Mat Ring Performed By: Celestino Brand RCS
== END | disposition home or self-care (01) ==
PROVIDERS: PCP Student in an Organized Health Care Education/Training Program; Visit Provider Internal Medicine Cardiovascular Disease
DX: I25.10 Atherosclerotic heart disease of native coronary artery without angina pectoris (principal); I51.4 Myocarditis, unspecified; I42.9 Cardiomyopathy, unspecified; R06.00 Dyspnea, unspecified; Z95.1 Presence of aortocoronary bypass graft
CPT/HCPCS: 93306; Q9957; A4216; C8929

== ENCOUNTER 2022-12-16 16:30 | Outpatient (RCR) | payer MEDICAID, SELFPAY ==
--- NOTE | 2022-12-16 18:38 | HP.PTEVAL ---
Patient's Visit Information RICK GEORGE Jr. is a 62 year old M referred to Physical Therapy by Dr. Elizabeth Stevens, YOAN with a diagnosis of DORSALGIA, ARHRODESIS,SEGEMENTAL AND SOMATIC DYSFUNCTION PELVIC /THORACIC. Date of Evaluation: 12/16/22 Physical Therapist: Lio Farrell, PT, Cert MDT, OCS - Visit Plan Frequency: 2x /Week Duration: 4 Weeks Plan: PT INTERVETIONS DLS ,POSTURAL EX'S , THORACIC STRENGTHENING FLEXABLITY AND BLE STRENGTHNEING - Subjective This 62 y/o male presents to physical therapy with back and pelvic pain. Patient has had back pain 15 years . Patient had s/p lumbar fusion L5-S1 with laminectomy done at 12/08. Patient didn't really help. 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 Patient see DR Stevens for treatment which helps some. No recent diagnostics. Patient didn't received post surgery. Pain medications Narco , bactofilin ,and Lyrica. Patient also sees pain management DR Kenyon with hip injections and plan for another injections. Location of mid thoracic to Lumbar spine with radicular symptoms to knee. Aggravating bending ,lifting ,sitting ,walking and standing < 5 mins. Denies paresthesia/tingling. Bowel/bladder . Coughing/sneezing -. Pain affects sleeping . Although ,there is no abnormal night pain. 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 Patient goal is to decrease pain and improve function. SOCIAL: . VOCATION: [employer] - Pain Bilateral Back Pain Intensity (Out of 10): 9 Pain Intensity Range: 10 Left Lower Extremity Pain Intensity (Out of 10): 9 Pain Intensity Range: 10 - Objective POSTURE: mild forward posture ,asymmetries pelvis. PALPATION: LS/SI ,Paraspinals tender. GAIT: reciprocal pattern slow apoorva mild forward posture antalgic gait left side. NEURO: denies paresthesia/tingling ,reflexes L3-4,L4-5,L5-S1 1/3. MMT: quads 4/5 ,(peak force) hip flexion 18.8 right ,14,2,ankle 4/5. FLEXABLITY : min/mod limited hamstrings ,piriformis mod limited. PROM: hip ER left 10 degrees ,right 30 degrees. LUMBAR ROM: flexion mod loss ,extension mod/severe loss ,side glides mod loss - Special Tests L/S Slump test left side: Negative L/S Slump test right side: Negative L/S Left Straight Leg Raise: Positive L/S Right Straight Leg Raise: Negative - Balance/Special Test Scores Oswestry Low Back Score: 29 - Goals Goal 1:: I with HEP for back Goal Time Frame: 4-6 Weeks Goal 2:: Patient to demonstrate 50% improvement with increase function and less pain Goal Time Frame: 4-6 Weeks Goal 3:: Patient to improve lumbar ROM for function of recovery to put on shoes Goal Time Frame: 4-6 Weeks Goal 4:: Patient increase peak force of left by 5-10 to improve gait Goal Time Frame: 4-6 Weeks Goal 5:: Patient to improve back oswestry score by 5 points to improve QOL. Goal Time Frame: 4-6 Weeks - Rehabilitation Potential Physical Therapy Diagnosis: This patient had s/p lumbar fusion 11/2021 with pain and weakness with postural and core causing postural deficits along with weakness in legs with pain occurs with pain occurs with position with walking/standing thus benefit from skilled PT Rehabilitation Potential: Good - Anticipated Interventions Patient/Client Instruction: Educate patient on: Condition, Plan of Care For the Purpose of:: To decrease pain, To increase ROM, To improve muscle performance and motor function, To increase tolerance to activity/condition/position, To improve ability of physical actions for home/community/work/leisure, To improve gait and locomotor functions, To increase flexibility/ROM, To improve endurance, To improve balance Therapeutic Exercise to Include: Strength training, Endurance training, Body mechanics, Postural training, Flexibilty training, Dynamic Lumbar Stabilization For the Purpose of:: To decrease pain, To increase ROM, To increase tolerance to activity/condition/position, To improve performance and independence with ADL's, To improve ability of physical actions for home/community/work/leisure, To improve health of tissue, To decrease soft tissue restriction, To increase flexibility/ROM TENS: Yes IF ES: Yes Cryotherapy (ice pack, ice massage): Yes Thermo therapy (hot pack): Yes Ultrasound (thermal/non thermal): Yes For the Purpose of:: To decrease pain, To improve nutrient delivery to tissue, To increase oxygenation perfusion, To improve health of tissue, To decrease soft tissue restriction Thank you for the opportunity to evaluate your patient. For Medicare and Medicare HMO plans, please review the plan of care and approve it. It will need to be FAXED BACK to us at [phone] for Medicare purposes. For Medicare only, by signing this I certify the plan of care. Please let me know if there are questions or concerns regarding this plan of care. Physician Signature: Date:
--- NOTE | 2023-05-15 18:26 | HP.PT.NRP ---
Patient Information Patient Information: RICK GEORGE Jr. was seen in my office for initial evaluation on 12/16/22. The following Plan of Care was established for this patient: POC Established Initial Frequency: 2x /Week Initial Duration: 4 Weeks Anticipated Interventions Patient/Client Instruction: Educate patient on: Condition and Plan of Care For the Purpose of:: To decrease pain, To increase ROM, To improve muscle performance and motor function, To increase tolerance to activity/condition/position, To improve ability of physical actions for home/community/work/leisure, To improve gait and locomotor functions, To increase flexibility/ROM, To improve endurance and To improve balance Therapeutic Exercise to Include: Strength training, Endurance training, Body mechanics, Postural training, Flexibilty training and Dynamic Lumbar Stabilization For the Purpose of:: To decrease pain, To increase ROM, To increase tolerance to activity/condition/position, To improve performance and independence with ADL's, To improve ability of physical actions for home/community/work/leisure, To improve health of tissue, To decrease soft tissue restriction and To increase flexibility/ROM TENS: Yes IF ES: Yes Cryotherapy (ice pack, ice massage): Yes Thermo therapy (hot pack): Yes Ultrasound (thermal/non thermal): Yes For the Purpose of:: To decrease pain, To improve nutrient delivery to tissue, To increase oxygenation perfusion, To improve health of tissue and To decrease soft tissue restriction Last Seen Last Seen: This patient was last seen in our office . Pertinent comments regarding their Physical therapy will appear below: Patient was seen for PT evaluation for HEP At this point I will be discontinuing this patient from physical therapy. I would be happy to see this patient again in the future if found appropriate by the physician. Thank you! Lio Farrell, PT, Cert MDT, OCS Balance/Gait/Functional tests Balance/Special Test Scores Oswestry Low Back Score: 29
== END 2022-12-16 19:00 | disposition home or self-care (01) ==
LOC: PT 16:30
PROVIDERS: PCP Student in an Organized Health Care Education/Training Program; Referring Provider Chiropractor; Visit Provider Chiropractor
DX: M99.02 Segmental and somatic dysfunction of thoracic region (principal); M99.05 Segmental and somatic dysfunction of pelvic region; M54.9 Dorsalgia, unspecified; Z98.1 Arthrodesis status; F11.20 Opioid dependence, uncomplicated
CPT/HCPCS: 80307; 97162

== ENCOUNTER → 2022-12-16 | Outpatient (CLI) | payer MEDICAID, SELFPAY ==
[2022-12-16 14:28] LABS: Amphetamine Urine VISTA NEGATIVE (<1000 ng/mL); Barbiturate Urine VISTA NEGATIVE (< 200 ng/mL); Benzodiazepine Urine VISTA NEGATIVE (< 200 ng/mL); Cocaine Urine VISTA NEGATIVE (< 300 ng/mL); Ecstacy Urine VISTA NEGATIVE (< 500 ng/mL); Methadone Urine VISTA NEGATIVE (< 300 ng/mL); PCP Urine VISTA NEGATIVE (< 25 ng/mL); THC Urine VISTA NEGATIVE (< 50 ng/mL); Vista UDS pH Range 5
== END | disposition home or self-care (01) ==
LOC: LAB 13:42
PROVIDERS: PCP Student in an Organized Health Care Education/Training Program; Referring Provider Anesthesiology Pain Medicine; Visit Provider Anesthesiology Pain Medicine
DX: F11.20 Opioid dependence, uncomplicated (principal)
CPT/HCPCS: 80307